=== PATIENT | female | born 1960 | race Caucasian/White ===

== ENCOUNTER 2022-09-22 13:59 | Outpatient (REF) | payer OTHER, SELFPAY | END 2022-09-22 14:00 | LOC: LAB 13:59 | PROVIDERS: PCP Family Medicine; Visit Provider Family Medicine | DX: J18.9 Pneumonia, unspecified organism (principal) | CPT/HCPCS: 87070; 87205 ==

== ENCOUNTER 2022-09-22 16:51 | Inpatient (IN) | payer OTHER, SELFPAY ==
[2022-09-22] VITALS (16 sets, daily range): BP systolic 105–123; BP diastolic 51–68; PULSE 118–133; RESP 20–28; TEMP 36.6; O2SAT 86–97; BMI 17.0
--- NOTE | 2022-09-22 17:46 | ECG_ITS ---
[facility] Test Date: 2022-09-22 Pat Name: PHOEBE STANLEY Department: Room: - Gender: Female [employer]: : 1960 Requested By: ADITHYA KENYON Order Number: [id number] Reading MD: ADITHYA KENYON Measurements Intervals Adams Rate: 131 P: 93 AK: 152 QRS: 86 QRSD: 70 T: 90 QT: 340 QTc: 417 Interpretive Statements 1120 Sinus tachycardia 4664 Twave abnormality, possible inferior ischemia 6220 Possible left atrial enlargement 9150 abnormal ECG No previous ECG available for comparison Electronically Signed On 09-23-2022 6:33:59 EDT by ADITHYA KENYON
--- NOTE | 2022-09-22 17:46 | XR_ITS ---
The [address] [address] Patient Name: PHOEBE STANLEY MRN: [id number] date: 1960 Sex: F Assigned Patient Location: ER Current Patient Location: ER Accession/Order Number: [id number] Exam Date: 09/22/2022 18:13 Report Date: 09/22/2022 18:41 At the request of: TRAV CHEN Procedure: XR chest 1V EXAM: XR chest 1V HISTORY: copd COMPARISON: 09/01/2022. TECHNIQUE: AP view of the chest. FINDINGS: There is no focal airspace consolidation. Peribronchial cuffing is noted. There are prominence of interstitial markings in bilateral lower lobes. The lungs are hyperinflated. There are stable biapical reticular opacities, likely scarring or mild atelectasis. The cardiomediastinal silhouette is not enlarged. There is blunting of right costophrenic sulcus. No evidence of pneumothorax are identified. No acute osseous abnormality. IMPRESSION: No focal consolidation. Lungs appear hyperinflated, suggestive of obstructive lung disease. Bilateral prominent interstitial markings which may represent edema, infiltrates or interstitial lung disease. Peribronchial cuffing, suggestive of viral or reactive airways disease. Blunting of right costophrenic sulcus, which may be related to a small effusion or scarring. Electronically authenticated by: NASREEN BELLO Date: 09/22/2022 18:41
[2022-09-22] MEDS: ALBUTEROL SULFATE 2.5 MG/3 ML VIAL NEB IH (17:54)
--- NOTE | 2022-09-22 18:14 | ED.GENADUL1 ---
Documented by User: Roopa Lee 09/22/22 19:30 HPI - General Adult General Chief complaint: Shortness of Breath/Dyspnea Stated complaint: TROUBLE BREATHING Time Seen by Provider: 09/22/22 17:46 Source: patient Mode of arrival: Wheelchair Limitations: no limitations History of Present Illness HPI narrative: 62-year-old female presents with a chief complaint of shortness of breath. Patient has a history of chronic obstructive pulmonary disease wears 2 L of oxygen home. Patient states she was seen and admitted in August for the same symptoms. On her primary care physician today and told him of her symptoms anyone her to be admitted here to the hospital. Patient states she's had increased work of breathing. She does generally range around eighty-five eighty percent on HER-2 liters of home she is up and active. She states she been dropping below at home. Patient states she no longer smokes. Denies any fever. Denies chest pain, states she completed her dose of steroids yesterday. Related Data Home Medications Medication Instructions Recorded Confirmed albuterol sulfate 90 mcg/actuation 2 puff inhalation Q4H PRN 09/22/22 09/22/22 aerosol inhaler (Ventolin HFA) shortness of breath or wheezing budesonide 0.5 mg/2 mL suspension 1 mg inhalation Q12H 09/22/22 09/22/22 for nebulization budesonide 180 mcg/actuation 2 inh inhalation Q12H 09/22/22 09/22/22 breath activated powder inhaler (Pulmicort Flexhaler) cetirizine 10 mg tablet 10 mg PO DAILY 09/22/22 09/22/22 guaifenesin 600 mg tablet, 600 mg PO Q12H PRN congestion 09/22/22 09/22/22 extended release 12 hr (Mucus Relief ER) ipratropium 0.5 mg-albuterol 3 mg 3 ml inhalation Q6H PRN shortness 09/22/22 09/22/22 (2.5 mg base)/3 mL nebulization of breath soln montelukast 10 mg tablet 10 mg PO .hs 09/22/22 09/22/22 theophylline 400 mg 200 mg PO Q24H 09/22/22 09/22/22 tablet,extended release 24 hr tiotropium 2.5 mcg-olodaterol 2.5 2 puff inhalation Q24H 09/22/22 09/22/22 mcg/actuation mist for inhalation (Stiolto Respimat) Allergies Allergy/AdvReac Type Severity Reaction Status Date / Time levofloxacin [From Levaquin] Allergy Intermediate Verified 09/22/22 17:02 Review of Systems ROS Narrative All Systems are negative except as noted/marked.All systems reviewed and otherwise negative [facility] Medical History (Updated 09/23/22 @ 07:52 by Kaiden Bass MD) Family History (Updated 09/22/22 @ 21:17 by Veronika Almeida) Other Family history of myocardial infarction Social History (Updated 09/22/22 @ 21:18 by Veronika Almeida) Within the past year, how often did you have a drink containing alcohol: never Score interpretation: A score less than 3 is consistent with normal alcohol consumption. Smoking status: Former smoker Non-prescribed substance use: denies use Previous occupational history: disabled Highest level of school completed/degree received: GED or equivalent Are you now , , , , never or living with a partner: In a typical week, how many times do you talk on the telephone with family, friends, or neighbors: 3 or more times per week How often do you get together with friends or relatives: 3 or more times per week How often do you attend uatsdin or orthodox services: 1-3 times per year Do you belong to any clubs or organizations such as uatsdin groups unions, fraternal or athletic groups, or school groups: no Total score: 2 Score interpretation: A score of greater than or equal to 2 indicates the lowest level of social isolation. Little interest or pleasure in doing things: not at all Feeling down, depressed, or hopeless: not at all Feel stressed/tense/nervous/anxious/difficulty sleeping: not at all Do you think of yourself as: straight/heterosexual Gender Identity: female Exam Narrative Exam Narrative: P Nurses note and vital signs reviewed and patient is not hypoxic. General: The patient appears well and in no apparent distress. Patient is resting comfortably on cart. Skin: Warm, dry, no pallor noted. There is no rash noted. Head: Normocephalic, atraumatic Eye: Normal conjunctiva, no drainage, EOMI. PERRL Ears, Nose, Mouth, and Throat: oral mucosa is moist. Nares patent. Mouth without vesicles. Ear canals patent. Tm's without Erythema Cardiovascular: Regular Rate and Rhythm Respiratory: Diminished with accessory muscle usage wheezing throughout bilateral lower lungs . . Patient is in mild distress, n Back: non-tender, no CVA tenderness bilaterally to percussion. Musculoskeletal: The patient has no evidence of calf tenderness, no pitting edema, symmetrical pulses noted bilaterally Neurological: A&O x4, normal speech Psychiatric: Cooperative Constitutional Vital Signs - 24 hr 09/22/22 16:59 09/22/22 17:54 09/22/22 18:16 Temperature 97.8 F Pulse Rate 121 H Pulse Rate [Monitor] 130 H Respiratory Rate 24 20 Blood Pressure Blood Pressure [Left Arm] 123/68 H Pulse Oximetry 95 97 93 L Oxygen Delivery Method Nasal Cannula Nasal Cannula Oxygen Delivery Flow Rate 2 2 09/22/22 18:03 09/22/22 18:04 09/22/22 18:05 Temperature Pulse Rate Pulse Rate [Monitor] Respiratory Rate Blood Pressure 114/51 L Blood Pressure [Left Arm] Pulse Oximetry 91 L 86 L 87 L Oxygen Delivery Method Oxygen Delivery Flow Rate 09/22/22 18:06 09/22/22 19:23 Temperature Pulse Rate 133 H Pulse Rate [Monitor] Respiratory Rate 26 H Blood Pressure 113/63 Blood Pressure [Left Arm] Pulse Oximetry 95 96 Oxygen Delivery Method Nasal Cannula Oxygen Delivery Flow Rate 4 Course Vital Signs Vital signs: Vital Signs Temperature 97.8 F 09/22/22 16:59 Pulse Rate 130 H 09/22/22 16:59 Respiratory Rate 24 09/22/22 16:59 Blood Pressure 123/68 H 09/22/22 16:59 Pulse Oximetry 95 09/22/22 16:59 Oxygen Delivery Method Nasal Cannula 09/22/22 16:59 Oxygen Delivery Flow Rate 2 09/22/22 16:59 Temperature 97.6 F 09/24/22 05:50 Pulse Rate 112 H 09/24/22 10:21 Respiratory Rate 18 09/24/22 05:50 Blood Pressure 103/61 09/24/22 05:50 Pulse Oximetry 95 09/24/22 05:50 Oxygen Delivery Method Nasal Cannula 09/24/22 07:08 Oxygen Delivery Flow Rate 2 09/24/22 07:08 Fraction of Inspired Oxygen 2 09/23/22 20:00 Medical Decision Making MDM Narrative Medical decision making narrative: 62-year-old female with a history of chronic obstructive pulmonary disease presents the emergency room with difficulty breathing. She wears oxygen at home at 2 L. She states over last several days she's had increased shortness of breath. Her baseline oxygen saturation home was between eighty-eight and ninety-two percent. She states when she was doing dishes earlier today was in the low 80s. She called her primary care physician who is just from the emergency room and be admitted. Chest x-ray consistent with chronic obstructive pulmonary disease. CBC BMP within normal limits. Venous blood gas shows a pH of 7.66 and a vCO2 of 29. Patient was medicated here with site Medrol and a breathing treatment. Her breathing has improved. Patient continues to be tachycardic which has been her baseline previously. Patient denies any chest pain. Medical Records Medical records reviewed: Yes I reviewed the patient's medical records Lab Data Lab results reviewed: Yes I reviewed the patient's lab results Labs: Lab Results 09/22/22 09/22/22 09/22/22 Range/Units 18:07 18:13 19:10 WBC 10.3 (4.0-11.0) 10^3/uL RBC 4.21 (4.20-5.40) 10^6/uL Hgb 11.4 L (12.0-16.0) g/dL Hct 36.2 (36.0-48.0) % MCV 86.0 (81.0-99.0) fL MCH 27.1 (26.7-34.0) pg MCHC 31.5 (29.9-35.2) g/dL RDW 15.2 H (11.0-15.0) % Plt Count 194 (150-450) 10^3/uL MPV 9.6 (9.5-13.5) fL Neut % (Auto) 78.4 H (43.0-75.0) % Lymph % (Auto) 11.6 L (20.5-60.0) % Edmunds % (Auto) 7.8 (1.7-12.0) % Eos % (Auto) 1.6 (0.9-7.0) % Baso % (Auto) 0.3 (0.2-2.0) % Neut # (Auto) 8.1 H (1.4-6.5) 10^3/uL Lymph # (Auto) 1.2 (1.2-3.8) 10^3/uL Edmunds # (Auto) 0.8 (0.3-0.8) 10^3/uL Eos # (Auto) 0.2 (0.0-0.7) 10^3/uL Baso # (Auto) 0.0 (0.0-0.1) 10^3/uL Abs Immat Gran (auto) 0.03 (0.00-0.03) 10^3/uL Imm/Tot Granulo (auto) 0.3 (0.0-0.5) % VBG pH 7.665 H (7.330-7.430) VBG pCO2 29.8 L (40.0-52.0) mmHg Sodium 137 (136-145) mmol/L Potassium 4.0 (3.5-5.1) mmol/L Chloride 97 L (98-107) mmol/L Carbon Dioxide 39.5 H (21.0-32.0) mmol/L Anion Gap 4.5 BUN 6.0 L (7.0-18.0) mg/dL Creatinine 0.60 (0.55-1.02) mg/dL Est GFR ( Amer) >60 (>=60) Est GFR (Non-Af Amer) >60 (>=60) BUN/Creatinine Ratio 10.0 Glucose 114 H (74-106) mg/dL Calcium 9.1 (8.5-10.1) mg/dL Total Bilirubin 0.2 (0.2-1.0) mg/dL AST 21 (15-37) U/L ALT 36 (14-59) U/L Alkaline Phosphatase 86 (46-116) U/L Troponin I High Sens 4.5 (4.0-51.3) pg/mL NT-Pro-B Natriuret Pep 91.0 (<=900.0) pg/mL Total Protein 7.1 (6.4-8.2) g/dL Albumin 2.8 L (3.4-5.0) g/dL Globulin 4.3 g/dL Albumin/Globulin Ratio 0.7 ECG Data Interpretation: 09/22/22 sinus tachycardia 331 bpm, MA interval 102 ms, QRS duration 70 ms similar compared to previous EKG taken on 09/01/2022. No STEMI Discharge Plan Discharge Chief Complaint: Shortness of Breath/Dyspnea Clinical Impression: Acute exacerbation of chronic obstructive pulmonary disease Patient Disposition: Admitted As Inpatient Time of Disposition Decision: 19:32 Condition: Good Discharge Date/Time: 09/22/22 20:26 Documented by User: Berenice Kelly MD 09/24/22 10:24 HPI - General Adult General Chief complaint: Shortness of Breath/Dyspnea Stated complaint: TROUBLE BREATHING Time Seen by Provider: 09/22/22 17:46 Related Data Home Medications Medication Instructions Recorded Confirmed albuterol sulfate 90 mcg/actuation 2 puff inhalation Q4H PRN 09/22/22 09/22/22 aerosol inhaler (Ventolin HFA) shortness of breath or wheezing budesonide 0.5 mg/2 mL suspension 1 mg inhalation Q12H 09/22/22 09/22/22 for nebulization budesonide 180 mcg/actuation 2 inh inhalation Q12H 09/22/22 09/22/22 breath activated powder inhaler (Pulmicort Flexhaler) cetirizine 10 mg tablet 10 mg PO DAILY 09/22/22 09/22/22 guaifenesin 600 mg tablet, 600 mg PO Q12H PRN congestion 09/22/22 09/22/22 extended release 12 hr (Mucus Relief ER) ipratropium 0.5 mg-albuterol 3 mg 3 ml inhalation Q6H PRN shortness 09/22/22 09/22/22 (2.5 mg base)/3 mL nebulization of breath soln montelukast 10 mg tablet 10 mg PO .hs 09/22/22 09/22/22 theophylline 400 mg 200 mg PO Q24H 09/22/22 09/22/22 tablet,extended release 24 hr tiotropium 2.5 mcg-olodaterol 2.5 2 puff inhalation Q24H 09/22/22 09/22/22 mcg/actuation mist for inhalation (Stiolto Respimat) Allergies Allergy/AdvReac Type Severity Reaction Status Date / Time levofloxacin [From Levaquin] Allergy Intermediate Verified 09/22/22 17:02 [facility] Medical History (Updated 09/23/22 @ 07:52 by Kaiden Bass MD) Family History (Updated 09/22/22 @ 21:17 by Veronika Almeida) Other Family history of myocardial infarction Social History (Updated 09/22/22 @ 21:18 by Veronika Almeida) Within the past year, how often did you have a drink containing alcohol: never Score interpretation: A score less than 3 is consistent with normal alcohol consumption. Smoking status: Former smoker Non-prescribed substance use: denies use Previous occupational history: disabled Highest level of school completed/degree received: GED or equivalent Are you now , , , , never or living with a partner: In a typical week, how many times do you talk on the telephone with family, friends, or neighbors: 3 or more times per week How often do you get together with friends or relatives: 3 or more times per week How often do you attend uatsdin or orthodox services: 1-3 times per year Do you belong to any clubs or organizations such as uatsdin groups unions, [employer] or athletic groups, or school groups: no Total score: 2 Score interpretation: A score of greater than or equal to 2 indicates the lowest level of social isolation. Little interest or pleasure in doing things: not at all Feeling down, depressed, or hopeless: not at all Feel stressed/tense/nervous/anxious/difficulty sleeping: not at all Do you think of yourself as: straight/heterosexual Gender Identity: female Exam Constitutional Vital Signs - 24 hr 09/22/22 16:59 09/22/22 17:54 09/22/22 18:16 Temperature 97.8 F Pulse Rate 121 H Pulse Rate [Monitor] 130 H Respiratory Rate 24 20 Blood Pressure Blood Pressure [Left Arm] 123/68 H Pulse Oximetry 95 97 93 L Oxygen Delivery Method Nasal Cannula Nasal Cannula Oxygen Delivery Flow Rate 2 2 09/22/22 18:03 09/22/22 18:04 09/22/22 18:05 Temperature Pulse Rate Pulse Rate [Monitor] Respiratory Rate Blood Pressure 114/51 L Blood Pressure [Left Arm] Pulse Oximetry 91 L 86 L 87 L Oxygen Delivery Method Oxygen Delivery Flow Rate 09/22/22 18:06 09/22/22 19:23 Temperature Pulse Rate 133 H Pulse Rate [Monitor] Respiratory Rate 26 H Blood Pressure 113/63 Blood Pressure [Left Arm] Pulse Oximetry 95 96 Oxygen Delivery Method Nasal Cannula Oxygen Delivery Flow Rate 4 Course Vital Signs Vital signs: Vital Signs Temperature 97.8 F 09/22/22 16:59 Pulse Rate 130 H 09/22/22 16:59 Respiratory Rate 24 09/22/22 16:59 Blood Pressure 123/68 H 09/22/22 16:59 Pulse Oximetry 95 09/22/22 16:59 Oxygen Delivery Method Nasal Cannula 09/22/22 16:59 Oxygen Delivery Flow Rate 2 09/22/22 16:59 Temperature 97.6 F 09/24/22 05:50 Pulse Rate 112 H 09/24/22 10:21 Respiratory Rate 18 09/24/22 05:50 Blood Pressure 103/61 09/24/22 05:50 Pulse Oximetry 95 09/24/22 05:50 Oxygen Delivery Method Nasal Cannula 09/24/22 07:08 Oxygen Delivery Flow Rate 2 09/24/22 07:08 Fraction of Inspired Oxygen 2 09/23/22 20:00 Medical Decision Making MDM Narrative Medical decision making narrative: 62-year-old female with a history of chronic obstructive pulmonary disease presents the emergency room with difficulty breathing. She wears oxygen at home at 2 L. She states over last several days she's had increased shortness of breath. Her baseline oxygen saturation home was between eighty-eight and ninety-two percent. She states when she was doing dishes earlier today was in the low 80s. She called her primary care physician who is just from the emergency room and be admitted. Chest x-ray consistent with chronic obstructive pulmonary disease. CBC BMP within normal limits. Venous blood gas shows a pH of 7.66 and a vCO2 of 29. Patient was medicated here with site Medrol and a breathing treatment. Her breathing has improved. Patient continues to be tachycardic which has been her baseline previously. Patient denies any chest pain. Attending physician attestation I have seen and evaluated this patient. I have reviewed the mid-level provider?s documentation medical decision making and treatment plan. I agree with the mid-level provider?s assessment, and plan. Lab Data Labs: Lab Results 06/04/0409/22/22 09/22/22 Range/Units 18:07 18:13 19:10 WBC 10.3 (4.0-11.0) 10^3/uL RBC 4.21 (4.20-5.40) 10^6/uL Hgb 11.4 L (12.0-16.0) g/dL Hct 36.2 (36.0-48.0) % MCV 86.0 (81.0-99.0) fL MCH 27.1 (26.7-34.0) pg MCHC 31.5 (29.9-35.2) g/dL RDW 15.2 H (11.0-15.0) % Plt Count 194 (150-450) 10^3/uL MPV 9.6 (9.5-13.5) fL Neut % (Auto) 78.4 H (43.0-75.0) % Lymph % (Auto) 11.6 L (20.5-60.0) % Edmunds % (Auto) 7.8 (1.7-12.0) % Eos % (Auto) 1.6 (0.9-7.0) % Baso % (Auto) 0.3 (0.2-2.0) % Neut # (Auto) 8.1 H (1.4-6.5) 10^3/uL Lymph # (Auto) 1.2 (1.2-3.8) 10^3/uL Edmunds # (Auto) 0.8 (0.3-0.8) 10^3/uL Eos # (Auto) 0.2 (0.0-0.7) 10^3/uL Baso # (Auto) 0.0 (0.0-0.1) 10^3/uL Abs Immat Gran (auto) 0.03 (0.00-0.03) 10^3/uL Imm/Tot Granulo (auto) 0.3 (0.0-0.5) % VBG pH 7.665 H (7.330-7.430) VBG pCO2 29.8 L (40.0-52.0) mmHg Sodium 137 (136-145) mmol/L Potassium 4.0 (3.5-5.1) mmol/L Chloride 97 L (98-107) mmol/L Carbon Dioxide 39.5 H (21.0-32.0) mmol/L Anion Gap 4.5 BUN 6.0 L (7.0-18.0) mg/dL Creatinine 0.60 (0.55-1.02) mg/dL Est GFR ( Amer) >60 (>=60) Est GFR (Non-Af Amer) >60 (>=60) BUN/Creatinine Ratio 10.0 Glucose 114 H (74-106) mg/dL Calcium 9.1 (8.5-10.1) mg/dL Total Bilirubin 0.2 (0.2-1.0) mg/dL AST 21 (15-37) U/L ALT 36 (14-59) U/L Alkaline Phosphatase 86 (46-116) U/L Troponin I High Sens 4.5 (4.0-51.3) pg/mL NT-Pro-B Natriuret Pep 91.0 (<=900.0) pg/mL Total Protein 7.1 (6.4-8.2) g/dL Albumin 2.8 L (3.4-5.0) g/dL Globulin 4.3 g/dL Albumin/Globulin Ratio 0.7 Discharge Plan Discharge Chief Complaint: Shortness of Breath/Dyspnea Clinical Impression: Acute exacerbation of chronic obstructive pulmonary disease Patient Disposition: Admitted As Inpatient Time of Disposition Decision: 19:32 Condition: Good Discharge Date/Time: 09/22/22 20:26
[2022-09-22 18:22] LABS: Basophils Percent Auto 0.3 % (0.2-2.0); Eosinophils Absolute Auto 0.2 10^3/uL (0.0-0.7); Eosinophils Percent Auto 1.6 % (0.9-7.0); Hematocrit 36.2 % (36.0-48.0); Hemoglobin 11.4 g/dL (12.0-16.0); Immature Granulocytes Abs Auto 0.03 10^3/uL (0.00-0.03); Immature Granulocytes Pct Auto 0.3 % (0.0-0.5); Lymphocytes Absolute Auto 1.2 10^3/uL (1.2-3.8); Lymphocytes Percent Auto 11.6 % (20.5-60.0); Mean Corpuscular HGB Conc 31.5 g/dL (29.9-35.2); Mean Corpuscular Hemoglobin 27.1 pg (26.7-34.0); Mean Platelet Volume 9.6 fL (9.5-13.5); Monocytes Absolute Auto 0.8 10^3/uL (0.3-0.8); Monocytes Percent Auto 7.8 % (1.7-12.0); Neutrophils Absolute Auto 8.1 10^3/uL (1.4-6.5); Neutrophils Percent Auto 78.4 % (43.0-75.0); Platelet Count 194 10^3/uL (150-450); Red Blood Count 4.21 10^6/uL (4.20-5.40); Red Cell Distribution Width 15.2 % (11.0-15.0); White Blood Count 10.3 10^3/uL (4.0-11.0)
[2022-09-22] MEDS: METHYLPREDNISOLONE SOD SUCC PF 125 MG/2 ML VIAL 80 MG IVP (18:29)
[2022-09-22 18:54] LABS: Alanine Aminotransferase 36 U/L (14-59); Albumin Globulin Ratio 0.7; Albumin Level 2.8 g/dL (3.4-5.0); Alkaline Phosphatase 86 U/L (46-116); Anion Gap 4.5; Aspartate Amino Transferase 21 U/L (15-37); Bilirubin Total 0.2 mg/dL (0.2-1.0); Calcium 9.1 mg/dL (8.5-10.1); Carbon Dioxide 39.5 mmol/L (21.0-32.0); Chloride 97 mmol/L (98-107); Estimated GFR (African America >60 (>=60); Estimated GFR (Non-African Ame >60 (>=60); Globulin 4.3 g/dL; Glucose 114 mg/dL (74-106); Sodium 137 mmol/L (136-145); Total Protein 7.1 g/dL (6.4-8.2); Troponin I High Sensitivity 4.5 pg/mL (4.0-51.3)
[2022-09-22 19:15] LABS: pH VBG 7.665 (7.330-7.430)
[2022-09-22 19:16] LABS: PCO2 VBG 29.8 mmHg (40.0-52.0)
--- NOTE | 2022-09-22 22:15 | P.PN_ITS ---
Progress Note: Subjective Subjective Interval history: CC: Shortness of breath HPI: 62 year old female former smoker with history of COPD 02 dependent with frequent medical visits for COPD exacerbation sent from PCP office for evaluation of respiratory distress. patient reports she was recently hospitalized for COPD exacerbation and completed antibiotics and prednisone taper yesterday, she continues to fee lshort of breath that got worse 3 days ago. dyspnea worse with minimal activity. denies any chest pain, fevers, orthopnea, edema, has a productive cough, denies smoking or exposure to chemical inhalation. seen at PCP who referred her to ER. CXR without acute intrathoracic findings, labs near baseline, vitals remarkable for sinus tachycardia for which she states is chronic. denies any recent cardiac evaluation, denies exertional chest pain. solumedrol and duoneb treatemnt given and hospital medicine consulted for admission. Allergies: Levaquin Home medications: reviewed and charted PMHx:COPD PSHx: none recently FHx: father with COPD SHx: no active tobacco or illicity drug use, ROS: negaitve except for HPI Exam Narrative Exam Narrative: Physical Exam: vitals recorded GEN: sitting up in bed, in no distress, AO x3, appears underweight HEENT: NC/AT, EOMI, trachea midline CVS: sinus tachycardia, no edema Lungs: bilateral air entry, no respiratory distress GI: soft, NT, no visible masses Neuro: No focal deficits Psych: normal affect Constitutional Vital Signs - 24 hr 09/22/22 16:59 09/22/22 17:54 09/22/22 18:16 Temperature 97.8 F Pulse Rate 121 H Pulse Rate [Monitor] 130 H Respiratory Rate 24 20 Blood Pressure Blood Pressure [Left Arm] 123/68 H Pulse Oximetry 95 97 93 L Oxygen Delivery Method Nasal Cannula Nasal Cannula Oxygen Delivery Flow Rate 2 2 09/22/22 18:03 09/22/22 18:04 09/22/22 18:05 Temperature Pulse Rate Pulse Rate [Monitor] Respiratory Rate Blood Pressure 114/51 L Blood Pressure [Left Arm] Pulse Oximetry 91 L 86 L 87 L Oxygen Delivery Method Oxygen Delivery Flow Rate 09/22/22 18:06 09/22/22 19:23 09/22/22 18:06 Temperature Pulse Rate 133 H 126 H Pulse Rate [Monitor] Respiratory Rate 26 H 26 H Blood Pressure 113/63 113/63 Blood Pressure [Left Arm] Pulse Oximetry 95 96 92 L Oxygen Delivery Method Nasal Cannula Oxygen Delivery Flow Rate 4 09/22/22 18:06 09/22/22 19:37 09/22/22 20:00 Temperature Pulse Rate 126 H 121 H 124 H Pulse Rate [Monitor] Respiratory Rate 25 H 23 28 H Blood Pressure 113/63 105/64 110/63 Blood Pressure [Left Arm] Pulse Oximetry 94 L 92 L 92 L Oxygen Delivery Method Oxygen Delivery Flow Rate 09/22/22 20:22 09/22/22 20:35 09/22/22 20:26 Temperature 97.9 F Pulse Rate 130 H Pulse Rate [Monitor] Respiratory Rate 20 Blood Pressure Blood Pressure [Left Arm] Pulse Oximetry 96 93 L 96 Oxygen Delivery Method Nasal Cannula Nasal Cannula Nasal Cannula Oxygen Delivery Flow Rate 4 2 2 09/22/22 22:05 Temperature Pulse Rate 118 H Pulse Rate [Monitor] Respiratory Rate Blood Pressure Blood Pressure [Left Arm] Pulse Oximetry Oxygen Delivery Method Oxygen Delivery Flow Rate Progress Note: Objective Labs Labs: Short CBC 09/22/22 Range/Units 18:07 WBC 10.3 (4.0-11.0) 10^3/uL Hgb 11.4 L (12.0-16.0) g/dL Hct 36.2 (36.0-48.0) % Plt Count 194 (150-450) 10^3/uL BMP 09/22/22 18:13 Sodium 137 Potassium 4.0 Chloride 97 L Carbon Dioxide 39.5 H BUN 6.0 L Creatinine 0.60 Glucose 114 H Calcium 9.1 Liver Function 09/22/22 Range/Units 18:13 Total Bilirubin 0.2 (0.2-1.0) mg/dL AST 21 (15-37) U/L ALT 36 (14-59) U/L Alkaline Phosphatase 86 (46-116) U/L Albumin 2.8 L (3.4-5.0) g/dL Progress Note: A&P Assessment and Plan (1) Acute exacerbation of chronic obstructive pulmonary disease: Assessment and Plan: Admit to telemetry bed schedule steroids and duonebs. doxycycline check Viral panel continue home 02, Bipap prn continue to follow up with outpatient pulmonary doctor update Flu and pneumococcal vaccines consider checking alpha-1 antitrypsin (normal LFT) optimize inhalers at discharge referral to outpatient pulmonary rehab CT chest lung Ca screening outpatient for the sinus tachycardia, patient reports its chronic - check TSH, Echo, and theophylline level (2) Chronic obstructive pulmonary disease: Plan DVT ppx- Lovenox, Medications review: home medication form completed goals of care- [employer]: discussed with ER physician, bedside nurse and updated patient of plan of care, all questions answered to their satisfaction. disposition- home when medically stable As the provider of this telehealth evaluation, requested by the patient's evaluating physician, I attest that I introduced myself to the patient, provided my credentials and determined that telemedicine via a real time 2 way interactive audio and video platform is an appropriate and effective means of providing this service. I reviewed the patient;s chart and had a discussion with the member of the patient's treatment team. the patient and I mutually agreed with continuation of this evaluation via telemedicine. the patient consented for the telemedicine evaluation. this virtual encounter was taken place from [place] and lasted for about 30 minutes. the nurse was present during the entire time of the encounter and was able to move the stethoscope in appropriate directions. the patient was evaluated at 09/22/2022 @ 2320 Telemedicine Attestation Telemedicine Attestation I conducted this encounter from [[place]] via secure live, [id number] video conference with the patient, CHARGE TEST-CHARGES located at [facility] [place]. Prior to the interview, the risks and benefits of telemedicine were discussed with the patient and verbal consent was obtained.
--- NOTE | 2022-09-22 22:17 | CA_ITS ---
Patient Name Site Name PHOEBE STANLEY [facility] Account No Medical Record Number Age Sex Date Time [id number] [facility]:[id number] F 09/23/2022 10:59 At the Request Of Kaiden Bass ECHOCARDIOGRAM REPORT PROCEDURE: CA ECHO DOPPLER COMPLETE INDICATIONS: Tachycardia, shortness of breath, COPD, lung cancer COMPARISON: None. DESCRIPTION: COMPLETE ECHOCARDIOGRAM Real-time transthoracic echocardiography with 2D, M-mode, spectral and color flow Doppler performed. QUALITY: LEFT VENTRICLE: Normal chamber size. Normal left ventricular wall thickness. Systolic function appears preserved. LV EF: Normal left ventricular ejection fraction, (55%). DIASTOLIC: ATRIAL SEPTUM: Visually appears intact. LEFT ATRIUM: Normal chamber size. RIGHT ATRIUM: Normal chamber size. RIGHT VENTRICLE: Normal chamber size. Borderline right ventricular systolic function. TRICUSPID VALVE: Normal mobility and thickness. No stenosis with no regurgitation. MITRAL VALVE: Mildly thickened with normal mobility. No evidence of mitral valve stenosis. There is no mitral annular calcification. No mitral regurgitation. AORTIC VALVE: Normal trileaflet appearance. No visible sclerosis. Normal leaflet mobility. No evidence of aortic valve stenosis. No aortic regurgitation. AORTIC ROOT: Normal diameter and appearance. PULMONIC VALVE: Normal thickness and mobility. No stenosis. Trivial regurgitation. PERICARDIUM: No evidence of pericardial effusion. IVC: Collapses with inspirations. IVC is normal in size. PLEURA: CONCLUSION: 1. Left ventricular systolic function appears preserved. LVEF is 55%. 2. Normal right ventricular size with borderline systolic function. 3. No significant valvular dysfunction. 4. Unable to assess right-sided pressures due to lack of measurable tricuspid regurgitation. 5. No pericardial effusion. 6. The patient appears to be in sinus tachycardia during the exam. Adult Echocardiography Procedure Report Left Ventricle LVEDD (3.7 - 5.6 cm): 3.12 cm LVESD (2.2 - 4.0 cm): 1.95 cm LVIVS thickness (0.6 - 1.2 cm): 0.88 cm LVPW thickness (0.5 - 1.0 cm): 0.79 cm e': 0.13 m/s E - e': 4.00 LVOT Max Gradient: 2.90 mm[Hg] LVOT Area (cm2): 0.85 m/s Peak Velocity (LVOT): 0.85 m/s LVOT Diameter 2.17 cm Left Atrium LA Volume Index (2D A2C): 23.80 ml/m2 Left Atrium Systolic Dimension: 2.19 cm Mitral Valve MV E to A Ratio: 0.71 Mitral Valve A-Wave Peak Velocity: 0.75 m/s Mitral Valve E-Wave Peak Velocity: 0.53 m/s Right Ventricle Aorta AO Root Diam: 2.83 cm Aortic Valve AoV Area (Peak Patrick): 2.66 cm2, 2.66 cm2 Peak Velocity(Antegrade Flow): 1.18 m/s Peak Gradient(Antegrade Flow): 5.60 mm[Hg] Tricuspid Valve Pulmonic Valve Peak Velocity: 1.02 m/s Peak Gradient: 4.18 mm[Hg] Right Atrium Right Atrium Systolic Pressure: 11.38 ml, 14.19 ml, 8.57 ml Dictated by: Eliu Stanford M.D. on 09/23/2022 at 18:47 Approved by: Eliu Stanford M.D. on 09/23/2022 at 18:50
[2022-09-22 22:47] LABS: Magnesium 2.2 mg/dL (1.8-2.4)
[2022-09-22 22:52] LABS: Theophylline 4.5 ug/mL (10.0-20.0)
[2022-09-22 23:01] LABS: Thyroid Stimulating Hormone 0.438 uIU/mL (0.358-3.740)
[2022-09-22] MEDS: BUDESONIDE 0.5 MG/2 ML AMPULE NEB 1 MG IH (23:31)
[2022-09-22] MEDS: IPRATROPIUM/ALBUTEROL SULFATE 3 ML AMPUL.NEB IH (23:43)
[2022-09-23] VITALS (24 sets, daily range): BP systolic 112–115; BP diastolic 65–73; PULSE 77–165; RESP 16–22; TEMP 36.5–36.6; O2SAT 93–97
--- NOTE | 2022-09-23 01:08 | W.PM.TELEPN ---
Exam Constitutional Vital Signs - 24 hr 09/22/22 16:59 09/22/22 17:54 09/22/22 18:16 Temperature 97.8 F Pulse Rate 121 H Pulse Rate [Monitor] 130 H Respiratory Rate 24 20 Blood Pressure Blood Pressure [Left Arm] 123/68 H Pulse Oximetry 95 97 93 L Oxygen Delivery Method Nasal Cannula Nasal Cannula Oxygen Delivery Flow Rate 2 2 09/22/22 18:03 09/22/22 18:04 09/22/22 18:05 Temperature Pulse Rate Pulse Rate [Monitor] Respiratory Rate Blood Pressure 114/51 L Blood Pressure [Left Arm] Pulse Oximetry 91 L 86 L 87 L Oxygen Delivery Method Oxygen Delivery Flow Rate 09/22/22 18:06 09/22/22 19:23 09/22/22 18:06 Temperature Pulse Rate 133 H 126 H Pulse Rate [Monitor] Respiratory Rate 26 H 26 H Blood Pressure 113/63 113/63 Blood Pressure [Left Arm] Pulse Oximetry 95 96 92 L Oxygen Delivery Method Nasal Cannula Oxygen Delivery Flow Rate 4 09/22/22 18:06 09/22/22 19:37 09/22/22 20:00 Temperature Pulse Rate 126 H 121 H 124 H Pulse Rate [Monitor] Respiratory Rate 25 H 23 28 H Blood Pressure 113/63 105/64 110/63 Blood Pressure [Left Arm] Pulse Oximetry 94 L 92 L 92 L Oxygen Delivery Method Oxygen Delivery Flow Rate 09/22/22 20:22 09/22/22 20:35 09/22/22 20:26 Temperature 97.9 F Pulse Rate 130 H Pulse Rate [Monitor] Respiratory Rate 20 Blood Pressure Blood Pressure [Left Arm] Pulse Oximetry 96 93 L 96 Oxygen Delivery Method Nasal Cannula Nasal Cannula Nasal Cannula Oxygen Delivery Flow Rate 4 2 2 09/22/22 22:05 09/22/22 23:49 09/22/22 23:49 Temperature Pulse Rate 118 H 118 H Pulse Rate [Monitor] Respiratory Rate 22 Blood Pressure Blood Pressure [Left Arm] Pulse Oximetry 94 L 93 L Oxygen Delivery Method Nasal Cannula Nasal Cannula Oxygen Delivery Flow Rate 2 2 09/23/22 00:03 Temperature Pulse Rate 126 H Pulse Rate [Monitor] Respiratory Rate Blood Pressure Blood Pressure [Left Arm] Pulse Oximetry Oxygen Delivery Method Oxygen Delivery Flow Rate Progress Note: Objective Labs Labs: Short CBC 09/22/22 Range/Units 18:07 WBC 10.3 (4.0-11.0) 10^3/uL Hgb 11.4 L (12.0-16.0) g/dL Hct 36.2 (36.0-48.0) % Plt Count 194 (150-450) 10^3/uL BMP 09/22/22 18:13 Sodium 137 Potassium 4.0 Chloride 97 L Carbon Dioxide 39.5 H BUN 6.0 L Creatinine 0.60 Glucose 114 H Calcium 9.1 Liver Function 09/22/22 Range/Units 18:13 Total Bilirubin 0.2 (0.2-1.0) mg/dL AST 21 (15-37) U/L ALT 36 (14-59) U/L Alkaline Phosphatase 86 (46-116) U/L Albumin 2.8 L (3.4-5.0) g/dL Telemedicine Attestation Telemedicine Attestation I conducted this encounter from [] via secure live, [id number] video conference with the patient, CHARGE TEST-CHARGES located at [facility] with []. Prior to the interview, the risks and benefits of telemedicine were discussed with the patient and verbal consent was obtained.
[2022-09-23] MEDS: IPRATROPIUM/ALBUTEROL SULFATE 3 ML AMPUL.NEB IH (04:30)
--- NOTE | 2022-09-23 07:50 | P.HP_ITS ---
H&P: HPI History of Present Illness Chief complaint: TROUBLE BREATHING, ACUTE EXACERBATION COPD Narrative: Patient well-known to me from the office and frequent hospitalizations, call the office over the last several days with increasing shortness of breath, medications were adjusted with no improvement, recommended admission, per protocol she needed to go through the emergency room. In ER found of acute exacerbation of COPD, patient admitted for work-up and treatment of same [facility] Medical History (Updated 09/23/22 @ 07:52 by Kaiden Bass MD) Family History (Updated 09/22/22 @ 21:17 by Veronika Almeida) Other Family history of myocardial infarction Social History (Updated 09/22/22 @ 21:18 by Veronika Almeida) Within the past year, how often did you have a drink containing alcohol: never Score interpretation: A score less than 3 is consistent with normal alcohol consumption. Smoking status: Former smoker Non-prescribed substance use: denies use Previous occupational history: disabled Highest level of school completed/degree received: GED or equivalent Are you now , , , , never or living with a partner: In a typical week, how many times do you talk on the telephone with family, friends, or neighbors: 3 or more times per week How often do you get together with friends or relatives: 3 or more times per week How often do you attend congregational or shinto services: 1-3 times per year Do you belong to any clubs or organizations such as congregational groups unions, [email or web address] or athletic groups, or school groups: no Total score: 2 Score interpretation: A score of greater than or equal to 2 indicates the lowest level of social isolation. Little interest or pleasure in doing things: not at all Feeling down, depressed, or hopeless: not at all Feel stressed/tense/nervous/anxious/difficulty sleeping: not at all Do you think of yourself as: straight/heterosexual Gender Identity: female Meds Home Medications and Allergies Home Medications Medication Instructions Recorded Confirmed Type albuterol sulfate 90 mcg/actuation 2 puff inhalation Q4H PRN 09/22/22 09/22/22 History aerosol inhaler (Ventolin HFA) shortness of breath or wheezing budesonide 0.5 mg/2 mL suspension 1 mg inhalation Q12H 09/22/22 09/22/22 History for nebulization budesonide 180 mcg/actuation 2 inh inhalation Q12H 09/22/22 09/22/22 History breath activated powder inhaler (Pulmicort Flexhaler) cetirizine 10 mg tablet 10 mg PO DAILY 09/22/22 09/22/22 History guaifenesin 600 mg tablet, 600 mg PO Q12H PRN congestion 09/22/22 09/22/22 History extended release 12 hr (Mucus Relief ER) ipratropium 0.5 mg-albuterol 3 mg 3 ml inhalation Q6H PRN shortness 09/22/22 09/22/22 History (2.5 mg base)/3 mL nebulization of breath soln montelukast 10 mg tablet 10 mg PO .hs 09/22/22 09/22/22 History theophylline 400 mg 200 mg PO Q24H 09/22/22 09/22/22 History tablet,extended release 24 hr tiotropium 2.5 mcg-olodaterol 2.5 2 puff inhalation Q24H 09/22/22 09/22/22 History mcg/actuation mist for inhalation (Stiolto Respimat) Allergies Allergy/AdvReac Type Severity Reaction Status Date / Time levofloxacin [From Levaquin] Allergy Intermediate Verified 09/22/22 17:02 Exam Constitutional Vital Signs - 24 hr 09/22/22 16:59 09/22/22 17:54 09/22/22 18:16 Temperature 97.8 F Pulse Rate 121 H Pulse Rate [Monitor] 130 H Respiratory Rate 24 20 Blood Pressure Blood Pressure [Left Arm] 123/68 H Blood Pressure [Right Arm] Pulse Oximetry 95 97 93 L Oxygen Delivery Method Nasal Cannula Nasal Cannula Oxygen Delivery Flow Rate 2 2 09/22/22 18:03 09/22/22 18:04 09/22/22 18:05 Temperature Pulse Rate Pulse Rate [Monitor] Respiratory Rate Blood Pressure 114/51 L Blood Pressure [Left Arm] Blood Pressure [Right Arm] Pulse Oximetry 91 L 86 L 87 L Oxygen Delivery Method Oxygen Delivery Flow Rate 09/22/22 18:06 09/22/22 19:23 09/22/22 18:06 Temperature Pulse Rate 133 H 126 H Pulse Rate [Monitor] Respiratory Rate 26 H 26 H Blood Pressure 113/63 113/63 Blood Pressure [Left Arm] Blood Pressure [Right Arm] Pulse Oximetry 95 96 92 L Oxygen Delivery Method Nasal Cannula Oxygen Delivery Flow Rate 4 09/22/22 18:06 09/22/22 19:37 09/22/22 20:00 Temperature Pulse Rate 126 H 121 H 124 H Pulse Rate [Monitor] Respiratory Rate 25 H 23 28 H Blood Pressure 113/63 105/64 110/63 Blood Pressure [Left Arm] Blood Pressure [Right Arm] Pulse Oximetry 94 L 92 L 92 L Oxygen Delivery Method Oxygen Delivery Flow Rate 09/22/22 20:22 09/22/22 20:35 09/22/22 20:26 Temperature 97.9 F Pulse Rate 130 H Pulse Rate [Monitor] Respiratory Rate 20 Blood Pressure Blood Pressure [Left Arm] Blood Pressure [Right Arm] Pulse Oximetry 96 93 L 96 Oxygen Delivery Method Nasal Cannula Nasal Cannula Nasal Cannula Oxygen Delivery Flow Rate 4 2 2 09/22/22 22:05 09/22/22 23:49 09/22/22 23:49 Temperature Pulse Rate 118 H 118 H Pulse Rate [Monitor] Respiratory Rate 22 Blood Pressure Blood Pressure [Left Arm] Blood Pressure [Right Arm] Pulse Oximetry 94 L 93 L Oxygen Delivery Method Nasal Cannula Nasal Cannula Oxygen Delivery Flow Rate 2 2 09/23/22 00:03 09/23/22 02:02 09/23/22 04:02 Temperature Pulse Rate 126 H 114 H 98 H Pulse Rate [Monitor] Respiratory Rate Blood Pressure Blood Pressure [Left Arm] Blood Pressure [Right Arm] Pulse Oximetry Oxygen Delivery Method Oxygen Delivery Flow Rate 09/23/22 04:32 09/23/22 04:44 09/23/22 06:06 Temperature Pulse Rate 104 H 112 H 77 Pulse Rate [Monitor] Respiratory Rate 18 20 Blood Pressure Blood Pressure [Left Arm] Blood Pressure [Right Arm] Pulse Oximetry 95 95 Oxygen Delivery Method Nasal Cannula Nasal Cannula Oxygen Delivery Flow Rate 2 2 09/23/22 06:25 Temperature 97.8 F Pulse Rate Pulse Rate [Monitor] Respiratory Rate 16 Blood Pressure Blood Pressure [Left Arm] Blood Pressure [Right Arm] 113/73 Pulse Oximetry Oxygen Delivery Method Nasal Cannula Oxygen Delivery Flow Rate 2 Common normals: apparent distress General appearance: in distress [facility] Common normals: moist oral mucous membranes Chest Common normals: inspection of chest normal Respiratory Common normals: no use of accessory muscles; abnormal respiratory effort Effort & inspection: symmetric chest movement, tachypneic and respiratory distress; not able to speak in complete sentences Auscultation: rhonchi and wheezes Cardio Common normals: no JVD; irregular rate Rate: tachycardic; abnormal rate GI Common normals: Normal to inspection, nondistended, normoactive bowel sounds present Back & Pelvis Common normals: no CVA tenderness and thoracic and lumbar spine normal to inspection Extremity Common normals: normal to inspection Psych Psychiatry clinicians, please identify where your Mental Status Exam is documented: Mental Status Exam documented in the separate MSE Common normals: mental status grossly normal and thought process normal Results Labs Labs: Short CBC 09/22/22 Range/Units 18:07 WBC 10.3 (4.0-11.0) 10^3/uL Hgb 11.4 L (12.0-16.0) g/dL Hct 36.2 (36.0-48.0) % Plt Count 194 (150-450) 10^3/uL BMP 09/22/22 18:13 Sodium 137 Potassium 4.0 Chloride 97 L Carbon Dioxide 39.5 H BUN 6.0 L Creatinine 0.60 Glucose 114 H Calcium 9.1 Liver Function 09/22/22 Range/Units 18:13 Total Bilirubin 0.2 (0.2-1.0) mg/dL AST 21 (15-37) U/L ALT 36 (14-59) U/L Alkaline Phosphatase 86 (46-116) U/L Albumin 2.8 L (3.4-5.0) g/dL ABG ABG results: 09/22/22 19:10 VBG pH 7.665 H VBG pCO2 29.8 L Assessment and Plan Assessment and Plan (1) Acute exacerbation of chronic obstructive pulmonary disease: (2) Chronic obstructive pulmonary disease: (3) Acute bronchitis: (4) Acute and chronic respiratory failure with hypoxia: (5) Iron deficiency anemia: (6) Sinus tachycardia: Plan Sinus tachycardia, respiratory distress, acute hypoxic respiratory failure secondary to acute exacerbation of COPD, end-stage, secondary to acute bronchitis-sputum culture was turned in yesterday, will check on results of that later today and tomorrow. Try to obtain another sample if possible, changed to IV antibiotics, IV steroids, already failed oral agents as an outpatient - 2 - 3 day hospital stay - maintain in-pt status sinus tachycardia - Night hospitalist on arrival for an echo, we will keep that, her theophylline level is actually low, her tachycardia is more likely related to her acute exacerbation of the COPD with respiratory distress Iron deficiency anemia-monitor daily, supplement
[2022-09-23] MEDS: AZITHROMYCIN 500 MG in 0.9 % SODIUM CHLORIDE 250 ML 250 MG IV (08:47)
[2022-09-23] MEDS: OMEPRAZOLE 20 MG CAPSULE.DR PO ×2 (08:48→20:55)
[2022-09-23] MEDS: THEOPHYLLINE 300 MG TAB.ER.12H PO (08:48)
[2022-09-23] MEDS: CETIRIZINE HCL 10 MG TABLET PO (08:48)
[2022-09-23] MEDS: METHYLPREDNISOLONE SOD SUCC PF 125 MG/2 ML VIAL 60 MG IVP ×3 (08:48→20:54)
[2022-09-23] MEDS: L. ACIDOPHILUS/L.BULGARICUS 1 PACKET GRAN.PACK PO (08:48)
[2022-09-23] MEDS: PIPERACILLIN SODIUM/TAZOBACTAM 3.375 GM in 0.9 % SODIUM CHLORIDE 50 ML IV ×2 (10:33→17:47)
--- NOTE | 2022-09-23 10:33 | SWNOTE1 ---
SW met with pt to discuss dc needs. Pt lives at home with her , 1 story home, no HH coming in at this time. Pt wears 2 liters of home oxygen, she is back down to her baseline. Pt has no worries or concerns about discharge, SW to follow as needed.
[2022-09-23] MEDS: BUDESONIDE 0.5 MG/2 ML AMPULE NEB IH ×2 (11:34→23:31)
[2022-09-23] MEDS: LEVALBUTEROL HCL 0.63 MG/3 ML VIAL.NEB IH ×3 (11:35→23:31)
--- NOTE | 2022-09-23 15:07 | CM.NOTE ---
Inpatient Authorization uploaded to [facility] Ref ID# [id number]
[2022-09-23 15:49] LABS: Adenovirus NOT DETECTED (NOT DETECTE); Bordetella parapertussis NOT DETECTED (NOT DETECTE); Coronavirus 229E NOT DETECTED (NOT DETECTE); Coronavirus HKU1 NOT DETECTED (NOT DETECTE); Coronavirus NL63 NOT DETECTED (NOT DETECTE); Coronavirus OC43 NOT DETECTED (NOT DETECTE); Human Metapneumovirus NOT DETECTED (NOT DETECTE); Human Rhinovirus/Enterovirus NOT DETECTED (NOT DETECTE); Influenza A NOT DETECTED (NOT DETECTE); Influenza B NOT DETECTED (NOT DETECTE); Mycoplasma pneumoniae NOT DETECTED (NOT DETECTE); Parainfluenza Virus 1 NOT DETECTED (NOT DETECTE); Parainfluenza Virus 2 NOT DETECTED (NOT DETECTE); Parainfluenza Virus 3 NOT DETECTED (NOT DETECTE); Parainfluenza Virus 4 NOT DETECTED (NOT DETECTE); Respiratory Syncytial Virus NOT DETECTED (NOT DETECTE); SARS-CoV-2 NOT DETECTED (NOT DETECTE)
[2022-09-24] VITALS (25 sets, daily range): BP systolic 103–116; BP diastolic 61–67; PULSE 105–130; RESP 18–22; TEMP 36.4–36.7; O2SAT 93–98; BMI 17.0
[2022-09-24] MEDS: PIPERACILLIN SODIUM/TAZOBACTAM 3.375 GM in 0.9 % SODIUM CHLORIDE 50 ML IV ×3 (02:58→17:18)
[2022-09-24] MEDS: METHYLPREDNISOLONE SOD SUCC PF 125 MG/2 ML VIAL 60 MG IVP ×4 (02:58→20:32)
[2022-09-24] MEDS: LEVALBUTEROL HCL 0.63 MG/3 ML VIAL.NEB IH ×4 (04:17→22:08)
[2022-09-24 05:31] LABS: Basophils Percent Auto 0.1 % (0.2-2.0); Hematocrit 37.8 % (36.0-48.0); Hemoglobin 11.5 g/dL (12.0-16.0); Immature Granulocytes Abs Auto 0.02 10^3/uL (0.00-0.03); Immature Granulocytes Pct Auto 0.2 % (0.0-0.5); Lymphocytes Absolute Auto 0.4 10^3/uL (1.2-3.8); Lymphocytes Percent Auto 4.4 % (20.5-60.0); Mean Corpuscular HGB Conc 30.4 g/dL (29.9-35.2); Mean Corpuscular Hemoglobin 26.7 pg (26.7-34.0); Mean Corpuscular Volume 87.7 fL (81.0-99.0); Monocytes Absolute Auto 0.2 10^3/uL (0.3-0.8); Monocytes Percent Auto 2.3 % (1.7-12.0); Neutrophils Absolute Auto 9.3 10^3/uL (1.4-6.5); Platelet Count 212 10^3/uL (150-450); Red Blood Count 4.31 10^6/uL (4.20-5.40); Red Cell Distribution Width 15.1 % (11.0-15.0)
[2022-09-24 05:55] LABS: Magnesium 2.3 mg/dL (1.8-2.4)
[2022-09-24 06:02] LABS: Theophylline 2.2 ug/mL (10.0-20.0)
[2022-09-24] MEDS: CETIRIZINE HCL 10 MG TABLET PO (07:59)
[2022-09-24] MEDS: OMEPRAZOLE 20 MG CAPSULE.DR PO ×2 (07:59→20:33)
[2022-09-24] MEDS: THEOPHYLLINE 300 MG TAB.ER.12H PO (08:01)
--- NOTE | 2022-09-24 08:02 | P.PN_ITS ---
Progress Note: Subjective Subjective Interval history: Patient with significant dyspnea with any activity. Exam Constitutional Vital Signs - 24 hr 09/23/22 08:13 09/23/22 10:04 09/23/22 11:35 Temperature Pulse Rate 115 H 165 H 120 H Respiratory Rate Blood Pressure [Left Arm] Blood Pressure [Right Arm] Pulse Oximetry 93 L Oxygen Delivery Method Oxygen Delivery Flow Rate Fraction of Inspired Oxygen 09/23/22 11:46 09/23/22 12:05 09/23/22 13:21 Temperature 97.7 F Pulse Rate 134 H 120 H Respiratory Rate 20 Blood Pressure [Left Arm] 112/65 Blood Pressure [Right Arm] Pulse Oximetry 93 L 93 L Oxygen Delivery Method Nasal Cannula Nasal Cannula Oxygen Delivery Flow Rate 2 Fraction of Inspired Oxygen 09/23/22 14:02 09/23/22 11:50 09/23/22 16:00 Temperature Pulse Rate 132 H 120 H 122 H Respiratory Rate Blood Pressure [Left Arm] Blood Pressure [Right Arm] Pulse Oximetry Oxygen Delivery Method Oxygen Delivery Flow Rate Fraction of Inspired Oxygen 09/23/22 16:43 09/23/22 16:44 09/23/22 16:59 Temperature Pulse Rate 121 H 129 H Respiratory Rate Blood Pressure [Left Arm] Blood Pressure [Right Arm] Pulse Oximetry 94 L 94 L 94 L Oxygen Delivery Method Nasal Cannula Oxygen Delivery Flow Rate 2 Fraction of Inspired Oxygen 09/23/22 20:00 09/23/22 20:00 09/23/22 21:00 Temperature 97.7 F Pulse Rate 118 H 109 H Respiratory Rate 18 Blood Pressure [Left Arm] Blood Pressure [Right Arm] 115/70 Pulse Oximetry Oxygen Delivery Method Nasal Cannula Nasal Cannula Oxygen Delivery Flow Rate 2 Fraction of Inspired Oxygen 2 09/23/22 22:00 09/23/22 23:31 09/23/22 23:31 Temperature Pulse Rate 112 H 111 H Respiratory Rate 20 Blood Pressure [Left Arm] Blood Pressure [Right Arm] Pulse Oximetry 95 95 Oxygen Delivery Method Nasal Cannula Oxygen Delivery Flow Rate 2 Fraction of Inspired Oxygen 09/23/22 23:46 09/24/22 00:00 09/24/22 02:00 Temperature Pulse Rate 121 H 130 H 113 H Respiratory Rate 22 Blood Pressure [Left Arm] Blood Pressure [Right Arm] Pulse Oximetry 97 Oxygen Delivery Method Oxygen Delivery Flow Rate Fraction of Inspired Oxygen 09/24/22 03:50 09/24/22 04:17 09/24/22 04:34 Temperature Pulse Rate 106 H 111 H 110 H Respiratory Rate 20 22 Blood Pressure [Left Arm] Blood Pressure [Right Arm] Pulse Oximetry 95 98 Oxygen Delivery Method Nasal Cannula Oxygen Delivery Flow Rate 2 Fraction of Inspired Oxygen 09/24/22 04:18 09/24/22 04:34 09/24/22 05:46 Temperature Pulse Rate 111 H 110 H 118 H Respiratory Rate 20 22 Blood Pressure [Left Arm] Blood Pressure [Right Arm] Pulse Oximetry 95 98 Oxygen Delivery Method Nasal Cannula Oxygen Delivery Flow Rate 2 Fraction of Inspired Oxygen 09/24/22 05:50 09/24/22 07:08 Temperature 97.6 F Pulse Rate 119 H Respiratory Rate 18 Blood Pressure [Left Arm] 103/61 Blood Pressure [Right Arm] Pulse Oximetry 95 Oxygen Delivery Method Nasal Cannula Nasal Cannula Oxygen Delivery Flow Rate 2 2 Fraction of Inspired Oxygen HENMT Common normals: moist oral mucous membranes Chest Common normals: inspection of chest normal Respiratory Common normals: abnormal respiratory effort Effort & inspection: respiratory distress Auscultation: rhonchi, wheezes and diminished lung sounds Cardio Common normals: irregular rate Rate: tachycardic GI Common normals: Normal to inspection, nondistended, normoactive bowel sounds present Progress Note: Objective Labs Labs: Short CBC 09/24/22 Range/Units 04:30 WBC 10.0 (4.0-11.0) 10^3/uL Hgb 11.5 L (12.0-16.0) g/dL Hct 37.8 (36.0-48.0) % Plt Count 212 (150-450) 10^3/uL Progress Note: A&P Assessment and Plan (1) Acute exacerbation of chronic obstructive pulmonary disease: (2) Chronic obstructive pulmonary disease: (3) Acute bronchitis: (4) Acute and chronic respiratory failure with hypoxia: (5) Iron deficiency anemia: (6) Sinus tachycardia: Plan Sinus tachycardia, respiratory distress, acute hypoxic respiratory failure secondary to acute exacerbation of COPD, end-stage, secondary to acute bronchitis-sputum culture was turned in Physical so hopefully will have that result later today. Continue current steroids and antibiotics. Patient is improving. Better air exchange but still with significant wheeze and significant dyspnea with any activity sinus tachycardia - Check on echocardiogram Iron deficiency anemia-monitor daily, supplement
[2022-09-24] MEDS: AZITHROMYCIN 500 MG in 0.9 % SODIUM CHLORIDE 250 ML 250 MG IV (08:03)
--- NOTE | 2022-09-24 08:04 | CT_ITS ---
[address] [address] Patient Name: PHOEBE STANLEY MRN: [id number] date: 1960 Sex: F Assigned Patient Location: [place] Current Patient Location: [place] Accession/Order Number: [id number] Exam Date: 09/24/2022 09:35 Report Date: 09/24/2022 10:19 At the request of: ADITHYA KENYON Procedure: CT chest w con EXAMINATION: CT chest w con HISTORY: acute hypoxia ; history of lung cancer 2018 COMPARISON: CT chest 05/06/2022, 02/15/2022 TECHNIQUE: Multi-planar CT images were obtained without and/or with IV contrast as indicated by examination type. Axial, Coronal, and Sagittal images. Dose reduction techniques were achieved by using automated exposure control and/or adjustment of mA and/or kV according to patient size and/or use of iterative reconstruction technique. FINDINGS: LUNGS: Marked emphysematous changes bilaterally. Stable left perihilar consolidation, bronchiectasis, and geographic shaped area soft tissue density and fibrous extension to the posterior and lateral conner suspected to represent scarring. Small spiculated area within medial aspect of lingula. PLEURA: No mass, effusion, or pneumothorax. VASCULATURE: No abnormality. FREDDY: No mass or adenopathy. MEDIASTINUM: No mass or adenopathy. CARDIAC: No enlargement, pericardial thickening, or significant calcification. AORTA: No aneurysm or dissection. CHEST WALL: No mass or axillary adenopathy. BONES: No bone lesion or fracture. LIMITED ABDOMEN: No suspicious findings Limited images of the upper abdomen. OTHER: Negative. IMPRESSION: 1. Further decrease in size of a geographic shaped soft tissue opacity and marked stranding within left upper lobe, most compatible with scarring or posttreatment neoplasm. 2. No new findings or lymphadenopathy. 3. Marked emphysematous changes. Electronically authenticated by: LINDA TANG Date: 09/24/2022 10:19
[2022-09-24] MEDS: BUDESONIDE 0.5 MG/2 ML AMPULE NEB IH ×2 (10:48→22:09)
[2022-09-24] MEDS: NYSTATIN 500,000 UNIT/5 ML ORAL.SUSP 500000 UNIT PO ×3 (11:25→21:03)
--- NOTE | 2022-09-24 16:28 | CM.NOTE ---
Discussed with pt regarding Pulmonary Rehab. Pt talked with Braulio last admission but has not heard back. Message left for Braulio to reconnect with pt to make sure she can get signed up for outpt rehab.
[2022-09-24] MEDS: MONTELUKAST SODIUM 10 MG TABLET PO (20:33)
[2022-09-25] VITALS (12 sets, daily range): BP systolic 128; BP diastolic 74; PULSE 100–114; RESP 18–20; TEMP 36.5; O2SAT 88–98
[2022-09-25] MEDS: METHYLPREDNISOLONE SOD SUCC PF 125 MG/2 ML VIAL 60 MG IVP ×2 (01:03→08:26)
[2022-09-25] MEDS: PIPERACILLIN SODIUM/TAZOBACTAM 3.375 GM in 0.9 % SODIUM CHLORIDE 50 ML IV ×2 (01:06→10:03)
[2022-09-25] MEDS: LEVALBUTEROL HCL 0.63 MG/3 ML VIAL.NEB IH ×2 (04:34→11:09)
[2022-09-25] MEDS: NYSTATIN 500,000 UNIT/5 ML ORAL.SUSP 500000 UNIT PO ×2 (05:21→11:45)
[2022-09-25 05:41] LABS: Basophils Percent Auto 0.1 % (0.2-2.0); Hematocrit 37.7 % (36.0-48.0); Hemoglobin 11.5 g/dL (12.0-16.0); Lymphocytes Absolute Auto 0.5 10^3/uL (1.2-3.8); Lymphocytes Percent Auto 4.7 % (20.5-60.0); Mean Corpuscular HGB Conc 30.5 g/dL (29.9-35.2); Mean Corpuscular Hemoglobin 26.9 pg (26.7-34.0); Mean Corpuscular Volume 88.1 fL (81.0-99.0); Mean Platelet Volume 9.9 fL (9.5-13.5); Monocytes Absolute Auto 0.3 10^3/uL (0.3-0.8); Monocytes Percent Auto 2.6 % (1.7-12.0); Neutrophils Absolute Auto 9.6 10^3/uL (1.4-6.5); Neutrophils Percent Auto 91.6 % (43.0-75.0); Platelet Count 251 10^3/uL (150-450); Red Blood Count 4.28 10^6/uL (4.20-5.40); White Blood Count 10.5 10^3/uL (4.0-11.0)
[2022-09-25 05:49] LABS: Theophylline 2.8 ug/mL (10.0-20.0)
[2022-09-25 05:57] LABS: Magnesium 2.3 mg/dL (1.8-2.4)
--- NOTE | 2022-09-25 07:31 | P.DS_ITS ---
DS: Providers Provider Date of admission: 09/22/22 20:35 Primary care physician: Kaiden Bass MD DS: Diagnosis Discharge Diagnosis (1) Acute exacerbation of chronic obstructive pulmonary disease: (2) Chronic obstructive pulmonary disease: (3) Acute bronchitis: (4) Acute and chronic respiratory failure with hypoxia: (5) Iron deficiency anemia: (6) Sinus tachycardia: Plan Sinus tachycardia, respiratory distress, acute hypoxic respiratory failure secondary to acute exacerbation of COPD, end-stage, secondary to acute bronchitis due to moraxella cattharalis sinus tachycardia - stable Iron deficiency anemia DS: Summary Hospital Course Hospital Course: Patient was treated as an outpatient for increasing cough and shortness of breath, cefdinir, patient had increasing shortness of breath with decreasing oxygen, she required 4 L of supplemental oxygen while she was admitted, that improved from the hospital stay. Sputum culture done the day prior to admission showed Moraxella catarrhalis. In the hospital she was on Zithromax and Zosyn. She is improving with that regimen. We will send patient home with Augmentin. Sensitivities from the Moraxella are still pending. Overall patient is improved and back to her baseline supplemental oxygen of 2 L. She will follow-up with her rn obgyn. Only other issue is tachycardia, echocardiogram was unremarkable, EF and levels are low so I doubt that is causing her tachycardia, will maintain current medications as admitted plus the Augmentin, prednisone, nystatin, add Biotene, past follow-up with pulmonology and with me within the next week. Status at Discharge Functional status at discharge: independent ambulation Time Spent with Patient Time attestation: Total time spent providing and/or coordinating discharge services: Exam Constitutional Vital Signs - 24 hr 09/24/22 08:08 09/24/22 10:21 09/24/22 10:49 Temperature Pulse Rate 106 H 112 H 110 H Respiratory Rate 20 Blood Pressure [Left Arm] Blood Pressure [Right Arm] Pulse Oximetry 95 Oxygen Delivery Method Oxygen Delivery Flow Rate 09/24/22 10:56 09/24/22 11:14 09/24/22 11:54 Temperature Pulse Rate 110 H 118 H 126 H Respiratory Rate 22 Blood Pressure [Left Arm] Blood Pressure [Right Arm] Pulse Oximetry 95 Oxygen Delivery Method Nasal Cannula Oxygen Delivery Flow Rate 2 09/24/22 13:34 09/24/22 15:39 09/24/22 16:00 Temperature 98 F Pulse Rate 109 H 120 H 124 H Respiratory Rate 20 Blood Pressure [Left Arm] Blood Pressure [Right Arm] 116/67 Pulse Oximetry 93 L 95 Oxygen Delivery Method Nasal Cannula Oxygen Delivery Flow Rate 2 09/24/22 16:18 09/24/22 17:21 09/24/22 19:26 Temperature 98.1 F Pulse Rate 126 H 120 H 110 H Respiratory Rate 22 20 Blood Pressure [Left Arm] 110/62 Blood Pressure [Right Arm] Pulse Oximetry 96 Oxygen Delivery Method Nasal Cannula Oxygen Delivery Flow Rate 09/24/22 20:03 09/24/22 22:01 09/24/22 22:08 Temperature Pulse Rate 118 H 110 H 105 H Respiratory Rate 20 Blood Pressure [Left Arm] Blood Pressure [Right Arm] Pulse Oximetry 96 Oxygen Delivery Method Oxygen Delivery Flow Rate 09/24/22 22:13 09/24/22 22:13 09/24/22 22:15 Temperature Pulse Rate 105 H 116 H Respiratory Rate 20 Blood Pressure [Left Arm] Blood Pressure [Right Arm] Pulse Oximetry 96 96 Oxygen Delivery Method Nasal Cannula Nasal Cannula Oxygen Delivery Flow Rate 2 2 09/25/22 00:00 09/25/22 02:00 09/25/22 04:03 Temperature Pulse Rate 114 H 104 H 104 H Respiratory Rate Blood Pressure [Left Arm] Blood Pressure [Right Arm] Pulse Oximetry Oxygen Delivery Method Oxygen Delivery Flow Rate 09/25/22 04:34 09/25/22 04:38 09/25/22 04:45 Temperature Pulse Rate 111 H 111 H 100 H Respiratory Rate 18 Blood Pressure [Left Arm] Blood Pressure [Right Arm] Pulse Oximetry 98 Oxygen Delivery Method Nasal Cannula Oxygen Delivery Flow Rate 2 09/25/22 04:58 09/25/22 06:00 Temperature 97.7 F Pulse Rate 109 H 105 H Respiratory Rate 20 Blood Pressure [Left Arm] Blood Pressure [Right Arm] 128/74 H Pulse Oximetry 96 Oxygen Delivery Method Nasal Cannula Oxygen Delivery Flow Rate HENMT Common normals: moist oral mucous membranes Chest Common normals: inspection of chest normal Respiratory Common normals: normal respiratory effort Effort & inspection: symmetric chest movement; no respiratory distress Auscultation: clear to auscultation bilaterally and diminished lung sounds Cardio Rate: tachycardic DS: Data Data Completed and Pending Labs on day of discharge: Labs from last 24 hours 09/25/22 04:40 WBC 10.5 RBC 4.28 Hgb 11.5 L Hct 37.7 MCV 88.1 MCH 26.9 MCHC 30.5 RDW 15.0 Plt Count 251 MPV 9.9 Neut % (Auto) 91.6 H Lymph % (Auto) 4.7 L [place] % (Auto) 2.6 Eos % (Auto) 0.0 L Baso % (Auto) 0.1 L Neut # (Auto) 9.6 H Lymph # (Auto) 0.5 L [place] # (Auto) 0.3 Eos # (Auto) 0.0 Baso # (Auto) 0.0 Abs Immat Gran (auto) 0.10 H Imm/Tot Granulo (auto) 1.0 H Magnesium 2.3 Theophylline 2.8 L Preliminary micro results at discharge 09/22/22 18:13 Blood Culture Result 1 - Preliminary Blood NO GROWTH AT 36-48 HOURS. FINAL TO FOLLOW. 09/22/22 17:30 Blood Culture Result 1 - Preliminary Blood NO GROWTH AT 36-48 HOURS. FINAL TO FOLLOW. Discharge Plan Discharge Disposition: Home, Self-Care Condition: Good Discharge Medications: New nystatin 100,000 unit/mL Suspension 500,000 unit PO QID 14 Days Qty: 280 0RF fluticasone propionate 50 mcg/actuation [place],Suspension 2 spray intranasal QD Qty: 16 0RF prednisone 10 mg tablet 50 mg PO DAILY Qty: 47 0RF Rx Instructions: 5/day for 3 days. 4/day for 3 days, 3/day for 3 days, 2/day for 3 days, 1/day for 3 days, 1/2 /day for 4 days amoxicillin-pot clavulanate 875-125 mg tablet 1 tab PO BID Qty: 20 0RF amoxicillin 500 mg capsule 1,000 mg PO BID Qty: 40 0RF Biotene Dry Mouth Oral Rinse Mouthwash 15 ml mucous membrane BID PRN (Reason: dry mouth) Qty: 1000 11RF Rx Instructions: swish for 15-30 secs , then spit out; do not swallow theophylline 300 mg capsule,extended release 24hr 300 mg PO DAILY Qty: 30 11RF Continued albuterol sulfate [Ventolin HFA] 90 mcg/actuation HFA aerosol inhaler 2 puff INHALATION Q4H PRN (Reason: shortness of breath or wheezing) budesonide 0.5 mg/2 mL suspension for nebulization 1 mg inhalation Q12H Pulmicort Flexhaler 180 mcg/actuation aerosol powdr breath activated 2 inh INHALATION Q12H cetirizine 10 mg tablet 10 mg PO DAILY guaifenesin [Mucus Relief ER] 600 mg tablet extended release 12hr 600 mg PO Q12H PRN (Reason: congestion) ipratropium-albuterol 0.5 mg-3 mg(2.5 mg base)/3 mL solution for nebulization 3 ml INHALATION Q6H PRN (Reason: shortness of breath) montelukast 10 mg tablet 10 mg PO .hs Stiolto Respimat 2.5-2.5 mcg/actuation mist 2 puff INHALATION Q24H Discontinued theophylline 400 mg tablet extended release 24 hr 200 mg PO Q24H Forms: Portal Instructions
[2022-09-25] MEDS: 0.9 % SODIUM CHLORIDE 250 ML 100 ML IV (08:26)
[2022-09-25] MEDS: THEOPHYLLINE 300 MG TAB.ER.12H PO (08:27)
[2022-09-25] MEDS: OMEPRAZOLE 20 MG CAPSULE.DR PO (08:27)
[2022-09-25] MEDS: AZITHROMYCIN 500 MG in 0.9 % SODIUM CHLORIDE 250 ML 250 MG IV (08:27)
[2022-09-25] MEDS: L. ACIDOPHILUS/L.BULGARICUS 1 PACKET GRAN.PACK PO (08:27)
[2022-09-25] MEDS: CETIRIZINE HCL 10 MG TABLET PO (08:27)
[2022-09-25] MEDS: BUDESONIDE 0.5 MG/2 ML AMPULE NEB IH (11:08)
[2022-09-25] MEDS: IPRATROPIUM BROMIDE 0.5 MG/2.5 ML VIAL.NEB IH (12:53)
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
== END 2022-09-25 13:15 | disposition home or self-care (01) | DRG 140 ==
LOC: ER 19:56 → MS 22:01
PROVIDERS: Physician Assistant; Admitting Provider Internal Medicine; Emergency Provider Emergency Medicine; PCP Family Medicine; Visit Provider Family Medicine
DX: J44.1 Chronic obstructive pulmonary disease with (acute) exacerbation (principal); J44.0 Chronic obstructive pulmonary disease with (acute) lower respiratory infection; J20.8 Acute bronchitis due to other specified organisms; J96.21 Acute and chronic respiratory failure with hypoxia; D50.9 Iron deficiency anemia, unspecified; R00.0 Tachycardia, unspecified; B96.89 Other specified bacterial agents as the cause of diseases classified elsewhere; Z20.822 Contact with and (suspected) exposure to COVID-19; Z87.891 Personal history of nicotine dependence; Z79.899 Other long term (current) drug therapy; Z88.1 Allergy status to other antibiotic agents; Z99.81 Dependence on supplemental oxygen; Z82.5 Family history of asthma and other chronic lower respiratory diseases; Z82.49 Family history of ischemic heart disease and other diseases of the circulatory system
CPT/HCPCS: 0202U; 36415; 71045; 71260; 80053; 80198; 82800; 83735; 83880; 84443; 84484; 85025; 87040; 87070; 87106; 87150; 87186; 87205; 93005; 93306; 94640; 94667; 94668; 94761; 96365; 96366; 96367; 96368; 96375; 96376; 99285; J0456; J2930; Q3014; Q9967

== ENCOUNTER 2022-10-30 12:01 | Outpatient (OUT) | payer OTHER, SELFPAY ==
--- NOTE | 2022-10-30 12:24 | US_ITS ---
[place] [id number] Patient Name: PHOEBE STANLEY MRN: [id number] date: 1960 Sex: F Assigned Patient Location: [facility] Current Patient Location: [facility] Accession/Order Number: [id number] Exam Date: 10/30/2022 12:32 Report Date: 10/30/2022 17:05 At the request of: ADITHYA KENYON Procedure: US venous doppler UE LT EXAMINATION: US venous doppler UE LT HISTORY: LEFT ARM PAIN M79.602 COMPARISON: No relevant comparison available. TECHNIQUE: Grayscale, color and Doppler ultrasound FINDINGS: Region: Left arm Thrombus: None Flow: Normal Augmentation: Normal Compressibility: Normal Poor visualization of the cephalic vein US/US venous doppler UE LT IMPRESSION: No deep or superficial vein thrombus identified in the left arm *Exam performed in accordance with [facility] practice guidelines- Peripheral venous ultrasound, July 07, 2009. Electronically authenticated by: JULES RAMIREZ Date: 10/30/2022 17:05
--- NOTE | 2022-10-30 13:38 | XR_ITS ---
The [address] [address] Patient Name: PHOEBE STANLEY MRN: [id number] date: 1960 Sex: F Assigned Patient Location: [facility] Current Patient Location: [facility] Accession/Order Number: [id number] Exam Date: 10/30/2022 13:53 Report Date: 10/30/2022 17:25 At the request of: ADITHYA KENYON Procedure: XR forearm LT 2V PROCEDURE: XR forearm LT 2V, XR wrist LT min 3V COMPARISON: None. HISTORY: Left Arm Pain FINDINGS: BONES:No acute fracture or dislocation. Degenerative changes most significant at the first carpometacarpal joint with [id number]-[id number] articulation. SOFT TISSUES:Negative. No visible soft tissue swelling. EFFUSION:None visible. OTHER: Negative. XR/XR forearm LT 2V IMPRESSION: No acute abnormality of the wrist or forearm Electronically authenticated by: JULES RAMIREZ Date: 10/30/2022 17:25
--- NOTE | 2022-10-30 13:38 | XR_ITS ---
The [address] [address] Patient Name: PHOEBE STANLEY MRN: [id number] date: 1960 Sex: F Assigned Patient Location: [facility] Current Patient Location: [facility] Accession/Order Number: [id number] Exam Date: 10/30/2022 13:53 Report Date: 10/30/2022 17:25 At the request of: ADITHYA KENYON Procedure: XR wrist LT min 3V PROCEDURE: XR forearm LT 2V, XR wrist LT min 3V COMPARISON: None. HISTORY: Left Arm Pain FINDINGS: BONES:No acute fracture or dislocation. Degenerative changes most significant at the first carpometacarpal joint with zzsk-em-itfk articulation. SOFT TISSUES:Negative. No visible soft tissue swelling. EFFUSION:None visible. OTHER: Negative. XR/XR wrist LT min 3V IMPRESSION: No acute abnormality of the wrist or forearm Electronically authenticated by: JULES RAMIREZ Date: 10/30/2022 17:25
== END 2022-10-30 12:02 | disposition home or self-care (01) ==
LOC: RAD 12:10
PROVIDERS: PCP Family Medicine; Visit Provider Family Medicine
DX: M79.602 Pain in left arm (principal)
CPT/HCPCS: 73090; 73110; 93971

== ENCOUNTER 2023-02-07 04:22 | Inpatient (IN) | payer OTHER, SELFPAY ==
[2023-02-07] VITALS (27 sets, daily range): BP systolic 109–150; BP diastolic 62–94; PULSE 88–146; RESP 18–36; TEMP 36.5–37.2; O2SAT 83–93; BMI 15.4; BMI 16.7
--- NOTE | 2023-02-07 04:32 | ED_ITS ---
HPI - SOB/Dyspnea General Chief Complaint: Shortness of Breath/Dyspnea Stated Complaint: COPD Time Seen by Provider: 02/07/23 04:32 Source: patient Mode of arrival: Wheelchair History of Present Illness HPI Narrative: history of 02 dependent COPD. States she has been ill for the past week. placed on prednisone and antibiotics by her PCP. No fever but remains short of breath. Pulse ox on 2L NC is 86% which she states is normal for her. Denies chest pain or nausea. MD elicited complaint: shortness of breath Related Data Home Medications Medication Instructions Recorded Confirmed albuterol sulfate 90 mcg/actuation 2 puff inhalation Q4H PRN 09/22/22 10/09/22 aerosol inhaler (Ventolin HFA) shortness of breath or wheezing budesonide 0.5 mg/2 mL suspension 1 mg inhalation Q12H 09/22/22 10/09/22 for nebulization budesonide 180 mcg/actuation 2 inh inhalation Q12H 09/22/22 10/09/22 breath activated powder inhaler (Pulmicort Flexhaler) cetirizine 10 mg tablet 10 mg PO DAILY 09/22/22 10/09/22 ipratropium 0.5 mg-albuterol 3 mg 3 ml inhalation Q6H PRN shortness 09/22/22 10/09/22 (2.5 mg base)/3 mL nebulization of breath soln montelukast 10 mg tablet 10 mg PO .hs 09/22/22 10/09/22 tiotropium 2.5 mcg-olodaterol 2.5 2 puff inhalation Q24H 09/22/22 10/09/22 mcg/actuation mist for inhalation (Stiolto Respimat) Previous Rx's Medication Instructions Recorded fluticasone propionate 50 2 spray intranasal QD #16 grams 09/25/22 mcg/actuation nasal spray,suspension saliva substitute combo no.9 15 ml mucous membrane BID PRN dry 09/25/22 (Biotene Dry Mouth Oral Rinse mouth #1,000 mL mouthwash) theophylline 300 mg 300 mg PO DAILY #30 caps 09/25/22 capsule,extended release 24 hr Allergies Allergy/AdvReac Type Severity Reaction Status Date / Time levofloxacin [From Levaquin] Allergy Intermediate Verified 09/22/22 17:02 Review of Systems ROS Status of ROS 10 or more systems reviewed and unremarkable except as noted in history and below [facility] Medical History (Updated 02/07/23 @ 06:29 by Renard Pavon MD) Acute and chronic respiratory failure with hypoxia ?J96.21 - Acute and chronic respiratory failure with hypoxia (ICD-10) Acute bronchitis ?J20.9 - Acute bronchitis, unspecified (ICD-10) Acute exacerbation of chronic obstructive pulmonary disease ?J44.1 - Chronic obstructive pulmonary disease with (acute) exacerbation (ICD-10) Chronic obstructive pulmonary disease ?J44.9 - Chronic obstructive pulmonary disease, unspecified (ICD-10) Family History (Updated 09/22/22 @ 21:17 by Veronika Almeida) Other Family history of myocardial infarction Social History (Updated 09/22/22 @ 21:18 by Veronika Almeida) Within the past year, how often did you have a drink containing alcohol: never Score interpretation: A score less than 3 is consistent with normal alcohol consumption. Smoking status: Former smoker Non-prescribed substance use: denies use Previous occupational history: disabled Highest level of school completed/degree received: GED or equivalent Are you now , , , , never or living with a partner: In a typical week, how many times do you talk on the telephone with family, friends, or neighbors: 3 or more times per week How often do you get together with friends or relatives: 3 or more times per week How often do you attend religious or confucianism services: 1-3 times per year Do you belong to any clubs or organizations such as religious groups unions, fraternal or athletic groups, or school groups: no Total score: 2 Score interpretation: A score of greater than or equal to 2 indicates the lowest level of social isolation. Little interest or pleasure in doing things: not at all Feeling down, depressed, or hopeless: not at all Feel stressed/tense/nervous/anxious/difficulty sleeping: not at all Do you think of yourself as: straight/heterosexual Gender Identity: female Exam Constitutional Vital Signs, click to edit/add: Last Vital Signs Temp 99.0 F 02/07/23 04:27 Pulse 137 H 02/07/23 06:00 Resp 27 H 02/07/23 06:00 BP 109/62 02/07/23 06:00 Pulse Ox 90 L 02/07/23 06:00 O2 Del Method Nasal Cannula 02/07/23 05:07 O2 Flow Rate 2 02/07/23 05:07 Common normals: oriented x3 General appearance: in distress HENMT Common normals: normocephalic and head/scalp atraumatic Respiratory Other: diminished air movement. Faint end exp wheeze Cardio Common normals: S1 normal heart sound and S2 normal heart sound Rate: tachycardic GI Common normals: Normal to inspection, nondistended, normoactive bowel sounds present and soft to palpation Extremity Common normals: normal to inspection and full ROM Neuro Common normals: oriented x3, CN's II-XII intact bilaterally, moves all extremities and no focal motor deficits Psych Appearance: grossly normal Course Vital Signs Vital signs: Vital Signs Temperature 99.0 F 02/07/23 04:27 Pulse Rate 146 H 02/07/23 04:27 Respiratory Rate 20 02/07/23 04:27 Blood Pressure 150/94 H 02/07/23 04:27 Pulse Oximetry 83 L 02/07/23 04:27 Oxygen Delivery Method Nasal Cannula 02/07/23 04:27 Oxygen Delivery Flow Rate 2 02/07/23 04:27 Temperature 99.0 F 02/07/23 04:27 Pulse Rate 137 H 02/07/23 06:00 Respiratory Rate 27 H 02/07/23 06:00 Blood Pressure 109/62 02/07/23 06:00 Pulse Oximetry 90 L 02/07/23 06:00 Oxygen Delivery Method Nasal Cannula 02/07/23 05:07 Oxygen Delivery Flow Rate 2 02/07/23 05:07 MDM - SOB/Dyspnea MDM Narrative Medical decision making narrative: patient presents short of breath despite aggressive out patient treatment by Dr Bass with prednisone and antibiotics. Her pulse ox was down to 83% on 2LNC. She was treated with solumedrol and duoneb in the department. She is now resting more comfortably. pulse ox is 91% on 2 L NC. her cxray demonstrate new infiltrate RLL. Discussed with Dr Bass who has accepted her for admission and will decide on what antibiotics to give her once he sees her and review what she has been treated with successfully in the past Lab Data Labs: Lab Results 02/07/23 Range/Units 04:35 WBC 12.7 H (4.0-11.0) 10^3/uL RBC 4.47 (4.20-5.40) 10^6/uL Hgb 12.8 (12.0-16.0) g/dL Hct 40.0 (36.0-48.0) % MCV 89.5 (81.0-99.0) fL MCH 28.6 (26.7-34.0) pg MCHC 32.0 (29.9-35.2) g/dL RDW 12.8 (11.0-15.0) % Plt Count 322 (150-450) 10^3/uL MPV 9.5 (9.5-13.5) fL Neut % (Auto) 76.8 H (43.0-75.0) % Lymph % (Auto) 12.9 L (20.5-60.0) % [place] % (Auto) 9.6 (1.7-12.0) % Eos % (Auto) 0.1 L (0.9-7.0) % Baso % (Auto) 0.2 (0.2-2.0) % Neut # (Auto) 9.7 H (1.4-6.5) 10^3/uL Lymph # (Auto) 1.6 (1.2-3.8) 10^3/uL [place] # (Auto) 1.2 H (0.3-0.8) 10^3/uL Eos # (Auto) 0.0 (0.0-0.7) 10^3/uL Baso # (Auto) 0.0 (0.0-0.1) 10^3/uL Abs Immat Gran (auto) 0.05 H (0.00-0.03) 10^3/uL Imm/Tot Granulo (auto) 0.4 (0.0-0.5) % Sodium 136 (136-145) mmol/L Potassium 3.5 (3.5-5.1) mmol/L Chloride 97 L (98-107) mmol/L Carbon Dioxide 38.3 H (21.0-32.0) mmol/L Anion Gap 4.2 BUN 11.0 (7.0-18.0) mg/dL Creatinine 0.67 (0.55-1.02) mg/dL Est GFR ( Amer) >60 (>=60) Est GFR (Non-Af Amer) >60 (>=60) BUN/Creatinine Ratio 16.4 Glucose 112 H (74-106) mg/dL Calcium 9.3 (8.5-10.1) mg/dL Troponin I High Sens 6.5 (4.0-51.3) pg/mL Imaging Data Chest x-ray: Radiologist's impression: Patient Name: PHOEBE STANLEY MRN: [id number] date: 1960 Sex: F Assigned Patient Location: ER Current Patient Location: ER Accession/Order Number: [id number] Exam Date: 02/07/2023 04:45 Report Date: 02/07/2023 05:28 At the request of: RENARD PAVON Procedure: XR chest 1V EXAM: XR chest 1V HISTORY: short of breath COMPARISON: Chest x-ray 09/22/2022 TECHNIQUE: Single frontal view chest x-ray FINDINGS: Newly developing mild right lower lung. Hyperinflated bilateral lungs with flattening of the diaphragms. Small right pleural effusion versus pleural scar. Irregular nodular opacity at the left upper . No pneumothorax or acute bony abnormality. Cardiac size is unremarkable. XR/XR chest 1V IMPRESSION: Newly developing mild right lower lung opacities are suspicious for pneumonitis. Correlate clinically. Extensive bilateral COPD. Irregular nodular opacity at the left upper lobe reflecting an area of nodular scar, similar to prior exam. Electronically authenticated by: OLGA RAPP Date: 02/07/2023 05:28 Discharge Plan Discharge Chief Complaint: Shortness of Breath/Dyspnea Clinical Impression: Acute infective exacerbation of chronic obstructive airway disease, Community acquired pneumonia Prescriptions / Home Meds: No Action albuterol sulfate [Ventolin HFA] 90 mcg/actuation HFA aerosol inhaler 2 puff INHALATION Q4H PRN (Reason: shortness of breath or wheezing) budesonide 0.5 mg/2 mL suspension for nebulization 1 mg inhalation Q12H Pulmicort Flexhaler 180 mcg/actuation aerosol powdr breath activated 2 inh INHALATION Q12H cetirizine 10 mg tablet 10 mg PO DAILY ipratropium-albuterol 0.5 mg-3 mg(2.5 mg base)/3 mL solution for nebulization 3 ml INHALATION Q6H PRN (Reason: shortness of breath) montelukast 10 mg tablet 10 mg PO .hs Stiolto Respimat 2.5-2.5 mcg/actuation mist 2 puff INHALATION Q24H fluticasone propionate 50 mcg/actuation [place],Suspension 2 spray intranasal QD Qty: 16 0RF Biotene Dry Mouth Oral Rinse Mouthwash 15 ml mucous membrane BID PRN (Reason: dry mouth) Qty: 1000 11RF Rx Instructions: swish for 15-30 secs , then spit out; do not swallow theophylline 300 mg capsule,extended release 24hr 300 mg PO DAILY Qty: 30 11RF Referrals: Kaiden Bass MD [Primary Care Provider] - 1 week
--- NOTE | 2023-02-07 04:35 | ECG_ITS ---
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
--- NOTE | 2023-02-07 04:35 | XR_ITS ---
The [address] [address] Patient Name: PHOEBE STANLEY MRN: [id number] date: 1960 Sex: F Assigned Patient Location: ER Current Patient Location: ER Accession/Order Number: [id number] Exam Date: 02/07/2023 04:45 Report Date: 02/07/2023 05:28 At the request of: CAROL SCRUGGS Procedure: XR chest 1V EXAM: XR chest 1V HISTORY: short of breath COMPARISON: Chest x-ray 09/22/2022 TECHNIQUE: Single frontal view chest x-ray FINDINGS: Newly developing mild right lower lung. Hyperinflated bilateral lungs with flattening of the diaphragms. Small right pleural effusion versus pleural scar. Irregular nodular opacity at the left upper . No pneumothorax or acute bony abnormality. Cardiac size is unremarkable. XR/XR chest 1V IMPRESSION: Newly developing mild right lower lung opacities are suspicious for pneumonitis. Correlate clinically. Extensive bilateral COPD. Irregular nodular opacity at the left upper lobe reflecting an area of nodular scar, similar to prior exam. Electronically authenticated by: OLGA RAPP Date: 02/07/2023 05:28
--- NOTE | 2023-02-07 04:42 | PC.NURSE ---
Pt presents to ER for COPD exacerbation Pt wears constant O2 at 2L via nasal canula at home Pt states she has been sick for about a week with a lot of junk in her lungs Pt states she has been on an antibiotic and a steroid as well as taking mucinex Pt refuses us to raise her O2 level though Dr. Pavon advised as she had a bad experience in the past on higher oxygen levels Pt is hooked to ER O2 at 2L, placed on the heart monitor, an IV established, and bloodwork obtained Pt did a DuoNeb treatment at home at 0300, per Dr. Leon orders another is to be administered at 0500 Pt denies further needs or questsions at this time Pt is seated in bed in high fowlers position, Will continue to monitor pt closely
[2023-02-07] MEDS: METHYLPREDNISOLONE SOD SUCC PF 125 MG/2 ML VIAL IVP ×4 (05:04→23:11)
[2023-02-07] MEDS: IPRATROPIUM/ALBUTEROL SULFATE 3 ML AMPUL.NEB IH ×4 (05:07→22:45)
[2023-02-07 05:12] LABS: Basophils Percent Auto 0.2 % (0.2-2.0); Eosinophils Percent Auto 0.1 % (0.9-7.0); Hemoglobin 12.8 g/dL (12.0-16.0); Immature Granulocytes Abs Auto 0.05 10^3/uL (0.00-0.03); Immature Granulocytes Pct Auto 0.4 % (0.0-0.5); Lymphocytes Absolute Auto 1.6 10^3/uL (1.2-3.8); Lymphocytes Percent Auto 12.9 % (20.5-60.0); Mean Corpuscular Hemoglobin 28.6 pg (26.7-34.0); Mean Corpuscular Volume 89.5 fL (81.0-99.0); Mean Platelet Volume 9.5 fL (9.5-13.5); Monocytes Absolute Auto 1.2 10^3/uL (0.3-0.8); Monocytes Percent Auto 9.6 % (1.7-12.0); Neutrophils Absolute Auto 9.7 10^3/uL (1.4-6.5); Neutrophils Percent Auto 76.8 % (43.0-75.0); Platelet Count 322 10^3/uL (150-450); Red Blood Count 4.47 10^6/uL (4.20-5.40); Red Cell Distribution Width 12.8 % (11.0-15.0); White Blood Count 12.7 10^3/uL (4.0-11.0)
[2023-02-07 05:35] LABS: Anion Gap 4.2; BUN Creatinine Ratio 16.4; Calcium 9.3 mg/dL (8.5-10.1); Carbon Dioxide 38.3 mmol/L (21.0-32.0); Chloride 97 mmol/L (98-107); Estimated GFR (African America >60 (>=60); Estimated GFR (Non-African Ame >60 (>=60); Glucose 112 mg/dL (74-106); Potassium 3.5 mmol/L (3.5-5.1); Sodium 136 mmol/L (136-145); Troponin I High Sensitivity 6.5 pg/mL (4.0-51.3)
[2023-02-07 09:27] LABS: Adenovirus NOT DETECTED (NOT DETECTE); Bordetella parapertussis NOT DETECTED (NOT DETECTE); Coronavirus 229E NOT DETECTED (NOT DETECTE); Coronavirus HKU1 NOT DETECTED (NOT DETECTE); Coronavirus NL63 NOT DETECTED (NOT DETECTE); Coronavirus OC43 NOT DETECTED (NOT DETECTE); Human Metapneumovirus NOT DETECTED (NOT DETECTE); Influenza A NOT DETECTED (NOT DETECTE); Influenza B NOT DETECTED (NOT DETECTE); Mycoplasma pneumoniae NOT DETECTED (NOT DETECTE); Parainfluenza Virus 1 NOT DETECTED (NOT DETECTE); Parainfluenza Virus 2 NOT DETECTED (NOT DETECTE); Parainfluenza Virus 3 NOT DETECTED (NOT DETECTE); Parainfluenza Virus 4 NOT DETECTED (NOT DETECTE); Respiratory Syncytial Virus NOT DETECTED (NOT DETECTE); SARS-CoV-2 NOT DETECTED (NOT DETECTE)
[2023-02-07 09:32] LABS: Lactate/Lactic Acid 0.9 mmol/L (0.4-2.0)
[2023-02-07] MEDS: BUDESONIDE 0.5 MG/2 ML AMPULE NEB IH ×2 (10:18→22:45)
[2023-02-07 10:48] LABS: PO2 ABG 65.6 mmHg (80.0-100.0); pH ABG 7.446 (7.350-7.450)
[2023-02-07 10:49] LABS: Allen Test POSITIVE (POSITIVE); Oxygen Saturation ABG 94.2 %
[2023-02-07 10:57] LABS: Human Rhinovirus/Enterovirus DETECTED (NOT DETECTE)
[2023-02-07] MEDS: AZITHROMYCIN 500 MG in 0.9 % SODIUM CHLORIDE 250 ML 250 MG IV (11:18)
[2023-02-07] MEDS: OMEPRAZOLE 40 MG CAPSULE.DR PO ×2 (11:56→20:21)
[2023-02-07] MEDS: L. ACIDOPHILUS/L.BULGARICUS 1 PACKET GRAN.PACK PO ×2 (11:56→20:22)
--- NOTE | 2023-02-07 12:20 | P.HP_ITS ---
H&P: HPI History of Present Illness Chief complaint: SHORTNESS OF BREATH Narrative: Patient well-known to this practitioner secondary to long-term outpatient care. Over the last week we have tried 2 different antibiotics as well as oral prednisone. Patient has not been improving and presented to the emergency room and found to have acute hypoxia. She has baseline supplemental oxygen at 2 L. Sats in the 80s in the 2 L. After breathing treatments in the emergency room that did improve. Patient mated for work-up and treatment of failed outpatient treatment for right lower lobe pneumonia and acute exacerbation of COPD oxygen dependent Review of Systems ROS Status of ROS 10 or more systems reviewed and unremarkable except as noted in history and below Constitutional Denies: fever or chills [facility] Medical History (Updated 02/07/23 @ 06:29 by Renard Pavon MD) Acute and chronic respiratory failure with hypoxia ?J96.21 - Acute and chronic respiratory failure with hypoxia (ICD-10) Acute bronchitis ?J20.9 - Acute bronchitis, unspecified (ICD-10) Acute exacerbation of chronic obstructive pulmonary disease ?J44.1 - Chronic obstructive pulmonary disease with (acute) exacerbation (ICD-10) Chronic obstructive pulmonary disease ?J44.9 - Chronic obstructive pulmonary disease, unspecified (ICD-10) Family History (Updated 09/22/22 @ 21:17 by Veronika Almeida) Other Family history of myocardial infarction Social History (Updated 09/22/22 @ 21:18 by Veronika Almeida) Within the past year, how often did you have a drink containing alcohol: never Score interpretation: A score less than 3 is consistent with normal alcohol consumption. Smoking status: Former smoker Non-prescribed substance use: denies use Previous occupational history: disabled Highest level of school completed/degree received: GED or equivalent Are you now , , , , never or living with a partner: In a typical week, how many times do you talk on the telephone with family, friends, or neighbors: 3 or more times per week How often do you get together with friends or relatives: 3 or more times per week How often do you attend restorationist or mosque services: 1-3 times per year Do you belong to any clubs or organizations such as restorationist groups unions, fraternal or athletic groups, or school groups: no Total score: 2 Score interpretation: A score of greater than or equal to 2 indicates the lowest level of social isolation. Little interest or pleasure in doing things: not at all Feeling down, depressed, or hopeless: not at all Feel stressed/tense/nervous/anxious/difficulty sleeping: not at all Do you think of yourself as: straight/heterosexual Gender Identity: female Meds Home Medications and Allergies Home Medications Medication Instructions Recorded Confirmed Type albuterol sulfate 90 mcg/actuation 2 puff inhalation Q4H PRN 09/22/22 02/07/23 History aerosol inhaler (Ventolin HFA) shortness of breath or wheezing budesonide 0.5 mg/2 mL suspension 0.5 mg inhalation Q12H PRN 09/22/22 02/07/23 History for nebulization shortness of breath or wheezing cetirizine 10 mg tablet 10 mg PO DAILY PRN allergy symptoms 09/22/22 02/07/23 History ipratropium 0.5 mg-albuterol 3 mg 3 ml inhalation Q6H PRN shortness 09/22/22 02/07/23 History (2.5 mg base)/3 mL nebulization of breath soln montelukast 10 mg tablet 10 mg PO .hs 09/22/22 02/07/23 History tiotropium 2.5 mcg-olodaterol 2.5 2 puff inhalation Q24H 09/22/22 02/07/23 History mcg/actuation mist for inhalation (Stiolto Respimat) fluticasone propionate 50 2 spray intranasal QD #16 grams 09/25/22 02/07/23 Rx mcg/actuation nasal spray,suspension saliva substitute combo no.9 15 ml mucous membrane BID PRN dry 09/25/22 02/07/23 Rx (Biotene Dry Mouth Oral Rinse mouth #1,000 mL mouthwash) albuterol sulfate 90 mcg/actuation 2 inh inhalation QID PRN SOB 02/07/23 02/07/23 History aerosol inhaler (ProAir HFA) cefdinir 300 mg capsule 600 mg PO DAILY 02/07/23 02/07/23 History nystatin 100,000 unit/mL oral 5 ml PO QID PRN thrush 02/07/23 02/07/23 History suspension prednisone 10 mg tablet 10 mg PO QDAY 02/07/23 02/07/23 History sodium chloride 3 % for 4 ml inhalation Q8H PRN SOB 02/07/23 02/07/23 History nebulization (NebuSal) theophylline 400 mg 400 mg PO DAILY 02/07/23 02/07/23 History tablet,extended release 24 hr Allergies Allergy/AdvReac Type Severity Reaction Status Date / Time levofloxacin [From Levaquin] Allergy Intermediate Verified 09/22/22 17:02 Exam Constitutional Vital Signs, click to edit/add: Last Vital Signs Temp 97.8 F 02/07/23 08:31 Pulse 114 H 02/07/23 10:19 Resp 20 02/07/23 08:31 BP 134/75 02/07/23 08:31 Pulse Ox 92 L 02/07/23 10:19 O2 Del Method Nasal Cannula 02/07/23 10:19 O2 Flow Rate 2 02/07/23 10:19 HENMT Common normals: moist oral mucous membranes Chest Common normals: inspection of chest normal Respiratory Common normals: abnormal respiratory effort Effort & inspection: respiratory distress Auscultation: rhonchi, wheezes and diminished lung sounds Cardio Common normals: irregular rate Rate: tachycardic GI Common normals: Normal to inspection, nondistended, normoactive bowel sounds present Results Labs Labs: Short CBC 02/07/23 Range/Units 04:35 WBC 12.7 H (4.0-11.0) 10^3/uL Hgb 12.8 (12.0-16.0) g/dL Hct 40.0 (36.0-48.0) % Plt Count 322 (150-450) 10^3/uL BMP 02/07/23 04:35 Sodium 136 Potassium 3.5 Chloride 97 L Carbon Dioxide 38.3 H BUN 11.0 Creatinine 0.67 Glucose 112 H Calcium 9.3 ABG ABG results: 02/07/23 10:38 ABG pH 7.446 ABG pCO2 58.0 H* ABG pO2 65.6 L ABG HCO3 40.00 H ABG O2 Saturation 94.2 ABG Base Excess 15.90 H Assessment and Plan Assessment and Plan (1) Acute infective exacerbation of chronic obstructive airway disease: (2) Community acquired pneumonia: (3) Iron deficiency anemia: (4) Acute and chronic respiratory failure with hypoxia: (5) Acute bronchitis: (6) Sinus tachycardia: Plan Sinus tachycardia, respiratory distress, acute hypoxic respiratory failure secondary to acute exacerbation of COPD oxygen dependant due to RLL pneumonia, with metabolic alkalosis and respiratory acidosis on ABG sputum culture was turned in yesterday, will check on results of that later today and tomorrow. Try to obtain another sample if possible, changed to IV antibiotics, IV steroid s, already failed oral agents as an outpatient - 2 - 3 day hospital stay - maintain in-pt status, check on the alpha levels sinus tachycardia -continue to monitor Iron deficiency anemia-monitor daily, supplement
[2023-02-07] MEDS: PIPERACILLIN SODIUM/TAZOBACTAM 3.375 GM in 0.9 % SODIUM CHLORIDE 50 ML IV ×2 (13:38→20:22)
[2023-02-07] MEDS: BENZONATATE 100 MG CAPSULE 200 MG PO ×2 (13:39→20:22)
[2023-02-07] MEDS: NYSTATIN 500,000 UNIT/5 ML ORAL.SUSP 500000 UNIT PO ×3 (13:40→20:22)
[2023-02-07] MEDS: SODIUM CHLORIDE 0.9% INHALATION 3 ML NEB 6 ML IH ×2 (17:12→22:45)
[2023-02-07] MEDS: MONTELUKAST SODIUM 10 MG TABLET PO (20:27)
[2023-02-08] VITALS (8 sets, daily range): BP systolic 108–121; BP diastolic 69–70; PULSE 86–126; RESP 18–22; TEMP 36.4–36.5; O2SAT 90–93
[2023-02-08] MEDS: PIPERACILLIN SODIUM/TAZOBACTAM 3.375 GM in 0.9 % SODIUM CHLORIDE 50 ML IV ×3 (03:01→21:11)
[2023-02-08] MEDS: METHYLPREDNISOLONE SOD SUCC PF 125 MG/2 ML VIAL IVP ×3 (05:04→18:13)
[2023-02-08] MEDS: BENZONATATE 100 MG CAPSULE 200 MG PO ×3 (05:04→22:30)
[2023-02-08] MEDS: NYSTATIN 500,000 UNIT/5 ML ORAL.SUSP 500000 UNIT PO ×4 (05:05→22:36)
[2023-02-08] MEDS: SODIUM CHLORIDE 0.9% INHALATION 3 ML NEB 6 ML IH ×3 (05:13→22:29)
[2023-02-08] MEDS: IPRATROPIUM/ALBUTEROL SULFATE 3 ML AMPUL.NEB IH ×4 (05:13→22:29)
[2023-02-08 06:01] LABS: Hematocrit 38.8 % (36.0-48.0); Hemoglobin 12.1 g/dL (12.0-16.0); Mean Corpuscular HGB Conc 31.2 g/dL (29.9-35.2); Mean Corpuscular Hemoglobin 28.3 pg (26.7-34.0); Mean Corpuscular Volume 90.7 fL (81.0-99.0); Mean Platelet Volume 9.5 fL (9.5-13.5); Platelet Count 297 10^3/uL (150-450); Red Blood Count 4.28 10^6/uL (4.20-5.40); Red Cell Distribution Width 13.1 % (11.0-15.0); White Blood Count 26.3 10^3/uL (4.0-11.0)
[2023-02-08 06:25] LABS: BUN Creatinine Ratio 21.3; Calcium 9.3 mg/dL (8.5-10.1); Carbon Dioxide 36.7 mmol/L (21.0-32.0); Chloride 99 mmol/L (98-107); Estimated GFR (African America >60 (>=60); Estimated GFR (Non-African Ame >60 (>=60); Glucose 149 mg/dL (74-106); Potassium 3.7 mmol/L (3.5-5.1); Sodium 140 mmol/L (136-145)
[2023-02-08 07:44] LABS: Band Neutrophils Absolute 3.9 10^3/uL (0.0-0.3); Lymphocytes Absolute Manual 0.52 10^3/uL (1.20-3.80); Segmented Neut Absolute Manual 21.82 10^3/uL (1.4-6.5)
[2023-02-08] MEDS: OMEPRAZOLE 40 MG CAPSULE.DR PO ×2 (09:33→21:12)
[2023-02-08] MEDS: THEOPHYLLINE ANHYDROUS 400 MG TAB.ER.24H PO (09:33)
[2023-02-08] MEDS: L. ACIDOPHILUS/L.BULGARICUS 1 PACKET GRAN.PACK PO ×2 (09:33→21:12)
[2023-02-08] MEDS: AZITHROMYCIN 500 MG in 0.9 % SODIUM CHLORIDE 250 ML 250 MG IV (09:33)
[2023-02-08] MEDS: BUDESONIDE 0.5 MG/2 ML AMPULE NEB IH ×2 (10:41→22:29)
[2023-02-08] MEDS: CETIRIZINE HCL 10 MG TABLET PO (11:06)
--- NOTE | 2023-02-08 11:12 | P.PN_ITS ---
Progress Note: Subjective Subjective Interval history: Patient states cough is somewhat improved but still has significant dyspnea with any activity. This is worse than her baseline. Somewhat improved from initial admission but still not to baseline Exam Constitutional Vital Signs, click to edit/add: Last Vital Signs Temp 97.7 F 02/08/23 04:28 Pulse 102 H 02/08/23 05:13 Resp 20 02/08/23 05:13 BP 108/69 02/08/23 04:28 Pulse Ox 92 L 02/08/23 10:49 O2 Del Method Nasal Cannula 02/08/23 10:49 O2 Flow Rate 2 02/08/23 10:49 HENMT Common normals: moist oral mucous membranes Chest Common normals: inspection of chest normal Respiratory Common normals: abnormal respiratory effort Effort & inspection: respiratory distress Auscultation: rhonchi, wheezes and diminished lung sounds Cardio Common normals: irregular rate Rate: tachycardic GI Common normals: Normal to inspection, nondistended, normoactive bowel sounds present Progress Note: Objective Labs Labs: Short CBC 02/08/23 Range/Units 05:38 WBC 26.3 H (4.0-11.0) 10^3/uL Hgb 12.1 (12.0-16.0) g/dL Hct 38.8 (36.0-48.0) % Plt Count 297 (150-450) 10^3/uL BMP 02/08/23 05:38 Sodium 140 Potassium 3.7 Chloride 99 Carbon Dioxide 36.7 H BUN 10.0 Creatinine 0.47 L Glucose 149 H Calcium 9.3 Progress Note: A&P Assessment and Plan (1) Acute infective exacerbation of chronic obstructive airway disease: (2) Community acquired pneumonia: (3) Iron deficiency anemia: (4) Acute and chronic respiratory failure with hypoxia: (5) Acute bronchitis: (6) Sinus tachycardia: Plan Sinus tachycardia, respiratory distress, acute hypoxic respiratory failure secondary to acute exacerbation of COPD oxygen dependant with CO2 retention due to RLL pneumonia, with metabolic alkalosis and respiratory acidosis on ABG sputum culture , has bandemia and inc leukocytosis - IV antibiotics, IV steroids, already failed oral agents as an outpatient - 2 - 3 day hospital stay - maintain in-pt status, with the leukocytosis today and bandemia as well consideration for changing antibiotics. But patient overall is improved. Somewhat better air exchange on lung exam and overall patient does feel slightly better. No fevers. Awaiting sputum culture. sinus tachycardia -continue to monitor-improved Iron deficiency anemia-monitor daily, supplement
[2023-02-08] MEDS: ENSURE HP 237 ML LIQUID PO ×2 (12:13→21:12)
[2023-02-08] MEDS: MONTELUKAST SODIUM 10 MG TABLET PO (22:30)
[2023-02-09] VITALS (9 sets, daily range): BP systolic 121–144; BP diastolic 66–81; PULSE 98–128; RESP 0–24; TEMP 36.4; O2SAT 90–97
[2023-02-09] MEDS: METHYLPREDNISOLONE SOD SUCC PF 125 MG/2 ML VIAL IVP ×2 (01:04→05:22)
[2023-02-09] MEDS: PIPERACILLIN SODIUM/TAZOBACTAM 3.375 GM in 0.9 % SODIUM CHLORIDE 50 ML IV ×3 (04:03→21:30)
[2023-02-09] MEDS: IPRATROPIUM/ALBUTEROL SULFATE 3 ML AMPUL.NEB IH ×4 (04:49→23:18)
[2023-02-09] MEDS: SODIUM CHLORIDE 0.9% INHALATION 3 ML NEB 6 ML IH ×4 (04:49→23:18)
[2023-02-09 04:53] LABS: Anion Gap 5.5; BUN Creatinine Ratio 27.7; Calcium 9.2 mg/dL (8.5-10.1); Carbon Dioxide 41.2 mmol/L (21.0-32.0); Chloride 102 mmol/L (98-107); Estimated GFR (African America >60 (>=60); Estimated GFR (Non-African Ame >60 (>=60); Glucose 135 mg/dL (74-106); Potassium 3.7 mmol/L (3.5-5.1); Sodium 145 mmol/L (136-145)
[2023-02-09 04:59] LABS: Hematocrit 38.5 % (36.0-48.0); Mean Corpuscular HGB Conc 31.2 g/dL (29.9-35.2); Mean Corpuscular Hemoglobin 28.2 pg (26.7-34.0); Mean Corpuscular Volume 90.4 fL (81.0-99.0); Mean Platelet Volume 9.7 fL (9.5-13.5); Platelet Count 312 10^3/uL (150-450); Red Blood Count 4.26 10^6/uL (4.20-5.40); Red Cell Distribution Width 13.2 % (11.0-15.0); White Blood Count 23.1 10^3/uL (4.0-11.0)
[2023-02-09 05:18] LABS: Band Neutrophils Absolute 0.5 10^3/uL (0.0-0.3); Lymphocytes Absolute Manual 0.46 10^3/uL (1.20-3.80); Monocytes Absolute Manual 0.23 10^3/uL (0.30-0.80); Segmented Neut Absolute Manual 21.94 10^3/uL (1.4-6.5)
[2023-02-09] MEDS: NYSTATIN 500,000 UNIT/5 ML ORAL.SUSP 500000 UNIT PO ×4 (05:22→22:56)
[2023-02-09] MEDS: BENZONATATE 100 MG CAPSULE 200 MG PO ×3 (05:23→22:56)
--- NOTE | 2023-02-09 06:00 | XR_ITS ---
The [address] [address] Patient Name: PHOEBE STANLEY MRN: [id number] date: 1960 Sex: F Assigned Patient Location: [place] Current Patient Location: [place] Accession/Order Number: [id number] Exam Date: 02/09/2023 05:35 Report Date: 02/09/2023 06:54 At the request of: ADITHYA KENYON Procedure: XR chest 2V EXAMINATION: XR chest 2V HISTORY: RLL pneumonia , shortness of breath with exertion COMPARISON: XR chest 01/30/2023, 10/03/2018 FINDINGS: LUNGS: Hyperexpanded lungs and mild opacities within right lung base obscuring the diaphragm margin and costophrenic angle. Stable left apical scarring. VASCULATURE: No increased pulmonary vasculature. PLEURA: No pneumothorax, effusion, or pleural thickening. CARDIAC: No cardiomegaly or cardiac silhouette abnormality. MEDIASTINUM: No visible mass or adenopathy. BONES: No fracture or visible bone lesion. OTHER: Negative. XR/XR chest 2V IMPRESSION: 1. Mild-moderate right basilar infiltrates suggestive of pneumonia; stable to minimally increased. 2. Hyperexpanded lungs compatible with COPD. Electronically authenticated by: LINDA TANG Date: 02/09/2023 06:54
--- NOTE | 2023-02-09 07:53 | P.PN_ITS ---
Progress Note: Subjective Subjective Interval history: Patient was significant dyspnea still, does feel like her cough is loosening up and was able to give a sputum sample. Exam Constitutional Vital Signs, click to edit/add: Last Vital Signs Temp 97.6 F 02/09/23 05:32 Pulse 101 H 02/09/23 05:32 Resp 18 02/09/23 05:32 BP 144/78 H 02/09/23 05:32 Pulse Ox 93 L 02/09/23 05:32 O2 Del Method Nasal Cannula 02/09/23 05:32 O2 Flow Rate 2 02/09/23 05:32 HENIL Common normals: moist oral mucous membranes Chest Common normals: inspection of chest normal Respiratory Common normals: abnormal respiratory effort Effort & inspection: respiratory distress Auscultation: rhonchi, wheezes and diminished lung sounds Cardio Common normals: irregular rate Rate: tachycardic GI Common normals: Normal to inspection, nondistended, normoactive bowel sounds present Progress Note: Objective Labs Labs: Short CBC 02/09/23 Range/Units 04:19 WBC 23.1 H (4.0-11.0) 10^3/uL Hgb 12.0 (12.0-16.0) g/dL Hct 38.5 (36.0-48.0) % Plt Count 312 (150-450) 10^3/uL BMP 02/09/23 04:19 Sodium 145 Potassium 3.7 Chloride 102 Carbon Dioxide 41.2 H BUN 13.0 Creatinine 0.47 L Glucose 135 H Calcium 9.2 Progress Note: A&P Assessment and Plan (1) Acute infective exacerbation of chronic obstructive airway disease: (2) Community acquired pneumonia: (3) Iron deficiency anemia: (4) Acute and chronic respiratory failure with hypoxia: (5) Acute bronchitis: (6) Sinus tachycardia: Plan Sinus tachycardia, respiratory distress, acute hypoxic respiratory failure secondary to acute exacerbation of COPD oxygen dependant with CO2 retention due to RLL pneumonia, with metabolic alkalosis and respiratory acidosis on ABG sputum culture , has bandemia and inc leukocytosis - IV antibiotics, IV steroids, already failed oral agents as an outpatient - 2 - 3 day hospital stay - maintain in-pt status, white blood cell count is a little bit better today. Bandemia has resolved. So maintain current antibiotics. Chest x-ray does show slight progression of the right lower lobe pneumonia. With overall improvement she is back down to her baseline of 2 L, continue with IV antibiotics. If improved tomorrow possible discharge tomorrow. Taper steroids today. Tolerating IPV treatments well Hyperglycemia-secondary to steroids, continue to monitor sinus tachycardia -continue to monitor-improved Iron deficiency anemia-monitor daily, supplement
[2023-02-09] MEDS: GUAIFENESIN 600 MG TAB.ER.12H 1200 MG PO ×2 (08:52→21:30)
[2023-02-09] MEDS: L. ACIDOPHILUS/L.BULGARICUS 1 PACKET GRAN.PACK PO ×2 (08:52→21:29)
[2023-02-09] MEDS: METHYLPREDNISOLONE SOD SUCC PF 125 MG/2 ML VIAL 60 MG IVP ×3 (08:52→21:30)
[2023-02-09] MEDS: THEOPHYLLINE ANHYDROUS 400 MG TAB.ER.24H 200 MG PO (08:52)
[2023-02-09] MEDS: OMEPRAZOLE 40 MG CAPSULE.DR PO ×2 (08:52→21:29)
[2023-02-09] MEDS: ENSURE HP 237 ML LIQUID PO ×2 (08:52→21:31)
[2023-02-09] MEDS: AZITHROMYCIN 500 MG in 0.9 % SODIUM CHLORIDE 250 ML 250 MG IV (09:00)
[2023-02-09] MEDS: BUDESONIDE 0.5 MG/2 ML AMPULE NEB IH ×2 (11:03→23:18)
[2023-02-09] MEDS: 0.9 % SODIUM CHLORIDE 250 ML 10 ML IV (11:39)
[2023-02-09 16:17] LABS: Theophylline <2.0 ug/mL (10.0-20.0)
[2023-02-09] MEDS: MONTELUKAST SODIUM 10 MG TABLET PO (22:56)
[2023-02-10] MEDS: METHYLPREDNISOLONE SOD SUCC PF 125 MG/2 ML VIAL 60 MG IVP ×2 (02:01→10:41)
[2023-02-10 04:36] VITALS: PULSE 97; RESP 20; O2SAT 90
[2023-02-10] MEDS: IPRATROPIUM/ALBUTEROL SULFATE 3 ML AMPUL.NEB IH ×2 (04:36→10:52)
[2023-02-10] MEDS: SODIUM CHLORIDE 0.9% INHALATION 3 ML NEB 6 ML IH ×2 (04:36→10:51)
[2023-02-10 04:51] VITALS: PULSE 94; RESP 20; O2SAT 97
[2023-02-10 04:52] LABS: Basophils Percent Auto 0.1 % (0.2-2.0); Hematocrit 37.6 % (36.0-48.0); Hemoglobin 11.6 g/dL (12.0-16.0); Immature Granulocytes Abs Auto 0.11 10^3/uL (0.00-0.03); Immature Granulocytes Pct Auto 0.8 % (0.0-0.5); Lymphocytes Absolute Auto 0.4 10^3/uL (1.2-3.8); Lymphocytes Percent Auto 2.9 % (20.5-60.0); Mean Corpuscular HGB Conc 30.9 g/dL (29.9-35.2); Mean Corpuscular Hemoglobin 28.1 pg (26.7-34.0); Mean Platelet Volume 9.7 fL (9.5-13.5); Monocytes Absolute Auto 0.3 10^3/uL (0.3-0.8); Monocytes Percent Auto 1.8 % (1.7-12.0); Neutrophils Absolute Auto 13.8 10^3/uL (1.4-6.5); Neutrophils Percent Auto 94.4 % (43.0-75.0); Platelet Count 311 10^3/uL (150-450); Red Blood Count 4.13 10^6/uL (4.20-5.40); White Blood Count 14.6 10^3/uL (4.0-11.0)
[2023-02-10 05:12] LABS: Anion Gap 2.4; BUN Creatinine Ratio 34.1; Calcium 9.1 mg/dL (8.5-10.1); Carbon Dioxide 41.5 mmol/L (21.0-32.0); Chloride 101 mmol/L (98-107); Estimated GFR (African America >60 (>=60); Estimated GFR (Non-African Ame >60 (>=60); Glucose 137 mg/dL (74-106); Potassium 3.9 mmol/L (3.5-5.1); Sodium 141 mmol/L (136-145)
[2023-02-10] MEDS: BENZONATATE 100 MG CAPSULE 200 MG PO (05:16)
[2023-02-10] MEDS: PIPERACILLIN SODIUM/TAZOBACTAM 3.375 GM in 0.9 % SODIUM CHLORIDE 50 ML IV ×2 (05:16→11:43)
[2023-02-10] MEDS: NYSTATIN 500,000 UNIT/5 ML ORAL.SUSP 500000 UNIT PO ×2 (05:17→11:43)
[2023-02-10 06:00] VITALS: BP 155/78; PULSE 88; RESP 24; TEMP 36.6; O2SAT 92
--- NOTE | 2023-02-10 07:51 | P.DS_ITS ---
DS: Providers Provider Date of admission: 02/07/23 08:05 Primary care physician: Kaiden Bass MD Consults: 02/07/23 Consult to Dietitian Routine Reason For Exam: BMI Reason for consultation: BMI DS: Diagnosis Discharge Diagnosis (1) Acute infective exacerbation of chronic obstructive airway disease: (2) Community acquired pneumonia: (3) Iron deficiency anemia: (4) Acute and chronic respiratory failure with hypoxia: (5) Acute bronchitis: (6) Sinus tachycardia: Plan Sinus tachycardia, respiratory distress, acute hypoxic respiratory failure secondary to acute exacerbation of COPD oxygen dependant with CO2 retention due to RLL pneumonia, with metabolic alkalosis and respiratory acidosis on ABG sputum culture , has bandemia and inc leukocytosis meeting criteria for sepsis- IV antibiotics, IV steroids, already failed oral agents as an outpatient Hyperglycemia-secondary to steroids sinus tachycardia Iron deficiency anemia DS: Summary Hospital Course Hospital Course: Patient with oxygen dependent COPD presented to the emergency room with increasing cough and shortness of breath. Found to have acute hypoxia resulting in need for 4 L of nasal cannula oxygen. Also leukocytosis, tachycardia, tachypnea, patient is already been treated over the last 10 days with antibiotics and steroids. With the failure of outpatient treatment and the increased hypoxia from her baseline patient is admitted for work-up and treatment of right lower lobe pneumonia. Patient was placed on antibiotics. Wh ite blood cell count did not improve until the day of discharge. She had bandemia initially but that is resolved. Her oxygen is back down to her baseline of 2 L. She does have a history of CO2 retention so not trying to be overly aggressive with her oxygen supplementation. Overall she does feel improved still significant dyspnea with activity. But with white blood cell count improving oxygen back to baseline she be discharged home in improving condition. Medications see list. Follow-up with me in the office next week. Time Spent with Patient Time attestation: Total time spent providing and/or coordinating discharge services: Exam Constitutional Vital Signs, click to edit/add: Last Vital Signs Temp 97.9 F 02/10/23 06:00 Pulse 88 02/10/23 06:00 Resp 24 02/10/23 06:00 BP 155/78 H 02/10/23 06:00 Pulse Ox 92 L 02/10/23 06:00 O2 Del Method Nasal Cannula 02/10/23 04:51 O2 Flow Rate 2 02/10/23 06:00 HENMT Common normals: moist oral mucous membranes Chest Common normals: inspection of chest normal Respiratory Common normals: abnormal respiratory effort Effort & inspection: respiratory distress Auscultation: rhonchi, wheezes and diminished lung sounds Cardio Common normals: irregular rate Rate: tachycardic GI Common normals: Normal to inspection, nondistended, normoactive bowel sounds present DS: Data Data Completed and Pending Labs on day of discharge: Labs from last 24 hours 02/10/23 02/08/23 02/07/23 04:32 05:38 06:55 WBC 14.6 H RBC 4.13 L Hgb 11.6 L Hct 37.6 MCV 91.0 MCH 28.1 MCHC 30.9 RDW 13.0 Plt Count 311 MPV 9.7 Neut % (Auto) 94.4 H Lymph % (Auto) 2.9 L [place] % (Auto) 1.8 Eos % (Auto) 0.0 L Baso % (Auto) 0.1 L Neut # (Auto) 13.8 H Lymph # (Auto) 0.4 L [place] # (Auto) 0.3 Eos # (Auto) 0.0 Baso # (Auto) 0.0 Abs Immat Gran (auto) 0.11 H Imm/Tot Granulo (auto) 0.8 H Sodium 141 Potassium 3.9 Chloride 101 Carbon Dioxide 41.5 H Anion Gap 2.4 BUN 15.0 Creatinine 0.44 L Est GFR ( Amer) >60 Est GFR (Non-Af Amer) >60 BUN/Creatinine Ratio 34.1 Glucose 137 H Calcium 9.1 Theophylline <2.0 L 2.0 L Preliminary micro results at discharge 02/07/23 07:00 Blood Culture Result 1 - Preliminary Blood NO GROWTH AT 36-48 HOURS. FINAL TO FOLLOW. 02/07/23 06:55 - Preliminary Blood NO GROWTH AT 36-48 HOURS. FINAL TO FOLLOW. Discharge Plan Discharge Disposition: Home, Self-Care Discharge Medications: New amoxicillin-pot clavulanate 875-125 mg tablet 1 tab PO Q12H Qty: 20 0RF Continued albuterol sulfate [Ventolin HFA] 90 mcg/actuation HFA aerosol inhaler 2 puff INHALATION Q4H PRN (Reason: shortness of breath or wheezing) budesonide 0.5 mg/2 mL suspension for nebulization 0.5 mg inhalation Q12H PRN (Reason: shortness of breath or wheezing) cetirizine 10 mg tablet 10 mg PO DAILY PRN (Reason: allergy symptoms) ipratropium-albuterol 0.5 mg-3 mg(2.5 mg base)/3 mL solution for nebulization 3 ml INHALATION Q6H PRN (Reason: shortness of breath) montelukast 10 mg tablet 10 mg PO .hs Stiolto Respimat 2.5-2.5 mcg/actuation mist 2 puff INHALATION Q24H fluticasone propionate 50 mcg/actuation [place],Suspension 2 spray intranasal QD Qty: 16 0RF Biotene Dry Mouth Oral Rinse Mouthwash 15 ml mucous membrane BID PRN (Reason: dry mouth) Qty: 1000 11RF Rx Instructions: swish for 15-30 secs , then spit out; do not swallow prednisone 10 mg tablet 10 mg PO QDAY Rx Instructions: TAKE 5 TABS BY MOUTH X3DAYS,4 TABS X3DAYS,3 TABS X3DAYS 2 TABS X3DAYS,1 TAB X3DAYS,1/2 TAB X4DAYS FILLED 02/03/23 theophylline 400 mg tablet extended release 24 hr 400 mg PO DAILY nystatin 100,000 unit/mL suspension 5 ml PO QID PRN (Reason: thrush) albuterol sulfate [ProAir HFA] 90 mcg/actuation HFA aerosol inhaler 2 inh inhalation QID PRN (Reason: SOB) sodium chloride [NebuSal] 3 % solution for nebulization 4 ml inhalation Q8H PRN (Reason: SOB) Discontinued cefdinir 300 mg capsule 600 mg PO DAILY Rx Instructions: FILLED 01/29 FOR 10 DAYS Forms: Portal Instructions
--- NOTE | 2023-02-10 10:24 | CM.NOTE ---
Discussed chronic disease management with pt, pt verbalizes she has started Pulmonary Rehab and plans on continuing upon discharge. No home needs identified. Pt does already have home oxygen.
[2023-02-10] MEDS: THEOPHYLLINE ANHYDROUS 400 MG TAB.ER.24H 200 MG PO (10:41)
[2023-02-10] MEDS: GUAIFENESIN 600 MG TAB.ER.12H 1200 MG PO (10:42)
[2023-02-10] MEDS: L. ACIDOPHILUS/L.BULGARICUS 1 PACKET GRAN.PACK PO (10:42)
[2023-02-10] MEDS: ENSURE HP 237 ML LIQUID PO (10:43)
[2023-02-10] MEDS: OMEPRAZOLE 40 MG CAPSULE.DR PO (10:44)
[2023-02-10] MEDS: AZITHROMYCIN 500 MG in 0.9 % SODIUM CHLORIDE 250 ML 250 MG IV (10:44)
[2023-02-10] MEDS: BUDESONIDE 0.5 MG/2 ML AMPULE NEB IH (10:51)
[2023-02-10 11:16] VITALS: O2SAT 93
[2023-02-10 13:02] VITALS: BMI 16.7
--- NOTE | 2023-02-13 15:16 | CM.DCFOLLOWU ---
1st attempt discharge follow up call made by Latonia Saeed on 02/13/23, no answer at this time
== END 2023-02-10 13:05 | disposition home or self-care (01) | DRG 720 ==
LOC: ER 04:29 → MS 08:15
PROVIDERS: Admitting Provider Family Medicine; Emergency Provider Internal Medicine; PCP Family Medicine; Visit Provider Family Medicine
DX: A41.9 Sepsis, unspecified organism (principal); J18.9 Pneumonia, unspecified organism; J44.0 Chronic obstructive pulmonary disease with (acute) lower respiratory infection; J44.1 Chronic obstructive pulmonary disease with (acute) exacerbation; J96.21 Acute and chronic respiratory failure with hypoxia; J20.9 Acute bronchitis, unspecified; R73.9 Hyperglycemia, unspecified; R00.0 Tachycardia, unspecified; E87.4 Mixed disorder of acid-base balance; T38.0X5A Adverse effect of glucocorticoids and synthetic analogues, initial encounter; D50.9 Iron deficiency anemia, unspecified; Z87.891 Personal history of nicotine dependence; Z79.899 Other long term (current) drug therapy; Z99.81 Dependence on supplemental oxygen; Z88.8 Allergy status to other drugs, medicaments and biological substances; Z82.49 Family history of ischemic heart disease and other diseases of the circulatory system
CPT/HCPCS: 0202U; 36415; 36600; 71045; 71046; 80048; 80198; 82805; 83605; 84484; 85025; 85027; 87040; 87070; 87205; 93005; 94640; 94667; 94668; 94761; 94799; 96365; 96366; 96367; 96368; 96375; 96376; 99285; J0456; J2930

== ENCOUNTER 2023-03-04 19:21 | Emergency (ER) | payer OTHER, SELFPAY ==
[2023-03-04] VITALS (13 sets, daily range): BP systolic 118–150; BP diastolic 65–87; PULSE 104–129; RESP 14–29; TEMP 36.5; O2SAT 80–97; BMI 15.4
--- NOTE | 2023-03-04 20:38 | ECG_ITS ---
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
--- NOTE | 2023-03-04 20:38 | XR_ITS ---
The [address] [address] Patient Name: PHOEBE STANLEY MRN: [id number] date: 1960 Sex: F Assigned Patient Location: ER Current Patient Location: ER Accession/Order Number: [id number] Exam Date: 03/04/2023 20:48 Report Date: 03/04/2023 21:41 At the request of: NELL MARKER Procedure: XR chest 2V EXAM: XR chest 2V HISTORY: SOB COPD. COMPARISON: Multiple priors, most recent chest x-ray 02/09/2023 TECHNIQUE: 2 views chest x-rays frontal and lateral FINDINGS: Well-expanded bilateral lungs and flattening of the bilateral diaphragm reflecting COPD. Mild bilateral lower lung linear scar. Biapical lung scar. An irregular 1 cm nodular opacity of the right peripheral lower lung. No large pleural effusion, pneumothorax, or acute bony abnormality. Cardiac size is unremarkable. XR/XR chest 2V IMPRESSION: Extensive bilateral emphysematous lung changes. A developing irregular 1 cm nodular opacity of the right peripheral lower lung reflecting an area of nodular lung scar or suspicious pulmonary nodule. Recommend nonemergency CT chest or short interval within 2-3 months interval chest x-ray follow-up to ensure resolution or stability. Electronically authenticated by: OLGA RAPP Date: 03/04/2023 21:41
--- NOTE | 2023-03-04 20:41 | ED_ITS ---
HPI - SOB/Dyspnea General Chief Complaint: Shortness of Breath/Dyspnea Stated Complaint: COPD SHORTNESS OF BREATH Time Seen by Provider: 03/04/23 20:24 Source: patient Mode of arrival: Wheelchair History of Present Illness HPI Narrative: This 62-year-old female with a history of chronic obstructive pulmonary disease who quit smoking 10 years ago presents for evaluation of increasing shortness of breath for the past several days. She wears 2 L nasal cannula abdominal oxygen. She states that her pulse ox at rest is usually in the 93-94 percent range but when she exerts herself it drops down into the high 80s. She was recently treated for pneumonia after a three-day hospitalization. She finished her antibiotics over a week ago. She is not coughing. She has no hemoptysis. She has no chest pain. She has no abdominal pain nausea or vomiting. She states she has broken out in a cold sweat several times today. She has a staff climate scientist that she sees in [place]. She states that she used her nebulizer machine around 1 PM today. She states she typically tries not to use her nebulizer machine more than 1-2 times a day recently has been increasing to 3 times a day due to the increasing shortness of breath. She has not lost any weight recently and her weight is stable at 90 pounds. She has not had a fever. Related Data Home Medications Medication Instructions Recorded Confirmed albuterol sulfate 90 mcg/actuation 2 puff inhalation Q4H PRN 09/22/22 03/04/23 aerosol inhaler (Ventolin HFA) shortness of breath or wheezing budesonide 0.5 mg/2 mL suspension 0.5 mg inhalation Q12H PRN 09/22/22 03/04/23 for nebulization shortness of breath or wheezing ipratropium 0.5 mg-albuterol 3 mg 3 ml inhalation Q6H PRN shortness 09/22/22 03/04/23 (2.5 mg base)/3 mL nebulization of breath soln montelukast 10 mg tablet 10 mg PO .hs 09/22/22 03/04/23 tiotropium 2.5 mcg-olodaterol 2.5 2 puff inhalation Q24H 09/22/22 03/04/23 mcg/actuation mist for inhalation (Stiolto Respimat) albuterol sulfate 90 mcg/actuation 2 inh inhalation QID PRN SOB 02/07/23 03/04/23 aerosol inhaler (ProAir HFA) nystatin 100,000 unit/mL oral 5 ml PO QID PRN thrush 02/07/23 03/04/23 suspension sodium chloride 3 % for 4 ml inhalation Q8H PRN SOB 02/07/23 03/04/23 nebulization (NebuSal) theophylline 400 mg 400 mg PO DAILY 02/07/23 03/04/23 tablet,extended release 24 hr Previous Rx's Medication Instructions Recorded fluticasone propionate 50 2 spray intranasal QD #16 grams 09/25/22 mcg/actuation nasal spray,suspension saliva substitute combo no.9 15 ml mucous membrane BID PRN dry 09/25/22 (Biotene Dry Mouth Oral Rinse mouth #1,000 mL mouthwash) Allergies Allergy/AdvReac Type Severity Reaction Status Date / Time levofloxacin [From Levaquin] Allergy Intermediate Verified 03/04/23 19:29 Review of Systems ROS Status of ROS 10 or more systems reviewed and unremarkable except as noted in history and below [facility] Medical History (Updated 03/05/23 @ 00:46 by Silvia Rodrigues MD) Acute and chronic respiratory failure with hypoxia ?J96.21 - Acute and chronic respiratory failure with hypoxia (ICD-10) Acute bronchitis ?J20.9 - Acute bronchitis, unspecified (ICD-10) Acute exacerbation of chronic obstructive pulmonary disease ?J44.1 - Chronic obstructive pulmonary disease with (acute) exacerbation (ICD-10) Acute infective exacerbation of chronic obstructive airway disease ?J44.1 - Chronic obstructive pulmonary disease with (acute) exacerbation (ICD-10) Chronic obstructive pulmonary disease ?J44.9 - Chronic obstructive pulmonary disease, unspecified (ICD-10) Community acquired pneumonia ?J18.9 - Pneumonia, unspecified organism (ICD-10) Iron deficiency anemia ?D50.9 - Iron deficiency anemia, unspecified (ICD-10) Sinus tachycardia ?R00.0 - Tachycardia, unspecified (ICD-10) Family History (Updated 09/22/22 @ 21:17 by Veronika Almeida) Other Family history of myocardial infarction Social History (Updated 09/22/22 @ 21:18 by Veronika Almeida) Within the past year, how often did you have a drink containing alcohol: never Score interpretation: A score less than 3 is consistent with normal alcohol consumption. Smoking status: Former smoker Non-prescribed substance use: denies use Previous occupational history: disabled Highest level of school completed/degree received: GED or equivalent Are you now , , , , never or living with a partner: In a typical week, how many times do you talk on the telephone with family, fri ends, or neighbors: 3 or more times per week How often do you get together with friends or relatives: 3 or more times per week How often do you attend synagogue or synagogue services: 1-3 times per year Do you belong to any clubs or organizations such as synagogue groups unions, fraternal or athletic groups, or school groups: no Total score: 2 Score interpretation: A score of greater than or equal to 2 indicates the lowest level of social isolation. Little interest or pleasure in doing things: not at all Feeling down, depressed, or hopeless: not at all Feel stressed/tense/nervous/anxious/difficulty sleeping: not at all Do you think of yourself as: straight/heterosexual Gender Identity: female Exam Narrative Exam Narrative: Nurses note and vital signs reviewed; Patient is afebrile, she is moderately tachycardic with a pulse of 110, blood pressure is elevated 150/86, she is not hypoxic with pulse ox of 96 percent on 2 L nasal cannula which is her baseline General: Cachectic female, she is speaking in 3-4 word sentences with conversational dyspnea, no lacho respiratory distress Skin: Warm, dry, no pallor noted. There is no rash noted. Head: Normocephalic, atraumatic Eye: Normal conjunctiva, no drainage, EOMI. PERRL Ears, Nose, Mouth, and Throat: oral mucosa is moist. Cardiovascular: Regular Rate and Rhythm S1S2, no murmurs, rubs or gallops, tachycardic at 105-110 bpm Respiratory: Lung sounds are diffusely diminished with faint expiratory wheezing bilaterally, supraclavicular accessory muscle use noted, mild intercostal muscle use noted, no rhonchi or rales appreciated Back: non-tender, no CVA tenderness bilaterally to percussion. GI: Normal bowel sounds, no tenderness to palpation, no masses appreciated. No rebound, guarding, or rigidity noted. Musculoskeletal: The patient has no evidence of calf tenderness, no pitting edema, symmetrical pulses noted bilaterally Neurological: A&O x4, normal speech Psychiatric: Cooperative Constitutional Vital Signs, click to edit/add: Last Vital Signs Temp 97.7 F 03/04/23 19:24 Pulse 118 H 03/05/23 00:30 Resp 18 03/05/23 00:30 BP 118/80 03/05/23 00:30 Pulse Ox 94 L 03/05/23 00:30 O2 Del Method Nasal Cannula 03/04/23 19:24 O2 Flow Rate 1.5 03/04/23 21:08 Course Vital Signs Vital signs: Vital Signs Temperature 97.7 F 03/04/23 19:24 Pulse Rate 110 H 03/04/23 19:24 Respiratory Rate 18 03/04/23 19:24 Blood Pressure 150/86 H 03/04/23 19:24 Pulse Oximetry 96 03/04/23 19:24 Oxygen Delivery Method Nasal Cannula 03/04/23 19:24 Oxygen Delivery Flow Rate 2 03/04/23 19:24 Temperature 97.7 F 03/04/23 19:24 Pulse Rate 118 H 03/05/23 00:30 Respiratory Rate 18 03/05/23 00:30 Blood Pressure 118/80 03/05/23 00:30 Pulse Oximetry 94 L 03/05/23 00:30 Oxygen Delivery Method Nasal Cannula 03/04/23 19:24 Oxygen Delivery Flow Rate 1.5 03/04/23 21:08 MDM - SOB/Dyspnea MDM Narrative Medical decision making narrative: This 62-year-old female with a history of chronic obstructive pulmonary disease who quit smoking approximately 10 years ago and has a staff climate scientist that she sees in [facility] who is also oxygen dependent and typically wears 2 L of oxygen presents for evaluation of increasing shortness of breath for the past several days. She was recently admitted to this facility for pneumonia. She has not had a fever. She does not have a cough. She denies any nasal or head congestion. She has no COVID related concerns. She has been using her nebulizer machine more than normal for her. She states that her pulse ox is usually in the 90s when she is resting but dips into the high 80s when she exerts herself. This is her baseline. An EKG done upon arrival was a sinus tachycardia 10 4 bpm with right atrial enlargement but otherwise normal. An IV was placed and she was medicated with IV fluids, 125 mg of Solu-Medrol and 2 g of IV magnesium. She was given a Duoneb by respiratory therapy. Routine labs were ordered. She has a normal white count and hemoglobin. Her electrolytes are normal. Her troponin was normal. Her BNP was normal. Chest x-ray showed a questionable/developing nodule in the right lower lung. She has a mildly elevated d-dimer at 0.66. This was explained to the patient and I explained to her that we would order a CT of her chest to further evaluate her lungs since she recently had pneumonia and has a questionable nodule as well as mildly elevated d-dimer. She then explained to me that in the past she had lung cancer and received radiation therapy to a nodule in her left lung. CT of the chest which is included in the body of this report shows stable left lobe scarring, no pulmonary embolism and findings consistent with emphysema. The patient was reevaluated and states she is feeling better and requests to be discharged home. We discussed her options for steroids and she decided that she would try a Medrol Dosepak as she has not used that in the past. She has the respiratory medications besides the steroids that she needs at home. She will be discharged home at this time. I encouraged her to continue using her respiratory medications as directed and return to the emergency depar tment as needed. Medical Records Medical records narrative: The [address] [address] [address] Scan Report Signed Patient: PHOEBE STANLEY MR#: [id number] : 1960 Acct:[id number] Age/Sex: 62 / F ADM Date: 03/04/23 Loc: ER Attending Dr: Ordering Physician: Silvia Rodrigues Date of Service: 03/04/23 Procedure(s): CT angio chest Accession Number(s): [id number] cc: Kaiden Bass M.D.~ The [address] [address] Patient Name: PHOEBE STANLEY MRN: [id number] date: 1960 Sex: F Assigned Patient Location: ER Current Patient Location: ER Accession/Order Number: [id number] Exam Date: 03/04/2023 22:40 Report Date: 03/05/2023 00:15 At the request of: SILVIA RODRIGUES Procedure: CT angio chest EXAMINATION: CT angio chest HISTORY: SOB, elevated ddimer COMPARISON: CT chest 09/24/2022 TECHNIQUE: Multi-planar CT images were created with IV contrast. Axial, Coronal, and Sagittal images. Dose reduction techniques were achieved by using automated exposure control and/or adjustment of mA and/or kV according to patient size and/or use of iterative reconstruction technique. 3-D reconstruction was performed on a separate workstation. FINDINGS: VASCULATURE: No pulmonary embolism or abnormal opacity. LUNGS: Marked emphysematous changes. Geographic shaped opacity and stranding within left upper lobe suprahilar region; unchanged. Trace amount of atelectasis or infiltrates within right costophrenic angles. PLEURA: No mass, effusion, or pneumothorax. FREDDY: No mass or adenopathy. MEDIASTINUM: No mass or adenopathy. CARDIAC: No enlargement, pericardial effusion, or pericardial thickening. AORTA: No aneurysm or dissection. CHEST WALL: No mass or axillary adenopathy. BONES: No bone lesion or fracture. LIMITED ABDOMEN: Small right renal cyst. No suspicious findings. Limited images of the upper abdomen. OTHER: Negative. CT/CT angio chest IMPRESSION: 1. No pulmonary embolism. 2. Marked emphysematous changes. Stable left upper lobe scarring. 3. Trace amount of atelectasis or infiltrates within right [place]ophren[place] [address] XRay Report Signed Patient: PHOEBE STANLEY MR#: [id number] : 1960 Acct:[id number] Age/Sex: 62 / F ADM Date: 03/04/23 Loc: ER Attending Dr: Ordering Physician: Silvia Rodrigues Date of Service: 03/04/23 Procedure(s): XR chest 2V Accession Number(s): [id number] cc: Kaiden Bass M.D.; Silvia Rodrigues~ The [place] [address] Patient Name: PHOEBE STANLEY MRN: [id number] date: 1960 Sex: F Assigned Patient Location: ER Current Patient Location: ER Accession/Order Number: [id number] Exam Date: 03/04/2023 20:48 Report Date: 03/04/2023 21:41 At the request of: SILVIA JORDANA Procedure: XR chest 2V EXAM: XR chest 2V HISTORY: SOB COPD. COMPARISON: Multiple priors, most recent chest x-ray 02/09/2023 TECHNIQUE: 2 views chest x-rays frontal and lateral FINDINGS: Well-expanded bilateral lungs and flattening of the bilateral diaphragm reflecting COPD. Mild bilateral lower lung linear scar. Biapical lung scar. An irregular 1 cm nodular opacity of the right peripheral lower lung. No large pleural effusion, pneumothorax, or acute bony abnormality. Cardiac size is unremarkable. XR/XR chest 2V IMPRESSION: Extensive bilateral emphysematous lung changes. A developing irregular 1 cm nodular opacity of the right peripheral lower lung reflecting an area of nodular lung scar or suspicious pulmonary nodule. Recommend nonemergency CT chest or short interval within 2-3 months interval chest x-ray follow-up to ensure resolution or stability. Electronically authenticated by: OLGA RAPP Date: 03/04/2023 21:41 Lab Data Attestation: I reviewed the patient's lab results. Labs: Lab Results 03/04/23 Range/Units 20:16 WBC 6.0 (4.0-11.0) 10^3/uL RBC 4.24 (4.20-5.40) 10^6/uL Hgb 12.0 (12.0-16.0) g/dL Hct 37.7 (36.0-48.0) % MCV 88.9 (81.0-99.0) fL MCH 28.3 (26.7-34.0) pg MCHC 31.8 (29.9-35.2) g/dL RDW 13.2 (11.0-15.0) % Plt Count 222 (150-450) 10^3/uL MPV 10.2 (9.5-13.5) fL Seg Neuts % (Manual) 73.0 Lymphocytes % (Manual) 16.0 L (20.5-60.0) % Atypical Lymphs % (Man) 2.0 % Monocytes % (Manual) 8.0 (1.7-12.0) % Eosinophils % (Manual) 1.0 (0.9-7.0) % Basophils % (Manual) 0.0 L (0.2-2.0) % Neutrophils # (Manual) 4.38 (1.4-6.5) 10^3/uL Lymphocytes # (Manual) 0.96 L (1.20-3.80) 10^3/uL Abs Atypical Lymphs Man 0.1 Monocytes # (Manual) 0.48 (0.30-0.80) 10^3/uL Eosinophils # (Manual) 0.06 (0.00-0.70) 10^3/uL Basophils # (Manual) 0.00 (0.00-0.10) 10^3/uL Hypochromasia 2+ Anisocytosis 2+ D-Dimer 0.66 H* (<=0.59) mg/L FEU Sodium 137 (136-145) mmol/L Potassium 3.9 (3.5-5.1) mmol/L Chloride 98 (98-107) mmol/L Carbon Dioxide 36.3 H (21.0-32.0) mmol/L Anion Gap 6.6 BUN 12.0 (7.0-18.0) mg/dL Creatinine 0.55 (0.55-1.02) mg/dL Est GFR ( Amer) >60 (>=60) Est GFR (Non-Af Amer) >60 (>=60) BUN/Creatinine Ratio 21.8 Glucose 98 (74-106) mg/dL Lactate 0.8 (0.4-2.0) mmol/L Calcium 9.5 (8.5-10.1) mg/dL Total Bilirubin 0.3 (0.2-1.0) mg/dL AST 28 (15-37) U/L ALT 31 (14-59) U/L Alkaline Phosphatase 90 (46-116) U/L Troponin I High Sens 6.3 (4.0-51.3) pg/mL NT-Pro-B Natriuret Pep 72.0 (<=900.0) pg/mL Total Protein 7.5 (6.4-8.2) g/dL Albumin 3.5 (3.4-5.0) g/dL Globulin 4.0 g/dL Albumin/Globulin Ratio 0.9 Discharge Plan Discharge Chief Complaint: Shortness of Breath/Dyspnea Clinical Impression: Asthma exacerbation in COPD Patient Disposition: Home, Self-Care Time of Disposition Decision: 00:43 Condition: Good Prescriptions / Home Meds: No Action albuterol sulfate [Ventolin HFA] 90 mcg/actuation HFA aerosol inhaler 2 puff INHALATION Q4H PRN (Reason: shortness of breath or wheezing) budesonide 0.5 mg/2 mL suspension for nebulization 0.5 mg inhalation Q12H PRN (Reason: shortness of breath or wheezing) ipratropium-albuterol 0.5 mg-3 mg(2.5 mg base)/3 mL solution for nebulization 3 ml INHALATION Q6H PRN (Reason: shortness of breath) montelukast 10 mg tablet 10 mg PO .hs Stiolto Respimat 2.5-2.5 mcg/actuation mist 2 puff INHALATION Q24H fluticasone propionate 50 mcg/actuation [place],Suspension 2 spray intranasal QD Qty: 16 0RF Biotene Dry Mouth Oral Rinse Mouthwash 15 ml mucous membrane BID PRN (Reason: dry mouth) Qty: 1000 11RF Rx Instructions: swish for 15-30 secs , then spit out; do not swallow theophylline 400 mg tablet extended release 24 hr 400 mg PO DAILY nystatin 100,000 unit/mL suspension 5 ml PO QID PRN (Reason: thrush) albuterol sulfate [ProAir HFA] 90 mcg/actuation HFA aerosol inhaler 2 inh inhalation QID PRN (Reason: SOB) sodium chloride [NebuSal] 3 % solution for nebulization 4 ml inhalation Q8H PRN (Reason: SOB) Instructions: COPD (Chronic Obstructive Pulmonary Disease) (ED), Chronic Lung Disease and Infection Prevention (ED) Stand Alone Forms: Portal Instructions Referrals: Kaiden Bass MD [Primary Care Provider] - 1 week
[2023-03-04 20:47] LABS: Hematocrit 37.7 % (36.0-48.0); Mean Corpuscular HGB Conc 31.8 g/dL (29.9-35.2); Mean Corpuscular Hemoglobin 28.3 pg (26.7-34.0); Mean Corpuscular Volume 88.9 fL (81.0-99.0); Mean Platelet Volume 10.2 fL (9.5-13.5); Platelet Count 222 10^3/uL (150-450); Red Blood Count 4.24 10^6/uL (4.20-5.40); Red Cell Distribution Width 13.2 % (11.0-15.0)
[2023-03-04 20:57] LABS: Alanine Aminotransferase 31 U/L (14-59); Albumin Globulin Ratio 0.9; Albumin Level 3.5 g/dL (3.4-5.0); Alkaline Phosphatase 90 U/L (46-116); Anion Gap 6.6; Aspartate Amino Transferase 28 U/L (15-37); BUN Creatinine Ratio 21.8; Bilirubin Total 0.3 mg/dL (0.2-1.0); Calcium 9.5 mg/dL (8.5-10.1); Carbon Dioxide 36.3 mmol/L (21.0-32.0); Chloride 98 mmol/L (98-107); Estimated GFR (African America >60 (>=60); Estimated GFR (Non-African Ame >60 (>=60); Glucose 98 mg/dL (74-106); Potassium 3.9 mmol/L (3.5-5.1); Sodium 137 mmol/L (136-145); Total Protein 7.5 g/dL (6.4-8.2)
[2023-03-04 20:59] LABS: D Dimer 0.66 mg/L FEU (<=0.59)
[2023-03-04 21:00] LABS: Lactate/Lactic Acid 0.8 mmol/L (0.4-2.0)
[2023-03-04] MEDS: 0.9 % SODIUM CHLORIDE 500 ML IV (21:01)
[2023-03-04] MEDS: MAGNESIUM SULFATE IN WATER 2 G/50 ML PREMIX IV (21:01)
[2023-03-04] MEDS: METHYLPREDNISOLONE SOD SUCC PF 125 MG/2 ML VIAL IVP (21:01)
[2023-03-04 21:03] LABS: Atypical Lymphocytes Abs Man 0.1; Eosinophils Absolute Manual 0.06 10^3/uL (0.00-0.70); Lymphocytes Absolute Manual 0.96 10^3/uL (1.20-3.80); Monocytes Absolute Manual 0.48 10^3/uL (0.30-0.80); Segmented Neut Absolute Manual 4.38 10^3/uL (1.4-6.5)
[2023-03-04 21:04] LABS: Anisocytosis 2+; Hypochromasia 2+
[2023-03-04 21:06] LABS: Troponin I High Sensitivity 6.3 pg/mL (4.0-51.3)
[2023-03-04] MEDS: IPRATROPIUM/ALBUTEROL SULFATE 3 ML AMPUL.NEB IH (21:08)
--- NOTE | 2023-03-04 21:50 | CT_ITS ---
[address] [address] Patient Name: PHOEBE STANLEY MRN: [id number] date: 1960 Sex: F Assigned Patient Location: ER Current Patient Location: Accession/Order Number: [id number] Exam Date: 03/04/2023 22:40 Report Date: 03/05/2023 00:15 At the request of: NELL MARKER Procedure: CT angio chest EXAMINATION: CT angio chest HISTORY: SOB, elevated ddimer COMPARISON: CT chest 09/24/2022 TECHNIQUE: Multi-planar CT images were created with IV contrast. Axial, Coronal, and Sagittal images. Dose reduction techniques were achieved by using automated exposure control and/or adjustment of mA and/or kV according to patient size and/or use of iterative reconstruction technique. 3-D reconstruction was performed on a separate workstation. FINDINGS: VASCULATURE: No pulmonary embolism or abnormal opacity. LUNGS: Marked emphysematous changes. Geographic shaped opacity and stranding within left upper lobe suprahilar region; unchanged. Trace amount of atelectasis or infiltrates within right costophrenic angles. PLEURA: No mass, effusion, or pneumothorax. FREDDY: No mass or adenopathy. MEDIASTINUM: No mass or adenopathy. CARDIAC: No enlargement, pericardial effusion, or pericardial thickening. AORTA: No aneurysm or dissection. CHEST WALL: No mass or axillary adenopathy. BONES: No bone lesion or fracture. LIMITED ABDOMEN: Small right renal cyst. No suspicious findings. Limited images of the upper abdomen. OTHER: Negative. CT/CT angio chest IMPRESSION: 1. No pulmonary embolism. 2. Marked emphysematous changes. Stable left upper lobe scarring. 3. Trace amount of atelectasis or infiltrates within right costophrenic angle. Electronically authenticated by: LINDA TANG Date: 03/05/2023 00:15
[2023-03-05] VITALS: BP 114/78; PULSE 117; RESP 19; O2SAT 92
[2023-03-05 00:30] VITALS: BP 118/80; PULSE 118; RESP 18; O2SAT 94
[2023-03-05 01:00] VITALS: RESP 20; O2SAT 95
== END 2023-03-05 01:00 | disposition home or self-care (01) ==
PROVIDERS: Emergency Provider Emergency Medicine; PCP Family Medicine
DX: J44.1 Chronic obstructive pulmonary disease with (acute) exacerbation (principal); Z99.81 Dependence on supplemental oxygen; Z79.899 Other long term (current) drug therapy; Z87.01 Personal history of pneumonia (recurrent); Z87.891 Personal history of nicotine dependence; Z85.118 Personal history of other malignant neoplasm of bronchus and lung
CPT/HCPCS: 36415; 71046; 71275; 80053; 83605; 83880; 84484; 85027; 85378; 93005; 94640; 96365; 96375; 99285; J2930; Q9967

== ENCOUNTER 2023-03-17 13:42 | Outpatient (OUT) | payer OTHER, SELFPAY ==
--- NOTE | 2023-03-17 13:52 | XR_ITS ---
The [address] [address] Patient Name: PHOEBE STANLEY MRN: [id number] date: 1960 Sex: F Assigned Patient Location: [facility] Current Patient Location: [facility] Accession/Order Number: [id number] Exam Date: 03/17/2023 13:55 Report Date: 03/17/2023 15:26 At the request of: ADITHYA KENYON Procedure: XR chest 2V EXAM: XR chest 2V HISTORY: Chronic Obstructive Pulmonary Disorder J44.9 COMPARISON: Chest radiograph dated 03/04/2023, CTA chest dated 03/04/2023 and 08/15/[address] chest dated 02/15/2022. TECHNIQUE: PA and lateral views of the chest performed. FINDINGS: The trachea is midline. The heart size is normal. There is stable mild atheromatous calcification at the aortic arch. The lung covarrubias are emphysematous. The irregular densities within the left upper and right lower chest are stable. There is no new consolidation or infiltrate. There is no pleural effusion or pulmonary vascular congestion. There is no pneumothorax. The bony structures are osteopenic. XR/XR chest 2V IMPRESSION: There is no acute cardiopulmonary process. Emphysema. Stable irregular densities within the left upper and the right lower chest. Please refer to the CTA chest examination dated 03/04/2023 for more detailed evaluation. Electronically authenticated by: YOUSUF CEDILLO Date: 03/17/2023 15:26
== END 2023-03-17 13:43 | disposition home or self-care (01) ==
LOC: RAD 13:44
PROVIDERS: PCP Family Medicine; Visit Provider Family Medicine
DX: J44.9 Chronic obstructive pulmonary disease, unspecified (principal)
CPT/HCPCS: 71046

== ENCOUNTER 2023-03-25 07:07 | Outpatient (RCR) | payer OTHER, SELFPAY ==
--- NOTE | 2022-10-07 14:17 | CR1_ITS ---
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
--- NOTE | 2022-11-05 13:41 | CR1_ITS ---
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
--- NOTE | 2022-12-04 13:52 | CR1_ITS ---
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
--- NOTE | 2022-12-31 15:54 | CR1_ITS ---
The 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
--- NOTE | 2023-01-29 08:48 | CR1_ITS ---
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
--- NOTE | 2023-02-27 10:49 | CR1_ITS ---
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
--- NOTE | 2023-02-27 11:22 | CR1_ITS ---
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
== END 2023-03-29 09:01 | disposition home or self-care (01) ==
LOC: CR 07:07
PROVIDERS: PCP Family Medicine; Visit Provider Family Medicine
DX: J44.9 Chronic obstructive pulmonary disease, unspecified (principal); J96.90 Respiratory failure, unspecified, unspecified whether with hypoxia or hypercapnia
CPT/HCPCS: 94625

== ENCOUNTER 2023-03-31 13:30 | Outpatient (OUT) | payer OTHER, SELFPAY | END 2023-03-31 13:31 | disposition home or self-care (01) | LOC: CARD 04-07 10:41 | PROVIDERS: PCP Family Medicine; Visit Provider Family Medicine | DX: J44.9 Chronic obstructive pulmonary disease, unspecified (principal) | CPT/HCPCS: 94618 ==

== ENCOUNTER 2023-04-03 13:20 | Outpatient (OUT) | payer OTHER, SELFPAY ==
--- OUTSIDE RECORDS SUMMARY | 2023-04-03 13:26 | XMS_ITS | CCD ---
Author Name Unknown Address [address] [place] [address] Organization [facility] Care Team Providers Care Unit Supervisor Name Role Phone Adithya Kenyon Unavailable Unavailable JAYE HOUGH Unavailable Unavailable ADITHYA KENYON Unavailable Unavailable DUGLAS FERNANDEZ Unavailable Unavailable Adithya Kenyon MD Primary Care Provider [phone] Adithya Kenyon MD Primary Care Provider [phone] Adithya Kenyon MD Primary Care Provider [phone] VITOR FARIAS Attending Unavailable ADITHYA KENYON Primary Care Unavailable Jose Conde Unavailable DR JOSE CONDE Admitting Unavailable BLANK, DR GARCIA Attending Unavailable ELTON, DR GARCIA Consulting Unavailable HOY ., DR HAJI Primary Care Unavailable MISC, DR MUJICA Admitting Unavailable MISC, DR MUJICA Attending Unavailable MISC, DR MUJICA Consulting Unavailable HOY ., DR HAJI Primary Care Unavailable HOY ., DR HAJI Admitting Unavailable HOY ., DR HAJI Attending Unavailable HOY ., DR HAJI Consulting Unavailable HOY ., DR HAJI Primary Care Unavailable HOY ., DR HAJI Primary Care Unavailable HOY ., DR HAJI Attending Unavailable HOY ., DR HAJI Admitting Unavailable HOY ., DR HAJI Admitting Unavailable HOY ., DR HAJI Attending Unavailable HOY ., DR HAJI Consulting Unavailable HOY ., DR HAJI Primary Care Unavailable MARKER ., DR CAMEJO Consulting Unavailable OMAR .TAMIA Consulting Unavailable FABIOLA WILD Consulting Unavailable EAMON ANDREWS Consulting Unavailable HOY ., DR HAJI Admitting Unavailable HOY ., DR HAJI Attending Unavailable HOY ., DR HAJI Consulting Unavailable JESSEY ., DR HAJI Primary Care Unavailable HIGHLANDS, DR JULES Naranjo Consulting Unavailable HOY ., DR HAJI Admitting Unavailable HOY ., DR HAJI Attending Unavailable HOY ., DR HAJI Consulting Unavailable CHANTALE ., DR HAJI Primary Care Unavailable CHANTALE ., DR HAJI Admitting Unavailable CHANTALE ., DR HAJI Attending Unavailable JESSEY ., DR HAJI Consulting Unavailable JESSEY ., DR HAJI Primary Care Unavailable BLANK, DR GARCIA Admitting Unavailable BLANK, DR GARCIA Attending Unavailable BLANK, DR GARCIA Consulting Unavailable CHANTALE ., DR HAJI Primary Care Unavailable Adithya Kenyon MD Primary Care Provider [phone] SHEA KENYONLAS Oz Primary Care Unavailable NATY SORENSENALI Attending Unavailable EDU, YASMIN Admitting Unavailable CICENIA, VITOR C Referring Unavailable HOY, ADITHYA M Primary Care Unavailable CICENIA, VITOR C Referring Unavailable HOY, ADITHYA M Primary Care Unavailable LINDY, ABDI Attending Unavailable HOY, ADITHYA M Primary Care Unavailable LINDY, ABDI Referring Unavailable HOY, ADITHYA M Primary Care Unavailable LINDY, ABDI Referring Unavailable LINDY, ABDI Attending Unavailable HOY, ADITHYA M Primary Care Unavailable HOY, ADITHYA M Primary Care Unavailable LINDY, ABDI Referring Unavailable LINDY, ABDI Attending Unavailable JARRETT, VITOR C Referring Unavailable HOY, ADIHTYA M Primary Care Unavailable Allergies Allergy Classification Reported Allergen(s) Allergy Type Date of Onset Reaction(s) Facility (20 sources) levoFLOXacin; Translations: [LEVOFLOXACIN] Drug Allergy 03-02-2018 Unknown [facility] Repository (2 sources) levoFLOXacin Drug Allergy [facility] Repository Medications Current Medications Medication Drug Class(es) Dates Sig (Normalized) Sig (Original) albuterol 0.833 mg/ml / ipratropium bromide 0.167 mg/ml inhalation solution (3 sources) Anticholinergic, beta2-Adrenergic Agonist Ipratropium-Albutero l 0.5-2.5 (3) MG/3ML DIRECTED Inhalation Active nystatin 271916 unt/ml oral suspension (3 sources) Polyene Antifungal Nystatin 1000 00 units/mL 1 mL to each cheek Four times a day Active oxygen as ordered (3 sources) oxygen as ordere d qhs Active predniSONE 10 mg oral tablet (3 sources) prednisone 10 mg as directed Orally as directed Active sodium chloride 9 mg/ml inhalation solution (3 sources) Sodium Chloride 0.9 % as directed Inhalation Three times a day Active Completed/Discontinued Medications Medication Drug Class(es) Dates Sig (Normalized) Sig (Original) albuterol 5 mg/ml inhalation solution (18 sources) beta2-Adrenergic Agonist albuterol (PROVENTIL ) 2.5 mg/0.5 mL nebulizar solution PEDIATRIC ASTHMA Inhale 2.5-5 mg as instructed as directed. 0 Active take 2 puff(s) by in halation every four hours as needed Ventolin HFA 108 (90 Base) MCG/ACT 2 puffs as needed Inhalation every 4 hrs Active Comment on above: Inhale 2.5-5 mg as i nstructed as directed. budesonide 0.5 mg/ml inhalation suspension (18 sources) Corticosteroid Start: 04-27-19 20 take 1 dose by inhalation twice daily budesonide (PULMICORT) 1 mg/2 mL nebulizer solution INHALE 1 VIAL VIA NEBULIZER TWICE A DAY 0 04/27/2019 Active take 1 mL by inhalation twice da sarbjit Pulmicort 0.5 MG/2ML 1 mL Inhalation Twice a day Active Comment on above: INHALE 1 VIAL VIA NE BULIZER TWICE A DAY Budesonide / formoterol (1 source) Corticosteroid, beta2-Adrenergic Agonist End: 07-02-19 22 take 2 puff(s) by inhalation twice daily budesonide-formotero l (SYMBICORT) 160-4.5 mcg/actuation inhaler Inhale 2 Puffs as instructed twice daily. 0 07/01/2021 Discontinued (Discontinued by another Health Care Provider) Comment on above: Inhale 2 Puffs as in structed twice daily. cetirizine hydrochloride 10 mg oral capsule (18 sources) Histamine-1 Receptor Antagonist Cetirizine 10 mg cap Take by mouth. 0 Active take [facility]four [facility] Cetirizine HCl 10 MG 1 tablet Orally Onc e a day Active Comment on above: Take by mouth. docusate sodium 50 mg / sennosides, fdc 8.6 mg oral tablet (15 sources) Start: 05-25-2018 take 2 tablets by mouth every twelve hours as needed senna-docusate (SENOKOT-S) 8.6-50 mg per tablet Take 2 tablets by mouth twice daily as needed. 100 tablet 1 05/25/2018 Active Comment on above: Take 2 tablets by mo [facility] twice daily as needed. ipratropium/albuter ol sulfate (DUONEB INHALATION) (15 sources) ipratropium/albu terol sulfate (DUONEB INHALATION) Inhale as instructed. 0 Active Comment on above: Inhale as instructed . iv contrast (will be provided with radiology test) (20 sources) Start: 11-27-2022 End: 11-28-2022 iv contrast (will be provided with radiology test) CT Chest W -Inject, intravenously, once for 1 dose.No IV access, insert saline lock prior to the beginning of sedation, infusion, injection of imaging exam. Discontinue saline lock post exam. If Pt. has a central line or IVAD, may access for administration according to line specific nursing protocol. Once exam is complete flush line and de-access according to line specific nursing protocol in the CT contrast administration guidelines link. 1 Each 0 11/27/2022 11/28/2022 Start: 07-01-2021 End: 04-28-2022 iv contrast (will be provide d with radiology test) Indications: Non-small cell cancer of left lung (HCC) CT Chest W -Inject, intravenously, once for 1 dose.No IV access, insert saline lock prior to the beginning of sedation, infusion, injection of imaging exam. Discontinue saline lock post exam. If Pt. has a central line or IVAD, may access for administration according to line specific nursing protocol. Once exam is complete flush line and de-access according to line specific nursing protocol in the CT contrast administration guidelines link. 1 Each 0 07/01/2021 04/28/2022 Discontinued (Course of therapy completed) Start: 07-01-2021 iv contrast (w ill be provided with radiology test) Indications: Non-small cell cancer of left lung (HCC) CT Chest W -Inject, intravenously, once for 1 dose.No IV access, insert saline lock prior to the beginning of sedation, infusion, injection of imaging exam. Discontinue saline lock post exam. If Pt. has a central line or IVAD, may access for administration according to line specific nursing protocol. Once exam is complete flush line and de-access according to line specific nursing protocol in the CT contrast administration guidelines link. 1 Each 0 07/01/2021 Active Start: 06-07-2020 End: 04-28-2022 iv contrast (will be provide d with radiology test) CT Chest W -Inject, intravenously, once for 1 dose.No IV access, insert saline lock prior to the beginning of sedation, infusion, injection of imaging exam. Discontinue saline lock post exam. If Pt. has a central line or IVAD, may access for administration according to line specific nursing protocol. Once exam is complete flush line and de-access according to line specific nursing protocol in the CT contrast administration guidelines link. 1 Each 0 06/07/2020 04/28/2022 Discontinued (Course of therapy completed) Start: 06-07-2020 iv contrast (w ill be provided with radiology test) CT Chest W -Inject, intravenously, once for 1 dose.No IV access, insert saline lock prior to the beginning of sedation, infusion, injection of imaging exam. Discontinue saline lock post exam. If Pt. has a central line or IVAD, may access for administration according to line specific nursing protocol. Once exam is complete flush line and de-access according to line specific nursing protocol in the CT contrast administration guidelines link. 1 Each 0 06/07/2020 Active Start: 11-25-2018 End: 04-28-2022 iv contrast (will be provide d with radiology test) CT Chest W -Inject, intravenously, once for 1 dose.No IV access, insert saline lock prior to the beginning of sedation, infusion, injection of imaging exam. Discontinue saline lock post exam. If Pt. has a central line or IVAD, may access for administration according to line specific nursing protocol. Once exam is complete flush line and de-access according to line specific nursing protocol in the CT contrast administration guidelines link. 1 Each 0 11/25/2018 04/28/2022 Discontinued (Course of therapy completed) Start: 11-25-2018 iv contrast (w ill be provided with radiology test) CT Chest W -Inject, intravenously, once for 1 dose.No IV access, insert saline lock prior to the beginning of sedation, infusion, injection of imaging exam. Discontinue saline lock post exam. If Pt. has a central line or IVAD, may access for administration according to line specific nursing protocol. Once exam is complete flush line and de-access according to line specific nursing protocol in the CT contrast administration guidelines link. 1 Each 0 11/25/2018 Active Comment on above: CT Chest W -Inject, intravenously, once for 1 dose.No IV access, insert saline lock prior to the beginning of sedation, infusion, injection of imaging exam. Discontinue saline lock post exam. If Pt. has a central line or IVAD, may access for administration according to line specific nursing protocol. Once exam is complete flush line and de-access according to line specific nursing protocol in the CT contrast administration guidelines link. montelukast 10 mg oral tablet (18 sources) Leukotriene Receptor Antagonist Start: 10-29-19 19 take 1 tablet by mouth once daily at bedtime montelukast (SINGULAIR) 10 mg tablet Take 10 mg by mouth daily at bedtime. 11 10/28/2018 Active Comment on above: Take 10 mg by mouth daily at bedtime. 10 actuat olodaterol 0.0025 mg/actuat / tiotropium 0.0025 mg/actuat inhalation spray (18 sources) Anticholinergic, beta2-Adrenergic Agonist Start: 11-02-19 STIOLTO RESPIMAT 2.5-2.5 mcg/actuation mist TAKE 2 PUFFS BY MOUTH EVERY DAY 12 11/01/2018 Active Stiolto Respimat 2.5-2.5 MCG/ACT 2 puffs Inhalation Once a day Active Comment on above: TAKE 2 PUFFS BY MOUT H EVERY DAY theophylline 400 mg extended release oral capsule (18 sources) Methylxanthine Start: 02-03-20 take 1 capsule by mouth once daily, then take 1 capsule by mouth every twenty-four hours Theophylline SR (MI-24) 400 mg 24 hr capsule Take 400 mg by mouth once daily. 12 02/02/2018 Active Start: 02-02-2018 take 1 capsule by mo uth once daily MI-24 200 mg 24 hr capsule Take 200 mg by mouth once daily. 12 02/02/2018 Active Comment on above: Take 200 mg by mouth once daily. Take 400 mg by mouth once daily. Problems Active Problems Problem Classification Problem Date Documented Date Episodic/Chronic Acute bronchitis (3 sources) Acute bronchitis, unspecified; Translations: [Acute bronchitis due to other specified organisms] Onset: 09-02-2022 Episodic Allergic reactions (1 source) Allergy status to other antibiotic agents status; Translations: [ALLERGY STATUS OTH ANTIBIOTIC AGENT] Onset: 09-09-2022 Episodic Bacterial infection; unspecified site (1 source) Pseudomonas (aeruginosa) (mallei) (pseudomallei) as the cause of diseases classified elsewhere; Translations: [PSEUDOMONAS CAUSE OF DZ CLASS ELSW] Onset: 09-09-2022 Episodic Cancer of bronchus; lung (20 sources) Non-small cell lung cancer; Translations: [Malignant neoplasm of unspecified part of left bronchus or lung] Onset: 04-07-2018 Chronic Cancer of bronchus; lung (6 sources) History of malignant neoplasm of thoracic cavity structure; Translations: [Personal history of other malignant neoplasm of bronchus and lung] Onset: 09-09-2022 Episodic Chronic obstructive pulmonary disease and bronchiectasis (20 sources) Centrilobular emphysema; Translations: [Centriacinar emphysema] Onset: 03-02-2018 03-02-2018 Chronic Diabetes mellitus without complication (1 source) Hyperglycemia, unspecified; Translations: [HYPERGLYCEMIA UNSPECIFIED] Onset: 09-09-2022 Episodic E Codes: Adverse effects of medical drugs (1 source) Adverse effect of glucocorticoids and synthetic analogues, initial encounter; Translations: [ADVRS EFF GLUCOCORT SYN ANALOG INIT] Onset: 09-09-2022 Episodic Fluid and electrolyte disorders (1 source) Hypokalemia; Translations: [HYPOKALEMIA] Onset: 09-09-2022 Episodic Mycoses (2 sources) Pneumonia in aspergillosis; Translations: [Aspergillosis, unspecified] Onset: 09-09-2022 Episodic Other aftercare (1 source) intermission coordinator (current) use of systemic steroids; Translations: [ALF USE OF SYSTEMIC STEROIDS] Onset: 09-09-2022 Episodic Other aftercare (1 source) intermission coordinator (current) use of inhaled steroids; Translations: [ALF USE OF INHALED STEROIDS] Onset: 09-09-2022 Episodic Other aftercare (1 source) Other group home (current) drug therapy; Translations: [OTH ALF CURRENT DRUG THERAPY] Onset: 09-09-2022 Episodic Other lower respiratory disease (1 source) Solitary pulmonary nodule; Translations: [Solitary pulmonary nodule] Onset: 03-02-2018 Episodic Other lower respiratory disease (2 sources) Lung mass; Translations: [Other nonspecific abnormal finding of lung field] Episodic Other lower respiratory disease (1 source) Nodule of lung; Translations: [Solitary pulmonary nodule] Episodic Other lower respiratory disease (1 source) Personal history of pneumonia (recurrent); Translations: [PERSONAL HX OF PNEUMONIA RECURRENT] Onset: 09-09-2022 Episodic Other upper respiratory disease (1 source) Bronchiolar disease; Translations: [Other diseases of bronchus, not elsewhere classified] Episodic Respiratory failure; insufficiency; arrest (adult) (16 sources) Chronic respiratory failure with hypoxia; Translations: [Chronic hypoxemic respiratory failure] Onset: 03-02-2018 03-02-2018 Chronic Respiratory failure; insufficiency; arrest (adult) (1 source) Acute respiratory failure with hypoxia; Translations: [ACUTE RESPIRATORY FAIL W/HYPOXIA] Onset: 09-09-2022 Episodic Screening and history of mental health and substance abuse codes (1 source) Personal history of nicotine dependence; Translations: [PERSONAL HISTORY OF NICOTINE DEPEND] Onset: 09-09-2022 Episodic Septicemia (except in labor) (1 source) Other specified sepsis; Translations: [OTHER SPECIFIED SEPSIS] Onset: 09-09-2022 Episodic Unclassified (2 sources) Chest pain, unspecified / R07.9(ICD-9) Onset: 03-24-2017 Unclassified (1 source) Other forms of dyspnea / R06.09(ICD-9) Onset: 03-24-2017 Unclassified (4 sources) CONTACT W/AND (SUSP) EXPOS COVID-19; Translations: [CONTACT W/AND (SUSP) EXPOS COVID-19] Onset: 04-11-2022 Unclassified (1 source) COUGH, UNSPECIFIED; Translations: [COUGH, UNSPECIFIED] Onset: 04-11-2022 Urinary tract infections (1 source) Urinary tract infection, site not specified; Translations: [UTI SITE NOT SPECIFIED] Onset: 09-09-2022 Episodic Viral infection (1 source) COVID-19; Translations: [COVID-19] Onset: 12-12-2021 Past or Other Problems Problem Classification Problem Date Documented Da te Episodic/Chronic Neoplasms of unspecified nature or uncertain behavior (4 sources) Neoplasm of lung ; Translations: [Neoplasm of unspecified behavior of respiratory system] Onset: 03-07-2022 Episodic Nonspecific chest pain (1 source) Chest pain, unspecified; Translations: [Chest pain, unspecified] Onset: 03-24-2017 Episodic Other lower respiratory disease (15 sources) Solitary nodule of lung; Translations: [Solitary pulmonary nodule] Onset: 03-02-2018 03-02-2018 Episodic Other lower respiratory disease (2 sources) Other nonspecific abnormal finding of lung field; Translations: [Lung mass] Onset: 04-24-2022 Episodic Other screening for suspected conditions (not mental disorders or infectious disease) (9 sources) Gross pathology - abnormality; Translations: [Abnormal histological findings in specimens from other organs, systems and tissues] Onset: 05-23-2022 Episodic Other upper respiratory disease (1 source) Nasal congestion; Translations: [NASAL CONGESTION] Onset: 04-11-2022 Episodic Other upper respiratory disease (1 source) Other diseases of bronchus, not elsewhere classified; Translations: [Bronchiolar disease] Onset: 05-09-2022 Episodic Unclassified (1 source) CONTACT W/AND (SUSP) EXPOS COVID-19; Translations: [CONTACT W/AND (SUSP) EXPOS COVID-19] Onset: 04-08-2022 Results Test Name Value Interpretation Reference Range Facility CNOVon 11-27-2022 CNOV Office Visit (RADTSA ) PHOEBE GUERRERO ([id number]) 1960 F Date Time Provider Department 11/27/22 10:30 AM ABDI ISRAEL During your visit today, we recorded the following information about you: Temperature Pulse Respiration Blood pressure 96 degrees 110/minute 20/minute 132/82 Weight 45.2 kg Abdi Israel MD 12/09/2022 9:33 PM Signed Radiation Oncology - Follow Up Note PATIENT NAME: PHOEBE Guerrero PATIENT DIAGNOSIS/PATIENT IDENTIFICATION: Ms. Guerrero is a 62-year-old woman with severe COPD, who is diagnosed with Stage IA3, [id number], non-small cell lung cancer arising from a nodule in the left upper lobe of the lung adjacent to the aortic arch. Given her severe COPD/emphysema requiring supplemental oxygen and her other medical comorbidities, she was not felt to be a surgical candidate and opted for definitive non-operative management of her early stage lung cancer with stereotactic body radiation therapy (SBRT) which she completed on 05/14/2018 (5000 cGy in 5 fractions). INTERVAL HISTORY/ROS: Ms. Guerrero returns to clinic today for routine follow-up approximately four and a half years after the completion of her radiation treatments and six months since her last visit on 06/02/2022. In the interim, he had multiple hospitalizations for COPD exacerbation with CT imaging on 09/24/2022 from her most recent admission showing improvement in the area of consolidation previously concerning for fungal infection and no evidence of disease progression in the treated left upper lobe lung nodule. Radiation changes were noted with no concerning lymphadenopathy. Today she notes she is recovering from her most recent COPD exacerbation hospitalization from September and feels that her breathing is now close to baseline. She has been following up with pulmonary therapy at [facility] and with her cross tie maker Dr. Drivre and using her nebulizers. She remains on supplemental oxygen at 2 L/min via nasal cannula and is not requiring the use of the rescue inhaler at this time. She denies any hemoptysis or chest pain or difficulty swallowing. She endorses stable energy with fair appetite and some decreased weight and good hydration. She otherwise denies any recent fevers, chills, headaches, difficulty with speech/swallowing, chest pain/palpitations, abdominal pain, nausea, vomiting, change in bowel/urinary habits, difficulty with gait/balance, recent falls, etc. The remainder of the review of systems was performed and was otherwise noncontributory. ALLERGIES ALLERGIES Allergen Reactions Levoquin [Levofloxa* Unknown Tendonitis but can take avalox MEDICATIONS: Current Outpatient Medications: budesonide (PULMICORT) 1 mg/2 mL nebulizer solution STIOLTO RESPIMAT 2.5-2.5 mcg/actuation mist montelukast (SINGULAIR) 10 mg tablet ipratropium/albuterol sulfate (DUONEB INHALATION) senna-docusate (SENOKOT-S) 8.6-50 mg per tablet albuterol (PROVENTIL) 2.5 mg/0.5 mL nebulizar solution PEDIATRIC ASTHMA Cetirizine 10 mg cap MI-24 200 mg 24 hr capsule PHYSICAL EXAM: GENERAL: middle-aged woman sitting in chair in no acute distress. VITALS: BP 132/82 Pulse 110 Temp 96 Resp 20 Wt 99 lb 9.6 oz (45.2kg) SpO2 89% KPS: 70 HEENT: NC/AT, anicteric sclera HEART: S1S2 LUNGS: non-labored breathing ABDOMEN: soft MUSCULOSKELETAL: no peripheral edema, moves all extremities. NEURO: no focal deficit; AANDO X3. RADIOLOGIC DATA: CT Chest (09/24/2022) ASSESSMENT AND PLAN: Ms. Guerrero is a 62-year-old woman with severe COPD, who is diagnosed with Stage IA3, [id number], non-small cell lung cancer arising from a nodule in the left upper lobe of the lung adjacent to the aortic arch. Given her severe COPD/emphysema requiring supplemental oxygen and her other medical comorbidities, she was not felt to be a surgical candidate and opted for definitive non-operative management of her early stage lung cancer with stereotactic body radiation therapy (SBRT) which she completed on 05/14/2018 (5000 cGy in 5 fractions). Ms. Guerrero is doing well clinically from a radiation and lung cancer standpoint approximately 4-1/2 years out from the completion of her SBRT treatments to the left chest. She however has had multiple COPD exacerbations and hospital admissions since her last visit [address] imaging from 09/24/2022 during her last admission shows no concern for disease progression locally or elsewhere in the chest. She will follow with her cross tie maker Dr. Driver to optimize her respiratory function and I will plan to see her back in approximately [address] of the chest. The patient is aware to contact the clinic in the interim should any questions or concerns arise. Thank you for allowing us to participate in the care of this patient. Signed by: Abdi Israel MD I spent a total o (more content not included)... [facility] Telephone (HEMTSA) PHOEBE GUERRERO Liborio ([id number]) 1960 F Date Time Provider Department 11/18/22 CED VICTORIA During your visit today, we recorded the following information about you: Ced Victoria RN 11/18/2022 1:43 PM Signed Pt called for CT 11/19/22. She reports CT completed 09/24/22 at [facility]. CT chest verified and will send images/report. LORENZO: Would you like to cancel CT? Please advise LUCIE Baer Saju, MD 11/18/2022 2:11 PM Signed Yes, please cancel CT tomorrow. In addition to the images, please request any office notes from Dr. Kenyon as well as her cross tie maker. Thanks! Ced Park RN 11/18/2022 2:50 PM Signed Pt notified, CT canceled. Katerina working on records from Dr Kenyon and Dr Driver. Images/report being pushed from [facility]. LUCIE Baer Ariana, LPN 11/18/2022 3:33 PM Signed FYI--Dr. Driver's progress note is available in Care Everywhere. Dr. Kenyon's office note to be faxed over per his office. Julisa Pressley LPN Allergies As of Date: 11/18/2022 Noted Allergy Reaction LEVOQUIN (LEVOFLOXACIN) 03/02/2018 16 - Unknown Comments: Tendonitis but can take avalox Date Reviewed: 06/02/2022 Reviewed by: Silvia Lomax, LUCIE - Fully Assessed Reason for Visit: Appointment [[id number]] Prescriptions as of 11/19/2022 - budesonide (PULMICORT) 1 mg/2 mL nebulizer solution INHALE 1 VIAL VIA NEBULIZER TWICE A DAY - STIOLTO RESPIMAT 2.5-2.5 mcg/actuation mist TAKE 2 PUFFS BY MOUTH EVERY DAY - montelukast (SINGULAIR) 10 mg tablet Take 10 mg by mouth daily at bedtime. - ipratropium/albuterol sulfate (DUONEB INHALATION) Inhale as instructed. - senna-docusate (SENOKOT-S) 8.6-50 mg per tablet Take 2 tablets by mouth twice daily as needed. - albuterol (PROVENTIL) 2.5 mg/0.5 mL nebulizar solution PEDIATRIC ASTHMA Inhale 2.5-5 mg as instructed as directed. - Cetirizine 10 mg cap Take by mouth. - MI-24 200 mg 24 hr capsule Take 200 mg by mouth once daily. Problem List As Of Date 11/18/2022 Noted Resolved Lung nodule, solitary [R91.1] 03/02/2018 Centrilobular emphysema (HCC) [J43.2] 03/02/2018 Chronic respiratory failure with hypoxia (HCC) *03/02/2018 Non-small cell cancer of left lung (HCC) [C34.9*04/07/2018 Encounter Status:Closed by CED VICTORIA on 11/19/22 Normal [facility] CULTURE BLOODon 09-07-2022 Microscopic examination of blood, culture Culture Observations: Aerobic bottle positive; BCID=Staphylococcus Epidermidis Culture Observations: METHICILLIN RESISTANT STAPH EPIDERMIDIS ISOLATED. PLEASE FOLLOW APPROPRIATE ISOLATION PROCEDURES. Culture Observations: NO GROWTH AT 5 DAYS ANAEROBIC BOTTLE. Isolate 1 Staphylococcus Epidermidis Growth of ORGANISM 1 Staphylococcus Epidermidis ANTIBIOTIC M.I.C RX STATUS Beta-Lactamase Pos POS F Cefoxitin Screen Pos POS F Benzylpenicillin >=0.5 R F Oxacillin >=4 R F Ciprofloxacin <=0.5 S F Levofloxacin <=0.12 S F Inducible Clindamycin Resistance Pos POS F Erythromycin >=8 R F Clindamycin <=0.25 R F Quinupristin/Dalfopris tin <=0.25 S F Linezolid 1 S F Vancomycin 1 S F Tetracycline 2 S F Rifampicin <=0.5 S F Trimethoprim/Sulfameth oxazole 20 S F Normal [facility] Comment on above: Performed By: #### B [id number] #### [facility] [address] [place] [address] Dr. Geri Pradhan CBC AUTO DIFFon 09-05-2022 BASO # 0.0 103/ul Normal 0.0-0.1 [facility] Comment on above: Performed By: #### C BC #### [facility] [address] [place] [address] Dr. Geri Pradhan Basophils/100 WBC (Bld) 0.2 % Normal 0.2-2.0 [facility] Comment on above: Performed By: #### C BC #### [facility] [address] [address] [address] Geri Pradhan EO # 0.0 103/ul Normal 0.0-0.7 [facility] Comment on above: Performed By: #### C BC #### [facility] [address] [address] [address] Geri Pradhan Eosinophils/100 WBC (Bld) 0.0 % Critically low 0.9-7.0 [facility] Comment on above: Performed By: #### C BC #### [facility] [address] [place] [address] Dr. Geri Pradhan Erythrocyte distribution width (RBC) [Ratio] 13.8 % Normal 11.0-15.0 [facility] Comment on above: Performed By: #### C BC #### [facility] [address] [place] [address] Dr. Geri Pradhan Hematocrit (Bld) [Volume fraction] 38.8 % Normal 36.0-48.0 [facility] Comment on above: Performed By: #### C BC #### [facility] [address] [place] [address] Dr. Geri Pradhan Hemoglobin (Bld) [Mass/Vol] 11.7 g/dL Critically low 12.0-16.0 [facility] Comment on above: Performed By: #### C BC #### [facility] [address] [place] [address] Dr. Geri Pradhan IG # 0.27 10e3/ul Critically high 0.00-0.03 [facility] Comment on above: Performed By: #### C BC #### [facility] [address] [place] [address] Dr. Geri Pradhan IG % 2.9 % Critically high 0.0-0.5 [facility] Comment on above: Performed By: #### C BC #### [facility] [address] [place] [address] Dr. Geri Pradhan LYMPH # 0.4 103/ul Critically low 1.2-3.8 [facility] Comment on above: Performed By: #### C BC #### [facility] [address] [place] [address] Dr. Geri Pradhan Lymphocytes/100 WBC (Bld) 4.4 % Critically low 20.5-60.0 [facility] Comment on above: Performed By: #### C BC #### [facility] [address] [place] [address] Dr. Geri Pradhan MANUAL DIFF REQ NO Normal [facility] Comment on above: Performed By: #### C BC #### [facility] [address] [address] [address] Geri Pradhan MCH (RBC) [Entitic mass] 26.8 pg Normal 26.7-34.0 [facility] Comment on above: Performed By: #### C BC #### [facility] [address] [place] [address] Dr. Geri Pradhan MCHC (RBC) [Mass/Vol] 30.2 g/dL Normal 29.9-35.2 [facility] Comment on above: Performed By: #### C BC #### [facility] [address] [place] [address] Dr. Geri Pradhan MCV (RBC) [Entitic vol] 88.8 fL Normal 81.0-99.0 [facility] Comment on above: Performed By: #### C BC #### [facility] [address] [place] [address] Dr. Geri Pradhan MONO # 0.3 103/ul Normal 0.3-0.8 [facility] Comment on above: Performed By: #### C BC #### [facility] [address] [place] [address] Dr. Geri Pradhan Monocytes/100 WBC (Bld) 3.6 % Normal 1.7-12.0 [facility] Comment on above: Performed By: #### C BC #### [facility] [address] [place] [address] Dr. Geri Pradhan NEUT # 8.2 103/ul Critically high 1.4-6.5 [facility] Comment on above: Performed By: #### C BC #### [facility] [address] [place] [address] Dr. Geri Pradhan Neutrophils/100 WBC (Bld) 88.9 % Critically high 43.0-75.0 [facility] Comment on above: Performed By: #### C BC #### [facility] [address] [place] [address] Dr. Geri Pradhan Platelet mean volume (Bld) [Entitic vol] 9.1 fL Critically low 9.5-13.5 [facility] Comment on above: Performed By: #### C BC #### [facility] [address] [place] [address] Dr. Geri Pradhan PLT 314 103/ul Normal 150-450 [facility] Comment on above: Performed By: #### C BC #### [facility] [address] [place] [address] Dr. Geri Pradhan RBC 4.37 106/ul Normal 4.20-5.40 [facility] Comment on above: Performed By: #### C BC #### [facility] [address] [place] [address] Dr. Geri Pradhan WBC 9.2 103/ul Normal 4.0-11.0 [facility] Comment on above: Performed By: #### C BC #### [facility] [address] [place] [address] Dr. Geri Pradhan PROF 14(COMP METB)on 023 Albumin [Mass/Vol] 2.7 g/dL Critically low 3.4-5.0 [facility] Comment on above: Performed By: #### Gerry INGRAM CMP #### [facility] [address] [place] [address] Dr. Geri Pradhan Albumin/Globulin [Mass ratio] 0.7 {ratio} Normal [facility] Comment on above: Performed By: #### Gerry INGRAM CMP #### [facility] [address] [place] [address] Dr. Geri Pradhan ALP [Catalytic activity/Vol] 65 U/L Normal 46-116 [facility] Comment on above: Performed By: #### Gerry INGRAM CMP #### [facility] [address] [address] [address] Geri Pradhan ALT [Catalytic activity/Vol] 23 U/L Normal 14-59 [facility] Comment on above: Performed By: #### Gerry INGRAM, CMP #### [facility] [address] [place] [address] Dr. Geri Pradhan Anion gap [Moles/Vol] 2.0 mmol/L Normal [facility] Comment on above: Performed By: #### Gerry INGRAM, CMP #### [facility] [address] [place] [address] Dr. Geri Pradhan AST [Catalytic activity/Vol] 17 U/L Normal 15-37 [facility] Comment on above: Performed By: #### Gerry INGRAM, CMP #### [facility] [address] [place] [address] Dr. Geri Pradhan Bilirubin [Mass/Vol] 0.1 mg/dL Critically low 0.2-1.0 [facility] Comment on above: Performed By: #### Gerry INGRAM, CMP #### [facility] [address] [place] [address] Dr. Geri Pradhan Calcium [Mass/Vol] 9.0 mg/dL Normal 8.5-10.1 [facility] Comment on above: Performed By: #### Gerry INGRAM, CMP #### [facility] [address] [place] [address] Dr. Geri Pradhan Chloride [Moles/Vol] 99 mmol/L Normal 98-107 [facility] Comment on above: Performed By: #### Gerry INGRAM, CMP #### [facility] [address] [place] [address] Dr. Geri Pradhan CO2 [Moles/Vol] 45.3 mmol/L Critically high 21.0-32.0 [facility] Comment on above: Performed By: #### Gerry INGRAM, CMP #### [facility] [address] [place] [address] Dr. Geri Pradhan Creatinine [Mass/Vol] 0.50 mg/dL Critically low 0.55-1.02 [facility] Comment on above: Performed By: #### Gerry INGRAM, CMP #### [facility] [address] [address] [address] Geri Pradhan EGFR-AF JAPANESE >60 Normal >=60 [facility] Comment on above: Performed By: #### Gerry INGRAM, CMP #### [facility] [address] [address] [address] Geri Pradhan EGFR-NON AF JAPANESE >60 Normal >=60 [facility] Comment on above: Performed By: #### Gerry INGRAM, CMP #### [facility] [address] [address] [address] Geri Pradhan Globulin (S) [Mass/Vol] 3.7 g/dL Normal [facility] Comment on above: Performed By: #### Gerry INGRAM, CMP #### [facility] [address] [address] [address] Geri Pradhan Glucose [Mass/Vol] 180 mg/dL Critically high 74-106 [facility] Comment on above: Performed By: #### Gerry INGRAM, CMP #### [facility] [address] [address] [address] Geri Pradhan Potassium [Moles/Vol] 4.3 mmol/L Normal 3.5-5.1 [facility] Comment on above: Performed By: #### Gerry INGRAM, CMP #### [facility] [address] [address] [address] Geri Pradhan Protein [Mass/Vol] 6.4 g/dL Normal 6.4-8.2 [facility] Comment on above: Performed By: #### Gerry INGRAM, CMP #### [facility] [address] [address] [address] Geri Pradhan Sodium [Moles/Vol] 142 mmol/L Normal 136-145 [facility] Comment on above: Performed By: #### Gerry INGRAM, CMP #### [facility] [address] [address] [address] Geri Pradhan Urea nitrogen [Mass/Vol] 13.0 mg/dL Normal 7.0-18.0 [facility] Comment on above: Performed By: #### T JUAN JOSE, CMP #### [facility] [address] [address] [address] Geri Pradhan Urea nitrogen/Creatinine [Mass ratio] 26.0 mg/mg Normal [facility] Comment on above: Performed By: #### Gerry INGRAM CMP #### [facility] [address] [place] [address] Dr. Geri Pradhan THEOPHYLLINEon 09-05-2022 THEOPHYLLINE <2.0 Critically low 10.0-20.0 [facility] Comment on above: Performed By: #### Gerry INGRAM CMP #### [facility] [address] [place] [address] Dr. Geri Pradhan CBC AUTO DIFFon 09-04-2022 BASO # 0.0 103/ul Normal 0.0-0.1 [facility] Comment on above: Performed By: #### R SPLUS #### [facility] [address] [place] [address] Dr. Geri Pradhan Basophils/100 WBC (Bld) 0.1 % Critically low 0.2-2.0 [facility] Comment on above: Performed By: #### R SPLUS #### [facility] [address] [place] [address] Dr. Geri Pradhan EO # 0.0 103/ul Normal 0.0-0.7 [facility] Comment on above: Performed By: #### R SPLUS #### [facility] [address] [place] [address] Dr. Geri Pradhan Eosinophils/100 WBC (Bld) 0.0 % Critically low 0.9-7.0 [facility] Comment on above: Performed By: #### R SPLUS #### [facility] [address] [address] [address] Geri Pradhan Erythrocyte distribution width (RBC) [Ratio] 13.4 % Normal 11.0-15.0 [facility] Comment on above: Performed By: #### R SPLUS #### [facility] [address] [place] [address] Dr. Geri Pradhan Hematocrit (Bld) [Volume fraction] 42.8 % Normal 36.0-48.0 [facility] Comment on above: Performed By: #### R SPLUS #### [facility] [address] [address] [address] Geri Pradhan Hemoglobin (Bld) [Mass/Vol] 12.8 g/dL Normal 12.0-16.0 [facility] Comment on above: Performed By: #### R SPLUS #### [facility] [address] [place] [address] Dr. Geri Pradhan IG # 0.25 10e3/ul Critically high 0.00-0.03 [facility] Comment on above: Performed By: #### R SPLUS #### [facility] [address] [place] [address] Dr. Geri Pradhan IG % 2.0 % Critically high 0.0-0.[address] [facility] Comment on above: Performed By: #### R SPLUS #### [facility] [address] [place] [address] Dr. Geri Pradhan LYMPH # 0.4 103/ul Critically low 1.2-3.8 [facility] Comment on above: Performed By: #### R SPLUS #### [facility] [address] [place] [address] Dr. Geri Pradhan Lymphocytes/100 WBC (Bld) 3.6 % Critically low 20.5-60.0 [facility] Comment on above: Performed By: #### R SPLUS #### [facility] [address] [place] [address] Dr. Geri Pradhan MANUAL DIFF REQ NO Normal [facility] Comment on above: Performed By: #### R SPLUS #### [facility] [address] [place] [address] Dr. Geri Pradhan MCH (RBC) [Entitic mass] 26.8 pg Normal 26.7-34.0 [facility] Comment on above: Performed By: #### R SPLUS #### [facility] [address] [place] [address] Dr. Geri Pradhan MCHC (RBC) [Mass/Vol] 29.9 g/dL Normal 29.9-35.2 [facility] Comment on above: Performed By: #### R SPLUS #### [facility] [address] [address] [address] Geri Pradhan MCV (RBC) [Entitic vol] 89.5 fL Normal 81.0-99.0 [facility] Comment on above: Performed By: #### R SPLUS #### [facility] [address] [place] [address] Dr. Geri Pradhan MONO # 0.2 103/ul Critically low 0.3-0.8 [facility] Comment on above: Performed By: #### R SPLUS #### [facility] [address] [place] [address] Dr. Geri Pradhan Monocytes/100 WBC (Bld) 1.9 % Normal 1.7-12.0 [facility] Comment on above: Performed By: #### R SPLUS #### [facility] [address] [place] [address] Dr. Geri Pradhan NEUT # 11.4 103/ul Critically high 1.4-6.5 [facility] Comment on above: Performed By: #### R SPLUS #### [facility] [address] [place] [address] Dr. Geri Pradhan Neutrophils/100 WBC (Bld) 92.4 % Critically high 43.0-75.0 [facility] Comment on above: Performed By: #### R SPLUS #### [facility] [address] [place] [address] Dr. Geri Pradhan Platelet mean volume (Bld) [Entitic vol] 8.9 fL Critically low 9.5-13.5 [facility] Comment on above: Performed By: #### R SPLUS #### [facility] [address] [place] [address] Dr. Geri Pradhan PLT 350 103/ul Normal 150-450 [facility] Comment on above: Performed By: #### R SPLUS #### [facility] [address] [place] [address] Dr. Geri Pradhan RBC 4.78 106/ul Normal 4.20-5.40 [facility] Comment on above: Performed By: #### R SPLUS #### [facility] [address] [address] [address] Geri Pradhan WBC 12.3 103/ul Critically high 4.0-11.0 [facility] Comment on above: Performed By: #### R SPLUS #### [facility] [address] [address] [address] Geri Pradhan POINT OF CARE GLUCOSEon 08-12 Glucose [Mass/Vol] 142 mg/dL Critically high 74-106 [facility] Comment on above: Performed By: #### P OCGLUC #### [facility] [address] [place] [address] Dr. Geri Pradhan Glucose [Mass/Vol] 198 mg/dL Critically high -106 [facility] Comment on above: Performed By: #### Gerry INGRAM CMP #### [facility] [address] [place] [address] Dr. Geri Pradhan Glucose [Mass/Vol] 147 mg/dL Critically high -106 [facility] Comment on above: Performed By: #### Gerry INGRAM CMP #### [facility] [address] [place] [address] Dr. Geri Pradhan PROF 14(COMP METB)on 023 Albumin [Mass/Vol] 2.9 g/dL Critically low 3.4-5.0 [facility] Comment on above: Performed By: #### Gerry INGRAM, CMP #### [facility] [address] [place] [address] Dr. Geri Pradhan Albumin/Globulin [Mass ratio] 0.7 {ratio} Normal [facility] Comment on above: Performed By: #### Gerry INGARM, CMP #### [facility] [address] [place] [address] Dr. Geri Pradhan ALP [Catalytic activity/Vol] 73 U/L Normal 46-116 [facility] Comment on above: Performed By: #### Gerry INGRAM, CMP #### [facility] [address] [place] [address] Dr. Geri Pradhan ALT [Catalytic activity/Vol] 24 U/L Normal 14-59 [facility] Comment on above: Performed By: #### Gerry INGRAM, CMP #### [facility] [address] [place] [address] Dr. Geri Pradhan Anion gap [Moles/Vol] 3.2 mmol/L Normal [facility] Comment on above: Performed By: #### Gerry INGRAM, CMP #### [facility] [address] [place] [address] Dr. Geri Pradhan AST [Catalytic activity/Vol] 17 U/L Normal 15-37 [facility] Comment on above: Performed By: #### Gerry INGRAM CMP #### [facility] [address] [place] [address] Dr. Geri Pradhan Bilirubin [Mass/Vol] 0.1 mg/dL Critically low 0.2-1.0 [facility] Comment on above: Performed By: #### Gerry INGRAM CMP #### [facility] [address] [place] [address] Dr. Geri Pradhan Calcium [Mass/Vol] 9.4 mg/dL Normal 8.5-10.1 [facility] Comment on above: Performed By: #### Gerry INGRAM CMP #### [facility] [address] [place] [address] Dr. Geri Pradhan Chloride [Moles/Vol] 100 mmol/L Normal 98-107 [facility] Comment on above: Performed By: #### Gerry INGRAM, CMP #### [facility] [address] [place] [address] Dr. Geri Pradhan CO2 [Moles/Vol] 43.2 mmol/L Critically high 21.0-32.0 [facility] Comment on above: Performed By: #### Gerry INGRAM, CMP #### [facility] [address] [place] [address] Dr. Geri Pradhan Creatinine [Mass/Vol] 0.52 mg/dL Critically low 0.55-1.02 [facility] Comment on above: Performed By: #### Gerry INGRAM, CMP #### [facility] [address] [address] [address] Geri Pradhan EGFR-AF JAPANESE >60 Normal >=60 [facility] Comment on above: Performed By: #### Gerry INGRAM, CMP #### [facility] [address] [address] [address] Geri Pradhan EGFR-NON AF JAPANESE >60 Normal >=60 [facility] Comment on above: Performed By: #### Gerry INGRAM, CMP #### [facility] [address] [address] [address] Geri Pradhan Globulin (S) [Mass/Vol] 4.2 g/dL Normal [facility] Comment on above: Performed By: #### Gerry INGRAM CMP #### [facility] [address] [address] [address] Geri Pradhan Glucose [Mass/Vol] 138 mg/dL Critically high 74-106 [facility] Comment on above: Performed By: #### Gerry INGRAM, CMP #### [facility] [address] [address] [address] Geri Pradhan Potassium [Moles/Vol] 4.4 mmol/L Normal 3.5-5.1 [facility] Comment on above: Performed By: #### Gerry INGRAM, CMP #### [facility] [address] [place] [address] Dr. Geri Pradhan Protein [Mass/Vol] 7.1 g/dL Normal 6.4-8.2 [facility] Comment on above: Performed By: #### Gerry INGRAM, CMP #### [facility] [address] [place] [address] Dr. Geri Pradhan Sodium [Moles/Vol] 142 mmol/L Normal 136-145 [facility] Comment on above: Performed By: #### Gerry INGRAM, CMP #### [facility] [address] [address] [address] Geri Pradhan Urea nitrogen [Mass/Vol] 15.0 mg/dL Normal 7.0-18.0 [facility] Comment on above: Performed By: #### Gerry INGRAM, CMP #### [facility] [address] [place] [address] Dr. Geri Pradhan Urea nitrogen/Creatinine [Mass ratio] 28.8 mg/mg Normal [facility] Comment on above: Performed By: #### T JUAN JOSE, CMP #### [facility] [address] [place] [address] Dr. Geri Pradhan RESPIRATORY PANEL PLUSon Adenovirus Not detected Normal NOT DETECTED [facility] Comment on above: Performed By: #### R SPLUS #### [facility] [address] [place] [address] Dr. Geri Pradhan B. Parapertusis Not detected Normal NOT DETECTED [facility] Comment on above: Performed By: #### R SPLUS #### [facility] [address] [place] [address] Dr. Geri Joe. Pertussis Not detected Normal NOT DETECTED [facility] Comment on above: Performed By: #### R SPLUS #### [facility] [address] [place] [address] Dr. Geri Pradhan Chlamydia Pneumoniae Not detected Normal NOT DETECTED [facility] Comment on above: Performed By: #### R SPLUS #### [facility] [address] [place] [address] Dr. Geri Pradhan Coronavirus 229E Not detected Normal NOT DETECTED [facility] Comment on above: Performed By: #### R SPLUS #### [facility] [address] [place] [address] Dr. Geri Pradhan Coronavirus HKU1 Not detected Normal NOT DETECTED [facility] Comment on above: Performed By: #### R SPLUS #### [facility] [address] [place] [address] Dr. Geri Pradhan Coronavirus NL63 Not detected Normal NOT DETECTED [facility] Comment on above: Performed By: #### R SPLUS #### [facility] [address] [place] [address] Dr. Geri Pradhan Coronavirus OC43 Not detected Normal NOT DETECTED [facility] Comment on above: Performed By: #### R SPLUS #### [facility] [address] [place] [address] Dr. Geri Pradhan Influenza A H1 Not detected Normal NOT DETECTED [facility] Comment on above: Performed By: #### R SPLUS #### [facility] [address] [place] [address] Dr. Geri Pradhan Influenza A H1 2009 Not detected Normal NOT DETECTED [facility] Comment on above: Performed By: #### R SPLUS #### [facility] [address] [place] [address] Dr. Geri Pradhan Influenza A H3 Not detected Normal NOT DETECTED [facility] Comment on above: Performed By: #### R SPLUS #### [facility] [address] [place] [address] Dr. Geri Pradhan Influenza B Not detected Normal NOT DETECTED [facility] Comment on above: Performed By: #### R SPLUS #### [facility] [address] [place] [address] Dr. Geri Pradhan Metapneumovirus Not detected Normal NOT DETECTED [facility] Comment on above: Performed By: #### R SPLUS #### [facility] [address] [place] [address] Dr. Geri Pradhan Mycoplas. Pneumoniae Not detected Normal NOT DETECTED [facility] Comment on above: Performed By: #### R SPLUS #### [facility] [address] [place] [address] Dr. Geri Pradhan Parainfluenza 1 Not detected Normal NOT DETECTED [facility] Comment on above: Performed By: #### R SPLUS #### [facility] [address] [place] [address] Dr. Geri Pradhan Parainfluenza 2 Not detected Normal NOT DETECTED [facility] Comment on above: Performed By: #### R SPLUS #### [facility] [address] [place] [address] Dr. Geri Pradhan Parainfluenza 3 Detected Abnormal NOT DETECTED [facility] Comment on above: Performed By: #### R SPLUS #### [facility] [address] [place] [address] Dr. Geri Pradhan Parainfluenza 4 Not detected Normal NOT DETECTED [facility] Comment on above: Performed By: #### R SPLUS #### [facility] [address] [place] [address] Dr. Geri Pradhan Rhino/Enterovirus Not detected Normal NOT DETECTED [facility] Comment on above: Performed By: #### R SPLUS #### [facility] [address] [place] [address] Dr. Geri Pradhan RP2 Header 1 RESPIRATORY PANEL: VIRUSES Normal [facility] Comment on above: Performed By: #### R SPLUS #### [facility] [address] [place] [address] Dr. Geri Pradhan RP2 Header 2 RESPIRATORY PANEL: BACTERIA Normal [facility] Comment on above: Performed By: #### R SPLUS #### [facility] [address] [place] [address] Dr. Geri Pradhan RSV Not detected Normal NOT DETECTED [facility] Comment on above: Performed By: #### R SPLUS #### [facility] [address] [place] [address] Dr. Geri Pradhan SARS-CoV-2 (COVID-19) RNA KRUNAL+probe Ql (Unsp spec) Not detected Normal NOT DETECTED [facility] Comment on above: Performed By: #### R SPLUS #### [facility] [address] [place] [address] Dr. Geri Pradhan THEOPHYLLINEon 09-04-2022 THEOPHYLLINE <2.0 Critically low 10.0-20.0 [facility] Comment on above: Performed By: #### T JUAN JOSE, CMP #### [facility] [address] [place] [address] Dr. Geri Pradhan CBC AUTO DIFFon 09-03-2022 BASO # 0.0 103/ul Normal 0.0-0.1 [facility] Comment on above: Performed By: #### P OCGLUC #### [facility] [address] [place] [address] Dr. Geri Pradhan Basophils/100 WBC (Bld) 0.1 % Critically low 0.2-2.0 [facility] Comment on above: Performed By: #### P OCGLUC #### [facility] [address] [address] [address] Geri Pradhan EO # 0.0 103/ul Normal 0.0-0.7 [facility] Comment on above: Performed By: #### P OCGLUC #### [facility] [address] [address] [address] Geri Pradhan Eosinophils/100 WBC (Bld) 0.0 % Critically low 0.9-7.0 [facility] Comment on above: Performed By: #### P OCGLUC #### [facility] [address] [address] [address] Geri Pradhan Erythrocyte distribution width (RBC) [Ratio] 13.0 % Normal 11.0-15.0 [facility] Comment on above: Performed By: #### P OCGLUC #### [facility] [address] [address] [address] Geri Pradhan Hematocrit (Bld) [Volume fraction] 42.1 % Normal 36.0-48.0 [facility] Comment on above: Performed By: #### P OCGLUC #### [facility] [address] [address] [address] Geri Pradhan Hemoglobin (Bld) [Mass/Vol] 12.3 g/dL Normal 12.0-16.0 [facility] Comment on above: Performed By: #### P OCGLUC #### [facility] [address] [address] [address] Geri Pradhan IG # 0.13 10e3/ul Critically high 0.00-0.03 [facility] Comment on above: Performed By: #### P OCGLUC #### [facility] [address] [address] [address] Geri Pradhan IG % 1.2 % Critically high 0.0-0.[address] [facility] Comment on above: Performed By: #### P OCGLUC #### [facility] [address] [address] [address] Geri Pradhan LYMPH # 0.6 103/ul Critically low 1.2-3.8 [facility] Comment on above: Performed By: #### P OCGLUC #### [facility] [address] [address] [address] Geri Pradhan Lymphocytes/100 WBC (Bld) 6.0 % Critically low 20.5-60.0 [facility] Comment on above: Performed By: #### P OCGLUC #### [facility] [address] [address] [address] Geri Pradhan MANUAL DIFF REQ NO Normal [facility] Comment on above: Performed By: #### P OCGLUC #### [facility] [address] [address] [address] Geri Pradhan MCH (RBC) [Entitic mass] 26.0 pg Critically low 26.7-34.0 [facility] Comment on above: Performed By: #### P OCGLUC #### [facility] [address] [place] [address] Dr. Geri Pradhan MCHC (RBC) [Mass/Vol] 29.2 g/dL Critically low 29.9-35.2 [facility] Comment on above: Performed By: #### P OCGLUC #### [facility] [address] [place] [address] Dr. Geri Pradhan MCV (RBC) [Entitic vol] 89.0 fL Normal 81.0-99.0 [facility] Comment on above: Performed By: #### P OCGLUC #### [facility] [address] [address] [address] Geri Pradhan MONO # 0.2 103/ul Critically low 0.3-0.8 [facility] Comment on above: Performed By: #### P OCGLUC #### [facility] [address] [address] [address] Geri Pradhan Monocytes/100 WBC (Bld) 2.0 % Normal 1.7-12.0 [facility] Comment on above: Performed By: #### P OCGLUC #### [facility] [address] [address] [address] Geri Pradhan NEUT # 9.6 103/ul Critically high 1.4-6.[address] [facility] Comment on above: Performed By: #### P OCGLUC #### [facility] [address] [address] [address] Geri Pradhan Neutrophils/100 WBC (Bld) 90.7 % Critically high 43.0-75.0 [facility] Comment on above: Performed By: #### P OCGLUC #### [facility] [address] [address] [address] Geri Pradhan Platelet mean volume (Bld) [Entitic vol] 9.1 fL Critically low 9.5-13.5 [facility] Comment on above: Performed By: #### P OCGLUC #### [facility] [address] [address] [address] Geri Pradhan PLT 302 103/ul Normal 150-450 [facility] Comment on above: Performed By: #### P OCGLUC #### [facility] [address] [address] [address] Geri Pradhan RBC 4.73 106/ul Normal 4.20-5.40 [facility] Comment on above: Performed By: #### P OCGLUC #### [facility] [address] [address] [address] Geri Pradhan WBC 10.6 103/ul Normal 4.0-11.0 [facility] Comment on above: Performed By: #### P OCGLUC #### [facility] [address] [address] [address] Geri Pradhan POINT OF CARE GLUCOSEon 08-12 Glucose [Mass/Vol] 130 mg/dL Critically high 74-106 [facility] Comment on above: Performed By: #### T JUAN JOSE, CMP #### [facility] [address] [address] [address] Geri Pradhan Glucose [Mass/Vol] 217 mg/dL Critically high 74-106 [facility] Comment on above: Performed By: #### T JUAN JOSE, CMP #### [facility] [address] [address] [address] Geri Pradhan Glucose [Mass/Vol] 327 mg/dL Critically high 74-106 [facility] Comment on above: Performed By: #### C VDTBH #### [facility] [address] [address] [address] Geri Pradhan Glucose [Mass/Vol] 146 mg/dL Critically high 74-106 [facility] Comment on above: Performed By: #### T JUAN JOSE, CMP #### [facility] [address] [address] [address] Geri Pradhan Glucose [Mass/Vol] 174 mg/dL Critically high 74-106 [facility] Comment on above: Performed By: #### T JUAN JOSE, CMP #### [facility] [address] [address] [address] Geri Pradhan PROF 14(COMP METB)on 023 Albumin [Mass/Vol] 2.9 g/dL Critically low 3.4-5.0 [facility] Comment on above: Performed By: #### P OCGLUC #### [facility] [address] [place] [address] Dr. Geri Pradhan Albumin/Globulin [Mass ratio] 0.7 {ratio} Normal [facility] Comment on above: Performed By: #### P OCGLUC #### [facility] [address] [address] [address] Geri Pradhan ALP [Catalytic activity/Vol] 74 U/L Normal 46-116 [facility] Comment on above: Performed By: #### P OCGLUC #### [facility] [address] [address] [address] Geri Pradhan ALT [Catalytic activity/Vol] 21 U/L Normal 14-59 [facility] Comment on above: Performed By: #### P OCGLUC #### [facility] [address] [place] [address] Dr. Geri Pradhan Anion gap [Moles/Vol] 4.4 mmol/L Normal [facility] Comment on above: Performed By: #### P OCGLUC #### [facility] [address] [place] [address] Dr. Geri Pradhan AST [Catalytic activity/Vol] 17 U/L Normal 15-37 [facility] Comment on above: Performed By: #### P OCGLUC #### [facility] [address] [address] [address] Geri Pradhan Bilirubin [Mass/Vol] 0.2 mg/dL Normal 0.2-1.0 [facility] Comment on above: Performed By: #### P OCGLUC #### [facility] [address] [address] [address] Geri Pradhan Calcium [Mass/Vol] 9.4 mg/dL Normal 8.5-10.1 [facility] Comment on above: Performed By: #### P OCGLUC #### [facility] [address] [place] [address] Dr. Geri Pradhan Chloride [Moles/Vol] 99 mmol/L Normal 98-107 [facility] Comment on above: Performed By: #### P OCGLUC #### [facility] [address] [address] [address] Geri Pradhan CO2 [Moles/Vol] 42.8 mmol/L Critically high 21.0-32.0 [facility] Comment on above: Performed By: #### P OCGLUC #### [facility] [address] [place] [address] Dr. Geri Pradhan Creatinine [Mass/Vol] 0.55 mg/dL Normal 0.55-1.02 [facility] Comment on above: Performed By: #### P OCGLUC #### [facility] [address] [place] [address] Dr. Geri Pradhan EGFR-AF JAPANESE >60 Normal >=60 [facility] Comment on above: Performed By: #### P OCGLUC #### [facility] [address] [address] [address] Geri Pradhan EGFR-NON AF JAPANESE >60 Normal >=60 [facility] Comment on above: Performed By: #### P OCGLUC #### [facility] [address] [place] [address] Dr. Geri Pradhan Globulin (S) [Mass/Vol] 4.4 g/dL Normal [facility] Comment on above: Performed By: #### P OCGLUC #### [facility] [address] [address] [address] Geri Pradhan Glucose [Mass/Vol] 136 mg/dL Critically high 74-106 [facility] Comment on above: Performed By: #### P OCGLUC #### [facility] [address] [address] [address] Geri Pradhan Potassium [Moles/Vol] 4.2 mmol/L Normal 3.5-5.1 [facility] Comment on above: Performed By: #### P OCGLUC #### [facility] [address] [address] [address] Geri Pradhan Protein [Mass/Vol] 7.3 g/dL Normal 6.4-8.2 [facility] Comment on above: Performed By: #### P OCGLUC #### [facility] [address] [address] [address] Geri Pradhan Sodium [Moles/Vol] 142 mmol/L Normal 136-145 [facility] Comment on above: Performed By: #### P OCGLUC #### [facility] [address] [address] [address] Geri Pradhan Urea nitrogen [Mass/Vol] 14.0 mg/dL Normal 7.0-18.0 [facility] Comment on above: Performed By: #### P OCGLUC #### [facility] [address] [address] [address] Geri Pradhan Urea nitrogen/Creatinine [Mass ratio] 25.5 mg/mg Normal [facility] Comment on above: Performed By: #### P OCGLUC #### [facility] [address] [address] [address] Geri Pradhan THEOPHYLLINEon 09-03-2022 THEOPHYLLINE <2.0 Critically low 10.0-20.0 [facility] Comment on above: Performed By: #### P OCGLUC #### [facility] [address] [address] [address] Geri Pradhan MAGNESIUMon 09-02-2022 Magnesium [Mass/Vol] 2.3 mg/dL Normal 1.8-2.4 [facility] Comment on above: Performed By: #### Gerry INGRAM, CMP #### [facility] [address] [address] [address] Geri Pradhan POINT OF CARE GLUCOSEon 08-12 Glucose [Mass/Vol] 118 mg/dL Critically high 74-106 [facility] Comment on above: Performed By: #### R SPLUS #### [facility] [address] [place] [address] Dr. Geri Pradhan Glucose [Mass/Vol] 263 mg/dL Critically high 74-106 [facility] Comment on above: Performed By: #### R SPLUS #### [facility] [address] [place] [address] Dr. Geri Pradhan Glucose [Mass/Vol] 160 mg/dL Critically high 74-106 [facility] Comment on above: Performed By: #### P OCGLUC #### [facility] [address] [place] [address] Dr. Geri Pradhan PROF CHEM 8 (BAS METB)on Anion gap [Moles/Vol] 5.3 mmol/L Normal [facility] Comment on above: Performed By: #### Gerry INGRAM, CMP #### [facility] [address] [place] [address] Dr. Geri Pradhan Calcium [Mass/Vol] 9.5 mg/dL Normal 8.5-10.1 [facility] Comment on above: Performed By: #### Gerry INGRAM, CMP #### [facility] [address] [place] [address] Dr. Geri Pradhan Chloride [Moles/Vol] 94 mmol/L Critically low 98-107 [facility] Comment on above: Performed By: #### Gerry INGRAM, CMP #### [facility] [address] [place] [address] Dr. Geri Pradhan CO2 [Moles/Vol] 42.5 mmol/L Critically high 21.0-32.0 [facility] Comment on above: Performed By: #### Gerry INGRAM, CMP #### [facility] [address] [address] [address] Geri Pradhan Creatinine [Mass/Vol] 0.66 mg/dL Normal 0.55-1.02 [facility] Comment on above: Performed By: #### Gerry INGRAM, CMP #### [facility] [address] [address] [address] Geri Pradhan EGFR-AF JAPANESE >60 Normal >=60 [facility] Comment on above: Performed By: #### Gerry INGRAM, CMP #### [facility] [address] [address] [address] Geri Pradhan EGFR-NON AF JAPANESE >60 Normal >=60 [facility] Comment on above: Performed By: #### Gerry INGRAM, CMP #### [facility] [address] [address] [address] Geri Pradhan Glucose [Mass/Vol] 183 mg/dL Critically high 74-106 [facility] Comment on above: Performed By: #### Gerry INGRAM, CMP #### [facility] [address] [address] [address] Geri Pradhan Potassium [Moles/Vol] 3.8 mmol/L Normal 3.5-5.1 [facility] Comment on above: Performed By: #### Gerry INGRAM, CMP #### [facility] [address] [address] [address] Geri Pradhan Sodium [Moles/Vol] 138 mmol/L Normal 136-145 [facility] Comment on above: Performed By: #### Gerry INGRAM, CMP #### [facility] [address] [address] [address] Geri Pradhan Urea nitrogen [Mass/Vol] 10.0 mg/dL Normal 7.0-18.0 [facility] Comment on above: Performed By: #### Gerry INGRAM, CMP #### [facility] [address] [address] [address] Geri Pradhan Urea nitrogen/Creatinine [Mass ratio] 15.2 mg/mg Normal [facility] Comment on above: Performed By: #### Gerry INGRAM, CMP #### [facility] [address] [place] [address] Dr. Geri Pradhan THEOPHYLLINEon 09-02-2022 THEOPHYLLINE <2.0 Critically low 10.0-20.0 [facility] Comment on above: Performed By: #### R DUANEUS #### [facility] [address] [place] [address] Dr. Geri Pradhan BLOOD CULTURE ID PANELon A. baumannii Not detected Normal NOT DETECTED [facility] Comment on above: Performed By: #### Gerry INGRAM, CMP #### [facility] [address] [place] [address] Dr. Geri Pradhan Bacteriodes fragilis Not detected Normal NOT DETECTED [facility] Comment on above: Performed By: #### Gerry INGRAM CMP #### [facility] [address] [place] [address] Dr. Geri Pradhan BCID CONTROLS PASSED Normal [facility] Comment on above: Performed By: #### Gerry INGRAM CMP #### [facility] [address] [place] [address] Dr. Geri GARCÍADBTHD BLOOD CULTURE BOTTLE INFORMATION Normal [facility] Comment on above: Performed By: #### Gerry INGRAM CMP #### [facility] [address] [place] [address] Dr. Geri Pradhan BCIDHD1 ANTIMICROBIAL RESISTANCE GENES Normal [facility] Comment on above: Performed By: #### Gerry INGRAM, CMP #### [facility] [address] [place] [address] Dr. Geri GARCÍADHD2 SEE BELOW Normal [facility] Comment on above: Result Comment: Note : Antimicrobial resitance can occur via multiple mechanisms. A Not Detected result for the [employer] antomicrobial resistance gene assays does not indicate antimicrobial susceptibility. Subculturing is required for species identification and susceptibility testing of isolates. Performed By: #### Gerry INGRAM CMP #### [facility] [address] [place] [address] Dr. Geri Pradhan BCIDHD3 Positive Normal [facility] Comment on above: Performed By: #### Gerry INGRAM CMP #### [facility] [address] [place], [place] [id number] Dr. Geri Pradhan BCIDHD4 Negative Normal [facility] Comment on above: Performed By: #### Gerry INGRAM, CMP #### [facility] [address] [address] [address] Geri Pradhan BCIDHD5 YEAST Normal [facility] Comment on above: Performed By: #### Gerry INGRAM, CMP #### [facility] [address] [address] [address] Geri Pradhan Bottle Set: Set 1 Normal [facility] Comment on above: Performed By: #### T JUAN JOSE, CMP #### [facility] [address] [place] [address] Dr. Geri Pradhan Bottle: Aerobic Normal [facility] Comment on above: Performed By: #### Gerry INGRAM, CMP #### [facility] [address] [place] [address] Dr. Geri Pradhan C. neoformans/gattii Not detected Normal NOT DETECTED [facility] Comment on above: Performed By: #### Gerry INGRAM, CMP #### [facility] [address] [place] [address] Dr. Geri Pradhan Milagros albicans Not detected Normal NOT DETECTED [facility] Comment on above: Performed By: #### Gerry INGRAM, CMP #### [facility] [address] [place] [address] Dr. Geri Pradhan Milagros auris Not detected Normal NOT DETECTED [facility] Comment on above: Performed By: #### Gerry INGRAM, CMP #### [facility] [address] [place] [address] Dr. Geri Pradhan Milagros glabrata Not detected Normal NOT DETECTED [facility] Comment on above: Performed By: #### Gerry INGRAM, CMP #### [facility] [address] [place] [address] Dr. Geri Pradhan Milagros Krusei Not detected Normal NOT DETECTED [facility] Comment on above: Performed By: #### Gerry INGRAM, CMP #### [facility] [address] [address] [address] Geri Pradhan Milagros Parapsilosis Not detected Normal NOT DETECTED [facility] Comment on above: Performed By: #### T JUAN JOSE, CMP #### [facility] [address] [address] [address] Geri Pradhan Milagros Tropicalis Not detected Normal NOT DETECTED [facility] Comment on above: Performed By: #### T JUAN JOSE, CMP #### [facility] [address] [address] [address] Geri Pradhan CTX-M Resistant Gene Not Applicable Normal NOT DETECTE D [facility] Comment on above: Performed By: #### T JUAN JOSE, CMP #### [facility] [address] [address] [address] Geri Pradhan E. Cloacae complex Not detected Normal NOT DETECTED [facility] Comment on above: Performed By: #### T JUAN JOSE, CMP #### [facility] [address] [place] [address] Dr. Geri Pradhan E. faecalis Not detected Normal NOT DETECTED [facility] Comment on above: Performed By: #### T JUAN JOSE, CMP #### [facility] [address] [place] [address] Dr. Geri Pradhan E. faecium Not detected Normal NOT DETECTED [facility] Comment on above: Performed By: #### T JUAN JOSE, CMP #### [facility] [address] [place] [address] Dr. Geri Pradhan Enterobacteriaceae Not detected Normal NOT DETECTED [facility] Comment on above: Performed By: #### T JUAN JOSE, CMP #### [facility] [address] [place] [address] Dr. Geri Pradhan Escherichia coli Not detected Normal NOT DETECTED [facility] Comment on above: Performed By: #### T JUAN JOSE, CMP #### [facility] [address] [place] [address] Dr. Geri Pradhan H. influenzae Not detected Normal NOT DETECTED [facility] Comment on above: Performed By: #### T JUAN JOSE, CMP #### [facility] [address] [place] [address] Dr. Geri Pradhan IMP Resistant Gene Not Applicable Normal NOT DETECTED [facility] Comment on above: Performed By: #### T JUAN JOSE, CMP #### [facility] [address] [address] [address] Geri Pradhan K. oxytoca Not detected Normal NOT DETECTED [facility] Comment on above: Performed By: #### T JUAN JOSE, CMP #### [facility] [address] [address] [address] Geri Pradhan K. pneumoniae Not detected Normal NOT DETECTED [facility] Comment on above: Performed By: #### T JUAN JOSE, CMP #### [facility] [address] [address] [address] Geri Pradhan Klebsiella aerogenes Not detected Normal NOT DETECTED [facility] Comment on above: Performed By: #### T JUAN JOSE, CMP #### [facility] [facility] [address] [place] [address] Dr. Geri Pradhan KPC Resistant Gene Not Applicable Normal NOT DETECTED [facility] Comment on above: Performed By: #### Gerry INGRAM, CMP #### [facility] [address] [place] [address] Dr. Geri Pradhan List. monocytogenes Not detected Normal NOT DETECTED [facility] Comment on above: Performed By: #### Gerry INGRAM, CMP #### [facility] [address] [place] [address] Dr. Geri Pradhan Mcr-1 Resistant Gene Not Applicable Normal NOT DETECTE D [facility] Comment on above: Performed By: #### Gerry INGRAM, CMP #### [facility] [address] [place] [address] Dr. Geri Pradhan mecA/C Detected Abnormal NOT DETECTED [facility] Comment on above: Performed By: #### T JUAN JOSE, CMP #### [facility] [address] [address] [address] Geri Pradhan mecA/C MREJ Not Applicable Normal NOT DETECTED [facility] Comment on above: Performed By: #### T JUAN JOSE, CMP #### [facility] [address] [place] [address] Dr. Geri Pradhan N. meningitidis Not detected Normal NOT DETECTED [facility] Comment on above: Performed By: #### Gerry INGRAM, CMP #### [facility] [address] [address] [address] Geri Pradhan NDM Resistant Gene Not Applicable Normal NOT DETECTED [facility] Comment on above: Performed By: #### T JUAN JOSE, CMP #### [facility] [address] [address] [address] Geri Pradhan Oxa-48-like Not Applicable Normal NOT DETECTED [facility] Comment on above: Performed By: #### T JUAN JOSE, CMP #### [facility] [address] [address] [address] Geri Pradhan Proteus Not detected Normal NOT DETECTED [facility] Comment on above: Performed By: #### Gerry INGRAM, CMP #### [facility] [address] [place] [address] Dr. Geri Pradhan Pseud. aeruginosa Not detected Normal NOT DETECTED [facility] Comment on above: Performed By: #### Gerry INGRAM, CMP #### [facility] [address] [place] [address] Dr. Geri Pradhan S. maltophilia Not detected Normal NOT DETECTED [facility] Comment on above: Performed By: #### Gerry INGRAM, CMP #### [facility] [address] [address] [address] Geri Pradhan Salmonella Not detected Normal NOT DETECTED [facility] Comment on above: Performed By: #### Gerry INGRAM, CMP #### [facility] [address] [place] [address] Dr. Geri Pradhan Seratia marcescens Not detected Normal NOT DETECTED [facility] Comment on above: Performed By: #### Gerry INGRAM, CMP #### [facility] [address] [address] [address] Geri Pradhan Site: Right AC Normal [facility] Comment on above: Performed By: #### Gerry INGRAM, CMP #### [facility] [address] [place] [address] Dr. Geri Pradhan Staph. aureus Not detected Normal NOT DETECTED [facility] Comment on above: Performed By: #### T JUAN JOSE, CMP #### [facility] [address] [place] [address] Dr. Geri Epstein. epidermidis Detected Critically abnormal NOT DETECTED [facility] Comment on above: Performed By: #### T JUAN JOSE, CMP #### [facility] [address] [place] [address] Dr. Geri Pradhan Staph. lugdunensis Not detected Normal NOT DETECTED [facility] Comment on above: Performed By: #### T JUAN JOSE, CMP #### [facility] [address] [place] [address] Dr. Geri Pradhan Staphylococcus Detected Critically abnormal NOT DETECTED [facility] Comment on above: Performed By: #### T JUAN JOSE, CMP #### [facility] [address] [place] [address] Dr. Geri Pradhan Strep. agalactiae Not detected Normal NOT DETECTED [facility] Comment on above: Performed By: #### Gerry INGRAM, CMP #### [facility] [address] [place] [address] Dr. Geri Pradhan Strep. pneumoniae Not detected Normal NOT DETECTED [facility] Comment on above: Performed By: #### Gerry INGRAM, CMP #### [facility] [address] [place] [address] Dr. Geri Pradhan Strep. pyogenes Not detected Normal NOT DETECTED [facility] Comment on above: Performed By: #### Gerry INGRAM, CMP #### [facility] [address] [place] [address] Dr. Geri Pradhan Streptococcus Not detected Normal NOT DETECTED [facility] Comment on above: Performed By: #### Gerry INGRAM, CMP #### [facility] [address] [place] [address] Dr. Geri Pradhan Amrit/B Resist. Gene Not Applicable Normal NOT DETECTED [facility] Comment on above: Performed By: #### T JUAN JOSE, CMP #### [facility] [address] [place] [address] Dr. Geri Pradhan VIM Resistant Gene Not Applicable Normal NOT DETECTED [facility] Comment on above: Performed By: #### T JUAN JOSE, CMP #### [facility] [address] [address] [address] Geri Prad[facility] 02 MODE NASAL CANNULA Normal [facility] Comment on above: Performed By: #### R SPLUS #### [facility] [address] [address] [address] Geri Pradhna ALLENS TEST Positive Normal [facility] Comment on above: Performed By: #### R SPLUS #### [facility] [address] [address] [address] Geri Pradhan Base excess Calc (Bld) [Moles/Vol] 22.8 mmol/L Critically high -2.0-2.0 [facility] Comment on above: Performed By: #### R SPLUS #### [facility] [address] [place] [address] Dr. Geri Pradhan BIPAP PRESSURE Normal [facility] Comment on above: Performed By: #### R SPLUS #### [facility] [address] [address] [address] Geri Pradhan CPAP [facility] Comment on above: Performed By: #### R SPLUS #### [facility] [address] [address] [address] Geri Pradhan FIO2 [facility] Comment on above: Performed By: #### R SPLUS #### [facility] [address] [address] [address] Geri Pradhan HCO3 (Bld) [Moles/Vol] 47.1 mmol/L Critically high 22.0-26 .0 [facility] Comment on above: Performed By: #### R SPLUS #### [facility] [address] [address] [address] Geri Pradhan LPM 2.5 [facility] Comment on above: Performed By: #### R SPLUS #### [facility] [address] [place] [address] Dr. Geri Pradhan MINUTE VOLUME Normal [facility] Comment on above: Performed By: #### R SPLUS #### [facility] [address] [address] [address] Geri Pradhan Oxygen (Bld) [Partial pressure] 95.8 mm[Hg] Normal 80.0-100.0 [facility] Comment on above: Performed By: #### R SPLUS #### [facility] [address] [place] [address] Dr. Geri Pradhan Oxygen saturation in Blood 98.0 % Normal 95.0-100.0 [facility] Comment on above: Performed By: #### R SPLUS #### [facility] [address] [place] [address] Dr. Geri Pradhan PCO2 71.5 mmHg Critically high 35.0-45.[address] [facility] Comment on above: Performed By: #### R SPLUS #### [facility] [address] [place] [address] Dr. Geri Pradhan PEEP [facility] Comment on above: Performed By: #### R SPLUS #### [facility] [address] [place] [address] Dr. Geri Pradhan pH (Bld) 7.428 [pH] Normal 7.350-7.450 [facility] Comment on above: Performed By: #### R SPLUS #### [facility] [address] [place] [address] Dr. Geri Pradhan PIP [facility] Comment on above: Performed By: #### R SPLUS #### [facility] [address] [place] [address] Dr. Geri Pradhan PS [facility] Comment on above: Performed By: #### R SPLUS #### [facility] [address] [place] [address] Dr. Geri Pradhan PUNCTURE SITE RR Normal [facility] Comment on above: Performed By: #### R SPLUS #### [facility] [address] [place] [address] Dr. Geri Pradhan RATE [facility] Comment on above: Performed By: #### R SPLUS #### [facility] [address] [place] [address] Dr. Geri Pradhan VENT MODE Normal [facility] Comment on above: Performed By: #### R SPLUS #### [facility] [address] [place] [address] Dr. Geri Pradhan DC Normal [facility] Comment on above: Performed By: #### R SPLUS #### [facility] [address] [place] [address] Dr. Geri Pradhan BNPon 09-01-2022 Natriuretic peptide B (Bld) [Mass/Vol] 143.0 pg/mL Normal <=900.0 [facility] Comment on above: Performed By: #### R SPLUS #### [facility] [address] [place] [address] Dr. Geri Pradhan CARDIAC BRAYAN ADMITon 023 CK [Catalytic activity/Vol] 21 U/L Critically low 26-192 [facility] Comment on above: Performed By: #### R SPLUS #### [facility] [address] [place] [address] Dr. Geri Pradhan CK.MB [Mass/Vol] 0.78 ng/mL Normal <=3.60 [facility] Comment on above: Performed By: #### R SPLUS #### [facility] [address] [place] [address] Dr. Geri Pradhan HSTROP 6.9 pg/mL Normal 4.0-51.3 [facility] Comment on above: Result Comment: CUT- OFF POINTS HAVE BEEN ESTABLISHED BASED ON THE FOURTH UNIVERSAL DEFINITIONS OF MYOCARDIAL INFARCTION. THE UPPER REFERENCE LIMIT (URL) OF TROPONIN, DEFINED THE 99TH PERCENTILE OF cTnI DISTRIBUTION IN A REFERENCE POPULATION, HAS BEEN CONFIRMED THE DECISION THRESHOLD FOR GA DIAGNOSIS. Performed By: #### R SPLUS #### [facility] [address] [place] [address] Dr. Geri Pradhan VIN 20 ng/mL Normal 9-82 [facility] Comment on above: Performed By: #### R SPLUS #### [facility] [address] [place] [address] Dr. Geri Pradhan CBC AUTO DIFFon 09-01-2022 BASO # 0.0 103/ul Normal 0.0-0.1 [facility] Comment on above: Performed By: #### C BC #### [facility] [address] [address] [address] Geri Pradhan Basophils/100 WBC (Bld) 0.2 % Normal 0.2-2.0 [facility] Comment on above: Performed By: #### C BC #### [facility] [address] [address] [address] Geri Pradhan EO # 0.1 103/ul Normal 0.0-0.7 [facility] Comment on above: Performed By: #### C BC #### [facility] [address] [address] [address] Geri Pradhan Eosinophils/100 WBC (Bld) 1.5 % Normal 0.9-7.0 [facility] Comment on above: Performed By: #### C BC #### [facility] [address] [place] [address] Dr. Geri Pradhan Erythrocyte distribution width (RBC) [Ratio] 12.8 % Normal 11.0-15.0 [facility] Comment on above: Performed By: #### C BC #### [facility] [address] [place] [address] Dr. Geri Pradhan Hematocrit (Bld) [Volume fraction] 41.8 % Normal 36.0-48.0 [facility] Comment on above: Performed By: #### C BC #### [facility] [address] [place] [address] Dr. Geri Pradhan Hemoglobin (Bld) [Mass/Vol] 13.1 g/dL Normal 12.0-16.0 [facility] Comment on above: Performed By: #### C BC #### [facility] [address] [address] [address] Geri Pradhan IG # 0.05 10e3/ul Critically high 0.00-0.03 [facility] Comment on above: Performed By: #### C BC #### [facility] [address] [address] [address] Geri Pradhan IG % 0.5 % Normal 0.0-0.5 [facility] Comment on above: Performed By: #### C BC #### [facility] [address] [address] [address] Geri Pradhan LYMPH # 2.4 103/ul Normal 1.2-3.8 [facility] Comment on above: Performed By: #### C BC #### [facility] [address] [place] [address] Dr. Geri Pradhan Lymphocytes/100 WBC (Bld) 24.9 % Normal 20.5-60.0 [facility] Comment on above: Performed By: #### C BC #### [facility] [address] [place] [address] Dr. Geri Pradhan MANUAL DIFF REQ NO Normal [facility] Comment on above: Performed By: #### C BC #### [facility] [address] [place] [address] Dr. Geri Pradhan MCH (RBC) [Entitic mass] 27.2 pg Normal 26.7-34.0 [facility] Comment on above: Performed By: #### C BC #### [facility] [address] [place] [address] Dr. Geri Pradhan MCHC (RBC) [Mass/Vol] 31.3 g/dL Normal 29.9-35.2 [facility] Comment on above: Performed By: #### C BC #### [facility] [address] [place] [address] Dr. Geri Pradhan MCV (RBC) [Entitic vol] 86.7 fL Normal 81.0-99.0 [facility] Comment on above: Performed By: #### C BC #### [facility] [address] [place] [address] Dr. Geri Pradhan MONO # 0.9 103/ul Critically high 0.3-0.[address] [facility] Comment on above: Performed By: #### C BC #### [facility] [address] [place] [address] Dr. Geri Pradhan Monocytes/100 WBC (Bld) 8.9 % Normal 1.7-12.0 [facility] Comment on above: Performed By: #### C BC #### [facility] [address] [place] [address] Dr. Geri Pradhan NEUT # 6.1 103/ul Normal 1.4-6.5 [facility] Comment on above: Performed By: #### C BC #### [facility] [address] [place] [address] Dr. Geri Pradhan Neutrophils/100 WBC (Bld) 64.0 % Normal 43.0-75.0 [facility] Comment on above: Performed By: #### C BC #### [facility] [address] [place] [address] Dr. Geri Pradhan Platelet mean volume (Bld) [Entitic vol] 9.2 fL Critically low 9.5-13.5 [facility] Comment on above: Performed By: #### C BC #### [facility] [address] [place] [address] Dr. Geri Pradhan PLT 349 103/ul Normal 150-450 [facility] Comment on above: Performed By: #### C BC #### [facility] [address] [place] [address] Dr. Geri Pradhan RBC 4.82 106/ul Normal 4.20-5.40 [facility] Comment on above: Performed By: #### C BC #### [facility] [address] [place] [address] Dr. Geri Pradhan WBC 9.5 103/ul Normal 4.0-11.0 [facility] Comment on above: Performed By: #### C BC #### [facility] [address] [place] [address] Dr. Geri Pradhan CULTURE BLOODon 09-01-2022 Microscopic examination of blood, culture Culture Observations: NO GROWTH AT 5 DAYS. Normal [facility] Comment on above: Performed By: #### P OCGLUC #### [facility] [address] [place] [address] Dr. Geri Pradhan CULTURE URINEon 09-01-2022 CULTURE URINE Culture Observations : EDUARDO TO FOLLOW. Isolate 1 Pseudomonas aeruginosa 10,000 cfu/mL of Normal [facility] Comment on above: Performed By: #### P OCGLUC #### [facility] [address] [address] [address] Geri Pradhan ER URINE PROFILEon 3 Bilirubin Ql (U) Negative Normal NEGATIVE [facility] Comment on above: Performed By: #### P OCGLUC #### [facility] [address] [address] [address] Geri Pradhan Clarity (U) CLEAR Normal CLEAR [facility] Comment on above: Performed By: #### P OCGLUC #### [facility] [address] [address] [address] Geri Pradhan Color (U) LT. YELLOW Normal YELLOW [facility] Comment on above: Performed By: #### P OCGLUC #### [facility] [address] [place] [address] Dr. Geri HUNT A micrscopic examination will be performed if indicated. Normal [facility] Comment on above: Performed By: #### P OCGLUC #### [facility] [address] [address] [address] Geri Pradhan Glucose Ql (U) Negative Normal NEGATIVE [facility] Comment on above: Performed By: #### P OCGLUC #### [facility] [address] [address] [address] Geri Pradhan Hemoglobin Ql (U) TRACE-INTACT Abnormal NEGATIVE [facility] Comment on above: Performed By: #### P OCGLUC #### [facility] [address] [address] [address] Geri Pradhan Ketones Ql (U) Negative Normal NEGATIVE [facility] Comment on above: Performed By: #### P OCGLUC #### [facility] [address] [address] [address] Geri Pradhan LEUKOCYTES MODERATE Abnormal NEGATIVE [facility] Comment on above: Performed By: #### P OCGLUC #### [facility] [address] [address] [address] Geri Pradhan Nitrite Ql (U) Negative Normal NEGATIVE [facility] Comment on above: Performed By: #### P OCGLUC #### [facility] [address] [place] [address] Dr. Geri Pradhan pH (U) 6.5 [pH] Normal 5-9 [facility] Comment on above: Performed By: #### P OCGLUC #### [facility] [address] [place] [address] Dr. Geri Pradhan SPEC GRAVITY 1.010 Normal 1.005-<=1.02 5 [facility] Comment on above: Performed By: #### P OCGLUC #### [facility] [address] [place] [address] Dr. Geri Pradhan UA PROTEIN Negative Normal NEGATIVE/ TRACE [facility] Comment on above: Performed By: #### P OCGLUC #### [facility] [address] [place] [address] Dr. Geri Pradhan UR MICRO IND INDICATED Normal [facility] Comment on above: Performed By: #### P OCGLUC #### [facility] [address] [place] [address] Dr. Geri Pradhan Urobilinogen Qn (U) 0.2 {Lelia'U}/dL Normal 0.2 - 1. 0 [facility] Comment on above: Performed By: #### P OCGLUC #### [facility] [address] [place] [address] Dr. Geri Pradhan LACTATE/LACTIC ACIDon 2022 Lactate [Moles/Vol] 0.7 mmol/L Normal 0.4-2.0 [facility] Comment on above: Performed By: #### T JUAN JOSE, CMP #### [facility] [address] [place] [address] Dr. Geri Pradhan PROF 14(COMP METB)on 023 Albumin [Mass/Vol] 3.3 g/dL Critically low 3.4-5.0 [facility] Comment on above: Performed By: #### P OCGLUC #### [facility] [address] [place] [address] Dr. Geri Pradhan Albumin/Globulin [Mass ratio] 0.7 {ratio} Normal [facility] Comment on above: Performed By: #### P OCGLUC #### [facility] [address] [address] [address] Geri Pradhan ALP [Catalytic activity/Vol] 81 U/L Normal 46-116 [facility] Comment on above: Performed By: #### P OCGLUC #### [facility] [address] [address] [address] Geri Pradhan ALT [Catalytic activity/Vol] 19 U/L Normal 14-59 [facility] Comment on above: Performed By: #### P OCGLUC #### [facility] [address] [address] [address] Geri Pradhan Anion gap [Moles/Vol] 3.1 mmol/L Normal [facility] Comment on above: Performed By: #### P OCGLUC #### [facility] [address] [address] [address] Geri Pradhan AST [Catalytic activity/Vol] 16 U/L Normal 15-37 [facility] Comment on above: Performed By: #### P OCGLUC #### [facility] [address] [place] [address] Dr. Geri Pradhan Bilirubin [Mass/Vol] 0.2 mg/dL Normal 0.2-1.0 [facility] Comment on above: Performed By: #### P OCGLUC #### [facility] [address] [address] [address] Geri Pradhan Calcium [Mass/Vol] 9.8 mg/dL Normal 8.5-10.1 [facility] Comment on above: Performed By: #### P OCGLUC #### [facility] [address] [address] [address] Geri Pradhan Chloride [Moles/Vol] 93 mmol/L Critically low 98-107 [facility] Comment on above: Performed By: #### P OCGLUC #### [facility] [address] [place] [address] Dr. Geri Pradhan CO2 [Moles/Vol] 45.3 mmol/L Critically high 21.0-32.0 [facility] Comment on above: Performed By: #### P OCGLUC #### [facility] [address] [address] [address] Geri Pradhan Creatinine [Mass/Vol] 0.51 mg/dL Critically low 0.55-1.02 [facility] Comment on above: Performed By: #### P OCGLUC #### [facility] [address] [address] [address] Geri Pradhan EGFR-AF JAPANESE >60 Normal >=60 [facility] Comment on above: Performed By: #### P OCGLUC #### [facility] [address] [address] [address] Geri Pradhan EGFR-NON AF JAPANESE >60 Normal >=60 [facility] Comment on above: Performed By: #### P OCGLUC #### [facility] [address] [address] [address] Geri Pradhan Globulin (S) [Mass/Vol] 4.8 g/dL Normal [facility] Comment on above: Performed By: #### P OCGLUC #### [facility] [address] [address] [address] Geri Pradhan Glucose [Mass/Vol] 98 mg/dL Normal 74-106 [facility] Comment on above: Performed By: #### P OCGLUC #### [facility] [address] [address] [address] Geri Pradhan Potassium [Moles/Vol] 3.4 mmol/L Critically low 3.5-5.1 [facility] Comment on above: Performed By: #### P OCGLUC #### [facility] [address] [address] [address] Geri Pradhan Protein [Mass/Vol] 8.1 g/dL Normal 6.4-8.2 [facility] Comment on above: Performed By: #### P OCGLUC #### [facility] [address] [address] [address] Geri Pradhan Sodium [Moles/Vol] 138 mmol/L Normal 136-145 [facility] Comment on above: Performed By: #### P OCGLUC #### [facility] [address] [address] [address] Geri Pradhan Urea nitrogen [Mass/Vol] 11.0 mg/dL Normal 7.0-18.0 [facility] Comment on above: Performed By: #### P OCGLUC #### [facility] [address] [place] [address] Dr. Geri Pradhan Urea nitrogen/Creatinine [Mass ratio] 21.6 mg/mg Normal [facility] Comment on above: Performed By: #### P OCGLUC #### [facility] [address] [place] [address] Dr. Geri Pradhan PROTIMEon 09-01-2022 INR Coag (PPP) [Relative time] 0.96 {INR} Normal [facility] Comment on above: Performed By: #### T JUAN JOSE, CMP #### [facility] [address] [place] [address] Dr. Geri Pradhan INR GUIDELINES SEE BELOW Normal [facility] Comment on above: Result Comment: KAROL RED INR: 2.0 - 3.0 CONDITIONS NOT LISTED BELOW 2.5 - 3.5 FOR PROSTHETIC HEART VALVE REPLACEMENT 2.5 - 3.5 RECURRENT THROMBOSIS Performed By: #### T JUAN JOSE, CMP #### [facility] [address] [place] [address] Dr. Geri Pradhan PT Coag (PPP) [Time] 10.2 s Normal 9.0-11.6 [facility] Comment on above: Performed By: #### Gerry INGRAM, CMP #### [facility] [address] [place] [address] Dr. Geri Pradhan PTTon 09-01-2022 aPTT Coag (Bld) [Time] 25.5 s Normal 22.3-36.2 [facility] Comment on above: Performed By: #### Gerry INGRAM, CMP #### [facility] [address] [place] [address] Dr. Geri Pradhan URINE MICROSCOPIC ONLYon BACTERIA NONE SEEN Normal NONE SEEN [facility] Comment on above: Performed By: #### P OCGLUC #### [facility] [address] [place] [address] Dr. Geri Pradhan Bacteria identified Cx Nom (U) INDICATED Normal [facility] Comment on above: Performed By: #### P OCGLUC #### [facility] [address] [place] [address] Dr. Geri Pradhan CAST NONE SEEN Normal NONE SEEN [facility] Comment on above: Performed By: #### P OCGLUC #### [facility] [address] [place] [address] Dr. Geri Pradhan Crystals LM Nom (Urine sed) NONE SEEN Normal NONE SEEN [facility] Comment on above: Performed By: #### P OCGLUC #### [facility] [address] [place] [address] Dr. Geri Pradhan Epithelial cells LM Ql (Urine sed) FEW Abnormal NONE SEEN /RARE [facility] Comment on above: Performed By: #### P OCGLUC #### [facility] [address] [place] [address] Dr. Geri Pradhan MUCOUS NONE SEEN Normal NONE SEEN [facility] Comment on above: Performed By: #### P OCGLUC #### [facility] [address] [place] [address] Dr. Geri Pradhan RBC 0-2 Normal 0-2 [facility] Comment on above: Performed By: #### P OCGLUC #### [facility] [address] [place] [address] Dr. Geri Pradhan WBC 10-20 Abnormal NONE SEEN [facility] Comment on above: Performed By: #### P OCGLUC #### [facility] [address] [place] [address] Dr. Geri Pradhan XR CHEST 1 Von 09-01-2022 XR CHEST 1 V EXAM: XR CHEST 1 V HISTORY: SHORTNESS OF BREATH COMPARISON: 02/15/2022 TECHNIQUE: Single view of the chest FINDINGS: Hyperinflation of the lungs. Scarring in the left apex, similar to prior CT. No definitive new areas of consolidation, pleural effusion or pneumothorax. IMPRESSION: Advanced emphysema. No acute findings. Electronically authenticated by: EAMON ANDREWS Date: 2022-09-01 20:18 Normal [facility] CNOVon 06-02-2022 CNOV Office Visit (RADTSA ) PHOEBE GUERRERO ([id number]) 1960 F Date Time Provider Department 06/02/22 2:00 PM ABDI [place] During your visit today, we recorded the following information about you: Temperature Pulse Respiration Blood pressure 97.7 degrees 116/minute 18/minute 125/78 Weight 49.4 kg Abdi Israel MD 06/15/2022 8:09 PM Addendum Radiation Oncology - Follow Up Note PATIENT NAME: PHOEBE Guerrero PATIENT DIAGNOSIS/PATIENT IDENTIFICATION: Ms. Guerrero is a 61-year-old woman with severe COPD, who is diagnosed with Stage IA3, [id number], non-small cell lung cancer arising from a nodule in the left upper lobe of the lung adjacent to the aortic arch. Given her severe COPD/emphysema requiring supplemental oxygen and her other medical comorbidities, she was not felt to be a surgical candidate and opted for definitive non-operative management of her early stage lung cancer with stereotactic body radiation therapy (SBRT) which she completed on 05/14/2018 (5000 cGy in 5 fractions). INTERVAL HISTORY/ROS: Ms. Guerrero returns to clinic today for routine follow-up approximately four years after the completion of her radiation treatments and two months since her last visit on 03/14/2022. In the interim, he had follow-up with her imaging findings in the right chest with bronchoscopy and biopsy on 05/09/2022 with pathology negative for malignant cells but showing abundant acute inflammation inflammatory exudate with fungal hyphae consistent with Aspergillus. These results were discussed with her cross tie maker Dr. Cross and the patient was referred to Dr. Conde in infectious disease for further evaluation and treatment of her fungal infection. Patient reports she has met with Dr. Conde and is in the process of additional work-up including a repeat CT of the chest. Today she reports that her breathing is stable with no further episodes of exacerbation and continues on supplemental oxygen via nasal cannula at 2 L [id number]. She notes that her cough is improved and she denies hemoptysis, chest pain, esophagitis. She endorses stable energy appetite and hydration. She otherwise denies any recent fevers, chills, headaches, difficulty with speech/swallowing, chest pain/palpitations, abdominal pain, nausea, vomiting, change in bowel/urinary habits, difficulty with gait/balance, recent falls, etc. The remainder of the review of systems was performed and was otherwise noncontributory. ALLERGIES ALLERGIES Allergen Reactions Levoquin [Levofloxa* Unknown Tendonitis but can take avalox MEDICATIONS: Current Outpatient Medications: budesonide (PULMICORT) 1 mg/2 mL nebulizer solution STIOLTO RESPIMAT 2.5-2.5 mcg/actuation mist montelukast (SINGULAIR) 10 mg tablet ipratropium/albuterol sulfate (DUONEB INHALATION) senna-docusate (SENOKOT-S) 8.6-50 mg per tablet albuterol (PROVENTIL) 2.5 mg/0.5 mL nebulizar solution PEDIATRIC ASTHMA Cetirizine 10 mg cap MI-24 200 mg 24 hr capsule PHYSICAL EXAM: GENERAL: Middle-aged woman sitting in chair in no acute distress. VITALS: BP 125/78 Pulse 116 Temp 97.7 Resp 18 Wt 108 lb 12.8 oz (49.4kg) SpO2 89% KPS: 80 HEENT: NC/AT, anicteric sclera HEART: S1S2 LUNGS: non-labored breathing ABDOMEN: soft MUSCULOSKELETAL: no peripheral edema, moves all extremities. NEURO: no focal deficit; AANDO X3. PATHOLOGIC DATA: 05/09/2022 FINAL DIAGNOSIS A - TRANSBRONCHIAL FINE NEEDLE ASPIRATION, LEFT UPPER LOBE - LEFT UPPER LOBE NODULE: Negative for malignant cells. Abundant acute inflammation and inflammatory exudate with macrophages and rare granulomas. Fungal hyphae present, morphologically consistent with Aspergillus species (see comment). B - BRONCHIAL LEFT UPPER LOBE BRUSH - LEFT UPPER LOBE NODULE TRIPLE NEEDLE BRUSH: Negative for malignant cells. Acute and chronic inflammation and inflammatory exudate with macrophages. Fungal hyphae present, morphologically consistent with Aspergillus species (see comment). FINAL DIAGNOSIS Left lung, upper lobe, nodule, transbronchial biopsy - Fragments of lung parenchyma with extensive scarring fibroelastosis and chronic inflammation. Diagnosis Comment Deeper levels were examined. No definite neoplasm is present. ASSESSMENT AND PLAN: Ms. Guerrero is a 61-year-old woman with severe COPD, who is diagnosed with Stage IA3, [id number], non-small cell lung cancer arising from a nodule in the left upper lobe of the lung adjacent to the aortic arch. Given her severe COPD/emphysema requiring supplemental oxygen and her other medical comorbidities, she was not felt to be a surgical candidate and opted for definitive non-operative management of her early stage lung cancer with stereotactic body radiation therapy (SBRT) which she completed on 05/14/2018 (5000 cGy in 5 fractions). Ms. Guerrero i (more content not included)... Normal [facility] ASPERGILLUS GALACTOMANNAN AN TIGEN DETECTon 05-28-2022 Aspergillus Ag, BAL/Serum 0.07 Index Normal 0.00-0.49 [facility] Comment on above: Result Comment: Perf ormed at: BN Performed By: #### Gerry INGRAM CMP #### [facility] [address] [place] [address] Dr. Geri Pradhan Test Information . Normal [facility] Comment on above: Result Comment: Perf ormed at: TG Performed By: #### Gerry INGRAM CMP #### [facility] [address] [address] [address] Geri Pradhan ASPERGILLUS AB, QUANTITATIVE DIDon 05-27-2022 Aspergillus flavus Negative Normal Neg:<1:1 [facility] Comment on above: Performed By: #### Gerry INGRAM CMP #### [facility] [address] [place] [address] Dr. Geri Pradhan Aspergillus fumigatus Negative Normal Neg:<1:1 [facility] Comment on above: Performed By: #### Gerry INGRAM, CMP #### [facility] [address] [address] [address] Geri Pradhan Aspergillus niger Negative Normal Neg:<1:1 [facility] Comment on above: Performed By: #### Gerry INGRAM, CMP #### [facility] [address] [place] [address] Dr. Geri Pradhan CULTURE SPUTUMon 05-23-2022 CULTURE SPUTUM Culture Observations : NORMAL RESPIRATORY NAVA. Normal [facility] Comment on above: Performed By: #### P OCGLUC #### [facility] [address] [address] [address] Geri Pradhan SPUTUM GRAM STAINon 05-23-19 COMMENTS Normal [facility] Comment on above: Performed By: #### T JUAN JOSE, CMP #### [facility] [address] [address] [address] Geri Pradhan DIPHTHEROIDS Normal [facility] Comment on above: Performed By: #### Gerry INGRAM, CMP #### [facility] [address] [address] [address] Geri Pradhan EPITHELIALS <25 Normal [facility] Comment on above: Performed By: #### Gerry INGRAM, CMP #### [facility] [address] [address] [address] Geri Pradhan FUNGAL ELEMENTS Normal [facility] Comment on above: Performed By: #### Gerry INGRAM CMP #### [facility] [address] [address] [address] Geri SY NEG BACILLI Normal [facility] Comment on above: Performed By: #### Gerry INGRAM CMP #### [facility] [address] [address] [address] Geri SY NEG DIPPLOCOCCI Normal [facility] Comment on above: Performed By: #### Gerry INGRAM, CMP #### [facility] [address] [address] [address] Geri SY POS BACILLI Normal [facility] Comment on above: Performed By: #### Gerry INGRAM, CMP #### [facility] [address] [address] [address] Geri SY POSITIVE COCCI MODERATE Normal [facility] Comment on above: Performed By: #### Gerry INGRAM, CMP #### [facility] [address] [address] [address] Geri Pradhan WBC (Bld) [#/Vol] 10*3/uL Normal [facility] Comment on above: Performed By: #### Gerry INGRAM, CMP #### [facility] [address] [address] [address] Geri Mayer 05-14-2022 CNPN Telephone (RADTSA) CARA GUERRERO ([id number]) 1960 F Date Time Provider Department 05/14/22 A[place]I [place] During your visit today, we recorded the following information about you: Julisa Pressley LPN 05/14/2022 12:01 PM Signed Alex: Will you please refer Cara to Dr. Conde for consult aleks dx: Fungal hyphae present, morphologically consistent with Aspergillus species (see comment. Dr. Israel--please sign pended consult order. I left two messages for Cara to call the office so we can notify her that we are arranging this appt. Thanks STACIE Dolan MD 05/14/2022 12:06 PM Signed Discussed pathology results from bronch/EBUS with the patient yesterday showing fungal/aspergillus infection. Spoke with her cross tie maker, Dr. Cross, today and agreed to refer to Dr. Conde for ID consult and management of pulmonary infection. Please send last years worth of notes and CT images in addition to pathology results. Thanks! Abdi Nash 05/14/2022 1:27 PM Signed Patient has been scheduled with Dr. Conde on 05/22/21. Patient has been called AND made aware of appointment. Emily: Please send specified documents to Dr. Conde. Fax cover sheet in your mailbox. Thanks, Alex Lomax [facility] 05/14/2022 2:00 PM Signed Records faxed to Dr. Conde. Requested images be pushed to [facility]. Abdi Israel MD 05/14/2022 10:40 PM Signed Thanks! 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 - ipratropium/albuterol sulfate (DUONEB INHALATION) Inhale as instructed. - senna-docusate (SENOKOT-S) 8.6-50 mg per tablet Take 2 tablets by mouth twice daily as needed. - albuterol (PROVENTIL) 2.5 mg/0.5 mL nebulizar solution PEDIATRIC ASTHMA Inhale 2.5-5 mg as instructed as directed. - Cetirizine 10 mg cap Take by mouth. - MI-24 200 mg 24 hr capsule Take 200 mg by mouth once daily. Problem List As Of Date 05/14/2022 Noted Resolved Lung nodule, solitary [R91.1] 03/02/2018 Centrilobular emphysema (HCC) [J43.2] 03/02/2018 Chronic respiratory failure with hypoxia (HCC) *03/02/2018 Non-small cell cancer of left lung (HCC) [C34.9*04/07/2018 Encounter Status:Closed by JULISA PRESSLEY on 05/15/22 [facility] ANES POSTPROC EVALon 023 ANES POSTPROC EVAL HNO ID: [id number] Author: Lora Ruby MD Service: ? Author Type: Anesthesiologist Type: Anesthesia Postprocedure Evaluation Filed: 05/09/2022 1:16 PM Note Text: POST ANESTHESIA EVALUATION NOTE : 1960 Procedure Summary Date: 05/09/22 Room / Location: [facility] B02 / [facility] H23 Anesthesia Start: 08 Anesthesia Stop: 1000 Procedure: BRONCHOSCOPY FLEXIBLE ADULT (Bronchus) Diagnosis: Bronchiolar disease (Bronchiolar disease [J98.09]) Surgeons: Yasmin Sorensen MD Responsible Provider: Lora Ruby MD Anesthesia Type: general ASA Status: 3 Anesthesia Type: general Airway Type: ETT Last Vitals Vitals Value Taken Time BP 134/80 05/09/22 1030 Temp 36.8 ?C (98.2 ?F) 05/09/22 1002 Pulse 99 05/09/22 1030 Resp 16 05/09/22 1030 SpO2 97 % 05/09/22 1030 Post Anesthesia Patient Status Patient Evaluation: bedside. Anticipated Disposition: phase 2 then home. Neurological Status: aware and responsive. Pulmonary Status: breathing comfortably on supplemental oxygen Airway Control: returned to baseline unsupported. Cardiovascular Status: stable. Pain Management: satisfactory to patient Postoperative Hydration: acceptable. Intraoperative Events: no significant anesthesia events Post Operative Nausea/Vomiting Status: no significant post operative nausea or vomiting Anesthesia Observations No Documentation SIGNATURE: Lora Ruby MD PATIENT NAME: Cara Guerrero DATE: May 09, 2022 TIME: 1:16 PM CSN: [id number] Normal [facility] ANES PRE-OPon 05-09-2022 ANES PRE-OP HNO ID: [id number] Author: Lora Ruby MD Service: ? Author Type: Anesthesiologist Type: Anesthesia Preprocedure Evaluation Filed: 05/09/2022 7:49 AM Note Text: ANESTHESIOLOGY DAY OF SURGERY NOTE : 1960 Procedure Information Date/Time: 05/09/22729 Procedure: BRONCHOSCOPY FLEXIBLE ADULT (Bronchus) - Tier 2- ION Robot Navigation Bronchoscopy CT scheduled for 05/06 COVID Neg 05/06 @ [facility] [phone] Location: [facility] B-02 / [facility] H23 Surgeons: Yasmin Sorensen MD Estimated body mass index is 18.02 kg/m? as calculated from the following: Height as of this encounter: 162.6 cm (5' 4 ). Weight as of this encounter: 47.6 kg (105 lb). Most recent hematocrit and potassium results: Hematocrit 42.2 04/24/2022 Potassium 4.0 04/24/2022 Relevant Problems PULMONARY (+) Centrilobular emphysema (HCC) I - PHYSICAL EVALUATION AIRWAY Patient intubated: No. Tracheostomy tube not present Mallampati: II. TM distance: >3 FB. Neck ROM: full ROM without neurological symptoms. Mouth opening: adequate. Short neck: no. Thick neck: no Hinson present: no II - ANESTHESIA PLAN ASA Score: 3 Anesthetic Plan: general Airway type: ETT The patient is not a current smoker. NPO Status: adequate Beta Brittany Monitoring Plan Monitoring plan: standard ASA. Post Procedure Analgesic Plan Postoperative analgesic plan: parenteral or oral opioids and multimodal analgesia. Informed Consent Anesthetic risks, benefits, alternatives, personnel and consent discussed: yes. Patient / Responsible Democrat agrees to proceed: yes Patient / Surrogate agrees to blood products: Yes Significant changes in the patient condition since the History and Physical, not otherwise documented in primary service progress note: no. Vitals Value Taken Time BP 150/76 05/09/22 07 Pulse 106 05/09/22 07 Resp 22 05/09/22702 Temp 36 ?C (96.8 ?F) 05/09/22 07 SpO2 98 % 05/09/22 07 Facility-Administered Medications as of 05/09/2022 Medication Dose Route Frequency - NaCl 0.9% iv infusion 5-30 mL/hr INTRAVENOUS CONTINUOUS Outpatient Medications as of 05/09/2022 Medication Sig - budesonide (PULMICORT) 1 mg/2 mL nebulizer solution INHALE 1 VIAL VIA NEBULIZER TWICE A DAY - STIOLTO RESPIMAT 2.5-2.5 mcg/actuation mist TAKE 2 PUFFS BY MOUTH EVERY DAY - montelukast (SINGULAIR) 10 mg tablet Take 10 mg by mouth daily at bedtime. - ipratropium/albuterol sulfate (DUONEB INHALATION) Inhale as instructed. - albuterol (PROVENTIL) 2.5 mg/0.5 mL nebulizar solution PEDIATRIC ASTHMA Inhale 2.5-5 mg as instructed as directed. - Cetirizine 10 mg cap Take by mouth. - MI-24 200 mg 24 hr capsule Take 200 mg by mouth once daily. - senna-docusate (SENOKOT-S) 8.6-50 mg per tablet Take 2 tablets by mouth twice daily as needed. I have interviewed and examined the patient. I have reviewed the medical record and/or the pre-anesthesia evaluation, pertinent labs, and test results. This contains updated information obtained within 48 hours of Surgery/Procedure. SIGNATURE: Lora Ruby MD PATIENT NAME: Cara Guerrero DATE: May 09, 2022 TIME: 7:48 AM CSN: [id number] Normal [facility] BRONCHOSCOPYon 05-09-2022 [facility] CYTOLOGY NON-GYNon 3 ADEQUACY INTERPRETATION Normal [facility] Comment on above: Order Comment: Speci men Type: SPECIMEN OBTAINED BY ASPIRATIONOrdering Facility: [facility] Address: [address] [place] [address] Result Comment: A: # 1-5 Non-diagnostic #6,7 Acute inflammation and macrophages B: #1,2 Non-diagnostic Dr. Arian Layne/Dr. Arian Blancas/Rodney Ly Each letter in the above intra-procedural assessment refers to a unique site. The specific site is indicated in the final diagnosis portion of the report. Each number in this assessment references a discrete evaluation episode. Intra-procedural assessment performed at [facility], [address] [place] [address] Performed By: #### C YTONON ####[facility] [id number] [place] [address] [place] CASE REPORT Normal [facility] Comment on above: Order Comment: Speci men Type: SPECIMEN OBTAINED BY ASPIRATIONOrdering Facility: [facility] Address: [address] [place] [address] Result Comment: [facility] Cytology Report Case: [id number] Authorizing Provider: Yasmin Sorensen MD Collected: 05/09/2022 08:48 AM Ordering Location: Admitting Received: 05/09/2022 10:24 AM Pathologist: Anthony Layne MD Specimens: A) - TRANSBRONCHIAL FINE-NEEDLE ASPIRATION, LEFT UPPER LOBE, LEFT UPPER LOBE NODULE B) - BRONCHIAL LEFT UPPER LOBE BRUSH, LEFT UPPER LOBE NODULE TRIPLE NEEDLE BRUSH Performed By: #### C YTONON ####[facility] LABCLIA [id number] [address] CLINICAL HISTORY Lung Cancer 2019. Normal [facility] Comment on above: Order Comment: Speci men Type: SPECIMEN OBTAINED BY ASPIRATIONOrdering Facility: [facility] Address: [address] [place] [address] Performed By: #### C YTONON ####[facility] LABIA [id number] [address] DIAGNOSIS COMMENT Normal [facility] Comment on above: Order Comment: Speci men Type: SPECIMEN OBTAINED BY ASPIRATIONOrdering Facility: [facility] Address: [address] [place] [address] Result Comment: A an d B. The aspirate and brush smears and ThinPrep slides show inflammatory changes and no fungal elements are identified. However, the cell blocks A1 and B1 show numerous fungal hyphae, morphologically consistent with Aspergillus species. GMS stains performed on cell blocks A1 and B1 are positive for fungal elements, support the diagnosis. Clinical and radiological correlation is suggested. Refer also to the concurrent biopsy specimen [id number]. The findings were conveyed to Dr. Sorensen via an email on 05/13/2022. by Dr. Layne Performed By: #### C YTONON ####[facility] LABIA [id number] [address] FINAL DIAGNOSIS Normal [facility] Comment on above: Order Comment: Speci men Type: SPECIMEN OBTAINED BY ASPIRATIONOrdering Facility: [facility] Address: [address] [place] [address] Result Comment: A - TRANSBRONCHIAL FINE NEEDLE ASPIRATION, LEFT UPPER LOBE - LEFT UPPER LOBE NODULE: Negative for malignant cells. Abundant acute inflammation and inflammatory exudate with macrophages and rare granulomas. Fungal hyphae present, morphologically consistent with Aspergillus species (see comment). B - BRONCHIAL LEFT UPPER LOBE BRUSH - LEFT UPPER LOBE NODULE TRIPLE NEEDLE BRUSH: Negative for malignant cells. Acute and chronic inflammation and inflammatory exudate with macrophages. Fungal hyphae present, morphologically consistent with Aspergillus species (see comment). The following cell blocks were associated with this case: A1 Cell Block, Alcohol Fixed B1 Cell Block, Alcohol Fixed Performed By: #### C YTONON ####[facility] LABCLIA [id number] [address] OF [facility] FINAL PERFORMING LAB Normal [facility] Comment on above: Order Comment: Speci men Type: SPECIMEN OBTAINED BY ASPIRATIONOrdering Facility: [facility] Address: [address] [place] [address] Result Comment: Tech nical component, seed yeast operator screening performed at [facility], [address] [id number] CLIA# [id number] Diagnostic interpretation performed at [facility], [facility] [address] CLIA# [id number] Conveyor Feeder Offbearer: Axel Romano M.D. Performed By: #### C YTONON ####[facility] LABCLIA [id number] [address] GROSS DESCRIPTION Normal [facility] Comment on above: Order Comment: Speci men Type: SPECIMEN OBTAINED BY ASPIRATIONOrdering Facility: [facility] Address: [address] [place] [address] Result Comment: A. T RANSBRONCHIAL FINE-NEEDLE ASPIRATION, LEFT UPPER LOBE 30 cc cloudy red CytoLyt with material. ThinPrep and Cell Block prepared and 14 smears (7 air dried and 7 fixed). Performed By: #### C YTONON ####[facility] LABCLIA [id number] [address] OF [place] ORDER COMMENT Normal [facility] Comment on above: Order Comment: Speci men Type: SPECIMEN OBTAINED BY ASPIRATIONOrdering Facility: [facility] Address: [address] [place] [address] Result Comment: Pre- op diagnosis: Bronchiolar disease [J98.09] Performed By: #### C YTONON ####[facility] LABCLIA [id number] [address] [place] NURSING PROGon 05-09-2022 NURSING PROG HNO ID: [id number] Author: Luz Maria Blanca RN Service: Nursing Author Type: Registered Nurse Type: Nursing Progress Note Filed: 05/09/2022 10:36 AM Note Text: POST OP LEARNING RESPONSE INSTRUCTION PROVIDED TO: Patient and family member METHOD OF INSTRUCTION: Individual instruction Written instruction - handouts Verbal instruction PATIENT / FAMILY RESPONSE: Verbalizes understanding of: POST-PROCEDURE INSTRUCTIONS-Correct actions to take to reduce post procedure complications FOLLOW-UP PLAN: Complete - No need for follow-up SUPPLEMENTAL MATERIAL: None REFERRAL (RECOMMENDATION): None Electronically Signed By: Luz Maria Blanca RN Normal [facility] SURGICAL PATHOLOGYon 023 CASE REPORT Normal [facility] Comment on above: Order Comment: Speci men Type: TISSUE SPECIMENOrdering Facility: [facility] Address: [address] [place] [address] Result Comment: Surg ical Pathology Report Case: [id number] Authorizing Provider: Yasmin Sorensen MD Collected: 05/09/2022 09:34 AM Ordering Location: Admitting Received: 05/09/2022 10:56 AM Pathologist: Tucker Mulligan V, MD Specimen: TRANSBRONCHIAL BIOPSY, LEFT UPPER LOBE, SELENE NODULE Performed By: #### S ####[facility] LABCLIA [id number] [address] [place] CLINICAL HISTORY Normal [facility] Comment on above: Order Comment: Speci men Type: TISSUE SPECIMENOrdering Facility: [facility] Address: [address] [place] [address] Result Comment: Pre- op diagnosis: Bronchiolar disease [J98.09] Performed By: #### S ####[facility] LABCLIA [id number] [address] [place] DIAGNOSIS COMMENT Normal [facility] Comment on above: Order Comment: Speci men Type: TISSUE SPECIMENOrdering Facility: [facility] Address: [address] [place] [address] Result Comment: Deep er levels were examined. No definite neoplasm is present. Performed By: #### S ####[facility] LABCLIA [id number] [address] FINAL DIAGNOSIS Normal [facility] Comment on above: Order Comment: Speci men Type: TISSUE SPECIMENOrdering Facility: [facility] Address: [address] [address] Result Comment: Left lung, upper lobe, nodule, transbronchial biopsy - Fragments of lung parenchyma with extensive scarring fibroelastosis and chronic inflammation. [facility]/ 05/12/2022 Performed By: #### S ####[facility] LABCLIA [id number] [address] OF [facility] FINAL PERFORMING LAB Normal [facility] Comment on above: Order Comment: Speci men Type: TISSUE SPECIMENOrdering Facility: [facility] Address: [address] [address] Result Comment: Diag nostic interpretation performed at [facility], [address] [place] [address] CLIA# [id number] [employer]vey[employer] Feeder Offbearer: Axel Romano M.D. Performed By: #### S ####[facility] LABCLIA [id number] [address] OF [facility] GROSS DESCRIPTION Normal [facility] Comment on above: Order Comment: Speci [facility] Type: TISSUE SPECIMENOrdering Facility: [facility] Address: [address] [address] Result Comment: A. T RANSBRONCHIAL BIOPSY, LEFT UPPER LOBE Received in formalin are multiple pieces of carcamo, soft tissue aggregating to 1.6 x 0.4 x 0.2 cm. Totally submitted in one cassette. GMR May 09, 2022 4:05 PM Gross examination performed at [facility], [address] [place] [address] Performed By: #### S ####[facility] LABCLIA [id number] [facility] [id number] [place] CT CHEST WO IVCONon 05-06-19 CT CHEST WO IVCON * * *Final Report* * * DATE OF EXAM: May 06 2022 8:57AM [facility] 0541 - CT CHEST WO IVCON / PROCEDURE REASON: Lung mass * * * * Physician Interpretation * * * * RESULT: EXAMINATION: CHEST CT WITHOUT CONTRAST CLINICAL HISTORY: Lung mass. Preoperative imaging. History of left upper lobe lung cancer, treated with SBRT. New upper respiratory symptoms in February,, resulting in chest CT with growing left upper lobe mass along radiation bed. This region was subsequently FDG avid on a subsequently performed PET/CT. Plan for endobronchial biopsy. Technique: Spiral CT acquisition of the chest from the thoracic inlet to the upper abdomen without contrast. Super dimension protocol. MQ: [id number]_6 CT Radiation dose: Integrated Dose-length product (DLP) for this visit = 128 mGy*cm CT Dose Reduction Employed: Automated exposure control (AEC) Comparison: CT chest 02/15/2022; 05/29/2021; 05/30/2020. PET-CT 03/07/2022 RESULT: Limitations: None. Lines, tubes, and devices: None. Lung parenchyma and airways: There is diffuse centrilobular emphysema. There is mild subsegmental atelectasis/scarring within the lingula. There is new total atelectasis involving the right middle lobe. There is dependent secretion within the right mainstem bronchus. There is mild diffuse bronchial wall thickening, compatible with chronic bronchitis. Again seen are left perihilar and left upper lobe regions of paramediastinal postradiation fibrosis. In addition, there is an enlarging region of ill-defined airspace opacification within the posterior medial left upper lobe, measuring 4.3 x 2.4 cm on series 4, image 98 (unchanged from 02/15/2022; new since 05/29/2021), contiguous with previously seen post-radiation change. Again seen are linear bands extending to the pleural margin along the periphery of this lesion. A 0.3 cm right upper lobe nodule (series 4, image 222) is unchanged. Pleural space: No pleural effusion. No pleural thickening. Lower neck, lymph nodes, and mediastinum: The imaged thyroid is unremarkable. There is no axillary, mediastinal or hilar lymphadenopathy. An enlarged posterior left supraclavicular lymph node measuring 1.2 x 1.6 cm (series 3, image 2) is unchanged. Heart, pericardium, and thoracic vessels: The thoracic aorta and main pulmonary artery are normal in caliber. The cardiac chambers are normal in size. Coronary artery atherosclerotic calcifications are noted, although the study is not optimized for coronary assessment. No pericardial effusion or thickening. Bones and soft tissues: No destructive bone lesion. Chest wall is unremarkable. Upper abdomen: No abnormality in the imaged upper abdomen. Camera Engineer (topogram) images: No additional findings. IMPRESSION: 1. Since 02/15/2022, unchanged irregular consolidative mass along the posterior lateral margin of the left upper lobe radiation bed, suspicious for neoplasm (new since 05/29/2021). 2. Unchanged enlarged left posterior supraclavicular lymph node. 3. Diffuse emphysema. 4. New total atelectasis of the right middle lobe. Mild dependent secretion within the right mainstem bronchus. Transcribe Date/Time: May 06 2022 10:45A Dictated by: YUMIKO SIMS MD This examination was interpreted and the report reviewed and electronically signed by: YUMIKO SIMS MD on May 06 2022 11:05AM EST Thank you for allowing us to participate in the care of your patient. Should there be any questions regarding this interpretation, please call [phone]. If you are unable to reach us at the number above, please feel free to contact [facility] eRadiology at [phone]. [id number] Normal [facility] Covid-19 PCR (CVDTBH)on 04-14 SARS-CoV-2 (COVID-19) RNA KRUNAL+probe Ql (Unsp spec) Not detected Normal NOT DETECTED [facility] Comment on above: Result Comment: This test is not yet approved or cleared by the [place] FDA. When there are no FDA-approved or cleared tests available, and other criteria are met, FDA can make tests available under an emergency access mechanism called an Emergency Use Authorization (EUA). The EUA for this test is supported by the [place] of Health and Human Service's (HHS's) declaration that circumstances exist to justify the emergency use of in vitro diagnostics for the detection and/or diagnosis of the virus that causes COVID-19. This EUA will remain in effect (meaning this test can be used) for the duration of the COVID-19 declaration justifying emergency of IVDs, unless it is terminated or revoked by FDA (after which the test may no longer be used). When diagnostic testing is negative, the possibility of a false negative should be considered in the context of a patient's recent exposures and the presence of clinical signs and symptoms consistent with SARS-CoV-2. Performed By: #### R SPLUS #### [facility] [address] [place] [address] Dr. Geri Pradhan Basic metabolic 2000 panelon 04-24-2022 Anion gap [Moles/Vol] 5 mmol/L Low 9-18 [facility] Comment on above: Order Comment: Speci men Type: BLOOD SPECIMENOrdering Facility: [facility] Address: [address] [address] Performed By: #### 2 4321-2 ####[facility] [id number] [place] [address] Calcium [Mass/Vol] 9.8 mg/dL Normal 8.5-10.2 [facility] Comment on above: Order Comment: Speci men Type: BLOOD SPECIMENOrdering Facility: [facility] Address: [address] [address] Performed By: #### 2 4321-2 ####[facility] [id number] [place] [address] Chloride [Moles/Vol] 93 mmol/L Low 97-105 [facility] Comment on above: Order Comment: Speci men Type: BLOOD SPECIMENOrdering Facility: [facility] Address: [address] [address] Performed By: #### 2 4321-2 ####[facility] [id number] [place] [address] CO2 [Moles/Vol] 41 mmol/L High 22-30 [facility] Comment on above: Order Comment: Speci men Type: BLOOD SPECIMENOrdering Facility: [facility] Address: [address] [place] [address] Performed By: #### 2 4321-2 ####[facility] [id number] [place] [address] Creatinine [Mass/Vol] 0.48 mg/dL Low 0.58-0.96 [facility] Comment on above: Order Comment: Speci men Type: BLOOD SPECIMENOrdering Facility: [facility] Address: [address] [place] [address] Performed By: #### 2 4321-2 ####[facility] [id number] [place] [address] ESTIMATED GLOMERULAR FILTRATION RATE 109 mL/min/1.73m??? Normal >=60 [facility] Comment on above: Order Comment: Speci men Type: BLOOD SPECIMENOrdering Facility: [facility] Address: [address] [place] [address] Result Comment: Angelique mated Glomerular Filtration Rate (eGFR) is calculated using the 2020 CKD-EPI creatinine equation. This equation utilizes serum creatinine, sex, and age as parameters. The creatinine assay has traceable calibration to isotope dilution-mass spectrometry. Refer to KDIGO guidelines for clinical interpretation. In patients with unstable renal function, e.g. those with acute kidney injury, the eGFR may not accurately reflect actual GFR. Performed By: #### 2 4321-2 ####[facility] [id number] [place] [address] Glucose [Mass/Vol] 94 mg/dL Normal 74-99 [facility] Comment on above: Order Comment: Speci men Type: BLOOD SPECIMENOrdering Facility: [facility] Address: [address] [place] [address] Result Comment: The [place] Diabetes Association (ADA) provides guidance for cutoff values for fasting glucose and random glucose. The ADA defines fasting as no caloric intake for at least 8 hours. Fasting plasma glucose results between 100 to 125 mg/dL indicate increased risk for diabetes (prediabetes). Fasting plasma glucose results greater than or equal to 126 mg/dL meet the criteria for diagnosis of diabetes. In the absence of unequivocal hyperglycemia, results should be confirmed by repeat testing. In a patient with classic symptoms of hyperglycemia or hyperglycemic crisis, random plasma glucose results greater than or equal to 200 mg/dL meet the criteria for diagnosis of diabetes. Reference: Standards of Medical Care in Diabetes 2016, [place] [employer] Association. Diabetes Care. 2016.39(Suppl 1). Performed By: #### 2 4321-2 ####[facility] [id number] [place] [address] Potassium [Moles/Vol] 4.0 mmol/L Normal 3.7-5.1 [facility] Comment on above: Order Comment: Speci men Type: BLOOD SPECIMENOrdering Facility: [facility] Address: [address] [address] Performed By: #### 2 4321-2 ####[facility] [id number] [place] [address] Sodium [Moles/Vol] 139 mmol/L Normal 136-144 [facility] Comment on above: Order Comment: Speci men Type: BLOOD SPECIMENOrdering Facility: [facility] Address: [address] [address] Performed By: #### 2 4321-2 ####[facility] [id number] [place] [address] Urea nitrogen [Mass/Vol] 11 mg/dL Normal 7-21 [facility] Comment on above: Order Comment: Speci men Type: BLOOD SPECIMENOrdering Facility: [facility] Address: [address] [address] Performed By: #### 2 4321-2 ####[facility] [id number] [place] [address] CBC W Auto Differential pane l (Bld)on 04-24-2022 Basophils (Bld) [#/Vol] 0.03 10*3/uL Normal <0.11 [facility] Comment on above: Order Comment: Speci men Type: BLOOD SPECIMENOrdering Facility: [facility] Address: [address] [place] [address] Performed By: #### 5 7021-8 ####[facility] [id number] [place] [address] Basophils/100 WBC (Bld) 0.4 % Normal [facility] Comment on above: Order Comment: Speci men Type: BLOOD SPECIMENOrdering Facility: [facility] Address: [address] [place] [address] Performed By: #### 5 7021-8 ####[facility] [id number] [place] [address] Differential cell count method Nom (Bld) Auto Normal [facility] Comment on above: Order Comment: Speci men Type: BLOOD SPECIMENOrdering Facility: [facility] Address: [address] [address] Performed By: #### 5 7021-8 ####[facility] [id number] [place] [address] Eosinophils (Bld) [#/Vol] 0.10 10*3/uL Normal <0.46 [facility] Comment on above: Order Comment: Speci men Type: BLOOD SPECIMENOrdering Facility: [facility] Address: [address] [address] Performed By: #### 5 7021-8 ####[facility] [id number] [place] [address] Eosinophils/100 WBC (Bld) 1.4 % Normal [facility] Comment on above: Order Comment: Speci men Type: BLOOD SPECIMENOrdering Facility: [facility] Address: [address] [place] [address] Performed By: #### 5 7021-8 ####[facility] [id number] [place] [address] Erythrocyte distribution width (RBC) [Ratio] 13.2 % Normal 11.5-15.0 [facility] Comment on above: Order Comment: Speci men Type: BLOOD SPECIMENOrdering Facility: [facility] Address: [address] [place] [address] Performed By: #### 5 7021-8 ####[facility] [id number] [place] [address] Hematocrit (Bld) [Volume fraction] 42.2 % Normal 36.0-46.0 [facility] Comment on above: Order Comment: Speci men Type: BLOOD SPECIMENOrdering Facility: [facility] Address: [address] [place] [address] Performed By: #### 5 7021-8 ####[facility] [id number] [place] [address] Hemoglobin (Bld) [Mass/Vol] 12.9 g/dL Normal 11.5-15.5 [facility] Comment on above: Order Comment: Speci men Type: BLOOD SPECIMENOrdering Facility: [facility] Address: [address] [place] [address] Performed By: #### 5 7021-8 ####[facility] [id number] [place] [address] Immature granulocytes (Bld) [#/Vol] 10*3/uL Normal <0.10 [facility] Comment on above: Order Comment: Speci men Type: BLOOD SPECIMENOrdering Facility: [facility] Address: [address] [place] [address] Performed By: #### 5 7021-8 ####[facility] [id number] [place] [address] Immature granulocytes/100 WBC (Bld) 0.3 % Normal [facility] Comment on above: Order Comment: Speci men Type: BLOOD SPECIMENOrdering Facility: [facility] Address: [address] [address] Performed By: #### 5 7021-8 ####[facility] [id number] [place] [address] Lymphocytes (Bld) [#/Vol] 2.33 10*3/uL Normal 1.00-4.00 [facility] Comment on above: Order Comment: Speci men Type: BLOOD SPECIMENOrdering Facility: [facility] Address: [address] [address] Performed By: #### 5 7021-8 ####[facility] [id number] [place] [address] Lymphocytes/100 WBC (Bld) 32.3 % Normal [facility] Comment on above: Order Comment: Speci men Type: BLOOD SPECIMENOrdering Facility: [facility] Address: [address] [place] [address] Performed By: #### 5 7021-8 ####[facility] [id number] [place] [address] MCH (RBC) [Entitic mass] 27.2 pg Normal 26.0-34.0 [facility] Comment on above: Order Comment: Speci men Type: BLOOD SPECIMENOrdering Facility: [facility] Address: [address] [place] [address] Performed By: #### 5 7021-8 ####[facility] [id number] [place] [address] MCHC (RBC) [Mass/Vol] 30.6 g/dL Normal 30.5-36.0 [facility] Comment on above: Order Comment: Speci men Type: BLOOD SPECIMENOrdering Facility: [facility] Address: [address] [place] [address] Performed By: #### 5 7021-8 ####[facility] [id number] [place] [address] MCV (RBC) [Entitic vol] 89.0 fL Normal 80.0-100.0 [facility] Comment on above: Order Comment: Speci men Type: BLOOD SPECIMENOrdering Facility: [facility] Address: [address] [place] [address] Performed By: #### 5 7021-8 ####[facility] [id number] [place] [address] Monocytes (Bld) [#/Vol] 0.66 10*3/uL Normal <0.87 [facility] Comment on above: Order Comment: Speci men Type: BLOOD SPECIMENOrdering Facility: [facility] Address: [address] [place] [address] Performed By: #### 5 7021-8 ####[facility] [id number] [place] [address] Monocytes/100 WBC (Bld) 9.2 % Normal [facility] Comment on above: Order Comment: Speci men Type: BLOOD SPECIMENOrdering Facility: [facility] Address: [address] [place] [address] Performed By: #### 5 7021-8 ####[facility] [id number] [place] [address] Neutrophils (Bld) [#/Vol] 4.07 10*3/uL Normal 1.45-7.50 [facility] Comment on above: Order Comment: Speci men Type: BLOOD SPECIMENOrdering Facility: [facility] Address: [address] [place] [address] Performed By: #### 5 7021-8 ####[facility] [id number] [place] [address] Neutrophils/100 WBC (Bld) 56.4 % Normal [facility] Comment on above: Order Comment: Speci men Type: BLOOD SPECIMENOrdering Facility: [facility] Address: [address] [address] Performed By: #### 5 7021-8 ####[facility] [id number] [place] [address] Nucleated RBC (Bld) [#/Vol] 10*3/uL Normal <0.01 [facility] Comment on above: Order Comment: Speci men Type: BLOOD SPECIMENOrdering Facility: [facility] Address: [address] [address] Performed By: #### 5 7021-8 ####[facility] [id number] [place] [address] Nucleated RBC/100 WBC (Bld) [Ratio] 0.0 /100 WBC Normal [facility] Comment on above: Order Comment: Speci men Type: BLOOD SPECIMENOrdering Facility: [facility] Address: [address] [place] [address] Performed By: #### 5 7021-8 ####[facility] LAB[facility] [id number] [place] [address] Platelet mean volume (Bld) [Entitic vol] 8.9 fL Low 9.0-12.7 [facility] Comment on above: Order Comment: Speci men Type: BLOOD SPECIMENOrdering Facility: [facility] Address: [address] [place] [address] Performed By: #### 5 7021-8 ####[facility] [id number] [place] [address] Platelets (Bld) [#/Vol] 401 10*3/uL High 150-400 [facility] Comment on above: Order Comment: Speci men Type: BLOOD SPECIMENOrdering Facility: [facility] Address: [address] [place] [address] Performed By: #### 5 7021-8 ####[facility] [id number] [place] [address] RBC (Bld) [#/Vol] 4.74 10*6/uL Normal 3.90-5.20 [facility] Comment on above: Order Comment: Speci men Type: BLOOD SPECIMENOrdering Facility: [facility] Address: [address] [place] [address] Performed By: #### 5 7021-8 ####[facility] [id number] [place] [address] WBC (Bld) [#/Vol] 7.21 10*3/uL Normal 3.70-11.00 [facility] Comment on above: Order Comment: Speci men Type: BLOOD SPECIMENOrdering Facility: [facility] Address: [address] [place] [address] Performed By: #### 5 7021-8 ####[facility] [id number] [place] [address] CNNURSEon 04-24-2022 [facility] Nurse Visit (HEMASA) CARA GUERRERO ([id number]) 1960 F Date Time Provider Department 04/24/22 11:00 AM AGRY NURSE ANGUS [facility]NAS During your visit today, we recorded the following information about you: Marie Corrales 04/24/2022 11:30 AM Signed EKG performed as ordered. Electronically sent to [facility] main. Placed paper copy in scan folder. Marie Corrales MA Referring Provider: VITOR FARIAS [[id number]] Allergies As of Date: 04/24/2022 Noted Allergy Reaction LEVOQUIN (LEVOFLOXACIN) 03/02/2018 16 - Unknown Comments: Tendonitis but can take avalox Date Reviewed: 03/14/2022 Reviewed by: Julisa Pressley LPN - Fully Assessed Visit Diagnosis:Lung mass [R91.8] Order(s):ECG COMPLETE [ECG01] Order #: [id number] Prescriptions as of 04/24/2022 - iv contrast (will be provided with radiology test) CT Chest W -Inject, intravenously, once for 1 dose.No IV access, insert saline lock prior to the beginning of sedation, infusion, injection of imaging exam. Discontinue saline lock post exam. If Pt. has a central line or IVAD, may access for administration according to line specific nursing protocol. Once exam is complete flush line and de-access according to line specific nursing protocol in the CT contrast administration guidelines link. - iv contrast (will be provided with radiology test) CT Chest W -Inject, intravenously, once for 1 dose.No IV access, insert saline lock prior to the beginning of sedation, infusion, injection of imaging exam. Discontinue saline lock post exam. If Pt. has a central line or IVAD, may access for administration according to line specific nursing protocol. Once exam is complete flush line and de-access according to line specific nursing protocol in the CT contrast administration guidelines link. - budesonide (PULMICORT) 1 mg/2 mL nebulizer solution INHALE 1 VIAL VIA NEBULIZER TWICE A DAY - iv contrast (will be provided with radiology test) CT Chest W -Inject, intravenously, once for 1 dose.No IV access, insert saline lock prior to the beginning of sedation, infusion, injection of imaging exam. Discontinue saline lock post exam. If Pt. has a central line or IVAD, may access for administration according to line specific nursing protocol. Once exam is complete flush line and de-access according to line specific nursing protocol in the CT contrast administration guidelines link. - STIOLTO RESPIMAT 2.5-2.5 mcg/actuation mist TAKE 2 PUFFS BY MOUTH EVERY DAY - montelukast (SINGULAIR) 10 mg tablet Take 10 mg by mouth daily at bedtime. - ipratropium/albuterol sulfate (DUONEB INHALATION) Inhale as instructed. - senna-docusate (SENOKOT-S) 8.6-50 mg per tablet Take 2 tablets by mouth twice daily as needed. - albuterol (PROVENTIL) 2.5 mg/0.5 mL nebulizar solution PEDIATRIC ASTHMA Inhale 2.5-5 mg as instructed as directed. - Cetirizine 10 mg cap Take by mouth. - MI-24 200 mg 24 hr capsule Take 200 mg by mouth once daily. Problem List As Of Date 04/24/2022 Noted Resolved Lung nodule, solitary [R91.1] 03/02/2018 Centrilobular emphysema (HCC) [J43.2] 03/02/2018 Chronic respiratory failure with hypoxia (HCC) *03/02/2018 Non-small cell cancer of left lung (HCC) [C34.9*04/07/2018 Visit Notes: >> Marie Corrales [facility] Apr 24, 2022 11:29 AM Status: Signed EKG performed as ordered. Electronically sent to [facility] main. Placed paper copy in scan folder. Marie Corrales MA Encounter Status:Closed by MARIE CORRALES on 04/24/22 [facility] 04-24-2022 CNPN Telephone (PUBRON) CARA GUERRERO ([id number]) 1960 F Date Time Provider Department 04/24/22 FLORINA ESTRADA PUBRON During your visit today, we recorded the following information about you: Allergies As of Date: 04/24/2022 Noted Allergy Reaction LEVOQUIN (LEVOFLOXACIN) 03/02/2018 16 - Unknown Comments: Tendonitis but can take avalox Date Reviewed: 03/14/2022 Reviewed by: Julisa Pressley LPN - Fully Assessed Reason for Visit: Appointment [186] Cmt: PreOp Bronch Prescriptions as of 04/24/2022 - iv contrast (will be provided with radiology test) CT Chest W -Inject, intravenously, once for 1 dose.No IV access, insert saline lock prior to the beginning of sedation, infusion, injection of imaging exam. Discontinue saline lock post exam. If Pt. has a central line or IVAD, may access for administration according to line specific nursing protocol. Once exam is complete flush line and de-access according to line specific nursing protocol in the CT contrast administration guidelines link. - iv contrast (will be provided with radiology test) CT Chest W -Inject, intravenously, once for 1 dose.No IV access, insert saline lock prior to the beginning of sedation, infusion, injection of imaging exam. Discontinue saline lock post exam. If Pt. has a central line or IVAD, may access for administration according to line specific nursing protocol. Once exam is complete flush line and de-access according to line specific nursing protocol in the CT contrast administration guidelines link. - budesonide (PULMICORT) 1 mg/2 mL nebulizer solution INHALE 1 VIAL VIA NEBULIZER TWICE A DAY - iv contrast (will be provided with radiology test) CT Chest W -Inject, intravenously, once for 1 dose.No IV access, insert saline lock prior to the beginning of sedation, infusion, injection of imaging exam. Discontinue saline lock post exam. If Pt. has a central line or IVAD, may access for administration according to line specific nursing protocol. Once exam is complete flush line and de-access according to line specific nursing protocol in the CT contrast administration guidelines link. - STIOLTO RESPIMAT 2.5-2.5 mcg/actuation mist TAKE 2 PUFFS BY MOUTH EVERY DAY - montelukast (SINGULAIR) 10 mg tablet Take 10 mg by mouth daily at bedtime. - ipratropium/albuterol sulfate (DUONEB INHALATION) Inhale as instructed. - senna-docusate (SENOKOT-S) 8.6-50 mg per tablet Take 2 tablets by mouth twice daily as needed. - albuterol (PROVENTIL) 2.5 mg/0.5 mL nebulizar solution PEDIATRIC ASTHMA Inhale 2.5-5 mg as instructed as directed. - Cetirizine 10 mg cap Take by mouth. - MI-24 200 mg 24 hr capsule Take 200 mg by mouth once daily. Problem List As Of Date 04/24/2022 Noted Resolved Lung nodule, solitary [R91.1] 03/02/2018 Centrilobular emphysema (HCC) [J43.2] 03/02/2018 Chronic respiratory failure with hypoxia (HCC) *03/02/2018 Non-small cell cancer of left lung (HCC) [C34.9*04/07/2018 Encounter Status:Closed by FLORINA ESTRADA on 04/24/22 Normal [facility] [id number] 04-24-2022 ECG01 Ventricular Rate : 1 03 BPM Atrial Rate : 103 BPM P-R Interval : 162 ms QRS Duration : 72 ms Q-T Interval : 340 ms QTC Calculation(Bazett) : 445 ms Calculated P Avon : 85 degrees Calculated R Avon : 82 degrees Calculated T Avon : 85 degrees SINUS TACHYCARDIA RIGHT ATRIAL ENLARGEMENT BORDERLINE ECG Reconfirmed by JOSE JIN MD ([id number]) on 05/04/2022 1:40:49 PM NAME : CARA GUERRERO PID : [id number] : 1960 Gender : Female Race : ORD : Procedure Date : Apr 24 2022 12:35:15 Edit Date : May 04 2022 13:40:50 Diagnosis: SINUS TACHYCARDIA RIGHT ATRIAL ENLARGEMENT BORDERLINE ECG Reconfirmed by JOSE JIN MD ([id number]) on 05/04/2022 1:40:49 PM Test Reason : Location : [facility] [place] [facility] [place] By : JOSE JIN MD Edited By : JOSE JIN MD Referred By : , Acquired by : Ermias HAIRSTON [facility] 04-23-2022 CNPN Telephone (NCCAP) CARA GUERRERO ([id number]) 1960 F Date Time Provider Department 04/23/22 ABDI ISRAEL NCCCHADD During your visit today, we recorded the following information about you: Alex Nash 04/23/2022 9:22 AM Signed Called patient to schedule her for EKG AND labs per e-mail. No answer, LMOV requesting a returned phone call. Alex Nash 04/23/2022 9:59 AM Signed Patient has been scheduled for both AND confirmed appt day AND time. Alex Nash Allergies As of Date: 04/23/2022 Noted Allergy Reaction LEVOQUIN (LEVOFLOXACIN) 03/02/2018 16 - Unknown Comments: Tendonitis but can take avalox Date Reviewed: 03/14/2022 Reviewed by: Julisa Pressley LPN - Fully Assessed Reason for Visit: Appointment [186] Prescriptions as of 04/29/2022 - budesonide (PULMICORT) 1 mg/2 mL nebulizer solution INHALE 1 VIAL VIA NEBULIZER TWICE A DAY - STIOLTO RESPIMAT 2.5-2.5 mcg/actuation mist TAKE 2 PUFFS BY MOUTH EVERY DAY - montelukast (SINGULAIR) 10 mg tablet Take 10 mg by mouth daily at bedtime. - ipratropium/albuterol sulfate (DUONEB INHALATION) Inhale as instructed. - senna-docusate (SENOKOT-S) 8.6-50 mg per tablet Take 2 tablets by mouth twice daily as needed. - albuterol (PROVENTIL) 2.5 mg/0.5 mL nebulizar solution PEDIATRIC ASTHMA Inhale 2.5-5 mg as instructed as directed. - Cetirizine 10 mg cap Take by mouth. - MI-24 200 mg 24 hr capsule Take 200 mg by mouth once daily. Problem List As Of Date 04/23/2022 Noted Resolved Lung nodule, solitary [R91.1] 03/02/2018 Centrilobular emphysema (HCC) [J43.2] 03/02/2018 Chronic respiratory failure with hypoxia (HCC) *03/02/2018 Non-small cell cancer of left lung (HCC) [C34.9*04/07/2018 Encounter Status:Closed by ALEX NASH on 04/29/22 [facility] 04-22-2022 [facility] Telephone (RADTSA) CARA GUERRERO ([id number]) 1960 F Date Time Provider Department 04/22/22 ABDI ISRAEL During your visit today, we recorded the following information about you: Julisa Pressley LPN 04/22/2022 9:39 AM Signed I called to notify Cara that Dr. Farias's office will be calling her to schedule bronchoscopy. She states she recently had the flu and her breathing was terrible at that time. She said her symptoms are improving now that she is over the flu. She denies questions at this time. Julisa Pressley LPN Allergies As of Date: 04/22/2022 Noted Allergy Reaction LEVOQUIN (LEVOFLOXACIN) 03/02/2018 16 - Unknown Comments: Tendonitis but can take avalox Date Reviewed: 03/14/2022 Reviewed by: Julisa Pressley LPN - Fully Assessed Reason for Visit: Patient Update [1234] Appointment [186] Prescriptions as of 04/25/2022 - iv contrast (will be provided with radiology test) CT Chest W -Inject, intravenously, once for 1 dose.No IV access, insert saline lock prior to the beginning of sedation, infusion, injection of imaging exam. Discontinue saline lock post exam. If Pt. has a central line or IVAD, may access for administration according to line specific nursing protocol. Once exam is complete flush line and de-access according to line specific nursing protocol in the CT contrast administration guidelines link. - iv contrast (will be provided with radiology test) CT Chest W -Inject, intravenously, once for 1 dose.No IV access, insert saline lock prior to the beginning of sedation, infusion, injection of imaging exam. Discontinue saline lock post exam. If Pt. has a central line or IVAD, may access for administration according to line specific nursing protocol. Once exam is complete flush line and de-access according to line specific nursing protocol in the CT contrast administration guidelines link. - budesonide (PULMICORT) 1 mg/2 mL nebulizer solution INHALE 1 VIAL VIA NEBULIZER TWICE A DAY - iv contrast (will be provided with radiology test) CT Chest W -Inject, intravenously, once for 1 dose.No IV access, insert saline lock prior to the beginning of sedation, infusion, injection of imaging exam. Discontinue saline lock post exam. If Pt. has a central line or IVAD, may access for administration according to line specific nursing protocol. Once exam is complete flush line and de-access according to line specific nursing protocol in the CT contrast administration guidelines link. - STIOLTO RESPIMAT 2.5-2.5 mcg/actuation mist TAKE 2 PUFFS BY MOUTH EVERY DAY - montelukast (SINGULAIR) 10 mg tablet Take 10 mg by mouth daily at bedtime. - ipratropium/albuterol sulfate (DUONEB INHALATION) Inhale as instructed. - senna-docusate (SENOKOT-S) 8.6-50 mg per tablet Take 2 tablets by mouth twice daily as needed. - albuterol (PROVENTIL) 2.5 mg/0.5 mL nebulizar solution PEDIATRIC ASTHMA Inhale 2.5-5 mg as instructed as directed. - Cetirizine 10 mg cap Take by mouth. - MI-24 200 mg 24 hr capsule Take 200 mg by mouth once daily. Problem List As Of Date 04/22/2022 Noted Resolved Lung nodule, solitary [R91.1] 03/02/2018 Centrilobular emphysema (HCC) [J43.2] 03/02/2018 Chronic respiratory failure with hypoxia (HCC) *03/02/2018 Non-small cell cancer of left lung (HCC) [C34.9*04/07/2018 Encounter Status:Closed by JULISA PRESSLEY on 04/25/22 Normal [facility] Covid-19 PCR (CVDTBH)on 03-14 SARS-CoV-2 (COVID-19) RNA KRUNAL+probe Ql (Unsp spec) Not detected Normal NOT DETECTED [facility] Comment on above: Result Comment: This test is not yet approved or cleared by the [place] FDA. When there are no FDA-approved or cleared tests available, and other criteria are met, FDA can make tests available under an emergency access mechanism called an Emergency Use Authorization (EUA). The EUA for this test is supported by the [place] of Health and Human Service's (HHS's) declaration that circumstances exist to justify the emergency use of in vitro diagnostics for the detection and/or diagnosis of the virus that causes COVID-19. This EUA will remain in effect (meaning this test can be used) for the duration of the COVID-19 declaration justifying emergency of IVDs, unless it is terminated or revoked by FDA (after which the test may no longer be used). When diagnostic testing is negative, the possibility of a false negative should be considered in the context of a patient's recent exposures and the presence of clinical signs and symptoms consistent with SARS-CoV-2. Performed By: #### Gerry INGRAM CMP #### [facility] [address] [place] [address] Dr. Geri Pradhan INFLUENZA A AND B AGon 04-08 [facility] SEE BELOW Normal [facility] Comment on above: Result Comment: Nega tive for Flu A protein angiten. Infection due to Flu A cannot be ruled out. Flu A angiten in the sample may be below the detection limit of the test. Performed By: #### Gerry INGRAM CMP #### [facility] [address] [place] [address] Dr. [facility] Normal [facility] Comment on above: Result Comment: Nega tive for Flu B protein antigen. Infection due to Flu B cannot be ruled out. Flu B antigen in the sample may be below the detection limit of the test. Performed By: #### Gerry INGRAM, CMP #### [facility] [address] [place] [address] Dr. Geri Pradhan INFLUENZA A AG Negative Normal NEGATIVE SEE COMMENT [facility] Comment on above: Performed By: #### Grery INGRAM CMP #### [facility] [address] [place] [address] Dr. Geri Pradhan INFLUENZA B AG Negative Normal NEGATIVE SEE COMMENT [facility] Comment on above: Performed By: ###Lily INGRAM, CMP #### [facility] [address] [place] [address] Dr. Geri Pradhan INTERNAL CONTROLS Within Normal Limits Normal Wi thin Normal Limits [facility] Comment on above: Performed By: #### Gerry INGRAM, CMP #### [facility] [address] [place] [address] Dr. Geri Fink 03-14-2022 CNOV Office Visit (RADTSA ) CARA GUERRERO ([id number]) 1960 F Date Time Provider Department 03/14/22 11:00 AM ABDI ISRAEL During your visit today, we recorded the following information about you: Temperature Pulse Respiration Weight 97.8 degrees 101/minute 16/minute 49.9 kg Abdi Israel MD 03/26/2022 4:59 AM Addendum Radiation Oncology - Follow Up Note PATIENT NAME: Cara Guerrero PATIENT DIAGNOSIS/PATIENT IDENTIFICATION: Ms. Guerrero is a 61-year-old woman with severe COPD, who is diagnosed with Stage IA3, [id number], non-small cell lung cancer arising from a nodule in the left upper lobe of the lung adjacent to the aortic arch. Given her severe COPD/emphysema requiring supplemental oxygen and her other medical comorbidities, she was not felt to be a surgical candidate and opted for definitive non-operative management of her early stage lung cancer with stereotactic body radiation therapy (SBRT) which she completed on 05/14/2018 (5000 cGy in 5 fractions). INTERVAL HISTORY/ROS: Ms. Guerrero returns to clinic today for follow-up almost three years after the completion of her SBRT treatments and ten months since her last visit on 06/06/2021. CT examination of the chest at that time was stable with no substantial changes. In the interim, she had a repeat CT examination of the chest on 02/15/2022 ordered by her primary care physician Dr. Kenyon which was prompted by an episode of hemoptysis approximately 2 weeks prior. She notes this was an isolated episode and has not had repeat hemoptysis. CT imaging showed interval increase in the consolidation/mass in the left upper lobe measuring approximately 5.7 x 6.2 cm with concern for recurrent/progressing disease versus posttreatment changes. She also met with her cross tie maker Dr. Cross after her CT results were available. She notes that prior to this episode of hemoptysis, she has been having intermittent colds and difficulties with breathing since the summer which she attributed to contact with her grandchildren who were sick. She has been on a few different courses of antibiotics with temporary improvement but no hospitalization for COPD exacerbation. She continues on supplemental oxygen. In addition to her dyspnea, she also notes occasional discomfort in her chest but otherwise denies any recent fevers, chills, headaches, difficulty with speech/swallowing, abdominal pain, nausea, vomiting, change in bowel/urinary habits, difficulty with gait/balance, recent falls, etc. The remainder of the review of systems was performed and was otherwise noncontributory. ALLERGIES ALLERGIES Allergen Reactions Levoquin [Levofloxa* Unknown Tendonitis but can take avalox MEDICATIONS: Current Outpatient Medications: budesonide (PULMICORT) 1 mg/2 mL nebulizer solution STIOLTO RESPIMAT 2.5-2.5 mcg/actuation mist montelukast (SINGULAIR) 10 mg tablet ipratropium/albuterol sulfate (DUONEB INHALATION) senna-docusate (SENOKOT-S) 8.6-50 mg per tablet albuterol (PROVENTIL) 2.5 mg/0.5 mL nebulizar solution PEDIATRIC ASTHMA Cetirizine 10 mg cap MI-24 200 mg 24 hr capsule iv contrast (will be provided with radiology test) iv contrast (will be provided with radiology test) iv contrast (will be provided with radiology test) PHYSICAL EXAM: GENERAL: middle-aged woman sitting in chair in no acute distress. VITALS: Pulse 101 Temp 97.8 Resp 16 Wt 110 lb (49.9kg) SpO2 96[O2 at 2L/NC]% KPS: 80 HEENT: NC/AT, anicteric sclera HEART: S1S2 LUNGS: non-labored breathing ABDOMEN: soft MUSCULOSKELETAL: no peripheral edema, moves all extremities. NEURO: no focal deficit; AANDO X3. RADIOLOGIC DATA: PET/CT (03/07/2022) IMPRESSION: Head and Neck: * No evidence of FDG avid neoplastic process Chest: * 2.3 x 1.7 cm left upper lobe hypermetabolic nodular density suspicious for neoplastic process. Tissue sampling as clinically indicated * 1.7 x 1.1 cm left supraclavicular lymph node is suspicious for metastatic disease; readily amenable to percutaneous sampling * Left axillary and subpectoral mildly avid lymph nodes, metastatic disease not excluded. Abdomen and pelvis: * Mild nodularity of the left adrenal gland is slightly FDG avid, favored to be adenomatous, although early metastatic disease cannot be excluded correlation with adrenal protocol MRI MRI may be performed, as clinically indicated * Diffuse proximal gastric uptake likely secondary to gastritis or physiologic. Clinical correlation regarding endoscopic evaluation. Musculoskeletal: * No neoplastic hypermetabolic lesions CT Chest (02/15/2022) 2018/pre-radiation PET compared to current 02/2022 PET. ASSESSMENT AND PLAN: Ms. Guerrero is a 61-year-old woman with severe COPD, who is diagnosed with Stage IA3, [id number], non-small cell lung cancer arising from a nodule in the left uppe (more content not included)... Normal [facility] NM PET/CT SKULL-THIGH INITon 03-07-2022 NM PET/CT SKULL-THIGH INIT * * *Final Report* * * DATE OF EXAM: Mar 07 2022 9:10AM NRN [id number] - NM PET/CT SKULL-THIGH INIT / PROCEDURE REASON: Neoplasm of lung * * * * Physician Interpretation * * * * RESULT: FDG PET/CT SCAN 03/07/2022 7:29 AM: CLINICAL HISTORY: 61 years old Female with Neoplasm of lung INDICATION: Subsequent treatment strategy. TECHNIQUE: 7.2 mCi F-18 FDG IV, followed about 1 hour later by PET imaging from base of the skull to proximal femur. Non contrast CT was performed for attenuation correction and anatomic localization purposes. CT Dose-Length Product (DLP): 122 mGy*cm. CT Dose Reduction Employed: Yes BLOOD GLUCOSE: 84 mg/dL COMPARISON: None. CORRELATION: 02/15/[address] RESULT: Note- The SUV value is for reference purposes. Due to technical factors and uncontrolled variables, caution is advised when using SUV to differentiate malignant from nonmalignant processes, or to assess follow-up/treatment response. Reference max SUV: Mediastinum blood pool activity: max SUV 1.8 HEAD AND NECK: No pathologically enlarged or hypermetabolic cervical lymphadenopathy. Uptake in the oral cavity, tonsils, salivary glands, extraocular muscles is likely physiologic. Substantially limited evaluation of the intracranial structures due to the physiologic russell matter uptake. CHEST: Lungs and tracheobronchial tree: 2.3 x 1.7 cm medial left upper lobe nodular density on 4:87 with max SUV 5.8, spiculated margins noted. More confluent bandlike density in the posterior left upper lobe on 4:83-90 with max SUV 4.4 Inflammatory, underlying neoplasm not excluded; attention follow-up studies. Emphysema. Other small nodular opacities are likely too small to characterize on FDG PET/CT; follow-up chest CT is suggested. Pleura and pericardium: No significantly FDG avid pleural effusion. Mediastinum and Lymph nodes: 1.7 x 1.1 cm left supraclavicular node on 4:57 with max SUV 4.4, corresponding to 3:1 on the referenced chest CT A few left axillary and subpectoral lymph nodes, index lesions: 0.8 x 0.7 cm left axillary on 4:74 with max SUV 3.7, and 1.1 x 0.5 cm left subpectoral on 4:83 with max SUV 4.0 No hypermetabolic hilar, or mediastinal lymphadenopathy. Chest wall: No hypermetabolic lesion ABDOMEN AND PELVIS: Liver: Mildly heterogeneous uptake, no definite hypermetabolic lesion. Biliary: No focal FDG avidity. Spleen: No FDG avidity. No splenomegaly. Pancreas: No abnormal FDG avidity or duct dilation. Adrenals: No FDG avid lesion right adrenal. 1.2 x 0.7 cm left adrenal nodularity with max SUV 2.9 (hepatic parenchymal max SUV 2.6). tract: Within the limitation of the physiologic FDG excretion no hydronephrosis or grossly hypermetabolic lesion. GI tract: Diffuse proximal gastric uptake, max SUV 4.4. Areas of uptake are favored to be physiologic or due to medication effect, which limits evaluation of underlying lesions. Lymph nodes: No abdominal or pelvic hypermetabolic lymphadenopathy. Mesentery/Peritoneum: No focal hypermetabolic lesion. Vasculature: Vascular patency cannot be assessed due to lack of IV contrast. There are atherosclerotic calcifications without aneurysmal dilation. Pelvis: No focal hypermetabolic lesion. Abdominopelvic wall: No hypermetabolic lesion MUSCULOSKELETAL: There are no hypermetabolic osseous lesions. Camera Engineer (topogram) images: No additional findings. IMPRESSION: Head and Neck: * No evidence of FDG avid neoplastic process Chest: * 2.3 x 1.7 cm left upper lobe hypermetabolic nodular density suspicious for neoplastic process. Tissue sampling as clinically indicated * 1.7 x 1.1 cm left supraclavicular lymph node is suspicious for metastatic disease; readily amenable to percutaneous sampling * Left axillary and subpectoral mildly avid lymph nodes, metastatic disease not excluded. Abdomen and pelvis: * Mild nodularity of the left adrenal gland is slightly FDG avid, favored to be adenomatous, although early metastatic disease cannot be excluded correlation with adrenal protocol MRI MRI may be performed, as clinically indicated * Diffuse proximal gastric uptake likely secondary to gastritis or physiologic. Clinical correlation regarding endoscopic evaluation. Musculoskeletal: * No neoplastic hypermetabolic lesions NOTE: This report was created using voice recognition dictation software. If there is a concern for errors, please have the clinician contact the report author for clarification. Transcribe Date/Time: Mar 07 2022 9:14A Dictated by: DELON ALMONTE MD This examination was interpreted and the report reviewed and electronically signed by: DELON ALMONTE MD on Mar 07 2022 9:42AM EST Thank you for allowing us to participate in the care of your patient. Should there be any questions regarding this interpretation, please call [phone]. If you are unable to reach us at the number a (more content not included)... Normal [facility] CNPHiwot 02-20-2022 CNPN Telephone (RADTSA) CARA GUERRERO ([id number]) 1960 F Date Time Provider Department 02/20/22 ABDI ISRAEL During your visit today, we recorded the following information about you: Julisa Pressley LPN 02/20/2022 2:[address] Israel please sign pended PET scan order that you requested for Judy. Hollis: Please schedule PET as indicated below. Thanks Julisa Pressley LPN Spoke with Dr. Cross and reviewed recent scan ... please set up Cara Lang for PET/CT as soon as possible then follow-up to review Allergies As of Date: 02/20/2022 Noted Allergy Reaction LEVOQUIN (LEVOFLOXACIN) 03/02/2018 16 - Unknown Comments: Tendonitis but can take avalox Date Reviewed: 06/06/2021 Reviewed by: Julisa Pressley LPN - Fully Assessed Reason for Visit: Orders [681] Prescriptions as of 02/20/2022 - iv contrast (will be provided with radiology test) CT Chest W -Inject, intravenously, once for 1 dose.No IV access, insert saline lock prior to the beginning of sedation, infusion, injection of imaging exam. Discontinue saline lock post exam. If Pt. has a central line or IVAD, may access for administration according to line specific nursing protocol. Once exam is complete flush line and de-access according to line specific nursing protocol in the CT contrast administration guidelines link. - iv contrast (will be provided with radiology test) CT Chest W -Inject, intravenously, once for 1 dose.No IV access, insert saline lock prior to the beginning of sedation, infusion, injection of imaging exam. Discontinue saline lock post exam. If Pt. has a central line or IVAD, may access for administration according to line specific nursing protocol. Once exam is complete flush line and de-access according to line specific nursing protocol in the CT contrast administration guidelines link. - budesonide (PULMICORT) 1 mg/2 mL nebulizer solution INHALE 1 VIAL VIA NEBULIZER TWICE A DAY - iv contrast (will be provided with radiology test) CT Chest W -Inject, intravenously, once for 1 dose.No IV access, insert saline lock prior to the beginning of sedation, infusion, injection of imaging exam. Discontinue saline lock post exam. If Pt. has a central line or IVAD, may access for administration according to line specific nursing protocol. Once exam is complete flush line and de-access according to line specific nursing protocol in the CT contrast administration guidelines link. - STIOLTO RESPIMAT 2.5-2.5 mcg/actuation mist TAKE 2 PUFFS BY MOUTH EVERY DAY - montelukast (SINGULAIR) 10 mg tablet Take 10 mg by mouth daily at bedtime. - ipratropium/albuterol sulfate (DUONEB INHALATION) Inhale as instructed. - senna-docusate (SENOKOT-S) 8.6-50 mg per tablet Take 2 tablets by mouth twice daily as needed. - albuterol (PROVENTIL) 2.5 mg/0.5 mL nebulizar solution PEDIATRIC ASTHMA Inhale 2.5-5 mg as instructed as directed. - Cetirizine (ZYRTEC) 10 mg cap Take by mouth. - MI-24 200 mg 24 hr capsule Take 200 mg by mouth once daily. Problem List As Of Date 02/20/2022 Noted Resolved Lung nodule, solitary [R91.1] 03/02/2018 Centrilobular emphysema (HCC) [J43.2] 03/02/2018 Chronic respiratory failure with hypoxia (HCC) *03/02/2018 Non-small cell cancer of left lung (HCC) [C34.9*04/07/2018 Encounter Status:Closed by JUL[facility] GU[facility] ([id number]) 1960 F Date Time Provider Department 02/20/22 ABDI ISRAEL During your visit today, we recorded the following information about you: Julisa Pressley LPN 02/20/2022 2:07 PM Signed PET scan order pending your approval. Alex: Please schedule PET scan as indicated below. Julisa Pressley LPN Spoke with Dr. Cross and reviewed recent scan ... please set up Cara Lang for PET/CT as soon as possible then follow-up to review Alex Nash 02/20/2022 2:13 PM Signed I will have to work with Shruthi Martinez To find next available PET. Also, patient insurance will take at least 2 weeks. Alex Nash 02/21/2022 11:41 AM Signed Patient has been scheduled and notified of appointment. Alex Nash Allergies As of Date: 02/20/2022 Noted Allergy Reaction LEVOQUIN (LEVOFLOXACIN) 03/02/2018 16 - Unknown Comments: Tendonitis but can take avalox Date Reviewed: 06/06/2021 Reviewed by: Julisa Pressley LPN - Fully Assessed Reason for Visit: Orders [681] Primary Visit Diagnosis:Neoplasm of lung [D49.1] Order(s):NM PET/CT SKULL-THIGH INITIAL [[id number]] Order #: [id number] FUTURE Prescriptions as of 02/21/2022 - iv contrast (will be provided with radiology test) CT Chest W -Inject, intravenously, once for 1 dose.No IV access, insert saline lock prior to the beginning of sedation, infusion, injection of imaging exam. Discontinue saline lock post exam. If Pt. has a central line or IVAD, may access for administration according to line specific nursing protocol. Once exam is complete flush line and de-access according to line specific nursing protocol in the CT contrast administration guidelines link. - iv contrast (will be provided with radiology test) CT Chest W -Inject, intravenously, once for 1 dose.No IV access, insert saline lock prior to the beginning of sedation, infusion, injection of imaging exam. Discontinue saline lock post exam. If Pt. has a central line or IVAD, may access for administration according to line specific nursing protocol. Once exam is complete flush line and de-access according to line specific nursing protocol in the CT contrast administration guidelines link. - budesonide (PULMICORT) 1 mg/2 mL nebulizer solution INHALE 1 VIAL VIA NEBULIZER TWICE A DAY - iv contrast (will be provided with radiology test) CT Chest W -Inject, intravenously, once for 1 dose.No IV access, insert saline lock prior to the beginning of sedation, infusion, injection of imaging exam. Discontinue saline lock post exam. If Pt. has a central line or IVAD, may access for administration according to line specific nursing protocol. Once exam is complete flush line and de-access according to line specific nursing protocol in the CT contrast administration guidelines link. - STIOLTO RESPIMAT 2.5-2.5 mcg/actuation mist TAKE 2 PUFFS BY MOUTH EVERY DAY - montelukast (SINGULAIR) 10 mg tablet Take 10 mg by mouth daily at bedtime. - ipratropium/albuterol sulfate (DUONEB INHALATION) Inhale as instructed. - senna-docusate (SENOKOT-S) 8.6-50 mg per tablet Take 2 tablets by mouth twice daily as needed. - albuterol (PROVENTIL) 2.5 mg/0.5 mL nebulizar solution PEDIATRIC ASTHMA Inhale 2.5-5 mg as instructed as directed. - Cetirizine (ZYRTEC) 10 mg cap Take by mouth. - MI-24 200 mg 24 hr capsule Take 200 mg by mouth once daily. Problem List As Of Date 02/20/2022 Noted Resolved Lung nodule, solitary [R91.1] 03/02/2018 Centrilobular emphysema (HCC) [J43.2] 03/02/2018 Chronic respiratory failure with hypoxia (HCC) *03/02/2018 Non-small cell cancer of left lung (HCC) [C34.9*04/07/2018 Encounter Status:Closed by JULISA PRESSLEY on 02/21/22 Normal [facility] CT CHEST W CONon 02-17-2022 CT CHEST W CON EXAMINATION: CT CHES T W CON HISTORY: Primary malignant neoplasm of bronchus COMPARISON: 05/29/2021 TECHNIQUE: Multi-planar CT images were created with IV contrast. Axial, Coronal, and Sagittal images. Dose reduction techniques were achieved by using automated exposure control and/or adjustment of mA and/or kV according to patient size and/or use of iterative reconstruction technique. FINDINGS: LUNGS: There is been interval marked increase in a spiculated left upper lobe irregular mass measuring 5.7 x 6.2 cm on axial image 27 with presence of air bronchograms along the inferior regions. This lesion extends from the mediastinum to the lateral and posterior pleura. Some mild bronchiectasis and peribronchial thickening most significant in the right middle lobe. Severe diffuse centrilobular emphysema. Additional areas of minimal scattered patchy opacities PLEURA: No mass, effusion, or pneumothorax. VASCULATURE: Normal postcontrast opacification of central pulmonary arterial tree with no filling defects FREDDY: No mass or adenopathy. MEDIASTINUM: No mass or adenopathy. CARDIAC: No enlargement, pericardial thickening, or significant calcification. AORTA: No aneurysm or dissection. CHEST WALL: No mass or axillary adenopathy. BONES: No bone lesion or fracture. LIMITED ABDOMEN: Diffuse hepatic hypoattenuation suggesting steatosis. Left hepatic lobe hypodensity with peripheral enhancement, a hemangioma is suspected OTHER: Negative. IMPRESSION: Irregular spiculated 5.7 x 6.2 cm left upper lobe mass. I suspect progression of malignancy. The differential diagnosis would include post therapy/posttreatment changes No central pulmonary thromboembolic disease Severe emphysema. Electronically authenticated by: JULES RAMIREZ Date: 2022-02-17 08:02 Normal [facility] CREATININEon 02-15-2022 Creatinine [Mass/Vol] 0.52 mg/dL Critically low 0.55-1.02 [facility] Comment on above: Performed By: #### R SPLUS #### [facility] [address] [place] [address] Dr. Geri Pradhan EGFR-AF JAPANESE >60 Normal >=60 [facility] Comment on above: Performed By: #### R SPLUS #### [facility] [address] [place] [address] Dr. Geri Pradhan EGFR-NON AF JAPANESE >60 Normal >=60 [facility] Comment on above: Performed By: #### R SPLUS #### [facility] [address] [place] [address] Dr. Geri Pradhan CULTURE SPUTUMon 02-11-2022 CULTURE SPUTUM Isolate 1 Milagros albicans Light growth of Normal [facility] Comment on above: Performed By: #### S PUTCX #### [facility] [address] [place] [address] Dr. Geri Pradhan SPUTUM GRAM STAINon 02-12-20 22 COMMENTS Normal [facility] Comment on above: Performed By: #### R SPLUS #### [facility] [address] [place] [address] Dr. Geri Pradhan DIPHTHEROIDS Normal [facility] Comment on above: Performed By: #### R SPLUS #### [facility] [address] [place] [address] Dr. Geri Pradhan EPITHELIALS <25 Normal [facility] Comment on above: Performed By: #### R SPLUS #### [facility] [address] [place] [address] Dr. Geri Pradhan FUNGAL ELEMENTS Normal [facility] Comment on above: Performed By: #### R SPLUS #### [facility] [address] [place] [address] Dr. Geri Pradhan GRAM NEG BACILLI Normal [facility] Comment on above: Performed By: #### R SPLUS #### [facility] [address] [place] [address] Dr. Geri Pradhan GRAM NEG DIPPLOCOCCI Normal [facility] Comment on above: Performed By: #### R SPLUS #### [facility] [address] [place] [address] Dr. Geri Pradhan GRAM POS BACILLI Normal [facility] Comment on above: Performed By: #### R SPLUS #### [facility] [address] [place] [address] Dr. Geri Pradhan GRAM POSITIVE COCCI MODERATE Normal [facility] Comment on above: Performed By: #### R SPLUS #### [facility] [address] [place] [address] Dr. Geri Pradhan WBC (Bld) [#/Vol] 10*3/uL Normal [facility] Comment on above: Performed By: #### R SPLUS #### [facility] [address] [place] [address] Dr. Geri Pradhan Covid-19 PCR (CVDTBH)on 11-13 SARS-CoV-2 (COVID-19) RNA KRUNAL+probe Ql (Unsp spec) Detected Critically abnormal NOT DETECTED [facility] Comment on above: Result Comment: This test is not yet approved or cleared by the [place] FDA. When there are no FDA-approved or cleared tests available, and other criteria are met, FDA can make tests available under an emergency access mechanism called an Emergency Use Authorization (EUA). The EUA for this test is supported by the [place] of Health and Human Service's (HHS's) declaration that circumstances exist to justify the emergency use of in vitro diagnostics for the detection and/or diagnosis of the virus that causes COVID-19. This EUA will remain in effect (meaning this test can be used) for the duration of the COVID-19 declaration justifying emergency of IVDs, unless it is terminated or revoked by FDA (after which the test may no longer be used). Performed By: #### C VDTBH #### [facility] [address] [address] [address] Geri Pardhan General Surgery Office/Clini c Noteon 03-25-2021 General Surgery Office/Clinic Note Chief Complaint in-office excisional biopsy HPI Staff Presents for in-office excisional biopsy right zoroastrianism and right lower extremity. No change since last evaluation. History of Present Illness here for excision of right zoroastrianism and RLE lesions; no change since recent evaluation. Review of Systems ROS - Provider Constitutional: no fever, no sweats, no weight loss. Eyes: no glasses, no blurred vision, no visual loss. ENMT: no dentures, no hoarseness, no swallowing difficulties, no hearing loss, no ear infection(s), no nose bleeds. Cardiovascular: normal blood pressure, no chest pain, regular heartbeat, no heart murmur. Respiratory: yes shortness of breath, yes cough, no asthma, yes wheezing. Gastrointestinal: no nausea, no vomiting, no diarrhea, no constipation, no blood in stool, no change in bowel habits, no abdominal pain, no hepatitis. Genitourinary: no kidney stones, no urine infection, no dysuria. Musculoskeletal: no pain, no weakness. Skin: yes changing moles, no rash, no skin lumps. Neurologic: no seizures, no epilepsy, no headache. Psychiatric: no emotional or psychiatric problem. Heme/Lymph: no bleeding problems, no anemia, no blood clots, no transfusions. Allergy/Immunologic: no swollen lymph nodes/glands, no IV drug abuse. Other: Additional ROS info: Except as noted in the above Review of Systems and in the History of Present Illness, all other systems have been reviewed and are negative or noncontributory. Physical Exam Vitals & Measurements T: 37.0 ?C(Temporal Artery) skin: lesions unchanged from recent evaluation. Procedure patient brought to procedure room, placed in supine position; areas prepped and draped; anesthetized with 1% lidocaine; right zoroastrianism lesion excised in an elliptical fashion down to subcutaneous fat, length 6mm; closed with interrupted 5-0 nylon sutures; RLE lesion excised and closed in an identical manner, length 8 mm; tolerated well, ebl < 3 ml; sterile dressings applied. Assessment/Plan 1. Neoplasm of uncertain behavior of skin of face, (D48.5: Neoplasm of uncertain behavior of skin) excised under local anesthesia, tolerated well; follow up in 7-10 days for suture removal, call sooner if problems/questions. Neoplasm of uncertain behavior of skin of lower leg see # 1 Follow-up No qualifying data available Problem List/Past Medical History Ongoing Anxiety Basal cell carcinoma of face BMI 20.0-20.9, adult Chronic obstructive pulmonary disease Neoplasm of uncertain behavior of skin of face Neoplasm of uncertain behavior of skin of lower leg Nevus Non-small cell lung cancer Seborrheic keratosis Sleep apnea Smoker Historical Carcinoma of lung Procedure/Surgical History Bronchoscopy (03/31/2018), Appendectomy, Biopsy of lung, section. Medications albuterol 0.083% Inh Irma 3 mL, NEB, q6hr Bevespi Aerosphere 9 mcg-4.8 mcg/inh inhalation aerosol, 2 puff(s), Inhalation, BID budesonide 1 mg/2 mL inhalation suspension, 1 mg= 2 mL, NEB, Daily cetirizine 10 mg Tab, Oral, Daily montelukast 10 mg Tab, Oral, Daily Mi-24, 100 mg, Oral, Daily Ventolin HFA 90 mcg/inh Aerosol, Inhalation, q6hr Allergies Keflex (Unknown) Levaquin (Unknown) Social History Alcohol - Denies Alcohol Use, 01/11/2021 Substance Abuse - Denies Substance Abuse, 01/11/2021 Tobacco Former smoker, quit more than 30 days ago Tobacco Use:. Never Smokeless Tobacco Use:. Cigarettes, 2 per day. Started age 16.0 Years. Stopped age 50 Years., 02/01/2021 Family History Acute myocardial infarction: Brother. Cardiac arrest: Mother, Father and Sister. Normal [facility] Comment on above: Result Comment: Elec tronically Signed By: JIM DAVENPORT, Jose Marx\gerson\Date and Time Signed: 03/25/21 17:02 EST Ambulatory Clinical Summaryo n 02-12-2021 Ambulatory Clinical Summary {[id number] Normal [facility] General Surgery Office/Clini c Noteon 02-12-2021 General Surgery Office/Clinic Note Chief Complaint follow up in-office excisional biopsy HPI Staff 11 day post operative follow up post in-office excisional biopsy right zoroastrianism and right lower extremity. Sutures intact. Denies bleeding or drainage from incision site. History of Present Illness 11 days s/p excisional biopsy changing lesions right zoroastrianism and right lower extremity; doing well, no drainage; zoroastrianism lesion basal cell carcinoma, margins not commented on; leg lesion seborrheic keratosis. Review of Systems ROS - Provider Constitutional: no fever, no sweats, no weight loss. Eyes: no glasses, no blurred vision, no visual loss. ENMT: no dentures, no hoarseness, no swallowing difficulties, no hearing loss, no ear infection(s), no nose bleeds. Cardiovascular: normal blood pressure, no chest pain, regular heartbeat, no heart murmur. Respiratory: yes shortness of breath, yes cough, no asthma, yes wheezing. Gastrointestinal: no nausea, no vomiting, no diarrhea, no constipation, no blood in stool, no change in bowel habits, no abdominal pain, no hepatitis. Genitourinary: no kidney stones, no urine infection, no dysuria. Musculoskeletal: no pain, no weakness. Skin: no changing moles, no rash, no skin lumps. Neurologic: no seizures, no epilepsy, no headache. Psychiatric: no emotional or psychiatric problem. Heme/Lymph: no bleeding problems, no anemia, no blood clots, no transfusions. Allergy/Immunologic: no swollen lymph nodes/glands, no IV drug abuse. Other: Additional ROS info: Except as noted in the above Review of Systems and in the History of Present Illness, all other systems have been reviewed and are negative or noncontributory. Physical Exam Vitals & Measurements T: 36.3 ?C (Temporal Artery) skin: incisions healing well, no erythema or drainage, no ecchymoses. Assessment/Plan 1. Basal cell carcinoma of skin of other parts of face (C44.319: Basal cell carcinoma of skin of other parts of face) doing well, sutures removed, monitor for recurrent nodules, lesions or new sites; call with problems/questions. 2. Seborrheic keratosis (L82.1: Other seborrheic keratosis) see # 1 Follow-up No qualifying data available Problem List/Past Medical History Ongoing Anxiety Basal cell carcinoma of face BMI 20.0-20.9, adult Chronic obstructive pulmonary disease Neoplasm of uncertain behavior of skin of face Neoplasm of uncertain behavior of skin of lower leg Nevus Non-small cell lung cancer Seborrheic keratosis Sleep apnea Smoker Historical Carcinoma of lung Procedure/Surgical History Bronchoscopy (03/31/2018), Appendectomy, Biopsy of lung, section. Medications albuterol 0.083% Inh Irma 3 mL, NEB, q6hr Bevespi Aerosphere 9 mcg-4.8 mcg/inh inhalation aerosol, 2 puff(s), Inhalation, BID budesonide 1 mg/2 mL inhalation suspension, 1 mg= 2 mL, NEB, Daily cetirizine 10 mg Tab, Oral, Daily montelukast 10 mg Tab, Oral, Daily Mi-24, 100 mg, Oral, Daily Ventolin HFA 90 mcg/inh Aerosol, Inhalation, q6hr Allergies Keflex (Unknown) Levaquin (Unknown) Social History Alcohol - Denies Alcohol Use, 01/11/2021 Substance Abuse - Denies Substance Abuse, 01/11/2021 Tobacco Former smoker, quit more than 30 days ago Tobacco Use:. Never Smokeless Tobacco Use:. Cigarettes, 2 per day. Started age 16.0 Years. Stopped age 50 Years., 02/01/2021 Family History Acute myocardial infarction: Brother. Cardiac arrest: Mother, Father and Sister. Normal [facility] Comment on above: Result Comment: Elec tronically Signed By: JIM DAVENPORT, Jose Domínguez\Date and Time Signed: 02/12/21 13:16 EDT Pathology Noteon 02-06-2021 Pathology Note [id number] 0CD:127 Normal [facility] Ambulatory Clinical Summaryo n 01-11-2021 Ambulatory Clinical Summary {[id number] Normal [facility] Ambulatory Clinical Summary {[id number]}CD:[id number] Normal [facility] Physician Referralon 021 Physician Referral [id number] 0CD:127 Normal [facility] NYY20ns 03-02-2018 Protein mass conc NAME : ELAINE GUERRERO D : [id number] : 1960 Gender : FemaleRace : CaucasianORD : [id number] Procedure Date : Mar 02 2018 12:58:22Edit Date : Mar 02 2018 14:15:37 Diagnosis:NORMAL SINUS RHYTHMRIGHT ATRIAL ENLARGEMENTMINIMAL VOLTAGE CRITERIA FOR LVH, MAY BE NORMAL VARIANTBORDERLINE ECGNO PREVIOUS ECGS AVAILABLEConfirmed by CORNELIA ROGERS M.D. ([id number]) on 03/02/2018 2:15:27 PM Ventricular Rate : 86 BPMAtrial Rate : 86 BPMP-R Interval : 178 msQRS Duration : 72 msQ-T Interval : 374 msQTC Calculation(Bezet) : 447 msP [place] : 88 degreesR [place] : 78 degreesT [place] : 79 degrees Test Reason : Location : 49 : [facility] Overread By : KEN Maier,JEAN-CLAUDEYEdited By : KEN Maier,JEAN-CLAUDEYReferred By : DUGLAS FERNANDEZAcquired by : CELESTE GILLESPIE [facility] Vital Signs Date Time Vital Sign Value Performing Clinician Facility 11-27-2022 10:34-0400 Body temperature 96.01 [degF] Abdi Israel MD Work Phone: [facility] 11-27-2022 10:34-0400 Body weight 45.18 kg Abdi Israel MD Work Phone: [facility] 11-27-2022 10:34-0400 Diastolic blood pressure 82 mm[Hg] Abdi Israel MD Work Phone: [facility] 11-27-2022 10:34-0400 Heart rate 110 /min Abdi Israel MD Work Phone: [facility] 11-27-2022 10:34-0400 Respiratory rate 20 /min Abdi Israel MD Work Phone: [facility] 11-27-2022 10:34-0400 SaO2% (BldA) [Mass fraction] 89 % Abdi Israel MD Work Phone: [facility] 11-27-2022 10:34-0400 Systolic blood pressure 132 mm[Hg] Abdi Israel MD Work Phone: [facility] 06-26-2022 15:00-0400 Body height 162.56 cm Jose Conde Other [facility] Other 06-26-2022 15:00-0400 Body mass index (BMI) [Ratio] 18.02 kg/m2 Jose Conde Other [facility] Other 06-26-2022 15:00-0400 Body temperature 97.2 [degF] Jose Conde Other [facility] Other 06-26-2022 15:00-0400 Body weight 47.63 kg Jose Conde Other [facility] Other 06-26-2022 15:00-0400 Diastolic blood pressure 80 mm[Hg] Jose Conde Other [facility] Other 06-26-2022 15:00-0400 Systolic blood pressure 128 mm[Hg] Jose Conde Other [facility] Other 06-02-2022 14:09-0500 Body temperature 97.7 [degF] Abdi Israel MD Work Phone: [facility] 06-02-2022 14:09-0500 Body weight 49.35 kg Abdi Israel MD Work Phone: [facility] 06-02-2022 14:09-0500 Diastolic blood pressure 78 mm[Hg] Abdi Israel MD Work Phone: [facility] 06-02-2022 14:09-0500 Heart rate 116 /min Abdi Israel MD Work Phone: [facility] 06-02-2022 14:09-0500 Respiratory rate 18 /min Abdi Israel MD Work Phone: [facility] 06-02-2022 14:09-0500 SaO2% (BldA) [Mass fraction] 89 % Abdi Israel MD Work Phone: [facility] 06-02-2022 14:09-0500 Systolic blood pressure 125 mm[Hg] Abdi Israel MD Work Phone: [facility] 05-22-2022 15:15-0500 Body height 162.56 cm Jose Elton Other [facility] Other 05-22-2022 15:15-0500 Body mass index (BMI) [Ratio] 18.02 kg/m2 Jose Elton Other [facility] Other 05-22-2022 15:15-0500 Body temperature 98.2 [degF] Jose Conde Other [facility] Other 05-22-2022 15:15-0500 Body weight 47.63 kg Jose Conde Other [facility] Other 05-22-2022 15:15-0500 Diastolic blood pressure 78 mm[Hg] Jose Conde Other [facility] Other 05-22-2022 15:15-0500 Systolic blood pressure 130 mm[Hg] Jose Conde Other [facility] Other 05-09-2022 10:30-0500 Diastolic blood pressure 80 mm[Hg] Yasmin Sorensen MD Work Phone: [facility] 05-09-2022 10:30-0500 Heart rate 99 /min Yasmin Sorensen MD Work Phone: [facility] 05-09-2022 10:30-0500 Respiratory rate 16 /min Yasmin Sorensen MD Work Phone: [facility] 05-09-2022 10:30-0500 SaO2% (BldA) [Mass fraction] 97 % Yasmin Sorensen MD Work Phone: [facility] 05-09-2022 10:30-0500 Systolic blood pressure 134 mm[Hg] Yasmin Sorensen MD Work Phone: [facility] 05-09-2022 10:02-0500 Body temperature 98.2 [degF] Yasmin Sorensen MD Work Phone: [facility] 05-09-2022 07:03-0500 Body height 162.6 cm Yasmin Sorensen MD Work Phone: [facility] 05-09-2022 07:03-0500 Body weight 47.63 kg Yasmin Sorensen MD Work Phone: [facility] 03-14-2022 11:22-0500 Body temperature 97.81 [degF] Abdi Israel MD Work Phone: [facility] 03-14-2022 11:22-0500 Body weight 49.9 kg Abdi Israel MD Work Phone: [facility] 03-14-2022 11:22-0500 Heart rate 101 /min Abdi Israel MD Work Phone: [facility] 03-14-2022 11:22-0500 Respiratory rate 16 /min Abdi Israel MD Work Phone: [facility] 03-14-2022 11:22-0500 SaO2% (BldA) [Mass fraction] 96 % Abdi Israel MD Work Phone: [facility] 06-06-2021 10:01-0500 Body temperature 97.7 [degF] Abdi Israel MD Work Phone: [facility] 06-06-2021 10:01-0500 Body weight 51.71 kg Abdi Israel MD Work Phone: [facility] 06-06-2021 10:01-0500 Diastolic blood pressure 67 mm[Hg] Abdi Israel MD Work Phone: [facility] 06-06-2021 10:01-0500 Heart rate 97 /min Abdi Israel MD Work Phone: [facility] 06-06-2021 10:01-0500 Respiratory rate 20 /min Abdi Israel MD Work Phone: [facility] 06-06-2021 10:01-0500 SaO2% (BldA) [Mass fraction] 93 % Abdi Israel MD Work Phone: [facility] 06-06-2021 10:01-0500 Systolic blood pressure 120 mm[Hg] Abdi Israel MD Work Phone: [facility] Encounters Encounter Date Encounter Type Care Provider Facility Start: 11-27-2022 End: 11-28-2022 ambulatory ABDI ISRAEL Facility:[facility] Start: 11-27-2022 End: 11-28-2022 Patient encounter procedure Abdi Israel MD Work Phone: Radiation Oncology Comment on above: Neoplasm of lung (Pr imary Dx) Start: 11-18-2022 Telephone encounter Ced Rojas Hematology/Oncology Comment on above: Appointment Start: 09-02-2022 End: 09-05-2022 Evaluation and management of inpatient DR ADITHYA KENYON . Facility: Start: 06-26-2022 End: 06-26-2022 ambulatory Jose Conde Other [facility] Other Start: 06-26-2022 Office outpatient vi sit 25 minutes Jose Conde [facility] Start: 06-10-2022 End: 06-10-2022 ambulatory Jose Conde Other [facility] Other Start: 06-10-2022 Telephone encounter Jose Conde [facility] Start: 06-02-2022 End: 06-02-2022 ambulatory ADITHYA KENYON Facility:[facility] Start: 06-02-2022 End: 06-02-2022 Patient encounter procedure Abdi Israel MD Work Phone: Radiation Oncology Comment on above: Non-small cell cance r of left lung (HCC) (Primary Dx) Start: 05-23-2022 End: 05-23-[address] JOSE CONDE Facility:[facility] Start: 05-22-2022 End: 05-23-[address] JOSE CONDE [facility] Other Start: 05-22-2022 Office outpatient ne w 45 minutes Jose Conde [facility] Infectious Disease Start: 05-14-2022 Telephone encounter Abdi Israel MD Work Phone: Radiation Oncology Comment on above: Appointment Start: 05-09-2022 ambulatory ADITHYA KENYON Facility: [facility] Start: 05-09-2022 End: 05-09-2022 Subsequent hospital visit by physician Yasmin Sorensen MD Work Phone: Admitting Comment on above: Bronchiolar disease [J98.09] Start: 05-08-2022 Encounter for preprocedural laboratory examination DR DOCTOR DAS [facility] Start: 05-06-2022 End: 05-06-[address] DOCTOR DAS Facility:[facility] Start: 05-06-2022 End: 05-06-2022 Encounter for preprocedural laboratory examination DR DOCTOR DAS Facility:[facility] Start: 05-06-2022 End: 05-06-2022 ambulatory VITOR FARIAS Facility:[facility] Start: 04-28-2022 End: 04-28-2022 ambulatory Vitor Farias MD Work Phone: Pulmonology Comment on above: Non-small cell cance r of left lung (HCC) (Primary Dx); Lung mass; Centrilobular emphysema (HCC) Start: 04-28-2022 End: 04-28-2022 Telemedicine consultation with patient Vitor Farias MD Work Phone: [facility] Start: 04-24-2022 Telephone encounter Florina Estrada [place] Pulmonary Medicine Comment on above: Appointment (PreOp Heath carranza) Start: 04-24-2022 End: 04-24-2022 ambulatory VITOR FARIAS Facility:[facility] Start: 04-23-2022 Orders Only Alicja Reece APRN.COMBINING MACHINE OPERATOR Work Phone: Admitting Comment on above: Preoperative examina tion (Primary Dx) Appointment Start: 04-23-2022 Preprocedural examin ation done Alicja Reece APRN.COMBINING MACHINE OPERATOR Work Phone: Admitting Start: 04-22-2022 ambulatory Vitor cagle MD Work Phone: Pulmonary Medicine Start: 04-22-2022 Telephone encounter Abdi Israel MD Work Phone: Radiation Oncology Comment on above: Patient Update; Appo intment Start: 04-08-2022 End: 04-08-[address] ADITHYA KENYON . Facility: Start: 03-14-2022 End: 03-14-2022 ambulatory ABDI ISRAEL Facility:[facility] Start: 03-14-2022 End: 03-14-2022 Patient encounter procedure Abdi Israel MD Work Phone: Radiation Oncology Comment on above: Non-small cell cance r of left lung (HCC) (Primary Dx) Start: 03-07-2022 End: 03-07-2022 ambulatory ABDI ISRAEL Facility:[facility] Start: 02-20-2022 Telephone encounter Abdi Israel MD Work Phone: Radiation Oncology Comment on above: Orders Start: 02-15-2022 End: 02-16-[address] ADITHYA KENYON . Facility:[facility] Start: 02-11-2022 End: 02-11-[address] ADITHYA KENYON . Facility:[facility] Start: 12-11-2021 End: 12-11-[address] ADITHYA KENYON . Facility:[facility] Start: 10-17-[address] ADITHYA KENYON . Facili ty:[facility] Start: 06-06-2021 End: 06-06-2021 Patient encounter procedure Abdi Israel MD Work Phone: Radiation Oncology Comment on above: Non-small cell cance r of left lung (HCC) (Primary Dx); Neoplasm of lung Start: 03-02-2018 Patient encounter procedure [facility] Start: 03-24-2017 Ambulatory JAYE HOUGH Facil [id number] Start: 03-24-2017 Ambulatory Adithya Kenyon Fac ility:[id number] Procedures Date Procedure Procedure Detail Performing Clinician Start: 05-09-2022 [facility] incl fluor g dnce dx w/cell washg spx Abdi Israel MD Work Phone: Start: 06-06-2021 Adult depression screening assessment Abdi Israel MD Work Phone: Plan of Treatment Date Care Activity Detail Author Start: 04-24-2025 DIABETES SCREEN DIABETES SCREEN [facility] Start: 05-13-2023 End: 07-13-2023 CREATININE BLD CREATININE BLD Lab Routine Neoplasm of lung Expected: 05/13/2023 (Approximate), Expires: 07/13/2023 [facility] Work Phone: Comment on above: Expected: 05/13/2023 (Approximate), Expires: 07/13/2023 Start: 05-13-2023 End: 12-27-2023 CT CHEST W IVCON CT CHEST W IVCON Radiology Routine Neoplasm of lung Expected: 05/13/2023 (Approximate), Expires: 12/27/2023 [facility] Work Phone: Comment on above: Expected: 05/13/2023 (Approximate), Expires: 12/27/2023 Start: 12-12-2022 Influenza vaccination INFLUENZA (#1) [facility] Start: 06-06-2022 Adult depression screening assessment DEPRESSION SCREENING [facility] Start: 06-06-2022 End: 06-06-2022 CREATININE BLD CREATININE BLD Lab Routine Non-small cell cancer of left lung (HCC) Expected: 06/06/2022, Expires: 06/06/2022 [facility] Work Phone: Comment on above: Expected: 06/06/2022 , Expires: 06/06/2022 Start: 06-06-2022 End: 07-06-2022 Ct thorax w/contrast material CT CHEST W IVCON Radiology Routine Non-small cell cancer of left lung (HCC) Neoplasm of lung Expected: 06/06/2022, Expires: 07/06/2022 [facility] Work Phone: Comment on above: Expected: 06/06/2022 , Expires: 07/06/2022 Start: 04-24-2022 End: 06-24-2022 SARS-CoV-2 (COVID-19) RNA [Presence] in Respiratory specimen by KRUNAL with probe detection INTERMEDIATE RAPID COVID Microbiology Routine Preoperative examination Expected: 04/24/2022, Expires: 06/24/2022 [facility] Work Phone: Comment on above: Expected: 04/24/2022 , Expires: 06/24/2022 Start: 04-22-2022 End: 06-22-2022 Basic metabolic 2000 panel - Serum or Plasma BASIC METABOLIC PNL Lab STAT Lung mass Expected: 04/22/2022, Expires: 06/22/2022 [facility] Work Phone: Comment on above: Expected: 04/22/2022 , Expires: 06/22/2022 Start: 04-22-2022 End: 06-22-2022 CBC W Auto Differential panel - Blood CBC + DIFF Lab STAT Lung mass Expected: 04/22/2022, Expires: 06/22/2022 [facility] Work Phone: Comment on above: Expected: 04/22/2022 , Expires: 06/22/2022 Start: 04-13-2022 [facility] Start: 12-12-2021 Influenza vaccination INFLUENZA (#1) [facility] Start: 04-13-2021 DEPRESSION ASSESSMENT [facility] Start: 03-02-2021 DIABETES SCREEN DIABETES SCREEN [facility] Start: 08-26-2011 SHINGRIX VACCINE (1 of 2) SHINGRIX VACCINE (1 of 2) [facility] Start: 2006 COLOGUARD (FIT-DNA) COLOGUARD (FIT-D NA) [facility] Start: 2006 Colonoscopy COLONOSCOPY [facility] Start: 2006 COLORECTAL CANCER SCREENING COLORECTAL CANCER SCREENING [facility] Start: [address] COLONOGRAPHY [facility] Start: 2006 FECAL OCCULT BLOOD FECAL OCCULT BLOO D [facility] Start: 2006 LIPID SCREEN LIPID SCREEN [facility] Start: 2006 SIGMOIDOSCOPY SIGMOIDOSCOPY [facility] Start: 2001 Mammography MAMMOGRAM [facility] Start: 08-26-1991 HPV TESTING HPV TESTING [facility] Start: 08-26-1991 Zoledronic acid therapy ALPHA- 1 ANTITRYPSIN DEFICIENCY SCREENING [facility] Start: 1982 PAP TESTING PAP TESTING [facility] Start: 1980 Urine microalbumin profile DTAP,TDAP,TD (1 - Tdap) [facility] Start: 08-26-1979 ANNUAL PCP TEAM [employer] PREETHI DISEASE VISIT ANNUAL PCP TEAM CHRONIC DISEASE VISIT [facility] Start: 08-26-1979 HEPATITIS C SCREENING HEPATITIS C SC REENING [facility] Start: 08-26-1979 HIV SCREENING HIV SCREENING [facility] Start: 08-26-1979 SPIROMETRY SPIROMETRY [facility] Start: 08-26-1967 PNEUMOCOCCAL (1 - PCV) PNEUMOCOCCAL (1 - PCV) [facility] Start: 1966 COVID-19 VACCINE (1) COVID-19 VACCIN E (1) [facility] Start: 02-25-1962 COVID-19 VACCINE (#1) COVID-19 VACCI NE (#1) [facility] End: 05-22-2023 Ct thorax w/o contrast material CT CHEST WO IVCON Radiology Routine Lung mass 1 Occurrences starting 04/22/2022 until 05/22/2023 [facility] Work Phone: Comment on above: 1 Occurrences starti ng 04/22/2022 until 05/22/2023 CYTOLOGY NON-BUSHING PRESS OPERATOR [facility] Work Phone: Comment on above: Release Upon Orderin g for 1 Occurrences starting 05/09/2022, 1 completed End: 04-22-2023 ECG COMPLETE ECG COMPLETE ECG STAT Lung mass 1 Occurrences starting 04/22/2022 until 04/22/2023 [facility] Work Phone: Comment on above: 1 Occurrences starti ng 04/22/2022 until 04/22/2023 End: 03-22-[address] attenuation skull base mid-thigh NM PET/CT SKULL-THIGH INITIAL Radiology Routine Neoplasm of lung 1 Occurrences starting 02/21/2022 until 03/22/2023 [facility] Work Phone: Comment on above: 1 Occurrences starti ng 02/21/2022 until 03/22/2023 SARS-CoV-2 (COVID-19 ) RNA [Presence] in Respiratory specimen by KRUNAL with probe detection SELF CHECK COVID Microbiology Routine Lung mass Ordered: 04/22/2022 [facility] Work Phone: Comment on above: Ordered: 04/22/2022 SURGICAL PATHOLOGY [facility] Work Phone: Comment on above: Release Upon Orderin g for 1 Occurrences starting 05/09/2022, 1 completed [facility] Immunizations Immunization Date Immunization Notes Care Provider Fa [facility] 03-04-2022 influenza, injectabl e, quadrivalent, preservative free Vitor Farias MD Work Phone: [facility] 03-19-2021 influenza, injectabl e, quadrivalent, preservative free Vitor Farias MD Work Phone: [facility] 02-22-2021 influenza virus vacc ine, unspecified formulation Vitor Farias MD Work Phone: [facility] 03-02-2020 Influenza, injectabl e, Madin [place] Canine Kidney, preservative free, quadrivalent Vitor Farias MD Work Phone: [facility] 02-02-2019 Influenza, injectabl e, Madin [place] Canine Kidney, preservative free, quadrivalent Vitor Farias MD Work Phone: [facility] 03-02-2018 influenza, injectabl e, quadrivalent, contains preservative Abdi Israel MD Work Phone: [facility] Payers Date Payer Category Payer Medicaid [employer] [id number] 2018-Present [phone] [address] [place] [address] Medicaid [id number] 2018 Medicaid [id number] 1961 Unknown [id number] 1961 Unknown [id number] 1961 Unknown [id number] 1961 Unknown [id number] 1961 Unknown [id number] 1961 Unknown [id number] 1961 Unknown [id number] 1961 Unknown [id number] 1961 Unknown [id number] 1959 Self-pay [id number] 1959 Unknown [id number] 1959 Unknown [id number] Social History Date Type Detail Facility Start: 03-02-2018 End: 03-14-2022 Tobacco smoking status NHIS Ex-smoker [facility] End: 04-13-2012 History of tobacco use Current smoker [facility] Start: 03-02-2018 End: 11-27-2022 Cigarettes smoked current (pack per day) - Reported 1.5 [facility] Start: 03-02-2018 End: 03-14-2022 Tobacco use and exposure Smokeless tobacco non-user [facility] Start: 06-06-2021 End: 03-14-2022 Alcohol intake Current drinker of alcohol (finding) [facility] Start: 1960 Sex Assigned At Not on file [facility] Start: 05-07-2021 End: 03-14-2022 Exposure to SARS-CoV-2 (event) Not sure [facility] End: 04-13-2012 History of tobacco use Cigarette Smoker [facility] Work Phone: Start: 03-14-2022 End: 11-27-2022 Sex Assigned At [facility] Adult Depression Screening Assessment 0 [facility] Clinical Notes 05-14-2011 to 11-27-2022 Abdi Israel MD - 11/27/2022 10:30 AM EDTTelephone Encounter - Julisa Pressley LPN - 11/18/2022 3:29 PM EDTTelephone Encounter - Ced Victoria RN - 11/18/2022 2:47 PM EDT Note Date & Type Note Facility 11-27-2022 Note HNO ID: [id number] Author: Abdi Israel MD Service: ? Author Type: Physician Type: Progress Notes Filed: 12/09/2022 9:33 PM Note Text: Radiation Oncology - Follow Up Note PATIENT NAME: PHOEBE Guerrero PATIENT DIAGNOSIS/PATIENT IDENTIFICATION: Ms. Guerrero is a 62-year-old woman with severe COPD, who is diagnosed with Stage IA3, [id number], non-small cell lung cancer arising from a nodule in the left upper lobe of the lung adjacent to the aortic arch. Given her severe COPD/emphysema requiring supplemental oxygen and her other medical comorbidities, she was not felt to be a surgical candidate and opted for definitive non-operative management of her early stage lung cancer with stereotactic body radiation therapy (SBRT) which she completed on 05/14/2018 (5000 cGy in 5 fractions). INTERVAL HISTORY/ROS: Ms. Guerrero returns to clinic today for routine follow-up approximately four and a half years after the completion of her radiation treatments and six months since her last visit on 06/02/2022. In the interim, he had multiple hospitalizations for COPD exacerbation with CT imaging on 09/24/2022 from her most recent admission showing improvement in the area of consolidation previously concerning for fungal infection and no evidence of disease progression in the treated left upper lobe lung nodule. Radiation changes were noted with no concerning lymphadenopathy. Today she notes she is recovering from her most recent COPD exacerbation hospitalization from September and feels that her breathing is now close to baseline. She has been following up with pulmonary therapy at [facility] and with her cross tie maker Dr. Driver and using her nebulizers. She remains on supplemental oxygen at 2 L/min via nasal cannula and is not requiring the use of the rescue inhaler at this time. She denies any hemoptysis or chest pain or difficulty swallowing. She endorses stable energy with fair appetite and some decreased weight and good hydration. She otherwise denies any recent fevers, chills, headaches, difficulty with speech/swallowing, chest pain/palpitations, abdominal pain, nausea, vomiting, change in bowel/urinary habits, difficulty with gait/balance, recent falls, etc. The remainder of the review of systems was performed and was otherwise noncontributory. ALLERGIES ALLERGIES Allergen Reactions Levoquin [Levofloxa* Unknown Tendonitis but can take avalox MEDICATIONS: Current Outpatient Medications: budesonide (PULMICORT) 1 mg/2 mL nebulizer solution STIOLTO RESPIMAT 2.5-2.5 mcg/actuation mist montelukast (SINGULAIR) 10 mg tablet ipratropium/albuterol sulfate (DUONEB INHALATION) senna-docusate (SENOKOT-S) 8.6-50 mg per tablet albuterol (PROVENTIL) 2.5 mg/0.5 mL nebulizar solution PEDIATRIC ASTHMA Cetirizine 10 mg cap MI-24 200 mg 24 hr capsule PHYSICAL EXAM: GENERAL: middle-aged woman sitting in chair in no acute distress. VITALS: BP 132/82 Pulse 110 Temp 96 Resp 20 Wt 99 lb 9.6 oz (45.2kg) SpO2 89% KPS: 70 HEENT: NC/AT, anicteric sclera HEART: S1S2 LUNGS: non-labored breathing ABDOMEN: soft MUSCULOSKELETAL: no peripheral edema, moves all extremities. NEURO: no focal deficit; AANDO X3. RADIOLOGIC DATA: CT Chest (09/24/2022) ASSESSMENT AND PLAN: Ms. Guerrero is a 62-year-old woman with severe COPD, who is diagnosed with Stage IA3, [id number], non-small cell lung cancer arising from a nodule in the left upper lobe of the lung adjacent to the aortic arch. Given her severe COPD/emphysema requiring supplemental oxygen and her other medical comorbidities, she was not felt to be a surgical candidate and opted for definitive non-operative management of her early stage lung cancer with stereotactic body radiation therapy (SBRT) which she completed on 05/14/2018 (5000 cGy in 5 fractions). Ms. Guerrero is doing well clinically from a radiation and lung cancer standpoint approximately 4-1/2 years out from the completion of her SBRT treatments to the left chest. She however has had multiple COPD exacerbations and hospital admissions since her last visit [address] imaging from 09/24/2022 during her last admission shows no concern for disease progression locally or elsewhere in the chest. She will follow with her cross tie maker Dr. Driver to optimize her respiratory function and I will plan to see her back in approximately [address] of the chest. The patient is aware to contact the clinic in the interim should any questions or concerns arise. Thank you for allowing us to participate in the care of this patient. Signed by: Abdi Israel MD I spent a total of 20 minutes on the date of the service which included preparing to see the patient, [id number] patient care, and counseling and educating the patient/family/caregiver. This document has been created with the use of voice recognition technology. It may contain inaccuracies, missp (more content not included)... [facility] 11-27-2022 History of Presen t illness Narrative Images from the original note were not included. Radiation Oncology - Follow Up Note PATIENT NAME: PHOEBE Guerrero PATIENT DIAGNOSIS/PATIENT IDENTIFICATION: Ms. Guerrero is a 62-year-old woman with severe COPD, who is diagnosed with Stage IA3, [id number], non-small cell lung cancer arising from a nodule in the left upper lobe of the lung adjacent to the aortic arch. Given her severe COPD/emphysema requiring supplemental oxygen and her other medical comorbidities, she was not felt to be a surgical candidate and opted for definitive non-operative management of her early stage lung cancer with stereotactic body radiation therapy (SBRT) which she completed on 05/14/2018 (5000 cGy in 5 fractions). INTERVAL HISTORY/ROS: Ms. Guerrero returns to clinic today for routine follow-up approximately four and a half years after the completion of her radiation treatments and six months since her last visit on 06/02/2022. In the interim, he had multiple hospitalizations for COPD exacerbation with CT imaging on 09/24/2022 from her most recent admission showing improvement in the area of consolidation previously concerning for fungal infection and no evidence of disease progression in the treated left upper lobe lung nodule. Radiation changes were noted with no concerning lymphadenopathy. Today she notes she is recovering from her most recent COPD exacerbation hospitalization from September and feels that her breathing is now close to baseline. She has been following up with pulmonary therapy at [facility] and with her cross tie maker Dr. Driver and using her nebulizers. She remains on supplemental oxygen at 2 L/min via nasal cannula and is not requiring the use of the rescue inhaler at this time. She denies any hemoptysis or chest pain or difficulty swallowing. She endorses stable energy with fair appetite and some decreased weight and good hydration. She otherwise denies any recent fevers, chills, headaches, difficulty with speech/swallowing, chest pain/palpitations, abdominal pain, nausea, vomiting, change in bowel/urinary habits, difficulty with gait/balance, recent falls, etc. The remainder of the review of systems was performed and was otherwise noncontributory. ALLERGIES ALLERGIES Allergen Reactions Levoquin [Levofloxa* Unknown Tendonitis but can take avalox MEDICATIONS: Current Outpatient Medications: budesonide (PULMICORT) 1 mg/2 mL nebulizer solution STIOLTO RESPIMAT 2.5-2.5 mcg/actuation mist montelukast (SINGULAIR) 10 mg tablet ipratropium/albuterol sulfate (DUONEB INHALATION) senna-docusate (SENOKOT-S) 8.6-50 mg per tablet albuterol (PROVENTIL) 2.5 mg/0.5 mL nebulizar solution PEDIATRIC ASTHMA Cetirizine 10 mg cap MI-24 200 mg 24 hr capsule PHYSICAL EXAM: GENERAL: middle-aged woman sitting in chair in no acute distress. VITALS: BP 132/82 Pulse 110 Temp 96 Resp 20 Wt 99 lb 9.6 oz (45.2kg) SpO2 89% KPS: 70 HEENT: NC/AT, anicteric sclera HEART: S1S2 LUNGS: non-labored breathing ABDOMEN: soft MUSCULOSKELETAL: no peripheral edema, moves all extremities. NEURO: no focal deficit; A&O X3. RADIOLOGIC DATA: CT Chest (09/24/2022) ASSESSMENT AND PLAN: Ms. Guerrero is a 62-year-old woman with severe COPD, who is diagnosed with Stage IA3, [id number], non-small cell lung cancer arising from a nodule in the left upper lobe of the lung adjacent to the aortic arch. Given her severe COPD/emphysema requiring supplemental oxygen and her other medical comorbidities, she was not felt to be a surgical candidate and opted for definitive non-operative management of her early stage lung cancer with stereotactic body radiation therapy (SBRT) which she completed on 05/14/2018 (5000 cGy in 5 fractions). Ms. Guerrero is doing well clinically from a radiation and lung cancer standpoint approximately 4-1/2 years out from the completion of her SBRT treatments to the left chest. She however has had multiple COPD exacerbations and hospital admissions since her last visit [address] imaging from 09/24/2022 during her last admission shows no concern for disease progression locally or elsewhere in the chest. She will follow with her cross tie maker Dr. Driver to optimize her respiratory function and I will plan to see her back in approximately [address] of the chest. The patient is aware to contact the clinic in the interim should any questions or concerns arise. Thank you for allowing us to participate in the care of this patient. Signed by: Abdi Israel MD I spent a total of 20 minutes on the date of the service which included preparing to see the patient, [id number] patient care, and counseling and educating the patient/family/caregiver. This document has been created with the use of voice recognition technology. It may contain inaccuracies, misspellings, inaccurate syntax or inappropriate word context that are a result of the inadequacies/shortcomings of said technology/software. documented in this encounter [facility] 11-18-2022 Miscellaneous Notes FYI--Dr. Driver's progress note is available in Care Everywhere. Dr. Kenyon's office note to be faxed over per his office. Julisa Pressley LPN Pt notified, CT canceled. Katerina working on records from Dr Kenyon and Dr Driver. Images/report being pushed from [facility]. Ced Victoria RN Yes, please cancel CT tomorrow. In addition to the images, please request any office notes from Dr. Kenyon as well as her cross tie maker. Thanks! Abdi Pt called for CT 11/19/22. She reports CT completed 09/24/22 at [facility]. CT chest verified and will send images/report. LORENZO: Would you like to cancel CT? Please advise Ced Victoria RN documented in this encounter [facility] 06-26-2022 Evaluation note Encounter Date Diagnosis Assessment Notes Jun, Abnormality present on gross pathology (ICD-10 - R89.7) Patient has chronic respiratory problems systemic symptoms of infection as well as change in her cough has not occurred. She also does not cough up significant sputum. Though the morphologic abnormality of fungal like structures was seen on her bron no cultures were sent. I wanted to comparison CT for follow-up but her insurance denied. Therefore we got some serum Aspergillus titers as well as antigens as well as sputum culture. These were all normal. For now observing off antifungal therapy. She is to call if any change in her respiratory status or symptoms occur. She does have follow-up CT scans routinely scheduled by her oncologist. Obviously we will have to wait for the next 1 to be done for comparison purposes. Jun, History of lung cancer (ICD-10 - Z85.118) [facility] Other 02-21-2023 NoteHNO ID: [id number] Author: Abdi Israel MD Service: ? Author Type: Physician Type: Progress Notes Filed: 06/15/2022 8:09 PM Note Text: Radiation Oncology - Follow Up Note PATIENT NAME: PHOEBE Guerrero PATIENT DIAGNOSIS/PATIENT IDENTIFICATION: Ms. Guerrero is a 61-year-old woman with severe COPD, who is diagnosed with Stage IA3, [id number], non-small cell lung cancer arising from a nodule in the left upper lobe of the lung adjacent to the aortic arch. Given her severe COPD/emphysema requiring supplemental oxygen and her other medical comorbidities, she was not felt to be a surgical candidate and opted for definitive non-operative management of her early stage lung cancer with stereotactic body radiation therapy (SBRT) which she completed on 05/14/2018 (5000 cGy in 5 fractions). INTERVAL HISTORY/ROS: Ms. Guerrero returns to clinic today for routine follow-up approximately four years after the completion of her radiation treatments and two months since her last visit on 03/14/2022. In the interim, he had follow-up with her imaging findings in the right chest with bronchoscopy and biopsy on 05/09/2022 with pathology negative for malignant cells but showing abundant acute inflammation inflammatory exudate with fungal hyphae consistent with Aspergillus. These results were discussed with her cross tie maker Dr. Cross and the patient was referred to Dr. Conde in infectious disease for further evaluation and treatment of her fungal infection. Patient reports she has met with Dr. Conde and is in the process of additional work-up including a repeat CT of the chest. Today she reports that her breathing is stable with no further episodes of exacerbation and continues on supplemental oxygen via nasal cannula at 2 L [id number]. She notes that her cough is improved and she denies hemoptysis, chest pain, esophagitis. She endorses stable energy appetite and hydration. She otherwise denies any recent fevers, chills, headaches, difficulty with speech/swallowing, chest pain/palpitations, abdominal pain, nausea, vomiting, change in bowel/urinary habits, difficulty with gait/balance, recent falls, etc. The remainder of the review of systems was performed and was otherwise noncontributory. ALLERGIES ALLERGIES Allergen Reactions Levoquin [Levofloxa* Unknown Tendonitis but can take avalox MEDICATIONS: Current Outpatient Medications: budesonide (PULMICORT) 1 mg/2 mL nebulizer solution STIOLTO RESPIMAT 2.5-2.5 mcg/actuation mist montelukast (SINGULAIR) 10 mg tablet ipratropium/albuterol sulfate (DUONEB INHALATION) senna-docusate (SENOKOT-S) 8.6-50 mg per tablet albuterol (PROVENTIL) 2.5 mg/0.5 mL nebulizar solution PEDIATRIC ASTHMA Cetirizine 10 mg cap MI-24 200 mg 24 hr capsule PHYSICAL EXAM: GENERAL: Middle-aged woman sitting in chair in no acute distress. VITALS: BP 125/78 Pulse 116 Temp 97.7 Resp 18 Wt 108 lb 12.8 oz (49.4kg) SpO2 89% KPS: 80 HEENT: NC/AT, anicteric sclera HEART: S1S2 LUNGS: non-labored breathing ABDOMEN: soft MUSCULOSKELETAL: no peripheral edema, moves all extremities. NEURO: no focal deficit; AANDO X3. PATHOLOGIC DATA: 05/09/2022 FINAL DIAGNOSIS A - TRANSBRONCHIAL FINE NEEDLE ASPIRATION, LEFT UPPER LOBE - LEFT UPPER LOBE NODULE: Negative for malignant cells. Abundant acute inflammation and inflammatory exudate with macrophages and rare granulomas. Fungal hyphae present, morphologically consistent with Aspergillus species (see comment). B - BRONCHIAL LEFT UPPER LOBE BRUSH - LEFT UPPER LOBE NODULE TRIPLE NEEDLE BRUSH: Negative for malignant cells. Acute and chronic inflammation and inflammatory exudate with macrophages. Fungal hyphae present, morphologically consistent with Aspergillus species (see comment). FINAL DIAGNOSIS Left lung, upper lobe, nodule, transbronchial biopsy - Fragments of lung parenchyma with extensive scarring fibroelastosis and chronic inflammation. Diagnosis Comment Deeper levels were examined. No definite neoplasm is present. ASSESSMENT AND PLAN: Ms. Guerrero is a 61-year-old woman with severe COPD, who is diagnosed with Stage IA3, [id number], non-small cell lung cancer arising from a nodule in the left upper lobe of the lung adjacent to the aortic arch. Given her severe COPD/emphysema requiring supplemental oxygen and her other medical comorbidities, she was not felt to be a surgical candidate and opted for definitive non-operative management of her early stage lung cancer with stereotactic body radiation therapy (SBRT) which she completed on 05/14/2018 (5000 cGy in 5 fractions). Ms. Guerrero is doing well clinically approximately 4 years out from completion of her SBRT treatments to the left chest with stable pulmonary function. Her recent radiologic findings on CT and PET were followed up by bronchoscopy/EBUS on 05/09/2022 with pathology being negative for malignancy but show (more content not included)...[facility] 06-02-2022 History of Present illness Narrative* Abdi Israel MD - 06/02/2022 11:53 PM EST Radiation Oncology - Follow Up Note PATIENT NAME: PHOEBE Guerrero PATIENT Signed by: Abdi Israel MD I spent a total of 20 minutes on the date of the service which included preparing to see the patient, [id number] patient care, and counseling and educating the patient/family/caregiver. This document has been created with the use of voice recognition technology. It may contain inaccuracies, misspellings, inaccurate syntax or inappropriate word context that are a result of the inadequacies/shortcomings of said technology/software. [facility]* Encounter Date Diagnosis Assessment Notes Treatment Notes Treatment Clinical Notes May, Abnormality present on gross pathology (ICD-10 - R89.7) While hemoptysis is a concerning finding of Aspergillus I have to say this one-time occurrence makes this type of infection seem less likely. Her CT scan when taken in February is very concerning for potential malignancy though I do realize the path did not show any malignant cells. Without culture or other indices to suggest Aspergillus difficult to say that this fungus though well could be present is causing any clinical disease. She has not had any worsening or progressive respiratory symptoms since this occurrence back in January. Before subjecting her to a potential toxic antifungal medication for months as that would be what is necessary to treat this infection I would like more confirmatory diagnostic prove that this fungus is truly causing her disease. Therefore she is in agreement to submitting some blood work for which we will look for some Aspergillus quantitative antibodies in addition to a galactomannan serum assay. She is also in agreement to having a CT scan to further evaluate and compare with February CT scan. A sputum culture will also be ordered. Once this is all returned we will determine whether or not voriconazole will be implemented. May, History of lung cancer (ICD-10 - Z85.118) [facility] 02-01-2023 Miscellaneous Notes* Telephone Encounter - Abdi Israel MD - 05/14/2022 10:40 PM EST Thanks! Abdi * Telephone Encounter - Kendal Lomax [facility] - 05/14/2022 1:59 PM EST Records faxed to Dr. Conde. Requested images be pushed to [facility]. * Telephone Encounter - Alex Nash - 05/14/2022 1:26 PM EST Patient has been scheduled with Dr. Conde on 05/22/21. Patient has been called & made aware of appointment. Emily: Please send specified documents to Dr. Conde. Fax cover sheet in your mailbox. Thanks, Alex Nash * Telephone Encounter - Abdi Israel MD - 05/14/2022 12:06 PM EST Discussed pathology results from bronch/EBUS with the patient yesterday showing fungal/aspergillus infection. Spoke with her cross tie maker, Dr. Cross, today and agreed to refer to Dr. Conde for ID consult and management of pulmonary infection. Please send last years worth of notes and CT images in addition to pathology results. Thanks! bAdi * Telephone Encounter - Julisa Pressley LPN - 05/14/2022 11:56 AM EST Jca: Will you please refer Cara to Dr. Conde for consult aleks dx: Fungal hyphae present, morphologically consistent with Aspergillus species (see comment. Dr. Israel--please sign pended consult order. I left two messages for Cara to call the office so we can notify her that we are arranging this appt. Thanks Julisa Pressley LPN [facility] NoteHNO ID: [id number] Author: Interface Note Service: ? Author Type: ? Type: Progress Notes Filed: 05/10/2022 4:17 AM Note Text: Epic Scheduled Downtime: 05/10/2022 1:00:00 AM to 05/10/2022 3:56:00 [facility]01-27-2023 History of Present illness Narrative* Interface Note - 05/09/2022 8:00 PM EST Epic Scheduled Downtime: 05/10/2022 1:00:00 AM to 05/10/2022 3:56:00 AM [facility] NoteHNO ID: [id number] Author: Anthony Sheppard APRN.SPORTS COMPLEX ATTENDANT Service: ? Author Type: Nurse Security Tech Type: Anesthesia Procedure Notes Filed: 05/09/2022 8:41 AM Note Text: ANESTHESIOLOGY PROCEDURE NOTE Airway General Information Procedure Start Time/Medication Administration: 05/09/2022 8:23 AM Patient location during procedure: OR Timeout Performed Pre-procedure: timeout performed Consent Obtained: Yes Patient identity confirmed: arm band and patient Staffing SPORTS COMPLEX ATTENDANT: Anthony Sheppard APRN.SPORTS COMPLEX ATTENDANT Performed by: ANEESH Indications and Patient Condition Indications for airway management: anesthesia Preoxygenated: yes anesthesia circuit Patient position: sniffing Method: asleep Cricoid Pressure: No Manual In-Line Stabilization: No Difficult Mask: No Final Airway Details Final airway type: endotracheal airway Final Endotracheal Airway: ETT Cuffed: yes Successful intubation technique: video laryngoscopy Devices used: [employer] Endotracheal tube insertion site: oral Blade: Keisha Blade size: #3 ETT size (mm): 8.5 Measured from: lips Measurement (cm): 21 Placement verified by: capnometry Cormack-Lehane Classification: grade I - full view of glottis Number of attempts at approach: 1 Failed airway: no Unrecognized esophageal intubation: no Airway not difficult SIGNATURE: Anthony Sheppard APRN.SPORTS COMPLEX ATTENDANT PATIENT NAME: Cara Guerrero DATE: May 09, 2022 TIME: 8:39 AM CSN: [id number] Nurse Note* Luz Maria Blanca RN - 05/09/2022 10:36 AM EST POST OP LEARNING RESPONSE INSTRUCTION PROVIDED TO: Patient and family member METHOD OF INSTRUCTION: Individual instruction Written instruction - handouts Verbal instruction PATIENT / FAMILY RESPONSE: Verbalizes understanding of: POST-PROCEDURE INSTRUCTIONS-Correct actionsto take to reduce post procedure complications FOLLOW-UP PLAN: Complete - No need for follow-up SUPPLEMENTAL MATERIAL: None REFERRAL (RECOMMENDATION): None Electronically Signed By: Luz Maria Blanca RN documented [facility] NotePatient Name: Cara Guerrero Procedure Date: 05/09/2022 7:38 AM Date of : 1960 Admit Type: Outpatient Age: 61 Gender: Female Note Status: Finalized Procedure: Bronchoscopy Indications: Left upper lobe mass Providers: Yasmin Sorensen MD (Doctor) Referring MD: Abdi Israel (Referring MD) Requesting Physician: Vitor Farias MD Medicines: Per anesthesia team records Complications: No immediate complications Estimated Blood Loss: Estimated blood loss was minimal. Procedure: Pre-Anesthesia Assessment: - A History and Physical has been performed. Patient meds and allergies have been reviewed. The risks and benefits of the procedure and the sedation options and risks were discussed with the patient. All questions were answered and informed consent was obtained. Patient identification and proposed procedure were verified prior to the procedure by the physician, the nurse, the anesthesiologist and the complaint operator in the pre-procedure area in the procedure room. Mental Status Examination: normal. Airway Examination: normal oropharyngeal airway. Respiratory Examination: clear to auscultation. CV Examination: regular rate and rhythm. ASA Grade Assessment: III - A patient with severe systemic disease. After reviewing the risks and benefits, the patient was deemed in satisfactory condition to undergo the procedure. The anesthesia plan was to use general anesthesia. Immediately prior to administration of medications, the patient was re-assessed for adequacy to receive sedatives. The heart rate, respiratory rate, oxygen saturations, blood pressure, adequacy of pulmonary ventilation, and response to care were monitored throughout the procedure. The physical status of the patient was re-assessed after the procedure. After confirmation of universal protocol, the bronchoscope was introduced. The bronchoscope was introduced through the mouth, via the endotracheal tube and advanced to the tracheobronchial tree. The Bronchoscope was introduced through the mouth, via the endotracheal tube and advanced to the tracheobronchial tree. The PROBE was introduced through the mouth, via the endotracheal tube and advanced to the tracheobronchial tree. The was introduced through the mouth, via the endotracheal tube and advanced to the tracheobronchial tree. The procedure was accomplished without difficulty. The patient tolerated the procedure well. Total fluoroscopy time was 10 minutes, 52 seconds. Findings: The ETT is in good position. The subglottic space is normal. The trachea is of normal caliber. The shaina is sharp. The tracheobronchial tree was examined to at least the first subsegmental level. Bronchial mucosa and anatomy are normal; there are no endobronchial lesions. There were some secretions seen in the trachea extending down the SARAH. There was notable malacia seen in the SARAH. Navigation bronchoscopy utilizing the [employer] Robot was performed. The CT scan was used for planning purposes. A virtual bronchoscopic image was generated using the planning software. The target in the left upper lobe was marked where there was PET avidity. A lesion 2.5 cm in size was found and a pathway was created. After a complete airway exam, the navigation phase was then begun to locate the target lesion(s). Positioning was confirmed using the Olympus radial probe ultrasound catheter. Based on radial ultrasound probe imaging, positioning of the catheter is adjacent to the lesion. Through the working channel, the following biopsies were taken:Transbronchial needle aspiration of a lesion was performed in the left upper lobe using a ArcPoint 21 gauge needle and sent for routine cytology. The procedure was guided by fluoroscopy and ultrasound. Transbronchial needle aspiration technique was selected because the sampling site was not visible endoscopically. The sampling device penetrated the full thickness of the bronchial wall to obtain the needle aspiration of lung tissue. Seven samples were obtained. Fluoroscopy guided transbronchial triple-needle brushings were obtained with a triple needle brush and sent for routine cytology. Two samples were obtained. Transbronchial brushing technique was selected because the sampling site was not visible endoscopically. The sampling device penetrated the full thickness of the bronchial wall to obtain the brushings of lung tissue. Transbronchial biopsies were performed in the lung and sent for histopathology examination. The procedure was guided by fluoroscopy. Transbronchial biopsy technique was selected because the sampling site was not visible endoscopically. The sampling device penetrated the full thickness of the bronchial wall to obtain the biopsy of lung tissue. Twelve biopsy samples were obtained. Rapid On-Site Evaluation (WESTLEY): Preliminary cytology of the lesion in the left upper lobe was suggestive of benign (more content not included)... [facility]01-24-2023 NoteHNO ID: [id number] Author: RT Fox(R) Service: ? Author Type: Technologist Type: Progress Notes Filed: 05/06/2022 8:54 AM Note Text: Radiology Service Progress Note PATIENT NAME: Cara Guerrero DATE OF SERVICE: May 06, 2022 TIME: 8:53 AM PATIENT IDENTITY VERIFICATION COMPLETED USING TWO (2) IDENTIFIERS: Name and Date of confirmed by patient verbally. FALL SCREENING: Has the patient had 2 falls in the last year or 1 fall with injury or currently using an Ambulatory Assistive Device (Walker, Cane, Wheelchair, Crutches, etc.)? No PATIENT GENDER DATA: Female. status: : No status: NO. PATIENT RELEVANT IMPLANT DATA REVIEWED: Not Applicable RADIOLOGY DEPARTMENT: CT; Exam(s) Completed: Chest PERIPHERAL IV DATA: Not applicable SIGNED BY: RT Fox(R) May 06, 2022 8:53 [facility]01-16-2023 NoteHNO ID: [id number] Author: Vitor Farias MD Service: ? Author Type: Physician Type: Progress Notes Filed: 04/28/2022 4:35 PM Note Text: VIRTUAL VISIT PROGRESS NOTE This is a virtual visit using [employer] video visit. It required patient-provider interaction for the medical decision making as documented below. Cara Guerrero is a 61 year old female who was referred by for evaluation of lung mass. Patient diagnosed with SELENE lung cancer in 2019, treated with SBRT. In February, had an URI with hemoptysis, which led to CT chest, which showed prior area of XRT had increased in size (up until then was stable). No longer with hemoptysis. COPD symptoms a bit better lately, based on phlegm. Dyspnea about the same. Patient has had weight loss over the past few months. Appetite good, eating well. COPD managed locally by a cross tie maker. HISTORY REVIEWED (electronic chart updated): PAST MEDICAL HISTORY Diagnosis Date COPD (chronic obstructive pulmonary disease) (HCC) PAST SURGICAL HISTORY Procedure Laterality Date APPENDECTOMY 1972 BRONCHOSCOPY SNGL 1983 COLONOSCOPY 2011 FAMILY HISTORY Problem Relation Age of Onset Asthma No Family History DVT No Family History Cancer No Family History Social History Tobacco Use Smoking status: Former Packs/day: 1.50 Years: 35.00 Pack years: 52.50 Types: Cigarettes Quit date: 2012 Years since quittin.0 Smokeless tobacco: Never Substance Use Topics Alcohol use: Yes Alcohol/week: 7.5 - 10.0 standard drinks Types: 3 - 4 Cans of Beer (12oz) per week Drug use: No Current Outpatient Medications Medication Sig budesonide (PULMICORT) 1 mg/2 mL nebulizer solution INHALE 1 VIAL VIA NEBULIZER TWICE A DAY STIOLTO RESPIMAT 2.5-2.5 mcg/actuation mist TAKE 2 PUFFS BY MOUTH EVERY DAY montelukast (SINGULAIR) 10 mg tablet Take 10 mg by mouth daily at bedtime. ipratropium/albuterol sulfate (DUONEB INHALATION) Inhale as instructed. senna-docusate (SENOKOT-S) 8.6-50 mg per tablet Take 2 tablets by mouth twice daily as needed. albuterol (PROVENTIL) 2.5 mg/0.5 mL nebulizar solution PEDIATRIC ASTHMA Inhale 2.5-5 mg as instructed as directed. Cetirizine 10 mg cap Take by mouth. MI-24 200 mg 24 hr capsule Take 200 mg by mouth once daily. No current facility-administered medications for this visit. ALLERGIES Allergen Reactions Levoquin [Levofloxa* Unknown Tendonitis but can take avalox REVIEW OF SYSTEMS: GENERAL: See HPI HEENT: denies LEGGETT, change in hearing or vision, no other ENT complaints NECK: denies swelling or pain in neck RESPIRATORY: See HPI CARDIOVASCULAR: no chest pain, no palpitations GI: normal appetite, tolerating PO well, BMs normal, and no abdominal pain : urination is normal MUSCULOSKELETAL: denies any painful or swollen joints, no muscle aches SKIN: no rash PSYCH: denies depressed or anxious mood, sleep is normal HEMATOLOGY/LYMPHOLOGY: negative for prolonged bleeding, no swollen lymph nodes ENDOCRINE: denies cold/heat intolerance, denies polyuria or polydipsia, no goiter NEURO: no numbness or paresthesias and no weakness of the extremities All other ROS: negative PHYSICAL EXAMINATION: VIDEO EXAM: (if completed, performed via video enabled technology) GENERAL: alert and appropriate, in no distress, well-hydrated, well nourished, and happy, smiling, interactive SKIN: no rash noted HEAD: normocephalic, no abnormality or lesion noted EYES: no injection and visual acuity is grossly normal EARS: hearing grossly normal NOSE: external nose normal without rhinorrhea OROPHARYNX: moist mucus membranes NECK: full ROM, no cervical LNs noted RESPIRATORY: breathing non-labored CHEST: equal chest rise with normal respiratory effort ABDOMEN: soft and non-tender BACK: back normal in appearance, spine with FROM NEUROLOGIC: no obvious deficit ASSESSMENT/PLAN: (C34.92) Non-small cell cancer of left lung (HCC) (primary encounter diagnosis) (R91.8) Lung mass (J43.2) Centrilobular emphysema (HCC) Lung mass. I reviewed the CT scan, compared to prior. The primary SBRT bed is indeed getting larger in size. There is PET avidity along the apicolateral pole of the region, and I suspect this represents local recurrence. DDx includes a late XRT-induced fibrosis, but the paucity of progression up until now speaks against that. Will attempt a navigational bronchoscopy to try to reach this area, with the target being the PET avid area. It will be difficult to get a biopsy in this region due to radiation induced airway disease and stricture, along with associated tissue fibrosis, but we will do our best. Emphysema. Controlled and stable; managed by local cross tie maker. I spent a total of 60 minutes on the date of the service which included preparing to see the patient, [id number] patient care, completing clinical documentation, obtaining and/or reviewing separately obta (more content not included)...[id number] History of Present illness Narrative* Vitor Farias MD - 04/28/2022 3:03 PM EST VIRTUAL VISIT PROGRESS NOTE This is a virtual visit using [employer] video visit. It required patient-provider interaction for themedical decision making as documented below. Cara Guerrero is a 61 year old female who was referred by for evaluation of lung mass. Patient diagnosed with SELENE lung cancer in 2018, treated with SBRT. In February, had an URI with hemoptysis, which led to CT chest, which showed prior area of XRT had increased in size (up until then was stable). No longer with hemoptysis. COPD symptoms a bit better lately, based on phlegm. Dyspnea about the same. Patient has had weight loss over the past few months. Appetite good, eating well. COPD managed locally by a cross tie maker. HISTORY REVIEWED (electronic chart updated): PAST MEDICAL HISTORY Diagnosis Date COPD (chronic obstructive pulmonary disease) (HCC) PAST SURGICAL HISTORY Procedure Laterality Date APPENDECTOMY 1972 BRONCHOSCOPY SNGL 1983 COLONOSCOPY 2011 FAMILY HISTORY Problem Relation Age of Onset Asthma No Family History DVT No Family History Cancer No Family History Social History Tobacco Use Smoking status: Former Packs/day: 1.50 Years: 35.00 Pack years: 52.50 Types: Cigarettes Quit date: 2012 Years since quittin.0 Smokeless tobacco: Never Substance Use Topics Alcohol use: Yes Alcohol/week: 7.5 - 10.0 standard drinks Types: 3 - 4 Cans of Beer (12oz) per week Drug use: No Current Outpatient Medications Medication Sig budesonide (PULMICORT) 1 mg/2 mL nebulizer solution INHALE 1 VIAL VIA NEBULIZER TWICE A DAY STIOLTO RESPIMAT 2.5-2.5 mcg/actuation mist TAKE 2 PUFFS BY MOUTH EVERY DAY montelukast (SINGULAIR) 10 mg tablet Take 10 mg by mouth daily at bedtime. ipratropium/albuterol sulfate (DUONEB INHALATION) Inhale as instructed. senna-docusate (SENOKOT-S) 8.6-50 mg per tablet Take 2 tablets by mouth twice daily as needed. albuterol (PROVENTIL) 2.5 mg/0.5 mL nebulizar solution PEDIATRIC ASTHMA Inhale 2.5-5 mg as instructed as directed. Cetirizine 10 mg cap Take by mouth. MI-24 200 mg 24 hr capsule Take 200 mg by mouth once daily. No current facility-administered medications for this visit. ALLERGIES Allergen Reactions Levoquin [Levofloxa* Unknown Tendonitis but can take avalox REVIEW OF SYSTEMS: GENERAL: See HPI HEENT: denies LEGGETT, change in hearing or vision, no other ENT complaints NECK: denies swelling or pain in neck RESPIRATORY: See HPI CARDIOVASCULAR: no chest pain, no palpitations GI: normal appetite, tolerating PO well, BMs normal, and no abdominal pain : urination is normal MUSCULOSKELETAL: denies any painful or swollen joints, no muscle aches SKIN: no rash PSYCH: denies depressed or anxious mood, sleep is normal HEMATOLOGY/LYMPHOLOGY: negative for prolonged bleeding, no swollen lymph nodes ENDOCRINE: denies cold/heat intolerance, denies polyuria or polydipsia, no goiter NEURO: no numbness or paresthesias and no weakness of the extremities All other ROS: negative PHYSICAL EXAMINATION: VIDEO EXAM: (if completed, performed via video enabled technology) GENERAL: alert and appropriate, in no distress, well-hydrated, well nourished, and happy, smiling, interactive SKIN: no rash noted HEAD: normocephalic, no abnormality or lesion noted EYES: no injection and visual acuity is grossly normal EARS: hearing grossly normal NOSE: external nose normal without rhinorrhea OROPHARYNX: moist mucus membranes NECK: full ROM, no cervical LNs noted RESPIRATORY: breathing non-labored CHEST: equal chest rise with normal respiratory effort ABDOMEN: soft and non-tender BACK: back normal in appearance, spine with FROM NEUROLOGIC: no obvious deficit ASSESSMENT/PLAN: (C34.92) Non-small cell cancer of left lung (HCC) (primary encounter diagnosis) (R91.8) Lung mass (J43.2) Centrilobular emphysema (HCC) Lung mass. I reviewed the CT scan, compared to prior. The primary SBRT bed is indeed getting largerin size. There is PET avidity along the apicolateral pole of the region, and I suspect this represents local recurrence. DDx includes a late XRT-induced fibrosis, but the paucity of progression up until now speaks against that. Will attempt a navigational bronchoscopy to try to reach this area, with the target being the PET avid area. It will be difficult to get a biopsy in this region due to radiation induced airway disease and stricture, along with associated tissue fibrosis, but we will do our best. Emphysema. Controlled and stable; managed by local cross tie maker. I spent a total of 60 minutes on the date of the service which included preparing to see the patient, [id number] patient care, completing clinical documentation, obtaining and/or reviewing separately obtained history, performing a medically appropriate examination, counseling and educating the pat ient/family/caregiver, ordering medications, tests, or procedures, communicating with other HCPs (not separately reported), independently interpreting results (not separately reported), communicatingresults to the patient/family/caregiver, and care coordination (not separately reported) Vitor Farias MD April 28, 2022 documented [facility] Miscellaneous Notes* Telephone Encounter - Alex Nash - 04/23/2022 9:58 AM EST Patient has been scheduled for both & confirmed appt day & time. Alex Nash * Telephone Encounter - Alex Nash - 04/23/2022 9:10 AM EST Called patient to schedule her for EKG & labs per e-mail. No answer, LMOV requesting a returnedphone call. Alex Nash documented in this [facility]South[facility]01-[facility]-2023 NoteHNO ID: [id number] Author: Vitor Farias MD Service: ? Author Type: Physician Type: Progress Notes Filed: 04/23/2022 3:51 PM Note Text: Bronchoscopy Request: Cleared for scheduling April 23, 2022 Please schedule patient for the following: Outpatient Visit: Bronch Only, visit not needed (last HANDP Date: 04/28/2022) Bronchoscopy Procedures: Navigation Bronchoscopy (Illumisite) Note to plate glass installer: See CC'd Chart routing comment Diagnosis/Reason for Bronchoscopy: Lung nodule sampling only Timing: Specified date or range: After 04/28 Time Allotment/Tier: TIER 2: 2 HOUR Physician Performing Bronchoscopy: Preferably with Dr. Farias, but can be Bronch A, B or C Needs Labs: Yes, CBC and BMP Needs EKG: Yes Needs CT prior: Yes EMN Bronchoscopy Protocol Chest CT I will try to get labs/EKG/COVID swab done at [facility] Does the pt need cardiac clearance?: No Is she on anticoagulants/anti-plt therapy?: No Nursing Considerations: (ie: mcfp, TB, respiratory isolation, clinical trial, Specific protocol etc.) none Additional notes to the wet end operator: Treated SELENE cancer, 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 Please try to access the PET avid area if possible. Consultation request/referral by: Abdi Israel MD ([facility]) Reviewed by: PHANI Farias MD April 22, 2022 3:49 PM Addendum: CBC with diff: WBC 6.81 03/02/2018 RBC 4.94 03/02/2018 Hemoglobin 14.7 03/02/2018 Hematocrit 44.5 03/02/2018 MCV 90.1 03/02/2018 MCH 29.8 03/02/2018 MCHC 33.0 03/02/2018 RDW-CV 12.4 03/02/2018 Platelet Count 234 03/02/2018 MPV 10.3 03/02/2018 Neut% 64.3 03/02/2018 Lymph% 25.3 03/02/2018 Wirt% 9.1 03/02/2018 Eosin% 0.7 03/02/2018 Baso% 0.6 03/02/2018 Abs Neut (ANC) 4.36 03/02/2018 Abs Wirt 0.62 03/02/2018 Abs Eosin 0.05 03/02/2018 Abs Baso 0.04 03/02/2018 Potassium Date Value Ref Range Status 03/02/2018 4.1 3.7 - 5.1 mmol/L Final Sodium Date Value Ref Range Status 03/02/2018 138 136 - 144 mmol/L Final BUN Date Value Ref Range Status 03/02/2018 9 7 - 21 mg/dL Final Creatinine Date Value Ref Range Status 03/02/2018 0.48 (L) 0.58 - 0.96 mg/dL [facility] of Present illness Narrative* Vitor Farias MD - 04/22/2022 3:49 PM EST Bronchoscopy Request: Please schedule patient for the following: Outpatient Visit: Bronch Only, visit not needed (last H&P Date: 04/28/2022) Bronchoscopy Procedures: Navigation Bronchoscopy (Illumisite) Diagnosis/Reason for Bronchoscopy: Lung nodule sampling only Timing: Specified date or range: After 04/28 Time Allotment/Tier: TIER 2: 2 HOUR Physician Performing Bronchoscopy: Preferably with Dr. Farias, but can be Bronch A, B or C Needs Labs: Yes, CBC and BMP Needs EKG: Yes Needs CT prior: Yes EMN Bronchoscopy Protocol Chest CT I will try to get labs/EKG/COVID swab done at [facility] Does the pt need cardiac clearance?: No Is she on anticoagulants/anti-plt therapy?: No Nursing Considerations: (ie: mcfp, TB, respiratory isolation, clinical trial, Specific protocol etc.) none Additional notes to the wet end 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 Please try to access the PET avid area if possible. Consultation request/referral by: Abdi Israel MD ([facility]) Reviewed by: PHANI Farias MD April 22, 2022 3:49 PM Addendum: CBC with diff: WBC 6.81 03/02/2018 RBC 4.94 03/02/2018 Hemoglobin 14.7 03/02/2018 Hematocrit 44.5 03/02/2018 MCV 90.1 03/02/2018 MCH 29.8 03/02/2018 MCHC 33.0 03/02/2018 RDW-CV 12.4 03/02/2018 Platelet Count 234 03/02/2018 MPV 10.3 03/02/2018 Neut% 64.3 03/02/2018 Lymph% 25.3 03/02/2018 Wirt% 9.1 03/02/2018 Eosin% 0.7 03/02/2018 Baso% 0.6 03/02/2018 Abs Neut (ANC) 4.36 03/02/2018 Abs Wirt 0.62 03/02/2018 Abs Eosin 0.05 03/02/2018 Abs Baso 0.04 03/02/2018 Potassium Date Value Ref Range Status 03/02/2018 4.1 3.7 - 5.1 mmol/L Final Sodium Date Value Ref Range Status 03/02/2018 138 136 - 144 mmol/L Final BUN Date Value Ref Range Status 03/02/2018 9 7 - 21 mg/dL Final Creatinine Date Value Ref Range Status 03/02/2018 0.48 (L) 0.58 - 0.96 mg/dL Final documented in this encounterSouth[facility]01-10-2023 Miscellaneous Notes* Telephone Encounter - Julisa Pressley LPN - 04/22/2022 9:37 AM EST I called to notifbeto Castaon that Dr. Farias's office will be calling her to schedule bronchoscopy. Shestates she recently had the flu and her breathing was terrible at that time. She said her symptoms are improving now that she is over the flu. She denies questions at this time. Julisa Pressley LPN documented in this encounterSouth[facility]12-03-2022 NoteHNO ID: [id number] Author: Abdi Israel MD Service: ? Author Type: Physician Type: Progress Notes Filed: 03/26/2022 4:59 AM Note Text: Radiation Oncology - Follow Up Note PATIENT NAME: Cara Guerrero PATIENT DIAGNOSIS/PATIENT IDENTIFICATION: Ms. Guerrero is a 61-year-old woman with severe COPD, who is diagnosed with Stage IA3, [id number], non-small cell lung cancer arising from a nodule in the left upper lobe of the lung adjacent to the aortic arch. Given her severe COPD/emphysema requiring supplemental oxygen and her other medical comorbidities, she was not felt to be a surgical candidate and opted for definitive non-operative management of her early stage lung cancer with stereotactic body radiation therapy (SBRT) which she completed on 05/14/2018 (5000 cGy in 5 fractions). INTERVAL HISTORY/ROS: Ms. Guerrero returns to clinic today for follow-up almost three years after the completion of her SBRT treatments and ten months since her last visit on 06/06/2021. CT examination of the chest at that time was stable with no substantial changes. In the interim, she had a repeat CT examination of the chest on 02/15/2022 ordered by her primary care physician Dr. Kenyon which was prompted by an episode of hemoptysis approximately 2 weeks prior. She notes this was an isolated episode and has not had repeat hemoptysis. CT imaging showed interval increase in the consolidation/mass in the left upper lobe measuring approximately 5.7 x 6.2 cm with concern for recurrent/progressing disease versus posttreatment changes. She also met with her cross tie maker Dr. Cross after her CT results were available. She notes that prior to this episode of hemoptysis, she has been having intermittent colds and difficulties with breathing since the summer which she attributed to contact with her grandchildren who were sick. She has been on a few different courses of antibiotics with temporary improvement but no hospitalization for COPD exacerbation. She continues on supplemental oxygen. In addition to her dyspnea, she also notes occasional discomfort in her chest but otherwise denies any recent fevers, chills, headaches, difficulty with speech/swallowing, abdominal pain, nausea, vomiting, change in bowel/urinary habits, difficulty with gait/balance, recent falls, etc. The remainder of the review of systems was performed and was otherwise noncontributory. ALLERGIES ALLERGIES Allergen Reactions Levoquin [Levofloxa* Unknown Tendonitis but can take avalox MEDICATIONS: Current Outpatient Medications: budesonide (PULMICORT) 1 mg/2 mL nebulizer solution STIOLTO RESPIMAT 2.5-2.5 mcg/actuation mist montelukast (SINGULAIR) 10 mg tablet ipratropium/albuterol sulfate (DUONEB INHALATION) senna-docusate (SENOKOT-S) 8.6-50 mg per tablet albuterol (PROVENTIL) 2.5 mg/0.5 mL nebulizar solution PEDIATRIC ASTHMA Cetirizine 10 mg cap MI-24 200 mg 24 hr capsule iv contrast (will be provided with radiology test) iv contrast (will be provided with radiology test) iv contrast (will be provided with radiology test) PHYSICAL EXAM: GENERAL: middle-aged woman sitting in chair in no acute distress. VITALS: Pulse 101 Temp 97.8 Resp 16 Wt 110 lb (49.9kg) SpO2 96[O2 at 2L/NC]% KPS: 80 HEENT: NC/AT, anicteric sclera HEART: S1S2 LUNGS: non-labored breathing ABDOMEN: soft MUSCULOSKELETAL: no peripheral edema, moves all extremities. NEURO: no focal deficit; AANDO X3. RADIOLOGIC DATA: PET/CT (03/07/2022) IMPRESSION: Head and Neck: * No evidence of FDG avid neoplastic process Chest: * 2.3 x 1.7 cm left upper lobe hypermetabolic nodular density suspicious for neoplastic process. Tissue sampling as clinically indicated * 1.7 x 1.1 cm left supraclavicular lymph node is suspicious for metastatic disease; readily amenable to percutaneous sampling * Left axillary and subpectoral mildly avid lymph nodes, metastatic disease not excluded. Abdomen and pelvis: * Mild nodularity of the left adrenal gland is slightly FDG avid, favored to be adenomatous, although early metastatic disease cannot be excluded correlation with adrenal protocol MRI MRI may be performed, as clinically indicated * Diffuse proximal gastric uptake likely secondary to gastritis or physiologic. Clinical correlation regarding endoscopic evaluation. Musculoskeletal: * No neoplastic hypermetabolic lesions CT Chest (02/15/2022) 2018/pre-radiation PET compared to current 02/2022 PET. ASSESSMENT AND PLAN: Ms. Guerrero is a 61-year-old woman with severe COPD, who is diagnosed with Stage IA3, [id number], non-small cell lung cancer arising from a nodule in the left upper lobe of the lung adjacent to the aortic arch. Given her severe COPD/emphysema requiring supplemental oxygen and her other medical comorbidities, she was not felt to be a surgical candidate and opted for definitive non-operative management of her early stage (more content not included)...[facility]12-[facility] History of Present illness Narrative* Abdi Israel MD - 03/14/2022 11:44 PM EST Radiation Oncology - Follow Up Note PATIENT NAME: Cara Guerrero PATIENT Signed by: Abdi Israel MD I spent a total of 20 minutes on the date of the service which included preparing to see the patient, [id number] patient care, and counseling and educating the patient/family/caregiver. This document has been created with the use of voice recognition technology. It may contain inaccuracies, misspellings, inaccurate syntax or inappropriate word context that are a result of the inadequacies/shortcomings of said technology/software. documented in this encounterSouth[facility] Center11-25-2022 NoteHNO ID: [id number] Author: RT Fox(R) Service: ? Author Type: Technologist Type: Progress Notes Filed: 03/07/2022 7:51 AM Note Text: RADIOLOGY SERVICE PROGRESS NOTE SERVICE DATE: 03/07/2022 SERVICE TIME: 7:51 AM PATIENT IDENTITY VERIFICATION COMPLETED USING TWO (2) STANDARD IDENTIFIERS: Name and Date of confirmed by patient verbally POST EXAM PIV STATUS: Discontinued PROCEDURE TYPE: NM INJECT: PET/CT BODY SCAN. 7.2 mCi F18 FDG. No other medications given.. ADMINISTRATION TIME: 0736 PATIENT DISCHARGED TO: Ambulatory patient, left AL department area. A Diagnostic radioactive procedure has taken place, with no further precautions necessary other than routine body substance precautions. More information regarding radiation safety can be found using this link: [email or web address] SIGNATURE: RT Fox(R) PATIENT NAME: Cara Guerrero DATE: March 07, 2022 TIME: 7:51 AM PAGER/CONTACT #:[facility]11-25-2022 NoteHNO ID: [id number] Author: Stacia Russell RN Service: ? Author Type: Registered Nurse Type: Progress Notes Filed: 03/07/2022 7:39 AM Note Text: Radiology Service Progress Note DATE OF SERVICE: March 07, 2022 TIME: 7:39 AM PATIENT WEIGHT: 107 LBS PATIENT IDENTITY VERIFICATION COMPLETED USING TWO (2) STANDARD IDENTIFIERS: Name and Date of confirmed by patient verbally. FALL SCREENING: Has the patient had 2 falls in the last year or 1 fall with injury or currently using an Ambulatory Assistive Device (Walker, Cane, Wheelchair, Crutches, etc.)? No PATIENT GENDER DATA: Female. status: : No status: NO. ALLERGIES: Reviewed and unchanged EXAM: CT -CONTRAST INDUCED NEPHROPATHY RISK FACTORS: Not applicable CREATININE: Creatinine Date Value Ref Range Status 03/02/2018 0.48 (L) 0.58 - 0.96 mg/dL Final eGFR-All Other Races Date Value Ref Range Status 03/02/2018 >60 . Final Comment: eGFR (Estimated GFR) Units of measure: mL/min/1.73 meters squared eGFR is derived from the reexpressed MDRD Study equation using the following parameters: serum creatinine, age, gender and race. The creatinine assay has been calibrated to be traceable to IDMS. An eGFR <60 mL/min/1.73m2 for >3 months is consistent with chronic kidney disease. Refer to KDOQI guidelines for clinical interpretation. In patients with unstable renal function, e.g. those with acute kidney injury, the eGFR may not accurately reflect actual GFR. eGFR- Date Value Ref Range Status 03/02/2018 >60 Final P.O.C.T. RESULTS: POC done: Yes, See Lab Tab March 07, 2022 TREATMENT: N/A IV SITE: Ambulatory: A peripheral IV was started in the Left antecubital site with a Angio cath: 22 gauge. IV SITE APPEARANCE: Clean,Dry and Intact SIGNATURE: Stacia Russell RN PATIENT NAME: Cara Guerrero DATE: March 07, 2022 TIME: 7:39 [facility]11-11-2022 Miscellaneous Notes* Telephone Encounter - Alex Nash - 02/21/2022 11:41 AM EST Patient has been scheduled and notified of appointment. Alex Nash * Telephone Encounter - Alex Nash - 02/20/2022 2:12 PM EST I will have to work with Shrtuhi Martinez To find next available PET. Also, patient insurance will take at least 2 weeks. Alex Nash * Telephone Encounter - Julisa Pressley LPN - 02/20/2022 2:05 PM EST PET scan order pending your approval. Alex: Please schedule PET scan as indicated below. Julisa Pressley LPN Spoke with Dr. Cross and reviewed recent scan ... please set up Cara Lang for PET/CT as soon as possible then follow-up to review documented in this encounterSouth[facility]11-10-2022 Miscellaneous Notes* Telephone Encounter - Julisa Pressley LPN - 02/20/2022 1:[address] Israel please sign pended PET scan order that you requested for Cara. Alex: Please schedule PET as indicated below. Thanks Julisa Pressley LPN Spoke with Dr. Cross and reviewed recent scan ... please set up Cara Lang for PET/CT as soon as possible then follow-up to review documented in this encounterSouth[facility]02-24-2022 History of Present illness Narrative* Abdi Israel MD - 06/06/2021 4:50 PM EST Radiation Oncology - Follow Up Note PATIENT NAME: Cara Guerrero PATIENT DIAGNOSIS/PATIENT IDENTIFICATION: Ms. Guerrero is a 60-year-old woman with severe COPD, who is diagnosed with Stage IA3, [id number], non-small cell lung cancer arising from a nodule in the left upper lobe of the lung adjacent to the aortic arch. Given her severe COPD/emphysema requiring supplemental oxygen and her other medical comorbidities, she was not felt to be a surgical candidate and opted for definitive non-operative management of her early stage lung cancer with stereotactic body radiation therapy (SBRT) which she completed on 05/14/2018 (5000 cGy in 5 fractions). INTERVAL HISTORY/ROS: Ms. Guerrero returns to clinic today for routine follow-up approximately three years after the completion of her radiation treatments and one year since her last visit on 05/31/2020. In the interim, surveillance CT examination of the chest on 05/29/2021 which was stable without evidence of disease recurrence or metastatic lymphadenopathy. Today she describes recently having theflu and is recovering. Her breathing is roughly the same as last year with occasional flareups of her COPD as she continues on supplemental oxygen via nasal cannula at 2 L/min. She reports a dry cough without hemoptysis or chest pain or difficulty swallowing. She endorses stable energy with good appetite and hydration and stable weight. She otherwise denies any recent fevers, chills, headaches, difficulty with speech/swallowing, chestpain/palpitations, abdominal pain, nausea, vomiting, change in bowel/urinary habits, difficulty with gait/balance, recent falls, etc. The remainder of the review of systems was performed and was otherwise noncontributory. ALLERGIES ALLERGIES Allergen Reactions Levoquin [Levofloxa* Unknown Tendonitis but can take avalox MEDICATIONS: Current Outpatient Medications: budesonide (PULMICORT) 1 mg/2 mL nebulizer solution STIOLTO RESPIMAT 2.5-2.5 mcg/actuation mist montelukast (SINGULAIR) 10 mg tablet ipratropium/albuterol sulfate (DUONEB INHALATION) senna-docusate (SENOKOT-S) 8.6-50 mg per tablet albuterol (PROVENTIL) 2.5 mg/0.5 mL nebulizar solution PEDIATRIC ASTHMA Cetirizine (ZYRTEC) 10 mg cap MI-24 200 mg 24 hr capsule iv contrast (will be provided with radiology test) iv contrast (will be provided with radiology test) iv contrast (will be provided with radiology test) budesonide-formoterol (SYMBICORT) 160-4.5 mcg/actuation inhaler PHYSICAL EXAM: GENERAL: middle-aged woman sitting in chair on supplemental oxygen via nasal cannula in no acute distress. VITALS: BP 120/67 Pulse 97 Temp 97.7 Resp 20 Wt 114 lb (51.7kg) SpO2 93% KPS: 80 HEENT: NC/AT, anicteric sclera HEART: S1S2 LUNGS: non-labored breathing ABDOMEN: soft MUSCULOSKELETAL: no peripheral edema, moves all extremities. NEURO: no focal deficit; A&O X3. RADIOLOGIC DATA: CT Chest (05/29/2021) IMPRESSION: 1. Improved appearance to left upper lobe reticulonodular opacities, as above. Persistent area of prominent atelectasis/scarring at the posteromedial aspect of left upper lobe, stable. 2. Extensive emphysematous changes, subsegmental areas of atelectasis/scarring elsewhere, stable. 3. No substantial intrathoracic adenopathy is identified. ASSESSMENT AND PLAN: Ms. Guerrero is a 60-year-old woman with severe COPD, who is diagnosed with Stage IA3, [id number], non-small cell lung cancer arising from a nodule in the left upper lobe of the lungadjacent to the aortic arch. Given her severe COPD/emphysema requiring supplemental oxygen and her other medical comorbidities, she was not felt to be a surgical candidate and opted for definitive non-operative management of her early stage lung cancer with stereotactic body radiation therapy (SBRT) which she completed on 05/14/2018 (5000 cGy in 5 fractions). Ms. Guerrero is doing well clinically approximately 3 years out from the completion of her radiation treatments to the left chest with stable pulmonary function. Her surveillance imaging with CT examination of the chest earlier this month on 05/29/2021 was stable with no evidence of disease recurrenceor metastatic lymphadenopathy. I will plan to see her back in approximately [address] examination of the chest. The patient is aware to contact the clinic in the interim should any questions or concerns arise. Thank you for allowing us to participate in the care of this patient. Signed by: Abdi Israel MD I spent a total of 20 minutes on the date of the service which included preparing to see the patient, [id number] patient care and counseling and educating the patient/family/caregiver. This document has been created with the use of voice recognition technology. It may contain inaccuracies, misspellings, inaccurate syntax or inappropriate word context that are a result of the inadequacies/shortcomings of said technology/software. documented in this encounterSouthview [facility] Center10-01-2021 NoteChief Complaint consultation for nevus HPI Staff 60 year old female presents on consultation from Dr. Kenyon for right lower leg fresh colored skin lesion. Present for 4 months. Scabbed area from recent trama. Denies itching. Also notes dark pigmentedlesion to right zoroastrianism. Present 4 months. Does not bleed or itch. History of Present Illness 60 yo female with h/o COPD, previous lung cancer, on oxygen; referred for changing skin lesions; right lower extremity lesion enlarging; recently scratched so scabbed over; no bleeding; right zoroastrianism lesion with small scab, no pain or bleeding; no personal h/o skin cancer; h/o tanning bed use in past; no asa or NSAID use. Review of Systems PHQ Score Initial Depression Screen Score: 0 ROS - Provider Constitutional: no fever, no sweats, no weight loss. Eyes: no glasses, no blurred vision, no visual loss. ENMT: no dentures, no hoarseness, no swallowing difficulties, no hearing loss, no ear infection(s),no nose bleeds. Cardiovascular: normal blood pressure, no chest pain, regular heartbeat, no heart murmur. Respiratory: no shortness of breath, no cough, no asthma, no wheezing. Gastrointestinal: no nausea, no vomiting, no diarrhea, no constipation, no blood in stool, no change in bowel habits, no abdominal pain, no hepatitis. Genitourinary: no kidney stones, no urine infection, no dysuria. Musculoskeletal: no pain, no weakness. Skin: no changing moles, no rash, no skin lumps. Neurologic: no seizures, no epilepsy, no headache. Psychiatric: no emotional or psychiatric problem. Heme/Lymph: no bleeding problems, no anemia, no blood clots, no transfusions. Allergy/Immunologic: no swollen lymph nodes/glands, no IV drug abuse. Other: Additional ROS info: Except as noted in the above Review of Systems and in the History of Present Illness, all other systems have been reviewed and are negative or noncontributory. Physical Exam Vitals & Measurements T: 36.5 ?C (Temporal Artery) HR: 72(Peripheral) RR: 16 BP: 116/72 HT: 162.56 cm HT: 162.6 cm WT: 53 kg WT: 53.0 kg BMI: 20.06 HEENT: normal conjunctiva, sclera clear, no scleral icterus, EOM intact, PERRLA, oral mucosa moist without lesions. Neck: trachea midline, no mass, symmetric, no thyromegaly or nodules, no adenopathy Respiratory: lungs CTA, respirations non labored. Cardiovascular: regular rate and rhythm, no murmur, no pedal edema or varicosities. Gastrointestinal: soft, non distended, no tenderness, no masses, no palpable hernias, diastasis recti no, no hepatosplenomegaly; normal bs Lymphatic: no cervical adenopathy, no axillary adenopathy, no inguinal adenopathy. Musculoskeletal: normal gait, digits and nails without infection, nodes, cyanosis, clubbing. Skin: no rashes right zoroastrianism with 4 mm raised, erythematous lesion with central scab; right lower extremity with 7 mm irregular, keratotic lesion with central scab, no pigmentation change, no ulcers,no subcutaneous nodules, induration. Psychiatric/Neuro: oriented to time, place, person, judgement normal, affect appropriate for age, insight intact, no focal deficits. Tests: review of old records completed, Discussed surgical options, risks, and possible complications with patient. Assessment/Plan 1. Neoplasm of uncertain behavior of skin of face, (D48.5: Neoplasm of uncertain behavior of skin)Neoplasm of uncertain behavior of skin of lower leg plan excisional biopsy under local anesthesia in the office; informed consent obtained. Follow-up No qualifying data available Problem List/Past Medical History Ongoing Anxiety BMI 20.0-20.9, adult Chronic obstructive pulmonary disease Neoplasm of uncertain behavior of skin of face Neoplasm of uncertain behavior of skin of lower leg Nevus Non-small cell lung cancer Sleep apnea Smoker Historical Carcinoma of lung Procedure/Surgical History Bronchoscopy (03/31/2018), Appendectomy, Biopsy of lung, section. Medications albuterol 0.083% Inh Irma 3 mL, NEB, q6hr Bevespi Aerosphere 9 mcg-4.8 mcg/inh inhalation aerosol, 2 puff(s), Inhalation, BID budesonide 1 mg/2 mL inhalation suspension, 1 mg= 2 mL, NEB, Daily cetirizine 10 mg Tab, Oral, Daily montelukast 10 mg Tab, Oral, Daily Mi-24, 100 mg, Oral, Daily Ventolin HFA 90 mcg/inh Aerosol, Inhalation, q6hr Allergies Keflex (Unknown) Levaquin (Unknown) Social History Alcohol - Denies Alcohol Use, 01/11/2021 Substance Abuse - Denies Substance Abuse, 01/11/2021 Tobacco Former smoker, quit more than 30 days ago Tobacco Use:. Never Smokeless Tobacco Use:. Cigarettes, 2per day. Started age 16.0 Years. Stopped age 50 Years., 01/11/2021 Family History Acute myocardial infarction: Brother. Cardiac arrest: Mother, Father and Sister.[facility] SystemComment on above:Result Comment: Electronically Signed By: JIM DAVENPORT, Jose Domínguez\Date and Time Signed: 01/11/21 11:20 [id number] History general Narrative - Reported* Type Description Date Medical History COPD Surgical History appendectomy Surgical History csection Hospitalization History PNA at [facility] 05/2011 [facility] Other Evaluation note* Diagnosis Non-small cell cancer of left lung (HCC)- Primary Neoplasm of lung Neoplasm of unspecified nature of respiratory system [facility] Neoplasm of lung- Primary Neoplasm of unspecified nature of respiratory system [facility] Diagnosis Non-small cell cancer of left lung (HCC)- [facility] Lung mass- Primary Swelling, mass, or lump in chest [facility] Diagnosis Preoperative examination- Primary Preoperative examination, unspecified Bronchiolar disease Other diseases of trachea and bronchus [facility] Diagnosis Non-small cell cancer of left lung (HCC)- Primary Lung mass Swelling, mass, or lump in chest Centrilobular emphysema (HCC) Other emphysema Bronchiolar disease Other diseases of trachea and bronchus [facility] Diagnosis Bronchiolar disease Other diseases of trachea and bronchus Lung nodule Solitary pulmonary nodule [facility] Diagnosis Aspergillus pneumonia (HCC)- Primary Aspergillosis Non-small cell cancer of left lung (HCC) [facility] Diagnosis Non-small cell cancer of left lung (HCC)- Primary [facility] Other evalusrkzk note* Diagnosis Neoplasm of lung- Primary Neoplasm of unspecified nature of respiratory system [facility] Diagnostic Procedure Only (Routine) - Additional Clinical Info Needed Specialty Diagnoses / Procedures Referred By Contac t Referred To Contact MOLECULAR & FUNCTIONAL IMAGING Diagnoses Neoplasm of lung Procedures NM PET/CT SKULL-THIGH INITIAL PET IMAGING CT ATTENUATION SKULL BASE MID-THIGH Abdi Israel MD [address] [place] [address] [place] [address] Molecular & Functional Imaging [address] [place] [address] Referral ID Status Reason Start Date Expiration Date Visits Requested Visits Authorized [id number] Additional Clinical Info Needed Auto-Generat ed Referral 03/22/2023 1 1 [facility] Summary Purpose Family History No Family History Records FoundNo Family History Records FoundNo Family History Records FoundNo Family History Records FoundNo Family History Records FoundNo Family History Records FoundNo Family History Records Found Advance Directives No Advanced Directives Records FoundDocuments on File Type Date Recorded Patient Communications Assistant Expl anation Advance Directive(s) Advance Directive(s) 03/19/2018 8:37 AM Reason for Referral Specialty Diagnoses / Procedures Referred By Contac t Referred To Contact CT IMAGING Diagnoses Non-small cell cancer of left lung (HCC) Neoplasm of lung Procedures CT CHEST W IVCON DIAGNOSTIC COMPUTED TOMOGRAPHY THORAX W/CONTRAST Abdi Israel MD [address] [place] [address] [place] [address] Ct Imaging Referral ID Status Reason Start Date Expiration Date Visits Requested Visits Authorized [id number] Pending Review Auto-Generat ed Referral 06/06/2022 07/06/2022 1 1 Specialty Diagnoses / Procedures Referred By Contac t Referred To Contact CT IMAGING Diagnoses Lung mass Procedures CT CHEST WO IVCON DIAGNOSTIC COMPUTED TOMOGRAPHY THORAX W/O CNTRSVitor Tamayo MD [address] [place] [address] Ct Imaging Referral ID Status Reason Start Date Expiration Date Visits Requested Visits Authorized [id number] Pending Review Auto-Generat ed Referral 04/22/2022 05/22/2023 1 1 Specialty Diagnoses / Procedures Referred By Contac t Referred To Contact [facility] Diagnoses Lung mass Procedures ECG COMPLETE ECG ROUTINE ECG W/LEAST 12 LDS W/I&R Vitor Farias MD [address] [place] [address] [facility] [address] [place] [address] Referral ID Status Reason Start Date Expiration Date Visits Requested Visits Authorized [id number] Pending Review Auto-Generat ed Referral 04/22/2022 04/22/2023 1 1 Specialty Diagnoses / Procedures Referred By Contac t Referred To Contact Infectious Diseases Diagnoses Aspergillus pneumonia (HCC) Non-small cell cancer of left lung (HCC) Procedures CONSULT TO INFECTIOUS DISEASES Abdi Israel MD [address] [place] [address] [place] [address] Referral ID Status Reason Start Date Expiration Date Visits Requested Visits Authorized [id number] Ref Not Required PCP Requested Referral 05/14/2022 05/14/2023 1 1 Specialty Diagnoses / Procedures Referred By Contac t Referred To Contact CT IMAGING Diagnoses Neoplasm of lung Procedures CT CHEST W IVCON DIAGNOSTIC COMPUTED TOMOGRAPHY THORAX W/CONTRAST Abdi Israel MD [address] [facility] [facility] [address] Ct Imaging [id number] Referral ID Status Reason Start Date Expiration Date Visits Requested Visits Authorized [id number] Pending Review Auto-Generat ed Referral 05/13/2023 12/27/2023 1 1 Medications Administered Section Inactive Administered Medications - up to 3 most recent administrations Medication Order MAR Action Action Date Dose Rate Site NaCl 0.9% iv infusion 5-30 mL/hr, INTRAVENOUS, CONTINUOUS, Starting on Thu05/09/22 at 0730, Until 05/10/22 at 0304, Preprocedure Additional Source Comments INFORMATION SOURCE (unrecogn ized section and content) DATE CREATED AUTHOR 10/06/2017 [facility] DATE CREATED AUTHOR AUTHOR'S ORGANIZ ATION 10/09/2017 [facility] DATE CREATED AUTHOR AUTHOR'S ORGANIZ ATION 03/22/2018 [facility] DATE CREATED AUTHOR AUTHOR'S ORGANIZ ATION 03/26/2021 Jhonatan España [facility] DATE CREATED AUTHOR AUTHOR'S ORGANIZ ATION 04/29/2022 [facility] DATE CREATED AUTHOR AUTHOR'S ORGANIZ ATION 09/19/2022 [facility] DATE CREATED AUTHOR AUTHOR'S ORGANIZ ATION 12/10/2022 [facility] Source Comments (unrecognize d section and content) In the event this informatio n is protected by the Federal Confidentiality of Alcohol and Drug Abuse Patient Records regulations: The Federal rules restrict any use of the information to criminally investigate or prosecute any alcohol or drug abuse patient.[facility] the event this information is protected by the Federal Confidentiality of Alcohol and Drug Abuse Patient Records regulations: The Federal rules restrict any use of the information to criminally investigate or prosecute any alcohol or drug abuse patient.[facility] the event this information is protected by the Federal Confidentiality of Alcohol and Drug Abuse Patient Records regulations: The Federal rules restrict any use of the information to criminally investigate or prosecute any alcohol or drug abuse patient.[facility] Center[facility] the event this information is protected by the Federal Confidentiality of Alcohol and Drug Abuse Patient Records regulations: The Federal rules restrict any use of the information to criminally investigate or prosecute any alcohol or drug abuse patient.[facility] Center[facility] the event this information is protected by the Federal Confidentiality of Alcohol and Drug Abuse Patient Records regulations: The Federal rules restrict any use of the information to criminally investigate or prosecute any alcohol or drug abuse patient.[facility] Center[facility] the event this information is protected by the Federal Confidentiality of Alcohol and Drug Abuse Patient Records regulations: The Federal rules restrict any use of the information to criminally investigate or prosecute any alcohol or drug abuse patient.[facility] CenterIn the event this information is protected by the Federal Confidentiality of Alcohol and Drug Abuse Patient Records regulations: The Federal rules restrict any use of the information to criminally investigate or prosecute any alcohol or drug abuse patient.[facility] Center[facility] the event this information is protected by the Federal Confidentiality of Alcohol and Drug Abuse Patient Records regulations: The Federal rules restrict any use of the information to criminally investigate or prosecute any alcohol or drug abuse patient.[facility] Center[facility] the event this information is protected by the Federal Confidentiality of Alcohol and Drug Abuse Patient Records regulations: The Federal rules restrict any use of the information to criminally investigate or prosecute any alcohol or drug abuse patient.[facility] Center[facility] the event this information is protected by the Federal Confidentiality of Alcohol and Drug Abuse Patient Records regulations: The Federal rules restrict any use of the information to criminally investigate or prosecute any alcohol or drug abuse patient.[facility] CenterIn the event this information is protected by the Federal Confidentiality of Alcohol and Drug Abuse Patient Records regulations: The Federal rules restrict any use of the information to criminally investigate or prosecute any alcohol or drug abuse patient.[facility] CenterIn the event this information is protected by the Federal Confidentiality of Alcohol and Drug Abuse Patient Records regulations: The Federal rules restrict any use of the information to criminally investigate or prosecute any alcohol or drug abuse patient.[facility] CenterIn the event this information is protected by the Federal Confidentiality of Alcohol and Drug Abuse Patient Records regulations: The Federal rules restrict any use of the information to criminally investigate or prosecute any alcohol or drug abuse patient.[facility] CenterIn the event this information is protected by the Federal Confidentiality of Alcohol and Drug Abuse Patient Records regulations: The Federal rules restrict any use of the information to criminally investigate or prosecute any alcohol or drug abuse patient.[facility] CenterIn the event this information is protected by the Federal Confidentiality of Alcohol and Drug Abuse Patient Records regulations: The Federal rules restrict any use of the information to criminally investigate or prosecute any alcohol or drug abuse patient.[facility] Reason for Visit (unrecogniz ed section and content) Reason Comments Lung Cancer Reason Comments Orders Reason Comments Orders Reason Comments Lung Cancer Reason Comments Appointment PreOp Bronch Reason Comments Patient Update Appointment Reason Comments Lung Cancer Lung Mass Reason Comments Appointment Specialty Diagnoses / Procedures Referred By Contac t Referred To Contact ADMITTING Diagnoses Bronchiolar disease Procedures [facility] INCL FLUOR GDNCE DX W/CELL WASHG SPX BRONCHOSCOPY [facility] H[address] [address] Referral ID Status Reason Start Date Expiration Date Visits Re quested Visits Authorized [id number] 1 1 Reason Comments Appointment Care Teams (unrecognized sec tion and content) Unit Supervisor Relationship Specialty Start Date End Date Adithya Kenyon MD [address] [id number] PCP - General Family Practice 02/25/18 Unit Supervisor Relationship Specialty Start Date End Date Adithya Kenyon MD [address] [place] [address] PCP - General Family Medicine 02/25/18 Unit Supervisor Relationship Specialty Start Date End Date Adithya Kenyon MD [address] [place] [address] PCP - General Family Medicine 02/25/18 Unit Supervisor Relationship Specialty Start Date End Date Adithya Kenyon MD [address] [place] [address] PCP - General Family Medicine 02/25/18 Unit Supervisor Relationship Specialty Start Date End Date Adithya Kenyon MD [address] [place] [address] PCP - General Family Medicine 02/25/18 Unit Supervisor Relationship Specialty Start Date End Date Adithya Kenyon MD [address] [place] [address] PCP - General Family [facility] 02/25/18 Unit Supervisor Relationship Specialty Start Date End Date Adithya Kenyon MD [address] [place] [address] PCP - General [facility] 02/25/18 Unit Supervisor Relationship Specialty Start Date End Date Adithya Kenyon MD [address] [place] [address] PCP - General Family [facility] 02/25/18 Unit Supervisor Relationship Specialty Start Date End Date Adithya Kenyon MD [address] [place] [address] PCP - General [facility] 02/25/18 Unit Supervisor Relationship Specialty Start Date End Date Adithya Kenyon MD PCP - General Family [facility] 02/25/18 Unit Supervisor Relationship Specialty Start Date End Date Adithya Kenyon MD PCP - General [facility] 02/25/18 Continuous Active and Recently Administ ered Medications (unrecognized section and content) Medication Order 05/07/2022 05/08/2022 05/09/2022 NaCl 0.9% iv infusion 5-30 mL/hr, INTRAVENOUS, CONTINUOUS, Starting on Thu05/09/22 at 0730, Until 05/10/22 at 0304, Preprocedure 0730 (Due) FOR RECORDS PERTAINING TO PATIENTS WHO ARE OR HAVE BEEN ENROLLED IN A CHEMICAL DEPENDENCY/SUBSTANCEABUSE PROGRAM, SOME INFORMATION MAY BE OMITTED. This clinical summary was aggregated from multiple sources. Caution should be exercised in using it in the provision of clinical care. This summary normalizes information from multiple sources, and as a consequence, information in this document may materially change the coding, format and clinical context of patient data. In addition, data may be omitted in some cases. CLINICAL DECISIONS SHOULD BE BASED ON THE PRIMARY CLINICAL RECORDS. [facility]. provides no warranty or guarantee of the accuracy or completeness of information in this document.
[2023-04-03 16:13] LABS: Influenza Virus A Antigen Negative; Influenza Virus B Antigen Negative; Internal Control Within Normal Limits; Respiratory Syncytial Virus Not Detected (NOT DETECTE); SARS-CoV-2 Ag NEGATIVE (NEGATIVE)
[2023-04-05 12:27] LABS: SARS-CoV-2 NAA INCONCLUSIVE (NOT DETECTE)
== END 2023-04-03 13:21 | disposition home or self-care (01) ==
LOC: LAB 13:22
PROVIDERS: PCP Family Medicine; Visit Provider Family Medicine
DX: Z20.822 Contact with and (suspected) exposure to COVID-19 (principal); Z11.8 Encounter for screening for other infectious and parasitic diseases
CPT/HCPCS: 87420; 87635; 87798; 87804; 87811

== ENCOUNTER 2023-05-07 07:16 | Inpatient (IN) | payer OTHER, SELFPAY ==
[2023-05-07] VITALS (19 sets, daily range): BP systolic 123–155; BP diastolic 68–79; PULSE 114–144; RESP 20–32; TEMP 36.4–37; O2SAT 86–97; BMI 15.6; BMI 16.2
--- NOTE | 2023-05-07 07:42 | ECG_ITS ---
[facility] Test Date: 2023-05-07 Pat Name: PHOEBE STANLEY Department: Room: [facility] Gender: Female Special Procedure Technologist: : 1960 Requested By: ADITHYA KENYON Order Number: [id number] Reading MD: ADITHYA KENYON Measurements Intervals [place] Rate: 128 P: 93 ME: 168 QRS: 85 QRSD: 78 T: 86 QT: 344 QTc: 420 Interpretive Statements 1120 Sinus tachycardia 4068 Nonspecific Twave abnormality 0102 ARTIFACT PRESENT 9140 abnormal rhythm ECG Compared to ECG 03/04/2023 20:19:02 Atrial abnormality no longer present Electronically Signed On 05-08-2023 6:23:32 EST by ADITHYA KENYON
--- NOTE | 2023-05-07 07:45 | ED.SOB1 ---
HPI - SOB/Dyspnea General Chief Complaint: Shortness of Breath/Dyspnea Stated Complaint: SHORTNESS OF BREATH Time Seen by Provider: 05/07/23 07:22 Source: patient Mode of arrival: Wheelchair History of Present Illness HPI Narrative: patient with COPD, who sees Dr Garcia in [place] (Pulm) and Dr Bass as her PCP, presents with increased shortness of breath despite taking doxycycline and a prednisone taper at home this week. She had spoken with both her hardener helper and her PCP. She was trying to avoid admission but has failed out-patient therapy. She denied any fever or chills. No chest pain. Mild occasional cough with little to no sputum production. No GI or symptoms. Related Data Home Medications Medication Instructions Recorded Confirmed albuterol sulfate 90 mcg/actuation 2 puff inhalation Q4H PRN 09/22/22 03/04/23 aerosol inhaler (Ventolin HFA) shortness of breath or wheezing budesonide 0.5 mg/2 mL suspension 0.5 mg inhalation Q12H PRN 09/22/22 03/04/23 for nebulization shortness of breath or wheezing ipratropium 0.5 mg-albuterol 3 mg 3 ml inhalation Q6H PRN shortness 09/22/22 03/04/23 (2.5 mg base)/3 mL nebulization of breath soln montelukast 10 mg tablet 10 mg PO .hs 09/22/22 03/04/23 tiotropium 2.5 mcg-olodaterol 2.5 2 puff inhalation Q24H 09/22/22 03/04/23 mcg/actuation mist for inhalation (Stiolto Respimat) albuterol sulfate 90 mcg/actuation 2 inh inhalation QID PRN SOB 02/07/23 03/04/23 aerosol inhaler (ProAir HFA) nystatin 100,000 unit/mL oral 5 ml PO QID PRN thrush 02/07/23 03/04/23 suspension sodium chloride 3 % for 4 ml inhalation Q8H PRN SOB 02/07/23 03/04/23 nebulization (NebuSal) theophylline 400 mg 400 mg PO DAILY 02/07/23 03/04/23 tablet,extended release 24 hr Previous Rx's Medication Instructions Recorded fluticasone propionate 50 2 spray intranasal QD #16 grams 09/25/22 mcg/actuation nasal spray,suspension saliva substitute combo no.9 15 ml mucous membrane BID PRN dry 09/25/22 (Biotene Dry Mouth Oral Rinse mouth #1,000 mL mouthwash) Allergies Allergy/AdvReac Type Severity Reaction Status Date / Time levofloxacin [From Levaquin] Allergy Intermediate Verified 03/04/23 19:29 [facility] Medical History (Updated 05/07/23 @ 07:53 by Kamlesh Schmidt) Community acquired pneumonia ?J18.9 - Pneumonia, unspecified organism (ICD-10) Acute infective exacerbation of chronic obstructive airway disease ?J44.1 - Chronic obstructive pulmonary disease with (acute) exacerbation (ICD-10) Acute bronchitis ?J20.9 - Acute bronchitis, unspecified (ICD-10) Acute and chronic respiratory failure with hypoxia ?J96.21 - Acute and chronic respiratory failure with hypoxia (ICD-10) Iron deficiency anemia ?D50.9 - Iron deficiency anemia, unspecified (ICD-10) Sinus tachycardia ?R00.0 - Tachycardia, unspecified (ICD-10) Acute exacerbation of chronic obstructive pulmonary disease ?J44.1 - Chronic obstructive pulmonary disease with (acute) exacerbation (ICD-10) Chronic obstructive pulmonary disease ?J44.9 - Chronic obstructive pulmonary disease, unspecified (ICD-10) Family History (Updated 09/22/22 @ 21:17 by Veronika Almeida) Other Family history of myocardial infarction Social History (Updated 09/22/22 @ 21:18 by Veronika Almeida) Within the past year, how often did you have a drink containing alcohol: never Score interpretation: A score less than 3 is consistent with normal alcohol consumption. Smoking status: Former smoker Non-prescribed substance use: denies use Previous occupational history: disabled Highest level of school completed/degree received: GED or equivalent Are you now , , , , never or living with a partner: In a typical week, how many times do you talk on the telephone with family, friends, or neighbors: 3 or more times per week How often do you get together with friends or relatives: 3 or more times per week How often do you attend baptism or yazidism services: 1-3 times per year Do you belong to any clubs or organizations such as baptism groups unions, fraternal or athletic groups, or school groups: no Total score: 2 Score interpretation: A score of greater than or equal to 2 indicates the lowest level of social isolation. Little interest or pleasure in doing things: not at all Feeling down, depressed, or hopeless: not at all Feel stressed/tense/nervous/anxious/difficulty sleeping: not at all Do you think of yourself as: straight/heterosexual Gender Identity: female Exam Narrative Exam Narrative: Nurses notes and vital signs reviewed and patient is not hypoxic on 2LPM NC. afebrile General: tachypneic with mild distress. Skin: Warm, dry, no pallor noted. Eye: Pupils are equal, round and EOMI. No scleral icterus. Ears, Nose, Mouth, and Throat: TM are clear, no posterior oropharynx erythema or nasal mucosal hypertrophy, uvula is mid-line Oral mucosa is moist Cardiovascular: Tachycardia. Respiratory: Increased work of breathing with accessory muscle use and tachypnea. Lungs with decreased air exchange, expiratory wheezing & rhonchi Musculoskeletal: normal ROM, no calf or popliteal tenderness, no lower extremity edema/swelling GI: Abdomen is soft, non-distended. Normal bowel sounds. No tenderness to palpation. No rebound, guarding, or rigidity noted. Neurological: A&O x4. No cranial nerve dysfunction observed. No truncal ataxia. Moves all extremities. Sensation intact. Psychiatric: Cooperative and interactive. Normal mood and affect. Constitutional Vital Signs, click to edit/add: Last Vital Signs Temp 98.6 F 05/07/23 07:19 Pulse 140 H 05/07/23 07:57 Resp 32 H 05/07/23 07:19 BP 134/78 05/07/23 07:27 Pulse Ox 97 05/07/23 07:59 O2 Del Method Nasal Cannula 05/07/23 07:59 O2 Flow Rate 2 05/07/23 07:59 Course Vital Signs Vital signs: Vital Signs Temperature 98.6 F 05/07/23 07:19 Pulse Rate 138 H 05/07/23 07:19 Respiratory Rate 32 H 05/07/23 07:19 Blood Pressure 151/79 H 05/07/23 07:19 Pulse Oximetry 86 L 05/07/23 07:19 Oxygen Delivery Method Nasal Cannula 05/07/23 07:19 Oxygen Delivery Flow Rate 2 05/07/23 07:19 Temperature 98.6 F 05/07/23 07:19 Pulse Rate 140 H 05/07/23 07:57 Respiratory Rate 32 H 05/07/23 07:19 Blood Pressure 134/78 05/07/23 07:27 Pulse Oximetry 97 05/07/23 07:59 Oxygen Delivery Method Nasal Cannula 05/07/23 07:59 Oxygen Delivery Flow Rate 2 05/07/23 07:59 MDM - SOB/Dyspnea MDM Narrative Medical decision making narrative: Patient was placed on fire range technician and EKG obtained. Blood drawn and sent for evaluation. Solumedrol given IV and Duoneb given per RT. Patient declined offer for vapotherm and refused BiPap/CPAP. portable CXR and respiratory panel obtained. WBC 17k, left shift noted. Troponin and BNP normal/negative. BMP notable for elevated CO2. respiratory panel pending. CXR report detailed below. Case discussed with Dr Bass and he will [facility] with telemetry, obs basis. He saw her in the ED. Medical Records Attestation: I reviewed the patient's medical records. Lab Data Attestation: I reviewed the patient's lab results. Labs: Lab Results 05/07/23 Range/Units 07:37 WBC 17.1 H (4.0-11.0) 10^3/uL RBC 4.62 (4.20-5.40) 10^6/uL Hgb 12.8 (12.0-16.0) g/dL Hct 41.8 (36.0-48.0) % MCV 90.5 (81.0-99.0) fL MCH 27.7 (26.7-34.0) pg MCHC 30.6 (29.9-35.2) g/dL RDW 13.2 (11.0-15.0) % Plt Count 270 (150-450) 10^3/uL MPV 9.7 (9.5-13.5) fL Neut % (Auto) 84.6 H (43.0-75.0) % Lymph % (Auto) 7.5 L (20.5-60.0) % [place] % (Auto) 6.7 (1.7-12.0) % Eos % (Auto) 0.7 L (0.9-7.0) % Baso % (Auto) 0.2 (0.2-2.0) % Neut # (Auto) 14.5 H (1.4-6.5) 10^3/uL Lymph # (Auto) 1.3 (1.2-3.8) 10^3/uL [place] # (Auto) 1.2 H (0.3-0.8) 10^3/uL Eos # (Auto) 0.1 (0.0-0.7) 10^3/uL Baso # (Auto) 0.0 (0.0-0.1) 10^3/uL Abs Immat Gran (auto) 0.05 H (0.00-0.03) 10^3/uL Imm/Tot Granulo (auto) 0.3 (0.0-0.5) % Sodium 139 (136-145) mmol/L Potassium 3.6 (3.5-5.1) mmol/L Chloride 95 L (98-107) mmol/L Carbon Dioxide 37.2 H (21.0-32.0) mmol/L Anion Gap 10.4 BUN 6.0 L (7.0-18.0) mg/dL Creatinine 0.50 L (0.55-1.02) mg/dL Est GFR ( Amer) >60 (>=60) Est GFR (Non-Af Amer) >60 (>=60) BUN/Creatinine Ratio 12.0 Glucose 119 H (74-106) mg/dL Lactate 1.6 (0.4-2.0) mmol/L Calcium 9.7 (8.5-10.1) mg/dL Troponin I High Sens 5.3 (4.0-51.3) pg/mL NT-Pro-B Natriuret Pep 170.0 (<=900.0) pg/mL Imaging Data Chest x-ray: Radiologist's impression: IMPRESSION: 1. Grossly stable, chronic marked COPD. 2. Suspect small bilateral pleural effusions. No convincing acute infiltrates. Electronically authenticated by: LINDA TANG Date: 05/07/2023 08:22 ECG Data Attestation: I personally reviewed and interpreted this ECG as follows: Interpretation: EKG interpretation: Emergency Department physician interpretation. Sinus tachycardia at 128bpm. Normal axis, normal intervals and non specific T wave changes. No ST segment elevation or depression. Discharge Plan Discharge Chief Complaint: Shortness of Breath/Dyspnea Clinical Impression: Tachypnea, Failure of outpatient treatment, Tachycardia, Acute exacerbation of chronic obstructive pulmonary disease (COPD) Patient Disposition: Admitted as Observation Time of Disposition Decision: 07:52
--- OUTSIDE RECORDS SUMMARY | 2023-05-07 07:45 | XMS_ITS | CCD ---
Author Name Unknown Address [address] [place] [address] Organization [facility] Care Team Providers Care Fleet Sales Associate Name Role Phone Adithya Kenyon Unavailable Unavailable JAYE HOUGH Unavailable Unavailable ADITHYA KENYON Unavailable Unavailable DUGLAS FERNANDEZ Unavailable Unavailable Adithya Kenyon MD Primary Care Provider [phone] Adithya Kenyon MD Primary Care Provider [phone] [...] HOY ., DR HAJI Primary Care Unavailable HILLER, DR JULES Naranjo Consulting Unavailable HOY ., DR HAJI Admitting Unavailable HOY ., DR HAJI Attending Unavailable HOY ., DR HAJI Consulting Unavailable HOY ., DR HAJI Primary Care Unavailable HOY ., DR HAJI Admitting Unavailable CHANTALE ., DR HAJI Attending Unavailable HOY ., DR HAJI Consulting Unavailable HOY ., DR HAJI Primary Care Unavailable ELTON, DR GARCIA Admitting Unavailable BLANK, DR GARCIA Attending Unavailable BLANK, DR GARCIA Consulting Unavailable JESSEY ., DR HAJI Primary Care Unavailable Adithya Kenyon MD Primary Care Provider [phone] CHANTALE, ADITHYA M Primary Care Unavailable YASMIN SORENSEN Attending Unavailable NATY SORENSENALI Admitting Unavailable CICENIA, VITOR C Referring Unavailable [...] ABDI Referring Unavailable LINDY, ABDI Attending Unavailable LAMENIA, VITOR C Referring Unavailable HOY, ADITHYA M Primary Care Unavailable ANA DRIVER Attending Unavailable Allergies Allergy Classification Reported Allergen(s) Allergy Type Date of Onset Reaction(s) Facility (20 sources) levoFLOXacin; Translations: [LEVOFLOXACIN] Drug Allergy 03-02-2018 Unknown [facility] Other [place] Rep[facility] (2 sources) levoFLOXacin Drug Allergy [facility] Repository Medications Current Medications Medication Drug Class(es) Dates Sig (Normalized) Sig (Original) albuterol 0.833 mg/ml / ipratropium bromide 0.167 mg/ml inhalation solution (3 sources) Anticholinergic, beta2-Adrenergic Agonist Ipratropium-Albutero l 0.5-2.5 (3) MG/3ML DIRECTED Inhalation Active nystatin 934446 unt/ml oral suspension (3 sources) Polyene Antifungal [...] mouth. 0 Active take 1 tablet by pankaj every twenty-four hours Cetirizine HCl 10 MG 1 tablet Orally Onc e a day Active Comment on above: Take by mouth. docusate sodium 50 mg / sennosides, chcf 8.6 mg oral tablet (15 sources) Start: 05-25-2018 take 2 tablets by mouth every twelve hours as needed senna-docusate (SENOKOT-S) 8.6-50 mg per tablet Take 2 tablets by mouth twice daily as needed. 100 tablet 1 05/25/2018 Active Comment on above: Take 2 tablets by mo [facility] twice daily as needed. 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 Driver and using her nebulizers. She [...] COPD, who is diagnosed with Stage IA3, [id number], non-small cell lung cancer arising from a [...] the chest. She will follow with her furniture salesperson Dr. Driver to optimize her respiratory function [...] total o (more content not included)... Normal [facility] CNPHiwot 11-18-2022 CNPN Telephone (HEMTSA) LIZETHPHOEBE ([id number]) 1960 F Date Time Provider Department 11/18/22 CED VICTORIA During your visit today, we recorded the following information about you: Ced Victoria RN 11/18/2022 1:43 PM Signed Pt called for CT 11/19/22. [address] reports [address] completed 09/24/22 at [facility]. CT chest verified and will send images/report. LORENZO: Would you like to cancel CT? Please advise LUCIE Baer Saju, MD 11/18/2022 2:11 PM Signed Yes, please cancel CT tomorrow. In addition to the images, please request any office notes from Dr. Kenyon as well as her furniture salesperson. Thanks! Ced Park RN 11/18/2022 2:50 PM Signed Pt notified, CT canceled. Katerina working on records from Dr Kenyon and Dr Driver. Images/report being pushed from [facility]. LUCIE Baer Ariana, LPN 11/18/2022 3:33 [...] Status:Closed by CED VICTORIA on 11/19/[address] [facility] CULTURE BLOODon 09-07-2022 Microscopic examination of [...] Trimethoprim/Sulfameth oxazole 20 S F Normal [facility] Comment on above: Performed By: #### B [id number] #### [facility] [address] [address] [address] Geri Pradhan CBC AUTO DIFFon 09-05-2022 BASO # 0.0 103/ul Normal 0.0-0.1 [facility] Comment on above: Performed By: #### C BC #### [facility] [address] [place], [place] [address] Dr. Geri Pradhan Basophils/100 WBC (Bld) 0.2 % Normal 0.2-2.0 [facility] Comment on above: Performed By: #### C BC #### [facility] [address] [address] [address] Geri Pradhan EO # 0.0 103/ul Normal 0.0-0.7 [facility] Comment on above: Performed By: #### C BC #### [facility] [address] [address] [address] Geri Pradhan Eosinophils/100 WBC (Bld) 0.0 % Critically low 0.9-7.0 [facility] Comment on above: Performed By: #### C BC #### [facility] [address] [place] [address] Dr. Geri Pradhan Erythrocyte distribution width (RBC) [Ratio] 13.8 % Normal 11.0-15.0 [facility] Comment on above: Performed By: #### C BC #### [facility] [address] [place] [address] Dr. Geri Pradhan Hematocrit (Bld) [Volume fraction] 38.8 % Normal 36.0-48.0 [facility] Comment on above: Performed By: #### C BC #### [facility] [address] [place] [address] Dr. Geri Pradhan Hemoglobin (Bld) [Mass/Vol] 11.7 g/dL Critically low 12.0-16.0 [facility] Comment on above: Performed By: #### C BC #### [facility] [address] [place] [address] Dr. Geri Pradhan IG # 0.27 10e3/ul Critically high 0.00-0.03 [facility] Comment on above: Performed By: #### C BC #### [facility] [address] [place] [address] Dr. Geri Pradhan IG % 2.9 % Critically high 0.0-0.5 [facility] Comment on above: Performed By: #### C BC #### [facility] [address] [place] [address] Dr. Geri Pradhan LYMPH # 0.4 103/ul Critically low 1.2-3.8 [facility] Comment on above: Performed By: #### C BC #### [facility] [address] [address] [address] Geri Pradhan Lymphocytes/100 WBC (Bld) 4.4 % Critically low 20.5-60.0 [facility] Comment on above: Performed By: #### C BC #### [facility] [address] [place] [address] Dr. Geri Pradhan MANUAL DIFF REQ NO Normal [facility] Comment on above: Performed By: #### C BC #### [facility] [address] [place] [address] Dr. Geri Pradhan MCH (RBC) [Entitic mass] 26.8 pg Normal 26.7-34.0 [facility] Comment on above: Performed By: #### C BC #### [facility] [address] [place] [address] Dr. Geri Pradhan MCHC (RBC) [Mass/Vol] 30.2 g/dL Normal 29.9-35.2 [facility] Comment on above: Performed By: #### C BC #### [facility] [address] [place] [address] Dr. Geri Pradhan MCV (RBC) [Entitic vol] 88.8 fL Normal 81.0-99.0 [facility] Comment on above: Performed By: #### C BC #### [facility] [address] [place] [address] Dr. Geri Pradhan MONO # 0.3 103/ul Normal 0.3-0.8 [facility] Comment on above: Performed By: #### C BC #### [facility] [address] [place] [address] Dr. Geri Pradhan Monocytes/100 WBC (Bld) 3.6 % Normal 1.7-12.0 [facility] Comment on above: Performed By: #### C BC #### [facility] [address] [place] [address] Dr. Geri Pradhan NEUT # 8.2 103/ul Critically high 1.4-6.5 [facility] Comment on above: Performed By: #### C BC #### [facility] [address] [address] [address] Geri Pradhan Neutrophils/100 WBC (Bld) 88.9 % Critically high 43.0-75.0 [facility] Comment on above: Performed By: #### C BC #### [facility] [address] [address] [address] Geri Pradhan Platelet mean volume (Bld) [Entitic vol] 9.1 fL Critically low 9.5-13.5 [facility] Comment on above: Performed By: #### C BC #### [facility] [address] [address] [address] Geri Pradhan PLT 314 103/ul Normal 150-450 [facility] Comment on above: Performed By: #### C BC #### [facility] [address] [place] [address] Dr. Geri Pradhan RBC 4.37 106/ul Normal 4.20-5.40 [facility] Comment on above: Performed By: #### C BC #### [facility] [address] [address] [address] Geri Pradhan WBC 9.2 103/ul Normal 4.0-11.0 [facility] Comment on above: Performed By: #### C BC #### [facility] [address] [place] [address] Dr. Geri Pradhan PROF 14(COMP METB)on 023 Albumin [Mass/Vol] 2.7 g/dL Critically low 3.4-5.0 [facility] Comment on above: Performed By: #### T JUAN JOSE CMP #### [facility] [address] [place] [address] Dr. Geri Pradhan Albumin/Globulin [Mass ratio] 0.7 {ratio} Normal [facility] Comment on above: Performed By: #### Gerry INGRAM CMP #### [facility] [address] [place] [address] Dr. Geri Pradhan ALP [Catalytic activity/Vol] 65 U/L Normal 46-116 [facility] Comment on above: Performed By: #### Gerry INGRAM, CMP #### [facility] [address] [address] [address] Geri Pradhan ALT [Catalytic activity/Vol] 23 U/L Normal 14-59 [facility] Comment on above: Performed By: #### Gerry INGRAM, CMP #### [facility] [address] [address] [address] Geri Pradhan Anion gap [Moles/Vol] 2.0 mmol/L Normal [facility] Comment on above: Performed By: #### Gerry INGRAM, CMP #### [facility] [address] [address] [address] Geri Pradhan AST [Catalytic activity/Vol] 17 U/L Normal 15-37 [facility] Comment on above: Performed By: #### Gerry INGRAM, CMP #### [facility] [address] [place] [address] Dr. Geri Pradhan Bilirubin [Mass/Vol] 0.1 mg/dL Critically low 0.2-1.0 [facility] Comment on above: Performed By: #### Gerry INGRAM, CMP #### [facility] [address] [address] [address] Geri Pradhan Calcium [Mass/Vol] 9.0 mg/dL Normal 8.5-10.1 [facility] Comment on above: Performed By: #### Gerry INGRAM, CMP #### [facility] [address] [place] [address] Dr. Geri Pradhan Chloride [Moles/Vol] 99 mmol/L Normal 98-107 [facility] Comment on above: Performed By: #### Gerry INGRAM, CMP #### [facility] [address] [address] [address] Geri Pradhan CO2 [Moles/Vol] 45.3 mmol/L Critically high 21.0-32.0 [facility] Comment on above: Performed By: #### Gerry INGRAM, CMP #### [facility] [address] [place] [address] Dr. Geri Pradhan Creatinine [Mass/Vol] 0.50 mg/dL Critically low 0.55-1.02 [facility] Comment on above: Performed By: #### Gerry INGRAM, CMP #### [facility] [address] [address] [address] Geri Pradhan EGFR-AF TANZANIAN >60 Normal >=60 [facility] Comment on above: Performed By: #### Gerry INGRAM, CMP #### [facility] [address] [address] [address] Geri Pradhan EGFR-NON AF TANZANIAN >60 Normal >=60 [facility] Comment on above: Performed By: #### Gerry INGRAM, CMP #### [facility] [address] [address] [address] Geri Pradhan Globulin (S) [Mass/Vol] 3.7 g/dL Normal [facility] Comment on above: Performed By: #### Gerry INGRAM, CMP #### [facility] [address] [address] [address] Geri Pradhan Glucose [Mass/Vol] 180 mg/dL Critically high 74-106 [facility] Comment on above: Performed By: #### Gerry INGRAM, CMP #### [facility] [address] [address] [address] Geri Pradhan Potassium [Moles/Vol] 4.3 mmol/L Normal 3.5-5.1 [facility] Comment on above: Performed By: #### Gerry INGRAM, CMP #### [facility] [address] [address] [address] Geri Pradhan Protein [Mass/Vol] 6.4 g/dL Normal 6.4-8.2 [facility] Comment on above: Performed By: #### Gerry IGNRAM, CMP #### [facility] [address] [address] [address] Geri Pradhan Sodium [Moles/Vol] 142 mmol/L Normal 136-145 [facility] Comment on above: Performed By: #### Gerry INGRAM, CMP #### [facility] [address] [address] [address] Geri Pradhan Urea nitrogen [Mass/Vol] 13.0 mg/dL Normal 7.0-18.0 [facility] Comment on above: Performed By: #### T JUAN JOSE, CMP #### [facility] [address] [place] [address] Dr. Geri Pradhan Urea nitrogen/Creatinine [Mass ratio] 26.0 mg/mg Normal [facility] Comment on above: Performed By: #### T JUAN JOSE, CMP #### [facility] [address] [place] [address] Dr. Geri Pradhan THEOPHYLLINEon 09-05-2022 THEOPHYLLINE <2.0 Critically low 10.0-20.0 [facility] Comment on above: Performed By: #### T JUAN JOSE CMP #### [facility] [address] [place] [address] Dr. Geri Pradhan CBC AUTO DIFFon 09-04-2022 BASO # 0.0 103/ul Normal 0.0-0.1 [facility] Comment on above: Performed By: #### R SPLUS #### [facility] [address] [place] [address] Dr. Geri Pradhan Basophils/100 WBC (Bld) 0.1 % Critically low 0.2-2.0 [facility] Comment on above: Performed By: #### R SPLUS #### [facility] [address] [place] [address] Dr. Geri Pradhan EO # 0.0 103/ul Normal 0.0-0.7 [facility] Comment on above: Performed By: #### R SPLUS #### [facility] [address] [place] [address] Dr. Geri Pradhan Eosinophils/100 WBC (Bld) 0.0 % Critically low 0.9-7.0 [facility] Comment on above: Performed By: #### R SPLUS #### [facility] [address] [place] [address] Dr. Geri Pradhan Erythrocyte distribution width (RBC) [Ratio] 13.4 % Normal 11.0-15.0 [facility] Comment on above: Performed By: #### R SPLUS #### [facility] [address] [place] [address] Dr. Geri Pradhan Hematocrit (Bld) [Volume fraction] 42.8 % Normal 36.0-48.0 [facility] Comment on above: Performed By: #### R SPLUS #### [facility] [address] [place] [address] Dr. Geri Pradhan Hemoglobin (Bld) [Mass/Vol] 12.8 g/dL Normal 12.0-16.0 [facility] Comment on above: Performed By: #### R SPLUS #### [facility] [address] [place] [address] Dr. Geri Pradhan IG # 0.25 10e3/ul Critically high 0.00-0.03 [facility] Comment on above: Performed By: #### R SPLUS #### [facility] [address] [place] [address] Dr. Geri Pradhan IG % 2.0 % Critically high 0.0-0.5 [facility] Comment on above: Performed By: #### R SPLUS #### [facility] [address] [place] [address] Dr. Geri Pradhan LYMPH # 0.4 103/ul Critically low 1.2-3.8 [facility] Comment on above: Performed By: #### R SPLUS #### [facility] [address] [place] [address] Dr. Geri Pradhan Lymphocytes/100 WBC (Bld) 3.6 % Critically low 20.5-60.0 [facility] Comment on above: Performed By: #### R SPLUS #### [facility] [address] [place] [address] Dr. Geri Pradhan MANUAL DIFF REQ NO Normal [facility] Comment on above: Performed By: #### R SPLUS #### [facility] [address] [place] [address] Dr. Geri Pradhan MCH (RBC) [Entitic mass] 26.8 pg Normal 26.7-34.0 [facility] Comment on above: Performed By: #### R SPLUS #### [facility] [address] [place] [address] Dr. Geri Pradhan MCHC (RBC) [Mass/Vol] 29.9 g/dL Normal 29.9-35.2 [facility] Comment on above: Performed By: #### R SPLUS #### [facility] [address] [place] [address] Dr. Geri Pradhan MCV (RBC) [Entitic vol] 89.5 fL Normal 81.0-99.0 [facility] Comment on above: Performed By: #### R SPLUS #### [facility] [address] [place] [address] Dr. Geri Pradhan MONO # 0.2 103/ul Critically low 0.3-0.8 [facility] Comment on above: Performed By: #### R SPLUS #### [facility] [address] [place] [address] Dr. Geri Pradhan Monocytes/100 WBC (Bld) 1.9 % Normal 1.7-12.0 [facility] Comment on above: Performed By: #### R SPLUS #### [facility] [address] [place] [address] Dr. Geri Pradhan NEUT # 11.4 103/ul Critically high 1.4-6.5 [facility] Comment on above: Performed By: #### R SPLUS #### [facility] [address] [place] [address] Dr. Geri Pradhan Neutrophils/100 WBC (Bld) 92.4 % Critically high 43.0-75.0 [facility] Comment on above: Performed By: #### R SPLUS #### [facility] [address] [place] [address] Dr. Geri Pradhan Platelet mean volume (Bld) [Entitic vol] 8.9 fL Critically low 9.5-13.5 [facility] Comment on above: Performed By: #### R SPLUS #### [facility] [address] [place] [address] Dr. Geri Pradhan PLT 350 103/ul Normal 150-450 [facility] Comment on above: Performed By: #### R SPLUS #### [facility] [address] [place] [address] Dr. Geri Pradhan RBC 4.78 106/ul Normal 4.20-5.40 [facility] Comment on above: Performed By: #### R SPLUS #### [facility] [address] [place] [address] Dr. Geri Pradhan WBC 12.3 103/ul Critically high 4.0-11.0 [facility] Comment on above: Performed By: #### R SPLUS #### [facility] [address] [address] [address] Geri Pradhan POINT OF CARE GLUCOSEon 08-12 Glucose [Mass/Vol] 142 mg/dL Critically high 74-106 [facility] Comment on above: Performed By: #### P OCGLUC #### [facility] [address] [place] [address] Dr. Geri Pradhan Glucose [Mass/Vol] 198 mg/dL Critically high 74-106 [facility] Comment on above: Performed By: #### Gerry INGRAM CMP #### [facility] [address] [place] [address] Dr. Geri Pradhan Glucose [Mass/Vol] 147 mg/dL Critically high 74-106 [facility] Comment on above: Performed By: #### Gerry INGRAM CMP #### [facility] [address] [place] [address] Dr. Geri Pradhan PROF 14(COMP METB)on 023 Albumin [Mass/Vol] 2.9 g/dL Critically low 3.4-5.0 [facility] Comment on above: Performed By: #### Gerry INGRAM CMP #### [facility] [address] [place] [address] Dr. Geri Pradhan Albumin/Globulin [Mass ratio] 0.7 {ratio} Normal [facility] Comment on above: Performed By: #### Gerry INGRAM, CMP #### [facility] [address] [place] [address] Dr. Geri Pradhan ALP [Catalytic activity/Vol] 73 U/L Normal 46-116 [facility] Comment on above: Performed By: #### Gerry INGRAM, CMP #### [facility] [address] [address] [address] Geri Pradhan ALT [Catalytic activity/Vol] 24 U/L Normal 14-59 [facility] Comment on above: Performed By: #### Gerry INGRAM, CMP #### [facility] [address] [place] [address] Dr. Geri Pradhan Anion gap [Moles/Vol] 3.2 mmol/L Normal [facility] Comment on above: Performed By: #### Gerry INGRAM, CMP #### [facility] [address] [place] [address] Dr. Geri Pradhan AST [Catalytic activity/Vol] 17 U/L Normal 15-37 [facility] Comment on above: Performed By: #### Gerry INGRAM, CMP #### [facility] [address] [place] [address] Dr. Geri Pradhan Bilirubin [Mass/Vol] 0.1 mg/dL Critically low 0.2-1.0 [facility] Comment on above: Performed By: #### Gerry INGRAM, CMP #### [facility] [address] [place] [address] Dr. Geri Pradhan Calcium [Mass/Vol] 9.4 mg/dL Normal 8.5-10.1 [facility] Comment on above: Performed By: #### Gerry INGRAM, CMP #### [facility] [address] [place] [address] Dr. Geri Pradhan Chloride [Moles/Vol] 100 mmol/L Normal 98-107 [facility] Comment on above: Performed By: #### Gerry INGRAM, CMP #### [facility] [address] [place] [address] Dr. Geri Pradhan CO2 [Moles/Vol] 43.2 mmol/L Critically high 21.0-32.0 [facility] Comment on above: Performed By: #### Gerry INGRAM, CMP #### [facility] [address] [place] [address] Dr. Geri Pradhan Creatinine [Mass/Vol] 0.52 mg/dL Critically low 0.55-1.02 [facility] Comment on above: Performed By: #### Gerry INGRAM, CMP #### [facility] [address] [address] [address] Geri Pradhan EGFR-AF TANZANIAN >60 Normal >=60 [facility] Comment on above: Performed By: #### Gerry INGRAM, CMP #### [facility] [address] [address] [address] Geri Pradhan EGFR-NON AF TANZANIAN >60 Normal >=60 [facility] Comment on above: Performed By: #### Gerry INGRAM, CMP #### [facility] [address] [address] [address] Geri Pradhan Globulin (S) [Mass/Vol] 4.2 g/dL Normal [facility] Comment on above: Performed By: #### Gerry INGRAM, CMP #### [facility] [address] [address] [address] Geri Pradhan Glucose [Mass/Vol] 138 mg/dL Critically high 74-106 [facility] Comment on above: Performed By: #### Gerry INGRAM, CMP #### [facility] [address] [address] [address] Geri Pradhan Potassium [Moles/Vol] 4.4 mmol/L Normal 3.5-5.1 [facility] Comment on above: Performed By: #### Gerry INGRAM, CMP #### [facility] [address] [address] [address] Geri Pradhan Protein [Mass/Vol] 7.1 g/dL Normal 6.4-8.2 [facility] Comment on above: Performed By: #### Gerry INGRAM, CMP #### [facility] [address] [address] [address] Geri Pradhan Sodium [Moles/Vol] 142 mmol/L Normal 136-145 [facility] Comment on above: Performed By: #### Gerry INGRAM, CMP #### [facility] [address] [address] [address] Geri Pradhan Urea nitrogen [Mass/Vol] 15.0 mg/dL Normal 7.0-18.0 [facility] Comment on above: Performed By: #### Gerry INGRAM, CMP #### [facility] [address] [place] [address] Dr. Geri Pradhan Urea nitrogen/Creatinine [Mass ratio] 28.8 mg/mg Normal [facility] Comment on above: Performed By: #### T JUAN JOSE, CMP #### [facility] [address] [place] [address] Dr. Geri Pradhan RESPIRATORY PANEL PLUSon Adenovirus Not detected Normal NOT DETECTED The [facility] Comment on above: Performed By: #### R SPLUS #### [facility] [address] [place] [address] Dr. Geri Joe. Parapertusis Not detected Normal NOT DETECTED The [facility] Comment on above: Performed By: #### R SPLUS #### [facility] [address] [place] [address] Dr. Geri Joe. Pertussis Not detected Normal NOT DETECTED The [facility] Comment on above: Performed By: #### R SPLUS #### [facility] [address] [place] [address] Dr. Geri Pradhan Chlamydia Pneumoniae Not detected Normal NOT DETECTED The [facility] Comment on above: Performed By: #### R SPLUS #### [facility] [address] [place] [address] Dr. Geri Pradhan Coronavirus 229E Not detected Normal NOT DETECTED The [facility] Comment on above: Performed By: #### R SPLUS #### [facility] [address] [place] [address] Dr. Geri Pradhan Coronavirus HKU1 Not detected Normal NOT DETECTED The [facility] Comment on above: Performed By: #### R SPLUS #### [facility] [address] [place] [address] Dr. Geri Pradhan Coronavirus NL63 Not detected Normal NOT DETECTED The [facility] Comment on above: Performed By: #### R SPLUS #### [facility] [address] [place] [address] Dr. Geri Pradhan Coronavirus OC43 Not detected Normal NOT DETECTED The [facility] Comment on above: Performed By: #### R SPLUS #### [facility] [address] [address] [address] Geri Pradhan Influenza A H1 Not detected Normal NOT DETECTED The [facility] Comment on above: Performed By: #### R SPLUS #### [facility] [address] [address] [address] Geri Pradhan Influenza A H1 2009 Not detected Normal NOT DETECTED [facility] Comment on above: Performed By: #### R SPLUS #### [facility] [address] [address] [address] Geri Pradhan Influenza A H3 Not detected Normal NOT DETECTED The [facility] Comment on above: Performed By: #### R SPLUS #### [facility] [address] [place] [address] Dr. Geri Pradhan Influenza B Not detected Normal NOT DETECTED The [facility] Comment on above: Performed By: #### R SPLUS #### [facility] [address] [place] [address] Dr. Geri Pradhan Metapneumovirus Not detected Normal NOT DETECTED The [facility] Comment on above: Performed By: #### R SPLUS #### [facility] [address] [place] [address] Dr. Geri Pradhan Mycoplas. Pneumoniae Not detected Normal NOT DETECTED The [facility] Comment on above: Performed By: #### R SPLUS #### [facility] [address] [place] [address] Dr. Geri Pradhan Parainfluenza 1 Not detected Normal NOT DETECTED The [facility] Comment on above: Performed By: #### R SPLUS #### [facility] [address] [place] [address] Dr. Geri Pradhan Parainfluenza 2 Not detected Normal NOT DETECTED [facility] Comment on above: Performed By: #### R SPLUS #### [facility] [address] [place] [address] Dr. Geri Pradhan Parainfluenza 3 Detected Abnormal NOT DETECTED The [facility] Comment on above: Performed By: #### R SPLUS #### [facility] [address] [address] [address] Geri Pradhan Parainfluenza 4 Not detected Normal NOT DETECTED The [facility] Comment on above: Performed By: #### R SPLUS #### [facility] [address] [place] [address] Dr. Geri Pradhan Rhino/Enterovirus Not detected Normal NOT DETECTED [facility] Comment on above: Performed By: #### R SPLUS #### [facility] [address] [place] [address] Dr. Geri Pradhan RP2 Header 1 RESPIRATORY PANEL: VIRUSES Normal [facility] Comment on above: Performed By: #### R SPLUS #### [facility] [address] [place] [address] Dr. Geri Pradhan RP2 Header 2 RESPIRATORY PANEL: BACTERIA Normal [facility] Comment on above: Performed By: #### R SPLUS #### [facility] [address] [place] [address] Dr. Geri Pradhan RSV Not detected Normal NOT DETECTED The [facility] Comment on above: Performed By: #### R SPLUS #### [facility] [address] [place] [address] Dr. Geri Pradhan SARS-CoV-2 (COVID-19) RNA KRUNAL+probe Ql (Unsp spec) Not detected Normal NOT DETECTED [facility] Comment on above: Performed By: #### R SPLUS #### [facility] [address] [place] [address] Dr. Geri Pradhan THEOPHYLLINEon 09-04-2022 THEOPHYLLINE <2.0 Critically low 10.0-20.0 [facility] Comment on above: Performed By: #### T JUAN JOSE, CMP #### [facility] [address] [place] [address] Dr. Geri Pradhan CBC AUTO DIFFon 09-03-2022 BASO # 0.0 103/ul Normal 0.0-0.1 [facility] Comment on above: Performed By: #### P OCGLUC #### [facility] [address] [place] [address] Dr. Geri Pradhan Basophils/100 WBC (Bld) 0.1 % Critically low 0.2-2.0 [facility] Comment on above: Performed By: #### P OCGLUC #### [facility] [address] [place] [address] Dr. Geri Pradhan EO # 0.0 103/ul Normal 0.0-0.7 [facility] Comment on above: Performed By: #### P OCGLUC #### [facility] [address] [place] [address] Dr. Geri Pradhan Eosinophils/100 WBC (Bld) 0.0 % Critically low 0.9-7.0 [facility] Comment on above: Performed By: #### P OCGLUC #### [facility] [address] [place] [address] Dr. Geri Pradhan Erythrocyte distribution width (RBC) [Ratio] 13.0 % Normal 11.0-15.0 [facility] Comment on above: Performed By: #### P OCGLUC #### [facility] [address] [place] [address] Dr. Geri Pradhan Hematocrit (Bld) [Volume fraction] 42.1 % Normal 36.0-48.0 [facility] Comment on above: Performed By: #### P OCGLUC #### [facility] [address] [place] [address] Dr. Geri Pradhan Hemoglobin (Bld) [Mass/Vol] 12.3 g/dL Normal 12.0-16.0 [facility] Comment on above: Performed By: #### P OCGLUC #### [facility] [address] [place] [address] Dr. Geri Pradhan IG # 0.13 10e3/ul Critically high 0.00-0.03 [facility] Comment on above: Performed By: #### P OCGLUC #### [facility] [address] [place] [address] Dr. Geri Pradhan IG % 1.2 % Critically high 0.0-0.5 [facility] Comment on above: Performed By: #### P OCGLUC #### [facility] [address] [place] [address] Dr. Geri Pradhan LYMPH # 0.6 103/ul Critically low 1.2-3.8 [facility] Comment on above: Performed By: #### P OCGLUC #### [facility] [address] [place] [address] Dr. Geri Pradhan Lymphocytes/100 WBC (Bld) 6.0 % Critically low 20.5-60.0 [facility] Comment on above: Performed By: #### P OCGLUC #### [facility] [address] [place] [address] Dr. Geri Pradhan MANUAL DIFF REQ NO Normal [facility] Comment on above: Performed By: #### P OCGLUC #### [facility] [address] [place] [address] Dr. Geri Pradhan MCH (RBC) [Entitic mass] 26.0 pg Critically low 26.7-34.0 [facility] Comment on above: Performed By: #### P OCGLUC #### [facility] [address] [place] [address] Dr. Geri Pradhan MCHC (RBC) [Mass/Vol] 29.2 g/dL Critically low 29.9-35.2 [facility] Comment on above: Performed By: #### P OCGLUC #### [facility] [address] [place] [address] Dr. Geri Pradhan MCV (RBC) [Entitic vol] 89.0 fL Normal 81.0-99.0 [facility] Comment on above: Performed By: #### P OCGLUC #### [facility] [address] [place] [address] Dr. Geri Pradhan MONO # 0.2 103/ul Critically low 0.3-0.8 [facility] Comment on above: Performed By: #### P OCGLUC #### [facility] [address] [place] [address] Dr. Geri Pradhan Monocytes/100 WBC (Bld) 2.0 % Normal 1.7-12.0 [facility] Comment on above: Performed By: #### P OCGLUC #### [facility] [address] [place] [address] Dr. Geri Pradhan NEUT # 9.6 103/ul Critically high 1.4-6.5 [facility] Comment on above: Performed By: #### P OCGLUC #### [facility] [address] [address] [address] Geri Pradhan Neutrophils/100 WBC (Bld) 90.7 % Critically high 43.0-75.0 [facility] Comment on above: Performed By: #### P OCGLUC #### [facility] [address] [address] [address] Geri Pradhan Platelet mean volume (Bld) [Entitic vol] 9.1 fL Critically low 9.5-13.5 [facility] Comment on above: Performed By: #### P OCGLUC #### [facility] [address] [address] [address] Geri Pradhan PLT 302 103/ul Normal 150-450 [facility] Comment on above: Performed By: #### P OCGLUC #### [facility] [address] [address] [address] Geri Pradhan RBC 4.73 106/ul Normal 4.20-5.40 [facility] Comment on above: Performed By: #### P OCGLUC #### [facility] [address] [address] [address] Geri Pradhan WBC 10.6 103/ul Normal 4.0-11.0 [facility] Comment on above: Performed By: #### P OCGLUC #### [facility] [address] [address] [address] Geri Pradhan POINT OF CARE GLUCOSEon 08-12 Glucose [Mass/Vol] 130 mg/dL Critically high 74-106 [facility] Comment on above: Performed By: #### Gerry INGRAM CMP #### [facility] [address] [place] [address] Dr. Geri Pradhan Glucose [Mass/Vol] 217 mg/dL Critically high 74-106 [facility] Comment on above: Performed By: #### T JUAN JOSE CMP #### [facility] [address] [place] [address] Dr. Geri Pradhan Glucose [Mass/Vol] 327 mg/dL Critically high 74-106 [facility] Comment on above: Performed By: #### C VDTBH #### [facility] [address] [address] [address] Geri Pradhan Glucose [Mass/Vol] 146 mg/dL Critically high 74-106 [facility] Comment on above: Performed By: #### T JUAN JOSE, CMP #### [facility] [address] [address] [address] Geri Pradhan Glucose [Mass/Vol] 174 mg/dL Critically high 74-106 [facility] Comment on above: Performed By: #### T JUAN JOSE, CMP #### [facility] [address] [address] [address] Geri Pradhan PROF 14(COMP METB)on 023 Albumin [Mass/Vol] 2.9 g/dL Critically low 3.4-5.0 [facility] Comment on above: Performed By: #### P OCGLUC #### [facility] [address] [place] [address] Dr. Geri Pradhan Albumin/Globulin [Mass ratio] 0.7 {ratio} [facility] Comment on above: Performed By: #### P OCGLUC #### [facility] [address] [place] [address] Dr. Geri Pradhan ALP [Catalytic activity/Vol] 74 U/L Normal 46-116 [facility] Comment on above: Performed By: #### P OCGLUC #### [facility] [address] [place] [address] Dr. Geir Pradhan ALT [Catalytic activity/Vol] 21 U/L Normal 14-59 [facility] Comment on above: Performed By: #### P OCGLUC #### [facility] [address] [address] [address] Geri Pradhan Anion gap [Moles/Vol] 4.4 mmol/L Normal [facility] Comment on above: Performed By: #### P OCGLUC #### [facility] [address] [place] [address] Dr. Geri Pradhan AST [Catalytic activity/Vol] 17 U/L Normal 15-37 [facility] Comment on above: Performed By: #### P OCGLUC #### [facility] [address] [address] [address] Geri Pradhan Bilirubin [Mass/Vol] 0.2 mg/dL Normal 0.2-1.0 [facility] Comment on above: Performed By: #### P OCGLUC #### [facility] [address] [address] [address] Geri Pradhan Calcium [Mass/Vol] 9.4 mg/dL Normal 8.5-10.1 [facility] Comment on above: Performed By: #### P OCGLUC #### [facility] [address] [address] [address] Geri Pradhan Chloride [Moles/Vol] 99 mmol/L Normal 98-107 [facility] Comment on above: Performed By: #### P OCGLUC #### [facility] [address] [address] [address] Geri Pradhan CO2 [Moles/Vol] 42.8 mmol/L Critically high 21.0-32.0 [facility] Comment on above: Performed By: #### P OCGLUC #### [facility] [address] [address] [address] Geri Pradhan Creatinine [Mass/Vol] 0.55 mg/dL Normal 0.55-1.02 [facility] Comment on above: Performed By: #### P OCGLUC #### [facility] [address] [address] [address] Geri Pradhan EGFR-AF TANZANIAN >60 Normal >=60 [facility] Comment on above: Performed By: #### P OCGLUC #### [facility] [address] [place] [address] Dr. Geri Pradhan EGFR-NON AF TANZANIAN >60 Normal >=60 [facility] Comment on above: Performed By: #### P OCGLUC #### [facility] [address] [place] [address] Dr. Geri Pradhan Globulin (S) [Mass/Vol] 4.4 g/dL Normal [facility] Comment on above: Performed By: #### P OCGLUC #### [facility] [address] [address] [address] Geri Pradhan Glucose [Mass/Vol] 136 mg/dL Critically high 74-106 [facility] Comment on above: Performed By: #### P OCGLUC #### [facility] [address] [address] [address] Geri Pradhan Potassium [Moles/Vol] 4.2 mmol/L Normal 3.5-5.1 [facility] Comment on above: Performed By: #### P OCGLUC #### [facility] [address] [address] [address] Geri Pradhan Protein [Mass/Vol] 7.3 g/dL Normal 6.4-8.2 [facility] Comment on above: Performed By: #### P OCGLUC #### [facility] [address] [address] [address] Geri Pradhan Sodium [Moles/Vol] 142 mmol/L Normal 136-145 [facility] Comment on above: Performed By: #### P OCGLUC #### [facility] [address] [address] [address] Geri Pradhan Urea nitrogen [Mass/Vol] 14.0 mg/dL Normal 7.0-18.0 [facility] Comment on above: Performed By: #### P OCGLUC #### [facility] [address] [address] [address] Geri Pradhan Urea nitrogen/Creatinine [Mass ratio] 25.5 mg/mg Normal [facility] Comment on above: Performed By: #### P OCGLUC #### [facility] [address] [address] [address] Geri Pradhan THEOPHYLLINEon 09-03-2022 THEOPHYLLINE <2.0 Critically low 10.0-20.0 [facility] Comment on above: Performed By: #### P OCGLUC #### [facility] [address] [address] [address] Geri Pradhan MAGNESIUMon 09-02-2022 Magnesium [Mass/Vol] 2.3 mg/dL Normal 1.8-2.4 [facility] Comment on above: Performed By: #### Gerry INGRAM, CMP #### [facility] [address] [place] [address] Dr. Geri Pradhan POINT OF CARE GLUCOSEon 08-12 Glucose [Mass/Vol] 118 mg/dL Critically high 74-106 [facility] Comment on above: Performed By: #### R SPLUS #### [facility] [address] [address] [address] Geri Pradhan Glucose [Mass/Vol] 263 mg/dL Critically high 74-106 [facility] Comment on above: Performed By: #### R SPLUS #### [facility] [address] [place] [address] Dr. Geri Pradhan Glucose [Mass/Vol] 160 mg/dL Critically high 74-106 [facility] Comment on above: Performed By: #### P OCGLUC #### [facility] [address] [place] [address] Dr. Geri Pradhan PROF CHEM 8 (BAS METB)on Anion gap [Moles/Vol] 5.3 mmol/L Normal [facility] Comment on above: Performed By: #### Gerry INGRAM, CMP #### [facility] [address] [place] [address] Dr. Geri Pradhan Calcium [Mass/Vol] 9.5 mg/dL Normal 8.5-10.1 [facility] Comment on above: Performed By: #### Gerry INGRAM, CMP #### [facility] [address] [place] [address] Dr. Geri Pradhan Chloride [Moles/Vol] 94 mmol/L Critically low 98-107 [facility] Comment on above: Performed By: #### Gerry INGRAM, CMP #### [facility] [address] [place] [address] Dr. Geri Pradhan CO2 [Moles/Vol] 42.5 mmol/L Critically high 21.0-32.0 [facility] Comment on above: Performed By: #### Gerry INGRAM, CMP #### [facility] [address] [address] [address] Geri Pradhan Creatinine [Mass/Vol] 0.66 mg/dL Normal 0.55-1.02 [facility] Comment on above: Performed By: #### Gerry INGRAM, CMP #### [facility] [address] [address] [address] Geri Pradhan EGFR-AF TANZANIAN >60 Normal >=60 [facility] Comment on above: Performed By: #### Gerry INGRAM, CMP #### [facility] [address] [address] [address] Geri Pradhan EGFR-NON AF TANZANIAN >60 Normal >=60 [facility] Comment on above: Performed By: #### Gerry INGRAM, CMP #### [facility] [address] [address] [address] Geri Pradhan Glucose [Mass/Vol] 183 mg/dL Critically high 74-106 [facility] Comment on above: Performed By: #### Gerry INGRAM, CMP #### [facility] [address] [address] [address] Geri Pradhan Potassium [Moles/Vol] 3.8 mmol/L Normal 3.5-5.1 [facility] Comment on above: Performed By: #### Gerry INGRAM, CMP #### [facility] [address] [address] [address] Geri Pradhan Sodium [Moles/Vol] 138 mmol/L Normal 136-145 [facility] Comment on above: Performed By: #### Gerry INGRAM, CMP #### [facility] [address] [address] [address] Geri Pradhan Urea nitrogen [Mass/Vol] 10.0 mg/dL Normal 7.0-18.0 [facility] Comment on above: Performed By: #### Gerry INGRAM, CMP #### [facility] [address] [address] [address] Geri Pradhan Urea nitrogen/Creatinine [Mass ratio] 15.2 mg/mg Normal [facility] Comment on above: Performed By: #### Gerry INGRAM, CMP #### [facility] [address] [address] [address] Geri Pradhan THEOPHYLLINEon 09-02-2022 THEOPHYLLINE <2.0 Critically low 10.0-20.0 [facility] Comment on above: Performed By: #### R DUANEUS #### [facility] [address] [address] [address] Geri Pradhan BLOOD CULTURE ID PANELon A. baumannii Not detected Normal NOT DETECTED [facility] Comment on above: Performed By: #### Gerry INGRAM CMP #### [facility] [address] [address] [address] Geri Pradhan Bacteriodes fragilis Not detected Normal NOT DETECTED [facility] Comment on above: Performed By: #### Gerry INGRAM CMP #### [facility] [address] [place] [address] Dr. Geri BRINK CONTROLS PASSED Normal [facility] Comment on above: Performed By: #### Gerry INGRAM CMP #### [facility] [address] [address] [address] Geri GARCÍADBTHD BLOOD CULTURE BOTTLE INFORMATION Normal [facility] Comment on above: Performed By: #### Gerry INGRAM CMP #### [facility] [address] [place] [address] Dr. Geri Pradhan BCIDHD1 ANTIMICROBIAL RESISTANCE GENES Normal [facility] Comment on above: Performed By: #### Gerry INGRAM CMP #### [facility] [address] [place] [address] Dr. Geri Pradhan BCIDHD2 SEE BELOW Normal [facility] Comment on above: Result Comment: Note : Antimicrobial resitance can occur via multiple mechanisms. A Not Detected result for the [employer] antomicrobial resistance gene assays does not indicate antimicrobial susceptibility. Subculturing is required for species identification and susceptibility testing of isolates. Performed By: #### Gerry INGRAM CMP #### [facility] [address] [place] [address] Dr. Geri Pradhan BCIDHD3 Positive Normal [facility] Comment on above: Performed By: #### Gerry INGRAM CMP #### [facility] [address] [address] [address] Geri Pradhan BCIDHD4 Negative Normal The [facility] Comment on above: Performed By: #### T JUAN JOSE, CMP #### [facility] [address] [address] [address] Geri Pradhan BCIDHD5 YEAST Normal [facility] Comment on above: Performed By: #### Gerry INGRAM, CMP #### [facility] [address] [address] [address] Geri Pradhan Bottle Set: Set 1 Normal [facility] Comment on above: Performed By: #### Gerry INGRAM, CMP #### [facility] [address] [address] [address] Geri Pradhan Bottle: Aerobic Normal [facility] Comment on above: Performed By: #### Gerry INGRAM, CMP #### [facility] [address] [place] [address] Dr. Geri Pradhan C. neoformans/gattii Not detected Normal NOT DETECTED The [facility] Comment on above: Performed By: #### Gerry INGRAM, CMP #### [facility] [address] [place] [address] Dr. Geri Pradhan Milagros albicans Not detected Normal NOT DETECTED The [facility] Comment on above: Performed By: #### Gerry INGRAM, CMP #### [facility] [address] [place] [address] Dr. Geri Pradhan Milagros auris Not detected Normal NOT DETECTED The [facility] Comment on above: Performed By: #### Gerry INGRAM, CMP #### [facility] [address] [place] [address] Dr. Geri Pradhan Milagros glabrata Not detected Normal NOT DETECTED The [facility] Comment on above: Performed By: #### T JUAN JOSE, CMP #### [facility] [address] [address] [address] Geri Pradhan Milagros Krusei Not detected Normal NOT DETECTED The [facility] Comment on above: Performed By: #### T JUAN JOSE, CMP #### [facility] [address] [place] [address] Dr. Geri Pradhan Milagros Parapsilosis Not detected Normal NOT DETECTED The [facility] Comment on above: Performed By: #### T JUAN JOSE, CMP #### [facility] [address] [place] [address] Dr. Geri Pradhan Milagros Tropicalis Not detected Normal NOT DETECTED [facility] Comment on above: Performed By: #### T JUAN JOSE, CMP #### [facility] [address] [address] [address] Geri Pradhan CTX-M Resistant Gene Not Applicable Normal NOT DETECTE D [facility] Comment on above: Performed By: #### T JUAN JOSE, CMP #### [facility] [address] [address] [address] Geri Pradhan E. Cloacae complex Not detected Normal NOT DETECTED [facility] Comment on above: Performed By: #### T JUAN JOSE, CMP #### [facility] [address] [place] [address] Dr. Geri Pradhan E. faecalis Not detected Normal NOT DETECTED The [facility] Comment on above: Performed By: #### T JUAN JOSE, CMP #### [facility] [address] [place] [address] Dr. Geri Pradhan E. faecium Not detected Normal NOT DETECTED The [facility] Comment on above: Performed By: #### T JUAN JOSE, CMP #### [facility] [address] [place] [address] Dr. Geri Pradhan Enterobacteriaceae Not detected Normal NOT DETECTED [facility] Comment on above: Performed By: #### T JUAN JOSE, CMP #### [facility] [address] [place] [address] Dr. Geri Pradhan Escherichia coli Not detected Normal NOT DETECTED The [facility] Comment on above: Performed By: #### T JUAN JOSE, CMP #### [facility] [address] [place] [address] Dr. Geri Pradhan H. influenzae Not detected Normal NOT DETECTED The [facility] Comment on above: Performed By: #### T JUAN JOSE, CMP #### [facility] [address] [place] [address] Dr. Geri Pradhan IMP Resistant Gene Not Applicable Normal NOT DETECTED The [facility] Comment on above: Performed By: #### T JUAN JOSE, CMP #### [facility] [address] [place] [address] Dr. Geri Pradhan K. oxytoca Not detected Normal NOT DETECTED The [facility] Comment on above: Performed By: #### T JUAN JOSE, CMP #### [facility] [address] [address] [address] Geri Pradhan K. pneumoniae Not detected Normal NOT DETECTED The [facility] Comment on above: Performed By: #### T JUAN JOSE, CMP #### [facility] [address] [place] [address] Dr. Geri Pradhan Klebsiella aerogenes Not detected Normal NOT DETECTED The [facility] Comment on above: Performed By: #### T JUAN JOSE, CMP #### [facility] [address] [place] [address] Dr. Geri Pradhan KPC Resistant Gene Not Applicable Normal NOT DETECTED The [facility] Comment on above: Performed By: #### T JUAN JOSE, CMP #### [facility] [address] [place] [address] Dr. Geri Pradhan List. monocytogenes Not detected Normal NOT DETECTED [facility] Comment on above: Performed By: #### T JUAN JOSE, CMP #### [facility] [address] [place] [address] Dr. Geri Pradhan Mcr-1 Resistant Gene Not Applicable Normal NOT DETECTE D [facility] Comment on above: Performed By: #### T JUAN JOSE, CMP #### [facility] [address] [place] [address] Dr. Geri Pradhan mecA/C Detected Abnormal NOT DETECTED The [facility] Comment on above: Performed By: #### T JUAN JOSE, CMP #### [facility] [address] [place] [address] Dr. Geri Pradhan mecA/C MREJ Not Applicable Normal NOT DETECTED The [facility] Comment on above: Performed By: #### T JUAN JOSE, CMP #### [facility] [address] [place] [address] Dr. Geri Pradhan N. meningitidis Not detected Normal NOT DETECTED The [facility] Comment on above: Performed By: #### T JUAN JOSE, CMP #### [facility] [address] [address] [address] Geri Pradhan NDM Resistant Gene Not Applicable Normal NOT DETECTED The [facility] Comment on above: Performed By: #### T JUAN JOSE, CMP #### [facility] [address] [address] [address] Geri Pradhan Oxa-48-like Not Applicable Normal NOT DETECTED The [facility] Comment on above: Performed By: #### T JUAN JOSE, CMP #### [facility] [address] [address] [address] Geri Pradhan Proteus Not detected Normal NOT DETECTED The [facility] Comment on above: Performed By: #### T JUAN JOSE, CMP #### [facility] [address] [place] [address] Dr. Geri Pradhan Pseud. aeruginosa Not detected Normal NOT DETECTED The [facility] Comment on above: Performed By: #### T JUAN JOSE, CMP #### [facility] [address] [place] [address] Dr. Geri Pradhan S. maltophilia Not detected Normal NOT DETECTED The [facility] Comment on above: Performed By: #### T JUAN JOSE, CMP #### [facility] [address] [place] [address] Dr. Geri Pradhan Salmonella Not detected Normal NOT DETECTED The [facility] Comment on above: Performed By: #### T JUAN JOSE, CMP #### [facility] [address] [place] [address] Dr. Geri Pradhan Seratia marcescens Not detected Normal NOT DETECTED [facility] Comment on above: Performed By: #### T JUAN JOSE, CMP #### [facility] [address] [place] [address] Dr. Geri Pradhan Site: Right AC Normal The [facility] Comment on above: Performed By: #### T JUAN JOSE, CMP #### [facility] [address] [place] [address] Dr. Geri Pradhan Staph. aureus Not detected Normal NOT DETECTED The [facility] Comment on above: Performed By: #### T JUAN JOSE, CMP #### [facility] [address] [place] [address] Dr. Geri Pradhan Staph. epidermidis Detected Critically abnormal NOT DETECTED [facility] Comment on above: Performed By: #### T JUAN JOSE, CMP #### [facility] [address] [place] [address] Dr. Geri Pradhan Staph. lugdunensis Not detected Normal NOT DETECTED [facility] Comment on above: Performed By: #### T JUAN JOSE, CMP #### [facility] [address] [place] [address] Dr. Geri Pradhan Staphylococcus Detected Critically abnormal NOT DETECTED [facility] Comment on above: Performed By: #### T JUAN JOSE, CMP #### [facility] [address] [place] [address] Dr. Geri Pradhan Strep. agalactiae Not detected Normal NOT DETECTED The [facility] Comment on above: Performed By: #### T JUAN JOSE, CMP #### [facility] [address] [place] [address] Dr. Geri Pradhan Strep. pneumoniae Not detected Normal NOT DETECTED [facility] Comment on above: Performed By: #### T JUAN JOSE, CMP #### [facility] [address] [place] [address] Dr. Geri Pradhan Strep. pyogenes Not detected Normal NOT DETECTED The [facility] Comment on above: Performed By: #### T JUAN JOSE, CMP #### [facility] [address] [place] [address] Dr. Geri Pradhan Streptococcus Not detected Normal NOT DETECTED The [facility] Comment on above: Performed By: #### T JUAN JOSE, CMP #### [facility] [address] [place] [address] Dr. Geri Pradhan Amrit/B Resist. Gene Not Applicable Normal NOT DETECTED [facility] Comment on above: Performed By: #### T JUAN JOSE, CMP #### [facility] [address] [place] [address] Dr. Geri Pradhan VIM Resistant Gene Not Applicable Normal NOT DETECTED [facility] Comment on above: Performed By: #### T JUAN JOSE, CMP #### [facility] [address] [place] [address] Dr. Geri Prad[facility] 02 MODE NASAL CANNULA [facility] Comment on above: Performed By: #### R SPLUS #### [facility] [address] [place] [address] Dr. Geri Pradhan ALLENS TEST Positive [facility] Comment on above: Performed By: #### R SPLUS #### [facility] [address] [address] [address] Geri Pradhan Base excess Calc (Bld) [Moles/Vol] 22.8 mmol/L Critically high -2.0-2.0 [facility] Comment on above: Performed By: #### R SPLUS #### [facility] [address] [place] [address] Dr. Geri Pradhan BIPAP PRESSURE [facility] Comment on above: Performed By: #### R SPLUS #### [facility] [address] [place] [address] Dr. Geri Pradhan CPAP [facility] Comment on above: Performed By: #### R SPLUS #### [facility] [address] [address] [address] Geri Pradhan FIO2 [facility] Comment on above: Performed By: #### R SPLUS #### [facility] [address] [place] [address] Dr. Geri Pradhan HCO3 (Bld) [Moles/Vol] 47.1 mmol/L Critically high 22.0-26 .0 [facility] Comment on above: Performed By: #### R SPLUS #### [facility] [address] [place] [address] Dr. Geri Pradhan LPM 2.5 [facility] Comment on above: Performed By: #### R SPLUS #### [facility] [address] [place] [address] Dr. Geri Pradhan MINUTE VOLUME Normal [facility] Comment on above: Performed By: #### R SPLUS #### [facility] [address] [address] [address] Geri Pradhan Oxygen (Bld) [Partial pressure] 95.8 mm[Hg] Normal 80.0-100.0 [facility] Comment on above: Performed By: #### R SPLUS #### [facility] [address] [place] [address] Dr. Geri Pradhan Oxygen saturation in Blood 98.0 % Normal 95.0-100.0 [facility] Comment on above: Performed By: #### R SPLUS #### [facility] [address] [place] [address] Dr. Geri Pradhan PCO2 71.5 mmHg Critically high 35.0-45.0 [facility] Comment on above: Performed By: #### R SPLUS #### [facility] [address] [place] [address] Dr. Geri Pradhan [facility] Comment on above: Performed By: #### R SPLUS #### [facility] [address] [place] [address] Dr. Geri Pradhan pH (Bld) 7.428 [pH] Normal 7.350-7.450 [facility] Comment on above: Performed By: #### R SPLUS #### [facility] [address] [place] [address] Dr. Geri Pradhan PIP [facility] Comment on above: Performed By: #### R SPLUS #### [facility] [address] [place] [address] Dr. Geri Pradhan PS [facility] Comment on above: Performed By: #### R SPLUS #### [facility] [address] [address] [address] Geri Pradhan PUNCTURE SITE RR [facility] Comment on above: Performed By: #### R SPLUS #### [facility] [address] [place] [address] Dr. Geri Pradhan RATE [facility] Comment on above: Performed By: #### R SPLUS #### [facility] [address] [address] [address] Geri Pradhan VENT MODE Normal [facility] Comment on above: Performed By: #### R SPLUS #### [facility] [address] [place] [address] Dr. Geri Pradhan [facility] Comment on above: Performed By: #### R SPLUS #### [facility] [address] [place] [address] Dr. Geri Pradhan BNPon 09-01-2022 Natriuretic peptide B (Bld) [Mass/Vol] 143.0 pg/mL Normal <=900.0 [facility] Comment on above: Performed By: #### R SPLUS #### [facility] [address] [place] [address] Dr. Geri Pradhan CARDIAC BRAYAN ADMITon 023 CK [Catalytic activity/Vol] 21 U/L Critically low 26-192 [facility] Comment on above: Performed By: #### R SPLUS #### [facility] [address] [place] [address] Dr. Geri Pradhan CK.MB [Mass/Vol] 0.78 ng/mL Normal <=3.60 [facility] Comment on above: Performed By: #### R SPLUS #### [facility] [address] [place] [address] Dr. Geri Pradhan HSTROP 6.9 pg/mL Normal 4.0-51.3 [facility] Comment on above: Result Comment: CUT- OFF POINTS HAVE BEEN ESTABLISHED BASED ON THE FOURTH UNIVERSAL DEFINITIONS OF MYOCARDIAL INFARCTION. THE UPPER REFERENCE LIMIT (URL) OF TROPONIN, DEFINED THE 99TH PERCENTILE OF cTnI DISTRIBUTION IN A REFERENCE POPULATION, HAS BEEN CONFIRMED THE DECISION THRESHOLD FOR DE DIAGNOSIS. Performed By: #### R SPLUS #### [facility] [address] [place] [address] Dr. Geri Pradhan VIN 20 ng/mL Normal 9-82 [facility] Comment on above: Performed By: #### R SPLUS #### [facility] [address] [place] [address] Dr. Geri Pradhan CBC AUTO DIFFon 09-01-2022 BASO # 0.0 103/ul Normal 0.0-0.1 [facility] Comment on above: Performed By: #### C BC #### [facility] [address] [place] [address] Dr. Geri Pradhan Basophils/100 WBC (Bld) 0.2 % Normal 0.2-2.0 [facility] Comment on above: Performed By: #### C BC #### [facility] [address] [place] [address] Dr. Geri Pradhan EO # 0.1 103/ul Normal 0.0-0.7 [facility] Comment on above: Performed By: #### C BC #### [facility] [address] [place] [address] Dr. Geri Pradhan Eosinophils/100 WBC (Bld) 1.5 % Normal 0.9-7.0 [facility] Comment on above: Performed By: #### C BC #### [facility] [address] [place] [address] Dr. Geri Pradhan Erythrocyte distribution width (RBC) [Ratio] 12.8 % Normal 11.0-15.0 [facility] Comment on above: Performed By: #### C BC #### [facility] [address] [place] [address] Dr. Geri Pradhan Hematocrit (Bld) [Volume fraction] 41.8 % Normal 36.0-48.0 [facility] Comment on above: Performed By: #### C BC #### [facility] [address] [place] [address] Dr. Geri Pradhan Hemoglobin (Bld) [Mass/Vol] 13.1 g/dL Normal 12.0-16.0 [facility] Comment on above: Performed By: #### C BC #### [facility] [address] [place] [address] Dr. Geri Pradhan IG # 0.05 10e3/ul Critically high 0.00-0.03 [facility] Comment on above: Performed By: #### C BC #### [facility] [address] [place] [address] Dr. Geri Pradhan IG % 0.5 % Normal 0.0-0.5 [facility] Comment on above: Performed By: #### C BC #### [facility] [address] [place] [address] Dr. Geri Pradhan LYMPH # 2.4 103/ul Normal 1.2-3.8 [facility] Comment on above: Performed By: #### C BC #### [facility] [address] [place] [address] Dr. Geri Pradhan Lymphocytes/100 WBC (Bld) 24.9 % Normal 20.5-60.0 [facility] Comment on above: Performed By: #### C BC #### [facility] [address] [place] [address] Dr. Geri Pradhan MANUAL DIFF REQ NO Normal [facility] Comment on above: Performed By: #### C BC #### [facility] [address] [place] [address] Dr. Geri Pradhan MCH (RBC) [Entitic mass] 27.2 pg Normal 26.7-34.0 [facility] Comment on above: Performed By: #### C BC #### [facility] [address] [place] [address] Dr. Geri Pradhan MCHC (RBC) [Mass/Vol] 31.3 g/dL Normal 29.9-35.2 [facility] Comment on above: Performed By: #### C BC #### [facility] [address] [place] [address] Dr. Geri Pradhan MCV (RBC) [Entitic vol] 86.7 fL Normal 81.0-99.0 [facility] Comment on above: Performed By: #### C BC #### [facility] [address] [place] [address] Dr. Geri Pradhan MONO # 0.9 103/ul Critically high 0.3-0.8 [facility] Comment on above: Performed By: #### C BC #### [facility] [address] [place] [address] Dr. Geri Pradhan Monocytes/100 WBC (Bld) 8.9 % Normal 1.7-12.0 [facility] Comment on above: Performed By: #### C BC #### [facility] [address] [address] [address] Geri Pradhan NEUT # 6.1 103/ul Normal 1.4-6.5 [facility] Comment on above: Performed By: #### C BC #### [facility] [address] [place] [address] Dr. Geri Pradhan Neutrophils/100 WBC (Bld) 64.0 % Normal 43.0-75.0 [facility] Comment on above: Performed By: #### C BC #### [facility] [address] [place] [address] Dr. Geri Pradhan Platelet mean volume (Bld) [Entitic vol] 9.2 fL Critically low 9.5-13.5 [facility] Comment on above: Performed By: #### C BC #### [facility] [address] [place] [address] Dr. Geri Pradhan PLT 349 103/ul Normal 150-450 [facility] Comment on above: Performed By: #### C BC #### [facility] [address] [place] [address] Dr. Geri Pradhan RBC 4.82 106/ul Normal 4.20-5.40 [facility] Comment on above: Performed By: #### C BC #### [facility] [address] [place] [address] Dr. Geri Pradhan WBC 9.5 103/ul Normal 4.0-11.0 [facility] Comment on above: Performed By: #### C BC #### [facility] [address] [place] [address] Dr. Geri Pradhan CULTURE BLOODon 09-01-2022 Microscopic examination of blood, culture Culture Observations: NO GROWTH AT 5 DAYS. Normal [facility] Comment on above: Performed By: #### P OCGLUC #### [facility] [address] [place] [address] Dr. Geri Pradhan CULTURE URINEon 09-01-2022 CULTURE URINE Culture Observations : EDUARDO TO FOLLOW. Isolate 1 Pseudomonas aeruginosa 10,000 cfu/mL of Normal [facility] Comment on above: Performed By: #### P OCGLUC #### [facility] [address] [address] [address] Geri MARQUEZ URINE PROFILEon 3 Bilirubin Ql (U) Negative Normal NEGATIVE [facility] Comment on above: Performed By: #### P OCGLUC #### [facility] [address] [place] [address] Dr. Geri Pradhan Clarity (U) CLEAR Normal CLEAR [facility] Comment on above: Performed By: #### P OCGLUC #### [facility] [address] [place] [address] Dr. Geri Pradhan Color (U) LT. YELLOW Normal YELLOW [facility] Comment on above: Performed By: #### P OCGLUC #### [facility] [address] [place] [address] Dr. Geri HUNT A micrscopic examination will be performed if indicated. Normal [facility] Comment on above: Performed By: #### P OCGLUC #### [facility] [address] [place] [address] Dr. Geri Pradhan Glucose Ql (U) Negative Normal NEGATIVE [facility] Comment on above: Performed By: #### P OCGLUC #### [facility] [address] [place] [address] Dr. Geri Pradhan Hemoglobin Ql (U) TRACE-INTACT Abnormal NEGATIVE [facility] Comment on above: Performed By: #### P OCGLUC #### [facility] [address] [place] [address] Dr. Geri Pradhan Ketones Ql (U) Negative Normal NEGATIVE [facility] Comment on above: Performed By: #### P OCGLUC #### [facility] [address] [place] [address] Dr. Geri Pradhan LEUKOCYTES MODERATE Abnormal NEGATIVE [facility] Comment on above: Performed By: #### P OCGLUC #### [facility] [address] [place] [address] Dr. Geri Pradhan Nitrite Ql (U) Negative Normal NEGATIVE [facility] Comment on above: Performed By: #### P OCGLUC #### [facility] [address] [place] [address] Dr. Geri Pradhan pH (U) 6.5 [pH] Normal 5-9 [facility] Comment on above: Performed By: #### P OCGLUC #### [facility] [address] [address] [address] Geri Pradhan SPEC GRAVITY 1.010 Normal 1.005-<=1.02 5 [facility] Comment on above: Performed By: #### P OCGLUC #### [facility] [address] [address] [address] Geri Pradhan UA PROTEIN Negative Normal NEGATIVE/ TRACE [facility] Comment on above: Performed By: #### P OCGLUC #### [facility] [address] [place] [address] Dr. Geri Pradhan UR MICRO IND INDICATED Normal [facility] Comment on above: Performed By: #### P OCGLUC #### [facility] [address] [place] [address] Dr. Geri Pradhan Urobilinogen Qn (U) 0.2 {Lelia'U}/dL Normal 0.2 - 1. 0 [facility] Comment on above: Performed By: #### P OCGLUC #### [facility] [address] [place] [address] Dr. Geri Pradhan LACTATE/LACTIC ACIDon 2022 Lactate [Moles/Vol] 0.7 mmol/L Normal 0.4-2.0 [facility] Comment on above: Performed By: #### T JUAN JOSE, CMP #### [facility] [address] [place] [address] Dr. Geri Pradhan PROF 14(COMP METB)on 023 Albumin [Mass/Vol] 3.3 g/dL Critically low 3.4-5.0 [facility] Comment on above: Performed By: #### P OCGLUC #### [facility] [address] [place] [address] Dr. Geri Pradhan Albumin/Globulin [Mass ratio] 0.7 {ratio} Normal [facility] Comment on above: Performed By: #### P OCGLUC #### [facility] [address] [address] [address] Geri Pradhan ALP [Catalytic activity/Vol] 81 U/L Normal 46-116 [facility] Comment on above: Performed By: #### P OCGLUC #### [facility] [address] [address] [address] Geri Pradhan ALT [Catalytic activity/Vol] 19 U/L Normal 14-59 [facility] Comment on above: Performed By: #### P OCGLUC #### [facility] [address] [address] [address] Geri Pradhan Anion gap [Moles/Vol] 3.1 mmol/L Normal [facility] Comment on above: Performed By: #### P OCGLUC #### [facility] [address] [address] [address] Geri Pradhan AST [Catalytic activity/Vol] 16 U/L Normal 15-37 [facility] Comment on above: Performed By: #### P OCGLUC #### [facility] [address] [address] [address] Geri Pradhan Bilirubin [Mass/Vol] 0.2 mg/dL Normal 0.2-1.0 [facility] Comment on above: Performed By: #### P OCGLUC #### [facility] [address] [address] [address] Geri Pradhan Calcium [Mass/Vol] 9.8 mg/dL Normal 8.5-10.1 [facility] Comment on above: Performed By: #### P OCGLUC #### [facility] [address] [address] [address] Geri Pradhan Chloride [Moles/Vol] 93 mmol/L Critically low 98-107 [facility] Comment on above: Performed By: #### P OCGLUC #### [facility] [address] [address] [address] Geri Pradhan CO2 [Moles/Vol] 45.3 mmol/L Critically high 21.0-32.0 [facility] Comment on above: Performed By: #### P OCGLUC #### [facility] [address] [address] [address] Geri Pradhan Creatinine [Mass/Vol] 0.51 mg/dL Critically low 0.55-1.02 [facility] Comment on above: Performed By: #### P OCGLUC #### [facility] [address] [address] [address] Geri Pradhan EGFR-AF TANZANIAN >60 Normal >=60 [facility] Comment on above: Performed By: #### P OCGLUC #### [facility] [address] [address] [address] Geri Pradhan EGFR-NON AF TANZANIAN >60 Normal >=60 [facility] Comment on above: Performed By: #### P OCGLUC #### [facility] [address] [address] [address] Geri Pradhan Globulin (S) [Mass/Vol] 4.8 g/dL Normal [facility] Comment on above: Performed By: #### P OCGLUC #### [facility] [address] [address] [address] Geri Pradhan Glucose [Mass/Vol] 98 mg/dL Normal 74-106 [facility] Comment on above: Performed By: #### P OCGLUC #### [facility] [address] [address] [address] Geri Pradhan Potassium [Moles/Vol] 3.4 mmol/L Critically low 3.5-5.1 [facility] Comment on above: Performed By: #### P OCGLUC #### [facility] [address] [address] [address] Geri Pradhan Protein [Mass/Vol] 8.1 g/dL Normal 6.4-8.2 [facility] Comment on above: Performed By: #### P OCGLUC #### [facility] [address] [address] [address] Geri Pradhan Sodium [Moles/Vol] 138 mmol/L Normal 136-145 [facility] Comment on above: Performed By: #### P OCGLUC #### [facility] [address] [place] [address] Dr. Geri Pradhan Urea nitrogen [Mass/Vol] 11.0 mg/dL Normal 7.0-18.0 [facility] Comment on above: Performed By: #### P OCGLUC #### [facility] [address] [place] [address] Dr. Geri Pradhan Urea nitrogen/Creatinine [Mass ratio] 21.6 mg/mg Normal [facility] Comment on above: Performed By: #### P OCGLUC #### [facility] [address] [place] [address] Dr. Geri Pradhan PROTIMEon 09-01-2022 INR Coag (PPP) [Relative time] 0.96 {INR} Normal [facility] Comment on above: Performed By: #### T JUAN JOSE CMP #### [facility] [address] [place] [address] Dr. Geri Pradhan INR GUIDELINES SEE BELOW Normal [facility] Comment on above: Result Comment: KAROL RED INR: 2.0 - 3.0 CONDITIONS NOT LISTED BELOW 2.5 - 3.5 FOR PROSTHETIC HEART VALVE REPLACEMENT 2.5 - 3.5 RECURRENT THROMBOSIS Performed By: #### Gerry INGRAM CMP #### [facility] [address] [place] [address] Dr. Geri Pradhan PT Coag (PPP) [Time] 10.2 s Normal 9.0-11.6 [facility] Comment on above: Performed By: #### Gerry INGRAM CMP #### [facility] [address] [place] [address] Dr. Geri Pradhan PTTon 09-01-2022 aPTT Coag (Bld) [Time] 25.5 s Normal 22.3-36.2 [facility] Comment on above: Performed By: #### Gerry INGRAM, CMP #### [facility] [address] [place] [address] Dr. Geri Pradhan URINE MICROSCOPIC ONLYon BACTERIA NONE SEEN Normal NONE SEEN The [facility] Comment on above: Performed By: #### P OCGLUC #### [facility] [address] [place] [address] Dr. Geri Pradhan Bacteria identified Cx Nom (U) INDICATED Normal [facility] Comment on above: Performed By: #### P OCGLUC #### [facility] [address] [place] [address] Dr. Geri Pradhan CAST NONE SEEN Normal NONE SEEN [facility] Comment on above: Performed By: #### P OCGLUC #### [facility] [address] [place] [address] Dr. Geri Pradhan Crystals LM Nom (Urine sed) NONE SEEN Normal NONE SEEN The [facility] Comment on above: Performed By: #### P OCGLUC #### [facility] [address] [place] [address] Dr. Geri Pradhan Epithelial cells LM Ql (Urine sed) FEW Abnormal NONE SEEN /RARE [facility] Comment on above: Performed By: #### P OCGLUC #### [facility] [address] [place] [address] Dr. Geri Pradhan MUCOUS NONE SEEN Normal NONE SEEN The [facility] Comment on above: Performed By: #### P OCGLUC #### [facility] [address] [place] [address] Dr. Geri Pradhan RBC 0-2 Normal 0-2 [facility] Comment on above: Performed By: #### P OCGLUC #### [facility] [address] [place] [address] Dr. Geri Pradhan WBC 10-20 Abnormal NONE SEEN [facility] Comment on above: Performed By: #### P OCGLUC #### [facility] [address] [place] [address] Dr. Geri Pradhan XR CHEST 1 Von [...] EAMON ANDREWS Date: 2022-09-01 20:18 Normal [facility] CNOVon 06-02-2022 CNOV Office Visit (RADTSA ) PHOEBE GUERRERO ([id number]) 1960 F Date Time Provider Department 06/02/22 [...] COPD, who is diagnosed with Stage IA3, [id number], non-small cell lung cancer arising from a [...] Aspergillus. These results were discussed with her furniture salesperson Dr. Cross and the patient was referred [...] oxygen via nasal cannula at 2 L [id number]. She notes that her cough is improved [...] COPD, who is diagnosed with Stage IA3, [id number], non-small cell lung cancer arising from a [...] Guerrero i (more content not included)... Normal [facility] ASPERGILLUS GALACTOMANNAN AN TIGEN DETECTon 05-28-2022 Aspergillus Ag, BAL/Serum 0.07 Index Normal 0.00-0.49 [facility] Comment on above: Result Comment: Perf ormed at: BN Performed By: #### Gerry INGRAM CMP #### [facility] [address] [place] [address] Dr. Geri Pradhan Test Information . Normal [facility] Comment on above: Result Comment: Perf ormed at: TG Performed By: #### Gerry INGRAM CMP #### [facility] [address] [place] [address] Dr. Geri Pradhan ASPERGILLUS AB, QUANTITATIVE DIDon 05-27-2022 Aspergillus flavus Negative Normal Neg:<1:1 [facility] Comment on above: Performed By: #### Gerry INGRAM, CMP #### [facility] [address] [place] [address] Dr. Geri Pradhan Aspergillus fumigatus Negative Normal Neg:<1:1 [facility] Comment on above: Performed By: #### Gerry INGRAM, CMP #### [facility] [address] [place] [address] Dr. Geri Pradhan Aspergillus niger Negative Normal Neg:<1:1 [facility] Comment on above: Performed By: #### Gerry INGRAM, CMP #### [facility] [address] [place] [address] Dr. Geri Pradhan CULTURE SPUTUMon 05-23-2022 CULTURE SPUTUM Culture Observations : NORMAL RESPIRATORY NAVA. Normal [facility] Comment on above: Performed By: #### P OCGLUC #### [facility] [address] [address] [address] Geri Pradhan SPUTUM GRAM STAINon 05-23-19 COMMENTS Normal [facility] Comment on above: Performed By: #### Gerry INGRAM CMP #### [facility] [address] [address] [address] Geri Pradhan DIPHTHEROIDS Normal [facility] Comment on above: Performed By: #### Gerry INGRAM, CMP #### [facility] [address] [address] [address] Geri Pradhan EPITHELIALS <25 Normal [facility] Comment on above: Performed By: #### Gerry INGRAM CMP #### [facility] [address] [address] [address] Geri Pradhan FUNGAL ELEMENTS Normal [facility] Comment on above: Performed By: #### Gerry INGRAM CMP #### [facility] [address] [address] [address] Geri SY NEG BACILLI [facility] Comment on above: Performed By: #### Gerry INGRAM CMP #### [facility] [address] [address] [address] Geri SY NEG DIPPLOCOCCI [facility] Comment on above: Performed By: #### Gerry INGRAM CMP #### [facility] [address] [address] [address] Geri SY POS BACILLI [facility] Comment on above: Performed By: #### Gerry INGRAM, CMP #### [facility] [address] [address] [address] Geri Pradhan GRAM POSITIVE COCCI MODERATE Normal [facility] Comment on above: Performed By: #### Gerry INGRAM, CMP #### [facility] [address] [address] [address] Geri Pradhan WBC (Bld) [#/Vol] 10*3/uL Normal [facility] Comment on above: Performed By: #### Gerry INGRAM CMP #### [facility] [address] [place], [place] [address] Dr. Geri Mayer 05-14-2022 CNPN Telephone (RADTSA) CARA GUERRERO ([id number]) 1960 F Date Time Provider Department 05/14/22 [...] yesterday showing fungal/aspergillus infection. Spoke with her furniture salesperson, Dr. Cross, today and agreed to refer [...] sheet in your mailbox. Thanks, Alex Lomax [facility] 05/14/2022 2:00 PM Signed Records faxed to Dr. Conde. Requested images be pushed to [facility]. Abdi Israel MD 05/14/2022 10:40 PM Signed [...] Order(s):CONSULT TO INFECTIOUS DISEASES [9016] Order #: [id number]: 1 FUTURE Prescriptions as of 05/15/2022 - [...] Encounter Status:Closed by JULISA PRESSLEY on 05/15/22 [facility] ANES POSTPROC EVALon 023 ANES POSTPROC EVAL HNO ID: [id number] Author: Lora Ruby MD Service: ? Author Type: Anesthesiologist Type: Anesthesia Postprocedure Evaluation Filed: 05/09/2022 1:16 PM Note Text: POST ANESTHESIA EVALUATION NOTE : 1960 Procedure Summary Date: 05/09/22 Room / Location: [facility] B02 / [facility] H23 Anesthesia Start: 08 [...] May 09, 2022 TIME: 1:16 PM CSN: [id number] Normal [facility] ANES PRE-OPon 05-09-2022 ANES PRE-OP HNO ID: [id number] Author: Lora Ruby MD Service: ? Author Type: Anesthesiologist Type: Anesthesia Preprocedure Evaluation Filed: 05/09/2022 7:49 AM Note Text: ANESTHESIOLOGY DAY OF SURGERY NOTE : 1960 Procedure Information Date/Time: 05/09/22729 Procedure: BRONCHOSCOPY FLEXIBLE ADULT (Bronchus) - Tier 2- ION Robot Navigation Bronchoscopy CT scheduled for 05/06 COVID Neg 05/06 @ [facility] [phone] Location: [facility] B-02 / [facility] LAB H23 Surgeons: Yasmin Sorensen [...] and consent discussed: yes. Patient / Responsible Republican agrees to proceed: yes Patient / Surrogate agrees to blood products: Yes Significant changes in the patient condition since the History and Physical, not otherwise documented in primary service progress note: no. Vitals Value Taken Time BP 150/76 05/09/22702 Pulse 106 05/09/22702 Resp 22 05/09/22702 Temp 36 ?C (96.8 ?F) 05/09/22702 SpO2 98 % 05/09/22702 Facility-Administered Medications as of 05/09/2022 Medication Dose [...] May 09, 2022 TIME: 7:48 AM CSN: [id number] Normal [facility] BRONCHOSCOPYon 05-09-2022 [facility] CYTOLOGY NON-GYNon 3 ADEQUACY INTERPRETATION Normal [facility] Comment on above: Order Comment: Speci men Type: SPECIMEN OBTAINED BY ASPIRATIONOrdering Facility: [facility] Address: [address] [place] [address] Result Comment: A: # 1-5 Non-diagnostic #6,7 Acute inflammation and macrophages B: #1,2 Non-diagnostic Dr. Arina Layne/Dr. Arian Blancas/Rodney Ly Each letter in the above intra-procedural assessment refers to a unique site. The specific site is indicated in the final diagnosis portion of the report. Each number in this assessment references a discrete evaluation episode. Intra-procedural assessment performed at [facility], [facility] [place] [address] Performed By: #### C YTONON ####[facility] [id number] [place] [address] [place] CASE REPORT Normal [facility] Comment on above: Order Comment: Speci men Type: SPECIMEN OBTAINED BY ASPIRATIONOrdering Facility: [facility] Address: [address] [place] [address] Result Comment: [facility] Cytology Report Case: [id number] Authorizing Provider: Yasmin Sorensen MD Collected: 05/09/2022 08:48 AM Ordering Location: Admitting Received: 05/09/2022 10:24 AM Pathologist: Anthony Layne MD Specimens: A) - TRANSBRONCHIAL FINE-NEEDLE ASPIRATION, LEFT UPPER LOBE, LEFT UPPER LOBE NODULE B) - BRONCHIAL LEFT UPPER LOBE BRUSH, LEFT UPPER LOBE NODULE TRIPLE NEEDLE BRUSH Performed By: #### C YTONON ####[facility] [id number] [address] CLINICAL HISTORY Lung Cancer 2019. Normal [facility] Comment on above: Order Comment: Speci men Type: SPECIMEN OBTAINED BY ASPIRATIONOrdering Facility: [facility] Address: [address] [place] [address] Performed By: #### C YTONON ####[facility] [id number] [address] DIAGNOSIS COMMENT Normal [place] Comment on above: Order Comment: Speci men Type: SPECIMEN OBTAINED BY ASPIRATIONOrdering Facility: [facility] Address: [address] [place] [address] Result Comment: A an d B. The [...] Refer also to the concurrent biopsy specimen [id number]. The findings were conveyed to Dr. Sorensen via an email on 05/13/2022. by Dr. Layne Performed By: #### C YTONON ####[facility] [id number] [address] FINAL DIAGNOSIS Normal [facility] Comment on above: Order Comment: Speci men Type: SPECIMEN OBTAINED BY ASPIRATIONOrdering Facility: [facility] Address: [address] [place] [address] Result Comment: A - TRANSBRONCHIAL FINE NEEDLE [...] Alcohol Fixed Performed By: #### C YTONON ####[facility] [id number] [address] OF [facility] FINAL PERFORMING LAB Normal [facility] Comment on above: Order Comment: Speci men Type: SPECIMEN OBTAINED BY ASPIRATIONOrdering Facility: [facility] Address: [address] [place] [address] Result Comment: Tech nical component, camp nurse screening performed at [facility], [facility] [place] [address] CLIA# [id number] Diagnostic interpretation performed at [facility], [facility] [address] [place] [address] CLIA# [id number] Mortuary Beautician: Axel Romano M.D. Performed By: #### C YTONON ####[facility] [id number] [address] GROSS DESCRIPTION Normal [place] Comment on above: Order Comment: Speci men Type: SPECIMEN OBTAINED BY ASPIRATIONOrdering Facility: [facility] Address: [address] [place] [address] Result Comment: A. T RANSBRONCHIAL FINE-NEEDLE ASPIRATION, LEFT UPPER LOBE 30 cc cloudy red CytoLyt with material. ThinPrep and Cell Block prepared and 14 smears (7 air dried and 7 fixed). Performed By: #### C YTONON ####[facility] [id number] [address] [place] ORDER COMMENT Normal [facility] Comment on above: Order Comment: Speci men Type: SPECIMEN OBTAINED BY ASPIRATIONOrdering Facility: [facility] Address: [address] [place] [address] Result Comment: Pre- op diagnosis: Bronchiolar disease [J98.09] Performed By: #### C YTONON ####[facility] [id number] [address] [place] NURSING PROGon 05-09-2022 NURSING PROG HNO ID: [id number] Author: Luz Maria Blanca RN Service: Nursing [...] Signed By: Luz Maria Blanca RN Normal [facility] SURGICAL PATHOLOGYon 023 CASE REPORT Normal [facility] Comment on above: Order Comment: Speci men Type: TISSUE SPECIMENOrdering Facility: [facility] Address: [address] [place] [address] Result Comment: Surg ical Pathology Report Case: [id number] Authorizing Provider: Yasmin Sorensen MD Collected: 05/09/2022 09:34 AM Ordering Location: Admitting Received: 05/09/2022 10:56 AM Pathologist: Tucker Mulligan V, MD Specimen: TRANSBRONCHIAL BIOPSY, LEFT UPPER LOBE, SELENE NODULE Performed By: #### S ####[facility] [id number] [address] [place] CLINICAL HISTORY Normal [facility] Comment on above: Order Comment: Speci men Type: TISSUE SPECIMENOrdering Facility: [facility] Address: [address] [place] [address] Result Comment: Pre- op diagnosis: Bronchiolar disease [J98.09] Performed By: #### S ####[facility] [id number] [address] [place] DIAGNOSIS COMMENT Normal [place] Comment on above: Order Comment: Speci men Type: TISSUE SPECIMENOrdering Facility: [facility] Address: [address] [address] Result Comment: Deep er levels were examined. No definite neoplasm is present. Performed By: #### S ####[facility] [id number] [address] FINAL DIAGNOSIS Normal 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 [facility]/ 05/12/2022 Performed By: #### S ####[facility] [id number] [address] FINAL PERFORMING LAB Normal [facility] Comment on above: Order Comment: Speci men Type: TISSUE SPECIMENOrdering Facility: [facility] Address: [address] [place] [address] Result Comment: Diag nostic interpretation performed at [place] [address] CLIA# [id number] Mortuary Beautician: Axel Romano M.D. Performed By: #### S ####[facility] [id number] [address] [place] DESCRIPTION Normal [place] Comment on above: Order Comment: Speci men Type: TISSUE SPECIMENOrdering Facility: [facility] Address: [address] [place] [address] Result Comment: A. T RANSBRONCHIAL BIOPSY, LEFT UPPER LOBE Received in formalin are multiple pieces of carcamo, soft tissue aggregating to 1.6 x 0.4 x 0.2 cm. Totally submitted in one cassette. GMR May 09, 2022 4:05 PM Gross examination performed at [address] [place] [address] Performed By: #### S ####[facility] LABCLIA [id number] AffresolSuyapa [facility] [id number] [address] [place] [address] CHEST WO IVCONon 05-06-19 CT CHEST WO IVCON * * *Final Report* * * DATE OF EXAM: May 06 2022 8:57AM [facility] 0541 - CT CHEST WO IVCON / [...] No abnormality in the imaged upper abdomen. Relocation Director (topogram) images: No additional findings. IMPRESSION: 1. [...] any questions regarding this interpretation, please call [phone]. If you are unable to reach us at the number above, please feel free to contact [facility] eRadiology at [phone]. [id number] Normal [facility] Covid-19 PCR (CVDTBH)on 04-14 SARS-CoV-2 (COVID-19) RNA KRUNAL+probe Ql (Unsp spec) Not detected Normal NOT DETECTED [facility] Comment on above: Result Comment: This test is not yet approved or cleared by the [place] FDA. When there are no FDA-approved or cleared tests available, and other criteria are met, FDA can make tests available under an emergency access mechanism called an Emergency Use Authorization (EUA). The EUA for this test is supported by the Nutritional Chemist of Health and Human Service's (HHS's) declaration [...] SARS-CoV-2. Performed By: #### R SPLUS #### [facility] [address] [place] [address] Dr. Geri Pradhan Basic metabolic 2000 panelon 04-24-2022 Anion gap [Moles/Vol] 5 mmol/L Low 9-18 [facility] Comment on above: Order Comment: Speci men Type: BLOOD SPECIMENOrdering Facility: [facility] Address: [address] [address] Performed By: #### 2 4321-2 ####[facility] LABCLIA [id number] [place] [address] Calcium [Mass/Vol] 9.8 mg/dL Normal 8.5-10.2 [facility] Comment on above: Order Comment: Speci men Type: BLOOD SPECIMENOrdering Facility: [facility] Address: [address] [address] Performed By: #### 2 4321-2 ####[facility] LABCLIA [id number] [place] [address] Chloride [Moles/Vol] 93 mmol/L Low 97-105 [facility] Comment on above: Order Comment: Speci men Type: BLOOD SPECIMENOrdering Facility: [facility] Address: [address] [address] Performed By: #### 2 4321-2 ####[facility] LABCLIA [id number] [place] [address] CO2 [Moles/Vol] 41 mmol/L High 22-[address] [facility] Comment on above: Order Comment: Speci men Type: BLOOD SPECIMENOrdering Facility: [facility] Address: [address] [address] Performed By: #### 2 4321-2 ####[facility] LABCLIA [id number] [place] [address] Creatinine [Mass/Vol] 0.48 mg/dL Low 0.58-0.96 [facility] Comment on above: Order Comment: Speci men Type: BLOOD SPECIMENOrdering Facility: [facility] Address: [address] [place] [address] Performed By: #### 2 4321-2 ####[facility] LABCLIA [id number] [place] [address] ESTIMATED GLOMERULAR FILTRATION RATE 109 mL/min/1.73m??? Normal >=[address] [facility] Comment on above: Order Comment: Speci men Type: BLOOD SPECIMENOrdering Facility: [facility] Address: [address] [place] [address] Result Comment: Angelique mated Glomerular Filtration Rate [...] actual GFR. Performed By: #### 2 4321-2 ####[facility] LABCLIA [id number] [place] [address] Glucose [Mass/Vol] 94 mg/dL Normal 74-99 [facility] Comment on above: Order Comment: Speci men Type: BLOOD SPECIMENOrdering Facility: [facility] Address: [address] [place] [address] Result Comment: The [place] Diabetes Association (ADA) provides guidance for cutoff [...] Standards of Medical Care in Diabetes 2016, [place] Diabetes Association. Diabetes Care. 2016.39(Suppl 1). Performed By: #### 2 4321-2 ####[facility] LABCLIA [id number] [place] [address] Potassium [Moles/Vol] 4.0 mmol/L Normal 3.7-5.1 [facility] Comment on above: Order Comment: Speci men Type: BLOOD SPECIMENOrdering Facility: [facility] Address: [address] [address] Performed By: #### 2 4321-2 ####[facility] LABCLIA [id number] [place] [address] Sodium [Moles/Vol] 139 mmol/L Normal 136-144 [facility] Comment on above: Order Comment: Speci men Type: BLOOD SPECIMENOrdering Facility: [facility] Address: [address] [address] Performed By: #### 2 4321-2 ####[facility] LABCLIA [id number] [place] [address] Urea nitrogen [Mass/Vol] 11 mg/dL Normal 7-[address] [facility] Comment on above: Order Comment: Speci men Type: BLOOD SPECIMENOrdering Facility: [facility] Address: [address] [address] Performed By: #### 2 4321-2 ####[facility] LABCLIA [id number] [place] [address] CBC W Auto Differential pane l (Bld)on 04-24-2022 Basophils (Bld) [#/Vol] 0.03 10*3/uL Normal <0.[address] [facility] Comment on above: Order Comment: Speci men Type: BLOOD SPECIMENOrdering Facility: [facility] Address: [address] [place] [address] Performed By: #### 5 7021-8 ####[facility] LABCLIA [id number] [place] [address] Basophils/100 WBC (Bld) 0.4 % Normal [facility] Comment on above: Order Comment: Speci men Type: BLOOD SPECIMENOrdering Facility: [facility] Address: [address] [place] [address] Performed By: #### 5 7021-8 ####[facility] LABCLIA [id number] [place] [address] Differential cell count method Nom (Bld) Auto Normal [facility] Comment on above: Order Comment: Speci men Type: BLOOD SPECIMENOrdering Facility: [facility] Address: [address] [place] [address] Performed By: #### 5 7021-8 ####[facility] LABCLIA [id number] [place] [address] Eosinophils (Bld) [#/Vol] 0.10 10*3/uL Normal <0.[address] [facility] Comment on above: Order Comment: Speci men Type: BLOOD SPECIMENOrdering Facility: [facility] Address: [address] [address] Performed By: #### 5 7021-8 ####[facility] LABCLIA [id number] [place] [address] Eosinophils/100 WBC (Bld) 1.4 % Normal [facility] Comment on above: Order Comment: Speci men Type: BLOOD SPECIMENOrdering Facility: [facility] Address: [address] [place] [address] Performed By: #### 5 7021-8 ####[facility] LABCLIA [id number] [place] [address] Erythrocyte distribution width (RBC) [Ratio] 13.2 % Normal 11.5-15.[address] [facility] Comment on above: Order Comment: Speci men Type: BLOOD SPECIMENOrdering Facility: [facility] Address: [address] [place] [address] Performed By: #### 5 7021-8 ####[facility] LABCLIA [id number] [place] [address] Hematocrit (Bld) [Volume fraction] 42.2 % Normal 36.0-46.[address] [facility] Comment on above: Order Comment: Speci men Type: BLOOD SPECIMENOrdering Facility: [facility] Address: [address] [place] [address] Performed By: #### 5 7021-8 ####[facility] LABCLIA [id number] [place] [address] Hemoglobin (Bld) [Mass/Vol] 12.9 g/dL Normal 11.5-15.[address] [facility] Comment on above: Order Comment: Speci men Type: BLOOD SPECIMENOrdering Facility: [facility] Address: [address] [place] [address] Performed By: #### 5 7021-8 ####[facility] LABCLIA [id number] [place] [address] Immature granulocytes (Bld) [#/Vol] 10*3/uL Normal <0.[address] [facility] Comment on above: Order Comment: Speci men Type: BLOOD SPECIMENOrdering Facility: [facility] Address: [address] [place] [address] Performed By: #### 5 7021-8 ####[facility] LABCLIA [id number] [place] [address] Immature granulocytes/100 WBC (Bld) 0.3 % Normal [facility] Comment on above: Order Comment: Speci men Type: BLOOD SPECIMENOrdering Facility: [facility] Address: [address] [place] [address] Performed By: #### 5 7021-8 ####[facility] LABCLIA [id number] [place] [address] Lymphocytes (Bld) [#/Vol] 2.33 10*3/uL Normal 1.00-4.[address] [facility] Comment on above: Order Comment: Speci men Type: BLOOD SPECIMENOrdering Facility: [facility] Address: [address] [address] Performed By: #### 5 7021-8 ####[facility] LABCLIA [id number] [place] [address] Lymphocytes/100 WBC (Bld) 32.3 % Normal [facility] Comment on above: Order Comment: Speci men Type: BLOOD SPECIMENOrdering Facility: [facility] Address: [address] [address] Performed By: #### 5 7021-8 ####[facility] LABCLIA [id number] [place] [address] MCH (RBC) [Entitic mass] 27.2 pg Normal 26.0-34.[address] [facility] Comment on above: Order Comment: Speci men Type: BLOOD SPECIMENOrdering Facility: [facility] Address: [address] [address] Performed By: #### 5 7021-8 ####[facility] LABIA [id number] [place] [address] MCHC (RBC) [Mass/Vol] 30.6 g/dL Normal 30.5-36.0 [facility] Comment on above: Order Comment: Speci men Type: BLOOD SPECIMENOrdering Facility: [facility] Address: [address] [place] [address] Performed By: #### 5 7021-8 ####[facility] LABCLIA [id number] [place] [address] MCV (RBC) [Entitic vol] 89.0 fL Normal 80.0-100.[address] [facility] Comment on above: Order Comment: Speci men Type: BLOOD SPECIMENOrdering Facility: [facility] Address: [address] [place] [address] Performed By: #### 5 7021-8 ####[facility] LABCLIA [id number] [place] [address] Monocytes (Bld) [#/Vol] 0.66 10*3/uL Normal <0.[address] [facility] Comment on above: Order Comment: Speci men Type: BLOOD SPECIMENOrdering Facility: [facility] Address: [address] [place] [address] Performed By: #### 5 7021-8 ####[facility] LABCLIA [id number] [place] [address] Monocytes/100 WBC (Bld) 9.2 % Normal [facility] Comment on above: Order Comment: Speci men Type: BLOOD SPECIMENOrdering Facility: [facility] Address: [address] [place] [address] Performed By: #### 5 7021-8 ####[facility] LABCLIA [id number] [place] [address] Neutrophils (Bld) [#/Vol] 4.07 10*3/uL Normal 1.45-7.[address] [facility] Comment on above: Order Comment: Speci men Type: BLOOD SPECIMENOrdering Facility: [facility] Address: [address] [place] [address] Performed By: #### 5 7021-8 ####[facility] LABCLIA [id number] [place] [address] Neutrophils/100 WBC (Bld) 56.4 % Normal [facility] Comment on above: Order Comment: Speci men Type: BLOOD SPECIMENOrdering Facility: [facility] Address: [address] [address] Performed By: #### 5 7021-8 ####[facility] LABCLIA [id number] [place] [address] Nucleated RBC (Bld) [#/Vol] 10*3/uL Normal <0.[address] [facility] Comment on above: Order Comment: Speci men Type: BLOOD SPECIMENOrdering Facility: [facility] Address: [address] [address] Performed By: #### 5 7021-8 ####[facility] LABCLIA [id number] [place] [address] Nucleated RBC/100 WBC (Bld) [Ratio] 0.0 /100 WBC Normal [facility] Comment on above: Order Comment: Speci men Type: BLOOD SPECIMENOrdering Facility: [facility] Address: [address] [place] [address] Performed By: #### 5 7021-8 ####[facility] LABCLIA [id number] [place] [address] Platelet mean volume (Bld) [Entitic vol] 8.9 fL Low 9.0-12.[address] [facility] Comment on above: Order Comment: Speci men Type: BLOOD SPECIMENOrdering Facility: [facility] Address: [address] [address] Performed By: #### 5 7021-8 ####[facility] LABCLIA [id number] [place] [address] Platelets (Bld) [#/Vol] 401 10*3/uL High 150-[address] [facility] Comment on above: Order Comment: Speci men Type: BLOOD SPECIMENOrdering Facility: [facility] Address: [address] [place] [address] Performed By: #### 5 7021-8 ####[facility] LABCLIA [id number] [place] [address] RBC (Bld) [#/Vol] 4.74 10*6/uL Normal 3.90-5.20 [facility] Comment on above: Order Comment: Speci men Type: BLOOD SPECIMENOrdering Facility: [facility] Address: [address] [place] [address] Performed By: #### 5 7021-8 ####[facility] LABCLIA [id number] [place] [address] WBC (Bld) [#/Vol] 7.21 10*3/uL Normal 3.70-11.00 [facility] Comment on above: Order Comment: Speci men Type: BLOOD SPECIMENOrdering Facility: [facility] Address: [address] [place] [address] Performed By: #### 5 7021-8 ####[facility] LABIA [id number] [place] [address] [facility] Nurse Visit (HEMASA) CARA GUERRERO ([id number]) 1960 F Date Time Provider Department 04/24/22 11:00 AM GARY NURSE ANGUS ARENAS During your visit today, we recorded the following information about you: Marie Corrales 04/24/2022 11:30 AM Signed EKG performed as ordered. Electronically sent to [facility] main. Placed paper copy in scan folder. Marie Corrales MA Referring Provider: VITOR FARIAS [[id number]] Allergies As of Date: 04/24/2022 Noted Allergy Reaction LEVOQUIN (LEVOFLOXACIN) 03/02/2018 16 - Unknown Comments: Tendonitis but can take avalox Date Reviewed: 03/14/2022 Reviewed by: Julisa Pressley LPN - Fully Assessed Visit Diagnosis:Lung mass [R91.8] Order(s):ECG COMPLETE [ECG01] Order #: [id number] Prescriptions as of 04/24/2022 - iv contrast [...] (HCC) [C34.9*04/07/2018 Visit Notes: >> Marie Corrales [facility] Apr 24, 2022 11:29 AM Status: Signed EKG performed as ordered. Electronically sent to [facility] main. Placed paper copy in scan folder. Marie GARY Corrales Encounter Status:Closed by MARIE CORRALES on 04/24/22 [facility] [place] 04-24-2022 CNPN Telephone (PUBRON) CARA GUERRERO ([id number]) 1960 F Date Time Provider Department 04/24/22 [...] Encounter Status:Closed by FLORINA ESTRADA on 04/24/22 [facility] CNS60kh 04-24-2022 ECG01 Ventricular Rate : 1 03 BPM Atrial Rate : 103 BPM P-R Interval : 162 ms QRS Duration : 72 ms Q-T Interval : 340 ms QTC Calculation(Bazett) : 445 ms Calculated P [place] : 85 degrees Calculated R [place] : 82 degrees Calculated T [place] : 85 degrees SINUS TACHYCARDIA RIGHT ATRIAL ENLARGEMENT BORDERLINE ECG Reconfirmed by JOSE JIN MD ([id number]) on 05/04/2022 1:40:49 PM NAME : CARA GUERRERO PID : [id number] : 1960 Gender : Female Race : ORD : Procedure Date : Apr 24 2022 12:35:15 Edit Date : May 04 2022 13:40:50 Diagnosis: SINUS TACHYCARDIA RIGHT ATRIAL ENLARGEMENT BORDERLINE ECG Reconfirmed by JOSE JIN MD ([id number]) on 05/04/2022 1:40:49 PM Test Reason : Location : [facility] Overread By : JOSE JIN MD Edited By : JOSE JIN MD Referred By : , Acquired by : Ermias HAIRSTON [facility] [place] 04-23-2022 CNPN Telephone (NCCAP) CARA GUERRERO ([id number]) 1960 F Date Time Provider Department 04/23/22 ABDI ISRAEL NCCAP During your visit today, we recorded the [...] Encounter Status:Closed by ALEX NASH on 04/29/22 [facility] [place] 04-22-2022 ECTORN Telephone (RADLayered TechnologiesA) CARA GUERRERO ([id number]) 1960 F Date Time Provider Department 04/22/22 [...] Status:Closed by JULISA PRESSLEY on 04/25/[address] [facility] Covid-19 PCR (CVDTBH)on 03-14 SARS-CoV-2 (COVID-19) RNA KRUNAL+probe Ql (Unsp spec) Not detected Normal NOT DETECTED [facility] Comment on above: Result Comment: This test is not yet approved or cleared by the [place] FDA. When there are no FDA-approved or cleared tests available, and other criteria are met, FDA can make tests available under an emergency access mechanism called an Emergency Use Authorization (EUA). The EUA for this test is supported by the Nutritional Chemist of Health and Human Service's (HHS's) declaration [...] consistent with SARS-CoV-2. Performed By: #### Gerry INGRAM, CMP #### [facility] [address] [place] [address] Dr. Geri Pradhan INFLUENZA A AND B AGon 04-08 [facility] SEE BELOW Normal [facility] Comment on above: Result Comment: Nega tive for Flu A protein angiten. Infection due to Flu A cannot be ruled out. Flu A angiten in the sample may be below the detection limit of the test. Performed By: #### Gerry INGRAM, CMP #### [facility] [address] [place] [address] Dr. Geri Prad[facility] SEE BELOW Normal [facility] Comment on above: Result Comment: Nega tive for Flu B protein antigen. Infection due to Flu B cannot be ruled out. Flu B antigen in the sample may be below the detection limit of the test. Performed By: #### Gerry INGRAM, CMP #### [facility] [address] [place] [address] Dr. Geri Pradhan INFLUENZA A AG Negative Normal NEGATIVE SEE COMMENT [facility] Comment on above: Performed By: #### Gerry INGRAM CMP #### [facility] [address] [place] [address] Dr. Geri Pradhan INFLUENZA B AG Negative Normal NEGATIVE SEE COMMENT [facility] Comment on above: Performed By: #### Gerry INGRAM, CMP #### [facility] [address] [place] [address] Dr. Geri Pradhan INTERNAL CONTROLS Within Normal Limits Normal Wi thin Normal Limits [facility] Comment on above: Performed By: #### Gerry INGRAM, CMP #### [facility] [address] [place] [address] Dr. Geri STEINBERGOVon 03-14-2022 CNOV Office Visit (RADTSA ) CARA GUERRERO ([id number]) 1960 F Date Time Provider Department 03/14/22 [...] COPD, who is diagnosed with Stage IA3, [id number], non-small cell lung cancer arising from a [...] posttreatment changes. 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 Cross after her CT results were [...] COPD, who is diagnosed with Stage IA3, [id number], non-small cell lung cancer arising from a nodule in the left uppe (more content not included)... Normal [facility] NM PET/CT SKULL-THIGH INITon 03-07-2022 NM [...] MUSCULOSKELETAL: There are no hypermetabolic osseous lesions. Relocation Director (topogram) images: No additional findings. IMPRESSION: Head [...] any questions regarding this interpretation, please call [phone]. If you are unable to reach us at the number a (more content not included)... Normal [facility] 02-20-2022 CNPN Telephone (RADTSA) CARA GUERRERO ([id number]) 1960 F Date Time Provider Department 02/20/22 [...] Encounter Status:Closed by JULISA PRESSLEY on 02/20/22 [facility] Telephone (BoufTSA) CARA GUERRERO ([id number]) 1960 F Date Time Provider Department 02/20/22 [...] of lung [D49.1] Order(s):NM PET/CT SKULL-THIGH INITIAL [[id number]] Order #: [id number] FUTURE Prescriptions as of 02/21/2022 - iv [...] Status:Closed by JULISA PRESSLEY on 02/21/[address] [facility] CT CHEST W CONon 02-17-2022 CT [...] JULES RAMIREZ Date: 2022-02-17 08:02 Normal [facility] CREATININEon 02-15-2022 Creatinine [Mass/Vol] 0.52 mg/dL Critically low 0.55-1.02 [facility] Comment on above: Performed By: #### R SPLUS #### [facility] [address] [place] [address] Dr. Geri Pradhan EGFR-AF TANZANIAN >60 Normal >=60 [facility] Comment on above: Performed By: #### R SPLUS #### [facility] [address] [place] [address] Dr. Geri Pradhan EGFR-NON AF TANZANIAN >60 Normal >=60 [facility] Comment on above: Performed By: #### R SPLUS #### [facility] [address] [place] [address] Dr. Geri Pradhan CULTURE SPUTUMon 02-11-2022 CULTURE SPUTUM Isolate 1 Milagros albicans Light growth of Normal [facility] Comment on above: Performed By: #### S PUTCX #### [facility] [address] [place] [address] Dr. Geri Pradhan SPUTUM GRAM STAINon 02-12-20 22 COMMENTS Normal [facility] Comment on above: Performed By: #### R SPLUS #### [facility] [address] [place] [address] Dr. Geri Pradhan DIPHTHEROIDS Normal [facility] Comment on above: Performed By: #### R SPLUS #### [facility] [address] [place] [address] Dr. Geri Pradhan EPITHELIALS <25 Normal [facility] Comment on above: Performed By: #### R SPLUS #### [facility] [address] [place] [address] Dr. Geri Pradhan FUNGAL ELEMENTS Normal [facility] Comment on above: Performed By: #### R SPLUS #### [facility] [address] [address] [address] Geri Pradhan GRAM NEG BACILLI Normal [facility] Comment on above: Performed By: #### R SPLUS #### [facility] [address] [address] [address] Geri Pradhan GRAM NEG DIPPLOCOCCI Normal [facility] Comment on above: Performed By: #### R SPLUS #### [facility] [address] [address] [address] Geri Pradhan GRAM POS BACILLI Normal [facility] Comment on above: Performed By: #### R SPLUS #### [facility] [address] [place] [address] Dr. Geri Pradhan GRAM POSITIVE COCCI MODERATE Normal [facility] Comment on above: Performed By: #### R SPLUS #### [facility] [address] [place] [address] Dr. Geri Pradhan WBC (Bld) [#/Vol] 10*3/uL Normal [facility] Comment on above: Performed By: #### R SPLUS #### [facility] [address] [place] [address] Dr. Geri Pradhan [facility]on 11-13 SARS-CoV-2 (COVID-19) RNA KRUNAL+probe Ql (Unsp spec) Detected Critically abnormal NOT DETECTED [facility] [facility] Comment on above: Result Comment: This test is not yet approved or cleared by the [place] FDA. When there are no FDA-approved or cleared tests available, and other criteria are met, FDA can make tests available under an emergency access mechanism called an Emergency Use Authorization (EUA). The EUA for this test is supported by the Nutritional Chemist of Health and Human Service's (HHS's) declaration [...] longer be used). Performed By: #### [facility] #### [facility] [address] [address] [address] Geri Pradhan General Surgery Office/Clini c Noteon 03-25-2021 General Surgery Office/Clinic Note Chief Complaint in-office excisional biopsy HPI Staff Presents for in-office excisional biopsy right worship and right lower extremity. No change since last evaluation. History of Present Illness here for excision of right worship and RLE lesions; no change since recent [...] and draped; anesthetized with 1% lidocaine; right worship lesion excised in an elliptical fashion down [...] Cardiac arrest: Mother, Father and Sister. Normal [facility] Comment on above: Result Comment: Elec tronically Signed By: JIM DAVENPORT, Jose Domínguez\Date and Time Signed: 03/25/21 17:02 EST Ambulatory Clinical Summaryo n 02-12-2021 Ambulatory Clinical Summary {[id number] Normal [facility] General Surgery Office/Clini c Noteon 02-12-2021 General Surgery Office/Clinic Note Chief Complaint follow up in-office excisional biopsy HPI Staff 11 day post operative follow up post in-office excisional biopsy right worship and right lower extremity. Sutures intact. Denies bleeding or drainage from incision site. History of Present Illness 11 days s/p excisional biopsy changing lesions right worship and right lower extremity; doing well, no drainage; worship lesion basal cell carcinoma, margins not commented [...] Cardiac arrest: Mother, Father and Sister. Normal [facility] Comment on above: Result Comment: Elec tronically Signed By: JIM DAVENPORT, Jose Domínguez\Date and Time Signed: 02/12/21 13:16 EDT Pathology Noteon 02-06-2021 Pathology Note [id number] 0CD:127 Normal [facility] Ambulatory Clinical Summaryo n 01-11-2021 Ambulatory Clinical Summary {[id number]}CD:[id number] Normal [facility] Ambulatory Clinical Summary {[id number]}CD:[id number] Normal [facility] Physician Referralon 021 Physician Referral [id number] 0CD:127 Normal [facility] [id number] 03-02-2018 Protein mass conc NAME : ELAINE GUERRERO D : [id number] : 1960 Gender : FemaleRace : CaucasianORD : [id number] Procedure Date : Mar 02 2018 12:58:22Edit Date : Mar 02 2018 14:15:37 Diagnosis:NORMAL SINUS RHYTHMRIGHT ATRIAL ENLARGEMENTMINIMAL VOLTAGE CRITERIA FOR LVH, MAY BE NORMAL VARIANTBORDERLINE ECGNO PREVIOUS ECGS AVAILABLEConfirmed by CORNELIA ROGERS M.D. ([id number]) on 03/02/2018 2:15:27 PM Ventricular Rate : 86 BPMAtrial Rate : 86 BPMP-R Interval : 178 msQRS Duration : 72 msQ-T Interval : 374 msQTC Calculation(Bezet) : 447 msP [place] : 88 degreesR [place] : 78 degreesT [place] : 79 degrees Test Reason : Location : 49 : [facility] Overread By : KEN Maier,MIHIRJAYEdited By : KEN Maier,JEAN-CLAUDEYReferred By : DUGLAS FERNANDEZAcquired by : [facility] Vital Signs Date Time Vital Sign Value Performing Clinician Facility 11-27-2022 10:34-0400 Body temperature 96.01 [degF] Abdi Israel MD Work Phone: [facility] 11-27-2022 10:34-0400 Body weight 45.18 kg Abdi Israel MD Work Phone: [facility] 11-27-2022 10:34-0400 Diastolic blood pressure 82 mm[Hg] Abdi Israel MD Work Phone: [facility] 11-27-2022 10:34-0400 Heart rate 110 /min Abdi Israel MD Work Phone: [facility] 11-27-2022 10:34-0400 Respiratory rate 20 /min Abdi Israel MD Work Phone: [facility] 11-27-2022 10:34-0400 SaO2% (BldA) [Mass fraction] 89 % Abdi Israel MD Work Phone: [facility] 11-27-2022 10:34-0400 Systolic blood pressure 132 mm[Hg] Abdi Israel MD Work Phone: [facility] 06-26-2022 15:00-0400 Body height 162.56 cm Jose Elton Other [facility] Other 06-26-2022 15:00-0400 Body mass index (BMI) [Ratio] 18.02 kg/m2 Jose Elton Other [facility] Other 06-26-2022 15:00-0400 Body temperature 97.2 [degF] oJse Conde Other [facility] Other 06-26-2022 15:00-0400 Body weight 47.63 kg Jose Conde Other [facility] Other 06-26-2022 15:00-0400 Diastolic blood pressure 80 mm[Hg] Jose Conde Other [facility] Other 06-26-2022 15:00-0400 Systolic blood pressure 128 mm[Hg] Jose Conde Other [facility] Other 06-02-2022 14:09-0500 Body temperature 97.7 [degF] Abdi Israel MD Work Phone: [facility] 06-02-2022 14:09-0500 Body weight 49.35 kg Abdi Israel MD Work Phone: [facility] 06-02-2022 14:09-0500 Diastolic blood pressure 78 mm[Hg] Abdi Israel MD Work Phone: [facility] 06-02-2022 14:09-0500 Heart rate 116 /min Abdi Israel MD Work Phone: [facility] 06-02-2022 14:09-0500 Respiratory rate 18 /min Abdi Israel MD Work Phone: [facility] 06-02-2022 14:09-0500 SaO2% (BldA) [Mass fraction] 89 % Abdi Israel MD Work Phone: [facility] 06-02-2022 14:09-0500 Systolic blood pressure 125 mm[Hg] Abdi Israel MD Work Phone: [facility] 05-22-2022 15:15-0500 Body height 162.56 cm Jose Conde Other [facility] Other 05-22-2022 15:15-0500 Body mass index (BMI) [Ratio] 18.02 kg/m2 Jose Conde Other [facility] Other 05-22-2022 15:15-0500 Body temperature 98.2 [degF] Jose Conde Other [facility] Other 05-22-2022 15:15-0500 Body weight 47.63 kg Jose Conde Other [facility] Other 05-22-2022 15:15-0500 Diastolic blood pressure 78 mm[Hg] Jose Conde Other [facility] Other 05-22-2022 15:15-0500 Systolic blood pressure 130 mm[Hg] Jose Conde Other [facility] Other 05-09-2022 10:30-0500 Diastolic blood pressure 80 mm[Hg] Yasmin Sorensen MD Work Phone: [facility] 05-09-2022 10:30-0500 Heart rate 99 /min Yasmin Sorensen MD Work Phone: [facility] 05-09-2022 10:30-0500 Respiratory rate 16 /min Yasmin Sorensen MD Work Phone: [facility] 05-09-2022 10:30-0500 SaO2% (BldA) [Mass fraction] 97 % Yasmin Sorensen MD Work Phone: [facility] 05-09-2022 10:30-0500 Systolic blood pressure 134 mm[Hg] Yasmin Sorensen MD Work Phone: [facility] 05-09-2022 10:02-0500 Body temperature 98.2 [degF] Yasmin Sorensen MD Work Phone: [facility] 05-09-2022 07:03-0500 Body height 162.6 cm Yasmin Sorensen MD Work Phone: [facility] 05-09-2022 07:03-0500 Body weight 47.63 kg Yasmin Sorensen MD Work Phone: [facility] 03-14-2022 11:22-0500 Body temperature 97.81 [degF] Abdi Israel MD Work Phone: [facility] 03-14-2022 11:22-0500 Body weight 49.9 kg Abdi Israel MD Work Phone: [facility] 03-14-2022 11:22-0500 Heart rate 101 /min Abdi Israel MD Work Phone: [facility] 03-14-2022 11:22-0500 Respiratory rate 16 /min bAdi Israel MD Work Phone: [facility] 03-14-2022 11:22-0500 SaO2% (BldA) [Mass fraction] 96 % Abdi Israel MD Work Phone: [facility] 06-06-2021 10:01-0500 Body temperature 97.7 [degF] Abdi Israel MD Work Phone: [facility] 06-06-2021 10:01-0500 Body weight 51.71 kg Abdi Israel MD Work Phone: [facility] 06-06-2021 10:01-0500 Diastolic blood pressure 67 mm[Hg] Abdi Israel MD Work Phone: [facility] 06-06-2021 10:01-0500 Heart rate 97 /min Abdi Israel MD Work Phone: [facility] 06-06-2021 10:01-0500 Respiratory rate 20 /min Abdi Israel MD Work Phone: [facility] 06-06-2021 10:01-0500 SaO2% (BldA) [Mass fraction] 93 % Abdi Israel MD Work Phone: [facility] 06-06-2021 10:01-0500 Systolic blood pressure 120 mm[Hg] Abdi Israel MD Work Phone: [facility] Encounters Encounter Date Encounter Type Care Provider Facility Start: 04-09-2023 End: 04-09-2023 ambulatory ANA DRIVER Not Available Start: 11-27-2022 End: 11-28-2022 ambulatory ABDI ISRAEL Facility:[facility] Start: 11-27-2022 End: 11-28-2022 Patient encounter procedure Abdi Israel MD Work Phone: Radiation Oncology Comment on above: Neoplasm of lung (Pr imary Dx) Start: 11-18-2022 Telephone encounter Ced Rojas Hematology/Oncology Comment on above: Appointment Start: 09-02-2022 End: 09-05-2022 Evaluation and management of inpatient DR ADITHYA KENYON . Facility: Start: 06-26-2022 End: 06-26-2022 ambulatory Jose Conde Other [facility] Other Start: 06-26-2022 Office outpatient vi sit 25 minutes Jose LORENZANA Infectious Disease Start: 06-10-2022 End: 06-10-2022 ambulatory Jose Conde Other [facility] Other Start: 06-10-2022 Telephone encounter Jose RAMOS G Infectious Disease Start: 06-02-2022 End: 06-02-2022 ambulatory ADITHYA KENYON Facility:[facility] Start: 06-02-2022 End: 06-02-2022 Patient encounter procedure Abdi Israel MD Work Phone: Radiation Oncology Comment on above: Non-small cell cance r of left lung (HCC) (Primary Dx) Start: 05-23-2022 End: 05-23-[address] JOSE CONDE Facility:[facility] Start: 05-22-2022 End: 05-23-[address] JOSE CONDE [facility] Other Start: 05-22-2022 Office outpatient ne w 45 minutes Jose LORENZANA Infectious Disease Start: 05-14-2022 Telephone encounter Abdi Israel MD Work Phone: Radiation Oncology Comment on above: Appointment Start: 05-09-2022 ambulatory ADITHYA M JESSEZachary Facility: [facility] Start: 05-09-2022 End: 05-09-2022 Subsequent hospital visit by physician Yasmin Sorensen MD Work Phone: Admitting Comment on above: Bronchiolar disease [J98.09] Start: 05-08-2022 Encounter for preprocedural laboratory examination DR DOCTOR DAS [facility] Start: 05-06-2022 End: 05-06-[address] DOCTOR DAS Facility:[facility] Start: 05-06-2022 End: 05-06-2022 Encounter for preprocedural laboratory examination DR DOCTOR DAS Facility:[facility] Start: 05-06-2022 End: 05-06-2022 ambulatory VITOR FARIAS Facility:[facility] Start: 04-28-2022 End: 04-28-2022 ambulatory Vitor Farias MD Work Phone: Pulmonology Comment on above: Non-small cell cance r of left lung (HCC) (Primary Dx); Lung mass; Centrilobular emphysema (HCC) Start: 04-28-2022 End: 04-28-2022 Telemedicine consultation with patient Vitor Farias MD Work Phone: [facility] Start: 04-24-2022 Telephone encounter Florina GUAMAN Pulmonary Medicine Comment on above: Appointment (PreOp B ronch) Start: 04-24-2022 End: 04-24-2022 ambulatory VITOR FARIAS Facility:[facility] Start: 04-23-2022 Orders Only Alicja Reece APRN.DRAY TRUCK DRIVER Work Phone: Admitting Comment on above: Preoperative examina tion (Primary Dx) Appointment Start: 04-23-2022 Preprocedural examin ation done Alicja Reece GOLF BALL WINDER.DRAY TRUCK DRIVER Work Phone: Admitting Start: 04-22-2022 ambulatory Vitor cagle MD Work Phone: Pulmonary Medicine Start: 04-22-2022 Telephone encounter Abdi Israel MD Work Phone: Radiation Oncology Comment on above: Patient Update; Appo intment Start: 04-08-2022 End: 04-08-[address] ADITHYA KENYON . Facility: Start: 03-14-2022 End: 03-14-2022 ambulatory ABDI ISRAEL Facility:[facility] Start: 03-14-2022 End: 03-14-2022 Patient encounter procedure Abdi Israel MD Work Phone: Radiation Oncology Comment on above: Non-small cell cance r of left lung (HCC) (Primary Dx) Start: 03-07-2022 End: 03-07-2022 ambulatory ABDI ISRAEL Facility:[facility] Start: 02-20-2022 Telephone encounter Abdi Israel MD Work Phone: Radiation Oncology Comment on above: Orders Start: 02-15-2022 End: 02-16-[address] ADITHYA KENYON . Facility: Start: 02-11-2022 End: 02-11-[address] ADITHYA [...] of lung Start: 03-02-2018 Patient encounter procedure [facility] Start: 03-24-2017 Ambulatory JAYE HOUGH Facil [id number] Start: 03-24-2017 Ambulatory Adithya Kenyon Fac ility:[id number] Procedures Date Procedure Procedure Detail Performing Clinician Start: 05-09-2022 [facility] incl fluor g dnce dx w/cell washg spx Abdi Israel MD Work Phone: Start: 06-06-2021 Adult depression screening assessment Abdi Israel MD Work Phone: Plan of Treatment Date Care Activity Detail Author Start: 04-24-2025 DIABETES SCREEN DIABETES SCREEN [facility] Start: 05-13-2023 End: 07-13-2023 CREATININE BLD CREATININE BLD Lab Routine Neoplasm of lung Expected: 05/13/2023 (Approximate), Expires: 07/13/2023 [facility] Work Phone: Comment on above: Expected: 05/13/2023 (Approximate), Expires: 07/13/2023 Start: 05-13-2023 End: 12-27-2023 CT CHEST W IVCON CT CHEST W IVCON Radiology Routine Neoplasm of lung Expected: 05/13/2023 (Approximate), Expires: 12/27/2023 [facility] Work Phone: Comment on above: Expected: 05/13/2023 (Approximate), Expires: 12/27/2023 Start: 12-12-2022 Influenza vaccination INFLUENZA (#1) [facility] Start: 06-06-2022 Adult depression screening assessment DEPRESSION SCREENING [facility] Start: 06-06-2022 End: 06-06-2022 CREATININE BLD CREATININE BLD Lab Routine Non-small cell cancer of left lung (HCC) Expected: 06/06/2022, Expires: 06/06/2022 [facility] Work Phone: Comment on above: Expected: 06/06/2022 , Expires: 06/06/2022 Start: 06-06-2022 End: 07-06-2022 Ct thorax w/contrast material CT CHEST W IVCON Radiology Routine Non-small cell cancer of left lung (HCC) Neoplasm of lung Expected: 06/06/2022, Expires: 07/06/2022 [facility] Work Phone: Comment on above: Expected: 06/06/2022 , Expires: 07/06/2022 Start: 04-24-2022 End: 06-24-2022 SARS-CoV-2 (COVID-19) RNA [Presence] in Respiratory specimen by KRUNAL with probe detection INTERMEDIATE RAPID COVID Microbiology Routine Preoperative examination Expected: 04/24/2022, Expires: 06/24/2022 [facility] Work Phone: Comment on above: Expected: 04/24/2022 , Expires: 06/24/2022 Start: 04-22-2022 End: 06-22-2022 Basic metabolic 2000 panel - Serum or Plasma BASIC METABOLIC PNL Lab STAT Lung mass Expected: 04/22/2022, Expires: 06/22/2022 [facility] Work Phone: Comment on above: Expected: 04/22/2022 , Expires: 06/22/2022 Start: 04-22-2022 End: 06-22-2022 CBC W Auto Differential panel - Blood CBC + DIFF Lab STAT Lung mass Expected: 04/22/2022, Expires: 06/22/2022 [facility] Work Phone: Comment on above: Expected: 04/22/2022 , Expires: 06/22/2022 Start: 04-13-[address] [facility] Start: 12-12-2021 Influenza vaccination INFLUENZA (#1) [facility] Start: 04-13-2021 DEPRESS[address] [facility] [facility] Start: 03-02-2021 DIABETES SCREEN DIABETES SCREEN [facility] Start: 08-26-2011 SHINGRIX VACCINE (1 of 2) SHINGRIX VACCINE (1 of 2) [facility] Start: 2006 COLOGUARD (FIT-DNA) COLOGUARD (FIT-D NA) [facility] Start: 2006 Colonoscopy COLONOSCOPY [facility] Start: 2006 COLORECTAL CANCER SCREENING COLORECTAL CANCER SCREENING [facility] Start: [address] COLONOGRAPHY [facility] Start: 2006 FECAL OCCULT BLOOD FECAL OCCULT BLOO D [facility] Start: 2006 LIPID SCREEN LIPID SCREEN [facility] Start: 2006 SIGMOIDOSCOPY SIGMOIDOSCOPY [facility] Start: 2001 Mammography MAMMOGRAM [facility] Start: 08-26-1991 HPV TESTING HPV TESTING [facility] Start: 08-26-1991 Zoledronic acid therapy ALPHA- 1 ANTITRYPSIN DEFICIENCY SCREENING [facility] Start: 1982 PAP TESTING PAP TESTING [facility] Start: 1980 Urine microalbumin profile DTAP,TDAP,TD (1 - Tdap) [facility] Start: 08-26-1979 ANNUAL PCP TEAM COILED TUBING SUPERVISOR PREETHI DISEASE VISIT ANNUAL PCP TEAM CHRONIC DISEASE VISIT [facility] Start: 08-26-1979 HEPATITIS C SCREENING HEPATITIS C SC REENING [facility] Start: 08-26-1979 HIV SCREENING HIV SCREENING [facility] Start: 08-26-1979 SPIROMETRY SPIROMETRY [facility] Start: 08-26-1967 PNEUMOCOCCAL (1 - PCV) PNEUMOCOCCAL (1 - PCV) [facility] Start: 1966 COVID-19 VACCINE (1) COVID-19 VACCIN E (1) [facility] Start: 02-25-1962 COVID-19 VACCINE (#1) COVID-19 VACCI NE (#1) [facility] End: 05-22-2023 Ct thorax w/o contrast material CT CHEST WO IVCON Radiology Routine Lung mass 1 Occurrences starting 04/22/2022 until 05/22/2023 [facility] Work Phone: Comment on above: 1 Occurrences starti ng 04/22/2022 until 05/22/2023 CYTOLOGY NON-BUSINESS SERVICES CLERK [facility] Work Phone: Comment on above: Release Upon Orderin g for 1 Occurrences starting 05/09/2022, 1 completed End: 04-22-2023 ECG COMPLETE ECG COMPLETE ECG STAT Lung mass 1 Occurrences starting 04/22/2022 until 04/22/2023 [facility] Work Phone: Comment on above: 1 Occurrences starti ng 04/22/2022 until 04/22/2023 End: 03-22-[address] attenuation skull base mid-thigh NM PET/CT SKULL-THIGH INITIAL Radiology Routine Neoplasm of lung 1 Occurrences starting 02/21/2022 until 03/22/2023 [facility] Work Phone: Comment on above: 1 Occurrences starti ng 02/21/2022 until 03/22/2023 SARS-CoV-2 (COVID-19 ) RNA [Presence] in Respiratory specimen by KRUNAL with probe detection SELF CHECK COVID Microbiology Routine Lung mass Ordered: 04/22/2022 [facility] Work Phone: Comment on above: Ordered: 04/22/2022 SURGICAL PATHOLOGY [facility] Work Phone: Comment on above: Release Upon Orderin g for 1 Occurrences starting 05/09/2022, 1 completed [facility] Immunizations Immunization Date Immunization Notes Care Provider Fa [facility] 03-04-2022 influenza, injectabl e, quadrivalent, preservative free Vitor Farias MD Work Phone: [facility] 03-19-2021 influenza, injectabl e, quadrivalent, preservative free Vitor Farias MD Work Phone: [facility] 02-22-2021 influenza virus vacc ine, unspecified formulation Vitor Farias MD Work Phone: [facility] 03-02-2020 Influenza, injectabl e, Madin Bushra Canine Kidney, preservative free, quadrivalent Vitor Farias MD Work Phone: [facility] 02-02-2019 Influenza, injectabl e, Madin Bushra Canine Kidney, preservative free, quadrivalent Vitor Farias MD Work Phone: [facility] 03-02-2018 influenza, injectabl e, quadrivalent, contains preservative Abdi Israel MD Work Phone: [facility] Payers Date Payer Category Payer Medicaid [employer] [id number] 2018-Present [phone] [address] [place] [address] Medicaid [id number] 2018 Medicaid [id number] 1960 Unknown [id number] 1960 Unknown [id number] 1960 Unknown [id number] 1960 Unknown [id number] 1960 Unknown [id number] 1960 Unknown [id number] 1960 Unknown [id number] 1960 Unknown [id number] 1960 Unknown [id number] 1960 Unknown [id number] 1959 Self-pay [id number] 1959 Unknown [id number] 1959 Unknown [id number] Social History Date Type Detail Facility Start: 03-02-2018 End: 03-14-2022 Tobacco smoking status NHIS Ex-smoker [facility] End: 04-13-2012 History of tobacco use Current smoker [facility] Start: 03-02-2018 End: 11-27-2022 Cigarettes smoked current (pack per day) - Reported 1.5 [facility] Start: 03-02-2018 End: 03-14-2022 Tobacco use and exposure Smokeless tobacco non-user [facility] Start: 06-06-2021 End: 03-14-2022 Alcohol intake Current drinker of alcohol (finding) [facility] Start: 1960 Sex Assigned At Not on file C [facility] Start: 05-07-2021 End: 03-14-2022 Exposure to SARS-CoV-2 (event) Not sure [facility] End: 04-13-2012 History of tobacco use Cigarette Smoker [facility] Work Phone: Start: 03-14-2022 End: 11-27-2022 Sex Assigned At [facility] Adult Depression Screening Assessment 0 [facility] Clinical Notes 05-14-2011 to 11-27-2022 Abdi Israel MD - 11/27/2022 10:30 AM EDTTelephone Encounter - Julisa Pressley LPN - 11/18/2022 3:29 PM EDTTelephone Encounter - Ced Victoria RN - 11/18/2022 2:47 PM EDT Note Date & Type Note Facility 11-27-2022 Note HNO ID: [id number] Author: Abdi Israel MD Service: ? Author Type: Physician Type: Progress Notes Filed: 12/09/2022 9:33 PM Note Text: Radiation Oncology - Follow Up Note PATIENT NAME: PHOEBE Guerrero PATIENT DIAGNOSIS/PATIENT IDENTIFICATION: Ms. Guerrero is a 62-year-old woman with severe COPD, who is diagnosed with Stage IA3, [id number], non-small cell lung cancer arising from a [...] been following up with pulmonary therapy at [facility] and with her furniture salesperson Dr. Driver and using her nebulizers. She [...] COPD, who is diagnosed with Stage IA3, [id number], non-small cell lung cancer arising from a [...] the chest. She will follow with her furniture salesperson Dr. Driver to optimize her respiratory function [...] which included preparing to see the patient, [id number] patient care, and counseling and educating the patient/family/caregiver. This document has been created with the use of voice recognition technology. It may contain inaccuracies, missp (more content not included)... [facility] 11-27-2022 History of Presen t illness Narrative Images from the original note were not included. Radiation Oncology - Follow Up Note PATIENT NAME: PHOEBE Guerrero PATIENT DIAGNOSIS/PATIENT IDENTIFICATION: Ms. Guerrero is a 62-year-old woman with severe COPD, who is diagnosed with Stage IA3, [id number], non-small cell lung cancer arising from a [...] been following up with pulmonary therapy at [facility] and with her furniture salesperson Dr. Driver and using her nebulizers. She [...] COPD, who is diagnosed with Stage IA3, [id number], non-small cell lung cancer arising from a [...] the chest. She will follow with her furniture salesperson Dr. Driver to optimize her respiratory function [...] which included preparing to see the patient, shwk-bf-oikm patient care, and counseling and educating the patient/family/caregiver. This document has been created with the use of voice recognition technology. It may contain inaccuracies, misspellings, inaccurate syntax or inappropriate word context that are a result of the inadequacies/shortcomings of said technology/software. documented in this encounter [facility] 11-18-2022 Miscellaneous Notes FYI--Dr. Driver's progress note is available in Care Everywhere. Dr. Kenyon's office note to be faxed over per his office. Julisa Pressley LPN Pt notified, CT canceled. Katerina working on records from Dr Kenyon and Dr Driver. Images/report being pushed from [facility]. Ced Victoria RN Yes, please cancel CT tomorrow. In addition to the images, please request any office notes from Dr. Kenyon as well as her furniture salesperson. Thanks! Abdi Pt called for CT 11/19/22. She reports CT completed 09/24/22 at [facility]. CT chest verified and will send images/report. LORENZO: Would you like to cancel CT? Please advise Ced Victoria RN documented in this encounter [facility] 06-26-2022 Evaluation note Encounter Date Diagnosis Assessment [...] History of lung cancer (ICD-10 - Z85.118) [facility] Other 02-21-2023 NoteHNO ID: [id number] Author: Abdi Israel MD Service: ? Author Type: Physician Type: Progress Notes Filed: 06/15/2022 8:09 PM Note Text: Radiation Oncology - Follow Up Note PATIENT NAME: PHOEBE Guerrero PATIENT DIAGNOSIS/PATIENT IDENTIFICATION: Ms. Guerrero is a 61-year-old woman with severe COPD, who is diagnosed with Stage IA3, [id number], non-small cell lung cancer arising from a [...] Aspergillus. These results were discussed with her furniture salesperson Dr. Cross and the patient was referred [...] oxygen via nasal cannula at 2 L etxqqb-aiq-eyevu. She notes that her cough is improved [...] COPD, who is diagnosed with Stage IA3, [id number], non-small cell lung cancer arising from a [...] for malignancy but show (more content not included)...[facility] 06-02-2022 History of Present illness Narrative* Abdi Israel MD - 06/02/2022 11:53 PM EST Radiation Oncology - Follow Up Note PATIENT NAME: PHOEBE Guerrero PATIENT Signed by: Abdi Israel MD I spent a total of 20 minutes on the date of the service which included preparing to see the patient, vgmu-co-okml patient care, and counseling and educating the patient/family/caregiver. This document has been created with the use of voice recognition technology. It may contain inaccuracies, misspellings, inaccurate syntax or inappropriate word context that are a result of the inadequacies/shortcomings of said technology/software. documented in [facility] Evaluation note* Encounter Date Diagnosis Assessment Notes [...] History of lung cancer (ICD-10 - Z85.118) [facility] Other 02-01-2023 Miscellaneous Notes* Telephone Encounter - Abdi Israel MD - 05/14/2022 10:40 PM EST Thanks! Abdi * Telephone Encounter - Kendal Lomax [facility] - 05/14/2022 1:59 PM EST Records faxed to Dr. Conde. Requested images be pushed to [facility]. * Telephone Encounter - Alex Nash - [...] yesterday showing fungal/aspergillus infection. Spoke with her furniture salesperson, Dr. Cross, today and agreed to refer to Dr. Conde for ID consult and management of pulmonary infection. Please send last years worth of notes and CT images in addition to pathology results. Thanks! Abdi * Telephone Encounter - Julisa Pressley LPN - 05/14/2022 11:56 AM EST Eleesha: Will you please refer Cara to Dr. Conde for consult aleks dx: Fungal hyphae present, morphologically consistent with Aspergillus species (see comment. Dr. Israel--please sign pended consult order. I left two messages for Cara to call the office so we can notify her that we are arranging this appt. Thanks Julisa Pressley LPN documented in [facility] NoteHNO ID: [id number] Author: Interface Note Service: ? Author Type: ? Type: Progress Notes Filed: 05/10/2022 4:17 AM Note Text: Epic Scheduled Downtime: 05/10/2022 1:00:00 AM to 05/10/2022 3:56:00 [facility]01-27-2023 History of Present illness Narrative* Interface Note - 05/09/2022 8:00 PM EST Epic Scheduled Downtime: 05/10/2022 1:00:00 AM to 05/10/2022 3:56:00 AM documented in this encounter[facility]23 NoteHNO ID: [id number] Author: Anthony Sheppard APRN.PENSION CONSULTANT Service: ? Author Type: Nurse Window Decorator Type: Anesthesia Procedure Notes Filed: 05/09/2022 8:41 AM Note Text: ANESTHESIOLOGY PROCEDURE NOTE Airway General Information Procedure Start Time/Medication Administration: 05/09/2022 8:23 AM Patient location during procedure: OR Timeout Performed Pre-procedure: timeout performed Consent Obtained: Yes Patient identity confirmed: arm band and patient Staffing PENSION CONSULTANT: Anthony Sheppard APRN.PENSION CONSULTANT Performed by: PENSION CONSULTANT Indications and Patient Condition Indications for airway management: anesthesia Preoxygenated: yes anesthesia circuit Patient position: sniffing Method: asleep Cricoid Pressure: No Manual In-Line Stabilization: No Difficult Mask: No Final Airway Details Final airway type: endotracheal airway Final Endotracheal Airway: ETT Cuffed: yes Successful intubation technique: video laryngoscopy Devices used: Soto Endotracheal tube insertion site: oral Blade: Keisha Blade size: #3 ETT size (mm): 8.5 Measured from: lips Measurement (cm): 21 Placement verified by: capnometry Cormack-Lehane Classification: grade I - full view of glottis Number of attempts at approach: 1 Failed airway: no Unrecognized esophageal intubation: no Airway not difficult SIGNATURE: Anthony Sheppard APRN.PENSION CONSULTANT PATIENT NAME: Cara Guerrero DATE: May 09, 2022 TIME: 8:39 AM CSN: [id number] Nurse Note* Luz Maria Blanca RN [...] Luz Maria Blanca RN documented in this encounter[facility]-2023 NotePatient Name: Cara Guerrero Procedure Date: 05/09/2022 [...] physician, the nurse, the anesthesiologist and the varitypist in the pre-procedure area in the procedure [...] in the SARAH. Navigation bronchoscopy utilizing the InstrumentLife Robot was performed. The CT scan was [...] suggestive of benign (more content not included)... [facility]01-24-2023 NoteHNO ID: [id number] Author: RT Fox(R) Service: ? Author Type: [...] BY: RT Fox(R) May 06, 2022 8:53 [facility]01-16-2023 NoteHNO ID: [id number] Author: Vitor Farias MD Service: ? Author Type: Physician Type: Progress Notes Filed: 04/28/2022 4:35 PM Note Text: VIRTUAL VISIT PROGRESS NOTE This is a virtual visit using Playtika video visit. It required patient-provider interaction for [...] eating well. COPD managed locally by a furniture salesperson. HISTORY REVIEWED (electronic chart updated): PAST MEDICAL [...] Emphysema. Controlled and stable; managed by local furniture salesperson. I spent a total of 60 minutes on the date of the service which included preparing to see the patient, lgpq-hw-brzg patient care, completing clinical documentation, obtaining and/or reviewing separately obta (more content not included)...[id number] of Present illness Narrative* Vitor Farias MD - 04/28/2022 3:03 PM EST VIRTUAL VISIT PROGRESS NOTE This is a virtual visit using Playtika video visit. It required patient-provider interaction for [...] eating well. COPD managed locally by a furniture salesperson. HISTORY REVIEWED (electronic chart updated): PAST MEDICAL [...] Emphysema. Controlled and stable; managed by local furniture salesperson. I spent a total of 60 minutes on the date of the service which included preparing to see the patient, ofju-wj-nthy patient care, completing clinical documentation, obtaining and/or reviewing separately obtained history, performing a medically appropriate examination, counseling and educating the pat ient/family/caregiver, ordering medications, tests, or procedures, communicating with other HCPs (not separately reported), independently interpreting results (not separately reported), communicatingresults to the patient/family/caregiver, and care coordination (not separately reported) Vitor Farias MD April 28, 2022 documented in this encounter[facility] Miscellaneous Notes* Telephone Encounter - Alex Nash - 04/23/2022 9:58 AM EST Patient has been scheduled for both & confirmed appt day & time. Alex Nash * Telephone Encounter - Alex Nash - 04/23/2022 9:10 AM EST Called patient to schedule her for EKG & labs per e-mail. No answer, LMOV requesting a returnedphone call. Alex Nash documented in this encounter[facility]-2023 NoteHNO ID: [id number] Author: Vitor Farias MD Service: ? Author Type: Physician Type: Progress Notes Filed: 04/23/2022 3:51 PM Note Text: Bronchoscopy Request: Cleared for scheduling April 23, 2022 Please schedule patient for the following: Outpatient Visit: Bronch Only, visit not needed (last HANDP Date: 04/28/2022) Bronchoscopy Procedures: Navigation Bronchoscopy (Illumisite) Note to occupational safety and health manager: See CC'd Chart routing comment Diagnosis/Reason for [...] try to get labs/EKG/COVID swab done at [facility] Cancer Does the pt need cardiac clearance?: No Is she on anticoagulants/anti-plt therapy?: No Nursing Considerations: (ie: half-way, TB, respiratory isolation, clinical trial, Specific protocol etc.) none Additional notes to the broach operator: Treated SELENE cancer, 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 Please try to access the PET avid area if possible. Consultation request/referral by: Abdi Israel MD ([facility]) Reviewed by: PHANI Farias MD April 22, 2022 3:49 PM Addendum: CBC with diff: WBC 6.81 03/02/2018 RBC 4.94 03/02/2018 Hemoglobin 14.7 03/02/2018 Hematocrit 44.5 03/02/2018 MCV 90.1 03/02/2018 MCH 29.8 03/02/2018 MCHC 33.0 03/02/2018 RDW-CV 12.4 03/02/2018 Platelet Count 234 03/02/2018 MPV 10.3 03/02/2018 Neut% 64.3 03/02/2018 Lymph% 25.3 03/02/2018 [place]% 9.1 03/02/2018 Eosin% 0.7 03/02/2018 Baso% 0.6 03/02/2018 Abs Neut (ANC) 4.36 03/02/2018 Abs [place] 0.62 03/02/2018 Abs Eosin 0.05 03/02/2018 Abs Baso 0.04 03/02/2018 Potassium Date Value Ref Range Status 03/02/2018 4.1 3.7 - 5.1 mmol/L Final Sodium Date Value Ref Range Status 03/02/2018 138 136 - 144 mmol/L Final BUN Date Value Ref Range Status 03/02/2018 9 7 - 21 mg/dL Final Creatinine Date Value Ref Range Status 03/02/2018 0.48 (L) 0.58 - 0.96 mg/dL [facility] History of Present illness Narrative* Vitor [...] try to get labs/EKG/COVID swab done at [facility] Cancer Does the pt need cardiac clearance?: No Is she on anticoagulants/anti-plt therapy?: No Nursing Considerations: (ie: half-way, TB, respiratory isolation, clinical trial, Specific protocol etc.) none Additional notes to the broach 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 Please try to access the PET avid area if possible. Consultation request/referral by: Abdi Israel MD ([facility]) Reviewed by: PHANI Farias MD April 22, 2022 3:49 PM Addendum: CBC with diff: WBC 6.81 03/02/2018 RBC 4.94 03/02/2018 Hemoglobin 14.7 03/02/2018 Hematocrit 44.5 03/02/2018 MCV 90.1 03/02/2018 MCH 29.8 03/02/2018 MCHC 33.0 03/02/2018 RDW-CV 12.4 03/02/2018 Platelet Count 234 03/02/2018 MPV 10.3 03/02/2018 Neut% 64.3 03/02/2018 Lymph% 25.3 03/02/2018 [place]% 9.1 03/02/2018 Eosin% 0.7 03/02/2018 Baso% 0.6 03/02/2018 Abs Neut (ANC) 4.36 03/02/2018 Abs [place] 0.62 03/02/2018 Abs Eosin 0.05 03/02/2018 Abs [...] - 0.96 mg/dL Final documented in this encounterSelect [facility]23 Miscellaneous Notes* Telephone Encounter - Julisa Pressley LPN - 04/22/2022 9:37 AM EST I called to notify Cara that Dr. Farias's office will be calling her to schedule bronchoscopy. Shestates she recently had the flu and her breathing was terrible at that time. She said her symptoms are improving now that she is over the flu. She denies questions at this time. Julisa Pressley LPN documented in this encounterSelect [facility]12-[facility]-2022 NoteHNO ID: [id number] Author: Abdi Israel MD Service: ? Author Type: Physician Type: Progress Notes Filed: 03/26/2022 4:59 AM Note Text: Radiation Oncology - Follow Up Note PATIENT NAME: Cara Guerrero PATIENT DIAGNOSIS/PATIENT IDENTIFICATION: Ms. Guerrero is a 61-year-old woman with severe COPD, who is diagnosed with Stage IA3, [id number], non-small cell lung cancer arising from a [...] posttreatment changes. 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 Cross after her CT results were [...] COPD, who is diagnosed with Stage IA3, [id number], non-small cell lung cancer arising from a nodule in the left upper lobe of the lung adjacent to the aortic arch. Given her severe COPD/emphysema requiring supplemental oxygen and her other medical comorbidities, she was not felt to be a surgical candidate and opted for definitive non-operative management of her early stage (more content not included)...[facility]12-02-2022 History of Present illness Narrative* Abdi Israel MD - 03/14/2022 11:44 PM EST Radiation Oncology - Follow Up Note PATIENT NAME: Cara Guerrero PATIENT Signed by: Abdi Israel MD I spent a total of 20 minutes on the date of the service which included preparing to see the patient, rkba-lp-daif patient care, and counseling and educating the patient/family/caregiver. This document has been created with the use of voice recognition technology. It may contain inaccuracies, misspellings, inaccurate syntax or inappropriate word context that are a result of the inadequacies/shortcomings of said technology/software. documented in this encounter[facility]11-25-2022 NoteHNO ID: [id number] Author: RT Fox(R) Service: ? Author Type: [...] 0736 PATIENT DISCHARGED TO: Ambulatory patient, left ID department area. A Diagnostic radioactive procedure has taken place, with no further precautions necessary other than routine body substance precautions. More information regarding radiation safety can be found using this link: [email or web address] SIGNATURE: RT Fox(R) PATIENT NAME: Cara Guerrero DATE: March 07, 2022 TIME: 7:51 AM PAGER/CONTACT #:[facility]11-25-2022 NoteHNO ID: [id number] Author: Stacia Russell RN Service: ? Author [...] Guerrero DATE: March 07, 2022 TIME: 7:39 [facility]11-11-2022 Miscellaneous Notes* Telephone Encounter - Alex Nash - 02/21/2022 11:41 AM EST Patient has been scheduled and notified of appointment. Alex Nash * Telephone Encounter - Alex Nash - 02/20/2022 2:12 PM EST I will have to work with Shruthi [...] then follow-up to review documented in this encounterSelect [facility]11-10-2022 Miscellaneous Notes* Telephone Encounter - Julisa Pressley [...] then follow-up to review documented in this encounterSelect [facility]02-24-2022 History of Present illness Narrative* Abdi Israel MD - 06/06/2021 4:50 PM EST Radiation Oncology - Follow Up Note PATIENT NAME: Cara Guerrero PATIENT DIAGNOSIS/PATIENT IDENTIFICATION: Ms. Guerrero is a 60-year-old woman with severe COPD, who is diagnosed with Stage IA3, [id number], non-small cell lung cancer arising from a [...] COPD, who is diagnosed with Stage IA3, [id number], non-small cell lung cancer arising from a [...] which included preparing to see the patient, mchq-ud-yixe patient care and counseling and educating the patient/family/caregiver. This document has been created with the use of voice recognition technology. It may contain inaccuracies, misspellings, inaccurate syntax or inappropriate word context that are a result of the inadequacies/shortcomings of said technology/software. documented in this encounterSelect [facility]10-01-2021 NoteChief Complaint consultation for nevus HPI Staff 60 year old female presents on consultation from Dr. Kenyon for right lower leg fresh colored skin lesion. Present for 4 months. Scabbed area from recent trama. Denies itching. Also notes dark pigmentedlesion to right worship. Present 4 months. Does not bleed or itch. History of Present Illness 60 yo female with h/o COPD, previous lung cancer, on oxygen; referred for changing skin lesions; right lower extremity lesion enlarging; recently scratched so scabbed over; no bleeding; right worship lesion with small scab, no pain or [...] nodes, cyanosis, clubbing. Skin: no rashes right worship with 4 mm raised, erythematous lesion with [...] infarction: Brother. Cardiac arrest: Mother, Father and Sister.[facility] HospitalComment [facility]:Result Comment: Electronically Signed By: JIM DAVENPORT, Jose Domínguez\Date and Time Signed: 01/11/21 11:20 [id number] History general Narrative - Reported* Type Description Date Medical History COPD Surgical History appendectomy Surgical History csection Hospitalization History PNA at [facility] 05/2011 [facility] Other Evaluation note* Diagnosis Non-small cell cancer of left lung (HCC)- Primary Neoplasm of lung Neoplasm of unspecified nature of respiratory system [facility] Neoplasm of lung- Primary Neoplasm of unspecified nature of respiratory system [facility] Diagnosis Non-small cell cancer of left lung (HCC)- Primary [facility] Diagnosis Lung mass- Primary Swelling, mass, or lump in chest [facility] Diagnosis Preoperative examination- Primary Preoperative examination, unspecified Bronchiolar disease Other diseases of trachea and bronchus [facility] Diagnosis Non-small cell cancer of left lung (HCC)- Primary Lung mass Swelling, mass, or lump in chest Centrilobular emphysema (HCC) Other emphysema Bronchiolar disease Other diseases of trachea and bronchus [facility] Diagnosis Bronchiolar disease Other diseases of trachea and bronchus Lung nodule Solitary pulmonary nodule [facility] Diagnosis Aspergillus pneumonia (HCC)- Primary Aspergillosis Non-small cell cancer of left lung (HCC) [facility] Diagnosis Non-small cell cancer of left lung (HCC)- Primary documented in this encounter [facility] HospitalEvaluation noteNo [employer] Other Evaluation note* Diagnosis Neoplasm of lung- Primary Neoplasm of unspecified nature of respiratory system [facility] Diagnostic Procedure Only (Routine) - Additional Clinical Info Needed Specialty Diagnoses / Procedures Referred By Contac t Referred To Contact MOLECULAR & FUNCTIONAL IMAGING Diagnoses Neoplasm of lung Procedures NM PET/CT SKULL-THIGH INITIAL PET IMAGING CT ATTENUATION SKULL BASE MID-THIGH Abdi Israel MD [address] [place] [address] [place] [address] Molecular & Functional Imaging [address] [place] [address] Referral ID Status Reason Start Date Expiration Date Visits Requested Visits Authorized [id number] Additional Clinical Info Needed Auto-Generat ed Referral 03/22/2023 1 1 [facility] Summary Purpose Family History No Family History Records FoundNo Family History Records FoundNo Family History Records FoundNo Family History Records FoundNo Family History Records FoundNo Family History Records FoundNo Family History Records FoundNo Family History Records Found Advance Directives No Advanced Directives Records FoundDocuments on File Type Date Recorded Patient Manager Quality Systems Expl anation Advance Directive(s) Advance Directive(s) 03/19/2018 8:37 AM Reason for Referral Specialty Diagnoses / Procedures Referred By Contac t Referred To Contact CT IMAGING Diagnoses Non-small cell cancer of left lung (HCC) Neoplasm of lung Procedures CT CHEST W IVCON DIAGNOSTIC COMPUTED TOMOGRAPHY THORAX W/CONTRAST Abdi Israel MD [address] [place] [address] [place] [address] Ct Imaging Referral ID Status Reason Start Date Expiration Date Visits Requested Visits Authorized [id number] Pending Review Auto-Generat ed Referral 06/06/2022 07/06/2022 1 1 Specialty Diagnoses / Procedures Referred By Contac t Referred To Contact CT IMAGING Diagnoses Lung mass Procedures CT CHEST WO IVCON DIAGNOSTIC COMPUTED TOMOGRAPHY THORAX W/O CNTRST Vitor Farias MD [address] [place] [address] Ct Imaging Referral ID Status Reason Start Date Expiration Date Visits Requested Visits Authorized [id number] Pending Review Auto-Generat ed Referral 04/22/2022 05/22/2023 1 1 Specialty Diagnoses / Procedures Referred By Contac t Referred To Contact [facility] Diagnoses Lung mass Procedures ECG COMPLETE ECG ROUTINE ECG W/LEAST 12 LDS W/I&[place] [address] [place], [place] [id number] [place] [id number] Referral ID Status Reason Start Date Expiration Date Visits Requested Visits Authorized [id number] Pending Review Auto-Generat ed Referral 04/22/2022 04/22/2023 1 1 Specialty Diagnoses / Procedures Referred By Contac t Referred To Contact Infectious Diseases Diagnoses Aspergillus pneumonia (HCC) Non-small cell cancer of left lung (HCC) Procedures CONSULT TO INFECTIOUS DISEASES Abdi Israel MD [address] [place] [address] [place] [address] Referral ID Status Reason Start Date Expiration Date Visits Requested Visits Authorized [id number] Ref Not Required PCP Requested Referral 05/14/2022 05/14/2023 1 1 Specialty Diagnoses / Procedures Referred By Contac t Referred To Contact CT IMAGING Diagnoses Neoplasm of lung Procedures CT CHEST W IVCON DIAGNOSTIC COMPUTED TOMOGRAPHY THORAX W/CONTRAST Abdi Israel MD [address] [place] [address] [place] [address] Ct Imaging [place] [address] Referral ID Status Reason Start Date Expiration Date Visits Requested Visits Authorized [id number] Pending Review Auto-Generat ed Referral 05/13/2023 12/27/2023 1 1 Medications Administered Section Inactive Administered Medications - up to 3 most recent administrations Medication Order MAR Action Action Date Dose Rate Site NaCl 0.9% iv infusion 5-30 mL/hr, INTRAVENOUS, CONTINUOUS, Starting on 05/09/22 at 0730, Until 05/10/22 at 0304, Preprocedure Additional Source Comments INFORMATION SOURCE (unrecogn ized section and content) DATE CREATED AUTHOR 10/06/2017 [facility] DATE CREATED AUTHOR AUTHOR'S ORGANIZ ATION 10/09/2017 [facility] DATE CREATED AUTHOR AUTHOR'S ORGANIZ ATION 03/22/2018 [facility] DATE CREATED AUTHOR AUTHOR'S ORGANIZ ATION 03/26/2021 [employer] [facility] DATE CREATED AUTHOR AUTHOR'S ORGANIZ ATION 04/29/2022 [facility] DATE CREATED AUTHOR AUTHOR'S ORGANIZ ATION 09/19/2022 [facility] DATE CREATED AUTHOR AUTHOR'S ORGANIZ ATION 12/10/[address] [facility] DATE CREATED AUTHOR AUTHOR'S ORGANIZ ATION 04/11/2023 [facility] EPIC Source Comments (unrecognize d section and content) In the event this informatio n is protected by the Federal Confidentiality of Alcohol and Drug Abuse Patient Records regulations: The Federal rules restrict any use of the information to criminally investigate or prosecute any alcohol or drug abuse patient.[facility] the event this information is protected by the Federal Confidentiality of Alcohol and Drug Abuse Patient Records regulations: The Federal rules restrict any use of the information to criminally investigate or prosecute any alcohol or drug abuse patient.[facility] the event this information is protected by the Federal Confidentiality of Alcohol and Drug Abuse Patient Records regulations: The Federal rules restrict any use of the information to criminally investigate or prosecute any alcohol or drug abuse patient.[facility] the event this information is protected by the Federal Confidentiality of Alcohol and Drug Abuse Patient Records regulations: The Federal rules restrict any use of the information to criminally investigate or prosecute any alcohol or drug abuse patient.[facility] the event this information is protected by the Federal Confidentiality of Alcohol and Drug Abuse Patient Records regulations: The Federal rules restrict any use of the information to criminally investigate or prosecute any alcohol or drug abuse patient.[facility] the event this information is protected by the Federal Confidentiality of Alcohol and Drug Abuse Patient Records regulations: The Federal rules restrict any use of the information to criminally investigate or prosecute any alcohol or drug abuse patient.[facility] the event this information is protected by the Federal Confidentiality of Alcohol and Drug Abuse Patient Records regulations: The Federal rules restrict any use of the information to criminally investigate or prosecute any alcohol or drug abuse patient.[facility] the event this information is protected by the Federal Confidentiality of Alcohol and Drug Abuse Patient Records regulations: The Federal rules restrict any use of the information to criminally investigate or prosecute any alcohol or drug abuse patient.[facility] Hospital[facility] the event this information is protected by the Federal Confidentiality of Alcohol and Drug Abuse Patient Records regulations: The Federal rules restrict any use of the information to criminally investigate or prosecute any alcohol or drug abuse patient.[facility] the event this information is protected by the Federal Confidentiality of Alcohol and Drug Abuse Patient Records regulations: The Federal rules restrict any use of the information to criminally investigate or prosecute any alcohol or drug abuse patient.[facility] Hospital[facility] the event this information is protected by the Federal Confidentiality of Alcohol and Drug Abuse Patient Records regulations: The Federal rules restrict any use of the information to criminally investigate or prosecute any alcohol or drug abuse patient.[facility] the event this information is protected by the Federal Confidentiality of Alcohol and Drug Abuse Patient Records regulations: The Federal rules restrict any use of the information to criminally investigate or prosecute any alcohol or drug abuse patient.[facility] HospitalIn the event this information is protected by the Federal Confidentiality of Alcohol and Drug Abuse Patient Records regulations: The Federal rules restrict any use of the information to criminally investigate or prosecute any alcohol or drug abuse patient.[facility] HospitalIn the event this information is protected by the Federal Confidentiality of Alcohol and Drug Abuse Patient Records regulations: The Federal rules restrict any use of the information to criminally investigate or prosecute any alcohol or drug abuse patient.[facility] the event this information is protected by the Federal Confidentiality of Alcohol and Drug Abuse Patient Records regulations: The Federal rules restrict any use of the information to criminally investigate or prosecute any alcohol or drug abuse patient.[facility] Reason for Visit (unrecogniz ed section and content) Reason Comments Lung Cancer Reason Comments Orders Reason Comments Orders Reason Comments Lung Cancer Reason Comments Appointment PreOp Bronch Reason Comments Patient Update Appointment Reason Comments Lung Cancer Lung Mass Reason Comments Appointment Specialty Diagnoses / Procedures Referred By Contac t Referred To Contact ADMITTING Diagnoses Bronchiolar disease Procedures [facility] INCL FLUOR GDNCE DX W/CELL WASHG SPX BRONCHOSCOPY [facility] [address] [place] [address] Referral ID Status Reason Start Date Expiration Date Visits Re quested Visits Authorized [id number] 1 1 Reason Comments Appointment Care Teams (unrecognized sec tion and content) Fleet Sales Associate Relationship Specialty Start Date End Date Adithya Kenyon MD [address] [id number] PCP - General Family Practice 02/25/18 [employer] Associate Relationship Specialty Start Date End Date Adithya Kenyon MD [address] [id number] PCP - General Family Medicine 02/25/18 [employer] Sales Associate Relationship Specialty Start Date End Date Adithya Kenyon MD [address] [place] [address] PCP - General Family Medicine 02/25/18 Fleet Sales Associate Relationship Specialty Start Date End Date Adithya Kenyon MD [address] [id number] PCP - General Family Medicine 02/25/18 [employer] Sales Associate Relationship Specialty Start Date End Date Adithya Kenyon MD [address] [place] [address] PCP - General Family Medicine 02/25/18 Fleet Sales Associate Relationship Specialty Start Date End Date Adithya Kenyon MD [address] [place] [address] PCP - General Family Medicine 02/25/18 [employer] Sales Associate Relationship Specialty Start Date End Date Adithya Kenyon MD [address] [place] [address] PCP - General Family Medicine 02/25/18 Fleet Sales Associate Relationship Specialty Start Date End Date Adithya Kenyon MD [address] [place] [address] PCP - General Family Medicine 02/25/18 Fleet Sales Associate Relationship Specialty Start Date End Date Adithya Kenyon MD [address] [place] [address] PCP - General Family Medicine 02/25/18 Fleet Sales Associate Relationship Specialty Start Date End Date Adithya Kenyon MD PCP - General Family Medicine 02/25/18 [employer] Sales Associate Relationship Specialty Start Date End Date Adithya Kenyon MD PCP - General Family Medicine 02/25/18 Continuous Active and Recently Administ ered Medications (unrecognized section and content) Medication Order 05/07/2022 05/08/2022 05/09/2022 NaCl 0.9% iv infusion 5-30 mL/hr, INTRAVENOUS, CONTINUOUS, Starting on 05/09/22 at 0730, Until 05/10/22 at 0304, Preprocedure [...] BE BASED ON THE PRIMARY CLINICAL RECORDS. [facility]. provides no warranty or guarantee of the accuracy or completeness of information in this document.
[2023-05-07 07:51] LABS: Basophils Percent Auto 0.2 % (0.2-2.0); Eosinophils Absolute Auto 0.1 10^3/uL (0.0-0.7); Eosinophils Percent Auto 0.7 % (0.9-7.0); Hematocrit 41.8 % (36.0-48.0); Hemoglobin 12.8 g/dL (12.0-16.0); Immature Granulocytes Abs Auto 0.05 10^3/uL (0.00-0.03); Immature Granulocytes Pct Auto 0.3 % (0.0-0.5); Lymphocytes Absolute Auto 1.3 10^3/uL (1.2-3.8); Lymphocytes Percent Auto 7.5 % (20.5-60.0); Mean Corpuscular HGB Conc 30.6 g/dL (29.9-35.2); Mean Corpuscular Hemoglobin 27.7 pg (26.7-34.0); Mean Corpuscular Volume 90.5 fL (81.0-99.0); Mean Platelet Volume 9.7 fL (9.5-13.5); Monocytes Absolute Auto 1.2 10^3/uL (0.3-0.8); Monocytes Percent Auto 6.7 % (1.7-12.0); Neutrophils Absolute Auto 14.5 10^3/uL (1.4-6.5); Neutrophils Percent Auto 84.6 % (43.0-75.0); Platelet Count 270 10^3/uL (150-450); Red Blood Count 4.62 10^6/uL (4.20-5.40); Red Cell Distribution Width 13.2 % (11.0-15.0); White Blood Count 17.1 10^3/uL (4.0-11.0)
--- OUTSIDE RECORDS SUMMARY | 2023-05-07 07:53 | XMS_ITS | CCD ---
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 Name Role Phone Adithya Kenyon Unavailable Unavailable JAYE HOUGH Unavailable Unavailable ADITHYA KENYON Unavailable Unavailable DUGLAS FERNANDEZ Unavailable Unavailable Adithya Kenyon MD Primary Care Provider [phone] Adithya Kenyon MD Primary Care Provider [phone] [...] HOY ., DR HAJI Primary Care Unavailable [place], DR JULES [employer] Unavailable HOY ., [...] Unavailable Adithya Kenyon MD Primary Care Provider [phone] CHANTALE, ADITHYA M Primary Care Unavailable [...] levoFLOXacin; Translations: [LEVOFLOXACIN] Drug Allergy 03-02-2018 Unknown [facility] Other [place] Repository (2 sources) levoFLOXacin Drug Allergy [facility] Repository Medications Current Medications Medication Drug Class(es) Dates Sig (Normalized) Sig (Original) albuterol 0.833 mg/ml / ipratropium bromide 0.167 mg/ml inhalation solution (3 sources) Anticholinergic, beta2-Adrenergic Agonist Ipratropium-Albutero l 0.5-2.5 (3) MG/3ML DIRECTED Inhalation Active nystatin 325824 unt/ml oral suspension (3 sources) Polyene Antifungal [...] mouth. docusate sodium 50 mg / sennosides, residential 8.6 mg oral tablet (15 sources) Start: 05-25-2018 take 2 tablets by mouth every twelve hours as needed senna-docusate (SENOKOT-S) 8.6-50 mg per tablet Take 2 tablets by mouth twice daily as needed. 100 tablet 1 05/25/2018 Active Comment on above: Take 2 tablets by mo [facility] twice daily as needed. 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 Driver and using her nebulizers. She [...] COPD, who is diagnosed with Stage IA3, [id number], non-small cell lung cancer arising from a [...] the chest. She will follow with her field service engineer Dr. Driver to optimize her respiratory function [...] total o (more content not included)... Normal [facility] CNPHiwot 11-18-2022 CNPN Telephone (HEMTSA) LIZETHPHOEBE ([id number]) 1960 F Date Time Provider Department 11/18/22 CED VICTORIA During your visit today, we recorded the following information about you: Ced Victoria RN 11/18/2022 1:43 PM Signed Pt called for CT 11/19/22. [address] reports [address] completed 09/24/22 at [facility]. CT chest verified and will send images/report. LORENZO: Would you like to cancel CT? Please advise LUCIE Baer Saju, MD 11/18/2022 2:11 PM Signed Yes, please cancel CT tomorrow. In addition to the images, please request any office notes from Dr. Kenyon as well as her field service engineer. Thanks! Ced Park RN 11/18/2022 2:50 PM Signed Pt notified, CT canceled. Katerina working on records from Dr Kenyon and Dr Driver. Images/report being pushed from [facility]. LUCIE Baer Ariana, LPN 11/18/2022 3:33 PM [...] Status:Closed by CED VICTORIA on 11/19/22 Normal [facility] CULTURE BLOODon 09-07-2022 Microscopic examination of blood, [...] Trimethoprim/Sulfameth oxazole 20 S F Normal [facility] Comment on above: Performed By: #### B [id number] #### [facility] [address] [address] [address] Geri Pradhan CBC AUTO DIFFon 09-05-2022 BASO # 0.0 103/ul Normal 0.0-0.1 [facility] Comment on above: Performed By: #### C BC #### [facility] [address] [place], [place] [address] Dr. Geri Pradhan Basophils/100 WBC (Bld) 0.2 % Normal 0.2-2.0 [facility] Comment on above: Performed By: #### C BC #### [facility] [address] [address] [address] Geri Pradhan EO # 0.0 103/ul Normal 0.0-0.7 [facility] Comment on above: Performed By: #### C BC #### [facility] [address] [address] [address] Geri Pradhan Eosinophils/100 WBC (Bld) 0.0 % Critically low 0.9-7.0 [facility] Comment on above: Performed By: #### C BC #### [facility] [address] [place] [address] Dr. Geri Pradhan Erythrocyte distribution width (RBC) [Ratio] 13.8 % Normal 11.0-15.0 [facility] Comment on above: Performed By: #### C BC #### [facility] [address] [place] [address] Dr. Geri Pradhan Hematocrit (Bld) [Volume fraction] 38.8 % Normal 36.0-48.0 [facility] Comment on above: Performed By: #### C BC #### [facility] [address] [place] [address] Dr. Geri Pradhan Hemoglobin (Bld) [Mass/Vol] 11.7 g/dL Critically low 12.0-16.0 [facility] Comment on above: Performed By: #### C BC #### [facility] [address] [place] [address] Dr. Geri Pradhan IG # 0.27 10e3/ul Critically high 0.00-0.03 [facility] Comment on above: Performed By: #### C BC #### [facility] [address] [place] [address] Dr. Geri Pradhan IG % 2.9 % Critically high 0.0-0.5 [facility] Comment on above: Performed By: #### C BC #### [facility] [address] [place] [address] Dr. Geri Pradhan LYMPH # 0.4 103/ul Critically low 1.2-3.8 [facility] Comment on above: Performed By: #### C BC #### [facility] [address] [address] [address] Geri Pradhan Lymphocytes/100 WBC (Bld) 4.4 % Critically low 20.5-60.0 [facility] Comment on above: Performed By: #### C BC #### [facility] [address] [place] [address] Dr. Geri Pradhan MANUAL DIFF REQ NO Normal [facility] Comment on above: Performed By: #### C BC #### [facility] [address] [place] [address] Dr. Geri Pradhan MCH (RBC) [Entitic mass] 26.8 pg Normal 26.7-34.0 [facility] Comment on above: Performed By: #### C BC #### [facility] [address] [place] [address] Dr. Geri Pradhan MCHC (RBC) [Mass/Vol] 30.2 g/dL Normal 29.9-35.2 [facility] Comment on above: Performed By: #### C BC #### [facility] [address] [place] [address] Dr. Geri Pradhan MCV (RBC) [Entitic vol] 88.8 fL Normal 81.0-99.0 [facility] Comment on above: Performed By: #### C BC #### [facility] [address] [place] [address] Dr. Geri Pradhan MONO # 0.3 103/ul Normal 0.3-0.8 [facility] Comment on above: Performed By: #### C BC #### [facility] [address] [place] [address] Dr. Geri Pradhan Monocytes/100 WBC (Bld) 3.6 % Normal 1.7-12.0 [facility] Comment on above: Performed By: #### C BC #### [facility] [address] [place] [address] Dr. Geri Pradhan NEUT # 8.2 103/ul Critically high 1.4-6.5 [facility] Comment on above: Performed By: #### C BC #### [facility] [address] [address] [address] Geri Pradhan Neutrophils/100 WBC (Bld) 88.9 % Critically high 43.0-75.0 [facility] Comment on above: Performed By: #### C BC #### [facility] [address] [address] [address] Geri Pradhan Platelet mean volume (Bld) [Entitic vol] 9.1 fL Critically low 9.5-13.5 [facility] Comment on above: Performed By: #### C BC #### [facility] [address] [address] [address] Geri Pradhan PLT 314 103/ul Normal 150-450 [facility] Comment on above: Performed By: #### C BC #### [facility] [address] [place] [address] Dr. Geri Pradhan RBC 4.37 106/ul Normal 4.20-5.40 [facility] Comment on above: Performed By: #### C BC #### [facility] [address] [address] [address] Geri Pradhan WBC 9.2 103/ul Normal 4.0-11.0 [facility] Comment on above: Performed By: #### C BC #### [facility] [address] [place] [address] Dr. Geri Pradhan PROF 14(COMP METB)on 023 Albumin [Mass/Vol] 2.7 g/dL Critically low 3.4-5.0 [facility] Comment on above: Performed By: #### T JUAN JOSE CMP #### [facility] [address] [place] [address] Dr. Geri Pradhan Albumin/Globulin [Mass ratio] 0.7 {ratio} Normal [facility] Comment on above: Performed By: #### Gerry INGRAM CMP #### [facility] [address] [place] [address] Dr. Geri Pradhan ALP [Catalytic activity/Vol] 65 U/L Normal 46-116 [facility] Comment on above: Performed By: #### Gerry INGRAM, CMP #### [facility] [address] [address] [address] Geri Pradhan ALT [Catalytic activity/Vol] 23 U/L Normal 14-59 [facility] Comment on above: Performed By: #### Gerry INGRAM, CMP #### [facility] [address] [address] [address] Geri Pradhan Anion gap [Moles/Vol] 2.0 mmol/L Normal [facility] Comment on above: Performed By: #### Gerry INGRAM, CMP #### [facility] [address] [address] [address] Geri Pradhan AST [Catalytic activity/Vol] 17 U/L Normal 15-37 [facility] Comment on above: Performed By: #### Gerry INGRAM, CMP #### [facility] [address] [place] [address] Dr. Geri Pradhan Bilirubin [Mass/Vol] 0.1 mg/dL Critically low 0.2-1.0 [facility] Comment on above: Performed By: #### Gerry INGRAM, CMP #### [facility] [address] [address] [address] Geri Pradhan Calcium [Mass/Vol] 9.0 mg/dL Normal 8.5-10.1 [facility] Comment on above: Performed By: #### Gerry INGRAM, CMP #### [facility] [address] [place] [address] Dr. Geri Pradhan Chloride [Moles/Vol] 99 mmol/L Normal 98-107 [facility] Comment on above: Performed By: #### Gerry INGRAM, CMP #### [facility] [address] [address] [address] Geri Pradhan CO2 [Moles/Vol] 45.3 mmol/L Critically high 21.0-32.0 [facility] Comment on above: Performed By: #### Gerry INGRAM, CMP #### [facility] [address] [place] [address] Dr. Geri Pradhan Creatinine [Mass/Vol] 0.50 mg/dL Critically low 0.55-1.02 [facility] Comment on above: Performed By: #### Gerry INGRAM, CMP #### [facility] [address] [address] [address] Geri Pradhan EGFR-AF WALLISIAN >60 Normal >=60 [facility] Comment on above: Performed By: #### Gerry INGRAM, CMP #### [facility] [address] [address] [address] Geri Pradhan EGFR-NON AF WALLISIAN >60 Normal >=60 [facility] Comment on above: Performed By: #### Gerry INGRAM, CMP #### [facility] [address] [address] [address] Geri Pradhan Globulin (S) [Mass/Vol] 3.7 g/dL Normal [facility] Comment on above: Performed By: #### Gerry INGRAM, CMP #### [facility] [address] [address] [address] Geri Pradhan Glucose [Mass/Vol] 180 mg/dL Critically high 74-106 [facility] Comment on above: Performed By: #### Gerry INGRAM, CMP #### [facility] [address] [address] [address] Geri Pradhan Potassium [Moles/Vol] 4.3 mmol/L Normal 3.5-5.1 [facility] Comment on above: Performed By: #### Gerry INGRAM, CMP #### [facility] [address] [address] [address] Geri Pradhan Protein [Mass/Vol] 6.4 g/dL Normal 6.4-8.2 [facility] Comment on above: Performed By: #### Gerry INGRAM, CMP #### [facility] [address] [address] [address] Geri Pradhan Sodium [Moles/Vol] 142 mmol/L Normal 136-145 [facility] Comment on above: Performed By: #### Gerry INGRAM, CMP #### [facility] [address] [address] [address] Geri Pradhan Urea nitrogen [Mass/Vol] 13.0 mg/dL Normal 7.0-18.0 [facility] Comment on above: Performed By: #### T JUAN JOSE, CMP #### [facility] [address] [place] [address] Dr. Geri Pradhan Urea nitrogen/Creatinine [Mass ratio] 26.0 mg/mg Normal [facility] Comment on above: Performed By: #### T JUAN JOSE, CMP #### [facility] [address] [place] [address] Dr. Geri Pradhan THEOPHYLLINEon 09-05-2022 THEOPHYLLINE <2.0 Critically low 10.0-20.0 [facility] Comment on above: Performed By: #### T JUAN JOSE CMP #### [facility] [address] [place] [address] Dr. Geri Pradhan CBC AUTO DIFFon 09-04-2022 BASO # 0.0 103/ul Normal 0.0-0.1 [facility] Comment on above: Performed By: #### R SPLUS #### [facility] [address] [place] [address] Dr. Geri Pradhan Basophils/100 WBC (Bld) 0.1 % Critically low 0.2-2.0 [facility] Comment on above: Performed By: #### R SPLUS #### [facility] [address] [place] [address] Dr. Geri Pradhan EO # 0.0 103/ul Normal 0.0-0.7 [facility] Comment on above: Performed By: #### R SPLUS #### [facility] [address] [place] [address] Dr. Geri Pradhan Eosinophils/100 WBC (Bld) 0.0 % Critically low 0.9-7.0 [facility] Comment on above: Performed By: #### R SPLUS #### [facility] [address] [place] [address] Dr. Geri Pradhan Erythrocyte distribution width (RBC) [Ratio] 13.4 % Normal 11.0-15.0 [facility] Comment on above: Performed By: #### R SPLUS #### [facility] [address] [place] [address] Dr. Geri Pradhan Hematocrit (Bld) [Volume fraction] 42.8 % Normal 36.0-48.0 [facility] Comment on above: Performed By: #### R SPLUS #### [facility] [address] [place] [address] Dr. Geri Pradhan Hemoglobin (Bld) [Mass/Vol] 12.8 g/dL Normal 12.0-16.0 [facility] Comment on above: Performed By: #### R SPLUS #### [facility] [address] [place] [address] Dr. Geri Pradhan IG # 0.25 10e3/ul Critically high 0.00-0.03 [facility] Comment on above: Performed By: #### R SPLUS #### [facility] [address] [place] [address] Dr. Geri Pradhan IG % 2.0 % Critically high 0.0-0.5 [facility] Comment on above: Performed By: #### R SPLUS #### [facility] [address] [place] [address] Dr. Geri Pradhan LYMPH # 0.4 103/ul Critically low 1.2-3.[address] [facility] Comment on above: Performed By: #### R SPLUS #### [facility] [address] [place] [address] Dr. Geri Pradhan Lymphocytes/100 WBC (Bld) 3.6 % Critically low 20.5-60.0 [facility] Comment on above: Performed By: #### R SPLUS #### [facility] [address] [place] [address] Dr. Geri Pradhan MANUAL DIFF REQ NO Normal [facility] Comment on above: Performed By: #### R SPLUS #### [facility] [address] [place] [address] Dr. Geri Pradhan MCH (RBC) [Entitic mass] 26.8 pg Normal 26.7-34.0 [facility] Comment on above: Performed By: #### R SPLUS #### [facility] [address] [place] [address] Dr. Geri Pradhan MCHC (RBC) [Mass/Vol] 29.9 g/dL Normal 29.9-35.2 [facility] Comment on above: Performed By: #### R SPLUS #### [facility] [address] [place] [address] Dr. Geri Pradhan MCV (RBC) [Entitic vol] 89.5 fL Normal 81.0-99.0 [facility] Comment on above: Performed By: #### R SPLUS #### [facility] [address] [place] [address] Dr. Geri Pradhan MONO # 0.2 103/ul Critically low 0.3-0.[address] [facility] Comment on above: Performed By: #### R SPLUS #### [facility] [address] [place] [address] Dr. Geri Pradhan Monocytes/100 WBC (Bld) 1.9 % Normal 1.7-12.0 [facility] Comment on above: Performed By: #### R SPLUS #### [facility] [address] [place] [address] Dr. Geri Pradhan NEUT # 11.4 103/ul Critically high 1.4-6.5 [facility] Comment on above: Performed By: #### R SPLUS #### [facility] [address] [place] [address] Dr. Geri Pradhan Neutrophils/100 WBC (Bld) 92.4 % Critically high 43.0-75.0 [facility] Comment on above: Performed By: #### R SPLUS #### [facility] [address] [place] [address] Dr. Geri Pradhan Platelet mean volume (Bld) [Entitic vol] 8.9 fL Critically low 9.5-13.5 [facility] Comment on above: Performed By: #### R SPLUS #### [facility] [address] [place] [address] Dr. Geri Pradhan PLT 350 103/ul Normal 150-450 [facility] Comment on above: Performed By: #### R SPLUS #### [facility] [address] [place] [address] Dr. Geri Pradhan RBC 4.78 106/ul Normal 4.20-5.40 [facility] Comment on above: Performed By: #### R SPLUS #### [facility] [address] [place] [address] Dr. Geri Pradhan WBC 12.3 103/ul Critically high 4.0-11.0 [facility] Comment on above: Performed By: #### R SPLUS #### [facility] [address] [address] [address] Geri Pradhan POINT OF CARE GLUCOSEon 08-12 Glucose [Mass/Vol] 142 mg/dL Critically high 74-106 [facility] Comment on above: Performed By: #### P OCGLUC #### [facility] [address] [place] [address] Dr. Geri Pradhan Glucose [Mass/Vol] 198 mg/dL Critically high 74-106 [facility] Comment on above: Performed By: #### Gerry INGRAM CMP #### [facility] [address] [place] [address] Dr. Geri Pradhan Glucose [Mass/Vol] 147 mg/dL Critically high 74-106 [facility] Comment on above: Performed By: #### Gerry INGRAM CMP #### [facility] [address] [place] [address] Dr. Geri Pradhan PROF 14(COMP METB)on 023 Albumin [Mass/Vol] 2.9 g/dL Critically low 3.4-5.0 [facility] Comment on above: Performed By: #### Gerry INGRAM CMP #### [facility] [address] [place] [address] Dr. Geri Pradhan Albumin/Globulin [Mass ratio] 0.7 {ratio} Normal [facility] Comment on above: Performed By: #### Gerry INGRAM, CMP #### [facility] [address] [place] [address] Dr. Geri Pradhan ALP [Catalytic activity/Vol] 73 U/L Normal 46-116 [facility] Comment on above: Performed By: #### Gerry INGRAM, CMP #### [facility] [address] [address] [address] Geri Pradhan ALT [Catalytic activity/Vol] 24 U/L Normal 14-59 [facility] Comment on above: Performed By: #### Gerry INGRAM, CMP #### [facility] [address] [place] [address] Dr. Geri Pradhan Anion gap [Moles/Vol] 3.2 mmol/L Normal [facility] Comment on above: Performed By: #### Gerry INGRAM, CMP #### [facility] [address] [place] [address] Dr. Geri Pradhan AST [Catalytic activity/Vol] 17 U/L Normal 15-37 [facility] Comment on above: Performed By: #### Gerry INGRAM, CMP #### [facility] [address] [place] [address] Dr. Geri Pradhan Bilirubin [Mass/Vol] 0.1 mg/dL Critically low 0.2-1.0 [facility] Comment on above: Performed By: #### Gerry INGRAM, CMP #### [facility] [address] [place] [address] Dr. Geri Pardhan Calcium [Mass/Vol] 9.4 mg/dL Normal 8.5-10.1 [facility] Comment on above: Performed By: #### Gerry INGRAM, CMP #### [facility] [address] [place] [address] Dr. Geri Pradhan Chloride [Moles/Vol] 100 mmol/L Normal 98-107 [facility] Comment on above: Performed By: #### Gerry INGRAM, CMP #### [facility] [address] [place] [address] Dr. Geri Pradhan CO2 [Moles/Vol] 43.2 mmol/L Critically high 21.0-32.0 [facility] Comment on above: Performed By: #### Gerry INGRAM, CMP #### [facility] [address] [place] [address] Dr. Geri Pradhan Creatinine [Mass/Vol] 0.52 mg/dL Critically low 0.55-1.02 [facility] Comment on above: Performed By: #### Gerry INGRAM, CMP #### [facility] [address] [address] [address] Geri Pradhan EGFR-AF WALLISIAN >60 Normal >=60 [facility] Comment on above: Performed By: #### Gerry INGRAM, CMP #### [facility] [address] [address] [address] Geri Pradhan EGFR-NON AF WALLISIAN >60 Normal >=60 The [facility] Comment on above: Performed By: #### Gerry INGRAM, CMP #### [facility] [address] [address] [address] Geri Pradhan Globulin (S) [Mass/Vol] 4.2 g/dL Normal [facility] Comment on above: Performed By: #### Gerry INGRAM, CMP #### [facility] [address] [address] [address] Geri Pradhan Glucose [Mass/Vol] 138 mg/dL Critically high 74-106 [facility] Comment on above: Performed By: #### Gerry INGRAM, CMP #### [facility] [address] [address] [address] Geri Pradhan Potassium [Moles/Vol] 4.4 mmol/L Normal 3.5-5.1 [facility] Comment on above: Performed By: #### Gerry INGRAM, CMP #### [facility] [address] [address] [address] Geri Pradhan Protein [Mass/Vol] 7.1 g/dL Normal 6.4-8.2 [facility] Comment on above: Performed By: #### Gerry INGRAM, CMP #### [facility] [address] [address] [address] Geri Pradhan Sodium [Moles/Vol] 142 mmol/L Normal 136-145 [facility] Comment on above: Performed By: #### Gerry INGRAM, CMP #### [facility] [address] [address] [address] Geri Pradhan Urea nitrogen [Mass/Vol] 15.0 mg/dL Normal 7.0-18.0 [facility] Comment on above: Performed By: #### Gerry INGRAM, CMP #### [facility] [address] [place] [address] Dr. Geri Pradhan Urea nitrogen/Creatinine [Mass ratio] 28.8 mg/mg Normal [facility] Comment on above: Performed By: #### T JUAN JOSE, CMP #### [facility] [address] [place] [address] Dr. Geri Pradhan RESPIRATORY PANEL PLUSon Adenovirus Not detected Normal NOT DETECTED The [facility] Comment on above: Performed By: #### R SPLUS #### [facility] [address] [place] [address] Dr. Geri Joe. Parapertusis Not detected Normal NOT DETECTED [facility] Comment on above: Performed By: #### R SPLUS #### [facility] [address] [place] [address] Dr. Geri Joe. Pertussis Not detected Normal NOT DETECTED [facility] Comment on above: Performed By: #### R SPLUS #### [facility] [address] [place] [address] Dr. Geri Pradhan Chlamydia Pneumoniae Not detected Normal NOT DETECTED The [facility] Comment on above: Performed By: #### R SPLUS #### [facility] [address] [place] [address] Dr. Geri Pradhan Coronavirus 229E Not detected Normal NOT DETECTED The [facility] Comment on above: Performed By: #### R SPLUS #### [facility] [address] [place] [address] Dr. Geri Pradhan Coronavirus HKU1 Not detected Normal NOT DETECTED The [facility] Comment on above: Performed By: #### R SPLUS #### [facility] [address] [place] [address] Dr. Geri Pradhan Coronavirus NL63 Not detected Normal NOT DETECTED The [facility] Comment on above: Performed By: #### R SPLUS #### [facility] [address] [place] [address] Dr. Geri Pradhan Coronavirus OC43 Not detected Normal NOT DETECTED The [facility] Comment on above: Performed By: #### R SPLUS #### [facility] [address] [address] [address] Geri Pradhan Influenza A H1 Not detected Normal NOT DETECTED [facility] Comment on above: Performed By: #### R SPLUS #### [facility] [address] [address] [address] Geri Pradhan Influenza A H1 2009 Not detected Normal NOT DETECTED [facility] Comment on above: Performed By: #### R SPLUS #### [facility] [address] [address] [address] Geri Pradhan Influenza A H3 Not detected Normal NOT DETECTED [facility] Comment on above: Performed By: #### R SPLUS #### [facility] [address] [place] [address] Dr. Geri Pradhan Influenza B Not detected Normal NOT DETECTED The [facility] Comment on above: Performed By: #### R SPLUS #### [facility] [address] [place] [address] Dr. Geri Pradhan Metapneumovirus Not detected Normal NOT DETECTED [facility] Comment on above: Performed By: #### R SPLUS #### [facility] [address] [place] [address] Dr. Geri Pradhan Mycoplas. Pneumoniae Not detected Normal NOT DETECTED The [facility] Comment on above: Performed By: #### R SPLUS #### [facility] [address] [place] [address] Dr. Geri Pradhan Parainfluenza 1 Not detected Normal NOT DETECTED [facility] Comment on above: Performed By: #### R SPLUS #### [facility] [address] [place] [address] Dr. Geri Pradhan Parainfluenza 2 Not detected Normal NOT DETECTED [facility] Comment on above: Performed By: #### R SPLUS #### [facility] [address] [place] [address] Dr. Geri Pradhan Parainfluenza 3 Detected Abnormal NOT DETECTED The [facility] Comment on above: Performed By: #### R SPLUS #### [facility] [address] [address] [address] Geri Pradhan Parainfluenza 4 Not detected Normal NOT DETECTED [facility] Comment on above: Performed By: #### R SPLUS #### [facility] [address] [place] [address] Dr. Geri Pradhan Rhino/Enterovirus Not detected Normal NOT DETECTED [facility] Comment on above: Performed By: #### R SPLUS #### [facility] [address] [place] [address] Dr. Geri Pradhan RP2 Header 1 RESPIRATORY PANEL: VIRUSES Normal [facility] Comment on above: Performed By: #### R SPLUS #### [facility] [address] [place] [address] Dr. Geri Pradhan RP2 Header 2 RESPIRATORY PANEL: BACTERIA Normal [facility] Comment on above: Performed By: #### R SPLUS #### [facility] [address] [place] [address] Dr. Geri Pradhan RSV Not detected Normal NOT DETECTED The [facility] Comment on above: Performed By: #### R SPLUS #### [facility] [address] [place] [address] Dr. Geri Pradhan SARS-CoV-2 (COVID-19) RNA KRUNAL+probe Ql (Unsp spec) Not detected Normal NOT DETECTED [facility] Comment on above: Performed By: #### R SPLUS #### [facility] [address] [place] [address] Dr. Geri Pradhan THEOPHYLLINEon 09-04-2022 THEOPHYLLINE <2.0 Critically low 10.0-20.0 [facility] Comment on above: Performed By: #### T JUAN JOSE, CMP #### [facility] [address] [place] [address] Dr. Geri Pradhan CBC AUTO DIFFon 09-03-2022 BASO # 0.0 103/ul Normal 0.0-0.1 [facility] Comment on above: Performed By: #### P OCGLUC #### [facility] [address] [place] [address] Dr. Geri Pradhan Basophils/100 WBC (Bld) 0.1 % Critically low 0.2-2.0 [facility] Comment on above: Performed By: #### P OCGLUC #### [facility] [address] [place] [address] Dr. Geri Pradhan EO # 0.0 103/ul Normal 0.0-0.7 [facility] Comment on above: Performed By: #### P OCGLUC #### [facility] [address] [place] [address] Dr. Geri Pradhan Eosinophils/100 WBC (Bld) 0.0 % Critically low 0.9-7.0 [facility] Comment on above: Performed By: #### P OCGLUC #### [facility] [address] [place] [address] Dr. Geri Pradhan Erythrocyte distribution width (RBC) [Ratio] 13.0 % Normal 11.0-15.0 [facility] Comment on above: Performed By: #### P OCGLUC #### [facility] [address] [place] [address] Dr. Geri Pradhan Hematocrit (Bld) [Volume fraction] 42.1 % Normal 36.0-48.0 [facility] Comment on above: Performed By: #### P OCGLUC #### [facility] [address] [place] [address] Dr. Geri Pradhan Hemoglobin (Bld) [Mass/Vol] 12.3 g/dL Normal 12.0-16.0 [facility] Comment on above: Performed By: #### P OCGLUC #### [facility] [address] [place] [address] Dr. Geri Pradhan IG # 0.13 10e3/ul Critically high 0.00-0.03 [facility] Comment on above: Performed By: #### P OCGLUC #### [facility] [address] [place] [address] Dr. Geri Pradhan IG % 1.2 % Critically high 0.0-0.5 [facility] Comment on above: Performed By: #### P OCGLUC #### [facility] [address] [place] [address] Dr. Geri Pradhan LYMPH # 0.6 103/ul Critically low 1.2-3.[address] [facility] Comment on above: Performed By: #### P OCGLUC #### [facility] [address] [place] [address] Dr. Geri Pradhan Lymphocytes/100 WBC (Bld) 6.0 % Critically low 20.5-60.0 [facility] Comment on above: Performed By: #### P OCGLUC #### [facility] [address] [place] [address] Dr. Geri Pradhan MANUAL DIFF REQ NO Normal [facility] Comment on above: Performed By: #### P OCGLUC #### [facility] [address] [place] [address] Dr. Geri Pradhan MCH (RBC) [Entitic mass] 26.0 pg Critically low 26.7-34.0 [facility] Comment on above: Performed By: #### P OCGLUC #### [facility] [address] [place] [address] Dr. Geri Pradhan MCHC (RBC) [Mass/Vol] 29.2 g/dL Critically low 29.9-35.2 [facility] Comment on above: Performed By: #### P OCGLUC #### [facility] [address] [place] [address] Dr. Geri Pradhan MCV (RBC) [Entitic vol] 89.0 fL Normal 81.0-99.0 [facility] Comment on above: Performed By: #### P OCGLUC #### [facility] [address] [place] [address] Dr. Geri Pradhan MONO # 0.2 103/ul Critically low 0.3-0.[address] [facility] Comment on above: Performed By: #### P OCGLUC #### [facility] [address] [place] [address] Dr. Geri Pradhan Monocytes/100 WBC (Bld) 2.0 % Normal 1.7-12.0 [facility] Comment on above: Performed By: #### P OCGLUC #### [facility] [address] [place] [address] Dr. Geri Pradhan NEUT # 9.6 103/ul Critically high 1.4-6.5 [facility] Comment on above: Performed By: #### P OCGLUC #### [facility] [address] [address] [address] Geri Pradhan Neutrophils/100 WBC (Bld) 90.7 % Critically high 43.0-75.0 [facility] Comment on above: Performed By: #### P OCGLUC #### [facility] [address] [address] [address] Geri Pradhan Platelet mean volume (Bld) [Entitic vol] 9.1 fL Critically low 9.5-13.5 [facility] Comment on above: Performed By: #### P OCGLUC #### [facility] [address] [address] [address] Geri Pradhan PLT 302 103/ul Normal 150-450 [facility] Comment on above: Performed By: #### P OCGLUC #### [facility] [address] [address] [address] Geri Pradhan RBC 4.73 106/ul Normal 4.20-5.40 [facility] Comment on above: Performed By: #### P OCGLUC #### [facility] [address] [address] [address] Geri Pradhan WBC 10.6 103/ul Normal 4.0-11.0 [facility] Comment on above: Performed By: #### P OCGLUC #### [facility] [address] [address] [address] Geri Pradhan POINT OF CARE GLUCOSEon 08-12 Glucose [Mass/Vol] 130 mg/dL Critically high 74-106 [facility] Comment on above: Performed By: #### Gerry INGRAM CMP #### [facility] [address] [place] [address] Dr. Geri Pradhan Glucose [Mass/Vol] 217 mg/dL Critically high 74-106 [facility] Comment on above: Performed By: #### T JUAN JOSE CMP #### [facility] [address] [place] [address] Dr. Geri Pradhan Glucose [Mass/Vol] 327 mg/dL Critically high 74-106 [facility] Comment on above: Performed By: #### C VDTBH #### [facility] [address] [address] [address] Geri Pradhan Glucose [Mass/Vol] 146 mg/dL Critically high 74-106 [facility] Comment on above: Performed By: #### T JUAN JOSE, CMP #### [facility] [address] [address] [address] Geri Pradhan Glucose [Mass/Vol] 174 mg/dL Critically high 74-106 [facility] Comment on above: Performed By: #### T JUAN JOSE, CMP #### [facility] [address] [address] [address] Geri Pradhan PROF 14(COMP METB)on 023 Albumin [Mass/Vol] 2.9 g/dL Critically low 3.4-5.0 [facility] Comment on above: Performed By: #### P OCGLUC #### [facility] [address] [place] [address] Dr. Geri Pradhan Albumin/Globulin [Mass ratio] 0.7 {ratio} [facility] Comment on above: Performed By: #### P OCGLUC #### [facility] [address] [place] [address] Dr. Geri Pradhan ALP [Catalytic activity/Vol] 74 U/L Normal 46-116 [facility] Comment on above: Performed By: #### P OCGLUC #### [facility] [address] [place] [address] Dr. Geri Pradhan ALT [Catalytic activity/Vol] 21 U/L Normal 14-59 [facility] Comment on above: Performed By: #### P OCGLUC #### [facility] [address] [address] [address] Geri Pradhan Anion gap [Moles/Vol] 4.4 mmol/L Normal [facility] Comment on above: Performed By: #### P OCGLUC #### [facility] [address] [place] [address] Dr. Geri Pradhan AST [Catalytic activity/Vol] 17 U/L Normal 15-37 [facility] Comment on above: Performed By: #### P OCGLUC #### [facility] [address] [address] [address] Geri Pradhan Bilirubin [Mass/Vol] 0.2 mg/dL Normal 0.2-1.0 [facility] Comment on above: Performed By: #### P OCGLUC #### [facility] [address] [address] [address] Geri Pradhan Calcium [Mass/Vol] 9.4 mg/dL Normal 8.5-10.1 [facility] Comment on above: Performed By: #### P OCGLUC #### [facility] [address] [address] [address] Geri Pradhan Chloride [Moles/Vol] 99 mmol/L Normal 98-107 [facility] Comment on above: Performed By: #### P OCGLUC #### [facility] [address] [address] [address] Geri Pradhan CO2 [Moles/Vol] 42.8 mmol/L Critically high 21.0-32.0 [facility] Comment on above: Performed By: #### P OCGLUC #### [facility] [address] [address] [address] Geri Pradhan Creatinine [Mass/Vol] 0.55 mg/dL Normal 0.55-1.02 [facility] Comment on above: Performed By: #### P OCGLUC #### [facility] [address] [address] [address] Geri Pradhan EGFR-AF WALLISIAN >60 Normal >=60 [facility] Comment on above: Performed By: #### P OCGLUC #### [facility] [address] [place] [address] Dr. Geri Pradhan EGFR-NON AF WALLISIAN >60 Normal >=60 [facility] Comment on above: Performed By: #### P OCGLUC #### [facility] [address] [place] [address] Dr. Geri Pradhan Globulin (S) [Mass/Vol] 4.4 g/dL Normal [facility] Comment on above: Performed By: #### P OCGLUC #### [facility] [address] [address] [address] Geri Pradhan Glucose [Mass/Vol] 136 mg/dL Critically high 74-106 [facility] Comment on above: Performed By: #### P OCGLUC #### [facility] [address] [address] [address] Geri Pradhan Potassium [Moles/Vol] 4.2 mmol/L Normal 3.5-5.1 [facility] Comment on above: Performed By: #### P OCGLUC #### [facility] [address] [address] [address] Geri Pradhan Protein [Mass/Vol] 7.3 g/dL Normal 6.4-8.2 [facility] Comment on above: Performed By: #### P OCGLUC #### [facility] [address] [address] [address] Geri Pradhan Sodium [Moles/Vol] 142 mmol/L Normal 136-145 [facility] Comment on above: Performed By: #### P OCGLUC #### [facility] [address] [address] [address] Geri Pradhan Urea nitrogen [Mass/Vol] 14.0 mg/dL Normal 7.0-18.0 [facility] Comment on above: Performed By: #### P OCGLUC #### [facility] [address] [address] [address] Geri Pradhan Urea nitrogen/Creatinine [Mass ratio] 25.5 mg/mg Normal [facility] Comment on above: Performed By: #### P OCGLUC #### [facility] [address] [address] [address] Geri Pradhan THEOPHYLLINEon 09-03-2022 THEOPHYLLINE <2.0 Critically low 10.0-20.0 [facility] Comment on above: Performed By: #### P OCGLUC #### [facility] [address] [address] [address] Geri Pradhan MAGNESIUMon 09-02-2022 Magnesium [Mass/Vol] 2.3 mg/dL Normal 1.8-2.4 [facility] Comment on above: Performed By: #### Gerry INGRAM, CMP #### [facility] [address] [place] [address] Dr. Geri Pradhan POINT OF CARE GLUCOSEon 08-12 Glucose [Mass/Vol] 118 mg/dL Critically high 74-106 [facility] Comment on above: Performed By: #### R SPLUS #### [facility] [address] [address] [address] Geri Pradhan Glucose [Mass/Vol] 263 mg/dL Critically high 74-106 [facility] Comment on above: Performed By: #### R SPLUS #### [facility] [address] [place] [address] Dr. Geri Pradhan Glucose [Mass/Vol] 160 mg/dL Critically high 74-106 [facility] Comment on above: Performed By: #### P OCGLUC #### [facility] [address] [place] [address] Dr. Geri Pradhan PROF CHEM 8 (BAS METB)on Anion gap [Moles/Vol] 5.3 mmol/L Normal [facility] Comment on above: Performed By: #### Gerry INGRAM, CMP #### [facility] [address] [place] [address] Dr. Geri Pradhan Calcium [Mass/Vol] 9.5 mg/dL Normal 8.5-10.1 [facility] Comment on above: Performed By: #### Gerry INGRAM, CMP #### [facility] [address] [place] [address] Dr. Geri Pradhan Chloride [Moles/Vol] 94 mmol/L Critically low 98-107 [facility] Comment on above: Performed By: #### Gerry INGRAM, CMP #### [facility] [address] [place] [address] Dr. Geri Pradhan CO2 [Moles/Vol] 42.5 mmol/L Critically high 21.0-32.0 [facility] Comment on above: Performed By: #### Gerry INGRAM, CMP #### [facility] [address] [address] [address] Geri Pradhan Creatinine [Mass/Vol] 0.66 mg/dL Normal 0.55-1.02 [facility] Comment on above: Performed By: #### Gerry INGRAM, CMP #### [facility] [address] [address] [address] Geri Pradhan EGFR-AF WALLISIAN >60 Normal >=60 [facility] Comment on above: Performed By: #### Gerry INGRAM, CMP #### [facility] [address] [address] [address] Geri Pradhan EGFR-NON AF WALLISIAN >60 Normal >=60 [facility] Comment on above: Performed By: #### Gerry INGRAM, CMP #### [facility] [address] [address] [address] Geri Pradhan Glucose [Mass/Vol] 183 mg/dL Critically high 74-106 [facility] Comment on above: Performed By: #### Gerry INGRAM, CMP #### [facility] [address] [address] [address] Geri Pradhan Potassium [Moles/Vol] 3.8 mmol/L Normal 3.5-5.1 [facility] Comment on above: Performed By: #### Gerry INGRAM, CMP #### [facility] [address] [address] [address] Geri Pradhan Sodium [Moles/Vol] 138 mmol/L Normal 136-145 [facility] Comment on above: Performed By: #### Gerry INGRAM, CMP #### [facility] [address] [address] [address] Geri Pradhan Urea nitrogen [Mass/Vol] 10.0 mg/dL Normal 7.0-18.0 [facility] Comment on above: Performed By: #### Gerry INGRAM, CMP #### [facility] [address] [address] [address] Geri Pradhan Urea nitrogen/Creatinine [Mass ratio] 15.2 mg/mg Normal [facility] Comment on above: Performed By: #### Gerry INGRAM, CMP #### [facility] [address] [address] [address] Geri Pradhan THEOPHYLLINEon 09-02-2022 THEOPHYLLINE <2.0 Critically low 10.0-20.0 [facility] Comment on above: Performed By: #### R DUANEUS #### [facility] [address] [address] [address] Geri Pradhan BLOOD CULTURE ID PANELon A. baumannii Not detected Normal NOT DETECTED [facility] Comment on above: Performed By: #### Gerry INGRAM CMP #### [facility] [address] [address] [address] Geri Pradhan Bacteriodes fragilis Not detected Normal NOT DETECTED [facility] Comment on above: Performed By: #### Gerry INGRAM CMP #### [facility] [address] [place] [address] Dr. Geri BRINK CONTROLS PASSED Normal [facility] Comment on above: Performed By: #### Gerry INGRAM CMP #### [facility] [address] [address] [address] Geri GARCÍADBTHD BLOOD CULTURE BOTTLE INFORMATION Normal The [facility] Comment on above: Performed By: #### Gerry INGRAM CMP #### [facility] [address] [place] [address] Dr. Geri Pradhan BCIDHD1 ANTIMICROBIAL RESISTANCE GENES Normal [facility] Comment on above: Performed By: #### Gerry INGRAM CMP #### [facility] [address] [place] [address] Dr. Geri Pradhan BCIDHD2 SEE BELOW Normal [facility] Comment on above: Result Comment: Note : Antimicrobial resitance can occur via multiple mechanisms. A Not Detected result for the [employer] antomicrobial resistance gene assays does not indicate antimicrobial susceptibility. Subculturing is required for species identification and susceptibility testing of isolates. Performed By: #### Gerry INGRAM CMP #### [facility] [address] [place] [address] Dr. Geri Pradhan BCIDHD3 Positive Normal [facility] Comment on above: Performed By: #### Gerry INGRAM CMP #### [facility] [address] [address] [address] Geri Pradhan BCIDHD4 Negative Normal The [facility] Comment on above: Performed By: #### T JUAN JOSE, CMP #### [facility] [address] [address] [address] Geri Pradhan BCIDHD5 YEAST Normal [facility] Comment on above: Performed By: #### Gerry INGRAM, CMP #### [facility] [address] [address] [address] Geri Pradhan Bottle Set: Set 1 Normal [facility] Comment on above: Performed By: #### Gerry INGRAM, CMP #### [facility] [address] [address] [address] Geri Pradhan Bottle: Aerobic Normal [facility] Comment on above: Performed By: #### Gerry INGRAM, CMP #### [facility] [address] [place] [address] Dr. Geri Pradhan C. neoformans/gattii Not detected Normal NOT DETECTED The [facility] Comment on above: Performed By: #### Gerry INGRAM, CMP #### [facility] [address] [place] [address] Dr. Geri Pradhan Milagros albicans Not detected Normal NOT DETECTED The [facility] Comment on above: Performed By: #### Gerry INGRAM, CMP #### [facility] [address] [place] [address] Dr. Geri Pradhan Milagros auris Not detected Normal NOT DETECTED The [facility] Comment on above: Performed By: #### Gerry INGRAM, CMP #### [facility] [address] [place] [address] Dr. Geri Pradhan Milagros glabrata Not detected Normal NOT DETECTED The [facility] Comment on above: Performed By: #### T JUAN JOSE, CMP #### [facility] [address] [address] [address] Geri Pradhan Milagros Krusei Not detected Normal NOT DETECTED The [facility] Comment on above: Performed By: #### T JUAN JOSE, CMP #### [facility] [address] [place] [address] Dr. Geri Pradhan Milagros Parapsilosis Not detected Normal NOT DETECTED The [facility] Comment on above: Performed By: #### T JUAN JOSE, CMP #### [facility] [address] [place] [address] Dr. Geri Pradhan Milagros Tropicalis Not detected Normal NOT DETECTED [facility] Comment on above: Performed By: #### T JUAN JOSE, CMP #### [facility] [address] [address] [address] Geri Pradhan CTX-M Resistant Gene Not Applicable Normal NOT DETECTE D [facility] Comment on above: Performed By: #### T JUAN JOSE, CMP #### [facility] [address] [address] [address] Geri Pradhan E. Cloacae complex Not detected Normal NOT DETECTED [facility] Comment on above: Performed By: #### T JUAN JOSE, CMP #### [facility] [address] [place] [address] Dr. Geri Pradhan E. faecalis Not detected Normal NOT DETECTED The [facility] Comment on above: Performed By: #### T JUAN JOSE, CMP #### [facility] [address] [place] [address] Dr. Geri Pradhan E. faecium Not detected Normal NOT DETECTED The [facility] Comment on above: Performed By: #### T JUAN JOSE, CMP #### [facility] [address] [place] [address] Dr. Geri Pradhan Enterobacteriaceae Not detected Normal NOT DETECTED [facility] Comment on above: Performed By: #### T JUAN JOSE, CMP #### [facility] [address] [place] [address] Dr. Geri Pradhan Escherichia coli Not detected Normal NOT DETECTED The [facility] Comment on above: Performed By: #### T JUAN JOSE, CMP #### [facility] [address] [place] [address] Dr. Geri Pradhan H. influenzae Not detected Normal NOT DETECTED The [facility] Comment on above: Performed By: #### T JUAN JOSE, CMP #### [facility] [address] [place] [address] Dr. Geri Pradhan IMP Resistant Gene Not Applicable Normal NOT DETECTED The [facility] Comment on above: Performed By: #### T JUAN JOSE, CMP #### [facility] [address] [place] [address] Dr. Geri Pradhan K. oxytoca Not detected Normal NOT DETECTED The [facility] Comment on above: Performed By: #### T JUAN JOSE, CMP #### [facility] [address] [address] [address] Geri Pradhan K. pneumoniae Not detected Normal NOT DETECTED The [facility] Comment on above: Performed By: #### T JUAN JOSE, CMP #### [facility] [address] [place] [address] Dr. Geri Pradhan Klebsiella aerogenes Not detected Normal NOT DETECTED The [facility] Comment on above: Performed By: #### T JUAN JOSE, CMP #### [facility] [address] [place] [address] Dr. Geri Pradhan KPC Resistant Gene Not Applicable Normal NOT DETECTED The [facility] Comment on above: Performed By: #### T JUAN JOSE, CMP #### [facility] [address] [place] [address] Dr. Geri Pradhan List. monocytogenes Not detected Normal NOT DETECTED The [facility] Comment on above: Performed By: #### T JUAN JOSE, CMP #### [facility] [address] [place] [address] Dr. Geri Pradhan Mcr-1 Resistant Gene Not Applicable Normal NOT DETECTE D [facility] Comment on above: Performed By: #### T JUAN JOSE, CMP #### [facility] [address] [place] [address] Dr. Geri Pradhan mecA/C Detected Abnormal NOT DETECTED The [facility] Comment on above: Performed By: #### T JUAN JOSE, CMP #### [facility] [address] [place] [address] Dr. Geri Pradhan mecA/C MREJ Not Applicable Normal NOT DETECTED The [facility] Comment on above: Performed By: #### T JUAN JOSE, CMP #### [facility] [address] [place] [address] Dr. Geri Pradhan N. meningitidis Not detected Normal NOT DETECTED The [facility] Comment on above: Performed By: #### T JUAN JOSE, CMP #### [facility] [address] [address] [address] Geri Pradhan NDM Resistant Gene Not Applicable Normal NOT DETECTED The [facility] Comment on above: Performed By: #### T JUAN JOSE, CMP #### [facility] [address] [address] [address] Geri Pradhan Oxa-48-like Not Applicable Normal NOT DETECTED The [facility] Comment on above: Performed By: #### T JUAN JOSE, CMP #### [facility] [address] [address] [address] Geri Pradhan Proteus Not detected Normal NOT DETECTED The [facility] Comment on above: Performed By: #### T JUAN JOSE, CMP #### [facility] [address] [place] [address] Dr. Geri Pradhan Pseud. aeruginosa Not detected Normal NOT DETECTED The [facility] Comment on above: Performed By: #### T JUAN JOSE, CMP #### [facility] [address] [place] [address] Dr. Geri Pradhan S. maltophilia Not detected Normal NOT DETECTED The [facility] Comment on above: Performed By: #### T JUAN JOSE, CMP #### [facility] [address] [place] [address] Dr. Geri Pradhan Salmonella Not detected Normal NOT DETECTED The [facility] Comment on above: Performed By: #### T JUAN JOSE, CMP #### [facility] [address] [place] [address] Dr. Geri Pradhan Seratia marcescens Not detected Normal NOT DETECTED [facility] Comment on above: Performed By: #### T JUAN JOSE, CMP #### [facility] [address] [place] [address] Dr. Geri Pradhan Site: Right AC Normal The [facility] Comment on above: Performed By: #### T JUAN JOSE, CMP #### [facility] [address] [place] [address] Dr. Geri Pradhan Staph. aureus Not detected Normal NOT DETECTED The [facility] Comment on above: Performed By: #### T JUAN JOSE, CMP #### [facility] [address] [place] [address] Dr. Geri Pradhan Staph. epidermidis Detected Critically abnormal NOT DETECTED [facility] Comment on above: Performed By: #### T JUAN JOSE, CMP #### [facility] [address] [place] [address] Dr. Geri Pradhan Staph. lugdunensis Not detected Normal NOT DETECTED [facility] Comment on above: Performed By: #### T JUAN JOSE, CMP #### [facility] [address] [place] [address] Dr. Geri Pradhan Staphylococcus Detected Critically abnormal NOT DETECTED [facility] Comment on above: Performed By: #### T JUAN JOSE, CMP #### [facility] [address] [place] [address] Dr. Geri Pradhan Strep. agalactiae Not detected Normal NOT DETECTED The [facility] Comment on above: Performed By: #### T JUAN JOSE, CMP #### [facility] [address] [place] [address] Dr. Geri Pradhan Strep. pneumoniae Not detected Normal NOT DETECTED [facility] Comment on above: Performed By: #### T JUAN JOSE, CMP #### [facility] [address] [place] [address] Dr. Geri Pradhan Strep. pyogenes Not detected Normal NOT DETECTED [facility] Comment on above: Performed By: #### T JUAN JOSE, CMP #### [facility] [address] [place] [address] Dr. Geri Pradhan Streptococcus Not detected Normal NOT DETECTED The [facility] Comment on above: Performed By: #### T JUAN JOSE, CMP #### [facility] [address] [place] [address] Dr. Geri Pradhan Amrit/B Resist. Gene Not Applicable Normal NOT DETECTED [facility] Comment on above: Performed By: #### T JUAN JOSE, CMP #### [facility] [address] [place] [address] Dr. Geri Pradhan VIM Resistant Gene Not Applicable Normal NOT DETECTED [facility] Comment on above: Performed By: #### T JUAN JOSE, CMP #### [facility] [address] [place] [address] Dr. Geri Pradhan [facility] 02 MODE NASAL CANNULA [facility] Comment on above: Performed By: #### R SPLUS #### [facility] [address] [place] [address] Dr. Geri Pradhan ALLENS TEST Positive [facility] Comment on above: Performed By: #### R SPLUS #### [facility] [address] [address] [address] Geri Pradhan Base excess Calc (Bld) [Moles/Vol] 22.8 mmol/L Critically high -2.0-2.0 [facility] Comment on above: Performed By: #### R SPLUS #### [facility] [address] [place] [address] Dr. Geri Pradhan BIPAP PRESSURE [facility] Comment on above: Performed By: #### R SPLUS #### [facility] [address] [place] [address] Dr. Geri Pradhan CPAP [facility] Comment on above: Performed By: #### R SPLUS #### [facility] [address] [address] [address] Geri Pradhan FIO2 [facility] Comment on above: Performed By: #### R SPLUS #### [facility] [address] [place] [address] Dr. Geri Pradhan HCO3 (Bld) [Moles/Vol] 47.1 mmol/L Critically high 22.0-26 .0 [facility] Comment on above: Performed By: #### R SPLUS #### [facility] [address] [place] [address] Dr. Geri Pradhan LPM 2.5 [facility] Comment on above: Performed By: #### R SPLUS #### [facility] [address] [place] [address] Dr. Geri Pradhan MINUTE VOLUME Normal [facility] Comment on above: Performed By: #### R SPLUS #### [facility] [address] [address] [address] Geri Pradhan Oxygen (Bld) [Partial pressure] 95.8 mm[Hg] Normal 80.0-100.0 [facility] Comment on above: Performed By: #### R SPLUS #### [facility] [address] [place] [address] Dr. Geri Pradhan Oxygen saturation in Blood 98.0 % Normal 95.0-100.0 [facility] Comment on above: Performed By: #### R SPLUS #### [facility] [address] [place] [address] Dr. Geri Pradhan PCO2 71.5 mmHg Critically high 35.0-45.0 [facility] Comment on above: Performed By: #### R SPLUS #### [facility] [address] [place] [address] Dr. Geri Pradhan [facility] Comment on above: Performed By: #### R SPLUS #### [facility] [address] [place] [address] Dr. Geri Pradhan pH (Bld) 7.428 [pH] Normal 7.350-7.450 [facility] Comment on above: Performed By: #### R SPLUS #### [facility] [address] [place] [address] Dr. Geri Pradhan PIP [facility] Comment on above: Performed By: #### R SPLUS #### [facility] [address] [place] [address] Dr. Geri Pradhan PS [facility] Comment on above: Performed By: #### R SPLUS #### [facility] [address] [address] [address] Geri Pradhan PUNCTURE SITE RR [facility] Comment on above: Performed By: #### R SPLUS #### [facility] [address] [place] [address] Dr. Geri Pradhan RATE [facility] Comment on above: Performed By: #### R SPLUS #### [facility] [address] [address] [address] Geri Pradhan VENT MODE Normal [facility] Comment on above: Performed By: #### R SPLUS #### [facility] [address] [place] [address] Dr. Geri Pradhan [facility] Comment on above: Performed By: #### R SPLUS #### [facility] [address] [place] [address] Dr. Geri Pradhan BNPon 09-01-2022 Natriuretic peptide B (Bld) [Mass/Vol] 143.0 pg/mL Normal <=900.0 [facility] Comment on above: Performed By: #### R SPLUS #### [facility] [address] [place] [address] Dr. Geri Pradhan CARDIAC BRAYAN ADMITon 023 CK [Catalytic activity/Vol] 21 U/L Critically low 26-192 [facility] Comment on above: Performed By: #### R SPLUS #### [facility] [address] [place] [address] Dr. Geri Pradhan CK.MB [Mass/Vol] 0.78 ng/mL Normal <=3.60 [facility] Comment on above: Performed By: #### R SPLUS #### [facility] [address] [place] [address] Dr. Geri Pradhan HSTROP 6.9 pg/mL Normal 4.0-51.3 [facility] Comment on above: Result Comment: CUT- OFF POINTS HAVE BEEN ESTABLISHED BASED ON THE FOURTH UNIVERSAL DEFINITIONS OF MYOCARDIAL INFARCTION. THE UPPER REFERENCE LIMIT (URL) OF TROPONIN, DEFINED THE 99TH PERCENTILE OF cTnI DISTRIBUTION IN A REFERENCE POPULATION, HAS BEEN CONFIRMED THE DECISION THRESHOLD FOR ND DIAGNOSIS. Performed By: #### R SPLUS #### [facility] [address] [place] [address] Dr. Geri Pradhan VIN 20 ng/mL Normal 9-82 [facility] Comment on above: Performed By: #### R SPLUS #### [facility] [address] [place] [address] Dr. Geri Pradhan CBC AUTO DIFFon 09-01-2022 BASO # 0.0 103/ul Normal 0.0-0.1 [facility] Comment on above: Performed By: #### C BC #### [facility] [address] [place] [address] Dr. Geri Pradhan Basophils/100 WBC (Bld) 0.2 % Normal 0.2-2.0 [facility] Comment on above: Performed By: #### C BC #### [facility] [address] [place] [address] Dr. Geri Pradhan EO # 0.1 103/ul Normal 0.0-0.7 [facility] Comment on above: Performed By: #### C BC #### [facility] [address] [place] [address] Dr. Geri Pradhan Eosinophils/100 WBC (Bld) 1.5 % Normal 0.9-7.0 [facility] Comment on above: Performed By: #### C BC #### [facility] [address] [place] [address] Dr. Geri Pradhan Erythrocyte distribution width (RBC) [Ratio] 12.8 % Normal 11.0-15.0 [facility] Comment on above: Performed By: #### C BC #### [facility] [address] [place] [address] Dr. Geri Pradhan Hematocrit (Bld) [Volume fraction] 41.8 % Normal 36.0-48.0 [facility] Comment on above: Performed By: #### C BC #### [facility] [address] [place] [address] Dr. Geri Pradhan Hemoglobin (Bld) [Mass/Vol] 13.1 g/dL Normal 12.0-16.0 [facility] Comment on above: Performed By: #### C BC #### [facility] [address] [place] [address] Dr. Geri Pradhan IG # 0.05 10e3/ul Critically high 0.00-0.03 [facility] Comment on above: Performed By: #### C BC #### [facility] [address] [place] [address] Dr. Geri Pradhan IG % 0.5 % Normal 0.0-0.5 [facility] Comment on above: Performed By: #### C BC #### [facility] [address] [place] [address] Dr. Geri Pradhan LYMPH # 2.4 103/ul Normal 1.2-3.8 [facility] Comment on above: Performed By: #### C BC #### [facility] [address] [place] [address] Dr. Geri Pradhan Lymphocytes/100 WBC (Bld) 24.9 % Normal 20.5-60.0 [facility] Comment on above: Performed By: #### C BC #### [facility] [address] [place] [address] Dr. Geri Pradhan MANUAL DIFF REQ NO Normal [facility] Comment on above: Performed By: #### C BC #### [facility] [address] [place] [address] Dr. Geri Pradhan MCH (RBC) [Entitic mass] 27.2 pg Normal 26.7-34.0 [facility] Comment on above: Performed By: #### C BC #### [facility] [address] [place] [address] Dr. Geri Pradhan MCHC (RBC) [Mass/Vol] 31.3 g/dL Normal 29.9-35.2 [facility] Comment on above: Performed By: #### C BC #### [facility] [address] [place] [address] Dr. Geri Pradhan MCV (RBC) [Entitic vol] 86.7 fL Normal 81.0-99.0 [facility] Comment on above: Performed By: #### C BC #### [facility] [address] [place] [address] Dr. Geri Pradhan MONO # 0.9 103/ul Critically high 0.3-0.8 [facility] Comment on above: Performed By: #### C BC #### [facility] [address] [place] [address] Dr. Geri Pradhan Monocytes/100 WBC (Bld) 8.9 % Normal 1.7-12.0 [facility] Comment on above: Performed By: #### C BC #### [facility] [address] [address] [address] Geri Pradhan NEUT # 6.1 103/ul Normal 1.4-6.5 [facility] Comment on above: Performed By: #### C BC #### [facility] [address] [place] [address] Dr. Geri Pradhan Neutrophils/100 WBC (Bld) 64.0 % Normal 43.0-75.0 [facility] Comment on above: Performed By: #### C BC #### [facility] [address] [place] [address] Dr. Geri Pradhan Platelet mean volume (Bld) [Entitic vol] 9.2 fL Critically low 9.5-13.5 [facility] Comment on above: Performed By: #### C BC #### [facility] [address] [place] [address] Dr. Geri Pradhan PLT 349 103/ul Normal 150-450 [facility] Comment on above: Performed By: #### C BC #### [facility] [address] [place] [address] Dr. Geri Pradhan RBC 4.82 106/ul Normal 4.20-5.40 [facility] Comment on above: Performed By: #### C BC #### [facility] [address] [place] [address] Dr. Geri Pradhan WBC 9.5 103/ul Normal 4.0-11.0 [facility] Comment on above: Performed By: #### C BC #### [facility] [address] [place] [address] Dr. Geri Pradhan CULTURE BLOODon 09-01-2022 Microscopic examination of blood, culture Culture Observations: NO GROWTH AT 5 DAYS. Normal [facility] Comment on above: Performed By: #### P OCGLUC #### [facility] [address] [place] [address] Dr. Geri Pradhan CULTURE URINEon 09-01-2022 CULTURE URINE Culture Observations : EDUARDO TO FOLLOW. Isolate 1 Pseudomonas aeruginosa 10,000 cfu/mL of Normal [facility] Comment on above: Performed By: #### P OCGLUC #### [facility] [address] [address] [address] Geri MARQUEZ URINE PROFILEon 3 Bilirubin Ql (U) Negative Normal NEGATIVE [facility] Comment on above: Performed By: #### P OCGLUC #### [facility] [address] [place] [address] Dr. Geri Pradhan Clarity (U) CLEAR Normal CLEAR [facility] Comment on above: Performed By: #### P OCGLUC #### [facility] [address] [place] [address] Dr. Geri Pradhan Color (U) LT. YELLOW Normal YELLOW [facility] Comment on above: Performed By: #### P OCGLUC #### [facility] [address] [place] [address] Dr. Geri HUNT A micrscopic examination will be performed if indicated. Normal [facility] Comment on above: Performed By: #### P OCGLUC #### [facility] [address] [place] [address] Dr. Geri Pradhan Glucose Ql (U) Negative Normal NEGATIVE [facility] Comment on above: Performed By: #### P OCGLUC #### [facility] [address] [place] [address] Dr. Geri Pradhan Hemoglobin Ql (U) TRACE-INTACT Abnormal NEGATIVE [facility] Comment on above: Performed By: #### P OCGLUC #### [facility] [address] [place] [address] Dr. Geri Pradhan Ketones Ql (U) Negative Normal NEGATIVE [facility] Comment on above: Performed By: #### P OCGLUC #### [facility] [address] [place] [address] Dr. Geri Pradhan LEUKOCYTES MODERATE Abnormal NEGATIVE [facility] Comment on above: Performed By: #### P OCGLUC #### [facility] [address] [place] [address] Dr. Geri Pradhan Nitrite Ql (U) Negative Normal NEGATIVE [facility] Comment on above: Performed By: #### P OCGLUC #### [facility] [address] [place] [address] Dr. Geri Pradhan pH (U) 6.5 [pH] Normal 5-9 [facility] Comment on above: Performed By: #### P OCGLUC #### [facility] [address] [address] [address] Geri Pradhan SPEC GRAVITY 1.010 Normal 1.005-<=1.02 5 [facility] Comment on above: Performed By: #### P OCGLUC #### [facility] [address] [address] [address] Geri Pradhan UA PROTEIN Negative Normal NEGATIVE/ TRACE [facility] Comment on above: Performed By: #### P OCGLUC #### [facility] [address] [place] [address] Dr. Geri Pradhan UR MICRO IND INDICATED Normal [facility] Comment on above: Performed By: #### P OCGLUC #### [facility] [address] [place] [address] Dr. Geri Pradhan Urobilinogen Qn (U) 0.2 {Lelia'U}/dL Normal 0.2 - 1. 0 [facility] Comment on above: Performed By: #### P OCGLUC #### [facility] [address] [place] [address] Dr. Geri Pradhan LACTATE/LACTIC ACIDon 2022 Lactate [Moles/Vol] 0.7 mmol/L Normal 0.4-2.0 [facility] Comment on above: Performed By: #### T JUAN JOSE, CMP #### [facility] [address] [place] [address] Dr. Geri Pradhan PROF 14(COMP METB)on 023 Albumin [Mass/Vol] 3.3 g/dL Critically low 3.4-5.0 [facility] Comment on above: Performed By: #### P OCGLUC #### [facility] [address] [place] [address] Dr. Geri Pradhan Albumin/Globulin [Mass ratio] 0.7 {ratio} Normal [facility] Comment on above: Performed By: #### P OCGLUC #### [facility] [address] [address] [address] Geri Pradhan ALP [Catalytic activity/Vol] 81 U/L Normal 46-116 [facility] Comment on above: Performed By: #### P OCGLUC #### [facility] [address] [address] [address] Geri Pradhan ALT [Catalytic activity/Vol] 19 U/L Normal 14-59 [facility] Comment on above: Performed By: #### P OCGLUC #### [facility] [address] [address] [address] Geri Pradhan Anion gap [Moles/Vol] 3.1 mmol/L Normal [facility] Comment on above: Performed By: #### P OCGLUC #### [facility] [address] [address] [address] Geri Pradhan AST [Catalytic activity/Vol] 16 U/L Normal 15-37 [facility] Comment on above: Performed By: #### P OCGLUC #### [facility] [address] [address] [address] Geri Pradhan Bilirubin [Mass/Vol] 0.2 mg/dL Normal 0.2-1.0 [facility] Comment on above: Performed By: #### P OCGLUC #### [facility] [address] [address] [address] Geri Pradhan Calcium [Mass/Vol] 9.8 mg/dL Normal 8.5-10.1 [facility] Comment on above: Performed By: #### P OCGLUC #### [facility] [address] [address] [address] Geri Pradhan Chloride [Moles/Vol] 93 mmol/L Critically low 98-107 [facility] Comment on above: Performed By: #### P OCGLUC #### [facility] [address] [address] [address] Geri Pradhan CO2 [Moles/Vol] 45.3 mmol/L Critically high 21.0-32.0 [facility] Comment on above: Performed By: #### P OCGLUC #### [facility] [address] [address] [address] eGri Pradhan Creatinine [Mass/Vol] 0.51 mg/dL Critically low 0.55-1.02 [facility] Comment on above: Performed By: #### P OCGLUC #### [facility] [address] [address] [address] Geri Pradhan EGFR-AF WALLISIAN >60 Normal >=60 [facility] Comment on above: Performed By: #### P OCGLUC #### [facility] [address] [address] [address] Geri Pradhan EGFR-NON AF WALLISIAN >60 Normal >=60 [facility] Comment on above: Performed By: #### P OCGLUC #### [facility] [address] [address] [address] Geri Pradhan Globulin (S) [Mass/Vol] 4.8 g/dL Normal [facility] Comment on above: Performed By: #### P OCGLUC #### [facility] [address] [address] [address] Geri Pradhan Glucose [Mass/Vol] 98 mg/dL Normal 74-106 [facility] Comment on above: Performed By: #### P OCGLUC #### [facility] [address] [address] [address] Geri Pradhan Potassium [Moles/Vol] 3.4 mmol/L Critically low 3.5-5.1 [facility] Comment on above: Performed By: #### P OCGLUC #### [facility] [address] [address] [address] Geri Pradhan Protein [Mass/Vol] 8.1 g/dL Normal 6.4-8.2 [facility] Comment on above: Performed By: #### P OCGLUC #### [facility] [address] [address] [address] Geri Pradhan Sodium [Moles/Vol] 138 mmol/L Normal 136-145 [facility] Comment on above: Performed By: #### P OCGLUC #### [facility] [address] [place] [address] Dr. Geri Pradhan Urea nitrogen [Mass/Vol] 11.0 mg/dL Normal 7.0-18.0 [facility] Comment on above: Performed By: #### P OCGLUC #### [facility] [address] [place] [address] Dr. Geri Pradhan Urea nitrogen/Creatinine [Mass ratio] 21.6 mg/mg Normal [facility] Comment on above: Performed By: #### P OCGLUC #### [facility] [address] [place] [address] Dr. Geri Pradhan PROTIMEon 09-01-2022 INR Coag (PPP) [Relative time] 0.96 {INR} Normal [facility] Comment on above: Performed By: #### T JUAN JOSE CMP #### [facility] [address] [place] [address] Dr. Geri Pradhan INR GUIDELINES SEE BELOW Normal [facility] Comment on above: Result Comment: KAROL RED INR: 2.0 - 3.0 CONDITIONS NOT LISTED BELOW 2.5 - 3.5 FOR PROSTHETIC HEART VALVE REPLACEMENT 2.5 - 3.5 RECURRENT THROMBOSIS Performed By: #### Gerry INGRAM CMP #### [facility] [address] [place] [address] Dr. Geri Pradhan PT Coag (PPP) [Time] 10.2 s Normal 9.0-11.6 [facility] Comment on above: Performed By: #### Gerry INGRAM CMP #### [facility] [address] [place] [address] Dr. Geri Pradhan PTTon 09-01-2022 aPTT Coag (Bld) [Time] 25.5 s Normal 22.3-36.2 [facility] Comment on above: Performed By: #### Gerry INGRAM, CMP #### [facility] [address] [place] [address] Dr. Geri Pradhan URINE MICROSCOPIC ONLYon BACTERIA NONE SEEN Normal NONE SEEN The [facility] Comment on above: Performed By: #### P OCGLUC #### [facility] [address] [place] [address] Dr. Geri Pradhan Bacteria identified Cx Nom (U) INDICATED Normal [facility] Comment on above: Performed By: #### P OCGLUC #### [facility] [address] [place] [address] Dr. Geri Pradhan CAST NONE SEEN Normal NONE SEEN [facility] Comment on above: Performed By: #### P OCGLUC #### [facility] [address] [place] [address] Dr. Geri Pradhan Crystals LM Nom (Urine sed) NONE SEEN Normal NONE SEEN The [facility] Comment on above: Performed By: #### P OCGLUC #### [facility] [address] [place] [address] Dr. Geri Pradhan Epithelial cells LM Ql (Urine sed) FEW Abnormal NONE SEEN /RARE [facility] Comment on above: Performed By: #### P OCGLUC #### [facility] [address] [place] [address] Dr. Geri Pradhan MUCOUS NONE SEEN Normal NONE SEEN [facility] Comment on above: Performed By: #### P OCGLUC #### [facility] [address] [place] [address] Dr. Geri Pradhan RBC 0-2 Normal 0-2 [facility] Comment on above: Performed By: #### P OCGLUC #### [facility] [address] [place] [address] Dr. Geri Pradhan WBC 10-20 Abnormal NONE SEEN [facility] Comment on above: Performed By: #### P OCGLUC #### [facility] [address] [place] [address] Dr. Geri Pradhan XR CHEST 1 Von [...] EAMON ANDREWS Date: 2022-09-01 20:18 Normal [facility] CNOVon 06-02-2022 CNOV Office Visit (RADTSA ) PHOEBE GUERRERO ([id number]) 1960 F Date Time Provider Department 06/02/22 [...] COPD, who is diagnosed with Stage IA3, [id number], non-small cell lung cancer arising from a [...] Aspergillus. These results were discussed with her field service engineer Dr. Cross and the patient was referred [...] oxygen via nasal cannula at 2 L [id number]. She notes that her cough is improved [...] COPD, who is diagnosed with Stage IA3, [id number], non-small cell lung cancer arising from a [...] Guerrero i (more content not included)... Normal [facility] ASPERGILLUS GALACTOMANNAN AN TIGEN DETECTon 05-28-2022 Aspergillus Ag, BAL/Serum 0.07 Index Normal 0.00-0.49 [facility] Comment on above: Result Comment: Perf ormed at: BN Performed By: #### Gerry INGRAM CMP #### [facility] [address] [place] [address] Dr. Geri Pradhan Test Information . Normal [facility] Comment on above: Result Comment: Perf ormed at: TG Performed By: #### Gerry INGRAM CMP #### [facility] [address] [place] [address] Dr. Geri Pradhan ASPERGILLUS AB, QUANTITATIVE DIDon 05-27-2022 Aspergillus flavus Negative Normal Neg:<1:1 [facility] Comment on above: Performed By: #### Gerry INGRAM, CMP #### [facility] [address] [place] [address] Dr. Geri Pradhan Aspergillus fumigatus Negative Normal Neg:<1:1 [facility] Comment on above: Performed By: #### Gerry INGRAM, CMP #### [facility] [address] [place] [address] Dr. Geri Pradhan Aspergillus niger Negative Normal Neg:<1:1 [facility] Comment on above: Performed By: #### Gerry INGRAM, CMP #### [facility] [address] [place] [address] Dr. Geri Pradhan CULTURE SPUTUMon 05-23-2022 CULTURE SPUTUM Culture Observations : NORMAL RESPIRATORY NAVA. Normal [facility] Comment on above: Performed By: #### P OCGLUC #### [facility] [address] [address] [address] Geri Pradhan SPUTUM GRAM STAINon 05-23-19 COMMENTS Normal [facility] Comment on above: Performed By: #### Gerry INGRAM CMP #### [facility] [address] [address] [address] Geri Pradhan DIPHTHEROIDS Normal [facility] Comment on above: Performed By: #### Gerry INGRAM, CMP #### [facility] [address] [address] [address] Geri Pradhan EPITHELIALS <25 Normal [facility] Comment on above: Performed By: #### Gerry INGRAM CMP #### [facility] [address] [address] [address] Geri Pradhan FUNGAL ELEMENTS Normal [facility] Comment on above: Performed By: #### Gerry INGRAM CMP #### [facility] [address] [address] [address] Geri SY NEG BACILLI [facility] Comment on above: Performed By: #### Gerry INGRAM CMP #### [facility] [address] [address] [address] Geri SY NEG DIPPLOCOCCI [facility] Comment on above: Performed By: #### Gerry INGRAM CMP #### [facility] [address] [address] [address] Geri SY POS BACILLI [facility] Comment on above: Performed By: #### Gerry INGRAM, CMP #### [facility] [address] [address] [address] Geri Pradhan GRAM POSITIVE COCCI MODERATE Normal [facility] Comment on above: Performed By: #### Gerry INGRAM, CMP #### [facility] [address] [address] [address] Geri Pradhan WBC (Bld) [#/Vol] 10*3/uL Normal [facility] Comment on above: Performed By: #### Gerry INGRAM CMP #### [facility] [address] [place], [place] [address] Dr. Geri Mayer 05-14-2022 CNPN Telephone (RADTSA) CARA GUERRERO ([id number]) 1960 F Date Time Provider Department 05/14/22 [...] yesterday showing fungal/aspergillus infection. Spoke with her field service engineer, Dr. Cross, today and agreed to refer [...] sheet in your mailbox. Thanks, Alex Lomax [facility] 05/14/2022 2:00 PM Signed Records faxed to Dr. Conde. Requested images be pushed to [facility]. Abdi Israel MD 05/14/2022 [...] Order(s):CONSULT TO INFECTIOUS DISEASES [9016] Order #: [id number]: 1 FUTURE Prescriptions as of 05/15/2022 - [...] Encounter Status:Closed by JULISA PRESSLEY on 05/15/22 [facility] ANES POSTPROC EVALon 023 ANES POSTPROC EVAL HNO ID: [id number] Author: Lora Ruby MD Service: ? Author Type: Anesthesiologist Type: Anesthesia Postprocedure Evaluation Filed: 05/09/2022 1:16 PM Note Text: POST ANESTHESIA EVALUATION NOTE : 1960 Procedure Summary Date: 05/09/22 Room / Location: [facility] Anesthesia Start: 08 Anesthesia Stop: [...] May 09, 2022 TIME: 1:16 PM CSN: [id number] Normal [facility] ANES PRE-OPon 05-09-2022 ANES PRE-OP HNO ID: [id number] Author: Lora Ruby MD Service: ? Author Type: Anesthesiologist Type: Anesthesia Preprocedure Evaluation Filed: 05/09/2022 7:49 AM Note Text: ANESTHESIOLOGY DAY OF SURGERY NOTE : 1960 Procedure Information Date/Time: 05/09/22729 Procedure: BRONCHOSCOPY FLEXIBLE ADULT (Bronchus) - Tier 2- ION Robot Navigation Bronchoscopy CT scheduled for 05/06 COVID Neg 05/06 @ [facility] [phone] Location: [facility] Surgeons: Yasmin Sorensen MD Estimated [...] and consent discussed: yes. Patient / Responsible Libertarian agrees to proceed: yes Patient / Surrogate [...] May 09, 2022 TIME: 7:48 AM CSN: [id number] Normal [facility] BRONCHOSCOPYon 05-09-2022 [facility] CYTOLOGY NON-GYNon 3 ADEQUACY INTERPRETATION Normal [facility] Comment on above: Order Comment: Speci men Type: SPECIMEN OBTAINED BY ASPIRATIONOrdering Facility: [facility] Address: [address] [place] [address] Result Comment: A: # 1-5 Non-diagnostic #6,7 Acute inflammation and macrophages B: #1,2 Non-diagnostic Dr. Arian Layne/Dr. Arian Blancas/Rodney Ly Each letter in the above intra-procedural assessment refers to a unique site. The specific site is indicated in the final diagnosis portion of the report. Each number in this assessment references a discrete evaluation episode. Intra-procedural assessment performed at [facility], [facility] [place] [address] Performed By: #### C YTONON ####[facility] [id number] [place] [address] [place] CASE REPORT Normal [facility] Comment on above: Order Comment: Speci men Type: SPECIMEN OBTAINED BY ASPIRATIONOrdering Facility: [facility] Address: [address] [place] [address] Result Comment: [facility] Cytology Report Case: [id number] Authorizing Provider: Yasmin Sorensen MD Collected: 05/09/2022 08:48 AM Ordering Location: Admitting Received: 05/09/2022 10:24 AM Pathologist: Anthony Layne MD Specimens: A) - TRANSBRONCHIAL FINE-NEEDLE ASPIRATION, LEFT UPPER LOBE, LEFT UPPER LOBE NODULE B) - BRONCHIAL LEFT UPPER LOBE BRUSH, LEFT UPPER LOBE NODULE TRIPLE NEEDLE BRUSH Performed By: #### C YTONON ####[facility] [id number] [address] CLINICAL HISTORY Lung Cancer 2019. Normal C [facility] Comment on above: Order Comment: Speci men Type: SPECIMEN OBTAINED BY ASPIRATIONOrdering Facility: [facility] Address: [address] [place] [address] Performed By: #### C YTONON ####[facility] LABIA [id number] [address] DIAGNOSIS COMMENT Normal [facility] Comment on above: Order Comment: Speci men Type: SPECIMEN OBTAINED BY ASPIRATIONOrdering Facility: [facility] Address: [address] [place] [address] Result Comment: A an d B. The [...] Refer also to the concurrent biopsy specimen [id number]. The findings were conveyed to Dr. Sorensen via an email on 05/13/2022. by Dr. Layne Performed By: #### C YTONON ####[facility] [id number] [address] FINAL DIAGNOSIS Normal [facility] Comment on above: Order Comment: Speci men Type: SPECIMEN OBTAINED BY ASPIRATIONOrdering Facility: [facility] Address: [address] [place] [address] Result Comment: A - TRANSBRONCHIAL FINE NEEDLE [...] Alcohol Fixed Performed By: #### C YTONON ####[facility] [id number] [address] OF [facility] FINAL PERFORMING LAB Normal [facility] Comment on above: Order Comment: Speci men Type: SPECIMEN OBTAINED BY ASPIRATIONOrdering Facility: [facility] Address: [address] [place] [address] Result Comment: Tech nical component, coke oven mason screening performed at [facility], [facility] [place] [address] CLIA# [id number] Diagnostic interpretation performed at [facility], [facility] [address] [place] [address] CLIA# [id number] Chimney Sweeper: Axel Romano M.D. Performed By: #### C YTONON ####[facility] [id number] [address] GROSS DESCRIPTION Normal [facility] Comment on above: Order Comment: Speci men Type: SPECIMEN OBTAINED BY ASPIRATIONOrdering Facility: [facility] Address: [address] [place] [address] Result Comment: A. T RANSBRONCHIAL FINE-NEEDLE ASPIRATION, LEFT UPPER LOBE 30 cc cloudy red CytoLyt with material. ThinPrep and Cell Block prepared and 14 smears (7 air dried and 7 fixed). Performed By: #### C YTONON ####[facility] [id number] [address] [place] ORDER COMMENT Normal [facility] Comment on above: Order Comment: Speci men Type: SPECIMEN OBTAINED BY ASPIRATIONOrdering Facility: [facility] Address: [address] [place] [address] Result Comment: Pre- op diagnosis: Bronchiolar disease [J98.09] Performed By: #### C YTONON ####[facility] [id number] [address] [place] NURSING PROGon 05-09-2022 NURSING PROG HNO ID: [id number] Author: Luz Maria Blanca RN Service: Nursing [...] Signed By: Luz Maria Blanca RN Normal [facility] SURGICAL PATHOLOGYon 023 CASE REPORT Normal [facility] Comment on above: Order Comment: Speci men Type: TISSUE SPECIMENOrdering Facility: [facility] Address: [address] [place] [address] Result Comment: Surg ical Pathology Report Case: [id number] Authorizing Provider: Yasmin Sorensen MD Collected: 05/09/2022 09:34 AM Ordering Location: Admitting Received: 05/09/2022 10:56 AM Pathologist: Tucker Mulligan V, MD Specimen: TRANSBRONCHIAL BIOPSY, LEFT UPPER LOBE, SELENE NODULE Performed By: #### S ####[facility] [id number] [address] [place] CLINICAL HISTORY Normal [facility] Comment on above: Order Comment: Speci men Type: TISSUE SPECIMENOrdering Facility: [facility] Address: [address] [place] [address] Result Comment: Pre- op diagnosis: Bronchiolar disease [J98.09] Performed By: #### S ####[facility] [id number] [address] [place] DIAGNOSIS COMMENT Normal [facility] Comment on above: Order Comment: Speci men Type: TISSUE SPECIMENOrdering Facility: [facility] [facility] Address: [address] [address] Result Comment: Deep er levels were examined. No definite neoplasm is present. 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 [facility]/ 05/12/2022 Performed By: #### S ####[facility] LABCLIA [id number] [address] FINAL PERFORMING LAB Normal [facility] Comment on above: Order Comment: Speci men Type: TISSUE SPECIMENOrdering Facility: [facility] Address: [address] [place] [address] Result Comment: Diag nostic interpretation performed at [address] [place] [address] CLIA# [id number] Chimney Sweeper: Axel Romano M.D. Performed By: #### S ####[facility] LABIA [id number] [address] GROSS DESCRIPTION Normal [facility] Comment on above: Order Comment: Speci men Type: TISSUE SPECIMENOrdering Facility: [facility] Address: [address] [place] [address] Result Comment: A. T RANSBRONCHIAL BIOPSY, LEFT UPPER LOBE Received in formalin are multiple pieces of carcamo, soft tissue aggregating to 1.6 x 0.4 x 0.2 cm. Totally submitted in one cassette. GMR May 09, 2022 4:05 PM Gross examination performed at [address] [place] [address] Performed By: #### S ####[facility] LABCLIA [id number] [employer] [facility] [address] [place] [address] [place] [address] CHEST WO IVCONon 05-06-19 CT CHEST WO IVCON * * *Final Report* * * DATE OF EXAM: May 06 2022 8:57AM [facility] 0541 - CT CHEST WO IVCON [...] No abnormality in the imaged upper abdomen. Clerk Telegraph Service (topogram) images: No additional findings. IMPRESSION: 1. [...] any questions regarding this interpretation, please call [phone]. If you are unable to reach us at the number above, please feel free to contact [facility] eRadiology at [phone]. [id number] Normal [facility] Covid-19 PCR (CVDTBH)on 04-14 SARS-CoV-2 (COVID-19) RNA KRUNAL+probe Ql (Unsp spec) Not detected Normal NOT DETECTED [facility] Comment on above: Result Comment: This test is not yet approved or cleared by the [place] FDA. When there are no FDA-approved or cleared tests available, and other criteria are met, FDA can make tests available under an emergency access mechanism called an Emergency Use Authorization (EUA). The EUA for this test is supported by the Mandarin Tutor of Health and Human Service's (HHS's) declaration [...] SARS-CoV-2. Performed By: #### R SPLUS #### [facility] Laboratory [address] [place] [address] Dr. Geri Pradhan Basic metabolic 2000 panelon 04-24-2022 Anion gap [Moles/Vol] 5 mmol/L Low 9-18 [facility] Comment on above: Order Comment: Speci men Type: BLOOD SPECIMENOrdering Facility: [facility] Address: [address] [address] Performed By: #### 2 4321-2 ####[facility] LABCLIA [id number] [place] [address] Calcium [Mass/Vol] 9.8 mg/dL Normal 8.5-10.2 [facility] Comment on above: Order Comment: Speci men Type: BLOOD SPECIMENOrdering Facility: [facility] Address: [address] [address] Performed By: #### 2 4321-2 ####[facility] LABCLIA [id number] [place] [address] Chloride [Moles/Vol] 93 mmol/L Low 97-105 [facility] Comment on above: Order Comment: Speci men Type: BLOOD SPECIMENOrdering Facility: [facility] Address: [address] [address] Performed By: #### 2 4321-2 ####[facility] LABCLIA [id number] [place] [address] CO2 [Moles/Vol] 41 mmol/L High 22-30 [facility] Comment on above: Order Comment: Speci men Type: BLOOD SPECIMENOrdering Facility: [facility] Address: [address] [address] Performed By: #### 2 4321-2 ####[facility] LABCLIA [id number] [place] [address] Creatinine [Mass/Vol] 0.48 mg/dL Low 0.58-0.96 [facility] Comment on above: Order Comment: Speci men Type: BLOOD SPECIMENOrdering Facility: [facility] Address: [address] [place] [address] Performed By: #### 2 4321-2 ####[facility] LABCLIA [id number] [place] [address] ESTIMATED GLOMERULAR FILTRATION RATE 109 mL/min/1.73m??? Normal >=60 [facility] Comment on above: Order Comment: Speci men Type: BLOOD SPECIMENOrdering Facility: [facility] Address: [address] [place] [address] Result Comment: Angelique mated Glomerular Filtration Rate [...] actual GFR. Performed By: #### 2 4321-2 ####[facility] LABCLIA [id number] [place] [address] Glucose [Mass/Vol] 94 mg/dL Normal 74-99 [facility] Comment on above: Order Comment: Speci men Type: BLOOD SPECIMENOrdering Facility: [facility] Address: [address] [place] [address] Result Comment: The [place] Diabetes Association (ADA) provides guidance for cutoff [...] Standards of Medical Care in Diabetes 2016, [place] Diabetes Association. Diabetes Care. 2016.39(Suppl 1). Performed By: #### 2 4321-2 ####[facility] LABCLIA [id number] [place] [address] Potassium [Moles/Vol] 4.0 mmol/L Normal 3.7-5.1 [facility] Comment on above: Order Comment: Speci men Type: BLOOD SPECIMENOrdering Facility: [facility] Address: [address] [address] Performed By: #### 2 4321-2 ####[facility] LABCLIA [id number] [place] [address] Sodium [Moles/Vol] 139 mmol/L Normal 136-144 [facility] Comment on above: Order Comment: Speci men Type: BLOOD SPECIMENOrdering Facility: [facility] Address: [address] [address] Performed By: #### 2 4321-2 ####[facility] LABCLIA [id number] [place] [address] Urea nitrogen [Mass/Vol] 11 mg/dL Normal 7-21 [facility] Comment on above: Order Comment: Speci men Type: BLOOD SPECIMENOrdering Facility: [facility] Address: [address] [address] Performed By: #### 2 4321-2 ####[facility] LABCLIA [id number] [place] [address] CBC W Auto Differential pane l (Bld)on 04-24-2022 Basophils (Bld) [#/Vol] 0.03 10*3/uL Normal <0.11 [facility] Comment on above: Order Comment: Speci men Type: BLOOD SPECIMENOrdering Facility: [facility] Address: [address] [place] [address] Performed By: #### 5 7021-8 ####[facility] LABCLIA [id number] [place] [address] Basophils/100 WBC (Bld) 0.4 % Normal [facility] Comment on above: Order Comment: Speci men Type: BLOOD SPECIMENOrdering Facility: [facility] Address: [address] [place] [address] Performed By: #### 5 7021-8 ####[facility] LABCLIA [id number] [place] [address] Differential cell count method Nom (Bld) Auto Normal [facility] Comment on above: Order Comment: Speci men Type: BLOOD SPECIMENOrdering Facility: [facility] Address: [address] [place] [address] Performed By: #### 5 7021-8 ####[facility] LABCLIA [id number] [place] [address] Eosinophils (Bld) [#/Vol] 0.10 10*3/uL Normal <0.46 [facility] Comment on above: Order Comment: Speci men Type: BLOOD SPECIMENOrdering Facility: [facility] Address: [address] [address] Performed By: #### 5 7021-8 ####[facility] LABCLIA [id number] [place] [address] Eosinophils/100 WBC (Bld) 1.4 % Normal [facility] Comment on above: Order Comment: Speci men Type: BLOOD SPECIMENOrdering Facility: [facility] Address: [address] [place] [address] Performed By: #### 5 7021-8 ####[facility] LABCLIA [id number] [place] [address] Erythrocyte distribution width (RBC) [Ratio] 13.2 % Normal 11.5-15.0 [facility] Comment on above: Order Comment: Speci men Type: BLOOD SPECIMENOrdering Facility: [facility] Address: [address] [place] [address] Performed By: #### 5 7021-8 ####[facility] LABCLIA [id number] [place] [address] Hematocrit (Bld) [Volume fraction] 42.2 % Normal 36.0-46.0 [facility] Comment on above: Order Comment: Speci men Type: BLOOD SPECIMENOrdering Facility: [facility] Address: [address] [place] [address] Performed By: #### 5 7021-8 ####[facility] LABCLIA [id number] [place] [address] Hemoglobin (Bld) [Mass/Vol] 12.9 g/dL Normal 11.5-15.5 [facility] Comment on above: Order Comment: Speci men Type: BLOOD SPECIMENOrdering Facility: [facility] Address: [address] [place] [address] Performed By: #### 5 7021-8 ####[facility] LABCLIA [id number] [place] [address] Immature granulocytes (Bld) [#/Vol] 10*3/uL Normal <0.10 [facility] Comment on above: Order Comment: Speci men Type: BLOOD SPECIMENOrdering Facility: [facility] Address: [address] [place] [address] Performed By: #### 5 7021-8 ####[facility] LABCLIA [id number] [place] [address] Immature granulocytes/100 WBC (Bld) 0.3 % Normal [facility] Comment on above: Order Comment: Speci men Type: BLOOD SPECIMENOrdering Facility: [facility] Address: [address] [place] [address] Performed By: #### 5 7021-8 ####[facility] LABCLIA [id number] [place] [address] Lymphocytes (Bld) [#/Vol] 2.33 10*3/uL Normal 1.00-4.00 [facility] Comment on above: Order Comment: Speci men Type: BLOOD SPECIMENOrdering Facility: [facility] Address: [address] [address] Performed By: #### 5 7021-8 ####[facility] LABCLIA [id number] [place] [address] Lymphocytes/100 WBC (Bld) 32.3 % Normal [facility] Comment on above: Order Comment: Speci men Type: BLOOD SPECIMENOrdering Facility: [facility] Address: [address] [address] Performed By: #### 5 7021-8 ####[facility] LABCLIA [id number] [place] [address] MCH (RBC) [Entitic mass] 27.2 pg Normal 26.0-34.0 [facility] Comment on above: Order Comment: Speci men Type: BLOOD SPECIMENOrdering Facility: [facility] Address: [address] [address] Performed By: #### 5 7021-8 ####[facility] LABIA [id number] [place] [address] MCHC (RBC) [Mass/Vol] 30.6 g/dL Normal 30.5-36.0 [facility] Comment on above: Order Comment: Speci men Type: BLOOD SPECIMENOrdering Facility: [facility] Address: [address] [place] [address] Performed By: #### 5 7021-8 ####[facility] LABCLIA [id number] [place] [address] MCV (RBC) [Entitic vol] 89.0 fL Normal 80.0-100.0 [facility] Comment on above: Order Comment: Speci men Type: BLOOD SPECIMENOrdering Facility: [facility] Address: [address] [place] [address] Performed By: #### 5 7021-8 ####[facility] LABCLIA [id number] [place] [address] Monocytes (Bld) [#/Vol] 0.66 10*3/uL Normal <0.87 [facility] Comment on above: Order Comment: Speci men Type: BLOOD SPECIMENOrdering Facility: [facility] Address: [address] [place] [address] Performed By: #### 5 7021-8 ####[facility] LABCLIA [id number] [place] [address] Monocytes/100 WBC (Bld) 9.2 % Normal [facility] Comment on above: Order Comment: Speci men Type: BLOOD SPECIMENOrdering Facility: [facility] Address: [address] [place] [address] Performed By: #### 5 7021-8 ####[facility] LABCLIA [id number] [place] [address] Neutrophils (Bld) [#/Vol] 4.07 10*3/uL Normal 1.45-7.50 [facility] Comment on above: Order Comment: Speci men Type: BLOOD SPECIMENOrdering Facility: [facility] Address: [address] [place] [address] Performed By: #### 5 7021-8 ####[facility] LABCLIA [id number] [place] [address] Neutrophils/100 WBC (Bld) 56.4 % Normal [facility] Comment on above: Order Comment: Speci men Type: BLOOD SPECIMENOrdering Facility: [facility] Address: [address] [address] Performed By: #### 5 7021-8 ####[facility] LABCLIA [id number] [place] [address] Nucleated RBC (Bld) [#/Vol] 10*3/uL Normal <0.01 [facility] Comment on above: Order Comment: Speci men Type: BLOOD SPECIMENOrdering Facility: [facility] Address: [address] [address] Performed By: #### 5 7021-8 ####[facility] LABCLIA [id number] [place] [address] Nucleated RBC/100 WBC (Bld) [Ratio] 0.0 /100 WBC Normal [facility] Comment on above: Order Comment: Speci men Type: BLOOD SPECIMENOrdering Facility: [facility] Address: [address] [place] [address] Performed By: #### 5 7021-8 ####[facility] LABCLIA [id number] [place] [address] Platelet mean volume (Bld) [Entitic vol] 8.9 fL Low 9.0-12.7 [facility] Comment on above: Order Comment: Speci men Type: BLOOD SPECIMENOrdering Facility: [facility] Address: [address] [address] Performed By: #### 5 7021-8 ####[facility] LABCLIA [id number] [place] [address] Platelets (Bld) [#/Vol] 401 10*3/uL High 150-400 [facility] Comment on above: Order Comment: Speci men Type: BLOOD SPECIMENOrdering Facility: [facility] Address: [address] [place] [address] Performed By: #### 5 7021-8 ####[facility] LABCLIA [id number] [place] [address] RBC (Bld) [#/Vol] 4.74 10*6/uL Normal 3.90-5.20 [facility] Comment on above: Order Comment: Speci men Type: BLOOD SPECIMENOrdering Facility: [facility] Address: [address] [place] [address] Performed By: #### 5 7021-8 ####[facility] LABCLIA [id number] [place] [address] WBC (Bld) [#/Vol] 7.21 10*3/uL Normal 3.70-11.00 [facility] Comment on above: Order Comment: Speci men Type: BLOOD SPECIMENOrdering Facility: [facility] Address: [address] [place] [address] Performed By: #### 5 7021-8 ####[facility] LABIA [id number] [place] [address] [facility] (HEMASA) CARA GUERRERO ([id number]) 1960 F Date Time Provider Department 04/24/22 11:00 AM GARY NURSE ANGUS ARENAS During your visit today, we recorded the following information about you: Marie Corrales 04/24/2022 11:30 AM Signed EKG performed as ordered. Electronically sent to [facility] main. Placed paper copy in scan folder. Marie Corrales MA Referring Provider: VITOR FARIAS [[id number]] Allergies As of Date: 04/24/2022 Noted Allergy Reaction LEVOQUIN (LEVOFLOXACIN) 03/02/2018 16 - Unknown Comments: Tendonitis but can take avalox Date Reviewed: 03/14/2022 Reviewed by: Julisa Pressley LPN - Fully Assessed Visit Diagnosis:Lung mass [R91.8] Order(s):ECG COMPLETE [ECG01] Order #: [id number] Prescriptions as of 04/24/2022 - iv contrast [...] Visit Notes: >> Marie Corrales [facility] Apr 24, 2022 11:29 AM Status: Signed EKG performed as ordered. Electronically sent to [facility] main. Placed paper copy in scan folder. Marie GARY Corrales Encounter Status:Closed by MARIE CORRALES on 04/24/22 [facility] [place] 04-24-2022 CNPN Telephone (PUBRON) CARA GUERRERO ([id number]) 1960 F Date Time Provider Department 04/24/22 [...] Encounter Status:Closed by FLORINA ESTRADA on 04/24/22 [facility] [id number] 04-24-2022 ECG01 Ventricular Rate : 1 03 BPM Atrial Rate : 103 BPM P-R Interval : 162 ms QRS Duration : 72 ms Q-T Interval : 340 ms QTC Calculation(Bazett) : 445 ms Calculated P Anza : 85 degrees Calculated R Anza : 82 degrees Calculated T Anza : 85 degrees SINUS TACHYCARDIA RIGHT ATRIAL ENLARGEMENT BORDERLINE ECG Reconfirmed by JOSE JIN MD ([id number]) on 05/04/2022 1:40:49 PM NAME : CARA GUERRERO PID : [id number] : 1960 Gender : Female Race : ORD : Procedure Date : Apr 24 2022 12:35:15 Edit Date : May 04 2022 13:40:50 Diagnosis: SINUS TACHYCARDIA RIGHT ATRIAL ENLARGEMENT BORDERLINE ECG Reconfirmed by JOSE JIN MD ([id number]) on 05/04/2022 1:40:49 PM Test Reason : Location : [facility] : [facility] Overread By : JOSE JIN MD Edited By : JOSE JIN MD Referred By : , Acquired by : Ermias HAIRSTON [facility] [place] 04-23-2022 CNPN Telephone (NCCAP) CARA GUERRERO ([id number]) 1960 F Date Time Provider Department 04/23/22 [...] Encounter Status:Closed by ALEX NASH on 04/29/22 [facility] 04-22-2022 ECTORN Telephone (RADShanghai AnymobaA) CARA GUERRERO ([id number]) 1960 F Date Time Provider Department 04/22/22 [...] Status:Closed by JULISA PRESSLEY on 04/25/22 Normal [facility] Covid-19 PCR (CVDTBH)on 03-14 SARS-CoV-2 (COVID-19) RNA KRUNAL+probe Ql (Unsp spec) Not detected Normal NOT DETECTED [facility] Comment on above: Result Comment: This test is not yet approved or cleared by the [place] FDA. When there are no FDA-approved or cleared tests available, and other criteria are met, FDA can make tests available under an emergency access mechanism called an Emergency Use Authorization (EUA). The EUA for this test is supported by the Mandarin Tutor of Health and Human Service's (HHS's) declaration [...] Performed By: #### Gerry INGRAM, CMP #### [facility] [address] [place] [address] Dr. Geri Pradhan INFLUENZA A AND B AGon 04-08 [facility] SEE BELOW Normal [facility] Comment on above: Result Comment: Nega tive for Flu A protein angiten. Infection due to Flu A cannot be ruled out. Flu A angiten in the sample may be below the detection limit of the test. Performed By: #### Gerry INGRAM, CMP #### [facility] [address] [place] [address] Dr. Geri Prad[facility] BELOW Normal [facility] Comment on above: Result Comment: Nega tive for Flu B protein antigen. Infection due to Flu B cannot be ruled out. Flu B antigen in the sample may be below the detection limit of the test. Performed By: #### Gerry INGRAM, CMP #### [facility] [address] [place] [address] Dr. Geri Pradhan INFLUENZA A AG Negative Normal NEGATIVE SEE COMMENT [facility] Comment on above: Performed By: #### Gerry INGRAM CMP #### [facility] [address] [place] [address] Dr. Geri Pradhan INFLUENZA B AG Negative Normal NEGATIVE SEE COMMENT [facility] Comment on above: Performed By: #### Gerry INGRAM, CMP #### [facility] [address] [place] [address] Dr. Geri Pradhan INTERNAL CONTROLS Within Normal Limits Normal Wi thin Normal Limits [facility] Comment on above: Performed By: #### Gerry INGRAM, CMP #### [facility] [address] [place] [address] Dr. Geri STEINBERGOVon 03-14-2022 CNOV Office Visit (RADTSA ) CARA GUERRERO ([id number]) 1960 F Date Time Provider Department 03/14/22 [...] COPD, who is diagnosed with Stage IA3, [id number], non-small cell lung cancer arising from a [...] posttreatment changes. She also met with her field service engineer Dr. Cross after her CT results were [...] COPD, who is diagnosed with Stage IA3, [id number], non-small cell lung cancer arising from a nodule in the left uppe (more content not included)... Normal [facility] NM PET/CT SKULL-THIGH INITon 03-07-2022 NM PET/CT [...] MUSCULOSKELETAL: There are no hypermetabolic osseous lesions. [employer] (topogram) images: No additional findings. IMPRESSION: Head [...] Date/Time: Mar 07 2022 9:14A Dictated by: DLEON ALMONTE MD This examination was interpreted and the report reviewed and electronically signed by: DELON ALMONTE MD on Mar 07 2022 9:42AM EST Thank you for allowing us to participate in the care of your patient. Should there be any questions regarding this interpretation, please call [phone]. If you are unable to reach us at the number a (more content not included)... Normal [facility] 02-20-2022 CNPN Telephone (RADTSA) CARA GUERRERO ([id number]) 1960 F Date Time Provider Department 02/20/22 [...] Encounter Status:Closed by JULISA PRESSLEY on 02/20/[address] [facility] Telephone (Comr.seTSA) CARA GUERRERO ([id number]) 1960 F Date Time Provider Department 02/20/22 [...] of lung [D49.1] Order(s):NM PET/CT SKULL-THIGH INITIAL [[id number]] Order #: [id number] FUTURE Prescriptions as of 02/21/2022 - iv [...] Status:Closed by JULISA PRESSLEY on 02/21/22 Normal [facility] CT CHEST W CONon 02-17-2022 CT CHEST [...] JULES RAMIREZ Date: 2022-02-17 08:02 Normal [facility] CREATININEon 02-15-2022 Creatinine [Mass/Vol] 0.52 mg/dL Critically low 0.55-1.02 [facility] Comment on above: Performed By: #### R SPLUS #### [facility] [address] [place] [address] Dr. Geri Pradhan EGFR-AF WALLISIAN >60 Normal >=60 [facility] Comment on above: Performed By: #### R SPLUS #### [facility] [address] [place] [address] Dr. Geri Pradhan EGFR-NON AF WALLISIAN >60 Normal >=60 [facility] Comment on above: Performed By: #### R SPLUS #### [facility] [address] [place] [address] Dr. Geri Pradhan CULTURE SPUTUMon 02-11-2022 CULTURE SPUTUM Isolate 1 Milagros albicans Light growth of Normal [facility] Comment on above: Performed By: #### S PUTCX #### [facility] [address] [place] [address] Dr. Geri Pradhan SPUTUM GRAM STAINon 02-12-20 22 COMMENTS Normal [facility] Comment on above: Performed By: #### R SPLUS #### [facility] [facility] [address] [place] [address] Dr. Geri Pradhan DIPHTHEROIDS Normal [facility] Comment on above: Performed By: #### R SPLUS #### [facility] [address] [place] [address] Dr. Geri Pradhan EPITHELIALS <25 Normal [facility] Comment on above: Performed By: #### R SPLUS #### [facility] [address] [place] [address] Dr. Geri Pradhan FUNGAL ELEMENTS Normal The [facility] Comment on above: Performed By: #### R SPLUS #### [facility] [address] [address] [address] Geri Pradhan GRAM NEG BACILLI Normal The [facility] Comment on above: Performed By: #### R SPLUS #### [facility] [address] [address] [address] Geri Pradhan GRAM NEG DIPPLOCOCCI Normal [facility] Comment on above: Performed By: #### R SPLUS #### [facility] [address] [address] [address] Geri Pradhan GRAM POS BACILLI Normal [facility] Comment on above: Performed By: #### R SPLUS #### [facility] [address] [place] [address] Dr. Geri Pradhan GRAM POSITIVE COCCI MODERATE Normal The [facility] Comment on above: Performed By: #### R SPLUS #### [facility] [address] [place] [address] Dr. Geri Pradhan WBC (Bld) [#/Vol] 10*3/uL Normal [facility] Comment on above: Performed By: #### R SPLUS #### [facility] [address] [place] [address] Dr. Geri Pradhan [facility]13 SARS-CoV-2 (COVID-19) RNA KRUNAL+probe Ql (Unsp spec) Detected Critically abnormal NOT DETECTED [facility] Comment on above: Result Comment: This test is not yet approved or cleared by the [place] FDA. When there are no FDA-approved or cleared tests available, and other criteria are met, FDA can make tests available under an emergency access mechanism called an Emergency Use Authorization (EUA). The EUA for this test is supported by the [place] Tutor of Health and Human Service's (HHS's) declaration [...] longer be used). Performed By: #### [facility] #### [facility] [address] [address] [address] Geri Pradhan General Surgery Office/Clini c Noteon 03-25-2021 General Surgery Office/Clinic Note Chief Complaint in-office excisional biopsy HPI Staff Presents for in-office excisional biopsy right moravian and right lower extremity. No change since last evaluation. History of Present Illness here for excision of right moravian and RLE lesions; no change since recent [...] and draped; anesthetized with 1% lidocaine; right moravian lesion excised in an elliptical fashion down [...] Cardiac arrest: Mother, Father and Sister. Normal [facility] Comment on above: Result Comment: Elec tronically Signed By: JIM DAVENPORT, Jose Domínguez\Date and Time Signed: 03/25/21 17:02 EST Ambulatory Clinical Summaryo n 02-12-2021 Ambulatory Clinical Summary {[id number]}CD:[id number] Normal [facility] General Surgery Office/Clini c Noteon 02-12-2021 General Surgery Office/Clinic Note Chief Complaint follow up in-office excisional biopsy HPI Staff 11 day post operative follow up post in-office excisional biopsy right moravian and right lower extremity. Sutures intact. Denies bleeding or drainage from incision site. History of Present Illness 11 days s/p excisional biopsy changing lesions right moravian and right lower extremity; doing well, no drainage; moravian lesion basal cell carcinoma, margins not commented [...] Cardiac arrest: Mother, Father and Sister. Normal [facility] Comment on above: Result Comment: Elec tronically Signed By: JIM DAVENPORT, Jose Domínguez\Date and Time Signed: 02/12/21 13:16 EDT Pathology Noteon 02-06-2021 Pathology Note [id number] 0CD:127 Normal [facility] Ambulatory Clinical Summaryo n 01-11-2021 Ambulatory Clinical Summary {[id number] Normal [facility] Ambulatory Clinical Summary {[id number]}CD:[id number] Normal [facility] Physician Referralon 021 Physician Referral [id number] 0CD:127 Normal [facility] NTC02do 03-02-2018 Protein mass conc NAME : ELAINE GUERRERO D : [id number] : 1960 Gender : FemaleRace : CaucasianORD : [id number] Procedure Date : Mar 02 2018 12:58:22Edit Date : Mar 02 2018 14:15:37 Diagnosis:NORMAL SINUS RHYTHMRIGHT ATRIAL ENLARGEMENTMINIMAL VOLTAGE CRITERIA FOR LVH, MAY BE NORMAL VARIANTBORDERLINE ECGNO PREVIOUS ECGS AVAILABLEConfirmed by CORNELIA ROGERS M.D. ([id number]) on 03/02/2018 2:15:27 PM Ventricular Rate : 86 BPMAtrial Rate : 86 BPMP-R Interval : 178 msQRS Duration : 72 msQ-T Interval : 374 msQTC Calculation(Bezet) : 447 msP Anza : 88 degreesR Anza : 78 degreesT Anza : 79 degrees Test Reason : Location : 49 : [facility] Overread By : KEN Maier,MIHIRJAYEdited By : KEN Maier,JEAN-CLAUDEYReferred By : DUGLAS FERNANDEZAcquired by : CELESTE GILLESPIE [facility] Vital Signs Date Time Vital Sign Value Performing Clinician Facility 11-27-2022 10:34-0400 Body temperature 96.01 [degF] Abdi Israel MD Work Phone: [facility] 11-27-2022 10:34-0400 Body weight 45.18 kg Abdi Israel MD Work Phone: [facility] 11-27-2022 10:34-0400 Diastolic blood pressure 82 mm[Hg] Abdi Israel MD Work Phone: [facility] 11-27-2022 10:34-0400 Heart rate 110 /min Abdi Israel MD Work Phone: [facility] 11-27-2022 10:34-0400 Respiratory rate 20 /min Abdi Israel MD Work Phone: [facility] 11-27-2022 10:34-0400 SaO2% (BldA) [Mass fraction] 89 % Abdi Israel MD Work Phone: [facility] 11-27-2022 10:34-0400 Systolic blood pressure 132 mm[Hg] Abdi Israel MD Work Phone: [facility] 06-26-2022 15:00-0400 Body height 162.56 cm Jose Elton Other [facility] Other 06-26-2022 15:00-0400 Body mass index (BMI) [Ratio] 18.02 kg/m2 Jose Elton Other [facility] Other 06-26-2022 15:00-0400 Body temperature 97.2 [degF] Jose Conde Other [facility] Other 06-26-2022 15:00-0400 Body weight 47.63 kg Jose Conde Other [facility] Other 06-26-2022 15:00-0400 Diastolic blood pressure 80 mm[Hg] Jose Conde Other [facility] Other 06-26-2022 15:00-0400 Systolic blood pressure 128 mm[Hg] Jose Conde Other [facility] Other 06-02-2022 14:09-0500 Body temperature 97.7 [degF] Abdi Israel MD Work Phone: [facility] 06-02-2022 14:09-0500 Body weight 49.35 kg Abdi Israel MD Work Phone: [facility] 06-02-2022 14:09-0500 Diastolic blood pressure 78 mm[Hg] Abdi Israel MD Work Phone: [facility] 06-02-2022 14:09-0500 Heart rate 116 /min Abdi Israel MD Work Phone: [facility] 06-02-2022 14:09-0500 Respiratory rate 18 /min Abdi Israel MD Work Phone: [facility] 06-02-2022 14:09-0500 SaO2% (BldA) [Mass fraction] 89 % Abdi Israel MD Work Phone: [facility] 06-02-2022 14:09-0500 Systolic blood pressure 125 mm[Hg] Abdi Israel MD Work Phone: [facility] 05-22-2022 15:15-0500 Body height 162.56 cm Jose Conde Other [facility] Other 05-22-2022 15:15-0500 Body mass index (BMI) [Ratio] 18.02 kg/m2 Jose Conde Other [facility] Other 05-22-2022 15:15-0500 Body temperature 98.2 [degF] Jose Conde Other [facility] Other 05-22-2022 15:15-0500 Body weight 47.63 kg Jose Conde Other [facility] Other 05-22-2022 15:15-0500 Diastolic blood pressure 78 mm[Hg] Jose Conde Other [facility] Other 05-22-2022 15:15-0500 Systolic blood pressure 130 mm[Hg] Jose Conde Other [facility] Other 05-09-2022 10:30-0500 Diastolic blood pressure 80 mm[Hg] Yasmin Sorensen MD Work Phone: [facility] 05-09-2022 10:30-0500 Heart rate 99 /min Yasmin Sorensen MD Work Phone: [facility] 05-09-2022 10:30-0500 Respiratory rate 16 /min Yasmin Sorensen MD Work Phone: [facility] 05-09-2022 10:30-0500 SaO2% (BldA) [Mass fraction] 97 % Yasmin Sorensen MD Work Phone: [facility] 05-09-2022 10:30-0500 Systolic blood pressure 134 mm[Hg] Yasmin Sorensen MD Work Phone: [facility] 05-09-2022 10:02-0500 Body temperature 98.2 [degF] Yasmin Sorensen MD Work Phone: [facility] 05-09-2022 07:03-0500 Body height 162.6 cm Yasmin Sorensen MD Work Phone: [facility] 05-09-2022 07:03-0500 Body weight 47.63 kg Yasmin Sorensen MD Work Phone: [facility] 03-14-2022 11:22-0500 Body temperature 97.81 [degF] Abdi Israel MD Work Phone: [facility] 03-14-2022 11:22-0500 Body weight 49.9 kg Abdi Israel MD Work Phone: [facility] 03-14-2022 11:22-0500 Heart rate 101 /min Abdi Israel MD Work Phone: [facility] 03-14-2022 11:22-0500 Respiratory rate 16 /min Abdi Israel MD Work Phone: [facility] 03-14-2022 11:22-0500 SaO2% (BldA) [Mass fraction] 96 % Abdi Israel MD Work Phone: [facility] 06-06-2021 10:01-0500 Body temperature 97.7 [degF] Abdi Israel MD Work Phone: [facility] 06-06-2021 10:01-0500 Body weight 51.71 kg Abdi Israel MD Work Phone: [facility] 06-06-2021 10:01-0500 Diastolic blood pressure 67 mm[Hg] Abdi Israel MD Work Phone: [facility] 06-06-2021 10:01-0500 Heart rate 97 /min Abdi Israel MD Work Phone: [facility] 06-06-2021 10:01-0500 Respiratory rate 20 /min Abdi Israel MD Work Phone: [facility] 06-06-2021 10:01-0500 SaO2% (BldA) [Mass fraction] 93 % Abdi Israel MD Work Phone: [facility] 06-06-2021 10:01-0500 Systolic blood pressure 120 mm[Hg] Abdi Israel MD Work Phone: [facility] Encounters Encounter Date Encounter Type Care Provider Facility Start: 04-09-2023 End: 04-09-2023 ambulatory ANA DRIVER Not Available Start: 11-27-2022 End: 11-28-2022 ambulatory ABDI ISRAEL Facility:[facility] Start: 11-27-2022 End: 11-28-2022 Patient encounter procedure Abdi Israel MD Work Phone: Radiation Oncology Comment on above: Neoplasm of lung (Pr imary Dx) Start: 11-18-2022 Telephone encounter Ced Rojas Hematology/Oncology Comment on above: Appointment Start: 09-02-2022 End: 09-05-2022 Evaluation and management of inpatient DR ADITHYA KENYON . Facility: Start: 06-26-2022 End: 06-26-2022 ambulatory Jose Conde Other [facility] Other Start: 06-26-2022 Office outpatient vi sit 25 minutes Jose LORENZANA Infectious Disease Start: 06-10-2022 End: 06-10-2022 ambulatory Jose Conde Other [facility] Other Start: 06-10-2022 Telephone encounter Jose RAMOS G Infectious Disease Start: 06-02-2022 End: 06-02-2022 ambulatory ADITHYA KENYON Facility:[facility] Start: 06-02-2022 End: 06-02-2022 Patient encounter procedure Abdi Israel MD Work Phone: Radiation Oncology Comment on above: Non-small cell cance r of left lung (HCC) (Primary Dx) Start: 05-23-2022 End: 05-23-[address] JOSE CONDE Facility:[facility] Start: 05-22-2022 End: 05-23-[address] JOSE CONDE [facility] Other Start: 05-22-2022 Office outpatient ne w 45 minutes Jose LORENZANA Infectious Disease Start: 05-14-2022 Telephone encounter Abdi Israel MD Work Phone: Radiation Oncology Comment on above: Appointment Start: 05-09-2022 ambulatory ADITHYA M JESSEZachary Facility: [facility] Start: 05-09-2022 End: 05-09-2022 Subsequent hospital visit by physician Yasmin Sorensen MD Work Phone: Admitting Comment on above: Bronchiolar disease [J98.09] Start: 05-08-2022 Encounter for preprocedural laboratory examination DR DOCTOR DAS [facility] Start: 05-06-2022 End: 05-06-[address] DOCTOR DAS Facility:[facility] Start: 05-06-2022 End: 05-06-2022 Encounter for preprocedural laboratory examination DR DOCTOR DAS Facility:[facility] Start: 05-06-2022 End: 05-06-2022 ambulatory VITOR FARIAS Facility:[facility] Start: 04-28-2022 End: 04-28-2022 ambulatory Vitor Farias MD Work Phone: Pulmonology Comment on above: Non-small cell cance r of left lung (HCC) (Primary Dx); Lung mass; Centrilobular emphysema (HCC) Start: 04-28-2022 End: 04-28-2022 Telemedicine consultation with patient Vitor Farias MD Work Phone: [facility] Start: 04-24-2022 Telephone encounter Florina GUAMAN Pulmonary Medicine Comment on above: Appointment (PreOp B ronch) Start: 04-24-2022 End: 04-24-2022 ambulatory VITOR FARIAS Facility:[facility] Start: 04-23-2022 Orders Only Alicja Reece APRN.[employer] Work Phone: Admitting Comment on above: Preoperative examina tion (Primary Dx) Appointment Start: 04-23-2022 Preprocedural examin ation done Alicja Reece DIRECTOR PAID MEDIA.[employer] Work Phone: Admitting Start: 04-22-2022 ambulatory Vitor cagle MD Work Phone: Pulmonary Medicine Start: 04-22-2022 Telephone encounter Abdi Israel MD Work Phone: Radiation Oncology Comment on above: Patient Update; Appo intment Start: 04-08-2022 End: 04-08-[address] ADITHYA KENYON . Facility: Start: 03-14-2022 End: 03-14-2022 ambulatory ABDI ISRAEL Facility:[facility] Start: 03-14-2022 End: 03-14-2022 Patient encounter procedure Abdi Israel MD Work Phone: Radiation Oncology Comment on above: Non-small cell cance r of left lung (HCC) (Primary Dx) Start: 03-07-2022 End: 03-07-2022 ambulatory ABDI ISRAEL Facility:[facility] Start: 02-20-2022 Telephone encounter Abdi Israel [...] of lung Start: 03-02-2018 Patient encounter procedure [facility] Start: 03-24-2017 Ambulatory JAYE HOUGH Facil [id number] Start: 03-24-2017 Ambulatory Adithya Kenyon Fac ility:[id number] Procedures Date Procedure Procedure Detail Performing Clinician Start: 05-09-2022 [facility] incl fluor g dnce dx w/cell washg spx Abdi Israel MD Work Phone: Start: 06-06-2021 Adult depression screening assessment Abdi Israel MD Work Phone: Plan of Treatment Date Care Activity Detail Author Start: 04-24-2025 DIABETES SCREEN DIABETES SCREEN [facility] Start: 05-13-2023 End: 07-13-2023 CREATININE BLD CREATININE BLD Lab Routine Neoplasm of lung Expected: 05/13/2023 (Approximate), Expires: 07/13/2023 [facility] Work Phone: Comment on above: Expected: 05/13/2023 (Approximate), Expires: 07/13/2023 Start: 05-13-2023 End: 12-27-2023 CT CHEST W IVCON CT CHEST W IVCON Radiology Routine Neoplasm of lung Expected: 05/13/2023 (Approximate), Expires: 12/27/2023 [facility] Work Phone: Comment on above: Expected: 05/13/2023 (Approximate), Expires: 12/27/2023 Start: 12-12-2022 Influenza vaccination INFLUENZA (#1) [facility] Start: 06-06-2022 Adult depression screening assessment DEPRESSION SCREENING [facility] Start: 06-06-2022 End: 06-06-2022 CREATININE BLD CREATININE BLD Lab Routine Non-small cell cancer of left lung (HCC) Expected: 06/06/2022, Expires: 06/06/2022 [facility] Work Phone: Comment on above: Expected: 06/06/2022 , Expires: 06/06/2022 Start: 06-06-2022 End: 07-06-2022 Ct thorax w/contrast material CT CHEST W IVCON Radiology Routine Non-small cell cancer of left lung (HCC) Neoplasm of lung Expected: 06/06/2022, Expires: 07/06/2022 [facility] Work Phone: Comment on above: Expected: 06/06/2022 , Expires: 07/06/2022 Start: 04-24-2022 End: 06-24-2022 SARS-CoV-2 (COVID-19) RNA [Presence] in Respiratory specimen by KRUNAL with probe detection INTERMEDIATE RAPID COVID Microbiology Routine Preoperative examination Expected: 04/24/2022, Expires: 06/24/2022 [facility] Work Phone: Comment on above: Expected: 04/24/2022 , Expires: 06/24/2022 Start: 04-22-2022 End: 06-22-2022 Basic metabolic 2000 panel - Serum or Plasma BASIC METABOLIC PNL Lab STAT Lung mass Expected: 04/22/2022, Expires: 06/22/2022 [facility] Work Phone: Comment on above: Expected: 04/22/2022 , Expires: 06/22/2022 Start: 04-22-2022 End: 06-22-2022 CBC W Auto Differential panel - Blood CBC + DIFF Lab STAT Lung mass Expected: 04/22/2022, Expires: 06/22/2022 [facility] Work Phone: Comment on above: Expected: 04/22/2022 , Expires: 06/22/2022 Start: 04-13-2022 [facility] Start: 12-12-2021 Influenza vaccination INFLUENZA (#1) [facility] Start: 04-13-2021 DEPRESSION [facility]ESSMENT [facility] Start: 03-02-2021 DIABETES SCREEN DIABETES SCREEN [facility] Start: 08-26-2011 SHINGRIX VACCINE (1 of 2) SHINGRIX VACCINE (1 of 2) [facility] Start: 2006 COLOGUARD (FIT-DNA) COLOGUARD (FIT-D NA) [facility] Start: 2006 Colonoscopy COLONOSCOPY [facility] Start: 2006 COLORECTAL CANCER SCREENING COLORECTAL CANCER SCREENING [facility] Start: [address] COLONOGRAPHY [facility] Start: 2006 FECAL OCCULT BLOOD FECAL OCCULT BLOO D [facility] Start: 2006 LIPID SCREEN LIPID SCREEN [facility] Start: 2006 SIGMOIDOSCOPY SIGMOIDOSCOPY [facility] Start: 2001 Mammography MAMMOGRAM [facility] Start: 08-26-1991 HPV TESTING HPV TESTING [facility] Start: 08-26-1991 Zoledronic acid therapy ALPHA- 1 ANTITRYPSIN DEFICIENCY SCREENING [facility] Start: 1982 PAP TESTING PAP TESTING [facility] Start: 1980 Urine microalbumin profile DTAP,TDAP,TD (1 - Tdap) [facility] Start: 08-26-1979 ANNUAL PCP TEAM TRACTOR ENGINE MECHANIC PREETHI DISEASE VISIT ANNUAL PCP TEAM CHRONIC DISEASE VISIT [facility] Start: 08-26-1979 HEPATITIS C SCREENING HEPATITIS C SC REENING [facility] Start: 08-26-1979 HIV SCREENING HIV SCREENING [facility] Start: 08-26-1979 SPIROMETRY SPIROMETRY [facility] Start: 08-26-1967 PNEUMOCOCCAL (1 - PCV) PNEUMOCOCCAL (1 - PCV) [facility] Start: 1966 COVID-19 VACCINE (1) COVID-19 VACCIN E (1) [facility] Start: 02-25-1962 COVID-19 VACCINE (#1) COVID-19 VACCI NE (#1) [facility] End: 05-22-2023 Ct thorax w/o contrast material CT CHEST WO IVCON Radiology Routine Lung mass 1 Occurrences starting 04/22/2022 until 05/22/2023 [facility] Work Phone: Comment on above: 1 Occurrences starti ng 04/22/2022 until 05/22/2023 CYTOLOGY NON-VISITOR INFORMATION ASSISTANT [facility] Work Phone: Comment on above: Release Upon Orderin g for 1 Occurrences starting 05/09/2022, 1 completed End: 04-22-2023 ECG COMPLETE ECG COMPLETE ECG STAT Lung mass 1 Occurrences starting 04/22/2022 until 04/22/2023 [facility] Work Phone: Comment on above: 1 Occurrences starti ng 04/22/2022 until 04/22/2023 End: 03-22-[address] attenuation skull base mid-thigh NM PET/CT SKULL-THIGH INITIAL Radiology Routine Neoplasm of lung 1 Occurrences starting 02/21/2022 until 03/22/2023 [facility] Work Phone: Comment on above: 1 Occurrences starti ng 02/21/2022 until 03/22/2023 SARS-CoV-2 (COVID-19 ) RNA [Presence] in Respiratory specimen by KRUNAL with probe detection SELF CHECK COVID Microbiology Routine Lung mass Ordered: 04/22/2022 [facility] Work Phone: Comment on above: Ordered: 04/22/2022 SURGICAL PATHOLOGY [facility] Work Phone: Comment on above: Release Upon Orderin g for 1 Occurrences starting 05/09/2022, 1 completed [facility] Immunizations Immunization Date Immunization Notes Care Provider [facility] 03-04-2022 influenza, injectabl e, quadrivalent, preservative free Vitor Farias MD Work Phone: [facility] 03-19-2021 influenza, injectabl e, quadrivalent, preservative free Vitor Farias MD Work Phone: [facility] 02-22-2021 influenza virus vacc ine, unspecified formulation Vitor Farias MD Work Phone: [facility] 03-02-2020 Influenza, injectabl e, Madin Bushra Canine Kidney, preservative free, quadrivalent Vitor Farias MD Work Phone: [facility] 02-02-2019 Influenza, injectabl e, Madin Bushra Canine Kidney, preservative free, quadrivalent Vitor Farias MD Work Phone: [facility] 03-02-2018 influenza, injectabl e, quadrivalent, contains preservative Abdi Israel MD Work Phone: [facility] Payers Date Payer Category Payer Medicaid [employer] [id number] 2018-Present [phone] [address] [place] [address] Medicaid [id number] 2018 Medicaid [id number] 1960 Unknown [id number] 1960 Unknown [id number] 1960 Unknown [id number] 1960 Unknown [id number] 1960 Unknown [id number] 1960 Unknown [id number] 1961 Unknown [id number] 1961 Unknown [id number] 1961 Unknown [id number] 1961 Unknown [id number] 1959 Self-pay [id number] 1959 Unknown [id number] 1959 Unknown [id number] Social History Date Type Detail Facility Start: 03-02-2018 End: 03-14-2022 Tobacco smoking status NHIS Ex-smoker [facility] End: 04-13-2012 History of tobacco use Current smoker [facility] Start: 03-02-2018 End: 11-27-2022 Cigarettes smoked current (pack per day) - Reported 1.5 [facility] Start: 03-02-2018 End: 03-14-2022 Tobacco use and exposure Smokeless tobacco non-user [facility] Start: 06-06-2021 End: 03-14-2022 Alcohol intake Current drinker of alcohol (finding) [facility] Start: 1960 Sex Assigned At Not on file C [facility] Start: 05-07-2021 End: 03-14-2022 Exposure to SARS-CoV-2 (event) Not sure [facility] End: 04-13-2012 History of tobacco use Cigarette Smoker [facility] Work Phone: Start: 03-14-2022 End: 11-27-2022 Sex Assigned At [facility] Adult Depression Screening Assessment 0 [facility] Clinical Notes 05-14-2011 to 11-27-2022 Abdi Israel MD - 11/27/2022 10:30 AM EDTTelephone Encounter - Julisa Pressley LPN - 11/18/2022 3:29 PM EDTTelephone Encounter - Ced Victoria RN - 11/18/2022 2:47 PM EDT Note Date & Type Note Facility 11-27-2022 Note HNO ID: [id number] Author: Abdi Israel MD Service: ? Author Type: Physician Type: Progress Notes Filed: 12/09/2022 9:33 PM Note Text: Radiation Oncology - Follow Up Note PATIENT NAME: PHOEBE Guerrero PATIENT DIAGNOSIS/PATIENT IDENTIFICATION: Ms. Guerrero is a 62-year-old woman with severe COPD, who is diagnosed with Stage IA3, [id number], non-small cell lung cancer arising from a [...] been following up with pulmonary therapy at [facility] and with her field service engineer Dr. Driver and using her nebulizers. She [...] COPD, who is diagnosed with Stage IA3, [id number], non-small cell lung cancer arising from a [...] the chest. She will follow with her field service engineer Dr. Driver to optimize her respiratory function [...] which included preparing to see the patient, ffqz-yb-bhar patient care, and counseling and educating the patient/family/caregiver. This document has been created with the use of voice recognition technology. It may contain inaccuracies, missp (more content not included)... [facility] 11-27-2022 History of Presen t illness Narrative Images from the original note were not included. Radiation Oncology - Follow Up Note PATIENT NAME: PHOEBE Guerrero PATIENT DIAGNOSIS/PATIENT IDENTIFICATION: Ms. Guerrero is a 62-year-old woman with severe COPD, who is diagnosed with Stage IA3, [id number], non-small cell lung cancer arising from a [...] been following up with pulmonary therapy at [facility] and with her field service engineer Dr. Driver and using her nebulizers. She [...] COPD, who is diagnosed with Stage IA3, [id number], non-small cell lung cancer arising from a [...] the chest. She will follow with her field service engineer Dr. Driver to optimize her respiratory function [...] which included preparing to see the patient, vjyv-ae-hcls patient care, and counseling and educating the patient/family/caregiver. This document has been created with the use of voice recognition technology. It may contain inaccuracies, misspellings, inaccurate syntax or inappropriate word context that are a result of the inadequacies/shortcomings of said technology/software. documented in this encounter [facility] 11-18-2022 Miscellaneous Notes FYI--Dr. Driver's progress note is available in Care Everywhere. Dr. Kenyon's office note to be faxed over per his office. Julisa Pressley LPN Pt notified, CT canceled. Katerina working on records from Dr Kenyon and Dr Driver. Images/report being pushed from [facility]. Ced Victoria RN Yes, please cancel CT tomorrow. In addition to the images, please request any office notes from Dr. Kenyon as well as her field service engineer. Thanks! Abdi Pt called for CT 11/19/22. She reports CT completed 09/24/22 at [facility]. CT chest verified and will send images/report. LORENZO: Would you like to cancel CT? Please advise Ced Victoria RN documented in this encounter [facility] 06-26-2022 Evaluation note Encounter Date Diagnosis [...] History of lung cancer (ICD-10 - Z85.118) [facility] Other 02-21-2023 NoteHNO ID: [id number] Author: Abdi Israel MD Service: ? Author Type: Physician Type: Progress Notes Filed: 06/15/2022 8:09 PM Note Text: Radiation Oncology - Follow Up Note PATIENT NAME: PHOEBE Guerrero PATIENT DIAGNOSIS/PATIENT IDENTIFICATION: Ms. Guerrero is a 61-year-old woman with severe COPD, who is diagnosed with Stage IA3, [id number], non-small cell lung cancer arising from a [...] Aspergillus. These results were discussed with her field service engineer Dr. Cross and the patient was referred [...] oxygen via nasal cannula at 2 L rdiqpi-cqs-osxga. She notes that her cough is improved [...] COPD, who is diagnosed with Stage IA3, [id number], non-small cell lung cancer arising from a [...] for malignancy but show (more content not included)...[facility] 06-02-2022 History of Present illness Narrative* Abdi Israel MD - 06/02/2022 11:53 PM EST Radiation Oncology - Follow Up Note PATIENT NAME: PHOEBE Guerrero PATIENT Signed by: Abdi Israel MD I spent a total of 20 minutes on the date of the service which included preparing to see the patient, qmlz-ww-godw patient care, and counseling and educating the patient/family/caregiver. This document has been created with the use of voice recognition technology. It may contain inaccuracies, misspellings, inaccurate syntax or inappropriate word context that are a result of the inadequacies/shortcomings of said technology/software. documented in this encounter[facility] Evaluation note* Encounter Date Diagnosis Assessment [...] History of lung cancer (ICD-10 - Z85.118) [facility] Other 02-01-2023 Miscellaneous Notes* Telephone Encounter - Abdi Israel MD - 05/14/2022 10:40 PM EST Thanks! Abdi * Telephone Encounter - Kendal Lomax [facility] - 05/14/2022 1:59 PM EST Records faxed to Dr. Conde. Requested images be pushed to [facility] [place]. * Telephone Encounter - [...] yesterday showing fungal/aspergillus infection. Spoke with her field service engineer, Dr. Cross, today and agreed to refer [...] Thanks Julisa Pressley LPN documented in this encounterTri[facility]-28-[facility]23 NoteHNO ID: [id number] Author: Interface Note Service: ? Author Type: ? Type: Progress Notes Filed: 05/10/2022 4:17 AM Note Text: Epic Scheduled Downtime: 05/10/2022 1:00:00 AM to 05/10/2022 3:56:00 [facility]01-27-2023 History of Present illness Narrative* Interface Note - 05/09/2022 8:00 PM EST Epic Scheduled Downtime: 05/10/2022 1:00:00 AM to 05/10/2022 3:56:00 AM documented in this encounterTri[facility]01-27-2023 NoteHNO ID: [id number] Author: Anthony Sheppard APRN.SHIPPING AND RECEIVING CLERK Service: ? Author Type: Nurse Body Engineer Type: Anesthesia Procedure Notes Filed: 05/09/2022 8:41 AM Note Text: ANESTHESIOLOGY PROCEDURE NOTE Airway General Information Procedure Start Time/Medication Administration: 05/09/2022 8:23 AM Patient location during procedure: OR Timeout Performed Pre-procedure: timeout performed Consent Obtained: Yes Patient identity confirmed: arm band and patient Staffing SHIPPING AND RECEIVING CLERK: Anthony Sheppard APRN.SHIPPING AND RECEIVING CLERK Performed by: SHIPPING AND RECEIVING CLERK Indications and Patient Condition Indications for airway [...] no Airway not difficult SIGNATURE: Anthony Sheppard APRN.SHIPPING AND RECEIVING CLERK PATIENT NAME: Cara Guerrero DATE: May 09, 2022 TIME: 8:39 AM CSN: [id number] Nurse Note* Luz Maria Blanca RN - [...] Luz Maria Blanca RN documented in this encounterTrihealth [facility]01-27-2023 NotePatient Name: Cara Guerrero Procedure Date: [...] physician, the nurse, the anesthesiologist and the tafe registrar in the pre-procedure area in the procedure [...] in the SARAH. Navigation bronchoscopy utilizing the [employer] Robot was performed. The CT scan was [...] suggestive of benign (more content not included)... [facility]01-24-2023 NoteHNO ID: [id number] Author: RT Fox(R) Service: ? Author Type: [...] BY: RT Fox(R) May 06, 2022 8:53 [facility]01-16-2023 NoteHNO ID: [id number] Author: Vitor Farias MD Service: ? Author Type: Physician Type: Progress Notes Filed: 04/28/2022 4:35 PM Note Text: VIRTUAL VISIT PROGRESS NOTE This is a virtual visit using localbacon video visit. It required patient-provider interaction for [...] eating well. COPD managed locally by a field service engineer. HISTORY REVIEWED (electronic chart updated): PAST MEDICAL [...] Emphysema. Controlled and stable; managed by local field service engineer. I spent a total of 60 minutes on the date of the service which included preparing to see the patient, cigl-nu-wfwj patient care, completing clinical documentation, obtaining and/or reviewing separately obta (more content not included)...[id number] of Present illness Narrative* Vitor Farias MD - 04/28/2022 3:03 PM EST VIRTUAL VISIT PROGRESS NOTE This is a virtual visit using localb[employer] video visit. It required patient-provider interaction for [...] eating well. COPD managed locally by a field service engineer. HISTORY REVIEWED (electronic chart updated): PAST MEDICAL [...] Emphysema. Controlled and stable; managed by local field service engineer. I spent a total of 60 minutes on the date of the service which included preparing to see the patient, vbhv-fu-nfcp patient care, completing clinical documentation, obtaining and/or reviewing separately obtained history, performing a medically appropriate examination, counseling and educating the pat ient/family/caregiver, ordering medications, tests, or procedures, communicating with other HCPs (not separately reported), independently interpreting results (not separately reported), communicatingresults to the patient/family/caregiver, and care coordination (not separately reported) Vitor Farias MD April 28, 2022 documented in this encounterTrihealth [facility]01-11-2023 Miscellaneous Notes* Telephone Encounter - Alex Nash - 04/23/2022 9:58 AM EST Patient has been scheduled for both & confirmed appt day & time. Alex Nash * Telephone Encounter - Alex Nash - 04/23/2022 9:10 AM EST Called patient to schedule her for EKG & labs per e-mail. No answer, LMOV requesting a returnedphone call. Alex Nash documented in this encounterTrihealth [facility]01-10-2023 NoteHNO ID: [id number] Author: Vitor Farias MD Service: ? Author Type: Physician Type: Progress Notes Filed: 04/23/2022 3:51 PM Note Text: Bronchoscopy Request: Cleared for scheduling April 23, 2022 Please schedule patient for the following: Outpatient Visit: Bronch Only, visit not needed (last HANDP Date: 04/28/2022) Bronchoscopy Procedures: Navigation Bronchoscopy (Illumisite) Note to flight crew scheduler: See CC'd Chart routing comment Diagnosis/Reason for [...] try to get labs/EKG/COVID swab done at [facility] Does the pt need cardiac clearance?: No Is she on anticoagulants/anti-plt therapy?: No Nursing Considerations: (ie: detention, TB, respiratory isolation, clinical trial, Specific protocol etc.) none Additional notes to the roller leveler operator: Treated SELENE cancer, 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 Please try to access the PET avid area if possible. Consultation request/referral by: Abdi Israel MD ([facility]) Reviewed by: PHANI Farias MD April 22, 2022 3:49 PM Addendum: CBC with diff: WBC 6.81 03/02/2018 RBC 4.94 03/02/2018 Hemoglobin 14.7 03/02/2018 Hematocrit 44.5 03/02/2018 MCV 90.1 03/02/2018 MCH 29.8 03/02/2018 MCHC 33.0 03/02/2018 RDW-CV 12.4 03/02/2018 Platelet Count 234 03/02/2018 MPV 10.3 03/02/2018 Neut% 64.3 03/02/2018 Lymph% 25.3 03/02/2018 [place]% 9.1 03/02/2018 Eosin% 0.7 03/02/2018 Baso% 0.6 03/02/2018 Abs Neut (ANC) 4.36 03/02/2018 Abs [place] 0.62 03/02/2018 Abs Eosin 0.05 03/02/2018 Abs Baso 0.04 03/02/2018 Potassium Date Value Ref Range Status 03/02/2018 4.1 3.7 - 5.1 mmol/L Final Sodium Date Value Ref Range Status 03/02/2018 138 136 - 144 mmol/L Final BUN Date Value Ref Range Status 03/02/2018 9 7 - 21 mg/dL Final Creatinine Date Value Ref Range Status 03/02/2018 0.48 (L) 0.58 - 0.96 mg/dL Final[facility]23 History of Present illness Narrative* Vitor Farias [...] try to get labs/EKG/COVID swab done at [facility] Does the pt need cardiac clearance?: No Is she on anticoagulants/anti-plt therapy?: No Nursing Considerations: (ie: detention, TB, respiratory isolation, clinical trial, Specific protocol etc.) none Additional 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 Please try to access the PET avid area if possible. Consultation request/referral by: Abdi Israel MD ([facility]) Reviewed by: PHANI Farias MD April 22, 2022 3:49 PM Addendum: CBC with diff: WBC 6.81 03/02/2018 RBC 4.94 03/02/2018 Hemoglobin 14.7 03/02/2018 Hematocrit 44.5 03/02/2018 MCV 90.1 03/02/2018 MCH 29.8 03/02/2018 MCHC 33.0 03/02/2018 RDW-CV 12.4 03/02/2018 Platelet Count 234 03/02/2018 MPV 10.3 03/02/2018 Neut% 64.3 03/02/2018 Lymph% 25.3 03/02/2018 [place]% 9.1 03/02/2018 Eosin% 0.7 03/02/2018 Baso% 0.6 03/02/2018 Abs Neut (ANC) 4.36 03/02/2018 Abs [place] 0.62 03/02/2018 Abs Eosin 0.05 03/02/2018 Abs [...] - 0.96 mg/dL Final documented in this encounterTrihealth [facility]01-10-2023 Miscellaneous Notes* Telephone Encounter - Julisa [...] time. Julisa Pressley LPN documented in this encounterTrihealth [facility]12-03-2022 NoteHNO ID: [id number] Author: Abdi Israel MD Service: ? Author Type: Physician Type: Progress Notes Filed: 03/26/2022 4:59 AM Note Text: Radiation Oncology - Follow Up Note PATIENT NAME: Cara Guerrero PATIENT DIAGNOSIS/PATIENT IDENTIFICATION: Ms. Guerrero is a 61-year-old woman with severe COPD, who is diagnosed with Stage IA3, [id number], non-small cell lung cancer arising from a [...] posttreatment changes. She also met with her field service engineer Dr. Cross after her CT results were [...] COPD, who is diagnosed with Stage IA3, [id number], non-small cell lung cancer arising from a nodule in the left upper lobe of the lung adjacent to the aortic arch. Given her severe COPD/emphysema requiring supplemental oxygen and her other medical comorbidities, she was not felt to be a surgical candidate and opted for definitive non-operative management of her early stage (more content not included)...[facility]12-02-2022 History of Present illness Narrative* Abdi Israel MD - 03/14/2022 11:44 PM EST Radiation Oncology - Follow Up Note PATIENT NAME: Cara Guerrero PATIENT Signed by: Abdi Israel MD I spent a total of 20 minutes on the date of the service which included preparing to see the patient, fvau-lk-kgus patient care, and counseling and educating the patient/family/caregiver. This document has been created with the use of voice recognition technology. It may contain inaccuracies, misspellings, inaccurate syntax or inappropriate word context that are a result of the inadequacies/shortcomings of said technology/software. documented in this encounterTrihealth [facility]11-25-2022 NoteHNO ID: [id number] Author: RT Fox(R) Service: ? Author Type: [...] 0736 PATIENT DISCHARGED TO: Ambulatory patient, left [place] department area. A Diagnostic radioactive procedure has taken place, with no further precautions necessary other than routine body substance precautions. More information regarding radiation safety can be found using this link: [email or web address] SIGNATURE: RT Fox(R) PATIENT NAME: Cara Guerrero DATE: March 07, 2022 TIME: 7:51 AM PAGER/CONTACT #:[facility]11-25-2022 NoteHNO ID: [id number] Author: Stacia Russell RN Service: ? Author [...] Guerrero DATE: March 07, 2022 TIME: 7:39 [facility]11-11-2022 Miscellaneous Notes* Telephone Encounter - Alex Nash [...] then follow-up to review documented in this encounterTrihealth [facility]11-10-2022 Miscellaneous Notes* Telephone Encounter - Julisa [...] then follow-up to review documented in this encounterTrihealth [facility]02-24-2022 History of Present illness Narrative* Abdi Israel MD - 06/06/2021 4:50 PM EST Radiation Oncology - Follow Up Note PATIENT NAME: Caar Guerrero PATIENT DIAGNOSIS/PATIENT IDENTIFICATION: Ms. Guerrero is a 60-year-old woman with severe COPD, who is diagnosed with Stage IA3, [id number], non-small cell lung cancer arising from a [...] COPD, who is diagnosed with Stage IA3, [id number], non-small cell lung cancer arising from a [...] which included preparing to see the patient, xitr-eo-pxcm patient care and counseling and educating the patient/family/caregiver. This document has been created with the use of voice recognition technology. It may contain inaccuracies, misspellings, inaccurate syntax or inappropriate word context that are a result of the inadequacies/shortcomings of said technology/software. documented in this encounterTrihealth M[facility]10-01-2021 NoteChief Complaint consultation for nevus HPI Staff 60 year old female presents on consultation from Dr. Kenyon for right lower leg fresh colored skin lesion. Present for 4 months. Scabbed area from recent trama. Denies itching. Also notes dark pigmentedlesion to right moravian. Present 4 months. Does not bleed or itch. History of Present Illness 60 yo female with h/o COPD, previous lung cancer, on oxygen; referred for changing skin lesions; right lower extremity lesion enlarging; recently scratched so scabbed over; no bleeding; right moravian lesion with small scab, no pain or [...] nodes, cyanosis, clubbing. Skin: no rashes right moravian with 4 mm raised, erythematous lesion with [...] infarction: Brother. Cardiac arrest: Mother, Father and Sister.[facility] HospitalComment on above:Result Comment: Electronically Signed By: JIM DAVENPORT, Jose Domínguez\Date and Time Signed: 01/11/21 11:20 [id number] History general Narrative - Reported* Type Description Date Medical History COPD Surgical History appendectomy Surgical History csection Hospitalization History PNA at [email or web address] 05/2011 [facility] Other Evaluation note* Diagnosis Non-small cell cancer of left lung (HCC)- Primary Neoplasm of lung Neoplasm of unspecified nature of respiratory system [facility] Ne[facility] of lung- Primary Neoplasm of unspecified nature of respiratory system [facility] Diagnosis Non-small cell cancer of left lung (HCC)- Primary [facility] Diagnosis Lung mass- Primary Swelling, mass, or lump in chest [facility] Diagnosis Preoperative examination- Primary Preoperative examination, unspecified Bronchiolar disease Other diseases of trachea and bronchus [facility] Diagnosis Non-small cell cancer of left lung (HCC)- Primary Lung mass Swelling, mass, or lump in chest Centrilobular emphysema (HCC) Other emphysema Bronchiolar disease Other diseases of trachea and bronchus [facility] Diagnosis Bronchiolar disease Other diseases of trachea and bronchus Lung nodule Solitary pulmonary nodule [facility] Diagnosis Aspergillus pneumonia (HCC)- Primary Aspergillosis Non-small cell cancer of left lung (HCC) [facility] Diagnosis Non-small cell cancer of left lung (HCC)- Primary documented in this encounter [facility] noteNo [employer] Other Evaluation note* Diagnosis Neoplasm of lung- Primary Neoplasm of unspecified nature of respiratory system documented in this encounter [facility] (narrative)* Diagnostic Procedure Only (Routine) - Additional Clinical Info Needed Specialty Diagnoses / Procedures Referred By Contac t Referred To Contact MOLECULAR & FUNCTIONAL IMAGING Diagnoses Neoplasm of lung Procedures NM PET/CT SKULL-THIGH INITIAL PET IMAGING CT ATTENUATION SKULL BASE MID-THIGH Abdi Israel MD [address] [place] [address] [place] [address] Molecular & Functional Imaging [address] [place] [address] Referral ID Status Reason Start Date Expiration Date Visits Requested Visits Authorized [id number] Additional Clinical Info Needed Auto-Generat ed Referral 03/22/2023 1 1 [facility] Summary Purpose Family History No Family History Records FoundNo Family History Records FoundNo Family History Records FoundNo Family History Records FoundNo Family History Records FoundNo Family History Records FoundNo Family History Records FoundNo Family History Records Found Advance Directives No Advanced Directives Records FoundDocuments on File Type Date Recorded 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 Advance Directive(s) Advance Directive(s) 03/19/2018 8:37 AM Reason for Referral Specialty Diagnoses / Procedures Referred By Contac t Referred To Contact CT IMAGING Diagnoses Non-small cell cancer of left lung (HCC) Neoplasm of lung Procedures CT CHEST W IVCON DIAGNOSTIC COMPUTED TOMOGRAPHY THORAX W/CONTRAST Abdi Israel MD [address] [place] [address] [place] [address] Ct Imaging Referral ID Status Reason Start Date Expiration Date Visits Requested Visits Authorized [id number] Pending Review Auto-Generat ed Referral 06/06/2022 07/06/2022 1 1 Specialty Diagnoses / Procedures Referred By Contac t Referred To Contact CT IMAGING Diagnoses Lung mass Procedures CT CHEST WO IVCON DIAGNOSTIC COMPUTED TOMOGRAPHY THORAX W/O CNTRST Vitor Farias MD [address] [place] [address] Ct Imaging Referral ID Status Reason Start Date Expiration Date Visits Requested Visits Authorized [id number] Pending Review Auto-Generat ed Referral 04/22/2022 05/22/2023 1 1 Specialty Diagnoses / Procedures Referred By Contac t Referred To Contact [facility] Diagnoses Lung mass Procedures ECG COMPLETE ECG ROUTINE ECG W/LEAST 12 LDS W/I&[place] [address] [place], [place] [id number] [place] [id number] Referral ID Status Reason Start Date Expiration Date Visits Requested Visits Authorized [id number] Pending Review Auto-Generat ed Referral 04/22/2022 04/22/2023 1 1 Specialty Diagnoses / Procedures Referred By Contac t Referred To Contact Infectious Diseases Diagnoses Aspergillus pneumonia (HCC) Non-small cell cancer of left lung (HCC) Procedures CONSULT TO INFECTIOUS DISEASES Abdi Israel MD [address] [place] [address] [place] [address] Referral ID Status Reason Start Date Expiration Date Visits Requested Visits Authorized [id number] Ref Not Required PCP Requested Referral 05/14/2022 05/14/2023 1 1 Specialty Diagnoses / Procedures Referred By Contac t Referred To Contact CT IMAGING Diagnoses Neoplasm of lung Procedures CT CHEST W IVCON DIAGNOSTIC COMPUTED TOMOGRAPHY THORAX W/CONTRAST Abdi Israel MD [address] [place] [address] [place] [address] Ct Imaging [place] [address] Referral ID Status Reason Start Date Expiration Date Visits Requested Visits Authorized [id number] Pending Review Auto-Generat ed Referral 05/13/2023 12/27/2023 1 1 Medications Administered Section Inactive Administered Medications - up to 3 most recent administrations Medication Order MAR Action Action Date Dose Rate Site NaCl 0.9% iv infusion 5-30 mL/hr, INTRAVENOUS, CONTINUOUS, Starting on 05/09/22 at 0730, Until 05/10/22 at 0304, Preprocedure Additional Source Comments INFORMATION SOURCE (unrecogn ized section and content) DATE CREATED AUTHOR 10/06/2017 [facility] DATE CREATED AUTHOR AUTHOR'S ORGANIZ ATION 10/09/2017 [facility] DATE CREATED AUTHOR AUTHOR'S ORGANIZ ATION 03/22/2018 [facility] DATE CREATED AUTHOR AUTHOR'S ORGANIZ ATION 03/26/2021 [employer] [facility] DATE CREATED AUTHOR AUTHOR'S ORGANIZ ATION 04/29/2022 [facility] DATE CREATED AUTHOR AUTHOR'S ORGANIZ ATION 09/19/2022 [facility] DATE CREATED AUTHOR AUTHOR'S ORGANIZ ATION 12/10/2022 [facility] DATE CREATED AUTHOR AUTHOR'S ORGANIZ ATION 04/11/2023 [facility] EPIC Source Comments (unrecognize d section and content) In the event this informatio n is protected by the Federal Confidentiality of Alcohol and Drug Abuse Patient Records regulations: The Federal rules restrict any use of the information to criminally investigate or prosecute any alcohol or drug abuse patient.[facility] the event this information is protected by the Federal Confidentiality of Alcohol and Drug Abuse Patient Records regulations: The Federal rules restrict any use of the information to criminally investigate or prosecute any alcohol or drug abuse patient.[facility] Hospital[facility] the event this information is protected by the Federal Confidentiality of Alcohol and Drug Abuse Patient Records regulations: The Federal rules restrict any use of the information to criminally investigate or prosecute any alcohol or drug abuse patient.[facility] the event this information is protected by the Federal Confidentiality of Alcohol and Drug Abuse Patient Records regulations: The Federal rules restrict any use of the information to criminally investigate or prosecute any alcohol or drug abuse patient.[facility] HospitalIn the event this information is protected by the Federal Confidentiality of Alcohol and Drug Abuse Patient Records regulations: The Federal rules restrict any use of the information to criminally investigate or prosecute any alcohol or drug abuse patient.[facility] Hospital[facility] the event this information is protected by the Federal Confidentiality of Alcohol and Drug Abuse Patient Records regulations: The Federal rules restrict any use of the information to criminally investigate or prosecute any alcohol or drug abuse patient.[facility] HospitalIn the event this information is protected by the Federal Confidentiality of Alcohol and Drug Abuse Patient Records regulations: The Federal rules restrict any use of the information to criminally investigate or prosecute any alcohol or drug abuse patient.[facility] Hospital[facility] the event this information is protected by the Federal Confidentiality of Alcohol and Drug Abuse Patient Records regulations: The Federal rules restrict any use of the information to criminally investigate or prosecute any alcohol or drug abuse patient.[facility] HospitalIn the event this information is protected by the Federal Confidentiality of Alcohol and Drug Abuse Patient Records regulations: The Federal rules restrict any use of the information to criminally investigate or prosecute any alcohol or drug abuse patient.[facility] HospitalIn the event this information is protected by the Federal Confidentiality of Alcohol and Drug Abuse Patient Records regulations: The Federal rules restrict any use of the information to criminally investigate or prosecute any alcohol or drug abuse patient.[facility] HospitalIn the event this information is protected by the Federal Confidentiality of Alcohol and Drug Abuse Patient Records regulations: The Federal rules restrict any use of the information to criminally investigate or prosecute any alcohol or drug abuse patient.[facility] the event this information is protected by the Federal Confidentiality of Alcohol and Drug Abuse Patient Records regulations: The Federal rules restrict any use of the information to criminally investigate or prosecute any alcohol or drug abuse patient.[facility] Hospital[facility] the event this information is protected by the Federal Confidentiality of Alcohol and Drug Abuse Patient Records regulations: The Federal rules restrict any use of the information to criminally investigate or prosecute any alcohol or drug abuse patient.[facility] HospitalIn the event this information is protected [...] or prosecute any alcohol or drug abuse patient.[facility] Reason for Visit (unrecogniz ed section and content) Reason Comments Lung Cancer Reason Comments Orders Reason Comments Orders Reason Comments Lung Cancer Reason Comments Appointment PreOp Bronch Reason Comments Patient Update Appointment Reason Comments Lung Cancer Lung Mass Reason Comments Appointment Specialty Diagnoses / Procedures Referred By Contac t Referred To Contact ADMITTING Diagnoses Bronchiolar disease Procedures [facility] INCL FLUOR GDNCE DX W/CELL WASHG SPX BRONCHOSCOPY [facility] [address] [place] [address] Referral ID Status Reason Start Date Expiration Date Visits Re quested Visits Authorized [id number] 1 1 Reason Comments Appointment Care Teams (unrecognized sec tion and content) 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 Relationship Specialty Start Date End Date Adithya Kenyon MD [address] [id number] PCP - General Family Practice 02/25/18 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 Relationship Specialty Start Date End Date Adithya Kenyon MD [address] [id number] PCP - General Family Medicine 02/25/18 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 Relationship Specialty Start Date End Date Adithya Kenyon MD [address] [place] [address] PCP - General Family Medicine 02/25/18 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 Relationship Specialty Start Date End Date Adithya Kenyon MD [address] [id number] PCP - General Family Medicine 02/25/18 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 Relationship Specialty Start Date End Date Adithya Kenyon MD [address] [place] [address] PCP - General Family Medicine 02/25/18 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 Relationship Specialty Start Date End Date Adithya Kenyon MD [address] [place] [address] PCP - General Family Medicine 02/25/18 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 Relationship Specialty Start Date End Date Adithya Kenyon MD [address] [place] [address] PCP - General Family Medicine 02/25/18 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 Relationship Specialty Start Date End Date Adithya Kenyon MD [address] [place] [address] PCP - General Family Medicine 02/25/18 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 Relationship Specialty Start Date End Date Adithya Kenyon MD [address] [place] [address] PCP - General Family Medicine 02/25/18 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 Relationship Specialty Start Date End Date Adithya Kenyon MD PCP - General Family Medicine 02/25/18 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 [facility] HospitalThe [employer] [facility] provides no warranty or guarantee of the accuracy or completeness of information in this document.
--- NOTE | 2023-05-07 08:05 | RESP.RT ---
2L nc at all times
[2023-05-07] MEDS: 0.9 % SODIUM CHLORIDE 1,000 ML 1000 ML IV ×2 (08:08→12:25)
[2023-05-07] MEDS: METHYLPREDNISOLONE SOD SUCC PF 125 MG/2 ML VIAL IVP ×3 (08:08→21:29)
[2023-05-07 08:09] LABS: Adenovirus NOT DETECTED (NOT DETECTE); Bordetella parapertussis NOT DETECTED (NOT DETECTE); Coronavirus 229E NOT DETECTED (NOT DETECTE); Coronavirus HKU1 NOT DETECTED (NOT DETECTE); Coronavirus NL63 NOT DETECTED (NOT DETECTE); Coronavirus OC43 NOT DETECTED (NOT DETECTE); Human Metapneumovirus NOT DETECTED (NOT DETECTE); Influenza A NOT DETECTED (NOT DETECTE); Influenza B NOT DETECTED (NOT DETECTE); Mycoplasma pneumoniae NOT DETECTED (NOT DETECTE); Parainfluenza Virus 1 NOT DETECTED (NOT DETECTE); Parainfluenza Virus 2 NOT DETECTED (NOT DETECTE); Parainfluenza Virus 3 NOT DETECTED (NOT DETECTE); Parainfluenza Virus 4 NOT DETECTED (NOT DETECTE); Respiratory Syncytial Virus NOT DETECTED (NOT DETECTE); SARS-CoV-2 NOT DETECTED (NOT DETECTE)
[2023-05-07 08:13] LABS: Anion Gap 10.4; Calcium 9.7 mg/dL (8.5-10.1); Carbon Dioxide 37.2 mmol/L (21.0-32.0); Chloride 95 mmol/L (98-107); Estimated GFR (African America >60 (>=60); Estimated GFR (Non-African Ame >60 (>=60); Glucose 119 mg/dL (74-106); Potassium 3.6 mmol/L (3.5-5.1); Sodium 139 mmol/L (136-145); Troponin I High Sensitivity 5.3 pg/mL (4.0-51.3)
--- NOTE | 2023-05-07 08:13 | XR_ITS ---
The [address] [address] Patient Name: PHOEBE STANLEY MRN: [id number] date: 1960 Sex: F Assigned Patient Location: [place] Current Patient Location: [place] Accession/Order Number: [id number] Exam Date: 05/07/2023 08:05 Report Date: 05/07/2023 08:22 At the request of: LUZ ANDINO Procedure: XR chest 1V EXAMINATION: XR chest 1V HISTORY: shortness of breath COMPARISON: XR chest 03/17/2023 FINDINGS: LUNGS: Hyperexpanded lungs with chronic lucency within upper lung regions, right greater than left suggestive of COPD. VASCULATURE: No increased pulmonary vasculature. PLEURA: Blunting of costophrenic angles bilaterally; secondary hyperexpansion and flattening of diaphragms versus small amount of pleural fluid. CARDIAC: No cardiomegaly or cardiac silhouette abnormality. MEDIASTINUM: No visible mass or adenopathy. BONES: No fracture or visible bone lesion. OTHER: Negative. XR/XR chest 1V IMPRESSION: 1. Grossly stable, chronic marked COPD. 2. Suspect small bilateral pleural effusions. No convincing acute infiltrates. Electronically authenticated by: LINDA TANG Date: 05/07/2023 08:22
[2023-05-07 08:17] LABS: Lactate/Lactic Acid 1.6 mmol/L (0.4-2.0)
--- NOTE | 2023-05-07 08:25 | P.HP_ITS ---
H&P: HPI History of Present Illness Chief complaint: SHORTNESS OF BREATH Narrative: Patient with severe oxygen dependent COPD has been struggling at home over the last week. Last 3 to 4 days she has been changed antibiotics from doxycycline to cefdinir without any improvement. In fact her breathing has become more labored. In the ER her oxygen saturation was 86% on her normal to the 2 L. Given aggressive aerosols and her oxygen saturation did improve. When I saw her she still having some labored breathing in the emergency room. Will admit to [facility] Review of Systems ROS Status of ROS 10 or more systems reviewed and unremark able except as noted in history and below [facility] Medical History (Updated 05/07/23 @ 07:53 by Kamlesh Schmidt) Community acquired pneumonia ?J18.9 - Pneumonia, unspecified organism (ICD-10) Acute infective exacerbation of chronic obstructive airway disease ?J44.1 - Chronic obstructive pulmonary disease with (acute) exacerbation (ICD-10) Acute bronchitis ?J20.9 - Acute bronchitis, unspecified (ICD-10) Acute and chronic respiratory failure with hypoxia ?J96.21 - Acute and chronic respiratory failure with hypoxia (ICD-10) Iron deficiency anemia ?D50.9 - Iron deficiency anemia, unspecified (ICD-10) Sinus tachycardia ?R00.0 - Tachycardia, unspecified (ICD-10) Acute exacerbation of chronic obstructive pulmonary disease ?J44.1 - Chronic obstructive pulmonary disease with (acute) exacerbation (ICD-10) Chronic obstructive pulmonary disease ?J44.9 - Chronic obstructive pulmonary disease, unspecified (ICD-10) Family History (Updated 09/22/22 @ 21:17 by Veronika Almeida) Other Family history of myocardial infarction Social History (Updated 09/22/22 @ 21:18 by Veronika Almeida) Within the past year, how often did you have a drink containing alcohol: never Score interpretation: A score less than 3 is consistent with normal alcohol consumption. Smoking status: Former smoker Non-prescribed substance use: denies use Previous occupational history: disabled Highest level of school completed/degree received: GED or equivalent Are you now , , , , never or living with a partner: In a typical week, how many times do you talk on the telephone with family, friends, or neighbors: 3 or more times per week How often do you get together with friends or relatives: 3 or more times per week How often do you attend taoism or bahai services: 1-3 times per year Do you belong to any clubs or organizations such as taoism groups unions, fraternal or athletic groups, or school groups: no Total score: 2 Score interpretation: A score of greater than or equal to 2 indicates the lowest level of social isolation. Little interest or pleasure in doing things: not at all Feeling down, depressed, or hopeless: not at all Feel stressed/tense/nervous/anxious/difficulty sleeping: not at all Do you think of yourself as: straight/heterosexual Gender Identity: female Meds Home Medications and Allergies Home Medications Medication Instructions Recorded Confirmed Type budesonide 0.5 mg/2 mL suspension 0.5 mg inhalation Q12H shortness 09/22/22 05/07/23 History for nebulization of breath or wheezing ipratropium 0.5 mg-albuterol 3 mg 3 ml inhalation Q6H PRN shortness 09/22/22 05/07/23 History (2.5 mg base)/3 mL nebulization of breath soln montelukast 10 mg tablet 10 mg PO .hs 09/22/22 05/07/23 History tiotropium 2.5 mcg-olodaterol 2.5 2 puff inhalation Q24H 09/22/22 05/07/23 History mcg/actuation mist for inhalation (Stiolto Respimat) albuterol sulfate 90 mcg/actuation 2 inh inhalation QID PRN SOB 02/07/23 05/07/23 History aerosol inhaler (ProAir HFA) sodium chloride 3 % for 4 ml inhalation Q8H PRN SOB 02/07/23 05/07/23 History nebulization (NebuSal) theophylline 400 mg 400 mg PO DAILY 02/07/23 05/07/23 History tablet,extended release 24 hr fluticasone propionate 50 2 spray intranasal QD PRN allergy 05/07/23 05/07/23 History mcg/actuation nasal symptoms spray,suspension Allergies Allergy/AdvReac Type Severity Reaction Status Date / Time No Known Drug Allergies Allergy Verified 05/07/23 12:14 Exam Constitutional Vital Signs, click to edit/add: Last Vital Signs Temp 98.6 F 05/07/23 07:19 Pulse 140 H 05/07/23 07:57 Resp 32 H 05/07/23 07:19 BP 134/78 05/07/23 07:27 Pulse Ox 97 05/07/23 07:59 O2 Del Method Nasal Cannula 05/07/23 07:59 O2 Flow Rate 2 05/07/23 07:59 Documenting provider has reviewed patient's vital signs: yes Common normals: apparent distress (Mild to moderate respiratory distress with some conversational dyspnea) Chest Common normals: inspection of chest normal Respiratory Common normals: no retractions; abnormal respiratory effort Auscultation: rhonchi, wheezes and diminished lung sounds Cardio Common normals: regular rhythm; irregular rate Rate: tachycardic GI Common normals: Normal to inspection, nondistended, normoactive bowel sounds present Neuro Common normals: oriented x3, CN's II-XII intact bilaterally and moves all extremities Results Labs Labs: Short CBC 05/07/23 Range/Units 07:37 WBC 17.1 H (4.0-11.0) 10^3/uL Hgb 12.8 (12.0-16.0) g/dL Hct 41.8 (36.0-48.0) % Plt Count 270 (150-450) 10^3/uL BMP 05/07/23 07:37 Sodium 139 Potassium 3.6 Chloride 95 L Carbon Dioxide 37.2 H BUN 6.0 L Creatinine 0.50 L Glucose 119 H Calcium 9.7 Assessment and Plan Assessment and Plan (1) Acute exacerbation of chronic obstructive pulmonary disease (COPD): (2) Tachycardia: (3) Failure of outpatient treatment: (4) Asthma exacerbation in COPD: (5) Tachypnea: Plan Sinus tachycardia, respiratory distress, leukocytosis with left shift, acute hypoxia secondary to acute exacerbation of COPD with CO2 retention history-so far chest x-ray is clear maybe little fluid in the bases. No egophony on exam that would represent pneumonia but will treat patient aggressively with IV antibiotics, IV steroids Xopenex secondary to the tachycardia and try IPV treatments. If patient's symptoms progress may need Vapotherm, check ABG, check theophylline level Based on her history of prolonged inpatient requiring treatment. Failed outpatient treatment of the last 5 days with 2 different antibiotics, cefdinir and doxycycline-maintain patient as an inpatient status, likely here at least 3 days.
[2023-05-07 08:51] LABS: Theophylline <2.0 ug/mL (10.0-20.0)
[2023-05-07 08:53] LABS: Magnesium 1.7 mg/dL (1.8-2.4)
[2023-05-07] MEDS: IPRATROPIUM/ALBUTEROL SULFATE 3 ML AMPUL.NEB IH (09:27)
[2023-05-07 09:53] LABS: Base Excess ABG 6.6 mmol/L (-2.0-2.0); HCO3 ABG 32.8 mmol/L (22.0-26.0); Oxygen Saturation ABG 92.7 %; PO2 ABG 66.5 mmHg (80.0-100.0); pH ABG 7.311 (7.350-7.450)
[2023-05-07 09:54] LABS: Allen Test POSITIVE (POSITIVE); Liters per Minute 2; O2 Mode NC; Puncture Site RR
[2023-05-07 09:55] LABS: ABG PCO2 65.1 mmHg (35.0-45.0)
[2023-05-07 10:04] LABS: Human Rhinovirus/Enterovirus DETECTED (NOT DETECTE)
[2023-05-07 10:05] LABS: Lactate/Lactic Acid 1.4 mmol/L (0.4-2.0)
[2023-05-07] MEDS: LEVALBUTEROL HCL 0.63 MG/3 ML VIAL.NEB IH ×3 (11:34→23:40)
[2023-05-07] MEDS: IPRATROPIUM BROMIDE 0.5 MG/2.5 ML VIAL.NEB IH ×3 (11:34→23:40)
[2023-05-07] MEDS: ENSURE HP 237 ML LIQUID PO ×2 (12:24→21:23)
[2023-05-07] MEDS: PIPERACILLIN SODIUM/TAZOBACTAM 3.375 GM in 0.9 % SODIUM CHLORIDE 50 ML IV ×2 (12:24→21:23)
[2023-05-07] MEDS: PROSTAT 15 GM PROTEIN/100 CAL 30 ML LIQUID PACKET PO ×2 (12:24→21:23)
[2023-05-07] MEDS: THEOPHYLLINE 300 MG TAB.ER.12H PO ×2 (12:25→21:23)
[2023-05-07] MEDS: LACTATED RINGER'S SOLUTION 1,000 ML 100 ML IV (15:09)
[2023-05-07] MEDS: FLUTICASONE PROPIONATE 50 MCG NASAL SPRAY 2 SPRAY NS (15:11)
--- NOTE | 2023-05-07 15:30 | SWNOTE1 ---
SW met with pt to discuss dc needs. Pt lives at home with and grandson. Pt has a walker at home and only uses when she is feeling weak. Pt wears home oxygen at 2 liters chronically. Pt gets her home oxygen from [facility]. Pt denies having any discharge needs at this time. SW to follow as needed.
[2023-05-07] MEDS: SODIUM CHLORIDE 0.9% INHALATION 3 ML NEB 6 ML IH ×2 (16:14→23:40)
[2023-05-07] MEDS: NYSTATIN 500,000 UNIT/5 ML ORAL.SUSP 500000 UNIT PO ×2 (16:41→21:23)
[2023-05-07] MEDS: LEVOFLOXACIN IN DEXTROSE 5 % 750 MG/150 ML IV.SOLN 100 MG IV (16:41)
[2023-05-07] MEDS: MONTELUKAST SODIUM 10 MG TABLET PO (21:23)
[2023-05-08] VITALS (12 sets, daily range): BP systolic 119–134; BP diastolic 68–75; PULSE 115–138; RESP 18–22; TEMP 36.4; O2SAT 91–99
[2023-05-08] MEDS: LACTATED RINGER'S SOLUTION 1,000 ML 100 ML IV (01:44)
[2023-05-08] MEDS: METHYLPREDNISOLONE SOD SUCC PF 125 MG/2 ML VIAL IVP ×4 (01:45→21:09)
[2023-05-08] MEDS: LEVALBUTEROL HCL 0.63 MG/3 ML VIAL.NEB IH ×4 (04:47→22:25)
[2023-05-08] MEDS: IPRATROPIUM BROMIDE 0.5 MG/2.5 ML VIAL.NEB IH ×4 (04:47→22:25)
[2023-05-08] MEDS: SODIUM CHLORIDE 0.9% INHALATION 3 ML NEB 6 ML IH ×3 (04:48→22:25)
[2023-05-08 05:20] LABS: Basophils Percent Auto 0.1 % (0.2-2.0); Hemoglobin 11.4 g/dL (12.0-16.0); Immature Granulocytes Abs Auto 0.06 10^3/uL (0.00-0.03); Immature Granulocytes Pct Auto 0.5 % (0.0-0.5); Lymphocytes Absolute Auto 0.4 10^3/uL (1.2-3.8); Lymphocytes Percent Auto 3.2 % (20.5-60.0); Mean Corpuscular HGB Conc 30.8 g/dL (29.9-35.2); Mean Corpuscular Hemoglobin 27.8 pg (26.7-34.0); Mean Corpuscular Volume 90.2 fL (81.0-99.0); Mean Platelet Volume 9.6 fL (9.5-13.5); Monocytes Absolute Auto 0.1 10^3/uL (0.3-0.8); Monocytes Percent Auto 1.1 % (1.7-12.0); Neutrophils Absolute Auto 12.4 10^3/uL (1.4-6.5); Neutrophils Percent Auto 95.1 % (43.0-75.0); Platelet Count 237 10^3/uL (150-450); Red Cell Distribution Width 12.9 % (11.0-15.0)
[2023-05-08] MEDS: NYSTATIN 500,000 UNIT/5 ML ORAL.SUSP 500000 UNIT PO ×4 (05:26→20:53)
[2023-05-08] MEDS: PIPERACILLIN SODIUM/TAZOBACTAM 3.375 GM in 0.9 % SODIUM CHLORIDE 50 ML IV ×3 (05:26→20:53)
[2023-05-08 06:03] LABS: Alanine Aminotransferase 23 U/L (14-59); Albumin Globulin Ratio 0.7; Albumin Level 2.9 g/dL (3.4-5.0); Alkaline Phosphatase 86 U/L (46-116); Anion Gap 5.4; Aspartate Amino Transferase 19 U/L (15-37); BUN Creatinine Ratio 14.6; Bilirubin Total 0.2 mg/dL (0.2-1.0); Calcium 9.8 mg/dL (8.5-10.1); Carbon Dioxide 35.8 mmol/L (21.0-32.0); Chloride 100 mmol/L (98-107); Estimated GFR (African America >60 (>=60); Estimated GFR (Non-African Ame >60 (>=60); Globulin 4.3 g/dL; Glucose 182 mg/dL (74-106); Potassium 3.2 mmol/L (3.5-5.1); Sodium 138 mmol/L (136-145); Total Protein 7.2 g/dL (6.4-8.2)
--- NOTE | 2023-05-08 08:02 | P.PN_ITS ---
Progress Note: Subjective Subjective Interval history: Pain with activity persisting. Cough with some sputum production. Sputum sample obtained previous day. Exam Constitutional Vital Signs, click to edit/add: Last Vital Signs Temp 97.6 F 05/08/23 05:30 Pulse 115 H 05/08/23 07:56 Resp 18 05/08/23 05:30 BP 119/73 05/08/23 05:30 Pulse Ox 92 L 05/08/23 05:30 O2 Del Method Nasal Cannula 05/08/23 05:30 O2 Flow Rate 2 05/08/23 05:30 Documenting provider has reviewed patient's vital signs: yes Common normals: apparent distress (Mild to moderate respiratory distress with some conversational dyspnea) Chest Common normals: inspection of chest normal Respiratory Common normals: no retractions; abnormal respiratory effort Auscultation: rhonchi, wheezes and diminished lung sounds (Somewhat better air exchange) Cardio Common normals: regular rhythm; irregular rate Rate: tachycardic GI Common normals: Normal to inspection, nondistended, normoactive bowel sounds present Neuro Common normals: oriented x3, CN's II-XII intact bilaterally and moves all extremities Progress Note: Objective Labs Labs: Short CBC 05/07/23 05/08/23 Range/Units 07:37 04:36 WBC 17.1 H 13.0 H (4.0-11.0) 10^3/uL Hgb 12.8 11.4 L (12.0-16.0) g/dL Hct 41.8 37.0 (36.0-48.0) % Plt Count 270 237 (150-450) 10^3/uL BMP 05/07/23 05/08/23 07:37 04:36 Sodium 139 138 Potassium 3.6 3.2 L Chloride 95 L 100 Carbon Dioxide 37.2 H 35.8 H BUN 6.0 L 6.0 L Creatinine 0.50 L 0.41 L Glucose 119 H 182 H Calcium 9.7 9.8 Liver Function 05/08/23 Range/Units 04:36 Total Bilirubin 0.2 (0.2-1.0) mg/dL AST 19 (15-37) U/L ALT 23 (14-59) U/L Alkaline Phosphatase 86 (46-116) U/L Albumin 2.9 L (3.4-5.0) g/dL Progress Note: A&P Assessment and Plan (1) Acute exacerbation of chronic obstructive pulmonary disease (COPD): (2) Tachycardia: (3) Failure of outpatient treatment: (4) Asthma exacerbation in COPD: (5) Tachypnea: Plan Sinus tachycardia, respiratory distress, leukocytosis with left shift, acute hypoxia secondary to acute exacerbation of COPD with CO2 retention history-fail ed outpatient treatment with cefdinir.-so far chest x-ray is clear maybe little fluid in the bases. No egophony on exam that would represent pneumonia but will treat patient aggressively with IV antibiotics, IV steroids Xopenex secondary to the tachycardia and try IPV treatments -patient tolerated IPV treatments well. Check on sputum sample tomorrow. If ambulating tomorrow with less dyspnea and less sputum production, possible discharge to home. Based on her history of prolonged inpatient requiring treatment. Failed outpatient treatment of the last 5 days with 2 different antibiotics, cefdinir and doxycycline-maintain patient as an inpatient status, likely here at least 3 days.
[2023-05-08] MEDS: POTASSIUM CHLORIDE 10 MEQ ER TABLET 20 MEQ PO ×2 (08:40→20:52)
[2023-05-08] MEDS: THEOPHYLLINE 300 MG TAB.ER.12H PO ×2 (08:40→20:52)
[2023-05-08] MEDS: PROSTAT 15 GM PROTEIN/100 CAL 30 ML LIQUID PACKET PO ×2 (08:40→20:53)
[2023-05-08] MEDS: ENSURE HP 237 ML LIQUID PO ×2 (08:40→20:52)
--- NOTE | 2023-05-08 11:17 | RESP.RT ---
Heart rate maintained at 140 during tx. NC 2L
--- NOTE | 2023-05-08 15:46 | PT.DAILY ---
Physical Therapy Daily Note PT Daily Note/Assess Start: 05/08/23 15:28 Freq: Status: Active Protocol: Document 05/08/23 15:29 [id number] (Rec: 05/08/23 15:44 [id number]) Physical Therapy Daily Note/Assessment Time In/Time Out Time In 15:13 Time Out 15:25 Subjective Subjective Patient received seated EOB on 2L O2. States she is doing better this afternoon. Hoping to go home tomorrow. States she is walking around the room and to bathroom by herself. Therapeutic Activity Time Therapeutic Activity Minutes (minutes) 12 Therapeutic Activity Units 1 Therapeutic Activity Treatment Therapeutic Activity Comments Patient performed sit to stand SBA +1, Pre walk O2 level 95% . Ambulated holding IV pole with R hand. Patient ambulated ~140 feet x1 w/ SBA +1. No LOB, but SOB after ~8 lap, patient requests to continue for 2 more laps completing 140 feet. Patient seated EOB after walking. O2 level at 89 % after walking, 02 level at 94% after 4 minutes seated therapeutic rest break. Total Physical Therapy Time Total Therapy Minutes 12 Total Physical Therapy Units 1 Summary Daily Note Summary Patient sit to stand SBA +1, patient I in pushing IV pole and navigating turns. Patient with SOB after ambulation. No LOB noted. Patient with increased ambulation distance this date.
[2023-05-08] MEDS: MONTELUKAST SODIUM 10 MG TABLET PO (20:53)
[2023-05-09] MEDS: METHYLPREDNISOLONE SOD SUCC PF 125 MG/2 ML VIAL IVP ×2 (01:28→08:10)
[2023-05-09 04:23] VITALS: PULSE 122; RESP 22; O2SAT 94
[2023-05-09] MEDS: LEVALBUTEROL HCL 0.63 MG/3 ML VIAL.NEB IH ×2 (04:23→10:55)
[2023-05-09] MEDS: IPRATROPIUM BROMIDE 0.5 MG/2.5 ML VIAL.NEB IH ×2 (04:23→10:56)
[2023-05-09] MEDS: SODIUM CHLORIDE 0.9% INHALATION 3 ML NEB 6 ML IH (04:23)
[2023-05-09] MEDS: PIPERACILLIN SODIUM/TAZOBACTAM 3.375 GM in 0.9 % SODIUM CHLORIDE 50 ML IV (04:29)
[2023-05-09] MEDS: NYSTATIN 500,000 UNIT/5 ML ORAL.SUSP 500000 UNIT PO ×2 (05:10→12:08)
[2023-05-09 05:12] VITALS: BP 129/70; PULSE 108; RESP 20; TEMP 36.6; O2SAT 98
[2023-05-09 05:41] LABS: Basophils Percent Auto 0.1 % (0.2-2.0); Hematocrit 41.2 % (36.0-48.0); Hemoglobin 12.9 g/dL (12.0-16.0); Immature Granulocytes Abs Auto 0.06 10^3/uL (0.00-0.03); Immature Granulocytes Pct Auto 0.5 % (0.0-0.5); Lymphocytes Absolute Auto 0.4 10^3/uL (1.2-3.8); Lymphocytes Percent Auto 3.7 % (20.5-60.0); Mean Corpuscular HGB Conc 31.3 g/dL (29.9-35.2); Mean Corpuscular Volume 89.6 fL (81.0-99.0); Mean Platelet Volume 9.4 fL (9.5-13.5); Monocytes Absolute Auto 0.3 10^3/uL (0.3-0.8); Monocytes Percent Auto 2.5 % (1.7-12.0); Neutrophils Absolute Auto 10.7 10^3/uL (1.4-6.5); Neutrophils Percent Auto 93.2 % (43.0-75.0); Platelet Count 284 10^3/uL (150-450); Red Cell Distribution Width 12.8 % (11.0-15.0); White Blood Count 11.4 10^3/uL (4.0-11.0)
[2023-05-09 06:06] LABS: Alanine Aminotransferase 25 U/L (14-59); Albumin Globulin Ratio 0.6; Albumin Level 2.9 g/dL (3.4-5.0); Alkaline Phosphatase 86 U/L (46-116); Anion Gap 2.7; Aspartate Amino Transferase 21 U/L (15-37); BUN Creatinine Ratio 26.1; Bilirubin Total 0.2 mg/dL (0.2-1.0); Carbon Dioxide 40.8 mmol/L (21.0-32.0); Chloride 102 mmol/L (98-107); Estimated GFR (African America >60 (>=60); Estimated GFR (Non-African Ame >60 (>=60); Globulin 4.6 g/dL; Glucose 143 mg/dL (74-106); Potassium 3.5 mmol/L (3.5-5.1); Sodium 142 mmol/L (136-145); Total Protein 7.5 g/dL (6.4-8.2)
--- NOTE | 2023-05-09 07:45 | P.DS_ITS ---
DS: Providers Provider Date of admission: 05/07/23 08:28 Primary care physician: Kaiden Bass MD Consults: 05/07/23 08:32 Physical Therapy Eval and Treat Routine Reason for consultation: Eval and Treat Has provider been notified: No DS: Diagnosis Discharge Diagnosis (1) Acute exacerbation of chronic obstructive pulmonary disease (COPD): (2) Tachycardia: (3) Failure of outpatient treatment: (4) Asthma exacerbation in COPD: (5) Tachypnea: Plan Sinus tachycardia, respiratory distress, leukocytosis with left shift, acute hypoxia secondary to acute exacerbation of COPD with CO2 retention history -with failed outpatient treatment with doxycycline and cefdinir DS: Summary Hospital Course Hospital Course: Patient was treated as an outpatient for acute exacerbation of her COPD with steroids, initially cefdinir, then a trial of doxycycline, over the last 5 days those all failed. She was admitted for IV therapy. Given the Zosyn and Levaquin. Patient slowly improved. Sputum production is much less than admission. Checking on sputum culture later today. Will discharge patient home after morning antibiotics. See me in the office in 2 to 3 days. Medications see list. Time Spent with Patient Time attestation: Total time spent providing and/or coordinating discharge services: Exam Constitutional Vital Signs, click to edit/add: Last Vital Signs Temp 97.9 F 05/09/23 05:12 Pulse 108 H 05/09/23 05:12 Resp 20 05/09/23 05:12 BP 129/70 05/09/23 05:12 Pulse Ox 98 05/09/23 05:12 O2 Del Method Nasal Cannula 05/09/23 05:12 O2 Flow Rate 2 05/09/23 05:12 Documenting provider has reviewed patient's vital signs: yes Common normals: apparent distress (Mild to moderate respiratory distress with some conversational dyspnea) Chest Common normals: inspection of chest normal Respiratory Common normals: no retractions; abnormal respiratory effort Auscultation: rhonchi, wheezes and diminished lung sounds (Somewhat better air exchange) Cardio Common normals: regular rhythm; irregular rate Rate: tachycardic GI Common normals: Normal to inspection, nondistended, normoactive bowel sounds present Neuro Common normals: oriented x3, CN's II-XII intact bilaterally and moves all extremities DS: Data Data Completed and Pending Labs on day of discharge: Labs from last 24 hours 05/09/23 05:15 WBC 11.4 H RBC 4.60 Hgb 12.9 Hct 41.2 MCV 89.6 MCH 28.0 MCHC 31.3 RDW 12.8 Plt Count 284 MPV 9.4 L Neut % (Auto) 93.2 H Lymph % (Auto) 3.7 L Toombs % (Auto) 2.5 Eos % (Auto) 0.0 L Baso % (Auto) 0.1 L Neut # (Auto) 10.7 H Lymph # (Auto) 0.4 L Toombs # (Auto) 0.3 Eos # (Auto) 0.0 Baso # (Auto) 0.0 Abs Immat Gran (auto) 0.06 H Imm/Tot Granulo (auto) 0.5 Sodium 142 Potassium 3.5 Chloride 102 Carbon Dioxide 40.8 H Anion Gap 2.7 BUN 12.0 Creatinine 0.46 L Est GFR ( Amer) >60 Est GFR (Non-Af Amer) >60 BUN/Creatinine Ratio 26.1 Glucose 143 H Calcium 10.0 Total Bilirubin 0.2 AST 21 ALT 25 Alkaline Phosphatase 86 Total Protein 7.5 Albumin 2.9 L Globulin 4.6 Albumin/Globulin Ratio 0.6 Discharge Plan Discharge Disposition: Home, Self-Care Discharge Medications: New prednisone 10 mg tablet 50 mg PO DAILY Qty: 47 0RF Rx Instructions: 5/day for 3 days. 4/day for 3 days, 3/day for 3 days, 2/day for 3 days, 1/day for 3 days, 1/2 /day for 4 days levofloxacin 750 mg tablet 750 mg PO DAILY 14 Days Qty: 14 0RF ferrous sulfate 325 mg (65 mg iron) tablet 325 mg PO BID Qty: 60 11RF Continued budesonide 0.5 mg/2 mL suspension for nebulization 0.5 mg inhalation Q12H ipratropium-albuterol 0.5 mg-3 mg(2.5 mg base)/3 mL solution for nebulization 3 ml INHALATION Q6H PRN (Reason: shortness of breath) montelukast 10 mg tablet 10 mg PO .hs Stiolto Respimat 2.5-2.5 mcg/actuation mist 2 puff INHALATION Q24H theophylline 400 mg tablet extended release 24 hr 400 mg PO DAILY albuterol sulfate [ProAir HFA] 90 mcg/actuation HFA aerosol inhaler 2 inh inhalation QID PRN (Reason: SOB) sodium chloride [NebuSal] 3 % solution for nebulization 4 ml inhalation Q8H PRN (Reason: SOB) fluticasone propionate 50 mcg/actuation Crump,Suspension 2 spray intranasal QD PRN (Reason: allergy symptoms) Forms: Portal Instructions
[2023-05-09] MEDS: POTASSIUM CHLORIDE 10 MEQ ER TABLET 20 MEQ PO (08:22)
[2023-05-09] MEDS: THEOPHYLLINE 300 MG TAB.ER.12H PO (08:22)
[2023-05-09] MEDS: PROSTAT 15 GM PROTEIN/100 CAL 30 ML LIQUID PACKET PO (08:22)
[2023-05-09] MEDS: ENSURE HP 237 ML LIQUID PO (08:22)
[2023-05-09] MEDS: LEVOFLOXACIN IN DEXTROSE 5 % 750 MG/150 ML IV.SOLN 100 MG IV (08:29)
[2023-05-09 10:55] VITALS: RESP 18
--- NOTE | 2023-05-11 15:20 | CM.DCFOLLOWU ---
Person spoke with: Omaira How are you feeling? A little better, still having labored breathing How is your pain? No pain Did you understand your discharge instructions? Yes Do you have any questions about your discharge instructions? No Were you given any prescriptions at discharge? Yes Were you able to get your prescriptions filled? Yes Do you understand how to take your medications as ordered? Yes Do you have any questions about your follow up appointment and do you plan to keep your follow up appointment? I will call this week to schedule Is there anything else that you would like to discuss? No Questions/Comments/Concerns/Other:
== END 2023-05-09 12:24 | disposition home or self-care (01) | DRG 140 ==
LOC: ER 07:43 → MS 07:50
PROVIDERS: Admitting Provider Family Medicine; Emergency Provider Emergency Medicine; PCP Family Medicine; Visit Provider Family Medicine
DX: J44.1 Chronic obstructive pulmonary disease with (acute) exacerbation (principal); R00.0 Tachycardia, unspecified; R06.82 Tachypnea, not elsewhere classified; R09.02 Hypoxemia; Z99.81 Dependence on supplemental oxygen; Z87.891 Personal history of nicotine dependence; Z79.899 Other long term (current) drug therapy; Z88.1 Allergy status to other antibiotic agents
CPT/HCPCS: 0202U; 36415; 36600; 71045; 80048; 80053; 80198; 82805; 83605; 83735; 83880; 84484; 85025; 87040; 87070; 87205; 93005; 94640; 94667; 94668; 94761; 96365; 96366; 96367; 96368; 96375; 96376; 97110; 97161; 97530; 99285; J2543; J2930

== ENCOUNTER 2023-06-06 14:28 | Emergency (ER) | payer OTHER, SELFPAY ==
[2023-06-06] VITALS (20 sets, daily range): BP systolic 103–123; BP diastolic 60–84; PULSE 119–144; RESP 16–28; TEMP 36.8; O2SAT 95–100; BMI 15.8
--- OUTSIDE RECORDS SUMMARY | 2023-06-06 14:45 | XMS_ITS | CCD ---
Author Name Unknown Address [address] [facility] [address] [place] [address] Organization [facility] Care Team Providers Care Remote Broadcast Technician Name Role Phone Adithya Bass Unavailable Unavailable JAYE HOUGH Unavailable Unavailable ADITHYA BASS Unavailable Unavailable DUGLAS FERNANDEZ Unavailable Unavailable Adithya Bass MD Primary Care Provider [phone] Adithya Bass MD Primary Care Provider [phone] Adithya Bass MD Primary Care Provider [phone] VITOR FARIAS Attending Unavailable ADITHYA BASS Primary Care Unavailable Jose Conde Unavailable DR JOSE CONDE Admitting Unavailable ELTON, DR GARCIA Attending Unavailable BLANK, DR GARCIA Consulting Unavailable HOY ., DR [...] WILD Consulting Unavailable EAMON ANDREWS Consulting Unavailable JESSEY ., DR HAJI Admitting Unavailable HOY ., DR HAJI Attending Unavailable HOY ., DR HAJI Consulting Unavailable HOY ., DR HAJI Primary Care Unavailable ORANGE, DR JULES Naranjo Consulting Unavailable HOY ., DR HAJI Admitting Unavailable HOY ., DR HAJI Attending Unavailable HOY ., DR HAJI Consulting Unavailable HOY ., DR HAJI Primary Care Unavailable HOY ., DR HAJI Admitting Unavailable HOY ., DR HAJI Attending Unavailable HOY ., DR HAJI Consulting Unavailable HOY ., DR HAJI Primary Care Unavailable BLANK, DR GARCIA Admitting Unavailable BLANK, DR GARCIA Attending Unavailable BLANK, DR GARCIA Consulting Unavailable CHANTLAE ., DR HAJI Primary Care Unavailable Adithya Bass MD Primary Care Provider [phone] ANA DRIVER Attending Unavailable LINDY, ABDI Attending Unavailable ADITHYA BASS Primary Care Unavailable LINDY, BADI Attending Unavailable LINDY, ABDI Referring Unavailable ADITHYA BASS M Primary Care Unavailable LINDY, ABDI Attending Unavailable LINDY, ABDI Referring Unavailable ADITHYA BASS Primary Care Unavailable Ally Warner Admitting Unavailable Adithya Bass Primary Care Unavailable Cassandra Andersen Attending Unavailable Allergies Allergy Classification Reported Allergen(s) Allergy Type Date of Onset Reaction(s) Facility (20 sources) levoFLOXacin; Translations: [LEVOFLOXACIN] Drug Allergy 03-02-2018 Unknown [facility] Repository (2 sources) levoFLOXacin Drug Allergy [facility] Repository Medications Current Medications Medication Drug Class(es) Dates Sig (Normalized) Sig (Original) albuterol 0.833 mg/ml / ipratropium bromide 0.167 mg/ml inhalation solution (5 sources) Anticholinergic, beta2-Adrenergic Agonist Start: 05-13-2023 take 1 mL by inhalation every six hours Ipratropium-Albut krystina Active 3 ML INHALATION Q6H May 13, 2023 12:00am Ipratropium-Albu terol 0.5-2.5 (3) MG/3ML DIRECTED Inhalation Active budesonide 0.25 mg/ml inhalation suspension (20 sources) Corticosteroid Start: 05-13-2023 take 0.5 mg by inhalation every twelve hours Budesonide Active 0.5 MG INHALATION Q12H May 13, 2023 12:00am Start: 04-27-2019 take 1 dose by inhal ation twice daily budesonide (PULMICORT) 1 mg/2 mL nebulizer solution INHALE 1 VIAL VIA NEBULIZER TWICE A DAY 0 04/27/2019 Active take 1 mL by inhalat ion twice daily Pulmicort 0.5 MG/2ML 1 mL Inhalation Twice a day Active Comment on above: INHALE 1 VIAL VIA NE BULIZER TWICE A DAY 12 hr guaiFENesin 600 mg extended release oral tablet (1 source) Start: 05-17-19 take 1 tablet by mouth twice daily, then take 1 tablet by mouth every twelve hours Guaifenesin (Mucinex) 600 mg Tablet Extended Release 12hr Active 600 MG PO Twice daily May 17, 2023 12:00am levoFLOXacin 500 mg oral tablet (3 sources) Quinolone Antimicrobial Start: 05-17-19 take 500 mg by mouth once daily Levofloxacin Active 500 MG PO Daily 5 5 May 17, 2023 12:00am Start: 05-13-2023 End: 05-17-2023 take 750 mg by mouth every twenty-four hours Levofloxacin Discontinued 750 MG PO Q24H May 13, 2023 12:00am May 17, 2023 8:52am montelukast 10 mg oral tablet (20 sources) Leukotriene Receptor Antagonist Start: 10-28-2018 take 10 mg by mouth at bedtime Montelukast Active 10 MG PO Bedtime May 13, 2023 12:00am Comment on above: Take 10 mg by mouth daily at bedtime. nystatin 016453 unt/ml oral suspension (4 sources) Polyene Antifungal Start: 05-17-2023 take 374291 [IU] by mouth three times daily Nystatin Active 463249 UNIT PO Three times daily May 17, 2023 8:48am Nystatin 019205 units/mL 1 mL to each cheek Four times a day Active Tiotropium-Olodaterol (20 sources) Anticholinergic, beta2-Adrenergic Agonist Start: 05-13-2023 Tiotropium-Olodaterol (Stiolto Respimat) 2.5-2.5 mcg/actuation mist Active 2 PUFF INHALATION Daily May 13, 2023 12:00am Start: 11-01-2018 STIOLTO RESPIM AT 2.5-2.5 mcg/actuation mist TAKE 2 PUFFS BY MOUTH EVERY DAY 12 11/01/2018 Active Stiolto Respimat 2.5-2.5 MCG/ACT 2 puffs Inhalation Once a day Active Comment on above: TAKE 2 PUFFS BY MOUT H EVERY DAY oxygen as ordered (3 sources) oxygen as ordere d qhs Active predniSONE 10 mg oral tablet (6 sources) Start: 05-17-2023 take 1 tablet by mouth three times daily, then take 1 tablet by mouth twice daily, then take 1 tablet by mouth once daily Prednisone Active 10 MG PO As Directed May 17, 2023 8:52am Take 1 tablet 3 times a day for 5 days then 1 tablet twice a day for 5 days then 1 tablet daily Start: 05-13-2023 End: 05-17-2023 take 40 mg by mouth once daily Prednisone Discontinued 40 MG PO Daily May 13, 2023 12:00am May 17, 2023 8:52am prednisone 10 mg as directed Orally as directed Active sodium chloride 9 mg/ml inhalation solution (3 sources) Sodium Chloride 0.9 % as directed Inhalation Three times a day Active theophylline 400 mg extended release oral tablet (20 sources) Methylxanthine Start: 05-13-2023 take 300 mg by mouth every twenty-four hours Theophylline Active 300 MG PO Q24H May 13, 2023 12:00am Start: 02-02-2018 take 1 capsule by [facility] once daily, then take 1 capsule by mouth every twenty-four hours Theophylline SR (MI-24) 400 mg 24 hr capsule Take 400 mg by mouth once daily. 12 02/02/2018 Active Start: 02-02-2018 take 1 capsule by [facility] once daily MI-24 200 mg 24 hr capsule Take 200 mg by mouth once daily. 12 02/02/2018 Active Comment on above: Take 200 mg by mouth once daily. Take 400 mg by mouth once daily. Completed/Discontinued Medications Medication Drug Class(es) Dates Sig (Normalized) Sig (Original) albuterol 5 mg/ml inhalation solution (19 sources) beta2-Adrenergic Agonist albuterol (PROVENTIL ) 2.5 mg/0.5 mL nebulizar solution PEDIATRIC ASTHMA Inhale 2.5-5 mg as instructed as directed. 0 Active take 2 puff(s) by in halation every four hours as needed Ventolin HFA 108 (90 Base) MCG/ACT 2 puffs as needed Inhalation every 4 hrs Active Comment on above: Inhale 2.5-5 mg as i nstructed as directed. Budesonide / formoterol (1 source) Corticosteroid, beta2-Adrenergic Agonist End: 07-02-19 take 2 puff(s) by inhalation twice daily budesonide-formotero l (SYMBICORT) 160-4.5 mcg/actuation inhaler Inhale 2 Puffs as instructed twice daily. 0 07/01/2021 Discontinued (Discontinued by another Health Care Provider) Comment on above: Inhale 2 Puffs as in structed twice daily. cetirizine hydrochloride 10 mg oral capsule (19 sources) Histamine-1 Receptor Antagonist Cetirizine 10 mg cap Take by mouth. 0 Active take [facility] tablet [facility]-four hours Cetirizine HCl 10 MG 1 tablet Orally Onc e a day Active Comment on above: Take by mouth. docusate sodium 50 mg / sennosides, prison 8.6 mg oral tablet (16 sources) Start: 05-25-2018 take 2 tablets by mouth every twelve hours as needed senna-docusate (SENOKOT-S) 8.6-50 mg per tablet Take 2 tablets by mouth twice daily as needed. 100 tablet 1 05/25/2018 Active Comment on above: Take 2 tablets by mo [facility] twice daily as needed. ipratropium/albuter ol sulfate (DUONEB INHALATION) (16 sources) ipratropium/albu terol sulfate (DUONEB INHALATION) Inhale [...] in the CT contrast administration guidelines link. Problems Active Problems Problem Classification Problem Date [...] of bronchus and lung] Onset: 09-09-2022 Episodic Cardiac dysrhythmias (4 sources) Tachycardia; Translations: [Tachycardia, unspecified] 05-13-2023 Episodic Chronic obstructive pulmonary disease and bronchiectasis [...] aspergillosis; Translations: [Aspergillosis, unspecified] Onset: 09-09-2022 Episodic Neoplasms of unspecified nature or uncertain behavior (3 sources) Neoplasm of lung ; Translations: [Neoplasm of unspecified behavior of respiratory system] Episodic Nutritional deficiencies (7 sources) Cachexia; Translations: [Cachexia] Onset: 05-14-2023 05-14-2023 Episodic Other aftercare (1 source) 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) use of systemic steroids; Translations: [INTERMEDIATE USE OF SYSTEMIC STEROIDS] Onset: 09-09-2022 Episodic Other aftercare (1 source) 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) use of inhaled steroids; Translations: [INTERMEDIATE USE OF INHALED STEROIDS] Onset: 09-09-2022 Episodic Other aftercare (1 source) Other intermediate (current) drug therapy; Translations: [OTH TOOTH CUTTER CONTACT WHEEL CURRENT DRUG THERAPY] Onset: 09-09-2022 Episodic Other lower respiratory disease (1 source) Solitary pulmonary nodule; Translations: [Solitary pulmonary nodule] Onset: 03-02-2018 Episodic Other lower respiratory disease (2 sources) Lung mass; Translations: [Other nonspecific abnormal finding of lung field] Episodic Other lower respiratory disease (1 source) Other nonspecific abnormal finding of lung field; Translations: [Lung mass] Onset: 01-16-2023 Episodic Other lower respiratory disease (1 source) Nodule of lung; Translations: [Solitary pulmonary nodule] Episodic Other lower respiratory disease (1 source) Personal history of pneumonia (recurrent); Translations: [PERSONAL HX OF PNEUMONIA RECURRENT] Onset: 09-09-2022 Episodic Other lower respiratory disease (2 sources) Dyspnea on exertion; Translations: [Shortness of breath] 05-13-2023 Episodic Other lower respiratory disease (2 sources) Shortness of breath; Translations: [Shortness of breath] 05-14-2023 Episodic Other upper respiratory disease (1 source) Bronchiolar disease; Translations: [Other diseases of bronchus, not elsewhere classified] Episodic Pneumonia (except that caused by tuberculosis or sexually transmitted disease) (5 sources) Pneumonia; Translations: [Pneumonia, unspecified organism] Onset: 05-14-2023 05-13-2023 Episodic Respiratory failure; insufficiency; arrest (adult) (20 sources) Chronic respiratory failure with hypoxia; Translations: [Chronic hypoxemic respiratory failure] Onset: 03-02-2018 03-02-2018 Chronic Respiratory failure; insufficiency; arrest (adult) (4 sources) Acute respiratory failure with hypoxia; Translations: [Acute respiratory failure] Onset: 09-09-2022 05-14-2023 Episodic Screening and history of mental health [...] Classification Problem Date Documented Da te Episodic/Chronic Nonspecific chest pain (1 source) Chest pain, unspecified; Translations: [Chest pain, unspecified] Onset: 03-24-2017 Episodic Other lower respiratory disease (16 sources) Solitary nodule of lung; Translations: [Solitary pulmonary nodule] Onset: 03-02-2018 03-02-2018 Episodic Other screening for suspected conditions (not mental disorders or infectious disease) (9 sources) Gross pathology - abnormality; Translations: [Abnormal histological findings in specimens from other organs, systems and tissues] Onset: 05-23-2022 Episodic Other upper respiratory disease (1 source) Nasal congestion; Translations: [NASAL CONGESTION] Onset: 04-11-2022 Episodic Unclassified (1 source) CONTACT W/AND (SUSP) EXPOS COVID-19; Translations: [CONTACT W/AND (SUSP) EXPOS COVID-19] Onset: 04-08-2022 Results Test Name Value Interpretation Reference Range Facility [facility] 05-20-2023 [facility] Telephone (RADTSA) CINTHIA STANLEY ([id number]) 1960 F Date Time Provider Department 05/20/23 ABDI IQBAL During your visit today, we recorded the following information about you: Silvia Lomax, LUCIE 05/20/2023 9:55 AM Signed Pt called in and was admitted to [facility] last week. They did CT Chest. She has been waiting on insurance approval for a chest CT and will not need one now. She would like follow up arranged. Reports printed from [facility] and images requested. PSS- please call pt and arrange follow up with Dr Iqbal for next week. Thank you LUCIE Mchugh Tiffany 05/20/2023 9:59 AM Signed Patient is called and scheduled for next week Allergies As of Date: 05/20/2023 Noted Allergy Reaction LEVOQUIN (LEVOFLOXACIN) 03/02/2018 16 - Unknown Comments: Tendonitis but can take avalox Date Reviewed: 11/27/2022 Reviewed by: Silvia Lomax RN - Fully Assessed Reason for Visit: Patient Update [1234] Future Appointment [256] Prescriptions as of 05/20/2023 - budesonide (PULMICORT) 1 mg/2 mL nebulizer [...] 10 mg cap Take by mouth. - Theophylline SR (MI-24) 400 mg 24 hr capsule Take 400 mg by mouth once daily. Problem List As Of Date 05/20/2023 Noted Resolved Lung nodule, solitary [R91.1] 03/02/2018 Centrilobular emphysema (HCC) [J43.2] 03/02/2018 Chronic respiratory failure with hypoxia (HCC) *03/02/2018 Non-small cell cancer of left lung (HCC) [C34.9*04/07/2018 Encounter Status:Closed by SILVIA LOMAX on 05/20/23 Normal [facility] Complete Blood Count Auto Di ffon 05-15-2023 Basophils (Bld) [#/Vol] 0.0 10*3/uL Normal 0.0-0.2 [facility] Comment on above: Result Comment: PERF ORMED BY: [facility] [address] [place] [address] PATHOLOGIST MS SQL SERVER DEVELOPER JASMEET LIN M.D. Performed By: #### C MP, CBC #### [facility] [address] [place] [address] [place] Basophils/100 WBC (Bld) 0.3 % Normal . [facility] Comment on above: Performed By: #### C MP, CBC #### [facility] [address] Eosinophils (Bld) [#/Vol] 0.0 10*3/uL Normal 0.0-0.45 [facility] Comment on above: Performed By: #### C MP, CBC #### [facility] [address] Eosinophils/100 WBC (Bld) 0.0 % Normal . [facility] Comment on above: Performed By: #### C MP, CBC #### [address] Erythrocyte distribution width (RBC) [Ratio] 13.5 % Normal 11.9-15.3 [facility] Comment on above: Performed By: #### C MP, CBC #### [address] Hematocrit (Bld) [Volume fraction] 42.0 % Normal 34.0-46.4 [facility] Comment on above: Performed By: #### C MP, CBC #### [address] Hemoglobin (Bld) [Mass/Vol] 13.9 g/dL Normal 11.8-15.4 [facility] Comment on above: Performed By: #### C MP, CBC #### [address] Lymphocytes (Bld) [#/Vol] 0.6 10*3/uL Low 1.00-4.8 [facility] Comment on above: Performed By: #### C MP, CBC #### [address] Lymphocytes/100 WBC (Bld) 8.4 % Normal . [facility] Comment on above: Performed By: #### C MP, CBC #### [address] MCH (RBC) [Entitic mass] 28.0 pg Normal 24.7-34.3 [facility] Comment on above: Performed By: #### C MP, CBC #### [address] MCV (RBC) [Entitic vol] 84.8 fL Normal 80-100 [facility] Comment on above: Performed By: #### C MP, CBC #### [address] Mean Corpuscular HGB Conc 33.0 g/dL Normal 32.0-35.0 [facility] Comment on above: Performed By: #### C MP, CBC #### [address] Monocytes (Bld) [#/Vol] 0.4 10*3/uL Normal 0.0-0.8 [facility] Comment on above: Performed By: #### C MP, CBC #### [address] Monocytes/100 WBC (Bld) 4.9 % Normal . [facility] Comment on above: Performed By: #### C MP, CBC #### [address] Neutrophils (Bld) [#/Vol] 6.6 10*3/uL Normal 1.8-7.7 [facility] Comment on above: Performed By: #### C MP, CBC #### [address] Neutrophils/100 WBC (Bld) 86.4 % Normal . [facility] Comment on above: Performed By: #### C MP, CBC #### [address] NRBC% 0.0 /100{WBC} Normal 0-0.5 [facility] Comment on above: Performed By: #### C MP, CBC #### [address] Platelet mean volume (Bld) [Entitic vol] 7.3 fL Normal 6.3-10.7 [facility] Comment on above: Performed By: #### C MP, CBC #### [facility] [address] Platelets (Bld) [#/Vol] 378 10*3/uL Normal 150-450 [facility] Comment on above: Performed By: #### C MP, CBC #### [facility] [address] RBC (Bld) [#/Vol] 4.95 10*6/uL Normal 3.60-5.00 [facility] Comment on above: Performed By: #### C MP, CBC #### [facility] [address] WBC (Bld) [#/Vol] 7.6 10*3/uL Normal 3.8-11.6 [facility] Comment on above: Performed By: #### C MP, CBC #### [address] Comprehensive Metabolic Pane [place] 05-15-2023 Albumin [Mass/Vol] 4.0 g/dL Normal 3.5-5.7 [facility] Comment on above: Performed By: #### C MP, CBC ####[address] Albumin/Globulin [Mass ratio] 1.3 {ratio} Normal [facility] Comment on above: Performed By: #### C MP, CBC ####[address] ALP [Catalytic activity/Vol] 68 U/L Normal 34-104 [facility] Comment on above: Performed By: #### C MP, CBC ####[address] ALT [Catalytic activity/Vol] 13 U/L Normal 7-52 [facility] Comment on above: Performed By: #### C MP, CBC ####[address] Anion gap [Moles/Vol] 6.9 mmol/L Normal 6.0-15.0 [facility] Comment on above: Performed By: #### C MP, CBC ####[address] [address] [facility] AST [Catalytic activity/Vol] 16 U/L Normal 13-39 [facility] Comment on above: Performed By: #### C MP, CBC ####[place] [id number] [facility] Bilirubin [Mass/Vol] 0.4 mg/dL Normal 0.3-1.0 [facility] Comment on above: Performed By: #### C MP, CBC ####[place] [address] [place] [id number] [facility] Calcium [Mass/Vol] 9.7 mg/dL Normal 8.6-10.3 [facility] Comment on above: Performed By: #### C MP, CBC ####[place] [id number] [facility] Chloride [Moles/Vol] 90 mmol/L Low 98-107 [facility] Comment on above: Performed By: #### C MP, CBC ####[place] [id number] [facility] CO2 [Moles/Vol] 44.4 mmol/L High 21.0-31.0 [facility] Comment on above: Performed By: #### C MP, CBC ####[address] [address] [facility] Creatinine [Mass/Vol] 0.48 mg/dL Low 0.60-1.20 [facility] Comment on above: Performed By: #### C MP, CBC ####[place] [id number] [place] Creatinine Clr Calc Pharmacy 76.17 Normal [facility] Comment on above: Result Comment: PERF ORMED BY: [facility] [address] [place] [id number] PATHOLOGIST MS SQL SERVER DEVELOPER JASMEET LIN M.D. Performed By: #### C MP, CBC ####[facility] [place] [address] [place] GFR/1.73 sq M.predicted MDRD (S/P/Bld) [Vol rate/Area] mL/min/{1.73_m2} [facility] Comment on above: Performed By: #### C MP, CBC ####[place] [address] [place] [address] [facility] Globulin (S) [Mass/Vol] 3.1 g/dL [facility] Comment on above: Performed By: #### C MP, CBC ####[place] [address] [place] [address] [facility] Glucose [Mass/Vol] 148 mg/dL High 70-100 [facility] Comment on above: Result Comment: [facility] Glucose Reference Range is dependent on time and content of last meal. Glucose of more than 200 mg/dL in a nonstressed, ambulatory subject supports the diagnosis of Diabetes Mellitus. ADA recommended reference range Performed By: #### C MP, CBC ####[address] [address] [facility] Potassium [Moles/Vol] 4.3 mmol/L Normal 3.5-5.1 [facility] Comment on above: Performed By: #### C MP, CBC ####[address] [address] [facility] Protein [Mass/Vol] 7.1 g/dL Normal 6.4-8.9 [facility] Comment on above: Performed By: #### C MP, CBC ####[address] [address] [facility] Sodium [Moles/Vol] 137 mmol/L Normal 136-145 [facility] Comment on above: Performed By: #### C MP, CBC ####[address] [address] [facility] Urea nitrogen [Mass/Vol] 13 mg/dL Normal 7-25 [facility] Comment on above: Performed By: #### C MP, CBC ####[address] [place] [address] [facility] [address] angio chest PE protocolon 05-14-2023 CT angio chest PE protocol [facility] Main [place] [address] [place] [id number] Scan Report Signed Patient: Cinthia Stanley MR#: [id number] : 1960 Acct:[id number] Age/Sex: 62 / F ADM Date: 05/14/23 Loc: Room: [address] [place] [address] Type: ADM IN Attending Dr: Cassandra Andersen MD Copies to: MD Cassandra Wiseman MD Ordering Provider: Stacia Garcia MD Date of Service: 05/13/23 CT/CT angio chest PE protocol: sob, tachy, hx cancer, on nc CTA Chest with PE protocol TECHNIQUE: Axial imaging with 2-D and 3-D reconstruction. 90cc of Isovue-[address] exam was performed using one or more the following dose reduction techniques: Automated exposure control, adjustment of the MA and/or Kv according to patient size, or use of the iterative reconstruction technique. History: Shortness of breath for one week. History of lung cancer. COMPARISON: 05/06/22 Respiratory motion. THYROID: Unremarkable TRACHEA AND BRONCHI: Patent ESOPHAGUS: Unremarkable. HEART: Within normal limits PERICARDIAL EFFUSION: None CORONARY ARTERY CALCIFICATION: None MEDIASTINUM: No adenopathy. No pneumoperitoneum. No mediastinal hematoma. PULMONARY FREDDY: No hilar mass or adenopathy is seen. THORACIC AORTA Unremarkable PULMONARY EMBOLUS: None LUNG NODULE None LUNGS: Emphysema. Hyperinflation. RIGHT middle lobe atelectasis. Chronic LEFT upper lobe scarring extending into the suprahilar region. Airspace consolidation medial portion of the RIGHT lower lobe new from prior examination. Subtle groundglass opacities of both lower lobes. PLEURAL EFFUSION: None PNEUMOTHORAX: No pneumothorax seen. CHEST WALL: No abnormality AXILLA: Unremarkable BONY STRUCTURES Intact UPPER ABDOMEN: Small RIGHT renal cyst. CT/CT angio chest PE protocol IMPRESSION: No acute pulmonary embolus. RIGHT lower lobe pneumonia. Subtle groundglass opacities of both lower lobes which may represent infectious or inflammatory process. COPD. Impression dictated by: Wong Byrd M.D.05/14/2023 8:07 AM Dictation Location: RADIO-PC-01 Transcribed By: PWS 05/14/23806 Dictated By: Wong Byrd DO 05/14/23801 Signed By: 05/14/23806 Normal [facility] B-Type Natriuretic Peptideon 05-13-2023 Natriuretic peptide B (Bld) [Mass/Vol] 25.0 pg/mL Normal 5-100 [facility] Comment on above: Result Comment: PERF ORMED BY: [facility] [address] [place] [address] PATHOLOGIST MS SQL SERVER DEVELOPER JASMEET LIN M.D. Performed By: #### B SLATE CUTTER OPERATOR #### [facility] [address] COVID-19 / Flu A/B / RSV PCR on 05-13-2023 SARS-CoV-2 (COVID-19) RNA KRUNAL+probe Ql (Unsp spec) COVID-19 Cepheid Result Negative for SARS-CoV-2 RNA by RT-PCR Flu A Cepheid Result Negative for Flu A RNA by RT-PCR Flu B Cepheid Result Negative for Flu B RNA by RT-PCR RSV Cepheid Result Negative for RSV RNA by RT-PCR COVID19 Blank Space Reference: Negative COVID19 Blank Space Cepheid Disclaimer The Cepheid Xpert Xpress CoV-2/Flu/RSV Plus has Cepheid Disclaimer not been FDA cleared or approved; this test has Cepheid Disclaimer been authorized by FDA under an EUA for use by Cepheid Disclaimer authorized laboratories; this test has been Cepheid Disclaimer authorized only for the simultaneous qualitative Cepheid Disclaimer detection and differentiation of nucleic acids from Cepheid Disclaimer SARS-CoV-2, influenza A, influenza B, and Cepheid Disclaimer respiratory syncytial virus (RSV), and not for any Cepheid Disclaimer other viruses or pathogens; and this test is only Cepheid Disclaimer authorized for the duration of the declaration that Cepheid Disclaimer circumstances exist justifying the authorization of Cepheid Disclaimer emergency use of in vitro diagnostic tests for Cepheid Disclaimer detection and/or diagnosis of COVID-19 under Cepheid Disclaimer Section 564(b)(1) of the Act, 21 U.S.C. 360bbb- Cepheid Disclaimer 3(b)(1), unless the authorization is terminated or Cepheid Disclaimer revoked sooner. PERFORMED BY: [address] [place] [address] PATHOLOGIST MS SQL SERVER DEVELOPER JASMEET LIN M.D. Normal [facility] Comment on above: Performed By: #### C OVID19 FLU RSV, CEPHEID NEG ####[place] [id number] [facility] Cepheid COVID PCR Negativeon 05-13-2023 SARS-CoV-2 (COVID-19) RNA KRUNAL+probe Ql (Unsp spec) Negative Normal Negative [facility] Comment on above: Result Comment: This is a duplicate Cepheid Xpert Xpress CoV-2/Flu/RSV Plus RNA by RT-PCR result to be used for statistical tracking purpose only. PERFORMED BY: [address] [place] [address] PATHOLOGIST [employer] SQL SERVER DEVELOPER JASMEET LIN M.D. Performed By: #### C OVID19 FLU RSV, CEPHEID NEG ####[place] [id number] [facility] Complete Blood Count Auto Di ffon 05-13-2023 Basophils (Bld) [#/Vol] 0.0 10*3/uL Normal 0.0-0.2 [facility] Comment on above: Result Comment: PERF ORMED BY: [place] [address] PATHOLOGIST [employer] SQL SERVER DEVELOPER JASMEET LIN M.D. Performed By: #### H S TROP, TSH3 wRFLX, CMP, CBC #### [address] Basophils/100 WBC (Bld) 0.4 % Normal . [facility] Comment on above: Performed By: #### H S TROP, TSH3 wRFLX, CMP, CBC #### [address] Eosinophils (Bld) [#/Vol] 0.0 10*3/uL Normal 0.0-0.45 [facility] Comment on above: Performed By: #### H S TROP, TSH3 wRFLX, CMP, CBC #### [address] Eosinophils/100 WBC (Bld) 0.1 % Normal . [facility] Comment on above: Performed By: #### H S TROP, TSH3 wRFLX, CMP, CBC #### [address] Erythrocyte distribution width (RBC) [Ratio] 13.5 % Normal 11.9-15.3 [facility] Comment on above: Performed By: #### H S TROP, TSH3 wRFLX, CMP, CBC #### [address] Hematocrit (Bld) [Volume fraction] 44.7 % Normal 34.0-46.4 [facility] Comment on above: Performed By: #### H S TROP, TSH3 wRFLX, CMP, CBC #### [address] Hemoglobin (Bld) [Mass/Vol] 14.9 g/dL Normal 11.8-15.4 [facility] Comment on above: Performed By: #### H S TROP, TSH3 wRFLX, CMP, CBC #### [address] Lymphocytes (Bld) [#/Vol] 1.4 10*3/uL Normal 1.00-4.8 [facility] Comment on above: Performed By: #### H S TROP, TSH3 wRFLX, CMP, CBC #### [address] Lymphocytes/100 WBC (Bld) 14.2 % Normal . [facility] Comment on above: Performed By: #### H S TROP, TSH3 wRFLX, CMP, CBC #### [address] MCH (RBC) [Entitic mass] 28.4 pg Normal 24.7-34.3 [facility] Comment on above: Performed By: #### H S TROP, TSH3 wRFLX, CMP, CBC #### [address] MCV (RBC) [Entitic vol] 85.1 fL Normal 80-100 [facility] Comment on above: Performed By: #### H S TROP, TSH3 wRFLX, CMP, CBC #### [address] Mean Corpuscular HGB Conc 33.4 g/dL Normal 32.0-35.0 [facility] Comment on above: Performed By: #### H S TROP, TSH3 wRFLX, CMP, CBC #### [address] Monocytes (Bld) [#/Vol] 0.8 10*3/uL Normal 0.0-0.8 [facility] Comment on above: Performed By: #### H S TROP, TSH3 wRFLX, CMP, CBC #### [address] Monocytes/100 WBC (Bld) 17.56 % Normal 0.00-20.00 [facility] Comment on above: Performed By: #### H S TROP, TSH3 wRFLX, CMP, CBC #### [address] Monocytes/100 WBC (Bld) 7.6 % Normal . [facility] Comment on above: Performed By: #### H S TROP, TSH3 wRFLX, CMP, CBC #### [address] [place] [address] [place] Neutrophils (Bld) [#/Vol] 7.9 10*3/uL High 1.8-7.7 [facility] Comment on above: Performed By: #### H S TROP, TSH3 wRFLX, CMP, CBC #### [address] Neutrophils/100 WBC (Bld) 77.7 % Normal . [facility] Comment on above: Performed By: #### H S TROP, TSH3 wRFLX, CMP, CBC #### [address] NRBC% 0.1 /100{WBC} Normal 0-0.5 [facility] Comment on above: Performed By: #### H S TROP, TSH3 wRFLX, CMP, CBC #### [address] Platelet mean volume (Bld) [Entitic vol] 7.4 fL Normal 6.3-10.7 [facility] Comment on above: Performed By: #### H S TROP, TSH3 wRFLX, CMP, CBC #### [address] Platelets (Bld) [#/Vol] 405 10*3/uL Normal 150-450 [facility] Comment on above: Performed By: #### H S TROP, TSH3 wRFLX, CMP, CBC #### [address] RBC (Bld) [#/Vol] 5.25 10*6/uL High 3.60-5.00 [facility] Comment on above: Performed By: #### H S TROP, TSH3 wRFLX, CMP, CBC #### [place] [address] [place] WBC (Bld) [#/Vol] 10.2 10*3/uL Normal 3.8-11.6 [facility] Comment on above: Performed By: #### H S TROP, TSH3 wRFLX, CMP, CBC #### [facility] [address] Comprehensive Metabolic Pane shelby 05-13-2023 Albumin [Mass/Vol] 4.2 g/dL Normal 3.5-5.7 [facility] Comment on above: Performed By: #### H S TROP, TSH3 wRFLX, CMP, CBC #### [facility] [address] [place] [address] Albumin/Globulin [Mass ratio] 1.2 {ratio} Normal [facility] Comment on above: Performed By: #### H S TROP, TSH3 wRFLX, CMP, CBC #### [facility] [address] [place] [address] ALP [Catalytic activity/Vol] 79 U/L Normal 34-104 [facility] Comment on above: Performed By: #### H S TROP, TSH3 wRFLX, CMP, CBC #### [address] ALT [Catalytic activity/Vol] 15 U/L Normal 7-52 [facility] Comment on above: Performed By: #### H S TROP, TSH3 wRFLX, CMP, CBC #### [address] Anion gap [Moles/Vol] 12.3 mmol/L Normal 6.0-15.0 [facility] Comment on above: Performed By: #### H S TROP, TSH3 wRFLX, CMP, CBC #### [facility] [address] [place] [address] AST [Catalytic activity/Vol] 17 U/L Normal 13-39 [facility] Comment on above: Performed By: #### H S TROP, TSH3 wRFLX, CMP, CBC #### [facility] [address] [place] [address] Bilirubin [Mass/Vol] 0.3 mg/dL Normal 0.3-1.0 [facility] Comment on above: Performed By: #### H S TROP, TSH3 wRFLX, CMP, CBC #### [address] Calcium [Mass/Vol] 10.0 mg/dL Normal 8.6-10.3 [facility] Comment on above: Performed By: #### H S TROP, TSH3 wRFLX, CMP, CBC #### [facility] [address] Chloride [Moles/Vol] 89 mmol/L Low 98-107 [facility] Comment on above: Performed By: #### H S TROP, TSH3 wRFLX, CMP, CBC #### [facility] [address] CO2 [Moles/Vol] 41.7 mmol/L High 21.0-31.0 [facility] Comment on above: Performed By: #### H S TROP, TSH3 wRFLX, CMP, CBC #### [address] Creatinine [Mass/Vol] 0.47 mg/dL Low 0.60-1.20 [facility] Comment on above: Performed By: #### H S TROP, TSH3 wRFLX, CMP, CBC #### [facility] [address] [place] [address] [place] Creatinine Clr Calc Pharmacy 80.11 [facility] [place] Comment on above: Result Comment: PERF ORMED BY: [place] [address] PATHOLOGIST [employer] SQL SERVER DEVELOPER JASMEET LIN M.D. Performed By: #### H S TROP, TSH3 wRFLX, CMP, CBC #### [facility] [address] [place] [address] [place] GFR/1.73 sq M.predicted MDRD (S/P/Bld) [Vol rate/Area] mL/min/{1.73_m2} [facility] [place] Comment on above: Performed By: #### H S TROP, TSH3 wRFLX, CMP, CBC #### [facility] [address] [place] [address] [place] Globulin (S) [Mass/Vol] 3.5 g/dL [facility] Comment on above: Performed By: #### H S TROP, TSH3 wRFLX, CMP, CBC #### [facility] [address] [place] [address] [place] Glucose [Mass/Vol] 104 mg/dL High 70-100 [facility] Comment on above: Result Comment: [place] Glucose Reference Range is dependent on time and content of last meal. Glucose of more than 200 mg/dL in a nonstressed, ambulatory subject supports the diagnosis of Diabetes Mellitus. ADA recommended reference range Performed By: #### H S TROP, TSH3 wRFLX, CMP, CBC #### [facility] [address] Potassium [Moles/Vol] 4.0 mmol/L Normal 3.5-5.1 [facility] Comment on above: Performed By: #### H S TROP, TSH3 wRFLX, CMP, CBC #### [address] Protein [Mass/Vol] 7.7 g/dL Normal 6.4-8.9 [facility] Comment on above: Performed By: #### H S TROP, TSH3 wRFLX, CMP, CBC #### [facility] [address] [place] [address] [place] Sodium [Moles/Vol] 139 mmol/L Normal 136-145 [facility] Comment on above: Performed By: #### H S TROP, TSH3 wRFLX, CMP, CBC #### [facility] [address] [place] [address] [place] Urea nitrogen [Mass/Vol] 13 mg/dL Normal 7-25 [facility] Comment on above: Performed By: #### H S TROP, TSH3 wRFLX, CMP, CBC #### [facility] [address] [place] [address] [place] ECG 12 lead ECGon 05-13-2023 ECG 12 lead ECG [facility] [place] [address] [place] [address] Electrocardiograph Report Signed Patient: Cinthia Stanley MR#: [id number] 881 : 1960 Acct:[id number] Age/Sex: 62 / F ADM Date: 05/13/23 Loc: ER Room: Type: PRE ER Attending Dr: Ordering Provider: SULAIMAN COE Date of Service: 05/13/23 ECG/ECG 12 lead ECG: Shortness of Breath/Dyspnea Copies to: Test Reason : Blood Pressure : 134/081 mmHG Vent. Rate : 137 BPM Atrial Rate : 137 BPM P-R Int : 142 ms QRS Dur : 066 ms QT Int : 280 ms P-R-T Axes : 089 089 084 degrees QTc Int : 422 ms Sinus tachycardia with premature atrial complexes Right atrial enlargement Minimal voltage criteria for LVH, may be normal variant artifact Confirmed by Kd Simpson DO ([id number]) on 05/13/2023 7:17:32 PM Referred By: Electronically Signed By:Kd Simpson DO Transcribed By: MUS Signed By Kd Simpson DO 1916 Normal [facility] Thyroid Stim Hormone w/Rflxo n 05-13-2023 Thyroid Stim Hormone w/Rflx 0.89 u[iU]/mL Normal 0.45-5.33 [facility] Comment on above: Result Comment: PERF ORMED BY: [place] [address] PATHOLOGIST MS SQL SERVER DEVELOPER JASMEET LIN M.D. Performed By: #### H S TROP, TSH3 wRFLX, CMP, CBC #### [facility] [address] [place] [address] [place] Troponin I High Sensitivityo n 05-13-2023 Troponin I High Sensitivity 3.4 pg/mL Normal 0.0-15.0 [facility] Comment on above: Result Comment: PERF ORMED BY: [place] [address] PATHOLOGIST MS SQL SERVER DEVELOPER JASMEET LIN M.D. Performed By: #### H S TROP #### [facility] [address] [place] [address] [place] Troponin I High Sensitivity 3.9 pg/mL Normal 0.0-15.0 [facility] Comment on above: Result Comment: PERF ORMED BY: [place] [address] PATHOLOGIST [employer] SQL SERVER DEVELOPER JASMEET LIN M.D. Performed By: #### H S TROP, TSH3 wRFLX, CMP, CBC #### [address] XR chest 2V*on 05-13-2023 XR chest 2V* [facility] [place] [address] [place] [address] XRay Report Signed Patient: Cinthia Stanley MR#: [id number] 881 : 1960 Acct:[id number] Age/Sex: 62 / F ADM Date: 05/13/23 Loc: ER Room: Type: [facility] ER Attending Dr: Copies to: Stacia Garcia MD Ordering Provider: Stacia Garcia MD Date of Service: 05/13/23 XR/XR chest 2V*: Shortness of Breath/Dyspnea Plain film chest 2 view HISTORY: Shortness of breath. COMPARISON: 09/22/2022 FINDINGS: SUPPORT DEVICES: None POSTSURGICAL CHANGES: None HEART: Within normal limits PULMONARY FREDDY: Within normal limits MEDIASTINUM: Unremarkable LUNGS AND PLEURA: No acute lung process, pleural effusion or pneumothorax identified. Marked hyperinflation. Left apical scarring. BONY STRUCTURES: Intact ADDITIONAL FINDINGS None XR/XR chest 2V* IMPRESSION: No acute process. COPD. Impression dictated by: Wong Byrd M.D.05/13/2023 8:53 PM Dictation Location: [place] [address] Transcribed By: MARCELLE 05/13/232052 Dictated By: Wong Byrd DO 05/13/232051 Signed By: 05/13/232052 Normal [facility] CNOVon 11-27-2022 CNOV Office Visit (RADTSA ) CINTHIA STANLEY ([id number]) 1960 F Date Time Provider Department 11/27/22 10:30 AM ABDI IQBAL During your visit today, we recorded the following information about you: Temperature Pulse Respiration Blood pressure 96 degrees 110/minute 20/minute 132/82 Weight 45.2 kg Abdi Iqbal MD 12/09/2022 9:33 PM Signed Radiation Oncology - Follow Up Note PATIENT NAME: CINTHIA Stanley PATIENT DIAGNOSIS/PATIENT IDENTIFICATION: Ms. Stanley is a 62-year-old woman with severe COPD, who is diagnosed with Stage IA3, [id number], non-small cell lung cancer arising from a [...] cGy in 5 fractions). INTERVAL HISTORY/ROS: Ms. 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 Driver and using her nebulizers. She [...] CT Chest (09/24/2022) ASSESSMENT AND PLAN: Ms. Stanley is a 62-year-old woman with severe COPD, who is diagnosed with Stage IA3, [id number], non-small cell lung cancer arising from a [...] 05/14/2018 (5000 cGy in 5 fractions). Ms. Stanley is doing well clinically from a radiation [...] the chest. She will follow with her freight car loader Dr. Driver to optimize her respiratory function and I will plan to see her back in approximately [address] of the chest. The patient is aware to contact the clinic in the interim should any questions or concerns arise. Thank you for allowing us to participate in the care of this patient. Signed by: Abdi Iqbal MD I spent a total o (more content not included)... [facility] (HEMTSA) CINTHIA STANLEY ([id number]) 1960 F Date Time Provider Department 11/18/22 CED VICTORIA During your visit today, we recorded the following information about you: Ced Victoria RN 11/18/2022 1:43 PM Signed Pt called for CT 11/19/22. She reports CT completed 09/24/22 at [facility]. CT chest verified and will send images/report. LORENZO: Would you like to cancel CT? Please advise LUCIE Baer Saju, MD 11/18/2022 2:11 PM Signed Yes, please cancel CT tomorrow. In addition to the images, please request any office notes from Dr. Bass as well as her freight car loader. Thanks! Ced Park RN 11/18/2022 2:50 PM Signed Pt notified, CT canceled. Katerina working on records from Dr Bass and Dr Driver. Images/report being pushed from [facility]. LUCIE Baer Ariana, LPN 11/18/2022 3:33 PM Signed FYI--Dr. Driver's progress note is available in Care Everywhere. Dr. Bass's office note to be faxed over per his office. Anita Pressley LPN Allergies As of Date: 11/18/2022 Noted Allergy Reaction LEVOQUIN (LEVOFLOXACIN) 03/02/2018 16 - Unknown Comments: Tendonitis but can take avalox Date Reviewed: 06/02/2022 Reviewed by: Silvia Lomax RN - Fully Assessed Reason for Visit: [...] Encounter Status:Closed by CED VICTORIA on 11/19/22 [facility] CULTURE BLOODon 09-07-2022 Microscopic examination of blood, [...] F Trimethoprim/Sulfameth oxazole 20 S F Normal [facility] Comment on above: Performed By: #### B [id number] #### [facility] [address] [place] [address] Dr. Geri Pradhan CBC AUTO DIFFon 09-05-2022 BASO # 0.0 103/ul Normal 0.0-0.1 [facility] Comment on above: Performed By: #### C BC #### [facility] [address] [place] [address] Dr. Geri Pradhan Basophils/100 WBC (Bld) 0.2 % Normal 0.2-2.0 [facility] Comment on above: Performed By: #### C BC #### [facility] [address] [place] [address] Dr. Geri Pradhan EO # 0.0 103/ul Normal 0.0-0.7 [facility] Comment on above: Performed By: #### C BC #### [facility] [address] [place] [address] Dr. Geri Pradhan Eosinophils/100 WBC (Bld) 0.0 % Critically low 0.9-7.0 [facility] Comment on above: Performed By: #### C BC #### [facility] [address] [place] [address] Dr. Geri Pradhan Erythrocyte distribution width (RBC) [Ratio] 13.8 % Normal 11.0-15.0 [facility] Comment on above: Performed By: #### C BC #### [facility] [address] [place] [address] Dr. Geri Pradhan Hematocrit (Bld) [Volume fraction] 38.8 % Normal 36.0-48.0 [facility] Comment on above: Performed By: #### C BC #### [facility] [address] [place] [address] Dr. Geri Pradhan Hemoglobin (Bld) [Mass/Vol] 11.7 g/dL Critically low 12.0-16.0 [facility] Comment on above: Performed By: #### C BC #### [facility] [address] [place] [address] Dr. Geir Pradhan IG # 0.27 10e3/ul Critically high 0.00-0.03 [facility] Comment on above: Performed By: #### C BC #### [facility] [address] [place] [address] Dr. Geri Pradhan IG % 2.9 % Critically high 0.0-0.5 [facility] Comment on above: Performed By: #### C BC #### [facility] [address] [place] [address] Dr. Geri Pradhan LYMPH # 0.4 103/ul Critically low 1.2-3.8 [facility] Comment on above: Performed By: #### C BC #### [facility] [address] [place] [address] Dr. Geri Pradhan Lymphocytes/100 WBC (Bld) 4.4 % Critically low 20.5-60.0 [facility] Comment on above: Performed By: #### C BC #### [facility] [address] [place] [address] Dr. Geri Pradhan MANUAL DIFF REQ NO Normal [facility] Comment on above: Performed By: #### C BC #### [facility] [address] [place] [address] Dr. Geri Pradhan MCH (RBC) [Entitic mass] 26.8 pg Normal 26.7-34.0 [facility] Comment on above: Performed By: #### C BC #### [facility] [address] [place] [address] Dr. Geri Pradhan MCHC (RBC) [Mass/Vol] 30.2 g/dL Normal 29.9-35.2 [facility] Comment on above: Performed By: #### C BC #### [facility] [address] [place] [address] Dr. Geri Pradhan MCV (RBC) [Entitic vol] 88.8 fL Normal 81.0-99.0 [facility] Comment on above: Performed By: #### C BC #### [facility] [address] [place] [address] [address] Geri Pradhan MONO # 0.3 103/ul Normal 0.3-0.8 [facility] Comment on above: Performed By: #### C BC #### [facility] [address] [place] [address] [address] Geri Pradhan Monocytes/100 WBC (Bld) 3.6 % Normal 1.7-12.0 [facility] Comment on above: Performed By: #### C BC #### [facility] [address] [place] [address] Dr. Geri Pradhan NEUT # 8.2 103/ul Critically high 1.4-6.5 [facility] Comment on above: Performed By: #### C BC #### [facility] [address] [place] [address] Dr. Geri Pradhan Neutrophils/100 WBC (Bld) 88.9 % Critically high 43.0-75.0 [facility] Comment on above: Performed By: #### C BC #### [facility] [address] [place] [address] Dr. Geri Pradhan Platelet mean volume (Bld) [Entitic vol] 9.1 fL Critically low 9.5-13.5 [facility] Comment on above: Performed By: #### C BC #### [facility] [address] [place] [address] Dr. Geri Pradhan PLT 314 103/ul Normal 150-450 [facility] Comment on above: Performed By: #### C BC #### [facility] [address] [place] [address] Dr. Geri Pradhan RBC 4.37 106/ul Normal 4.20-5.40 [facility] Comment on above: Performed By: #### C BC #### [facility] [address] [place] [address] Dr. Geri Pradhan WBC 9.2 103/ul Normal 4.0-11.0 [facility] Comment on above: Performed By: #### C BC #### [facility] [address] [place] [address] [address] Geri Pradhan PROF 14(COMP METB)on 023 Albumin [Mass/Vol] 2.7 g/dL Critically low 3.4-5.0 Th e [facility] Comment on above: Performed By: #### Gerry INGRAM, CMP #### [facility] [address] [place] [address] [address] Geri Pradhan Albumin/Globulin [Mass ratio] 0.7 {ratio} Normal [facility] Comment on above: Performed By: #### Gerry INGRAM, CMP #### [facility] [address] [place] [address] [address] Geri Pradhan ALP [Catalytic activity/Vol] 65 U/L Normal 46-116 [facility] Comment on above: Performed By: #### Gerry INGRAM, CMP #### [facility] [address] [place] [address] [address] Geri Pradhan ALT [Catalytic activity/Vol] 23 U/L Normal 14-59 [facility] Comment on above: Performed By: #### Gerry INGRAM, CMP #### [facility] [address] [place] [address] [address] Geri Pradhan Anion gap [Moles/Vol] 2.0 mmol/L Normal [facility] Comment on above: Performed By: #### Gerry INGRAM, CMP #### [facility] [address] [place] [address] [address] Geri Pradhan AST [Catalytic activity/Vol] 17 U/L Normal 15-37 [facility] Comment on above: Performed By: #### Gerry INGRAM, CMP #### [facility] [address] [place] [address] [address] Geri Pradhan Bilirubin [Mass/Vol] 0.1 mg/dL Critically low 0.2-1.0 [facility] Comment on above: Performed By: #### Gerry NIGRAM, CMP #### [facility] [address] [place] [address] [address] Geri Pradhan Calcium [Mass/Vol] 9.0 mg/dL Normal 8.5-10.1 [facility] Comment on above: Performed By: #### Gerry INGRAM, CMP #### [facility] [address] [place] [address] [address] Geri Pradhan Chloride [Moles/Vol] 99 mmol/L Normal 98-107 [facility] [facility] Comment on above: Performed By: #### Gerry INGRAM, CMP #### [facility] [address] [address] [address] Geri Pradhan CO2 [Moles/Vol] 45.3 mmol/L Critically high 21.0-32.0 [facility] Comment on above: Performed By: #### Gerry INGRAM, CMP #### [facility] [address] [place] [address] Dr. Geri Pradhan Creatinine [Mass/Vol] 0.50 mg/dL Critically low 0.55-1.02 [facility] Comment on above: Performed By: #### Gerry INGRAM, CMP #### [facility] [address] [address] [address] Geri Pradhan EGFR-AF BAHRAINI >60 Normal >=60 [facility] Comment on above: Performed By: #### Gerry INGRAM, CMP #### [facility] [address] [place] [address] Dr. Geri Pradhan EGFR-NON AF BAHRAINI >60 Normal >=60 [facility] Comment on above: Performed By: #### Gerry INGRAM, CMP #### [facility] [address] [place] [address] Dr. Geri Pradhan Globulin (S) [Mass/Vol] 3.7 g/dL Normal [facility] Comment on above: Performed By: #### Gerry INGRAM, CMP #### [facility] [address] [address] [address] Geri Pradhan Glucose [Mass/Vol] 180 mg/dL Critically high 74-106 [facility] Comment on above: Performed By: #### Gerry INGRAM, CMP #### [facility] [address] [place] [address] Dr. Geri Pradhan Potassium [Moles/Vol] 4.3 mmol/L Normal 3.5-5.1 [facility] Comment on above: Performed By: #### Gerry INGRAM, CMP #### [facility] [address] [place] [address] Dr. Geri Pradhan Protein [Mass/Vol] 6.4 g/dL Normal 6.4-8.2 [facility] Comment on above: Performed By: #### Gerry INGRAM, CMP #### [facility] [address] [place] [address] Dr. Geri Pradhan Sodium [Moles/Vol] 142 mmol/L Normal 136-145 [facility] Comment on above: Performed By: #### Gerry INGRAM CMP #### [facility] [address] [place] [address] Dr. Geri Pradhan Urea nitrogen [Mass/Vol] 13.0 mg/dL Normal 7.0-18.0 [facility] Comment on above: Performed By: #### Gerry INGRAM CMP #### [facility] [address] [place] [address] Dr. Geri Pradhan Urea nitrogen/Creatinine [Mass ratio] 26.0 mg/mg Normal [facility] Comment on above: Performed By: #### Gerry INGRAM CMP #### [facility] [address] [place] [address] Dr. Geri Pradhan THEOPHYLLINEon 09-05-2022 THEOPHYLLINE <2.0 Critically low 10.0-20.0 [facility] Comment on above: Performed By: #### Gerry INGRAM, CMP #### [facility] [address] [place] [address] Dr. Geri Pradhan CBC AUTO DIFFon 09-04-2022 BASO # 0.0 103/ul Normal 0.0-0.1 [facility] Comment on above: Performed By: #### R SPLUS #### [facility] [address] [place] [address] Dr. Geri Pradhan Basophils/100 WBC (Bld) 0.1 % Critically low 0.2-2.0 [facility] Comment on above: Performed By: #### Araseli SPLUS #### [facility] [address] [place], [place] [id number] Dr. Geri Pradhan EO # 0.0 103/ul Normal 0.0-0.7 [facility] Comment on above: Performed By: #### R SPLUS #### [facility] [address] [place] [address] Dr. Geri Pradhan Eosinophils/100 WBC (Bld) 0.0 % Critically low 0.9-7.0 [facility] Comment on above: Performed By: #### R SPLUS #### [facility] [address] [place] [address] Dr. Geri Pradhan Erythrocyte distribution width (RBC) [Ratio] 13.4 % Normal 11.0-15.0 [facility] Comment on above: Performed By: #### R SPLUS #### [facility] [address] [place] [address] Dr. Geri Pradhan Hematocrit (Bld) [Volume fraction] 42.8 % Normal 36.0-48.0 [facility] Comment on above: Performed By: #### R SPLUS #### [facility] [address] [place] [address] Dr. Geri Pradhan Hemoglobin (Bld) [Mass/Vol] 12.8 g/dL Normal 12.0-16.0 [facility] Comment on above: Performed By: #### R SPLUS #### [facility] [address] [place] [address] Dr. Geri Pradhan IG # 0.25 10e3/ul Critically high 0.00-0.03 [facility] Comment on above: Performed By: #### R SPLUS #### [facility] [address] [place] [address] Dr. Geri Pradhan IG % 2.0 % Critically high 0.0-0.5 [facility] Comment on above: Performed By: #### R SPLUS #### [facility] [address] [place] [address] Dr. Geri Pradhan LYMPH # 0.4 103/ul Critically low 1.2-3.8 [facility] Comment on above: Performed By: #### R SPLUS #### [facility] [address] [address] [address] Geri Pradhan Lymphocytes/100 WBC (Bld) 3.6 % Critically low 20.5-60.0 [facility] Comment on above: Performed By: #### R SPLUS #### [facility] [address] [address] [address] Geri Pradhan MANUAL DIFF REQ NO Normal [facility] Comment on above: Performed By: #### R SPLUS #### [facility] [address] [address] [address] Geri Pradhan MCH (RBC) [Entitic mass] 26.8 pg Normal 26.7-34.0 [facility] Comment on above: Performed By: #### R SPLUS #### [facility] [address] [place] [address] Dr. Geri Pradhan MCHC (RBC) [Mass/Vol] 29.9 g/dL Normal 29.9-35.2 [facility] Comment on above: Performed By: #### R SPLUS #### [facility] [address] [place] [address] Dr. Geri Pradhan MCV (RBC) [Entitic vol] 89.5 fL Normal 81.0-99.0 [facility] Comment on above: Performed By: #### R SPLUS #### [facility] [address] [place] [address] Dr. Geri Pradhan MONO # 0.2 103/ul Critically low 0.3-0.8 [facility] Comment on above: Performed By: #### R SPLUS #### [facility] [address] [place] [address] Dr. Geri Pradhan Monocytes/100 WBC (Bld) 1.9 % Normal 1.7-12.0 [facility] Comment on above: Performed By: #### R SPLUS #### [facility] [address] [place] [address] Dr. Geri Pradhan NEUT # 11.4 103/ul Critically high 1.4-6.5 [facility] Comment on above: Performed By: #### R SPLUS #### [facility] [address] [address] [address] Geri Pradhan Neutrophils/100 WBC (Bld) 92.4 % Critically high 43.0-75.0 [facility] Comment on above: Performed By: #### R SPLUS #### [facility] [address] [address] [address] Geri Pradhan Platelet mean volume (Bld) [Entitic vol] 8.9 fL Critically low 9.5-13.5 [facility] Comment on above: Performed By: #### R SPLUS #### [facility] [address] [address] [address] Geri Pradhan PLT 350 103/ul Normal 150-450 [facility] Comment on above: Performed By: #### R SPLUS #### [facility] [address] [address] [address] Geri Pradhan RBC 4.78 106/ul Normal 4.20-5.40 [facility] Comment on above: Performed By: #### R SPLUS #### [facility] [address] [address] [address] Geri Pradhan WBC 12.3 103/ul Critically high 4.0-11.0 [facility] Comment on above: Performed By: #### R SPLUS #### [facility] [address] [address] [address] Geri Pradhan POINT OF CARE GLUCOSEon 08-12 Glucose [Mass/Vol] 142 mg/dL Critically high 74-106 [facility] Comment on above: Performed By: #### P OCGLUC #### [facility] [address] [address] [address] Geri Pradhan Glucose [Mass/Vol] 198 mg/dL Critically high 74-106 [facility] Comment on above: Performed By: #### Gerry INGRAM CMP #### [facility] [address] [address] [address] Geri Pradhan Glucose [Mass/Vol] 147 mg/dL Critically high 74-106 [facility] Comment on above: Performed By: #### Gerry INGRAM CMP #### [facility] [address] [address] [address] Geri Pradhan PROF 14(COMP METB)on 023 Albumin [Mass/Vol] 2.9 g/dL Critically low 3.4-5.0 [facility] Comment on above: Performed By: #### Gerry INGRAM, CMP #### [facility] [address] [address] [address] Geri Pradhan Albumin/Globulin [Mass ratio] 0.7 {ratio} Normal [facility] Comment on above: Performed By: #### Gerry INGRAM, CMP #### [facility] [address] [address] [address] Geir Pradhan ALP [Catalytic activity/Vol] 73 U/L Normal 46-116 [facility] Comment on above: Performed By: #### Gerry INGRAM, CMP #### [facility] [address] [address] [address] Geri Pradhan ALT [Catalytic activity/Vol] 24 U/L Normal 14-59 [facility] Comment on above: Performed By: #### Gerry INGRAM, CMP #### [facility] [address] [address] [address] Geri Pradhan Anion gap [Moles/Vol] 3.2 mmol/L Normal [facility] Comment on above: Performed By: #### Gerry INGRAM, CMP #### [facility] [address] [address] [address] Geri Pradhan AST [Catalytic activity/Vol] 17 U/L Normal 15-37 [facility] Comment on above: Performed By: #### Gerry INGRAM, CMP #### [facility] [address] [address] [address] Geri Pradhan Bilirubin [Mass/Vol] 0.1 mg/dL Critically low 0.2-1.0 [facility] Comment on above: Performed By: #### Gerry INGRAM, CMP #### [facility] [address] [address] [address] Geri Pradhan Calcium [Mass/Vol] 9.4 mg/dL Normal 8.5-10.1 [facility] Comment on above: Performed By: #### Gerry INGRAM, CMP #### [facility] [address] [address] [address] Geri Pradhan Chloride [Moles/Vol] 100 mmol/L Normal 98-107 [facility] Comment on above: Performed By: #### Gerry INGRAM, CMP #### [facility] [address] [address] [address] Geri Pradhan CO2 [Moles/Vol] 43.2 mmol/L Critically high 21.0-32.0 [facility] Comment on above: Performed By: #### Gerry INGRAM, CMP #### [facility] [address] [address] [address] Geri Pradhan Creatinine [Mass/Vol] 0.52 mg/dL Critically low 0.55-1.02 [facility] Comment on above: Performed By: #### Gerry INGRAM, CMP #### [facility] [address] [address] [address] Geri Pradhan EGFR-AF BAHRAINI >60 Normal >=60 [facility] Comment on above: Performed By: #### Gerry INGRAM, CMP #### [facility] [address] [address] [address] Geri Pradhan EGFR-NON AF BAHRAINI >60 Normal >=60 [facility] Comment on above: Performed By: #### Gerry INGRAM, CMP #### [facility] [address] [address] [address] Geri Pradhan Globulin (S) [Mass/Vol] 4.2 g/dL Normal [facility] Comment on above: Performed By: #### Gerry INGRAM, CMP #### [facility] [address] [address] [address] Geri Pradhan Glucose [Mass/Vol] 138 mg/dL Critically high 74-106 [facility] Comment on above: Performed By: #### Gerry INGRAM, CMP #### [facility] [address] [address] [address] Geri Pradhan Potassium [Moles/Vol] 4.4 mmol/L Normal 3.5-5.1 [facility] Comment on above: Performed By: #### T JUAN JOSE, CMP #### [facility] [address] [address] [address] Geri Pradhan Protein [Mass/Vol] 7.1 g/dL Normal 6.4-8.2 [facility] Comment on above: Performed By: #### T JUAN JOSE, CMP #### [facility] [address] [place] [address] Dr. Geri Pradhan Sodium [Moles/Vol] 142 mmol/L Normal 136-145 [facility] Comment on above: Performed By: #### T JUAN JOSE, CMP #### [facility] [address] [place] [address] Dr. Geri Pradhan Urea nitrogen [Mass/Vol] 15.0 mg/dL Normal 7.0-18.0 [facility] Comment on above: Performed By: #### Gerry INGRAM, CMP #### [facility] [address] [place] [address] Dr. Geri Pradhan Urea nitrogen/Creatinine [Mass ratio] 28.8 mg/mg Normal [facility] Comment on above: Performed By: #### Gerry INGRAM, CMP #### [facility] [address] [place] [address] Dr. Geri Pradhan RESPIRATORY PANEL PLUSon Adenovirus Not detected Normal NOT DETECTED [facility] Comment on above: Performed By: #### R SPLUS #### [facility] [address] [place] [address] Dr. Geri Joe. Parapertusis Not detected Normal NOT DETECTED [facility] Comment on above: Performed By: #### R SPLUS #### [facility] [address] [place] [address] Dr. Geri Bourne Pertussis Not detected Normal NOT DETECTED [facility] Comment on above: Performed By: #### R SPLUS #### [facility] [address] [place] [address] Dr. Geri Pradhan Chlamydia Pneumoniae Not detected Normal NOT DETECTED [facility] Comment on above: Performed By: #### R SPLUS #### [facility] [address] [place] [address] Dr. Geri Pradhan Coronavirus 229E Not detected Normal NOT DETECTED [facility] Comment on above: Performed By: #### R SPLUS #### [facility] [address] [place] [address] Dr. Geri Pradhan Coronavirus HKU1 Not detected Normal NOT DETECTED [facility] Comment on above: Performed By: #### R SPLUS #### [facility] [address] [place] [address] Dr. Geri Pradhan Coronavirus NL63 Not detected Normal NOT DETECTED [facility] Comment on above: Performed By: #### R SPLUS #### [facility] [address] [place] [address] Dr. Geri Pradhan Coronavirus OC43 Not detected Normal NOT DETECTED [facility] Comment on above: Performed By: #### R SPLUS #### [facility] [address] [place] [address] Dr. Geri Pradhan Influenza A H1 Not detected Normal NOT DETECTED [facility] Comment on above: Performed By: #### R SPLUS #### [facility] [address] [place] [address] Dr. Geri Pradhan Influenza A H1 2009 Not detected Normal NOT DETECTED [facility] Comment on above: Performed By: #### R SPLUS #### [facility] [address] [place] [address] Dr. Geri Pradhan Influenza A H3 Not detected Normal NOT DETECTED [facility] Comment on above: Performed By: #### R SPLUS #### [facility] [address] [place] [address] Dr. Geri Pradhan Influenza B Not detected Normal NOT DETECTED [facility] Comment on above: Performed By: #### R SPLUS #### [facility] [address] [place] [address] Dr. Geri Pradhan Metapneumovirus Not detected Normal NOT DETECTED [facility] Comment on above: Performed By: #### R SPLUS #### [facility] [address] [place] [address] Dr. Geri Pradhan Mycoplas. Pneumoniae Not detected Normal NOT DETECTED [facility] Comment on above: Performed By: #### R SPLUS #### [facility] [address] [place] [address] Dr. Geri Pradhan Parainfluenza 1 Not detected Normal NOT DETECTED [facility] Comment on above: Performed By: #### R SPLUS #### [facility] [address] [place] [address] Dr. Geri Pradhan Parainfluenza 2 Not detected Normal NOT DETECTED [facility] Comment on above: Performed By: #### R SPLUS #### [facility] [address] [place] [address] Dr. Geri Pradhan Parainfluenza 3 Detected Abnormal NOT DETECTED [facility] Comment on above: Performed By: #### R SPLUS #### [facility] [address] [place] [address] Dr. Geri Pradhan Parainfluenza 4 Not detected Normal NOT DETECTED [facility] Comment on above: Performed By: #### R SPLUS #### [facility] [address] [place] [address] Dr. Geri Pradhan Rhino/Enterovirus Not detected Normal NOT DETECTED [facility] Comment on above: Performed By: #### R SPLUS #### [facility] [address] [place] [address] Dr. Geri Pradhan RP2 Header 1 RESPIRATORY PANEL: VIRUSES Normal [facility] Comment on above: Performed By: #### R SPLUS #### [facility] [address] [place] [address] Dr. Geri Pradhan RP2 Header 2 RESPIRATORY PANEL: BACTERIA Normal [facility] Comment on above: Performed By: #### R SPLUS #### [facility] [address] [place] [address] Dr. Geri Pradhan RSV Not detected Normal NOT DETECTED [facility] Comment on above: Performed By: #### R SPLUS #### [facility] [address] [place] [address] Dr. Geri Pradhan SARS-CoV-2 (COVID-19) RNA KRUNAL+probe Ql (Unsp spec) Not detected Normal NOT DETECTED [facility] Comment on above: Performed By: #### R SPLUS #### [facility] [address] [place] [address] Dr. Geri Pradhan THEOPHYLLINEon 09-04-2022 THEOPHYLLINE <2.0 Critically low 10.0-20.0 [facility] Comment on above: Performed By: #### T JUAN JOSE, CMP #### [facility] [address] [place] [address] Dr. Geri Pradhan CBC AUTO DIFFon 09-03-2022 BASO # 0.0 103/ul Normal 0.0-0.1 [facility] Comment on above: Performed By: #### P OCGLUC #### [facility] [address] [place] [address] Dr. Geri Pradhan Basophils/100 WBC (Bld) 0.1 % Critically low 0.2-2.0 [facility] Comment on above: Performed By: #### P OCGLUC #### [facility] [address] [place] [address] Dr. Geri Pradhan EO # 0.0 103/ul Normal 0.0-0.7 [facility] Comment on above: Performed By: #### P OCGLUC #### [facility] [address] [place] [address] Dr. Geri Pradhan Eosinophils/100 WBC (Bld) 0.0 % Critically low 0.9-7.0 [facility] Comment on above: Performed By: #### P OCGLUC #### [facility] [address] [place] [address] Dr. Geri Pradhan Erythrocyte distribution width (RBC) [Ratio] 13.0 % Normal 11.0-15.0 [facility] Comment on above: Performed By: #### P OCGLUC #### [facility] [address] [place] [address] Dr. Geri Pradhan Hematocrit (Bld) [Volume fraction] 42.1 % Normal 36.0-48.0 [facility] Comment on above: Performed By: #### P OCGLUC #### [facility] [address] [address] [address] Geri Pradhan Hemoglobin (Bld) [Mass/Vol] 12.3 g/dL Normal 12.0-16.0 [facility] Comment on above: Performed By: #### P OCGLUC #### [facility] [address] [address] [address] Geri Pradhan IG # 0.13 10e3/ul Critically high 0.00-0.03 [facility] Comment on above: Performed By: #### P OCGLUC #### [facility] [address] [address] [address] Geri Pradhan IG % 1.2 % Critically high 0.0-0.5 [facility] Comment on above: Performed By: #### P OCGLUC #### [facility] [address] [place] [address] Dr. Geri Pradhan LYMPH # 0.6 103/ul Critically low 1.2-3.8 [facility] Comment on above: Performed By: #### P OCGLUC #### [facility] [address] [address] [address] Geri Pradhan Lymphocytes/100 WBC (Bld) 6.0 % Critically low 20.5-60.0 [facility] Comment on above: Performed By: #### P OCGLUC #### [facility] [address] [place] [address] Dr. Geri Pradhan MANUAL DIFF REQ NO Normal [facility] Comment on above: Performed By: #### P OCGLUC #### [facility] [address] [address] [address] Geri Pradhan MCH (RBC) [Entitic mass] 26.0 pg Critically low 26.7-34.0 [facility] Comment on above: Performed By: #### P OCGLUC #### [facility] [address] [address] [address] Geri Pradhan MCHC (RBC) [Mass/Vol] 29.2 g/dL Critically low 29.9-35.2 [facility] Comment on above: Performed By: #### P OCGLUC #### [facility] [address] [address] [address] Geri Pradhan MCV (RBC) [Entitic vol] 89.0 fL Normal 81.0-99.0 [facility] Comment on above: Performed By: #### P OCGLUC #### [facility] [address] [address] [address] Geri Pradhan MONO # 0.2 103/ul Critically low 0.3-0.8 [facility] Comment on above: Performed By: #### P OCGLUC #### [facility] [address] [address] [address] Geri Pradhan Monocytes/100 WBC (Bld) 2.0 % Normal 1.7-12.0 [facility] Comment on above: Performed By: #### P OCGLUC #### [facility] [address] [place] [address] Dr. Geri Pradhan NEUT # 9.6 103/ul Critically high 1.4-6.5 [facility] Comment on above: Performed By: #### P OCGLUC #### [facility] [address] [place] [address] Dr. Geri Pradhan Neutrophils/100 WBC (Bld) 90.7 % Critically high 43.0-75.0 [facility] Comment on above: Performed By: #### P OCGLUC #### [facility] [address] [place] [address] Dr. Geri Pradhan Platelet mean volume (Bld) [Entitic vol] 9.1 fL Critically low 9.5-13.5 [facility] Comment on above: Performed By: #### P OCGLUC #### [facility] [address] [place] [address] Dr. Geri Pradhan PLT 302 103/ul Normal 150-450 [facility] Comment on above: Performed By: #### P OCGLUC #### [facility] [address] [place] [address] Dr. Geri Pradhan RBC 4.73 106/ul Normal 4.20-5.40 [facility] Comment on above: Performed By: #### P OCGLUC #### [facility] [address] [address] [address] Geri Pradhan WBC 10.6 103/ul Normal 4.0-11.0 [facility] Comment on above: Performed By: #### P OCGLUC #### [facility] [address] [address] [address] Geri Pradhan POINT OF CARE GLUCOSEon 08-12 Glucose [Mass/Vol] 130 mg/dL Critically high [address] [place] [address] Comment on above: Performed By: #### T JUAN JOSE, CMP #### [facility] [address] [address] [address] Geri Pradhan Glucose [Mass/Vol] 217 mg/dL Critically high [address] [place] [address] Comment on above: Performed By: #### T JUAN JOSE, CMP #### [facility] [address] [address] [address] Geri Pradhan Glucose [Mass/Vol] 327 mg/dL Critically high [address] [place] [address] Comment on above: Performed By: #### C VDTBH #### [facility] [address] [address] [address] Geri Pradhan Glucose [Mass/Vol] 146 mg/dL Critically high [address] [place] [address] Comment on above: Performed By: #### T JUAN JOSE, CMP #### [facility] [address] [address] [address] Geri Pradhan Glucose [Mass/Vol] 174 mg/dL Critically high [address] [place] [address] Comment on above: Performed By: #### T JUAN JOSE, CMP #### [facility] [address] [address] [address] Geri Pradhan PROF 14(COMP METB)on 023 Albumin [Mass/Vol] 2.9 g/dL Critically low 3.4-5.0 [facility] Comment on above: Performed By: #### P OCGLUC #### [facility] [address] [address] [address] Geri Pradhan Albumin/Globulin [Mass ratio] 0.7 {ratio} Normal [facility] Comment on above: Performed By: #### P OCGLUC #### [facility] [address] [address] [address] Geri Pradhan ALP [Catalytic activity/Vol] 74 U/L Normal 46-116 [facility] Comment on above: Performed By: #### P OCGLUC #### [facility] [address] [address] [address] Geri Pradhan ALT [Catalytic activity/Vol] 21 U/L Normal 14-59 [facility] Comment on above: Performed By: #### P OCGLUC #### [facility] [address] [address] [address] Geri Pradhan Anion gap [Moles/Vol] 4.4 mmol/L Normal [facility] Comment on above: Performed By: #### P OCGLUC #### [facility] [address] [place] [address] Dr. Geri Pradhan AST [Catalytic activity/Vol] 17 U/L Normal 15-37 [facility] Comment on above: Performed By: #### P OCGLUC #### [facility] [address] [address] [address] Geri Pradhan Bilirubin [Mass/Vol] 0.2 mg/dL Normal 0.2-1.0 [facility] Comment on above: Performed By: #### P OCGLUC #### [facility] [address] [address] [address] Geri Pradhan Calcium [Mass/Vol] 9.4 mg/dL Normal 8.5-10.1 [facility] Comment on above: Performed By: #### P OCGLUC #### [facility] [address] [address] [address] Geri Pradhan Chloride [Moles/Vol] 99 mmol/L Normal 98-107 [facility] Comment on above: Performed By: #### P OCGLUC #### [facility] [address] [address] [address] Geri Pradhan CO2 [Moles/Vol] 42.8 mmol/L Critically high 21.0-32.0 [facility] Comment on above: Performed By: #### P OCGLUC #### [facility] [address] [address] [address] Geri Pradhan Creatinine [Mass/Vol] 0.55 mg/dL Normal 0.55-1.02 [facility] Comment on above: Performed By: #### P OCGLUC #### [facility] [address] [address] [address] Geri Pradhan EGFR-AF BAHRAINI >60 Normal >=60 [facility] Comment on above: Performed By: #### P OCGLUC #### [facility] [address] [address] [address] Geri Pradhan EGFR-NON AF BAHRAINI >60 Normal >=60 [facility] Comment on above: Performed By: #### P OCGLUC #### [facility] [address] [address] [address] Geri Pradhan Globulin (S) [Mass/Vol] 4.4 g/dL Normal [facility] Comment on above: Performed By: #### P OCGLUC #### [facility] [address] [address] [address] Geri Pradhan Glucose [Mass/Vol] 136 mg/dL Critically high 74-106 [facility] Comment on above: Performed By: #### P OCGLUC #### [facility] [address] [address] [address] Geri Pradhan Potassium [Moles/Vol] 4.2 mmol/L Normal 3.5-5.1 [facility] Comment on above: Performed By: #### P OCGLUC #### [facility] [address] [address] [address] Geri Pradhan Protein [Mass/Vol] 7.3 g/dL Normal 6.4-8.2 [facility] Comment on above: Performed By: #### P OCGLUC #### [facility] [address] [address] [address] Geri Pradhan Sodium [Moles/Vol] 142 mmol/L Normal 136-145 [facility] Comment on above: Performed By: #### P OCGLUC #### [facility] [address] [address] [address] Geri Pradhan Urea nitrogen [Mass/Vol] 14.0 mg/dL Normal 7.0-18.0 [facility] Comment on above: Performed By: #### P OCGLUC #### [facility] [address] [address] [address] Geri Pradhan Urea nitrogen/Creatinine [Mass ratio] 25.5 mg/mg Normal [facility] Comment on above: Performed By: #### P OCGLUC #### [facility] [address] [address] [address] Geri Pradhan THEOPHYLLINEon 09-03-2022 THEOPHYLLINE <2.0 Critically low 10.0-20.0 [facility] Comment on above: Performed By: #### P OCGLUC #### [facility] [address] [place] [address] Dr. Geri Pradhan MAGNESIUMon 09-02-2022 Magnesium [Mass/Vol] 2.3 mg/dL Normal 1.8-2.4 [facility] Comment on above: Performed By: #### T JUAN JOSE, CMP #### [facility] [address] [address] [address] Geri Pradhan POINT OF CARE GLUCOSEon 08-12 Glucose [Mass/Vol] 118 mg/dL Critically high [facility] Comment on above: Performed By: #### R SPLUS #### [facility] [address] [address] [address] Geri Pradhan Glucose [Mass/Vol] 263 mg/dL Critically high -106 [facility] Comment on above: Performed By: #### R SPLUS #### [facility] [address] [address] [address] Geri Pradhan Glucose [Mass/Vol] 160 mg/dL Critically high -106 [facility] Comment on above: Performed By: #### P OCGLUC #### [facility] [address] [address] [address] Geri Pradhan PROF CHEM 8 (BAS METB)on Anion gap [Moles/Vol] 5.3 mmol/L Normal [facility] Comment on above: Performed By: #### Gerry INGRAM, CMP #### [facility] [address] [address] [address] Geri Pradhan Calcium [Mass/Vol] 9.5 mg/dL Normal 8.5-10.1 [facility] Comment on above: Performed By: #### Gerry INGRAM, CMP #### [facility] [address] [address] [address] Geri Pradhan Chloride [Moles/Vol] 94 mmol/L Critically low 98-107 [facility] Comment on above: Performed By: #### Gerry INGRAM, CMP #### [facility] [address] [address] [address] Geri Pradhan CO2 [Moles/Vol] 42.5 mmol/L Critically high 21.0-32.0 [facility] Comment on above: Performed By: #### Gerry INGRAM, CMP #### [facility] [address] [address] [address] Geri Pradhan Creatinine [Mass/Vol] 0.66 mg/dL Normal 0.55-1.02 [facility] Comment on above: Performed By: #### Gerry INGRAM, CMP #### [facility] [address] [address] [address] Geri Pradhan EGFR-AF BAHRAINI >60 Normal >=60 [facility] Comment on above: Performed By: #### Gerry INRGAM, CMP #### [facility] [address] [address] [address] Geri Pradhan EGFR-NON AF BAHRAINI >60 Normal >=60 [facility] Comment on above: Performed By: #### Gerry INGRAM, CMP #### [facility] [address] [address] [address] Geri Pradhan Glucose [Mass/Vol] 183 mg/dL Critically high 74-106 [facility] Comment on above: Performed By: #### Gerry INGRAM, CMP #### [facility] [address] [address] [address] Geri Pradhan Potassium [Moles/Vol] 3.8 mmol/L Normal 3.5-5.1 [facility] Comment on above: Performed By: #### Gerry INGRAM, CMP #### [facility] [address] [address] [address] Geri Pradhan Sodium [Moles/Vol] 138 mmol/L Normal 136-145 [facility] Comment on above: Performed By: #### Gerry INGRAM, CMP #### [facility] [address] [address] [address] Geri Pradhan Urea nitrogen [Mass/Vol] 10.0 mg/dL Normal 7.0-18.0 [facility] Comment on above: Performed By: #### Gerry INGRAM, CMP #### [facility] [address] [place] [address] Dr. Geri Pradhan Urea nitrogen/Creatinine [Mass ratio] 15.2 mg/mg Normal [facility] Comment on above: Performed By: #### Gerry INGRAM, CMP #### [facility] [address] [place] [address] Dr. Geri Pradhan THEOPHYLLINEon 09-02-2022 THEOPHYLLINE <2.0 Critically low 10.0-20.0 [facility] Comment on above: Performed By: #### R SPLUS #### [facility] [address] [place] [address] Dr. Geri Pradhan BLOOD CULTURE ID PANELon A. baumannii Not detected Normal NOT DETECTED [facility] Comment on above: Performed By: #### Gerry INGRAM, CMP #### [facility] [address] [place] [address] Dr. Geri Pradhan Bacteriodes fragilis Not detected Normal NOT DETECTED [facility] Comment on above: Performed By: #### Gerry INGRAM, CMP #### [facility] [address] [place] [address] Dr. Geri Pradhan BCID CONTROLS PASSED Normal [facility] Comment on above: Performed By: #### Gerry INGRAM, CMP #### [facility] [address] [place] [address] Dr. Geri Pradhan BCIDBTHD BLOOD CULTURE BOTTLE INFORMATION Normal [facility] Comment on above: Performed By: #### Gerry INGRAM, CMP #### [facility] [address] [address] [address] Geri Pradhan BCIDHD1 ANTIMICROBIAL RESISTANCE GENES Normal [facility] Comment on above: Performed By: #### Gerry INGRAM, CMP #### [facility] [address] [address] [address] Geri Pradhan BCIDHD2 SEE BELOW [facility] Comment on above: Result Comment: Note : Antimicrobial resitance can occur via multiple mechanisms. A Not Detected result for the [employer] antomicrobial resistance gene assays does not indicate antimicrobial susceptibility. Subculturing is required for species identification and susceptibility testing of isolates. Performed By: #### Gerry INGRAM, CMP #### [facility] [address] [address] [address] Geri Pradhan BCIDHD3 Positive [facility] Comment on above: Performed By: #### Gerry INGRAM, CMP #### [facility] [address] [address] [address] Geri Pradhan BCIDHD4 Negative Normal [facility] Comment on above: Performed By: #### Gerry INGRAM, CMP #### [facility] [address] [address] [address] Geri Pradhan BCIDHD5 YEAST Normal [facility] Comment on above: Performed By: #### Gerry INGRAM, CMP #### [facility] [address] [address] [address] Geri Pradhan Bottle Set: Set 1 Normal [facility] Comment on above: Performed By: #### Gerry INGRAM, CMP #### [facility] [address] [address] [address] Geri Pradhan Bottle: Aerobic Normal [facility] Comment on above: Performed By: #### Gerry INGRAM, CMP #### [facility] [address] [address] [address] Geri Pradhan C. neoformans/gattii Not detected Normal NOT DETECTED [facility] Comment on above: Performed By: #### Gerry INGRAM, CMP #### [facility] [address] [address] [address] Geri Pradhan Milagros albicans Not detected Normal NOT DETECTED [facility] Comment on above: Performed By: #### T JUAN JOSE, CMP #### [facility] [address] [address] [address] Geri Pradhan Milagros auris Not detected Normal NOT DETECTED [facility] Comment on above: Performed By: #### T JUAN JOSE, CMP #### [facility] [address] [address] [address] Geri Pradhan Milagros glabrata Not detected Normal NOT DETECTED [facility] Comment on above: Performed By: #### T JUAN JOSE, CMP #### [facility] [address] [address] [address] Geri Pradhan Milagros Krusei Not detected Normal NOT DETECTED [facility] Comment on above: Performed By: #### T JUAN JOSE, CMP #### [facility] [address] [address] [address] Geri Pradhan Milagros Parapsilosis Not detected Normal NOT DETECTED [facility] Comment on above: Performed By: #### T JUAN JOSE, CMP #### [facility] [address] [place] [address] Dr. Geri Pradhan Milagros Tropicalis Not detected Normal NOT DETECTED [facility] Comment on above: Performed By: #### T JUAN JOSE, CMP #### [facility] [address] [place] [address] Dr. Geri Pradhan CTX-M Resistant Gene Not Applicable Normal NOT DETECTE D [facility] Comment on above: Performed By: #### T JUAN JOSE, CMP #### [facility] [address] [address] [address] Geri Pradhan E. Cloacae complex Not detected Normal NOT DETECTED [facility] Comment on above: Performed By: #### T JUAN JOSE, CMP #### [facility] [address] [place] [address] Dr. Geri Pradhan E. faecalis Not detected Normal NOT DETECTED [facility] Comment on above: Performed By: #### T JUAN JOSE, CMP #### [facility] [address] [address] [address] Geri Pradhan E. faecium Not detected Normal NOT DETECTED [facility] Comment on above: Performed By: #### T JUAN JOSE, CMP #### [facility] [address] [place] [address] Dr. Geri Pradhan Enterobacteriaceae Not detected Normal NOT DETECTED [facility] Comment on above: Performed By: #### T JUAN JOSE, CMP #### [facility] [address] [place] [address] Dr. Geri Pradhan Escherichia coli Not detected Normal NOT DETECTED [facility] Comment on above: Performed By: #### T JUAN JOSE, CMP #### [facility] [address] [place] [address] Dr. Geri Pradhan H. influenzae Not detected Normal NOT DETECTED [facility] Comment on above: Performed By: #### T JUAN JOSE, CMP #### [facility] [address] [place] [address] Dr. Geri Pradhan IMP Resistant Gene Not Applicable Normal NOT DETECTED [facility] Comment on above: Performed By: #### Gerry INGRAM, CMP #### [facility] [address] [place] [address] Dr. Geri Pradhan K. oxytoca Not detected Normal NOT DETECTED [facility] Comment on above: Performed By: #### Gerry INGRAM, CMP #### [facility] [address] [place] [address] Dr. Geri Pradhan K. pneumoniae Not detected Normal NOT DETECTED [facility] Comment on above: Performed By: #### Gerry INGRAM, CMP #### [facility] [address] [place] [address] Dr. Geri Pradhan Klebsiella aerogenes Not detected Normal NOT DETECTED [facility] Comment on above: Performed By: #### Gerry INGRAM, CMP #### [facility] [address] [place] [address] Dr. Geri Pradhan KPC Resistant Gene Not Applicable Normal NOT DETECTED [facility] Comment on above: Performed By: #### T JUAN JOSE, CMP #### [facility] [address] [place] [address] Dr. Geri Pradhan List. monocytogenes Not detected Normal NOT DETECTED [facility] Comment on above: Performed By: #### T JUAN JOSE, CMP #### [facility] [address] [place] [address] Dr. Geri Pradhan Mcr-1 Resistant Gene Not Applicable Normal NOT DETECTE D [facility] Comment on above: Performed By: #### T JUAN JOSE, CMP #### [facility] [address] [place] [address] Dr. Geri Pradhan mecA/C Detected Abnormal NOT DETECTED [facility] Comment on above: Performed By: #### T JUAN JOSE, CMP #### [facility] [address] [place] [address] Dr. Geri Pradhan mecA/C MREJ Not Applicable Normal NOT DETECTED [facility] Comment on above: Performed By: #### T JUAN JOSE, CMP #### [facility] [address] [place] [address] Dr. Geri Pradhan N. meningitidis Not detected Normal NOT DETECTED [facility] Comment on above: Performed By: #### Gerry INGRAM, CMP #### [facility] [address] [place] [address] Dr. Geri Pradhan NDM Resistant Gene Not Applicable Normal NOT DETECTED [facility] Comment on above: Performed By: #### Gerry INGRAM, CMP #### [facility] [address] [place] [address] Dr. Geri Pradhan Oxa-48-like Not Applicable Normal NOT DETECTED [facility] Comment on above: Performed By: #### Gerry INGRAM, CMP #### [facility] [address] [place] [address] Dr. Geri Pradhan Proteus Not detected Normal NOT DETECTED [facility] Comment on above: Performed By: #### T JUAN JOSE, CMP #### [facility] [address] [place] [address] Dr. Geri Pradhan Pseud. aeruginosa Not detected Normal NOT DETECTED [facility] Comment on above: Performed By: #### T JUAN JOSE, CMP #### [facility] [address] [place] [address] Dr. Geri Pradhan S. maltophilia Not detected Normal NOT DETECTED [facility] Comment on above: Performed By: #### Gerry INGRAM, CMP #### [facility] [address] [address] [address] Geri Pradhan Salmonella Not detected Normal NOT DETECTED [facility] Comment on above: Performed By: #### T JUAN JOSE, CMP #### [facility] [address] [address] [address] Geri Pradhan Seratia marcescens Not detected Normal NOT DETECTED [facility] Comment on above: Performed By: #### T JUAN JOSE, CMP #### [facility] [address] [address] [address] Geri Pradhan Site: Right AC Normal [facility] Comment on above: Performed By: #### Gerry INGRAM, CMP #### [facility] [address] [place] [address] Dr. Geri Pradhan Staph. aureus Not detected Normal NOT DETECTED [facility] Comment on above: Performed By: #### Gerry IGNRAM, CMP #### [facility] [address] [place] [address] Dr. Geri Pradhan Stapwilliam. epidermidis Detected Critically abnormal NOT DETECTED [facility] Comment on above: Performed By: #### Gerry INGRAM, CMP #### [facility] [address] [place] [address] Dr. Geri Pradhan Stapwilliam. lugdunensis Not detected Normal NOT DETECTED [facility] Comment on above: Performed By: #### Gerry INGRAM, CMP #### [facility] [address] [place] [address] Dr. Geri Pradhan Staphylococcus Detected Critically abnormal NOT DETECTED [facility] Comment on above: Performed By: #### T JUAN JOSE, CMP #### [facility] [address] [address] [address] Geri Pradhan Strep. agalactiae Not detected Normal NOT DETECTED [facility] Comment on above: Performed By: #### T JUAN JOSE, CMP #### [facility] [address] [place] [address] Dr. Geri Pradhan Strep. pneumoniae Not detected Normal NOT DETECTED The [facility] Comment on above: Performed By: #### T JUAN JOSE, CMP #### [facility] [address] [place] [address] Dr. Geri Pradhan Strep. pyogenes Not detected Normal NOT DETECTED [facility] Comment on above: Performed By: #### T JUAN JOSE, CMP #### [facility] [address] [address] [address] Geri Pradhan Streptococcus Not detected Normal NOT DETECTED [facility] Comment on above: Performed By: #### T JUAN JOSE, CMP #### [facility] [address] [place] [address] Dr. Geri Pradhan Amrit/B Resist. Gene Not Applicable Normal NOT DETECTED [facility] Comment on above: Performed By: #### Gerry INGRAM, CMP #### [facility] [address] [place] [address] Dr. Geri Pradhan VIM Resistant Gene Not Applicable Normal NOT DETECTED [facility] Comment on above: Performed By: #### Gerry INGRAM, CMP #### [facility] [address] [place] [address] Dr. Geri Pradhan [facility] 02 MODE NASAL CANNULA [facility] Comment on above: Performed By: #### R SPLUS #### [facility] [address] [place] [address] Dr. Geri Pradhan ALLENDionne TEST Positive [facility] Comment on above: Performed By: #### R SPLUS #### [facility] [address] [place] [address] Dr. Geri Pradhan Base excess Calc (Bld) [Moles/Vol] 22.8 mmol/L Critically high -2.0-2.0 [facility] Comment on above: Performed By: #### R SPLUS #### [facility] [address] [place] [address] Dr. Geri Pradhan BIPAP PRESSURE Normal [facility] Comment on above: Performed By: #### R SPLUS #### [facility] [address] [place] [address] Dr. Geri Pradhan CPAP [facility] Comment on above: Performed By: #### R SPLUS #### [facility] [address] [address] [address] Geri Pradhan FIO2 Normal [facility] Comment on above: Performed By: #### R SPLUS #### [facility] [address] [place] [address] Dr. Geri Pradhan HCO3 (Bld) [Moles/Vol] 47.1 mmol/L Critically high 22.0-26 .0 [facility] Comment on above: Performed By: #### R SPLUS #### [facility] [address] [place] [address] Dr. Geri Pradhan LPM 2.5 Normal [facility] Comment on above: Performed By: #### R SPLUS #### [facility] [address] [place] [address] Dr. Geri Pradhan MINUTE VOLUME Normal [facility] Comment on above: Performed By: #### R SPLUS #### [facility] [address] [place] [address] Dr. Geri Pradhan Oxygen (Bld) [Partial pressure] 95.8 mm[Hg] Normal 80.0-100.0 [facility] Comment on above: Performed By: #### R SPLUS #### [facility] [address] [place] [address] Dr. Geri Pradhan Oxygen saturation in Blood 98.0 % Normal 95.0-100.0 [facility] Comment on above: Performed By: #### R SPLUS #### [facility] [address] [place] [address] Dr. Geri Pradhan PCO2 71.5 mmHg Critically high 35.0-45.0 [facility] Comment on above: Performed By: #### R SPLUS #### [facility] [address] [place] [address] Dr. Geri Pradhan PEEP [facility] Comment on above: Performed By: #### R SPLUS #### [facility] [address] [place] [address] Dr. Geri Pradhan pH (Bld) 7.428 [pH] Normal 7.350-7.450 [facility] Comment on above: Performed By: #### R SPLUS #### [facility] [address] [address] [address] Geri Pradhan [facility] Comment on above: Performed By: #### R SPLUS #### [facility] [address] [address] [address] Geri Pradhan [facility] Comment on above: Performed By: #### R SPLUS #### [facility] [address] [address] [address] Geri Pradhan PUNCTURE SITE RR [facility] Comment on above: Performed By: #### R SPLUS #### [facility] [address] [place] [address] Dr. Geri Pradhan [facility] Comment on above: Performed By: #### R SPLUS #### [facility] [address] [place] [address] Dr. Geri Pradhan VENT [facility] Comment on above: Performed By: #### R SPLUS #### [facility] [address] [address] [address] Geri Pradhan [facility] Comment on above: Performed By: #### R SPLUS #### [facility] [address] [place] [address] Dr. Geri Pradhan BNPon 09-01-2022 Natriuretic peptide B (Bld) [Mass/Vol] 143.0 pg/mL Normal <=900.0 [facility] Comment on above: Performed By: #### R SPLUS #### [facility] [address] [place] [address] Dr. Geri Pradhan CARDIAC BRAYAN ADMITon 023 CK [Catalytic activity/Vol] 21 U/L Critically low 26-192 [facility] Comment on above: Performed By: #### R SPLUS #### [facility] [address] [place] [address] Dr. Geri Pradhan CK.MB [Mass/Vol] 0.78 ng/mL Normal <=3.60 [facility] Comment on above: Performed By: #### R SPLUS #### [facility] [address] [place] [address] Dr. Geri Pradhan HSTROP 6.9 pg/mL Normal 4.0-51.3 [facility] Comment on above: Result Comment: CUT- OFF POINTS HAVE BEEN ESTABLISHED BASED ON THE FOURTH UNIVERSAL DEFINITIONS OF MYOCARDIAL INFARCTION. THE UPPER REFERENCE LIMIT (URL) OF TROPONIN, DEFINED THE 99TH PERCENTILE OF cTnI DISTRIBUTION IN A REFERENCE POPULATION, HAS BEEN CONFIRMED THE DECISION THRESHOLD FOR [place] DIAGNOSIS. Performed By: #### R SPLUS #### [facility] [address] [place] [address] Dr. Geri Pradhan VIN 20 ng/mL Normal 9-82 [facility] Comment on above: Performed By: #### R SPLUS #### [facility] [address] [place] [address] Dr. Geri Pradhan CBC AUTO DIFFon 09-01-2022 BASO # 0.0 103/ul Normal 0.0-0.1 [facility] Comment on above: Performed By: #### C BC #### [facility] [address] [place] [address] Dr. Geri Pradhan Basophils/100 WBC (Bld) 0.2 % Normal 0.2-2.0 [facility] Comment on above: Performed By: #### C BC #### [facility] [address] [place] [address] Dr. Geri Pradhan EO # 0.1 103/ul Normal 0.0-0.7 [facility] Comment on above: Performed By: #### C BC #### [facility] [address] [place] [address] Dr. Geri Pradhan Eosinophils/100 WBC (Bld) 1.5 % Normal 0.9-7.0 [facility] Comment on above: Performed By: #### C BC #### [facility] [address] [place] [address] Dr. Geri Pradhan Erythrocyte distribution width (RBC) [Ratio] 12.8 % Normal 11.0-15.0 [facility] Comment on above: Performed By: #### C BC #### [facility] [address] [place] [address] Dr. Geri Pradhan Hematocrit (Bld) [Volume fraction] 41.8 % Normal 36.0-48.0 [facility] Comment on above: Performed By: #### C BC #### [facility] [address] [place] [address] Dr. Geri Pradhan Hemoglobin (Bld) [Mass/Vol] 13.1 g/dL Normal 12.0-16.0 [facility] Comment on above: Performed By: #### C BC #### [facility] [address] [place] [address] Dr. Geri Pradhan IG # 0.05 10e3/ul Critically high 0.00-0.03 [facility] Comment on above: Performed By: #### C BC #### [facility] [address] [place] [address] Dr. Geri Pradhan IG % 0.5 % Normal 0.0-0.5 [facility] Comment on above: Performed By: #### C BC #### [facility] [address] [place] [address] Dr. Geri Pradhan LYMPH # 2.4 103/ul Normal 1.2-3.8 [facility] Comment on above: Performed By: #### C BC #### [facility] [address] [place] [address] Dr. Geri Pradhan Lymphocytes/100 WBC (Bld) 24.9 % Normal 20.5-60.0 [facility] Comment on above: Performed By: #### C BC #### [facility] [address] [place] [address] Dr. Geri Pradhna MANUAL DIFF REQ NO Normal [facility] Comment on above: Performed By: #### C BC #### [facility] [address] [place] [address] Dr. Geri Pradhan MCH (RBC) [Entitic mass] 27.2 pg Normal 26.7-34.0 [facility] Comment on above: Performed By: #### C BC #### [facility] [address] [place] [address] Dr. Geri Pradhan MCHC (RBC) [Mass/Vol] 31.3 g/dL Normal 29.9-35.2 [facility] Comment on above: Performed By: #### C BC #### [facility] [address] [place] [address] Dr. Geri Pradhan MCV (RBC) [Entitic vol] 86.7 fL Normal 81.0-99.0 [facility] Comment on above: Performed By: #### C BC #### [facility] [address] [address] [address] Geri Pradhan MONO # 0.9 103/ul Critically high 0.3-0.8 [facility] Comment on above: Performed By: #### C BC #### [facility] [address] [place] [address] Dr. Geri Pradhan Monocytes/100 WBC (Bld) 8.9 % Normal 1.7-12.0 [facility] Comment on above: Performed By: #### C BC #### [facility] [address] [place] [address] Dr. Geri Pradhan NEUT # 6.1 103/ul Normal 1.4-6.5 [facility] Comment on above: Performed By: #### C BC #### [facility] [address] [place] [address] Dr. Geri Pradhan Neutrophils/100 WBC (Bld) 64.0 % Normal 43.0-75.0 [facility] Comment on above: Performed By: #### C BC #### [facility] [address] [place] [address] Dr. Geri Pradhan Platelet mean volume (Bld) [Entitic vol] 9.2 fL Critically low 9.5-13.5 [facility] Comment on above: Performed By: #### C BC #### [facility] [address] [place] [address] Dr. Geri Pradhan PLT 349 103/ul Normal 150-450 [facility] Comment on above: Performed By: #### C BC #### [facility] [address] [place] [address] Dr. Geri Pradhan RBC 4.82 106/ul Normal 4.20-5.40 [facility] Comment on above: Performed By: #### C BC #### [facility] [address] [place] [address] Dr. Geri Pradhan WBC 9.5 103/ul Normal 4.0-11.0 [facility] Comment on above: Performed By: #### C BC #### [facility] [address] [place] [address] Dr. Geri Pradhan CULTURE BLOODon 09-01-2022 Microscopic examination of blood, culture Culture Observations: NO GROWTH AT 5 DAYS. Normal [facility] Comment on above: Performed By: #### P OCGLUC #### [facility] [address] [place] [address] Dr. Geri Pradhan CULTURE URINEon 09-01-2022 CULTURE URINE Culture Observations : EDUARDO TO FOLLOW. Isolate 1 Pseudomonas aeruginosa 10,000 cfu/mL of Normal [facility] Comment on above: Performed By: #### P OCGLUC #### [facility] [address] [place] [address] Dr. Geri Pradhan ER URINE PROFILEon 3 Bilirubin Ql (U) Negative Normal NEGATIVE [facility] Comment on above: Performed By: #### P OCGLUC #### [facility] [address] [place] [address] Dr. Geri Pradhan Clarity (U) CLEAR Normal CLEAR [facility] Comment on above: Performed By: #### P OCGLUC #### [facility] [address] [place] [address] Dr. Geri Pradhan Color (U) LT. YELLOW Normal YELLOW [facility] Comment on above: Performed By: #### P OCGLUC #### [facility] [address] [place] [address] Dr. Geri Pradhan ERUAHSuyapa A micrscopic examination will be performed if indicated. Normal [facility] Comment on above: Performed By: #### P OCGLUC #### [facility] [address] [place] [address] Dr. Geri Pradhan Glucose Ql (U) Negative Normal NEGATIVE [facility] Comment on above: Performed By: #### P OCGLUC #### [facility] [address] [address] [address] Geri Pradhan Hemoglobin Ql (U) TRACE-INTACT Abnormal NEGATIVE [facility] Comment on above: Performed By: #### P OCGLUC #### [facility] [address] [address] [address] Geri Pradhan Ketones Ql (U) Negative Normal NEGATIVE [facility] Comment on above: Performed By: #### P OCGLUC #### [facility] [address] [place] [address] Dr. Geri Pradhan LEUKOCYTES MODERATE Abnormal NEGATIVE [facility] Comment on above: Performed By: #### P OCGLUC #### [facility] [address] [place] [address] Dr. Geri Pradhan Nitrite Ql (U) Negative Normal NEGATIVE [facility] Comment on above: Performed By: #### P OCGLUC #### [facility] [address] [place] [address] Dr. Geri Pradhan pH (U) 6.5 [pH] Normal 5-9 [facility] Comment on above: Performed By: #### P OCGLUC #### [facility] [address] [place] [address] Dr. Geri Pradhan SPEC GRAVITY 1.010 Normal 1.005-<=1.02 5 [facility] Comment on above: Performed By: #### P OCGLUC #### [facility] [address] [place] [address] Dr. Geri Pradhan UA PROTEIN Negative Normal NEGATIVE/ TRACE [facility] Comment on above: Performed By: #### P OCGLUC #### [facility] [address] [place] [address] Dr. Geri Pradhan UR MICRO IND INDICATED Normal [facility] Comment on above: Performed By: #### P OCGLUC #### [facility] [address] [place] [address] Dr. Geri Pradhan Urobilinogen Qn (U) 0.2 {Lelia'U}/dL Normal 0.2 - 1. 0 [facility] Comment on above: Performed By: #### P OCGLUC #### [facility] [address] [address] [address] Geri Pradhan LACTATE/LACTIC ACIDon 2022 Lactate [Moles/Vol] 0.7 mmol/L Normal 0.4-2.0 [facility] Comment on above: Performed By: #### T JUAN JOSE, CMP #### [facility] [address] [address] [address] Geri Pradhan PROF 14(COMP METB)on 023 Albumin [Mass/Vol] 3.3 g/dL Critically low 3.4-5.0 [facility] Comment on above: Performed By: #### P OCGLUC #### [facility] [address] [place] [address] Dr. Geri Pradhan Albumin/Globulin [Mass ratio] 0.7 {ratio} Normal [facility] Comment on above: Performed By: #### P OCGLUC #### [facility] [address] [place] [address] Dr. Geri Pradhan ALP [Catalytic activity/Vol] 81 U/L Normal 46-116 [facility] Comment on above: Performed By: #### P OCGLUC #### [facility] [address] [place] [address] Dr. Geri Pradhan ALT [Catalytic activity/Vol] 19 U/L Normal 14-59 [facility] Comment on above: Performed By: #### P OCGLUC #### [facility] [address] [place] [address] Dr. Geri Pradhan Anion gap [Moles/Vol] 3.1 mmol/L Normal [facility] Comment on above: Performed By: #### P OCGLUC #### [facility] [address] [place] [address] Dr. Geri Pradhan AST [Catalytic activity/Vol] 16 U/L Normal 15-37 [facility] Comment on above: Performed By: #### P OCGLUC #### [facility] [address] [place] [address] Dr. Geri Pradhan Bilirubin [Mass/Vol] 0.2 mg/dL Normal 0.2-1.0 [facility] Comment on above: Performed By: #### P OCGLUC #### [facility] [address] [address] [address] Geri Pradhan Calcium [Mass/Vol] 9.8 mg/dL Normal 8.5-10.1 [facility] Comment on above: Performed By: #### P OCGLUC #### [facility] [address] [address] [address] Geri Pradhan Chloride [Moles/Vol] 93 mmol/L Critically low 98-107 [facility] Comment on above: Performed By: #### P OCGLUC #### [facility] [address] [address] [address] Geri Pradhan CO2 [Moles/Vol] 45.3 mmol/L Critically high 21.0-32.0 [facility] Comment on above: Performed By: #### P OCGLUC #### [facility] [address] [address] [address] Geri Pradhan Creatinine [Mass/Vol] 0.51 mg/dL Critically low 0.55-1.02 [facility] Comment on above: Performed By: #### P OCGLUC #### [facility] [address] [place] [address] Dr. Geri Pradhan EGFR-AF BAHRAINI >60 Normal >=60 [facility] Comment on above: Performed By: #### P OCGLUC #### [facility] [address] [address] [address] Geri Pradhan EGFR-NON AF BAHRAINI >60 Normal >=60 [facility] Comment on above: Performed By: #### P OCGLUC #### [facility] [address] [address] [address] Geri Pradhan Globulin (S) [Mass/Vol] 4.8 g/dL Normal [facility] Comment on above: Performed By: #### P OCGLUC #### [facility] [address] [address] [address] Geri Pradhan Glucose [Mass/Vol] 98 mg/dL Normal 74-106 [facility] Comment on above: Performed By: #### P OCGLUC #### [facility] [address] [address] [address] Geri Pradhan Potassium [Moles/Vol] 3.4 mmol/L Critically low 3.5-5.1 [facility] Comment on above: Performed By: #### P OCGLUC #### [facility] [address] [address] [address] Geri Pradhan Protein [Mass/Vol] 8.1 g/dL Normal 6.4-8.2 [facility] Comment on above: Performed By: #### P OCGLUC #### [facility] [address] [address] [address] Geri Pradhan Sodium [Moles/Vol] 138 mmol/L Normal 136-145 [facility] Comment on above: Performed By: #### P OCGLUC #### [facility] [address] [address] [address] Geri Pradhan Urea nitrogen [Mass/Vol] 11.0 mg/dL Normal 7.0-18.0 [facility] Comment on above: Performed By: #### P OCGLUC #### [facility] [address] [address] [address] Geri Pradhan Urea nitrogen/Creatinine [Mass ratio] 21.6 mg/mg Normal [facility] Comment on above: Performed By: #### P OCGLUC #### [facility] [address] [address] [address] Geri Pradhan PROTIMEon 09-01-2022 INR Coag (PPP) [Relative time] 0.96 {INR} Normal [facility] Comment on above: Performed By: #### T JUAN JOSE CMP #### [facility] [address] [address] [address] Geri Pradhan INR GUIDELINES SEE BELOW Normal [facility] Comment on above: Result Comment: KAROL RED INR: 2.0 - 3.0 CONDITIONS NOT LISTED BELOW 2.5 - 3.5 FOR PROSTHETIC HEART VALVE REPLACEMENT 2.5 - 3.5 RECURRENT THROMBOSIS Performed By: #### Gerry INGRAM, CMP #### [facility] [address] [place] [address] Dr. Geri Pradhan PT Coag (PPP) [Time] 10.2 s Normal 9.0-11.6 [facility] Comment on above: Performed By: #### T JUAN JOSE, CMP #### [facility] [address] [place] [address] Dr. Geri Pradhan PTTon 09-01-2022 aPTT Coag (Bld) [Time] 25.5 s Normal 22.3-36.2 [facility] Comment on above: Performed By: #### T JUAN JOSE, CMP #### [facility] [address] [place] [address] Dr. Geri Pradhan URINE MICROSCOPIC ONLYon BACTERIA NONE SEEN Normal NONE SEEN [facility] Comment on above: Performed By: #### P OCGLUC #### [facility] [address] [place] [address] Dr. Geri Pradhan Bacteria identified Cx Nom (U) INDICATED Normal [facility] Comment on above: Performed By: #### P OCGLUC #### [facility] [address] [place] [address] Dr. Geri Pradhan CAST NONE SEEN Normal NONE SEEN [facility] Comment on above: Performed By: #### P OCGLUC #### [facility] [address] [place] [address] Dr. Geri Pradhan Crystals LM Nom (Urine sed) NONE SEEN Normal NONE SEEN [facility] Comment on above: Performed By: #### P OCGLUC #### [facility] [address] [place] [address] Dr. Geri Pradhan Epithelial cells LM Ql (Urine sed) FEW Abnormal NONE SEEN /RARE [facility] Comment on above: Performed By: #### P OCGLUC #### [facility] [address] [place] [address] Dr. Geri Pradhan MUCOUS NONE SEEN Normal NONE SEEN [facility] Comment on above: Performed By: #### P OCGLUC #### [facility] [address] [place] [address] Dr. Geri Pradhan RBC 0-2 Normal 0-2 [facility] Comment on above: Performed By: #### P OCGLUC #### [facility] [address] [address] [address] Geri Pradhan WBC 10-20 Abnormal NONE SEEN [facility] Comment on above: Performed By: #### P OCGLUC #### [facility] [address] [place], [place] [address] Dr. Geri Pradhan XR CHEST 1 Von [...] by: EAMON ANDREWS Date: 2022-09-01 20:18 Normal [facility] CNOVon 06-02-2022 CNOV Office Visit (RADTSA ) CINTHIA STANLEY ([id number]) 1960 F Date Time Provider Department 06/02/22 2:00 PM ABDI IQBAL During your visit today, we recorded the following information about you: Temperature Pulse Respiration Blood pressure 97.7 degrees 116/minute 18/minute 125/78 Weight 49.4 kg Abdi Iqbal MD 06/15/2022 8:09 PM Addendum Radiation Oncology - Follow Up Note PATIENT NAME: CINTHIA Stanley PATIENT DIAGNOSIS/PATIENT IDENTIFICATION: Ms. Stanley is a 61-year-old woman with severe COPD, who is diagnosed with Stage IA3, [id number], non-small cell lung cancer arising from a [...] cGy in 5 fractions). INTERVAL HISTORY/ROS: Ms. Stanley returns to clinic today for routine follow-up [...] Aspergillus. 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 She notes that her cough is improved [...] neoplasm is present. ASSESSMENT AND PLAN: Ms. Stanley is a 61-year-old woman with severe COPD, who is diagnosed with Stage IA3, [id number], non-small cell lung cancer arising from a [...] 05/14/2018 (5000 cGy in 5 fractions). Ms. Stanley i (more content not included)... Normal [facility] ASPERGILLUS GALACTOMANNAN AN TIGEN DETECTon 05-28-2022 Aspergillus Ag, BAL/Serum 0.07 Index Normal 0.00-0.49 [facility] Comment on above: Result Comment: Perf ormed at: BN Performed By: #### T JUAN JOSE CMP #### [facility] [address] [place] [address] Dr. Geri Pradhan Test Information . Normal [facility] Comment on above: Result Comment: Perf ormed at: TG Performed By: #### T JUAN JOSE CMP #### [facility] [address] [address] [address] Geri Pradhan ASPERGILLUS AB, QUANTITATIVE DIDon 05-27-2022 Aspergillus flavus Negative Normal Neg:<1:1 [facility] Comment on above: Performed By: #### Gerry INGRAM, CMP #### [facility] [address] [address] [address] Geri Pradhan Aspergillus fumigatus Negative Normal Neg:<1:1 [facility] Comment on above: Performed By: #### Gerry INGRAM, CMP #### [facility] [address] [address] [address] Geri Pradhan Aspergillus niger Negative Normal Neg:<1:1 [facility] Comment on above: Performed By: #### Gerry INGRAM CMP #### [facility] [address] [address] [address] Geri Pradhan CULTURE SPUTUMon 05-23-2022 CULTURE SPUTUM Culture Observations : NORMAL RESPIRATORY NAVA. Normal [facility] Comment on above: Performed By: #### P OCGLUC #### [facility] [address] [address] [address] Geri Pradhan SPUTUM GRAM STAINon 05-23-19 23 COMMENTS [facility] Comment on above: Performed By: #### Gerry INGRAM CMP #### [facility] [address] [address] [address] Geri Pradhan DIPHTHEROIDS Normal [facility] Comment on above: Performed By: #### Gerry INGRAM CMP #### [facility] [address] [address] [address] Geri Pradhan EPITHELIALS <25 [facility] Comment on above: Performed By: #### Gerry INGRAM CMP #### [facility] [address] [address] [address] Geri Pradhan FUNGAL ELEMENTS Normal [facility] Comment on above: Performed By: #### Gerry INGRAM CMP #### [facility] [address] [address] [address] Geri Pradhan GRAM NEG BACILLI Normal [facility] Comment on above: Performed By: #### Gerry INGRAM CMP #### [facility] [address] [address] [address] Geri Pradhan GRAM NEG DIPPLOCOCCI Normal [facility] Comment on above: Performed By: #### T JUAN JOSE, CMP #### [facility] [address] [address] [address] Geri Pradhan GRAM POS BACILLI Normal [facility] Comment on above: Performed By: #### T JUAN JOSE, CMP #### [facility] [address] [address] [address] Geri Pradhan GRAM POSITIVE COCCI MODERATE Normal [facility] Comment on above: Performed By: #### T JUAN JOSE, CMP #### [facility] [address] [address] [address] Geri Pradhan WBC (Bld) [#/Vol] 10*3/uL Normal [facility] Comment on above: Performed By: #### T JUAN JOSE, CMP #### [facility] [address] [place] [address] Dr. Geri Pradhan BRONCHOSCOPYon 05-09-2022 [facility] Covid-19 PCR (CVDTBH)on 04-14 SARS-CoV-2 (COVID-19) RNA KRUNAL+probe Ql (Unsp spec) Not detected Normal NOT DETECTED [facility] Comment on above: Result Comment: This test is not yet approved or cleared by the [place] FDA. When there are no FDA-approved or cleared tests available, and other criteria are met, FDA can make tests available under an emergency access mechanism called an Emergency Use Authorization (EUA). The EUA for this test is supported by the [employer] of Health and Human Service's (HHS's) declaration [...] SARS-CoV-2. Performed By: #### R SPLUS #### [facility] [address] [address] [address] Geri Pradhan Covid-19 PCR ([facility])on 03-14 SARS-CoV-2 (COVID-19) RNA KRUNAL+probe Ql (Unsp spec) Not detected Normal NOT DETECTED [facility] Comment on above: Result Comment: This test is not yet approved or cleared by the [place] FDA. When there are no FDA-approved or cleared tests available, and other criteria are met, FDA can make tests available under an emergency access mechanism called an Emergency Use Authorization (EUA). The EUA for this test is supported by the [place] of Health and Human Service's (HHS's) declaration [...] symptoms consistent with SARS-CoV-2. Performed By: #### T JUAN JOSE, CMP #### [facility] [address] [place] [address] Dr. Geri Pradhan INFLUENZA A AND B AGon 04-08 [facility] SEE BELOW Normal [facility] Comment on above: Result Comment: Nega tive for Flu A protein angiten. Infection due to Flu A cannot be ruled out. Flu A angiten in the sample may be below the detection limit of the test. Performed By: #### T JUAN JOSE, CMP #### [facility] [address] [place] [address] Dr[facility] Normal [facility] Comment on above: Result Comment: Nega tive for Flu B protein antigen. Infection due to Flu B cannot be ruled out. Flu B antigen in the sample may be below the detection limit of the test. Performed By: #### T JUAN JOSE, CMP #### [facility] [address] [place], [place] [address] Dr. Geri Pradhan INFLUENZA A AG Negative Normal NEGATIVE SEE COMMENT [facility] Comment on above: Performed By: #### T JUAN JOSE, CMP #### [facility] [address] [place], [place] [address] Dr. Geri Pradhan INFLUENZA B AG Negative Normal NEGATIVE SEE COMMENT [facility] Comment on above: Performed By: #### T JUAN JOSE, CMP #### [facility] [id number] Geri Pradhan INTERNAL CONTROLS Within Normal Limits Normal Wi thin Normal Limits [facility] Comment on above: Performed By: #### T JUAN JOSE, CMP #### [facility] [id number] Geri Pradhan [address] CHEST W CONon 02-17-2022 CT CHEST [...] JULES RAMIREZ Date: 2022-02-17 08:02 Normal [facility] CREATININEon 02-15-2022 Creatinine [Mass/Vol] 0.52 mg/dL Critically low 0.55-1.02 [facility] Comment on above: Performed By: #### R SPLUS #### [facility] [address] [place] [address] Dr. Geri Pradhan EGFR-AF BAHRAINI >60 Normal >=60 [facility] Comment on above: Performed By: #### R SPLUS #### [facility] [address] [place] [address] Dr. Geri Pradhan EGFR-NON AF BAHRAINI >60 Normal >=60 [facility] Comment on above: Performed By: #### R SPLUS #### [facility] [address] [place] [address] Dr. Geri Pradhan CULTURE SPUTUMon 02-11-2022 CULTURE SPUTUM Isolate 1 Milagros albicans Light growth of Normal [facility] Comment on above: Performed By: #### S PUTCX #### [facility] [address] [place] [address] Dr. Geri Pradhan SPUTUM GRAM STAINon 02-12-20 22 COMMENTS Normal [facility] Comment on above: Performed By: #### R SPLUS #### [facility] [address] [place] [address] Dr. Geri Pradhan DIPHTHEROIDS Normal [facility] Comment on above: Performed By: #### R SPLUS #### [facility] [address] [place] [address] Dr. Geri Pradhan EPITHELIALS <25 Normal [facility] Comment on above: Performed By: #### R SPLUS #### [facility] [address] [place] [address] Dr. Geri Pradhan FUNGAL ELEMENTS Normal [facility] Comment on above: Performed By: #### R SPLUS #### [facility] [address] [place] [address] Dr. Geri Pradhan GRAM NEG BACILLI Normal [facility] Comment on above: Performed By: #### R SPLUS #### [facility] [address] [place] [address] Dr. Geri Pradhan GRAM NEG DIPPLOCOCCI Normal [facility] Comment on above: Performed By: #### R SPLUS #### [facility] [address] [place] [address] Dr. Geri Pradhan GRAM POS BACILLI Normal [facility] Comment on above: Performed By: #### R SPLUS #### [facility] [address] [place] [address] Dr. Geri Pradhan GRAM POSITIVE COCCI MODERATE Normal [facility] Comment on above: Performed By: #### R SPLUS #### [facility] [address] [place] [address] Dr. Geri Pradhan WBC (Bld) [#/Vol] 10*3/uL Normal [facility] Comment on above: Performed By: #### R SPLUS #### [facility] [address] [place] [address] Dr. Geri Pradhan Covid-19 PCR (CVDTBH)on 11-13 SARS-CoV-2 (COVID-19) RNA KRUNAL+probe Ql (Unsp spec) Detected Critically abnormal NOT DETECTED [facility] Comment on above: Result Comment: This test is not yet approved or cleared by the [place] FDA. When there are no FDA-approved or cleared tests available, and other criteria are met, FDA can make tests available under an emergency access mechanism called an Emergency Use Authorization (EUA). The EUA for this test is supported by the [employer] of Health and Human Service's (HHS's) declaration [...] used). Performed By: #### C VDTBH #### [facility] [address] [address] [address] Geri Pradhan General Surgery Office/Clini c Noteon 03-25-2021 General Surgery Office/Clinic Note Chief Complaint in-office excisional biopsy HPI Staff Presents for in-office excisional biopsy right restorationist and right lower extremity. No change since last evaluation. History of Present Illness here for excision of right restorationist and RLE lesions; no change since recent [...] and draped; anesthetized with 1% lidocaine; right restorationist lesion excised in an elliptical fashion down [...] arrest: Mother, Father and Sister. Normal [facility] Comment on above: Result Comment: Elec tronically Signed By: JIM DAVENPORT, Jose Domínguez\Date and Time Signed: 03/25/21 17:02 EST Ambulatory Clinical Summaryo n 02-12-2021 Ambulatory Clinical Summary {[id number]}CD:[id number] Normal [facility] General Surgery Office/Clini c Noteon 02-12-2021 General Surgery Office/Clinic Note Chief Complaint follow up in-office excisional biopsy HPI Staff 11 day post operative follow up post in-office excisional biopsy right restorationist and right lower extremity. Sutures intact. Denies bleeding or drainage from incision site. History of Present Illness 11 days s/p excisional biopsy changing lesions right restorationist and right lower extremity; doing well, no drainage; restorationist lesion basal cell carcinoma, margins not commented [...] Brother. Cardiac arrest: Mother, Father and Sister. [facility] Comment on above: Result Comment: Elec tronically Signed By: JIM DAVENPORT, Jose Gonzalez.giana\Date and Time Signed: 02/12/21 13:16 EDT Pathology Noteon 02-06-2021 Pathology Note [id number] 0CD:127 Normal [facility] Ambulatory Clinical Summaryo n 01-11-2021 Ambulatory Clinical Summary {[id number]}CD:[id number] [facility] Ambulatory Clinical Summary {[id number]}CD:[id number] [facility] Physician Referralon 021 Physician Referral [id number]:127 [facility] Center [id number] 03-02-2018 Protein mass conc NAME : ELAINE STANLEY D : [id number] : 1960 Gender : FemaleRace : CaucasianORD : [id number] Procedure Date : Mar 02 2018 12:58:22Edit Date : Mar 02 2018 14:15:37 Diagnosis:NORMAL SINUS RHYTHMRIGHT ATRIAL ENLARGEMENTMINIMAL VOLTAGE CRITERIA FOR LVH, MAY BE NORMAL VARIANTBORDERLINE ECGNO PREVIOUS ECGS AVAILABLEConfirmed by CORNELIA ROGERS M.D. ([id number]) on 03/02/2018 2:15:27 PM Ventricular Rate : 86 BPMAtrial Rate : 86 BPMP-R Interval : 178 msQRS Duration : 72 msQ-T Interval : 374 msQTC Calculation(Bezet) : 447 msP [place] : 88 degreesR [place] : 78 degreesT [place] : 79 degrees Test Reason : Location : [facility] Overread By : KEN Maier,VIJAYEdited By : KEN Maier,VIJAYReferred By : DUGLAS FERNANDEZAcquired by : CELESTE GILLESPIE [facility] Vital Signs Date Time Vital Sign Value Performing Clinician Facility 05-17-2023 12:14-0500 Heart rate 120 /min [facility] 05-17-2023 12:14-0500 Respiratory rate 22 /min [facility] 05-17-2023 11:04-0500 Diastolic blood pressure 76 mm[Hg] [facility] 05-17-2023 11:04-0500 Inhaled oxygen flow rate 2 L/min [facility] 05-17-2023 11:04-0500 SaO2% (BldA) [Mass fraction] 97 % [facility] 05-17-2023 11:04-0500 Systolic blood pressure 117 mm[Hg] [facility] 05-17-2023 07:32-0500 Body temperature 97.4 [degF] [facility] 05-17-2023 03:19-0500 Body weight 39.2 kg [facility] 05-14-2023 16:31-0500 Body height 162.56 cm [facility] 05-14-2023 01:40-0500 Diastolic blood pressure 57 mm[Hg] [facility] 05-14-2023 01:40-0500 Heart rate 119 /min [facility] 05-14-2023 01:40-0500 Inhaled oxygen flow rate 2 L/min [facility] 05-14-2023 01:40-0500 Respiratory rate 22 /min [facility] 05-14-2023 01:40-0500 SaO2% (BldA) [Mass fraction] 91 % [facility] 05-14-2023 01:40-0500 Systolic blood pressure 119 mm[Hg] [facility] 05-13-2023 16:49-0500 Body height 162.56 cm [facility] 05-13-2023 16:49-0500 Body temperature 97.9 [degF] [facility] 05-13-2023 16:49-0500 Body weight 40.36 kg [facility] 11-27-2022 10:34-0400 Body temperature 96.01 [degF] Abdi Iqbal MD Work Phone: [facility] 11-27-2022 10:34-0400 Body weight 45.18 kg Abdi Iqbal MD Work Phone: [facility] 11-27-2022 10:34-0400 Diastolic blood pressure 82 mm[Hg] Abdi Iqbal MD Work Phone: [facility] 11-27-2022 10:34-0400 Heart rate 110 /min Abdi Iqbal MD Work Phone: [facility] 11-27-2022 10:34-0400 Respiratory rate 20 /min Abdi Iqbal MD Work Phone: [facility] 11-27-2022 10:34-0400 SaO2% (BldA) [Mass fraction] 89 % Abdi Iqbal MD Work Phone: [facility] 11-27-2022 10:34-0400 Systolic blood pressure 132 mm[Hg] Abdi Iqbal MD Work Phone: [facility] 06-26-2022 15:00-0400 Body height 162.56 cm Jose Conde Other [employer] Other 06-26-2022 15:00-0400 Body mass index (BMI) [Ratio] 18.02 kg/m2 Jose Conde Other [facility] Other 06-26-2022 15:00-0400 Body temperature 97.2 [degF] Jose Elton Other [facility] Other 06-26-2022 15:00-0400 Body weight 47.63 kg Jose Elton Other [facility] Other 06-26-2022 15:00-0400 Diastolic blood pressure 80 mm[Hg] Jose Elton Other [facility] Other 06-26-2022 15:00-0400 Systolic blood pressure 128 mm[Hg] Jose Elton Other [facility] Other 06-02-2022 14:09-0500 Body temperature 97.7 [degF] Abdi Iqbal MD Work Phone: [facility] 06-02-2022 14:09-0500 Body weight 49.35 kg Abdi Iqbal MD Work Phone: [facility] 06-02-2022 14:09-0500 Diastolic blood pressure 78 mm[Hg] Abdi Iqbal MD Work Phone: [facility] 06-02-2022 14:09-0500 Heart rate 116 /min Abdi Iqbal MD Work Phone: [facility] 06-02-2022 14:09-0500 Respiratory rate 18 /min Abdi Iqbal MD Work Phone: [facility] 06-02-2022 14:09-0500 SaO2% (BldA) [Mass fraction] 89 % Abdi Iqbal MD Work Phone: [facility] 06-02-2022 14:09-0500 Systolic blood pressure 125 mm[Hg] Abdi Iqbal MD Work Phone: [facility] 05-22-2022 15:15-0500 Body height 162.56 cm Jose Conde Other [facility] Other 05-22-2022 15:15-0500 Body mass index (BMI) [Ratio] 18.02 kg/m2 oJse Conde Other [facility] Other 05-22-2022 15:15-0500 Body temperature 98.2 [degF] Jose Conde Other [facility] Other 05-22-2022 15:15-0500 Body weight 47.63 kg Jose Conde Other [facility] Other 05-22-2022 15:15-0500 Diastolic blood pressure 78 mm[Hg] Jose Conde Other [facility] Other 05-22-2022 15:15-0500 Systolic blood pressure 130 mm[Hg] [employer] Other [facility] Other 05-09-2022 10:30-0500 Diastolic blood pressure 80 mm[Hg] Yasmin Waggoner MD Work Phone: [facility] 05-09-2022 10:30-0500 Heart rate 99 /min Yasmin Waggoner MD Work Phone: [facility] 05-09-2022 10:30-0500 Respiratory rate 16 /min Yasmin Waggoner MD Work Phone: [facility] 05-09-2022 10:30-0500 SaO2% (BldA) [Mass fraction] 97 % Yasmin Waggoner MD Work Phone: [facility] 05-09-2022 10:30-0500 Systolic blood pressure 134 mm[Hg] Yasmin Waggoner MD Work Phone: [facility] 05-09-2022 10:02-0500 Body temperature 98.2 [degF] Yasmin Waggoner MD Work Phone: [facility] 05-09-2022 07:03-0500 Body height 162.6 cm Yasmin Waggoner MD Work Phone: [facility] 05-09-2022 07:03-0500 Body weight 47.63 kg Yasmin Waggoner MD Work Phone: [facility] 03-14-2022 11:22-0500 Body temperature 97.81 [degF] Abdi Iqbal MD Work Phone: [facility] 03-14-2022 11:22-0500 Body weight 49.9 kg Abdi Iqbal MD Work Phone: [facility] 03-14-2022 11:22-0500 Heart rate 101 /min Abdi Iqbal MD Work Phone: [facility] 03-14-2022 11:22-0500 Respiratory rate 16 /min Abdi Iqbal MD Work Phone: [facility] 03-14-2022 11:22-0500 SaO2% (BldA) [Mass fraction] 96 % Abdi Iqbal MD Work Phone: [facility] 06-06-2021 10:01-0500 Body temperature 97.7 [degF] Abdi Iqbal MD Work Phone: [facility] 06-06-2021 10:01-0500 Body weight 51.71 kg Abdi Iqbal MD Work Phone: [facility] 06-06-2021 10:01-0500 Diastolic blood pressure 67 mm[Hg] Abdi Iqbal MD Work Phone: [facility] 06-06-2021 10:01-0500 Heart rate 97 /min Abdi Iqbal MD Work Phone: [facility] 06-06-2021 10:01-0500 Respiratory rate 20 /min Abdi Iqbal MD Work Phone: [facility] 06-06-2021 10:01-0500 SaO2% (BldA) [Mass fraction] 93 % Abdi Iqbal MD Work Phone: [facility] 06-06-2021 10:01-0500 Systolic blood pressure 120 mm[Hg] Abdi Iqbal MD Work Phone: [facility] Encounters Encounter Date Encounter Type Care Provider Facility Start: 05-25-2023 End: 05-25-2023 ambulatory ABDI IQBAL Facility:[facility] Start: 05-20-2023 Telephone encounter Abdi Iqbal MD Work Phone: Radiation Oncology Comment on above: Patient Update; Futu re Appointment Start: 05-14-2023 End: 05-17-2023 Evaluation and management of inpatient Ally Warner Facility:[facility] Start: 05-14-2023 Non-patient / Non-visit [facility] Work Phone: Start: 04-09-2023 End: 04-09-2023 ambulatory ANA DRIVER Not Available Start: 11-27-2022 End: 11-28-2022 ambulatory ABDI IQBAL Facility:[facility] Start: 11-27-2022 End: 11-28-2022 Patient encounter procedure Abdi Iqbal MD Work Phone: Radiation Oncology Comment on above: Neoplasm of lung (Pr imary Dx) Start: 11-18-2022 Telephone encounter Ced Rojas Hematology/Oncology Comment on above: Appointment Start: 09-02-2022 End: 09-05-2022 Evaluation and management of inpatient DR ADITHYA BASS . Facility: Start: 06-26-2022 End: 06-26-2022 ambulatory Jose Conde Other [facility] Other Start: 06-26-2022 Office outpatient vi sit 25 minutes Jose Conde [facility] Start: 06-10-2022 End: 06-10-2022 ambulatory Jose Conde Other [facility] Other Start: 06-10-2022 Telephone encounter Jose Conde [facility] Start: 06-02-2022 End: 06-02-2022 ambulatory ABDI IQBAL Facility:[facility] Start: 06-02-2022 End: 06-02-2022 Patient encounter procedure Abid Iqbal MD Work Phone: Radiation Oncology Comment on above: Non-small cell cance r of left lung (HCC) (Primary Dx) Start: 05-23-2022 End: 05-23-[address] JOSE CONDE Facility:[facility] Start: 05-22-2022 End: 05-23-[address] JOSE CONDE [facility] Other Start: 05-22-2022 Office outpatient ne w 45 minutes Jose LORENZANA Infectious Disease Start: 05-14-2022 Telephone encounter Abdi Iqbal MD Work Phone: Radiation Oncology Comment on above: Appointment Start: 05-09-2022 End: 05-09-2022 Subsequent hospital visit by physician Yasmin Waggoner MD Work Phone: Admitting Comment on above: Bronchiolar disease [J98.09] Start: 05-08-2022 Encounter for preprocedural laboratory examination DR DOCTOR DAS [facility] Start: 05-06-2022 End: 05-06-[address] DOCTOR DAS Facility:[facility]1 Start: 05-06-2022 End: 05-06-2022 Encounter for preprocedural laboratory examination DR DOCTOR DAS Facility:[facility] Start: 04-28-2022 End: 04-28-2022 ambulatory Vitor Farias MD Work Phone: Pulmonology Comment on above: Non-small cell cance r of left lung (HCC) (Primary Dx); Lung mass; Centrilobular emphysema (HCC) Start: 04-28-2022 End: 04-28-2022 Telemedicine consultation with patient Vitor Farias MD Work Phone: [facility] Start: 04-24-2022 Telephone encounter [address]ina Hassan CT Pulmonary Medicine Comment on above: Appointment (PreOp Heath carranza) Start: 04-23-2022 Orders Only Alicja Reece APRN.STERILE INSTRUMENT TECHNICIAN Work Phone: Admitting Comment on above: Preoperative examina tion (Primary Dx) Appointment Start: 04-23-2022 Preprocedural examin ation done Alicja Reece DYE TUB TENDER.STERILE INSTRUMENT TECHNICIAN Work Phone: Admitting Start: 04-22-2022 ambulatory Vitor cagle MD Work Phone: Pulmonary Medicine Start: 04-22-2022 Telephone encounter Abdi Iqbal MD Work Phone: Radiation Oncology Comment on above: Patient Update; Appo intment Start: 04-08-2022 End: 04-08-[address] ADITHYA BASS . Facility:[facility] Start: 03-14-2022 End: 03-14-2022 Patient encounter procedure Abdi Iqbal MD Work Phone: Radiation Oncology Comment on above: Non-small cell cance r of left lung (HCC) (Primary Dx) Start: 02-20-2022 Telephone encounter Abdi Iqbal MD Work Phone: Radiation Oncology Comment on above: Orders Start: 02-15-2022 End: 02-16-[address] ADITHYA BASS . Facility:[facility] Start: 02-11-2022 End: 02-11-[address] ADITHYA BASS . Facility:[facility] Start: 12-11-2021 End: 12-11-[address] ADITHYA BASS . Facility:[facility] Start: 10-17-[address] ADITHYA BASS . Facili ty:[facility]1 Start: 06-06-2021 End: 06-06-2021 Patient encounter procedure Abdi Iqbal MD Work Phone: Radiation Oncology Comment on above: Non-small cell cance r of left lung (HCC) (Primary Dx); Neoplasm of lung Start: 03-02-2018 Patient encounter procedure [facility] Start: 03-24-2017 Ambulatory JAYE HOUGH Facil [id number] Start: 03-24-2017 Ambulatory Adithya Bass Fac ility:[id number] Procedures Date Procedure Procedure Detail Performing Clinician Start: 05-09-2022 [facility] incl fluor g dnce dx w/cell washg spx Abdi Iqbal MD Work Phone: Start: 06-06-2021 Adult depression screening assessment Abdi Iqbal MD Work Phone: Plan of Treatment Date Care Activity Detail Author Start: 04-24-2025 DIABETES SCREEN DIABETES SCREEN [facility] Start: 04-24-2025 Diabetes Screening Diabetes Screenin g [facility] Start: 05-17-2023 [facility] Start: 05-14-2023 Administration of prophylactic treatment [facility] Start: 05-14-2023 End: 05-14-2023 [facility] Start: 05-14-2023 Hospital admission [facility] Start: 05-14-2023 Microbial culture of sputum [facility] Start: 05-13-2023 CT Chest [facility] Start: 05-13-2023 End: 07-13-2023 CREATININE BLD CREATININE BLD Lab Routine Neoplasm of lung Expected: 05/13/2023 (Approximate), Expires: 07/13/2023 [facility] Work Phone: Comment on above: Expected: 05/13/2023 (Approximate), Expires: 07/13/2023 Start: 05-13-2023 End: 12-27-2023 CT CHEST W IVCON CT CHEST W IVCON Radiology Routine Neoplasm of lung Expected: 05/13/2023 (Approximate), Expires: 12/27/2023 [facility] Work Phone: Comment on above: Expected: 05/13/2023 (Approximate), Expires: 12/27/2023 Start: 04-13-2023 Depression Assessment Depression Ass essment [facility] Start: 12-12-2022 Influenza vaccination C [facility] Start: 06-06-2022 Adult depression screening assessment DEPRESSION SCREENING [facility] Start: 06-06-2022 End: 06-06-2022 CREATININE BLD CREATININE BLD Lab Routine Non-small cell cancer of left lung (HCC) Expected: 06/06/2022, Expires: 06/06/2022 [facility] Work Phone: Comment on above: Expected: 06/06/2022 , Expires: 06/06/2022 Start: 06-06-2022 End: 07-06-2022 Ct thorax w/contrast material CT CHEST W IVCON Radiology Routine Non-small cell cancer of left lung (HCC) Neoplasm of lung Expected: 06/06/2022, Expires: 07/06/2022 [facility] Work Phone: Comment on above: Expected: 06/06/2022 , Expires: 07/06/2022 Start: 04-24-2022 End: 06-24-2022 SARS-CoV-2 (COVID-19) RNA [Presence] in Respiratory specimen by KRUNAL with probe detection INTERMEDIATE RAPID COVID Microbiology Routine Preoperative examination Expected: 04/24/2022, Expires: 06/24/2022 [facility] Work Phone: Comment on above: Expected: 04/24/2022 , Expires: 06/24/2022 Start: 04-22-2022 End: 06-22-2022 Basic metabolic 2000 panel - Serum or Plasma BASIC METABOLIC PNL Lab STAT Lung mass Expected: 04/22/2022, Expires: 06/22/2022 [facility] Work Phone: Comment on above: Expected: 04/22/2022 , Expires: 06/22/2022 Start: 04-22-2022 End: 06-22-2022 CBC W Auto Differential panel - Blood CBC + DIFF Lab STAT Lung mass Expected: 04/22/2022, Expires: 06/22/2022 [facility] Work Phone: Comment on above: Expected: 04/22/2022 , Expires: 06/22/2022 Start: 04-13-2022 DEPRESSION ASSESSMENT DEPRESSION ASS ESSMENT [facility] Start: 12-12-2021 Influenza vaccination INFLUENZA (#1) [facility] Start: 2021 RSV Vaccine (1 - 1-d ose 60+ series) RSV Vaccine (1 - 1-dose 60+ series) [facility] Start: 04-13-2021 DEPRESSION ASSESSMENT DEPRESSION ASS ESSMENT [facility] Start: 03-02-2021 DIABETES SCREEN DIABETES SCREEN [facility] Start: 08-26-2011 SHINGRIX VACCINE (1 of 2) SHINGRIX VACCINE (1 of 2) [facility] Start: 2006 COLOGUARD (FIT-DNA) COLOGUARD (FIT-D NA) [facility] Start: 2006 Colonoscopy COLONOSCOPY [facility] Start: 2006 COLORECTAL CANCER SCREENING COLORECTAL CANCER SCREENING [facility] Start: [address] COLONOGRAPHY [facility] Start: 2006 FECAL OCCULT BLOOD FECAL OCCULT BLOO D [facility] Start: 2006 Lipid panel Lipid Screening [facility] Start: 2006 LIPID SCREEN LIPID SCREEN [facility] Start: 2006 Screening for malign ant neoplasm of colon [facility] Start: 2006 SIGMOIDOSCOPY SIGMOIDOSCOPY [facility] Start: 2001 Mammography MAMMOGRAM [facility] Start: 2001 Screening for malign ant neoplasm of breast Mammogram Screening [facility] Start: 08-26-1991 HPV TESTING HPV TESTING [facility] Start: 08-26-1991 Screening for malign ant neoplasm of cervix HPV Testing [facility] Start: 08-26-1991 Zoledronic acid therapy ALPHA- 1 ANTITRYPSIN DEFICIENCY SCREENING [facility] Start: 1982 PAP TESTING PAP TESTING [facility] Start: 1982 Screening for malign ant neoplasm of cervix Pap Testing [facility] Start: 1980 Urine microalbumin profile [facility] Start: 08-26-1979 ANNUAL PCP TEAM NAVY FIGHTER PILOT PREETHI DISEASE VISIT ANNUAL PCP TEAM CHRONIC DISEASE VISIT [facility] Start: 08-26-1979 HEPATITIS C SCREENING HEPATITIS C [facility] Start: 08-26-1979 Hepatitis C screening Hepatitis C [facility] Start: 08-26-1979 HIV SCREENING HIV SCREENING [facility] Start: 08-26-1979 HIV screening HIV Screening [facility] Start: 08-26-1979 SPIROMETRY SPIROMETRY [facility] Start: 08-26-1967 PNEUMOCOCCAL (1 - PCV) PNEUMOCOCCAL (1 - PCV) [facility] Start: 08-26-1967 Pneumococcal vaccination Pneum ococcal Vaccine (1 of 2 - PCV) [facility] Start: 1966 COVID-19 VACCINE (1) COVID-19 VACCIN E (1) [facility] Start: 02-25-1962 COVID-19 VACCINE (#1) COVID-19 VACCI NE (#1) [facility] End: 05-22-2023 Ct thorax w/o contrast material CT CHEST WO IVCON Radiology Routine Lung mass 1 Occurrences starting 04/22/2022 until 05/22/2023 [facility] Work Phone: Comment on above: 1 Occurrences starti ng 04/22/2022 until 05/22/2023 CYTOLOGY NON-FITTING ROOM ATTENDANT [facility] Work Phone: Comment on above: Release Upon Orderin g for 1 Occurrences starting 05/09/2022, 1 completed End: 04-22-2023 ECG COMPLETE ECG COMPLETE ECG STAT Lung mass 1 Occurrences starting 04/22/2022 until 04/22/2023 [facility] Work Phone: Comment on above: 1 Occurrences starti ng 04/22/2022 until 04/22/2023 Patient Education Chronic Obstru ctive Pulmonary Disease (COPD) (DC) Levofloxacin (Systemic) Pneumonia, Adult (DC) [facility] Work Phone: Patient referral [facility] Work Phone: End: 03-22-[address] attenuation skull base mid-thigh NM PET/CT SKULL-THIGH INITIAL Radiology Routine Neoplasm of lung 1 Occurrences starting 02/21/2022 until 03/22/2023 [facility] Work Phone: Comment on above: 1 Occurrences starti ng 02/21/2022 until 03/22/2023 SARS-CoV-2 (COVID-19 ) RNA [Presence] in Respiratory specimen by KRUNAL with probe detection SELF CHECK COVID Microbiology Routine Lung mass Ordered: 04/22/2022 [facility] Work Phone: Comment on above: Ordered: 04/22/2022 SURGICAL PATHOLOGY [facility] Work Phone: Comment on above: Release Upon Kurt nicole for 1 Occurrences starting 05/09/2022, 1 completed [facility] Immunizations Immunization Date Immunization Notes Care Provider Fa cili 03-04-2022 influenza, injectabl e, quadrivalent, preservative free Vitor Farias MD Work Phone: [facility] 03-04-2022 influenza virus vacc ine, unspecified formulation Abdi Iqbal MD Work Phone: [facility] 03-19-2021 influenza, injectabl e, quadrivalent, preservative free Vitor Farias MD Work Phone: [facility] 02-22-2021 influenza virus vacc ine, unspecified formulation Vitor Farias MD Work Phone: [facility] 03-02-2020 Influenza, injectabl e, Madin [place] Canine Kidney, preservative free, quadrivalent Vitor Farias MD Work Phone: [facility] 02-02-2019 Influenza, injectabl e, Madin [place] Canine Kidney, preservative free, quadrivalent Vitor Farias MD Work Phone: [facility] 03-02-2018 influenza, injectabl e, quadrivalent, contains preservative Abdi Iqbal MD Work Phone: [facility] Payers Date Payer Category Payer Self-pay [id number] 2018 Medicaid [employer] [id number] 2018-Present [phone] [address] [place] [address] Medicaid [id number] 2018 Medicaid [id number] 1961 Unknown [id number] 1961 Unknown [id number] 1961 Unknown [id number] 1961 Unknown [id number] 1961 Unknown [id number] 1961 Unknown [id number] 1961 Unknown [id number] 1961 Unknown [id number] 1961 Unknown [id number] 1961 Unknown [id number] 1959 Self-pay [id number] 1959 Unknown [id number] 1959 Unknown [id number] Unknown [id number] Social History Date Type Detail Facility Start: 03-02-2018 End: 03-14-2022 Tobacco smoking status NHIS Ex-smoker [facility] End: 04-13-2012 History of tobacco use Current smoker [facility] Start: 03-02-2018 End: 11-27-2022 Cigarettes smoked current (pack per day) - Reported 1.5 [facility] Start: 03-02-2018 End: 03-14-2022 Tobacco use and exposure Smokeless tobacco non-user [facility] Start: 06-06-2021 End: 03-14-2022 Alcohol intake Current drinker of alcohol (finding) [facility] Start: 1960 Sex Assigned At Not on file [facility] Start: 05-07-2021 End: 03-14-2022 Exposure to SARS-CoV-2 (event) Not sure [facility] End: 04-13-2012 History of tobacco use Cigarette Smoker [facility] Work Phone: Start: 03-14-2022 End: 11-27-2022 Sex Assigned At [facility] Adult Depression Screening Assessment 0 [facility] Start: 1960 Sex Assigned At Female F [facility] Clinical Notes 05-14-2011 to 05-20-2023 Telephone Encounter - Elidia Rinaldi - 05/20/2023 9:59 AM ESTTelephone Encounter - Silvia Lomax RN - 05/20/2023 9:51 AM Abdi Mayorga MD - 11/27/2022 10:30 AM EDT Note Date & Type Note Facility 05-20-2023 Miscellaneous Notes Patient is called and scheduled for next week Pt called in and was admitted to [facility] last week. They did CT Chest. She has been waiting on insurance approval for a chest CT and will not need one now. She would like follow up arranged. Reports printed from [facility] and images requested. PSS- please call pt and arrange follow up with Dr Iqbal for next week. Thank you Silvia Lomax RN documented in this encounter [facility] 11-27-2022 Note HNO ID: [id number] Author: Abdi Iqbal MD Service: ? Author Type: Physician Type: Progress Notes Filed: 12/09/2022 9:33 PM Note Text: Radiation Oncology - Follow Up Note PATIENT NAME: CINTHIA Stanley PATIENT DIAGNOSIS/PATIENT IDENTIFICATION: Ms. Stanley is a 62-year-old woman with severe COPD, who is diagnosed with Stage IA3, [id number], non-small cell lung cancer arising from a [...] cGy in 5 fractions). INTERVAL HISTORY/ROS: Ms. 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 Driver and using her nebulizers. She [...] CT Chest (09/24/2022) ASSESSMENT AND PLAN: Ms. Stanley is a 62-year-old woman with severe COPD, who is diagnosed with Stage IA3, [id number], non-small cell lung cancer arising from a [...] 05/14/2018 (5000 cGy in 5 fractions). Ms. Stanley is doing well clinically from a radiation [...] the chest. She will follow with her freight car loader Dr. Driver to optimize her respiratory function and I will plan to see her back in approximately [address] of the chest. The patient is aware to contact the clinic in the interim should any questions or concerns arise. Thank you for allowing us to participate in the care of this patient. Signed by: Abdi Iqbal MD I spent a total of 20 minutes on the date of the service which included preparing to see the patient, [id number] patient care, and counseling and educating the patient/family/caregiver. This document has been created with the use of voice recognition technology. It may contain inaccuracies, missp (more content not included)... [facility] 11-27-2022 History of Presen t illness Narrative Images from the original note were not included. Radiation Oncology - Follow Up Note PATIENT NAME: CINTHIA Stanley PATIENT DIAGNOSIS/PATIENT IDENTIFICATION: Ms. Stanley is a 62-year-old woman with severe COPD, who is diagnosed with Stage IA3, [id number], non-small cell lung cancer arising from a [...] cGy in 5 fractions). INTERVAL HISTORY/ROS: Ms. 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 Driver and using her nebulizers. She [...] CT Chest (09/24/2022) ASSESSMENT AND PLAN: Ms. Stanley is a 62-year-old woman with severe COPD, who is diagnosed with Stage IA3, [id number], non-small cell lung cancer arising from a [...] 05/14/2018 (5000 cGy in 5 fractions). Ms. Stanley is doing well clinically from a radiation [...] the chest. She will follow with her freight car loader Dr. Driver to optimize her respiratory function and I will plan to see her back in approximately [address] of the chest. The patient is aware to contact the clinic in the interim should any questions or concerns arise. Thank you for allowing us to participate in the care of this patient. Signed by: Abdi Iqbal MD I spent a total of 20 minutes on the date of the service which included preparing to see the patient, [id number] patient care, and counseling and educating the patient/family/caregiver. This document has been created with the use of voice recognition technology. It may contain inaccuracies, misspellings, inaccurate syntax or inappropriate word context that are a result of the inadequacies/shortcomings of said technology/software. documented in this encounter [facility] 11-18-2022 Miscellaneous Notes FYI--Dr. Driver's progress note is available in Care Everywhere. Dr. Bass's office note to be faxed over per his office. Anita Pressley LPN Pt notified, CT canceled. Katerina working on records from Dr Bass and Dr Driver. Images/report being pushed from [facility]. Ced Victoria RN Yes, please cancel CT tomorrow. In addition to the images, please request any office notes from Dr. Bass as well as her freight car loader. Thanks! Abdi Pt called for CT 11/19/22. She reports CT completed 09/24/22 at [facility]. CT chest verified and will send images/report. LORENZO: Would you like to cancel CT? Please advise Ced Victoria RN documented in this encounter [facility] 06-26-2022 Evaluation note Encounter Date Diagnosis Assessment Notes Jun, Abnormality present on gross pathology (ICD-10 - R89.7) Patient has chronic respiratory problems systemic symptoms of infection as well as change in her cough has not occurred. She also does not cough up significant sputum. Though the morphologic abnormality of fungal like structures was seen on her bronc no cultures were sent. I wanted to [...] History of lung cancer (ICD-10 - Z85.118) [facility] Other 02-21-2023 NoteHNO ID: [id number] Author: Abdi Iqbal MD Service: ? Author Type: Physician Type: Progress Notes Filed: 06/15/2022 8:09 PM Note Text: Radiation Oncology - Follow Up Note PATIENT NAME: CINTHIA Stanley PATIENT DIAGNOSIS/PATIENT IDENTIFICATION: Ms. Stanley is a 61-year-old woman with severe COPD, who is diagnosed with Stage IA3, [id number], non-small cell lung cancer arising from a [...] cGy in 5 fractions). INTERVAL HISTORY/ROS: Ms. Stanley returns to clinic today for routine follow-up [...] Aspergillus. These results were discussed with her freight car loader Dr. Cross and the patient was referred [...] oxygen via nasal cannula at 2 L [id number]. She notes that her cough is improved [...] neoplasm is present. ASSESSMENT AND PLAN: Ms. Stanley is a 61-year-old woman with severe COPD, who is diagnosed with Stage IA3, [id number], non-small cell lung cancer arising from a [...] 05/14/2018 (5000 cGy in 5 fractions). Ms. Stanley is doing well clinically approximately 4 years out from completion of her SBRT treatments to the left chest with stable pulmonary function. Her recent radiologic findings on CT and PET were followed up by bronchoscopy/EBUS on 05/09/2022 with pathology being negative for malignancy but show (more content not included)...[facility] 06-02-2022 History of Present illness Narrative* Abdi Iqbal MD - 06/02/2022 11:53 PM EST Radiation Oncology - Follow Up Note PATIENT NAME: CINTHIA Stanley PATIENT Signed by: Abdi Iqbal MD I spent a total of 20 minutes on the date of the service which included preparing to see the patient, [id number] patient care, and counseling and educating the patient/family/caregiver. This document has been created with the use of voice recognition technology. It may contain inaccuracies, misspellings, inaccurate syntax or inappropriate word context that are a result of the inadequacies/shortcomings of said technology/software. [facility]* Encounter Date Diagnosis Assessment [...] History of lung cancer (ICD-10 - Z85.118) [facility] Other 02-01-2023 Miscellaneous Notes* Telephone Encounter - Abdi Iqbal MD - 05/14/2022 10:40 PM EST Thanks! Abdi * Telephone Encounter - Kendal Lomax [facility] - 05/14/2022 1:59 PM EST Records faxed to Dr. Conde. Requested images be pushed to [facility]. * Telephone Encounter - Telma Pak - 05/14/2022 1:26 PM EST Patient has been scheduled with Dr. Conde on 05/22/21. Patient has been called & made aware of appointment. Emily: Please send specified documents to Dr. Conde. Fax cover sheet in your mailbox. Thanks, Telma Pak * Telephone Encounter - Abdi Iqbal MD - 05/14/2022 12:06 PM EST Discussed pathology results from bronch/EBUS with the patient yesterday showing fungal/aspergillus infection. Spoke with her freight car loader, Dr. Cross, today and agreed to refer to Dr. Conde for ID consult and management of pulmonary infection. Please send last years worth of notes and CT images in addition to pathology results. Thanks! Abdi * Telephone Encounter - Anita Pressley LPN - 05/14/2022 11:56 AM EST Telma: Will you please refer Omaira to Dr. Conde for consult aleks dx: Fungal hyphae present, morphologically consistent with Aspergillus species (see comment. Dr. Iqbal--please sign pended consult order. I left two messages for Omaira to call the office so we can notify her that we are arranging this appt. Thanks Anita Pressley LPN [facility] History of Present illness Narrative* Interface Note - 05/09/2022 8:00 PM EST Epic Scheduled Downtime: 05/10/2022 1:00:00 AM to 05/10/2022 3:56:00 AM [facility] Nurse Note* Luz Maria Blanca RN [...] Luz Maria Blanca RN [facility]23 NoteHNO ID: [id number] Author: Vitor Farias MD Service: ? Author Type: Physician Type: Progress Notes Filed: 04/28/2022 4:35 PM Note Text: VIRTUAL VISIT PROGRESS NOTE This is a virtual visit using [employer] video visit. It required patient-provider interaction for the medical decision making as documented below. Omaira Stanley is a 61 year old female who [...] eating well. COPD managed locally by a freight car loader. HISTORY REVIEWED (electronic chart updated): PAST MEDICAL [...] Emphysema. Controlled and stable; managed by local freight car loader. I spent a total of 60 minutes on the date of the service which included preparing to see the patient, [id number]-[id number] patient care, completing clinical documentation, obtaining and/or reviewing separately obta (more content not included)...[id number] of Present illness Narrative* Vitor Farias MD - 04/28/2022 3:03 PM EST VIRTUAL VISIT PROGRESS NOTE This is a virtual visit using [employer] video visit. It required patient-provider interaction for themedical decision making as documented below. Omaira Stanley is a 61 year old female who [...] eating well. COPD managed locally by a freight car loader. HISTORY REVIEWED (electronic chart updated): PAST MEDICAL [...] Emphysema. Controlled and stable; managed by local freight car loader. I spent a total of 60 minutes on the date of the service which included preparing to see the patient, uhgt-dq-lclu patient care, completing clinical documentation, obtaining and/or reviewing separately obtained history, performing a medically appropriate examination, counseling and educating the pat ient/family/caregiver, ordering medications, tests, or procedures, communicating with other HCPs (not separately reported), independently interpreting results (not separately reported), communicatingresults to the patient/family/caregiver, and care coordination (not separately reported) Vitor Farias MD April 28, 2022 documented in this encounter[facility]23 Miscellaneous Notes* Telephone Encounter - Telma Pak - 04/23/2022 9:58 AM EST Patient has been scheduled for both & confirmed appt day & time. Telma Pak * Telephone Encounter - Telma Pak - 04/23/2022 9:10 AM EST Called patient to schedule her for EKG & labs per e-mail. No answer, LMOV requesting a returnedphone call. Telma Pak documented in this encounterBu[facility]01-10-2023 History of Present illness Narrative* Vitor [...] to get labs/EKG/COVID swab done at [facility] Cancer Does the pt need cardiac clearance?: No Is she on anticoagulants/anti-plt therapy?: No Nursing Considerations: (ie: care home, TB, respiratory isolation, clinical trial, Specific protocol etc.) none Additional notes to the casting wheel operator helper: Treated SELENE cancer, now with enlarging mass that is PET avid thatdoesn't seem part of the prior radiation field. Please try to access the PET avid area if possible. Consultation request/referral by: Abdi Iqbal MD ([facility]) Reviewed by: PHANI Farias MD April 22, 2022 3:49 PM Addendum: CBC with diff: WBC 6.81 03/02/2018 RBC 4.94 03/02/2018 Hemoglobin 14.7 03/02/2018 Hematocrit 44.5 03/02/2018 MCV 90.1 03/02/2018 MCH 29.8 03/02/2018 MCHC 33.0 03/02/2018 RDW-CV 12.4 03/02/2018 Platelet Count 234 03/02/2018 MPV 10.3 03/02/2018 Neut% 64.3 03/02/2018 Lymph% 25.3 03/02/2018 [place]% 9.1 03/02/2018 Eosin% 0.7 03/02/2018 Baso% 0.6 03/02/2018 Abs Neut (ANC) 4.36 03/02/2018 Abs [place] 0.62 03/02/2018 Abs Eosin 0.05 03/02/2018 Abs [...] - 0.96 mg/dL Final documented in this encounterBucyrus [facility]01-10-2023 Miscellaneous Notes* Telephone Encounter - Anita Pressley LPN - 04/22/2022 9:37 AM EST I called to notify Omaira that Dr. Farias's office will be calling her to schedule bronchoscopy. Shestates she recently had the flu and her breathing was terrible at that time. She said her symptoms are improving now that she is over the flu. She denies questions at this time. Anita Pressley LPN documented in this encounterBucyrus [facility] Hospital12-02-2022 History of Present illness Narrative* Abdi Iqbal MD - 03/14/2022 11:44 PM EST Radiation Oncology - Follow Up Note PATIENT NAME: Omaira Stanley PATIENT Signed by: Abdi Iqbal MD I spent a total of 20 minutes on the date of the service which included preparing to see the patient, [id number] patient care, and counseling and educating the patient/family/caregiver. This document has been created with the use of voice recognition technology. It may contain inaccuracies, misspellings, inaccurate syntax or inappropriate word context that are a result of the inadequacies/shortcomings of said technology/software. documented in this encounterBucyrus [facility] Hospital11-11-2022 Miscellaneous Notes* Telephone Encounter - Telma Pak - 02/21/2022 11:41 AM EST Patient has been scheduled and notified of appointment. Telma Pak * Telephone Encounter - Telma Pak - 02/20/2022 2:12 PM EST I will have to work with Shruthi Martinez To find next available PET. Also, patient insurance will take at least 2 weeks. Telma Pak * Telephone Encounter - Anita Pressley LPN - 02/20/2022 2:05 PM EST PET scan order pending your approval. Telma: Please schedule PET scan as indicated below. Anita Pressley LPN Spoke with Dr. Cross and reviewed recent scan ... please set up Omaira Lang for PET/CT as soon as possible then follow-up to review documented in this encounterBucyrus [facility] Hospital11-10-2022 Miscellaneous Notes* Telephone Encounter - Anita Pressley LPN - 02/20/2022 1:[address] Iqbal please sign pended PET scan order that you requested for Judy. Hollis: Please schedule PET as indicated below. Thanks Anita Pressley LPN Spoke with Dr. Cross and reviewed recent scan ... please set up Omaira Lang for PET/CT as soon as possible then follow-up to review documented in this encounterBucyrus [facility] Hospital02-24-2022 History of Present illness Narrative* Abdi Iqbal MD - 06/06/2021 4:50 PM EST Radiation Oncology - Follow Up Note PATIENT NAME: Omaira Stanley PATIENT DIAGNOSIS/PATIENT IDENTIFICATION: Ms. Stanley is a 60-year-old woman with severe COPD, who is diagnosed with Stage IA3, [id number], non-small cell lung cancer arising from a [...] cGy in 5 fractions). INTERVAL HISTORY/ROS: Ms. Stanley returns to clinic today for routine follow-up [...] adenopathy is identified. ASSESSMENT AND PLAN: Ms. Stanley is a 60-year-old woman with severe COPD, who is diagnosed with Stage IA3, [id number], non-small cell lung cancer arising from a [...] 05/14/2018 (5000 cGy in 5 fractions). Ms. Stanley is doing well clinically approximately 3 years [...] care of this patient. Signed by: Abdi Iqbal MD I spent a total of 20 minutes on the date of the service which included preparing to see the patient, [id number] patient care and counseling and educating the patient/family/caregiver. This document has been created with the use of voice recognition technology. It may contain inaccuracies, misspellings, inaccurate syntax or inappropriate word context that are a result of the inadequacies/shortcomings of said technology/software. documented in this encounterBucyrus Community Hospital10-01-2021 NoteChief Complaint consultation for nevus HPI Staff 60 year old female presents on consultation from Dr. Bass for right lower leg fresh colored skin lesion. Present for 4 months. Scabbed area from recent trama. Denies itching. Also notes dark pigmentedlesion to right restorationist. Present 4 months. Does not bleed or itch. History of Present Illness 60 yo female with h/o COPD, previous lung cancer, on oxygen; referred for changing skin lesions; right lower extremity lesion enlarging; recently scratched so scabbed over; no bleeding; right restorationist lesion with small scab, no pain or [...] nodes, cyanosis, clubbing. Skin: no rashes right restorationist with 4 mm raised, erythematous lesion with [...] Brother. Cardiac arrest: Mother, Father and Sister.[facility] HospitalComment on above:Result Comment: Electronically Signed By: JIM DAVENPORT, Jose Gonzalez.br\Date and Time Signed: 01/11/21 11:20 [id number] History general Narrative - Reported* Type Description Date Medical History COPD Surgical History appendectomy Surgical History csection Hospitalization History PNA at [facility] 05/2011 [facility] Other Evaluation note* Diagnosis Non-small cell cancer of left lung (HCC)- Primary Neoplasm of lung Neoplasm of unspecified nature of respiratory system [facility]* Diagnosis Neoplasm of lung- Primary Neoplasm of unspecified nature of respiratory system documented [facility]* Diagnosis Non-small cell cancer of left lung (HCC)- Primary documented in this encounter [facility]* Diagnosis Lung mass- Primary Swelling, mass, or lump in chest documented in this encounter [facility]* Diagnosis Preoperative examination- Primary Preoperative examination, unspecified Bronchiolar disease Other diseases of trachea and bronchus documented in this encounter [facility]* Diagnosis Non-small cell cancer of left lung (HCC)- Primary Lung mass Swelling, mass, or lump in chest Centrilobular emphysema (HCC) Other emphysema Bronchiolar disease Other diseases of trachea and bronchus documented in this encounter [facility]* Diagnosis Bronchiolar disease Other diseases of trachea and bronchus Lung nodule Solitary pulmonary nodule documented in this encounter [facility]* Diagnosis Aspergillus pneumonia (HCC)- Primary Aspergillosis Non-small cell cancer of left lung (HCC) documented in this encounter [facility]* Diagnosis Non-small cell cancer of left lung (HCC)- Primary documented in this encounter [facility] noteNo [employer] Other evaluation note* Diagnosis Neoplasm of lung- Primary Neoplasm of unspecified nature of respiratory system documented in this encounter [facility]* Diagnosis Onset Date Resolution Status Chronic respiratory failure with hypoxia acute COPD exacerbation acute Exertional shortness of breath acute Pneumonia acute Pulmonary cachexia due to COPD acute Tachycardia acute [facility] Work Phone: evaluation note* Diagnosis Onset Date Resolution Status Acute hypoxic respiratory failure acute Cachexia acute Chronic respiratory failure with hypoxia acute COPD exacerbation acute Exertional shortness of breath acute Pneumonia acute Pulmonary cachexia due to COPD acute Tachycardia acute [facility] Work Phone: Hospital Discharge instructions Additional Instructions I may not have addressed or treated all of your medical illnesses or the abnormal blood work or imaging studies during this hospitalization. Please ask your primary care provider to obtain [facility] records entirely to follow up on all of the abnormal physical, laboratory, and imaging findings that I have not addressed. Please return back to the emergency room or seek medical attention if your symptoms worsen or return. You asked me to give you the name of the lung specialist who is affiliated with [facility]. Please follow-up with Dr. Rasmussen regarding COPD, lung nodule and pulmonary care. Until you get your first appointment with Dr. Rasmussen, continue to follow-up with Dr. Driver guarding your lung nodule and COPD You would need to have follow-up on lung nodule that is seen before Discharging you from [facility] does not mean that your medical care ends here and now. You may still need additional monitoring, work up, investigation, and treatment plan to be handled from this point on by out patient providers including your primary care provider and specialists. I would recommend that you start taking protein oral supplementation such as Ensure or boost to give you energy and boost your nutritional status For any medication question, please contact your retail pharmacist or your primary care provider. Thank you. Continue home oxygen per chronic orders.[facility] Work Phone: Reason for referral (narrative)* Diagnostic Procedure Only (Routine) - Additional Clinical Info Needed Specialty Diagnoses / Procedures Referred By Dwayne t Referred To Contact MOLECULAR & FUNCTIONAL IMAGING Diagnoses Neoplasm of lung Procedures NM PET/CT SKULL-THIGH INITIAL PET IMAGING CT ATTENUATION SKULL BASE MID-THIGH Abdi Iqbal MD [address] [place] [address] [place] [address] Molecular & Functional Imaging [address] [place] [address] Referral ID Status Reason Start Date Expiration Date Visits Requested Visits Authorized [id number] Additional Clinical Info Needed Auto-Generat ed Referral 2 03/22/2023 1 1 [facility] Summary Purpose Family History No Family History Records FoundNo Family History Records FoundNo Family History Records FoundNo Family History Records FoundNo Family History Records FoundNo Family History Records FoundNo Family History Records FoundNo Family History Records FoundNo Family History Records Found Advance Directives No Advanced Directives Records FoundDocuments on File Type Date Recorded Patient [employer] Expl anation Advance Directive(s) Advance Directive(s) 03/19/2018 8:37 AM Advance Directive Response Recorded Date/ Time Advance Directives No February 11:15am Reason for Referral Specialty Diagnoses / Procedures Referred By Dwayne rosa Referred To Contact CT IMAGING Diagnoses Non-small cell cancer of left lung (HCC) Neoplasm of lung Procedures CT CHEST W IVCON DIAGNOSTIC COMPUTED TOMOGRAPHY THORAX W/CONTRAST Abdi Iqbal MD [address] [place] [address] [place] [address] Ct Imaging Referral ID Status Reason Start Date Expiration Date Visits Requested Visits Authorized [id number] Pending Review Auto-Generat ed Referral 06/06/2022 07/06/2022 1 1 Specialty Diagnoses / Procedures Referred By Dwayne rosa Referred To Contact CT IMAGING Diagnoses Lung mass Procedures CT CHEST WO IVCON DIAGNOSTIC COMPUTED TOMOGRAPHY THORAX W/O CNTRST Vitor Farias MD [address] [place] [address] Ct Imaging Referral ID Status Reason Start Date Expiration Date Visits Requested Visits Authorized [id number] Pending Review Auto-Generat ed Referral 04/22/2022 05/22/2023 1 1 Specialty Diagnoses / Procedures Referred By Contac t Referred To Contact [facility] Diagnoses Lung mass Procedures ECG COMPLETE ECG ROUTINE ECG W/LEAST 12 LDS W/I&R Vitor Farias MD [address] [place] [address] [address] Referral ID Status Reason Start Date Expiration Date Visits Requested Visits Authorized [id number] Pending Review Auto-Generat ed Referral 04/22/2022 04/22/2023 1 1 Specialty Diagnoses / Procedures Referred By Contac t Referred To Contact Infectious Diseases Diagnoses Aspergillus pneumonia (HCC) Non-small cell cancer of left lung (HCC) Procedures CONSULT TO INFECTIOUS DISEASES Abdi Iqbal MD [address] [place] [address] [place] [address] Referral ID Status Reason Start Date Expiration Date Visits Requested Visits Authorized [id number] Ref Not Required PCP Requested Referral 05/14/2022 05/14/2023 1 1 Specialty Diagnoses / Procedures Referred By Contac t Referred To Contact CT IMAGING Diagnoses Neoplasm of lung Procedures CT CHEST W IVCON DIAGNOSTIC COMPUTED TOMOGRAPHY THORAX W/CONTRAST Abdi Iqbal MD [address] [place] [address] [place] [address] Ct Imaging [facility] Referral ID Status Reason Start Date Expiration Date Visits Requested Visits Authorized [id number] Pending Review Auto-Generat ed Referral 05/13/2023 12/27/2023 1 1 Medications Administered Section Inactive Administered Medications - up to 3 most recent administrations Medication Order MAR Action Action Date Dose Rate Site NaCl 0.9% iv infusion 5-30 mL/hr, INTRAVENOUS, CONTINUOUS, Starting on 05/09/22 at 0730, Until 05/10/22 at 0304, Preprocedure Chief Complaint and Reason for Visit Chief Complaint trouble breathing Reason for Visit Chronic respiratory failure with hypoxia COPD exacerbation Exertional shortness of breath Pneumonia Pulmonary cachexia due to COPD Tachycardia Chief Complaint trouble breathing Reason for Visit Acute hypoxic respir atory failure Cachexia Chronic respiratory failure with hypoxia COPD exacerbation Exertional shortness of breath Pneumonia Pulmonary cachexia due to COPD Tachycardia Additional Source Comments INFORMATION SOURCE (unrecogn ized section and content) DATE CREATED AUTHOR 10/06/2017 [facility] DATE CREATED AUTHOR AUTHOR'S ORGANIZ ATION 10/09/2017 [facility] DATE CREATED AUTHOR AUTHOR'S ORGANIZ ATION 03/22/2018 [facility] DATE CREATED AUTHOR AUTHOR'S ORGANIZ ATION 03/26/2021 Israel Kinney [facility] DATE CREATED AUTHOR AUTHOR'S ORGANIZ ATION 04/29/2022 [facility] DATE CREATED AUTHOR AUTHOR'S ORGANIZ ATION 09/19/2022 [facility] DATE CREATED AUTHOR AUTHOR'S ORGANIZ ATION 04/11/2023 [facility] DATE CREATED AUTHOR AUTHOR'S ORGANIZ ATION 05/26/2023 [facility] DATE CREATED AUTHOR AUTHOR'S ORGANIZ ATION 05/31/2023 [facility] Source Comments (unrecognize d section and content) In the event this informatio n is protected by the Federal Confidentiality of Alcohol and Drug Abuse Patient Records regulations: The Federal rules restrict any use of the information to criminally investigate or prosecute any alcohol or drug abuse patient.[facility] HospitalIn the event this information is protected by the Federal Confidentiality of Alcohol and Drug Abuse Patient Records regulations: The Federal rules restrict any use of the information to criminally investigate or prosecute any alcohol or drug abuse patient.[facility] HospitalIn the event this information is protected by the Federal Confidentiality of Alcohol and Drug Abuse Patient Records regulations: The Federal rules restrict any use of the information to criminally investigate or prosecute any alcohol or drug abuse patient.[facility] HospitalIn the event this information is protected by the Federal Confidentiality of Alcohol and Drug Abuse Patient Records regulations: The Federal rules restrict any use of the information to criminally investigate or prosecute any alcohol or drug abuse patient.[facility] HospitalIn the event this information is protected by the Federal Confidentiality of Alcohol and Drug Abuse Patient Records regulations: The Federal rules restrict any use of the information to criminally investigate or prosecute any alcohol or drug abuse patient.[facility] HospitalIn the event this information is protected by the Federal Confidentiality of Alcohol and Drug Abuse Patient Records regulations: The Federal rules restrict any use of the information to criminally investigate or prosecute any alcohol or drug abuse patient.[facility] HospitalIn the event this information is protected by the Federal Confidentiality of Alcohol and Drug Abuse Patient Records regulations: The Federal rules restrict any use of the information to criminally investigate or prosecute any alcohol or drug abuse patient.[facility] HospitalIn the event this information is protected by the Federal Confidentiality of Alcohol and Drug Abuse Patient Records regulations: The Federal rules restrict any use of the information to criminally investigate or prosecute any alcohol or drug abuse patient.[facility] HospitalIn the event this information is protected by the Federal Confidentiality of Alcohol and Drug Abuse Patient Records regulations: The Federal rules restrict any use of the information to criminally investigate or prosecute any alcohol or drug abuse patient.[facility] HospitalIn the event this information is protected by the Federal Confidentiality of Alcohol and Drug Abuse Patient Records regulations: The Federal rules restrict any use of the information to criminally investigate or prosecute any alcohol or drug abuse patient.[facility] HospitalIn the event this information is protected by the Federal Confidentiality of Alcohol and Drug Abuse Patient Records regulations: The Federal rules restrict any use of the information to criminally investigate or prosecute any alcohol or drug abuse patient.[facility] HospitalIn the event this information is protected by the Federal Confidentiality of Alcohol and Drug Abuse Patient Records regulations: The Federal rules restrict any use of the information to criminally investigate or prosecute any alcohol or drug abuse patient.[facility] HospitalIn the event this information is protected by the Federal Confidentiality of Alcohol and Drug Abuse Patient Records regulations: The Federal rules restrict any use of the information to criminally investigate or prosecute any alcohol or drug abuse patient.[facility] HospitalIn the event this information is protected by the Federal Confidentiality of Alcohol and Drug Abuse Patient Records regulations: The Federal rules restrict any use of the information to criminally investigate or prosecute any alcohol or drug abuse patient.[facility] HospitalIn the event this information is protected by the Federal Confidentiality of Alcohol and Drug Abuse Patient Records regulations: The Federal rules restrict any use of the information to criminally investigate or prosecute any alcohol or drug abuse patient.[facility] HospitalIn the event this information is protected by the Federal Confidentiality of Alcohol and Drug Abuse Patient Records regulations: The Federal rules restrict any use of the information to criminally investigate or prosecute any alcohol or drug abuse patient.[facility] Reason for Visit (unrecogniz ed section and content) Reason Comments Lung Cancer Reason Comments Orders Reason Comments Orders Reason Comments Lung Cancer Reason Comments Appointment PreOp Bronch Reason Comments Patient Update Appointment Reason Comments Lung Cancer Lung Mass Reason Comments Appointment Specialty Diagnoses / Procedures Referred By Contac t Referred To Contact ADMITTING Diagnoses Bronchiolar disease Procedures [facility] INCL FLUOR GDNCE DX W/CELL WASHG SPX BRONCHOSCOPY [facility] [address] Referral ID Status Reason Start Date Expiration Date Visits Re quested Visits Authorized [id number] 1 1 Reason Comments Appointment Reason Comments Patient Update Future Appointment Care Teams (unrecognized sec tion and content) Remote Broadcast Technician Relationship Specialty Start Date End Date Adithya Bass MD [address] [place] [address] PCP - General Family Practice 02/25/18 Remote Broadcast Technician Relationship Specialty Start Date End Date Adithya Bass MD [address] [place] [address] PCP - General Family Medicine 02/25/18 Remote Broadcast Technician Relationship Specialty Start Date End Date Adithya Bass MD [address] [place] [address] PCP - General Family Medicine 02/25/18 Remote Broadcast Technician Relationship Specialty Start Date End Date Adithya Bass MD [address] [place] [address] PCP - General Family Medicine 02/25/18 Remote Broadcast Technician Relationship Specialty Start Date End Date Adithya Bass MD [address] [place] [id number] PCP - General Family Medicine 02/25/18 Remote Broadcast Technician Relationship Specialty Start Date End Date Adithya Bass MD [address] [place] [address] PCP - General Family Medicine 02/25/18 Remote Broadcast Technician Relationship Specialty Start Date End Date Adithya Bass MD [address] [place] [address] PCP - General Family Medicine 02/25/18 Remote Broadcast Technician Relationship Specialty Start Date End Date Adithya Bass MD [address] [place] [address] PCP - General Family Medicine 02/25/18 Remote Broadcast Technician Relationship Specialty Start Date End Date Adithya Bass MD [address] [place] [address] PCP - General Family Medicine 02/25/18 Remote Broadcast Technician Relationship Specialty Start Date End Date Adithya Bass MD PCP - General Family Medicine 02/25/18 Remote Broadcast Technician Relationship Specialty Start Date End Date Adithya Bass MD PCP - General Family Medicine 02/25/18 Team Status: Active Member Role Status Dates Adithya Bass MD Primary Care Provider Active Team Status: Active Member Role Status Dates Adithya Bass MD Primary Care Provider Active Start: May 14, 2023 Stacia Garcia MD Emergency Provider Active Start: May 14, 2023 Ally Warner MD Admit Provider, Atte nding Provider, Other Provider Active Start: May 14, 2023 Team Status: Active Member Role Status Dates Adithya Bass MD Primary Care Provider Active Start: May 14, 2023 Stacia Garcia MD Emergency Provider Active Start: May 14, 2023 Ally Warner MD Admit Provider, Atte nding Provider, Other Provider Active Start: May 14, 2023 Cassandra Andersen MD Attending Provider Active Sta rt: May 14, 2023 End: May 17, 2023 Continuous Active and Recently Administ ered Medications (unrecognized section and content) Medication Order 05/07/2022 05/08/2022 05/09/2022 NaCl 0.9% iv infusion 5-30 mL/hr, INTRAVENOUS, CONTINUOUS, Starting on Thu05/09/22 at 0730, Until 05/10/22 at 0304, Preprocedure 0730 (Due) Goals (unrecognized section and content) Goals may be documented in a n alternate section FOR RECORDS PERTAINING TO PATIENTS WHO ARE [...] BE BASED ON THE PRIMARY CLINICAL RECORDS. [facility]. provides no warranty or guarantee of the accuracy or completeness of information in this document.
--- NOTE | 2023-06-06 15:07 | CT_ITS ---
The [address] [address] Patient Name: PHOEBE STANLEY MRN: [id number] date: 1960 Sex: F Assigned Patient Location: ER Current Patient Location: ER Accession/Order Number: [id number] Exam Date: 06/06/2023 16:15 Report Date: 06/06/2023 17:27 At the request of: CED FITCH Procedure: CT abdomen pelvis w con EXAM: CT abdomen pelvis w con HISTORY: Abdominal pain . Nausea, vomiting, diarrhea. COMPARISON: Chest CT scans including the upper abdomen 03/04/[address] images obtained as part of a PET/CT 03/07/2022. TECHNIQUE: CT abdomen with contrast. Axial scans with reformatted coronal and sagittal images. Contrast: 91 mL Omnipaque 350 FINDINGS: Lower chest: Minor scarring right lung base anteriorly. No consolidation or edema or other acute process. No pleural effusion. ABDOMEN: Normal enhancement liver without focal mass. Fluid-filled gallbladder with dependent high density material consistent with small stones. No wall thickening or edema or surrounding inflammation. Normal-appearing adrenal glands, pancreas, spleen. No ascites, free fluid or free air. No mesenteric or periaortic mass or adenopathy. Normal symmetric renal enhancement without solid mass or hydronephrosis. Simple cyst right kidney 1.7 cm unchanged. No ureteral calculus. Normal size aorta with enhancement. Normal venous enhancement. Stomach, duodenum and proximal small bowel loops upper abdomen left leg are unremarkable. Mildly distended mid-distal small bowel loops with increased fluid throughout the abdomen and pelvis. The distal ileum is normal caliber. There appears to be wall thickening involving the cecum and ascending colon may reflect colitis. I do not however see pericolonic inflammation colon does not appear distended. There is fluid in the rectum without distention. Diverticula disease involving the pelvic colon without adjacent inflammation. Pelvis: No mass or adenopathy or free fluid. Unremarkable uterus. Venous varicosities seen in the adnexa. Moderate fluid in the bladder. MUSCULOSKELETAL: No pathologic fracture or suspicious focal bone lesion. CT/CT abdomen pelvis w con IMPRESSION: 1. Abnormal bowel gas pattern with mildly distended mid and distal abdominal bowel small loops with increased fluid. The distal ileum does not appear to be involved and the more proximal small bowel loops in the left flank are unremarkable. Could reflect enteritis or mild ileus. Decreased caliber of the cecum and ascending colon, equivocal edema of the wall. May reflect colitis. I do not see free fluid or free air. Findings not typical of obstruction. 2. High density material dependent gallbladder likely small stones without findings suggesting cholecystitis. 3. No findings suspicious for metastatic disease. Electronically authenticated by: JAYE JOEL Date: 06/06/2023 17:27
--- NOTE | 2023-06-06 15:07 | ECG_ITS ---
[facility] Test Date: 2023-06-06 Pat Name: PHOEBE STANLEY Department: Room: - Gender: Female [employer]: : 1960 Requested By: ADITHYA KENYON Order Number: [id number] Reading MD: MATTIE LOPEZ Measurements Intervals [place] Rate: 139 P: -[id number] CA: -[id number] QRS: 89 QRSD: 66 T: 96 QT: 380 QTc: 461 Interpretive Statements Sinus tachycardia 9150 abnormal ECG Electronically Signed On 06-07-2023 7:36:20 EST by MATTIE LOPEZ
--- NOTE | 2023-06-06 15:13 | ED_ITS ---
HPI - General Adult General Chief complaint: Nausea/Vomiting/Diarrhea Stated complaint: Nausea/Vomiting/Diarrhea Time Seen by Provider: 06/06/23 15:07 Source: patient Mode of arrival: ambulance Limitations: no limitations History of Present Illness HPI narrative: Patient is a 62-year-old female with a history of COPD who wears oxygen by nasal cannula chronically. She presents to the ER for the evaluation of abdominal pain, vomiting and diarrhea that began this morning. She reports diffuse abdominal pain. She states her grandson was sick with similar symptoms several days ago. She has not had any blood in her stool. She states she has significantly more diarrhea than she does vomiting. She has had a previous appendectomy and , she denies any other abdominal surgeries. No history of bowel surgeries or colitis/diverticulitis. No urinary symptoms reported. She denies any fevers or upper respiratory symptoms. Related Data Home Medications Medication Instructions Recorded Confirmed budesonide 0.5 mg/2 mL suspension 0.5 mg inhalation Q12H shortness 09/22/22 05/07/23 for nebulization of breath or wheezing ipratropium 0.5 mg-albuterol 3 mg 3 ml inhalation Q6H PRN shortness 09/22/22 05/07/23 (2.5 mg base)/3 mL nebulization of breath soln montelukast 10 mg tablet 10 mg PO .hs 09/22/22 05/07/23 tiotropium 2.5 mcg-olodaterol 2.5 2 puff inhalation Q24H 09/22/22 05/07/23 mcg/actuation mist for inhalation (Stiolto Respimat) albuterol sulfate 90 mcg/actuation 2 inh inhalation QID PRN SOB 02/07/23 05/07/23 aerosol inhaler (ProAir HFA) sodium chloride 3 % for 4 ml inhalation Q8H PRN SOB 02/07/23 05/07/23 nebulization (NebuSal) theophylline 400 mg 400 mg PO DAILY 02/07/23 05/07/23 tablet,extended release 24 hr fluticasone propionate 50 2 spray intranasal QD PRN allergy 05/07/23 05/07/23 mcg/actuation nasal symptoms spray,suspension Previous Rx's Medication Instructions Recorded ferrous sulfate 325 mg (65 mg 325 mg PO BID #60 tabs 05/09/23 iron) tablet levofloxacin 750 mg tablet 750 mg PO DAILY 14 days #14 tabs 05/09/23 prednisone 10 mg tablet 50 mg (5 x 10 mg) PO DAILY #47 tabs 05/09/23 hyoscyamine sulfate 0.125 mg 0.125 mg PO Q6H PRN abdominal pain 06/06/23 tablet (Levsin) #12 tabs ondansetron 4 mg disintegrating 4 mg PO Q6H PRN nausea and 06/06/23 tablet vomiting #12 tabs Allergies Allergy/AdvReac Type Severity Reaction Status Date / Time No Known Drug Allergies Allergy Verified 06/06/23 14:31 Review of Systems ROS Constitutional Denies: fever or chills Ears, nose, mouth, and throat Denies: throat pain or nasal congestion Cardiovascular Denies: chest pain Respiratory Denies: shortness of breath or cough Gastrointestinal Reports: abdominal pain, nausea, vomiting and diarrhea Genitourinary Denies: painful urination Musculoskeletal Denies: back pain or neck pain Integumentary/Breast Denies: rash Neurological Denies: headache PFSH PFSH Medical History (Updated 06/06/23 @ 17:43 by MILY Valdez) Acute exacerbation of chronic obstructive pulmonary disease (COPD) ?J44.1 - Chronic obstructive pulmonary disease with (acute) exacerbation (ICD-10) Tachycardia ?R00.0 - Tachycardia, unspecified (ICD-10) Failure of outpatient treatment ?Z78.9 - Other specified health status (ICD-10) Tachypnea ?R06.82 - Tachypnea, not elsewhere classified (ICD-10) Asthma exacerbation in COPD ?J44.1 - Chronic obstructive pulmonary disease with (acute) exacerbation (ICD-10) ?J45.901 - Unspecified asthma with (acute) exacerbation (ICD-10) Community acquired pneumonia ?J18.9 - Pneumonia, unspecified organism (ICD-10) Acute infective exacerbation of chronic obstructive airway disease ?J44.1 - Chronic obstructive pulmonary disease with (acute) exacerbation (ICD-10) Acute bronchitis ?J20.9 - Acute bronchitis, unspecified (ICD-10) Acute and chronic respiratory failure with hypoxia ?J96.21 - Acute and chronic respiratory failure with hypoxia (ICD-10) Iron deficiency anemia ?D50.9 - Iron deficiency anemia, unspecified (ICD-10) Sinus tachycardia ?R00.0 - Tachycardia, unspecified (ICD-10) Acute exacerbation of chronic obstructive pulmonary disease ?J44.1 - Chronic obstructive pulmonary disease with (acute) exacerbation (ICD-10) Chronic obstructive pulmonary disease ?J44.9 - Chronic obstructive pulmonary disease, unspecified (ICD-10) Family History (Updated 09/22/22 @ 21:17 by Veronika Almeida) Other Family history of myocardial infarction Social History Within the past year, how often did you have a drink containing alcohol: never Score interpretation: A score less than 3 is consistent with normal alcohol consumption. Smoking status: Former smoker Non-prescribed substance use: denies use Previous occupational history: disabled Highest level of school completed/degree received: GED or equivalent Are you now , , , , never or living with a partner: In a typical week, how many times do you talk on the telephone with family, friends, or neighbors: 3 or more times per week How often do you get together with friends or relatives: 3 or more times per week How often do you attend advent or yarsanism services: 1-3 times per year Do you belong to any clubs or organizations such as advent groups unions, fraAnswerology or athletic groups, or school groups: no Total score: 2 Score interpretation: A score of greater than or equal to 2 indicates the lowest level of social isolation. Little interest or pleasure in doing things: not at all Feeling down, depressed, or hopeless: not at all Feel stressed/tense/nervous/anxious/difficulty sleeping: not at all Do you think of yourself as: straight/heterosexual Gender Identity: female Exam Narrative Exam Narrative: Gen.: Awake, alert, in no distress Head: Normocephalic, atraumatic ENT: Moist mucous membranes Respiratory: No respiratory distress, Oxygen by nasal cannula Cardio: Regular rate and rhythm Gastrointestinal: Abdomen is soft, nondistended and Diffusely mildly tender to palpation with no point tenderness or guarding, no rebound. Extremities: Moves extremities equally Psych: Normal mood and affect Neuro: No focal neuro deficit Skin: Warm, dry, intact Constitutional Vital Signs, click to edit/add: Last Vital Signs Temp 98.2 F 06/06/23 14:31 Pulse 121 H 06/06/23 17:20 Resp 18 06/06/23 17:20 BP 103/60 06/06/23 17:00 Pulse Ox 97 06/06/23 17:20 O2 Del Method Nasal Cannula 06/06/23 14:39 O2 Flow Rate 2 06/06/23 14:39 Course Vital Signs Vital signs: Vital Signs Temperature 98.2 F 06/06/23 14:31 Pulse Rate 141 H 06/06/23 14:31 Respiratory Rate 18 06/06/23 14:31 Blood Pressure 123/72 06/06/23 14:31 Pulse Oximetry 98 06/06/23 14:31 Oxygen Delivery Method Nasal Cannula 06/06/23 14:31 Oxygen Delivery Flow Rate 2 06/06/23 14:31 Temperature 98.2 F 06/06/23 14:31 Pulse Rate 121 H 06/06/23 17:20 Respiratory Rate 18 06/06/23 17:20 Blood Pressure 103/60 06/06/23 17:00 Pulse Oximetry 97 06/06/23 17:20 Oxygen Delivery Method Nasal Cannula 06/06/23 14:39 Oxygen Delivery Flow Rate 2 06/06/23 14:39 Medical Decision Making MDM Narrative Medical decision making narrative: Patient was medicated with 2 L of IV fluids. She had no episodes of emesis or diarrhea in the emergency department. She was given IV Toradol, sublingual Levsin and Zofran. Abdomen is soft and benign in the ER. Lab studies with normal white blood cell count, normal creatinine and lactic acid. CT of the abdomen and pelvis with evidence of gastroenteritis. We will not treat for colitis as symptoms began today and white blood cell count is normal with no fever. Patient was persistently mildly tachycardic in the ER although heart rate did improve with IV fluids. Patient states her heart rate at home at rest is typically 120. Previous documentation for visits for COPD shows the patient's heart rate as high as 140. She is discharged home with a prescription for Levsin and Zofran. Follow-up with PCP and return to the ER if symptoms change or worsen. Medical Records Medical records reviewed: Yes I reviewed the patient's medical records Lab Data Lab results reviewed: Yes I reviewed the patient's lab results Labs: Lab Results 06/06/23 Range/Units 15:17 WBC 8.0 (4.0-11.0) 10^3/uL RBC 4.72 (4.20-5.40) 10^6/uL Hgb 13.4 (12.0-16.0) g/dL Hct 42.5 (36.0-48.0) % MCV 90.0 (81.0-99.0) fL MCH 28.4 (26.7-34.0) pg MCHC 31.5 (29.9-35.2) g/dL RDW 13.7 (11.0-15.0) % Plt Count 208 (150-450) 10^3/uL MPV 9.3 L (9.5-13.5) fL Seg Neuts % (Manual) 84.0 Band Neutrophils % 6.0 H (0-5) % Lymphocytes % (Manual) 7.0 L (20.5-60.0) % Monocytes % (Manual) 2.0 (1.7-12.0) % Eosinophils % (Manual) 1.0 (0.9-7.0) % Basophils % (Manual) 0.0 L (0.2-2.0) % Neutrophils # (Manual) 6.72 H (1.4-6.5) 10^3/uL Band Neutrophils # 0.5 H (0.0-0.3) 10^3/uL Lymphocytes # (Manual) 0.56 L (1.20-3.80) 10^3/uL Monocytes # (Manual) 0.16 L (0.30-0.80) 10^3/uL Eosinophils # (Manual) 0.08 (0.00-0.70) 10^3/uL Basophils # (Manual) 0.00 (0.00-0.10) 10^3/uL Sodium 138 (136-145) mmol/L Potassium 4.4 (3.5-5.1) mmol/L Chloride 98 (98-107) mmol/L Carbon Dioxide 33.2 H (21.0-32.0) mmol/L Anion Gap 11.2 BUN 15.0 (7.0-18.0) mg/dL Creatinine 0.50 L (0.55-1.02) mg/dL Est GFR ( Amer) >60 (>=60) Est GFR (Non-Af Amer) >60 (>=60) BUN/Creatinine Ratio 30.0 Glucose 108 H (74-106) mg/dL Lactate 1.1 (0.4-2.0) mmol/L Calcium 9.1 (8.5-10.1) mg/dL Total Bilirubin 0.4 (0.2-1.0) mg/dL AST 37 (15-37) U/L ALT 53 (14-59) U/L Alkaline Phosphatase 89 (46-116) U/L Total Protein 7.1 (6.4-8.2) g/dL Albumin 3.0 L (3.4-5.0) g/dL Globulin 4.1 g/dL Albumin/Globulin Ratio 0.7 Lipase 21.0 (16.0-77.0) U/L Imaging Data CT scan - abdomen: Attestation: I have reviewed the pertinent imaging results. Radiologist's impression: ITS Impressions Abdomen/Pelvis CT 06/06/23 15:07 IMPRESSION: 1. Abnormal bowel gas pattern with mildly distended mid and distal abdominal bowel small loops with increased fluid. The distal ileum does not appear to be involved and the more proximal small bowel loops in the left flank are unremarkable. Could reflect enteritis or mild ileus. Decreased caliber of the cecum and ascending colon, equivocal edema of the wall. May reflect colitis. I do not see free fluid or free air. Findings not typical of obstruction. 2. High density material dependent gallbladder likely small stones without findings suggesting cholecystitis. 3. No findings suspicious for metastatic disease. Electronically authenticated by: JAYE JOEL Date: 06/06/2023 17:27 ECG Data Attestation: I personally reviewed and interpreted this ECG as follows: (Sinus tachycardia at a rate of 139, no acute ST elevation or ectopy. EKG reviewed by attending physician) Discharge Plan Discharge Chief Complaint: Nausea/Vomiting/Diarrhea Clinical Impression: Vomiting and diarrhea, Abdominal pain Patient Disposition: Home, Self-Care Time of Disposition Decision: 17:43 Condition: Good Prescriptions / Home Meds: New hyoscyamine sulfate [Levsin] 0.125 mg tablet 0.125 mg PO Q6H PRN (Reason: abdominal pain) Qty: 12 0RF ondansetron 4 mg tablet,disintegrating 4 mg PO Q6H PRN (Reason: nausea and vomiting) Qty: 12 0RF No Action budesonide 0.5 mg/2 mL suspension for nebulization 0.5 mg inhalation Q12H ipratropium-albuterol 0.5 mg-3 mg(2.5 mg base)/3 mL solution for nebulization 3 ml INHALATION Q6H PRN (Reason: shortness of breath) montelukast 10 mg tablet 10 mg PO .hs Stiolto Respimat 2.5-2.5 mcg/actuation mist 2 puff INHALATION Q24H theophylline 400 mg tablet extended release 24 hr 400 mg PO DAILY albuterol sulfate [ProAir HFA] 90 mcg/actuation HFA aerosol inhaler 2 inh inhalation QID PRN (Reason: SOB) sodium chloride [NebuSal] 3 % solution for nebulization 4 ml inhalation Q8H PRN (Reason: SOB) fluticasone propionate 50 mcg/actuation [place],Suspension 2 spray intranasal QD PRN (Reason: allergy symptoms) prednisone 10 mg tablet 50 mg PO DAILY Qty: 47 0RF Rx Instructions: 5/day for 3 days. 4/day for 3 days, 3/day for 3 days, 2/day for 3 days, 1/day for 3 days, 1/2 /day for 4 days levofloxacin 750 mg tablet 750 mg PO DAILY 14 Days Qty: 14 0RF ferrous sulfate 325 mg (65 mg iron) tablet 325 mg PO BID Qty: 60 11RF Instructions: Gastroenteritis (ED) Stand Alone Forms: Portal Instructions Referrals: Kaiden Bass MD [Primary Care Provider] - 1 week
[2023-06-06 15:24] LABS: Hematocrit 42.5 % (36.0-48.0); Hemoglobin 13.4 g/dL (12.0-16.0); Mean Corpuscular HGB Conc 31.5 g/dL (29.9-35.2); Mean Corpuscular Hemoglobin 28.4 pg (26.7-34.0); Mean Platelet Volume 9.3 fL (9.5-13.5); Platelet Count 208 10^3/uL (150-450); Red Blood Count 4.72 10^6/uL (4.20-5.40); Red Cell Distribution Width 13.7 % (11.0-15.0)
[2023-06-06] MEDS: 0.9 % SODIUM CHLORIDE 1,000 ML 999 ML IV (15:24)
[2023-06-06] MEDS: ONDANSETRON PF 4 MG/2 ML VIAL IV (15:24)
[2023-06-06] MEDS: KETOROLAC TROMETHAMINE 30 MG/ML VIAL 15 MG IVP (15:24)
[2023-06-06] MEDS: HYOSCYAMINE SULFATE 0.125 MG TAB.SUBL SL (15:24)
[2023-06-06] MEDS: IPRATROPIUM/ALBUTEROL SULFATE 3 ML AMPUL.NEB IH (15:37)
[2023-06-06 15:45] LABS: Alanine Aminotransferase 53 U/L (14-59); Albumin Globulin Ratio 0.7; Alkaline Phosphatase 89 U/L (46-116); Anion Gap 11.2; Aspartate Amino Transferase 37 U/L (15-37); Bilirubin Total 0.4 mg/dL (0.2-1.0); Calcium 9.1 mg/dL (8.5-10.1); Carbon Dioxide 33.2 mmol/L (21.0-32.0); Chloride 98 mmol/L (98-107); Estimated GFR (African America >60 (>=60); Estimated GFR (Non-African Ame >60 (>=60); Globulin 4.1 g/dL; Glucose 108 mg/dL (74-106); Potassium 4.4 mmol/L (3.5-5.1); Sodium 138 mmol/L (136-145); Total Protein 7.1 g/dL (6.4-8.2)
[2023-06-06 15:48] LABS: Lactate/Lactic Acid 1.1 mmol/L (0.4-2.0)
[2023-06-06 16:09] LABS: Band Neutrophils Absolute 0.5 10^3/uL (0.0-0.3); Eosinophils Absolute Manual 0.08 10^3/uL (0.00-0.70); Lymphocytes Absolute Manual 0.56 10^3/uL (1.20-3.80); Monocytes Absolute Manual 0.16 10^3/uL (0.30-0.80); Segmented Neut Absolute Manual 6.72 10^3/uL (1.4-6.5)
[2023-06-06] MEDS: 0.9 % SODIUM CHLORIDE 1,000 ML 1000 ML IV (16:36)
== END 2023-06-06 18:12 | disposition home or self-care (01) ==
PROVIDERS: Physician Assistant; Emergency Provider Emergency Medicine Emergency Medical Services; PCP Family Medicine
DX: R10.9 Unspecified abdominal pain (principal); R11.10 Vomiting, unspecified; R19.7 Diarrhea, unspecified; J44.9 Chronic obstructive pulmonary disease, unspecified; Z99.81 Dependence on supplemental oxygen; Z79.51 Long term (current) use of inhaled steroids; Z87.01 Personal history of pneumonia (recurrent); Z87.891 Personal history of nicotine dependence
CPT/HCPCS: 36415; 74177; 80053; 83605; 83690; 85007; 85027; 87507; 93005; 94640; 96361; 96374; 96375; 99285; J1885; J2405; Q9967

== ENCOUNTER 2023-06-11 15:46 | Outpatient (REF) | payer OTHER, SELFPAY ==
--- NOTE | 2023-06-11 16:00 | XR_ITS ---
The [address] [address] Patient Name: PHOEBE STANLEY MRN: [id number] date: 1960 Sex: F Assigned Patient Location: LAB Current Patient Location: Accession/Order Number: [id number] Exam Date: 06/11/2023 16:00 Report Date: 06/12/2023 07:28 At the request of: ADITHYA KENYON Procedure: XR ribs LT min 3V w CXR1V EXAMINATION: XR ribs LT min 3V w CXR1V HISTORY: acute bronchitis J20.9 COMPARISON: 05/13/2023 FINDINGS: LUNGS: Severe emphysema. New focal infiltrate in the left upper lobe and left midlung PLEURA: No pneumothorax, effusion, or pleural thickening. MEDIASTINUM: No visible mass or adenopathy. Aortic atherosclerosis CARDIAC: No cardiomegaly or cardiac silhouette abnormality. RIBS: No acute rib fracture OTHER: Call results initiated through operations. XR/XR ribs LT min 3V w CXR1V IMPRESSION: Multifocal pneumonia involving the upper and midlung zones Electronically authenticated by: JULES RAMIREZ Date: 06/12/2023 07:28
--- OUTSIDE RECORDS SUMMARY | 2023-06-11 16:48 | XMS_ITS | CCD ---
Author Name Unknown Address [address] [facility] [address] [place] [address] Organization [facility] Care Team Providers Care Fur Cutting Machine Operator Name Role Phone Adithya Bass Unavailable Unavailable JAYE HOUGH Unavailable Unavailable ADITHYA BASS Unavailable Unavailable DUGLAS FERNANDEZ Unavailable Unavailable Adithya Bass MD Primary Care Provider [phone] Adithya Bass MD Primary Care Provider [phone] Adithya Bass MD Primary Care Provider [phone] VITOR FARIAS Attending Unavailable ADITHYA BASS Primary [...] EAMON ANDREWS Consulting Unavailable JESSEY ., DR AHJI Admitting Unavailable HOY ., DR HAJI Attending Unavailable HOY ., DR HAJI Consulting Unavailable HOY ., DR HAJI Primary Care Unavailable [place], DR JULES Naranjo Consulting Unavailable HOY ., [...] Unavailable Adithya Bass MD Primary Care Provider [phone] ANA DRIVER Attending Unavailable LINDY, ABDI Attending Unavailable ADITHYA BASS Primary Care Unavailable LINDY, ABDI Attending Unavailable [...] levoFLOXacin; Translations: [LEVOFLOXACIN] Drug Allergy 03-02-2018 Unknown [facility] Repository (2 sources) levoFLOXacin Drug Allergy [facility] Repository Medications Current Medications Medication Drug [...] mg by mouth daily at bedtime. nystatin 888214 unt/ml oral suspension (4 sources) Polyene Antifungal Start: 05-17-2023 take 649803 [IU] by mouth three times daily Nystatin Active 322585 UNIT PO Three times daily May 17, 2023 8:48am Nystatin 806072 units/mL 1 mL to each cheek Four [...] 12:00am Start: 02-02-2018 take 1 capsule by [facility] once daily, then take 1 capsule by mouth every twenty-four hours Theophylline SR (MI-24) 400 mg 24 hr capsule Take 400 mg by mouth once daily. 12 02/02/2018 Active Start: 02-02-2018 take 1 capsule by [facility] once daily MI-24 200 mg 24 hr [...] mouth. 0 Active take [facility]-four hours Cetirizine HCl 10 MG 1 tablet Orally Onc e a day Active Comment on above: Take by mouth. docusate sodium 50 mg / sennosides, care home 8.6 mg oral tablet (16 sources) Start: 05-25-2018 take 2 tablets by mouth every twelve hours as needed senna-docusate (SENOKOT-S) 8.6-50 mg per tablet Take 2 tablets by mouth twice daily as needed. 100 tablet 1 05/25/2018 Active Comment on above: Take 2 tablets by mo [facility] twice daily as needed. 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 Telephone (RADTSA) CINTHIA STANLEY ([id number]) 1960 F Date Time Provider Department 05/20/23 ABDI IQBAL During your visit today, we recorded the following information about you: Silvia Lomax, LUCIE 05/20/2023 9:55 AM Signed Pt called in and was admitted to [facility] last week. They did CT Chest. She has been waiting on insurance approval for a chest CT and will not need one now. She would like follow up arranged. Reports printed from [facility] and images requested. PSS- please call pt and arrange follow up with Dr Iqbal for next week. Thank you ULCIE Mchugh Tiffany 05/20/2023 9:59 AM Signed Patient [...] Status:Closed by SILVIA LOMAX on 05/20/[address] [facility] Complete Blood Count Auto Di ffon 05-15-2023 Basophils (Bld) [#/Vol] 0.0 10*3/uL Normal 0.0-0.2 [facility] Comment on above: Result Comment: PERF ORMED BY: [facility] [address] [place] [address] PATHOLOGIST FAMILY INDEPENDENCE CASE MANAGER JASMEET LIN M.D. Performed By: #### C MP, CBC #### [facility] [address] [place] [address] [place] Basophils/100 WBC (Bld) 0.3 % Normal . [facility] Comment on above: Performed By: #### C MP, CBC #### [facility] [address] Eosinophils (Bld) [#/Vol] 0.0 10*3/uL Normal 0.0-0.45 [facility] Comment on above: Performed By: #### C MP, CBC #### [facility] [address] Eosinophils/100 WBC (Bld) 0.0 % Normal . [facility] Comment on above: Performed By: #### C MP, CBC #### [address] Erythrocyte distribution width (RBC) [Ratio] 13.5 % Normal 11.9-15.3 [facility] Comment on above: Performed By: #### C MP, CBC #### [address] Hematocrit (Bld) [Volume fraction] 42.0 % Normal 34.0-46.4 [facility] Comment on above: Performed By: #### C MP, CBC #### [address] Hemoglobin (Bld) [Mass/Vol] 13.9 g/dL Normal 11.8-15.4 [facility] Comment on above: Performed By: #### C MP, CBC #### [address] Lymphocytes (Bld) [#/Vol] 0.6 10*3/uL Low 1.00-4.8 [facility] Comment on above: Performed By: #### C MP, CBC #### [address] Lymphocytes/100 WBC (Bld) 8.4 % Normal . [facility] Comment on above: Performed By: #### C MP, CBC #### [address] MCH (RBC) [Entitic mass] 28.0 pg Normal 24.7-34.3 [facility] Comment on above: Performed By: #### C MP, CBC #### [address] MCV (RBC) [Entitic vol] 84.8 fL Normal 80-100 [facility] Comment on above: Performed By: #### C MP, CBC #### [address] Mean Corpuscular HGB Conc 33.0 g/dL Normal 32.0-35.0 [facility] Comment on above: Performed By: #### C MP, CBC #### [address] Monocytes (Bld) [#/Vol] 0.4 10*3/uL Normal 0.0-0.8 [facility] Comment on above: Performed By: #### C MP, CBC #### [address] Monocytes/100 WBC (Bld) 4.9 % Normal . [facility] Comment on above: Performed By: #### C MP, CBC #### [address] Neutrophils (Bld) [#/Vol] 6.6 10*3/uL Normal 1.8-7.7 [facility] Comment on above: Performed By: #### C MP, CBC #### [address] Neutrophils/100 WBC (Bld) 86.4 % Normal . [facility] Comment on above: Performed By: #### C MP, CBC #### [address] NRBC% 0.0 /100{WBC} Normal 0-0.5 [facility] Comment on above: Performed By: #### C MP, CBC #### [address] Platelet mean volume (Bld) [Entitic vol] 7.3 fL Normal 6.3-10.7 [facility] Comment on above: Performed By: #### C MP, CBC #### [facility] [address] Platelets (Bld) [#/Vol] 378 10*3/uL Normal 150-450 [facility] Comment on above: Performed By: #### C MP, CBC #### [facility] [address] RBC (Bld) [#/Vol] 4.95 10*6/uL Normal 3.60-5.00 [facility] Comment on above: Performed By: #### C MP, CBC #### [facility] [address] WBC (Bld) [#/Vol] 7.6 10*3/uL Normal 3.8-11.6 [facility] Comment on above: Performed By: #### C MP, CBC #### [address] Comprehensive Metabolic Pane [place] 05-15-2023 Albumin [Mass/Vol] 4.0 g/dL Normal 3.5-5.7 [facility] Comment on above: Performed By: #### C MP, CBC ####[address] Albumin/Globulin [Mass ratio] 1.3 {ratio} Normal [facility] Comment on above: Performed By: #### C MP, CBC ####[address] ALP [Catalytic activity/Vol] 68 U/L Normal 34-104 [facility] Comment on above: Performed By: #### C MP, CBC ####[address] ALT [Catalytic activity/Vol] 13 U/L Normal 7-52 [facility] Comment on above: Performed By: #### C MP, CBC ####[address] Anion gap [Moles/Vol] 6.9 mmol/L Normal 6.0-15.0 [facility] Comment on above: Performed By: #### C MP, CBC ####[address] [address] [place] AST [Catalytic activity/Vol] 16 U/L Normal 13-39 [facility] Comment on above: Performed By: #### C MP, CBC ####[place] [id number] [place] Bilirubin [Mass/Vol] 0.4 mg/dL Normal 0.3-1.0 [facility] Comment on above: Performed By: #### C MP, CBC ####[place] [address] [place] [id number] [place] Calcium [Mass/Vol] 9.7 mg/dL Normal 8.6-10.3 [facility] Comment on above: Performed By: #### C MP, CBC ####[place] [id number] [place] Chloride [Moles/Vol] 90 mmol/L Low 98-107 [facility] Comment on above: Performed By: #### C MP, CBC ####[place] [id number] [place] CO2 [Moles/Vol] 44.4 mmol/L High 21.0-31.0 [facility] Comment on above: Performed By: #### C MP, CBC ####[address] [address] [place] Creatinine [Mass/Vol] 0.48 mg/dL Low 0.60-1.20 [facility] Comment on above: Performed By: #### C MP, CBC ####[place] [id number] [place] Creatinine Clr Calc Pharmacy 76.17 Normal [facility] Comment on above: Result Comment: PERF ORMED BY: [facility] [address] [place] [id number] PATHOLOGIST FAMILY INDEPENDENCE CASE MANAGER JASMEET LIN M.D. Performed By: #### C MP, CBC ####[facility] [place] [address] [place] GFR/1.73 sq M.predicted MDRD (S/P/Bld) [Vol rate/Area] mL/min/{1.73_m2} [facility] Comment on above: Performed By: #### C MP, CBC ####[place] [address] [place] [address] [place] Globulin (S) [Mass/Vol] 3.1 g/dL [facility] Comment on above: Performed By: #### C MP, CBC ####[place] [address] [place] [address] [place] Glucose [Mass/Vol] 148 mg/dL High 70-100 [facility] Comment on above: Result Comment: [facility] Glucose Reference Range is dependent on time and content of last meal. Glucose of more than 200 mg/dL in a nonstressed, ambulatory subject supports the diagnosis of Diabetes Mellitus. ADA recommended reference range Performed By: #### C MP, CBC ####[address] [address] [place] Potassium [Moles/Vol] 4.3 mmol/L Normal 3.5-5.1 [facility] Comment on above: Performed By: #### C MP, CBC ####[address] [address] [place] Protein [Mass/Vol] 7.1 g/dL Normal 6.4-8.9 [facility] Comment on above: Performed By: #### C MP, CBC ####[address] [address] [place] Sodium [Moles/Vol] 137 mmol/L Normal 136-145 [facility] Comment on above: Performed By: #### C MP, CBC ####[address] [address] [place] Urea nitrogen [Mass/Vol] 13 mg/dL Normal 7-25 [facility] Comment on above: Performed By: #### C MP, CBC ####[address] [place] [address] angio chest PE protocolon 05-14-2023 CT angio chest PE protocol [facility] [address] [place] [address] [place] [id number] Scan Report Signed Patient: Cinthia Stanley MR#: [id number] 881 : 1960 Acct:[id number] Age/Sex: 62 / F ADM Date: 05/14/23 Loc: Room: [address] [place] [address] Type: ADM IN Attending Dr: Cassandra Andersen [...] Byrd DO 05/14/23801 Signed By: 05/14/23806 Normal [facility] B-Type Natriuretic Peptideon 05-13-2023 Natriuretic peptide B (Bld) [Mass/Vol] 25.0 pg/mL Normal 5-100 [facility] Comment on above: Result Comment: PERF ORMED BY: [facility] [address] [place] [address] PATHOLOGIST FAMILY INDEPENDENCE CASE MANAGER JASMEET LIN M.D. Performed By: #### B DRY CLEANING ATTENDANT #### [facility] [address] COVID-19 / Flu A/B / RSV [...] or Cepheid Disclaimer revoked sooner. PERFORMED BY: [address] [place] [address] PATHOLOGIST FAMILY INDEPENDENCE CASE MANAGER JASMEET LIN M.D. Normal [facility] Comment on above: Performed By: #### C OVID19 FLU RSV, CEPHEID NEG ####[place] [id number] [place] Cepheid COVID PCR Negativeon 05-13-2023 SARS-CoV-2 (COVID-19) RNA KRUNAL+probe Ql (Unsp spec) Negative Normal Negative [facility] Comment on above: Result Comment: This is a duplicate Cepheid Xpert Xpress CoV-2/Flu/RSV Plus RNA by RT-PCR result to be used for statistical tracking purpose only. PERFORMED BY: [address] [place] [address] PATHOLOGIST FAMILY INDEPENDENCE CASE MANAGER JASMEET LIN M.D. Performed By: #### C OVID19 FLU RSV, CEPHEID NEG ####[place] [id number] [place] Complete Blood Count Auto Di ffon 05-13-2023 Basophils (Bld) [#/Vol] 0.0 10*3/uL Normal 0.0-0.2 [facility] Comment on above: Result Comment: PERF ORMED BY: [place] [address] PATHOLOGIST FAMILY INDEPENDENCE CASE MANAGER JASMEET LIN M.D. Performed By: #### H S TROP, TSH3 wRFLX, CMP, CBC #### [address] Basophils/100 WBC (Bld) 0.4 % Normal . [facility] Comment on above: Performed By: #### H S TROP, TSH3 wRFLX, CMP, CBC #### [address] Eosinophils (Bld) [#/Vol] 0.0 10*3/uL Normal 0.0-0.45 [facility] Comment on above: Performed By: #### H S TROP, TSH3 wRFLX, CMP, CBC #### [address] Eosinophils/100 WBC (Bld) 0.1 % Normal . [facility] Comment on above: Performed By: #### H S TROP, TSH3 wRFLX, CMP, CBC #### [address] Erythrocyte distribution width (RBC) [Ratio] 13.5 % Normal 11.9-15.3 [facility] Comment on above: Performed By: #### H S TROP, TSH3 wRFLX, CMP, CBC #### [address] Hematocrit (Bld) [Volume fraction] 44.7 % Normal 34.0-46.4 [facility] Comment on above: Performed By: #### H S TROP, TSH3 wRFLX, CMP, CBC #### [address] Hemoglobin (Bld) [Mass/Vol] 14.9 g/dL Normal 11.8-15.4 [facility] Comment on above: Performed By: #### H S TROP, TSH3 wRFLX, CMP, CBC #### [address] Lymphocytes (Bld) [#/Vol] 1.4 10*3/uL Normal 1.00-4.8 [facility] Comment on above: Performed By: #### H S TROP, TSH3 wRFLX, CMP, CBC #### [address] Lymphocytes/100 WBC (Bld) 14.2 % Normal . [facility] Comment on above: Performed By: #### H S TROP, TSH3 wRFLX, CMP, CBC #### [address] MCH (RBC) [Entitic mass] 28.4 pg Normal 24.7-34.3 [facility] Comment on above: Performed By: #### H S TROP, TSH3 wRFLX, CMP, CBC #### [address] MCV (RBC) [Entitic vol] 85.1 fL Normal 80-100 [facility] Comment on above: Performed By: #### H S TROP, TSH3 wRFLX, CMP, CBC #### [address] Mean Corpuscular HGB Conc 33.4 g/dL Normal 32.0-35.0 [facility] Comment on above: Performed By: #### H S TROP, TSH3 wRFLX, CMP, CBC #### [address] Monocytes (Bld) [#/Vol] 0.8 10*3/uL Normal 0.0-0.8 [facility] Comment on above: Performed By: #### H S TROP, TSH3 wRFLX, CMP, CBC #### [address] Monocytes/100 WBC (Bld) 17.56 % Normal 0.00-20.00 [facility] Comment on above: Performed By: #### H S TROP, TSH3 wRFLX, CMP, CBC #### [address] Monocytes/100 WBC (Bld) 7.6 % Normal . [facility] Comment on above: Performed By: #### H S TROP, TSH3 wRFLX, CMP, CBC #### [address] [place] [address] [place] Neutrophils (Bld) [#/Vol] 7.9 10*3/uL High 1.8-7.7 [facility] Comment on above: Performed By: #### H S TROP, TSH3 wRFLX, CMP, CBC #### [address] Neutrophils/100 WBC (Bld) 77.7 % Normal . [facility] Comment on above: Performed By: #### H S TROP, TSH3 wRFLX, CMP, CBC #### [address] NRBC% 0.1 /100{WBC} Normal 0-0.5 [facility] Comment on above: Performed By: #### H S TROP, TSH3 wRFLX, CMP, CBC #### [address] Platelet mean volume (Bld) [Entitic vol] 7.4 fL Normal 6.3-10.7 [facility] Comment on above: Performed By: #### H S TROP, TSH3 wRFLX, CMP, CBC #### [address] Platelets (Bld) [#/Vol] 405 10*3/uL Normal 150-450 [facility] Comment on above: Performed By: #### H S TROP, TSH3 wRFLX, CMP, CBC #### [address] RBC (Bld) [#/Vol] 5.25 10*6/uL High 3.60-5.00 [facility] Comment on above: Performed By: #### H S TROP, TSH3 wRFLX, CMP, CBC #### [place] [address] [place] WBC (Bld) [#/Vol] 10.2 10*3/uL Normal 3.8-11.6 [facility] Comment on above: Performed By: #### H S TROP, TSH3 wRFLX, CMP, CBC #### [facility] [address] Comprehensive Metabolic Pane [place] 05-13-2023 Albumin [Mass/Vol] 4.2 g/dL Normal 3.5-5.7 [facility] Comment on above: Performed By: #### H S TROP, TSH3 wRFLX, CMP, CBC #### [facility] [address] [place] [address] Albumin/Globulin [Mass ratio] 1.2 {ratio} Normal [facility] Comment on above: Performed By: #### H S TROP, TSH3 wRFLX, CMP, CBC #### [facility] [address] [place] [address] ALP [Catalytic activity/Vol] 79 U/L Normal 34-104 [facility] Comment on above: Performed By: #### H S TROP, TSH3 wRFLX, CMP, CBC #### [address] ALT [Catalytic activity/Vol] 15 U/L Normal 7-52 [facility] Comment on above: Performed By: #### H S TROP, TSH3 wRFLX, CMP, CBC #### [address] Anion gap [Moles/Vol] 12.3 mmol/L Normal 6.0-15.0 [facility] Comment on above: Performed By: #### H S TROP, TSH3 wRFLX, CMP, CBC #### [facility] [address] [place] [address] AST [Catalytic activity/Vol] 17 U/L Normal 13-39 [facility] Comment on above: Performed By: #### H S TROP, TSH3 wRFLX, CMP, CBC #### [facility] [address] [place] [address] Bilirubin [Mass/Vol] 0.3 mg/dL Normal 0.3-1.0 [facility] Comment on above: Performed By: #### H S TROP, TSH3 wRFLX, CMP, CBC #### [address] Calcium [Mass/Vol] 10.0 mg/dL Normal 8.6-10.3 [facility] Comment on above: Performed By: #### H S TROP, TSH3 wRFLX, CMP, CBC #### [facility] [address] Chloride [Moles/Vol] 89 mmol/L Low 98-107 [facility] Comment on above: Performed By: #### H S TROP, TSH3 wRFLX, CMP, CBC #### [facility] [address] CO2 [Moles/Vol] 41.7 mmol/L High 21.0-31.0 [facility] Comment on above: Performed By: #### H S TROP, TSH3 wRFLX, CMP, CBC #### [address] Creatinine [Mass/Vol] 0.47 mg/dL Low 0.60-1.20 [facility] Comment on above: Performed By: #### H S TROP, TSH3 wRFLX, CMP, CBC #### [facility] [address] [place] [address] [place] Creatinine Clr Calc Pharmacy 80.11 [facility] Comment on above: Result Comment: PERF ORMED BY: [place] [address] PATHOLOGIST FAMILY INDEPENDENCE CASE MANAGER JASMEET LIN M.D. Performed By: #### H S TROP, TSH3 wRFLX, CMP, CBC #### [facility] [address] [place] [address] [place] GFR/1.73 sq M.predicted MDRD (S/P/Bld) [Vol rate/Area] mL/min/{1.73_m2} [facility] Comment on above: Performed By: #### H S TROP, TSH3 wRFLX, CMP, CBC #### [facility] [address] [place] [address] [place] Globulin (S) [Mass/Vol] 3.5 g/dL [facility] Comment on above: Performed By: #### H S TROP, TSH3 wRFLX, CMP, CBC #### [facility] [address] [place] [address] [place] Glucose [Mass/Vol] 104 mg/dL High 70-100 [facility] Comment on above: Result Comment: [place] Glucose Reference Range is dependent on time and content of last meal. Glucose of more than 200 mg/dL in a nonstressed, ambulatory subject supports the diagnosis of Diabetes Mellitus. ADA recommended reference range Performed By: #### H S TROP, TSH3 wRFLX, CMP, CBC #### [facility] [address] Potassium [Moles/Vol] 4.0 mmol/L Normal 3.5-5.1 [facility] Comment on above: Performed By: #### H S TROP, TSH3 wRFLX, CMP, CBC #### [address] Protein [Mass/Vol] 7.7 g/dL Normal 6.4-8.9 [facility] Comment on above: Performed By: #### H S TROP, TSH3 wRFLX, CMP, CBC #### [facility] [address] [place] [address] [place] Sodium [Moles/Vol] 139 mmol/L Normal 136-145 [facility] Comment on above: Performed By: #### H S TROP, TSH3 wRFLX, CMP, CBC #### [facility] [address] [place] [address] [place] Urea nitrogen [Mass/Vol] 13 mg/dL Normal 7-25 [facility] Comment on above: Performed By: #### H S TROP, TSH3 wRFLX, CMP, CBC #### [facility] [address] [place] [address] [place] ECG 12 lead ECGon 05-13-2023 ECG 12 lead ECG [facility] [address] [place] [address] [place] [address] Electrocardiograph Report Signed Patient: Cinthia Stanley MR#: [id number] 881 : 1960 Acct:[id number] Age/Sex: 62 / F ADM Date: 05/13/23 [...] variant artifact Confirmed by Kd Simpson DO ([id number]) on 05/13/2023 7:17:32 PM Referred By: Electronically Signed By:Kd Simpson DO Transcribed By: MUS Signed By Kd Simpson DO 1916 Normal [facility] Thyroid Stim Hormone w/Rflxo n 05-13-2023 Thyroid Stim Hormone w/Rflx 0.89 u[iU]/mL Normal 0.45-5.33 [facility] Comment on above: Result Comment: PERF ORMED BY: [place] [address] PATHOLOGIST FAMILY INDEPENDENCE CASE MANAGER JASMEET LIN M.D. Performed By: #### H S TROP, TSH3 wRFLX, CMP, CBC #### [facility] [address] [place] [address] [place] Troponin I High Sensitivityo n 05-13-2023 Troponin I High Sensitivity 3.4 pg/mL Normal 0.0-15.0 [facility] Comment on above: Result Comment: PERF ORMED BY: [place] [address] PATHOLOGIST FAMILY INDEPENDENCE CASE MANAGER JASMEET LIN M.D. Performed By: #### H S TROP #### [facility] [address] [place] [address] [place] Troponin I High Sensitivity 3.9 pg/mL Normal 0.0-15.0 [facility] Comment on above: Result Comment: PERF ORMED BY: [place] [address] PATHOLOGIST FAMILY INDEPENDENCE CASE MANAGER JASMEET LIN M.D. Performed By: #### H S TROP, TSH3 wRFLX, CMP, CBC #### [address] XR chest 2V*on 05-13-2023 XR chest 2V* [facility] [place] [address] [place] [address] XRay Report Signed Patient: Cinthia Stanley MR#: [id number] 881 : 1960 Acct:[id number] Age/Sex: 62 / F ADM Date: 05/13/23 Loc: ER Room: Type: [facility] ER Attending Dr: Copies to: Stacia Garcia [...] Wong Byrd M.D.05/13/2023 8:53 PM Dictation Location: [place] [address] Transcribed By: MARCELLE 05/13/232052 Dictated By: Wong Byrd DO 05/13/232051 Signed By: 05/13/232052 Normal [facility] CNOVon 11-27-2022 CNOV Office Visit (RADTSA ) CINTHIA STANLEY ([id number]) 1960 F Date Time Provider Department 11/27/22 [...] COPD, who is diagnosed with Stage IA3, [id number], non-small cell lung cancer arising from a [...] been following up with pulmonary therapy at [facility] and with her line maintenance supervisor Dr. Driver and using her nebulizers. She [...] COPD, who is diagnosed with Stage IA3, [id number], non-small cell lung cancer arising from a [...] the chest. She will follow with her line maintenance supervisor Dr. Driver to optimize her respiratory function [...] total o (more content not included)... [facility] (HEMTSA) CINTHIA STANLEY ([id number]) 1960 F Date Time Provider Department 11/18/22 CED VICTORIA During your visit today, we recorded the following information about you: Ced Victoria RN 11/18/2022 1:43 PM Signed Pt called for CT 11/19/22. She reports CT completed 09/24/22 at [facility]. CT chest verified and will send images/report. LORENZO: Would you like to cancel CT? Please advise LUCIE Baer Saju, MD 11/18/2022 2:11 PM Signed Yes, please cancel CT tomorrow. In addition to the images, please request any office notes from Dr. Bass as well as her line maintenance supervisor. Thanks! Ced Park RN 11/18/2022 2:50 PM Signed Pt notified, CT canceled. Katerina working on records from Dr Bass and Dr Driver. Images/report being pushed from [facility]. LUCIE Baer Ariana, LPN 11/18/2022 3:33 PM [...] Encounter Status:Closed by CED VICTORIA on 11/19/22 [facility] CULTURE BLOODon 09-07-2022 Microscopic examination of [...] F Trimethoprim/Sulfameth oxazole 20 S F Normal [facility] Comment on above: Performed By: #### B [id number] #### [facility] [address] [place] [address] Dr. Geri Pradhan CBC AUTO DIFFon 09-05-2022 BASO # 0.0 103/ul Normal 0.0-0.1 [facility] Comment on above: Performed By: #### C BC #### [facility] [address] [place] [address] Dr. Geri Pradhan Basophils/100 WBC (Bld) 0.2 % Normal 0.2-2.0 [facility] Comment on above: Performed By: #### C BC #### [facility] [address] [place] [address] Dr. Geri Pradhan EO # 0.0 103/ul Normal 0.0-0.7 [facility] Comment on above: Performed By: #### C BC #### [facility] [address] [place] [address] Dr. Geri Pradhan Eosinophils/100 WBC (Bld) 0.0 % Critically low 0.9-7.0 [facility] Comment on above: Performed By: #### C BC #### [facility] [address] [place] [address] Dr. Geri Pradhan Erythrocyte distribution width (RBC) [Ratio] 13.8 % Normal 11.0-15.0 [facility] Comment on above: Performed By: #### C BC #### [facility] [address] [place] [address] Dr. Geri Pradhan Hematocrit (Bld) [Volume fraction] 38.8 % Normal 36.0-48.0 [facility] Comment on above: Performed By: #### C BC #### [facility] [address] [place] [address] Dr. Geri Pradhan Hemoglobin (Bld) [Mass/Vol] 11.7 g/dL Critically low 12.0-16.0 [facility] Comment on above: Performed By: #### C BC #### [facility] [address] [place] [address] Dr. Geri Pradhan IG # 0.27 10e3/ul Critically high 0.00-0.03 [facility] Comment on above: Performed By: #### C BC #### [facility] [address] [place] [address] Dr. Geri Pradhan IG % 2.9 % Critically high 0.0-0.5 [facility] Comment on above: Performed By: #### C BC #### [facility] [address] [place] [address] Dr. Geri Pradhan LYMPH # 0.4 103/ul Critically low 1.2-3.8 [facility] Comment on above: Performed By: #### C BC #### [facility] [address] [place] [address] Dr. Geri Pradhan Lymphocytes/100 WBC (Bld) 4.4 % Critically low 20.5-60.0 [facility] Comment on above: Performed By: #### C BC #### [facility] [address] [place] [address] Dr. Geri Pradhan MANUAL DIFF REQ NO Normal [facility] Comment on above: Performed By: #### C BC #### [facility] [address] [place] [address] Dr. Geri Pradhan MCH (RBC) [Entitic mass] 26.8 pg Normal 26.7-34.0 [facility] Comment on above: Performed By: #### C BC #### [facility] [address] [place] [address] Dr. Geri Pradhan MCHC (RBC) [Mass/Vol] 30.2 g/dL Normal 29.9-35.2 [facility] Comment on above: Performed By: #### C BC #### [facility] [address] [place] [address] Dr. Geri Pradhan MCV (RBC) [Entitic vol] 88.8 fL Normal 81.0-99.0 [facility] Comment on above: Performed By: #### C BC #### [facility] [address] [address] [address] Geri Pradhan MONO # 0.3 103/ul Normal 0.3-0.8 [facility] Comment on above: Performed By: #### C BC #### [facility] [address] [address] [address] Geri Pradhan Monocytes/100 WBC (Bld) 3.6 % Normal 1.7-12.0 [facility] Comment on above: Performed By: #### C BC #### [facility] [address] [place] [address] Dr. Geri Pradhan NEUT # 8.2 103/ul Critically high 1.4-6.5 [facility] Comment on above: Performed By: #### C BC #### [facility] [address] [place] [address] Dr. Geri Pradhan Neutrophils/100 WBC (Bld) 88.9 % Critically high 43.0-75.0 [facility] Comment on above: Performed By: #### C BC #### [facility] [address] [place] [address] Dr. Geri Pradhan Platelet mean volume (Bld) [Entitic vol] 9.1 fL Critically low 9.5-13.5 [facility] Comment on above: Performed By: #### C BC #### [facility] [address] [place] [address] Dr. Geri Pradhan PLT 314 103/ul Normal 150-450 [facility] Comment on above: Performed By: #### C BC #### [facility] [address] [place] [address] Dr. Geri Pradhan RBC 4.37 106/ul Normal 4.20-5.40 [facility] Comment on above: Performed By: #### C BC #### [facility] [address] [place] [address] Dr. Geri Pradhan WBC 9.2 103/ul Normal 4.0-11.0 [facility] Comment on above: Performed By: #### C BC #### [facility] [address] [address] [address] Geri Pradhan PROF 14(COMP METB)on 023 Albumin [Mass/Vol] 2.7 g/dL Critically low 3.4-5.0 [facility] Comment on above: Performed By: #### Gerry INGRAM, CMP #### [facility] [address] [address] [address] Geri Pradhan Albumin/Globulin [Mass ratio] 0.7 {ratio} Normal [facility] Comment on above: Performed By: #### Gerry INGRAM, CMP #### [facility] [address] [address] [address] Geri Pradhan ALP [Catalytic activity/Vol] 65 U/L Normal 46-116 [facility] Comment on above: Performed By: #### Gerry INGRAM, CMP #### [facility] [address] [address] [address] Geri Pradhan ALT [Catalytic activity/Vol] 23 U/L Normal 14-59 [facility] Comment on above: Performed By: #### Gerry INGRAM, CMP #### [facility] [address] [address] [address] Geri Pradhan Anion gap [Moles/Vol] 2.0 mmol/L Normal [facility] Comment on above: Performed By: #### Gerry INGRAM, CMP #### [facility] [address] [address] [address] Geri Pradhan AST [Catalytic activity/Vol] 17 U/L Normal 15-37 [facility] Comment on above: Performed By: #### Gerry INGRAM, CMP #### [facility] [address] [address] [address] Geri Pradhan Bilirubin [Mass/Vol] 0.1 mg/dL Critically low 0.2-1.0 [facility] Comment on above: Performed By: #### Gerry INGRAM, CMP #### [facility] [address] [address] [address] Geri Pradhan Calcium [Mass/Vol] 9.0 mg/dL Normal 8.5-10.1 [facility] Comment on above: Performed By: #### Gerry INGRAM, CMP #### [facility] [address] [address] [address] Geri Pradhan Chloride [Moles/Vol] 99 mmol/L Normal 98-107 [facility] Comment on above: Performed By: #### Gerry INGRAM, CMP #### [facility] [address] [address] [address] Geri Pradhan CO2 [Moles/Vol] 45.3 mmol/L Critically high 21.0-32.0 [facility] Comment on above: Performed By: #### Gerry INGRAM, CMP #### [facility] [address] [place] [address] Dr. Geri Pradhan Creatinine [Mass/Vol] 0.50 mg/dL Critically low 0.55-1.02 [facility] Comment on above: Performed By: #### Gerry INGRAM, CMP #### [facility] [address] [address] [address] Geri Pradhan EGFR-AF ESTONIAN >60 Normal >=60 [facility] Comment on above: Performed By: #### Gerry INGRAM, CMP #### [facility] [address] [place] [address] Dr. Geri Pradhan EGFR-NON AF ESTONIAN >60 Normal >=60 [facility] Comment on above: Performed By: #### Gerry INGRAM, CMP #### [facility] [address] [place] [address] Dr. Geri Pradhan Globulin (S) [Mass/Vol] 3.7 g/dL Normal [facility] Comment on above: Performed By: #### Gerry INGRAM, CMP #### [facility] [address] [address] [address] Geri Pradhan Glucose [Mass/Vol] 180 mg/dL Critically high 74-[address] [facility] Comment on above: Performed By: #### Gerry INGRAM, CMP #### [facility] [address] [place] [address] Dr. Geri Pradhan Potassium [Moles/Vol] 4.3 mmol/L Normal 3.5-5.1 [facility] Comment on above: Performed By: #### Gerry INGRAM, CMP #### [facility] [address] [place] [address] Dr. Geri Pradhan Protein [Mass/Vol] 6.4 g/dL Normal 6.4-8.2 [facility] Comment on above: Performed By: #### Gerry INGRAM, CMP #### [facility] [address] [place] [address] Dr. Geri Pradhan Sodium [Moles/Vol] 142 mmol/L Normal 136-145 [facility] Comment on above: Performed By: #### Gerry INGRAM CMP #### [facility] [address] [place] [address] Dr. Geri Pradhan Urea nitrogen [Mass/Vol] 13.0 mg/dL Normal 7.0-18.0 [facility] Comment on above: Performed By: #### Gerry INGRAM CMP #### [facility] [address] [place] [address] Dr. Geri Pradhan Urea nitrogen/Creatinine [Mass ratio] 26.0 mg/mg Normal [facility] Comment on above: Performed By: #### Gerry INGRAM CMP #### [facility] [address] [place] [address] Dr. Geri Pradhan THEOPHYLLINEon 09-05-2022 THEOPHYLLINE <2.0 Critically low 10.0-20.0 [facility] Comment on above: Performed By: #### Gerry INGRAM, CMP #### [facility] [address] [place] [address] Dr. Geri Pradhan CBC AUTO DIFFon 09-04-2022 BASO # 0.0 103/ul Normal 0.0-0.1 [facility] Comment on above: Performed By: #### R SPLUS #### [facility] [address] [place] [address] Dr. Geri Pradhan Basophils/100 WBC (Bld) 0.1 % Critically low 0.2-2.0 [facility] Comment on above: Performed By: #### Araseli SPLUS #### [facility] [address] [place], [place] [address] Dr. Geri Pradhan EO # 0.0 103/ul Normal 0.0-0.7 [facility] Comment on above: Performed By: #### R SPLUS #### [facility] [address] [place] [address] Dr. Geri Pradhan Eosinophils/100 WBC (Bld) 0.0 % Critically low 0.9-7.0 [facility] Comment on above: Performed By: #### R SPLUS #### [facility] [address] [place] [address] Dr. Geri Pradhan Erythrocyte distribution width (RBC) [Ratio] 13.4 % Normal 11.0-15.0 [facility] Comment on above: Performed By: #### R SPLUS #### [facility] [address] [place] [address] Dr. Geri Pradhan Hematocrit (Bld) [Volume fraction] 42.8 % Normal 36.0-48.0 [facility] Comment on above: Performed By: #### R SPLUS #### [facility] [address] [place] [address] Dr. Geri Pradhan Hemoglobin (Bld) [Mass/Vol] 12.8 g/dL Normal 12.0-16.0 [facility] Comment on above: Performed By: #### R SPLUS #### [facility] [address] [place] [address] Dr. Geri Pradhan IG # 0.25 10e3/ul Critically high 0.00-0.03 [facility] Comment on above: Performed By: #### R SPLUS #### [facility] [address] [place] [address] Dr. Geri Pradhan IG % 2.0 % Critically high 0.0-0.5 [facility] Comment on above: Performed By: #### R SPLUS #### [facility] [address] [place] [address] Dr. Geri Pradhan LYMPH # 0.4 103/ul Critically low 1.2-3.8 [facility] Comment on above: Performed By: #### R SPLUS #### [facility] [address] [address] [address] Geri Pradhan Lymphocytes/100 WBC (Bld) 3.6 % Critically low 20.5-60.0 [facility] Comment on above: Performed By: #### R SPLUS #### [facility] [address] [address] [address] Geri Pradhan MANUAL DIFF REQ NO Normal [facility] Comment on above: Performed By: #### R SPLUS #### [facility] [address] [address] [address] Geri Pradhan MCH (RBC) [Entitic mass] 26.8 pg Normal 26.7-34.0 [facility] Comment on above: Performed By: #### R SPLUS #### [facility] [address] [place] [address] Dr. Geri Pradhan MCHC (RBC) [Mass/Vol] 29.9 g/dL Normal 29.9-35.2 [facility] Comment on above: Performed By: #### R SPLUS #### [facility] [address] [place] [address] Dr. Geri Pradhan MCV (RBC) [Entitic vol] 89.5 fL Normal 81.0-99.0 [facility] Comment on above: Performed By: #### R SPLUS #### [facility] [address] [place] [address] Dr. Geri Pradhan MONO # 0.2 103/ul Critically low 0.3-0.8 [facility] Comment on above: Performed By: #### R SPLUS #### [facility] [address] [place] [address] Dr. Geri Pradhan Monocytes/100 WBC (Bld) 1.9 % Normal 1.7-12.0 [facility] Comment on above: Performed By: #### R SPLUS #### [facility] [address] [place] [address] Dr. Geri Pradhan NEUT # 11.4 103/ul Critically high 1.4-6.5 [facility] Comment on above: Performed By: #### R SPLUS #### [facility] [address] [address] [address] Geri Pradhan Neutrophils/100 WBC (Bld) 92.4 % Critically high 43.0-75.0 [facility] Comment on above: Performed By: #### R SPLUS #### [facility] [address] [address] [address] Geri Pradhan Platelet mean volume (Bld) [Entitic vol] 8.9 fL Critically low 9.5-13.5 [facility] Comment on above: Performed By: #### R SPLUS #### [facility] [address] [address] [address] Geri Pradhan PLT 350 103/ul Normal 150-450 [facility] Comment on above: Performed By: #### R SPLUS #### [facility] [address] [address] [address] Geri Pradhan RBC 4.78 106/ul Normal 4.20-5.40 [facility] Comment on above: Performed By: #### R SPLUS #### [facility] [address] [address] [address] Geri Pradhan WBC 12.3 103/ul Critically high 4.0-11.0 [facility] Comment on above: Performed By: #### R SPLUS #### [facility] [address] [address] [address] Geri Pradhan POINT OF CARE GLUCOSEon 08-12 Glucose [Mass/Vol] 142 mg/dL Critically high 74-[address] [facility] Comment on above: Performed By: #### P OCGLUC #### [facility] [address] [address] [address] Geri Pradhan Glucose [Mass/Vol] 198 mg/dL Critically high 74-[address] [facility] Comment on above: Performed By: #### Gerry INGRAM CMP #### [facility] [address] [address] [address] Geri Pradhan Glucose [Mass/Vol] 147 mg/dL Critically high 74-[address] [facility] Comment on above: Performed By: #### Gerry INGRAM CMP #### [facility] [address] [address] [address] Geri Pradhan PROF 14(COMP METB)on 023 Albumin [Mass/Vol] 2.9 g/dL Critically low 3.4-5.0 [facility] Comment on above: Performed By: #### Gerry INGRAM, CMP #### [facility] [address] [address] [address] Grei Pradhan Albumin/Globulin [Mass ratio] 0.7 {ratio} Normal [facility] Comment on above: Performed By: #### Gerry INGRAM, CMP #### [facility] [address] [address] [address] Geri Pradhan ALP [Catalytic activity/Vol] 73 U/L Normal 46-116 [facility] Comment on above: Performed By: #### Gerry INGRAM, CMP #### [facility] [address] [address] [address] Geri Pradhan ALT [Catalytic activity/Vol] 24 U/L Normal 14-59 [facility] Comment on above: Performed By: #### Gerry INGRAM, CMP #### [facility] [address] [address] [address] Geri Pradhan Anion gap [Moles/Vol] 3.2 mmol/L Normal [facility] Comment on above: Performed By: #### Gerry INGRAM, CMP #### [facility] [address] [address] [address] Geri Pradhan AST [Catalytic activity/Vol] 17 U/L Normal 15-37 [facility] Comment on above: Performed By: #### Gerry INGRAM, CMP #### [facility] [address] [address] [address] Geri Pradhan Bilirubin [Mass/Vol] 0.1 mg/dL Critically low 0.2-1.0 [facility] Comment on above: Performed By: #### Gerry INGRAM, CMP #### [facility] [address] [address] [address] Geri Pradhan Calcium [Mass/Vol] 9.4 mg/dL Normal 8.5-10.1 [facility] Comment on above: Performed By: #### Gerry INGRAM, CMP #### [facility] [address] [address] [address] Geri Pradhan Chloride [Moles/Vol] 100 mmol/L Normal 98-107 [facility] Comment on above: Performed By: #### Gerry INGRAM, CMP #### [facility] [address] [address] [address] Geri Pradhan CO2 [Moles/Vol] 43.2 mmol/L Critically high 21.0-32.0 [facility] Comment on above: Performed By: #### Gerry INGRAM, CMP #### [facility] [address] [address] [address] Geri Pradhan Creatinine [Mass/Vol] 0.52 mg/dL Critically low 0.55-1.02 [facility] Comment on above: Performed By: #### Gerry INGRAM, CMP #### [facility] [address] [address] [address] Geri Pradhan EGFR-AF ESTONIAN >60 Normal >=60 [facility] Comment on above: Performed By: #### Gerry INGRAM, CMP #### [facility] [address] [address] [address] Geri Pradhan EGFR-NON AF ESTONIAN >60 Normal >=60 [facility] Comment on above: Performed By: #### Gerry INGRAM, CMP #### [facility] [address] [address] [address] Geri Pradhan Globulin (S) [Mass/Vol] 4.2 g/dL Normal [facility] Comment on above: Performed By: #### Gerry INGRAM, CMP #### [facility] [address] [address] [address] Geri Pradhan Glucose [Mass/Vol] 138 mg/dL Critically high 74-[address] [facility] Comment on above: Performed By: #### Gerry INGRAM, CMP #### [facility] [address] [address] [address] Geri Pradhan Potassium [Moles/Vol] 4.4 mmol/L Normal 3.5-5.1 [facility] Comment on above: Performed By: #### T JUAN JOSE, CMP #### [facility] [address] [address] [address] Geri Pradhan Protein [Mass/Vol] 7.1 g/dL Normal 6.4-8.2 [facility] Comment on above: Performed By: #### T JUAN JOSE, CMP #### [facility] [address] [place] [address] Dr. Geri Pradhan Sodium [Moles/Vol] 142 mmol/L Normal 136-145 [facility] Comment on above: Performed By: #### T JUAN JOSE, CMP #### [facility] [address] [place] [address] Dr. Geri Pradhan Urea nitrogen [Mass/Vol] 15.0 mg/dL Normal 7.0-18.0 [facility] Comment on above: Performed By: #### Gerry INGRAM, CMP #### [facility] [address] [place] [address] Dr. Geri Pradhan Urea nitrogen/Creatinine [Mass ratio] 28.8 mg/mg Normal [facility] Comment on above: Performed By: #### Gerry INGRAM, CMP #### [facility] [address] [place] [address] Dr. Geri Pradhan RESPIRATORY PANEL PLUSon Adenovirus Not detected Normal NOT DETECTED [facility] Comment on above: Performed By: #### R SPLUS #### [facility] [address] [place] [address] Dr. Geri Joe. Parapertusis Not detected Normal NOT DETECTED [facility] Comment on above: Performed By: #### R SPLUS #### [facility] [address] [place] [address] Dr. Geri Bourne Pertussis Not detected Normal NOT DETECTED [facility] Comment on above: Performed By: #### R SPLUS #### [facility] [address] [place] [address] Dr. Geri Pradhan Chlamydia Pneumoniae Not detected Normal NOT DETECTED [facility] Comment on above: Performed By: #### R SPLUS #### [facility] [address] [place] [address] Dr. Geri Pradhan Coronavirus 229E Not detected Normal NOT DETECTED [facility] Comment on above: Performed By: #### R SPLUS #### [facility] [address] [place] [address] Dr. Geri Pradhan Coronavirus HKU1 Not detected Normal NOT DETECTED [facility] Comment on above: Performed By: #### R SPLUS #### [facility] [address] [place] [address] Dr. Geri Pradhan Coronavirus NL63 Not detected Normal NOT DETECTED [facility] Comment on above: Performed By: #### R SPLUS #### [facility] [address] [place] [address] Dr. Geri Pradhan Coronavirus OC43 Not detected Normal NOT DETECTED [facility] Comment on above: Performed By: #### R SPLUS #### [facility] [address] [place] [address] Dr. Geri Pradhan Influenza A H1 Not detected Normal NOT DETECTED [facility] Comment on above: Performed By: #### R SPLUS #### [facility] [address] [place] [address] Dr. Geri Pradhan Influenza A H1 2009 Not detected Normal NOT DETECTED [facility] Comment on above: Performed By: #### R SPLUS #### [facility] [address] [place] [address] Dr. Geri Pradhan Influenza A H3 Not detected Normal NOT DETECTED [facility] Comment on above: Performed By: #### R SPLUS #### [facility] [address] [place] [address] Dr. Geri Pradhan Influenza B Not detected Normal NOT DETECTED [facility] Comment on above: Performed By: #### R SPLUS #### [facility] [address] [place] [address] Dr. Geri Pradhan Metapneumovirus Not detected Normal NOT DETECTED [facility] Comment on above: Performed By: #### R SPLUS #### [facility] [address] [place] [address] Dr. Geri Pradhan Mycoplas. Pneumoniae Not detected Normal NOT DETECTED [facility] Comment on above: Performed By: #### R SPLUS #### [facility] [address] [place] [address] Dr. Geri Pradhan Parainfluenza 1 Not detected Normal NOT DETECTED [facility] Comment on above: Performed By: #### R SPLUS #### [facility] [address] [place] [address] Dr. Geri Pradhan Parainfluenza 2 Not detected Normal NOT DETECTED [facility] Comment on above: Performed By: #### R SPLUS #### [facility] [address] [place] [address] Dr. Geri Pradhan Parainfluenza 3 Detected Abnormal NOT DETECTED The [facility] Comment on above: Performed By: #### R SPLUS #### [facility] [address] [place] [address] Dr. Geri Pradhan Parainfluenza 4 Not detected Normal NOT DETECTED [facility] Comment on above: Performed By: #### R SPLUS #### [facility] [address] [place] [address] Dr. Geri Pradhan Rhino/Enterovirus Not detected Normal NOT DETECTED [facility] Comment on above: Performed By: #### R SPLUS #### [facility] [address] [place] [address] Dr. Geri Pradhan RP2 Header 1 RESPIRATORY PANEL: VIRUSES Normal [facility] Comment on above: Performed By: #### R SPLUS #### [facility] [address] [place] [address] Dr. Geri Pradhan RP2 Header 2 RESPIRATORY PANEL: BACTERIA Normal [facility] Comment on above: Performed By: #### R SPLUS #### [facility] [address] [place] [address] Dr. Geri Pradhan RSV Not detected Normal NOT DETECTED [facility] Comment on above: Performed By: #### R SPLUS #### [facility] [address] [place] [address] Dr. Geri Pradhan SARS-CoV-2 (COVID-19) RNA KRUNAL+probe Ql (Unsp spec) Not detected Normal NOT DETECTED [facility] Comment on above: Performed By: #### R SPLUS #### [facility] [address] [place] [address] Dr. Geri Pradhan THEOPHYLLINEon 09-04-2022 THEOPHYLLINE <2.0 Critically low 10.0-20.0 [facility] Comment on above: Performed By: #### T JUAN JOSE, CMP #### [facility] [address] [place] [address] Dr. Geri Pradhan CBC AUTO DIFFon 09-03-2022 BASO # 0.0 103/ul Normal 0.0-0.1 [facility] Comment on above: Performed By: #### P OCGLUC #### [facility] [address] [place] [address] Dr. Geri Pradhan Basophils/100 WBC (Bld) 0.1 % Critically low 0.2-2.0 [facility] Comment on above: Performed By: #### P OCGLUC #### [facility] [address] [place] [address] Dr. Geri Pradhan EO # 0.0 103/ul Normal 0.0-0.7 [facility] Comment on above: Performed By: #### P OCGLUC #### [facility] [address] [place] [address] Dr. Geri Pradhan Eosinophils/100 WBC (Bld) 0.0 % Critically low 0.9-7.0 [facility] Comment on above: Performed By: #### P OCGLUC #### [facility] [address] [place] [address] Dr. Geri Pradhan Erythrocyte distribution width (RBC) [Ratio] 13.0 % Normal 11.0-15.0 [facility] Comment on above: Performed By: #### P OCGLUC #### [facility] [address] [place] [address] Dr. Geri Pradhan Hematocrit (Bld) [Volume fraction] 42.1 % Normal 36.0-48.0 [facility] Comment on above: Performed By: #### P OCGLUC #### [facility] [address] [address] [address] Geri Pradhan Hemoglobin (Bld) [Mass/Vol] 12.3 g/dL Normal 12.0-16.0 [facility] Comment on above: Performed By: #### P OCGLUC #### [facility] [address] [address] [address] Geri Pradhan IG # 0.13 10e3/ul Critically high 0.00-0.03 [facility] Comment on above: Performed By: #### P OCGLUC #### [facility] [address] [address] [address] Geri Pradhan IG % 1.2 % Critically high 0.0-0.5 [facility] Comment on above: Performed By: #### P OCGLUC #### [facility] [address] [place] [address] Dr. Geri Pradhan LYMPH # 0.6 103/ul Critically low 1.2-3.8 [facility] Comment on above: Performed By: #### P OCGLUC #### [facility] [address] [address] [address] Geri Pradhan Lymphocytes/100 WBC (Bld) 6.0 % Critically low 20.5-60.0 [facility] Comment on above: Performed By: #### P OCGLUC #### [facility] [address] [place] [address] Dr. Geri Pradhan MANUAL DIFF REQ NO Normal [facility] Comment on above: Performed By: #### P OCGLUC #### [facility] [address] [address] [address] Geri Pradhan MCH (RBC) [Entitic mass] 26.0 pg Critically low 26.7-34.0 [facility] Comment on above: Performed By: #### P OCGLUC #### [facility] [address] [address] [address] Geri Pradhan MCHC (RBC) [Mass/Vol] 29.2 g/dL Critically low 29.9-35.2 [facility] Comment on above: Performed By: #### P OCGLUC #### [facility] [address] [address] [address] Geri Pradhan MCV (RBC) [Entitic vol] 89.0 fL Normal 81.0-99.0 [facility] Comment on above: Performed By: #### P OCGLUC #### [facility] [address] [address] [address] Geri Pradhan MONO # 0.2 103/ul Critically low 0.3-0.8 [facility] Comment on above: Performed By: #### P OCGLUC #### [facility] [address] [address] [address] Geri Pradhan Monocytes/100 WBC (Bld) 2.0 % Normal 1.7-12.0 [facility] Comment on above: Performed By: #### P OCGLUC #### [facility] [address] [place] [address] Dr. Geri Pradhan NEUT # 9.6 103/ul Critically high 1.4-6.5 [facility] Comment on above: Performed By: #### P OCGLUC #### [facility] [address] [place] [address] Dr. Geri Pradhan Neutrophils/100 WBC (Bld) 90.7 % Critically high 43.0-75.0 [facility] Comment on above: Performed By: #### P OCGLUC #### [facility] [address] [place] [address] Dr. Geri Pradhan Platelet mean volume (Bld) [Entitic vol] 9.1 fL Critically low 9.5-13.5 [facility] Comment on above: Performed By: #### P OCGLUC #### [facility] [address] [place] [address] Dr. Geri Pradhan PLT 302 103/ul Normal 150-450 [facility] Comment on above: Performed By: #### P OCGLUC #### [facility] [address] [place] [address] Dr. Geri Pradhan RBC 4.73 106/ul Normal 4.20-5.40 [facility] Comment on above: Performed By: #### P OCGLUC #### [facility] [address] [address] [address] Geri Pradhan WBC 10.6 103/ul Normal 4.0-11.0 [facility] Comment on above: Performed By: #### P OCGLUC #### [facility] [address] [address] [address] Geri Pradhan POINT OF CARE GLUCOSEon 08-12 Glucose [Mass/Vol] 130 mg/dL Critically high [address] [place] [address] Comment on above: Performed By: #### T JUAN JOSE, CMP #### [facility] [address] [address] [address] Geri Pradhan Glucose [Mass/Vol] 217 mg/dL Critically high [address] [place] [address] Comment on above: Performed By: #### T JUAN JOSE, CMP #### [facility] [address] [address] [address] Geri Pradhan Glucose [Mass/Vol] 327 mg/dL Critically high [address] [place] [address] Comment on above: Performed By: #### C VDTBH #### [facility] [address] [address] [address] Geri Pradhan Glucose [Mass/Vol] 146 mg/dL Critically high [address] [place] [address] Comment on above: Performed By: #### T JUAN JOSE, CMP #### [facility] [address] [address] [address] Geri Pradhan Glucose [Mass/Vol] 174 mg/dL Critically high [address] [place] [address] Comment on above: Performed By: #### T JUAN JOSE, CMP #### [facility] [address] [address] [address] Geri Pradhan PROF 14(COMP METB)on 023 Albumin [Mass/Vol] 2.9 g/dL Critically low 3.4-5.0 [facility] Comment on above: Performed By: #### P OCGLUC #### [facility] [address] [address] [address] Geri Pradhan Albumin/Globulin [Mass ratio] 0.7 {ratio} Normal [facility] Comment on above: Performed By: #### P OCGLUC #### [facility] [address] [address] [address] Geri Pradhan ALP [Catalytic activity/Vol] 74 U/L Normal 46-116 [facility] Comment on above: Performed By: #### P OCGLUC #### [facility] [address] [address] [address] Geri Pradhan ALT [Catalytic activity/Vol] 21 U/L Normal 14-59 [facility] Comment on above: Performed By: #### P OCGLUC #### [facility] [address] [address] [address] Geri Pradhan Anion gap [Moles/Vol] 4.4 mmol/L Normal [facility] Comment on above: Performed By: #### P OCGLUC #### [facility] [address] [place] [address] Dr. Geri Pradhan AST [Catalytic activity/Vol] 17 U/L Normal 15-37 [facility] Comment on above: Performed By: #### P OCGLUC #### [facility] [address] [address] [address] Geri Pradhan Bilirubin [Mass/Vol] 0.2 mg/dL Normal 0.2-1.0 [facility] Comment on above: Performed By: #### P OCGLUC #### [facility] [address] [address] [address] Geri Pradhan Calcium [Mass/Vol] 9.4 mg/dL Normal 8.5-10.1 [facility] Comment on above: Performed By: #### P OCGLUC #### [facility] [address] [address] [address] Geri Pradhan Chloride [Moles/Vol] 99 mmol/L Normal 98-107 [facility] Comment on above: Performed By: #### P OCGLUC #### [facility] [address] [address] [address] Geri Pradhan CO2 [Moles/Vol] 42.8 mmol/L Critically high 21.0-32.0 [facility] Comment on above: Performed By: #### P OCGLUC #### [facility] [address] [address] [address] Geri Pradhan Creatinine [Mass/Vol] 0.55 mg/dL Normal 0.55-1.02 [facility] Comment on above: Performed By: #### P OCGLUC #### [facility] [address] [address] [address] Geri Pradhan EGFR-AF ESTONIAN >60 Normal >=60 [facility] Comment on above: Performed By: #### P OCGLUC #### [facility] [address] [address] [address] Geri Pradhan EGFR-NON AF ESTONIAN >60 Normal >=60 [facility] Comment on above: Performed By: #### P OCGLUC #### [facility] [address] [address] [address] Geri Pradhan Globulin (S) [Mass/Vol] 4.4 g/dL Normal [facility] Comment on above: Performed By: #### P OCGLUC #### [facility] [address] [address] [address] Geri Pradhan Glucose [Mass/Vol] 136 mg/dL Critically high 74-[address] [facility] Comment on above: Performed By: #### P OCGLUC #### [facility] [address] [address] [address] Geri Pradhan Potassium [Moles/Vol] 4.2 mmol/L Normal 3.5-5.1 [facility] Comment on above: Performed By: #### P OCGLUC #### [facility] [address] [address] [address] Geri Pradhan Protein [Mass/Vol] 7.3 g/dL Normal 6.4-8.2 [facility] Comment on above: Performed By: #### P OCGLUC #### [facility] [address] [address] [address] Geri Pradhan Sodium [Moles/Vol] 142 mmol/L Normal 136-145 [facility] Comment on above: Performed By: #### P OCGLUC #### [facility] [address] [address] [address] Geri Pradhan Urea nitrogen [Mass/Vol] 14.0 mg/dL Normal 7.0-18.0 [facility] Comment on above: Performed By: #### P OCGLUC #### [facility] [address] [address] [address] Geri Pradhan Urea nitrogen/Creatinine [Mass ratio] 25.5 mg/mg Normal [facility] Comment on above: Performed By: #### P OCGLUC #### [facility] [address] [address] [address] Geri Pradhan THEOPHYLLINEon 09-03-2022 THEOPHYLLINE <2.0 Critically low 10.0-20.0 [facility] Comment on above: Performed By: #### P OCGLUC #### [facility] [address] [place] [address] Dr. Geri Pradhan MAGNESIUMon 09-02-2022 Magnesium [Mass/Vol] 2.3 mg/dL Normal 1.8-2.4 [facility] Comment on above: Performed By: #### T JUAN JOSE, CMP #### [facility] [address] [address] [address] Geri Pradhan POINT OF CARE GLUCOSEon 08-12 Glucose [Mass/Vol] 118 mg/dL Critically high [facility] [facility] Comment on above: Performed By: #### R SPLUS #### [facility] [address] [address] [address] Geri Pradhan Glucose [Mass/Vol] 263 mg/dL Critically high -[address] [facility] Comment on above: Performed By: #### R SPLUS #### [facility] [address] [address] [address] Geri Pradhan Glucose [Mass/Vol] 160 mg/dL Critically high -[address] [facility] Comment on above: Performed By: #### P OCGLUC #### [facility] [address] [address] [address] Geri Pradhan PROF CHEM 8 (BAS METB)on Anion gap [Moles/Vol] 5.3 mmol/L Normal [facility] Comment on above: Performed By: #### Gerry INGRAM, CMP #### [facility] [address] [address] [address] Geri Pradhan Calcium [Mass/Vol] 9.5 mg/dL Normal 8.5-10.1 [facility] Comment on above: Performed By: #### Gerry INGRAM, CMP #### [facility] [address] [address] [address] Geri Pradhan Chloride [Moles/Vol] 94 mmol/L Critically low 98-107 [facility] Comment on above: Performed By: #### Gerry INGRAM, CMP #### [facility] [address] [address] [address] Geri Pradhan CO2 [Moles/Vol] 42.5 mmol/L Critically high 21.0-32.0 [facility] Comment on above: Performed By: #### Gerry INGRAM, CMP #### [facility] [address] [address] [address] Geri Pradhan Creatinine [Mass/Vol] 0.66 mg/dL Normal 0.55-1.02 [facility] Comment on above: Performed By: #### Gerry INGRAM, CMP #### [facility] [address] [address] [address] Geri Pradhan EGFR-AF ESTONIAN >60 Normal >=60 [facility] Comment on above: Performed By: #### Gerry INGRAM, CMP #### [facility] [address] [address] [address] Geri Pradhan EGFR-NON AF ESTONIAN >60 Normal >=60 [facility] Comment on above: Performed By: #### Gerry INGRAM, CMP #### [facility] [address] [address] [address] Geri Pradhan Glucose [Mass/Vol] 183 mg/dL Critically high 74-[address] [facility] Comment on above: Performed By: #### Gerry INGRAM, CMP #### [facility] [address] [address] [address] Geri Pradhan Potassium [Moles/Vol] 3.8 mmol/L Normal 3.5-5.1 [facility] Comment on above: Performed By: #### Gerry INGRAM, CMP #### [facility] [address] [address] [address] Geri Pradhan Sodium [Moles/Vol] 138 mmol/L Normal 136-145 [facility] Comment on above: Performed By: #### Gerry INGRAM, CMP #### [facility] [address] [address] [address] Geri Pradhan Urea nitrogen [Mass/Vol] 10.0 mg/dL Normal 7.0-18.0 [facility] Comment on above: Performed By: #### Gerry INGRAM, CMP #### [facility] [address] [place] [address] Dr. Geri Pradhan Urea nitrogen/Creatinine [Mass ratio] 15.2 mg/mg Normal [facility] Comment on above: Performed By: #### Gerry INGRAM, CMP #### [facility] [address] [place] [address] Dr. Geri Pradhan THEOPHYLLINEon 09-02-2022 THEOPHYLLINE <2.0 Critically low 10.0-20.0 [facility] Comment on above: Performed By: #### R SPLUS #### [facility] [address] [place] [address] Dr. Geri Pradhan BLOOD CULTURE ID PANELon A. baumannii Not detected Normal NOT DETECTED [facility] Comment on above: Performed By: #### Gerry INGRAM, CMP #### [facility] [address] [place] [address] Dr. Geri Pradhan Bacteriodes fragilis Not detected Normal NOT DETECTED [facility] Comment on above: Performed By: #### Gerry INGRAM, CMP #### [facility] [address] [place] [address] Dr. Geri Pradhan BCID CONTROLS PASSED Normal The [facility] Comment on above: Performed By: #### Gerry INGRAM, CMP #### [facility] [address] [place] [address] Dr. Geri Pradhan BCIDBTHD BLOOD CULTURE BOTTLE INFORMATION Normal [facility] Comment on above: Performed By: #### Gerry INGRAM, CMP #### [facility] [address] [address] [address] Geri Pradhan BCIDHD1 ANTIMICROBIAL RESISTANCE GENES Normal [facility] Comment on above: Performed By: #### Gerry INGRAM, CMP #### [facility] [address] [address] [address] Geri Pradhan BCIDHD2 SEE BELOW [facility] Comment on above: Result Comment: Note : Antimicrobial resitance can occur via multiple mechanisms. A Not Detected result for the [employer] antomicrobial resistance gene assays does not indicate antimicrobial susceptibility. Subculturing is required for species identification and susceptibility testing of isolates. Performed By: #### Gerry INGRAM, CMP #### [facility] [address] [address] [address] Geri Pradhan BCIDHD3 Positive [facility] Comment on above: Performed By: #### Gerry INGRAM, CMP #### [facility] [address] [address] [address] Geri Pradhan BCIDHD4 Negative Normal [facility] Comment on above: Performed By: #### Gerry INGRAM, CMP #### [facility] [address] [address] [address] Geri Pradhan BCIDHD5 YEAST Normal [facility] Comment on above: Performed By: #### Gerry INGRAM, CMP #### [facility] [address] [address] [address] Geri Pradhan Bottle Set: Set 1 Normal [facility] Comment on above: Performed By: #### Gerry INGRAM, CMP #### [facility] [address] [address] [address] Geri Pradhan Bottle: Aerobic Normal [facility] Comment on above: Performed By: #### Gerry INGRAM, CMP #### [facility] [address] [address] [address] Geri Pradhan C. neoformans/gattii Not detected Normal NOT DETECTED [facility] Comment on above: Performed By: #### Gerry INGRAM, CMP #### [facility] [address] [address] [address] Geri Pradhan Milagros albicans Not detected Normal NOT DETECTED [facility] Comment on above: Performed By: #### T JUAN JOSE, CMP #### [facility] [address] [address] [address] Geri Pradhan Milagros auris Not detected Normal NOT DETECTED The [facility] Comment on above: Performed By: #### T JUAN JOSE, CMP #### [facility] [address] [address] [address] Geri Pradhan Milagros glabrata Not detected Normal NOT DETECTED [facility] Comment on above: Performed By: #### T JUAN JOSE, CMP #### [facility] [address] [address] [address] Geri Pradhan Milagros Krusei Not detected Normal NOT DETECTED [facility] Comment on above: Performed By: #### T JUAN JOSE, CMP #### [facility] [address] [address] [address] Geri Pradhan Milagros Parapsilosis Not detected Normal NOT DETECTED [facility] Comment on above: Performed By: #### T JUAN JOSE, CMP #### [facility] [address] [place] [address] Dr. Geri Pradhan Milagros Tropicalis Not detected Normal NOT DETECTED [facility] Comment on above: Performed By: #### T JUAN JOSE, CMP #### [facility] [address] [place] [address] Dr. Geri Pradhan CTX-M Resistant Gene Not Applicable Normal NOT DETECTE D [facility] Comment on above: Performed By: #### T JUAN JOSE, CMP #### [facility] [address] [address] [address] Geri Pradhan E. Cloacae complex Not detected Normal NOT DETECTED [facility] Comment on above: Performed By: #### T JUAN JOSE, CMP #### [facility] [address] [place] [address] Dr. Geri Pradhan E. faecalis Not detected Normal NOT DETECTED [facility] Comment on above: Performed By: #### T JUAN JOSE, CMP #### [facility] [address] [address] [address] Geri Pradhan E. faecium Not detected Normal NOT DETECTED [facility] Comment on above: Performed By: #### T JUAN JOSE, CMP #### [facility] [address] [place] [address] Dr. Geri Pradhan Enterobacteriaceae Not detected Normal NOT DETECTED [facility] Comment on above: Performed By: #### T JUAN JOSE, CMP #### [facility] [address] [place] [address] Dr. Geri Pradhan Escherichia coli Not detected Normal NOT DETECTED [facility] Comment on above: Performed By: #### T JUAN JOSE, CMP #### [facility] [address] [place] [address] Dr. Geri Pradhan H. influenzae Not detected Normal NOT DETECTED The [facility] Comment on above: Performed By: #### T JUAN JOSE, CMP #### [facility] [address] [place] [address] Dr. Geri Pradhan IMP Resistant Gene Not Applicable Normal NOT DETECTED [facility] Comment on above: Performed By: #### Gerry INGRAM, CMP #### [facility] [address] [place] [address] Dr. Geri Pradhan K. oxytoca Not detected Normal NOT DETECTED [facility] Comment on above: Performed By: #### Gerry INGRAM, CMP #### [facility] [address] [place] [address] Dr. Geri Pradhan K. pneumoniae Not detected Normal NOT DETECTED The [facility] Comment on above: Performed By: #### Gerry INGRAM, CMP #### [facility] [address] [place] [address] Dr. Geri Pradhan Klebsiella aerogenes Not detected Normal NOT DETECTED [facility] Comment on above: Performed By: #### Gerry INGRAM, CMP #### [facility] [address] [place] [address] Dr. Geri Pradhan KPC Resistant Gene Not Applicable Normal NOT DETECTED [facility] Comment on above: Performed By: #### T JUAN JOSE, CMP #### [facility] [address] [place] [address] Dr. Geri Pradhan List. monocytogenes Not detected Normal NOT DETECTED [facility] Comment on above: Performed By: #### T JUAN JOSE, CMP #### [facility] [address] [place] [address] Dr. Geri Pradhan Mcr-1 Resistant Gene Not Applicable Normal NOT DETECTE D [facility] Comment on above: Performed By: #### T JUAN JOSE, CMP #### [facility] [address] [place] [address] Dr. Geri Pradhan mecA/C Detected Abnormal NOT DETECTED [facility] Comment on above: Performed By: #### T JUAN JOSE, CMP #### [facility] [address] [place] [address] Dr. Geri Pradhan mecA/C MREJ Not Applicable Normal NOT DETECTED The [facility] Comment on above: Performed By: #### T JUAN JOSE, CMP #### [facility] [address] [place] [address] Dr. Geri Pradhan N. meningitidis Not detected Normal NOT DETECTED [facility] Comment on above: Performed By: #### Gerry INGRAM, CMP #### [facility] [address] [place] [address] Dr. Geri Pradhan NDM Resistant Gene Not Applicable Normal NOT DETECTED [facility] Comment on above: Performed By: #### Gerry INGRAM, CMP #### [facility] [address] [place] [address] Dr. Geri Pradhan Oxa-48-like Not Applicable Normal NOT DETECTED The [facility] Comment on above: Performed By: #### Gerry INGRAM, CMP #### [facility] [address] [place] [address] Dr. Geri Pradhan Proteus Not detected Normal NOT DETECTED [facility] Comment on above: Performed By: #### T JUAN JOSE, CMP #### [facility] [address] [place] [address] Dr. Geri Pradhan Pseud. aeruginosa Not detected Normal NOT DETECTED [facility] Comment on above: Performed By: #### T JUAN JOSE, CMP #### [facility] [address] [place] [address] Dr. Geri Pradhan S. maltophilia Not detected Normal NOT DETECTED [facility] Comment on above: Performed By: #### Gerry INGRAM, CMP #### [facility] [address] [address] [address] Geri Pradhan Salmonella Not detected Normal NOT DETECTED [facility] Comment on above: Performed By: #### T JUAN JOSE, CMP #### [facility] [address] [address] [address] Geri Pradhan Seratia marcescens Not detected Normal NOT DETECTED [facility] Comment on above: Performed By: #### T JUAN JOSE, CMP #### [facility] [address] [address] [address] Geri Pradhan Site: Right AC Normal [facility] Comment on above: Performed By: #### Gerry INGRAM, CMP #### [facility] [address] [place] [address] Dr. Geri Pradhan Staph. aureus Not detected Normal NOT DETECTED The [facility] Comment on above: Performed By: #### Gerry INGRAM, CMP #### [facility] [address] [place] [address] Dr. Geri Pradhan Stapwilliam. epidermidis Detected Critically abnormal NOT DETECTED [facility] Comment on above: Performed By: #### Gerry INGRAM, CMP #### [facility] [address] [place] [address] Dr. Geri Pradhan Stapwilliam. lugdunensis Not detected Normal NOT DETECTED [facility] Comment on above: Performed By: #### Gerry INGRAM, CMP #### [facility] [address] [place] [address] Dr. Geri Pradhan Staphylococcus Detected Critically abnormal NOT DETECTED [facility] Comment on above: Performed By: #### T JUAN JOSE, CMP #### [facility] [address] [address] [address] Geri Pradhan Strep. agalactiae Not detected Normal NOT DETECTED [facility] Comment on above: Performed By: #### T JUAN JOSE, CMP #### [facility] [address] [place] [address] Dr. Geri Pradhan Strep. pneumoniae Not detected Normal NOT DETECTED [facility] Comment on above: Performed By: #### T JUAN JOSE, CMP #### [facility] [address] [place] [address] Dr. Geri Pradhan Strep. pyogenes Not detected Normal NOT DETECTED [facility] Comment on above: Performed By: #### T JUAN JOSE, CMP #### [facility] [address] [address] [address] Geri Pradhan Streptococcus Not detected Normal NOT DETECTED The [facility] Comment on above: Performed By: #### T JUAN JOSE, CMP #### [facility] [address] [place] [address] Dr. Geri Pradhan Amrit/B Resist. Gene Not Applicable Normal NOT DETECTED [facility] Comment on above: Performed By: #### Gerry INGRAM, CMP #### [facility] [address] [place] [address] Dr. Geri Pradhan VIM Resistant Gene Not Applicable Normal NOT DETECTED [facility] Comment on above: Performed By: #### Gerry INGRAM, CMP #### [facility] [address] [place] [address] Dr. Geri Prad[facility] 02 MODE NASAL CANNULA [facility] Comment on above: Performed By: #### R SPLUS #### [facility] [address] [place] [address] Dr. Geri Pradhan ALLENDionne TEST Positive [facility] Comment on above: Performed By: #### R SPLUS #### [facility] [address] [place] [address] Dr. Geri Pradhan Base excess Calc (Bld) [Moles/Vol] 22.8 mmol/L Critically high -2.0-2.0 [facility] Comment on above: Performed By: #### R SPLUS #### [facility] [address] [place] [address] Dr. Geri Pradhan BIPAP PRESSURE Normal [facility] Comment on above: Performed By: #### R SPLUS #### [facility] [address] [place] [address] Dr. Geri Pradhan CPAP [facility] Comment on above: Performed By: #### R SPLUS #### [facility] [address] [address] [address] Geri Pradhan FIO2 Normal [facility] Comment on above: Performed By: #### R SPLUS #### [facility] [address] [place] [address] Dr. Geri Pradhan HCO3 (Bld) [Moles/Vol] 47.1 mmol/L Critically high 22.0-26 .0 [facility] Comment on above: Performed By: #### R SPLUS #### [facility] [address] [place] [address] Dr. Geri Pradhan LPM 2.5 Normal [facility] Comment on above: Performed By: #### R SPLUS #### [facility] [address] [place] [address] Dr. Geri Pradhan MINUTE VOLUME Normal [facility] Comment on above: Performed By: #### R SPLUS #### [facility] [address] [place] [address] Dr. Geri Pradhan Oxygen (Bld) [Partial pressure] 95.8 mm[Hg] Normal 80.0-100.0 [facility] Comment on above: Performed By: #### R SPLUS #### [facility] [address] [place] [address] Dr. Geri Pradhan Oxygen saturation in Blood 98.0 % Normal 95.0-100.0 [facility] Comment on above: Performed By: #### R SPLUS #### [facility] [address] [place] [address] Dr. Geri Pradhan PCO2 71.5 mmHg Critically high 35.0-45.0 [facility] Comment on above: Performed By: #### R SPLUS #### [facility] [address] [place] [address] Dr. Geri Pradhan PEEP [facility] Comment on above: Performed By: #### R SPLUS #### [facility] [address] [place] [address] Dr. Geri Pradhan pH (Bld) 7.428 [pH] Normal 7.350-7.450 [facility] Comment on above: Performed By: #### R SPLUS #### [facility] [address] [address] [address] Geri Pradhan [facility] Comment on above: Performed By: #### R SPLUS #### [facility] [address] [address] [address] Geri Pradhan [facility] Comment on above: Performed By: #### R SPLUS #### [facility] [address] [address] [address] Geri Pradhan PUNCTURE SITE RR [facility] Comment on above: Performed By: #### R SPLUS #### [facility] [address] [place] [address] Dr. Geri Pradhan [facility] Comment on above: Performed By: #### R SPLUS #### [facility] [address] [place] [address] Dr. Geri Pradhan VENT [facility] Comment on above: Performed By: #### R SPLUS #### [facility] [address] [address] [address] Geri Pradhan [facility] Comment on above: Performed By: #### R SPLUS #### [facility] [address] [place] [address] Dr. Geri Pradhan BNPon 09-01-2022 Natriuretic peptide B (Bld) [Mass/Vol] 143.0 pg/mL Normal <=900.0 [facility] Comment on above: Performed By: #### R SPLUS #### [facility] [address] [place] [address] Dr. Geri Pradhan CARDIAC BRAYAN ADMITon 023 CK [Catalytic activity/Vol] 21 U/L Critically low 26-192 [facility] Comment on above: Performed By: #### R SPLUS #### [facility] [address] [place] [address] Dr. Geri Pradhan CK.MB [Mass/Vol] 0.78 ng/mL Normal <=3.60 [facility] Comment on above: Performed By: #### R SPLUS #### [facility] [address] [place] [address] Dr. Geri Pradhan HSTROP 6.9 pg/mL Normal 4.0-51.3 [facility] Comment on above: Result Comment: CUT- OFF POINTS HAVE BEEN ESTABLISHED BASED ON THE FOURTH UNIVERSAL DEFINITIONS OF MYOCARDIAL INFARCTION. THE UPPER REFERENCE LIMIT (URL) OF TROPONIN, DEFINED THE 99TH PERCENTILE OF cTnI DISTRIBUTION IN A REFERENCE POPULATION, HAS BEEN CONFIRMED THE DECISION THRESHOLD FOR VA DIAGNOSIS. Performed By: #### R SPLUS #### [facility] [address] [place] [address] Dr. Geri Pradhan VIN 20 ng/mL Normal 9-82 [facility] Comment on above: Performed By: #### R SPLUS #### [facility] [address] [place] [address] Dr. Geri Pradhan CBC AUTO DIFFon 09-01-2022 BASO # 0.0 103/ul Normal 0.0-0.1 [facility] Comment on above: Performed By: #### C BC #### [facility] [address] [place] [address] Dr. Grei Pradhan Basophils/100 WBC (Bld) 0.2 % Normal 0.2-2.0 [facility] Comment on above: Performed By: #### C BC #### [facility] [address] [place] [address] Dr. Geri Pradhan EO # 0.1 103/ul Normal 0.0-0.7 [facility] Comment on above: Performed By: #### C BC #### [facility] [address] [place] [address] Dr. Geri Pradhan Eosinophils/100 WBC (Bld) 1.5 % Normal 0.9-7.0 [facility] Comment on above: Performed By: #### C BC #### [facility] [address] [place] [address] Dr. Geri Pradhan Erythrocyte distribution width (RBC) [Ratio] 12.8 % Normal 11.0-15.0 [facility] Comment on above: Performed By: #### C BC #### [facility] [address] [place] [address] Dr. Geri Pradhan Hematocrit (Bld) [Volume fraction] 41.8 % Normal 36.0-48.0 [facility] Comment on above: Performed By: #### C BC #### [facility] [address] [place] [address] Dr. Geri Pradhan Hemoglobin (Bld) [Mass/Vol] 13.1 g/dL Normal 12.0-16.0 [facility] Comment on above: Performed By: #### C BC #### [facility] [address] [place] [address] Dr. Geri Pradhan IG # 0.05 10e3/ul Critically high 0.00-0.03 [facility] Comment on above: Performed By: #### C BC #### [facility] [address] [place] [address] Dr. Geri Pradhan IG % 0.5 % Normal 0.0-0.5 [facility] Comment on above: Performed By: #### C BC #### [facility] [address] [place] [address] Dr. Geri Pradhan LYMPH # 2.4 103/ul Normal 1.2-3.8 [facility] Comment on above: Performed By: #### C BC #### [facility] [address] [place] [address] Dr. Geri Pradhan Lymphocytes/100 WBC (Bld) 24.9 % Normal 20.5-60.0 [facility] Comment on above: Performed By: #### C BC #### [facility] [address] [place] [address] Dr. Geri Pradhan MANUAL DIFF REQ NO Normal [facility] Comment on above: Performed By: #### C BC #### [facility] [address] [place] [address] Dr. Geri Pradhan MCH (RBC) [Entitic mass] 27.2 pg Normal 26.7-34.0 [facility] Comment on above: Performed By: #### C BC #### [facility] [address] [place] [address] Dr. Geri Pradhan MCHC (RBC) [Mass/Vol] 31.3 g/dL Normal 29.9-35.2 [facility] Comment on above: Performed By: #### C BC #### [facility] [address] [place] [address] Dr. Geri Pradhan MCV (RBC) [Entitic vol] 86.7 fL Normal 81.0-99.0 [facility] Comment on above: Performed By: #### C BC #### [facility] [address] [address] [address] Geri Pradhan MONO # 0.9 103/ul Critically high 0.3-0.8 [facility] Comment on above: Performed By: #### C BC #### [facility] [address] [place] [address] Dr. Geri Pradhan Monocytes/100 WBC (Bld) 8.9 % Normal 1.7-12.0 [facility] Comment on above: Performed By: #### C BC #### [facility] [address] [place] [address] Dr. Geri Pradhan NEUT # 6.1 103/ul Normal 1.4-6.5 [facility] Comment on above: Performed By: #### C BC #### [facility] [address] [place] [address] Dr. Geri Pradhan Neutrophils/100 WBC (Bld) 64.0 % Normal 43.0-75.0 [facility] Comment on above: Performed By: #### C BC #### [facility] [address] [place] [address] Dr. Geri Pradhan Platelet mean volume (Bld) [Entitic vol] 9.2 fL Critically low 9.5-13.5 [facility] Comment on above: Performed By: #### C BC #### [facility] [address] [place] [address] Dr. Geri Pradhan PLT 349 103/ul Normal 150-450 [facility] Comment on above: Performed By: #### C BC #### [facility] [address] [place] [address] Dr. Geri Pradhan RBC 4.82 106/ul Normal 4.20-5.40 [facility] Comment on above: Performed By: #### C BC #### [facility] [address] [place] [address] Dr. Geri Pradhan WBC 9.5 103/ul Normal 4.0-11.0 [facility] Comment on above: Performed By: #### C BC #### [facility] [address] [place] [address] Dr. Geri Pradhan CULTURE BLOODon 09-01-2022 Microscopic examination of blood, culture Culture Observations: NO GROWTH AT 5 DAYS. Normal [facility] Comment on above: Performed By: #### P OCGLUC #### [facility] [address] [place] [address] Dr. Geri Pradhan CULTURE URINEon 09-01-2022 CULTURE URINE Culture Observations : EDUARDO TO FOLLOW. Isolate 1 Pseudomonas aeruginosa 10,000 cfu/mL of Normal [facility] Comment on above: Performed By: #### P OCGLUC #### [facility] [address] [place] [address] Dr. Geri Pradhan ER URINE PROFILEon 3 Bilirubin Ql (U) Negative Normal NEGATIVE [facility] Comment on above: Performed By: #### P OCGLUC #### [facility] [address] [place] [address] Dr. Geri Pradhan Clarity (U) CLEAR Normal CLEAR [facility] Comment on above: Performed By: #### P OCGLUC #### [facility] [address] [place] [address] Dr. Geri Pradhan Color (U) LT. YELLOW Normal YELLOW [facility] Comment on above: Performed By: #### P OCGLUC #### [facility] [address] [place] [address] Dr. Geri Pradhan ERUAHSuyapa A micrscopic examination will be performed if indicated. Normal [facility] Comment on above: Performed By: #### P OCGLUC #### [facility] [address] [place] [address] Dr. Geri Pradhan Glucose Ql (U) Negative Normal NEGATIVE [facility] Comment on above: Performed By: #### P OCGLUC #### [facility] [address] [address] [address] Geri Pradhan Hemoglobin Ql (U) TRACE-INTACT Abnormal NEGATIVE [facility] Comment on above: Performed By: #### P OCGLUC #### [facility] [address] [address] [address] Geri Pradhan Ketones Ql (U) Negative Normal NEGATIVE [facility] Comment on above: Performed By: #### P OCGLUC #### [facility] [address] [place] [address] Dr. Geri Pradhan LEUKOCYTES MODERATE Abnormal NEGATIVE [facility] Comment on above: Performed By: #### P OCGLUC #### [facility] [address] [place] [address] Dr. Geri Pradhan Nitrite Ql (U) Negative Normal NEGATIVE [facility] Comment on above: Performed By: #### P OCGLUC #### [facility] [address] [place] [address] Dr. Geri Pradhan pH (U) 6.5 [pH] Normal 5-9 [facility] Comment on above: Performed By: #### P OCGLUC #### [facility] [address] [place] [address] Dr. Geri Pradhan SPEC GRAVITY 1.010 Normal 1.005-<=1.02 5 [facility] Comment on above: Performed By: #### P OCGLUC #### [facility] [address] [place] [address] Dr. Geri Pradhan UA PROTEIN Negative Normal NEGATIVE/ TRACE [facility] Comment on above: Performed By: #### P OCGLUC #### [facility] [address] [place] [address] Dr. Geri Pradhan UR MICRO IND INDICATED Normal [facility] Comment on above: Performed By: #### P OCGLUC #### [facility] [address] [place] [address] Dr. Geri Pradhan Urobilinogen Qn (U) 0.2 {Lelia'U}/dL Normal 0.2 - 1. 0 [facility] Comment on above: Performed By: #### P OCGLUC #### [facility] [address] [address] [address] Geri Pradhan LACTATE/LACTIC ACIDon 2022 Lactate [Moles/Vol] 0.7 mmol/L Normal 0.4-2.0 [facility] Comment on above: Performed By: #### T JUAN JOSE, CMP #### [facility] [address] [address] [address] Geri Pradhan PROF 14(COMP METB)on 023 Albumin [Mass/Vol] 3.3 g/dL Critically low 3.4-5.0 [facility] Comment on above: Performed By: #### P OCGLUC #### [facility] [address] [place] [address] Dr. Geri Pradhan Albumin/Globulin [Mass ratio] 0.7 {ratio} Normal [facility] Comment on above: Performed By: #### P OCGLUC #### [facility] [address] [place] [address] Dr. Geri Pradhan ALP [Catalytic activity/Vol] 81 U/L Normal 46-116 [facility] Comment on above: Performed By: #### P OCGLUC #### [facility] [address] [place] [address] Dr. Geri Pradhan ALT [Catalytic activity/Vol] 19 U/L Normal 14-59 [facility] Comment on above: Performed By: #### P OCGLUC #### [facility] [address] [place] [address] Dr. Geri Pradhan Anion gap [Moles/Vol] 3.1 mmol/L Normal [facility] Comment on above: Performed By: #### P OCGLUC #### [facility] [address] [place] [address] Dr. Geri Pradhan AST [Catalytic activity/Vol] 16 U/L Normal 15-37 [facility] Comment on above: Performed By: #### P OCGLUC #### [facility] [address] [place] [address] Dr. Geri Pradhan Bilirubin [Mass/Vol] 0.2 mg/dL Normal 0.2-1.0 [facility] Comment on above: Performed By: #### P OCGLUC #### [facility] [address] [address] [address] Geri Pradhan Calcium [Mass/Vol] 9.8 mg/dL Normal 8.5-10.1 [facility] Comment on above: Performed By: #### P OCGLUC #### [facility] [address] [address] [address] Geri Pradhan Chloride [Moles/Vol] 93 mmol/L Critically low 98-107 [facility] Comment on above: Performed By: #### P OCGLUC #### [facility] [address] [address] [address] Geri Pradhan CO2 [Moles/Vol] 45.3 mmol/L Critically high 21.0-32.0 [facility] Comment on above: Performed By: #### P OCGLUC #### [facility] [address] [address] [address] Geri Pradhan Creatinine [Mass/Vol] 0.51 mg/dL Critically low 0.55-1.02 [facility] Comment on above: Performed By: #### P OCGLUC #### [facility] [address] [place] [address] Dr. Geri Pradhan EGFR-AF ESTONIAN >60 Normal >=60 [facility] Comment on above: Performed By: #### P OCGLUC #### [facility] [address] [address] [address] Geri Pradhan EGFR-NON AF ESTONIAN >60 Normal >=60 [facility] Comment on above: Performed By: #### P OCGLUC #### [facility] [address] [address] [address] Geri Pradhan Globulin (S) [Mass/Vol] 4.8 g/dL Normal [facility] Comment on above: Performed By: #### P OCGLUC #### [facility] [address] [address] [address] Geri Pradhan Glucose [Mass/Vol] 98 mg/dL Normal 74-106 [facility] Comment on above: Performed By: #### P OCGLUC #### [facility] [address] [address] [address] Geri Pradhan Potassium [Moles/Vol] 3.4 mmol/L Critically low 3.5-5.1 [facility] Comment on above: Performed By: #### P OCGLUC #### [facility] [address] [address] [address] Geri Pradhan Protein [Mass/Vol] 8.1 g/dL Normal 6.4-8.2 [facility] Comment on above: Performed By: #### P OCGLUC #### [facility] [address] [address] [address] Geri Pradhan Sodium [Moles/Vol] 138 mmol/L Normal 136-145 [facility] Comment on above: Performed By: #### P OCGLUC #### [facility] [address] [address] [address] Geri Pradhan Urea nitrogen [Mass/Vol] 11.0 mg/dL Normal 7.0-18.0 [facility] Comment on above: Performed By: #### P OCGLUC #### [facility] [address] [address] [address] Geri Pradhan Urea nitrogen/Creatinine [Mass ratio] 21.6 mg/mg Normal [facility] Comment on above: Performed By: #### P OCGLUC #### [facility] [address] [address] [address] Geri Pradhan PROTIMEon 09-01-2022 INR Coag (PPP) [Relative time] 0.96 {INR} Normal [facility] Comment on above: Performed By: #### T JUAN JOSE CMP #### [facility] [address] [address] [address] Geri Pradhan INR GUIDELINES SEE BELOW Normal [facility] Comment on above: Result Comment: KAROL RED INR: 2.0 - 3.0 CONDITIONS NOT LISTED BELOW 2.5 - 3.5 FOR PROSTHETIC HEART VALVE REPLACEMENT 2.5 - 3.5 RECURRENT THROMBOSIS Performed By: #### Gerry INGRAM, CMP #### [facility] [address] [place] [address] Dr. Geri Pradhan PT Coag (PPP) [Time] 10.2 s Normal 9.0-11.6 [facility] Comment on above: Performed By: #### T JUAN JOSE, CMP #### [facility] [address] [place] [address] Dr. Geri Pradhan PTTon 09-01-2022 aPTT Coag (Bld) [Time] 25.5 s Normal 22.3-36.2 [facility] Comment on above: Performed By: #### T JUAN JOSE, CMP #### [facility] [address] [place] [address] Dr. Geri Pradhan URINE MICROSCOPIC ONLYon BACTERIA NONE SEEN Normal NONE SEEN [facility] Comment on above: Performed By: #### P OCGLUC #### [facility] [address] [place] [address] Dr. Geri Pradhan Bacteria identified Cx Nom (U) INDICATED Normal [facility] Comment on above: Performed By: #### P OCGLUC #### [facility] [address] [place] [address] Dr. Geri Pradhan CAST NONE SEEN Normal NONE SEEN [facility] Comment on above: Performed By: #### P OCGLUC #### [facility] [address] [place] [address] Dr. Geri Pradhan Crystals LM Nom (Urine sed) NONE SEEN Normal NONE SEEN [facility] Comment on above: Performed By: #### P OCGLUC #### [facility] [address] [place] [address] Dr. Geri Pradhan Epithelial cells LM Ql (Urine sed) FEW Abnormal NONE SEEN /RARE [facility] Comment on above: Performed By: #### P OCGLUC #### [facility] [address] [place] [address] Dr. Geri Pradhan MUCOUS NONE SEEN Normal NONE SEEN [facility] Comment on above: Performed By: #### P OCGLUC #### [facility] [address] [place] [address] Dr. Geri Pradhan RBC 0-2 Normal 0-2 [facility] Comment on above: Performed By: #### P OCGLUC #### [facility] [address] [address] [address] Geri Pradhan WBC 10-20 Abnormal NONE SEEN [facility] Comment on above: Performed By: #### P OCGLUC #### [facility] [address] [place], [place] [address] Dr. Geri Pradhan XR CHEST 1 Von [...] by: EAMON ANDREWS Date: 2022-09-01 20:18 Normal [facility] CNOVon 06-02-2022 CNOV Office Visit (RADTSA ) CINTHIA STANLEY ([id number]) 1960 F Date Time Provider Department 06/02/22 [...] COPD, who is diagnosed with Stage IA3, [id number], non-small cell lung cancer arising from a [...] Aspergillus. 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 Cross and the patient was referred [...] oxygen via nasal cannula at 2 L [id number]. She notes that her cough is improved [...] COPD, who is diagnosed with Stage IA3, [id number], non-small cell lung cancer arising from a [...] Stanley i (more content not included)... Normal [facility] ASPERGILLUS GALACTOMANNAN AN TIGEN DETECTon 05-28-2022 Aspergillus Ag, BAL/Serum 0.07 Index Normal 0.00-0.49 [facility] Comment on above: Result Comment: Perf ormed at: BN Performed By: #### T JUAN JOSE CMP #### [facility] [address] [place] [address] Dr. Geri Pradhan Test Information . Normal [facility] Comment on above: Result Comment: Perf ormed at: TG Performed By: #### T JUAN JOSE CMP #### [facility] [address] [address] [address] Geri Pradhan ASPERGILLUS AB, QUANTITATIVE DIDon 05-27-2022 Aspergillus flavus Negative Normal Neg:<1:1 [facility] Comment on above: Performed By: #### Gerry INGRAM, CMP #### [facility] [address] [address] [address] Geri Pradhan Aspergillus fumigatus Negative Normal Neg:<1:1 [facility] Comment on above: Performed By: #### Gerry INGRAM, CMP #### [facility] [address] [address] [address] Geri Pradhan Aspergillus niger Negative Normal Neg:<1:1 [facility] Comment on above: Performed By: #### Gerry INGRAM CMP #### [facility] [address] [address] [address] Geri Pradhan CULTURE SPUTUMon 05-23-2022 CULTURE SPUTUM Culture Observations : NORMAL RESPIRATORY NAVA. Normal [facility] Comment on above: Performed By: #### P OCGLUC #### [facility] [address] [address] [address] Geri Pradhan SPUTUM GRAM STAINon 05-23-19 23 COMMENTS [facility] Comment on above: Performed By: #### Gerry INGRAM CMP #### [facility] [address] [address] [address] Geri Pradhan DIPHTHEROIDS Normal [facility] Comment on above: Performed By: #### Gerry INGRAM CMP #### [facility] [address] [address] [address] Geri Pradhan EPITHELIALS <25 [facility] Comment on above: Performed By: #### Gerry INGRAM CMP #### [facility] [address] [address] [address] Geri Pradhan FUNGAL ELEMENTS Normal [facility] Comment on above: Performed By: #### Gerry INGRAM CMP #### [facility] [address] [address] [address] Geri Pradhan GRAM NEG BACILLI Normal [facility] Comment on above: Performed By: #### Gerry INGRAM CMP #### [facility] [address] [address] [address] Geri Pradhan GRAM NEG DIPPLOCOCCI Normal [facility] Comment on above: Performed By: #### T JUAN JOSE, CMP #### [facility] [address] [address] [address] Geri Pradhan GRAM POS BACILLI Normal [facility] Comment on above: Performed By: #### T JUAN JOSE, CMP #### [facility] [address] [address] [address] Geri Pradhan GRAM POSITIVE COCCI MODERATE Normal [facility] Comment on above: Performed By: #### T JUAN JOSE, CMP #### [facility] [address] [address] [address] Geri Pradhan WBC (Bld) [#/Vol] 10*3/uL Normal The [facility] Comment on above: Performed By: #### T JUAN JOSE, CMP #### [facility] [address] [place] [address] Dr. Geri Pradhan BRONCHOSCOPYon 05-09-2022 [facility] Covid-19 PCR (CVDTBH)on 04-14 SARS-CoV-2 (COVID-19) RNA KRUNAL+probe Ql (Unsp spec) Not detected Normal NOT DETECTED [facility] Comment on above: Result Comment: This test is not yet approved or cleared by the [place] FDA. When there are no FDA-approved or cleared tests available, and other criteria are met, FDA can make tests available under an emergency access mechanism called an Emergency Use Authorization (EUA). The EUA for this test is supported by the Tourist Escort of Health and Human Service's (HHS's) declaration [...] SARS-CoV-2. Performed By: #### R SPLUS #### [facility] [address] [address] [address] Geri Pradhan Covid-19 PCR ([facility])on 03-14 SARS-CoV-2 (COVID-19) RNA KRUNAL+probe Ql (Unsp spec) Not detected Normal NOT DETECTED [facility] Comment on above: Result Comment: This test is not yet approved or cleared by the [place] FDA. When there are no FDA-approved or cleared tests available, and other criteria are met, FDA can make tests available under an emergency access mechanism called an Emergency Use Authorization (EUA). The EUA for this test is supported by the [place] of Health and Human Service's (HHS's) declaration [...] By: #### T JUAN JOSE, CMP #### [facility] [address] [place] [address] Dr. Geri Pradhan INFLUENZA A AND B AGon 04-08 [facility] SEE BELOW Normal [facility] Comment on above: Result Comment: Nega tive for Flu A protein angiten. Infection due to Flu A cannot be ruled out. Flu A angiten in the sample may be below the detection limit of the test. Performed By: #### T JUAN JOSE, CMP #### [facility] [address] [place] [address] Dr. Geri Pradhan [facility] SEE BELOW Normal [facility] Comment on above: Result Comment: Nega tive for Flu B protein antigen. Infection due to Flu B cannot be ruled out. Flu B antigen in the sample may be below the detection limit of the test. Performed By: #### T JUAN JOSE, CMP #### [facility] [address] [place], [place] [address] Dr. Geri Pradhan INFLUENZA A AG Negative Normal NEGATIVE SEE COMMENT [facility] Comment on above: Performed By: #### T JUAN JOSE, CMP #### [facility] [address] [place], [place] [address] Dr. Geri Pradhan INFLUENZA B AG Negative Normal NEGATIVE SEE COMMENT [facility] Comment on above: Performed By: #### T JUAN JOSE, CMP #### [facility] [id number] Geri Pradhan INTERNAL CONTROLS Within Normal Limits Normal Wi thin Normal Limits [facility] Comment on above: Performed By: #### T JUAN JOSE, CMP #### [facility] [id number] Geri Pradhan [address] CHEST W CONon [...] JULES RAMIREZ Date: 2022-02-17 08:02 Normal [facility] CREATININEon 02-15-2022 Creatinine [Mass/Vol] 0.52 mg/dL Critically low 0.55-1.02 [facility] Comment on above: Performed By: #### R SPLUS #### [facility] [address] [place] [address] Dr. Geri Pradhan EGFR-AF ESTONIAN >60 Normal >=60 [facility] Comment on above: Performed By: #### R SPLUS #### [facility] [address] [place] [address] Dr. Geri Pradhan EGFR-NON AF ESTONIAN >60 Normal >=60 [facility] Comment on above: Performed By: #### R SPLUS #### [facility] [address] [place] [address] Dr. Geri Pradhan CULTURE SPUTUMon 02-11-2022 CULTURE SPUTUM Isolate 1 Milagros albicans Light growth of Normal [facility] Comment on above: Performed By: #### S PUTCX #### [facility] [address] [place] [address] Dr. Geri Pradhan SPUTUM GRAM STAINon 02-12-20 22 COMMENTS Normal [facility] Comment on above: Performed By: #### R SPLUS #### [facility] [address] [place] [address] Dr. Geri Pradhan DIPHTHEROIDS Normal [facility] Comment on above: Performed By: #### R SPLUS #### [facility] [address] [place] [address] Dr. Geri Pradhan EPITHELIALS <25 Normal [facility] Comment on above: Performed By: #### R SPLUS #### [facility] [address] [place] [address] Dr. Geri Pradhan FUNGAL ELEMENTS Normal The [facility] Comment on above: Performed By: #### R SPLUS #### [facility] [address] [place] [address] Dr. Geri Pradhan GRAM NEG BACILLI Normal [facility] Comment on above: Performed By: #### R SPLUS #### [facility] [address] [place] [address] Dr. Geri Pradhan GRAM NEG DIPPLOCOCCI Normal [facility] Comment on above: Performed By: #### R SPLUS #### [facility] [address] [place] [address] Dr. Geri Pradhan GRAM POS BACILLI Normal [facility] Comment on above: Performed By: #### R SPLUS #### [facility] [address] [place] [address] Dr. Geri Pradhan GRAM POSITIVE COCCI MODERATE Normal [facility] Comment on above: Performed By: #### R SPLUS #### [facility] [address] [place] [address] Dr. Geri Pradhan WBC (Bld) [#/Vol] 10*3/uL Normal [facility] Comment on above: Performed By: #### R SPLUS #### [facility] [address] [place] [address] Dr. Geri Pradhan Covid-19 PCR (CVDTBH)on 11-13 SARS-CoV-2 (COVID-19) RNA KRUNAL+probe Ql (Unsp spec) Detected Critically abnormal NOT DETECTED [facility] Comment on above: Result Comment: This test is not yet approved or cleared by the [place] FDA. When there are no FDA-approved or cleared tests available, and other criteria are met, FDA can make tests available under an emergency access mechanism called an Emergency Use Authorization (EUA). The EUA for this test is supported by the Tourist Escort of Health and Human Service's (HHS's) declaration [...] used). Performed By: #### C VDTBH #### [facility] [address] [address] [address] Geri Pradhan General Surgery Office/Clini c Noteon 03-25-2021 General Surgery Office/Clinic Note Chief Complaint in-office excisional biopsy HPI Staff Presents for in-office excisional biopsy right christian and right lower extremity. No change since last evaluation. History of Present Illness here for excision of right christian and RLE lesions; no change since recent [...] and draped; anesthetized with 1% lidocaine; right christian lesion excised in an elliptical fashion down [...] Cardiac arrest: Mother, Father and Sister. Normal [facility] Comment on above: Result Comment: Elec tronically Signed By: JIM DAVENPORT, Jose Domínguez\Date and Time Signed: 03/25/21 17:02 EST Ambulatory Clinical Summaryo n 02-12-2021 Ambulatory Clinical Summary {[id number]}CD:[id number] Normal [facility] General Surgery Office/Clini c Noteon 02-12-2021 General Surgery Office/Clinic Note Chief Complaint follow up in-office excisional biopsy HPI Staff 11 day post operative follow up post in-office excisional biopsy right christian and right lower extremity. Sutures intact. Denies bleeding or drainage from incision site. History of Present Illness 11 days s/p excisional biopsy changing lesions right christian and right lower extremity; doing well, no drainage; christian lesion basal cell carcinoma, margins not commented [...] Brother. Cardiac arrest: Mother, Father and Sister. [facility] Comment on above: Result Comment: Elec tronically Signed By: JIM DAVENPORT, Jose Gonzalez.giana\Date and Time Signed: 02/12/21 13:16 EDT Pathology Noteon 02-06-2021 Pathology Note [id number] 0CD:127 Normal [facility] Ambulatory Clinical Summaryo n 01-11-2021 Ambulatory Clinical Summary {[id number]}CD:[id number] [facility] Ambulatory Clinical Summary {[id number]}CD:[id number] [facility] Physician Referralon 021 Physician Referral [id number] 0CD:127 [facility] [id number] 03-02-2018 Protein mass conc NAME : ELAINE STANLEY D : [id number] : 1960 Gender : FemaleRace : CaucasianORD : [id number] Procedure Date : Mar 02 2018 12:58:22Edit Date : Mar 02 2018 14:15:37 Diagnosis:NORMAL SINUS RHYTHMRIGHT ATRIAL ENLARGEMENTMINIMAL VOLTAGE CRITERIA FOR LVH, MAY BE NORMAL VARIANTBORDERLINE ECGNO PREVIOUS ECGS AVAILABLEConfirmed by CORNELIA ROGERS M.D. ([id number]) on 03/02/2018 2:15:27 PM Ventricular Rate : 86 BPMAtrial Rate : 86 BPMP-R Interval : 178 msQRS Duration : 72 msQ-T Interval : 374 msQTC Calculation(Bezet) : 447 msP [place] : 88 degreesR [place] : 78 degreesT [place] : 79 degrees Test Reason : Location : [facility] Overread By : KEN Maier,VIJAYEdited By : KEN Maier,VIJAYReferred By : DUGLAS FERNANDEZAcquired by : CELESTE GILLESPIE [employer] Vital Signs Date Time Vital Sign Value Performing Clinician Facility 05-17-2023 12:14-0500 Heart rate 120 /min [facility] 05-17-2023 12:14-0500 Respiratory rate 22 /min [facility] 05-17-2023 11:04-0500 Diastolic blood pressure 76 mm[Hg] [facility] 05-17-2023 11:04-0500 Inhaled oxygen flow rate 2 L/min [facility] 05-17-2023 11:04-0500 SaO2% (BldA) [Mass fraction] 97 % [facility] 05-17-2023 11:04-0500 Systolic blood pressure 117 mm[Hg] [facility] 05-17-2023 07:32-0500 Body temperature 97.4 [degF] [facility] 05-17-2023 03:19-0500 Body weight 39.2 kg [facility] 05-14-2023 16:31-0500 Body height 162.56 cm [facility] 05-14-2023 01:40-0500 Diastolic blood pressure 57 mm[Hg] [facility] 05-14-2023 01:40-0500 Heart rate 119 /min [facility] 05-14-2023 01:40-0500 Inhaled oxygen flow rate 2 L/min [facility] 05-14-2023 01:40-0500 Respiratory rate 22 /min [facility] 05-14-2023 01:40-0500 SaO2% (BldA) [Mass fraction] 91 % [facility] 05-14-2023 01:40-0500 Systolic blood pressure 119 mm[Hg] [facility] 05-13-2023 16:49-0500 Body height 162.56 cm [facility] 05-13-2023 16:49-0500 Body temperature 97.9 [degF] [facility] 05-13-2023 16:49-0500 Body weight 40.36 kg [facility] 11-27-2022 10:34-0400 Body temperature 96.01 [degF] Abdi Iqbal MD Work Phone: [facility] 11-27-2022 10:34-0400 Body weight 45.18 kg Abdi Iqbal MD Work Phone: [facility] 11-27-2022 10:34-0400 Diastolic blood pressure 82 mm[Hg] Abdi Iqbal MD Work Phone: [facility] 11-27-2022 10:34-0400 Heart rate 110 /min Abdi Iqbal MD Work Phone: [facility] 11-27-2022 10:34-0400 Respiratory rate 20 /min Abdi Iqbal MD Work Phone: [facility] 11-27-2022 10:34-0400 SaO2% (BldA) [Mass fraction] 89 % Abdi Iqbal MD Work Phone: [facility] 11-27-2022 10:34-0400 Systolic blood pressure 132 mm[Hg] Abdi Iqbal MD Work Phone: [facility] 06-26-2022 15:00-0400 Body height 162.56 cm Jose Conde Other [employer] Other 06-26-2022 15:00-0400 Body mass index (BMI) [Ratio] 18.02 kg/m2 Jose Conde Other [employer] Other 06-26-2022 15:00-0400 Body temperature 97.2 [degF] Jose Elton Other [employer] Other 06-26-2022 15:00-0400 Body weight 47.63 kg Jose Elton Other [employer] Other 06-26-2022 15:00-0400 Diastolic blood pressure 80 mm[Hg] Jose Elton Other [employer] Other 06-26-2022 15:00-0400 Systolic blood pressure 128 mm[Hg] Jose Elton Other [employer] Other 06-02-2022 14:09-0500 Body temperature 97.7 [degF] Abdi Iqbal MD Work Phone: [facility] 06-02-2022 14:09-0500 Body weight 49.35 kg Abdi Iqbal MD Work Phone: [facility] 06-02-2022 14:09-0500 Diastolic blood pressure 78 mm[Hg] Abdi Iqbal MD Work Phone: [facility] 06-02-2022 14:09-0500 Heart rate 116 /min Abdi Iqbal MD Work Phone: [facility] 06-02-2022 14:09-0500 Respiratory rate 18 /min Abdi Iqbal MD Work Phone: [facility] 06-02-2022 14:09-0500 SaO2% (BldA) [Mass fraction] 89 % Abdi Iqbal MD Work Phone: [facility] 06-02-2022 14:09-0500 Systolic blood pressure 125 mm[Hg] Abdi Iqbal MD Work Phone: [facility] 05-22-2022 15:15-0500 Body height 162.56 cm Jose Conde Other [employer] Other 05-22-2022 15:15-0500 Body mass index (BMI) [Ratio] 18.02 kg/m2 Jose Conde Other [employer] Other 05-22-2022 15:15-0500 Body temperature 98.2 [degF] Jose Conde Other [employer] Other 05-22-2022 15:15-0500 Body weight 47.63 kg Jose Conde Other [employer] Other 05-22-2022 15:15-0500 Diastolic blood pressure 78 mm[Hg] Jose Conde Other [employer] Other 05-22-2022 15:15-0500 Systolic blood pressure 130 mm[Hg] Jose Hart [employer] Other [employer] Other 05-09-2022 10:30-0500 Diastolic blood pressure 80 mm[Hg] Yasmin Waggoner MD Work Phone: [facility] 05-09-2022 10:30-0500 Heart rate 99 /min Yasmin Waggoner MD Work Phone: [facility] 05-09-2022 10:30-0500 Respiratory rate 16 /min Yasmin Waggoner MD Work Phone: [facility] 05-09-2022 10:30-0500 SaO2% (BldA) [Mass fraction] 97 % Yasmin Waggoner MD Work Phone: [facility] 05-09-2022 10:30-0500 Systolic blood pressure 134 mm[Hg] Yasmin Waggoner MD Work Phone: [facility] 05-09-2022 10:02-0500 Body temperature 98.2 [degF] Yasmin Waggoner MD Work Phone: [facility] 05-09-2022 07:03-0500 Body height 162.6 cm Yasmin Waggoner MD Work Phone: [facility] 05-09-2022 07:03-0500 Body weight 47.63 kg Yasmin Waggoner MD Work Phone: [facility] 03-14-2022 11:22-0500 Body temperature 97.81 [degF] Abdi Iqbal MD Work Phone: [facility] 03-14-2022 11:22-0500 Body weight 49.9 kg Abdi Iqbal MD Work Phone: [facility] 03-14-2022 11:22-0500 Heart rate 101 /min Abdi Iqbal MD Work Phone: [facility] 03-14-2022 11:22-0500 Respiratory rate 16 /min Abdi Iqbal MD Work Phone: [facility] 03-14-2022 11:22-0500 SaO2% (BldA) [Mass fraction] 96 % Abdi Iqbal MD Work Phone: [facility] 06-06-2021 10:01-0500 Body temperature 97.7 [degF] Abdi Iqbal MD Work Phone: [facility] 06-06-2021 10:01-0500 Body weight 51.71 kg Abdi Iqbal MD Work Phone: [facility] 06-06-2021 10:01-0500 Diastolic blood pressure 67 mm[Hg] Abdi Iqbal MD Work Phone: [facility] 06-06-2021 10:01-0500 Heart rate 97 /min Abdi Iqbal MD Work Phone: [facility] 06-06-2021 10:01-0500 Respiratory rate 20 /min Abdi Iqbal MD Work Phone: [facility] 06-06-2021 10:01-0500 SaO2% (BldA) [Mass fraction] 93 % Abdi Iqbal MD Work Phone: [facility] 06-06-2021 10:01-0500 Systolic blood pressure 120 mm[Hg] Abdi Iqbal MD Work Phone: [facility] Encounters Encounter Date Encounter Type Care Provider Facility Start: 05-25-2023 End: 05-25-2023 ambulatory ABDI IQBAL Facility:[facility] Start: 05-20-2023 Telephone encounter Abdi Iqbal MD Work Phone: Radiation Oncology Comment on above: Patient Update; Futu re Appointment Start: 05-14-2023 End: 05-17-2023 Evaluation and management of inpatient Ally Warner Facility:[facility] Start: 05-14-2023 Non-patient / Non-visit [facility] Med OutPt Work Phone: Start: 04-09-2023 End: 04-09-2023 ambulatory ANA DRIVER Not Available Start: 11-27-2022 End: 11-28-2022 ambulatory ABDI IQBAL Facility:[facility] Start: 11-27-2022 End: 11-28-2022 Patient encounter procedure Abdi Iqbal MD Work Phone: Radiation Oncology Comment on above: Neoplasm of lung (Pr imary Dx) Start: 11-18-2022 Telephone encounter Ced Rojas Hematology/Oncology Comment on above: Appointment Start: 09-02-2022 End: 09-05-2022 Evaluation and management of inpatient DR ADITHYA BASS . Facility: Start: 06-26-2022 End: 06-26-2022 ambulatory Jose Conde Other [employer] Other Start: 06-26-2022 Office outpatient vi sit 25 minutes Jose Conde [facility] Start: 06-10-2022 End: 06-10-2022 ambulatory Jose Conde Other [employer] Other Start: 06-10-2022 Telephone encounter Jose Conde [facility] Start: 06-02-2022 End: 06-02-2022 ambulatory ABDI IQBAL Facility:[facility] Start: 06-02-2022 End: 06-02-2022 Patient encounter procedure Abdi Iqbal MD Work Phone: Radiation Oncology Comment on above: Non-small cell cance r of left lung (HCC) (Primary Dx) Start: 05-23-2022 End: 05-23-[address] JOSE CONDE Facility:[facility] Start: 05-22-2022 End: 05-23-[address] JOSE CONDE [employer] Other Start: 05-22-2022 Office outpatient ne w 45 minutes Jose LORENZANA Infectious Disease Start: 05-14-2022 Telephone encounter Abdi Iqbal MD Work Phone: Radiation Oncology Comment on above: Appointment Start: 05-09-2022 End: 05-09-2022 Subsequent hospital visit by physician Yasmin Waggoner MD Work Phone: Admitting Comment on above: Bronchiolar disease [J98.09] Start: 05-08-2022 Encounter for preprocedural laboratory examination DR DOCTOR DAS [facility] Start: 05-06-2022 End: 05-06-[address] DOCTOR [...] with patient Vitor Farias MD Work Phone: [facility] Start: 04-24-2022 Telephone encounter [address]ina Hassan CT Pulmonary Medicine Comment on above: Appointment (PreOp Heath carranza) Start: 04-23-2022 Orders Only Alicja Reece APRN.ASSISTANT LABORATORY DIRECTOR Work Phone: Admitting Comment on above: Preoperative examina tion (Primary Dx) Appointment Start: 04-23-2022 Preprocedural examin ation done Alicja Reece WAFER FABRICATOR.ASSISTANT LABORATORY DIRECTOR Work Phone: Admitting Start: 04-22-2022 ambulatory Vitor [...] of lung Start: 03-02-2018 Patient encounter procedure [facility] Start: 03-24-2017 Ambulatory JAYE HOUGH Facil [id number] Start: 03-24-2017 Ambulatory Adithya Bass Fac ility:[id number] Procedures Date Procedure Procedure Detail Performing Clinician Start: 05-09-2022 [facility] incl fluor g dnce dx w/cell washg spx Abdi Iqbal MD Work Phone: Start: 06-06-2021 Adult depression screening assessment Abdi Iqbal MD Work Phone: Plan of Treatment Date Care Activity Detail Author Start: 04-24-2025 DIABETES SCREEN DIABETES SCREEN [facility] Start: 04-24-2025 Diabetes Screening Diabetes Screenin g [facility] Start: 05-17-2023 [facility] Start: 05-14-2023 Administration of prophylactic treatment [facility] Start: 05-14-2023 End: 05-14-2023 [facility] Start: 05-14-2023 Hospital admission [facility] Start: 05-14-2023 Microbial culture of sputum [facility] Start: 05-13-2023 CT Chest [facility] Start: 05-13-2023 End: 07-13-2023 CREATININE BLD CREATININE BLD Lab Routine Neoplasm of lung Expected: 05/13/2023 (Approximate), Expires: 07/13/2023 [facility] Work Phone: Comment on above: Expected: 05/13/2023 (Approximate), Expires: 07/13/2023 Start: 05-13-2023 End: 12-27-2023 CT CHEST W IVCON CT CHEST W IVCON Radiology Routine Neoplasm of lung Expected: 05/13/2023 (Approximate), Expires: 12/27/2023 [facility] Work Phone: Comment on above: Expected: 05/13/2023 (Approximate), Expires: 12/27/2023 Start: 04-13-2023 Depression Assessment Depression Ass essment [facility] Start: 12-12-2022 Influenza vaccination C [facility] Start: 06-06-2022 Adult depression screening assessment DEPRESSION SCREENING [facility] Start: 06-06-2022 End: 06-06-2022 CREATININE BLD CREATININE BLD Lab Routine Non-small cell cancer of left lung (HCC) Expected: 06/06/2022, Expires: 06/06/2022 [facility] Work Phone: Comment on above: Expected: 06/06/2022 , Expires: 06/06/2022 Start: 06-06-2022 End: 07-06-2022 Ct thorax w/contrast material CT CHEST W IVCON Radiology Routine Non-small cell cancer of left lung (HCC) Neoplasm of lung Expected: 06/06/2022, Expires: 07/06/2022 [facility] Work Phone: Comment on above: Expected: 06/06/2022 , Expires: 07/06/2022 Start: 04-24-2022 End: 06-24-2022 SARS-CoV-2 (COVID-19) RNA [Presence] in Respiratory specimen by KRUNAL with probe detection INTERMEDIATE RAPID COVID Microbiology Routine Preoperative examination Expected: 04/24/2022, Expires: 06/24/2022 [facility] Work Phone: Comment on above: Expected: 04/24/2022 , Expires: 06/24/2022 Start: 04-22-2022 End: 06-22-2022 Basic metabolic 2000 panel - Serum or Plasma BASIC METABOLIC PNL Lab STAT Lung mass Expected: 04/22/2022, Expires: 06/22/2022 [facility] Work Phone: Comment on above: Expected: 04/22/2022 , Expires: 06/22/2022 Start: 04-22-2022 End: 06-22-2022 CBC W Auto Differential panel - Blood CBC + DIFF Lab STAT Lung mass Expected: 04/22/2022, Expires: 06/22/2022 [facility] Work Phone: Comment on above: Expected: 04/22/2022 , Expires: 06/22/2022 Start: 04-13-2022 DEPRESSION ASSESSMENT DEPRESSION ASS ESSMENT [facility] Start: 12-12-2021 Influenza vaccination INFLUENZA (#1) [facility] Start: 2021 RSV Vaccine (1 - 1-d ose 60+ series) RSV Vaccine (1 - 1-dose 60+ series) [facility] Start: 04-13-2021 DEPRESSION ASSESSMENT DEPRESSION ASS ESSMENT [facility] Start: 03-02-2021 DIABETES SCREEN DIABETES SCREEN [facility] Start: 08-26-2011 SHINGRIX VACCINE (1 of 2) SHINGRIX VACCINE (1 of 2) [facility] Start: 2006 COLOGUARD (FIT-DNA) COLOGUARD (FIT-D NA) [facility] Start: 2006 Colonoscopy COLONOSCOPY [facility] Start: 2006 COLORECTAL CANCER SCREENING COLORECTAL CANCER SCREENING [facility] Start: [address] COLONOGRAPHY [facility] Start: 2006 FECAL OCCULT BLOOD FECAL OCCULT BLOO D [facility] Start: 2006 Lipid panel Lipid Screening [facility] Start: 2006 LIPID SCREEN LIPID SCREEN [facility] Start: 2006 Screening for malign ant neoplasm of colon [facility] Start: 2006 SIGMOIDOSCOPY SIGMOIDOSCOPY [facility] Start: 2001 Mammography MAMMOGRAM [facility] Start: 2001 Screening for malign ant neoplasm of breast Mammogram Screening [facility] Start: 08-26-1991 HPV TESTING HPV TESTING [facility] Start: 08-26-1991 Screening for malign ant neoplasm of cervix HPV Testing [facility] Start: 08-26-1991 Zoledronic acid therapy ALPHA- 1 ANTITRYPSIN DEFICIENCY SCREENING [facility] Start: 1982 PAP TESTING PAP TESTING [facility] Start: 1982 Screening for malign ant neoplasm of cervix Pap Testing [facility] Start: 1980 Urine microalbumin profile [facility] Start: 08-26-1979 ANNUAL PCP TEAM EXCELLENCE MANAGER PREETHI DISEASE VISIT ANNUAL PCP TEAM CHRONIC DISEASE VISIT [facility] Start: 08-26-1979 HEPATITIS C SCREENING HEPATITIS C [facility] Start: 08-26-1979 Hepatitis C screening Hepatitis C [facility] Start: 08-26-1979 HIV SCREENING HIV SCREENING [facility] Start: 08-26-1979 HIV screening HIV Screening [facility] Start: 08-26-1979 SPIROMETRY SPIROMETRY [facility] Start: 08-26-1967 PNEUMOCOCCAL (1 - PCV) PNEUMOCOCCAL (1 - PCV) [facility] Start: 08-26-1967 Pneumococcal vaccination Pneum ococcal Vaccine (1 of 2 - PCV) [facility] Start: 1966 COVID-19 VACCINE (1) COVID-19 VACCIN E (1) [facility] Start: 02-25-1962 COVID-19 VACCINE (#1) COVID-19 VACCI NE (#1) [facility] End: 05-22-2023 Ct thorax w/o contrast material CT CHEST WO IVCON Radiology Routine Lung mass 1 Occurrences starting 04/22/2022 until 05/22/2023 [facility] Work Phone: Comment on above: 1 Occurrences starti ng 04/22/2022 until 05/22/2023 CYTOLOGY NON-MANAGER LEARNING [facility] Work Phone: Comment on above: Release Upon Orderin g for 1 Occurrences starting 05/09/2022, 1 completed End: 04-22-2023 ECG COMPLETE ECG COMPLETE ECG STAT Lung mass 1 Occurrences starting 04/22/2022 until 04/22/2023 [facility] Work Phone: Comment on above: 1 Occurrences starti ng 04/22/2022 until 04/22/2023 Patient Education Chronic Obstru ctive Pulmonary Disease (COPD) (DC) Levofloxacin (Systemic) Pneumonia, Adult (DC) [facility] Work Phone: Patient referral [facility] Work Phone: End: 03-22-[address] attenuation skull base mid-thigh NM PET/CT SKULL-THIGH INITIAL Radiology Routine Neoplasm of lung 1 Occurrences starting 02/21/2022 until 03/22/2023 [facility] Work Phone: Comment on above: 1 Occurrences starti ng 02/21/2022 until 03/22/2023 SARS-CoV-2 (COVID-19 ) RNA [Presence] in Respiratory specimen by KRUNAL with probe detection SELF CHECK COVID Microbiology Routine Lung mass Ordered: 04/22/2022 [facility] Work Phone: Comment on above: Ordered: 04/22/2022 SURGICAL PATHOLOGY [facility] Work Phone: Comment on above: Release Upon Kurt nicole for 1 Occurrences starting 05/09/2022, 1 completed [facility] Immunizations Immunization Date Immunization Notes Care Provider Fa cili 03-04-2022 influenza, injectabl e, quadrivalent, preservative free Vitor Farias MD Work Phone: [facility] 03-04-2022 influenza virus vacc ine, unspecified formulation Abdi Iqbal MD Work Phone: [facility] 03-19-2021 influenza, injectabl e, quadrivalent, preservative free Vitor Farias MD Work Phone: [facility] 02-22-2021 influenza virus vacc ine, unspecified formulation Vitor Farias MD Work Phone: [facility] 03-02-2020 Influenza, injectabl e, Madin Smiley Canine Kidney, preservative free, quadrivalent Vitor Farias MD Work Phone: [facility] 02-02-2019 Influenza, injectabl e, Madin Bushra Canine Kidney, preservative free, quadrivalent Vitor Farias MD Work Phone: [facility] 03-02-2018 influenza, injectabl e, quadrivalent, contains preservative Abdi Iqbal MD Work Phone: [facility] Payers Date Payer Category Payer Self-pay [id number] 2018 Medicaid [employer] [id number] 2018-Present [phone] [address] [place] [address] Medicaid [id number] 2018 Medicaid [id number] 1961 Unknown [id number] 1961 Unknown [id number] 1961 Unknown [id number] 1961 Unknown [id number] 1961 Unknown [id number] 1961 Unknown [id number] 1961 Unknown [id number] 1961 Unknown [id number] 1961 Unknown [id number] 1961 Unknown [id number] 1959 Self-pay [id number] 1959 Unknown [id number] 1959 Unknown [id number] Unknown [id number] Social History Date Type Detail Facility Start: 03-02-2018 End: 03-14-2022 Tobacco smoking status NHIS Ex-smoker [facility] End: 04-13-2012 History of tobacco use Current smoker [facility] Start: 03-02-2018 End: 11-27-2022 Cigarettes smoked current (pack per day) - Reported 1.5 [facility] Start: 03-02-2018 End: 03-14-2022 Tobacco use and exposure Smokeless tobacco non-user [facility] Start: 06-06-2021 End: 03-14-2022 Alcohol intake Current drinker of alcohol (finding) [facility] Start: 1960 Sex Assigned At Not on file [facility] Start: 05-07-2021 End: 03-14-2022 Exposure to SARS-CoV-2 (event) Not sure [facility] End: 04-13-2012 History of tobacco use Cigarette Smoker [facility] Work Phone: Start: 03-14-2022 End: 11-27-2022 Sex Assigned At [facility] Adult Depression Screening Assessment 0 [facility] Start: 1960 Sex Assigned At Female F [facility] Clinical Notes 05-14-2011 to 05-20-2023 Telephone Encounter - Elidia Rinaldi - 05/20/2023 9:59 AM ESTTelephone Encounter - Silvia Lomax RN - 05/20/2023 9:51 AM Abdi Mayorga MD - 11/27/2022 10:30 AM EDT Note Date & Type Note Facility 05-20-2023 Miscellaneous Notes Patient is called and scheduled for next week Pt called in and was admitted to [facility] last week. They did CT Chest. She has been waiting on insurance approval for a chest CT and will not need one now. She would like follow up arranged. Reports printed from [facility] and images requested. PSS- please call pt and arrange follow up with Dr Iqbal for next week. Thank you Silvia Lomax RN documented in this encounter [facility] 11-27-2022 Note HNO ID: [id number] Author: Abdi Iqbal MD Service: ? Author Type: Physician Type: Progress Notes Filed: 12/09/2022 9:33 PM Note Text: Radiation Oncology - Follow Up Note PATIENT NAME: CINTHIA Stanley PATIENT DIAGNOSIS/PATIENT IDENTIFICATION: Ms. Stanley is a 62-year-old woman with severe COPD, who is diagnosed with Stage IA3, [id number], non-small cell lung cancer arising from a [...] been following up with pulmonary therapy at [facility] and with her line maintenance supervisor Dr. Driver and using her nebulizers. She [...] COPD, who is diagnosed with Stage IA3, [id number], non-small cell lung cancer arising from a [...] the chest. She will follow with her line maintenance supervisor Dr. Driver to optimize her respiratory function [...] which included preparing to see the patient, ozqk-li-bphb patient care, and counseling and educating the patient/family/caregiver. This document has been created with the use of voice recognition technology. It may contain inaccuracies, missp (more content not included)... [facility] 11-27-2022 History of Presen t illness Narrative Images from the original note were not included. Radiation Oncology - Follow Up Note PATIENT NAME: CINTHIA Stanley PATIENT DIAGNOSIS/PATIENT IDENTIFICATION: Ms. Stanley is a 62-year-old woman with severe COPD, who is diagnosed with Stage IA3, [id number], non-small cell lung cancer arising from a [...] been following up with pulmonary therapy at [facility] and with her line maintenance supervisor Dr. Driver and using her nebulizers. She [...] COPD, who is diagnosed with Stage IA3, [id number], non-small cell lung cancer arising from a [...] the chest. She will follow with her line maintenance supervisor Dr. Driver to optimize her respiratory function [...] which included preparing to see the patient, zxet-vu-cjso patient care, and counseling and educating the patient/family/caregiver. This document has been created with the use of voice recognition technology. It may contain inaccuracies, misspellings, inaccurate syntax or inappropriate word context that are a result of the inadequacies/shortcomings of said technology/software. documented in this encounter [facility] 11-18-2022 Miscellaneous Notes FYI--Dr. Driver's progress note is available in Care Everywhere. Dr. Bass's office note to be faxed over per his office. Anita Pressley LPN Pt notified, CT canceled. Katerina working on records from Dr Bass and Dr Driver. Images/report being pushed from [facility]. Ced Victoria RN Yes, please cancel CT tomorrow. In addition to the images, please request any office notes from Dr. Bass as well as her line maintenance supervisor. Thanks! Abdi Pt called for CT 11/19/22. She reports CT completed 09/24/22 at [facility]. CT chest verified and will send images/report. LORENZO: Would you like to cancel CT? Please advise Ced Victoria RN documented in this encounter [facility] 06-26-2022 Evaluation note Encounter Date Diagnosis Assessment [...] History of lung cancer (ICD-10 - Z85.118) [facility] Other 02-21-2023 NoteHNO ID: [id number] Author: Abdi Iqbal MD Service: ? Author Type: Physician Type: Progress Notes Filed: 06/15/2022 8:09 PM Note Text: Radiation Oncology - Follow Up Note PATIENT NAME: CINTHIA Stanley PATIENT DIAGNOSIS/PATIENT IDENTIFICATION: Ms. Stanley is a 61-year-old woman with severe COPD, who is diagnosed with Stage IA3, [id number], non-small cell lung cancer arising from a [...] Aspergillus. 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 Cross and the patient was referred [...] oxygen via nasal cannula at 2 L [id number]. She notes that her cough is improved [...] COPD, who is diagnosed with Stage IA3, [id number], non-small cell lung cancer arising from a [...] show (more content not included)...[facility] 06-02-2022 History of Present illness Narrative* Abdi Iqbal MD - 06/02/2022 11:53 PM EST Radiation Oncology - Follow Up Note PATIENT NAME: CINTHIA Stanley PATIENT Signed by: Abdi Iqbal MD I spent a total of 20 minutes on the date of the service which included preparing to see the patient, wsfo-yk-lqsh patient care, and counseling and educating the patient/family/caregiver. This document has been created with the use of voice recognition technology. It may contain inaccuracies, misspellings, inaccurate syntax or inappropriate word context that are a result of the inadequacies/shortcomings of said technology/software. documented in [facility] Evaluation note* Encounter Date Diagnosis Assessment Notes [...] History of lung cancer (ICD-10 - Z85.118) [facility] Other 02-01-2023 Miscellaneous Notes* Telephone Encounter - Abdi Iqbal MD - 05/14/2022 10:40 PM EST Thanks! Abdi * Telephone Encounter - Kendal Lomax [facility] - 05/14/2022 1:59 PM EST Records faxed to Dr. Conde. Requested images be pushed to [facility]. * Telephone Encounter - Telma Pak - [...] yesterday showing fungal/aspergillus infection. Spoke with her line maintenance supervisor, Dr. Cross, today and agreed to refer [...] Thanks Anita Pressley LPN documented in [facility] encounterK[facility] History of Present illness Narrative* Interface Note - 05/09/2022 8:00 PM EST Epic Scheduled Downtime: 05/10/2022 1:00:00 AM to 05/10/2022 3:56:00 AM documented in this encounterK[facility]01-27-2023 Nurse Note* Luz Maria Blanca RN - [...] Luz Maria Blanca RN documented in this encounterK[facility]01-16-2023 NoteHNO ID: [id number] Author: Vitor Farias MD Service: ? Author Type: Physician Type: Progress Notes Filed: 04/28/2022 4:35 PM Note Text: VIRTUAL VISIT PROGRESS NOTE This is a virtual visit using Whistlest[employer] video visit. It required patient-provider interaction for [...] eating well. COPD managed locally by a line maintenance supervisor. HISTORY REVIEWED (electronic chart updated): PAST MEDICAL [...] Emphysema. Controlled and stable; managed by local line maintenance supervisor. I spent a total of 60 minutes on the date of the service which included preparing to see the patient, lfsb-rd-nsha patient care, completing clinical documentation, obtaining and/or reviewing separately obta (more content not included)...[facility] [id number] History of Present illness Narrative* Vitor Farias MD - 04/28/2022 3:03 PM EST VIRTUAL VISIT PROGRESS NOTE This is a virtual visit using Whistlestop video visit. It required patient-provider interaction for [...] eating well. COPD managed locally by a line maintenance supervisor. HISTORY REVIEWED (electronic chart updated): PAST MEDICAL [...] Emphysema. Controlled and stable; managed by local line maintenance supervisor. I spent a total of 60 minutes on the date of the service which included preparing to see the patient, hrfh-fd-diru patient care, completing clinical documentation, obtaining and/or reviewing separately obtained history, performing a medically appropriate examination, counseling and educating the pat ient/family/caregiver, ordering medications, tests, or procedures, communicating with other HCPs (not separately reported), independently interpreting results (not separately reported), communicatingresults to the patient/family/caregiver, and care coordination (not separately reported) Vitor Farias MD April 28, 2022 documented in this encounterK[facility]01-11-2023 Miscellaneous Notes* Telephone Encounter - Telma Pak - 04/23/2022 9:58 AM EST Patient has been scheduled for both & confirmed appt day & time. Telma Pak * Telephone Encounter - Telma Pak - 04/23/2022 9:10 AM EST Called patient to schedule her for EKG & labs per e-mail. No answer, LMOV requesting a returnedphone call. Telma Pak documented in this encounterK[facility]01-10-2023 History of Present illness Narrative* Vitor Farias [...] try to get labs/EKG/COVID swab done at [facility] Cancer Does the pt need cardiac clearance?: No Is she on anticoagulants/anti-plt therapy?: No Nursing Considerations: (ie: snf, TB, respiratory isolation, clinical trial, Specific protocol etc.) none Additional notes to the alfalfa dehydrator 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 Please try to access the PET avid area if possible. Consultation request/referral by: Abdi Iqbal MD ([facility]) Reviewed by: PHANI Farias MD April 22, 2022 3:49 PM Addendum: CBC with diff: WBC 6.81 03/02/2018 RBC 4.94 03/02/2018 Hemoglobin 14.7 03/02/2018 Hematocrit 44.5 03/02/2018 MCV 90.1 03/02/2018 MCH 29.8 03/02/2018 MCHC 33.0 03/02/2018 RDW-CV 12.4 03/02/2018 Platelet Count 234 03/02/2018 MPV 10.3 03/02/2018 Neut% 64.3 03/02/2018 Lymph% 25.3 03/02/2018 Hardee% 9.1 03/02/2018 Eosin% 0.7 03/02/2018 Baso% 0.6 03/02/2018 Abs Neut (ANC) 4.36 03/02/2018 Abs Hardee 0.62 03/02/2018 Abs Eosin 0.05 03/02/2018 Abs [...] - 0.96 mg/dL Final documented in this encounterK[facility]01-10-2023 Miscellaneous Notes* Telephone Encounter - Anita Pressley [...] time. Anita Pressley LPN documented in this encounterK[facility]12-02-2022 History of Present illness Narrative* Abdi Iqbal MD - 03/14/2022 11:44 PM EST Radiation Oncology - Follow Up Note PATIENT NAME: Omaira Stanley PATIENT Signed by: Abdi Iqbal MD I spent a total of 20 minutes on the date of the service which included preparing to see the patient, hvnz-tj-lary patient care, and counseling and educating the patient/family/caregiver. This document has been created with the use of voice recognition technology. It may contain inaccuracies, misspellings, inaccurate syntax or inappropriate word context that are a result of the inadequacies/shortcomings of said technology/software. documented in this encounterK[facility]11-11-2022 Miscellaneous Notes* Telephone Encounter - Telma Pak [...] then follow-up to review documented in this encounterK[facility]11-10-2022 Miscellaneous Notes* Telephone Encounter - Anita Pressley [...] then follow-up to review documented in this encounterKet[facility]02-24-2022 History of Present illness Narrative* Abdi Iqbal MD - 06/06/2021 4:50 PM EST Radiation Oncology - Follow Up Note PATIENT NAME: Omaira Stanley PATIENT DIAGNOSIS/PATIENT IDENTIFICATION: Ms. Stanley is a 60-year-old woman with severe COPD, who is diagnosed with Stage IA3, [id number], non-small cell lung cancer arising from a [...] COPD, who is diagnosed with Stage IA3, [id number], non-small cell lung cancer arising from a [...] which included preparing to see the patient, oiem-ju-ruji patient care and counseling and educating the patient/family/caregiver. This document has been created with the use of voice recognition technology. It may contain inaccuracies, misspellings, inaccurate syntax or inappropriate word context that are a result of the inadequacies/shortcomings of said technology/software. documented in this encounterKet[facility]10-01-2021 NoteChief Complaint consultation for nevus HPI Staff 60 year old female presents on consultation from Dr. Bass for right lower leg fresh colored skin lesion. Present for 4 months. Scabbed area from recent trama. Denies itching. Also notes dark pigmentedlesion to right christian. Present 4 months. Does not bleed or itch. History of Present Illness 60 yo female with h/o COPD, previous lung cancer, on oxygen; referred for changing skin lesions; right lower extremity lesion enlarging; recently scratched so scabbed over; no bleeding; right christian lesion with small scab, no pain or [...] nodes, cyanosis, clubbing. Skin: no rashes right christian with 4 mm raised, erythematous lesion with [...] infarction: Brother. Cardiac arrest: Mother, Father and Sister.[facility] HospitalComment on above:Result Comment: Electronically Signed By: JIM DAVENPORT, Jose Gonzalez.br\Date and Time Signed: 01/11/21 11:20 [id number] History general Narrative - Reported* Type Description Date Medical History COPD Surgical History appendectomy Surgical History csection Hospitalization History PNA at [facility] 05/2011 [facility] Other Evaluation note* Diagnosis Non-small cell cancer of left lung (HCC)- Primary Neoplasm of lung Neoplasm of unspecified nature of respiratory system [facility] Diagnosis Neoplasm of lung- Primary Neoplasm of unspecified nature of respiratory system [facility]* Diagnosis Non-small cell cancer of left lung (HCC)- Primary [facility]* Diagnosis Lung mass- Primary Swelling, mass, or lump in chest [facility] Diagnosis Preoperative examination- Primary Preoperative examination, unspecified Bronchiolar disease Other diseases of trachea and bronchus [facility]* Diagnosis Non-small cell cancer of left lung (HCC)- Primary Lung mass Swelling, mass, or lump in chest Centrilobular emphysema (HCC) Other emphysema Bronchiolar disease Other diseases of trachea and bronchus [facility] Diagnosis Bronchiolar disease Other diseases of trachea and bronchus Lung nodule Solitary pulmonary nodule [facility] Diagnosis Aspergillus pneumonia (HCC)- Primary Aspergillosis Non-small cell cancer of left lung (HCC) [facility]* Diagnosis Non-small cell cancer of left lung (HCC)- Primary [facility] noteNo [employer] Other evaluation note* Diagnosis Neoplasm of lung- Primary Neoplasm of unspecified nature of respiratory system [facility]* Diagnosis Onset Date Resolution Status Chronic respiratory failure with hypoxia acute COPD exacerbation acute Exertional shortness of breath acute Pneumonia acute Pulmonary cachexia due to COPD acute Tachycardia acute [facility] Work Phone: evaluation note* Diagnosis Onset Date Resolution Status Acute hypoxic respiratory failure acute Cachexia acute Chronic respiratory failure with hypoxia acute COPD exacerbation acute Exertional shortness of breath acute Pneumonia acute Pulmonary cachexia due to COPD acute Tachycardia acute [facility] Work Phone: Hospital Discharge instructions Additional Instructions I may not have addressed or treated all of your medical illnesses or the abnormal blood work or imaging studies during this hospitalization. Please ask your primary care provider to obtain [facility] records entirely to follow up on all of the abnormal physical, laboratory, and imaging findings that I have not addressed. Please return back to the emergency room or seek medical attention if your symptoms worsen or return. You asked me to give you the name of the lung specialist who is affiliated with [facility]. Please follow-up with Dr. Rasmussen regarding COPD, lung nodule and pulmonary care. Until you get your first appointment with Dr. Rasmussen, continue to follow-up with Dr. Driver guarding your lung nodule and COPD You would need to have follow-up on lung nodule that is seen before Discharging you from [facility] does not mean that your medical care [...] Thank you. Continue home oxygen per chronic orders.[facility] Work Phone: Reason for referral (narrative)* Diagnostic Procedure Only (Routine) - Additional Clinical Info Needed Specialty Diagnoses / Procedures Referred By Dwayne t Referred To Contact MOLECULAR & FUNCTIONAL IMAGING Diagnoses Neoplasm of lung Procedures NM PET/CT SKULL-THIGH INITIAL PET IMAGING CT ATTENUATION SKULL BASE MID-THIGH Abdi Iqbal MD [address] [place] [address] [place] [address] Molecular & Functional Imaging [address] [place] [address] Referral ID Status Reason Start Date Expiration Date Visits Requested Visits Authorized [id number] Additional Clinical Info Needed Auto-Generat ed Referral 2 03/22/2023 1 1 [facility] Summary Purpose Family History No Family History Records FoundNo Family History Records FoundNo Family History Records FoundNo Family History Records FoundNo Family History Records FoundNo Family History Records FoundNo Family History Records FoundNo Family History Records FoundNo Family History Records Found Advance Directives No Advanced Directives Records FoundDocuments on File Type Date Recorded Patient Supplier Relationship Director Expl anation Advance Directive(s) Advance Directive(s) 03/19/2018 8:37 AM Advance Directive Response Recorded Date/ Time Advance Directives No February 11:15am Reason for Referral Specialty Diagnoses / Procedures Referred By Dwayne rosa Referred To Contact CT IMAGING Diagnoses Non-small cell cancer of left lung (HCC) Neoplasm of lung Procedures CT CHEST W IVCON DIAGNOSTIC COMPUTED TOMOGRAPHY THORAX W/CONTRAST Abdi Iqbal MD [address] [place] [address] [place] [address] Ct Imaging Referral ID Status Reason Start Date Expiration Date Visits Requested Visits Authorized [id number] Pending Review Auto-Generat ed Referral 06/06/2022 07/06/2022 1 1 Specialty Diagnoses / Procedures Referred By Dwayne rosa Referred To Contact CT IMAGING Diagnoses Lung mass Procedures CT CHEST WO IVCON DIAGNOSTIC COMPUTED TOMOGRAPHY THORAX W/O CNTRST Vitor Farias MD [address] [place] [address] Ct Imaging Referral ID Status Reason Start Date Expiration Date Visits Requested Visits Authorized [id number] Pending Review Auto-Generat ed Referral 04/22/2022 05/22/2023 1 1 Specialty Diagnoses / Procedures Referred By Contac t Referred To Contact [facility] Diagnoses Lung mass Procedures ECG COMPLETE ECG ROUTINE ECG W/LEAST 12 LDS W/I&R Vitor Farias MD [address] [place] [address] [address] Referral ID Status Reason Start Date Expiration Date Visits Requested Visits Authorized [id number] Pending Review Auto-Generat ed Referral 04/22/2022 04/22/2023 1 1 Specialty Diagnoses / Procedures Referred By Contac t Referred To Contact Infectious Diseases Diagnoses Aspergillus pneumonia (HCC) Non-small cell cancer of left lung (HCC) Procedures CONSULT TO INFECTIOUS DISEASES Abdi Iqbal MD [address] [place] [address] [place] [address] Referral ID Status Reason Start Date Expiration Date Visits Requested Visits Authorized [id number] Ref Not Required PCP Requested Referral 05/14/2022 05/14/2023 1 1 Specialty Diagnoses / Procedures Referred By Contac t Referred To Contact CT IMAGING Diagnoses Neoplasm of lung Procedures CT CHEST W IVCON DIAGNOSTIC COMPUTED TOMOGRAPHY THORAX W/CONTRAST Abdi Iqbal MD [address] [place] [address] [place] [address] Ct Imaging [facility] Referral ID Status Reason Start Date Expiration Date Visits Requested Visits Authorized [id number] Pending Review Auto-Generat ed Referral 05/13/2023 12/27/2023 [...] section and content) DATE CREATED AUTHOR 10/06/2017 [facility] DATE CREATED AUTHOR AUTHOR'S ORGANIZ ATION 10/09/2017 [facility] DATE CREATED AUTHOR AUTHOR'S ORGANIZ ATION 03/22/2018 [facility] DATE CREATED AUTHOR AUTHOR'S ORGANIZ ATION 03/26/2021 [facility] DATE CREATED AUTHOR AUTHOR'S ORGANIZ ATION 04/29/2022 [facility] DATE CREATED AUTHOR AUTHOR'S ORGANIZ ATION 09/19/2022 [facility] DATE CREATED AUTHOR AUTHOR'S ORGANIZ ATION 04/11/2023 [facility] DATE CREATED AUTHOR AUTHOR'S ORGANIZ ATION 05/26/[address] [facility] DATE CREATED AUTHOR AUTHOR'S ORGANIZ ATION 05/31/2023 [facility] Source Comments (unrecognize d section and content) In the event this informatio n is protected by the Federal Confidentiality of Alcohol and Drug Abuse Patient Records regulations: The Federal rules restrict any use of the information to criminally investigate or prosecute any alcohol or drug abuse patient.[facility] event this information is protected by the Federal Confidentiality of Alcohol and Drug Abuse Patient Records regulations: The Federal rules restrict any use of the information to criminally investigate or prosecute any alcohol or drug abuse patient.[facility] event this information is protected by the Federal Confidentiality of Alcohol and Drug Abuse Patient Records regulations: The Federal rules restrict any use of the information to criminally investigate or prosecute any alcohol or drug abuse patient.[facility] event this information is protected by the Federal Confidentiality of Alcohol and Drug Abuse Patient Records regulations: The Federal rules restrict any use of the information to criminally investigate or prosecute any alcohol or drug abuse patient.[facility] event this information is protected by the Federal Confidentiality of Alcohol and Drug Abuse Patient Records regulations: The Federal rules restrict any use of the information to criminally investigate or prosecute any alcohol or drug abuse patient.[facility] event this information is protected by the Federal Confidentiality of Alcohol and Drug Abuse Patient Records regulations: The Federal rules restrict any use of the information to criminally investigate or prosecute any alcohol or drug abuse patient.[facility] event this information is protected by the Federal Confidentiality of Alcohol and Drug Abuse Patient Records regulations: The Federal rules restrict any use of the information to criminally investigate or prosecute any alcohol or drug abuse patient.[facility] event this information is protected by the Federal Confidentiality of Alcohol and Drug Abuse Patient Records regulations: The Federal rules restrict any use of the information to criminally investigate or prosecute any alcohol or drug abuse patient.[facility] the event this information is protected by the Federal Confidentiality of Alcohol and Drug Abuse Patient Records regulations: The Federal rules restrict any use of the information to criminally investigate or prosecute any alcohol or drug abuse patient.[facility] the event this information is protected by the Federal Confidentiality of Alcohol and Drug Abuse Patient Records regulations: The Federal rules restrict any use of the information to criminally investigate or prosecute any alcohol or drug abuse patient.[facility] the event this information is protected by the Federal Confidentiality of Alcohol and Drug Abuse Patient Records regulations: The Federal rules restrict any use of the information to criminally investigate or prosecute any alcohol or drug abuse patient.[facility] the event this information is protected by the Federal Confidentiality of Alcohol and Drug Abuse Patient Records regulations: The Federal rules restrict any use of the information to criminally investigate or prosecute any alcohol or drug abuse patient.[facility] event this information is protected by the Federal Confidentiality of Alcohol and Drug Abuse Patient Records regulations: The Federal rules restrict any use of the information to criminally investigate or prosecute any alcohol or drug abuse patient.[facility] the event this information is protected by the Federal Confidentiality of Alcohol and Drug Abuse Patient Records regulations: The Federal rules restrict any use of the information to criminally investigate or prosecute any alcohol or drug abuse patient.[facility] event this information is protected by the Federal Confidentiality of Alcohol and Drug Abuse Patient Records regulations: The Federal rules restrict any use of the information to criminally investigate or prosecute any alcohol or drug abuse patient.[facility] event this information is protected by the Federal Confidentiality of Alcohol and Drug Abuse Patient Records regulations: The Federal rules restrict any use of the information to criminally investigate or prosecute any alcohol or drug abuse patient.[facility] Reason for Visit (unrecogniz ed section and content) Reason Comments Lung Cancer Reason Comments Orders Reason Comments Orders Reason Comments Lung Cancer Reason Comments Appointment PreOp Bronch Reason Comments Patient Update Appointment Reason Comments Lung Cancer Lung Mass Reason Comments Appointment Specialty Diagnoses / Procedures Referred By Contac t Referred To Contact ADMITTING Diagnoses Bronchiolar disease Procedures [facility] INCL FLUOR GDNCE DX W/CELL WASHG SPX BRONCHOSCOPY [facility] H[address] [address] Referral ID Status Reason Start Date Expiration Date Visits Re quested Visits Authorized [id number] 1 1 Reason Comments Appointment Reason Comments Patient Update Future Appointment Care Teams (unrecognized sec tion and content) [employer] Relationship Specialty Start Date End Date Adithya Bass MD [address] [place] [address] PCP - General Family Practice 02/25/18 [employer] Relationship Specialty Start Date End Date Adithya Bass MD [address] [place] [address] PCP - General Family Medicine 02/25/18 [employer] Relationship Specialty Start Date End Date Adithya Bass MD [address] [place] [address] PCP - General Family Medicine 02/25/18 [employer] Operator Relationship Specialty Start Date End Date Adithya Bass MD [address] [place] [address] PCP - General Family Medicine 02/25/18 [employer] Operator Relationship Specialty Start Date End Date Adithya Bass MD [address] [place] [id number] PCP - General Family Medicine 02/25/18 [employer] Operator Relationship Specialty Start Date End Date Adithya Bass MD [address] [place] [address] PCP - General Family Medicine 02/25/18 [employer] Operator Relationship Specialty Start Date End Date Adithya Bass MD [address] [place] [address] PCP - General Family Medicine 02/25/18 [employer] Operator Relationship Specialty Start Date End Date Adithya Bass MD [address] [place] [address] PCP - General Family Medicine 02/25/18 [employer] Operator Relationship Specialty Start Date End Date Adithya Bass MD [address] [place] [address] PCP - General Family Medicine 02/25/18 [employer] Operator Relationship Specialty Start Date End Date Adithya Bass MD PCP - General Family Medicine 02/25/18 [employer] Operator Relationship Specialty Start Date End [...] BE BASED ON THE PRIMARY CLINICAL RECORDS. [facility]. provides no warranty or guarantee of the accuracy or completeness of information in this document.
[2023-06-11 17:37] LABS: Influenza Virus A Antigen Negative; Influenza Virus B Antigen Negative; Internal Control Within Normal Limits; Respiratory Syncytial Virus Not Detected (NOT DETECTE); SARS-CoV-2 Ag NEGATIVE (NEGATIVE)
[2023-06-12 15:29] LABS: SARS-CoV-2 NAA NOT DETECTED (NOT DETECTE)
== END 2023-06-11 15:47 | disposition home or self-care (01) ==
LOC: LAB 15:46
PROVIDERS: PCP Family Medicine; Visit Provider Family Medicine
DX: J20.9 Acute bronchitis, unspecified (principal); J18.9 Pneumonia, unspecified organism
CPT/HCPCS: 71101; 87420; 87635; 87804; 87811

== ENCOUNTER 2023-07-22 11:34 | Outpatient (OUT) | payer OTHER, SELFPAY ==
--- NOTE | 2023-07-22 11:43 | XR_ITS ---
The [address] [address] Patient Name: PHOEBE STANLEY MRN: [id number] date: 1960 Sex: F Assigned Patient Location: LAB Current Patient Location: LAB Accession/Order Number: [id number] Exam Date: 07/22/2023 11:37 Report Date: 07/22/2023 15:45 At the request of: ADITHYA KENYON Procedure: XR chest 2V EXAMINATION: XR chest 2V HISTORY: Chest Pain R07.9, Acute Bronchitis COMPARISON: 03/17/2023 TECHNIQUE: PA and lateral FINDINGS: LUNGS: Stable hyperinflation. New focal densities identified in the left upper lobe with parenchymal retraction extending to the superior lateral pleural surface. Stable bilateral emphysema VASCULATURE: No increased pulmonary vasculature. PLEURA: Pleural thickening/mass left upper lateral lung zone CARDIAC: No cardiomegaly or cardiac silhouette abnormality. MEDIASTINUM: No visible mass or adenopathy. BONES: No fracture or visible bone lesion. OTHER: Negative. XR/XR chest 2V IMPRESSION: New opacity/density in the left upper lung zone. CT scan of the chest is recommended for further evaluation Electronically authenticated by: JULES RAMIREZ Date: 07/22/2023 15:45
[2023-07-22 14:33] LABS: Influenza Virus A Antigen Negative; Influenza Virus B Antigen Negative; Internal Control Within Normal Limits; SARS-CoV-2 Ag NEGATIVE (NEGATIVE)
[2023-07-22 15:51] LABS: SARS-CoV-2 NAA INCONCLUSIVE (NOT DETECTE)
== END 2023-07-22 11:35 | disposition home or self-care (01) ==
LOC: LAB 11:34
PROVIDERS: PCP Family Medicine; Visit Provider Family Medicine
DX: J20.9 Acute bronchitis, unspecified (principal); R07.9 Chest pain, unspecified; R91.8 Other nonspecific abnormal finding of lung field
CPT/HCPCS: 71046; 87635; 87804; 87811

== ENCOUNTER 2023-08-13 07:45 | Outpatient (OUT) | payer OTHER, SELFPAY ==
--- OUTSIDE RECORDS SUMMARY | 2023-08-13 07:49 | XMS_ITS | CCD ---
Author Organization [facility] Care Team Providers Care Varnishing Machine Operator Name Role Phone Adithya Bass Unavailable Unavailable JAYE HOUGH Unavailable Unavailable ADITHYA BASS Unavailable Unavailable ABDJUANA MAMOUN Unavailable Unavailable Adithya Bass MD Primary Care Provider [phone] Adithya Bass MD Primary Care Provider [phone] Adithya Bass MD Primary Care Provider [phone] VITOR FARIAS Attending Unavailable ADITHYA BASS Primary Care Unavailable Jose Conde Unavailable ELTON, DR GARCIA Admitting Unavailable BLANK, [...] MARKER ., DR CAMEJO Consulting Unavailable OMAR ., TAMIA Consulting Unavailable FABIOLA WIDL Consulting Unavailable EAMON ANDREWS Consulting Unavailable HOY ., DR HAJI Admitting Unavailable HOY ., DR HAJI Attending Unavailable HOY ., DR HAJI Consulting Unavailable HOY ., DR HAJI Primary Care Unavailable [place], DR JULES Naranjo Consulting Unavailable HOY ., DR HAJI Admitting Unavailable HOY ., DR HAJI Attending Unavailable HOY ., DR HAJI Consulting Unavailable HOY ., DR HAJI Primary Care Unavailable HOY ., DR HAJI Admitting Unavailable HOY ., DR HAJI Attending Unavailable CHANTALE ., DR HAJI Consulting Unavailable CHANTALE Beck, DR HAJI Primary Care Unavailable ELTON, DR GARCIA Admitting Unavailable ELTON, DR GARCIA Attending Unavailable ELTON, DR GARCIA Consulting Unavailable CHANTALE ., DR HAJI Primary Care Unavailable Adithya Bass MD Primary Care Provider [phone] SA LINDYJU Attending Unavailable ADITHYA BASS Primary Care Unavailable LINDY, ABDI Attending Unavailable LINDY, ABDI Referring Unavailable ADITHYA BASS Primary Care Unavailable LINDY, ABDI Attending Unavailable LINDY, ABDI Referring Unavailable ADITHYA BASS Primary Care Unavailable Ally Warner Admitting Unavailable Adithya Bass Primary Care Unavailable Cassandra Andersen Attending Unavailable ANA DRIVER Attending Unavailable ANA DRIVER Attending Unavailable Allergies Allergy Classification Reported Allergen(s) Allergy Type Date of Onset Reaction(s) Facility (20 sources) levoFLOXacin; Translations: [LEVOFLOXACIN] Drug Allergy 03-02-2018 Unknown [facility] Other [place] Repository (2 sources) levoFLOXacin Drug Allergy [facility] Repository Medications Current Medications Medication Drug [...] mg by mouth daily at bedtime. nystatin 667747 unt/ml oral suspension (4 sources) Polyene Antifungal Start: 05-17-2023 take 756700 [IU] by mouth three times daily Nystatin Active 674136 UNIT PO Three times daily May 17, 2023 8:48am Nystatin 561135 units/mL 1 mL to each cheek Four [...] 12:00am Start: 02-02-2018 take 1 capsule by mo uth once daily, then take 1 capsule by [...] / sennosides, chcf 8.6 mg oral tablet (16 sources) Start: 05-25-2018 take 2 tablets by mouth every twelve hours as needed senna-docusate (SENOKOT-S) 8.6-50 mg per tablet Take 2 tablets by mouth twice daily as needed. 100 tablet 1 05/25/2018 Active Comment on above: Take 2 tablets by mo [facility] twice daily as needed. ipratropium/albuter ol sulfate [...] 05-14-2023 05-14-2023 Episodic Other aftercare (1 source) terminal computer operator (current) use of systemic steroids; Translations: [SENIOR LIVING USE OF SYSTEMIC STEROIDS] Onset: 09-09-2022 Episodic Other aftercare (1 source) terminal computer operator (current) use of inhaled steroids; Translations: [SENIOR LIVING USE OF INHALED STEROIDS] Onset: 09-09-2022 Episodic Other aftercare (1 source) Other intermediate card tender (current) drug therapy; Translations: [OTH SENIOR LIVING CURRENT DRUG THERAPY] Onset: 09-09-2022 Episodic Other lower respiratory disease (1 source) Solitary pulmonary nodule; Translations: [Solitary pulmonary nodule] Onset: 03-02-2018 Episodic Other lower respiratory disease (2 sources) Lung mass; Translations: [Other nonspecific abnormal finding of lung field] Episodic Other lower respiratory disease (1 source) Other nonspecific abnormal finding of lung field; Translations: [Lung mass] Onset: 04-28-2022 Episodic Other lower respiratory disease (1 source) [...] Test Name Value Interpretation Reference Range Facility [facility]INTH[facility] ([id number]) 1960 F Date Time Provider Department 05/20/23 ABDI IQBAL During your visit today, we recorded the following information about you: Silvia Lomax RN 05/20/2023 9:55 AM Signed Pt called in and was admitted to [facility] last week. They did CT Chest. She has been waiting on insurance approval for a chest CT and will not need one now. She would like follow up arranged. Reports printed from [facility] and images requested. PSS- please call pt and arrange follow up with Dr Iqbal for next week. Thank you LUCIE Mchugh Tiffany 05/20/2023 9:59 AM Signed Patient is called and scheduled for next week Allergies As of Date: 05/20/2023 Noted Allergy Reaction LEVOQUIN (LEVOFLOXACIN) 03/02/2018 16 - Unknown Comments: Tendonitis but can take avalox Date Reviewed: 11/27/2022 Reviewed by: Silvia Lomax, RN - Fully Assessed Reason for Visit: [...] Status:Closed by SILVIA LOMAX on 05/20/23 Normal [facility] Complete Blood Count Auto Di ffon 05-15-2023 Basophils (Bld) [#/Vol] 0.0 10*3/uL Normal 0.0-0.2 [facility] Comment on above: Result Comment: PERF ORMED BY: [facility] [address] [place] [address] PATHOLOGIST EQUIPMENT INSPECTOR JASMEET LIN M.D. Performed By: #### C MP, CBC #### [address] Basophils/100 WBC (Bld) 0.3 % Normal . [facility] Comment on above: Performed By: #### C MP, CBC #### [facility] [address] Eosinophils (Bld) [#/Vol] 0.0 10*3/uL Normal 0.0-0.45 [facility] Comment on above: Performed By: #### C MP, CBC #### [facility] [address] [place] [address] [place] Eosinophils/100 WBC (Bld) 0.0 % Normal . [facility] Comment on above: Performed By: #### C MP, CBC #### [facility] [address] Erythrocyte distribution width (RBC) [Ratio] 13.5 % Normal 11.9-15.3 [facility] Comment on above: Performed By: #### C MP, CBC #### [address] Hematocrit (Bld) [Volume fraction] 42.0 % Normal 34.0-46.4 [facility] Comment on above: Performed By: #### C MP, CBC #### [address] Hemoglobin (Bld) [Mass/Vol] 13.9 g/dL Normal 11.8-15.4 [facility] Comment on above: Performed By: #### C MP, CBC #### [place] [address] [place] Lymphocytes (Bld) [#/Vol] 0.6 10*3/uL Low 1.00-4.8 [facility] Comment on above: Performed By: #### C MP, CBC #### [facility] [address] [place] [address] [place] Lymphocytes/100 WBC (Bld) 8.4 % Normal . [facility] Comment on above: Performed By: #### C MP, CBC #### [facility] [address] MCH (RBC) [Entitic mass] 28.0 pg Normal 24.7-34.3 [facility] Comment on above: Performed By: #### C MP, CBC #### [facility] [address] MCV (RBC) [Entitic vol] 84.8 fL Normal 80-100 [facility] Comment on above: Performed By: #### C MP, CBC #### [facility] [address] Mean Corpuscular HGB Conc 33.0 g/dL Normal 32.0-35.0 [facility] Comment on above: Performed By: #### C MP, CBC #### [facility] [address] Monocytes (Bld) [#/Vol] 0.4 10*3/uL Normal 0.0-0.8 [facility] Comment on above: Performed By: #### C MP, CBC #### [facility] [address] [place] [address] [place] Monocytes/100 WBC (Bld) 4.9 % Normal . [facility] Comment on above: Performed By: #### C MP, CBC #### [facility] [address] [place] [address] [place] Neutrophils (Bld) [#/Vol] 6.6 10*3/uL Normal 1.8-7.7 [facility] Comment on above: Performed By: #### C MP, CBC #### [facility] [address] Neutrophils/100 WBC (Bld) 86.4 % Normal . [facility] Comment on above: Performed By: #### C MP, CBC #### [facility] [address] [place] [address] [place] NRBC% 0.0 /100{WBC} Normal 0-0.5 [facility] Comment on above: Performed By: #### C MP, CBC #### [facility] [address] Platelet mean volume (Bld) [Entitic vol] 7.3 fL Normal 6.3-10.7 [facility] Comment on above: Performed By: #### C MP, CBC #### [facility] [address] [place] [id number] [facility] Platelets (Bld) [#/Vol] 378 10*3/uL Normal 150-450 [facility] Comment on above: Performed By: #### C MP, CBC #### [facility] [address] RBC (Bld) [#/Vol] 4.95 10*6/uL Normal 3.60-5.00 [facility] Comment on above: Performed By: #### C MP, CBC #### [facility] [address] WBC (Bld) [#/Vol] 7.6 10*3/uL Normal 3.8-11.6 [facility] Comment on above: Performed By: #### C MP, CBC #### [facility] [address] Comprehensive Metabolic Pane [place]by 05-15-2023 Albumin [Mass/Vol] 4.0 g/dL Normal 3.5-5.7 [facility] Comment on above: Performed By: #### C MP, CBC ####[address] Albumin/Globulin [Mass ratio] 1.3 {ratio} Normal [facility] Comment on above: Performed By: #### C MP, CBC ####[facility] [place], [place] [id number] [facility] ALP [Catalytic activity/Vol] 68 U/L Normal 34-104 [facility] Comment on above: Performed By: #### C MP, CBC ####[place] [id number] [facility] ALT [Catalytic activity/Vol] 13 U/L Normal 7-52 [facility] Comment on above: Performed By: #### C MP, CBC ####[address] Anion gap [Moles/Vol] 6.9 mmol/L Normal 6.0-15.0 [facility] Comment on above: Performed By: #### C MP, CBC ####[facility] [place] [address] [facility] AST [Catalytic activity/Vol] 16 U/L Normal 13-39 [facility] Comment on above: Performed By: #### C MP, CBC ####[facility] [address] [place] [address] [facility] Bilirubin [Mass/Vol] 0.4 mg/dL Normal 0.3-1.0 [facility] Comment on above: Performed By: #### C MP, CBC ####[place] [address] [place] [address] [facility] Calcium [Mass/Vol] 9.7 mg/dL Normal 8.6-10.3 [facility] Comment on above: Performed By: #### C MP, CBC ####[place] [address] [place] [address] [place] Chloride [Moles/Vol] 90 mmol/L Low 98-107 [facility] Comment on above: Performed By: #### C MP, CBC ####[place] [address] [place] [address] [place] CO2 [Moles/Vol] 44.4 mmol/L High 21.0-31.0 [facility] Comment on above: Performed By: #### C MP, CBC ####[place] [address] [place] [address] [facility] Creatinine [Mass/Vol] 0.48 mg/dL Low 0.60-1.20 [facility] Comment on above: Performed By: #### C MP, CBC ####[facility] [place] [address] [place] Creatinine Clr Calc Pharmacy 76.17 Normal [facility] Comment on above: Result Comment: PERF ORMED BY: [facility] [address] [place] [address] PATHOLOGIST EQUIPMENT INSPECTOR JASMEET LIN M.D. Performed By: #### C MP, CBC ####[place] [address] [place] [address] [place] GFR/1.73 sq M.predicted MDRD (S/P/Bld) [Vol rate/Area] mL/min/{1.73_m2} [facility] Comment on above: Performed By: #### C MP, CBC ####[address] [address] [facility] Globulin (S) [Mass/Vol] 3.1 g/dL [facility] Comment on above: Performed By: #### C MP, CBC ####[address] [address] [facility] Glucose [Mass/Vol] 148 mg/dL High 70-100 [facility] Comment on above: Result Comment: [facility][note 2] Glucose Reference Range is dependent on time and content of last meal. Glucose of more than 200 mg/dL in a nonstressed, ambulatory subject supports the diagnosis of Diabetes Mellitus. ADA recommended reference range Performed By: #### C MP, CBC ####[place] [id number] [facility] Potassium [Moles/Vol] 4.3 mmol/L Normal 3.5-5.1 [facility] Comment on above: Performed By: #### C MP, CBC ####[place] [id number] [facility] Protein [Mass/Vol] 7.1 g/dL Normal 6.4-8.9 [facility] Comment on above: Performed By: #### C MP, CBC ####[place] [id number] [place] Sodium [Moles/Vol] 137 mmol/L Normal 136-145 [facility] Comment on above: Performed By: #### C MP, CBC ####[place] [id number] [facility] Urea nitrogen [Mass/Vol] 13 mg/dL Normal 7-25 [facility] Comment on above: Performed By: #### C MP, CBC ####[address] [address] [facility] CT angio chest PE protocolon 05-14-2023 CT angio chest PE protocol [facility] [place] [address] [place] [address] CT Scan Report Signed Patient: Cinthia Stanley MR#: [id number] : 1960 Acct:[id number] Age/Sex: 62 / F ADM Date: 05/14/23 Loc: Room: [address] [place] [address] Type: ADM IN Attending Dr: Cassandra Andersen [...] Wong Byrd M.D.05/14/2023 8:07 AM Dictation Location: [place] [address] Transcribed By: [facility] 05/14/23 0807 Dictated By: Wong Byrd DO 05/14/23 0802 Signed By: 05/14/23 0807 Normal [facility] B-Type Natriuretic Peptideon 05-13-2023 Natriuretic peptide B (Bld) [Mass/Vol] 25.0 pg/mL Normal 5-100 [facility] Comment on above: Result Comment: PERF ORMED BY: [facility] [address] [place] [address] PATHOLOGIST EQUIPMENT INSPECTOR JASMEET LIN M.D. Performed By: #### B SWATCH FOLDER #### [address] COVID-19 / Flu A/B / RSV [...] or Cepheid Disclaimer revoked sooner. PERFORMED BY: [place] [address] PATHOLOGIST EQUIPMENT INSPECTOR JASMEET LIN M.D. Normal [facility] Comment on above: Performed By: #### C OVID19 FLU RSV, CEPHEID NEG ####[facility] [address] [place] [address] Cepheid COVID PCR Negativeon 05-13-2023 SARS-CoV-2 (COVID-19) RNA KRUNAL+probe Ql (Unsp spec) Negative Normal Negative [facility] Comment on above: Result Comment: This is a duplicate Cepheid Xpert Xpress CoV-2/Flu/RSV Plus RNA by RT-PCR result to be used for statistical tracking purpose only. PERFORMED BY: [place] [phone] PATHOLOGIST EQUIPMENT INSPECTOR JASMEET LIN M.D. Performed By: #### C OVID19 FLU RSV, CEPHEID NEG ####[address] Complete Blood Count Auto Di ffon 05-13-2023 Basophils (Bld) [#/Vol] 0.0 10*3/uL Normal 0.0-0.2 [facility] Comment on above: Result Comment: PERF ORMED BY: [place] [phone] PATHOLOGIST EQUIPMENT INSPECTOR JASMEET LIN M.D. Performed By: #### H S TROP, TSH3 wRFLX, CMP, CBC #### [facility] [address] [place] [address] [place] Basophils/100 WBC (Bld) 0.4 % Normal . [facility] Comment on above: Performed By: #### H S TROP, TSH3 wRFLX, CMP, CBC #### [address] Eosinophils (Bld) [#/Vol] 0.0 10*3/uL Normal 0.0-0.45 [facility] Comment on above: Performed By: #### H S TROP, TSH3 wRFLX, CMP, CBC #### [address] Eosinophils/100 WBC (Bld) 0.1 % Normal . [facility] Comment on above: Performed By: #### H S TROP, TSH3 wRFLX, CMP, CBC #### [address] Erythrocyte distribution width (RBC) [Ratio] 13.5 % Normal 11.9-15.3 [facility] Comment on above: Performed By: #### H S TROP, TSH3 wRFLX, CMP, CBC #### [address] Hematocrit (Bld) [Volume fraction] 44.7 % Normal 34.0-46.4 [facility] Comment on above: Performed By: #### H S TROP, TSH3 wRFLX, CMP, CBC #### [place] [address] [place] Hemoglobin (Bld) [Mass/Vol] 14.9 g/dL Normal 11.8-15.4 [facility] Comment on above: Performed By: #### H S TROP, TSH3 wRFLX, CMP, CBC #### [place] [address] [place] Lymphocytes (Bld) [#/Vol] 1.4 10*3/uL Normal 1.00-4.8 [facility] Comment on above: Performed By: #### H S TROP, TSH3 wRFLX, CMP, CBC #### [place] [address] [place] Lymphocytes/100 WBC (Bld) 14.2 % Normal . [facility] Comment on above: Performed By: #### H S TROP, TSH3 wRFLX, CMP, CBC #### [address] MCH (RBC) [Entitic mass] 28.4 pg Normal 24.7-34.3 [facility] Comment on above: Performed By: #### H S TROP, TSH3 wRFLX, CMP, CBC #### [address] MCV (RBC) [Entitic vol] 85.1 fL Normal 80-100 [facility] Comment on above: Performed By: #### H S TROP, TSH3 wRFLX, CMP, CBC #### [address] Mean Corpuscular HGB Conc 33.4 g/dL Normal 32.0-35.0 [facility] Comment on above: Performed By: #### H S TROP, TSH3 wRFLX, CMP, CBC #### [address] Monocytes (Bld) [#/Vol] 0.8 10*3/uL Normal 0.0-0.8 [facility] Comment on above: Performed By: #### H S TROP, TSH3 wRFLX, CMP, CBC #### [address] Monocytes/100 WBC (Bld) 17.56 % Normal 0.00-20.00 [facility] Comment on above: Performed By: #### H S TROP, TSH3 wRFLX, CMP, CBC #### [place] [address] [place] Monocytes/100 WBC (Bld) 7.6 % Normal . [facility] Comment on above: Performed By: #### H S TROP, TSH3 wRFLX, CMP, CBC #### [address] Neutrophils (Bld) [#/Vol] 7.9 10*3/uL High 1.8-7.7 [facility] Comment on above: Performed By: #### H S TROP, TSH3 wRFLX, CMP, CBC #### [facility] [address] [place] [address] Neutrophils/100 WBC (Bld) 77.7 % Normal . [facility] Comment on above: Performed By: #### H S TROP, TSH3 wRFLX, CMP, CBC #### [facility] [address] [place] [address] NRBC% 0.1 /100{WBC} Normal 0-0.5 [facility] Comment on above: Performed By: #### H S TROP, TSH3 wRFLX, CMP, CBC #### [address] Platelet mean volume (Bld) [Entitic vol] 7.4 fL Normal 6.3-10.7 [facility] Comment on above: Performed By: #### H S TROP, TSH3 wRFLX, CMP, CBC #### [facility] [address] [place] [address] Platelets (Bld) [#/Vol] 405 10*3/uL Normal 150-450 [facility] Comment on above: Performed By: #### H S TROP, TSH3 wRFLX, CMP, CBC #### [address] RBC (Bld) [#/Vol] 5.25 10*6/uL High 3.60-5.00 [facility] Comment on above: Performed By: #### H S TROP, TSH3 wRFLX, CMP, CBC #### [address] WBC (Bld) [#/Vol] 10.2 10*3/uL Normal 3.8-11.6 [facility] Comment on above: Performed By: #### H S TROP, TSH3 wRFLX, CMP, CBC #### [address] Comprehensive Metabolic Pane [place] 05-13-2023 Albumin [Mass/Vol] 4.2 g/dL Normal 3.5-5.7 [facility] Comment on above: Performed By: #### H S TROP, TSH3 wRFLX, CMP, CBC #### [address] Albumin/Globulin [Mass ratio] 1.2 {ratio} Normal [facility] Comment on above: Performed By: #### H S TROP, TSH3 wRFLX, CMP, CBC #### [address] ALP [Catalytic activity/Vol] 79 U/L Normal 34-104 [facility] Comment on above: Performed By: #### H S TROP, TSH3 wRFLX, CMP, CBC #### [address] ALT [Catalytic activity/Vol] 15 U/L Normal 7-52 [facility] Comment on above: Performed By: #### H S TROP, TSH3 wRFLX, CMP, CBC #### [address] Anion gap [Moles/Vol] 12.3 mmol/L Normal 6.0-15.0 [facility] Comment on above: Performed By: #### H S TROP, TSH3 wRFLX, CMP, CBC #### [address] AST [Catalytic activity/Vol] 17 U/L Normal 13-39 [facility] Comment on above: Performed By: #### H S TROP, TSH3 wRFLX, CMP, CBC #### [place] [address] [place] Bilirubin [Mass/Vol] 0.3 mg/dL Normal 0.3-1.0 [facility] Comment on above: Performed By: #### H S TROP, TSH3 wRFLX, CMP, CBC #### [address] Calcium [Mass/Vol] 10.0 mg/dL Normal 8.6-10.3 [facility] Comment on above: Performed By: #### H S TROP, TSH3 wRFLX, CMP, CBC #### [address] Chloride [Moles/Vol] 89 mmol/L Low 98-107 [facility] Comment on above: Performed By: #### H S TROP, TSH3 wRFLX, CMP, CBC #### [address] CO2 [Moles/Vol] 41.7 mmol/L High 21.0-31.0 [facility] Comment on above: Performed By: #### H S TROP, TSH3 wRFLX, CMP, CBC #### [address] Creatinine [Mass/Vol] 0.47 mg/dL Low 0.60-1.20 [facility] Comment on above: Performed By: #### H S TROP, TSH3 wRFLX, CMP, CBC #### [address] Creatinine Clr Calc Pharmacy 80.11 [facility] Comment on above: Result Comment: PERF ORMED BY: [place] [address] PATHOLOGIST EQUIPMENT INSPECTOR JASMEET LIN M.D. Performed By: #### H S TROP, TSH3 wRFLX, CMP, CBC #### [address] GFR/1.73 sq M.predicted MDRD (S/P/Bld) [Vol rate/Area] mL/min/{1.73_m2} [facility] Comment on above: Performed By: #### H S TROP, TSH3 wRFLX, CMP, CBC #### [address] Globulin (S) [Mass/Vol] 3.5 g/dL [facility] Comment on above: Performed By: #### H S TROP, TSH3 wRFLX, CMP, CBC #### [address] [place] [address] [place] Glucose [Mass/Vol] 104 mg/dL High 70-100 [facility] Comment on above: Result Comment: [facility][note 2] Glucose Reference Range is dependent on time and content of last meal. Glucose of more than 200 mg/dL in a nonstressed, ambulatory subject supports the diagnosis of Diabetes Mellitus. ADA recommended reference range Performed By: #### H S TROP, TSH3 wRFLX, CMP, CBC #### [address] Potassium [Moles/Vol] 4.0 mmol/L Normal 3.5-5.1 [facility] Comment on above: Performed By: #### H S TROP, TSH3 wRFLX, CMP, CBC #### [address] Protein [Mass/Vol] 7.7 g/dL Normal 6.4-8.9 [facility] Comment on above: Performed By: #### H S TROP, TSH3 wRFLX, CMP, CBC #### [address] Sodium [Moles/Vol] 139 mmol/L Normal 136-145 [facility] Comment on above: Performed By: #### H S TROP, TSH3 wRFLX, CMP, CBC #### [address] Urea nitrogen [Mass/Vol] 13 mg/dL Normal 7-25 [facility] Comment on above: Performed By: #### H S TROP, TSH3 wRFLX, CMP, CBC #### [place] [address] [place] ECG 12 lead ECGon 05-13-2023 ECG 12 lead ECG [facility] [place] [address] [place] [address] Electrocardiograph Report Signed Patient: Cinthia Stanley MR#: [id number] : 1960 Acct:[id number] Age/Sex: 62 / F ADM Date: 05/13/23 Loc: ER Room: Type: PRE ER Attending Dr: Ordering Provider: TEMP, PROVIDER Date of Service: 05/13/23 ECG/ECG 12 lead [...] variant artifact Confirmed by Kd Simpson DO ([id number]) on 05/13/2023 7:17:32 PM Referred By: Electronically Signed By:Kd Simpson DO Transcribed By: MUS Signed By Kd Simpson DO 1916 Normal [facility] Thyroid Stim Hormone w/Rflxo n 05-13-2023 Thyroid Stim Hormone w/Rflx 0.89 u[iU]/mL Normal 0.45-5.33 [facility] Comment on above: Result Comment: PERF ORMED BY: [place] [address] PATHOLOGIST EQUIPMENT INSPECTOR JASMEET LIN M.D. Performed By: #### H S TROP, TSH3 wRFLX, CMP, CBC #### [facility] [address] [place], [place] [address] [place] Troponin I High Sensitivityo n 05-13-2023 Troponin I High Sensitivity 3.4 pg/mL Normal 0.0-15.0 [facility] Comment on above: Result Comment: PERF ORMED BY: [place] [address] PATHOLOGIST EQUIPMENT INSPECTOR JASMEET LIN M.D. Performed By: #### H S TROP #### [facility] [facility] [address] [place] [address] [facility] Troponin I High Sensitivity 3.9 pg/mL Normal 0.0-15.0 [facility] Comment on above: Result Comment: PERF ORMED BY: [address] [id number] PATHOLOGIST EQUIPMENT INSPECTOR JASMEET LIN M.D. Performed By: #### H S TROP, TSH3 wRFLX, CMP, CBC #### [facility] [address] XR chest 2V*on 05-13-2023 XR chest 2V* [facility] [place] [address] [place] [address] XRay Report Signed Patient: Cinthia Stanley MR#: [id number] : 1960 Acct:[id number] Age/Sex: 62 / F ADM Date: 05/13/23 Loc: ER Room: Type: [facility] ER Attending Dr: Copies to: Stacia [...] Wong Byrd M.D.05/13/2023 8:53 PM Dictation Location: [place] [address] Transcribed By: [facility] 05/13/232052 Dictated By: Wong Byrd DO 05/13/232051 Signed By: 05/13/232052 [facility] CNOVon 11-27-2022 CNOV Office Visit (RADTSA ) CINTHIA STANLEY ([id number]) 1960 F Date Time Provider Department 11/27/22 [...] COPD, who is diagnosed with Stage IA3, [id number], non-small cell lung cancer arising from a [...] been following up with pulmonary therapy at [facility] and with her bone crusher Dr. Driver and using her nebulizers. She [...] COPD, who is diagnosed with Stage IA3, [id number], non-small cell lung cancer arising from a [...] the chest. She will follow with her bone crusher Dr. Driver to optimize her respiratory function [...] total o (more content not included)... Normal [facility] 11-18-2022 CNPN Telephone (HEMTSA) CINTHIA STANLEY ([id number]) 1960 F Date Time Provider Department 11/18/22 CED VICTORIA During your visit today, we recorded the following information about you: Ced Victoria RN 11/18/2022 1:43 PM Signed Pt called for CT 11/19/[address]. [address] completed 09/24/22 at [facility]. CT chest verified and will send images/report. LORENZO: Would you like to cancel CT? Please advise LUCIE Baer Saju, MD 11/18/2022 2:11 PM Signed Yes, please cancel CT tomorrow. In addition to the images, please request any office notes from Dr. Bass as well as her bone crusher. Thanks! Ced Park RN 11/18/2022 2:50 PM Signed Pt notified, CT canceled. Katerina working on records from Dr Bass and Dr Driver. Images/report being pushed from [facility]. LUCIE Baer Ariana, LPN 11/18/2022 3:33 PM [...] Encounter Status:Closed by CED VICTORIA on 11/19/22 [facility] CULTURE BLOODon 09-07-2022 Microscopic examination [...] F Trimethoprim/Sulfameth oxazole 20 S F Normal [facility] Comment on above: Performed By: #### B [id number] #### [facility] [address] [place] [address] Dr. Geri Pradhan CBC AUTO DIFFon 09-05-2022 BASO # 0.0 103/ul Normal 0.0-0.1 [facility] Comment on above: Performed By: #### C BC #### [facility] [address] [place] [address] Dr. Geri Pradhan Basophils/100 WBC (Bld) 0.2 % Normal 0.2-2.0 [facility] Comment on above: Performed By: #### C BC #### [facility] [address] [place] [address] Dr. Geri Pradhan EO # 0.0 103/ul Normal 0.0-0.7 [facility] Comment on above: Performed By: #### C BC #### [facility] [address] [place] [address] Dr. Geri Pradhan Eosinophils/100 WBC (Bld) 0.0 % Critically low 0.9-7.0 [facility] Comment on above: Performed By: #### C BC #### [facility] [address] [place] [address] Dr. Geri Pradhan Erythrocyte distribution width (RBC) [Ratio] 13.8 % Normal 11.0-15.0 [facility] Comment on above: Performed By: #### C BC #### [facility] [address] [place] [address] Dr. Geri Pradhan Hematocrit (Bld) [Volume fraction] 38.8 % Normal 36.0-48.0 [facility] Comment on above: Performed By: #### C BC #### [facility] [address] [place] [address] Dr. Geri Pradhan Hemoglobin (Bld) [Mass/Vol] 11.7 g/dL Critically low 12.0-16.0 [facility] Comment on above: Performed By: #### C BC #### [facility] [address] [address] [address] Geri Pradhan IG # 0.27 10e3/ul Critically high 0.00-0.03 [facility] Comment on above: Performed By: #### C BC #### [facility] [address] [place] [address] [address] Geri Pradhan IG % 2.9 % Critically high 0.0-0.5 [facility] Comment on above: Performed By: #### C BC #### [facility] [address] [place] [address] Dr. Geri Pradhan LYMPH # 0.4 103/ul Critically low 1.2-3.8 [facility] Comment on above: Performed By: #### C BC #### [facility] [address] [place] [address] Dr. Geri Pradhan Lymphocytes/100 WBC (Bld) 4.4 % Critically low 20.5-60.0 [facility] Comment on above: Performed By: #### C BC #### [facility] [address] [place] [address] Dr. Grei Pradhan MANUAL DIFF REQ NO Normal [facility] Comment on above: Performed By: #### C BC #### [facility] [address] [place] [address] Dr. Geri Pradhan MCH (RBC) [Entitic mass] 26.8 pg Normal 26.7-34.0 [facility] Comment on above: Performed By: #### C BC #### [facility] [address] [place] [address] Dr. Geri Pradhan MCHC (RBC) [Mass/Vol] 30.2 g/dL Normal 29.9-35.2 [facility] Comment on above: Performed By: #### C BC #### [facility] [address] [place] [address] Dr. Geri Pradhan MCV (RBC) [Entitic vol] 88.8 fL Normal 81.0-99.0 [facility] Comment on above: Performed By: #### C BC #### [facility] [address] [place] [address] [address] Geri Pradhan MONO # 0.3 103/ul Normal 0.3-0.8 [facility] Comment on above: Performed By: #### C BC #### [facility] [address] [place] [address] Dr. Geri Pradhan Monocytes/100 WBC (Bld) 3.6 % Normal 1.7-12.0 [facility] Comment on above: Performed By: #### C BC #### [facility] [address] [place] [address] Dr. Geri Pradhan NEUT # 8.2 103/ul Critically high 1.4-6.5 [facility] Comment on above: Performed By: #### C BC #### [facility] [address] [place] [address] Dr. Geri Pradhan Neutrophils/100 WBC (Bld) 88.9 % Critically high 43.0-75.0 [facility] Comment on above: Performed By: #### C BC #### [facility] [address] [place] [address] Dr. Geri Pradhan Platelet mean volume (Bld) [Entitic vol] 9.1 fL Critically low 9.5-13.5 [facility] Comment on above: Performed By: #### C BC #### [facility] [address] [place] [address] Dr. Geri Pradhan PLT 314 103/ul Normal 150-450 [facility] Comment on above: Performed By: #### C BC #### [facility] [address] [place] [address] Dr. Geri Pradhan RBC 4.37 106/ul Normal 4.20-5.40 [facility] Comment on above: Performed By: #### C BC #### [facility] [address] [place] [address] Dr. Geri Pradhan WBC 9.2 103/ul Normal 4.0-11.0 [facility] Comment on above: Performed By: #### C BC #### [facility] [address] [place] [address] Dr. Geri Pradhan PROF 14(COMP METB)on 023 Albumin [Mass/Vol] 2.7 g/dL Critically low 3.4-5.0 Th [facility] Comment on above: Performed By: #### Gerry INGRAM, CMP #### [facility] [address] [place] [address] [address] Geri Pradhan Albumin/Globulin [Mass ratio] 0.7 {ratio} Normal [facility] Comment on above: Performed By: #### Gerry INGRAM, CMP #### [facility] [address] [address] [address] Geri Pradhan ALP [Catalytic activity/Vol] 65 U/L Normal 46-116 [facility] Comment on above: Performed By: #### Gerry INGRAM, CMP #### [facility] [address] [address] [address] Geri Pradhan ALT [Catalytic activity/Vol] 23 U/L Normal 14-59 [facility] Comment on above: Performed By: #### Gerry INGRAM, CMP #### [facility] [address] [address] [address] Geri Pradhan Anion gap [Moles/Vol] 2.0 mmol/L Normal [facility] Comment on above: Performed By: #### Gerry INGRAM, CMP #### [facility] [address] [place] [address] [address] Geri Pradhan AST [Catalytic activity/Vol] 17 U/L Normal 15-37 [facility] Comment on above: Performed By: #### Gerry INGRAM, CMP #### [facility] [address] [place] [address] [address] Geri Pradhan Bilirubin [Mass/Vol] 0.1 mg/dL Critically low 0.2-1.0 [facility] Comment on above: Performed By: #### Gerry INGRAM, CMP #### [facility] [address] [place] [address] [address] Geri Pradhan Calcium [Mass/Vol] 9.0 mg/dL Normal 8.5-10.1 [facility] Comment on above: Performed By: #### Gerry INGRAM, CMP #### [facility] [address] [place] [address] [address] Geri Pradhan Chloride [Moles/Vol] 99 mmol/L Normal 98-107 [facility] Comment on above: Performed By: #### Gerry INGRAM, CMP #### [facility] [address] [place] [address] [address] Geri Pradhan CO2 [Moles/Vol] 45.3 mmol/L Critically high 21.0-32.0 [facility] Comment on above: Performed By: #### Gerry INGRAM, CMP #### [facility] [address] [address] [address] Geri Pradhan Creatinine [Mass/Vol] 0.50 mg/dL Critically low 0.55-1.02 [facility] Comment on above: Performed By: #### Gerry INGRAM, CMP #### [facility] [address] [place] [address] Dr. Geri Pradhan EGFR-AF NIGERIAN >60 Normal >=60 [facility] Comment on above: Performed By: #### Gerry INGRAM, CMP #### [facility] [address] [place] [address] [address] Geri Pradhan EGFR-NON AF NIGERIAN >60 Normal >=60 [facility] Comment on above: Performed By: #### Gerry INGRAM, CMP #### [facility] [address] [place] [address] [address] Geri Pradhan Globulin (S) [Mass/Vol] 3.7 g/dL Normal [facility] Comment on above: Performed By: #### Gerry INGRAM, CMP #### [facility] [address] [place] [address] Dr. Geri Pradhan Glucose [Mass/Vol] 180 mg/dL Critically high 74-106 [facility] Comment on above: Performed By: #### Gerry INGRAM, CMP #### [facility] [address] [place] [address] Dr. Geri Pradhan Potassium [Moles/Vol] 4.3 mmol/L Normal 3.5-5.1 [facility] Comment on above: Performed By: #### Gerry INGRAM, CMP #### [facility] [address] [address] [address] Geri Pradhan Protein [Mass/Vol] 6.4 g/dL Normal 6.4-8.2 [facility] Comment on above: Performed By: #### Gerry INGRAM, CMP #### [facility] [address] [address] [address] Geri Pradhan Sodium [Moles/Vol] 142 mmol/L Normal 136-145 [facility] Comment on above: Performed By: #### Gerry INGRAM, CMP #### [facility] [address] [place] [address] Dr. Geri Pradhan Urea nitrogen [Mass/Vol] 13.0 mg/dL Normal 7.0-18.0 [facility] Comment on above: Performed By: #### Gerry INGRAM, CMP #### [facility] [address] [place] [address] Dr. Geri Pradhan Urea nitrogen/Creatinine [Mass ratio] 26.0 mg/mg Normal [facility] Comment on above: Performed By: #### Gerry INGRAM, CMP #### [facility] [address] [place] [address] Dr. Geri Pradhan THEOPHYLLINEon 09-05-2022 THEOPHYLLINE <2.0 Critically low 10.0-20.0 [facility] Comment on above: Performed By: #### Gerry INGRAM, CMP #### [facility] [address] [place] [address] Dr. Geri Pradhan CBC AUTO DIFFon 09-04-2022 BASO # 0.0 103/ul Normal 0.0-0.1 [facility] Comment on above: Performed By: #### R SPLUS #### [facility] [address] [place] [address] Dr. Geri Pradhan Basophils/100 WBC (Bld) 0.1 % Critically low 0.2-2.0 [facility] Comment on above: Performed By: #### R SPLUS #### [facility] [address] [place] [address] Dr. Geri Pradhan EO # 0.0 103/ul Normal 0.0-0.7 [facility] Comment on above: Performed By: #### R SPLUS #### [facility] [address] [place] [address] Dr. Geri Pradhan Eosinophils/100 WBC (Bld) 0.0 % Critically low 0.9-7.0 [facility] Comment on above: Performed By: #### R SPLUS #### [facility] [address] [place] [address] Dr. Geri Pradhan Erythrocyte distribution width (RBC) [Ratio] 13.4 % Normal 11.0-15.0 [facility] Comment on above: Performed By: #### R SPLUS #### [facility] [address] [place] [address] Dr. Geri Pradhan Hematocrit (Bld) [Volume fraction] 42.8 % Normal 36.0-48.0 [facility] Comment on above: Performed By: #### R SPLUS #### [facility] [address] [place] [address] Dr. Geri Pradhan Hemoglobin (Bld) [Mass/Vol] 12.8 g/dL Normal 12.0-16.0 [facility] Comment on above: Performed By: #### R SPLUS #### [facility] [address] [place] [address] Dr. Geri Pradhan IG # 0.25 10e3/ul Critically high 0.00-0.03 [facility] Comment on above: Performed By: #### R SPLUS #### [facility] [address] [place] [address] Dr. Geri Pradhan IG % 2.0 % Critically high 0.0-0.5 [facility] Comment on above: Performed By: #### R SPLUS #### [facility] [address] [place] [address] Dr. Geri Pradhan LYMPH # 0.4 103/ul Critically low 1.2-3.8 [facility] Comment on above: Performed By: #### R SPLUS #### [facility] [address] [place] [address] Dr. Geri Pradhan Lymphocytes/100 WBC (Bld) 3.6 % Critically low 20.5-60.0 [facility] Comment on above: Performed By: #### R SPLUS #### [facility] [address] [place] [address] Dr. Geri Pradhan MANUAL DIFF REQ NO Normal [facility] Comment on above: Performed By: #### R SPLUS #### [facility] [address] [place] [address] Dr. Geri Pradhan MCH (RBC) [Entitic mass] 26.8 pg Normal 26.7-34.0 [facility] Comment on above: Performed By: #### R SPLUS #### [facility] [address] [place] [address] Dr. Geri Pradhan MCHC (RBC) [Mass/Vol] 29.9 g/dL Normal 29.9-35.2 [facility] Comment on above: Performed By: #### R SPLUS #### [facility] [address] [place] [address] Dr. Geri Pradhan MCV (RBC) [Entitic vol] 89.5 fL Normal 81.0-99.0 [facility] Comment on above: Performed By: #### R SPLUS #### [facility] [address] [place] [address] Dr. Geri Pradhan MONO # 0.2 103/ul Critically low 0.3-0.8 [facility] Comment on above: Performed By: #### R SPLUS #### [facility] [address] [place] [address] Dr. Geri Pradhan Monocytes/100 WBC (Bld) 1.9 % Normal 1.7-12.0 [facility] Comment on above: Performed By: #### R SPLUS #### [facility] [address] [place] [address] Dr. Geri Pradhan NEUT # 11.4 103/ul Critically high 1.4-6.5 [facility] Comment on above: Performed By: #### R SPLUS #### [facility] [address] [place] [address] Dr. Geri Pradhan Neutrophils/100 WBC (Bld) 92.4 % Critically high 43.0-75.0 [facility] Comment on above: Performed By: #### R SPLUS #### [facility] [address] [address] [address] Geri Pradhan Platelet mean volume (Bld) [Entitic vol] 8.9 fL Critically low 9.5-13.5 [facility] Comment on above: Performed By: #### R SPLUS #### [facility] [address] [address] [address] Geri Pradhan PLT 350 103/ul Normal 150-450 [facility] Comment on above: Performed By: #### R SPLUS #### [facility] [address] [address] [address] Geri Pradhan RBC 4.78 106/ul Normal 4.20-5.40 [facility] Comment on above: Performed By: #### R SPLUS #### [facility] [address] [place] [address] Dr. Geri Pradhan WBC 12.3 103/ul Critically high 4.0-11.0 [facility] Comment on above: Performed By: #### R SPLUS #### [facility] [address] [place] [address] Dr. Geri Pradhan POINT OF CARE GLUCOSEon 08-12 Glucose [Mass/Vol] 142 mg/dL Critically high 74-106 [facility] Comment on above: Performed By: #### P OCGLUC #### [facility] [address] [place] [address] Dr. Geri Pradhan Glucose [Mass/Vol] 198 mg/dL Critically high 74-106 [facility] Comment on above: Performed By: #### Gerry INGRAM CMP #### [facility] [address] [place] [address] Dr. Geri Pradhan Glucose [Mass/Vol] 147 mg/dL Critically high 74-106 [facility] Comment on above: Performed By: #### T JUAN JOSE, CMP #### [facility] [address] [place] [address] Dr. Geri Pradhan PROF 14(COMP METB)on 023 Albumin [Mass/Vol] 2.9 g/dL Critically low 3.4-5.0 Th [facility] Comment on above: Performed By: #### Gerry INGRAM, CMP #### [facility] [address] [address] [address] Geri Pradhan Albumin/Globulin [Mass ratio] 0.7 {ratio} Normal [facility] Comment on above: Performed By: #### Gerry INGRAM, CMP #### [facility] [address] [address] [address] Geri Pradhan ALP [Catalytic activity/Vol] 73 U/L Normal 46-116 [facility] Comment on above: Performed By: #### Gerry INGRAM, CMP #### [facility] [address] [address] [address] Geri Pradhan ALT [Catalytic activity/Vol] 24 U/L Normal 14-59 [facility] Comment on above: Performed By: #### Gerry INGRAM, CMP #### [facility] [address] [place] [address] Dr. Geri Pradhan Anion gap [Moles/Vol] 3.2 mmol/L Normal [facility] Comment on above: Performed By: #### Gerry INGRAM, CMP #### [facility] [address] [address] [address] Geri Pradhan AST [Catalytic activity/Vol] 17 U/L Normal 15-37 [facility] Comment on above: Performed By: #### Gerry INGRAM, CMP #### [facility] [address] [address] [address] Geri Pradhan Bilirubin [Mass/Vol] 0.1 mg/dL Critically low 0.2-1.0 [facility] Comment on above: Performed By: #### Gerry INGRAM, CMP #### [facility] [address] [address] [address] Geri Pradhan Calcium [Mass/Vol] 9.4 mg/dL Normal 8.5-10.1 [facility] Comment on above: Performed By: #### Gerry INGRAM, CMP #### [facility] [address] [address] [address] Geri Pradhan Chloride [Moles/Vol] 100 mmol/L Normal 98-107 [facility] Comment on above: Performed By: #### Gerry INGRAM, CMP #### [facility] [address] [address] [address] Geri Pradhan CO2 [Moles/Vol] 43.2 mmol/L Critically high 21.0-32.0 [facility] Comment on above: Performed By: #### Gerry INGRAM, CMP #### [facility] [address] [place] [address] Dr. Geri Pradhan Creatinine [Mass/Vol] 0.52 mg/dL Critically low 0.55-1.02 [facility] Comment on above: Performed By: #### Gerry INGRAM, CMP #### [facility] [address] [place] [address] Dr. Geri Pradhan EGFR-AF NIGERIAN >60 Normal >=60 [facility] Comment on above: Performed By: #### Gerry INGRAM, CMP #### [facility] [address] [place] [address] Dr. Geri Pradhan EGFR-NON AF NIGERIAN >60 Normal >=60 [facility] Comment on above: Performed By: #### Gerry INGRAM, CMP #### [facility] [address] [place] [address] Dr. Geri Pradhan Globulin (S) [Mass/Vol] 4.2 g/dL Normal [facility] Comment on above: Performed By: #### Gerry INGRAM, CMP #### [facility] [address] [place] [address] Dr. Geri Pradhan Glucose [Mass/Vol] 138 mg/dL Critically high 74-106 [facility] Comment on above: Performed By: #### Gerry INGRAM, CMP #### [facility] [address] [place] [address] Dr. Geri Pradhan Potassium [Moles/Vol] 4.4 mmol/L Normal 3.5-5.1 [facility] Comment on above: Performed By: #### Gerry INGRAM, CMP #### [facility] [address] [address] [address] Geri Pradhan Protein [Mass/Vol] 7.1 g/dL Normal 6.4-8.2 [facility] Comment on above: Performed By: #### T JUAN JOSE, CMP #### [facility] [address] [place] [address] Dr. Geri Pradhan Sodium [Moles/Vol] 142 mmol/L Normal 136-145 [facility] Comment on above: Performed By: #### T JUAN JOSE, CMP #### [facility] [address] [place] [address] Dr. Geri Pradhan Urea nitrogen [Mass/Vol] 15.0 mg/dL Normal 7.0-18.0 [facility] Comment on above: Performed By: #### Gerry INGRAM, CMP #### [facility] [address] [place] [address] Dr. Geri Pradhan Urea nitrogen/Creatinine [Mass ratio] 28.8 mg/mg Normal [facility] Comment on above: Performed By: #### Gerry INGRAM, CMP #### [facility] [address] [place] [address] Dr. Geri Pradhan RESPIRATORY PANEL PLUSon Adenovirus Not detected Normal NOT DETECTED [facility] Comment on above: Performed By: #### R SPLUS #### [facility] [address] [place] [address] Dr. Geri Joe. Parapertusis Not detected Normal NOT DETECTED [facility] Comment on above: Performed By: #### R SPLUS #### [facility] [address] [place] [address] Dr. Geri Pradhan B. Pertussis Not detected Normal NOT DETECTED [facility] Comment on above: Performed By: #### R SPLUS #### [facility] [address] [place] [address] Dr. Geri Pradhan Chlamydia Pneumoniae Not detected Normal NOT DETECTED [facility] Comment on above: Performed By: #### R SPLUS #### [facility] [address] [place] [address] Dr. Geri Pradhan Coronavirus 229E Not detected Normal NOT DETECTED [facility] Comment on above: Performed By: #### R SPLUS #### [facility] [address] [address] [address] Geri Pradhan Coronavirus HKU1 Not detected Normal NOT DETECTED [facility] Comment on above: Performed By: #### R SPLUS #### [facility] [address] [place] [address] Dr. Geri Pradhan Coronavirus NL63 Not detected Normal NOT DETECTED [facility] Comment on above: Performed By: #### R SPLUS #### [facility] [address] [place] [address] Dr. Geri Pradhan Coronavirus OC43 Not detected Normal NOT DETECTED [facility] Comment on above: Performed By: #### R SPLUS #### [facility] [address] [place] [address] Dr. Geri Pradhan Influenza A H1 Not detected Normal NOT DETECTED [facility] Comment on above: Performed By: #### R SPLUS #### [facility] [address] [place] [address] Dr. Geri Pradhan Influenza A H1 2009 Not detected Normal NOT DETECTED [facility] Comment on above: Performed By: #### R SPLUS #### [facility] [address] [place] [address] Dr. Geri Pradhan Influenza A H3 Not detected Normal NOT DETECTED [facility] Comment on above: Performed By: #### R SPLUS #### [facility] [address] [place] [address] Dr. Geri Pradhan Influenza B Not detected Normal NOT DETECTED [facility] Comment on above: Performed By: #### R SPLUS #### [facility] [address] [place] [address] Dr. Geri Pradhan Metapneumovirus Not detected Normal NOT DETECTED [facility] Comment on above: Performed By: #### R SPLUS #### [facility] [address] [place] [address] Dr. Geri Pradhan Mycoplas. Pneumoniae Not detected Normal NOT DETECTED [facility] Comment on above: Performed By: #### R SPLUS #### [facility] [address] [place] [address] Dr. Geri Pradhan Parainfluenza 1 Not detected Normal NOT DETECTED [facility] Comment on above: Performed By: #### R SPLUS #### [facility] [address] [place] [address] Dr. Geri Pradhan Parainfluenza 2 Not detected Normal NOT DETECTED [facility] Comment on above: Performed By: #### R SPLUS #### [facility] [address] [place] [address] Dr. Geri Pradhan Parainfluenza 3 Detected Abnormal NOT DETECTED The [facility] Comment on above: Performed By: #### R SPLUS #### [facility] [address] [place] [address] Dr. Geri Pradhan Parainfluenza 4 Not detected Normal NOT DETECTED [facility] Comment on above: Performed By: #### R SPLUS #### [facility] [address] [place] [address] Dr. Geri Pradhan Rhino/Enterovirus Not detected Normal NOT DETECTED [facility] Comment on above: Performed By: #### R SPLUS #### [facility] [address] [place] [address] Dr. Geri Pradhan RP2 Header 1 RESPIRATORY PANEL: VIRUSES Normal [facility] Comment on above: Performed By: #### R SPLUS #### [facility] [address] [place] [address] Dr. Geri NUNEZ Header 2 RESPIRATORY PANEL: BACTERIA Normal [facility] Comment on above: Performed By: #### R SPLUS #### [facility] [address] [place] [address] Dr. Geri Pradhan RSV Not detected Normal NOT DETECTED The [facility] Comment on above: Performed By: #### R SPLUS #### [facility] [address] [place] [address] Dr. Geri Pradhan SARS-CoV-2 (COVID-19) RNA KRUNAL+probe Ql (Unsp spec) Not detected Normal NOT DETECTED [facility] Comment on above: Performed By: #### R SPLUS #### [facility] [address] [address] [address] Geri Pradhan THEOPHYLLINEon 09-04-2022 THEOPHYLLINE <2.0 Critically low 10.0-20.0 [facility] Comment on above: Performed By: #### T JUAN JOSE, CMP #### [facility] [address] [place] [address] Dr. Geri Pradhan CBC AUTO DIFFon 09-03-2022 BASO # 0.0 103/ul Normal 0.0-0.1 [facility] Comment on above: Performed By: #### P OCGLUC #### [facility] [address] [place] [address] Dr. Geri Pradhan Basophils/100 WBC (Bld) 0.1 % Critically low 0.2-2.0 [facility] Comment on above: Performed By: #### P OCGLUC #### [facility] [address] [place] [address] Dr. Geri Pradhan EO # 0.0 103/ul Normal 0.0-0.7 [facility] Comment on above: Performed By: #### P OCGLUC #### [facility] [address] [place] [address] Dr. Geri Pradhan Eosinophils/100 WBC (Bld) 0.0 % Critically low 0.9-7.0 [facility] Comment on above: Performed By: #### P OCGLUC #### [facility] [address] [place] [address] Dr. Geri Pradhan Erythrocyte distribution width (RBC) [Ratio] 13.0 % Normal 11.0-15.0 [facility] Comment on above: Performed By: #### P OCGLUC #### [facility] [address] [place] [address] Dr. Geri Pradhan Hematocrit (Bld) [Volume fraction] 42.1 % Normal 36.0-48.0 [facility] Comment on above: Performed By: #### P OCGLUC #### [facility] [address] [place] [address] Dr. Geri Pradhan Hemoglobin (Bld) [Mass/Vol] 12.3 g/dL Normal 12.0-16.0 [facility] Comment on above: Performed By: #### P OCGLUC #### [facility] [address] [address] [address] Geri Pradhan IG # 0.13 10e3/ul Critically high 0.00-0.03 [facility] Comment on above: Performed By: #### P OCGLUC #### [facility] [address] [address] [address] Geri Pradhan IG % 1.2 % Critically high 0.0-0.5 [facility] Comment on above: Performed By: #### P OCGLUC #### [facility] [address] [address] [address] Geri Pradhan LYMPH # 0.6 103/ul Critically low 1.2-3.8 [facility] Comment on above: Performed By: #### P OCGLUC #### [facility] [address] [place] [address] Dr. Geri Pradhan Lymphocytes/100 WBC (Bld) 6.0 % Critically low 20.5-60.0 [facility] Comment on above: Performed By: #### P OCGLUC #### [facility] [address] [place] [address] Dr. Geri Pradhan MANUAL DIFF REQ NO Normal [facility] Comment on above: Performed By: #### P OCGLUC #### [facility] [address] [address] [address] Geri Pradhan MCH (RBC) [Entitic mass] 26.0 pg Critically low 26.7-34.0 [facility] Comment on above: Performed By: #### P OCGLUC #### [facility] [address] [address] [address] Geri Pradhan MCHC (RBC) [Mass/Vol] 29.2 g/dL Critically low 29.9-35.2 [facility] Comment on above: Performed By: #### P OCGLUC #### [facility] [address] [address] [address] Geri Pradhan MCV (RBC) [Entitic vol] 89.0 fL Normal 81.0-99.0 [facility] Comment on above: Performed By: #### P OCGLUC #### [facility] [address] [place] [address] Dr. Geri Pradhan MONO # 0.2 103/ul Critically low 0.3-0.8 [facility] Comment on above: Performed By: #### P OCGLUC #### [facility] [address] [place] [address] Dr. Geri Pradhan Monocytes/100 WBC (Bld) 2.0 % Normal 1.7-12.0 [facility] Comment on above: Performed By: #### P OCGLUC #### [facility] [address] [place] [address] Dr. Geri Pradhan NEUT # 9.6 103/ul Critically high 1.4-6.5 [facility] Comment on above: Performed By: #### P OCGLUC #### [facility] [address] [place] [address] Dr. Geri Pradhan Neutrophils/100 WBC (Bld) 90.7 % Critically high 43.0-75.0 [facility] Comment on above: Performed By: #### P OCGLUC #### [facility] [address] [place] [address] Dr. Geri Pradhan Platelet mean volume (Bld) [Entitic vol] 9.1 fL Critically low 9.5-13.5 [facility] Comment on above: Performed By: #### P OCGLUC #### [facility] [address] [place] [address] Dr. Geri Pradhan PLT 302 103/ul Normal 150-450 [facility] Comment on above: Performed By: #### P OCGLUC #### [facility] [address] [place] [address] Dr. Geri Pradhan RBC 4.73 106/ul Normal 4.20-5.40 [facility] Comment on above: Performed By: #### P OCGLUC #### [facility] [address] [place] [address] Dr. Geri Pradhan WBC 10.6 103/ul Normal 4.0-11.0 [facility] Comment on above: Performed By: #### P OCGLUC #### [facility] [address] [address] [address] Geri Pradhan POINT OF CARE GLUCOSEon 08-12 Glucose [Mass/Vol] 130 mg/dL Critically high -106 [facility] Comment on above: Performed By: #### Gerry INGRAM, CMP #### [facility] [address] [address] [address] Geri Pradhan Glucose [Mass/Vol] 217 mg/dL Critically high 74-106 [facility] Comment on above: Performed By: #### Gerry INGRAM, CMP #### [facility] [address] [address] [address] Geri Pradhan Glucose [Mass/Vol] 327 mg/dL Critically high -106 [facility] Comment on above: Performed By: #### C VDTBH #### [facility] [address] [address] [address] Geri Pradhan Glucose [Mass/Vol] 146 mg/dL Critically high -106 [facility] Comment on above: Performed By: #### Gerry INGRAM, CMP #### [facility] [address] [address] [address] Geri Pradhan Glucose [Mass/Vol] 174 mg/dL Critically high [facility]106 [facility] Comment on above: Performed By: #### Gerry INGRAM, CMP #### [facility] [address] [address] [address] Geri Pradhan PROF 14(COMP METB)on 023 Albumin [Mass/Vol] 2.9 g/dL Critically low 3.4-5.0 [facility] Comment on above: Performed By: #### P OCGLUC #### [facility] [address] [place] [address] Dr. Geri Pradhan Albumin/Globulin [Mass ratio] 0.7 {ratio} Normal [facility] Comment on above: Performed By: #### P OCGLUC #### [facility] [address] [address] [address] Geri Pradhan ALP [Catalytic activity/Vol] 74 U/L Normal 46-116 [facility] Comment on above: Performed By: #### P OCGLUC #### [facility] [address] [address] [address] Geri Pradhan ALT [Catalytic activity/Vol] 21 U/L Normal 14-59 [facility] Comment on above: Performed By: #### P OCGLUC #### [facility] [address] [address] [address] Geri Pradhan Anion gap [Moles/Vol] 4.4 mmol/L Normal [facility] Comment on above: Performed By: #### P OCGLUC #### [facility] [address] [address] [address] Geri Pradhan AST [Catalytic activity/Vol] 17 U/L Normal 15-37 [facility] Comment on above: Performed By: #### P OCGLUC #### [facility] [address] [address] [address] Geri Pradhan Bilirubin [Mass/Vol] 0.2 mg/dL Normal 0.2-1.0 [facility] Comment on above: Performed By: #### P OCGLUC #### [facility] [address] [address] [address] Geri Pradhan Calcium [Mass/Vol] 9.4 mg/dL Normal 8.5-10.1 [facility] Comment on above: Performed By: #### P OCGLUC #### [facility] [address] [address] [address] Geri Pradhan Chloride [Moles/Vol] 99 mmol/L Normal 98-107 [facility] Comment on above: Performed By: #### P OCGLUC #### [facility] [address] [address] [address] Geri Pradhan CO2 [Moles/Vol] 42.8 mmol/L Critically high 21.0-32.0 [facility] Comment on above: Performed By: #### P OCGLUC #### [facility] [address] [address] [address] Geri Pradhan Creatinine [Mass/Vol] 0.55 mg/dL Normal 0.55-1.02 [facility] Comment on above: Performed By: #### P OCGLUC #### [facility] [address] [address] [address] Geri Pradhan EGFR-AF NIGERIAN >60 Normal >=60 [facility] Comment on above: Performed By: #### P OCGLUC #### [facility] [address] [address] [address] Geri Pradhan EGFR-NON AF NIGERIAN >60 Normal >=60 [facility] Comment on above: Performed By: #### P OCGLUC #### [facility] [address] [address] [address] Geri Pradhan Globulin (S) [Mass/Vol] 4.4 g/dL Normal [facility] Comment on above: Performed By: #### P OCGLUC #### [facility] [address] [address] [address] Geri Pradhan Glucose [Mass/Vol] 136 mg/dL Critically high 74-106 [facility] Comment on above: Performed By: #### P OCGLUC #### [facility] [address] [address] [address] Geri Pradhan Potassium [Moles/Vol] 4.2 mmol/L Normal 3.5-5.1 [facility] Comment on above: Performed By: #### P OCGLUC #### [facility] [address] [address] [address] Geri Pradhan Protein [Mass/Vol] 7.3 g/dL Normal 6.4-8.2 [facility] Comment on above: Performed By: #### P OCGLUC #### [facility] [address] [address] [address] Geri Pradhan Sodium [Moles/Vol] 142 mmol/L Normal 136-145 [facility] Comment on above: Performed By: #### P OCGLUC #### [facility] [address] [address] [address] Geri Pradhan Urea nitrogen [Mass/Vol] 14.0 mg/dL Normal 7.0-18.0 [facility] Comment on above: Performed By: #### P OCGLUC #### [facility] [address] [address] [address] Geri Pradhan Urea nitrogen/Creatinine [Mass ratio] 25.5 mg/mg Normal [facility] Comment on above: Performed By: #### P OCGLUC #### [facility] [address] [place] [address] Dr. Geri Pradhan THEOPHYLLINEon 09-03-2022 THEOPHYLLINE <2.0 Critically low 10.0-20.0 [facility] Comment on above: Performed By: #### P OCGLUC #### [facility] [address] [address] [address] Geri Pradhan MAGNESIUMon 09-02-2022 Magnesium [Mass/Vol] 2.3 mg/dL Normal 1.8-2.4 [facility] Comment on above: Performed By: #### T JUAN JOSE CMP #### [facility] [address] [place] [address] Dr. Geri Pradhan POINT OF CARE GLUCOSEon 08-12 Glucose [Mass/Vol] 118 mg/dL Critically high 74-106 [facility] Comment on above: Performed By: #### R SPLUS #### [facility] [address] [place] [address] Dr. Geri Pradhan Glucose [Mass/Vol] 263 mg/dL Critically high 74-106 [facility] Comment on above: Performed By: #### R SPLUS #### [facility] [address] [place] [address] Dr. Geri Pradhan Glucose [Mass/Vol] 160 mg/dL Critically high -106 [facility] Comment on above: Performed By: #### P OCGLUC #### [facility] [address] [place] [address] Dr. Geri Pradhan PROF CHEM 8 (BAS METB)on Anion gap [Moles/Vol] 5.3 mmol/L Normal [facility] Comment on above: Performed By: #### T JUAN JOSE, CMP #### [facility] [address] [place], [place] [id number] Dr. Geri Pradhan Calcium [Mass/Vol] 9.5 mg/dL Normal 8.5-10.1 [facility] Comment on above: Performed By: #### Gerry INGRAM, CMP #### [facility] [address] [place] [address] Dr. Geri Pradhan Chloride [Moles/Vol] 94 mmol/L Critically low 98-107 [facility] Comment on above: Performed By: #### Gerry INGRAM, CMP #### [facility] [address] [place] [address] Dr. Geri Pradhan CO2 [Moles/Vol] 42.5 mmol/L Critically high 21.0-32.0 [facility] Comment on above: Performed By: #### Gerry INGRAM, CMP #### [facility] [address] [place] [address] Dr. Geri Pradhan Creatinine [Mass/Vol] 0.66 mg/dL Normal 0.55-1.02 [facility] Comment on above: Performed By: #### Gerry INGRAM, CMP #### [facility] [address] [place] [address] Dr. Geri Pradhan EGFR-AF NIGERIAN >60 Normal >=60 [facility] Comment on above: Performed By: #### Gerry INGRAM, CMP #### [facility] [address] [place] [address] Dr. Geri Pradhan EGFR-NON AF NIGERIAN >60 Normal >=60 [facility] Comment on above: Performed By: #### Gerry INGRAM, CMP #### [facility] [address] [place] [address] Dr. Geri Pradhan Glucose [Mass/Vol] 183 mg/dL Critically high 74-106 [facility] Comment on above: Performed By: #### Gerry INGRAM, CMP #### [facility] [address] [address] [address] Geri Pradhan Potassium [Moles/Vol] 3.8 mmol/L Normal 3.5-5.1 [facility] Comment on above: Performed By: #### Gerry INGRAM, CMP #### [facility] [address] [address] [address] Geri Pradhan Sodium [Moles/Vol] 138 mmol/L Normal 136-145 [facility] Comment on above: Performed By: #### Gerry INGRAM, CMP #### [facility] [address] [place] [address] Dr. Geri Pradhan Urea nitrogen [Mass/Vol] 10.0 mg/dL Normal 7.0-18.0 [facility] Comment on above: Performed By: #### Gerry INGRAM, CMP #### [facility] [address] [place] [address] Dr. Geri Pradhan Urea nitrogen/Creatinine [Mass ratio] 15.2 mg/mg Normal [facility] Comment on above: Performed By: #### Gerry INGRAM, CMP #### [facility] [address] [place] [address] Dr. Geri Pradhan THEOPHYLLINEon 09-02-2022 THEOPHYLLINE <2.0 Critically low 10.0-20.0 [facility] Comment on above: Performed By: #### R SPLUS #### [facility] [address] [place] [address] Dr. Geri Pradhan BLOOD CULTURE ID PANELon A. baumannii Not detected Normal NOT DETECTED [facility] Comment on above: Performed By: #### Gerry INGRAM CMP #### [facility] [address] [place] [address] Dr. Geri Pradhan Bacteriodes fragilis Not detected Normal NOT DETECTED [facility] Comment on above: Performed By: #### Gerry INGRAM, CMP #### [facility] [address] [place] [address] Dr. Geri Pradhan BCID CONTROLS PASSED Normal [facility] Comment on above: Performed By: #### Gerry INGRAM, CMP #### [facility] [address] [place] [address] Dr. Geri Pradhan BCIDBTHD BLOOD CULTURE BOTTLE INFORMATION Normal [facility] Comment on above: Performed By: #### Gerry INGRAM CMP #### [facility] [address] [place] [address] Dr. Geri Pradhan BCIDHD1 ANTIMICROBIAL RESISTANCE GENES Normal [facility] Comment on above: Performed By: #### Gerry INGRAM, CMP #### [facility] [address] [address] [address] Geri Pradhan BCIDHD2 SEE BELOW Normal [facility] Comment on above: Result Comment: Note : Antimicrobial resitance can occur via multiple mechanisms. A Not Detected result for the [employer] antomicrobial resistance gene assays does not indicate antimicrobial susceptibility. Subculturing is required for species identification and susceptibility testing of isolates. Performed By: #### Gerry INGRAM, CMP #### [facility] [address] [address] [address] Geri Pradhan BCIDHD3 Positive [facility] Comment on above: Performed By: #### Gerry INGRAM, CMP #### [facility] [address] [place] [address] Dr. Geri Pradhan BCIDHD4 Negative Normal [facility] Comment on above: Performed By: #### Gerry INGRAM, CMP #### [facility] [address] [address] [address] Geri Pradhan BCIDHD5 YEAST Normal [facility] Comment on above: Performed By: #### Gerry INGRAM, CMP #### [facility] [address] [place] [address] Dr. Geri Pradhan Bottle Set: Set 1 Normal [facility] Comment on above: Performed By: #### Gerry INGRAM, CMP #### [facility] [address] [place] [address] Dr. Geri Pradhan Bottle: Aerobic Normal [facility] Comment on above: Performed By: #### Gerry INGRAM, CMP #### [facility] [address] [place] [address] Dr. Geri Pradhan C. neoformans/gattii Not detected Normal NOT DETECTED [facility] Comment on above: Performed By: #### Gerry INGRAM, CMP #### [facility] [address] [place] [address] Dr. Geri Pradhan Milagros albicans Not detected Normal NOT DETECTED [facility] Comment on above: Performed By: #### Gerry INGRAM, CMP #### [facility] [address] [address] [address] Geri Pradhan Milagros auris Not detected Normal NOT DETECTED [facility] Comment on above: Performed By: #### T JUAN JOSE, CMP #### [facility] [address] [address] [address] Geri Pradhan Milagros glabrata Not detected Normal NOT DETECTED [facility] Comment on above: Performed By: #### T JUAN JOSE, CMP #### [facility] [address] [address] [address] Geri Pradhan Milagros Krusei Not detected Normal NOT DETECTED [facility] Comment on above: Performed By: #### T JUAN JOSE, CMP #### [facility] [address] [address] [address] Geri Pradhan Milagros Parapsilosis Not detected Normal NOT DETECTED [facility] Comment on above: Performed By: #### Gerry INGRAM, CMP #### [facility] [address] [address] [address] Geri Pradhan Milagros Tropicalis Not detected Normal NOT DETECTED [facility] Comment on above: Performed By: #### T JUAN JOSE, CMP #### [facility] [address] [address] [address] Geri Pradhan CTX-M Resistant Gene Not Applicable Normal NOT DETECTE D [facility] Comment on above: Performed By: #### T JUAN JOSE, CMP #### [facility] [address] [address] [address] Geir Pradhan E. Cloacae complex Not detected Normal NOT DETECTED [facility] Comment on above: Performed By: #### T JUAN JOSE, CMP #### [facility] [address] [address] [address] Geri Pradhan E. faecalis Not detected Normal NOT DETECTED [facility] Comment on above: Performed By: #### T JUAN JOSE, CMP #### [facility] [address] [address] [address] Geri Pradhan E. faecium Not detected Normal NOT DETECTED [facility] Comment on above: Performed By: #### T JUAN JOSE, CMP #### [facility] [address] [place] [address] Dr. Geri Pradhan Enterobacteriaceae Not detected Normal NOT DETECTED [facility] Comment on above: Performed By: #### T JUAN JOSE, CMP #### [facility] [address] [place] [address] Dr. Geri Pradhan Escherichia coli Not detected Normal NOT DETECTED [facility] Comment on above: Performed By: #### Gerry INGRAM, CMP #### [facility] [address] [place] [address] Dr. Geri Pradhan H. influenzae Not detected Normal NOT DETECTED [facility] Comment on above: Performed By: #### Gerry INGRAM, CMP #### [facility] [address] [place] [address] Dr. Geri Pradhan IMP Resistant Gene Not Applicable Normal NOT DETECTED [facility] Comment on above: Performed By: #### Gerry INGRAM, CMP #### [facility] [address] [place] [address] Dr. Geri Pradhan K. oxytoca Not detected Normal NOT DETECTED [facility] Comment on above: Performed By: #### Gerry INGRAM, CMP #### [facility] [address] [place] [address] Dr. Geri Pradhan K. pneumoniae Not detected Normal NOT DETECTED [facility] Comment on above: Performed By: #### Gerry INGRAM, CMP #### [facility] [address] [place] [address] Dr. Geri Pradhan Klebsiella aerogenes Not detected Normal NOT DETECTED [facility] Comment on above: Performed By: #### Gerry INGRAM, CMP #### [facility] [address] [place] [address] Dr. Geri Pradhan KPC Resistant Gene Not Applicable Normal NOT DETECTED [facility] Comment on above: Performed By: #### Gerry INGRAM, CMP #### [facility] [address] [place] [address] Dr. Geri Pradhan List. monocytogenes Not detected Normal NOT DETECTED [facility] Comment on above: Performed By: #### Gerry INGRAM, CMP #### [facility] [address] [place] [address] Dr. Geri Pradhan Mcr-1 Resistant Gene Not Applicable Normal NOT DETECTE D [facility] Comment on above: Performed By: #### T JUAN JOSE, CMP #### [facility] [address] [place] [address] Dr. Geri Pradhan mecA/C Detected Abnormal NOT DETECTED [facility] Comment on above: Performed By: #### T JUAN JOSE, CMP #### [facility] [address] [place] [address] Dr. Geri Pradhan mecA/C MREJ Not Applicable Normal NOT DETECTED [facility] Comment on above: Performed By: #### T JUAN JOSE, CMP #### [facility] [address] [place] [address] Dr. Geri Pradhan N. meningitidis Not detected Normal NOT DETECTED [facility] Comment on above: Performed By: #### T JUAN JOSE, CMP #### [facility] [address] [place] [address] Dr. Geri Pradhan NDM Resistant Gene Not Applicable Normal NOT DETECTED [facility] Comment on above: Performed By: #### T JUAN JOSE, CMP #### [facility] [address] [place] [address] Dr. Geri Pradhan Oxa-48-like Not Applicable Normal NOT DETECTED [facility] Comment on above: Performed By: #### T JUAN JOSE, CMP #### [facility] [address] [place] [address] Dr. Geri Pradhan Proteus Not detected Normal NOT DETECTED [facility] Comment on above: Performed By: #### T JUAN JOSE, CMP #### [facility] [address] [place] [address] Dr. Geri Pradhan Pseud. aeruginosa Not detected Normal NOT DETECTED [facility] Comment on above: Performed By: #### T JUAN JOSE, CMP #### [facility] [address] [place] [address] Dr. Geri Pradhan S. maltophilia Not detected Normal NOT DETECTED [facility] Comment on above: Performed By: #### T JUAN JOSE, CMP #### [facility] [address] [place] [address] Dr. Geri Pradhan Salmonella Not detected Normal NOT DETECTED [facility] Comment on above: Performed By: #### T JUAN JOSE, CMP #### [facility] [address] [address] [address] Geri Pradhan Seratia marcescens Not detected Normal NOT DETECTED [facility] Comment on above: Performed By: #### T JUAN JOSE, CMP #### [facility] [address] [place] [address] Dr. Geri Pradhan Site: Right AC Normal [facility] Comment on above: Performed By: #### T JUAN JOSE, CMP #### [facility] [address] [address] [address] Geri Pradhan Staph. aureus Not detected Normal NOT DETECTED [facility] Comment on above: Performed By: #### T JUAN JOSE, CMP #### [facility] [address] [place] [address] Dr. Geri Pradhan Staph. epidermidis Detected Critically abnormal NOT DETECTED [facility] Comment on above: Performed By: #### T JUAN JOSE, CMP #### [facility] [address] [place] [address] Dr. Geri Pradhan Staph. lugdunensis Not detected Normal NOT DETECTED [facility] Comment on above: Performed By: #### T JUAN JOSE, CMP #### [facility] [address] [place] [address] Dr. Geri Pradhan Staphylococcus Detected Critically abnormal NOT DETECTED [facility] Comment on above: Performed By: #### T JUAN JOSE, CMP #### [facility] [address] [place] [address] Dr. Geri Pradhan Strep. agalactiae Not detected Normal NOT DETECTED [facility] Comment on above: Performed By: #### T JUAN JOSE, CMP #### [facility] [address] [place] [address] Dr. Geri Pradhan Strep. pneumoniae Not detected Normal NOT DETECTED [facility] Comment on above: Performed By: #### T JUAN JOSE, CMP #### [facility] [address] [place] [address] Dr. Geri Pradhan Strep. pyogenes Not detected Normal NOT DETECTED [facility] Comment on above: Performed By: #### T JUAN JOSE, CMP #### [facility] [address] [place] [address] Dr. Geri Pradhan Streptococcus Not detected Normal NOT DETECTED [facility] Comment on above: Performed By: #### T JUAN JOSE, CMP #### [facility] [address] [address] [address] Geri Pradhan Amrit/B Resist. Gene Not Applicable Normal NOT DETECTED [facility] Comment on above: Performed By: #### T JUAN JOSE, CMP #### [facility] [address] [address] [address] Geri Pradhan VIM Resistant Gene Not Applicable Normal NOT DETECTED [facility] Comment on above: Performed By: #### T JUAN JOSE, CMP #### [facility] [address] [place] [address] Dr. Geri Pradhan BLOOD GASES [facility] 09-01-2022 02 MODE NASAL CANNULA Normal [facility] Comment on above: Performed By: #### R SPLUS #### [facility] [address] [place] [address] Dr. Geri Pradhan ALLENS TEST Positive [facility] Comment on above: Performed By: #### R SPLUS #### [facility] [address] [place] [address] Dr. Geri Pradhan Base excess Calc (Bld) [Moles/Vol] 22.8 mmol/L Critically high -2.0-2.0 [facility] Comment on above: Performed By: #### R SPLUS #### [facility] [address] [place] [address] Dr. Geri Pradhan BIPAP PRESSURE Normal [facility] Comment on above: Performed By: #### R SPLUS #### [facility] [address] [place] [address] Dr. Geri Pradhan CPAP [facility] Comment on above: Performed By: #### R SPLUS #### [facility] [address] [place] [address] Dr. Geri Pradhan FIO2 Normal [facility] Comment on above: Performed By: #### R SPLUS #### [facility] [address] [address] [address] Geri Pradhan HCO3 (Bld) [Moles/Vol] 47.1 mmol/L Critically high 22.0-26 .0 [facility] Comment on above: Performed By: #### R SPLUS #### [facility] [address] [address] [address] Geri Pradhan LPM 2.5 Normal [facility] Comment on above: Performed By: #### R SPLUS #### [facility] [address] [address] [address] Geri Pradhan MINUTE VOLUME Normal [facility] Comment on above: Performed By: #### R SPLUS #### [facility] [address] [place] [address] Dr. Geri Pradhan Oxygen (Bld) [Partial pressure] 95.8 mm[Hg] Normal 80.0-100.0 [facility] Comment on above: Performed By: #### R SPLUS #### [facility] [address] [place] [address] Dr. Geri Pradhan Oxygen saturation in Blood 98.0 % Normal 95.0-100.0 [facility] Comment on above: Performed By: #### R SPLUS #### [facility] [address] [place] [address] Dr. Geri Pradhan PCO2 71.5 mmHg Critically high 35.0-45.0 [facility] Comment on above: Performed By: #### R SPLUS #### [facility] [address] [place] [address] Dr. Geri Pradhan PEEP [facility] Comment on above: Performed By: #### R SPLUS #### [facility] [address] [place] [address] Dr. Geri Pradhan pH (Bld) 7.428 [pH] Normal 7.350-7.450 [facility] Comment on above: Performed By: #### R SPLUS #### [facility] [address] [place] [address] Dr. Geri Pradhan [facility] Comment on above: Performed By: #### R SPLUS #### [facility] [address] [place] [address] Dr. Geri Pradhan [facility] Comment on above: Performed By: #### R SPLUS #### [facility] [address] [place] [address] Dr. Geri Pradhan PUNCTURE SITE [facility] Comment on above: Performed By: #### R SPLUS #### [facility] [address] [place] [address] Dr. Geri Pradhan [facility] Comment on above: Performed By: #### R SPLUS #### [facility] [address] [place] [address] Dr. Geri Pradhan VENT MODE [facility] Comment on above: Performed By: #### R SPLUS #### [facility] [address] [place] [address] Dr. Geri Pradhan [facility] Comment on above: Performed By: #### R SPLUS #### [facility] [address] [place] [address] Dr. Geri Pradhan BNPon 09-01-2022 Natriuretic peptide B (Bld) [Mass/Vol] 143.0 pg/mL Normal <=900.0 [facility] Comment on above: Performed By: #### R SPLUS #### [facility] [address] [place] [address] Dr. Geri Pradhan CARDIAC BRAYAN ADMITon 023 CK [Catalytic activity/Vol] 21 U/L Critically low 26-192 [facility] Comment on above: Performed By: #### R SPLUS #### [facility] [address] [place] [address] Dr. Geri Pradhan CK.MB [Mass/Vol] 0.78 ng/mL Normal <=3.60 [facility] Comment on above: Performed By: #### R SPLUS #### [facility] [address] [place] [address] Dr. Geri Pradhan HSTROP 6.9 pg/mL Normal 4.0-51.3 [facility] Comment on above: Result Comment: CUT- OFF POINTS HAVE BEEN ESTABLISHED BASED ON THE FOURTH UNIVERSAL DEFINITIONS OF MYOCARDIAL INFARCTION. THE UPPER REFERENCE LIMIT (URL) OF TROPONIN, DEFINED THE 99TH PERCENTILE OF cTnI DISTRIBUTION IN A REFERENCE POPULATION, HAS BEEN CONFIRMED THE DECISION THRESHOLD FOR GA DIAGNOSIS. Performed By: #### R SPLUS #### [facility] [address] [place] [address] Dr. Geri Pradhan VIN 20 ng/mL Normal 9-82 [facility] Comment on above: Performed By: #### R SPLUS #### [facility] [address] [place] [address] Dr. Geri Pradhan CBC AUTO DIFFon 09-01-2022 BASO # 0.0 103/ul Normal 0.0-0.1 [facility] Comment on above: Performed By: #### C BC #### [facility] [address] [place] [address] Dr. Geri Pradhan Basophils/100 WBC (Bld) 0.2 % Normal 0.2-2.0 [facility] Comment on above: Performed By: #### C BC #### [facility] [address] [place] [address] Dr. Geri Pradhan EO # 0.1 103/ul Normal 0.0-0.7 [facility] Comment on above: Performed By: #### C BC #### [facility] [address] [place] [address] Dr. Geri Pradhan Eosinophils/100 WBC (Bld) 1.5 % Normal 0.9-7.0 [facility] Comment on above: Performed By: #### C BC #### [facility] [address] [place] [address] Dr. Geri Pradhan Erythrocyte distribution width (RBC) [Ratio] 12.8 % Normal 11.0-15.0 [facility] Comment on above: Performed By: #### C BC #### [facility] [address] [place] [address] Dr. Geri Pradhan Hematocrit (Bld) [Volume fraction] 41.8 % Normal 36.0-48.0 [facility] Comment on above: Performed By: #### C BC #### [facility] [address] [place] [address] Dr. Geri Pradhan Hemoglobin (Bld) [Mass/Vol] 13.1 g/dL Normal 12.0-16.0 [facility] Comment on above: Performed By: #### C BC #### [facility] [address] [place] [address] Dr. Geri Pradhan IG # 0.05 10e3/ul Critically high 0.00-0.03 [facility] Comment on above: Performed By: #### C BC #### [facility] [address] [place] [address] Dr. Geri Pradhan IG % 0.5 % Normal 0.0-0.5 [facility] Comment on above: Performed By: #### C BC #### [facility] [address] [place] [address] Dr. Geri Pradhan LYMPH # 2.4 103/ul Normal 1.2-3.8 [facility] Comment on above: Performed By: #### C BC #### [facility] [address] [place] [address] Dr. Geri Pradhan Lymphocytes/100 WBC (Bld) 24.9 % Normal 20.5-60.0 [facility] Comment on above: Performed By: #### C BC #### [facility] [address] [place] [address] Dr. Geri Pradhan MANUAL DIFF REQ NO Normal [facility] Comment on above: Performed By: #### C BC #### [facility] [address] [place] [address] Dr. Geri Pradhan MCH (RBC) [Entitic mass] 27.2 pg Normal 26.7-34.0 [facility] Comment on above: Performed By: #### C BC #### [facility] [address] [place] [address] Dr. Geri Pradhan MCHC (RBC) [Mass/Vol] 31.3 g/dL Normal 29.9-35.2 [facility] Comment on above: Performed By: #### C BC #### [facility] [address] [address] [address] Geri Pradhan MCV (RBC) [Entitic vol] 86.7 fL Normal 81.0-99.0 [facility] Comment on above: Performed By: #### C BC #### [facility] [address] [address] [address] Geri Pradhan MONO # 0.9 103/ul Critically high 0.3-0.8 [facility] Comment on above: Performed By: #### C BC #### [facility] [address] [address] [address] Geri Pradhan Monocytes/100 WBC (Bld) 8.9 % Normal 1.7-12.0 [facility] Comment on above: Performed By: #### C BC #### [facility] [address] [address] [address] Geri Pradhan NEUT # 6.1 103/ul Normal 1.4-6.5 [facility] Comment on above: Performed By: #### C BC #### [facility] [address] [address] [address] Grei Pradhan Neutrophils/100 WBC (Bld) 64.0 % Normal 43.0-75.0 [facility] Comment on above: Performed By: #### C BC #### [facility] [address] [address] [address] Geri Pradhan Platelet mean volume (Bld) [Entitic vol] 9.2 fL Critically low 9.5-13.5 [facility] Comment on above: Performed By: #### C BC #### [facility] [address] [address] [address] Geri Pradhan PLT 349 103/ul Normal 150-450 [facility] Comment on above: Performed By: #### C BC #### [facility] [address] [address] [address] Geri Pradhan RBC 4.82 106/ul Normal 4.20-5.40 [facility] Comment on above: Performed By: #### C BC #### [facility] [address] [place] [address] Dr. Geri Pradhan WBC 9.5 103/ul Normal 4.0-11.0 [facility] Comment on above: Performed By: #### C BC #### [facility] [address] [place] [address] Dr. Geri Pradhan CULTURE BLOODon 09-01-2022 Microscopic examination of blood, culture Culture Observations: NO GROWTH AT 5 DAYS. Normal [facility] Comment on above: Performed By: #### P OCGLUC #### [facility] [address] [place] [address] Dr. Geri Pradhan CULTURE URINEon 09-01-2022 CULTURE URINE Culture Observations : EDUARDO TO FOLLOW. Isolate 1 Pseudomonas aeruginosa 10,000 cfu/mL of Normal [facility] Comment on above: Performed By: #### P OCGLUC #### [facility] [address] [place] [address] Dr. Geri Pradhan ER URINE PROFILEon 3 Bilirubin Ql (U) Negative Normal NEGATIVE [facility] Comment on above: Performed By: #### P OCGLUC #### [facility] [address] [place] [address] Dr. Geri Pradhan Clarity (U) CLEAR Normal CLEAR [facility] Comment on above: Performed By: #### P OCGLUC #### [facility] [address] [place] [address] Dr. Geri Pradhan Color (U) LT. YELLOW Normal YELLOW [facility] Comment on above: Performed By: #### P OCGLUC #### [facility] [address] [place] [address] Dr. Geri Pradhan ERUAHD A micrscopic examination will be performed if indicated. Normal [facility] Comment on above: Performed By: #### P OCGLUC #### [facility] [address] [place] [address] Dr. Geri Pradhan Glucose Ql (U) Negative Normal NEGATIVE [facility] Comment on above: Performed By: #### P OCGLUC #### [facility] [address] [place] [address] Dr. Geri Pradhan Hemoglobin Ql (U) TRACE-INTACT Abnormal NEGATIVE [facility] Comment on above: Performed By: #### P OCGLUC #### [facility] [address] [place] [address] Dr. Geri Pradhan Ketones Ql (U) Negative Normal NEGATIVE [facility] Comment on above: Performed By: #### P OCGLUC #### [facility] [address] [place] [address] Dr. Geri Pradhan LEUKOCYTES MODERATE Abnormal NEGATIVE [facility] Comment on above: Performed By: #### P OCGLUC #### [facility] [address] [place] [address] Dr. Geri Pradhan Nitrite Ql (U) Negative Normal NEGATIVE [facility] Comment on above: Performed By: #### P OCGLUC #### [facility] [address] [place] [address] Dr. Geri Pradhan pH (U) 6.5 [pH] Normal 5-9 [facility] Comment on above: Performed By: #### P OCGLUC #### [facility] [address] [place] [address] Dr. Geri Pradhan SPEC GRAVITY 1.010 Normal 1.005-<=1.02 5 [facility] Comment on above: Performed By: #### P OCGLUC #### [facility] [address] [place] [address] Dr. Geri Pradhan UA PROTEIN Negative Normal NEGATIVE/ TRACE [facility] Comment on above: Performed By: #### P OCGLUC #### [facility] [address] [place] [address] Dr. Geri Pradhan UR MICRO IND INDICATED Normal [facility] Comment on above: Performed By: #### P OCGLUC #### [facility] [address] [place] [address] Dr. Geri Pradhan Urobilinogen Qn (U) 0.2 {Lelia'U}/dL Normal 0.2 - 1. 0 [facility] Comment on above: Performed By: #### P OCGLUC #### [facility] [address] [place] [address] Dr. Geri Pradhan LACTATE/LACTIC ACIDon 2022 Lactate [Moles/Vol] 0.7 mmol/L Normal 0.4-2.0 [facility] Comment on above: Performed By: #### T JUAN JOSE, CMP #### [facility] [address] [address] [address] Geri Pradhan PROF 14(COMP METB)on 023 Albumin [Mass/Vol] 3.3 g/dL Critically low 3.4-5.0 [facility] Comment on above: Performed By: #### P OCGLUC #### [facility] [address] [address] [address] Geri Pradhan Albumin/Globulin [Mass ratio] 0.7 {ratio} Normal [facility] Comment on above: Performed By: #### P OCGLUC #### [facility] [address] [address] [address] Geri Pradhan ALP [Catalytic activity/Vol] 81 U/L Normal 46-116 [facility] Comment on above: Performed By: #### P OCGLUC #### [facility] [address] [address] [address] Geri Pradhan ALT [Catalytic activity/Vol] 19 U/L Normal 14-59 [facility] Comment on above: Performed By: #### P OCGLUC #### [facility] [address] [address] [address] Geri Pradhan Anion gap [Moles/Vol] 3.1 mmol/L Normal [facility] Comment on above: Performed By: #### P OCGLUC #### [facility] [address] [address] [address] Geri Pradhan AST [Catalytic activity/Vol] 16 U/L Normal 15-37 [facility] Comment on above: Performed By: #### P OCGLUC #### [facility] [address] [address] [address] Geri Pradhan Bilirubin [Mass/Vol] 0.2 mg/dL Normal 0.2-1.0 [facility] Comment on above: Performed By: #### P OCGLUC #### [facility] [address] [address] [address] Geri Pradhan Calcium [Mass/Vol] 9.8 mg/dL Normal 8.5-10.1 [facility] Comment on above: Performed By: #### P OCGLUC #### [facility] [address] [address] [address] Geri Pradhan Chloride [Moles/Vol] 93 mmol/L Critically low 98-107 [facility] Comment on above: Performed By: #### P OCGLUC #### [facility] [address] [address] [address] Geri Pradhan CO2 [Moles/Vol] 45.3 mmol/L Critically high 21.0-32.0 [facility] Comment on above: Performed By: #### P OCGLUC #### [facility] [address] [address] [address] Geri Pradhan Creatinine [Mass/Vol] 0.51 mg/dL Critically low 0.55-1.02 [facility] Comment on above: Performed By: #### P OCGLUC #### [facility] [address] [address] [address] Geri Pradhan EGFR-AF NIGERIAN >60 Normal >=60 [facility] Comment on above: Performed By: #### P OCGLUC #### [facility] [address] [address] [address] Geri Pradhan EGFR-NON AF NIGERIAN >60 Normal >=60 [facility] Comment on above: Performed By: #### P OCGLUC #### [facility] [address] [address] [address] Geri Pradhan Globulin (S) [Mass/Vol] 4.8 g/dL Normal [facility] Comment on above: Performed By: #### P OCGLUC #### [facility] [address] [address] [address] Geri Pradhan Glucose [Mass/Vol] 98 mg/dL Normal 74-106 [facility] Comment on above: Performed By: #### P OCGLUC #### [facility] [address] [address] [address] Geri Pradhan Potassium [Moles/Vol] 3.4 mmol/L Critically low 3.5-5.1 [facility] Comment on above: Performed By: #### P OCGLUC #### [facility] [address] [address] [address] Geri Pradhan Protein [Mass/Vol] 8.1 g/dL Normal 6.4-8.2 [facility] Comment on above: Performed By: #### P OCGLUC #### [facility] [address] [address] [address] Geri Pradhan Sodium [Moles/Vol] 138 mmol/L Normal 136-145 [facility] Comment on above: Performed By: #### P OCGLUC #### [facility] [address] [place] [address] Dr. Geri Pradhan Urea nitrogen [Mass/Vol] 11.0 mg/dL Normal 7.0-18.0 [facility] Comment on above: Performed By: #### P OCGLUC #### [facility] [address] [place] [address] Dr. Geri Pradhan Urea nitrogen/Creatinine [Mass ratio] 21.6 mg/mg Normal [facility] Comment on above: Performed By: #### P OCGLUC #### [facility] [address] [place] [address] Dr. Geri Pradhan PROTIMEon 09-01-2022 INR Coag (PPP) [Relative time] 0.96 {INR} Normal [facility] Comment on above: Performed By: #### T JUAN JOSE CMP #### [facility] [address] [place] [address] Dr. Geri Pradhan INR GUIDELINES SEE BELOW Normal [facility] Comment on above: Result Comment: KAROL RED INR: 2.0 - 3.0 CONDITIONS NOT LISTED BELOW 2.5 - 3.5 FOR PROSTHETIC HEART VALVE REPLACEMENT 2.5 - 3.5 RECURRENT THROMBOSIS Performed By: #### T JUAN JOSE CMP #### [facility] [address] [place] [address] Dr. Geri Pradhan PT Coag (PPP) [Time] 10.2 s Normal 9.0-11.6 [facility] Comment on above: Performed By: #### T JUAN JOSE, CMP #### [facility] [address] [place] [address] Dr. Geri Pradhan PTTon 09-01-2022 aPTT Coag (Bld) [Time] 25.5 s Normal 22.3-36.2 [facility] Comment on above: Performed By: #### Gerry INGRAM, CMP #### [facility] [address] [place] [address] Dr. Geri Pradhan URINE MICROSCOPIC ONLYon BACTERIA NONE SEEN Normal NONE SEEN [facility] Comment on above: Performed By: #### P OCGLUC #### [facility] [address] [place] [address] Dr. Geri Pradhan Bacteria identified Cx Nom (U) INDICATED Normal [facility] Comment on above: Performed By: #### P OCGLUC #### [facility] [address] [place] [address] Dr. Geri Pradhan CAST NONE SEEN Normal NONE SEEN [facility] Comment on above: Performed By: #### P OCGLUC #### [facility] [address] [place] [address] Dr. Geri Pradhan Crystals LM Nom (Urine sed) NONE SEEN Normal NONE SEEN [facility] Comment on above: Performed By: #### P OCGLUC #### [facility] [address] [place] [address] Dr. Geri Pradhan Epithelial cells LM Ql (Urine sed) FEW Abnormal NONE SEEN /RARE [facility] Comment on above: Performed By: #### P OCGLUC #### [facility] [address] [place] [address] Dr. Geri Pradhan MUCOUS NONE SEEN Normal NONE SEEN [facility] Comment on above: Performed By: #### P OCGLUC #### [facility] [address] [place] [address] Dr. Geri Pradhan RBC 0-2 Normal 0-2 [facility] Comment on above: Performed By: #### P OCGLUC #### [facility] [address] [place] [address] Dr. Geri Pradhan WBC 10-20 Abnormal NONE SEEN [facility] Comment on above: Performed By: #### P OCGLUC #### [facility] [address] [address] [address] Geri Pradhan XR CHEST 1 Von [...] by: EAMON ANDREWS Date: 2022-09-01 20:18 Normal [facility] CNOVon 06-02-2022 CNOV Office Visit (RADTSA ) CINTHIA STANLEY ([id number]) 1960 F Date Time Provider Department 06/02/22 [...] COPD, who is diagnosed with Stage IA3, [id number], non-small cell lung cancer arising from a [...] Aspergillus. These results were discussed with her bone crusher Dr. Cross and the patient was referred [...] oxygen via nasal cannula at 2 L [id number]. She notes that her cough is improved [...] COPD, who is diagnosed with Stage IA3, [id number], non-small cell lung cancer arising from a [...] Stanley i (more content not included)... Normal [facility] ASPERGILLUS GALACTOMANNAN AN TIGEN DETECTon 05-28-2022 Aspergillus Ag, BAL/Serum 0.07 Index Normal 0.00-0.49 [facility] Comment on above: Result Comment: Perf ormed at: BN Performed By: #### T JUAN JOSE CMP #### [facility] [address] [address] [address] Geri Pradhan Test Information . Normal [facility] Comment on above: Result Comment: Perf ormed at: TG Performed By: #### T JUAN JOSE, CMP #### [facility] [address] [address] [address] Geri Pradhan ASPERGILLUS AB, QUANTITATIVE DIDon 05-27-2022 Aspergillus flavus Negative Normal Neg:<1:1 [facility] Comment on above: Performed By: #### T JUAN JOSE, CMP #### [facility] [address] [address] [address] Geri Pradhan Aspergillus fumigatus Negative Normal Neg:<1:1 [facility] Comment on above: Performed By: #### T JUAN JOSE, CMP #### [facility] [address] [address] [address] Geri Pradhan Aspergillus niger Negative Normal Neg:<1:1 [facility] Comment on above: Performed By: #### T JUAN JOSE, CMP #### [facility] [address] [address] [address] Geri Pradhan CULTURE SPUTUMon 05-23-2022 CULTURE SPUTUM Culture Observations : NORMAL RESPIRATORY NAVA. Normal [facility] Comment on above: Performed By: #### P OCGLUC #### [facility] [address] [address] [address] Geri Pradhan SPUTUM GRAM STAINon 05-23-19 23 COMMENTS Normal [facility] Comment on above: Performed By: #### Gerry INGRAM, CMP #### [facility] [address] [address] [address] Geri Pradhan DIPHTHEROIDS [facility] Comment on above: Performed By: #### Gerry INGRAM, CMP #### [facility] [address] [address] [address] Geri Pradhan EPITHELIALS <25 Normal [facility] Comment on above: Performed By: #### Gerry INGRAM, CMP #### [facility] [address] [address] [address] Geri Pradhan FUNGAL ELEMENTS Normal [facility] Comment on above: Performed By: #### Gerry INGRAM, CMP #### [facility] [address] [address] [address] Geri YS NEG BACILLI Normal [facility] Comment on above: Performed By: #### T JUAN JOSE, CMP #### [facility] [address] [address] [address] Geri SY NEG DIPPLOCOCCI Normal [facility] Comment on above: Performed By: #### T JUAN JOSE, CMP #### [facility] [address] [address] [address] Geir Pradhan GRAM POS BACILLI Normal [facility] Comment on above: Performed By: #### T JUAN JOSE, CMP #### [facility] [address] [address] [address] Geri Pradhan GRAM POSITIVE COCCI MODERATE Normal [facility] Comment on above: Performed By: #### T JUAN JOSE, CMP #### [facility] [address] [address] [address] Geri Pradhan WBC (Bld) [#/Vol] 10*3/uL Normal [facility] Comment on above: Performed By: #### T JUAN JOSE, CMP #### [facility] [address] [place] [address] Dr. Geri Pradhan BRONCHOSCOPYon 05-09-2022 [facility] Covid-19 PCR (CVDTBH)on 04-14 SARS-CoV-2 (COVID-19) RNA KRUNAL+probe Ql (Unsp spec) Not detected Normal NOT DETECTED [facility] Comment on above: Result Comment: This test is not yet approved or cleared by the [place] FDA. When there are no FDA-approved or cleared tests available, and other criteria are met, FDA can make tests available under an emergency access mechanism called an Emergency Use Authorization (EUA). The EUA for this test is supported by the [place] of Health and Human Service's (HHS's) declaration [...] SARS-CoV-2. Performed By: #### R SPLUS #### [facility] [address] [place] [address] Dr. Geri Pradhan Covid-19 PCR ([facility]on 03-14 SARS-CoV-2 (COVID-19) RNA KRUNAL+probe Ql (Unsp spec) Not detected Normal NOT DETECTED [facility] Comment on above: Result Comment: This test is not yet approved or cleared by the [place] FDA. When there are no FDA-approved or cleared tests available, and other criteria are met, FDA can make tests available under an emergency access mechanism called an Emergency Use Authorization (EUA). The EUA for this test is supported by the [place] of Health and Human Service's (HHS's) declaration [...] By: #### T JUAN JOSE, CMP #### [facility] [address] [address] [address] Geri Pradhan INFLUENZA A [facility] Normal [facility] Comment on above: Result Comment: Nega tive for Flu A protein angiten. Infection due to Flu A cannot be ruled out. Flu A angiten in the sample may be below the detection limit of the test. Performed By: #### T JUAN JOSE, CMP #### [facility] [address], [place] [address] Dr. Geri Pradhan INFLUBNEG SEE BELOW Normal [facility] Comment on above: Result Comment: Nega tive for Flu B protein antigen. Infection due to Flu B cannot be ruled out. Flu B antigen in the sample may be below the detection limit of the test. Performed By: #### T JUAN JOSE, CMP #### [facility] [address] [address] [address] Geri Pradhan INFLUENZA A AG Negative Normal NEGATIVE SEE COMMENT [facility] Comment on above: Performed By: #### T JUAN JOSE, CMP #### [facility] [address], [place] [address] Dr. Geri Pradhan INFLUENZA B AG Negative Normal NEGATIVE SEE COMMENT [facility] Comment on above: Performed By: #### T JUAN JOSE, CMP #### [facility] [address], [place] [address] Dr. Geri Pradhan INTERNAL CONTROLS Within Normal Limits Normal Wi thin Normal Limits [facility] Comment on above: Performed By: #### T JUAN JOSE, CMP #### [facility] [address], [place] [address] CHEST W CONon [...] JULES RAMIREZ Date: 2022-02-17 08:02 Normal [facility] CREATININEon 02-15-2022 Creatinine [Mass/Vol] 0.52 mg/dL Critically low 0.55-1.02 [facility] Comment on above: Performed By: #### R SPLUS #### [facility] [address] [place] [address] Dr. Geri Pradhan EGFR-AF NIGERIAN >60 Normal >=60 [facility] Comment on above: Performed By: #### R SPLUS #### [facility] [address] [address] [address] Geri Pradhan EGFR-NON AF NIGERIAN >60 Normal >=60 [facility] Comment on above: Performed By: #### R SPLUS #### [facility] [address] [place] [address] Dr. Geri Pradhan CULTURE SPUTUMon 02-11-2022 CULTURE SPUTUM Isolate 1 Milagros albicans Light growth of Normal [facility] Comment on above: Performed By: #### S PUTCX #### [facility] [address] [place] [address] Dr. Geri Pradhan SPUTUM GRAM STAINon 02-12-20 22 COMMENTS Normal [facility] Comment on above: Performed By: #### R SPLUS #### [facility] [address] [place] [address] Dr. Geri Pradhan DIPHTHEROIDS Normal [facility] Comment on above: Performed By: #### R SPLUS #### [facility] [address] [place] [address] Dr. Geri Pradhan EPITHELIALS <25 Normal [facility] Comment on above: Performed By: #### R SPLUS #### [facility] [address] [address] [address] Geri Pradhan FUNGAL ELEMENTS Normal [facility] Comment on above: Performed By: #### R SPLUS #### [facility] [address] [place] [address] Dr. Geri Pradhan GRAM NEG BACILLI Normal [facility] Comment on above: Performed By: #### R SPLUS #### [facility] [address] [address] [address] Geri Pradhan GRAM NEG DIPPLOCOCCI Normal [facility] Comment on above: Performed By: #### R SPLUS #### [facility] [address] [place] [address] Dr. Geri Pradhan GRAM POS BACILLI Normal [facility] Comment on above: Performed By: #### R SPLUS #### [facility] [address] [place] [address] Dr. Geri Pradhan GRAM POSITIVE COCCI MODERATE Normal [facility] Comment on above: Performed By: #### R SPLUS #### [facility] [address] [place] [address] Dr. Geri Pradhan WBC (Bld) [#/Vol] 10*3/uL Normal [facility] Comment on above: Performed By: #### R SPLUS #### [facility] [address] [place] [address] Dr. Geri Pradhan Covid-19 PCR (CVDTBH)on 11-13 SARS-CoV-2 (COVID-19) RNA KRUNAL+probe Ql (Unsp spec) Detected Critically abnormal NOT DETECTED [facility] Comment on above: Result Comment: This test is not yet approved or cleared by the [place] FDA. When there are no FDA-approved or cleared tests available, and other criteria are met, FDA can make tests available under an emergency access mechanism called an Emergency Use Authorization (EUA). The EUA for this test is supported by the [place] of Health and Human Service's (HHS's) declaration [...] used). Performed By: #### C VDTBH #### [facility] [address] [place] [address] Dr. Geri Pradhan General Surgery Office/Clini c Noteon 03-25-2021 General Surgery Office/Clinic Note Chief Complaint in-office excisional biopsy HPI Staff Presents for in-office excisional biopsy right muslim and right lower extremity. No change since last evaluation. History of Present Illness here for excision of right muslim and RLE lesions; no change since recent [...] and draped; anesthetized with 1% lidocaine; right muslim lesion excised in an elliptical fashion down [...] Cardiac arrest: Mother, Father and Sister. Normal [facility] Comment on above: Result Comment: Elec tronically Signed By: JIM DAVENPORT, Jose Domínguez\Date and Time Signed: 03/25/21 17:02 EST Ambulatory Clinical Summaryo n 02-12-2021 Ambulatory Clinical Summary {[id number]}CD:[id number] Normal [facility] General Surgery Office/Clini c Noteon 02-12-2021 General Surgery Office/Clinic Note Chief Complaint follow up in-office excisional biopsy HPI Staff 11 day post operative follow up post in-office excisional biopsy right muslim and right lower extremity. Sutures intact. Denies bleeding or drainage from incision site. History of Present Illness 11 days s/p excisional biopsy changing lesions right muslim and right lower extremity; doing well, no drainage; muslim lesion basal cell carcinoma, margins not commented [...] Cardiac arrest: Mother, Father and Sister. Normal [facility] Comment on above: Result Comment: Elec tronically Signed By: JIM DAVENPORT, Jose Marx\.giana\Date and Time Signed: 02/12/21 13:16 EDT Pathology Noteon 02-06-2021 Pathology Note [id number] 0CD:[address] [facility] Ambulatory Clinical Summaryo n 01-11-2021 Ambulatory Clinical Summary {[id number] Normal [facility] Ambulatory Clinical Summary {[id number]}CD:[id number] Normal [facility] Physician Referralon 021 Physician Referral [id number] 0CD:[address] [facility] [id number] 03-02-2018 Protein mass conc NAME : LIZETHELAINE D : [id number] : 1960 Gender : FemaleRace : CaucasianORD : [id number] Procedure Date : Mar 02 2018 12:58:22Edit Date : Mar 02 2018 14:15:37 Diagnosis:NORMAL SINUS RHYTHMRIGHT ATRIAL ENLARGEMENTMINIMAL VOLTAGE CRITERIA FOR LVH, MAY BE NORMAL VARIANTBORDERLINE ECGNO PREVIOUS ECGS AVAILABLEConfirmed by CORNELIA ROGERS M.D. ([id number]) on 03/02/2018 2:15:27 PM Ventricular Rate : 86 BPMAtrial Rate : 86 BPMP-R Interval : 178 msQRS Duration : 72 msQ-T Interval : 374 msQTC Calculation(Bezet) : 447 msP [place] : 88 degreesR [place] : 78 degreesT [place] : 79 degrees Test Reason : Location : 49 : [facility] Overread By : KEN Maier,MIHIRJAYEdited By : KEN Maier,JEAN-CLAUDEYReferred By : DUGLAS FERNANDEZAcquired by : CELESTE GILLESPIE [facility] Vital Signs Date Time Vital Sign Value Performing Clinician Facility 05-17-2023 12:14-0500 Heart rate 120 /min [facility] 05-17-2023 12:14-0500 Respiratory rate 22 /min [facility] 05-17-2023 11:04-0500 Diastolic blood pressure 76 mm[Hg] [facility] 05-17-2023 11:04-0500 Inhaled oxygen flow rate 2 L/min [facility] 05-17-2023 11:04-0500 SaO2% (BldA) [Mass fraction] 97 % [facility] 05-17-2023 11:04-0500 Systolic blood pressure 117 mm[Hg] [facility] 05-17-2023 07:32-0500 Body temperature 97.4 [degF] [facility] 05-17-2023 03:19-0500 Body weight 39.2 kg [facility] 05-14-2023 16:31-0500 Body height 162.56 cm [facility] 05-14-2023 01:40-0500 Diastolic blood pressure 57 mm[Hg] [facility] 05-14-2023 01:40-0500 Heart rate 119 /min [facility] 05-14-2023 01:40-0500 Inhaled oxygen flow rate 2 L/min [facility] 05-14-2023 01:40-0500 Respiratory rate 22 /min [facility] 05-14-2023 01:40-0500 SaO2% (BldA) [Mass fraction] 91 % [facility] 05-14-2023 01:40-0500 Systolic blood pressure 119 mm[Hg] [facility] 05-13-2023 16:49-0500 Body height 162.56 cm [facility] 05-13-2023 16:49-0500 Body temperature 97.9 [degF] [facility] 05-13-2023 16:49-0500 Body weight 40.36 kg [facility] 11-27-2022 10:34-0400 Body temperature 96.01 [degF] Abdi Iqbal MD Work Phone: [facility] 11-27-2022 10:34-0400 Body weight 45.18 kg Abdi Iqbal MD Work Phone: [facility] 11-27-2022 10:34-0400 Diastolic blood pressure 82 mm[Hg] Abdi Iqbal MD Work Phone: [facility] 11-27-2022 10:34-0400 Heart rate 110 /min Abdi Iqbal MD Work Phone: [facility] 11-27-2022 10:34-0400 Respiratory rate 20 /min Abdi Iqbal MD Work Phone: [facility] 11-27-2022 10:34-0400 SaO2% (BldA) [Mass fraction] 89 % Abdi Iqbal MD Work Phone: [facility] 11-27-2022 10:34-0400 Systolic blood pressure 132 mm[Hg] Abdi Iqbal MD Work Phone: [facility] 06-26-2022 15:00-0400 Body height 162.56 cm Jose Conde Other [employer] Other 06-26-2022 15:00-0400 Body mass index (BMI) [Ratio] 18.02 kg/m2 Jose Conde Other [employer] Other 06-26-2022 15:00-0400 Body temperature 97.2 [degF] Jose Elton Other [employer] Other 06-26-2022 15:00-0400 Body weight 47.63 kg Jose Conde Other [employer] Other 06-26-2022 15:00-0400 Diastolic blood pressure 80 mm[Hg] Jose Conde Other [employer] Other 06-26-2022 15:00-0400 Systolic blood pressure 128 mm[Hg] Jose Elton Other [employer] Other 06-02-2022 14:09-0500 Body temperature 97.7 [degF] Abdi Iqbal MD Work Phone: [facility] 06-02-2022 14:09-0500 Body weight 49.35 kg Abdi Iqbal MD Work Phone: [facility] 06-02-2022 14:09-0500 Diastolic blood pressure 78 mm[Hg] Abdi Iqbal MD Work Phone: [facility] 06-02-2022 14:09-0500 Heart rate 116 /min Abdi Iqbal MD Work Phone: [facility] 06-02-2022 14:09-0500 Respiratory rate 18 /min Abdi Iqbal MD Work Phone: [facility] 06-02-2022 14:09-0500 SaO2% (BldA) [Mass fraction] 89 % Abdi Iqbal MD Work Phone: [facility] 06-02-2022 14:09-0500 Systolic blood pressure 125 mm[Hg] Abdi Iqbal MD Work Phone: [facility] 05-22-2022 15:15-0500 Body height 162.56 cm Jose Conde Other [employer] Other 05-22-2022 15:15-0500 Body mass index (BMI) [Ratio] 18.02 kg/m2 Jose Conde Other [employer] Other 05-22-2022 15:15-0500 Body temperature 98.2 [degF] Jose Conde Other [employer] Other 05-22-2022 15:15-0500 Body weight 47.63 kg Jose Conde Other [employer] Other 05-22-2022 15:15-0500 Diastolic blood pressure 78 mm[Hg] Jose Conde Other [employer] Other 05-22-2022 15:15-0500 Systolic blood pressure 130 mm[Hg] Jose Conde Other [employer] Other 05-09-2022 10:30-0500 Diastolic blood pressure 80 mm[Hg] Yasmin Waggoner MD Work Phone: [facility] 05-09-2022 10:30-0500 Heart rate 99 /min Yasmin Waggoner MD Work Phone: [facility] 05-09-2022 10:30-0500 Respiratory rate 16 /min Yasmin Waggoner MD Work Phone: [facility] 05-09-2022 10:30-0500 SaO2% (BldA) [Mass fraction] 97 % Yasmin Waggoner MD Work Phone: [facility] 05-09-2022 10:30-0500 Systolic blood pressure 134 mm[Hg] Yasmin Waggoner MD Work Phone: [facility] 05-09-2022 10:02-0500 Body temperature 98.2 [degF] Yasmin Waggoner MD Work Phone: [facility] 05-09-2022 07:03-0500 Body height 162.6 cm Yasmin Waggoner MD Work Phone: [facility] 05-09-2022 07:03-0500 Body weight 47.63 kg Yasmin Waggoner MD Work Phone: [facility] 03-14-2022 11:22-0500 Body temperature 97.81 [degF] Abdi Iqbal MD Work Phone: [facility] 03-14-2022 11:22-0500 Body weight 49.9 kg Abdi Iqbal MD Work Phone: [facility] 03-14-2022 11:22-0500 Heart rate 101 /min Abdi Iqbal MD Work Phone: [facility] 03-14-2022 11:22-0500 Respiratory rate 16 /min Abdi Iqbal MD Work Phone: [facility] 03-14-2022 11:22-0500 SaO2% (BldA) [Mass fraction] 96 % Abdi Iqbal MD Work Phone: [facility] 06-06-2021 10:01-0500 Body temperature 97.7 [degF] Abdi Iqbal MD Work Phone: [facility] 06-06-2021 10:01-0500 Body weight 51.71 kg Abdi Iqbal MD Work Phone: [facility] 06-06-2021 10:01-0500 Diastolic blood pressure 67 mm[Hg] Abdi Iqbal MD Work Phone: [facility] 06-06-2021 10:01-0500 Heart rate 97 /min Abdi Iqbal MD Work Phone: [facility] 06-06-2021 10:01-0500 Respiratory rate 20 /min Abdi Iqbal MD Work Phone: [facility] 06-06-2021 10:01-0500 SaO2% (BldA) [Mass fraction] 93 % Abdi Iqbal MD Work Phone: [facility] 06-06-2021 10:01-0500 Systolic blood pressure 120 mm[Hg] Abdi Iqbal MD Work Phone: [facility] Encounters Encounter Date Encounter Type Care Provider Facility Start: 07-14-2023 End: 07-14-2023 ambulatory ANA DRIVER Not Available Start: 05-25-2023 End: 05-25-2023 ambulatory ABDI IQBAL Facility:[facility] Start: 05-20-2023 Telephone encounter Abdi Iqbal MD Work Phone: Radiation Oncology Comment on above: Patient Update; Futu re Appointment Start: 05-14-2023 End: 05-17-2023 Evaluation and management of inpatient Ally Warner Facility:[facility] Start: 05-14-2023 Non-patient / Non-visit [facility] Work Phone: Start: 04-09-2023 End: 04-09-2023 ambulatory ANA DRIVER Not Available Start: 11-27-2022 End: 11-28-2022 ambulatory ABDI IQBAL Facility:[facility] Start: 11-27-2022 End: 11-28-2022 Patient encounter procedure Abdi Iqbal MD Work Phone: Radiation Oncology Comment on above: Neoplasm of lung (Pr imary Dx) Start: 11-18-2022 Telephone encounter Ced Rojas Hematology/Oncology Comment on above: Appointment Start: 09-02-2022 End: 09-05-2022 Evaluation and management of inpatient DR ADITHYA BASS . Facility: Start: 06-26-2022 End: 06-26-2022 ambulatory Jose Conde Other [employer] Other Start: 06-26-2022 Office outpatient vi sit 25 minutes Jose LORENZANA Infectious Disease Start: 06-10-2022 End: 06-10-2022 ambulatory Jose Conde Other [employer] Other Start: 06-10-2022 Telephone encounter Jose Conde FP G Infectious Disease Start: 06-02-2022 End: 06-02-2022 ambulatory ABDI IQBAL Facility:[facility] Start: 06-02-2022 End: 06-02-2022 Patient encounter procedure Abdi Iqbal MD Work Phone: Radiation Oncology Comment on above: Non-small cell cance r of left lung (HCC) (Primary Dx) Start: 05-23-2022 End: 05-23-[address] JOSE CONDE Facility:[facility] Start: 05-22-2022 End: 05-23-[address] JOSE CONDE [employer] Other Start: 05-22-2022 Office outpatient ne w 45 minutes Jose LORENZANA Infectious Disease Start: 05-14-2022 Telephone encounter Abdi Iqbal MD Work Phone: Radiation Oncology Comment on above: Appointment Start: 05-09-2022 End: 05-09-2022 Subsequent hospital visit by physician Yasmin Waggoner MD Work Phone: Admitting Comment on above: Bronchiolar disease [J98.09] Start: 05-08-2022 Encounter for preprocedural laboratory examination DR DOCTOR DAS [facility] Start: 05-06-2022 End: 05-06-[address] [...] with patient Vitor Farias MD Work Phone: [facility] Start: 04-24-2022 Telephone encounter Florina Hassan CT Pulmonary Medicine Comment on above: Appointment (PreOp B ronneil) Start: 04-23-2022 Orders Only Alicja Reece [employer] Work Phone: Admitting Comment on above: Preoperative examina tion (Primary Dx) Appointment Start: 04-23-2022 Preprocedural examin ation done Alicja Reece [employer] Work Phone: Admitting Start: 04-22-2022 ambulatory Vitor [...] of lung Start: 03-02-2018 Patient encounter procedure formerly [facility] Start: 03-24-2017 Ambulatory JAYE HOUGH Facil [id number] Start: 03-24-2017 Ambulatory Adithya Bass Fac ility:[id number] Procedures Date Procedure Procedure Detail Performing Clinician Start: 05-09-2022 [facility] incl fluor g dnce dx w/cell washg spx Abdi Iqbal MD Work Phone: Start: 06-06-2021 Adult depression screening assessment Abdi Iqbal MD Work Phone: Plan of Treatment Date Care Activity Detail Author Start: 04-24-2025 DIABETES SCREEN DIABETES SCREEN [facility] Start: 04-24-2025 Diabetes Screening Diabetes Screenin g [facility] Start: 05-17-2023 [facility] Start: 05-14-2023 Administration of prophylactic treatment [facility] Start: 05-14-2023 End: 05-14-2023 [facility] Start: 05-14-2023 Hospital admission [facility] Start: 05-14-2023 Microbial culture of sputum [facility] Start: 05-13-2023 CT Chest [facility] Start: 05-13-2023 End: 07-13-2023 CREATININE BLD CREATININE BLD Lab Routine Neoplasm of lung Expected: 05/13/2023 (Approximate), Expires: 07/13/2023 [facility] Work Phone: Comment on above: Expected: 05/13/2023 (Approximate), Expires: 07/13/2023 Start: 05-13-2023 End: 12-27-2023 CT CHEST W IVCON CT CHEST W IVCON Radiology Routine Neoplasm of lung Expected: 05/13/2023 (Approximate), Expires: 12/27/2023 [facility] Work Phone: Comment on above: Expected: 05/13/2023 (Approximate), Expires: 12/27/2023 Start: 04-13-2023 Depression Assessment Depression Ass essment [facility] Start: 12-12-2022 Influenza vaccination [facility] Start: 06-06-2022 Adult depression screening assessment DEPRESSION SCREENING [facility] Start: 06-06-2022 End: 06-06-2022 CREATININE BLD CREATININE BLD Lab Routine Non-small cell cancer of left lung (HCC) Expected: 06/06/2022, Expires: 06/06/2022 [facility] Work Phone: Comment on above: Expected: 06/06/2022 , Expires: 06/06/2022 Start: 06-06-2022 End: 07-06-2022 Ct thorax w/contrast material CT CHEST W IVCON Radiology Routine Non-small cell cancer of left lung (HCC) Neoplasm of lung Expected: 06/06/2022, Expires: 07/06/2022 [facility] Work Phone: Comment on above: Expected: 06/06/2022 , Expires: 07/06/2022 Start: 04-24-2022 End: 06-24-2022 SARS-CoV-2 (COVID-19) RNA [Presence] in Respiratory specimen by KRUNAL with probe detection INTERMEDIATE RAPID COVID Microbiology Routine Preoperative examination Expected: 04/24/2022, Expires: 06/24/2022 [facility] Work Phone: Comment on above: Expected: 04/24/2022 , Expires: 06/24/2022 Start: 04-22-2022 End: 06-22-2022 Basic metabolic 2000 panel - Serum or Plasma BASIC METABOLIC PNL Lab STAT Lung mass Expected: 04/22/2022, Expires: 06/22/2022 [facility] Work Phone: Comment on above: Expected: 04/22/2022 , Expires: 06/22/2022 Start: 04-22-2022 End: 06-22-2022 CBC W Auto Differential panel - Blood CBC + DIFF Lab STAT Lung mass Expected: 04/22/2022, Expires: 06/22/2022 [facility] Work Phone: Comment on above: Expected: 04/22/2022 , Expires: 06/22/2022 Start: 04-13-2022 DEPRESSION ASSESSMENT DEPRESSION ASS ESSMENT [facility] Start: 12-12-2021 Influenza vaccination INFLUENZA (#1) [facility] Start: 2021 RSV Vaccine (1 - 1-d ose 60+ series) RSV Vaccine (1 - 1-dose 60+ series) [facility] Start: 04-13-2021 DEPRESSION ASSESSMENT DEPRESSION ASS ESSMENT [facility] Start: 03-02-2021 DIABETES SCREEN DIABETES SCREEN [facility] Start: 08-26-2011 SHINGRIX VACCINE (1 of 2) SHINGRIX VACCINE (1 of 2) [facility] Start: 2006 COLOGUARD (FIT-DNA) COLOGUARD (FIT-D NA) [facility] Start: 2006 Colonoscopy COLONOSCOPY [facility] Start: 2006 COLORECTAL CANCER SCREENING COLORECTAL CANCER SCREENING [facility] Start: [address] COLONOGRAPHY [facility] Start: 2006 FECAL OCCULT BLOOD FECAL OCCULT BLOO D [facility] Start: 2006 Lipid panel Lipid Screening [facility] Start: 2006 LIPID SCREEN LIPID SCREEN [facility] Start: 2006 Screening for malign ant neoplasm of colon [facility] Start: 2006 SIGMOIDOSCOPY SIGMOIDOSCOPY [facility] Start: 2001 Mammography MAMMOGRAM [facility] Start: 2001 Screening for malign ant neoplasm of breast Mammogram Screening [facility] Start: 08-26-1991 HPV TESTING HPV TESTING [facility] Start: 08-26-1991 Screening for malign ant neoplasm of cervix HPV Testing [facility] Start: 08-26-1991 Zoledronic acid therapy ALPHA- 1 ANTITRYPSIN DEFICIENCY SCREENING [facility] Start: 1982 PAP TESTING PAP TESTING [facility] Start: 1982 Screening for malign ant neoplasm of cervix Pap Testing [facility] Start: 1980 Urine microalbumin profile [facility] Start: 08-26-1979 ANNUAL PCP TEAM HAT CHECKER PREETHI DISEASE VISIT ANNUAL PCP TEAM CHRONIC DISEASE VISIT [facility] Start: 08-26-1979 HEPATITIS C SCREENING HEPATITIS C [facility] Start: 08-26-1979 Hepatitis C screening Hepatitis C [facility] Start: 08-26-1979 HIV SCREENING HIV SCREENING [facility] Start: 08-26-1979 HIV screening HIV Screening [facility] Start: 08-26-1979 SPIROMETRY SPIROMETRY [facility] Start: 08-26-1967 PNEUMOCOCCAL (1 - PCV) PNEUMOCOCCAL (1 - PCV) [facility] Start: 08-26-1967 Pneumococcal vaccination Pneum ococcal Vaccine (1 of 2 - PCV) [facility] Start: 1966 COVID-19 VACCINE (1) COVID-19 VACCIN E (1) [facility] Start: 02-25-1962 COVID-19 VACCINE (#1) COVID-19 VACCI NE (#1) [facility] End: 05-22-2023 Ct thorax w/o contrast material CT CHEST WO IVCON Radiology Routine Lung mass 1 Occurrences starting 04/22/2022 until 05/22/2023 [facility] Work Phone: Comment on above: 1 Occurrences starti ng 04/22/2022 until 05/22/2023 CYTOLOGY NON-BIOINFORMATICS TECHNICIAN [facility] Work Phone: Comment on above: Release Upon Orderin g for 1 Occurrences starting 05/09/2022, 1 completed End: 04-22-2023 ECG COMPLETE ECG COMPLETE ECG STAT Lung mass 1 Occurrences starting 04/22/2022 until 04/22/2023 [facility] Work Phone: Comment on above: 1 Occurrences starti ng 04/22/2022 until 04/22/2023 Patient Education Chronic Obstru ctive Pulmonary Disease (COPD) (DC) Levofloxacin (Systemic) Pneumonia, Adult (DC) [facility] Work Phone: Patient referral [facility] Work Phone: End: 03-22-[address] attenuation skull base mid-thigh NM PET/CT SKULL-THIGH INITIAL Radiology Routine Neoplasm of lung 1 Occurrences starting 02/21/2022 until 03/22/2023 [facility] Work Phone: Comment on above: 1 Occurrences starti ng 02/21/2022 until 03/22/2023 SARS-CoV-2 (COVID-19 ) RNA [Presence] in Respiratory specimen by KRUNAL with probe detection SELF CHECK COVID Microbiology Routine Lung mass Ordered: 04/22/2022 [facility] Work Phone: Comment on above: Ordered: 04/22/2022 SURGICAL PATHOLOGY [facility] Work Phone: Comment on above: Release Upon Kurt nicole for 1 Occurrences starting 05/09/2022, 1 completed [facility] Immunizations Immunization Date Immunization Notes Care Provider Fa cili 03-04-2022 influenza, injectabl e, quadrivalent, preservative free Vitor Farias MD Work Phone: [facility] 03-04-2022 influenza virus vacc ine, unspecified formulation Abdi Iqbal MD Work Phone: [facility] 03-19-2021 influenza, injectabl e, quadrivalent, preservative free Vitor Farias MD Work Phone: [facility] 02-22-2021 influenza virus vacc ine, unspecified formulation Vitor Farias MD Work Phone: [facility] 03-02-2020 Influenza, injectabl e, Madin Oelrichs Canine Kidney, preservative free, quadrivalent Vitor Farias MD Work Phone: [facility] 02-02-2019 Influenza, injectabl e, Madin Oelrichs Canine Kidney, preservative free, quadrivalent Vitor Farias MD Work Phone: [facility] 03-02-2018 influenza, injectabl e, quadrivalent, contains preservative Abdi Iqbal MD Work Phone: [facility] Payers Date Payer Category Payer Self-pay [id number] 2018 Medicaid [employer] [id number] 2018-Present [phone] [address] [place] [address] Medicaid [id number] 2018 Medicaid [id number] 1961 Unknown [id number] 1961 Unknown [id number] 1961 Unknown [id number] 1961 Unknown [id number] 1961 Unknown [id number] 1961 Unknown [id number] 1961 Unknown [id number] [id number] 1961 Unknown [id number] 1961 Unknown [id number] 1961 Unknown [id number] 1961 Unknown [id number] 1959 Self-pay [id number] 1959 Unknown [id number] 1959 Unknown [id number] Unknown [id number] Social History Date Type Detail Facility Start: 03-02-2018 End: 03-14-2022 Tobacco smoking status NHIS Ex-smoker [facility] End: 04-13-2012 History of tobacco use Current smoker [facility] Start: 03-02-2018 End: 11-27-2022 Cigarettes smoked current (pack per day) - Reported 1.5 [facility] Start: 03-02-2018 End: 03-14-2022 Tobacco use and exposure Smokeless tobacco non-user [facility] Start: 06-06-2021 End: 03-14-2022 Alcohol intake Current drinker of alcohol (finding) [facility] Start: 1960 Sex Assigned At Not on file C [facility] Start: 05-07-2021 End: 03-14-2022 Exposure to SARS-CoV-2 (event) Not sure [facility] End: 04-13-2012 History of tobacco use Cigarette Smoker [facility] Work Phone: Start: 03-14-2022 End: 11-27-2022 Sex Assigned At [facility] Adult Depression Screening Assessment 0 [facility] Start: 1960 Sex Assigned At Female F [facility] Clinical Notes 05-14-2011 to 05-20-2023 Telephone Encounter - Elidia Rinaldi - 05/20/2023 9:59 AM ESTTelephone Encounter - Silvia Lomax RN - 05/20/2023 9:51 AM Abdi Mayorga MD - 11/27/2022 10:30 AM EDT Note Date & Type Note Facility 05-20-2023 Miscellaneous Notes Patient is called and scheduled for next week Pt called in and was admitted to [facility] last week. They did CT Chest. She has been waiting on insurance approval for a chest CT and will not need one now. She would like follow up arranged. Reports printed from [facility] and images requested. PSS- please call pt and arrange follow up with Dr Iqbal for next week. Thank you Silvia Lomax RN documented in this encounter [facility] 11-27-2022 Note HNO ID: [id number] Author: Abdi Iqbal MD Service: ? Author Type: Physician Type: Progress Notes Filed: 12/09/2022 9:33 PM Note Text: Radiation Oncology - Follow Up Note PATIENT NAME: CINTHIA Stanley PATIENT DIAGNOSIS/PATIENT IDENTIFICATION: Ms. Stanley is a 62-year-old woman with severe COPD, who is diagnosed with Stage IA3, [id number], non-small cell lung cancer arising from a [...] been following up with pulmonary therapy at [facility] and with her bone crusher Dr. Driver and using her nebulizers. She [...] COPD, who is diagnosed with Stage IA3, [id number], non-small cell lung cancer arising from a [...] the chest. She will follow with her bone crusher Dr. Driver to optimize her respiratory function [...] which included preparing to see the patient, xeys-cp-[id number] patient care, and counseling and educating the patient/family/caregiver. This document has been created with the use of voice recognition technology. It may contain inaccuracies, missp (more content not included)... [facility] 11-27-2022 History of Presen t illness Narrative Images from the original note were not included. Radiation Oncology - Follow Up Note PATIENT NAME: CINTHIA Stanley PATIENT DIAGNOSIS/PATIENT IDENTIFICATION: Ms. Stanley is a 62-year-old woman with severe COPD, who is diagnosed with Stage IA3, [id number], non-small cell lung cancer arising from a [...] been following up with pulmonary therapy at [facility] and with her bone crusher Dr. Driver and using her nebulizers. She [...] COPD, who is diagnosed with Stage IA3, [id number], non-small cell lung cancer arising from a [...] the chest. She will follow with her bone crusher Dr. Driver to optimize her respiratory function [...] which included preparing to see the patient, mgxw-[id number] patient care, and counseling and educating the patient/family/caregiver. This document has been created with the use of voice recognition technology. It may contain inaccuracies, misspellings, inaccurate syntax or inappropriate word context that are a result of the inadequacies/shortcomings of said technology/software. documented in this encounter [facility] 11-18-2022 Miscellaneous Notes FYI--Dr. Driver's progress note is available in Care Everywhere. Dr. Bass's office note to be faxed over per his office. Anita Pressley LPN Pt notified, CT canceled. Katerina working on records from Dr Bass and Dr Driver. Images/report being pushed from [facility]. Ced Victoria RN Yes, please cancel CT tomorrow. In addition to the images, please request any office notes from Dr. Bass as well as her bone crusher. Thanks! Abdi Pt called for CT 11/19/22. She reports CT completed 09/24/22 at [facility]. CT chest verified and will send images/report. LORENZO: Would you like to cancel CT? Please advise Ced Victoria RN documented in this encounter [facility] 06-26-2022 Evaluation note Encounter Date Diagnosis [...] History of lung cancer (ICD-10 - Z85.118) [employer] Other 02-21-2023 NoteHNO ID: [id number] Author: Abdi Iqbal MD Service: ? Author Type: Physician Type: Progress Notes Filed: 06/15/2022 8:09 PM Note Text: Radiation Oncology - Follow Up Note PATIENT NAME: CINTHIA Stanley PATIENT DIAGNOSIS/PATIENT IDENTIFICATION: Ms. Stanley is a 61-year-old woman with severe COPD, who is diagnosed with Stage IA3, [id number], non-small cell lung cancer arising from a [...] Aspergillus. These results were discussed with her bone crusher Dr. Cross and the patient was referred [...] oxygen via nasal cannula at 2 L [id number]-tqtlj. She notes that her cough is improved [...] COPD, who is diagnosed with Stage IA3, [id number], non-small cell lung cancer arising from a [...] for malignancy but show (more content not included)...[facility] 06-02-2022 History of Present illness Narrative* Abdi Iqbal MD - 06/02/2022 11:53 PM EST Radiation Oncology - Follow Up Note PATIENT NAME: CINTHIA Stanley PATIENT Signed by: Abdi Iqbal MD I spent a total of 20 minutes on the date of the service which included preparing to see the patient, johm-fw-bvni patient care, and counseling and educating the patient/family/caregiver. This document has been created with the use of voice recognition technology. It may contain inaccuracies, misspellings, inaccurate syntax or inappropriate word context that are a result of the inadequacies/shortcomings of said technology/software. documented in this encounterProtestant Hospital02-09-[facility]23 Evaluation note* Encounter Date Diagnosis Assessment [...] History of lung cancer (ICD-10 - Z85.118) [employer] Other 02-01-2023 Miscellaneous Notes* Telephone Encounter - Abdi Iqbal MD - 05/14/2022 10:40 PM EST Thanks! Abdi * Telephone Encounter - Kendal Lomax [facility] - 05/14/2022 1:59 PM EST Records faxed to Dr. Conde. Requested images be pushed to [facility]. * Telephone Encounter - Telma Pak - [...] yesterday showing fungal/aspergillus infection. Spoke with her bone crusher, Dr. Cross, today and agreed to refer to Dr. Conde for ID consult and management of pulmonary infection. Please send last years worth of notes and CT images in addition to pathology results. Thanks! Abdi * Telephone Encounter - Anita Pressley LPN - 05/14/2022 11:56 AM EST Telma: Will you please refer Cara to Dr. Conde for consult aleks dx: Fungal hyphae present, morphologically consistent with Aspergillus species (see comment. Dr. Iqbal--please sign pended consult order. I left two messages for Cara to call the office so we can notify her that we are arranging this appt. Thanks Anita Pressley LPN documented in this encounterProtest[facility] Hospital01-27-2023 History of Present illness Narrative* Interface Note - 05/09/2022 8:00 PM EST Epic Scheduled Downtime: 05/10/2022 1:00:00 AM to 05/10/2022 3:56:00 AM documented in this encounterProtestant Hospital01-27-2023 Nurse Note* Luz Maria Blanca RN [...] Luz Maria Blanca RN documented in this encounterProtestant Hospital01-16-2023 NoteHNO ID: [id number] Author: Vitor Farias MD Service: ? Author Type: Physician Type: Progress Notes Filed: 04/28/2022 4:35 PM Note Text: VIRTUAL VISIT PROGRESS NOTE This is a virtual visit using [employer] video visit. It required patient-provider interaction for the medical decision making as documented below. Cara Stanley is a 61 year old female [...] eating well. COPD managed locally by a bone crusher. HISTORY REVIEWED (electronic chart updated): PAST MEDICAL [...] Emphysema. Controlled and stable; managed by local bone crusher. I spent a total of 60 minutes on the date of the service which included preparing to see the patient, cvoz-ql-blgz patient care, completing clinical documentation, obtaining and/or reviewing separately obta (more content not included)...[id number] History of Present illness Narrative* Vitor Farias MD - 04/28/2022 3:03 PM EST VIRTUAL VISIT PROGRESS NOTE This is a virtual visit using [employer] video visit. It required patient-provider interaction for themedical decision making as documented below. Cara Stanley is a 61 year old female [...] eating well. COPD managed locally by a bone crusher. HISTORY REVIEWED (electronic chart updated): PAST MEDICAL [...] Emphysema. Controlled and stable; managed by local bone crusher. I spent a total of 60 minutes on the date of the service which included preparing to see the patient, srgl-gn-vuqo patient care, completing clinical documentation, obtaining and/or reviewing separately obtained history, performing a medically appropriate examination, counseling and educating the pat ient/family/caregiver, ordering medications, tests, or procedures, communicating with other HCPs (not separately reported), independently interpreting results (not separately reported), communicatingresults to the patient/family/caregiver, and care coordination (not separately reported) Vitor Farias MD April 28, 2022 documented in this encounterProtestant Hospital01-11-2023 Miscellaneous Notes* Telephone Encounter - Telma Pak - 04/23/2022 9:58 AM EST Patient has been scheduled for both & confirmed appt day & time. Telma Pak * Telephone Encounter - Telma Pak - 04/23/2022 9:10 AM EST Called patient to schedule her for EKG & labs per e-mail. No answer, LMOV requesting a returnedphone call. 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 Please try to access the PET avid area if possible. Consultation request/referral by: Abdi Iqbal MD ([facility]) Reviewed by: PHANI Farias MD April 22, 2022 3:49 PM Addendum: CBC with diff: WBC 6.81 03/02/2018 RBC 4.94 03/02/2018 Hemoglobin 14.7 03/02/2018 Hematocrit 44.5 03/02/2018 MCV 90.1 03/02/2018 MCH 29.8 03/02/2018 MCHC 33.0 03/02/2018 RDW-CV 12.4 03/02/2018 Platelet Count 234 03/02/2018 MPV 10.3 03/02/2018 Neut% 64.3 03/02/2018 Lymph% 25.3 03/02/2018 Peñuelas% 9.1 03/02/2018 Eosin% 0.7 03/02/2018 Baso% 0.6 03/02/2018 Abs Neut (ANC) 4.36 03/02/2018 Abs Peñuelas 0.62 03/02/2018 Abs Eosin 0.05 03/02/2018 Abs [...] - 0.96 mg/dL Final documented in this encounterProtestant Hospital01-10-2023 Miscellaneous Notes* Telephone Encounter - Anita [...] time. Anita Pressley LPN documented in this encounterProtestant Hospital12-02-2022 History of Present illness Narrative* Abdi Iqbal MD - 03/14/2022 11:44 PM EST Radiation Oncology - Follow Up Note PATIENT NAME: Cara Stanley PATIENT Signed by: Abdi Iqbal MD I spent a total of 20 minutes on the date of the service which included preparing to see the patient, kyle-un-cliy patient care, and counseling and educating the patient/family/caregiver. This document has been created with the use of voice recognition technology. It may contain inaccuracies, misspellings, inaccurate syntax or inappropriate word context that are a result of the inadequacies/shortcomings of said technology/software. documented in this encounterProtestant Hospital11-11-2022 Miscellaneous Notes* Telephone Encounter - Telma [...] then follow-up to review documented in this encounterProtestant Hospital11-10-2022 Miscellaneous Notes* Telephone Encounter - Anita [...] then follow-up to review documented in this encounterProtestant Hospital02-24-2022 History of Present illness Narrative* Abdi Iqbal MD - 06/06/2021 4:50 PM EST Radiation Oncology - Follow Up Note PATIENT NAME: Cara Stanley PATIENT DIAGNOSIS/PATIENT IDENTIFICATION: Ms. Stanley is a 60-year-old woman with severe COPD, who is diagnosed with Stage IA3, [id number], non-small cell lung cancer arising from a [...] COPD, who is diagnosed with Stage IA3, [id number], non-small cell lung cancer arising from a [...] which included preparing to see the patient, pfsb-va-pkqt patient care and counseling and educating the patient/family/caregiver. This document has been created with the use of voice recognition technology. It may contain inaccuracies, misspellings, inaccurate syntax or inappropriate word context that are a result of the inadequacies/shortcomings of said technology/software. documented in this encounterProtestant Hospital10-01-2021 NoteChief Complaint consultation for nevus HPI Staff 60 year old female presents on consultation from Dr. Bass for right lower leg fresh colored skin lesion. Present for 4 months. Scabbed area from recent trama. Denies itching. Also notes dark pigmentedlesion to right muslim. Present 4 months. Does not bleed or itch. History of Present Illness 60 yo female with h/o COPD, previous lung cancer, on oxygen; referred for changing skin lesions; right lower extremity lesion enlarging; recently scratched so scabbed over; no bleeding; right muslim lesion with small scab, no pain or [...] nodes, cyanosis, clubbing. Skin: no rashes right muslim with 4 mm raised, erythematous lesion with [...] infarction: Brother. Cardiac arrest: Mother, Father and Sister.[facility] HospitalComment on above:Result Comment: Electronically Signed By: JIM DAVENPORT, Jose Domínguez\Date and Time Signed: 01/11/21 11:20 [id number] History general Narrative - Reported* Type Description Date Medical History COPD Surgical History appendectomy Surgical History csection Hospitalization History PNA at [place] 05/2011 [employer] Other Evaluation note* Diagnosis Non-small cell cancer of left lung (HCC)- Primary Neoplasm of lung Neoplasm of unspecified nature of respiratory system [facility]* Diagnosis Neoplasm of lung- Primary Neoplasm of unspecified nature of respiratory system [facility]* Diagnosis Non-small cell cancer of left lung (HCC)- Primary [facility]* Diagnosis Lung mass- Primary Swelling, mass, or lump in chest [facility]* Diagnosis Preoperative examination- Primary Preoperative examination, unspecified Bronchiolar disease Other diseases of trachea and bronchus [facility]* Diagnosis Non-small cell cancer of left lung (HCC)- Primary Lung mass Swelling, mass, or lump in chest Centrilobular emphysema (HCC) Other emphysema Bronchiolar disease Other diseases of trachea and bronchus [facility] Diagnosis Bronchiolar disease Other diseases of trachea and bronchus Lung nodule Solitary pulmonary nodule documented in this encounter [facility] note* Diagnosis Aspergillus pneumonia (HCC)- Primary Aspergillosis Non-small cell cancer of left lung (HCC) [facility]* Diagnosis Non-small cell cancer of left lung (HCC)- Primary documented in this encounter [facility] noteNo [employer] Other Evaluation note* Diagnosis Neoplasm of lung- Primary Neoplasm of unspecified nature of respiratory system documented in this encounter [facility] note* Diagnosis Onset Date Resolution Status Chronic respiratory failure with hypoxia acute COPD exacerbation acute Exertional shortness of breath acute Pneumonia acute Pulmonary cachexia due to COPD acute Tachycardia acute [facility] Work Phone: Evaluation note* Diagnosis Onset Date Resolution Status Acute hypoxic respiratory failure acute Cachexia acute Chronic respiratory failure with hypoxia acute COPD exacerbation acute Exertional shortness of breath acute Pneumonia acute Pulmonary cachexia due to COPD acute Tachycardia acute [facility] Work Phone: Hospital Discharge instructions Additional Instructions I may not have addressed or treated all of your medical illnesses or the abnormal blood work or imaging studies during this hospitalization. Please ask your primary care provider to obtain [facility] records entirely to follow up on all of the abnormal physical, laboratory, and imaging findings that I have not addressed. Please return back to the emergency room or seek medical attention if your symptoms worsen or return. You asked me to give you the name of the lung specialist who is affiliated with [facility]. Please follow-up with Dr. Rasmussen regarding COPD, lung nodule and pulmonary care. Until you get your first appointment with Dr. Rasmussen, continue to follow-up with Dr. Driver guarding your lung nodule and COPD You would need to have follow-up on lung nodule that is seen before Discharging you from [facility] does not mean that your medical care [...] Thank you. Continue home oxygen per chronic orders.[facility] Work Phone: Reason for referral (narrative)* Diagnostic Procedure Only (Routine) - Additional Clinical Info Needed Specialty Diagnoses / Procedures Referred By Dwayne t Referred To Contact MOLECULAR & FUNCTIONAL IMAGING Diagnoses Neoplasm of lung Procedures NM PET/CT SKULL-THIGH INITIAL PET IMAGING CT ATTENUATION SKULL BASE MID-THIGH Abdi Iqbal MD [address] [place] [address] [place] [address] Molecular & Functional Imaging [address] [place] [address] Referral ID Status Reason Start Date Expiration Date Visits Requested Visits Authorized [id number] Additional Clinical Info Needed Auto-Generat ed Referral 03/22/2023 1 1 [facility] Summary Purpose Family History No Family History Records FoundNo Family History Records FoundNo Family History Records FoundNo Family History Records FoundNo Family History Records FoundNo Family History Records FoundNo Family History Records FoundNo Family History Records FoundNo Family History Records Found Advance Directives No Advanced Directives Records FoundDocuments on File Type Date Recorded Patient Safety Assistant Expl anation Advance Directive(s) Advance Directive(s) 03/19/2018 8:37 AM Advance Directive Response Recorded Date/ Time Advance Directives No February 11:15am Reason for Referral Specialty Diagnoses / Procedures [facility] To Contact CT IMAGING Diagnoses Non-small cell cancer of left lung (HCC) Neoplasm of lung Procedures CT CHEST W IVCON DIAGNOSTIC COMPUTED TOMOGRAPHY THORAX W/CONTRAST Abdi Iqbal MD [address] [place] [address] [place] [address] Ct Imaging Referral ID Status Reason Start Date Expiration Date Visits Requested Visits Authorized [id number] Pending Review Auto-Generat ed Referral 06/06/2022 07/06/2022 1 1 Specialty Diagnoses / Procedures Referred By Contac t Referred To Contact CT IMAGING Diagnoses Lung mass Procedures CT CHEST WO IVCON DIAGNOSTIC COMPUTED TOMOGRAPHY THORAX W/O CNTRST Vitor Farias MD [address] [place] [address] Ct Imaging Referral ID Status Reason Start Date Expiration Date Visits Requested Visits Authorized [id number] Pending Review Auto-Generat ed Referral 04/22/2022 05/22/2023 1 1 Specialty Diagnoses / Procedures Referred By Contac t Referred To Contact [facility] Diagnoses Lung mass Procedures ECG COMPLETE ECG ROUTINE ECG W/LEAST 12 LDS W/I&[place] [address] [place], [place] [id number] [facility] [address] [address] Referral ID Status Reason Start Date Expiration Date Visits Requested Visits Authorized [id number] Pending Review Auto-Generat ed Referral 04/22/2022 04/22/2023 1 1 Specialty Diagnoses / Procedures Referred By Contac t Referred To Contact Infectious Diseases Diagnoses Aspergillus pneumonia (HCC) Non-small cell cancer of left lung (HCC) Procedures CONSULT TO INFECTIOUS DISEASES Abdi Iqbal MD [address] [place] [address] [place] [address] Referral ID Status Reason Start Date Expiration Date Visits Requested Visits Authorized [id number] Ref Not Required PCP Requested Referral 05/14/2022 05/14/2023 1 1 Specialty Diagnoses / Procedures Referred By Contac t Referred To Contact CT IMAGING Diagnoses Neoplasm of lung Procedures CT CHEST W IVCON DIAGNOSTIC COMPUTED TOMOGRAPHY THORAX W/CONTRAST Abdi Iqbal MD [address] [place] [address] [place] [address] Ct Imaging [facility] Referral ID Status Reason Start Date Expiration Date Visits Requested Visits Authorized [id number] Pending Review Auto-Generat ed Referral 05/13/2023 12/27/2023 [...] section and content) DATE CREATED AUTHOR 10/06/2017 [facility] DATE CREATED AUTHOR AUTHOR'S ORGANIZ ATION 10/09/[address] [facility] DATE CREATED AUTHOR AUTHOR'S ORGANIZ ATION 03/22/2018 [facility] DATE CREATED AUTHOR AUTHOR'S ORGANIZ ATION 03/26/2021 [facility] DATE CREATED AUTHOR AUTHOR'S ORGANIZ ATION 04/29/2022 [facility] DATE CREATED AUTHOR AUTHOR'S ORGANIZ ATION 09/19/2022 [facility] DATE CREATED AUTHOR AUTHOR'S ORGANIZ ATION 05/26/2023 [facility] DATE CREATED AUTHOR AUTHOR'S ORGANIZ ATION 05/31/2023 [facility] DATE CREATED AUTHOR AUTHOR'S ORGANIZ ATION 07/15/2023 [facility] EPIC Source Comments (unrecognize d section and content) In the event this informatio n is protected by the Federal Confidentiality of Alcohol and Drug Abuse Patient Records regulations: The Federal rules restrict any use of the information to criminally investigate or prosecute any alcohol or drug abuse patient.[facility] the event this information is protected by the Federal Confidentiality of Alcohol and Drug Abuse Patient Records regulations: The Federal rules restrict any use of the information to criminally investigate or prosecute any alcohol or drug abuse patient.[facility] the event this information is protected by the Federal Confidentiality of Alcohol and Drug Abuse Patient Records regulations: The Federal rules restrict any use of the information to criminally investigate or prosecute any alcohol or drug abuse patient.[facility] the event this information is protected by the Federal Confidentiality of Alcohol and Drug Abuse Patient Records regulations: The Federal rules restrict any use of the information to criminally investigate or prosecute any alcohol or drug abuse patient.[facility] the event this information is protected by the Federal Confidentiality of Alcohol and Drug Abuse Patient Records regulations: The Federal rules restrict any use of the information to criminally investigate or prosecute any alcohol or drug abuse patient.[facility] the event this information is protected by the Federal Confidentiality of Alcohol and Drug Abuse Patient Records regulations: The Federal rules restrict any use of the information to criminally investigate or prosecute any alcohol or drug abuse patient.[facility] the event this information is protected by the Federal Confidentiality of Alcohol and Drug Abuse Patient Records regulations: The Federal rules restrict any use of the information to criminally investigate or prosecute any alcohol or drug abuse patient.[facility] Hospital[facility] the event this information is protected by the Federal Confidentiality of Alcohol and Drug Abuse Patient Records regulations: The Federal rules restrict any use of the information to criminally investigate or prosecute any alcohol or drug abuse patient.[facility] Hospital[facility] the event this information is protected by the Federal Confidentiality of Alcohol and Drug Abuse Patient Records regulations: The Federal rules restrict any use of the information to criminally investigate or prosecute any alcohol or drug abuse patient.[facility] the event this information is protected by the Federal Confidentiality of Alcohol and Drug Abuse Patient Records regulations: The Federal rules restrict any use of the information to criminally investigate or prosecute any alcohol or drug abuse patient.[facility] Hospital[facility] the event this information is protected by the Federal Confidentiality of Alcohol and Drug Abuse Patient Records regulations: The Federal rules restrict any use of the information to criminally investigate or prosecute any alcohol or drug abuse patient.[facility] Hospital[facility] the event this information is protected by the Federal Confidentiality of Alcohol and Drug Abuse Patient Records regulations: The Federal rules restrict any use of the information to criminally investigate or prosecute any alcohol or drug abuse patient.[facility] Hospital[facility] the event this information is protected by the Federal Confidentiality of Alcohol and Drug Abuse Patient Records regulations: The Federal rules restrict any use of the information to criminally investigate or prosecute any alcohol or drug abuse patient.[facility] Hospital[facility] the event this information is protected by the Federal Confidentiality of Alcohol and Drug Abuse Patient Records regulations: The Federal rules restrict any use of the information to criminally investigate or prosecute any alcohol or drug abuse patient.[facility] Hospital[facility] the event this information is protected by the Federal Confidentiality of Alcohol and Drug Abuse Patient Records regulations: The Federal rules restrict any use of the information to criminally investigate or prosecute any alcohol or drug abuse patient.[facility] Hospital[facility] the event this information is protected by the Federal Confidentiality of Alcohol and Drug Abuse Patient Records regulations: The Federal rules restrict any use of the information to criminally investigate or prosecute any alcohol or drug abuse patient.[facility] Reason for Visit (unrecogniz ed section and content) Reason Comments Lung Cancer Reason Comments Orders Reason Comments Orders Reason Comments Lung Cancer Reason Comments Appointment PreOp Bronch Reason Comments Patient Update Appointment Reason Comments Lung Cancer Lung Mass Reason Comments Appointment Specialty Diagnoses / Procedures Referred By Contac t Referred To Contact ADMITTING Diagnoses Bronchiolar disease Procedures [facility] INCL FLUOR GDNCE DX W/CELL WASHG SPX BRONCHOSCOPY [facility] H[address] [address] Referral ID Status Reason Start Date Expiration Date Visits Re quested Visits Authorized [id number] 1 1 Reason Comments Appointment Reason Comments Patient Update Future Appointment Care Teams (unrecognized sec tion and content) Varnishing Machine Operator Relationship Specialty Start Date End Date Adithya Bass MD [address] [facility] [place] [address] PCP - General Family Practice 02/25/18 Varnishing Machine Operator Relationship Specialty Start Date End Date Adithya Bass MD [address] [facility] [place] [address] PCP - General Family Medicine 02/25/18 Varnishing Machine Operator Relationship Specialty Start Date End Date Adithya Bass MD [address] [facility] [place] [address] PCP - General Family Medicine 02/25/18 Varnishing Machine Operator Relationship Specialty Start Date End Date Adithya Bass MD [address] [facility] [place] [address] PCP - General Family Medicine 02/25/18 Varnishing Machine Operator Relationship Specialty Start Date End Date Adithya Bass MD [address] [facility] [place] [address] PCP - General Family Medicine 02/25/18 Varnishing Machine Operator Relationship Specialty Start Date End Date Adithya Bass MD [address] [facility] [place] [address] PCP - General Family Medicine 02/25/18 Varnishing Machine Operator Relationship Specialty Start Date End Date Adithya Bass MD [address] [facility] [place] [address] PCP - General Family Medicine 02/25/18 Varnishing Machine Operator Relationship Specialty Start Date End Date Adithya Bass MD [address] [facility] [place] [address] PCP - General Family Medicine 02/25/18 Varnishing Machine Operator Relationship Specialty Start Date End Date Adithya Bass MD [address] [facility] [place] [address] PCP - General Family Medicine 02/25/18 Varnishing Machine Operator Relationship Specialty Start Date End Date Adithya Bass MD PCP - [facility] 02/25/18 Varnishing Machine Operator Relationship Specialty Start Date End Date Adithya Bass MD PCP - [facility] 02/25/18 Team Status: Active Member Role [...] BE BASED ON THE PRIMARY CLINICAL RECORDS. [facility] [employer] [facility]. provides no warranty or guarantee of the accuracy or completeness of information in this document.
[2023-08-13 08:03] LABS: Estimated GFR (African America >60 (>=60); Estimated GFR (Non-African Ame >60 (>=60)
--- NOTE | 2023-08-13 08:29 | CT_ITS ---
[address] [address] Patient Name: PHOEBE STANLEY MRN: [id number] date: 1960 Sex: F Assigned Patient Location: LAB Current Patient Location: LAB Accession/Order Number: [id number] Exam Date: 08/13/2023 08:15 Report Date: 08/13/2023 15:29 At the request of: ADITHYA KENYON Procedure: CT chest wo/w con EXAMINATION: CT chest wo/w con HISTORY: Solitary Pulmonary Nodule R91.1 COMPARISON: 07/22/2023, 05/13/2023 TECHNIQUE: Axial, Coronal, and Sagittal images were created without and with IV contrast. Dose reduction techniques were achieved by using automated exposure control and/or adjustment of mA and/or kV according to patient size and/or use of iterative reconstruction technique. FINDINGS: LUNGS: There is been significant interval change in soft tissue attenuation along the superior left hilum with central pleomorphic calcifications extending into the left lung parenchyma with minimal retraction and pleural thickening. The soft tissue component of the hilum contains some calcifications and measures 5.6 x 4.2 cm axial image #22 with the soft tissue components somewhat ill-defined and wedged shaped. Severe centrilobular emphysema is again observed. PLEURA: No mass, effusion, or pneumothorax. VASCULATURE: No abnormality. FREDDY: No mass or adenopathy. MEDIASTINUM: No mass or adenopathy. CARDIAC: No enlargement or pericardial effusion. Mild coronary atherosclerosis AORTA: No aortic aneurysm. Mild calcific atherosclerosis CHEST WALL: No mass or axillary adenopathy. BONES: No bone lesion or fracture. LIMITED ABDOMEN: Partially visualized 1.5 cm right renal hypodensity possibly a cyst OTHER: Negative. CT/CT chest wo/w con IMPRESSION: Significant interval change in configuration of left upper lobe soft tissue mass with pleomorphic calcifications extending into the left upper lobe parenchyma and pleura. Malignancy should be excluded. Consider tissue sampling for histopathologic diagnosis and/or PET/CT to evaluate metabolic status Electronically authenticated by: JULES RAMIREZ Date: 08/13/2023 15:29
== END 2023-08-13 07:46 | disposition home or self-care (01) ==
LOC: LAB 07:45
PROVIDERS: PCP Family Medicine; Visit Provider Family Medicine
DX: R91.1 Solitary pulmonary nodule (principal); R91.8 Other nonspecific abnormal finding of lung field
CPT/HCPCS: 36415; 71270; 82565; Q9967

== ENCOUNTER 2023-09-17 09:03 | Outpatient (OUT) | payer OTHER, SELFPAY ==
--- NOTE | 2023-09-17 09:00 | RT_ITS ---
The [facility] Test Date: 2023-09-17 Pat Name: PHOEBE STANLEY Department: Room: - Gender: Female Software Licensing Analyst: Marilyn Maynard RRT : 1960 Requested By: ADITHYA KENYON Order Number: [id number] Shiv MD: Anival Cross Interpretive Statements Pulmonary function testing was completed according to ATS criteria. Findings were considered accurate and reproducible, with exception of DLCO which did not meet ATS standards. Both pre- and post-bronchodilator values utilized for spirometry. Spirometry (based on pre-bronchodilator values): -FEV1/FVC: Reduced @ 33% -FEV1: Very severely reduced @ 17% -FVC: Severely reduced @ 42% -DSJ65-64%: Reduced @ 7% -There is a positive bronchodilator response in FVC. Lung volumes by plethysmography: -RV: Increased @ 236% -TLC: Increased @ 125% Diffusion capacity: -DLCO: Very severe reduction @ 21% when corrected for Hb 12.2g/dL Impressions: -Very severe obstructive pattern on spirometry. An elevated RV and TLC suggest air trapping and hyperinflation respectively. There is a very severely reduced diffusion capacity. Overall study is compatible with very severe emphysema/COPD. Clinical correlation required. Electronically Signed On 09-22-2023 16:03:41 EDT by Anival Cross
[2023-09-17 09:15] LABS: Hemoglobin 12.2 g/dL (12.0-16.0)
[2023-09-17] MEDS: ALBUTEROL SULFATE 2.5 MG/3 ML VIAL NEB IH (10:14)
== END 2023-09-17 09:04 | disposition home or self-care (01) ==
LOC: CARD 09:04
PROVIDERS: PCP Family Medicine; Visit Provider Family Medicine
DX: J44.9 Chronic obstructive pulmonary disease, unspecified (principal); C34.12 Malignant neoplasm of upper lobe, left bronchus or lung
CPT/HCPCS: 36415; 85018; 94060; 94726; 94729

== ENCOUNTER 2023-12-13 04:25 | Inpatient (IN) | payer OTHER, SELFPAY ==
[2023-12-13] VITALS (37 sets, daily range): BP systolic 113–153; BP diastolic 64–84; PULSE 98–132; TEMP 36.3–36.7; O2SAT 91–97; BMI 16.3
--- OUTSIDE RECORDS SUMMARY | 2023-12-13 04:37 | XMS_ITS | CCD ---
Author Organization [facility] CliniSymo Care Team Providers Care Drug Safety Assistant Name Role Phone Adithya Kenyon Unavailable Unavailable JAYE HOUGH Unavailable Unavailable ADITHYA KENYON Unavailable Unavailable ABDDUGLAS ARIAS Unavailable Unavailable Adithya Kenyon MD Primary Care Provider [phone] Adithya Kenyon MD Primary Care Provider [phone] Adithya Kenyon MD Primary Care Provider [phone] JOSE CONDE Admitting [...] Consulting Unavailable OMAR ., TAMIA Consulting Unavailable DARAMOLAPHUONGFABIOLA Consulting Unavailable ITKIN, EAMON Consulting Unavailable HOY ., DR HAJI Admitting Unavailable HOY ., DR HAJI Attending Unavailable HOY ., DR HAJI Consulting Unavailable HOY ., DR HAJI Primary Care Unavailable WARD, DR JULES [place] Consulting Unavailable HOY ., [...] Unavailable Adithya Kenyon MD Primary Care Provider [phone] Ally Warner Admitting Unavailable Hoy, Adithya M Primary Care Unavailable Cassandra Andersen Attending Unavailable ANA DRIVER Attending Unavailable ANA DRIVER Attending Unavailable CARLA MONTAGUE Attending Unavailable Adithya Kenyon MD Primary Care Provider [phone] TEO CRAFT Referring Unavailable HOY, ADITHYA M Primary Care Unavailable PRENDESABION Referring Unavailable HOY, ADITHYA M Primary Care Unavailable HOY, ADITHYA M Primary Care Unavailable BRIE KAUR Referring Unavailable LINDY, ABDI Referring Unavailable HOY, ADITHYA M Primary Care Unavailable HOY, ADITHYA M Primary Care Unavailable STOCK, KHUSHBOO E Admitting Unavailable STOCK, KHUSHBOO E Attending Unavailable HOY, ADITHAY M Primary Care Unavailable LINDY, ABDI Attending Unavailable LINDY, ABDI Referring Unavailable HOY, ADITHYA M Primary Care Unavailable TEO CRAFT L Attending Unavailable HOY, ADITHYA M Primary Care Unavailable HOY, ADITHYA M Primary Care Unavailable VENANCIO, TEO L Admitting Unavailable TEO CRAFT L Attending Unavailable Allergies Allergy Classification Reported Allergen(s) Allergy Type Date of Onset Reaction(s) Facility (20 sources) levoFLOXacin; Translations: [LEVOFLOXACIN] Drug Allergy 03-02-2018 Unknown [facility] Other [place] [facility] (2 sources) levoFLOXacin Drug Allergy [facility] Repository Medications Current Medications Medication Drug Class(es) Dates Sig (Normalized) Sig (Original) [id number] 200 actuat albuterol 0.09 mg/actuat metered dose inhaler (20 sources) beta2-Adrenergic Agonist Start: 09-29-2023 Albuterol Sulfate Active 2 INH INHALATION Every 6 hours September 29, 2023 12:00am albuterol (PROVE NTIL) 2.5 mg/0.5 mL nebulizar solution PEDIATRIC ASTHMA Inhale 2.5-5 mg as instructed as directed. Active take 2 puff(s) by in halation every four hours as needed Ventolin HFA 108 (90 Base) MCG/ACT 2 puf fs as needed Inhalation every 4 hrs Active Comment on above: Inhale 2.5-5 mg as i nstructed as directed. albuterol 0.833 mg/ml / ipratropium bromide 0.167 mg/ml inhalation solution (7 sources) Anticholinergic, beta2-Adrenergic Agonist Start: 4 take 1 mL by inhalation every six hours Ipratropium-Albute rol Active 3 ML INHALATION Q6H May 13, 2023 1:00am Ipratropium-Albu terol 0.5-2.5 (3) MG/3ML DIRECTED Inhalation Active Bilevel Positive Airway Pres sure (Bipap) (3 sources) Start: 12-03-2023 Bilevel Positi ve Airway Pressure (Bipap) Active 0 .Route December 03, 2023 9:28am As directed [facility] not using at this time Start: 09-29-2023 End: 12-03-2023 Bilevel Positive Airway Pres sure (Bipap) Discontinued 0 .ROUTE September 29, 2023 12:00am December 03, 2023 9:28am As directed [facility] JOSEFINA Start: 09-29-2023 Bilevel Positi ve Airway Pressure (Bipap) Active 0 .ROUTE September 29, 2023 12:00am As directed [facility] budesonide 0.25 mg/ml inhalation suspension (20 sources) Corticosteroid Start: 05-13-2023 End: 11-11-2023 take 0.5 mg by inhalation every twelve hours Budesonide Active 0.5 MG INHALATION Q12H 120 30 November 11, 2023 11:19am DX J44.9 COPD Start: 04-27-2019 take 1 dose by inhal ation twice daily budesonide (PULMICORT) 1 mg/2 mL nebulizer solution INHALE 1 VIAL VIA NEBULIZER TWICE A DAY 04/27/2019 Active take 1 mL by inhalat ion twice daily Pulmicort 0.5 MG/2ML 1 mL Inhalation Twice a day Active Comment on above: INHALE 1 VIAL VIA NE BULIZER TWICE A DAY cetirizine hydrochloride 10 mg oral tablet (20 sources) Histamine-1 Receptor Antagonist Start: 4 take 10 mg by mouth once daily Cetirizine Active 10 MG PO Daily September 29, 2023 12:00am Cetirizine 10 mg cap Take by mouth. Active take 1 tablet by pankaj th every twenty-four hours Cetirizine HCl 10 MG 1 tablet Orally Onc e a day Active Comment on above: Take by mouth. 12 hr guaiFENesin 600 mg extended release oral tablet (3 sources) Start: 05-17-2023 take 1 tablet by mouth twice daily, then take 1 tablet by mouth every twelve hours Guaifenesin (Mucinex) 600 mg Tablet Extended Release 12hr Active 600 MG PO Twice daily May 17, 2023 1:00am ipratropium/albuterol sulfate (DUONEB INHALATION) (20 sources) ipratropium/albu terol sulfate (DUONEB INHALATION) Inhale as instructed. Active ipratropium/albu terol sulfate (DUONEB INHALATION) Inhale as instructed. 0 Active Comment on above: Inhale as instructed . montelukast 10 mg oral tablet (20 sources) Leukotriene Receptor Antagonist Start: take 1 tablet by mouth once daily at bedtime montelukast (SINGULAIR) 10 mg tablet Take 10 mg by mouth daily at bedtime. 11 10/28/2018 Active Comment on above: Take 10 mg by mouth daily at bedtime. nystatin [id number] unt/ml oral suspension (6 sources) Polyene Antifungal Start: take 467442 [IU] by mouth three times daily Nystatin Active 307658 UNIT PO Three times daily May 17, 2023 9:48am Nystatin 284940 units/mL 1 mL to each cheek Four times a day Active oxyCODONE hydrochloride 5 mg oral tablet (1 source) Opioid Agonist Start: 11-18-2023 End: 11-21-2023 take 1 tablet by mouth every six hours as needed for pain oxyCODONE IR (ROXICODONE) 5 mg immediate release tablet Indications: Lymphadenopathy Take 1 tablet by mouth every 6 hours as needed for pain for up to 3 days. 8 tablet 0 11/18/2023 11/21/2023 Active Oxygen (4 sources) Start: 09-29-2023 Oxygen Active 0 .Route September 29, 2023 1:31pm As directed [facility] Start: 09-29-2023 End: 09-29-2023 Oxygen Discontinued 0 .Route September 29, 2023 12:00am September 29, 2023 1:32pm As directed oxygen as ordered (3 sources) oxygen as ordere d [facility] Active predniSONE 5 mg oral tablet (16 sources) Start: 12-03-2023 take 5 mg by mouth once daily Prednisone Active 5 MG PO Daily December 03, 2023 12:00am Start: 11-16-2023 End: 12-03-2023 take 4 tablets by mouth once daily, then take 2 tablets by mouth once daily, then take 1 tablet by mouth once daily, then take 0.5 tablet by mouth once daily Prednisone Discontinued 10 MG PO Daily November 16, 2023 12:00am December 03, 2023 9:27am Take 4 tabs daily x 3 days, then 2 tabs daily x 3 days, then 1 tab daily x 3 days, then 1/2 tab daily until seen by Dr. Rasmussen. Start: 10-21-2023 predniSONE 10 mg tablet pack 5 tabs per day for 3 days, 4 tabs per day for 3 ays, 3 tabs perday for 3 days, 2 tabs per day for 3 days, 1 tab a day for 3 days, 1/2 tab a day for 4 days Orally Once a day for 19 days 10/21/2023 Active Start: 05-17-2023 End: 09-29-2023 take 1 tablet by mouth three times daily, then take 1 tablet by mouth twice daily, then take 1 tablet by mouth once daily Prednisone Discontinued 10 MG PO As Directed May 17, 2023 9:52am September 29, 2023 1:21pm Take 1 tablet 3 times a day for 5 days then 1 tablet twice a day for 5 days then 1 tablet daily Start: 05-13-2023 End: 05-17-2023 take 40 mg by mouth once daily Prednisone Discontinued 40 MG PO Daily May 13, 2023 1:00am May 17, 2023 9:52am prednisone 10 mg as directed Orally as directed Active sodium chloride 9 mg/ml inhalation solution (3 sources) Sodium Chloride 0.9 % as directed Inhalation Three times a day Active theophylline 200 mg extended release oral capsule (20 sources) Methylxanthine Start: 09-29-2023 take 1 capsule by mouth once daily, then take 1 capsule by mouth every twenty-four hours Theophylline (Mi-24) 200 mg capsule,extended release 24hr Active 200 MG PO Daily September 29, 2023 12:00am Start: 05-13-2023 End: 09-29-2023 take 300 mg by mouth every twenty-four hours Theophylline Discontinued 300 MG PO Q24H May 13, 2023 1:00am September 29, 2023 1:21pm Start: 02-02-2018 take 1 capsule by mo uth once daily, then take 2 capsules by mouth every twenty-four hours Theophylline SR (MI-24) 400 mg 24 hr capsule Take 200 mg [...] Drug Class(es) Dates Sig (Normalized) Sig (Original) Budesonide / formoterol (1 source) Corticosteroid, beta2-Adrenergic Agonist End: 07-01-2021 take 2 puff(s) by inhalation twice daily budesonide-formotero l (SYMBICORT) 160-4.5 mcg/actuation inhaler Inhale 2 Puffs as instructed twice daily. 0 07/01/2021 Discontinued (Discontinued by another Health Care Provider) Comment on above: Inhale 2 Puffs as in structed twice daily. docusate sodium 50 mg / sennosides, senior care 8.6 mg oral tablet (20 sources) Start: 05-25-2018 End: 11-17-2023 take 2 tablets by mouth every twelve hours as needed senna-docusate (SENOKOT-S) 8.6-50 mg per tablet Take 2 tablets by mouth twice daily as needed. 100 tablet 1 05/25/2018 11/17/2023 Discontinued Comment on above: Take 2 tablets by mo uth twice daily as needed. iv contrast (will be provided with radiology test) (20 sources) Start: 11-27-2023 End: 11-28-2023 iv contrast (will be provided with radiology [...] CT contrast administration guidelines link. 1 Each 11/27/2023 11/28/2023 Start: 06-08-2023 iv contrast (w ill be provided with radiology test) Indications: Neoplasm of lung CT Chest W -Inject, intravenously, once for [...] CT contrast administration guidelines link. 1 Each 06/08/2023 Active Start: 06-08-2023 iv contrast (w ill be provided with radiology test) Indications: Neoplasm of lung CT Chest W -Inject, intravenously, once for [...] contrast administration guidelines link. 1 Each 0 06/08/2023 Active Start: 11-27-2022 End: 11-28-2022 iv contrast (will be provide d with [...] in the CT contrast administration guidelines link. levoFLOXacin 500 mg oral tablet (7 sources) Quinolone Antimicrobial Start: 05-17-19 End: 09-29-19 take 500 mg by mouth once daily Levofloxacin Discontinued 500 MG PO Daily 5 5 May 17, 2023 1:00am September 29, 2023 1:20pm Start: 05-13-2023 End: 05-17-2023 take 750 mg by mouth every twenty-four hours Levofloxacin Discontinued 750 MG PO Q24H May 13, 2023 1:00am May 17, 2023 9:52am Tiotropium-Olodaterol (20 sources) Anticholinergic, beta2-Adrenergic Agonist Start: 09-29-2023 End: 09-29-2023 Tiotropium-Olodaterol (Stiolto Respimat) 2.5-2.5 mcg/actuation mist Discontinued 2 INH INHALATION Daily September 29, 2023 1:21pm September 29, 2023 2:26pm Start: 09-29-2023 Tiotropium-Olo daterol (Stiolto Respimat) 2.5-2.5 mcg/actuation mist Active 2 INH INHALATION Daily September 29, 2023 1:21pm Start: 05-13-2023 End: 09-29-2023 Tiotropium-Olodaterol (Stiol to Respimat) 2.5-2.5 mcg/actuation mist Discontinued 2 PUFF INHALATION Daily May 13, 2023 1:00am September 29, 2023 1:24pm Start: 05-13-2023 Tiotropium-Olo daterol (Stiolto Respimat) 2.5-2.5 mcg/actuation mist Active 2 PUFF INHALATION Daily May 13, 2023 12:00am Start: 11-01-2018 End: 11-17-2023 STIOLTO RESPIMAT 2.5-2.5 mcg /actuation mist TAKE 2 PUFFS BY MOUTH EVERY DAY 11/01/2018 11/17/2023 Discontinued Stiolto Respimat 2.5-2.5 MCG/ACT 2 puffs Inhalation Once a day Active Comment on above: TAKE 2 PUFFS BY MOUT H EVERY DAY Problems Active Problems Problem Classification Problem Date [...] and lung] Onset: 09-09-2022 Episodic Cardiac dysrhythmias (6 sources) Tachycardia; Translations: [Tachycardia, unspecified] 05-13-2023 Episodic [...] source) Hypokalemia; Translations: [HYPOKALEMIA] Onset: 09-09-2022 Episodic Lymphadenitis (3 sources) Generalized enlarged lymph nodes; Translations: [Lymphadenopathy] Onset: 11-17-2023 10-27-2023 Episodic Mycoses (2 sources) Pneumonia in aspergillosis; Translations: [Aspergillosis, unspecified] Onset: 09-09-2022 Episodic Neoplasms of unspecified nature or uncertain behavior (4 sources) Neoplasm of lung ; Translations: [Neoplasm of unspecified behavior of respiratory system] Episodic Nutritional deficiencies (11 sources) Cachexia; Translations: [Cachexia] Onset: 05-14-2023 05-14-2023 Episodic Other aftercare (1 source) intermediate designer (current) use of systemic steroids; Translations: [RABIES INSPECTOR USE OF SYSTEMIC STEROIDS] Onset: 09-09-2022 Episodic Other aftercare (1 source) intermediate designer (current) use of inhaled steroids; Translations: [RABIES INSPECTOR USE OF INHALED STEROIDS] Onset: 09-09-2022 Episodic Other aftercare (1 source) Other rat exterminator (current) drug therapy; Translations: [OTH CARE HOME CURRENT DRUG THERAPY] Onset: 09-09-2022 Episodic Other [...] caused by tuberculosis or sexually transmitted disease) (7 sources) Pneumonia; Translations: [Pneumonia, unspecified organism] Onset: 05-14-2023 05-13-2023 Episodic Residual codes; unclassified (1 source) Obstructive sleep apnea syndrome; Translations: [Obstructive sleep apnea (adult) (pediatric)] 12-03-2023 Chronic Residual codes; unclassified (1 source) Obstructive sleep apnea (adult) (pediatric); Translations: [Obstructive sleep apnea (adult)(pediatric)] 12-03-2023 Chronic Residual codes; unclassified (1 source) Past history of procedure; Translations: [Other specified postprocedural states] 12-03-2023 Episodic Respiratory failure; insufficiency; arrest (adult) (20 sources) Chronic respiratory failure with hypoxia; Translations: [Chronic hypoxemic respiratory failure] Onset: 03-02-2018 03-02-2018 Chronic Respiratory failure; insufficiency; arrest (adult) (6 sources) Acute respiratory failure with hypoxia; Translations: [Acute respiratory failure] Onset: 09-09-2022 05-14-2023 Episodic Screening and history of mental health and substance abuse codes (7 sources) Personal history of nicotine dependence; Translations: [Ex-smoker] Onset: 09-09-2022 11-17-2023 Episodic Secondary malignancies (5 sources) Secondary malignant neoplasm of lymph nodes of neck; Translations: [Secondary and unspecified malignant neoplasm of lymph nodes of head, face and neck] Onset: 12-07-2023 09-21-2023 Chronic Secondary malignancies (2 sources) Secondary and unspecified malignant neoplasm of lymph nodes of head, face and neck; Translations: [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 Author Type: Anesthesiologist Type: Anesthesia Postprocedure Evaluation Filed: 11/19/2023 07:55 Note Text: POST ANESTHESIA EVALUATION NOTE : 1960 Procedure Summary Date: 11/18/23 Room / Location: [address] Anesthesia Start: 1535 Anesthesia Stop: 174 Procedure: BIOPSY OR EXCISION LYMPH NODE(S) OPEN, DEEP CERVICAL (Left: Neck) Diagnosis: Non-small cell cancer of left lung (HCC) Lymphadenopathy (Non-small cell cancer of left lung (HCC) [C34.92]) (Lymphadenopathy [R59.1]) Surgeons: Teo Craft MD Responsible Provider: Doron Florentino MD Anesthesia Type: general ASA Status: 3 Anesthesia Type: general Airway Type: ETT Last Vitals Vitals Value Taken Time BP 123/64 11/18/23 1900 Temp 36.1 ?C (97 ?F) 11/18/23 1830 Pulse 88 11/18/23 1900 Resp 16 11/18/23 1900 SpO2 100 % 11/18/23 1900 Post Anesthesia Patient Status Patient Evaluation: bedside. Anticipated Disposition: phase 2 then home. Neurological Status: aware and responsive. Pulmonary Status: breathing comfortably on room air Airway Control: returned to baseline unsupported. Cardiovascular Status: stable. Pain Management: clinically adequate Postoperative Hydration: acceptable. Intraoperative Events: no significant anesthesia events Post Operative Nausea/Vomiting Status: no significant post operative nausea or vomiting Recommendation: continue current plan of care. Anesthesia Observations No Documentation SIGNATURE: Doron Florentino MD PATIENT NAME: CINTHIA Guerrero DATE: November 19, 2023 TIME: 7:55 AM [facility]: [phone] [facility] 11-19-2023 [facility] Telephone (HNQ) LIZETHCINTHIA ONTIVEROS ([id number]) 1960 F Date Time Provider Department 11/19/23 TEO CRAFT During your visit today, we recorded the following information about you: Ananya Acuna 11/19/2023 1:51 PM Signed Person Calling:Omaira Reason for Call: requesting a work excuse for her daughter Kendal Ruiz fir 11/17 AND 11/18. Pt Phone #: [phone] Pharmacy Name and # : Pt last seen: Visit date not found Ananya HEARD Allergies As of Date: 11/19/2023 (No Known Allergies) Date Reviewed: 11/18/2023 Reviewed by: Khushboo Patel, RN - Fully Assessed Reason for Visit: Patient Update [1234] Prescriptions as of 11/19/2023 - oxyCODONE IR (ROXICODONE) 5 mg immediate release tablet Take 1 tablet by mouth every 6 hours as needed for pain for up to 3 days. - predniSONE 10 mg tablet pack 5 tabs per day for 3 days, 4 tabs per day for 3 ays, 3 tabs perday for 3 days, 2 tabs per day for 3 days, 1 tab a day for 3 days, 1/2 tab a day for 4 days Orally Once a day for 19 days - iv contrast (will be provided with [...] VIAL VIA NEBULIZER TWICE A DAY - montelukast (SINGULAIR) 10 mg tablet Take 10 mg by mouth daily at bedtime. - ipratropium/albuterol sulfate (DUONEB INHALATION) Inhale as instructed. - albuterol (PROVENTIL) 2.5 mg/0.5 mL nebulizar solution PEDIATRIC ASTHMA Inhale 2.5-5 mg as instructed as directed. - Cetirizine 10 mg cap Take by mouth. - Theophylline SR (MI-24) 400 mg 24 hr capsule Take 200 mg by mouth once daily. Problem List As Of Date 11/19/2023 Noted Resolved Lung nodule, solitary [R91.1] 03/02/2018 Centrilobular emphysema (HCC) [J43.2] 03/02/2018 Chronic respiratory failure with hypoxia (HCC) *03/02/2018 Non-small cell cancer of left lung (HCC) [C34.9*04/07/2018 COPD, severe (HCC) [J44.9] 11/17/2023 Supplemental oxygen dependent [Z99.81] 11/17/2023 Former smoker [Z87.891] 11/17/2023 Letter Text Encounter Status:Closed by ANANYA ACUNA on 11/19/23 Normal [facility] ANES PRE-OPon 11-18-2023 ANES PRE-OP HNO ID: [id number] Author: DORON FLORENTINO MD Service: ? Author Type: Anesthesiologist Type: Anesthesia Preprocedure Evaluation Filed: 11/18/2023 15:44 Note Text: ANESTHESIOLOGY DAY OF SURGERY NOTE : 1960 Procedure Information Anesthesia Start Date/Time: 11/18/23 1535 Procedure: BIOPSY OR EXCISION LYMPH NODE(S) OPEN, DEEP CERVICAL (Left: Neck) Location: MAIN OR18 [facility] Surgeons: Teo Craft MD Estimated body mass index is 16.01 kg/m? as calculated from the following: Height as of this encounter: 162.6 cm (5' 4 ). Weight as of this encounter: 42.3 kg (93 lb 4.1 oz). Most recent hematocrit and potassium results: Hematocrit 40.3 11/17/2023 Potassium 3.9 11/17/2023 Relevant Problems No relevant active problems I - PHYSICAL EVALUATION AIRWAY Patient intubated: No. Tracheostomy tube not present Mallampati: II. TM distance: >3 FB. Neck ROM: full ROM without neurological symptoms. Mouth opening: adequate. Short neck: no. Thick neck: no DENTAL Dental findings: teeth intact. II - ANESTHESIA PLAN ASA Score: 3 Anesthetic Plan: general Airway type: ETT NPO Status: adequate Beta Brittany Monitoring Plan Monitoring plan: standard ASA. Post Procedure Analgesic Plan Postoperative analgesic plan: parenteral or oral opioids. Informed Consent Anesthetic risks, benefits, alternatives, personnel and consent discussed: yes. Patient / Responsible Green Party agrees to proceed: yes Patient / Surrogate agrees to blood products: Yes Potential Anesthesia issues that may suggest increased risk of complications or contraindication to planned procedure: none. Vitals Value Taken Time BP 158/80 11/18/23 1527 Pulse 113 11/18/23 1527 Resp 22 11/18/23 1527 Temp 36.6 ?C (97.9 ?F) 11/18/23 1527 SpO2 100 % 11/18/23 1527 Facility-Administered Medications as of 11/18/2023 Medication Dose Route Frequency - lidocaine (PF) 10 mg/mL (1 %) 1-2 mg injection (XYLOCAINE) 0.1-0.2 mL INTRADERMAL PRN Or - lidocaine 1% 0.25 mL subcutaneous j-tip syringe (XYLOCAINE) 0.25 mL SUBCUTANEOUS PRN - lactated ringers iv infusion 5-30 mL/hr INTRAVENOUS CONTINUOUS - NaCl 0.9% iv flush bag 20 mL INTRAVENOUS PRN - ceFAZolin iv piggyback 2 g in D5W (iso-osmotic) 100 mL (ANCEF) 2 g INTRAVENOUS Pre-Op Once Outpatient Medications as of 11/18/2023 Medication Sig - predniSONE 10 mg tablet pack 5 tabs per day for 3 days, 4 tabs per day for 3 ays, 3 tabs perday for 3 days, 2 tabs per day for 3 days, 1 tab a day for 3 days, 1/2 tab a day for 4 days Orally Once a day for 19 days - budesonide (PULMICORT) 1 mg/2 mL nebulizer solution INHALE 1 VIAL VIA NEBULIZER TWICE A DAY - montelukast (SINGULAIR) 10 mg tablet Take 10 mg by mouth daily at bedtime. - ipratropium/albuterol sulfate (DUONEB INHALATION) Inhale as instructed. - Cetirizine 10 mg cap Take by mouth. - Theophylline SR (MI-24) 400 mg 24 hr capsule Take 200 mg by mouth once daily. - iv contrast (will be provided with [...] the CT contrast administration guidelines link. - albuterol (PROVENTIL) 2.5 mg/0.5 mL nebulizar solution PEDIATRIC ASTHMA Inhale 2.5-5 mg as instructed as directed. I have interviewed and examined the patient. I have reviewed the medical record and/or the pre-anesthesia evaluation, pertinent labs, and test results. This contains updated information obtained within 48 hours of Surgery/Procedure. SIGNATURE: Doron Florentino MD PATIENT NAME: CINTHIA Guerrero DATE: November 18, 2023 TIME: 3:43 PM CSN: [id number] Normal [facility] ECG COMPLETEon 11-18-2023 Atrial Rate 115 BPM [facility] Calculated P [place] 94 degrees [facility] Calculated R [place] 84 degrees [facility] Calculated T [place] 88 degrees [facility] P-R Interval 158 ms [facility] QRS Duration 74 ms [facility] QT Interval 312 ms [facility] QTC Calculation ([place]azett) 431 ms [facility] Ventricular Rate 115 BPM [facility] SINUS TACHYCARDIA RIGHT ATRIAL ENLARGEMENT MINIMAL VOLTAGE CRITERIA FOR LVH, MAY BE NORMAL VARIANT BORDERLINE ECG NO PREVIOUS ECGS AVAILABLE Confirmed by MD BLAND GREGORY () on 11/18/2023 7:35:32 AM [facility] NAME : CINTHIA GUERRERO PID : [id number] : 1960 Gender : Female Race : ORD : [id number] Procedure Date : Nov 17 2023 14:38:04 Edit Date : Nov 18 2023 07:35:34 Diagnosis: SINUS TACHYCARDIA RIGHT ATRIAL ENLARGEMENT MINIMAL VOLTAGE CRITERIA FOR LVH, MAY BE NORMAL VARIANT BORDERLINE ECG NO PREVIOUS ECGS AVAILABLE Confirmed by MD BLAND GREGORY () on 11/18/2023 7:35:32 AM Test Reason : [facility] Location : 10 : PAT/ Overread By : MD BLAND GREGORY Edited By : MD BLAND GREGORY Referred By : TEO CRAFT Acquired by : PERLA JUNIOR CPD [facility] OPERATIVE NOon 11-18-2023 OPERATIVE NO HNO ID: [id number] Author: TEO CRAFT MD Service: Otolaryngology Author Type: Physician Type: Operative Report Filed: 11/23/2023 12:14 Note Text: [facility] [place] [phone] [facility] C O N F I D E N T I A L I N F O R M A T I O N STANDARD [facility] [place], [facility] BY [facility] DOCUMENT OPERATIVE REPORT Otolaryngology Head and Neck Surgery Name: CINTHIA Guerrero [facility] #: [id number] Date: 11/18/2023 Date of : 1960 Pre Operative Diagnoses: Non-small cell cancer of left lung (HCC) [C34.92] Lymphadenopathy [R59.1] Post Operative Diagnoses: Same as pre-op Procedures: Left neck excisional biopsy of supra clavicular lesions - deep cervical lymph node biopsy Surgeon(s) and Role: * Teo Craft MD - Primary * Wes Voss MD - Resident - Assisting No Additional Staff Anesthesia: General Incision/Procedure Start Time: 4:12 PM Incision Close/Procedure End Time: 5:19 PM Findings: Left posterior supraclavicular lymph node and anterior supraclavicular external jugular nodes were excised and sent for pathology. The spinal accessory nerve was not encountered. COMPLICATIONS: None Procedure Indications: CINTHIA Guerrero is an 63 year old female who presented to the clinic with history of NSCLC and PET avid lymph nodes in the left neck of unclear significance. This above procedure was described to the patient including risks, benefits, alternatives, and personnel and informed consent was obtained. Description: The patient was brought to the operating room and placed in the supine position. After verification of informed consent and huddle were performed, general endotracheal anesthesia was induced. A surgical timeout was performed to confirm correct patient, correct site, and fire risk. Ultrasound was used to identify two lymph nodes in the left neck which corresponded with PET imaging and were palpable on exam. Two separate horizontal incisions over these lymph nodes were marked and injected with 1% lidocaine with 1:100,000 epinephrine. The patient was prepped and draped in the standard sterile fashion. Starting with the posterior left lymph node, an approximately 3 cm incision was made with fifteen blade. Dissection was performed using fine tonsil forceps and bipolar cautery until the previously identified lymph node was found, taking care not to injure any nerves during dissection. The lymph node was then freed from the surrounding tissue and sent for permanent specimen. An identical procedure was then performed along the anterior incision and dissection proceeded on the back of the sternocleidomastoid muscle. The external jugular vein was identified and preserved and a node just anterior to it just deep and posterior to the clavicle was dissected out from the surrounding fat and and sent for permanent specimen. The wound beds were irrigated and hemostasis confirmed using bipolar cautery. A 3 layer closure was then performed, the deep/platysmal layer was reapproximated using 3-0 Vicryl, 4-0 Monocryl was used for deep dermal closure, and a running 5-0 fastgut suture was used for skin closure of both incisions. The patient was turned back over to Anesthesia for emergence. The patient tolerated the procedure without difficulty and was transported to the PACU for recovery. Specimens: ID Type Source Tests Collected by Time Destination A : Left posterior supraclavicular lymph node Tissue Lymph Node, Biopsy SURGICAL PATHOLOGY Teo Craft MD 11/18/2023 4:25 PM B : Left supraclavicular external jugular node Tissue Lymph Node, Biopsy SURGICAL PATHOLOGY Teo Craft MD 11/18/2023 4:38 PM Estimated Blood Loss: 5 mLs Implants: * No implants in log * Drains: None Counts: Correct Attestation: Teo Craft MD was scrubbed for the entire procedure and performed it with assistance for CINTHIA Voss MD for the service of Teo Craft MD Brandon Prendes, MD Normal [facility] SURGICAL PATHOLOGYon 024 CASE REPORT Normal [facility] Comment on above: Order Comment: Speci men Type: TISSUE SPECIMENOrdering Facility: [facility] Address: [address] [place] [address] Result Comment: Surg [facility] Pathology Report Case: [id number] Authorizing Provider: Teo Craft MD Collected: 11/18/2023 04:25 PM Ordering Location: Admitting Received: 11/18/2023 05:12 PM Pathologist: Stephane Elmore MD, PhD Specimens: A) - Lymph Node, Biopsy, Left posterior supraclavicular lymph node B) - Lymph Node, Biopsy, Left supraclavicular external jugular node Performed By: #### S ####[facility] LABCLIA [id number] [address] LABORATORYCLIA [id number] [address] CLINICAL HISTORY Normal [facility] Comment on above: Order Comment: Speci men Type: TISSUE SPECIMENOrdering Facility: [facility] Address: [address] [place] [address] Result Comment: Pre- op diagnosis: Non-small cell cancer of left lung (HCC) [C34.92] Lymphadenopathy [R59.1] Performed By: #### S ####[facility] LABCLIA [id number] [address] LABORATORYCLIA [id number] [address] DIAGNOSIS COMMENT Normal [facility] Comment on above: Order Comment: Speci deepthi Type: TISSUE SPECIMENOrdering Facility: [facility] Address: [address] [place] [address] Result Comment: The morphologic findings described below show benign lymph nodes with follicular hyperplasia. Granulomatous diseases not identified. GMS stains are negative for microorganisms. There is no evidence of a lymphoproliferative disorder, metastatic carcinoma or other malignancy. Laboratory Developed Test (LDT) Disclaimer: Performance characteristics of immunohistochemical, immunofluorescent and chromogenic in-situ hybridization tests have been determined by the performing laboratory within [facility]???s Adarsh Yang Pathology and Laboratory Medicine Department ([facility], [facility], [facility], [facility], [facility], [facility], or [facility]) in a manner consistent with CLIA requirements. One or more of these tests have not been cleared or approved by the FDA. [facility] is regulated under CLIA as qualified to perform high-complexity testing. These tests are used for clinical purposes. They should not be regarded as investigational or for research. Positive and negative controls stain appropriately. Performed By: #### S ####[facility] LABCLIA [id number] [address] LABORATORYCLIA [id number] [address] FINAL DIAGNOSIS Normal [facility] Comment on above: Order Comment: Speci men Type: TISSUE SPECIMENOrdering Facility: [facility] Address: [address] [place] [address] Result Comment: Lymp h nodes, left posterior supraclavicular and left supraclavicular external jugular, excisional biopsies (A-B): - Benign lymph nodes with follicular hyperplasia. - GMS stains negative for microorganisms. - No evidence of malignancy. - See comment. [facility] 11/27/2023 Performed By: #### S ####[facility] LABCLIA [id number] [address] LABORATORYCLIA [id number] [address] FINAL PERFORMING LAB Normal [facility] Comment on above: Order Comment: Speci men Type: TISSUE SPECIMENOrdering Facility: [facility] Address: [address] [place] [address] Result Comment: Diag nostic interpretation performed at [facility], [address] [place] [address] CLIA# [id number] Event Marketing Specialist: Axel Romano M.D. Performed By: #### S ####[facility] LABCLIA [id number] [address] [id number] [address] GROSS DESCRIPTION Normal [facility] Comment on above: Order Comment: Speci men Type: TISSUE SPECIMENOrdering Facility: [facility] Address: [address] [place] [address] Result Comment: A. L ymph Node, Biopsy Received in formalin, labeled left posterior supraclavicular lymph node is a carcamo-garcia, ovoid portion of tissue, consistent with possible lymph node, measuring 1.5 x 1.5 x 0.7 cm. The specimen is sectioned and entirely submitted in cassettes A1-A2. B. Lymph Node, Biopsy Received in formalin, labeled left supraclavicular external jugular node is an unoriented portion of lobulated adipose tissue, measuring 2.3 x 2.0 x 1.0 cm. Palpation and dissection reveals 7 possible lymph nodes, ranging from 0.4 cm to 1.3 cm in greatest dimension. The possible lymph nodes are entirely submitted, as follows: B1: 4 intact possible lymph nodes B2: 3 intact possible lymph nodes AKA November 19, 2023 12:08 PM Gross examination performed at [facility], [address] [place] [address] Performed By: #### S ####[facility] [id number] [address] [id number] [address] MICROSCOPIC DESCRIPTION The histologic sections of part A and B each show lymph nodes with preserved architecture and patent sinuses. There are frequent germinal centers which appear polarized with tingible body macrophages. GMS stains performed on blocks A1 and A2 are negative for microorganisms. Immunohistochemical stains were performed on block A2 to further characterize the lymphoid elements. CD3 and CD20 stains show an intact immunoarchitecture. The germinal centers are positive for BCL6 and negative for BCL2. A cyclin D1 stain shows no lymphoid staining. Normal [facility] Comment on above: Order Comment: Speci men Type: TISSUE SPECIMENOrdering Facility: [facility] Address: [address] [place] [address] Performed By: #### S ####[facility] LABCLIA [id number] [facility]ERS[facility] AL[address] [place] [facility] LABORATORYCLIA [id number] [address] [place] Basic metabolic 2000 panelon 11-17-2023 Anion gap [Moles/Vol] 8 mmol/L 8 - 15 mmol/L [facility] Calcium [Mass/Vol] 9.7 mg/dL 8.5 - 10. 2 mg/dL [facility] Chloride [Moles/Vol] 95 mmol/L Low 98 - 10 7 mmol/L [facility] CO2 [Moles/Vol] 36 mmol/L High 22 - 30 mmol/L [facility] Creatinine [Mass/Vol] 0.37 mg/dL Low 0.58 - 0.96 mg/dL [facility] GFR/1.73 sq M.predicted among non-blacks MDRD (S/P/Bld) [Vol rate/Area] 114 mL/min/{1.73_m2} - PINF [facility] Comment on above: Estimated Glomerular Filtration Rate (eGFR) is calculated using the 2020 CKD-EPI creatinine equation. This equation utilizes serum creatinine, sex, and age as parameters. The creatinine assay has traceable calibration to isotope dilution-mass spectrometry. Refer to KDIGO guidelines for clinical interpretation. In patients with unstable renal function, e.g. those with acute kidney injury, the eGFR may not accurately reflect actual GFR. Glucose [Mass/Vol] 200 mg/dL High 74 - 99 mg/dL [facility] Comment on above: The [place] Diabete s Association (ADA) provides guidance for cutoff values [...] Standards of Medical Care in Diabetes 2016, [employer]. Diabetes Care. 2016.39(Suppl 1). Interpretation and review of laboratory results Abnormal [facility] Potassium [Moles/Vol] 3.9 mmol/L 3.7 - 5.1 mmol/L [facility] Sodium [Moles/Vol] 139 mmol/L 136 - 144 mmol/L [facility] Urea nitrogen [Mass/Vol] 8 mg/dL 7 - 21 mg/dL [facility] Anion gap [Moles/Vol] 8 mmol/L Normal 8-15 [facility] Comment on above: Order Comment: Renuka lacey Type: BLOOD SPECIMEN [facility]: [facility] Address: [address] [place] [address] Performed By: #### 2 4321-2 #### [facility] CLIA [id number] [address] [place] [address] [place] Calcium [Mass/Vol] 9.7 mg/dL Normal 8.5-10.2 [facility] Comment on above: Order Comment: Renuka lacey Type: BLOOD SPECIMEN [facility] Facility: [facility] Address: [address] [place] [address] Performed By: #### 2 4321-2 #### [facility] CLIA [id number] [address] [place] [address] [place] Chloride [Moles/Vol] 95 mmol/L Low 98-107 [facility] Comment on above: Order Comment: Renuka lacey Type: BLOOD SPECIMEN [facility]: [facility] Address: [address] [place] [address] Performed By: #### 2 4321-2 #### [facility] CLIA [id number] [address] [place] [address] [place] CO2 [Moles/Vol] 36 mmol/L High 22-30 [facility] Comment on above: Order Comment: Shamikai men Type: BLOOD SPECIMEN [facility]: [facility] Address: [address] [place] [address] Performed By: #### 2 4321-2 #### [facility] CLIA [id number] [address] [place] [address] [place] Creatinine [Mass/Vol] 0.37 mg/dL Low 0.58-0.96 [facility] Comment on above: Order Comment: Renuka lacey Type: BLOOD SPECIMEN [facility]: [facility] Address: [address] [place] [address] Performed By: #### 2 4321-2 #### [facility] CLIA [id number] [address] [place] [address] [place] Creatinine and Glomerular filtration rate.predicted panel (S/P/Bld) 114 mL/min/1.73m??? Normal >=60 [facility] Comment on above: Order Comment: Renuka lacey Type: BLOOD SPECIMEN [facility]ing [facility]: [facility] Address: [address] [place] [address] Result Comment: Angelique mated Glomerular Filtration Rate [...] actual GFR. Performed By: #### 2 4321-2 #### [facility] CLIA [id number] [address] [place] [address] [place] Glucose [Mass/Vol] 200 mg/dL High 74-99 [facility] Comment on above: Order Comment: Renuka lacey Type: BLOOD SPECIMEN [facility]: [facility] Address: [address] [place] [address] Result Comment: The [place] Diabetes Association (ADA) provides guidance for cutoff [...] Standards of Medical Care in Diabetes 2016, [place] [employer]. Diabetes Care. 2016.39(Suppl 1). Performed By: #### 2 4321-2 #### [facility] CLIA [id number] [address] STATES [facility] Potassium [Moles/Vol] 3.9 mmol/L Normal 3.7-5.1 [facility] Comment on above: Order Comment: Speci men Type: BLOOD SPECIMEN [facility]ing [facility]: [facility] Address: [address] [place] [address] Performed By: #### 2 4321-2 #### [facility] CLIA [id number] [address] STATES OF [facility] Sodium [Moles/Vol] 139 mmol/L Normal 136-144 [facility] Comment on above: Order Comment: Speci men Type: BLOOD SPECIMEN [facility]ing [facility]: [facility] Address: [address] [place] [address] Performed By: #### 2 4321-2 #### [facility] CLIA [id number] [address] [place] [facility] Urea nitrogen [Mass/Vol] 8 mg/dL Normal 7-21 [facility] Comment on above: Order Comment: Speci men Type: BLOOD SPECIMEN [facility]ing [facility]: [facility] Address: [address] [place] [address] Performed By: #### 2 4321-2 #### [facility] CLIA [id number] [address] [place] CBC W Auto Differential pane l (Bld)on 11-17-2023 Basophils (Bld) [#/Vol] NINF [facility] Basophils/100 WBC (Bld) 0.2 % [facility] Differential cell count method Nom (Bld) Auto [facility] Eosinophils (Bld) [#/Vol] [facility] Eosinophils/100 WBC (Bld) 0.4 % [facility] Erythrocyte distribution width (RBC) [Ratio] 12.8 % 11.5 - 15.0 % [facility] Hematocrit (Bld) [Volume fraction] 40.3 % 36.0 - 46.0 % [facility] Hemoglobin (Bld) [Mass/Vol] 12.4 g/dL 11.5 - 15.5 g/dL [facility] Immature granulocytes (Bld) [#/Vol] NINF [facility] Immature granulocytes/100 WBC (Bld) 0.2 % [facility] Interpretation and review of laboratory results Abnormal [facility] Lymphocytes (Bld) [#/Vol] 0.31 10*3/uL Low [facility] Lymphocytes/100 WBC (Bld) 6.0 % [facility] MCH (RBC) [Entitic mass] 26.4 pg 26.0 - 34.0 pg [facility] MCHC (RBC) [Mass/Vol] 30.8 g/dL 30.5 - 36.0 g/dL [facility] MCV (RBC) [Entitic vol] 85.9 fL 80.0 - 100.0 fL [facility] Monocytes (Bld) [#/Vol] 0.06 10*3/uL [facility] Monocytes/100 WBC (Bld) 1.2 % [facility] Neutrophils (Bld) [#/Vol] 4.76 10*3/uL [facility] Neutrophils/100 WBC (Bld) 92.0 % [facility] Nucleated RBC (Bld) [#/Vol] [facility] Nucleated RBC/100 WBC (Bld) [Ratio] 0.0 % /100 WBC [facility] Platelet mean volume (Bld) [Entitic vol] 9.0 fL 9.0 - 12.7 fL [facility] Platelets (Bld) [#/Vol] 286 10*3/uL [facility] RBC (Bld) [#/Vol] 4.69 10*6/uL 3.90 - 5.2 0 m/uL [facility] WBC (Bld) [#/Vol] 5.17 10*3/uL [facility] Basophils (Bld) [#/Vol] 10*3/uL Normal <0.11 [facility] Comment on above: Order Comment: Speci men Type: BLOOD SPECIMEN [facility]ing [facility]: [facility] Address: [address] [place] [address] Performed By: #### 5 7021-8 #### [facility] CLIA [id number] [address] [place] [id number] [place] [address] [place] Basophils/100 WBC (Bld) 0.2 % Normal [facility] Comment on above: Order Comment: Speci men Type: BLOOD SPECIMEN [facility]ing [facility]: [facility] Address: [address] [place] [address] Performed By: #### 5 7021-8 #### [facility] CLIA [id number] [address] [place] Differential cell count method Nom (Bld) Auto Normal [facility] Comment on above: Order Comment: Speci men Type: BLOOD SPECIMEN [facility]: [facility] Address: [address] [place] [address] Performed By: #### 5 7021-8 #### [facility] CLIA [id number] [address] [place] [address] [place] Eosinophils (Bld) [#/Vol] 10*3/uL Normal <0.46 [facility] Comment on above: Order Comment: Speci men Type: BLOOD SPECIMEN [facility]ing [facility]: [facility] Address: [address] [place] [address] Performed By: #### 5 7021-8 #### [facility] CLIA [id number] [address] [place] [address] [place] Eosinophils/100 WBC (Bld) 0.4 % Normal [facility] Comment on above: Order Comment: Speci men Type: BLOOD SPECIMEN [facility]: [facility] Address: [address] [place] [address] Performed By: #### 5 7021-8 #### [facility] CLIA [id number] [address] [place] Erythrocyte distribution width (RBC) [Ratio] 12.8 % Normal 11.5-15.0 [facility] Comment on above: Order Comment: Speci men Type: BLOOD SPECIMEN [facility]ing [facility]: [facility] Address: [address] [place] [address] Performed By: #### 5 7021-8 #### [facility] CLIA [id number] [address] [place] Hematocrit (Bld) [Volume fraction] 40.3 % Normal 36.0-46.0 [facility] Comment on above: Order Comment: Speci men Type: BLOOD SPECIMEN [facility]ing [facility]: [facility] Address: [address] [place] [address] Performed By: #### 5 7021-8 #### [facility] CLIA [id number] [address] [place] [address] [place] Hemoglobin (Bld) [Mass/Vol] 12.4 g/dL Normal 11.5-15.5 [facility] Comment on above: Order Comment: Speci men Type: BLOOD SPECIMEN [facility]ing Facility: [facility] Address: [address] [place] [address] Performed By: #### 5 7021-8 #### [facility] CLIA [id number] [address] [place] [address] [place] Immature granulocytes (Bld) [#/Vol] 10*3/uL Normal <0.10 [facility] Comment on above: Order Comment: Speci men Type: BLOOD SPECIMEN [facility]ing [facility]: [facility] Address: [address] [place] [address] Performed By: #### 5 7021-8 #### [facility] CLIA [id number] [address] [place] [address] [place] Immature granulocytes/100 WBC (Bld) 0.2 % Normal [facility] Comment on above: Order Comment: Speci men Type: BLOOD SPECIMEN [facility]ing [facility]: [facility] Address: [address] [place] [address] Performed By: #### 5 7021-8 #### [facility] CLIA [id number] [address] [place] [address] [place] Lymphocytes (Bld) [#/Vol] 0.31 10*3/uL Low 1.00-4.00 [facility] Comment on above: Order Comment: Speci men Type: BLOOD SPECIMEN [facility]ing [facility]: [facility] Address: [address] [place] [address] Performed By: #### 5 7021-8 #### [facility] CLIA [id number] [address] [place] [address] [facility] [place] Lymphocytes/100 WBC (Bld) 6.0 % Normal [facility] Comment on above: Order Comment: Speci men Type: BLOOD SPECIMEN [facility]ing [facility]: [facility] Address: [address] [place] [address] Performed By: #### 5 7021-8 #### [facility] CLIA [id number] [address] MCH (RBC) [Entitic mass] 26.4 pg Normal 26.0-34.0 [facility] Comment on above: Order Comment: Speci men Type: BLOOD SPECIMEN [facility]ing [facility]: [facility] Address: [address] [place] [address] Performed By: #### 5 7021-8 #### [facility] CLIA [id number] [address] OF [facility] MCHC (RBC) [Mass/Vol] 30.8 g/dL Normal 30.5-36.0 [facility] Comment on above: Order Comment: Speci men Type: BLOOD SPECIMEN [facility]ing Facility: [facility] Address: [address] [place] [address] Performed By: #### 5 7021-8 #### [facility] CLIA [id number] [address] MCV (RBC) [Entitic vol] 85.9 fL Normal 80.0-100.0 [facility] Comment on above: Order Comment: Speci men Type: BLOOD SPECIMEN [facility]ing [facility]: [facility] Address: [address] [place] [address] Performed By: #### 5 7021-8 #### [facility] CLIA [id number] [address] Monocytes (Bld) [#/Vol] 0.06 10*3/uL Normal <0.87 [facility] Comment on above: Order Comment: Speci men Type: BLOOD SPECIMEN [facility]ing Facility: [facility] Address: [address] [place] [address] Performed By: #### 5 7021-8 #### [facility] CLIA [id number] [address] Monocytes/100 WBC (Bld) 1.2 % Normal [facility] Comment on above: Order Comment: Speci men Type: BLOOD SPECIMEN [facility]ing [facility]: [facility] Address: [address] [place] [address] Performed By: #### 5 7021-8 #### [facility] CLIA [id number] [address] [place] Neutrophils (Bld) [#/Vol] 4.76 10*3/uL Normal 1.45-7.50 [facility] Comment on above: Order Comment: Speci men Type: BLOOD SPECIMEN [facility]ing [facility]: [facility] Address: [address] [place] [address] Performed By: #### 5 7021-8 #### [facility] CLIA [id number] [address] STATES [facility] Neutrophils/100 WBC (Bld) 92.0 % Normal [facility] Comment on above: Order Comment: Speci men Type: BLOOD SPECIMEN Ordering Facility: [facility] Address: [address] [place] [address] Performed By: #### 5 7021-8 #### [facility] CLIA [id number] [address] Nucleated RBC (Bld) [#/Vol] 10*3/uL Normal <0.01 [facility] Comment on above: Order Comment: Speci men Type: BLOOD SPECIMEN Ordering Facility: [facility] Address: [address] [place] [address] Performed By: #### 5 7021-8 #### [facility] CLIA [id number] [address] Nucleated RBC/100 WBC (Bld) [Ratio] 0.0 /100 WBC Normal [facility] Comment on above: Order Comment: Speci men Type: BLOOD SPECIMEN Ordering Facility: [facility] Address: [address] [place] [address] Performed By: #### 5 7021-8 #### [facility] CLIA [id number] [address] Platelet mean volume (Bld) [Entitic vol] 9.0 fL Normal 9.0-12.7 [facility] Comment on above: Order Comment: Speci men Type: BLOOD SPECIMEN Ordering Facility: [facility] Address: [address] [id number] Performed By: #### 5 7021-8 #### [facility] CLIA [id number] [address] [place] Platelets (Bld) [#/Vol] 286 10*3/uL Normal 150-400 [facility] Comment on above: Order Comment: Speci men Type: BLOOD SPECIMEN Ordering Facility: [facility] Address: [address] [place] [address] Performed By: #### 5 7021-8 #### [facility] CLIA [id number] [address] [place] RBC (Bld) [#/Vol] 4.69 10*6/uL Normal 3.90-5.20 [facility] Comment on above: Order Comment: Speci men Type: BLOOD SPECIMEN Ordering Facility: [facility] Address: [address] [place] [address] Performed By: #### 5 7021-8 #### [facility] CLIA [id number] [address] [place] WBC (Bld) [#/Vol] 5.17 10*3/uL Normal 3.70-11.00 [facility] Comment on above: Order Comment: Speci men Type: BLOOD SPECIMEN Ordering Facility: [facility] Address: [address] [place] [address] Performed By: #### 5 7021-8 #### [facility] CLIA [id number] [address] [place] ECG COMPLETEon 11-17-2023 ECG COMPLETE Ventricular Rate : 1 15 BPM Atrial Rate : 115 BPM P-R Interval : 158 ms QRS Duration : 74 ms Q-T Interval : 312 ms QTC Calculation(Bazett) : 431 ms Calculated P [place] : 94 degrees Calculated R [place] : 84 degrees Calculated T [place] : 88 degrees SINUS TACHYCARDIA RIGHT ATRIAL ENLARGEMENT MINIMAL VOLTAGE CRITERIA FOR LVH, MAY BE NORMAL VARIANT BORDERLINE ECG NO PREVIOUS ECGS AVAILABLE Confirmed by MD BLAND GREGORY () on 11/18/2023 7:35:32 AM NAME : CINTHIA GUERRERO PID : [id number] : 1960 Gender : Female Race : ORD : [id number] Procedure Date : Nov 17 2023 14:38:04 Edit Date : Nov 18 2023 07:35:34 Diagnosis: SINUS TACHYCARDIA RIGHT ATRIAL ENLARGEMENT MINIMAL VOLTAGE CRITERIA FOR LVH, MAY BE NORMAL VARIANT BORDERLINE ECG NO PREVIOUS ECGS AVAILABLE Confirmed by MD BLAND GREGORY () on 11/18/2023 7:35:32 AM Test Reason : [facility] Location : : [facility] Overread By : MD BLAND GREGORY Edited By : MD BLAND GREGORY Referred By : TEO CRAFT Acquired by : SANDI [facility] HISTORY PHYSICALon HISTORY PHYSICAL HNO ID: [id number] Author: BRIE KAUR PA-C Service: ? Author Type: Physician Hosiery Looper Type: H&P Filed: 11/17/2023 15:34 Note Text: [facility] HISTORY AND PHYSICAL EXAMINATION SERVICE DATE: 11/17/2023 SERVICE TIME: 3:00 PM PRIMARY CARE PHYSICIAN: Adithya Kenyon MD Assessment Patient has the following medical conditions which may affect geovanna-operative course: Non-small cell cancer of left lung (HCC) Assessment: 2019, treated with SBRT. COPD, severe (HCC) Assessment: Compliant on Singulair, theophylline, Pulmicort BID and DuoNeb 4x per day. On continuous supplemental oxygen, 2L via NC. Follows with outside pulm at [facility], Dr. Valery DAVIS in October per pt. Diminished breath sounds bilaterally throughout, no wheezing. SpO2 95% on 2L O2. 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 Pt reports she called transit department clerk's office because she felt like her breathing was bad , pt unable to elaborate as to what she meant by her breathing being bad . Pt stated that she feels like the hot, humid weather is making her breathing problems progress . Denies increased SOB or cough. Former smoker Assessment: Quit 2012, 52.5 pack year hx. Supplemental oxygen dependent Assessment: On continuous supplemental O2, 2L via NC. [place] Activity Status Index: METS: Take care of self; that is eating, dressing, bathing, using the toilet (2.75 METs) DASI Score: 2.75 (Chronic APPLE 2/2 severe COPD and chronic resp failure requiring supplemental O2) Patient confirms chest pain or undue shortness of breath with the above physical activity. Clinical Frailty Scale: 5. Mildly frail STOP-Bang Score: Patient over 50 years old Denies snoring loudly Denies feeling tired, fatigued, or sleepy during the daytime Has not been observed to stop breathing or choking/gasping during sleep Denies having high blood pressure BMI less than or equal to 35 kg/m2 Does not have a large neck Non-male patient STOP-Bang Score: 1 [id number] Score: Age: <65 Sex: female CHF history: No Hypertension history: No Stroke/TIA/thromboembo lism history: No Vascular disease history: No Diabetes history: No [id number] Score: 1 ANESTHESIA FINDINGS: Intubation History: No history of difficult intubation. No abnormal airway history Significant Anesthesia Considerations: none Airway History: No history of difficult airway No abnormal airway history I - PHYSICAL EVALUATION AIRWAY Patient intubated: No. Tracheostomy tube not present Mallampati: III. TM distance: >3 FB. Neck ROM: full ROM without neurological symptoms. Mouth opening: adequate. Short neck: no. Thick neck: no Lip Bite Test: I Microretrognathia/Micr onagthia/Recessed Chin: No DENTAL Dental findings: teeth intact. II - ANESTHESIA PLAN Anesthetic Plan: other Anesthetic plan additional comments: *PACC/TCI - anesthesia choice. Beta Brittany Monitoring Plan Post Procedure Analgesic Plan Prepared for Surgery: optimally prepared for surgery, pending [see comment]. DOS REVIEW OF LABS and ECG. Patient was seen for PACC the day before scheduled procedure. CONSULTS: Patient does not require consults for optimization at this time Planned Anesthetic: other anesthesia choice The Following Tests/Procedures Have Been Initiated: Orders placed by surgeon/surgical service in [facility]. Orders Placed This Encounter Complete Blood Count and Differential Standing Status: Future Number of Occurrences: 1 Standing Expiration Date: 02/16/2024 BMP Standing Status: Future Number of Occurrences: 1 Standing Expiration Date: 02/16/2024 REASON FOR VISIT: CINTHIA Guerrero is a 63 year old female who is scheduled for Procedure(s): BIOPSY OR EXCISION LYMPH NODE(S) OPEN, DEEP CERVICAL (Left) at the request of Dr. Teo Craft for consultation. My final recommendation will be communicated back to the requesting physician by way of shared medical record or letter. Subjective The patient has the following: ACTIVE PROBLEM LIST Lung Nodule, Solitary Centrilobular Emphysema (Hcc) Chronic Respiratory Failure With Hypoxia (Hcc) Non-Small Cell Cancer of Left Lung (Hcc) Copd, Severe (Hcc) Supplemental Oxygen Dependent Former Smoker COVID-19 Immunization Status Overdue - Covid-19 Vaccine ( season) Never done No completion, postpone, frequency change, or communication history exists for this topic. CHIEF COMPLAINT: lymphadenopathy HPI: CINTHIA Guerrero is a 63 year old female presenting for pre-anesthesia consultation. Pt has history of lung cancer. She was found to have few hypermetabolic left lower cervical/supraclavicul ar lymph nodes suspicious for metastases on recent PET. Above procedure recommended to manage symptoms. Procedure scheduled on 11/18/23 (per pt, surgery currently 12/16/23 i (more content not included)... [facility] 11-16-2023 [facility] Telephone (RADTSA) CINTHIA GUERRERO ([id number]) 1960 F Date Time Provider Department 11/16/23 [facility] [place] During your visit today, we recorded the following information about you: Silvia Jha, LUCIE 11/16/2023 9:51 AM Signed Pt called in requesting to speak to Dr Israel. She is scheduled for surgery Thursday for her lymph nodes. She said she has been having more issues with her breathing and can not remember what her scan had shown in her lungs that she had back in August. Dr Israel- please call pt to review this with her again. She would appreciate a call ALEKS. Thank you Abdi Israel MD 11/16/2023 5:41 PM Signed Spoke with Ms. Guerrero ... Will plan for a CT chest after she is recovered from her procedure and path is final. Thanks! Anita Strickland LPN 11/27/2023 2:57 PM Signed Rodney: Please schedule Omaira for a PET scan then follow up with Dr. Israel. Dr. Israel: Please sign pended PET order as we discussed today. LUCIE Dolan Saju, MD 11/27/2023 4:20 PM Signed Signed and added a CT chest as well. Thanks! Rodney Bedolla 11/30/2023 8:10 AM Signed Patient is called and scheduled for all appointments Rodney Rinaldi 11/30/2023 8:22 AM Signed Yes she has caresource unfornatuly. Allergies As of Date: 11/16/2023 (No Known Allergies) Date Reviewed: 10/27/2023 Reviewed by: Rodney Barry MA - Fully Assessed Reason for Visit: Results [95] Primary Visit Diagnosis:Malignant neoplasm of unspecified part of unspecified bronchus or lung (HCC) [C34.90] Order(s):NM PET/CT SKULL-THIGH SUBSEQUENT [[id number]] Order #: [id number] FUTURE CT CHEST W IVCON [[id number]] Order #: [id number] FUTURE [] iv contrast (will be provided with radiology test)CT Chest W -Inject, intravenously, once for 1 [...] protocol in the CT contrast administration guidelines link.Disp: 1 EachRfl: 0 Prescriptions as of 12/09/2023 - predniSONE 10 mg tablet pack 5 tabs per day for 3 days, 4 tabs per day for 3 ays, 3 tabs perday for 3 days, 2 tabs per day for 3 days, 1 tab a day for 3 days, 1/2 tab a day for 4 days Orally Once a day for 19 days - iv contrast (will be provided with [...] VIAL VIA NEBULIZER TWICE A DAY - montelukast (SINGULAIR) 10 mg tablet Take 10 mg by mouth daily at bedtime. - ipratropium/albuterol sulfate (DUONEB INHALATION) Inhale as instructed. - albuterol (PROVENTIL) 2.5 mg/0.5 mL nebulizar solution PEDIATRIC ASTHMA Inhale 2.5-5 mg as instructed as directed. - Cetirizine 10 mg cap Take by mouth. - Theophylline SR (MI-24) 400 mg 24 hr capsule Take 200 mg by mouth once daily. Problem List As Of Date 11/16/2023 Noted Resolved Lung nodule, solitary [R91.1] 03/02/2018 Centrilobular emphysema (HCC) [J43.2] 03/02/2018 Chronic respiratory failure with hypoxia (HCC) *03/02/2018 Non-small cell cancer of left lung (HCC) [C34.9*04/07/2018 Prescriptions ordered this encounter Disp Refills Start End IV CONTRAST (RADIOLOGY PROCEDURE) 1 Ea* 0 11/27/2023 11/28/2023 Class: In Office Sig: CT Chest W -Inject, intravenously, once for [...] in the CT contrast administration guidelines link. Encounter Status:Closed by SILVIA JHA on 12/09/23 [facility] CNАлександр 10-27-2023 CNOV Office Visit (OTOLMN ) CINTHIA GUERRERO ([id number]) 1960 F Date Time Provider Department 10/27/23 11:00 AM TEO CRAFT OTOLMN During your visit today, we recorded the following information about you: Rodney Barry MA 10/27/2023 11:27 AM Signed Tobacco Use: 1.5 packs/day, for 35 years. Quit 04/13/2012. Types: Cigarettes Was smoking cessation packet given? N/A - Patient is a non-smoker or quit >1 year ago. Was a referral initiated?N/A Patient is a non-smoker Teo Craft MD 12/07/2023 12:32 AM Signed [facility] Consult This consult was requested by Abdi Israel MD for an opinion regarding left neck lymphadenopathy. . My final recommendations will be communicated to the requesting provider by way of shared EMR or letter via the [place] mail. HPI: CINTHIA Guerrero is an 63 year old female who presented to the clinic with history of NSCLC and PET avid lymph nodes in the left neck of unclear significance. She can feel one of the nodes in left neck. Otherwise no head and neck symptoms. She had needle biopsy of the lymph node left level 5 which showed - FINAL DIAGNOSIS Lymph node, left level 5, biopsy: - Fragments of lymphoid tissue; negative for neoplasm (see comment). PAST MEDICAL HISTORY No date: COPD (chronic obstructive pulmonary disease) (HCC) No date: Former smoker No date: Lung cancer (HCC) No date: Supplemental oxygen dependent PAST SURGICAL HISTORY 1972: APPENDECTOMY No date: BRONCHOSCOPY Comment: 2022 1984: SNGL 2011: COLONOSCOPY Current Outpatient Medications Medication Sig Dispense Refill predniSONE 10 mg tablet pack 5 tabs per day for 3 days, 4 tabs per day for 3 ays, 3 tabs perday for 3 days, 2 tabs per day for 3 days, 1 tab a day for 3 days, 1/2 tab a day for 4 days Orally Once a day for 19 days budesonide (PULMICORT) 1 mg/2 mL nebulizer solution INHALE 1 VIAL VIA NEBULIZER TWICE A DAY montelukast (SINGULAIR) 10 mg tablet Take 10 mg by mouth daily at bedtime. 11 ipratropium/albuterol sulfate (DUONEB INHALATION) Inhale as instructed. albuterol (PROVENTIL) 2.5 mg/0.5 mL nebulizar solution PEDIATRIC ASTHMA Inhale 2.5-5 mg as instructed as directed. Cetirizine 10 mg cap Take by mouth. Theophylline SR (MI-24) 400 mg 24 hr capsule Take 200 mg by mouth once daily. 12 iv contrast (will be provided with radiology [...] contrast administration guidelines link. 1 Each 0 No current facility-administered medications for this visit. ALLERGIES No Known Allergies FAMILY HISTORY Problem Relation Age of Onset Asthma No Family History DVT No Family History Cancer No Family History Anesthesia Problems No Family History Social History Tobacco Use Smoking status: Former Current packs/day: 0.00 Average packs/day: 1.5 packs/day for 35.0 years (52.5 ttl pk-yrs) Types: Cigarettes Start date: 1977 Quit date: 2012 Years since quittin.6 Smokeless tobacco: Never Substance Use Topics Alcohol use: Yes Alcohol/week: 3.0 - 4.0 standard drinks of alcohol Types: 3 - 4 Cans of Beer (12oz) per week Drug use: No REVIEW OF RADIOLOGICAL FILMS AND RECORDS: PET scan from September 01, 2023 was personally reviewed there very low left sided posterior neck FDG avid nodes. They are quite small maybe a centimeter at most but do have high avidity. PHYSICAL EXAM: Vitals - There were no vitals taken for this visit. Constitutional - General Appearance: well developed, well nourished, without obvious deformities Communication: speaks with a normal voice without hoarseness Head AND Face - Overall: no obvious scars, lesions or masses Parotid and submandibular glands: no masses or tenderness Facial strength: normal and equal bilaterally Ear, Nose, Mouth AND Throat - Ears: both left and right external auditory canals and TM's are normal, no external deformities Nasal exam: mucosa is pink, septum is midline, visible turbinates are normal on anterior rhinoscopy Oral Cavity and oropharynx: mucosa, hard and soft palates, tongue, tonsil area, posterior pharyngeal wall, lips and gums are without lesions Neck: There is 1 small maybe 1 cm but palpable node in left level 5 I cannot palpate the second one. There are no other masses in the neck. Thyroid: no asymmetry, thyromegaly, or thyroid nodules on palpation Cranial Nerves: II: Pupillary reflexes normal III, IV, : EOM normal V: 1,2,3: normal sensation VII: Normal strength in all divisions IX, X: (more content not included)... Normal [facility] US NECK (POC) HNI USE ONLYon 10-27-2023 [facility] Radiology Study observation (narrative) [facility] CNPNon 09-21-2023 CNPN Telephone (NCCAP) CINTHIA GUERRERO ([id number]) 1960 F Date Time Provider Department 09/21/23 [facility] [place] During your visit today, we recorded the following information about you: Rodney Rinaldi 09/21/2023 7:17 AM Signed Abdi Israel MD Stock, Khushboo Linda MD, MD Cc: Anita Pressley LPN; Silvia Jha, LUCIE; Rodney Rinaldi De Dr. Mcintyre - I appreciate the update and the context for the pathology results. Rashid/Ang/Tiff - please refer Ms. Guerrero to Dr. Craft for consideration of excisional biopsy. Thanks! Abdi Dailey please place orders, thank you! Silvia Jha, LUCIE 09/21/2023 9:05 AM Signed Order pended- please review before signing. Silvia Jha, Silvia Rosales, LUCIE 09/23/2023 8:[address] Israel- please sign pended ENT order so Rodney can contact Dr Craft for consult. LUCIE Mchugh Angela, RN 09/24/2023 3:33 PM Signed Tiff- Dr Israel signed ENT order for Dr Craft. Please schedule and let him know when this consult can be done. Thank you! LUCIE Mchugh Tiffany 09/25/2023 7:21 AM Signed Email sent to cancer answer line for scheduling thanks Rodney Rinaldi 09/29/2023 8:10 AM Signed Patient is scheduled and they have been calling her with appointment. Allergies As of Date: 09/21/2023 (No Known Allergies) Date Reviewed: 09/16/2023 Reviewed by: Rashid Howell RN - Fully Assessed Reason for Visit: Appointment Confirmation [350] Primary Visit Diagnosis:Non-small cell cancer of left lung (HCC) [C34.92] Other Visit Diagnosis: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) [C77.0] Order(s):BIOPSY/REMOVA L, LYMPH NODE(S) [[id number]] Order #: [id number] CONSULT TO ENT [9008] Order #: [id number]: 1 FUTURE Prescriptions as of 09/30/2023 - iv contrast (will be provided with [...] once daily. Problem List As Of Date 09/21/2023 Noted Resolved Lung nodule, solitary [R91.1] 03/02/2018 Centrilobular emphysema (HCC) [J43.2] 03/02/2018 Chronic respiratory failure with hypoxia (HCC) *03/02/2018 Non-small cell cancer of left lung (HCC) [C34.9*04/07/2018 Encounter Status:Closed by RODNEY RINALDI on 09/30/23 [facility] BRIEF OP NOTon 09-16-2023 BRIEF OP NOT HNO ID: [id number] Author: KHUSHBOO MCINTYRE MD Service: Radiology Author Type: Physician Type: Brief Op Note Filed: 09/16/2023 11:09 Note Text: Summary: Left cervical lymph node biopsy BRIEF OPERATIVE / PROCEDURE NOTE LOG ID: [id number] SURGERY/PROCEDURE DATE: 09/16/2023 INCISION/PROCEDURE START TIME: 10:42 AM INCISION CLOSE/PROCEDURE END TIME: 11:02 AM SURGEON(S)/PROCEDURALI ST(S) AND DIRECTOR OF RESPIRATORY THERAPY(S): Surgeon(s) and Role: * Khushboo Mcintyre MD, MD - Primary No Additional Staff SURGERY/PROCEDURE(S): Ultrasound guided biopsy of left cervical lymph node ANESTHESIA: Local, Lidocaine FINDINGS: Palpable mildly enlarge left level 5b node with loss of hilum. Small hematoma around the node after sampling. ESTIMATED BLOOD LOSS: <5mL SPECIMENS: Core 18g x 6 in formalin for surgical pathology COMPLICATIONS: None CLOSURE TECHNIQUE: Primary PRE-OP/PRE-PROCEDURE DIAGNOSIS: cervical adenopathy in setting of prior lung ca POST-OP/POST-PROCEDURE DIAGNOSIS: Same as Preop SIGNATURE: Khushboo Mcintyre MD PATIENT NAME: CINTHIA Guerrero DATE: September 16, 2023 TIME: 11:06 AM [facility] NURSING PROGon 09-16-2023 NURSING PROG HNO ID: [id number] Author: YAKELIN REILLY RN Service: ? Author Type: Registered Nurse Type: Nursing Progress Note Filed: 09/17/2023 08:20 Note Text: Completed post procedure phone call. Omaira is feeling well and has returned to her baseline diet and activity. Omaira denies questions or concerns related to her biopsy appointment on 09/16/23 and had no surgical site concerns. Normal [facility] PT EDon 09-16-2023 PT ED HNO ID: [id number] Author: RASHID HOWELL RN Service: ? Author Type: Registered Nurse Type: Patient Education Filed: 09/16/2023 10:25 Note Text: AMBULATORY PATIENT EDUCATION TOPIC: Survival Skills: HEALTH PROMOTION: Complication prevention READINESS TO LEARN COGNITIVE ABILITY: Alert and oriented MOTIVATION TO LEARN: Interested FAMILY SUPPORT: High - Very involved in pt care INSTRUCTION PROVIDED TO: Patient PATIENT LEARNS BEST BY: Verbal Instruction FACTORS AFFECTING LEARNING: None PHYSICAL LIMITATIONS AFFECTING LEARNING: None LEARNING RESPONSE DIAGNOSIS: Multiple left cervical lymph nodes METHOD OF INSTRUCTION: Verbal instruction PATIENT / FAMILY RESPONSE: Verbalizes understanding of: PRE-PROCEDURE INSTRUCTIONS-Correct action to take to follow pre-procedure instructions FOLLOW-UP PLAN: Complete - No need for follow-up SUPPLEMENTAL MATERIAL: None REFERRAL (RECOMMENDATION): None Electronically Signed By: Rashid Howell RN In Department: HOSP MAIN [id number] Normal [facility] SURGICAL PATHOLOGYon 024 CASE REPORT Normal [facility] Comment on above: Order Comment: Speci men Type: TISSUE SPECIMENOrdering Facility: [facility] Address: [address] [place] [address] Result Comment: Surg ical Pathology Report Case: [id number] Authorizing Provider: Khushboo Mcintyre MD, MD Collected: 09/16/2023 10:48 AM Ordering Location: [place] [address] Received: 09/16/2023 04:42 PM Pathologist: Tucker Mulligan V, MD Specimen: Lymph Node, Biopsy, left level 5 Performed By: #### S ####[facility]IA [id number] [address] [place] CLINICAL HISTORY history of lung ca Normal [facility] Comment on above: Order Comment: Speci men Type: TISSUE SPECIMENOrdering Facility: [facility] Address: [address] [place] [address] Performed By: #### S ####[facility] LABCLIA [id number] [address] OF [facility] DIAGNOSIS COMMENT Normal [facility] Comment on above: Order Comment: Speci men Type: TISSUE SPECIMENOrdering Facility: [facility] Address: [address] [place] [address] Result Comment: Immu nohistochemical stains were performed to evaluate the lymphoid tissue, composed of a mix population of B (CD20 positive) and T (CD3 positive) lymphocytes and exclude the presence of carcinoma (cytokeratin CAM5.2 and cytokeratin AE1/AE3 negative). No granulomas or neoplasm are present. Laboratory Developed Test (LDT) Disclaimer: Performance characteristics of immunohistochemical, immunofluorescent and chromogenic in-situ hybridization tests have been determined by the performing laboratory within [facility]???s Adarsh Don [facility] Pathology and Laboratory Medicine Department ([facility], [facility], [facility], [facility], [facility], [facility], or [facility]) in a manner consistent with CLIA requirements. One or more of these tests have not been cleared or approved by the FDA. [facility] is regulated under CLIA as qualified to perform high-complexity testing. These tests are used for clinical purposes. They should not be regarded as investigational or for research. Positive and negative controls stain appropriately. Performed By: #### S ####[facility] LABCLIA [id number] [address] [place] FINAL DIAGNOSIS Normal [facility] Comment on above: Order Comment: Speci men Type: TISSUE SPECIMENOrdering Facility: [facility] Address: [address] [place] [address] Result Comment: Lymp h node, left level 5, biopsy: - Fragments of lymphoid tissue; negative for neoplasm (see comment). NE/ 09/17/2023 Performed By: #### S ####[facility] LABCLIA [id number] [address] OF [facility] FINAL PERFORMING LAB Normal [facility] Comment on above: Order Comment: Speci men Type: TISSUE SPECIMENOrdering Facility: [facility] Address: [address] [place] [address] Result Comment: Diag nostic interpretation performed at [facility], [address] [place] [address] CLIA# [id number] Event Marketing Specialist: Axel Romano M.D. Performed By: #### S ####[facility] LABIA [id number] [address] [place] GROSS DESCRIPTION Normal [facility] Comment on above: Order Comment: Speci men Type: TISSUE SPECIMENOrdering Facility: [facility] Address: [address] [place] [address] Result Comment: A. L ymph Node, Biopsy Received in formalin are multiple segments of cylindrical tissue 1.3 x 0.2 x 0.1 cm, carcamo and of a soft and friable consistency. Totally submitted in one cassette. Gross examination performed at [address] September 16, 2023 7:23 PM Performed By: #### S ####[facility] LABCLIA [id number] [address] [id number] [address] [place] US BIOPSY CERVICAL LYMPH NOD Archie 09-16-2023 US BIOPSY CERVICAL LYMPH NODE * * *Final Report* * * DATE OF EXAM: Sep 16 2023 2:45PM [facility] [place] - [place] BIOPSY CERVICAL LYMPH NODE / PROCEDURE REASON: C34.90-Malignant neoplasm of unspecified part of unspecified bronchus or lung (H * * * * Physician Interpretation * * * * PROCEDURE PERFORMED: ULTRASOUND GUIDED LYMPH NODE BIOPSY ON 09/16/2023 PRE-PROCEDURE DIAGNOSIS: History of lung cancer presenting with left level 5 adenopathy POST-PROCEDURE DIAGNOSIS: Same as preoperative INDICATION FOR PROCEDURE: The patient is a 63 years old Female who presents with FDG avid left low cervical lymphadenopathy, palpable, in the setting of prior lung cancer. STAFF RADIOLOGIST: Dr. Lopez Mcintyre DIRECTOR OF RESPIRATORY THERAPY(S): None CONSENT: Informed consent was obtained for this procedure. Details of informed consent can be found in [facility] under the consent tab. TIME OUT: A time out was performed immediately prior to procedure start with the nursing, anesthesia and interventional team, correctly identifying the patient name, date of , procedure, anatomy (including marking of site and side), patient position, procedure consent form, relevant diagnostic and radiology test results, antibiotic administration, safety precautions, and procedure-specific equipment needs. RESULT: PROCEDURE: After performing the time out, the left level 5 lymph node was localized with ultrasound, images were obtained and archived. The left neck was prepped and draped in the usual sterile fashion. Under direct ultrasound guidance, 6 passes were made into the lesion using an 18 gauge cutting needle. The procedure was performed by the: attending radiologist, without an lpn medical assistant. The attending radiologist performed the following procedural activities: Entire procedure ANESTHESIA/SEDATION: Local anesthesia was achieved utilizing 9 cc 2% percent lidocaine. Vital signs were monitored by the nurse. START TIME/TIMEOUT TIME: 1042 END TIME: 1102 INTRA-SERVICE (SEDATION) TIME: Not applicable PATIENT MONITORING: I personally supervised and directed an independent trained observer who assisted in monitoring the patient?s level of consciousness and physiological status throughout the procedure. COMPLICATIONS: None SIGN-OUT DISCUSSION: Completed ESTIMATED BLOOD LOSS: None SPECIMENS: 6 core biopsy specimen(s) was/were placed in formalin for surgical pathology BIOPSY DEVICE: 18 gauge Quick-Core biopsy needle. IMPRESSION: ULTRASOUND GUIDED BIOPSY DESCRIBED v 05/25/18 Windows Migration Technician: PSCB Transcribe Date/Time: Sep 16 2023 4:33P Dictated by : KHUSHBOO MCINTYRE MD This examination was interpreted and the report reviewed and electronically signed by: KHUSHBOO MCINTYRE MD on Sep 20 2023 4:11PM EST [id number] Normal [facility] CBC panel Auto (Bld)on 09-13 Erythrocyte distribution width (RBC) [Ratio] 13.2 % Normal 11.5-15.0 [facility] Comment on above: Order Comment: Speci men Type: BLOOD SPECIMENOrdering Facility: [facility] Address: [address] [place] [address] Performed By: #### 5 8410-2 ####[facility] LABCLIA [id number] [place] [address] Hematocrit (Bld) [Volume fraction] 38.5 % Normal 36.0-46.0 [facility] Comment on above: Order Comment: Speci men Type: BLOOD SPECIMENOrdering Facility: [facility] Address: [address] [place] [address] Performed By: #### 5 8410-2 ####[facility] LABCLIA [id number] [place] [address] Hemoglobin (Bld) [Mass/Vol] 11.8 g/dL Normal 11.5-15.5 [facility] Comment on above: Order Comment: Speci men Type: BLOOD SPECIMENOrdering Facility: [facility] Address: [address] [place] [address] Performed By: #### 5 8410-2 ####[facility] LABCLIA [id number] [place] [address] MCH (RBC) [Entitic mass] 27.2 pg Normal 26.0-34.0 [facility] Comment on above: Order Comment: Speci men Type: BLOOD SPECIMENOrdering Facility: [facility] Address: [address] [place] [address] Performed By: #### 5 8410-2 ####[facility] LABCLIA [id number] [place] [address] MCHC (RBC) [Mass/Vol] 30.6 g/dL Normal 30.5-36.0 [facility] Comment on above: Order Comment: Speci men Type: BLOOD SPECIMENOrdering Facility: [facility] Address: [address] [place] [address] Performed By: #### 5 8410-2 ####[facility] LABCLIA [id number] [place] [address] MCV (RBC) [Entitic vol] 88.7 fL Normal 80.0-100.0 [facility] Comment on above: Order Comment: Speci men Type: BLOOD SPECIMENOrdering Facility: [facility] Address: [address] [place] [address] Performed By: #### 5 8410-2 ####[facility] LABIA [id number] [place] [address] Nucleated RBC (Bld) [#/Vol] 10*3/uL Normal <0.01 [facility] Comment on above: Order Comment: Speci men Type: BLOOD SPECIMENOrdering Facility: [facility] Address: [address] [place] [address] Performed By: #### 5 8410-2 ####[facility] LABIA [id number] [place] [address] Platelet mean volume (Bld) [Entitic vol] 8.9 fL Low 9.0-12.7 [facility] Comment on above: Order Comment: Speci men Type: BLOOD SPECIMENOrdering Facility: [facility] Address: [address] [place] [address] Performed By: #### 5 8410-2 ####[facility] LABIA [id number] [place] [address] Platelets (Bld) [#/Vol] 288 10*3/uL Normal 150-400 [facility] Comment on above: Order Comment: Speci men Type: BLOOD SPECIMENOrdering Facility: [facility] Address: [address] [place], [place] [address] Performed By: #### 5 8410-2 ####[facility] LABIA [id number] [place] [address] RBC (Bld) [#/Vol] 4.34 10*6/uL Normal 3.90-5.20 [facility] Comment on above: Order Comment: Speci men Type: BLOOD SPECIMENOrdering Facility: [facility] Address: [address] [place], [place] [address] Performed By: #### 5 8410-2 ####[facility] LABIA [id number] [place] [address] WBC (Bld) [#/Vol] 7.28 10*3/uL Normal 3.70-11.00 [facility] Comment on above: Order Comment: Speci men Type: BLOOD SPECIMENOrdering Facility: [facility] Address: [address] [place] [address] Performed By: #### 5 8410-2 ####[facility] LABIA [id number] [place] [address] NURSING PROGon 09-14-2023 NURSING PROG HNO ID: [id number] Author: YAKELIN ONOFRE LPN Service: ? Author Type: LICENSED NURSE Type: Nursing Progress Note Filed: 09/14/2023 10:55 Note Text: Pre- e instructions: Address: [address] [place] [address] Contacted patient and confirmed appt. for biopsy scheduled on 09/16/23, at [facility]. Diet: Procedure to be done with local anesthetic, you may eat, drink and take medications as prescribed the day of this procedure. Medications: IF ok with your Prescribing Provider: RADIOLOGY RECOMMENDS THESE MEDICATION RESTRICTIONS : None Labs: Lab work needs to be drawn by 09/15/23 at any [facility] Lab. Arrival: Please bring your Photo ID and Insurance Card. A general consent may need to be signed. Arrival at 8:30am to desk QB-1 ([facility]) and check in for your procedure. Store Promoter/Transportation: Store Promoter not necessary Written instructions provided to patient via [employer] If you have any questions please call [phone] [facility] (IRRFV) LIZETHCINTHIA Capone ([id number]) 1960 F Date Time Provider Department 09/08/23 ABDI ISRAEL IRRFV During your visit today, we recorded the following information about you: Chloe Nicole 09/08/2023 10:45 AM Signed RADIOLOGY CALL CENTER INTAKE DATE: 09/08/2023 TIME: 10:44am REQUESTING STAFF: Abdi Israel MD PHONE/PAGER: [phone] SPECIFICS OF THE REQUEST:Cervical lymph node bx SPECIAL REQUESTS: TISSUE SAMPLE, LABWORK: N/A IS THIS REQUEST PART OF A RESEARCH PROTOCOL: No MEDICAL DIAGNOSIS: Malignant neoplasm of unspecified part of unspecified bronchus or lung (HCC) [C34.90] TYPE AND DATE OF THE EXAM THAT IS THE BASIS OF THE REQUEST: PET 09/01/2023 IMAGING: [facility] [place] Note to all persons requesting biopsies: All biopsy requests will be scheduled as quickly as possible, based on the clinical urgency, availability of appointment times, the need to hold anti-thrombolytic therapy (aspirin, blood thinners) and the patient?s schedule, including the need for an available class a regional drivers. If a percutaneous biopsy or drainage is not felt to be safe or an alternative method for establishing a diagnosis is possible, this will be discussed directly with the requesting physician. Yakelin Onofre LPN 09/08/2023 11:36 AM Signed BX. COORDINATOR INFORMATION LAB RESULTS: No results found for: INR No results found for: APTT Platelet Count (k/uL) Date Value 04/24/2022 401 03/02/2018 234 Current Outpatient Medications Medication Sig iv contrast (will be provided with radiology [...] in the CT contrast administration guidelines link. budesonide (PULMICORT) 1 mg/2 mL nebulizer solution [...] Cetirizine 10 mg cap Take by mouth. Theophylline SR (MI-24) 400 mg 24 hr capsule Take 400 mg by mouth once daily. No current facility-administered medications for this visit. ALLERGIES No Known Allergies FILMS SENT TO WORKSTATION: GUIDELINES FOR HOLDING ANTI-PLATELET AND ANTI- COAGULATION THERAPY: none on file NURSE SIGNATURE: Yakelin Onofre LPN DATE: September 08, 2023 TIME: 11:34 AM Osito Galicia MD 09/09/2023 9:34 AM Signed RADIOLOGIST REQUEST / APPROVAL FORM STAFF RADIOLOGIST: Dr. Niko Gatica PROCEDURE TO BE DONE UNDER: US PROCEDURE REQUESTED: FNA Requested PROCEDURE: Approved TIME SLOT NEEDED: 1 Hour NOTES: None SPECIAL LABS/ PROCESSING: None Pre-procedure labs: CBC: ordered INR: not needed COVID: not needed SIR Bleeding risk category for this procedure: intermediate-high risk. Reference from [facility]: https://[facility].policyAs Seen on TV .com/dotNet/documents/ ?wnfxn=42126 STAFF SIGNATURE: Osito Galicia MD DATE: September 09, 2023 TIME: 9:31 AM Neha Leyva 09/14/2023 10:17 AM Signed Spoke to pt and scheduled biopsy for 09/16/23. Allergies As of Date: 09/08/2023 (No Known Allergies) Date Reviewed: 05/25/2023 Reviewed by: Anita Pressley LPN - Fully Assessed Reason for Visit: Cervical lymph node bx [Other] Prescriptions as of 09/14/2023 - iv contrast (will be provided with [...] mg/0.5 mL nebulizar solution PEDIATRIC ASTHMA Inhale (more content not included)... [facility] CNPN Telephone (NCCAP) CINTHIA GUERRERO ([id number]) 1960 F Date Time Provider Department 09/08/23 ABDI [place]RA[place] During your visit today, we recorded the following information about you: Rodney Rinaldi 09/08/2023 7:24 AM Signed Abdi Israel MD Graves, Ariana, LPN Cc: iSlvia Jha, RN; Rodney Rinaldi Please set Ms. Guerrero up for an US guided biopsy of one of the lymph nodes in the neck seen on PET CT at either [facility] or [place]. Thanks! Abdi Nicolas MD 09/08/2023 9:51 AM Signed Yes please - Abdi Nicolas MD 09/08/2023 10:37 AM Signed Signed - thanks! Rodney Bedolla 09/14/2023 9:55 AM Signed Hey Girl, just checking on this one thanks Rodney Rinaldi 09/14/2023 10:31 AM Signed Patient is scheduled 09/15 for biopsy Abdi Israel MD 09/14/2023 10:56 AM Signed Thanks! Abdi Allergies As of Date: 09/08/2023 (No Known Allergies) Date Reviewed: 05/25/2023 Reviewed by: Anita Pressley LPN - Fully Assessed Reason for Visit: Biopsy Request [1576] Prescriptions as of 09/14/2023 - iv contrast (will be provided with [...] once daily. Problem List As Of Date 09/08/2023 Noted Resolved Lung nodule, solitary [R91.1] 03/02/2018 Centrilobular emphysema (HCC) [J43.2] 03/02/2018 Chronic respiratory failure with hypoxia (HCC) *03/02/2018 Non-small cell cancer of left lung (HCC) [C34.9*04/07/2018 Encounter Status:Closed by RODNEY RINALDI on 09/14/23 [facility] CONSULT PROGon 09-01-2023 CONSULT PROG HNO ID: [id number] Author: STACIA IRVING RN Service: ? Author Type: Registered Nurse Type: Consult Progress Note Filed: 09/01/2023 12:59 Note Text: Radiology Service Progress Note DATE OF SERVICE: September 01, 2023 TIME: 12:54 PM PATIENT WEIGHT: 4kg PATIENT IDENTITY VERIFICATION COMPLETED USING TWO (2) STANDARD IDENTIFIERS: Name and Date of confirmed by patient verbally. FALL SCREENING: Has the patient had 2 falls in the last year or 1 fall with injury or currently using an Ambulatory Assistive Device (Walker, Cane, Wheelchair, Crutches, etc.)? No PATIENT GENDER DATA: Female. status: : No status: NO. ALLERGIES: Reviewed and unchanged CONTRAST ALLERGY: No EXAM: CT -CONTRAST INDUCED NEPHROPATHY RISK FACTORS: Not applicable CREATININE: Creatinine Date Value Ref Range Status 04/24/2022 0.48 (L) 0.58 - 0.96 mg/dL Final 03/02/2018 0.48 (L) 0.58 - 0.96 mg/dL Final Estimated Glomerular Filtration Rate Date Value Ref Range Status 04/24/2022 109 >=60 mL/min/1.73m? Final Comment: Estimated Glomerular Filtration Rate (eGFR) is calculated using [...] RESULTS: POC done: Yes, See Lab Tab September 01, 2023 TREATMENT: N/A and No Hydration needed. IV SITE: Ambulatory: A peripheral IV was started in the Left forearm with a Angio cath: 24 gauge. IV SITE APPEARANCE: Clean,Dry and Intact SIGNATURE: Stacia Irving RN PATIENT NAME: CINTHIA Guerrero DATE: September 01, 2023 TIME: 12:54 PM Normal [facility] PET/CT SKULL-THIGH SUBQon 09-01-2023 NM PET/CT SKULL-THIGH SUBQ * * *Final Report* * * DATE OF EXAM: Sep 01 2023 2:00PM NRN 0063 - NM PET/CT SKULL-THIGH SUBQ / PROCEDURE REASON: Malignant neoplasm of unspecified part of unspecified bronchus or lung (HCC) * * * * Physician Interpretation * * * * RESULT: EXAMINATION: BODY FDG PET-CT CLINICAL HISTORY: 63 years old Female with Malignant neoplasm of unspecified part of unspecified bronchus or lung (HCC) . INDICATION: Subsequent treatment strategy. TECHNIQUE: Radiopharmaceutical was administered IV followed about 60 minutes later by PET imaging from skull base to proximal thigh. Free breathing, low dose CT of the same body region was acquired without IV contrast for attenuation correction and anatomic localization. * CT Dose-Length Product (DLP): 122 mGy*cm * CT Dose Reduction Employed: Yes * Blood glucose (mg/dL): 95 * Radiopharmaceutical Dose: 6.6 mCi * Radiopharmaceutical: G00-Vjjspgpfuipzjyjjkp (FDG) COMPARISON: PET/CT 03/07/2022 CORRELATION: CT 08/13/23 RESULT: REFERENCES: SUV reference values: * Blood pool (descending aorta) activity: SUVmax 1.8 * Background liver activity: SUVmax 2.2; SUVmean 1.6 Shake Sawyer (topogram) images: No additional findings Notes and limitations: * Standardized uptake values indicate the highest activity concentration (SUVmax) at a given location but can be variable and are not absolute. * Physiologic/non-neopla stic uptake is common in the brain, extraocular muscles, oral cavity, tonsils, salivary glands, vocal cords, myocardium, liver, GI tract, urinary tract, and bone marrow among others. Certain regions and organ systems can have more intense uptake, which could confound or obscure some pathology. * Unenhanced imaging is limited for the evaluation of some pathology and the acquired CT was not designed to produce or replace diagnostic CT scan quality. * PET-CT is often not sensitive for pulmonary nodules less than 8 mm. HEAD AND NECK: Imaged Head: No abnormal uptake. Neck and Lymph Nodes: Few hypermetabolic left lower cervical/supraclavicul ar lymph nodes measuring up to 1.2 cm (max SUV 4.7). Thyroid: No abnormal uptake. CHEST: Lungs and Airways: Left apical left suprahilar region consolidation/opacity with low activity (Max SUV 3.3) likely posttreatment change. Additionally there is a more focal nodular opacity measuring about 3 x 2.5 cm hypermetabolic activity (max SUV 6.7) raising suspicious for neoplasm. Emphysematous changes in the lungs. Pleura and Pericardium: No abnormal uptake. Cardiovascular: No abnormal uptake. Mediastinum and Lymph Nodes: No abnormal uptake. ABDOMEN AND PELVIS: Hepatobiliary: No abnormal uptake. Spleen: No abnormal uptake. Pancreas: No abnormal uptake. Adrenals: No abnormal uptake. Urinary Tract: No abnormal uptake. GI Tract: Hypermetabolic focus in the region of the sigmoid colon (max SUV 9.2). Peritoneum: No abnormal uptake. Vasculature: No abnormal uptake. Retroperitoneum and Lymph Nodes: No abnormal uptake. Pelvis: No abnormal uptake. MUSCULOSKELETAL: Osseous: No abnormal uptake. Soft Tissues: No abnormal uptake. IMPRESSION: HEAD/NECK: * Few hypermetabolic left lower cervical/supraclavicul ar lymph nodes suspicious for metastases. CHEST: * Left apical left suprahilar region consolidation/opacity with low level mild activity likely posttreatment change. Additional a more focal hypermetabolic nodular opacity raising suspicious for neoplasm. ABDOMEN/PELVIS: * Hypermetabolic focus in the region of the sigmoid colon ,Endoscopic correlation suggested. MUSCULOSKELETAL: * No FDG avid neoplastic process. Transcribe Date/Time: Sep 05 2023 11:59A Dictated by: ALDEN BOUDREAUX MD This examination was interpreted and the report reviewed and electronically signed by: ALDEN BOUDREAUX MD on Sep 05 2023 12:31PM EST Thank you for allowing us to participate in the care of your patient. Should there be any questions regarding this interpretation, please call [phone]. If you are unable to reach us at the number above, please feel free to contact [facility] eRadiology at [phone]. [id number] Normal [facility] CNPNon 08-14-2023 CNPN Telephone (RADTSA) LIZETHCINTHIA ONTIVEROS ([id number]) 1960 F Date Time Provider Department 08/14/23 ABDI ISRAEL During your visit today, we recorded the following information about you: Silvia Jha RN 08/14/2023 9:34 AM Signed Pt called in to let us know she had a CT at [facility] ordered per Dr Kenyon yesterday. He called her today to let her know that there was something concerning and he wanted her to contact our office. CT report printed from [facility] and images requested. Dr Israel- please advise when you have had a chance to review. Thank you LUCIE Mchugh Saju, MD 08/17/2023 9:57 AM Signed Definite changes in the left chest from previous available scan in April. Ordered PET to further characterize findings and please request CT Chest images from 07/2023. Thanks! Silvia Britt RN 08/17/2023 1:01 PM Signed Scan from July was CXR. Per LORENZO, no need to get images. PSS- I spoke to pt and she is expecting your call to arrange PET here. Thank you LUCIE Mchugh Tiffany 08/17/2023 1:18 PM Signed Called patient and left message with date and time of Time, due to her insurance It has to be put out 2 weeks I told her to please call me back if she has any questions thank you. Rodney Rinaldi 08/18/2023 9:15 AM Signed Seen patient checked her mychart yesterday for appointments. Allergies As of Date: 08/14/2023 (No Known Allergies) Date Reviewed: 05/25/2023 Reviewed by: Anita Pressley LPN - Fully Assessed Reason for Visit: Patient Update [1234] Primary Visit Diagnosis:Malignant neoplasm of unspecified part of unspecified bronchus or lung (HCC) [C34.90] Order(s):NM PET/CT SKULL-THIGH SUBSEQUENT [[id number]] Order #: [id number] FUTURE Prescriptions as of 08/18/2023 - iv contrast (will be provided with [...] once daily. Problem List As Of Date 08/14/2023 Noted Resolved Lung nodule, solitary [R91.1] 03/02/2018 Centrilobular emphysema (HCC) [J43.2] 03/02/2018 Chronic respiratory failure with hypoxia (HCC) *03/02/2018 Non-small cell cancer of left lung (HCC) [C34.9*04/07/2018 Encounter Status:Closed by SILIVA JHA on 08/18/23 [facility] CNOVon 05-25-2023 CNOV Office Visit (RADTSA ) CINTHIA GUERRERO ([id number]) 1960 F Date Time Provider Department 05/25/23 11:00 AM ABDI ISRAEL During your visit today, we recorded the following information about you: Temperature Pulse Respiration Weight 97.4 degrees 110/minute 18/minute 42 kg Abdi Israel MD 06/09/2023 1:43 AM Addendum Radiation Oncology - Follow Up Note PATIENT NAME: CINTHIA Guerrero PATIENT DIAGNOSIS/PATIENT IDENTIFICATION: Ms. Guerrero is a 62-year-old woman with severe COPD, who is diagnosed with Stage IA3, [id number], non-small cell lung cancer arising from a [...] to clinic today for routine follow-up approximately five years after the completion of her radiation treatments and six months since her last visit on 11/27/2022. In the interim, she had repeat CT of the chest earlier this month on 05/14/2023 which showed stable response in the treated left upper lobe lung lesion and no new definite findings concerning for recurrent or new disease. Today she reports multiple COPD exacerbations since her last visit including earlier this month and was discharged on antibiotics which she completed as well as a steroid taper on which she has 5 days remaining. She remains on supplemental oxygen at 2 L/min bkpyqj-coc-qjznw and continues on Pulmicort and albuterol rescue inhaler. He denies cough or hemoptysis or chest pain or difficulty swallowing today. She does note fatigue with stable appetite and hydration. 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 She otherwise denies any recent fevers, chills, headaches, difficulty with speech/swallowing, chest pain/palpitations, abdominal pain, nausea, vomiting, change in bowel/urinary habits, difficulty with gait/balance, recent falls, etc. The remainder of the review of systems was performed and was otherwise noncontributory. ALLERGIES ALLERGIES No Known Allergies MEDICATIONS: Current Outpatient Medications: budesonide (PULMICORT) 1 mg/2 mL nebulizer solution STIOLTO RESPIMAT 2.5-2.5 mcg/actuation mist montelukast (SINGULAIR) 10 mg tablet ipratropium/albuterol sulfate (DUONEB INHALATION) senna-docusate (SENOKOT-S) 8.6-50 mg per tablet albuterol (PROVENTIL) 2.5 mg/0.5 mL nebulizar solution PEDIATRIC ASTHMA Cetirizine 10 mg cap Theophylline SR (MI-24) 400 mg 24 hr capsule iv contrast (will be provided with radiology test) PHYSICAL EXAM: GENERAL: Middle-age woman sitting in chair in no acute distress. VITALS: Pulse 110 Temp 97.4 Resp 18 Wt 92 lb 9.5 oz (42.0kg) SpO2 96[O2 at 2L/NC]% KPS: 70 HEENT: NC/AT, anicteric sclera HEART: S1S2 LUNGS: non-labored breathing ABDOMEN: soft MUSCULOSKELETAL: no peripheral edema, moves all extremities. NEURO: no focal deficit; AANDO X3. RADIOLOGIC DATA: CT Chest (05/14/2023) ASSESSMENT AND PLAN: Ms. Guerrero is a 62-year-old woman with severe COPD, who is diagnosed with Stage IA3, [id number], non-small cell lung cancer arising from a [...] cGy in 5 fractions). Ms. Guerrero is stable from a radiation standpoint approximately 5 years out from the completion of her SBRT treatments to the left upper lobe of the chest although she continues to suffer from COPD exacerbations requiring hospitalization and steroids/antibiotics. 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 She had repeat CT imaging of the chest from earlier this month on 05/14/2023 again showing stability in the treated left upper lobe lung nodule with no other definite evidence of recurrent or new disease in the chest. I will plan to see her back in approximately a year with repeat CT of the chest. The patient is aware to contact the clinic in the interim should any questions or concerns arise. Thank you for allowing us to participate in the care of this patient. Signed by: Abdi Israel MD I spent a total of 20 minutes on the date of the service which included preparing to see the patient, [id number] patient care, and counseling and educating the patient/family/careg (more content not included)... Normal [facility] CNPNon 05-20-2023 CNPN Telephone (RADTSA) CINTHIA GUERRERO ([id number]) 1960 F Date Time Provider Department 05/20/23 ABDI ISRAEL During your visit today, we recorded the following information about you: Silvia Jha, LUCIE 05/20/2023 9:55 AM Signed Pt called in and was admitted to [facility] last week. They did CT Chest. She has been waiting on insurance approval for a chest CT and will not need one now. She would like follow up arranged. Reports printed from [facility] and images requested. PSS- please call pt and arrange follow up with Dr Israel for next week. Thank you LUCIE Mchugh Tiffany 05/20/2023 9:59 AM Signed Patient is called and scheduled for next week Allergies As of Date: 05/20/2023 Noted Allergy Reaction LEVOQUIN (LEVOFLOXACIN) 03/02/2018 16 - Unknown Comments: Tendonitis but can take avalox Date Reviewed: 11/27/2022 Reviewed by: Silvia Jha RN - Fully Assessed Reason for Visit: [...] lung (HCC) [C34.9*04/07/2018 Encounter Status:Closed by SILVIA JHA on 05/20/23 Normal [facility] Complete Blood Count Auto Di ffon 05-15-2023 Basophils (Bld) [#/Vol] 0.0 10*3/uL Normal 0.0-0.2 [facility] Comment on above: Result Comment: PERF ORMED BY: [facility] [address] [address] PATHOLOGIST HEAD OF ICT JASMEET LIN M.D. Performed By: #### C MP, CBC #### [facility] [address] [place] [address] [place] Basophils/100 WBC (Bld) 0.3 % Normal . [facility] Comment on above: Performed By: #### C MP, CBC #### [facility] [address] [place] [address] [place] Eosinophils (Bld) [#/Vol] 0.0 10*3/uL Normal 0.0-0.45 [facility] Comment on above: Performed By: #### C MP, CBC #### [facility] [address] [place] [address] [place] Eosinophils/100 WBC (Bld) 0.0 % Normal . [facility] Comment on above: Performed By: #### C MP, CBC #### [address] Erythrocyte distribution width (RBC) [Ratio] 13.5 % Normal 11.9-15.3 [facility] Comment on above: Performed By: #### C MP, CBC #### [place] [address] [place] Hematocrit (Bld) [Volume fraction] 42.0 % Normal 34.0-46.4 [facility] Comment on above: Performed By: #### C MP, CBC #### [place] [address] [place] Hemoglobin (Bld) [Mass/Vol] 13.9 g/dL Normal 11.8-15.4 [facility] Comment on above: Performed By: #### C MP, CBC #### [place] [address] [place] Lymphocytes (Bld) [#/Vol] 0.6 10*3/uL Low 1.00-4.8 [facility] Comment on above: Performed By: #### C MP, CBC #### [place] [address] [place] Lymphocytes/100 WBC (Bld) 8.4 % Normal . [facility] Comment on above: Performed By: #### C MP, CBC #### [facility] [address] MCH (RBC) [Entitic mass] 28.0 pg Normal 24.7-34.3 [facility] Comment on above: Performed By: #### C MP, CBC #### [address] MCV (RBC) [Entitic vol] 84.8 fL Normal 80-100 [facility] Comment on above: Performed By: #### C MP, CBC #### [address] Mean Corpuscular HGB Conc 33.0 g/dL Normal 32.0-35.0 [facility] Comment on above: Performed By: #### C MP, CBC #### [address] Monocytes (Bld) [#/Vol] 0.4 10*3/uL Normal 0.0-0.8 [facility] Comment on above: Performed By: #### C MP, CBC #### [address] Monocytes/100 WBC (Bld) 4.9 % Normal . [facility] Comment on above: Performed By: #### C MP, CBC #### [address] Neutrophils (Bld) [#/Vol] 6.6 10*3/uL Normal 1.8-7.7 [facility] Comment on above: Performed By: #### C MP, CBC #### [address] Neutrophils/100 WBC (Bld) 86.4 % Normal . [facility] Comment on above: Performed By: #### C MP, CBC #### [address] NRBC% 0.0 /100{WBC} Normal 0-0.5 [facility] Comment on above: Performed By: #### C MP, CBC #### [address] [place] [address] [place] Platelet mean volume (Bld) [Entitic vol] 7.3 fL Normal 6.3-10.7 [facility] Comment on above: Performed By: #### C MP, CBC #### [facility] [address] Platelets (Bld) [#/Vol] 378 10*3/uL Normal 150-450 [facility] Comment on above: Performed By: #### C MP, CBC #### [facility] [address] RBC (Bld) [#/Vol] 4.95 10*6/uL Normal 3.60-5.00 [facility] Comment on above: Performed By: #### C MP, CBC #### [address] WBC (Bld) [#/Vol] 7.6 10*3/uL Normal 3.8-11.6 [facility] Comment on above: Performed By: #### C MP, CBC #### [address] Comprehensive Metabolic Pane shelby 05-15-2023 Albumin [Mass/Vol] 4.0 g/dL Normal 3.5-5.7 [facility] Comment on above: Performed By: #### C MP, CBC ####[facility] [place], [place] [id number] [facility] Albumin/Globulin [Mass ratio] 1.3 {ratio} Normal [facility] Comment on above: Performed By: #### C MP, CBC ####[facility] [place] [address] [facility] ALP [Catalytic activity/Vol] 68 U/L Normal 34-104 [facility] Comment on above: Performed By: #### C MP, CBC ####[facility] [place] [id number] [facility] ALT [Catalytic activity/Vol] 13 U/L Normal 7-52 [facility] Comment on above: Performed By: #### C MP, CBC ####[facility] [address] [place] [address] [facility] Anion gap [Moles/Vol] 6.9 mmol/L Normal 6.0-15.0 [facility] Comment on above: Performed By: #### C MP, CBC ####[facility] [place] [address] [facility] AST [Catalytic activity/Vol] 16 U/L Normal 13-39 [facility] Comment on above: Performed By: #### C MP, CBC ####[place] [address] [place] [address] [facility] Bilirubin [Mass/Vol] 0.4 mg/dL Normal 0.3-1.0 [facility] Comment on above: Performed By: #### C MP, CBC ####[place] [address] [place] [address] [facility] Calcium [Mass/Vol] 9.7 mg/dL Normal 8.6-10.3 [facility] Comment on above: Performed By: #### C MP, CBC ####[place] [address] [place] [address] [facility] Chloride [Moles/Vol] 90 mmol/L Low 98-107 [facility] Comment on above: Performed By: #### C MP, CBC ####[place] [address] [place] [address] [facility] CO2 [Moles/Vol] 44.4 mmol/L High 21.0-31.0 [facility] Comment on above: Performed By: #### C MP, CBC ####[place] [address] [place] [address] [facility] Creatinine [Mass/Vol] 0.48 mg/dL Low 0.60-1.20 [facility] Comment on above: Performed By: #### C MP, CBC ####[place] [address] [place] [address] [facility] Creatinine Clr Calc Pharmacy 76.17 Normal [facility] Comment on above: Result Comment: PERF ORMED BY: [facility] [address] [place] [id number] PATHOLOGIST HEAD OF ICT JASMEET LIN M.D. Performed By: #### C MP, CBC ####[place] [address] [place] [address] [place] GFR/1.73 sq M.predicted MDRD (S/P/Bld) [Vol rate/Area] mL/min/{1.73_m2} [facility] Comment on above: Performed By: #### C MP, CBC ####[address] [address] [facility] Globulin (S) [Mass/Vol] 3.1 g/dL [facility] Comment on above: Performed By: #### C MP, CBC ####[place] [address] [place] [address] [facility] Glucose [Mass/Vol] 148 mg/dL High 70-100 [facility] Comment on above: Result Comment: [facility] Glucose Reference Range is dependent on time and content of last meal. Glucose of more than 200 mg/dL in a nonstressed, ambulatory subject supports the diagnosis of Diabetes Mellitus. ADA recommended reference range Performed By: #### C MP, CBC ####[address] [address] [facility] Potassium [Moles/Vol] 4.3 mmol/L Normal 3.5-5.1 [facility] Comment on above: Performed By: #### C MP, CBC ####[address] [address] [facility] Protein [Mass/Vol] 7.1 g/dL Normal 6.4-8.9 [facility] Comment on above: Performed By: #### C MP, CBC ####[address] [address] [facility] Sodium [Moles/Vol] 137 mmol/L Normal 136-145 [facility] Comment on above: Performed By: #### C MP, CBC ####[address] [address] [facility] Urea nitrogen [Mass/Vol] 13 mg/dL Normal 7-25 [facility] Comment on above: Performed By: #### C MP, CBC ####[facility] [address] [place] [id number] [facility] CT angio chest PE protocolon 05-14-2023 CT angio chest PE protocol [facility] [place] [address] [place] [id number] Scan Report Signed Patient: Cinthia Guerrero MR#: [id number] : 1960 Acct:[id number] Age/Sex: 62 / F ADM Date: 05/14/23 Loc: Room: [address] [place] [address] Type: ADM IN Attending Dr: Cassandra Andersen [...] Wong Byrd M.D.05/14/2023 8:07 AM Dictation Location: [place] [address] Transcribed By: [facility] 05/14/23806 Dictated By: Wong Byrd DO 05/14/23801 Signed By: 05/14/23806 Normal [facility] B-Type Natriuretic Peptideon 05-13-2023 Natriuretic peptide B (Bld) [Mass/Vol] 25.0 pg/mL Normal 5-100 [facility] Comment on above: Result Comment: PERF ORMED BY: [facility] [address] [place] [address] PATHOLOGIST HEAD OF ICT JASMEET LIN M.D. Performed By: #### B GRATED CHEESE MAKER #### [address] COVID-19 / Flu A/B / RSV PCR on 05-13-2023 SARS-CoV-2 (COVID-19) RNA RKUNAL+probe Ql (Unsp spec) COVID-19 Cepheid Result Negative [...] or Cepheid Disclaimer revoked sooner. PERFORMED BY: [address] [place] [id number] PATHOLOGIST HEAD OF ICT JASMEET LIN M.D. Normal [facility] Comment on above: Performed By: #### C OVID19 FLU RSV, CEPHEID NEG ####[address] [address] [facility] Cepheid COVID PCR Negativeon 05-13-2023 SARS-CoV-2 (COVID-19) RNA KRUNAL+probe Ql (Unsp spec) Negative Normal Negative [facility] Comment on above: Result Comment: This is a duplicate Cepheid Xpert Xpress CoV-2/Flu/RSV Plus RNA by RT-PCR result to be used for statistical tracking purpose only. PERFORMED BY: [address] [place] [id number] PATHOLOGIST HEAD OF ICT JASMEET LIN M.D. Performed By: #### C OVID19 FLU RSV, CEPHEID NEG ####[address] [address] [facility] Complete Blood Count Auto Di ffon 05-13-2023 Basophils (Bld) [#/Vol] 0.0 10*3/uL Normal 0.0-0.2 [facility] Comment on above: Result Comment: PERF ORMED BY: [address] [place] [id number] PATHOLOGIST HEAD OF ICT JASMEET LIN M.D. Performed By: #### H S TROP, TSH3 wRFLX, CMP, CBC #### [address] Basophils/100 WBC (Bld) 0.4 % Normal . [facility] Comment on above: Performed By: #### H S TROP, TSH3 wRFLX, CMP, CBC #### [address] Eosinophils (Bld) [#/Vol] 0.0 10*3/uL Normal 0.0-0.45 [facility] Comment on above: Performed By: #### H S TROP, TSH3 wRFLX, CMP, CBC #### [address] Eosinophils/100 WBC (Bld) 0.1 % Normal . [facility] Comment on above: Performed By: #### H S TROP, TSH3 wRFLX, CMP, CBC #### [address] Erythrocyte distribution width (RBC) [Ratio] 13.5 % Normal 11.9-15.3 [facility] Comment on above: Performed By: #### H S TROP, TSH3 wRFLX, CMP, CBC #### [address] Hematocrit (Bld) [Volume fraction] 44.7 % Normal 34.0-46.4 [facility] Comment on above: Performed By: #### H S TROP, TSH3 wRFLX, CMP, CBC #### [address] Hemoglobin (Bld) [Mass/Vol] 14.9 g/dL Normal 11.8-15.4 [facility] Comment on above: Performed By: #### H S TROP, TSH3 wRFLX, CMP, CBC #### [address] Lymphocytes (Bld) [#/Vol] 1.4 10*3/uL Normal 1.00-4.8 [facility] Comment on above: Performed By: #### H S TROP, TSH3 wRFLX, CMP, CBC #### [address] Lymphocytes/100 WBC (Bld) 14.2 % Normal . [facility] Comment on above: Performed By: #### H S TROP, TSH3 wRFLX, CMP, CBC #### [address] MCH (RBC) [Entitic mass] 28.4 pg Normal 24.7-34.3 [facility] Comment on above: Performed By: #### H S TROP, TSH3 wRFLX, CMP, CBC #### [address] MCV (RBC) [Entitic vol] 85.1 fL Normal 80-100 [facility] Comment on above: Performed By: #### H S TROP, TSH3 wRFLX, CMP, CBC #### [address] Mean Corpuscular HGB Conc 33.4 g/dL Normal 32.0-35.0 [facility] Comment on above: Performed By: #### H S TROP, TSH3 wRFLX, CMP, CBC #### [address] Monocytes (Bld) [#/Vol] 0.8 10*3/uL Normal 0.0-0.8 [facility] Comment on above: Performed By: #### H S TROP, TSH3 wRFLX, CMP, CBC #### [place] [address] [place] Monocytes/100 WBC (Bld) 17.56 % Normal 0.00-20.00 [facility] Comment on above: Performed By: #### H S TROP, TSH3 wRFLX, CMP, CBC #### [address] Monocytes/100 WBC (Bld) 7.6 % Normal . [facility] Comment on above: Performed By: #### H S TROP, TSH3 wRFLX, CMP, CBC #### [facility] [address] [place] [address] Neutrophils (Bld) [#/Vol] 7.9 10*3/uL High 1.8-7.7 [facility] Comment on above: Performed By: #### H S TROP, TSH3 wRFLX, CMP, CBC #### [address] Neutrophils/100 WBC (Bld) 77.7 % Normal . [facility] Comment on above: Performed By: #### H S TROP, TSH3 wRFLX, CMP, CBC #### [address] NRBC% 0.1 /100{WBC} Normal 0-0.5 [facility] Comment on above: Performed By: #### H S TROP, TSH3 wRFLX, CMP, CBC #### [address] Platelet mean volume (Bld) [Entitic vol] 7.4 fL Normal 6.3-10.7 [facility] Comment on above: Performed By: #### H S TROP, TSH3 wRFLX, CMP, CBC #### [address] Platelets (Bld) [#/Vol] 405 10*3/uL Normal 150-450 [facility] Comment on above: Performed By: #### H S TROP, TSH3 wRFLX, CMP, CBC #### [address] RBC (Bld) [#/Vol] 5.25 10*6/uL High 3.60-5.00 [facility] Comment on above: Performed By: #### H S TROP, TSH3 wRFLX, CMP, CBC #### [address] WBC (Bld) [#/Vol] 10.2 10*3/uL Normal 3.8-11.6 [facility] Comment on above: Performed By: #### H S TROP, TSH3 wRFLX, CMP, CBC #### [facility] [address] Comprehensive Metabolic Pane [place] 05-13-2023 Albumin [Mass/Vol] 4.2 g/dL Normal 3.5-5.7 [facility] Comment on above: Performed By: #### H S TROP, TSH3 wRFLX, CMP, CBC #### [facility] [address] Albumin/Globulin [Mass ratio] 1.2 {ratio} Normal [facility] Comment on above: Performed By: #### H S TROP, TSH3 wRFLX, CMP, CBC #### [address] ALP [Catalytic activity/Vol] 79 U/L Normal 34-104 [facility] Comment on above: Performed By: #### H S TROP, TSH3 wRFLX, CMP, CBC #### [address] ALT [Catalytic activity/Vol] 15 U/L Normal 7-52 [facility] Comment on above: Performed By: #### H S TROP, TSH3 wRFLX, CMP, CBC #### [address] Anion gap [Moles/Vol] 12.3 mmol/L Normal 6.0-15.0 [facility] Comment on above: Performed By: #### H S TROP, TSH3 wRFLX, CMP, CBC #### [address] AST [Catalytic activity/Vol] 17 U/L Normal 13-39 [facility] Comment on above: Performed By: #### H S TROP, TSH3 wRFLX, CMP, CBC #### [address] Bilirubin [Mass/Vol] 0.3 mg/dL Normal 0.3-1.0 [facility] Comment on above: Performed By: #### H S TROP, TSH3 wRFLX, CMP, CBC #### [facility] [address] Calcium [Mass/Vol] 10.0 mg/dL Normal 8.6-10.3 [facility] Comment on above: Performed By: #### H S TROP, TSH3 wRFLX, CMP, CBC #### [facility] [address] Chloride [Moles/Vol] 89 mmol/L Low 98-107 [facility] Comment on above: Performed By: #### H S TROP, TSH3 wRFLX, CMP, CBC #### [facility] [address] [place] [address] CO2 [Moles/Vol] 41.7 mmol/L High 21.0-31.0 [facility] Comment on above: Performed By: #### H S TROP, TSH3 wRFLX, CMP, CBC #### [facility] [address] [place] [address] Creatinine [Mass/Vol] 0.47 mg/dL Low 0.60-1.20 [facility] Comment on above: Performed By: #### H S TROP, TSH3 wRFLX, CMP, CBC #### [facility] [address] [place] [address] [place] Creatinine Clr Calc Pharmacy 80.11 [facility] Comment on above: Result Comment: PERF ORMED BY: [place] [address] PATHOLOGIST HEAD OF ICT JASMEET LIN M.D. Performed By: #### H S TROP, TSH3 wRFLX, CMP, CBC #### [facility] [address] [place] [address] [place] GFR/1.73 sq M.predicted MDRD (S/P/Bld) [Vol rate/Area] mL/min/{1.73_m2} [facility] Comment on above: Performed By: #### H S TROP, TSH3 wRFLX, CMP, CBC #### [facility] [address] [place] [address] [place] Globulin (S) [Mass/Vol] 3.5 g/dL Normal [facility] Comment on above: Performed By: #### H S TROP, TSH3 wRFLX, CMP, CBC #### [address] Glucose [Mass/Vol] 104 mg/dL High 70-100 [facility] Comment on above: Result Comment: [place] Glucose Reference Range is dependent on time and content of last meal. Glucose of more than 200 mg/dL in a nonstressed, ambulatory subject supports the diagnosis of Diabetes Mellitus. ADA recommended reference range Performed By: #### H S TROP, TSH3 wRFLX, CMP, CBC #### [address] Potassium [Moles/Vol] 4.0 mmol/L Normal 3.5-5.1 [facility] Comment on above: Performed By: #### H S TROP, TSH3 wRFLX, CMP, CBC #### [address] Protein [Mass/Vol] 7.7 g/dL Normal 6.4-8.9 [facility] Comment on above: Performed By: #### H S TROP, TSH3 wRFLX, CMP, CBC #### [address] Sodium [Moles/Vol] 139 mmol/L Normal 136-145 [facility] Comment on above: Performed By: #### H S TROP, TSH3 wRFLX, CMP, CBC #### [address] Urea nitrogen [Mass/Vol] 13 mg/dL Normal 7-25 [facility] Comment on above: Performed By: #### H S TROP, TSH3 wRFLX, CMP, CBC #### [address] ECG 12 lead ECGon 05-13-2023 ECG 12 lead ECG [facility] [place] [address] [place] [address] Electrocardiograph Report Signed Patient: Cinthia Guerrero MR#: [id number] 881 : 1960 Acct:[id number] Age/Sex: 62 / F ADM Date: 05/13/23 [...] be normal variant artifact Confirmed by Kd Carver DO ([id number]) on 05/13/2023 7:17:32 PM Referred By: Electronically Signed By:Kd Carver DO Transcribed By: MUS Signed By Kd Carver DO [id number] Normal [facility] Thyroid Stim Hormone w/Rflxo n 05-13-2023 Thyroid Stim Hormone w/Rflx 0.89 u[iU]/mL Normal 0.45-5.33 [facility] Comment on above: Result Comment: PERF ORMED BY: [place] [address] PATHOLOGIST HEAD OF ICT JASMEET LIN M.D. Performed By: #### H S TROP, TSH3 wRFLX, CMP, CBC #### [facility] [address] [place], [place] [id number] [facility] Troponin I High Sensitivityo n 05-13-2023 Troponin I High Sensitivity 3.4 pg/mL Normal 0.0-15.0 [facility] Comment on above: Result Comment: PERF ORMED BY: [place] [address] PATHOLOGIST HEAD OF ICT JASMEET LIN M.D. Performed By: #### H S TROP #### [facility] [address] [place] [address] [facility] Troponin I High Sensitivity 3.9 pg/mL Normal 0.0-15.0 [facility] Comment on above: Result Comment: PERF ORMED BY: [place] [address] PATHOLOGIST HEAD OF ICT JASMEET LIN M.D. Performed By: #### H S TROP, TSH3 wRFLX, CMP, CBC #### [address] XR chest 2V*on 05-13-2023 XR chest 2V* [facility] [place] [address] [place] [address] XRay Report Signed Patient: Cinthia Guerrero MR#: [id number] 881 : 1960 Acct:[id number] Age/Sex: 62 / F ADM Date: 05/13/23 Loc: ER Room: Type: [facility] ER Attending Dr: Copies to: Stacia [...] Wong Byrd M.D.05/13/2023 8:53 PM Dictation Location: [place] [address] Transcribed By: [facility] 05/13/232052 Dictated By: Wong Byrd DO 05/13/232051 Signed By: 05/13/232052 Normal [facility] CULTURE BLOODon 09-07-2022 Microscopic examination of blood, [...] Trimethoprim/Sulfameth oxazole 20 S F Normal [facility] Comment on above: Performed By: #### B LDCX1 #### [facility] [address] [place] [address] Dr. Geri Pradhan CBC AUTO DIFFon 09-05-2022 BASO # 0.0 103/ul Normal 0.0-0.1 [facility] Comment on above: Performed By: #### C BC #### [facility] [address] [place] [address] Dr. Geri Pradhan Basophils/100 WBC (Bld) 0.2 % Normal 0.2-2.0 [facility] Comment on above: Performed By: #### C BC #### [facility] [address] [place] [address] Dr. Geri Pradhan EO # 0.0 103/ul Normal 0.0-0.7 [facility] Comment on above: Performed By: #### C BC #### [facility] [address] [place] [address] Dr. Geri Pradhan Eosinophils/100 WBC (Bld) 0.0 % Critically low 0.9-7.0 [facility] Comment on above: Performed By: #### C BC #### [facility] [address] [place] [address] Dr. Geri Pradhan Erythrocyte distribution width (RBC) [Ratio] 13.8 % Normal 11.0-15.0 [facility] Comment on above: Performed By: #### C BC #### [facility] [address] [place] [address] Dr. Geri Pradhan Hematocrit (Bld) [Volume fraction] 38.8 % Normal 36.0-48.0 [facility] Comment on above: Performed By: #### C BC #### [facility] [address] [place] [address] [address] Geri Pradhan Hemoglobin (Bld) [Mass/Vol] 11.7 g/dL Critically low 12.0-16.0 [facility] Comment on above: Performed By: #### C BC #### [facility] [address] [place] [address] [address] Geri Pradhan IG # 0.27 10e3/ul Critically high 0.00-0.03 [facility] Comment on above: Performed By: #### C BC #### [facility] [address] [place] [address] Dr. Geri Pradhan IG % 2.9 % Critically high 0.0-0.5 [facility] Comment on above: Performed By: #### C BC #### [facility] [address] [place] [address] Dr. Geri Pradhan LYMPH # 0.4 103/ul Critically low 1.2-3.8 [facility] Comment on above: Performed By: #### C BC #### [facility] [address] [place] [address] Dr. Geri Pradhan Lymphocytes/100 WBC (Bld) 4.4 % Critically low 20.5-60.0 [facility] [facility] Comment on above: Performed By: #### C BC #### [facility] [address] [place] [address] Dr. Geri Pradhan MANUAL DIFF REQ NO Normal [facility] Comment on above: Performed By: #### C BC #### [facility] [address] [place] [address] Dr. Geri Pradhan MCH (RBC) [Entitic mass] 26.8 pg Normal 26.7-34.0 [facility] Comment on above: Performed By: #### C BC #### [facility] [address] [place] [address] Dr. Geri Pradhan MCHC (RBC) [Mass/Vol] 30.2 g/dL Normal 29.9-35.2 [facility] Comment on above: Performed By: #### C BC #### [facility] [address] [address] [address] Geri Pradhan MCV (RBC) [Entitic vol] 88.8 fL Normal 81.0-99.0 [facility] Comment on above: Performed By: #### C BC #### [facility] [address] [address] [address] Geri Pradhan MONO # 0.3 103/ul Normal 0.3-0.8 [facility] Comment on above: Performed By: #### C BC #### [facility] [address] [address] [address] Geri Pradhan Monocytes/100 WBC (Bld) 3.6 % Normal 1.7-12.0 [facility] Comment on above: Performed By: #### C BC #### [facility] [address] [address] [address] Geri Pradhan NEUT # 8.2 103/ul Critically high 1.4-6.5 [facility] Comment on above: Performed By: #### C BC #### [facility] [address] [address] [address] Geri Pradhan Neutrophils/100 WBC (Bld) 88.9 % Critically high 43.0-75.0 [facility] Comment on above: Performed By: #### C BC #### [facility] [address] [address] [address] Geri Pradhan Platelet mean volume (Bld) [Entitic vol] 9.1 fL Critically low 9.5-13.5 [facility] Comment on above: Performed By: #### C BC #### [facility] [address] [address] [address] Geri Pradhan PLT 314 103/ul Normal 150-450 [facility] Comment on above: Performed By: #### C BC #### [facility] [address] [address] [address] Geri Pradhan RBC 4.37 106/ul Normal 4.20-5.40 [facility] Comment on above: Performed By: #### C BC #### [facility] [address] [address] [address] Geri Pradhan WBC 9.2 103/ul Normal 4.0-11.0 [facility] Comment on above: Performed By: #### C BC #### [facility] [address] [address] [address] Geri Pradhan PROF 14(COMP METB)on 023 Albumin [Mass/Vol] 2.7 g/dL Critically low 3.4-5.0 [facility] Comment on above: Performed By: #### Gerry INGRAM, CMP #### [facility] [address] [address] [address] Geri Pradhan Albumin/Globulin [Mass ratio] 0.7 {ratio} Normal [facility] Comment on above: Performed By: #### Gerry INGRAM, CMP #### [facility] [address] [place] [address] Dr. Geri Pradhan ALP [Catalytic activity/Vol] 65 U/L Normal 46-116 [facility] Comment on above: Performed By: #### Gerry INGRAM, CMP #### [facility] [address] [address] [address] Geri Pradhan ALT [Catalytic activity/Vol] 23 U/L Normal 14-59 [facility] Comment on above: Performed By: #### Gerry INGRAM, CMP #### [facility] [address] [address] [address] Geri Pradhan Anion gap [Moles/Vol] 2.0 mmol/L Normal [facility] Comment on above: Performed By: #### Gerry INGRAM, CMP #### [facility] [address] [address] [address] Geri Pradhan AST [Catalytic activity/Vol] 17 U/L Normal 15-37 [facility] Comment on above: Performed By: #### Gerry INGRAM, CMP #### [facility] [address] [place] [address] Dr. Geri Pradhan Bilirubin [Mass/Vol] 0.1 mg/dL Critically low 0.2-1.0 [facility] Comment on above: Performed By: #### Gerry INGRAM, CMP #### [facility] [address] [address] [address] Geri Pradhan Calcium [Mass/Vol] 9.0 mg/dL Normal 8.5-10.1 [facility] Comment on above: Performed By: #### Gerry INGRAM, CMP #### [facility] [address] [address] [address] Geri Pradhan Chloride [Moles/Vol] 99 mmol/L Normal 98-107 [facility] Comment on above: Performed By: #### Gerry INGRAM, CMP #### [facility] [address] [address] [address] Geri Pradhan CO2 [Moles/Vol] 45.3 mmol/L Critically high 21.0-32.0 [facility] Comment on above: Performed By: #### Gerry INGRAM, CMP #### [facility] [address] [place] [address] Dr. Geri Pradhan Creatinine [Mass/Vol] 0.50 mg/dL Critically low 0.55-1.02 [facility] Comment on above: Performed By: #### Gerry INGRAM, CMP #### [facility] [address] [place] [address] Dr. Geri Pradhan EGFR-AF ITALIAN >60 Normal >=60 [facility] Comment on above: Performed By: #### Gerry INGRAM, CMP #### [facility] [address] [address] [address] Geri Pradhan EGFR-NON AF ITALIAN >60 Normal >=60 [facility] Comment on above: Performed By: #### Gerry INGRAM, CMP #### [facility] [address] [address] [address] Geri Pradhan Globulin (S) [Mass/Vol] 3.7 g/dL Normal [facility] Comment on above: Performed By: #### Gerry INGRAM, CMP #### [facility] [address] [address] [address] Geri Pradhan Glucose [Mass/Vol] 180 mg/dL Critically high 74-106 [facility] Comment on above: Performed By: #### Gerry INGRAM, CMP #### [facility] [address] [place] [address] Dr. Geri Pradhan Potassium [Moles/Vol] 4.3 mmol/L Normal 3.5-5.1 [facility] Comment on above: Performed By: #### Gerry INGRAM, CMP #### [facility] [address] [place] [address] Dr. Geri Pradhan Protein [Mass/Vol] 6.4 g/dL Normal 6.4-8.2 [facility] Comment on above: Performed By: #### Gerry INGRAM, CMP #### [facility] [address] [place] [address] Dr. Geri Pradhan Sodium [Moles/Vol] 142 mmol/L Normal 136-145 [facility] Comment on above: Performed By: #### Gerry INGRAM, CMP #### [facility] [address] [place] [address] Dr. Geri Pradhan Urea nitrogen [Mass/Vol] 13.0 mg/dL Normal 7.0-18.0 [facility] Comment on above: Performed By: #### Gerry INGRAM, CMP #### [facility] [address] [place] [address] Dr. Geri Pradhan Urea nitrogen/Creatinine [Mass ratio] 26.0 mg/mg Normal [facility] Comment on above: Performed By: #### Gerry INGRAM, CMP #### [facility] [address] [place] [address] Dr. Geri Pradhan THEOPHYLLINEon 09-05-2022 THEOPHYLLINE <2.0 Critically low 10.0-20.0 [facility] Comment on above: Performed By: #### Gerry INGRAM, CMP #### [facility] [address] [place] [address] Dr. Geri Pradhan CBC AUTO DIFFon 09-04-2022 BASO # 0.0 103/ul Normal 0.0-0.1 [facility] Comment on above: Performed By: #### R SPLUS #### [facility] [address] [place] [address] Dr. Geri Pradhan Basophils/100 WBC (Bld) 0.1 % Critically low 0.2-2.0 [facility] Comment on above: Performed By: #### R SPLUS #### [facility] [address] [address] [address] Geri Pradhan EO # 0.0 103/ul Normal 0.0-0.7 [facility] Comment on above: Performed By: #### R SPLUS #### [facility] [address] [address] [address] Geri Pradhan Eosinophils/100 WBC (Bld) 0.0 % Critically low 0.9-7.0 [facility] Comment on above: Performed By: #### R SPLUS #### [facility] [address] [place] [address] Dr. Geri Pradhan Erythrocyte distribution width (RBC) [Ratio] 13.4 % Normal 11.0-15.0 [facility] Comment on above: Performed By: #### R SPLUS #### [facility] [address] [place] [address] Dr. Geri Pradhan Hematocrit (Bld) [Volume fraction] 42.8 % Normal 36.0-48.0 [facility] Comment on above: Performed By: #### R SPLUS #### [facility] [address] [place] [address] Dr. Geri Pradhan Hemoglobin (Bld) [Mass/Vol] 12.8 g/dL Normal 12.0-16.0 [facility] Comment on above: Performed By: #### R SPLUS #### [facility] [address] [place] [address] Dr. Geri Pradhan IG # 0.25 10e3/ul Critically high 0.00-0.03 [facility] Comment on above: Performed By: #### R SPLUS #### [facility] [address] [place] [address] Dr. Geri Pradhan IG % 2.0 % Critically high 0.0-0.5 [facility] Comment on above: Performed By: #### R SPLUS #### [facility] [address] [address] [address] Geri Pradhan LYMPH # 0.4 103/ul Critically low 1.2-3.8 [facility] Comment on above: Performed By: #### R SPLUS #### [facility] [address] [address] [address] Geri Prahdan Lymphocytes/100 WBC (Bld) 3.6 % Critically low 20.5-60.0 [facility] Comment on above: Performed By: #### R SPLUS #### [facility] [address] [address] [address] Geri Pradhan MANUAL DIFF REQ NO Normal [facility] Comment on above: Performed By: #### R SPLUS #### [facility] [address] [address] [address] Geri Pradhan MCH (RBC) [Entitic mass] 26.8 pg Normal 26.7-34.0 [facility] Comment on above: Performed By: #### R SPLUS #### [facility] [address] [place] [address] Dr. Geri Pradhan MCHC (RBC) [Mass/Vol] 29.9 g/dL Normal 29.9-35.2 [facility] Comment on above: Performed By: #### R SPLUS #### [facility] [address] [place] [address] Dr. Geri Pradhan MCV (RBC) [Entitic vol] 89.5 fL Normal 81.0-99.0 [facility] Comment on above: Performed By: #### R SPLUS #### [facility] [address] [place] [address] Dr. Geri Pradhan MONO # 0.2 103/ul Critically low 0.3-0.8 [facility] Comment on above: Performed By: #### R SPLUS #### [facility] [address] [place] [address] Dr. Geri Pradhan Monocytes/100 WBC (Bld) 1.9 % Normal 1.7-12.0 [facility] Comment on above: Performed By: #### R SPLUS #### [facility] [address] [address] [address] Geri Pradhan NEUT # 11.4 103/ul Critically high 1.4-6.5 [facility] Comment on above: Performed By: #### R SPLUS #### [facility] [address] [address] [address] Geri Pradhan Neutrophils/100 WBC (Bld) 92.4 % Critically high 43.0-75.0 [facility] Comment on above: Performed By: #### R SPLUS #### [facility] [address] [address] [address] Geri Pradhan Platelet mean volume (Bld) [Entitic vol] 8.9 fL Critically low 9.5-13.5 [facility] Comment on above: Performed By: #### R SPLUS #### [facility] [address] [address] [address] Geri Pradhan PLT 350 103/ul Normal 150-450 [facility] Comment on above: Performed By: #### R SPLUS #### [facility] [address] [address] [address] Geri Pradhan RBC 4.78 106/ul Normal 4.20-5.40 [facility] Comment on above: Performed By: #### R SPLUS #### [facility] [address] [address] [address] Geri Pradhan WBC 12.3 103/ul Critically high 4.0-11.0 [facility] Comment on above: Performed By: #### R SPLUS #### [facility] [address] [address] [address] Geri Pradhan POINT OF CARE GLUCOSEon 05-2 Glucose [Mass/Vol] 142 mg/dL Critically high 74-106 [facility] Comment on above: Performed By: #### P OCGLUC #### [facility] [address] [address] [address] Geri Pradhan Glucose [Mass/Vol] 198 mg/dL Critically high 74-106 [facility] Comment on above: Performed By: #### T JUAN JOSE, CMP #### [facility] [address] [address] [address] Geri Pradhan Glucose [Mass/Vol] 147 mg/dL Critically high 74-106 [facility] Comment on above: Performed By: #### Gerry INGRAM, CMP #### [facility] [address] [address] [address] Geri Pradhan PROF 14(COMP METB)on 023 Albumin [Mass/Vol] 2.9 g/dL Critically low 3.4-5.0 [facility] Comment on above: Performed By: #### Gerry INGRAM, CMP #### [facility] [address] [address] [address] Geri Pradhan Albumin/Globulin [Mass ratio] 0.7 {ratio} Normal [facility] Comment on above: Performed By: #### Gerry INGRAM, CMP #### [facility] [address] [place] [address] Dr. Geri Pradhan ALP [Catalytic activity/Vol] 73 U/L Normal 46-116 [facility] Comment on above: Performed By: #### Gerry INGRAM, CMP #### [facility] [address] [address] [address] Geri Pradhan ALT [Catalytic activity/Vol] 24 U/L Normal 14-59 [facility] Comment on above: Performed By: #### Gerry INGRAM, CMP #### [facility] [address] [address] [address] Geri Pradhan Anion gap [Moles/Vol] 3.2 mmol/L Normal [facility] Comment on above: Performed By: #### Gerry INGRAM, CMP #### [facility] [address] [address] [address] Geri Pradhan AST [Catalytic activity/Vol] 17 U/L Normal 15-37 [facility] Comment on above: Performed By: #### Gerry INGRAM, CMP #### [facility] [address] [address] [address] Geri Pradhan Bilirubin [Mass/Vol] 0.1 mg/dL Critically low 0.2-1.0 [facility] Comment on above: Performed By: #### Gerry INGRAM, CMP #### [facility] [address] [address] [address] Geri Pradhan Calcium [Mass/Vol] 9.4 mg/dL Normal 8.5-10.1 [facility] Comment on above: Performed By: #### Gerry INGRAM, CMP #### [facility] [address] [place] [address] Dr. Geri Pradhan Chloride [Moles/Vol] 100 mmol/L Normal 98-107 [facility] Comment on above: Performed By: #### Gerry INGRAM, CMP #### [facility] [address] [address] [address] Geri Pradhan CO2 [Moles/Vol] 43.2 mmol/L Critically high 21.0-32.0 [facility] Comment on above: Performed By: #### Gerry INGRAM, CMP #### [facility] [address] [place] [address] Dr. Geri Pradhan Creatinine [Mass/Vol] 0.52 mg/dL Critically low 0.55-1.02 [facility] Comment on above: Performed By: #### Gerry INGRAM, CMP #### [facility] [address] [place] [address] Dr. Geri Pradhan EGFR-AF ITALIAN >60 Normal >=60 [facility] Comment on above: Performed By: #### Gerry INGRAM, CMP #### [facility] [address] [place] [address] Dr. Geri Pradhan EGFR-NON AF ITALIAN >60 Normal >=60 [facility] Comment on above: Performed By: #### Gerry INGRAM, CMP #### [facility] [address] [place] [address] Dr. Geri Pradhan Globulin (S) [Mass/Vol] 4.2 g/dL Normal [facility] Comment on above: Performed By: #### Gerry INGRAM, CMP #### [facility] [address] [place] [address] Dr. Geri Pradhan Glucose [Mass/Vol] 138 mg/dL Critically high 74-106 [facility] Comment on above: Performed By: #### Gerry ESCALANTEO, CMP #### [facility] [address] [place] [address] Dr. Geri Pradhan Potassium [Moles/Vol] 4.4 mmol/L Normal 3.5-5.1 [facility] Comment on above: Performed By: #### Gerry INGRAM, CMP #### [facility] [address] [place] [address] Dr. Geri Pradhan Protein [Mass/Vol] 7.1 g/dL Normal 6.4-8.2 [facility] Comment on above: Performed By: #### T JUAN JOSE, CMP #### [facility] [address] [place] [address] Dr. Geri Pradhan Sodium [Moles/Vol] 142 mmol/L Normal 136-145 [facility] Comment on above: Performed By: #### Gerry INGRAM, CMP #### [facility] [address] [place] [address] Dr. Geri Pradhan Urea nitrogen [Mass/Vol] 15.0 mg/dL Normal 7.0-18.0 [facility] Comment on above: Performed By: #### Gerry INGRAM, CMP #### [facility] [address] [place] [address] Dr. Geri Pradhan Urea nitrogen/Creatinine [Mass ratio] 28.8 mg/mg Normal [facility] Comment on above: Performed By: #### Gerry INGRAM, CMP #### [facility] [address] [place] [address] Dr. Geri Pradhan RESPIRATORY PANEL PLUSon Adenovirus Not detected Normal NOT DETECTED [facility] Comment on above: Performed By: #### R SPLUS #### [facility] [address] [place] [address] Dr. Geri Pradhan B. Parapertusis Not detected Normal NOT DETECTED [facility] Comment on above: Performed By: #### R SPLUS #### [facility] [address] [place] [address] Dr. Geri Pradhan B. Pertussis Not detected Normal NOT DETECTED [facility] Comment on above: Performed By: #### R SPLUS #### [facility] [address] [place] [address] Dr. Geri Pradhan Chlamydia Pneumoniae Not detected Normal NOT DETECTED [facility] Comment on above: Performed By: #### R SPLUS #### [facility] [address] [place] [address] Dr. Geri Pradhan Coronavirus 229E Not detected Normal NOT DETECTED [facility] Comment on above: Performed By: #### R SPLUS #### [facility] [address] [place] [address] Dr. Geri Pradhan Coronavirus HKU1 Not detected Normal NOT DETECTED [facility] Comment on above: Performed By: #### R SPLUS #### [facility] [address] [place] [address] Dr. Geri Pradhan Coronavirus NL63 Not detected Normal NOT DETECTED [facility] Comment on above: Performed By: #### R SPLUS #### [facility] [address] [place] [address] Dr. Geri Pradhan Coronavirus OC43 Not detected Normal NOT DETECTED [facility] Comment on above: Performed By: #### R SPLUS #### [facility] [address] [place] [address] Dr. Geri Pradhan Influenza A H1 Not detected Normal NOT DETECTED [facility] Comment on above: Performed By: #### R SPLUS #### [facility] [address] [place] [address] Dr. Geri Pradhan Influenza A H1 2009 Not detected Normal NOT DETECTED T [facility] Comment on above: Performed By: #### R SPLUS #### [facility] [address] [place] [address] Dr. Geri Pradhan Influenza A H3 Not detected Normal NOT DETECTED [facility] Comment on above: Performed By: #### R SPLUS #### [facility] [address] [place] [address] Dr. Geri Pradhan Influenza B Not detected Normal NOT DETECTED [facility] Comment on above: Performed By: #### R SPLUS #### [facility] [address] [place] [address] Dr. Geri Pradhan Metapneumovirus Not detected Normal NOT DETECTED [facility] Comment on above: Performed By: #### R SPLUS #### [facility] [address] [place] [address] Dr. Geri Pradhan Mycoplas. Pneumoniae Not detected Normal NOT DETECTED [facility] Comment on above: Performed By: #### R SPLUS #### [facility] [address] [place] [address] Dr. Geri Pradhan Parainfluenza 1 Not detected Normal NOT DETECTED [facility] Comment on above: Performed By: #### R SPLUS #### [facility] [address] [place] [address] Dr. Geri Pradhan Parainfluenza 2 Not detected Normal NOT DETECTED [facility] Comment on above: Performed By: #### R SPLUS #### [facility] [address] [place] [address] Dr. Geri Pradhan Parainfluenza 3 Detected Abnormal NOT DETECTED [facility] Comment on above: Performed By: #### R SPLUS #### [facility] [address] [place] [address] Dr. Geri Pradhan Parainfluenza 4 Not detected Normal NOT DETECTED [facility] Comment on above: Performed By: #### R SPLUS #### [facility] [address] [place] [address] Dr. Geri Pradhan Rhino/Enterovirus Not detected Normal NOT DETECTED [facility] Comment on above: Performed By: #### R SPLUS #### [facility] [address] [place] [address] Dr. Geri Pradhan RP2 Header 1 RESPIRATORY PANEL: VIRUSES Normal [facility] Comment on above: Performed By: #### R SPLUS #### [facility] [address] [place] [address] Dr. Geri Pradhan RP2 Header 2 RESPIRATORY PANEL: BACTERIA Normal [facility] Comment on above: Performed By: #### R SPLUS #### [facility] [address] [place] [address] Dr. Geri Pradhan RSV Not detected Normal NOT DETECTED [facility] Comment on above: Performed By: #### R SPLUS #### [facility] [address] [place] [address] Dr. Geri Pradhan SARS-CoV-2 (COVID-19) RNA KRUNAL+probe Ql (Unsp spec) Not detected Normal NOT DETECTED [facility] Comment on above: Performed By: #### R SPLUS #### [facility] [address] [place] [address] Dr. Geri Pradhan THEOPHYLLINEon 09-04-2022 THEOPHYLLINE <2.0 Critically low 10.0-20.0 [facility] Comment on above: Performed By: #### T JUAN JOSE, CMP #### [facility] [address] [place] [address] Dr. Geri Pradhan CBC AUTO DIFFon 09-03-2022 BASO # 0.0 103/ul Normal 0.0-0.1 [facility] Comment on above: Performed By: #### P OCGLUC #### [facility] [address] [place] [address] Dr. Geri Pradhan Basophils/100 WBC (Bld) 0.1 % Critically low 0.2-2.0 [facility] Comment on above: Performed By: #### P OCGLUC #### [facility] [address] [place] [address] Dr. Geri Pradhan EO # 0.0 103/ul Normal 0.0-0.7 [facility] Comment on above: Performed By: #### P OCGLUC #### [facility] [address] [place] [address] Dr. Geri Pradhan Eosinophils/100 WBC (Bld) 0.0 % Critically low 0.9-7.0 [facility] Comment on above: Performed By: #### P OCGLUC #### [facility] [address] [place] [address] Dr. Geri Pradhan Erythrocyte distribution width (RBC) [Ratio] 13.0 % Normal 11.0-15.0 [facility] Comment on above: Performed By: #### P OCGLUC #### [facility] [address] [place] [address] Dr. Geri Pradhan Hematocrit (Bld) [Volume fraction] 42.1 % Normal 36.0-48.0 [facility] Comment on above: Performed By: #### P OCGLUC #### [facility] [address] [address] [address] Geri Pradhan Hemoglobin (Bld) [Mass/Vol] 12.3 g/dL Normal 12.0-16.0 [facility] Comment on above: Performed By: #### P OCGLUC #### [facility] [address] [address] [address] Geri Pradhan IG # 0.13 10e3/ul Critically high 0.00-0.03 [facility] Comment on above: Performed By: #### P OCGLUC #### [facility] [address] [place] [address] Dr. Geri Pradhan IG % 1.2 % Critically high 0.0-0.5 [facility] Comment on above: Performed By: #### P OCGLUC #### [facility] [address] [place] [address] Dr. Geri Pradhan LYMPH # 0.6 103/ul Critically low 1.2-3.8 [facility] Comment on above: Performed By: #### P OCGLUC #### [facility] [address] [place] [address] Dr. Geri Pradhan Lymphocytes/100 WBC (Bld) 6.0 % Critically low 20.5-60.0 [facility] Comment on above: Performed By: #### P OCGLUC #### [facility] [address] [place] [address] Dr. Geri Pradhan MANUAL DIFF REQ NO Normal [facility] Comment on above: Performed By: #### P OCGLUC #### [facility] [address] [address] [address] Geri Pradhan MCH (RBC) [Entitic mass] 26.0 pg Critically low 26.7-34.0 [facility] Comment on above: Performed By: #### P OCGLUC #### [facility] [address] [place] [address] Dr. Geri Pradhan MCHC (RBC) [Mass/Vol] 29.2 g/dL Critically low 29.9-35.2 [facility] Comment on above: Performed By: #### P OCGLUC #### [facility] [address] [address] [address] Geri Pradhan MCV (RBC) [Entitic vol] 89.0 fL Normal 81.0-99.0 [facility] Comment on above: Performed By: #### P OCGLUC #### [facility] [address] [address] [address] Geri Pradhan MONO # 0.2 103/ul Critically low 0.3-0.8 [facility] Comment on above: Performed By: #### P OCGLUC #### [facility] [address] [address] [address] Geri Pradhan Monocytes/100 WBC (Bld) 2.0 % Normal 1.7-12.0 [facility] Comment on above: Performed By: #### P OCGLUC #### [facility] [address] [address] [address] Geri Pradhan NEUT # 9.6 103/ul Critically high 1.4-6.5 [facility] Comment on above: Performed By: #### P OCGLUC #### [facility] [address] [address] [address] Geri Pradhan Neutrophils/100 WBC (Bld) 90.7 % Critically high 43.0-75.0 [facility] Comment on above: Performed By: #### P OCGLUC #### [facility] [address] [address] [address] Geri Pradhan Platelet mean volume (Bld) [Entitic vol] 9.1 fL Critically low 9.5-13.5 [facility] Comment on above: Performed By: #### P OCGLUC #### [facility] [address] [address] [address] Geri Pradhan PLT 302 103/ul Normal 150-450 [facility] Comment on above: Performed By: #### P OCGLUC #### [facility] [address] [address] [address] Geri Pradhan RBC 4.73 106/ul Normal 4.20-5.40 [facility] Comment on above: Performed By: #### P OCGLUC #### [facility] [address] [address] [address] Geri Pradhan WBC 10.6 103/ul Normal 4.0-11.0 [facility] Comment on above: Performed By: #### P OCGLUC #### [facility] [address] [address] [address] Geri Pradhan POINT OF CARE GLUCOSEon 08-12 Glucose [Mass/Vol] 130 mg/dL Critically high 74-106 [facility] Comment on above: Performed By: #### Gerry INGRAM, CMP #### [facility] [address] [address] [address] Geri Pradhan Glucose [Mass/Vol] 217 mg/dL Critically high 74-106 [facility] Comment on above: Performed By: #### Gerry INGRAM, CMP #### [facility] [address] [address] [address] Geri Pradhan Glucose [Mass/Vol] 327 mg/dL Critically high [facility]106 [facility] Comment on above: Performed By: #### C VDTBH #### [facility] [address] [place] [address] Dr. Geri Pradhan Glucose [Mass/Vol] 146 mg/dL Critically high -106 [facility] Comment on above: Performed By: #### Gerry INGRAM, CMP #### [facility] [address] [place] [address] Dr. Geri Pradhan Glucose [Mass/Vol] 174 mg/dL Critically high -106 [facility] Comment on above: Performed By: #### Gerry INGRAM, CMP #### [facility] [address] [place] [address] Dr. Geri Pradhan PROF 14(COMP METB)on 023 Albumin [Mass/Vol] 2.9 g/dL Critically low 3.4-5.0 [facility] Comment on above: Performed By: #### P OCGLUC #### [facility] [address] [address] [address] Geri Pradhan Albumin/Globulin [Mass ratio] 0.7 {ratio} Normal [facility] Comment on above: Performed By: #### P OCGLUC #### [facility] [address] [address] [address] Geri Pradhan ALP [Catalytic activity/Vol] 74 U/L Normal 46-116 [facility] Comment on above: Performed By: #### P OCGLUC #### [facility] [address] [address] [address] Geri Pradhan ALT [Catalytic activity/Vol] 21 U/L Normal 14-59 [facility] Comment on above: Performed By: #### P OCGLUC #### [facility] [address] [address] [address] Geri Pradhan Anion gap [Moles/Vol] 4.4 mmol/L Normal [facility] Comment on above: Performed By: #### P OCGLUC #### [facility] [address] [address] [address] Geri Pradhan AST [Catalytic activity/Vol] 17 U/L Normal 15-37 [facility] Comment on above: Performed By: #### P OCGLUC #### [facility] [address] [address] [address] Geri Pradhan Bilirubin [Mass/Vol] 0.2 mg/dL Normal 0.2-1.0 [facility] Comment on above: Performed By: #### P OCGLUC #### [facility] [address] [address] [address] Geri Pradhan Calcium [Mass/Vol] 9.4 mg/dL Normal 8.5-10.1 [facility] Comment on above: Performed By: #### P OCGLUC #### [facility] [address] [address] [address] Geri Pradhan Chloride [Moles/Vol] 99 mmol/L Normal 98-107 [facility] Comment on above: Performed By: #### P OCGLUC #### [facility] [address] [address] [address] Geri Pradhan CO2 [Moles/Vol] 42.8 mmol/L Critically high 21.0-32.0 [facility] Comment on above: Performed By: #### P OCGLUC #### [facility] [address] [address] [address] Geri Pradhan Creatinine [Mass/Vol] 0.55 mg/dL Normal 0.55-1.02 [facility] Comment on above: Performed By: #### P OCGLUC #### [facility] [address] [address] [address] Geri Pradhan EGFR-AF ITALIAN >60 Normal >=60 [facility] Comment on above: Performed By: #### P OCGLUC #### [facility] [address] [place] [address] Dr. Geri Pradhan EGFR-NON AF ITALIAN >60 Normal >=60 [facility] Comment on above: Performed By: #### P OCGLUC #### [facility] [address] [address] [address] Geri Pradhan Globulin (S) [Mass/Vol] 4.4 g/dL Normal [facility] Comment on above: Performed By: #### P OCGLUC #### [facility] [address] [address] [address] Geri Pradhan Glucose [Mass/Vol] 136 mg/dL Critically high 74-106 [facility] Comment on above: Performed By: #### P OCGLUC #### [facility] [address] [address] [address] Geri Pradhan Potassium [Moles/Vol] 4.2 mmol/L Normal 3.5-5.1 [facility] Comment on above: Performed By: #### P OCGLUC #### [facility] [address] [address] [address] Geri Pradhan Protein [Mass/Vol] 7.3 g/dL Normal 6.4-8.2 [facility] Comment on above: Performed By: #### P OCGLUC #### [facility] [address] [address] [address] Geri Pradhan Sodium [Moles/Vol] 142 mmol/L Normal 136-145 [facility] Comment on above: Performed By: #### P OCGLUC #### [facility] [address] [address] [address] Geri Pradhan Urea nitrogen [Mass/Vol] 14.0 mg/dL Normal 7.0-18.0 [facility] Comment on above: Performed By: #### P OCGLUC #### [facility] [address] [address] [address] Geri Pradhan Urea nitrogen/Creatinine [Mass ratio] 25.5 mg/mg Normal [facility] Comment on above: Performed By: #### P OCGLUC #### [facility] [address] [address] [address] Geri Pradhan THEOPHYLLINEon 09-03-2022 THEOPHYLLINE <2.0 Critically low 10.0-20.0 [facility] Comment on above: Performed By: #### P OCGLUC #### [facility] [address] [place] [address] Dr. Geri Pradhan MAGNESIUMon 09-02-2022 Magnesium [Mass/Vol] 2.3 mg/dL Normal 1.8-2.4 [facility] Comment on above: Performed By: #### T JUAN JOSE, CMP #### [facility] [address] [address] [address] Geri Pradhan POINT OF CARE GLUCOSEon 08-12 Glucose [Mass/Vol] 118 mg/dL Critically high -106 [facility] Comment on above: Performed By: #### R SPLUS #### [facility] [address] [place] [address] Dr. Geri Pradhan Glucose [Mass/Vol] 263 mg/dL Critically high -106 [facility] Comment on above: Performed By: #### R SPLUS #### [facility] [address] [place] [address] Dr. Geri Pradhan Glucose [Mass/Vol] 160 mg/dL Critically high -106 [facility] Comment on above: Performed By: #### P OCGLUC #### [facility] [address] [address] [address] Geri Pradhan PROF CHEM 8 (BAS METB)on Anion gap [Moles/Vol] 5.3 mmol/L Normal [facility] Comment on above: Performed By: #### Gerry INGRAM, CMP #### [facility] [address] [place] [address] Dr. Geri Pradhan Calcium [Mass/Vol] 9.5 mg/dL Normal 8.5-10.1 [facility] Comment on above: Performed By: #### Gerry INGRAM, CMP #### [facility] [address] [address] [address] Geri Pradhan Chloride [Moles/Vol] 94 mmol/L Critically low 98-107 [facility] Comment on above: Performed By: #### Gerry INGRAM, CMP #### [facility] [address] [place] [address] Dr. Geri Pradhan CO2 [Moles/Vol] 42.5 mmol/L Critically high 21.0-32.0 [facility] Comment on above: Performed By: #### Gerry INGRAM, CMP #### [facility] [address] [place] [address] Dr. Geri Pradhan Creatinine [Mass/Vol] 0.66 mg/dL Normal 0.55-1.02 [facility] Comment on above: Performed By: #### Gerry INGRAM, CMP #### [facility] [address] [place] [address] Dr. Geri Pradhan EGFR-AF ITALIAN >60 Normal >=60 [facility] Comment on above: Performed By: #### Gerry INGRAM, CMP #### [facility] [address] [place] [address] Dr. Geri Pradhan EGFR-NON AF ITALIAN >60 Normal >=60 [facility] Comment on above: Performed By: #### Gerry INGRAM, CMP #### [facility] [address] [place] [address] Dr. Geri Pradhan Glucose [Mass/Vol] 183 mg/dL Critically high 74-106 [facility] Comment on above: Performed By: #### Gerry INGRAM, CMP #### [facility] [address] [address] [address] Geri Pradhan Potassium [Moles/Vol] 3.8 mmol/L Normal 3.5-5.1 [facility] Comment on above: Performed By: #### Gerry INGRAM, CMP #### [facility] [address] [address] [address] Geri Pradhan Sodium [Moles/Vol] 138 mmol/L Normal 136-145 [facility] Comment on above: Performed By: #### Gerry INGRAM, CMP #### [facility] [address] [address] [address] Geri Pradhan Urea nitrogen [Mass/Vol] 10.0 mg/dL Normal 7.0-18.0 [facility] Comment on above: Performed By: #### Gerry INGRAM, CMP #### [facility] [address] [place] [address] Dr. Geri Pradhan Urea nitrogen/Creatinine [Mass ratio] 15.2 mg/mg Normal [facility] Comment on above: Performed By: #### Gerry INGRAM, CMP #### [facility] [address] [place] [address] Dr. [facility] THEOPHYLLINE <2.0 Critically low 10.0-20.0 [facility] Comment on above: Performed By: #### R SPLUS #### [facility] [address] [place] [address] Dr. Geri Pradhan BLOOD CULTURE ID PANELon A. baumannii Not detected Normal NOT DETECTED [facility] Comment on above: Performed By: #### Gerry INGRAM, CMP #### [facility] [address] [place] [address] Dr. Geri Pradhan Bacteriodes fragilis Not detected Normal NOT DETECTED [facility] Comment on above: Performed By: #### Gerry INGRAM, CMP #### [facility] [address] [place] [address] Dr. Geri Pradhan BCID CONTROLS PASSED Normal [facility] Comment on above: Performed By: #### Gerry INGRAM, CMP #### [facility] [address] [address] [address] Geri GARCÍADBTHD BLOOD CULTURE BOTTLE INFORMATION [facility] Comment on above: Performed By: #### Gerry INGRAM, CMP #### [facility] [address] [address] [address] Geri Pradhan BCIDHD1 ANTIMICROBIAL RESISTANCE GENES [facility] Comment on above: Performed By: #### Gerry INGRAM, CMP #### [facility] [address] [address] [address] Geri Pradhan BCIDHD2 SEE BELOW [facility] Comment on above: Result Comment: Note : Antimicrobial resitance can occur via multiple mechanisms. A Not Detected result for the [employer] antomicrobial resistance gene assays does not indicate antimicrobial susceptibility. Subculturing is required for species identification and susceptibility testing of isolates. Performed By: #### Gerry INGRAM, CMP #### [facility] [address] [place] [address] Dr. Geri Pradhan BCIDHD3 Positive [facility] Comment on above: Performed By: #### Gerry INGRAM, CMP #### [facility] [address] [address] [address] Geri Pradhan BCIDHD4 Negative [facility] Comment on above: Performed By: #### Gerry INGRAM, CMP #### [facility] [address] [place] [address] Dr. Geri Pradhan BCIDHD5 YEAST [facility] Comment on above: Performed By: #### Gerry INGRAM, CMP #### [facility] [address] [place] [address] Dr. Geri Pradhan Bottle Set: Set 1 [facility] Comment on above: Performed By: #### Gerry INGRAM, CMP #### [facility] [address] [place] [address] Dr. Geri Pradhan Bottle: Aerobic Normal [facility] Comment on above: Performed By: #### Gerry INGRAM, CMP #### [facility] [address] [place] [address] Dr. Geri Pradhan C. neoformans/gattii Not detected Normal NOT DETECTED [facility] Comment on above: Performed By: #### T JUAN JOSE, CMP #### [facility] [address] [place] [address] Dr. Geri Pradhan Milagros albicans Not detected Normal NOT DETECTED [facility] Comment on above: Performed By: #### T JUAN JOSE, CMP #### [facility] [address] [address] [address] Geri Pradhan Milagros auris Not detected Normal NOT DETECTED [facility] Comment on above: Performed By: #### T JUAN JOSE, CMP #### [facility] [address] [place] [address] Dr. Geri Pradhan Milagros glabrata Not detected Normal NOT DETECTED [facility] Comment on above: Performed By: #### T JUAN JOSE, CMP #### [facility] [address] [place] [address] Dr. Geri Pradhan Milagros Krusei Not detected Normal NOT DETECTED [facility] Comment on above: Performed By: #### T JUAN JOSE, CMP #### [facility] [address] [place] [address] Dr. Geri Pradhan Milagros Parapsilosis Not detected Normal NOT DETECTED [facility] Comment on above: Performed By: #### T JUAN JOSE, CMP #### [facility] [address] [place] [address] Dr. Geri Pradhan Milagros Tropicalis Not detected Normal NOT DETECTED [facility] Comment on above: Performed By: #### T JUAN JOSE, CMP #### [facility] [address] [place] [address] Dr. Geri Pradhan CTX-M Resistant Gene Not Applicable Normal NOT DETECTE D [facility] Comment on above: Performed By: #### T JUAN JOSE, CMP #### [facility] [address] [place] [address] Dr. Geri Pradhan E. Cloacae complex Not detected Normal NOT DETECTED [facility] Comment on above: Performed By: #### T JUAN JOSE, CMP #### [facility] [address] [place] [address] Dr. Geri Pradhan E. faecalis Not detected Normal NOT DETECTED [facility] Comment on above: Performed By: #### T JUAN JOSE, CMP #### [facility] [address] [place] [address] Dr. Geri Pradhan E. faecium Not detected Normal NOT DETECTED [facility] Comment on above: Performed By: #### T JUAN JOSE, CMP #### [facility] [address] [address] [address] Geri Pradhan Enterobacteriaceae Not detected Normal NOT DETECTED [facility] Comment on above: Performed By: #### T JUAN JOSE, CMP #### [facility] [address] [place] [address] Dr. Geri Pradhan Escherichia coli Not detected Normal NOT DETECTED [facility] Comment on above: Performed By: #### T JUAN JOSE, CMP #### [facility] [address] [place] [address] Dr. Geri Pradhan H. influenzae Not detected Normal NOT DETECTED [facility] Comment on above: Performed By: #### T JUAN JOSE, CMP #### [facility] [address] [place] [address] Dr. Geri Pradhan IMP Resistant Gene Not Applicable Normal NOT DETECTED [facility] Comment on above: Performed By: #### T JUAN JOSE, CMP #### [facility] [address] [place] [address] Dr. Geri Pradhan K. oxytoca Not detected Normal NOT DETECTED [facility] Comment on above: Performed By: #### T JUAN JOSE, CMP #### [facility] [address] [place] [address] Dr. Geri Pradhan K. pneumoniae Not detected Normal NOT DETECTED [facility] Comment on above: Performed By: #### T JUAN JOSE, CMP #### [facility] [address] [place] [address] Dr. Geri Pradhan Klebsiella aerogenes Not detected Normal NOT DETECTED [facility] Comment on above: Performed By: #### T JUAN JOSE, CMP #### [facility] [address] [place] [address] Dr. Geri Pradhan KPC Resistant Gene Not Applicable Normal NOT DETECTED [facility] Comment on above: Performed By: #### T JUAN JOSE, CMP #### [facility] [address] [address] [address] Geri Pradhan List. monocytogenes Not detected Normal NOT DETECTED [facility] Comment on above: Performed By: #### T JUAN JOSE, CMP #### [facility] [address] [place] [address] Dr. Geri Pradhan Mcr-1 Resistant Gene Not Applicable Normal NOT DETECTE D [facility] Comment on above: Performed By: #### T JUAN JOSE, CMP #### [facility] [address] [address] [address] Geri Pradhan mecA/C Detected Abnormal NOT DETECTED [facility] Comment on above: Performed By: #### T JUAN JOSE, CMP #### [facility] [address] [place] [address] Dr. Geri Pradhan mecA/C MREJ Not Applicable Normal NOT DETECTED [facility] Comment on above: Performed By: #### Gerry INGRAM, CMP #### [facility] [address] [place] [address] Dr. Geri Pradhan N. meningitidis Not detected Normal NOT DETECTED [facility] Comment on above: Performed By: #### Gerry INGRAM, CMP #### [facility] [address] [place] [address] Dr. Geri Pradhan NDM Resistant Gene Not Applicable Normal NOT DETECTED [facility] Comment on above: Performed By: #### Gerry INGRAM, CMP #### [facility] [address] [place] [address] Dr. Geri Pradhan Oxa-48-like Not Applicable Normal NOT DETECTED [facility] Comment on above: Performed By: #### T JUAN JOSE, CMP #### [facility] [address] [place] [address] Dr. Geri Pradhan Proteus Not detected Normal NOT DETECTED [facility] Comment on above: Performed By: #### T JUAN JOSE, CMP #### [facility] [address] [place] [address] Dr. Geri Pradhan Pseud. aeruginosa Not detected Normal NOT DETECTED [facility] Comment on above: Performed By: #### T JUAN JOSE, CMP #### [facility] [address] [address] [address] Geri Pradhan S. maltophilia Not detected Normal NOT DETECTED [facility] Comment on above: Performed By: #### T JUAN JOSE, CMP #### [facility] [address] [address] [address] Geri Pradhan Salmonella Not detected Normal NOT DETECTED [facility] Comment on above: Performed By: #### T JUAN JOSE, CMP #### [facility] [address] [address] [address] Geri Pradhan Seratia marcescens Not detected Normal NOT DETECTED [facility] Comment on above: Performed By: #### T JUAN JOSE, CMP #### [facility] [address] [place] [address] Dr. Geri Pradhan Site: Right AC Normal [facility] Comment on above: Performed By: #### T JUAN JOSE, CMP #### [facility] [address] [address] [address] Geri Pradhan Stapwilliam. aureus Not detected Normal NOT DETECTED [facility] Comment on above: Performed By: #### T JUAN JOSE, CMP #### [facility] [address] [address] [address] Geri Pradhan Stapwilliam. epidermidis Detected Critically abnormal NOT DETECTED [facility] Comment on above: Performed By: #### T JUAN JOSE, CMP #### [facility] [address] [address] [address] Geri Pradhan Staph. lugdunensis Not detected Normal NOT DETECTED [facility] Comment on above: Performed By: #### T JUAN JOSE, CMP #### [facility] [address] [address] [address] Geri Pradhan Staphylococcus Detected Critically abnormal NOT DETECTED [facility] Comment on above: Performed By: #### T JUAN JOSE, CMP #### [facility] [address] [place] [address] Dr. Geri Pradhan Strep. agalactiae Not detected Normal NOT DETECTED [facility] Comment on above: Performed By: #### T JUAN JOSE, CMP #### [facility] [address] [place] [address] Dr. Geri Pradhan Strep. pneumoniae Not detected Normal NOT DETECTED [facility] Comment on above: Performed By: #### T JUAN JOSE, CMP #### [facility] [address] [address] [address] Geri Pradhan Strep. pyogenes Not detected Normal NOT DETECTED [facility] Comment on above: Performed By: #### T JUAN JOSE, CMP #### [facility] [address] [place] [address] Dr. Geri Pradhan Streptococcus Not detected Normal NOT DETECTED [facility] Comment on above: Performed By: #### T JUAN JOSE, CMP #### [facility] [address] [place] [address] Dr. Geri Pradhan Amrit/B Resist. Gene Not Applicable Normal NOT DETECTED [facility] Comment on above: Performed By: #### Gerry INGRAM, CMP #### [facility] [address] [place] [address] Dr. Geri Pradhan VIM Resistant Gene Not Applicable Normal NOT DETECTED [facility] Comment on above: Performed By: #### Gerry INGRAM, CMP #### [facility] [address] [place] [address] Dr. Geri Pradhan BLOOD GASES [facility] 09-01-2022 02 MODE NASAL CANNULA Normal [facility] Comment on above: Performed By: #### R SPLUS #### [facility] [address] [place] [address] Dr. Geri Pradhan ALLENDionne TEST Positive Normal [facility] Comment on above: Performed By: #### R SPLUS #### [facility] [address] [place] [address] Dr. Geri Pradhan Base excess Calc (Bld) [Moles/Vol] 22.8 mmol/L Critically high -2.0-2.0 [facility] Comment on above: Performed By: #### R SPLUS #### [facility] [address] [place] [address] Dr. Geri Pradhan BIPAP PRESSURE Normal [facility] Comment on above: Performed By: #### R SPLUS #### [facility] [address] [address] [address] Geri Pradhan CPAP [facility] Comment on above: Performed By: #### R SPLUS #### [facility] [address] [address] [address] Geri Pradhan FIO2 [facility] Comment on above: Performed By: #### R SPLUS #### [facility] [address] [address] [address] Geri Pradhan HCO3 (Bld) [Moles/Vol] 47.1 mmol/L Critically high 22.0-26 .0 [facility] Comment on above: Performed By: #### R SPLUS #### [facility] [address] [place] [address] Dr. Geri Pradhan LPM 2.5 [facility] Comment on above: Performed By: #### R SPLUS #### [facility] [address] [address] [address] Geri Pradhan MINUTE VOLUME Normal [facility] Comment on above: Performed By: #### R SPLUS #### [facility] [address] [place] [address] Dr. Geri Pradhan Oxygen (Bld) [Partial pressure] 95.8 mm[Hg] Normal 80.0-100.0 [facility] Comment on above: Performed By: #### R SPLUS #### [facility] [address] [place] [address] Dr. Geri Pradhan Oxygen saturation in Blood 98.0 % Normal 95.0-100.0 [facility] Comment on above: Performed By: #### R SPLUS #### [facility] [address] [address] [address] Geri Pradhan PCO2 71.5 mmHg Critically high 35.0-45.0 [facility] Comment on above: Performed By: #### R SPLUS #### [facility] [address] [address] [address] Geri Pradhan PEEP [facility] Comment on above: Performed By: #### R SPLUS #### [facility] [address] [place] [address] Dr. Geri Pradhan pH (Bld) 7.428 [pH] Normal 7.350-7.450 [facility] Comment on above: Performed By: #### R SPLUS #### [facility] [address] [place] [address] Dr. Geri Pradhan PIP [facility] Comment on above: Performed By: #### R SPLUS #### [facility] [address] [place] [address] Dr. Geri Pradhan PS [facility] Comment on above: Performed By: #### R SPLUS #### [facility] [address] [place] [address] Dr. Geri Pradhan PUNCTURE SITE RR [facility] Comment on above: Performed By: #### R SPLUS #### [facility] [address] [place] [address] Dr. Geri Pradhan [facility] Comment on above: Performed By: #### R SPLUS #### [facility] [address] [place] [address] Dr. Geri Pradhan VENT MODE [facility] Comment on above: Performed By: #### R SPLUS #### [facility] [address] [place] [address] Dr. Geri Pradhan [facility] Comment on above: Performed By: #### R SPLUS #### [facility] [address] [place] [address] Dr. Geri Pradhan BNPon 09-01-2022 Natriuretic peptide B (Bld) [Mass/Vol] 143.0 pg/mL Normal <=900.0 [facility] Comment on above: Performed By: #### R SPLUS #### [facility] [address] [place] [address] Dr. Geri Pradhan CARDIAC BRAYAN ADMITon 023 CK [Catalytic activity/Vol] 21 U/L Critically low 26-192 [facility] Comment on above: Performed By: #### R SPLUS #### [facility] [address] [place] [address] Dr. Geri Pradhan CK.MB [Mass/Vol] 0.78 ng/mL Normal <=3.60 [facility] Comment on above: Performed By: #### R SPLUS #### [facility] [address] [place] [address] Dr. Geri Pradhan HSTROP 6.9 pg/mL Normal 4.0-51.3 [facility] Comment on above: Result Comment: CUT- OFF POINTS HAVE BEEN ESTABLISHED BASED ON THE FOURTH UNIVERSAL DEFINITIONS OF MYOCARDIAL INFARCTION. THE UPPER REFERENCE LIMIT (URL) OF TROPONIN, DEFINED THE 99TH PERCENTILE OF cTnI DISTRIBUTION IN A REFERENCE POPULATION, HAS BEEN CONFIRMED THE DECISION THRESHOLD FOR TN DIAGNOSIS. Performed By: #### R SPLUS #### [facility] [address] [place] [address] Dr. Geri Pradhan VIN 20 ng/mL Normal 9-82 [facility] Comment on above: Performed By: #### R SPLUS #### [facility] [address] [place] [address] Dr. Geri Pradhan CBC AUTO DIFFon 09-01-2022 BASO # 0.0 103/ul Normal 0.0-0.1 [facility] Comment on above: Performed By: #### C BC #### [facility] [address] [place] [address] Dr. Geri Pradhan Basophils/100 WBC (Bld) 0.2 % Normal 0.2-2.0 [facility] Comment on above: Performed By: #### C BC #### [facility] [address] [place] [address] Dr. Geri Pradhan EO # 0.1 103/ul Normal 0.0-0.7 [facility] Comment on above: Performed By: #### C BC #### [facility] [address] [place] [address] Dr. Geri Pradhan Eosinophils/100 WBC (Bld) 1.5 % Normal 0.9-7.0 [facility] Comment on above: Performed By: #### C BC #### [facility] [address] [place] [address] Dr. Geri Pradhan Erythrocyte distribution width (RBC) [Ratio] 12.8 % Normal 11.0-15.0 [facility] Comment on above: Performed By: #### C BC #### [facility] [address] [place] [address] Dr. Geri Pradhan Hematocrit (Bld) [Volume fraction] 41.8 % Normal 36.0-48.0 [facility] Comment on above: Performed By: #### C BC #### [facility] [address] [place] [address] Dr. Geri Pradhan Hemoglobin (Bld) [Mass/Vol] 13.1 g/dL Normal 12.0-16.0 [facility] Comment on above: Performed By: #### C BC #### [facility] [address] [place] [address] Dr. Geri Pradhan IG # 0.05 10e3/ul Critically high 0.00-0.03 [facility] Comment on above: Performed By: #### C BC #### [facility] [address] [place] [address] Dr. Geri Pradhan IG % 0.5 % Normal 0.0-0.5 [facility] Comment on above: Performed By: #### C BC #### [facility] [address] [place] [address] Dr. Geri Pradhan LYMPH # 2.4 103/ul Normal 1.2-3.8 [facility] Comment on above: Performed By: #### C BC #### [facility] [address] [place] [address] Dr. Geri Pradhan Lymphocytes/100 WBC (Bld) 24.9 % Normal 20.5-60.0 [facility] Comment on above: Performed By: #### C BC #### [facility] [address] [place] [address] Dr. Geri Pradhan MANUAL DIFF REQ NO Normal [facility] Comment on above: Performed By: #### C BC #### [facility] [address] [place] [address] Dr. Geri Pradhan MCH (RBC) [Entitic mass] 27.2 pg Normal 26.7-34.0 [facility] Comment on above: Performed By: #### C BC #### [facility] [address] [place] [address] Dr. Geri Pradhan MCHC (RBC) [Mass/Vol] 31.3 g/dL Normal 29.9-35.2 [facility] Comment on above: Performed By: #### C BC #### [facility] [address] [place] [address] Dr. Geri Pradhan MCV (RBC) [Entitic vol] 86.7 fL Normal 81.0-99.0 [facility] Comment on above: Performed By: #### C BC #### [facility] [address] [place] [address] Dr. Geri Pradhan MONO # 0.9 103/ul Critically high 0.3-0.8 [facility] Comment on above: Performed By: #### C BC #### [facility] [address] [place] [address] Dr. Geri Pradhan Monocytes/100 WBC (Bld) 8.9 % Normal 1.7-12.0 [facility] Comment on above: Performed By: #### C BC #### [facility] [address] [place] [address] Dr. Geri Pradhan NEUT # 6.1 103/ul Normal 1.4-6.5 [facility] Comment on above: Performed By: #### C BC #### [facility] [address] [place] [address] Dr. Geri Pradhan Neutrophils/100 WBC (Bld) 64.0 % Normal 43.0-75.0 [facility] Comment on above: Performed By: #### C BC #### [facility] [address] [place] [address] Dr. Geri Pradhan Platelet mean volume (Bld) [Entitic vol] 9.2 fL Critically low 9.5-13.5 [facility] Comment on above: Performed By: #### C BC #### [facility] [address] [place] [address] Dr. Geri Pradhan PLT 349 103/ul Normal 150-450 [facility] Comment on above: Performed By: #### C BC #### [facility] [address] [place] [address] Dr. Geri Pradhan RBC 4.82 106/ul Normal 4.20-5.40 [facility] Comment on above: Performed By: #### C BC #### [facility] [address] [place] [address] Dr. Geri Pradhan WBC 9.5 103/ul Normal 4.0-11.0 [facility] Comment on above: Performed By: #### C BC #### [facility] [address] [place] [address] Dr. Geri Pradhan CULTURE BLOODon 09-01-2022 Microscopic examination of blood, culture Culture Observations: NO GROWTH AT 5 DAYS. Normal [facility] Comment on above: Performed By: #### P OCGLUC #### [facility] [address] [place] [address] Dr. Geri Pradhan CULTURE URINEon 09-01-2022 CULTURE URINE Culture Observations : EDUARDO TO FOLLOW. Isolate 1 Pseudomonas aeruginosa 10,000 cfu/mL of Normal [facility] Comment on above: Performed By: #### P OCGLUC #### [facility] [address] [place] [address] Dr. Geri Pradhan ER URINE PROFILEon 3 Bilirubin Ql (U) Negative Normal NEGATIVE [facility] Comment on above: Performed By: #### P OCGLUC #### [facility] [address] [place] [address] Dr. Geri Pradhan Clarity (U) CLEAR Normal CLEAR [facility] Comment on above: Performed By: #### P OCGLUC #### [facility] [address] [place] [address] Dr. Geri Pradhan Color (U) LT. YELLOW Normal YELLOW [facility] Comment on above: Performed By: #### P OCGLUC #### [facility] [address] [place] [address] Dr. Geri Pradhan ERUAHD A micrscopic examination will be performed if indicated. Normal [facility] Comment on above: Performed By: #### P OCGLUC #### [facility] [address] [address] [address] Geri Pradhan Glucose Ql (U) Negative Normal NEGATIVE [facility] Comment on above: Performed By: #### P OCGLUC #### [facility] [address] [address] [address] Geri Pradhan Hemoglobin Ql (U) TRACE-INTACT Abnormal NEGATIVE [facility] Comment on above: Performed By: #### P OCGLUC #### [facility] [address] [address] [address] Geri Pradhan Ketones Ql (U) Negative Normal NEGATIVE [facility] Comment on above: Performed By: #### P OCGLUC #### [facility] [address] [place] [address] Dr. Geri Pradhan LEUKOCYTES MODERATE Abnormal NEGATIVE [facility] Comment on above: Performed By: #### P OCGLUC #### [facility] [address] [address] [address] Geri Pradhan Nitrite Ql (U) Negative Normal NEGATIVE [facility] Comment on above: Performed By: #### P OCGLUC #### [facility] [address] [place] [address] Dr. Geri Pradhan pH (U) 6.5 [pH] Normal 5-9 [facility] Comment on above: Performed By: #### P OCGLUC #### [facility] [address] [place] [address] Dr. Geri Pradhan SPEC GRAVITY 1.010 Normal 1.005-<=1.02 5 [facility] Comment on above: Performed By: #### P OCGLUC #### [facility] [address] [address] [address] Geri Pradhan UA PROTEIN Negative Normal NEGATIVE/ TRACE [facility] Comment on above: Performed By: #### P OCGLUC #### [facility] [address] [place] [address] Dr. Geri Pradhan UR MICRO IND INDICATED Normal [facility] Comment on above: Performed By: #### P OCGLUC #### [facility] [address] [address] [address] Geri Pradhan Urobilinogen Qn (U) 0.2 {Lelia'U}/dL Normal 0.2 - 1. 0 [facility] Comment on above: Performed By: #### P OCGLUC #### [facility] [address] [address] [address] Geri Pradhan LACTATE/LACTIC ACIDon 2022 Lactate [Moles/Vol] 0.7 mmol/L Normal 0.4-2.[address] [facility] Comment on above: Performed By: #### T JUAN JOSE, CMP #### [facility] [address] [address] [address] Geri Pradhan PROF 14(COMP METB)on 023 Albumin [Mass/Vol] 3.3 g/dL Critically low 3.4-5.0 [facility] Comment on above: Performed By: #### P OCGLUC #### [facility] [address] [place] [address] Dr. Geri Pradhan Albumin/Globulin [Mass ratio] 0.7 {ratio} Normal [facility] Comment on above: Performed By: #### P OCGLUC #### [facility] [address] [place] [address] Dr. Geri Pradhan ALP [Catalytic activity/Vol] 81 U/L Normal 46-116 [facility] Comment on above: Performed By: #### P OCGLUC #### [facility] [address] [place] [address] Dr. Geri Pradhan ALT [Catalytic activity/Vol] 19 U/L Normal 14-59 [facility] Comment on above: Performed By: #### P OCGLUC #### [facility] [address] [place] [address] Dr. Geri Pradhan Anion gap [Moles/Vol] 3.1 mmol/L Normal [facility] Comment on above: Performed By: #### P OCGLUC #### [facility] [address] [place] [address] Dr. Geri Pradhan AST [Catalytic activity/Vol] 16 U/L Normal 15-37 [facility] Comment on above: Performed By: #### P OCGLUC #### [facility] [address] [address] [address] Geri Pradhan Bilirubin [Mass/Vol] 0.2 mg/dL Normal 0.2-1.0 [facility] Comment on above: Performed By: #### P OCGLUC #### [facility] [address] [address] [address] Geri Pradhan Calcium [Mass/Vol] 9.8 mg/dL Normal 8.5-10.1 [facility] Comment on above: Performed By: #### P OCGLUC #### [facility] [address] [address] [address] Geri Pradhan Chloride [Moles/Vol] 93 mmol/L Critically low 98-107 [facility] Comment on above: Performed By: #### P OCGLUC #### [facility] [address] [address] [address] Geri Pradhan CO2 [Moles/Vol] 45.3 mmol/L Critically high 21.0-32.0 [facility] Comment on above: Performed By: #### P OCGLUC #### [facility] [address] [place] [address] Dr. Geri Pradhan Creatinine [Mass/Vol] 0.51 mg/dL Critically low 0.55-1.02 [facility] Comment on above: Performed By: #### P OCGLUC #### [facility] [address] [address] [address] Geri Pradhan EGFR-AF ITALIAN >60 Normal >=60 [facility] Comment on above: Performed By: #### P OCGLUC #### [facility] [address] [address] [address] Geri Pradhan EGFR-NON AF ITALIAN >60 Normal >=60 [facility] Comment on above: Performed By: #### P OCGLUC #### [facility] [address] [place] [address] Dr. Geri Pradhan Globulin (S) [Mass/Vol] 4.8 g/dL Normal [facility] Comment on above: Performed By: #### P OCGLUC #### [facility] [address] [address] [address] Geri Pradhan Glucose [Mass/Vol] 98 mg/dL Normal 74-106 [facility] Comment on above: Performed By: #### P OCGLUC #### [facility] [address] [address] [address] Geri Pradhan Potassium [Moles/Vol] 3.4 mmol/L Critically low 3.5-5.1 [facility] Comment on above: Performed By: #### P OCGLUC #### [facility] [address] [address] [address] Geri Pradhan Protein [Mass/Vol] 8.1 g/dL Normal 6.4-8.2 [facility] Comment on above: Performed By: #### P OCGLUC #### [facility] [address] [address] [address] Geri Pradhan Sodium [Moles/Vol] 138 mmol/L Normal 136-145 [facility] Comment on above: Performed By: #### P OCGLUC #### [facility] [address] [address] [address] Geri Pradhan Urea nitrogen [Mass/Vol] 11.0 mg/dL Normal 7.0-18.0 [facility] Comment on above: Performed By: #### P OCGLUC #### [facility] [address] [address] [address] Geri Pradhan Urea nitrogen/Creatinine [Mass ratio] 21.6 mg/mg Normal [facility] Comment on above: Performed By: #### P OCGLUC #### [facility] [address] [address] [address] Geri Pradhan PROTIMEon 09-01-2022 INR Coag (PPP) [Relative time] 0.96 {INR} Normal [facility] Comment on above: Performed By: #### T JUAN JOSE, CMP #### [facility] [address] [address] [address] Geri Pradhan INR GUIDELINES SEE BELOW Normal [facility] Comment on above: Result Comment: KAROL RED INR: 2.0 - 3.0 CONDITIONS NOT LISTED BELOW 2.5 - 3.5 FOR PROSTHETIC HEART VALVE REPLACEMENT 2.5 - 3.5 RECURRENT THROMBOSIS Performed By: #### T JUAN JOSE, CMP #### [facility] [address] [place] [address] Dr. Geri Pradhan PT Coag (PPP) [Time] 10.2 s Normal 9.0-11.6 [facility] Comment on above: Performed By: #### Gerry INGRAM, CMP #### [facility] [address] [place] [address] Dr. Geri Pradhan PTTon 09-01-2022 aPTT Coag (Bld) [Time] 25.5 s Normal 22.3-36.2 [facility] Comment on above: Performed By: #### Gerry INGRAM CMP #### [facility] [address] [place] [address] Dr. Geri Pradhan URINE MICROSCOPIC ONLYon BACTERIA NONE SEEN Normal NONE SEEN [facility] Comment on above: Performed By: #### P OCGLUC #### [facility] [address] [place] [address] Dr. Geri Pradhan Bacteria identified Cx Nom (U) INDICATED Normal [facility] Comment on above: Performed By: #### P OCGLUC #### [facility] [address] [place] [address] Dr. Geri Pradhan CAST NONE SEEN Normal NONE SEEN [facility] Comment on above: Performed By: #### P OCGLUC #### [facility] [address] [place] [address] Dr. Geri Pradhan Crystals LM Nom (Urine sed) NONE SEEN Normal NONE SEEN [facility] Comment on above: Performed By: #### P OCGLUC #### [facility] [address] [place] [address] Dr. Geri Pradhan Epithelial cells LM Ql (Urine sed) FEW Abnormal NONE SEEN /RARE [facility] Comment on above: Performed By: #### P OCGLUC #### [facility] [address] [place] [address] Dr. Geri Pradhan MUCOUS NONE SEEN Normal NONE SEEN [facility] Comment on above: Performed By: #### P OCGLUC #### [facility] [address] [place] [address] Dr. Geri Pradhan RBC 0-2 Normal 0-2 [facility] Comment on above: Performed By: #### P OCGLUC #### [facility] [address] [place] [address] Dr. Geri Pradhan WBC 10-20 Abnormal NONE SEEN [facility] Comment on above: Performed By: #### P OCGLUC #### [facility] [address] [place] [address] Dr. Geri Pradhan XR CHEST 1 Von [...] by: EAMON ANDREWS Date: 2022-09-01 20:18 Normal [facility] ASPERGILLUS GALACTOMANNAN AN TIGEN DETECTon 05-28-2022 Aspergillus Ag, BAL/Serum 0.07 Index Normal 0.00-0.49 [facility] Comment on above: Result Comment: Perf ormed at: BN Performed By: #### Gerry INGRAM CMP #### [facility] [address] [place] [address] Dr. Geri Pradhan Test Information . Normal [facility] Comment on above: Result Comment: Perf ormed at: TG Performed By: #### T JUAN JOSE CMP #### [facility] [address] [place] [address] Dr. Geri Pradhan ASPERGILLUS AB, QUANTITATIVE DIDon 05-27-2022 Aspergillus flavus Negative Normal Neg:<1:1 [facility] Comment on above: Performed By: #### Gerry INGRAM CMP #### [facility] [address] [place] [address] Dr. Geri Pradhan Aspergillus fumigatus Negative Normal Neg:<1:1 [facility] Comment on above: Performed By: #### T JUAN JOSE, CMP #### [facility] [address] [address] [address] Geri Pradhan Aspergillus niger Negative Normal Neg:<1:1 [facility] Comment on above: Performed By: #### Gerry INGRAM, CMP #### [facility] [address] [address] [address] Geri Pradhan CULTURE SPUTUMon 05-23-2022 CULTURE SPUTUM Culture Observations : NORMAL RESPIRATORY NAVA. Normal [facility] Comment on above: Performed By: #### P OCGLUC #### [facility] [address] [address] [address] Geri Pradhan SPUTUM GRAM STAINon 05-23-19 COMMENTS Normal [facility] Comment on above: Performed By: #### Gerry INGRAM, CMP #### [facility] [address] [address] [address] Geri Pradhan DIPHTHEROIDS [facility] Comment on above: Performed By: #### Gerry INGRAM, CMP #### [facility] [address] [address] [address] Geri Pradhan EPITHELIALS <25 Normal [facility] Comment on above: Performed By: #### Gerry INGRAM CMP #### [facility] [address] [address] [address] Geri Pradhan FUNGAL ELEMENTS Normal [facility] Comment on above: Performed By: #### Gerry INGRAM CMP #### [facility] [address] [address] [address] Geri SY NEG BACILLI Normal [facility] Comment on above: Performed By: #### Gerry INGRAM, CMP #### [facility] [address] [address] [address] Geri SY NEG DIPPLOCOCCI Normal [facility] Comment on above: Performed By: #### Gerry INGRAM, CMP #### [facility] [address] [address] [address] Geri SY POS BACILLI Normal [facility] Comment on above: Performed By: #### Gerry INGRAM CMP #### [facility] [address] [address] [address] Geri Pradhan GRAM POSITIVE COCCI MODERATE Normal [facility] Comment on above: Performed By: #### Gerry INGRAM CMP #### [facility] [address] [address] [address] Geri Pradhan WBC (Bld) [#/Vol] 10*3/uL Normal [facility] Comment on above: Performed By: #### Gerry INGRAM CMP #### [facility] [address] [address] [address] Geri Pradhan BRONCHOSCOPYon 05-09-2022 [facility] Covid-19 PCR (CVDTBH)on 04-14 SARS-CoV-2 (COVID-19) RNA KRUNAL+probe Ql (Unsp spec) Not detected Normal NOT DETECTED [facility] Comment on above: Result Comment: This test is not yet approved or cleared by the [place] FDA. When there are no FDA-approved or cleared tests available, and other criteria are met, FDA can make tests available under an emergency access mechanism called an Emergency Use Authorization (EUA). The EUA for this test is supported by the [employer] of Health and Human Service's (HHS's) declaration [...] SARS-CoV-2. Performed By: #### R SPLUS #### [facility] [address] [address] [address] Geri Pradhan Covid-19 PCR (CVDTBH)on 03-14 SARS-CoV-2 (COVID-19) RNA KRUNAL+probe Ql (Unsp spec) Not detected Normal NOT DETECTED [facility] Comment on above: Result Comment: This test is not yet approved or cleared by the [place] FDA. When there are no FDA-approved or cleared tests available, and other criteria are met, FDA can make tests available under an emergency access mechanism called an Emergency Use Authorization (EUA). The EUA for this test is supported by the Machine Technician of Health and Human Service's (HHS's) declaration [...] Performed By: #### Gerry INGRAM, CMP #### [facility] [address] [place] [address] Dr. Geri Pradhan INFLUENZA A AND B [facility] 04-08 [facility] SEE BELOW Normal [facility] Comment on above: Result Comment: Nega tive for Flu A protein angiten. Infection due to Flu A cannot be ruled out. Flu A angiten in the sample may be below the detection limit of the test. Performed By: #### Gerry INGRAM, CMP #### [facility] [address] [place] [address] Dr. Ger[facility] SEE BELOW Normal [facility] Comment on above: Result Comment: Nega tive for Flu B protein antigen. Infection due to Flu B cannot be ruled out. Flu B antigen in the sample may be below the detection limit of the test. Performed By: #### T JUAN JOSE, CMP #### [facility] [address] [place] [address] Dr. Geri Pradhan INFLUENZA A AG Negative Normal NEGATIVE SEE COMMENT [facility] Comment on above: Performed By: #### Gerry INGRAM, CMP #### [facility] [address] [place] [address] Dr. Geri Pradhan INFLUENZA B AG Negative Normal NEGATIVE SEE COMMENT [facility] Comment on above: Performed By: #### T JUAN JOSE, CMP #### [facility] [address], [place] [address] Dr. Geri Pradhan INTERNAL CONTROLS Within Normal Limits Normal Wi thin Normal Limits [facility] Comment on above: Performed By: #### Gerry INGRAM CMP #### [facility] [address] [place], [place] [address] CHEST W CONon [...] JULES RAMIREZ Date: 2022-02-17 08:02 Normal [facility] CREATININEon 02-15-2022 Creatinine [Mass/Vol] 0.52 mg/dL Critically low 0.55-1.02 [facility] Comment on above: Performed By: #### R SPLUS #### [facility] [address] [address] [address] Geri Pradhan EGFR-AF ITALIAN >60 Normal >=60 [facility] Comment on above: Performed By: #### R SPLUS #### [facility] [address] [address] [address] Geri Pradhan EGFR-NON AF ITALIAN >60 Normal >=60 [facility] Comment on above: Performed By: #### R SPLUS #### [facility] [address] [address] [address] Geri Pradhan CULTURE SPUTUMon 02-11-2022 CULTURE SPUTUM Isolate 1 Milagros albicans Light growth of Normal [facility] Comment on above: Performed By: #### S PUTCX #### [facility] [address] [place] [address] Dr. Geri Pradhan SPUTUM GRAM STAINon 02-12-20 COMMENTS Normal [facility] Comment on above: Performed By: #### R SPLUS #### [facility] [address] [address] [address] Geri Pradhan DIPHTHEROIDS Normal [facility] Comment on above: Performed By: #### R SPLUS #### [facility] [address] [address] [address] Geri Pradhan EPITHELIALS <25 Normal [facility] Comment on above: Performed By: #### R SPLUS #### [facility] [address] [address] [address] Geri Pradhan FUNGAL ELEMENTS Normal [facility] Comment on above: Performed By: #### R SPLUS #### [facility] [address] [address] [address] Geri Pradhan GRAM NEG BACILLI Normal [facility] Comment on above: Performed By: #### R SPLUS #### [facility] [address] [place] [address] Dr. Geri SY NEG DIPPLOCOCCI Normal [facility] Comment on above: Performed By: #### R SPLUS #### [facility] [address] [place] [address] Dr. Geri Pradhan GRAM POS BACILLI Normal [facility] Comment on above: Performed By: #### R SPLUS #### [facility] [address] [place], [place] [address] Dr. Geri Pradhan GRAM POSITIVE COCCI MODERATE Normal [facility] Comment on above: Performed By: #### R SPLUS #### [facility] [address] [place], [place] [address] Dr. Geri Pradhan WBC (Bld) [#/Vol] 10*3/uL Normal [facility] Comment on above: Performed By: #### R SPLUS #### [facility] [address] [place], [place] [address] Dr. Geri Pradhan Covid-19 PCR (CVDTBH)on 11-13 SARS-CoV-2 (COVID-19) RNA KRUNAL+probe Ql (Unsp spec) Detected Critically abnormal NOT DETECTED [facility] Comment on above: Result Comment: This test is not yet approved or cleared by the [place] FDA. When there are no FDA-approved or cleared tests available, and other criteria are met, FDA can make tests available under an emergency access mechanism called an Emergency Use Authorization (EUA). The EUA for this test is supported by the Machine Technician of Health and Human Service's (HHS's) declaration [...] used). Performed By: #### C VDTBH #### [facility] [address] [place], [place] [address] Dr. Geri Pradhan General Surgery Office/Clini c [...] Mother, Father and Sister. Normal [facility] Comment on above: Result Comment: Elec tronically Signed By: JIM DAVENPORT, Jose Gonzalez.giana\Date and Time Signed: 03/25/21 17:02 EST Ambulatory Clinical Summaryo n 02-12-2021 Ambulatory Clinical Summary {[id number]}CD:[id number] Normal [facility] General Surgery Office/Clini c Noteon 02-12-2021 [...] Brother. Cardiac arrest: Mother, Father and Sister. [facility] Comment on above: Result Comment: Elec tronically Signed By: JIM DAVENPORT, Jose Domínguez\Date and Time Signed: 02/12/21 13:16 EDT Pathology Noteon 02-06-2021 Pathology Note [id number] 0CD:127 Normal [facility] Ambulatory Clinical Summaryo n 01-11-2021 Ambulatory Clinical Summary {[id number]}CD:[id number] [facility] Ambulatory Clinical Summary {[id number]}CD:[id number] Normal [facility] Physician Referralon 021 Physician Referral [id number] 0CD:127 Normal [facility] [id number] 03-02-2018 Protein mass conc NAME : ELAINE GUERRERO D : [id number] : 1960 Gender : FemaleRace : CaucasianORD : [id number] Procedure Date : Mar 02 2018 12:58:22Edit Date : Mar 02 2018 14:15:37 Diagnosis:NORMAL SINUS RHYTHMRIGHT ATRIAL ENLARGEMENTMINIMAL VOLTAGE CRITERIA FOR LVH, MAY BE NORMAL VARIANTBORDERLINE ECGNO PREVIOUS ECGS AVAILABLEConfirmed by CORNELIA ROGERS M.D. ([id number]) on 03/02/2018 2:15:27 PM Ventricular Rate : 86 BPMAtrial Rate : 86 BPMP-R Interval : 178 msQRS Duration : 72 msQ-T Interval : 374 msQTC Calculation(Bezet) : 447 msP [place] : 88 degreesR [place] : 78 degreesT [place] : 79 degrees Test Reason : Location : 49 : [place] Overread By : KEN Maier,MIHIRJAYEdited By : KEN Maier,JEAN-CLAUDEYReferred By : DUGLAS FERNANDEZAcquired by : CELESTE GILLESPIE [facility] Vital Signs Date Time Vital Sign Value Performing Clinician Facility 12-03-2023 09:31-0400 Body height 162.56 cm [facility] 12-03-2023 09:31-0400 Body mass index (BMI) [Ratio] 16 kg/m2 [facility] 12-03-2023 09:31-0400 Body temperature 97.8 [degF] [facility] 12-03-2023 09:31-0400 Body weight 42.18 kg [facility] 12-03-2023 09:31-0400 Diastolic blood pressure 72 mm[Hg] [facility] 12-03-2023 09:31-0400 Heart rate 100 /min [facility] 12-03-2023 09:31-0400 Inhaled oxygen flow rate 2 L/min [facility] 12-03-2023 09:31-0400 Respiratory rate 20 /min [facility] 12-03-2023 09:31-0400 SaO2% (BldA) [Mass fraction] 94 % [facility] 12-03-2023 09:31-0400 Systolic blood pressure 115 mm[Hg] [facility] 11-17-2023 14:50-0400 Body height 162.6 cm [facility] 1 Work Phone: [facility] 11-17-2023 14:50-0400 Body mass index (BMI) [Ratio] 16.01 kg/m2 Pac 1 Work Phone: [facility] 11-17-2023 14:50-0400 Body temperature 97.2 [degF] [facility] 1 Work Phone: [facility] 11-17-2023 14:50-0400 Body weight 42.3 kg [facility] 1 Work Phone: [facility] 11-17-2023 14:50-0400 Diastolic blood pressure 64 mm[Hg] [facility] 1 Work Phone: [facility] 11-17-2023 14:50-0400 Heart rate 118 /min [facility] 1 Work Phone: [facility] 11-17-2023 14:50-0400 Respiratory rate 16 /min [facility] 1 Work Phone: [facility] 11-17-2023 14:50-0400 SaO2% (BldA) [Mass fraction] 95 % [facility] 1 Work Phone: [facility] Comment on above: 2l 11-17-2023 14:50-0400 Systolic blood pressure 121 mm[Hg] [facility] 1 Work Phone: [facility] 09-29-2023 13:29-0400 Body height 162.56 cm [facility] 09-29-2023 13:29-0400 Body mass index (BMI) [Ratio] 16.1 kg/m2 [facility] 09-29-2023 13:29-0400 Body temperature 96.2 [degF] [facility] 09-29-2023 13:29-0400 Body weight 42.63 kg [facility] 09-29-2023 13:29-0400 Diastolic blood pressure 74 mm[Hg] [facility] 09-29-2023 13:29-0400 Heart rate 92 /min [facility] 09-29-2023 13:29-0400 Respiratory rate 20 /min [facility] 09-29-2023 13:29-0400 SaO2% (BldA) [Mass fraction] 91 % [facility] 09-29-2023 13:29-0400 Systolic blood pressure 134 mm[Hg] [facility] 09-16-2023 11:30-0400 Diastolic blood pressure 69 mm[Hg] Khushboo Mcintyre MD, MD Work Phone: [facility] 09-16-2023 11:30-0400 Heart rate 102 /min Khushboo Mcintyre MD, MD Work Phone: [facility] 09-16-2023 11:30-0400 Respiratory rate 16 /min Khushboo Mcintyre MD, MD Work Phone: [facility] 09-16-2023 11:30-0400 SaO2% (BldA) [Mass fraction] 97 % Khushboo Mcintyre MD, MD Work Phone: [facility] 09-16-2023 11:30-0400 Systolic blood pressure 146 mm[Hg] Khushboo Mcintyre MD, MD Work Phone: [facility] 09-16-2023 09:02-0400 Body temperature 97.5 [degF] Khushboo Mcintyre MD, MD Work Phone: [facility] 05-17-2023 12:14-0500 Heart rate 120 /min [facility] 05-17-2023 12:14-0500 Respiratory rate 22 /min [facility] 05-17-2023 11:04-0500 Diastolic blood pressure 76 mm[Hg] [facility] 05-17-2023 11:04-0500 Inhaled oxygen flow rate 2 L/min [facility] 05-17-2023 11:04-0500 SaO2% (BldA) [Mass fraction] 97 % [facility] 05-17-2023 11:04-0500 Systolic blood pressure 117 mm[Hg] [facility] 05-17-2023 07:32-0500 Body temperature 97.4 [degF] [facility] 05-17-2023 03:19-0500 Body weight 39.2 kg [facility] 05-14-2023 16:31-0500 Body height 162.56 cm [facility] 05-14-2023 01:40-0500 Diastolic blood pressure 57 mm[Hg] [facility] 05-14-2023 01:40-0500 Heart rate 119 /min [facility] 05-14-2023 01:40-0500 Inhaled oxygen flow rate 2 L/min [facility] 05-14-2023 01:40-0500 Respiratory rate 22 /min [facility] 05-14-2023 01:40-0500 SaO2% (BldA) [Mass fraction] 91 % [facility] 05-14-2023 01:40-0500 Systolic blood pressure 119 mm[Hg] [facility] 05-13-2023 16:49-0500 Body height 162.56 cm [facility] 05-13-2023 16:49-0500 Body temperature 97.9 [degF] [facility] 05-13-2023 16:49-0500 Body weight 40.36 kg [facility] 11-27-2022 10:34-0400 Body temperature 96.01 [degF] Abdi Israel MD Work Phone: [facility] 11-27-2022 10:34-0400 Body weight 45.18 kg Abdi Israel MD Work Phone: [facility] 11-27-2022 10:34-0400 Diastolic blood pressure 82 mm[Hg] Abdi Israel MD Work Phone: [facility] 11-27-2022 10:34-0400 Heart rate 110 /min Abdi Israel MD Work Phone: [facility] 11-27-2022 10:34-0400 Respiratory rate 20 /min Abdi Israel MD Work Phone: [facility] 11-27-2022 10:34-0400 SaO2% (BldA) [Mass fraction] 89 % Abdi Israel MD Work Phone: [facility] 11-27-2022 10:34-0400 Systolic blood pressure 132 mm[Hg] Abdi Israel MD Work Phone: [facility] 06-26-2022 15:00-0400 Body height 162.56 cm Jose Conde Other [facility] Other 06-26-2022 15:00-0400 Body mass index (BMI) [Ratio] 18.02 kg/m2 Jose Conde Other [facility] Other 06-26-2022 15:00-0400 Body temperature 97.2 [degF] Jose Conde Other [facility] Other 06-26-2022 15:00-0400 Body weight 47.63 kg Jose Conde Other [facility] Other 06-26-2022 15:00-0400 Diastolic blood pressure 80 mm[Hg] Jose Conde Other [facility] Other 06-26-2022 15:00-0400 Systolic blood pressure 128 mm[Hg] Jose Conde Other [facility] Other 06-02-2022 14:09-0500 Body temperature 97.7 [degF] Abdi Israel MD Work Phone: [facility] 06-02-2022 14:09-0500 Body weight 49.35 kg Abdi Israel MD Work Phone: [facility] 06-02-2022 14:09-0500 Diastolic blood pressure 78 mm[Hg] Abdi Israel MD Work Phone: [facility] 06-02-2022 14:09-0500 Heart rate 116 /min Abdi Israel MD Work Phone: [facility] 06-02-2022 14:09-0500 Respiratory rate 18 /min Abdi Israel MD Work Phone: [facility] 06-02-2022 14:09-0500 SaO2% (BldA) [Mass fraction] 89 % Abdi Israel MD Work Phone: [facility] 06-02-2022 14:09-0500 Systolic blood pressure 125 mm[Hg] Abdi Israel MD Work Phone: [facility] 05-22-2022 15:15-0500 Body height 162.56 cm Jose Elton Other [facility] Other 05-22-2022 15:15-0500 Body mass index (BMI) [Ratio] 18.02 kg/m2 Jose Elton Other [facility] Other 05-22-2022 15:15-0500 Body temperature 98.2 [degF] Jose Conde Other [facility] Other 05-22-2022 15:15-0500 Body weight 47.63 kg Jose Conde Other [facility] Other 05-22-2022 15:15-0500 Diastolic blood pressure 78 mm[Hg] Jose Conde Other [facility] Other 05-22-2022 15:15-0500 Systolic blood pressure 130 mm[Hg] Jose Conde Other [facility] Other 05-09-2022 10:30-0500 Diastolic blood pressure 80 mm[Hg] Yasmin Waggoner MD Work Phone: [facility] 05-09-2022 10:30-0500 Heart rate 99 /min Yasmin Waggoner MD Work Phone: [facility] 05-09-2022 10:30-0500 Respiratory rate 16 /min Yasmin Waggoner MD Work Phone: [facility] 05-09-2022 10:30-0500 SaO2% (BldA) [Mass fraction] 97 % Yasmin Waggoner MD Work Phone: [facility] 05-09-2022 10:30-0500 Systolic blood pressure 134 mm[Hg] Yasmin Waggoner MD Work Phone: [facility] 05-09-2022 10:02-0500 Body temperature 98.2 [degF] Yasmin Waggoner MD Work Phone: [facility] 05-09-2022 07:03-0500 Body height 162.6 cm Yasmin Waggoner MD Work Phone: [facility] 05-09-2022 07:03-0500 Body weight 47.63 kg Yasmin Waggoner MD Work Phone: [facility] 03-14-2022 11:22-0500 Body temperature 97.81 [degF] Abdi Israel MD Work Phone: [facility] 03-14-2022 11:22-0500 Body weight 49.9 kg Abdi Israel MD Work Phone: [facility] 03-14-2022 11:22-0500 Heart rate 101 /min Abdi Israel MD Work Phone: [facility] 03-14-2022 11:22-0500 Respiratory rate 16 /min Abdi Israel MD Work Phone: [facility] 03-14-2022 11:22-0500 SaO2% (BldA) [Mass fraction] 96 % Abdi Israel MD Work Phone: [facility] 06-06-2021 10:01-0500 Body temperature 97.7 [degF] Abdi Israel MD Work Phone: [facility] 06-06-2021 10:01-0500 Body weight 51.71 kg Abdi Israel MD Work Phone: [facility] 06-06-2021 10:01-0500 Diastolic blood pressure 67 mm[Hg] Abdi Israel MD Work Phone: [facility] 06-06-2021 10:01-0500 Heart rate 97 /min Abdi Israel MD Work Phone: [facility] 06-06-2021 10:01-0500 Respiratory rate 20 /min Abdi Israel MD Work Phone: [facility] 06-06-2021 10:01-0500 SaO2% (BldA) [Mass fraction] 93 % Abdi Israel MD Work Phone: [facility] 06-06-2021 10:01-0500 Systolic blood pressure 120 mm[Hg] Abdi Israel MD Work Phone: [facility] Encounters Encounter Date Encounter Type Care Provider Facility Start: 12-03-2023 End: 12-03-2023 ambulatory [facility] Work Phone: Start: 12-03-2023 End: 12-03-2023 Patient encounter procedure [facility] Work Phone: Start: 11-19-2023 Telephone encounter Teo Craft MD Work Phone: [facility] Comment on above: Patient Update Start: 11-18-2023 End: 11-18-2023 ambulatory [facility] Facility:[facility] Start: 11-17-2023 End: 11-17-2023 ambulatory [facility] Facility:[facility] Start: 11-17-2023 Encounter for other preprocedural examination [facility] Start: 11-17-2023 End: 11-17-2023 Admission to establishment [address] [place] [phone] Work Phone: Pre Anesthesia Start: 11-17-2023 End: 11-17-2023 Anesthesia consultation [address] [place] [address] Work Phone: Pre Anesthesia Comment on above: Preoperative examina tion (Primary Dx); 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); Non-small cell cancer of left lung (HCC); Chronic respiratory failure with hypoxia (HCC); COPD, severe (HCC); Supplemental oxygen dependent; Former smoker Start: 11-17-2023 End: 11-17-2023 Preprocedural examination done [place] [address] Work Phone: [facility] Work Phone: Start: 11-16-2023 End: 12-09-2023 Telephone encounter Abdi Israel MD Work Phone: Radiation Oncology Comment on above: Results Start: 10-27-2023 End: 10-27-2023 ambulatory ABDI ISRAEL Facility:[facility] Start: 10-27-2023 End: 10-27-2023 Patient encounter procedure Teo Craft MD Work Phone: Otolaryngology Comment on above: Lymphadenopathy (Marysol rowan Dx); Non-small cell cancer of left lung (HCC); 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) Start: 09-29-2023 End: 09-29-2023 ambulatory [facility] Work Phone: Start: 09-29-2023 End: 09-29-2023 Patient encounter procedure [facility] Work Phone: Start: 09-21-2023 Telephone encounter Abdi Israel MD Work Phone: Cancer [facility] Comment on above: Appointment Confirma tion Start: 09-16-2023 ambulatory [facility] Facility: [facility] Start: 09-16-2023 End: 09-16-2023 Subsequent hospital visit by physician Khushboo Mcintyre MD Work Phone: [id number] Comment on above: Malignant neoplasm o f unspecified part of unspecified bronchus or lung (HCC) [C34.90] Start: 09-14-2023 End: 09-14-2023 ambulatory [facility] Facility:[facility] Start: 09-09-2023 Orders Only Osito Galicia MD Work Phone: [facility] Comment on above: Neoplasm (Primary Dx ) Start: 09-08-2023 Telephone encounter Abdi Israel MD Work Phone: [facility] Comment on above: Cervical lymph node bx Biopsy Request Start: 09-01-2023 End: 09-01-2023 ambulatory ABDI ISRAEL Facility:[facility] Start: 08-17-2023 End: 08-17-2023 ambulatory CARLA MONTAGUE Not Available Start: 08-14-2023 Telephone encounter Abdi Israel MD Work Phone: Radiation Oncology Comment on above: Patient Update Start: 07-14-2023 End: 07-14-2023 ambulatory ANA DRIVER Not Available Start: 05-25-2023 End: 05-25-2023 ambulatory ADITHYA KENYON Facility:[facility] Start: 05-20-2023 Telephone encounter Abdi Israel MD Work Phone: Radiation Oncology Comment on above: Patient Update; Futu re Appointment Start: 05-14-2023 End: 05-17-2023 Evaluation and management of inpatient Ally Warner Facility:[facility] Start: 05-14-2023 Non-patient / Non-visit [facility] Work Phone: Start: 04-09-2023 End: 04-09-2023 ambulatory [facility] DR[facility] Not Available Start: 11-27-2022 End: 11-28-2022 Patient encounter procedure Abdi Israel MD Work Phone: Radiation Oncology Comment on above: Neoplasm of lung (Pr imary Dx) Start: 11-18-2022 Telephone encounter Rosa Rojas Hematology/Oncology Comment on above: Appointment Start: 09-02-2022 End: 09-05-2022 Evaluation and management of inpatient DR ADITHYA KENYON . Facility: Start: 06-26-2022 End: 06-26-2022 ambulatory Jose Conde Other [facility] Other Start: 06-26-2022 Office outpatient vi sit 25 minutes Jose Conde [facility] Start: 06-10-2022 End: 06-10-2022 ambulatory Jose Conde Other [facility] Other Start: 06-10-2022 Telephone encounter Jose Conde [facility] Start: 06-02-2022 End: 06-02-2022 Patient encounter procedure Abdi Israel MD Work Phone: Radiation Oncology Comment on above: Non-small cell cance r of left lung (HCC) (Primary Dx) Start: 05-23-2022 End: 05-23-[address] JOSE CONDE Facility:[facility] Start: 05-22-2022 End: 05-23-[address] JOSE CONDE [facility] Other Start: 05-22-2022 Office outpatient ne w 45 minutes Jose Conde [facility] Infectious Disease Start: 05-14-2022 Telephone encounter Abdi Israel MD Work Phone: Radiation Oncology Comment on above: Appointment Start: 05-09-2022 End: 05-09-2022 Subsequent hospital visit by physician Yasmin Waggoner MD Work Phone: Admitting Comment on above: Bronchiolar disease [J98.09] Start: 05-08-2022 Encounter for preprocedural laboratory examination DR DOCTOR DAS [facility] Start: 05-06-2022 End: 05-06-[address] DOCTOR DAS Facility:[facility]1 Start: 05-06-2022 End: 05-06-2022 Encounter for preprocedural laboratory examination DR DOCTOR DAS Facility:[facility]1 Start: 04-28-2022 End: 04-28-2022 ambulatory Vitor Kaur MD Work Phone: Pulmonology Comment on above: Non-small cell cance r of left lung (HCC) (Primary Dx); Lung mass; Centrilobular emphysema (HCC) Start: 04-28-2022 End: 04-28-2022 Telemedicine consultation with patient Vitor Kaur MD Work Phone: [facility] Start: 04-24-2022 Telephone encounter Florina Hassan CT Pulmonary Medicine Comment on above: Appointment (PreOp Heath carranza) Start: 04-23-2022 Orders Only Alicja Reece APRN.[employer]ER Work Phone: Admitting Comment on above: Preoperative examina tion (Primary Dx) Appointment Start: 04-23-2022 Preprocedural examin ation done Alicja Reece APRN.[employer]ER W[employer]ER Work Phone: Admitting Start: 04-22-2022 ambulatory Vitor cagle MD Work Phone: Pulmonary Medicine Start: 04-22-2022 Telephone encounter Abdi Israel MD Work Phone: Radiation Oncology Comment on above: Patient Update; Appo intment Start: 04-08-2022 End: 04-08-[address] ADITHYA KENYON . Facility:[facility]1 Start: 03-14-2022 End: 03-14-2022 Patient encounter procedure Abdi Israel MD Work Phone: Radiation Oncology Comment on above: Non-small cell cance r of left lung (HCC) (Primary Dx) Start: 02-20-2022 Telephone encounter Abdi Israel MD [...] of lung Start: 03-02-2018 Patient encounter procedure [facility] Start: 03-24-2017 Ambulatory JAYE HOUGH Facil [id number] Start: 03-24-2017 Ambulatory Adithya Kenyon Facility:[id number] Procedures Date Procedure Procedure Detail Performing Clinician Start: 10-27-2023 US NECK (POC) HNI US E ONLY Teo Craft MD Work Phone: Start: 05-09-2022 Brnchsc incl fluor g dnce dx w/cell washg spx Abdi Israel MD Work Phone: Start: 02-24-2022 Adult depression screening assessment Abdi Israel MD Work Phone: Plan of Treatment Date Care Activity Detail Author Start: 11-16-2026 Diabetes Screening Diabetes Screening [facility] Start: 04-24-2025 DIABETES SCREEN DIABETES SCREEN [facility] Start: 04-24-2025 Diabetes Screening Diabetes Screening [facility] Start: 05-23-2024 End: 05-23-2024 Patient encounter procedure 05/23/2024 11:00 AM EST Office Visit Radiation Oncology [address] [facility] [place] [address] Abdi Israel MD [address] [facility] [place] [address] Followup Radiation Oncology Comment on above: Followup Start: 05-18-2024 End: 05-18-2024 Patient encounter procedure 05/18/2024 10:15 AM EST Appointment Radiology Pet CT [address] [place] [address] CT [address] Radiology Pet CT Comment on above: CT CHEST Start: 12-21-2023 End: 12-21-2023 ambulatory 12/21/2023 1:25 PM EDT [facility] Otolaryngology [address] [address] Teo Craft MD [address] [place] [address] post op Otolaryngology Comment on above: post op Start: 12-18-2023 End: 12-18-2023 Patient encounter procedure 12/18/2023 3:00 PM EDT Office Visit Radiation Oncology [address] [facility] [place] [address] Abdi Israel MD [address] [place] [address] followup Radiation Oncology Comment on above: followup Start: 12-15-2023 End: 12-15-2023 Patient encounter procedure 12/15/2023 2:15 PM EDT Appointment Radiology Pet CT [address] [facility] [place] [address] CT chest [address]iology Pet CT Comment on above: CT chest Start: 12-15-2023 End: 12-15-2023 Patient encounter procedure 12/15/2023 12:45 PM EDT Appointment Radiology Pet CT [address] [place] [address] [place] [address] Comment on above: PET Start: 12-13-2023 Influenza vaccination Influenza Vaccine (#1) [facility] Start: 11-18-2023 End: 11-18-2023 Admission to same day surgery center 11/18/2023 4:10 PM EDT - 11/18/2023 6:42 PM EDT Surgery Admitting [address] [place] [address] Teo Craft MD [address] [place] [address] BIOPSY OR EXCISION LYMPH NODE(S) OPEN, DEEP CERVICAL Admitting Comment on above: BIOPSY OR EXCISION LYMPH NODE(S) OPEN, D EEP CERVICAL Start: 11-18-2023 End: 11-18-2023 Bx/exc lymph node open deep cervical node BIOPSY OR EXCISION LYMPH NODE(S) OPEN, DEEP CERVICAL Non-small cell cancer of left lung (HCC) Lymphadenopathy 11/18/2023 4:10 PM EDT [facility] Start: 11-18-2023 Subsequent hospital visit by physician 11/18/2023 4:10 PM EDT Hospital Encounter Admitting [address] [place] [address] Teo Craft MD [address] [place] [address] Non-small cell cancer of left lung (HCC) [C34.92] Admitting Comment on above: Non-small cell cancer of left lung (HCC) [C34.92] Start: 10-27-2023 End: 10-27-2023 Patient encounter procedure 10/27/2023 11:00 AM EDT Office Visit Otolaryngology [address] [address] Teo Craft MD [address] [place] [address] excisional biopsy cervical lymph node; needle biopsy was negative Otolaryngology Comment on above: excisional biopsy cervical lymph node; n eedle biopsy was negative Start: 09-16-2023 End: 09-16-2023 Admission to same day surgery center 09/16/2023 10:00 AM EDT - 09/16/2023 11:00 AM EDT Surgery Angio [address] [place] [address] [place], [address] [facility] [address] [address] BIOPSY OR EXCISION LYMPH NODES(S) NEEDLE SUPERFICIAL Angio Comment on above: BIOPSY OR EXCISION LYMPH NODES(S) NEEDLE SUPERFICIAL Start: 09-16-2023 End: 09-16-2023 Bx/exc lymph node needle superficial BIOPSY OR EXCISION LYMPH NODES(S) NEEDLE SUPERFICIAL Malignant neoplasm of unspecified part of unspecified bronchus or lung (HCC) 09/16/2023 10:00 AM EDT [facility] Start: 09-16-2023 Subsequent hospital visit by physician 09/16/2023 10:00 AM EDT Hospital Encounter Angio [address] [place] [address] [place] [address] [facility] [address] [address] Malignant neoplasm of unspecified part of unspecified bronchus or lung (HCC) [C34.90] Angio Comment on above: Malignant neoplasm of unspecified part o f unspecified bronchus or lung (HCC) [C34.90] Start: 09-09-2023 End: 12-09-2023 CBC panel - Blood by Automated count COMPLETE BLOOD COUNT Lab Routine Neoplasm Expected: 09/09/2023, Expires: 12/09/2023 [facility] Work Phone: Comment on above: Expected: 09/09/2023, Expires: Start: 09-01-2023 End: 09-01-2023 Patient encounter procedure 09/01/2023 12:45 PM EDT Appointment Radiology Pet CT [address] [place] [address] [place] [address] Comment on above: PET Start: 05-17-2023 [facility] Start: 05-14-2023 Administration of prophylactic treatment [facility] Start: 05-14-2023 End: 05-14-2023 [facility] Start: 05-14-2023 Hospital admission [facility] Start: 05-14-2023 Microbial culture of sputum [facility] Start: 05-13-2023 CT Chest [facility] Start: 05-13-2023 End: 07-13-2023 CREATININE BLD CREATININE BLD Lab Routine Neoplasm of lung Expected: 05/13/2023 (Approximate), Expires: 07/13/2023 [facility] Work Phone: Comment on above: Expected: 05/13/2023 (Approximate), Expi res: 07/13/2023 Start: 05-13-2023 End: 12-27-2023 CT CHEST W IVCON CT CHEST W IVCON Radiology Routine Neoplasm of lung Expected: 05/13/2023 (Approximate), Expires: 12/27/2023 [facility] Work Phone: Comment on above: Expected: 05/13/2023 (Approximate), Expi res: 12/27/2023 Start: 04-13-2023 Behavioral Health Screening Behavioral Health Screening [facility] Start: 04-13-2023 Depression Assessment Depression Assessment [facility] Start: 12-12-2022 Covid-19 Vaccine ( season) Covid-19 Vaccine () [facility] Start: 12-12-2022 Influenza vaccination [facility] Start: 06-06-2022 Adult depression screening assessment DEPRESSION SCREENING [facility] Start: 06-06-2022 End: 06-06-2022 CREATININE BLD CREATININE BLD Lab Routine Non-small cell cancer of left lung (HCC) Expected: 06/06/2022, Expires: 06/06/2022 [facility] Work Phone: Comment on above: Expected: 06/06/2022, Expires: Start: 06-06-2022 End: 07-06-2022 Ct thorax w/contrast material CT CHEST W IVCON Radiology Routine Non-small cell cancer of left lung (HCC) Neoplasm of lung Expected: 06/06/2022, Expires: 07/06/2022 [facility] Work Phone: Comment on above: Expected: 06/06/2022, Expires: 3 Start: 04-24-2022 End: 06-24-2022 SARS-CoV-2 (COVID-19) RNA [Presence] in Respiratory specimen by KRUNAL with probe detection INTERMEDIATE RAPID COVID Microbiology Routine Preoperative examination Expected: 04/24/2022, Expires: 06/24/2022 [facility] Work Phone: Comment on above: Expected: 04/24/2022, Expires: 3 Start: 04-22-2022 End: 06-22-2022 Basic metabolic 2000 panel - Serum or Plasma BASIC METABOLIC PNL Lab STAT Lung mass Expected: 04/22/2022, Expires: 06/22/2022 [facility] Work Phone: Comment on above: Expected: 04/22/2022, Expires: 3 Start: 04-22-2022 End: 06-22-2022 CBC W Auto Differential panel - Blood CBC + DIFF Lab STAT Lung mass Expected: 04/22/2022, Expires: 06/22/2022 [facility] Work Phone: Comment on above: Expected: 04/22/2022, Expires: 3 Start: 04-13-2022 DEPRESSION ASSESSMENT DEPRESSION ASSESSMENT [facility] Start: 12-12-2021 Influenza vaccination INFLUENZA (#1) [facility] Start: 2021 RSV Vaccine (1 - 1-dose 60+ series) RSV Vaccine (1 - 1-dose 60+ series) [facility] Start: 04-13-2021 DEPRESSION ASSESSMENT DEPRESSION ASSESSMENT [facility] Start: 03-02-2021 DIABETES SCREEN DIABETES SCREEN [facility] Start: 08-26-2011 SHINGRIX VACCINE (1 of 2) SHINGRIX VACCINE (1 of 2) [facility] Start: 2006 COLOGUARD (FIT-DNA) COLOGUARD (FIT-DNA) [facility] Start: 2006 Colonoscopy COLONOSCOPY [facility] Start: 2006 COLORECTAL CANCER SCREENING COLORECTAL CANCER SCREENING [facility] Start: [address] COLONOGRAPHY [facility] Start: 2006 FECAL OCCULT BLOOD FECAL OCCULT BLOOD [facility] Start: 2006 Lipid panel Lipid Screening [facility] Start: 2006 LIPID SCREEN LIPID SCREEN [facility] Start: 2006 Screening for malignant neoplasm of colon [facility] Start: 2006 SIGMOIDOSCOPY SIGMOIDOSCOPY [facility] Start: 2001 Mammography MAMMOGRAM [facility] Start: 2001 Screening for malignant neoplasm of breast Mammogram Screening [facility] Start: 08-26-1991 HPV TESTING HPV TESTING [facility] Start: 08-26-1991 Screening for malignant neoplasm of cervix HPV Testing [facility] Start: 08-26-1991 Zoledronic acid therapy ALPHA-1 ANTITRYPSIN DEFICIENCY SCREENING [facility] Start: 1982 PAP TESTING PAP TESTING [facility] Start: 1982 Screening for malignant neoplasm of cervix [facility] Start: 1980 Urine microalbumin profile [facility] Start: 08-26-1979 ANNUAL PCP TEAM CHRONIC DISEASE VISIT ANNUAL PCP TEAM CHRONIC DISEASE VISIT [facility] Start: 08-26-1979 Anxiety Screening Anxiety Screening [facility] Start: 08-26-1979 Depression Screening Depression Screening [facility] Start: 08-26-1979 HEPATITIS C SCREENING HEPATITIS C SCREENING [facility] Start: 08-26-1979 Hepatitis C screening Hepatitis C Screening [facility] Start: 08-26-1979 HIV SCREENING HIV SCREENING [facility] Start: 08-26-1979 HIV screening HIV Screening [facility] Start: 08-26-1979 SPIROMETRY SPIROMETRY [facility] Start: 08-26-1967 PNEUMOCOCCAL (1 - PCV) PNEUMOCOCCAL (1 - PCV) [facility] Start: 08-26-1967 Pneumococcal vaccination Pneumococcal Vaccine (1 of 2 - PCV) [facility] Start: 1966 COVID-19 VACCINE (1) COVID-19 VACCINE (1) [facility] Start: 02-25-1962 COVID-19 VACCINE (#1) COVID-19 VACCINE (#1) [facility] Bx/exc lymph node op en superficial BIOPSY/REMOVAL, LYMPH NODE(S) Procedures ALEKS Non-small cell cancer of left lung (HCC) 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) Ordered: 09/21/2023 [facility] Work Phone: Comment on above: Ordered: 09/21/2023 End: 12-26-2024 CT Chest W contrast IV CT CHEST W IVCON Radiology Routine Malignant neoplasm of unspecified part of unspecified bronchus or lung (HCC) 1 Occurrences starting 11/27/2023 until 12/26/2024 [facility] Comment on above: 1 Occurrences starting 11/27/2023 until 12/26/2024 End: 05-22-2023 Ct thorax w/o contrast material CT CHEST WO IVCON Radiology Routine Lung mass 1 Occurrences starting 04/22/2022 until 05/22/2023 [facility] Work Phone: Comment on above: 1 Occurrences starting 04/22/2022 until 05/22/2023 CYTOLOGY NON-HEAD SAMPLER [facility] Work Phone: Comment on above: Release Upon Ordering for 1 Occurrences starting 05/09/2022, 1 completed End: 04-22-2023 ECG COMPLETE ECG COMPLETE ECG STAT Lung mass 1 Occurrences starting 04/22/2022 until 04/22/2023 [facility] Work Phone: Comment on above: 1 Occurrences starting 04/22/2022 until 04/22/2023 Patient Education Chronic Obstru ctive Pulmonary Disease (COPD) (DC) Levofloxacin (Systemic) Pneumonia, Adult (DC) [facility] Work Phone: Patient referral [facility] Work Phone: End: 03-22-[address] attenuation skull base mid-thigh NM PET/CT SKULL-THIGH INITIAL Radiology Routine Neoplasm of lung 1 Occurrences starting 02/21/2022 until 03/22/2023 [facility] Work Phone: Comment on above: 1 Occurrences starting 02/21/2022 until 03/22/2023 End: 09-15-2024 PET+CT Guidance for localization of tumor of Skull base to mid-thigh-- W 18F-FDG IV NM PET/CT SKULL-THIGH SUBSEQUENT Radiology Routine Malignant neoplasm of unspecified part of unspecified bronchus or lung (HCC) 1 Occurrences starting 08/17/2023 until 09/15/2024 [facility] Work Phone: Comment on above: 1 Occurrences starting 08/17/2023 until 09/15/2024 End: 12-26-2024 PET+CT Guidance for localization of tumor of Skull base to mid-thigh-- W 18F-FDG IV NM PET/CT SKULL-THIGH SUBSEQUENT Radiology Routine Malignant neoplasm of unspecified part of unspecified bronchus or lung (HCC) 1 Occurrences starting 11/27/2023 until 12/26/2024 [facility] Work Phone: Comment on above: 1 Occurrences starting 11/27/2023 until 12/26/2024 SARS-CoV-2 (COVID-19 ) RNA [Presence] in Respiratory specimen by KRUNAL with probe detection SELF CHECK COVID Microbiology Routine Lung mass Ordered: 04/22/2022 [facility] Work Phone: Comment on above: Ordered: 04/22/2022 SURGICAL PATHOLOGY [facility] Work Phone: Comment on above: Release Upon Ordering for 1 Occurrences starting 05/09/2022, 1 completed End: 09-16-2023 SURGICAL PATHOLOGY [facility] Work Phone: Comment on above: ONCE for 1 Occurrences starting 09/16/19 24 until 09/16/2023, 1 completed [facility] Immunizations Immunization Date Immunization Notes Care Provider Roma ricks 02-27-2023 influenza virus vacc ine, unspecified formulation Pac 1 Work Phone: [facility] 03-04-2022 influenza, injectabl e, quadrivalent, preservative free Vitor Kaur MD Work Phone: [facility] 03-04-2022 influenza virus vacc ine, unspecified formulation Abdi Israel MD Work Phone: [facility] 03-19-2021 influenza, injectabl e, quadrivalent, preservative free Vitor Kaur MD Work Phone: [facility] 02-22-2021 influenza virus vacc ine, unspecified formulation Vitor Kaur MD Work Phone: [facility] 03-02-2020 Influenza, injectabl e, Madin [place] Canine Kidney, preservative free, quadrivalent Vitor Kaur MD Work Phone: [facility] 02-02-2019 Influenza, injectabl e, Madin Bushra Canine Kidney, preservative free, quadrivalent Vitor Kaur MD Work Phone: [facility] 03-02-2018 influenza, injectabl e, quadrivalent, contains preservative Abdi Israel MD Work Phone: [facility] Payers Date Payer Category Payer Self-pay [id number] 2018 Medicaid [facility] [employer] [id number] 2018-Present [phone] [address] [place] [address] Medicaid [id number] 2018 Medicaid [id number] 1961 Unknown [id number] 1961 Unknown [id number] 1961 Unknown [id number] 1961 Unknown [id number] 1961 Unknown [id number] 1961 Unknown [id number] 1961 Unknown [id number] [id number] 1961 Unknown [id number] [id number] 1961 Unknown [id number] [id number] 1961 Unknown [id number] [id number] 1961 Unknown [id number] 1961 Unknown [id number] [id number] 1959 Self-pay [id number] 1959 Unknown [id number] 1959 Unknown [id number] Unknown [id number] Social History Date Type Detail Facility Start: 03-02-2018 End: 03-14-2022 Tobacco smoking status NHIS Ex-smoker [facility] Start: 04-13-1977 End: 04-13-2012 History of tobacco use Current smoker [facility] Start: 03-02-2018 End: 11-27-2022 Cigarettes smoked current (pack per day) - Reported 1.5 [facility] Start: 03-02-2018 End: 03-14-2022 Tobacco use and exposure Smokeless tobacco non-user [facility] Start: 06-06-2021 End: 10-27-2023 Alcohol intake Current drinker of alcohol (finding) [facility] Start: 1960 Sex Assigned At Not on file C [facility] Start: 05-07-2021 End: 03-14-2022 Exposure to SARS-CoV-2 (event) Not sure [facility] Start: 04-13-1977 End: 04-13-2012 History of tobacco use Cigarette Smoker [facility] Work Phone: Start: 03-14-2022 End: 11-27-2022 Sex Assigned At [facility] Adult Depression Screening Assessment 0 [facility] Start: 1960 Sex Assigned At Female F [facility] Clinical Notes 05-14-2011 to 12-07-2023 Teo Craft MD - 12/07/2023 12:20 AM EDTTelephone Encounter - Zamudio Sec, Rodney - 11/30/2023 8:22 AM EDTTelephone Encounter - Robb Lowe, [facility] - 11/30/2023 8:22 AM EDT Note Date & Type Note Facility 12-07-2023 Note HNO ID: [id number] Author: TEO CRAFT MD Service: ? Author Type: Physician Type: Progress Notes Filed: 12/07/2023 00:32 Note Text: [facility] Consult This consult was requested by Abdi Israel MD for an opinion regarding left neck lymphadenopathy. . My final recommendations will be communicated to the requesting provider by way of shared EMR or letter via the [place] mail. HPI: CINTHIA Guerrero is an 63 year old female who presented to the clinic with history of NSCLC and PET avid lymph nodes in the left neck of unclear significance. She can feel one of the nodes in left neck. Otherwise no head and neck symptoms. She had needle biopsy of the lymph node left level 5 which showed - FINAL DIAGNOSIS Lymph node, left level 5, biopsy: - Fragments of lymphoid tissue; negative for neoplasm (see comment). PAST MEDICAL HISTORY No date: COPD (chronic obstructive pulmonary disease) (HCC) No date: Former smoker No date: Lung cancer (HCC) No date: Supplemental oxygen dependent PAST SURGICAL HISTORY 1972: APPENDECTOMY No date: BRONCHOSCOPY Comment: 2022 1984: SNGL 2011: COLONOSCOPY Current Outpatient Medications Medication Sig Dispense Refill predniSONE 10 mg tablet pack 5 tabs per day for 3 days, 4 tabs per day for 3 ays, 3 tabs perday for 3 days, 2 tabs per day for 3 days, 1 tab a day for 3 days, 1/2 tab a day for 4 days Orally Once a day for 19 days budesonide (PULMICORT) 1 mg/2 mL nebulizer solution INHALE 1 VIAL VIA NEBULIZER TWICE A DAY montelukast (SINGULAIR) 10 mg tablet Take 10 mg by mouth daily at bedtime. 11 ipratropium/albuterol sulfate (DUONEB INHALATION) Inhale as instructed. albuterol (PROVENTIL) 2.5 mg/0.5 mL nebulizar solution PEDIATRIC ASTHMA Inhale 2.5-5 mg as instructed as directed. Cetirizine 10 mg cap Take by mouth. Theophylline SR (MI-24) 400 mg 24 hr capsule Take 200 mg by mouth once daily. 12 iv contrast (will be provided with radiology [...] contrast administration guidelines link. 1 Each 0 No current facility-administered medications for this visit. ALLERGIES No Known Allergies FAMILY HISTORY Problem Relation Age of Onset Asthma No Family History DVT No Family History Cancer No Family History Anesthesia Problems No Family History Social History Tobacco Use Smoking status: Former Current packs/day: 0.00 Average packs/day: 1.5 packs/day for 35.0 years (52.5 ttl pk-yrs) Types: Cigarettes Start date: 1977 Quit date: 2013 Years since quittin.6 Smokeless tobacco: Never Substance Use Topics Alcohol use: Yes Alcohol/week: 3.0 - 4.0 standard drinks of alcohol Types: 3 - 4 Cans of Beer (12oz) per week Drug use: No REVIEW OF RADIOLOGICAL FILMS AND RECORDS: PET scan from September 01, 2023 was personally reviewed there very low left sided posterior neck FDG avid nodes. They are quite small maybe a centimeter at most but do have high avidity. PHYSICAL EXAM: Vitals - There were no vitals taken for this visit. Constitutional - General Appearance: well developed, well nourished, without obvious deformities Communication: speaks with a normal voice without hoarseness Head AND Face - Overall: no obvious scars, lesions or masses Parotid and submandibular glands: no masses or tenderness Facial strength: normal and equal bilaterally Ear, Nose, Mouth AND Throat - Ears: both left and right external auditory canals and TM's are normal, no external deformities Nasal exam: mucosa is pink, septum is midline, visible turbinates are normal on anterior rhinoscopy Oral Cavity and oropharynx: mucosa, hard and soft palates, tongue, tonsil area, posterior pharyngeal wall, lips and gums are without lesions Neck: There is 1 small maybe 1 cm but palpable node in left level 5 I cannot palpate the second one. There are no other masses in the neck. Thyroid: no asymmetry, thyromegaly, or thyroid nodules on palpation Cranial Nerves: II: Pupillary reflexes normal III, IV, : EOM normal V: 1,2,3: normal sensation VII: Normal strength in all divisions IX, X: Normal voice, palatal elevation and sensation XI: Shoulder strength normal XII: Tongue mobility normal Neck Ultrasound: 12/07/2023 Ultrasound Machine: ServiceMax Transducer: Linear 11 MHz Regions examined: cervical lymph nodes Sagittal and transverse views were obtained. Color and power Doppler were applied when indicated. Left neck: For surgical planning I evaluated the left cervical lymph nodes with the ultrasound. Identified 2 separate lymph nodes we (more content not included)... [facility] 12-07-2023 History of Presen t illness Narrative [facility] Consult This consult was requested by Abdi Israel MD for an opinion regarding left neck lymphadenopathy. . My final recommendations will be communicated to the requesting provider by way of shared EMR or letter via the [place] mail. HPI: CINTHIA Guerrero is an 63 year old female who presented to the clinic with history of NSCLC and PET avid lymph nodes in the left neck of unclear significance. She can feel one of the nodes in left neck. Otherwise no head and neck symptoms. She had needle biopsy of the lymph node left level 5 which showed - FINAL DIAGNOSIS Lymph node, left level 5, biopsy: - Fragments of lymphoid tissue; negative for neoplasm (see comment). PAST MEDICAL HISTORY No date: COPD (chronic obstructive pulmonary disease) (HCC) No date: Former smoker No date: Lung cancer (HCC) No date: Supplemental oxygen dependent PAST SURGICAL HISTORY 1972: APPENDECTOMY No date: BRONCHOSCOPY Comment: 2022 1984: SNGL 2011: COLONOSCOPY Current Outpatient Medications Medication Sig Dispense Refill predniSONE 10 mg tablet pack 5 tabs per day for 3 days, 4 tabs per day for 3 ays, 3 tabs perday for 3 days, 2 tabs per day for 3 days, 1 tab a day for 3 days, 1/2 tab a day for 4 days Orally Once a day for 19 days budesonide (PULMICORT) 1 mg/2 mL nebulizer solution INHALE 1 VIAL VIA NEBULIZER TWICE A DAY montelukast (SINGULAIR) 10 mg tablet Take 10 mg by mouth daily at bedtime. 11 ipratropium/albuterol sulfate (DUONEB INHALATION) Inhale as instructed. albuterol (PROVENTIL) 2.5 mg/0.5 mL nebulizar solution PEDIATRIC ASTHMA Inhale 2.5-5 mg as instructed as directed. Cetirizine 10 mg cap Take by mouth. Theophylline SR (MI-24) 400 mg 24 hr capsule Take 200 mg by mouth once daily. 12 iv contrast (will be provided with radiology [...] contrast administration guidelines link. 1 Each 0 No current facility-administered medications for this visit. ALLERGIES No Known Allergies FAMILY HISTORY Problem Relation Age of Onset Asthma No Family History DVT No Family History Cancer No Family History Anesthesia Problems No Family History Social History Tobacco Use Smoking status: Former Current packs/day: 0.00 Average packs/day: 1.5 packs/day for 35.0 years (52.5 ttl pk-yrs) Types: Cigarettes Start date: 1977 Quit date: 2012 Years since quittin.6 Smokeless tobacco: Never Substance Use Topics Alcohol use: Yes Alcohol/week: 3.0 - 4.0 standard drinks of alcohol Types: 3 - 4 Cans of Beer (12oz) per week Drug use: No REVIEW OF RADIOLOGICAL FILMS AND RECORDS: \PET scan from September 01, 2023 was personally reviewed there very low left sided posterior neck FDG avid nodes. They are quite small maybe a centimeter at most but do have high avidity. PHYSICAL EXAM: Vitals - There were no vitals taken for this visit. Constitutional - General Appearance: well developed, well nourished, without obvious deformities Communication: speaks with a normal voice without hoarseness Head & Face - Overall: no obvious scars, lesions or masses Parotid and submandibular glands: no masses or tenderness Facial strength: normal and equal bilaterally Ear, Nose, Mouth & Throat - Ears: both left and right external auditory canals and TM's are normal, no external deformities Nasal exam: mucosa is pink, septum is midline, visible turbinates are normal on anterior rhinoscopy Oral Cavity and oropharynx: mucosa, hard and soft palates, tongue, tonsil area, posterior pharyngeal wall, lips and gums are without lesions Neck: There is 1 small maybe 1 cm but palpable node in left level 5 I cannot palpate the second one. There are no other masses in the neck. Thyroid: no asymmetry, thyromegaly, or thyroid nodules on palpation Cranial Nerves: II: Pupillary reflexes normal III, IV, : EOM normal V: 1,2,3: normal sensation VII: Normal strength in all divisions IX, X: Normal voice, palatal elevation and sensation XI: Shoulder strength normal XII: Tongue mobility normal Neck Ultrasound: 12/07/2023 Ultrasound Machine: ServiceMax Transducer: Linear 11 MHz Regions examined: cervical lymph nodes Sagittal and transverse views were obtained. Color and power Doppler were applied when indicated. Left neck: For surgical planning I evaluated the left cervical lymph nodes with the ultrasound. Identified 2 separate lymph nodes were normal measured 0.79 x 0.51 x 1.15 centimeters it was very mobile and would roll when I placed the ultrasound over it. The second was even more ovoid in shape it was 1.69 cm x 0.34 cm by 1.25. while these nodes are low within the neck they do seem to be surgically accessible. Procedure performed by Oz Villegas ASSESSMENT: 63 y/o F with left neck nodes that are FDG avid but small, she has a history of treated non-small cell lung cancer and her oncology team would like to know if these nodes represent metastatic cancer. I discussed that we can schedule excisional biopsy of these left-sided nodes. They are in the region of the spinal accessory nerve and also sensation nerves for the neck. We discussed this as well as the other risks. All risks, benefits, and alternatives to the above mentioned procedure were discussed with the patient and informed consent was obtained. PLAN: Consented today Surgical request and pre-op orders placed Medical Decision Making: Problems: High: Illness/injury w/ threat to life/body function Data: Unique test result(s) reviewed: 1 Unique test(s) ordered: 3+ Risk: Moderate: Moderate risk from testing/treatment Medical Decision Making Level: 4 - Moderate Teo Craft MD documented in this encounter [facility] 11-30-2023 Telephone encounter Note Yes she has caresource unfornatuly. [facility] 11-30-2023 Miscellaneous Notes Yes she has caresource unfornatuly. Patient is called and scheduled for all appointments Signed and added a CT chest as well. Thanks! Abdi Rodney: Please schedule Omaira for a PET scan then follow up with Dr. Israel. Dr. Israel: Please sign pended PET order as we discussed today. Anita Pressley RN Spoke with Ms. Guerrero ... Will plan for a CT chest after she is recovered from her procedure and path is final. Thanks! Abdi Pt called in requesting to speak to Dr Israel. She is scheduled for surgery Thursday for her lymph nodes. She said she has been having more issues with her breathing and can not remember what her scan had shown in her lungs that she had back in August. Dr Israel- please call pt to review this with her again. She would appreciate a call ALEKS. Thank you documented in this encounter [facility] 11-30-2023 Telephone encounter Note Patient is called and scheduled for all appointments [facility] 11-27-2023 Telephone encounter Note Signed and added a CT chest as well. Thanks! Abdi [facility] 11-27-2023 Telephone encounter Note Rodney: Please schedule Omaira for a PET scan then follow up with Dr. Israel. Dr. Israel: Please sign pended PET order as we discussed today. Anita Pressley RN [facility] 11-19-2023 Telephone encounter Note Person Calling:Omaira Reason for Call: requesting a work excuse for her daughter Kendal Ruiz fir 11/17 & 11/18. Pt Phone #: [phone] Pharmacy Name and # : Pt last seen: Visit date not found Ananya HEARD [facility] 11-19-2023 Miscellaneous Notes Person Calling:Omaira Reason for Call: requesting a work excuse for her daughter Kendal Ruiz fir 11/17 & 11/18. Pt Phone #: [phone] Pharmacy Name and # : Pt last seen: Visit date not found Ananya HEARD documented in this encounter [facility] 11-18-2023 Note HNO ID: [id number] Author: DORON FLORENTINO MD Service: ? Author Type: Anesthesiologist Type: Anesthesia Procedure Notes Filed: 11/18/2023 16:00 Note Text: ANESTHESIOLOGY PROCEDURE NOTE Airway General Information Procedure Start Time/Medication Administration: 11/18/2023 3:51 PM Procedure End Time: 11/18/2023 3:52 PM Patient location during procedure: OR Timeout Performed Pre-procedure: timeout performed Consent Obtained: Yes Patient identity confirmed: arm band and patient Staffing Anesthesiologist: Doron Florentino MD Performed by: anesthesiologist Indications and Patient Condition Indications for airway management: anesthesia Preoxygenated: yes anesthesia circuit Method: asleep Difficult Mask: No Final Airway Details Final airway type: endotracheal airway Final Endotracheal Airway: ETT Cuffed: yes Successful intubation technique: video laryngoscopy Devices used: [employer] Endotracheal tube insertion site: oral Blade size: #3 ETT size (mm): 7.0 Measured from: lips Measurement (cm): 21 Placement verified by: capnometry Cormack-Lehane Classification: grade I - full view of glottis Number of attempts at approach: 1 Airway trauma: Upper right tooth is loose. Airway not difficult Comments ETT insertsion by medical student Marilu Morrison. For the intubation procedure, I was physically present for the entire procedure.. Doron Florentino MD SIGNATURE: Doron Florentino MD PATIENT NAME: CINTHIA Guerrero DATE: November 18, 2023 TIME: 3:55 PM CSN: [id number] [facility] 11-17-2023 Instructions Brie Kaur PA-C - 11/17/2023 3:21 PM EDT PATIENT PREOPERATIVE INSTRUCTIONS Teo Craft MD has scheduled you for your procedure at this surgery center: [facility] Scheduling Office: [phone] --[id number] [place], [place] [address]. Please read below carefully for your personalized instructions. Arrival Time for Surgery: - To obtain your arrival time for surgery, call your physician's office the day before your surgery. - If your surgery is scheduled for Thursday, call the Thursday before. Your surgeon s rivet tapping machine operator will tell you what time to call the office. - If you have not reached the departmental rivet tapping machine operator by 5 P.M., call [phone] after 5 P.M. the day before your surgery. Dietary Restrictions: - No solid food after midnight. - You may have 12 ounces of clear liquids (water, clear juices such as apple juice or gatorade, carbonated beverages, clear tea, black coffee, jello) until 2 hours before scheduled arrival at facility. Medications: Unless instructed differently below, stay on all of your medications until your surgery. If you start any new medications after today's visit, please contact your surgeon. Pre-Surgery Med Instructions Medication Instructions predniSONE 10 mg tablet pack Take the day of surgery with a small sip of water budesonide (PULMICORT) 1 mg/2 mL nebulizer solution Use nebulizer day of surgery. montelukast (SINGULAIR) 10 mg tablet Take the day of surgery with a small sip of water ipratropium/albuterol sulfate (DUONEB INHALATION) Use nebulizer day of surgery. albuterol (PROVENTIL) 2.5 mg/0.5 mL nebulizar solution PEDIATRIC ASTHMA Continue - take as you normally do. Cetirizine 10 mg cap Do not take the day of surgery Theophylline SR (MI-24) 200 mg 24 hr capsule Do not take the day of surgery Blood Thinning Medications: - Stop NSAIDS (Ibuprofen, Advil, Aleve, Motrin, Celebrex, Mobic, etc.) 7 days before surgery, as directed by your surgeon. - Stop Aspirin 7 days before surgery, as directed by your surgeon. - Stop Vitamin E, ALL multi-vitamins, herbals and dietary supplements 7 days before surgery. - You may take Tylenol (Acetaminophen) or any of your pain medications that do not contain aspirin or NSAIDS as needed. Important Reminders: - If you are prescribed inhalers for breathing, continue using them. - Candy, mints, and tobacco products are NOT permitted the morning of surgery. - Hearing aids, dentures and glasses may be worn the morning of surgery. - NO jewelry, body piercings, makeup, hairpins or contacts are to be worn the day of surgery. If you develop symptoms such as a fever, cold, or flu, or have other changes to your health within TWO DAYS of scheduled surgery or the morning of surgery, please contact the surgery center above. Personal Belongings: -Please have photo ID and insurance cards. -If you do not have a copy of advance directives on file with us, please bring a copy with you on the day of surgery. - Leave ALL valuables and money at home or with family members. For Outpatient Procedures: - YOU MUST HAVE A RESPONSIBLE MILKING SYSTEM INSTALLER TAKE YOU HOME. A PROJECT EXECUTIVE OR CARPENTER SHIP CANNOT BE MADE A RESPONSIBLE MILKING SYSTEM INSTALLER. - We recommend that a responsible person stays with you overnight to take care of you. - You cannot stay in a hotel alone after outpatient surgery. You will not be permitted to have your surgery, if you do not have someone to take care of you. Please be aware that emergency situations arise, which may delay or change your surgical time. If this happens, we will notify you as soon as possible and regret any inconvenience. If you already have an Advance Directive, please fax a copy to [phone] or email to for it to be added to your chart. If you do not have an Advance Directive, you can find the appropriate form and more information at [email or web address]. We recommend that you complete the Advance Directive form found on the website and bring it with you the day of your surgery. It can be witnessed and scanned into your chart that day. documented in this encounter [facility] 11-17-2023 History and physical note Images from the original note were not included. [facility] HISTORY AND PHYSICAL EXAMINATION SERVICE DATE: 11/17/2023 SERVICE TIME: 3:00 PM PRIMARY CARE PHYSICIAN: Adithya Kenyon MD Assessment Patient has the following medical conditions which may affect geovanna-operative course: Non-small cell cancer of left lung (HCC) Assessment: 2019, treated with SBRT. COPD, severe (HCC) Assessment: Compliant on Singulair, theophylline, Pulmicort BID and DuoNeb 4x per day. On continuous supplemental oxygen, 2L via NC. Follows with outside pulm at [facility], Dr. Valery DAVIS in October per pt. Diminished breath sounds bilaterally throughout, no wheezing. SpO2 95% on 2L O2. 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 Pt reports she called transit department clerk's office because she felt like her breathing was bad , pt unable to elaborate as to what she meant by her breathing being bad . Pt stated that she feels like the hot, humid weather is making her breathing problems progress . Denies increased SOB or cough. Former smoker Assessment: Quit 2013, 52.5 pack year hx. Supplemental oxygen dependent Assessment: On continuous supplemental O2, 2L via NC. Cabrera Activity Status Index: METS: Take care of self; that is eating, dressing, bathing, using the toilet (2.75 METs) DASI Score: 2.75 (Chronic APPLE 2/2 severe COPD and chronic resp failure requiring supplemental O2) Patient confirms chest pain or undue shortness of breath with the above physical activity. Clinical Frailty Scale: 5. Mildly frail STOP-Bang Score: Patient over 50 years old Denies snoring loudly Denies feeling tired, fatigued, or sleepy during the daytime Has not been observed to stop breathing or choking/gasping during sleep Denies having high blood pressure BMI less than or equal to 35 kg/m^2 Does not have a large neck Non-male patient STOP-Bang Score: 1 [id number] Score: Age: <65 Sex: female CHF history: No Hypertension history: No Stroke/TIA/thromboembolism history: No Vascular disease history: No Diabetes history: No [id number] Score: 1 ANESTHESIA FINDINGS: Intubation History: No history of difficult intubation. No abnormal airway history Significant Anesthesia Considerations: none Airway History: No history of difficult airway No abnormal airway history I - PHYSICAL EVALUATION AIRWAY Patient intubated: No. Tracheostomy tube not present Mallampati: III. TM distance: >3 FB. Neck ROM: full ROM without neurological symptoms. Mouth opening: adequate. Short neck: no. Thick neck: no Lip Bite Test: I Microretrognathia/Micronagthia/R ecessed Chin: No DENTAL Dental findings: teeth intact. II - ANESTHESIA PLAN Anesthetic Plan: other Anesthetic plan additional comments: *PACC/TCI - anesthesia choice. Beta Brittany Monitoring Plan Post Procedure Analgesic Plan Prepared for Surgery: optimally prepared for surgery, pending [see comment]. DOS REVIEW OF LABS and ECG. Patient was seen for PACC the day before scheduled procedure. CONSULTS: Patient does not require consults for optimization at this time Planned Anesthetic: other anesthesia choice The Following Tests/Procedures Have Been Initiated: Orders placed by surgeon/surgical service in [facility]. Orders Placed This Encounter Complete Blood Count and Differential Standing Status: Future Number of Occurrences: 1 Standing Expiration Date: 02/16/2024 BMP Standing Status: Future Number of Occurrences: 1 Standing Expiration Date: 02/16/2024 REASON FOR VISIT: CINTHIA Guerrero is a 63 year old female who is scheduled for Procedure(s): BIOPSY OR EXCISION LYMPH NODE(S) OPEN, DEEP CERVICAL (Left) at the request of Dr. Teo Craft for consultation. My final recommendation will be communicated back to the requesting physician by way of shared medical record or letter. Subjective The patient has the following: ACTIVE PROBLEM LIST Lung Nodule, Solitary Centrilobular Emphysema (Hcc) Chronic Respiratory Failure With Hypoxia (Hcc) Non-Small Cell Cancer of Left Lung (Hcc) Copd, Severe (Hcc) Supplemental Oxygen Dependent Former Smoker COVID-19 Immunization Status Overdue - Covid-19 Vaccine ( season) Never done No completion, postpone, frequency change, or communication history exists for this topic. CHIEF COMPLAINT: lymphadenopathy HPI: CINTHIA Guerrero is a 63 year old female presenting for pre-anesthesia consultation. Pt has history of lung cancer. She was found to have few hypermetabolic left lower cervical/supraclavicular lymph nodes suspicious for metastases on recent PET. Above procedure recommended to manage symptoms. Procedure scheduled on 11/18/23 (per pt, surgery currently 12/16/23 in [facility]) at . REVIEW OF SYSTEMS: General: No weight loss, malaise or fevers. Neurological: Positive for: seizures (1980s - during 2/2 hypoglycemia). Negative for: multiple sclerosis, Parkinson's disease, TIA and strokes. Respiratory: +SELENE lung cancer - 2019, treated with SBRT Positive for: COPD (on Singulair, theophylline, Pulmicort BID, Duoneb 4x per day, follows with outside pulm Dr. Valery DAVIS in October per pt), dyspnea, home oxygen and tobacco use (quit 2012). Patient's COPD severity: severe. Patient is on 2 liter(s) of home O2. Negative for: current cough, pneumonia within 6 weeks, URI < 2 weeks and obstructive sleep apnea. Cardiovascular: No history of HTN requiring medication, no history of angina, CHF, TN, cardiac surgery or stents. Denies rest pain, gangrene or revascularization/amputation for PVD. No history of cardiovascular symptoms or problems. GI: No history of GI symptoms or problems. No history of esophageal varices, recent ascites, or ETOH greater than 2 drinks per day. : No history of dysuria, frequency or incontinence, stones or chronic kidney disease. No difficulty urinating, nocturia > 1 time per night or hematuria. Endocrine: Positive for: steroid for chronic problem (currently on prednisone taper per outside pulm, currently on prednsione 40 mg). Negative for: diabetes mellitus, hyperthyroidism and hypothyroidism. Hematology: No history of bleeding or clotting disorder. Patient is not taking anti-coagulation or platelet medications. No history of hematological symptoms or problems. Oncology: See HPI. +H/o lung CA Psych: Positive for: anxiety. Musculoskeletal: Negative for joint pain or swelling, back pain or muscle pain. Skin: Negative for lesions, rash and itching. PAST MEDICAL HISTORY No date: COPD (chronic obstructive pulmonary disease) (HCC) No date: Former smoker No date: Lung cancer (HCC) No date: Supplemental oxygen dependent PAST SURGICAL HISTORY 1972: APPENDECTOMY No date: BRONCHOSCOPY Comment: 2022 1984: SNGL 2011: COLONOSCOPY FAMILY HISTORY Problem Relation Age of Onset Asthma No Family History DVT No Family History Cancer No Family History Anesthesia Problems No Family History Social History Tobacco Use Smoking status: Former Packs/day: 1.50 Years: 35.00 Additional pack years: 0.00 Total pack years: 52.50 Types: Cigarettes Quit date: 2012 Years since quittin.6 Smokeless tobacco: Never Substance Use Topics Alcohol use: Yes Alcohol/week: 3.0 - 4.0 standard drinks of alcohol Types: 3 - 4 Cans of Beer (12oz) per week Drug use: No Prior to Admission medications as of 11/17/23 1504 Medication Sig Last Dose Taking predniSONE 10 mg tablet pack 5 tabs per day for 3 days, 4 tabs per day for 3 ays, 3 tabs perday for 3 days, 2 tabs per day for 3 days, 1 tab a day for 3 days, 1/2 tab a day for 4 days Orally Once a day for 19 days Taking Yes iv contrast (will be provided with radiology [...] in the CT contrast administration guidelines link. Taking Yes budesonide (PULMICORT) 1 mg/2 mL nebulizer solution INHALE 1 VIAL VIA NEBULIZER TWICE A DAY Taking Yes montelukast (SINGULAIR) 10 mg tablet Take 10 mg by mouth daily at bedtime. Taking Yes ipratropium/albuterol sulfate (DUONEB INHALATION) Inhale as instructed. Taking Yes albuterol (PROVENTIL) 2.5 mg/0.5 mL nebulizar solution PEDIATRIC ASTHMA Inhale 2.5-5 mg as instructed as directed. Taking Yes Cetirizine 10 mg cap Take by mouth. Taking Yes Theophylline SR (MI-24) 400 mg 24 hr capsule Take 200 mg by mouth once daily. Taking Differently Yes No medication comments found. ALLERGIES No Known Allergies Objective PHYSICAL EXAM: General: alert and oriented. Pertinent negatives noted - not distressed. Chronically ill-appearing. Skin: normal color, no rash or lesions. HEENT: EOM intact and pupils equal round. Pertinent negatives noted - no carotid bruit. Cardiovascular: Pulse characterized as tachy.Pertinent negatives noted - no murmur. No radial pulse abnormalities. Respiratory: Pertinent negatives noted - no wheezing. Diminished breath sounds bilaterally throughout. Wearing supplemental oxygen, 2L via NC. Abdomen: Pertinent negatives noted - not distended. Extremities: no deformity, no edema or tenderness, no joint swelling or clubbing. Neurological: normal cognition and motor skills. Gait not observed, in wheelchair.. PAIN ASSESSMENT: VITALS: BP 121/64 Pulse 118 Temp (Src) 97.2 (Temporal) Resp 16 Ht 5' 4 (1.63m) Wt 93 lb 4.1 oz (42.3kg) SpO2 95[2l]% BMI 16.00 kg/(m^2). Diagnostic tests reviewed for today's visit: Lab Value Units Date High Low HB 11.8 g/dL 09/14/2023 15.5 11.5 HCT 38.5 % 09/14/2023 46.0 36.0 WBC 7.28 k/uL 09/14/2023 11.00 3.70 PLT 288 k/uL 09/14/2023 400 150 NA No results within date range. K No results within date range. GLUC No results within date range. BUN No results within date range. CREAT No results within date range. PTSEC No results within date range. INR No results within date range. APTT No results within date range. ALT No results within date range. AST No results within date range. TBILI No results within date range. TSH No results within date range. Lab Value Units Date High Low HCGQT No results within date range. UHCG No results within date range. HCG, BODY* No results within date range. Lab Value Units Date High Low ABORHD No results within date range. ABSCREEN No results within date range. No results found for: HBA1C No results found for this or any previous visit (from the past 8760 hour(s)). No results found for this or any previous visit (from the past 18253 hour(s)). Instructions Given to Patient: Instructions located in the after visit summary. Patient given verbal and written preop instructions and voices comprehension and compliance. SIGNATURE: Brie Kaur PA-C PATIENT NAME: CINTHIA Guerrero DATE: 11/17/2023 TIME: 3:00 PM PAGER/CONTACT #: [facility] 11-17-2023 History and physical note Images from the original note were not included. [facility] HISTORY AND PHYSICAL EXAMINATION SERVICE DATE: 11/17/2023 SERVICE TIME: 3:00 PM PRIMARY CARE PHYSICIAN: Adithya Kenyon MD Assessment Patient has the following medical conditions which may affect geovanna-operative course: Non-small cell cancer of left lung (HCC) Assessment: 2019, treated with SBRT. COPD, severe (HCC) Assessment: Compliant on Singulair, theophylline, Pulmicort BID and DuoNeb 4x per day. On continuous supplemental oxygen, 2L via NC. Follows with outside pulm at [facility], Dr. Valery DAVIS in October per pt. Diminished breath sounds bilaterally throughout, no wheezing. SpO2 95% on 2L O2. 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 Pt reports she called transit department clerk's office because she felt like her breathing was bad , pt unable to elaborate as to what she meant by her breathing being bad . Pt stated that she feels like the hot, humid weather is making her breathing problems progress . Denies increased SOB or cough. Former smoker Assessment: Quit 2012, 52.5 pack year hx. Supplemental oxygen dependent Assessment: On continuous supplemental O2, 2L via NC. Cabrera Activity Status Index: METS: Take care of self; that is eating, dressing, bathing, using the toilet (2.75 METs) DASI Score: 2.75 (Chronic APPLE 2/2 severe COPD and chronic resp failure requiring supplemental O2) Patient confirms chest pain or undue shortness of breath with the above physical activity. Clinical Frailty Scale: 5. Mildly frail STOP-Bang Score: Patient over 50 years old Denies snoring loudly Denies feeling tired, fatigued, or sleepy during the daytime Has not been observed to stop breathing or choking/gasping during sleep Denies having high blood pressure BMI less than or equal to 35 kg/m^2 Does not have a large neck Non-male patient STOP-Bang Score: 1 [id number] Score: Age: <65 Sex: female CHF history: No Hypertension history: No Stroke/TIA/thromboembolism history: No Vascular disease history: No Diabetes history: No [id number] Score: 1 ANESTHESIA FINDINGS: Intubation History: No history of difficult intubation. No abnormal airway history Significant Anesthesia Considerations: none Airway History: No history of difficult airway No abnormal airway history I - PHYSICAL EVALUATION AIRWAY Patient intubated: No. Tracheostomy tube not present Mallampati: III. TM distance: >3 FB. Neck ROM: full ROM without neurological symptoms. Mouth opening: adequate. Short neck: no. Thick neck: no Lip Bite Test: I Microretrognathia/Micronagthia/R ecessed Chin: No DENTAL Dental findings: teeth intact. II - ANESTHESIA PLAN Anesthetic Plan: other Anesthetic plan additional comments: *PACC/TCI - anesthesia choice. Beta Brittany Monitoring Plan Post Procedure Analgesic Plan Prepared for Surgery: optimally prepared for surgery, pending [see comment]. DOS REVIEW OF LABS and ECG. Patient was seen for PACC the day before scheduled procedure. CONSULTS: Patient does not require consults for optimization at this time Planned Anesthetic: other anesthesia choice The Following Tests/Procedures Have Been Initiated: Orders placed by surgeon/surgical service in [facility]. Orders Placed This Encounter Complete Blood Count and Differential Standing Status: Future Number of Occurrences: 1 Standing Expiration Date: 02/16/2024 BMP Standing Status: Future Number of Occurrences: 1 Standing Expiration Date: 02/16/2024 REASON FOR VISIT: CINTHIA Guerrero is a 63 year old female who is scheduled for Procedure(s): BIOPSY OR EXCISION LYMPH NODE(S) OPEN, DEEP CERVICAL (Left) at the request of Dr. Teo Craft for consultation. My final recommendation will be communicated back to the requesting physician by way of shared medical record or letter. Subjective The patient has the following: ACTIVE PROBLEM LIST Lung Nodule, Solitary Centrilobular Emphysema (Hcc) Chronic Respiratory Failure With Hypoxia (Hcc) Non-Small Cell Cancer of Left Lung (Hcc) Copd, Severe (Hcc) Supplemental Oxygen Dependent Former Smoker COVID-19 Immunization Status Overdue - Covid-19 Vaccine ( season) Never done No completion, postpone, frequency change, or communication history exists for this topic. CHIEF COMPLAINT: lymphadenopathy HPI: CINTHIA Guerrero is a 63 year old female presenting for pre-anesthesia consultation. Pt has history of lung cancer. She was found to have few hypermetabolic left lower cervical/supraclavicular lymph nodes suspicious for metastases on recent PET. Above procedure recommended to manage symptoms. Procedure scheduled on 11/18/23 (per pt, surgery currently 12/16/23 in [facility]) at . REVIEW OF SYSTEMS: General: No weight loss, malaise or fevers. Neurological: Positive for: seizures (1980s - during 2/2 hypoglycemia). Negative for: multiple sclerosis, Parkinson's disease, TIA and strokes. Respiratory: +SELENE lung cancer - 2019, treated with SBRT Positive for: COPD (on Singulair, theophylline, Pulmicort BID, Duoneb 4x per day, follows with outside pulm Dr. Valery DAVIS in October per pt), dyspnea, home oxygen and tobacco use (quit 2012). Patient's COPD severity: severe. Patient is on 2 liter(s) of home O2. Negative for: current cough, pneumonia within 6 weeks, URI < 2 weeks and obstructive sleep apnea. Cardiovascular: No history of HTN requiring medication, no history of angina, CHF, TN, cardiac surgery or stents. Denies rest pain, gangrene or revascularization/amputation for PVD. No history of cardiovascular symptoms or problems. GI: No history of GI symptoms or problems. No history of esophageal varices, recent ascites, or ETOH greater than 2 drinks per day. : No history of dysuria, frequency or incontinence, stones or chronic kidney disease. No difficulty urinating, nocturia > 1 time per night or hematuria. Endocrine: Positive for: steroid for chronic problem (currently on prednisone taper per outside pulm, currently on prednsione 40 mg). Negative for: diabetes mellitus, hyperthyroidism and hypothyroidism. Hematology: No history of bleeding or clotting disorder. Patient is not taking anti-coagulation or platelet medications. No history of hematological symptoms or problems. Oncology: See HPI. +H/o lung CA Psych: Positive for: anxiety. Musculoskeletal: Negative for joint pain or swelling, back pain or muscle pain. Skin: Negative for lesions, rash and itching. PAST MEDICAL HISTORY No date: COPD (chronic obstructive pulmonary disease) (HCC) No date: Former smoker No date: Lung cancer (HCC) No date: Supplemental oxygen dependent PAST SURGICAL HISTORY 1972: APPENDECTOMY No date: BRONCHOSCOPY Comment: 2022 1984: SNGL 2011: COLONOSCOPY FAMILY HISTORY Problem Relation Age of Onset Asthma No Family History DVT No Family History Cancer No Family History Anesthesia Problems No Family History Social History Tobacco Use Smoking status: Former Packs/day: 1.50 Years: 35.00 Additional pack years: 0.00 Total pack years: 52.50 Types: Cigarettes Quit date: 2012 Years since quittin.6 Smokeless tobacco: Never Substance Use Topics Alcohol use: Yes Alcohol/week: 3.0 - 4.0 standard drinks of alcohol Types: 3 - 4 Cans of Beer (12oz) per week Drug use: No Prior to Admission medications as of 11/17/23 1504 Medication Sig Last Dose Taking predniSONE 10 mg tablet pack 5 tabs per day for 3 days, 4 tabs per day for 3 ays, 3 tabs perday for 3 days, 2 tabs per day for 3 days, 1 tab a day for 3 days, 1/2 tab a day for 4 days Orally Once a day for 19 days Taking Yes iv contrast (will be provided with radiology [...] in the CT contrast administration guidelines link. Taking Yes budesonide (PULMICORT) 1 mg/2 mL nebulizer solution INHALE 1 VIAL VIA NEBULIZER TWICE A DAY Taking Yes montelukast (SINGULAIR) 10 mg tablet Take 10 mg by mouth daily at bedtime. Taking Yes ipratropium/albuterol sulfate (DUONEB INHALATION) Inhale as instructed. Taking Yes albuterol (PROVENTIL) 2.5 mg/0.5 mL nebulizar solution PEDIATRIC ASTHMA Inhale 2.5-5 mg as instructed as directed. Taking Yes Cetirizine 10 mg cap Take by mouth. Taking Yes Theophylline SR (MI-24) 400 mg 24 hr capsule Take 200 mg by mouth once daily. Taking Differently Yes No medication comments found. ALLERGIES No Known Allergies Objective PHYSICAL EXAM: General: alert and oriented. Pertinent negatives noted - not distressed. Chronically ill-appearing. Skin: normal color, no rash or lesions. HEENT: EOM intact and pupils equal round. Pertinent negatives noted - no carotid bruit. Cardiovascular: Pulse characterized as tachy.Pertinent negatives noted - no murmur. No radial pulse abnormalities. Respiratory: Pertinent negatives noted - no wheezing. Diminished breath sounds bilaterally throughout. Wearing supplemental oxygen, 2L via NC. Abdomen: Pertinent negatives noted - not distended. Extremities: no deformity, no edema or tenderness, no joint swelling or clubbing. Neurological: normal cognition and motor skills. Gait not observed, in wheelchair.. PAIN ASSESSMENT: VITALS: BP 121/64 Pulse 118 Temp (Src) 97.2 (Temporal) Resp 16 Ht 5' 4 (1.63m) Wt 93 lb 4.1 oz (42.3kg) SpO2 95[2l]% BMI 16.00 kg/(m^2). Diagnostic tests reviewed for today's visit: Lab Value Units Date High Low HB 11.8 g/dL 09/14/2023 15.5 11.5 HCT 38.5 % 09/14/2023 46.0 36.0 WBC 7.28 k/uL 09/14/2023 11.00 3.70 PLT 288 k/uL 09/14/2023 400 150 NA No results within date range. K No results within date range. GLUC No results within date range. BUN No results within date range. CREAT No results within date range. PTSEC No results within date range. INR No results within date range. APTT No results within date range. ALT No results within date range. AST No results within date range. TBILI No results within date range. TSH No results within date range. Lab Value Units Date High Low HCGQT No results within date range. UHCG No results within date range. HCG, BODY* No results within date range. Lab Value Units Date High Low ABORHD No results within date range. ABSCREEN No results within date range. No results found for: HBA1C No results found for this or any previous visit (from the past 8760 hour(s)). No results found for this or any previous visit (from the past 54553 hour(s)). Instructions Given to Patient: Instructions located in the after visit summary. Patient given verbal and written preop instructions and voices comprehension and compliance. SIGNATURE: Brie Kaur PA-C PATIENT NAME: CINTHIA Guerrero DATE: 11/17/2023 TIME: 3:00 PM PAGER/CONTACT #: documented in this encounter [facility] 11-16-2023 Telephone encounter Note Spoke with Ms. Guerrero ... Will plan for a CT chest after she is recovered from her procedure and path is final. Thanks! Abdi [facility] 11-16-2023 Telephone encounter Note Pt called in requesting to speak to Dr Israel. She is scheduled for surgery Thursday for her lymph nodes. She said she has been having more issues with her breathing and can not remember what her scan had shown in her lungs that she had back in August. Dr Israel- please call pt to review this with her again. She would appreciate a call ALEKS. Thank you [facility] 10-27-2023 Nurse Note Tobacco Use: 1.5 packs/day, for 35 years. Quit 04/13/2012. Types: Cigarettes Was smoking cessation packet given? N/A - Patient is a non-smoker or quit >1 year ago. Was a referral initiated?N/A Patient is a non-smoker [facility] 10-27-2023 Nurse Note Tobacco Use: 1.5 packs/day, for 35 years. Quit 04/13/2012. Types: Cigarettes Was smoking cessation packet given? N/A - Patient is a non-smoker or quit >1 year ago. Was a referral initiated?N/A Patient is a non-smoker documented in this encounter [facility] 09-29-2023 Telephone encounter Note Patient is scheduled and they have been calling her with appointment. [facility] 09-29-2023 Miscellaneous Notes Patient is scheduled and they have been calling her with appointment. Email sent to cancer answer line for scheduling thanks Tiff- Dr Israel signed ENT order for Dr Craft. Please schedule and let him know when this consult can be done. Thank you! Silvia Jha RN Dr Israel- please sign pended ENT order so Rodney can contact Dr Craft for consult. Silvia Jha RN Order pended- please review before signing. Silvia Jha RN Images from the original note were not included. Abdi Israel MD Stock, Khushboo Linda MD, Cc: Anita Pressley LPN; Silvia Jha, LUCIE; Rodney Rinaldi Hi Dr. Mcintyre - I appreciate the update and the context for the pathology results. Rashid/Ang/Tiff - please refer Ms. Guerrero to Dr. Craft for consideration of excisional biopsy. Thanks! Abdi Dailey please place orders, thank you! documented in this encounter [facility] 09-25-2023 Telephone encounter Note Email sent to cancer answer line for scheduling thanks [facility] 09-24-2023 Telephone encounter Note Tiff- Dr Israel signed ENT order for Dr Craft. Please schedule and let him know when this consult can be done. Thank you! Silvia Jha RN [facility] 09-23-[address] Israel- please sign pended ENT order so Rodney can contact Dr Craft for consult. Silvia Jha, RN [facility] 09-21-2023 Telephone encounter Note Order pended- please review before signing. Silvia Jha RN [facility] 09-21-2023 Telephone encounter Note Images from the original note were not included. Abdi Israel MD Stock, Sarah E, MD, MD Cc: Anita Pressley LPN; Silvia Jha, RN; Rodney Rinaldi Dr. - I appreciate the update and the context for the pathology results. Rashid/Ang/Tiff - please refer Ms. Guerrero to Dr. Craft for consideration of excisional biopsy. Thanks! Abdi Dailey please place orders, thank you! [facility] 09-16-2023 Surgery Surgical operation note Summary: Left cervical lymph node biopsy BRIEF OPERATIVE / PROCEDURE NOTE LOG ID: [id number] SURGERY/PROCEDURE DATE: 09/16/2023 INCISION/PROCEDURE START TIME: 10:42 AM INCISION CLOSE/PROCEDURE END TIME: 11:02 AM SURGEON(S)/PROCEDURALIST(S) AND DIRECTOR OF RESPIRATORY THERAPY(S): Surgeon(s) and Role: * Khushboo Mcintyre MD, MD - Primary No Additional Staff SURGERY/PROCEDURE(S): Ultrasound guided biopsy of left cervical lymph node ANESTHESIA: Local, Lidocaine FINDINGS: Palpable mildly enlarge left level 5b node with loss of hilum. Small hematoma around the node after sampling. ESTIMATED BLOOD LOSS: <5mL SPECIMENS: Core 18g x 6 in formalin for surgical pathology COMPLICATIONS: None CLOSURE TECHNIQUE: Primary PRE-OP/PRE-PROCEDURE DIAGNOSIS: cervical adenopathy in setting of prior lung ca POST-OP/POST-PROCEDURE DIAGNOSIS: Same as Preop SIGNATURE: Khushboo Mcintyre MD PATIENT NAME: CINTHIA Guerrero DATE: September 16, 2023 TIME: 11:06 AM [facility] Work Phone: 09-16-2023 Surgical operatio n note Summary: Left cervical lymph node biopsy BRIEF OPERATIVE / PROCEDURE NOTE LOG ID: [id number] SURGERY/PROCEDURE DATE: 09/16/2023 INCISION/PROCEDURE START TIME: 10:42 AM INCISION CLOSE/PROCEDURE END TIME: 11:02 AM SURGEON(S)/PROCEDURALIST(S) AND DIRECTOR OF RESPIRATORY THERAPY(S): Surgeon(s) and Role: * Khushboo Mcintyre MD, MD - Primary No Additional Staff SURGERY/PROCEDURE(S): Ultrasound guided biopsy of left cervical lymph node ANESTHESIA: Local, Lidocaine FINDINGS: Palpable mildly enlarge left level 5b node with loss of hilum. Small hematoma around the node after sampling. ESTIMATED BLOOD LOSS: <5mL SPECIMENS: Core 18g x 6 in formalin for surgical pathology COMPLICATIONS: None CLOSURE TECHNIQUE: Primary PRE-OP/PRE-PROCEDURE DIAGNOSIS: cervical adenopathy in setting of prior lung ca POST-OP/POST-PROCEDURE DIAGNOSIS: Same as Preop SIGNATURE: Khushboo Mcintyre MD PATIENT NAME: CINTHIA Guerrero DATE: September 16, 2023 TIME: 11:06 AM documented in this encounter [facility] 09-16-2023 Instructions Formatting of th is note might be different from the original. AMBULATORY PATIENT EDUCATION TOPIC: Survival Skills: HEALTH PROMOTION: Complication prevention READINESS TO LEARN COGNITIVE ABILITY: Alert and oriented MOTIVATION TO LEARN: Interested FAMILY SUPPORT: High - Very involved in pt care INSTRUCTION PROVIDED TO: Patient PATIENT LEARNS BEST BY: Verbal Instruction FACTORS AFFECTING LEARNING: None PHYSICAL LIMITATIONS AFFECTING LEARNING: None LEARNING RESPONSE DIAGNOSIS: Multiple left cervical lymph nodes METHOD OF INSTRUCTION: Verbal instruction PATIENT / FAMILY RESPONSE: Verbalizes understanding of: PRE-PROCEDURE INSTRUCTIONS-Correct action to take to follow pre-procedure instructions FOLLOW-UP PLAN: Complete - No need for follow-up SUPPLEMENTAL MATERIAL: None REFERRAL (RECOMMENDATION): None Electronically Signed By: Rashid Howell RN In Department: HOSP MAIN [id number] [facility] 09-16-2023 Miscellaneous Notes AMBULATORY PATIENT EDUCATION TOPIC: Survival Skills: HEALTH PROMOTION: Complication prevention READINESS TO LEARN COGNITIVE ABILITY: Alert and oriented MOTIVATION TO LEARN: Interested FAMILY SUPPORT: High - Very involved in pt care INSTRUCTION PROVIDED TO: Patient PATIENT LEARNS BEST BY: Verbal Instruction FACTORS AFFECTING LEARNING: None PHYSICAL LIMITATIONS AFFECTING LEARNING: None LEARNING RESPONSE DIAGNOSIS: Multiple left cervical lymph nodes METHOD OF INSTRUCTION: Verbal instruction PATIENT / FAMILY RESPONSE: Verbalizes understanding of: PRE-PROCEDURE INSTRUCTIONS-Correct action to take to follow pre-procedure instructions FOLLOW-UP PLAN: Complete - No need for follow-up SUPPLEMENTAL MATERIAL: None REFERRAL (RECOMMENDATION): None Electronically Signed By: Rashid Howell RN In Department: HOSP MAIN [id number] documented in this encounter [facility] 09-14-2023 Telephone encounter Note Thanks! Abdi [facility] 09-14-2023 Miscellaneous Notes Thanks! Abdi Patient is scheduled 09/15 for biopsy Hey Girl, just checking on this one thanks Signed - thanks! Abdi Yes please - Abdi Images from the original note were not included. Abdi Israel MD Graves, Ariana, LPN Cc: Silvia Jha, RN; Rodney Rinaldi Please set Ms. Guerrero up for an US guided biopsy of one of the lymph nodes in the neck seen on PET CT at either [facility] or [place]. Thanks! Abdi documented in this encounter [facility] 09-14-2023 Telephone encounter Note Patient is scheduled 09/15 for biopsy [facility] 09-14-2023 Nurse Note Pre- e instructions: Address: [address] Contacted patient and confirmed appt. for biopsy scheduled on 09/16/23, at [facility]. Diet: Procedure to be done with local anesthetic, you may eat, drink and take medications as prescribed the day of this procedure. Medications: IF ok with your Prescribing Provider: RADIOLOGY RECOMMENDS THESE MEDICATION RESTRICTIONS : None Labs: Lab work needs to be drawn by 09/15/23 at any [facility] Lab. Arrival: Please bring your Photo ID and Insurance Card. A general consent may need to be signed. Arrival at 8:30am to desk QB-1 ([facility]) and check in for your procedure. Store Promoter/Transportation: Store Promoter not necessary Written instructions provided to patient via [employer] If you have any questions please call [phone] [facility] 09-14-2023 Nurse Note Pre- e instructions: Address: [address] Contacted patient and confirmed appt. for biopsy scheduled on 09/16/23, at [facility]. Diet: Procedure to be done with local anesthetic, you may eat, drink and take medications as prescribed the day of this procedure. Medications: IF ok with your Prescribing Provider: RADIOLOGY RECOMMENDS THESE MEDICATION RESTRICTIONS : None Labs: Lab work needs to be drawn by 09/15/23 at any [facility] Lab. Arrival: Please bring your Photo ID and Insurance Card. A general consent may need to be signed. Arrival at 8:30am to desk QB-1 ([facility]) and check in for your procedure. Store Promoter/Transportation: Store Promoter not necessary Written instructions provided to patient via [employer] If you have any questions please call [phone] documented in this encounter [facility] 09-14-2023 Telephone encounter Note Spoke to pt and scheduled biopsy for 09/16/23. [facility] 09-14-2023 Miscellaneous Notes Spoke to pt and scheduled biopsy for 09/16/23. RADIOLOGIST REQUEST / APPROVAL FORM STAFF RADIOLOGIST: Dr. Niko Gatica PROCEDURE TO BE DONE UNDER: US PROCEDURE REQUESTED: FNA Requested PROCEDURE: Approved TIME SLOT NEEDED: 1 Hour NOTES: None SPECIAL LABS/ PROCESSING: None Pre-procedure labs: CBC: ordered INR: not needed COVID: not needed SIR Bleeding risk category for this procedure: intermediate-high risk. Reference from [facility]: https://[facility].policytech.[email or web address] [email or web address] STAFF SIGNATURE: Osito Galicia MD DATE: September 09, 2023 TIME: 9:31 AM BX. COORDINATOR INFORMATION LAB RESULTS: No results found for: INR No results found for: APTT Platelet Count (k/uL) Date Value 04/24/2022 401 03/02/2018 234 Current Outpatient Medications Medication Sig iv contrast (will be provided with radiology [...] in the CT contrast administration guidelines link. budesonide (PULMICORT) 1 mg/2 mL nebulizer solution [...] Cetirizine 10 mg cap Take by mouth. Theophylline SR (MI-24) 400 mg 24 hr capsule Take 400 mg by mouth once daily. No current facility-administered medications for this visit. ALLERGIES No Known Allergies FILMS SENT TO WORKSTATION: GUIDELINES FOR HOLDING ANTI-PLATELET AND ANTI- COAGULATION THERAPY: none on file NURSE SIGNATURE: Yakelin Onofre LPN DATE: September 08, 2023 TIME: 11:34 AM Summary: Cervical lymph node bx RADIOLOGY CALL CENTER INTAKE DATE: 09/08/2023 TIME: 10:44am REQUESTING STAFF: Abdi Israel MD PHONE/PAGER: [phone] SPECIFICS OF THE REQUEST:Cervical lymph node bx SPECIAL REQUESTS: TISSUE SAMPLE, LABWORK: N/A IS THIS REQUEST PART OF A RESEARCH PROTOCOL: No MEDICAL DIAGNOSIS: Malignant neoplasm of unspecified part of unspecified bronchus or lung (HCC) [C34.90] TYPE AND DATE OF THE EXAM THAT IS THE BASIS OF THE REQUEST: PET 09/01/2023 IMAGING: [facility] [place] Note to all persons requesting biopsies: All biopsy requests will be scheduled as quickly as possible, based on the clinical urgency, availability of appointment times, the need to hold anti-thrombolytic therapy (aspirin, blood thinners) and the patient s schedule, including the need for an available class a regional drivers. If a percutaneous biopsy or drainage is not felt to be safe or an alternative method for establishing a diagnosis is possible, this will be discussed directly with the requesting physician. documented in this encounter [facility] 09-14-2023 Telephone encounter Note Hebeto Girl, just checking on this one thanks [facility] 09-09-2023 Telephone encounter Note RADIOLOGIST REQUEST / APPROVAL FORM STAFF RADIOLOGIST: Dr. Niko Gatica PROCEDURE TO BE DONE UNDER: US PROCEDURE REQUESTED: FNA Requested PROCEDURE: Approved TIME SLOT NEEDED: 1 Hour NOTES: None SPECIAL LABS/ PROCESSING: None Pre-procedure labs: CBC: ordered INR: not needed COVID: not needed SIR Bleeding risk category for this procedure: intermediate-high risk. Reference from [facility]: [email or web address].[email or web address] STAFF SIGNATURE: Osito Galicia MD DATE: September 09, 2023 TIME: 9:31 AM T [facility] Work Phone: 09-08-2023 Telephone encounter Note BX. COORDINATOR INFORMATION LAB RESULTS: No results found for: INR No results found for: APTT Platelet Count (k/uL) Date Value 04/24/2022 401 03/02/2018 234 Current Outpatient Medications Medication Sig iv contrast (will be provided with radiology [...] in the CT contrast administration guidelines link. budesonide (PULMICORT) 1 mg/2 mL nebulizer solution [...] Cetirizine 10 mg cap Take by mouth. Theophylline SR (MI-24) 400 mg 24 hr capsule Take 400 mg by mouth once daily. No current facility-administered medications for this visit. ALLERGIES No Known Allergies FILMS SENT TO WORKSTATION: GUIDELINES FOR HOLDING ANTI-PLATELET AND ANTI- COAGULATION THERAPY: none on file NURSE SIGNATURE: Yakelin Onofre LPN DATE: September 08, 2023 TIME: 11:34 AM T [facility] 09-08-2023 Telephone encounter Note Summary: Cervical lymph node bx RADIOLOGY CALL CENTER INTAKE DATE: 09/08/2023 TIME: 10:44am REQUESTING STAFF: Abdi Israel MD PHONE/PAGER: [phone] SPECIFICS OF THE REQUEST:Cervical lymph node bx SPECIAL REQUESTS: TISSUE SAMPLE, LABWORK: N/A IS THIS REQUEST PART OF A RESEARCH PROTOCOL: No MEDICAL DIAGNOSIS: Malignant neoplasm of unspecified part of unspecified bronchus or lung (HCC) [C34.90] TYPE AND DATE OF THE EXAM THAT IS THE BASIS OF THE REQUEST: PET 09/01/2023 IMAGING: [facility] [place], [facility] Note to all persons requesting biopsies: All biopsy requests will be scheduled as quickly as possible, based on the clinical urgency, availability of appointment times, the need to hold anti-thrombolytic therapy (aspirin, blood thinners) and the patient s schedule, including the need for an available class a regional drivers. If a percutaneous biopsy or drainage is not felt to be safe or an alternative method for establishing a diagnosis is possible, this will be discussed directly with the requesting physician. [facility] 09-08-2023 Telephone encounter Note Signed - thanks! Abdi [facility] 09-08-2023 Telephone encounter Note Yes please - Abdi [facility] 09-08-2023 Telephone encounter Note Images from the original note were not included. Abdi Israel MD Graves, Ariana, LPN Cc: Silvia Jha RN; Rodney Rinaldi Please set Ms. Guerrero up for an US guided biopsy of one of the lymph nodes in the neck seen on PET CT at either [facility] or [place]. Thanks! Abdi [facility] 09-01-2023 Note HNO ID: [id number] Author: SAHARA BRICENO RT(R) Service: ? Author Type: Technologist Type: Progress Notes Filed: 09/01/2023 13:24 Note Text: RADIOLOGY SERVICE PROGRESS NOTE SERVICE DATE: 09/01/2023 SERVICE TIME: 1:23 PM PATIENT IDENTITY VERIFICATION COMPLETED USING TWO (2) STANDARD IDENTIFIERS: Name and Date of confirmed by patient verbally POST EXAM PIV STATUS: Discontinued PROCEDURE TYPE: NM INJECT: PET/CT BODY SCAN. 6.6 mCi F18 FDG. No other medications given.. ADMINISTRATION TIME: 1248 PATIENT DISCHARGED TO: Ambulatory patient, left IN department area. A Diagnostic radioactive procedure has taken place, with no further precautions necessary other than routine body substance precautions. More information regarding radiation safety can be found using this link: [email or web address] SIGNATURE: Sahara Briceno RT(R) PATIENT NAME: CINTHIA Guerrero DATE: September 01, 2023 TIME: 1:23 PM PAGER/CONTACT #: [facility] 08-18-2023 Telephone encounter Note Seen patient checked her mychart yesterday for appointments. [facility] 08-18-2023 Miscellaneous Notes Seen patient checked her mychart yesterday for appointments. Called patient and left message with date and time of Time, due to her insurance It has to be put out 2 weeks I told her to please call me back if she has any questions thank you. Scan from July was CXR. Per LORENZO, no need to get images. PSS- I spoke to pt and she is expecting your call to arrange PET here. Thank you Silvia Jha RN Definite changes in the left chest from previous available scan in April. Ordered PET to further characterize findings and please request CT Chest images from 07/2023. Thanks! Abdi Pt called in to let us know she had a CT at [facility] ordered per Dr Kenyon yesterday. He called her today to let her know that there was something concerning and he wanted her to contact our office. CT report printed from [facility] and images requested. Dr Israel- please advise when you have had a chance to review. Thank you Silvia Jha RN documented in this encounter [facility] 08-17-2023 Telephone encounter Note Called patient and left message with date and time of Time, due to her insurance It has to be put out 2 weeks I told her to please call me back if she has any questions thank you. [facility] 08-17-2023 Telephone encounter Note Scan from July was CXR. Per LORENZO, no need to get images. PSS- I spoke to pt and she is expecting your call to arrange PET here. Thank you Silvia Jha RN [facility] 08-17-2023 Telephone encounter Note Definite changes in the left chest from previous available scan in April. Ordered PET to further characterize findings and please request CT Chest images from 07/2023. Thanks! Abdi [facility] 08-14-2023 Telephone encounter Note Pt called in to let us know she had a CT at [facility] ordered per Dr Kenyon yesterday. He called her today to let her know that there was something concerning and he wanted her to contact our office. CT report printed from [facility] and images requested. Dr Israel- please advise when you have had a chance to review. Thank you Silvia Jha RN [facility] 05-25-2023 Note HNO ID: [id number] Author: ABDI ISRAEL MD Service: ? Author Type: Physician Type: Progress Notes Filed: 06/09/2023 01:43 Note Text: Radiation Oncology - Follow Up Note PATIENT NAME: CINTHIA Guerrero PATIENT DIAGNOSIS/PATIENT IDENTIFICATION: Ms. Guerrero is a 62-year-old woman with severe COPD, who is diagnosed with Stage IA3, [id number], non-small cell lung cancer arising from a [...] to clinic today for routine follow-up approximately five years after the completion of her radiation treatments and six months since her last visit on 11/27/2022. In the interim, she had repeat CT of the chest earlier this month on 05/14/2023 which showed stable response in the treated left upper lobe lung lesion and no new definite findings concerning for recurrent or new disease. Today she reports multiple COPD exacerbations since her last visit including earlier this month and was discharged on antibiotics which she completed as well as a steroid taper on which she has 5 days remaining. She remains on supplemental oxygen at 2 L/min rgtloj-bdo-lsltd and continues on Pulmicort and albuterol rescue inhaler. He denies cough or hemoptysis or chest pain or difficulty swallowing today. She does note fatigue with stable appetite and hydration. 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 She otherwise denies any recent fevers, chills, headaches, difficulty with speech/swallowing, chest pain/palpitations, abdominal pain, nausea, vomiting, change in bowel/urinary habits, difficulty with gait/balance, recent falls, etc. The remainder of the review of systems was performed and was otherwise noncontributory. ALLERGIES ALLERGIES No Known Allergies MEDICATIONS: Current Outpatient Medications: budesonide (PULMICORT) 1 mg/2 mL nebulizer solution STIOLTO RESPIMAT 2.5-2.5 mcg/actuation mist montelukast (SINGULAIR) 10 mg tablet ipratropium/albuterol sulfate (DUONEB INHALATION) senna-docusate (SENOKOT-S) 8.6-50 mg per tablet albuterol (PROVENTIL) 2.5 mg/0.5 mL nebulizar solution PEDIATRIC ASTHMA Cetirizine 10 mg cap Theophylline SR (MI-24) 400 mg 24 hr capsule iv contrast (will be provided with radiology test) PHYSICAL EXAM: GENERAL: Middle-age woman sitting in chair in no acute distress. VITALS: Pulse 110 Temp 97.4 Resp 18 Wt 92 lb 9.5 oz (42.0kg) SpO2 96[O2 at 2L/NC]% KPS: 70 HEENT: NC/AT, anicteric sclera HEART: S1S2 LUNGS: non-labored breathing ABDOMEN: soft MUSCULOSKELETAL: no peripheral edema, moves all extremities. NEURO: no focal deficit; AANDO X3. RADIOLOGIC DATA: CT Chest (05/14/2023) ASSESSMENT AND PLAN: Ms. Guerrero is a 62-year-old woman with severe COPD, who is diagnosed with Stage IA3, [id number], non-small cell lung cancer arising from a [...] 05/14/2018 (5000 cGy in 5 fractions). Ms. uGerrero is stable from a radiation standpoint approximately 5 years out from the completion of her SBRT treatments to the left upper lobe of the chest although she continues to suffer from COPD exacerbations requiring hospitalization and steroids/antibiotics. 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 She had repeat CT imaging of the chest from earlier this month on 05/14/2023 again showing stability in the treated left upper lobe lung nodule with no other definite evidence of recurrent or new disease in the chest. I will plan to see her back in approximately a year with repeat CT of the chest. The patient is aware to contact the clinic in the interim should any questions or concerns arise. Thank you for allowing us to participate in the care of this patient. Signed by: Abdi Israel MD I spent a total of 20 minutes on the date of the service which included preparing to see the patient, xndp-gt-idna patient care, and counseling and educating the patient/family/caregiver. This document has been created with the use of voice recognition technology. It may contain inaccuracies, misspellings, inaccurate syntax or inappropriate word context that are a result of the inadequacies/shortcomings of said technology/software. [facility] 05-20-2023 Miscellaneous Notes Patient is called and scheduled for next week Pt called in and was admitted to [facility] last week. They did CT Chest. She has been waiting on insurance approval for a chest CT and will not need one now. She would like follow up arranged. Reports printed from [facility] and images requested. PSS- please call pt and arrange follow up with Dr Israel for next week. Thank you Silvia Jha RN documented in this encounter [facility] 11-27-2022 History of Presen t illness Narrative Images from the original note were not included. Radiation Oncology - Follow Up Note PATIENT NAME: CINTHIA Guerrero PATIENT DIAGNOSIS/PATIENT IDENTIFICATION: Ms. Guerrero is a 62-year-old woman with severe COPD, who is diagnosed with Stage IA3, [id number], non-small cell lung cancer arising from a [...] been following up with pulmonary therapy at [facility] and with her transit department clerk Dr. Driver and using her nebulizers. She [...] COPD, who is diagnosed with Stage IA3, [id number], non-small cell lung cancer arising from a [...] the chest. She will follow with her transit department clerk Dr. Driver to optimize her respiratory function [...] which included preparing to see the patient, vpvz-um-cctz patient care, and counseling and educating the patient/family/caregiver. This document has been created with the use of voice recognition technology. It may contain inaccuracies, misspellings, inaccurate syntax or inappropriate word context that are a result of the inadequacies/shortcomings of said technology/software. documented in this encounter [facility] 11-18-2022 Miscellaneous Notes FYI--Dr. Driver's progress note is available in Care Everywhere. Dr. Kenyon's office note to be faxed over per his office. Anita Pressley LPN Pt notified, CT canceled. Rashid working on records from Dr Kenyon and Dr Driver. Images/report being pushed from [facility]. Rosa Victoria, RN Yes, please cancel CT tomorrow. In addition to the images, please request any office notes from Dr. Kenyon as well as her transit department clerk. Thanks! Abdi Pt called for CT 11/19/22. She reports CT completed 09/24/22 at [facility]. CT chest verified and will send images/report. LORENZO: Would you like to cancel CT? Please advise Rosa Victoria RN documented in this encounter [facility] 06-26-2022 Evaluation note Encounter Date Diagnosis Assessment [...] History of lung cancer (ICD-10 - Z85.118) [facility] Other 02-20-2023 History of Present illness Narrative* Abdi Israel MD - 06/02/2022 11:53 PM EST Radiation Oncology - Follow Up Note PATIENT NAME: CINTHIA Guerrero PATIENT Signed by: Abdi Israel MD I spent a total of 20 minutes on the date of the service which included preparing to see the patient, ilny-nc-tqrv patient care, and counseling and educating the patient/family/caregiver. This document has been created with the use of voice recognition technology. It may contain inaccuracies, misspellings, inaccurate syntax or inappropriate word context that are a result of the inadequacies/shortcomings of said technology/software. documented in this encounterChildren[facility] Evaluation note* Encounter Date Diagnosis Assessment Notes [...] History of lung cancer (ICD-10 - Z85.118) [facility] Other 02-01-2023 Miscellaneous Notes* Telephone Encounter - Abdi Israel MD - 05/14/2022 10:40 PM EST Thanks! Abdi * Telephone Encounter - Kendal Sears - 05/14/2022 1:59 PM EST Records faxed to Dr. Conde. Requested images be pushed to [facility]. * Telephone Encounter - Telma Pak - 05/14/2022 1:26 PM EST Patient has been scheduled with Dr. Conde on 05/22/21. Patient has been called & made aware of appointment. Emily: Please send specified documents to Dr. Conde. Fax cover sheet in your mailbox. Thanks, Telma Pak * Telephone Encounter - Abdi Israel MD - 05/14/2022 12:06 PM EST Discussed pathology results from bronch/EBUS with the patient yesterday showing fungal/aspergillus infection. Spoke with her transit department clerk, Dr. Cross, today and agreed to refer [...] Thanks Anita Pressley LPN documented in this encounterChildren[facility] History of Present illness Narrative* Interface Note - 05/09/2022 8:00 PM EST Epic Scheduled Downtime: 05/10/2022 1:00:00 AM to 05/10/2022 3:56:00 AM documented in this encounterChildren[facility] Nurse Note* Luz Maria Blanca RN - [...] Luz Maria Blanca RN documented in this encounterChildren'[facility]01-16-[facility]23 History of Present illness Narrative* Vitor Kaur MD - 04/28/2022 3:03 PM EST VIRTUAL VISIT PROGRESS NOTE This is a virtual visit using [employer] video visit. It required patient-provider interaction for themedical decision making as documented below. Omaira Guerrero is a 61 year old female [...] eating well. COPD managed locally by a transit department clerk. HISTORY REVIEWED (electronic chart updated): PAST MEDICAL [...] Emphysema. Controlled and stable; managed by local transit department clerk. I spent a total of 60 minutes on the date of the service which included preparing to see the patient, whnc-uj-lggq patient care, completing clinical documentation, obtaining and/or reviewing separately obtained history, performing a medically appropriate examination, counseling and educating the pat ient/family/caregiver, ordering medications, tests, or procedures, communicating with other HCPs (not separately reported), independently interpreting results (not separately reported), communicatingresults to the patient/family/caregiver, and care coordination (not separately reported) Vitor Kaur MD April 28, 2022 documented in this encounterChildren'[facility]01-11-2023 Miscellaneous Notes* Telephone Encounter - Telma Pak - 04/23/2022 9:58 AM EST Patient has been scheduled for both & confirmed appt day & time. Telma Pak * Telephone Encounter - Telma Pak - 04/23/2022 9:10 AM EST Called patient to schedule her for EKG & labs per e-mail. No answer, LMOV requesting a returnedphone call. Telma Pak documented in this encounterChildren'S [facility]01-10-2023 History of Present illness Narrative* Vitor Kaur MD - 04/22/2022 3:49 PM EST Bronchoscopy Request: Please schedule patient for the following: Outpatient Visit: Bronch Only, visit not needed (last H&P Date: 04/28/2022) Bronchoscopy Procedures: Navigation Bronchoscopy (Illumisite) Diagnosis/Reason for Bronchoscopy: Lung nodule sampling only Timing: Specified date or range: After 04/28 Time Allotment/Tier: TIER 2: 2 HOUR Physician Performing Bronchoscopy: Preferably with Dr. Kaur, but can be Bronch A, B or C Needs Labs: Yes, CBC and BMP Needs EKG: Yes Needs CT prior: Yes EMN Bronchoscopy Protocol Chest CT I will try to get labs/EKG/COVID swab done at [facility] Does the pt need cardiac clearance?: No Is she on anticoagulants/anti-plt therapy?: No Nursing Considerations: (ie: residential, TB, respiratory isolation, clinical trial, Specific protocol etc.) none Additional notes to the transit coach 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 Please try to access the PET avid area if possible. Consultation request/referral by: Abdi Israel MD ([facility]) Reviewed by: PHANI Kaur MD April 22, 2022 3:49 PM Addendum: [...] - 0.96 mg/dL Final documented in this encounterChildren'S [facility]01-10-2023 Miscellaneous Notes* Telephone Encounter - Anita Pressley LPN - 04/22/2022 9:37 AM EST I called to notify Omaira that Dr. Kaur's office will be calling her to schedule bronchoscopy. Shestates she recently had the flu and her breathing was terrible at that time. She said her symptoms are improving now that she is over the flu. She denies questions at this time. Anita Pressley LPN documented in this encounterChildren'S [facility]12-02-2022 History of Present illness Narrative* Abdi Israel MD - 03/14/2022 11:44 PM EST Radiation Oncology - Follow Up Note PATIENT NAME: Omaira Guerrero PATIENT Signed by: Abdi Israel MD I spent a total of 20 minutes on the date of the service which included preparing to see the patient, tktm-lp-cwsx patient care, and counseling and educating the patient/family/caregiver. This document has been created with the use of voice recognition technology. It may contain inaccuracies, misspellings, inaccurate syntax or inappropriate word context that are a result of the inadequacies/shortcomings of said technology/software. documented in this encounterChildren'S Hospital [facility]11-11-2022 Miscellaneous Notes* Telephone Encounter - Telma Pak [...] then follow-up to review documented in this encounterChildren'S [facility]11-10-2022 Miscellaneous Notes* Telephone Encounter - Anita Pressley [...] then follow-up to review documented in this encounterChildren'S [facility]02-24-2022 History of Present illness Narrative* Abdi Israel MD - 06/06/2021 4:50 PM EST Radiation Oncology - Follow Up Note PATIENT NAME: Omaira Guerrero PATIENT DIAGNOSIS/PATIENT IDENTIFICATION: Ms. Guerrero is a 60-year-old woman with severe COPD, who is diagnosed with Stage IA3, [id number], non-small cell lung cancer arising from a [...] COPD, who is diagnosed with Stage IA3, [id number], non-small cell lung cancer arising from a [...] which included preparing to see the patient, kngq-xt-palx patient care and counseling and educating the patient/family/caregiver. This document has been created with the use of voice recognition technology. It may contain inaccuracies, misspellings, inaccurate syntax or inappropriate word context that are a result of the inadequacies/shortcomings of said technology/software. documented in this encounterChildren'S Hospital Of [facility]10-01-2021 NoteChief Complaint consultation for nevus HPI Staff [...] Cardiac arrest: Mother, Father and Sister.[facility] HospitalComment on above:Result Comment: Electronically Signed By: JIM DAVENPORT, Jose Domínguez\Date and Time Signed: 01/11/21 11:20 [id number] History general Narrative - Reported* Type Description Date Medical History COPD Surgical History appendectomy Surgical History csection Hospitalization History PNA at [facility] 05/2011 [facility] Other Evaluation note* Diagnosis Non-small cell cancer of left lung (HCC)- Primary Neoplasm of lung Neoplasm of unspecified nature of respiratory system [facility] Diagnosis Neoplasm of lung- Primary Neoplasm of unspecified nature of respiratory system documented [facility] encounter [facility]* Diagnosis Non-small cell cancer of left lung (HCC)- Primary documented in this encounter [facility]* Diagnosis Lung mass- Primary Swelling, mass, or lump in chest documented in this encounter [facility]* Diagnosis Preoperative examination- Primary Preoperative examination, unspecified Bronchiolar disease Other diseases of trachea and bronchus documented in this encounter [facility]* Diagnosis Non-small cell cancer of left lung (HCC)- Primary Lung mass Swelling, mass, or lump in chest Centrilobular emphysema (HCC) Other emphysema Bronchiolar disease Other diseases of trachea and bronchus documented in this encounter [facility]* Diagnosis Bronchiolar disease Other diseases of trachea and bronchus Lung nodule Solitary pulmonary nodule [facility]* Diagnosis Aspergillus pneumonia (HCC)- Primary Aspergillosis Non-small cell cancer of left lung (HCC) documented in this encounter [facility] note* Diagnosis Non-small cell cancer of left lung (HCC)- Primary documented in this encounter [facility] noteNo [facility] Other evaluation note* Diagnosis Neoplasm of lung- Primary Neoplasm of unspecified nature of respiratory system documented in this encounter [facility] note* Diagnosis Onset Date Resolution Status Chronic respiratory failure with hypoxia acute COPD exacerbation acute Exertional shortness of breath acute Pneumonia acute Pulmonary cachexia due to COPD acute Tachycardia acute [facility] Work Phone: evaluation note* Diagnosis Onset Date Resolution Status Acute hypoxic respiratory failure acute Cachexia acute Chronic respiratory failure with hypoxia acute COPD exacerbation acute Exertional shortness of breath acute Pneumonia acute Pulmonary cachexia due to COPD acute Tachycardia acute [facility] Work Phone: evaluycgit note* Diagnosis Malignant neoplasm of unspecified part of unspecified bronchus or lung (HCC)- Primary [facility]* Diagnosis Neoplasm- Primary Neoplasm of unspecified nature, site unspecified documented in this encounter [facility] note* Diagnosis Onset Date Resolution Status Chronic respiratory failure with hypoxia acute COPD (chronic obstructive pulmonary disease) acute [facility] Work Phone: evaluation note* Diagnosis Non-small cell cancer of left lung (HCC)- Primary 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) Secondary and unspecified malignant neoplasm of lymph nodes of head, face, and neck documented in this encounter [facility]* Diagnosis Preoperative examination- Primary Preoperative examination, unspecified 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) Secondary and unspecified malignant neoplasm of lymph nodes of head, face, and neck Non-small cell cancer of left lung (HCC) Chronic respiratory failure with hypoxia (HCC) Chronic respiratory failure COPD, severe (HCC) Chronic airway obstruction, not elsewhere classified Supplemental oxygen dependent Dependence on supplemental oxygen Former smoker Personal history of tobacco use, presenting hazards to health Non-small cell cancer of left lung (HCC) Lymphadenopathy Enlargement of lymph nodes * Assessment & Plan Note - Brie Kaur PA-C - 11/17/2023 3:30 PM EDTAssociated Problem(s): Supplemental oxygen dependent Assessment: On continuous supplemental O2, 2L via NC. * Assessment & Plan Note - Brie Kaur PA-C - 11/17/2023 3:29 PM EDTAssociated Problem(s): Former smoker Assessment: Quit 2012, 52.5 pack year hx. * Assessment & Plan Note - Brie Kaur PA-C - 11/17/2023 3:29 PM EDTAssociated Problem(s): COPD, severe (HCC) Assessment: Compliant on Singulair, theophylline, Pulmicort BID and DuoNeb 4x per day. On continuous supplemental oxygen, 2L via [place]. Follows with outside pulm at [facility], Dr. Valery DAVIS in October per pt. Diminished breath sounds bilaterally throughout, no wheezing. SpO2 95% on 2L O2. 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 Ptreports she called transit department clerk's office because she felt like her breathing was bad , pt unable to elaborate as to what she meant by her breathing being bad . Pt stated that she feels like the hot, humid weather is making her breathing problems progress . Denies increased SOB or cough. * Assessment & Plan Note - Brie Kaur PA-C - 11/17/2023 3:24 PM EDTAssociated Problem(s): Non-small cell cancer of left lung (HCC) Assessment: 2019, treated with SBRT. 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) Secondary and unspecified malignant neoplasm of lymph nodes of head, face, and neck Preoperative examination- Primary Preoperative examination, unspecified 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) Secondary and unspecified malignant neoplasm of lymph nodes of head, face, and neck Non-small cell cancer of left lung (HCC) Chronic respiratory failure with hypoxia (HCC) Chronic respiratory failure COPD, severe (HCC) Chronic airway obstruction, not elsewhere classified Supplemental oxygen dependent Dependence on supplemental oxygen Former smoker Personal history of tobacco use, presenting hazards to health [facility]* Diagnosis Malignant neoplasm of unspecified part of unspecified bronchus or lung (HCC)- Primary Preoperative examination- Primary Preoperative examination, unspecified 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) Secondary and unspecified malignant neoplasm of lymph nodes of head, face, and neck Non-small cell cancer of left lung (HCC) Chronic respiratory failure with hypoxia (HCC) Chronic respiratory failure COPD, severe (HCC) Chronic airway obstruction, not elsewhere classified Supplemental oxygen dependent Dependence on supplemental oxygen Former smoker Personal history of tobacco use, presenting hazards to health documented in this encounter [facility] Discharge instructions Additional Instructions I may not have addressed or treated all of your medical illnesses or the abnormal blood work or imaging studies during this hospitalization. Please ask your primary care provider to obtain [facility] records entirely to follow up on all of the abnormal physical, laboratory, and imaging findings that I have not addressed. Please return back to the emergency room or seek medical attention if your symptoms worsen or return. You asked me to give you the name of the lung specialist who is affiliated with [facility]. Please follow-up with Dr. Rasmussen regarding COPD, lung nodule and pulmonary care. Until you get your first appointment with Dr. Rasmussen, continue to follow-up with Dr. Driver guarding your lung nodule and COPD You would need to have follow-up on lung nodule that is seen before Discharging you from [facility] does not mean that your medical care [...] Thank you. Continue home oxygen per chronic orders.[facility] Work Phone: [facility] for referral (narrative)* Diagnostic Procedure Only (Routine) - Additional Clinical Info Needed Specialty Diagnoses / Procedures Referred By Contac t Referred To Contact MOLECULAR & FUNCTIONAL IMAGING Diagnoses Neoplasm of lung Procedures NM PET/CT SKULL-THIGH INITIAL PET IMAGING CT ATTENUATION SKULL BASE MID-THIGH Abdi Israel MD [address] [place] [address] [place] [address] Molecular & Functional Imaging [address] [place] [address] Referral ID Status Reason Start Date Expiration Date Visits Requested Visits Authorized [id number] Additional Clinical Info Needed Auto-Generat ed Referral 2 03/22/2023 1 1 [facility] for referral (narrative)* Diagnostic Procedure Only (Routine) - Additional Clinical Info Needed Specialty Diagnoses / Procedures Referred By Contac t Referred To Contact MOLECULAR & FUNCTIONAL IMAGING Diagnoses Malignant neoplasm of unspecified part of unspecified bronchus or lung (HCC) Procedures NM PET/CT SKULL-THIGH SUBSEQUENT PET IMAGING CT ATTENUATION SKULL BASE MID-THIGH Abdi Israel MD [address] [place] [address] [place] [address] [facility] & Functional Imaging [address] [place] [address] Referral ID Status Reason Start Date Expiration Date Visits Requested Visits Authorized [id number] Additional Clinical Info Needed Auto-Generat ed Referral 08/17/2023 09/15/2024 1 1 [facility] for referral (narrative)* Outpatient Procedure (Routine) - Closed Specialty Diagnoses / Procedures Referred By Contac t Referred To Contact [facility] Diagnoses Non-small cell cancer of left lung (HCC) Lymphadenopathy Procedures ECG COMPLETE ECG ROUTINE ECG W/LEAST 12 LDS W/I&R Teo Craft MD [id number] [place] [address] Referral ID Status Reason Start Date Expiration Date V isits Requested Visits Authorized [id number] Closed Auto-Generate d Referral 11/05/2023 10/26/2024 1 1 * Consult, Test, Treat (Routine) - Authorized Specialty Diagnoses / Procedures [facility]erred To Contact Diagnoses Non-small cell cancer of left lung (HCC) 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) Lymphadenopathy Procedures REFER TO [facility] PREOPERATIVE OPTIMIZATION OFFICE/OUTPATIENT [facility] 60 MINUTES Teo Craft MD [address] [place] [address] Referral ID Status Reason Start Date Expiration Date Visits Requested Visits Authorized [id number] Authorized PCP Requested Referral 11/05/2023 10/26/2024 1 1 [facility] Summary Purpose Family History No Family History Records Found Relationship Condition Age at Onset Recorded Date/T alvarez brother Coronary artery disease Unknown Heart disease Unknown father Coronary artery disease Unknown sister Coronary artery disease Unknown Advance Directives No Advanced Directives Records FoundDocuments on File Type Date Recorded Patient Rn Medical Inpatient Services Expl anation Advance Directive(s) Advance Directive(s) 03/19/2018 8:37 AM Advance Directive Response Recorded Date/ Time Advance Directives No February 11:15am Advance Directive Response Recorded Date/ Time Advance Directives No February 12:15pm Advance Directive Response Recorded Date/ Time Advance Directives No September 28 2:19pm Reason for Referral Specialty Diagnoses / Procedures [facility] IM[facility]ING Diagnoses Non-small cell cancer of left lung (HCC) Neoplasm of lung Procedures CT CHEST W IVCON DIAGNOSTIC COMPUTED TOMOGRAPHY THORAX W/CONTRAST Abdi Israel MD [address] [place] [address] Ct Imaging Referral ID Status Reason Start Date Expiration Date Visits Requested Visits Authorized [id number] Pending Review Auto-Generat ed Referral 06/06/2022 07/06/2022 1 1 Specialty Diagnoses / Procedures Referred By Contac t Referred To Contact CT IMAGING Diagnoses Lung mass Procedures CT CHEST WO IVCON DIAGNOSTIC COMPUTED TOMOGRAPHY THORAX W/O CNTRST Vitor Kaur MD [address] [place] [address] Ct Imaging Referral ID Status Reason Start Date Expiration Date Visits Requested Visits Authorized [id number] Pending Review Auto-Generat ed Referral 04/22/2022 05/22/2023 1 1 Specialty Diagnoses / Procedures Referred By Contac t Referred To Contact [facility] Diagnoses Lung mass Procedures ECG COMPLETE ECG ROUTINE ECG W/LEAST 12 LDS W/I&R Vitor Kaur MD [address] [place] [address] [facility] [place] [address] [place] [address] Referral ID Status Reason Start Date Expiration Date Visits Requested Visits Authorized [id number] Pending Review Auto-Generat ed Referral 04/22/2022 04/22/2023 1 1 Specialty Diagnoses / Procedures Referred By Contac t Referred To Contact Infectious Diseases Diagnoses Aspergillus pneumonia (HCC) Non-small cell cancer of left lung (HCC) Procedures CONSULT TO INFECTIOUS DISEASES Abdi Israel MD [address] [place] [address] [place] [address] Referral ID Status Reason Start Date Expiration Date Visits Requested Visits Authorized [id number] Ref Not Required PCP Requested Referral 05/14/2022 05/14/2023 1 1 Specialty Diagnoses / Procedures Referred By Contac t Referred To Contact CT IMAGING Diagnoses Neoplasm of lung Procedures CT CHEST W IVCON DIAGNOSTIC COMPUTED TOMOGRAPHY THORAX W/CONTRAST Abdi Israel MD [address] [place] [address] Ct Imaging [facility] Referral ID Status Reason Start Date Expiration Date Visits Requested Visits Authorized [id number] Pending Review Auto-Generat ed Referral 05/13/2023 12/27/2023 1 1 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) Procedures CONSULT TO ENT OFFICE/OUTPATIENT [facility] 60 MINUTES Abdi Israel MD [facility] [address] [id number] Referral ID Status Reason Start Date Expiration Date Visits Requested Visits Authorized [id number] Authorized PCP Requested Referral 09/24/2023 09/22/2024 1 1 Specialty Diagnoses / Procedures Referred By Contac t Referred To Contact CT IMAGING Diagnoses Malignant neoplasm of unspecified part of unspecified bronchus or lung (HCC) Procedures CT CHEST W IVCON DIAGNOSTIC COMPUTED TOMOGRAPHY THORAX W/CONTRAST Abdi Israel MD [facility] [id number] Ct Imaging [place] [address] Referral ID Status Reason Start Date Expiration Date Visits Requested Visits Authorized [id number] Authorized Auto-Generat ed Referral 12/02/2023 01/31/2024 1 1 Specialty Diagnoses / Procedures Referred By Contac t Referred To Contact MOLECULAR & FUNCTIONAL IMAGING Diagnoses Malignant neoplasm of unspecified part of unspecified bronchus or lung (HCC) Procedures NM PET/CT SKULL-THIGH SUBSEQUENT PET IMAGING CT ATTENUATION SKULL BASE MID-THIGH Abdi Israel MD [address] [place] [address] [place] [address] Molecular & Functional Imaging [address] [place] [address] Referral ID Status Reason Start Date Expiration Date V isits Requested Visits Authorized [id number] Denied Auto-Generate d Referral 12/02/2023 01/31/2024 1 0 Medications Administered Section Inactive Administered Medications - [...] cachexia due to COPD Tachycardia Chief Complaint Ref: Dr. Sonia FERNANDEZ Reason for Visit Chronic respiratory failure with hypoxia COPD (chronic obstructive pulmonary disease) Chief Complaint Ref: Dr. Scott COPD Reason for Visit Chronic respiratory failure with hypoxia COPD (chronic obstructive pulmonary disease) Chronic respiratory failure with hypoxia COPD (chronic obstructive pulmonary disease) Sleep apnea, obstructive Additional Source Comments INFORMATION SOURCE (unrecogn ized section and content) DATE CREATED AUTHOR 10/06/2017 [facility] DATE CREATED AUTHOR AUTHOR'S ORGANIZ ATION 10/09/2017 [facility] DATE CREATED AUTHOR AUTHOR'S ORGANIZ ATION 03/22/2018 [facility] DATE CREATED AUTHOR AUTHOR'S ORGANIZ ATION 03/26/2021 [facility] DATE CREATED AUTHOR AUTHOR'S ORGANIZ ATION 09/19/2022 [facility] DATE CREATED AUTHOR AUTHOR'S ORGANIZ ATION 05/31/2023 [facility] DATE CREATED AUTHOR AUTHOR'S ORGANIZ ATION 08/18/2023 [facility] DATE CREATED AUTHOR AUTHOR'S ORGANIZ ATION 09/14/2023 [facility] DATE CREATED AUTHOR AUTHOR'S ORGANIZ ATION 11/19/2023 [facility] DATE CREATED AUTHOR AUTHOR'S ORGANIZ ATION 12/11/2023 [facility] Source Comments (unrecognize d section and content) In the event this informatio n is protected by the Federal Confidentiality of Alcohol and Drug Abuse Patient Records regulations: The Federal rules restrict any use of the information to criminally investigate or prosecute any alcohol or drug abuse patient.[facility] the event this information is protected by the Federal Confidentiality of Alcohol and Drug Abuse Patient Records regulations: The Federal rules restrict any use of the information to criminally investigate or prosecute any alcohol or drug abuse patient.[facility] the event this information is protected by the Federal Confidentiality of Alcohol and Drug Abuse Patient Records regulations: The Federal rules restrict any use of the information to criminally investigate or prosecute any alcohol or drug abuse patient.[facility] the event this information is protected by the Federal Confidentiality of Alcohol and Drug Abuse Patient Records regulations: The Federal rules restrict any use of the information to criminally investigate or prosecute any alcohol or drug abuse patient.[facility] the event this information is protected by the Federal Confidentiality of Alcohol and Drug Abuse Patient Records regulations: The Federal rules restrict any use of the information to criminally investigate or prosecute any alcohol or drug abuse patient.[facility] the event this information is protected by the Federal Confidentiality of Alcohol and Drug Abuse Patient Records regulations: The Federal rules restrict any use of the information to criminally investigate or prosecute any alcohol or drug abuse patient.[facility] the event this information is protected by the Federal Confidentiality of Alcohol and Drug Abuse Patient Records regulations: The Federal rules restrict any use of the information to criminally investigate or prosecute any alcohol or drug abuse patient.[facility] the event this information is protected by the Federal Confidentiality of Alcohol and Drug Abuse Patient Records regulations: The Federal rules restrict any use of the information to criminally investigate or prosecute any alcohol or drug abuse patient.[facility] the event this information is protected by the Federal Confidentiality of Alcohol and Drug Abuse Patient Records regulations: The Federal rules restrict any use of the information to criminally investigate or prosecute any alcohol or drug abuse patient.[facility] the event this information is protected by the Federal Confidentiality of Alcohol and Drug Abuse Patient Records regulations: The Federal rules restrict any use of the information to criminally investigate or prosecute any alcohol or drug abuse patient.[facility] the event this information is protected by the Federal Confidentiality of Alcohol and Drug Abuse Patient Records regulations: The Federal rules restrict any use of the information to criminally investigate or prosecute any alcohol or drug abuse patient.[facility] the event this information is protected by the Federal Confidentiality of Alcohol and Drug Abuse Patient Records regulations: The Federal rules restrict any use of the information to criminally investigate or prosecute any alcohol or drug abuse patient.[facility] the event this information is protected by the Federal Confidentiality of Alcohol and Drug Abuse Patient Records regulations: The Federal rules restrict any use of the information to criminally investigate or prosecute any alcohol or drug abuse patient.[facility] the event this information is protected by the Federal Confidentiality of Alcohol and Drug Abuse Patient Records regulations: The Federal rules restrict any use of the information to criminally investigate or prosecute any alcohol or drug abuse patient.[facility] the event this information is protected by the Federal Confidentiality of Alcohol and Drug Abuse Patient Records regulations: The Federal rules restrict any use of the information to criminally investigate or prosecute any alcohol or drug abuse patient.[facility] Columbus[facility] the event this information is protected by the Federal Confidentiality of Alcohol and Drug Abuse Patient Records regulations: The Federal rules restrict any use of the information to criminally investigate or prosecute any alcohol or drug abuse patient.[facility] the event this information is protected by the Federal Confidentiality of Alcohol and Drug Abuse Patient Records regulations: The Federal rules restrict any use of the information to criminally investigate or prosecute any alcohol or drug abuse patient.[facility] Columbus[facility] the event this information is protected by the Federal Confidentiality of Alcohol and Drug Abuse Patient Records regulations: The Federal rules restrict any use of the information to criminally investigate or prosecute any alcohol or drug abuse patient.[facility] Columbus[facility] the event this information is protected by the Federal Confidentiality of Alcohol and Drug Abuse Patient Records regulations: The Federal rules restrict any use of the information to criminally investigate or prosecute any alcohol or drug abuse patient.[facility] ColumbusIn the event this information is protected by the Federal Confidentiality of Alcohol and Drug Abuse Patient Records regulations: The Federal rules restrict any use of the information to criminally investigate or prosecute any alcohol or drug abuse patient.[facility] ColumbusIn the event this information is protected by the Federal Confidentiality of Alcohol and Drug Abuse Patient Records regulations: The Federal rules restrict any use of the information to criminally investigate or prosecute any alcohol or drug abuse patient.[facility] ColumbusIn the event this information is protected by the Federal Confidentiality of Alcohol and Drug Abuse Patient Records regulations: The Federal rules restrict any use of the information to criminally investigate or prosecute any alcohol or drug abuse patient.[facility] Columbus[facility] the event this information is protected by the Federal Confidentiality of Alcohol and Drug Abuse Patient Records regulations: The Federal rules restrict any use of the information to criminally investigate or prosecute any alcohol or drug abuse patient.[facility] ColumbusIn the event this information is protected by the Federal Confidentiality of Alcohol and Drug Abuse Patient Records regulations: The Federal rules restrict any use of the information to criminally investigate or prosecute any alcohol or drug abuse patient.[facility] ColumbusIn the event this information is protected by the Federal Confidentiality of Alcohol and Drug Abuse Patient Records regulations: The Federal rules restrict any use of the information to criminally investigate or prosecute any alcohol or drug abuse patient.[facility] ColumbusIn the event this information is protected by the Federal Confidentiality of Alcohol and Drug Abuse Patient Records regulations: The Federal rules restrict any use of the information to criminally investigate or prosecute any alcohol or drug abuse patient.[facility] Reason for Visit (unrecogniz ed section and content) Reason Comments Lung Cancer Reason Comments Orders Reason Comments Orders Reason Comments Lung Cancer Reason Comments Appointment PreOp Bronch Reason Comments Patient Update Appointment Reason Comments Lung Cancer Lung Mass Reason Comments Appointment Specialty Diagnoses / Procedures Referred By Dwayne t Referred To Contact ADMITTING Diagnoses Bronchiolar disease Procedures [facility] INCL FLUOR GDNCE DX W/CELL WASHG SPX BRONCHOSCOPY [facility] H[address] [address] Referral ID Status Reason Start Date Expiration Date Visits Re quested Visits Authorized [id number] 1 1 Reason Comments Appointment Reason Comments Patient Update Future Appointment Reason Comments Patient Update Reason Comments Cervical lymph node bx Reason Comments Biopsy Request Specialty Diagnoses / Procedures Referred By Contac t Referred To Contact ADMITTING Diagnoses Malignant neoplasm of unspecified part of unspecified bronchus or lung (HCC) Procedures BX/EXC LYMPH NODE NEEDLE SUPERFICIAL BIOPSY OR EXCISION LYMPH NODES(S) NEEDLE SUPERFICIAL [facility] [address] [place] [address] Referral ID Status Reason Start Date Expiration Date Visits Re quested Visits Authorized [id number] 1 1 Reason Comments Appointment Confirmation Reason Comments Anesthesia Consult Reason Comments Patient Update Reason Comments New Patient Would like to discus s lymph node removal. 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) Procedures CONSULT TO ENT OFFICE/OUTPATIENT NEW HIGH MDM 60 MINUTES Abdi Israel MD [address] [place] [address] [place] [address] Referral ID Status Reason Start Date Expiration Date V isits Requested Visits Authorized [id number] Closed PCP Requested Referral 09/24/2023 09/22/2024 1 1 Reason Comments Results Care Teams (unrecognized sec tion and content) Team Status: Active Member Role Status Dates Adithya Kenyon MD Primary Care Provider Active Team Status: Inactive Member Role Status Dates Adithya Kenyon MD Primary Care Provide r, Referring Provider Active Start: September 29, 2023 End: September 29, 2023 Denver Rasmussen MD Attending Provider Active Start: September 29, 2023 End: September 29, 2023 Drug Safety Assistant Relationship Specialty Start Date End Date Adithya Kenyon MD [address] [id number] PCP - General Family Practice 02/25/18 Drug Safety Assistant Relationship Specialty Start Date End Date Adithya Kenyon MD [address] [id number] PCP - General Family Medicine 02/25/18 Drug Safety Assistant Relationship Specialty Start Date End Date Adithya Kenyon MD [address] [id number] PCP - General Family Medicine 02/25/18 Drug Safety Assistant Relationship Specialty Start Date End Date Adithya Kenyon MD [address] [id number] PCP - General Family Medicine 02/25/18 Drug Safety Assistant Relationship Specialty Start Date End Date Adithya Kenyon MD [address] [place] [place] [address] PCP - General Family Medicine 02/25/18 Drug Safety Assistant Relationship Specialty Start Date End Date Adithya Kenyon MD [address] [place] [address] PCP - General Family Medicine 02/25/18 Drug Safety Assistant Relationship Specialty Start Date End Date Adithya Kenyon MD [address] [place] [place] [address] PCP - General Family Medicine 02/25/18 Drug Safety Assistant Relationship Specialty Start Date End Date Adithya Kenyon MD [address] [place] [address] PCP - General Family Medicine 02/25/18 Drug Safety Assistant Relationship Specialty Start Date End Date Adithya Kenyon MD [address] [place] [place] [address] PCP - General Family Medicine 02/25/18 Drug Safety Assistant Relationship Specialty Start Date End Date Adithya Kenyon MD PCP - General Family Medicine 02/25/18 Drug Safety Assistant Relationship Specialty Start Date End Date Adithya Kenyon MD PCP - General Family Medicine 02/25/18 Team Status: Active Member Role Status Dates Adithya Kenyon MD Primary Care Provider Active Start: May 14, 2023 Stacia Garcia MD Emergency Provider Active Start: May 14, 2023 Ally Warner MD Admit Provider, Atte nding Provider, Other Provider Active Start: May 14, 2023 Team Status: Active Member Role Status Dates Adithya Kenyon MD Primary Care Provider Active Start: May 14, 2023 Stacia Garcia MD Emergency Provider Active Start: May 14, 2023 Ally Warner MD Admit Provider, Atte nding Provider, Other Provider Active Start: May 14, 2023 Cassandra Andersen MD Attending Provider Active Sta rt: May 14, 2023 End: May 17, 2023 Drug Safety Assistant Relationship Specialty Start Date End Date Adithya Kenyon MD PCP - General Family Medicine 02/25/18 Drug Safety Assistant Relationship Specialty Start Date End Date Adithya Kenyon MD PCP - General Family Medicine 02/25/18 Drug Safety Assistant Relationship Specialty Start Date End Date Adithya Kenyon MD PCP - General Family Medicine 02/25/18 Drug Safety Assistant Relationship Specialty Start Date End Date Adithya Kenyon MD PCP - General Family Medicine 02/25/18 Drug Safety Assistant Relationship Specialty Start Date End Date Adithya Kenyon MD PCP - General Family Medicine 02/25/18 Drug Safety Assistant Relationship Specialty Start Date End Date Adithya Kenyon MD PCP - General Family Medicine 02/25/18 Drug Safety Assistant Relationship Specialty Start Date End Date Adithya Kenyon MD PCP - General Family Medicine 02/25/18 Team Status: Inactive Member Role Status Dates Adithya Kenyon MD Primary Care Provider Active Start: December 03, 2023 End: December 03, 2023 Denver Rasmussen MD Attending Provider Active Start: December 03, 2023 End: December 03, 2023 Drug Safety Assistant Relationship Specialty Start Date End Date Adithya Kenyon MD PCP - General Family Medicine 02/25/18 Drug Safety Assistant Relationship Specialty Start Date End Date Adithya Kenyon MD PCP - General Family Medicine 02/25/18 Continuous Active and Recently Administ ered Medications (unrecognized section and content) Medication Order 05/07/2022 05/08/2022 05/09/2022 NaCl 0.9% iv infusion 5-30 mL/hr, INTRAVENOUS, CONTINUOUS, Starting on Thu05/09/22 at 0730, Until 05/10/22 at 0304, Preprocedure 0730 (Due) PRN Medication Order 09/14/2023 09/15/2023 09/16/2023 lidocaine (PF) 20 mg/mL (2 %) injection (XYLOCAINE) (CANCELED) SUBCUTANEOUS, X (OR/PROCEDURE) PRN, Starting on Thu09/16/23 at 1042, Until Thu09/16/23 at 1122, Intraprocedure 1042 (Given - Provid er: Khushboo Mcintyre MD, ) Goals (unrecognized section and content) Goals may [...] BE BASED ON THE PRIMARY CLINICAL RECORDS. [employer] provides no warranty or guarantee of the accuracy or completeness of information in this document.
--- NOTE | 2023-12-13 04:45 | ED.SOB1 ---
HPI - SOB/Dyspnea General Chief Complaint: Shortness of Breath/Dyspnea Stated Complaint: sob Time Seen by Provider: 12/13/23 04:36 Source: patient Mode of arrival: walk-in Limitations: no limitations History of Present Illness HPI Narrative: history of 02 dependent COPD. presents complaining of increasing shortness of breath. No chest pain or nausea. No associated abdominal pain or fever Related Data Home Medications ?Medication ?Instructions ?Recorded ?Confirmed budesonide 0.5 mg/2 mL suspension 0.5 mg inhalation Q12H shortness 09/22/22 05/07/23 for nebulization of breath or wheezing ipratropium 0.5 mg-albuterol 3 mg 3 ml inhalation Q6H PRN shortness 09/22/22 05/07/23 (2.5 mg base)/3 mL nebulization of breath soln montelukast 10 mg tablet 10 mg PO .hs 09/22/22 05/07/23 tiotropium 2.5 mcg-olodaterol 2.5 2 puff inhalation Q24H 09/22/22 05/07/23 mcg/actuation mist for inhalation (Stiolto Respimat) albuterol sulfate 90 mcg/actuation 2 inh inhalation QID PRN SOB 02/07/23 05/07/23 aerosol inhaler (ProAir HFA) sodium chloride 3 % for 4 ml inhalation Q8H PRN SOB 02/07/23 05/07/23 nebulization (NebuSal) theophylline 400 mg 400 mg PO DAILY 02/07/23 05/07/23 tablet,extended release 24 hr fluticasone propionate 50 2 spray intranasal QD PRN allergy 05/07/23 05/07/23 mcg/actuation nasal symptoms spray,suspension Previous Rx's ?Medication ?Instructions ?Recorded ferrous sulfate 325 mg (65 mg 325 mg PO BID #60 tabs 05/09/23 iron) tablet levofloxacin 750 mg tablet 750 mg PO DAILY 14 days #14 tabs 05/09/23 prednisone 10 mg tablet 50 mg (5 x 10 mg) PO DAILY #47 tabs 05/09/23 hyoscyamine sulfate 0.125 mg 0.125 mg PO Q6H PRN abdominal pain 06/06/23 tablet (Levsin) #12 tabs ondansetron 4 mg disintegrating 4 mg PO Q6H PRN nausea and 06/06/23 tablet vomiting #12 tabs Allergies Allergy/AdvReac Type Severity Reaction Status Date / Time No Known Drug Allergies Allergy Verified 12/13/23 04:47 Review of Systems ROS Status of ROS 10 or more systems reviewed and unremarkable except as noted in history and below [facility] Medical History (Updated 12/13/23 @ 05:42 by Renard Pavon MD) Acute exacerbation of chronic obstructive pulmonary disease (COPD) ?J44.1 - Chronic obstructive pulmonary disease with (acute) exacerbation (ICD-10) Tachycardia ?R00.0 - Tachycardia, unspecified (ICD-10) Failure of outpatient treatment ?Z78.9 - Other specified health status (ICD-10) Tachypnea ?R06.82 - Tachypnea, not elsewhere classified (ICD-10) Asthma exacerbation in COPD ?J44.1 - Chronic obstructive pulmonary disease with (acute) exacerbation (ICD-10) ?J45.901 - Unspecified asthma with (acute) exacerbation (ICD-10) Community acquired pneumonia ?J18.9 - Pneumonia, unspecified organism (ICD-10) Acute infective exacerbation of chronic obstructive airway disease ?J44.1 - Chronic obstructive pulmonary disease with (acute) exacerbation (ICD-10) Acute bronchitis ?J20.9 - Acute bronchitis, unspecified (ICD-10) Acute and chronic respiratory failure with hypoxia ?J96.21 - Acute and chronic respiratory failure with hypoxia (ICD-10) Iron deficiency anemia ?D50.9 - Iron deficiency anemia, unspecified (ICD-10) Sinus tachycardia ?R00.0 - Tachycardia, unspecified (ICD-10) Acute exacerbation of chronic obstructive pulmonary disease ?J44.1 - Chronic obstructive pulmonary disease with (acute) exacerbation (ICD-10) Chronic obstructive pulmonary disease ?J44.9 - Chronic obstructive pulmonary disease, unspecified (ICD-10) Family History (Updated 09/22/22 @ 21:17 by Veronika Almeida) Other Family history of myocardial infarction Social History Within the past year, how often did you have a drink containing alcohol: never Score interpretation: A score less than 3 is consistent with normal alcohol consumption. Smoking status: Former smoker Non-prescribed substance use: denies use Previous occupational history: disabled Highest level of school completed/degree received: GED or equivalent Are you now , , , , never or living with a partner: In a typical week, how many times do you talk on the telephone with family, friends, or neighbors: 3 or more times per week How often do you get together with friends or relatives: 3 or more times per week How often do you attend christianity or jew services: 1-3 times per year Do you belong to any clubs or organizations such as christianity groups unions, fraternal or athletic groups, or school groups: no Total score: 2 Score interpretation: A score of greater than or equal to 2 indicates the lowest level of social isolation. Little interest or pleasure in doing things: not at all Feeling down, depressed, or hopeless: not at all Feel stressed/tense/nervous/anxious/difficulty sleeping: not at all Do you think of yourself as: straight/heterosexual Gender Identity: female Exam Constitutional Vital Signs, click to edit/add: Last Vital Signs Temp 98 F 12/13/23 04:37 Pulse 115 H 12/13/23 06:27 Resp 22 H 12/13/23 06:27 BP 120/69 12/13/23 06:27 Pulse Ox 94 L 12/13/23 06:27 O2 Del Method Nasal Cannula 12/13/23 05:06 O2 Flow Rate 2 12/13/23 06:27 Common normals: no apparent distress, average body habitus, oriented x3, no limitations and alert HENMT Common normals: normocephalic and head/scalp atraumatic Eye Common normals: EOMs intact bilaterally and conjunctivae normal Respiratory Other: dry fibrotic crackles-diffuse Cardio Common normals: regular rate, regular rhythm, S1 normal heart sound and S2 normal heart sound GI Common normals: Normal to inspection, nondistended, normoactive bowel sounds present, soft to palpation and non-tender Extremity Common normals: normal to inspection and full ROM Neuro Common normals: oriented x3, CN's II-XII intact bilaterally, moves all extremities and no focal motor deficits Psych Appearance: grossly normal Course Vital Signs Vital signs: Vital Signs Temperature 98 F 12/13/23 04:37 Pulse Rate 109 H 12/13/23 04:37 Respiratory Rate 20 12/13/23 04:37 Blood Pressure 129/76 12/13/23 04:37 Pulse Oximetry 96 12/13/23 04:37 Oxygen Delivery Method Nasal Cannula 12/13/23 04:37 Oxygen Delivery Flow Rate 2 12/13/23 04:37 Temperature 98 F 12/13/23 04:37 Pulse Rate 115 H 12/13/23 06:27 Respiratory Rate 22 H 12/13/23 06:27 Blood Pressure 120/69 12/13/23 06:27 Pulse Oximetry 94 L 12/13/23 06:27 Oxygen Delivery Method Nasal Cannula 12/13/23 05:06 Oxygen Delivery Flow Rate 2 12/13/23 06:27 MDM - SOB/Dyspnea MDM Narrative Medical decision making narrative: 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 presents with increasing shortness of breath and productive cough. Symptoms have improved some with solumedrol and duoneb. cxray report pending. cxray report without acute findings. Patient informed of the plan for obs admission and she is in agreement. Discussed with the hospitalist and patient accepted Lab Data Labs: Lab Results 12/13/23 12/13/23 Range/Units 04:48 05:01 WBC 10.2 (4.0-11.0) 10^3/uL RBC 4.68 (4.20-5.40) 10^6/uL Hgb 12.5 (12.0-16.0) g/dL Hct 40.6 (36.0-48.0) % MCV 86.8 (81.0-99.0) fL MCH 26.7 (26.7-34.0) pg MCHC 30.8 (29.9-35.2) g/dL RDW 13.2 (11.0-15.0) % Plt Count 242 (150-450) 10^3/uL MPV 9.2 L (9.5-13.5) fL Neut % (Auto) 81.1 H (43.0-75.0) % Lymph % (Auto) 8.8 L (20.5-60.0) % [place] % (Auto) 8.3 (1.7-12.0) % Eos % (Auto) 1.3 (0.9-7.0) % Baso % (Auto) 0.2 (0.2-2.0) % Neut # (Auto) 8.3 H (1.4-6.5) 10^3/uL Lymph # (Auto) 0.9 L (1.2-3.8) 10^3/uL [place] # (Auto) 0.9 H (0.3-0.8) 10^3/uL Eos # (Auto) 0.1 (0.0-0.7) 10^3/uL Baso # (Auto) 0.0 (0.0-0.1) 10^3/uL Abs Immat Gran (auto) 0.03 (0.00-0.03) 10^3/uL Imm/Tot Granulo (auto) 0.3 (0.0-0.5) % Sodium 139 (136-145) mmol/L Potassium 4.3 (3.5-5.1) mmol/L Chloride 98 (98-107) mmol/L Carbon Dioxide 39.4 H (21.0-32.0) mmol/L Anion Gap 5.9 BUN 9.0 (7.0-18.0) mg/dL Creatinine 0.40 L (0.55-1.02) mg/dL Est GFR ( Amer) >60 (>=60) Est GFR (Non-Af Amer) >60 (>=60) BUN/Creatinine Ratio 22.5 Glucose 93 (74-106) mg/dL Calcium 9.2 (8.5-10.1) mg/dL Troponin I High Sens 5.0 (4.0-51.3) pg/mL Discharge Plan Discharge Chief Complaint: Shortness of Breath/Dyspnea Clinical Impression: COPD exacerbation Patient Disposition: Admitted as Observation
--- NOTE | 2023-12-13 04:47 | XR_ITS ---
The [address] [address] Patient Name: PHOEBE STANLEY MRN: [id number] date: 1960 Sex: F Assigned Patient Location: ER Current Patient Location: ER Accession/Order Number: [id number] Exam Date: 12/13/2023 05:00 Report Date: 12/13/2023 05:45 At the request of: CAROL SCRUGGS Procedure: XR chest 1V EXAM: XR chest 1V HISTORY: short of breath COMPARISON: Chest radiographs dated 07/22/2023. Correlation is made with CT chest examination dated 08/13/2023. TECHNIQUE: One view of the chest was obtained. FINDINGS: The cardiac silhouette is stable in size. Aortic atherosclerotic disease is seen. There are advanced emphysematous changes in the lungs. There is pleural parenchymal scarring in the upper left lung. There is no significant pneumothorax or left pleural effusion. There is a stable suspected pleural parenchymal scarring at the right costophrenic angle. Surgical clips overlie the left supraclavicular region. XR/XR chest 1V IMPRESSION: 1. Advanced emphysematous changes with pleural-parenchymal scarring in the upper left lung. Electronically authenticated by: Garrick CEJA Date: 12/13/2023 05:45
[2023-12-13 04:53] LABS: Basophils Percent Auto 0.2 % (0.2-2.0); Eosinophils Absolute Auto 0.1 10^3/uL (0.0-0.7); Eosinophils Percent Auto 1.3 % (0.9-7.0); Hematocrit 40.6 % (36.0-48.0); Hemoglobin 12.5 g/dL (12.0-16.0); Immature Granulocytes Abs Auto 0.03 10^3/uL (0.00-0.03); Immature Granulocytes Pct Auto 0.3 % (0.0-0.5); Lymphocytes Absolute Auto 0.9 10^3/uL (1.2-3.8); Lymphocytes Percent Auto 8.8 % (20.5-60.0); Mean Corpuscular HGB Conc 30.8 g/dL (29.9-35.2); Mean Corpuscular Hemoglobin 26.7 pg (26.7-34.0); Mean Corpuscular Volume 86.8 fL (81.0-99.0); Mean Platelet Volume 9.2 fL (9.5-13.5); Monocytes Absolute Auto 0.9 10^3/uL (0.3-0.8); Monocytes Percent Auto 8.3 % (1.7-12.0); Neutrophils Absolute Auto 8.3 10^3/uL (1.4-6.5); Neutrophils Percent Auto 81.1 % (43.0-75.0); Platelet Count 242 10^3/uL (150-450); Red Blood Count 4.68 10^6/uL (4.20-5.40); Red Cell Distribution Width 13.2 % (11.0-15.0); White Blood Count 10.2 10^3/uL (4.0-11.0)
[2023-12-13] MEDS: IPRATROPIUM/ALBUTEROL SULFATE 3 ML AMPUL.NEB IH ×5 (05:10→22:52)
[2023-12-13] MEDS: 0.9 % SODIUM CHLORIDE 1,000 ML 999 ML IV (05:16)
[2023-12-13] MEDS: METHYLPREDNISOLONE SOD SUCC PF 125 MG/2 ML VIAL IVP ×4 (05:16→23:32)
[2023-12-13 05:29] LABS: Anion Gap 5.9; BUN Creatinine Ratio 22.5; Calcium 9.2 mg/dL (8.5-10.1); Carbon Dioxide 39.4 mmol/L (21.0-32.0); Chloride 98 mmol/L (98-107); Estimated GFR (African America >60 (>=60); Estimated GFR (Non-African Ame >60 (>=60); Glucose 93 mg/dL (74-106); Potassium 4.3 mmol/L (3.5-5.1); Sodium 139 mmol/L (136-145)
--- NOTE | 2023-12-13 05:53 | ECG_ITS ---
The 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
--- OUTSIDE RECORDS SUMMARY | 2023-12-13 08:10 | XMS_ITS | CCD ---
Author Organization [facility] [employer]ini[employer] Care Team Providers Care Route Driver Coin Machines Name Role Phone Adithya Kenyon Unavailable Unavailable JAYE HOUGH Unavailable Unavailable ADITHYA KENYON Unavailable Unavailable ABDDUGLAS ARIAS Unavailable Unavailable Adithya Kenyon MD Primary Care Provider [phone] Adithya Kenyon MD Primary Care Provider [phone] Adithya Kenyon MD Primary Care Provider [phone] JOSE CONDE Admitting [...] HOY ., DR HAJI Primary Care Unavailable [place], DR JULES Naranjo Consulting Unavailable HOY ., [...] Unavailable Adithya Kenyon MD Primary Care Provider [phone] Ally Warner Admitting Unavailable Hoy, Adithya M Primary Care Unavailable Cassandra Andersen Attending Unavailable ANA DRIVER Attending Unavailable ANA DRIVER Attending Unavailable CARLA MONTAGUE Attending Unavailable Adithya Kenyon MD Primary Care Provider [phone] TEO CRAFT Referring Unavailable HOY, ADITHYA M Primary Care Unavailable PRENDESABION Referring Unavailable HOY, ADITHYA M Primary Care Unavailable HOY, ADITHYA M Primary Care Unavailable BRIE KAUR Referring Unavailable LINDY, ABDI Referring Unavailable HOY, ADITHYA M Primary Care Unavailable HOY, ADITHYA M Primary Care Unavailable STOCK, KHUSHBOO E Admitting Unavailable STOCK, KHUSHBOO E Attending Unavailable HOY, ADITHYA M Primary Care [...] levoFLOXacin; Translations: [LEVOFLOXACIN] Drug Allergy 03-02-2018 Unknown [facility] Other [place] Repository (2 sources) levoFLOXacin Drug Allergy [facility] Repository Medications Current Medications Medication Drug Class(es) Dates Sig (Normalized) Sig (Original) [id number] 200 actuat albuterol 0.09 mg/actuat metered dose [...] mg by mouth daily at bedtime. nystatin 137136 unt/ml oral suspension (6 sources) Polyene Antifungal Start: take 627519 [IU] by mouth three times daily Nystatin Active 596381 UNIT PO Three times daily May 17, 2023 9:48am Nystatin 193233 units/mL 1 mL to each cheek Four [...] ordered (3 sources) oxygen as ordere 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 Author Type: Anesthesiologist Type: Anesthesia Postprocedure Evaluation Filed: 11/19/2023 07:55 Note Text: POST ANESTHESIA EVALUATION NOTE : 1960 Procedure Summary Date: 11/18/23 Room / Location: [address] Anesthesia Start: 1535 Anesthesia Stop: 174 [...] DATE: November 19, 2023 TIME: 7:55 AM [facility]: [id number] [facility] 11-19-2023 [facility] Telephone (HNQ) LIZETHCINTHIA ONTIVEROS ([id number]) 1960 F Date Time Provider Department 11/19/23 TEO CRAFT During your visit today, we recorded the following information about you: Ananya Acuna 11/19/2023 1:51 PM Signed Person Calling:Omaira Reason for Call: requesting a work excuse for her daughter Kendal Ruiz fir 11/17 AND 11/18. Pt Phone #: [phone] Pharmacy Name and # : Pt last [...] Status:Closed by ANANYA ACUNA on 11/19/23 Normal [facility] ANES PRE-OPon 11-18-2023 ANES PRE-OP HNO ID: [id number] Author: DORON FLORENTINO MD Service: ? Author [...] November 18, 2023 TIME: 3:43 PM CSN: [id number] Normal [facility] ECG COMPLETEon 11-18-2023 Atrial Rate 115 BPM [facility] Calculated P Thompson 94 degrees [facility] Calculated R Thompson 84 degrees [facility] Calculated T Thompson 88 degrees [facility] P-R Interval 158 ms [facility] QRS Duration 74 ms [facility] QT Interval 312 ms [facility] QTC Calculation (Bazett) 431 ms [facility] Ventricular Rate 115 BPM [facility] SINUS TACHYCARDIA RIGHT ATRIAL ENLARGEMENT MINIMAL VOLTAGE CRITERIA FOR LVH, MAY BE NORMAL VARIANT BORDERLINE ECG NO PREVIOUS ECGS AVAILABLE Confirmed by MD BLAND GREGORY () on 11/18/2023 7:35:32 AM [facility] NAME : CINTHIA GUERRERO PID : [id number] : 1960 Gender : Female Race : ORD : [id number] Procedure Date : Nov 17 2023 14:38:04 Edit Date : Nov 18 2023 07:35:34 Diagnosis: SINUS TACHYCARDIA RIGHT ATRIAL ENLARGEMENT MINIMAL VOLTAGE CRITERIA FOR LVH, MAY BE NORMAL VARIANT BORDERLINE ECG NO PREVIOUS ECGS AVAILABLE Confirmed by MD BLAND GREGORY () on 11/18/2023 7:35:32 AM Test Reason : [facility] Location : 10 : PAT/ Overread By : MD BLAND GREGORY Edited By : MD BLAND GREGORY Referred By : TEO CRAFT Acquired by : PERLA JUNIOR CPD [facility] OPERATIVE NOon 11-18-2023 OPERATIVE NO HNO ID: [id number] Author: TEO CRAFT MD Service: Otolaryngology Author Type: Physician Type: Operative Report Filed: 11/23/2023 12:14 Note Text: [facility] [place] [id number] or (002) [facility] C O N F I D E N T I A L I N F O R M A T I O N STANDARD [facility] DOCUMENT OPERATIVE REPORT Otolaryngology Head and Neck Surgery Name: CINTHIA Guerrero [facility] #: [id number] Date: 11/18/2023 Date of : 1960 Pre [...] Teo Craft MD Brandon Prendes, MD Normal [facility] SURGICAL PATHOLOGYon 024 CASE REPORT Normal [facility] Comment on above: Order Comment: Speci men Type: TISSUE SPECIMENOrdering Facility: [facility] Address: [address] [place] [address] Result Comment: Surg [facility] Pathology Report Case: [id number] Authorizing Provider: Teo Craft MD Collected: 11/18/2023 04:25 PM Ordering Location: Admitting Received: 11/18/2023 05:12 PM Pathologist: Stephane Elmore MD, PhD Specimens: A) - Lymph Node, Biopsy, Left posterior supraclavicular lymph node B) - Lymph Node, Biopsy, Left supraclavicular external jugular node Performed By: #### S ####[facility] LABCLIA [id number] [address] LABORATORYCLIA [id number] [address] CLINICAL HISTORY Normal [facility] Comment on above: Order Comment: Speci men Type: TISSUE SPECIMENOrdering Facility: [facility] Address: [address] [place] [address] Result Comment: Pre- op diagnosis: Non-small cell cancer of left lung (HCC) [C34.92] Lymphadenopathy [R59.1] Performed By: #### S ####[facility] LABCLIA [id number] [address] LABORATORYCLIA [id number] [address] DIAGNOSIS COMMENT Normal [facility] Comment on above: Order Comment: Speci deepthi Type: TISSUE SPECIMENOrdering Facility: [facility] Address: [address] [place] [address] Result Comment: The morphologic findings described below show benign lymph nodes with follicular hyperplasia. Granulomatous diseases not identified. GMS stains are negative for microorganisms. There is no evidence of a lymphoproliferative disorder, metastatic carcinoma or other malignancy. Laboratory Developed Test (LDT) Disclaimer: Performance characteristics of immunohistochemical, immunofluorescent and chromogenic in-situ hybridization tests have been determined by the performing laboratory within [facility]???s Adarsh Yang Pathology and Laboratory Medicine Department ([facility], [facility], [facility], [facility], [facility], or [facility]) in a manner consistent with CLIA requirements. One or more of these tests have not been cleared or approved by the FDA. [facility] is regulated under CLIA as qualified to perform high-complexity testing. These tests are used for clinical purposes. They should not be regarded as investigational or for research. Positive and negative controls stain appropriately. Performed By: #### S ####[facility] LABCLIA [id number] [address] LABORATORYCLIA [id number] [address] FINAL DIAGNOSIS Normal [facility] Comment on above: Order Comment: Speci men Type: TISSUE SPECIMENOrdering Facility: [facility] Address: [address] [place] [address] Result Comment: Lymp h nodes, left posterior supraclavicular and left supraclavicular external jugular, excisional biopsies (A-B): - Benign lymph nodes with follicular hyperplasia. - GMS stains negative for microorganisms. - No evidence of malignancy. - See comment. [facility] 11/27/2023 Performed By: #### S ####[facility] LABCLIA [id number] [address] LABORATORYCLIA [id number] [address] FINAL PERFORMING LAB Normal [facility] Comment on above: Order Comment: Speci men Type: TISSUE SPECIMENOrdering Facility: [facility] Address: [address] [place] [address] Result Comment: Diag nostic interpretation performed at [facility], [address] [place] [address] CLIA# [id number] Hall Cleaner: Axel Romano M.D. Performed By: #### S ####[facility] LABCLIA [id number] [address] [id number] [address] GROSS DESCRIPTION Normal [facility] Comment on above: Order Comment: Speci men Type: TISSUE SPECIMENOrdering Facility: [facility] Address: [address] [place] [address] Result Comment: A. L ymph Node, Biopsy [...] 2023 12:08 PM Gross examination performed at [facility], [address] [place] [address] Performed By: #### S ####[facility] [id number] [address] [id number] [address] MICROSCOPIC DESCRIPTION The histologic sections of [...] D1 stain shows no lymphoid staining. Normal [facility] Comment on above: Order Comment: Speci men Type: TISSUE SPECIMENOrdering Facility: [facility] Address: [address] [place] [address] Performed By: #### S ####[facility] LABCLIA [id number] [facility] CENTERSuy[facility] ALICEA[address] STATES [facility] LABORATORYCLIA [id number] [address] [place] Basic metabolic 2000 panelon 11-17-2023 Anion gap [Moles/Vol] 8 mmol/L 8 - 15 mmol/L [facility] Calcium [Mass/Vol] 9.7 mg/dL 8.5 - 10. 2 mg/dL [facility] Chloride [Moles/Vol] 95 mmol/L Low 98 - 10 7 mmol/L [facility] CO2 [Moles/Vol] 36 mmol/L High 22 - 30 mmol/L [facility] Creatinine [Mass/Vol] 0.37 mg/dL Low 0.58 - 0.96 mg/dL [facility] GFR/1.73 sq M.predicted among non-blacks MDRD (S/P/Bld) [Vol rate/Area] 114 mL/min/{1.73_m2} - PINF [facility] Comment on above: Estimated Glomerular Filtration Rate [...] 200 mg/dL High 74 - 99 mg/dL [facility] Comment on above: The [place] Diabete s Association (ADA) provides guidance for [...] Standards of Medical Care in Diabetes 2016, [place] Diabetes Association. Diabetes Care. 2016.39(Suppl 1). Interpretation and review of laboratory results Abnormal [facility] Potassium [Moles/Vol] 3.9 mmol/L 3.7 - 5.1 mmol/L [facility] Sodium [Moles/Vol] 139 mmol/L 136 - 144 mmol/L [facility] Urea nitrogen [Mass/Vol] 8 mg/dL 7 - 21 mg/dL [facility] Anion gap [Moles/Vol] 8 mmol/L Normal 8-15 [facility] Comment on above: Order Comment: Renuka lacey Type: BLOOD SPECIMEN [facility] Address: [address] [place] [address] Performed By: #### 2 4321-2 #### [facility] CLIA [id number] [address] [place] [address] [place] Calcium [Mass/Vol] 9.7 mg/dL Normal 8.5-10.2 [facility] Comment on above: Order Comment: Renuka lacey Type: BLOOD SPECIMEN [facility] Address: [address] [place] [address] Performed By: #### 2 4321-2 #### [facility] CLIA [id number] [address] [place] [address] [place] Chloride [Moles/Vol] 95 mmol/L Low 98-107 [facility] Comment on above: Order Comment: Renuka lacey Type: BLOOD SPECIMEN [facility] Address: [address] [place] [address] Performed By: #### 2 4321-2 #### [facility] CLIA [id number] [address] [place] [address] [place] CO2 [Moles/Vol] 36 mmol/L High 22-30 [facility] Comment on above: Order Comment: Shamikai men Type: BLOOD SPECIMEN [facility] Address: [address] [place] [address] Performed By: #### 2 4321-2 #### [facility] CLIA [id number] [address] [place] [address] [place] Creatinine [Mass/Vol] 0.37 mg/dL Low 0.58-0.96 [facility] Comment on above: Order Comment: Renuka lacey Type: BLOOD SPECIMEN [facility] Address: [address] [place] [address] Performed By: #### 2 4321-2 #### [facility] CLIA [id number] [address] [place] [address] [place] Creatinine and Glomerular filtration rate.predicted panel (S/P/Bld) 114 mL/min/1.73m??? Normal >=60 [facility] Comment on above: Order Comment: Renuka lacey Type: BLOOD SPECIMEN [facility] Address: [address] [place] [address] Result Comment: Angelique mated Glomerular Filtration Rate [...] GFR. Performed By: #### 2 4321-2 #### [facility] CLIA [id number] [address] [place] [address] [place] Glucose [Mass/Vol] 200 mg/dL High 74-99 [facility] Comment on above: Order Comment: Renuka lacey Type: BLOOD SPECIMEN [facility] Address: [address] [place] [address] Result Comment: The [place] Diabetes Association (ADA) provides guidance for cutoff [...] Standards of Medical Care in Diabetes 2016, [place] Diabetes Association. Diabetes Care. 2016.39(Suppl 1). Performed By: #### 2 4321-2 #### [facility] CLIA [id number] [address] STATES [facility] Potassium [Moles/Vol] 3.9 mmol/L Normal 3.7-5.1 [facility] Comment on above: Order Comment: Speci men Type: BLOOD SPECIMEN [facility] Address: [address] [place] [address] Performed By: #### 2 4321-2 #### [facility] CLIA [id number] [address] STATES OF [facility] Sodium [Moles/Vol] 139 mmol/L Normal 136-144 [facility] Comment on above: Order Comment: Speci men Type: BLOOD SPECIMEN [facility] Address: [address] [place] [address] Performed By: #### 2 4321-2 #### [facility] CLIA [id number] [address] STATES [facility] Urea nitrogen [Mass/Vol] 8 mg/dL Normal 7-21 [facility] Comment on above: Order Comment: Speci men Type: BLOOD SPECIMEN [facility] Address: [address] [place] [address] Performed By: #### 2 4321-2 #### [facility] CLIA [id number] [address] [place] CBC W Auto Differential pane l (Bld)on 11-17-2023 Basophils (Bld) [#/Vol] NINF [facility] Basophils/100 WBC (Bld) 0.2 % [facility] Differential cell count method Nom (Bld) Auto [facility] Eosinophils (Bld) [#/Vol] [facility] Eosinophils/100 WBC (Bld) 0.4 % [facility] Erythrocyte distribution width (RBC) [Ratio] 12.8 % 11.5 - 15.0 % [facility] Hematocrit (Bld) [Volume fraction] 40.3 % 36.0 - 46.0 % [facility] Hemoglobin (Bld) [Mass/Vol] 12.4 g/dL 11.5 - 15.5 g/dL [facility] Immature granulocytes (Bld) [#/Vol] NINF [facility] Immature granulocytes/100 WBC (Bld) 0.2 % [facility] Interpretation and review of laboratory results Abnormal [facility] Lymphocytes (Bld) [#/Vol] 0.31 10*3/uL Low [facility] Lymphocytes/100 WBC (Bld) 6.0 % [facility] MCH (RBC) [Entitic mass] 26.4 pg 26.0 - 34.0 pg [facility] MCHC (RBC) [Mass/Vol] 30.8 g/dL 30.5 - 36.0 g/dL [facility] MCV (RBC) [Entitic vol] 85.9 fL 80.0 - 100.0 fL [facility] Monocytes (Bld) [#/Vol] 0.06 10*3/uL [facility] Monocytes/100 WBC (Bld) 1.2 % [facility] Neutrophils (Bld) [#/Vol] 4.76 10*3/uL [facility] Neutrophils/100 WBC (Bld) 92.0 % [facility] Nucleated RBC (Bld) [#/Vol] [facility] Nucleated RBC/100 WBC (Bld) [Ratio] 0.0 % /100 WBC [facility] Platelet mean volume (Bld) [Entitic vol] 9.0 fL 9.0 - 12.7 fL [facility] Platelets (Bld) [#/Vol] 286 10*3/uL [facility] RBC (Bld) [#/Vol] 4.69 10*6/uL 3.90 - 5.2 0 m/uL [facility] WBC (Bld) [#/Vol] 5.17 10*3/uL [facility] Basophils (Bld) [#/Vol] 10*3/uL Normal <0.11 [facility] Comment on above: Order Comment: Speci men Type: BLOOD SPECIMEN [facility] Address: [address] [place] [address] Performed By: #### 5 7021-8 #### [facility] CLIA [id number] [address] [place] [id number] [place] [address] [place] Basophils/100 WBC (Bld) 0.2 % Normal [facility] Comment on above: Order Comment: Speci men Type: BLOOD SPECIMEN [facility] Address: [address] [place] [address] Performed By: #### 5 7021-8 #### [facility] CLIA [id number] [address] [place] Differential cell count method Nom (Bld) Auto Normal [facility] Comment on above: Order Comment: Speci men Type: BLOOD SPECIMEN [facility] Address: [address] [place] [address] Performed By: #### 5 7021-8 #### [facility] CLIA [id number] [address] [place] [address] [place] Eosinophils (Bld) [#/Vol] 10*3/uL Normal <0.46 [facility] Comment on above: Order Comment: Speci men Type: BLOOD SPECIMEN [facility] Address: [address] [place] [address] Performed By: #### 5 7021-8 #### [facility] CLIA [id number] [address] [place] [address] [place] Eosinophils/100 WBC (Bld) 0.4 % Normal [facility] Comment on above: Order Comment: Speci men Type: BLOOD SPECIMEN [facility] Address: [address] [place] [address] Performed By: #### 5 7021-8 #### [facility] CLIA [id number] [address] [place] Erythrocyte distribution width (RBC) [Ratio] 12.8 % Normal 11.5-15.0 [facility] Comment on above: Order Comment: Speci men Type: BLOOD SPECIMEN [facility] Address: [address] [place] [address] Performed By: #### 5 7021-8 #### [facility] CLIA [id number] [address] [place] Hematocrit (Bld) [Volume fraction] 40.3 % Normal 36.0-46.0 [facility] Comment on above: Order Comment: Speci men Type: BLOOD SPECIMEN [facility] Address: [address] [place] [address] Performed By: #### 5 7021-8 #### [facility] CLIA [id number] [address] [place] [address] [place] Hemoglobin (Bld) [Mass/Vol] 12.4 g/dL Normal 11.5-15.5 [facility] Comment on above: Order Comment: Speci men Type: BLOOD SPECIMEN [facility] Address: [address] [place] [address] Performed By: #### 5 7021-8 #### [facility] CLIA [id number] [address] [place] [address] [place] Immature granulocytes (Bld) [#/Vol] 10*3/uL Normal <0.10 [facility] Comment on above: Order Comment: Speci men Type: BLOOD SPECIMEN [facility] Address: [address] [place] [address] Performed By: #### 5 7021-8 #### [facility] CLIA [id number] [address] [place] [address] [place] Immature granulocytes/100 WBC (Bld) 0.2 % Normal [facility] Comment on above: Order Comment: Speci men Type: BLOOD SPECIMEN [facility] Address: [address] [place] [address] Performed By: #### 5 7021-8 #### [facility] CLIA [id number] [address] [place] [address] [place] Lymphocytes (Bld) [#/Vol] 0.31 10*3/uL Low 1.00-4.00 [facility] Comment on above: Order Comment: Speci men Type: BLOOD SPECIMEN [facility] Address: [address] [place] [address] Performed By: #### 5 7021-8 #### [facility] CLIA [id number] [address] [place] [address] [place] [facility] [place] Lymphocytes/100 WBC (Bld) 6.0 % Normal [facility] Comment on above: Order Comment: Speci men Type: BLOOD SPECIMEN [facility] Address: [address] [place] [address] Performed By: #### 5 7021-8 #### [facility] CLIA [id number] [address] MCH (RBC) [Entitic mass] 26.4 pg Normal 26.0-34.0 [facility] Comment on above: Order Comment: Speci men Type: BLOOD SPECIMEN [facility] Address: [address] [place] [address] Performed By: #### 5 7021-8 #### [facility] CLIA [id number] [address] OF [facility] MCHC (RBC) [Mass/Vol] 30.8 g/dL Normal 30.5-36.0 [facility] Comment on above: Order Comment: Speci men Type: BLOOD SPECIMEN [facility] Address: [address] [place] [address] Performed By: #### 5 7021-8 #### [facility] CLIA [id number] [address] MCV (RBC) [Entitic vol] 85.9 fL Normal 80.0-100.0 [facility] Comment on above: Order Comment: Speci men Type: BLOOD SPECIMEN [facility] Address: [address] [place] [address] Performed By: #### 5 7021-8 #### [facility] CLIA [id number] [address] Monocytes (Bld) [#/Vol] 0.06 10*3/uL Normal <0.87 [facility] Comment on above: Order Comment: Speci men Type: BLOOD SPECIMEN [facility] Address: [address] [place] [address] Performed By: #### 5 7021-8 #### [facility] CLIA [id number] [address] Monocytes/100 WBC (Bld) 1.2 % Normal [facility] Comment on above: Order Comment: Speci men Type: BLOOD SPECIMEN [facility] Address: [address] [place] [address] Performed By: #### 5 7021-8 #### [facility] CLIA [id number] [address] [place] Neutrophils (Bld) [#/Vol] 4.76 10*3/uL Normal 1.45-7.50 [facility] Comment on above: Order Comment: Speci men Type: BLOOD SPECIMEN [facility] Address: [address] [place] [address] Performed By: #### 5 7021-8 #### [facility] CLIA [id number] [address] STATES [facility] Neutrophils/100 WBC (Bld) 92.0 % Normal [facility] Comment on above: Order Comment: Speci men Type: BLOOD SPECIMEN [facility] Address: [address] [place] [address] Performed By: #### 5 7021-8 #### [facility] CLIA [id number] [address] Nucleated RBC (Bld) [#/Vol] 10*3/uL Normal <0.01 [facility] Comment on above: Order Comment: Speci men Type: BLOOD SPECIMEN Ordering Facility: [facility] Address: [address] [place] [address] Performed By: #### 5 7021-8 #### [facility] CLIA [id number] [address] Nucleated RBC/100 WBC (Bld) [Ratio] 0.0 /100 WBC Normal [facility] Comment on above: Order Comment: Speci men Type: BLOOD SPECIMEN Ordering Facility: [facility] Address: [address] [place] [address] Performed By: #### 5 7021-8 #### [facility] CLIA [id number] [address] Platelet mean volume (Bld) [Entitic vol] 9.0 fL Normal 9.0-12.7 [facility] Comment on above: Order Comment: Speci men Type: BLOOD SPECIMEN Ordering Facility: [facility] Address: [address] [id number] Performed By: #### 5 7021-8 #### [facility] CLIA [id number] [address] [place] Platelets (Bld) [#/Vol] 286 10*3/uL Normal 150-400 [facility] Comment on above: Order Comment: Speci men Type: BLOOD SPECIMEN Ordering Facility: [facility] Address: [address] [place] [address] Performed By: #### 5 7021-8 #### [facility] CLIA [id number] [address] [place] RBC (Bld) [#/Vol] 4.69 10*6/uL Normal 3.90-5.20 [facility] Comment on above: Order Comment: Speci men Type: BLOOD SPECIMEN Ordering Facility: [facility] Address: [address] [place] [address] Performed By: #### 5 7021-8 #### [facility] CLIA [id number] [address] [place] WBC (Bld) [#/Vol] 5.17 10*3/uL Normal 3.70-11.00 [facility] Comment on above: Order Comment: Speci men Type: BLOOD SPECIMEN Ordering Facility: [facility] Address: [address] [place] [address] Performed By: #### 5 7021-8 #### [facility] CLIA [id number] [address] [place] ECG COMPLETEon 11-17-2023 ECG COMPLETE Ventricular Rate : 1 15 BPM Atrial Rate : 115 BPM P-R Interval : 158 ms QRS Duration : 74 ms Q-T Interval : 312 ms QTC Calculation(Bazett) : 431 ms Calculated P Thompson : 94 degrees Calculated R Thompson : 84 degrees Calculated T Thompson : 88 degrees SINUS TACHYCARDIA RIGHT ATRIAL ENLARGEMENT MINIMAL VOLTAGE CRITERIA FOR LVH, MAY BE NORMAL VARIANT BORDERLINE ECG NO PREVIOUS ECGS AVAILABLE Confirmed by MD BLAND GREGORY () on 11/18/2023 7:35:32 AM NAME : CINTHIA GUERRERO PID : [id number] : 1960 Gender : Female Race : ORD : [id number] Procedure Date : Nov 17 2023 14:38:04 Edit Date : Nov 18 2023 07:35:34 Diagnosis: SINUS TACHYCARDIA RIGHT ATRIAL ENLARGEMENT MINIMAL VOLTAGE CRITERIA FOR LVH, MAY BE NORMAL VARIANT BORDERLINE ECG NO PREVIOUS ECGS AVAILABLE Confirmed by MD BLAND GREGORY () on 11/18/2023 7:35:32 AM Test Reason : [facility] Location : : [facility] Overread By : MD BLAND GREGORY Edited By : MD BLAND GREGORY Referred By : TEO CRAFT Acquired by : SANDI [facility] HISTORY PHYSICALon HISTORY PHYSICAL HNO ID: [id number] Author: BRIE KAUR PA-C Service: ? Author Type: Physician Scheduling Assistant Type: H&P Filed: 11/17/2023 15:34 Note Text: [...] via [place]. Follows with outside pulm at [facility], Dr. Valery DAVIS in October per pt. Diminished breath sounds bilaterally throughout, no wheezing. SpO2 95% on 2L O2. Pt reports that she started prednisone taper from her research hydrologist today, currently taking prednisone 40 mg. Pt reports she called research hydrologist's office because she felt like her breathing [...] large neck Non-male patient STOP-Bang Score: 1 [id number] Score: Age: <65 Sex: female CHF history: No Hypertension history: No Stroke/TIA/thromboembo lism history: No Vascular disease history: No Diabetes history: No [id number] Score: 1 ANESTHESIA FINDINGS: Intubation History: No [...] Initiated: Orders placed by surgeon/surgical service in [facility]. Orders Placed This Encounter Complete Blood Count [...] currently 12/16/23 i (more content not included)... [facility] 11-16-2023 [facility] Telephone (RADTSA) CINTHIA GUERRERO ([id number]) 1960 F Date Time Provider Department 11/16/23 [...] lung (HCC) [C34.90] Order(s):NM PET/CT SKULL-THIGH SUBSEQUENT [[id number]] Order #: [id number] FUTURE CT CHEST W IVCON [[id number]] Order #: [id number] FUTURE [] iv contrast (will be provided [...] Encounter Status:Closed by SILVIA JHA on 12/09/23 [facility] CNАлександр 10-27-2023 CNOV Office Visit (OTOLMN ) CINTHIA GUERRERO ([id number]) 1960 F Date Time Provider Department 10/27/23 [...] a referral initiated?N/A Patient is a non-smoker Toe Craft MD 12/07/2023 12:32 AM Signed Nash [...] IX, X: (more content not included)... Normal [facility] US NECK (POC) HNI USE ONLYon 10-27-2023 [facility] Radiology Study observation (narrative) [facility] CNPNon 09-21-2023 CNPN Telephone (NCCAP) CINTHIA GUERRERO ([id number]) 1960 F Date Time Provider Department 09/21/23 ABDI [place] During your visit today, we recorded the following information about you: Rodney Rinaldi 09/21/2023 7:17 AM Signed Abdi Israel MD Stock, Khushboo Linda MD, MD Cc: Anita Pressley LPN; Silvia Jha, LUCIE; Rodney Rinaldi Ny Dr. Mcintyre - I appreciate the update [...] Fully Assessed Reason for Visit: Appointment Confirmation [3504] Primary Visit Diagnosis:Non-small cell cancer of left lung (HCC) [C34.92] Other Visit Diagnosis: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) [C77.0] Order(s):BIOPSY/REMOVA L, LYMPH NODE(S) [60904XTP] Order #: [id number] CONSULT TO ENT [9008] Order #: [id number]: 1 FUTURE Prescriptions as of 09/30/2023 - [...] Encounter Status:Closed by RODNEY RINALDI on 09/30/23 [facility] BRIEF OP NOTon 09-16-2023 BRIEF OP NOT HNO ID: [id number] Author: KHUSHBOO MCINTYRE MD Service: Radiology Author Type: Physician Type: Brief Op Note Filed: 09/16/2023 11:09 Note Text: Summary: Left cervical lymph node biopsy BRIEF OPERATIVE / PROCEDURE NOTE LOG ID: [id number] SURGERY/PROCEDURE DATE: 09/16/2023 INCISION/PROCEDURE START TIME: 10:42 AM INCISION CLOSE/PROCEDURE END TIME: 11:02 AM SURGEON(S)/PROCEDURALI ST(S) AND RN INVASIVE(S): Surgeon(s) and Role: * Khushboo Mcintyre MD, [...] DATE: September 16, 2023 TIME: 11:06 AM [facility] NURSING PROGon 09-16-2023 NURSING PROG HNO ID: [id number] Author: YAKELIN REILLY RN Service: ? Author Type: Registered Nurse Type: Nursing Progress Note Filed: 09/17/2023 08:20 Note Text: Completed post procedure phone call. Omaira is feeling well and has returned to her baseline diet and activity. Omaira denies questions or concerns related to her biopsy appointment on 09/16/23 and had no surgical site concerns. Normal [facility] PT EDon 09-16-2023 PT ED HNO ID: [id number] Author: RASHID HOWELL RN Service: ? Author [...] RN In Department: HOSP MAIN FB36 Normal [facility] SURGICAL PATHOLOGYon 024 CASE REPORT Normal [facility] Comment on above: Order Comment: Speci men Type: TISSUE SPECIMENOrdering Facility: [facility] Address: [address] [place] [address] Result Comment: Surg ical Pathology Report Case: [id number] Authorizing Provider: Khushboo Mcintyre MD, MD Collected: 09/16/2023 10:48 AM Ordering Location: [place] [address] Received: 09/16/2023 04:42 PM Pathologist: Tucker Mulligan V, MD Specimen: Lymph Node, Biopsy, left level 5 Performed By: #### S ####[facility] LABCLIA [id number] [address] [place] CLINICAL HISTORY history of lung ca Normal [facility] Comment on above: Order Comment: Speci men Type: TISSUE SPECIMENOrdering Facility: [facility] Address: [address] [place] [address] Performed By: #### S ####[facility] LABCLIA [id number] [address] OF [facility] DIAGNOSIS COMMENT Normal [facility] Comment on above: Order Comment: Speci men Type: TISSUE SPECIMENOrdering Facility: [facility] Address: [address] [place] [address] Result Comment: Immu nohistochemical stains were performed [...] been determined by the performing laboratory within [facility]???s [facility] Pathology and Laboratory Medicine Department ([facility], [facility], [facility], [facility], [facility], or [facility]) in a manner consistent with CLIA requirements. One or more of these tests have not been cleared or approved by the FDA. [facility] is regulated under CLIA as qualified to perform high-complexity testing. These tests are used for clinical purposes. They should not be regarded as investigational or for research. Positive and negative controls stain appropriately. Performed By: #### S ####[facility]CLIA [id number] [address] [place] FINAL DIAGNOSIS Normal [facility] Comment on above: Order Comment: Speci men Type: TISSUE SPECIMENOrdering Facility: [facility] Address: [address] [place] [address] Result Comment: Lymp h node, left level 5, biopsy: - Fragments of lymphoid tissue; negative for neoplasm (see comment). [place]/ 09/17/2023 Performed By: #### S ####[facility] LABCLIA [id number] [address] OF [facility] FINAL PERFORMING LAB Normal [facility] Comment on above: Order Comment: Speci men Type: TISSUE SPECIMENOrdering Facility: [facility] Address: [address] [place] [address] Result Comment: Diag nostic interpretation performed at [facility], [address] [place] [address] CLIA# [id number] Hall Cleaner: Axel Romano M.D. Performed By: #### S ####[facility] LABIA [id number] [address] [place] GROSS DESCRIPTION Normal [facility] Comment on above: Order Comment: Speci men Type: TISSUE SPECIMENOrdering Facility: [facility] Address: [address] [place] [address] Result Comment: A. L ymph Node, Biopsy Received in formalin are multiple segments of cylindrical tissue 1.3 x 0.2 x 0.1 cm, carcamo and of a soft and friable consistency. Totally submitted in one cassette. Gross examination performed at [address] September 16, 2023 7:23 PM Performed By: #### S ####[facility] LABCLIA [id number] [id number], [place] [address] [place] US BIOPSY CERVICAL LYMPH NOD Archie 09-16-2023 US BIOPSY CERVICAL LYMPH NODE * * *Final Report* * * DATE OF EXAM: Sep 16 2023 2:45PM [facility] 20[facility] - US BIOPSY CERVICAL LYMPH NODE [...] lung cancer. STAFF RADIOLOGIST: Dr. Lopez Mcintyre RN INVASIVE(S): None CONSENT: Informed consent was obtained for this procedure. Details of informed consent can be found in [facility] under the consent tab. TIME OUT: A [...] performed by the: attending radiologist, without an distribution center assistant. The attending radiologist performed the following [...] IMPRESSION: ULTRASOUND GUIDED BIOPSY DESCRIBED v 05/25/18 [employer] Sticker: PSCB Transcribe Date/Time: Sep 16 2023 4:33P Dictated by : KHUSHBOO MCINTYRE MD This examination was interpreted and the report reviewed and electronically signed by: KHUSHBOO MCINTYRE MD on Sep 20 2023 4:11PM EST [id number] Normal [facility] CBC panel Auto (Bld)on 09-13 Erythrocyte distribution width (RBC) [Ratio] 13.2 % Normal 11.5-15.0 [facility] Comment on above: Order Comment: Speci men Type: BLOOD SPECIMENOrdering Facility: [facility] Address: [address] [place] [address] Performed By: #### 5 8410-2 ####[facility] [id number] [place] [address] Hematocrit (Bld) [Volume fraction] 38.5 % Normal 36.0-46.0 [facility] Comment on above: Order Comment: Speci men Type: BLOOD SPECIMENOrdering Facility: [facility] Address: [address] [place] [address] Performed By: #### 5 8410-2 ####[facility] [id number] [place] [address] Hemoglobin (Bld) [Mass/Vol] 11.8 g/dL Normal 11.5-15.5 [facility] Comment on above: Order Comment: Speci men Type: BLOOD SPECIMENOrdering Facility: [facility] Address: [address] [place] [address] Performed By: #### 5 8410-2 ####[facility] [id number] [place] [address] MCH (RBC) [Entitic mass] 27.2 pg Normal 26.0-34.0 [facility] Comment on above: Order Comment: Speci men Type: BLOOD SPECIMENOrdering Facility: [facility] Address: [address] [place] [address] Performed By: #### 5 8410-2 ####[facility] [id number] [place] [address] MCHC (RBC) [Mass/Vol] 30.6 g/dL Normal 30.5-36.0 [facility] Comment on above: Order Comment: Speci men Type: BLOOD SPECIMENOrdering Facility: [facility] Address: [address] [place] [address] Performed By: #### 5 8410-2 ####[facility] [id number] [place] [address] MCV (RBC) [Entitic vol] 88.7 fL Normal 80.0-100.0 [facility] Comment on above: Order Comment: Speci men Type: BLOOD SPECIMENOrdering Facility: [facility] Address: [address] [place] [address] Performed By: #### 5 8410-2 ####[facility] [id number] [place] [address] Nucleated RBC (Bld) [#/Vol] 10*3/uL Normal <0.01 [facility] Comment on above: Order Comment: Speci men Type: BLOOD SPECIMENOrdering Facility: [facility] Address: [address] [place] [address] Performed By: #### 5 8410-2 ####[facility] [id number] [place] [address] Platelet mean volume (Bld) [Entitic vol] 8.9 fL Low 9.0-12.7 [facility] Comment on above: Order Comment: Speci men Type: BLOOD SPECIMENOrdering Facility: [facility] Address: [address] [place] [address] Performed By: #### 5 8410-2 ####[facility] [id number] [place] [address] Platelets (Bld) [#/Vol] 288 10*3/uL Normal 150-400 [facility] Comment on above: Order Comment: Speci men Type: BLOOD SPECIMENOrdering Facility: [facility] Address: [address] [place], [place] [address] Performed By: #### 5 8410-2 ####[facility] [id number] [place] [address] RBC (Bld) [#/Vol] 4.34 10*6/uL Normal 3.90-5.20 [facility] Comment on above: Order Comment: Speci men Type: BLOOD SPECIMENOrdering Facility: [facility] Address: [address] [place], [place] [address] Performed By: #### 5 8410-2 ####[facility] [id number] [place] [address] WBC (Bld) [#/Vol] 7.28 10*3/uL Normal 3.70-11.00 [facility] Comment on above: Order Comment: Speci men Type: BLOOD SPECIMENOrdering Facility: [facility] Address: [address] [place] [address] Performed By: #### 5 8410-2 ####[facility] [id number] [place] [address] NURSING PROGon 09-14-2023 NURSING PROG HNO ID: [id number] Author: YAKELIN ONOFRE LPN Service: ? Author Type: LICENSED NURSE Type: Nursing Progress Note Filed: 09/14/2023 10:55 Note Text: Pre- e instructions: Address: [address] [place] [address] Contacted patient and confirmed appt. for biopsy scheduled on 09/16/23, at [facility]. Diet: Procedure to be done with local anesthetic, you may eat, drink and take medications as prescribed the day of this procedure. Medications: IF ok with your Prescribing Provider: RADIOLOGY RECOMMENDS THESE MEDICATION RESTRICTIONS : None Labs: Lab work needs to be drawn by 09/15/23 at any [facility]. Arrival: Please bring your Photo ID and Insurance Card. A general consent may need to be signed. Arrival at 8:30am to desk QB-1 ([facility]) and check in for your procedure. Supervisor Wet End/Transportation: Supervisor Wet End not necessary Written instructions provided to patient via Kijubi If you have any questions please call [phone] [facility]IRRFV[facility] LIZETHCINTHIA Capone ([id number]) 1960 F Date Time Provider Department 09/08/23 ABDI ISRAEL IRRFV During your visit today, we recorded the following information about you: Chloe Nicole 09/08/2023 10:45 AM Signed RADIOLOGY CALL CENTER INTAKE DATE: 09/08/2023 TIME: 10:44am REQUESTING STAFF: Abdi Israel MD PHONE/PAGER: [phone] SPECIFICS OF THE REQUEST:Cervical lymph node bx SPECIAL REQUESTS: TISSUE SAMPLE, LABWORK: N/A IS THIS REQUEST PART OF A RESEARCH PROTOCOL: No MEDICAL DIAGNOSIS: Malignant neoplasm of unspecified part of unspecified bronchus or lung (HCC) [C34.90] TYPE AND DATE OF THE EXAM THAT IS THE BASIS OF THE REQUEST: PET 09/01/2023 IMAGING: [facility] Note to all persons requesting biopsies: All biopsy requests will be scheduled as quickly as possible, based on the clinical urgency, availability of appointment times, the need to hold anti-thrombolytic therapy (aspirin, blood thinners) and the patient?s schedule, including the need for an available route driver coin machines. If a percutaneous biopsy or drainage is [...] this procedure: intermediate-high risk. Reference from [facility] Privacy Compliance Manager: [email or web address]://[facility].[email or web address] [email or web address] .com/dotNet/documents/ ?[email or web address] STAFF SIGNATURE: Osito Galicia MD DATE: September [...] PEDIATRIC ASTHMA Inhale (more content not included)... [facility] CNPN Telephone (NCCAP) CINTHIA GUERRERO ([id number]) 1960 F Date Time Provider Department 09/08/23 ABDI ISRAEL During your visit today, we recorded the following information about you: oRdney Rinaldi 09/08/2023 7:24 AM Signed Abdi Israel MD Graves, Ariana, LPN Cc: Silvia Jha, RN; Rodney Rinaldi Please set Ms. Guerrero up for an US guided biopsy of one of the lymph nodes in the neck seen on PET CT at either [facility] or [facility]. Thanks! Abdi Nicolas MD 09/08/2023 9:51 AM [...] Encounter Status:Closed by RODNEY RINALDI on 09/14/23 [facility] CONSULT PROGon 09-01-2023 CONSULT PROG HNO ID: [id number] Author: STACIA IRVING RN Service: ? Author [...] September 01, 2023 TIME: 12:54 PM Normal [facility] PET/CT SKULL-THIGH SUBQon 09-01-2023 NM PET/CT SKULL-THIGH [...] * Radiopharmaceutical Dose: 6.6 mCi * Radiopharmaceutical: V23-Znrfbrifaqelsrardu (FDG) COMPARISON: PET/CT 03/07/2022 CORRELATION: CT 08/13/23 RESULT: REFERENCES: SUV reference values: * Blood pool (descending aorta) activity: SUVmax 1.8 * Background liver activity: SUVmax 2.2; SUVmean 1.6 Fitness Center Attendant (topogram) images: No additional findings Notes and [...] any questions regarding this interpretation, please call [phone]. If you are unable to reach us at the number above, please feel free to contact [facility] eRadiology at [phone]. [id number] Normal [facility] CNPNon 08-14-2023 CNPN Telephone (RADTSA) LIZETHCINTHIA ONTIVEROS ([id number]) 1960 F Date Time Provider Department 08/14/23 ABDI [place]RA[place] During your visit today, we recorded the following information about you: Silvia Jha RN 08/14/2023 9:34 AM Signed Pt called in to let us know she had a CT at [facility] ordered per Dr Kenyon yesterday. He called her today to let her know that there was something concerning and he wanted her to contact our office. CT report printed from [facility] and images requested. Dr Israel- please advise [...] lung (HCC) [C34.90] Order(s):NM PET/CT SKULL-THIGH SUBSEQUENT [[id number]] Order #: [id number] FUTURE Prescriptions as of 08/18/2023 - iv [...] [C34.9*04/07/2018 Encounter Status:Closed by SILVIA JHA on 08/18/23 [facility] CNOVon 05-25-2023 CNOV Office Visit (RADTSA ) CINTHIA GUERRERO ([id number]) 1960 F Date Time Provider Department 05/25/23 [...] COPD, who is diagnosed with Stage IA3, [id number], non-small cell lung cancer arising from a [...] remains on supplemental oxygen at 2 L/min vvpswq-jwl-kalaf and continues on Pulmicort and albuterol rescue inhaler. He denies cough or hemoptysis or chest pain or difficulty swallowing today. She does note fatigue with stable appetite and hydration. 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 She otherwise denies any recent fevers, chills, [...] COPD, who is diagnosed with Stage IA3, [id number], non-small cell lung cancer arising from a [...] in the process of transitioning care between research hydrologist. She had repeat CT imaging of the [...] which included preparing to see the patient, vgnx-pq-bipm patient care, and counseling and educating the patient/family/careg (more content not included)... Normal [facility] CNPNon 05-20-2023 CNPN Telephone (RADTSA) CINTHIA GUERRERO ([id number]) 1960 F Date Time Provider Department 05/20/23 ABDI ISRA[place] During your visit today, we recorded the following information about you: Silvia Jha, LUCIE 05/20/2023 9:55 AM Signed Pt called in and was admitted to [facility] last week. They did CT Chest. She has been waiting on insurance approval for a chest CT and will not need one now. She would like follow up arranged. Reports printed from [facility] and images requested. PSS- please call pt [...] Status:Closed by SILVIA JHA on 05/20/23 Normal [facility] Complete Blood Count Auto Di ffon 05-15-2023 Basophils (Bld) [#/Vol] 0.0 10*3/uL Normal 0.0-0.2 [facility] Comment on above: Result Comment: PERF ORMED BY: [facility] [address] [address] PATHOLOGIST MACHINE REPAIRER JASMEET LIN M.D. Performed By: #### C MP, CBC #### [facility] [address] [place] [address] [place] Basophils/100 WBC (Bld) 0.3 % Normal . [facility] Comment on above: Performed By: #### C MP, CBC #### [facility] [address] [place] [address] [place] Eosinophils (Bld) [#/Vol] 0.0 10*3/uL Normal 0.0-0.45 [facility] Comment on above: Performed By: #### C MP, CBC #### [facility] [address] [place] [address] [place] Eosinophils/100 WBC (Bld) 0.0 % Normal . [facility] Comment on above: Performed By: #### C MP, CBC #### [address] Erythrocyte distribution width (RBC) [Ratio] 13.5 % Normal 11.9-15.3 [facility] Comment on above: Performed By: #### C MP, CBC #### [place] [address] [place] Hematocrit (Bld) [Volume fraction] 42.0 % Normal 34.0-46.4 [facility] Comment on above: Performed By: #### C MP, CBC #### [place] [address] [place] Hemoglobin (Bld) [Mass/Vol] 13.9 g/dL Normal 11.8-15.4 [facility] Comment on above: Performed By: #### C MP, CBC #### [place] [address] [place] Lymphocytes (Bld) [#/Vol] 0.6 10*3/uL Low 1.00-4.8 [facility] Comment on above: Performed By: #### C MP, CBC #### [place] [address] [place] Lymphocytes/100 WBC (Bld) 8.4 % Normal . [facility] Comment on above: Performed By: #### C MP, CBC #### [facility] [address] MCH (RBC) [Entitic mass] 28.0 pg Normal 24.7-34.3 [facility] Comment on above: Performed By: #### C MP, CBC #### [address] MCV (RBC) [Entitic vol] 84.8 fL Normal 80-100 [facility] Comment on above: Performed By: #### C MP, CBC #### [address] Mean Corpuscular HGB Conc 33.0 g/dL Normal 32.0-35.0 [facility] Comment on above: Performed By: #### C MP, CBC #### [address] Monocytes (Bld) [#/Vol] 0.4 10*3/uL Normal 0.0-0.8 [facility] Comment on above: Performed By: #### C MP, CBC #### [address] Monocytes/100 WBC (Bld) 4.9 % Normal . [facility] Comment on above: Performed By: #### C MP, CBC #### [address] Neutrophils (Bld) [#/Vol] 6.6 10*3/uL Normal 1.8-7.7 [facility] Comment on above: Performed By: #### C MP, CBC #### [address] Neutrophils/100 WBC (Bld) 86.4 % Normal . [facility] Comment on above: Performed By: #### C MP, CBC #### [address] NRBC% 0.0 /100{WBC} Normal 0-0.5 [facility] Comment on above: Performed By: #### C MP, CBC #### [address] [place] [address] [place] Platelet mean volume (Bld) [Entitic vol] 7.3 fL Normal 6.3-10.7 [facility] Comment on above: Performed By: #### C MP, CBC #### [facility] [address] Platelets (Bld) [#/Vol] 378 10*3/uL Normal 150-450 [facility] Comment on above: Performed By: #### C MP, CBC #### [facility] [address] RBC (Bld) [#/Vol] 4.95 10*6/uL Normal 3.60-5.00 [facility] Comment on above: Performed By: #### C MP, CBC #### [address] WBC (Bld) [#/Vol] 7.6 10*3/uL Normal 3.8-11.6 [facility] Comment on above: Performed By: #### C MP, CBC #### [address] Comprehensive Metabolic Pane shelby 05-15-2023 Albumin [Mass/Vol] 4.0 g/dL Normal 3.5-5.7 [facility] Comment on above: Performed By: #### C MP, CBC ####[facility] [place], [place] [address] [facility] Albumin/Globulin [Mass ratio] 1.3 {ratio} Normal [facility] Comment on above: Performed By: #### C MP, CBC ####[facility] [place] [address] [facility] ALP [Catalytic activity/Vol] 68 U/L Normal 34-104 [facility] Comment on above: Performed By: #### C MP, CBC ####[facility] [place] [id number] [facility] ALT [Catalytic activity/Vol] 13 U/L Normal 7-52 [facility] Comment on above: Performed By: #### C MP, CBC ####[facility] [address] [place] [address] [facility] Anion gap [Moles/Vol] 6.9 mmol/L Normal 6.0-15.0 [facility] Comment on above: Performed By: #### C MP, CBC ####[facility] [place] [address] [facility] AST [Catalytic activity/Vol] 16 U/L Normal 13-39 [facility] Comment on above: Performed By: #### C MP, CBC ####[address] [place] [address] [facility] Bilirubin [Mass/Vol] 0.4 mg/dL Normal 0.3-1.0 [facility] Comment on above: Performed By: #### C MP, CBC ####[address] [place] [address] [facility] Calcium [Mass/Vol] 9.7 mg/dL Normal 8.6-10.3 [facility] Comment on above: Performed By: #### C MP, CBC ####[address] [place] [address] [facility] Chloride [Moles/Vol] 90 mmol/L Low 98-107 [facility] Comment on above: Performed By: #### C MP, CBC ####[address] [place] [address] [facility] CO2 [Moles/Vol] 44.4 mmol/L High 21.0-31.0 [facility] Comment on above: Performed By: #### C MP, CBC ####[address] [place] [address] [facility] Creatinine [Mass/Vol] 0.48 mg/dL Low 0.60-1.20 [facility] Comment on above: Performed By: #### C MP, CBC ####[address] [place] [address] [facility] Creatinine Clr Calc Pharmacy 76.17 Normal [facility] Comment on above: Result Comment: PERF ORMED BY: [facility] [address] [place] [id number] PATHOLOGIST MACHINE REPAIRER JASMEET LIN M.D. Performed By: #### C MP, CBC ####[address] [place] [address] [place] GFR/1.73 sq M.predicted MDRD (S/P/Bld) [Vol rate/Area] mL/min/{1.73_m2} [facility] Comment on above: Performed By: #### C MP, CBC ####[address] [facility] Globulin (S) [Mass/Vol] 3.1 g/dL [facility] Comment on above: Performed By: #### C MP, CBC ####[address] [place] [address] [facility] Glucose [Mass/Vol] 148 mg/dL High 70-100 [facility] Comment on above: Result Comment: [facility] Glucose Reference Range is dependent on time and content of last meal. Glucose of more than 200 mg/dL in a nonstressed, ambulatory subject supports the diagnosis of Diabetes Mellitus. ADA recommended reference range Performed By: #### C MP, CBC ####[address] [facility] Potassium [Moles/Vol] 4.3 mmol/L Normal 3.5-5.1 [facility] Comment on above: Performed By: #### C MP, CBC ####[address] [facility] Protein [Mass/Vol] 7.1 g/dL Normal 6.4-8.9 [facility] Comment on above: Performed By: #### C MP, CBC ####[address] [facility] Sodium [Moles/Vol] 137 mmol/L Normal 136-145 [facility] Comment on above: Performed By: #### C MP, CBC ####[address] [facility] Urea nitrogen [Mass/Vol] 13 mg/dL Normal 7-25 [facility] Comment on above: Performed By: #### C MP, CBC ####[facility] [address] [place] [id number] [facility] CT angio chest PE protocolon 05-14-2023 CT angio chest PE protocol [facility] [place] [address] [place] [id number] Scan Report Signed Patient: Cinthia Guerrero MR#: [id number] 881 : 1960 Acct:[id number] Age/Sex: 62 / F ADM Date: 05/14/23 Loc: Room: [address] [place] [address] Type: ADM IN Attending Dr: Cassandra Andersen [...] Wong Byrd M.D.05/14/2023 8:07 AM Dictation Location: [place] [address] Transcribed By: [facility] 05/14/23806 Dictated By: Wong Byrd DO 05/14/23801 Signed By: 05/14/23806 Normal [facility] B-Type Natriuretic Peptideon 05-13-2023 Natriuretic peptide B (Bld) [Mass/Vol] 25.0 pg/mL Normal 5-100 [facility] Comment on above: Result Comment: PERF ORMED BY: [facility] [address] [place] [address] PATHOLOGIST MACHINE REPAIRER JASMEET LIN M.D. Performed By: #### B METAL BONDING WORKER #### [address] COVID-19 / Flu A/B / RSV [...] or Cepheid Disclaimer revoked sooner. PERFORMED BY: [address] [place] [id number] PATHOLOGIST MACHINE REPAIRER JASMEET LIN M.D. Normal [facility] Comment on above: Performed By: #### C OVID19 FLU RSV, CEPHEID NEG ####[address] [facility] Cepheid COVID PCR Negativeon 05-13-2023 SARS-CoV-2 (COVID-19) RNA KRUNAL+probe Ql (Unsp spec) Negative Normal Negative [facility] Comment on above: Result Comment: This is a duplicate Cepheid Xpert Xpress CoV-2/Flu/RSV Plus RNA by RT-PCR result to be used for statistical tracking purpose only. PERFORMED BY: [address] [place] [id number] PATHOLOGIST MACHINE REPAIRER JASMEET LIN M.D. Performed By: #### C OVID19 FLU RSV, CEPHEID NEG ####[address] [facility] Complete Blood Count Auto Di ffon 05-13-2023 Basophils (Bld) [#/Vol] 0.0 10*3/uL Normal 0.0-0.2 [facility] Comment on above: Result Comment: PERF ORMED BY: [address] [place] [id number] PATHOLOGIST MACHINE REPAIRER JASMEET LIN M.D. Performed By: #### H S TROP, TSH3 wRFLX, CMP, CBC #### [address] Basophils/100 WBC (Bld) 0.4 % Normal . [facility] Comment on above: Performed By: #### H S TROP, TSH3 wRFLX, CMP, CBC #### [address] Eosinophils (Bld) [#/Vol] 0.0 10*3/uL Normal 0.0-0.45 [facility] Comment on above: Performed By: #### H S TROP, TSH3 wRFLX, CMP, CBC #### [address] Eosinophils/100 WBC (Bld) 0.1 % Normal . [facility] Comment on above: Performed By: #### H S TROP, TSH3 wRFLX, CMP, CBC #### [address] Erythrocyte distribution width (RBC) [Ratio] 13.5 % Normal 11.9-15.3 [facility] Comment on above: Performed By: #### H S TROP, TSH3 wRFLX, CMP, CBC #### [address] Hematocrit (Bld) [Volume fraction] 44.7 % Normal 34.0-46.4 [facility] Comment on above: Performed By: #### H S TROP, TSH3 wRFLX, CMP, CBC #### [address] Hemoglobin (Bld) [Mass/Vol] 14.9 g/dL Normal 11.8-15.4 [facility] Comment on above: Performed By: #### H S TROP, TSH3 wRFLX, CMP, CBC #### [address] Lymphocytes (Bld) [#/Vol] 1.4 10*3/uL Normal 1.00-4.8 [facility] Comment on above: Performed By: #### H S TROP, TSH3 wRFLX, CMP, CBC #### [address] Lymphocytes/100 WBC (Bld) 14.2 % Normal . [facility] Comment on above: Performed By: #### H S TROP, TSH3 wRFLX, CMP, CBC #### [address] MCH (RBC) [Entitic mass] 28.4 pg Normal 24.7-34.3 [facility] Comment on above: Performed By: #### H S TROP, TSH3 wRFLX, CMP, CBC #### [address] MCV (RBC) [Entitic vol] 85.1 fL Normal 80-100 [facility] Comment on above: Performed By: #### H S TROP, TSH3 wRFLX, CMP, CBC #### [address] Mean Corpuscular HGB Conc 33.4 g/dL Normal 32.0-35.0 [facility] Comment on above: Performed By: #### H S TROP, TSH3 wRFLX, CMP, CBC #### [address] Monocytes (Bld) [#/Vol] 0.8 10*3/uL Normal 0.0-0.8 [facility] Comment on above: Performed By: #### H S TROP, TSH3 wRFLX, CMP, CBC #### [place] [address] [place] Monocytes/100 WBC (Bld) 17.56 % Normal 0.00-20.00 [facility] Comment on above: Performed By: #### H S TROP, TSH3 wRFLX, CMP, CBC #### [address] Monocytes/100 WBC (Bld) 7.6 % Normal . [facility] Comment on above: Performed By: #### H S TROP, TSH3 wRFLX, CMP, CBC #### [facility] [address] [place] [address] Neutrophils (Bld) [#/Vol] 7.9 10*3/uL High 1.8-7.7 [facility] Comment on above: Performed By: #### H S TROP, TSH3 wRFLX, CMP, CBC #### [address] Neutrophils/100 WBC (Bld) 77.7 % Normal . [facility] Comment on above: Performed By: #### H S TROP, TSH3 wRFLX, CMP, CBC #### [address] NRBC% 0.1 /100{WBC} Normal 0-0.5 [facility] Comment on above: Performed By: #### H S TROP, TSH3 wRFLX, CMP, CBC #### [address] Platelet mean volume (Bld) [Entitic vol] 7.4 fL Normal 6.3-10.7 [facility] Comment on above: Performed By: #### H S TROP, TSH3 wRFLX, CMP, CBC #### [address] Platelets (Bld) [#/Vol] 405 10*3/uL Normal 150-450 [facility] Comment on above: Performed By: #### H S TROP, TSH3 wRFLX, CMP, CBC #### [address] RBC (Bld) [#/Vol] 5.25 10*6/uL High 3.60-5.00 [facility] Comment on above: Performed By: #### H S TROP, TSH3 wRFLX, CMP, CBC #### [address] WBC (Bld) [#/Vol] 10.2 10*3/uL Normal 3.8-11.6 [facility] Comment on above: Performed By: #### H S TROP, TSH3 wRFLX, CMP, CBC #### [facility] [address] Comprehensive Metabolic Pane [place] 05-13-2023 Albumin [Mass/Vol] 4.2 g/dL Normal 3.5-5.7 [facility] Comment on above: Performed By: #### H S TROP, TSH3 wRFLX, CMP, CBC #### [facility] [address] Albumin/Globulin [Mass ratio] 1.2 {ratio} Normal [facility] Comment on above: Performed By: #### H S TROP, TSH3 wRFLX, CMP, CBC #### [address] ALP [Catalytic activity/Vol] 79 U/L Normal 34-104 [facility] Comment on above: Performed By: #### H S TROP, TSH3 wRFLX, CMP, CBC #### [address] ALT [Catalytic activity/Vol] 15 U/L Normal 7-52 [facility] Comment on above: Performed By: #### H S TROP, TSH3 wRFLX, CMP, CBC #### [address] Anion gap [Moles/Vol] 12.3 mmol/L Normal 6.0-15.0 [facility] Comment on above: Performed By: #### H S TROP, TSH3 wRFLX, CMP, CBC #### [address] AST [Catalytic activity/Vol] 17 U/L Normal 13-39 [facility] Comment on above: Performed By: #### H S TROP, TSH3 wRFLX, CMP, CBC #### [address] Bilirubin [Mass/Vol] 0.3 mg/dL Normal 0.3-1.0 [facility] Comment on above: Performed By: #### H S TROP, TSH3 wRFLX, CMP, CBC #### [facility] [address] Calcium [Mass/Vol] 10.0 mg/dL Normal 8.6-10.3 [facility] Comment on above: Performed By: #### H S TROP, TSH3 wRFLX, CMP, CBC #### [facility] [address] Chloride [Moles/Vol] 89 mmol/L Low 98-107 [facility] Comment on above: Performed By: #### H S TROP, TSH3 wRFLX, CMP, CBC #### [facility] [address] [place] [address] CO2 [Moles/Vol] 41.7 mmol/L High 21.0-31.0 [facility] Comment on above: Performed By: #### H S TROP, TSH3 wRFLX, CMP, CBC #### [facility] [address] [place] [address] Creatinine [Mass/Vol] 0.47 mg/dL Low 0.60-1.20 [facility] Comment on above: Performed By: #### H S TROP, TSH3 wRFLX, CMP, CBC #### [facility] [address] [place] [address] [place] Creatinine Clr Calc Pharmacy 80.11 [facility] Comment on above: Result Comment: PERF ORMED BY: [place] [address] PATHOLOGIST MACHINE REPAIRER JASMEET LIN M.D. Performed By: #### H S TROP, TSH3 wRFLX, CMP, CBC #### [facility] [address] [place] [address] [place] GFR/1.73 sq M.predicted MDRD (S/P/Bld) [Vol rate/Area] mL/min/{1.73_m2} [facility] Comment on above: Performed By: #### H S TROP, TSH3 wRFLX, CMP, CBC #### [facility] [address] [place] [address] [place] Globulin (S) [Mass/Vol] 3.5 g/dL Normal [facility] Comment on above: Performed By: #### H S TROP, TSH3 wRFLX, CMP, CBC #### [address] Glucose [Mass/Vol] 104 mg/dL High 70-100 [facility] Comment on above: Result Comment: [place] Glucose Reference Range is dependent on time and content of last meal. Glucose of more than 200 mg/dL in a nonstressed, ambulatory subject supports the diagnosis of Diabetes Mellitus. ADA recommended reference range Performed By: #### H S TROP, TSH3 wRFLX, CMP, CBC #### [address] Potassium [Moles/Vol] 4.0 mmol/L Normal 3.5-5.1 [facility] Comment on above: Performed By: #### H S TROP, TSH3 wRFLX, CMP, CBC #### [address] Protein [Mass/Vol] 7.7 g/dL Normal 6.4-8.9 [facility] Comment on above: Performed By: #### H S TROP, TSH3 wRFLX, CMP, CBC #### [address] Sodium [Moles/Vol] 139 mmol/L Normal 136-145 [facility] Comment on above: Performed By: #### H S TROP, TSH3 wRFLX, CMP, CBC #### [address] Urea nitrogen [Mass/Vol] 13 mg/dL Normal 7-25 [facility] Comment on above: Performed By: #### H S TROP, TSH3 wRFLX, CMP, CBC #### [address] ECG 12 lead ECGon 05-13-2023 ECG 12 lead ECG [facility] [place] [address] [place] [address] Electrocardiograph Report Signed Patient: Cinthia Guerrero MR#: [id number] 881 : 1960 Acct:[id number] Age/Sex: 62 / F ADM Date: 05/13/23 [...] variant artifact Confirmed by Kd Carver DO ([id number]) on 05/13/2023 7:17:32 PM Referred By: Electronically Signed By:Kd Carver DO Transcribed By: MUS Signed By Kd Carver DO 1916 Normal [facility] Thyroid Stim Hormone w/Rflxo n 05-13-2023 Thyroid Stim Hormone w/Rflx 0.89 u[iU]/mL Normal 0.45-5.33 [facility] Comment on above: Result Comment: PERF ORMED BY: [place] [address] PATHOLOGIST MACHINE REPAIRER JASMEET LIN M.D. Performed By: #### H S TROP, TSH3 wRFLX, CMP, CBC #### [facility] [address] [place], [place] [id number] [facility] Troponin I High Sensitivityo n 05-13-2023 Troponin I High Sensitivity 3.4 pg/mL Normal 0.0-15.0 [facility] Comment on above: Result Comment: PERF ORMED BY: [place] [address] PATHOLOGIST MACHINE REPAIRER JASMEET LIN M.D. Performed By: #### H S TROP #### [facility] [address] [place] [address] [facility] Troponin I High Sensitivity 3.9 pg/mL Normal 0.0-15.0 [facility] Comment on above: Result Comment: PERF ORMED BY: [place] [address] PATHOLOGIST MACHINE REPAIRER JASMEET LIN M.D. Performed By: #### H S TROP, TSH3 wRFLX, CMP, CBC #### [address] XR chest 2V*on 05-13-2023 XR chest 2V* [facility] [place] [address] [place] [address] XRay Report Signed Patient: Cinthia Guerrero MR#: [id number] 881 : 1960 Acct:[id number] Age/Sex: 62 / F ADM Date: 05/13/23 Loc: ER Room: Type: [facility] ER Attending Dr: Copies to: [...] Wong Byrd M.D.05/13/2023 8:53 PM Dictation Location: [place] [address] Transcribed By: [facility] 05/13/232052 Dictated By: Wong Byrd DO 05/13/232051 Signed By: 05/13/232052 Normal [facility] CULTURE BLOODon 09-07-2022 Microscopic examination of [...] Trimethoprim/Sulfameth oxazole 20 S F Normal [facility] Comment on above: Performed By: #### B LDCX1 #### [facility] [address] [place] [address] Dr. Geri Pradhan CBC AUTO DIFFon 09-05-2022 BASO # 0.0 103/ul Normal 0.0-0.1 [facility] Comment on above: Performed By: #### C BC #### [facility] [address] [place] [address] Dr. Geri Pradhan Basophils/100 WBC (Bld) 0.2 % Normal 0.2-2.0 [facility] Comment on above: Performed By: #### C BC #### [facility] [address] [place] [address] Dr. Geri Pradhan EO # 0.0 103/ul Normal 0.0-0.7 [facility] Comment on above: Performed By: #### C BC #### [facility] [address] [place] [address] Dr. Geri Pradhan Eosinophils/100 WBC (Bld) 0.0 % Critically low 0.9-7.0 [facility] Comment on above: Performed By: #### C BC #### [facility] [address] [place] [address] Dr. Geri Pradhan Erythrocyte distribution width (RBC) [Ratio] 13.8 % Normal 11.0-15.0 [facility] Comment on above: Performed By: #### C BC #### [facility] [address] [place] [address] Dr. Geri Pradhan Hematocrit (Bld) [Volume fraction] 38.8 % Normal 36.0-48.0 [facility] Comment on above: Performed By: #### C BC #### [facility] [address] [place] [address] [address] Geri Pradhan Hemoglobin (Bld) [Mass/Vol] 11.7 g/dL Critically low 12.0-16.0 [facility] Comment on above: Performed By: #### C BC #### [facility] [address] [place] [address] [address] Geri Pradhan IG # 0.27 10e3/ul Critically high 0.00-0.03 [facility] Comment on above: Performed By: #### C BC #### [facility] [address] [place] [address] Dr. Geri Pradhan IG % 2.9 % Critically high 0.0-0.5 [facility] Comment on above: Performed By: #### C BC #### [facility] [address] [place] [address] Dr. Geri Pradhan LYMPH # 0.4 103/ul Critically low 1.2-3.8 [facility] Comment on above: Performed By: #### C BC #### [facility] [address] [place] [address] Dr. Geri Pradhan Lymphocytes/100 WBC (Bld) 4.4 % Critically low 20.5-60.0 [facility] Comment on above: Performed By: #### C BC #### [facility] [address] [place] [address] Dr. Geri Pradhan MANUAL DIFF REQ NO Normal [facility] Comment on above: Performed By: #### C BC #### [facility] [address] [place] [address] Dr. Geri Pradhan MCH (RBC) [Entitic mass] 26.8 pg Normal 26.7-34.0 [facility] Comment on above: Performed By: #### C BC #### [facility] [address] [place] [address] Dr. Geri Pradhan MCHC (RBC) [Mass/Vol] 30.2 g/dL Normal 29.9-35.2 [facility] Comment on above: Performed By: #### C BC #### [facility] [address] [place] [address] [address] Geri Pradhan MCV (RBC) [Entitic vol] 88.8 fL Normal 81.0-99.0 [facility] Comment on above: Performed By: #### C BC #### [facility] [address] [place] [address] [address] Geri Pradhan MONO # 0.3 103/ul Normal 0.3-0.8 [facility] Comment on above: Performed By: #### C BC #### [facility] [address] [place] [address] [address] Geri Pradhan Monocytes/100 WBC (Bld) 3.6 % Normal 1.7-12.0 [facility] Comment on above: Performed By: #### C BC #### [facility] [address] [place] [address] [address] Geri Pradhan NEUT # 8.2 103/ul Critically high 1.4-6.5 [facility] Comment on above: Performed By: #### C BC #### [facility] [address] [place] [address] [address] Geri Pradhan Neutrophils/100 WBC (Bld) 88.9 % Critically high 43.0-75.0 [facility] Comment on above: Performed By: #### C BC #### [facility] [address] [place] [address] [address] Geri Pradhan Platelet mean volume (Bld) [Entitic vol] 9.1 fL Critically low 9.5-13.5 [facility] Comment on above: Performed By: #### C BC #### [facility] [address] [place] [address] [address] Geri Pradhan PLT 314 103/ul Normal 150-450 [facility] Comment on above: Performed By: #### C BC #### [facility] [address] [place] [address] [address] Geri Pradhan RBC 4.37 106/ul Normal 4.20-5.40 [facility] Comment on above: Performed By: #### C BC #### [facility] [address] [place] [address] [address] Geri Pradhan WBC 9.2 103/ul Normal 4.0-11.0 [facility] Comment on above: Performed By: #### C BC #### [facility] [address] [place] [address] [address] Geri Pradhan PROF 14(COMP METB)on 023 Albumin [Mass/Vol] 2.7 g/dL Critically low 3.4-5.0 [facility] Comment on above: Performed By: #### Gerry INGRAM, CMP #### [facility] [address] [place] [address] [address] Geri Pradhan Albumin/Globulin [Mass ratio] 0.7 {ratio} Normal [facility] Comment on above: Performed By: #### Gerry INGRAM, CMP #### [facility] [address] [place] [address] Dr. Geri Pradhan ALP [Catalytic activity/Vol] 65 U/L Normal 46-116 [facility] Comment on above: Performed By: #### Gerry INGRAM, CMP #### [facility] [address] [place] [address] [address] Geri Pradhan ALT [Catalytic activity/Vol] 23 U/L Normal 14-59 [facility] Comment on above: Performed By: #### Gerry INGRAM, CMP #### [facility] [address] [place] [address] [address] Geri Pradhan Anion gap [Moles/Vol] 2.0 mmol/L Normal [facility] Comment on above: Performed By: #### Gerry INGRAM, CMP #### [facility] [address] [place] [address] [address] Geri Pradhan AST [Catalytic activity/Vol] 17 U/L Normal 15-37 [facility] Comment on above: Performed By: #### Gerry INGRAM, CMP #### [facility] [address] [place] [address] Dr. Geri Pradhan Bilirubin [Mass/Vol] 0.1 mg/dL Critically low 0.2-1.0 [facility] Comment on above: Performed By: #### Gerry INGRAM, CMP #### [facility] [address] [place] [address] Dr. Geri Pradhan Calcium [Mass/Vol] 9.0 mg/dL Normal 8.5-10.1 [facility] Comment on above: Performed By: #### Gerry INGRAM, CMP #### [facility] [address] [address] [address] Geri Pradhan Chloride [Moles/Vol] 99 mmol/L Normal 98-107 [facility] Comment on above: Performed By: #### Gerry INGRAM, CMP #### [facility] [address] [address] [address] Geri Pradhan CO2 [Moles/Vol] 45.3 mmol/L Critically high 21.0-32.0 [facility] Comment on above: Performed By: #### Gerry INGRAM, CMP #### [facility] [address] [place] [address] Dr. Geri Pradhan Creatinine [Mass/Vol] 0.50 mg/dL Critically low 0.55-1.02 [facility] Comment on above: Performed By: #### Gerry INGRAM, CMP #### [facility] [address] [place] [address] Dr. Geri Pradhan EGFR-AF MOLDOVAN >60 Normal >=60 [facility] Comment on above: Performed By: #### Gerry INGRAM, CMP #### [facility] [address] [address] [address] Geri Pradhan EGFR-NON AF MOLDOVAN >60 Normal >=60 [facility] Comment on above: Performed By: #### Gerry INGRAM, CMP #### [facility] [address] [address] [address] Geri Pradhan Globulin (S) [Mass/Vol] 3.7 g/dL Normal [facility] Comment on above: Performed By: #### Gerry INGRAM, CMP #### [facility] [address] [address] [address] Geri Pradhan Glucose [Mass/Vol] 180 mg/dL Critically high 74-106 [facility] Comment on above: Performed By: #### Gerry INGRAM, CMP #### [facility] [address] [place] [address] Dr. Geri Pradhan Potassium [Moles/Vol] 4.3 mmol/L Normal 3.5-5.1 [facility] Comment on above: Performed By: #### Gerry INGRAM, CMP #### [facility] [address] [place] [address] Dr. Geri Pradhan Protein [Mass/Vol] 6.4 g/dL Normal 6.4-8.2 [facility] Comment on above: Performed By: #### Gerry INGRAM, CMP #### [facility] [address] [place] [address] Dr. Geri Pradhan Sodium [Moles/Vol] 142 mmol/L Normal 136-145 [facility] Comment on above: Performed By: #### Gerry INGRAM, CMP #### [facility] [address] [place] [address] Dr. Geri Pradhan Urea nitrogen [Mass/Vol] 13.0 mg/dL Normal 7.0-18.0 [facility] Comment on above: Performed By: #### Gerry INGRAM, CMP #### [facility] [address] [place] [address] Dr. Geri Pradhan Urea nitrogen/Creatinine [Mass ratio] 26.0 mg/mg Normal [facility] Comment on above: Performed By: #### Gerry INGRAM, CMP #### [facility] [address] [place] [address] Dr. Geri Pradhan THEOPHYLLINEon 09-05-2022 THEOPHYLLINE <2.0 Critically low 10.0-20.0 [facility] Comment on above: Performed By: #### Gerry INGRAM, CMP #### [facility] [address] [place] [address] Dr. Geri Pradhan CBC AUTO DIFFon 09-04-2022 BASO # 0.0 103/ul Normal 0.0-0.1 [facility] Comment on above: Performed By: #### R SPLUS #### [facility] [address] [place] [address] Dr. Geri Pradhan Basophils/100 WBC (Bld) 0.1 % Critically low 0.2-2.0 [facility] Comment on above: Performed By: #### R SPLUS #### [facility] [address] [address] [address] Geri Pradhan EO # 0.0 103/ul Normal 0.0-0.7 [facility] Comment on above: Performed By: #### R SPLUS #### [facility] [address] [address] [address] Geri Pradhan Eosinophils/100 WBC (Bld) 0.0 % Critically low 0.9-7.0 [facility] Comment on above: Performed By: #### R SPLUS #### [facility] [address] [place] [address] Dr. Geri Pradhan Erythrocyte distribution width (RBC) [Ratio] 13.4 % Normal 11.0-15.0 [facility] Comment on above: Performed By: #### R SPLUS #### [facility] [address] [place] [address] Dr. Geri Pradhan Hematocrit (Bld) [Volume fraction] 42.8 % Normal 36.0-48.0 [facility] Comment on above: Performed By: #### R SPLUS #### [facility] [address] [place] [address] Dr. Geri Pradhan Hemoglobin (Bld) [Mass/Vol] 12.8 g/dL Normal 12.0-16.0 [facility] Comment on above: Performed By: #### R SPLUS #### [facility] [address] [place] [address] Dr. Geri Pradhan IG # 0.25 10e3/ul Critically high 0.00-0.03 [facility] Comment on above: Performed By: #### R SPLUS #### [facility] [address] [place] [address] Dr. Geri Pradhan IG % 2.0 % Critically high 0.0-0.5 [facility] Comment on above: Performed By: #### R SPLUS #### [facility] [address] [address] [address] Geri Pradhan LYMPH # 0.4 103/ul Critically low 1.2-3.8 [facility] [place] Comment on above: Performed By: #### R SPLUS #### [facility] [address] [address] [address] Geri Pradhan Lymphocytes/100 WBC (Bld) 3.6 % Critically low 20.5-60.0 [facility] Comment on above: Performed By: #### R SPLUS #### [facility] [address] [address] [address] Geri Pradhan MANUAL DIFF REQ NO Normal [facility] Comment on above: Performed By: #### R SPLUS #### [facility] [address] [address] [address] Geri Pradhan MCH (RBC) [Entitic mass] 26.8 pg Normal 26.7-34.0 [facility] Comment on above: Performed By: #### R SPLUS #### [facility] [address] [place] [address] Dr. Geri Pradhan MCHC (RBC) [Mass/Vol] 29.9 g/dL Normal 29.9-35.2 [facility] Comment on above: Performed By: #### R SPLUS #### [facility] [address] [place] [address] Dr. Geri Pradhan MCV (RBC) [Entitic vol] 89.5 fL Normal 81.0-99.0 [facility] Comment on above: Performed By: #### R SPLUS #### [facility] [address] [place] [address] Dr. Geri Pradhan MONO # 0.2 103/ul Critically low 0.3-0.8 [facility] [place] Comment on above: Performed By: #### R SPLUS #### [facility] [address] [place] [address] Dr. Geri Pradhan Monocytes/100 WBC (Bld) 1.9 % Normal 1.7-12.0 [facility] Comment on above: Performed By: #### R SPLUS #### [facility] [address] [address] [address] Geri Pradhan NEUT # 11.4 103/ul Critically high 1.4-6.5 [facility] Comment on above: Performed By: #### R SPLUS #### [facility] [address] [address] [address] Geri Pradhan Neutrophils/100 WBC (Bld) 92.4 % Critically high 43.0-75.0 [facility] Comment on above: Performed By: #### R SPLUS #### [facility] [address] [address] [address] Geri Pradhan Platelet mean volume (Bld) [Entitic vol] 8.9 fL Critically low 9.5-13.5 [facility] Comment on above: Performed By: #### R SPLUS #### [facility] [address] [address] [address] Geri Pradhan PLT 350 103/ul Normal 150-450 [facility] Comment on above: Performed By: #### R SPLUS #### [facility] [address] [address] [address] Geri Pradhan RBC 4.78 106/ul Normal 4.20-5.40 [facility] Comment on above: Performed By: #### R SPLUS #### [facility] [address] [address] [address] Geri Pradhan WBC 12.3 103/ul Critically high 4.0-11.0 [facility] Comment on above: Performed By: #### R SPLUS #### [facility] [address] [address] [address] Geri Pradhan POINT OF CARE GLUCOSEon 05-2 Glucose [Mass/Vol] 142 mg/dL Critically high 74-106 [facility] Comment on above: Performed By: #### P OCGLUC #### [facility] [address] [address] [address] Geri Pradhan Glucose [Mass/Vol] 198 mg/dL Critically high 74-106 [facility] Comment on above: Performed By: #### T JUAN JOSE, CMP #### [facility] [address] [address] [address] Geri Pradhan Glucose [Mass/Vol] 147 mg/dL Critically high 74-106 [facility] Comment on above: Performed By: #### Gerry INGRAM, CMP #### [facility] [address] [address] [address] Geri Pradhan PROF 14(COMP METB)on 023 Albumin [Mass/Vol] 2.9 g/dL Critically low 3.4-5.0 [facility] Comment on above: Performed By: #### Gerry INGRAM, CMP #### [facility] [address] [address] [address] Geri Pradhan Albumin/Globulin [Mass ratio] 0.7 {ratio} Normal [facility] Comment on above: Performed By: #### Gerry INGRAM, CMP #### [facility] [address] [place] [address] Dr. Geri Pradhan ALP [Catalytic activity/Vol] 73 U/L Normal 46-116 [facility] Comment on above: Performed By: #### Gerry INGRAM, CMP #### [facility] [address] [address] [address] Geri Pradhan ALT [Catalytic activity/Vol] 24 U/L Normal 14-59 [facility] Comment on above: Performed By: #### Gerry INGRAM, CMP #### [facility] [address] [address] [address] Geri Pradhan Anion gap [Moles/Vol] 3.2 mmol/L Normal [facility] Comment on above: Performed By: #### Gerry INGRAM, CMP #### [facility] [address] [address] [address] Geri Pradhan AST [Catalytic activity/Vol] 17 U/L Normal 15-37 [facility] Comment on above: Performed By: #### Gerry INGRAM, CMP #### [facility] [address] [address] [address] Geri Pradhan Bilirubin [Mass/Vol] 0.1 mg/dL Critically low 0.2-1.0 [facility] Comment on above: Performed By: #### Gerry INGRAM, CMP #### [facility] [address] [address] [address] Geri Pradhan Calcium [Mass/Vol] 9.4 mg/dL Normal 8.5-10.1 [facility] Comment on above: Performed By: #### Gerry INGRAM, CMP #### [facility] [address] [place] [address] Dr. Geri Pradhan Chloride [Moles/Vol] 100 mmol/L Normal 98-107 [facility] Comment on above: Performed By: #### Gerry INGRAM, CMP #### [facility] [address] [address] [address] Geri Pradhan CO2 [Moles/Vol] 43.2 mmol/L Critically high 21.0-32.0 [facility] Comment on above: Performed By: #### Gerry INGRAM, CMP #### [facility] [address] [place] [address] Dr. Geri Pradhan Creatinine [Mass/Vol] 0.52 mg/dL Critically low 0.55-1.02 [facility] Comment on above: Performed By: #### Gerry INGRAM, CMP #### [facility] [address] [place] [address] Dr. Geri Pradhan EGFR-AF MOLDOVAN >60 Normal >=60 [facility] Comment on above: Performed By: #### Gerry INGRAM, CMP #### [facility] [address] [place] [address] Dr. Geri Pradhan EGFR-NON AF MOLDOVAN >60 Normal >=60 [facility] Comment on above: Performed By: #### Gerry INGRAM, CMP #### [facility] [address] [place] [address] Dr. Geri Pradhan Globulin (S) [Mass/Vol] 4.2 g/dL Normal [facility] Comment on above: Performed By: #### Gerry INGRAM, CMP #### [facility] [address] [place] [address] Dr. eGri Pradhan Glucose [Mass/Vol] 138 mg/dL Critically high 74-106 [facility] Comment on above: Performed By: #### Gerry ESCALANETO, CMP #### [facility] [address] [place] [address] Dr. Geri Pradhan Potassium [Moles/Vol] 4.4 mmol/L Normal 3.5-5.1 [facility] Comment on above: Performed By: #### Gerry INGRAM, CMP #### [facility] [address] [place] [address] Dr. Geri Pradhan Protein [Mass/Vol] 7.1 g/dL Normal 6.4-8.2 [facility] Comment on above: Performed By: #### T JUAN JOSE, CMP #### [facility] [address] [place] [address] Dr. Geri Pradhan Sodium [Moles/Vol] 142 mmol/L Normal 136-145 [facility] Comment on above: Performed By: #### Gerry INGRAM, CMP #### [facility] [address] [place] [address] Dr. Geri Pradhan Urea nitrogen [Mass/Vol] 15.0 mg/dL Normal 7.0-18.0 [facility] Comment on above: Performed By: #### Gerry INGRAM, CMP #### [facility] [address] [place] [address] Dr. Geri Pradhan Urea nitrogen/Creatinine [Mass ratio] 28.8 mg/mg Normal [facility] Comment on above: Performed By: #### Gerry INGRAM, CMP #### [facility] [address] [place] [address] Dr. Geri Pradhan RESPIRATORY PANEL PLUSon Adenovirus Not detected Normal NOT DETECTED [facility] Comment on above: Performed By: #### R SPLUS #### [facility] [address] [place] [address] Dr. Geri Pradhan B. Parapertusis Not detected Normal NOT DETECTED [facility] Comment on above: Performed By: #### R SPLUS #### [facility] [address] [place] [address] Dr. Geri Pradhan B. Pertussis Not detected Normal NOT DETECTED [facility] Comment on above: Performed By: #### R SPLUS #### [facility] [address] [place] [address] Dr. Geri Pradhan Chlamydia Pneumoniae Not detected Normal NOT DETECTED [facility] Comment on above: Performed By: #### R SPLUS #### [facility] [address] [place] [address] Dr. Geri Pradhan Coronavirus 229E Not detected Normal NOT DETECTED [facility] Comment on above: Performed By: #### R SPLUS #### [facility] [address] [place] [address] Dr. Geri Pradhan Coronavirus HKU1 Not detected Normal NOT DETECTED [facility] Comment on above: Performed By: #### R SPLUS #### [facility] [address] [place] [address] Dr. Geri Pradhan Coronavirus NL63 Not detected Normal NOT DETECTED [facility] Comment on above: Performed By: #### R SPLUS #### [facility] [address] [place] [address] Dr. Geri Pradhan Coronavirus OC43 Not detected Normal NOT DETECTED [facility] Comment on above: Performed By: #### R SPLUS #### [facility] [address] [place] [address] Dr. Geri Pradhan Influenza A H1 Not detected Normal NOT DETECTED [facility] Comment on above: Performed By: #### R SPLUS #### [facility] [address] [place] [address] Dr. Geri Pradhan Influenza A H1 2009 Not detected Normal NOT DETECTED [facility] Comment on above: Performed By: #### R SPLUS #### [facility] [address] [place] [address] Dr. Geri Pradhan Influenza A H3 Not detected Normal NOT DETECTED [facility] Comment on above: Performed By: #### R SPLUS #### [facility] [address] [place] [address] Dr. Geri Pradhan Influenza B Not detected Normal NOT DETECTED [facility] Comment on above: Performed By: #### R SPLUS #### [facility] [address] [place] [address] Dr. Geri Pradhan Metapneumovirus Not detected Normal NOT DETECTED [facility] Comment on above: Performed By: #### R SPLUS #### [facility] [address] [place] [address] Dr. Geri Pradhan Mycoplas. Pneumoniae Not detected Normal NOT DETECTED [facility] Comment on above: Performed By: #### R SPLUS #### [facility] [address] [place] [address] Dr. Geri Pradhan Parainfluenza 1 Not detected Normal NOT DETECTED [facility] Comment on above: Performed By: #### R SPLUS #### [facility] [address] [place] [address] Dr. Geri Pradhan Parainfluenza 2 Not detected Normal NOT DETECTED [facility] Comment on above: Performed By: #### R SPLUS #### [facility] [address] [place] [address] Dr. Geri Pradhan Parainfluenza 3 Detected Abnormal NOT DETECTED [facility] Comment on above: Performed By: #### R SPLUS #### [facility] [address] [place] [address] Dr. Geri Pradhan Parainfluenza 4 Not detected Normal NOT DETECTED [facility] Comment on above: Performed By: #### R SPLUS #### [facility] [address] [place] [address] Dr. Geri Pradhan Rhino/Enterovirus Not detected Normal NOT DETECTED [facility] Comment on above: Performed By: #### R SPLUS #### [facility] [address] [place] [address] Dr. Geri Pradhan RP2 Header 1 RESPIRATORY PANEL: VIRUSES Normal [facility] Comment on above: Performed By: #### R SPLUS #### [facility] [address] [place] [address] Dr. Geri Pradhan RP2 Header 2 RESPIRATORY PANEL: BACTERIA Normal [facility] Comment on above: Performed By: #### R SPLUS #### [facility] [address] [place] [address] Dr. Geri Pradhan RSV Not detected Normal NOT DETECTED [facility] Comment on above: Performed By: #### R SPLUS #### [facility] [address] [place] [address] Dr. Geri Pradhan SARS-CoV-2 (COVID-19) RNA KRUNAL+probe Ql (Unsp spec) Not detected Normal NOT DETECTED [facility] Comment on above: Performed By: #### R SPLUS #### [facility] [address] [place] [address] Dr. Geri Pradhan THEOPHYLLINEon 09-04-2022 THEOPHYLLINE <2.0 Critically low 10.0-20.0 [facility] Comment on above: Performed By: #### T JUAN JOSE, CMP #### [facility] [address] [place] [address] Dr. Geri Pradhan CBC AUTO DIFFon 09-03-2022 BASO # 0.0 103/ul Normal 0.0-0.1 [facility] Comment on above: Performed By: #### P OCGLUC #### [facility] [address] [place] [address] Dr. Geri Pradhan Basophils/100 WBC (Bld) 0.1 % Critically low 0.2-2.0 [facility] Comment on above: Performed By: #### P OCGLUC #### [facility] [address] [place] [address] Dr. Geri Pradhan EO # 0.0 103/ul Normal 0.0-0.7 [facility] Comment on above: Performed By: #### P OCGLUC #### [facility] [address] [place] [address] Dr. Geri Pradhan Eosinophils/100 WBC (Bld) 0.0 % Critically low 0.9-7.0 [facility] Comment on above: Performed By: #### P OCGLUC #### [facility] [address] [place] [address] Dr. Geri Pradhan Erythrocyte distribution width (RBC) [Ratio] 13.0 % Normal 11.0-15.0 [facility] Comment on above: Performed By: #### P OCGLUC #### [facility] [address] [place] [address] Dr. Geri Pradhan Hematocrit (Bld) [Volume fraction] 42.1 % Normal 36.0-48.0 [facility] Comment on above: Performed By: #### P OCGLUC #### [facility] [address] [address] [address] Geri Pradhan Hemoglobin (Bld) [Mass/Vol] 12.3 g/dL Normal 12.0-16.0 [facility] Comment on above: Performed By: #### P OCGLUC #### [facility] [address] [address] [address] Geri Pradhan IG # 0.13 10e3/ul Critically high 0.00-0.03 [facility] Comment on above: Performed By: #### P OCGLUC #### [facility] [address] [place] [address] Dr. Geri Pradhan IG % 1.2 % Critically high 0.0-0.5 [facility] Comment on above: Performed By: #### P OCGLUC #### [facility] [address] [place] [address] Dr. Geri Pradhan LYMPH # 0.6 103/ul Critically low 1.2-3.8 [facility] Comment on above: Performed By: #### P OCGLUC #### [facility] [address] [place] [address] Dr. Geri Pradhan Lymphocytes/100 WBC (Bld) 6.0 % Critically low 20.5-60.0 [facility] Comment on above: Performed By: #### P OCGLUC #### [facility] [address] [place] [address] Dr. Geri Pradhan MANUAL DIFF REQ NO Normal [facility] Comment on above: Performed By: #### P OCGLUC #### [facility] [address] [address] [address] Geri Pradhan MCH (RBC) [Entitic mass] 26.0 pg Critically low 26.7-34.0 [facility] Comment on above: Performed By: #### P OCGLUC #### [facility] [address] [place] [address] Dr. Geri Pradhan MCHC (RBC) [Mass/Vol] 29.2 g/dL Critically low 29.9-35.2 [facility] Comment on above: Performed By: #### P OCGLUC #### [facility] [address] [address] [address] Geri Pradhan MCV (RBC) [Entitic vol] 89.0 fL Normal 81.0-99.0 [facility] Comment on above: Performed By: #### P OCGLUC #### [facility] [address] [address] [address] Geri Pradhan MONO # 0.2 103/ul Critically low 0.3-0.8 [facility] Comment on above: Performed By: #### P OCGLUC #### [facility] [address] [address] [address] Geri Pradhan Monocytes/100 WBC (Bld) 2.0 % Normal 1.7-12.0 [facility] Comment on above: Performed By: #### P OCGLUC #### [facility] [address] [address] [address] Geri Pradhan NEUT # 9.6 103/ul Critically high 1.4-6.5 [facility] Comment on above: Performed By: #### P OCGLUC #### [facility] [address] [address] [address] Geri Pradhan Neutrophils/100 WBC (Bld) 90.7 % Critically high 43.0-75.0 [facility] Comment on above: Performed By: #### P OCGLUC #### [facility] [address] [address] [address] Geri Pradhan Platelet mean volume (Bld) [Entitic vol] 9.1 fL Critically low 9.5-13.5 [facility] Comment on above: Performed By: #### P OCGLUC #### [facility] [address] [address] [address] Geri Pradhan PLT 302 103/ul Normal 150-450 [facility] Comment on above: Performed By: #### P OCGLUC #### [facility] [address] [address] [address] Geri Pradhan RBC 4.73 106/ul Normal 4.20-5.40 [facility] Comment on above: Performed By: #### P OCGLUC #### [facility] [address] [address] [address] Geri Pradhan WBC 10.6 103/ul Normal 4.0-11.0 [facility] Comment on above: Performed By: #### P OCGLUC #### [facility] [address] [address] [address] Geri Pradhan POINT OF CARE GLUCOSEon 08-12 Glucose [Mass/Vol] 130 mg/dL Critically high 74-106 [facility] Comment on above: Performed By: #### Gerry INGRAM, CMP #### [facility] [address] [address] [address] Geri Pradhan Glucose [Mass/Vol] 217 mg/dL Critically high 74-106 [facility] Comment on above: Performed By: #### Gerry INGRAM, CMP #### [facility] [address] [address] [address] Geri Pradhan Glucose [Mass/Vol] 327 mg/dL Critically high [facility] Comment on above: Performed By: #### C VDTBH #### [facility] [address] [place] [address] Dr. Geri Pradhan Glucose [Mass/Vol] 146 mg/dL Critically high -106 [facility] Comment on above: Performed By: #### Gerry INGRAM, CMP #### [facility] [address] [place] [address] Dr. Geri Pradhan Glucose [Mass/Vol] 174 mg/dL Critically high -106 [facility] Comment on above: Performed By: #### Gerry INGRAM, CMP #### [facility] [address] [place] [address] Dr. Geri Pradhan PROF 14(COMP METB)on 023 Albumin [Mass/Vol] 2.9 g/dL Critically low 3.4-5.0 [facility] Comment on above: Performed By: #### P OCGLUC #### [facility] [address] [address] [address] Geri Pradhan Albumin/Globulin [Mass ratio] 0.7 {ratio} Normal [facility] Comment on above: Performed By: #### P OCGLUC #### [facility] [address] [address] [address] Geri Pradhan ALP [Catalytic activity/Vol] 74 U/L Normal 46-116 [facility] Comment on above: Performed By: #### P OCGLUC #### [facility] [address] [address] [address] Geri Pradhan ALT [Catalytic activity/Vol] 21 U/L Normal 14-59 [facility] Comment on above: Performed By: #### P OCGLUC #### [facility] [address] [address] [address] Geri Pradhan Anion gap [Moles/Vol] 4.4 mmol/L Normal [facility] Comment on above: Performed By: #### P OCGLUC #### [facility] [address] [address] [address] Geri Pradhan AST [Catalytic activity/Vol] 17 U/L Normal 15-37 [facility] Comment on above: Performed By: #### P OCGLUC #### [facility] [address] [address] [address] Geri Pradhan Bilirubin [Mass/Vol] 0.2 mg/dL Normal 0.2-1.0 [facility] Comment on above: Performed By: #### P OCGLUC #### [facility] [address] [address] [address] Geri Pradhan Calcium [Mass/Vol] 9.4 mg/dL Normal 8.5-10.1 [facility] Comment on above: Performed By: #### P OCGLUC #### [facility] [address] [address] [address] Geri Pradhan Chloride [Moles/Vol] 99 mmol/L Normal 98-107 [facility] Comment on above: Performed By: #### P OCGLUC #### [facility] [address] [address] [address] Geri Pradhan CO2 [Moles/Vol] 42.8 mmol/L Critically high 21.0-32.0 [facility] Comment on above: Performed By: #### P OCGLUC #### [facility] [address] [address] [address] Geri Pradhan Creatinine [Mass/Vol] 0.55 mg/dL Normal 0.55-1.02 [facility] Comment on above: Performed By: #### P OCGLUC #### [facility] [address] [address] [address] Geri Pradhan EGFR-AF MOLDOVAN >60 Normal >=60 [facility] Comment on above: Performed By: #### P OCGLUC #### [facility] [address] [place] [address] Dr. Geri Pradhan EGFR-NON AF MOLDOVAN >60 Normal >=60 [facility] Comment on above: Performed By: #### P OCGLUC #### [facility] [address] [address] [address] Geri Pradhan Globulin (S) [Mass/Vol] 4.4 g/dL Normal [facility] Comment on above: Performed By: #### P OCGLUC #### [facility] [address] [address] [address] Geir Pradhan Glucose [Mass/Vol] 136 mg/dL Critically high 74-106 [facility] Comment on above: Performed By: #### P OCGLUC #### [facility] [address] [address] [address] Geri Pradhan Potassium [Moles/Vol] 4.2 mmol/L Normal 3.5-5.1 [facility] Comment on above: Performed By: #### P OCGLUC #### [facility] [address] [address] [address] Geri Pradhan Protein [Mass/Vol] 7.3 g/dL Normal 6.4-8.2 [facility] Comment on above: Performed By: #### P OCGLUC #### [facility] [address] [address] [address] Geri Pradhan Sodium [Moles/Vol] 142 mmol/L Normal 136-145 [facility] Comment on above: Performed By: #### P OCGLUC #### [facility] [address] [address] [address] Geri Pradhan Urea nitrogen [Mass/Vol] 14.0 mg/dL Normal 7.0-18.0 [facility] Comment on above: Performed By: #### P OCGLUC #### [facility] [address] [address] [address] Geri Pradhan Urea nitrogen/Creatinine [Mass ratio] 25.5 mg/mg Normal [facility] Comment on above: Performed By: #### P OCGLUC #### [facility] [address] [address] [address] Geri Pradhan THEOPHYLLINEon 09-03-2022 THEOPHYLLINE <2.0 Critically low 10.0-20.0 [facility] Comment on above: Performed By: #### P OCGLUC #### [facility] [address] [place] [address] Dr. Geri Pradhan MAGNESIUMon 09-02-2022 Magnesium [Mass/Vol] 2.3 mg/dL Normal 1.8-2.4 [facility] Comment on above: Performed By: #### T JUAN JOSE, CMP #### [facility] [address] [address] [address] Geri Pradhan POINT OF CARE GLUCOSEon 08-12 Glucose [Mass/Vol] 118 mg/dL Critically high -106 [facility] Comment on above: Performed By: #### R SPLUS #### [facility] [address] [place] [address] Dr. Geri Pradhan Glucose [Mass/Vol] 263 mg/dL Critically high -106 [facility] Comment on above: Performed By: #### R SPLUS #### [facility] [address] [place] [address] Dr. Geri Pradhan Glucose [Mass/Vol] 160 mg/dL Critically high -106 [facility] Comment on above: Performed By: #### P OCGLUC #### [facility] [address] [address] [address] Geri Pradhan PROF CHEM 8 (BAS METB)on Anion gap [Moles/Vol] 5.3 mmol/L Normal [facility] Comment on above: Performed By: #### Gerry INGRAM, CMP #### [facility] [address] [place] [address] Dr. Geri Pradhan Calcium [Mass/Vol] 9.5 mg/dL Normal 8.5-10.1 [facility] Comment on above: Performed By: #### Gerry INGRAM, CMP #### [facility] [address] [address] [address] Geri Pradhan Chloride [Moles/Vol] 94 mmol/L Critically low 98-107 [facility] Comment on above: Performed By: #### Gerry INGRAM, CMP #### [facility] [address] [place] [address] Dr. Geri Pradhan CO2 [Moles/Vol] 42.5 mmol/L Critically high 21.0-32.0 [facility] Comment on above: Performed By: #### Gerry INGRAM, CMP #### [facility] [address] [place] [address] Dr. Geri Pradhan Creatinine [Mass/Vol] 0.66 mg/dL Normal 0.55-1.02 [facility] Comment on above: Performed By: #### Gerry INGRAM, CMP #### [facility] [address] [place] [address] Dr. Geri Pradhan EGFR-AF MOLDOVAN >60 Normal >=60 [facility] Comment on above: Performed By: #### Gerry INGRAM, CMP #### [facility] [address] [place] [address] Dr. Geri Pradhan EGFR-NON AF MOLDOVAN >60 Normal >=60 [facility] Comment on above: Performed By: #### Gerry INGRAM, CMP #### [facility] [address] [place] [address] Dr. Geri Pradhan Glucose [Mass/Vol] 183 mg/dL Critically high 74-106 [facility] Comment on above: Performed By: #### Gerry INGRAM, CMP #### [facility] [address] [address] [address] Geri Pradhan Potassium [Moles/Vol] 3.8 mmol/L Normal 3.5-5.1 [facility] Comment on above: Performed By: #### Gerry INGRAM, CMP #### [facility] [address] [address] [address] Geri Pradhan Sodium [Moles/Vol] 138 mmol/L Normal 136-145 [facility] Comment on above: Performed By: #### Gerry INGRAM, CMP #### [facility] [address] [address] [address] Geri Pradhan Urea nitrogen [Mass/Vol] 10.0 mg/dL Normal 7.0-18.0 [facility] Comment on above: Performed By: #### Gerry INGRAM, CMP #### [facility] [address] [place] [address] Dr. Geri Pradhan Urea nitrogen/Creatinine [Mass ratio] 15.2 mg/mg Normal [facility] Comment on above: Performed By: #### Gerry INGRAM, CMP #### [facility] [address] [place] [address] Dr. Geri Pradhan [facility] THEOPHYLLINE <2.0 Critically low 10.0-20.0 [facility] Comment on above: Performed By: #### R SPLUS #### [facility] [address] [place] [address] Dr. Geri Pradhan BLOOD CULTURE ID PANELon A. baumannii Not detected Normal NOT DETECTED [facility] Comment on above: Performed By: #### Gerry INGRAM, CMP #### [facility] [address] [place] [address] Dr. Geri Pradhan Bacteriodes fragilis Not detected Normal NOT DETECTED [facility] Comment on above: Performed By: #### Gerry INGRAM, CMP #### [facility] [address] [place] [address] Dr. Geri Pradhan BCID CONTROLS PASSED Normal [facility] Comment on above: Performed By: #### Gerry INGRAM, CMP #### [facility] [address] [address] [address] Geri GARCÍADBTHD BLOOD CULTURE BOTTLE INFORMATION [facility] Comment on above: Performed By: #### Gerry INGRAM, CMP #### [facility] [address] [address] [address] Geri Pradhan BCIDHD1 ANTIMICROBIAL RESISTANCE GENES [facility] Comment on above: Performed By: #### Gerry INGRAM, CMP #### [facility] [address] [address] [address] Geri Pradhan BCIDHD2 SEE BELOW [facility] Comment on above: Result Comment: Note : Antimicrobial resitance can occur via multiple mechanisms. A Not Detected result for the [employer] antomicrobial resistance gene assays does not indicate antimicrobial susceptibility. Subculturing is required for species identification and susceptibility testing of isolates. Performed By: #### Gerry INGRAM, CMP #### [facility] [address] [place] [address] Dr. Geri Pradhan BCIDHD3 Positive [facility] Comment on above: Performed By: #### Gerry INGRAM, CMP #### [facility] [address] [address] [address] Geri Pradhan BCIDHD4 Negative [facility] Comment on above: Performed By: #### Gerry INGRAM, CMP #### [facility] [address] [place] [address] Dr. Geri Pradhan BCIDHD5 YEAST [facility] Comment on above: Performed By: #### Gerry INGRAM, CMP #### [facility] [address] [place] [address] Dr. Geri Pradhan Bottle Set: Set 1 [facility] Comment on above: Performed By: #### Gerry INGRAM, CMP #### [facility] [address] [place] [address] Dr. Geri Pradhan Bottle: Aerobic Normal [facility] Comment on above: Performed By: #### Gerry INGRAM, CMP #### [facility] [address] [place] [address] Dr. Geri Pradhan C. neoformans/gattii Not detected Normal NOT DETECTED [facility] Comment on above: Performed By: #### T JUAN JOSE, CMP #### [facility] [address] [place] [address] Dr. Geri Pradhan Milagros albicans Not detected Normal NOT DETECTED [facility] Comment on above: Performed By: #### T JUAN JOSE, CMP #### [facility] [address] [address] [address] Geri Pradhan Milagros auris Not detected Normal NOT DETECTED [facility] Comment on above: Performed By: #### T JUAN JOSE, CMP #### [facility] [address] [place] [address] Dr. Geri Pradhan Milagros glabrata Not detected Normal NOT DETECTED [facility] Comment on above: Performed By: #### T JUAN JOSE, CMP #### [facility] [address] [place] [address] Dr. Geri Pradhan Milagros Krusei Not detected Normal NOT DETECTED [facility] Comment on above: Performed By: #### T JUAN JOSE, CMP #### [facility] [address] [place] [address] Dr. Geri Pradhan Milagros Parapsilosis Not detected Normal NOT DETECTED [facility] Comment on above: Performed By: #### T JUAN JOSE, CMP #### [facility] [address] [place] [address] Dr. Geri Pradhan Milagros Tropicalis Not detected Normal NOT DETECTED [facility] Comment on above: Performed By: #### T JUAN JOSE, CMP #### [facility] [address] [place] [address] Dr. Geri Pradhan CTX-M Resistant Gene Not Applicable Normal NOT DETECTE D [facility] Comment on above: Performed By: #### T JUAN JOSE, CMP #### [facility] [address] [place] [address] Dr. Geri Pradhan E. Cloacae complex Not detected Normal NOT DETECTED [facility] Comment on above: Performed By: #### T JUAN JOSE, CMP #### [facility] [address] [place] [address] Dr. Geri Pradhan E. faecalis Not detected Normal NOT DETECTED [facility] Comment on above: Performed By: #### T JUAN JOSE, CMP #### [facility] [address] [place] [address] Dr. Geri Pradhan E. faecium Not detected Normal NOT DETECTED [facility] Comment on above: Performed By: #### T JUAN JOSE, CMP #### [facility] [address] [address] [address] Geri Pradhan Enterobacteriaceae Not detected Normal NOT DETECTED [facility] Comment on above: Performed By: #### T JUAN JOSE, CMP #### [facility] [address] [place] [address] Dr. Geri Pradhan Escherichia coli Not detected Normal NOT DETECTED [facility] Comment on above: Performed By: #### T JUAN JOSE, CMP #### [facility] [address] [place] [address] Dr. Geri Pradhan H. influenzae Not detected Normal NOT DETECTED [facility] Comment on above: Performed By: #### T JUAN JOSE, CMP #### [facility] [address] [place] [address] Dr. Geri Pradhan IMP Resistant Gene Not Applicable Normal NOT DETECTED [facility] Comment on above: Performed By: #### T JUAN JOSE, CMP #### [facility] [address] [place] [address] Dr. Geri Pradhan K. oxytoca Not detected Normal NOT DETECTED [facility] Comment on above: Performed By: #### T JUAN JOSE, CMP #### [facility] [address] [place] [address] Dr. Geri Pradhan K. pneumoniae Not detected Normal NOT DETECTED [facility] Comment on above: Performed By: #### T JUAN JOSE, CMP #### [facility] [address] [place] [address] Dr. Geri Pradhan Klebsiella aerogenes Not detected Normal NOT DETECTED [facility] Comment on above: Performed By: #### T JUAN JOSE, CMP #### [facility] [address] [place] [address] Dr. Geri Pradhan KPC Resistant Gene Not Applicable Normal NOT DETECTED [facility] Comment on above: Performed By: #### T JUAN JOSE, CMP #### [facility] [address] [address] [address] Geri Pradhan List. monocytogenes Not detected Normal NOT DETECTED [facility] Comment on above: Performed By: #### T JUAN JOSE, CMP #### [facility] [address] [place] [address] Dr. Geri Pradhan Mcr-1 Resistant Gene Not Applicable Normal NOT DETECTE D [facility] Comment on above: Performed By: #### T JUAN JOSE, CMP #### [facility] [address] [address] [address] Geri Pradhan mecA/C Detected Abnormal NOT DETECTED [facility] Comment on above: Performed By: #### T JUAN JOSE, CMP #### [facility] [address] [place] [address] Dr. Geri Pradhan mecA/C MREJ Not Applicable Normal NOT DETECTED [facility] Comment on above: Performed By: #### Gerry INGRAM, CMP #### [facility] [address] [place] [address] Dr. Geri Pradhan N. meningitidis Not detected Normal NOT DETECTED [facility] Comment on above: Performed By: #### Gerry INGRAM, CMP #### [facility] [address] [place] [address] Dr. Geri Pradhan NDM Resistant Gene Not Applicable Normal NOT DETECTED [facility] Comment on above: Performed By: #### Gerry INGRAM, CMP #### [facility] [address] [place] [address] Dr. Geri Pradhan Oxa-48-like Not Applicable Normal NOT DETECTED [facility] Comment on above: Performed By: #### T JUAN JOSE, CMP #### [facility] [address] [place] [address] Dr. Geri Pradhan Proteus Not detected Normal NOT DETECTED [facility] Comment on above: Performed By: #### T JUAN JOSE, CMP #### [facility] [address] [place] [address] Dr. Geri Pradhan Pseud. aeruginosa Not detected Normal NOT DETECTED [facility] Comment on above: Performed By: #### T JUAN JOSE, CMP #### [facility] [address] [address] [address] Geri Pradhan S. maltophilia Not detected Normal NOT DETECTED [facility] Comment on above: Performed By: #### T JUAN JOSE, CMP #### [facility] [address] [address] [address] Geri Pradhan Salmonella Not detected Normal NOT DETECTED [facility] [place] Comment on above: Performed By: #### T JUAN JOSE, CMP #### [facility] [address] [address] [address] Geri Pradhan Seratia marcescens Not detected Normal NOT DETECTED [facility] Comment on above: Performed By: #### T JUAN JOSE, CMP #### [facility] [address] [place] [address] Dr. Geri Pradhan Site: Right AC Normal [facility] Comment on above: Performed By: #### T JUAN JOSE, CMP #### [facility] [address] [address] [address] Geri Pradhan Stapwilliam. aureus Not detected Normal NOT DETECTED [facility] Comment on above: Performed By: #### T JUAN JOSE, CMP #### [facility] [address] [address] [address] Geri Pradhan Stapwilliam. epidermidis Detected Critically abnormal NOT DETECTED [facility] Comment on above: Performed By: #### T JUAN JOSE, CMP #### [facility] [address] [address] [address] Geri Pradhan Staph. lugdunensis Not detected Normal NOT DETECTED [facility] Comment on above: Performed By: #### T JUAN JOSE, CMP #### [facility] [address] [address] [address] Geri Pradhan Staphylococcus Detected Critically abnormal NOT DETECTED [facility] Comment on above: Performed By: #### T JUAN JOSE, CMP #### [facility] [address] [place] [address] Dr. Geri Pradhan Strep. agalactiae Not detected Normal NOT DETECTED [facility] Comment on above: Performed By: #### T JUAN JOSE, CMP #### [facility] [address] [place] [address] Dr. Geri Pradhan Strep. pneumoniae Not detected Normal NOT DETECTED [facility] Comment on above: Performed By: #### T JUAN JOSE, CMP #### [facility] [address] [address] [address] Geri Pradhan Strep. pyogenes Not detected Normal NOT DETECTED [facility] Comment on above: Performed By: #### T JUAN JOSE, CMP #### [facility] [address] [place] [address] Dr. Geir Pradhan Streptococcus Not detected Normal NOT DETECTED [facility] Comment on above: Performed By: #### T JUAN JOSE, CMP #### [facility] [address] [place] [address] Dr. Geri Pradhan Amrit/B Resist. Gene Not Applicable Normal NOT DETECTED [facility] Comment on above: Performed By: #### Gerry INGRAM, CMP #### [facility] [address] [place] [address] Dr. Geri Pradhan VIM Resistant Gene Not Applicable Normal NOT DETECTED [facility] Comment on above: Performed By: #### Gerry INGRAM, CMP #### [facility] [address] [place] [address] Dr. Geri Pradhan BLOOD GASES [facility] 09-01-2022 02 MODE NASAL CANNULA Normal [facility] Comment on above: Performed By: #### R SPLUS #### [facility] [address] [place] [address] Dr. Geri Pradhan ALLENDionne TEST Positive Normal [facility] Comment on above: Performed By: #### R SPLUS #### [facility] [address] [place] [address] Dr. Geri Pradhan Base excess Calc (Bld) [Moles/Vol] 22.8 mmol/L Critically high -2.0-2.0 [facility] Comment on above: Performed By: #### R SPLUS #### [facility] [address] [place] [address] Dr. Geri Pradhan BIPAP PRESSURE Normal [facility] Comment on above: Performed By: #### R SPLUS #### [facility] [address] [address] [address] Geri Pradhan CPAP [facility] Comment on above: Performed By: #### R SPLUS #### [facility] [address] [address] [address] Geri Pradhan FIO2 [facility] Comment on above: Performed By: #### R SPLUS #### [facility] [address] [address] [address] Geri Pradhan HCO3 (Bld) [Moles/Vol] 47.1 mmol/L Critically high 22.0-26 .0 [facility] Comment on above: Performed By: #### R SPLUS #### [facility] [address] [place] [address] Dr. Geri Pradhan LPM 2.5 [facility] Comment on above: Performed By: #### R SPLUS #### [facility] [address] [address] [address] Geri Pradhan MINUTE VOLUME Normal [facility] Comment on above: Performed By: #### R SPLUS #### [facility] [address] [place] [address] Dr. Geri Pradhan Oxygen (Bld) [Partial pressure] 95.8 mm[Hg] Normal 80.0-100.0 [facility] Comment on above: Performed By: #### R SPLUS #### [facility] [address] [place] [address] Dr. Geri Pradhan Oxygen saturation in Blood 98.0 % Normal 95.0-100.0 [facility] Comment on above: Performed By: #### R SPLUS #### [facility] [address] [address] [address] Geri Pradhan PCO2 71.5 mmHg Critically high 35.0-45.0 [facility] Comment on above: Performed By: #### R SPLUS #### [facility] [address] [address] [address] Geri Pradhan PEEP [facility] Comment on above: Performed By: #### R SPLUS #### [facility] [address] [place] [address] Dr. Geri Pradhan pH (Bld) 7.428 [pH] Normal 7.350-7.450 [facility] Comment on above: Performed By: #### R SPLUS #### [facility] [address] [place] [address] Dr. Geri Pradhan PIP [facility] Comment on above: Performed By: #### R SPLUS #### [facility] [address] [place] [address] Dr. Geri Pradhan PS [facility] Comment on above: Performed By: #### R SPLUS #### [facility] [address] [place] [address] Dr. Geri Pradhan PUNCTURE SITE RR [facility] Comment on above: Performed By: #### R SPLUS #### [facility] [address] [place] [address] Dr. Geri Pradhan [facility] Comment on above: Performed By: #### R SPLUS #### [facility] [address] [place] [address] Dr. Geri Pradhan VENT MODE [facility] Comment on above: Performed By: #### R SPLUS #### [facility] [address] [place] [address] Dr. Geri Pradhan [facility] Comment on above: Performed By: #### R SPLUS #### [facility] [address] [place] [address] Dr. Geri Pradhan BNPon 09-01-2022 Natriuretic peptide B (Bld) [Mass/Vol] 143.0 pg/mL Normal <=900.0 [facility] Comment on above: Performed By: #### R SPLUS #### [facility] [address] [place] [address] Dr. Geri Pradhan CARDIAC BRAYAN ADMITon 023 CK [Catalytic activity/Vol] 21 U/L Critically low 26-192 [facility] Comment on above: Performed By: #### R SPLUS #### [facility] [address] [place] [address] Dr. Geri Pradhan CK.MB [Mass/Vol] 0.78 ng/mL Normal <=3.60 [facility] Comment on above: Performed By: #### R SPLUS #### [facility] [address] [place] [address] Dr. Geri Pradhan HSTROP 6.9 pg/mL Normal 4.0-51.3 [facility] Comment on above: Result Comment: CUT- OFF POINTS HAVE BEEN ESTABLISHED BASED ON THE FOURTH UNIVERSAL DEFINITIONS OF MYOCARDIAL INFARCTION. THE UPPER REFERENCE LIMIT (URL) OF TROPONIN, DEFINED THE 99TH PERCENTILE OF cTnI DISTRIBUTION IN A REFERENCE POPULATION, HAS BEEN CONFIRMED THE DECISION THRESHOLD FOR CT DIAGNOSIS. Performed By: #### R SPLUS #### [facility] [address] [place] [address] Dr. Geri Pradhan VIN 20 ng/mL Normal 9-82 [facility] Comment on above: Performed By: #### R SPLUS #### [facility] [address] [place] [address] Dr. Geri Pradhan CBC AUTO DIFFon 09-01-2022 BASO # 0.0 103/ul Normal 0.0-0.1 [facility] Comment on above: Performed By: #### C BC #### [facility] [address] [place] [address] Dr. Geri Pradhan Basophils/100 WBC (Bld) 0.2 % Normal 0.2-2.0 [facility] Comment on above: Performed By: #### C BC #### [facility] [address] [place] [address] Dr. Geri Pradhan EO # 0.1 103/ul Normal 0.0-0.7 [facility] Comment on above: Performed By: #### C BC #### [facility] [address] [place] [address] Dr. Geri Pradhan Eosinophils/100 WBC (Bld) 1.5 % Normal 0.9-7.0 [facility] Comment on above: Performed By: #### C BC #### [facility] [address] [place] [address] Dr. Geri Pradhan Erythrocyte distribution width (RBC) [Ratio] 12.8 % Normal 11.0-15.0 [facility] Comment on above: Performed By: #### C BC #### [facility] [address] [place] [address] Dr. Geri Pradhan Hematocrit (Bld) [Volume fraction] 41.8 % Normal 36.0-48.0 [facility] Comment on above: Performed By: #### C BC #### [facility] [address] [place] [address] Dr. Geri Pradhan Hemoglobin (Bld) [Mass/Vol] 13.1 g/dL Normal 12.0-16.0 [facility] Comment on above: Performed By: #### C BC #### [facility] [address] [place] [address] Dr. Geri Pradhan IG # 0.05 10e3/ul Critically high 0.00-0.03 [facility] Comment on above: Performed By: #### C BC #### [facility] [address] [place] [address] Dr. Geri Pradhan IG % 0.5 % Normal 0.0-0.5 [facility] Comment on above: Performed By: #### C BC #### [facility] [address] [place] [address] Dr. Geri Pradhan LYMPH # 2.4 103/ul Normal 1.2-3.8 [facility] Comment on above: Performed By: #### C BC #### [facility] [address] [place] [address] Dr. Geri Pradhan Lymphocytes/100 WBC (Bld) 24.9 % Normal 20.5-60.0 [facility] Comment on above: Performed By: #### C BC #### [facility] [address] [place] [address] Dr. Geri Pradhan MANUAL DIFF REQ NO Normal [facility] Comment on above: Performed By: #### C BC #### [facility] [address] [place] [address] Dr. Geri Pradhan MCH (RBC) [Entitic mass] 27.2 pg Normal 26.7-34.0 [facility] Comment on above: Performed By: #### C BC #### [facility] [address] [place] [address] Dr. Geri Pradhan MCHC (RBC) [Mass/Vol] 31.3 g/dL Normal 29.9-35.2 [facility] Comment on above: Performed By: #### C BC #### [facility] [address] [place] [address] Dr. Geri rPadhan MCV (RBC) [Entitic vol] 86.7 fL Normal 81.0-99.0 [facility] Comment on above: Performed By: #### C BC #### [facility] [address] [place] [address] Dr. Geri Pradhan MONO # 0.9 103/ul Critically high 0.3-0.8 [facility] Comment on above: Performed By: #### C BC #### [facility] [address] [place] [address] Dr. Geri Pradhan Monocytes/100 WBC (Bld) 8.9 % Normal 1.7-12.0 [facility] Comment on above: Performed By: #### C BC #### [facility] [address] [place] [address] Dr. Geri Pradhan NEUT # 6.1 103/ul Normal 1.4-6.5 [facility] Comment on above: Performed By: #### C BC #### [facility] [address] [place] [address] Dr. Geri Pradhan Neutrophils/100 WBC (Bld) 64.0 % Normal 43.0-75.0 [facility] Comment on above: Performed By: #### C BC #### [facility] [address] [place] [address] Dr. Geri Pradhan Platelet mean volume (Bld) [Entitic vol] 9.2 fL Critically low 9.5-13.5 [facility] Comment on above: Performed By: #### C BC #### [facility] [address] [place] [address] Dr. Geri Pradhan PLT 349 103/ul Normal 150-450 [facility] Comment on above: Performed By: #### C BC #### [facility] [address] [place] [address] Dr. Geri Pradhan RBC 4.82 106/ul Normal 4.20-5.40 [facility] Comment on above: Performed By: #### C BC #### [facility] [address] [place] [address] Dr. Geri Pradhan WBC 9.5 103/ul Normal 4.0-11.0 [facility] Comment on above: Performed By: #### C BC #### [facility] [address] [place] [address] Dr. Geri Pradhan CULTURE BLOODon 09-01-2022 Microscopic examination of blood, culture Culture Observations: NO GROWTH AT 5 DAYS. Normal [facility] Comment on above: Performed By: #### P OCGLUC #### [facility] [address] [place] [address] Dr. Geri Pradhan CULTURE URINEon 09-01-2022 CULTURE URINE Culture Observations : EDUARDO TO FOLLOW. Isolate 1 Pseudomonas aeruginosa 10,000 cfu/mL of Normal [facility] Comment on above: Performed By: #### P OCGLUC #### [facility] [address] [place] [address] Dr. Geri Pradhan ER URINE PROFILEon 3 Bilirubin Ql (U) Negative Normal NEGATIVE [facility] Comment on above: Performed By: #### P OCGLUC #### [facility] [address] [place] [address] Dr. Geri Pradhan Clarity (U) CLEAR Normal CLEAR [facility] Comment on above: Performed By: #### P OCGLUC #### [facility] [address] [place] [address] Dr. Geri Pradhan Color (U) LT. YELLOW Normal YELLOW [facility] Comment on above: Performed By: #### P OCGLUC #### [facility] [address] [place] [address] Dr. Geri Pradhan ERUAHD A micrscopic examination will be performed if indicated. Normal [facility] Comment on above: Performed By: #### P OCGLUC #### [facility] [address] [address] [address] Geri Pradhan Glucose Ql (U) Negative Normal NEGATIVE [facility] Comment on above: Performed By: #### P OCGLUC #### [facility] [address] [address] [address] Geri Pradhan Hemoglobin Ql (U) TRACE-INTACT Abnormal NEGATIVE [facility] Comment on above: Performed By: #### P OCGLUC #### [facility] [address] [address] [address] Geri Pradhan Ketones Ql (U) Negative Normal NEGATIVE [facility] Comment on above: Performed By: #### P OCGLUC #### [facility] [address] [place] [address] Dr. Geri Pradhan LEUKOCYTES MODERATE Abnormal NEGATIVE [facility] Comment on above: Performed By: #### P OCGLUC #### [facility] [address] [address] [address] Geri Pradhan Nitrite Ql (U) Negative Normal NEGATIVE [facility] Comment on above: Performed By: #### P OCGLUC #### [facility] [address] [place] [address] Dr. Geri Prdahan pH (U) 6.5 [pH] Normal 5-9 [facility] Comment on above: Performed By: #### P OCGLUC #### [facility] [address] [place] [address] Dr. Geri Pradhan SPEC GRAVITY 1.010 Normal 1.005-<=1.02 5 [facility] Comment on above: Performed By: #### P OCGLUC #### [facility] [address] [address] [address] Geri Pradhan UA PROTEIN Negative Normal NEGATIVE/ TRACE [facility] Comment on above: Performed By: #### P OCGLUC #### [facility] [address] [place] [address] Dr. Geri Pradhan UR MICRO IND INDICATED Normal [facility] Comment on above: Performed By: #### P OCGLUC #### [facility] [address] [address] [address] Geri Pradhan Urobilinogen Qn (U) 0.2 {Lelia'U}/dL Normal 0.2 - 1. 0 [facility] Comment on above: Performed By: #### P OCGLUC #### [facility] [address] [address] [address] Geri Pradhan LACTATE/LACTIC ACIDon 2022 Lactate [Moles/Vol] 0.7 mmol/L Normal 0.4-2.0 [facility] Comment on above: Performed By: #### T JUAN JOSE, CMP #### [facility] [address] [address] [address] Geri Pradhan PROF 14(COMP METB)on 023 Albumin [Mass/Vol] 3.3 g/dL Critically low 3.4-5.0 [facility] Comment on above: Performed By: #### P OCGLUC #### [facility] [address] [place] [address] Dr. Geri Pradhan Albumin/Globulin [Mass ratio] 0.7 {ratio} Normal [facility] Comment on above: Performed By: #### P OCGLUC #### [facility] [address] [place] [address] Dr. Geri Pradhan ALP [Catalytic activity/Vol] 81 U/L Normal 46-116 [facility] Comment on above: Performed By: #### P OCGLUC #### [facility] [address] [place] [address] Dr. Geri Pradhan ALT [Catalytic activity/Vol] 19 U/L Normal 14-59 [facility] Comment on above: Performed By: #### P OCGLUC #### [facility] [address] [place] [address] Dr. Geri Pradhan Anion gap [Moles/Vol] 3.1 mmol/L Normal [facility] Comment on above: Performed By: #### P OCGLUC #### [facility] [address] [place] [address] Dr. Geri Pradhan AST [Catalytic activity/Vol] 16 U/L Normal 15-37 [facility] Comment on above: Performed By: #### P OCGLUC #### [facility] [address] [address] [address] Geri Pradhan Bilirubin [Mass/Vol] 0.2 mg/dL Normal 0.2-1.0 [facility] Comment on above: Performed By: #### P OCGLUC #### [facility] [address] [address] [address] Geri Pradhan Calcium [Mass/Vol] 9.8 mg/dL Normal 8.5-10.1 [facility] Comment on above: Performed By: #### P OCGLUC #### [facility] [address] [address] [address] Geri Pradhan Chloride [Moles/Vol] 93 mmol/L Critically low 98-107 [facility] Comment on above: Performed By: #### P OCGLUC #### [facility] [address] [address] [address] Geri Pradhan CO2 [Moles/Vol] 45.3 mmol/L Critically high 21.0-32.0 [facility] Comment on above: Performed By: #### P OCGLUC #### [facility] [address] [place] [address] Dr. Geri Pradhan Creatinine [Mass/Vol] 0.51 mg/dL Critically low 0.55-1.02 [facility] Comment on above: Performed By: #### P OCGLUC #### [facility] [address] [address] [address] Geri Pradhan EGFR-AF MOLDOVAN >60 Normal >=60 [facility] Comment on above: Performed By: #### P OCGLUC #### [facility] [address] [address] [address] Geri Pradhan EGFR-NON AF MOLDOVAN >60 Normal >=60 [facility] Comment on above: Performed By: #### P OCGLUC #### [facility] [address] [place] [address] Dr. Geri Pradhan Globulin (S) [Mass/Vol] 4.8 g/dL Normal [facility] Comment on above: Performed By: #### P OCGLUC #### [facility] [address] [address] [address] Geri Pradhan Glucose [Mass/Vol] 98 mg/dL Normal 74-106 [facility] Comment on above: Performed By: #### P OCGLUC #### [facility] [address] [address] [address] Geri Pradhan Potassium [Moles/Vol] 3.4 mmol/L Critically low 3.5-5.1 [facility] Comment on above: Performed By: #### P OCGLUC #### [facility] [address] [address] [address] Geri Pradhan Protein [Mass/Vol] 8.1 g/dL Normal 6.4-8.2 [facility] Comment on above: Performed By: #### P OCGLUC #### [facility] [address] [address] [address] Geri Pradhan Sodium [Moles/Vol] 138 mmol/L Normal 136-145 [facility] Comment on above: Performed By: #### P OCGLUC #### [facility] [address] [address] [address] Geri Pradhan Urea nitrogen [Mass/Vol] 11.0 mg/dL Normal 7.0-18.0 [facility] Comment on above: Performed By: #### P OCGLUC #### [facility] [address] [address] [address] Geri Pradhan Urea nitrogen/Creatinine [Mass ratio] 21.6 mg/mg Normal [facility] Comment on above: Performed By: #### P OCGLUC #### [facility] [address] [address] [address] Geri Pradhan PROTIMEon 09-01-2022 INR Coag (PPP) [Relative time] 0.96 {INR} Normal [facility] Comment on above: Performed By: #### T JUAN JOSE, CMP #### [facility] [address] [address] [address] Geri Pradhan INR GUIDELINES SEE BELOW Normal [facility] [place] Comment on above: Result Comment: KAROL RED INR: 2.0 - 3.0 CONDITIONS NOT LISTED BELOW 2.5 - 3.5 FOR PROSTHETIC HEART VALVE REPLACEMENT 2.5 - 3.5 RECURRENT THROMBOSIS Performed By: #### T JUAN JOSE, CMP #### [facility] [address] [place] [address] Dr. Geri Pradhan PT Coag (PPP) [Time] 10.2 s Normal 9.0-11.6 [facility] Comment on above: Performed By: #### Gerry INGRAM, CMP #### [facility] [address] [place] [address] Dr. Geri Pradhan PTTon 09-01-2022 aPTT Coag (Bld) [Time] 25.5 s Normal 22.3-36.2 [facility] Comment on above: Performed By: #### Gerry INGRAM CMP #### [facility] [address] [place] [address] Dr. Geri Pradhan URINE MICROSCOPIC ONLYon BACTERIA NONE SEEN Normal NONE SEEN [facility] Comment on above: Performed By: #### P OCGLUC #### [facility] [address] [place] [address] Dr. Geri Pradhan Bacteria identified Cx Nom (U) INDICATED Normal [facility] Comment on above: Performed By: #### P OCGLUC #### [facility] [address] [place] [address] Dr. Geri Pradhan CAST NONE SEEN Normal NONE SEEN [facility] Comment on above: Performed By: #### P OCGLUC #### [facility] [address] [place] [address] Dr. Geri Pradhan Crystals LM Nom (Urine sed) NONE SEEN Normal NONE SEEN [facility] Comment on above: Performed By: #### P OCGLUC #### [facility] [address] [place] [address] Dr. Geri Pradhan Epithelial cells LM Ql (Urine sed) FEW Abnormal NONE SEEN /RARE [facility] Comment on above: Performed By: #### P OCGLUC #### [facility] [address] [place] [address] Dr. Geri Pradhan MUCOUS NONE SEEN Normal NONE SEEN [facility] Comment on above: Performed By: #### P OCGLUC #### [facility] [address] [place] [address] Dr. Geri Pradhan RBC 0-2 Normal 0-2 [facility] Comment on above: Performed By: #### P OCGLUC #### [facility] [address] [place] [address] Dr. Geri Pradhan WBC 10-20 Abnormal NONE SEEN [facility] Comment on above: Performed By: #### P OCGLUC #### [facility] [address] [place] [address] Dr. Geri Pradhan XR CHEST 1 Von [...] by: EAMON ANDREWS Date: 2022-09-01 20:18 Normal [facility] ASPERGILLUS GALACTOMANNAN AN TIGEN DETECTon 05-28-2022 Aspergillus Ag, BAL/Serum 0.07 Index Normal 0.00-0.49 [facility] Comment on above: Result Comment: Perf ormed at: BN Performed By: #### Gerry INGRAM CMP #### [facility] [address] [place] [address] Dr. Geri Pradhan Test Information . Normal [facility] Comment on above: Result Comment: Perf ormed at: TG Performed By: #### T JUAN JOSE CMP #### [facility] [address] [place] [address] Dr. Geri Pradhan ASPERGILLUS AB, QUANTITATIVE DIDon 05-27-2022 Aspergillus flavus Negative Normal Neg:<1:1 [facility] Comment on above: Performed By: #### Gerry INGRAM CMP #### [facility] [address] [place] [address] Dr. Geri Pradhan Aspergillus fumigatus Negative Normal Neg:<1:1 [facility] Comment on above: Performed By: #### T JUAN JOSE, CMP #### [facility] [address] [address] [address] eGri Pradhan Aspergillus niger Negative Normal Neg:<1:1 [facility] Comment on above: Performed By: #### Gerry INGRAM, CMP #### [facility] [address] [address] [address] Geri Pradhan CULTURE SPUTUMon 05-23-2022 CULTURE SPUTUM Culture Observations : NORMAL RESPIRATORY NAVA. Normal [facility] Comment on above: Performed By: #### P OCGLUC #### [facility] [address] [address] [address] Geri Pradhan SPUTUM GRAM STAINon 05-23-19 COMMENTS Normal [facility] Comment on above: Performed By: #### Gerry INGRAM, CMP #### [facility] [address] [address] [address] Geri Pradhan DIPHTHEROIDS [facility] Comment on above: Performed By: #### Gerry INGRAM, CMP #### [facility] [address] [address] [address] Geri Pradhan EPITHELIALS <25 Normal [facility] Comment on above: Performed By: #### Gerry INGRAM CMP #### [facility] [address] [address] [address] Geri Pradhan FUNGAL ELEMENTS Normal [facility] Comment on above: Performed By: #### Gerry INGRAM CMP #### [facility] [address] [address] [address] Geri SY NEG BACILLI Normal [facility] Comment on above: Performed By: #### Gerry INGRAM, CMP #### [facility] [address] [address] [address] Geri SY NEG DIPPLOCOCCI Normal [facility] Comment on above: Performed By: #### Gerry INGRAM, CMP #### [facility] [address] [address] [address] Geri SY POS BACILLI Normal [facility] Comment on above: Performed By: #### Gerry INGRAM CMP #### [facility] [address] [address] [address] Geri Pradhan GRAM POSITIVE COCCI MODERATE Normal [facility] Comment on above: Performed By: #### Gerry INGRAM CMP #### [facility] [address] [address] [address] Geri Pradhan WBC (Bld) [#/Vol] 10*3/uL Normal [facility] Comment on above: Performed By: #### Gerry INGRAM CMP #### [facility] [address] [address] [address] Geri Pradhan BRONCHOSCOPYon 05-09-2022 [facility] Covid-19 PCR (CVDTBH)on 04-14 SARS-CoV-2 (COVID-19) RNA KRUNAL+probe Ql (Unsp spec) Not detected Normal NOT DETECTED [facility] Comment on above: Result Comment: This test is not yet approved or cleared by the [place] FDA. When there are no FDA-approved or cleared tests available, and other criteria are met, FDA can make tests available under an emergency access mechanism called an Emergency Use Authorization (EUA). The EUA for this test is supported by the [place] of Health and Human Service's (HHS's) declaration [...] SARS-CoV-2. Performed By: #### R SPLUS #### [facility] [address] [address] [address] Geri Pradhan Covid-19 PCR (CVDTBH)on 03-14 SARS-CoV-2 (COVID-19) RNA KRUNAL+probe Ql (Unsp spec) Not detected Normal NOT DETECTED [facility] Comment on above: Result Comment: This test is not yet approved or cleared by the [place] FDA. When there are no FDA-approved or cleared tests available, and other criteria are met, FDA can make tests available under an emergency access mechanism called an Emergency Use Authorization (EUA). The EUA for this test is supported by the [employer]iance Special[employer] of Health and Human Service's (HHS's) declaration [...] Performed By: #### Gerry INGRAM, CMP #### [facility] [address] [place] [address] Dr. Geri Pradhan INFLUENZA A AND B [facility] 04-08 [facility] SEE BELOW Normal [facility] Comment on above: Result Comment: Nega tive for Flu A protein angiten. Infection due to Flu A cannot be ruled out. Flu A angiten in the sample may be below the detection limit of the test. Performed By: #### Gerry INGRAM, CMP #### [facility] [address] [place] [address] Dr. [facility] Normal [facility] Comment on above: Result Comment: Nega tive for Flu B protein antigen. Infection due to Flu B cannot be ruled out. Flu B antigen in the sample may be below the detection limit of the test. Performed By: #### T JUAN JOSE, CMP #### [facility] [address] [place] [address] Dr. Geri Pradhan INFLUENZA A AG Negative Normal NEGATIVE SEE COMMENT [facility] Comment on above: Performed By: #### Gerry INGRAM, CMP #### [facility] [address] [place] [address] Dr. Geri Pradhan INFLUENZA B AG Negative Normal NEGATIVE SEE COMMENT [facility] Comment on above: Performed By: #### T JUAN JOSE, CMP #### [facility] [address] [place], [place] [address] Dr. Geri Pradhan INTERNAL CONTROLS Within Normal Limits Normal Wi thin Normal Limits [facility] Comment on above: Performed By: #### Gerry INGRAM CMP #### [facility] [address] [place], [place] [address] CHEST W CONon [...] JULES RAMIREZ Date: 2022-02-17 08:02 Normal [facility] CREATININEon 02-15-2022 Creatinine [Mass/Vol] 0.52 mg/dL Critically low 0.55-1.02 [facility] Comment on above: Performed By: #### R SPLUS #### [facility] [address] [address] [address] Geri Pradhan EGFR-AF MOLDOVAN >60 Normal >=60 [facility] Comment on above: Performed By: #### R SPLUS #### [facility] [address] [address] [address] Geri Pradhan EGFR-NON AF MOLDOVAN >60 Normal >=60 [facility] Comment on above: Performed By: #### R SPLUS #### [facility] [address] [address] [address] Geri rPadhan CULTURE SPUTUMon 02-11-2022 CULTURE SPUTUM Isolate 1 Milagros albicans Light growth of Normal [facility] Comment on above: Performed By: #### S PUTCX #### [facility] [address] [place] [address] Dr. Geri Pradhan SPUTUM GRAM STAINon 02-12-20 COMMENTS Normal [facility] Comment on above: Performed By: #### R SPLUS #### [facility] [address] [address] [address] Geri Pradhan DIPHTHEROIDS Normal [facility] Comment on above: Performed By: #### R SPLUS #### [facility] [address] [address] [address] Geri Pradhan EPITHELIALS <25 Normal [facility] Comment on above: Performed By: #### R SPLUS #### [facility] [address] [address] [address] Geri Pradhan FUNGAL ELEMENTS Normal [facility] Comment on above: Performed By: #### R SPLUS #### [facility] [address] [address] [address] Geri Pradhan GRAM NEG BACILLI Normal [facility] Comment on above: Performed By: #### R SPLUS #### [facility] [address] [place] [address] Dr. Geri SY NEG DIPPLOCOCCI Normal [facility] Comment on above: Performed By: #### R SPLUS #### [facility] [address] [place] [address] Dr. Geri Pradhan GRAM POS BACILLI Normal [facility] Comment on above: Performed By: #### R SPLUS #### [facility] [address], [place] [address] Dr. Geri Pradhan GRAM POSITIVE COCCI MODERATE Normal [facility] Comment on above: Performed By: #### R SPLUS #### [facility] [address] [place], [place] [address] Dr. Geri Pradhan WBC (Bld) [#/Vol] 10*3/uL Normal [facility] Comment on above: Performed By: #### R SPLUS #### [facility] [address] [place], [place] [address] Dr. Geri Pradhan Covid-19 PCR (CVDTBH)on 11-13 SARS-CoV-2 (COVID-19) RNA KRUNAL+probe Ql (Unsp spec) Detected Critically abnormal NOT DETECTED [facility] Comment on above: Result Comment: This test is not yet approved or cleared by the [place] FDA. When there are no FDA-approved or cleared tests available, and other criteria are met, FDA can make tests available under an emergency access mechanism called an Emergency Use Authorization (EUA). The EUA for this test is supported by the Oil Program Compliance Specialist of Health and Human Service's (HHS's) declaration [...] used). Performed By: #### C VDTBH #### [facility] [address] [place], [place] [address] Dr. Geri Pradhan General Surgery Office/Clini c Noteon 03-25-2021 General Surgery Office/Clinic Note Chief Complaint in-office excisional biopsy HPI Staff Presents for in-office excisional biopsy right confucianist and right lower extremity. No change since last evaluation. History of Present Illness here for excision of right confucianist and RLE lesions; no change since recent [...] and draped; anesthetized with 1% lidocaine; right confucianist lesion excised in an elliptical fashion down [...] Cardiac arrest: Mother, Father and Sister. Normal [facility] Comment on above: Result Comment: Elec tronically Signed By: JIM DAVENPORT, Jose Gonzalez.giana\Date and Time Signed: 03/25/21 17:02 EST Ambulatory Clinical Summaryo n 02-12-2021 Ambulatory Clinical Summary {[id number]}CD:[id number] Normal [facility] General Surgery Office/Clini c Noteon 02-12-2021 General Surgery Office/Clinic Note Chief Complaint follow up in-office excisional biopsy HPI Staff 11 day post operative follow up post in-office excisional biopsy right confucianist and right lower extremity. Sutures intact. Denies bleeding or drainage from incision site. History of Present Illness 11 days s/p excisional biopsy changing lesions right confucianist and right lower extremity; doing well, no drainage; confucianist lesion basal cell carcinoma, margins not commented [...] Brother. Cardiac arrest: Mother, Father and Sister. [facility] Comment on above: Result Comment: Elec tronically Signed By: JIM DAVENPORT, Jose Domínguez\Date and Time Signed: 02/12/21 13:16 EDT Pathology Noteon 02-06-2021 Pathology Note [id number] 0CD:127 Normal [facility] Ambulatory Clinical Summaryo n 01-11-2021 Ambulatory Clinical Summary {[id number] [facility] Ambulatory Clinical Summary {[id number]}CD:[id number] Normal [facility] Physician Referralon 021 Physician Referral [id number] 0CD:127 Normal [facility] [id number] 03-02-2018 Protein mass conc NAME : ELAINE GUERRERO D : [id number] : 1960 Gender : FemaleRace : CaucasianORD : [id number] Procedure Date : Mar 02 2018 12:58:22Edit Date : Mar 02 2018 14:15:37 Diagnosis:NORMAL SINUS RHYTHMRIGHT ATRIAL ENLARGEMENTMINIMAL VOLTAGE CRITERIA FOR LVH, MAY BE NORMAL VARIANTBORDERLINE ECGNO PREVIOUS ECGS AVAILABLEConfirmed by CORNELIA ROGERS M.D. ([id number]) on 03/02/2018 2:15:27 PM Ventricular Rate : 86 BPMAtrial Rate : 86 BPMP-R Interval : 178 msQRS Duration : 72 msQ-T Interval : 374 msQTC Calculation(Bezet) : 447 msP Thompson : 88 degreesR Thompson : 78 degreesT Thompson : 79 degrees Test Reason : Location : 49 : [place] Overread By : KEN Maier,MIHIRJAYEdited By : KEN Maier,JEAN-CLAUDEYReferred By : DUGLAS FERNANDEZAcquired by : CELESTE GILLESPIE [facility] Vital Signs Date Time Vital Sign Value Performing Clinician Facility 12-03-2023 09:31-0400 Body height 162.56 cm [facility] 12-03-2023 09:31-0400 Body mass index (BMI) [Ratio] 16 kg/m2 [facility] 12-03-2023 09:31-0400 Body temperature 97.8 [degF] [facility] 12-03-2023 09:31-0400 Body weight 42.18 kg [facility] 12-03-2023 09:31-0400 Diastolic blood pressure 72 mm[Hg] [facility] 12-03-2023 09:31-0400 Heart rate 100 /min [facility] 12-03-2023 09:31-0400 Inhaled oxygen flow rate 2 L/min [facility] 12-03-2023 09:31-0400 Respiratory rate 20 /min [facility] 12-03-2023 09:31-0400 SaO2% (BldA) [Mass fraction] 94 % [facility] 12-03-2023 09:31-0400 Systolic blood pressure 115 mm[Hg] [facility] 11-17-2023 14:50-0400 Body height 162.6 cm [facility] 1 Work Phone: [facility] 11-17-2023 14:50-0400 Body mass index (BMI) [Ratio] 16.01 kg/m2 [facility] 1 Work Phone: [facility] 11-17-2023 14:50-0400 Body temperature 97.2 [degF] [facility] Work Phone: [facility] 11-17-2023 14:50-0400 Body weight 42.3 kg [facility] 1 Work Phone: [facility] 11-17-2023 14:50-0400 Diastolic blood pressure 64 mm[Hg] [facility] 1 Work Phone: [facility] 11-17-2023 14:50-0400 Heart rate 118 /min [facility] 1 Work Phone: [facility] 11-17-2023 14:50-0400 Respiratory rate 16 /min [facility] 1 Work Phone: [facility] 11-17-2023 14:50-0400 SaO2% (BldA) [Mass fraction] 95 % [facility] 1 Work Phone: [facility] Comment on above: 2l 11-17-2023 14:50-0400 Systolic blood pressure 121 mm[Hg] [facility] 1 Work Phone: [facility] 09-29-2023 13:29-0400 Body height 162.56 cm [facility] 09-29-2023 13:29-0400 Body mass index (BMI) [Ratio] 16.1 kg/m2 [facility] 09-29-2023 13:29-0400 Body temperature 96.2 [degF] [facility] 09-29-2023 13:29-0400 Body weight 42.63 kg [facility] 09-29-2023 13:29-0400 Diastolic blood pressure 74 mm[Hg] [facility] 09-29-2023 13:29-0400 Heart rate 92 /min [facility] 09-29-2023 13:29-0400 Respiratory rate 20 /min [facility] 09-29-2023 13:29-0400 SaO2% (BldA) [Mass fraction] 91 % [facility] 09-29-2023 13:29-0400 Systolic blood pressure 134 mm[Hg] [facility] 09-16-2023 11:30-0400 Diastolic blood pressure 69 mm[Hg] Khushboo Mcintyre MD, MD Work Phone: [facility] 09-16-2023 11:30-0400 Heart rate 102 /min Khushboo Mcintyre MD, MD Work Phone: [facility] 09-16-2023 11:30-0400 Respiratory rate 16 /min Khushboo Mcintyre MD, MD Work Phone: [facility] 09-16-2023 11:30-0400 SaO2% (BldA) [Mass fraction] 97 % Khushboo Mcintyre MD, MD Work Phone: [facility] 09-16-2023 11:30-0400 Systolic blood pressure 146 mm[Hg] Khushboo Mcintyre MD, MD Work Phone: [facility] 09-16-2023 09:02-0400 Body temperature 97.5 [degF] Khushboo Mcintyre MD, MD Work Phone: [facility] 05-17-2023 12:14-0500 Heart rate 120 /min [facility] 05-17-2023 12:14-0500 Respiratory rate 22 /min [facility] 05-17-2023 11:04-0500 Diastolic blood pressure 76 mm[Hg] [facility] 05-17-2023 11:04-0500 Inhaled oxygen flow rate 2 L/min [facility] 05-17-2023 11:04-0500 SaO2% (BldA) [Mass fraction] 97 % [facility] 05-17-2023 11:04-0500 Systolic blood pressure 117 mm[Hg] [facility] 05-17-2023 07:32-0500 Body temperature 97.4 [degF] [facility] 05-17-2023 03:19-0500 Body weight 39.2 kg [facility] 05-14-2023 16:31-0500 Body height 162.56 cm [facility] 05-14-2023 01:40-0500 Diastolic blood pressure 57 mm[Hg] [facility] 05-14-2023 01:40-0500 Heart rate 119 /min [facility] 05-14-2023 01:40-0500 Inhaled oxygen flow rate 2 L/min [facility] 05-14-2023 01:40-0500 Respiratory rate 22 /min [facility] 05-14-2023 01:40-0500 SaO2% (BldA) [Mass fraction] 91 % [facility] 05-14-2023 01:40-0500 Systolic blood pressure 119 mm[Hg] [facility] 05-13-2023 16:49-0500 Body height 162.56 cm [facility] 05-13-2023 16:49-0500 Body temperature 97.9 [degF] [facility] 05-13-2023 16:49-0500 Body weight 40.36 kg [facility] 11-27-2022 10:34-0400 Body temperature 96.01 [degF] Abdi Israel MD Work Phone: [facility] 11-27-2022 10:34-0400 Body weight 45.18 kg Abdi Israel MD Work Phone: [facility] 11-27-2022 10:34-0400 Diastolic blood pressure 82 mm[Hg] Abdi Israel MD Work Phone: [facility] 11-27-2022 10:34-0400 Heart rate 110 /min Abdi Israel MD Work Phone: [facility] 11-27-2022 10:34-0400 Respiratory rate 20 /min Abdi Israel MD Work Phone: [facility] 11-27-2022 10:34-0400 SaO2% (BldA) [Mass fraction] 89 % Abdi Israel MD Work Phone: [facility] 11-27-2022 10:34-0400 Systolic blood pressure 132 mm[Hg] Abdi Israel MD Work Phone: [facility] 06-26-2022 15:00-0400 Body height 162.56 cm Jose Conde Other [employer] Other 06-26-2022 15:00-0400 Body mass index (BMI) [Ratio] 18.02 kg/m2 Jose Conde Other [employer] Other 06-26-2022 15:00-0400 Body temperature 97.2 [degF] Jose Conde Other [employer] Other 06-26-2022 15:00-0400 Body weight 47.63 kg Jose Conde Other [employer] Other 06-26-2022 15:00-0400 Diastolic blood pressure 80 mm[Hg] Jose Conde Other [employer] Other 06-26-2022 15:00-0400 Systolic blood pressure 128 mm[Hg] Jose Conde Other [employer] Other 06-02-2022 14:09-0500 Body temperature 97.7 [degF] Abdi Israel MD Work Phone: [facility] 06-02-2022 14:09-0500 Body weight 49.35 kg Abdi Israel MD Work Phone: [facility] 06-02-2022 14:09-0500 Diastolic blood pressure 78 mm[Hg] Abdi Israel MD Work Phone: [facility] 06-02-2022 14:09-0500 Heart rate 116 /min Abdi Israel MD Work Phone: [facility] 06-02-2022 14:09-0500 Respiratory rate 18 /min Abdi Israel MD Work Phone: [facility] 06-02-2022 14:09-0500 SaO2% (BldA) [Mass fraction] 89 % Abdi Israel MD Work Phone: [facility] 06-02-2022 14:09-0500 Systolic blood pressure 125 mm[Hg] Abdi Israel MD Work Phone: [facility] 05-22-2022 15:15-0500 Body height 162.56 cm Jose Elton Other [employer] Other 05-22-2022 15:15-0500 Body mass index (BMI) [Ratio] 18.02 kg/m2 Jose Elton Other [employer] Other 05-22-2022 15:15-0500 Body temperature 98.2 [degF] Jose Conde Other [employer] Other 05-22-2022 15:15-0500 Body weight 47.63 kg Jose Conde Other [employer] Other 05-22-2022 15:15-0500 Diastolic blood pressure 78 mm[Hg] Jose Conde Other [employer] Other 05-22-2022 15:15-0500 Systolic blood pressure 130 mm[Hg] Jose Conde Other [employer] Other 05-09-2022 10:30-0500 Diastolic blood pressure 80 mm[Hg] Yasmin Waggoner MD Work Phone: [facility] 05-09-2022 10:30-0500 Heart rate 99 /min Yasmin Waggoner MD Work Phone: [facility] 05-09-2022 10:30-0500 Respiratory rate 16 /min Yasmin Waggoner MD Work Phone: [facility] 05-09-2022 10:30-0500 SaO2% (BldA) [Mass fraction] 97 % Yasmin Waggoner MD Work Phone: [facility] 05-09-2022 10:30-0500 Systolic blood pressure 134 mm[Hg] Yasmin Waggoner MD Work Phone: [facility] 05-09-2022 10:02-0500 Body temperature 98.2 [degF] Yasmin Waggoner MD Work Phone: [facility] 05-09-2022 07:03-0500 Body height 162.6 cm Yasmin Waggoner MD Work Phone: [facility] 05-09-2022 07:03-0500 Body weight 47.63 kg Yasmin Waggoner MD Work Phone: [facility] 03-14-2022 11:22-0500 Body temperature 97.81 [degF] Abdi Israel MD Work Phone: [facility] 03-14-2022 11:22-0500 Body weight 49.9 kg Abdi Israel MD Work Phone: [facility] 03-14-2022 11:22-0500 Heart rate 101 /min Abdi Israel MD Work Phone: [facility] 03-14-2022 11:22-0500 Respiratory rate 16 /min Abdi Israel MD Work Phone: [facility] 03-14-2022 11:22-0500 SaO2% (BldA) [Mass fraction] 96 % Abdi Israel MD Work Phone: [facility] 06-06-2021 10:01-0500 Body temperature 97.7 [degF] Abdi Israel MD Work Phone: [facility] 06-06-2021 10:01-0500 Body weight 51.71 kg Abdi Israel MD Work Phone: [facility] 06-06-2021 10:01-0500 Diastolic blood pressure 67 mm[Hg] Abdi Israel MD Work Phone: [facility] 06-06-2021 10:01-0500 Heart rate 97 /min Abdi Israel MD Work Phone: [facility] 06-06-2021 10:01-0500 Respiratory rate 20 /min Abdi Israel MD Work Phone: [facility] 06-06-2021 10:01-0500 SaO2% (BldA) [Mass fraction] 93 % Abdi Israel MD Work Phone: [facility] 06-06-2021 10:01-0500 Systolic blood pressure 120 mm[Hg] Abdi Israel MD Work Phone: [facility] Encounters Encounter Date Encounter Type Care Provider Facility Start: 12-03-2023 End: 12-03-2023 ambulatory [facility] Work Phone: Start: 12-03-2023 End: 12-03-2023 Patient encounter procedure [facility] Work Phone: Start: 11-19-2023 Telephone encounter Teo Craft MD Work Phone: [facility] [place] Comment on above: Patient Update Start: 11-18-2023 End: 11-18-2023 ambulatory [facility] Facility:[facility] Start: 11-17-2023 End: 11-17-2023 ambulatory [facility] Facility:[facility] Start: 11-17-2023 Encounter for other preprocedural examination [facility] Start: 11-17-2023 End: 11-17-2023 Admission to establishment [place] [id number] Work Phone: Pre Anesthesia Start: 11-17-2023 End: 11-17-2023 Anesthesia consultation [place] [id number] Work Phone: Pre Anesthesia Comment on above: Preoperative examina tion (Primary Dx); 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); Non-small cell cancer of left lung (HCC); Chronic respiratory failure with hypoxia (HCC); COPD, severe (HCC); Supplemental oxygen dependent; Former smoker Start: 11-17-2023 End: 11-17-2023 Preprocedural examination done [place] [id number] Work Phone: [facility] Work Phone: Start: 11-16-2023 End: 12-09-2023 Telephone encounter Abdi Israel MD Work Phone: Radiation Oncology Comment on above: Results Start: 10-27-2023 End: 10-27-2023 ambulatory ABDI ISRAEL Facility:[facility] Start: 10-27-2023 End: 10-27-2023 Patient encounter procedure Teo Craft MD Work Phone: Otolaryngology Comment on above: Lymphadenopathy (Marysol rowan Dx); Non-small cell cancer of left lung (HCC); 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) Start: 09-29-2023 End: 09-29-2023 ambulatory [facility] Work Phone: Start: 09-29-2023 End: 09-29-2023 Patient encounter procedure [facility] Work Phone: Start: 09-21-2023 Telephone encounter Abdi Israel MD Work Phone: Cancer Appts Comment on above: Appointment Confirma tion Start: 09-16-2023 ambulatory [facility] Facility: [facility] Start: 09-16-2023 End: 09-16-2023 Subsequent hospital visit by physician Khushboo Mcintyre MD Work Phone: [phone] Comment on above: Malignant neoplasm o f unspecified part of unspecified bronchus or lung (HCC) [C34.90] Start: 09-14-2023 End: 09-14-2023 ambulatory [facility] Facility:[facility] Start: 09-09-2023 Orders Only Osito Galicia MD Work Phone: [facility] Comment on above: Neoplasm (Primary Dx ) Start: 09-08-2023 Telephone encounter Abdi Israel MD Work Phone: [facility] Comment on above: Cervical lymph node bx Biopsy Request Start: 09-01-2023 End: 09-01-2023 ambulatory ABDI ISRAEL Facility:[facility] Start: 08-17-2023 End: 08-17-2023 ambulatory CARLA MONTAGUE Not Available Start: 08-14-2023 Telephone encounter Abdi Israel MD Work Phone: Radiation Oncology Comment on above: Patient Update Start: 07-14-2023 End: 07-14-2023 ambulatory ANA DRIVER Not Available Start: 05-25-2023 End: 05-25-2023 ambulatory ADITHYA KENYON Facility:[facility] Start: 05-20-2023 Telephone encounter Abdi Israel MD Work Phone: Radiation Oncology Comment on above: Patient Update; Futu re Appointment Start: 05-14-2023 End: 05-17-2023 Evaluation and management of inpatient Ally Warner Facility:[facility] Start: 05-14-2023 Non-patient / Non-visit [facility] Med OutPt Work Phone: Start: 04-09-2023 [...] 06-26-2022 End: 06-26-2022 ambulatory Jose Conde Other [employer] Other Start: 06-26-2022 Office outpatient vi sit 25 minutes Jose Conde [facility] Start: 06-10-2022 End: 06-10-2022 ambulatory Jose Conde Other [employer] Other Start: 06-10-2022 Telephone encounter Jose Conde [facility] Start: 06-02-2022 End: 06-02-2022 Patient encounter procedure Abdi Israel MD Work Phone: Radiation Oncology Comment on above: Non-small cell cance r of left lung (HCC) (Primary Dx) Start: 05-23-2022 End: 05-23-[address] JOSE CONDE Facility:[facility] Start: 05-22-2022 End: 05-23-[address] JOSE CONDE [facility] [employer] Other Start: 05-22-2022 Office outpatient ne w 45 minutes Jose Conde [facility] Infectious Disease Start: 05-14-2022 Telephone encounter Abdi Israel MD Work Phone: Radiation Oncology Comment on above: Appointment Start: 05-09-2022 End: 05-09-2022 Subsequent hospital visit by physician Yasmin Waggoner MD Work Phone: Admitting Comment on above: Bronchiolar disease [J98.09] Start: 05-08-2022 Encounter for preprocedural laboratory examination DR DOCTOR DAS [facility] Start: 05-06-2022 End: 05-06-[address] [...] with patient Vitor Kaur MD Work Phone: [facility] Start: 04-24-2022 Telephone encounter [address]ina Hassan CT Pulmonary Medicine Comment on above: Appointment (PreOp Heath carranza) Start: 04-23-2022 Orders Only Alicja Reece APRN.AIR BOX TESTER Work Phone: Admitting Comment on above: Preoperative examina tion (Primary Dx) Appointment Start: 04-23-2022 Preprocedural examin ation done Alicja Reece APRN.AIR BOX TESTER Work Phone: Admitting Start: 04-22-2022 ambulatory Vitor [...] of lung Start: 03-02-2018 Patient encounter procedure [facility] Start: 03-24-2017 Ambulatory JAYE HOUGH Facil [id number] [...] Author Start: 11-16-2026 Diabetes Screening Diabetes Screening [facility] Start: 04-24-2025 DIABETES SCREEN DIABETES SCREEN [facility] Start: 04-24-2025 Diabetes Screening Diabetes Screening [facility] Start: 05-23-2024 End: 05-23-2024 Patient encounter procedure 05/23/2024 11:00 AM EST Office Visit Radiation Oncology [address] [place] [address] Abdi Israel MD [address] [place] [address] Followup Radiation Oncology Comment on above: Followup Start: 05-18-2024 End: 05-18-2024 Patient encounter procedure 05/18/2024 10:15 AM EST Appointment Radiology [facility] [address] [place] [address] CT CHE[address] [facility]iology Pet CT Comment on above: CT CHEST Start: 12-21-2023 End: 12-21-2023 ambulatory 12/21/2023 1:[address] [facility] Otolaryngology [address] [address] Teo Craft MD [address] [place] [address] post op Otolaryngology Comment on above: post op Start: 12-18-2023 End: 12-18-2023 Patient encounter procedure 12/18/2023 3:00 PM EDT Office Visit Radiation Oncology [address] [place] [address] Abdi Israel MD [address] [place] [address] followup Radiation Oncology Comment on above: followup Start: 12-15-2023 End: 12-15-2023 Patient encounter procedure 12/15/2023 2:15 PM EDT Appointment Radiology Pet CT [address] [place] [address] CT [address] [facility] [address] Comment on above: CT chest Start: 12-15-2023 End: 12-15-2023 Patient encounter procedure 12/15/2023 12:45 PM EDT Appointment Radiology Pet CT [address] [place] [address] [place] [address] Comment on above: PET Start: 12-13-2023 Influenza vaccination Influenza Vaccine (#1) [facility] Start: 11-18-2023 End: 11-18-2023 Admission to same day surgery center 11/18/2023 4:10 PM EDT - 11/18/2023 6:42 PM EDT Surgery Admitting [address] [place] [address] Teo Craft MD [address] [place] [address] BIOPSY OR EXCISION LYMPH NODE(S) OPEN, DEEP CERVICAL Admitting Comment on above: BIOPSY OR EXCISION LYMPH NODE(S) OPEN, D EEP CERVICAL Start: 11-18-2023 End: 11-18-2023 Bx/exc lymph node open deep cervical node BIOPSY OR EXCISION LYMPH NODE(S) OPEN, DEEP CERVICAL Non-small cell cancer of left lung (HCC) Lymphadenopathy 11/18/2023 4:10 PM EDT [facility] Start: 11-18-2023 Subsequent hospital visit by physician 11/18/2023 4:10 PM EDT Hospital Encounter Admitting [address] [place] [address] Teo Craft MD [address] [place] [address] Non-small cell cancer of left lung (HCC) [C34.92] Admitting Comment on above: Non-small cell cancer of left lung (HCC) [C34.92] Start: 10-27-2023 End: 10-27-2023 Patient encounter procedure 10/27/2023 11:00 AM EDT Office Visit Otolaryngology [address] [address] Teo Craft MD [address] [place] [address] excisional biopsy cervical lymph node; needle biopsy was negative Otolaryngology Comment on above: excisional biopsy cervical lymph node; n eedle biopsy was negative Start: 09-16-2023 End: 09-16-2023 Admission to same day surgery center 09/16/2023 10:00 AM EDT - 09/16/2023 11:00 AM EDT Surgery Angio [address] [place] [address] [place], [address] [facility] [address] [address] BIOPSY OR EXCISION LYMPH NODES(S) NEEDLE SUPERFICIAL [...] EDT Hospital Encounter Angio [address] [place] [address] [place] [address] [facility] [address] [address] Malignant neoplasm of unspecified part of unspecified bronchus or lung (HCC) [C34.90] Angio Comment on above: Malignant neoplasm of unspecified part o f unspecified bronchus or lung (HCC) [C34.90] Start: 09-09-2023 End: 12-09-2023 CBC panel - Blood by Automated count COMPLETE BLOOD COUNT Lab Routine Neoplasm Expected: 09/09/2023, Expires: 12/09/2023 [facility] Work Phone: Comment on above: Expected: 09/09/2023, Expires: Start: 09-01-2023 End: 09-01-2023 Patient encounter procedure 09/01/2023 12:45 PM EDT Appointment Radiology Pet CT [address] [place] [address] [place] [address] Comment on above: PET Start: 05-17-2023 [facility] Start: 05-14-2023 Administration of prophylactic treatment [facility] Start: 05-14-2023 End: 05-14-2023 [facility] Start: 05-14-2023 Hospital admission [facility] Start: 05-14-2023 Microbial culture of sputum [facility] Start: 05-13-2023 CT Chest [facility] Start: 05-13-2023 End: 07-13-2023 CREATININE BLD CREATININE BLD Lab Routine Neoplasm of lung Expected: 05/13/2023 (Approximate), Expires: 07/13/2023 [facility] Work Phone: Comment on above: Expected: 05/13/2023 (Approximate), Expi res: 07/13/2023 Start: 05-13-2023 End: 12-27-2023 CT CHEST W IVCON CT CHEST W IVCON Radiology Routine Neoplasm of lung Expected: 05/13/2023 (Approximate), Expires: 12/27/2023 [facility] Work Phone: Comment on above: Expected: 05/13/2023 (Approximate), Expi res: 12/27/2023 Start: 04-13-2023 Behavioral Health Screening Behavioral Health Screening [facility] Start: 04-13-2023 Depression Assessment Depression Assessment [facility] Start: 12-12-2022 Covid-19 Vaccine ( season) Covid-19 Vaccine () [facility] Start: 12-12-2022 Influenza vaccination [facility] Start: 06-06-2022 Adult depression screening assessment DEPRESSION SCREENING [facility] Start: 06-06-2022 End: 06-06-2022 CREATININE BLD CREATININE BLD Lab Routine Non-small cell cancer of left lung (HCC) Expected: 06/06/2022, Expires: 06/06/2022 [facility] Work Phone: Comment on above: Expected: 06/06/2022, Expires: Start: 06-06-2022 End: 07-06-2022 Ct thorax w/contrast material CT CHEST W IVCON Radiology Routine Non-small cell cancer of left lung (HCC) Neoplasm of lung Expected: 06/06/2022, Expires: 07/06/2022 [facility] Work Phone: Comment on above: Expected: 06/06/2022, Expires: 3 Start: 04-24-2022 End: 06-24-2022 SARS-CoV-2 (COVID-19) RNA [Presence] in Respiratory specimen by KRUNAL with probe detection INTERMEDIATE RAPID COVID Microbiology Routine Preoperative examination Expected: 04/24/2022, Expires: 06/24/2022 [facility] Work Phone: Comment on above: Expected: 04/24/2022, Expires: 3 Start: 04-22-2022 End: 06-22-2022 Basic metabolic 2000 panel - Serum or Plasma BASIC METABOLIC PNL Lab STAT Lung mass Expected: 04/22/2022, Expires: 06/22/2022 [facility] Work Phone: Comment on above: Expected: 04/22/2022, Expires: 3 Start: 04-22-2022 End: 06-22-2022 CBC W Auto Differential panel - Blood CBC + DIFF Lab STAT Lung mass Expected: 04/22/2022, Expires: 06/22/2022 [facility] Work Phone: Comment on above: Expected: 04/22/2022, Expires: 3 Start: 04-13-2022 DEPRESSION ASSESSMENT DEPRESSION ASSESSMENT [facility] Start: 12-12-2021 Influenza vaccination INFLUENZA (#1) [facility] Start: 2021 RSV Vaccine (1 - 1-dose 60+ series) RSV Vaccine (1 - 1-dose 60+ series) [facility] Start: 04-13-2021 DEPRESSION ASSESSMENT DEPRESSION ASSESSMENT [facility] Start: 03-02-2021 DIABETES SCREEN DIABETES SCREEN [facility] Start: 08-26-2011 SHINGRIX VACCINE (1 of 2) SHINGRIX VACCINE (1 of 2) [facility] Start: 2006 COLOGUARD (FIT-DNA) COLOGUARD (FIT-DNA) [facility] Start: 2006 Colonoscopy COLONOSCOPY [facility] Start: 2006 COLORECTAL CANCER SCREENING COLORECTAL CANCER SCREENING [facility] Start: [address] COLONOGRAPHY [facility] Start: 2006 FECAL OCCULT BLOOD FECAL OCCULT BLOOD [facility] Start: 2006 Lipid panel Lipid Screening [facility] Start: 2006 LIPID SCREEN LIPID SCREEN [facility] Start: 2006 Screening for malignant neoplasm of colon [facility] Start: 2006 SIGMOIDOSCOPY SIGMOIDOSCOPY [facility] Start: 2001 Mammography MAMMOGRAM [facility] Start: 2001 Screening for malignant neoplasm of breast Mammogram Screening [facility] Start: 08-26-1991 HPV TESTING HPV TESTING [facility] Start: 08-26-1991 Screening for malignant neoplasm of cervix HPV Testing [facility] Start: 08-26-1991 Zoledronic acid therapy ALPHA-1 ANTITRYPSIN DEFICIENCY SCREENING [facility] Start: 1982 PAP TESTING PAP TESTING [facility] Start: 1982 Screening for malignant neoplasm of cervix [facility] Start: 1980 Urine microalbumin profile [facility] Start: 08-26-1979 ANNUAL PCP TEAM CHRONIC DISEASE VISIT ANNUAL PCP TEAM CHRONIC DISEASE VISIT [facility] Start: 08-26-1979 Anxiety Screening Anxiety Screening [facility] Start: 08-26-1979 Depression Screening Depression Screening [facility] Start: 08-26-1979 HEPATITIS C SCREENING HEPATITIS C SCREENING [facility] Start: 08-26-1979 Hepatitis C screening Hepatitis C Screening [facility] Start: 08-26-1979 HIV SCREENING HIV SCREENING [facility] Start: 08-26-1979 HIV screening HIV Screening [facility] Start: 08-26-1979 SPIROMETRY SPIROMETRY [facility] Start: 08-26-1967 PNEUMOCOCCAL (1 - PCV) PNEUMOCOCCAL (1 - PCV) [facility] Start: 08-26-1967 Pneumococcal vaccination Pneumococcal Vaccine (1 of 2 - PCV) [facility] Start: 1966 COVID-19 VACCINE (1) COVID-19 VACCINE (1) [facility] Start: 02-25-1962 COVID-19 VACCINE (#1) COVID-19 VACCINE (#1) [facility] Bx/exc lymph node op en superficial BIOPSY/REMOVAL, LYMPH NODE(S) Procedures ALEKS Non-small cell cancer of left lung (HCC) 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) Ordered: 09/21/2023 [facility] Work Phone: Comment on above: Ordered: 09/21/2023 End: 12-26-2024 CT Chest W contrast IV CT CHEST W IVCON Radiology Routine Malignant neoplasm of unspecified part of unspecified bronchus or lung (HCC) 1 Occurrences starting 11/27/2023 until 12/26/2024 [facility] Comment on above: 1 Occurrences starting 11/27/2023 until 12/26/2024 End: 05-22-2023 Ct thorax w/o contrast material CT CHEST WO IVCON Radiology Routine Lung mass 1 Occurrences starting 04/22/2022 until 05/22/2023 [facility] Work Phone: Comment on above: 1 Occurrences starting 04/22/2022 until 05/22/2023 CYTOLOGY NON-TANK PROCESSOR [facility] Work Phone: Comment on above: Release Upon Ordering for 1 Occurrences starting 05/09/2022, 1 completed End: 04-22-2023 ECG COMPLETE ECG COMPLETE ECG STAT Lung mass 1 Occurrences starting 04/22/2022 until 04/22/2023 [facility] Work Phone: Comment on above: 1 Occurrences starting 04/22/2022 until 04/22/2023 Patient Education Chronic Obstru ctive Pulmonary Disease (COPD) (DC) Levofloxacin (Systemic) Pneumonia, Adult (DC) [facility] Work Phone: Patient referral [facility] Work Phone: End: 03-22-[address] attenuation skull base mid-thigh NM PET/CT SKULL-THIGH INITIAL Radiology Routine Neoplasm of lung 1 Occurrences starting 02/21/2022 until 03/22/2023 [facility] Work Phone: Comment on above: 1 Occurrences starting 02/21/2022 until 03/22/2023 End: 09-15-2024 PET+CT Guidance for localization of tumor of Skull base to mid-thigh-- W 18F-FDG IV NM PET/CT SKULL-THIGH SUBSEQUENT Radiology Routine Malignant neoplasm of unspecified part of unspecified bronchus or lung (HCC) 1 Occurrences starting 08/17/2023 until 09/15/2024 [facility] Work Phone: Comment on above: 1 Occurrences starting 08/17/2023 until 09/15/2024 End: 12-26-2024 PET+CT Guidance for localization of tumor of Skull base to mid-thigh-- W 18F-FDG IV NM PET/CT SKULL-THIGH SUBSEQUENT Radiology Routine Malignant neoplasm of unspecified part of unspecified bronchus or lung (HCC) 1 Occurrences starting 11/27/2023 until 12/26/2024 [facility] Work Phone: Comment on above: 1 Occurrences starting 11/27/2023 until 12/26/2024 SARS-CoV-2 (COVID-19 ) RNA [Presence] in Respiratory specimen by KRUNAL with probe detection SELF CHECK COVID Microbiology Routine Lung mass Ordered: 04/22/2022 [facility] Work Phone: Comment on above: Ordered: 04/22/2022 SURGICAL PATHOLOGY [facility] Work Phone: Comment on above: Release Upon Ordering for 1 Occurrences starting 05/09/2022, 1 completed End: 09-16-2023 SURGICAL PATHOLOGY [facility] Work Phone: Comment on above: ONCE for 1 Occurrences starting 09/16/19 24 until 09/16/2023, 1 completed [facility] Immunizations Immunization Date Immunization Notes Care Provider Roma ricks 02-27-2023 influenza virus vacc ine, unspecified formulation Pac 1 Work Phone: [facility] 03-04-2022 influenza, injectabl e, quadrivalent, preservative free Vitor Kaur MD Work Phone: [facility] 03-04-2022 influenza virus vacc ine, unspecified formulation Abdi Israel MD Work Phone: [facility] 03-19-2021 influenza, injectabl e, quadrivalent, preservative free Vitor Kaur MD Work Phone: [facility] 02-22-2021 influenza virus vacc ine, unspecified formulation Vitor Kaur MD Work Phone: [facility] 03-02-2020 Influenza, injectabl e, Madin Sparks Canine Kidney, preservative free, quadrivalent Vitor Kaur MD Work Phone: [facility] 02-02-2019 Influenza, injectabl e, Madin Bushra Canine Kidney, preservative free, quadrivalent Vitor Kaur MD Work Phone: [facility] 03-02-2018 influenza, injectabl e, quadrivalent, contains preservative Abdi Israel MD Work Phone: [facility] Payers Date Payer Category Payer Self-pay [id number] 2018 Medicaid [facility] [employer] [id number] 2018-Present [phone] [address] [place] [address] Medicaid [id number] 2018 Medicaid [id number] 1961 Unknown [id number] 1961 Unknown [id number] 1961 Unknown [id number] [id number] 1961 Unknown [id number] [id number] 1961 Unknown [id number] [id number] 1961 Unknown [id number] [id number] 1961 Unknown [id number] [id number] 1961 Unknown [id number] [id number] 1961 Unknown [id number] [id number] 1961 Unknown [id number] [id number] 1961 Unknown [id number] [id number] 1961 Unknown [id number] [id number] 1959 Self-pay [id number] 1959 Unknown [id number] 1959 Unknown [id number] [id number] Unknown [id number] Social History Date Type Detail Facility Start: 03-02-2018 End: 03-14-2022 Tobacco smoking status NHIS Ex-smoker [facility] Start: 04-13-1977 End: 04-13-2012 History of tobacco use Current smoker [facility] Start: 03-02-2018 End: 11-27-2022 Cigarettes smoked current (pack per day) - Reported 1.5 [facility] Start: 03-02-2018 End: 03-14-2022 Tobacco use and exposure Smokeless tobacco non-user [facility] Start: 06-06-2021 End: 10-27-2023 Alcohol intake Current drinker of alcohol (finding) [facility] Start: 1960 Sex Assigned At Not on file [facility] Start: 05-07-2021 End: 03-14-2022 Exposure to SARS-CoV-2 (event) Not sure [facility] Start: 04-13-1977 End: 04-13-2012 History of tobacco use Cigarette Smoker [facility] Work Phone: Start: 03-14-2022 End: 11-27-2022 Sex Assigned At [facility] Adult Depression Screening Assessment 0 [facility] Start: 1960 Sex Assigned At Female F [facility] Clinical Notes 05-14-2011 to 12-07-2023 Teo Craft MD - 12/07/2023 12:20 AM EDTTelephone Encounter - Zamudio Sec, Rodney - 11/30/2023 8:22 AM EDTTelephone Encounter - Robb Lowe, [facility] - 11/30/2023 8:22 AM EDT Note Date & Type Note Facility 12-07-2023 Note HNO ID: [id number] Author: TEO CRAFT MD Service: ? Author Type: Physician Type: Progress Notes Filed: 12/07/2023 00:32 Note Text: [place] [facility] Consult This consult was requested by [...] mobility normal Neck Ultrasound: 12/07/2023 Ultrasound Machine: [employer] Transducer: Linear 11 MHz Regions examined: cervical lymph nodes Sagittal and transverse views were obtained. Color and power Doppler were applied when indicated. Left neck: For surgical planning I evaluated the left cervical lymph nodes with the ultrasound. Identified 2 separate lymph nodes we (more content not included)... [facility] 12-07-2023 History of Presen t illness [...] mobility normal Neck Ultrasound: 12/07/2023 Ultrasound Machine: [employer] Transducer: Linear 11 MHz Regions examined: cervical [...] Teo Craft MD documented in this encounter [facility] 11-30-2023 Telephone encounter Note Yes she has caresource unfornatuly. [facility] 11-30-2023 Miscellaneous Notes Yes she has caresource [...] ALEKS. Thank you documented in this encounter [facility] 11-30-2023 Telephone encounter Note Patient is called and scheduled for all appointments [facility] 11-27-2023 Telephone encounter Note Signed and added a CT chest as well. Thanks! Abdi [facility] 11-27-2023 Telephone encounter Note Rodney: Please schedule Omaira for a PET scan then follow up with Dr. Israel. Dr. Israel: Please sign pended PET order as we discussed today. Anita Pressley RN [facility] 11-19-2023 Telephone encounter Note Person Calling:Omaira Reason for Call: requesting a work excuse for her daughter Kendal Ruiz fir 11/17 & 11/18. Pt Phone #: [phone] Pharmacy Name and # : Pt last seen: Visit date not found Ananya HEARD [facility] 11-19-2023 Miscellaneous Notes Person Calling:Omaira Reason for Call: requesting a work excuse for her daughter Kendal Ruiz fir 11/17 & 11/18. Pt Phone #: [phone] Pharmacy Name and # : Pt last seen: Visit date not found Ananya HEARD documented in this encounter [facility] 11-18-2023 Note HNO ID: [id number] Author: DORON FLORENTINO MD Service: ? Author [...] Successful intubation technique: video laryngoscopy Devices used: [employer] Endotracheal tube insertion site: oral Blade size: [...] November 18, 2023 TIME: 3:55 PM CSN: [id number] [facility] 11-17-2023 Instructions Brie Kaur PA-C - 11/17/2023 3:21 PM EDT PATIENT PREOPERATIVE INSTRUCTIONS Teo Craft MD has scheduled you for your procedure at this surgery center: [facility] [place] [facility] Scheduling Office: [phone] --[phone] [place], [place] [address]. Please read below carefully for your personalized instructions. Arrival Time for Surgery: - To obtain your arrival time for surgery, call your physician's office the day before your surgery. - If your surgery is scheduled for Thursday, call the Thursday before. Your surgeon s try out person will tell you what time to call the office. - If you have not reached the departmental try out person by 5 P.M., call [phone] after 5 P.M. the day before your [...] Procedures: - YOU MUST HAVE A RESPONSIBLE SIZE MIXER TAKE YOU HOME. A PRINT SHOP ASSISTANT OR DIRECTOR OF CLOUD SERVICES CANNOT BE MADE A RESPONSIBLE SIZE MIXER. - We recommend that a responsible person [...] Advance Directive, please fax a copy to [phone] or email to for it to be [...] chart that day. documented in this encounter [facility] 11-17-2023 History and physical note Images from [...] via [place]. Follows with outside pulm at [facility], Dr. Valery DAVIS in October per pt. Diminished breath sounds bilaterally throughout, no wheezing. SpO2 95% on 2L O2. Pt reports that she started prednisone taper from her research hydrologist today, currently taking prednisone 40 mg. Pt reports she called research hydrologist's office because she felt like her breathing [...] large neck Non-male patient STOP-Bang Score: 1 [id number] Score: Age: <65 Sex: female CHF history: No Hypertension history: No Stroke/TIA/thromboembolism history: No Vascular disease history: No Diabetes history: No [id number] Score: 1 ANESTHESIA FINDINGS: Intubation History: No [...] Initiated: Orders placed by surgeon/surgical service in [facility]. Orders Placed This Encounter Complete Blood Count [...] 11/18/23 (per pt, surgery currently 12/16/23 in [facility]) at . REVIEW OF SYSTEMS: General: No [...] requiring medication, no history of angina, CHF, CT, cardiac surgery or stents. Denies rest pain, [...] or any previous visit (from the past 32683 hour(s)). Instructions Given to Patient: Instructions located in the after visit summary. Patient given verbal and written preop instructions and voices comprehension and compliance. SIGNATURE: Brie Kaur PA-C PATIENT NAME: CINTHIA Guerrero DATE: 11/17/2023 TIME: 3:00 PM PAGER/CONTACT #: [facility] 11-17-2023 History and physical note Images from [...] via NC. Follows with outside pulm at [facility], Dr. Valery DAVIS in October per pt. Diminished breath sounds bilaterally throughout, no wheezing. SpO2 95% on 2L O2. Pt reports that she started prednisone taper from her research hydrologist today, currently taking prednisone 40 mg. Pt reports she called research hydrologist's office because she felt like her breathing [...] large neck Non-male patient STOP-Bang Score: 1 [id number] Score: Age: <65 Sex: female CHF history: No Hypertension history: No Stroke/TIA/thromboembolism history: No Vascular disease history: No Diabetes history: No [id number] Score: 1 ANESTHESIA FINDINGS: Intubation History: No [...] Initiated: Orders placed by surgeon/surgical service in [facility]. Orders Placed This Encounter Complete Blood Count [...] 11/18/23 (per pt, surgery currently 12/16/23 in [facility]) at . REVIEW OF SYSTEMS: General: No [...] requiring medication, no history of angina, CHF, CT, cardiac surgery or stents. Denies rest pain, [...] or any previous visit (from the past 25573 hour(s)). Instructions Given to Patient: Instructions located in the after visit summary. Patient given verbal and written preop instructions and voices comprehension and compliance. SIGNATURE: Brie Kaur PA-C PATIENT NAME: CINTHIA Guerrero DATE: 11/17/2023 TIME: 3:00 PM PAGER/CONTACT #: documented in this encounter [facility] 11-16-2023 Telephone encounter Note Spoke with Ms. Guerrero ... Will plan for a CT chest after she is recovered from her procedure and path is final. Thanks! Abdi [facility] 11-16-2023 Telephone encounter Note Pt called in [...] would appreciate a call ALEKS. Thank you [facility] 10-27-2023 Nurse Note Tobacco Use: 1.5 packs/day, for 35 years. Quit 04/13/2012. Types: Cigarettes Was smoking cessation packet given? N/A - Patient is a non-smoker or quit >1 year ago. Was a referral initiated?N/A Patient is a non-smoker [facility] 10-27-2023 Nurse Note Tobacco Use: 1.5 packs/day, for 35 years. Quit 04/13/2012. Types: Cigarettes Was smoking cessation packet given? N/A - Patient is a non-smoker or quit >1 year ago. Was a referral initiated?N/A Patient is a non-smoker documented in this encounter [facility] 09-29-2023 Telephone encounter Note Patient is scheduled and they have been calling her with appointment. [facility] 09-29-2023 Miscellaneous Notes Patient is scheduled and [...] orders, thank you! documented in this encounter [facility] 09-25-2023 Telephone encounter Note Email sent to cancer answer line for scheduling thanks [facility] 09-24-2023 Telephone encounter Note Tiff- Dr Israel signed ENT order for Dr Craft. Please schedule and let him know when this consult can be done. Thank you! Silvia Jha RN [facility] 09-23-[address] Israel- please sign pended ENT order so Rodney can contact Dr Craft for consult. Silvia Jha, RN [facility] 09-21-2023 Telephone encounter Note Order pended- please review before signing. Silvia Jha RN [facility] 09-21-2023 Telephone encounter Note Images from the [...] Abdi Dailey please place orders, thank you! [facility] 09-16-2023 Surgery Surgical operation note Summary: Left cervical lymph node biopsy BRIEF OPERATIVE / PROCEDURE NOTE LOG ID: [id number] SURGERY/PROCEDURE DATE: 09/16/2023 INCISION/PROCEDURE START TIME: 10:42 AM INCISION CLOSE/PROCEDURE END TIME: 11:02 AM SURGEON(S)/PROCEDURALIST(S) AND RN INVASIVE(S): Surgeon(s) and Role: * Khushboo Mcintyre MD, [...] DATE: September 16, 2023 TIME: 11:06 AM [facility] Work Phone: 09-16-2023 Surgical operatio n note Summary: Left cervical lymph node biopsy BRIEF OPERATIVE / PROCEDURE NOTE LOG ID: [id number] SURGERY/PROCEDURE DATE: 09/16/2023 INCISION/PROCEDURE START TIME: 10:42 AM INCISION CLOSE/PROCEDURE END TIME: 11:02 AM SURGEON(S)/PROCEDURALIST(S) AND RN INVASIVE(S): Surgeon(s) and Role: * Khushboo Mcintyre MD, [...] TIME: 11:06 AM documented in this encounter [facility] 09-16-2023 Instructions Formatting of th is note [...] Howell RN In Department: HOSP MAIN [id number] [facility] 09-16-2023 Miscellaneous Notes AMBULATORY PATIENT EDUCATION TOPIC: [...] HOSP MAIN [id number] documented in this encounter [facility] 09-14-2023 Telephone encounter Note Thanks! Abdi [facility] 09-14-2023 Miscellaneous Notes Thanks! Abdi Patient is [...] neck seen on PET CT at either [facility] or [facility]. Thanks! Abdi documented in this encounter [facility] 09-14-2023 Telephone encounter Note Patient is scheduled 09/15 for biopsy [facility] 09-14-2023 Nurse Note Pre- e instructions: Address: [address] Contacted patient and confirmed appt. for biopsy scheduled on 09/16/23, at [facility]. Diet: Procedure to be done with local anesthetic, you may eat, drink and take medications as prescribed the day of this procedure. Medications: IF ok with your Prescribing Provider: RADIOLOGY RECOMMENDS THESE MEDICATION RESTRICTIONS : None Labs: Lab work needs to be drawn by 09/15/23 at any [facility] Lab. Arrival: Please bring your Photo ID and Insurance Card. A general consent may need to be signed. Arrival at 8:30am to desk QB-1 ([facility]) and check in for your procedure. Supervisor Wet End/Transportation: Supervisor Wet End not necessary Written instructions provided to patient via [employer] If you have any questions please call [phone] [facility] 09-14-2023 Nurse Note Pre- e instructions: Address[address] Contacted patient and confirmed appt. for biopsy scheduled on 09/16/23, at [facility]. Diet: Procedure to be done with local anesthetic, you may eat, drink and take medications as prescribed the day of this procedure. Medications: IF ok with your Prescribing Provider: RADIOLOGY RECOMMENDS THESE MEDICATION RESTRICTIONS : None Labs: Lab work needs to be drawn by 09/15/23 at any [facility] Lab. Arrival: Please bring your Photo ID and Insurance Card. A general consent may need to be signed. Arrival at 8:30am to desk QB-1 ([facility]) and check in for your procedure. Supervisor Wet End/Transportation: Supervisor Wet End not necessary Written instructions provided to patient via [employer] If you have any questions please call [phone] documented in this encounter [facility] 09-14-2023 Telephone encounter Note Spoke to pt and scheduled biopsy for 09/16/23. [facility] 09-14-2023 Miscellaneous Notes Spoke to pt and [...] this procedure: intermediate-high risk. Reference from [facility] Privacy Compliance Manager: [email or web address] STAFF SIGNATURE: Osito Galicia MD DATE: September [...] 10:44am REQUESTING STAFF: Abdi Israel MD PHONE/PAGER: [phone] SPECIFICS OF THE REQUEST:Cervical lymph node bx SPECIAL REQUESTS: TISSUE SAMPLE, LABWORK: N/A IS THIS REQUEST PART OF A RESEARCH PROTOCOL: No MEDICAL DIAGNOSIS: Malignant neoplasm of unspecified part of unspecified bronchus or lung (HCC) [C34.90] TYPE AND DATE OF THE EXAM THAT IS THE BASIS OF THE REQUEST: PET 09/01/2023 IMAGING: [facility] Note to all persons requesting biopsies: All biopsy requests will be scheduled as quickly as possible, based on the clinical urgency, availability of appointment times, the need to hold anti-thrombolytic therapy (aspirin, blood thinners) and the patient s schedule, including the need for an available route driver coin machines. If a percutaneous biopsy or drainage is not felt to be safe or an alternative method for establishing a diagnosis is possible, this will be discussed directly with the requesting physician. documented in this encounter [facility] 09-14-2023 Telephone encounter Note Hebeto Girl, just checking on this one thanks [facility] 09-09-2023 Telephone encounter Note RADIOLOGIST REQUEST / APPROVAL FORM STAFF RADIOLOGIST: Dr. Niko Gatica PROCEDURE TO BE DONE UNDER: US PROCEDURE REQUESTED: FNA Requested PROCEDURE: Approved TIME SLOT NEEDED: 1 Hour NOTES: None SPECIAL LABS/ PROCESSING: None Pre-procedure labs: CBC: ordered INR: not needed COVID: not needed SIR Bleeding risk category for this procedure: intermediate-high risk. Reference from [facility] Privacy Compliance Manager: [email or web address] STAFF SIGNATURE: Osito Galicia MD DATE: September 09, 2023 TIME: 9:31 AM T [facility] Work Phone: 09-08-2023 Telephone encounter Note BX. [...] September 08, 2023 TIME: 11:34 AM T [facility] 09-08-2023 Telephone encounter Note Summary: Cervical lymph node bx RADIOLOGY CALL CENTER INTAKE DATE: 09/08/2023 TIME: 10:44am REQUESTING STAFF: Abdi Israel MD PHONE/PAGER: [phone] SPECIFICS OF THE REQUEST:Cervical lymph node bx SPECIAL REQUESTS: TISSUE SAMPLE, LABWORK: N/A IS THIS REQUEST PART OF A RESEARCH PROTOCOL: No MEDICAL DIAGNOSIS: Malignant neoplasm of unspecified part of unspecified bronchus or lung (HCC) [C34.90] TYPE AND DATE OF THE EXAM THAT IS THE BASIS OF THE REQUEST: PET 09/01/2023 IMAGING: [facility] Note to all persons requesting biopsies: All biopsy requests will be scheduled as quickly as possible, based on the clinical urgency, availability of appointment times, the need to hold anti-thrombolytic therapy (aspirin, blood thinners) and the patient s schedule, including the need for an available route driver coin machines. If a percutaneous biopsy or drainage is not felt to be safe or an alternative method for establishing a diagnosis is possible, this will be discussed directly with the requesting physician. [facility] 09-08-2023 Telephone encounter Note Signed - thanks! Abdi [facility] 09-08-2023 Telephone encounter Note Yes please - Abdi [facility] 09-08-2023 Telephone encounter Note Images from the original note were not included. Abdi Israel MD Graves, Ariana, LPN Cc: Silvia Jha RN; Rodney Rinaldi Please set Ms. Guerrero up for an US guided biopsy of one of the lymph nodes in the neck seen on PET CT at either [facility] or [place]. Thanks! Abdi [facility] 09-01-2023 Note HNO ID: [id number] Author: SAHARA BRICENO RT(R) Service: ? Author [...] [id number] PATIENT DISCHARGED TO: Ambulatory patient, left [place] department area. A Diagnostic radioactive procedure has taken place, with no further precautions necessary other than routine body substance precautions. More information regarding radiation safety can be found using this link: [email or web address]%20Medicin [email or web address] SIGNATURE: Sahara Briceno RT(R) PATIENT NAME: CINTHIA Guerrero DATE: September 01, 2023 TIME: 1:23 PM PAGER/CONTACT #: [facility] 08-18-2023 Telephone encounter Note Seen patient checked her mychart yesterday for appointments. [facility] 08-18-2023 Miscellaneous Notes Seen patient checked her [...] us know she had a CT at [facility] ordered per Dr Kenyon yesterday. He called her today to let her know that there was something concerning and he wanted her to contact our office. CT report printed from [facility] and images requested. Dr Israel- please advise when you have had a chance to review. Thank you Silvia Jha RN documented in this encounter [facility] 08-17-2023 Telephone encounter Note Called patient and left message with date and time of Time, due to her insurance It has to be put out 2 weeks I told her to please call me back if she has any questions thank you. [facility] 08-17-2023 Telephone encounter Note Scan from July was CXR. Per LORENZO, no need to get images. PSS- I spoke to pt and she is expecting your call to arrange PET here. Thank you Silvia Jha RN [facility] 08-17-2023 Telephone encounter Note Definite changes in the left chest from previous available scan in April. Ordered PET to further characterize findings and please request CT Chest images from 07/2023. Thanks! Abdi [facility] 08-14-2023 Telephone encounter Note Pt called in to let us know she had a CT at [facility] ordered per Dr Kenyon yesterday. He called her today to let her know that there was something concerning and he wanted her to contact our office. CT report printed from [facility] and images requested. Dr Israel- please advise when you have had a chance to review. Thank you Silvia Jha RN [facility] 05-25-2023 Note HNO ID: [id number] Author: ABDI ISRAEL MD Service: ? Author Type: Physician Type: Progress Notes Filed: 06/09/2023 01:43 Note Text: Radiation Oncology - Follow Up Note PATIENT NAME: CINTHIA Guerrero PATIENT DIAGNOSIS/PATIENT IDENTIFICATION: Ms. Guerrero is a 62-year-old woman with severe COPD, who is diagnosed with Stage IA3, [id number], non-small cell lung cancer arising from a [...] remains on supplemental oxygen at 2 L/min pqmhbc-eqy-agwws and continues on Pulmicort and albuterol rescue inhaler. He denies cough or hemoptysis or chest pain or difficulty swallowing today. She does note fatigue with stable appetite and hydration. 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 She otherwise denies any recent fevers, chills, [...] COPD, who is diagnosed with Stage IA3, [id number], non-small cell lung cancer arising from a [...] in the process of transitioning care between research hydrologist. She had repeat CT imaging of the [...] which included preparing to see the patient, ksqy-mc-zljt patient care, and counseling and educating the patient/family/caregiver. This document has been created with the use of voice recognition technology. It may contain inaccuracies, misspellings, inaccurate syntax or inappropriate word context that are a result of the inadequacies/shortcomings of said technology/software. [facility] 05-20-2023 Miscellaneous Notes Patient is called and scheduled for next week Pt called in and was admitted to [facility] last week. They did CT Chest. She has been waiting on insurance approval for a chest CT and will not need one now. She would like follow up arranged. Reports printed from [facility] and images requested. PSS- please call pt and arrange follow up with Dr Israel for next week. Thank you Silvia Jha RN documented in this encounter [facility] 11-27-2022 History of Presen t illness Narrative Images from the original note were not included. Radiation Oncology - Follow Up Note PATIENT NAME: CINTHIA Guerrero PATIENT DIAGNOSIS/PATIENT IDENTIFICATION: Ms. Guerrero is a 62-year-old woman with severe COPD, who is diagnosed with Stage IA3, [id number], non-small cell lung cancer arising from a [...] been following up with pulmonary therapy at [facility] and with her research hydrologist Dr. Driver and using her nebulizers. She [...] COPD, who is diagnosed with Stage IA3, [id number], non-small cell lung cancer arising from a [...] the chest. She will follow with her research hydrologist Dr. Driver to optimize her respiratory function and I will plan to see her back in approximately [address] of the chest. The patient is aware to contact the clinic in the interim should any questions or concerns arise. Thank you for allowing us to participate in the care of this patient. Signed by: Abdi Isreal MD I spent a total of 20 minutes on the date of the service which included preparing to see the patient, hxkq-un-zzft patient care, and counseling and educating the patient/family/caregiver. This document has been created with the use of voice recognition technology. It may contain inaccuracies, misspellings, inaccurate syntax or inappropriate word context that are a result of the inadequacies/shortcomings of said technology/software. documented in this encounter [facility] 11-18-2022 Miscellaneous Notes FYI--Dr. Driver's progress note is available in Care Everywhere. Dr. Kenyon's office note to be faxed over per his office. Anita Pressley LPN Pt notified, CT canceled. Rashid working on records from Dr Kenyon and Dr Driver. Images/report being pushed from [facility]. Rosa Victoria, RN Yes, please cancel CT tomorrow. In addition to the images, please request any office notes from Dr. Kenyon as well as her research hydrologist. Thanks! Abdi Pt called for CT 11/19/22. She reports CT completed 09/24/22 at [facility]. CT chest verified and will send images/report. LORENZO: Would you like to cancel CT? Please advise Rosa Victoria RN documented in this encounter [facility] 06-26-2022 Evaluation note Encounter Date Diagnosis Assessment [...] History of lung cancer (ICD-10 - Z85.118) [facility] Other 02-20-2023 History of Present illness Narrative* Abdi Israel MD - 06/02/2022 11:53 PM EST Radiation Oncology - Follow Up Note PATIENT NAME: CINTHIA Guerrero PATIENT Signed by: Abdi Israel MD I spent a total of 20 minutes on the date of the service which included preparing to see the patient, qght-gv-zfel patient care, and counseling and educating the patient/family/caregiver. This document has been created with the use of voice recognition technology. It may contain inaccuracies, misspellings, inaccurate syntax or inappropriate word context that are a result of the inadequacies/shortcomings of said technology/software. [facility] Evaluation note* Encounter Date Diagnosis Assessment Notes [...] History of lung cancer (ICD-10 - Z85.118) [facility] Other 02-01-2023 Miscellaneous Notes* Telephone Encounter - Abdi Israel MD - 05/14/2022 10:40 PM EST Thanks! Abdi * Telephone Encounter - Kendal Sears - 05/14/2022 1:59 PM EST Records faxed to Dr. Conde. Requested images be pushed to [facility]. * Telephone Encounter - Telma Pak - [...] yesterday showing fungal/aspergillus infection. Spoke with her research hydrologist, Dr. Cross, today and agreed to refer [...] Thanks Anita Pressley LPN [facility] History of Present illness Narrative* Interface Note - 05/09/2022 8:00 PM EST Epic Scheduled Downtime: 05/10/2022 1:00:00 AM to 05/10/2022 3:56:00 AM documented in this [facility] Nurse Note* Luz Maria Blanca RN - [...] Luz Maria Blanca RN documented in [facility] History of Present illness Narrative* Vitor Kaur MD - 04/28/2022 3:03 PM EST VIRTUAL VISIT PROGRESS NOTE This is a virtual visit using Kijubi video visit. It required patient-provider interaction for [...] eating well. COPD managed locally by a research hydrologist. HISTORY REVIEWED (electronic chart updated): PAST MEDICAL [...] Emphysema. Controlled and stable; managed by local research hydrologist. I spent a total of 60 minutes on the date of the service which included preparing to see the patient, vebt-ve-bfqq patient care, completing clinical documentation, obtaining and/or reviewing separately obtained history, performing a medically appropriate examination, counseling and educating the pat ient/family/caregiver, ordering medications, tests, or procedures, communicating with other HCPs (not separately reported), independently interpreting results (not separately reported), communicatingresults to the patient/family/caregiver, and care coordination (not separately reported) Vitor Kaur MD April 28, 2022 documented in this [facility] Miscellaneous Notes* Telephone Encounter - Telma Pak - 04/23/2022 9:58 AM EST Patient has been scheduled for both & confirmed appt day & time. Telma Pak * Telephone Encounter - Telma Pak - 04/23/2022 9:10 AM EST Called patient to schedule her for EKG & labs per e-mail. No answer, LMOV requesting a returnedphone call. 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 Please try to access the PET avid area if possible. Consultation request/referral by: Abdi Israel MD ([facility]) Reviewed by: PHANI Kaur MD April 22, 2022 3:49 PM Addendum: CBC with diff: WBC 6.81 03/02/2018 RBC 4.94 03/02/2018 Hemoglobin 14.7 03/02/2018 Hematocrit 44.5 03/02/2018 MCV 90.1 03/02/2018 MCH 29.8 03/02/2018 MCHC 33.0 03/02/2018 RDW-CV 12.4 03/02/2018 Platelet Count 234 03/02/2018 MPV 10.3 03/02/2018 Neut% 64.3 03/02/2018 Lymph% 25.3 03/02/2018 Hale% 9.1 03/02/2018 Eosin% 0.7 03/02/2018 Baso% 0.6 03/02/2018 Abs Neut (ANC) 4.36 03/02/2018 Abs Hale 0.62 03/02/2018 Abs Eosin 0.05 03/02/2018 Abs [...] - 0.96 mg/dL Final documented in this encounterKind[facility]-2023 Miscellaneous Notes* Telephone Encounter - Anita Pressley [...] time. Anita Pressley LPN documented in this [facility] History of Present illness Narrative* Abdi Israel MD - 03/14/2022 11:44 PM EST Radiation Oncology - Follow Up Note PATIENT NAME: Omaira Guerrero PATIENT Signed by: Abdi Israel MD I spent a total of 20 minutes on the date of the service which included preparing to see the patient, ykbe-bt-lvdo patient care, and counseling and educating the patient/family/caregiver. This document has been created with the use of voice recognition technology. It may contain inaccuracies, misspellings, inaccurate syntax or inappropriate word context that are a result of the inadequacies/shortcomings of said technology/software. documented in this encounter[facility] Miscellaneous Notes* Telephone Encounter - Telma Pak [...] then follow-up to review documented in this encounter[facility]22 Miscellaneous Notes* Telephone Encounter - Anita Pressley [...] then follow-up to review documented in this encounter[facility]22 History of Present illness Narrative* Abdi Israel MD - 06/06/2021 4:50 PM EST Radiation Oncology - Follow Up Note PATIENT NAME: Omaira Guerrero PATIENT DIAGNOSIS/PATIENT IDENTIFICATION: Ms. Guerrero is a 60-year-old woman with severe COPD, who is diagnosed with Stage IA3, [id number], non-small cell lung cancer arising from a [...] COPD, who is diagnosed with Stage IA3, [id number], non-small cell lung cancer arising from a [...] which included preparing to see the patient, kqyx-ns-liqc patient care and counseling and educating the patient/family/caregiver. This document has been created with the use of voice recognition technology. It may contain inaccuracies, misspellings, inaccurate syntax or inappropriate word context that are a result of the inadequacies/shortcomings of said technology/software. documented in this encounterKind[facility]10-01-2021 NoteChief Complaint consultation for nevus HPI Staff 60 year old female presents on consultation from Dr. Kenyon for right lower leg fresh colored skin lesion. Present for 4 months. Scabbed area from recent trama. Denies itching. Also notes dark pigmentedlesion to right confucianist. Present 4 months. Does not bleed or itch. History of Present Illness 60 yo female with h/o COPD, previous lung cancer, on oxygen; referred for changing skin lesions; right lower extremity lesion enlarging; recently scratched so scabbed over; no bleeding; right confucianist lesion with small scab, no pain or [...] nodes, cyanosis, clubbing. Skin: no rashes right confucianist with 4 mm raised, erythematous lesion with [...] infarction: Brother. Cardiac arrest: Mother, Father and Sister.[facility] HospitalComment on above:Result Comment: Electronically Signed By: JIM DAVENPORT, Jose Domínguez\Date and Time Signed: 01/11/21 11:20 [id number] History general Narrative - Reported* Type Description Date Medical History COPD Surgical History appendectomy Surgical History csection Hospitalization History PNA at [place] 05/2011 [facility] Other Evaluation note* Diagnosis Non-small cell cancer of left lung (HCC)- Primary Neoplasm of lung Neoplasm of unspecified nature of respiratory system [facility]* Diagnosis Neoplasm of lung- Primary Neoplasm of unspecified nature of respiratory system [facility]* Diagnosis Non-small cell cancer of left lung (HCC)- Primary [facility]* Diagnosis Lung mass- Primary Swelling, mass, or lump in chest [facility]* Diagnosis Preoperative examination- Primary Preoperative examination, unspecified Bronchiolar disease Other diseases of trachea and bronchus [facility]* Diagnosis Non-small cell cancer of left lung (HCC)- Primary Lung mass Swelling, mass, or lump in chest Centrilobular emphysema (HCC) Other emphysema Bronchiolar disease Other diseases of trachea and bronchus [facility]* Diagnosis Bronchiolar disease Other diseases of trachea and bronchus Lung nodule Solitary pulmonary nodule [facility]* Diagnosis Aspergillus pneumonia (HCC)- Primary Aspergillosis Non-small cell cancer of left lung (HCC) documented in this encounter [facility] note* Diagnosis Non-small cell cancer of left lung (HCC)- Primary documented in this encounter [facility] noteNo [facility] Other evaluation note* Diagnosis Neoplasm of lung- Primary Neoplasm of unspecified nature of respiratory system documented in this encounter [facility] note* Diagnosis Onset Date Resolution Status Chronic respiratory failure with hypoxia acute COPD exacerbation acute Exertional shortness of breath acute Pneumonia acute Pulmonary cachexia due to COPD acute Tachycardia acute [facility] Work Phone: evaluation note* Diagnosis Onset Date Resolution Status Acute hypoxic respiratory failure acute Cachexia acute Chronic respiratory failure with hypoxia acute COPD exacerbation acute Exertional shortness of breath acute Pneumonia acute Pulmonary cachexia due to COPD acute Tachycardia acute [facility] Work Phone: evaluialcc note* Diagnosis Malignant neoplasm of unspecified part of unspecified bronchus or lung (HCC)- Primary [facility]* Diagnosis Neoplasm- Primary Neoplasm of unspecified nature, site unspecified documented in this encounter [facility] note* Diagnosis Onset Date Resolution Status Chronic respiratory failure with hypoxia acute COPD (chronic obstructive pulmonary disease) acute [facility] Work Phone: evaluation note* Diagnosis Non-small cell cancer of left lung (HCC)- Primary 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 Follows with outside pulm at [facility], Dr. Valery DAVIS in October per pt. Diminished breath sounds bilaterally throughout, no wheezing. SpO2 95% on 2L O2. Pt reports that she started prednisone taper from her research hydrologist today, currently taking prednisone 40 mg. Ptreports she called research hydrologist's office because she felt like her breathing [...] treated with SBRT. [facility]* Diagnosis Onset Date Resolution Status Chronic respiratory failure with hypoxia acute COPD (chronic obstructive pulmonary disease) acute Chronic respiratory failure with hypoxia acute COPD (chronic obstructive pulmonary disease) acute Sleep apnea, obstructive acu te [facility] Work Phone: Evaluation note* Diagnosis Lymphadenopathy- Primary [...] hazards to health documented [facility] this encounter [facility]* Diagnosis Malignant neoplasm of unspecified part [...] hazards to health documented in this encounter [facility] Discharge instructions Additional Instructions I may not have addressed or treated all of your medical illnesses or the abnormal blood work or imaging studies during this hospitalization. Please ask your primary care provider to obtain [facility] records entirely to follow up on all of the abnormal physical, laboratory, and imaging findings that I have not addressed. Please return back to the emergency room or seek medical attention if your symptoms worsen or return. You asked me to give you the name of the lung specialist who is affiliated with [facility]. Please follow-up with Dr. Rasmussen regarding COPD, lung nodule and pulmonary care. Until you get your first appointment with Dr. Rasmussen, continue to follow-up with Dr. Driver guarding your lung nodule and COPD You would need to have follow-up on lung nodule that is seen before Discharging you from [facility] does not mean that your [...] Thank you. Continue home oxygen per chronic orders.[facility] Work Phone: [facility] for referral (narrative)* Diagnostic Procedure Only (Routine) - Additional Clinical Info Needed Specialty Diagnoses / Procedures Referred By Contac t Referred To Contact MOLECULAR & FUNCTIONAL IMAGING Diagnoses Neoplasm of lung Procedures NM PET/CT SKULL-THIGH INITIAL PET IMAGING CT ATTENUATION SKULL BASE MID-THIGH Abdi Israel MD [address] [place] [address] [place] [address] Molecular & Functional Imaging [address] [place] [address] Referral ID Status Reason Start Date Expiration Date Visits Requested Visits Authorized [id number] Additional Clinical Info Needed Auto-Generat ed Referral 2 03/22/2023 1 1 [facility] for referral (narrative)* Diagnostic Procedure Only (Routine) - Additional Clinical Info Needed Specialty Diagnoses / Procedures Referred By Contac t Referred To Contact MOLECULAR & FUNCTIONAL IMAGING Diagnoses Malignant neoplasm of unspecified part of unspecified bronchus or lung (HCC) Procedures NM PET/CT SKULL-THIGH SUBSEQUENT PET IMAGING CT ATTENUATION SKULL BASE MID-THIGH Abdi Israel MD [address] [place] [address] [place] [address] [facility] [address] [place] [address] Referral ID Status Reason Start Date Expiration Date Visits Requested Visits Authorized [id number] Additional Clinical Info Needed Auto-Generat ed Referral 08/17/2023 09/15/2024 1 1 [facility] for referral (narrative)* Outpatient Procedure (Routine) - Closed Specialty Diagnoses / Procedures Referred By Contac t Referred To Contact [facility] [place] Diagnoses Non-small cell cancer of left lung (HCC) Lymphadenopathy Procedures ECG COMPLETE ECG ROUTINE ECG W/LEAST 12 LDS W/I&R Teo Craft MD [id number] [place] [address] Referral ID Status Reason Start Date Expiration Date V isits Requested Visits Authorized [id number] Closed Auto-Generate d Referral 11/05/2023 10/26/2024 1 1 * Consult, Test, Treat (Routine) - Authorized Specialty Diagnoses / Procedures [facility]erred By [facility] Referred To Contact Diagnoses Non-small cell cancer of left lung (HCC) 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) Lymphadenopathy Procedures REFER TO [facility] PREOPERATIVE OPTIMIZATION OFFICE/OUTPATIENT [facility] 60 MINUTES Teo Craft MD [address] [place] [address] Referral ID Status Reason Start Date Expiration Date Visits Requested Visits Authorized [id number] Authorized PCP Requested Referral 11/05/2023 10/26/2024 1 1 [facility] Summary Purpose Family History No Family History Records Found Relationship Condition Age at Onset Recorded Date/T alvarez brother Coronary artery disease Unknown Heart disease Unknown father Coronary artery disease Unknown sister Coronary artery disease Unknown Advance Directives No Advanced Directives Records FoundDocuments on File Type Date 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 Advance Directive(s) Advance Directive(s) 03/19/2018 8:37 AM Advance Directive Response Recorded Date/ Time Advance Directives No February 11:15am Advance Directive Response Recorded Date/ Time Advance Directives No February 12:15pm Advance Directive Response Recorded Date/ Time Advance Directives No September 28 2:19pm Reason for Referral Specialty Diagnoses / Procedures [facility] IMAGING Diagnoses Non-small cell cancer of left lung (HCC) Neoplasm of lung Procedures CT CHEST W IVCON DIAGNOSTIC COMPUTED TOMOGRAPHY THORAX W/CONTRAST Abdi Israel MD [address] [place] [address] Ct Imaging Referral ID Status Reason Start Date Expiration Date Visits Requested Visits Authorized [id number] Pending Review Auto-Generat ed Referral 06/06/2022 07/06/2022 1 1 Specialty Diagnoses / Procedures Referred By Contac t Referred To Contact CT IMAGING Diagnoses Lung mass Procedures CT CHEST WO IVCON DIAGNOSTIC COMPUTED TOMOGRAPHY THORAX W/O CNTRST Vitor Kaur MD [address] [place] [address] Ct Imaging Referral ID Status Reason Start Date Expiration Date Visits Requested Visits Authorized [id number] Pending Review Auto-Generat ed Referral 04/22/2022 05/22/2023 1 1 Specialty Diagnoses / Procedures Referred By Contac t Referred [facility] Diagnoses Lung mass Procedures ECG COMPLETE ECG ROUTINE ECG W/LEAST 12 LDS W/I&R Vitor Kaur MD [address] [place] [address] [facility] [place] [address] [place] [address] Referral ID Status Reason Start Date Expiration Date Visits Requested Visits Authorized [id number] Pending Review Auto-Generat ed Referral 04/22/2022 04/22/2023 1 1 Specialty Diagnoses / Procedures Referred By Contac t Referred To Contact Infectious Diseases Diagnoses Aspergillus pneumonia (HCC) Non-small cell cancer of left lung (HCC) Procedures CONSULT TO INFECTIOUS DISEASES Abdi Israel MD [address] [place] [address] [place] [address] Referral ID Status Reason Start Date Expiration Date Visits Requested Visits Authorized [id number] Ref Not Required PCP Requested Referral 05/14/2022 05/14/2023 1 1 Specialty Diagnoses / Procedures Referred By Contac t Referred To Contact CT IMAGING Diagnoses Neoplasm of lung Procedures CT CHEST W IVCON DIAGNOSTIC COMPUTED TOMOGRAPHY THORAX W/CONTRAST Abdi Israel MD [address] [place] [address] Ct Imaging [facility] Referral ID Status Reason Start Date Expiration Date Visits Requested Visits Authorized [id number] Pending Review Auto-Generat ed Referral 05/13/2023 12/27/2023 1 1 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) Procedures CONSULT TO ENT OFFICE/OUTPATIENT [facility] 60 MINUTES Abdi Israel MD [facility] [place] [id number] Referral ID Status Reason Start Date Expiration Date Visits Requested Visits Authorized [id number] Authorized PCP Requested Referral 09/24/2023 09/22/2024 1 1 Specialty Diagnoses / Procedures Referred By Contac t Referred To Contact CT IMAGING Diagnoses Malignant neoplasm of unspecified part of unspecified bronchus or lung (HCC) Procedures CT CHEST W IVCON DIAGNOSTIC COMPUTED TOMOGRAPHY THORAX W/CONTRAST Abdi Israel MD [facility] [address] [place] [id number] Ct Imaging [place] [address] Referral ID Status Reason Start Date Expiration Date Visits Requested Visits Authorized [id number] Authorized Auto-Generat ed Referral 12/02/2023 01/31/2024 1 1 Specialty Diagnoses / Procedures Referred By Contac t Referred To Contact MOLECULAR & FUNCTIONAL IMAGING Diagnoses Malignant neoplasm of unspecified part of unspecified bronchus or lung (HCC) Procedures NM PET/CT SKULL-THIGH SUBSEQUENT PET IMAGING CT ATTENUATION SKULL BASE MID-THIGH Abdi Israel MD [address] [place] [address] [place] [address] Molecular & Functional Imaging [address] [place] [address] Referral ID Status Reason Start Date Expiration Date V isits Requested Visits Authorized [id number] Denied Auto-Generate d Referral 12/02/2023 01/31/2024 1 [...] section and content) DATE CREATED AUTHOR 10/06/2017 [facility] DATE CREATED AUTHOR AUTHOR'S ORGANIZ ATION 10/09/2017 [facility] DATE CREATED AUTHOR AUTHOR'S ORGANIZ ATION 03/22/2018 [facility] DATE CREATED AUTHOR AUTHOR'S ORGANIZ ATION 03/26/2021 [facility] DATE CREATED AUTHOR AUTHOR'S ORGANIZ ATION 09/19/2022 [facility] DATE CREATED AUTHOR AUTHOR'S ORGANIZ ATION 05/31/2023 [facility] DATE CREATED AUTHOR AUTHOR'S ORGANIZ ATION 08/18/2023 [facility] DATE CREATED AUTHOR AUTHOR'S ORGANIZ ATION 09/14/2023 [facility] DATE CREATED AUTHOR AUTHOR'S ORGANIZ ATION 11/19/2023 [facility] DATE CREATED AUTHOR AUTHOR'S ORGANIZ ATION 12/11/2023 [facility] Source Comments (unrecognize d section and content) In the event this informatio n is protected by the Federal Confidentiality of Alcohol and Drug Abuse Patient Records regulations: The Federal rules restrict any use of the information to criminally investigate or prosecute any alcohol or drug abuse patient.[facility] the event this information is protected by the Federal Confidentiality of Alcohol and Drug Abuse Patient Records regulations: The Federal rules restrict any use of the information to criminally investigate or prosecute any alcohol or drug abuse patient.[facility] the event this information is protected by the Federal Confidentiality of Alcohol and Drug Abuse Patient Records regulations: The Federal rules restrict any use of the information to criminally investigate or prosecute any alcohol or drug abuse patient.[facility] the event this information is protected by the Federal Confidentiality of Alcohol and Drug Abuse Patient Records regulations: The Federal rules restrict any use of the information to criminally investigate or prosecute any alcohol or drug abuse patient.[facility] the event this information is protected by the Federal Confidentiality of Alcohol and Drug Abuse Patient Records regulations: The Federal rules restrict any use of the information to criminally investigate or prosecute any alcohol or drug abuse patient.[facility] the event this information is protected by the Federal Confidentiality of Alcohol and Drug Abuse Patient Records regulations: The Federal rules restrict any use of the information to criminally investigate or prosecute any alcohol or drug abuse patient.[facility] the event this information is protected by the Federal Confidentiality of Alcohol and Drug Abuse Patient Records regulations: The Federal rules restrict any use of the information to criminally investigate or prosecute any alcohol or drug abuse patient.[facility] the event this information is protected by the Federal Confidentiality of Alcohol and Drug Abuse Patient Records regulations: The Federal rules restrict any use of the information to criminally investigate or prosecute any alcohol or drug abuse patient.[facility] the event this information is protected by the Federal Confidentiality of Alcohol and Drug Abuse Patient Records regulations: The Federal rules restrict any use of the information to criminally investigate or prosecute any alcohol or drug abuse patient.[facility] the event this information is protected by the Federal Confidentiality of Alcohol and Drug Abuse Patient Records regulations: The Federal rules restrict any use of the information to criminally investigate or prosecute any alcohol or drug abuse patient.[facility] the event this information is protected by the Federal Confidentiality of Alcohol and Drug Abuse Patient Records regulations: The Federal rules restrict any use of the information to criminally investigate or prosecute any alcohol or drug abuse patient.[facility] the event this information is protected by the Federal Confidentiality of Alcohol and Drug Abuse Patient Records regulations: The Federal rules restrict any use of the information to criminally investigate or prosecute any alcohol or drug abuse patient.[facility] the event this information is protected by the Federal Confidentiality of Alcohol and Drug Abuse Patient Records regulations: The Federal rules restrict any use of the information to criminally investigate or prosecute any alcohol or drug abuse patient.[facility] the event this information is protected by the Federal Confidentiality of Alcohol and Drug Abuse Patient Records regulations: The Federal rules restrict any use of the information to criminally investigate or prosecute any alcohol or drug abuse patient.[facility] the event this information is protected by the Federal Confidentiality of Alcohol and Drug Abuse Patient Records regulations: The Federal rules restrict any use of the information to criminally investigate or prosecute any alcohol or drug abuse patient.[facility] the event this information is protected by the Federal Confidentiality of Alcohol and Drug Abuse Patient Records regulations: The Federal rules restrict any use of the information to criminally investigate or prosecute any alcohol or drug abuse patient.[facility] the event this information is protected by the Federal Confidentiality of Alcohol and Drug Abuse Patient Records regulations: The Federal rules restrict any use of the information to criminally investigate or prosecute any alcohol or drug abuse patient.[facility] the event this information is protected by the Federal Confidentiality of Alcohol and Drug Abuse Patient Records regulations: The Federal rules restrict any use of the information to criminally investigate or prosecute any alcohol or drug abuse patient.[facility]ima[facility] the event this information is protected by the Federal Confidentiality of Alcohol and Drug Abuse Patient Records regulations: The Federal rules restrict any use of the information to criminally investigate or prosecute any alcohol or drug abuse patient.[facility] the event this information is protected by the Federal Confidentiality of Alcohol and Drug Abuse Patient Records regulations: The Federal rules restrict any use of the information to criminally investigate or prosecute any alcohol or drug abuse patient.[facility] the event this information is protected by the Federal Confidentiality of Alcohol and Drug Abuse Patient Records regulations: The Federal rules restrict any use of the information to criminally investigate or prosecute any alcohol or drug abuse patient.[facility]ima[facility] the event this information is protected by the Federal Confidentiality of Alcohol and Drug Abuse Patient Records regulations: The Federal rules restrict any use of the information to criminally investigate or prosecute any alcohol or drug abuse patient.[facility] the event this information is protected by the Federal Confidentiality of Alcohol and Drug Abuse Patient Records regulations: The Federal rules restrict any use of the information to criminally investigate or prosecute any alcohol or drug abuse patient.[facility] the event this information is protected by the Federal Confidentiality of Alcohol and Drug Abuse Patient Records regulations: The Federal rules restrict any use of the information to criminally investigate or prosecute any alcohol or drug abuse patient.[facility] the event this information is protected by the Federal Confidentiality of Alcohol and Drug Abuse Patient Records regulations: The Federal rules restrict any use of the information to criminally investigate or prosecute any alcohol or drug abuse patient.[facility] the event this information is protected by the Federal Confidentiality of Alcohol and Drug Abuse Patient Records regulations: The Federal rules restrict any use of the information to criminally investigate or prosecute any alcohol or drug abuse patient.[facility] Reason for Visit (unrecogniz ed section and content) Reason Comments Lung Cancer Reason Comments Orders Reason Comments Orders Reason Comments Lung Cancer Reason Comments Appointment PreOp Bronch Reason Comments Patient Update Appointment Reason Comments Lung Cancer Lung Mass Reason Comments Appointment Specialty Diagnoses / Procedures Referred By Dwayne t Referred To Contact ADMITTING Diagnoses Bronchiolar disease Procedures [facility] INCL FLUOR GDNCE DX W/CELL WASHG SPX BRONCHOSCOPY [facility] [address] Referral ID Status Reason Start Date Expiration Date Visits Re quested Visits Authorized [id number] 1 1 Reason Comments Appointment Reason Comments [...] [facility] [address] [place] [address] Referral ID Status Reason Start Date Expiration Date Visits Re quested Visits Authorized [id number] 1 1 Reason Comments Appointment Confirmation Reason [...] HIGH MDM 60 MINUTES Abdi Israel MD [address] [place] [address] [place] [address] Referral ID Status Reason Start Date Expiration Date V isits Requested Visits Authorized [id number] Closed PCP Requested Referral 09/24/2023 09/22/2024 1 [...] September 29, 2023 End: September 29, 2023 Route [employer] Relationship Specialty Start Date End Date Adithya Kenyon MD [address] [place] [id number] PCP - General Family Practice 02/25/18 [employer] Relationship Specialty Start Date End Date Adithya Kenyon MD [address] [place] [id number] PCP - General Family Medicine 02/25/18 [employer] Relationship Specialty Start Date End Date Adithya Kenyon MD [address] [place] [id number] PCP - General Family Medicine 02/25/18 [employer] Relationship Specialty Start Date End Date Adithya Kenyon MD [address] [place] [id number] PCP - General Family Medicine 02/25/18 [employer] Relationship Specialty Start Date End Date Adithya Kenyon MD [address] [facility] [place] [address] PCP - General Family Medicine 02/25/18 [employer] Relationship Specialty Start Date End Date Adithya Kenyon MD [address] [place] [address] PCP - General Family Medicine 02/25/18 [employer] Relationship Specialty Start Date End Date Adithya Kenyon MD [address] [facility] [place] [address] PCP - General Family Medicine 02/25/18 [employer] Relationship Specialty Start Date End Date Adithya Kenyon MD [address] [place] [address] PCP - General Family Medicine 02/25/18 [employer] Relationship Specialty Start Date End Date Adithya Kenyon MD [address] [facility] [place] [address] PCP - General Family Medicine 02/25/18 [employer] Relationship Specialty Start Date End Date Adithya Kenyon MD PCP - General Family Medicine 02/25/18 [employer] Relationship Specialty Start Date End Date Adithya [...] May 14, 2023 End: May 17, 2023 [employer] Relationship Specialty Start Date End Date Adithya Kenyon MD PCP - General Family Medicine 02/25/18 [employer] Relationship Specialty Start Date End Date Adithya Kenyon MD PCP - General Family Medicine 02/25/18 [employer] Relationship Specialty Start Date End Date Adithya Kenyon MD PCP - General Family Medicine 02/25/18 [employer] Relationship Specialty Start Date End Date Adithya Kenyon MD PCP - General Family Medicine 02/25/18 [employer] Relationship Specialty Start Date End Date Adithya Kenyon MD PCP - General Family Medicine 02/25/18 [employer] Relationship Specialty Start Date End Date Adithya Kenyon MD PCP - General Family Medicine 02/25/18 [employer] Relationship Specialty Start Date End Date Adithya Kenyon MD PCP - General Family Medicine 02/25/18 Team Status: Inactive Member Role Status Dates Adithya Kenyon MD Primary Care Provider Active Start: December 03, 2023 End: December 03, 2023 Denver Rasmussen MD Attending Provider Active Start: December 03, 2023 End: December 03, 2023 [employer] Relationship Specialty Start Date End Date Adithya Kenyon MD PCP - General Family Medicine 02/25/18 [employer] Relationship Specialty Start Date End Date Adithya [...] BE BASED ON THE PRIMARY CLINICAL RECORDS. [email or web address] provides no warranty or guarantee of the accuracy or completeness of information in this document.
[2023-12-13 08:25] LABS: Lactate/Lactic Acid 0.7 mmol/L (0.4-2.0)
--- NOTE | 2023-12-13 09:38 | P.HP_ITS ---
HPI H&P: HPI History of Present Illness Chief complaint: SOB, COPD, EXACERBATION Narrative: Patient is well-known to me from caring for her through the office. Over the last weeks been attempting to keep her out of the hospital, adjusted her steroids, antibiotics, increased her frequency of her aerosol treatments to every 4 hours, all of this has been ineffective and she has had especially in the last 24 hours increasing her shortness of breath and cough with increasing sputum production that is colored in nature When I saw patient up in the medical surgical floor, patient was sitting up in bed, moderate respiratory distress with cough throughout the evaluation, loose sounding cough Opioid HPI Opioid Management Most Recent Pain and Opioid Data: Last Pain Assessment 12/13/23 11:00 Last ORT Total Score 0 12/13/23 08:19 Last ORT Risk Category Low Risk 12/13/23 08:19 Review of Systems ROS Status of ROS 10 or more systems reviewed and unremark able except as noted in history and below [facility] Medical History (Updated 12/13/23 @ 05:42 by Renard Pavon MD) Acute exacerbation of chronic obstructive pulmonary disease (COPD) ?J44.1 - Chronic obstructive pulmonary disease with (acute) exacerbation (ICD-10) Tachycardia ?R00.0 - Tachycardia, unspecified (ICD-10) Failure of outpatient treatment ?Z78.9 - Other specified health status (ICD-10) Tachypnea ?R06.82 - Tachypnea, not elsewhere classified (ICD-10) Asthma exacerbation in COPD ?J44.1 - Chronic obstructive pulmonary disease with (acute) exacerbation (ICD-10) ?J45.901 - Unspecified asthma with (acute) exacerbation (ICD-10) Community acquired pneumonia ?J18.9 - Pneumonia, unspecified organism (ICD-10) Acute infective exacerbation of chronic obstructive airway disease ?J44.1 - Chronic obstructive pulmonary disease with (acute) exacerbation (ICD-10) Acute bronchitis ?J20.9 - Acute bronchitis, unspecified (ICD-10) Acute and chronic respiratory failure with hypoxia ?J96.21 - Acute and chronic respiratory failure with hypoxia (ICD-10) Iron deficiency anemia ?D50.9 - Iron deficiency anemia, unspecified (ICD-10) Sinus tachycardia ?R00.0 - Tachycardia, unspecified (ICD-10) Acute exacerbation of chronic obstructive pulmonary disease ?J44.1 - Chronic obstructive pulmonary disease with (acute) exacerbation (ICD-10) Chronic obstructive pulmonary disease ?J44.9 - Chronic obstructive pulmonary disease, unspecified (ICD-10) Surgical History (Updated 12/13/23 @ 08:54 by Neha Ball) Hx of appendectomy ?Z90.49 - Acquired absence of other specified parts of digestive tract (ICD- 10) Family History (Updated 09/22/22 @ 21:17 by Veronika Almeida) Other Family history of myocardial infarction Social History Within the past year, how often did you have a drink containing alcohol: never Score interpretation: A score less than 3 is consistent with normal alcohol consumption. Smoking status: Former smoker Non-prescribed substance use: denies use Previous occupational history: disabled Highest level of school completed/degree received: GED or equivalent Are you now , , , , never or living with a partner: In a typical week, how many times do you talk on the telephone with family, friends, or neighbors: 3 or more times per week How often do you get together with friends or relatives: 3 or more times per week How often do you attend orthodox or scientologist services: 1-3 times per year Do you belong to any clubs or organizations such as orthodox groups unions, [employer] or athletic groups, or school groups: no Total score: 2 Score interpretation: A score of greater than or equal to 2 indicates the lowest level of social isolation. Little interest or pleasure in doing things: not at all Feeling down, depressed, or hopeless: not at all Feel stressed/tense/nervous/anxious/difficulty sleeping: not at all Do you think of yourself as: straight/heterosexual Gender Identity: female Meds Home Medications and Allergies Home Medications ?Medication ?Instructions ?Recorded ?Confirmed ?Type budesonide 0.5 mg/2 mL suspension 0.5 mg inhalation Q12H shortness 09/22/22 12/13/23 History for nebulization of breath or wheezing ipratropium 0.5 mg-albuterol 3 mg 3 ml inhalation Q6H 09/22/22 12/13/23 History (2.5 mg base)/3 mL nebulization soln montelukast 10 mg tablet 10 mg PO .hs 09/22/22 12/13/23 History tiotropium 2.5 mcg-olodaterol 2.5 2 puff inhalation Q24H 09/22/22 12/13/23 Hi story mcg/actuation mist for inhalation (Stiolto Respimat) albuterol sulfate 90 mcg/actuation 2 inh inhalation QID PRN SOB 02/07/23 12/13/23 History aerosol inhaler (ProAir HFA) theophylline 400 mg 400 mg PO DAILY 02/07/23 12/13/23 History tablet,extended release 24 hr ferrous sulfate 325 mg (65 mg 325 mg PO BID #60 tabs 05/09/23 12/13/23 Rx iron) tablet cetirizine 10 mg tablet 10 mg PO DAILY 12/13/23 12/13/23 History prednisone 5 mg tablet 5 mg PO DAILY 12/13/23 12/13/23 History Allergies Allergy/AdvReac Type Severity Reaction Status Date / Time No Known Drug Allergies Allergy Verified 12/13/23 04:47 Exam Constitutional Vital Signs, click to edit/add: Last Vital Signs Temp 97.5 F L 12/13/23 08:19 Pulse 115 H 12/13/23 08:19 Resp 20 12/13/23 08:19 BP 153/70 H 12/13/23 08:19 Pulse Ox 92 L 12/13/23 08:19 O2 Del Method Room Air 12/13/23 08:19 O2 Flow Rate 2 12/13/23 08:19 Documenting provider has reviewed patient's vital signs: yes Common normals: apparent distress (moderate respiratory distress with some conversational dyspnea) Chest Common normals: inspection of chest normal Respiratory Common normals: no retractions; abnormal respiratory effort Auscultation: rhonchi (Diffuse rhonchi), wheezes, diminished lung sounds and egophony (Left upper lobe) Cardio Common normals: regular rhythm; irregular rate Rate: tachycardic GI Common normals: Normal to inspection, nondistended, normoactive bowel sounds present Neuro Common normals: oriented x3, CN's II-XII intact bilaterally and moves all extremities Results Labs Labs: Short CBC 12/13/23 Range/Units 04:48 WBC 10.2 (4.0-11.0) 10^3/uL Hgb 12.5 (12.0-16.0) g/dL Hct 40.6 (36.0-48.0) % Plt Count 242 (150-450) 10^3/uL BMP 12/13/23 05:01 Sodium 139 Potassium 4.3 Chloride 98 Carbon Dioxide 39.4 H BUN 9.0 Creatinine 0.40 L Glucose 93 Calcium 9.2 Assessment and Plan Assessment and Plan (1) COPD exacerbation: (2) Acute exacerbation of chronic obstructive pulmonary disease (COPD): (3) Tachycardia: (4) Failure of outpatient treatment: Plan Admission findings: Sinus tachycardia, respiratory distress secondary to left upper lobe pneumonia with failed outpatient treatment of acute exacerbation of COPD Acute exacerbation of COPD secondary to left upper lobe pneumonia-IV antibiotics, aerosol treatments, higher dose steroid, try to obtain sputum culture. Sinus tachycardia-likely related to her acute exacerbation of her COPD will monitor closely. Admission status: Patient with failed outpatient treatment over the last week for acute exacerbation of COPD with oral antibiotics, higher dose of her baseline steroid and increasing her aerosol treatments every 4 hours. Despite this her respiratory distress is increased and she has had increasing sputum production. Medically necessary treatment will span 2 midnights. Inpatient status
[2023-12-13] MEDS: CETIRIZINE HCL 10 MG TABLET PO (10:17)
[2023-12-13] MEDS: FERROUS SULFATE 325 MG TABLET PO ×2 (10:17→21:12)
[2023-12-13] MEDS: THEOPHYLLINE ANHYDROUS 400 MG TAB.ER.24H PO (10:17)
[2023-12-13] MEDS: 0.9 % SODIUM CHLORIDE 250 ML 10 ML IV (10:18)
[2023-12-13] MEDS: LEVOFLOXACIN IN DEXTROSE 5 % 750 MG/150 ML PREMIX 100 MG IV (10:18)
[2023-12-13 10:19] LABS: Influenza Virus A Antigen Negative; Influenza Virus B Antigen Negative; Internal Control Within Normal Limits; SARS-CoV-2 Ag NEGATIVE (NEGATIVE)
[2023-12-13] MEDS: BUDESONIDE 0.5 MG/2 ML AMPULE NEB IH ×2 (10:24→22:52)
[2023-12-13] MEDS: MONTELUKAST SODIUM 10 MG TABLET PO (21:12)
[2023-12-14] VITALS (24 sets, daily range): BP systolic 102–134; BP diastolic 59–77; PULSE 106–136; TEMP 36.2–36.6; O2SAT 91–96
[2023-12-14] MEDS: IPRATROPIUM/ALBUTEROL SULFATE 3 ML AMPUL.NEB IH ×6 (03:56→23:24)
[2023-12-14] MEDS: METHYLPREDNISOLONE SOD SUCC PF 125 MG/2 ML VIAL IVP ×4 (05:18→21:20)
[2023-12-14 06:29] LABS: Hematocrit 39.2 % (36.0-48.0); Hemoglobin 12.2 g/dL (12.0-16.0); Mean Corpuscular HGB Conc 31.1 g/dL (29.9-35.2); Mean Corpuscular Hemoglobin 27.1 pg (26.7-34.0); Mean Corpuscular Volume 87.1 fL (81.0-99.0); Mean Platelet Volume 9.5 fL (9.5-13.5); Platelet Count 229 10^3/uL (150-450); Red Cell Distribution Width 13.4 % (11.0-15.0); White Blood Count 13.9 10^3/uL (4.0-11.0)
[2023-12-14 06:42] LABS: Anion Gap 7.1; BUN Creatinine Ratio 13.2; Calcium 9.6 mg/dL (8.5-10.1); Carbon Dioxide 37.6 mmol/L (21.0-32.0); Chloride 102 mmol/L (98-107); Estimated GFR (African America >60 (>=60); Estimated GFR (Non-African Ame >60 (>=60); Glucose 134 mg/dL (74-106); Potassium 3.7 mmol/L (3.5-5.1); Sodium 143 mmol/L (136-145)
[2023-12-14 06:59] LABS: Lymphocytes Absolute Manual 0.27 10^3/uL (1.20-3.80); Segmented Neut Absolute Manual 13.62 10^3/uL (1.4-6.5)
[2023-12-14] MEDS: THEOPHYLLINE ANHYDROUS 400 MG TAB.ER.24H PO (08:11)
[2023-12-14] MEDS: FERROUS SULFATE 325 MG TABLET PO ×2 (08:11→21:20)
[2023-12-14] MEDS: CETIRIZINE HCL 10 MG TABLET PO (08:11)
--- OUTSIDE RECORDS SUMMARY | 2023-12-14 09:04 | XMS_ITS | CCD ---
Author Organization [facility] CliniSymn Care Team Providers Care Licensed Prosthetist/Orthotist Name Role Phone Adithya Kenyon Unavailable Unavailable JAYE HOUGH Unavailable Unavailable ADITHYA KENYON Unavailable Unavailable ABDDUGLAS ARIAS Unavailable Unavailable Adithya Kenyon MD Primary Care Provider [phone] Adithya Kenyon MD Primary Care Provider [phone] Adithya Kenyon MD Primary Care Provider [phone] JOSE CONDE Admitting [...] HOY ., DR HAJI Primary Care Unavailable LAPOINT, DR JULES [employer] Unavailable HOY ., [...] Unavailable Adithya Kenyon MD Primary Care Provider [phone] Ally Warner Admitting Unavailable Hoy, Adithya M Primary Care Unavailable Cassandra Andersen Attending Unavailable ANA DRIVER Attending Unavailable ANA DRIVER Attending Unavailable CARLA MONTAGUE Attending Unavailable Adithya Kenyon MD Primary Care Provider [phone] TEO CRAFT Referring Unavailable HOY, ADITHYA M [...] levoFLOXacin; Translations: [LEVOFLOXACIN] Drug Allergy 03-02-2018 Unknown [facility] Other [place] Repository (2 sources) levoFLOXacin Drug Allergy [facility] Repository Medications Current Medications Medication Drug Class(es) Dates Sig (Normalized) Sig (Original) [id number] 200 actuat albuterol 0.09 mg/actuat metered dose [...] mg by mouth daily at bedtime. nystatin 989824 unt/ml oral suspension (6 sources) Polyene Antifungal Start: take 750012 [IU] by mouth three times daily Nystatin Active 333062 UNIT PO Three times daily May 17, 2023 9:48am Nystatin 998630 units/mL 1 mL to each cheek Four [...] ordered (3 sources) oxygen as ordere d [facility] Active predniSONE 5 mg oral tablet [...] daily. 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 Author Type: Anesthesiologist Type: Anesthesia Postprocedure Evaluation Filed: 11/19/2023 07:55 Note Text: POST ANESTHESIA EVALUATION NOTE : 1960 Procedure Summary Date: 11/18/23 Room / Location: [address] Anesthesia Start: 1535 Anesthesia Stop: 174 [...] DATE: November 19, 2023 TIME: 7:55 AM [facility]: [id number] [facility] 11-19-2023 [facility] Telephone (HNQ) LIZETHCINTHIA ONTIVEROS ([id number]) 1960 F Date Time Provider Department 11/19/23 TEO CRAFT During your visit today, we recorded the following information about you: Ananya Acuna 11/19/2023 1:51 PM Signed Person Calling:Omaira Reason for Call: requesting a work excuse for her daughter Kendal Ruiz fir 11/17 AND 11/18. Pt Phone #: [phone] Pharmacy Name and # : Pt last [...] Status:Closed by ANANYA ACUNA on 11/19/23 Normal [facility] ANES PRE-OPon 11-18-2023 ANES PRE-OP HNO ID: [id number] Author: DORON FLORENTINO MD Service: ? Author [...] and consent discussed: yes. Patient / Responsible Alliance Party agrees to proceed: yes Patient / [...] November 18, 2023 TIME: 3:43 PM CSN: [id number] Normal [facility] ECG COMPLETEon 11-18-2023 Atrial Rate 115 BPM [facility] Calculated P [place] 94 degrees [facility] Calculated R [place] 84 degrees [facility] Calculated T [place] 88 degrees [facility] P-R Interval 158 ms [facility] QRS Duration 74 ms [facility] QT Interval 312 ms [facility] QTC Calculation (Bazett) 431 ms [facility] Ventricular Rate 115 BPM [facility] SINUS TACHYCARDIA RIGHT ATRIAL ENLARGEMENT MINIMAL VOLTAGE CRITERIA FOR LVH, MAY BE NORMAL VARIANT BORDERLINE ECG NO PREVIOUS ECGS AVAILABLE Confirmed by MD BLAND GREGORY () on 11/18/2023 7:35:[address] [facility] NAME : CINTHIA GUERRERO PID : [id number] : 1960 Gender : Female Race : ORD : [id number] Procedure Date : Nov 17 2023 14:38:04 Edit Date : Nov 18 2023 07:35:34 Diagnosis: SINUS TACHYCARDIA RIGHT ATRIAL ENLARGEMENT MINIMAL VOLTAGE CRITERIA FOR LVH, MAY BE NORMAL VARIANT BORDERLINE ECG NO PREVIOUS ECGS AVAILABLE Confirmed by MD BLAND GREGORY () on 11/18/2023 7:35:32 AM Test Reason : [facility] Location : 10 : PAT/ Overread By : MD BLAND GREGORY Edited By : MD BLAND GREGORY Referred By : TEO CRAFT Acquired by : PERLA JUNIOR CPD [facility] OPERATIVE NOon 11-18-2023 OPERATIVE NO HNO ID: [id number] Author: TEO CRAFT MD Service: Otolaryngology Author Type: Physician Type: Operative Report Filed: 11/23/2023 12:14 Note Text: [facility] [place] [id number] or [phone]) [facility] C O N F I D E N T I A L I N F O R M A T I O N [facility] DOCUMENT OPERATIVE REPORT Otolaryngology Head and Neck Surgery Name: CINTHIA Guerrero [facility] #: [id number] Date: 11/18/2023 Date of : 1960 Pre [...] Teo Craft MD Brandon Prendes, MD Normal [facility] SURGICAL PATHOLOGYon 024 CASE REPORT Normal [facility] Comment on above: Order Comment: Speci men Type: TISSUE SPECIMENOrdering Facility: [facility] Address: [address] [place] [address] Result Comment: [facility] Pathology Report Case: [id number] Authorizing Provider: Teo Craft MD Collected: 11/18/2023 04:25 PM Ordering Location: Admitting Received: 11/18/2023 05:12 PM Pathologist: Stephane Elmore MD, PhD Specimens: A) - Lymph Node, Biopsy, Left posterior supraclavicular lymph node B) - Lymph Node, Biopsy, Left supraclavicular external jugular node Performed By: #### S ####[facility] LABCLIA [id number] [address] LABORATORYCLIA [id number] [address] CLINICAL HISTORY Normal [facility] Comment on above: Order Comment: Speci men Type: TISSUE SPECIMENOrdering Facility: [facility] Address: [address] [place] [address] Result Comment: Pre- op diagnosis: Non-small cell cancer of left lung (HCC) [C34.92] Lymphadenopathy [R59.1] Performed By: #### S ####[facility] LABCLIA [id number] [address] LABORATORYCLIA [id number] [address] DIAGNOSIS COMMENT Normal [facility] Comment on above: Order Comment: Speci deepthi Type: TISSUE SPECIMENOrdering Facility: [facility] Address: [address] [place] [address] Result Comment: The morphologic findings described below show benign lymph nodes with follicular hyperplasia. Granulomatous diseases not identified. GMS stains are negative for microorganisms. There is no evidence of a lymphoproliferative disorder, metastatic carcinoma or other malignancy. Laboratory Developed Test (LDT) Disclaimer: Performance characteristics of immunohistochemical, immunofluorescent and chromogenic in-situ hybridization tests have been determined by the performing laboratory within [facility]???s Adarsh Yang Pathology and Laboratory Medicine Department ([facility], [facility], [facility], [facility], [facility], [facility], or [facility]) in a manner consistent with CLIA requirements. One or more of these tests have not been cleared or approved by the FDA. [facility] is regulated under CLIA as qualified to perform high-complexity testing. These tests are used for clinical purposes. They should not be regarded as investigational or for research. Positive and negative controls stain appropriately. Performed By: #### S ####[facility] LABCLIA [id number] [address] LABORATORYCLIA [id number] [address] FINAL DIAGNOSIS Normal [facility] Comment on above: Order Comment: Speci men Type: TISSUE SPECIMENOrdering Facility: [facility] Address: [address] [place] [address] Result Comment: Lymp h nodes, left posterior supraclavicular and left supraclavicular external jugular, excisional biopsies (A-B): - Benign lymph nodes with follicular hyperplasia. - GMS stains negative for microorganisms. - No evidence of malignancy. - See comment. [facility] 11/27/2023 Performed By: #### S ####[facility] LABCLIA [id number] [address] LABORATORYCLIA [id number] [address] FINAL PERFORMING LAB Normal [facility] Comment on above: Order Comment: Speci men Type: TISSUE SPECIMENOrdering Facility: [facility] Address: [address] [place] [address] Result Comment: Diag nostic interpretation performed at [facility], [address] [place] [address] CLIA# [id number] Histology Assistant: Axel Romano M.D. Performed By: #### S ####[facility] LABCLIA [id number] [address] [id number] [address] GROSS DESCRIPTION Normal [facility] Comment on above: Order Comment: Speci men Type: TISSUE SPECIMENOrdering Facility: [facility] Address: [address] [place] [address] Result Comment: A. L ymph Node, Biopsy [...] 2023 12:08 PM Gross examination performed at [facility], [address] [place] [address] Performed By: #### S ####[facility] [id number] [address] [id number] [address] MICROSCOPIC DESCRIPTION The histologic sections of [...] D1 stain shows no lymphoid staining. Normal [facility] Comment on above: Order Comment: Speci men Type: TISSUE SPECIMENOrdering Facility: [facility] Address: [address] [place] [address] Performed By: #### S ####[facility] LABCLIA [id number] [facility] HOMESuyapa ALICEA[address] STATES [facility] LABORATORYCLIA [id number] [address] [place] Basic metabolic 2000 panelon 11-17-2023 Anion gap [Moles/Vol] 8 mmol/L 8 - 15 mmol/L [facility] Calcium [Mass/Vol] 9.7 mg/dL 8.5 - 10. 2 mg/dL [facility] Chloride [Moles/Vol] 95 mmol/L Low 98 - 10 7 mmol/L [facility] CO2 [Moles/Vol] 36 mmol/L High 22 - 30 mmol/L [facility] Creatinine [Mass/Vol] 0.37 mg/dL Low 0.58 - 0.96 mg/dL [facility] GFR/1.73 sq M.predicted among non-blacks MDRD (S/P/Bld) [Vol rate/Area] 114 mL/min/{1.73_m2} - PINF [facility] Comment on above: Estimated Glomerular Filtration Rate [...] 200 mg/dL High 74 - 99 mg/dL [facility] Comment on above: The [place] Diabete s Association (ADA) provides guidance for [...] Standards of Medical Care in Diabetes 2016, [place] Diabetes Association. Diabetes Care. 2016.39(Suppl 1). Interpretation and review of laboratory results Abnormal [facility] Potassium [Moles/Vol] 3.9 mmol/L 3.7 - 5.1 mmol/L [facility] Sodium [Moles/Vol] 139 mmol/L 136 - 144 mmol/L [facility] Urea nitrogen [Mass/Vol] 8 mg/dL 7 - 21 mg/dL [facility] Anion gap [Moles/Vol] 8 mmol/L Normal 8-15 [facility] Comment on above: Order Comment: Renuka lacey Type: BLOOD SPECIMEN [facility] Address: [address] [place] [address] Performed By: #### 2 4321-2 #### [facility] CLIA [id number] [address] [place] [address] [place] Calcium [Mass/Vol] 9.7 mg/dL Normal 8.5-10.2 [facility] Comment on above: Order Comment: Renuka lacey Type: BLOOD SPECIMEN [facility] Address: [address] [place] [address] Performed By: #### 2 4321-2 #### [facility] CLIA [id number] [address] [place] [address] [place] Chloride [Moles/Vol] 95 mmol/L Low 98-107 [facility] Comment on above: Order Comment: Renuka lacey Type: BLOOD SPECIMEN [facility] Address: [address] [place] [address] Performed By: #### 2 4321-2 #### [facility] CLIA [id number] [address] [place] [address] [place] CO2 [Moles/Vol] 36 mmol/L High 22-30 [facility] Comment on above: Order Comment: Shamikai men Type: BLOOD SPECIMEN [facility] Address: [address] [place] [address] Performed By: #### 2 4321-2 #### [facility] CLIA [id number] [address] [place] [address] [place] Creatinine [Mass/Vol] 0.37 mg/dL Low 0.58-0.96 [facility] Comment on above: Order Comment: Renuka lacey Type: BLOOD SPECIMEN [facility] Address: [address] [place] [address] Performed By: #### 2 4321-2 #### [facility] CLIA [id number] [address] [place] [address] [place] Creatinine and Glomerular filtration rate.predicted panel (S/P/Bld) 114 mL/min/1.73m??? Normal >=60 [facility] Comment on above: Order Comment: Renuka lacey Type: BLOOD SPECIMEN [facility] Address: [address] [place] [address] Result Comment: Angelique mated Glomerular Filtration Rate [...] GFR. Performed By: #### 2 4321-2 #### [facility] CLIA [id number] [address] [place] [address] [place] Glucose [Mass/Vol] 200 mg/dL High 74-99 [facility] Comment on above: Order Comment: Renuka lacey Type: BLOOD SPECIMEN [facility] Address: [address] [place] [address] Result Comment: The [place] Diabetes Association (ADA) provides guidance for cutoff [...] Standards of Medical Care in Diabetes 2016, [place] Diabetes Association. Diabetes Care. 2016.39(Suppl 1). Performed By: #### 2 4321-2 #### [facility] CLIA [id number] [address] STATES [facility] Potassium [Moles/Vol] 3.9 mmol/L Normal 3.7-5.1 [facility] Comment on above: Order Comment: Speci men Type: BLOOD SPECIMEN [facility] Address: [address] [place] [address] Performed By: #### 2 4321-2 #### [facility] CLIA [id number] [address] STATES OF [facility] Sodium [Moles/Vol] 139 mmol/L Normal 136-144 [facility] Comment on above: Order Comment: Speci men Type: BLOOD SPECIMEN [facility] Address: [address] [place] [address] Performed By: #### 2 4321-2 #### [facility] CLIA [id number] [address] STATES [facility] Urea nitrogen [Mass/Vol] 8 mg/dL Normal 7-21 [facility] Comment on above: Order Comment: Speci men Type: BLOOD SPECIMEN [facility] Address: [address] [place] [address] Performed By: #### 2 4321-2 #### [facility] CLIA [id number] [address] [place] CBC W Auto Differential pane l (Bld)on 11-17-2023 Basophils (Bld) [#/Vol] NINF [facility] Basophils/100 WBC (Bld) 0.2 % [facility] Differential cell count method Nom (Bld) Auto [facility] Eosinophils (Bld) [#/Vol] [facility] Eosinophils/100 WBC (Bld) 0.4 % [facility] Erythrocyte distribution width (RBC) [Ratio] 12.8 % 11.5 - 15.0 % [facility] Hematocrit (Bld) [Volume fraction] 40.3 % 36.0 - 46.0 % [facility] Hemoglobin (Bld) [Mass/Vol] 12.4 g/dL 11.5 - 15.5 g/dL [facility] Immature granulocytes (Bld) [#/Vol] NINF [facility] Immature granulocytes/100 WBC (Bld) 0.2 % [facility] Interpretation and review of laboratory results Abnormal [facility] Lymphocytes (Bld) [#/Vol] 0.31 10*3/uL Low [facility] Lymphocytes/100 WBC (Bld) 6.0 % [facility] MCH (RBC) [Entitic mass] 26.4 pg 26.0 - 34.0 pg [facility] MCHC (RBC) [Mass/Vol] 30.8 g/dL 30.5 - 36.0 g/dL [facility] MCV (RBC) [Entitic vol] 85.9 fL 80.0 - 100.0 fL [facility] Monocytes (Bld) [#/Vol] 0.06 10*3/uL [facility] Monocytes/100 WBC (Bld) 1.2 % [facility] Neutrophils (Bld) [#/Vol] 4.76 10*3/uL [facility] Neutrophils/100 WBC (Bld) 92.0 % [facility] Nucleated RBC (Bld) [#/Vol] [facility] Nucleated RBC/100 WBC (Bld) [Ratio] 0.0 % /100 WBC [facility] Platelet mean volume (Bld) [Entitic vol] 9.0 fL 9.0 - 12.7 fL [facility] Platelets (Bld) [#/Vol] 286 10*3/uL [facility] RBC (Bld) [#/Vol] 4.69 10*6/uL 3.90 - 5.2 0 m/uL [facility] WBC (Bld) [#/Vol] 5.17 10*3/uL [facility] Basophils (Bld) [#/Vol] 10*3/uL Normal <0.11 [facility] Comment on above: Order Comment: Speci men Type: BLOOD SPECIMEN [facility] Address: [address] [place] [address] Performed By: #### 5 7021-8 #### [facility] CLIA [id number] [address] [place] [id number] [place] [address] [place] Basophils/100 WBC (Bld) 0.2 % Normal [facility] Comment on above: Order Comment: Speci men Type: BLOOD SPECIMEN [facility] Address: [address] [place] [address] Performed By: #### 5 7021-8 #### [facility] CLIA [id number] [address] [place] Differential cell count method Nom (Bld) Auto Normal [facility] Comment on above: Order Comment: Speci men Type: BLOOD SPECIMEN [facility] Address: [address] [place] [address] Performed By: #### 5 7021-8 #### [facility] CLIA [id number] [address] [place] [address] [place] Eosinophils (Bld) [#/Vol] 10*3/uL Normal <0.46 [facility] Comment on above: Order Comment: Speci men Type: BLOOD SPECIMEN [facility] Address: [address] [place] [address] Performed By: #### 5 7021-8 #### [facility] CLIA [id number] [address] [place] [address] [place] Eosinophils/100 WBC (Bld) 0.4 % Normal [facility] Comment on above: Order Comment: Speci men Type: BLOOD SPECIMEN [facility] Address: [address] [place] [address] Performed By: #### 5 7021-8 #### [facility] CLIA [id number] [address] [place] Erythrocyte distribution width (RBC) [Ratio] 12.8 % Normal 11.5-15.0 [facility] Comment on above: Order Comment: Speci men Type: BLOOD SPECIMEN [facility] Address: [address] [place] [address] Performed By: #### 5 7021-8 #### [facility] CLIA [id number] [address] [place] Hematocrit (Bld) [Volume fraction] 40.3 % Normal 36.0-46.0 [facility] Comment on above: Order Comment: Speci men Type: BLOOD SPECIMEN [facility] Address: [address] [place] [address] Performed By: #### 5 7021-8 #### [facility] CLIA [id number] [address] [place] [address] [place] Hemoglobin (Bld) [Mass/Vol] 12.4 g/dL Normal 11.5-15.5 [facility] Comment on above: Order Comment: Speci men Type: BLOOD SPECIMEN [facility] Address: [address] [place] [address] Performed By: #### 5 7021-8 #### [facility] CLIA [id number] [address] [place] [address] [place] Immature granulocytes (Bld) [#/Vol] 10*3/uL Normal <0.10 [facility] Comment on above: Order Comment: Speci men Type: BLOOD SPECIMEN [facility] Address: [address] [place] [address] Performed By: #### 5 7021-8 #### [facility] CLIA [id number] [address] [place] [address] [place] Immature granulocytes/100 WBC (Bld) 0.2 % Normal [facility] Comment on above: Order Comment: Speci men Type: BLOOD SPECIMEN [facility] Address: [address] [place] [address] Performed By: #### 5 7021-8 #### [facility] CLIA [id number] [address] [place] [address] [place] Lymphocytes (Bld) [#/Vol] 0.31 10*3/uL Low 1.00-4.00 [facility] Comment on above: Order Comment: Speci men Type: BLOOD SPECIMEN [facility] Address: [address] [place] [address] Performed By: #### 5 7021-8 #### [facility] CLIA [id number] [address] [place] [address] [facility] [place] Lymphocytes/100 WBC (Bld) 6.0 % Normal [facility] Comment on above: Order Comment: Speci men Type: BLOOD SPECIMEN [facility] Address: [address] [place] [address] Performed By: #### 5 7021-8 #### [facility] CLIA [id number] [address] MCH (RBC) [Entitic mass] 26.4 pg Normal 26.0-34.0 [facility] Comment on above: Order Comment: Speci men Type: BLOOD SPECIMEN [facility] Address: [address] [place] [address] Performed By: #### 5 7021-8 #### [facility] CLIA [id number] [address] OF [facility] MCHC (RBC) [Mass/Vol] 30.8 g/dL Normal 30.5-36.0 [facility] Comment on above: Order Comment: Speci men Type: BLOOD SPECIMEN [facility] Address: [address] [place] [address] Performed By: #### 5 7021-8 #### [facility] CLIA [id number] [address] MCV (RBC) [Entitic vol] 85.9 fL Normal 80.0-100.0 [facility] Comment on above: Order Comment: Speci men Type: BLOOD SPECIMEN [facility] Address: [address] [place] [address] Performed By: #### 5 7021-8 #### [facility] CLIA [id number] [address] Monocytes (Bld) [#/Vol] 0.06 10*3/uL Normal <0.87 [facility] Comment on above: Order Comment: Speci men Type: BLOOD SPECIMEN [facility] Address: [address] [place] [address] Performed By: #### 5 7021-8 #### [facility] CLIA [id number] [address] Monocytes/100 WBC (Bld) 1.2 % Normal [facility] Comment on above: Order Comment: Speci men Type: BLOOD SPECIMEN [facility] Address: [address] [place] [address] Performed By: #### 5 7021-8 #### [facility] CLIA [id number] [address] [place] Neutrophils (Bld) [#/Vol] 4.76 10*3/uL Normal 1.45-7.50 [facility] Comment on above: Order Comment: Speci men Type: BLOOD SPECIMEN [facility] Address: [address] [place] [address] Performed By: #### 5 7021-8 #### [facility] CLIA [id number] [address] STATES [facility] Neutrophils/100 WBC (Bld) 92.0 % Normal [facility] Comment on above: Order Comment: Speci men Type: BLOOD SPECIMEN [facility] Address: [address] [place] [address] Performed By: #### 5 7021-8 #### [facility] CLIA [id number] [address] Nucleated RBC (Bld) [#/Vol] 10*3/uL Normal <0.01 [facility] Comment on above: Order Comment: Speci men Type: BLOOD SPECIMEN [facility] Address: [address] [place] [address] Performed By: #### 5 7021-8 #### [facility] CLIA [id number] [address] Nucleated RBC/100 WBC (Bld) [Ratio] 0.0 /100 WBC Normal [facility] Comment on above: Order Comment: Speci men Type: BLOOD SPECIMEN [facility] Address: [address] [place] [address] Performed By: #### 5 7021-8 #### [facility] CLIA [id number] [address] Platelet mean volume (Bld) [Entitic vol] 9.0 fL Normal 9.0-12.7 [facility] Comment on above: Order Comment: Speci men Type: BLOOD SPECIMEN Ordering Facility: [facility] Address: [address] [id number] Performed By: #### 5 7021-8 #### [facility] CLIA [id number] [address] [place] Platelets (Bld) [#/Vol] 286 10*3/uL Normal 150-400 [facility] Comment on above: Order Comment: Speci men Type: BLOOD SPECIMEN Ordering Facility: [facility] Address: [address] [place] [address] Performed By: #### 5 7021-8 #### [facility] CLIA [id number] [address] [place] RBC (Bld) [#/Vol] 4.69 10*6/uL Normal 3.90-5.20 [facility] Comment on above: Order Comment: Speci men Type: BLOOD SPECIMEN Ordering Facility: [facility] Address: [address] [place] [address] Performed By: #### 5 7021-8 #### [facility] CLIA [id number] [address] [place] WBC (Bld) [#/Vol] 5.17 10*3/uL Normal 3.70-11.00 [facility] Comment on above: Order Comment: Speci men Type: BLOOD SPECIMEN Ordering Facility: [facility] Address: [address] [place] [address] Performed By: #### 5 7021-8 #### [facility] CLIA [id number] [address] [place] ECG COMPLETEon 11-17-2023 ECG COMPLETE Ventricular Rate : 1 15 BPM Atrial Rate : 115 BPM P-R Interval : 158 ms QRS Duration : 74 ms Q-T Interval : 312 ms QTC Calculation(Bazett) : 431 ms Calculated P [place] : 94 degrees Calculated R [place] : 84 degrees Calculated T [place] : 88 degrees SINUS TACHYCARDIA RIGHT ATRIAL ENLARGEMENT MINIMAL VOLTAGE CRITERIA FOR LVH, MAY BE NORMAL VARIANT BORDERLINE ECG NO PREVIOUS ECGS AVAILABLE Confirmed by MD BLAND GREGORY () on 11/18/2023 7:35:32 AM NAME : CINTHIA GUERRERO PID : [id number] : 1960 Gender : Female Race : ORD : [id number] Procedure Date : Nov 17 2023 14:38:04 Edit Date : Nov 18 2023 07:35:34 Diagnosis: SINUS TACHYCARDIA RIGHT ATRIAL ENLARGEMENT MINIMAL VOLTAGE CRITERIA FOR LVH, MAY BE NORMAL VARIANT BORDERLINE ECG NO PREVIOUS ECGS AVAILABLE Confirmed by MD BLAND GREGORY () on 11/18/2023 7:35:32 AM Test Reason : [facility] Location : : [facility] Overread By : MD BLAND GREGORY Edited By : MD BLAND GREGORY Referred By : TEO CRAFT Acquired by : SANDI [facility] HISTORY PHYSICALon HISTORY PHYSICAL HNO ID: [id number] Author: BRIE KAUR PA-C Service: ? Author Type: Physician Dust Collector Treater Type: H&P Filed: 11/17/2023 15:34 Note Text: [...] via [place]. Follows with outside pulm at [facility], Dr. Valery DAVIS in October per pt. Diminished breath sounds bilaterally throughout, no wheezing. SpO2 95% on 2L O2. 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 Pt reports she called traveling freight agent's office because she felt like her breathing [...] large neck Non-male patient STOP-Bang Score: 1 [id number] Score: Age: <65 Sex: female CHF history: No Hypertension history: No Stroke/TIA/thromboembo lism history: No Vascular disease history: No Diabetes history: No [id number] Score: 1 ANESTHESIA FINDINGS: Intubation History: No [...] Initiated: Orders placed by surgeon/surgical service in [facility]. Orders Placed This Encounter Complete [...] currently 12/16/23 i (more content not included)... [facility] 11-16-2023 [facility] Telephone (RADTSA) CINTHIA GUERRERO ([id number]) 1960 F Date Time Provider Department 11/16/23 [...] lung (HCC) [C34.90] Order(s):NM PET/CT SKULL-THIGH SUBSEQUENT [1645583] Order #: [id number] FUTURE CT CHEST W IVCON [[id number]] Order #: [id number] FUTURE [] iv contrast (will be provided [...] Encounter Status:Closed by SILVIA JHA on 12/09/23 [facility] CNАлександр 10-27-2023 CNOV Office Visit (OTOLMN ) CINTHIA GUERRERO ([id number]) 1960 F Date Time Provider Department 10/27/23 [...] IX, X: (more content not included)... Normal [facility] US NECK (POC) HNI USE ONLYon 10-27-2023 [facility] Rad[facility] Study observation (narrative) [facility] CNPNon 09-21-2023 CNPN Telephone (NCCAP) CINTHIA GUERRERO ([id number]) 1960 F Date Time Provider Department 09/21/23 ABDI [place] During your visit today, we recorded the following information about you: Rodney Rinaldi 09/21/2023 7:17 AM Signed Abdi Israel MD Stock, Khushboo Linda MD, MD Cc: Anita Pressley LPN; Silvia Jha, LUCIE; Rodney Rinaldi [place] Dr. Mcintyre - I appreciate the update [...] Fully Assessed Reason for Visit: Appointment Confirmation [3501] Primary Visit Diagnosis:Non-small cell cancer of left lung (HCC) [C34.92] Other Visit Diagnosis: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) [C77.0] Order(s):BIOPSY/REMOVA L, LYMPH NODE(S) [62289GHE] Order #: [id number] CONSULT TO ENT [9008] Order #: [id number]: 1 FUTURE Prescriptions as of 09/30/2023 - [...] Encounter Status:Closed by RODNEY RINALDI on 09/30/23 [facility] BRIEF OP NOTon 09-16-2023 BRIEF OP NOT HNO ID: [id number] Author: KHUSHBOO MCINTYRE MD Service: Radiology Author Type: Physician Type: Brief Op Note Filed: 09/16/2023 11:09 Note Text: Summary: Left cervical lymph node biopsy BRIEF OPERATIVE / PROCEDURE NOTE LOG ID: [id number] SURGERY/PROCEDURE DATE: 09/16/2023 INCISION/PROCEDURE START TIME: 10:42 AM INCISION CLOSE/PROCEDURE END TIME: 11:02 AM SURGEON(S)/PROCEDURALI ST(S) AND DEPUTY MANAGER(S): Surgeon(s) and Role: * Khushboo Mcintyre MD, [...] DATE: September 16, 2023 TIME: 11:06 AM [facility] NURSING PROGon 09-16-2023 NURSING PROG HNO ID: [id number] Author: YAKELIN REILLY RN Service: ? Author Type: Registered Nurse Type: Nursing Progress Note Filed: 09/17/2023 08:20 Note Text: Completed post procedure phone call. Omaira is feeling well and has returned to her baseline diet and activity. Omaira denies questions or concerns related to her biopsy appointment on 09/16/23 and had no surgical site concerns. Normal [facility] PT EDon 09-16-2023 PT ED HNO ID: [id number] Author: RASHID HOWELL RN Service: ? Author [...] RN In Department: HOSP MAIN FB36 Normal [facility] SURGICAL PATHOLOGYon 024 CASE REPORT Normal [facility] Comment on above: Order Comment: Speci men Type: TISSUE SPECIMENOrdering Facility: [facility] Address: [address] [place] [address] Result Comment: Surg ical Pathology Report Case: [id number] Authorizing Provider: Khushboo Mcintyre MD, MD Collected: 09/16/2023 10:48 AM Ordering Location: [place] [address] Received: 09/16/2023 04:42 PM Pathologist: Tucker Mulligan V, MD Specimen: Lymph Node, Biopsy, left level 5 Performed By: #### S ####[facility] LABCLIA [id number] [address] [place] CLINICAL HISTORY history of lung ca Normal [facility] Comment on above: Order Comment: Speci men Type: TISSUE SPECIMENOrdering Facility: [facility] Address: [address] [place] [address] Performed By: #### S ####[facility] LABCLIA [id number] [address] OF [facility] DIAGNOSIS COMMENT Normal [facility] Comment on above: Order Comment: Speci men Type: TISSUE SPECIMENOrdering Facility: [facility] Address: [address] [place] [address] Result Comment: Immu nohistochemical stains were performed [...] been determined by the performing laboratory within [facility]???s [facility] Pathology and Laboratory Medicine Department ([facility], [facility], [facility], [facility], [facility], [facility], or [facility]) in a manner consistent with CLIA requirements. One or more of these tests have not been cleared or approved by the FDA. [facility] is regulated under CLIA as qualified to perform high-complexity testing. These tests are used for clinical purposes. They should not be regarded as investigational or for research. Positive and negative controls stain appropriately. Performed By: #### S ####[facility] LABCLIA [id number] [address] [place] FINAL DIAGNOSIS Normal [facility] Comment on above: Order Comment: Speci men Type: TISSUE SPECIMENOrdering Facility: [facility] Address: [address] [place] [address] Result Comment: Lymp h node, left level 5, biopsy: - Fragments of lymphoid tissue; negative for neoplasm (see comment). OK/ 09/17/2023 Performed By: #### S ####[facility] LABCLIA [id number] [address] OF [facility] FINAL PERFORMING LAB Normal [facility] Comment on above: Order Comment: Speci men Type: TISSUE SPECIMENOrdering Facility: [facility] Address: [address] [place] [address] Result Comment: Diag nostic interpretation performed at [facility], [address] [place] [address] CLIA# [id number] Histology Assistant: Axel Romano M.D. Performed By: #### S ####[facility] LABIA [id number] [address] [place] GROSS DESCRIPTION Normal [facility] Comment on above: Order Comment: Speci men Type: TISSUE SPECIMENOrdering Facility: [facility] Address: [address] [place] [address] Result Comment: A. L ymph Node, Biopsy Received in formalin are multiple segments of cylindrical tissue 1.3 x 0.2 x 0.1 cm, carcamo and of a soft and friable consistency. Totally submitted in one cassette. Gross examination performed at [address] September 16, 2023 7:23 PM Performed By: #### S ####[facility] LABCLIA [id number] [id number] [address] [place] US BIOPSY CERVICAL LYMPH NOD Archie 09-16-2023 US BIOPSY CERVICAL LYMPH NODE * * *Final Report* * * DATE OF EXAM: Sep 16 2023 2:45PM [facility] - [place] BIOPSY CERVICAL LYMPH NODE [...] lung cancer. STAFF RADIOLOGIST: Dr. Lopez Mcintyre DEPUTY MANAGER(S): None CONSENT: Informed consent was obtained for this procedure. Details of informed consent can be found in [facility] under the consent tab. TIME [...] performed by the: attending radiologist, without an histology assistant. The attending radiologist performed the following [...] IMPRESSION: ULTRASOUND GUIDED BIOPSY DESCRIBED v 05/25/18 Refrigerated Cargo Clerk: PSCB Transcribe Date/Time: Sep 16 2023 4:33P Dictated by : KHUSHBOO MCINTYRE MD This examination was interpreted and the report reviewed and electronically signed by: KHUSHBOO MCINTYRE MD on Sep 20 2023 4:11PM EST [id number] Normal [facility] CBC panel Auto (Bld)on 09-13 Erythrocyte distribution width (RBC) [Ratio] 13.2 % Normal 11.5-15.0 [facility] Comment on above: Order Comment: Speci men Type: BLOOD SPECIMENOrdering Facility: [facility] Address: [address] [place] [address] Performed By: #### 5 8410-2 ####[facility] LABCLIA [id number] [place] [address] Hematocrit (Bld) [Volume fraction] 38.5 % Normal 36.0-46.0 [facility] Comment on above: Order Comment: Speci men Type: BLOOD SPECIMENOrdering Facility: [facility] Address: [address] [place] [address] Performed By: #### 5 8410-2 ####[facility] LABCLIA [id number] [place] [address] Hemoglobin (Bld) [Mass/Vol] 11.8 g/dL Normal 11.5-15.5 [facility] Comment on above: Order Comment: Speci men Type: BLOOD SPECIMENOrdering Facility: [facility] Address: [address] [place] [address] Performed By: #### 5 8410-2 ####[facility] LABCLIA [id number] [place] [address] MCH (RBC) [Entitic mass] 27.2 pg Normal 26.0-34.0 [facility] Comment on above: Order Comment: Speci men Type: BLOOD SPECIMENOrdering Facility: [facility] Address: [address] [place] [address] Performed By: #### 5 8410-2 ####[facility] LABCLIA [id number] [place] [address] MCHC (RBC) [Mass/Vol] 30.6 g/dL Normal 30.5-36.0 [facility] Comment on above: Order Comment: Speci men Type: BLOOD SPECIMENOrdering Facility: [facility] Address: [address] [place] [address] Performed By: #### 5 8410-2 ####[facility] LABCLIA [id number] [place] [address] MCV (RBC) [Entitic vol] 88.7 fL Normal 80.0-100.0 [facility] Comment on above: Order Comment: Speci men Type: BLOOD SPECIMENOrdering Facility: [facility] Address: [address] [place] [address] Performed By: #### 5 8410-2 ####[facility] LABIA [id number] [place] [address] Nucleated RBC (Bld) [#/Vol] 10*3/uL Normal <0.01 [facility] Comment on above: Order Comment: Speci men Type: BLOOD SPECIMENOrdering Facility: [facility] Address: [address] [place] [address] Performed By: #### 5 8410-2 ####[facility] LABIA [id number] [place] [address] Platelet mean volume (Bld) [Entitic vol] 8.9 fL Low 9.0-12.7 [facility] Comment on above: Order Comment: Speci men Type: BLOOD SPECIMENOrdering Facility: [facility] Address: [address] [place] [address] Performed By: #### 5 8410-2 ####[facility] LABIA [id number] [place] [address] Platelets (Bld) [#/Vol] 288 10*3/uL Normal 150-400 [facility] Comment on above: Order Comment: Speci men Type: BLOOD SPECIMENOrdering Facility: [facility] Address: [address] [place], [place] [address] Performed By: #### 5 8410-2 ####[facility] LABIA [id number] [place] [address] RBC (Bld) [#/Vol] 4.34 10*6/uL Normal 3.90-5.20 [facility] Comment on above: Order Comment: Speci men Type: BLOOD SPECIMENOrdering Facility: [facility] Address: [address] [place], [place] [address] Performed By: #### 5 8410-2 ####[facility] LABIA [id number] [place] [address] WBC (Bld) [#/Vol] 7.28 10*3/uL Normal 3.70-11.00 [facility] Comment on above: Order Comment: Speci men Type: BLOOD SPECIMENOrdering Facility: [facility] Address: [address] [place] [address] Performed By: #### 5 8410-2 ####[facility] LABIA [id number] [place] [address] NURSING PROGon 09-14-2023 NURSING PROG HNO ID: [id number] Author: YAKELIN ONOFRE LPN Service: ? Author Type: LICENSED NURSE Type: Nursing Progress Note Filed: 09/14/2023 10:55 Note Text: Pre- e instructions: Address: [address] [place] [address] Contacted patient and confirmed appt. for biopsy scheduled on 09/16/23, at [facility]. Diet: Procedure to be done with local anesthetic, you may eat, drink and take medications as prescribed the day of this procedure. Medications: IF ok with your Prescribing Provider: RADIOLOGY RECOMMENDS THESE MEDICATION RESTRICTIONS : None Labs: Lab work needs to be drawn by 09/15/23 at any [facility]. Arrival: Please bring your Photo ID and Insurance Card. A general consent may need to be signed. Arrival at 8:30am to desk QB-1 ([facility]) and check in for your procedure. Scout Sniper/Transportation: Scout Sniper not necessary Written instructions provided to patient via Daojia If you have any questions please call [phone] [facility] Telephone (IRRFV) LIZETHCINTHIA Capone ([id number]) 1960 F Date Time Provider Department 09/08/23 ABDI ISRAEL IRRFV During your visit today, we recorded the following information about you: Chloe Nicole 09/08/2023 10:45 AM Signed RADIOLOGY CALL CENTER INTAKE DATE: 09/08/2023 TIME: 10:44am REQUESTING STAFF: Abdi Israel MD PHONE/PAGER: [phone] SPECIFICS OF THE REQUEST:Cervical lymph node bx SPECIAL REQUESTS: TISSUE SAMPLE, LABWORK: N/A IS THIS REQUEST PART OF A RESEARCH PROTOCOL: No MEDICAL DIAGNOSIS: Malignant neoplasm of unspecified part of unspecified bronchus or lung (HCC) [C34.90] TYPE AND DATE OF THE EXAM THAT IS THE BASIS OF THE REQUEST: PET 09/01/2023 IMAGING: [facility] Note to all persons requesting biopsies: All biopsy requests will be scheduled as quickly as possible, based on the clinical urgency, availability of appointment times, the need to hold anti-thrombolytic therapy (aspirin, blood thinners) and the patient?s schedule, including the need for an available yard truck driver. If a percutaneous biopsy or drainage is [...] this procedure: intermediate-high risk. Reference from [facility]: https://ccf.policyLightera .com/dotNet/documents/ ?dfzhb=70185 STAFF SIGNATURE: Osito Galicia MD DATE: September [...] PEDIATRIC ASTHMA Inhale (more content not included)... [facility] CNPN Telephone (NCCAP) CINTHIA GUERRERO ([id number]) 1960 F Date Time Provider Department 09/08/23 ABDI ISRAEL During your visit today, we recorded the following information about you: Rodney Rinaldi 09/08/2023 7:24 AM Signed Abdi Israel MD Graves, Ariana, LPN Cc: Silvia Jha, RN; Rodney Rinaldi Please set Ms. Guerrero up for an US guided biopsy of one of the lymph nodes in the neck seen on PET CT at either [facility] or [facility]. Thanks! Abdi Nicolas MD 09/08/2023 9:51 AM [...] Encounter Status:Closed by RODNEY RINALDI on 09/14/23 [facility] CONSULT PROGon 09-01-2023 CONSULT PROG HNO ID: [id number] Author: STACIA IRVING RN Service: ? Author [...] September 01, 2023 TIME: 12:54 PM Normal [facility] PET/CT SKULL-THIGH SUBQon 09-01-2023 NM PET/CT [...] * Radiopharmaceutical Dose: 6.6 mCi * Radiopharmaceutical: G60-Pkgxykocwidxggivbs (FDG) COMPARISON: PET/CT 03/07/2022 CORRELATION: CT 08/13/23 RESULT: REFERENCES: SUV reference values: * Blood pool (descending aorta) activity: SUVmax 1.8 * Background liver activity: SUVmax 2.2; SUVmean 1.6 Tile Inspector (topogram) images: No additional findings Notes and [...] any questions regarding this interpretation, please call [phone]. If you are unable to reach us at the number above, please feel free to contact [facility] eRadiology at [phone]. [id number] Normal [facility] CNPNon 08-14-2023 CNPN Telephone (RADTSA) LIZETHCINTHIA ONTIVEROS ([id number]) 1960 F Date Time Provider Department 08/14/23 BADI ISRA[place] During your visit today, we recorded the following information about you: Silvia Jha RN 08/14/2023 9:34 AM Signed Pt called in to let us know she had a CT at [facility] ordered per Dr Kenyon yesterday. He called her today to let her know that there was something concerning and he wanted her to contact our office. CT report printed from [facility] and images requested. Dr Israel- please [...] Known Allergies) Date Reviewed: 05/25/2023 Reviewed by: Ainta Pressley LPN - Fully Assessed Reason for Visit: Patient Update [1234] Primary Visit Diagnosis:Malignant neoplasm of unspecified part of unspecified bronchus or lung (HCC) [C34.90] Order(s):NM PET/CT SKULL-THIGH SUBSEQUENT [[id number]] Order #: [id number] FUTURE Prescriptions as of 08/18/2023 - iv [...] Encounter Status:Closed by SILVIA JHA on 08/18/23 [facility] CNOVon 05-25-2023 CNOV Office Visit (RADTSA ) CINTHIA GUERRERO ([id number]) 1960 F Date Time Provider Department 05/25/23 [...] COPD, who is diagnosed with Stage IA3, yC2tK2O0, non-small cell lung cancer arising from a [...] remains on supplemental oxygen at 2 L/min xuemsc-vwf-naciz and continues on Pulmicort and albuterol rescue inhaler. He denies cough or hemoptysis or chest pain or difficulty swallowing today. She does note fatigue with stable appetite and hydration. 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 She had repeat CT imaging of the [...] which included preparing to see the patient, bpzk-ht-waxv patient care, and counseling and educating the patient/family/careg (more content not included)... Normal [facility] CNPNon 05-20-2023 CNPN Telephone (RADTSA) CINTHIA GUERRERO ([id number]) 1960 F Date Time Provider Department 05/20/23 ABDI ISRA[place] During your visit today, we recorded the following information about you: Silvia Jha, LUCIE 05/20/2023 9:55 AM Signed Pt called in and was admitted to [facility] last week. They did CT Chest. She has been waiting on insurance approval for a chest CT and will not need one now. She would like follow up arranged. Reports printed from [facility] and images requested. PSS- please call pt [...] Status:Closed by SILVIA JHA on 05/20/23 Normal [facility] Complete Blood Count Auto Di ffon 05-15-2023 Basophils (Bld) [#/Vol] 0.0 10*3/uL Normal 0.0-0.2 [facility] Comment on above: Result Comment: PERF ORMED BY: [facility] [address] [place] [address] PATHOLOGIST [employer] ARCHITECT JASMEET LIN M.D. Performed By: #### C MP, CBC #### [facility] [address] [place] [address] [place] Basophils/100 WBC (Bld) 0.3 % Normal . [facility] Comment on above: Performed By: #### C MP, CBC #### [facility] [address] [place] [address] [place] Eosinophils (Bld) [#/Vol] 0.0 10*3/uL Normal 0.0-0.45 [facility] Comment on above: Performed By: #### C MP, CBC #### [facility] [address] [place] [address] [place] Eosinophils/100 WBC (Bld) 0.0 % Normal . [facility] Comment on above: Performed By: #### C MP, CBC #### [address] Erythrocyte distribution width (RBC) [Ratio] 13.5 % Normal 11.9-15.3 [facility] Comment on above: Performed By: #### C MP, CBC #### [place] [address] [place] Hematocrit (Bld) [Volume fraction] 42.0 % Normal 34.0-46.4 [facility] Comment on above: Performed By: #### C MP, CBC #### [place] [address] [place] Hemoglobin (Bld) [Mass/Vol] 13.9 g/dL Normal 11.8-15.4 [facility] Comment on above: Performed By: #### C MP, CBC #### [place] [address] [place] Lymphocytes (Bld) [#/Vol] 0.6 10*3/uL Low 1.00-4.8 [facility] Comment on above: Performed By: #### C MP, CBC #### [place] [address] [place] Lymphocytes/100 WBC (Bld) 8.4 % Normal . [facility] Comment on above: Performed By: #### C MP, CBC #### [facility] [address] MCH (RBC) [Entitic mass] 28.0 pg Normal 24.7-34.3 [facility] Comment on above: Performed By: #### C MP, CBC #### [address] MCV (RBC) [Entitic vol] 84.8 fL Normal 80-100 [facility] Comment on above: Performed By: #### C MP, CBC #### [address] Mean Corpuscular HGB Conc 33.0 g/dL Normal 32.0-35.0 [facility] Comment on above: Performed By: #### C MP, CBC #### [address] Monocytes (Bld) [#/Vol] 0.4 10*3/uL Normal 0.0-0.8 [facility] Comment on above: Performed By: #### C MP, CBC #### [address] Monocytes/100 WBC (Bld) 4.9 % Normal . [facility] Comment on above: Performed By: #### C MP, CBC #### [address] Neutrophils (Bld) [#/Vol] 6.6 10*3/uL Normal 1.8-7.7 [facility] Comment on above: Performed By: #### C MP, CBC #### [address] Neutrophils/100 WBC (Bld) 86.4 % Normal . [facility] Comment on above: Performed By: #### C MP, CBC #### [address] NRBC% 0.0 /100{WBC} Normal 0-0.5 [facility] Comment on above: Performed By: #### C MP, CBC #### [address] [place] [address] [place] Platelet mean volume (Bld) [Entitic vol] 7.3 fL Normal 6.3-10.7 [facility] Comment on above: Performed By: #### C MP, CBC #### [facility] [address] Platelets (Bld) [#/Vol] 378 10*3/uL Normal 150-450 [facility] Comment on above: Performed By: #### C MP, CBC #### [facility] [address] RBC (Bld) [#/Vol] 4.95 10*6/uL Normal 3.60-5.00 [facility] Comment on above: Performed By: #### C MP, CBC #### [address] WBC (Bld) [#/Vol] 7.6 10*3/uL Normal 3.8-11.6 [facility] Comment on above: Performed By: #### C MP, CBC #### [address] Comprehensive Metabolic Pane shelby 05-15-2023 Albumin [Mass/Vol] 4.0 g/dL Normal 3.5-5.7 [facility] Comment on above: Performed By: #### C MP, CBC ####[facility] [place], [place] [id number] [facility] Albumin/Globulin [Mass ratio] 1.3 {ratio} Normal [facility] Comment on above: Performed By: #### C MP, CBC ####[facility] [place] [address] [facility] ALP [Catalytic activity/Vol] 68 U/L Normal 34-104 [facility] Comment on above: Performed By: #### C MP, CBC ####[facility] [place] [id number] [facility] ALT [Catalytic activity/Vol] 13 U/L Normal 7-52 [facility] Comment on above: Performed By: #### C MP, CBC ####[facility] [address] [place] [address] [facility] Anion gap [Moles/Vol] 6.9 mmol/L Normal 6.0-15.0 [facility] Comment on above: Performed By: #### C MP, CBC ####[facility] [place] [address] [facility] AST [Catalytic activity/Vol] 16 U/L Normal 13-39 [facility] Comment on above: Performed By: #### C MP, CBC ####[place] [address] [place] [address] [facility] Bilirubin [Mass/Vol] 0.4 mg/dL Normal 0.3-1.0 [facility] Comment on above: Performed By: #### C MP, CBC ####[address] [place] [address] [facility] Calcium [Mass/Vol] 9.7 mg/dL Normal 8.6-10.3 [facility] Comment on above: Performed By: #### C MP, CBC ####[address] [address] [place] [address] [facility] Chloride [Moles/Vol] 90 mmol/L Low 98-107 [facility] Comment on above: Performed By: #### C MP, CBC ####[address] [place] [address] [facility] CO2 [Moles/Vol] 44.4 mmol/L High 21.0-31.0 [facility] Comment on above: Performed By: #### C MP, CBC ####[address] [address] [place] [address] [facility] Creatinine [Mass/Vol] 0.48 mg/dL Low 0.60-1.20 [facility] Comment on above: Performed By: #### C MP, CBC ####[address] [place] [address] [facility] Creatinine Clr Calc Pharmacy 76.17 Normal [facility] Comment on above: Result Comment: PERF ORMED BY: [facility] [address] [place] [id number] PATHOLOGIST [employer] ARCHITECT JASMEET LIN M.D. Performed By: #### C MP, CBC ####[address] [place] [address] [place] GFR/1.73 sq M.predicted MDRD (S/P/Bld) [Vol rate/Area] mL/min/{1.73_m2} [facility] Comment on above: Performed By: #### C MP, CBC ####[address] [address] [facility] Globulin (S) [Mass/Vol] 3.1 g/dL [facility] Comment on above: Performed By: #### C MP, CBC ####[address] [place] [address] [facility] Glucose [Mass/Vol] 148 mg/dL High 70-100 [facility] Comment on above: Result Comment: [facility] [place] Glucose Reference Range is dependent on time and content of last meal. Glucose of more than 200 mg/dL in a nonstressed, ambulatory subject supports the diagnosis of Diabetes Mellitus. ADA recommended reference range Performed By: #### C MP, CBC ####[address] [address] [facility] Potassium [Moles/Vol] 4.3 mmol/L Normal 3.5-5.1 [facility] Comment on above: Performed By: #### C MP, CBC ####[address] [address] [facility] Protein [Mass/Vol] 7.1 g/dL Normal 6.4-8.9 [facility] Comment on above: Performed By: #### C MP, CBC ####[address] [address] [facility] Sodium [Moles/Vol] 137 mmol/L Normal 136-145 [facility] Comment on above: Performed By: #### C MP, CBC ####[address] [address] [facility] Urea nitrogen [Mass/Vol] 13 mg/dL Normal 7-25 [facility] Comment on above: Performed By: #### C MP, CBC ####[facility] [address] [place] [id number] [facility] CT angio chest PE protocolon 05-14-2023 CT angio chest PE protocol [facility] [place] [address] [place] [id number] Scan Report Signed Patient: Cinthia Guerrero MR#: [id number] 881 : 1960 Acct:[id number] Age/Sex: 62 / F ADM Date: 05/14/23 Loc: Room: [address] [place] [address] Type: ADM IN Attending Dr: Cassandra Andersen [...] Wong Byrd M.D.05/14/2023 8:07 AM Dictation Location: [place] [address] Transcribed By: [facility] 05/14/23806 Dictated By: Wong Byrd DO 05/14/23801 Signed By: 05/14/23806 Normal [facility] B-Type Natriuretic Peptideon 05-13-2023 Natriuretic peptide B (Bld) [Mass/Vol] 25.0 pg/mL Normal 5-100 [facility] Comment on above: Result Comment: PERF ORMED BY: [facility] [address] [place] [address] PATHOLOGIST [employer] ARCHITECT JASMEET LIN M.D. Performed By: #### B GRAIN MIXER #### [address] COVID-19 / Flu A/B / RSV [...] Cepheid Disclaimer revoked sooner. PERFORMED BY: [address] [place] [phone] PATHOLOGIST [employer] ARCHITECT JASMEET LIN M.D. Normal [facility] Comment on above: Performed By: #### C OVID19 FLU RSV, CEPHEID NEG ####[address] [address] [facility] Cepheid COVID PCR Negativeon 05-13-2023 SARS-CoV-2 (COVID-19) RNA KRUNAL+probe Ql (Unsp spec) Negative Normal Negative [facility] Comment on above: Result Comment: This is a duplicate Cepheid Xpert Xpress CoV-2/Flu/RSV Plus RNA by RT-PCR result to be used for statistical tracking purpose only. PERFORMED BY: [address] [place] [id number] PATHOLOGIST [employer] ARCHITECT JASMEET LIN M.D. Performed By: #### C OVID19 FLU RSV, CEPHEID NEG ####[address] [address] [facility] Complete Blood Count Auto Di ffon 05-13-2023 Basophils (Bld) [#/Vol] 0.0 10*3/uL Normal 0.0-0.2 [facility] Comment on above: Result Comment: PERF ORMED BY: [address] [place] [id number] PATHOLOGIST [employer] ARCHITECT JASMEET LIN M.D. Performed By: #### H S TROP, TSH3 wRFLX, CMP, CBC #### [address] Basophils/100 WBC (Bld) 0.4 % Normal . [facility] Comment on above: Performed By: #### H S TROP, TSH3 wRFLX, CMP, CBC #### [address] Eosinophils (Bld) [#/Vol] 0.0 10*3/uL Normal 0.0-0.45 [facility] Comment on above: Performed By: #### H S TROP, TSH3 wRFLX, CMP, CBC #### [address] Eosinophils/100 WBC (Bld) 0.1 % Normal . [facility] Comment on above: Performed By: #### H S TROP, TSH3 wRFLX, CMP, CBC #### [address] Erythrocyte distribution width (RBC) [Ratio] 13.5 % Normal 11.9-15.3 [facility] Comment on above: Performed By: #### H S TROP, TSH3 wRFLX, CMP, CBC #### [address] Hematocrit (Bld) [Volume fraction] 44.7 % Normal 34.0-46.4 [facility] Comment on above: Performed By: #### H S TROP, TSH3 wRFLX, CMP, CBC #### [address] Hemoglobin (Bld) [Mass/Vol] 14.9 g/dL Normal 11.8-15.4 [facility] Comment on above: Performed By: #### H S TROP, TSH3 wRFLX, CMP, CBC #### [address] Lymphocytes (Bld) [#/Vol] 1.4 10*3/uL Normal 1.00-4.8 [facility] Comment on above: Performed By: #### H S TROP, TSH3 wRFLX, CMP, CBC #### [address] Lymphocytes/100 WBC (Bld) 14.2 % Normal . [facility] Comment on above: Performed By: #### H S TROP, TSH3 wRFLX, CMP, CBC #### [address] MCH (RBC) [Entitic mass] 28.4 pg Normal 24.7-34.3 [facility] Comment on above: Performed By: #### H S TROP, TSH3 wRFLX, CMP, CBC #### [address] MCV (RBC) [Entitic vol] 85.1 fL Normal 80-100 [facility] Comment on above: Performed By: #### H S TROP, TSH3 wRFLX, CMP, CBC #### [address] Mean Corpuscular HGB Conc 33.4 g/dL Normal 32.0-35.0 [facility] Comment on above: Performed By: #### H S TROP, TSH3 wRFLX, CMP, CBC #### [address] Monocytes (Bld) [#/Vol] 0.8 10*3/uL Normal 0.0-0.8 [facility] Comment on above: Performed By: #### H S TROP, TSH3 wRFLX, CMP, CBC #### [place] [address] [place] Monocytes/100 WBC (Bld) 17.56 % Normal 0.00-20.00 [facility] Comment on above: Performed By: #### H S TROP, TSH3 wRFLX, CMP, CBC #### [address] Monocytes/100 WBC (Bld) 7.6 % Normal . [facility] Comment on above: Performed By: #### H S TROP, TSH3 wRFLX, CMP, CBC #### [facility] [address] [place] [address] Neutrophils (Bld) [#/Vol] 7.9 10*3/uL High 1.8-7.7 [facility] Comment on above: Performed By: #### H S TROP, TSH3 wRFLX, CMP, CBC #### [address] Neutrophils/100 WBC (Bld) 77.7 % Normal . [facility] Comment on above: Performed By: #### H S TROP, TSH3 wRFLX, CMP, CBC #### [address] NRBC% 0.1 /100{WBC} Normal 0-0.5 [facility] Comment on above: Performed By: #### H S TROP, TSH3 wRFLX, CMP, CBC #### [address] Platelet mean volume (Bld) [Entitic vol] 7.4 fL Normal 6.3-10.7 [facility] Comment on above: Performed By: #### H S TROP, TSH3 wRFLX, CMP, CBC #### [address] Platelets (Bld) [#/Vol] 405 10*3/uL Normal 150-450 [facility] Comment on above: Performed By: #### H S TROP, TSH3 wRFLX, CMP, CBC #### [address] RBC (Bld) [#/Vol] 5.25 10*6/uL High 3.60-5.00 [facility] Comment on above: Performed By: #### H S TROP, TSH3 wRFLX, CMP, CBC #### [address] WBC (Bld) [#/Vol] 10.2 10*3/uL Normal 3.8-11.6 [facility] Comment on above: Performed By: #### H S TROP, TSH3 wRFLX, CMP, CBC #### [facility] [address] Comprehensive Metabolic Pane [place] 05-13-2023 Albumin [Mass/Vol] 4.2 g/dL Normal 3.5-5.7 [facility] Comment on above: Performed By: #### H S TROP, TSH3 wRFLX, CMP, CBC #### [facility] [address] Albumin/Globulin [Mass ratio] 1.2 {ratio} Normal [facility] Comment on above: Performed By: #### H S TROP, TSH3 wRFLX, CMP, CBC #### [address] ALP [Catalytic activity/Vol] 79 U/L Normal 34-104 [facility] Comment on above: Performed By: #### H S TROP, TSH3 wRFLX, CMP, CBC #### [address] ALT [Catalytic activity/Vol] 15 U/L Normal 7-52 [facility] Comment on above: Performed By: #### H S TROP, TSH3 wRFLX, CMP, CBC #### [address] Anion gap [Moles/Vol] 12.3 mmol/L Normal 6.0-15.0 [facility] Comment on above: Performed By: #### H S TROP, TSH3 wRFLX, CMP, CBC #### [address] AST [Catalytic activity/Vol] 17 U/L Normal 13-39 [facility] Comment on above: Performed By: #### H S TROP, TSH3 wRFLX, CMP, CBC #### [address] Bilirubin [Mass/Vol] 0.3 mg/dL Normal 0.3-1.0 [facility] Comment on above: Performed By: #### H S TROP, TSH3 wRFLX, CMP, CBC #### [facility] [address] Calcium [Mass/Vol] 10.0 mg/dL Normal 8.6-10.3 [facility] Comment on above: Performed By: #### H S TROP, TSH3 wRFLX, CMP, CBC #### [facility] [address] Chloride [Moles/Vol] 89 mmol/L Low 98-107 [facility] Comment on above: Performed By: #### H S TROP, TSH3 wRFLX, CMP, CBC #### [facility] [address] [place] [address] CO2 [Moles/Vol] 41.7 mmol/L High 21.0-31.0 [facility] Comment on above: Performed By: #### H S TROP, TSH3 wRFLX, CMP, CBC #### [facility] [address] [place] [address] Creatinine [Mass/Vol] 0.47 mg/dL Low 0.60-1.20 [facility] Comment on above: Performed By: #### H S TROP, TSH3 wRFLX, CMP, CBC #### [facility] [address] [place] [address] [place] Creatinine Clr Calc Pharmacy 80.11 [facility] Comment on above: Result Comment: PERF ORMED BY: [place] [address] PATHOLOGIST [employer] ARCHITECT JASMEET LIN M.D. Performed By: #### H S TROP, TSH3 wRFLX, CMP, CBC #### [facility] [address] [place] [address] [place] GFR/1.73 sq M.predicted MDRD (S/P/Bld) [Vol rate/Area] mL/min/{1.73_m2} [facility] Comment on above: Performed By: #### H S TROP, TSH3 wRFLX, CMP, CBC #### [facility] [address] [place] [address] [place] Globulin (S) [Mass/Vol] 3.5 g/dL Normal [facility] Comment on above: Performed By: #### H S TROP, TSH3 wRFLX, CMP, CBC #### [address] Glucose [Mass/Vol] 104 mg/dL High 70-100 [facility] Comment on above: Result Comment: [place] Glucose Reference Range is dependent on time and content of last meal. Glucose of more than 200 mg/dL in a nonstressed, ambulatory subject supports the diagnosis of Diabetes Mellitus. ADA recommended reference range Performed By: #### H S TROP, TSH3 wRFLX, CMP, CBC #### [address] Potassium [Moles/Vol] 4.0 mmol/L Normal 3.5-5.1 [facility] Comment on above: Performed By: #### H S TROP, TSH3 wRFLX, CMP, CBC #### [address] Protein [Mass/Vol] 7.7 g/dL Normal 6.4-8.9 [facility] Comment on above: Performed By: #### H S TROP, TSH3 wRFLX, CMP, CBC #### [address] Sodium [Moles/Vol] 139 mmol/L Normal 136-145 [facility] Comment on above: Performed By: #### H S TROP, TSH3 wRFLX, CMP, CBC #### [address] Urea nitrogen [Mass/Vol] 13 mg/dL Normal 7-25 [facility] Comment on above: Performed By: #### H S TROP, TSH3 wRFLX, CMP, CBC #### [address] ECG 12 lead ECGon 05-13-2023 ECG 12 lead ECG [facility] [place] [address] [place] [address] Electrocardiograph Report Signed Patient: Cinthia Guerrero MR#: [id number] 881 : 1960 Acct:[id number] Age/Sex: 62 / F ADM Date: 05/13/23 [...] variant artifact Confirmed by Kd Carver DO ([id number]) on 05/13/2023 7:17:32 PM Referred By: Electronically Signed By:Kd Carver DO Transcribed By: MUS Signed By Kd Carvre DO [id number] Normal [facility] Thyroid Stim Hormone w/Rflxo n 05-13-2023 Thyroid Stim Hormone w/Rflx 0.89 u[iU]/mL Normal 0.45-5.33 [facility] Comment on above: Result Comment: PERF ORMED BY: [place] [address] PATHOLOGIST [employer] ARCHITECT JASMEET LIN M.D. Performed By: #### H S TROP, TSH3 wRFLX, CMP, CBC #### [facility] [address] [place], [place] [id number] [facility] Troponin I High Sensitivityo n 05-13-2023 Troponin I High Sensitivity 3.4 pg/mL Normal 0.0-15.0 [facility] Comment on above: Result Comment: PERF ORMED BY: [place] [address] PATHOLOGIST [employer] ARCHITECT JASMEET LIN M.D. Performed By: #### H S TROP #### [facility] [address] [place] [address] [facility] Troponin I High Sensitivity 3.9 pg/mL Normal 0.0-15.0 [facility] Comment on above: Result Comment: PERF ORMED BY: [place] [address] PATHOLOGIST [employer] ARCHITECT JASMEET LIN M.D. Performed By: #### H S TROP, TSH3 wRFLX, CMP, CBC #### [address] XR chest 2V*on 05-13-2023 XR chest 2V* [facility] [place] [address] [place] [address] XRay Report Signed Patient: Cinthia Guerrero MR#: [id number] 881 : 1960 Acct:[id number] Age/Sex: 62 / F ADM Date: 05/13/23 Loc: ER Room: Type: [facility] ER Attending Dr: Copies to: Stacia [...] Wong Byrd M.D.05/13/2023 8:53 PM Dictation Location: [place] [address] Transcribed By: [facility] 05/13/232052 Dictated By: Wong Byrd DO 05/13/232051 Signed By: 05/13/232052 Normal [facility] CULTURE BLOODon 09-07-2022 Microscopic examination of blood, [...] Trimethoprim/Sulfameth oxazole 20 S F Normal [facility] Comment on above: Performed By: #### B LDCX1 #### [facility] [address] [place] [address] Dr. Geri Pradhan CBC AUTO DIFFon 09-05-2022 BASO # 0.0 103/ul Normal 0.0-0.1 [facility] Comment on above: Performed By: #### C BC #### [facility] [address] [place] [address] Dr. Geri Pradhan Basophils/100 WBC (Bld) 0.2 % Normal 0.2-2.0 [facility] Comment on above: Performed By: #### C BC #### [facility] [address] [place] [address] Dr. Geri Pradhan EO # 0.0 103/ul Normal 0.0-0.7 [facility] Comment on above: Performed By: #### C BC #### [facility] [address] [place] [address] Dr. Geri Pradhan Eosinophils/100 WBC (Bld) 0.0 % Critically low 0.9-7.0 [facility] Comment on above: Performed By: #### C BC #### [facility] [address] [place] [address] Dr. Geri Pradhan Erythrocyte distribution width (RBC) [Ratio] 13.8 % Normal 11.0-15.0 [facility] Comment on above: Performed By: #### C BC #### [facility] [address] [place] [address] Dr. Geri Pradhan Hematocrit (Bld) [Volume fraction] 38.8 % Normal 36.0-48.0 [facility] Comment on above: Performed By: #### C BC #### [facility] [address] [place] [address] [address] Geri Pradhan Hemoglobin (Bld) [Mass/Vol] 11.7 g/dL Critically low 12.0-16.0 [facility] Comment on above: Performed By: #### C BC #### [facility] [address] [place] [address] [address] Geri Pradhan IG # 0.27 10e3/ul Critically high 0.00-0.03 [facility] Comment on above: Performed By: #### C BC #### [facility] [address] [place] [address] Dr. Geri Pradhan IG % 2.9 % Critically high 0.0-0.5 [facility] Comment on above: Performed By: #### C BC #### [facility] [address] [place] [address] Dr. Geri Pradhan LYMPH # 0.4 103/ul Critically low 1.2-3.8 [facility] Comment on above: Performed By: #### C BC #### [facility] [address] [place] [address] Dr. Geri Pradhan Lymphocytes/100 WBC (Bld) 4.4 % Critically low 20.5-60.0 [facility] Comment on above: Performed By: #### C BC #### [facility] [address] [place] [address] Dr. Geri Pradhan MANUAL DIFF REQ NO Normal [facility] Comment on above: Performed By: #### C BC #### [facility] [address] [place] [address] Dr. Geri Pradhan MCH (RBC) [Entitic mass] 26.8 pg Normal 26.7-34.0 [facility] Comment on above: Performed By: #### C BC #### [facility] [address] [place] [address] Dr. Geri Pradhan MCHC (RBC) [Mass/Vol] 30.2 g/dL Normal 29.9-35.2 [facility] Comment on above: Performed By: #### C BC #### [facility] [address] [place] [address] [address] Geri Pradhan MCV (RBC) [Entitic vol] 88.8 fL Normal 81.0-99.0 [facility] Comment on above: Performed By: #### C BC #### [facility] [address] [place] [address] [address] Geri Pradhan MONO # 0.3 103/ul Normal 0.3-0.8 [facility] Comment on above: Performed By: #### C BC #### [facility] [address] [place] [address] [address] Geri Pradhan Monocytes/100 WBC (Bld) 3.6 % Normal 1.7-12.0 [facility] Comment on above: Performed By: #### C BC #### [facility] [address] [place] [address] [address] Geri Pradhan NEUT # 8.2 103/ul Critically high 1.4-6.5 [facility] Comment on above: Performed By: #### C BC #### [facility] [address] [place] [address] [address] Geri Pradhan Neutrophils/100 WBC (Bld) 88.9 % Critically high 43.0-75.0 [facility] Comment on above: Performed By: #### C BC #### [facility] [address] [place] [address] [address] Geri Pradhan Platelet mean volume (Bld) [Entitic vol] 9.1 fL Critically low 9.5-13.5 [facility] Comment on above: Performed By: #### C BC #### [facility] [address] [place] [address] [address] Geri Pradhan PLT 314 103/ul Normal 150-450 [facility] Comment on above: Performed By: #### C BC #### [facility] [address] [place] [address] [address] Geri Pradhan RBC 4.37 106/ul Normal 4.20-5.40 [facility] Comment on above: Performed By: #### C BC #### [facility] [address] [place] [address] [address] Geri Pradhan WBC 9.2 103/ul Normal 4.0-11.0 [facility] Comment on above: Performed By: #### C BC #### [facility] [address] [place] [address] [address] Geri Pradhan PROF 14(COMP METB)on 023 Albumin [Mass/Vol] 2.7 g/dL Critically low 3.4-5.0 [facility] Comment on above: Performed By: #### Gerry INGRAM, CMP #### [facility] [address] [place] [address] [address] Geri Pradhan Albumin/Globulin [Mass ratio] 0.7 {ratio} Normal [facility] Comment on above: Performed By: #### Gerry INGRAM, CMP #### [facility] [address] [place] [address] Dr. Geri Pradhan ALP [Catalytic activity/Vol] 65 U/L Normal 46-116 [facility] Comment on above: Performed By: #### Gerry INGRAM, CMP #### [facility] [address] [place] [address] [address] Geri Pradhan ALT [Catalytic activity/Vol] 23 U/L Normal 14-59 [facility] Comment on above: Performed By: #### Gerry NIGRAM, CMP #### [facility] [address] [place] [address] [address] Geri Pradhan Anion gap [Moles/Vol] 2.0 mmol/L Normal [facility] Comment on above: Performed By: #### Gerry INGRAM, CMP #### [facility] [address] [place] [address] [address] Geri Pradhan AST [Catalytic activity/Vol] 17 U/L Normal 15-37 [facility] Comment on above: Performed By: #### Gerry INGRAM, CMP #### [facility] [address] [place] [address] Dr. Geri Pradhan Bilirubin [Mass/Vol] 0.1 mg/dL Critically low 0.2-1.0 [facility] Comment on above: Performed By: #### Gerry INGRAM, CMP #### [facility] [address] [place] [address] [address] Geri Pradhan Calcium [Mass/Vol] 9.0 mg/dL Normal 8.5-10.1 [facility] Comment on above: Performed By: #### Gerry INGRAM, CMP #### [facility] [address] [place] [address] [address] Geri Pradhan Chloride [Moles/Vol] 99 mmol/L Normal 98-107 [facility] Comment on above: Performed By: #### Gerry INGRAM, CMP #### [facility] [address] [place] [address] [address] Geri Pradhan CO2 [Moles/Vol] 45.3 mmol/L Critically high 21.0-32.0 [facility] Comment on above: Performed By: #### Gerry INGRAM, CMP #### [facility] [address] [place] [address] Dr. Geri Pradhan Creatinine [Mass/Vol] 0.50 mg/dL Critically low 0.55-1.02 [facility] Comment on above: Performed By: #### Gerry INGRAM, CMP #### [facility] [address] [place] [address] Dr. Geri Pradhan EGFR-AF [place] >60 Normal >=60 [facility] Comment on above: Performed By: #### Gerry INGRAM, CMP #### [facility] [address] [address] [address] Geri Pradhan EGFR-NON AF VIETNAMESE >60 Normal >=60 [facility] Comment on above: Performed By: #### Gerry INGRAM, CMP #### [facility] [address] [address] [address] Geri Pradhan Globulin (S) [Mass/Vol] 3.7 g/dL Normal [facility] Comment on above: Performed By: #### Gerry INGRAM, CMP #### [facility] [address] [address] [address] Geri Pradhan Glucose [Mass/Vol] 180 mg/dL Critically high 74-106 [facility] Comment on above: Performed By: #### Gerry INGRAM, CMP #### [facility] [address] [place] [address] Dr. Geri Pradhan Potassium [Moles/Vol] 4.3 mmol/L Normal 3.5-5.1 [facility] Comment on above: Performed By: #### Gerry INGRAM, CMP #### [facility] [address] [place] [address] Dr. Geri Pradhan Protein [Mass/Vol] 6.4 g/dL Normal 6.4-8.2 [facility] Comment on above: Performed By: #### Gerry INGRAM, CMP #### [facility] [address] [place] [address] Dr. Geri Pradhan Sodium [Moles/Vol] 142 mmol/L Normal 136-145 [facility] Comment on above: Performed By: #### Gerry INGRAM, CMP #### [facility] [address] [place] [address] Dr. Geri Pradhan Urea nitrogen [Mass/Vol] 13.0 mg/dL Normal 7.0-18.0 [facility] Comment on above: Performed By: #### Gerry INGRAM, CMP #### [facility] [address] [place] [address] Dr. Geri Pradhan Urea nitrogen/Creatinine [Mass ratio] 26.0 mg/mg Normal [facility] Comment on above: Performed By: #### Gerry INGRAM, CMP #### [facility] [address] [place] [address] Dr. Geri Pradhan THEOPHYLLINEon 09-05-2022 THEOPHYLLINE <2.0 Critically low 10.0-20.0 [facility] Comment on above: Performed By: #### Gerry INGRAM, CMP #### [facility] [address] [place] [address] Dr. Geri Pradhan CBC AUTO DIFFon 09-04-2022 BASO # 0.0 103/ul Normal 0.0-0.1 [facility] Comment on above: Performed By: #### R SPLUS #### [facility] [address] [place] [address] Dr. Geri Pradhan Basophils/100 WBC (Bld) 0.1 % Critically low 0.2-2.0 [facility] Comment on above: Performed By: #### R SPLUS #### [facility] [address] [address] [address] Geri Pradhan EO # 0.0 103/ul Normal 0.0-0.7 [facility] Comment on above: Performed By: #### R SPLUS #### [facility] [address] [address] [address] Geri Pradhan Eosinophils/100 WBC (Bld) 0.0 % Critically low 0.9-7.0 [facility] Comment on above: Performed By: #### R SPLUS #### [facility] [address] [place] [address] Dr. Geri Pradhan Erythrocyte distribution width (RBC) [Ratio] 13.4 % Normal 11.0-15.0 [facility] Comment on above: Performed By: #### R SPLUS #### [facility] [address] [place] [address] Dr. Geri Pradhan Hematocrit (Bld) [Volume fraction] 42.8 % Normal 36.0-48.0 [facility] Comment on above: Performed By: #### R SPLUS #### [facility] [address] [place] [address] Dr. Geri Pradhan Hemoglobin (Bld) [Mass/Vol] 12.8 g/dL Normal 12.0-16.0 [facility] Comment on above: Performed By: #### R SPLUS #### [facility] [address] [place] [address] Dr. Geri Pradhan IG # 0.25 10e3/ul Critically high 0.00-0.03 [facility] Comment on above: Performed By: #### R SPLUS #### [facility] [address] [place] [address] Dr. Geri Pradhan IG % 2.0 % Critically high 0.0-0.5 [facility] Comment on above: Performed By: #### R SPLUS #### [facility] [address] [address] [address] Geri Pradhan LYMPH # 0.4 103/ul Critically low 1.2-3.[address] [facility] Comment on above: Performed By: #### R SPLUS #### [facility] [address] [address] [address] Geri Pradhan Lymphocytes/100 WBC (Bld) 3.6 % Critically low 20.5-60.0 [facility] Comment on above: Performed By: #### R SPLUS #### [facility] [address] [address] [address] Geri Pradhan MANUAL DIFF REQ NO Normal [facility] Comment on above: Performed By: #### R SPLUS #### [facility] [address] [address] [address] Geri Pradhan MCH (RBC) [Entitic mass] 26.8 pg Normal 26.7-34.0 [facility] Comment on above: Performed By: #### R SPLUS #### [facility] [address] [place] [address] Dr. Geri Prahdan MCHC (RBC) [Mass/Vol] 29.9 g/dL Normal 29.9-35.2 [facility] Comment on above: Performed By: #### R SPLUS #### [facility] [address] [place] [address] Dr. Geri Pradhan MCV (RBC) [Entitic vol] 89.5 fL Normal 81.0-99.0 [facility] Comment on above: Performed By: #### R SPLUS #### [facility] [address] [place] [address] Dr. Geri Pradhan MONO # 0.2 103/ul Critically low 0.3-0.[address] [facility] Comment on above: Performed By: #### R SPLUS #### [facility] [address] [place] [address] Dr. Geri Pradhan Monocytes/100 WBC (Bld) 1.9 % Normal 1.7-12.0 [facility] Comment on above: Performed By: #### R SPLUS #### [facility] [address] [address] [address] Geri Pradhan NEUT # 11.4 103/ul Critically high 1.4-6.5 [facility] Comment on above: Performed By: #### R SPLUS #### [facility] [address] [address] [address] Geri Pradhan Neutrophils/100 WBC (Bld) 92.4 % Critically high 43.0-75.0 [facility] Comment on above: Performed By: #### R SPLUS #### [facility] [address] [address] [address] Geri Pradhan Platelet mean volume (Bld) [Entitic vol] 8.9 fL Critically low 9.5-13.5 [facility] Comment on above: Performed By: #### R SPLUS #### [facility] [address] [address] [address] Geri Pradhan PLT 350 103/ul Normal 150-450 [facility] Comment on above: Performed By: #### R SPLUS #### [facility] [address] [address] [address] Geri Pradhan RBC 4.78 106/ul Normal 4.20-5.40 [facility] Comment on above: Performed By: #### R SPLUS #### [facility] [address] [address] [address] Geri Pradhan WBC 12.3 103/ul Critically high 4.0-11.0 [facility] Comment on above: Performed By: #### R SPLUS #### [facility] [address] [address] [address] Geri Pradhan POINT OF CARE GLUCOSEon 05-2 Glucose [Mass/Vol] 142 mg/dL Critically high 74-106 [facility] Comment on above: Performed By: #### P OCGLUC #### [facility] [address] [address] [address] Geri Pradhan Glucose [Mass/Vol] 198 mg/dL Critically high 74-106 [facility] Comment on above: Performed By: #### T JUAN JOSE, CMP #### [facility] [address] [address] [address] Geri Pradhan Glucose [Mass/Vol] 147 mg/dL Critically high 74-106 [facility] Comment on above: Performed By: #### Gerry INGRAM, CMP #### [facility] [address] [address] [address] Geri Pradhan PROF 14(COMP METB)on 023 Albumin [Mass/Vol] 2.9 g/dL Critically low 3.4-5.0 [facility] Comment on above: Performed By: #### Gerry INGRAM, CMP #### [facility] [address] [address] [address] Geri Pradhan Albumin/Globulin [Mass ratio] 0.7 {ratio} Normal [facility] Comment on above: Performed By: #### Gerry INGRAM, CMP #### [facility] [address] [place] [address] Dr. Geri Pradhan ALP [Catalytic activity/Vol] 73 U/L Normal 46-116 [facility] Comment on above: Performed By: #### Gerry INGRAM, CMP #### [facility] [address] [address] [address] Geri Pradhan ALT [Catalytic activity/Vol] 24 U/L Normal 14-59 [facility] Comment on above: Performed By: #### Gerry INGRAM, CMP #### [facility] [address] [address] [address] Geri Pradhan Anion gap [Moles/Vol] 3.2 mmol/L Normal [facility] Comment on above: Performed By: #### Gerry INGRAM, CMP #### [facility] [address] [address] [address] Geri Pradhan AST [Catalytic activity/Vol] 17 U/L Normal 15-37 [facility] Comment on above: Performed By: #### Gerry INGRAM, CMP #### [facility] [address] [address] [address] Geri Pradhan Bilirubin [Mass/Vol] 0.1 mg/dL Critically low 0.2-1.0 [facility] Comment on above: Performed By: #### Gerry INGRAM, CMP #### [facility] [address] [address] [address] Geri Pradhan Calcium [Mass/Vol] 9.4 mg/dL Normal 8.5-10.1 [facility] Comment on above: Performed By: #### Gerry INGRAM, CMP #### [facility] [address] [place] [address] Dr. Geri Pradhan Chloride [Moles/Vol] 100 mmol/L Normal 98-107 [facility] Comment on above: Performed By: #### Gerry INGRAM, CMP #### [facility] [address] [address] [address] Geri Pradhan CO2 [Moles/Vol] 43.2 mmol/L Critically high 21.0-32.0 [facility] Comment on above: Performed By: #### Gerry INGRAM, CMP #### [facility] [address] [place] [address] Dr. Geri Pradhan Creatinine [Mass/Vol] 0.52 mg/dL Critically low 0.55-1.02 [facility] Comment on above: Performed By: #### Gerry INGRAM, CMP #### [facility] [address] [place] [address] Dr. Geri Pradhan EGFR-AF VIETNAMESE >60 Normal >=60 [facility] Comment on above: Performed By: #### Gerry INGRAM, CMP #### [facility] [address] [place] [address] Dr. Geri Pradhan EGFR-NON AF VIET[place]ESE >60 Normal >=60 [facility] Comment on above: Performed By: #### Gerry INGRAM, CMP #### [facility] [address] [place] [address] Dr. Geri Pradhan Globulin (S) [Mass/Vol] 4.2 g/dL Normal [facility] Comment on above: Performed By: #### Gerry INGRAM, CMP #### [facility] [address] [place] [address] Dr. Geri Pradhan Glucose [Mass/Vol] 138 mg/dL Critically high 74-106 [facility] Comment on above: Performed By: #### Gerry ESCALANTEO, CMP #### [facility] [address] [place] [address] Dr. Geri Pradhan Potassium [Moles/Vol] 4.4 mmol/L Normal 3.5-5.1 [facility] Comment on above: Performed By: #### Gerry INGRAM, CMP #### [facility] [address] [place] [address] Dr. Geri Pradhan Protein [Mass/Vol] 7.1 g/dL Normal 6.4-8.2 [facility] Comment on above: Performed By: #### T JUAN JOSE, CMP #### [facility] [address] [place] [address] Dr. Geri Pradhan Sodium [Moles/Vol] 142 mmol/L Normal 136-145 [facility] Comment on above: Performed By: #### Gerry INGRAM, CMP #### [facility] [address] [place] [address] Dr. Geri Pradhan Urea nitrogen [Mass/Vol] 15.0 mg/dL Normal 7.0-18.0 [facility] Comment on above: Performed By: #### Gerry INGRAM, CMP #### [facility] [address] [place] [address] Dr. Geri Pradhan Urea nitrogen/Creatinine [Mass ratio] 28.8 mg/mg Normal [facility] Comment on above: Performed By: #### Gerry INGRAM, CMP #### [facility] [address] [place] [address] Dr. Geri Pradhan RESPIRATORY PANEL PLUSon Adenovirus Not detected Normal NOT DETECTED [facility] Comment on above: Performed By: #### R SPLUS #### [facility] [address] [place] [address] Dr. Geri Pradhan B. Parapertusis Not detected Normal NOT DETECTED [facility] Comment on above: Performed By: #### R SPLUS #### [facility] [address] [place] [address] Dr. Geri Pradhan B. Pertussis Not detected Normal NOT DETECTED [facility] Comment on above: Performed By: #### R SPLUS #### [facility] [address] [place] [address] Dr. Geri Pradhan Chlamydia Pneumoniae Not detected Normal NOT DETECTED [facility] Comment on above: Performed By: #### R SPLUS #### [facility] [address] [place] [address] Dr. Geri Pradhan Coronavirus 229E Not detected Normal NOT DETECTED [facility] Comment on above: Performed By: #### R SPLUS #### [facility] [address] [place] [address] Dr. Geri Pradhan Coronavirus HKU1 Not detected Normal NOT DETECTED [facility] Comment on above: Performed By: #### R SPLUS #### [facility] [address] [place] [address] Dr. Geri Pradhan Coronavirus NL63 Not detected Normal NOT DETECTED [facility] Comment on above: Performed By: #### R SPLUS #### [facility] [address] [place] [address] Dr. Geri Pradhan Coronavirus OC43 Not detected Normal NOT DETECTED [facility] Comment on above: Performed By: #### R SPLUS #### [facility] [address] [place] [address] Dr. Geri Pradhan Influenza A H1 Not detected Normal NOT DETECTED [facility] Comment on above: Performed By: #### R SPLUS #### [facility] [address] [place] [address] Dr. Geri Pradhan Influenza A H1 2009 Not detected Normal NOT DETECTED [facility] Comment on above: Performed By: #### R SPLUS #### [facility] [address] [place] [address] Dr. Geri Pradhan Influenza A H3 Not detected Normal NOT DETECTED [facility] Comment on above: Performed By: #### R SPLUS #### [facility] [address] [place] [address] Dr. Geri Pradhan Influenza B Not detected Normal NOT DETECTED [facility] Comment on above: Performed By: #### R SPLUS #### [facility] [address] [place] [address] Dr. Geri Pradhan Metapneumovirus Not detected Normal NOT DETECTED [facility] Comment on above: Performed By: #### R SPLUS #### [facility] [address] [place] [address] Dr. Geri Pradhan Mycoplas. Pneumoniae Not detected Normal NOT DETECTED [facility] Comment on above: Performed By: #### R SPLUS #### [facility] [address] [place] [address] Dr. Geri Pradhan Parainfluenza 1 Not detected Normal NOT DETECTED [facility] Comment on above: Performed By: #### R SPLUS #### [facility] [address] [place] [address] Dr. Geri Pradhan Parainfluenza 2 Not detected Normal NOT DETECTED [facility] Comment on above: Performed By: #### R SPLUS #### [facility] [address] [place] [address] Dr. Geri Pradhan Parainfluenza 3 Detected Abnormal NOT DETECTED [facility] Comment on above: Performed By: #### R SPLUS #### [facility] [address] [place] [address] Dr. Geri Pradhan Parainfluenza 4 Not detected Normal NOT DETECTED [facility] Comment on above: Performed By: #### R SPLUS #### [facility] [address] [place] [address] Dr. Geri Pradhan Rhino/Enterovirus Not detected Normal NOT DETECTED [facility] Comment on above: Performed By: #### R SPLUS #### [facility] [address] [place] [address] Dr. Geri Pradhan RP2 Header 1 RESPIRATORY PANEL: VIRUSES Normal [facility] Comment on above: Performed By: #### R SPLUS #### [facility] [address] [place] [address] Dr. Geri Pradhan RP2 Header 2 RESPIRATORY PANEL: BACTERIA Normal [facility] Comment on above: Performed By: #### R SPLUS #### [facility] [address] [place] [address] Dr. Geri Pradhan RSV Not detected Normal NOT DETECTED [facility] Comment on above: Performed By: #### R SPLUS #### [facility] [address] [place] [address] Dr. Geri Pradhan SARS-CoV-2 (COVID-19) RNA KRUNAL+probe Ql (Unsp spec) Not detected Normal NOT DETECTED [facility] Comment on above: Performed By: #### R SPLUS #### [facility] [address] [place] [address] Dr. Geri Pradhan THEOPHYLLINEon 09-04-2022 THEOPHYLLINE <2.0 Critically low 10.0-20.0 [facility] Comment on above: Performed By: #### T JUAN JOSE, CMP #### [facility] [address] [place] [address] Dr. Geri Pradhan CBC AUTO DIFFon 09-03-2022 BASO # 0.0 103/ul Normal 0.0-0.1 [facility] Comment on above: Performed By: #### P OCGLUC #### [facility] [address] [place] [address] Dr. Geri Pradhan Basophils/100 WBC (Bld) 0.1 % Critically low 0.2-2.0 [facility] Comment on above: Performed By: #### P OCGLUC #### [facility] [address] [place] [address] Dr. Geri Pradhan EO # 0.0 103/ul Normal 0.0-0.7 [facility] Comment on above: Performed By: #### P OCGLUC #### [facility] [address] [place] [address] Dr. Geri Pradhan Eosinophils/100 WBC (Bld) 0.0 % Critically low 0.9-7.0 [facility] Comment on above: Performed By: #### P OCGLUC #### [facility] [address] [place] [address] Dr. Geri Pradhan Erythrocyte distribution width (RBC) [Ratio] 13.0 % Normal 11.0-15.0 [facility] Comment on above: Performed By: #### P OCGLUC #### [facility] [address] [place] [address] Dr. Geri Pradhan Hematocrit (Bld) [Volume fraction] 42.1 % Normal 36.0-48.0 [facility] Comment on above: Performed By: #### P OCGLUC #### [facility] [address] [address] [address] Geri Pradhan Hemoglobin (Bld) [Mass/Vol] 12.3 g/dL Normal 12.0-16.0 [facility] Comment on above: Performed By: #### P OCGLUC #### [facility] [address] [address] [address] Geri Pradhan IG # 0.13 10e3/ul Critically high 0.00-0.03 [facility] Comment on above: Performed By: #### P OCGLUC #### [facility] [address] [place] [address] Dr. Geri Pradhan IG % 1.2 % Critically high 0.0-0.5 [facility] Comment on above: Performed By: #### P OCGLUC #### [facility] [address] [place] [address] Dr. Geri Pradhan LYMPH # 0.6 103/ul Critically low 1.2-3.8 [facility] Comment on above: Performed By: #### P OCGLUC #### [facility] [address] [place] [address] Dr. Geri Pradhan Lymphocytes/100 WBC (Bld) 6.0 % Critically low 20.5-60.0 [facility] Comment on above: Performed By: #### P OCGLUC #### [facility] [address] [place] [address] Dr. Geri Pradhan MANUAL DIFF REQ NO Normal [facility] Comment on above: Performed By: #### P OCGLUC #### [facility] [address] [address] [address] Geri Pradhan MCH (RBC) [Entitic mass] 26.0 pg Critically low 26.7-34.0 [facility] Comment on above: Performed By: #### P OCGLUC #### [facility] [address] [place] [address] Dr. Geri Pradhan MCHC (RBC) [Mass/Vol] 29.2 g/dL Critically low 29.9-35.2 [facility] Comment on above: Performed By: #### P OCGLUC #### [facility] [address] [address] [address] Geri Pradhan MCV (RBC) [Entitic vol] 89.0 fL Normal 81.0-99.0 [facility] Comment on above: Performed By: #### P OCGLUC #### [facility] [address] [address] [address] Geri Pradhan MONO # 0.2 103/ul Critically low 0.3-0.8 [facility] Comment on above: Performed By: #### P OCGLUC #### [facility] [address] [address] [address] Geri Pradhan Monocytes/100 WBC (Bld) 2.0 % Normal 1.7-12.0 [facility] Comment on above: Performed By: #### P OCGLUC #### [facility] [address] [address] [address] Geri Pradhan NEUT # 9.6 103/ul Critically high 1.4-6.5 [facility] Comment on above: Performed By: #### P OCGLUC #### [facility] [address] [address] [address] Geri Pradhan Neutrophils/100 WBC (Bld) 90.7 % Critically high 43.0-75.0 [facility] Comment on above: Performed By: #### P OCGLUC #### [facility] [address] [address] [address] Geri Pradhan Platelet mean volume (Bld) [Entitic vol] 9.1 fL Critically low 9.5-13.5 [facility] Comment on above: Performed By: #### P OCGLUC #### [facility] [address] [address] [address] Geri Pradhan PLT 302 103/ul Normal 150-450 [facility] Comment on above: Performed By: #### P OCGLUC #### [facility] [address] [address] [address] Geri Pradhan RBC 4.73 106/ul Normal 4.20-5.40 [facility] Comment on above: Performed By: #### P OCGLUC #### [facility] [address] [address] [address] Geri Pradhan WBC 10.6 103/ul Normal 4.0-11.0 [facility] Comment on above: Performed By: #### P OCGLUC #### [facility] [address] [address] [address] Geri Pradhan POINT OF CARE GLUCOSEon 08-12 Glucose [Mass/Vol] 130 mg/dL Critically high 74-106 [facility] Comment on above: Performed By: #### Gerry INGRAM, CMP #### [facility] [address] [address] [address] Geri Pradhan Glucose [Mass/Vol] 217 mg/dL Critically high 74-106 [facility] Comment on above: Performed By: #### Gerry INGRAM, CMP #### [facility] [address] [address] [address] Geri Pradhan Glucose [Mass/Vol] 327 mg/dL Critically high [facility]106 [facility] Comment on above: Performed By: #### C VDTBH #### [facility] [address] [place] [address] Dr. Geri Pradhan Glucose [Mass/Vol] 146 mg/dL Critically high -106 [facility] Comment on above: Performed By: #### Gerry INGRAM, CMP #### [facility] [address] [place] [address] Dr. Geri Pradhan Glucose [Mass/Vol] 174 mg/dL Critically high -106 [facility] Comment on above: Performed By: #### Gerry INGRAM, CMP #### [facility] [address] [place] [address] Dr. Geri Pradhan PROF 14(COMP METB)on 023 Albumin [Mass/Vol] 2.9 g/dL Critically low 3.4-5.0 [facility] Comment on above: Performed By: #### P OCGLUC #### [facility] [address] [address] [address] Geri Pradhan Albumin/Globulin [Mass ratio] 0.7 {ratio} Normal [facility] Comment on above: Performed By: #### P OCGLUC #### [facility] [address] [address] [address] Geri Pradhan ALP [Catalytic activity/Vol] 74 U/L Normal 46-116 [facility] Comment on above: Performed By: #### P OCGLUC #### [facility] [address] [address] [address] Geri Pradhan ALT [Catalytic activity/Vol] 21 U/L Normal 14-59 [facility] Comment on above: Performed By: #### P OCGLUC #### [facility] [address] [address] [address] Geri Pradhan Anion gap [Moles/Vol] 4.4 mmol/L Normal [facility] Comment on above: Performed By: #### P OCGLUC #### [facility] [address] [address] [address] Geri Pradhan AST [Catalytic activity/Vol] 17 U/L Normal 15-37 [facility] Comment on above: Performed By: #### P OCGLUC #### [facility] [address] [address] [address] Geri Pradhan Bilirubin [Mass/Vol] 0.2 mg/dL Normal 0.2-1.0 [facility] Comment on above: Performed By: #### P OCGLUC #### [facility] [address] [address] [address] Geri Pradhan Calcium [Mass/Vol] 9.4 mg/dL Normal 8.5-10.1 [facility] Comment on above: Performed By: #### P OCGLUC #### [facility] [address] [address] [address] Geri Pradhan Chloride [Moles/Vol] 99 mmol/L Normal 98-107 [facility] Comment on above: Performed By: #### P OCGLUC #### [facility] [address] [address] [address] Geri Pradhan CO2 [Moles/Vol] 42.8 mmol/L Critically high 21.0-32.0 [facility] Comment on above: Performed By: #### P OCGLUC #### [facility] [address] [address] [address] Geri Pradhan Creatinine [Mass/Vol] 0.55 mg/dL Normal 0.55-1.02 [facility] Comment on above: Performed By: #### P OCGLUC #### [facility] [address] [address] [address] Geri Pradhan EGFR-AF VIETNAMESE >60 Normal >=60 [facility] Comment on above: Performed By: #### P OCGLUC #### [facility] [address] [place] [address] Dr. Geri Pradhan EGFR-NON AF VIETNAMESE >60 Normal >=60 [facility] Comment on above: Performed By: #### P OCGLUC #### [facility] [address] [address] [address] Geri Pradhan Globulin (S) [Mass/Vol] 4.4 g/dL Normal [facility] Comment on above: Performed By: #### P OCGLUC #### [facility] [address] [address] [address] Geri Pradhan Glucose [Mass/Vol] 136 mg/dL Critically high 74-106 [facility] Comment on above: Performed By: #### P OCGLUC #### [facility] [address] [address] [address] Geri Pradhan Potassium [Moles/Vol] 4.2 mmol/L Normal 3.5-5.1 [facility] Comment on above: Performed By: #### P OCGLUC #### [facility] [address] [address] [address] Geri Pradhan Protein [Mass/Vol] 7.3 g/dL Normal 6.4-8.2 [facility] Comment on above: Performed By: #### P OCGLUC #### [facility] [address] [address] [address] Geri Pradhan Sodium [Moles/Vol] 142 mmol/L Normal 136-145 [facility] Comment on above: Performed By: #### P OCGLUC #### [facility] [address] [address] [address] Geri Pradhan Urea nitrogen [Mass/Vol] 14.0 mg/dL Normal 7.0-18.0 [facility] Comment on above: Performed By: #### P OCGLUC #### [facility] [address] [address] [address] Geri Pradhan Urea nitrogen/Creatinine [Mass ratio] 25.5 mg/mg Normal [facility] Comment on above: Performed By: #### P OCGLUC #### [facility] [address] [address] [address] Geri Pradhan THEOPHYLLINEon 09-03-2022 THEOPHYLLINE <2.0 Critically low 10.0-20.0 [facility] Comment on above: Performed By: #### P OCGLUC #### [facility] [address] [place] [address] Dr. Geri Pradhan MAGNESIUMon 09-02-2022 Magnesium [Mass/Vol] 2.3 mg/dL Normal 1.8-2.4 [facility] Comment on above: Performed By: #### T JUAN JOSE, CMP #### [facility] [address] [address] [address] Geri Pradhan POINT OF CARE GLUCOSEon 08-12 Glucose [Mass/Vol] 118 mg/dL Critically high -106 [facility] Comment on above: Performed By: #### R SPLUS #### [facility] [address] [place] [address] Dr. Geri Pradhan Glucose [Mass/Vol] 263 mg/dL Critically high -106 [facility] Comment on above: Performed By: #### R SPLUS #### [facility] [address] [place] [address] Dr. Geri Pradhan Glucose [Mass/Vol] 160 mg/dL Critically high -106 [facility] Comment on above: Performed By: #### P OCGLUC #### [facility] [address] [address] [address] Geri Pradhan PROF CHEM 8 (BAS METB)on Anion gap [Moles/Vol] 5.3 mmol/L Normal [facility] Comment on above: Performed By: #### Gerry INGRAM, CMP #### [facility] [address] [place] [address] Dr. Geri Pradhan Calcium [Mass/Vol] 9.5 mg/dL Normal 8.5-10.1 [facility] Comment on above: Performed By: #### Gerry INGRAM, CMP #### [facility] [address] [address] [address] Geri Pradhan Chloride [Moles/Vol] 94 mmol/L Critically low 98-107 [facility] Comment on above: Performed By: #### Gerry INGRAM, CMP #### [facility] [address] [place] [address] Dr. Geri Pradhan CO2 [Moles/Vol] 42.5 mmol/L Critically high 21.0-32.0 [facility] Comment on above: Performed By: #### Gerry INGRAM, CMP #### [facility] [address] [place] [address] Dr. Geri Pradhan Creatinine [Mass/Vol] 0.66 mg/dL Normal 0.55-1.02 [facility] Comment on above: Performed By: #### Gerry INGRAM, CMP #### [facility] [address] [place] [address] Dr. Geri Pradhan EGFR-AF VIET[place]ESE >60 Normal >=60 [facility] Comment on above: Performed By: #### Gerry INGRAM, CMP #### [facility] [address] [place] [address] Dr. Geri Pradhan EGFR-NON AF VIET[place]ESE >60 Normal >=60 [facility] Comment on above: Performed By: #### Gerry INGRAM, CMP #### [facility] [address] [place] [address] Dr. Geri Pradhan Glucose [Mass/Vol] 183 mg/dL Critically high 74-106 [facility] Comment on above: Performed By: #### Gerry INGRAM, CMP #### [facility] [address] [address] [address] Geri Pradhan Potassium [Moles/Vol] 3.8 mmol/L Normal 3.5-5.1 [facility] Comment on above: Performed By: #### Gerry INGRAM, CMP #### [facility] [address] [address] [address] Geri Pradhan Sodium [Moles/Vol] 138 mmol/L Normal 136-145 [facility] Comment on above: Performed By: #### Gerry INGRAM, CMP #### [facility] [address] [address] [address] Geri Pradhan Urea nitrogen [Mass/Vol] 10.0 mg/dL Normal 7.0-18.0 [facility] Comment on above: Performed By: #### Gerry INGRAM, CMP #### [facility] [address] [place] [address] Dr. Geri Pradhan Urea nitrogen/Creatinine [Mass ratio] 15.2 mg/mg Normal [facility] Comment on above: Performed By: #### Gerry INGRAM, CMP #### [facility] [address] [place] [address] Dr. [facility] THEOPHYLLINE <2.0 Critically low 10.0-20.0 [facility] Comment on above: Performed By: #### R SPLUS #### [facility] [address] [place] [address] Dr. Geri Pradhan BLOOD CULTURE ID PANELon A. baumannii Not detected Normal NOT DETECTED [facility] Comment on above: Performed By: #### Gerry INGRAM, CMP #### [facility] [address] [place] [address] Dr. Geri Pradhan Bacteriodes fragilis Not detected Normal NOT DETECTED [facility] Comment on above: Performed By: #### Gerry INGRAM, CMP #### [facility] [address] [place] [address] Dr. Geri Pradhan BCID CONTROLS PASSED Normal [facility] Comment on above: Performed By: #### Gerry INGRAM, CMP #### [facility] [address] [address] [address] Geri GARCÍADBTHD BLOOD CULTURE BOTTLE INFORMATION [facility] Comment on above: Performed By: #### Gerry INGRAM, CMP #### [facility] [address] [address] [address] Geri Pradhan BCIDHD1 ANTIMICROBIAL RESISTANCE GENES [facility] Comment on above: Performed By: #### Gerry INGRAM, CMP #### [facility] [address] [address] [address] Geri Pradhan BCIDHD2 SEE BELOW [facility] Comment on above: Result Comment: Note : Antimicrobial resitance can occur via multiple mechanisms. A Not Detected result for the [employer] antomicrobial resistance gene assays does not indicate antimicrobial susceptibility. Subculturing is required for species identification and susceptibility testing of isolates. Performed By: #### Gerry INGRAM, CMP #### [facility] [address] [place] [address] Dr. Geri Pradhan BCIDHD3 Positive [facility] Comment on above: Performed By: #### Gerry INGRAM, CMP #### [facility] [address] [address] [address] Geri Pradhan BCIDHD4 Negative [facility] Comment on above: Performed By: #### Gerry INGRAM, CMP #### [facility] [address] [place] [address] Dr. Geri Pradhan BCIDHD5 YEAST [facility] Comment on above: Performed By: #### Gerry INGRAM, CMP #### [facility] [address] [place] [address] Dr. Geri Pradhan Bottle Set: Set 1 [facility] Comment on above: Performed By: #### Gerry INGRAM, CMP #### [facility] [address] [place] [address] Dr. Geri Pradhan Bottle: Aerobic Normal [facility] Comment on above: Performed By: #### Gerry INGRAM, CMP #### [facility] [address] [place] [address] Dr. Geri Pradhan C. neoformans/gattii Not detected Normal NOT DETECTED [facility] Comment on above: Performed By: #### T JUAN JOSE, CMP #### [facility] [address] [place] [address] Dr. Geri Pradhan Milagros albicans Not detected Normal NOT DETECTED [facility] Comment on above: Performed By: #### T JUAN JOSE, CMP #### [facility] [address] [address] [address] Geri Pradhan Milagros auris Not detected Normal NOT DETECTED The [facility] Comment on above: Performed By: #### T JUAN JOSE, CMP #### [facility] [address] [place] [address] Dr. Geri Pradhan Milagros glabrata Not detected Normal NOT DETECTED [facility] Comment on above: Performed By: #### T JUAN JOSE, CMP #### [facility] [address] [place] [address] Dr. Geri Pradhan Milagros Krusei Not detected Normal NOT DETECTED [facility] Comment on above: Performed By: #### T JUAN JOSE, CMP #### [facility] [address] [place] [address] Dr. Geri Pradhan Milagros Parapsilosis Not detected Normal NOT DETECTED [facility] Comment on above: Performed By: #### T JUAN JOSE, CMP #### [facility] [address] [place] [address] Dr. Geri Pradhan Milagros Tropicalis Not detected Normal NOT DETECTED [facility] Comment on above: Performed By: #### T JUAN JOSE, CMP #### [facility] [address] [place] [address] Dr. Geri Pradhan CTX-M Resistant Gene Not Applicable Normal NOT DETECTE D [facility] Comment on above: Performed By: #### T JUAN JOSE, CMP #### [facility] [address] [place] [address] Dr. Geri Pradhan E. Cloacae complex Not detected Normal NOT DETECTED [facility] Comment on above: Performed By: #### T JUAN JOSE, CMP #### [facility] [address] [place] [address] Dr. Geri Pradhan E. faecalis Not detected Normal NOT DETECTED The [facility] Comment on above: Performed By: #### T JUAN JOSE, CMP #### [facility] [address] [place] [address] Dr. Geri Pardhan E. faecium Not detected Normal NOT DETECTED The [facility] Comment on above: Performed By: #### T JUAN JOSE, CMP #### [facility] [address] [address] [address] Geri Pradhan Enterobacteriaceae Not detected Normal NOT DETECTED [facility] Comment on above: Performed By: #### T JUAN JOSE, CMP #### [facility] [address] [place] [address] Dr. Geri Pradhan Escherichia coli Not detected Normal NOT DETECTED [facility] Comment on above: Performed By: #### T JUAN JOSE, CMP #### [facility] [address] [place] [address] Dr. Geri Pradhan H. influenzae Not detected Normal NOT DETECTED [facility] Comment on above: Performed By: #### T JUAN JOSE, CMP #### [facility] [address] [place] [address] Dr. Geri Pradhan IMP Resistant Gene Not Applicable Normal NOT DETECTED [facility] Comment on above: Performed By: #### T JUAN JOSE, CMP #### [facility] [address] [place] [address] Dr. Geri Pradhan K. oxytoca Not detected Normal NOT DETECTED [facility] Comment on above: Performed By: #### T JUAN JOSE, CMP #### [facility] [address] [place] [address] Dr. Geri Pradhan K. pneumoniae Not detected Normal NOT DETECTED [facility] Comment on above: Performed By: #### T JUAN JOSE, CMP #### [facility] [address] [place] [address] Dr. Geri Pradhan Klebsiella aerogenes Not detected Normal NOT DETECTED [facility] Comment on above: Performed By: #### T JUAN JOSE, CMP #### [facility] [address] [place] [address] Dr. Geri Pradhan KPC Resistant Gene Not Applicable Normal NOT DETECTED [facility] Comment on above: Performed By: #### T JUAN JOSE, CMP #### [facility] [address] [address] [address] Geri Pradhan List. monocytogenes Not detected Normal NOT DETECTED [facility] Comment on above: Performed By: #### T JUAN JOSE, CMP #### [facility] [address] [place] [address] Dr. Geri Pradhan Mcr-1 Resistant Gene Not Applicable Normal NOT DETECTE D [facility] Comment on above: Performed By: #### T JUAN JOSE, CMP #### [facility] [address] [address] [address] Geri Pradhan mecA/C Detected Abnormal NOT DETECTED [facility] Comment on above: Performed By: #### T JUAN JOSE, CMP #### [facility] [address] [place] [address] Dr. Geri Pradhan mecA/C MREJ Not Applicable Normal NOT DETECTED [facility] Comment on above: Performed By: #### Gerry INGRAM, CMP #### [facility] [address] [place] [address] Dr. Geri Pradhan N. meningitidis Not detected Normal NOT DETECTED [facility] Comment on above: Performed By: #### Gerry INGRAM, CMP #### [facility] [address] [place] [address] Dr. Geri Pradhan NDM Resistant Gene Not Applicable Normal NOT DETECTED [facility] Comment on above: Performed By: #### Gerry INGRAM, CMP #### [facility] [address] [place] [address] Dr. Geri Pradhan Oxa-48-like Not Applicable Normal NOT DETECTED [facility] Comment on above: Performed By: #### T JUAN JOSE, CMP #### [facility] [address] [place] [address] Dr. Geri Pradhan Proteus Not detected Normal NOT DETECTED [facility] Comment on above: Performed By: #### T JUAN JOSE, CMP #### [facility] [address] [place] [address] Dr. Geri Pradhan Pseud. aeruginosa Not detected Normal NOT DETECTED [facility] Comment on above: Performed By: #### T JUAN JOSE, CMP #### [facility] [address] [address] [address] Geri Pradhan S. maltophilia Not detected Normal NOT DETECTED [facility] Comment on above: Performed By: #### T JUAN JOSE, CMP #### [facility] [address] [address] [address] Geri Pradhan Salmonella Not detected Normal NOT DETECTED [facility] Comment on above: Performed By: #### T JUAN JOSE, CMP #### [facility] [address] [address] [address] Geri Pradhan Seratia marcescens Not detected Normal NOT DETECTED [facility] Comment on above: Performed By: #### T JUAN JOSE, CMP #### [facility] [address] [place] [address] Dr. Geri Pradhan Site: Right AC Normal [facility] Comment on above: Performed By: #### T JUAN JOSE, CMP #### [facility] [address] [address] [address] Geri Pradhan Stapwilliam. aureus Not detected Normal NOT DETECTED [facility] Comment on above: Performed By: #### T JUAN JOSE, CMP #### [facility] [address] [address] [address] Geri Pradhan Stapwilliam. epidermidis Detected Critically abnormal NOT DETECTED [facility] Comment on above: Performed By: #### T JUAN JOSE, CMP #### [facility] [address] [address] [address] Geri Pradhan Staph. lugdunensis Not detected Normal NOT DETECTED [facility] Comment on above: Performed By: #### T JUAN JOSE, CMP #### [facility] [address] [address] [address] Geri Pradhan Staphylococcus Detected Critically abnormal NOT DETECTED [facility] Comment on above: Performed By: #### T JUAN JOSE, CMP #### [facility] [address] [place] [address] Dr. Geri Pradhan Strep. agalactiae Not detected Normal NOT DETECTED [facility] Comment on above: Performed By: #### T JUAN JOSE, CMP #### [facility] [address] [place] [address] Dr. Geri Pradhan Strep. pneumoniae Not detected Normal NOT DETECTED [facility] Comment on above: Performed By: #### T JUAN JOSE, CMP #### [facility] [address] [address] [address] Geri Pradhan Strep. pyogenes Not detected Normal NOT DETECTED [facility] Comment on above: Performed By: #### T JUAN JOSE, CMP #### [facility] [address] [place] [address] Dr. Geri Pradhan Streptococcus Not detected Normal NOT DETECTED [facility] Comment on above: Performed By: #### T JUAN JSOE, CMP #### [facility] [address] [place] [address] Dr. Geri Pradhan Amrit/B Resist. Gene Not Applicable Normal NOT DETECTED [facility] Comment on above: Performed By: #### Gerry INGRAM, CMP #### [facility] [address] [place] [address] Dr. Geri Pradhan VIM Resistant Gene Not Applicable Normal NOT DETECTED [facility] Comment on above: Performed By: #### Gerry INGRAM, CMP #### [facility] [address] [place] [address] Dr. Geri Pradhan BLOOD GASES [facility] 09-01-2022 02 MODE NASAL CANNULA Normal [facility] Comment on above: Performed By: #### R SPLUS #### [facility] [address] [place] [address] Dr. Geri Pradhan ALLENDionne TEST Positive Normal [facility] Comment on above: Performed By: #### R SPLUS #### [facility] [address] [place] [address] Dr. Geri Pradhan Base excess Calc (Bld) [Moles/Vol] 22.8 mmol/L Critically high -2.0-2.0 [facility] Comment on above: Performed By: #### R SPLUS #### [facility] [address] [place] [address] Dr. Geri Pradhan BIPAP PRESSURE Normal [facility] Comment on above: Performed By: #### R SPLUS #### [facility] [address] [address] [address] Geri Pradhan CPAP [facility] Comment on above: Performed By: #### R SPLUS #### [facility] [address] [address] [address] Geri Pradhan FIO2 [facility] Comment on above: Performed By: #### R SPLUS #### [facility] [address] [address] [address] Geri Pradhan HCO3 (Bld) [Moles/Vol] 47.1 mmol/L Critically high 22.0-26 .0 [facility] Comment on above: Performed By: #### R SPLUS #### [facility] [address] [place] [address] Dr. Geri Pradhan LPM 2.5 [facility] Comment on above: Performed By: #### R SPLUS #### [facility] [address] [address] [address] Geri Pradhan MINUTE VOLUME Normal [facility] Comment on above: Performed By: #### R SPLUS #### [facility] [address] [place] [address] Dr. Geri Pradhan Oxygen (Bld) [Partial pressure] 95.8 mm[Hg] Normal 80.0-100.0 [facility] Comment on above: Performed By: #### R SPLUS #### [facility] [address] [place] [address] Dr. Geri Pradhan Oxygen saturation in Blood 98.0 % Normal 95.0-100.0 [facility] Comment on above: Performed By: #### R SPLUS #### [facility] [address] [address] [address] Geri Pradhan PCO2 71.5 mmHg Critically high 35.0-45.0 [facility] Comment on above: Performed By: #### R SPLUS #### [facility] [address] [address] [address] Geri Pradhan PEEP [facility] Comment on above: Performed By: #### R SPLUS #### [facility] [address] [place] [address] Dr. Geri Pradhan pH (Bld) 7.428 [pH] Normal 7.350-7.450 [facility] Comment on above: Performed By: #### R SPLUS #### [facility] [address] [place] [address] Dr. Geri Pradhan PIP [facility] Comment on above: Performed By: #### R SPLUS #### [facility] [address] [place] [address] Dr. Geri Pradhan PS [facility] Comment on above: Performed By: #### R SPLUS #### [facility] [address] [place] [address] Dr. Geri Pradhan PUNCTURE SITE RR [facility] Comment on above: Performed By: #### R SPLUS #### [facility] [address] [place] [address] Dr. Geri Pardhan [facility] Comment on above: Performed By: #### R SPLUS #### [facility] [address] [place] [address] Dr. Geri Pradhan VENT MODE [facility] Comment on above: Performed By: #### R SPLUS #### [facility] [address] [place] [address] Dr. Geri Pradhan [facility] Comment on above: Performed By: #### R SPLUS #### [facility] [address] [place] [address] Dr. Geri Pradhan BNPon 09-01-2022 Natriuretic peptide B (Bld) [Mass/Vol] 143.0 pg/mL Normal <=900.0 [facility] Comment on above: Performed By: #### R SPLUS #### [facility] [address] [place] [address] Dr. Geri Pradhan CARDIAC BRAYAN ADMITon 023 CK [Catalytic activity/Vol] 21 U/L Critically low 26-192 [facility] Comment on above: Performed By: #### R SPLUS #### [facility] [address] [place] [address] Dr. Geri Pradhan CK.MB [Mass/Vol] 0.78 ng/mL Normal <=3.60 [facility] Comment on above: Performed By: #### R SPLUS #### [facility] [address] [place] [address] Dr. Geri Pradhan HSTROP 6.9 pg/mL Normal 4.0-51.3 [facility] Comment on above: Result Comment: CUT- OFF POINTS HAVE BEEN ESTABLISHED BASED ON THE FOURTH UNIVERSAL DEFINITIONS OF MYOCARDIAL INFARCTION. THE UPPER REFERENCE LIMIT (URL) OF TROPONIN, DEFINED THE 99TH PERCENTILE OF cTnI DISTRIBUTION IN A REFERENCE POPULATION, HAS BEEN CONFIRMED THE DECISION THRESHOLD FOR IA DIAGNOSIS. Performed By: #### R SPLUS #### [facility] [address] [place] [address] Dr. Geri Pradhan VIN 20 ng/mL Normal 9-82 [facility] Comment on above: Performed By: #### R SPLUS #### [facility] [address] [place] [address] Dr. Geri Pradhan CBC AUTO DIFFon 09-01-2022 BASO # 0.0 103/ul Normal 0.0-0.1 [facility] Comment on above: Performed By: #### C BC #### [facility] [address] [place] [address] Dr. Geri Pradhan Basophils/100 WBC (Bld) 0.2 % Normal 0.2-2.0 [facility] Comment on above: Performed By: #### C BC #### [facility] [address] [place] [address] Dr. Geri Pradhan EO # 0.1 103/ul Normal 0.0-0.7 [facility] Comment on above: Performed By: #### C BC #### [facility] [address] [place] [address] Dr. Geri Pradhan Eosinophils/100 WBC (Bld) 1.5 % Normal 0.9-7.0 [facility] Comment on above: Performed By: #### C BC #### [facility] [address] [place] [address] Dr. Geri Pradhan Erythrocyte distribution width (RBC) [Ratio] 12.8 % Normal 11.0-15.0 [facility] Comment on above: Performed By: #### C BC #### [facility] [address] [place] [address] Dr. Geri Pradhan Hematocrit (Bld) [Volume fraction] 41.8 % Normal 36.0-48.0 [facility] Comment on above: Performed By: #### C BC #### [facility] [address] [place] [address] Dr. Geri Pradhan Hemoglobin (Bld) [Mass/Vol] 13.1 g/dL Normal 12.0-16.0 [facility] Comment on above: Performed By: #### C BC #### [facility] [address] [place] [address] Dr. Geri Pradhan IG # 0.05 10e3/ul Critically high 0.00-0.03 [facility] Comment on above: Performed By: #### C BC #### [facility] [address] [place] [address] Dr. Geri Pradhan IG % 0.5 % Normal 0.0-0.5 [facility] Comment on above: Performed By: #### C BC #### [facility] [address] [place] [address] Dr. Geri Pradhan LYMPH # 2.4 103/ul Normal 1.2-3.8 [facility] Comment on above: Performed By: #### C BC #### [facility] [address] [place] [address] Dr. Geri Pradhan Lymphocytes/100 WBC (Bld) 24.9 % Normal 20.5-60.0 [facility] Comment on above: Performed By: #### C BC #### [facility] [address] [place] [address] Dr. Geri Pradhan MANUAL DIFF REQ NO Normal [facility] Comment on above: Performed By: #### C BC #### [facility] [address] [place] [address] Dr. Geri Pradhan MCH (RBC) [Entitic mass] 27.2 pg Normal 26.7-34.0 [facility] Comment on above: Performed By: #### C BC #### [facility] [address] [place] [address] Dr. Geri Pradhan MCHC (RBC) [Mass/Vol] 31.3 g/dL Normal 29.9-35.2 [facility] Comment on above: Performed By: #### C BC #### [facility] [address] [place] [address] Dr. Geri Pradhan MCV (RBC) [Entitic vol] 86.7 fL Normal 81.0-99.0 [facility] Comment on above: Performed By: #### C BC #### [facility] [address] [place] [address] Dr. Geri Pradhan MONO # 0.9 103/ul Critically high 0.3-0.8 [facility] Comment on above: Performed By: #### C BC #### [facility] [address] [place] [address] Dr. Geri Pradhan Monocytes/100 WBC (Bld) 8.9 % Normal 1.7-12.0 [facility] Comment on above: Performed By: #### C BC #### [facility] [address] [place] [address] Dr. Geri Pradhan NEUT # 6.1 103/ul Normal 1.4-6.5 [facility] Comment on above: Performed By: #### C BC #### [facility] [address] [place] [address] Dr. Geri Pradhan Neutrophils/100 WBC (Bld) 64.0 % Normal 43.0-75.0 [facility] Comment on above: Performed By: #### C BC #### [facility] [address] [place] [address] Dr. Geri Pradhan Platelet mean volume (Bld) [Entitic vol] 9.2 fL Critically low 9.5-13.5 [facility] Comment on above: Performed By: #### C BC #### [facility] [address] [place] [address] Dr. Geri Pradhan PLT 349 103/ul Normal 150-450 [facility] Comment on above: Performed By: #### C BC #### [facility] [address] [place] [address] Dr. Geri Pradhan RBC 4.82 106/ul Normal 4.20-5.40 [facility] Comment on above: Performed By: #### C BC #### [facility] [address] [place] [address] Dr. Geri Pradhan WBC 9.5 103/ul Normal 4.0-11.0 [facility] Comment on above: Performed By: #### C BC #### [facility] [address] [place] [address] Dr. Geri Pradhan CULTURE BLOODon 09-01-2022 Microscopic examination of blood, culture Culture Observations: NO GROWTH AT 5 DAYS. Normal [facility] Comment on above: Performed By: #### P OCGLUC #### [facility] [address] [place] [address] Dr. Geri Pradhan CULTURE URINEon 09-01-2022 CULTURE URINE Culture Observations : EDUARDO TO FOLLOW. Isolate 1 Pseudomonas aeruginosa 10,000 cfu/mL of Normal [facility] Comment on above: Performed By: #### P OCGLUC #### [facility] [address] [place] [address] Dr. Geri Pradhan ER URINE PROFILEon 3 Bilirubin Ql (U) Negative Normal NEGATIVE [facility] Comment on above: Performed By: #### P OCGLUC #### [facility] [address] [place] [address] Dr. Geri Pradhan Clarity (U) CLEAR Normal CLEAR [facility] Comment on above: Performed By: #### P OCGLUC #### [facility] [address] [place] [address] Dr. Geri Pradhan Color (U) LT. YELLOW Normal YELLOW [facility] Comment on above: Performed By: #### P OCGLUC #### [facility] [address] [place] [address] Dr. Geri Pradhan ERUAHD A micrscopic examination will be performed if indicated. Normal [facility] Comment on above: Performed By: #### P OCGLUC #### [facility] [address] [address] [address] Geri Pradhan Glucose Ql (U) Negative Normal NEGATIVE [facility] Comment on above: Performed By: #### P OCGLUC #### [facility] [address] [address] [address] Geri Pradhan Hemoglobin Ql (U) TRACE-INTACT Abnormal NEGATIVE [facility] Comment on above: Performed By: #### P OCGLUC #### [facility] [address] [address] [address] Geri Pradhan Ketones Ql (U) Negative Normal NEGATIVE [facility] Comment on above: Performed By: #### P OCGLUC #### [facility] [address] [place] [address] Dr. Geri Pradhan LEUKOCYTES MODERATE Abnormal NEGATIVE [facility] Comment on above: Performed By: #### P OCGLUC #### [facility] [address] [address] [address] Geri Pradhan Nitrite Ql (U) Negative Normal NEGATIVE [facility] Comment on above: Performed By: #### P OCGLUC #### [facility] [address] [place] [address] Dr. Geri Pradhan pH (U) 6.5 [pH] Normal 5-9 [facility] Comment on above: Performed By: #### P OCGLUC #### [facility] [address] [place] [address] Dr. Geri Pradhan SPEC GRAVITY 1.010 Normal 1.005-<=1.02 5 [facility] Comment on above: Performed By: #### P OCGLUC #### [facility] [address] [address] [address] Geri Pradhan UA PROTEIN Negative Normal NEGATIVE/ TRACE [facility] Comment on above: Performed By: #### P OCGLUC #### [facility] [address] [place] [address] Dr. Geri Pradhan UR MICRO IND INDICATED Normal [facility] Comment on above: Performed By: #### P OCGLUC #### [facility] [address] [address] [address] Geri Pradhan Urobilinogen Qn (U) 0.2 {Lelia'U}/dL Normal 0.2 - 1. 0 [facility] Comment on above: Performed By: #### P OCGLUC #### [facility] [address] [address] [address] Geri Pradhan LACTATE/LACTIC ACIDon 2022 Lactate [Moles/Vol] 0.7 mmol/L Normal 0.4-2.[address] [facility] Comment on above: Performed By: #### T JUAN JOSE, CMP #### [facility] [address] [address] [address] Geri Pradhan PROF 14(COMP METB)on 023 Albumin [Mass/Vol] 3.3 g/dL Critically low 3.4-5.0 [facility] Comment on above: Performed By: #### P OCGLUC #### [facility] [address] [place] [address] Dr. Geri Pradhan Albumin/Globulin [Mass ratio] 0.7 {ratio} Normal [facility] Comment on above: Performed By: #### P OCGLUC #### [facility] [address] [place] [address] Dr. Geri Pradhan ALP [Catalytic activity/Vol] 81 U/L Normal 46-116 [facility] Comment on above: Performed By: #### P OCGLUC #### [facility] [address] [place] [address] Dr. Geri Pradhan ALT [Catalytic activity/Vol] 19 U/L Normal 14-59 [facility] Comment on above: Performed By: #### P OCGLUC #### [facility] [address] [place] [address] Dr. Geri Pradhan Anion gap [Moles/Vol] 3.1 mmol/L Normal [facility] Comment on above: Performed By: #### P OCGLUC #### [facility] [address] [place] [address] Dr. Geri Pradhan AST [Catalytic activity/Vol] 16 U/L Normal 15-37 [facility] Comment on above: Performed By: #### P OCGLUC #### [facility] [address] [address] [address] Geri Pradhan Bilirubin [Mass/Vol] 0.2 mg/dL Normal 0.2-1.0 [facility] Comment on above: Performed By: #### P OCGLUC #### [facility] [address] [address] [address] Geri Pradhan Calcium [Mass/Vol] 9.8 mg/dL Normal 8.5-10.1 [facility] Comment on above: Performed By: #### P OCGLUC #### [facility] [address] [address] [address] Geri Pradhan Chloride [Moles/Vol] 93 mmol/L Critically low 98-107 [facility] Comment on above: Performed By: #### P OCGLUC #### [facility] [address] [address] [address] Geri Pradhan CO2 [Moles/Vol] 45.3 mmol/L Critically high 21.0-32.0 [facility] Comment on above: Performed By: #### P OCGLUC #### [facility] [address] [place] [address] Dr. Geri Pradhan Creatinine [Mass/Vol] 0.51 mg/dL Critically low 0.55-1.02 [facility] Comment on above: Performed By: #### P OCGLUC #### [facility] [address] [address] [address] Geri Pradhan EGFR-AF VIETNAMESE >60 Normal >=60 [facility] Comment on above: Performed By: #### P OCGLUC #### [facility] [address] [address] [address] Geri Pradhan EGFR-NON AF VIETNAMESE >60 Normal >=60 [facility] Comment on above: Performed By: #### P OCGLUC #### [facility] [address] [place] [address] Dr. Geri Pradhan Globulin (S) [Mass/Vol] 4.8 g/dL Normal [facility] Comment on above: Performed By: #### P OCGLUC #### [facility] [address] [address] [address] Geri Pradhan Glucose [Mass/Vol] 98 mg/dL Normal 74-106 [facility] Comment on above: Performed By: #### P OCGLUC #### [facility] [address] [address] [address] Geri Pradhan Potassium [Moles/Vol] 3.4 mmol/L Critically low 3.5-5.1 [facility] Comment on above: Performed By: #### P OCGLUC #### [facility] [address] [address] [address] Geri Pradhan Protein [Mass/Vol] 8.1 g/dL Normal 6.4-8.2 [facility] Comment on above: Performed By: #### P OCGLUC #### [facility] [address] [address] [address] Geri Pradhan Sodium [Moles/Vol] 138 mmol/L Normal 136-145 [facility] Comment on above: Performed By: #### P OCGLUC #### [facility] [address] [address] [address] Geri Pradhan Urea nitrogen [Mass/Vol] 11.0 mg/dL Normal 7.0-18.0 [facility] Comment on above: Performed By: #### P OCGLUC #### [facility] [address] [address] [address] Geri Pradhan Urea nitrogen/Creatinine [Mass ratio] 21.6 mg/mg Normal [facility] Comment on above: Performed By: #### P OCGLUC #### [facility] [address] [address] [address] Geri Pradhan PROTIMEon 09-01-2022 INR Coag (PPP) [Relative time] 0.96 {INR} Normal [facility] Comment on above: Performed By: #### T JUAN JOSE, CMP #### [facility] [address] [address] [address] Geri Pradhan INR GUIDELINES SEE BELOW Normal [facility] Comment on above: Result Comment: KAROL RED INR: 2.0 - 3.0 CONDITIONS NOT LISTED BELOW 2.5 - 3.5 FOR PROSTHETIC HEART VALVE REPLACEMENT 2.5 - 3.5 RECURRENT THROMBOSIS Performed By: #### T JUAN JOSE, CMP #### [facility] [address] [place] [address] Dr. Geri Pradhan PT Coag (PPP) [Time] 10.2 s Normal 9.0-11.6 [facility] Comment on above: Performed By: #### Gerry INGRAM, CMP #### [facility] [address] [place] [address] Dr. Geri Pradhan PTTon 09-01-2022 aPTT Coag (Bld) [Time] 25.5 s Normal 22.3-36.2 [facility] Comment on above: Performed By: #### Gerry INGRAM CMP #### [facility] [address] [place] [address] Dr. Geri Pradhan URINE MICROSCOPIC ONLYon BACTERIA NONE SEEN Normal NONE SEEN [facility] Comment on above: Performed By: #### P OCGLUC #### [facility] [address] [place] [address] Dr. Geri Pradhan Bacteria identified Cx Nom (U) INDICATED Normal [facility] Comment on above: Performed By: #### P OCGLUC #### [facility] [address] [place] [address] Dr. Geri Pradhan CAST NONE SEEN Normal NONE SEEN [facility] Comment on above: Performed By: #### P OCGLUC #### [facility] [address] [place] [address] Dr. Geri Pradhan Crystals LM Nom (Urine sed) NONE SEEN Normal NONE SEEN [facility] Comment on above: Performed By: #### P OCGLUC #### [facility] [address] [place] [address] Dr. Geri Pradhan Epithelial cells LM Ql (Urine sed) FEW Abnormal NONE SEEN /RARE [facility] Comment on above: Performed By: #### P OCGLUC #### [facility] [address] [place] [address] Dr. Geri Pradhan MUCOUS NONE SEEN Normal NONE SEEN [facility] Comment on above: Performed By: #### P OCGLUC #### [facility] [address] [place] [address] Dr. Geri Pradhan RBC 0-2 Normal 0-2 [facility] Comment on above: Performed By: #### P OCGLUC #### [facility] [address] [place] [address] Dr. Geri Pradhan WBC 10-20 Abnormal NONE SEEN [facility] Comment on above: Performed By: #### P OCGLUC #### [facility] [address] [place] [address] Dr. Geri Pradhan XR CHEST 1 Von [...] by: EAMON ANDREWS Date: 2022-09-01 20:18 Normal [facility] ASPERGILLUS GALACTOMANNAN AN TIGEN DETECTon 05-28-2022 Aspergillus Ag, BAL/Serum 0.07 Index Normal 0.00-0.49 [facility] Comment on above: Result Comment: Perf ormed at: BN Performed By: #### Gerry INGRAM CMP #### [facility] [address] [place] [address] Dr. Geri Pradhan Test Information . Normal [facility] Comment on above: Result Comment: Perf ormed at: TG Performed By: #### T JUAN JOSE CMP #### [facility] [address] [place] [address] Dr. Geri Pradhan ASPERGILLUS AB, QUANTITATIVE DIDon 05-27-2022 Aspergillus flavus Negative Normal Neg:<1:1 [facility] Comment on above: Performed By: #### Gerry INGRAM CMP #### [facility] [address] [place] [address] Dr. Geri Pradhan Aspergillus fumigatus Negative Normal Neg:<1:1 [facility] Comment on above: Performed By: #### T JUAN JOSE, CMP #### [facility] [address] [address] [address] Geri Pradhan Aspergillus niger Negative Normal Neg:<1:1 [facility] [place] Comment on above: Performed By: #### Gerry INGRAM, CMP #### [facility] [address] [address] [address] Geri Pradhan CULTURE SPUTUMon 05-23-2022 CULTURE SPUTUM Culture Observations : NORMAL RESPIRATORY NAVA. Normal [facility] Comment on above: Performed By: #### P OCGLUC #### [facility] [address] [address] [address] Geri Pradhan SPUTUM GRAM STAINon 05-23-19 COMMENTS Normal [facility] [place] [facility] Comment on above: Performed By: #### Gerry INGRAM, CMP #### [facility] [address] [address] [address] Geri Pradhan DIPHTHEROIDS [facility] Comment on above: Performed By: #### Gerry INGRAM, CMP #### [facility] [address] [address] [address] Geri Pradhan EPITHELIALS <25 Normal [facility] [place] [facility] Comment on above: Performed By: #### Gerry INGRAM CMP #### [facility] [address] [address] [address] Geri Pradhan FUNGAL ELEMENTS Normal [facility] Comment on above: Performed By: #### Gerry INGRAM CMP #### [facility] [address] [address] [address] Geri SY NEG BACILLI Normal [facility] Comment on above: Performed By: #### Gerry INGRAM, CMP #### [facility] [address] [address] [address] Geri SY NEG DIPPLOCOCCI Normal [facility] [place] [facility] Comment on above: Performed By: #### Gerry INGRAM, CMP #### [facility] [address] [address] [address] Geri SY POS BACILLI Normal [facility] Comment on above: Performed By: #### Gerry INGRAM CMP #### [facility] [address] [address] [address] Geri Pradhan GRAM POSITIVE COCCI MODERATE Normal [facility] Comment on above: Performed By: #### Gerry INGRAM CMP #### [facility] [address] [address] [address] Geri Pradhan WBC (Bld) [#/Vol] 10*3/uL Normal The [facility] [place] Comment on above: Performed By: #### Gerry INGRAM CMP #### [facility] [address] [address] [address] Geri Pradhan BRONCHOSCOPYon 05-09-2022 [facility] Covid-19 PCR (CVDTBH)on 04-14 SARS-CoV-2 (COVID-19) RNA KRUNAL+probe Ql (Unsp spec) Not detected Normal NOT DETECTED [facility] Comment on above: Result Comment: This test is not yet approved or cleared by the [place] FDA. When there are no FDA-approved or cleared tests available, and other criteria are met, FDA can make tests available under an emergency access mechanism called an Emergency Use Authorization (EUA). The EUA for this test is supported by the [place] of Health and Human Service's (HHS's) declaration [...] SARS-CoV-2. Performed By: #### R SPLUS #### [facility] [address] [address] [address] Geri Pradhan Covid-19 PCR (CVDTBH)on 03-14 SARS-CoV-2 (COVID-19) RNA KRUNAL+probe Ql (Unsp spec) Not detected Normal NOT DETECTED [facility] Comment on above: Result Comment: This test is not yet approved or cleared by the [place] FDA. When there are no FDA-approved or cleared tests available, and other criteria are met, FDA can make tests available under an emergency access mechanism called an Emergency Use Authorization (EUA). The EUA for this test is supported by the [employer] of Health and Human Service's (HHS's) declaration [...] Performed By: #### Gerry INGRAM, CMP #### [facility] [address] [place] [address] Dr. Geri Pradhan INFLUENZA A AND B [facility] 04-08 [facility] SEE BELOW Normal [facility] [place] [facility] Comment on above: Result Comment: Nega tive for Flu A protein angiten. Infection due to Flu A cannot be ruled out. Flu A angiten in the sample may be below the detection limit of the test. Performed By: #### Gerry INGRAM, CMP #### [facility] [address] [place] [address] Dr. [facility] Normal [facility] [place] [facility] Comment on above: Result Comment: Nega tive for Flu B protein antigen. Infection due to Flu B cannot be ruled out. Flu B antigen in the sample may be below the detection limit of the test. Performed By: #### T JUAN JOSE, CMP #### [facility] [address] [place] [address] Dr. Geri Pradhan INFLUENZA A AG Negative Normal NEGATIVE SEE COMMENT [facility] Comment on above: Performed By: #### Gerry INGRAM, CMP #### [facility] [address] [place] [address] Dr. Geri Pradhan INFLUENZA B AG Negative Normal NEGATIVE SEE COMMENT [facility] Comment on above: Performed By: #### T JUAN JOSE, CMP #### [facility] [address] [place], [place] [address] Dr. Geri Pradhan INTERNAL CONTROLS Within Normal Limits Normal Wi thin Normal Limits [facility] Comment on above: Performed By: #### Gerry INGRAM CMP #### [facility] [address] [place], [place] [address] CHEST W CONon [...] JULES RAMIREZ Date: 2022-02-17 08:02 Normal [facility] CREATININEon 02-15-2022 Creatinine [Mass/Vol] 0.52 mg/dL Critically low 0.55-1.02 [facility] Comment on above: Performed By: #### R SPLUS #### [facility] [address] [address] [address] Geri Pradhan EGFR-AF VIETNAMESE >60 Normal >=60 The [facility] Comment on above: Performed By: #### R SPLUS #### [facility] [address] [address] [address] Geri Pradhan EGFR-NON AF VIETNAMESE >60 Normal >=60 [facility] Comment on above: Performed By: #### R SPLUS #### [facility] [address] [address] [address] Geri Pradhan CULTURE SPUTUMon 02-11-2022 CULTURE SPUTUM Isolate 1 Milagros albicans Light growth of Normal [facility] Comment on above: Performed By: #### S PUTCX #### [facility] [address] [place] [address] Dr. Geri Pradhan SPUTUM GRAM STAINon 02-12-20 COMMENTS Normal [facility] Comment on above: Performed By: #### R SPLUS #### [facility] [address] [address] [address] Geri Pradhan DIPHTHEROIDS Normal [facility] Comment on above: Performed By: #### R SPLUS #### [facility] [address] [address] [address] Geri Pradhan EPITHELIALS <25 Normal [facility] Comment on above: Performed By: #### R SPLUS #### [facility] [address] [address] [address] Geri Pradhan FUNGAL ELEMENTS Normal The [facility] Comment on above: Performed By: #### R SPLUS #### [facility] [address] [address] [address] Geri Pradhan GRAM NEG BACILLI Normal [facility] Comment on above: Performed By: #### R SPLUS #### [facility] [address] [place] [address] Dr. Geri SY NEG DIPPLOCOCCI Normal [facility] Comment on above: Performed By: #### R SPLUS #### [facility] [address] [place] [address] Dr. Geri Pradhan GRAM POS BACILLI Normal [facility] Comment on above: Performed By: #### R SPLUS #### [facility] [address] [place], [place] [address] Dr. Geri Pradhan GRAM POSITIVE COCCI MODERATE Normal [facility] Comment on above: Performed By: #### R SPLUS #### [facility] [address] [place], [place] [address] Dr. Geri Pradhan WBC (Bld) [#/Vol] 10*3/uL Normal [facility] Comment on above: Performed By: #### R SPLUS #### [facility] [address] [place], [place] [address] Dr. Geri Pradhan Covid-19 PCR (CVDTBH)on 11-13 SARS-CoV-2 (COVID-19) RNA KRUNAL+probe Ql (Unsp spec) Detected Critically abnormal NOT DETECTED [facility] Comment on above: Result Comment: This test is not yet approved or cleared by the [place] FDA. When there are no FDA-approved or cleared tests available, and other criteria are met, FDA can make tests available under an emergency access mechanism called an Emergency Use Authorization (EUA). The EUA for this test is supported by the [employer] of Health and Human Service's (HHS's) declaration [...] used). Performed By: #### C VDTBH #### [facility] [address] [place], [place] [address] Dr. Geri Pradhan General Surgery Office/Clini c Noteon 03-25-2021 General Surgery Office/Clinic Note Chief Complaint in-office excisional biopsy HPI Staff Presents for in-office excisional biopsy right shinto and right lower extremity. No change since last evaluation. History of Present Illness here for excision of right shinto and RLE lesions; no change since recent [...] and draped; anesthetized with 1% lidocaine; right shinto lesion excised in an elliptical fashion down [...] Cardiac arrest: Mother, Father and Sister. Normal [facility] Comment on above: Result Comment: Elec tronically Signed By: JIM DAVENPORT, Jose Gonzalez.giana\Date and Time Signed: 03/25/21 17:02 EST Ambulatory Clinical Summaryo n 02-12-2021 Ambulatory Clinical Summary {[id number]}CD:[id number] Normal [facility] General Surgery Office/Clini c Noteon 02-12-2021 General Surgery Office/Clinic Note Chief Complaint follow up in-office excisional biopsy HPI Staff 11 day post operative follow up post in-office excisional biopsy right shinto and right lower extremity. Sutures intact. Denies bleeding or drainage from incision site. History of Present Illness 11 days s/p excisional biopsy changing lesions right shinto and right lower extremity; doing well, no drainage; shinto lesion basal cell carcinoma, margins not commented [...] Brother. Cardiac arrest: Mother, Father and Sister. [facility] Comment on above: Result Comment: Elec tronically Signed By: JIM DAVENPORT, Jose Domínguez\Date and Time Signed: 02/12/21 13:16 EDT Pathology Noteon 02-06-2021 Pathology Note [id number] 0CD:127 Normal [facility] Ambulatory Clinical Summaryo n 01-11-2021 Ambulatory Clinical Summary {[id number]}CD:[id number] [facility] Ambulatory Clinical Summary {[id number]}CD:[id number] Normal [facility] Physician Referralon 021 Physician Referral [id number] 0CD:127 Normal [facility] [id number] 03-02-2018 Protein mass conc NAME : ELAINE GUERRERO D : [id number] : 1960 Gender : FemaleRace : CaucasianORD : [id number] Procedure Date : Mar 02 2018 12:58:22Edit Date : Mar 02 2018 14:15:37 Diagnosis:NORMAL SINUS RHYTHMRIGHT ATRIAL ENLARGEMENTMINIMAL VOLTAGE CRITERIA FOR LVH, MAY BE NORMAL VARIANTBORDERLINE ECGNO PREVIOUS ECGS AVAILABLEConfirmed by CORNELIA ROGERS M.D. ([id number]) on 03/02/2018 2:15:27 PM Ventricular Rate : 86 BPMAtrial Rate : 86 BPMP-R Interval : 178 msQRS Duration : 72 msQ-T Interval : 374 msQTC Calculation(Bezet) : 447 msP [place] : 88 degreesR [place] : 78 degreesT [place] : 79 degrees Test Reason : Location : 49 : [place] Overread By : KEN Maier,MIHIRJAYEdited By : KEN Maier,JEAN-CLAUDEYReferred By : DUGLAS FERNANDEZAcquired by : CELESTE GILLESPIE [facility] Vital Signs Date Time Vital Sign Value Performing Clinician Facility 12-03-2023 09:31-0400 Body height 162.56 cm [facility] 12-03-2023 09:31-0400 Body mass index (BMI) [Ratio] 16 kg/m2 [facility] 12-03-2023 09:31-0400 Body temperature 97.8 [degF] [facility] 12-03-2023 09:31-0400 Body weight 42.18 kg [facility] 12-03-2023 09:31-0400 Diastolic blood pressure 72 mm[Hg] [facility] 12-03-2023 09:31-0400 Heart rate 100 /min [facility] 12-03-2023 09:31-0400 Inhaled oxygen flow rate 2 L/min [facility] 12-03-2023 09:31-0400 Respiratory rate 20 /min [facility] 12-03-2023 09:31-0400 SaO2% (BldA) [Mass fraction] 94 % [facility] 12-03-2023 09:31-0400 Systolic blood pressure 115 mm[Hg] [facility] 11-17-2023 14:50-0400 Body height 162.6 cm [facility] 1 Work Phone: [facility] 11-17-2023 14:50-0400 Body mass index (BMI) [Ratio] 16.01 kg/m2 [facility] 1 Work Phone: [facility] 11-17-2023 14:50-0400 Body temperature 97.2 [degF] [facility] Work Phone: [facility] 11-17-2023 14:50-0400 Body weight 42.3 kg [facility] Work Phone: [facility] 11-17-2023 14:50-0400 Diastolic blood pressure 64 mm[Hg] [facility] Work Phone: [facility] 11-17-2023 14:50-0400 Heart rate 118 /min [facility] Work Phone: [facility] 11-17-2023 14:50-0400 Respiratory rate 16 /min [facility] Work Phone: [facility] 11-17-2023 14:50-0400 SaO2% (BldA) [Mass fraction] 95 % [facility] Work Phone: [facility] Comment on above: 2l 11-17-2023 14:50-0400 Systolic blood pressure 121 mm[Hg] [facility] Work Phone: [facility] 09-29-2023 13:29-0400 Body height 162.56 cm [facility] 09-29-2023 13:29-0400 Body mass index (BMI) [Ratio] 16.1 kg/m2 [facility] 09-29-2023 13:29-0400 Body temperature 96.2 [degF] [facility] 09-29-2023 13:29-0400 Body weight 42.63 kg [facility] 09-29-2023 13:29-0400 Diastolic blood pressure 74 mm[Hg] [facility] 09-29-2023 13:29-0400 Heart rate 92 /min [facility] 09-29-2023 13:29-0400 Respiratory rate 20 /min [facility] 09-29-2023 13:29-0400 SaO2% (BldA) [Mass fraction] 91 % [facility] 09-29-2023 13:29-0400 Systolic blood pressure 134 mm[Hg] [facility] 09-16-2023 11:30-0400 Diastolic blood pressure 69 mm[Hg] Khushboo Mcintyre MD, MD Work Phone: [facility] 09-16-2023 11:30-0400 Heart rate 102 /min Khushboo Mcintyre MD, MD Work Phone: [facility] 09-16-2023 11:30-0400 Respiratory rate 16 /min Khushboo Mcintyre MD, MD Work Phone: [facility] 09-16-2023 11:30-0400 SaO2% (BldA) [Mass fraction] 97 % Khushboo Mcintyre MD, MD Work Phone: [facility] 09-16-2023 11:30-0400 Systolic blood pressure 146 mm[Hg] Khushboo Mcintyre MD, MD Work Phone: [facility] 09-16-2023 09:02-0400 Body temperature 97.5 [degF] Khushboo Mcintyre MD, MD Work Phone: [facility] 05-17-2023 12:14-0500 Heart rate 120 /min [facility] 05-17-2023 12:14-0500 Respiratory rate 22 /min [facility] 05-17-2023 11:04-0500 Diastolic blood pressure 76 mm[Hg] [facility] 05-17-2023 11:04-0500 Inhaled oxygen flow rate 2 L/min [facility] 05-17-2023 11:04-0500 SaO2% (BldA) [Mass fraction] 97 % [facility] 05-17-2023 11:04-0500 Systolic blood pressure 117 mm[Hg] [facility] 05-17-2023 07:32-0500 Body temperature 97.4 [degF] [facility] 05-17-2023 03:19-0500 Body weight 39.2 kg [facility] 05-14-2023 16:31-0500 Body height 162.56 cm [facility] 05-14-2023 01:40-0500 Diastolic blood pressure 57 mm[Hg] [facility] 05-14-2023 01:40-0500 Heart rate 119 /min [facility] 05-14-2023 01:40-0500 Inhaled oxygen flow rate 2 L/min [facility] 05-14-2023 01:40-0500 Respiratory rate 22 /min [facility] 05-14-2023 01:40-0500 SaO2% (BldA) [Mass fraction] 91 % [facility] 05-14-2023 01:40-0500 Systolic blood pressure 119 mm[Hg] [facility] 05-13-2023 16:49-0500 Body height 162.56 cm [facility] 05-13-2023 16:49-0500 Body temperature 97.9 [degF] [facility] 05-13-2023 16:49-0500 Body weight 40.36 kg [facility] 11-27-2022 10:34-0400 Body temperature 96.01 [degF] Abdi Israel MD Work Phone: [facility] 11-27-2022 10:34-0400 Body weight 45.18 kg Abdi Israel MD Work Phone: [facility] 11-27-2022 10:34-0400 Diastolic blood pressure 82 mm[Hg] Abdi Israel MD Work Phone: [facility] 11-27-2022 10:34-0400 Heart rate 110 /min Abdi Israel MD Work Phone: [facility] 11-27-2022 10:34-0400 Respiratory rate 20 /min Abdi Israel MD Work Phone: [facility] 11-27-2022 10:34-0400 SaO2% (BldA) [Mass fraction] 89 % Abdi Israel MD Work Phone: [facility] 11-27-2022 10:34-0400 Systolic blood pressure 132 mm[Hg] Abdi Israel MD Work Phone: [facility] 06-26-2022 15:00-0400 Body height 162.56 cm Jose Conde Other [employer] Other 06-26-2022 15:00-0400 Body mass index (BMI) [Ratio] 18.02 kg/m2 Jose Conde Other [employer] Other 06-26-2022 15:00-0400 Body temperature 97.2 [degF] oJse Conde Other [employer] Other 06-26-2022 15:00-0400 Body weight 47.63 kg Jose Conde Other [employer] Other 06-26-2022 15:00-0400 Diastolic blood pressure 80 mm[Hg] Jose Conde Other [employer] Other 06-26-2022 15:00-0400 Systolic blood pressure 128 mm[Hg] Jose Conde Other [employer] Other 06-02-2022 14:09-0500 Body temperature 97.7 [degF] Abdi Israel MD Work Phone: [facility] 06-02-2022 14:09-0500 Body weight 49.35 kg Abdi Israel MD Work Phone: [facility] 06-02-2022 14:09-0500 Diastolic blood pressure 78 mm[Hg] Abdi Israel MD Work Phone: [facility] 06-02-2022 14:09-0500 Heart rate 116 /min Abdi Israel MD Work Phone: [facility] 06-02-2022 14:09-0500 Respiratory rate 18 /min Abdi Israel MD Work Phone: [facility] 06-02-2022 14:09-0500 SaO2% (BldA) [Mass fraction] 89 % Abdi Israel MD Work Phone: [facility] 06-02-2022 14:09-0500 Systolic blood pressure 125 mm[Hg] Abdi Israel MD Work Phone: [facility] 05-22-2022 15:15-0500 Body height 162.56 cm Jose Elton Other [employer] Other 05-22-2022 15:15-0500 Body mass index (BMI) [Ratio] 18.02 kg/m2 Jose Elton Other [employer] Other 05-22-2022 15:15-0500 Body temperature 98.2 [degF] Jose Conde Other [employer] Other 05-22-2022 15:15-0500 Body weight 47.63 kg Jose Conde Other [employer] Other 05-22-2022 15:15-0500 Diastolic blood pressure 78 mm[Hg] Jose Conde Other [employer] Other 05-22-2022 15:15-0500 Systolic blood pressure 130 mm[Hg] Jose Conde Other [employer] Other 05-09-2022 10:30-0500 Diastolic blood pressure 80 mm[Hg] Yasmin Waggoner MD Work Phone: [facility] 05-09-2022 10:30-0500 Heart rate 99 /min Yasmin Waggoner MD Work Phone: [facility] 05-09-2022 10:30-0500 Respiratory rate 16 /min Yasmin Waggoner MD Work Phone: [facility] 05-09-2022 10:30-0500 SaO2% (BldA) [Mass fraction] 97 % Yasmin Waggoner MD Work Phone: [facility] 05-09-2022 10:30-0500 Systolic blood pressure 134 mm[Hg] Yasmin Waggoner MD Work Phone: [facility] 05-09-2022 10:02-0500 Body temperature 98.2 [degF] Yasmin Waggoner MD Work Phone: [facility] 05-09-2022 07:03-0500 Body height 162.6 cm Yasmin Waggoner MD Work Phone: [facility] 05-09-2022 07:03-0500 Body weight 47.63 kg Yasmin Waggoner MD Work Phone: [facility] 03-14-2022 11:22-0500 Body temperature 97.81 [degF] Abdi Israel MD Work Phone: [facility] 03-14-2022 11:22-0500 Body weight 49.9 kg Abdi Israel MD Work Phone: [facility] 03-14-2022 11:22-0500 Heart rate 101 /min Abdi Israel MD Work Phone: [facility] 03-14-2022 11:22-0500 Respiratory rate 16 /min Abdi Israel MD Work Phone: [facility] 03-14-2022 11:22-0500 SaO2% (BldA) [Mass fraction] 96 % Abdi Israel MD Work Phone: [facility] 06-06-2021 10:01-0500 Body temperature 97.7 [degF] Abdi Israel MD Work Phone: [facility] 06-06-2021 10:01-0500 Body weight 51.71 kg Abdi Israel MD Work Phone: [facility] 06-06-2021 10:01-0500 Diastolic blood pressure 67 mm[Hg] Abdi Israel MD Work Phone: [facility] 06-06-2021 10:01-0500 Heart rate 97 /min Abdi Israel MD Work Phone: [facility] 06-06-2021 10:01-0500 Respiratory rate 20 /min Abdi Israel MD Work Phone: [facility] 06-06-2021 10:01-0500 SaO2% (BldA) [Mass fraction] 93 % Abdi Israel MD Work Phone: [facility] 06-06-2021 10:01-0500 Systolic blood pressure 120 mm[Hg] Abdi Israel MD Work Phone: [facility] Encounters Encounter Date Encounter Type Care Provider Facility Start: 12-03-2023 End: 12-03-2023 ambulatory [facility] Work Phone: Start: 12-03-2023 End: 12-03-2023 Patient encounter procedure On License Of [facility] Work Phone: Start: 11-19-2023 Telephone encounter Teo Craft MD Work Phone: [facility] Comment on above: Patient Update Start: 11-18-2023 End: 11-18-2023 ambulatory [facility] Facility:[facility] Start: 11-17-2023 End: 11-17-2023 ambulatory [facility] Facility:[facility] Start: 11-17-2023 Encounter for other preprocedural examination [facility] Start: 11-17-2023 End: 11-17-2023 Admission to [address] [place] [id number] Work Phone: Pre Anesthesia Start: 11-17-2023 End: 11-17-2023 Anesthesia consultation [place] [id number] Work Phone: Pre Anesthesia Comment on above: Preoperative examina tion (Primary Dx); 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); Non-small cell cancer of left lung (HCC); Chronic respiratory failure with hypoxia (HCC); COPD, severe (HCC); Supplemental oxygen dependent; Former smoker Start: 11-17-2023 End: 11-17-2023 Preprocedural examination done [place] [id number] Work Phone: [facility] Work Phone: Start: 11-16-2023 End: 12-09-2023 Telephone encounter Abdi Israel MD Work Phone: Radiation Oncology Comment on above: Results Start: 10-27-2023 End: 10-27-2023 ambulatory ABDI ISRAEL Facility:[facility] Start: 10-27-2023 End: 10-27-2023 Patient encounter procedure Teo Craft MD Work Phone: Otolaryngology Comment on above: Lymphadenopathy (Marysol rowan Dx); Non-small cell cancer of left lung (HCC); 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) Start: 09-29-2023 End: 09-29-2023 ambulatory [facility] Work Phone: Start: 09-29-2023 End: 09-29-2023 Patient encounter procedure On License Of [facility] Work Phone: Start: 09-21-2023 Telephone encounter Abdi Israel MD Work Phone: Cancer [facility] Comment on above: Appointment Confirma tion Start: 09-16-2023 ambulatory [facility] Facility: [facility] Start: 09-16-2023 End: 09-16-2023 Subsequent hospital visit by physician Khushboo Mcintyre MD Work Phone: [phone] Comment on above: Malignant neoplasm o f unspecified part of unspecified bronchus or lung (HCC) [C34.90] Start: 09-14-2023 End: 09-14-2023 ambulatory [facility] Facility:[facility] Start: 09-09-2023 Orders Only Osito Galicia MD Work Phone: [facility] Comment on above: Neoplasm (Primary Dx ) Start: 09-08-2023 Telephone encounter Abdi Israel MD Work Phone: [facility] Comment on above: Cervical lymph node bx Biopsy Request Start: 09-01-2023 End: 09-01-2023 ambulatory ABDI ISRAEL Facility:[facility] Start: 08-17-2023 End: 08-17-2023 ambulatory CARLA MONTAGUE Not Available Start: 08-14-2023 Telephone encounter Abdi Israel MD Work Phone: Radiation Oncology Comment on above: Patient Update Start: 07-14-2023 End: 07-14-2023 ambulatory [facility] Not Available Start: 05-25-2023 End: 05-25-2023 ambulatory ADITHYA KENYON Facility:[facility] Start: 05-20-2023 Telephone encounter Abdi Israel MD Work Phone: Radiation Oncology Comment on above: Patient Update; Futu re Appointment Start: 05-14-2023 End: 05-17-2023 Evaluation and management of inpatient Ally Warner Facility:[facility] Start: 05-14-2023 Non-patient / Non-visit [facility] Work Phone: Start: 04-09-2023 End: [...] 06-26-2022 End: 06-26-2022 ambulatory Jose Conde Other [employer] Other Start: 06-26-2022 Office outpatient vi sit 25 minutes Jose Conde [facility] Start: 06-10-2022 End: 06-10-2022 ambulatory Jose Conde Other [employer] Other Start: 06-10-2022 Telephone encounter Jose Conde [facility] Infect[facility] Start: 06-02-2022 End: 06-02-2022 Patient encounter procedure Abdi Israel MD Work Phone: Radiation Oncology Comment on above: Non-small cell cance r of left lung (HCC) (Primary Dx) Start: 05-23-2022 End: 05-23-[address] JOSE CONDE Facility:[facility] Start: 05-22-2022 End: 05-23-[address] JOSE CONDE [facility] [employer] Other Start: 05-22-2022 Office outpatient ne w 45 minutes Jose Conde [facility] Infectious Disease Start: 05-14-2022 Telephone encounter Abdi Israel MD Work Phone: Radiation Oncology Comment on above: Appointment Start: 05-09-2022 End: 05-09-2022 Subsequent hospital visit by physician Yasmin Waggoner MD Work Phone: Admitting Comment on above: Bronchiolar disease [J98.09] Start: 05-08-2022 Encounter for preprocedural laboratory examination DR DOCTOR DAS [facility] Start: 05-06-2022 End: 05-06-2022 ambulatory [...] with patient Vitor Kaur MD Work Phone: [facility] Start: 04-24-2022 Telephone encounter Florina Hassan CT Pulmonary Medicine Comment on above: Appointment (PreOp Heath craranza) Start: 04-23-2022 Orders Only Alicja Reece APRN.OPTOMETRIC COORDINATOR Work Phone: Admitting Comment on above: Preoperative examina tion (Primary Dx) Appointment Start: 04-23-2022 Preprocedural examin ation done Alicja Reece APRN.OPTOMETRIC COORDINATOR Work Phone: Admitting Start: 04-22-2022 ambulatory Vitor [...] of lung Start: 03-02-2018 Patient encounter procedure [facility] Start: 03-24-2017 Ambulatory JAYE HOUGH Facil [id number] [...] Author Start: 11-16-2026 Diabetes Screening Diabetes Screening [facility] Start: 04-24-2025 DIABETES SCREEN DIABETES SCREEN [facility] Start: 04-24-2025 Diabetes Screening Diabetes Screening [facility] Start: 05-23-2024 End: 05-23-2024 Patient encounter procedure 05/23/2024 11:00 AM EST Office Visit Radiation Oncology [address] [place] [address] Abdi Israel MD [address] [place] [address] Followup Radiation Oncology Comment on above: Followup Start: 05-18-2024 End: 05-18-2024 Patient encounter procedure 05/18/2024 10:15 AM EST Appointment Radiology Pet CT [address] [place] [address] CT [address] Radiology Pet CT Comment on above: CT CHEST Start: 12-21-2023 End: 12-21-2023 ambulatory 12/21/2023 1:25 PM EDT [facility] Otolaryngology [address] [address] Teo Craft MD [address] [place] [address] post op Otolaryngology Comment on above: post op Start: 12-18-2023 End: 12-18-2023 Patient encounter procedure 12/18/2023 3:00 PM EDT Office Visit Radiation Oncology [address] [place] [address] Abdi Israel MD [address] [place] [address] followup Radiation Oncology Comment on above: followup Start: 12-15-2023 End: 12-15-2023 Patient encounter procedure 12/15/2023 2:15 PM EDT Appointment Radiology Pet CT [address] [facility] [place] [address] CT [address] Pet CT Comment on above: CT chest Start: 12-15-2023 End: 12-15-2023 Patient encounter procedure 12/15/2023 12:45 PM EDT Appointment Radiology Pet CT [address] [place] [address] [place] [address] Comment on above: PET Start: 12-13-2023 Influenza vaccination Influenza Vaccine (#1) [facility] Start: 11-18-2023 End: 11-18-2023 Admission to same day surgery center 11/18/2023 4:10 PM EDT - 11/18/2023 6:42 PM EDT Surgery Admitting [address] [place] [address] Teo Craft MD [address] [place] [address] BIOPSY OR EXCISION LYMPH NODE(S) OPEN, DEEP CERVICAL Admitting Comment on above: BIOPSY OR EXCISION LYMPH NODE(S) OPEN, D EEP CERVICAL Start: 11-18-2023 End: 11-18-2023 Bx/exc lymph node open deep cervical node BIOPSY OR EXCISION LYMPH NODE(S) OPEN, DEEP CERVICAL Non-small cell cancer of left lung (HCC) Lymphadenopathy 11/18/2023 4:10 PM EDT [facility] Start: 11-18-2023 Subsequent hospital visit by physician 11/18/2023 4:10 PM EDT Hospital Encounter Admitting [address] [place] [address] Teo Craft MD [address] [place] [address] Non-small cell cancer of left lung (HCC) [C34.92] Admitting Comment on above: Non-small cell cancer of left lung (HCC) [C34.92] Start: 10-27-2023 End: 10-27-2023 Patient encounter procedure 10/27/2023 11:00 AM EDT Office Visit Otolaryngology [address] [address] Teo Craft MD [address] [place] [address] excisional biopsy cervical lymph node; needle biopsy was negative Otolaryngology Comment on above: excisional biopsy cervical lymph node; n eedle biopsy was negative Start: 09-16-2023 End: 09-16-2023 Admission to same day surgery center 09/16/2023 10:00 AM EDT - 09/16/2023 11:00 AM EDT Surgery Angio [address] [place] [address] [place], [address] [facility] [address] [address] BIOPSY OR EXCISION LYMPH NODES(S) NEEDLE SUPERFICIAL [...] EDT Hospital Encounter Angio [address] [place] [address] [place] [address] [facility] [address] [address] Malignant neoplasm of unspecified part of unspecified bronchus or lung (HCC) [C34.90] Angio Comment on above: Malignant neoplasm of unspecified part o f unspecified bronchus or lung (HCC) [C34.90] Start: 09-09-2023 End: 12-09-2023 CBC panel - Blood by Automated count COMPLETE BLOOD COUNT Lab Routine Neoplasm Expected: 09/09/2023, Expires: 12/09/2023 [facility] Work Phone: Comment on above: Expected: 09/09/2023, Expires: Start: 09-01-2023 End: 09-01-2023 Patient encounter procedure 09/01/2023 12:45 PM EDT Appointment Radiology Pet CT [address] [place] [address] [place] [address] Comment on above: PET Start: 05-17-2023 [facility] Start: 05-14-2023 Administration of prophylactic treatment [facility] Start: 05-14-2023 End: 05-14-2023 [facility] Start: 05-14-2023 Hospital admission [facility] Start: 05-14-2023 Microbial culture of sputum [facility] Start: 05-13-2023 CT Chest [facility] Start: 05-13-2023 End: 07-13-2023 CREATININE BLD CREATININE BLD Lab Routine Neoplasm of lung Expected: 05/13/2023 (Approximate), Expires: 07/13/2023 [facility] Work Phone: Comment on above: Expected: 05/13/2023 (Approximate), Expi res: 07/13/2023 Start: 05-13-2023 End: 12-27-2023 CT CHEST W IVCON CT CHEST W IVCON Radiology Routine Neoplasm of lung Expected: 05/13/2023 (Approximate), Expires: 12/27/2023 [facility] Work Phone: Comment on above: Expected: 05/13/2023 (Approximate), Expi res: 12/27/2023 Start: 04-13-2023 Behavioral Health Screening Behavioral Health Screening [facility] Start: 04-13-2023 Depression Assessment Depression Assessment [facility] Start: 12-12-2022 Covid-19 Vaccine ( season) Covid-19 Vaccine () [facility] Start: 12-12-2022 Influenza vaccination [facility] Start: 06-06-2022 Adult depression screening assessment DEPRESSION SCREENING [facility] Start: 06-06-2022 End: 06-06-2022 CREATININE BLD CREATININE BLD Lab Routine Non-small cell cancer of left lung (HCC) Expected: 06/06/2022, Expires: 06/06/2022 [facility] Work Phone: Comment on above: Expected: 06/06/2022, Expires: Start: 06-06-2022 End: 07-06-2022 Ct thorax w/contrast material CT CHEST W IVCON Radiology Routine Non-small cell cancer of left lung (HCC) Neoplasm of lung Expected: 06/06/2022, Expires: 07/06/2022 [facility] Work Phone: Comment on above: Expected: 06/06/2022, Expires: 3 Start: 04-24-2022 End: 06-24-2022 SARS-CoV-2 (COVID-19) RNA [Presence] in Respiratory specimen by KRUNAL with probe detection INTERMEDIATE RAPID COVID Microbiology Routine Preoperative examination Expected: 04/24/2022, Expires: 06/24/2022 [facility] Work Phone: Comment on above: Expected: 04/24/2022, Expires: 3 Start: 04-22-2022 End: 06-22-2022 Basic metabolic 2000 panel - Serum or Plasma BASIC METABOLIC PNL Lab STAT Lung mass Expected: 04/22/2022, Expires: 06/22/2022 [facility] Work Phone: Comment on above: Expected: 04/22/2022, Expires: 3 Start: 04-22-2022 End: 06-22-2022 CBC W Auto Differential panel - Blood CBC + DIFF Lab STAT Lung mass Expected: 04/22/2022, Expires: 06/22/2022 [facility] Work Phone: Comment on above: Expected: 04/22/2022, Expires: 3 Start: 04-13-2022 DEPRESSION ASSESSMENT DEPRESSION ASSESSMENT [facility] Start: 12-12-2021 Influenza vaccination INFLUENZA (#1) [facility] Start: 2021 RSV Vaccine (1 - 1-dose 60+ series) RSV Vaccine (1 - 1-dose 60+ series) [facility] Start: 04-13-2021 DEPRESSION ASSESSMENT DEPRESSION ASSESSMENT [facility] Start: 03-02-2021 DIABETES SCREEN DIABETES SCREEN [facility] Start: 08-26-2011 SHINGRIX VACCINE (1 of 2) SHINGRIX VACCINE (1 of 2) [facility] Start: 2006 COLOGUARD (FIT-DNA) COLOGUARD (FIT-DNA) [facility] Start: 2006 Colonoscopy COLONOSCOPY [facility] Start: 2006 COLORECTAL CANCER SCREENING COLORECTAL CANCER SCREENING [facility] Start: [address] COLONOGRAPHY [facility] Start: 2006 FECAL OCCULT BLOOD FECAL OCCULT BLOOD [facility] Start: 2006 Lipid panel Lipid Screening [facility] Start: 2006 LIPID SCREEN LIPID SCREEN [facility] Start: 2006 Screening for malignant neoplasm of colon [facility] Start: 2006 SIGMOIDOSCOPY SIGMOIDOSCOPY [facility] Start: 2001 Mammography MAMMOGRAM [facility] Start: 2001 Screening for malignant neoplasm of breast Mammogram Screening [facility] Start: 08-26-1991 HPV TESTING HPV TESTING [facility] Start: 08-26-1991 Screening for malignant neoplasm of cervix HPV Testing [facility] Start: 08-26-1991 Zoledronic acid therapy ALPHA-1 ANTITRYPSIN DEFICIENCY SCREENING [facility] Start: 1982 PAP TESTING PAP TESTING [facility] Start: 1982 Screening for malignant neoplasm of cervix [facility] Start: 1980 Urine microalbumin profile [facility] Start: 08-26-1979 ANNUAL PCP TEAM CHRONIC DISEASE VISIT ANNUAL PCP TEAM CHRONIC DISEASE VISIT [facility] Start: 08-26-1979 Anxiety Screening Anxiety Screening [facility] Start: 08-26-1979 Depression Screening Depression Screening [facility] Start: 08-26-1979 HEPATITIS C SCREENING HEPATITIS C SCREENING [facility] Start: 08-26-1979 Hepatitis C screening Hepatitis C Screening [facility] Start: 08-26-1979 HIV SCREENING HIV SCREENING [facility] Start: 08-26-1979 HIV screening HIV Screening [facility] Start: 08-26-1979 SPIROMETRY SPIROMETRY [facility] Start: 08-26-1967 PNEUMOCOCCAL (1 - PCV) PNEUMOCOCCAL (1 - PCV) [facility] Start: 08-26-1967 Pneumococcal vaccination Pneumococcal Vaccine (1 of 2 - PCV) [facility] Start: 1966 COVID-19 VACCINE (1) COVID-19 VACCINE (1) [facility] Start: 02-25-1962 COVID-19 VACCINE (#1) COVID-19 VACCINE (#1) [facility] Bx/exc lymph node op en superficial BIOPSY/REMOVAL, LYMPH NODE(S) Procedures ALEKS Non-small cell cancer of left lung (HCC) 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) Ordered: 09/21/2023 [facility] Work Phone: Comment on above: Ordered: 09/21/2023 End: 12-26-2024 CT Chest W contrast IV CT CHEST W IVCON Radiology Routine Malignant neoplasm of unspecified part of unspecified bronchus or lung (HCC) 1 Occurrences starting 11/27/2023 until 12/26/2024 [facility] Comment on above: 1 Occurrences starting 11/27/2023 until 12/26/2024 End: 05-22-2023 Ct thorax w/o contrast material CT CHEST WO IVCON Radiology Routine Lung mass 1 Occurrences starting 04/22/2022 until 05/22/2023 [facility] Work Phone: Comment on above: 1 Occurrences starting 04/22/2022 until 05/22/2023 CYTOLOGY NON-HAND SIGN WRITER [facility] Work Phone: Comment on above: Release Upon Ordering for 1 Occurrences starting 05/09/2022, 1 completed End: 04-22-2023 ECG COMPLETE ECG COMPLETE ECG STAT Lung mass 1 Occurrences starting 04/22/2022 until 04/22/2023 [facility] Work Phone: Comment on above: 1 Occurrences starting 04/22/2022 until 04/22/2023 Patient Education Chronic Obstru ctive Pulmonary Disease (COPD) (DC) Levofloxacin (Systemic) Pneumonia, Adult (DC) [facility] Work Phone: Patient referral [facility] Work Phone: End: 03-22-[address] attenuation skull base mid-thigh NM PET/CT SKULL-THIGH INITIAL Radiology Routine Neoplasm of lung 1 Occurrences starting 02/21/2022 until 03/22/2023 [facility] Work Phone: Comment on above: 1 Occurrences starting 02/21/2022 until 03/22/2023 End: 09-15-2024 PET+CT Guidance for localization of tumor of Skull base to mid-thigh-- W 18F-FDG IV NM PET/CT SKULL-THIGH SUBSEQUENT Radiology Routine Malignant neoplasm of unspecified part of unspecified bronchus or lung (HCC) 1 Occurrences starting 08/17/2023 until 09/15/2024 [facility] Work Phone: Comment on above: 1 Occurrences starting 08/17/2023 until 09/15/2024 End: 12-26-2024 PET+CT Guidance for localization of tumor of Skull base to mid-thigh-- W 18F-FDG IV NM PET/CT SKULL-THIGH SUBSEQUENT Radiology Routine Malignant neoplasm of unspecified part of unspecified bronchus or lung (HCC) 1 Occurrences starting 11/27/2023 until 12/26/2024 [facility] Work Phone: Comment on above: 1 Occurrences starting 11/27/2023 until 12/26/2024 SARS-CoV-2 (COVID-19 ) RNA [Presence] in Respiratory specimen by KRUNAL with probe detection SELF CHECK COVID Microbiology Routine Lung mass Ordered: 04/22/2022 [facility] Work Phone: Comment on above: Ordered: 04/22/2022 SURGICAL PATHOLOGY [facility] Work Phone: Comment on above: Release Upon Ordering for 1 Occurrences starting 05/09/2022, 1 completed End: 09-16-2023 SURGICAL PATHOLOGY [facility] Work Phone: Comment on above: ONCE for 1 Occurrences starting 09/16/19 24 until 09/16/2023, 1 completed [facility] Immunizations Immunization Date Immunization Notes Care Provider Roma ricks 02-27-2023 influenza virus vacc ine, unspecified formulation Pac 1 Work Phone: [facility] 03-04-2022 influenza, injectabl e, quadrivalent, preservative free Vitor Kaur MD Work Phone: [facility] 03-04-2022 influenza virus vacc ine, unspecified formulation Abdi Israel MD Work Phone: [facility] 03-19-2021 influenza, injectabl e, quadrivalent, preservative free Vitor Kaur MD Work Phone: [facility] 02-22-2021 influenza virus vacc ine, unspecified formulation Vitor Kaur MD Work Phone: [facility] 03-02-2020 Influenza, injectabl e, Madin [place] Canine Kidney, preservative free, quadrivalent Vitor Kaur MD Work Phone: [facility] 02-02-2019 Influenza, injectabl e, Madin [place] Canine Kidney, preservative free, quadrivalent Vitor Kaur MD Work Phone: [facility] 03-02-2018 influenza, injectabl e, quadrivalent, contains preservative Abdi Israel MD Work Phone: [facility] Payers Date Payer Category Payer Self-pay [id number] 2018 Medicaid [facility] [employer] [id number] 2018-Present [phone] [address] [place] [address] Medicaid [id number] 2018 Medicaid [id number] 1961 Unknown [id number] 1961 Unknown [id number] 1961 Unknown [id number] 1961 Unknown [id number] [id number] 1961 Unknown [id number] 1961 Unknown [id number] [id number] 1961 Unknown [id number] [id number] 1961 Unknown [id number] [id number] 1961 Unknown [id number] [id number] 1961 Unknown [id number] [id number] 1961 Unknown [id number] [id number] 1961 Unknown [id number] [id number] 1959 Self-pay [id number] 1959 Unknown [id number] 1959 Unknown [id number] Unknown [id number] Social History Date Type Detail Facility Start: 03-02-2018 End: 03-14-2022 Tobacco smoking status NHIS Ex-smoker [facility] Start: 04-13-1977 End: 04-13-2012 History of tobacco use Current smoker [facility] Start: 03-02-2018 End: 11-27-2022 Cigarettes smoked current (pack per day) - Reported 1.5 [facility] Start: 03-02-2018 End: 03-14-2022 Tobacco use and exposure Smokeless tobacco non-user [facility] Start: 06-06-2021 End: 10-27-2023 Alcohol intake Current drinker of alcohol (finding) [facility] Start: 1960 Sex Assigned At Not on file C [facility] Start: 05-07-2021 End: 03-14-2022 Exposure to SARS-CoV-2 (event) Not sure [facility] Start: 04-13-1977 End: 04-13-2012 History of tobacco use Cigarette Smoker [facility] Work Phone: Start: 03-14-2022 End: 11-27-2022 Sex Assigned At [facility] Adult Depression Screening Assessment 0 [facility] Start: 1960 Sex Assigned At Female F [facility] Clinical Notes 05-14-2011 to 12-07-2023 Teo Craft MD - 12/07/2023 12:20 AM EDTTelephone Encounter - Zamudio Sec, Rodney - 11/30/2023 8:22 AM EDTTelephone Encounter - Robb Lwoe, [facility] - 11/30/2023 8:22 AM EDT Note Date & Type Note Facility 12-07-2023 Note HNO ID: [id number] Author: TEO CRAFT MD Service: ? Author Type: Physician Type: Progress Notes Filed: 12/07/2023 00:32 Note Text: [facility] Consult This consult was requested by [...] mobility normal Neck Ultrasound: 12/07/2023 Ultrasound Machine: ClearFlow Transducer: Linear 11 MHz Regions examined: cervical lymph nodes Sagittal and transverse views were obtained. Color and power Doppler were applied when indicated. Left neck: For surgical planning I evaluated the left cervical lymph nodes with the ultrasound. Identified 2 separate lymph nodes we (more content not included)... [facility] 12-07-2023 History of Presen t illness Narrative [...] mobility normal Neck Ultrasound: 12/07/2023 Ultrasound Machine: ClearFlow Transducer: Linear 11 MHz Regions examined: cervical [...] Teo Craft MD documented in this encounter [facility] 11-30-2023 Telephone encounter Note Yes she has caresource unfornatuly. [facility] 11-30-2023 Miscellaneous Notes Yes she has caresource [...] ALEKS. Thank you documented in this encounter [facility] 11-30-2023 Telephone encounter Note Patient is called and scheduled for all appointments [facility] 11-27-2023 Telephone encounter Note Signed and added a CT chest as well. Thanks! Abdi [facility] 11-27-2023 Telephone encounter Note Rodney: Please schedule [facility] for a PET scan then follow up with Dr. Israel. Dr. Israel: Please sign pended PET order as we discussed today. Anita Pressley RN [facility] 11-19-2023 Telephone encounter Note Person Calling:[facility] Reason for Call: requesting a work excuse for her daughter Kendal Ruiz fir 11/17 & 11/18. Pt Phone #: [phone] Pharmacy Name and # : Pt last seen: Visit date not found Ananya HEARD [facility] 11-19-2023 Miscellaneous Notes Person Calling:[facility] Reason for Call: requesting a work excuse for her daughter Kendal Ruiz fir 11/17 & 11/18. Pt Phone #: [phone] Pharmacy Name and # : Pt last seen: Visit date not found Ananya HEARD documented in this encounter [facility] 11-18-2023 Note HNO ID: [id number] Author: DORON FLORENTINO MD Service: ? Author [...] Successful intubation technique: video laryngoscopy Devices used: [employer] Endotracheal tube insertion site: oral Blade size: [...] November 18, 2023 TIME: 3:55 PM CSN: [id number] [facility] 11-17-2023 Instructions Brie Kaur PA-C - 11/17/2023 3:21 PM EDT PATIENT PREOPERATIVE INSTRUCTIONS Teo Craft MD has scheduled you for your procedure at this surgery center: [facility] Scheduling Office: [phone] [address] [place], [place] [address]. Please read below carefully for your personalized instructions. Arrival Time for Surgery: - To obtain your arrival time for surgery, call your physician's office the day before your surgery. - If your surgery is scheduled for Thursday, call the Thursday before. Your surgeon s erosion control coordinator will tell you what time to call the office. - If you have not reached the departmental erosion control coordinator by 5 P.M., call [phone] after 5 P.M. the day before your [...] Procedures: - YOU MUST HAVE A RESPONSIBLE HEADLINER INSTALLER TAKE YOU HOME. A AT RISK SPECIALIST OR PHOTOGRAMMETRY AIRPLANE PILOT CANNOT BE MADE A RESPONSIBLE HEADLINER INSTALLER. - We recommend that a responsible [...] Advance Directive, please fax a copy to [phone] or email to for it to be [...] chart that day. documented in this encounter [facility] 11-17-2023 History and physical note Images from [...] via [place]. Follows with outside pulm at [facility], Dr. Valery DAVIS in October per pt. Diminished breath sounds bilaterally throughout, no wheezing. SpO2 95% on 2L O2. 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 Pt reports she called traveling freight agent's office because she felt like her breathing [...] large neck Non-male patient STOP-Bang Score: 1 [id number] Score: Age: <65 Sex: female CHF history: No Hypertension history: No Stroke/TIA/thromboembolism history: No Vascular disease history: No Diabetes history: No [id number] Score: 1 ANESTHESIA FINDINGS: Intubation History: No [...] Initiated: Orders placed by surgeon/surgical service in [facility]. Orders Placed This Encounter Complete [...] 11/18/23 (per pt, surgery currently 12/16/23 in [facility]) at . REVIEW OF SYSTEMS: [...] requiring medication, no history of angina, CHF, IA, cardiac surgery or stents. Denies rest pain, [...] or any previous visit (from the past 17028 hour(s)). Instructions Given to Patient: Instructions located in the after visit summary. Patient given verbal and written preop instructions and voices comprehension and compliance. SIGNATURE: Brie Kaur PA-C PATIENT NAME: CINTHIA Guerrero DATE: 11/17/2023 TIME: 3:00 PM PAGER/CONTACT #: [facility] 11-17-2023 History and physical note Images from [...] via [place]. Follows with outside pulm at [facility], Dr. Valery DAVIS in October per pt. Diminished breath sounds bilaterally throughout, no wheezing. SpO2 95% on 2L O2. 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 Pt reports she called traveling freight agent's office because she felt like her breathing [...] large neck Non-male patient STOP-Bang Score: 1 [id number] Score: Age: <65 Sex: female CHF history: No Hypertension history: No Stroke/TIA/thromboembolism history: No Vascular disease history: No Diabetes history: No [id number] Score: 1 ANESTHESIA FINDINGS: Intubation History: No [...] Initiated: Orders placed by surgeon/surgical service in [facility]. Orders Placed This Encounter Complete [...] 11/18/23 (per pt, surgery currently 12/16/23 in [facility]) at . REVIEW OF SYSTEMS: [...] requiring medication, no history of angina, CHF, IA, cardiac surgery or stents. Denies rest pain, [...] or any previous visit (from the past 01056 hour(s)). Instructions Given to Patient: Instructions located in the after visit summary. Patient given verbal and written preop instructions and voices comprehension and compliance. SIGNATURE: Brie Kaur PA-C PATIENT NAME: CINTHIA Guerrero DATE: 11/17/2023 TIME: 3:00 PM PAGER/CONTACT #: documented in this encounter [facility] 11-16-2023 Telephone encounter Note Spoke with Ms. Guerrero ... Will plan for a CT chest after she is recovered from her procedure and path is final. Thanks! Abdi [facility] 11-16-2023 Telephone encounter Note Pt called in [...] would appreciate a call ALEKS. Thank you [facility] 10-27-2023 Nurse Note Tobacco Use: 1.5 packs/day, for 35 years. Quit 04/13/2012. Types: Cigarettes Was smoking cessation packet given? N/A - Patient is a non-smoker or quit >1 year ago. Was a referral initiated?N/A Patient is a non-smoker [facility] 10-27-2023 Nurse Note Tobacco Use: 1.5 packs/day, for 35 years. Quit 04/13/2012. Types: Cigarettes Was smoking cessation packet given? N/A - Patient is a non-smoker or quit >1 year ago. Was a referral initiated?N/A Patient is a non-smoker documented in this encounter [facility] 09-29-2023 Telephone encounter Note Patient is scheduled and they have been calling her with appointment. [facility] 09-29-2023 Miscellaneous Notes Patient is scheduled and [...] MD, Cc: Anita Pressley LPN; Silvia Jha, LUICE; Rodney Rinaldi Hi Dr. Mcintyre - I appreciate the update and the context for the pathology results. Rashid/Ang/Tiff - please refer Ms. Guerrero to Dr. Craft for consideration of excisional biopsy. Thanks! Abdi Dailey please place orders, thank you! documented in this encounter [facility] 09-25-2023 Telephone encounter Note Email sent to cancer answer line for scheduling thanks [facility] 09-24-2023 Telephone encounter Note Tiff- Dr Israel signed ENT order for Dr Craft. Please schedule and let him know when this consult can be done. Thank you! Silvia Jha RN [facility] 09-23-[address] Israel- please sign pended ENT order so Rodney can contact Dr Craft for consult. Silvia Jha, RN [facility] 09-21-2023 Telephone encounter Note Order pended- please review before signing. Silvia Jha RN [facility] 09-21-2023 Telephone encounter Note Images from the [...] Abdi Dailey please place orders, thank you! [facility] 09-16-2023 Surgery Surgical operation note Summary: Left cervical lymph node biopsy BRIEF OPERATIVE / PROCEDURE NOTE LOG ID: [id number] SURGERY/PROCEDURE DATE: 09/16/2023 INCISION/PROCEDURE START TIME: 10:42 AM INCISION CLOSE/PROCEDURE END TIME: 11:02 AM SURGEON(S)/PROCEDURALIST(S) AND DEPUTY MANAGER(S): Surgeon(s) and Role: * Khushboo Mcintyre MD, [...] DATE: September 16, 2023 TIME: 11:06 AM [facility] Work Phone: 09-16-2023 Surgical operatio n note Summary: Left cervical lymph node biopsy BRIEF OPERATIVE / PROCEDURE NOTE LOG ID: [id number] SURGERY/PROCEDURE DATE: 09/16/2023 INCISION/PROCEDURE START TIME: 10:42 AM INCISION CLOSE/PROCEDURE END TIME: 11:02 AM SURGEON(S)/PROCEDURALIST(S) AND DEPUTY MANAGER(S): Surgeon(s) and Role: * Khushboo Mcintyre MD, [...] TIME: 11:06 AM documented in this encounter [facility] 09-16-2023 Instructions Formatting of th is note [...] Howell RN In Department: HOSP MAIN [id number] [facility] 09-16-2023 Miscellaneous Notes AMBULATORY PATIENT EDUCATION TOPIC: [...] HOSP MAIN [id number] documented in this encounter [facility] 09-14-2023 Telephone encounter Note Thanks! Abdi [facility] 09-14-2023 Miscellaneous Notes Thanks! Abdi Patient is [...] neck seen on PET CT at either [facility] or [facility]. Thanks! Abdi documented in this encounter [facility] 09-14-2023 Telephone encounter Note Patient is scheduled 09/15 for biopsy [facility] 09-14-2023 Nurse Note Pre- e instructions: Address: [address] Contacted patient and confirmed appt. for biopsy scheduled on 09/16/23, at [facility]. Diet: Procedure to be done with local anesthetic, you may eat, drink and take medications as prescribed the day of this procedure. Medications: IF ok with your Prescribing Provider: RADIOLOGY RECOMMENDS THESE MEDICATION RESTRICTIONS : None Labs: Lab work needs to be drawn by 09/15/23 at any [facility]. Arrival: Please bring your Photo ID and Insurance Card. A general consent may need to be signed. Arrival at 8:30am to desk QB-1 ([facility]) and check in for your procedure. Scout Sniper/Transportation: Scout Sniper not necessary Written instructions provided to patient via [employer] If you have any questions please call [phone] [facility] 09-14-2023 Nurse Note Pre- e instructions: Address: [address] Contacted patient and confirmed appt. for biopsy scheduled on 09/16/23, at [facility]. Diet: Procedure to be done with local anesthetic, you may eat, drink and take medications as prescribed the day of this procedure. Medications: IF ok with your Prescribing Provider: RADIOLOGY RECOMMENDS THESE MEDICATION RESTRICTIONS : None Labs: Lab work needs to be drawn by 09/15/23 at any [facility]. Arrival: Please bring your Photo ID and Insurance Card. A general consent may need to be signed. Arrival at 8:30am to desk QB-1 ([facility]) and check in for your procedure. Scout Sniper/Transportation: Scout Sniper not necessary Written instructions provided to patient via [employer] If you have any questions please call [phone] documented in this encounter [facility] 09-14-2023 Telephone encounter Note Spoke to pt and scheduled biopsy for 09/16/23. [facility] 09-14-2023 Miscellaneous Notes Spoke to pt and [...] this procedure: intermediate-high risk. Reference from [facility]: [email or web address] STAFF SIGNATURE: Osito Galicia MD DATE: September [...] 10:44am REQUESTING STAFF: Abdi Israel MD PHONE/PAGER: [phone] SPECIFICS OF THE REQUEST:Cervical lymph node bx SPECIAL REQUESTS: TISSUE SAMPLE, LABWORK: N/A IS THIS REQUEST PART OF A RESEARCH PROTOCOL: No MEDICAL DIAGNOSIS: Malignant neoplasm of unspecified part of unspecified bronchus or lung (HCC) [C34.90] TYPE AND DATE OF THE EXAM THAT IS THE BASIS OF THE REQUEST: PET 09/01/2023 IMAGING: [facility] Note to all persons requesting biopsies: All biopsy requests will be scheduled as quickly as possible, based on the clinical urgency, availability of appointment times, the need to hold anti-thrombolytic therapy (aspirin, blood thinners) and the patient s schedule, including the need for an available yard truck driver. If a percutaneous biopsy or drainage is not felt to be safe or an alternative method for establishing a diagnosis is possible, this will be discussed directly with the requesting physician. documented in this encounter [facility] 09-14-2023 Telephone encounter Note Hebeto Girl, just checking on this one thanks [facility] 09-09-2023 Telephone encounter Note RADIOLOGIST REQUEST / APPROVAL FORM STAFF RADIOLOGIST: Dr. Niko Gatica PROCEDURE TO BE DONE UNDER: US PROCEDURE REQUESTED: FNA Requested PROCEDURE: Approved TIME SLOT NEEDED: 1 Hour NOTES: None SPECIAL LABS/ PROCESSING: None Pre-procedure labs: CBC: ordered INR: not needed COVID: not needed SIR Bleeding risk category for this procedure: intermediate-high risk. Reference from [facility]: [email or web address] STAFF SIGNATURE: Osito Galicia MD DATE: September 09, 2023 TIME: 9:31 AM T [facility] Work Phone: 09-08-2023 Telephone encounter Note BX. [...] September 08, 2023 TIME: 11:34 AM T [facility] 09-08-2023 Telephone encounter Note Summary: Cervical lymph node bx RADIOLOGY CALL CENTER INTAKE DATE: 09/08/2023 TIME: 10:44am REQUESTING STAFF: Abdi Israel MD PHONE/PAGER: [phone] SPECIFICS OF THE REQUEST:Cervical lymph node bx SPECIAL REQUESTS: TISSUE SAMPLE, LABWORK: N/A IS THIS REQUEST PART OF A RESEARCH PROTOCOL: No MEDICAL DIAGNOSIS: Malignant neoplasm of unspecified part of unspecified bronchus or lung (HCC) [C34.90] TYPE AND DATE OF THE EXAM THAT IS THE BASIS OF THE REQUEST: PET 09/01/2023 IMAGING: [facility] Note to all persons requesting biopsies: All biopsy requests will be scheduled as quickly as possible, based on the clinical urgency, availability of appointment times, the need to hold anti-thrombolytic therapy (aspirin, blood thinners) and the patient s schedule, including the need for an available yard truck driver. If a percutaneous biopsy or drainage is not felt to be safe or an alternative method for establishing a diagnosis is possible, this will be discussed directly with the requesting physician. [facility] 09-08-2023 Telephone encounter Note Signed - thanks! Abdi [facility] 09-08-2023 Telephone encounter Note Yes please - Abdi [facility] 09-08-2023 Telephone encounter Note Images from the original note were not included. Abdi Israel MD Graves, Ariana, LPN Cc: Silvia Jha RN; Rodney Rinaldi Please set Ms. Guerrero up for an US guided biopsy of one of the lymph nodes in the neck seen on PET CT at either [facility] or [facility]. Thanks! Abdi [facility] 09-01-2023 Note HNO ID: [id number] Author: SAHARA BRICENO RT(R) Service: ? Author [...] [id number] PATIENT DISCHARGED TO: Ambulatory patient, left [place] department area. A Diagnostic radioactive procedure has taken place, with no further precautions necessary other than routine body substance precautions. More information regarding radiation safety can be found using this link: [email or web address] [email or web address]%20Nuclear%20Medicin [email or web address] SIGNATURE: Sahara Briceno RT(R) PATIENT NAME: CINTHIA Guerrero DATE: September 01, 2023 TIME: 1:23 PM PAGER/CONTACT #: [facility] 08-18-2023 Telephone encounter Note Seen patient checked her mychart yesterday for appointments. [facility] 08-18-2023 Miscellaneous Notes Seen patient checked her [...] us know she had a CT at [facility] ordered per Dr Kenyon yesterday. He called her today to let her know that there was something concerning and he wanted her to contact our office. CT report printed from [facility] and images requested. Dr Israel- please advise when you have had a chance to review. Thank you Silvia Jha RN documented in this encounter [facility] 08-17-2023 Telephone encounter Note Called patient and left message with date and time of Time, due to her insurance It has to be put out 2 weeks I told her to please call me back if she has any questions thank you. [facility] 08-17-2023 Telephone encounter Note Scan from July was CXR. Per LORENZO, no need to get images. PSS- I spoke to pt and she is expecting your call to arrange PET here. Thank you Silvia Jha RN [facility] 08-17-2023 Telephone encounter Note Definite changes in the left chest from previous available scan in April. Ordered PET to further characterize findings and please request CT Chest images from 07/2023. Thanks! Abdi [facility] 08-14-2023 Telephone encounter Note Pt called in to let us know she had a CT at [facility] ordered per Dr Kenyon yesterday. He called her today to let her know that there was something concerning and he wanted her to contact our office. CT report printed from [facility] and images requested. Dr Israel- please advise when you have had a chance to review. Thank you Silvia Jha RN [facility] 05-25-2023 Note HNO ID: [id number] Author: ABDI ISRAEL MD Service: ? Author Type: Physician Type: Progress Notes Filed: 06/09/2023 01:43 Note Text: Radiation Oncology - Follow Up Note PATIENT NAME: CINTHIA Guerrero PATIENT DIAGNOSIS/PATIENT IDENTIFICATION: Ms. Guerrero is a 62-year-old woman with severe COPD, who is diagnosed with Stage IA3, [id number], non-small cell lung cancer arising from a [...] remains on supplemental oxygen at 2 L/min lnaahe-wxp-hlslo and continues on Pulmicort and albuterol rescue inhaler. He denies cough or hemoptysis or chest pain or difficulty swallowing today. She does note fatigue with stable appetite and hydration. 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 She otherwise denies any recent fevers, chills, [...] COPD, who is diagnosed with Stage IA3, [id number], non-small cell lung cancer arising from a [...] in the process of transitioning care between traveling freight agent. She had repeat CT imaging of the [...] which included preparing to see the patient, ynio-mh-rxdq patient care, and counseling and educating the patient/family/caregiver. This document has been created with the use of voice recognition technology. It may contain inaccuracies, misspellings, inaccurate syntax or inappropriate word context that are a result of the inadequacies/shortcomings of said technology/software. [facility] 05-20-2023 Miscellaneous Notes Patient is called and scheduled for next week Pt called in and was admitted to [facility] last week. They did CT Chest. She has been waiting on insurance approval for a chest CT and will not need one now. She would like follow up arranged. Reports printed from [facility] and images requested. PSS- please call pt and arrange follow up with Dr Israel for next week. Thank you Silvia Jha RN documented in this encounter [facility] 11-27-2022 History of Presen t illness Narrative Images from the original note were not included. Radiation Oncology - Follow Up Note PATIENT NAME: CINTHIA Guerrero PATIENT DIAGNOSIS/PATIENT IDENTIFICATION: Ms. Guerrero is a 62-year-old woman with severe COPD, who is diagnosed with Stage IA3, [id number], non-small cell lung cancer arising from a [...] been following up with pulmonary therapy at [facility] and with her traveling freight agent Dr. Driver and using her nebulizers. She [...] COPD, who is diagnosed with Stage IA3, [id number], non-small cell lung cancer arising from a [...] the chest. She will follow with her traveling freight agent Dr. Driver to optimize her respiratory function [...] which included preparing to see the patient, aaeg-zw-exjz patient care, and counseling and educating the patient/family/caregiver. This document has been created with the use of voice recognition technology. It may contain inaccuracies, misspellings, inaccurate syntax or inappropriate word context that are a result of the inadequacies/shortcomings of said technology/software. documented in this encounter [facility] 11-18-2022 Miscellaneous Notes FYI--Dr. Driver's progress note is available in Care Everywhere. Dr. Kenyon's office note to be faxed over per his office. Anita Pressley LPN Pt notified, CT canceled. Rashid working on records from Dr Kenyon and Dr Driver. Images/report being pushed from [facility]. Rosa Victoria, RN Yes, please cancel CT tomorrow. In addition to the images, please request any office notes from Dr. Kenyon as well as her traveling freight agent. Thanks! Adbi Pt called for CT 11/19/22. She reports CT completed 09/24/22 at [facility]. CT chest verified and will send images/report. LROENZO: Would you like to cancel CT? Please advise Rosa Victoria RN documented in this encounter [facility] 06-26-2022 Evaluation note Encounter Date Diagnosis [...] History of lung cancer (ICD-10 - Z85.118) [employer] Other 02-20-2023 History of Present illness Narrative* Abdi Israel MD - 06/02/2022 11:53 PM EST Radiation Oncology - Follow Up Note PATIENT NAME: CINTHIA Guerrero PATIENT Signed by: Abdi Israel MD I spent a total of 20 minutes on the date of the service which included preparing to see the patient, qasc-py-zwbb patient care, and counseling and educating the patient/family/caregiver. This document has been created with the use of voice recognition technology. It may contain inaccuracies, misspellings, inaccurate syntax or inappropriate word context that are a result of the inadequacies/shortcomings of said technology/software. documented in [facility] Evaluation note* Encounter Date Diagnosis Assessment [...] History of lung cancer (ICD-10 - Z85.118) [employer] Other 02-01-2023 Miscellaneous Notes* Telephone Encounter - Abdi Israel MD - 05/14/2022 10:40 PM EST Thanks! Abdi * Telephone Encounter - Kendal Sears - 05/14/2022 1:59 PM EST Records faxed to Dr. Conde. Requested images be pushed to [facility]. * Telephone Encounter - Telma Pak - [...] yesterday showing fungal/aspergillus infection. Spoke with her traveling freight agent, Dr. Cross, today and agreed to refer [...] Thanks Anita Pressley LPN [facility] History of Present illness Narrative* Interface Note - 05/09/2022 8:00 PM EST Epic Scheduled Downtime: 05/10/2022 1:00:00 AM to 05/10/2022 3:56:00 AM documented in this encounterWhite Hospital01-27-[facility]23 Nurse Note* Luz Maria Blanca RN [...] Luz Maria Blanca RN documented in this encounterWhite [facility]-16-[facility] History of Present illness Narrative* Vitor Kaur MD - 04/28/2022 3:03 PM EST VIRTUAL VISIT PROGRESS NOTE This is a virtual visit using Daojia video visit. It required patient-provider interaction for [...] eating well. COPD managed locally by a traveling freight agent. HISTORY REVIEWED (electronic chart updated): PAST MEDICAL [...] Emphysema. Controlled and stable; managed by local traveling freight agent. I spent a total of 60 minutes on the date of the service which included preparing to see the patient, zljk-bn-bxtn patient care, completing clinical documentation, obtaining and/or reviewing separately obtained history, performing a medically appropriate examination, counseling and educating the pat ient/family/caregiver, ordering medications, tests, or procedures, communicating with other HCPs (not separately reported), independently interpreting results (not separately reported), communicatingresults to the patient/family/caregiver, and care coordination (not separately reported) Vitor Kaur MD April 28, 2022 documented in this encounterWhite Hospital01-11-2023 Miscellaneous Notes* Telephone Encounter - Telma Pak - 04/23/2022 9:58 AM EST Patient has been scheduled for both & confirmed appt day & time. Telma Pak * Telephone Encounter - Telma Pak - 04/23/2022 9:10 AM EST Called patient to schedule her for EKG & labs per e-mail. No answer, LMOV requesting a returnedphone call. Telma Pak documented in this encounterWhite Hospital01-10-2023 History of Present illness Narrative* Vitor Kaur [...] try to get labs/EKG/COVID swab done at [facility] Cancer Does the pt need cardiac clearance?: No Is she on anticoagulants/anti-plt therapy?: No Nursing Considerations: (ie: skilled nursing, TB, respiratory isolation, clinical trial, Specific protocol etc.) none Additional notes to the pump house 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 Please try to access the PET avid area if possible. Consultation request/referral by: Abdi Israel MD ([facility]) Reviewed by: PHANI Kaur MD April 22, 2022 3:49 PM Addendum: CBC with diff: WBC 6.81 03/02/2018 RBC 4.94 03/02/2018 Hemoglobin 14.7 03/02/2018 Hematocrit 44.5 03/02/2018 MCV 90.1 03/02/2018 MCH 29.8 03/02/2018 MCHC 33.0 03/02/2018 RDW-CV 12.4 03/02/2018 Platelet Count 234 03/02/2018 MPV 10.3 03/02/2018 Neut% 64.3 03/02/2018 Lymph% 25.3 03/02/2018 Pecos% 9.1 03/02/2018 Eosin% 0.7 03/02/2018 Baso% 0.6 03/02/2018 Abs Neut (ANC) 4.36 03/02/2018 Abs Pecos 0.62 03/02/2018 Abs Eosin 0.05 03/02/2018 Abs [...] - 0.96 mg/dL Final documented in this encounterWhite Hospital01-10-2023 Miscellaneous Notes* Telephone Encounter - Anita [...] time. Anita Pressley LPN documented in this encounterWhite Hospital12-02-2022 History of Present illness Narrative* Abdi Israel MD - 03/14/2022 11:44 PM EST Radiation Oncology - Follow Up Note PATIENT NAME: Omaira Guerrero PATIENT Signed by: Abdi Israel MD I spent a total of 20 minutes on the date of the service which included preparing to see the patient, ibbj-br-ghqx patient care, and counseling and educating the patient/family/caregiver. This document has been created with the use of voice recognition technology. It may contain inaccuracies, misspellings, inaccurate syntax or inappropriate word context that are a result of the inadequacies/shortcomings of said technology/software. documented in this encounterWhite Hospital11-11-2022 Miscellaneous Notes* Telephone Encounter - Telma Pka - 02/21/2022 11:41 AM EST Patient has [...] then follow-up to review documented in this encounterWhite Hospital11-10-2022 Miscellaneous Notes* Telephone Encounter - Anita Pressley LPN - 02/20/2022 1:[address] Israel please sign pended PET scan order that you requested for Judy. Hollis: Please schedule PET as indicated below. Thanks Anita Pressley LPN Spoke with Dr. Cross and reviewed recent scan ... please set up Omaiar Lang for PET/CT as soon as possible then follow-up to review documented in this encounterWhite Hospital02-24-2022 History of Present illness Narrative* Abdi Israel MD - 06/06/2021 4:50 PM EST Radiation Oncology - Follow Up Note PATIENT NAME: Omaira Guerrero PATIENT DIAGNOSIS/PATIENT IDENTIFICATION: Ms. Guerrero is a 60-year-old woman with severe COPD, who is diagnosed with Stage IA3, [id number], non-small cell lung cancer arising from a [...] COPD, who is diagnosed with Stage IA3, [id number], non-small cell lung cancer arising from a [...] which included preparing to see the patient, ocaq-jo-xucs patient care and counseling and educating the patient/family/caregiver. This document has been created with the use of voice recognition technology. It may contain inaccuracies, misspellings, inaccurate syntax or inappropriate word context that are a result of the inadequacies/shortcomings of said technology/software. documented in this encounterWhite Hospital10-01-2021 NoteChief Complaint consultation for nevus HPI Staff 60 year old female presents on consultation from Dr. Kenyon for right lower leg fresh colored skin lesion. Present for 4 months. Scabbed area from recent trama. Denies itching. Also notes dark pigmentedlesion to right shinto. Present 4 months. Does not bleed or itch. History of Present Illness 60 yo female with h/o COPD, previous lung cancer, on oxygen; referred for changing skin lesions; right lower extremity lesion enlarging; recently scratched so scabbed over; no bleeding; right shinto lesion with small scab, no pain or [...] nodes, cyanosis, clubbing. Skin: no rashes right shinto with 4 mm raised, erythematous lesion with [...] infarction: Brother. Cardiac arrest: Mother, Father and Sister.[facility]edoComment on above:Result Comment: Electronically Signed By: JIM DAVENPORT, Jose Domínguez\Date and Time Signed: 01/11/21 11:20 [id number] History general Narrative - Reported* Type Description Date Medical History COPD Surgical History appendectomy Surgical History csection Hospitalization History PNA at [facility] 05/2011 [employer] Other Evaluation note* Diagnosis Non-small cell cancer of left lung (HCC)- Primary Neoplasm of lung Neoplasm of unspecified nature of respiratory system [facility] Diagnosis Neoplasm of lung- Primary Neoplasm of unspecified nature of respiratory system [facility] this [facility]* Diagnosis Non-small cell cancer of left lung (HCC)- Primary [facility]* Diagnosis Lung mass- Primary Swelling, mass, or lump in chest [facility]* Diagnosis Preoperative examination- Primary Preoperative examination, unspecified Bronchiolar disease Other diseases of trachea and bronchus [facility]* Diagnosis Non-small cell cancer of left lung (HCC)- Primary Lung mass Swelling, mass, or lump in chest Centrilobular emphysema (HCC) Other emphysema Bronchiolar disease Other diseases of trachea and bronchus [facility] Bronchiolar disease Other diseases of trachea and bronchus Lung nodule Solitary pulmonary nodule documented in this encounter [facility]* Diagnosis Aspergillus pneumonia (HCC)- Primary Aspergillosis Non-small cell cancer of left lung (HCC) documented in this encounter [facility] note* Diagnosis Non-small cell cancer of left lung (HCC)- Primary documented in this encounter [facility] noteNo [facility] Other evaluation note* Diagnosis Neoplasm of lung- Primary Neoplasm of unspecified nature of respiratory system documented in this encounter [facility] note* Diagnosis Onset Date Resolution Status Chronic respiratory failure with hypoxia acute COPD exacerbation acute Exertional shortness of breath acute Pneumonia acute Pulmonary cachexia due to COPD acute Tachycardia acute [facility] Work Phone: evaluation note* Diagnosis Onset Date Resolution Status Acute hypoxic respiratory failure acute Cachexia acute Chronic respiratory failure with hypoxia acute COPD exacerbation acute Exertional shortness of breath acute Pneumonia acute Pulmonary cachexia due to COPD acute Tachycardia acute [facility] Work Phone: evaluwodfs note* Diagnosis Malignant neoplasm of unspecified part of unspecified bronchus or lung (HCC)- Primary [facility] Diagnosis Neoplasm- Primary Neoplasm of unspecified nature, site unspecified documented in this encounter [facility] note* Diagnosis Onset Date Resolution Status Chronic respiratory failure with hypoxia acute COPD (chronic obstructive pulmonary disease) acute [facility] Work Phone: evaluation note* Diagnosis Non-small cell cancer of left lung (HCC)- Primary 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 Follows with outside pulm at [facility], Dr. Valery DAVIS in October per pt. Diminished breath sounds bilaterally throughout, no wheezing. SpO2 95% on 2L O2. 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 Ptreports she called traveling freight agent's office because she felt like her breathing [...] treated with SBRT. [facility] Diagnosis Onset Date Resolution Status Chronic respiratory failure with hypoxia acute COPD (chronic obstructive pulmonary disease) acute Chronic respiratory failure with hypoxia acute COPD (chronic obstructive pulmonary disease) acute Sleep apnea, obstructive acu te [facility] Work Phone: Evaluation note* Diagnosis Lymphadenopathy- [...] hazards to health documented [facility] this encounter [facility]* Diagnosis Malignant neoplasm of unspecified part [...] hazards to health documented in this encounter [facility] Discharge instructions Additional Instructions I may not have addressed or treated all of your medical illnesses or the abnormal blood work or imaging studies during this hospitalization. Please ask your primary care provider to obtain [facility] records entirely to follow up on all of the abnormal physical, laboratory, and imaging findings that I have not addressed. Please return back to the emergency room or seek medical attention if your symptoms worsen or return. You asked me to give you the name of the lung specialist who is affiliated with [facility]. Please follow-up with Dr. Rasmussen regarding COPD, lung nodule and pulmonary care. Until you get your first appointment with Dr. Rasmussen, continue to follow-up with Dr. Driver guarding your lung nodule and COPD You would need to have follow-up on lung nodule that is seen before Discharging you from [facility] does not mean that your [...] Thank you. Continue home oxygen per chronic orders.[facility] Work Phone: [facility] for referral (narrative)* Diagnostic Procedure Only (Routine) - Additional Clinical Info Needed Specialty Diagnoses / Procedures Referred By Contac t Referred To Contact MOLECULAR & FUNCTIONAL IMAGING Diagnoses Neoplasm of lung Procedures NM PET/CT SKULL-THIGH INITIAL PET IMAGING CT ATTENUATION SKULL BASE MID-THIGH Abdi Israel MD [address] [place] [address] [place] [address] Molecular & Functional Imaging [address] [place] [address] Referral ID Status Reason Start Date Expiration Date Visits Requested Visits Authorized [id number] Additional Clinical Info Needed Auto-Generat ed Referral 2 03/22/2023 1 1 [facility] for referral (narrative)* Diagnostic Procedure Only (Routine) - Additional Clinical Info Needed Specialty Diagnoses / Procedures Referred By Contac t Referred To Contact MOLECULAR & FUNCTIONAL IMAGING Diagnoses Malignant neoplasm of unspecified part of unspecified bronchus or lung (HCC) Procedures NM PET/CT SKULL-THIGH SUBSEQUENT PET IMAGING CT ATTENUATION SKULL BASE MID-THIGH Abdi Isreal MD [address] [place] [address] [place] [address] [facility] & Functional Imaging [address] [place] [address] Referral ID Status Reason Start Date Expiration Date Visits Requested Visits Authorized [id number] Additional Clinical Info Needed Auto-Generat ed Referral 08/17/2023 09/15/2024 1 1 [facility] for referral (narrative)* Outpatient Procedure (Routine) - Closed Specialty Diagnoses / Procedures Referred By Contac t Referred To Contact 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) Lymphadenopathy Procedures REFER TO [facility] PREOPERATIVE OPTIMIZATION OFFICE/OUTPATIENT [facility] 60 MINUTES Teo Craft MD [address] [place] [address] Referral ID Status Reason Start Date Expiration Date Visits Requested Visits Authorized [id number] Authorized PCP Requested Referral 11/05/2023 10/26/2024 1 1 [facility] Summary Purpose Family History No Family History Records Found Relationship Condition Age at Onset Recorded Date/T alvarez brother Coronary artery disease Unknown Heart disease Unknown father Coronary artery disease Unknown sister Coronary artery disease Unknown Advance Directives No Advanced Directives Records FoundDocuments on File Type Date Recorded 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 Advance Directive(s) Advance Directive(s) 03/19/2018 8:37 AM Advance Directive Response Recorded Date/ Time Advance Directives No February 11:15am Advance Directive Response Recorded Date/ Time Advance Directives No February 12:15pm Advance Directive Response Recorded Date/ Time Advance Directives No September 28 2:19pm Reason for Referral Specialty Diagnoses / Procedures [facility] To Contact CT IM[facility]ING Diagnoses Non-small cell cancer of left lung (HCC) Neoplasm of lung Procedures CT CHEST W IVCON DIAGNOSTIC COMPUTED TOMOGRAPHY THORAX W/CONTRAST Abdi Israel MD [address] [facility] [address] Ct Imaging Referral ID Status Reason Start Date Expiration Date Visits Requested Visits Authorized [id number] Pending Review Auto-Generat ed Referral 06/06/2022 07/06/2022 1 1 Specialty Diagnoses / Procedures Referred By Contac t Referred To Contact CT IMAGING Diagnoses Lung mass Procedures CT CHEST WO IVCON DIAGNOSTIC COMPUTED TOMOGRAPHY THORAX W/O CNTRST Vitor Kaur MD [address] [place] [address] Ct Imaging Referral ID Status Reason Start Date Expiration Date Visits Requested Visits Authorized [id number] Pending Review Auto-Generat ed Referral 04/22/2022 05/22/2023 1 1 Specialty Diagnoses / Procedures Referred By Contac t Referred To Contact [facility] Diagnoses Lung mass Procedures ECG COMPLETE ECG ROUTINE ECG W/LEAST 12 LDS W/I&R Vitor Kaur MD [address] [place] [address] [facility] [address] [place] [address] Referral ID Status Reason Start Date Expiration Date Visits Requested Visits Authorized [id number] Pending Review Auto-Generat ed Referral 04/22/2022 04/22/2023 1 1 Specialty Diagnoses / Procedures Referred By Contac t Referred To Contact Infectious Diseases Diagnoses Aspergillus pneumonia (HCC) Non-small cell cancer of left lung (HCC) Procedures CONSULT TO INFECTIOUS DISEASES Abdi Israel MD [address] [place] [address] [place] [address] Referral ID Status Reason Start Date Expiration Date Visits Requested Visits Authorized [id number] Ref Not Required PCP Requested Referral 05/14/2022 05/14/2023 1 1 Specialty Diagnoses / Procedures Referred By Contac t Referred To Contact CT IMAGING Diagnoses Neoplasm of lung Procedures CT CHEST W IVCON DIAGNOSTIC COMPUTED TOMOGRAPHY THORAX W/CONTRAST Abdi Israel MD [address] [place] [address] Ct Imaging [facility] Referral ID Status Reason Start Date Expiration Date Visits Requested Visits Authorized [id number] Pending Review Auto-Generat ed Referral 05/13/2023 12/27/2023 1 1 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) Procedures CONSULT TO ENT OFFICE/OUTPATIENT [facility] 60 MINUTES Abdi Israel MD [facility] [address] [place] [id number] Referral ID Status Reason Start Date Expiration Date Visits Requested Visits Authorized [id number] Authorized PCP Requested Referral 09/24/2023 09/22/2024 1 1 Specialty Diagnoses / Procedures Referred By Contac t Referred To Contact CT IMAGING Diagnoses Malignant neoplasm of unspecified part of unspecified bronchus or lung (HCC) Procedures CT CHEST W IVCON DIAGNOSTIC COMPUTED TOMOGRAPHY THORAX W/CONTRAST Abdi Israel MD [facility] [address] [id number] Ct Imaging [place] [address] Referral ID Status Reason Start Date Expiration Date Visits Requested Visits Authorized [id number] Authorized Auto-Generat ed Referral 12/02/2023 01/31/2024 1 1 Specialty Diagnoses / Procedures Referred By Contac t Referred To Contact MOLECULAR & FUNCTIONAL IMAGING Diagnoses Malignant neoplasm of unspecified part of unspecified bronchus or lung (HCC) Procedures NM PET/CT SKULL-THIGH SUBSEQUENT PET IMAGING CT ATTENUATION SKULL BASE MID-THIGH Abdi Israel MD [address] [place] [address] [place] [address] Molecular & Functional Imaging [address] [place] [address] Referral ID Status Reason Start Date Expiration Date V isits Requested Visits Authorized [id number] Denied Auto-Generate d Referral 12/02/2023 01/31/2024 1 [...] section and content) DATE CREATED AUTHOR 10/06/2017 [facility] DATE CREATED AUTHOR AUTHOR'S ORGANIZ ATION 10/09/2017 [facility] DATE CREATED AUTHOR AUTHOR'S ORGANIZ ATION 03/22/2018 [facility] DATE CREATED AUTHOR AUTHOR'S ORGANIZ ATION 03/26/2021 [facility] DATE CREATED AUTHOR AUTHOR'S ORGANIZ ATION 09/19/[address] [facility] DATE CREATED AUTHOR AUTHOR'S ORGANIZ ATION 05/31/2023 [facility] DATE CREATED AUTHOR AUTHOR'S ORGANIZ ATION 08/18/2023 [facility] DATE CREATED AUTHOR AUTHOR'S ORGANIZ ATION 09/14/2023 [facility] DATE CREATED AUTHOR AUTHOR'S ORGANIZ ATION 11/19/2023 [facility] DATE CREATED AUTHOR AUTHOR'S ORGANIZ ATION 12/11/2023 [facility] Source Comments (unrecognize d section and content) In the event this informatio n is protected by the Federal Confidentiality of Alcohol and Drug Abuse Patient Records regulations: The Federal rules restrict any use of the information to criminally investigate or prosecute any alcohol or drug abuse patient.[facility] the event this information is protected by the Federal Confidentiality of Alcohol and Drug Abuse Patient Records regulations: The Federal rules restrict any use of the information to criminally investigate or prosecute any alcohol or drug abuse patient.[facility] the event this information is protected by the Federal Confidentiality of Alcohol and Drug Abuse Patient Records regulations: The Federal rules restrict any use of the information to criminally investigate or prosecute any alcohol or drug abuse patient.[facility] Hospital[facility] the event this information is protected by the Federal Confidentiality of Alcohol and Drug Abuse Patient Records regulations: The Federal rules restrict any use of the information to criminally investigate or prosecute any alcohol or drug abuse patient.[facility] the event this information is protected by the Federal Confidentiality of Alcohol and Drug Abuse Patient Records regulations: The Federal rules restrict any use of the information to criminally investigate or prosecute any alcohol or drug abuse patient.[facility] the event this information is protected by the Federal Confidentiality of Alcohol and Drug Abuse Patient Records regulations: The Federal rules restrict any use of the information to criminally investigate or prosecute any alcohol or drug abuse patient.[facility] HospitalIn the event this information is protected by the Federal Confidentiality of Alcohol and Drug Abuse Patient Records regulations: The Federal rules restrict any use of the information to criminally investigate or prosecute any alcohol or drug abuse patient.[facility] Hospital[facility] the event this information is protected by the Federal Confidentiality of Alcohol and Drug Abuse Patient Records regulations: The Federal rules restrict any use of the information to criminally investigate or prosecute any alcohol or drug abuse patient.[facility] Hospital[facility] the event this information is protected by the Federal Confidentiality of Alcohol and Drug Abuse Patient Records regulations: The Federal rules restrict any use of the information to criminally investigate or prosecute any alcohol or drug abuse patient.[facility] Hospital[facility] the event this information is protected by the Federal Confidentiality of Alcohol and Drug Abuse Patient Records regulations: The Federal rules restrict any use of the information to criminally investigate or prosecute any alcohol or drug abuse patient.[facility] Hospital[facility] the event this information is protected by the Federal Confidentiality of Alcohol and Drug Abuse Patient Records regulations: The Federal rules restrict any use of the information to criminally investigate or prosecute any alcohol or drug abuse patient.[facility] Hospital[facility] the event this information is protected by the Federal Confidentiality of Alcohol and Drug Abuse Patient Records regulations: The Federal rules restrict any use of the information to criminally investigate or prosecute any alcohol or drug abuse patient.[facility] Hospital[facility] the event this information is protected by the Federal Confidentiality of Alcohol and Drug Abuse Patient Records regulations: The Federal rules restrict any use of the information to criminally investigate or prosecute any alcohol or drug abuse patient.[facility] HospitalIn the event this information is protected by the Federal Confidentiality of Alcohol and Drug Abuse Patient Records regulations: The Federal rules restrict any use of the information to criminally investigate or prosecute any alcohol or drug abuse patient.[facility] Hospital[facility] the event this information is protected by the Federal Confidentiality of Alcohol and Drug Abuse Patient Records regulations: The Federal rules restrict any use of the information to criminally investigate or prosecute any alcohol or drug abuse patient.[facility] HospitalIn the event this information is protected by the Federal Confidentiality of Alcohol and Drug Abuse Patient Records regulations: The Federal rules restrict any use of the information to criminally investigate or prosecute any alcohol or drug abuse patient.[facility] HospitalIn the event this information is protected by the Federal Confidentiality of Alcohol and Drug Abuse Patient Records regulations: The Federal rules restrict any use of the information to criminally investigate or prosecute any alcohol or drug abuse patient.[facility] HospitalIn the event this information is protected by the Federal Confidentiality of Alcohol and Drug Abuse Patient Records regulations: The Federal rules restrict any use of the information to criminally investigate or prosecute any alcohol or drug abuse patient.[facility] HospitalIn the event this information is protected by the Federal Confidentiality of Alcohol and Drug Abuse Patient Records regulations: The Federal rules restrict any use of the information to criminally investigate or prosecute any alcohol or drug abuse patient.[facility] HospitalIn the event this information is protected by the Federal Confidentiality of Alcohol and Drug Abuse Patient Records regulations: The Federal rules restrict any use of the information to criminally investigate or prosecute any alcohol or drug abuse patient.[facility] HospitalIn the event this information is protected by the Federal Confidentiality of Alcohol and Drug Abuse Patient Records regulations: The Federal rules restrict any use of the information to criminally investigate or prosecute any alcohol or drug abuse patient.[facility] HospitalIn the event this information is protected by the Federal Confidentiality of Alcohol and Drug Abuse Patient Records regulations: The Federal rules restrict any use of the information to criminally investigate or prosecute any alcohol or drug abuse patient.[facility] HospitalIn the event this information is protected by the Federal Confidentiality of Alcohol and Drug Abuse Patient Records regulations: The Federal rules restrict any use of the information to criminally investigate or prosecute any alcohol or drug abuse patient.[facility] HospitalIn the event this information is protected by the Federal Confidentiality of Alcohol and Drug Abuse Patient Records regulations: The Federal rules restrict any use of the information to criminally investigate or prosecute any alcohol or drug abuse patient.[facility] HospitalIn the event this information is protected by the Federal Confidentiality of Alcohol and Drug Abuse Patient Records regulations: The Federal rules restrict any use of the information to criminally investigate or prosecute any alcohol or drug abuse patient.[facility] HospitalIn the event this information is protected by the Federal Confidentiality of Alcohol and Drug Abuse Patient Records regulations: The Federal rules restrict any use of the information to criminally investigate or prosecute any alcohol or drug abuse patient.[facility] Reason for Visit (unrecogniz ed section and content) Reason Comments Lung Cancer Reason Comments Orders Reason Comments Orders Reason Comments Lung Cancer Reason Comments Appointment PreOp Bronch Reason Comments Patient Update Appointment Reason Comments Lung Cancer Lung Mass Reason Comments Appointment Specialty Diagnoses / Procedures Referred By Dwayne t Referred To Contact ADMITTING Diagnoses Bronchiolar disease Procedures [facility] INCL FLUOR GDNCE DX W/CELL WASHG SPX BRONCHOSCOPY [facility] [address] Referral ID Status Reason Start Date Expiration Date Visits Re quested Visits Authorized [id number] 1 1 Reason Comments Appointment Reason Comments [...] [facility] [address] [place] [address] Referral ID Status Reason Start Date Expiration Date Visits Re quested Visits Authorized [id number] 1 1 Reason Comments Appointment Confirmation Reason Comments Anesthesia Consult Reason Comments Patient Update Reason Comments New Patient Would like to discus s lymph node removal. 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) Procedures CONSULT TO ENT OFFICE/OUTPATIENT NEW HIGH MDM 60 MINUTES Abdi Israel MD [address] [place] [address] [place] [address] Referral ID Status Reason Start Date Expiration Date V isits Requested Visits Authorized [id number] Closed PCP Requested Referral 09/24/2023 09/22/2024 1 [...] September 29, 2023 End: September 29, 2023 Licensed Prosthetist/Orthotist Relationship Specialty Start Date End Date Adithya Kenyon MD [address] [id number] PCP - General Family Practice 02/25/18 Licensed Prosthetist/Orthotist Relationship Specialty Start Date End Date Adithya Kenyon MD [address] [id number] PCP - General Family Medicine 02/25/18 Licensed Prosthetist/Orthotist Relationship Specialty Start Date End Date Adithya Kenyon MD [address] [id number] PCP - General Family Medicine 02/25/18 Licensed Prosthetist/Orthotist Relationship Specialty Start Date End Date Adithya Kenyon MD [address] [id number] PCP - General Family Medicine 02/25/18 Licensed Prosthetist/Orthotist Relationship Specialty Start Date End Date Adithya Kenyon MD [address] [place] [place] [address] PCP - General Family Medicine 02/25/18 Licensed Prosthetist/Orthotist Relationship Specialty Start Date End Date Adithya Kenyon MD [address] [place] [address] PCP - General Family Medicine 02/25/18 Licensed Prosthetist/Orthotist Relationship Specialty Start Date End Date Adithya Kenyon MD [address] [place] [place] [address] PCP - General Family Medicine 02/25/18 Licensed Prosthetist/Orthotist Relationship Specialty Start Date End Date Adithya Kenyon MD [address] [place] [address] PCP - General Family Medicine 02/25/18 Licensed Prosthetist/Orthotist Relationship Specialty Start Date End Date Adithya Kenyon MD [address] [place] [place] [address] PCP - General Family Medicine 02/25/18 Licensed Prosthetist/Orthotist Relationship Specialty Start Date End Date Adithya Kenyon MD PCP - General Family Medicine 02/25/18 Licensed Prosthetist/Orthotist Relationship Specialty Start Date End Date Adithya [...] May 14, 2023 End: May 17, 2023 Licensed Prosthetist/Orthotist Relationship Specialty Start Date End Date Adithya Kenyon MD PCP - General Family Medicine 02/25/18 Licensed Prosthetist/Orthotist Relationship Specialty Start Date End Date Adithya Kenyon MD PCP - General Family Medicine 02/25/18 Licensed Prosthetist/Orthotist Relationship Specialty Start Date End Date Adithya Kenyon MD PCP - General Family Medicine 02/25/18 Licensed Prosthetist/Orthotist Relationship Specialty Start Date End Date Adithya Kenyon MD PCP - General Family Medicine 02/25/18 Licensed Prosthetist/Orthotist Relationship Specialty Start Date End Date Adithya Kenyon MD PCP - General Family Medicine 02/25/18 Licensed Prosthetist/Orthotist Relationship Specialty Start Date End Date Adithya Kenyon MD PCP - General Family Medicine 02/25/18 Licensed Prosthetist/Orthotist Relationship Specialty Start Date End Date Adithya Kenyon MD PCP - General Family Medicine 02/25/18 Team Status: Inactive Member Role Status Dates Adithya Kenyon MD Primary Care Provider Active Start: December 03, 2023 End: December 03, 2023 Denver Rasmussen MD Attending Provider Active Start: December 03, 2023 End: December 03, 2023 Licensed Prosthetist/Orthotist Relationship Specialty Start Date End Date Adithya Kenyon MD PCP - General Family Medicine 02/25/18 Licensed Prosthetist/Orthotist Relationship Specialty Start Date End Date Adithya [...] BE BASED ON THE PRIMARY CLINICAL RECORDS. [employer] provides no warranty or guarantee of the accuracy or completeness of information in this document.
--- NOTE | 2023-12-14 10:27 | P.PN_ITS ---
Progress Note: Subjective Subjective Interval history: Breathing only slightly better today. Cough persisting. Productive of sputum. Exam Constitutional Vital Signs, click to edit/add: Last Vital Signs Temp 97.6 F 12/14/23 08:05 Pulse 131 H 12/14/23 09:53 Resp 22 H 12/14/23 08:05 BP 116/71 12/14/23 08:05 Pulse Ox 91 L 12/14/23 08:05 O2 Del Method Nasal Cannula 12/14/23 08:05 O2 Flow Rate 2 12/14/23 08:05 Documenting provider has reviewed patient's vital signs: yes Common normals: apparent distress (moderate resp distress- some conversational dyspnea -maybe slightly better ) Chest Common normals: inspection of chest normal Respiratory Common normals: no retractions; abnormal respiratory effort Auscultation: rhonchi (Diffuse rhonchi-louder today with slightly better air exchange), wheezes, diminished lung sounds and egophony (Left upper lobe) Cardio Common normals: regular rhythm; irregular rate Rate: tachycardic GI Common normals: Normal to inspection, nondistended, normoactive bowel sounds present Neuro Common normals: oriented x3, CN's II-XII intact bilaterally and moves all extremities Progress Note: Objective Labs Labs: Short CBC 12/14/23 Range/Units 06:10 WBC 13.9 H (4.0-11.0) 10^3/uL Hgb 12.2 (12.0-16.0) g/dL Hct 39.2 (36.0-48.0) % Plt Count 229 (150-450) 10^3/uL BMP 12/14/23 06:10 Sodium 143 Potassium 3.7 Chloride 102 Carbon Dioxide 37.6 H BUN 5.0 L Creatinine 0.38 L Glucose 134 H Calcium 9.6 Progress Note: A&P Assessment and Plan (1) COPD exacerbation: (2) Tachycardia: (3) Failure of outpatient treatment: Plan Admission findings: Sinus tachycardia, respiratory distress secondary to left upper lobe pneumonia with failed outpatient treatment of acute exacerbation of COPD Acute exacerbation of COPD secondary to left upper lobe pneumonia-awaiting culture results, continue with current treatment plan, patient is slightly better but not significant, cough persisting throughout the evaluation dyspnea persisting with ambulation Sinus tachycardia-likely related to her acute exacerbation of her COPD will monitor closely. Admission status: Patient with failed outpatient treatment over the last week for acute exacerbation of COPD with oral antibiotics, higher dose of her baseline steroid and increasing her aerosol treatments every 4 hours. Despite this her respiratory distress is increased and she has had increasing sputum production. Medically necessary treatment will span 2 midnights. Inpatient status ?
[2023-12-14] MEDS: BUDESONIDE 0.5 MG/2 ML AMPULE NEB IH ×2 (11:12→23:24)
[2023-12-14] MEDS: ENSURE HP 237 ML LIQUID PO ×2 (11:31→21:20)
[2023-12-14] MEDS: MONTELUKAST SODIUM 10 MG TABLET PO (21:20)
[2023-12-15] VITALS (14 sets, daily range): BP systolic 122–145; BP diastolic 67–76; PULSE 113–139; TEMP 36.3–36.6; O2SAT 90–95
[2023-12-15] MEDS: IPRATROPIUM/ALBUTEROL SULFATE 3 ML AMPUL.NEB IH ×6 (03:47→23:34)
[2023-12-15] MEDS: METHYLPREDNISOLONE SOD SUCC PF 125 MG/2 ML VIAL IVP (04:06)
[2023-12-15 05:48] LABS: Basophils Percent Auto 0.1 % (0.2-2.0); Eosinophils Percent Auto 0.1 % (0.9-7.0); Hemoglobin 12.4 g/dL (12.0-16.0); Immature Granulocytes Abs Auto 0.07 10^3/uL (0.00-0.03); Immature Granulocytes Pct Auto 0.5 % (0.0-0.5); Lymphocytes Absolute Auto 0.3 10^3/uL (1.2-3.8); Lymphocytes Percent Auto 2.1 % (20.5-60.0); Mean Corpuscular Volume 87.1 fL (81.0-99.0); Mean Platelet Volume 9.7 fL (9.5-13.5); Monocytes Absolute Auto 0.3 10^3/uL (0.3-0.8); Monocytes Percent Auto 2.4 % (1.7-12.0); Neutrophils Absolute Auto 13.6 10^3/uL (1.4-6.5); Neutrophils Percent Auto 94.8 % (43.0-75.0); Platelet Count 245 10^3/uL (150-450); Red Blood Count 4.59 10^6/uL (4.20-5.40); Red Cell Distribution Width 13.7 % (11.0-15.0); White Blood Count 14.3 10^3/uL (4.0-11.0)
[2023-12-15 06:05] LABS: Anion Gap 8.2; BUN Creatinine Ratio 26.3; Calcium 9.8 mg/dL (8.5-10.1); Carbon Dioxide 37.4 mmol/L (21.0-32.0); Chloride 101 mmol/L (98-107); Estimated GFR (African America >60 (>=60); Estimated GFR (Non-African Ame >60 (>=60); Glucose 133 mg/dL (74-106); Potassium 3.6 mmol/L (3.5-5.1); Sodium 143 mmol/L (136-145)
--- NOTE | 2023-12-15 07:45 | CM.NOTE ---
Rounds made with Dr. Bass, pt continues with increased dyspnea. No discharge today. Dr. Bass discussed with pt about possible changing antibiotics and awaiting final sputum culture.
--- NOTE | 2023-12-15 07:49 | P.PN_ITS ---
Progress Note: Subjective Subjective Interval history: Call persisting, patient denies any significant improvement from previous day Exam Constitutional Vital Signs, click to edit/add: Last Vital Signs Temp 97.8 F 12/15/23 07:48 Pulse 120 H 12/15/23 07:48 Resp 20 12/15/23 07:48 BP 125/72 12/15/23 07:48 Pulse Ox 93 L 12/15/23 07:48 O2 Del Method Nasal Cannula 12/15/23 07:48 O2 Flow Rate 2 12/15/23 07:48 Documenting provider has reviewed patient's vital signs: yes Common normals: apparent distress (moderate resp distress- some conversational dyspnea -maybe slightly better ) HENMT Mouth: oral and palatal mucosa not normal (Mild thrush) Chest Common normals: inspection of chest normal Respiratory Common normals: no retractions; abnormal respiratory effort (Not significantly improved, coughing throughout the evaluation) Auscultation: rhonchi (Diffuse rhonchi-persisting, unimproved), wheezes (Persisting, unimproved), diminished lung sounds and egophony (Left upper lobe) Cardio Common normals: regular rhythm; irregular rate Rate: tachycardic GI Common normals: Normal to inspection, nondistended, normoactive bowel sounds present Neuro Common normals: oriented x3, CN's II-XII intact bilaterally and moves all extremities Progress Note: Objective Labs Labs: Short CBC 12/15/23 Range/Units 05:03 WBC 14.3 H (4.0-11.0) 10^3/uL Hgb 12.4 (12.0-16.0) g/dL Hct 40.0 (36.0-48.0) % Plt Count 245 (150-450) 10^3/uL BMP 12/15/23 05:03 Sodium 143 Potassium 3.6 Chloride 101 Carbon Dioxide 37.4 H BUN 10.0 Creatinine 0.38 L Glucose 133 H Calcium 9.8 Progress Note: A&P Assessment and Plan (1) COPD exacerbation: (2) Tachycardia: (3) Failure of outpatient treatment: Plan Admission findings: Sinus tachycardia, respiratory distress secondary to left upper lobe pneumonia with failed outpatient treatment of acute exacerbation of COPD Acute exacerbation of oxygen dependent COPD with chronic respiratory failure secondary to severe COPD secondary to left upper lobe pneumonia with acute hypoxia-O2 sat 90% on 2 L.-Changed antibiotics today secondary to lack of improvement. Sputum culture pending. Sinus tachycardia-likely related to her acute exacerbation of her COPD will monitor closely.-Stable, will DC telemetry Thrush-start patient on Magic mouthwash Admission status: Patient with failed outpatient treatment over the last week for acute exacerbation of COPD with oral antibiotics, higher dose of her baseline steroid and increasing her aerosol treatments every 4 hours. Despite this her respiratory distress is increased and she has had increasing sputum pro duction. Medically necessary treatment will span 2 midnights. Inpatient status ?
[2023-12-15] MEDS: PIPERACILLIN SODIUM/TAZOBACTAM 3.375 GM in 0.9 % SODIUM CHLORIDE 50 ML IV ×2 (09:27→16:03)
[2023-12-15] MEDS: ENSURE HP 237 ML LIQUID PO ×2 (09:28→21:00)
[2023-12-15] MEDS: FERROUS SULFATE 325 MG TABLET PO ×2 (09:28→21:00)
[2023-12-15] MEDS: CETIRIZINE HCL 10 MG TABLET PO (09:28)
[2023-12-15] MEDS: THEOPHYLLINE ANHYDROUS 400 MG TAB.ER.24H PO (09:28)
[2023-12-15] MEDS: METHYLPREDNISOLONE SOD SUCC PF 125 MG/2 ML VIAL 60 MG IVP ×3 (09:35→21:01)
[2023-12-15] MEDS: BUDESONIDE 0.5 MG/2 ML AMPULE NEB IH ×2 (11:22→23:34)
[2023-12-15] MEDS: NYSTATIN 500,000 UNIT/5 ML ORAL.SUSP 500000 UNIT PO ×3 (15:45→21:00)
[2023-12-15] MEDS: MONTELUKAST SODIUM 10 MG TABLET PO (21:00)
[2023-12-16] VITALS (13 sets, daily range): BP systolic 105–160; BP diastolic 58–92; PULSE 105–135; TEMP 36.4–36.6; O2SAT 90–94
[2023-12-16] MEDS: PIPERACILLIN SODIUM/TAZOBACTAM 3.375 GM in 0.9 % SODIUM CHLORIDE 50 ML IV ×3 (01:40→17:22)
[2023-12-16] MEDS: METHYLPREDNISOLONE SOD SUCC PF 125 MG/2 ML VIAL 60 MG IVP ×4 (03:47→21:10)
[2023-12-16] MEDS: IPRATROPIUM/ALBUTEROL SULFATE 3 ML AMPUL.NEB IH ×6 (03:57→23:12)
[2023-12-16 05:39] LABS: Basophils Percent Auto 0.1 % (0.2-2.0); Eosinophils Absolute Auto 0.1 10^3/uL (0.0-0.7); Eosinophils Percent Auto 0.6 % (0.9-7.0); Hemoglobin 12.5 g/dL (12.0-16.0); Immature Granulocytes Abs Auto 0.04 10^3/uL (0.00-0.03); Immature Granulocytes Pct Auto 0.4 % (0.0-0.5); Lymphocytes Absolute Auto 0.3 10^3/uL (1.2-3.8); Mean Corpuscular HGB Conc 30.5 g/dL (29.9-35.2); Mean Corpuscular Hemoglobin 26.8 pg (26.7-34.0); Mean Corpuscular Volume 87.8 fL (81.0-99.0); Mean Platelet Volume 9.9 fL (9.5-13.5); Monocytes Absolute Auto 0.4 10^3/uL (0.3-0.8); Monocytes Percent Auto 3.5 % (1.7-12.0); Neutrophils Percent Auto 92.4 % (43.0-75.0); Platelet Count 282 10^3/uL (150-450); Red Blood Count 4.67 10^6/uL (4.20-5.40); Red Cell Distribution Width 13.8 % (11.0-15.0); White Blood Count 10.8 10^3/uL (4.0-11.0)
[2023-12-16 05:51] LABS: Anion Gap 6.1; BUN Creatinine Ratio 34.9; Calcium 9.9 mg/dL (8.5-10.1); Carbon Dioxide 40.8 mmol/L (21.0-32.0); Chloride 100 mmol/L (98-107); Estimated GFR (African America >60 (>=60); Estimated GFR (Non-African Ame >60 (>=60); Glucose 119 mg/dL (74-106); Potassium 3.9 mmol/L (3.5-5.1); Sodium 143 mmol/L (136-145)
[2023-12-16] MEDS: NYSTATIN 500,000 UNIT/5 ML ORAL.SUSP 500000 UNIT PO ×4 (05:59→21:10)
--- NOTE | 2023-12-16 08:13 | CM.NOTE ---
Rounds made with Dr. Bass. Awaiting sputum culture results. No discharge today.
--- NOTE | 2023-12-16 08:16 | P.PN_ITS ---
Progress Note: Subjective Subjective Interval history: She is somewhat better today. Still coughing throughout the evaluation, Exam Constitutional Vital Signs, click to edit/add: Last Vital Signs Temp 97.6 F 12/16/23 03:53 Pulse 124 H 12/16/23 07:36 Resp 18 12/16/23 07:32 BP 160/92 H 12/16/23 07:32 Pulse Ox 94 L 12/16/23 07:32 O2 Del Method Nasal Cannula 12/16/23 07:32 O2 Flow Rate 2 12/16/23 07:32 Documenting provider has reviewed patient's vital signs: yes Common normals: apparent distress (moderate resp distress- some conversational dyspnea -maybe slightly better ) HENMT Mouth: oral and palatal mucosa not normal (Mild thrush) Chest Common normals: inspection of chest normal Respiratory Common normals: no retractions; abnormal respiratory effort (Does seem slightly better with her breathing today.) Auscultation: rhonchi (Does sound slightly better than previous day. Less rhonchi), wheezes (Improved today but just had breathing treatment), diminished lung sounds and egophony (Left upper lobe persisting) Cardio Common normals: regular rhythm; irregular rate Rate: tachycardic GI Common normals: Normal to inspection, nondistended, normoactive bowel sounds present Neuro Common normals: oriented x3, CN's II-XII intact bilaterally and moves all extremities Progress Note: Objective Labs Labs: Short CBC 12/16/23 Range/Units 05:08 WBC 10.8 (4.0-11.0) 10^3/uL Hgb 12.5 (12.0-16.0) g/dL Hct 41.0 (36.0-48.0) % Plt Count 282 (150-450) 10^3/uL BMP 12/16/23 05:08 Sodium 143 Potassium 3.9 Chloride 100 Carbon Dioxide 40.8 H BUN 15.0 Creatinine 0.43 L Glucose 119 H Calcium 9.9 Progress Note: A&P Assessment and Plan (1) COPD exacerbation: (2) Tachycardia: (3) Failure of outpatient treatment: Plan Admission findings: Sinus tachycardia, respiratory distress secondary to left upper lobe pneumonia with failed outpatient treatment of acute exacerbation of COPD Acute exacerbation of oxygen dependent COPD with chronic respiratory failure secondary to severe COPD secondary to left upper lobe pneumonia with acute hypoxia-O2 sat 90% on 2 L.-Antibiotics were changed yesterday. Leukocytosis is improved today. Still awaiting final culture results. With change in antibiotics yesterday, improved today, she needs further IV antibiotics by IV therapy, if improved tomorrow possible discharge home tomorrow based on sputum culture results Sinus tachycardia-likely related to her acute exacerbation of her COPD will monitor closely.-Stable, will DC telemetry Thrush-start patient on Magic mouthwash Admission status: Patient with failed outpatient treatment over the last week for acute exacerbation of COPD with oral antibiotics, higher dose of her baseline steroid and increasing her aerosol treatments every 4 hours. Despite this her respiratory distress is increased and she has had increasing sputum production. Medically necessary treatment will span 2 midnights. Inpatient status-likely just 1 more day of hospitalization for IV therapy since she failed outpatient treatment and initial IV therapy with this admission
[2023-12-16] MEDS: FERROUS SULFATE 325 MG TABLET PO ×2 (08:38→21:10)
[2023-12-16] MEDS: THEOPHYLLINE ANHYDROUS 400 MG TAB.ER.24H 200 MG PO (08:38)
[2023-12-16] MEDS: CETIRIZINE HCL 10 MG TABLET PO (08:38)
[2023-12-16] MEDS: ENSURE HP 237 ML LIQUID PO ×2 (08:38→21:10)
[2023-12-16] MEDS: BUDESONIDE 0.5 MG/2 ML AMPULE NEB IH ×2 (10:59→23:12)
--- NOTE | 2023-12-16 15:50 | RESP.RT ---
Pt was up and walking. heart rate monitored during the tx and did not increase
[2023-12-16] MEDS: 0.9 % SODIUM CHLORIDE 250 ML 10 ML IV (17:22)
[2023-12-16] MEDS: MONTELUKAST SODIUM 10 MG TABLET PO (21:10)
[2023-12-17] VITALS: BP 123/76; PULSE 126; TEMP 36.4; O2SAT 92
[2023-12-17] MEDS: PIPERACILLIN SODIUM/TAZOBACTAM 3.375 GM in 0.9 % SODIUM CHLORIDE 50 ML IV ×2 (01:37→09:00)
[2023-12-17 04:00] VITALS: BP 149/81; PULSE 112; TEMP 36.6; O2SAT 96
[2023-12-17 04:01] VITALS: PULSE 116; O2SAT 92
[2023-12-17] MEDS: IPRATROPIUM/ALBUTEROL SULFATE 3 ML AMPUL.NEB IH ×3 (04:01→11:18)
[2023-12-17] MEDS: METHYLPREDNISOLONE SOD SUCC PF 125 MG/2 ML VIAL 60 MG IVP ×2 (04:42→09:00)
[2023-12-17] MEDS: NYSTATIN 500,000 UNIT/5 ML ORAL.SUSP 500000 UNIT PO (05:43)
[2023-12-17 06:04] LABS: Eosinophils Percent Auto 0.4 % (0.9-7.0); Hemoglobin 12.7 g/dL (12.0-16.0); Immature Granulocytes Abs Auto 0.06 10^3/uL (0.00-0.03); Immature Granulocytes Pct Auto 0.8 % (0.0-0.5); Lymphocytes Absolute Auto 0.4 10^3/uL (1.2-3.8); Lymphocytes Percent Auto 5.2 % (20.5-60.0); Mean Corpuscular HGB Conc 30.2 g/dL (29.9-35.2); Mean Corpuscular Hemoglobin 26.7 pg (26.7-34.0); Mean Corpuscular Volume 88.2 fL (81.0-99.0); Mean Platelet Volume 9.5 fL (9.5-13.5); Monocytes Absolute Auto 0.4 10^3/uL (0.3-0.8); Monocytes Percent Auto 5.5 % (1.7-12.0); Neutrophils Absolute Auto 6.7 10^3/uL (1.4-6.5); Neutrophils Percent Auto 88.1 % (43.0-75.0); Platelet Count 263 10^3/uL (150-450); Red Blood Count 4.76 10^6/uL (4.20-5.40); Red Cell Distribution Width 13.3 % (11.0-15.0); White Blood Count 7.6 10^3/uL (4.0-11.0)
[2023-12-17 06:19] LABS: Anion Gap 2.9; BUN Creatinine Ratio 35.1; Calcium 9.4 mg/dL (8.5-10.1); Chloride 96 mmol/L (98-107); Estimated GFR (African America >60 (>=60); Estimated GFR (Non-African Ame >60 (>=60); Glucose 125 mg/dL (74-106); Potassium 3.9 mmol/L (3.5-5.1); Sodium 139 mmol/L (136-145)
[2023-12-17 07:08] VITALS: PULSE 111; O2SAT 94
--- NOTE | 2023-12-17 07:54 | CM.NOTE ---
Rounds made with Dr. Bass, pt will discharge to home today. Pt denies any discharge needs.
[2023-12-17 08:00] VITALS: BP 159/88; PULSE 104; TEMP 36.6; O2SAT 92
[2023-12-17] MEDS: ENSURE HP 237 ML LIQUID PO (09:00)
[2023-12-17] MEDS: THEOPHYLLINE ANHYDROUS 400 MG TAB.ER.24H 200 MG PO (09:00)
[2023-12-17] MEDS: CETIRIZINE HCL 10 MG TABLET PO (09:01)
[2023-12-17] MEDS: FERROUS SULFATE 325 MG TABLET PO (09:01)
--- NOTE | 2023-12-17 09:55 | CM.NOTE ---
[facility] Tail Board Man reached out for continuation of care for patient. Thao will be pt's new Tail Board Man from [facility] and information put on discharge paper with her contact information. Discussed this with pt, pt verbalizes understanding.
--- NOTE | 2023-12-17 10:33 | P.DS_ITS ---
DS: Providers Provider Date of admission: 12/13/23 08:04 Primary care physician: Kaiden Bass MD Consults: 12/13/23 07:57 Consult to Pharmacy Routine Consulting Provider: Reason for consultation: Please [place] me when Med Rec is Updated Has provider been notified: No Occupational Therapy Eval and Treat Routine Reason for consultation: Only if needed for Rehab Has provider been notified: No Physical Therapy Eval and Treat Routine Reason for consultation: Eval and Treat Has provider been notified: No DS: Diagnosis Discharge Diagnosis (1) COPD exacerbation: (2) Tachycardia: (3) Failure of outpatient treatment: Plan Admission findings: Sinus tachycardia, respiratory distress secondary to left upper lobe pneumonia with failed outpatient treatment of acute exacerbation of COPD Acute exacerbation of oxygen dependent COPD with chronic respiratory failure secondary to severe COPD secondary to left upper lobe pneumonia with acute hypoxia-O2 sat 90% on 2 L.-Antibiotics were changed yesterday. Improved being at the time of discharge Sinus tachycardia-discharge Thrush-stable at the time of discharge Admission status: Patient with failed outpatient treatment over the last week for acute exacerbation of COPD with oral antibiotics, higher dose of her baseline steroid and increasing her aerosol treatments every 4 hours. Despite this her respiratory distress is increased and she has had increasing sputum production. Medically necessary treatment will span 2 midnights. Inpatient status-likely just 1 more day of hospitalization for IV therapy since she failed outpatient treatment and initial IV therapy with this admission ? DS: Summary Hospital Course Hospital Course: Patient seen me in the office several times over the last 2 weeks trying to improve her acute exacerbation of COPD. Including oral antibiotics and IV's and IM and oral steroids. Feeling that and with increasing cough and shortness of breath she presented to the emergency room. Initially she had significant leukocytosis this is after 2 days of IV antibiotics. His antibiotics were adjusted and her leukocytosis did resolve. Sputum culture did not grow any significant growth however patient did improve with antibiotics so she will be discharged to home in improving condition. Medications see list. See me in the office within the next 1 to 3 days. Time Spent with Patient Time attestation: Total time spent providing and/or coordinating discharge services: Exam Constitutional Vital Signs, click to edit/add: Last Vital Signs Temp 97.9 F 12/17/23 08:00 Pulse 104 H 12/17/23 08:00 Resp 22 H 12/17/23 08:00 BP 159/88 H 12/17/23 08:00 Pulse Ox 92 L 12/17/23 08:00 O2 Del Method Nasal Cannula 12/17/23 08:00 O2 Flow Rate 2 12/17/23 08:00 Documenting provider has reviewed patient's vital signs: yes Common normals: apparent distress (moderate resp distress- some conversational dyspnea -maybe slightly better ) HENMT Mouth: oral and palatal mucosa not normal (Mild thrush) Chest Common normals: inspection of chest normal Respiratory Common normals: no retractions; abnormal respiratory effort (Does seem slightly better with her breathing today.) Auscultation: rhonchi (Does sound slightly better than previous day. Less rhonchi), wheezes (Improved today but just had breathing treatment), diminished lung sounds and egophony (Left upper lobe persisting) Cardio Common normals: regular rhythm; irregular rate Rate: tachycardic GI Common normals: Normal to inspection, nondistended, normoactive bowel sounds present Neuro Common normals: oriented x3, CN's II-XII intact bilaterally and moves all extremities DS: Data Data Completed and Pending Labs on day of discharge: Labs from last 24 hours 12/17/23 05:42 WBC 7.6 RBC 4.76 Hgb 12.7 Hct 42.0 MCV 88.2 MCH 26.7 MCHC 30.2 RDW 13.3 Plt Count 263 MPV 9.5 Neut % (Auto) 88.1 H Lymph % (Auto) 5.2 L [place] % (Auto) 5.5 Eos % (Auto) 0.4 L Baso % (Auto) 0.0 L Neut # (Auto) 6.7 H Lymph # (Auto) 0.4 L [place] # (Auto) 0.4 Eos # (Auto) 0.0 Baso # (Auto) 0.0 Abs Immat Gran (auto) 0.06 H Imm/Tot Granulo (auto) 0.8 H Sodium 139 Potassium 3.9 Chloride 96 L Carbon Dioxide 44.0 H Anion Gap 2.9 BUN 13.0 Creatinine 0.37 L Est GFR ( Amer) >60 Est GFR (Non-Af Amer) >60 BUN/Creatinine Ratio 35.1 Glucose 125 H Calcium 9.4 Discharge Plan Discharge Disposition: Home, Self-Care Discharge Medications: New amoxicillin-pot clavulanate 875-125 mg tablet 1 tab PO Q12H Qty: 20 0RF prednisone 10 mg tablet 50 mg PO DAILY Qty: 47 0RF Rx Instructions: 5/day for 3 days. 4/day for 3 days, 3/day for 3 days, 2/day for 3 days, 1/day for 3 days, 1/2 /day for 4 days Continued budesonide 0.5 mg/2 mL suspension for nebulization 0.5 mg inhalation Q12H ipratropium-albuterol 0.5 mg-3 mg(2.5 mg base)/3 mL solution for nebulization 3 ml INHALATION Q6H montelukast 10 mg tablet 10 mg PO .hs Stiolto Respimat 2.5-2.5 mcg/actuation mist 2 puff INHALATION Q24H theophylline 400 mg tablet extended release 24 hr 400 mg PO DAILY albuterol sulfate [ProAir HFA] 90 mcg/actuation HFA aerosol inhaler 2 inh inhalation QID PRN (Reason: SOB) ferrous sulfate 325 mg (65 mg iron) tablet 325 mg PO BID Qty: 60 11RF cetirizine 10 mg tablet 10 mg PO DAILY prednisone 5 mg tablet 5 mg PO DAILY Activity: resume usual activities as tolerated Diet: advance to your usual diet Print Language: Arabic Patient Instructions: Prednisone (By mouth), Amoxicillin/Clavulanate Potassium (By mouth), COPD (Chronic Obstructive Pulmonary Disease) (DC) Plaster Maker/Paste Mixing Supervisor Instructions: Maria Teresa Plaster Maker [facility] [place] [phone] Forms: Portal Instructions Follow Up Appointments: [email or web address] @ 8:45am with Dr. Bass [phone]
--- NOTE | 2023-12-17 10:46 | CM.NOTE ---
Discussed with pt about chronic disease management, pt is still going to outpatient pulmonary rehab and states she plans on continuing. Pt also has f/u appt's scheduled for primary care doctor and hog cooler.
[2023-12-17] MEDS: BUDESONIDE 0.5 MG/2 ML AMPULE NEB IH (11:18)
[2023-12-17 11:20] VITALS: O2SAT 95
--- NOTE | 2023-12-18 14:02 | CM.DCFOLLOWU ---
Person spoke with: patient How are you feeling? still hard to breath, but wears home oxygen and is monitoring her pulse ox How is your pain? just difficulty breathing, advised to come back to ED if worsens Did you understand your discharge instructions? yes Do you have any questions about your discharge instructions? no Were you given any prescriptions at discharge? yes Were you able to get your prescriptions filled?yes Do you understand how to take your medications as ordered?yes Do you have any questions about your follow up appointment and do you plan to keep your follow up appointment? no questions, follow up reviewed Is there anything else that you would like to discuss? no Questions/Comments/Concerns/Other: none
== END 2023-12-17 12:23 | disposition home or self-care (01) | DRG 139 ==
LOC: ER 06:53 → MS 08:12
PROVIDERS: Admitting Provider Family Medicine; Emergency Provider Internal Medicine; PCP Family Medicine; Visit Provider Family Medicine
DX: J18.9 Pneumonia, unspecified organism (principal); J44.0 Chronic obstructive pulmonary disease with (acute) lower respiratory infection; J44.1 Chronic obstructive pulmonary disease with (acute) exacerbation; R00.0 Tachycardia, unspecified; B37.0 Candidal stomatitis; J96.11 Chronic respiratory failure with hypoxia; Z90.49 Acquired absence of other specified parts of digestive tract; Z79.899 Other long term (current) drug therapy; Z20.822 Contact with and (suspected) exposure to COVID-19; Z99.81 Dependence on supplemental oxygen; Z87.891 Personal history of nicotine dependence
CPT/HCPCS: 36415; 71045; 80048; 83605; 84484; 85007; 85025; 85027; 87070; 87804; 87811; 93005; 94640; 94667; 94668; 94761; 96365; 96366; 96367; 96375; 96376; 99285; J2543; J2919

== ENCOUNTER 2023-12-28 20:31 | Outpatient (OUT) | payer OTHER, SELFPAY ==
--- OUTSIDE RECORDS SUMMARY | 2023-12-28 20:38 | XMS_ITS | CCD ---
[facility] Prov[facility] Care Fisher Spear Name Role Phone Adithya Kenyon Unavailable Unavailable JAYE HOUGH Unavailable Unavailable ADITHYA KENYON Unavailable Unavailable ABDOH, MAMOUN Unavailable Unavailable Adithya Kenyon MD Primary Care Provider [phone] Adithya Kenyon MD Primary Care Provider [phone] Adithya Kenyon MD Primary Care Provider [phone] DR JOSE CONDE Admitting [...] Unavailable OMAR ., TAMIA Consulting Unavailable FABIOLA WILD Consulting Unavailable EAMON ANDREWS Consulting Unavailable HOY ., DR HAJI Admitting Unavailable HOY ., DR HAJI Attending Unavailable HOY ., DR HAJI Consulting Unavailable HOY ., DR HAJI Primary Care Unavailable HOUSTON, DR JULES Naranjo Consulting Unavailable HOY ., [...] HOY ., DR HAJI Primary Care Unavailable Adithya Kenyon MD Primary Care Provider [phone] ANA DRIVER Attending Unavailable ANA DRIVER Attending Unavailable CARLA MONTAGUE Attending Unavailable Adithya Kenyon MD Primary Care Provider [phone] TEO CRAFT Referring Unavailable HOY, ADITHYA M Primary Care Unavailable PRENROSANNA, TEO Referring Unavailable HOY, ADITHYA M Primary Care Unavailable HOY, ADITHYA M Primary Care Unavailable VINCENT BRIE Referring Unavailable LINDY, ABDI Referring Unavailable HOY, ADITHYA M Primary Care Unavailable HOY, ADITHYA M Primary Care Unavailable STOCK, KHUSHBOO E Admitting Unavailable STOCK, KHUSHBOO E Attending Unavailable HOY, ADITHYA M Primary Care Unavailable LINDY, ABDI Attending Unavailable LINDY, ABDI Referring Unavailable HOY, ADITHYA M Primary Care Unavailable ABI CRAFTON L Attending Unavailable HOY, ADITHYA M Primary Care Unavailable HOY, ADITHYA M Primary Care Unavailable VENANCIO, TEO L Admitting Unavailable ABI CRAFTON L Attending Unavailable MD Adithya Kenyon Primary Care Provider [phone] [facility], DO Rip Clinton Emergency Provider MD Mg Vaughn Admit Provider [phone] MD Mg Vaughn Attending Provider MD Adithya Kenyon Primary Care Provider [phone] [facility], DO Rip Clinton Emergency Provider MD Mg Vaughn Admit Provider [phone] MD Cassandra Andersen Attending Provider MD Denver Rasmussen Other Provider Ally Warner Admitting Unavailable Cassandra Andersen Attending Unavailable Adithya Kenyon Primary Care Unavailable Denver Rasmussen Consulting Unavaila ble Cassandra Andersen Attending Unavailable Adithya Kenyon Primary Care Unavailable Mg Vaughn Admitting Unava ilable Allergies Allergy Classification Reported Allergen(s) Allergy Type Date of Onset Reaction(s) Facility (20 sources) levoFLOXacin; Translations: [LEVOFLOXACIN] Drug Allergy 03-02-[address] [facility] Other [place] [facility] (2 sources) levoFLOXacin Drug Allergy [facility] Rep[facility] Medications Current Medications Medication Drug Class(es) Dates Sig (Normalized) Sig (Original) [id number] 200 actuat albuterol 0.09 mg/actuat metered dose [...] / ipratropium bromide 0.167 mg/ml inhalation solution (9 sources) Anticholinergic, beta2-Adrenergic Agonist Start: take 1 mL by inhalation every six hours Ipratropium-Albute rol Active 3 ML INHALATION Q6H May 13, 2023 1:00am Ipratropium-Albu terol 0.5-2.5 (3) MG/3ML DIRECTED Inhalation Active ALPRAZolam 0.25 mg oral tablet (1 source) Benzodiazepine Start: 12-24-2023 take 0.25 mg by mouth three times daily Alprazolam Active 0.25 MG PO Three times daily 14 5 December 24, 2023 12:00am Bilevel Positive Airway Pressure (Bipap) (7 sources) Start: 12-03-2023 Bilevel Positi ve Airway Pressure (Bipap) Active 0 .Route December 03, 2023 9:28am As directed [facility] not using at this time Start: 09-29-2023 End: 12-03-2023 Bilevel Positive Airway Pres sure (Bipap) Discontinued 0 .ROUTE September 29, 2023 12:00am December 03, 2023 9:28am As directed [facility] Start: 09-29-2023 Bilevel Positi ve Airway Pressure (Bipap) Active 0 .ROUTE September 29, 2023 12:00am As directed [facility] budesonide 0.25 mg/ml inhalation suspension (20 sources) Corticosteroid Start: 05-13-2023 End: 11-11-2023 take 0.5 mg by inhalation every twelve hours Budesonide Active 0.5 MG INHALATION Q12H 120 November 11, 2023 11:19am DX J44.9 COPD [...] tablet (20 sources) Histamine-1 Receptor Antagonist Start: take 10 mg by mouth once daily Cetirizine Active 10 MG PO Daily September 29, 2023 12:00am Cetirizine 10 mg cap Take by mouth. Active take 1 tablet by pankaj th every twenty-four hours Cetirizine HCl 10 MG 1 tablet Orally Onc e a day Active Comment on above: Take by mouth. ferrous sulfate 325 mg oral tablet (1 source) Start: 12-21-2023 take 325 mg by mouth twice daily Ferrous Sulfate Active 325 MG PO Twice daily December 21, 2023 12:00am 12 hr guaiFENesin 600 mg extended release oral tablet (5 sources) Start: 05-17-2023 take 1 tablet by [...] mg by mouth daily at bedtime. nystatin [id number] unt/ml oral suspension (8 sources) Polyene Antifungal Start: take 496153 [IU] by mouth three times daily Nystatin Active 879357 UNIT PO Three times daily May 17, 2023 9:48am Nystatin 388499 units/mL 1 mL to each cheek Four [...] 8 tablet 0 11/18/2023 11/21/2023 Active Oxygen (8 sources) Start: 09-29-2023 Oxygen Active 0 .Route September 29, 2023 1:31pm As directed [facility] Start: 09-29-2023 End: 09-29-2023 Oxygen Discontinued 0 .Route September 29, 2023 12:00am September 29, 2023 1:32pm As directed oxygen as ordered (3 sources) oxygen as ordere d [facility] Active predniSONE 10 mg oral tablet (20 sources) Start: 12-24-2023 take 1 tablet by mouth three times daily Prednisone Active 10 MG PO As Directed December 24, 2023 12:00am Take 1 tablet 3 times a day for 4 days then 1 tablet twice a day for 4 days then 1 tablet daily for 4 days then resume your daily prednisone 5 mg daily. Start: 12-03-2023 take 5 mg by mouth [...] 1:21pm Start: 02-02-2018 take 1 capsule by [facility] once daily, then take 2 capsules by mouth every twenty-four hours Theophylline SR (MI-24) 400 mg 24 hr capsule Take 200 mg by mouth once daily. 12 02/02/2018 Active Start: 02-02-2018 take 1 capsule by mo ut once daily, then take 1 capsule by [...] Drug Class(es) Dates Sig (Normalized) Sig (Original) amoxicillin 875 mg / clavulanate 125 mg oral tablet (2 sources) Penicillin-class Antibacterial Start: 12-20-2023 End: 12-24-2023 take 1 tablet by mouth twice daily Amoxicillin-Pot Clavulanate Discontinued 1 TAB PO Twice daily December 20, 2023 12:00am December 24, 2023 8:43am Budesonide / formoterol (1 source) Corticosteroid, beta2-Adrenergic Agonist End: 07-01-2021 take 2 puff(s) by inhalation twice daily budesonide-formotero l (SYMBICORT) 160-4.5 mcg/actuation inhaler Inhale 2 Puffs as instructed twice daily. 0 07/01/2021 Discontinued (Discontinued by another Health Care Provider) Comment on above: Inhale 2 Puffs as in structed twice daily. docusate sodium 50 mg / sennosides, mcc 8.6 mg oral tablet (20 sources) Start: 05-25-2018 End: 11-17-2023 take 2 tablets by mouth every twelve hours as needed senna-docusate (SENOKOT-S) 8.6-50 mg per tablet Take 2 tablets by mouth twice daily as needed. 100 tablet 1 05/25/2018 11/17/2023 Discontinued Comment on above: Take 2 tablets by mo [facility] twice daily as needed. iv contrast (will [...] guidelines link. levoFLOXacin 500 mg oral tablet (11 sources) Quinolone Antimicrobial Start: 05-17-19 End: 09-29-19 [...] STATUS OTH ANTIBIOTIC AGENT] Onset: 09-09-2022 Episodic Anxiety disorders (2 sources) Anxiety; Translations: [Anxiety disorder, unspecified] Onset: 12-21-2023 12-24-2023 Chronic Bacterial infection; unspecified site (1 source) Pseudomonas [...] and lung] Onset: 09-09-2022 Episodic Cardiac dysrhythmias (8 sources) Tachycardia; Translations: [Tachycardia, unspecified] 05-13-2023 Episodic [...] behavior of respiratory system] Episodic Nutritional deficiencies (1 source) Deficiency of macronutrients; Translations: [Unspecified severe protein-calorie malnutrition] 12-24-2023 Chronic Other aftercare (1 source) retirement (current) use of systemic steroids; Translations: [SALESPERSON NECKTIES USE OF SYSTEMIC STEROIDS] Onset: 09-09-2022 Episodic Other aftercare (1 source) intermission coordinator (current) use of inhaled steroids; Translations: [SALESPERSON NECKTIES USE OF INHALED STEROIDS] Onset: 09-09-2022 Episodic Other aftercare (1 source) Other senior living (current) drug therapy; Translations: [OTH MCC CURRENT DRUG THERAPY] Onset: 09-09-2022 Episodic Other [...] caused by tuberculosis or sexually transmitted disease) (11 sources) Pneumonia; Translations: [Pneumonia, unspecified organism] Onset: 05-14-2023 05-13-2023 Episodic Residual codes; unclassified (3 sources) Obstructive sleep apnea syndrome; Translations: [Obstructive sleep apnea (adult) (pediatric)] 12-03-2023 Chronic Residual codes; unclassified (6 sources) Obstructive sleep apnea (adult) (pediatric); Translations: [Obstructive sleep apnea (adult)(pediatric)] Onset: 12-21-2023 12-03-2023 Chronic Residual codes; unclassified (3 sources) Past history of procedure; Translations: [Other specified postprocedural states] 12-03-2023 Episodic Respiratory failure; insufficiency; arrest (adult) (20 sources) Chronic respiratory failure with hypoxia; Translations: [Chronic hypoxemic respiratory failure] Onset: 03-02-2018 03-02-2018 Chronic Screening and history of mental health and substance abuse codes (8 sources) Personal history of nicotine dependence; Translations: [Ex-smoker] Onset: 09-09-2022 11-17-2023 Episodic Secondary malignancies (6 sources) Secondary malignant neoplasm of lymph nodes [...] Translations: [Chest pain, unspecified] Onset: 03-24-2017 Episodic Nutritional deficiencies (18 sources) Cachexia; Translations: [Cachexia] Onset: 05-14-2023 05-14-2023 Episodic Other lower respiratory disease (20 sources) [...] congestion; Translations: [NASAL CONGESTION] Onset: 04-11-2022 Episodic Respiratory failure; insufficiency; arrest (adult) (9 sources) Acute respiratory failure with hypoxia; Translations: [Acute respiratory failure] Onset: 09-09-2022 05-14-2023 Episodic Unclassified (1 source) CONTACT W/AND (SUSP) EXPOS COVID-19; Translations: [CONTACT W/AND (SUSP) EXPOS COVID-19] Onset: 04-08-2022 Results Test Name Value Interpretation Reference Range Facility Basic Metabolic Panelon 12-12 Creatinine Clr Calc Pharmacy 90.01 Normal [facility] Comment on above: Result Comment: PERF ORMED BY: [place] [address] PATHOLOGIST SCALE MECHANIC JASMEET LIN M.D. Performed By: #### C MP, CBC, HS TROP, TSH3 wRFLX #### [place] [address] [place] GFR/1.73 sq M.predicted MDRD (S/P/Bld) [Vol rate/Area] mL/min/{1.73_m2} Normal [facility] Comment on above: Performed By: #### C MP, CBC, HS TROP, TSH3 wRFLX #### [place] [address] [place] Calcium [Mass/volume] in Ser um or PlasmaOrdered By: Cassandra Andersen on 12-23-2023 Calcium [Mass/Vol] 9.4 mg/dL Normal 8.6-10.3 [facility] Comment on above: Performed By: #### C MP, CBC, HS TROP, TSH3 wRFLX #### [facility] [address] [place] [address] [place] Carbon dioxide, total [Moles /volume] in Serum or PlasmaOrdered By: Cassandra Andersen on 12-23-2023 CO2 [Moles/Vol] 44.4 mmol/L High 21.0-31.0 [facility] Comment on above: Performed By: #### C MP, CBC, HS TROP, TSH3 wRFLX #### [facility] [address] [place] [address] [place] Chloride [Moles/volume] in S karmen or PlasmaOrdered By: Cassandra Andersen on 12-23-2023 Chloride [Moles/Vol] 92 mmol/L Low 98-107 [facility] Comment on above: Performed By: #### C MP, CBC, HS TROP, TSH3 wRFLX #### [facility] [address] [place] [address] [place] Creatinine [Mass/volume] in Serum or PlasmaOrdered By: Cassandra Andersen on 12-23-2023 Creatinine [Mass/Vol] 0.40 mg/dL Low 0.60-1.20 [facility] Comment on above: Performed By: #### C MP, CBC, HS TROP, TSH3 wRFLX #### [facility] [address] Glucose [Mass/volume] in Ser um or PlasmaOrdered By: Cassandra Andersen on 12-23-2023 Glucose [Mass/Vol] 80 mg/dL Normal 70-100 [facility] Comment on above: ADA recommended refe rence rangeRandom Glucose Reference Range is dependent on time and content of last meal. Glucose of more than 200 mg/dL in a nonstressed, ambulatory subject supports the diagnosis of Diabetes Mellitus. Result Comment: [place] om Glucose Reference Range is dependent on time and content of last meal. Glucose of more than 200 mg/dL in a nonstressed, ambulatory subject supports the diagnosis of Diabetes Mellitus. ADA recommended reference range Performed By: #### C MP, CBC, HS TROP, TSH3 wRFLX #### [facility] [address] [place] [address] No Panel InformationOrdered By: Cassandra Andersen on 12-23-2023 Estimated GFR (CKD-EPI) > 60.0 mL/Min [facility] Creatinine Clearance (Chem 90.01 [facility] Potassium [Moles/volume] in Serum or PlasmaOrdered By: Cassandra Andersen on 12-23-2023 Potassium [Moles/Vol] 4.5 mmol/L Normal 3.5-5.1 [facility] Comment on above: Performed By: #### C MP, CBC, HS TROP, TSH3 wRFLX #### [facility] [address] [place] [address] Serum or plasma anion gap de terminationOrdered By: Cassnadra Andersen on 12-23-2023 Anion gap [Moles/Vol] 8.1 mmol/L Normal 6.0-15.0 [facility] Comment on above: Performed By: #### C MP, CBC, HS TROP, TSH3 wRFLX #### [facility] [address] [place] [address] [place] Sodium [Moles/volume] in Ser um or PlasmaOrdered By: Cassandra Andersen on 12-23-2023 Sodium [Moles/Vol] 140 mmol/L Normal 136-145 [facility] Comment on above: Performed By: #### C MP, CBC, HS TROP, TSH3 wRFLX #### [facility] [address] [place] [address] [place] Urea nitrogen [Mass/volume] in Serum or PlasmaOrdered By: Cassandra Andersen on 12-23-2023 Urea nitrogen [Mass/Vol] 12 mg/dL Normal 7-25 [facility] Comment on above: Performed By: #### C MP, CBC, HS TROP, TSH3 wRFLX #### [address] Aerobic Cultureon 12-22-2023 Aerobic Culture ORGANISM: Milagros albicans (O:CANALB) Quantity of Growth Light Growth Gram Stain Result 2+ White Blood Cells 2+ Epithelial Cells 3+ Gram Positive Coccobacilli 2+ Gram Positive Cocci in Pairs PERFORMED BY: [place] [address] PATHOLOGIST SCALE MECHANIC JASMEET LIN M.D. Normal [facility] Comment on above: Performed By: #### C MP, CBC, HS TROP, TSH3 wRFLX #### [place] [id number] [facility] Gram Stainon 12-22-2023 Microscopic observation Gram stain Nom (Unsp spec) Gram Stain Result 2+ White Blood Cells 2+ Epithelial Cells 3+ Gram Positive Coccobacilli 2+ Gram Positive Cocci in Pairs PERFORMED BY: [place] [address] PATHOLOGIST SCALE MECHANIC JASMEET LIN M.D. Normal [facility] Comment on above: Performed By: #### C MP, CBC, HS TROP, TSH3 wRFLX #### [place] [id number] [facility] Gram stain for investigation of transfusion reactionOrdered By: Denver Rasmussen on 12-22-2023 Microscopic observation Gram stain Nom (Unsp spec) Yeast Like Organism Abnormal [facility] Alanine aminotransferase [En zymatic activity/volume] in Serum or PlasmaOrdered By: Mg Vaughn on 12-21-2023 ALT [Catalytic activity/Vol] 25 U/L Normal 7-52 [facility] Comment on above: Performed By: #### C BC, CMP #### [facility] [address] [place] [address] [place] Albumin [Mass/volume] in Ser um or Plasma by Bromocresol green (BCG) dye binding methoOrdered By: Mg Vaughn on 12-21-2023 Albumin BCG dye [Mass/Vol] 3.9 g/dL 3.5-5.7 [facility] Alkaline phosphatase [Enzyma tic activity/volume] in Serum or PlasmaOrdered By: Mg Vaughn on 12-21-2023 ALP [Catalytic activity/Vol] 73 U/L Normal 34-104 [facility] Comment on above: Performed By: #### C ELIF, CMP #### [facility] [address] [place] [address] [place] Aspartate aminotransferase [ Enzymatic activity/volume] in Serum or PlasmaOrdered By: Mg Vaughn on 12-21-2023 AST [Catalytic activity/Vol] 21 U/L Normal 13-39 [facility] Comment on above: Performed By: #### C ELIF, CMP #### [facility] [address] Automated basophil %Ordered By: Mg Vaughn on 12-21-2023 Basophils/100 WBC (Bld) 0.5 % Normal . [facility] Comment on above: Performed By: #### C BC, CMP #### [facility] [address] Automated basophil countOrde red By: Mg Vaughn on 12-21-2023 Basophils (Bld) [#/Vol] 0.0 10*3/uL Normal 0.0-0.2 [facility] Comment on above: Result Comment: PERF ORMED BY: [place] [address] PATHOLOGIST SCALE MECHANIC JASMEET LIN M.D. Performed By: #### C BC, CMP #### [address] Automated blood monocyte cou ntOrdered By: Mg Vaughn on 12-21-2023 Monocytes (Bld) [#/Vol] 0.8 10*3/uL Normal 0.0-0.8 [facility] Comment on above: Performed By: #### C BC, CMP #### [address] Automated eosinophil %Ordere d By: Mg Vaughn on 12-21-2023 Eosinophils/100 WBC (Bld) 2.0 % Normal . [facility] Comment on above: Performed By: #### C BC, CMP #### [address] Automated eosinophil countOr dered By: Mg Vaughn on 12-21-2023 Eosinophils (Bld) [#/Vol] 0.1 10*3/uL Normal 0.0-0.45 [facility] Comment on above: Performed By: #### C BC, CMP #### [address] Automated monocyte %Ordered By: Mg Vaughn on 12-21-2023 Monocytes/100 WBC (Bld) 10.7 % Normal . [facility] Comment on above: Performed By: #### C BC, CMP #### [address] Automated neutrophil %Ordere d By: Mg Vaughn on 12-21-2023 Neutrophils/100 WBC (Bld) 58.3 % Normal . [facility] Comment on above: Performed By: #### C BC, CMP #### [address] Bilirubin.total [Mass/volume ] in Serum or PlasmaOrdered By: Mg Vaughn on 12-21-2023 Bilirubin [Mass/Vol] 0.4 mg/dL Normal 0.3-1.0 [facility] Comment on above: Performed By: #### C BC, CMP #### [address] BioFire Not Detectedon 12-20 BioFire Not Detected Not detected Normal Not Detecte [facility] Comment on above: Result Comment: This is a duplicate RP2.1 COVID (PCR) result to be used for statistical tracking purpose only. PERFORMED BY: [place] [address] PATHOLOGIST SCALE MECHANIC JASMEET LIN M.D. Performed By: #### R TERRI PANEL UPP., BIOFIRECOVNOTDE #### [address] COVID-19 Detected/Not Detect edOrdered By: Mg Vaughn on 12-21-2023 SARS-CoV-2 (COVID-19) RNA KRUNAL+non-probe Ql (Nph) Not detected Not Detecte [facility] Comment on above: This is a duplicate RP2.1 COVID (PCR) result to be used for statistical tracking purpose only. Complete Blood Count Auto Di ffon 12-21-2023 Mean Corpuscular HGB Conc 32.3 g/dL Normal 32.0-35.0 [facility] Comment on above: Performed By: #### C BC, CMP #### [address] NRBC% 0.1 /100{WBC} Normal 0-0.5 [facility] Comment on above: Performed By: #### C BC, CMP #### [address] Comprehensive Metabolic Pane shelby 12-21-2023 Albumin [Mass/Vol] 3.9 g/dL Normal 3.5-5.7 [facility] Comment on above: Performed By: #### C BC, CMP #### [address] Anion gap [Moles/Vol] Not performed Normal 6.0-15.0 [facility] Comment on above: Performed By: #### C BC, CMP #### [address] Calcium [Mass/Vol] 9.6 mg/dL Normal 8.6-10.3 [facility] Comment on above: Performed By: #### C BC, CMP #### [address] Chloride [Moles/Vol] 87 mmol/L Low 98-107 [facility] Comment on above: Performed By: #### C BC, CMP #### [address] CO2 [Moles/Vol] mmol/L High 21.0-31.0 [facility] Comment on above: Performed By: #### C BC, CMP #### [address] Creatinine [Mass/Vol] 0.42 mg/dL Low 0.60-1.20 [facility] Comment on above: Performed By: #### C BC, CMP #### [address] Creatinine Clr Calc Pharmacy 85.29 Normal [facility] Comment on above: Result Comment: PERF ORMED BY: [place] [address] PATHOLOGIST SCALE MECHANIC JASMEET LIN M.D. Performed By: #### C BC, CMP #### [address] GFR/1.73 sq M.predicted MDRD (S/P/Bld) [Vol rate/Area] mL/min/{1.73_m2} Normal [facility] Comment on above: Performed By: #### C BC, CMP #### [address] Glucose [Mass/Vol] 81 mg/dL Normal 70-100 [facility] Comment on above: Result Comment: [place] Glucose Reference Range is dependent on time and content of last meal. Glucose of more than 200 mg/dL in a nonstressed, ambulatory subject supports the diagnosis of Diabetes Mellitus. ADA recommended reference range Performed By: #### C BC, CMP #### [address] Potassium [Moles/Vol] 3.9 mmol/L Normal 3.5-5.1 [facility] Comment on above: Performed By: #### C BC, CMP #### [address] Sodium [Moles/Vol] 139 mmol/L Normal 136-145 [facility] Comment on above: Performed By: #### C BC, CMP #### [address] Urea nitrogen [Mass/Vol] 14 mg/dL Normal 7-25 [facility] Comment on above: Performed By: #### C BC, CMP #### [address] Erythrocyte distribution wid th [Ratio] by Automated countOrdered By: Mg Vaughn on 12-21-2023 Erythrocyte distribution width (RBC) [Ratio] 14.3 % Normal 11.9-15.3 [facility] Comment on above: Performed By: #### C BC, CMP #### [address] Erythrocytes [#/volume] in B lood by Automated countOrdered By: Mg Vaughn on 12-21-2023 RBC (Bld) [#/Vol] 5.25 10*6/uL High 3.60-5.00 [facility] Comment on above: Performed By: #### C BC, CMP #### [address] Hematocrit [Volume Fraction] of Blood by Automated countOrdered By: Mg Vaughn on 12-21-2023 Hematocrit (Bld) [Volume fraction] 43.9 % Normal 34.0-46.4 [facility] Comment on above: Performed By: #### C BC, CMP #### [address] Hemoglobin [Mass/volume] in BloodOrdered By: Mg Vaughn on 12-21-2023 Hemoglobin (Bld) [Mass/Vol] 14.2 g/dL Normal 11.8-15.4 [facility] Comment on above: Performed By: #### C BC, CMP #### [address] Leukocytes [#/volume] correc sommer for nucleated erythrocytes in Blood by Automated counOrdered By: Mg Vaughn on 12-21-2023 WBC corrected for nucl RBC Auto (Bld) [#/Vol] 7.0 10*3/uL 3.8-11.6 [facility] Leukocytes [#/volume] in Blo od by Automated countOrdered By: Mg Vaughn on 12-21-2023 WBC (Bld) [#/Vol] 7.0 10*3/uL Normal 3.8-11.6 [facility] Comment on above: Performed By: #### C BC, CMP #### [address] Lymphocytes [#/volume] in Bl ood by Automated countOrdered By: Mg Vaughn on 12-21-2023 Lymphocytes (Bld) [#/Vol] 2.0 10*3/uL Normal 1.00-4.8 [facility] Comment on above: Performed By: #### C BC, CMP #### [address] Lymphocytes/100 leukocytes i n Blood by Automated countOrdered By: Mg Vaughn on 12-21-2023 Lymphocytes/100 WBC (Bld) 28.5 % Normal . [facility] Comment on above: Performed By: #### C BC, CMP #### [place] [address] [place] MCH [Entitic mass] by Automa sommer countOrdered By: Mg Vaughn on 12-21-2023 MCH (RBC) [Entitic mass] 27.1 pg Normal 24.7-34.3 [facility] Comment on above: Performed By: #### C BC, CMP #### [address] MCHC Auto (RBC) [Mass/Vol]Or dered By: Mg Vaughn on 12-21-2023 MCHC (RBC) [Mass/Vol] 32.3 g/dL 32.0-35.0 [facility] MCV [Entitic volume] by Auto mated countOrdered By: Mg Vaughn on 12-21-2023 MCV (RBC) [Entitic vol] 83.8 fL Normal 80-100 [facility] Comment on above: Performed By: #### C BC, CMP #### [facility] [address] [place] [address] [place] MRSA Cultureon 12-21-2023 MRSA Culture MRSA Culture Results No MRSA Isolated 2 Days Rare growth of normal respiratory nava. PERFORMED BY: [place] [address] PATHOLOGIST SCALE MECHANIC JASMEET LIN M.D. Normal [facility] Comment on above: Performed By: #### C MP, CBC, HS TROP, TSH3 wRFLX #### [facility] [address] [place] [address] [place] Neutrophils [#/volume] in Bl ood by Automated countOrdered By: Mg Vaughn on 12-21-2023 Neutrophils (Bld) [#/Vol] 4.1 10*3/uL Normal 1.8-7.7 [facility] Comment on above: Performed By: #### C BC, CMP #### [address] Nucleated erythrocytes [Pres ence] in Blood by Automated countOrdered By: Mg Vaughn on 12-21-2023 Nucleated RBC Auto Ql (Bld) 0.1 /100{WBC} 0-0.5 [facility] Platelet mean volume [Entiti c volume] in Blood by Automated countOrdered By: Mg Vaughn on 12-21-2023 Platelet mean volume (Bld) [Entitic vol] 7.2 fL Normal 6.3-10.7 [facility] Comment on above: Performed By: #### C BC, CMP #### [place] [address] [place] Platelets [#/volume] in Bloo d by Automated countOrdered By: Mg Vaughn on 12-21-2023 Platelets (Bld) [#/Vol] 334 10*3/uL Normal 150-450 [facility] Comment on above: Performed By: #### C ELIF, CMP #### [facility] [address] [place] [address] Protein [Mass/volume] in Ser um or PlasmaOrdered By: Mg Vaughn on 12-21-2023 Protein [Mass/Vol] 7.1 g/dL Normal 6.4-8.9 [facility] Comment on above: Performed By: #### C ELIF, CMP #### [facility] [address] [place] [address] Respiratory (Upper) Panel, P CRon 12-21-2023 Respiratory (Upper) Panel, PCR Adenovirus Not detected Bordetella parapertussis Not detected Chlamydia pneumoniae Not detected Coronavirus 229E Not detected Coronavirus HKU1 Not detected Coronavirus NL63 Not detected Coronavirus OC43 Not detected Influenza A Not detected Influenza B Not detected Human Metapneumovirus Not detected Mycoplasma pneumoniae Not detected Parainfluenza Virus 1 Not detected Parainfluenza Virus 2 Not detected Parainfluenza Virus 3 Not detected Parainfluenza Virus 4 Not detected Bordetella pertussis-ptxP Not detected Human Rhino/Enterovirus Detected Resp. Syncytial Virus Not detected COVID-19 Detected/Not Detected Not detected Blank Space FLUA TEST INCLUDES Influenza A tests for the following clinically FLUA TEST INCLUDES significant subtypes: FLUA TEST INCLUDES - Influenza A FLUA TEST INCLUDES - Influenza A H1 FLUA TEST INCLUDES - Influenza A H1 2008 FLUA TEST INCLUDES - Influenza A H3 Blank Space PERFORMED BY: [place] [address] PATHOLOGIST SCALE MECHANIC JASMEET LIN M.D. Normal [facility] Comment on above: Performed By: #### R TERRI PANEL UPP., BIOFIRECOVNOTDE #### [address] Respiratory pathogens DNA an d RNA panel - Nasopharynx by KRUNAL with non-probe detectionOrdered By: Mg Vaughn on 12-21-2023 Respiratory pathogens DNA and RNA panel KRUNAL+non-probe (Nph) [facility] Serum globulin measurement b y calculation (mass/volume)Ordered By: Mg Vaughn on 12-21-2023 Globulin (S) [Mass/Vol] 3.2 g/dL Normal [facility] Comment on above: Performed By: #### C BC, CMP #### [address] Serum or plasma albumin/glob ulin mass ratioOrdered By: Mg Vaughn on 12-21-2023 Albumin/Globulin [Mass ratio] 1.2 {ratio} Normal [facility] Comment on above: Performed By: #### C BC, CMP #### [facility] [address] [place] [address] Wound methicillin resistant Staphylococcus aureus (MRSA) cultureOrdered By: Denver Rasmussen on 12-21-2023 MRSA isol Org specific cx Ql (Unsp spec) [facility] XR chest 1V portableon 12-20 XR chest 1V portable [facility] [place] [address] [place] [address] XRay Report Signed Patient: Cinthia Guerrero MR#: [id number] : 1960 Acct:[id number] Age/Sex: 63 / F ADM Date: 12/20/23 Loc: Room: [address] [place] [address] Type: ADM INOo Attending Dr: Cassandra Andersen MD Copies to: DO Cassandra Wong MD Ordering Provider: Rip Celestin DO Date of Service: 12/20/23 XR/XR chest 1V portable: Shortness of Breath/Dyspnea PORTABLE AP ERECT CHEST 2100 hours CLINICAL HISTORY: Exacerbation of COPD COMPARISON: 05/13/[address] 08/13/2023 The heart is within normal limits. There is no vascular congestion. The lungs lungs are hyperinflated. Residual pleural-parenchymal change is visualized at the left apex that may be scarring. No developing consolidation is seen. There is no effusion or pneumothorax. The bony structures are osteopenic. XR/XR chest 1V portable IMPRESSION: OBSTRUCTIVE LUNG DISEASE WITH CONTINUED PLEURAL PARENCHYMAL CHANGE AT THE LEFT APEX. NO OTHER ACUTE FINDINGS Impression dictated by: Jeanette Carlin M.D.12/21/2023 7:51 AM Dictation Location: [place] [address] Transcribed By: [facility] 12/21/23 075 Dictated By: Jeanette Carlin MD 12/21/23 0748 Signed By: 12/21/23 0751 Normal [facility] Alanine aminotransferase [En zymatic activity/volume] in Serum or PlasmaOrdered By: Rip Celestin on 12-20-2023 ALT [Catalytic activity/Vol] 28 U/L Normal 7-52 [facility] Comment on above: Performed By: #### C MP, CBC, HS TROP, TSH3 wRFLX #### [facility] [address] [place] [address] [place] Albumin [Mass/volume] in Ser um or Plasma by Bromocresol green (BCG) dye binding methoOrdered By: Rip Celestin on 12-20-2023 Albumin BCG dye [Mass/Vol] 4.2 g/dL 3.5-5.7 [facility] Alkaline phosphatase [Enzyma tic activity/volume] in Serum or PlasmaOrdered By: Rip Celestin on 12-20-2023 ALP [Catalytic activity/Vol] 77 U/L Normal 34-104 [facility] Comment on above: Performed By: #### C MP, CBC, HS TROP, TSH3 wRFLX #### [facility] [address] [place] [id number] [place] Aspartate aminotransferase [ Enzymatic activity/volume] in Serum or PlasmaOrdered By: Rip Celestin on 12-20-2023 AST [Catalytic activity/Vol] 20 U/L Normal 13-39 [facility] Comment on above: Performed By: #### C MP, CBC, HS TROP, TSH3 wRFLX #### [address] Automated basophil %Ordered By: Rip Celestin on 12-20-2023 Basophils/100 WBC (Bld) 0.3 % Normal . [facility] Comment on above: Performed By: #### C MP, CBC, HS TROP, TSH3 wRFLX #### [address] Automated basophil countOrde red By: Rip Celestin on 12-20-2023 Basophils (Bld) [#/Vol] 0.0 10*3/uL Normal 0.0-0.2 [facility] Comment on above: Result Comment: PERF ORMED BY: [place] [address] PATHOLOGIST SCALE MECHANIC JASMEET LIN M.D. Performed By: #### C MP, CBC, HS TROP, TSH3 wRFLX #### [address] Automated blood monocyte cou ntOrdered By: Rip Celestin on 12-20-2023 Monocytes (Bld) [#/Vol] 0.5 10*3/uL Normal 0.0-0.8 [facility] Comment on above: Performed By: #### C MP, CBC, HS TROP, TSH3 wRFLX #### [address] Automated eosinophil %Ordere d By: Rip Celestin on 12-20-2023 Eosinophils/100 WBC (Bld) 0.1 % Normal . [facility] Comment on above: Performed By: #### C MP, CBC, HS TROP, TSH3 wRFLX #### [address] Automated eosinophil countOr dered By: Rip Celestin on 12-20-2023 Eosinophils (Bld) [#/Vol] 0.0 10*3/uL Normal 0.0-0.45 [facility] Comment on above: Performed By: #### C MP, CBC, HS TROP, TSH3 wRFLX #### [facility] [address] [place] [address] Automated monocyte %Ordered By: Rip Celestin on 12-20-2023 Monocytes/100 WBC (Bld) 5.9 % Normal . [facility] Comment on above: Performed By: #### C MP, CBC, HS TROP, TSH3 wRFLX #### [facility] [address] [place] [address] Automated neutrophil %Ordere d By: Rip Celestin on 12-20-2023 Neutrophils/100 WBC (Bld) 83.9 % Normal . [facility] Comment on above: Performed By: #### C MP, CBC, HS TROP, TSH3 wRFLX #### [address] BNP ser/plasOrdered By: [place] Celestin on 12-20-2023 Natriuretic peptide B (Bld) [Mass/Vol] 44.0 pg/mL Normal 5-100 [facility] Comment on above: Result Comment: PERF ORMED BY: [place] [address] PATHOLOGIST SCALE MECHANIC JASMEET LIN M.D. Performed By: #### C MP, CBC, HS TROP, TSH3 wRFLX #### [address] Bilirubin.total [Mass/volume ] in Serum or PlasmaOrdered By: Rip Celestin on 12-20-2023 Bilirubin [Mass/Vol] 0.3 mg/dL Normal 0.3-1.0 [facility] Comment on above: Performed By: #### C MP, CBC, HS TROP, TSH3 wRFLX #### [facility] [address] [place] [address] Calcium [Mass/volume] in Ser um or PlasmaOrdered By: Rip Celestin on 12-20-2023 Calcium [Mass/Vol] 9.8 mg/dL Normal 8.6-10.3 [facility] Comment on above: Performed By: #### C MP, CBC, HS TROP, TSH3 wRFLX #### [facility] [address] Carbon dioxide, total [Moles /volume] in Serum or PlasmaOrdered By: Rip Celestin on 12-20-2023 CO2 [Moles/Vol] mmol/L High 21.0-31.0 [facility] Comment on above: Critical valueresult calledat 2101 on 12/20/23 Result Comment: Crit ical value result called at 2101 on 12/20/23 Performed By: #### C MP, CBC, HS TROP, TSH3 wRFLX #### [address] Chloride [Moles/volume] in S karmen or PlasmaOrdered By: Rip Celestin on 12-20-2023 Chloride [Moles/Vol] 86 mmol/L Low 98-107 [facility] Comment on above: Performed By: #### C MP, CBC, HS TROP, TSH3 wRFLX #### [address] Complete Blood Count Auto Di ffon 12-20-2023 Mean Corpuscular HGB Conc 32.6 g/dL Normal 32.0-35.0 [facility] Comment on above: Performed By: #### C MP, CBC, HS TROP, TSH3 wRFLX #### [address] Monocytes/100 WBC (Bld) 16.32 % Normal 0.00-20.00 [facility] Comment on above: Performed By: #### C MP, CBC, HS TROP, TSH3 wRFLX #### [address] NRBC% 0.1 /100{WBC} Normal 0-0.5 [facility] Comment on above: Performed By: #### C MP, CBC, HS TROP, TSH3 wRFLX #### [address] Comprehensive Metabolic Pane shelby 12-20-2023 Albumin [Mass/Vol] 4.2 g/dL Normal 3.5-5.7 [facility] Comment on above: Performed By: #### C MP, CBC, HS TROP, TSH3 wRFLX #### [address] Anion gap [Moles/Vol] Not performed Normal 6.0-15.0 [facility] Comment on above: Performed By: #### C MP, CBC, HS TROP, TSH3 wRFLX #### [address] Creatinine Clr Calc Pharmacy 94.74 Normal [facility] Comment on above: Result Comment: PERF ORMED BY: [place] [address] PATHOLOGIST SCALE MECHANIC JASMEET LIN M.D. Performed By: #### C MP, CBC, HS TROP, TSH3 wRFLX #### [address] GFR/1.73 sq M.predicted MDRD (S/P/Bld) [Vol rate/Area] mL/min/{1.73_m2} Normal [facility] Comment on above: Performed By: #### C MP, CBC, HS TROP, TSH3 wRFLX #### [address] Creatine kinase [Enzymatic a ctivity/volume] in Serum or PlasmaOrdered By: Rip Celestin on 12-20-2023 CK [Catalytic activity/Vol] 24 U/L Low 30-223 [facility] Comment on above: Performed By: #### C MP, CBC, HS TROP, TSH3 wRFLX #### [address] Creatinine [Mass/volume] in Serum or PlasmaOrdered By: Rip Celestin on 12-20-2023 Creatinine [Mass/Vol] 0.41 mg/dL Low 0.60-1.20 [facility] Comment on above: Performed By: #### C MP, CBC, HS TROP, TSH3 wRFLX #### [address] ECG 12 lead ECGon 12-20-2023 ECG 12 lead ECG [facility] [place] [address] [place] [id number] Electrocardiograph Report Signed Patient: Cinthia Guerrero MR#: [id number] : 1960 Acct:[id number] Age/Sex: 63 / F ADM Date: 12/20/23 Loc: Room: [address] [place] [address] Type: ADM INOo Attending Dr: Mg Vaughn MD Ordering Provider: Rip Celestin DO Date of Service: 12/20/2312/05/1946 ECG/ECG 12 lead ECG: Shortness of Breath/Dyspnea Copies to: Test Reason : Blood Pressure : 143/79 mmHG Vent. Rate : 121 BPM Atrial Rate : 121 BPM P-R Int : 176 ms QRS Dur : 70 ms QT Int : 286 ms P-R-T Axes : 93 88 88 degrees QTcB Int : 406 ms Sinus tachycardia Minimal voltage criteria for LVH, may be normal variant Cannot rule out Anterior infarct (cited on or before 13-May-2023) Abnormal ECG When compared with ECG of 13-May-2023 16:50, premature atrial complexes are no longer present Confirmed by RIP CELESTIN DO ([id number]) on 12/20/2023 11:22:16 PM Referred By: Electronically Signed By: RIP CELESTIN DO Transcribed By: MUS Signed By Rip Celestin DO 2 Normal [facility] Erythrocyte distribution wid th [Ratio] by Automated countOrdered By: Rip Celestin on 12-20-2023 Erythrocyte distribution width (RBC) [Ratio] 14.1 % Normal 11.9-15.3 [facility] Comment on above: Performed By: #### C MP, CBC, HS TROP, TSH3 wRFLX #### [place] [id number] [facility] Erythrocytes [#/volume] in B lood by Automated countOrdered By: Rip Celestin on 12-20-2023 RBC (Bld) [#/Vol] 5.37 10*6/uL High 3.60-5.00 [facility] Comment on above: Performed By: #### C MP, CBC, HS TROP, TSH3 wRFLX #### [facility] [address] [place] [address] [place] Glucose [Mass/volume] in Ser um or PlasmaOrdered By: Rip Celestin on 12-20-2023 Glucose [Mass/Vol] 103 mg/dL High 70-100 [facility] Comment on above: ADA recommended refe rence rangeRandom Glucose Reference Range is dependent on time and content of last meal. Glucose of more than 200 mg/dL in a nonstressed, ambulatory subject supports the diagnosis of Diabetes Mellitus. Result Comment: [place] om Glucose Reference Range is dependent on time and content of last meal. Glucose of more than 200 mg/dL in a nonstressed, ambulatory subject supports the diagnosis of Diabetes Mellitus. ADA recommended reference range Performed By: #### C MP, CBC, HS TROP, TSH3 wRFLX #### [facility] [address] [place] [address] Hematocrit [Volume Fraction] of Blood by Automated countOrdered By: Rip Celestin on 12-20-2023 Hematocrit (Bld) [Volume fraction] 44.5 % Normal 34.0-46.4 [facility] Comment on above: Performed By: #### C MP, CBC, HS TROP, TSH3 wRFLX #### [facility] [address] [place] [address] Hemoglobin [Mass/volume] in BloodOrdered By: Rip Celestin on 12-20-2023 Hemoglobin (Bld) [Mass/Vol] 14.5 g/dL Normal 11.8-15.4 [facility] Comment on above: Performed By: #### C MP, CBC, HS TROP, TSH3 wRFLX #### [facility] [address] [place] [id number] [place] Leukocytes [#/volume] correc sommer for nucleated erythrocytes in Blood by Automated counOrdered By: Rip Celestin on 12-20-2023 WBC corrected for nucl RBC Auto (Bld) [#/Vol] 8.4 10*3/uL 3.8-11.6 [facility] Leukocytes [#/volume] in Blo od by Automated countOrdered By: Rip Celestin on 12-20-2023 WBC (Bld) [#/Vol] 8.4 10*3/uL Normal 3.8-11.6 [facility] Comment on above: Performed By: #### C MP, CBC, HS TROP, TSH3 wRFLX #### [address] Lymphocytes [#/volume] in Bl ood by Automated countOrdered By: Rip Celestin on 12-20-2023 Lymphocytes (Bld) [#/Vol] 0.8 10*3/uL Low 1.00-4.8 [facility] Comment on above: Performed By: #### C MP, CBC, HS TROP, TSH3 wRFLX #### [address] Lymphocytes/100 leukocytes i n Blood by Automated countOrdered By: Rip Celestin on 12-20-2023 Lymphocytes/100 WBC (Bld) 9.8 % Normal . [facility] Comment on above: Performed By: #### C MP, CBC, HS TROP, TSH3 wRFLX #### [address] MCH [Entitic mass] by Automa sommer countOrdered By: Rip Celestin on 12-20-2023 MCH (RBC) [Entitic mass] 27.0 pg Normal 24.7-34.3 [facility] Comment on above: Performed By: #### C MP, CBC, HS TROP, TSH3 wRFLX #### [address] MCHC Auto (RBC) [Mass/Vol]Or dered By: Rip Celestin on 12-20-2023 MCHC (RBC) [Mass/Vol] 32.6 g/dL 32.0-35.0 [facility] MCV [Entitic volume] by Auto mated countOrdered By: Rip Celestin on 12-20-2023 MCV (RBC) [Entitic vol] 82.9 fL Normal 80-100 [facility] Comment on above: Performed By: #### C MP, CBC, HS TROP, TSH3 wRFLX #### [facility] [address] [place] [id number] [facility] Monocyte distribution width [Entitic volume] in Blood by AutomatedOrdered By: Rip Celestin on 12-20-2023 Monocyte distribution width Auto (Bld) [Entitic vol] 16.32 % 0.00-20.00 [facility] Neutrophils [#/volume] in Bl ood by Automated countOrdered By: Rip Celestin on 12-20-2023 Neutrophils (Bld) [#/Vol] 7.0 10*3/uL Normal 1.8-7.7 [facility] Comment on above: Performed By: #### C MP, CBC, HS TROP, TSH3 wRFLX #### [facility] [address] [place] [address] No Panel InformationOrdered By: Rip Celestin on 12-20-2023 Blood Gas Critical Value See comment [facility] Comment on above: Critical Value greenwood d on: 12/20/2023 at 20:23 Blood Gas Sample Site Venous Fir [facility] FiO2 28 % [facility] Oxygen Delivery Device Nasal cannula [facility] Venous Blood Base Excess 16.9 mmol/L High -3.0-3.0 [facility] Venous Blood Oxygen Content 8.2 mmol/L 6.6-9.7 [facility] Venous Blood Oxygen Saturation 83.6 % High 73.0-76.0 [facility] Venous Blood Partial Pressure CO2 84.8 mm[Hg] High 38.0-50.0 [facility] Venous Blood Partial Pressure O2 46.5 mm[Hg] High 35.0-45.0 [facility] Venous Blood pH 7.37 7.32-7.43 [facility] Estimated GFR (CKD-EPI) > 60.0 mL/Min [facility] Creatinine Clearance (Chem 94.74 [facility] Nucleated erythrocytes [Pres ence] in Blood by Automated countOrdered By: Rip Celestin on 12-20-2023 Nucleated RBC Auto Ql (Bld) 0.1 /100{WBC} 0-0.5 [facility] Platelet mean volume [Entiti c volume] in Blood by Automated countOrdered By: Rip Celestin on 12-20-2023 Platelet mean volume (Bld) [Entitic vol] 7.0 fL Normal 6.3-10.7 [facility] Comment on above: Performed By: #### C MP, CBC, HS TROP, TSH3 wRFLX #### [address] Platelets [#/volume] in Bloo d by Automated countOrdered By: Rip Celestin on 12-20-2023 Platelets (Bld) [#/Vol] 346 10*3/uL Normal 150-450 [facility] Comment on above: Performed By: #### C MP, CBC, HS TROP, TSH3 wRFLX #### [address] Potassium [Moles/volume] in Serum or PlasmaOrdered By: Rip Celestin on 12-20-2023 Potassium [Moles/Vol] 4.4 mmol/L Normal 3.5-5.1 [facility] Comment on above: Performed By: #### C MP, CBC, HS TROP, TSH3 wRFLX #### [address] Protein [Mass/volume] in Ser um or PlasmaOrdered By: Rip Celestin on 12-20-2023 Protein [Mass/Vol] 7.6 g/dL Normal 6.4-8.9 [facility] Comment on above: Performed By: #### C MP, CBC, HS TROP, TSH3 wRFLX #### [address] Serum globulin measurement b y calculation (mass/volume)Ordered By: Rip Celestin on 12-20-2023 Globulin (S) [Mass/Vol] 3.4 g/dL Normal [facility] Comment on above: Performed By: #### C MP, CBC, HS TROP, TSH3 wRFLX #### [address] Serum or plasma albumin/glob ulin mass ratioOrdered By: Rip Celestin on 12-20-2023 Albumin/Globulin [Mass ratio] 1.2 {ratio} Normal [facility] Comment on above: Performed By: #### C MP, CBC, HS TROP, TSH3 wRFLX #### [facility] [address] [place] [address] Serum or plasma anion gap de terminationOrdered By: Rip Celestin on 12-20-2023 Anion gap [Moles/Vol] TNP [facility] Comment on above: Test not performed Sodium [Moles/volume] in Ser um or PlasmaOrdered By: Rip Celestin on 12-20-2023 Sodium [Moles/Vol] 136 mmol/L Normal 136-145 [facility] Comment on above: Performed By: #### C MP, CBC, HS TROP, TSH3 wRFLX #### [address] Theophyllineon 12-20-2023 Theophylline 3.6 ug/mL Low 10.0-20.0 [facility] Comment on above: Order Comment: Date of last dose?: 20231220 Time of last dose?: 899 Result Comment: Last dose: 12/20/23-899 PERFORMED BY: [place] [address] PATHOLOGIST SCALE MECHANIC JASMEET LIN M.D. Performed By: #### C MP, CBC, HS TROP, TSH3 wRFLX #### [address] Theophylline [Mass/volume] i n Serum or PlasmaOrdered By: Rip Celestin on 12-20-2023 Theophylline [Mass/Vol] 3.6 ug/mL Low 10.0-20.0 [facility] Comment on above: Last dose: 12/20/23- 899 Troponin I High Sensitivityo n 12-20-2023 Troponin I High Sensitivity 4.3 pg/mL Normal 0.0-15.0 [facility] Comment on above: Result Comment: PERF ORMED BY: [place] [address] PATHOLOGIST SCALE MECHANIC JASMEET LIN M.D. Performed By: #### C MP, CBC, HS TROP, TSH3 wRFLX #### [address] Troponin I.cardiac [Mass/vol ume] in Serum or Plasma by Detection limit <= 0.01 ng/Ordered By: Rip Celestin on 12-20-2023 Troponin I.cardiac DL <= 0.01 ng/mL [Mass/Vol] 4.3 pg/mL 0.0-15.0 [facility] Urea nitrogen [Mass/volume] in Serum or PlasmaOrdered By: Rip Celestin on 12-20-2023 Urea nitrogen [Mass/Vol] 11 mg/dL Normal 7-25 [facility] Comment on above: Performed By: #### C MP, CBC, HS TROP, TSH3 wRFLX #### [address] Venous Blood GasOrdered By: Rip Celestin on 12-20-2023 CO2 [Moles/Vol] 50.2 mmol/L High 24.0-29.0 [facility] Comment on above: Performed By: #### C MP, CBC, HS TROP, TSH3 wRFLX #### [address] HCO3 (Bld) [Moles/Vol] 47.6 mmol/L High 23.0-29.0 [facility] Comment on above: Performed By: #### C MP, CBC, HS TROP, TSH3 wRFLX #### [address] Venous Blood Gason Oxygen Device Nasal Cannula Normal [facility] Comment on above: Performed By: #### C MP, CBC, HS TROP, TSH3 wRFLX #### [address] Respiratory Critical Normal [facility] Comment on above: Result Comment: Crit ical Value called on: 12/20/2023 at 20:23 PERFORMED BY: [place] [address] PATHOLOGIST SCALE MECHANIC JASMEET LIN M.D. Performed By: #### C MP, CBC, HS TROP, TSH3 wRFLX #### [address] VBG Base Excess 16.9 mmol/L High -3.0-3.0 [facility] Comment on above: Performed By: #### C MP, CBC, HS TROP, TSH3 wRFLX #### [address] VBG Draw Site Venous Normal [facility] Comment on above: Performed By: #### C MP, CBC, HS TROP, TSH3 wRFLX #### [address] VBG Frac Inspired O2 28 % Normal [facility] Comment on above: Performed By: #### C MP, CBC, HS TROP, TSH3 wRFLX #### [address] VBG O2 Content 8.2 mmol/L Normal 6.6-9.7 [facility] Comment on above: Performed By: #### C MP, CBC, HS TROP, TSH3 wRFLX #### [address] VBG Oxygen Saturation 83.6 % High 73.0-76.0 [facility] Comment on above: Performed By: #### C MP, CBC, HS TROP, TSH3 wRFLX #### [address] VBG PCO2 84.8 mm[Hg] Off scale high 38.0-50.0 [facility] Comment on above: Performed By: #### C MP, CBC, HS TROP, TSH3 wRFLX #### [address] VBG PH Venous PH 7.37 Normal 7.32-7.43 [facility] Comment on above: Performed By: #### C MP, CBC, HS TROP, TSH3 wRFLX #### [address] VBG PO2 46.5 mm[Hg] High 35.0-45.0 [facility] Comment on above: Performed By: #### C MP, CBC, HS TROP, TSH3 wRFLX #### [facility] [address] [place] [id number] [facility] ANES POSTPROC EVALon 024 ANES POSTPROC EVAL HNO ID: [id number] Author: DORON FLORENTINO MD Service: ? Author Type: Anesthesiologist Type: Anesthesia Postprocedure Evaluation Filed: 11/19/2023 07:55 Note Text: POST ANESTHESIA EVALUATION NOTE : 1960 Procedure Summary Date: 11/18/23 Room / Location: [address] [facility] Anesthesia Start: 153 Anesthesia Stop: 174 Procedure: BIOPSY OR EXCISION [...] DATE: November 19, 2023 TIME: 7:55 AM CSN: [id number] Normal [employer] [facility] 11-19-2023 CNPN Telephone (HNQ) CINTHIA GUERRERO ([id number]) 1960 F Date Time Provider Department 11/19/23 TEO CRAFT HNQ During your visit today, we recorded the following information about you: Ananya Acuna 11/19/2023 1:51 PM Signed Person Calling:Omaira Reason for Call: requesting a work excuse for her daughter Kendal Ruiz fir 11/17 AND 11/18. Pt Phone #: [phone] Pharmacy Name and # : Pt last [...] Encounter Status:Closed by ANANYA ACUNA on 11/19/23 [facility] ANES PRE-OPon 11-18-2023 ANES PRE-OP HNO ID: [id number] Author: DORON FLORENTINO MD Service: ? Author [...] November 18, 2023 TIME: 3:43 PM CSN: [id number] Normal [facility] ECG COMPLETEon 11-18-2023 Atrial Rate [address] [facility] Calculated [address] 94 degrees [facility] Calculated [address] 84 degrees [facility] Calculated T [address] 88 degrees [facility] P-R Interval [address] [facility] QRS Duration [address] [facility] QT Interval [address] [facility] QTC Calculation (Bazett) [address] [facility] Ventricular Rate 115 BPM [facility] SINUS TACHYCARDIA RIGHT ATRIAL ENLARGEMENT MINIMAL VOLTAGE CRITERIA FOR LVH, MAY BE NORMAL VARIANT BORDERLINE ECG NO PREVIOUS ECGS AVAILABLE Confirmed by MD BLAND GREGORY () on 11/18/2023 7:35:32 AM [facility] NAME : CINTHIA GUERRERO PID : [id number] : 1960 Gender : Female Race : ORD : [id number] Procedure Date : Nov 17 2023 14:38:04 Edit Date : Nov 18 2023 07:35:34 Diagnosis: SINUS TACHYCARDIA RIGHT ATRIAL ENLARGEMENT MINIMAL VOLTAGE CRITERIA FOR LVH, MAY BE NORMAL VARIANT BORDERLINE ECG NO PREVIOUS ECGS AVAILABLE Confirmed by MD BLAND GREGORY () on 11/18/2023 7:35:32 AM Test Reason : HCS Location : 10 : [facility]/ Overread By : MD BLAND GREGORY Edited By : MD BLAND GREGORY Referred By : TEO CRAFT Acquired by : PERLA JUNIOR [facility] OPERATIVE NOon 11-18-2023 OPERATIVE NO HNO ID: [id number] Author: TEO CRAFT MD Service: Otolaryngology Author Type: Physician Type: Operative Report Filed: 11/23/2023 12:14 Note Text: [facility] [place] [phone] or ([phone]) CC-CARE C O N F I D E N T I A L I N F O R M A T I O N [facility] DOCUMENT OPERATIVE REPORT Otolaryngology Head and Neck Surgery Name: CINTHIA Guerrero [facility] #: [id number] Date: 11/18/2023 Date of : 1960 Pre [...] Teo Craft MD Brandon Prendes, MD Normal [facility] SURGICAL PATHOLOGYon 024 CASE REPORT Normal [facility] Comment on above: Order Comment: Speci men Type: TISSUE SPECIMENOrdering Facility: [facility] Address: [address] [place] [address] Result Comment: Surg ica Pathology Report Case: [id number] Authorizing Provider: Teo Craft MD Collected: 11/18/2023 04:25 PM Ordering Location: Admitting Received: 11/18/2023 05:12 PM Pathologist: tSephane Elmore MD, PhD Specimens: A) - Lymph Node, Biopsy, Left posterior supraclavicular lymph node B) - Lymph Node, Biopsy, Left supraclavicular external jugular node Performed By: #### S ####[facility] LABCLIA [id number] [id number] [address] STATES OF [facility] CLINICAL HISTORY Normal [facility] Comment on above: Order Comment: Speci men Type: TISSUE SPECIMENOrdering Facility: [facility] Address: [address] [place] [address] Result Comment: Pre- op diagnosis: Non-small cell cancer of left lung (HCC) [C34.92] Lymphadenopathy [R59.1] Performed By: #### S ####[facility] LABCLIA [id number] [address] LABORATORYIA [id number] [address] DIAGNOSIS COMMENT Normal [facility] Comment on above: Order Comment: Speci men Type: TISSUE SPECIMENOrdering Facility: [facility] Address: [address] [place] [address] Result Comment: The morphologic findings described below show benign lymph nodes with follicular hyperplasia. Granulomatous diseases not identified. GMS stains are negative for microorganisms. There is no evidence of a lymphoproliferative disorder, metastatic carcinoma or other malignancy. Laboratory Developed Test (LDT) Disclaimer: Performance characteristics of immunohistochemical, immunofluorescent and chromogenic in-situ hybridization tests have been determined by the performing laboratory within [facility]???s Adarsh Cui Pathology and Laboratory Medicine Department ([facility], [facility], [facility], [facility], [facility], [facility], or [facility]) in a manner consistent with CLIA requirements. One or more of these tests have not been cleared or approved by the FDA. RT[facility] is regulated under CLIA as qualified to perform high-complexity testing. These tests are used for clinical purposes. They should not be regarded as investigational or for research. Positive and negative controls stain appropriately. Performed By: #### S ####[facility] LABCLIA [id number] [id number] [address] FINAL DIAGNOSIS Normal [facility] Comment on above: Order Comment: Speci men Type: TISSUE SPECIMENOrdering Facility: [facility] Address: [address] [place] [address] Result Comment: Lymp h nodes, left posterior supraclavicular and left supraclavicular external jugular, excisional biopsies (A-B): - Benign lymph nodes with follicular hyperplasia. - GMS stains negative for microorganisms. - No evidence of malignancy. - See comment. [facility] 11/27/2023 Performed By: #### S ####[facility] LABCLIA [id number] [id number] [address] [place] FINAL PERFORMING LAB Normal [facility] Comment on above: Order Comment: Speci men Type: TISSUE SPECIMENOrdering Facility: [facility] Address: [address] [place] [address] Result Comment: Diag nostic interpretation performed at [facility], [address] [place] [address] CLIA# [id number] Global Account Executive: Axel Romano M.D. Performed By: #### S ####[facility] LABCLIA [id number] [address] LABORATORYCLIA [id number] [address] GROSS DESCRIPTION Normal [facility] Comment on above: Order Comment: Speci men Type: TISSUE SPECIMENOrdering Facility: [facility] Address: [address] [place] [address] Result Comment: A. L ymph Node, Biopsy [...] 2023 12:08 PM Gross examination performed at [facility], [address] [place] [address] Performed By: #### S ####[facility] LABCLIA [id number] [address] LABORATORYCLIA [id number] [place] [address] [place] MICROSCOPIC DESCRIPTION The histologic sections of part [...] D1 stain shows no lymphoid staining. Normal [facility] Comment on above: Order Comment: Speci men Type: TISSUE SPECIMENOrdering Facility: [facility] Address: [address] [place] [address] Performed By: #### S ####[facility] LABCLIA [id number] [address] STATES OF [facility] LABORATORYCLIA [id number] [address] [place] Basic metabolic 2000 panelon 11-17-2023 Anion gap [Moles/Vol] 8 mmol/L 8 - 15 mmol/L [facility] Calcium [Mass/Vol] 9.7 mg/dL 8.5 - 10. 2 mg/dL [facility] Chloride [Moles/Vol] 95 mmol/L Low 98 - 10 7 mmol/L [facility] CO2 [Moles/Vol] 36 mmol/L High 22 - 30 mmol/L [facility] Creatinine [Mass/Vol] 0.37 mg/dL Low 0.58 - 0.96 mg/dL [facility] GFR/1.73 sq M.predicted among non-blacks MDRD (S/P/Bld) [Vol rate/Area] 114 mL/min/{1.73_m2} - PINF [facility] Comment on above: Estimated Glomerular Filtration Rate [...] 200 mg/dL High 74 - 99 mg/dL [facility] Comment on above: The [place] Diabete s Association (ADA) provides guidance for [...] Standards of Medical Care in Diabetes 2016, [place] Diabetes Association. Diabetes Care. 2016.39(Suppl 1). Interpretation and review of laboratory results Abnormal [facility] Potassium [Moles/Vol] 3.9 mmol/L 3.7 - 5.1 mmol/L [facility] Sodium [Moles/Vol] 139 mmol/L 136 - 144 mmol/L [facility] Urea nitrogen [Mass/Vol] 8 mg/dL 7 - 21 mg/dL [facility] Anion gap [Moles/Vol] 8 mmol/L Normal 8-15 [facility] Comment on above: Order Comment: Renuka lacey Type: BLOOD SPECIMEN [facility] Address: [address] [place] [address] Performed By: #### 2 4321-2 #### [facility] CLIA [id number] [address] [place] [address] [place] Calcium [Mass/Vol] 9.7 mg/dL Normal 8.5-10.2 [facility] Comment on above: Order Comment: Renuka lacey Type: BLOOD SPECIMEN [facility]: [facility] Address: [address] [place] [address] Performed By: #### 2 4321-2 #### [facility] CLIA [id number] [address] [place] [address] [place] Chloride [Moles/Vol] 95 mmol/L Low 98-107 [facility] Comment on above: Order Comment: Renuka lacey Type: BLOOD SPECIMEN [facility] Address: [address] [place] [address] Performed By: #### 2 4321-2 #### [facility] CLIA [id number] [address] OF [place] CO2 [Moles/Vol] 36 mmol/L High 22-30 [facility] Comment on above: Order Comment: Renuka lacey Type: BLOOD SPECIMEN [facility] Address: [address] [place] [address] Performed By: #### 2 4321-2 #### [facility] CLIA [id number] [address] [place] Creatinine [Mass/Vol] 0.37 mg/dL Low 0.58-0.96 [facility] Comment on above: Order Comment: Renuka lacey Type: BLOOD SPECIMEN [facility] Address: [address] [place] [address] Performed By: #### 2 4321-2 #### [facility] CLIA [id number] [address] Creatinine and Glomerular filtration rate.predicted panel (S/P/Bld) 114 mL/min/1.73m??? Normal >=60 [facility] Comment on above: Order Comment: Renuka lacey Type: BLOOD SPECIMEN [facility] Address: [address] [place] [address] Result Comment: Angelique mated Glomerular Filtration Rate [...] GFR. Performed By: #### 2 4321-2 #### [facility] CLIA [id number] [address] [place] Glucose [Mass/Vol] 200 mg/dL High 74-99 [facility] Comment on above: Order Comment: Renuka lacey Type: BLOOD SPECIMEN [facility] Address: [address] [place] [address] Result Comment: The [place] Diabetes Association (ADA) provides guidance for cutoff [...] Standards of Medical Care in Diabetes 2016, [place] Diabetes Association. Diabetes Care. 2016.39(Suppl 1). Performed By: #### 2 4321-2 #### [facility] CLIA [id number] [address] [place] [address] [place] Potassium [Moles/Vol] 3.9 mmol/L Normal 3.7-5.1 [facility] Comment on above: Order Comment: Renuka lacey Type: BLOOD SPECIMEN [facility] Address: [address] [place] [address] Performed By: #### 2 4321-2 #### [facility] CLIA [id number] [address] STATES [facility] Sodium [Moles/Vol] 139 mmol/L Normal 136-144 [facility] Comment on above: Order Comment: Renuka lacey Type: BLOOD SPECIMEN [facility] Address: [address] [place] [address] Performed By: #### 2 4321-2 #### [facility] CLIA [id number] [address] STATES [facility] Urea nitrogen [Mass/Vol] 8 mg/dL Normal 7-21 [facility] Comment on above: Order Comment: Renuka lacey Type: BLOOD SPECIMEN [facility] Address: [address] [place] [address] Performed By: #### 2 4321-2 #### [facility] CLIA [id number] [address] [place] [address] [place] CBC W Auto Differential pane l (Bld)on 11-17-2023 Basophils (Bld) [#/Vol] NINF [facility] Basophils/100 WBC (Bld) 0.2 % [facility] Differential cell count method Nom (Bld) Auto [facility] Eosinophils (Bld) [#/Vol] [facility] Eosinophils/100 WBC (Bld) 0.4 % [facility] Erythrocyte distribution width (RBC) [Ratio] 12.8 % 11.5 - 15.0 % [facility] Hematocrit (Bld) [Volume fraction] 40.3 % 36.0 - 46.0 % [facility] Hemoglobin (Bld) [Mass/Vol] 12.4 g/dL 11.5 - 15.5 g/dL [facility] Immature granulocytes (Bld) [#/Vol] [facility] Immature granulocytes/100 WBC (Bld) 0.2 % [facility] Interpretation and review of laboratory results Abnormal [facility] Lymphocytes (Bld) [#/Vol] 0.31 10*3/uL Low [facility] Lymphocytes/100 WBC (Bld) 6.0 % [facility] MCH (RBC) [Entitic mass] 26.4 pg 26.0 - 34.[address] [facility] MCHC (RBC) [Mass/Vol] 30.8 g/dL 30.5 - 36.0 g/dL [facility] MCV (RBC) [Entitic vol] 85.9 fL 80.0 - 100.[address] [facility] Monocytes (Bld) [#/Vol] 0.06 10*3/uL [facility] Monocytes/100 WBC (Bld) 1.2 % [facility] Neutrophils (Bld) [#/Vol] 4.76 10*3/uL [facility] Neutrophils/100 WBC (Bld) 92.0 % [facility] Nucleated RBC (Bld) [#/Vol] [facility] Nucleated RBC/100 WBC (Bld) [Ratio] 0.0 % /[address] [facility] Platelet mean volume (Bld) [Entitic vol] 9.0 fL 9.0 - 12.[address] [facility] Platelets (Bld) [#/Vol] 286 10*3/uL [facility] RBC (Bld) [#/Vol] 4.69 10*6/uL 3.90 - 5.2 0 m/uL [facility] WBC (Bld) [#/Vol] 5.17 10*3/uL [facility] Basophils (Bld) [#/Vol] 10*3/uL Normal <0.11 [facility] Comment on above: Order Comment: Speci men Type: BLOOD SPECIMEN [facility] Address: [address] [place] [address] Performed By: #### 5 7021-8 #### [facility] CLIA [id number] [address] [place] Basophils/100 WBC (Bld) 0.2 % Normal [facility] Comment on above: Order Comment: Speci men Type: BLOOD SPECIMEN [facility] Address: [address] [place] [address] Performed By: #### 5 7021-8 #### [facility] CLIA [id number] [address] Differential cell count method Nom (Bld) Auto [facility] Comment on above: Order Comment: Speci men Type: BLOOD SPECIMEN [facility] Address: [address] [place] [address] Performed By: #### 5 7021-8 #### [facility] CLIA [id number] [address] [place] [address] [place] Eosinophils (Bld) [#/Vol] 10*3/uL Normal <0.46 [facility] Comment on above: Order Comment: Speci men Type: BLOOD SPECIMEN [facility] Address: [address] [place] [address] Performed By: #### 5 7021-8 #### [facility] CLIA [id number] [address] Eosinophils/100 WBC (Bld) 0.4 % Normal [facility] Comment on above: Order Comment: Speci men Type: BLOOD SPECIMEN [facility] Address: [address] [place] [address] Performed By: #### 5 7021-8 #### [facility] CLIA [id number] [address] [place] Erythrocyte distribution width (RBC) [Ratio] 12.8 % Normal 11.5-15.0 [facility] Comment on above: Order Comment: Speci men Type: BLOOD SPECIMEN [facility] Address: [address] [place] [address] Performed By: #### 5 7021-8 #### [facility] CLIA [id number] [address] Hematocrit (Bld) [Volume fraction] 40.3 % Normal 36.0-46.0 [facility] Comment on above: Order Comment: Speci men Type: BLOOD SPECIMEN [facility] Address: [address] [place] [address] Performed By: #### 5 7021-8 #### [facility] CLIA [id number] [address] OF [place] Hemoglobin (Bld) [Mass/Vol] 12.4 g/dL Normal 11.5-15.5 [facility] Comment on above: Order Comment: Speci men Type: BLOOD SPECIMEN [facility] Address: [address] [place] [address] Performed By: #### 5 7021-8 #### [facility] CLIA [id number] [address] [place] Immature granulocytes (Bld) [#/Vol] 10*3/uL Normal <0.10 [facility] Comment on above: Order Comment: Speci men Type: BLOOD SPECIMEN [facility] Address: [address] [place] [address] Performed By: #### 5 7021-8 #### [facility] CLIA [id number] [address] Immature granulocytes/100 WBC (Bld) 0.2 % Normal [facility] Comment on above: Order Comment: Speci men Type: BLOOD SPECIMEN [facility] Address: [address] [place] [address] Performed By: #### 5 7021-8 #### [facility] CLIA [id number] [address] OF [place] Lymphocytes (Bld) [#/Vol] 0.31 10*3/uL Low 1.00-4.00 [facility] Comment on above: Order Comment: Speci men Type: BLOOD SPECIMEN [facility]: [facility] Address: [address] [place] [address] Performed By: #### 5 7021-8 #### [facility] CLIA [id number] [address] Lymphocytes/100 WBC (Bld) 6.0 % Normal [facility] Comment on above: Order Comment: Speci men Type: BLOOD SPECIMEN [facility] Address: [address] [place] [address] Performed By: #### 5 7021-8 #### [facility] CLIA [id number] [address] MCH (RBC) [Entitic mass] 26.4 pg Normal 26.0-34.0 [facility] Comment on above: Order Comment: Speci men Type: BLOOD SPECIMEN [facility] Address: [address] [place] [address] Performed By: #### 5 7021-8 #### [facility] CLIA [id number] [address] MCHC (RBC) [Mass/Vol] 30.8 g/dL Normal 30.5-36.0 [facility] Comment on above: Order Comment: Speci men Type: BLOOD SPECIMEN [facility] Address: [address] [place] [address] Performed By: #### 5 7021-8 #### [facility] CLIA [id number] [address] MCV (RBC) [Entitic vol] 85.9 fL Normal 80.0-100.0 [facility] Comment on above: Order Comment: Speci men Type: BLOOD SPECIMEN [facility] Address: [address] [place] [address] Performed By: #### 5 7021-8 #### [facility] CLIA [id number] [address] Monocytes (Bld) [#/Vol] 0.06 10*3/uL Normal <0.87 [facility] Comment on above: Order Comment: Speci men Type: BLOOD SPECIMEN [facility] Address: [address] [place] [address] Performed By: #### 5 7021-8 #### [facility] CLIA [id number] [address] [place] Monocytes/100 WBC (Bld) 1.2 % Normal [facility] Comment on above: Order Comment: Speci men Type: BLOOD SPECIMEN [facility] Address: [address] [place] [address] Performed By: #### 5 7021-8 #### [facility] CLIA [id number] [address] [place] [address] [place] Neutrophils (Bld) [#/Vol] 4.76 10*3/uL Normal 1.45-7.50 [facility] Comment on above: Order Comment: Speci men Type: BLOOD SPECIMEN [facility]: [facility] Address: [address] [place] [address] Performed By: #### 5 7021-8 #### [facility] CLIA [id number] [address] [place] [address] [place] Neutrophils/100 WBC (Bld) 92.0 % Normal [facility] Comment on above: Order Comment: Speci men Type: BLOOD SPECIMEN [facility] Address: [address] [place] [address] Performed By: #### 5 7021-8 #### [facility] CLIA [id number] [address] [place] [address] [place] Nucleated RBC (Bld) [#/Vol] 10*3/uL Normal <0.01 [facility] Comment on above: Order Comment: Speci men Type: BLOOD SPECIMEN [facility]: [facility] Address: [address] [place] [address] Performed By: #### 5 7021-8 #### [facility] CLIA [id number] [address] [place] [address] [place] Nucleated RBC/100 WBC (Bld) [Ratio] 0.0 /100 WBC Normal [facility] Comment on above: Order Comment: Speci men Type: BLOOD SPECIMEN [facility]ing Facility: [facility] Address: [address] [place] [address] Performed By: #### 5 7021-8 #### [facility] CLIA [id number] [address] Platelet mean volume (Bld) [Entitic vol] 9.0 fL Normal 9.0-12.7 [facility] Comment on above: Order Comment: Speci men Type: BLOOD SPECIMEN [facility]: [facility] Address: [address] [place] [address] Performed By: #### 5 7021-8 #### [facility] CLIA [id number] [address] [place] Platelets (Bld) [#/Vol] 286 10*3/uL Normal 150-400 [facility] Comment on above: Order Comment: Speci men Type: BLOOD SPECIMEN [facility] Address: [address] [place] [address] Performed By: #### 5 7021-8 #### [facility] CLIA [id number] [address] [place] RBC (Bld) [#/Vol] 4.69 10*6/uL Normal 3.90-5.20 [facility] Comment on above: Order Comment: Speci men Type: BLOOD SPECIMEN [facility] Facility: [facility] Address: [address] [place] [address] Performed By: #### 5 7021-8 #### [facility] CLIA [id number] [address] WBC (Bld) [#/Vol] 5.17 10*3/uL Normal 3.70-11.00 [facility] Comment on above: Order Comment: Speci men Type: BLOOD SPECIMEN [facility]: [facility] Address: [address] [place] [address] Performed By: #### 5 7021-8 #### [facility] CLIA [id number] [address] ECG COMPLETEon 11-17-2023 ECG COMPLETE Ventricular Rate : 1 15 BPM Atrial Rate : 115 BPM P-R Interval : 158 ms QRS Duration : 74 ms Q-T Interval : 312 ms QTC Calculation(Bazett) : 431 ms Calculated [address] : 94 degrees Calculated R [address] : 84 degrees Calculated T [address] : 88 degrees SINUS TACHYCARDIA RIGHT ATRIAL ENLARGEMENT MINIMAL VOLTAGE CRITERIA FOR LVH, MAY BE NORMAL VARIANT BORDERLINE ECG NO PREVIOUS ECGS AVAILABLE Confirmed by MD BLAND GREGORY () on 11/18/2023 7:35:32 AM NAME : CINTHIA GUERRERO PID : [id number] : 1960 Gender : Female Race : ORD : [id number] Procedure Date : Nov 17 2023 14:38:04 Edit Date : Nov 18 2023 07:35:34 Diagnosis: SINUS TACHYCARDIA RIGHT ATRIAL ENLARGEMENT MINIMAL VOLTAGE CRITERIA FOR LVH, MAY BE NORMAL VARIANT BORDERLINE ECG NO PREVIOUS ECGS AVAILABLE Confirmed by MD BLAND GREGORY () on 11/18/2023 7:35:32 AM Test Reason : [facility] Location : [address] [place] [address] Overread By : MD BLAND GREGORY Edited By : MD BLAND GREGORY Referred By : TEO CRAFT Acquired by : [facility] HISTORY PHYSICALon HISTORY PHYSICAL HNO ID: [id number] Author: BRIE KAUR PA-C Service: ? Author Type: Physician Diving Fisher Type: H&P Filed: 11/17/2023 15:34 Note Text: [...] via NC. Follows with outside pulm at [facility], Dr. Valery DAVIS in October per pt. Diminished breath sounds bilaterally throughout, no wheezing. SpO2 95% on 2L O2. 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 Pt reports she called wildlife control operator's office because she felt like her breathing [...] large neck Non-male patient STOP-Bang Score: 1 [id number] Score: Age: <65 Sex: female CHF history: No Hypertension history: No Stroke/TIA/thromboembo lism history: No Vascular disease history: No Diabetes history: No [id number] Score: 1 ANESTHESIA FINDINGS: Intubation History: No [...] Initiated: Orders placed by surgeon/surgical service in [facility]. Orders Placed This Encounter Complete Blood [...] currently 12/16/23 i (more content not included)... [facility] 11-16-2023 [facility] Telephone (RADTSA) CINTHIA GUERRERO ([id number]) 1960 F Date Time Provider Department 11/16/23 ABDI ISRAEL During your visit today, we recorded the following information about you: Silvia Jha, RN 11/16/2023 9:51 AM Signed Pt called in [...] lung (HCC) [C34.90] Order(s):NM PET/CT SKULL-THIGH SUBSEQUENT [[id number]] Order #: [id number] FUTURE CT CHEST W IVCON [[id number]] Order #: [id number] FUTURE [] iv contrast (will be provided [...] Encounter Status:Closed by SILVIA JHA on 12/09/23 Normal [facility] CNOVon 10-27-2023 CNOV Office Visit (OTOLMN ) CINTHIA GUERRERO ([id number]) 1960 F Date Time Provider Department 10/27/23 [...] date: Supplemental oxygen dependent PAST SURGICAL HISTORY 1973: APPENDECTOMY No date: BRONCHOSCOPY Comment: 2022 1984: SNGL 2012: COLONOSCOPY Current Outpatient Medications Medication Sig Dispense [...] IX, X: (more content not included)... Normal [facility] US NECK (POC) HNI USE ONLYon 10-27-2023 [facility] Radiology Study observation (narrative) Jose Cruz santiago [facility] CINTHIA GUERRERO ([id number]) 1960 F Date Time Provider Department 09/21/23 ABDI ISRAEL During your visit today, we recorded the following information about you: Rodney Rinaldi 09/21/2023 7:17 AM Signed Abdi Israel MD Stock, Sarah E, MD, MD Cc: Anita Pressley LPN; Silvia Jha RN; Rodney Rinaldi Nd Dr. Mcintyre - I appreciate the update and the context for the pathology results. Rashid/Rebel/Lalof - please refer Ms. Guerrero to Dr. Craft for consideration of excisional biopsy. Thanks! Abdi Dailey please place orders, thank you! Silvia Jha RN 09/21/2023 9:05 AM Signed Order pended- please review before signing. LUCIE Mchugh Angela, RN 09/23/2023 8:[address] Israel- please sign pended ENT order so Rodney can contact Dr Craft for consult. LUCIE Mchugh Angela, RN 09/24/2023 3:33 PM Signed [place]- Dr Israel signed ENT order for Dr [...] Fully Assessed Reason for Visit: Appointment Confirmation [3509] Primary Visit Diagnosis:Non-small cell cancer of left lung (HCC) [C34.92] Other Visit Diagnosis: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) [C77.0] Order(s):BIOPSY/REMOVA L, LYMPH NODE(S) [[id number]] Order #: [id number] CONSULT TO ENT [[id number]] Order #: [id number]: 1 FUTURE Prescriptions as of 09/30/2023 - [...] Encounter Status:Closed by RODNEY RINALDI on 09/30/23 [facility] BRIEF OP NOTon 09-16-2023 BRIEF OP NOT HNO ID: [id number] Author: KHUSHBOO MCINTYRE MD Service: Radiology Author Type: Physician Type: Brief Op Note Filed: 09/16/2023 11:09 Note Text: Summary: Left cervical lymph node biopsy BRIEF OPERATIVE / PROCEDURE NOTE LOG ID: [id number] SURGERY/PROCEDURE DATE: 09/16/2023 INCISION/PROCEDURE START TIME: 10:42 AM INCISION CLOSE/PROCEDURE END TIME: 11:02 AM SURGEON(S)/PROCEDURALI ST(S) AND CRIBBER(S): Surgeon(s) and Role: * Khushboo Mcintyre MD, [...] DATE: September 16, 2023 TIME: 11:06 AM Normal [facility] NURSING PROGon 09-16-2023 NURSING PROG HNO ID: [id number] Author: YAKELIN REILLY RN Service: ? Author Type: Registered Nurse Type: Nursing Progress Note Filed: 09/17/2023 08:20 Note Text: Completed post procedure phone call. Omaira is feeling well and has returned to her baseline diet and activity. Omaira denies questions or concerns related to her biopsy appointment on 09/16/23 and had no surgical site concerns. Normal [facility] PT EDon 09-16-2023 PT ED HNO ID: [id number] Author: RASHID HOWELL RN Service: ? Author [...] Signed By: Rashid Howell RN In Department: [place] [address] Normal [facility] SURGICAL PATHOLOGYon 024 CASE REPORT Normal [facility] Comment on above: Order Comment: Speci deepthi Type: TISSUE SPECIMENOrdering Facility: [facility] Address: [address] [place] [address] Result Comment: Surg ical Pathology Report Case: [id number] Authorizing Provider: Khushboo Mcintyre MD, Collected: 09/16/2023 10:48 AM Ordering Location: [place] [address] Received: 09/16/2023 04:42 PM Pathologist: Tucker Mulligan V, MD Specimen: Lymph Node, Biopsy, left level 5 Performed By: #### S ####[facility] LABCLIA [id number] [place] [address] [place] CLINICAL HISTORY history of lung ca Normal [facility] Comment on above: Order Comment: Specministerio lacey Type: TISSUE SPECIMENOrdering Facility: [facility] Address: [address] [place] [address] Performed By: #### S ####[facility] LABCLIA [id number] [place] [address] [place] DIAGNOSIS COMMENT Normal [facility] Comment on above: Order Comment: Renuka lacey Type: TISSUE SPECIMENOrdering Facility: [facility] Address: [address] [place] [address] Result Comment: Immu nohistochemical stains were performed [...] been determined by the performing laboratory within [facility]???s Adarsh Yang Pathology and Laboratory Medicine Department ([facility], [facility], [facility], [facility], [facility], [facility], or [facility]) in a manner consistent with CLIA requirements. One or more of these tests have not been cleared or approved by the FDA. [facility] is regulated under CLIA as qualified to perform high-complexity testing. These tests are used for clinical purposes. They should not be regarded as investigational or for research. Positive and negative controls stain appropriately. Performed By: #### S ####[facility] LABCLIA [id number] [place] [address] [place] FINAL DIAGNOSIS Normal [facility] Comment on above: Order Comment: Speci men Type: TISSUE SPECIMENOrdering Facility: [facility] Address: [address] [place] [address] Result Comment: Lymp h node, left level 5, biopsy: - Fragments of lymphoid tissue; negative for neoplasm (see comment). [place]/ 09/17/2023 Performed By: #### S ####[facility] LABCLIA [id number] [address] STATES OF [facility] FINAL PERFORMING LAB Normal [facility] Comment on above: Order Comment: Speci men Type: TISSUE SPECIMENOrdering Facility: [facility] Address: [address] [place] [address] Result Comment: Diag nostic interpretation performed at [facility], [address] [place] [address] CLIA# [id number] Global Account Executive: Axel Romano M.D. Performed By: #### S ####[facility] LABCLIA [id number] [address] [place] GROSS DESCRIPTION Normal [facility] Comment on above: Order Comment: Speci men Type: TISSUE SPECIMENOrdering Facility: [facility] Address: [address] [place] [address] Result Comment: A. L ymph Node, Biopsy Received in formalin are multiple segments of cylindrical tissue 1.3 x 0.2 x 0.1 cm, carcamo and of a soft and friable consistency. Totally submitted in one cassette. Gross examination performed at [facility], [address] [place] [id number] [place] September 16, 2023 7:23 PM Performed By: #### S ####[facility] LABCLIA [id number] [address] [place] [id number] [facility] US BIOPSY CERVICAL LYMPH NOD Archie 09-16-2023 US BIOPSY CERVICAL LYMPH NODE * * *Final Report* * * DATE OF EXAM: Sep 16 2023 2:45PM [facility] [place] - [place] BIOPSY CERVICAL LYMPH NODE [...] lung cancer. STAFF RADIOLOGIST: Dr. Lopez Mcintyre CRIBBER(S): None CONSENT: Informed consent was obtained for this procedure. Details of informed consent can be found in [facility] under the consent tab. TIME OUT: [...] performed by the: attending radiologist, without an print shop assistant. The attending radiologist performed the following [...] IMPRESSION: ULTRASOUND GUIDED BIOPSY DESCRIBED v 05/25/18 Plasterer Apprentice: EVELYN Transcribe Date/Time: Sep 16 2023 4:33P Dictated by : KHUHSBOO MCINTYRE MD This examination was interpreted and the report reviewed and electronically signed by: KHUSHBOO MCINTYRE MD on Sep 20 2023 4:11PM EST [id number] Normal [facility] CBC panel Auto (Bld)on 09-13 Erythrocyte distribution width (RBC) [Ratio] 13.2 % Normal 11.5-15.0 [facility] Comment on above: Order Comment: Speci men Type: BLOOD SPECIMENOrdering Facility: [facility] Address: [address] [place] [address] Performed By: #### 5 8410-2 ####[facility] LABCLIA [id number] [place] [address] Hematocrit (Bld) [Volume fraction] 38.5 % Normal 36.0-46.0 [facility] Comment on above: Order Comment: Speci men Type: BLOOD SPECIMENOrdering Facility: [facility] Address: [address] [place] [address] Performed By: #### 5 8410-2 ####[facility] LABCLIA [id number] [place] [address] Hemoglobin (Bld) [Mass/Vol] 11.8 g/dL Normal 11.5-15.5 [facility] Comment on above: Order Comment: Speci men Type: BLOOD SPECIMENOrdering Facility: [facility] Address: [address] [place] [address] Performed By: #### 5 8410-2 ####[facility] LABCLIA [id number] [place] [address] MCH (RBC) [Entitic mass] 27.2 pg Normal 26.0-34.0 [facility] Comment on above: Order Comment: Speci men Type: BLOOD SPECIMENOrdering Facility: [facility] Address: [address] [place] [address] Performed By: #### 5 8410-2 ####[facility] LABCLIA [id number] [place] [address] MCHC (RBC) [Mass/Vol] 30.6 g/dL Normal 30.5-36.0 [facility] Comment on above: Order Comment: Speci men Type: BLOOD SPECIMENOrdering Facility: [facility] Address: [address] [place] [address] Performed By: #### 5 8410-2 ####[facility] LABCLIA [id number] [place] [address] MCV (RBC) [Entitic vol] 88.7 fL Normal 80.0-100.0 [facility] Comment on above: Order Comment: Speci men Type: BLOOD SPECIMENOrdering Facility: [facility] Address: [address] [place] [address] Performed By: #### 5 8410-2 ####[facility] LABCLIA [id number] [place] [address] Nucleated RBC (Bld) [#/Vol] 10*3/uL Normal <0.01 [facility] Comment on above: Order Comment: Speci men Type: BLOOD SPECIMENOrdering Facility: [facility] Address: [address] [place] [address] Performed By: #### 5 8410-2 ####[facility] LABCLIA [id number] [place] [address] Platelet mean volume (Bld) [Entitic vol] 8.9 fL Low 9.0-12.7 [facility] Comment on above: Order Comment: Speci men Type: BLOOD SPECIMENOrdering Facility: [facility] Address: [address] [place] [address] Performed By: #### 5 8410-2 ####[facility] LABIA [id number] [place] [address] Platelets (Bld) [#/Vol] 288 10*3/uL Normal 150-400 [facility] Comment on above: Order Comment: Speci men Type: BLOOD SPECIMENOrdering Facility: [facility] Address: [address] [place] [address] Performed By: #### 5 8410-2 ####[facility] [id number] [place] [address] RBC (Bld) [#/Vol] 4.34 10*6/uL Normal 3.90-5.20 [facility] Comment on above: Order Comment: Speci men Type: BLOOD SPECIMENOrdering Facility: [facility] Address: [address] [place] [address] Performed By: #### 5 8410-2 ####[facility] [id number] [place] [address] WBC (Bld) [#/Vol] 7.28 10*3/uL Normal 3.70-11.00 [facility] Comment on above: Order Comment: Speci men Type: BLOOD SPECIMENOrdering Facility: [facility] Address: [address] [place] [address] Performed By: #### 5 8410-2 ####[facility] [id number] [place] [address] NURSING PROGon 09-14-2023 NURSING PROG HNO ID: [id number] Author: YAKELIN ONOFRE LPN Service: ? Author Type: LICENSED NURSE Type: Nursing Progress Note Filed: 09/14/2023 10:55 Note Text: Pre- e instructions: Address: [address] [place] [address] Contacted patient and confirmed appt. for biopsy scheduled on 09/16/23, at [facility]. Diet: Procedure to be done with local anesthetic, you may eat, drink and take medications as prescribed the day of this procedure. Medications: IF ok with your Prescribing Provider: RADIOLOGY RECOMMENDS THESE MEDICATION RESTRICTIONS : None Labs: Lab work needs to be drawn by 09/15/[address] [facility] Lab. Arrival: Please bring your Photo ID and Insurance Card. A general consent may need to be signed. Arrival at 8:30am to desk QB-1 ([facility]) and check in for your procedure. Reject Opener And Filler/Transportation: Reject Opener And Filler not necessary Written instructions provided to patient via transOMIC If you have any questions please call [phone] Normal [facility] CNPNon 09-08-2023 CNPN Telephone (IRRFV) CINTHIA GUERRERO ([id number]) 1960 F Date Time Provider Department 09/08/23 ABDI ISRAEL IRRFV During your visit today, we recorded the following information about you: Chloe Nicole 09/08/2023 10:45 AM Signed RADIOLOGY CALL CENTER INTAKE DATE: 09/08/2023 TIME: 10:44am REQUESTING STAFF: Abdi Israel MD PHONE/PAGER: [phone] SPECIFICS OF THE REQUEST:Cervical lymph node bx SPECIAL REQUESTS: TISSUE SAMPLE, LABWORK: N/A IS THIS REQUEST PART OF A RESEARCH PROTOCOL: No MEDICAL DIAGNOSIS: Malignant neoplasm of unspecified part of unspecified bronchus or lung (HCC) [C34.90] TYPE AND DATE OF THE EXAM THAT IS THE BASIS OF THE REQUEST: PET 09/01/2023 IMAGING: [facility] Note to all persons requesting biopsies: All biopsy requests will be scheduled as quickly as possible, based on the clinical urgency, availability of appointment times, the need to hold anti-thrombolytic therapy (aspirin, blood thinners) and the patient?s schedule, including the need for an available driver helper. If a percutaneous biopsy or drainage is [...] for this procedure: intermediate-high risk. Reference from [facility] Gutter Mouth Cutter: [email or web address] STAFF SIGNATURE: Osito Galicia MD DATE: September 09, 2023 TIME: 9:31 AM LeyvaNeha 09/14/2023 10:17 AM Signed Spoke to pt [...] PEDIATRIC ASTHMA Inhale (more content not included)... [facility] Telephone (NCCAP) CINTHIA GUERRERO ([id number]) 1960 F Date Time Provider Department 09/08/23 ABDI ISRAEL During your visit today, we recorded the following information about you: Rodney Rinaldi 09/08/2023 7:24 AM Signed Abdi Israel MD Graves, Ariana, LPN Cc: Silvia Jha, RN; Rodney Rinaldi Please set Ms. Guerrero up for an US guided biopsy of one of the lymph nodes in the neck seen on PET CT at either [facility] or [facility]. Thanks! Abdi Nicolas MD 09/08/2023 9:51 AM Signed Yes please - Abdi Nicolas MD 09/08/2023 10:37 AM Signed Signed - thanks! Rodney Bedolla 09/14/2023 9:55 AM Signed Pina Girl, just checking on this one thanks [...] Encounter Status:Closed by RODNEY RINALDI on 09/14/23 Normal [facility] PET+CT Guidance for localiza tion of tumor of Skull base to mid-thigh-- W 18F-FDG Angelita 09-05-2023 IMPRESSION: HEAD/NECK: * Few hypermetabolic left lower [...] any questions regarding this interpretation, please call [phone]. If you are unable to reach us at the number above, please feel free to contact [facility] at [phone]. DIVISION OF RADIOLOGY * * *Final Report* * * DATE [...] * Radiopharmaceutical Dose: 6.6 mCi * Radiopharmaceutical: J34-Yxdtclqucbbllcbigt (FDG) COMPARISON: PET/CT 03/07/2022 CORRELATION: CT 08/13/23 RESULT: REFERENCES: SUV reference values: * Blood pool (descending aorta) activity: SUVmax 1.8 * Background liver activity: SUVmax 2.2; SUVmean 1.6 Rn Prior Authorization (topogram) images: No additional findings Notes and [...] NECK: Imaged Head: No abnormal uptake. Neck & Lymph Nodes: Few hypermetabolic left lower cervical/supraclavicul ar lymph nodes measuring up to 1.2 cm (max SUV 4.7). Thyroid: No abnormal uptake. CHEST: Lungs & Airways: Left apical left suprahilar region consolidation/opacity with low activity (Max SUV 3.3) likely posttreatment change. Additionally there is a more focal nodular opacity measuring about 3 x 2.5 cm hypermetabolic activity (max SUV 6.7) raising suspicious for neoplasm. Emphysematous changes in the lungs. Pleura & Pericardium: No abnormal uptake. Cardiovascular: No abnormal uptake. Mediastinum & Lymph Nodes: No abnormal uptake. ABDOMEN AND PELVIS: Hepatobiliary: No abnormal uptake. Spleen: No abnormal uptake. Pancreas: No abnormal uptake. Adrenals: No abnormal uptake. Urinary Tract: No abnormal uptake. GI Tract: Hypermetabolic focus in the region of the sigmoid colon (max SUV 9.2). Peritoneum: No abnormal uptake. Vasculature: No abnormal uptake. Retroperitoneum & Lymph Nodes: No abnormal uptake. Pelvis: No abnormal uptake. MUSCULOSKELETAL: Osseous: No abnormal uptake. Soft Tissues: No abnormal uptake. DIVISION OF RADIOLOGY Provider, [facility] - 09/05/2023 * * *Final Report* * * DATE [...] * Radiopharmaceutical Dose: 6.6 mCi * Radiopharmaceutical: P64-Drnmtdqthryaevlqcj (FDG) COMPARISON: PET/CT 03/07/2022 CORRELATION: CT 08/13/23 RESULT: REFERENCES: SUV reference values: * Blood pool (descending aorta) activity: SUVmax 1.8 * Background liver activity: SUVmax 2.2; SUVmean 1.6 Rn Prior Authorization (topogram) images: No additional findings Notes and [...] NECK: Imaged Head: No abnormal uptake. Neck & Lymph Nodes: Few hypermetabolic left lower cervical/supraclavicul ar lymph nodes measuring up to 1.2 cm (max SUV 4.7). Thyroid: No abnormal uptake. CHEST: Lungs & Airways: Left apical left suprahilar region consolidation/opacity with low activity (Max SUV 3.3) likely posttreatment change. Additionally there is a more focal nodular opacity measuring about 3 x 2.5 cm hypermetabolic activity (max SUV 6.7) raising suspicious for neoplasm. Emphysematous changes in the lungs. Pleura & Pericardium: No abnormal uptake. Cardiovascular: No abnormal uptake. Mediastinum & Lymph Nodes: No abnormal uptake. ABDOMEN AND PELVIS: Hepatobiliary: No abnormal uptake. Spleen: No abnormal uptake. Pancreas: No abnormal uptake. Adrenals: No abnormal uptake. Urinary Tract: No abnormal uptake. GI Tract: Hypermetabolic focus in the region of the sigmoid colon (max SUV 9.2). Peritoneum: No abnormal uptake. Vasculature: No abnormal uptake. Retroperitoneum & Lymph Nodes: No abnormal uptake. Pelvis: No abnormal uptake. MUSCULOSKELETAL: Osseous: No abnormal uptake. Soft Tissues: No abnormal uptake. IMPRESSION IMPRESSION: HEAD/NECK: * Few hypermetabolic left lower [...] any questions regarding this interpretation, please call [phone]. If you are unable to reach us at the number above, please feel free to contact [facility] eRadiology at [phone]. 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 CONSULT PROGon 09-01-2023 CONSULT PROG HNO ID: [id number] Author: STACIA IRVING RN Service: ? Author [...] Filtration Rate (eGFR) is calculated using the 2021 CKD-EPI creatinine equation. This equation utilizes serum [...] September 01, 2023 TIME: 12:54 PM Normal [facility] GLUCOSE, BLOOD (POC)on 08-31 Glucose [Mass/Vol] 95 mg/dL 74 - 99 mg/dL [facility] Comment on above: Location:[facility], [address] [place] [address] , [place], [place], [facility] The Accu-Chek Inform II glucose meter has not been approved for testing on patients receiving intensive medical intervention or therapy and results from this point of care glucose test should not be used for patient management decisions in these cases. Inaccurate results may also occur from other interfering factors, such as N-acetylcysteine (blood concentrations of greater than 5mg/dL), galactose, extremes of hematocrit (<10 or >65), or high doses of ascorbic acid (vitamin C) greater than 3mg/dL. Consider alternate testing mechanisms (e.g. core lab, blood gas instrument) in the above situations. [facility] NM PET/CT SKULL-THIGH SUBQon 09-01-2023 NM PET/CT SKULL-THIGH [...] * Radiopharmaceutical Dose: 6.6 mCi * Radiopharmaceutical: F43-Xlaeeezyqyxfxomqgw (FDG) COMPARISON: PET/CT 03/07/2022 CORRELATION: CT 08/13/23 RESULT: REFERENCES: SUV reference values: * Blood pool (descending aorta) activity: SUVmax 1.8 * Background liver activity: SUVmax 2.2; SUVmean 1.6 Rn Prior Authorization (topogram) images: No additional findings Notes and [...] any questions regarding this interpretation, please call [phone]. If you are unable to reach us at the number above, please feel free to contact [facility] eRadiology at [phone]. 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 He called her today to let her know that there was something concerning and he wanted her to contact our office. CT report printed from [facility] and images requested. Dr Israel- please [...] Signed Scan from July was CXR. Per LROENZO, no need to get images. PSS- I [...] lung (HCC) [C34.90] Order(s):NM PET/CT SKULL-THIGH SUBSEQUENT [[id number]] Order #: [id number] FUTURE Prescriptions as of 08/18/2023 - iv [...] Encounter Status:Closed by SILVIA JHA on 08/18/23 [facility] CNOVon 05-25-2023 CNOV Office Visit (RADTSA ) CINTHIA GUERRERO ([id number]) 1960 F Date Time Provider Department 05/25/23 [...] COPD, who is diagnosed with Stage IA3, [id number], non-small cell lung cancer arising from a [...] remains on supplemental oxygen at 2 L/min [id number] and continues on Pulmicort and albuterol rescue inhaler. He denies cough or hemoptysis or chest pain or difficulty swallowing today. She does note fatigue with stable appetite and hydration. 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 She had repeat CT imaging of the [...] which included preparing to see the patient, [id number] patient care, and counseling and educating the patient/family/careg (more content not included)... [facility]N Tele[facility] (RADTSA) CINTHIA GUERRERO ([id number]) 1960 F Date Time Provider Department 05/20/23 ABDI ISRAEL During your visit today, we recorded the following information about you: Silvia Jha, LUCIE 05/20/2023 9:55 AM Signed Pt called in and was admitted to [facility] last week. They did CT Chest. She has been waiting on insurance approval for a chest CT and will not need one now. She would like follow up arranged. Reports printed from [facility] and images requested. PSS- please call pt and arrange follow up with Dr Israel for next week. Thank you LUCIE Mchugh Tiffany 05/20/2023 9:59 AM Signed Patient is called and scheduled for next week Allergies As of Date: 05/20/2023 Noted Allergy Reaction LEVOQUIN (LEVOFLOXACIN) 03/02/2018 16 - Unknown Comments: Tendonitis but can take avalox Date Reviewed: 11/27/2022 Reviewed by: Silvia Jha, LUCIE - Fully Assessed Reason for Visit: Patient [...] Status:Closed by SILVIA JHA on 05/20/23 Normal [facility] Complete Blood Count Auto Di ffon 05-15-2023 Basophils (Bld) [#/Vol] 0.0 10*3/uL Normal 0.0-0.2 [facility] Comment on above: Result Comment: PERF ORMED BY: [place] [address] PATHOLOGIST SCALE MECHANIC JASMEET LIN M.D. Performed By: #### C MP, CBC, HS TROP, TSH3 wRFLX #### [address] Basophils/100 WBC (Bld) 0.3 % Normal . Gerry worthington [facility] Comment on above: Performed By: #### C MP, CBC, HS TROP, TSH3 wRFLX #### [facility] [address] [place] [address] [place] Eosinophils (Bld) [#/Vol] 0.0 10*3/uL Normal 0.0-0.45 [facility] Comment on above: Performed By: #### C MP, CBC, HS TROP, TSH3 wRFLX #### [facility] [address] [place] [address] [place] Eosinophils/100 WBC (Bld) 0.0 % Normal . [facility] Comment on above: Performed By: #### C MP, CBC, HS TROP, TSH3 wRFLX #### [address] Erythrocyte distribution width (RBC) [Ratio] 13.5 % Normal 11.9-15.3 [facility] Comment on above: Performed By: #### C MP, CBC, HS TROP, TSH3 wRFLX #### [address] Hematocrit (Bld) [Volume fraction] 42.0 % Normal 34.0-46.4 [facility] Comment on above: Performed By: #### C MP, CBC, HS TROP, TSH3 wRFLX #### [address] Hemoglobin (Bld) [Mass/Vol] 13.9 g/dL Normal 11.8-15.4 [facility] Comment on above: Performed By: #### C MP, CBC, HS TROP, TSH3 wRFLX #### [address] Lymphocytes (Bld) [#/Vol] 0.6 10*3/uL Low 1.00-4.8 [facility] Comment on above: Performed By: #### C MP, CBC, HS TROP, TSH3 wRFLX #### [address] Lymphocytes/100 WBC (Bld) 8.4 % Normal . [facility] Comment on above: Performed By: #### C MP, CBC, HS TROP, TSH3 wRFLX #### [address] MCH (RBC) [Entitic mass] 28.0 pg Normal 24.7-34.3 [facility] Comment on above: Performed By: #### C MP, CBC, HS TROP, TSH3 wRFLX #### [address] MCV (RBC) [Entitic vol] 84.8 fL Normal 80-100 T [facility] Comment on above: Performed By: #### C MP, CBC, HS TROP, TSH3 wRFLX #### [address] Mean Corpuscular HGB Conc 33.0 g/dL Normal 32.0-35.0 [facility] Comment on above: Performed By: #### C MP, CBC, HS TROP, TSH3 wRFLX #### [place] [address] [place] Monocytes (Bld) [#/Vol] 0.4 10*3/uL Normal 0.0-0.8 [facility] Comment on above: Performed By: #### C MP, CBC, HS TROP, TSH3 wRFLX #### [address] Monocytes/100 WBC (Bld) 4.9 % Normal . T [facility] Comment on above: Performed By: #### C MP, CBC, HS TROP, TSH3 wRFLX #### [address] Neutrophils (Bld) [#/Vol] 6.6 10*3/uL Normal 1.8-7.7 [facility] Comment on above: Performed By: #### C MP, CBC, HS TROP, TSH3 wRFLX #### [address] Neutrophils/100 WBC (Bld) 86.4 % Normal . [facility] Comment on above: Performed By: #### C MP, CBC, HS TROP, TSH3 wRFLX #### [place] [address] [place] NRBC% 0.0 /100{WBC} Normal 0-0.5 [facility] Comment on above: Performed By: #### C MP, CBC, HS TROP, TSH3 wRFLX #### [address] Platelet mean volume (Bld) [Entitic vol] 7.3 fL Normal 6.3-10.7 [facility] Comment on above: Performed By: #### C MP, CBC, HS TROP, TSH3 wRFLX #### [address] Platelets (Bld) [#/Vol] 378 10*3/uL Normal 150-450 [facility] Comment on above: Performed By: #### C MP, CBC, HS TROP, TSH3 wRFLX #### [address] RBC (Bld) [#/Vol] 4.95 10*6/uL Normal 3.60-5.00 [facility] Comment on above: Performed By: #### C MP, CBC, HS TROP, TSH3 wRFLX #### [address] WBC (Bld) [#/Vol] 7.6 10*3/uL Normal 3.8-11.6 [facility] Comment on above: Performed By: #### C MP, CBC, HS TROP, TSH3 wRFLX #### [address] Comprehensive Metabolic Pane shelby 05-15-2023 Albumin [Mass/Vol] 4.0 g/dL Normal 3.5-5.7 [facility] Comment on above: Performed By: #### C MP, CBC, HS TROP, TSH3 wRFLX #### [address] Albumin/Globulin [Mass ratio] 1.3 {ratio} Normal [facility] Comment on above: Performed By: #### C MP, CBC, HS TROP, TSH3 wRFLX #### [address] ALP [Catalytic activity/Vol] 68 U/L Normal 34-104 [facility] Comment on above: Performed By: #### C MP, CBC, HS TROP, TSH3 wRFLX #### [address] ALT [Catalytic activity/Vol] 13 U/L Normal 7-52 [facility] Comment on above: Performed By: #### C MP, CBC, HS TROP, TSH3 wRFLX #### [address] Anion gap [Moles/Vol] 6.9 mmol/L Normal 6.0-15.0 [facility] Comment on above: Performed By: #### C MP, CBC, HS TROP, TSH3 wRFLX #### [address] AST [Catalytic activity/Vol] 16 U/L Normal 13-39 [facility] Comment on above: Performed By: #### C MP, CBC, HS TROP, TSH3 wRFLX #### [address] Bilirubin [Mass/Vol] 0.4 mg/dL Normal 0.3-1.0 [facility] Comment on above: Performed By: #### C MP, CBC, HS TROP, TSH3 wRFLX #### [address] Calcium [Mass/Vol] 9.7 mg/dL Normal 8.6-10.3 [facility] Comment on above: Performed By: #### C MP, CBC, HS TROP, TSH3 wRFLX #### [address] Chloride [Moles/Vol] 90 mmol/L Low 98-107 [facility] Comment on above: Performed By: #### C MP, CBC, HS TROP, TSH3 wRFLX #### [address] CO2 [Moles/Vol] 44.4 mmol/L High 21.0-31.0 [facility] Comment on above: Performed By: #### C MP, CBC, HS TROP, TSH3 wRFLX #### [address] Creatinine [Mass/Vol] 0.48 mg/dL Low 0.60-1.20 [facility] Comment on above: Performed By: #### C MP, CBC, HS TROP, TSH3 wRFLX #### [place] [address] Creatinine Clr Calc Pharmacy 76.17 Normal [facility] Comment on above: Result Comment: PERF ORMED BY: [place] [address] PATHOLOGIST SCALE MECHANIC JASMEET LIN M.D. Performed By: #### C MP, CBC, HS TROP, TSH3 wRFLX #### [address] GFR/1.73 sq M.predicted MDRD (S/P/Bld) [Vol rate/Area] mL/min/{1.73_m2} Normal [facility] Comment on above: Performed By: #### C MP, CBC, HS TROP, TSH3 wRFLX #### [address] Globulin (S) [Mass/Vol] 3.1 g/dL Normal T [facility] Comment on above: Performed By: #### C MP, CBC, HS TROP, TSH3 wRFLX #### [address] Glucose [Mass/Vol] 148 mg/dL High 70-100 [facility] Comment on above: Result Comment: [facility] Glucose Reference Range is dependent on time and content of last meal. Glucose of more than 200 mg/dL in a nonstressed, ambulatory subject supports the diagnosis of Diabetes Mellitus. ADA recommended reference range Performed By: #### C MP, CBC, HS TROP, TSH3 wRFLX #### [address] Potassium [Moles/Vol] 4.3 mmol/L Normal 3.5-5.1 [facility] Comment on above: Performed By: #### C MP, CBC, HS TROP, TSH3 wRFLX #### [address] Protein [Mass/Vol] 7.1 g/dL Normal 6.4-8.9 [facility] Comment on above: Performed By: #### C MP, CBC, HS TROP, TSH3 wRFLX #### [facility] [address] Sodium [Moles/Vol] 137 mmol/L Normal 136-145 [facility] Comment on above: Performed By: #### C MP, CBC, HS TROP, TSH3 wRFLX #### [facility] [address] Urea nitrogen [Mass/Vol] 13 mg/dL Normal 7-25 [facility] Comment on above: Performed By: #### C MP, CBC, HS TROP, TSH3 wRFLX #### [facility] [address] angio chest PE protocolon 05-14-2023 CT angio chest PE protocol [facility] [place] [address] [place] [address] CT Scan Report Signed Patient: Cinthia Guerrero MR#: [id number] : 1960 Acct:[id number] Age/Sex: 62 / F ADM Date: 05/14/23 Loc: Room: [address] [place] [address] Type: ADM IN Attending Dr: Cassandra Andersen [...] Wong Byrd M.D.05/14/2023 8:07 AM Dictation Location: [place] [address] Transcribed By: [facility] 05/14/23806 Dictated By: Wong Byrd DO 05/14/23801 Signed By: 05/14/23806 Normal [facility] B-Type Natriuretic Peptideon 05-13-2023 Natriuretic peptide B (Bld) [Mass/Vol] 25.0 pg/mL Normal 5-100 [facility] Comment on above: Result Comment: PERF ORMED BY: [place] [address] PATHOLOGIST SCALE MECHANIC JASMEET LIN M.D. Performed By: #### B MANAGED SERVICES CONSULTANT #### [address] COVID-19 / Flu A/B / RSV [...] or Cepheid Disclaimer revoked sooner. PERFORMED BY: [place] [address] PATHOLOGIST SCALE MECHANIC JASMEET LIN M.D. Normal [facility] Comment on above: Performed By: #### C MP, CBC, HS TROP, TSH3 wRFLX #### [address] Cepheid COVID PCR Negativeon 05-13-2023 SARS-CoV-2 (COVID-19) RNA KRUNAL+probe Ql (Unsp spec) Negative Normal Negative [facility] Comment on above: Result Comment: This is a duplicate Cepheid Xpert Xpress CoV-2/Flu/RSV Plus RNA by RT-PCR result to be used for statistical tracking purpose only. PERFORMED BY: [place] [address] PATHOLOGIST SCALE MECHANIC JASMEET LIN M.D. Performed By: #### C MP, CBC, HS TROP, TSH3 wRFLX #### [address] Complete Blood Count Auto Di ffon 05-13-2023 Basophils (Bld) [#/Vol] 0.0 10*3/uL Normal 0.0-0.2 [facility] Comment on above: Result Comment: PERF ORMED BY: [place] [address] PATHOLOGIST SCALE MECHANIC JASMEET LIN M.D. Performed By: #### C MP, CBC, HS TROP, TSH3 wRFLX #### [address] Basophils/100 WBC (Bld) 0.4 % Normal . T elin [facility] Comment on above: Performed By: #### C MP, CBC, HS TROP, TSH3 wRFLX #### [address] Eosinophils (Bld) [#/Vol] 0.0 10*3/uL Normal 0.0-0.45 [facility] Comment on above: Performed By: #### C MP, CBC, HS TROP, TSH3 wRFLX #### [address] Eosinophils/100 WBC (Bld) 0.1 % Normal . [facility] Comment on above: Performed By: #### C MP, CBC, HS TROP, TSH3 wRFLX #### [address] Erythrocyte distribution width (RBC) [Ratio] 13.5 % Normal 11.9-15.3 [facility] Comment on above: Performed By: #### C MP, CBC, HS TROP, TSH3 wRFLX #### [address] Hematocrit (Bld) [Volume fraction] 44.7 % Normal 34.0-46.4 [facility] Comment on above: Performed By: #### C MP, CBC, HS TROP, TSH3 wRFLX #### [address] Hemoglobin (Bld) [Mass/Vol] 14.9 g/dL Normal 11.8-15.4 [facility] Comment on above: Performed By: #### C MP, CBC, HS TROP, TSH3 wRFLX #### [address] Lymphocytes (Bld) [#/Vol] 1.4 10*3/uL Normal 1.00-4.8 [facility] Comment on above: Performed By: #### C MP, CBC, HS TROP, TSH3 wRFLX #### [address] Lymphocytes/100 WBC (Bld) 14.2 % Normal . [facility] Comment on above: Performed By: #### C MP, CBC, HS TROP, TSH3 wRFLX #### [address] MCH (RBC) [Entitic mass] 28.4 pg Normal 24.7-34.3 [facility] Comment on above: Performed By: #### C MP, CBC, HS TROP, TSH3 wRFLX #### [address] MCV (RBC) [Entitic vol] 85.1 fL Normal 80-100 T [facility] Comment on above: Performed By: #### C MP, CBC, HS TROP, TSH3 wRFLX #### [address] Mean Corpuscular HGB Conc 33.4 g/dL Normal 32.0-35.0 [facility] Comment on above: Performed By: #### C MP, CBC, HS TROP, TSH3 wRFLX #### [address] Monocytes (Bld) [#/Vol] 0.8 10*3/uL Normal 0.0-0.8 [facility] Comment on above: Performed By: #### C MP, CBC, HS TROP, TSH3 wRFLX #### [place] [address] [place] Monocytes/100 WBC (Bld) 17.56 % Normal 0.00-20.00 [facility] Comment on above: Performed By: #### C MP, CBC, HS TROP, TSH3 wRFLX #### [address] Monocytes/100 WBC (Bld) 7.6 % Normal . [facility] Comment on above: Performed By: #### C MP, CBC, HS TROP, TSH3 wRFLX #### [address] Neutrophils (Bld) [#/Vol] 7.9 10*3/uL High 1.8-7.7 [facility] Comment on above: Performed By: #### C MP, CBC, HS TROP, TSH3 wRFLX #### [address] Neutrophils/100 WBC (Bld) 77.7 % Normal . [facility] Comment on above: Performed By: #### C MP, CBC, HS TROP, TSH3 wRFLX #### [address] NRBC% 0.1 /100{WBC} Normal 0-0.5 [facility] Comment on above: Performed By: #### C MP, CBC, HS TROP, TSH3 wRFLX #### [place] [address] [place] Platelet mean volume (Bld) [Entitic vol] 7.4 fL Normal 6.3-10.7 [facility] Comment on above: Performed By: #### C MP, CBC, HS TROP, TSH3 wRFLX #### [place] [address] [place] Platelets (Bld) [#/Vol] 405 10*3/uL Normal 150-450 [facility] Comment on above: Performed By: #### C MP, CBC, HS TROP, TSH3 wRFLX #### [place] [address] [place] RBC (Bld) [#/Vol] 5.25 10*6/uL High 3.60-5.00 [facility] Comment on above: Performed By: #### C MP, CBC, HS TROP, TSH3 wRFLX #### [address] WBC (Bld) [#/Vol] 10.2 10*3/uL Normal 3.8-11.6 [facility] Comment on above: Performed By: #### C MP, CBC, HS TROP, TSH3 wRFLX #### [address] Comprehensive Metabolic Pane shelby 05-13-2023 Albumin [Mass/Vol] 4.2 g/dL Normal 3.5-5.7 [facility] Comment on above: Performed By: #### C MP, CBC, HS TROP, TSH3 wRFLX #### [address] Albumin/Globulin [Mass ratio] 1.2 {ratio} Normal [facility] Comment on above: Performed By: #### C MP, CBC, HS TROP, TSH3 wRFLX #### [address] ALP [Catalytic activity/Vol] 79 U/L Normal 34-104 [facility] Comment on above: Performed By: #### C MP, CBC, HS TROP, TSH3 wRFLX #### [address] ALT [Catalytic activity/Vol] 15 U/L Normal 7-52 [facility] Comment on above: Performed By: #### C MP, CBC, HS TROP, TSH3 wRFLX #### [address] Anion gap [Moles/Vol] 12.3 mmol/L Normal 6.0-15.0 [facility] Comment on above: Performed By: #### C MP, CBC, HS TROP, TSH3 wRFLX #### [place] [address] [place] AST [Catalytic activity/Vol] 17 U/L Normal 13-39 [facility] Comment on above: Performed By: #### C MP, CBC, HS TROP, TSH3 wRFLX #### [address] Bilirubin [Mass/Vol] 0.3 mg/dL Normal 0.3-1.0 [facility] Comment on above: Performed By: #### C MP, CBC, HS TROP, TSH3 wRFLX #### [address] Calcium [Mass/Vol] 10.0 mg/dL Normal 8.6-10.3 [facility] Comment on above: Performed By: #### C MP, CBC, HS TROP, TSH3 wRFLX #### [address] Chloride [Moles/Vol] 89 mmol/L Low 98-107 [facility] Comment on above: Performed By: #### C MP, CBC, HS TROP, TSH3 wRFLX #### [address] CO2 [Moles/Vol] 41.7 mmol/L High 21.0-31.0 [facility] Comment on above: Performed By: #### C MP, CBC, HS TROP, TSH3 wRFLX #### [address] Creatinine [Mass/Vol] 0.47 mg/dL Low 0.60-1.20 [facility] Comment on above: Performed By: #### C MP, CBC, HS TROP, TSH3 wRFLX #### [address] Creatinine Clr Calc Pharmacy 80.11 Normal [facility] Comment on above: Result Comment: PERF ORMED BY: [place] [address] PATHOLOGIST SCALE MECHANIC JASMEET LIN M.D. Performed By: #### C MP, CBC, HS TROP, TSH3 wRFLX #### [facility] [address] [place] [address] [place] GFR/1.73 sq M.predicted MDRD (S/P/Bld) [Vol rate/Area] mL/min/{1.73_m2} Normal [facility] Comment on above: Performed By: #### C MP, CBC, HS TROP, TSH3 wRFLX #### [facility] [address] [place] [address] [place] Globulin (S) [Mass/Vol] 3.5 g/dL Normal T [facility] Comment on above: Performed By: #### C MP, CBC, HS TROP, TSH3 wRFLX #### [facility] [address] [place] [address] [place] Glucose [Mass/Vol] 104 mg/dL High 70-100 [facility] Comment on above: Result Comment: [place] Glucose Reference Range is dependent on time and content of last meal. Glucose of more than 200 mg/dL in a nonstressed, ambulatory subject supports the diagnosis of Diabetes Mellitus. ADA recommended reference range Performed By: #### C MP, CBC, HS TROP, TSH3 wRFLX #### [facility] [address] [place] [address] [place] Potassium [Moles/Vol] 4.0 mmol/L Normal 3.5-5.1 [facility] Comment on above: Performed By: #### C MP, CBC, HS TROP, TSH3 wRFLX #### [facility] [address] [place] [address] [place] Protein [Mass/Vol] 7.7 g/dL Normal 6.4-8.9 [facility] Comment on above: Performed By: #### C MP, CBC, HS TROP, TSH3 wRFLX #### [facility] [address] [place] [address] [place] Sodium [Moles/Vol] 139 mmol/L Normal 136-145 [facility] Comment on above: Performed By: #### C MP, CBC, HS TROP, TSH3 wRFLX #### [facility] [address] [place] [address] [place] Urea nitrogen [Mass/Vol] 13 mg/dL Normal 7-25 [facility] Comment on above: Performed By: #### C MP, CBC, HS TROP, TSH3 wRFLX #### [facility] [address] [place] [address] [place] ECG 12 lead ECGon 05-13-2023 ECG 12 lead ECG [facility] Main [place] [address] [place] [id number] Electrocardiograph Report Signed Patient: Cinthia Guerrero MR#: [id number] 881 : 1960 Acct:[id number] Age/Sex: 62 / F ADM Date: 05/13/23 [...] variant artifact Confirmed by Kd Carver DO ([id number]) on 05/13/2023 7:17:32 PM Referred By: Electronically Signed By:Kd Carver DO Transcribed By: MUS Signed By Kd Carver DO 1916 Normal [facility] Thyroid Stim Hormone w/Rflxo n 05-13-2023 Thyroid Stim Hormone w/Rflx 0.89 u[iU]/mL Normal 0.45-5.33 [facility] Comment on above: Result Comment: PERF ORMED BY: [place] [address] PATHOLOGIST SCALE MECHANIC JASMEET LIN M.D. Performed By: #### C MP, CBC, HS TROP, TSH3 wRFLX #### [address] [address] [place] Troponin I High Sensitivityo n 05-13-2023 Troponin I High Sensitivity 3.4 pg/mL Normal 0.0-15.0 [facility] Comment on above: Result Comment: PERF ORMED BY: [place] [address] PATHOLOGIST SCALE MECHANIC JASMEET LIN M.D. Performed By: #### H S TROP #### [facility] [address] [place] [address] Troponin I High Sensitivity 3.9 pg/mL Normal 0.0-15.0 [facility] Comment on above: Result Comment: PERF ORMED BY: [place] [address] PATHOLOGIST SCALE MECHANIC JASMEET LIN M.D. Performed By: #### C MP, CBC, HS TROP, TSH3 wRFLX #### [address] XR chest 2V*on 05-13-2023 XR chest 2V* [facility] [place] [address] [place] [address] XRay Report Signed Patient: Cinthia Guerrero MR#: [id number] 881 : 1960 Acct:[id number] Age/Sex: 62 / F ADM Date: 05/13/23 Loc: ER Room: Type: [facility] Attending Dr: Copies to: Stacia Garcia MD [...] Wong Byrd M.D.05/13/2023 8:53 PM Dictation Location: [place] [address] Transcribed By: MARCELLE 05/13/232052 Dictated By: CarsonWong S DO 05/13/232051 Signed By: 05/13/232052 Normal [facility] CULTURE BLOODon 09-07-2022 Microscopic examination of blood, [...] F Trimethoprim/Sulfameth oxazole 20 S F Normal [facility] Comment on above: Performed By: #### B LDCX1 #### [facility] [address] [place] [address] Dr. Geri Pradhan CBC AUTO DIFFon 09-05-2022 BASO # 0.0 103/ul Normal 0.0-0.1 [facility] Comment on above: Performed By: #### C BC #### [facility] [address] [place] [address] Dr. Geri Pradhan Basophils/100 WBC (Bld) 0.2 % Normal 0.2-2.0 [facility] Comment on above: Performed By: #### C BC #### [facility] [address] [place] [address] Dr. Geri Pradhan EO # 0.0 103/ul Normal 0.0-0.7 [facility] Comment on above: Performed By: #### C BC #### [facility] [address] [place] [address] Dr. Geri Pradhan Eosinophils/100 WBC (Bld) 0.0 % Critically low 0.9-7.0 [facility] Comment on above: Performed By: #### C BC #### [facility] [address] [place] [address] Dr. Geri Pradhan Erythrocyte distribution width (RBC) [Ratio] 13.8 % Normal 11.0-15.0 [facility] Comment on above: Performed By: #### C BC #### [facility] [address] [place] [address] Dr. Geri Pradhan Hematocrit (Bld) [Volume fraction] 38.8 % Normal 36.0-48.0 [facility] Comment on above: Performed By: #### C BC #### [facility] [address] [place] [address] Dr. Geri Pradhan Hemoglobin (Bld) [Mass/Vol] 11.7 g/dL Critically low 12.0-16.0 [facility] Comment on above: Performed By: #### C BC #### [facility] [address] [place] [address] Dr. Geri Pradhan IG # 0.27 10e3/ul Critically high 0.00-0.03 [facility] Comment on above: Performed By: #### C BC #### [facility] [address] [place] [address] Dr. Geri Pradhan IG % 2.9 % Critically high 0.0-0.5 [facility] Comment on above: Performed By: #### C BC #### [facility] [address] [place] [address] Dr. Geri Pradhan LYMPH # 0.4 103/ul Critically low 1.2-3.8 [facility] Comment on above: Performed By: #### C BC #### [facility] [address] [place] [address] Dr. Geri Pradhan Lymphocytes/100 WBC (Bld) 4.4 % Critically low 20.5-60.0 [facility] Comment on above: Performed By: #### C BC #### [facility] [address] [place] [address] Dr. Geri Pradhan MANUAL DIFF REQ NO Normal [facility] Comment on above: Performed By: #### C BC #### [facility] [address] [address] [address] Geri Pradhan MCH (RBC) [Entitic mass] 26.8 pg Normal 26.7-34.0 [facility] Comment on above: Performed By: #### C BC #### [facility] [address] [place] [address] Dr. Geri Pradhan MCHC (RBC) [Mass/Vol] 30.2 g/dL Normal 29.9-35.2 [facility] Comment on above: Performed By: #### C BC #### [facility] [address] [place] [address] Dr. Geri Pradhan MCV (RBC) [Entitic vol] 88.8 fL Normal 81.0-99.0 [facility] Comment on above: Performed By: #### C BC #### [facility] [address] [place] [address] Dr. Geri Pradhan MONO # 0.3 103/ul Normal 0.3-0.8 [facility] Comment on above: Performed By: #### C BC #### [facility] [address] [place] [address] Dr. Geri Pradhan Monocytes/100 WBC (Bld) 3.6 % Normal 1.7-12.0 [facility] Comment on above: Performed By: #### C BC #### [facility] [address] [place] [address] Dr. Geri Pradhan NEUT # 8.2 103/ul Critically high 1.4-6.5 [facility] Comment on above: Performed By: #### C BC #### [facility] [address] [place] [address] Dr. Geri Pradhan Neutrophils/100 WBC (Bld) 88.9 % Critically high 43.0-75.0 [facility] Comment on above: Performed By: #### C BC #### [facility] [address] [place] [address] Dr. Geri Pradhan Platelet mean volume (Bld) [Entitic vol] 9.1 fL Critically low 9.5-13.5 [facility] Comment on above: Performed By: #### C BC #### [facility] [address] [address] [address] Geri Pradhan PLT 314 103/ul Normal 150-450 [facility] Comment on above: Performed By: #### C BC #### [facility] [address] [place] [address] Dr. Geri Pradhan RBC 4.37 106/ul Normal 4.20-5.40 [facility] Comment on above: Performed By: #### C BC #### [facility] [address] [place] [address] Dr. Geri Pradhan WBC 9.2 103/ul Normal 4.0-11.0 [facility] Comment on above: Performed By: #### C BC #### [facility] [address] [place] [address] Dr. Geri Pradhan PROF 14(COMP METB)on 023 Albumin [Mass/Vol] 2.7 g/dL Critically low 3.4-5.0 [facility] Comment on above: Performed By: #### Gerry INGRAM, CMP #### [facility] [address] [place] [address] Dr. Geri Pradhan Albumin/Globulin [Mass ratio] 0.7 {ratio} [facility] Comment on above: Performed By: #### Gerry INGRAM, CMP #### [facility] [address] [place] [address] Dr. Geri Pradhan ALP [Catalytic activity/Vol] 65 U/L Normal 46-116 [facility] Comment on above: Performed By: #### Gerry INGRAM, CMP #### [facility] [address] [place] [address] Dr. Geri Pradhan ALT [Catalytic activity/Vol] 23 U/L Normal 14-59 [facility] Comment on above: Performed By: #### Gerry INGRAM, CMP #### [facility] [address] [place] [address] Dr. Geri Pradhan Anion gap [Moles/Vol] 2.0 mmol/L Normal [facility] Comment on above: Performed By: #### Gerry INGRAM, CMP #### [facility] [address] [address] [address] Geri Pradhan AST [Catalytic activity/Vol] 17 U/L Normal 15-37 [facility] Comment on above: Performed By: #### Gerry INGRAM, CMP #### [facility] [address] [address] [address] Geri Pradhan Bilirubin [Mass/Vol] 0.1 mg/dL Critically low 0.2-1.0 [facility] Comment on above: Performed By: #### Gerry INGRAM, CMP #### [facility] [address] [address] [address] Geri Pradhan Calcium [Mass/Vol] 9.0 mg/dL Normal 8.5-10.1 [facility] Comment on above: Performed By: #### Gerry INGRAM, CMP #### [facility] [address] [place] [address] Dr. Geri Pradhan Chloride [Moles/Vol] 99 mmol/L Normal 98-107 [facility] Comment on above: Performed By: #### Gerry INGRAM, CMP #### [facility] [address] [address] [address] Geri Pradhan CO2 [Moles/Vol] 45.3 mmol/L Critically high 21.0-32.0 [facility] Comment on above: Performed By: #### Gerry INGRAM, CMP #### [facility] [address] [place] [address] Dr. Geri Pradhan Creatinine [Mass/Vol] 0.50 mg/dL Critically low 0.55-1.02 [facility] Comment on above: Performed By: #### Gerry INGRAM, CMP #### [facility] [address] [place] [address] Dr. Geri Pradhan EGFR-AF SERBIAN >60 Normal >=60 [facility] Comment on above: Performed By: #### Gerry INGRAM, CMP #### [facility] [address] [address] [address] Geri Pradhan EGFR-NON AF SERBIAN >60 Normal >=60 [facility] Comment on above: Performed By: #### Gerry INGRAM, CMP #### [facility] [address] [address] [address] Geri Pradhan Globulin (S) [Mass/Vol] 3.7 g/dL Normal [facility] Comment on above: Performed By: #### Gerry INGRAM, CMP #### [facility] [address] [address] [address] Geri Pradhan Glucose [Mass/Vol] 180 mg/dL Critically high 74-106 [facility] Comment on above: Performed By: #### Gerry INGRAM, CMP #### [facility] [address] [address] [address] Geri Pradhan Potassium [Moles/Vol] 4.3 mmol/L Normal 3.5-5.1 [facility] Comment on above: Performed By: #### Gerry INGRAM, CMP #### [facility] [address] [place] [address] Dr. Geri Pradhan Protein [Mass/Vol] 6.4 g/dL Normal 6.4-8.2 [facility] Comment on above: Performed By: #### Gerry INGRAM, CMP #### [facility] [address] [place] [address] Dr. Geri Pradhan Sodium [Moles/Vol] 142 mmol/L Normal 136-145 [facility] Comment on above: Performed By: #### Gerry INGRAM, CMP #### [facility] [address] [place] [address] Dr. Geri Pradhan Urea nitrogen [Mass/Vol] 13.0 mg/dL Normal 7.0-18.0 [facility] Comment on above: Performed By: #### Gerry INGRAM, CMP #### [facility] [address] [place] [address] Dr. Geri Pradhan Urea nitrogen/Creatinine [Mass ratio] 26.0 mg/mg Normal [facility] Comment on above: Performed By: #### Gerry INGRAM, CMP #### [facility] [address] [place] [address] Dr. Geri Pradhan THEOPHYLLINEon 09-05-2022 THEOPHYLLINE <2.0 Critically low 10.0-20.0 [facility] Comment on above: Performed By: #### T JUAN JOSE, CMP #### [facility] [address] [place] [address] Dr. Geri Pradhan CBC AUTO DIFFon 09-04-2022 BASO # 0.0 103/ul Normal 0.0-0.1 [facility] Comment on above: Performed By: #### R SPLUS #### [facility] [address] [place] [address] Dr. Geri Pradhan Basophils/100 WBC (Bld) 0.1 % Critically low 0.2-2.0 [facility] Comment on above: Performed By: #### R SPLUS #### [facility] [address] [place] [address] Dr. Geri Pradhan EO # 0.0 103/ul Normal 0.0-0.7 [facility] Comment on above: Performed By: #### R SPLUS #### [facility] [address] [place] [address] Dr. Geri Pradhan Eosinophils/100 WBC (Bld) 0.0 % Critically low 0.9-7.0 [facility] Comment on above: Performed By: #### R SPLUS #### [facility] [address] [place] [address] Dr. Geri Pradhan Erythrocyte distribution width (RBC) [Ratio] 13.4 % Normal 11.0-15.0 [facility] Comment on above: Performed By: #### R SPLUS #### [facility] [address] [place] [address] Dr. Geri Pradhan Hematocrit (Bld) [Volume fraction] 42.8 % Normal 36.0-48.0 [facility] Comment on above: Performed By: #### R SPLUS #### [facility] [address] [place] [address] Dr. Geri Pradhan Hemoglobin (Bld) [Mass/Vol] 12.8 g/dL Normal 12.0-16.0 [facility] Comment on above: Performed By: #### R SPLUS #### [facility] [address] [place] [address] Dr. Geri Pradhan IG # 0.25 10e3/ul Critically high 0.00-0.03 [facility] Comment on above: Performed By: #### R SPLUS #### [facility] [address] [place] [address] Dr. Geri Pradhan IG % 2.0 % Critically high 0.0-0.5 [facility] Comment on above: Performed By: #### R SPLUS #### [facility] [address] [place] [address] Dr. Geri Pradhan LYMPH # 0.4 103/ul Critically low 1.2-3.8 [facility] Comment on above: Performed By: #### R SPLUS #### [facility] [address] [place] [address] Dr. Geri Pradhan Lymphocytes/100 WBC (Bld) 3.6 % Critically low 20.5-60.0 [facility] Comment on above: Performed By: #### R SPLUS #### [facility] [address] [place] [address] Dr. Geri Pradhan MANUAL DIFF REQ NO Normal [facility] Comment on above: Performed By: #### R SPLUS #### [facility] [address] [place] [address] Dr. Geri Pradhan MCH (RBC) [Entitic mass] 26.8 pg Normal 26.7-34.0 [facility] Comment on above: Performed By: #### R SPLUS #### [facility] [address] [place] [address] Dr. Geri Pradhan MCHC (RBC) [Mass/Vol] 29.9 g/dL Normal 29.9-35.2 [facility] Comment on above: Performed By: #### R SPLUS #### [facility] [address] [place] [address] Dr. Geri Pradhan MCV (RBC) [Entitic vol] 89.5 fL Normal 81.0-99.0 [facility] Comment on above: Performed By: #### R SPLUS #### [facility] [address] [place] [address] Dr. Geri Pradhan MONO # 0.2 103/ul Critically low 0.3-0.8 [facility] Comment on above: Performed By: #### R SPLUS #### [facility] [address] [place] [address] Dr. Geri Pradhan Monocytes/100 WBC (Bld) 1.9 % Normal 1.7-12.0 [facility] Comment on above: Performed By: #### R SPLUS #### [facility] [address] [place] [address] Dr. Geri Pradhan NEUT # 11.4 103/ul Critically high 1.4-6.5 [facility] Comment on above: Performed By: #### R SPLUS #### [facility] [address] [place] [address] Dr. Geri Pradhan Neutrophils/100 WBC (Bld) 92.4 % Critically high 43.0-75.0 [facility] Comment on above: Performed By: #### R SPLUS #### [facility] [address] [place] [address] Dr. Geri Pradhan Platelet mean volume (Bld) [Entitic vol] 8.9 fL Critically low 9.5-13.5 [facility] Comment on above: Performed By: #### R SPLUS #### [facility] [address] [place] [address] Dr. Geri Pradhan PLT 350 103/ul Normal 150-450 [facility] Comment on above: Performed By: #### R SPLUS #### [facility] [address] [place] [address] Dr. Geri Pradhan RBC 4.78 106/ul Normal 4.20-5.40 [facility] Comment on above: Performed By: #### R SPLUS #### [facility] [address] [place] [address] Dr. Geri Pradhan WBC 12.3 103/ul Critically high 4.0-11.0 [facility] Comment on above: Performed By: #### R SPLUS #### [facility] [address] [place] [address] Dr. Geri Pradhan POINT OF CARE GLUCOSEon 08-12 Glucose [Mass/Vol] 142 mg/dL Critically high 74-106 [facility] Comment on above: Performed By: #### P OCGLUC #### [facility] [address] [place] [address] Dr. Geri Pradhan Glucose [Mass/Vol] 198 mg/dL Critically high 74-106 [facility] Comment on above: Performed By: #### Gerry INGRAM, CMP #### [facility] [address] [address] [address] Geri Pradhan Glucose [Mass/Vol] 147 mg/dL Critically high 74-106 [facility] Comment on above: Performed By: #### Gerry INGRAM, CMP #### [facility] [address] [place] [address] Dr. Geri Pradhan PROF 14(COMP METB)on 023 Albumin [Mass/Vol] 2.9 g/dL Critically low 3.4-5.0 [facility] Comment on above: Performed By: #### Gerry INGRAM, CMP #### [facility] [address] [place] [address] Dr. Geri Pradhan Albumin/Globulin [Mass ratio] 0.7 {ratio} Normal [facility] Comment on above: Performed By: #### Gerry INGRAM, CMP #### [facility] [address] [place] [address] Dr. Geri Pradhan ALP [Catalytic activity/Vol] 73 U/L Normal 46-116 [facility] Comment on above: Performed By: #### Gerry INGRAM, CMP #### [facility] [address] [place] [address] Dr. Geri Pradhan ALT [Catalytic activity/Vol] 24 U/L Normal 14-59 [facility] Comment on above: Performed By: #### Gerry INGRAM, CMP #### [facility] [address] [place] [address] Dr. Geri Pradhan Anion gap [Moles/Vol] 3.2 mmol/L Normal [facility] Comment on above: Performed By: #### Gerry INGRAM, CMP #### [facility] [address] [place] [address] Dr. Geri Pradhan AST [Catalytic activity/Vol] 17 U/L Normal 15-37 [facility] Comment on above: Performed By: #### Gerry INGRAM, CMP #### [facility] [address] [address] [address] Geri Pradhan Bilirubin [Mass/Vol] 0.1 mg/dL Critically low 0.2-1.0 [facility] Comment on above: Performed By: #### Gerry INGRAM, CMP #### [facility] [address] [place] [address] Dr. Geri Pradhan Calcium [Mass/Vol] 9.4 mg/dL Normal 8.5-10.1 [facility] Comment on above: Performed By: #### Gerry INGRAM, CMP #### [facility] [address] [place] [address] Dr. Geri Pradhan Chloride [Moles/Vol] 100 mmol/L Normal 98-107 [facility] Comment on above: Performed By: #### Gerry INGRAM, CMP #### [facility] [address] [place] [address] Dr. Geri Pradhan CO2 [Moles/Vol] 43.2 mmol/L Critically high 21.0-32.0 [facility] Comment on above: Performed By: #### Gerry INGRAM, CMP #### [facility] [address] [place] [address] Dr. Geri Pradhan Creatinine [Mass/Vol] 0.52 mg/dL Critically low 0.55-1.02 [facility] Comment on above: Performed By: #### Gerry INGRAM, CMP #### [facility] [address] [place] [address] Dr. Geri Pradhan EGFR-AF SERBIAN >60 Normal >=60 [facility] Comment on above: Performed By: #### Gerry INGRAM, CMP #### [facility] [address] [place] [address] Dr. Geri Pradhan EGFR-NON AF SERBIAN >60 Normal >=60 [facility] Comment on above: Performed By: #### Gerry INGRAM, CMP #### [facility] [address] [place], [place] [id number] Dr. Geri Pradhan Globulin (S) [Mass/Vol] 4.2 g/dL Normal [facility] Comment on above: Performed By: #### Gerry INGRAM, CMP #### [facility] [address] [place] [address] Dr. Geri Pradhan Glucose [Mass/Vol] 138 mg/dL Critically high 74-106 [facility] Comment on above: Performed By: #### Gerry INGRAM, CMP #### [facility] [address] [place] [address] Dr. Geri Pradhan Potassium [Moles/Vol] 4.4 mmol/L Normal 3.5-5.1 [facility] Comment on above: Performed By: #### Gerry INGRAM, CMP #### [facility] [address] [place] [address] Dr. Geri Pradhan Protein [Mass/Vol] 7.1 g/dL Normal 6.4-8.2 [facility] Comment on above: Performed By: #### Gerry INGRAM, CMP #### [facility] [address] [place] [address] Dr. Geri Pradhan Sodium [Moles/Vol] 142 mmol/L Normal 136-145 [facility] Comment on above: Performed By: #### Gerry INGRAM, CMP #### [facility] [address] [place] [address] Dr. Geri Pradhan Urea nitrogen [Mass/Vol] 15.0 mg/dL Normal 7.0-18.0 [facility] Comment on above: Performed By: #### Gerry INGRAM, CMP #### [facility] [address] [place] [address] Dr. Geri Pradhan Urea nitrogen/Creatinine [Mass ratio] 28.8 mg/mg Normal [facility] Comment on above: Performed By: #### Gerry INGRAM, CMP #### [facility] [address] [place] [address] Dr. Geri Pradhan RESPIRATORY PANEL PLUSon Adenovirus Not detected Normal NOT DETECTED [facility] Comment on above: Performed By: #### R SPLUS #### [facility] [address] [place] [address] Dr. Geri Bourne Parapertusis Not detected Normal NOT DETECTED [facility] Comment on above: Performed By: #### R SPLUS #### [facility] [address] [place] [address] Dr. Geri Bourne Pertussis Not detected Normal NOT DETECTED [facility] Comment on above: Performed By: #### R SPLUS #### [facility] [address] [place] [address] Dr. Geri Pradhan Chlamydia Pneumoniae Not detected Normal NOT DETECTED [facility] Comment on above: Performed By: #### R SPLUS #### [facility] [address] [place] [address] Dr. Geri Pradhan Coronavirus 229E Not detected Normal NOT DETECTED [facility] Comment on above: Performed By: #### R SPLUS #### [facility] [address] [place] [address] Dr. Geri Pradhan Coronavirus HKU1 Not detected Normal NOT DETECTED [facility] Comment on above: Performed By: #### R SPLUS #### [facility] [address] [place] [address] Dr. Geri Pradhan Coronavirus NL63 Not detected Normal NOT DETECTED [facility] Comment on above: Performed By: #### R SPLUS #### [facility] [address] [place] [address] Dr. Geri Pradhan Coronavirus OC43 Not detected Normal NOT DETECTED [facility] Comment on above: Performed By: #### R SPLUS #### [facility] [address] [place] [address] Dr. Geri Pradhan Influenza A H1 Not detected Normal NOT DETECTED [facility] Comment on above: Performed By: #### R SPLUS #### [facility] [address] [place] [address] Dr. Geri Pradhan Influenza A H1 2009 Not detected Normal NOT DETECTED [facility] Comment on above: Performed By: #### R SPLUS #### [facility] [address] [place] [address] Dr. Geri Pradhan Influenza A H3 Not detected Normal NOT DETECTED [facility] Comment on above: Performed By: #### R SPLUS #### [facility] [address] [place] [address] Dr. Geri Pradhan Influenza B Not detected Normal NOT DETECTED [facility] Comment on above: Performed By: #### R SPLUS #### [facility] [address] [place] [address] Dr. Geri Pradhan Metapneumovirus Not detected Normal NOT DETECTED [facility] Comment on above: Performed By: #### R SPLUS #### [facility] [address] [place] [address] Dr. Geri Pradhan Mycoplas. Pneumoniae Not detected Normal NOT DETECTED [facility] Comment on above: Performed By: #### R SPLUS #### [facility] [address] [place] [address] Dr. Geri Pradhan Parainfluenza 1 Not detected Normal NOT DETECTED [facility] Comment on above: Performed By: #### R SPLUS #### [facility] [address] [place] [address] Dr. Geri Pradhan Parainfluenza 2 Not detected Normal NOT DETECTED [facility] Comment on above: Performed By: #### R SPLUS #### [facility] [address] [place] [address] Dr. Geri Pradhan Parainfluenza 3 Detected Abnormal NOT DETECTED [facility] Comment on above: Performed By: #### R SPLUS #### [facility] [address] [place] [address] Dr. Geri Pradhan Parainfluenza 4 Not detected Normal NOT DETECTED [facility] Comment on above: Performed By: #### R SPLUS #### [facility] [address] [place] [address] Dr. Geri Pradhan Rhino/Enterovirus Not detected Normal NOT DETECTED [facility] Comment on above: Performed By: #### R SPLUS #### [facility] [address] [place] [address] Dr. Geri Pradhan RP2 Header 1 RESPIRATORY PANEL: VIRUSES Normal [facility] Comment on above: Performed By: #### R SPLUS #### [facility] [address] [place] [address] Dr. Geri Pradhan RP2 Header 2 RESPIRATORY PANEL: BACTERIA Normal [facility] Comment on above: Performed By: #### R SPLUS #### [facility] [address] [place] [address] Dr. Geri Pradhan RSV Not detected Normal NOT DETECTED [facility] Comment on above: Performed By: #### R SPLUS #### [facility] [address] [place] [address] Dr. Geri Pradhan SARS-CoV-2 (COVID-19) RNA KRUNAL+probe Ql (Unsp spec) Not detected Normal NOT DETECTED [facility] Comment on above: Performed By: #### R SPLUS #### [facility] [address] [place] [address] Dr. Geri Pradhan THEOPHYLLINEon 09-04-2022 THEOPHYLLINE <2.0 Critically low 10.0-20.0 [facility] Comment on above: Performed By: #### T JUAN JOSE, CMP #### [facility] [address] [place] [address] Dr. Geri Pradhan CBC AUTO DIFFon 09-03-2022 BASO # 0.0 103/ul Normal 0.0-0.1 [facility] Comment on above: Performed By: #### P OCGLUC #### [facility] [address] [place] [address] Dr. Geri Pradhan Basophils/100 WBC (Bld) 0.1 % Critically low 0.2-2.0 [facility] Comment on above: Performed By: #### P OCGLUC #### [facility] [address] [place] [address] Dr. Geri Pradhan EO # 0.0 103/ul Normal 0.0-0.7 [facility] Comment on above: Performed By: #### P OCGLUC #### [facility] [address] [place] [address] Dr. Geri Pradhan Eosinophils/100 WBC (Bld) 0.0 % Critically low 0.9-7.0 [facility] Comment on above: Performed By: #### P OCGLUC #### [facility] [address] [address] [address] Geri Pradhan Erythrocyte distribution width (RBC) [Ratio] 13.0 % Normal 11.0-15.0 [facility] Comment on above: Performed By: #### P OCGLUC #### [facility] [address] [place] [address] Dr. Geri Pradhan Hematocrit (Bld) [Volume fraction] 42.1 % Normal 36.0-48.0 [facility] Comment on above: Performed By: #### P OCGLUC #### [facility] [address] [place] [address] Dr. Geri Pradhan Hemoglobin (Bld) [Mass/Vol] 12.3 g/dL Normal 12.0-16.0 [facility] Comment on above: Performed By: #### P OCGLUC #### [facility] [address] [place] [address] Dr. Geri Pradhan IG # 0.13 10e3/ul Critically high 0.00-0.03 [facility] Comment on above: Performed By: #### P OCGLUC #### [facility] [address] [place] [address] Dr. Geri Pradhan IG % 1.2 % Critically high 0.0-0.5 [facility] Comment on above: Performed By: #### P OCGLUC #### [facility] [address] [place] [address] Dr. Geri Pradhan LYMPH # 0.6 103/ul Critically low 1.2-3.8 [facility] Comment on above: Performed By: #### P OCGLUC #### [facility] [address] [place] [address] Dr. Geri Pradhan Lymphocytes/100 WBC (Bld) 6.0 % Critically low 20.5-60.0 [facility] Comment on above: Performed By: #### P OCGLUC #### [facility] [address] [place] [address] Dr. Geri Pradhan MANUAL DIFF REQ NO Normal [facility] Comment on above: Performed By: #### P OCGLUC #### [facility] [address] [address] [address] Geri Pradhan MCH (RBC) [Entitic mass] 26.0 pg Critically low 26.7-34.0 [facility] Comment on above: Performed By: #### P OCGLUC #### [facility] [address] [place] [address] Dr. Geri Pradhan MCHC (RBC) [Mass/Vol] 29.2 g/dL Critically low 29.9-35.2 [facility] Comment on above: Performed By: #### P OCGLUC #### [facility] [address] [place] [address] Dr. Geri Pradahn MCV (RBC) [Entitic vol] 89.0 fL Normal 81.0-99.0 [facility] Comment on above: Performed By: #### P OCGLUC #### [facility] [address] [place] [address] Dr. Geri Pradhan MONO # 0.2 103/ul Critically low 0.3-0.8 [facility] Comment on above: Performed By: #### P OCGLUC #### [facility] [address] [place] [address] Dr. Geri Pradhan Monocytes/100 WBC (Bld) 2.0 % Normal 1.7-12.0 [facility] Comment on above: Performed By: #### P OCGLUC #### [facility] [address] [place] [address] Dr. Geri Pradhan NEUT # 9.6 103/ul Critically high 1.4-6.5 [facility] Comment on above: Performed By: #### P OCGLUC #### [facility] [address] [place] [address] Dr. Geri Pradhan Neutrophils/100 WBC (Bld) 90.7 % Critically high 43.0-75.0 [facility] Comment on above: Performed By: #### P OCGLUC #### [facility] [address] [place] [address] Dr. Geri Pradhan Platelet mean volume (Bld) [Entitic vol] 9.1 fL Critically low 9.5-13.5 [facility] Comment on above: Performed By: #### P OCGLUC #### [facility] [address] [address] [address] Geri Pradhan PLT 302 103/ul Normal 150-450 [facility] Comment on above: Performed By: #### P OCGLUC #### [facility] [address] [address] [address] Geri Pradhan RBC 4.73 106/ul Normal 4.20-5.40 [facility] Comment on above: Performed By: #### P OCGLUC #### [facility] [address] [address] [address] Geri Pradhan WBC 10.6 103/ul Normal 4.0-11.0 [facility] Comment on above: Performed By: #### P OCGLUC #### [facility] [address] [address] [address] Geri Pradhan POINT OF CARE GLUCOSEon 08-12 Glucose [Mass/Vol] 130 mg/dL Critically high 74-106 [facility] Comment on above: Performed By: #### Gerry INGRAM CMP #### [facility] [address] [address] [address] Geri Pradhan Glucose [Mass/Vol] 217 mg/dL Critically high 74-106 [facility] Comment on above: Performed By: #### Gerry INGRAM CMP #### [facility] [address] [address] [address] Geri Pradhan Glucose [Mass/Vol] 327 mg/dL Critically high 74-106 [facility] Comment on above: Performed By: #### C VDTBH #### [facility] [address] [address] [address] Geri Pradhan Glucose [Mass/Vol] 146 mg/dL Critically high -106 [facility] Comment on above: Performed By: #### Gerry INGRAM, CMP #### [facility] [address] [address] [address] Geri Pradhan Glucose [Mass/Vol] 174 mg/dL Critically high 74-106 [facility] Comment on above: Performed By: #### T JUAN JOSE, CMP #### [facility] [address] [address] [address] Geri Pradhan PROF 14(COMP METB)on 023 Albumin [Mass/Vol] 2.9 g/dL Critically low 3.4-5.0 [facility] Comment on above: Performed By: #### P OCGLUC #### [facility] [address] [address] [address] Geri Pradhan Albumin/Globulin [Mass ratio] 0.7 {ratio} Normal [facility] Comment on above: Performed By: #### P OCGLUC #### [facility] [address] [address] [address] Geri Pradhan ALP [Catalytic activity/Vol] 74 U/L Normal 46-116 [facility] Comment on above: Performed By: #### P OCGLUC #### [facility] [address] [address] [address] Geri Pradhan ALT [Catalytic activity/Vol] 21 U/L Normal 14-59 [facility] Comment on above: Performed By: #### P OCGLUC #### [facility] [address] [address] [address] Geri Pradhan Anion gap [Moles/Vol] 4.4 mmol/L Normal [facility] Comment on above: Performed By: #### P OCGLUC #### [facility] [address] [address] [address] Geri Pradhan AST [Catalytic activity/Vol] 17 U/L Normal 15-37 [facility] Comment on above: Performed By: #### P OCGLUC #### [facility] [address] [address] [address] Geri Pradhan Bilirubin [Mass/Vol] 0.2 mg/dL Normal 0.2-1.0 [facility] Comment on above: Performed By: #### P OCGLUC #### [facility] [address] [address] [address] Geri Pradhan Calcium [Mass/Vol] 9.4 mg/dL Normal 8.5-10.1 [facility] Comment on above: Performed By: #### P OCGLUC #### [facility] [address] [address] [address] Geri Pradhan Chloride [Moles/Vol] 99 mmol/L Normal 98-107 [facility] Comment on above: Performed By: #### P OCGLUC #### [facility] [address] [address] [address] Geri Pradhan CO2 [Moles/Vol] 42.8 mmol/L Critically high 21.0-32.0 [facility] Comment on above: Performed By: #### P OCGLUC #### [facility] [address] [address] [address] Geri Pradhan Creatinine [Mass/Vol] 0.55 mg/dL Normal 0.55-1.02 [facility] Comment on above: Performed By: #### P OCGLUC #### [facility] [address] [address] [address] Geri Pradhan EGFR-AF SERBIAN >60 Normal >=60 [facility] Comment on above: Performed By: #### P OCGLUC #### [facility] [address] [address] [address] Geri Pradhan EGFR-NON AF SERBIAN >60 Normal >=60 [facility] Comment on above: Performed By: #### P OCGLUC #### [facility] [address] [address] [address] Geri Pradhan Globulin (S) [Mass/Vol] 4.4 g/dL Normal [facility] Comment on above: Performed By: #### P OCGLUC #### [facility] [address] [address] [address] Geri Pradhan Glucose [Mass/Vol] 136 mg/dL Critically high 74-106 [facility] Comment on above: Performed By: #### P OCGLUC #### [facility] [address] [address] [address] Geri Pradhan Potassium [Moles/Vol] 4.2 mmol/L Normal 3.5-5.1 [facility] Comment on above: Performed By: #### P OCGLUC #### [facility] [address] [address] [address] Geri Pradhan Protein [Mass/Vol] 7.3 g/dL Normal 6.4-8.2 [facility] Comment on above: Performed By: #### P OCGLUC #### [facility] [address] [address] [address] Geri Pradhan Sodium [Moles/Vol] 142 mmol/L Normal 136-145 [facility] Comment on above: Performed By: #### P OCGLUC #### [facility] [address] [address] [address] Geri Pradhan Urea nitrogen [Mass/Vol] 14.0 mg/dL Normal 7.0-18.0 [facility] Comment on above: Performed By: #### P OCGLUC #### [facility] [address] [address] [address] Geri Pradhan Urea nitrogen/Creatinine [Mass ratio] 25.5 mg/mg Normal [facility] Comment on above: Performed By: #### P OCGLUC #### [facility] [address] [address] [address] Geri Pradhan THEOPHYLLINEon 09-03-2022 THEOPHYLLINE <2.0 Critically low 10.0-20.0 [facility] Comment on above: Performed By: #### P OCGLUC #### [facility] [address] [address] [address] Geri Pradhan MAGNESIUMon 09-02-2022 Magnesium [Mass/Vol] 2.3 mg/dL Normal 1.8-2.4 [facility] Comment on above: Performed By: #### T JUAN JOSE, CMP #### [facility] [address] [address] [address] Geri Pradhan POINT OF CARE GLUCOSEon 08-12 Glucose [Mass/Vol] 118 mg/dL Critically high 74-106 [facility] Comment on above: Performed By: #### R SPLUS #### [facility] [address] [address] [address] Geri Pradhan Glucose [Mass/Vol] 263 mg/dL Critically high 74-106 [facility] Comment on above: Performed By: #### R SPLUS #### [facility] [address] [address] [address] Geri Pradhan Glucose [Mass/Vol] 160 mg/dL Critically high 74-106 [facility] Comment on above: Performed By: #### P OCGLUC #### [facility] [address] [place] [address] Dr. Geri Pradhan PROF CHEM 8 (BAS METB)on Anion gap [Moles/Vol] 5.3 mmol/L Normal [facility] Comment on above: Performed By: #### Gerry INGRAM CMP #### [facility] [address] [place] [address] Dr. Geri Pradhan Calcium [Mass/Vol] 9.5 mg/dL Normal 8.5-10.1 [facility] Comment on above: Performed By: #### Gerry INGRAM CMP #### [facility] [address] [place] [address] Dr. Geri Pradhan Chloride [Moles/Vol] 94 mmol/L Critically low 98-107 [facility] Comment on above: Performed By: #### Gerry INGRAM CMP #### [facility] [address] [place] [address] Dr. Geri Pradhan CO2 [Moles/Vol] 42.5 mmol/L Critically high 21.0-32.0 [facility] Comment on above: Performed By: #### Gerry INGRAM, CMP #### [facility] [address] [place] [address] Dr. Geri Pradhan Creatinine [Mass/Vol] 0.66 mg/dL Normal 0.55-1.02 [facility] Comment on above: Performed By: #### Gerry INGRAM, CMP #### [facility] [address] [place] [address] Dr. Geri Pradhan EGFR-AF SERBIAN >60 Normal >=60 [facility] Comment on above: Performed By: #### Gerry INGRAM, CMP #### [facility] [address] [place] [address] Dr. Geri Pradhan EGFR-NON AF SERBIAN >60 Normal >=60 [facility] Comment on above: Performed By: #### Gerry INGRAM CMP #### [facility] [address] [address] [address] Geri Pradhan Glucose [Mass/Vol] 183 mg/dL Critically high 74-106 [facility] Comment on above: Performed By: #### Gerry INGRAM CMP #### [facility] [address] [place] [address] Dr. Geri Pradhan Potassium [Moles/Vol] 3.8 mmol/L Normal 3.5-5.1 [facility] Comment on above: Performed By: #### Gerry INGRAM CMP #### [facility] [address] [place] [address] Dr. Geri Pradhan Sodium [Moles/Vol] 138 mmol/L Normal 136-145 [facility] Comment on above: Performed By: #### Gerry INGRAM CMP #### [facility] [address] [place] [address] Dr. Geri Pradhan Urea nitrogen [Mass/Vol] 10.0 mg/dL Normal 7.0-18.0 [facility] Comment on above: Performed By: #### Gerry INGRAM CMP #### [facility] [address] [place] [address] Dr. Geri Pradhan Urea nitrogen/Creatinine [Mass ratio] 15.2 mg/mg Normal [facility] Comment on above: Performed By: #### Gerry INGRAM CMP #### [facility] [address] [place] [address] Dr. Geri Pradhan THEOPHYLLINEon 09-02-2022 THEOPHYLLINE <2.0 Critically low 10.0-20.0 [facility] Comment on above: Performed By: #### R DUANEUS #### [facility] [address] [place] [address] Dr. Geri Pradhan BLOOD CULTURE ID PANELon A. baumannii Not detected Normal NOT DETECTED [facility] Comment on above: Performed By: #### Gerry INGRAM CMP #### [facility] [address] [place] [address] Dr. Geri Pradhan Bacteriodes fragilis Not detected Normal NOT DETECTED [facility] Comment on above: Performed By: #### Gerry INGRAM, CMP #### [facility] [address] [place] [address] Dr. Geri BRINK CONTROLS PASSED [facility] Comment on above: Performed By: #### Gerry INGRAM, CMP #### [facility] [address] [place] [address] Dr. Geri GARCÍADBTHD BLOOD CULTURE BOTTLE INFORMATION [facility] Comment on above: Performed By: #### Gerry INGRAM, CMP #### [facility] [address] [place] [address] Dr. Geri GARCÍADHD1 ANTIMICROBIAL RESISTANCE GENES [facility] Comment on above: Performed By: #### Gerry INGRAM, CMP #### [facility] [address] [place] [address] Dr. Geri GARCÍADHD2 SEE BELOW [facility] Comment on above: Result Comment: Note : Antimicrobial resitance can occur via multiple mechanisms. A Not Detected result for the [employer] antomicrobial resistance gene assays does not indicate antimicrobial susceptibility. Subculturing is required for species identification and susceptibility testing of isolates. Performed By: #### Gerry INGRAM CMP #### [facility] [address] [place] [address] Dr. Geri Pradhan BCIDHD3 Positive [facility] Comment on above: Performed By: #### Gerry INGRAM, CMP #### [facility] [address] [place] [address] Dr. Geri Pradhan BCIDHD4 Negative [facility] Comment on above: Performed By: #### Gerry INGRAM, CMP #### [facility] [address] [place] [address] Dr. Geri Pradhan BCIDHD5 YEAST [facility] Comment on above: Performed By: #### Gerry INGRAM, CMP #### [facility] [address] [place] [address] Dr. Geri Pradhan Bottle Set: Set [address] [facility] Comment on above: Performed By: #### Gerry INGRAM, CMP #### [facility] [address] [address] [address] Geri Pradhan Bottle: Aerobic Normal [facility] Comment on above: Performed By: #### T JUAN JOSE, CMP #### [facility] [address] [place] [address] Dr. Geri Pradhan C. neoformans/gattii Not detected Normal NOT DETECTED [facility] Comment on above: Performed By: #### Gerry INGRAM, CMP #### [facility] [address] [place] [address] Dr. Geri Pradhan Milagros albicans Not detected Normal NOT DETECTED [facility] Comment on above: Performed By: #### Gerry INGRAM, CMP #### [facility] [address] [place] [address] Dr. Geri Pradhan Milagros auris Not detected Normal NOT DETECTED [facility] Comment on above: Performed By: #### Gerry INGRAM CMP #### [facility] [address] [place] [address] Dr. Geri Pradhan Milagros glabrata Not detected Normal NOT DETECTED [facility] Comment on above: Performed By: #### Gerry INGRAM, CMP #### [facility] [address] [place] [address] Dr. Geri Pradhan Milagros Krusei Not detected Normal NOT DETECTED [facility] Comment on above: Performed By: #### Gerry INGRAM, CMP #### [facility] [address] [place] [address] Dr. Geri Pradhan Milagros Parapsilosis Not detected Normal NOT DETECTED [facility] Comment on above: Performed By: #### Gerry INGRAM, CMP #### [facility] [address] [place] [address] Dr. Geri Pradhan Milagros Tropicalis Not detected Normal NOT DETECTED [facility] Comment on above: Performed By: #### Gerry INGRAM, CMP #### [facility] [address] [place] [address] Dr. Geri Pradhan CTX-M Resistant Gene Not Applicable Normal NOT DETECTE D [facility] Comment on above: Performed By: #### Gerry INGRAM, CMP #### [facility] [address] [place] [address] Dr. Geri Pradhan E. Cloacae complex Not detected Normal NOT DETECTED [facility] Comment on above: Performed By: #### Gerry INGRAM, CMP #### [facility] [address] [place] [address] Dr. Geri Pradhan E. faecalis Not detected Normal NOT DETECTED [facility] Comment on above: Performed By: #### Gerry INGRAM, CMP #### [facility] [address] [place] [address] Dr. Geri Pradhan E. faecium Not detected Normal NOT DETECTED [facility] Comment on above: Performed By: #### Gerry INGRAM, CMP #### [facility] [address] [place] [address] Dr. Geri Pradhan Enterobacteriaceae Not detected Normal NOT DETECTED [facility] Comment on above: Performed By: #### Gerry INGRAM, CMP #### [facility] [address] [place] [address] Dr. Geri Pradhan Escherichia coli Not detected Normal NOT DETECTED [facility] Comment on above: Performed By: #### Gerry INGRAM, CMP #### [facility] [address] [place] [address] Dr. Geri Pradhan H. influenzae Not detected Normal NOT DETECTED [facility] Comment on above: Performed By: #### Gerry INGRAM, CMP #### [facility] [address] [place] [address] Dr. Geri Pradhan IMP Resistant Gene Not Applicable Normal NOT DETECTED [facility] Comment on above: Performed By: #### Gerry INGRAM, CMP #### [facility] [address] [place] [address] Dr. Geri Pradhan K. oxytoca Not detected Normal NOT DETECTED [facility] Comment on above: Performed By: #### Gerry INGRAM, CMP #### [facility] [address] [place] [address] Dr. Geri Pradhan K. pneumoniae Not detected Normal NOT DETECTED [facility] Comment on above: Performed By: #### Gerry INGRAM, CMP #### [facility] [address] [place] [address] Dr. Geri Pradhan Klebsiella aerogenes Not detected Normal NOT DETECTED [facility] Comment on above: Performed By: #### T JUAN JOSE, CMP #### [facility] [address] [place] [address] Dr. Geri Pradhan KPC Resistant Gene Not Applicable Normal NOT DETECTED [facility] Comment on above: Performed By: #### T JUAN JOSE, CMP #### [facility] [address] [place] [address] Dr. Geri Pradhan List. monocytogenes Not detected Normal NOT DETECTED [facility] Comment on above: Performed By: #### T JUAN JOSE, CMP #### [facility] [address] [place] [address] Dr. Geri Pradhan Mcr-1 Resistant Gene Not Applicable Normal NOT DETECTE D [facility] Comment on above: Performed By: #### Gerry INGRAM, CMP #### [facility] [address] [place] [address] Dr. Geri Pradhan mecA/C Detected Abnormal NOT DETECTED [facility] Comment on above: Performed By: #### Gerry INGRAM, CMP #### [facility] [address] [place] [address] Dr. Geri Pradhan mecA/C MREJ Not Applicable Normal NOT DETECTED [facility] Comment on above: Performed By: #### Gerry INGRAM, CMP #### [facility] [address] [place] [address] Dr. Geri Pradhan N. meningitidis Not detected Normal NOT DETECTED [facility] Comment on above: Performed By: #### T JUAN JOSE, CMP #### [facility] [address] [place] [address] Dr. Geri Pradhan NDM Resistant Gene Not Applicable Normal NOT DETECTED [facility] Comment on above: Performed By: #### T JUAN JOSE, CMP #### [facility] [address] [place] [address] Dr. Geri Pradhan Oxa-48-like Not Applicable Normal NOT DETECTED [facility] Comment on above: Performed By: #### T JUAN JOSE, CMP #### [facility] [address] [place] [address] Dr. Geri Pradhan Proteus Not detected Normal NOT DETECTED [facility] Comment on above: Performed By: #### T JUAN JOSE, CMP #### [facility] [address] [place] [address] Dr. Geri Pradhan Pseud. aeruginosa Not detected Normal NOT DETECTED [facility] Comment on above: Performed By: #### T JUAN JOSE, CMP #### [facility] [address] [place] [address] Dr. Geri Pradhan S. maltophilia Not detected Normal NOT DETECTED [facility] Comment on above: Performed By: #### T JUAN JOSE, CMP #### [facility] [address] [place] [address] Dr. Geri Pradhan Salmonella Not detected Normal NOT DETECTED [facility] Comment on above: Performed By: #### T JUAN JOSE, CMP #### [facility] [address] [place] [address] Dr. Geri Pradhan Seratia marcescens Not detected Normal NOT DETECTED [facility] Comment on above: Performed By: #### T JUAN JOSE, CMP #### [facility] [address] [place] [address] Dr. Geri Pradhan Site: Right AC Normal [facility] Comment on above: Performed By: #### T JUAN JOSE, CMP #### [facility] [address] [place] [address] Dr. Geri Pradhan Staph. aureus Not detected Normal NOT DETECTED [facility] Comment on above: Performed By: #### T JUAN JOSE, CMP #### [facility] [address] [place] [address] Dr. Geri Pradhan Staph. epidermidis Detected Critically abnormal NOT DETECTED [facility] Comment on above: Performed By: #### T JUAN JOSE, CMP #### [facility] [address] [place] [address] Dr. Geri Pradhan Stapwilliam. lugdunensis Not detected Normal NOT DETECTED [facility] Comment on above: Performed By: #### T JUAN JOSE, CMP #### [facility] [address] [place] [address] Dr. Geri Pradhan Staphylococcus Detected Critically abnormal NOT DETECTED [facility] Comment on above: Performed By: #### Gerry INGRAM, CMP #### [facility] [address] [place] [address] Dr. Geri Pradhan Strep. agalactiae Not detected Normal NOT DETECTED [facility] Comment on above: Performed By: #### Gerry INGRAM, CMP #### [facility] [address] [place] [address] Dr. Geri Pradhan Strep. pneumoniae Not detected Normal NOT DETECTED [facility] Comment on above: Performed By: #### T JUAN JOSE, CMP #### [facility] [address] [place] [address] Dr. Geri Pradhan Strep. pyogenes Not detected Normal NOT DETECTED [facility] Comment on above: Performed By: #### Gerry INGRAM, CMP #### [facility] [address] [place] [address] Dr. Geri Pradhan Streptococcus Not detected Normal NOT DETECTED [facility] Comment on above: Performed By: #### Gerry INGRAM, CMP #### [facility] [address] [place] [address] Dr. Geri Pradhan Amrit/B Resist. Gene Not Applicable Normal NOT DETECTED [facility] Comment on above: Performed By: #### Gerry INGRAM, CMP #### [facility] [address] [place] [address] Dr. Geri Pradhan VIM Resistant Gene Not Applicable Normal NOT DETECTED [facility] Comment on above: Performed By: #### Gerry INGRAM, CMP #### [facility] [address] [place] [address] Dr. Geri Pradhan BLOOD GASES BTYon 09-01-2022 02 MODE NASAL CANNULA Normal [facility] Comment on above: Performed By: #### R SPLUS #### [facility] [address] [place] [address] Dr. Geri KISER TEST Positive Normal [facility] Comment on above: Performed By: #### R SPLUS #### [facility] [address] [place] [address] Dr. Geri Pradhan Base excess Calc (Bld) [Moles/Vol] 22.8 mmol/L Critically high -2.0-2.0 [facility] Comment on above: Performed By: #### R SPLUS #### [facility] [address] [place] [address] Dr. Geri Pradhan BIPAP PRESSURE Normal [facility] Comment on above: Performed By: #### R SPLUS #### [facility] [address] [place] [address] Dr. Geri Pradhan CPAP Normal [facility] Comment on above: Performed By: #### R SPLUS #### [facility] [address] [place] [address] Dr. Geri Pradhan FIO2 [facility] Comment on above: Performed By: #### R SPLUS #### [facility] [address] [place] [address] Dr. Geri Pradhan HCO3 (Bld) [Moles/Vol] 47.1 mmol/L Critically high 22.0-26 .0 [facility] Comment on above: Performed By: #### R SPLUS #### [facility] [address] [place] [address] Dr. Geri Pradhan LPM 2.5 Normal [facility] Comment on above: Performed By: #### R SPLUS #### [facility] [address] [place] [address] Dr. Geri Pradhan MINUTE VOLUME Normal [facility] Comment on above: Performed By: #### R SPLUS #### [facility] [address] [place] [address] Dr. Geri Pradhan Oxygen (Bld) [Partial pressure] 95.8 mm[Hg] Normal 80.0-100.0 [facility] Comment on above: Performed By: #### R SPLUS #### [facility] [address] [place] [address] Dr. Geri Pradhan Oxygen saturation in Blood 98.0 % Normal 95.0-100.0 [facility] Comment on above: Performed By: #### R SPLUS #### [facility] [address] [place] [address] Dr. Geri Pradhan PCO2 71.5 mmHg Critically high 35.0-45.0 [facility] Comment on above: Performed By: #### R SPLUS #### [facility] [address] [place] [address] Dr. Geri Pradhan [facility] Comment on above: Performed By: #### R SPLUS #### [facility] [address] [place] [address] Dr. Geri Pradhan pH (Bld) 7.428 [pH] Normal 7.350-7.450 [facility] Comment on above: Performed By: #### R SPLUS #### [facility] [address] [place] [address] Dr. Geri Pradhan [facility] Comment on above: Performed By: #### R SPLUS #### [facility] [address] [place] [address] Dr. Geri Pradhan [facility] Comment on above: Performed By: #### R SPLUS #### [facility] [address] [place] [address] Dr. Geri Pradhan PUNCTURE SITE RR [facility] Comment on above: Performed By: #### R SPLUS #### [facility] [address] [place] [address] Dr. Geri Pradhan [facility] Comment on above: Performed By: #### R SPLUS #### [facility] [address] [place] [address] Dr. Geri Pradhan VENT MODE [facility] Comment on above: Performed By: #### R SPLUS #### [facility] [address] [place] [address] Dr. Geri Pradhan [facility] Comment on above: Performed By: #### R SPLUS #### [facility] [address] [place] [address] Dr. Geri Pradhan BNPon 09-01-2022 Natriuretic peptide B (Bld) [Mass/Vol] 143.0 pg/mL Normal <=900.0 [facility] Comment on above: Performed By: #### R SPLUS #### [facility] [address] [place] [address] Dr. Geri Pradhan CARDIAC BRAYAN ADMITon 023 CK [Catalytic activity/Vol] 21 U/L Critically low 26-192 [facility] Comment on above: Performed By: #### R SPLUS #### [facility] [address] [place] [address] Dr. Geri Pradhan CK.MB [Mass/Vol] 0.78 ng/mL Normal <=3.60 [facility] Comment on above: Performed By: #### R SPLUS #### [facility] [address] [place] [address] Dr. Geri Pradhan HSTROP 6.9 pg/mL Normal 4.0-51.3 [facility] Comment on above: Result Comment: CUT- OFF POINTS HAVE BEEN ESTABLISHED BASED ON THE FOURTH UNIVERSAL DEFINITIONS OF MYOCARDIAL INFARCTION. THE UPPER REFERENCE LIMIT (URL) OF TROPONIN, DEFINED THE 99TH PERCENTILE OF cTnI DISTRIBUTION IN A REFERENCE POPULATION, HAS BEEN CONFIRMED THE DECISION THRESHOLD FOR ND DIAGNOSIS. Performed By: #### R SPLUS #### [facility] [address] [place] [address] Dr. Geri Pradhan VIN 20 ng/mL Normal 9-82 [facility] Comment on above: Performed By: #### R SPLUS #### [facility] [address] [place] [address] Dr. Geri Pradhan CBC AUTO DIFFon 09-01-2022 BASO # 0.0 103/ul Normal 0.0-0.1 [facility] Comment on above: Performed By: #### C BC #### [facility] [address] [place] [address] Dr. Geri Pradhan Basophils/100 WBC (Bld) 0.2 % Normal 0.2-2.0 [facility] Comment on above: Performed By: #### C BC #### [facility] [address] [place] [address] Dr. Geri Pradhan EO # 0.1 103/ul Normal 0.0-0.7 [facility] Comment on above: Performed By: #### C BC #### [facility] [address] [place] [address] Dr. Geri Pradhan Eosinophils/100 WBC (Bld) 1.5 % Normal 0.9-7.0 [facility] Comment on above: Performed By: #### C BC #### [facility] [address] [place] [address] Dr. Geri Pradhan Erythrocyte distribution width (RBC) [Ratio] 12.8 % Normal 11.0-15.0 [facility] Comment on above: Performed By: #### C BC #### [facility] [address] [place] [address] Dr. Geri Pradhan Hematocrit (Bld) [Volume fraction] 41.8 % Normal 36.0-48.0 [facility] Comment on above: Performed By: #### C BC #### [facility] [address] [place] [address] Dr. Geri Pradhan Hemoglobin (Bld) [Mass/Vol] 13.1 g/dL Normal 12.0-16.0 [facility] Comment on above: Performed By: #### C BC #### [facility] [address] [place] [address] Dr. Grei Pradhan IG # 0.05 10e3/ul Critically high 0.00-0.03 [facility] Comment on above: Performed By: #### C BC #### [facility] [address] [place] [address] Dr. Geri Pradhan IG % 0.5 % Normal 0.0-0.5 [facility] Comment on above: Performed By: #### C BC #### [facility] [address] [place] [address] Dr. Geri Pradhan LYMPH # 2.4 103/ul Normal 1.2-3.8 [facility] Comment on above: Performed By: #### C BC #### [facility] [address] [place] [address] Dr. Geri Pradhan Lymphocytes/100 WBC (Bld) 24.9 % Normal 20.5-60.0 [facility] Comment on above: Performed By: #### C BC #### [facility] [address] [place] [address] Dr. Geri Pradhan MANUAL DIFF REQ NO Normal [facility] Comment on above: Performed By: #### C BC #### [facility] [address] [place] [address] Dr. Geri Pradhan MCH (RBC) [Entitic mass] 27.2 pg Normal 26.7-34.0 [facility] Comment on above: Performed By: #### C BC #### [facility] [address] [place] [address] Dr. Geri Pradhan MCHC (RBC) [Mass/Vol] 31.3 g/dL Normal 29.9-35.2 [facility] Comment on above: Performed By: #### C BC #### [facility] [address] [place] [address] Dr. Geri Pradhan MCV (RBC) [Entitic vol] 86.7 fL Normal 81.0-99.0 [facility] Comment on above: Performed By: #### C BC #### [facility] [address] [place] [address] Dr. Geri Pradhan MONO # 0.9 103/ul Critically high 0.3-0.8 [facility] Comment on above: Performed By: #### C BC #### [facility] [address] [place] [address] Dr. Geri Pradhan Monocytes/100 WBC (Bld) 8.9 % Normal 1.7-12.0 [facility] Comment on above: Performed By: #### C BC #### [facility] [address] [place] [address] Dr. Geri Pradhan NEUT # 6.1 103/ul Normal 1.4-6.5 [facility] Comment on above: Performed By: #### C BC #### [facility] [address] [place] [address] Dr. Geri Pradhan Neutrophils/100 WBC (Bld) 64.0 % Normal 43.0-75.0 [facility] Comment on above: Performed By: #### C BC #### [facility] [address] [place] [address] Dr. Geri Pradhan Platelet mean volume (Bld) [Entitic vol] 9.2 fL Critically low 9.5-13.5 [facility] Comment on above: Performed By: #### C BC #### [facility] [address] [place] [address] Dr. Geri Pradhan PLT 349 103/ul Normal 150-450 [facility] Comment on above: Performed By: #### C BC #### [facility] [address] [place] [address] Dr. Geri Pradhan RBC 4.82 106/ul Normal 4.20-5.40 [facility] Comment on above: Performed By: #### C BC #### [facility] [address] [place] [address] Dr. Geri Pradhan WBC 9.5 103/ul Normal 4.0-11.0 [facility] Comment on above: Performed By: #### C BC #### [facility] [address] [place] [address] Dr. Geri Pradhan CULTURE BLOODon 09-01-2022 Microscopic examination of blood, culture Culture Observations: NO GROWTH AT 5 DAYS. Normal [facility] Comment on above: Performed By: #### P OCGLUC #### [facility] [address] [place] [address] Dr. Geri Pradhan CULTURE URINEon 09-01-2022 CULTURE URINE Culture Observations : EDUARDO TO FOLLOW. Isolate 1 Pseudomonas aeruginosa 10,000 cfu/mL of Normal [facility] Comment on above: Performed By: #### P OCGLUC #### [facility] [address] [place] [address] Dr. Geri Pradhan ER URINE PROFILEon 3 Bilirubin Ql (U) Negative Normal NEGATIVE [facility] Comment on above: Performed By: #### P OCGLUC #### [facility] [address] [place] [address] Dr. Geri Pradhan Clarity (U) CLEAR Normal CLEAR [facility] Comment on above: Performed By: #### P OCGLUC #### [facility] [address] [place] [address] Dr. Geri Pradhan Color (U) LT. YELLOW Normal YELLOW [facility] Comment on above: Performed By: #### P OCGLUC #### [facility] [address] [address] [address] Geri HUNT A micrscopic examination will be performed if indicated. Normal [facility] Comment on above: Performed By: #### P OCGLUC #### [facility] [address] [place] [address] Dr. Geri Pradhan Glucose Ql (U) Negative Normal NEGATIVE [facility] Comment on above: Performed By: #### P OCGLUC #### [facility] [address] [address] [address] Geri Prahdan Hemoglobin Ql (U) TRACE-INTACT Abnormal NEGATIVE [facility] Comment on above: Performed By: #### P OCGLUC #### [facility] [address] [place] [address] Dr. Geri Pradhan Ketones Ql (U) Negative Normal NEGATIVE [facility] Comment on above: Performed By: #### P OCGLUC #### [facility] [address] [place] [address] Dr. Geri Pradhan LEUKOCYTES MODERATE Abnormal NEGATIVE [facility] Comment on above: Performed By: #### P OCGLUC #### [facility] [address] [place] [address] Dr. Geri Pradhan Nitrite Ql (U) Negative Normal NEGATIVE [facility] Comment on above: Performed By: #### P OCGLUC #### [facility] [address] [place] [address] Dr. Geri Pradhan pH (U) 6.5 [pH] Normal 5-9 [facility] Comment on above: Performed By: #### P OCGLUC #### [facility] [address] [place] [address] Dr. Geri Pradhan SPEC GRAVITY 1.010 Normal 1.005-<=1.02 5 [facility] Comment on above: Performed By: #### P OCGLUC #### [facility] [address] [place] [address] Dr. Geri Pradhan UA PROTEIN Negative Normal NEGATIVE/ TRACE [facility] Comment on above: Performed By: #### P OCGLUC #### [facility] [address] [place] [address] Dr. Geri Pradhan UR MICRO IND INDICATED Normal [facility] Comment on above: Performed By: #### P OCGLUC #### [facility] [address] [place] [address] Dr. Geri Pradhan Urobilinogen Qn (U) 0.2 {Lelia'U}/dL Normal 0.2 - 1. 0 [facility] Comment on above: Performed By: #### P OCGLUC #### [facility] [address] [place] [address] Dr. Geri Pradhan LACTATE/LACTIC ACIDon 2022 Lactate [Moles/Vol] 0.7 mmol/L Normal 0.4-2.0 [facility] Comment on above: Performed By: #### T JUAN JOSE, CMP #### [facility] [address] [place] [address] Dr. Geri Pradhan PROF 14(COMP METB)on 023 Albumin [Mass/Vol] 3.3 g/dL Critically low 3.4-5.0 [facility] Comment on above: Performed By: #### P OCGLUC #### [facility] [address] [place] [address] Dr. Geri Pradhan Albumin/Globulin [Mass ratio] 0.7 {ratio} Normal [facility] Comment on above: Performed By: #### P OCGLUC #### [facility] [address] [place] [address] Dr. Geri Pradhan ALP [Catalytic activity/Vol] 81 U/L Normal 46-116 [facility] Comment on above: Performed By: #### P OCGLUC #### [facility] [address] [place] [address] Dr. Geri Pradhan ALT [Catalytic activity/Vol] 19 U/L Normal 14-59 [facility] Comment on above: Performed By: #### P OCGLUC #### [facility] [address] [place] [address] Dr. Geri Pradhan Anion gap [Moles/Vol] 3.1 mmol/L Normal [facility] Comment on above: Performed By: #### P OCGLUC #### [facility] [address] [address] [address] Geri Pradhan AST [Catalytic activity/Vol] 16 U/L Normal 15-37 [facility] Comment on above: Performed By: #### P OCGLUC #### [facility] [address] [address] [address] Geri Pradhan Bilirubin [Mass/Vol] 0.2 mg/dL Normal 0.2-1.0 [facility] Comment on above: Performed By: #### P OCGLUC #### [facility] [address] [address] [address] Geri Pradhan Calcium [Mass/Vol] 9.8 mg/dL Normal 8.5-10.1 [facility] Comment on above: Performed By: #### P OCGLUC #### [facility] [address] [place] [address] Dr. Geri Pradhan Chloride [Moles/Vol] 93 mmol/L Critically low 98-107 [facility] Comment on above: Performed By: #### P OCGLUC #### [facility] [address] [place] [address] Dr. Geri Pradhan CO2 [Moles/Vol] 45.3 mmol/L Critically high 21.0-32.0 [facility] Comment on above: Performed By: #### P OCGLUC #### [facility] [address] [place] [address] Dr. Geri Pradhan Creatinine [Mass/Vol] 0.51 mg/dL Critically low 0.55-1.02 [facility] Comment on above: Performed By: #### P OCGLUC #### [facility] [address] [place] [address] Dr. Geri Pradhan EGFR-AF SERBIAN >60 Normal >=60 [facility] Comment on above: Performed By: #### P OCGLUC #### [facility] [address] [place] [address] Dr. Geri Pradhan EGFR-NON AF SERBIAN >60 Normal >=60 [facility] Comment on above: Performed By: #### P OCGLUC #### [facility] [address] [address] [address] Geri Pradhan Globulin (S) [Mass/Vol] 4.8 g/dL Normal [facility] Comment on above: Performed By: #### P OCGLUC #### [facility] [address] [address] [address] Geri Pradhan Glucose [Mass/Vol] 98 mg/dL Normal 74-106 [facility] Comment on above: Performed By: #### P OCGLUC #### [facility] [address] [address] [address] Geri Pradhan Potassium [Moles/Vol] 3.4 mmol/L Critically low 3.5-5.1 [facility] Comment on above: Performed By: #### P OCGLUC #### [facility] [address] [address] [address] Geri Pradhan Protein [Mass/Vol] 8.1 g/dL Normal 6.4-8.2 [facility] Comment on above: Performed By: #### P OCGLUC #### [facility] [address] [address] [address] Geri Pradhan Sodium [Moles/Vol] 138 mmol/L Normal 136-145 [facility] Comment on above: Performed By: #### P OCGLUC #### [facility] [address] [address] [address] Geri Pradhan Urea nitrogen [Mass/Vol] 11.0 mg/dL Normal 7.0-18.0 [facility] Comment on above: Performed By: #### P OCGLUC #### [facility] [address] [address] [address] Geri Pradhan Urea nitrogen/Creatinine [Mass ratio] 21.6 mg/mg Normal [facility] Comment on above: Performed By: #### P OCGLUC #### [facility] [address] [address] [address] Geri Pradhan PROTIMEon 09-01-2022 INR Coag (PPP) [Relative time] 0.96 {INR} Normal [facility] Comment on above: Performed By: #### Gerry INGRAM, CMP #### [facility] [address] [place] [address] Dr. Geri Pradhan INR GUIDELINES SEE BELOW Normal [facility] Comment on above: Result Comment: KAROL RED INR: 2.0 - 3.0 CONDITIONS NOT LISTED BELOW 2.5 - 3.5 FOR PROSTHETIC HEART VALVE REPLACEMENT 2.5 - 3.5 RECURRENT THROMBOSIS Performed By: #### Gerry INGRAM, CMP #### [facility] [address] [place] [address] Dr. Geri Pradhan PT Coag (PPP) [Time] 10.2 s Normal 9.0-11.6 [facility] Comment on above: Performed By: #### Gerry INGRAM, CMP #### [facility] [address] [place] [address] Dr. Geri Pradhan PTTon 09-01-2022 aPTT Coag (Bld) [Time] 25.5 s Normal 22.3-36.2 [facility] Comment on above: Performed By: #### Gerry INGRAM, CMP #### [facility] [address] [place] [address] Dr. Geri Pradhan URINE MICROSCOPIC ONLYon BACTERIA NONE SEEN Normal NONE SEEN [facility] Comment on above: Performed By: #### P OCGLUC #### [facility] [address] [place] [address] Dr. Geri Pradhan Bacteria identified Cx Nom (U) INDICATED Normal [facility] Comment on above: Performed By: #### P OCGLUC #### [facility] [address] [place] [address] Dr. Geri Pradhan CAST NONE SEEN Normal NONE SEEN [facility] Comment on above: Performed By: #### P OCGLUC #### [facility] [address] [place] [address] Dr. Geri Pradhan Crystals LM Nom (Urine sed) NONE SEEN Normal NONE SEEN [facility] Comment on above: Performed By: #### P OCGLUC #### [facility] [address] [place] [address] Dr. Geri Pradhan Epithelial cells LM Ql (Urine sed) FEW Abnormal NONE SEEN /RARE [facility] Comment on above: Performed By: #### P OCGLUC #### [facility] [address] [place] [address] Dr. Geri Pradhan MUCOUS NONE SEEN Normal NONE SEEN [facility] Comment on above: Performed By: #### P OCGLUC #### [facility] [address] [place] [address] Dr. Geri Pradhan RBC 0-2 Normal 0-2 [facility] Comment on above: Performed By: #### P OCGLUC #### [facility] [address] [place] [address] Dr. Geri Pradhan WBC 10-20 Abnormal NONE SEEN [facility] Comment on above: Performed By: #### P OCGLUC #### [facility] [address] [place] [address] Dr. Geri Pradhan XR CHEST 1 Von [...] EAMON ANDREWS Date: 2022-09-01 20:18 Normal [facility] ASPERGILLUS GALACTOMANNAN AN TIGEN DETECTon 05-28-2022 Aspergillus Ag, BAL/Serum 0.07 Index Normal 0.00-0.49 [facility] Comment on above: Result Comment: Perf ormed at: BN Performed By: #### T JUAN JOSE CMP #### [facility] [address] [place] [address] Dr. Geri Pradhan Test Information . Normal [facility] Comment on above: Result Comment: Perf ormed at: TG Performed By: #### T JUAN JOSE, CMP #### [facility] [address] [place] [address] Dr. Geri Pradhan ASPERGILLUS AB, QUANTITATIVE DIDon 05-27-2022 Aspergillus flavus Negative Normal Neg:<1:1 [facility] Comment on above: Performed By: #### T JUAN JOSE, CMP #### [facility] [address] [address] [address] Geri Pradhan Aspergillus fumigatus Negative Normal Neg:<1:1 [facility] Comment on above: Performed By: #### Gerry INGRAM, CMP #### [facility] [address] [address] [address] Geri Pradhan Aspergillus niger Negative Normal Neg:<1:1 [facility] Comment on above: Performed By: #### Gerry INGRAM, CMP #### [facility] [address] [address] [address] Geri Pradhan CULTURE SPUTUMon 05-23-2022 CULTURE SPUTUM Culture Observations : NORMAL RESPIRATORY NAVA. Normal [facility] Comment on above: Performed By: #### P OCGLUC #### [facility] [address] [place] [address] Dr. Geri Pradhan SPUTUM GRAM STAINon 05-23-19 COMMENTS Normal [facility] Comment on above: Performed By: #### Gerry INGRAM, CMP #### [facility] [address] [place] [address] Dr. Geri Pradhan DIPHTHEROIDS [facility] Comment on above: Performed By: #### Gerry INGRAM CMP #### [facility] [address] [place] [address] Dr. Geri Pradhan EPITHELIALS <25 Normal [facility] Comment on above: Performed By: #### Gerry INGRAM CMP #### [facility] [address] [place] [address] Dr. Geri Pradhan FUNGAL ELEMENTS [facility] Comment on above: Performed By: #### Gerry INGRAM CMP #### [facility] [address] [address] [address] Geri Pradhan GRAM NEG BACILLI [facility] Comment on above: Performed By: #### Gerry INGRAM, CMP #### [facility] [address] [place] [address] Dr. Geri Pradhan GRAM NEG DIPPLOCOCCI Normal [facility] Comment on above: Performed By: #### Gerry INGRAM, CMP #### [facility] [address] [address] [address] Geri Pradhan GRAM POS BACILLI Normal [facility] Comment on above: Performed By: #### Gerry INGRAM, CMP #### [facility] [address] [place] [address] Dr. Geri Pradhan GRAM POSITIVE COCCI MODERATE Normal [facility] Comment on above: Performed By: #### Gerry INGRAM, CMP #### [facility] [address] [place] [address] Dr. Geri Pradhan WBC (Bld) [#/Vol] 10*3/uL Normal [facility] Comment on above: Performed By: #### Gerry INGRAM, CMP #### [facility] [address] [place] [address] Dr. Geri Pradhan BRONCHOSCOPYon 05-09-2022 [facility] Covid-19 PCR (CVDTBH)on 04-14 SARS-CoV-2 (COVID-19) RNA KRUNAL+probe Ql (Unsp spec) Not detected Normal NOT DETECTED [facility] Comment on above: Result Comment: This test is not yet approved or cleared by the [place] FDA. When there are no FDA-approved or cleared tests available, and other criteria are met, FDA can make tests available under an emergency access mechanism called an Emergency Use Authorization (EUA). The EUA for this test is supported by the [place] of Health and Human Service's (HHS's) declaration [...] SARS-CoV-2. Performed By: #### R SPLUS #### [facility] [address] [place] [address] Dr. Geri Pradhan Covid-19 PCR (CVDTBH)on 03-14 SARS-CoV-2 (COVID-19) RNA KRUNAL+probe Ql (Unsp spec) Not detected Normal NOT DETECTED [facility] Comment on above: Result Comment: This test is not yet approved or cleared by the [place] FDA. When there are no FDA-approved or cleared tests available, and other criteria are met, FDA can make tests available under an emergency access mechanism called an Emergency Use Authorization (EUA). The EUA for this test is supported by the [place] of Health and Human Service's (HHS's) declaration [...] Performed By: #### Gerry INGRAM, CMP #### [facility] [address] [place] [address] Dr. Geri Pradhan INFLUENZA A AND B AGon 04-08 INFLUANE SEE BELOW Normal [facility] Comment on above: Result Comment: Nega tive for Flu A protein angiten. Infection due to Flu A cannot be ruled out. Flu A angiten in the sample may be below the detection limit of the test. Performed By: #### T JUAN JOSE, CMP #### [facility] [address] [place] [address] Dr. Geri Prahdan INFLUBNEG SEE BELOW Normal [facility] Comment on above: Result Comment: Nega tive for Flu B protein antigen. Infection due to Flu B cannot be ruled out. Flu B antigen in the sample may be below the detection limit of the test. Performed By: #### T JUAN JOSE, CMP #### [facility] [address] [place] [address] Dr. Geri Pradhan INFLUENZA A AG Negative Normal NEGATIVE SEE COMMENT [facility] Comment on above: Performed By: #### Gerry INGRAM, CMP #### [facility] [address] [place], [place] [address] Dr. Geri Pradhan INFLUENZA B AG Negative Normal NEGATIVE SEE COMMENT [facility] Comment on above: Performed By: #### T JUAN JOSE, CMP #### [facility] [address] [place], [place] [address] Dr. Geri Pradhan INTERNAL CONTROLS Within Normal Limits Normal Wi thin Normal Limits [facility] Comment on above: Performed By: #### T JUAN JOSE, CMP #### [facility] [address] [place], [place] [address] CHEST W CONon [...] by: JULES RAMIREZ Date: 2022-02-17 08:02 Normal [facility] CREATININEon 02-15-2022 Creatinine [Mass/Vol] 0.52 mg/dL Critically low 0.55-1.02 [facility] Comment on above: Performed By: #### R SPLUS #### [facility] [address] [place] [address] Dr. Geri Pradhan EGFR-AF SERBIAN >60 Normal >=60 [facility] Comment on above: Performed By: #### R SPLUS #### [facility] [address] [place] [address] Dr. Geri Pradhan EGFR-NON AF SERBIAN >60 Normal >=60 [facility] Comment on above: Performed By: #### R SPLUS #### [facility] [address] [place] [address] Dr. Geri Pradhan CULTURE SPUTUMon 02-11-2022 CULTURE SPUTUM Isolate 1 Milagros albicans Light growth of Normal [facility] Comment on above: Performed By: #### S PUTCX #### [facility] [address] [place] [address] Dr. Geri Pradhan SPUTUM GRAM STAINon 02-12-20 22 COMMENTS Normal [facility] Comment on above: Performed By: #### R SPLUS #### [facility] [address] [place] [address] Dr. Geri Pradhan DIPHTHEROIDS Normal [facility] Comment on above: Performed By: #### R SPLUS #### [facility] [address] [place] [address] Dr. Geri Pradhan EPITHELIALS <25 Normal [facility] Comment on above: Performed By: #### R SPLUS #### [facility] [address] [place] [address] Dr. Geri Pradhan FUNGAL ELEMENTS Normal [facility] Comment on above: Performed By: #### R SPLUS #### [facility] [address] [place] [address] Dr. Geri Pradhan GRAM NEG BACILLI Normal [facility] Comment on above: Performed By: #### R SPLUS #### [facility] [address] [place] [address] Dr. Geri Pradhan GRAM NEG DIPPLOCOCCI Normal [facility] Comment on above: Performed By: #### R SPLUS #### [facility] [address] [place] [address] Dr. Geri Pradhan GRAM POS BACILLI Normal [facility] Comment on above: Performed By: #### R SPLUS #### [facility] [address] [place] [address] Dr. Geri Pradhan GRAM POSITIVE COCCI MODERATE Normal [facility] Comment on above: Performed By: #### R SPLUS #### [facility] [address] [address] [address] Geri Pradhan WBC (Bld) [#/Vol] 10*3/uL Normal [facility] Comment on above: Performed By: #### R SPLUS #### [facility] [address] [place] [address] Dr. Geri Pradhan Covid-19 PCR (CVDTBH)on 11-13 SARS-CoV-2 (COVID-19) RNA KRUNAL+probe Ql (Unsp spec) Detected Critically abnormal NOT DETECTED [facility] Comment on above: Result Comment: This test is not yet approved or cleared by the [place] FDA. When there are no FDA-approved or cleared tests available, and other criteria are met, FDA can make tests available under an emergency access mechanism called an Emergency Use Authorization (EUA). The EUA for this test is supported by the [place] of Health and Human Service's (HHS's) declaration [...] used). Performed By: #### C VDTBH #### [facility] [address] [place] [address] Dr. Geri Pradhan General Surgery Office/Clini c Noteon 03-25-2021 General Surgery Office/Clinic Note Chief Complaint in-office excisional biopsy HPI Staff Presents for in-office excisional biopsy right taoism and right lower extremity. No change since last evaluation. History of Present Illness here for excision of right taoism and RLE lesions; no change since recent [...] and draped; anesthetized with 1% lidocaine; right taoism lesion excised in an elliptical fashion down [...] arrest: Mother, Father and Sister. Normal [facility] Comment on above: Result Comment: Elec tronically Signed By: JIM DAVENPORT, Jose Gonzalez.giana\Date and Time Signed: 03/25/21 17:02 EST Ambulatory Clinical Summaryo n 02-12-2021 Ambulatory Clinical Summary {[id number]}CD:[id number] Normal [facility] General Surgery Office/Clini c Noteon 02-12-2021 General Surgery Office/Clinic Note Chief Complaint follow up in-office excisional biopsy HPI Staff 11 day post operative follow up post in-office excisional biopsy right taoism and right lower extremity. Sutures intact. Denies bleeding or drainage from incision site. History of Present Illness 11 days s/p excisional biopsy changing lesions right taoism and right lower extremity; doing well, no drainage; taoism lesion basal cell carcinoma, margins not commented [...] Brother. Cardiac arrest: Mother, Father and Sister. [facility] Comment on above: Result Comment: Elec tronically Signed By: JIM DAVENPORT, Jose Domínguez\Date and Time Signed: 02/12/21 13:16 EDT Pathology Noteon 02-06-2021 Pathology Note [id number] 0CD:127 Normal [facility] Ambulatory Clinical Summaryo n 01-11-2021 Ambulatory Clinical Summary {[id number]}CD:[id number] Normal [facility] Ambulatory Clinical Summary {[id number]}CD:[id number] Normal [facility] Physician Referralon 021 Physician Referral [id number] 0CD:127 Normal [facility] [id number] 03-02-2018 Protein mass conc NAME : ELAINE GUERRERO D : [id number] : 1960 Gender : FemaleRace : CaucasianORD : [id number] Procedure Date : Mar 02 2018 12:58:22Edit Date : Mar 02 2018 14:15:37 Diagnosis:NORMAL SINUS RHYTHMRIGHT ATRIAL ENLARGEMENTMINIMAL VOLTAGE CRITERIA FOR LVH, MAY BE NORMAL VARIANTBORDERLINE ECGNO PREVIOUS ECGS AVAILABLEConfirmed by CORNELIA ROGERS M.D. ([id number]) on 03/02/2018 2:15:27 PM Ventricular Rate : 86 BPMAtrial Rate : 86 BPMP-R Interval : 178 msQRS Duration : 72 msQ-T Interval : 374 msQTC Calculation(Bezet) : [address] : [address] : [address] : 79 degrees Test Reason : Location : 49 : [place] Overread By : KEN Maier,JEAN-CLAUDEYEdited By : KEN Maier,JEAN-CLAUDEYReferred By : DUGLAS FERNANDEZAcquired by : CELESTE GILLESPIE [facility] Vital Signs Date Time Vital Sign Value Performing Clinician Facility 12-24-2023 12:00-0400 Diastolic blood pressure 80 mm[Hg] MD Adithya Kenyon Work Phone: [facility] 12-24-2023 12:00-0400 Heart rate 106 /min MD Adithya Kenyon Work Phone: [facility] 12-24-2023 12:00-0400 Inhaled oxygen flow rate 2 L/min MD Adithya Kenyon Work Phone: [facility] 12-24-2023 12:00-0400 Respiratory rate 18 /min MD Adithya Kenyon Work Phone: [facility] 12-24-2023 12:00-0400 SaO2% (BldA) [Mass fraction] 96 % MD Adithya Kenyon Work Phone: [facility] 12-24-2023 12:00-0400 Systolic blood pressure 135 mm[Hg] MD Adithya Kenyon Work Phone: [facility] 12-24-2023 06:00-0400 Body weight 39.5 kg MD Adithya Kenyon Work Phone: [facility] 12-24-2023 04:00-0400 Body temperature 97.9 [degF] MD Adithya Kenyon Work Phone: [facility] 12-21-2023 13:57-0400 Body height 162.56 cm MD Adithya Kenyon Work Phone: [facility] 12-20-2023 22:30-0400 Diastolic blood pressure 78 mm[Hg] MD Adithya Kenyon Work Phone: [facility] 12-20-2023 22:30-0400 Heart rate 107 /min MD Adithya Kenyon Work Phone: [facility] 12-20-2023 22:30-0400 Inhaled oxygen flow rate 2 L/min MD Adithya Kenyon Work Phone: [facility] 12-20-2023 22:30-0400 Respiratory rate 18 /min MD Adithya Kenyon Work Phone: [facility] 12-20-2023 22:30-0400 SaO2% (BldA) [Mass fraction] 94 % MD Adithya Kenyon Work Phone: [facility] 12-20-2023 22:30-0400 Systolic blood pressure 126 mm[Hg] MD Adithya Kenyon Work Phone: [facility] 12-20-2023 21:00-0400 Inhaled oxygen concentration 28 % MD Adithya Kenyon Work Phone: [facility] 12-20-2023 20:01-0400 Body height 162.56 cm MD Adithya Kenyon Work Phone: [facility] 12-20-2023 20:01-0400 Body weight 42.18 kg MD Adithya Kenyon Work Phone: [facility] 12-20-2023 19:49-0400 Body temperature 97.3 [degF] MD Adithya Kenyon Work Phone: [facility] 12-03-2023 09:31-0400 Body height 162.56 cm [facility] 12-03-2023 09:31-0400 Body mass index (BMI) [Ratio] 16 kg/m2 [facility] 12-03-2023 09:31-0400 Body temperature 97.8 [degF] [facility] 12-03-2023 09:31-0400 Body weight 42.18 kg [facility] 12-03-2023 09:31-0400 Diastolic blood pressure 72 mm[Hg] [facility] 12-03-2023 09:31-0400 Heart rate 100 /min [facility] 12-03-2023 09:31-0400 Inhaled oxygen flow rate 2 L/min [facility] 12-03-2023 09:31-0400 Respiratory rate 20 /min [facility] 12-03-2023 09:31-0400 SaO2% (BldA) [Mass fraction] 94 % [facility] 12-03-2023 09:31-0400 Systolic blood pressure 115 mm[Hg] [facility] 11-17-2023 14:50-0400 Body height 162.6 cm Pacc 1 Work Phone: [facility] 11-17-2023 14:50-0400 Body mass index (BMI) [Ratio] 16.01 kg/m2 Pacc 1 Work Phone: [facility] 11-17-2023 14:50-0400 Body temperature 97.2 [degF] Pacc 1 Work Phone: [facility] 11-17-2023 14:50-0400 Body weight 42.3 kg Pacc 1 Work Phone: [facility] 11-17-2023 14:50-0400 Diastolic blood pressure 64 mm[Hg] Pacc 1 Work Phone: [facility] 11-17-2023 14:50-0400 Heart rate 118 /min Pacc 1 Work Phone: [facility] 11-17-2023 14:50-0400 Respiratory rate 16 /min Pacc 1 Work Phone: [facility] 11-17-2023 14:50-0400 SaO2% (BldA) [Mass fraction] 95 % Pac 1 Work Phone: [facility] Comment on above: 2l 11-17-2023 14:50-0400 Systolic blood pressure 121 mm[Hg] Pac 1 Work Phone: [facility] 09-29-2023 13:29-0400 Body height 162.56 cm [facility] 09-29-2023 13:29-0400 Body mass index (BMI) [Ratio] 16.1 kg/m2 [facility] 09-29-2023 13:29-0400 Body temperature 96.2 [degF] [facility] 09-29-2023 13:29-0400 Body weight 42.63 kg [facility] 09-29-2023 13:29-0400 Diastolic blood pressure 74 mm[Hg] [facility] 09-29-2023 13:29-0400 Heart rate 92 /min [facility] 09-29-2023 13:29-0400 Respiratory rate 20 /min [facility] 09-29-2023 13:29-0400 SaO2% (BldA) [Mass fraction] 91 % [facility] 09-29-2023 13:29-0400 Systolic blood pressure 134 mm[Hg] [facility] 09-16-2023 11:30-0400 Diastolic blood pressure 69 mm[Hg] Khushboo Mcintyre MD, MD Work Phone: [facility] 09-16-2023 11:30-0400 Heart rate 102 /min Khushboo Mcintyre MD, MD Work Phone: [facility] 09-16-2023 11:30-0400 Respiratory rate 16 /min Khushboo Mcintyre MD, MD Work Phone: [facility] 09-16-2023 11:30-0400 SaO2% (BldA) [Mass fraction] 97 % Khushboo Mcintyre MD, MD Work Phone: [facility] 09-16-2023 11:30-0400 Systolic blood pressure 146 mm[Hg] Khushboo Mcintyre MD, MD Work Phone: [facility] 09-16-2023 09:02-0400 Body temperature 97.5 [degF] Khushboo Mcintyre MD, MD Work Phone: [facility] 05-17-2023 12:14-0500 Heart rate 120 /min [facility] 05-17-2023 12:14-0500 Respiratory rate 22 /min [facility] 05-17-2023 11:04-0500 Diastolic blood pressure 76 mm[Hg] [facility] 05-17-2023 11:04-0500 Inhaled oxygen flow rate 2 L/min [facility] 05-17-2023 11:04-0500 SaO2% (BldA) [Mass fraction] 97 % [facility] 05-17-2023 11:04-0500 Systolic blood pressure 117 mm[Hg] [facility] 05-17-2023 07:32-0500 Body temperature 97.4 [degF] [facility] 05-17-2023 03:19-0500 Body weight 39.2 kg [facility] 05-14-2023 16:31-0500 Body height 162.56 cm [facility] 05-14-2023 01:40-0500 Diastolic blood pressure 57 mm[Hg] [facility] 05-14-2023 01:40-0500 Heart rate 119 /min [facility] 05-14-2023 01:40-0500 Inhaled oxygen flow rate 2 L/min [facility] 05-14-2023 01:40-0500 Respiratory rate 22 /min [facility] 05-14-2023 01:40-0500 SaO2% (BldA) [Mass fraction] 91 % [facility] 05-14-2023 01:40-0500 Systolic blood pressure 119 mm[Hg] [facility] 05-13-2023 16:49-0500 Body height 162.56 cm [facility] 05-13-2023 16:49-0500 Body temperature 97.9 [degF] [facility] 05-13-2023 16:49-0500 Body weight 40.36 kg [facility] 11-27-2022 10:34-0400 Body temperature 96.01 [degF] Abdi Israel MD Work Phone: [facility] 11-27-2022 10:34-0400 Body weight 45.18 kg Abdi Israel MD Work Phone: [facility] 11-27-2022 10:34-0400 Diastolic blood pressure 82 mm[Hg] Abdi Israel MD Work Phone: [facility] 11-27-2022 10:34-0400 Heart rate 110 /min Abdi Israel MD Work Phone: [facility] 11-27-2022 10:34-0400 Respiratory rate 20 /min Abdi Israel MD Work Phone: [facility] 11-27-2022 10:34-0400 SaO2% (BldA) [Mass fraction] 89 % Abdi Israel MD Work Phone: [facility] 11-27-2022 10:34-0400 Systolic blood pressure 132 mm[Hg] Abdi Irsael MD Work Phone: [facility] 06-26-2022 15:00-0400 Body height 162.56 cm Jose Conde Other [employer] Other 06-26-2022 15:00-0400 Body mass index (BMI) [Ratio] 18.02 kg/m2 Jose Conde Other [employer] Other 06-26-2022 15:00-0400 Body temperature 97.2 [degF] Jose Conde Other [facility] Other 06-26-2022 15:00-0400 Body weight 47.63 kg Jose Conde Other [employer] Other 06-26-2022 15:00-0400 Diastolic blood pressure 80 mm[Hg] Jose Conde Other [facility] Other 06-26-2022 15:00-0400 Systolic blood pressure 128 mm[Hg] Jose Conde Other [employer] Other 06-02-2022 14:09-0500 Body temperature 97.7 [degF] Abdi Israel MD Work Phone: [facility] 06-02-2022 14:09-0500 Body weight 49.35 kg Abdi Israel MD Work Phone: [facility] 06-02-2022 14:09-0500 Diastolic blood pressure 78 mm[Hg] Abdi Israel MD Work Phone: [facility] 06-02-2022 14:09-0500 Heart rate 116 /min Abdi Israel MD Work Phone: [facility] 06-02-2022 14:09-0500 Respiratory rate 18 /min Abdi Israel MD Work Phone: [facility] 06-02-2022 14:09-0500 SaO2% (BldA) [Mass fraction] 89 % Abdi Israel MD Work Phone: [facility] 06-02-2022 14:09-0500 Systolic blood pressure 125 mm[Hg] Abdi Israel MD Work Phone: [facility] 05-22-2022 15:15-0500 Body height 162.56 cm Jose Conde Other [employer] Other 05-22-2022 15:15-0500 Body mass index (BMI) [Ratio] 18.02 kg/m2 Jose Conde Other [facility] Other 05-22-2022 15:15-0500 Body temperature 98.2 [degF] Jose Conde Other [facility] Other 05-22-2022 15:15-0500 Body weight 47.63 kg Jose Nan Other [facility] Other 05-22-2022 15:15-0500 Diastolic blood pressure 78 mm[Hg] Jose Conde Other [facility] Other 05-22-2022 15:15-0500 Systolic blood pressure 130 mm[Hg] Jose Conde Other [employer] Other 05-09-2022 10:30-0500 Diastolic blood pressure 80 mm[Hg] Yasmin Waggoner MD Work Phone: [facility] 05-09-2022 10:30-0500 Heart rate 99 /min Yasmin Waggoner MD Work Phone: [facility] 05-09-2022 10:30-0500 Respiratory rate 16 /min Yasmin Waggoner MD Work Phone: [facility] 05-09-2022 10:30-0500 SaO2% (BldA) [Mass fraction] 97 % Yasmin Waggoner MD Work Phone: [facility] 05-09-2022 10:30-0500 Systolic blood pressure 134 mm[Hg] Yasmin Waggoner MD Work Phone: [facility] 05-09-2022 10:02-0500 Body temperature 98.2 [degF] Yasmin Waggoner MD Work Phone: [facility] 05-09-2022 07:03-0500 Body height 162.6 cm Yasmin Waggoner MD Work Phone: [facility] 05-09-2022 07:03-0500 Body weight 47.63 kg Yasmin Waggoner MD Work Phone: [facility] 03-14-2022 11:22-0500 Body temperature 97.81 [degF] Abdi Israel MD Work Phone: [facility] 03-14-2022 11:22-0500 Body weight 49.9 kg Abdi Israel MD Work Phone: [facility] 03-14-2022 11:22-0500 Heart rate 101 /min Abdi Israel MD Work Phone: [facility] 03-14-2022 11:22-0500 Respiratory rate 16 /min Abdi Israel MD Work Phone: [facility] 03-14-2022 11:22-0500 SaO2% (BldA) [Mass fraction] 96 % Abdi Israel MD Work Phone: [facility] 06-06-2021 10:01-0500 Body temperature 97.7 [degF] Abdi Israel MD Work Phone: [facility] 06-06-2021 10:01-0500 Body weight 51.71 kg Abdi Israel MD Work Phone: [facility] 06-06-2021 10:01-0500 Diastolic blood pressure 67 mm[Hg] Abdi Israel MD Work Phone: [facility] 06-06-2021 10:01-0500 Heart rate 97 /min Abdi Israel MD Work Phone: [facility] 06-06-2021 10:01-0500 Respiratory rate 20 /min Abdi Israel MD Work Phone: [facility] 06-06-2021 10:01-0500 SaO2% (BldA) [Mass fraction] 93 % Abdi Israel MD Work Phone: [facility] 06-06-2021 10:01-0500 Systolic blood pressure 120 mm[Hg] Abdi Israel MD Work Phone: [facility] Encounters Encounter Date Encounter Type Care Provider Facility Start: 12-24-2023 End: 12-28-2023 Telephone encounter Abdi Israel MD Work Phone: [facility] Comment on above: Appointment Confirma tion Start: 12-21-2023 Non-patient / Non-visit MD Eloina Kenyon Work Phone: [facility] Work Phone: Start: 12-21-2023 End: 12-24-2023 Evaluation and management of inpatient MD Adithya Kenyon Work Phone: [facility] Work Phone: Start: 12-20-2023 Evaluation and manag ement of inpatient MD Adithya Kenyon Work Phone: [facility] Work Phone: Start: 12-20-2023 observation encounter MD Idalia Kenyon Work Phone: [facility] Work Phone: Start: 12-03-2023 End: 12-03-2023 ambulatory [facility] Work Phone: Start: 12-03-2023 End: 12-03-2023 Patient encounter procedure [facility] Work Phone: Start: 11-19-2023 Telephone encounter Teo Craft MD Work Phone: [facility] [place] Comment on above: Patient Update Start: 11-18-2023 End: 11-18-2023 ambulatory ADITHYA M Zachary Facility:[facility] Start: 11-17-2023 End: 11-17-2023 ambulatory [facility] Facility:[facility] Start: 11-17-2023 [facility]counter for other [facility]ced[facility] examination [facility] Start: 11-17-2023 End: 11-17-2023 Admission to [place] [id number] Work Phone: Pre Anesthesia Start: 11-17-2023 End: 11-17-2023 Anesthesia consultation [place] [id number] Work Phone: Pre Anesthesia Comment on above: Preoperative examina tion (Primary Dx); 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); Non-small cell cancer of left lung (HCC); Chronic respiratory failure with hypoxia (HCC); COPD, severe (HCC); Supplemental oxygen dependent; Former smoker Start: 11-17-2023 End: 11-17-2023 Preprocedural examination done [place] [id number] Work Phone: [facility] Work Phone: Start: 11-16-2023 End: 12-09-2023 Telephone encounter Abdi Israel MD Work Phone: Radiation Oncology Comment on above: Results Start: 10-27-2023 End: 10-27-2023 ambulatory ABDI ISRAEL Facility:[facility] Start: 10-27-2023 End: 10-27-2023 Patient encounter procedure Teo Craft MD Work Phone: Otolaryngology Comment on above: Lymphadenopathy (Marysol rowan Dx); Non-small cell cancer of left lung (HCC); 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) Start: 09-29-2023 End: 09-29-2023 ambulatory [facility] Work Phone: Start: 09-29-2023 End: 09-29-2023 Patient encounter procedure [facility] Pul[facility] Work Phone: Start: 09-21-2023 Telephone encounter Abdi Israel MD Work Phone: Cancer Appts Comment on above: Appointment Confirma tion Start: 09-16-2023 ambulatory [facility] Facility: [facility] Start: 09-16-2023 End: 09-16-2023 Subsequent hospital visit by physician Khushboo Mcintyre MD Work Phone: HOSP MAIN [phone] Comment on above: Malignant neoplasm o f unspecified part of unspecified bronchus or lung (HCC) [C34.90] Start: 09-14-2023 End: 09-14-2023 ambulatory [facility] Facility:[facility] Start: 09-09-2023 Orders Only Osito Galicia MD Work Phone: RADIO HOSP Comment on above: Neoplasm (Primary Dx ) Start: 09-08-2023 Telephone encounter Abdi Israel MD Work Phone: [facility] INTERVENTIONAL RADIOLOGY Comment on above: Cervical lymph node bx Biopsy Request Start: 09-01-2023 End: 09-01-2023 ambulatory ABDI ISRAEL Facility:[facility] Start: 09-01-2023 End: 09-01-2023 Subsequent hospital visit by physician Arrival Time Radiology Work Phone: Radiology Pet CT Comment on above: Malignant neoplasm o f unspecified part of unspecified bronchus or lung (HCC) [C34.90] Start: 08-17-2023 End: 08-17-2023 ambulatory CARLA MONTAGUE Not Available Start: 08-14-2023 Telephone encounter Abdi Israel MD Work Phone: Radiation Oncology Comment on above: Patient Update Start: 07-14-2023 End: 07-14-2023 ambulatory ANA DRIVER Not Available Start: 05-25-2023 End: 05-25-2023 ambulatory ADITHYA KENYON Facility:[facility] Start: 05-20-2023 Telephone encounter Abdi Israel MD Work Phone: Radiation Oncology Comment on above: Patient Update; Futu re Appointment Start: 05-14-2023 End: 05-17-2023 Evaluation and management of inpatient Ally Warner Facility:[facility] Start: 05-14-2023 Non-patient / Non-visit [facility] Work Phone: Start: 04-09-2023 [...] 06-26-2022 End: 06-26-2022 ambulatory Jose Conde Other [employer] Other Start: 06-26-2022 Office outpatient vi sit 25 minutes Jose LORENZANA Infectious Disease Start: 06-10-2022 End: 06-10-2022 ambulatory Jose Conde Other [employer] Other Start: 06-10-2022 Telephone encounter Jose Conde [facility] Infectious Disease Start: 06-02-2022 End: 06-02-2022 Patient encounter procedure Abdi Israel MD Work Phone: Radiation Oncology Comment on above: Non-small cell cance r of left lung (HCC) (Primary Dx) Start: 05-23-2022 End: 05-23-[address] JOSE CONDE Facility:[facility] Start: 05-22-2022 End: 05-23-[address] JOSE CONDE [employer] [place] [employer] Other Start: 05-22-2022 Office outpatient ne w 45 minutes Jose LORENZANA Infectious Disease Start: 05-14-2022 Telephone encounter Abdi Israel MD Work Phone: Radiation Oncology Comment on above: Appointment Start: 05-09-2022 End: 05-09-2022 Subsequent hospital visit by physician Yasmin Waggoner MD Work Phone: Admitting Comment on above: Bronchiolar disease [J98.09] Start: 05-08-2022 Encounter for preprocedural laboratory examination DR DOCTOR DAS [facility] Start: 05-06-2022 End: 05-06-[address] [...] with patient Vitor Kaur MD Work Phone: [facility] Start: 04-24-2022 Telephone encounter [address]ina Hassan CT Pulmonary Medicine Comment on above: Appointment (PreOp B ronneil) Start: 04-23-2022 Orders Only Alicja Reece APRN.HOOP COILER Work Phone: Admitting Comment on above: Preoperative examina tion (Primary Dx) Appointment Start: 04-23-2022 Preprocedural examin ation done Alicja Reece APRN.HOOP COILER Work Phone: Admitting Start: 04-22-2022 ambulatory Vitor [...] of lung Start: 03-02-2018 Patient encounter procedure [facility] Start: 03-24-2017 Ambulatory JAYE HOUGH Facil [id number]:[id number] Start: 03-24-2017 Ambulatory Adithya Kenyon Fac ility:[id number] Procedures Date Procedure Procedure Detail Performing Clinician Start: 12-22-2023 Investigation of transfusion reaction MD Adithya Kenyon Work Phone: Start: 12-21-2023 Methicillin resistan t Staphylococcus aureus culture MD Adithya Kenyon Work Phone: Start: 12-21-2023 Respiratory Panel (PCR) MD Adithya Kenyon Work Phone: Start: 12-20-2023 Plain chest X-ray MD Trujillo Work Phone: Start: 10-27-2023 US NECK (POC) HNI USE ONLY Teo Craft MD Work Phone: Start: 09-01-[address] atten uation skull base mid-thigh Abdi Israel MD Work Phone: Start: 09-01-2023 Gluc bld gluc mntr d ev cleared fda spec home use [facility] Provider Start: 05-09-2022 [facility] incl fluor g dnce dx w/cell washg spx Abdi Israel MD Work Phone: Start: 06-06-2021 Adult depression scr eening assessment Abdi Israel MD Work Phone: Plan of Treatment Date Care Activity Detail Author Start: 11-16-2026 Diabetes Screening Diabetes Screening [facility] Start: 04-24-2025 DIABETES SCREEN DIABETES SCREEN [facility] Start: 04-24-2025 Diabetes Screening Diabetes Screening [facility] Start: 05-23-2024 End: 05-23-2024 Patient encounter procedure 05/23/2024 11:00 AM EST Office Visit Radiation Oncology [address] [place] [address] Abdi Israel MD [address] [place] [address] Followup Radiation Oncology Comment on above: Followup Start: 05-18-2024 End: 05-18-2024 Patient encounter procedure 05/18/2024 10:15 AM EST Appointment Radiology Pet CT [address] [place] [address] CT [address] Pet CT Comment on above: CT CHEST Start: 01-29-2024 End: 01-29-2024 Patient encounter procedure 01/29/2024 2:00 PM EDT Office Visit Radiation Oncology [address] [place] [address] Abdi Israel MD [address] [place] [address] F/U after CT Scan Radiation Oncology Comment on above: F/U after CT Scan Start: 01-18-2024 End: 01-18-2024 Patient encounter procedure 01/18/2024 10:45 AM EDT Appointment Radiology Pet CT [address] [place] [address] CT Chest w/IV Radiology Pet CT Comment on above: CT Chest w/IV Start: 12-24-2023 [facility] Start: 12-22-2023 Microbial culture of sputum [facility] Start: 12-22-2023 [facility] Start: 12-21-2023 Administration of prophylactic treatment [facility] Start: 12-21-2023 End: 12-21-2023 ambulatory 12/21/2023 1:25 PM EDT [facility] Otolaryngology [address] [address] Teo Craft MD [address] [facility] [place] [address] post op Otolaryngology Comment on above: post op Start: 12-21-2023 Administration of prophylactic treatment [facility] Start: 12-21-2023 [facility] Start: 12-20-2023 Consultation [facility] Start: 12-20-2023 Hospital admission [facility] Start: 12-20-2023 Respiratory pathogens DNA and RNA panel - Nasopharynx by KRUNAL with non-probe detection [facility] Start: 12-20-2023 [facility] Start: 12-20-2023 Plain chest X-ray XR chest 1V portable [facility] Start: 12-20-2023 XR Chest Single view [facility] Start: 12-18-2023 End: 12-18-2023 Patient encounter procedure 12/18/2023 3:00 PM EDT Office Visit Radiation Oncology [address] [place] [address] Abdi Israel MD [address] [place] [address] followup Radiation Oncology Comment on above: followup Start: 12-15-2023 End: 12-15-2023 Patient encounter procedure 12/15/2023 2:15 PM EDT Appointment Radiology Pet CT [address] [place] [address] CT [address] CT Comment on above: CT chest Start: 12-15-2023 End: 12-15-2023 Patient encounter procedure 12/15/2023 12:45 PM EDT Appointment Radiology Pet CT [address] [place] [address] Comment on above: PET Start: 12-13-2023 Covid-19 Vaccine ( season) Covid-19 Vaccine ( season) [facility] Start: 12-13-2023 Influenza vaccination Influenza Vaccine (#1) [facility] Start: 11-18-2023 End: 11-18-2023 Admission to same day surgery center 11/18/2023 4:10 PM EDT - 11/18/2023 6:42 PM EDT Surgery Admitting [address] [place] [address] Teo Craft MD [address] [place] [address] BIOPSY OR EXCISION LYMPH NODE(S) OPEN, DEEP CERVICAL Admitting Comment on above: BIOPSY OR EXCISION LYMPH NODE(S) OPEN, D EEP CERVICAL Start: 11-18-2023 End: 11-18-2023 Bx/exc lymph node open deep cervical node BIOPSY OR EXCISION LYMPH NODE(S) OPEN, DEEP CERVICAL Non-small cell cancer of left lung (HCC) Lymphadenopathy 11/18/2023 4:10 PM EDT [facility] Start: 11-18-2023 Subsequent hospital visit by physician 11/18/2023 4:10 PM EDT Hospital Encounter Admitting [address] [place] [address] Teo Craft MD [address] [place] [address] Non-small cell cancer of left lung (HCC) [C34.92] Admitting Comment on above: Non-small cell cancer of left lung (HCC) [C34.92] Start: 10-27-2023 End: 10-27-2023 Patient encounter procedure 10/27/2023 11:00 AM EDT Office Visit Otolaryngology [address] [address] Teo Craft MD [address] [place] [address] excisional biopsy cervical lymph node; needle biopsy was negative Otolaryngology Comment on above: excisional biopsy cervical lymph node; n eedle biopsy was negative Start: 09-16-2023 End: 09-16-2023 Admission to same day surgery center 09/16/2023 10:00 AM EDT - 09/16/2023 11:00 AM EDT Surgery Angio [address] [place] [address] [place], [address] [facility] [address] [place] [address] BIOPSY OR EXCISION LYMPH NODES(S) NEEDLE SUPERFICIAL Angio Comment on above: BIOPSY OR EXCISION LYMPH NODES(S) NEEDLE SUPERFICIAL Start: 09-16-2023 End: 09-16-2023 Bx/exc lymph node needle superficial BIOPSY OR EXCISION LYMPH NODES(S) NEEDLE SUPERFICIAL Malignant neoplasm of unspecified part of unspecified bronchus or lung (HCC) 09/16/2023 10:00 AM EDT ANGIO HB6 Start: 09-16-2023 Subsequent hospital visit by physician 09/16/2023 10:00 AM EDT Hospital Encounter Angio [address] [place] [address] [place], [address] [facility] [address] [place] [address] Malignant neoplasm of unspecified part of unspecified bronchus or lung (HCC) [C34.90] Angio Comment on above: Malignant neoplasm of unspecified part o f unspecified bronchus or lung (HCC) [C34.90] Start: 09-09-2023 End: 12-09-2023 CBC panel - Blood by Automated count COMPLETE BLOOD COUNT Lab Routine Neoplasm Expected: 09/09/2023, Expires: 12/09/2023 [facility] Work Phone: Comment on above: Expected: 09/09/2023, Expires: Start: 09-01-2023 End: 09-01-2023 Patient encounter procedure 09/01/2023 12:45 PM EDT Appointment Radiology Pet CT [address] [place] [address] [place] [address] Comment on above: PET Start: 05-17-2023 [facility] Start: 05-14-2023 Administration of prophylactic treatment [facility] Start: 05-14-2023 End: 05-14-2023 [facility] Start: 05-14-2023 Hospital admission [facility] Start: 05-14-2023 Microbial culture of sputum [facility] Start: 05-13-2023 CT Chest [facility] Start: 05-13-2023 End: 07-13-2023 CREATININE BLD CREATININE BLD Lab Routine Neoplasm of lung Expected: 05/13/2023 (Approximate), Expires: 07/13/2023 [facility] Work Phone: Comment on above: Expected: 05/13/2023 (Approximate), Expi res: 07/13/2023 Start: 05-13-2023 End: 12-27-2023 CT CHEST W IVCON CT CHEST W IVCON Radiology Routine Neoplasm of lung Expected: 05/13/2023 (Approximate), Expires: 12/27/2023 [facility] Work Phone: Comment on above: Expected: 05/13/2023 (Approximate), Expi res: 12/27/2023 Start: 04-13-2023 Behavioral Health Screening Behavioral Health Screening [facility] Start: 04-13-2023 Depression Assessment Depression Assessment [facility] Start: 12-12-2022 Covid-19 Vaccine ( season) Covid-[address] () [facility] Start: 12-12-[address] [facility] Start: 06-06-2022 Adult depression screening assessment DEPRESSION SCREENING [facility] Start: 06-06-2022 End: 06-06-2022 CREATININE BLD CREATININE BLD Lab Routine Non-small cell cancer of left lung (HCC) Expected: 06/06/2022, Expires: 06/06/2022 [facility] Work Phone: Comment on above: Expected: 06/06/2022, Expires: 3 Start: 06-06-2022 End: 07-06-2022 Ct thorax w/contrast material CT CHEST W IVCON Radiology Routine Non-small cell cancer of left lung (HCC) Neoplasm of lung Expected: 06/06/2022, Expires: 07/06/2022 [facility] Work Phone: Comment on above: Expected: 06/06/2022, Expires: 3 Start: 04-24-2022 End: 06-24-2022 SARS-CoV-2 (COVID-19) RNA [Presence] in Respiratory specimen by KRUNAL with probe detection INTERMEDIATE RAPID COVID Microbiology Routine Preoperative examination Expected: 04/24/2022, Expires: 06/24/2022 [facility] Work Phone: Comment on above: Expected: 04/24/2022, Expires: 3 Start: 04-22-2022 End: 06-22-2022 Basic metabolic 2000 panel - Serum or Plasma BASIC METABOLIC PNL Lab STAT Lung mass Expected: 04/22/2022, Expires: 06/22/2022 [facility] Work Phone: Comment on above: Expected: 04/22/2022, Expires: 3 Start: 04-22-2022 End: 06-22-2022 CBC W Auto Differential panel - Blood CBC + DIFF Lab STAT Lung mass Expected: 04/22/2022, Expires: 06/22/2022 [facility] Work Phone: Comment on above: Expected: 04/22/2022, Expires: 3 Start: 04-13-20[address]ESS[address] [facility] Start: 12-12-2021 Influenza vaccination INFLUENZA (#1) [facility] Start: 2021 RSV Vaccine (1 - 1-dose 60+ series) RSV Vaccine (1 - 1-dose 60+ series) [facility] Start: 04-13-2021 DEPRESSION ASSESSMENT DEPRESSION ASSESSMENT [facility] Start: 03-02-2021 DIABETES SCREEN DIABETES SCREEN [facility] Start: 08-26-2011 SHINGRIX VACCINE (1 of 2) SHINGRIX VACCINE (1 of 2) [facility] Start: 2006 COLOGUARD (FIT-DNA) COLOGUARD (FIT-DNA) [facility] Start: [address] [facility] Start: 2006 COLORECTAL CANCER SCREENING COLORECTAL CANCER SCREENING [facility] Start: [address] [facility] Start: 2006 FECAL OCCULT BLOOD FECAL OCCULT BLOOD [facility] Start: 2006 Lipid panel Lipid Screening [facility] Start: 2006 [address] SCRE[address] [facility] Start: 2006 Screening for malignant neoplasm of colon [facility] Start: [address] [facility] Start: [address] [facility] Start: 2001 Screening for malignant neoplasm of breast Mammogram Screening [facility] Start: 08-26-1991 HPV TEST[address] TEST[address] [facility] Start: 08-26-1991 Screening for malignant neoplasm of cervix HPV Testing [facility] Start: 08-26-1991 Zoledronic acid therapy ALPHA-1 ANTITRYPSIN DEFICIENCY SCREENING [facility] Start: 1982 PAP TESTING PAP TESTING [facility] Start: 1982 Screening for malignant neoplasm of cervix [facility] Start: [address] [facility] Start: 08-26-1979 ANNUAL PCP TEAM CHRONIC DISEASE VISIT ANNUAL PCP TEAM CHRONIC DISEASE VISIT [facility] Start: 08-26-1979 Anxiety Screening Anxiety Screening [facility] Start: 08-26-1979 Depression Scre[address] Depression Screening [facility] Start: 08-26-1979 HEPATITIS C SCREENING HEPATITIS C SCREENING [facility] Start: 08-26-1979 Hepatitis C screening Hepatitis C Screening [facility] Start: 08-26-1979 HIV [address] HIV S[address] [facility] Start: 08-26-[address] HIV screening HIV Screening [facility] Start: 08-26-[address] [facility] Start: 08-26-1967 PNEUMOCOCCAL (1 - PCV) PNEUMOCOCCAL (1 - PCV) [facility] ic Start: 08-26-1967 Pneumococcal vaccination Pneumococcal Vaccine (1 of 2 - PCV) [facility] Start: 1966 COVID-19 VACCINE (1) COVID-19 VACCINE (1) [facility] Start: 02-25-1962 COVID-19 VACCINE (#1) COVID-19 VACCINE (#1) [facility] Albumin/Globulin ratio [facility] Anion gap measurement [facility] Basophils [#/volume] in Blood by Automated count [facility] Basophils/100 leukocytes in Blood by Automated count [facility] Bx/exc lymph node op en superficial BIOPSY/REMOVAL, LYMPH NODE(S) Procedures ALEKS Non-small cell cancer of left lung (HCC) 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) Ordered: 09/21/2023 [facility] Work Phone: Comment on above: Ordered: 09/21/2023 End: 12-26-2024 CT Chest W contrast IV CT CHEST W IVCON Radiology Routine Malignant neoplasm of unspecified part of unspecified bronchus or lung (HCC) 1 Occurrences starting 11/27/2023 until 12/26/2024 [facility] Comment on above: 1 Occurrences starting 11/27/2023 until 12/26/2024 End: 05-22-2023 Ct thorax w/o contrast material CT CHEST WO IVCON Radiology Routine Lung mass 1 Occurrences starting 04/22/2022 until 05/22/2023 [facility] Work Phone: Comment on above: 1 Occurrences starting 04/22/2022 until 05/22/2023 CYTOLOGY NON-CAR ESCORT [facility] Work Phone: Comment on above: Release Upon Ordering for 1 Occurrences starting 05/09/2022, 1 completed End: 04-22-2023 ECG COMPLETE ECG COMPLETE ECG STAT Lung mass 1 Occurrences starting 04/22/2022 until 04/22/2023 [facility] Work Phone: Comment on above: 1 Occurrences starting 04/22/2022 until 04/22/2023 Eosinophils/100 leukocytes in Blood by Automated count [facility] Erythrocyte distribution width [Ratio] by Automated count [facility] Erythrocytes [#/volu me] in Blood [facility] Globulin [Mass/volum e] in Serum [facility] Hematocrit [Volume Fraction] of Blood [facility] Hemoglobin [Mass/volume] in Blood [facility] Leukocytes [#/volume ] corrected for nucleated erythrocytes in Blood by Automated coun [facility] Leukocytes [#/volume ] in Blood [facility] Lymphocytes [#/volum e] in Blood by Automated count [facility] Lymphocytes/100 leukocytes in Blood by Automated count [facility] MCH [Entitic mass] b y Automated count [facility] MCHC [Mass/volume] b y Automated count [facility] MCV [Entitic volume] by Automated count [facility] Monocytes [#/volume] in Blood by Automated count [facility] Monocytes/100 leukocytes in Blood by Automated count [facility] Neutrophils [#/volum e] in Blood by Automated count [facility] Neutrophils/100 leukocytes in Blood by Automated count [facility] Nucleated erythrocyt es [Presence] in Blood by Automated count [facility] Patient Education [facility] Work Phone: Patient referral [facility] Work Phone: End: 03-22-[address] attenuation skull base mid-thigh NM PET/CT SKULL-THIGH INITIAL Radiology Routine Neoplasm of lung 1 Occurrences starting 02/21/2022 until 03/22/2023 [facility] Work Phone: Comment on above: 1 Occurrences starting 02/21/2022 until 03/22/2023 End: 09-15-2024 PET+CT Guidance for localization of tumor of Skull base to mid-thigh-- W 18F-FDG IV NM PET/CT SKULL-THIGH SUBSEQUENT Radiology Routine Malignant neoplasm of unspecified part of unspecified bronchus or lung (HCC) 1 Occurrences starting 08/17/2023 until 09/15/2024 [facility] Work Phone: Comment on above: 1 Occurrences starting 08/17/2023 until 09/15/2024 End: 12-26-2024 PET+CT Guidance for localization of tumor of Skull base to mid-thigh-- W 18F-FDG IV NM PET/CT SKULL-THIGH SUBSEQUENT Radiology Routine Malignant neoplasm of unspecified part of unspecified bronchus or lung (HCC) 1 Occurrences starting 11/27/2023 until 12/26/2024 [facility] Work Phone: Comment on above: 1 Occurrences starting 11/27/2023 until 12/26/2024 Platelet mean volume [Entitic volume] in Blood by Automated count [facility] Platelets [#/volume] in Blood [facility] SARS-CoV-2 (COVID-19 ) RNA [Presence] in Respiratory specimen by KRUNAL with probe detection SELF CHECK COVID Microbiology Routine Lung mass Ordered: 04/22/2022 [facility] Work Phone: Comment on above: Ordered: 04/22/2022 SURGICAL PATHOLOGY [facility] Work Phone: Comment on above: Release Upon Ordering for 1 Occurrences starting 05/09/2022, 1 completed End: 09-16-2023 SURGICAL PATHOLOGY [facility] Work Phone: Comment on above: ONCE for 1 Occurrences starting 09/16/19 24 until 09/16/2023, 1 completed [facility] Immunizations Immunization Date Immunization Notes Care Provider Fa cili 02-27-2023 influenza virus vacc ine, unspecified formulation Pac 1 Work Phone: [facility] 03-04-2022 influenza, injectabl e, quadrivalent, preservative free Vitor Kaur MD Work Phone: [facility] 03-04-2022 influenza virus vacc ine, unspecified formulation Abdi Israel MD Work Phone: [facility] 03-19-2021 influenza, injectabl e, quadrivalent, preservative free Vitor Kaur MD Work Phone: [facility] 02-22-2021 influenza virus vacc ine, unspecified formulation Vitor Kaur MD Work Phone: [facility] 03-02-2020 Influenza, injectabl e, Madin Redford Canine Kidney, preservative free, quadrivalent Vitor Kaur MD Work Phone: [facility] 02-02-2019 Influenza, injectabl e, Madin Redford Canine Kidney, preservative free, quadrivalent Vitor Kaur MD Work Phone: [facility] 03-02-2018 influenza, injectabl e, quadrivalent, contains preservative Abdi Israel MD Work Phone: [facility] Payers Date Payer Category Payer Self-pay [id number] 2018 Medicaid [facility] MEDICAID [id number] 2018-Present [phone] [address] [place] [address] Medicaid [id number] 2018 Medicaid [id number] 1961 Unknown [id number] 1961 Unknown [id number] [id number] 1961 Unknown [id number] [id number] 1961 Unknown [id number] [id number] 1961 Unknown [id number] [id number] 1961 Unknown [id number] [id number] 1961 Unknown [id number] 2.16.840.1.082285.3.579.2.593 1961 Unknown [id number] 2.16.840.1.946677.3.579.2.593 1961 Unknown [id number] 2.16.840.1.397934.3.579.2.593 1961 Unknown [id number] 2.16.840.1.929813.3.579.2.1259 1961 Unknown [id number] 2.16.840.1.855557.3.579.2.1259 1961 Unknown [id number] 2.16.840.1.944223.3.579.2.1259 1959 Self-pay [id number] 1959 Unknown [id number] 1959 Unknown [id number] [id number] Unknown [id number] [id number]1 Unknown [id number] Social History Date Type Detail Facility Start: 03-02-2018 End: 03-14-2022 Tobacco smoking status NHIS Ex-smoker [facility] Start: 04-13-1977 End: 04-13-2012 History of tobacco use Current smoker [facility] Start: 03-02-2018 End: 11-27-2022 Cigarettes smoked current (pack per day) - Reported 1.5 [facility] Start: 03-02-2018 End: 03-14-2022 Tobacco use and exposure Smokeless tobacco non-user [facility] Start: 06-06-2021 End: 11-17-2023 Alcohol intake Current drinker of alcohol (finding) [facility] Start: 1960 Sex Assigned At Not on file [facility] Start: 05-07-2021 End: 03-14-2022 Exposure to SARS-CoV-2 (event) Not sure [facility] Start: 04-13-1977 End: 04-13-2012 History of tobacco use Cigarette Smoker [facility] Work Phone: Start: 03-14-2022 End: 11-27-[address] [facility] Adult Depression Screening Assessment 0 [facility] Start: 1960 Sex Assigned At Female F [facility] Goals Date Patient Goal Desired Activity /State Functional Status Date Assessment Result Facility 12-24-2023 Functional status Patient at Baseline [facility] Work Phone: Mental Status Date Assessment Result Facility 12-24-2023 Cognitive function Cognitive Sta tus Patient at Baseline [facility] Work Phone: Clinical Notes 05-14-2011 to 12-28-2023 Telephone Encounter - Adelia Raygoza [facility] - 12/28/2023 10:54 AM EDTTelephone Encounter - Adelia Raygoza [facility] - 12/28/2023 10:54 AM EDT Note Date & Type Note Facility 12-28-2023 Telephone encounter Note Form atting of this note might be different from the original. I talked to the Patient and have her scheduled for her CT Scan on Thursday01/18/24 at 1045 am, and her Follow up appointment with Dr. Israel on Thursday01/29/24 at [address] [facility] 12-28-2023 Miscellaneous Notes Formattin g of this note might be different from the original. I talked to the Patient and have her scheduled for her CT Scan on Thursday01/18/24 at 1045 am, and her Follow up appointment with Dr. Israel on Thursday01/29/24 at 2 pm. HARJINDER Mcgowan Cinthia Guerrero --Omaira was dc'd from [facility]-She hasn't called in to reschedule her appt's. Tiff will you please call Omaira to reschedule PET, CT and follow up with LORENZO? Thanks I would not schedule CT chest until at least a week after she completes her antibiotics .....she should complete steroids by 01/06 so any time after 01/13 should be ok. Thanks! Girls, Patients PET was denied lindy is aware, so please just schedule CT and followup when rashid said, thanks Called left her a message to call back to schedule. documented in this encounter [facility] 12-24-2023 Discharge summary Note Date/Time December 24, 2023 8:38am [facility] [address] [place] [address] Discharge Summary Signed with Addjanee Patient: Cinthia Guerrero MR#: [id number] : 1960 Acct:[id number] Age/Sex: 63 / F Adm Date: 4 Loc: Room: [address] [place] [address]: Cassandra Andersen MD Copies to: MD Cassandra Melvin MD~ ADDENDUM1 Additional Discharge Diagnosis: Severe protein-energy (calorie) malnutrition, present on admission Addendum Documented By: Cassandra Andersen MD 12/24/23 1214 Addendum Signed By: <Electronically signed by Cassandra Andersen MD> 12/24/23 1214 Providers Date of Discharge: 12/24/23 Discharging Provider: Cassandra Andersen Primary Care Provider: Adithya Kenyon Consults: 12/20/23 22:58 Consult to Pulmonology Routine Comment: Consulting Provider: Denver Rasmussen Reason For Exam: COPD exacerbation Has Provider Been Notified: Yes Date of Notification: 12/21/23 Time of Notification: 07:50 Extended Comment: Dr Bruces patient 12/21/23 09:09 Consult to Dietitian Routine Comment: Reason for Consult: PO Supplement Eval&Order Discharge Diagnosis (1) Chronic hypercapnic respiratory failure: (2) COPD (chronic obstructive pulmonary disease): (3) Pulmonary cachexia due to COPD: (4) Sleep apnea, obstructive: (5) Cachexia: (6) Acute hypoxic respiratory failure: (7) Chronic respiratory failure with hypoxia: (8) Viral pneumonia: Final Diagnosis Final Discharge Diagnosis: As listed above and others that are not listed Summary Hospital Course Hospital course: Mrs Guerrero is a 63-year-old female with known diagnosis of chronic hypoxic and hypercapnic respiratory failure and COPD. Patient came in with worsening shortness of breath and diagnosed having viral pneumonia with rhino as well as COPD exacerbation, acute on chronic hypoxic and hypercapnic respiratory failure. Patient was having severe respiratory distress, using accessory muscles, not able to speak in full sentences, dyspneic at rest requiring inpatient stay untilyesterday evening when patient started to make a turn. This morning she is feeling much better. Significant resolution of wheezing. Significant improvement of air entry. Patient is back to baseline state and ready to be discharged home. 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 Patient was recommended to drink Ensure 2-3 times aday. Patient is to follow-up with PCP and pulmonary postdischarge. Patient is at risk having lung cancer therefore I recommend patient to continue to have yearly low-dose radiation CAT scan of the chest to be arranged by PCP orpulmonology to screen for lung cancer. Patient has multiple complex medical issues as listed above and others that are not listed. Patient is doing much better. She is ready physically and psychologically to be discharged home. At this time, I do not have any clear orstrong clinical justification to extend inpatient hospitalization. Patient however will require close and frequent monitoring as well as additional work-up, investigation and therapeutic intervention that could take place from this point on post discharge. That is to prevent relapse, decompensation, rehospitalization and other medical implications. I instructed patient to ask her primary care doctor to obtain [facility] record entirely to address abnormalities seen on labs and imagingthat I have and have not addressed during this hospitalization, follow-up on pending blood work, imaging and pathology is if available and to follow-up on needed medical care in the outpatient setting. Time Spent with Patient Time spent providing/coordinating discharge services (# min): 40 Discharge Plan Discharge Plan Patient Disposition: Home Additional Instructions: I may not have addressed or treated all of your medical illnesses or the abnormal blood work or imaging studies during this hospitalization. Please ask your primary care provider to obtain [facility] records entirely to follow up on all of the abnormal physical, laboratory, and imaging findings that I have not addressed. Please return back to the emergency room or seek medical attention if your symptoms worsen or return. I would recommend that you continue to get low-dose radiation CAT scan of the chest every year to be arranged by primary care doctor or lung specialist to screen for lung cancer Discharging you from [facility] does not mean that your medical care ends here and now. You may still need additional monitoring, work up, investigation, and treatment plan to be handled from this point on by out patient providers including your primary care provider and specialists. For any medication question, please contact your retail pharmacist or your primary care provider. Thank you. Instructions: Know your Meds Prescriptions: New alprazolam 0.25 mg Tablet 0.25 mg PO TID PRN (Reason: Anxiety) 5 Days Qty: 14 0RF prednisone 10 mg tablet 10 mg PO DIRECTED Qty: 24 0RF Rx Instructions: Take 1 tablet 3 times a day for 4 days then 1 tablet twice a day for 4 days then 1 tablet daily for 4 days then resume your daily prednisone 5 mg daily. Continued budesonide 0.5 mg/2 mL suspension for nebulization 0.5 mg inhalation Q12H 30 Days Qty: 120 11RF Rx Instructions: DX J44.9 COPD ferrous sulfate 325 mg (65 mg iron) tablet 325 mg PO BID ipratropium-albuterol 0.5 mg-3 mg(2.5 mg base)/3 mL solution for nebulization 3 ml inhalation Q6H montelukast 10 mg tablet 10 mg PO HS nystatin 100,000 unit/mL Suspension 500,000 unit PO TID PRN (Reason: White yeast in your mouth) Qty: 200 0RF guaifenesin [Mucinex] 600 mg Tablet Extended Release 12hr 600 mg PO BID PRN (Reason: cough) Qty: 20 0RF Mi-24 200 mg capsule,extended release 24hr 200 mg PO DAILY albuterol sulfate 90 mcg/actuation HFA aerosol inhaler 2 inh inhalation Q6HR PRN (Reason: shortness of breath or wheezing) cetirizine 10 mg tablet 10 mg PO DAILY (DME) Oxygen Unit See Rx Instructions .Route Rx Instructions: As directed JOSEFINA STEWART (DME) Bilevel Positive Airway Pressure (BiPAP) Unit See Rx Instructions .Route Rx Instructions: As directed STEWART DME not using at this time prednisone 5 mg tablet 5 mg PO DAILY Discontinued amoxicillin-pot clavulanate 875-125 mg tablet 1 tab PO BID Follow Up: Denver Rasmussen MD [Active Staff] - 02/23/24 2:30 pm Exam Physical Exam Vital Signs: Temp Pulse Resp BP Pulse Ox O2 Del Method O2 Flow Rate 97.9 F 111 H 22 141/82 H 98 Nasal Cannula 2 12/24/23 04:00 12/24/23 06:10 12/24/23 06:10 12/24/23 04:00 12/24/23 04:00 12/24/23 04:00 12/24/23 04:00 FiO2 28 12/20/23 21:00 Narrative: Significant improvement of her respiratory status over the last 24 hours. Patient is much Colmer. She is not using accessory muscles. She is less tachypneic. She is able to speak in full sentences. Chest exam revealed significant improvement of air entry and resolution of bilateral wheezing Diagnostic Studies Completed and Pending Studies Pending studies at discharge: 12/21/23 23:35 MRSA Culture Routine 12/22/23 21:29 Sputum Culture Routine Preliminary micro results at discharge 12/21/23 23:35 MRSA Culture - Preliminary Nose No MRSA Isolated 1 Day 12/22/23 21:29 Aerobic Culture - Pending Sputum - Expectorated Documented By: Cassandra Andersen MD 12/24/23 0833 Signed By: <Electronically signed by Cassandra Andersen MD> 12/24/23 0843 [facility] Work Phone: [phone]) 222-863209-12-2024 Telephone encounter Note* Telephone Encounter - Rodney Rinaldi - 12/24/2023 1:58 PM EDT Cinthia Guerrero --Omaira was dc'd from [facility]-She hasn't called in to reschedule her appt's. Tiff will you please call Omaira to reschedule PET, CT and follow up with LORENZO? Thanks I would not schedule CT chest until at least a week after she completes her antibiotics .....she should complete steroids by 01/06 so any time after 01/13 should be ok. Thanks! Girls, Patients PET was denied lindy is aware, so please just schedule CT and followup when rashid said, thanks Called left her a message to call back to schedule. [facility]09-11-2024 Progress note Author Denver Rasmussen [facility] December 23, 2023 6:59pm Note Date/Time December 23, 2023 8:19am [facility] [address] [place] [address] Pulmonology Progress Note Signed Patient: Cinthia Guerrero MR#: [id number] : 1960 Acct:[id number] Age/Sex: 63 / F Adm Date: 4 Loc: Room: [address] [place] [address] Type: ADM IN Attending Dr: Cassandra Andersen MD Copies to: ~ Date of Service: 12/23/2023 Subjective Subjective Narrative: Patient was able to expectorate some mucus after initiation of hypertonic saline. Culture results are pending with MRSA culture negative x 1 day. Patient continues to have dyspnea with exertion. Exam Physical Exam Vital Signs: Temp Pulse Resp BP Pulse Ox O2 Del Method O2 Flow Rate 97.8 F 106 H 22 134/83 94 L Nasal Cannula 2 12/23/23 04:00 12/23/23 05:39 12/23/23 05:39 12/23/23 04:00 12/23/23 04:00 12/23/23 04:00 12/23/23 04:00 FiO2 28 12/20/23 21:00 Const General: cooperative Nutritional Appearance: cachectic Orientation: alert and awake HEENT Head: normal to inspection Ears: hearing grossly normal bilaterally and external ears normal Nose: external nose normal Face and sinus: normal facial exam Eyes Eyelids: eyelids normal Neck Neck: normal visual inspection Chest Chest palpation & inspection: normal inspection of the chest Resp Effort & Inspection: retractions Auscultation: clear to auscultation bilaterally, diminished lung sounds, no rales, no rhonchi and no wheezes Cardio Rate: tachycardic Rhythm: regular rhythm Heart Sounds: S1 normal, S2 normal and no murmurs GI Inspection: normal to inspection Palpation: soft and nontender General: deferred Skin General: no rashes or lesions noted (Warm and dry) Extrem General: no pedal edema Objective Intake and Output I&O - Last 24 Hours: Intake & Output 12/22/23 12/23/23 12/23/23 23:59 07:59 15:59 Intake Total 1675 / 1675 Balance 1675 / 1675 Weight 86 lb 3.212 oz Labs 12/21/23 06:26 12/23/23 06:16 Microbiology Micro: Microbiology 3 12/22/23 21:29 Gram Stain - Final Sputum - Expectorated Assessment/Plan Assessment/Plan (1) Chronic hypercapnic respiratory failure: (2) COPD (chronic obstructive pulmonary disease): (3) Pulmonary cachexia due to COPD: (4) Sleep apnea, obstructive: Plan Hospital day #2 for patient with very severe emphysema with marked pulmonary cachexia and decreased level of function. Patient continues dyspneic on exertion and we will follow-up on culture results. Continue aggressive pulmonary clearance measures. Patient continues on Solu-Medrol 40 mg IV 1212 hrs., theophylline, and bronchodilators. Documented By: Denver Rasmussen MD 4 0819 Signed By: <Electronically signed by MD Denver Rasmussen> 12/23/23 9754 [facility] Work Phone: 1(881) 366-607709-11-2024 Progress note Author Cassandra Andersen [facility] December 23, 2023 11:01am Note Date/Time December 23, 2023 11:02am [facility] [address] [place] [address] Hospitalist Progress Note Signed Patient: Cinthia Guerrero MR#: [id number] : 1960 Acct:[id number] Age/Sex: 63 / F Adm Date: 4 Loc: Room: [address] [place] [address] Type: ADM IN Attending Dr: Cassandra Andersen MD Copies to: ~ Date of Service: 12/23/2023 Subjective Subjective Narrative: Patient started to improve this morning up until she went to the bathroom which is about 6 feet away and she became short of breath. It took her 45 minutes to settle down. Exam Physical Exam Vital Signs: Temp Pulse Resp BP Pulse Ox O2 Del Method O2 Flow Rate 97.5 F L 115 H 16 133/74 95 Nasal Cannula 2 12/23/23 08:00 12/23/23 10:51 12/23/23 10:51 12/23/23 10:51 12/23/23 10:51 12/23/23 10:51 12/23/23 10:51 FiO2 28 12/20/23 21:00 Narrative: Patient is sitting in bed leaning forward. Mildly tachypneic at rest. Unable to speak in full sentences. Using accessory muscles. Very cachectic and frail. Bitemporal muscle wasting. Upper and lower extremities muscle wasting and atrophy. Chest exam revealed diminished breath sound. Improvement of the bilateral expiratory wheezing, bilateral rhonchi. Heart is regular, tachycardia. Abdomen soft, scaphoid in appearance. Lower extremities no edema Objective Lab Results 12/21/23 06:26 12/23/23 06:16 Microbiology Results Microbiology 12/21/23 23:35 Nose MRSA Culture - Preliminary No MRSA Isolated 1 Day 12/22/23 21:29 Sputum - Expectorated Gram Stain - Final Meds Allergies and Active Meds Allergies No Known Allergies Allergy (Verified 12/20/23 19:46) Active Meds: Active Medications Generic Name Dose Route Start Last Admin Trade Name Freq PRN Reason Stop Dose Admin Albuterol/Ipratropium 3 ml 12/21/23 00:33 12/21/23 21:41 Ipratropium/Albuterol 0.5-3 Mg 3 Ml Ampul.Neb INHALATION 12/20/24 00:44 3 ml Q3H PRN Administration shortness of breath Albuterol/Ipratropium 3 ml 12/23/23 09:00 12/23/23 05:17 Ipratropium/Albuterol 0.5-3 Mg 3 Ml Ampul.Neb INHALATION 12/22/24 08:59 3 ml TID JYOTI Administration Alprazolam 0.25 mg 12/22/23 08:01 12/23/23 08:43 Alprazolam 0.25 Mg Tablet PO 06/19/24 08:00 0.25 mg Q6H PRN Administration Anxiety Amoxicillin/Clavulanate Potassium 1 tab 12/20/23 23:15 12/23/23 08:35 Amoxicillin/Clav 875-125 Mg Tablet PO 1 tab BID JYOTI Administration Budesonide 0.5 mg 12/21/23 09:00 12/23/23 05:16 Budesonide 0.5 Mg/2 Ml Ampul.Neb INHALATION 12/20/24 08:59 0.5 mg BID JYOTI Administration Enoxaparin Sodium 40 mg 12/21/23 10:00 12/23/23 09:22 Enoxaparin 40 Mg/0.4 Ml Syringe SUBCUT 12/20/24 09:59 Not Given DAILY@10 JYOTI Ferrous Sulfate 324 mg 12/21/23 09:45 12/23/23 08:35 Ferrous Sulfate 324 Mg Tablet. PO 12/20/24 09:44 324 mg BID JYOTI Administration Magnesium Sulfate 2 gm in 50 mls @ 25 mls/hr 12/20/23 22:58 Magnesium Sulf 2gm-*Swfi* IV 12/19/24 22:57 DAILY PRN Magnesium Level < 1.5 Sodium Chloride 1,000 mls @ 70 mls/hr 12/22/23 08:15 12/23/23 01:18 0.9% Sodium Chloride 1,000 Ml IV 12/23/23 15:16 70 mls/hr .[id number] JYOTI Administration Melatonin 5 mg 12/20/23 22:58 12/22/23 22:30 Melatonin 5 Mg Tablet PO 12/19/24 22:57 5 mg QHS PRN Administration Insomnia Methylprednisolone Sodium Succinate 40 mg 12/22/23 19:00 12/23/23 06:07 Methylprednisolone Sod Succ/Pf 40 Mg/Ml (1ml) Vial IV-PUSH 12/21/24 18:59 40 mg Q12H JYOTI Administration Montelukast Sodium 10 mg 12/21/23 22:00 12/22/23 21:22 Montelukast 10 Mg Tablet PO 12/20/24 21:59 10 mg HS JYOTI Administration Nystatin 500,000 unit 12/20/23 23:02 Nystatin Susp 500,000 Unit/5 Ml Udc PO 12/19/24 23:01 TID PRN White yeast in your mouth Potassium Chloride 20 meq 12/20/23 22:58 Potassium Chloride Er 20 Meq Tab.Er.Prt PO 12/19/24 22:57 DAILY PRN Hypokalemia Sodium Chloride 0 ml 12/20/23 19:45 12/21/23 22:32 Sodium Chloride 0.9 % 10 Ml Syringe IV-PUSH 12/19/24 19:44 10 ml PRN PRN Administration Flush Theophylline 200 mg 12/21/23 09:00 12/23/23 08:34 Theophylline Anhydrous 100 Mg Cap.Er.24h PO 12/20/24 08:59 200 mg DAILY JYOTI Administration A&P - Hospitalist Assessment/Plan (1) Chronic respiratory failure with hypoxia: (2) COPD (chronic obstructive pulmonary disease): (3) Pulmonary cachexia due to COPD: (4) Sleep apnea, obstructive: (5) Chronic hypercapnic respiratory failure: (6) Acute hypoxic respiratory failure: (7) Cachexia: (8) COPD exacerbation: Plan Acute on chronic hypoxic and hypercapnic respiratory failure Acute COPD exacerbation Acute rhinovirus infection Patient continues to be symptomatic. Patient continues to use accessory muscles Patient continues to be tachypneic at rest. Patient walk to the bathroom which is about 6 feet away and that took her breathaway. It took her about 45 minutes to settle down. Wheezing slightly improved compared to yesterday. Patient continues to require inpatient care for the next 24-48 Changed to inpatient Continue oxygen supplementation to Continue intravenous Solu-Medrol Continue albuterol and Atrovent Lovenox for DVT prophylaxis Defer further needed diagnostic and therapeutic intervention to pulmonary team. Oral protein supplementation As needed cough medicine. Increased risk of lung cancer I encouraged patient to have yearly low-dose radiation CAT scan of the chest to be arranged by PCP or wildlife control operator to screen for lung cancer. She had 1 in April 2023 which did not show any nodules. DVT prophylax Lovenox Anxiety Xanax as needed Sinus tachycardia which is likely caused by her COPD and also the use of beta agonist. Reduce the use of beta agonist to 3 times daily and as needed Other medical issues not listed above To be addressed in the outpatient setting Documented By: Cassandra Andersen MD 12/23/23 1100 Signed By: <Electronically signed by Cassandra Andersen MD> 12/23/23 1101 [facility] Work Phone: 1(796) 912-227609-10-2024 Progress note Author Denver Rasmussen [facility] December 22, 2023 7:37pm Note Date/Time December 22, 2023 8:11am [facility] [address] [place] [address] Pulmonology Progress Note Signed Patient: Cinthia Guerrero MR#: [id number] : 1960 Acct:[id number] Age/Sex: 63 / F Adm Date: 4 Loc: Room: [address] [place] [address] Type: ADM IN Attending Dr: Cassandra Andersen MD Copies to: ~ Date of Service: 12/22/2023 Subjective Subjective Narrative: Patient reports continued dyspnea with any exertion with some retained airway secretions which she cannot expectorate. Exam Physical Exam Vital Signs: Temp Pulse Resp BP Pulse Ox O2 Del Method O2 Flow Rate 97.5 F L 111 H 18 122/78 96 Nasal Cannula 2 12/22/23 04:00 12/22/23 06:17 12/22/23 06:17 12/22/23 04:00 12/22/23 04:00 12/22/23 04:00 12/22/23 04:00 FiO2 28 12/20/23 21:00 Const General: cooperative Nutritional Appearance: cachectic Orientation: alert and awake HEENT Head: normal to inspection Ears: hearing grossly normal bilaterally and external ears normal Nose: external nose normal Face and sinus: normal facial exam Eyes Eyelids: eyelids normal Neck Neck: normal visual inspection Chest Chest palpation & inspection: normal inspection of the chest Resp Effort & Inspection: retractions Auscultation: clear to auscultation bilaterally, diminished lung sounds, no rales, no rhonchi and no wheezes Cardio Rate: tachycardic Rhythm: regular rhythm Heart Sounds: S1 normal, S2 normal and no murmurs GI Inspection: normal to inspection Palpation: soft and nontender General: deferred Skin General: no rashes or lesions noted (Warm and dry) Extrem General: no pedal edema Objective Intake and Output I&O - Last 24 Hours: Intake & Output 12/21/23 12/22/23 12/22/23 23:59 07:59 15:59 Intake Total 650 / 900 Balance 650 / 900 Weight 85 lb 8.63 oz Labs 12/21/23 06:26 12/21/23 06:26 Microbiology Micro: Microbiology 3 12/21/23 05:50 Respiratory Panel (PCR) - Final Nasopharyngeal Assessment/Plan Assessment/Plan (1) Chronic hypercapnic respiratory failure: (2) COPD (chronic obstructive pulmonary disease): (3) Pulmonary cachexia due to COPD: (4) Sleep apnea, obstructive: Plan Hospital day #1 for patient with very severe emphysema with marked pulmonary cachexia and decreased level of function. Patient remains on oral Augmentin as well as IV Solu-Medrol every 12 hours in addition to nebulized bronchodilators. MRSA culture is pending. Will add hypertonic saline and will stop guaifenesin/dextromethorphan combination and start patient on guaifenesin alone to help facilitate clearance of secretions. We will try to obtain a sputum culture if able. We may need to consider broadening antibiotics if patient makes no significant progress. Documented By: Denver Rasmussen MD 4 0811 Signed By: <Electronically signed by MD Denver Rasmussen> 12/22/23 193 [facility] Work Phone: [phone]) 919-895309-10-2024 Progress note Author Cassandra Andersen [facility] December 22, 2023 8:05am Note Date/Time December 22, 2023 8:05am [facility] [address] [place] [address] Hospitalist Progress Note Signed Patient: Cinthia Guerrero MR#: [id number] : 1960 Acct:[id number] Age/Sex: 63 / F Adm Date: 4 Loc: Room: [address] [place] [address] Type: ADM IN Attending Dr: Cassandra Andersen MD Copies to: ~ Date of Service: 12/22/2023 Subjective Subjective Narrative: Patient continues to have respiratory distress and tachypnea. Persistent wheezing and cough. No fever or chills. No abdominal pain, nausea or vomiting Exam Physical Exam Vital Signs: Temp Pulse Resp BP Pulse Ox O2 Del Method O2 Flow Rate 97.5 F L 111 H 18 122/78 96 Nasal Cannula 2 12/22/23 04:00 12/22/23 06:17 12/22/23 06:17 12/22/23 04:00 12/22/23 04:00 12/22/23 04:00 12/22/23 04:00 FiO2 28 12/20/23 21:00 Narrative: Patient is sitting in bed leaning forward. Mildly tachypneic at rest. Unable to speak in full sentences. Using accessory muscles. Very cachectic and frail. Bitemporal muscle wasting. Upper and lower extremities muscle wasting and atrophy. Chest exam revealed diminished breath sound. Expiratory wheezing, bilateral rhonchi. Heart is regular, tachycardia. Abdomen soft, scaphoid in appearance. Lower extremities no edema Objective Lab Results 12/21/23 06:26 12/21/23 06:26 Microbiology Results Microbiology 12/21/23 05:50 Nasopharyngeal Respiratory Panel (PCR) - Final Meds Allergies and Active Meds Allergies No Known Allergies Allergy (Verified 12/20/23 19:46) Active Meds: Active Medications Generic Name Dose Route Start Last Admin Trade Name Freq PRN Reason Stop Dose Admin Albuterol/Ipratropium 3 ml 12/21/23 08:00 12/22/23 06:06 Ipratropium/Albuterol 0.5-3 Mg 3 Ml Ampul.Neb INHALATION 12/20/24 07:59 3 ml QID.RESP JYOTI Administration Albuterol/Ipratropium 3 ml 12/21/23 00:33 12/21/23 21:41 Ipratropium/Albuterol 0.5-3 Mg 3 Ml Ampul.Neb INHALATION 12/20/24 00:44 3 ml Q3H PRN Administration shortness of breath Amoxicillin/Clavulanate Potassium 1 tab 12/20/23 23:15 12/21/23 22:32 Amoxicillin/Clav 875-125 Mg Tablet PO 1 tab BID JYOTI Administration Budesonide 0.5 mg 12/21/23 09:00 12/22/23 06:06 Budesonide 0.5 Mg/2 Ml Ampul.Neb INHALATION 12/20/24 08:59 0.5 mg BID JYOTI Administration Enoxaparin Sodium 40 mg 12/21/23 10:00 12/21/23 11:38 Enoxaparin 40 Mg/0.4 Ml Syringe SUBCUT 12/20/24 09:59 40 mg DAILY@10 YJOTI Administration Ferrous Sulfate 324 mg 12/21/23 09:45 12/21/23 22:32 Ferrous Sulfate 324 Mg Tablet.Dr MAGANA 12/20/24 09:44 324 mg BID JYOTI Administration Guaifenesin/Dextromethorphan 1 tab 12/21/23 09:00 12/21/23 22:32 Guaif/Dextromethorphan 600-30mg Tab.Er.12h PO 12/20/24 08:59 1 tab Q12HR JYOTI Administration Magnesium Sulfate 2 gm in 50 mls @ 25 mls/hr 12/20/23 22:58 Magnesium Sulf 2gm-*Swfi* IV 12/19/24 22:57 DAILY PRN Magnesium Level < 1.5 Melatonin 5 mg 12/20/23 22:58 12/21/23 00:10 Melatonin 5 Mg Tablet PO 12/19/24 22:57 5 mg QHS PRN Administration Insomnia Methylprednisolone Sodium Succinate 40 mg 12/21/23 06:00 12/22/23 06:51 Methylprednisolone Sod Succ/Pf 40 Mg/Ml (1ml) Vial IV-PUSH 12/20/24 05:59 40 mg Q8HR JYOTI Administration Montelukast Sodium 10 mg 12/21/23 22:00 12/21/23 22:32 Montelukast 10 Mg Tablet PO 12/20/24 21:59 10 mg HS JYOTI Administration Nystatin 500,000 unit 12/20/23 23:02 Nystatin Susp 500,000 Unit/5 Ml Udc PO 12/19/24 23:01 TID PRN White yeast in your mouth Potassium Chloride 20 meq 12/20/23 22:58 Potassium Chloride Er 20 Meq Tab.Er.Prt PO 12/19/24 22:57 DAILY PRN Hypokalemia Sodium Chloride 0 ml 12/20/23 19:45 12/21/23 22:32 Sodium Chloride 0.9 % 10 Ml Syringe IV-PUSH 12/19/24 19:44 10 ml PRN PRN Administration Flush Theophylline 200 mg 12/21/23 09:00 12/21/23 09:01 Theophylline Anhydrous 100 Mg Cap.Er.24h PO 12/20/24 08:59 200 mg DAILY JYOTI Administration A&P - Hospitalist Assessment/Plan (1) Chronic respiratory failure with hypoxia: (2) COPD (chronic obstructive pulmonary disease): (3) Pulmonary cachexia due to COPD: (4) Sleep apnea, obstructive: (5) Chronic hypercapnic respiratory failure: (6) Acute hypoxic respiratory failure: (7) Cachexia: (8) COPD exacerbation: Plan Acute on chronic hypoxic and hypercapnic respiratory failure Acute COPD exacerbation Acute rhinovirus infection Patient continues to be symptomatic. Patient continues to use accessory muscles Patient continues to be tachypneic at rest. Patient continues to require inpatient care for the next 48 to 72 hours Changed to inpatient Continue oxygen supplementation to Continue intravenous Solu-Medrol Continue albuterol and Atrovent Lovenox for DVT prophylaxis Defer further needed diagnostic and therapeutic intervention to pulmonary team. Oral protein supplementation As needed cough medicine. Increased risk of lung cancer I encouraged patient to have yearly low-dose radiation CAT scan of the chest to be arranged by PCP or wildlife control operator to screen for lung cancer. She had 1 in April 2023 which did not show any nodules. DVT prophylax Lovenox Anxiety Xanax as needed Other medical issues not listed above To be addressed in the outpatient setting Documented By: Cassandra Andersen MD 12/22/23801 Signed By: <Electronically signed by Cassandra Andersen MD> 12/22/23804 [facility] Work Phone: 1(796) 531-821009-09-2024 Consult note Author Denver Rasmussen [facility] December 21, 2023 6:35pm Note Date/Time December 21, 2023 6:17pm [facility] [address] [place] [address] Pulmonology Consult Note Signed Patient: Cinthia Guerrero MR#: [id number] : 1960 Acct:[id number] Age/Sex: 63 / F Adm Date: 4 Loc: Room: [address] [place] [address] Type: ADM IN Attending Dr: Cassandra Andersen MD Copies to: MD Adithya Burr MD Rafik Massouh, MD~ HPI Date/Time of Consultation: Date of Service: 12/21/2023 Time of Service: 18:09 Consulting Provider: Denver Rasmussen Requesting Provider: Cassandra Andersen History of Present Illness History of present illness: Ms. Guerrero is a 63 year old female seen at the request of the hospitalist service for COPD exacerbation. Patient is known to our service after recent referral having been seen most recently at the end of November 2023. Patient had been seen in our practice in 2017 and follow-up with Dr. Driver and more recently had converted to Dr. Cross at the [facility]. Patient normally follows with Dr. Kenyon and had pulmonary function test done most recently on September 17, 2023 with evidence of very severe obstruction with an FEV1 to forced vital capacity ratio which was 33% with an FEV1 which was only 17% predicted with evidence of a bronchodilator response. Total lung capacity was 125% predicted with a residual volume which is 236% predicted which indicates severe air trapping and hyperinflation. The single breath diffusion capacity was decreasedat 21% of predicted and thus the patient has very severe obstructive ventilatorydefect most consistent with severe emphysema. Patient had been treated with Asmanex, DuoNeb, and theophylline and at last visit patient was referred for pulmonary rehabilitation with eventual consideration of chronic steroids to improve quality of life/level of function with understanding of known complications of chronic steroids versus chronic macrolide antibiotics should the patient have recurring purulent sputum and exacerbations. Patient developedsymptoms on December 13, 2023 with yucky colored sputum and increased dyspnea. Patient was seen at the [facility] and admitted for presumably acute exacerbation of COPD and was reportedly discharged on December 17, 2023 with decrease in sputum production and clearing of color. Patient has continued withmarked dyspnea and has noted some increase in sputum and possibly recurrence of purulent sputum which has now resolved after being initiated on antibiotics and bronchodilators in addition to steroids here. She denies significant fever, shaking shivering chills, or sweats. She notes that cough is less productive but continues to complain of marked decreased exercise tolerance with marked dyspnea on exertion such that patient cannot go to the bathroom and brush her teeth. She denies chest pain nor palpitations. She denies lower extremity edema. Review of Systems Review of Systems All other systems reviewed & are negative unless noted below or in HPI [facility] Medical History (Updated 12/21/23 @ 09:21 by Cassandra Andersen MD) Tachycardia Lung cancer Lung nodule Emphysema/COPD COPD (chronic obstructive pulmonary disease) Surgical History Hx of lymph node biopsy left shoulder CC on 11/18/23 Hx of section History of appendectomy Family History Brother Coronary artery disease Legacy FamHx Relation: Brother(s) Heart disease Legacy FamHx Relation: Brother(s) Father Coronary artery disease Heart disease Sister Coronary artery disease Heart disease Social History Smoking Status: Former smoker Tobacco Type: cigarettes Substance Use Type: None Meds Medications and Allergies Allergies No Known Allergies Allergy (Verified 12/20/23 19:46) Home Medications ipratropium 0.5 mg-albuterol 3 mg (2.5 mg base)/3 mL nebulization soln 3 ml inhalation Q6H 05/13/23 [History Confirmed 12/20/23] montelukast 10 mg tablet 10 mg PO HS 05/13/23 [History Confirmed 12/20/23] guaifenesin 600 mg tablet, extended release 12 hr (Mucinex) 600 mg PO BID PRN cough #20 tabs 05/17/23 [Rx Confirmed 12/20/23] nystatin 100,000 unit/mL oral suspension 500,000 unit (5 mL) PO TID PRN White yeast in your mouth #200 mL 05/17/23 [Rx Confirmed 12/20/23] Oxygen 09/29/23 [History Confirmed 12/20/23] albuterol sulfate 90 mcg/actuation aerosol inhaler 2 inh inhalation Q6HR PRN shortness of breath or wheezing 09/29/23 [History Confirmed 12/20/23] cetirizine 10 mg tablet 10 mg PO DAILY 09/29/23 [History Confirmed 12/20/23] theophylline 200 mg capsule,extended release 24 hr (Mi-24) 200 mg PO DAILY 09/29/23 [History Confirmed 12/20/23] budesonide 0.5 mg/2 mL suspension for nebulization 0.5 mg (2 mL) inhalation Q12H30 days #120 mL 11/11/23 [Rx Confirmed 12/20/23] Bilevel Positive Airway Pressure (BiPAP) 12/03/23 [History Confirmed 12/20/23] prednisone 5 mg tablet 5 mg PO DAILY 12/03/23 [History Confirmed 12/20/23] amoxicillin 875 mg-potassium clavulanate 125 mg tablet 1 tab PO BID 12/20/23 [History Confirmed 12/20/23] ferrous sulfate 325 mg (65 mg iron) tablet 325 mg PO BID 12/21/23 [History Confirmed 12/21/23] Exam Physical Exam Vital Signs: Temp Pulse Resp BP Pulse Ox O2 Del Method O2 Flow Rate 97.4 F L 120 H 22 134/80 94 L Nasal Cannula 2 12/21/23 15:36 12/21/23 15:36 12/21/23 15:36 12/21/23 15:36 12/21/23 15:36 12/21/23 16:00 12/21/23 16:00 FiO2 28 12/20/23 21:00 Const General: cooperative Nutritional Appearance: cachectic Orientation: alert and awake HEENT Head: normal to inspection Ears: hearing grossly normal bilaterally and external ears normal Nose: external nose normal Face and sinus: normal facial exam Eyes Eyelids: eyelids normal Neck Neck: normal visual inspection Chest Chest palpation & inspection: normal inspection of the chest Resp Effort & Inspection: retractions Auscultation: clear to auscultation bilaterally, diminished lung sounds, no rales, no rhonchi and no wheezes Cardio Rate: tachycardic Rhythm: regular rhythm Heart Sounds: S1 normal, S2 normal and no murmurs GI Inspection: normal to inspection Palpation: soft and nontender General: deferred Skin General: no rashes or lesions noted (Warm and dry) Extrem General: no pedal edema Results - Pulmonology Intake and Output I&O - Last 24 Hours: Intake & Output 12/21/23 12/21/23 12/21/23 07:59 15:59 23:59 Intake Total 250 / 250 Balance 250 / 250 Weight 85 lb 12.157 oz Labs 12/21/23 06:26 12/21/23 06:26 Microbiology Micro: 12/21/23 05:50 Respiratory Panel (PCR) - Final Nasopharyngeal Imaging and Cardiology Chest x-ray: Status: image reviewed by me Additional comments: Date of Service: 12/20/23 XR/XR chest 1V portable: Shortness of Breath/Dyspnea PORTABLE AP ERECT CHEST 2100 hours CLINICAL HISTORY: Exacerbation of COPD COMPARISON: 05/13/[address] 08/13/2023 The heart is within normal limits. There is no vascular congestion. The lungs lungs are hyperinflated. Residual pleural-parenchymal change is visualized at the left apex that may be scarring. No developing consolidation is seen. There is no effusion or pneumothorax. The bony structures are osteopenic. XR/XR chest 1V portable IMPRESSION: OBSTRUCTIVE LUNG DISEASE WITH CONTINUED PLEURAL PARENCHYMAL CHANGE AT THE LEFT APEX. NO OTHER ACUTE FINDINGS Additional Results Results Comments: VB.37/84.8/46.5 Assessment/Plan (1) Chronic hypercapnic respiratory failure: (2) COPD (chronic obstructive pulmonary disease): (3) Pulmonary cachexia due to COPD: (4) Sleep apnea, obstructive: Plan Hospital day #0 for patient with very severe emphysema with marked pulmonary cachexia and decreased level of function. Patient gives a recent history of acute exacerbation of COPD and is on steroids, antibiotics, and bronchodilators. In the short-term, we are simply trying to decrease inflammation and improve her level of function with note of marked tachycardia. Patient is already on optimal therapy and in the short-term may need to consider chronic low-dose steroids/chronic macrolide antibiotics. In the longer term, patient may need feliz referred to tertiary care center for possible endobronchial valve placement or even consideration of lung volume reduction surgery/lung transplant the patient no longer smoking and on optimal therapy. Ultimately, referral to tertiary care center would be done as an outpatient. I will place order for sputum for gram stain and culture and will also order MRSA culture. Documented By: Denver Rasmussen MD [id number] Signed By: <Electronically signed by MD Denver Rasmussen> 12/21/23 1835 [facility] Work Phone: [phone]) 896-594909-09-2024 Progress note Author Cassandra Andersen [facility] December 21, 2023 9:22am Note Date/Time December 21, 2023 9:22am [facility] [address] [place] [address] Hospitalist Progress Note Signed Patient: Cinthia Guerrero MR#: [id number] : 1960 Acct:[id number] Age/Sex: 63 / F Adm Date: 4 Loc: 3T Room: [address] [place] [address] Type: ADM INOo Attending Dr: Cassandra Andersen MD Copies to: ~ Date of Service: 12/21/2023 Subjective Subjective Narrative: This is 61-year-old female with chronic respiratory failure secondary to COPD, on supplemental oxygen at home, pulmonary cachexia, [facility]. At that time COVID test was done which was negative. She was there for 3 days and was discharged this on prednisone and Augmentin. She presented to our emergency department with worsening shortness of breath and according to the patient she is coughing up thick greenish phlegm. In the emergency department she was noted to be tachycardic with a heart rate as high as 120s she was also tachypneic. All other vitals were unremarkable. She was saturating 94% on 2 L of supplemental oxygen. She received DuoNebs and magnesium. A VBG was done and showed hypercapnic respiratory failure with a pCO2 of 84 so she was placed on BiPAP. Chest x-ray did not show any infiltrate. She is currently on 2 L of supplemental oxygen and does not appear to be in any respiratory distress. She denies any fever, chills, nausea or vomiting. 12/20: Patient continues to be symptomatic. Dyspneic at rest. Unable to speak in sentences. No fever or chills. No abdominal pain. Moist cough. No production. Exam Physical Exam Vital Signs: Temp Pulse Resp BP Pulse Ox O2 Del Method O2 Flow Rate 97.4 F L 115 H 18 147/84 H 95 Nasal Cannula 2 12/21/23 07:48 12/21/23 09:12 12/21/23 09:12 12/21/23 07:48 12/21/23 09:12 12/21/23 09:12 12/21/23 09:12 FiO2 28 12/20/23 21:00 Narrative: Patient is sitting in bed leaning forward. Mildly tachypneic at rest. Unable to speak in full sentences. Using accessory muscles. Very cachectic and frail. Bitemporal muscle wasting. Upper and lower extremities muscle Massouh and atrophy. Chest exam revealed diminished breath sound. Expiratory wheezing. Heart is regular, tachycardia. Abdomen soft, scaphoid in appearance. Lower extremities no edema Objective Lab Results 12/21/23 06:26 12/21/23 06:26 Microbiology Results Microbiology 12/21/23 05:50 Nasopharyngeal Respiratory Panel (PCR) - Final Meds Allergies and Active Meds Allergies No Known Allergies Allergy (Verified 12/20/23 19:46) Active Meds: Active Medications Generic Name Dose Route Start Last Admin Trade Name Freq PRN Reason Stop Dose Admin Albuterol/Ipratropium 3 ml 12/21/23 08:00 12/21/23 09:12 Ipratropium/Albuterol 0.5-3 Mg 3 Ml Ampul.Neb INHALATION 12/20/24 07:59 3 ml QID.RESP JYOTI Administration Albuterol/Ipratropium 3 ml 12/21/23 00:33 12/21/23 00:38 Ipratropium/Albuterol 0.5-3 Mg 3 Ml Ampul.Neb INHALATION 12/20/24 00:44 3 ml Q3H PRN Administration shortness of breath Amoxicillin/Clavulanate Potassium 1 tab 12/20/23 23:15 12/21/23 08:34 Amoxicillin/Clav 875-125 Mg Tablet PO 1 tab BID JYOTI Administration Budesonide 0.5 mg 12/21/23 09:00 12/21/23 06:01 Budesonide 0.5 Mg/2 Ml Ampul.Neb INHALATION 12/20/24 08:59 0.5 mg BID JYOTI Administration Enoxaparin Sodium 40 mg 12/21/23 10:00 Enoxaparin 40 Mg/0.4 Ml Syringe SUBCUT 12/20/24 09:59 DAILY@10 JYOTI Guaifenesin/Dextromethorphan 1 tab 12/21/23 09:00 12/21/23 08:34 Guaif/Dextromethorphan 600-30mg Tab.Er.12h PO 12/20/24 08:59 1 tab Q12HR JYOTI Administration Magnesium Sulfate 2 gm in 50 mls @ 25 mls/hr 12/20/23 22:58 Magnesium Sulf 2gm-*Swfi* IV 12/19/24 22:57 DAILY PRN Magnesium Level < 1.5 Melatonin 5 mg 12/20/23 22:58 12/21/23 00:10 Melatonin 5 Mg Tablet PO 12/19/24 22:57 5 mg QHS PRN Administration Insomnia Methylprednisolone Sodium Succinate 40 mg 12/21/23 06:00 12/21/23 05:48 Methylprednisolone Sod Succ/Pf 40 Mg/Ml (1ml) Vial IV-PUSH 12/20/24 05:59 40 mg Q8HR JYOTI Administration Montelukast Sodium 10 mg 12/21/23 22:00 Montelukast 10 Mg Tablet PO 12/20/24 21:59 HS JYOTI Nystatin 500,000 unit 12/20/23 23:02 Nystatin Susp 500,000 Unit/5 Ml Udc PO 12/19/24 23:01 TID PRN White yeast in your mouth Potassium Chloride 20 meq 12/20/23 22:58 Potassium Chloride Er 20 Meq Tab.Er.Prt PO 12/19/24 22:57 DAILY PRN Hypokalemia Sodium Chloride 0 ml 12/20/23 19:45 Sodium Chloride 0.9 % 10 Ml Syringe IV-PUSH 12/19/24 19:44 PRN PRN Flush Theophylline 200 mg 12/21/23 09:00 12/21/23 09:01 Theophylline Anhydrous 100 Mg Cap.Er.24h PO 12/20/24 08:59 200 mg DAILY JYOTI Administration A&P - Hospitalist Assessment/Plan (1) Chronic respiratory failure with hypoxia: (2) COPD (chronic obstructive pulmonary disease): (3) Pulmonary cachexia due to COPD: (4) Sleep apnea, obstructive: (5) Chronic hypercapnic respiratory failure: (6) Acute hypoxic respiratory failure: (7) Cachexia: (8) COPD exacerbation: Plan Patient continues to be symptomatic. Patient is using accessory muscles Patient is tachypneic at rest. Patient continues to require inpatient care for the next 48 to 72 hours Changed to inpatient Continue oxygen supplementation to Continue intravenous Solu-Medrol Continue albuterol and Atrovent Lovenox for DVT prophylaxis Oral protein supplementation As needed cough medicine. Increased risk of lung cancer I encouraged patient to have yearly low-dose radiation CAT scan of the chest to be arranged by PCP or wildlife control operator to screen for lung cancer. She had 1 in April 2023 which did not show any nodules. Documented By: Cassandra Andersen MD 12/21/23918 Signed By: <Electronically signed by Cassandra Andersen MD> 12/21/23921 [facility] Work Phone: [phone]) [phone] History and physical note Author Mg Vaughn [facility] December 20, 2023 10:58pm Note Date/Time December 20, 2023 10:58pm [facility] [address] [place] [address] Hospitalist H&P Signed Patient: Cinthia Guerrero MR#: [id number] : 1960 Acct:[id number] Age/Sex: 63 / F Adm Date: 4 Loc: 3T Room: [address] [place] [address] Type: ADM INOo Attending Dr: Mg Vaughn MD Copies to: MD Adithya Koroma MD~ HPI DATE OF EXAMINATION: 12/20/23 CHIEF COMPLAINT: COPD exacerbation HISTORY OF PRESENT ILLNESS: This is 61-year-old female with chronic respiratory failure secondary to COPD, on supplemental oxygen at home, pulmonary cachexia, [facility]. At that time COVID test was done which was negative. She was there for 3 days and was discharged this on prednisone and Augmentin. She presented to our emergency department with worsening shortness of breath and according to the patient she is coughing up thick greenish phlegm. In the emergency department she was noted to be tachycardic with a heart rate as high as 120s she was also tachypneic. All other vitals were unremarkable. She was saturating 94% on 2 L of supplemental oxygen. She received DuoNebs and magnesium. A VBG was done and showed hypercapnic respiratory failure with a pCO2 of 84 so she was placed on BiPAP. Chest x-ray did not show any infiltrate. She is currently on 2 L of supplemental oxygen and does not appear to be in any respiratory distress. She denies any fever, chills, nausea or vomiting. Review of Systems Review of Systems All other systems reviewed & are negative unless noted below or in HPI [facility] Medical History (Updated 12/20/23 @ 21:57 by Rip Celestin DO) Tachycardia Lung cancer Lung nodule Emphysema/COPD COPD (chronic obstructive pulmonary disease) Surgical History Hx of lymph node biopsy left shoulder CC on 11/18/23 Hx of section History of appendectomy Family History Brother Coronary artery disease Legacy FamHx Relation: Brother(s) Heart disease Legacy FamHx Relation: Brother(s) Father Coronary artery disease Heart disease Sister Coronary artery disease Heart disease Social History Smoking Status: Former smoker Tobacco Type: cigarettes Substance Use Type: None Meds Medications and Allergies Allergies No Known Allergies Allergy (Verified 12/20/23 19:46) Home Medications ipratropium 0.5 mg-albuterol 3 mg (2.5 mg base)/3 mL nebulization soln 3 ml inhalation Q6H 05/13/23 [History Confirmed 12/20/23] montelukast 10 mg tablet 10 mg PO HS 05/13/23 [History Confirmed 12/20/23] guaifenesin 600 mg tablet, extended release 12 hr (Mucinex) 600 mg PO BID PRN cough #20 tabs 05/17/23 [Rx Confirmed 12/20/23] nystatin 100,000 unit/mL oral suspension 500,000 unit (5 mL) PO TID PRN White yeast in your mouth #200 mL 05/17/23 [Rx Confirmed 12/20/23] Oxygen 09/29/23 [History Confirmed 12/20/23] albuterol sulfate 90 mcg/actuation aerosol inhaler 2 inh inhalation Q6HR PRN shortness of breath or wheezing 09/29/23 [History Confirmed 12/20/23] cetirizine 10 mg tablet 10 mg PO DAILY 09/29/23 [History Confirmed 12/20/23] theophylline 200 mg capsule,extended release 24 hr (Mi-24) 200 mg PO DAILY 09/29/23 [History Confirmed 12/20/23] budesonide 0.5 mg/2 mL suspension for nebulization 0.5 mg (2 mL) inhalation Q12H30 days #120 mL 11/11/23 [Rx Confirmed 12/20/23] Bilevel Positive Airway Pressure (BiPAP) 12/03/23 [History Confirmed 12/20/23] prednisone 5 mg tablet 5 mg PO DAILY 12/03/23 [History Confirmed 12/20/23] amoxicillin 875 mg-potassium clavulanate 125 mg tablet 1 tab PO BID 12/20/23 [History Confirmed 12/20/23] Exam Physical Exam Vital Signs: Temp Pulse Resp BP Pulse Ox O2 Del Method O2 Flow Rate 97.3 F L 107 H 18 126/78 94 L Nasal Cannula 2 12/20/23 19:49 12/20/23 22:30 12/20/23 22:30 12/20/23 22:30 12/20/23 22:30 12/20/23 22:30 12/20/23 22:30 FiO2 28 12/20/23 21:00 Narrative: General: Sitting up in the bed in no acute distress. HEENT: Normocephalic/atraumatic. Pupils are equal and reactive to light and accommodation. Cardiovascular: Tachycardic. Regular rate and rhythm. Respiratory: Mild expiratory wheezing. No rales or rhonchi appreciated. GI: Soft, no organomegaly appreciated. Extremity: No edema. Neuro: Awake, alert, and oriented x 3. Results - Hospitalist H&P Lab Results Labs: Laboratory Last Values Corrected WBC 8.4 X10E3/uL (3.8-11.6) 12/20/23 20:08 Uncorrected WBC Count 8.4 x10E3/uL (3.8-11.6) 12/20/23 20:08 RBC 5.37 X10E6/uL (3.60-5.00) H 12/20/23 20:08 Hgb 14.5 g/dL (11.8-15.4) 12/20/23 20:08 Hct 44.5 % (34.0-46.4) 12/20/23 20:08 MCV 82.9 fl (80-100) 12/20/23 20:08 MCH 27.0 pg (24.7-34.3) 12/20/23 20:08 MCHC 32.6 g/dL (32.0-35.0) 12/20/23 20:08 RDW 14.1 % (11.9-15.3) 12/20/23 20:08 Plt Count 346 x10E3/uL (150-450) 12/20/23 20:08 MPV 7.0 fl (6.3-10.7) 12/20/23 20:08 Neut % (Auto) 83.9 % (.) 12/20/23 20:08 Lymph % (Auto) 9.8 % (.) 12/20/23 20:08 Washburn % (Auto) 5.9 % (.) 12/20/23 20:08 Eos % (Auto) 0.1 % (.) 12/20/23 20:08 Baso % (Auto) 0.3 % (.) 12/20/23 20:08 Nucleat RBC Rel Count 0.1 /100 WBC (0-0.5) 12/20/23 20:08 Neut # (Auto) 7.0 x10E3/uL (1.8-7.7) 12/20/23 20:08 Lymph # (Auto) 0.8 x10E3/uL (1.00-4.8) L 12/20/23 20:08 [place] # (Auto) 0.5 x10E3/uL (0.0-0.8) 12/20/23 20:08 Eos # (Auto) 0.0 x10E3/uL (0.0-0.45) 12/20/23 20:08 Baso # (Auto) 0.0 x10E3/uL (0.0-0.2) 12/20/23 20:08 Monocyte Dist Width 16.32 % (0.00-20.00) 12/20/23 20:08 Sample Site Venous 12/20/23 20:21 VBG pH 7.37 (7.32-7.43) 12/20/23 20:21 VBG pCO2 84.8 mmHg (38.0-50.0) H* 12/20/23 20:21 VBG pO2 46.5 mmHg (35.0-45.0) H 12/20/23 20:21 VBG HCO3 47.6 mmol/L (23.0-29.0) H 12/20/23 20:21 VBG Total CO2 50.2 mmol/L (24.0-29.0) H 12/20/23 20:21 VBG O2 Saturation 83.6 % (73.0-76.0) H 12/20/23 20:21 VBG O2 Content 8.2 mmol/L (6.6-9.7) 12/20/23 20:21 VBG Base Excess 16.9 mmol/L (-3.0-3.0) H 12/20/23 20:21 O2 Delivery Device Nasal cannula 12/20/23 20:21 FiO2 28 % 12/20/23 20:21 Critical Value 12/20/23 20:21 PHA Creatinine Clear 94.74 12/20/23 20:08 Sodium 136 mmol/L (136-145) 12/20/23 20:08 Potassium 4.4 mmol/L (3.5-5.1) 12/20/23 20:08 Chloride 86 mmol/L (98-107) L 12/20/23 20:08 Carbon Dioxide > 45.0 mmol/L (21.0-31.0) H 12/20/23 20:08 Anion Gap TNP 12/20/23 20:08 BUN 11 mg/dL (7-25) 12/20/23 20:08 Creatinine 0.41 mg/dL (0.60-1.20) L 12/20/23 20:08 Est GFR (CKD-EPI) > 60.0 mL/Min 12/20/23 20:08 Glucose 103 mg/dL (70-100) H 12/20/23 20:08 Calcium 9.8 mg/dL (8.6-10.3) 12/20/23 20:08 Total Bilirubin 0.3 mg/dl (0.3-1.0) 12/20/23 20:08 AST 20 U/L (13-39) 12/20/23 20:08 ALT 28 U/L (7-52) 12/20/23 20:08 Alkaline Phosphatase 77 U/L (34-104) 12/20/23 20:08 Total Creatine Kinase 24 U/L (30-223) L 12/20/23 20:08 Troponin I High Sens 4.3 pg/mL (0.0-15.0) 12/20/23 20:08 B-Natriuretic Peptide 44.0 pg/mL (5-100) 12/20/23 20:08 Total Protein 7.6 gm/dL (6.4-8.9) 12/20/23 20:08 Albumin 4.2 gm/dL (3.5-5.7) 12/20/23 20:08 Globulin 3.4 gm/dL 12/20/23 20:08 Albumin/Globulin Ratio 1.2 12/20/23 20:08 Theophylline 3.6 ug/mL (10.0-20.0) L 12/20/23 20:08 ABG Interpretation ABG results: 12/20/23 20:21 VBG pH 7.37 VBG pCO2 84.8 H* VBG pO2 46.5 H VBG HCO3 47.6 H VBG Total CO2 50.2 H VBG O2 Saturation 83.6 H VBG Base Excess 16.9 H Assessment & Plan Assessment/Plan (1) Chronic respiratory failure with hypoxia: (2) COPD (chronic obstructive pulmonary disease): (3) Pulmonary cachexia due to COPD: (4) Sleep apnea, obstructive: Plan -Admit for observation. -Start Solu-Medrol 40 mg every 8 hours. Continue Augmentin. -Will consult pulmonology. Dr. Gannon is her wildlife control operator. -Budesonide via nebulization every 12 hours, and DuoNebs [id number]. -O2 supplementation to maintain O2 sats greater than 90%. She can use BiPAP intermittently or when asleep -Repeat ABG in the morning -GI/DVT prophylaxis -She is full code IP vs OBS Justification Based on differential dx, clinical care plan, and risk of adverse events, if untreated, in my clinical judgement this patient requires an acute care setting as: OBSERVATION because of an expectation of an under 2 midnight stay. Estimated length of stay (# of days): 2 Documented By: Mg Vaughn MD 12/04 Signed By: <Electronically signed by Mg Vaughn MD> 12/20/232257 [facility] Work Phone: [phone] NoteHNO ID: [id number] Author: TEO CRAFT MD Service: ? Author Type: Physician Type: Progress Notes Filed: 12/07/2023 00:32 Note Text: Wayne HNS Consult This consult was requested by [...] No date: BRONCHOSCOPY Comment: 2022 1984: SNGL 2012: COLONOSCOPY Current Outpatient Medications Medication Sig Dispense [...] mobility normal Neck Ultrasound: 12/07/2023 Ultrasound Machine: Keen IO Transducer: Linear 11 MHz Regions examined: cervical lymph nodes Sagittal and transverse views were obtained. Color and power Doppler were applied when indicated. Left neck: For surgical planning I evaluated the left cervical lymph nodes with the ultrasound. Identified 2 separate lymph nodes we (more content not included)...[facility]08-26-2024 History of Present illness Narrative* Teo Craft MD - 12/07/2023 12:20 AM EDT Wayne HNS Consult This consult was requested by Abdi Israel MD for an opinion regarding left neck lymphadenopathy. .My final recommendations will be communicated to the requesting provider by way of shared EMR or letter via the US mail. HPI: CINTHIA Guerrero is an 63 year old female who presented to the clinic with history of NSCLC andPET avid lymph nodes in the left neck [...] date: Supplemental oxygen dependent PAST SURGICAL HISTORY 1973: APPENDECTOMY No date: BRONCHOSCOPY Comment: 2022 1984: SNGL 2011: COLONOSCOPY Current Outpatient Medications Medication Sig Dispense Refill predniSONE 10 mg tablet pack 5 tabs per day for 3 days, 4 tabs per day for 3 ays, 3 tabs perday for3 days, 2 tabs per day for 3 [...] Once exam is complete flush line and de-accessaccording to line specific nursing protocol in the [...] mobility normal Neck Ultrasound: 12/07/2023 Ultrasound Machine: Keen IO Transducer: Linear 11 MHz Regions examined: cervical [...] the neck they do seem to be surgicallyaccessible. Procedure performed by Oz Villegas ASSESSMENT: 63 [...] Moderate Teo Craft MD documented in this encounterSt. [facility] Telephone encounter Note * Telephone Encounter - Rodney Rinaldi - 11/30/2023 8:22 AM EDT Yes she has caresource unfornatuly. [facility]08[facility] Miscellaneous Notes* Telephone Encounter - Rodney Rinaldi - 11/30/2023 8:22 AM EDT Yes she has caresource unfornatuly. * Telephone Encounter - Rodney Rinaldi - 11/30/2023 8:10 AM EDT Patient is called and scheduled for all appointments * Telephone Encounter - Abdi Israel MD - 11/27/2023 4:20 PM EDT Signed and added a CT chest as well. Thanks! Abdi * Telephone Encounter - Anita Pressley LPN - 11/27/2023 2:55 PM EDT Rodnye: Please schedule Omaira for a PET scan then follow up with Dr. Israel. Dr. Israel: Please sign pended PET order as we discussed today. Anita Pressley RN * Telephone Encounter - Abdi Israel MD - 11/16/2023 5:41 PM EDT Spoke with Ms. Guerrero ... Will plan for a CT chest after she is recovered from her procedure and path is final. Thanks! Abdi * Telephone Encounter - Silvia Jha RN - 11/16/2023 9:50 AM EDT Pt called in requesting to speak to [...] her again. She would appreciate a call [facility]. Thank you documented in this encounterSt. [facility]08-[facility] Telephone encounter Note * Telephone Encounter - Rodney Rinaldi - 11/30/2023 8:10 AM EDT Patient is called and scheduled for all appointments [facility]08-16-2024 Telephone encounter Note* Telephone Encounter - Abdi Israel MD - 11/27/2023 4:20 PM EDT Signed and added a CT chest as well. Thanks! Abdi [facility]08-16-[facility]24 Telephone encounter Note* Telephone Encounter - Anita Pressley LPN - 11/27/2023 2:55 PM EDT Rodney: Please schedule Omaira for a PET scan then follow up with Dr. Israel. Dr. Israel: Please sign pended PET order as we discussed today. Anita Pressley RN [facility]08-08-2024 Telephone encounter Note* Telephone Encounter - Ananya Acuna - 11/19/2023 1:49 PM EDT Person Calling:Omaira Reason for Call: requesting a work excuse for her daughter Kendal Ruiz [facility] 11/17 & 11/18. Pt Phone #: [phone] Pharmacy Name and # : Pt last seen: Visit date not found Ananya Emily HEARD [facility]08-08-2024 Miscellaneous Notes* Telephone Encounter - Ananya Acuna - 11/19/2023 1:49 PM EDT Person Calling:Omaira Reason for Call: requesting a work excuse for her daughter Kendal Ruiz [facility] 11/17 & 11/18. Pt Phone #: [phone] Pharmacy Name and # : Pt last seen: Visit date not found Ananya Emily HEARD documented in this encounterSt. Mary'[facility]08-07-2024 NoteHNO ID: [id number] Author: DORON FLORENTINO MD Service: ? Author [...] used: Soto Endotracheal tube insertion site: oral Blade size: [...] November 18, 2023 TIME: 3:55 PM CSN: [id number]08-06-20[facility] Instructions* Patient Instructions* Brie Kaur PA-C - 11/17/2023 3:21 PM EDT PATIENT PREOPERATIVE INSTRUCTIONS Teo Craft MD has scheduled you for your procedure at this surgery center: [facility] Scheduling Office: [phone] --[address] [place] [address]. Please read below carefully for your personalized instructions. Arrival Time for Surgery: - To obtain your arrival time for surgery, call your physician's office the day before your surgery. - If your surgery is scheduled for Thursday, call the Thursday before. Your surgeon s chief librarian music department will tell you what time to call the office. - If you have not reached the departmental chief librarian music department by 5 P.M., call [phone] after 5 P.M. the day before your [...] Procedures: - YOU MUST HAVE A RESPONSIBLE ANALYTICAL TECH TAKE YOU HOME. A ROTARY SLICING MACHINE OPERATOR OR SUPERVISOR FUR FLOOR WORKER CANNOT BE MADE A RESPONSIBLE ANALYTICAL TECH. - We recommend that a responsible person stays with you overnight to take care of you. - You cannot stay in a hotel alone after outpatient surgery. You will not be permitted to have yoursurgery, if you do not have someone to take care of you. Please be aware that emergency situations arise, which may delay or change your surgical time. If this happens, we will notify you as soon as possible and regret any inconvenience. If you already have an Advance Directive, please fax a copy to [phone] or email to for it to be added to your chart. If you do not have an Advance Directive, you can find the appropriate form and more information at [email or web address]. We recommend that youcomplete the Advance Directive form found on the website and bring it with you the day of your surgery. It can be witnessed and scanned into your chart that day. documented in this encounterSt. Mary'[facility]08-06-2024 History and physical note * Brie Kaur PA-C - 11/17/2023 2:40 PM EDT Images from the original note were not [...] via NC. Follows with outside pulm at [facility], Dr. Valery DAVIS in October per pt. Diminished breath sounds bilaterally throughout, no wheezing. SpO2 95% on 2L O2. 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 Ptreports she called wildlife control operator's office because she felt like her breathing [...] large neck Non-male patient STOP-Bang Score: 1 [id number] Score: Age: <65 Sex: female CHF history: No Hypertension history: No Stroke/TIA/thromboembolism history: No Vascular disease history: No Diabetes history: No [id number] Score: 1 ANESTHESIA FINDINGS: Intubation History: No [...] Thick neck: no Lip Bite Test: I Microretrognathia/Micronagthia/Recessed Chin: No DENTAL Dental findings: teeth intact. II - ANESTHESIA PLAN Anesthetic Plan: other Anesthetic plan additional comments: *PACC/TCI - anesthesia choice. Beta Brittany Monitoring Plan Post Procedure Analgesic Plan Prepared for Surgery: optimally prepared for surgery, pending [see comment]. DOS REVIEW OF LABS andECG. Patient was seen for PACC the day before scheduled procedure. CONSULTS: Patient does not require consults for optimization at this time Planned Anesthetic: other anesthesia choice The Following Tests/Procedures Have Been Initiated: Orders placed by surgeon/surgical service in [facility]. Orders Placed This Encounter Complete Blood [...] (Left) at the request of Dr. Teo Craftfor consultation. My final recommendation will be communicated [...] PET. Above procedure recommended to manage symptoms. Pr ocedure scheduled on 11/18/23 (per pt, surgery currently 12/16/23 in [facility]) at . REVIEW OF SYSTEMS: General: [...] requiring medication, no history of angina, CHF, ND, cardiac surgery or stents. Denies rest pain, [...] date: Supplemental oxygen dependent PAST SURGICAL HISTORY 1973: APPENDECTOMY No date: BRONCHOSCOPY Comment: 2022 1984: [...] day for 3 ays, 3 tabs perday for3 days, 2 tabs per day for 3 [...] Once exam is complete flush line and de-accessaccording to line specific nursing protocol in the [...] negatives noted - no murmur. No radial pulseabnormalities. Respiratory: Pertinent negatives noted - no wheezing. [...] or any previous visit (from the past 60857 hour(s)). Instructions Given to Patient: Instructions located in the after visit summary. Patient given verbal and written preop instructions and voices comprehension and compliance. SIGNATURE: Brie Kaur PA-C PATIENT NAME: CINTHIA Guerrero DATE: 11/17/2023 TIME: 3:00 PM PAGER/CONTACT #: [facility] History and physical note* Brie Kaur PA-C - 11/17/2023 2:40 PM EDT Images from the original note were not [...] via NC. [facility] October per pt. Diminished breath sounds bilaterally throughout, no wheezing. SpO2 95% on 2L O2. 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 Ptreports she called wildlife control operator's office because she felt like her breathing [...] large neck Non-male patient STOP-Bang Score: 1 [id number] Score: Age: <65 Sex: female CHF history: No Hypertension history: No Stroke/TIA/thromboembolism history: No Vascular disease history: No Diabetes history: No [id number] Score: 1 ANESTHESIA FINDINGS: Intubation History: No [...] Thick neck: no Lip Bite Test: I Microretrognathia/Micronagthia/Recessed Chin: No DENTAL Dental findings: teeth intact. II - ANESTHESIA PLAN Anesthetic Plan: other Anesthetic plan additional comments: *PACC/TCI - anesthesia choice. Beta Brittany Monitoring Plan Post Procedure Analgesic Plan Prepared for Surgery: optimally prepared for surgery, pending [see comment]. DOS REVIEW OF LABS andECG. Patient was seen for PACC the day before scheduled procedure. CONSULTS: Patient does not require consults for optimization at this time Planned Anesthetic: other anesthesia choice The Following Tests/Procedures Have Been Initiated: Orders placed by surgeon/surgical service in [facility]. Orders Placed This Encounter Complete Blood [...] (Left) at the request of Dr. Teo Craftfor consultation. My final recommendation will be communicated [...] PET. Above procedure recommended to manage symptoms. Pr ocedure scheduled on 11/18/23 (per pt, surgery currently 12/16/23 in [facility]) at . REVIEW OF SYSTEMS: General: No weight loss, malaise or fevers. Neurological: Positive for: seizures (1980s - during 2/2 hypoglycemia). Negative for: multiple sclerosis, Parkinson's disease, TIA and strokes. Respiratory: +SELENE lung cancer - 2018, treated with SBRT Positive for: COPD (on [...] requiring medication, no history of angina, CHF, ND, cardiac surgery or stents. Denies rest pain, [...] day for 3 ays, 3 tabs perday for3 days, 2 tabs per day for 3 [...] Once exam is complete flush line and de-accessaccording to line specific nursing protocol in the [...] negatives noted - no murmur. No radial pulseabnormalities. Respiratory: Pertinent negatives noted - no wheezing. [...] or any previous visit (from the past 21373 hour(s)). Instructions Given to Patient: Instructions located in the after visit summary. Patient given verbal and written preop instructions and voices comprehension and compliance. SIGNATURE: Brie Kaur PA-C PATIENT NAME: CINTHIA Guerrero DATE: 11/17/2023 TIME: 3:00 PM PAGER/CONTACT #: documented in this encounterSt. Mary'[facility]08-05-2024 Telephone encounter Note * Telephone Encounter - Abdi Israel MD - 11/16/2023 5:41 PM EDT Spoke with Ms. Guerrero ... Will plan for a CT chest after she is recovered from her procedure and path is final. Thanks! Abdi [facility]08-05-2024 Telephone encounter Note* Telephone Encounter - Silvia Jha RN - 11/16/2023 9:50 AM EDT Pt called in requesting to speak to [...] would appreciate a call ALEKS. Thank you [facility]07-16-[facility] Nurse Note* Rodney Barry MA - 10/27/2023 11:27 AM EDT Tobacco Use: 1.5 packs/day, for 35 years. Quit 04/13/2012. Types: Cigarettes Was smoking cessation packet given? N/A - Patient is a non-smoker or quit >1 year ago. Was a referral initiated?N/A Patient is a non-smoker [facility]07-16-[facility]24 Nurse Note* Rodney Barry MA - 10/27/2023 11:27 AM EDT Tobacco Use: 1.5 packs/day, for 35 years. Quit 04/13/2012. Types: Cigarettes Was smoking cessation packet given? N/A - Patient is a non-smoker or quit >1 year ago. Was a referral initiated?N/A Patient is a non-smoker documented in this encounterSt. Mary'S Medical Center06-18-2024 Telephone encounter Note * Telephone Encounter - Rodney Rinaldi - 09/29/2023 8:10 AM EDT Patient is scheduled and they have been calling her with appointment. [facility] Miscellaneous Notes* Telephone Encounter - Rodney Rinaldi - 09/29/2023 8:10 AM EDT Patient is scheduled and they have been calling her with appointment. * Telephone Encounter - Rodney Rinaldi - 09/25/2023 7:21 AM EDT Email sent to cancer answer line for scheduling thanks * Telephone Encounter - Silvia Jha RN - 09/24/2023 3:32 PM EDT Tiff- Dr Israel signed ENT order for Dr Craft. Please schedule and let him know when this consult can be done. Thank you! Silvia Jha RN * Telephone Encounter - Silvia Jha RN - 09/23/2023 8:[address] Israel- please sign pended ENT order so Rodney can contact Dr Craft for consult. Silvia Jha RN * Telephone Encounter - Silvia Jha RN - 09/21/2023 9:05 AM EDT Order pended- please review before signing. Silvia Jha RN * Telephone Encounter - Rodney Rinaldi - 09/21/2023 7:16 AM EDT Images from the original note were not included. Abdi Israel MD Stock, Khushboo Linda MD, MD Cc: Anita Pressley LPN; Silvia Jha, LUCIE; Rodney Rinaldi Nd Dr. Mcintyre - I appreciate the update and the context for the pathology results. Rashid/Ang/Tiff - please refer Ms. Guerrero to Dr. Craft for consideration of excisional biopsy. Thanks! Abdi Dailey please place orders, thank you! documented in this encounterSt. Mary'[facility] Center06-14-2024 Telephone encounter Note * Telephone Encounter - Rodney Rinaldi - 09/25/2023 7:21 AM EDT Email sent to cancer answer line for scheduling thanks [facility]06-13-2024 Telephone encounter Note* Telephone Encounter - Silvia Jha RN - 09/24/2023 3:32 PM EDT Tiff- Dr Israel signed ENT order for Dr Craft. Please schedule and let him know when this consult can be done. Thank you! Silvia Jha RN [facility]06-12-2024 Telephone encounter Note* Telephone Encounter - Silvia Jha RN - 09/23/2023 8:[address] Israel- please sign pended ENT order so Rodney can contact Dr Craft for consult. Silvia Jha RN [facility]06-[facility] Telephone encounter Note* Telephone Encounter - Silvia Jha RN - 09/21/2023 9:05 AM EDT Order pended- please review before signing. Silvia Jha RN [facility]06-10-2024 Telephone encounter Note* Telephone Encounter - Rodney Rinaldi - 09/21/2023 7:16 AM EDT Images from the original note were not included. Abdi Israel MD Stock, Sarah E, MD, Cc: Anita Pressley LPN; Silvia Jha, LUCIE; Rodney Rinaldi Dr. - I appreciate the update and the context for the pathology results. Rashid/Ang/Tiff - please refer Ms. Guerrero to Dr. Craft for consideration of excisional biopsy. Thanks! Abdi Dailey please place orders, thank you! [facility]06-[facility] Surgery Surgical operation note* Brief Op Note - Khushboo Mcintyre MD, MD - 09/16/2023 11:06 AM EDTSummary: Left cervical lymph node biopsy BRIEF OPERATIVE / PROCEDURE NOTE LOG ID: [id number] SURGERY/PROCEDURE DATE: 09/16/2023 INCISION/PROCEDURE START TIME: 10:42 AM INCISION CLOSE/PROCEDURE END TIME: 11:02 AM SURGEON(S)/PROCEDURALIST(S) AND CRIBBER(S): Surgeon(s) and Role: * Khushboo Mcintyre MD, [...] DATE: September 16, 2023 TIME: 11:[address] [facility] Work Phone: 1(731) 699-660806-05-2024 Surgical operation note* Brief Op Note - Khushboo Mcintyre MD, MD - 09/16/2023 11:06 AM EDTSummary: Left cervical lymph node biopsy BRIEF OPERATIVE / PROCEDURE NOTE LOG ID: [id number] SURGERY/PROCEDURE DATE: 09/16/2023 INCISION/PROCEDURE START TIME: 10:42 AM INCISION CLOSE/PROCEDURE END TIME: 11:02 AM SURGEON(S)/PROCEDURALIST(S) AND CRIBBER(S): Surgeon(s) and Role: * Khushboo Mcintrye MD, MD - Primary No Additional Staff [...] 2023 TIME: 11:06 AM documented in this encounterSt. Mary'S Medical Center06-05-2024 Instructions* Patient Education - Rashid Howell RN - 09/16/2023 10:24 AM EDT AMBULATORY PATIENT EDUCATION TOPIC: Survival Skills: HEALTH [...] Signed By: Rashid Howell RN In Department: [facility] MAIN FB36 [facility]06-05-2024 Miscellaneous Notes* Patient Education - Rashid Howell RN - 09/16/2023 10:24 AM EDT AMBULATORY PATIENT EDUCATION TOPIC: Survival Skills: HEALTH [...] Department: HOSP MAIN FB36 documented in this encounterSt. Mary'S Medical Center06-03-2024 Telephone encounter Note * Telephone Encounter - Abdi Israel MD - 09/14/2023 10:56 AM EDT Thanks! Abdi [facility]06-[facility] Miscellaneous Notes* Telephone Encounter - Abdi Israel MD - 09/14/2023 10:56 AM EDT Thanks! Abdi * Telephone Encounter - Rodney Rinaldi - 09/14/2023 10:31 AM EDT Patient is scheduled 09/15 for biopsy * Telephone Encounter - Rodney Rinaldi - 09/14/2023 9:55 AM EDT Hey Girl, just checking on this one thanks * Telephone Encounter - Abdi Israel MD - 09/08/2023 10:37 AM EDT Signed - thanks! Abdi * Telephone Encounter - Abdi Israel MD - 09/08/2023 9:51 AM EDT Yes please - Abdi * Telephone Encounter - Rodney Rinaldi - 09/08/2023 7:23 AM EDT Images from the original note were not included. Abdi Israel MD Graves, Ariana, LPN Cc: Silvia Jha, LUCIE; Rodney Rinaldi Please set Ms. Guerrero up for an US guided biopsy of one of the lymph nodes in the neck seen on PET [facility] at either [facility] or [place]. Thanks! Abdi documented in this encounterSt. Mary'S Medical Center06-03-2024 Telephone encounter Note * Telephone Encounter - Rodney Rinaldi - 09/14/2023 10:31 AM EDT Patient is scheduled 09/[address] [facility]06-[facility] Nurse Note* Yakelin Onofre LPN - 09/14/2023 10:29 AM EDT Pre- e instructions: Address: [address] Contacted patient and confirmed appt. for biopsy scheduled on 09/16/23, at [facility]. Diet: Procedure to be done with local anesthetic, you may eat, drink and take medications as prescribed the day of this procedure. Medications: IF ok with your Prescribing Provider: RADIOLOGY RECOMMENDS THESE MEDICATION RESTRICTIONS : None Labs: Lab work needs to be drawn by 09/15/[address] [facility] Lab. Arrival: Please bring your Photo ID and Insurance Card. A general consent may need to be signed. Arrival at 8:30am to desk QB-1 ([facility]) and check in for your procedure. Reject Opener And Filler/Transportation: Reject Opener And Filler not necessary Written instructions provided to patient via transOMIC If you have any questions please call [phone] [facility]06-03-2024 Nurse Note* Yakelin Onofre LPN - 09/14/2023 10:29 AM EDT Pre- e instructions: Address: [address] Contacted patient and confirmed appt. for biopsy scheduled on 09/16/23, at [facility]. Diet: Procedure to be done with local anesthetic, you may eat, drink and take medications as prescribed the day of this procedure. Medications: IF ok with your Prescribing Provider: RADIOLOGY RECOMMENDS THESE MEDICATION RESTRICTIONS : None Labs: Lab work needs to be drawn by 09/15/[address] [facility] Lab. Arrival: Please bring your Photo ID and Insurance Card. A general consent may need to be signed. Arrival at 8:30am to desk QB-1 ([facility]) and check in for your procedure. Reject Opener And Filler/Transportation: Reject Opener And Filler not necessary Written instructions provided to patient via transOMIC If you have any questions please call [phone] documented in this encounterSt. Mary'S Medical Center06-03-2024 Telephone encounter Note * Telephone Encounter - Neha Leyva - 09/14/2023 10:17 AM EDT Spoke to pt and scheduled biopsy for 09/16/23. [facility]06-03-[facility] Miscellaneous Notes* Telephone Encounter - Neha Leyva - 09/14/2023 10:17 AM EDT Spoke to pt and scheduled biopsy for 09/16/23. * Telephone Encounter - Osito Galicia MD - 09/09/2023 9:31 AM EDT RADIOLOGIST REQUEST / APPROVAL FORM STAFF RADIOLOGIST: Dr. Niko Gatica PROCEDURE TO BE DONE UNDER: US PROCEDURE REQUESTED: FNA Requested PROCEDURE: Approved TIME SLOT NEEDED: 1 Hour NOTES: None SPECIAL LABS/ PROCESSING: None Pre-procedure labs: CBC: ordered INR: not needed COVID: not needed SIR Bleeding risk category for this procedure: intermediate-high risk. Reference from [facility] G[employer] Mouth Cutter: https://Factabase.[email or web address]/dotNet/documents/?[email or web address]=[email or web address] STAFF SIGNATURE: Osito Galicia MD DATE: September 09, 2023 TIME: 9:31 AM * Telephone Encounter - Yakelin Onofre LPN - 09/08/2023 11:34 AM EDT BX. COORDINATOR INFORMATION LAB RESULTS: No results [...] Once exam is complete flush line and de-accessaccording to line specific nursing protocol in the [...] DATE: September 08, 2023 TIME: 11:34 AM * Telephone Encounter - Chloe Nicole - 09/08/2023 10:43 AM EDTSummary: Cervical lymph node bx RADIOLOGY CALL CENTER INTAKE DATE: 09/08/2023 TIME: 10:44am REQUESTING STAFF: Abdi Israel MD PHONE/PAGER: [phone] SPECIFICS OF THE REQUEST:Cervical lymph node bx SPECIAL REQUESTS: TISSUE SAMPLE, LABWORK: N/A IS THIS REQUEST PART OF A RESEARCH PROTOCOL: No MEDICAL DIAGNOSIS: Malignant neoplasm of unspecified part of unspecified bronchus or lung (HCC) [C34.90] TYPE AND DATE OF THE EXAM THAT IS THE BASIS OF THE REQUEST: PET 09/01/2023 IMAGING: [facility] Note to all persons requesting biopsies: All biopsy requests will be scheduled as quickly as possible, based on the clinical urgency, availability of appointment times, the need to hold anti-thrombolytic therapy (aspirin, blood thinners) and the patient s schedule, including the need for an available driver helper. If a percutaneous biopsy or drainage is not felt to be safe or an alternative method for establishing a diagnosis is possible, this will be discussed directly with the requesting physician. documented in this encounterSt. Mary'[facility]06-03-2024 Telephone encounter Note * Telephone Encounter - Rodney Rinaldi - 09/14/2023 9:55 AM EDT Hey Girl, just checking on this one thanks [facility]-29[facility] Telephone encounter Note* Telephone Encounter - Osito Galicia MD - 09/09/2023 9:31 AM EDT RADIOLOGIST REQUEST / APPROVAL FORM STAFF RADIOLOGIST: Dr. Niko Gatica PROCEDURE TO BE DONE UNDER: US PROCEDURE REQUESTED: FNA Requested PROCEDURE: Approved TIME SLOT NEEDED: 1 Hour NOTES: None SPECIAL LABS/ PROCESSING: None Pre-procedure labs: CBC: ordered INR: not needed COVID: not needed SIR Bleeding risk category for this procedure: intermediate-high risk. Reference from [facility] [employer]: [email or web address]/?[email or web address] STAFF SIGNATURE: Osito Galicia MD DATE: September 09, 2023 TIME: 9:[address] [facility] Work Phone: [phone] Telephone encounter Note* Telephone Encounter - Yakelin Onofre LPN - 09/08/2023 11:34 AM EDT BX. COORDINATOR INFORMATION LAB RESULTS: No results [...] Once exam is complete flush line and de-accessaccording to line specific nursing protocol in the [...] DATE: September 08, 2023 TIME: 11:[address] [facility]-28-[facility] Telephone encounter Note* Telephone Encounter - Chloe Nicole - 09/08/2023 10:43 AM EDTSummary: Cervical lymph node bx RADIOLOGY CALL CENTER INTAKE DATE: 09/08/2023 TIME: 10:44am REQUESTING STAFF: Abdi Israel MD PHONE/PAGER: [phone] SPECIFICS OF THE REQUEST:Cervical lymph node bx SPECIAL REQUESTS: TISSUE SAMPLE, LABWORK: N/A IS THIS REQUEST PART OF A RESEARCH PROTOCOL: No MEDICAL DIAGNOSIS: Malignant neoplasm of unspecified part of unspecified bronchus or lung (HCC) [C34.90] TYPE AND DATE OF THE EXAM THAT IS THE BASIS OF THE REQUEST: PET 09/01/2023 IMAGING: [facility] Note to all persons requesting biopsies: All biopsy requests will be scheduled as quickly as possible, based on the clinical urgency, availability of appointment times, the need to hold anti-thrombolytic therapy (aspirin, blood thinners) and the patient s schedule, including the need for an available driver helper. If a percutaneous biopsy or drainage is not felt to be safe or an alternative method for establishing a diagnosis is possible, this will be discussed directly with the requesting physician. T [facility]05-28-2024 Telephone encounter Note* Telephone Encounter - Abdi Israel MD - 09/08/2023 10:37 AM EDT Signed - thanks! Abdi [facility]05-28-2024 Telephone encounter Note* Telephone Encounter - Abdi Israel MD - 09/08/2023 9:51 AM EDT Yes please - Abdi [facility]-28-[facility] Telephone encounter Note* Telephone Encounter - Rodney Rinaldi - 09/08/2023 7:23 AM EDT Images from the original note were not included. Abdi Israel MD Graves, Ariana, LPN Cc: Silvia Jha RN; Rodney Rinaldi Please set Ms. Guerrero up for an US guided biopsy of one of the lymph nodes in the neck seen on PET CT at either [facility] or [facility]. Thanks! Abdi [facility]05-[facility] Consult note* Stacia Irving RN - 09/01/2023 12:45 PM EDT Radiology Service Progress Note DATE OF SERVICE: [...] Value Ref Range Status 04/24/2022 109 >=60 mL/min/1.73m Final Comment: Estimated Glomerular Filtration Rate (eGFR) is calculated using the 2020 CKD-EPI creatinine equation. This equation utilizes serum creatinine, sex, and age as parameters. The creatinine assay has traceable calibration to isotope dilution- mass spectrometry. Refer to KDIGO guidelines for clinical interpretation. In patients with unstable renal function, e.g. those with acute kidney injury, the eGFRmay not accurately reflect actual GFR. eGFR- Date [...] DATE: September 01, 2023 TIME: 12:54 PM documented in this encounterSt. Mary'S Medical Center05-21-2024 History of Present illness Narrative* Sahara Briceno, RT(R) - 09/01/2023 12:45 PM EDT RADIOLOGY SERVICE PROGRESS NOTE SERVICE DATE: 09/01/2023 [...] information regarding radiation safety can be found usingthis link: [email or web address] 20Diagnostic%20Nuclear%20Medicine%20Procedures.pdf SIGNATURE: RT Fox(Araseli) PATIENT NAME: CINTHIA Guerrero DATE: September 01, 2023 TIME: 1:23 PM PAGER/CONTACT #: documented in this encounterSt. Mary'S Medical Center05-21-2024 NoteHNO ID: [id number] Author: SAHARA BRICENO RT(R) Service: ? Author [...] safety can be found using this link: [email or web address] 20Diagnostic%20Nuclear%20Medicine%20Procedures.pdf SIGNATURE: RT Fox(Araseli) PATIENT NAME: CINTHIA Guerrero DATE: September 01, 2023 TIME: 1:23 PM PAGER/CONTACT #:[facility]05-21-2024 Progress note * Stacia Irving RN - 09/01/2023 12:45 PM EDT Radiology Service Progress Note DATE OF SERVICE: [...] Value Ref Range Status 04/24/2022 109 >=60 mL/min/1.73m Final Comment: Estimated Glomerular Filtration Rate (eGFR) is calculated using the 2020 CKD-EPI creatinine equation. This equation utilizes serum creatinine, sex, and age as parameters. The creatinine assay has traceable calibration to isotope dilution- mass spectrometry. Refer to KDIGO guidelines for clinical interpretation. In patients with unstable renal function, e.g. those with acute kidney injury, the eGFRmay not accurately reflect actual GFR. eGFR- Date [...] DATE: September 01, 2023 TIME: 12:[address] [facility]-15-[facility]24 Progress note Author Denver Rasmussen [facility] December 24, 2023 2:47pm Note Date/Time December 24, 2023 2:43pm [facility] [address] [place] [address] Pulmonology Progress Note Signed Patient: Cinthia Guerrero MR#: [id number] : 1960 Acct:[id number] Age/Sex: 63 / F Adm Date: 4 Loc: Room: [address] [place] [address] Type: ADM IN Attending Dr: Cassandra Andersen MD Copies to: ~ Date of Service: 12/24/2023 Subjective Subjective Narrative: Patient reports that she feels much better after addition of hypertonic saline. She would like to continue hypertonic saline after discharge. Exam Physical Exam Vital Signs: Temp Pulse Resp BP Pulse Ox O2 Del Method O2 Flow Rate 97.9 F 106 H 18 135/80 96 Nasal Cannula 2 12/24/23 04:00 12/24/23 12:00 12/24/23 12:00 12/24/23 12:00 12/24/23 12:00 12/24/23 12:00 12/24/23 12:00 FiO2 28 12/20/23 21:00 Const General: cooperative Nutritional Appearance: cachectic Orientation: alert and awake HEENT Head: normal to inspection Ears: hearing grossly normal bilaterally and external ears normal Nose: external nose normal Face and sinus: normal facial exam Eyes Eyelids: eyelids normal Neck Neck: normal visual inspection Chest Chest palpation & inspection: normal inspection of the chest Resp Effort & Inspection: retractions Auscultation: clear to auscultation bilaterally, diminished lung sounds, no rales, no rhonchi and no wheezes Cardio Rate: tachycardic Rhythm: regular rhythm Heart Sounds: S1 normal, S2 normal and no murmurs GI Inspection: normal to inspection Palpation: soft and nontender General: deferred Skin General: no rashes or lesions noted (Warm and dry) Extrem General: no pedal edema Objective Intake and Output I&O - Last 24 Hours: Intake & Output 12/23/23 12/24/23 12/24/23 23:59 07:59 15:59 Intake Total 550 / 550 450 / 450 Balance 550 / 550 450 / 450 Weight 87 lb 1.321 oz Labs 12/21/23 06:26 12/23/23 06:16 Microbiology Micro: Microbiology 3 12/22/23 21:29 Aerobic Culture - Preliminary Sputum - Expectorated Yeast Like Organism Gram Stain - Final 12/21/23 23:35 MRSA Culture - Final Nose Assessment/Plan Assessment/Plan (1) Chronic hypercapnic respiratory failure: (2) COPD (chronic obstructive pulmonary disease): (3) Pulmonary cachexia due to COPD: (4) Sleep apnea, obstructive: Plan Hospital day #3 for patient with very severe emphysema with marked pulmonary cachexia and decreased level of function. Patient has responded well to hypertonic saline with MRSA culture negative and sputum showing only a yeast which is more likely due to antibiotics and steroids. She is to be discharged today which is reasonable. She has follow up appointment scheduled with me on 02/23/2024. Documented By: Denver Rasmussen MD 4 1438 Signed By: <Electronically signed by MD Denver Rasmussen> 12/24/23 1447 [facility] Work Phone: [phone]) 571-953505-07-2024 Telephone encounter Note* Telephone Encounter - Rodney Rinaldi - 08/18/2023 9:14 AM EDT Seen patient checked her mychart yesterday for appointments. [facility] Miscellaneous Notes* Telephone Encounter - Rodney Rinaldi - 08/18/2023 9:14 AM EDT Seen patient checked her mychart yesterday for appointments. * Telephone Encounter - Rodney Rinaldi - 08/17/2023 1:18 PM EDT Called patient and left message with date and time of Time, due to her insurance It has to be put out 2 weeks I told her to please call me back if she has any questions thank you. * Telephone Encounter - Silvia Jha, LUCIE - 08/17/2023 1:00 PM EDT Scan from July was CXR. Per LORENZO, no need to get images. PSS- I spoke to pt and she is expecting your call to arrange PET here. Thank you Silvia Jha, RN * Telephone Encounter - Abdi Israel MD - 08/17/2023 9:57 AM EDT Definite changes in the left chest from previous available scan in April. Ordered PET to further characterize findings and please request CT Chest images from 07/2023. Thanks! Abdi * Telephone Encounter - Silvia Jha RN - 08/14/2023 9:33 AM EDT Pt called in to let us know she had a CT at [facility] ordered per Dr Kenyon yesterday. He called her today to let her know that there was something concerning and he wanted her to contact our office. CT report printed from [facility] and images requested. Dr Israel- please advise when you have had a chance to review. Thank you Silvia Jha RN documented in this encounterSt. Mary'[facility] Center05-06-2024 Telephone encounter Note * Telephone Encounter - Rodney Rinaldi - 08/17/2023 1:18 PM EDT Called patient and left message with date and time of Time, due to her insurance It has to be put out 2 weeks I told her to please call me back if she has any questions thank you. [facility]-06-[facility] Telephone encounter Note* Telephone Encounter - Silvia Jha RN - 08/17/2023 1:00 PM EDT Scan from July was CXR. Per LORENZO, no need to get images. PSS- I spoke to pt and she is expecting your call to arrange PET here. Thank you Silvia Jha RN [facility]05-06-2024 Telephone encounter Note* Telephone Encounter - Abdi Israel MD - 08/17/2023 9:57 AM EDT Definite changes in the left chest from previous available scan in April. Ordered PET to further characterize findings and please request CT Chest images from 07/2023. Thanks! Abdi [facility]05-[facility]-2024 Telephone encounter Note* Telephone Encounter - Silvia Jha RN - 08/14/2023 9:33 AM EDT Pt called in to let us know she had a CT at [facility] ordered per Dr Kenyon yesterday. He called her today to let her know that there was something concerning and he wanted her to contact our office. CT report printed from [facility] and images requested. Dr Israel- please advise when you have had a chance to review. Thank you Silvia Jha RN [facility]02-12-2024 NoteHNO ID: [id number] Author: ABDI IRSAEL MD Service: ? Author Type: Physician Type: Progress Notes Filed: 06/09/2023 01:43 Note Text: Radiation Oncology - Follow Up Note PATIENT NAME: CINTHIA Guerrero PATIENT DIAGNOSIS/PATIENT IDENTIFICATION: Ms. Guerrero is a 62-year-old woman with severe COPD, who is diagnosed with Stage IA3, [id number], non-small cell lung cancer arising from a [...] remains on supplemental oxygen at 2 L/min qpfgtk-pni-meaqy and continues on Pulmicort and albuterol rescue inhaler. He denies cough or hemoptysis or chest pain or difficulty swallowing today. She does note fatigue with stable appetite and hydration. 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 She otherwise denies any recent fevers, chills, [...] COPD, who is diagnosed with Stage IA3, [id number], non-small cell lung cancer arising from a [...] in the process of transitioning care between wildlife control operator. She had repeat CT imaging of the [...] which included preparing to see the patient, fcun-cu-hsut patient care, and counseling and educating the patient/family/caregiver. This document has been created with the use of voice recognition technology. It may contain inaccuracies, misspellings, inaccurate syntax or inappropriate word context that are a result of the inadequacies/shortcomings of said technology/software.[facility]02-07-2024 Miscellaneous Notes* Telephone Encounter - Rodney Rinaldi - 05/20/2023 9:59 AM EST Patient is called and scheduled for next week * Telephone Encounter - Silvia Jha RN - 05/20/2023 9:51 AM EST Pt called in and was admitted to [facility] last week. They did CT Chest. She has been waiting on insurance approval for a chest CT and will not need one now. She would like follow up arranged. Reports printed from [facility] and images requested. PSS- please call pt and arrange follow up with Dr Israel for next week. Thank you Silvia Jha RN documented in this encounterSt. Mary'S Medical Center08-17-2023 History of Present illness Narrative* Abdi Israel MD - 11/27/2022 10:30 AM EDT Images from the original note were not included. Radiation Oncology - Follow Up Note PATIENT NAME: CINTHIA Guerrero PATIENT DIAGNOSIS/PATIENT IDENTIFICATION: Ms. Guerrero is a 62-year-old woman with severe COPD, who is diagnosed with Stage IA3, [id number], non-small cell lung cancer arising from a [...] treatments and six months since her last visiton 06/02/2022. In the interim, he had multiple [...] been following up with pulmonary therapy at [facility] and with her wildlife control operator Dr. Driver and using her nebulizers. She remainson supplemental oxygen at 2 L/min via nasal [...] COPD, who is diagnosed with Stage IA3, [id number], non-small cell lung cancer arising from a [...] a radiation and lung cancer standpoint approximately 4-1/2years out from the completion of her SBRT treatments to the left chest. She however has had multiple COPD exacerbations and hospital admissions since her last visit [address] imaging from 09/24/2022 during her last admission shows no [facility] for [facility] She will follow with her wildlife control operator Dr. Driver to optimize her respiratory function and Iwill plan to see her back in approximately [...] which included preparing to see the patient, qqgi-dk-fqbd patient care, and counseling and educating the patient/family/caregiver. This document has been created with the use of voice recognition technology. It may contain inaccuracies, misspellings, inaccurate syntax or inappropriate word context that are a result of the inadequacies/shortcomings of said technology/software. documented in this encounterSt. Mary'S Medical Center08-08-2023 Miscellaneous Notes* Telephone Encounter - Anita Pressley LPN - 11/18/2022 3:29 PM EDT FYI--Dr. Driver's progress note is available in Care Everywhere. Dr. Kenyon's office note to be faxed over per his office. Anita Pressley LPN * Telephone Encounter - Rosa Victoria RN - 11/18/2022 2:47 PM EDT Pt notified, CT canceled. Rashid working on records from Dr Kenyon and Dr Driver. Images/report being pushed from [facility]. Rosa Victoria RN * Telephone Encounter - Abdi Israel MD - 11/18/2022 2:11 PM EDT Yes, please cancel CT tomorrow. In addition to the images, please request any office notes from Dr. Kenyon as well as her wildlife control operator. Thanks! Abdi * Telephone Encounter - Rosa Victoria RN - 11/18/2022 1:39 PM EDT Pt called for CT 11/19/[address]. [address] completed 09/24/22 at [facility]. CT chest verified and will send images/report. LORENZO: Would you like to cancel CT? Please advise Rosa Victoria RN documented in this encounterSt. Mary'S Medical Center03-16-2023 Evaluation note* Encounter Date Diagnosis Assessment Notes Treatment Notes Treatment Clinical Notes Jun, Abnormality present on gross pathology (ICD-10 - R89.7) Patient has chronic respiratory problems systemic symptoms of infection as well as change in her cough has not occurred. She also does not cough up significant sputum. Though the morphologic abnormality of fungal like structures was seen on [facility] no cultures were sent. I wanted to [...] History of lung cancer (ICD-10 - Z85.118) [facility] Other 02-20-2023 History of Present illness Narrative* Abdi Israel MD - 06/02/2022 11:53 PM EST Radiation Oncology - Follow Up Note PATIENT NAME: CINTHIA Guerrero PATIENT Signed by: Abdi Israel MD I spent a total of 20 minutes on the date of the service which included preparing to see the patient, lvwl-of-msaq patient care, and counseling and educating the patient/family/caregiver. This document has been created with the use of voice recognition technology. It may contain inaccuracies, misspellings, inaccurate syntax or inappropriate word context that are a result of the inadequacies/shortcomings of said technology/software. documented in this encounterCleveland [id number] Evaluation note* Encounter Date Diagnosis Assessment Notes [...] History of lung cancer (ICD-10 - Z85.118) [facility] Other 02-01-2023 Miscellaneous Notes* Telephone Encounter - Abdi Israel MD - 05/14/2022 10:40 PM EST Thanks! Abdi * Telephone Encounter - Kendal Jha [facility] - 05/14/2022 1:59 PM EST Records faxed to Dr. Conde. Requested images be pushed to [facility]. * Telephone Encounter - Telma [...] yesterday showing fungal/aspergillus infection. Spoke with her wildlife control operator, Dr. Cross, today and agreed to refer [...] Thanks Anita Pressley LPN documented in this encounterSt. Mary'S Medical Center01-27-2023 History of Present illness Narrative* Interface Note - 05/09/2022 8:00 PM EST Epic Scheduled Downtime: 05/10/2022 1:00:00 AM to 05/10/2022 3:56:00 AM documented in this encounterSt. Mary'S Medical Center01-27-2023 Nurse Note* Luz Maria Blanca RN - [...] Luz Maria Blanca RN documented in this encounterSt. Mary'S Medical Center01-16-2023 History of Present illness Narrative* Vitor Kaur MD - 04/28/2022 3:03 PM EST VIRTUAL VISIT PROGRESS NOTE This is a virtual visit using transOMIC video visit. It required patient-provider interaction for [...] eating well. COPD managed locally by a wildlife control operator. HISTORY REVIEWED (electronic chart updated): PAST MEDICAL [...] Emphysema. Controlled and stable; managed by local wildlife control operator. I spent a total of 60 minutes on the date of the service which included preparing to see the patient, cnbj-xv-palz patient care, completing clinical documentation, obtaining and/or reviewing separately obtained history, performing a medically appropriate examination, counseling and educating the pat ient/family/caregiver, ordering medications, tests, or procedures, communicating with other HCPs (not separately reported), independently interpreting results (not separately reported), communicatingresults to the patient/family/caregiver, and care coordination (not separately reported) Vitor Kaur MD April 28, 2022 documented in this encounterSt. Mary'S Medical Center01-11-2023 Miscellaneous Notes* Telephone Encounter - Telma Pak - 04/23/2022 9:58 AM EST Patient has been scheduled for both & confirmed appt day & time. Telma Pak * Telephone Encounter - Telma Pak - 04/23/2022 9:10 AM EST Called patient to schedule her for EKG & labs per e-mail. No answer, LMOV requesting a returnedphone call. Telma Pak documented in this encounterSt. Mary'S Medical Center01-10-2023 History of Present illness Narrative* Vitor Kaur [...] try to get labs/EKG/COVID swab done at [facility] Does the pt need cardiac clearance?: No Is she on anticoagulants/anti-plt therapy?: No Nursing Considerations: (ie: correction, TB, respiratory isolation, clinical trial, Specific protocol etc.) none Additional notes to the icer machine 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 Please try to access the PET avid area if possible. Consultation request/referral by: Abdi Israel MD ([facility]) Reviewed by: PHANI Kaur MD April 22, 2022 3:49 PM Addendum: CBC with diff: WBC 6.81 03/02/2018 RBC 4.94 03/02/2018 Hemoglobin 14.7 03/02/2018 Hematocrit 44.5 03/02/2018 MCV 90.1 03/02/2018 MCH 29.8 03/02/2018 MCHC 33.0 03/02/2018 RDW-CV 12.4 03/02/2018 Platelet Count 234 03/02/2018 MPV 10.3 03/02/2018 Neut% 64.3 03/02/2018 Lymph% 25.3 03/02/2018 Washburn% 9.1 03/02/2018 Eosin% 0.7 03/02/2018 Baso% 0.6 03/02/2018 Abs Neut (ANC) 4.36 03/02/2018 Abs [place]burn 0.62 03/02/2018 Abs Eosin 0.05 03/02/2018 Abs [...] - 0.96 mg/dL Final documented in this encounterSt. Mary'S Medical Center01-10-2023 Miscellaneous Notes* Telephone Encounter - Anita Pressley [...] time. Anita Pressley LPN documented in this encounterSt. Mary'S Medical Center12-02-2022 History of Present illness Narrative* Abdi Israel MD - 03/14/2022 11:44 PM EST Radiation Oncology - Follow Up Note PATIENT NAME: Omaira Guerrero PATIENT Signed by: Abdi Israel MD I spent a total of 20 minutes on the date of the service which included preparing to see the patient, nxsd-jy-cluj patient care, and counseling and educating the patient/family/caregiver. This document has been created with the use of voice recognition technology. It may contain inaccuracies, misspellings, inaccurate syntax or inappropriate word context that are a result of the inadequacies/shortcomings of said technology/software. documented in this encounterSt. Mary'S Medical Center11-11-2022 Miscellaneous Notes* Telephone Encounter - Telma Pak [...] then follow-up to review documented in this encounterSt. Mary'S Medical Center11-10-2022 Miscellaneous Notes* Telephone Encounter - Anita Pressley [...] then follow-up to review documented in this encounterSt. Mary'S Medical Center02-24-2022 History of Present illness Narrative* Abdi Israel MD - 06/06/2021 4:50 PM EST Radiation Oncology - Follow Up Note PATIENT NAME: Omaira Guerrero PATIENT DIAGNOSIS/PATIENT IDENTIFICATION: Ms. Guerrero is a 60-year-old woman with severe COPD, who is diagnosed with Stage IA3, [id number], non-small cell lung cancer arising from a [...] COPD, who is diagnosed with Stage IA3, [id number], non-small cell lung cancer arising from a [...] which included preparing to see the patient, lajn-tb-qzsu patient care and counseling and educating the patient/family/caregiver. This document has been created with the use of voice recognition technology. It may contain inaccuracies, misspellings, inaccurate syntax or inappropriate word context that are a result of the inadequacies/shortcomings of said technology/software. documented in this encounterSt[facility]21 NoteChief Complaint consultation for nevus HPI Staff 60 year old female presents on consultation from Dr. Kenyon for right lower leg fresh colored skin lesion. Present for 4 months. Scabbed area from recent trama. Denies itching. Also notes dark pigmentedlesion to right taoism. Present 4 months. Does not bleed or itch. History of Present Illness 60 yo female with h/o COPD, previous lung cancer, on oxygen; referred for changing skin lesions; right lower extremity lesion enlarging; recently scratched so scabbed over; no bleeding; right taoism lesion with small scab, no pain or [...] nodes, cyanosis, clubbing. Skin: no rashes right taoism with 4 mm raised, erythematous lesion with [...] of lung, section. Medications albuterol 0.083% Inh Imra 3 mL, NEB, q6hr Bevespi Aerosphere 9 [...] Brother. Cardiac arrest: Mother, Father and Sister.[facility] HospitalComment on above:Result Comment: Electronically Signed By: JIM DAVENPOTR, Jose Domínguez\Date and Time Signed: 01/11/21 11:20 [id number] History general Narrative - Reported* Type Description Date Medical History COPD Surgical History appendectomy Surgical History csection Hospitalization History PNA at [place] 05/2011 [employer] Other Evaluation note* Diagnosis Non-small cell cancer of left lung (HCC)- Primary Neoplasm of lung Neoplasm of unspecified nature of respiratory system [facility] Neoplasm of lung- Primary Neoplasm of unspecified nature of respiratory system [facility] Diagnosis Non-small cell cancer of left lung (HCC)- Primary [facility] Lung mass- Primary Swelling, mass, or lump in chest [facility] Diagnosis Preoperative examination- Primary Preoperative examination, unspecified Bronchiolar disease Other diseases of trachea and bronchus [facility]* Diagnosis Non-small cell cancer of left lung (HCC)- Primary Lung mass Swelling, mass, or lump in chest Centrilobular emphysema (HCC) Other emphysema Bronchiolar disease Other diseases of trachea and bronchus [facility] Diagnosis Bronchiolar disease Other diseases of trachea and bronchus Lung nodule Solitary pulmonary nodule [facility]* Diagnosis Aspergillus pneumonia (HCC)- Primary Aspergillosis Non-small cell cancer of left lung (HCC) [facility]* Diagnosis Non-small cell cancer of left lung (HCC)- Primary [facility] noteNo [facility] [employer] Other evaluation note* Diagnosis Neoplasm of lung- Primary Neoplasm of unspecified nature of respiratory system documented in this encounter [facility] note* Diagnosis Onset Date Resolution Status Chronic respiratory failure with hypoxia acute COPD exacerbation acute Exertional shortness of breath acute Pneumonia acute Pulmonary cachexia due to COPD acute Tachycardia acute [facility] Work Phone: evaluation note* Diagnosis Onset Date Resolution Status Acute hypoxic respiratory failure acute Cachexia acute Chronic respiratory failure with hypoxia acute COPD exacerbation acute Exertional shortness of breath acute Pneumonia acute Pulmonary cachexia due to COPD acute Tachycardia acute [facility] Work Phone: evaluation note* Diagnosis Malignant neoplasm of unspecified part of unspecified bronchus or lung (HCC)- Primary 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* Diagnosis Preoperative examination- [...] via [place]. Follows with outside pulm at [facility], Dr. Valery DAVIS in October per pt. Diminished breath sounds bilaterally throughout, no wheezing. SpO2 95% on 2L O2. 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 Ptreports she called wildlife control operator's office because she felt like her breathing [...] treated with SBRT. [facility] Diagnosis Onset Date Resolution Status Chronic respiratory failure with hypoxia acute COPD (chronic obstructive pulmonary disease) acute Chronic respiratory failure with hypoxia acute COPD (chronic obstructive pulmonary disease) acute Sleep apnea, obstructive acu te [facility] Work Phone: Evaluation note* Diagnosis Lymphadenopathy- Primary [...] hazards to health [facility]* Diagnosis Malignant neoplasm of unspecified part [...] hazards to health [facility]* Diagnosis Onset Date Resolution Status Chronic respiratory failure with hypoxia acute COPD (chronic obstructive pulmonary disease) acute Chronic respiratory failure with hypoxia acute COPD (chronic obstructive pulmonary disease) acute Sleep apnea, obstructive acu te Chronic respiratory failure with hypoxia acute COPD (chronic obstructive pulmonary disease) acute Pulmonary cachexia due to COPD acute Sleep apnea, obstructive acu te [facility] Work Phone: Evaluation note* Diagnosis Malignant neoplasm of unspecified part of unspecified bronchus or lung (HCC) Preoperative examination- Primary Preoperative examination, unspecified Metastasis [...] hazards to health [facility]* Diagnosis Onset Date Resolution Status Chronic respiratory failure with hypoxia acute COPD (chronic obstructive pulmonary disease) acute Chronic respiratory failure with hypoxia acute COPD (chronic obstructive pulmonary disease) acute Sleep apnea, obstructive acu te Acute hypoxic respiratory failure acute Cachexia acute Chronic hypercapnic respiratory failure acute Chronic respiratory failure with hypoxia acute COPD (chronic obstructive pulmonary disease) acute COPD exacerbation acute Pulmonary cachexia due to COPD acute Sleep apnea, obstructive acu te [facility] Work Phone: History and physical note Author Mg Vaughn [facility] December 20, 2023 10:58pm Note Date/Time December 20, 2023 10:58pm [facility] [address] [place] [address] Hospitalist H&P Signed Patient: Cinthia Guerrero MR#: [id number] : 1960 Acct:[id number] Age/Sex: 63 / F Adm Date: 4 Loc: Room: [address] [place] [address] Type: ADM INOo Attending Dr: Mg Vaughn MD Copies to: MD Adithya Koroma MD~ HPI DATE OF EXAMINATION: 12/20/23 CHIEF COMPLAINT: COPD exacerbation HISTORY OF PRESENT ILLNESS: This is 61-year-old female with chronic respiratory failure secondary to COPD, on supplemental oxygen at home, pulmonary cachexia, [place] [facility] [facility]. At that time COVID test was done which was negative. She was there for 3 days and was discharged this on prednisone and Augmentin. She presented to our emergency department with worsening shortness of breath and according to the patient she is coughing up thick greenish phlegm. In the emergency department she was noted to be tachycardic with a heart rate as high as 120s she was also tachypneic. All other vitals were unremarkable. She was saturating 94% on 2 L of supplemental oxygen. She received DuoNebs and magnesium. A VBG was done and showed hypercapnic respiratory failure with a pCO2 of 84 so she was placed on BiPAP. Chest x-ray did not show any infiltrate. She is currently on 2 L of supplemental oxygen and does not appear to be in any respiratory distress. She denies any fever, chills, nausea or vomiting. Review of Systems Review of Systems All other systems reviewed & are negative unless noted below or in HPI [facility] Medical History (Updated 12/20/23 @ 21:57 by Rip Celestin DO) Tachycardia Lung cancer Lung nodule Emphysema/COPD COPD (chronic obstructive pulmonary disease) Surgical History Hx of lymph node biopsy left shoulder CC on 11/18/23 Hx of section History of appendectomy Family History Brother Coronary artery disease Legacy FamHx Relation: Brother(s) Heart disease Legacy FamHx Relation: Brother(s) Father Coronary artery disease Heart disease Sister Coronary artery disease Heart disease Social History Smoking Status: Former smoker Tobacco Type: cigarettes Substance Use Type: None Meds Medications and Allergies Allergies No Known Allergies Allergy (Verified 12/20/23 19:46) Home Medications ipratropium 0.5 mg-albuterol 3 mg (2.5 mg base)/3 mL nebulization soln 3 ml inhalation Q6H 05/13/23 [History Confirmed 12/20/23] montelukast 10 mg tablet 10 mg PO HS 05/13/23 [History Confirmed 12/20/23] guaifenesin 600 mg tablet, extended release 12 hr (Mucinex) 600 mg PO BID PRN cough #20 tabs 05/17/23 [Rx Confirmed 12/20/23] nystatin 100,000 unit/mL oral suspension 500,000 unit (5 mL) PO TID PRN White yeast in your mouth #200 mL 05/17/23 [Rx Confirmed 12/20/23] Oxygen 09/29/23 [History Confirmed 12/20/23] albuterol sulfate 90 mcg/actuation aerosol inhaler 2 inh inhalation Q6HR PRN shortness of breath or wheezing 09/29/23 [History Confirmed 12/20/23] cetirizine 10 mg tablet 10 mg PO DAILY 09/29/23 [History Confirmed 12/20/23] theophylline 200 mg capsule,extended release 24 hr (Mi-24) 200 mg PO DAILY 09/29/23 [History Confirmed 12/20/23] budesonide 0.5 mg/2 mL suspension for nebulization 0.5 mg (2 mL) inhalation Q12H30 days #120 mL 11/11/23 [Rx Confirmed 12/20/23] Bilevel Positive Airway Pressure (BiPAP) 12/03/23 [History Confirmed 12/20/23] prednisone 5 mg tablet 5 mg PO DAILY 12/03/23 [History Confirmed 12/20/23] amoxicillin 875 mg-potassium clavulanate 125 mg tablet 1 tab PO BID 12/20/23 [History Confirmed 12/20/23] Exam Physical Exam Vital Signs: Temp Pulse Resp BP Pulse Ox O2 Del Method O2 Flow Rate 97.3 F L 107 H 18 126/78 94 L Nasal Cannula 2 12/20/23 19:49 12/20/23 22:30 12/20/23 22:30 12/20/23 22:30 12/20/23 22:30 12/20/23 22:30 12/20/23 22:30 FiO2 28 12/20/23 21:00 Narrative: General: Sitting up in the bed in no acute distress. HEENT: Normocephalic/atraumatic. Pupils are equal and reactive to light and accommodation. Cardiovascular: Tachycardic. Regular rate and rhythm. Respiratory: Mild expiratory wheezing. No rales or rhonchi appreciated. GI: Soft, no organomegaly appreciated. Extremity: No edema. Neuro: Awake, alert, and oriented x 3. Results - Hospitalist H&P Lab Results Labs: Laboratory Last Values Corrected WBC 8.4 X10E3/uL (3.8-11.6) 12/20/23 20:08 Uncorrected WBC Count 8.4 x10E3/uL (3.8-11.6) 12/20/23 20:08 RBC 5.37 X10E6/uL (3.60-5.00) H 12/20/23 20:08 Hgb 14.5 g/dL (11.8-15.4) 12/20/23 20:08 Hct 44.5 % (34.0-46.4) 12/20/23 20:08 MCV 82.9 fl (80-100) 12/20/23 20:08 MCH 27.0 pg (24.7-34.3) 12/20/23 20:08 MCHC 32.6 g/dL (32.0-35.0) 12/20/23 20:08 RDW 14.1 % (11.9-15.3) 12/20/23 20:08 Plt Count 346 x10E3/uL (150-450) 12/20/23 20:08 MPV 7.0 fl (6.3-10.7) 12/20/23 20:08 Neut % (Auto) 83.9 % (.) 12/20/23 20:08 Lymph % (Auto) 9.8 % (.) 12/20/23 20:08 Washburn % (Auto) 5.9 % (.) 12/20/23 20:08 Eos % (Auto) 0.1 % (.) 12/20/23 20:08 Baso % (Auto) 0.3 % (.) 12/20/23 20:08 Nucleat RBC Rel Count 0.1 /100 WBC (0-0.5) 12/20/23 20:08 Neut # (Auto) 7.0 x10E3/uL (1.8-7.7) 12/20/23 20:08 Lymph # (Auto) 0.8 x10E3/uL (1.00-4.8) L 12/20/23 20:08 [place]burn # (Auto) 0.5 x10E3/uL (0.0-0.8) 12/20/23 20:08 Eos # (Auto) 0.0 x10E3/uL (0.0-0.45) 12/20/23 20:08 Baso # (Auto) 0.0 x10E3/uL (0.0-0.2) 12/20/23 20:08 Monocyte Dist Width 16.32 % (0.00-20.00) 12/20/23 20:08 Sample Site Venous 12/20/23 20:21 VBG pH 7.37 (7.32-7.43) 12/20/23 20:21 VBG pCO2 84.8 mmHg (38.0-50.0) H* 12/20/23 20:21 VBG pO2 46.5 mmHg (35.0-45.0) H 12/20/23 20:21 VBG HCO3 47.6 mmol/L (23.0-29.0) H 12/20/23 20:21 VBG Total CO2 50.2 mmol/L (24.0-29.0) H 12/20/23 20:21 VBG O2 Saturation 83.6 % (73.0-76.0) H 12/20/23 20:21 VBG O2 Content 8.2 mmol/L (6.6-9.7) 12/20/23 20:21 VBG Base Excess 16.9 mmol/L (-3.0-3.0) H 12/20/23 20:21 O2 Delivery Device Nasal cannula 12/20/23 20:21 FiO2 28 % 12/20/23 20:21 Critical Value 12/20/23 20:21 PHA Creatinine Clear 94.74 12/20/23 20:08 Sodium 136 mmol/L (136-145) 12/20/23 20:08 Potassium 4.4 mmol/L (3.5-5.1) 12/20/23 20:08 Chloride 86 mmol/L (98-107) L 12/20/23 20:08 Carbon Dioxide > 45.0 mmol/L (21.0-31.0) H 12/20/23 20:08 Anion Gap TNP 12/20/23 20:08 BUN 11 mg/dL (7-25) 12/20/23 20:08 Creatinine 0.41 mg/dL (0.60-1.20) L 12/20/23 20:08 Est GFR (CKD-EPI) > 60.0 mL/Min 12/20/23 20:08 Glucose 103 mg/dL (70-100) H 12/20/23 20:08 Calcium 9.8 mg/dL (8.6-10.3) 12/20/23 20:08 Total Bilirubin 0.3 mg/dl (0.3-1.0) 12/20/23 20:08 AST 20 U/L (13-39) 12/20/23 20:08 ALT 28 U/L (7-52) 12/20/23 20:08 Alkaline Phosphatase 77 U/L (34-104) 12/20/23 20:08 Total Creatine Kinase 24 U/L (30-223) L 12/20/23 20:08 Troponin I High Sens 4.3 pg/mL (0.0-15.0) 12/20/23 20:08 B-Natriuretic Peptide 44.0 pg/mL (5-100) 12/20/23 20:08 Total Protein 7.6 gm/dL (6.4-8.9) 12/20/23 20:08 Albumin 4.2 gm/dL (3.5-5.7) 12/20/23 20:08 Globulin 3.4 gm/dL 12/20/23 20:08 Albumin/Globulin Ratio 1.2 12/20/23 20:08 Theophylline 3.6 ug/mL (10.0-20.0) L 12/20/23 20:08 ABG Interpretation ABG results: 12/20/23 20:21 VBG pH 7.37 VBG pCO2 84.8 H* VBG pO2 46.5 H VBG HCO3 47.6 H VBG Total CO2 50.2 H VBG O2 Saturation 83.6 H VBG Base Excess 16.9 H Assessment & Plan Assessment/Plan (1) Chronic respiratory failure with hypoxia: (2) COPD (chronic obstructive pulmonary disease): (3) Pulmonary cachexia due to COPD: (4) Sleep apnea, obstructive: Plan -Admit for observation. -Start Solu-Medrol 40 mg every 8 hours. Continue Augmentin. -Will consult pulmonology. Dr. Gannon is her wildlife control operator. -Budesonide via nebulization every 12 hours, and DuoNebs [id number]. -O2 supplementation to maintain O2 sats greater than 90%. She can use BiPAP intermittently or when asleep -Repeat ABG in the morning -GI/DVT prophylaxis -She is full code IP vs OBS Justification Based on differential dx, clinical care plan, and risk of adverse events, if untreated, in my clinical judgement this patient requires an acute care setting as: OBSERVATION because of an expectation of an under 2 midnight stay. Estimated length of stay (# of days): 2 Documented By: Mg Vaughn MD 12/042 Signed By: <Electronically signed by Mg Vaughn MD> 12/20/23 [address] [facility] Work Phone: Hospital Discharge instructions Additional Instructions I may not have addressed or treated all of your medical illnesses or the abnormal blood work or imaging studies during this hospitalization. Please ask your primary care provider to obtain [facility] records entirely to follow up on all of the abnormal physical, laboratory, and imaging findings that I have not addressed. Please return back to the emergency room or seek medical attention if your symptoms worsen or return. You asked me to give you the name of the lung specialist who is affiliated with [facility]. Please follow-up with Dr. Rasmussen regarding COPD, lung nodule and pulmonary care. Until you get your first appointment with Dr. Rasmussen, continue to follow-up with Dr. Driver guarding your lung nodule and COPD You would need to have follow-up on lung nodule that is seen before Discharging you from [facility] does not mean that your medical [...] Thank you. Continue home oxygen per chronic orders.[facility] Work Phone: [facility] for referral (narrative)* Diagnostic Procedure Only (Routine) - Additional Clinical Info Needed Specialty Diagnoses / Procedures Referred By Contac t Referred To Contact MOLECULAR & FUNCTIONAL IMAGING Diagnoses Neoplasm of lung Procedures NM PET/CT SKULL-THIGH INITIAL PET IMAGING CT ATTENUATION SKULL BASE MID-THIGH Abdi Israel MD [address] [place] [address] [place] [address] Molecular & Functional Imaging [address] [place] [address] Referral ID Status Reason Start Date Expiration Date Visits Requested Visits Authorized [id number] Additional Clinical Info Needed Auto-Generat ed Referral 2 03/22/[address] [facility] for referral (narrative)* Diagnostic Procedure Only (Routine) - Additional Clinical Info Needed Specialty Diagnoses / Procedures Referred By Contac t Referred To Contact MOLECULAR & FUNCTIONAL IMAGING Diagnoses Malignant neoplasm of unspecified part of unspecified bronchus or lung (HCC) Procedures NM PET/CT SKULL-THIGH SUBSEQUENT PET IMAGING CT ATTENUATION SKULL BASE MID-THIGH Abdi Israel MD [address] [place] [address] [place] [address] Molecular & Functional Imaging [address] [place] [address] Referral ID Status Reason Start Date Expiration Date Visits Requested Visits Authorized [id number] Additional Clinical Info Needed Auto-Generat ed Referral 08/17/2023 09/15/2024 1 1 [facility] for referral (narrative)* Outpatient Procedure (Routine) - Closed Specialty Diagnoses / Procedures [facility] To Contact [facility] Diagnoses Non-small cell cancer of left lung (HCC) Lymphadenopathy Procedures ECG COMPLETE ECG ROUTINE ECG W/LEAST 12 LDS W/I&R Teo Craft MD [address] [place] [address] [facility][Note 3] [facility] [place] [address] [place] [address] Referral ID Status Reason Start Date Expiration Date V isits Requested Visits Authorized [id number] Closed Auto-Generate d Referral 11/05/2023 10/26/2024 1 1 * Consult, Test, Treat (Routine) - Authorized Specialty Diagnoses / Procedures Referred By [facility] Referred To Contact Diagnoses Non-small cell cancer of left lung (HCC) 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) Lymphadenopathy Procedures REFER TO [facility] PREOPERATIVE OPTIMIZATION OFFICE/OUTPATIENT [facility] MDM 60 MINUTES Teo Craft MD [address] [place] [address] Referral ID Status Reason Start Date Expiration Date Visits Requested Visits Authorized [id number] Authorized PCP Requested Referral 11/05/2023 10/26/2024 1 1 [facility] for referral (narrative)* Diagnostic Procedure Only (Routine) - Closed Specialty Diagnoses / Procedures Referred By [facility] Referred To Contact MOLECULAR & FUNCTIONAL IMAGING Diagnoses Malignant neoplasm of unspecified part of unspecified bronchus or lung (HCC) Procedures NM PET/CT SKULL-THIGH SUBSEQUENT PET IMAGING CT ATTENUATION SKULL BASE MID-THIGH Abdi Israel MD [address] [place] [address] [place] [address] Molecular & Functional Imaging [address] [id number] Referral ID Status Reason Start Date Expiration Date V isits Requested Visits Authorized [id number] Closed Auto-Generate d Referral 08/21/2023 10/20/[address] 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 Advance Directive(s) Advance Directive(s) 03/19/2018 [...] COMPUTED TOMOGRAPHY THORAX W/CONTRAST Abdi Israel MD [address] [place] [address] [place] [address] Ct Imaging Referral ID Status Reason Start Date Expiration Date Visits Requested Visits Authorized [id number] Pending Review Auto-Generat ed Referral 06/06/2022 07/06/2022 1 1 Specialty Diagnoses / Procedures Referred By Contac t Referred To Contact CT IMAGING Diagnoses Lung mass Procedures CT CHEST WO IVCON DIAGNOSTIC COMPUTED TOMOGRAPHY THORAX W/O CNTRST Vitor Kaur MD [address] [place] [address] Ct Imaging Referral ID Status Reason Start Date Expiration Date Visits Requested Visits Authorized [id number] Pending Review Auto-Generat ed Referral 04/22/2022 05/22/2023 1 1 Specialty Diagnoses / Procedures Referred By Contac t Referred To Contact [facility] Diagnoses Lung mass Procedures ECG COMPLETE ECG ROUTINE ECG W/LEAST 12 LDS W/I&R Vitor Kaur MD [address] [place] [address] [facility] [place] [address] [place] [place] [address] Referral ID Status Reason Start Date Expiration Date Visits Requested Visits Authorized [id number] Pending Review Auto-Generat ed Referral 04/22/2022 04/22/2023 1 1 Specialty Diagnoses / Procedures Referred By Contac t Referred To Contact Infectious Diseases Diagnoses Aspergillus pneumonia (HCC) Non-small cell cancer of left lung (HCC) Procedures CONSULT TO INFECTIOUS DISEASES Abdi Israel MD [facility] [place] [address] Referral ID Status Reason Start Date Expiration Date Visits Requested Visits Authorized [id number] Ref Not Required PCP Requested Referral 05/14/2022 05/14/2023 1 1 Specialty Diagnoses / Procedures Referred By Contac t Referred To Contact CT IMAGING Diagnoses Neoplasm of lung Procedures CT CHEST W IVCON DIAGNOSTIC COMPUTED TOMOGRAPHY THORAX W/CONTRAST Abdi Israel MD [address] [facility] [place] [address] [place] [address] Referral ID Status Reason Start Date Expiration Date Visits Requested Visits Authorized [id number] Pending Review Auto-Generat ed Referral 05/13/2023 12/27/2023 1 1 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) Procedures CONSULT TO ENT OFFICE/OUTPATIENT [facility] 60 MINUTES Abdi Israel MD [facility] [place] [address] Referral ID Status Reason Start Date Expiration Date Visits Requested Visits Authorized [id number] Authorized PCP Requested Referral 09/24/2023 09/22/2024 1 1 Specialty Diagnoses / Procedures Referred By Contac t Referred To Contact CT IMAGING Diagnoses Malignant neoplasm of unspecified part of unspecified bronchus or lung (HCC) Procedures CT CHEST W IVCON DIAGNOSTIC COMPUTED TOMOGRAPHY THORAX W/CONTRAST Abdi Israel MD [address] [place] [address] Ct Imaging [facility] Referral ID Status Reason Start Date Expiration Date Visits Requested Visits Authorized [id number] Authorized Auto-Generat ed Referral 12/02/2023 01/31/2024 1 1 Specialty Diagnoses / Procedures Referred By Dwayne t Referred To Contact MOLECULAR & FUNCTIONAL IMAGING Diagnoses Malignant neoplasm of unspecified part of unspecified bronchus or lung (HCC) Procedures NM PET/CT SKULL-THIGH SUBSEQUENT PET IMAGING CT ATTENUATION SKULL BASE MID-THIGH Abdi Israel MD [address] [place] [address] [place] [address] Molecular & Functional Imaging [address] [place] [address] Referral ID Status Reason Start Date Expiration Date V isits Requested Visits Authorized [id number] Denied Auto-Generate d Referral 12/02/2023 01/31/2024 1 [...] obstructive pulmonary disease) Chief Complaint Ref: Dr. Sonia FERNANDEZ Reason for Visit Chronic respiratory failure with hypoxia COPD (chronic obstructive pulmonary disease) Chronic respiratory failure with hypoxia COPD (chronic obstructive pulmonary disease) Sleep apnea, obstructive Chief Complaint Ref: Dr. Sonia FERNANDEZ sob-hx copd Reason for Visit Chronic respiratory failure with hypoxia COPD (chronic obstructive pulmonary disease) Chronic respiratory failure with hypoxia COPD (chronic obstructive pulmonary disease) Sleep apnea, obstructive Chronic respiratory failure with hypoxia COPD (chronic obstructive pulmonary disease) Pulmonary cachexia due to COPD Sleep apnea, obstructive Chief Complaint Ref: Dr. Sonia FERNANDEZ sob-hx copd sob-hx copd Reason for Visit Chronic respiratory failure with hypoxia COPD (chronic obstructive pulmonary disease) Chronic respiratory failure with hypoxia COPD (chronic obstructive pulmonary disease) Sleep apnea, obstructive Acute hypoxic respiratory failure Cachexia Chronic hypercapnic respiratory failure Chronic respiratory failure with hypoxia COPD (chronic obstructive pulmonary disease) COPD exacerbation Pulmonary cachexia due to COPD Sleep apnea, obstructive Additional Source Comments INFORMATION SOURCE (unrecogn ized section and content) DATE CREATED AUTHOR 10/06/2017 [facility] DATE CREATED AUTHOR AUTHOR'S ORGANIZ ATION 10/09/2017 [facility] DATE CREATED AUTHOR AUTHOR'S ORGANIZ ATION 03/22/2018 [facility] DATE CREATED AUTHOR AUTHOR'S ORGANIZ ATION 03/26/2021 [facility] DATE CREATED AUTHOR AUTHOR'S ORGANIZ ATION 09/19/2022 [facility]ital DATE CREATED AUTHOR AUTHOR'S ORGANIZ ATION 08/18/2023 [facility] DATE CREATED AUTHOR AUTHOR'S ORGANIZ ATION 09/14/2023 [facility] DATE CREATED AUTHOR AUTHOR'S ORGANIZ ATION 11/19/2023 [facility] DATE CREATED AUTHOR AUTHOR'S ORGANIZ ATION 12/11/2023 [facility] DATE CREATED AUTHOR AUTHOR'S ORGANIZ ATION 12/27/2023 [facility] Source Comments (unrecognize d section and content) In the event this informatio n is protected by the Federal Confidentiality of Alcohol and Drug Abuse Patient Records regulations: The Federal rules restrict any use of the information to criminally investigate or prosecute any alcohol or drug abuse patient.[facility] the event this information is protected by the Federal Confidentiality of Alcohol and Drug Abuse Patient Records regulations: The Federal rules restrict any use of the information to criminally investigate or prosecute any alcohol or drug abuse patient.[facility] Center[facility] the event this information is protected by the Federal Confidentiality of Alcohol and Drug Abuse Patient Records regulations: The Federal rules restrict any use of the information to criminally investigate or prosecute any alcohol or drug abuse patient.[facility] Center[facility] the event this information is protected by the Federal Confidentiality of Alcohol and Drug Abuse Patient Records regulations: The Federal rules restrict any use of the information to criminally investigate or prosecute any alcohol or drug abuse patient.[facility] CenterIn the event this information is protected by the Federal Confidentiality of Alcohol and Drug Abuse Patient Records regulations: The Federal rules restrict any use of the information to criminally investigate or prosecute any alcohol or drug abuse patient.[facility] CenterIn the event this information is protected by the Federal Confidentiality of Alcohol and Drug Abuse Patient Records regulations: The Federal rules restrict any use of the information to criminally investigate or prosecute any alcohol or drug abuse patient.[facility] CenterIn the event this information is protected by the Federal Confidentiality of Alcohol and Drug Abuse Patient Records regulations: The Federal rules restrict any use of the information to criminally investigate or prosecute any alcohol or drug abuse patient.[facility] CenterIn the event this information is protected by the Federal Confidentiality of Alcohol and Drug Abuse Patient Records regulations: The Federal rules restrict any use of the information to criminally investigate or prosecute any alcohol or drug abuse patient.[facility] Center[facility] the event this information is protected by the Federal Confidentiality of Alcohol and Drug Abuse Patient Records regulations: The Federal rules restrict any use of the information to criminally investigate or prosecute any alcohol or drug abuse patient.[facility] CenterIn the event this information is protected by the Federal Confidentiality of Alcohol and Drug Abuse Patient Records regulations: The Federal rules restrict any use of the information to criminally investigate or prosecute any alcohol or drug abuse patient.[facility] CenterIn the event this information is protected by the Federal Confidentiality of Alcohol and Drug Abuse Patient Records regulations: The Federal rules restrict any use of the information to criminally investigate or prosecute any alcohol or drug abuse patient.[facility] CenterIn the event this information is protected by the Federal Confidentiality of Alcohol and Drug Abuse Patient Records regulations: The Federal rules restrict any use of the information to criminally investigate or prosecute any alcohol or drug abuse patient.[facility] CenterIn the event this information is protected by the Federal Confidentiality of Alcohol and Drug Abuse Patient Records regulations: The Federal rules restrict any use of the information to criminally investigate or prosecute any alcohol or drug abuse patient.[facility] CenterIn the event this information is protected by the Federal Confidentiality of Alcohol and Drug Abuse Patient Records regulations: The Federal rules restrict any use of the information to criminally investigate or prosecute any alcohol or drug abuse patient.[facility] CenterIn the event this information is protected by the Federal Confidentiality of Alcohol and Drug Abuse Patient Records regulations: The Federal rules restrict any use of the information to criminally investigate or prosecute any alcohol or drug abuse patient.[facility] CenterIn the event this information is protected by the Federal Confidentiality of Alcohol and Drug Abuse Patient Records regulations: The Federal rules restrict any use of the information to criminally investigate or prosecute any alcohol or drug abuse patient.[facility] CenterIn the event this information is protected by the Federal Confidentiality of Alcohol and Drug Abuse Patient Records regulations: The Federal rules restrict any use of the information to criminally investigate or prosecute any alcohol or drug abuse patient.[facility] CenterIn the event this information is protected by the Federal Confidentiality of Alcohol and Drug Abuse Patient Records regulations: The Federal rules restrict any use of the information to criminally investigate or prosecute any alcohol or drug abuse patient.[facility] CenterIn the event this information is protected by the Federal Confidentiality of Alcohol and Drug Abuse Patient Records regulations: The Federal rules restrict any use of the information to criminally investigate or prosecute any alcohol or drug abuse patient.[facility] CenterIn the event this information is protected by the Federal Confidentiality of Alcohol and Drug Abuse Patient Records regulations: The Federal rules restrict any use of the information to criminally investigate or prosecute any alcohol or drug abuse patient.[facility] CenterIn the event this information is protected by the Federal Confidentiality of Alcohol and Drug Abuse Patient Records regulations: The Federal rules restrict any use of the information to criminally investigate or prosecute any alcohol or drug abuse patient.[facility] CenterIn the event this information is protected by the Federal Confidentiality of Alcohol and Drug Abuse Patient Records regulations: The Federal rules restrict any use of the information to criminally investigate or prosecute any alcohol or drug abuse patient.[facility] CenterIn the event this information is protected by the Federal Confidentiality of Alcohol and Drug Abuse Patient Records regulations: The Federal rules restrict any use of the information to criminally investigate or prosecute any alcohol or drug abuse patient.[facility] CenterIn the event this information is protected by the Federal Confidentiality of Alcohol and Drug Abuse Patient Records regulations: The Federal rules restrict any use of the information to criminally investigate or prosecute any alcohol or drug abuse patient.[facility] CenterIn the event this information is protected by the Federal Confidentiality of Alcohol and Drug Abuse Patient Records regulations: The Federal rules restrict any use of the information to criminally investigate or prosecute any alcohol or drug abuse patient.[facility] CenterIn the event this information is protected by the Federal Confidentiality of Alcohol and Drug Abuse Patient Records regulations: The Federal rules restrict any use of the information to criminally investigate or prosecute any alcohol or drug abuse patient.[facility] CenterIn the event this information is protected by the Federal Confidentiality of Alcohol and Drug Abuse Patient Records regulations: The Federal rules restrict any use of the information to criminally investigate or prosecute any alcohol or drug abuse patient.[facility] CenterIn the event this information is protected by the Federal Confidentiality of Alcohol and Drug Abuse Patient Records regulations: The Federal rules restrict any use of the information to criminally investigate or prosecute any alcohol or drug abuse patient.[facility] Reason for Visit (unrecogniz ed section and content) Reason Comments Lung Cancer Reason Comments Orders Reason Comments Orders Reason Comments Lung Cancer Reason Comments Appointment PreOp Bronch Reason Comments Patient Update Appointment Reason Comments Lung Cancer Lung Mass Reason Comments Appointment Specialty Diagnoses / Procedures Referred By Contac t Referred To Contact ADMITTING Diagnoses Bronchiolar disease Procedures [facility] INCL FLUOR GDNCE DX W/CELL WASHG SPX BRONCHOSCOPY [facility] H[address] [address] Referral ID Status Reason Start Date Expiration Date Visits Re quested Visits Authorized [id number] 1 1 Reason Comments Appointment Reason Comments Patient Update Future Appointment Reason Comments Patient Update Reason Comments Cervical lymph node bx Reason Comments Biopsy Request Specialty Diagnoses / Procedures Referred By [facility] t Referred To Contact ADMITTING Diagnoses Malignant neoplasm of unspecified part of unspecified bronchus or lung (HCC) Procedures BX/EXC LYMPH NODE NEEDLE SUPERFICIAL BIOPSY OR EXCISION LYMPH NODES(S) NEEDLE SUPERFICIAL [facility] [address] [place] [address] Referral ID Status Reason Start Date Expiration Date Visits Re quested Visits Authorized [id number] 1 1 Reason Comments Appointment Confirmation Reason Comments Anesthesia Consult Reason Comments Patient Update Reason Comments New Patient Would like to discus s lymph node removal. Specialty Diagnoses / Procedures Referred By [facility] Referred To Contact Ent - Otolaryngology Diagnoses Non-small cell cancer of left lung (HCC) 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) Procedures CONSULT TO ENT OFFICE/OUTPATIENT NEW HIGH MDM 60 MINUTES Abdi Israel MD [address] [place] [address] [place] [address] Referral ID Status Reason Start Date Expiration Date V isits Requested Visits Authorized [id number] Closed PCP Requested Referral 09/24/2023 09/22/2024 1 1 Reason Comments Results Reason Comments Radiology NM Specialty Diagnoses / Procedures Referred By [facility] Referred To Contact MOLECULAR & FUNCTIONAL IMAGING Diagnoses Malignant neoplasm of unspecified part of unspecified bronchus or lung (HCC) Procedures NM PET/CT SKULL-THIGH SUBSEQUENT PET IMAGING CT ATTENUATION SKULL BASE MID-THIGH Abdi Israel MD [address] [place] [address] [place] [address] Molecular & Functional Imaging [address] [place] [address] Referral ID Status Reason Start Date Expiration Date V isits Requested Visits Authorized [id number] Closed Auto-Generate d Referral 08/21/2023 10/20/2023 1 1 Reason Comments Appointment Confirmation Care Teams (unrecognized sec tion and content) Team Status: Active Member Role Status Dates Adithya Kenyon MD Primary Care Provider Active Team Status: Inactive Member Role Status Dates Adithya Kenyon MD Primary Care Provide r, Referring Provider Active Start: September 29, 2023 End: September 29, 2023 Denver Rasmussen MD Attending Provider Active Start: September 29, 2023 End: September 29, 2023 Fisher Spear Relationship Specialty Start Date End Date Adithya Kenyon MD [address] [place] [address] PCP - General Family Practice 02/25/18 Fisher Spear Relationship Specialty Start Date End Date Adithya Kenyon MD [address] [place] [address] PCP - General Family Medicine 02/25/18 Fisher Spear Relationship Specialty Start Date End Date Adithya Kenyon MD [address] [place] [address] PCP - General Family Medicine 02/25/18 Fisher Spear Relationship Specialty Start Date End Date Adithya Kenyon MD [address] [place] [place] [address] PCP - General Family Medicine 02/25/18 Fisher Spear Relationship Specialty Start Date End Date Adithya Kenyon MD [address] [place] [place] [address] PCP - General Family Medicine 02/25/18 Fisher Spear Relationship Specialty Start Date End Date Adithya Kenyon MD [address] [place] [facility] [place] [address] PCP - General Family Medicine 02/25/18 Fisher Spear Relationship Specialty Start Date End Date Adithya Kenyon MD [address] [place] [facility] [place] [address] PCP - General Family Medicine 02/25/18 Fisher Spear Relationship Specialty Start Date End Date Adithya Kenyon MD [address] [place] [facility] [place] [address] PCP - General Family Medicine 02/25/18 Fisher Spear Relationship Specialty Start Date End Date Adithya Kenyon MD [address] [place] [address] PCP - General Family Medicine 02/25/18 Fisher Spear Relationship Specialty Start Date End Date Adithya Kenyon MD PCP - General Family Medicine 02/25/18 Fisher Spear Relationship Specialty Start Date End Date Adithya [...] May 14, 2023 End: May 17, 2023 Fisher Spear Relationship Specialty Start Date End Date Adithya Kenyon MD PCP - General Family Medicine 02/25/18 Fisher Spear Relationship Specialty Start Date End Date Adithya Kenyon MD PCP - General Family Medicine 02/25/18 Fisher Spear Relationship Specialty Start Date End Date Adithya Kenyon MD PCP - General Family Medicine 02/25/18 Fisher Spear Relationship Specialty Start Date End Date Adithya Kenyon MD PCP - General Family Medicine 02/25/18 Fisher Spear Relationship Specialty Start Date End Date Adithya Kenyon MD PCP - General Family Medicine 02/25/18 Fisher Spear Relationship Specialty Start Date End Date Adithya Kenyon MD PCP - General Family Medicine 02/25/18 Fisher Spear Relationship Specialty Start Date End Date Adithya Kenyon MD PCP - General Family [facility] 02/25/18 Team Status: Inactive Member Role Status Dates Adithya Kenyon MD Primary Care Provider Active Start: December 03, 2023 End: December 03, 2023 Denver Rasmussen MD Attending Provider Active Start: December 03, 2023 End: December 03, 2023 Fisher Spear Relationship Specialty Start Date End Date Adithya Kenyon MD PCP - General Family Medicine 02/25/18 Fisher Spear Relationship Specialty Start Date End Date Adithya Kenyon MD PCP - General Family Medicine 02/25/18 Team Status: Active Member Role Status Dates Adithya Kenyon MD Primary Care Provider Active Start: December 20, 2023 Rip Celestin DO Emergency Provider Active St art: December 20, 2023 Mg Vaughn MD Admit Provider, Attending Provider Active Start: December 20, 2023 Fisher Spear Relationship Specialty Start Date End Date Adithya Kenyon MD PCP - [facility] Medicine 02/25/18 Team Status: Inactive Member Role Status Dates Adithya Kenyon MD Primary Care Provider Active Start: December 21, 2023 End: December 24, 2023 Rip Celestin DO Emergency Provider Active St art: December 21, 2023 End: December 24, 2023 Mg Vaughn MD Admit Provider Active Start: December End: December 24, 2023 Cassandra Andersen MD Attending Provider Active Sta rt: December 21, 2023 End: December 24, 2023 Denver Rasmussen MD Other Provider Active Start: December 21, 2023 End: December 24, 2023 Team Status: Active Member Role Status Dates Adithya Kenyon MD Primary Care Provider Active Start: December 21, 2023 Rpi Celestin DO Emergency Provider Active St art: December 21, 2023 Mg Vaughn MD Admit Provider Active Start: December Cassandra Andersen MD Other Provider Active Start: December 21, 2023 Denver Rasmussen MD Attending Pr ovider, Other Provider Active Start: December 21, 2023 Fisher Spear Relationship Specialty Start Date End Date Adithya [...] (Given - Provid er: Khushboo Mcintyre MD, MD) Goals (unrecognized section and content) Goals may [...] BE BASED ON THE PRIMARY CLINICAL RECORDS. [facility] [employer] [facility]. provides no warranty or guarantee of the accuracy or completeness of information in this document.
== END 2023-12-28 20:32 | disposition home or self-care (01) ==
LOC: SLEEP 20:34
PROVIDERS: PCP Family Medicine; Visit Provider Internal Medicine Critical Care Medicine
DX: G47.33 Obstructive sleep apnea (adult) (pediatric) (principal)
CPT/HCPCS: 95811

== ENCOUNTER 2024-03-24 07:17 | Outpatient (RCR) | payer OTHER, SELFPAY ==
--- NOTE | 2023-10-06 14:11 | CR1_ITS ---
The [facility] Test Date: 2023-10-06 Pat Name: PHOEBE STANLEY Department: Room: - Gender: Female Keeper Head: : 1960 Requested By: ADITHYA KENYON Order Number: [id number] Reading MD: MATTIE LOPEZ Interpretive Statements Session Date: Electronically Signed On 10-06-2023 23:03:29 EDT by MATTIE LOPEZ
--- NOTE | 2023-10-13 15:46 | CR1_ITS ---
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
--- NOTE | 2023-11-10 11:00 | CR1_ITS ---
The [facility] Test Date: 2023-11-10 Pat Name: PHOEBE STANLEY Department: Room: - Gender: Female Library Manager: : 1960 Requested By: MATTIE LOPEZ Order Number: [id number] Shiv MD: MATTIE LOPEZ Interpretive Statements Session Date: Electronically Signed On 11-10-2023 23:11:08 EDT by MATTIE LOPEZ
--- NOTE | 2023-12-10 07:39 | CR1_ITS ---
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
--- NOTE | 2024-01-08 07:47 | CR1_ITS ---
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
--- NOTE | 2024-02-08 14:09 | CR1_ITS ---
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
--- NOTE | 2024-03-08 11:25 | CR1_ITS ---
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
--- NOTE | 2024-04-05 08:52 | CR1_ITS ---
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
== END 2024-04-12 12:05 | disposition home or self-care (01) ==
LOC: CR 07:17
PROVIDERS: PCP Family Medicine
DX: J44.9 Chronic obstructive pulmonary disease, unspecified (principal); J96.11 Chronic respiratory failure with hypoxia
CPT/HCPCS: 93798; 94625

== ENCOUNTER 2024-04-04 01:36 | Inpatient (IN) | payer OTHER, SELFPAY ==
[2024-04-04] VITALS (35 sets, daily range): BP systolic 93–144; BP diastolic 51–97; PULSE 102–157; TEMP 36.3–36.9; O2SAT 85–98; BMI 16.0; BMI 16.2
--- NOTE | 2024-04-04 01:43 | ECG_ITS ---
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
--- NOTE | 2024-04-04 01:43 | XR_ITS ---
The [address] [address] Patient Name: PHOEBE STANLEY MRN: [id number] date: 1960 Sex: F Assigned Patient Location: ER Current Patient Location: ER Accession/Order Number: [id number] Exam Date: 04/04/2024 02:25 Report Date: 04/04/2024 03:04 At the request of: CHEMO TRINH Procedure: XR chest 1V EXAM: XR chest 1V HISTORY: SOB COMPARISON: Chest radiograph dated 12/13/2023. TECHNIQUE: One view of the chest was obtained. FINDINGS: The cardiac silhouette is normal in size. Aortic atherosclerotic disease is seen. There are patchy opacities in the mid to lower right lung. There is no significant pneumothorax or left pleural effusion. There is a possible trace right pleural effusion. There are emphysematous changes in the lungs. No acute osseous abnormality is seen. There is stable left apical pleural-parenchymal thickening and suspected scarring with overlying surgical skin gladis. XR/XR chest 1V IMPRESSION: 1. Right basilar pneumonia with a possible trace right pleural effusion. 2. Emphysematous changes in the lungs with suspected postsurgical changes in the left lung apex. Electronically authenticated by: Garrick CEJA Date: 04/04/2024 03:04
--- NOTE | 2024-04-04 01:48 | ED_ITS ---
HPI HPI - General Adult General Chief complaint: Shortness of Breath/Dyspnea Stated complaint: SOB Time Seen by Provider: 04/04/24 01:37 Source: patient Mode of arrival: Wheelchair Limitations: no limitations History of Present Illness HPI narrative: 63-year-old female presents to the emergency department for shortness of breath. She has been feeling this way since about 8 PM, about 6 hours ago. She used her nebulizer at home but it did not help much. No fever or productive cough. She has COPD and is on home oxygen. No known ill contacts. Related Data Home Medications ?Medication ?Instructions ?Recorded ?Confirmed budesonide 0.5 mg/2 mL suspension 0.5 mg inhalation Q12H shortness 09/22/22 12/13/23 for nebulization of breath or wheezing ipratropium 0.5 mg-albuterol 3 mg 3 ml inhalation Q6H 09/22/22 12/13/23 (2.5 mg base)/3 mL nebulization soln montelukast 10 mg tablet 10 mg PO .hs 09/22/22 12/13/23 tiotropium 2.5 mcg-olodaterol 2.5 2 puff inhalation Q24H 09/22/22 12/13/23 mcg/actuation mist for inhalation (Stiolto Respimat) albuterol sulfate 90 mcg/actuation 2 inh inhalation QID PRN SOB 02/07/23 12/13/23 aerosol inhaler (ProAir HFA) theophylline 400 mg 400 mg PO DAILY 02/07/23 12/13/23 tablet,extended release 24 hr cetirizine 10 mg tablet 10 mg PO DAILY 12/13/23 12/13/23 prednisone 5 mg tablet 5 mg PO DAILY 12/13/23 12/13/23 Previous Rx's ?Medication ?Instructions ?Recorded ferrous sulfate 325 mg (65 mg 325 mg PO BID #60 tabs 05/09/23 iron) tablet amoxicillin 875 mg-potassium 1 tab PO Q12H #20 tabs 12/17/23 clavulanate 125 mg tablet prednisone 10 mg tablet 50 mg (5 x 10 mg) PO DAILY #47 tabs 12/17/23 Allergies Allergy/AdvReac Type Severity Reaction Status Date / Time No Known Drug Allergies Allergy Verified 04/04/24 01:41 Opioid HPI Opioid Management Most Recent Opioid Data: Last ORT Total Score 0 12/13/23 08:19 12/13/23 Last ORT Risk Category Low Risk 12/13/23 08:19 12/13/23 Review of Systems ROS Narrative A ten point review of systems is negative except as noted above. [facility] Medical History (Updated 04/04/24 @ 03:17 by Brayan Cahvez MD) COPD exacerbation ?J44.1 - Chronic obstructive pulmonary disease with (acute) exacerbation (ICD-10) Acute exacerbation of chronic obstructive pulmonary disease (COPD) ?J44.1 - Chronic obstructive pulmonary disease with (acute) exacerbation (ICD-10) Tachycardia ?R00.0 - Tachycardia, unspecified (ICD-10) Failure of outpatient treatment ?Z78.9 - Other specified health status (ICD-10) Tachypnea ?R06.82 - Tachypnea, not elsewhere classified (ICD-10) Asthma exacerbation in COPD ?J44.1 - Chronic obstructive pulmonary disease with (acute) exacerbation (ICD-10) ?J45.901 - Unspecified asthma with (acute) exacerbation (ICD-10) Community acquired pneumonia ?J18.9 - Pneumonia, unspecified organism (ICD-10) Acute infective exacerbation of chronic obstructive airway disease ?J44.1 - Chronic obstructive pulmonary disease with (acute) exacerbation (ICD-10) Acute bronchitis ?J20.9 - Acute bronchitis, unspecified (ICD-10) Acute and chronic respiratory failure with hypoxia ?J96.21 - Acute and chronic respiratory failure with hypoxia (ICD-10) Iron deficiency anemia ?D50.9 - Iron deficiency anemia, unspecified (ICD-10) Sinus tachycardia ?R00.0 - Tachycardia, unspecified (ICD-10) Acute exacerbation of chronic obstructive pulmonary disease ?J44.1 - Chronic obstructive pulmonary disease with (acute) exacerbation (ICD-10) Chronic obstructive pulmonary disease ?J44.9 - Chronic obstructive pulmonary disease, unspecified (ICD-10) Surgical History (Updated 12/13/23 @ 08:54 by Neha Ball) Hx of appendectomy ?Z90.49 - Acquired absence of other specified parts of digestive tract (ICD- 10) Family History (Updated 09/22/22 @ 21:17 by Veronika Almeida) Other Family history of myocardial infarction Social History Within the past year, how often did you have a drink containing alcohol: never Score interpretation: A score less than 3 is consistent with normal alcohol consumption. Smoking status: Former smoker Non-prescribed substance use: denies use Previous occupational history: disabled Highest level of school completed/degree received: GED or equivalent Are you now , , , , never or living with a partner: In a typical week, how many times do you talk on the telephone with family, friends, or neighbors: 3 or more times per week How often do you get together with friends or relatives: 3 or more times per week How often do you attend spiritism or rastafarian services: 1-3 times per year Do you belong to any clubs or organizations such as spiritism groups unions, fraternal or athletic groups, or school groups: no Total score: 2 Score interpretation: A score of greater than or equal to 2 indicates the lowest level of social isolation. Little interest or pleasure in doing things: not at all Feeling down, depressed, or hopeless: not at all Feel stressed/tense/nervous/anxious/difficulty sleeping: not at all Do you think of yourself as: straight/heterosexual Gender Identity: female Exam Narrative Exam Narrative: Nurses note and vital signs reviewed and patient is not hypoxic. General: The patient appears dyspneic but is not in acute respiratory distress. She is able to speak in short sentences. Skin: Warm, dry, no pallor noted. There is no rash noted. Head: Normocephalic, atraumatic Eye: Normal conjunctiva, no drainage Ears, Nose, Mouth, and Throat: oral mucosa is moist. Nares patent. Cardiovascular: Regular Rate and Rhythm, tachycardic Respiratory: Breath sounds are diminished bilaterally but are equal Back: non-tender GI: Normal bowel sounds, no tenderness to palpation, no masses appreciated. No rebound, guarding, or rigidity noted. Musculoskeletal: The patient has no evidence of calf tenderness, no pitting edema, symmetrical pulses noted bilaterally Neurological: A&O, normal speech Psychiatric: Cooperative Constitutional Vital Signs, click to edit/add: Last Vital Signs Temp 98.4 F 04/04/24 01:37 Pulse 144 H 04/04/24 02:04 Resp 22 H 04/04/24 02:04 BP 133/97 H 04/04/24 01:37 Pulse Ox 98 04/04/24 02:04 O2 Del Method Nasal Cannula 04/04/24 02:04 O2 Flow Rate 2 04/04/24 02:04 Course Vital Signs Vital signs: Vital Signs Temperature 98.4 F 04/04/24 01:37 Pulse Rate 155 H 04/04/24 01:37 Respiratory Rate 20 04/04/24 01:37 Blood Pressure 133/97 H 04/04/24 01:37 Pulse Oximetry 96 04/04/24 01:37 Oxygen Delivery Method Nasal Cannula 04/04/24 01:37 Oxygen Delivery Flow Rate 2 04/04/24 01:37 Temperature 98.4 F 04/04/24 01:37 Pulse Rate 144 H 04/04/24 02:04 Respiratory Rate 22 H 04/04/24 02:04 Blood Pressure 133/97 H 04/04/24 01:37 Pulse Oximetry 98 04/04/24 02:04 Oxygen Delivery Method Nasal Cannula 04/04/24 02:04 Oxygen Delivery Flow Rate 2 04/04/24 02:04 Medical Decision Making MDM Narrative Medical decision making narrative: The patient presented with shortness of breath and tachycardia. Pneumonia is identified on her x-ray and blood cultures were obtained and she was given IV antibiotics. She will be admitted. She was also given IV Solu-Medrol and aerosol treatment. Treatment diagnosis and disposition were discussed with the patient. Differential Diagnosis Differential Diagnosis: Pneumonia, COPD exacerbation, COVID, influenza Lab Data Lab results reviewed: Yes I reviewed the patient's lab results Labs: Lab Results 04/04/24 04/04/24 Range/Units 02:00 02:10 WBC 13.5 H (4.0-11.0) 10^3/uL RBC 4.72 (4.20-5.40) 10^6/uL Hgb 13.4 (12.0-16.0) g/dL Hct 41.7 (36.0-48.0) % MCV 88.3 (81.0-99.0) fL MCH 28.4 (26.7-34.0) pg MCHC 32.1 (29.9-35.2) g/dL RDW 12.7 (11.0-15.0) % Plt Count 193 (150-450) 10^3/uL MPV 9.6 (9.5-13.5) fL Seg Neuts % (Manual) 86.0 H (43.0-75.0) Lymphocytes % (Manual) 3.0 L (20.5-60.0) % Atypical Lymphs % (Man) 4.0 % Monocytes % (Manual) 3.0 (1.7-12.0) % Eosinophils % (Manual) 3.0 (0.9-7.0) % Basophils % (Manual) 1.0 (0.2-2.0) % Neutrophils # (Manual) 11.61 H (1.4-6.5) 10^3/uL Lymphocytes # (Manual) 0.40 L (1.20-3.80) 10^3/uL Abs Atypical Lymphs Man 0.54 Monocytes # (Manual) 0.40 (0.30-0.80) 10^3/uL Eosinophils # (Manual) 0.40 (0.00-0.70) 10^3/uL Basophils # (Manual) 0.13 H (0.00-0.10) 10^3/uL Hypochromasia 3+ Sodium 137 (136-145) mmol/L Potassium 3.9 (3.5-5.1) mmol/L Chloride 96 L (98-107) mmol/L Carbon Dioxide 33.9 H (21.0-32.0) mmol/L Anion Gap 11.0 BUN 11.0 (7.0-18.0) mg/dL Creatinine 0.64 (0.55-1.02) mg/dL Est GFR ( Amer) >60 (>=60 mL/min/1.73m^2) Est GFR (Non-Af Amer) >60 (>=60 mL/min/1.73m^2) BUN/Creatinine Ratio 17.2 Glucose 110 H (74-106) mg/dL Calcium 9.5 (8.5-10.1) mg/dL Troponin I High Sens 7.2 (4.0-51.3) pg/mL Influenza Type A Ag Negative Influenza Type B Ag Negative SARS-CoV-2 Ag (CV2AG) Negative (NEGATIVE) Imaging Data Chest x-ray: Radiologist's impression: ITS Impressions Chest X-Ray 04/04/24 01:43 IMPRESSION: 1. Right basilar pneumonia with a possible trace right pleural effusion. 2. Emphysematous changes in the lungs with suspected postsurgical changes in the left lung apex. Electronically authenticated by: Garrick CEJA Date: 04/04/2024 03:04 ECG Data Attestation: I personally reviewed and interpreted this ECG as follows: (EKG on my interpretation shows sinus tachycardia with a rate of 148) Critical Care Time Critical Care Time Critical Care Time: Yes Total Critical Care Time: 40 Attestation: Due to the high probability of sudden and clinically significant deterioration in the patient's condition he/she required the highest level of my preparedness to intervene urgently I provided critical care time including documentation time, medication orders and management, reevaluation, vital sign assessment, ordering and reviewing of lab tests, ordering and reviewing of x-ray studies, and admission orders. Aggregate critical care time is 40 minutes including only time during which I was engaged in work directly related to his/her care and did not include time spent treating other patients simultaneously. Discharge Plan Discharge Chief Complaint: Shortness of Breath/Dyspnea Clinical Impression: Pneumonia, Sinus tachycardia Patient Disposition: Admitted As Inpatient Time of Disposition Decision: 03:17 Condition: Fair
--- OUTSIDE RECORDS SUMMARY | 2024-04-04 01:56 | XMS_ITS | CCD ---
Author Organization [facility]iniSyn[facility] Care Team Providers Care Dried Fruit Washer Name Role Phone Adithya Kenyon Unavailable Unavailable JAYE HOUGH Unavailable Unavailable ADITHYA KENYON Unavailable Unavailable ABDOH, MAMOUN Unavailable Unavailable Adithya Kenyon MD Primary Care Provider [phone] Adithya Kenyon MD Primary Care Provider [phone] Adithya Kenyon MD Primary Care Provider [phone] JOSE CONDE Admitting [...] HOY ., DR HAJI Primary Care Unavailable [place], DR JULES Naranjo Consulting Unavailable HOY ., DR AHJI Admitting Unavailable HOY ., [...] ADITHYA M Primary Care Unavailable TEO CRAFT Referring Unavailable HOADITHYA Sharma Primary Care Unavailable ADITHYA KENYON M Primary Care Unavailable BRIE KAUR Referring Unavailable MD Adithya Kenyon Primary Care Provider [phone] DO Rip Celestin Emergency Provider MD Mg Vaughn Admit Provider MD Mg Vaughn Attending Provider MD Adithya Kenyon Primary Care Provider [phone] DO Rip Celestin Emergency Provider MD Mg Vaughn Admit Provider MD Cassandra Andersen Attending Provider MD Denver Rasmussen Other Provider TEO CRAFT Attending Unavailable LINDY, ABDI Referring Unavailable HOY, [...] ADITHYA M Primary Care Unavailable TEO CRAFT Admitting Unavailable TEO CRAFT Attending Unavailable HOY, ADITHYA M Primary Care Unavailable Adithya Kenyon MD Primary Care Provider [phone] Rip Celestin DO Emergency Provider [phone] Mg Vaughn MD Admit Provider Cassandra Andersen MD Attending Provider [phone] Denver Rasmussen MD Other Provider [phone] Denver Rasmussen MD Attending Provider Adithya Kenyon MD Primary Care Provider [phone] ANA DRIVER Attending Unavailable ANA DRIVER Attending Unavailable CARLA MONTAGUE Attending Unavailable ANA DRIVER Attending Unavailable CARLA MONTAGUE Attending Unavailable Adithya Kenyon Primary Care Unavailable Denver Rasmussen Attending UnavailDenver Elizabeth Admitting Unavaila Adithya Nuñez Primary Care Unavailable Cassandra Andersen Attending Unavailable Ally Warner Admitting Unavailable Adithya Kenyon Primary Care Unavailable Cassandra Andersen Attending Unavailable Denver Rasmussen Consulting UnavailMg Muller Admitting Unava ilable Allergies Allergy Classification Reported Allergen(s) Allergy Type Date of Onset Reaction(s) Facility (20 sources) levoFLOXacin; Translations: [LEVOFLOXACIN] Drug Allergy 03-02-2018 Unknown [facility] Other [place] Repository (2 sources) levoFLOXacin Drug Allergy [facility] Rep[facility] Medications Current Medications Medication Drug Class(es) Dates Sig (Normalized) Sig (Original) [id number] 200 actuat albuterol 0.09 mg/actuat metered dose inhaler (20 sources) beta2-Adrenergic Agonist Start: 09-29-2023 Albuterol Sulfate 90 mcg/actuation HFA aerosol inhaler Active 2 INH INHALATION Every 6 hours as needed for shortness of breath or wheezing September 28, 2023 11:00pm Start: 09-11-2023 albuterol (2.5 MG/3ML) 0.083% nebulizer solution Indications: Chronic obstructive pulmonary disease, unspecified COPD type (CMS/HCC) Take 3 mL (2.5 mg) by nebulization every 6 (six) hours if needed for wheezing 225 mL 5 09/11/2023 Active Start: 09-11-2023 take 2 puff(s) by in halation every six hours albuterol HFA (Ventolin HFA) 90 mcg/act inhaler Indications: Chronic obstructive pulmonary disease, unspecified COPD type (CMS/HCC) Inhale 2 puffs every 6 (six) hours 18 g 5 09/11/2023 Active albuterol (PROVE NTIL) 2.5 mg/0.5 mL nebulizar [...] / ipratropium bromide 0.167 mg/ml inhalation solution (16 sources) Anticholinergic, beta2-Adrenergic Agonist Start: take 1 dose by inhalation four times daily ipratropium-albuter ol (Duo-Neb) 0.5-2.5 mg/3 mL nebulizer solution Indications: Chronic obstructive pulmonary disease, unspecified COPD type (CMS/HCC) INHALE 1 VIAL VIA NEBULIZER 4 TIMES DAILY 180 mL 5 09/11/2023 Active Start: 05-13-2023 End: 01-04-2024 take 1 mL by inhalation every six hours Ipratropium-Albuterol 0.5 mg-3 mg(2.5 mg base)/3 mL solution for nebulization Active 3 ML INHALATION Q6H 360 January 04, 2024 9:05am Ipratropium-Albu terol 0.5-2.5 (3) MG/3ML DIRECTED Inhalation Active ALPRAZolam 0.25 mg oral tablet (3 sources) Benzodiazepine Start: 12-24-2023 take 1 tablet by mouth three times daily as needed for anxiety Alprazolam 0.25 mg Tablet Active 0.25 MG PO Three times daily as needed for Anxiety 14 December 23, 2023 11:00pm Bilevel Positive Airway Pressure (Bipap) (7 sources) Start: 12-03-2023 Bilevel Positi ve Airway Pressure (Bipap) Active 0 .Route December 03, 2023 9:28am As directed [facility] not using at this time Start: 09-29-2023 End: 12-03-2023 Bilevel Positive Airway Pres sure (Bipap) Discontinued 0 .ROUTE September 29, 2023 12:00am December 03, 2023 9:28am As directed [facility] Start: 09-29-2023 Bilevel Positi ve Airway Pressure (Bipap) Active 0 .ROUTE September 29, 2023 12:00am As directed [facility] Bilevel Positive Airway Pres sure (Bipap) unit (8 sources) Start: 02-23-2024 Bilevel Positi ve Airway Pressure (Bipap) unit Active 0 .Route February 23, 2024 2:42pm As directed with O2 at 2 liters DME [facility] Start: 02-23-2024 End: 02-23-2024 Bilevel Positive Airway Pres sure (Bipap) unit Discontinued 0 .Route February 23, 2024 12:00am February 23, 2024 2:42pm As directed Start: 12-03-2023 End: 02-23-2024 Bilevel Positive Airway Pres sure (Bipap) unit Discontinued 0 .Route December 03, 2023 8:28am February 23, 2024 2:42pm As directed [facility] not using at this time Start: 09-29-2023 End: 12-03-2023 Bilevel Positive Airway Pres sure (Bipap) unit Discontinued 0 .ROUTE September 28, 2023 11:00pm December 03, 2023 8:28am As directed [facility] budesonide 0.25 mg/ml inhalation suspension (20 sources) Corticosteroid Start: 10-06-2023 budesonide (Pu lmicort) 0.5 MG/2ML nebulizer solution Indications: Chronic obstructive pulmonary disease, unspecified COPD type (CMS/HCC) Take 2 mL (0.5 mg) by nebulization in the morning and 2 mL (0.5 mg) before bedtime. 120 mL 5 10/06/2023 Active Start: 05-13-2023 End: 11-11-2023 take 0.5 mg by inhalation every twelve hours Budesonide 0.5 mg/2 mL suspension for nebulization Active 0.5 MG INHALATION Q12H 120 November 11, 2023 10:19am DX J44.9 COPD Start: 04-27-2019 take 1 [...] (20 sources) Histamine-1 Receptor Antagonist Start: take 1 tablet by mouth in the morning cetirizine (ZyrTEC) 10 MG tablet Take 10 mg by mouth in the morning. 09/19/2022 Active Cetirizine 10 mg cap Take by mouth. Active take 1 tablet by pankaj th every twenty-four hours Cetirizine HCl 10 MG 1 tablet Orally Onc e a day Active Comment on above: Take by mouth. 12 hr dextromethorphan hydrobromide 30 mg / guaiFENesin 600 mg extended release oral tablet (5 sources) Uncompetitive T-nnakep-K-aspartate Receptor Antagonist, Sigma-1 Agonist Start: 06-16-19 take 1 tablet by mouth once Dextromethorphan -guaiFENesin ([facility] Mucus DM Extended Release) 30-600 MG tablet sustained-releas e 12 hour Take 1 tablet by mouth every 12 (twelve) hours if needed 06/16/2023 Active Start: 06-16-2023 take 1 tablet by pankaj th every twelve hours as needed dextromethorphan-guaiFENesin (MUCINEX DM ) 30-600 mg per tablet 1 tablet as needed Orally every 12 hrs 06/16/2023 Active doxycycline monohydrate 100 mg oral capsule (2 sources) Tetracycline-class Drug Start: 01-25-2024 doxycycline monohydrate (MONODOX) 100 mg capsule 1 capsule. 01/25/2024 Active ferrous sulfate 325 mg oral tablet (8 sources) Start: 05-09-2023 take 1 tablet by mouth in the morning ferrous sulfate 325 (65 Fe) MG tablet Take 1 tablet by mouth in the morning and 1 tablet before bedtime. 05/09/2023 Active fluticasone propionate 0.05 mg/actuat metered dose nasal spray (3 sources) Corticosteroid Start: 01-15-2023 take 2 spray(s) nasal route in the morning fluticasone (Flonase) 50 MCG/ACT nasal spray Administer 2 sprays into each nostril in the morning. 01/15/2023 Active 12 hr guaiFENesin 600 mg extended release oral tablet (10 sources) Start: 05-17-2023 take 1 tablet by mouth twice daily as needed for cough, then take 1 tablet by mouth every twelve hours as needed for cough Guaifenesin (Mucinex) 600 mg Tablet Extended Release 12hr Active 600 MG PO Twice daily as needed for cough May 17, 2023 12:00am Start: 08-15-2022 take 1 tablet by pankaj th every twelve hours in the morning Mucus Relief 600 MG 12 hr tablet Take 1,200 mg by mouth in the morning and 1,200 mg before bedtime. 08/15/2022 Active ipratropium/albuterol sulfat e (DUONEB INHALATION) (20 sources) ipratropium/albu terol sulfate (DUONEB INHALATION) Inhale as instructed. Active ipratropium/albu terol sulfate (DUONEB INHALATION) Inhale as instructed. 0 Active Comment on above: Inhale as instructed . iv contrast (will be provided with radiology test) (20 sources) Start: 02-16-2024 End: 02-17-2024 iv contrast (will be provided with radiology [...] CT contrast administration guidelines link. 1 Each 02/16/2024 02/17/2024 Active Start: 11-27-2023 End: 11-28-2023 iv contrast (will be provide d with [...] guidelines link. montelukast 10 mg oral tablet (20 sources) Leukotriene Receptor Antagonist Start: 10-29-19 19 take 1 tablet by mouth at bedtime montelukast (Singulair) 10 MG tablet Indications: Chronic obstructive pulmonary disease, unspecified COPD type (CMS/HCC) Take 1 tablet (10 mg) by mouth at bedtime 30 tablet 5 09/11/2023 Active Comment on above: Take 10 mg by mouth daily at bedtime. nystatin [id number] unt/ml oral suspension (10 sources) Polyene Antifungal Start: 05-17-19 take 580758 [IU] by mouth three times daily as needed Nystatin 100,000 unit/mL Suspension Active 651800 UNIT PO Three times daily as needed for White yeast in your mouth May 17, 2023 8:48am Nystatin 902133 units/mL 1 mL to each cheek Four [...] sources) oxygen as ordere d qhs Active Oxygen unit (4 sources) Start: 09-29-2023 Oxygen unit Ac tive 0 .Route September 29, 2023 12:31pm As directed [facility] Start: 09-29-2023 End: 09-29-2023 Oxygen unit Discontinued 0 . Route September 28, 2023 11:00pm September 29, 2023 12:32pm As directed Respiratory Therapy Supplies (CareTouch CPAP & BIPAP Hose) misc (3 sources) Start: 10-02-2022 Respiratory Therapy Supplies (CareTouch CPAP & BIPAP Hose) misc Mask and Tubing 10/02/2022 Active roflumilast 0.5 mg oral tablet (3 sources) Phosphodiesterase 4 Inhibitor Start: 09-11-2023 take 1 tablet by mouth once daily Roflumilast (Daliresp) 500 MCG tablet Indications: Chronic obstructive pulmonary disease, unspecified COPD type (CMS/HCC) Take 500 mcg by mouth Daily 30 tablet 5 09/11/2023 Active sodium chloride 30 mg/ml inhalation solution (12 sources) Start: 02-09-2024 End: 02-18-2024 Sodium Chloride 3 % solution for nebulization Discontinued ML INHALATION February 08, 2024 11:00pm February 18, 2024 10:11am Start: 01-06-2022 End: 02-22-2024 sodium chloride 3 % nebulize r solution Take by nebulization if needed. 01/06/2022 Active Sodium Chloride 0.9 % as directed Inhalation Three times a day Active Completed/Discontinued Medications Medication Drug Class(es) Dates Sig (Normalized) Sig (Original) amoxicillin 875 mg / clavulanate 125 mg oral tablet (4 sources) Penicillin-class Antibacterial Start: 12-20-2023 End: 12-24-2023 take 1 tablet by mouth twice daily Amoxicillin-Pot Clavulanate 875-125 mg tablet Discontinued 1 TAB PO Twice daily December 19, 2023 11:00pm December 24, 2023 7:43am Budesonide / formoterol (1 source) Corticosteroid, beta2-Adrenergic Agonist End: 07-01-2021 take 2 puff(s) by inhalation twice daily budesonide-formote rol (SYMBICORT) 160-4.5 mcg/actuation inhaler Inhale 2 Puffs [...] on above: Take 2 tablets by mo [facility] twice daily as needed. levoFLOXacin 500 mg oral tablet (15 sources) Quinolone Antimicrobial Start: 05-17-2023 End: 09-29-2023 take 1 tablet by mouth once daily Levofloxacin 500 mg tablet Discontinued 500 MG PO Daily 5 5 May 17, 2023 12:00am September 29, 2023 12:20pm Start: 05-13-2023 End: 05-17-2023 take 1 tablet by mouth every twenty-four hours Levofloxacin 750 mg tablet Discontinued 750 MG PO Q24H May 13, 2023 12:00am May 17, 2023 8:52am Tiotropium-Olodaterol (20 sources) Anticholinergic, beta2-Adrenergic Agonist Start: 09-29-2023 End: 09-29-2023 Tiotropium-Olodaterol (Stiolto Respimat) 2.5-2.5 mcg/actuation mist Discontinued 2 INH INHALATION Daily September 29, 2023 12:21pm September 29, 2023 1:26pm Start: 09-29-2023 End: 09-29-2023 Tiotropium-Olodaterol (Stiol to Respimat) 2.5-2.5 mcg/actuation mist Discontinued 2 INH INHALATION Daily September 29, 2023 1:21pm September 29, 2023 2:26pm Start: 09-29-2023 Tiotropium-Olo daterol (Stiolto Respimat) 2.5-2.5 mcg/actuation mist Active 2 INH INHALATION Daily September 29, 2023 1:21pm Start: 09-11-2023 End: 03-01-2024 tiotropium-olodaterol (Stiol to Respimat) 2.5-2.5 MCG/ACT aerosol solution inhaler Indications: Chronic obstructive pulmonary disease, unspecified COPD type ([facility]) Inhale 2 Inhalation 1 (one) time each day at the same time 4 g 5 09/11/2023 03/01/2024 Discontinued (Therapy completed) Start: 05-13-2023 End: 09-29-2023 Tiotropium-Olodaterol (Stiol to Respimat) 2.5-2.5 mcg/actuation mist Discontinued 2 PUFF INHALATION Daily May 13, 2023 12:00am September 29, 2023 12:24pm Start: 05-13-2023 End: 09-29-2023 Tiotropium-Olodaterol (Stiol to Respimat) 2.5-2.5 mcg/actuation mist Discontinued 2 PUFF INHALATION Daily May 13, 2023 1:00am September 29, 2023 1:24pm Start: 05-13-2023 Tiotropium-Olo daterol (Stiolto Respimat) 2.5-2.5 mcg/actuation mist Active 2 PUFF INHALATION Daily May 13, 2023 12:00am Start: 11-01-2018 End: 11-17-2023 STIOLTO RESPIMAT 2.5-2.5 mcg /actuation mist TAKE 2 PUFFS BY MOUTH EVERY DAY 12 11/01/2018 11/17/2023 Discontinued Stiolto Respimat 2.5-2.5 MCG/ACT 2 puffs Inhalation Once a day Active Comment on above: TAKE 2 PUFFS BY MOUT H EVERY DAY predniSONE 10 mg oral tablet (20 sources) Start: 12-24-2023 End: 02-23-2024 take 1 tablet by mouth three times daily Prednisone 10 mg tablet Discontinued 10 MG PO As Directed December 23, 2023 11:00pm February 23, 2024 2:35pm Take 1 tablet 3 times a day for 4 days then 1 tablet twice a day for 4 days then 1 tablet daily for 4 days then resume your daily prednisone 5 mg daily. Start: 12-03-2023 End: 02-23-2024 take 1 tablet by mouth once daily Prednisone 5 mg tablet Discontinued 5 MG PO Daily December 02, 2023 11:00pm February 23, 2024 2:35pm Start: 11-16-2023 End: 12-03-2023 take 4 tablets by mouth once daily, then take 2 tablets by mouth once daily, then take 1 tablet by mouth once daily, then take 0.5 tablet by mouth once daily Prednisone 10 mg tablet Discontinued 10 MG PO Daily November 15, 2023 11:00pm December 03, 2023 8:27am Take 4 tabs daily x 3 days, [...] day for 19 days 10/21/2023 Active Start: 09-18-2023 End: 03-01-2024 take 1 tablet by mouth once daily predniSONE (Deltasone) 10 MG tablet TAKE 1 TABLET BY MOUTH EVERY DAY FOR 30 DAYS 09/18/2023 03/01/2024 Discontinued (Therapy completed) Start: 05-17-2023 End: 09-29-2023 take 1 tablet by mouth three times daily, then take 1 tablet by mouth twice daily, then take 1 tablet by mouth once daily Prednisone 10 mg tablet Discontinued 10 MG PO As Directed May 17, 2023 8:52am September 29, 2023 12:21pm Take 1 tablet 3 times a day for 5 days then 1 tablet twice a day for 5 days then 1 tablet daily Start: 05-13-2023 End: 05-17-2023 take 4 tablets by mouth once daily Prednisone 10 mg tablet Discontinued 40 MG PO Daily May 13, 2023 12:00am May 17, 2023 8:52am Start: 05-13-2023 End: 05-17-2023 take 40 mg by mouth once daily Prednisone Discontinued 40 MG PO Daily May 13, 2023 1:00am May 17, 2023 9:52am prednisone 10 mg as directed Orally as directed Active theophylline 400 mg extended release oral tablet (20 sources) Methylxanthine Start: 02-09-2024 End: 02-23-2024 take 1 tablet by mouth once daily Theophylline 400 mg tablet extended release 24 hr Discontinued 400 MG PO Daily February 08, 2024 11:00pm February 23, 2024 2:34pm Start: 09-11-2023 take 1 capsule by mo uth once daily theophylline ER (Mi-24) 200 MG 24 hr capsule Indications: Chronic obstructive pulmonary disease, unspecified COPD type (CMS/HCC) Take 1 capsule (200 mg) by mouth 1 (one) time each day at the same time 30 capsule 5 09/11/2023 Active Start: 05-13-2023 End: 09-29-2023 Theophylline 400 mg tablet e xtended release 24 hr Discontinued 300 MG PO Q24H May 13, 2023 12:00am September 29, 2023 12:21pm Start: 05-13-2023 End: 09-29-2023 take 300 mg [...] ANTIBIOTIC AGENT] Onset: 09-09-2022 Episodic Anxiety disorders (4 sources) Anxiety; Translations: [Anxiety disorder, unspecified] Onset: [...] and lung] Onset: 09-09-2022 Episodic Cardiac dysrhythmias (10 sources) Tachycardia; Translations: [Tachycardia, unspecified] 05-13-2023 Episodic [...] Neoplasms of unspecified nature or uncertain behavior (6 sources) Neoplasm of lung ; Translations: [Neoplasm of unspecified behavior of respiratory system] Episodic Nutritional deficiencies (3 sources) Deficiency of macronutrients; Translations: [Unspecified severe protein-calorie malnutrition] 12-24-2023 Chronic Other aftercare (1 source) oil heaterman (current) use of systemic steroids; Translations: [COMPANION USE OF SYSTEMIC STEROIDS] Onset: 09-09-2022 Episodic Other aftercare (1 source) oil heaterman (current) use of inhaled steroids; Translations: [NURSING HOME USE OF INHALED STEROIDS] Onset: 09-09-2022 Episodic Other aftercare (1 source) Other longterm (current) drug therapy; Translations: [OTH NURSING HOME CURRENT DRUG THERAPY] Onset: 09-09-2022 Episodic Other ear and sense organ disorders (2 sources) Impacted cerumen in right ear; Translations: [Impacted cerumen, right ear] 03-01-2024 Episodic Other injuries and conditions due to external causes (5 sources) Foreign body in left ear; Translations: [Foreign body in left ear, initial encounter] Onset: 08-17-2023 08-17-2023 Episodic Other lower respiratory disease (1 source) Solitary pulmonary nodule; Translations: [Solitary pulmonary nodule] Onset: 03-02-2018 Episodic Other lower respiratory disease (3 sources) Lung mass; Translations: [Other nonspecific abnormal [...] Translations: [Shortness of breath] 05-14-2023 Episodic Other lower respiratory disease (2 sources) Cavitation of lung; Translations: [Other disorders of lung] 02-22-2024 Episodic Other lower respiratory disease (3 sources) Other disorders of lung; Translations: [Other diseases of lung, not elsewhere classified] Onset: 02-26-2024 02-23-2024 Episodic Other upper respiratory disease (1 source) Bronchiolar disease; Translations: [Other diseases of bronchus, not elsewhere classified] Episodic Pneumonia (except that caused by tuberculosis or sexually transmitted disease) (15 sources) Pneumonia; Translations: [Pneumonia, unspecified organism] Onset: 05-14-2023 05-13-2023 Episodic Residual codes; unclassified (5 sources) Obstructive sleep apnea syndrome; Translations: [Obstructive sleep apnea (adult) (pediatric)] 12-03-2023 Chronic Residual codes; unclassified (10 sources) Obstructive sleep apnea (adult) (pediatric); Translations: [Obstructive sleep apnea (adult)(pediatric)] Onset: 12-21-2023 12-03-2023 Chronic Residual codes; unclassified (5 sources) Past history of procedure; Translations: [Other specified postprocedural states] 12-03-2023 Episodic Comment on above: left shoulder CC on 11/18/23 Respiratory failure; insufficiency; arrest (adult) (20 sources) Chronic respiratory failure with hypoxia; Translations: [Chronic hypoxemic respiratory failure] Onset: 03-02-2018 Resolved: 11-30-2023 03-02-2018 Chronic Comment on above: BiPAP with O2 2/m bl eed into Secondary malignancies (9 sources) Secondary malignant neoplasm of lymph nodes [...] Classification Problem Date Documented Da te Episodic/Chronic Lymphadenitis (3 sources) Generalized enlarged lymph nodes; Translations: [Lymphadenopathy] Onset: 11-17-2023 10-27-2023 Episodic Nonspecific chest pain (1 source) Chest pain, unspecified; Translations: [Chest pain, unspecified] Onset: 03-24-2017 Episodic Nutritional deficiencies (20 sources) Cachexia; Translations: [Cachexia] Onset: 05-14-2023 05-14-2023 Episodic Other ear and sense organ disorders (3 sources) 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; 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] Onset: 08-17-2023 08-17-2023 Episodic Other lower respiratory disease (20 sources) Solitary nodule of lung; Translations: [Solitary pulmonary nodule] Onset: 03-02-2018 03-02-2018 Episodic Other lower respiratory disease (3 sources) Imaging of lung abnormal ; Translations: [Other nonspecific abnormal finding of lung field] Onset: 10-13-2022 10-13-2022 Episodic Other lower respiratory disease (3 sources) Lung field abnormal; Translations: [Other nonspecific abnormal finding of lung field] Onset: 10-21-2022 10-21-2022 Episodic Other screening for suspected conditions (not mental disorders or infectious disease) (9 sources) Gross pathology - abnormality; Translations: [Abnormal histological findings in specimens from other organs, systems and tissues] Onset: 05-23-2022 Episodic Other upper respiratory disease (1 source) Nasal congestion; Translations: [NASAL CONGESTION] Onset: 04-11-2022 Episodic Respiratory failure; insufficiency; arrest (adult) (13 sources) Acute respiratory failure with hypoxia; Translations: [Acute respiratory failure] Onset: 09-09-2022 05-14-2023 Episodic Screening and history of mental health and substance abuse codes (11 sources) Personal history of nicotine dependence; Translations: [Ex-smoker] Onset: 09-09-2022 11-17-2023 Episodic Unclassified (1 source) CONTACT W/AND (SUSP) EXPOS COVID-19; Translations: [CONTACT W/AND (SUSP) EXPOS COVID-19] Onset: 04-08-2022 Results Test Name Value Interpretation Reference Range Facility X-ray reportOrdered By: Reji Byrd on 02-26-2024 Study report [facility] [address] [address] XRay Report Signed Patient: Cinthia Guerrero MR#: [id number] : 1960 Acct:[id number] Age/Sex: 63 / F ADM Date: 4 Loc: XD Room: Type: [facility] CLI Attending Dr: Denver Rasmussen MD Copies to: Denver Rasmussen MD~ Ordering Provider: Denver Rasmussen MD Date of Service: 02/26/24 XR/XR chest 2V*: J98.4 - Other disorders of lung Plain film chest 2 view HISTORY: Follow-up cavitary lung disease COMPARISON: 12/20/23 FINDINGS: SUPPORT DEVICES: None POSTSURGICAL CHANGES: None HEART: Within normal limits PULMONARY FREDDY: Within normal limits MEDIASTINUM: Unremarkable LUNGS AND PLEURA: No acute lung process, pleural effusion or pneumothorax identified. Continued hyperinflation of lungs. Similar cavitary changes in theLEFT lung apex. BONY STRUCTURES: Intact ADDITIONAL FINDINGS None XR/XR chest 2V* IMPRESSION: Stable findings Impression dictated by: Wong Byrd M.D.02/26/2024 6:00 PM Dictation Location: [place] [address] Transcribed By: [facility] 02/26/24 1800 Dictated By: Wong Byrd DO 02/26/24 1755 Signed By: 02/26/24 1800 [facility] XR chest 2V*on 02-26-2024 XR chest 2V* [facility] [address] [address] XRay Report Signed Patient: Cinthia Guerrero MR#: [id number] : 1960 Acct:[id number] Age/Sex: 63 / F ADM Date: 02/26/24 Loc: XD Room: Type: [facility] CLI Attending Dr: Denver Rasmussen MD Copies to: Denver Rasmussen MD Ordering Provider: Denver Rasmussen MD Date of Service: 02/26/24 XR/XR chest 2V*: J98.4 - Other disorders of lung Plain film chest 2 view HISTORY: Follow-up cavitary lung disease COMPARISON: 12/20/23 FINDINGS: SUPPORT DEVICES: None POSTSURGICAL CHANGES: None HEART: Within normal limits PULMONARY FREDDY: Within normal limits MEDIASTINUM: Unremarkable LUNGS AND PLEURA: No acute lung process, pleural effusion or pneumothorax identified. Continued hyperinflation of lungs. Similar cavitary changes in the LEFT lung apex. BONY STRUCTURES: Intact ADDITIONAL FINDINGS None XR/XR chest 2V* IMPRESSION: Stable findings Impression dictated by: Wong Byrd M.D.02/26/2024 6:00 PM Dictation Location: [place] [address] Transcribed By: [facility] [facility] 02/26/24 1800 Dictated By: Wong Byrd DO 02/26/24 1755 Signed By: 02/26/24 1800 Normal [facility] [place] 02-17-2024 CNPN Telephone (RADTSA) CINTHIA GUERRERO ([id number]) 1960 F Date Time Provider Department 02/17/24 ABDI ISRAEL During your visit today, we recorded the following information about you: Julisa Pressley LPN 02/17/2024 8:58 AM Signed Emily: Please send reports and images to Dr. Rasmussen as requested below per Dr. Israel. Thanks LUCIE Dolan Saju, MD sent to Julisa Pressley LPN; Silvia Jha RN Please send recent imaging from the past two years (images and report) as well as my notes to Dr. Block as well as the procedure note and pathology results from her bronch/biopsy from 04/2022 (including any cultures/stains). Thanks! Kendal Anguiano 02/17/2024 10:18 AM Signed Records faxed to Dr. Rasmussen. Requested images be pushed to [facility]. Allergies As of Date: 02/17/2024 (No Known Allergies) Date Reviewed: 01/29/2024 Reviewed by: Diane Gillette MA - Fully Assessed Prescriptions as of 02/17/2024 - iv contrast (will be provided with [...] the CT contrast administration guidelines link. - ferrous sulfate 325 mg (65 mg iron) tablet Twice daily - doxycycline monohydrate (MONODOX) 100 mg capsule 1 capsule. - dextromethorphan-guaiF ENesin (MUCINEX DM) 30-600 mg per tablet 1 tablet as needed Orally every 12 hrs - predniSONE 10 mg tablet pack 5 [...] once daily. 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 Guerrero is a 63-year-old woman with severe COPD, who is diagnosed with Stage IA3, [id number], non-small cell lung cancer arising from a [...] 05/14/2018 (5000 cGy in 5 fractions). INTERVAL HISTORY: Ms. Guerrero returns to clinic today for routine follow-up approximately five and a half years after the completion of her radiation treatments and eight months since her last visit on 05/25/2023. In the interim, she had PET/CT on 09/01/2023 showing hypermetabolic activity in the left lower supraclavicular lymph nodes concerning for metastatic disease. She underwent excisional biopsy by Dr. Craft on 11/18/2023 with pathology returning with no evidence of malignancy. She also reports multiple interval hospitalizations for COPD exacerbation requiring steroids and antibiotics the last 1 over a month ago. He did notice worsening of a cough about a week and a half ago which improved with antibiotics. She continues on supplemental oxygen via nasal cannula [id number] at 2 L/min and continues on Pulmicort and DuoNeb under the care of Dr. Rasmussen. She does note some rib pain which she feels is related to her cough but otherwise no chest pain or hemoptysis or difficulty swallowing or skin irritation in the treatment area. She does note fatigue which is stable with waxing and waning appetite with stable hydration and weight. She had repeat CT of the chest earlier this month on 01/18/2024 with progression of left suprahilar consolidative opacity to be related to posttreatment change with no definite mass concerning/bulky lymphadenopathy. Was interval development of a cavitary lesion in the left upper lobe of the lung. She otherwise denies any recent fevers, chills, headaches, difficulty with speech/swallowing, palpitations, abdominal pain, nausea, vomiting, change in bowel/urinary habits, difficulty with gait/balance, recent falls, etc. The remainder of the review of systems was performed and was otherwise noncontributory. ALLERGIES ALLERGIES No Known Allergies MEDICATIONS: Current Outpatient Medications: ferrous sulfate 325 mg (65 mg iron) tablet doxycycline monohydrate (MONODOX) 100 mg capsule dextromethorphan-guaiF ENesin (MUCINEX DM) 30-600 mg per tablet budesonide (PULMICORT) 1 mg/2 mL nebulizer solution montelukast (SINGULAIR) 10 mg tablet ipratropium/albuterol sulfate (DUONEB INHALATION) albuterol (PROVENTIL) 2.5 mg/0.5 mL nebulizar solution PEDIATRIC ASTHMA Cetirizine 10 mg cap predniSONE 10 mg tablet pack iv contrast (will be provided with radiology test) Theophylline SR (MI-24) 400 mg 24 hr capsule PHYSICAL EXAM: GENERAL: thin middle-aged woman sitting in chair in no acute distress on supplemental oxygen via nasal cannula. VITALS: BP 125/78 Pulse 112 Temp 97.7 Resp 16 SpO2 93[2 liters]% KPS: 70 HEENT: NC/AT, anicteric sclera HEART: S1S2 LUNGS: non-labored breathing ABDOMEN: soft MUSCULOSKELETAL: no peripheral edema, moves all extremities. NEURO: no focal deficit; AANDO X3. PATHOLOGIC DATA: 11/18/2023 FINAL DIAGNOSIS Lymph nodes, left posterior supraclavicular and left supraclavicular external jugular, excisional biopsies (A-B): - Benign lymph nodes with follicular hyperplasia. - GMS stains negative for microorganisms. - No evidence of malignancy. - See comment. Diagnosis Comment The morphologic findings described below show benign lymph nodes with follicular hyperplasia. Granulomatous diseases not identified. GMS stains are negative for microorganisms. There is no evidence of a lymphoproliferative disorder, metastatic carcinoma or other malignancy. RADIOLOGIC DATA: PET/CT (09/01/2023) IMPRESSION: HEAD/NECK: * Few hypermetabolic left lower cervical/supraclavicul ar lymph nodes suspicious for metastases. CHEST: * Left apical left suprahilar region consolidation/opacity with low level mild activity likely posttreatment change. Additional a more focal hypermetabolic nodular opacity raising suspicious for neoplasm. ABDOMEN/PELVIS: * Hypermet (more content not included)... Normal [facility] CT CHEST W IVCONon 4 CT CHEST W IVCON * * *Final Report* * * DATE OF EXAM: Jan 18 2024 11:33AM [facility] 0539 - CT CHEST W IVCON / PROCEDURE REASON: Malignant neoplasm of unspecified part of unspecified bronchus or lung (HCC) * * * * Physician Interpretation * * * * RESULT: EXAMINATION: CHEST CT WITH CONTRAST CLINICAL HISTORY: History of lung cancer. Technique: Spiral CT acquisition of the chest from the thoracic inlet to the upper abdomen following IV contrast. MQ: CTCW_6 Contrast: 50 mL Omnipaque [address] Radiation dose: Integrated Dose-length product (DLP) for this visit = 116 mGy*cm CT Dose Reduction Employed: Automated exposure control (AEC) Comparison: CT performed 05/06/2022. PET/CT performed 09/01/2023 RESULT: Limitations: None. Lines, tubes, and devices: None. Lung parenchyma and airways: There is severe centrilobular/panlobul ar emphysema. There is stable collapse of the right middle lobe. Dense left suprahilar consolidative opacity is noted, increased in size from prior study, now measuring up to 4.5 x 3.6 cm, previously 4.3 x 2.4 cm. Previously described nodular opacity seen on prior PET/CT is not discretely visualized on the current study. There is a new fluid-filled cavitary lesion in the left apex (3:22) measuring 2.2 x 1.5 cm. There is retraction of the adjacent lung parenchyma resulting in bullae formation in the left apex. Pleural space: No pleural effusion. No pleural thickening. Lower neck, lymph nodes, and mediastinum: The imaged thyroid gland is normal. No lymphadenopathy in the supraclavicular, axillary, mediastinal, or hilar regions. Heart, pericardium, and thoracic vessels: The thoracic aorta and main pulmonary artery are normal in caliber. The cardiac chambers are normal in size. Coronary artery atherosclerotic calcification is noted. No pericardial effusion or thickening. Bones and soft tissues: No destructive bone lesion. Chest wall is unremarkable. Upper abdomen: A cyst is noted in the upper pole of the right kidney. The upper abdomen is otherwise unremarkable. Localizer images: No additional findings. IMPRESSION: 1. Left suprahilar consolidative opacity, progressed from prior study. Findings likely relate to progression of posttreatment change. No focal mass is seen. 2. New fluid-filled cavitary lesion in the left upper lobe which may represent necrosis. 3. No evidence of bulky intrathoracic lymphadenopathy. Transcribe Date/Time: Jan 18 2024 6:26P Dictated by: VAZQUEZ CAMACHO MD This examination was interpreted and the report reviewed and electronically signed by: VAZQUEZ CAMACHO MD on Jan 18 2024 6:43PM EST Thank you for allowing us to participate in the care of your patient. Should there be any questions regarding this interpretation, please call [phone]. If you are unable to reach us at the number above, please feel free to contact [facility] eRadiology at [phone]. [id number] Normal [facility] CT Chest W contrast [place] IMPRESSION: 1. Left suprahilar consolidative opacity, progressed from prior study. Findings likely relate to progression of posttreatment change. No focal mass is seen. 2. New fluid-filled cavitary lesion in the left upper lobe which may represent necrosis. 3. No evidence of bulky intrathoracic lymphadenopathy. Transcribe Date/Time: Jan 18 2024 6:26P Dictated by: VAZQUEZ CAMACHO MD This examination was interpreted and the report reviewed and electronically signed by: VAZQUEZ CAMACHO MD on Jan 18 2024 6:43PM EST Thank you for allowing us to participate in the care of your patient. Should there be any questions regarding this interpretation, please call [phone]. If you are unable to reach us at the number above, please feel free to contact [facility] eRadiology at [phone]. DIVISION OF RADIOLOGY * * *Final Report* * * DATE OF EXAM: Jan 18 2024 11:33AM [facility] 0539 - CT CHEST W IVCON / PROCEDURE REASON: Malignant neoplasm of unspecified part of unspecified bronchus or lung (HCC) * * * * Physician Interpretation * * * * RESULT: EXAMINATION: CHEST CT WITH CONTRAST CLINICAL HISTORY: History of lung cancer. Technique: Spiral CT acquisition of the chest from the thoracic inlet to the upper abdomen following IV contrast. MQ: CTCW_6 Contrast: 50 mL Omnipaque [address] Radiation dose: Integrated Dose-length product (DLP) for this visit = 116 mGy*cm CT Dose Reduction Employed: Automated exposure control (AEC) Comparison: CT performed 05/06/2022. PET/CT performed 09/01/2023 RESULT: Limitations: None. Lines, tubes, and devices: None. Lung parenchyma and airways: There is severe centrilobular/panlobul ar emphysema. There is stable collapse of the right middle lobe. Dense left suprahilar consolidative opacity is noted, increased in size from prior study, now measuring up to 4.5 x 3.6 cm, previously 4.3 x 2.4 cm. Previously described nodular opacity seen on prior PET/CT is not discretely visualized on the current study. There is a new fluid-filled cavitary lesion in the left apex (3:22) measuring 2.2 x 1.5 cm. There is retraction of the adjacent lung parenchyma resulting in bullae formation in the left apex. Pleural space: No pleural effusion. No pleural thickening. Lower neck, lymph nodes, and mediastinum: The imaged thyroid gland is normal. No lymphadenopathy in the supraclavicular, axillary, mediastinal, or hilar regions. Heart, pericardium, and thoracic vessels: The thoracic aorta and main pulmonary artery are normal in caliber. The cardiac chambers are normal in size. Coronary artery atherosclerotic calcification is noted. No pericardial effusion or thickening. Bones and soft tissues: No destructive bone lesion. Chest wall is unremarkable. Upper abdomen: A cyst is noted in the upper pole of the right kidney. The upper abdomen is otherwise unremarkable. Localizer images: No additional findings. DIVISION OF RADIOLOGY Provider, [facility] - 01/18/2024 * * *Final Report* * * DATE OF EXAM: Jan 18 2024 11:33AM [facility] 0539 - CT CHEST W IVCON / PROCEDURE REASON: Malignant neoplasm of unspecified part of unspecified bronchus or lung (HCC) * * * * Physician Interpretation * * * * RESULT: EXAMINATION: CHEST CT WITH CONTRAST CLINICAL HISTORY: History of lung cancer. Technique: Spiral CT acquisition of the chest from the thoracic inlet to the upper abdomen following IV contrast. MQ: CTCW_6 Contrast: 50 mL Omnipaque [address] Radiation dose: Integrated Dose-length product (DLP) for this visit = 116 mGy*cm CT Dose Reduction Employed: Automated exposure control (AEC) Comparison: CT performed 05/06/2022. PET/CT performed 09/01/2023 RESULT: Limitations: None. Lines, tubes, and devices: None. Lung parenchyma and airways: There is severe centrilobular/panlobul ar emphysema. There is stable collapse of the right middle lobe. Dense left suprahilar consolidative opacity is noted, increased in size from prior study, now measuring up to 4.5 x 3.6 cm, previously 4.3 x 2.4 cm. Previously described nodular opacity seen on prior PET/CT is not discretely visualized on the current study. There is a new fluid-filled cavitary lesion in the left apex (3:22) measuring 2.2 x 1.5 cm. There is retraction of the adjacent lung parenchyma resulting in bullae formation in the left apex. Pleural space: No pleural effusion. No pleural thickening. Lower neck, lymph nodes, and mediastinum: The imaged thyroid gland is normal. No lymphadenopathy in the supraclavicular, axillary, mediastinal, or hilar regions. Heart, pericardium, and thoracic vessels: The thoracic aorta and main pulmonary artery are normal in caliber. The cardiac chambers are normal in size. Coronary artery atherosclerotic calcification is noted. No pericardial effusion or thickening. Bones and soft tissues: No destructive bone lesion. Chest wall is unremarkable. Upper abdomen: A cyst is noted in the upper pole of the right kidney. The upper abdomen is otherwise unremarkable. Localizer images: No additional findings. IMPRESSION IMPRESSION: 1. Left suprahilar consolidative opacity, progressed from prior study. Findings likely relate to progression of posttreatment change. No focal mass is seen. 2. New fluid-filled cavitary lesion in the left upper lobe which may represent necrosis. 3. No evidence of bulky intrathoracic lymphadenopathy. Transcribe Date/Time: Jan 18 2024 6:26P Dictated by: VAZQUEZ CAMACHO MD This examination was interpreted and the report reviewed and electronically signed by: VAZQUEZ CAMACHO MD on Jan 18 2024 6:43PM EST Thank you for allowing us to participate in the care of your patient. Should there be any questions regarding this interpretation, please call [phone]. If you are unable to reach us at the number above, please feel free to contact [facility] eRadiology at [phone]. [facility] Radiology Study observation (narrative) Jose Cruz santiago [facility] CT Chest W contrast IVOrdere d By: Cccliff Provider on 01-18-2024 [facility] [place] [facility] ([id number]) 1960 F Date Time Provider Department 12/24/23 ABDI ISRAEL During your visit today, we recorded the following information about you: Rodney Rinaldi 12/24/2023 1:59 PM Signed Cinthia Guerrero --Omaira was dc'd from [facility]-She hasn't called in to reschedule her appt's. [...] a message to call back to schedule. Adelia Raygoza [facility]UC 12/28/2023 10:55 AM Signed I talked to the Patient and have her scheduled for her CT Scan on Thursday01/18/24 at 1045 am, and her Follow up appointment with Dr. Israel on Thursday01/29/24 at 2 pm. HARJINDER Mcgowan Allergies As of Date: 12/24/2023 (No Known Allergies) Date Reviewed: 11/18/2023 Reviewed by: Khushboo Patel, RN - Fully Assessed Reason for Visit: Appointment Confirmation [[id number]] Prescriptions as of 12/28/2023 - predniSONE 10 mg tablet pack 5 [...] once daily. 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 Performed By: #### C MP, CBC, HS TROP, TSH3 wRFLX #### [address] GFR/1.73 sq M.predicted MDRD (S/P/Bld) [Vol rate/Area] mL/min/{1.73_m2} Normal [facility] Comment on above: Performed By: #### C MP, CBC, HS TROP, TSH3 wRFLX #### [facility] [address] [id number] [place] Calcium [Mass/volume] in Ser um or PlasmaOrdered By: Cassandra Andersen on 12-23-2023 Calcium [Mass/Vol] 9.4 mg/dL Normal 8.6-10.3 [facility] Comment on above: Performed By: #### C MP, CBC, HS TROP, TSH3 wRFLX #### [facility] [address] [id number] [place] Calcium [Mass/Vol] Calcium [Mass/volume ] in Serum or Plasma 8.6-10.3 [facility] Carbon dioxide, total [Moles /volume] in Serum or PlasmaOrdered By: Cassandra Andersen on 12-23-2023 CO2 [Moles/Vol] 44.4 mmol/L High 21.0-31.0 [facility] Comment on above: Performed By: #### C MP, CBC, HS TROP, TSH3 wRFLX #### [facility] [address] [place] [address] [place] CO2 [Moles/Vol] Carbon dioxide, tota l [Moles/volume] in Serum or Plasma High 21.0-31.0 [facility] Chloride [Moles/volume] in S karmen or PlasmaOrdered By: Cassandra Andersen on 12-23-2023 Chloride [Moles/Vol] 92 mmol/L Low 98-[address] [facility] Comment on above: Performed By: #### C MP, CBC, HS TROP, TSH3 wRFLX #### [facility] [address] [id number] [place] Chloride [Moles/Vol] Chloride [Moles/volume] in Serum or Plasma Low 98-107 [facility] Creatinine [Mass/volume] in Serum or PlasmaOrdered By: Cassandra Andersen on 12-23-2023 Creatinine [Mass/Vol] 0.40 mg/dL Low 0.60-1.20 [facility] Comment on above: Performed By: #### C MP, CBC, HS TROP, TSH3 wRFLX #### [facility] [address] [id number] [place] Creatinine [Mass/Vol] Creatinine [Mass/volume] in Serum or Plasma Low 0.60-1.20 [facility] Glucose [Mass/volume] in Ser um or PlasmaOrdered By: Cassandra Andersen on 12-23-2023 Glucose [Mass/Vol] 80 mg/dL Normal 70-100 [facility] Comment on above: ADA recommended refe rence rangeRandom Glucose Reference Range is dependent on time and content of last meal. Glucose of more than 200 mg/dL in a nonstressed, ambulatory subject supports the diagnosis of Diabetes Mellitus. Result Comment: [place] Glucose Reference Range is dependent on time and content of last meal. Glucose of more than 200 mg/dL in a nonstressed, ambulatory subject supports the diagnosis of Diabetes Mellitus. ADA recommended reference range Performed By: #### C MP, CBC, HS TROP, TSH3 wRFLX #### [facility] [address] [id number] [place] Glucose [Mass/Vol] Glucose [Mass/volume ] in Serum or Plasma 70-100 [facility] Comment on above: ADA recommended refe rence rangeRandom Glucose Reference Range is dependent on time and content of last meal. Glucose of more than 200 mg/dL in a nonstressed, ambulatory subject supports the diagnosis of Diabetes Mellitus. No Panel InformationOrdered By: Cassandra Andersen on 12-23-2023 Estimated GFR (CKD-EPI) > 60.0 mL/Min [facility] Creatinine Clearance (Chem 90.01 [facility] Potassium [Moles/volume] in Serum or PlasmaOrdered By: Cassandra Andersen on 12-23-2023 Potassium [Moles/Vol] 4.5 mmol/L Normal 3.5-5.1 [facility] Comment on above: Performed By: #### C MP, CBC, HS TROP, TSH3 wRFLX #### [facility] [address] [id number] [place] Potassium [Moles/Vol] Potassium [Moles/volume] in Serum or Plasma 3.5-5.1 [facility] Serum or plasma anion gap de terminationOrdered By: Cassandra Andersen on 12-23-2023 Anion gap [Moles/Vol] 8.1 mmol/L Normal 6.0-15.0 [facility] Comment on above: Performed By: #### C MP, CBC, HS TROP, TSH3 wRFLX #### [place] [address] [place] Anion gap [Moles/Vol] Serum or plasma an ion gap determination 6.0-15.0 [facility] Sodium [Moles/volume] in Ser um or PlasmaOrdered By: Cassandra Andersen on 12-23-2023 Sodium [Moles/Vol] 140 mmol/L Normal 136-145 [facility] Comment on above: Performed By: #### C MP, CBC, HS TROP, TSH3 wRFLX #### [address] Sodium [Moles/Vol] Sodium [Moles/volume ] in Serum or Plasma 136-145 [facility] Urea nitrogen [Mass/volume] in Serum or PlasmaOrdered By: Cassandra Andersen on 12-23-2023 Urea nitrogen [Mass/Vol] 12 mg/dL Normal 11-04 [facility] Comment on above: Performed By: #### C MP, CBC, HS TROP, TSH3 wRFLX #### [address] Urea nitrogen [Mass/Vol] Urea nitrogen [Mass/volume] in Serum or Plasma - [facility] Aerobic Cultureon 12-22-2023 Aerobic Culture ORGANISM: Milagros albicans (O:CANALB) Quantity of Growth Light Growth Gram Stain Result 2+ White Blood Cells 2+ Epithelial Cells 3+ Gram Positive Coccobacilli 2+ Gram Positive Cocci in Pairs PERFORMED BY: [place] [address] PATHOLOGIST [employer] BALANCING TECHNICIAN JASMEET LIN M.D. Normal [facility] Comment on above: Performed By: #### C MP, CBC, HS TROP, TSH3 wRFLX #### [address] [place] [address] [place] Bacteria identified Aer cx N om (Unsp spec)Ordered By: Denver Rasmussen on 12-22-2023 Aerobic Culture Abnormal [facility] Gram Stainon 12-22-2023 Microscopic observation Gram stain Nom (Unsp spec) Gram Stain Result 2+ White Blood Cells 2+ Epithelial Cells 3+ Gram Positive Coccobacilli 2+ Gram Positive Cocci in Pairs PERFORMED BY: [place] [address] PATHOLOGIST [employer] AND [employer]DR[employer] BALANCING TECHNICIAN JASMEET LIN M.D. Normal [facility] Comment on above: Performed By: #### C MP, CBC, HS TROP, TSH3 wRFLX #### [facility] [address] [place] [address] Gram stain for investigation of transfusion reactionOrdered By: Denver Rasmussen on 12-22-2023 Microscopic observation Gram stain Nom (Unsp spec) Yeast Like Organism Abnormal [facility] Gram stain microscopyOrdered By: Denver Rasmussen on 12-22-2023 Microscopic observation Gram stain Nom (Unsp spec) Gram stain microscopy [facility] Wound methicillin resistant Staphylococcus aureus (MRSA) cultureOrdered By: Denver Rasmussen on 12-22-2023 MRSA isol Org specific cx Ql (Unsp spec) Wound methicillin resistant Staphylococcus aureus (MRSA) culture [facility] Alanine aminotransferase [En zymatic activity/volume] in Serum or PlasmaOrdered By: Mg Vaughn on 12-21-2023 ALT [Catalytic activity/Vol] 25 U/L Normal [facility] Comment on above: Performed By: #### C BC, CMP #### [facility] [address] [place] [address] ALT [Catalytic activity/Vol] Alanine aminotransferase [Enzymatic activity/volume] in Serum or Plasma [facility] Albumin [Mass/volume] in Ser um or Plasma by Bromocresol green (BCG) dye binding methoOrdered By: Mg Vaughn on 12-21-2023 Albumin BCG dye [Mass/Vol] 3.9 g/dL 3.5-5.7 [facility] Albumin BCG dye [Mass/Vol] Albumin [Mass/volume] in Serum or Plasma by Bromocresol green (BCG) dye binding metho 3.5-5.7 [facility] Alkaline phosphatase [Enzyma tic activity/volume] in Serum or PlasmaOrdered By: Mg Vaughn on 12-21-2023 ALP [Catalytic activity/Vol] 73 U/L Normal 34-104 [facility] Comment on above: Performed By: #### C BC, CMP #### [address] ALP [Catalytic activity/Vol] Alkaline phosphatase [Enzymatic activity/volume] in Serum or Plasma 34-104 [facility] Aspartate aminotransferase [ Enzymatic activity/volume] in Serum or PlasmaOrdered By: Mg Vaughn on 12-21-2023 AST [Catalytic activity/Vol] 21 U/L Normal 39 [facility] Comment on above: Performed By: #### C BC, CMP #### [address] AST [Catalytic activity/Vol] Aspartate aminotransferase [Enzymatic activity/volume] in Serum or Plasma 13 [facility] Automated basophil %Ordered By: Mg Vaughn on 12-21-2023 Basophils/100 WBC (Bld) 0.5 % Normal . [facility] Comment on above: Performed By: #### C BC, CMP #### [address] Automated basophil countOrde red By: Mg Vaughn on 12-21-2023 Basophils (Bld) [#/Vol] 0.0 10*3/uL Normal 0.0-0.2 [facility] Comment on above: Result Comment: PERF ORMED BY: [place] [address] PATHOLOGIST [employer] BALANCING TECHNICIAN JASMEET LIN M.D. Performed By: #### C BC, CMP #### [address] Automated blood monocyte cou ntOrdered By: Mg Vaughn on 12-21-2023 Monocytes (Bld) [#/Vol] 0.8 10*3/uL Normal 0.0-0.8 [facility] Comment on above: Performed By: #### C BC, CMP #### [facility] [address] [place] [address] Automated eosinophil %Ordere d By: Mg Vaughn on 12-21-2023 Eosinophils/100 WBC (Bld) 2.0 % Normal . [facility] Comment on above: Performed By: #### C BC, CMP #### [facility] [address] [place] [address] Automated eosinophil countOr dered By: Mg Vaughn on 12-21-2023 Eosinophils (Bld) [#/Vol] 0.1 10*3/uL Normal 0.0-0.45 [facility] Comment on above: Performed By: #### C BC, CMP #### [address] Automated monocyte %Ordered By: Mg Vaughn on 12-21-2023 Monocytes/100 WBC (Bld) 10.7 % Normal . [facility] Comment on above: Performed By: #### C BC, CMP #### [address] Automated neutrophil %Ordere d By: Mg Vaughn on 12-21-2023 Neutrophils/100 WBC (Bld) 58.3 % Normal . [facility] Comment on above: Performed By: #### C BC, CMP #### [facility] [address] [place] [address] Basophils Auto (Bld) [#/Vol] Ordered By: Mg Vaughn on 12-21-2023 Basophils (Bld) [#/Vol] Automated basoph il count 0.0-0.2 [facility] Basophils/100 WBC Auto (Bld) Ordered By: Mg Vaughn on 12-21-2023 Basophils/100 WBC (Bld) Automated basophil % . [facility] Bilirubin.total [Mass/volume ] in Serum or PlasmaOrdered By: Mg Vaughn on 12-21-2023 Bilirubin [Mass/Vol] 0.4 mg/dL Normal 0.3-1.[address] [facility] Comment on above: Performed By: #### C BC, CMP #### [address] Bilirubin [Mass/Vol] Bilirubin.total [Mass/volume] in Serum or Plasma 0.3-1.0 [facility] BioFire Not Detectedon 12-20 BioFire Not Detected Not detected Normal Not Detecte [facility] Comment on above: Result Comment: This is a duplicate RP2.1 COVID (PCR) result to be used for statistical tracking purpose only. PERFORMED BY: [place] [address] PATHOLOGIST [employer] BALANCING TECHNICIAN JASMEET LIN M.D. Performed By: #### R TERRI PANEL UPP., BIOFIRECOVNOTDE #### [address] COVID-19 Detected/Not Detect edOrdered By: Mg Vaughn on 12-21-2023 SARS-CoV-2 (COVID-19) RNA KRUNAL+non-probe Ql (Nph) Not detected Not Detecte [facility] Comment on above: This is a duplicate RP2.1 COVID (PCR) result to be used for statistical tracking purpose only. Complete Blood Count Auto Di ffon 12-21-2023 Mean Corpuscular HGB Conc 32.3 g/dL Normal 32.0-35.0 [facility] Comment on above: Performed By: #### C BC, CMP #### [address] NRBC% 0.1 /100{WBC} Normal 0-0.5 [facility] Comment on above: Performed By: #### C BC, CMP #### [address] Comprehensive Metabolic Pane shelby 12-21-2023 Albumin [Mass/Vol] 3.9 g/dL Normal 3.5-5.7 [facility] Comment on above: Performed By: #### C BC, CMP #### [address] Anion gap [Moles/Vol] Not performed Normal 6.0-15.0 [facility] Comment on above: Performed By: #### C BC, CMP #### [place] [address] [place] Calcium [Mass/Vol] 9.6 mg/dL Normal 8.6-10.3 [facility] Comment on above: Performed By: #### C BC, CMP #### [facility] [address] [place] [address] [place] Chloride [Moles/Vol] 87 mmol/L Low 98-107 [facility] Comment on above: Performed By: #### C BC, CMP #### [facility] [address] [place] [address] [place] CO2 [Moles/Vol] mmol/L High 21.0-31.0 [facility] Comment on above: Performed By: #### C BC, CMP #### [place] [address] [place] Creatinine [Mass/Vol] 0.42 mg/dL Low 0.60-1.20 [facility] Comment on above: Performed By: #### C BC, CMP #### [place] [address] [place] Creatinine Clr Calc Pharmacy 85.29 Normal [facility] Comment on above: Result Comment: PERF ORMED BY: [place] [address] PATHOLOGIST [employer] BALANCING TECHNICIAN JASMEET LIN M.D. Performed By: #### C BC, CMP #### [place] [address] [place] GFR/1.73 sq M.predicted MDRD (S/P/Bld) [Vol rate/Area] mL/min/{1.73_m2} Normal [facility] Comment on above: Performed By: #### C BC, CMP #### [address] Glucose [Mass/Vol] 81 mg/dL Normal 70-100 [facility] Comment on above: Result Comment: [place] Glucose Reference Range is dependent on time and content of last meal. Glucose of more than 200 mg/dL in a nonstressed, ambulatory subject supports the diagnosis of Diabetes Mellitus. ADA recommended reference range Performed By: #### C BC, CMP #### [facility] [address] Potassium [Moles/Vol] 3.9 mmol/L Normal 3.5-5.1 [facility] Comment on above: Performed By: #### C BC, CMP #### [facility] [address] Sodium [Moles/Vol] 139 mmol/L Normal 136-145 [facility] Comment on above: Performed By: #### C BC, CMP #### [facility] [address] Urea nitrogen [Mass/Vol] 14 mg/dL Normal 7-25 [facility] Comment on above: Performed By: #### C BC, CMP #### [address] Eosinophils Auto (Bld) [#/Vo l]Ordered By: Mg Vaughn on 12-21-2023 Eosinophils (Bld) [#/Vol] Automated eosinophil count 0.0-0.45 [facility] Eosinophils/100 WBC Auto (Bl d)Ordered By: Mg Vaughn on 12-21-2023 Eosinophils/100 WBC (Bld) Automated eosinophil % . [facility] Erythrocyte distribution wid th Auto (RBC) [Ratio]Ordered By: Mg Vaughn on 12-21-2023 Erythrocyte distribution width (RBC) [Ratio] Erythrocyte distribution width [Ratio] by Automated count 11.9-15.3 [facility] Erythrocyte distribution wid th [Ratio] by Automated countOrdered By: Mg Vaughn on 12-21-2023 Erythrocyte distribution width (RBC) [Ratio] 14.3 % Normal 11.9-15.3 [facility] Comment on above: Performed By: #### C BC, CMP #### [address] Erythrocytes [#/volume] in B lood by Automated countOrdered By: Mg Vaughn on 12-21-2023 RBC (Bld) [#/Vol] 5.25 10*6/uL High 3.60-5.00 [facility] Comment on above: Performed By: #### C ELIF, CMP #### [address] Globulin Calc (S) [Mass/Vol] Ordered By: Mg Vaughn on 12-21-2023 Globulin (S) [Mass/Vol] Serum globulin measurement by calculation (mass/volume) [facility] Hematocrit Auto (Bld) [Volum e fraction]Ordered By: Mg Vaughn on 12-21-2023 Hematocrit (Bld) [Volume fraction] Hematocrit [Volume Fraction] of Blood by Automated count 34.0-46.4 [facility] Hematocrit [Volume Fraction] of Blood by Automated countOrdered By: Mg Vaughn on 12-21-2023 Hematocrit (Bld) [Volume fraction] 43.9 % Normal 34.0-46.4 [facility] Comment on above: Performed By: #### C ELIF, CMP #### [address] Hemoglobin [Mass/volume] in BloodOrdered By: Mg Vaughn on 12-21-2023 Hemoglobin (Bld) [Mass/Vol] 14.2 g/dL Normal 11.8-15.4 [facility] Comment on above: Performed By: #### C ELIF, CMP #### [address] Hemoglobin (Bld) [Mass/Vol] Hemoglobin [Mass/volume] in Blood 11.8-15.4 [facility] Leukocytes [#/volume] correc sommer for nucleated erythrocytes in Blood by Automated counOrdered By: Mg Vaughn on 12-21-2023 WBC corrected for nucl RBC Auto (Bld) [#/Vol] 7.0 10*3/uL 3.8-11.6 [facility] WBC corrected for nucl RBC Auto (Bld) [#/Vol] Leukocytes [#/volume] corrected for nucleated erythrocytes in Blood by Automated coun 3.8-11.6 [facility] Leukocytes [#/volume] in Blo od by Automated countOrdered By: Mg Vaughn on 12-21-2023 WBC (Bld) [#/Vol] 7.0 10*3/uL Normal 3.8-11.6 [facility] Comment on above: Performed By: #### C BC, CMP #### [address] Lymphocytes Auto (Bld) [#/Vo l]Ordered By: Mg Vaughn on 12-21-2023 Lymphocytes (Bld) [#/Vol] Lymphocytes [#/volume] in Blood by Automated count 1.00-4.8 [facility] Lymphocytes [#/volume] in Bl ood by Automated countOrdered By: Mg Vaughn on 12-21-2023 Lymphocytes (Bld) [#/Vol] 2.0 10*3/uL Normal 1.00-4.8 [facility] Comment on above: Performed By: #### C BC, CMP #### [address] Lymphocytes/100 WBC Auto (Bl d)Ordered By: Mg Vaughn on 12-21-2023 Lymphocytes/100 WBC (Bld) Lymphocytes/100 leukocytes in Blood by Automated count . [facility] Lymphocytes/100 leukocytes i n Blood by Automated countOrdered By: Mg Vaughn on 12-21-2023 Lymphocytes/100 WBC (Bld) 28.5 % Normal . [facility] Comment on above: Performed By: #### C BC, CMP #### [address] MCH Auto (RBC) [Entitic mass ]Ordered By: Mg Vaughn on 12-21-2023 MCH (RBC) [Entitic mass] MCH [Entitic mass] by Automated count 24.7-34.3 [facility] MCH [Entitic mass] by Automa sommer countOrdered By: Mg Vaughn on 12-21-2023 MCH (RBC) [Entitic mass] 27.1 pg Normal 24.7-34.3 [facility] Comment on above: Performed By: #### C BC, CMP #### [address] MCHC Auto (RBC) [Mass/Vol]Or dered By: Mg Vaughn on 12-21-2023 MCHC (RBC) [Mass/Vol] 32.3 g/dL 32.0-35.0 [facility] MCHC (RBC) [Mass/Vol] MCHC [Mass/volume] by Automated count 32.0-35.0 [facility] MCV Auto (RBC) [Entitic vol] Ordered By: Mg Vaughn on 12-21-2023 MCV (RBC) [Entitic vol] MCV [Entitic vol ume] by Automated count 80-100 [facility] MCV [Entitic volume] by Auto mated countOrdered By: Mg Vaughn on 12-21-2023 MCV (RBC) [Entitic vol] 83.8 fL Normal 80-100 [facility] Comment on above: Performed By: #### C BC, CMP #### [facility] [address] MRSA Cultureon 12-21-2023 MRSA Culture MRSA Culture Results No MRSA Isolated 2 Days Rare growth of normal respiratory nava. PERFORMED BY: [address] [place] [address] PATHOLOGIST [employer] BALANCING TECHNICIAN JASMEET LIN M.D. Normal [facility] Comment on above: Performed By: #### C MP, CBC, HS TROP, TSH3 wRFLX #### [facility] [address] [place] [address] Monocytes Auto (Bld) [#/Vol] Ordered By: Mg Vaughn on 12-21-2023 Monocytes (Bld) [#/Vol] Automated blood monocyte count 0.0-0.8 [facility] Monocytes/100 WBC Auto (Bld) Ordered By: Mg Vaughn on 12-21-2023 Monocytes/100 WBC (Bld) Automated monocyte % . [facility] Neutrophils Auto (Bld) [#/Vo l]Ordered By: Mg Vaughn on 12-21-2023 Neutrophils (Bld) [#/Vol] Neutrophils [#/volume] in Blood by Automated count 1.8-7.7 [facility] Neutrophils [#/volume] in Bl ood by Automated countOrdered By: Mg Vaughn on 12-21-2023 Neutrophils (Bld) [#/Vol] 4.1 10*3/uL Normal 1.8-7.7 [facility] Comment on above: Performed By: #### C BC, CMP #### [facility] [address] [place] [address] Neutrophils/100 WBC Auto (Bl d)Ordered By: Mg Vaughn on 12-21-2023 Neutrophils/100 WBC (Bld) Automated neutrophil % . [facility] Nucleated erythrocytes [Pres ence] in Blood by Automated countOrdered By: Mg Vaughn on 12-21-2023 Nucleated RBC Auto Ql (Bld) 0.1 /100{WBC} 0-0.5 [facility] Nucleated RBC Auto Ql (Bld) Nucleated erythrocytes [Presence] in Blood by Automated count 0-0.5 [facility] Platelet mean volume Auto (B ld) [Entitic vol]Ordered By: Mg Vaughn on 12-21-2023 Platelet mean volume (Bld) [Entitic vol] Platelet mean volume [Entitic volume] in Blood by Automated count 6.3-10.7 [facility] Platelet mean volume [Entiti c volume] in Blood by Automated countOrdered By: Mg Vaughn on 12-21-2023 Platelet mean volume (Bld) [Entitic vol] 7.2 fL Normal 6.3-10.7 [facility] Comment on above: Performed By: #### C BC, CMP #### [facility] [address] [place] [address] Platelets Auto (Bld) [#/Vol] Ordered By: Mg Vaughn on 12-21-2023 Platelets (Bld) [#/Vol] Platelets [#/vol ume] in Blood by Automated count 150-450 [facility] Platelets [#/volume] in Bloo d by Automated countOrdered By: Mg Vaughn on 12-21-2023 Platelets (Bld) [#/Vol] 334 10*3/uL Normal 150-450 [facility] Comment on above: Performed By: #### C BC, CMP #### [address] [place] [address] [place] Protein [Mass/volume] in Ser um or PlasmaOrdered By: Mg Vaughn on 12-21-2023 Protein [Mass/Vol] 7.1 g/dL Normal 6.4-8.9 [facility] Comment on above: Performed By: #### C BC, CMP #### [facility] [address] [place] [address] [place] Protein [Mass/Vol] Protein [Mass/volume ] in Serum or Plasma 6.4-8.9 [facility] RBC Auto (Bld) [#/Vol]Ordere d By: Mg Vaughn on 12-21-2023 RBC (Bld) [#/Vol] Erythrocytes [#/volume] in Blood by Automated count High 3.60-5.00 [facility] Respiratory (Upper) Panel, P CRon 12-21-2023 Respiratory [...] FLUA TEST INCLUDES - Influenza A H1 2009 FLUA TEST INCLUDES - Influenza A H3 Blank Space PERFORMED BY: [place] [address] PATHOLOGIST [employer] BALANCING TECHNICIAN JASMEET LIN M.D. Normal [facility] Comment on above: Performed By: #### R TERRI PANEL UPP., BIOFIRECOVNOTDE #### [address] Respiratory pathogens DNA an d RNA panel - Nasopharynx by KRUNAL with non-probe detectionOrdered By: Mg Vaughn on 12-21-2023 Respiratory pathogens DNA and RNA panel KRUNAL+non-probe (Nph) Respiratory pathogens DNA and RNA panel - Nasopharynx by KRUNAL with non-probe detection [facility] Respiratory pathogens DNA and RNA panel KRUNAL+non-probe (Nph) [facility] Serum globulin measurement b y calculation (mass/volume)Ordered By: Mg Vaughn on 12-21-2023 Globulin (S) [Mass/Vol] 3.2 g/dL Normal [facility] Comment on above: Performed By: #### C BC, CMP #### [address] Serum or plasma albumin/glob ulin mass ratioOrdered By: Mg Vaughn on 12-21-2023 Albumin/Globulin [Mass ratio] 1.2 {ratio} Normal [facility] Comment on above: Performed By: #### C BC, CMP #### [place] [address] [place] Albumin/Globulin [Mass ratio] Serum or plasma albumin/globulin mass ratio [facility] WBC Auto (Bld) [#/Vol]Ordere d By: Mg Vaughn on 12-21-2023 WBC (Bld) [#/Vol] Leukocytes [#/volume ] in Blood by Automated count 3.8-11.6 [facility] Wound methicillin resistant Staphylococcus aureus (MRSA) cultureOrdered By: Denver Rasmussen on 12-21-2023 MRSA isol Org specific cx Ql (Unsp spec) [facility] XR chest 1V portableon 12-20 XR chest 1V portable [facility] Main [place] [address] [place] [address] XRay Report Signed Patient: Cinthia Guerrero MR#: [id number] : 1960 Acct:[id number] Age/Sex: 63 / F ADM Date: 12/20/23 Loc: Room: [address] [place] [address] Type: ADM INOo Attending Dr: Cassandra Andersen [...] Jeanette Carlin M.D.12/21/2023 7:51 AM Dictation Location: [place] [address] Transcribed By: [facility] 12/21/23 0751 Dictated By: Jeanette Carlin MD 12/21/23 0748 Signed By: 12/21/23 0751 Normal [facility] Alanine aminotransferase [En zymatic activity/volume] in Serum or PlasmaOrdered By: Rip Celestin on 12-20-2023 ALT [Catalytic activity/Vol] 28 U/L Normal 7-52 [facility] Comment on above: Performed By: #### C MP, CBC, HS TROP, TSH3 wRFLX #### [facility] [address] Albumin [Mass/volume] in Ser um or Plasma by Bromocresol green (BCG) dye binding methoOrdered By: Rip Celestin on 12-20-2023 Albumin BCG dye [Mass/Vol] 4.2 g/dL 3.5-5.7 [facility] Alkaline phosphatase [Enzyma tic activity/volume] in Serum or PlasmaOrdered By: Rip Celestin on 12-20-2023 ALP [Catalytic activity/Vol] 77 U/L Normal 34-104 [facility] Comment on above: Performed By: #### C MP, CBC, HS TROP, TSH3 wRFLX #### [address] Aspartate aminotransferase [ Enzymatic activity/volume] in Serum or PlasmaOrdered By: Rip Celestin on 12-20-2023 AST [Catalytic activity/Vol] 20 U/L Normal 13-39 [facility] Comment on above: Performed By: #### C MP, CBC, HS TROP, TSH3 wRFLX #### [address] Automated basophil %Ordered By: Rip Celestin on 12-20-2023 Basophils/100 WBC (Bld) 0.3 % Normal . [facility] Comment on above: Performed By: #### C MP, CBC, HS TROP, TSH3 wRFLX #### [address] Automated basophil countOrde red By: Rip Celestin on 12-20-2023 Basophils (Bld) [#/Vol] 0.0 10*3/uL Normal 0.0-0.2 [facility] Comment on above: Result Comment: PERF ORMED BY: [place] [address] PATHOLOGIST [employer] BALANCING TECHNICIAN JASMEET LIN M.D. Performed By: #### C MP, CBC, HS TROP, TSH3 wRFLX #### [address] Automated blood monocyte cou ntOrdered By: Rip Celestin on 12-20-2023 Monocytes (Bld) [#/Vol] 0.5 10*3/uL Normal 0.0-0.8 [facility] Comment on above: Performed By: #### C MP, CBC, HS TROP, TSH3 wRFLX #### [address] Automated eosinophil %Ordere d By: Rip Celestin on 12-20-2023 Eosinophils/100 WBC (Bld) 0.1 % Normal . [facility] Comment on above: Performed By: #### C MP, CBC, HS TROP, TSH3 wRFLX #### [facility] [address] [place] [address] Automated eosinophil countOr dered By: Rip Celestin on 12-20-2023 Eosinophils (Bld) [#/Vol] 0.0 10*3/uL Normal 0.0-0.45 [facility] Comment on above: Performed By: #### C MP, CBC, HS TROP, TSH3 wRFLX #### [address] Automated monocyte %Ordered By: Rip Celestin on 12-20-2023 Monocytes/100 WBC (Bld) 5.9 % Normal . [facility] Comment on above: Performed By: #### C MP, CBC, HS TROP, TSH3 wRFLX #### [address] Automated neutrophil %Ordere d By: Rip Celestin on 12-20-2023 Neutrophils/100 WBC (Bld) 83.9 % Normal . [facility] Comment on above: Performed By: #### C MP, CBC, HS TROP, TSH3 wRFLX #### [address] BNP ser/plasOrdered By: [place] Celestin on 12-20-2023 Natriuretic peptide B (Bld) [Mass/Vol] 44.0 pg/mL Normal 5-100 [facility] Comment on above: Result Comment: PERF ORMED BY: [place] [address] PATHOLOGIST [employer] AND [employer] BALANCING TECHNICIAN JASMEET LIN M.D. Performed By: #### C MP, CBC, HS TROP, TSH3 wRFLX #### [address] Bilirubin.total [Mass/volume ] in Serum or PlasmaOrdered By: Rip Celestin on 12-20-2023 Bilirubin [Mass/Vol] 0.3 mg/dL Normal 0.3-1.[address] [facility] Comment on above: Performed By: #### C MP, CBC, HS TROP, TSH3 wRFLX #### [facility] [address] Calcium [Mass/volume] in Ser um or PlasmaOrdered By: Rip Skydana on 12-20-2023 Calcium [Mass/Vol] 9.8 mg/dL Normal 8.6-10.3 [facility] Comment on above: Performed By: #### C MP, CBC, HS TROP, TSH3 wRFLX #### [address] Carbon dioxide, total [Moles /volume] in Serum or PlasmaOrdered By: Rip Ant on 12-20-2023 CO2 [Moles/Vol] mmol/L High 21.0-31.0 [facility] Comment on above: Critical valueresult calledat 2101 on 12/20/23 Result Comment: Crit ical value result called at 2101 on 12/20/23 Performed By: #### C MP, CBC, HS TROP, TSH3 wRFLX #### [address] Chloride [Moles/volume] in S karmen or PlasmaOrdered By: Rip Ant on 12-20-2023 Chloride [Moles/Vol] 86 mmol/L Low 98-[address] [facility] Comment on above: Performed By: #### C MP, CBC, HS TROP, TSH3 wRFLX #### [address] Complete Blood Count Auto Di ffon 12-20-2023 Mean Corpuscular HGB Conc 32.6 g/dL Normal 32.0-35.0 [facility] Comment on above: Performed By: #### C MP, CBC, HS TROP, TSH3 wRFLX #### [place] [address] [place] Monocytes/100 WBC (Bld) 16.32 % Normal 0.00-20.00 [facility] Comment on above: Performed By: #### C MP, CBC, HS TROP, TSH3 wRFLX #### [address] NRBC% 0.1 /100{WBC} Normal 0-0.5 [facility] Comment on above: Performed By: #### C MP, CBC, HS TROP, TSH3 wRFLX #### [address] Comprehensive Metabolic Pane shelby 12-20-2023 Albumin [Mass/Vol] 4.2 g/dL Normal 3.5-5.7 [facility] Comment on above: Performed By: #### C MP, CBC, HS TROP, TSH3 wRFLX #### [address] Anion gap [Moles/Vol] Not performed Normal 6.0-15.0 [facility] Comment on above: Performed By: #### C MP, CBC, HS TROP, TSH3 wRFLX #### [address] Creatinine Clr Calc Pharmacy 94.74 Normal [facility] Comment on above: Result Comment: PERF ORMED BY: [place] [address] PATHOLOGIST [employer] BALANCING TECHNICIAN JASMEET LIN M.D. Performed By: #### C MP, CBC, HS TROP, TSH3 wRFLX #### [address] GFR/1.73 sq M.predicted MDRD (S/P/Bld) [Vol rate/Area] mL/min/{1.73_m2} Normal [facility] Comment on above: Performed By: #### C MP, CBC, HS TROP, TSH3 wRFLX #### [address] Creatine kinase [Enzymatic a ctivity/volume] in Serum or PlasmaOrdered By: Rip Celestin on 12-20-2023 CK [Catalytic activity/Vol] 24 U/L Low 30-223 [facility] Comment on above: Performed By: #### C MP, CBC, HS TROP, TSH3 wRFLX #### [facility] [address] [place] [id number] [place] CK [Catalytic activity/Vol] Creatine kinase [Enzymatic activity/volume] in Serum or Plasma Low 30-223 [facility] Creatinine [Mass/volume] in Serum or PlasmaOrdered By: Rip Celestin on 12-20-2023 Creatinine [Mass/Vol] 0.41 mg/dL Low 0.60-1.20 [facility] Comment on above: Performed By: #### C MP, CBC, HS TROP, TSH3 wRFLX #### [facility] [address] ECG 12 lead ECGon 12-20-2023 ECG 12 lead ECG [facility] Main [place] [address] [place] [address] Electrocardiograph Report Signed Patient: Cinthia Guerrero MR#: [id number] : 1960 Acct:[id number] Age/Sex: 63 / F ADM Date: 12/20/23 Loc: Room: [address] [place] [address] Type: ADM INOo Attending Dr: Mg Vaughn [...] By: MUS Signed By Rip Celestin DO 09/08/ 24 2322 Normal [facility] Erythrocyte distribution wid th [Ratio] by Automated countOrdered By: Rip Celestin on 12-20-2023 Erythrocyte distribution width (RBC) [Ratio] 14.1 % Normal 11.9-15.3 [facility] Comment on above: Performed By: #### C MP, CBC, HS TROP, TSH3 wRFLX #### [facility] 1111 [place] [address] [place] Erythrocytes [#/volume] in B lood by Automated countOrdered By: Rip Celestin on 12-20-2023 RBC (Bld) [#/Vol] 5.37 10*6/uL High 3.60-5.00 [facility] Comment on above: Performed By: #### C MP, CBC, HS TROP, TSH3 wRFLX #### [facility] 1111 [place] [address] [place] Glucose [Mass/volume] in Ser um or PlasmaOrdered By: Rip Celestin on 12-20-2023 Glucose [Mass/Vol] 103 mg/dL High 70-100 [facility] Comment on above: ADA recommended refe rence rangeRandom Glucose Reference Range is dependent on time and content of last meal. Glucose of more than 200 mg/dL in a nonstressed, ambulatory subject supports the diagnosis of Diabetes Mellitus. Result Comment: [place] om Glucose Reference Range is dependent on time and content of last meal. Glucose of more than 200 mg/dL in a nonstressed, ambulatory subject supports the diagnosis of Diabetes Mellitus. ADA recommended reference range Performed By: #### C MP, CBC, HS TROP, TSH3 wRFLX #### [facility] [address] [place] [id number] [place] Hematocrit [Volume Fraction] of Blood by Automated countOrdered By: Rip Celestin on 12-20-2023 Hematocrit (Bld) [Volume fraction] 44.5 % Normal 34.0-46.4 [facility] Comment on above: Performed By: #### C MP, CBC, HS TROP, TSH3 wRFLX #### [facility] [address] [place] [id number] [place] Hemoglobin [Mass/volume] in BloodOrdered By: Rip Celestin on 12-20-2023 Hemoglobin (Bld) [Mass/Vol] 14.5 g/dL Normal 11.8-15.4 [facility] Comment on above: Performed By: #### C MP, CBC, HS TROP, TSH3 wRFLX #### [address] Leukocytes [#/volume] correc sommer for nucleated erythrocytes in Blood by Automated counOrdered By: Rip Celestin on 12-20-2023 WBC corrected for nucl RBC Auto (Bld) [#/Vol] 8.4 10*3/uL 3.8-11.6 [facility] Leukocytes [#/volume] in Blo od by Automated countOrdered By: Rip Celestin on 12-20-2023 WBC (Bld) [#/Vol] 8.4 10*3/uL Normal 3.8-11.6 [facility] Comment on above: Performed By: #### C MP, CBC, HS TROP, TSH3 wRFLX #### [place] [address] [place] Lymphocytes [#/volume] in Bl ood by Automated countOrdered By: Rip Celestin on 12-20-2023 Lymphocytes (Bld) [#/Vol] 0.8 10*3/uL Low 1.00-4.8 [facility] Comment on above: Performed By: #### C MP, CBC, HS TROP, TSH3 wRFLX #### [place] [address] [place] Lymphocytes/100 leukocytes i n Blood by Automated countOrdered By: Rip Celestin on 12-20-2023 Lymphocytes/100 WBC (Bld) 9.8 % Normal . [facility] Comment on above: Performed By: #### C MP, CBC, HS TROP, TSH3 wRFLX #### [place] [address] [place] MCH [Entitic mass] by Automa sommer countOrdered By: Rip Celestin on 12-20-2023 MCH (RBC) [Entitic mass] 27.0 pg Normal 24.7-34.3 [facility] Comment on above: Performed By: #### C MP, CBC, HS TROP, TSH3 wRFLX #### [facility] [address] [place] [address] MCHC Auto (RBC) [Mass/Vol]Or dered By: Rip Celestin on 12-20-2023 MCHC (RBC) [Mass/Vol] 32.6 g/dL 32.0-35.0 [facility] MCV [Entitic volume] by Auto mated countOrdered By: Rip Celestin on 12-20-2023 MCV (RBC) [Entitic vol] 82.9 fL Normal 80-100 [facility] Comment on above: Performed By: #### C MP, CBC, HS TROP, TSH3 wRFLX #### [facility] [address] [place] [address] Monocyte distribution width [Entitic volume] in Blood by AutomatedOrdered By: Rip Celestin on 12-20-2023 Monocyte distribution width Auto (Bld) [Entitic vol] 16.32 % 0.00-20.00 [facility] Monocyte distribution width Auto (Bld) [Entitic vol] Monocyte distribution width [Entitic volume] in Blood by Automated 0.00-20.00 [facility] Natriuretic peptide B [Mass/ Vol]Ordered By: Rip Celestin on 12-20-2023 Natriuretic peptide B (Bld) [Mass/Vol] BNP ser/plas 5-100 [facility] Neutrophils [#/volume] in Bl ood by Automated countOrdered By: Rip Celestin on 12-20-2023 Neutrophils (Bld) [#/Vol] 7.0 10*3/uL Normal 1.8-7.7 [facility] Comment on above: Performed By: #### C MP, CBC, HS TROP, TSH3 wRFLX #### [facility] [address] [place] [address] No Panel InformationOrdered By: Rip Celestin on 12-20-2023 Blood Gas Critical Value See comment [facility] Comment on above: Critical Value greenwood d on: 12/20/2023 at 20:23 Blood Gas Sample Site Venous [facility] FiO2 28 % [facility] Oxygen Delivery Device Nasal cannula [facility] Venous Blood Base Excess 16.9 mmol/L High -3.0-3.0 [facility] Venous Blood Oxygen Content 8.2 mmol/L 6.6-9.7 [facility] Venous Blood Oxygen Saturation 83.6 % High 73.0-76.0 [facility] Venous Blood Partial Pressure CO2 84.8 mm[Hg] Critically high 38.0-50.0 [facility] Venous Blood Partial Pressure O2 46.5 mm[Hg] High 35.0-45.0 [facility] Venous Blood pH 7.37 7.32-7.43 [facility] Estimated GFR (CKD-EPI) > 60.0 mL/Min [facility] Creatinine Clearance (Chem 94.74 [facility] Nucleated erythrocytes [Pres ence] in Blood by Automated countOrdered By: Rip Celestin on 12-20-2023 Nucleated RBC Auto Ql (Bld) 0.1 /100{WBC} 0-0.5 [facility] Platelet mean volume [Entiti c volume] in Blood by Automated countOrdered By: Rip Celestin on 12-20-2023 Platelet mean volume (Bld) [Entitic vol] 7.0 fL Normal 6.3-10.7 [facility] Comment on above: Performed By: #### C MP, CBC, HS TROP, TSH3 wRFLX #### [facility] [address] Platelets [#/volume] in Bloo d by Automated countOrdered By: Rip Celestin on 12-20-2023 Platelets (Bld) [#/Vol] 346 10*3/uL Normal 150-450 [facility] Comment on above: Performed By: #### C MP, CBC, HS TROP, TSH3 wRFLX #### [facility] [address] [place] [address] [place] Potassium [Moles/volume] in Serum or PlasmaOrdered By: Rip Celestin on 12-20-2023 Potassium [Moles/Vol] 4.4 mmol/L Normal 3.5-5.1 [facility] Comment on above: Performed By: #### C MP, CBC, HS TROP, TSH3 wRFLX #### [facility] [address] [place] [address] Protein [Mass/volume] in Ser um or PlasmaOrdered By: Rip Celestin on 12-20-2023 Protein [Mass/Vol] 7.6 g/dL Normal 6.4-8.9 [facility] Comment on above: Performed By: #### C MP, CBC, HS TROP, TSH3 wRFLX #### [address] Serum globulin measurement b y calculation (mass/volume)Ordered By: Rip Celestin on 12-20-2023 Globulin (S) [Mass/Vol] 3.4 g/dL Normal F [facility] Comment on above: Performed By: #### C MP, CBC, HS TROP, TSH3 wRFLX #### [facility] [address] [place] [address] Serum or plasma albumin/glob ulin mass ratioOrdered By: Rip Celestin on 12-20-2023 Albumin/Globulin [Mass ratio] 1.2 {ratio} Normal [facility] Comment on above: Performed By: #### C MP, CBC, HS TROP, TSH3 wRFLX #### [address] Serum or plasma anion gap de terminationOrdered By: Rip Celestin on 12-20-2023 Anion gap [Moles/Vol] TNP [facility] Comment on above: Test not performed Sodium [Moles/volume] in Ser um or PlasmaOrdered By: Rip Celestin on 12-20-2023 Sodium [Moles/Vol] 136 mmol/L Normal 136-145 [facility] Comment on above: Performed By: #### C MP, CBC, HS TROP, TSH3 wRFLX #### [address] Theophyllineon 12-20-2023 Theophylline 3.6 ug/mL Low 10.0-20.0 [facility] Comment on above: Order Comment: Date of last dose?: 20231220 Time of last dose?: 899 Result Comment: Last dose: 12/20/23 PERFORMED BY: [address] [address] PATHOLOGIST [employer] BALANCING TECHNICIAN JASMEET LIN M.D. Performed By: #### C MP, CBC, HS TROP, TSH3 wRFLX #### [place] [id number] [facility] Theophylline [Mass/volume] i n Serum or PlasmaOrdered By: Rip Celestin on 12-20-2023 Theophylline [Mass/Vol] 3.6 ug/mL Low 10.0-20.0 [facility] Comment on above: Last dose: 12/20/23899 Theophylline [Mass/Vol] Theophylline [Mass/volume] in Serum or Plasma Low 10.0-20.0 [facility] Comment on above: Last dose: 12/20/23899 Troponin I High Sensitivityo n 12-20-2023 Troponin I High Sensitivity 4.3 pg/mL Normal 0.0-15.0 [facility] Comment on above: Result Comment: PERF ORMED BY: [address] [address] PATHOLOGIST [employer] BALANCING TECHNICIAN JASMEET LIN M.D. Performed By: #### C MP, CBC, HS TROP, TSH3 wRFLX #### [address] [address] [facility] Troponin I.cardiac [Mass/vol ume] in Serum or Plasma by Detection limit <= 0.01 ng/Ordered By: Rip Celestin on 12-20-2023 Troponin I.cardiac DL <= 0.01 ng/mL [Mass/Vol] 4.3 pg/mL 0.0-15.0 [facility] Troponin I.cardiac DL <= 0.01 ng/mL [Mass/Vol] Troponin I.cardiac [Mass/volume] in Serum or Plasma by Detection limit <= 0.01 ng/ 0.0-15.0 [facility] Urea nitrogen [Mass/volume] in Serum or PlasmaOrdered By: Rip Celestin on 12-20-2023 Urea nitrogen [Mass/Vol] 11 mg/dL Normal 7-25 [facility] Comment on above: Performed By: #### C MP, CBC, HS TROP, TSH3 wRFLX #### [address] Venous Blood GasOrdered By: Rip Celestin on 12-20-2023 CO2 [Moles/Vol] 50.2 mmol/L High 24.0-29.0 [facility] Comment on above: Performed By: #### C MP, CBC, HS TROP, TSH3 wRFLX #### [address] HCO3 (Bld) [Moles/Vol] 47.6 mmol/L High 23.0-29.0 [facility] Comment on above: Performed By: #### C MP, CBC, HS TROP, TSH3 wRFLX #### [address] Venous Blood Gason Oxygen Device Nasal Cannula Normal [facility] Comment on above: Performed By: #### C MP, CBC, HS TROP, TSH3 wRFLX #### [address] Respiratory Critical Normal [facility] Comment on above: Result Comment: Crit ical Value called on: 12/20/2023 at 20:23 PERFORMED BY: [place] [address] PATHOLOGIST [employer] BALANCING TECHNICIAN JASMEET LIN M.D. Performed By: #### C MP, CBC, HS TROP, TSH3 wRFLX #### [address] VBG Base Excess 16.9 mmol/L High -3.0-3.0 [facility] Comment on above: Performed By: #### C MP, CBC, HS TROP, TSH3 wRFLX #### [address] VBG Draw Site Venous Normal [facility] Comment on above: Performed By: #### C MP, CBC, HS TROP, TSH3 wRFLX #### [address] VBG Frac Inspired O2 28 % Normal [facility] Comment on above: Performed By: #### C MP, CBC, HS TROP, TSH3 wRFLX #### [address] VBG O2 Content 8.2 mmol/L Normal 6.6-9.7 [facility] Comment on above: Performed By: #### C MP, CBC, HS TROP, TSH3 wRFLX #### [address] VBG Oxygen Saturation 83.6 % High 73.0-76.0 [facility] Comment on above: Performed By: #### C MP, CBC, HS TROP, TSH3 wRFLX #### [address] VBG PCO2 84.8 mm[Hg] Off scale high 38.0-50.0 [facility] Comment on above: Performed By: #### C MP, CBC, HS TROP, TSH3 wRFLX #### [address] VBG PH Venous PH 7.37 Normal 7.32-7.43 [facility] Comment on above: Performed By: #### C MP, CBC, HS TROP, TSH3 wRFLX #### [address] VBG PO2 46.5 mm[Hg] High 35.0-45.0 [facility] Comment on above: Performed By: #### C MP, CBC, HS TROP, TSH3 wRFLX #### [address] ANES POSTPROC EVALon 024 ANES POSTPROC EVAL HNO ID: [id number] Author: DORON FLORENTINO MD Service: ? Author Type: Anesthesiologist Type: Anesthesia Postprocedure Evaluation Filed: 11/19/2023 07:55 Note Text: POST ANESTHESIA EVALUATION NOTE : 1960 Procedure Summary Date: 11/18/23 Room / Location: [address] Anesthesia Start: 1535 Anesthesia Stop: 1749 Procedure: BIOPSY OR EXCISION LYMPH NODE(S) OPEN, [...] Resp 16 11/18/23 1900 SpO2 100 % 11/18/231899 Post Anesthesia Patient Status Patient Evaluation: bedside. [...] November 19, 2023 TIME: 7:55 AM CSN: [id number] Normal [facility] 11-19-2023 [facility] Telephone (HNQ) CINTHIA GUERRERO ([id number]) 1960 F Date Time Provider Department 11/19/23 TEO CRAFT HNQ During your visit today, we recorded the following information about you: Ananya Acuna 11/19/2023 1:51 PM Signed Person Calling:Omaira Reason for Call: requesting a work excuse for her daughter Kendal Ruiz fir 11/17 AND 11/18. Pt Phone #: [phone] Pharmacy Name and # : Pt last seen: Visit date not found Ananya Diaz ADM Allergies As of Date: 11/19/2023 (No Known [...] Encounter Status:Closed by ANANYA ACUNA on 11/19/23 [facility] ANES PRE-OPon 11-18-2023 ANES PRE-OP HNO ID: [id number] Author: DORON FLORENTINO MD Service: ? Author [...] and consent discussed: yes. Patient / Responsible Constitution Party agrees to proceed: yes Patient / [...] November 18, 2023 TIME: 3:43 PM CSN: [id number] Normal [facility] ECG COMPLETEon 11-18-2023 Atrial Rate 115 BPM [facility] Calculated P [place] 94 degrees [facility] Calculated R [place] 84 degrees [facility] Calculated T [place] 88 degrees [facility] P-R Interval 158 ms [facility] QRS Duration 74 ms [facility] QT Interval 312 ms [facility] QTC Calculation (Bazett) 431 ms [facility] Ventricular Rate 115 BPM [facility] SINUS TACHYCARDIA RIGHT ATRIAL ENLARGEMENT MINIMAL VOLTAGE CRITERIA FOR LVH, MAY BE NORMAL VARIANT BORDERLINE ECG NO PREVIOUS ECGS AVAILABLE Confirmed by MD BLAND GREGORY () on 11/18/2023 7:35:32 AM [facility] NAME : CINTHIA GUERRERO PID : [id number] : 1960 Gender : Female Race : ORD : [id number] Procedure Date : Nov 17 2023 14:38:04 Edit Date : Nov 18 2023 07:35:34 Diagnosis: SINUS TACHYCARDIA RIGHT ATRIAL ENLARGEMENT MINIMAL VOLTAGE CRITERIA FOR LVH, MAY BE NORMAL VARIANT BORDERLINE ECG NO PREVIOUS ECGS AVAILABLE Confirmed by MD BLAND GREGORY () on 11/18/2023 7:35:32 AM Test Reason : [facility] Location : 10 : [facility] Overread By : MD BLAND GREGORY Edited By : MD BLAND GREGORY Referred By : TEO CRAFT Acquired by : PERLA JUNIOR CPD [facility] OPERATIVE NOon 11-18-2023 OPERATIVE NO HNO ID: [id number] Author: TEO CRAFT MD Service: Otolaryngology Author Type: Physician Type: Operative Report Filed: 11/23/2023 12:14 Note Text: The [address] [id number] or (244) [facility]-C[facility] C O N F I D E N T I A L I N F O R M A T I O N STANDARD [facility] DOCUMENT OPERATIVE REPORT Otolaryngology Head and Neck Surgery Name: CINTHIA Guerrero [facility] #: [id number] Date: 11/18/2023 Date of : 1960 Pre [...] Teo Craft MD Brandon Prendes, MD Normal [facility] SURGICAL PATHOLOGYon 024 CASE REPORT Normal [facility] Comment on above: Order Comment: Speci men Type: TISSUE SPECIMENOrdering Facility: [facility] Address: [address] [place] [address] Result Comment: Surg ica Pathology Report Case: [id number] Authorizing Provider: Teo Craft MD Collected: 11/18/2023 04:25 PM Ordering Location: Admitting Received: 11/18/2023 05:12 PM Pathologist: Stephane Elmore MD, PhD Specimens: A) - Lymph Node, Biopsy, Left posterior supraclavicular lymph node B) - Lymph Node, Biopsy, Left supraclavicular external jugular node Performed By: #### S ####[facility] [id number] [address] LABORATORYCLIA [id number] [address] CLINICAL HISTORY Normal [facility] Comment on above: Order Comment: Speci men Type: TISSUE SPECIMENOrdering Facility: [facility] Address: [address] [place] [address] Result Comment: Pre- op diagnosis: Non-small cell cancer of left lung (HCC) [C34.92] Lymphadenopathy [R59.1] Performed By: #### S ####[facility] [id number] [address] LABORATORYCLIA [id number] [address] DIAGNOSIS COMMENT Normal [facility] Comment on above: Order Comment: Speci deepthi Type: TISSUE SPECIMENOrdering Facility: [facility] Address: [address] [place] [address] Result Comment: The morphologic findings described below show benign lymph nodes with follicular hyperplasia. Granulomatous diseases not identified. GMS stains are negative for microorganisms. There is no evidence of a lymphoproliferative disorder, metastatic carcinoma or other malignancy. Laboratory Developed Test (LDT) Disclaimer: Performance characteristics of immunohistochemical, immunofluorescent and chromogenic in-situ hybridization tests have been determined by the performing laboratory within [facility]???s Adarsh Yang Pathology and Laboratory Medicine Department ([facility], [facility][1], [facility], [facility], [facility], [facility], [facility]) in a manner consistent with CLIA requirements. One or more of these tests have not been cleared or approved by the FDA. [facility] is regulated under CLIA as qualified to perform high-complexity testing. These tests are used for clinical purposes. They should not be regarded as investigational or for research. Positive and negative controls stain appropriately. Performed By: #### S ####[facility] [id number] [address] LABORATORYIA [id number] [address] FINAL DIAGNOSIS Normal [facility] Comment on above: Order Comment: Speci men Type: TISSUE SPECIMENOrdering Facility: [facility] Address: [address] [place] [address] Result Comment: Lymp h nodes, left posterior supraclavicular and left supraclavicular external jugular, excisional biopsies (A-B): - Benign lymph nodes with follicular hyperplasia. - GMS stains negative for microorganisms. - No evidence of malignancy. - See comment. [facility] 11/27/2023 Performed By: #### S ####[facility] [id number] [address] LABORATORYIA [id number] [address] FINAL PERFORMING LAB Normal [facility] Comment on above: Order Comment: Speci men Type: TISSUE SPECIMENOrdering Facility: [facility] Address: [address] [place] [address] Result Comment: Diag nostic interpretation performed at [facility], [address] [place] [address] CLIA# [id number] Customer Operations Manager: Axel Romano M.D. Performed By: #### S ####[facility] [id number] [address] [id number] [address] GROSS DESCRIPTION Normal [facility] Comment on above: Order Comment: Speci men Type: TISSUE SPECIMENOrdering Facility: [facility] Address: [address] [place] [address] Result Comment: A. L ymph Node, Biopsy Received in formalin, labeled left posterior supraclavicular lymph node is a carcamo-russell, ovoid portion of tissue, consistent with possible [...] 2023 12:08 PM Gross examination performed at [facility], [address] [place] [address] Performed By: #### S ####[facility] [id number] [address] [id number] [address] MICROSCOPIC DESCRIPTION The histologic sections of [...] D1 stain shows no lymphoid staining. Normal [facility] Comment on above: Order Comment: Speci men Type: TISSUE SPECIMENOrdering Facility: [facility] Address: [address] [place] [address] Performed By: #### S ####[facility] LABCLIA [id number] [place] [id number] [facility] LABORATORYCLIA [id number] [place] [id number] [place] Basic metabolic 2000 panelon 11-17-2023 Anion gap [Moles/Vol] 8 mmol/L 8 - 15 mmol/L [facility] Calcium [Mass/Vol] 9.7 mg/dL 8.5 - 10. 2 mg/dL [facility] Chloride [Moles/Vol] 95 mmol/L Low 98 - 10 7 mmol/L [facility] CO2 [Moles/Vol] 36 mmol/L High 22 - 30 mmol/L [facility] Creatinine [Mass/Vol] 0.37 mg/dL Low 0.58 - 0.96 mg/dL [facility] GFR/1.73 sq M.predicted among non-blacks MDRD (S/P/Bld) [Vol rate/Area] 114 mL/min/{1.73_m2} - PINF [facility] Comment on above: Estimated Glomerular Filtration [...] 200 mg/dL High 74 - 99 mg/dL [facility] Comment on above: The [place] Diabete s Association (ADA) provides guidance for [...] Standards of Medical Care in Diabetes 2016, [place] Diabetes Association. Diabetes Care. 2016.39(Suppl 1). Interpretation and review of laboratory results Abnormal [facility] Potassium [Moles/Vol] 3.9 mmol/L 3.7 - 5.1 mmol/L [facility] Sodium [Moles/Vol] 139 mmol/L 136 - 144 mmol/L [facility] Urea nitrogen [Mass/Vol] 8 mg/dL 7 - 21 mg/dL [facility] Anion gap [Moles/Vol] 8 mmol/L Normal 8-15 [facility] Comment on above: Order Comment: Speci men Type: BLOOD SPECIMEN [facility] Address: [address] [place] [address] Performed By: #### 2 4321-2 #### [facility] CLIA [id number] [address] [place] [address] [place] Calcium [Mass/Vol] 9.7 mg/dL Normal 8.5-10.2 [facility] Comment on above: Order Comment: Speci men Type: BLOOD SPECIMEN [facility] Facility[facility] Address: [address] [place] [address] Performed By: #### 2 4321-2 #### [facility] CLIA [id number] [address] [place] [address] [place] Chloride [Moles/Vol] 95 mmol/L Low 98-107 [facility] Comment on above: Order Comment: Speci men Type: BLOOD SPECIMEN [facility] Address: [address] [place] [address] Performed By: #### 2 4321-2 #### [facility] CLIA [id number] [address] [place] [address] [place] CO2 [Moles/Vol] 36 mmol/L High 22-30 [facility] Comment on above: Order Comment: Speci men Type: BLOOD SPECIMEN [facility] Address: [address] [place] [address] Performed By: #### 2 4321-2 #### [facility] CLIA [id number] [address] [place] [address] [place] [place] Creatinine [Mass/Vol] 0.37 mg/dL Low 0.58-0.96 [facility] Comment on above: Order Comment: Speci men Type: BLOOD SPECIMEN Ordering Facility: [facility] Address: [address] [place] [address] Performed By: #### 2 4321-2 #### [facility] CLIA [id number] [address] Creatinine and Glomerular filtration rate.predicted panel (S/P/Bld) 114 mL/min/1.73m??? Normal >=60 [facility] Comment on above: Order Comment: Renuka lacey Type: BLOOD SPECIMEN Ordering Facility: [facility] Address: [address] [place] [address] Result Comment: Angelique mated Glomerular Filtration Rate [...] GFR. Performed By: #### 2 4321-2 #### [facility] CLIA [id number] [address] [place] Glucose [Mass/Vol] 200 mg/dL High 74-99 [facility] Comment on above: Order Comment: Renuka lacey Type: BLOOD SPECIMEN Ordering Facility: [facility] Address: [address] [place] [address] Result Comment: The [place] Diabetes Association (ADA) provides guidance for cutoff [...] Standards of Medical Care in Diabetes 2016, [place] Diabetes Association. Diabetes Care. 2016.39(Suppl 1). Performed By: #### 2 4321-2 #### [facility] CLIA [id number] [address] [place] [address] [place] Potassium [Moles/Vol] 3.9 mmol/L Normal 3.7-5.1 [facility] Comment on above: Order Comment: Speci men Type: BLOOD SPECIMEN Ordering Facility: [facility] Address: [address] [place] [address] Performed By: #### 2 4321-2 #### [facility] CLIA [id number] [address] [place] Sodium [Moles/Vol] 139 mmol/L Normal 136-144 [facility] Comment on above: Order Comment: Speci men Type: BLOOD SPECIMEN Ordering Facility: [facility] Address: [address] [place] [address] Performed By: #### 2 4321-2 #### [facility] CLIA [id number] [address] STATES [facility] Urea nitrogen [Mass/Vol] 8 mg/dL Normal 7-21 [facility] Comment on above: Order Comment: Speci men Type: BLOOD SPECIMEN Ordering Facility: [facility] Address: [address] [place] [address] Performed By: #### 2 4321-2 #### [facility] CLIA [id number] [address] [place] CBC W Auto Differential pane l (Bld)on 11-17-2023 Basophils (Bld) [#/Vol] [facility] C [facility] Basophils/100 WBC (Bld) 0.2 % [facility] Differential cell count method Nom (Bld) Auto [facility] Eosinophils (Bld) [#/Vol] NINF [facility] Eosinophils/100 WBC (Bld) 0.4 % [facility] Erythrocyte distribution width (RBC) [Ratio] 12.8 % 11.5 - 15.0 % [facility] Hematocrit (Bld) [Volume fraction] 40.3 % 36.0 - 46.0 % [facility] Hemoglobin (Bld) [Mass/Vol] 12.4 g/dL 11.5 - 15.5 g/dL [facility] Immature granulocytes (Bld) [#/Vol] NINF [facility] Immature granulocytes/100 WBC (Bld) 0.2 % [facility] Interpretation and review of laboratory results Abnormal [facility] Lymphocytes (Bld) [#/Vol] 0.31 10*3/uL Low [facility] Lymphocytes/100 WBC (Bld) 6.0 % [facility] MCH (RBC) [Entitic mass] 26.4 pg 26.0 - 34.0 pg [facility] MCHC (RBC) [Mass/Vol] 30.8 g/dL 30.5 - 36.0 g/dL [facility] MCV (RBC) [Entitic vol] 85.9 fL 80.0 - 100.0 fL [facility] Monocytes (Bld) [#/Vol] 0.06 10*3/uL [facility] Monocytes/100 WBC (Bld) 1.2 % [facility] Neutrophils (Bld) [#/Vol] 4.76 10*3/uL [facility] Neutrophils/100 WBC (Bld) 92.0 % [facility] Nucleated RBC (Bld) [#/Vol] NINF [facility] Nucleated RBC/100 WBC (Bld) [Ratio] 0.0 % /100 WBC [facility] Platelet mean volume (Bld) [Entitic vol] 9.0 fL 9.0 - 12.7 fL [facility] Platelets (Bld) [#/Vol] 286 10*3/uL [facility] RBC (Bld) [#/Vol] 4.69 10*6/uL 3.90 - 5.2 0 m/uL [facility] WBC (Bld) [#/Vol] 5.17 10*3/uL [facility] Basophils (Bld) [#/Vol] 10*3/uL Normal <0.11 [facility] Comment on above: Order Comment: Speci men Type: BLOOD SPECIMEN Ordering Facility: [facility] Address: [address] [place] [address] Performed By: #### 5 7021-8 #### [facility] CLIA [id number] [address] [place] [address] Basophils/100 WBC (Bld) 0.2 % Normal [facility] Comment on above: Order Comment: Speci men Type: BLOOD SPECIMEN Ordering Facility: [facility] Address: [address] [place] [address] Performed By: #### 5 7021-8 #### [facility] CLIA [id number] [address] [place] Differential cell count method Nom (Bld) Auto Normal [facility] Comment on above: Order Comment: Speci men Type: BLOOD SPECIMEN Ordering Facility: [facility] Address: [address] [place] [address] Performed By: #### 5 7021-8 #### [facility] CLIA [id number] [address] [place] [address] [place] Eosinophils (Bld) [#/Vol] 10*3/uL Normal <0.46 [facility] Comment on above: Order Comment: Speci men Type: BLOOD SPECIMEN Ordering Facility: [facility] Address: [address] [place] [address] Performed By: #### 5 7021-8 #### [facility] CLIA [id number] [address] [place] Eosinophils/100 WBC (Bld) 0.4 % Normal [facility] Comment on above: Order Comment: Speci men Type: BLOOD SPECIMEN Ordering Facility: [facility] Address: [address] [place] [address] Performed By: #### 5 7021-8 #### [facility] CLIA [id number] [address] [place] Erythrocyte distribution width (RBC) [Ratio] 12.8 % Normal 11.5-15.0 [facility] Comment on above: Order Comment: Speci men Type: BLOOD SPECIMEN Ordering Facility: [facility] Address: [address] [place] [address] Performed By: #### 5 7021-8 #### [facility] CLIA [id number] [address] [place] Hematocrit (Bld) [Volume fraction] 40.3 % Normal 36.0-46.0 [facility] Comment on above: Order Comment: Speci men Type: BLOOD SPECIMEN Ordering Facility: [facility] Address: [address] [place] [address] Performed By: #### 5 7021-8 #### [facility] CLIA [id number] [address] [place] Hemoglobin (Bld) [Mass/Vol] 12.4 g/dL Normal 11.5-15.5 [facility] Comment on above: Order Comment: Speci men Type: BLOOD SPECIMEN Ordering Facility: [facility] Address: [address] [place] [address] Performed By: #### 5 7021-8 #### [facility] CLIA [id number] [address] [place] [address] [place] Immature granulocytes (Bld) [#/Vol] 10*3/uL Normal <0.10 [facility] Comment on above: Order Comment: Speci men Type: BLOOD SPECIMEN Ordering Facility: [facility] Address: [address] [place] [address] Performed By: #### 5 7021-8 #### [facility] CLIA [id number] [address] Immature granulocytes/100 WBC (Bld) 0.2 % Normal [facility] Comment on above: Order Comment: Speci men Type: BLOOD SPECIMEN Ordering Facility: [facility] Address: [address] [place] [address] Performed By: #### 5 7021-8 #### [facility] CLIA [id number] [address] [place] Lymphocytes (Bld) [#/Vol] 0.31 10*3/uL Low 1.00-4.00 [facility] Comment on above: Order Comment: Speci men Type: BLOOD SPECIMEN Ordering Facility: [facility] Address: [address] [place] [address] Performed By: #### 5 7021-8 #### [facility] CLIA [id number] [address] Lymphocytes/100 WBC (Bld) 6.0 % Normal [facility] Comment on above: Order Comment: Speci men Type: BLOOD SPECIMEN Ordering Facility: [facility] Address: [address] [place] [address] Performed By: #### 5 7021-8 #### [facility] CLIA [id number] [address] MCH (RBC) [Entitic mass] 26.4 pg Normal 26.0-34.0 [facility] Comment on above: Order Comment: Speci men Type: BLOOD SPECIMEN Ordering Facility: [facility] Address: [address] [place] [address] Performed By: #### 5 7021-8 #### [facility] CLIA [id number] [address] MCHC (RBC) [Mass/Vol] 30.8 g/dL Normal 30.5-36.0 [facility] Comment on above: Order Comment: Speci men Type: BLOOD SPECIMEN Ordering Facility: [facility] Address: [address] [place] [address] Performed By: #### 5 7021-8 #### [facility] CLIA [id number] [address] MCV (RBC) [Entitic vol] 85.9 fL Normal 80.0-100.0 [facility] Comment on above: Order Comment: Speci men Type: BLOOD SPECIMEN Ordering Facility: [facility] Address: [address] [place] [address] Performed By: #### 5 7021-8 #### [facility] CLIA [id number] [address] Monocytes (Bld) [#/Vol] 0.06 10*3/uL Normal <0.87 [facility] Comment on above: Order Comment: Speci men Type: BLOOD SPECIMEN Ordering Facility: [facility] Address: [address] [place] [address] Performed By: #### 5 7021-8 #### [facility] CLIA [id number] [address] Monocytes/100 WBC (Bld) 1.2 % Normal [facility] Comment on above: Order Comment: Speci men Type: BLOOD SPECIMEN Ordering Facility: [facility] Address: [address] [place] [address] Performed By: #### 5 7021-8 #### [facility] CLIA [id number] [address] [place] [address] [place] Neutrophils (Bld) [#/Vol] 4.76 10*3/uL Normal 1.45-7.50 [facility] Comment on above: Order Comment: Speci men Type: BLOOD SPECIMEN Ordering Facility: [facility] Address: [address] [place] [address] Performed By: #### 5 7021-8 #### [facility] CLIA [id number] [address] [place] [address] [place] Neutrophils/100 WBC (Bld) 92.0 % Normal [facility] Comment on above: Order Comment: Speci men Type: BLOOD SPECIMEN Ordering Facility: [facility] Address: [address] [place] [address] Performed By: #### 5 7021-8 #### [facility] CLIA [id number] [address] [place] Nucleated RBC (Bld) [#/Vol] 10*3/uL Normal <0.01 [facility] Comment on above: Order Comment: Speci men Type: BLOOD SPECIMEN Ordering Facility: [facility] Address: [address] [place] [address] Performed By: #### 5 7021-8 #### [facility] CLIA [id number] [address] [facility] Nucleated RBC/100 WBC (Bld) [Ratio] 0.0 /100 WBC Normal [facility] Comment on above: Order Comment: Speci men Type: BLOOD SPECIMEN Ordering Facility: [facility] Address: [address] [place] [address] Performed By: #### 5 7021-8 #### [facility] CLIA [id number] [address] [place] Platelet mean volume (Bld) [Entitic vol] 9.0 fL Normal 9.0-12.7 [facility] Comment on above: Order Comment: Speci men Type: BLOOD SPECIMEN Ordering Facility: [facility] Address: [address] [place] [address] Performed By: #### 5 7021-8 #### [facility] CLIA [id number] [address] [place] Platelets (Bld) [#/Vol] 286 10*3/uL Normal 150-400 [facility] Comment on above: Order Comment: Speci men Type: BLOOD SPECIMEN Ordering Facility: [facility] Address: [address] [place] [address] Performed By: #### 5 7021-8 #### [facility] CLIA [id number] [address] RBC (Bld) [#/Vol] 4.69 10*6/uL Normal 3.90-5.[address] [facility] Comment on above: Order Comment: Speci men Type: BLOOD SPECIMEN Ordering Facility: [facility] Address: [address] [place] [address] Performed By: #### 5 7021-8 #### [facility] CLIA [id number] [address] [facility] WBC (Bld) [#/Vol] 5.17 10*3/uL Normal 3.70-11.[address] [facility] Comment on above: Order Comment: Speci men Type: BLOOD SPECIMEN Ordering Facility: [facility] Address: [address] [place] [address] Performed By: #### 5 7021-8 #### [facility] CLIA [id number] [address] ECG COMPLETEon 11-17-2023 ECG COMPLETE Ventricular Rate : 1 15 BPM Atrial Rate : 115 BPM P-R Interval : 158 ms QRS Duration : 74 ms Q-T Interval : 312 ms QTC Calculation(Bazett) : 431 ms Calculated P Paxton : 94 degrees Calculated R Paxton : 84 degrees Calculated T Paxton : 88 degrees SINUS TACHYCARDIA RIGHT ATRIAL ENLARGEMENT MINIMAL VOLTAGE CRITERIA FOR LVH, MAY BE NORMAL VARIANT BORDERLINE ECG NO PREVIOUS ECGS AVAILABLE Confirmed by MD BLAND GREGORY () on 11/18/2023 7:35:32 AM NAME : CINTHIA GUERRERO PID : [id number] : 1960 Gender : Female Race : ORD : [id number] Procedure Date : Nov 17 2023 14:38:04 Edit Date : Nov 18 2023 07:35:34 Diagnosis: SINUS TACHYCARDIA RIGHT ATRIAL ENLARGEMENT MINIMAL VOLTAGE CRITERIA FOR LVH, MAY BE NORMAL VARIANT BORDERLINE ECG NO PREVIOUS ECGS AVAILABLE Confirmed by MD BLAND GREGORY () on 11/18/2023 7:35:32 AM Test Reason : [facility]CS Location : [address] [place] [address] Overread By : MD BLAND GREGORY Edited By : MD BLAND GREGORY Referred By : TEO CRAFT Acquired by : SANDI [facility] HISTORY PHYSICALon HISTORY PHYSICAL HNO ID: [id number] Author: BRIE KAUR PA-C Service: ? Author Type: Physician Vehicle Trimmer Type: H&P Filed: 11/17/2023 15:34 Note Text: [...] via [place]. Follows with outside pulm at [facility], Dr. Valery DAVIS in October per pt. Diminished breath sounds bilaterally throughout, no wheezing. SpO2 95% on 2L O2. Pt reports that she started prednisone taper from her nurse outreach case manager today, currently taking prednisone 40 mg. Pt reports she called nurse outreach case manager's office because she felt like her breathing [...] large neck Non-male patient STOP-Bang Score: 1 [id number] Score: Age: <65 Sex: female CHF history: No Hypertension history: No Stroke/TIA/thromboembo lism history: No Vascular disease history: No Diabetes history: No [id number]-DLEj Score: 1 ANESTHESIA FINDINGS: Intubation History: No [...] Initiated: Orders placed by surgeon/surgical service in [facility]. Orders Placed This Encounter Complete Blood [...] currently 12/16/23 i (more content not included)... [facility] 11-16-2023 [facility] Telephone (RADTSA) CINTHIA GUERRERO ([id number]) 1960 F Date Time Provider Department 11/16/23 ABDI [place]RA[place] During your visit today, we recorded the following information about you: Silvia Jha RN 11/16/2023 9:51 AM Signed Pt called [...] her again. She would appreciate a call [facility]. Thank you Abdi Israel MD 11/16/2023 5:41 PM Signed Spoke with Ms. Guerrero ... Will plan for a CT chest after she is recovered from her procedure and path is final. Thanks! Julisa Strickland LPN 11/27/2023 2:57 PM Signed Rodney: [...] lung (HCC) [C34.90] Order(s):NM PET/CT SKULL-THIGH SUBSEQUENT [2070503] Order #: [id number] FUTURE CT CHEST W IVCON [[id number]] Order #: [id number] FUTURE [] iv contrast (will be provided [...] Encounter Status:Closed by SILVIA JHA on 12/09/23 [facility] CNАлександр 10-27-2023 CNOV Office Visit (OTOLMN ) CINTHIA GUERRERO ([id number]) 1960 F Date Time Provider Department 10/27/23 11:00 AM TEO CRAFT OTOLMN During your visit today, we recorded the following information about you: Asha RodneyGARY 10/27/2023 11:27 AM Signed Tobacco Use: 1.5 packs/day, for 35 years. Quit 04/13/2012. Types: Cigarettes Was smoking cessation packet given? N/A - Patient is a non-smoker or quit >1 year ago. Was a referral initiated?N/A Patient is a non-smoker Teo Craft MD 12/07/2023 12:32 AM Signed [facility] This consult was requested by [...] IX, X: (more content not included)... Normal [facility] US NECK (POC) HNI USE ONLYon 10-27-2023 [facility] Radiology Study observation (narrative) [facility] CNP[facility] Telephone (NCCAP) CINHTIA GUERRERO ([id number]) 1960 F Date Time Provider Department 09/21/23 ABDI [place] During your visit today, we recorded the following information about you: Rodney Rinaldi 09/21/2023 7:17 AM Signed Abdi Israel MD Stock, Khushboo Linda MD, Cc: Julisa Pressley, STACIE; Silvia Jha, LUCIE; Rodney Rinaldi Co Dr. Mcintyre - I appreciate the update [...] consult can be done. Thank you! LUCIE Mchuhg Tiffany 09/25/2023 7:21 AM Signed Email sent [...] node (HCC) [C77.0] Order(s):BIOPSY/REMOVA L, LYMPH NODE(S) [59262RAK] Order #: [id number] CONSULT TO ENT [9008] Order #: [id number]: 1 FUTURE Prescriptions as of 09/30/2023 - [...] Encounter Status:Closed by RODNEY RINALDI on 09/30/23 [facility] BRIEF OP NOTon 09-16-2023 BRIEF OP NOT HNO ID: [id number] Author: KHUSHBOO MCINTYRE MD Service: Radiology Author Type: Physician Type: Brief Op Note Filed: 09/16/2023 11:09 Note Text: Summary: Left cervical lymph node biopsy BRIEF OPERATIVE / PROCEDURE NOTE LOG ID: [id number] SURGERY/PROCEDURE DATE: 09/16/2023 INCISION/PROCEDURE START TIME: 10:42 AM INCISION CLOSE/PROCEDURE END TIME: 11:02 AM SURGEON(S)/PROCEDURALI ST(S) AND TRUCK LEASING MANAGER(S): Surgeon(s) and Role: * Khushboo Mcintyre [...] DATE: September 16, 2023 TIME: 11:06 AM [facility] NURSING PROGon 09-16-2023 NURSING PROG HNO ID: [id number] Author: YAKELIN REILLY RN Service: ? Author Type: Registered Nurse Type: Nursing Progress Note Filed: 09/17/2023 08:20 Note Text: Completed post procedure phone call. Omaira is feeling well and has returned to her baseline diet and activity. Omaira denies questions or concerns related to her biopsy appointment on 09/16/23 and had no surgical site concerns. Normal [facility] PT EDon 09-16-2023 PT ED HNO ID: [id number] Author: RASHID HOWELL RN Service: ? Author [...] RN In Department: HOSP MAIN FB36 Normal [facility] SURGICAL PATHOLOGYon CASE REPORT Normal [facility] Comment on above: Order Comment: Speci men Type: TISSUE SPECIMENOrdering Facility: [facility] Address: [address] [place] [address] Result Comment: Surg ical Pathology Report Case: [id number] Authorizing Provider: Khushboo Mcintyre MD, MD Collected: 09/16/2023 10:48 AM Ordering Location: [place] [address] Received: 09/16/2023 04:42 PM Pathologist: Tucker Mulligan V, MD Specimen: Lymph Node, Biopsy, left level 5 Performed By: #### S ####[facility] [id number] [address] [place] CLINICAL HISTORY history of lung ca Normal [facility] Comment on above: Order Comment: Speci men Type: TISSUE SPECIMENOrdering Facility: [facility] Address: [address] [place] [address] Performed By: #### S ####[facility] [id number] [address] [place] DIAGNOSIS COMMENT Normal [facility] Comment on above: Order Comment: Speci men Type: TISSUE SPECIMENOrdering Facility: [facility] Address: [address] [place] [address] Result Comment: Immu nohistochemical stains were performed [...] been determined by the performing laboratory within [facility]???s [facility] Pathology and Laboratory Medicine Department ([facility], [facility][1], [facility], [facility], [facility], [facility], or [facility]) in a manner consistent with CLIA requirements. One or more of these tests have not been cleared or approved by the FDA. [facility] is regulated under CLIA as qualified to perform high-complexity testing. These tests are used for clinical purposes. They should not be regarded as investigational or for research. Positive and negative controls stain appropriately. Performed By: #### S ####[facility] [id number] [address] OF [facility] FINAL DIAGNOSIS Normal [facility] Comment on above: Order Comment: Speci men Type: TISSUE SPECIMENOrdering Facility: [facility] Address: [address] [place] [address] Result Comment: Lymp h node, left level 5, biopsy: - Fragments of lymphoid tissue; negative for neoplasm (see comment). [place]/ 09/17/2023 Performed By: #### S ####[facility] [id number] [address] OF [facility] FINAL PERFORMING LAB Normal [facility] Comment on above: Order Comment: Speci men Type: TISSUE SPECIMENOrdering Facility: [facility] Address: [address] [place] [address] Result Comment: Diag nostic interpretation performed at [facility], [address] [place] [address] CLIA# [id number] Customer Operations Manager: Axel Romano M.D. Performed By: #### S ####[facility] [id number] [address] STATES OF [facility] GROSS DESCRIPTION Normal [facility] Comment on above: Order Comment: Speci men Type: TISSUE SPECIMENOrdering Facility: [facility] Address: [address] [place] [address] Result Comment: A. L ymph Node, Biopsy Received in formalin are multiple segments of cylindrical tissue 1.3 x 0.2 x 0.1 cm, carcamo and of a soft and friable consistency. Totally submitted in one cassette. Gross examination performed at [facility], [address] [place] [address] September 16, 2023 7:23 PM Performed By: #### S ####[facility] [id number] [place] [address] [place] US BIOPSY CERVICAL LYMPH NOD Archie 09-16-2023 US BIOPSY CERVICAL LYMPH NODE * * *Final Report* * * DATE OF EXAM: Sep 16 2023 2:45PM [facility] - US BIOPSY CERVICAL LYMPH NODE [...] lung cancer. STAFF RADIOLOGIST: Dr. Lopez Mcintyre TRUCK LEASING MANAGER(S): None CONSENT: Informed consent was obtained for this procedure. Details of informed consent can be found in [facility] under the consent tab. TIME OUT: [...] performed by the: attending radiologist, without an logging assistant. The attending radiologist performed the following [...] IMPRESSION: ULTRASOUND GUIDED BIOPSY DESCRIBED v 05/25/18 Production Cook: EVELYN Transcribe Date/Time: Sep 16 2023 4:33P Dictated by : KHUSHBOO MCINTYRE MD This examination was interpreted and the report reviewed and electronically signed by: KHUSHBOO MCINTYRE MD on Sep 20 2023 4:11PM EST [id number] Normal [facility] CBC panel Auto (Bld)on 09-13 Erythrocyte distribution width (RBC) [Ratio] 13.2 % Normal 11.5-15.0 [facility] Comment on above: Order Comment: Speci men Type: BLOOD SPECIMENOrdering Facility: [facility] Address: [address] [place] [address] Performed By: #### 5 8410-2 ####[facility]IA [id number] [place] [address] Hematocrit (Bld) [Volume fraction] 38.5 % Normal 36.0-46.0 [facility] Comment on above: Order Comment: Speci men Type: BLOOD SPECIMENOrdering Facility: [facility] Address: [address] [place] [address] Performed By: #### 5 8410-2 ####[facility]IA [id number] [place] [address] Hemoglobin (Bld) [Mass/Vol] 11.8 g/dL Normal 11.5-15.5 [facility] Comment on above: Order Comment: Speci men Type: BLOOD SPECIMENOrdering Facility: [facility] Address: [address] [place] [address] Performed By: #### 5 8410-2 ####[facility]IA [id number] [place] [address] MCH (RBC) [Entitic mass] 27.2 pg Normal 26.0-34.0 [facility] Comment on above: Order Comment: Speci men Type: BLOOD SPECIMENOrdering Facility: [facility] Address: [address] [place] [address] Performed By: #### 5 8410-2 ####[facility] LABCLIA [id number] [place] [address] MCHC (RBC) [Mass/Vol] 30.6 g/dL Normal 30.5-36.0 [facility] Comment on above: Order Comment: Speci men Type: BLOOD SPECIMENOrdering Facility: [facility] Address: [address] [place] [address] Performed By: #### 5 8410-2 ####[facility] LABCLIA [id number] [place] [address] MCV (RBC) [Entitic vol] 88.7 fL Normal 80.0-100.0 [facility] Comment on above: Order Comment: Speci men Type: BLOOD SPECIMENOrdering Facility: [facility] Address: [address] [place] [address] Performed By: #### 5 8410-2 ####[facility] LABIA [id number] [place] [address] Nucleated RBC (Bld) [#/Vol] 10*3/uL Normal <0.01 [facility] Comment on above: Order Comment: Speci men Type: BLOOD SPECIMENOrdering Facility: [facility] Address: [address] [place] [address] Performed By: #### 5 8410-2 ####[facility] LABIA [id number] [place] [address] Platelet mean volume (Bld) [Entitic vol] 8.9 fL Low 9.0-12.7 [facility] Comment on above: Order Comment: Speci men Type: BLOOD SPECIMENOrdering Facility: [facility] Address: [address] [place] [address] Performed By: #### 5 8410-2 ####[facility] LABIA [id number] [place] [address] Platelets (Bld) [#/Vol] 288 10*3/uL Normal 150-400 [facility] Comment on above: Order Comment: Speci men Type: BLOOD SPECIMENOrdering Facility: [facility] Address: [address] [place] [address] Performed By: #### 5 8410-2 ####[facility] LABCLIA [id number] [place] [address] RBC (Bld) [#/Vol] 4.34 10*6/uL Normal 3.90-5.20 [facility] Comment on above: Order Comment: Speci men Type: BLOOD SPECIMENOrdering Facility: [facility] Address: [address] [place] [address] Performed By: #### 5 8410-2 ####[facility] LABCLIA [id number] [place] [address] WBC (Bld) [#/Vol] 7.28 10*3/uL Normal 3.70-11.00 [facility] Comment on above: Order Comment: Speci men Type: BLOOD SPECIMENOrdering Facility: [facility] Address: [address] [place] [address] Performed By: #### 5 8410-2 ####[facility] LABCLIA [id number] [place] [address] NURSING PROGon 09-14-2023 NURSING PROG HNO ID: [id number] Author: YAKELIN ONOFRE LPN Service: ? Author Type: LICENSED NURSE Type: Nursing Progress Note Filed: 09/14/2023 10:55 Note Text: Pre- e instructions: Address: [facility] Toshia Zavaleta Contacted patient and confirmed appt. for biopsy scheduled on 09/16/23, at [facility]. Diet: Procedure to be done with local anesthetic, you may eat, drink and take medications as prescribed the day of this procedure. Medications: IF ok with your Prescribing Provider: RADIOLOGY RECOMMENDS THESE MEDICATION RESTRICTIONS : None Labs: Lab work needs to be drawn by 09/15/23 at any [facility]. Arrival: Please bring your Photo ID and Insurance Card. A general consent may need to be signed. Arrival at 8:30am to desk QB-1 ([facility]) and check in for your procedure. Automation Qa Tester/Transportation: Automation Qa Tester not necessary Written instructions provided to patient via [employer] If you have any questions please call [phone] Normal [facility] CNPNon 09-08-2023 CNPN Telephone (IRRFV) CINTHIA GUERRERO ([id number]) 1960 F Date Time Provider Department 09/08/23 ABDI ISRAEL IRRFV During your visit today, we recorded the following information about you: Chloe Nicole 09/08/2023 10:45 AM Signed RADIOLOGY CALL CENTER INTAKE DATE: 09/08/2023 TIME: 10:44am REQUESTING STAFF: Abdi Israel MD PHONE/PAGER: [phone] SPECIFICS OF THE REQUEST:Cervical lymph node bx SPECIAL REQUESTS: TISSUE SAMPLE, LABWORK: N/A IS THIS REQUEST PART OF A RESEARCH PROTOCOL: No MEDICAL DIAGNOSIS: Malignant neoplasm of unspecified part of unspecified bronchus or lung (HCC) [C34.90] TYPE AND DATE OF THE EXAM THAT IS THE BASIS OF THE REQUEST: PET 09/01/2023 IMAGING: [facility] Note to all persons requesting biopsies: All biopsy requests will be scheduled as quickly as possible, based on the clinical urgency, availability of appointment times, the need to hold anti-thrombolytic therapy (aspirin, blood thinners) and the patient?s schedule, including the need for an available new autos delivery driver. If a percutaneous biopsy or drainage [...] this procedure: intermediate-high risk. Reference from [facility] [employer]: [email or web address] [email or web address]/documents/ ?[email or web address] STAFF SIGNATURE: Osito Galicia MD DATE: September 09, 2023 TIME: 9:31 AM Neha Leyva 09/14/2023 10:17 AM Signed Spoke to pt and scheduled biopsy for 09/16/23. Allergies As of Date: 09/08/2023 (No Known Allergies) Date Reviewed: 05/25/2023 Reviewed by: Julisa Pressley LPN - Fully [...] PEDIATRIC ASTHMA Inhale (more content not included)... [facility] CNPN Telephone (NCCAP) CINTHIA GUERRERO ([id number]) 1960 F Date Time Provider Department 09/08/23 ABDI ISRAEL During your visit today, we recorded the following information about you: Rodney Rinaldi 09/08/2023 7:24 AM Signed Abdi Israel MD Graves, Ariana, LPN Cc: Silvia Jha RN; Rodney Rinaldi Please set Ms. Cesar up for an US guided biopsy of one of the lymph nodes in the neck seen on PET CT at either [facility] or [place]. Thanks! Abdi Nicolas MD 09/08/2023 9:51 AM [...] Known Allergies) Date Reviewed: 05/25/2023 Reviewed by: Julisa Pressley LPN - Fully [...] Status:Closed by RODNEY RINALDI on 09/14/23 Normal [facility] PET+CT Guidance for localiza tion of [...] any questions regarding this interpretation, please call [phone]. If you are unable to reach us at the number above, please feel free to contact [facility] eRadiology at [phone]. DIVISION OF RADIOLOGY * * *Final Report* [...] * Radiopharmaceutical Dose: 6.6 mCi * Radiopharmaceutical: K73-Gbbddmhfxaakggbgqu (FDG) COMPARISON: PET/CT 03/07/2022 CORRELATION: CT 08/13/23 RESULT: REFERENCES: SUV reference values: * Blood pool (descending aorta) activity: SUVmax 1.8 * Background liver activity: SUVmax 2.2; SUVmean 1.6 Form Setter Helper (topogram) images: No additional findings Notes and [...] No abnormal uptake. DIVISION OF RADIOLOGY Provider, [facility] - 09/05/2023 * * *Final Report* * [...] * Radiopharmaceutical Dose: 6.6 mCi * Radiopharmaceutical: L15-Vbhidpqvuiykpqdmfo (FDG) COMPARISON: PET/CT 03/07/2022 CORRELATION: CT 08/13/23 RESULT: REFERENCES: SUV reference values: * Blood pool (descending aorta) activity: SUVmax 1.8 * Background liver activity: SUVmax 2.2; SUVmean 1.6 Form Setter Helper (topogram) images: No additional findings Notes and [...] any questions regarding this interpretation, please call [phone]. If you are unable to reach us at the number above, please feel free to contact [facility] eRadiology at [phone]. [facility] PET+CT Guidance for localiza tion of tumor of Skull base to mid-thigh-- W 18F-FDG IVOrdered By: [facility] Provider on 09-05-2023 [facility] CONSULT PROGon 09-01-2023 CONSULT PROG HNO ID: [id number] Author: STACIA IRVING RN Service: ? Author [...] SITE APPEARANCE: Clean,Dry and Intact SIGNATURE: Stacia Irvign RN PATIENT NAME: CINTHIA Guerrero DATE: September 01, 2023 TIME: 12:54 PM Normal [facility] GLUCOSE, BLOOD (POC)on 08-31 Glucose [Mass/Vol] 95 mg/dL 74 - 99 mg/dL [facility] Comment on above: Location:[facility], [address] [place] [address] , [place], [place], [facility] The Accu-Chek Inform II glucose meter [...] blood gas instrument) in the above situations. [facility] NM PET/CT SKULL-THIGH SUBQon 09-01-2023 MD PET/CT SKULL-THIGH SUBQ * * *Final Report* * * DATE OF EXAM: Sep 01 2023 2:00PM NRN 0063 - MD PET/CT SKULL-THIGH SUBQ / PROCEDURE REASON: Malignant [...] * Radiopharmaceutical Dose: 6.6 mCi * Radiopharmaceutical: Q72-Ebttseeyovqrwcuppi (FDG) COMPARISON: PET/CT 03/07/2022 CORRELATION: CT 08/13/23 RESULT: REFERENCES: SUV reference values: * Blood pool (descending aorta) activity: SUVmax 1.8 * Background liver activity: SUVmax 2.2; SUVmean 1.6 Form Setter Helper (topogram) images: No additional findings Notes and [...] any questions regarding this interpretation, please call [phone]. If you are unable to reach us at the number above, please feel free to contact [facility] eRadiology at [phone]. [id number] Normal [facility] PET+CT Guidance for localiza tion of tumor of Skull base to mid-thigh-- W 18F-FDG Angelita 09-01-2023 Radiology Study observation [facility]narrative) [facility] CNPNon 08-14-2023 CNPN Telephone (RADTSA) CINTHIA GUERRERO ([id number]) 1960 F Date Time Provider Department 08/14/23 ABDI ISRAEL During your visit today, we recorded the following information about you: Silvia Jha RN 08/14/2023 9:34 AM Signed Pt called in to let us know she had a CT at [facility] ordered per Dr Kenyon yesterday. He called her today to let her know that there was something concerning and he wanted her to contact our office. CT report printed from [facility] and images requested. Dr Israel- please advise [...] arrange PET here. Thank you LUCIE Mchugh Rodney 08/17/2023 1:18 PM Signed Called patient and left message with date and time of Time, due to her insurance It has to be put out 2 weeks I told her to please call me back if she has any questions thank you. Robb Lowe Rodney 08/18/2023 9:15 AM Signed Seen patient checked her mychart yesterday for appointments. Allergies As of Date: 08/14/2023 (No Known Allergies) Date Reviewed: 05/25/2023 Reviewed by: Julisa Pressley LPN - Fully Assessed Reason for Visit: Patient Update [1234] Primary Visit Diagnosis:Malignant neoplasm of unspecified part of unspecified bronchus or lung (HCC) [C34.90] Order(s):NM PET/CT SKULL-THIGH SUBSEQUENT [[id number]] Order #: [id number] FUTURE Prescriptions as of 08/18/2023 - iv [...] Encounter Status:Closed by SILVIA JHA on 08/18/23 [facility] CNOVon 05-25-2023 CNOV Office Visit (RADTSA ) CINTHIA GUERRERO ([id number]) 1960 F Date Time Provider Department 05/25/23 [...] COPD, who is diagnosed with Stage IA3, [id number], non-small cell lung cancer arising from a [...] remains on supplemental oxygen at 2 L/min wofywc-xaq-gtomt and continues on Pulmicort and albuterol rescue inhaler. He denies cough or hemoptysis or chest pain or difficulty swallowing today. She does note fatigue with stable appetite and hydration. She notes that she is in process of transitioning nurse outreach case manager. She otherwise denies any recent fevers, chills, [...] COPD, who is diagnosed with Stage IA3, [id number], non-small cell lung cancer arising from a [...] in the process of transitioning care between nurse outreach case manager. She had repeat CT imaging of the [...] which included preparing to see the patient, huur-wh-wead patient care, and counseling and educating the patient/family/careg (more content not included)... Normal [facility] CNPHiwot 05-20-2023 CNPN Telephone (WelloA) CINTHIA GUERRERO ([id number]) 1960 F Date Time Provider Department 05/20/23 ABDI ISRAEL During your visit today, we recorded the following information about you: Silvia Jha RN 05/20/2023 9:55 AM Signed Pt called in and was admitted to [facility] last week. They did CT Chest. She has been waiting on insurance approval for a chest CT and will not need one now. She would like follow up arranged. Reports printed from [facility] and images requested. PSS- please call pt and arrange follow up with Dr Israel for next week. Thank you Silvia Jha RN Rodney Rinaldi 05/20/2023 9:59 AM Signed Patient is called [...] Status:Closed by SILVIA JHA on 05/20/23 Normal [facility] Complete Blood Count Auto Di ffon 05-15-2023 Basophils (Bld) [#/Vol] 0.0 10*3/uL Normal 0.0-0.2 [facility] Comment on above: Result Comment: PERF ORMED BY: [place] [address] PATHOLOGIST AIR AND HYDRONIC BALANCING TECHNICIAN JASMEET LIN M.D. Performed By: #### C MP, CBC, HS TROP, TSH3 wRFLX #### [address] Basophils/100 WBC (Bld) 0.3 % Normal . T elin [facility] Comment on above: Performed By: #### C MP, CBC, HS TROP, TSH3 wRFLX #### [address] Eosinophils (Bld) [#/Vol] 0.0 10*3/uL Normal 0.0-0.45 [facility] Comment on above: Performed By: #### C MP, CBC, HS TROP, TSH3 wRFLX #### [address] Eosinophils/100 WBC (Bld) 0.0 % Normal . [facility] Comment on above: Performed By: #### C MP, CBC, HS TROP, TSH3 wRFLX #### [address] Erythrocyte distribution width (RBC) [Ratio] 13.5 % Normal 11.9-15.3 [facility] Comment on above: Performed By: #### C MP, CBC, HS TROP, TSH3 wRFLX #### [address] Hematocrit (Bld) [Volume fraction] 42.0 % Normal 34.0-46.4 [facility] Comment on above: Performed By: #### C MP, CBC, HS TROP, TSH3 wRFLX #### [address] Hemoglobin (Bld) [Mass/Vol] 13.9 g/dL Normal 11.8-15.4 [facility] Comment on above: Performed By: #### C MP, CBC, HS TROP, TSH3 wRFLX #### [address] Lymphocytes (Bld) [#/Vol] 0.6 10*3/uL Low 1.00-4.8 [facility] Comment on above: Performed By: #### C MP, CBC, HS TROP, TSH3 wRFLX #### [address] Lymphocytes/100 WBC (Bld) 8.4 % Normal . [facility] Comment on above: Performed By: #### C MP, CBC, HS TROP, TSH3 wRFLX #### [address] MCH (RBC) [Entitic mass] 28.0 pg Normal 24.7-34.3 [facility] Comment on above: Performed By: #### C MP, CBC, HS TROP, TSH3 wRFLX #### [address] MCV (RBC) [Entitic vol] 84.8 fL Normal 80-100 T he [facility] Comment on above: Performed By: #### C MP, CBC, HS TROP, TSH3 wRFLX #### [address] Mean Corpuscular HGB Conc 33.0 g/dL Normal 32.0-35.0 [facility] Comment on above: Performed By: #### C MP, CBC, HS TROP, TSH3 wRFLX #### [address] Monocytes (Bld) [#/Vol] 0.4 10*3/uL Normal 0.0-0.8 [facility] Comment on above: Performed By: #### C MP, CBC, HS TROP, TSH3 wRFLX #### [address] Monocytes/100 WBC (Bld) 4.9 % Normal . T he [facility] Comment on above: Performed By: #### C MP, CBC, HS TROP, TSH3 wRFLX #### [address] Neutrophils (Bld) [#/Vol] 6.6 10*3/uL Normal 1.8-7.7 [facility] Comment on above: Performed By: #### C MP, CBC, HS TROP, TSH3 wRFLX #### [address] Neutrophils/100 WBC (Bld) 86.4 % Normal . [facility] Comment on above: Performed By: #### C MP, CBC, HS TROP, TSH3 wRFLX #### [address] NRBC% 0.0 /100{WBC} Normal 0-0.5 [facility] Comment on above: Performed By: #### C MP, CBC, HS TROP, TSH3 wRFLX #### [address] Platelet mean volume (Bld) [Entitic vol] 7.3 fL Normal 6.3-10.7 [facility] Comment on above: Performed By: #### C MP, CBC, HS TROP, TSH3 wRFLX #### [place] [address] [place] Platelets (Bld) [#/Vol] 378 10*3/uL Normal 150-450 [facility] Comment on above: Performed By: #### C MP, CBC, HS TROP, TSH3 wRFLX #### [address] RBC (Bld) [#/Vol] 4.95 10*6/uL Normal 3.60-5.00 [facility] Comment on above: Performed By: #### C MP, CBC, HS TROP, TSH3 wRFLX #### [address] WBC (Bld) [#/Vol] 7.6 10*3/uL Normal 3.8-11.6 [facility] Comment on above: Performed By: #### C MP, CBC, HS TROP, TSH3 wRFLX #### [address] Comprehensive Metabolic Pane shelby 05-15-2023 Albumin [Mass/Vol] 4.0 g/dL Normal 3.5-5.7 [facility] Comment on above: Performed By: #### C MP, CBC, HS TROP, TSH3 wRFLX #### [address] Albumin/Globulin [Mass ratio] 1.3 {ratio} Normal [facility] Comment on above: Performed By: #### C MP, CBC, HS TROP, TSH3 wRFLX #### [address] ALP [Catalytic activity/Vol] 68 U/L Normal 34-104 [facility] Comment on above: Performed By: #### C MP, CBC, HS TROP, TSH3 wRFLX #### [address] ALT [Catalytic activity/Vol] 13 U/L Normal 7-52 [facility] Comment on above: Performed By: #### C MP, CBC, HS TROP, TSH3 wRFLX #### [address] Anion gap [Moles/Vol] 6.9 mmol/L Normal 6.0-15.0 [facility] Comment on above: Performed By: #### C MP, CBC, HS TROP, TSH3 wRFLX #### [address] AST [Catalytic activity/Vol] 16 U/L Normal 13-39 [facility] Comment on above: Performed By: #### C MP, CBC, HS TROP, TSH3 wRFLX #### [address] Bilirubin [Mass/Vol] 0.4 mg/dL Normal 0.3-1.0 [facility] Comment on above: Performed By: #### C MP, CBC, HS TROP, TSH3 wRFLX #### [address] Calcium [Mass/Vol] 9.7 mg/dL Normal 8.6-10.3 [facility] Comment on above: Performed By: #### C MP, CBC, HS TROP, TSH3 wRFLX #### [address] Chloride [Moles/Vol] 90 mmol/L Low 98-107 [facility] Comment on above: Performed By: #### C MP, CBC, HS TROP, TSH3 wRFLX #### [address] CO2 [Moles/Vol] 44.4 mmol/L High 21.0-31.0 [facility] Comment on above: Performed By: #### C MP, CBC, HS TROP, TSH3 wRFLX #### [address] Creatinine [Mass/Vol] 0.48 mg/dL Low 0.60-1.20 [facility] Comment on above: Performed By: #### C MP, CBC, HS TROP, TSH3 wRFLX #### [place] [address] [place] Creatinine Clr Calc Pharmacy 76.17 Normal [facility] Comment on above: Result Comment: PERF ORMED BY: [place] [address] PATHOLOGIST AIR AND HYDRONIC BALANCING TECHNICIAN JASMEET LIN M.D. Performed By: #### C MP, CBC, HS TROP, TSH3 wRFLX #### [place] [address] [place] GFR/1.73 sq M.predicted MDRD (S/P/Bld) [Vol rate/Area] mL/min/{1.73_m2} Normal [facility] Comment on above: Performed By: #### C MP, CBC, HS TROP, TSH3 wRFLX #### [address] Globulin (S) [Mass/Vol] 3.1 g/dL Normal T he [facility] Comment on above: Performed By: #### C MP, CBC, HS TROP, TSH3 wRFLX #### [address] Glucose [Mass/Vol] 148 mg/dL High 70-100 [facility] Comment on above: Result Comment: [facility] Glucose Reference Range is dependent on time and content of last meal. Glucose of more than 200 mg/dL in a nonstressed, ambulatory subject supports the diagnosis of Diabetes Mellitus. ADA recommended reference range Performed By: #### C MP, CBC, HS TROP, TSH3 wRFLX #### [address] Potassium [Moles/Vol] 4.3 mmol/L Normal 3.5-5.1 [facility] Comment on above: Performed By: #### C MP, CBC, HS TROP, TSH3 wRFLX #### [address] Protein [Mass/Vol] 7.1 g/dL Normal 6.4-8.9 [facility] Comment on above: Performed By: #### C MP, CBC, HS TROP, TSH3 wRFLX #### [address] Sodium [Moles/Vol] 137 mmol/L Normal 136-145 [facility] Comment on above: Performed By: #### C MP, CBC, HS TROP, TSH3 wRFLX #### [address] Urea nitrogen [Mass/Vol] 13 mg/dL Normal 7-25 [facility] Comment on above: Performed By: #### C MP, CBC, HS TROP, TSH3 wRFLX #### [address] angio chest PE protocolon 05-14-2023 CT angio chest PE protocol [facility] Main [place] [address] [place] [id number] Scan Report Signed Patient: Cinthia Guerrero MR#: [id number] : 1960 Acct:[id number] Age/Sex: 62 / F ADM Date: 05/14/23 Loc: Room: [address] [place] [address] Type: ADM IN Attending Dr: Cassandra Andersen [...] Wong Byrd M.D.05/14/2023 8:07 AM Dictation Location: [place] [address] Transcribed By: [facility] 05/14/23806 Dictated By: Wong Byrd DO 05/14/23 08 Signed By: 05/14/23806 Normal [facility] B-Type Natriuretic Peptideon 05-13-2023 Natriuretic peptide B (Bld) [Mass/Vol] 25.0 pg/mL Normal 5-100 [facility] Comment on above: Result Comment: PERF ORMED BY: [facility] [address] [place] [address] PATHOLOGIST AIR AND HYDRONIC BALANCING TECHNICIAN JASMEET LIN M.D. Performed By: #### B SKELP PROCESSOR #### [facility] [address] COVID-19 / Flu A/B / RSV [...] or Cepheid Disclaimer revoked sooner. PERFORMED BY: [place] [address] PATHOLOGIST AIR AND HYDRONIC BALANCING TECHNICIAN JASMEET LIN M.D. Normal [facility] Comment on above: Performed By: #### C MP, CBC, HS TROP, TSH3 wRFLX #### [address] Cepheid COVID PCR Negativeon 05-13-2023 SARS-CoV-2 (COVID-19) RNA KRUNAL+probe Ql (Unsp spec) Negative Normal Negative [facility] Comment on above: Result Comment: This is a duplicate Cepheid Xpert Xpress CoV-2/Flu/RSV Plus RNA by RT-PCR result to be used for statistical tracking purpose only. PERFORMED BY: [place] [address] PATHOLOGIST AIR AND HYDRONIC BALANCING TECHNICIAN JASMEET LIN M.D. Performed By: #### C MP, CBC, HS TROP, TSH3 wRFLX #### [address] Complete Blood Count Auto Di ffon 05-13-2023 Basophils (Bld) [#/Vol] 0.0 10*3/uL Normal 0.0-0.2 [facility] Comment on above: Result Comment: PERF ORMED BY: [place] [address] PATHOLOGIST AIR AND HYDRONIC BALANCING TECHNICIAN JASMEET LIN M.D. Performed By: #### C MP, CBC, HS TROP, TSH3 wRFLX #### [address] Basophils/100 WBC (Bld) 0.4 % Normal . T elin [facility] Comment on above: Performed By: #### C MP, CBC, HS TROP, TSH3 wRFLX #### [address] Eosinophils (Bld) [#/Vol] 0.0 10*3/uL Normal 0.0-0.45 [facility] Comment on above: Performed By: #### C MP, CBC, HS TROP, TSH3 wRFLX #### [address] Eosinophils/100 WBC (Bld) 0.1 % Normal . [facility] Comment on above: Performed By: #### C MP, CBC, HS TROP, TSH3 wRFLX #### [address] Erythrocyte distribution width (RBC) [Ratio] 13.5 % Normal 11.9-15.3 [facility] Comment on above: Performed By: #### C MP, CBC, HS TROP, TSH3 wRFLX #### [address] Hematocrit (Bld) [Volume fraction] 44.7 % Normal 34.0-46.4 [facility] Comment on above: Performed By: #### C MP, CBC, HS TROP, TSH3 wRFLX #### [address] Hemoglobin (Bld) [Mass/Vol] 14.9 g/dL Normal 11.8-15.4 [facility] Comment on above: Performed By: #### C MP, CBC, HS TROP, TSH3 wRFLX #### [address] Lymphocytes (Bld) [#/Vol] 1.4 10*3/uL Normal 1.00-4.8 [facility] Comment on above: Performed By: #### C MP, CBC, HS TROP, TSH3 wRFLX #### [address] Lymphocytes/100 WBC (Bld) 14.2 % Normal . [facility] Comment on above: Performed By: #### C MP, CBC, HS TROP, TSH3 wRFLX #### [address] MCH (RBC) [Entitic mass] 28.4 pg Normal 24.7-34.3 [facility] Comment on above: Performed By: #### C MP, CBC, HS TROP, TSH3 wRFLX #### [address] MCV (RBC) [Entitic vol] 85.1 fL Normal 80-100 [facility] Comment on above: Performed By: #### C MP, CBC, HS TROP, TSH3 wRFLX #### [address] Mean Corpuscular HGB Conc 33.4 g/dL Normal 32.0-35.0 [facility] Comment on above: Performed By: #### C MP, CBC, HS TROP, TSH3 wRFLX #### [address] Monocytes (Bld) [#/Vol] 0.8 10*3/uL Normal 0.0-0.8 [facility] Comment on above: Performed By: #### C MP, CBC, HS TROP, TSH3 wRFLX #### [address] Monocytes/100 WBC (Bld) 17.56 % Normal 0.00-20.00 [facility] Comment on above: Performed By: #### C MP, CBC, HS TROP, TSH3 wRFLX #### [address] Monocytes/100 WBC (Bld) 7.6 % Normal . [facility] Comment on above: Performed By: #### C MP, CBC, HS TROP, TSH3 wRFLX #### [address] Neutrophils (Bld) [#/Vol] 7.9 10*3/uL High 1.8-7.7 [facility] Comment on above: Performed By: #### C MP, CBC, HS TROP, TSH3 wRFLX #### [address] Neutrophils/100 WBC (Bld) 77.7 % Normal . [facility] Comment on above: Performed By: #### C MP, CBC, HS TROP, TSH3 wRFLX #### [address] NRBC% 0.1 /100{WBC} Normal 0-0.5 [facility] Comment on above: Performed By: #### C MP, CBC, HS TROP, TSH3 wRFLX #### [address] Platelet mean volume (Bld) [Entitic vol] 7.4 fL Normal 6.3-10.7 [facility] Comment on above: Performed By: #### C MP, CBC, HS TROP, TSH3 wRFLX #### [place] [address] [place] Platelets (Bld) [#/Vol] 405 10*3/uL Normal 150-450 [facility] Comment on above: Performed By: #### C MP, CBC, HS TROP, TSH3 wRFLX #### [place] [address] [place] RBC (Bld) [#/Vol] 5.25 10*6/uL High 3.60-5.00 [facility] Comment on above: Performed By: #### C MP, CBC, HS TROP, TSH3 wRFLX #### [place] [address] [place] WBC (Bld) [#/Vol] 10.2 10*3/uL Normal 3.8-11.6 [facility] Comment on above: Performed By: #### C MP, CBC, HS TROP, TSH3 wRFLX #### [address] Comprehensive Metabolic Pane [place] 05-13-2023 Albumin [Mass/Vol] 4.2 g/dL Normal 3.5-5.7 [facility] Comment on above: Performed By: #### C MP, CBC, HS TROP, TSH3 wRFLX #### [address] Albumin/Globulin [Mass ratio] 1.2 {ratio} Normal [facility] Comment on above: Performed By: #### C MP, CBC, HS TROP, TSH3 wRFLX #### [address] ALP [Catalytic activity/Vol] 79 U/L Normal 34-104 [facility] Comment on above: Performed By: #### C MP, CBC, HS TROP, TSH3 wRFLX #### [address] ALT [Catalytic activity/Vol] 15 U/L Normal 7-52 [facility] Comment on above: Performed By: #### C MP, CBC, HS TROP, TSH3 wRFLX #### [address] Anion gap [Moles/Vol] 12.3 mmol/L Normal 6.0-15.0 e [facility] Comment on above: Performed By: #### C MP, CBC, HS TROP, TSH3 wRFLX #### [address] AST [Catalytic activity/Vol] 17 U/L Normal 13-39 [facility] Comment on above: Performed By: #### C MP, CBC, HS TROP, TSH3 wRFLX #### [place] [address] [place] Bilirubin [Mass/Vol] 0.3 mg/dL Normal 0.3-1.0 [facility] Comment on above: Performed By: #### C MP, CBC, HS TROP, TSH3 wRFLX #### [place] [address] [place] Calcium [Mass/Vol] 10.0 mg/dL Normal 8.6-10.3 [facility] Comment on above: Performed By: #### C MP, CBC, HS TROP, TSH3 wRFLX #### [address] Chloride [Moles/Vol] 89 mmol/L Low 98-107 [facility] Comment on above: Performed By: #### C MP, CBC, HS TROP, TSH3 wRFLX #### [address] CO2 [Moles/Vol] 41.7 mmol/L High 21.0-31.0 [facility] Comment on above: Performed By: #### C MP, CBC, HS TROP, TSH3 wRFLX #### [address] Creatinine [Mass/Vol] 0.47 mg/dL Low 0.60-1.20 [facility] Comment on above: Performed By: #### C MP, CBC, HS TROP, TSH3 wRFLX #### [address] Creatinine Clr Calc Pharmacy 80.11 Normal [facility] Comment on above: Result Comment: PERF ORMED BY: [place] [address] PATHOLOGIST [employer] BALANCING TECHNICIAN JASMEET LIN M.D. Performed By: #### C MP, CBC, HS TROP, TSH3 wRFLX #### [address] GFR/1.73 sq M.predicted MDRD (S/P/Bld) [Vol rate/Area] mL/min/{1.73_m2} Normal [facility] Comment on above: Performed By: #### C MP, CBC, HS TROP, TSH3 wRFLX #### [address] Globulin (S) [Mass/Vol] 3.5 g/dL Normal T he [facility] Comment on above: Performed By: #### C MP, CBC, HS TROP, TSH3 wRFLX #### [facility] [address] [place] [address] [place] Glucose [Mass/Vol] 104 mg/dL High 70-100 [facility] Comment on above: Result Comment: [place] Glucose Reference Range is dependent on time and content of last meal. Glucose of more than 200 mg/dL in a nonstressed, ambulatory subject supports the diagnosis of Diabetes Mellitus. ADA recommended reference range Performed By: #### C MP, CBC, HS TROP, TSH3 wRFLX #### [facility] [address] [place] [address] [place] Potassium [Moles/Vol] 4.0 mmol/L Normal 3.5-5.1 [facility] Comment on above: Performed By: #### C MP, CBC, HS TROP, TSH3 wRFLX #### [place] [id number] [place] Protein [Mass/Vol] 7.7 g/dL Normal 6.4-8.9 [facility] Comment on above: Performed By: #### C MP, CBC, HS TROP, TSH3 wRFLX #### [place] [address] [place] Sodium [Moles/Vol] 139 mmol/L Normal 136-145 [facility] Comment on above: Performed By: #### C MP, CBC, HS TROP, TSH3 wRFLX #### [place] [address] [place] Urea nitrogen [Mass/Vol] 13 mg/dL Normal 7-25 [facility] Comment on above: Performed By: #### C MP, CBC, HS TROP, TSH3 wRFLX #### [place] [address] [place] ECG 12 lead ECGon 05-13-2023 ECG 12 lead ECG [facility] [place] [address] [place] [address] Electrocardiograph Report Signed Patient: Cinthia Guerrero MR#: [id number] : 1960 Acct:[id number] Age/Sex: 62 / F ADM Date: 05/13/23 Loc: ER Room: Type: PRE ER Attending Dr: Ordering Provider: SARAVANAN PROVIDER Date of Service: 05/13/23 ECG/ECG 12 [...] variant artifact Confirmed by Kd Carver DO ([id number]) on 05/13/2023 7:17:32 PM Referred By: Electronically Signed By:Kd Carver DO Transcribed By: MUS Signed By Kd Carver DO 1916 Normal [facility] Thyroid Stim Hormone w/Rflxo n 05-13-2023 Thyroid Stim Hormone w/Rflx 0.89 u[iU]/mL Normal 0.45-5.33 [facility] Comment on above: Result Comment: PERF ORMED BY: [place] [address] PATHOLOGIST [employer] BALANCING TECHNICIAN JASMEET LIN M.D. Performed By: #### C MP, CBC, HS TROP, TSH3 wRFLX #### [facility] [address] [place] [address] [place] Troponin I High Sensitivityo n 05-13-2023 Troponin I High Sensitivity 3.4 pg/mL Normal 0.0-15.0 [facility] Comment on above: Result Comment: PERF ORMED BY: [place] [address] PATHOLOGIST [employer] BALANCING TECHNICIAN JASMEET LIN M.D. Performed By: #### H S TROP #### [facility] [address] [place] [address] Troponin I High Sensitivity 3.9 pg/mL Normal 0.0-15.0 [facility] Comment on above: Result Comment: PERF ORMED BY: [place] [address] PATHOLOGIST [employer] BALANCING TECHNICIAN JASMEET LIN M.D. Performed By: #### C MP, CBC, HS TROP, TSH3 wRFLX #### [facility] [address] XR chest 2V*on 05-13-2023 XR chest 2V* [facility] [place] [address] [place] [address] XRay Report Signed Patient: Cinthia Guerrero MR#: [id number] : 1960 Acct:[id number] Age/Sex: 62 / F ADM Date: 05/13/23 Loc: ER Room: Type: [facility] ER Attending Dr: Copies to: Stacia [...] Wong Byrd M.D.05/13/2023 8:53 PM Dictation Location: [place] [address] Transcribed By: [facility] 05/13/232052 Dictated By: Wong Byrd DO 05/13/232051 Signed By: 05/13/232052 Normal [facility] CULTURE BLOODon 09-07-2022 Microscopic examination [...] F Trimethoprim/Sulfameth oxazole [address] [facility] Comment on above: Performed By: #### B LDCX1 #### [facility] [address] [place] [address] Dr. Geri Pradhan CBC AUTO DIFFon 09-05-2022 BASO # 0.0 103/ul Normal 0.0-0.1 [facility] Comment on above: Performed By: #### C BC #### [facility] [address] [place] [address] Dr. Geri Pradhan Basophils/100 WBC (Bld) 0.2 % Normal 0.2-2.0 [facility] Comment on above: Performed By: #### C BC #### [facility] [address] [place] [address] Dr. Geri Pradhan EO # 0.0 103/ul Normal 0.0-0.7 [facility] Comment on above: Performed By: #### C BC #### [facility] [address] [place] [address] Dr. Geri Pradhan Eosinophils/100 WBC (Bld) 0.0 % Critically low 0.9-7.0 [facility] Comment on above: Performed By: #### C BC #### [facility] [address] [place] [address] Dr. Geri Pradhan Erythrocyte distribution width (RBC) [Ratio] 13.8 % Normal 11.0-15.0 [facility] Comment on above: Performed By: #### C BC #### [facility] [address] [place] [address] Dr. Geri Pradhan Hematocrit (Bld) [Volume fraction] 38.8 % Normal 36.0-48.0 [facility] Comment on above: Performed By: #### C BC #### [facility] [address] [place] [address] Dr. Geri Pradhan Hemoglobin (Bld) [Mass/Vol] 11.7 g/dL Critically low 12.0-16.0 [facility] Comment on above: Performed By: #### C BC #### [facility] [address] [place] [address] Dr. Geri Pradhan IG # 0.27 10e3/ul Critically high 0.00-0.03 [facility] Comment on above: Performed By: #### C BC #### [facility] [address] [place] [address] Dr. Geri Pradhan IG % 2.9 % Critically high 0.0-0.5 [facility] Comment on above: Performed By: #### C BC #### [facility] [address] [place] [address] Dr. Geri Pradhan LYMPH # 0.4 103/ul Critically low 1.2-3.8 [facility] Comment on above: Performed By: #### C BC #### [facility] [address] [place] [address] Dr. Geri Pradhan Lymphocytes/100 WBC (Bld) 4.4 % Critically low 20.5-60.0 [facility] Comment on above: Performed By: #### C BC #### [facility] [address] [place] [address] Dr. Geri Pradhan MANUAL DIFF REQ NO Normal [facility] Comment on above: Performed By: #### C BC #### [facility] [address] [place] [address] Dr. Geri Pradhan MCH (RBC) [Entitic mass] 26.8 pg Normal 26.7-34.0 [facility] Comment on above: Performed By: #### C BC #### [facility] [address] [place] [address] Dr. Geri Pradhan MCHC (RBC) [Mass/Vol] 30.2 g/dL Normal 29.9-35.2 [facility] Comment on above: Performed By: #### C BC #### [facility] [address] [place] [address] Dr. Geri Pradhan MCV (RBC) [Entitic vol] 88.8 fL Normal 81.0-99.0 [facility] Comment on above: Performed By: #### C BC #### [facility] [address] [place] [address] Dr. Geri Pradhan MONO # 0.3 103/ul Normal 0.3-0.8 [facility] Comment on above: Performed By: #### C BC #### [facility] [address] [place] [address] Dr. Geri Pradhan Monocytes/100 WBC (Bld) 3.6 % Normal 1.7-12.0 [facility] Comment on above: Performed By: #### C BC #### [facility] [address] [place] [address] Dr. Geri Pradhan NEUT # 8.2 103/ul Critically high 1.4-6.5 [facility] Comment on above: Performed By: #### C BC #### [facility] [address] [place] [address] Dr. Geri Pradhan Neutrophils/100 WBC (Bld) 88.9 % Critically high 43.0-75.0 [facility] Comment on above: Performed By: #### C BC #### [facility] [address] [place] [address] Dr. Geri Pradhan Platelet mean volume (Bld) [Entitic vol] 9.1 fL Critically low 9.5-13.5 [facility] Comment on above: Performed By: #### C BC #### [facility] [address] [place] [address] Dr. Geri Pradhan PLT 314 103/ul Normal 150-450 [facility] Comment on above: Performed By: #### C BC #### [facility] [address] [place] [address] Dr. Geri Pradhan RBC 4.37 106/ul Normal 4.20-5.40 [facility] Comment on above: Performed By: #### C BC #### [facility] [address] [place] [address] Dr. Geri Pradhan WBC 9.2 103/ul Normal 4.0-11.0 [facility] Comment on above: Performed By: #### C BC #### [facility] [address] [place] [address] Dr. Geri Pradhan PROF 14(COMP METB)on 023 Albumin [Mass/Vol] 2.7 g/dL Critically low 3.4-5.0 Th e [facility] Comment on above: Performed By: #### Gerry INGRAM, CMP #### [facility] [address] [place] [address] Dr. Geri Pradhan Albumin/Globulin [Mass ratio] 0.7 {ratio} Normal [facility] Comment on above: Performed By: #### Gerry INGRAM, CMP #### [facility] [address] [place] [address] Dr. Geri Pradhan ALP [Catalytic activity/Vol] 65 U/L Normal 46-116 [facility] Comment on above: Performed By: #### Gerry INGRAM, CMP #### [facility] [address] [place] [address] Dr. Geri Pradhan ALT [Catalytic activity/Vol] 23 U/L Normal 14-59 [facility] Comment on above: Performed By: #### Gerry INGRAM, CMP #### [facility] [address] [place] [address] Dr. Geri Pradhan Anion gap [Moles/Vol] 2.0 mmol/L Normal [facility] Comment on above: Performed By: #### Gerry INGRAM, CMP #### [facility] [address] [place] [address] Dr. Geri Pradhan AST [Catalytic activity/Vol] 17 U/L Normal 15-37 [facility] Comment on above: Performed By: #### Gerry INGRAM, CMP #### [facility] [address] [place] [address] Dr. Geri Pradhan Bilirubin [Mass/Vol] 0.1 mg/dL Critically low 0.2-1.0 [facility] Comment on above: Performed By: #### Gerry INGRAM, CMP #### [facility] [address] [place] [address] Dr. Geri Pradhan Calcium [Mass/Vol] 9.0 mg/dL Normal 8.5-10.1 [facility] Comment on above: Performed By: #### Gerry INGRAM, CMP #### [facility] [address] [place] [address] Dr. Geri Pradhan Chloride [Moles/Vol] 99 mmol/L Normal 98-107 [facility] Comment on above: Performed By: #### Gerry INGRAM, CMP #### [facility] [address] [place] [address] Dr. Geri Pradhan CO2 [Moles/Vol] 45.3 mmol/L Critically high 21.0-32.0 [facility] Comment on above: Performed By: #### Gerry INGRAM, CMP #### [facility] [address] [place] [address] Dr. Geri Pradhan Creatinine [Mass/Vol] 0.50 mg/dL Critically low 0.55-1.02 [facility] Comment on above: Performed By: #### Gerry INGRAM, CMP #### [facility] [address] [place] [address] Dr. Geri Pradhan EGFR-AF [place] >60 Normal >=60 [facility] Comment on above: Performed By: #### Gerry INGRAM, CMP #### [facility] [address] [place] [address] Dr. Geri Pradhan EGFR-NON AF [place] >60 Normal >=60 [facility] Comment on above: Performed By: #### Gerry INGRAM, CMP #### [facility] [address] [place] [address] Dr. Geri Pradhan Globulin (S) [Mass/Vol] 3.7 g/dL Normal [facility] Comment on above: Performed By: #### Gerry INGRAM, CMP #### [facility] [address] [place] [address] Dr. Geri Pradhan Glucose [Mass/Vol] 180 mg/dL Critically high 74-106 [facility] Comment on above: Performed By: #### Gerry INGRAM, CMP #### [facility] [address] [place] [address] Dr. Geri Pradhan Potassium [Moles/Vol] 4.3 mmol/L Normal 3.5-5.1 [facility] Comment on above: Performed By: #### Gerry INGRAM, CMP #### [facility] [address] [place] [address] Dr. Geri Pradhan Protein [Mass/Vol] 6.4 g/dL Normal 6.4-8.2 [facility] Comment on above: Performed By: #### Gerry INGRAM, CMP #### [facility] [address] [place] [address] Dr. Geri Pradhan Sodium [Moles/Vol] 142 mmol/L Normal 136-145 [facility] Comment on above: Performed By: #### Gerry INGRAM, CMP #### [facility] [address] [place] [address] Dr. Geri Pradhan Urea nitrogen [Mass/Vol] 13.0 mg/dL Normal 7.0-18.0 [facility] Comment on above: Performed By: #### Gerry INGRAM, CMP #### [facility] [address] [place] [address] Dr. Geri Pradhan Urea nitrogen/Creatinine [Mass ratio] 26.0 mg/mg Normal [facility] Comment on above: Performed By: #### Gerry INGRAM, CMP #### [facility] [address] [place] [address] Dr. Geri Pradhan THEOPHYLLINEon 09-05-2022 THEOPHYLLINE <2.0 Critically low 10.0-20.0 [facility] Comment on above: Performed By: #### Gerry INGRAM, CMP #### [facility] [address] [place] [address] Dr. Geri Pradhan CBC AUTO DIFFon 09-04-2022 BASO # 0.0 103/ul Normal 0.0-0.1 [facility] Comment on above: Performed By: #### R SPLUS #### [facility] [address] [place] [address] Dr. Geri Pradhan Basophils/100 WBC (Bld) 0.1 % Critically low 0.2-2.0 [facility] Comment on above: Performed By: #### R SPLUS #### [facility] [address] [place] [address] Dr. Geri Pradhan EO # 0.0 103/ul Normal 0.0-0.7 [facility] Comment on above: Performed By: #### R SPLUS #### [facility] [address] [place] [address] Dr. Geri Pradhan Eosinophils/100 WBC (Bld) 0.0 % Critically low 0.9-7.0 [facility] Comment on above: Performed By: #### R SPLUS #### [facility] [address] [place] [address] Dr. Geri Pradhan Erythrocyte distribution width (RBC) [Ratio] 13.4 % Normal 11.0-15.0 [facility] Comment on above: Performed By: #### R SPLUS #### [facility] [address] [place] [address] Dr. Geri Pradhan Hematocrit (Bld) [Volume fraction] 42.8 % Normal 36.0-48.0 [facility] Comment on above: Performed By: #### R SPLUS #### [facility] [address] [place] [address] Dr. Geri Pradhan Hemoglobin (Bld) [Mass/Vol] 12.8 g/dL Normal 12.0-16.0 [facility] Comment on above: Performed By: #### R SPLUS #### [facility] [address] [place] [address] Dr. Geri Pradhan IG # 0.25 10e3/ul Critically high 0.00-0.03 [facility] Comment on above: Performed By: #### R SPLUS #### [facility] [address] [place] [address] Dr. Geri Pradhan IG % 2.0 % Critically high 0.0-0.5 [facility] Comment on above: Performed By: #### R SPLUS #### [facility] [address] [place] [address] Dr. Geri Pradhan LYMPH # 0.4 103/ul Critically low 1.2-3.8 [facility] Comment on above: Performed By: #### R SPLUS #### [facility] [address] [place] [address] [address] Geri Pradhan Lymphocytes/100 WBC (Bld) 3.6 % Critically low 20.5-60.0 [facility] Comment on above: Performed By: #### R SPLUS #### [facility] [address] [place] [address] [address] Geri Pradhan MANUAL DIFF REQ NO Normal [facility] Comment on above: Performed By: #### R SPLUS #### [facility] [address] [place] [address] [address] Geri Pradhan MCH (RBC) [Entitic mass] 26.8 pg Normal 26.7-34.0 [facility] Comment on above: Performed By: #### R SPLUS #### [facility] [address] [place] [address] Dr. Geri Pradhan MCHC (RBC) [Mass/Vol] 29.9 g/dL Normal 29.9-35.2 [facility] Comment on above: Performed By: #### R SPLUS #### [facility] [address] [place] [address] Dr. Geri Pradhan MCV (RBC) [Entitic vol] 89.5 fL Normal 81.0-99.0 [facility] Comment on above: Performed By: #### R SPLUS #### [facility] [address] [place] [address] Dr. Geri Pradhan MONO # 0.2 103/ul Critically low 0.3-0.8 [facility] Comment on above: Performed By: #### R SPLUS #### [facility] [address] [place] [address] Dr. Geri Pradhan Monocytes/100 WBC (Bld) 1.9 % Normal 1.7-12.0 [facility] Comment on above: Performed By: #### R SPLUS #### [facility] [address] [place] [address] Dr. Geri Pradhan NEUT # 11.4 103/ul Critically high 1.4-6.5 [facility] Comment on above: Performed By: #### R SPLUS #### [facility] [address] [address] [address] Geri Pradhan Neutrophils/100 WBC (Bld) 92.4 % Critically high 43.0-75.0 [facility] Comment on above: Performed By: #### R SPLUS #### [facility] [address] [address] [address] Geri Pradhan Platelet mean volume (Bld) [Entitic vol] 8.9 fL Critically low 9.5-13.5 [facility] Comment on above: Performed By: #### R SPLUS #### [facility] [address] [address] [address] Geri Pradhan PLT 350 103/ul Normal 150-450 [facility] Comment on above: Performed By: #### R SPLUS #### [facility] [address] [address] [address] Geri Pradhan RBC 4.78 106/ul Normal 4.20-5.40 [facility] Comment on above: Performed By: #### R SPLUS #### [facility] [address] [address] [address] Geri Pradhan WBC 12.3 103/ul Critically high 4.0-11.0 [facility] Comment on above: Performed By: #### R SPLUS #### [facility] [address] [address] [address] Geri Pradhan POINT OF CARE GLUCOSEon 08-12 Glucose [Mass/Vol] 142 mg/dL Critically high 74-106 [facility] Comment on above: Performed By: #### P OCGLUC #### [facility] [address] [address] [address] Geri Pradhan Glucose [Mass/Vol] 198 mg/dL Critically high 74-106 [facility] Comment on above: Performed By: #### T JUAN JOSE, CMP #### [facility] [address] [address] [address] Geri Pradhan Glucose [Mass/Vol] 147 mg/dL Critically high -106 [facility] Comment on above: Performed By: #### Gerry INGRAM, CMP #### [facility] [address] [address] [address] Geri Pradhan PROF 14(COMP METB)on 023 Albumin [Mass/Vol] 2.9 g/dL Critically low 3.4-5.0 [facility] Comment on above: Performed By: #### Gerry INGRAM, CMP #### [facility] [address] [place] [address] Dr. Geri Pradhan Albumin/Globulin [Mass ratio] 0.7 {ratio} Normal [facility] Comment on above: Performed By: #### Gerry INGRAM, CMP #### [facility] [address] [place] [address] Dr. Geri Pradhan ALP [Catalytic activity/Vol] 73 U/L Normal 46-116 [facility] Comment on above: Performed By: #### Gerry INGRAM, CMP #### [facility] [address] [place] [address] Dr. Geri Pradhan ALT [Catalytic activity/Vol] 24 U/L Normal 14-59 [facility] Comment on above: Performed By: #### Gerry INGRAM, CMP #### [facility] [address] [place] [address] Dr. Geri Pradhan Anion gap [Moles/Vol] 3.2 mmol/L Normal [facility] Comment on above: Performed By: #### Gerry INGRAM, CMP #### [facility] [address] [place] [address] Dr. Geri Pradhan AST [Catalytic activity/Vol] 17 U/L Normal 15-37 [facility] Comment on above: Performed By: #### Gerry INGRAM, CMP #### [facility] [address] [place] [address] Dr. Geri Pradhan Bilirubin [Mass/Vol] 0.1 mg/dL Critically low 0.2-1.0 [facility] Comment on above: Performed By: #### Gerry INGRAM, CMP #### [facility] [address] [place] [address] Dr. Geri Pradhan Calcium [Mass/Vol] 9.4 mg/dL Normal 8.5-10.1 [facility] Comment on above: Performed By: #### Gerry INGRAM, CMP #### [facility] [address] [place] [address] Dr. Geri Pradhan Chloride [Moles/Vol] 100 mmol/L Normal 98-107 [facility] Comment on above: Performed By: #### Gerry INGRAM, CMP #### [facility] [address] [place] [address] Dr. Geri Pradhan CO2 [Moles/Vol] 43.2 mmol/L Critically high 21.0-32.0 [facility] Comment on above: Performed By: #### Gerry INGRAM, CMP #### [facility] [address] [place] [address] Dr. Geri Pradhan Creatinine [Mass/Vol] 0.52 mg/dL Critically low 0.55-1.02 [facility] Comment on above: Performed By: #### Gerry INGRAM, CMP #### [facility] [address] [place] [address] Dr. Geri Pradhan EGFR-AF [place] >60 Normal >=60 [facility] Comment on above: Performed By: #### Gerry INGRAM, CMP #### [facility] [address] [place] [address] Dr. Geri Pradhan EGFR-NON AF [place] >60 Normal >=60 [facility] Comment on above: Performed By: #### Gerry INGRAM, CMP #### [facility] [address] [place] [address] Dr. Geri Pradhan Globulin (S) [Mass/Vol] 4.2 g/dL Normal [facility] Comment on above: Performed By: #### Gerry INGRAM, CMP #### [facility] [address] [place] [address] Dr. Geri Pradhan Glucose [Mass/Vol] 138 mg/dL Critically high 74-106 [facility] Comment on above: Performed By: #### Gerry INGRAM, CMP #### [facility] [address] [place] [address] Dr. Geri Pradhan Potassium [Moles/Vol] 4.4 mmol/L Normal 3.5-5.1 [facility] Comment on above: Performed By: #### Gerry INGRAM CMP #### [facility] [address] [place] [address] Dr. Geri Pradhan Protein [Mass/Vol] 7.1 g/dL Normal 6.4-8.2 [facility] Comment on above: Performed By: #### Gerry INGRAM CMP #### [facility] [address] [place] [address] Dr. Geri Pradhan Sodium [Moles/Vol] 142 mmol/L Normal 136-145 [facility] Comment on above: Performed By: #### Gerry INGRAM CMP #### [facility] [address] [place] [address] Dr. Geri Pradhan Urea nitrogen [Mass/Vol] 15.0 mg/dL Normal 7.0-18.0 [facility] Comment on above: Performed By: #### Gerry INGRAM CMP #### [facility] [address] [place] [address] Dr. Geri Pradhan Urea nitrogen/Creatinine [Mass ratio] 28.8 mg/mg Normal [facility] Comment on above: Performed By: #### Gerry INGRAM CMP #### [facility] [address] [place] [address] Dr. Geri Pradhan RESPIRATORY PANEL PLUSon Adenovirus Not detected Normal NOT DETECTED [facility] Comment on above: Performed By: #### R SPLUS #### [facility] [address] [place] [address] Dr. Geri Joe. Parapertusis Not detected Normal NOT DETECTED [facility] Comment on above: Performed By: #### R SPLUS #### [facility] [address] [place] [address] Dr. Geri Joe. Pertussis Not detected Normal NOT DETECTED [facility] Comment on above: Performed By: #### R SPLUS #### [facility] [address] [place] [address] Dr. Geri Pradhan Chlamydia Pneumoniae Not detected Normal NOT DETECTED [facility] Comment on above: Performed By: #### R SPLUS #### [facility] [address] [place] [address] Dr. Geri Pradhan Coronavirus 229E Not detected Normal NOT DETECTED [facility] Comment on above: Performed By: #### R SPLUS #### [facility] [address] [place] [address] Dr. Geri Pradhan Coronavirus HKU1 Not detected Normal NOT DETECTED [facility] Comment on above: Performed By: #### R SPLUS #### [facility] [address] [place] [address] Dr. Geri Pradhan Coronavirus NL63 Not detected Normal NOT DETECTED [facility] Comment on above: Performed By: #### R SPLUS #### [facility] [address] [place] [address] Dr. Geri Pradhan Coronavirus OC43 Not detected Normal NOT DETECTED [facility] Comment on above: Performed By: #### R SPLUS #### [facility] [address] [place] [address] Dr. Geri Pradhan Influenza A H1 Not detected Normal NOT DETECTED [facility] Comment on above: Performed By: #### R SPLUS #### [facility] [address] [place] [address] Dr. Geri Pradhan Influenza A H1 2009 Not detected Normal NOT DETECTED [facility] Comment on above: Performed By: #### R SPLUS #### [facility] [address] [place] [address] Dr. Geri Pradhan Influenza A H3 Not detected Normal NOT DETECTED [facility] Comment on above: Performed By: #### R SPLUS #### [facility] [address] [place] [address] Dr. Geri Pradhan Influenza B Not detected Normal NOT DETECTED [facility] Comment on above: Performed By: #### R SPLUS #### [facility] [address] [place] [address] Dr. Geri Pradhan Metapneumovirus Not detected Normal NOT DETECTED [facility] Comment on above: Performed By: #### R SPLUS #### [facility] [address] [place] [address] Dr. Geri Pradhan Mycoplas. Pneumoniae Not detected Normal NOT DETECTED [facility] Comment on above: Performed By: #### R SPLUS #### [facility] [address] [place] [address] Dr. Geri Pradhan Parainfluenza 1 Not detected Normal NOT DETECTED [facility] Comment on above: Performed By: #### R SPLUS #### [facility] [address] [place] [address] Dr. Geri Pradhan Parainfluenza 2 Not detected Normal NOT DETECTED [facility] Comment on above: Performed By: #### R SPLUS #### [facility] [address] [place] [address] Dr. Geri Pradhan Parainfluenza 3 Detected Abnormal NOT DETECTED [facility] Comment on above: Performed By: #### R SPLUS #### [facility] [address] [place] [address] Dr. Geri Pradhan Parainfluenza 4 Not detected Normal NOT DETECTED [facility] Comment on above: Performed By: #### R SPLUS #### [facility] [address] [place] [address] Dr. Geri Pradhan Rhino/Enterovirus Not detected Normal NOT DETECTED [facility] Comment on above: Performed By: #### R SPLUS #### [facility] [address] [place] [address] Dr. Geri Pradhan RP2 Header 1 RESPIRATORY PANEL: VIRUSES Normal [facility] Comment on above: Performed By: #### R SPLUS #### [facility] [address] [place] [address] Dr. Geri Pradhan RP2 Header 2 RESPIRATORY PANEL: BACTERIA Normal [facility] Comment on above: Performed By: #### R SPLUS #### [facility] [address] [place] [address] Dr. Geri Pradhan RSV Not detected Normal NOT DETECTED [facility] Comment on above: Performed By: #### R SPLUS #### [facility] [address] [place] [address] Dr. Geri Pradhan SARS-CoV-2 (COVID-19) RNA KRUNAL+probe Ql (Unsp spec) Not detected Normal NOT DETECTED [facility] Comment on above: Performed By: #### R SPLUS #### [facility] [address] [place] [address] Dr. Geri Pradhan THEOPHYLLINEon 09-04-2022 THEOPHYLLINE <2.0 Critically low 10.0-20.0 [facility] Comment on above: Performed By: #### T JUAN JOSE, CMP #### [facility] [address] [place] [address] Dr. Geri Pradhan CBC AUTO DIFFon 09-03-2022 BASO # 0.0 103/ul Normal 0.0-0.1 [facility] Comment on above: Performed By: #### P OCGLUC #### [facility] [address] [place] [address] Dr. Geri Pradhan Basophils/100 WBC (Bld) 0.1 % Critically low 0.2-2.0 [facility] Comment on above: Performed By: #### P OCGLUC #### [facility] [address] [place] [address] Dr. Geri Pradhan EO # 0.0 103/ul Normal 0.0-0.7 [facility] Comment on above: Performed By: #### P OCGLUC #### [facility] [address] [place] [address] Dr. Geri Pradhan Eosinophils/100 WBC (Bld) 0.0 % Critically low 0.9-7.0 [facility] Comment on above: Performed By: #### P OCGLUC #### [facility] [address] [place] [address] Dr. Geri Pradhan Erythrocyte distribution width (RBC) [Ratio] 13.0 % Normal 11.0-15.0 [facility] Comment on above: Performed By: #### P OCGLUC #### [facility] [address] [place] [address] Dr. Geri Pradhan Hematocrit (Bld) [Volume fraction] 42.1 % Normal 36.0-48.0 [facility] Comment on above: Performed By: #### P OCGLUC #### [facility] [address] [address] [address] Geri Pradhan Hemoglobin (Bld) [Mass/Vol] 12.3 g/dL Normal 12.0-16.0 [facility] Comment on above: Performed By: #### P OCGLUC #### [facility] [address] [address] [address] Geri Pradhan IG # 0.13 10e3/ul Critically high 0.00-0.03 [facility] Comment on above: Performed By: #### P OCGLUC #### [facility] [address] [address] [address] Geri Pradhan IG % 1.2 % Critically high 0.0-0.5 [facility] Comment on above: Performed By: #### P OCGLUC #### [facility] [address] [place] [address] Dr. Geri Pradhan LYMPH # 0.6 103/ul Critically low 1.2-3.8 [facility] Comment on above: Performed By: #### P OCGLUC #### [facility] [address] [place] [address] Dr. Geri Pradhan Lymphocytes/100 WBC (Bld) 6.0 % Critically low 20.5-60.0 [facility] Comment on above: Performed By: #### P OCGLUC #### [facility] [address] [place] [address] Dr. Geri Pradhan MANUAL DIFF REQ NO Normal [facility] Comment on above: Performed By: #### P OCGLUC #### [facility] [address] [place] [address] Dr. Geri Pradhan MCH (RBC) [Entitic mass] 26.0 pg Critically low 26.7-34.0 [facility] Comment on above: Performed By: #### P OCGLUC #### [facility] [address] [place] [address] Dr. Geri Pradhan MCHC (RBC) [Mass/Vol] 29.2 g/dL Critically low 29.9-35.2 [facility] Comment on above: Performed By: #### P OCGLUC #### [facility] [address] [address] [address] Geri Pradhan MCV (RBC) [Entitic vol] 89.0 fL Normal 81.0-99.0 [facility] Comment on above: Performed By: #### P OCGLUC #### [facility] [address] [address] [address] Geri Pradhan MONO # 0.2 103/ul Critically low 0.3-0.8 [facility] Comment on above: Performed By: #### P OCGLUC #### [facility] [address] [address] [address] Geri Pradhan Monocytes/100 WBC (Bld) 2.0 % Normal 1.7-12.0 [facility] Comment on above: Performed By: #### P OCGLUC #### [facility] [address] [place] [address] Dr. Geri Pradhan NEUT # 9.6 103/ul Critically high 1.4-6.5 [facility] Comment on above: Performed By: #### P OCGLUC #### [facility] [address] [place] [address] Dr. Geri Pradhan Neutrophils/100 WBC (Bld) 90.7 % Critically high 43.0-75.0 [facility] Comment on above: Performed By: #### P OCGLUC #### [facility] [address] [place] [address] Dr. Geri Pradhan Platelet mean volume (Bld) [Entitic vol] 9.1 fL Critically low 9.5-13.5 [facility] Comment on above: Performed By: #### P OCGLUC #### [facility] [address] [place] [address] Dr. Geri Pradhan PLT 302 103/ul Normal 150-450 [facility] Comment on above: Performed By: #### P OCGLUC #### [facility] [address] [place] [address] Dr. Geri Pradhan RBC 4.73 106/ul Normal 4.20-5.40 [facility] Comment on above: Performed By: #### P OCGLUC #### [facility] [address] [address] [address] Geri Pradhan WBC 10.6 103/ul Normal 4.0-11.0 [facility] Comment on above: Performed By: #### P OCGLUC #### [facility] [address] [address] [address] Geri Pradhan POINT OF CARE GLUCOSEon 08-12 Glucose [Mass/Vol] 130 mg/dL Critically high [facility]106 [facility] Comment on above: Performed By: #### T JUAN JOSE, CMP #### [facility] [address] [address] [address] Geri Pradhan Glucose [Mass/Vol] 217 mg/dL Critically high [address] [place] [address] Comment on above: Performed By: #### T JUAN JOSE, CMP #### [facility] [address] [address] [address] Geri Pradhan Glucose [Mass/Vol] 327 mg/dL Critically high [address] [place] [address] Comment on above: Performed By: #### C VDTBH #### [facility] [address] [address] [address] Geri Pradhan Glucose [Mass/Vol] 146 mg/dL Critically high [address] [place] [address] Comment on above: Performed By: #### T JUAN JOSE, CMP #### [facility] [address] [address] [address] Geri Pradhan Glucose [Mass/Vol] 174 mg/dL Critically high [facility]106 [facility] Comment on above: Performed By: #### T JUAN JOSE, CMP #### [facility] [address] [address] [address] Geri Pradhan PROF 14(COMP METB)on 023 Albumin [Mass/Vol] 2.9 g/dL Critically low 3.4-5.0 [facility] Comment on above: Performed By: #### P OCGLUC #### [facility] [address] [address] [address] Geri Pradhan Albumin/Globulin [Mass ratio] 0.7 {ratio} Normal [facility] Comment on above: Performed By: #### P OCGLUC #### [facility] [address] [address] [address] Geri Pradhan ALP [Catalytic activity/Vol] 74 U/L Normal 46-116 [facility] Comment on above: Performed By: #### P OCGLUC #### [facility] [address] [address] [address] Geri Pradhan ALT [Catalytic activity/Vol] 21 U/L Normal 14-59 [facility] Comment on above: Performed By: #### P OCGLUC #### [facility] [address] [address] [address] Geri Pradhan Anion gap [Moles/Vol] 4.4 mmol/L Normal [facility] Comment on above: Performed By: #### P OCGLUC #### [facility] [address] [place] [address] Dr. Geri Pradhan AST [Catalytic activity/Vol] 17 U/L Normal 15-37 [facility] Comment on above: Performed By: #### P OCGLUC #### [facility] [address] [address] [address] Geri Pradhan Bilirubin [Mass/Vol] 0.2 mg/dL Normal 0.2-1.0 [facility] Comment on above: Performed By: #### P OCGLUC #### [facility] [address] [address] [address] Geri Pradhan Calcium [Mass/Vol] 9.4 mg/dL Normal 8.5-10.1 [facility] Comment on above: Performed By: #### P OCGLUC #### [facility] [address] [address] [address] Geri Pradhan Chloride [Moles/Vol] 99 mmol/L Normal 98-107 [facility] Comment on above: Performed By: #### P OCGLUC #### [facility] [address] [address] [address] Geri Pradhan CO2 [Moles/Vol] 42.8 mmol/L Critically high 21.0-32.0 [facility] Comment on above: Performed By: #### P OCGLUC #### [facility] [address] [address] [address] Geri Pradhan Creatinine [Mass/Vol] 0.55 mg/dL Normal 0.55-1.02 [facility] Comment on above: Performed By: #### P OCGLUC #### [facility] [address] [address] [address] Geri Pradhan EGFR-AF [place] >60 Normal >=60 [facility] Comment on above: Performed By: #### P OCGLUC #### [facility] [address] [address] [address] Geri Pradhan EGFR-NON AF [place] >60 Normal >=60 [facility] Comment on above: Performed By: #### P OCGLUC #### [facility] [address] [address] [address] Geri Pradhan Globulin (S) [Mass/Vol] 4.4 g/dL Normal [facility] Comment on above: Performed By: #### P OCGLUC #### [facility] [address] [address] [address] Geri Pradhan Glucose [Mass/Vol] 136 mg/dL Critically high 74-106 [facility] Comment on above: Performed By: #### P OCGLUC #### [facility] [address] [place] [address] Dr. Geri Pradhan Potassium [Moles/Vol] 4.2 mmol/L Normal 3.5-5.1 [facility] Comment on above: Performed By: #### P OCGLUC #### [facility] [address] [address] [address] Geri Pradhan Protein [Mass/Vol] 7.3 g/dL Normal 6.4-8.2 [facility] Comment on above: Performed By: #### P OCGLUC #### [facility] [address] [place] [address] Dr. Geri Pradhan Sodium [Moles/Vol] 142 mmol/L Normal 136-145 [facility] Comment on above: Performed By: #### P OCGLUC #### [facility] [address] [address] [address] Geri Pradhan Urea nitrogen [Mass/Vol] 14.0 mg/dL Normal 7.0-18.0 [facility] Comment on above: Performed By: #### P OCGLUC #### [facility] [address] [place] [address] Dr. Geri Pradhan Urea nitrogen/Creatinine [Mass ratio] 25.5 mg/mg Normal [facility] Comment on above: Performed By: #### P OCGLUC #### [facility] [address] [address] [address] Geri Pradhan THEOPHYLLINEon 09-03-2022 THEOPHYLLINE <2.0 Critically low 10.0-20.0 [facility] Comment on above: Performed By: #### P OCGLUC #### [facility] [address] [place] [address] Dr. Geri Pradhan MAGNESIUMon 09-02-2022 Magnesium [Mass/Vol] 2.3 mg/dL Normal 1.8-2.4 [facility] Comment on above: Performed By: #### T JUAN JOSE, CMP #### [facility] [address] [address] [address] Geri Pradhan POINT OF CARE GLUCOSEon 08-12 Glucose [Mass/Vol] 118 mg/dL Critically high [facility]106 [facility] Comment on above: Performed By: #### R SPLUS #### [facility] [address] [place] [address] Dr. Geri Pradhan Glucose [Mass/Vol] 263 mg/dL Critically high -106 [facility] Comment on above: Performed By: #### R SPLUS #### [facility] [address] [place] [address] Dr. Geri Pradhan Glucose [Mass/Vol] 160 mg/dL Critically high -106 [facility] Comment on above: Performed By: #### P OCGLUC #### [facility] [address] [place] [address] Dr. Geri Pradhan PROF CHEM 8 (BAS METB)on Anion gap [Moles/Vol] 5.3 mmol/L Normal [facility] Comment on above: Performed By: #### Gerry INGRAM, CMP #### [facility] [address] [address] [address] Geri Pradhan Calcium [Mass/Vol] 9.5 mg/dL Normal 8.5-10.1 [facility] Comment on above: Performed By: #### Gerry INGRAM, CMP #### [facility] [address] [address] [address] Geri Pradhan Chloride [Moles/Vol] 94 mmol/L Critically low 98-107 [facility] Comment on above: Performed By: #### Gerry INGRAM, CMP #### [facility] [address] [address] [address] Geri Pradhan CO2 [Moles/Vol] 42.5 mmol/L Critically high 21.0-32.0 [facility] Comment on above: Performed By: #### Gerry INGRAM, CMP #### [facility] [address] [place] [address] Dr. Geri Pradhan Creatinine [Mass/Vol] 0.66 mg/dL Normal 0.55-1.02 [facility] Comment on above: Performed By: #### Gerry INGRAM, CMP #### [facility] [address] [place] [address] Dr. Geri Pradhan EGFR-AF [place]ER >60 Normal >=60 [facility] Comment on above: Performed By: #### Gerry INGRAM, CMP #### [facility] [address] [place] [address] Dr. Geri Pradhan EGFR-NON AF [place] >60 Normal >=60 [facility] Comment on above: Performed By: #### Gerry INGRAM, CMP #### [facility] [address] [address] [address] Geri Pradhan Glucose [Mass/Vol] 183 mg/dL Critically high 74-106 [facility] Comment on above: Performed By: #### Gerry INGRAM, CMP #### [facility] [address] [place] [address] Dr. Geri Pradhan Potassium [Moles/Vol] 3.8 mmol/L Normal 3.5-5.1 [facility] Comment on above: Performed By: #### Gerry INGRAM, CMP #### [facility] [address] [place] [address] Dr. Geri Pradhan Sodium [Moles/Vol] 138 mmol/L Normal 136-145 [facility] Comment on above: Performed By: #### Gerry INGRAM, CMP #### [facility] [address] [place] [address] Dr. Geri Pradhan Urea nitrogen [Mass/Vol] 10.0 mg/dL Normal 7.0-18.0 [facility] Comment on above: Performed By: #### Gerry INGRAM, CMP #### [facility] [address] [place] [address] Dr. Geri Pradhan Urea nitrogen/Creatinine [Mass ratio] 15.2 mg/mg Normal [facility] Comment on above: Performed By: #### Gerry INGRAM, CMP #### [facility] [address] [place] [address] Dr. Geri Pradhan THEOPHYLLINEon 09-02-2022 THEOPHYLLINE <2.0 Critically low 10.0-20.0 [facility] Comment on above: Performed By: #### R SPLUS #### [facility] [address] [place] [address] Dr. Geri Pradhan BLOOD CULTURE ID PANELon A. baumannii Not detected Normal NOT DETECTED [facility] Comment on above: Performed By: #### Gerry INGRAM, CMP #### [facility] [address] [place] [address] Dr. Geri Pradhan Bacteriodes fragilis Not detected Normal NOT DETECTED [facility] Comment on above: Performed By: #### Gerry INGRAM, CMP #### [facility] [address] [place] [address] Dr. Geri Pradhan BCID CONTROLS PASSED Normal [facility] Comment on above: Performed By: #### Gerry INGRAM, CMP #### [facility] [address] [place] [address] Dr. Geri Pradhan BCIDBTHD BLOOD CULTURE BOTTLE INFORMATION Normal [facility] Comment on above: Performed By: #### Gerry INGRAM, CMP #### [facility] [address] [address] [address] Geri Pradhan BCIDHD1 ANTIMICROBIAL RESISTANCE GENES Normal [facility] Comment on above: Performed By: #### Gerry INGRAM, CMP #### [facility] [address] [address] [address] Geri Pradhan BCIDHD2 SEE BELOW [facility] Comment on above: Result Comment: Note : Antimicrobial resitance can occur via multiple mechanisms. A Not Detected result for the [employer] antomicrobial resistance gene assays does not indicate antimicrobial susceptibility. Subculturing is required for species identification and susceptibility testing of isolates. Performed By: #### Gerry INGRAM, CMP #### [facility] [address] [address] [address] Geri Pradhan BCIDHD3 Positive [facility] Comment on above: Performed By: #### Gerry INGRAM, CMP #### [facility] [address] [address] [address] Geri Pradhan BCIDHD4 Negative Normal [facility] Comment on above: Performed By: #### Gerry INGRAM, CMP #### [facility] [address] [address] [address] Geri Pradhan BCIDHD5 YEAST Normal [facility] Comment on above: Performed By: #### Gerry INGRAM, CMP #### [facility] [address] [address] [address] Geri Pradhan Bottle Set: Set [address] [facility] Comment on above: Performed By: #### Gerry INGRAM, CMP #### [facility] [address] [address] [address] Geri Pradhan Bottle: Aerobic Normal [facility] Comment on above: Performed By: #### Gerry INGRAM, CMP #### [facility] [address] [address] [address] Geri Pradhan C. neoformans/gattii Not detected Normal NOT DETECTED [facility] Comment on above: Performed By: #### Gerry INGRAM, CMP #### [facility] [address] [address] [address] Geri Pradhan Milagros albicans Not detected Normal NOT DETECTED [facility] Comment on above: Performed By: #### T JUAN JOSE, CMP #### [facility] [address] [address] [address] Geri Pradhan Milagros auris Not detected Normal NOT DETECTED [facility] Comment on above: Performed By: #### T JUAN JOSE, CMP #### [facility] [address] [place] [address] Dr. Geri Pradhan Milagros glabrata Not detected Normal NOT DETECTED [facility] Comment on above: Performed By: #### T JUAN JOSE, CMP #### [facility] [address] [place] [address] Dr. Geri Pradhan Milagros Krusei Not detected Normal NOT DETECTED [facility] Comment on above: Performed By: #### T JUAN JOSE, CMP #### [facility] [address] [place] [address] Dr. Geri Pradhan Milagros Parapsilosis Not detected Normal NOT DETECTED [facility] Comment on above: Performed By: #### Gerry INGRAM, CMP #### [facility] [address] [place] [address] Dr. Geri Pradhan Milagros Tropicalis Not detected Normal NOT DETECTED [facility] Comment on above: Performed By: #### T JUAN JOSE, CMP #### [facility] [address] [place] [address] Dr. Geri Pradhan CTX-M Resistant Gene Not Applicable Normal NOT DETECTE D [facility] Comment on above: Performed By: #### T JUAN JOSE, CMP #### [facility] [address] [place] [address] Dr. Geri Pradhan E. Cloacae complex Not detected Normal NOT DETECTED [facility] Comment on above: Performed By: #### T JUAN JOSE, CMP #### [facility] [address] [place] [address] Dr. Geri Pradhan E. faecalis Not detected Normal NOT DETECTED [facility] Comment on above: Performed By: #### T JUAN JOSE, CMP #### [facility] [address] [place] [address] Dr. Geri Pradhan E. faecium Not detected Normal NOT DETECTED [facility] Comment on above: Performed By: #### Gerry INGRAM, CMP #### [facility] [address] [place] [address] Dr. Geri Pradhan Enterobacteriaceae Not detected Normal NOT DETECTED [facility] Comment on above: Performed By: #### Gerry INGRAM, CMP #### [facility] [address] [place] [address] Dr. Geri Pradhan Escherichia coli Not detected Normal NOT DETECTED [facility] Comment on above: Performed By: #### Gerry INGRAM, CMP #### [facility] [address] [place] [address] Dr. Geri Pradhan H. influenzae Not detected Normal NOT DETECTED [facility] Comment on above: Performed By: #### Gerry INGRAM, CMP #### [facility] [address] [place] [address] Dr. Geri Pradhan IMP Resistant Gene Not Applicable Normal NOT DETECTED [facility] Comment on above: Performed By: #### Gerry INGRAM, CMP #### [facility] [address] [place] [address] Dr. Geri Pradhan K. oxytoca Not detected Normal NOT DETECTED [facility] Comment on above: Performed By: #### Gerry INGRAM, CMP #### [facility] [address] [place] [address] Dr. Geri Pradhan K. pneumoniae Not detected Normal NOT DETECTED [facility] Comment on above: Performed By: #### Gerry INGRAM, CMP #### [facility] [address] [place] [address] Dr. Geri Pradhan Klebsiella aerogenes Not detected Normal NOT DETECTED [facility] Comment on above: Performed By: #### Gerry INGRAM, CMP #### [facility] [address] [place] [address] Dr. Geri Pradhan KPC Resistant Gene Not Applicable Normal NOT DETECTED [facility] Comment on above: Performed By: #### Gerry INGRAM, CMP #### [facility] [address] [place] [address] Dr. Geri Pradhan List. monocytogenes Not detected Normal NOT DETECTED [facility] Comment on above: Performed By: #### Gerry INGRAM, CMP #### [facility] [address] [place] [address] Dr. Geri Pradhan Mcr-1 Resistant Gene Not Applicable Normal NOT DETECTE D [facility] Comment on above: Performed By: #### T JUAN JOSE, CMP #### [facility] [address] [place] [address] Dr. Geri Pradhan mecA/C Detected Abnormal NOT DETECTED [facility] Comment on above: Performed By: #### T JUAN JOSE, CMP #### [facility] [address] [place] [address] Dr. Geri Pradhan mecA/C MREJ Not Applicable Normal NOT DETECTED [facility] Comment on above: Performed By: #### Gerry INGRAM, CMP #### [facility] [address] [place] [address] Dr. Geri Pradhan N. meningitidis Not detected Normal NOT DETECTED [facility] Comment on above: Performed By: #### Gerry INGRAM, CMP #### [facility] [address] [place] [address] Dr. Geri Pradhan NDM Resistant Gene Not Applicable Normal NOT DETECTED [facility] Comment on above: Performed By: #### Gerry INGRAM, CMP #### [facility] [address] [place] [address] Dr. Geri Pradhan Oxa-48-like Not Applicable Normal NOT DETECTED [facility] Comment on above: Performed By: #### Gerry INGRAM, CMP #### [facility] [address] [place] [address] Dr. Geri Pradhan Proteus Not detected Normal NOT DETECTED [facility] Comment on above: Performed By: #### Gerry INGRAM, CMP #### [facility] [address] [place] [address] Dr. Geri Pradhan Pseud. aeruginosa Not detected Normal NOT DETECTED [facility] Comment on above: Performed By: #### Gerry INGRAM, CMP #### [facility] [address] [place] [address] Dr. Geri Pradhan S. maltophilia Not detected Normal NOT DETECTED [facility] Comment on above: Performed By: #### Gerry INGRAM, CMP #### [facility] [address] [address] [address] Geri Pradhan Salmonella Not detected Normal NOT DETECTED [facility] Comment on above: Performed By: #### T JUAN JOSE, CMP #### [facility] [address] [address] [address] Geri Pradhan Seratia marcescens Not detected Normal NOT DETECTED [facility] Comment on above: Performed By: #### T JUAN JOSE, CMP #### [facility] [address] [address] [address] Geri Pradhan Site: Right AC Normal [facility] Comment on above: Performed By: #### T JUNA JOSE, CMP #### [facility] [address] [address] [address] Geri Pradhan Stapwilliam. aureus Not detected Normal NOT DETECTED [facility] Comment on above: Performed By: #### Gerry INGRAM, CMP #### [facility] [address] [place] [address] Dr. Geri Pradhan Stapwilliam. epidermidis Detected Critically abnormal NOT DETECTED [facility] Comment on above: Performed By: #### Gerry INGRAM, CMP #### [facility] [address] [place] [address] Dr. Geri Pradhan Stapwilliam. lugdunensis Not detected Normal NOT DETECTED [facility] Comment on above: Performed By: #### Gerry INGRAM, CMP #### [facility] [address] [place] [address] Dr. Geri Pradhan Staphylococcus Detected Critically abnormal NOT DETECTED [facility] Comment on above: Performed By: #### T JUAN JOSE, CMP #### [facility] [address] [place] [address] Dr. Geri Pradhan Strep. agalactiae Not detected Normal NOT DETECTED [facility] Comment on above: Performed By: #### T JUAN JOSE, CMP #### [facility] [address] [address] [address] Geri Pradhan Strep. pneumoniae Not detected Normal NOT DETECTED [facility] Comment on above: Performed By: #### T JUAN JOSE, CMP #### [facility] [address] [place] [address] Dr. Geri Pradhan Strep. pyogenes Not detected Normal NOT DETECTED [facility] Comment on above: Performed By: #### Gerry INGRAM, CMP #### [facility] [address] [place] [address] Dr. Geri Pradhan Streptococcus Not detected Normal NOT DETECTED [facility] Comment on above: Performed By: #### Gerry INGRAM, CMP #### [facility] [address] [place] [address] Dr. Geri Pradhan Amrit/B Resist. Gene Not Applicable Normal NOT DETECTED [facility] Comment on above: Performed By: #### Gerry INGRAM, CMP #### [facility] [address] [place] [address] Dr. Geri Pradhan VIM Resistant Gene Not Applicable Normal NOT DETECTED [facility] Comment on above: Performed By: #### Gerry INGRAM CMP #### [facility] [address] [place] [address] Dr. Geri Pradhan [facility] 02 MODE NASAL CANNULA Normal [facility] Comment on above: Performed By: #### R SPLUS #### [facility] [address] [place] [address] Dr. Geri Pradhan ALLENS TEST Positive Normal [facility] Comment on above: Performed By: #### R SPLUS #### [facility] [address] [place] [address] Dr. Geri Pradhan Base excess Calc (Bld) [Moles/Vol] 22.8 mmol/L Critically high -2.0-2.0 [facility] Comment on above: Performed By: #### R SPLUS #### [facility] [address] [place] [address] Dr. Geri Pradhan BIPAP PRESSURE Normal [facility] Comment on above: Performed By: #### R SPLUS #### [facility] [address] [place] [address] Dr. Geri Pradhan CPAP Normal [facility] Comment on above: Performed By: #### R SPLUS #### [facility] [address] [place] [address] Dr. Geri Pradhan FIO2 [facility] Comment on above: Performed By: #### R SPLUS #### [facility] [address] [place] [address] Dr. Geri Pradhan HCO3 (Bld) [Moles/Vol] 47.1 mmol/L Critically high 22.0-[address] [facility] Comment on above: Performed By: #### R SPLUS #### [facility] [address] [place] [address] Dr. Geri Pradhan LPM 2.[address] [facility] Comment on above: Performed By: #### R SPLUS #### [facility] [address] [place] [address] Dr. Geri Pradhan MINUTE VOLUME Normal [facility] Comment on above: Performed By: #### R SPLUS #### [facility] [address] [place] [address] Dr. Geri Pradhan Oxygen (Bld) [Partial pressure] 95.8 mm[Hg] Normal 80.0-100.0 [facility] Comment on above: Performed By: #### R SPLUS #### [facility] [address] [place] [address] Dr. Geri Pradhan Oxygen saturation in Blood 98.0 % Normal 95.0-100.0 [facility] Comment on above: Performed By: #### R SPLUS #### [facility] [address] [place] [address] Dr. Geri Pradhan PCO2 71.5 mmHg Critically high 35.0-45.0 [facility] Comment on above: Performed By: #### R SPLUS #### [facility] [address] [place] [address] Dr. Geri Pradhan PEEP [facility] Comment on above: Performed By: #### R SPLUS #### [facility] [address] [place] [address] Dr. Geri Pradhan pH (Bld) 7.428 [pH] Normal 7.350-7.450 [facility] Comment on above: Performed By: #### R SPLUS #### [facility] [address] [place] [address] Dr. Geri Pradhan [facility] Comment on above: Performed By: #### R SPLUS #### [facility] [address] [place] [address] Dr. Geri Pradhan [facility] Comment on above: Performed By: #### R SPLUS #### [facility] [address] [place] [address] Dr. Geri Pradhan PUNCTURE SITE RR [facility] Comment on above: Performed By: #### R SPLUS #### [facility] [address] [place] [address] Dr. Geri Pradhan [facility] Comment on above: Performed By: #### R SPLUS #### [facility] [address] [place] [address] Dr. Geri Pradhan [facility] Comment on above: Performed By: #### R SPLUS #### [facility] [address] [place] [address] Dr. Geri Pradhan [facility] Comment on above: Performed By: #### R SPLUS #### [facility] [address] [place] [address] Dr. Geri Pradhan BNPon 09-01-2022 Natriuretic peptide B (Bld) [Mass/Vol] 143.0 pg/mL Normal <=900.0 [facility] Comment on above: Performed By: #### R SPLUS #### [facility] [address] [place] [address] Dr. Geri Pradhan CARDIAC BRAYAN ADMITon 023 CK [Catalytic activity/Vol] 21 U/L Critically low 26-192 [facility] Comment on above: Performed By: #### R SPLUS #### [facility] [address] [place] [address] Dr. Geri Pradhan CK.MB [Mass/Vol] 0.78 ng/mL Normal <=3.60 [facility] Comment on above: Performed By: #### R SPLUS #### [facility] [address] [place] [address] Dr. Geri Pradhan HSTROP 6.9 pg/mL Normal 4.0-51.3 [facility] Comment on above: Result Comment: CUT- OFF POINTS HAVE BEEN ESTABLISHED BASED ON THE FOURTH UNIVERSAL DEFINITIONS OF MYOCARDIAL INFARCTION. THE UPPER REFERENCE LIMIT (URL) OF TROPONIN, DEFINED THE 99TH PERCENTILE OF cTnI DISTRIBUTION IN A REFERENCE POPULATION, HAS BEEN CONFIRMED THE DECISION THRESHOLD FOR [place] DIAGNOSIS. Performed By: #### R SPLUS #### [facility] [address] [place] [address] Dr. Geri Pradhan VIN 20 ng/mL Normal 9-82 [facility] Comment on above: Performed By: #### R SPLUS #### [facility] [address] [place] [address] Dr. Geri Pradhan CBC AUTO DIFFon 09-01-2022 BASO # 0.0 103/ul Normal 0.0-0.1 [facility] Comment on above: Performed By: #### C BC #### [facility] [address] [place] [address] Dr. Geri Pradhan Basophils/100 WBC (Bld) 0.2 % Normal 0.2-2.0 [facility] Comment on above: Performed By: #### C BC #### [facility] [address] [place] [address] Dr. Geri Pradhan EO # 0.1 103/ul Normal 0.0-0.7 [facility] Comment on above: Performed By: #### C BC #### [facility] [address] [place] [address] Dr. Geri Pradhan Eosinophils/100 WBC (Bld) 1.5 % Normal 0.9-7.0 [facility] Comment on above: Performed By: #### C BC #### [facility] [address] [place] [address] Dr. Geri Pradhan Erythrocyte distribution width (RBC) [Ratio] 12.8 % Normal 11.0-15.0 [facility] Comment on above: Performed By: #### C BC #### [facility] [address] [place] [address] Dr. Geri Pradhan Hematocrit (Bld) [Volume fraction] 41.8 % Normal 36.0-48.0 [facility] Comment on above: Performed By: #### C BC #### [facility] [address] [place] [address] Dr. Geri Pradhan Hemoglobin (Bld) [Mass/Vol] 13.1 g/dL Normal 12.0-16.0 [facility] Comment on above: Performed By: #### C BC #### [facility] [address] [place] [address] Dr. Geri Pradhan IG # 0.05 10e3/ul Critically high 0.00-0.03 [facility] Comment on above: Performed By: #### C BC #### [facility] [address] [place] [address] Dr. Geri Pradhan IG % 0.5 % Normal 0.0-0.5 [facility] Comment on above: Performed By: #### C BC #### [facility] [address] [place] [address] Dr. Geri Pradhan LYMPH # 2.4 103/ul Normal 1.2-3.8 [facility] Comment on above: Performed By: #### C BC #### [facility] [address] [place] [address] Dr. Geri Pradhan Lymphocytes/100 WBC (Bld) 24.9 % Normal 20.5-60.0 [facility] Comment on above: Performed By: #### C BC #### [facility] [address] [place] [address] Dr. Geri Pradhan MANUAL DIFF REQ NO Normal [facility] Comment on above: Performed By: #### C BC #### [facility] [address] [place] [address] Dr. Geri Pradhan MCH (RBC) [Entitic mass] 27.2 pg Normal 26.7-34.0 [facility] Comment on above: Performed By: #### C BC #### [facility] [address] [place] [address] Dr. Geri Pradhan MCHC (RBC) [Mass/Vol] 31.3 g/dL Normal 29.9-35.2 [facility] Comment on above: Performed By: #### C BC #### [facility] [address] [place] [address] Dr. Geri Pradhan MCV (RBC) [Entitic vol] 86.7 fL Normal 81.0-99.0 [facility] Comment on above: Performed By: #### C BC #### [facility] [address] [place] [address] Dr. Geri Pradhan MONO # 0.9 103/ul Critically high 0.3-0.8 [facility] Comment on above: Performed By: #### C BC #### [facility] [address] [place] [address] Dr. Geri Pradhan Monocytes/100 WBC (Bld) 8.9 % Normal 1.7-12.0 [facility] Comment on above: Performed By: #### C BC #### [facility] [address] [place] [address] Dr. Geri Pradhan NEUT # 6.1 103/ul Normal 1.4-6.5 [facility] Comment on above: Performed By: #### C BC #### [facility] [address] [place] [address] Dr. Geri Pradhan Neutrophils/100 WBC (Bld) 64.0 % Normal 43.0-75.0 [facility] Comment on above: Performed By: #### C BC #### [facility] [address] [place] [address] Dr. Geri Pradhan Platelet mean volume (Bld) [Entitic vol] 9.2 fL Critically low 9.5-13.5 [facility] Comment on above: Performed By: #### C BC #### [facility] [address] [place] [address] Dr. Geri Pradhan PLT 349 103/ul Normal 150-450 [facility] Comment on above: Performed By: #### C BC #### [facility] [address] [place] [address] Dr. Geri Pradhan RBC 4.82 106/ul Normal 4.20-5.40 [facility] Comment on above: Performed By: #### C BC #### [facility] [address] [place] [address] Dr. Geri Pradhan WBC 9.5 103/ul Normal 4.0-11.0 [facility] Comment on above: Performed By: #### C BC #### [facility] [address] [place] [address] Dr. Geri Pradhan CULTURE BLOODon 09-01-2022 Microscopic examination of blood, culture Culture Observations: NO GROWTH AT [address] [facility] Comment on above: Performed By: #### P OCGLUC #### [facility] [address] [place] [address] Dr. Geri Pradhan CULTURE URINEon 09-01-2022 CULTURE URINE Culture Observations : EDUARDO TO FOLLOW. Isolate 1 Pseudomonas aeruginosa 10,000 cfu/mL of Normal [facility] Comment on above: Performed By: #### P OCGLUC #### [facility] [address] [place] [address] Dr. Geri Pradhan ER URINE PROFILEon 3 Bilirubin Ql (U) Negative Normal NEGATIVE [facility] Comment on above: Performed By: #### P OCGLUC #### [facility] [address] [place] [address] Dr. Geri Pradhan Clarity (U) CLEAR Normal CLEAR [facility] Comment on above: Performed By: #### P OCGLUC #### [facility] [address] [place] [address] Dr. Geri Pradhan Color (U) LT. YELLOW Normal YELLOW [facility] Comment on above: Performed By: #### P OCGLUC #### [facility] [address] [place] [address] Dr. Geri Pradhan ERUAHD A micrscopic examination will be performed if indicated. Normal [facility] Comment on above: Performed By: #### P OCGLUC #### [facility] [address] [place] [address] Dr. Geri Pradhan Glucose Ql (U) Negative Normal NEGATIVE [facility] Comment on above: Performed By: #### P OCGLUC #### [facility] [address] [address] [address] Geri Pradhan Hemoglobin Ql (U) TRACE-INTACT Abnormal NEGATIVE [facility] Comment on above: Performed By: #### P OCGLUC #### [facility] [address] [place] [address] Dr. Geri Pradhan Ketones Ql (U) Negative Normal NEGATIVE [facility] Comment on above: Performed By: #### P OCGLUC #### [facility] [address] [address] [address] Geri Pradhan LEUKOCYTES MODERATE Abnormal NEGATIVE [facility] Comment on above: Performed By: #### P OCGLUC #### [facility] [address] [place] [address] Dr. Geri Pradhan Nitrite Ql (U) Negative Normal NEGATIVE [facility] Comment on above: Performed By: #### P OCGLUC #### [facility] [address] [place] [address] Dr. Geri Pradhan pH (U) 6.5 [pH] Normal 5-9 [facility] Comment on above: Performed By: #### P OCGLUC #### [facility] [address] [place] [address] Dr. Geri Pradhan SPEC GRAVITY 1.010 Normal 1.005-<=1.[address] [facility] Comment on above: Performed By: #### P OCGLUC #### [facility] [address] [place] [address] Dr. Geri Pradhan UA PROTEIN Negative Normal NEGATIVE/ TRACE [facility] Comment on above: Performed By: #### P OCGLUC #### [facility] [address] [place] [address] Dr. Geri Pradhan UR MICRO IND INDICATED Normal [facility] Comment on above: Performed By: #### P OCGLUC #### [facility] [address] [place] [address] Dr. Geri Pradhan Urobilinogen Qn (U) 0.2 {Lelia'U}/dL Normal 0.2 - 1. 0 [facility] Comment on above: Performed By: #### P OCGLUC #### [facility] [address] [address] [address] Geri Pradhan LACTATE/LACTIC ACIDon 2022 Lactate [Moles/Vol] 0.7 mmol/L Normal 0.4-2.0 [facility] Comment on above: Performed By: #### T JUAN JOSE, CMP #### [facility] [address] [address] [address] Geri Pradhan PROF 14(COMP METB)on 023 Albumin [Mass/Vol] 3.3 g/dL Critically low 3.4-5.0 Th e [facility] Comment on above: Performed By: #### P OCGLUC #### [facility] [address] [place] [address] Dr. Geri Pradhan Albumin/Globulin [Mass ratio] 0.7 {ratio} Normal [facility] Comment on above: Performed By: #### P OCGLUC #### [facility] [address] [place] [address] Dr. Geri Pradhan ALP [Catalytic activity/Vol] 81 U/L Normal 46-116 [facility] Comment on above: Performed By: #### P OCGLUC #### [facility] [address] [place] [address] Dr. Geri Pradhan ALT [Catalytic activity/Vol] 19 U/L Normal 14-59 [facility] Comment on above: Performed By: #### P OCGLUC #### [facility] [address] [address] [address] Geri Pradhan Anion gap [Moles/Vol] 3.1 mmol/L Normal [facility] Comment on above: Performed By: #### P OCGLUC #### [facility] [address] [place] [address] Dr. Geri Pradhan AST [Catalytic activity/Vol] 16 U/L Normal 15-37 [facility] Comment on above: Performed By: #### P OCGLUC #### [facility] [address] [place] [address] Dr. Geri Pradhan Bilirubin [Mass/Vol] 0.2 mg/dL Normal 0.2-1.0 [facility] Comment on above: Performed By: #### P OCGLUC #### [facility] [address] [address] [address] Geri Pradhan Calcium [Mass/Vol] 9.8 mg/dL Normal 8.5-10.1 [facility] Comment on above: Performed By: #### P OCGLUC #### [facility] [address] [address] [address] Geri Pradhan Chloride [Moles/Vol] 93 mmol/L Critically low 98-107 [facility] Comment on above: Performed By: #### P OCGLUC #### [facility] [address] [address] [address] Geri Pradhan CO2 [Moles/Vol] 45.3 mmol/L Critically high 21.0-32.0 [facility] Comment on above: Performed By: #### P OCGLUC #### [facility] [address] [address] [address] Geri Pradhan Creatinine [Mass/Vol] 0.51 mg/dL Critically low 0.55-1.02 [facility] Comment on above: Performed By: #### P OCGLUC #### [facility] [address] [address] [address] Geri Pradhan EGFR-AF [place] >60 Normal >=60 [facility] Comment on above: Performed By: #### P OCGLUC #### [facility] [address] [address] [address] Geri Pradhan EGFR-NON AF [place] >60 Normal >=60 [facility] Comment on above: Performed By: #### P OCGLUC #### [facility] [address] [address] [address] Geri Pradhan Globulin (S) [Mass/Vol] 4.8 g/dL Normal [facility] Comment on above: Performed By: #### P OCGLUC #### [facility] [address] [address] [address] Geri Pradhan Glucose [Mass/Vol] 98 mg/dL Normal 74-106 [facility] Comment on above: Performed By: #### P OCGLUC #### [facility] [address] [address] [address] Geri Pradhan Potassium [Moles/Vol] 3.4 mmol/L Critically low 3.5-5.1 [facility] Comment on above: Performed By: #### P OCGLUC #### [facility] [address] [address] [address] Geri Pradhan Protein [Mass/Vol] 8.1 g/dL Normal 6.4-8.2 [facility] Comment on above: Performed By: #### P OCGLUC #### [facility] [address] [address] [address] Geri Pradhan Sodium [Moles/Vol] 138 mmol/L Normal 136-145 [facility] Comment on above: Performed By: #### P OCGLUC #### [facility] [address] [place] [address] Dr. Geri Pradhan Urea nitrogen [Mass/Vol] 11.0 mg/dL Normal 7.0-18.0 [facility] Comment on above: Performed By: #### P OCGLUC #### [facility] [address] [place] [address] Dr. Geri Pradhan Urea nitrogen/Creatinine [Mass ratio] 21.6 mg/mg Normal [facility] Comment on above: Performed By: #### P OCGLUC #### [facility] [address] [place] [address] Dr. Geri Pradhan PROTIMEon 09-01-2022 INR Coag (PPP) [Relative time] 0.96 {INR} Normal [facility] Comment on above: Performed By: #### T JUAN JOSE CMP #### [facility] [address] [place] [address] Dr. Geri Pradhan INR GUIDELINES SEE BELOW Normal [facility] Comment on above: Result Comment: KAROL RED INR: 2.0 - 3.0 CONDITIONS NOT LISTED BELOW 2.5 - 3.5 FOR PROSTHETIC HEART VALVE REPLACEMENT 2.5 - 3.5 RECURRENT THROMBOSIS Performed By: #### T JUAN JOSE CMP #### [facility] [address] [place] [address] Dr. Geri Pradhan PT Coag (PPP) [Time] 10.2 s Normal 9.0-11.6 [facility] Comment on above: Performed By: #### T JUAN JOSE, CMP #### [facility] [address] [place] [address] Dr. Geri Pradhan PTTon 09-01-2022 aPTT Coag (Bld) [Time] 25.5 s Normal 22.3-36.2 Th e [facility] Comment on above: Performed By: #### Gerry INGRAM, CMP #### [facility] [address] [place] [address] Dr. Geri Pradhan URINE MICROSCOPIC ONLYon BACTERIA NONE SEEN Normal NONE SEEN [facility] Comment on above: Performed By: #### P OCGLUC #### [facility] [address] [place] [address] Dr. Geri Pradhan Bacteria identified Cx Nom (U) INDICATED Normal [facility] Comment on above: Performed By: #### P OCGLUC #### [facility] [address] [place] [address] Dr. Geri Pradhan CAST NONE SEEN Normal NONE SEEN [facility] Comment on above: Performed By: #### P OCGLUC #### [facility] [address] [place] [address] Dr. Geri Pradhan Crystals LM Nom (Urine sed) NONE SEEN Normal NONE SEEN [facility] Comment on above: Performed By: #### P OCGLUC #### [facility] [address] [place] [address] Dr. Geri Pradhan Epithelial cells LM Ql (Urine sed) FEW Abnormal NONE SEEN /RARE [facility] Comment on above: Performed By: #### P OCGLUC #### [facility] [address] [place] [address] Dr. Geri Pradhan MUCOUS NONE SEEN Normal NONE SEEN [facility] Comment on above: Performed By: #### P OCGLUC #### [facility] [address] [place] [address] Dr. Geri Pradhan RBC 0-2 Normal 0-2 [facility] Comment on above: Performed By: #### P OCGLUC #### [facility] [address] [place] [address] Dr. Geri Pradhan WBC 10-20 Abnormal NONE SEEN [facility] Comment on above: Performed By: #### P OCGLUC #### [facility] [address] [place] [address] Dr. Geri Pradhan XR CHEST 1 Von [...] EAMON ANDREWS Date: 2022-09-01 20:18 Normal [facility] ASPERGILLUS GALACTOMANNAN AN TIGEN DETECTon 05-28-2022 Aspergillus Ag, BAL/Serum 0.07 Index Normal 0.00-0.49 [facility] Comment on above: Result Comment: Perf ormed at: BN Performed By: #### Gerry INGRAM CMP #### [facility] [address] [place] [address] Dr. Geri Pradhan Test Information . Normal [facility] Comment on above: Result Comment: Perf ormed at: TG Performed By: #### Gerry INGRAM CMP #### [facility] [address] [place] [address] Dr. Geri Pradhan ASPERGILLUS AB, QUANTITATIVE DIDon 05-27-2022 Aspergillus flavus Negative Normal Neg:<1:1 [facility] Comment on above: Performed By: #### Gerry INGRAM CMP #### [facility] [address] [place] [address] Dr. Geri Pradhan Aspergillus fumigatus Negative Normal Neg:<1:1 [facility] Comment on above: Performed By: #### Gerry INGRAM CMP #### [facility] [address] [place] [address] Dr. Geri Pradhan Aspergillus niger Negative Normal Neg:<1:1 [facility] Comment on above: Performed By: #### Gerry INGRAM CMP #### [facility] [address] [place] [address] Dr. Geri Pradhan CULTURE SPUTUMon 05-23-2022 CULTURE SPUTUM Culture Observations : NORMAL RESPIRATORY NAVA. Normal [facility] Comment on above: Performed By: #### P OCGLUC #### [facility] [address] [address] [address] Geri Pradhan SPUTUM GRAM STAINon 05-23-[address] [facility] Comment on above: Performed By: #### T JUAN JOSE, CMP #### [facility] [address] [place] [address] Dr. Geri Pradhan DIPHTHEROIDS [facility] Comment on above: Performed By: #### T JUAN JOSE, CMP #### [facility] [address] [place] [address] Dr. Geri Pradhan EPITHELIALS <25 [facility] Comment on above: Performed By: #### Gerry INGRAM, CMP #### [facility] [address] [place] [address] Dr. Geri Pradhan FUNGAL ELEMENTS [facility] Comment on above: Performed By: #### T JUAN JOSE, CMP #### [facility] [address] [address] [address] Geri Pradhan GRAM NEG BACILLI [facility] Comment on above: Performed By: #### T JUAN JOSE, CMP #### [facility] [address] [place] [address] Dr. Geri Pradhan GRAM NEG DIPPLOCOCCI [facility] Comment on above: Performed By: #### Gerry INGRAM, CMP #### [facility] [address] [address] [address] Geri Pradhan GRAM POS BACILLI [facility] Comment on above: Performed By: #### T JUAN JOSE, CMP #### [facility] [address] [address] [address] Geri Pradhan GRAM POSITIVE COCCI MODERATE Normal [facility] Comment on above: Performed By: #### T JUAN JOSE, CMP #### [facility] [address] [place] [address] Dr. Geri Pradhan WBC (Bld) [#/Vol] 10*3/uL [facility] Comment on above: Performed By: #### T JUAN JOSE, [facility] #### [facility] [address] [address] [address] Geri Pradhan BRONCHOSCOPYon 05-09-[address] [facility] [address] Chest WO contraston 05-06 IMPRESSION: 1. Since 02/15/2022, unchanged irregular consolidative [...] any questions regarding this interpretation, please call [phone]. If you are unable to reach us at the number above, please feel free to contact [facility] at [phone]. DIVISION OF RADIOLOGY * * *Final Report* * * DATE OF EXAM: May 06 2022 8:57AM [facility] 0541 - CT CHEST WO IVCON / [...] No abnormality in the imaged upper abdomen. Form Setter Helper (topogram) images: No additional findings. DIVISION OF RADIOLOGY Provider, [facility] - 05/06/2022 * * *Final Report* * * DATE OF EXAM: May 06 2022 8:57AM [facility] 0541 - CT CHEST WO IVCON / [...] No abnormality in the imaged upper abdomen. Form Setter Helper (topogram) images: No additional findings. IMPRESSION IMPRESSION: 1. Since 02/15/2022, unchanged irregular consolidative [...] any questions regarding this interpretation, please call [phone]. If you are unable to reach us at the number above, please feel free to contact [facility] at [phone]. [facility] Radiology Study observation (narrative) [facility] CT Chest WO contrastOrdered By: [facility] Provider on 05-06-2022 [facility] Covid-19 PCR ([facility])on 04-14 SARS-CoV-2 (COVID-19) RNA KRUNAL+probe Ql (Unsp spec) Not detected Normal NOT DETECTED [facility] Comment on above: Result Comment: This test is not yet approved or cleared by the [place] FDA. When there are no FDA-approved or cleared tests available, and other criteria are met, FDA can make tests available under an emergency access mechanism called an Emergency Use Authorization (EUA). The EUA for this test is supported by the [employer] of Health and Human Service's (HHS's) declaration [...] SARS-CoV-2. Performed By: #### R SPLUS #### [facility] [address] [address] [address] Geri Pradhan Covid-19 PCR ([facility])on 03-14 SARS-CoV-2 (COVID-19) RNA KRUNAL+probe Ql (Unsp spec) Not detected Normal NOT DETECTED [facility] Comment on above: Result Comment: This test is not yet approved or cleared by the [place] FDA. When there are no FDA-approved or cleared tests available, and other criteria are met, FDA can make tests available under an emergency access mechanism called an Emergency Use Authorization (EUA). The EUA for this test is supported by the [place] of Health and Human Service's (HHS's) declaration [...] By: #### T JUAN JOSE, CMP #### [facility] [address] [place] [address] Dr. Geri Pradhan INFLUENZA A AND B AGon 04-08 [facility] SEE BELOW Normal [facility] Comment on above: Result Comment: Nega tive for Flu A protein angiten. Infection due to Flu A cannot be ruled out. Flu A angiten in the sample may be below the detection limit of the test. Performed By: #### T JUAN JOSE, CMP #### [facility] [address] [place] [address] Dr. Geri Pradhan [facility] SEE BELOW Normal [facility] Comment on above: Result Comment: Nega tive for Flu B protein antigen. Infection due to Flu B cannot be ruled out. Flu B antigen in the sample may be below the detection limit of the test. Performed By: #### T JUAN JOSE, CMP #### [facility] [address], [place] [address] Dr. Geri Pradhan INFLUENZA A AG Negative Normal NEGATIVE SEE COMMENT The [facility] Comment on above: Performed By: #### T JUAN JOSE, CMP #### [facility] [address], [place] [address] Dr. Geri Pradhan INFLUENZA B AG Negative Normal NEGATIVE SEE COMMENT The [facility] Comment on above: Performed By: #### T JUAN JOSE, CMP #### [facility] [address], [place] [address] Dr. Geri Pradhan INTERNAL CONTROLS Within Normal Limits Normal Wi thin Normal Limits The [facility] Comment on above: Performed By: #### T JUAN JOSE, CMP #### [facility] [address], [place] [address] Dr. Geri Pradhan GLUCOSE, BLOOD (POC)on 03-07 Glucose [Mass/Vol] 84 mg/dL 74 - 99 mg/dL [facility] Comment on above: Location:[facility], [address] [place] [address] , [place], [place], [facility] The Accu-Chek Inform II glucose meter [...] blood gas instrument) in the above situations. [facility] PET+CT Guidance for localiza tion of tumor of Skull base to mid-thigh-- W 18F-FDG [place] 03-07-2022 IMPRESSION: Head and Neck: * No evidence [...] any questions regarding this interpretation, please call [phone]. If you are unable to reach us at the number above, please feel free to contact [facility] at [phone]. DIVISION OF RADIOLOGY * * *Final Report* [...] MUSCULOSKELETAL: There are no hypermetabolic osseous lesions. Form Setter Helper (topogram) images: No additional findings. DIVISION OF RADIOLOGY Provider, [facility] - 03/07/2022 * * *Final Report* * * DATE [...] MUSCULOSKELETAL: There are no hypermetabolic osseous lesions. Form Setter Helper (topogram) images: No additional findings. IMPRESSION IMPRESSION: Head and Neck: * No evidence [...] EST Thank you for allowing us to partici (more content not included)... [facility] Radiology Study observation (narrative) [facility] PET+CT Guidance for localiza tion of tumor of Skull base to mid-thigh-- W 18F-FDG IVOrdered By: Ccf Provider on 03-07-[address] [facility] [address] CHEST W CONon 02-17-2022 CT [...] by: JULES RAMIREZ Date: 2022-02-17 08:[address] [facility] CREATININEon 02-15-2022 Creatinine [Mass/Vol] 0.52 mg/dL Critically low 0.55-1.02 [facility] Comment on above: Performed By: #### R SPLUS #### [facility] [address] [place] [address] Dr. Geri Pradhan EGFR-AF SOL[place] ISLANDER >60 Normal >=60 [facility] Comment on above: Performed By: #### R SPLUS #### [facility] [address] [place] [address] Dr. Geri Pradhan EGFR-NON AF [place] ISLANDER >60 Normal >=60 [facility] Comment on above: Performed By: #### R SPLUS #### [facility] [address] [place] [address] Dr. Geri Pradhan CULTURE SPUTUMon 02-11-2022 CULTURE SPUTUM Isolate 1 Milagros albicans Light growth of Normal [facility] Comment on above: Performed By: #### S PUTCX #### [facility] [address] [place] [address] Dr. Geri Pradhan SPUTUM GRAM STAINon 02-12-[address] [facility] Comment on above: Performed By: #### R SPLUS #### [facility] [address] [place] [address] Dr. Geri Pradhan DIPHTHEROIDS [facility] Comment on above: Performed By: #### R SPLUS #### [facility] [address] [place] [address] Dr. Geri Pradhan EPITHELIALS <[address] [facility] Comment on above: Performed By: #### R SPLUS #### [facility] [address] [place] [address] Dr. Geri Pradhan FUNGAL ELEMENTS [place] The [facility] Comment on above: Performed By: #### R SPLUS #### [facility] [address] [place] [address] Dr. Geri Pradhan GRAM NEG BACILLI Normal [facility] Comment on above: Performed By: #### R SPLUS #### [facility] [address] [place] [address] Dr. Geri Pradhan GRAM NEG DIPPLOCOCCI Normal [facility] Comment on above: Performed By: #### R SPLUS #### [facility] [address] [place] [address] [address] Geri Pradhan GRAM POS BACILLI Normal The [facility] Comment on above: Performed By: #### R SPLUS #### [facility] [address] [place] [address] Dr. Geri Pradhan GRAM POSITIVE COCCI MODERATE Normal [facility] Comment on above: Performed By: #### R SPLUS #### [facility] [address] [place] [address] Dr. Geri Pradhan WBC (Bld) [#/Vol] 10*3/uL Normal [facility] Comment on above: Performed By: #### R SPLUS #### [facility] [address] [place] [address] Dr. Geri Pradhan Covid-19 PCR (CVDTBH)on 11-13 SARS-CoV-2 (COVID-19) RNA KRUNAL+probe Ql (Unsp spec) Detected Critically abnormal NOT DETECTED The [facility] Comment on above: Result Comment: This test is not yet approved or cleared by the [place] FDA. When there are no FDA-approved or cleared tests available, and other criteria are met, FDA can make tests available under an emergency access mechanism called an Emergency Use Authorization (EUA). The EUA for this test is supported by the [employer] of Health and Human Service's (HHS's) declaration [...] used). Performed By: #### C VDTBH #### [facility] [address] [place] [address] Chest W contrast [place] IMPRESSION: 1. Improved appearance to left upper lobe reticulonodular opacities, as above. Persistent area of prominent atelectasis/scarring at the posteromedial aspect of left upper lobe, stable. 2. Extensive emphysematous changes, subsegmental areas of atelectasis/scarring elsewhere, stable. 3. No substantial intrathoracic adenopathy is identified. Transcribe Date/Time: May 30 2021 8:59A Dictated by: DELON PENN MD This examination was interpreted and the report reviewed and electronically signed by: DELON PENN MD on May 30 2021 9:08AM EST Thank you for allowing us to participate in the care of your patient. Should there be any questions regarding this interpretation, please call [phone]. If you are unable to reach us at the number above, please feel free to contact [facility] at [phone]. DIVISION OF RADIOLOGY * * *Final Report* * * DATE OF EXAM: May 29 2021 11:14AM [facility] 0539 - CT CHEST W IVCON / PROCEDURE REASON: Neoplasm of lung * * * * Physician Interpretation * * * * RESULT: EXAMINATION: CHEST CT WITH CONTRAST Indication: Lung carcinoma Technique: Spiral CT acquisition of the chest from the thoracic inlet to the upper abdomen following IV contrast. M: CTCW_4 Contrast: 50 mL Omnipaque [address] Dose-Length Product: 147 mGy*cm CT Dose Reduction Employed: Automated exposure control (AEC) Comparison: CT chest 05/30/2020 RESULT: Limitations: None. Lines, tubes, and devices: None. Lung parenchyma , airways, and pleural space: Extensive centrilobular emphysematous changes are appreciated. Minimal biapical pleural scarring, stable. The trachea and major airways are patent. Subsegmental atelectasis/scarring right middle lobe, left lingula, and lateral aspect right lower lobe are again noted. The previously identified reticulonodular infiltrate within the left upper lobe has resolved. No substantial pleural effusion. Area of atelectasis/scarring at the posteromedial aspect of the left upper lobe, stable. 3 mm subpleural right upper lobe nodule, image 117, series 3, stable. Lower neck, lymph nodes, and mediastinum: The visualized thyroid gland is stable. No substantial supraclavicular or axillary lymphadenopathy. Scattered subcentimeter mediastinal lymph nodes are again identified, stable. No substantial mediastinal or hilar adenopathy is appreciated. Heart, pericardium, and thoracic vessels: The thoracic aorta is normal in caliber. A small amount of coronary artery calcification is again noted. No substantial pericardial effusion. Biliary Tract: No bile duct dilation. No osseous destructive process. Small fat-containing midline epigastric hernia, incompletely imaged, felt to be stable. Upper Abdomen: Limited images through the upper abdomen appears stable. Form Setter Helper (topogram) images: No additional findings. DIVISION OF RADIOLOGY Provider, [facility] - 05/30/2021 * * *Final Report* * * DATE OF EXAM: May 29 2021 11:14AM [facility] 0539 - CT CHEST W IVCON / PROCEDURE REASON: Neoplasm of lung * * * * Physician Interpretation * * * * RESULT: EXAMINATION: CHEST CT WITH CONTRAST Indication: Lung carcinoma Technique: Spiral CT acquisition of the chest from the thoracic inlet to the upper abdomen following IV contrast. M: CTCW_4 Contrast: 50 mL Omnipaque [address] Dose-Length Product: 147 mGy*cm CT Dose Reduction Employed: Automated exposure control (AEC) Comparison: CT chest 05/30/2020 RESULT: Limitations: None. Lines, tubes, and devices: None. Lung parenchyma , airways, and pleural space: Extensive centrilobular emphysematous changes are appreciated. Minimal biapical pleural scarring, stable. The trachea and major airways are patent. Subsegmental atelectasis/scarring right middle lobe, left lingula, and lateral aspect right lower lobe are again noted. The previously identified reticulonodular infiltrate within the left upper lobe has resolved. No substantial pleural effusion. Area of atelectasis/scarring at the posteromedial aspect of the left upper lobe, stable. 3 mm subpleural right upper lobe nodule, image 117, series 3, stable. Lower neck, lymph nodes, and mediastinum: The visualized thyroid gland is stable. No substantial supraclavicular or axillary lymphadenopathy. Scattered subcentimeter mediastinal lymph nodes are again identified, stable. No substantial mediastinal or hilar adenopathy is appreciated. Heart, pericardium, and thoracic vessels: The thoracic aorta is normal in caliber. A small amount of coronary artery calcification is again noted. No substantial pericardial effusion. Biliary Tract: No bile duct dilation. No osseous destructive process. Small fat-containing midline epigastric hernia, incompletely imaged, felt to be stable. Upper Abdomen: Limited images through the upper abdomen appears stable. Form Setter Helper (topogram) images: No additional findings. IMPRESSION IMPRESSION: 1. Improved appearance to left upper lobe reticulonodular opacities, as above. Persistent area of prominent atelectasis/scarring at the posteromedial aspect of left upper lobe, stable. 2. Extensive emphysematous changes, subsegmental areas of atelectasis/scarring elsewhere, stable. 3. No substantial intrathoracic adenopathy is identified. Transcribe Date/Time: May 30 2021 8:59A Dictated by: DELON PENN MD This examination was interpreted and the report reviewed and electronically signed by: DELON PENN MD on May 30 2021 9:08AM EST Thank you for allowing us to participate in the care of your patient. Should there be any questions regarding this interpretation, please call [phone]. If you are unable to reach us at the number above, please feel free to contact [facility] at [phone]. [facility] CT Chest W contrast IVOrdere d By: Ccf Provider on 05-30-[address] [facility] [address] Chest W contrast [place] Radiology Study observation (narrative) Jose Cruz santiago [facility] General Surgery Office/Clini c Noteon 03-25-2021 General Surgery Office/Clinic Note Chief Complaint in-office excisional biopsy HPI Staff Presents for in-office excisional biopsy right protestant and right lower extremity. No change since last evaluation. History of Present Illness here for excision of right protestant and RLE lesions; no change since recent [...] and draped; anesthetized with 1% lidocaine; right protestant lesion excised in an elliptical fashion down [...] Cardiac arrest: Mother, Father and Sister. Normal [facility] Comment on above: Result Comment: Elec tronically Signed By: JIM DAVENPORT, Jose Domínguez\Date and Time Signed: 03/25/21 17:02 EST Ambulatory Clinical Summaryo n 02-12-2021 Ambulatory Clinical Summary {[id number]}CD:[id number] Normal [facility] General Surgery Office/Clini c Noteon 02-12-2021 General Surgery Office/Clinic Note Chief Complaint follow up in-office excisional biopsy HPI Staff 11 day post operative follow up post in-office excisional biopsy right protestant and right lower extremity. Sutures intact. Denies bleeding or drainage from incision site. History of Present Illness 11 days s/p excisional biopsy changing lesions right protestant and right lower extremity; doing well, no drainage; protestant lesion basal cell carcinoma, margins not commented [...] Cardiac arrest: Mother, Father and Sister. Normal [facility] Comment on above: Result Comment: Elec tronically Signed By: JIM DAVENPORT, Jose Domínguez\Date and Time Signed: 02/12/21 13:16 EDT Pathology Noteon 02-06-2021 Pathology Note [id number] 0CD:127 Normal [facility] Ambulatory Clinical Summaryo n 01-11-2021 Ambulatory Clinical Summary {[id number]}CD:[id number] Normal [facility] Ambulatory Clinical Summary {[id number]}CD:[id number] Normal [facility] Physician Referralon 021 Physician Referral [id number] 0CD:127 Normal [facility] MUA48yn 03-02-2018 Protein mass conc NAME : ELAINE GUERRERO D : [id number] : 1960 Gender : FemaleRace : CaucasianORD : [id number] Procedure Date : Mar 02 2018 12:58:22Edit Date : Mar 02 2018 14:15:37 Diagnosis:NORMAL SINUS RHYTHMRIGHT ATRIAL ENLARGEMENTMINIMAL VOLTAGE CRITERIA FOR LVH, MAY BE NORMAL VARIANTBORDERLINE ECGNO PREVIOUS ECGS AVAILABLEConfirmed by CORNELIA ROGERS M.D. ([id number]) on 03/02/2018 2:15:27 PM Ventricular Rate : 86 BPMAtrial Rate : 86 BPMP-R Interval : 178 msQRS Duration : 72 msQ-T Interval : 374 msQTC Calculation(Bezet) : 447 msP Paxton : 88 degreesR Paxton : 78 degreesT Paxton : 79 degrees Test Reason : Location : 49 : [place] Overread By : KEN M.D.,VIJAYEdited By : KEN Maier,VIJAYReferred By : DUGLAS FERNANDEZAcquired by : CELESTE GILLESPIE [facility] Vital Signs Date Time Vital Sign Value Performing Clinician Facility 03-01-2024 11:10-0500 Body height 162.6 cm Carla Montague MD Work Phone: [facility] 03-01-2024 11:10-0500 Body mass index (BMI) [Ratio] 16.31 kg/m2 Carla Montague MD Work Phone: [facility] 03-01-2024 11:10-0500 Body weight 43.09 kg Carla Montague MD Work Phone: [facility] 03-01-2024 11:10-0500 Diastolic blood pressure 73 mm[Hg] Carla Montague MD Work Phone: [facility] 03-01-2024 11:10-0500 Systolic blood pressure 115 mm[Hg] Carla Montague MD Work Phone: [facility] 02-23-2024 14:30-0500 Body height 162.56 cm Adithya Kenyon MD Work Phone: [facility] 02-23-2024 14:30-0500 Body mass index (BMI) [Ratio] 15.7 kg/m2 Adithya Kenyon MD Work Phone: [facility] 02-23-2024 14:30-0500 Body weight 41.73 kg Adithya Kenyon MD Work Phone: [facility] 02-23-2024 14:30-0500 Diastolic blood pressure 64 mm[Hg] Adithya Kenyon MD Work Phone: [facility] 02-23-2024 14:30-0500 Heart rate 104 /min Adithya Kenyon MD Work Phone: [facility] 02-23-2024 14:30-0500 Inhaled oxygen flow rate 2 L/min Adithya Kenyon MD Work Phone: [facility] 02-23-2024 14:30-0500 Respiratory rate 20 /min Adithya Kenyon MD Work Phone: [facility] 02-23-2024 14:30-0500 SaO2% (BldA) [Mass fraction] 96 % Adithya Kenyon MD Work Phone: [facility] 02-23-2024 14:30-0500 Systolic blood pressure 116 mm[Hg] Adithya Kenyon MD Work Phone: [facility] 01-29-2024 13:46-0400 Body temperature 97.7 [degF] Abdi Israel MD Work Phone: [facility] 01-29-2024 13:46-0400 Diastolic blood pressure 78 mm[Hg] Abdi Israel MD Work Phone: [facility] 01-29-2024 13:46-0400 Heart rate 112 /min Abdi Israel MD Work Phone: [facility] 01-29-2024 13:46-0400 Respiratory rate 16 /min Abdi Israel MD Work Phone: [facility] 01-29-2024 13:46-0400 SaO2% (BldA) [Mass fraction] 93 % Abdi Israel MD Work Phone: [facility] Comment on above: 2 liters 01-29-2024 13:46-0400 Systolic blood pressure 125 mm[Hg] Abdi Israel MD Work Phone: [facility] 12-24-2023 12:00-0400 Diastolic blood pressure 80 mm[Hg] MD Adithya Kenyon Work Phone: [facility] 12-24-2023 12:00-0400 Heart rate 106 /min MD Adithya Kenyon Work Phone: [facility] 12-24-2023 12:00-0400 Inhaled oxygen flow rate 2 L/min MD Adithya Kenyon Work Phone: [facility] 12-24-2023 12:00-0400 Respiratory rate 18 /min MD Adithya Kenyon Work Phone: [facility] 12-24-2023 12:00-0400 SaO2% (BldA) [Mass fraction] 96 % MD Adithya Kenyon Work Phone: [facility] 12-24-2023 12:00-0400 Systolic blood pressure 135 mm[Hg] MD Adithya Kenyon Work Phone: [facility] 12-24-2023 06:00-0400 Body weight 39.5 kg MD Adithya Kenyon Work Phone: [facility] 12-24-2023 04:00-0400 Body temperature 97.9 [degF] MD Adithya Kenyon Work Phone: [facility] 12-21-2023 13:57-0400 Body height 162.56 cm MD Adithya Kenyon Work Phone: [facility] 12-20-2023 22:30-0400 Diastolic blood pressure 78 mm[Hg] MD Adithya Kenyon Work Phone: [facility] 12-20-2023 22:30-0400 Heart rate 107 /min MD Adithya Kenyon Work Phone: [facility] 12-20-2023 22:30-0400 Inhaled oxygen flow rate 2 L/min MD Adithya Kenyon Work Phone: [facility] 12-20-2023 22:30-0400 Respiratory rate 18 /min MD Adithya Kenyon Work Phone: [facility] 12-20-2023 22:30-0400 SaO2% (BldA) [Mass fraction] 94 % MD Adithya Kenyon Work Phone: [facility] 12-20-2023 22:30-0400 Systolic blood pressure 126 mm[Hg] MD Adithya Kenyon Work Phone: [facility] 12-20-2023 21:00-0400 Inhaled oxygen concentration 28 % MD Adithya Kenyon Work Phone: [facility] 12-20-2023 20:01-0400 Body height 162.56 cm MD Adithya Kenyon Work Phone: [facility] 12-20-2023 20:01-0400 Body weight 42.18 kg MD Adithya Kenyon Work Phone: [facility] 12-20-2023 19:49-0400 Body temperature 97.3 [degF] MD Adithya Kenyon Work Phone: [facility] 12-03-2023 09:31-0400 Body height 162.56 cm [facility] 12-03-2023 09:31-0400 Body mass index (BMI) [Ratio] 16 kg/m2 [facility] 12-03-2023 09:31-0400 Body temperature 97.8 [degF] [facility] 12-03-2023 09:31-0400 Body weight 42.18 kg [facility] 12-03-2023 09:31-0400 Diastolic blood pressure 72 mm[Hg] [facility] 12-03-2023 09:31-0400 Heart rate 100 /min [facility] 12-03-2023 09:31-0400 Inhaled oxygen flow rate 2 L/min [facility] 12-03-2023 09:31-0400 Respiratory rate 20 /min [facility] 12-03-2023 09:31-0400 SaO2% (BldA) [Mass fraction] 94 % [facility] 12-03-2023 09:31-0400 Systolic blood pressure 115 mm[Hg] [facility] 11-17-2023 14:50-0400 Body height 162.6 cm Pacc 1 Work Phone: [facility] 11-17-2023 14:50-0400 Body mass index (BMI) [Ratio] 16.01 kg/m2 Pacc 1 Work Phone: [facility] 11-17-2023 14:50-0400 Body temperature 97.2 [degF] Pacc 1 Work Phone: [facility] 11-17-2023 14:50-0400 Body weight 42.3 kg Pacc 1 Work Phone: [facility] 11-17-2023 14:50-0400 Diastolic blood pressure 64 mm[Hg] Pacc 1 Work Phone: [facility] 11-17-2023 14:50-0400 Heart rate 118 /min Pacc 1 Work Phone: [facility] 11-17-2023 14:50-0400 Respiratory rate 16 /min Pacc 1 Work Phone: [facility] 11-17-2023 14:50-0400 SaO2% (BldA) [Mass fraction] 95 % Pacc 1 Work Phone: [facility] Comment on above: 2l 11-17-2023 14:50-0400 Systolic blood pressure 121 mm[Hg] Pacc 1 Work Phone: [facility] 09-29-2023 13:29-0400 Body height 162.56 cm [facility] 09-29-2023 13:29-0400 Body mass index (BMI) [Ratio] 16.1 kg/m2 [facility] 09-29-2023 13:29-0400 Body temperature 96.2 [degF] [facility] 09-29-2023 13:29-0400 Body weight 42.63 kg [facility] 09-29-2023 13:29-0400 Diastolic blood pressure 74 mm[Hg] [facility] 09-29-2023 13:29-0400 Heart rate 92 /min [facility] 09-29-2023 13:29-0400 Respiratory rate 20 /min [facility] 09-29-2023 13:29-0400 SaO2% (BldA) [Mass fraction] 91 % [facility] 09-29-2023 13:29-0400 Systolic blood pressure 134 mm[Hg] [facility] 09-16-2023 11:30-0400 Diastolic blood pressure 69 mm[Hg] Khushboo Mcintyre MD, Work Phone: [facility] 09-16-2023 11:30-0400 Heart rate 102 /min Khushboo Mcintyre MD, MD Work Phone: [facility] 09-16-2023 11:30-0400 Respiratory rate 16 /min Khushboo Mcintyre MD, MD Work Phone: [facility] 09-16-2023 11:30-0400 SaO2% (BldA) [Mass fraction] 97 % Khushboo Mcintyre MD, MD Work Phone: [facility] 09-16-2023 11:30-0400 Systolic blood pressure 146 mm[Hg] Khushboo Mcintyre MD, MD Work Phone: [facility] 09-16-2023 09:02-0400 Body temperature 97.5 [degF] Khushboo Mcintyre MD, MD Work Phone: [facility] 05-17-2023 12:14-0500 Heart rate 120 /min [facility] 05-17-2023 12:14-0500 Respiratory rate 22 /min [facility] 05-17-2023 11:04-0500 Diastolic blood pressure 76 mm[Hg] [facility] 05-17-2023 11:04-0500 Inhaled oxygen flow rate 2 L/min [facility] 05-17-2023 11:04-0500 SaO2% (BldA) [Mass fraction] 97 % [facility] 05-17-2023 11:04-0500 Systolic blood pressure 117 mm[Hg] [facility] 05-17-2023 07:32-0500 Body temperature 97.4 [degF] [facility] 05-17-2023 03:19-0500 Body weight 39.2 kg [facility] 05-14-2023 16:31-0500 Body height 162.56 cm [facility] 05-14-2023 01:40-0500 Diastolic blood pressure 57 mm[Hg] [facility] 05-14-2023 01:40-0500 Heart rate 119 /min [facility] 05-14-2023 01:40-0500 Inhaled oxygen flow rate 2 L/min [facility] 05-14-2023 01:40-0500 Respiratory rate 22 /min [facility] 05-14-2023 01:40-0500 SaO2% (BldA) [Mass fraction] 91 % [facility] 05-14-2023 01:40-0500 Systolic blood pressure 119 mm[Hg] [facility] 05-13-2023 16:49-0500 Body height 162.56 cm [facility] 05-13-2023 16:49-0500 Body temperature 97.9 [degF] [facility] 05-13-2023 16:49-0500 Body weight 40.36 kg [facility] 11-27-2022 10:34-0400 Body temperature 96.01 [degF] Abdi Israel MD Work Phone: [facility] 11-27-2022 10:34-0400 Body weight 45.18 kg Abid Israel MD Work Phone: [facility] 11-27-2022 10:34-0400 Diastolic blood pressure 82 mm[Hg] Abdi Israel MD Work Phone: [facility] 11-27-2022 10:34-0400 Heart rate 110 /min Abdi Israel MD Work Phone: [facility] 11-27-2022 10:34-0400 Respiratory rate 20 /min Abdi Israel MD Work Phone: [facility] 11-27-2022 10:34-0400 SaO2% (BldA) [Mass fraction] 89 % Abdi Israel MD Work Phone: [facility] 11-27-2022 10:34-0400 Systolic blood pressure 132 mm[Hg] Abdi Israel MD Work Phone: [facility] 06-26-2022 15:00-0400 Body height 162.56 cm Jose Conde Other [employer] Other 06-26-2022 15:00-0400 Body mass index (BMI) [Ratio] 18.02 kg/m2 Jose Conde Other [employer] Other 06-26-2022 15:00-0400 Body temperature 97.2 [degF] Jose Elton Other [employer] Other 06-26-2022 15:00-0400 Body weight 47.63 kg Jose Elton Other [employer] Other 06-26-2022 15:00-0400 Diastolic blood pressure 80 mm[Hg] Jose Conde Other [employer] Other 06-26-2022 15:00-0400 Systolic blood pressure 128 mm[Hg] Jose Elton Other [employer] Other 06-02-2022 14:09-0500 Body temperature 97.7 [degF] Abdi Israel MD Work Phone: [facility] 06-02-2022 14:09-0500 Body weight 49.35 kg Abdi Israel MD Work Phone: [facility] 06-02-2022 14:09-0500 Diastolic blood pressure 78 mm[Hg] Abdi Israel MD Work Phone: [facility] 06-02-2022 14:09-0500 Heart rate 116 /min Abdi Israel MD Work Phone: [facility] 06-02-2022 14:09-0500 Respiratory rate 18 /min Abdi Israel MD Work Phone: [facility] 06-02-2022 14:09-0500 SaO2% (BldA) [Mass fraction] 89 % Abdi Israel MD Work Phone: [facility] 06-02-2022 14:09-0500 Systolic blood pressure 125 mm[Hg] Abdi Israel MD Work Phone: [facility] 05-22-2022 15:15-0500 Body height 162.56 cm Jose Conde Other [employer] Other 05-22-2022 15:15-0500 Body mass index (BMI) [Ratio] 18.02 kg/m2 Jose Conde Other [employer] Other 05-22-2022 15:15-0500 Body temperature 98.2 [degF] Jose Conde Other [employer] Other 05-22-2022 15:15-0500 Body weight 47.63 kg Jose Conde Other [employer] Other 05-22-2022 15:15-0500 Diastolic blood pressure 78 mm[Hg] Jose Elton Other [employer] Other 05-22-2022 15:15-0500 Systolic blood pressure 130 mm[Hg] Jose Elton Other [employer] Other 05-09-2022 10:30-0500 Diastolic blood pressure 80 mm[Hg] Yasmin Waggoner MD Work Phone: [facility] 05-09-2022 10:30-0500 Heart rate 99 /min Yasmin Waggoner MD Work Phone: [facility] 05-09-2022 10:30-0500 Respiratory rate 16 /min Yasmin Waggoner MD Work Phone: [facility] 05-09-2022 10:30-0500 SaO2% (BldA) [Mass fraction] 97 % Yasmin Waggoner MD Work Phone: [facility] 05-09-2022 10:30-0500 Systolic blood pressure 134 mm[Hg] Yasmin Waggoner MD Work Phone: [facility] 05-09-2022 10:02-0500 Body temperature 98.2 [degF] Yasmin Waggoner MD Work Phone: [facility] 05-09-2022 07:03-0500 Body height 162.6 cm Yasmin Waggoner MD Work Phone: [facility] 05-09-2022 07:03-0500 Body weight 47.63 kg Yasmin Waggoner MD Work Phone: [facility] 03-14-2022 11:22-0500 Body temperature 97.81 [degF] Abdi Israel MD Work Phone: [facility] 03-14-2022 11:22-0500 Body weight 49.9 kg Abdi Israel MD Work Phone: [facility] 03-14-2022 11:22-0500 Heart rate 101 /min Abdi Israel MD Work Phone: [facility] 03-14-2022 11:22-0500 Respiratory rate 16 /min Abdi Isreal MD Work Phone: [facility] 03-14-2022 11:22-0500 SaO2% (BldA) [Mass fraction] 96 % Abdi Israel MD Work Phone: [facility] 06-06-2021 10:01-0500 Body temperature 97.7 [degF] Abdi Israel MD Work Phone: [facility] 06-06-2021 10:01-0500 Body weight 51.71 kg Abdi Israel MD Work Phone: [facility] 06-06-2021 10:01-0500 Diastolic blood pressure 67 mm[Hg] Abdi Israel MD Work Phone: [facility] 06-06-2021 10:01-0500 Heart rate 97 /min Abdi Israel MD Work Phone: [facility] 06-06-2021 10:01-0500 Respiratory rate 20 /min Abdi Israel MD Work Phone: [facility] 06-06-2021 10:01-0500 SaO2% (BldA) [Mass fraction] 93 % Abdi Israel MD Work Phone: [facility] 06-06-2021 10:01-0500 Systolic blood pressure 120 mm[Hg] Abdi Israel MD Work Phone: [facility] Encounters Encounter Date Encounter Type Care Provider Facility Start: 03-01-2024 End: 03-01-2024 John Montague MD Work Phone: [facility] Start: 03-01-2024 End: 03-01-2024 John Montague MD Work Phone: [facility] Start: 03-01-2024 End: 03-01-2024 Patient encounter procedure Carla Montague MD Work Phone: [facility] Comment on above: Right ear impacted c erumen (Primary Dx); Foreign body of left ear, initial encounter Start: 03-01-2024 End: 03-01-2024 ambulatory CARLA MONTAGUE Not Available Start: 02-26-2024 End: 02-26-2024 Patient encounter procedure Adithya Kenyon MD Work Phone: [facility] Work Phone: Start: 02-26-2024 End: 02-26-2024 ambulatory Adithya Kenyon MD Work Phone: [facility] Work Phone: Start: 02-23-2024 End: 02-23-2024 ambulatory Adithya Kenyon MD Work Phone: [facility] Work Phone: Start: 02-23-2024 End: 02-23-2024 Patient encounter procedure Adithya Kenyon MD Work Phone: [facility] Work Phone: Start: 02-17-2024 End: 02-17-2024 Telephone encounter Abdi Israel MD Work Phone: Radiation Oncology Start: 01-29-2024 End: 01-29-2024 ambulatory ABDI ISRAEL Facility:[facility] Start: 01-29-2024 End: 01-29-2024 Patient encounter procedure Abdi Israel MD Work Phone: Radiation Oncology Comment on above: Non-small cell cance r of left lung (HCC) (Primary Dx) Start: 01-18-2024 End: 01-18-2024 ambulatory ABDI ISRAEL Facility:[facility] Start: 01-18-2024 End: 01-18-2024 Subsequent hospital visit by physician Arrival Time Radiology Work Phone: Radiology Pet [facility] Comment on above: Malignant neoplasm o f unspecified part of unspecified bronchus or lung (HCC) [C34.90] Start: 12-24-2023 End: 12-28-2023 Telephone encounter Abdi Israel MD Work Phone: [facility] Comment on above: Appointment Confirma tion Start: 12-21-2023 Non-patient / Non-visit MD Eloina Kenyon Work Phone: [facility] Work Phone: Start: 12-21-2023 End: 12-24-2023 Evaluation and management of inpatient MD Adithya Kenyon Work Phone: [facility] Work Phone: Start: 12-20-2023 Evaluation and manag ement of inpatient MD Adithya Kenyon Work Phone: [facility] Work Phone: Start: 12-20-2023 observation encounter MD Idalia Kenyon Work Phone: [facility] Work Phone: Start: 12-03-2023 End: 12-03-2023 ambulatory [facility] Work Phone: Start: 12-03-2023 End: 12-03-2023 Patient encounter procedure [facility] Work Phone: Start: 11-19-2023 Telephone encounter Teo Craft MD Work Phone: [facility] [place] Comment on above: Patient Update Start: 11-18-2023 End: 11-18-2023 ambulatory TEO CRAFT Facility:[facility] Start: 11-17-2023 End: 11-17-2023 ambulatory ADITHYA [place] Zachary Facility:[facility] Start: 11-17-2023 Encounter for other preprocedural examination [facility] Start: 11-17-2023 End: 11-17-2023 Admission to establishment [place] [id number] Work Phone: Pre Anesthesia Start: 11-17-2023 End: 11-17-2023 Anesthesia consultation [place] [id number] Work Phone: Pre Anesthesia Comment on above: Preoperative examina tion (Primary Dx); 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); Non-small cell cancer of left lung (HCC); Chronic respiratory failure with hypoxia (HCC); COPD, severe (HCC); Supplemental oxygen dependent; Former smoker Start: 11-17-2023 End: 11-17-2023 Preprocedural examination done [place] [id number] Work Phone: [facility] Work Phone: Start: 11-16-2023 End: 12-09-2023 Telephone encounter Abdi Israel MD Work Phone: Radiation Oncology Comment on above: Results Start: 10-27-2023 End: 10-27-2023 ambulatory TEO CRAFT Facility:[facility] Start: 10-27-2023 End: 10-27-2023 Patient encounter procedure Teo Craft MD Work Phone: Otolaryngology Comment on above: Lymphadenopathy (Marysol rowan Dx); Non-small cell cancer of left lung (HCC); 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) Start: 09-29-2023 End: 09-29-2023 ambulatory [facility] Work Phone: Start: 09-29-2023 End: 09-29-2023 Patient encounter procedure [facility] Work Phone: Start: 09-21-2023 Telephone encounter Abdi Israel MD Work Phone: Cancer [facility] Comment on above: Appointment Confirma tion Start: 09-16-2023 ambulatory KHUSHBOO MCINTYRE Facility: [facility] Start: 09-16-2023 End: 09-16-2023 Subsequent hospital visit by physician Khushboo Mcintyre MD Work Phone: [id number] Comment on above: Malignant neoplasm o f unspecified part of unspecified bronchus or lung (HCC) [C34.90] Start: 09-14-2023 End: 09-14-2023 ambulatory ADITHYA KENYON Facility:[facility] Start: 09-10-2023 End: 09-10-2023 ambulatory ANA DRIVER Not Available Start: 09-09-2023 Orders Only Osito Galicia MD Work Phone: [facility] Comment on above: Neoplasm (Primary Dx ) Start: 09-08-2023 Telephone encounter Abdi Israel MD Work Phone: [facility] Comment on above: Cervical lymph node bx Biopsy Request Start: 09-01-2023 End: 09-01-2023 ambulatory ABDI ISRAEL Facility:[facility] Start: 09-01-2023 End: 09-01-2023 Subsequent hospital visit by physician Arrival Time Radiology Work Phone: Radiology [facility] Comment on above: Malignant neoplasm o f unspecified part of unspecified bronchus or lung (HCC) [C34.90] Start: 08-17-2023 End: 08-17-2023 ambulatory CARLA H TIMMIS Not Available Start: 08-14-2023 Telephone encounter Abdi Israel MD Work Phone: Radiation Oncology Comment on above: Patient Update Start: 07-14-2023 End: 07-14-2023 ambulatory ANA DRIVER Not Available Start: 05-25-2023 End: 05-25-2023 ambulatory ABDI ISRAEL Facility:[facility] Start: 05-20-2023 Telephone encounter Abdi Israel MD Work Phone: Radiation Oncology Comment on above: Patient Update; Futu re Appointment Start: 05-14-2023 End: 05-17-2023 Evaluation and management of inpatient Adithya Kenyon Facility:[facility] Start: 05-14-2023 Non-patient / Non-visit [facility] Work Phone: Start: 04-09-2023 End: 04-09-2023 ambulatory ANA Garrick LION Not Available Start: 11-27-2022 End: 11-28-2022 Patient encounter procedure Abdi Israel MD Work Phone: Radiation Oncology Comment on above: Neoplasm of lung (Pr imary Dx) Start: 11-18-2022 Telephone encounter Rosa Rojas Hematology/Oncology Comment on above: Appointment Start: 09-02-2022 End: 09-05-2022 Evaluation and management of inpatient DR ADITHYA KENYON . Facility:[facility] Start: 06-26-2022 End: 06-26-2022 ambulatory Jose Conde Other [employer] Other Start: 06-26-2022 Office outpatient vi sit 25 minutes Jose Conde [facility] Start: 06-10-2022 End: 06-10-2022 ambulatory Jose Conde Other [employer] Other Start: 06-10-2022 Telephone encounter Jose Conde [facility] Start: 06-02-2022 End: 06-02-2022 Patient encounter procedure Abdi Israel MD Work Phone: Radiation Oncology Comment on above: Non-small cell cance r of left lung (HCC) (Primary Dx) Start: 05-23-2022 End: 05-23-[address] JOSE CONDE Facility:[facility] Start: 05-22-2022 End: 05-23-[address] JOSE CONDE [employer] Other Start: 05-22-2022 Office outpatient ne w 45 minutes Jose Blank [facility] Start: 05-14-2022 Telephone encounter Abdi Israel MD Work Phone: Radiation Oncology Comment on above: Appointment Start: 05-09-2022 End: 05-09-2022 Subsequent hospital visit by physician Yasmin Waggoner MD Work Phone: Admitting Comment on above: Bronchiolar disease [J98.09] Start: 05-08-2022 Encounter for preprocedural laboratory examination DR DOCTOR DAS [facility] Start: 05-06-2022 End: 05-06-[address] DOCTOR DAS Facility:[facility] Start: 05-06-2022 End: 05-06-2022 Encounter for preprocedural laboratory examination DR DOCTOR DAS Facility:[facility] Start: 05-06-2022 End: 05-06-2022 Subsequent hospital visit by physician Arrival Time Radiology Work Phone: Radiology Pet CT Comment on above: Lung mass [R91.8] Start: 04-28-2022 End: 04-28-2022 ambulatory Vitor Kaur MD Work Phone: Pulmonology Comment on above: Non-small cell cance r of left lung (HCC) (Primary Dx); Lung mass; Centrilobular emphysema (HCC) Start: 04-28-2022 End: 04-28-2022 Telemedicine consultation with patient Vitor Kaur MD Work Phone: [facility] Start: 04-24-2022 Telephone encounter Florina Hassan CT Pulmonary Medicine Comment on above: Appointment (PreOp B ronneil) Start: 04-23-2022 Orders Only Alicja Reece APRN.MERCHANDISE TEAM MANAGER Work Phone: Admitting Comment on above: Preoperative examina tion (Primary Dx) Appointment Start: 04-23-2022 Preprocedural examin ation done Alicja Reece APRN.MERCHANDISE TEAM MANAGER Work Phone: Admitting Start: 04-22-2022 ambulatory Vitor [...] (HCC) (Primary Dx) Start: 03-07-2022 End: 03-07-2022 Subsequent hospital visit by physician Arrival Time Radiology Work Phone: Radiology Pet CT Comment on above: Neoplasm of lung [D4 9.1] Start: 02-20-2022 Telephone encounter Abdi Israel MD [...] (HCC) (Primary Dx); Neoplasm of lung Start: 05-29-2021 End: 05-29-2021 Subsequent hospital visit by physician Arrival Time Radiology Work Phone: Radiology [facility] CT Comment on above: Neoplasm of lung [D4 9.1] Start: 03-02-2018 Patient encounter procedure [facility] Start: 03-24-2017 Ambulatory JAYE HOUGH Facil [id number] Start: 03-24-2017 Ambulatory Adithya Kenyon Fac ility:[id number] Procedures Date Procedure Procedure Detail Performing Clinician Start: 02-26-2024 Plain chest X-ray Idalia Kenyon MD Work Phone: Start: 01-18-2024 Ct thorax w/contrast material Abdi Israel MD Work Phone: Start: 12-22-2023 Aerobic microbial culture Adithya Kenyon MD Work Phone: Start: 12-22-2023 Gram stain microscopy D nicolasa Kenyon MD Work Phone: Start: 12-22-2023 Investigation of transfusion reaction MD Adithya Kenyon Work Phone: Start: 12-21-2023 Methicillin resistan t Staphylococcus aureus culture MD Adithya Kenyon Work Phone: Start: 12-21-2023 Respiratory Panel (PCR) MD Adithya Kenyon Work Phone: Start: 12-21-2023 Respiratory Panel (PCR) Adithya Kenyon MD Work Phone: Start: 12-20-2023 Plain chest X-ray MD Trujillo Work Phone: Start: 10-27-2023 US NECK (POC) HNI USE ONLY Teo Craft MD Work Phone: Start: 09-01-[address] atten uation skull base mid-thigh Abdi Israel MD Work Phone: Start: 09-01-2023 Gluc bld gluc mntr d ev cleared fda spec home use [facility] Provider Start: 05-09-2022 Brnchsc incl fluor g dnce dx w/cell washg spx Abdi Israel MD Work Phone: Start: 05-06-2022 Ct thorax w/o contra st material Vitor Kaur MD Work Phone: Start: 03-07-[address] atten uation skull base mid-thigh Abdi Israel MD Work Phone: Start: 03-07-2022 Gluc bld gluc mntr d ev cleared fda spec home use [facility] Provider Start: 06-06-2021 Adult depression scr eening assessment Abdi Israel MD Work Phone: Start: 05-29-2021 Ct thorax w/contrast material Abdi Israel MD Work Phone: Plan of Treatment Date Care Activity Detail Author Start: 11-16-2026 Diabetes Screening Diabetes Screening [facility] Start: 04-24-2025 DIABETES SCREEN DIABETES SCREEN [facility] Start: 04-24-2025 Diabetes Screening Diabetes Screening [facility] Start: 08-30-2024 End: 08-30-2024 Patient encounter procedure 08/30/2024 11:10 AM EDT Office Visit [facility] [address] [place] [address] Carla Montague MD [address] [facility] [address] [place] [address] [facility] Start: 05-23-2024 End: 05-23-2024 Patient encounter procedure 05/23/2024 11:00 AM EST Office Visit Radiation Oncology [address] [place] [address] Abdi Israel MD [address] [place] [address] Followup Radiation Oncology Comment on above: Followup Start: 05-18-2024 End: 05-18-2024 Patient encounter procedure 05/18/2024 10:15 AM EST Appointment Radiology Pet CT [address] [facility] [place] [address] CT CHE[address] [facility] [facility] Comment on above: CT CHEST Start: 03-01-2024 End: 03-01-2024 Patient encounter procedure 03/01/2024 11:10 AM EST Office Visit [facility] [address] [place] [address] Carla Montague MD [address] [facility] [address] [place] [address] Arrived [facility] Comment on above: Arrived Start: 01-29-2024 End: 01-29-2024 Patient encounter procedure 01/29/2024 2:00 PM EDT Office Visit Radiation Oncology [address] [facility] [place] [address] Abdi Israel MD [address] [place] [address] F/U after CT Scan Radiation Oncology Comment on above: F/U after CT Scan Start: 01-18-2024 End: 01-18-2024 Patient encounter procedure 01/18/2024 10:45 AM EDT Appointment Radiology [facility] [address] [place] [address] CT Chest w/IV [facility]iology Pet CT Comment on above: CT Chest w/IV Start: 12-24-2023 [facility] Start: 12-22-2023 Microbial culture of sputum [facility] Start: 12-22-2023 [facility] Start: 12-21-2023 Administration of prophylactic treatment [facility] Start: 12-21-2023 End: 12-21-2023 ambulatory 12/21/2023 1:25 PM EDT [facility] Otolaryngology [address] [address] Teo Craft MD [address] [place] [address] post op Otolaryngology Comment on above: post op Start: 12-21-2023 Administration of prophylactic treatment [facility] Start: 12-21-2023 [facility] Start: 12-20-2023 Consultation [facility] Start: 12-20-2023 Hospital admission [facility] Start: 12-20-2023 Respiratory pathogens DNA and RNA panel - Nasopharynx by KRUNAL with non-probe detection [facility] Start: 12-20-2023 [facility] Start: 12-20-2023 Plain chest X-ray XR chest 1V portable [facility] Start: 12-20-2023 XR Chest Single view [facility] Start: 12-18-2023 End: 12-18-2023 Patient encounter procedure 12/18/2023 3:00 PM EDT Office Visit Radiation Oncology [address] [place] [address] Abdi Israel MD [address] [address] followup Radiation Oncology Comment on above: followup Start: 12-15-2023 End: 12-15-2023 Patient encounter procedure 12/15/2023 2:15 PM EDT Appointment Radiology [facility] [address] [place] [address] CT [address] [facility] [address] Comment on above: CT chest Start: 12-15-2023 End: 12-15-2023 Patient encounter procedure 12/15/2023 12:45 PM EDT Appointment Radiology [facility] [address] [place] [address] Comment on above: PET Start: 12-13-2023 Covid-19 Vaccine ( season) Covid-19 Vaccine ( season) [facility] Start: 12-13-2023 Covid-19 Vaccine ( season) Covid-19 Vaccine ( season) [facility] Start: 12-13-2023 Influenza vaccination Influenza Vaccine (#1) [facility] Start: 11-18-2023 End: 11-18-2023 Admission to same day surgery center 11/18/2023 4:10 PM EDT - 11/18/2023 6:42 PM EDT Surgery Admitting [address] [place] [address] Teo Craft MD [address] [place] [address] BIOPSY OR EXCISION LYMPH NODE(S) OPEN, DEEP CERVICAL Admitting Comment on above: BIOPSY OR EXCISION LYMPH NODE(S) OPEN, D EEP CERVICAL Start: 11-18-2023 End: 11-18-2023 Bx/exc lymph node open deep cervical node BIOPSY OR EXCISION LYMPH NODE(S) OPEN, DEEP CERVICAL Non-small cell cancer of left lung (HCC) Lymphadenopathy 11/18/2023 4:10 PM EDT [facility] Start: 11-18-2023 Subsequent hospital visit by physician 11/18/2023 4:10 PM EDT Hospital Encounter Admitting [address] [place] [address] Teo Craft MD [address] [place] [address] Non-small cell cancer of left lung (HCC) [C34.92] Admitting Comment on above: Non-small cell cancer of left lung (HCC) [C34.92] Start: 10-27-2023 End: 10-27-2023 Patient encounter procedure 10/27/2023 11:00 AM EDT Office Visit Otolaryngology [address] [address] Teo Craft MD [address] [place] [address] excisional biopsy cervical lymph node; needle biopsy was negative Otolaryngology Comment on above: excisional biopsy cervical lymph node; n eedle biopsy was negative Start: 09-16-2023 End: 09-16-2023 Admission to same day surgery center 09/16/2023 10:00 AM EDT - 09/16/2023 11:00 AM EDT Surgery Angio [address] [place] [address] [place], [address] [facility] [address] [address] BIOPSY OR EXCISION LYMPH NODES(S) NEEDLE SUPERFICIAL [...] 10:00 AM EDT Hospital Encounter Angio [address] [place] [address] [place], [address] [facility] [address] [place] [address] Malignant neoplasm of unspecified part of unspecified bronchus or lung (HCC) [C34.90] Angio Comment on above: Malignant neoplasm of unspecified part o f unspecified bronchus or lung (HCC) [C34.90] Start: 09-09-2023 End: 12-09-2023 CBC panel - Blood by Automated count COMPLETE BLOOD COUNT Lab Routine Neoplasm Expected: 09/09/2023, Expires: 12/09/2023 [facility] Work Phone: Comment on above: Expected: 09/09/2023, Expires: Start: 09-01-2023 End: 09-01-2023 Patient encounter procedure 09/01/2023 12:45 PM EDT Appointment Radiology Pet CT [address] [place] [address] [place] [address] Comment on above: PET Start: 05-17-2023 [facility] Start: 05-14-2023 Administration of prophylactic treatment [facility] Start: 05-14-2023 End: 05-14-2023 [facility] Start: 05-14-2023 Hospital admission [facility] Start: 05-14-2023 Microbial culture of sputum [facility] Start: 05-13-2023 CT Chest [facility] Start: 05-13-2023 End: 07-13-2023 CREATININE BLD CREATININE BLD Lab Routine Neoplasm of lung Expected: 05/13/2023 (Approximate), Expires: 07/13/2023 [facility] Work Phone: Comment on above: Expected: 05/13/2023 (Approximate), Expi res: 07/13/2023 Start: 05-13-2023 End: 12-27-2023 CT CHEST W IVCON CT CHEST W IVCON Radiology Routine Neoplasm of lung Expected: 05/13/2023 (Approximate), Expires: 12/27/2023 [facility] Work Phone: Comment on above: Expected: 05/13/2023 (Approximate), Expi res: 12/27/2023 Start: 04-13-2023 Behavioral Health Screening Behavioral Health Screening [facility] Start: 04-13-2023 Depression Assessment Depression Assessment [facility] Start: 12-12-2022 Covid-19 Vaccine () Covid-19 Vaccine () [facility] Start: 12-12-2022 Influenza vaccination [facility] Start: 06-06-2022 Adult depression screening assessment DEPRESSION SCREENING [facility] Start: 06-06-2022 End: 06-06-2022 CREATININE BLD CREATININE BLD Lab Routine Non-small cell cancer of left lung (HCC) Expected: 06/06/2022, Expires: 06/06/2022 [facility] Work Phone: Comment on above: Expected: 06/06/2022, Expires: 3 Start: 06-06-2022 End: 07-06-2022 Ct thorax w/contrast material CT CHEST W IVCON Radiology Routine Non-small cell cancer of left lung (HCC) Neoplasm of lung Expected: 06/06/2022, Expires: 07/06/2022 [facility] Work Phone: Comment on above: Expected: 06/06/2022, Expires: 3 Start: 04-24-2022 End: 06-24-2022 SARS-CoV-2 (COVID-19) RNA [Presence] in Respiratory specimen by KRUNAL with probe detection INTERMEDIATE RAPID COVID Microbiology Routine Preoperative examination Expected: 04/24/2022, Expires: 06/24/2022 [facility] Work Phone: Comment on above: Expected: 04/24/2022, Expires: 3 Start: 04-22-2022 End: 06-22-2022 Basic metabolic 2000 panel - Serum or Plasma BASIC METABOLIC PNL Lab STAT Lung mass Expected: 04/22/2022, Expires: 06/22/2022 [facility] Work Phone: Comment on above: Expected: 04/22/2022, Expires: 3 Start: 04-22-2022 End: 06-22-2022 CBC W Auto Differential panel - Blood CBC + DIFF Lab STAT Lung mass Expected: 04/22/2022, Expires: 06/22/2022 [facility] Work Phone: Comment on above: Expected: 04/22/2022, Expires: 3 Start: 04-13-2022 DEPRESSION ASSESSMENT DEPRESSION ASSESSMENT [facility] Start: 12-12-2021 Influenza vaccination INFLUENZA (#1) [facility] Start: 2021 RSV Vaccine (1 - 1-dose 60+ series) RSV Vaccine (1 - 1-dose 60+ series) [facility] Start: 2021 RSV Vaccine (1 - Risk 60-74 years 1-dose series) RSV Vaccine (1 - Risk 60-74 years 1-dose series) [facility] Start: 04-13-2021 DEPRESSION ASSESSMENT DEPRESSION ASSESSMENT [facility] Start: 03-02-2021 DIABETES SCREEN DIABETES SCREEN [facility] Start: 08-26-2011 SHINGRIX VACCINE (1 of 2) SHINGRIX VACCINE (1 of 2) [facility] Start: 2006 COLOGUARD (FIT-DNA) COLOGUARD (FIT-DNA) [facility] Start: 2006 Colonoscopy COLONOSCOPY [facility] Start: 2006 COLORECTAL CANCER SCREENING COLORECTAL CANCER SCREENING [facility] Start: [address] COLONOGRAPHY [facility] Start: 2006 FECAL OCCULT BLOOD FECAL OCCULT BLOOD [facility] Start: 2006 Lipid panel Lipid Screening [facility] Start: 2006 LIPID SCREEN LIPID SCREEN [facility] Start: 2006 Screening for malignant neoplasm of colon [facility] Start: 2006 SIGMOIDOSCOPY SIGMOIDOSCOPY [facility] Start: 2001 Mammography MAMMOGRAM [facility] Start: 2001 Screening for malignant neoplasm of breast Mammogram Screening [facility] Start: 08-26-1991 HPV TESTING HPV TESTING [facility] Start: 08-26-1991 Screening for malignant neoplasm of cervix HPV Testing [facility] Start: 08-26-1991 Zoledronic acid therapy ALPHA-1 ANTITRYPSIN DEFICIENCY SCREENING [facility] Start: 1982 PAP TESTING PAP TESTING [facility] Start: 1982 Screening for malignant neoplasm of cervix [facility] Start: 1980 Urine microalbumin profile [facility] Start: 08-26-1979 ANNUAL PCP TEAM CHRONIC DISEASE VISIT ANNUAL PCP TEAM CHRONIC DISEASE VISIT [facility] Start: 08-26-1979 Anxiety Screening Anxiety Screening [facility] Start: 08-26-1979 Depression Screening Depression Screening [facility] Start: 08-26-1979 HEPATITIS C SCREENING HEPATITIS C SCREENING [facility] Start: 08-26-1979 Hepatitis C screening Hepatitis C Screening [facility] Start: 08-26-1979 HIV SCREENING HIV SCREENING [facility] Start: 08-26-1979 HIV screening HIV Screening [facility] Start: 08-26-1979 SPIROMETRY SPIROMETRY [facility] Start: 08-26-1967 PNEUMOCOCCAL (1 - PCV) PNEUMOCOCCAL (1 - PCV) [facility] ic Start: 08-26-1967 Pneumococcal vaccination Pneumococcal Vaccine (1 of 2 - PCV) [facility] Start: 1966 COVID-19 VACCINE (1) COVID-19 VACCINE (1) [facility] Start: 02-25-1962 COVID-19 VACCINE (#1) COVID-19 VACCINE (#1) [facility] Albumin/Globulin ratio [facility] Anion gap measurement [facility] Basophils [#/volume] in Blood by Automated count [facility] Basophils/100 leukocytes in Blood by Automated count [facility] Bx/exc lymph node op en superficial BIOPSY/REMOVAL, LYMPH NODE(S) Procedures ALEKS Non-small cell cancer of left lung (HCC) 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) Ordered: 09/21/2023 [facility] Work Phone: Comment on above: Ordered: 09/21/2023 End: 12-26-2024 CT Chest W contrast IV CT CHEST W IVCON Radiology Routine Malignant neoplasm of unspecified part of unspecified bronchus or lung (HCC) 1 Occurrences starting 11/27/2023 until 12/26/2024 [facility] Comment on above: 1 Occurrences starting 11/27/2023 until 12/26/2024 End: 05-22-2023 Ct thorax w/o contrast material CT CHEST WO IVCON Radiology Routine Lung mass 1 Occurrences starting 04/22/2022 until 05/22/2023 [facility] Work Phone: Comment on above: 1 Occurrences starting 04/22/2022 until 05/22/2023 CYTOLOGY NON-PROGRAM PROJECT ANALYST [facility] Work Phone: Comment on above: Release Upon Ordering for 1 Occurrences starting 05/09/2022, 1 completed End: 04-22-2023 ECG COMPLETE ECG COMPLETE ECG STAT Lung mass 1 Occurrences starting 04/22/2022 until 04/22/2023 [facility] Work Phone: Comment on above: 1 Occurrences starting 04/22/2022 until 04/22/2023 Eosinophils/100 leukocytes in Blood by Automated count [facility] Erythrocyte distribution width [Ratio] by Automated count [facility] Erythrocytes [#/volu me] in Blood [facility] Globulin [Mass/volum e] in Serum [facility] Hematocrit [Volume Fraction] of Blood [facility] Hemoglobin [Mass/volume] in Blood [facility] Leukocytes [#/volume ] corrected for nucleated erythrocytes in Blood by Automated coun [facility] Leukocytes [#/volume ] in Blood [facility] Lymphocytes [#/volum e] in Blood by Automated count [facility] Lymphocytes/100 leukocytes in Blood by Automated count [facility] MCH [Entitic mass] b y Automated count [facility] MCHC [Mass/volume] b y Automated count [facility] MCV [Entitic volume] by Automated count [facility] Monocytes [#/volume] in Blood by Automated count [facility] Monocytes/100 leukocytes in Blood by Automated count [facility] Neutrophils [#/volum e] in Blood by Automated count [facility] Neutrophils/100 leukocytes in Blood by Automated count [facility] Nucleated erythrocyt es [Presence] in Blood by Automated count [facility] Patient Education [facility] Work Phone: Patient referral [facility] Work Phone: End: 03-22-[address] attenuation skull base mid-thigh NM PET/CT SKULL-THIGH INITIAL Radiology Routine Neoplasm of lung 1 Occurrences starting 02/21/2022 until 03/22/2023 [facility] Work Phone: Comment on above: 1 Occurrences starting 02/21/2022 until 03/22/2023 End: 09-15-2024 PET+CT Guidance for localization of tumor of Skull base to mid-thigh-- W 18F-[id number] IV NM PET/CT SKULL-THIGH SUBSEQUENT Radiology Routine Malignant neoplasm of unspecified part of unspecified bronchus or lung (HCC) 1 Occurrences starting 08/17/2023 until 09/15/2024 [facility] Work Phone: Comment on above: 1 Occurrences starting 08/17/2023 until 09/15/2024 End: 12-26-2024 PET+CT Guidance for localization of tumor of Skull base to mid-thigh-- W 18F-FDG IV NM PET/CT SKULL-THIGH SUBSEQUENT Radiology Routine Malignant neoplasm of unspecified part of unspecified bronchus or lung (HCC) 1 Occurrences starting 11/27/2023 until 12/26/2024 [facility] Work Phone: Comment on above: 1 Occurrences starting 11/27/2023 until 12/26/2024 Platelet mean volume [Entitic volume] in Blood by Automated count [facility] Platelets [#/volume] in Blood [facility] SARS-CoV-2 (COVID-19 ) RNA [Presence] in Respiratory specimen by KRUNAL with probe detection SELF CHECK COVID Microbiology Routine Lung mass Ordered: 04/22/2022 [facility] Work Phone: Comment on above: Ordered: 04/22/2022 SURGICAL PATHOLOGY [facility] Work Phone: Comment on above: Release Upon Ordering for 1 Occurrences starting 05/09/2022, 1 completed End: 09-16-2023 SURGICAL PATHOLOGY [facility] Work Phone: Comment on above: ONCE for 1 Occurrences starting 09/16/19 24 until 09/16/2023, 1 completed XR Chest 2 Views [facility] [place] [facility] Immunizations Immunization Date Immunization Notes Care Provider Fa [facility] 02-27-2023 Influenza, injectabl e, [place] Canine Kidney, preservative free, quadrivalent Carla Montague MD Work Phone: [facility] 02-27-2023 influenza virus vacc ine, unspecified formulation [facility] 1 Work Phone: [facility] 03-17-2022 influenza, injectabl e, quadrivalent, contains preservative Carla Montague MD Work Phone: [facility] 03-04-2022 influenza, injectabl e, quadrivalent, preservative free Vitor Kaur MD Work Phone: [facility] 03-04-2022 influenza virus vacc ine, unspecified formulation Abdi Israel MD Work Phone: [facility] 02-08-2022 influenza, seasonal, injectable Carla Montague MD Work Phone: [facility] 03-19-2021 influenza, injectabl e, quadrivalent, preservative free Vitor Kaur MD Work Phone: [facility] 02-22-2021 influenza virus vacc ine, unspecified formulation Vitor Kaur MD Work Phone: [facility] 03-02-2020 Influenza, injectabl e, Madin [place] Canine Kidney, preservative free, quadrivalent Vitor Kaur MD Work Phone: [facility] 02-10-2019 influenza, high dose seasonal, preservative-free Carla Montague MD Work Phone: [facility] 02-02-2019 Influenza, injectabl e, Madin [place] Canine Kidney, preservative free, quadrivalent Vitor Kaur MD Work Phone: [facility] 03-02-2018 influenza, injectabl e, quadrivalent, contains preservative Abdi Israel MD Work Phone: [facility] Payers Date Payer Category Payer Self-pay [id number] 2018 Medicaid [employer] [id number] 2018-Present [phone] [address] [place] [address] Medicaid [id number] 2018 Medicaid [id number] 2017 Private Health Insurance [facility] MEDICAID [id number] 1961 Unknown [id number] [id number]. 59 1961 Unknown [id number] 2.16.840.1.350242.3.579.2. 593 1961 Unknown [id number] 2.16.840.1.675673.3.579.2. 593 1961 Unknown [id number] 2.16.840.1.135903.3.579.2. 593 1961 Unknown [id number] 2.16.840.1.177539.3.579.2. 593 1961 Unknown [id number] 2.16.840.1.291460.3.579.2. 593 1961 Unknown [id number] 2.16.840.1.654050.3.579.2. 59 1961 Unknown [id number] 2.16.840.1.047487.3.579.2. 593 1961 Unknown [id number] 2.16.840.1.310598.3.579.2. 59 1961 Unknown [id number] 2.16.840.1.288833.3.579.2. 1259 1961 Unknown [id number] 2.16.840.1.136957.3.579.2. 1258 1961 Unknown [id number] 2.16.840.1.406680.3.579.2. 9 1961 Unknown [id number] 2.16.840.1.045871.3.579.2. 9 1961 Unknown [id number] 2.16.840.1.195209.3.579.2. 1259 1959 Self-pay [id number] 1959 Unknown [id number] 1959 Unknown [id number] [id number] Unknown [id number] 2.16.840.1.562869.3.579.2. 531 Unknown [id number] 2.16.840.1.369986.3.579.2. 531 Unknown [id number] [id number]. 531 Social History Date Type Detail Facility Start: 03-02-2018 End: 10-07-2022 Tobacco smoking status NHIS Ex-smoker [facility] Start: 04-13-1977 End: 04-13-2012 History of tobacco use Current smoker [facility] Start: 03-02-2018 End: 03-01-2024 Cigarettes smoked current (pack per day) - Reported 1.5 [facility] Start: 03-02-2018 End: 10-07-2022 Tobacco use and exposure Smokeless tobacco non-user [facility] Start: 06-06-2021 End: 11-17-2023 Alcohol intake Current drinker of alcohol (finding) [facility] Start: 1960 Sex Assigned At Not on file [facility] Start: 04-29-2021 End: 03-14-2022 Exposure to SARS-CoV-2 (event) Not sure [facility] Start: 04-13-1977 End: 04-13-2012 History of tobacco use Cigarette Smoker [facility] Work Phone: Start: 03-14-2022 End: 03-01-2024 Sex Assigned At [facility] Adult Depression Screening Assessment 0 [facility] Start: 1960 Sex Assigned At Female F [facility] Start: 02-23-2024 End: 02-27-2024 Sex Female (finding) [facility] Start: 11-30-2023 End: 03-01-2024 Alcoholic beverage intake Lifetime non-drinker (finding) [facility] Start: 12-02-2022 Alcohol Comment caffeine intak e: more than 4 cups per day [facility] Healthcare Goals Date Patient Goal Desired Activity /State Functional Status Date Assessment Result Facility 12-24-2023 Functional status Patient at Baseline [facility] Work Phone: Mental Status Date Assessment Result Facility 12-24-2023 Cognitive function Cognitive Sta tus Patient at Baseline [facility] Work Phone: Clinical Notes 05-14-2011 to 03-01-2024 Carla Montague MD - 03/01/2024 11:10 AM ESTTelephone Encounter - Kendal Pacheco - 02/17/2024 10:17 AM ESTTelephone Encounter - Kendal Pacheco - 02/17/2024 10:17 AM EST Note Date & Type Note Facility 03-01-2024 History of Present illness Narrative Images from the original note were not included. Subjective Patient ID: Omaira Guerrero is a 63 y.o. female who presents for Ear Problem (6 month ear check ) F/U left keratosis Family History Problem Relation Name Age of Onset Heart disease Mother Heart disease Father Mental illness Father Alzheimer's disease Father COPD Father Emphysema Father Heart disease Sibling Coronary artery disease Other Active Ambulatory Problems Diagnosis Date Noted Chronic obstructive pulmonary disease (CMS/HCC) 10/13/[address] scan of lung 10/13/2022 Centrilobular emphysema (CMS/HCC) 03/02/2018 Chronic respiratory failure with hypoxia (CMS/HCC) 03/02/2018 Lung cancer (CMS/HCC) 10/21/2022 Lung field abnormal 10/21/2022 Lung nodule, solitary 03/02/2018 Non-small cell cancer of left lung ([facility]) 04/07/2018 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 Foreign body of left ear 08/17/2023 Resolved Ambulatory Problems Diagnosis Date Noted Supplemental oxygen dependent 11/17/2023 Past Medical History: Diagnosis Date COPD (chronic obstructive pulmonary disease) ([facility]) COVID-19 10/2020 Past Surgical History: Procedure Laterality Date APPENDECTOMY SECTION, CLASSIC 1984 LYMPHADENECTOMY Left x 2 US GUIDED BIOPSY LYMPH NODE SUPERFICIAL 09/16/2023 US GUIDED BIOPSY LYMPH NODE SUPERFICIAL 09/16/2023 No Known Allergies Current Outpatient Medications on File Prior to Visit Medication Sig Dispense Refill albuterol (2.5 MG/3ML) 0.083% nebulizer solution Take 3 mL (2.5 mg) by nebulization every 6 (six) hours if needed for wheezing 225 mL 5 albuterol HFA (Ventolin HFA) 90 mcg/act inhaler Inhale 2 puffs every 6 (six) hours 18 g 5 budesonide (Pulmicort) 0.5 MG/2ML nebulizer solution Take 2 mL (0.5 mg) by nebulization in the morning and 2 mL (0.5 mg) before bedtime. 120 mL 5 cetirizine (ZyrTEC) 10 MG tablet Take 10 mg by mouth in the morning. Dextromethorphan-guaiFENesin ([employer] Mucus DM Extended Release) 30-600 MG tablet sustained-release 12 hour Take 1 tablet by mouth every 12 (twelve) hours if needed ferrous sulfate 325 (65 Fe) MG tablet Take 1 tablet by mouth in the morning and 1 tablet before bedtime. fluticasone (Flonase) 50 MCG/ACT nasal spray Administer 2 sprays into each nostril in the morning. ipratropium-albuterol (Duo-Neb) 0.5-2.5 mg/3 mL nebulizer solution INHALE 1 VIAL VIA NEBULIZER 4 TIMES DAILY 180 mL 5 montelukast (Singulair) 10 MG tablet Take 1 tablet (10 mg) by mouth at bedtime 30 tablet 5 Mucus Relief 600 MG 12 hr tablet Take 1,200 mg by mouth in the morning and 1,200 mg before bedtime. Respiratory Therapy Supplies (CareTouch CPAP & BIPAP Hose) misc Mask and Tubing Roflumilast (Daliresp) 500 MCG tablet Take 500 mcg by mouth Daily 30 tablet 5 sodium chloride 3 % nebulizer solution Take by nebulization if needed. theophylline ER (Mi-24) 200 MG 24 hr capsule Take 1 capsule (200 mg) by mouth 1 (one) time each day at the same time 30 capsule 5 [DISCONTINUED] predniSONE (Deltasone) 10 MG tablet TAKE 1 TABLET BY MOUTH EVERY DAY FOR 30 DAYS [DISCONTINUED] tiotropium-olodaterol (Stiolto Respimat) 2.5-2.5 MCG/ACT aerosol solution inhaler Inhale 2 Inhalation 1 (one) time each day at the same time 4 g 5 No current facility-administered medications on file prior to visit. Objective Last Recorded Vitals Vitals: 03/01/24 1110 BP: 115/73 ENT Physical Exam Ear Ear comments: RT cerumen impaction. LT keratotic debris Patient ID: Omaira Guerrero is a 63 y.o. female. Procedures Cerumen was removed from the right ear using binocular microscopy under micro with suction, curette and/or foreceps Foreign body removed from the left ear canal under micro with a forecep Assessment/Plan Diagnoses and all orders for this visit: Right ear impacted cerumen Foreign body of left ear, initial encounter Kulwinder ears debrided documented in this encounter [facility] 02-17-2024 Telephone encounter Note Records faxed to Dr. Rasmussen. Requested images be pushed to [facility]. [facility] 02-17-2024 Miscellaneous Notes Records faxed to Dr. Rasmussen. Requested images be pushed to [facility]. Emily: Please send reports and images to Dr. Rasmussen as requested below per Dr. Israel. Thanks LUCIE Dolan Saju, MD sent to Julisa Pressley LPN; Silvia Jha, RN Please send recent imaging from the past two years (images and report) as well as my notes to Dr. Block as well as the procedure note and pathology results from her bronch/biopsy from 04/2022 (including any cultures/stains). Thanks! Abdi documented in this encounter [facility] 02-17-2024 Telephone encounter Note Emily: Please send reports and images to Dr. Rasmussen as requested below per Dr. Israel. Thanks LUCIE Dolan Saju, MD sent to Julisa Pressley LPN; Silvia Jha, RN Please send recent imaging from the past two years (images and report) as well as my notes to Dr. Block as well as the procedure note and pathology results from her bronch/biopsy from 04/2022 (including any cultures/stains). Thanks! Abdi [facility] 01-29-2024 Note HNO ID: [id number] Author: ABDI ISRAEL MD Service: ? Author Type: Physician Type: Progress Notes Filed: 02/16/2024 08:32 Note Text: Radiation Oncology - Follow Up Note PATIENT NAME: CINTHIA Guerrero PATIENT DIAGNOSIS/PATIENT IDENTIFICATION: Ms. Guerrero is a 63-year-old woman with severe COPD, who is diagnosed with Stage IA3, [id number], non-small cell lung cancer arising from a [...] 05/14/2018 (5000 cGy in 5 fractions). INTERVAL HISTORY: Ms. Guerrero returns to clinic today for routine follow-up approximately five and a half years after the completion of her radiation treatments and eight months since her last visit on 05/25/2023. In the interim, she had PET/CT on 09/01/2023 showing hypermetabolic activity in the left lower supraclavicular lymph nodes concerning for metastatic disease. She underwent excisional biopsy by Dr. Craft on 11/18/2023 with pathology returning with no evidence of malignancy. She also reports multiple interval hospitalizations for COPD exacerbation requiring steroids and antibiotics the last 1 over a month ago. He did notice worsening of a cough about a week and a half ago which improved with antibiotics. She continues on supplemental oxygen via nasal cannula [id number] at 2 L/min and continues on Pulmicort and DuoNeb under the care of Dr. Rasmussen. She does note some rib pain which she feels is related to her cough but otherwise no chest pain or hemoptysis or difficulty swallowing or skin irritation in the treatment area. She does note fatigue which is stable with waxing and waning appetite with stable hydration and weight. She had repeat CT of the chest earlier this month on 01/18/2024 with progression of left suprahilar consolidative opacity to be related to posttreatment change with no definite mass concerning/bulky lymphadenopathy. Was interval development of a cavitary lesion in the left upper lobe of the lung. She otherwise denies any recent fevers, chills, headaches, difficulty with speech/swallowing, palpitations, abdominal pain, nausea, vomiting, change in bowel/urinary habits, difficulty with gait/balance, recent falls, etc. The remainder of the review of systems was performed and was otherwise noncontributory. ALLERGIES ALLERGIES No Known Allergies MEDICATIONS: Current Outpatient Medications: ferrous sulfate 325 mg (65 mg iron) tablet doxycycline monohydrate (MONODOX) 100 mg capsule dextromethorphan-guaiFENesin (MUCINEX DM) 30-600 mg per tablet budesonide (PULMICORT) 1 mg/2 mL nebulizer solution montelukast (SINGULAIR) 10 mg tablet ipratropium/albuterol sulfate (DUONEB INHALATION) albuterol (PROVENTIL) 2.5 mg/0.5 mL nebulizar solution PEDIATRIC ASTHMA Cetirizine 10 mg cap predniSONE 10 mg tablet pack iv contrast (will be provided with radiology test) Theophylline SR (MI-24) 400 mg 24 hr capsule PHYSICAL EXAM: GENERAL: thin middle-aged woman sitting in chair in no acute distress on supplemental oxygen via nasal cannula. VITALS: BP 125/78 Pulse 112 Temp 97.7 Resp 16 SpO2 93[2 liters]% KPS: 70 HEENT: NC/AT, anicteric sclera HEART: S1S2 LUNGS: non-labored breathing ABDOMEN: soft MUSCULOSKELETAL: no peripheral edema, moves all extremities. NEURO: no focal deficit; AANDO X3. PATHOLOGIC DATA: 11/18/2023 FINAL DIAGNOSIS Lymph nodes, left posterior supraclavicular and left supraclavicular external jugular, excisional biopsies (A-B): - Benign lymph nodes with follicular hyperplasia. - GMS stains negative for microorganisms. - No evidence of malignancy. - See comment. Diagnosis Comment The morphologic findings described below show benign lymph nodes with follicular hyperplasia. Granulomatous diseases not identified. GMS stains are negative for microorganisms. There is no evidence of a lymphoproliferative disorder, metastatic carcinoma or other malignancy. RADIOLOGIC DATA: PET/CT (09/01/2023) IMPRESSION: HEAD/NECK: * Few hypermetabolic left lower cervical/supraclavicular lymph nodes suspicious for metastases. CHEST: * Left apical left suprahilar region consolidation/opacity with low level mild activity likely posttreatment change. Additional a more focal hypermetabolic nodular opacity raising suspicious for neoplasm. ABDOMEN/PELVIS: * Hypermetabolic focus in the region of the sigmoid colon ,Endoscopic correlation suggested. MUSCULOSKELETAL: * No FDG avid neoplastic process. CT Chest (01/18/2024) IMPRESSION: 1. Left suprahilar consolidative opacity, progressed from prior study. Findings likely relate to pro (more content not included)... [facility] 01-29-2024 History of Present illness Narrative Radiation Oncology - Follow Up Note PATIENT NAME: CINTHIA Guerrero PATIENT Signed by: Abdi Israel MD I spent a total of 20 minutes on the date of the service which included preparing to see the patient, tefz-ca-picg patient care, and counseling and educating the patient/family/caregiver. This document has been created with the use of voice recognition technology. It may contain inaccuracies, misspellings, inaccurate syntax or inappropriate word context that are a result of the inadequacies/shortcomings of said technology/software. documented in this encounter [facility] 01-18-2024 History of Present illness Narrative Radiology Service Progress Note DATE OF SERVICE: January 18, 2024 TIME: 10:50 AM PATIENT WEIGHT: 92LBS PATIENT IDENTITY VERIFICATION COMPLETED USING TWO (2) [...] EXAM: CT -CONTRAST INDUCED NEPHROPATHY RISK FACTORS: Patient age > 60 years CREATININE: Creatinine Date Value Ref Range Status 11/17/2023 0.37 (L) 0.58 - 0.96 mg/dL Final 04/24/2022 0.48 (L) 0.58 - 0.96 mg/dL Final 03/02/2018 0.48 (L) 0.58 - 0.96 mg/dL Final Estimated Glomerular Filtration Rate Date Value Ref Range Status 11/17/2023 114 >=60 mL/min/1.73m Final Comment: Estimated Glomerular Filtration [...] RESULTS: POC done: Yes, See Lab Tab January 18, 2024 TREATMENT: N/A IV SITE: Ambulatory: A peripheral IV was started in the Right forearm with a Angio cath: 20 gauge. IV SITE APPEARANCE: Clean,Dry and Intact SIGNATURE: Nadia Fernandez RN PATIENT NAME: CINTHIA Guerrero DATE: January 18, 2024 TIME: 10:50 AM Radiology Service Progress Note PATIENT NAME: CINTHIA Guerrero DATE OF SERVICE: January 18, 2024 TIME: 11:28 AM PATIENT IDENTITY VERIFICATION COMPLETED USING TWO (2) IDENTIFIERS: Name and Date of confirmed by patient verbally. FALL SCREENING: Has the patient had 2 falls in the last year or 1 fall with injury or currently using an Ambulatory Assistive Device (Walker, Cane, Wheelchair, Crutches, etc.)? No PATIENT GENDER DATA: Female. status: : No status: NO. PATIENT RELEVANT IMPLANT DATA REVIEWED: Not Applicable PATIENT PRESENTS WITH AN IMPLANTABLE OR ATTACHED BLUEPRINT CUTTER: No RADIOLOGY DEPARTMENT: CT; Exam(s) Completed: Chest PERIPHERAL IV DATA: Site assessment: Clean,Dry and Intact, Site disposition Discontinued SIGNED BY: RT Fox(Araseli) January 18, 2024 11:28 AM documented in this encounter [facility] 01-18-2024 Note HNO ID: [id number] Author: NADIA FERNANDEZ RN Service: ? Author Type: Registered Nurse Type: Progress Notes Filed: 01/18/2024 10:50 Note Text: Radiology Service Progress Note DATE OF SERVICE: January 18, 2024 TIME: 10:50 AM PATIENT WEIGHT: 92LBS PATIENT IDENTITY VERIFICATION COMPLETED USING TWO (2) [...] EXAM: CT -CONTRAST INDUCED NEPHROPATHY RISK FACTORS: Patient age > 60 years CREATININE: Creatinine Date Value Ref Range Status 11/17/2023 0.37 (L) 0.58 - 0.96 mg/dL Final 04/24/2022 0.48 (L) 0.58 - 0.96 mg/dL Final 03/02/2018 0.48 (L) 0.58 - 0.96 mg/dL Final Estimated Glomerular Filtration Rate Date Value Ref Range Status 11/17/2023 114 >=60 mL/min/1.73m? Final Comment: Estimated Glomerular Filtration [...] RESULTS: POC done: Yes, See Lab Tab January 18, 2024 TREATMENT: N/A IV SITE: Ambulatory: A peripheral IV was started in the Right forearm with a Angio cath: 20 gauge. IV SITE APPEARANCE: Clean,Dry and Intact SIGNATURE: Nadia Fernandez RN PATIENT NAME: CINTHIA Guerrero DATE: January 18, 2024 TIME: 10:50 AM [facility] 01-18-2024 Note HNO ID: [id number] Author: SAHARA BRICENO RT(R) Service: ? Author Type: Technologist Type: Progress Notes Filed: 01/18/2024 11:28 Note Text: Radiology Service Progress Note PATIENT NAME: CINTHIA Guerrero DATE OF SERVICE: January 18, 2024 TIME: 11:28 AM PATIENT IDENTITY VERIFICATION COMPLETED USING TWO (2) IDENTIFIERS: Name and Date of confirmed by patient verbally. FALL SCREENING: Has the patient had 2 falls in the last year or 1 fall with injury or currently using an Ambulatory Assistive Device (Walker, Cane, Wheelchair, Crutches, etc.)? No PATIENT GENDER DATA: Female. status: : No status: NO. PATIENT RELEVANT IMPLANT DATA REVIEWED: Not Applicable PATIENT PRESENTS WITH AN IMPLANTABLE OR ATTACHED BLUEPRINT CUTTER: No RADIOLOGY DEPARTMENT: CT; Exam(s) Completed: Chest PERIPHERAL IV DATA: Site assessment: Clean,Dry and Intact, Site disposition Discontinued SIGNED BY: RT Fox(R) January 18, 2024 11:28 AM [facility] 12-28-2023 Telephone encounter Note I talked to the Patient and have her scheduled for her CT Scan on Thursday01/18/24 at 1045 am, and her Follow up appointment with Dr. Israel on Thursday01/29/24 at 2 pm. HARJINDER Mcgowan [facility] 12-28-2023 Miscellaneous Notes I talked to the Patient and have her scheduled for her CT Scan on Thursday01/18/24 at 1045 am, and her Follow up appointment with Dr. Israel on Thursday01/29/24 at 2 pm. HARJINDER Mcgowan Cinthia Guerrero --Omaira was [place] [facility]-She hasn't called in to reschedule her appt's. [...] back to schedule. documented in this encounter [facility] 12-24-2023 Discharge summary Note Date/Time December 24, 2023 8:38am [facility] [address] [place] [address] Discharge Summary Signed with Dacia Patient: Cinthia Guerrero MR#: [id number] : 1960 Acct:[id number] Age/Sex: 63 / F Adm Date: 4 Loc: Room: [address] [place] [address]: Cassandra Andersen MD Copies to: [...] Time of Notification: 07:50 Extended Comment: Dr Gannon's patient 12/21/23 09:09 Consult to Dietitian Routine [...] ask her primary care doctor to obtain [facility] record entirely to address abnormalities seen on [...] ask your primary care provider to obtain [facility] records entirely to follow up on all [...] screen for lung cancer Discharging you from [facility] does not mean that your medical care [...] signed by Cassandra Andersen MD> 12/24/23 0843 [facility] Work Phone: 1(682) 784-924309-12-2024 Telephone encounter Note* Telephone Encounter - Robb Lowe Rodney - 12/24/2023 1:58 PM EDT Cinthia Guerrero --Omaira was [place]'d [place] [facility]-She hasn't called in to reschedule her appt's. [...] a message to call back to schedule. [facility]09-11-2024 Progress note Author Denver Rasmussen [facility] December 23, 2023 6:59pm Note Date/Time December 23, 2023 8:19am [facility] [address] [place] [address] Pulmonology Progress Note Signed Patient: Cinthia Guerrero MR#: [id number] : 1960 Acct:[id number] Age/Sex: 63 / F Adm Date: 4 Loc: Room: [address] [place] [address] Type: ADM IN Attending Dr: Cassandra Andersen [...] bronchodilators. Documented By: Denver Rasmussen MD 4 [id number] Signed By: <Electronically signed by MD Denver Rasmussen> 12/23/23 7749 [facility] Work Phone: 1(391) 953-820409-11-2024 Progress note Author Cassandra Andersen [facility] December 23, 2023 11:01am Note Date/Time December 23, 2023 11:02am [facility] [address] [place] [address] Hospitalist Progress Note Signed Patient: Cinthia Guerrero MR#: [id number] : 1960 Acct:[id number] Age/Sex: 63 / F Adm Date: 4 Loc: Room: [address] [place] [address] Type: ADM IN Attending Dr: Cassandra Andersen [...] 1,000 Ml IV 12/23/23 15:16 70 mls/hr .[id number] JYOTI Administration Melatonin 5 mg 12/20/23 22:58 [...] chest to be arranged by PCP or nurse outreach case manager to screen for lung cancer. She had [...] signed by Cassandra Andersen MD> 12/23/23 1101 [facility] Work Phone: 1(294) 492-888809-10-2024 Progress note Author Denver Rasmussen [facility] December 22, 2023 7:37pm Note Date/Time December 22, 2023 8:11am [facility] [address] [place] [address] Pulmonology Progress Note Signed Patient: Cinthia Guerrero MR#: [id number] : 1960 Acct:[id number] Age/Sex: 63 / F Adm Date: 4 Loc: Room: [address] [place] [address] Type: ADM IN Attending Dr: Cassandra Andersen [...] By: <Electronically signed by MD Denver Rasmussen> 12/22/231936 [facility] Work Phone: 1(748) 573-605209-10-2024 Progress note Author Cassandra Andersen [facility] December 22, 2023 8:05am Note Date/Time December 22, 2023 8:05am [facility] [address] [place] [address] Hospitalist Progress Note Signed Patient: Cinthia Guerrero MR#: [id number] : 1960 Acct:[id number] Age/Sex: 63 / F Adm Date: 4 Loc: Room: [address] [place] [address] Type: ADM IN Attending Dr: Cassandra Andersen [...] Syringe SUBCUT 12/20/24 09:59 40 mg DAILY@10 JYOTI Administration Ferrous Sulfate 324 mg 12/21/23 09:45 12/21/23 22:32 Ferrous Sulfate 324 Mg Tablet. PO 12/20/24 [...] chest to be arranged by PCP or nurse outreach case manager to screen for lung cancer. She had 1 in April 2023 which did not show any nodules. DVT prophylax Lovenox Anxiety Xanax as needed Other medical issues not listed above To be addressed in the outpatient setting Documented By: Cassandra Andersen MD 12/22/23801 Signed By: <Electronically signed by Cassandra Andersen MD> 12/22/23804 [facility] Work Phone: 1(934) 555-570509-09-2024 Consult note Author Denver Rasmussen [facility] December 21, 2023 6:35pm Note Date/Time December 21, 2023 6:17pm [facility] [address] [place] [address] Pulmonology Consult Note Signed Patient: Cinthia Guerrero MR#: [id number] : 1960 Acct:[id number] Age/Sex: 63 / F Adm Date: 4 Loc: Room: [address] [place] [address] Type: ADM IN Attending Dr: Cassandra Andersen [...] had converted to Dr. Cross at the [facility]. Patient normally follows with Dr. Kenyon and [...] increased dyspnea. Patient was seen at the [facility] and admitted for presumably acute exacerbation of [...] negative unless noted below or in HPI [facility] Medical History (Updated 12/21/23 @ 09:21 [...] culture. Documented By: Denver Rasmussen MD 4 [id number] Signed By: <Electronically signed by MD Denver Rasmussen> 12/21/23 3010 [facility] Work Phone: 1(423) 532-245709-09-2024 Progress note Author Cassandra Andersen [facility] December 21, 2023 9:22am Note Date/Time December 21, 2023 9:22am [facility] [address] [place] [address] Hospitalist Progress Note Signed Patient: Cinthia Guerrero MR#: [id number] : 1960 Acct:[id number] Age/Sex: 63 / F Adm Date: 4 Loc: 3T Room: [address] [place] [address] Type: ADM INOo Attending Dr: Cassandra Andersen MD Copies to: ~ Date of Service: 12/21/2023 Subjective Subjective Narrative: This is 61-year-old female with chronic respiratory failure secondary to COPD, on supplemental oxygen at home, pulmonary cachexia, [facility]. At that time COVID [...] chest to be arranged by PCP or nurse outreach case manager to screen for lung cancer. She had 1 in April 2023 which did not show any nodules. Documented By: Cassandra Andersen MD 12/21/23918 Signed By: <Electronically signed by Cassandra Andersen MD> 12/21/23921 [facility] Work Phone: 1(477) 300-121109-09-2024 History and physical note Author Mg Vaughn [facility] December 20, 2023 10:58pm Note Date/Time December 20, 2023 10:58pm [facility] [address] [place] [address] Hospitalist H&P Signed Patient: Cinthia Guerrero MR#: [id number] : 1960 Acct:[id number] Age/Sex: 63 / F Adm Date: 4 Loc: Room: [address] [place] [address] Type: ADM INOo Attending Dr: Mg Vaughn MD Copies to: MD Adithya Koroma MD~ HPI DATE OF EXAMINATION: 12/20/23 CHIEF COMPLAINT: COPD exacerbation HISTORY OF PRESENT ILLNESS: This is 61-year-old female with chronic respiratory failure secondary to COPD, on supplemental oxygen at home, pulmonary cachexia, [facility]. At that time COVID [...] negative unless noted below or in HPI [facility] Medical History (Updated 12/20/23 @ 21:57 [...] % (Auto) 9.8 % (.) 12/20/23 20:08 Rogers % (Auto) 5.9 % (.) 12/20/23 20:08 Eos % (Auto) 0.1 % (.) 12/20/23 20:08 Baso % (Auto) 0.3 % (.) 12/20/23 20:08 Nucleat RBC Rel Count 0.1 /100 WBC (0-0.5) 12/20/23 20:08 Neut # (Auto) 7.0 x10E3/uL (1.8-7.7) 12/20/23 20:08 Lymph # (Auto) 0.8 x10E3/uL (1.00-4.8) L 12/20/23 20:08 Rogers # (Auto) 0.5 x10E3/uL (0.0-0.8) 12/20/23 20:08 [...] -Will consult pulmonology. Dr. Gannon is her nurse outreach case manager. -Budesonide via nebulization every 12 hours, and DuoNebs lhezue-nnm-lphju. -O2 supplementation to maintain O2 sats greater [...] <Electronically signed by Mg Vaughn MD> 12/20/232257 [facility] Work Phone: 1(981) [phone] NoteHNO ID: [id number] Author: TEO CRAFT MD Service: ? Author Type: Physician Type: Progress Notes Filed: 12/07/2023 00:32 Note Text: [facility] Consult This consult was requested [...] mobility normal Neck Ultrasound: 12/07/2023 Ultrasound Machine: VocalIQ Transducer: Linear 11 MHz Regions examined: cervical lymph nodes Sagittal and transverse views were obtained. Color and power Doppler were applied when indicated. Left neck: For surgical planning I evaluated the left cervical lymph nodes with the ultrasound. Identified 2 separate lymph nodes we (more content not included)...[facility]08-26-2024 History of Present illness Narrative* Prendes, Teo L, MD - 12/07/2023 12:20 AM EDT [facility] Consult This consult was requested by [...] mobility normal Neck Ultrasound: 12/07/2023 Ultrasound Machine: VocalIQ Transducer: Linear 11 MHz Regions examined: cervical [...] Moderate Teo Craft MD [facility] Evaluation note* Diagnosis Onset Date Resolution Status Admit Date Chronic respiratory failure with hypoxia acute December 02 9:21am COPD (chronic obstructive pulmonary disease) acute December 03, 2023 9:21am Sleep apnea, obstructive acute December 03, 2023 9:21am Acute hypoxic respiratory failure acute December 20, 024 9:37am Cachexia acute December 21, 2023 9:37am Chronic hypercapnic respiratory failure acute December 9:37am Chronic respiratory failure with hypoxia acute Eri 9th, 2 024 9:37am COPD (chronic obstructive pulmonary disease) acute December 9:37am COPD exacerbation acute Septemb 2023 9:37am Pulmonary cachexia due to COPD acute December 21, 2023 9:37am Sleep apnea, obstructive acute December 21, 2023 9:37am Cavitary lung disease acute Feb 2:29pm COPD (chronic obstructive pulmonary disease) acute February 2:29pm [facility] Work Phone: 1(653) 368-783008-19-2024 Telephone encounter Note* Telephone Encounter - Rodney Rinaldi - 11/30/2023 8:22 AM EDT Yes she has caresource unfornatuly. [facility]08-19-2024 Miscellaneous Notes* Telephone Encounter - Rodney Rinaldi - 11/30/2023 8:22 AM EDT Yes she has caresource unfornatuly. * Telephone Encounter - Rodney Rinaldi - 11/30/2023 8:10 AM EDT Patient is called and scheduled for all appointments * Telephone Encounter - Abdi Israel MD - 11/27/2023 4:20 PM EDT Signed and added a CT chest as well. Thanks! Abdi * Telephone Encounter - Julisa Pressley LPN - 11/27/2023 2:55 PM EDT Rodney: Please schedule Omaira for a PET scan then follow up with Dr. Israel. Dr. Israel: Please sign pended PET order as we discussed today. Julisa Pressley, RN * Telephone Encounter - Abdi Israel [...] call ALEKS. Thank you [facility] Telephone encounter Note * Telephone Encounter - Rodney Rinaldi - 11/30/2023 8:10 AM EDT Patient is called and scheduled for all appointments [facility]08-16-2024 Telephone encounter Note* Telephone Encounter - Abdi Israel MD - 11/27/2023 4:20 PM EDT Signed and added a CT chest as well. Thanks! Abdi [facility]08-16-2024 Telephone encounter Note* Telephone Encounter - Julisa Pressley LPN - 11/27/2023 2:55 PM EDT Rodney: Please schedule Omaira for a PET scan then follow up with Dr. Israel. Dr. Israel: Please sign pended PET order as we discussed today. Julisa Pressley RN [facility]08-08-2024 Telephone encounter Note* Telephone Encounter - Ananya Acuna - 11/19/2023 1:49 PM EDT Person Calling:Omaira Reason for Call: requesting a work excuse for her daughter Kendal spicer 11/17 & 11/18. Pt Phone #: [phone] Pharmacy Name and # : Pt last seen: Visit date not found Ananya HEARD [facility]08-08-2024 Miscellaneous Notes* Telephone Encounter - Ananya Acuna - 11/19/2023 1:49 PM EDT Person Calling:Omaira Reason for Call: requesting a work excuse for her daughter Kendal Ruiz [facility] 11/17 & 11/18. Pt Phone #: [phone] Pharmacy Name and # : Pt last seen: Visit date not found Ananya HEARD documented in this encounterZ[facility]24 NoteHNO ID: [id number] Author: DORON FLORENTINO MD Service: ? Author [...] Successful intubation technique: video laryngoscopy Devices used: [employer] Endotracheal tube insertion site: oral Blade size: [...] November 18, 2023 TIME: 3:55 PM CSN: [id number] Instructions* Patient Instructions* Brie Kaur PA-C - 11/17/2023 3:21 PM EDT PATIENT PREOPERATIVE INSTRUCTIONS Teo Craft MD has scheduled you for your procedure at this surgery center: [facility] [place] Scheduling Office: [phone] --[address] [place] [address]. Please read below carefully for your personalized instructions. Arrival Time for Surgery: - To obtain your arrival time for surgery, call your physician's office the day before your surgery. - If your surgery is scheduled for Thursday, call the Thursday before. Your surgeon s hot wound spring production supervisor will tell you what time to call the office. - If you have not reached the departmental hot wound spring production supervisor by 5 P.M., call [phone] after 5 P.M. the day before your [...] Procedures: - YOU MUST HAVE A RESPONSIBLE INVESTOR RELATIONS SPECIALIST TAKE YOU HOME. A [employer]BEST[employer] MICROSCOPIST OR FISHER CRAB CANNOT BE MADE A RESPONSIBLE INVESTOR RELATIONS SPECIALIST. - We recommend that a responsible person [...] Advance Directive, please fax a copy to [phone] or email to for it to be [...] your chart that day. [facility] History and physical note * Brie Kaur [...] via NC. Follows with outside pulm at [facility], Dr. Valery DAVIS in October per pt. Diminished breath sounds bilaterally throughout, no wheezing. SpO2 95% on 2L O2. Pt reports that she started prednisone taper from her nurse outreach case manager today, currently taking prednisone 40 mg. Ptreports she called nurse outreach case manager's office because she felt like her breathing [...] large neck Non-male patient STOP-Bang Score: 1 [id number] Score: Age: <65 Sex: female CHF history: No Hypertension history: No Stroke/TIA/thromboembolism history: No Vascular disease history: No Diabetes history: No [id number] Score: 1 ANESTHESIA FINDINGS: Intubation History: No [...] Initiated: Orders placed by surgeon/surgical service in [facility]. Orders Placed This Encounter Complete Blood Count and Differential Standing Status: Future Number of Occurrences: 1 Standing Expiration Date: 02/16/2024 BMP Standing Status: Future Number of Occurrences: 1 Standing Expiration Date: 02/16/2024 REASON FOR VISIT: CINTHIA Guerrero is a 63 year old female who is scheduled for Procedure(s): BIOPSY OR EXCISION LYMPH NODE(S) OPEN, DEEP CERVICAL (Left) at the request of DrEbony Oropeza consultation. My final recommendation will be communicated [...] 11/18/23 (per pt, surgery currently 12/16/23 in [facility]) at . REVIEW OF SYSTEMS: General: [...] requiring medication, no history of angina, CHF, NC, cardiac surgery or stents. Denies rest pain, [...] or any previous visit (from the past 11185 hour(s)). Instructions Given to Patient: Instructions located in the after visit summary. Patient given verbal and written preop instructions and voices comprehension and compliance. SIGNATURE: Brie Kaur PA-C PATIENT NAME: CINTHIA Guerrero DATE: 11/17/2023 TIME: 3:00 PM PAGER/CONTACT #: [facility] History and physical note* Brie Kaur PA-C [...] via NC. Follows with outside pulm at [facility], Dr. Valery DAVIS in October per pt. Diminished breath sounds bilaterally throughout, no wheezing. SpO2 95% on 2L O2. Pt reports that she started prednisone taper from her nurse outreach case manager today, currently taking prednisone 40 mg. Ptreports she called nurse outreach case manager's office because she felt like her breathing [...] large neck Non-male patient STOP-Bang Score: 1 [id number] Score: Age: <65 Sex: female CHF history: No Hypertension history: No Stroke/TIA/thromboembolism history: No Vascular disease history: No Diabetes history: No [id number] Score: 1 ANESTHESIA FINDINGS: Intubation History: No [...] Initiated: Orders placed by surgeon/surgical service in [facility]. Orders Placed This Encounter Complete Blood [...] 11/18/23 (per pt, surgery currently 12/16/23 in [facility]) at . REVIEW OF SYSTEMS: General: [...] requiring medication, no history of angina, CHF, NC, cardiac surgery or stents. Denies rest pain, [...] BRONCHOSCOPY Comment: 2022 1984: SNGL 2012: COLONOSCOPY FAMILY HISTORY Problem Relation Age of [...] or any previous visit (from the past 52739 hour(s)). Instructions Given to Patient: Instructions located in the after visit summary. Patient given verbal and written preop instructions and voices comprehension and compliance. SIGNATURE: Brie Kaur PA-C PATIENT NAME: CINTHIA Guerrero DATE: 11/17/2023 TIME: 3:00 PM PAGER/CONTACT #: documented in this encounterZ[facility]08-[facility]24 Telephone encounter Note * Telephone Encounter - Abdi Israel MD - 11/16/2023 5:41 PM EDT Spoke with Ms. Guerrero ... Will plan for a CT chest after she is recovered from her procedure and path is final. Thanks! Abdi [facility]08-05-2024 Telephone encounter Note* Telephone Encounter - Silvia [...] would appreciate a call ALEKS. Thank you [facility]07-16-2024 Nurse Note* Rodney Barry MA - 10/27/2023 11:27 AM EDT Tobacco Use: 1.5 packs/day, for 35 years. Quit 04/13/2012. Types: Cigarettes Was smoking cessation packet given? N/A - Patient is a non-smoker or quit >1 year ago. Was a referral initiated?N/A Patient is a non-smoker [facility]07-16-[facility] Nurse Note* Rodney Barry MA - 10/27/2023 11:27 AM EDT Tobacco Use: 1.5 packs/day, for 35 years. Quit 04/13/2012. Types: Cigarettes Was smoking cessation packet given? N/A - Patient is a non-smoker or quit >1 year ago. Was a referral initiated?N/A Patient is a non-smoker documented in this encounterZ[facility]06-[facility]24 Telephone encounter Note * Telephone Encounter - Rodney Rinaldi - 09/29/2023 8:10 AM EDT Patient is scheduled and they have been calling her with appointment. [facility]-18-[facility] Miscellaneous Notes* Telephone Encounter - Rodney Rinaldi [...] were not included. Abdi Israel MD Stock, Khusbhoo Linda MD, MD Cc: Julisa Pressley LPN; Silvia Jha RN; Rodney Rinaldi Co Dr. Mcintyre - I appreciate the update and the context for the pathology results. Rashid/Ang/Tiff - please refer Ms. Guerrero to Dr. Craft for consideration of excisional biopsy. Thanks! Abdi Dailey please place orders, thank you! documented in this encounter[facility]06-14-[facility] Telephone encounter Note * Telephone Encounter - Rodney Rinaldi - 09/25/2023 7:21 AM EDT Email sent to cancer answer line for scheduling thanks [facility]06-13-20[facility] Telephone encounter Note* Telephone Encounter - Silvia Jha RN - 09/24/2023 3:32 PM EDT Tiff- Dr Israel signed ENT order for Dr Craft. Please schedule and let him know when this consult can be done. Thank you! Silvia Jha RN [facility]06-12-20[facility] Telephone encounter Note* Telephone Encounter - Silvia Jha RN - 09/23/2023 8:[address] Israel- please sign pended ENT order so Rodney can contact Dr Craft for consult. Silvia Jha RN [facility]06-10-2024 Telephone encounter Note* Telephone Encounter - Silvia Jha RN - 09/21/2023 9:05 AM EDT Order pended- please review before signing. Silvia Jha RN [facility]06-10-2024 Telephone encounter Note* Telephone Encounter - Rodney Rinaldi - 09/21/2023 7:16 AM EDT Images from the original note were not included. Abdi Israel MD Stock, Khushboo Linda MD, MD Cc: Julisa Pressley LPN; Silvia Jha, LUCIE; Rodney Rinaldi Dr. - I appreciate the update and the context for the pathology results. Rashid/Ang/Tiff - please refer Ms. Guerrero to Dr. Craft for consideration of excisional biopsy. Thanks! Abdi Dailey please place orders, thank you! [facility]06-05-2024 Surgery Surgical operation note* Brief Op Note - Khushboo Mcintyre MD, MD - 09/16/2023 11:06 AM EDTSummary: Left cervical lymph node biopsy BRIEF OPERATIVE / PROCEDURE NOTE LOG ID: [id number] SURGERY/PROCEDURE DATE: 09/16/2023 INCISION/PROCEDURE START TIME: 10:42 AM INCISION CLOSE/PROCEDURE END TIME: 11:02 AM SURGEON(S)/PROCEDURALIST(S) AND TRUCK LEASING MANAGER(S): Surgeon(s) and Role: * Khushboo Mcintyre [...] DATE: September 16, 2023 TIME: 11:06 AM [facility] Work Phone: 1(223) 662-393106-05-2024 Surgical operation note* Brief Op Note - Khushboo Mcintyre MD, MD - 09/16/2023 11:06 AM EDTSummary: Left cervical lymph node biopsy BRIEF OPERATIVE / PROCEDURE NOTE LOG ID: [id number] SURGERY/PROCEDURE DATE: 09/16/2023 INCISION/PROCEDURE START TIME: 10:42 AM INCISION CLOSE/PROCEDURE END TIME: 11:02 AM SURGEON(S)/PROCEDURALIST(S) AND TRUCK LEASING MANAGER(S): Surgeon(s) and Role: * Khushboo Mcintyre [...] 2023 TIME: 11:06 AM documented in this encounterZanesville City Hospital06-05-2024 Instructions* Patient Education - Rashid Howell RN [...] Signed By: Rashid Howell RN In Department: [facility] [id number] [facility]06-05-2024 Miscellaneous Notes* Patient Education - Rashid Howell [...] Department: HOSP MAIN FB36 documented in this encounterZanesville City Hospital06-03-2024 Telephone encounter Note * Telephone Encounter - Abdi Israel MD - 09/14/2023 10:56 AM EDT Thanks! Abdi [facility]06-03-2024 Miscellaneous Notes* Telephone Encounter - Abdi Israel [...] neck seen on PET CT at either [facility] or [place]. Thanks! Abdi documented in this encounterZanesville City Hospital06-03-2024 Telephone encounter Note * Telephone Encounter - Rodney Rinaldi - 09/14/2023 10:31 AM EDT Patient is scheduled 09/15 for biopsy [facility]06-03-[facility] Nurse Note* Yakelin Onofre LPN - 09/14/2023 10:29 AM EDT Pre- e instructions: Address: [address] Contacted patient and confirmed appt. for biopsy scheduled on 09/16/23, at [facility]. Diet: Procedure to be done with local anesthetic, you may eat, drink and take medications as prescribed the day of this procedure. Medications: IF ok with your Prescribing Provider: RADIOLOGY RECOMMENDS THESE MEDICATION RESTRICTIONS : None Labs: Lab work needs to be drawn by 09/15/23 at [facility]. Arrival: Please bring your Photo ID and Insurance Card. A general consent may need to be signed. Arrival at 8:30am to desk QB-1 ([facility]) and check in for your procedure. Automation Qa Tester/Transportation: Automation Qa Tester not necessary Written instructions provided to patient via [employer] If you have any questions please call [phone] [facility]06-03-[facility] Nurse Note* Yakelin Onofre LPN - 09/14/2023 10:29 AM EDT Pre- e instructions: Address: [address] Contacted patient and confirmed appt. for biopsy scheduled on 09/16/23, at [facility]. Diet: Procedure to be done with local anesthetic, you may eat, drink and take medications as prescribed the day of this procedure. Medications: IF ok with your Prescribing Provider: RADIOLOGY RECOMMENDS THESE MEDICATION RESTRICTIONS : None Labs: Lab work needs to be drawn by 09/15/23 at any [facility]. Arrival: Please bring your Photo ID and Insurance Card. A general consent may need to be signed. [facility]30[facility] and check in for your procedure. Automation Qa Tester/Transportation: Automation Qa Tester not necessary Written instructions provided to patient via [employer] If you have any questions please call [phone] documented in this encounterZanesville City Hospital06-03-2024 Telephone encounter Note * Telephone Encounter - Neha Leyva - 09/14/2023 10:17 AM EDT Spoke to pt and scheduled biopsy for 09/16/23. [facility]06-03-2024 Miscellaneous Notes* Telephone Encounter - Neha Leyva [...] this procedure: intermediate-high risk. Reference from [facility] Cut Off Machine Operator: https://[facility]f.policytech.com/dotNet/documents/?jehci=94382 STAFF SIGNATURE: Osito Galicia MD DATE: September [...] 10:44am REQUESTING STAFF: Abdi Israel MD PHONE/PAGER: [phone] SPECIFICS OF THE REQUEST:Cervical lymph node bx SPECIAL REQUESTS: TISSUE SAMPLE, LABWORK: N/A IS THIS REQUEST PART OF A RESEARCH PROTOCOL: No MEDICAL DIAGNOSIS: Malignant neoplasm of unspecified part of unspecified bronchus or lung (HCC) [C34.90] TYPE AND DATE OF THE EXAM THAT IS THE BASIS OF THE REQUEST: PET 09/01/2023 IMAGING: [facility] Note to all persons requesting biopsies: All biopsy requests will be scheduled as quickly as possible, based on the clinical urgency, availability of appointment times, the need to hold anti-thrombolytic therapy (aspirin, blood thinners) and the patient s schedule, including the need for an available new autos delivery driver. If a percutaneous biopsy or drainage is not felt to be safe or an alternative method for establishing a diagnosis is possible, this will be discussed directly with the requesting physician. documented in this encounterZanesville City Hospital06-03-2024 Telephone encounter Note * Telephone Encounter - Rodney Rinaldi - 09/14/2023 9:55 AM EDT Hey Girl, just checking on this one thanks [facility]05-29-2024 Telephone encounter Note* Telephone Encounter - Osito [...] for this procedure: intermediate-high risk. Reference from [facility] Cut Off Machine Operator: https://ccf.policy[employer].com/dotNet/documents/?mzgni=49251 STAFF SIGNATURE: Osito Galicia MD DATE: September 09, 2023 TIME: 9:31 AM [facility] Work Phone: 1(274) 179-416705-28-2024 Telephone encounter Note* Telephone Encounter - Yakelin OnofreSTACIE - 09/08/2023 11:34 AM EDT BX. COORDINATOR [...] DATE: September 08, 2023 TIME: 11:34 AM [facility]05-28-20[facility] Telephone encounter Note* Telephone Encounter - Chloe Nicole - 09/08/2023 10:43 AM EDTSummary: Cervical lymph node bx RADIOLOGY CALL CENTER INTAKE DATE: 09/08/2023 TIME: 10:44am REQUESTING STAFF: Abdi Israel MD PHONE/PAGER: [phone] SPECIFICS OF THE REQUEST:Cervical lymph node bx SPECIAL REQUESTS: TISSUE SAMPLE, LABWORK: N/A IS THIS REQUEST PART OF A RESEARCH PROTOCOL: No MEDICAL DIAGNOSIS: Malignant neoplasm of unspecified part of unspecified bronchus or lung (HCC) [C34.90] TYPE AND DATE OF THE EXAM THAT IS THE BASIS OF THE REQUEST: PET 09/01/2023 IMAGING: [facility] Note to all persons requesting biopsies: All biopsy requests will be scheduled as quickly as possible, based on the clinical urgency, availability of appointment times, the need to hold anti-thrombolytic therapy (aspirin, blood thinners) and the patient s schedule, including the need for an available new autos delivery driver. If a percutaneous biopsy or drainage is not felt to be safe or an alternative method for establishing a diagnosis is possible, this will be discussed directly with the requesting physician. [facility]05-28-[facility] Telephone encounter Note* Telephone Encounter - Abdi Israel MD - 09/08/2023 10:37 AM EDT Signed - thanks! Abdi [facility]05-28-2024 Telephone encounter Note* Telephone Encounter - Abdi Israel MD - 09/08/2023 9:51 AM EDT Yes please - Abdi [facility]05-28-2024 Telephone encounter Note* Telephone Encounter - Rodney Rinaldi - 09/08/2023 7:23 AM EDT Images from the original note were not included. Abdi Israel MD Graves, Ariana, LPN Cc: Silvia Jha RN; Rodney Rinaldi Please set Ms. Guerrero up for an US guided biopsy of one of the lymph nodes in the neck seen on PET CT at either [facility] or [place]. Thanks! Abdi [facility]05-21-2024 Consult note* Stacia Irving RN - 09/01/2023 [...] 2023 TIME: 12:54 PM documented in this encounterZanesville City Hospital05-21-2024 History of Present illness Narrative* Sahara Briceno RT(R) - 09/01/2023 12:45 PM EDT RADIOLOGY SERVICE PROGRESS NOTE SERVICE DATE: 09/01/2023 SERVICE TIME: 1:23 PM PATIENT IDENTITY VERIFICATION COMPLETED USING TWO (2) STANDARD IDENTIFIERS: Name and Date of confirmed by patient verbally POST EXAM PIV STATUS: Discontinued PROCEDURE TYPE: NM INJECT: PET/CT BODY SCAN. 6.6 mCi F18 FDG. No other medications given.. ADMINISTRATION TIME: 1248 PATIENT DISCHARGED TO: Ambulatory patient, left MD department area. A Diagnostic radioactive procedure has taken place, with no further precautions necessary other than routine body substance precautions. More information regarding radiation safety can be found usingthis link: [email or web address] 20Diagnostic%20Nuclear%20Medicine%20Procedures.pdf SIGNATURE: RT Fox(Araseli) PATIENT NAME: CINTHIA Guerrero DATE: September 01, 2023 TIME: 1:23 PM PAGER/CONTACT #: documented in this encounterZanesville City Hospital05-21-2024 NoteHNO ID: [id number] Author: YOVANNO, SAHARA, RT(R) Service: ? Author Type: Technologist Type: [...] 1248 PATIENT DISCHARGED TO: Ambulatory patient, left MD department area. A Diagnostic radioactive procedure has taken place, with no further precautions necessary other than routine body substance precautions. More information regarding radiation safety can be found using this link: [email or web address] 20Diagnostic%20Nuclear%20Medicine%20Procedures.pdf SIGNATURE: RT Fox(R) PATIENT NAME: CINTHIA Guerrero DATE: September 01, 2023 TIME: 1:23 PM PAGER/CONTACT #:[facility]05-21-2024 Progress note * Stacia Irving RN [...] DATE: September 01, 2023 TIME: 12:54 PM [facility]05-15-2024 Progress note Author Denver Rasmussen [facility] December 24, 2023 2:47pm Note Date/Time December 24, 2023 2:43pm [facility] [address] [place] [address] Pulmonology Progress Note Signed Patient: Cinthia Guerrero MR#: [id number] : 1960 Acct:[id number] Age/Sex: 63 / F Adm Date: 4 Loc: Room: [address] [place] [address] Type: ADM IN Attending Dr: Cassandra Andersen [...] 12:00 12/24/23 12:00 12/24/23 12:00 12/24/23 12:00 09/12/24 12:00 FiO2 28 12/20/23 21:00 Const General: [...] 02/23/2024. Documented By: Denver Rasmussen MD 4 [id number] Signed By: <Electronically signed by MD Denver Rasmussen> 12/24/23 [address] [facility] Work Phone: 1(838) 917-141105-07-2024 Telephone encounter Note* Telephone Encounter - Rodney Rinaldi - 08/18/2023 9:14 AM EDT Seen patient checked her mychart yesterday for appointments. [facility]05-07-[facility]24 Miscellaneous Notes* Telephone Encounter - Rodney Rinaldi [...] thank you. * Telephone Encounter - Silvia Jha RN [...] us know she had a CT at [facility] ordered per Dr Kenyon yesterday. He called her today to let her know that there was something concerning and he wanted her to contact our office. CT report printed from [facility] and images requested. Dr Israel- please advise when you have had a chance to review. Thank you Silvia Jha RN documented in this encounterZanesville City Hospital05-06-2024 Telephone encounter Note * Telephone Encounter - Rodney Rinaldi - 08/17/2023 1:18 PM EDT Called patient and left message with date and time of Time, due to her insurance It has to be put out 2 weeks I told her to please call me back if she has any questions thank you. [facility]05-06-2024 Telephone encounter Note* Telephone Encounter - Silvia Jha RN - 08/17/2023 1:00 PM EDT Scan from July was CXR. Per LORENZO, no need to get images. PSS- I spoke to pt and she is expecting your call to arrange PET here. Thank you Silvia Jha RN [facility]05-06-2024 Telephone encounter Note* Telephone Encounter - Abdi Israel MD - 08/17/2023 9:57 AM EDT Definite changes in the left chest from previous available scan in April. Ordered PET to further characterize findings and please request CT Chest images from 07/2023. Thanks! Abdi [facility]05-03-2024 Telephone encounter Note* Telephone Encounter - Silvia Jha RN - 08/14/2023 9:33 AM EDT Pt called in to let us know she had a CT at [facility] ordered per Dr Kenyon yesterday. He called her today to let her know that there was something concerning and he wanted her to contact our office. CT report printed from [facility] and images requested. Dr Israel- please advise when you have had a chance to review. Thank you Silvia Jha RN [facility]02-12-2024 NoteHNO ID: [id number] Author: ABDI ISRAEL MD Service: ? Author Type: Physician Type: Progress Notes Filed: 06/09/2023 01:43 Note Text: Radiation Oncology - Follow Up Note PATIENT NAME: CINTHIA Guerrero PATIENT DIAGNOSIS/PATIENT IDENTIFICATION: Ms. Guerrero is a 62-year-old woman with severe COPD, who is diagnosed with Stage IA3, [id number], non-small cell lung cancer arising from a [...] remains on supplemental oxygen at 2 L/min htbatb-yxy-bmqhg and continues on Pulmicort and albuterol rescue inhaler. He denies cough or hemoptysis or chest pain or difficulty swallowing today. She does note fatigue with stable appetite and hydration. She notes that she is in process of transitioning nurse outreach case manager. She otherwise denies any recent fevers, chills, [...] COPD, who is diagnosed with Stage IA3, [id number], non-small cell lung cancer arising from a [...] in the process of transitioning care between nurse outreach case manager. She had repeat CT imaging of the [...] which included preparing to see the patient, hpgy-fs-qckh patient care, and counseling and educating the patient/family/caregiver. This document has been created with the use of voice recognition technology. It may contain inaccuracies, misspellings, inaccurate syntax or inappropriate word context that are a result of the inadequacies/shortcomings of said technology/software.[facility]02-07-2024 Miscellaneous Notes* Telephone Encounter - Rodney Rinaldi - 05/20/2023 9:59 AM EST Patient is called and scheduled for next week * Telephone Encounter - Silvia Jha RN - 05/20/2023 9:51 AM EST Pt called in and was admitted to [facility] last week. They did CT Chest. She has been waiting on insurance approval for a chest CT and will not need one now. She would like follow up arranged. Reports printed from [facility] and images requested. PSS- please call pt and arrange follow up with Dr Israel for next week. Thank you Silvia Jha RN documented in this encounterZanesville City Hospital08-17-2023 History of Present illness Narrative* Abdi Israel MD - 11/27/2022 10:30 AM EDT Images from the original note were not included. Radiation Oncology - Follow Up Note PATIENT NAME: CITNHIA Guerrero PATIENT DIAGNOSIS/PATIENT IDENTIFICATION: Ms. Guerrero is a 62-year-old woman with severe COPD, who is diagnosed with Stage IA3, [id number], non-small cell lung cancer arising from a [...] been following up with pulmonary therapy at [facility] and with her nurse outreach case manager Dr. Driver and using her nebulizers. She [...] COPD, who is diagnosed with Stage IA3, [id number], non-small cell lung cancer arising from a [...] for disease progression locally or elsewhere in [facility]. She will follow with her nurse outreach case manager Dr. Driver to optimize her respiratory function [...] which included preparing to see the patient, jlkx-ds-ydxy patient care, and counseling and educating the patient/family/caregiver. This document has been created with the use of voice recognition technology. It may contain inaccuracies, misspellings, inaccurate syntax or inappropriate word context that are a result of the inadequacies/shortcomings of said technology/software. documented in this encounterZanesville City Hospital08-08-2023 Miscellaneous Notes* Telephone Encounter - Julisa Pressley LPN - 11/18/2022 3:29 PM EDT FYI--Dr. Driver's progress note is available in Care Everywhere. Dr. Kenyon's office note to be faxed over per his office. Julisa Pressley LPN * Telephone Encounter - Rosa Victoria RN - 11/18/2022 2:47 PM EDT Pt notified, CT canceled. Rashid working on records from Dr Kenyon and Dr Driver. Images/report being pushed from [facility]. Rosa Victoria RN * Telephone Encounter - Abdi Israel MD - 11/18/2022 2:11 PM EDT Yes, please cancel CT tomorrow. In addition to the images, please request any office notes from Dr. Kenyon as well as her nurse outreach case manager. Thanks! Abdi * Telephone Encounter - Rosa Victoria RN - 11/18/2022 1:39 PM EDT Pt called for CT 11/19/22. She reports CT completed 09/24/22 at [facility]. CT chest verified and will send images/report. LORENZO: Would you like to cancel CT? Please advise Rosa Victoria RN documented in this [facility]03-16-2023 Evaluation note* Encounter Date Diagnosis Assessment Notes [...] History of lung cancer (ICD-10 - Z85.118) [employer] Other 02-20-2023 History of Present illness Narrative* Abdi Israel MD - 06/02/2022 11:53 PM EST Radiation Oncology - Follow Up Note PATIENT NAME: CINTHIA Guerrero PATIENT Signed by: Abdi Israel MD I spent a total of 20 minutes on the date of the service which included preparing to see the patient, qgdf-cm-fzch patient care, and counseling and educating the patient/family/caregiver. This document has been created with the use of voice recognition technology. It may contain inaccuracies, misspellings, inaccurate syntax or inappropriate word context that are a result of the inadequacies/shortcomings of said technology/software. documented in this encounterZanesville City Hospital02-09-2023 Evaluation note* Encounter Date Diagnosis Assessment [...] History of lung cancer (ICD-10 - Z85.118) [employer] Other 02-01-2023 Miscellaneous Notes* Telephone Encounter - Abdi Israel MD - 05/14/2022 10:40 PM EST Thanks! Abdi * Telephone Encounter - Kendal Jha [facility] - 05/14/2022 1:59 PM EST Records faxed to Dr. Conde. Requested images be pushed to [facility]. * Telephone Encounter - Telma Pak - [...] yesterday showing fungal/aspergillus infection. Spoke with her nurse outreach case manager, Dr. Cross, today and agreed to refer to Dr. Conde for ID consult and management of pulmonary infection. Please send last years worth of notes and CT images in addition to pathology results. Thanks! Abdi * Telephone Encounter - Julisa Pressley LPN - 05/14/2022 11:56 AM EST Eleesha: Will you please refer Omaira to Dr. Conde for consult aleks dx: Fungal hyphae present, morphologically consistent with Aspergillus species (see comment. Dr. Israel--please sign pended consult order. I left two messages for Omaira to call the office so we can notify her that we are arranging this appt. Thanks Julisa Pressley LPN documented in this encounterZanesville City Hospital01-27-2023 History of Present illness Narrative* Interface Note - 05/09/2022 8:00 PM EST Epic Scheduled Downtime: 05/10/2022 1:00:00 AM to 05/10/2022 3:56:00 AM documented in this encounterZanesville City Hospital01-27-2023 Nurse Note* Luz Maria Blanca RN [...] Luz Maria Blanca RN documented in this encounterZanesville City Hospital01-24-2023 History of Present illness Narrative* Sahara Briceno, RT(R) - 05/06/2022 8:45 AM EST Radiology Service Progress Note PATIENT NAME: Omaira Guerrero DATE OF SERVICE: May 06, 2022 TIME: 8:53 AM PATIENT IDENTITY VERIFICATION COMPLETED USING TWO (2) IDENTIFIERS: Name and Date of confirmedby patient verbally. FALL SCREENING: Has the patient [...] BY: RT Fox(R) May 06, 2022 8:53 AM documented in this encounterZanesville City Hospital01-16-2023 History of Present illness Narrative* Vitor Kaur MD - 04/28/2022 3:03 PM EST VIRTUAL VISIT PROGRESS NOTE This is a virtual visit using [employer] video visit. It required patient-provider interaction for [...] eating well. COPD managed locally by a nurse outreach case manager. HISTORY REVIEWED (electronic chart updated): PAST MEDICAL [...] Emphysema. Controlled and stable; managed by local nurse outreach case manager. I spent a total of 60 minutes on the date of the service which included preparing to see the patient, hksz-pg-dsim patient care, completing clinical documentation, obtaining and/or reviewing separately obtained history, performing a medically appropriate examination, counseling and educating the pat ient/family/caregiver, ordering medications, tests, or procedures, communicating with other HCPs (not separately reported), independently interpreting results (not separately reported), communicatingresults to the patient/family/caregiver, and care coordination (not separately reported) Vitor Kaur MD April 28, 2022 documented in this encounterZanesville City Hospital01-11-2023 Miscellaneous Notes* Telephone Encounter - Telma Pak - 04/23/2022 9:58 AM EST Patient has been scheduled for both & confirmed appt day & time. Telma Pak * Telephone Encounter - Telma Pak - 04/23/2022 9:10 AM EST Called patient to schedule her for EKG & labs per e-mail. No answer, LMOV requesting a returnedphone call. Telma Pak documented in this encounterZanesville City Hospital01-10-2023 History of Present illness Narrative* Vitor Kaur MD - 04/22/2022 3:49 PM EST Bronchoscopy Request: Please schedule patient for the following: Outpatient Visit: Bronch Only, visit not needed (last H&P Date: 04/28/2022) Bronchoscopy Procedures: Navigation Bronchoscopy ([facility]) Diagnosis/Reason for Bronchoscopy: Lung nodule sampling only Timing: Specified date or range: After 04/28 Time Allotment/Tier: TIER 2: 2 HOUR Physician Performing Bronchoscopy: Preferably with Dr. Kaur, but can be Bronch A, B or C Needs Labs: Yes, CBC and BMP Needs EKG: Yes Needs CT prior: Yes EMN Bronchoscopy Protocol Chest CT I will try to get labs/EKG/COVID swab done at [facility] Does the pt need cardiac clearance?: No Is she on anticoagulants/anti-plt therapy?: No Nursing Considerations: (ie: group home, TB, respiratory isolation, clinical trial, Specific protocol etc.) none Additional notes to the wrapper 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 Please try to access the PET avid area if possible. Consultation request/referral by: Abdi Israel MD ([facility]) Reviewed by: PHANI Kaur MD April 22, 2022 3:49 PM Addendum: CBC with diff: WBC 6.81 03/02/2018 RBC 4.94 03/02/2018 Hemoglobin 14.7 03/02/2018 Hematocrit 44.5 03/02/2018 MCV 90.1 03/02/2018 MCH 29.8 03/02/2018 MCHC 33.0 03/02/2018 RDW-CV 12.4 03/02/2018 Platelet Count 234 03/02/2018 MPV 10.3 03/02/2018 Neut% 64.3 03/02/2018 Lymph% 25.3 03/02/2018 Rogers% 9.1 03/02/2018 Eosin% 0.7 03/02/2018 Baso% 0.6 03/02/2018 Abs Neut (ANC) 4.36 03/02/2018 Abs Rogers 0.62 03/02/2018 Abs Eosin 0.05 03/02/2018 Abs [...] - 0.96 mg/dL Final documented [facility] Miscellaneous Notes* Telephone Encounter - Julisa [...] time. Julisa Pressley LPN documented in this encounterZ[facility]12-02-[facility]22 History of Present illness Narrative* Abdi Israel MD - 03/14/2022 11:44 PM EST Radiation Oncology - Follow Up Note PATIENT NAME: Omaira Guerrero PATIENT Signed by: Abdi Israel MD I spent a total of 20 minutes on the date of the service which included preparing to see the patient, [id number] patient care, and counseling and educating the patient/family/caregiver. This document has been created with the use of voice recognition technology. It may contain inaccuracies, misspellings, inaccurate syntax or inappropriate word context that are a result of the inadequacies/shortcomings of said technology/software. documented in this encounterZanesville City [facility]11-25-2022 History of Present illness Narrative* Stacia Russell RN - 03/07/2022 7:30 AM EST Radiology Service Progress Note DATE OF SERVICE: [...] Left antecubital site with a Angio cath: 22gauge. IV SITE APPEARANCE: Clean,Dry and Intact SIGNATURE: Stacia Russell RN PATIENT NAME: Omaira Guerrero DATE: March 07, 2022 TIME: 7:39 AM * Sahara Briceno RT(R) - 03/07/2022 7:30 AM EST RADIOLOGY SERVICE PROGRESS NOTE SERVICE DATE: 03/07/2022 SERVICE TIME: 7:51 AM PATIENT IDENTITY VERIFICATION COMPLETED USING TWO (2) STANDARD IDENTIFIERS: Name and Date of confirmed by patient verbally POST EXAM PIV STATUS: Discontinued PROCEDURE TYPE: NM INJECT: PET/CT BODY SCAN. 7.2 mCi F18 FDG. No other medications given.. ADMINISTRATION TIME: 735 PATIENT DISCHARGED TO: Ambulatory patient, left MD department area. A Diagnostic radioactive procedure has taken place, with no further precautions necessary other than routine body substance precautions. More information regarding radiation safety can be found usingthis link: [email or web address] SIGNATURE: RT Fox(R) PATIENT NAME: Omaira Guerrero DATE: March 07, 2022 TIME: 7:51 AM PAGER/CONTACT #: documented in this encounterZanesville City Hospital11-11-2022 Miscellaneous Notes* Telephone Encounter - Telma Pak - 02/21/2022 11:41 AM EST Patient has been scheduled and notified of appointment. Telma Pak * Telephone Encounter - Telma Pak - 02/20/2022 2:12 PM EST I will have to work with Shruthi Martinez To find next available PET. Also, patient insurance will take at least 2 weeks. Telma Pak * Telephone Encounter - Julisa Pressley LPN - 02/20/2022 2:05 PM EST PET scan order pending your approval. Telma: Please schedule PET scan as indicated below. Julisa Pressley LPN Spoke with Dr. Cross and reviewed recent scan ... please set up Omaira Lang for PET/CT as soon as possible then follow-up to review documented in this encounterZ[facility]ville [facility]11-10-2022 Miscellaneous Notes* Telephone Encounter - Julisa Pressley LPN - 02/20/2022 1:[address] Israel please sign pended PET scan order that you requested for Omaira. Telma: Please schedule PET as indicated below. Thanks Julisa Pressley LPN Spoke with Dr. Cross and reviewed recent scan ... please set up Omaira Lang for PET/CT as soon as possible then follow-up to review documented in this encounterZanesville [facility] Hospital02-24-2022 History of Present illness Narrative* Abdi Israel MD - 06/06/2021 4:50 PM EST Radiation Oncology - Follow Up Note PATIENT NAME: Omaira Guerrero PATIENT DIAGNOSIS/PATIENT IDENTIFICATION: Ms. Guerrero is a 60-year-old woman with severe COPD, who is diagnosed with Stage IA3, [id number], non-small cell lung cancer arising from a [...] COPD, who is diagnosed with Stage IA3, [id number], non-small cell lung cancer arising from a [...] which included preparing to see the patient, [id number]-hs-[id number] patient care and counseling and educating the patient/family/caregiver. This document has been created with the use of voice recognition technology. It may contain inaccuracies, misspellings, inaccurate syntax or inappropriate word context that are a result of the inadequacies/shortcomings of said technology/software. documented in this encounterZanesville City Hospital02-16-2022 History of Present illness Narrative* Stacia Russell RN - 05/29/2021 10:45 AM EST Radiology Service Progress Note DATE OF SERVICE: May 29, 2021 TIME: 10:47 AM PATIENT WEIGHT: 114LBS PATIENT IDENTITY VERIFICATION COMPLETED USING TWO (2) [...] Range Status 03/02/2018 >60 Final P.O.C.T. RESULTS: N/A May 29, 2021 TREATMENT: N/A IV SITE: Ambulatory: A peripheral IV was started in the Left forearm with a Angio cath: 20 gauge. IV SITE APPEARANCE: Clean,Dry and Intact SIGNATURE: Stacia Russell RN PATIENT NAME: Omaira Guerrero DATE: May 29, 2021 TIME: 10:47 AM * Sahara Briceno, RT(R) - 05/29/2021 10:45 AM EST Radiology Service Progress Note PATIENT NAME: Omaira Guerrero DATE OF SERVICE: May 29, 2021 TIME: 11:02 AM PATIENT IDENTITY VERIFICATION COMPLETED USING TWO (2) IDENTIFIERS: Name and Date of confirmedby patient verbally. FALL SCREENING: Has the patient had 2 falls in the last year or 1 fall with injury or currently using an Ambulatory Assistive Device (Walker, Cane, Wheelchair, Crutches, etc.)? No PATIENT GENDER DATA: Female. status: : No status: NO. PATIENT RELEVANT IMPLANT DATA REVIEWED: Not Applicable RADIOLOGY DEPARTMENT: CT; Exam(s) Completed: Chest PERIPHERAL IV DATA: Site assessment: Clean,Dry and Intact, Site disposition Discontinued SIGNED BY: RT Fox(R) May 29, 2021 11:02 AM documented in this encounterZanesville City Hospital10-01-2021 NoteChief Complaint consultation for nevus HPI Staff 60 year old female presents on consultation from Dr. Kenyon for right lower leg fresh colored skin lesion. Present for 4 months. Scabbed area from recent trama. Denies itching. Also notes dark pigmentedlesion to right protestant. Present 4 months. Does not bleed or itch. History of Present Illness 60 yo female with h/o COPD, previous lung cancer, on oxygen; referred for changing skin lesions; right lower extremity lesion enlarging; recently scratched so scabbed over; no bleeding; right protestant lesion with small scab, no pain or [...] nodes, cyanosis, clubbing. Skin: no rashes right protestant with 4 mm raised, erythematous lesion with [...] infarction: Brother. Cardiac arrest: Mother, Father and Sister.[facility] HospitalComment on above:Result Comment: Electronically Signed By: JIM DAVENPORT, Jose Domínguez\Date and Time Signed: 01/11/21 11:20 [id number] History general Narrative - Reported* Type Description Date Medical History COPD Surgical History appendectomy Surgical History csection Hospitalization History PNA at [facility] 05/2011 [employer] Other Evaluation note* Diagnosis Non-small cell cancer of left lung (HCC)- Primary Neoplasm of lung Neoplasm of unspecified nature of respiratory system [facility] Diagnosis Neoplasm of lung- Primary Neoplasm of unspecified nature of respiratory system [facility]* Diagnosis Non-small cell cancer of left lung (HCC)- Primary [facility]* Diagnosis Lung mass- Primary Swelling, mass, or lump in chest documented [facility]* Diagnosis Preoperative examination- Primary Preoperative examination, unspecified Bronchiolar disease Other diseases of trachea and bronchus documented in this encounter [facility] note* Diagnosis Non-small cell cancer of left lung (HCC)- Primary Lung mass Swelling, mass, or lump in chest Centrilobular emphysema (HCC) Other emphysema Bronchiolar disease Other diseases of trachea and bronchus [facility]* Diagnosis Bronchiolar disease Other diseases of trachea and bronchus Lung nodule Solitary pulmonary nodule documented in this encounter [facility] note* Diagnosis Aspergillus pneumonia (HCC)- Primary Aspergillosis Non-small cell cancer of left lung (HCC) documented in this encounter [facility] note* Diagnosis Non-small cell cancer of left lung (HCC)- Primary documented in this encounter [facility] noteNo [employer] Other evaluation note* Diagnosis Neoplasm of lung- Primary Neoplasm of unspecified nature of respiratory system documented in this encounter [facility] note* Diagnosis Onset Date Resolution Status Chronic respiratory failure with hypoxia acute COPD exacerbation acute Exertional shortness of breath acute Pneumonia acute Pulmonary cachexia due to COPD acute Tachycardia acute [facility] Work Phone: evaluation note* Diagnosis Onset Date Resolution Status Acute hypoxic respiratory failure acute Cachexia acute Chronic respiratory failure with hypoxia acute COPD exacerbation acute Exertional shortness of breath acute Pneumonia acute Pulmonary cachexia due to COPD acute Tachycardia acute [facility] Work Phone: evalulbrel note* Diagnosis Malignant neoplasm of unspecified part of unspecified bronchus or lung (HCC)- Primary [facility]* Diagnosis Neoplasm- Primary Neoplasm of unspecified nature, site unspecified documented in this encounter [facility] note* Diagnosis Onset Date Resolution Status Chronic respiratory failure with hypoxia acute COPD (chronic obstructive pulmonary disease) acute [facility] Work Phone: evalupdxdm note* Diagnosis Non-small cell cancer of left lung (HCC)- Primary 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 Follows with outside pulm at [facility], Dr. Valery DAVIS in October per pt. Diminished breath sounds bilaterally throughout, no wheezing. SpO2 95% on 2L O2. Pt reports that she started prednisone taper from her nurse outreach case manager today, currently taking prednisone 40 mg. Ptreports she called nurse outreach case manager's office because she felt like her breathing [...] treated with SBRT. documented [facility]* Diagnosis Onset Date Resolution Status Chronic [...] hazards to health [facility]* Diagnosis Malignant neoplasm of unspecified part [...] hazards to health [facility]* Diagnosis Onset Date Resolution Status Chronic respiratory failure with hypoxia acute COPD (chronic obstructive pulmonary disease) acute Chronic respiratory failure with hypoxia acute COPD (chronic obstructive pulmonary disease) acute Sleep apnea, obstructive acu te Chronic respiratory failure with hypoxia acute COPD (chronic obstructive pulmonary disease) acute Pulmonary cachexia due to COPD acute Sleep apnea, obstructive acu te [facility] Work Phone: Evaluation note* Diagnosis Malignant [...] hazards to health [facility]* Diagnosis Onset Date Resolution Status Chronic [...] COPD acute Sleep apnea, obstructive acu te [facility] Work Phone: Evaluation note* Diagnosis Lung mass Swelling, mass, or lump in chest Preoperative examination- Primary Preoperative examination, unspecified Metastasis [...] hazards to health [facility]* Diagnosis Neoplasm of lung Neoplasm of unspecified nature of respiratory system Preoperative examination- Primary Preoperative examination, unspecified Metastasis [...] hazards to health [facility]* Diagnosis Neoplasm of lung Neoplasm of unspecified nature of respiratory system Preoperative examination- Primary Preoperative examination, unspecified Metastasis [...] hazards to health [facility]* Diagnosis Preoperative examination- Primary Preoperative examination, [...] of tobacco use, presenting hazards to health Malignant neoplasm of unspecified part of unspecified bronchus or lung (HCC) documented in this encounter [facility] note* Diagnosis Preoperative examination- Primary Preoperative examination, [...] health Non-small cell cancer of left lung (HCC)- Primary documented in this encounter [facility] note* Diagnosis Right ear impacted cerumen- Primary Impacted cerumen Foreign body of left ear, initial encounter documented in [facility] encounter [facility] Author Mg Vaughn [facility] December 20, 2023 10:58pm Note Date/Time December 20, 2023 10:58pm [facility] [address] [place] [address] Hospitalist H&P Signed Patient: Cinthia Guerrero MR#: [id number] : 1960 Acct:[id number] Age/Sex: 63 / F Adm Date: 4 Loc: Room: [address] [place] [address] Type: ADM INOo Attending Dr: Mg Vaughn MD Copies to: MD Adithya Koroma MD~ HPI DATE OF EXAMINATION: 12/20/23 CHIEF COMPLAINT: COPD exacerbation HISTORY OF PRESENT ILLNESS: This is 61-year-old female with chronic respiratory failure secondary to COPD, on supplemental oxygen at home, pulmonary cachexia, [facility]. At that time COVID [...] negative unless noted below or in HPI [facility] Medical History (Updated 12/20/23 @ 21:57 [...] % (Auto) 9.8 % (.) 12/20/23 20:08 Rogers % (Auto) 5.9 % (.) 12/20/23 20:08 Eos % (Auto) 0.1 % (.) 12/20/23 20:08 Baso % (Auto) 0.3 % (.) 12/20/23 20:08 Nucleat RBC Rel Count 0.1 /100 WBC (0-0.5) 12/20/23 20:08 Neut # (Auto) 7.0 x10E3/uL (1.8-7.7) 12/20/23 20:08 Lymph # (Auto) 0.8 x10E3/uL (1.00-4.8) L 12/20/23 20:08 Rogers # (Auto) 0.5 x10E3/uL (0.0-0.8) 12/20/23 20:08 [...] -Will consult pulmonology. Dr. Gannon is her nurse outreach case manager. -Budesonide via nebulization every 12 hours, and DuoNebs [id number]. -O2 supplementation to maintain O2 sats greater [...] <Electronically signed by Mg Vaughn MD> 12/20/232257 [facility] Work Phone: Hospital Discharge instructions Additional Instructions I may not have addressed or treated all of your medical illnesses or the abnormal blood work or imaging studies during this hospitalization. Please ask your primary care provider to obtain [facility] records entirely to follow up on all of the abnormal physical, laboratory, and imaging findings that I have not addressed. Please return back to the emergency room or seek medical attention if your symptoms worsen or return. You asked me to give you the name of the lung specialist who is affiliated with [facility]. Please follow-up with Dr. Rasmussen regarding COPD, lung nodule and pulmonary care. Until you get your first appointment with Dr. Rasmussen, continue to follow-up with Dr. Driver guarding your lung nodule and COPD You would need to have follow-up on lung nodule that is seen before Discharging you from [facility] does not mean that your medical care [...] Thank you. Continue home oxygen per chronic orders.[facility] Work Phone: Reason for referral (narrative)* Diagnostic Procedure Only (Routine) - Additional Clinical Info Needed Specialty Diagnoses / Procedures Referred By Contac t Referred To Contact MOLECULAR & FUNCTIONAL IMAGING Diagnoses Neoplasm of lung Procedures NM PET/CT SKULL-THIGH INITIAL PET IMAGING CT ATTENUATION SKULL BASE MID-THIGH Abdi Israel MD [address] [place] [address] [place] [address] Molecular & Functional Imaging [address] [place] [id number] Referral ID Status Reason Start Date Expiration Date Visits Requested Visits Authorized [id number] Additional Clinical Info Needed Auto-Generat ed Referral 03/22/2023 1 1 [facility] for referral (narrative)* Diagnostic Procedure Only (Routine) - Additional Clinical Info Needed Specialty Diagnoses / Procedures [facility] Referred To Contact MOLECULAR & FUNCTIONAL IMAGING Diagnoses Malignant neoplasm of unspecified part of unspecified bronchus or lung (HCC) Procedures NM PET/CT SKULL-THIGH SUBSEQUENT PET IMAGING CT ATTENUATION SKULL BASE MID-THIGH Abdi Israel MD [address] [place] [address] [place] [address] Molecular & Functional Imaging [address] [place] [address] Referral ID Status Reason Start Date Expiration Date Visits Requested Visits Authorized [id number] Additional Clinical Info Needed Auto-Generat ed Referral 08/17/2023 09/15/2024 1 1 [facility] for referral (narrative)* Outpatient Procedure (Routine) - Closed Specialty Diagnoses / Procedures [facility] Referred To Contact [facility] Diagnoses Non-small cell cancer of left lung (HCC) Lymphadenopathy Procedures ECG COMPLETE ECG ROUTINE ECG W/LEAST 12 LDS W/I&R Teo Craft MD [address] [place] [address] [place] [address] Referral ID Status Reason Start Date Expiration Date V isits Requested Visits Authorized [id number] Closed Auto-Generate d Referral 11/05/2023 10/26/2024 1 1 * Consult, Test, Treat (Routine) - Authorized Specialty Diagnoses / Procedures [facility] Referred To Contact Diagnoses Non-small cell cancer of left lung (HCC) 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) Lymphadenopathy Procedures REFER TO [facility] PREOPERATIVE OPTIMIZATION OFFICE/OUTPATIENT [facility] 60 MINUTES Teo Craft MD [address] [place] [address] Referral ID Status Reason Start Date Expiration Date Visits Requested Visits Authorized [id number] Authorized PCP Requested Referral 11/05/2023 10/26/2024 1 1 [facility] for referral (narrative)* Diagnostic Procedure Only (Routine) - Closed Specialty Diagnoses / Procedures [facility] Referred To Contact MOLECULAR & FUNCTIONAL IMAGING Diagnoses Malignant neoplasm of unspecified part of unspecified bronchus or lung (HCC) Procedures NM PET/CT SKULL-THIGH SUBSEQUENT PET IMAGING CT ATTENUATION SKULL BASE MID-THIGH Abdi Israel MD [address] [place] [address] [place] [address] Molecular & Functional Imaging [address] [place] [address] Referral ID Status Reason Start Date Expiration Date V isits Requested Visits Authorized [id number] Closed Auto-Generate d Referral 08/21/2023 10/20/2023 1 1 [facility] for referral (narrative)* Diagnostic Procedure Only (Routine) - Closed Specialty Diagnoses / Procedures Referred By [facility] Referred To Contact MOLECULAR & FUNCTIONAL IMAGING Diagnoses Neoplasm of lung Procedures NM PET/CT SKULL-THIGH INITIAL PET IMAGING CT ATTENUATION SKULL BASE MID-THIGH Abdi Israel MD [address] [place] [address] [place] [address] Molecular & Functional Imaging [address] [place] [address] Referral ID Status Reason Start Date Expiration Date V isits Requested Visits Authorized [id number] Closed Auto-Generate d Referral 02/22/2022 04/23/2022 1 1 [facility] for referral (narrative)* Diagnostic Procedure Only (Routine) - Closed Specialty Diagnoses / Procedures [facility] Referred To Contact CT IMAGING Diagnoses Neoplasm of lung Procedures CT CHEST W IVCON CAT SCAN OF CHEST CONTRAST Abdi Israel MD [address] [facility] [place] [address] [place] [address] Referral ID Status Reason Start Date Expiration Date V isits Requested Visits Authorized [id number] Closed Auto-Generate d Referral 05/16/2021 07/15/2021 1 1 [facility] Summary Purpose Family History No Family History Records Found Relationship Condition Age at Onset Recorded Date/T alvarez brother Coronary artery disease Unknown Heart disease Unknown father Coronary artery disease Unknown sister Coronary artery disease Unknown Advance Directives No Advanced Directives Records FoundDocuments on File Type Date 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 Advance Directive(s) Advance Directive(s) 03/19/2018 8:37 AM Advance Directive Response Recorded Date/ Time Advance Directives No February 11:15am Advance Directive Response Recorded Date/ Time Advance Directives No February 12:15pm Advance Directive Response Recorded Date/ Time Advance Directives No September 28 2:19pm Advance Directive Response Recorded Date/ Time Advance Directives No September 28 1:19pm Reason for Referral Specialty Diagnoses / Procedures Referred By Contac t Referred To Contact CT IMAGING Diagnoses Non-small cell cancer of left lung (HCC) Neoplasm of lung Procedures CT CHEST W IVCON DIAGNOSTIC COMPUTED TOMOGRAPHY THORAX W/CONTRAST Abdi Israel MD [address] [place] [address] Ct Imaging Referral ID Status Reason Start Date Expiration Date Visits Requested Visits Authorized [id number] Pending Review Auto-Generat ed Referral 06/06/2022 07/06/2022 1 1 Specialty Diagnoses / Procedures Referred By Contac t Referred To Contact CT IMAGING Diagnoses Lung mass Procedures CT CHEST WO IVCON DIAGNOSTIC COMPUTED TOMOGRAPHY THORAX W/O CNTRSVitor Tamayo MD [address] [place] [address] Ct Imaging Referral ID Status Reason Start Date Expiration Date Visits Requested Visits Authorized [id number] Pending Review Auto-Generat ed Referral 04/22/2022 05/22/2023 1 1 Specialty Diagnoses / Procedures Referred By Contac t Referred To Contact [facility] Diagnoses Lung mass Procedures ECG COMPLETE ECG ROUTINE ECG W/LEAST 12 LDS W/I&R Vitor Kaur MD [address] [place] [address] [facility] [address] [place] [address] Referral ID Status Reason Start Date Expiration Date Visits Requested Visits Authorized [id number] Pending Review Auto-Generat ed Referral 04/22/2022 04/22/2023 1 1 Specialty Diagnoses / Procedures Referred By Contac t Referred To Contact Infectious Diseases Diagnoses Aspergillus pneumonia (HCC) Non-small cell cancer of left lung (HCC) Procedures CONSULT TO INFECTIOUS DISEASES Abdi Israel MD [address] [place] [address] [place] [address] Referral ID Status Reason Start Date Expiration Date Visits Requested Visits Authorized [id number] Ref Not Required PCP Requested Referral 05/14/2022 05/14/2023 1 1 Specialty Diagnoses / Procedures Referred By Contac t Referred To Contact CT IMAGING Diagnoses Neoplasm of lung Procedures CT CHEST W IVCON DIAGNOSTIC COMPUTED TOMOGRAPHY THORAX W/CONTRAST Abdi Israel MD [address] [place] [address] [place] [address] Ct Imaging [facility]95 Referral ID Status Reason Start Date Expiration Date Visits Requested Visits Authorized [id number] Pending Review Auto-Generat ed Referral 05/13/2023 12/27/2023 1 1 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) Procedures CONSULT TO ENT OFFICE/OUTPATIENT [facility] MDM 60 MINUTES Abdi Israel MD [address] [place] [address] [place] [address] Referral ID Status Reason Start Date Expiration Date Visits Requested Visits Authorized [id number] Authorized PCP Requested Referral 09/24/2023 09/22/2024 1 1 Specialty Diagnoses / Procedures Referred By Contac t Referred To Contact CT IMAGING Diagnoses Malignant neoplasm of unspecified part of unspecified bronchus or lung (HCC) Procedures CT CHEST W IVCON DIAGNOSTIC COMPUTED TOMOGRAPHY THORAX W/CONTRAST Abdi Israel MD [address] [place] [address] Ct Imaging [place] [address] Referral ID Status Reason Start Date Expiration Date Visits Requested Visits Authorized [id number] Authorized Auto-Generat ed Referral 12/02/2023 01/31/2024 1 1 Specialty Diagnoses / Procedures Referred By Contac t Referred To Contact MOLECULAR & FUNCTIONAL IMAGING Diagnoses Malignant neoplasm of unspecified part of unspecified bronchus or lung (HCC) Procedures NM PET/CT SKULL-THIGH SUBSEQUENT PET IMAGING CT ATTENUATION SKULL BASE MID-THIGH Abdi Israel MD [address] [place] [address] Molecular & Functional Imaging [address] [place] [address] Referral ID Status Reason Start Date Expiration Date V isits Requested Visits Authorized [id number] Denied Auto-Generate d Referral 12/02/2023 01/31/2024 1 0 Specialty Diagnoses / Procedures Referred By Contac t Referred To Contact CT IMAGING Diagnoses Lung mass Procedures CT CHEST WO IVCON DIAGNOSTIC COMPUTED TOMOGRAPHY THORAX W/O CNTRST Vitor Kaur MD [address] [place] [address] Ct Imaging [place] [address] Referral ID Status Reason Start Date Expiration Date V isits Requested Visits Authorized [id number] Closed Auto-Generate d Referral 04/22/2022 06/23/2022 1 1 Referral ID Status Reason Start Date Expiration Date V isits Requested Visits Authorized [id number] Closed Auto-Generate d Referral 12/02/2023 01/31/2024 1 1 Medications Administered Section Inactive Administered [...] to COPD Sleep apnea, obstructive Chief Complaint Admit Date sob-hx copd December 21, 2023 9:37am sob-hx copd December 21, 2023 6:09pm CEA: 3 mo f/u COPD February 23, 2024 2:29pm Reason for Visit Admit Date Chronic respiratory failure with hypoxia December 03, 2023 9:21am COPD (chronic obstructive pulmonary dise ase) December 03, 2023 9:21am Sleep apnea, obstructive December 02 9:21am Acute hypoxic respiratory failure Septem 2023 9:37am Cachexia December 21, 2023 9:37am Chronic hypercapnic respiratory failure December 21, 2023 9:37am Chronic respiratory failure with hypoxia December 21, 2023 9:37am COPD (chronic obstructive pulmonary dise ase) December 21, 2023 9:37am COPD exacerbation December 21, 2023 9:37am Pulmonary cachexia due to COPD December 21, 2023 9:37am Sleep apnea, obstructive December 21, 2023 9:37am Cavitary lung disease February 22 2:29pm COPD (chronic obstructive pulmonary dise ase) February 23, 2024 2:29pm Chief Complaint Admit Date sob-hx copd December 21, 2023 9:37am sob-hx copd December 21, 2023 6:09pm CEA: 3 mo f/u COPD February 23, 2024 2:29pm [email or web address] February 26, 2024 11:33am Additional Source Comments INFORMATION SOURCE (unrecogn ized section and content) DATE CREATED AUTHOR 10/06/2017 [facility] DATE CREATED AUTHOR AUTHOR'S ORGANIZ ATION 10/09/2017 [facility] DATE CREATED AUTHOR AUTHOR'S ORGANIZ ATION 03/22/2018 [facility] DATE CREATED AUTHOR AUTHOR'S ORGANIZ ATION 03/26/2021 [facility] DATE CREATED AUTHOR AUTHOR'S ORGANIZ ATION 09/19/2022 [facility] DATE CREATED AUTHOR AUTHOR'S ORGANIZ ATION 09/14/2023 [facility] DATE CREATED AUTHOR AUTHOR'S ORGANIZ ATION 11/19/2023 [facility] DATE CREATED AUTHOR AUTHOR'S ORGANIZ ATION 02/19/2024 [facility] DATE CREATED AUTHOR AUTHOR'S ORGANIZ ATION 03/03/2024 [facility] DATE CREATED AUTHOR AUTHOR'S ORGANIZ ATION 03/12/2024 [facility] Source Comments (unrecognize d section and content) In the event this informatio n is protected by the Federal Confidentiality of Alcohol and Drug Abuse Patient Records regulations: The Federal rules restrict any use of the information to criminally investigate or prosecute any alcohol or drug abuse patient.[facility] the event this information is protected by the Federal Confidentiality of Alcohol and Drug Abuse Patient Records regulations: The Federal rules restrict any use of the information to criminally investigate or prosecute any alcohol or drug abuse patient.[facility] the event this information is protected by the Federal Confidentiality of Alcohol and Drug Abuse Patient Records regulations: The Federal rules restrict any use of the information to criminally investigate or prosecute any alcohol or drug abuse patient.[facility] the event this information is protected by the Federal Confidentiality of Alcohol and Drug Abuse Patient Records regulations: The Federal rules restrict any use of the information to criminally investigate or prosecute any alcohol or drug abuse patient.[facility] the event this information is protected by the Federal Confidentiality of Alcohol and Drug Abuse Patient Records regulations: The Federal rules restrict any use of the information to criminally investigate or prosecute any alcohol or drug abuse patient.[facility] the event this information is protected by the Federal Confidentiality of Alcohol and Drug Abuse Patient Records regulations: The Federal rules restrict any use of the information to criminally investigate or prosecute any alcohol or drug abuse patient.[facility] the event this information is protected by the Federal Confidentiality of Alcohol and Drug Abuse Patient Records regulations: The Federal rules restrict any use of the information to criminally investigate or prosecute any alcohol or drug abuse patient.[facility] the event this information is protected by the Federal Confidentiality of Alcohol and Drug Abuse Patient Records regulations: The Federal rules restrict any use of the information to criminally investigate or prosecute any alcohol or drug abuse patient.[facility] the event this information is protected by the Federal Confidentiality of Alcohol and Drug Abuse Patient Records regulations: The Federal rules restrict any use of the information to criminally investigate or prosecute any alcohol or drug abuse patient.[facility] the event this information is protected by the Federal Confidentiality of Alcohol and Drug Abuse Patient Records regulations: The Federal rules restrict any use of the information to criminally investigate or prosecute any alcohol or drug abuse patient.[facility] the event this information is protected by the Federal Confidentiality of Alcohol and Drug Abuse Patient Records regulations: The Federal rules restrict any use of the information to criminally investigate or prosecute any alcohol or drug abuse patient.[facility] the event this information is protected by the Federal Confidentiality of Alcohol and Drug Abuse Patient Records regulations: The Federal rules restrict any use of the information to criminally investigate or prosecute any alcohol or drug abuse patient.[facility] the event this information is protected by the Federal Confidentiality of Alcohol and Drug Abuse Patient Records regulations: The Federal rules restrict any use of the information to criminally investigate or prosecute any alcohol or drug abuse patient.[facility] the event this information is protected by the Federal Confidentiality of Alcohol and Drug Abuse Patient Records regulations: The Federal rules restrict any use of the information to criminally investigate or prosecute any alcohol or drug abuse patient.[facility] the event this information is protected by the Federal Confidentiality of Alcohol and Drug Abuse Patient Records regulations: The Federal rules restrict any use of the information to criminally investigate or prosecute any alcohol or drug abuse patient.[facility] the event this information is protected by the Federal Confidentiality of Alcohol and Drug Abuse Patient Records regulations: The Federal rules restrict any use of the information to criminally investigate or prosecute any alcohol or drug abuse patient.[facility] the event this information is protected by the Federal Confidentiality of Alcohol and Drug Abuse Patient Records regulations: The Federal rules restrict any use of the information to criminally investigate or prosecute any alcohol or drug abuse patient.[facility] the event this information is protected by the Federal Confidentiality of Alcohol and Drug Abuse Patient Records regulations: The Federal rules restrict any use of the information to criminally investigate or prosecute any alcohol or drug abuse patient.[facility] the event this information is protected by the Federal Confidentiality of Alcohol and Drug Abuse Patient Records regulations: The Federal rules restrict any use of the information to criminally investigate or prosecute any alcohol or drug abuse patient.[facility]In the event this information is protected by the Federal Confidentiality of Alcohol and Drug Abuse Patient Records regulations: The Federal rules restrict any use of the information to criminally investigate or prosecute any alcohol or drug abuse patient.[facility] the event this information is protected by the Federal Confidentiality of Alcohol and Drug Abuse Patient Records regulations: The Federal rules restrict any use of the information to criminally investigate or prosecute any alcohol or drug abuse patient.[facility] the event this information is protected by the Federal Confidentiality of Alcohol and Drug Abuse Patient Records regulations: The Federal rules restrict any use of the information to criminally investigate or prosecute any alcohol or drug abuse patient.[facility] the event this information is protected by the Federal Confidentiality of Alcohol and Drug Abuse Patient Records regulations: The Federal rules restrict any use of the information to criminally investigate or prosecute any alcohol or drug abuse patient.[facility] the event this information is protected by the Federal Confidentiality of Alcohol and Drug Abuse Patient Records regulations: The Federal rules restrict any use of the information to criminally investigate or prosecute any alcohol or drug abuse patient.[facility] the event this information is protected by the Federal Confidentiality of Alcohol and Drug Abuse Patient Records regulations: The Federal rules restrict any use of the information to criminally investigate or prosecute any alcohol or drug abuse patient.[facility]In the event this information is protected by the Federal Confidentiality of Alcohol and Drug Abuse Patient Records regulations: The Federal rules restrict any use of the information to criminally investigate or prosecute any alcohol or drug abuse patient.[facility] the event this information is protected by the Federal Confidentiality of Alcohol and Drug Abuse Patient Records regulations: The Federal rules restrict any use of the information to criminally investigate or prosecute any alcohol or drug abuse patient.[facility] the event this information is protected by the Federal Confidentiality of Alcohol and Drug Abuse Patient Records regulations: The Federal rules restrict any use of the information to criminally investigate or prosecute any alcohol or drug abuse patient.[facility]In the event this information is protected by the Federal Confidentiality of Alcohol and Drug Abuse Patient Records regulations: The Federal rules restrict any use of the information to criminally investigate or prosecute any alcohol or drug abuse patient.[facility]In the event this information is protected by the Federal Confidentiality of Alcohol and Drug Abuse Patient Records regulations: The Federal rules restrict any use of the information to criminally investigate or prosecute any alcohol or drug abuse patient.[facility]In the event this information is protected by the Federal Confidentiality of Alcohol and Drug Abuse Patient Records regulations: The Federal rules restrict any use of the information to criminally investigate or prosecute any alcohol or drug abuse patient.[facility]In the event this information is protected by the Federal Confidentiality of Alcohol and Drug Abuse Patient Records regulations: The Federal rules restrict any use of the information to criminally investigate or prosecute any alcohol or drug abuse patient.[facility]In the event this information is protected by the Federal Confidentiality of Alcohol and Drug Abuse Patient Records regulations: The Federal rules restrict any use of the information to criminally investigate or prosecute any alcohol or drug abuse patient.[facility]In the event this information is protected by the Federal Confidentiality of Alcohol and Drug Abuse Patient Records regulations: The Federal rules restrict any use of the information to criminally investigate or prosecute any alcohol or drug abuse patient.[facility] Reason for Visit (unrecogniz ed section and content) Reason Comments Lung Cancer Reason Comments Orders Reason Comments Orders Reason Comments Lung Cancer Reason Comments Appointment PreOp Bronch Reason Comments Patient Update Appointment Reason Comments Lung Cancer Lung Mass Reason Comments Appointment Specialty Diagnoses / Procedures Referred By Dwayne rosa Referred To Contact ADMITTING Diagnoses Bronchiolar disease Procedures [facility] FLUOR GDNCE DX W/CELL WASHG SPX BRONCHOSCOPY [facility] H[address] [address] Referral ID Status Reason Start Date Expiration Date Visits Re quested Visits Authorized [id number] 1 1 Reason Comments Appointment Reason Comments Patient Update Future Appointment Reason Comments Patient Update Reason Comments Cervical lymph node bx Reason Comments Biopsy Request Specialty Diagnoses / Procedures Referred By Contsalazar t Referred To Contact ADMITTING Diagnoses Malignant neoplasm of unspecified part of unspecified bronchus or lung (HCC) Procedures BX/EXC LYMPH NODE NEEDLE SUPERFICIAL BIOPSY OR EXCISION LYMPH NODES(S) NEEDLE SUPERFICIAL [facility] [address] [place] [address] Referral ID Status Reason Start Date Expiration Date Visits Re quested Visits Authorized [id number] 1 1 Reason Comments Appointment Confirmation Reason Comments Anesthesia Consult Reason Comments Patient Update Reason Comments New Patient Would like to discus s lymph node removal. 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) Procedures CONSULT TO ENT OFFICE/OUTPATIENT [facility] HIGH MDM 60 MINUTES Abdi Israel MD [address] [place] [address] [place] [address] Referral ID Status Reason Start Date Expiration Date V isits Requested Visits Authorized [id number] Closed PCP Requested Referral 09/24/2023 09/22/2024 1 1 Reason Comments Results Reason Comments Radiology NM Specialty Diagnoses / Procedures Referred By Contac t Referred To Contact MOLECULAR & FUNCTIONAL IMAGING Diagnoses Malignant neoplasm of unspecified part of unspecified bronchus or lung (HCC) Procedures NM PET/CT SKULL-THIGH SUBSEQUENT PET IMAGING CT ATTENUATION SKULL BASE MID-THIGH Abdi Israel MD [address] [place] [address] [place] [address] Molecular & Functional Imaging [address] [place] [address] Referral ID Status Reason Start Date Expiration Date V isits Requested Visits Authorized [id number] Closed Auto-Generate d Referral 08/21/2023 10/20/2023 1 1 Reason Comments Appointment Confirmation Reason Comments Radiology CT Specialty Diagnoses / Procedures Referred By Contac t Referred To Contact CT IMAGING Diagnoses Lung mass Procedures CT CHEST WO IVCON DIAGNOSTIC COMPUTED TOMOGRAPHY THORAX W/O Vitor Molina MD [address] [place] [id number] Imaging [place] [address] Referral ID Status Reason Start Date Expiration Date V isits Requested Visits Authorized [id number] Closed Auto-Generate d Referral 04/22/2022 06/23/2022 1 1 Specialty Diagnoses / Procedures Referred By Contac t Referred To Contact MOLECULAR & FUNCTIONAL IMAGING Diagnoses Neoplasm of lung Procedures NM PET/CT SKULL-THIGH INITIAL PET IMAGING CT ATTENUATION SKULL BASE MID-THIGH Abdi Israel MD [address] [place] [address] [place] [address] Molecular & Functional Imaging [address] [place] [address] Referral ID Status Reason Start Date Expiration Date V isits Requested Visits Authorized [id number] Closed Auto-Generate d Referral 02/22/2022 04/23/2022 1 1 Specialty Diagnoses / Procedures Referred By Contac t Referred To Contact CT IMAGING Diagnoses Neoplasm of lung Procedures CT CHEST W IVCON CAT SCAN OF CHEST CONTRAST Abdi Israel MD [address] [place] [address] [place] [address] Referral ID Status Reason Start Date Expiration Date V isits Requested Visits Authorized [id number] Closed Auto-Generate d Referral 05/16/2021 07/15/2021 1 1 Specialty Diagnoses / Procedures Referred By Contac t Referred To Contact CT IMAGING Diagnoses Malignant neoplasm of unspecified part of unspecified bronchus or lung (HCC) Procedures CT CHEST W IVCON DIAGNOSTIC COMPUTED TOMOGRAPHY THORAX W/CONTRAST Abdi Israel MD [address] [place] [address] [place] [address] Referral ID Status Reason Start Date Expiration Date V isits Requested Visits Authorized [id number] Closed Auto-Generate d Referral 12/02/2023 01/31/2024 1 1 Reason Comments Ear Problem 6 month ear check Care Teams (unrecognized sec tion and content) Team Status: Active Member Role Status Dates Adithya Kenyon MD Primary Care Provider Active Team Status: Inactive Member Role Status Dates Adithya Kenyon MD Primary Care Provide r, Referring Provider Active Start: September 29, 2023 End: September 29, 2023 Denver Rasmussen MD Attending Provider Active Start: September 29, 2023 End: September 29, 2023 Dried Fruit Washer Relationship Specialty Start Date End Date Adithya Kenyon MD [address] [place] [address] PCP - General Family Practice 02/25/18 Dried Fruit Washer Relationship Specialty Start Date End Date Adithya Kenyon MD [address] [place] [address] PCP - General Family Medicine 02/25/18 Dried Fruit Washer Relationship Specialty Start Date End Date Adithya Kenyon MD [address] [place] [facility] [place] [address] PCP - General Family Medicine 02/25/18 Dried Fruit Washer Relationship Specialty Start Date End Date Adithya Kenyon MD [address] [place] [facility] [place] [address] PCP - General Family Medicine 02/25/18 Dried Fruit Washer Relationship Specialty Start Date End Date Adithya Kenyon MD [address] [place] [facility] [place] [address] PCP - General Family Medicine 02/25/18 Dried Fruit Washer Relationship Specialty Start Date End Date Adithya Kenyon MD [address] [place] [facility] [place] [address] PCP - General Family Medicine 02/25/18 Dried Fruit Washer Relationship Specialty Start Date End Date Adithya Kenyon MD [address] [place] [facility] [place] [address] PCP - General Family Medicine 02/25/18 Dried Fruit Washer Relationship Specialty Start Date End Date Adithya Kenyon MD [address] [place] [facility] [place] [address] PCP - General Family Medicine 02/25/18 Dried Fruit Washer Relationship Specialty Start Date End Date Adithya Kenyon MD [address] [place] [facility] [place] [place] [address] PCP - General Family Medicine 02/25/18 Dried Fruit Washer Relationship Specialty Start Date End Date Adithya Kenyon MD PCP - General Family Medicine 02/25/18 Dried Fruit Washer Relationship Specialty Start Date End Date Adithya [...] May 14, 2023 End: May 17, 2023 Dried Fruit Washer Relationship Specialty Start Date End Date Adithya Kenyon MD PCP - General Family Medicine 02/25/18 Dried Fruit Washer Relationship Specialty Start Date End Date Adithya Kenyon MD PCP - General Family Medicine 02/25/18 Dried Fruit Washer Relationship Specialty Start Date End Date Adithya Kenyon MD PCP - General Family Medicine 02/25/18 Dried Fruit Washer Relationship Specialty Start Date End Date Adithya Kenyon MD PCP - General Family Medicine 02/25/18 Dried Fruit Washer Relationship Specialty Start Date End Date Adithya Kenyon MD PCP - General Family Medicine 02/25/18 Dried Fruit Washer Relationship Specialty Start Date End Date Adithya Kenyon MD PCP - General Family Medicine 02/25/18 Dried Fruit Washer Relationship Specialty Start Date End Date Adithya Kenyon MD PCP - [facility] 02/25/18 Team Status: Inactive Member Role Status Dates Adithya Kenyon MD Primary Care Provider Active Start: December 03, 2023 End: December 03, 2023 Denver Rasmussen MD Attending Provider Active Start: December 03, 2023 End: December 03, 2023 Dried Fruit Washer Relationship Specialty Start Date End Date Adithya Kenyon MD PCP - [facility] 02/25/18 Dried Fruit Washer Relationship Specialty Start Date End Date Adithya Kenyon MD PCP - [facility] 02/25/18 Team Status: Active Member Role Status Dates Adithya Kenyon MD Primary Care Provider Active Start: December 20, 2023 Rip Celestin DO Emergency Provider Active St art: December 20, 2023 Mg Vaughn MD Admit Provider, Attending Provider Active Start: December 20, 2023 Dried Fruit Washer Relationship Specialty Start Date End Date Adithya Kenyon MD PCP - [facility] 02/25/18 Team Status: Inactive Member Role Status [...] Care Provider Active Start: December 21, 2023 Rip Celestin DO Emergency Provider Active St art: December 21, 2023 Mg Vaughn MD Admit Provider Active Start: December Cassandra Andersen MD Other Provider Active Start: December 21, 2023 Denver Rasmussen MD Attending Nv peri, Other Provider Active Start: December 21, 2023 Dried Fruit Washer Relationship Specialty Start Date End Date Adithya Kenyon MD PCP - General Family Medicine 02/25/18 Dried Fruit Washer Relationship Specialty Start Date End Date Adithya Kenyon MD PCP - General Family Medicine 02/25/18 Dried Fruit Washer Relationship Specialty Start Date End Date Adithya Kenyon MD PCP - General Family Medicine 02/25/18 Dried Fruit Washer Relationship Specialty Start Date End Date Adithya Kenyon MD PCP - General Family Medicine 02/25/18 Dried Fruit Washer Relationship Specialty Start Date End Date Adithya Kenyon MD PCP - General Family Medicine 02/25/18 Dried Fruit Washer Relationship Specialty Start Date End Date Adithya Kenyon MD PCP - General Family Medicine 02/25/18 Team Status: Inactive Member Role Status Dates Adithya Kenyon MD Primary Care Provider Active Start: February 23, 2024 End: February 23, 2024 Denver Rasmussen MD Attending Provider Active Start: February 23, 2024 End: February 23, 2024 Team Status: Inactive Member Role Status Dates Adithya Kenyon MD Primary Care Provider Active Start: February 26, 2024 End: February 26, 2024 Denver Rasmussen MD Attending Provider Active Start: February 26, 2024 End: February 26, 2024 Dried Fruit [employer]her Relationship Specialty Start Date End Date Adithya Kenyon MD [address] [place] [id number] PCP - General Family Medicine 10/07/22 Dried Fruit Washer Relationship Specialty Start Date End Date Adithya Kenyon MD [address] [place] [id number] [phone] PCP - General Family Medicine 10/07/22 Continuous Active and Recently Administ ered Medications [...] BE BASED ON THE PRIMARY CLINICAL RECORDS. [email or web address] provides no warranty or guarantee of the accuracy or completeness of information in this document.
[2024-04-04] MEDS: LEVALBUTEROL HCL 1.25 MG/3 ML VIAL NEB IH (02:03)
[2024-04-04 02:11] LABS: Hematocrit 41.7 % (36.0-48.0); Hemoglobin 13.4 g/dL (12.0-16.0); Mean Corpuscular HGB Conc 32.1 g/dL (29.9-35.2); Mean Corpuscular Hemoglobin 28.4 pg (26.7-34.0); Mean Corpuscular Volume 88.3 fL (81.0-99.0); Mean Platelet Volume 9.6 fL (9.5-13.5); Platelet Count 193 10^3/uL (150-450); Red Blood Count 4.72 10^6/uL (4.20-5.40); Red Cell Distribution Width 12.7 % (11.0-15.0); White Blood Count 13.5 10^3/uL (4.0-11.0)
[2024-04-04 02:29] LABS: BUN Creatinine Ratio 17.2; Calcium 9.5 mg/dL (8.5-10.1); Carbon Dioxide 33.9 mmol/L (21.0-32.0); Chloride 96 mmol/L (98-107); Estimated GFR (African America >60 (>=60 mL/min/1.73m^2); Estimated GFR (Non-African Ame >60 (>=60 mL/min/1.73m^2); Glucose 110 mg/dL (74-106); Potassium 3.9 mmol/L (3.5-5.1); Sodium 137 mmol/L (136-145); Troponin I High Sensitivity 7.2 pg/mL (4.0-51.3)
[2024-04-04 02:30] LABS: Atypical Lymphocytes Abs Man 0.54; Basophils Abs Manual 0.13 10^3/uL (0.00-0.10); Segmented Neut Absolute Manual 11.61 10^3/uL (1.4-6.5)
[2024-04-04 02:30] LABS: Influenza Virus A Antigen Negative; Influenza Virus B Antigen Negative; Internal Control Within Normal Limits; SARS-CoV-2 Ag NEGATIVE (NEGATIVE)
[2024-04-04 02:31] LABS: Hypochromasia 3+
[2024-04-04] MEDS: METHYLPREDNISOLONE SOD SUCC PF 125 MG/2 ML VIAL IVP ×2 (02:32→09:33)
[2024-04-04] MEDS: CEFTRIAXONE 1,000 MG in 0.9 % SODIUM CHLORIDE 50 ML 100 MG IV (02:58)
[2024-04-04] MEDS: MORPHINE SULFATE 4 MG/ML VIAL IV (03:46)
[2024-04-04] MEDS: AZITHROMYCIN 500 MG in 0.9 % SODIUM CHLORIDE 250 ML 250 MG IV (03:48)
--- OUTSIDE RECORDS SUMMARY | 2024-04-04 04:11 | XMS_ITS | CCD ---
Author Organization [facility] CliniSyme Care Team Providers Care X Ray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 Name Role Phone Adithya Kenyon Unavailable Unavailable JAYE HOUGH Unavailable Unavailable ADITHYA KENYON Unavailable Unavailable ABDOH, MAMOUN Unavailable Unavailable Adithya Kenyon MD Primary Care Provider [phone] Adithya Kenyon MD Primary Care Provider [phone] Adithya Kenyon MD Primary Care Provider [phone] JOSE CONDE Admitting [...] HOY ., DR HAJI Primary Care Unavailable [place], DR JULES Naran[employer] Consulting Unavailable HOY ., [...] Unavailable ADITHYA KENYON M Primary Care Unavailable BREI KAUR Referring Unavailable MD Adithya Kenyon Primary Care Provider [phone] DO Rip Celestin Emergency Provider MD Mg Vaughn Admit Provider MD Mg Vaughn Attending Provider MD Adithya Kenyon Primary Care Provider [phone] Rip Celestin Emergency Provider [phone] MD Mg Vaughn Admit Provider [phone] MD Cassandra Andersen Attending Provider MD Denver [...] [phone] Rip Celestin DO Emergency Provider [phone] Mg Vaughn MD Admit Provider Cassandra Andersen MD Attending Provider [phone] Denver Rasmussen MD Other Provider Denver Rasmussen MD Attending Provider [phone] Adithya Kenyon MD Primary Care Provider [phone] levoFLOXacin; Translations: [LEVOFLOXACIN] Drug Allergy 03-02-2018 Unknown [facility] Other [place] Repository (2 sources) levoFLOXacin Drug Allergy [facility] Repository Medications Current Medications Medication Drug Class(es) Dates Sig (Normalized) Sig (Original) [id number] 200 actuat albuterol 0.09 mg/actuat metered dose [...] 8:28am February 23, 2024 2:42pm As directed [facility] not using at this time Start: 09-29-2023 End: 12-03-2023 Bilevel Positive Airway Pres sure (Bipap) unit Discontinued 0 .ROUTE September 28, 2023 11:00pm December 03, 2023 8:28am As directed [facility] budesonide 0.25 mg/ml inhalation suspension (20 sources) [...] extended release oral tablet (5 sources) Uncompetitive H-ljgpyw-P-aspartate Receptor Antagonist, Sigma-1 Agonist Start: 06-16-19 take [...] mg by mouth daily at bedtime. nystatin [id number] unt/ml oral suspension (10 sources) Polyene Antifungal Start: 05-17-19 take [id number] [IU] by mouth three times daily as needed Nystatin 100,000 unit/mL Suspension Active [id number] UNIT PO Three times daily as needed for White yeast in your mouth May 17, 2023 8:48am Nystatin 726700 units/mL 1 mL to each cheek Four [...] daily. docusate sodium 50 mg / sennosides, prison 8.6 mg oral tablet (20 sources) Start: 05-25-2018 End: 11-17-2023 take 2 tablets by mouth every twelve hours as needed senna-docusate (SENOKOT-S) 8.6-50 mg per tablet Take 2 tablets by mouth twice daily as needed. 100 tablet 1 05/25/2018 11/17/2023 Discontinued Comment on above: Take 2 tablets by mo [facility] twice daily as needed. 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; Translations: [LONG-TERM USE OF INHALED STEROIDS] Onset: 09-09-2022 Episodic Other aftercare (1 source) Other shelter (current) drug therapy; Translations: [OTH LONG-TERM CURRENT DRUG THERAPY] Onset: 09-09-2022 Episodic Other [...] By: Reji Byrd on 02-26-2024 Study report [facility] [address] [address] XRay Report Signed Patient: Cinthia Guerrero MR#: [id number] : 1960 Acct:[id number] Age/Sex: 63 / F ADM Date: 4 Loc: XD Room: Type: [facility] CLI Attending Dr: Denver Rasmussen MD [...] Wong Byrd M.D.02/26/2024 6:00 PM Dictation Location: [place] [address] Transcribed By: [facility] 02/26/24 1800 Dictated By: Wong Byrd DO 02/26/24 1755 Signed By: 02/26/24 1800 [facility] XR chest 2V*on 02-26-2024 XR chest 2V* [facility] [address] [address] XRay Report Signed Patient: Cinthia Guerrero MR#: [id number] : 1960 Acct:[id number] Age/Sex: 63 / F ADM Date: 02/26/24 Loc: XD Room: Type: [facility] CLI Attending Dr: Denver Rasmussen MD [...] Wong Byrd M.D.02/26/2024 6:00 PM Dictation Location: [place] [address] Transcribed By: [facility] 02/26/24 1800 Dictated By: Wong Byrd DO 02/26/24 1755 Signed By: 02/26/24 1800 Normal [facility] [place] 02-17-2024 CNPN Telephone (RADTSA) CINTHIA GUERRERO ([id number]) 1960 F Date Time Provider Department 02/17/24 [...] Dr. Rasmussen. Requested images be pushed to [facility]. Allergies As of Date: 02/17/2024 (No Known [...] Encounter Status:Closed by JULISA PRESSLEY on 02/17/24 [facility] CNOVon 01-29-2024 CNOV Office Visit (RADTSA ) CINTHIA GUERRERO ([id number]) 1960 F Date Time Provider Department 01/29/24 [...] COPD, who is diagnosed with Stage IA3, [id number], non-small cell lung cancer arising from a [...] continues on supplemental oxygen via nasal cannula [id number]-eex-wknnp at 2 L/min and continues on Pulmicort [...] * Hypermet (more content not included)... Normal [facility] CT CHEST W IVCONon 4 CT CHEST W IVCON * * *Final Report* * * DATE OF EXAM: Jan 18 2024 11:33AM [facility] 0539 - CT CHEST W IVCON / [...] any questions regarding this interpretation, please call [phone]. If you are unable to reach us at the number above, please feel free to contact [facility] eRadiology at [phone]. [id number] Normal [facility] CT Chest W contrast Angelita IMPRESSION: [...] any questions regarding this interpretation, please call [phone]. If you are unable to reach us at the number above, please feel free to contact [facility] eRadiology at [phone]. DIVISION OF RADIOLOGY * * *Final Report* * * DATE OF EXAM: Jan 18 2024 11:33AM [facility] 0539 - CT CHEST W IVCON / [...] No additional findings. DIVISION OF RADIOLOGY Provider, [facility] - 01/18/2024 * * *Final Report* * * DATE OF EXAM: Jan 18 2024 11:33AM [facility] 0539 - CT CHEST W IVCON / [...] any questions regarding this interpretation, please call [phone]. If you are unable to reach us at the number above, please feel free to contact [facility] eRadiology at [phone]. [facility] Radiology Study observation (narrative) Jose Cruz santiago [facility] CT Chest W contrast IVOrdere d By: Cccliff Provider on 01-18-2024 [facility] [place] [facility] CINTHIA GUERRERO ([id number]) 1960 F Date Time Provider Department 12/24/23 ABDI ISRAEL During your visit today, we recorded the following information about you: Rodney Rinaldi 12/24/2023 1:59 PM Signed Cinthia Guerrero --Omaira was dc'd from [facility]-She hasn't called in to reschedule her appt's. [...] Fully Assessed Reason for Visit: Appointment Confirmation [[id number]] Prescriptions as of 12/28/2023 - predniSONE 10 [...] Status:Closed by RODNEY RINALDI on 12/28/23 Normal [facility] Basic Metabolic Panelon 12-12 Creatinine Clr Calc Pharmacy 90.01 Normal [facility] Comment on above: Result Comment: PERF ORMED BY: [place] [address] PATHOLOGIST PLASTICS SCIENTIST JASMEET LIN M.D. Performed By: #### C MP, CBC, HS TROP, TSH3 wRFLX #### [address] GFR/1.73 sq M.predicted MDRD (S/P/Bld) [Vol rate/Area] mL/min/{1.73_m2} Normal [facility] Comment on above: Performed By: #### C MP, CBC, HS TROP, TSH3 wRFLX #### [facility] [address] [place] [id number] [place] Calcium [Mass/volume] in Ser um or PlasmaOrdered By: Cassandra Andersen on 12-23-2023 Calcium [Mass/Vol] 9.4 mg/dL Normal 8.6-10.3 [facility] Comment on above: Performed By: #### C MP, CBC, HS TROP, TSH3 wRFLX #### [facility] [address] [place] [id number] [place] Calcium [Mass/Vol] Calcium [Mass/volume ] in Serum or Plasma 8.6-10.3 [facility] Carbon dioxide, total [Moles /volume] in Serum or PlasmaOrdered By: Cassandra Andersen on 12-23-2023 CO2 [Moles/Vol] 44.4 mmol/L High 21.0-31.[address] [facility] Comment on above: Performed By: #### C MP, CBC, HS TROP, TSH3 wRFLX #### [facility] [address] [place] [address] [place] CO2 [Moles/Vol] Carbon dioxide, tota l [Moles/volume] in Serum or Plasma High 21.0-31.0 [facility] Chloride [Moles/volume] in S karmen or PlasmaOrdered By: Cassandra Andersen on 12-23-2023 Chloride [Moles/Vol] 92 mmol/L Low 98-107 [facility] Comment on above: Performed By: #### C MP, CBC, HS TROP, TSH3 wRFLX #### [facility] [address] [place] [phone] [place] Chloride [Moles/Vol] Chloride [Moles/volume] in Serum or Plasma Low 98-107 [facility] Creatinine [Mass/volume] in Serum or PlasmaOrdered By: Cassandra Andersen on 12-23-2023 Creatinine [Mass/Vol] 0.40 mg/dL Low 0.60-1.20 [facility] Comment on above: Performed By: #### C MP, CBC, HS TROP, TSH3 wRFLX #### [facility] [address] [place] [phone] [place] Creatinine [Mass/Vol] Creatinine [Mass/volume] in Serum or Plasma Low 0.60-1.20 [facility] Glucose [Mass/volume] in Ser um or PlasmaOrdered By: Cassandra Andersen on 12-23-2023 Glucose [Mass/Vol] 80 mg/dL Normal 70-100 [facility] Comment on above: ADA recommended refe rence rangeRandom Glucose Reference Range is dependent on time and content of last meal. Glucose of more than 200 mg/dL in a nonstressed, ambulatory subject supports the diagnosis of Diabetes Mellitus. Result Comment: [place] Glucose Reference Range is dependent on time and content of last meal. Glucose of more than 200 mg/dL in a nonstressed, ambulatory subject supports the diagnosis of Diabetes Mellitus. ADA recommended reference range Performed By: #### C MP, CBC, HS TROP, TSH3 wRFLX #### [facility] [address] [place] [id number] [place] Glucose [Mass/Vol] Glucose [Mass/volume ] in Serum or Plasma 70-100 [facility] Comment on above: ADA recommended refe rence rangeRandom Glucose Reference Range is dependent on time and content of last meal. Glucose of more than 200 mg/dL in a nonstressed, ambulatory subject supports the diagnosis of Diabetes Mellitus. No Panel InformationOrdered By: Cassandra Andersen on 12-23-2023 Estimated GFR (CKD-EPI) > 60.0 mL/Min [facility] Creatinine Clearance (Chem 90.01 [facility] Potassium [Moles/volume] in Serum or PlasmaOrdered By: Cassandra Andersen on 12-23-2023 Potassium [Moles/Vol] 4.5 mmol/L Normal 3.5-5.1 [facility] Comment on above: Performed By: #### C MP, CBC, HS TROP, TSH3 wRFLX #### [facility] [address] [place] [id number] [place] Potassium [Moles/Vol] Potassium [Moles/volume] in Serum or Plasma 3.5-5.1 [facility] Serum or plasma anion gap de terminationOrdered By: Cassandra Andersen on 12-23-2023 Anion gap [Moles/Vol] 8.1 mmol/L Normal 6.0-15.0 [facility] Comment on above: Performed By: #### C MP, CBC, HS TROP, TSH3 wRFLX #### [place] [address] [place] Anion gap [Moles/Vol] Serum or plasma an ion gap determination 6.0-15.0 [facility] Sodium [Moles/volume] in Ser um or PlasmaOrdered By: Cassandra Andersen on 12-23-2023 Sodium [Moles/Vol] 140 mmol/L Normal 136-145 [facility] Comment on above: Performed By: #### C MP, CBC, HS TROP, TSH3 wRFLX #### [address] Sodium [Moles/Vol] Sodium [Moles/volume ] in Serum or Plasma 136-145 [facility] Urea nitrogen [Mass/volume] in Serum or PlasmaOrdered By: Cassandra Andersen on 12-23-2023 Urea nitrogen [Mass/Vol] 12 mg/dL Normal 11-04 [facility] Comment on above: Performed By: #### C MP, CBC, HS TROP, TSH3 wRFLX #### [address] Urea nitrogen [Mass/Vol] Urea nitrogen [Mass/volume] in Serum or Plasma - [facility] Aerobic Cultureon 12-22-2023 Aerobic Culture ORGANISM: Milagros albicans (O:CANALB) Quantity of Growth Light Growth Gram Stain Result 2+ White Blood Cells 2+ Epithelial Cells 3+ Gram Positive Coccobacilli 2+ Gram Positive Cocci in Pairs PERFORMED BY: [place] [address] PATHOLOGIST PLASTICS SCIENTIST JASMEET LIN M.D. Normal [facility] Comment on above: Performed By: #### C MP, CBC, HS TROP, TSH3 wRFLX #### [address] [place] [address] [place] Bacteria identified Aer cx N om (Unsp spec)Ordered By: Denver Rasmussen on 12-22-2023 Aerobic Culture Abnormal [facility] Gram Stainon 12-22-2023 Microscopic observation Gram stain Nom (Unsp spec) Gram Stain Result 2+ White Blood Cells 2+ Epithelial Cells 3+ Gram Positive Coccobacilli 2+ Gram Positive Cocci in Pairs PERFORMED BY: [place] [address] PATHOLOGIST PLASTICS SCIENTIST JASMEET LIN M.D. Normal [facility] Comment on above: Performed By: #### C MP, CBC, HS TROP, TSH3 wRFLX #### [facility] [address] [place] [address] Gram stain for investigation of transfusion reactionOrdered By: Denver Rasmussen on 12-22-2023 Microscopic observation Gram stain Nom (Unsp spec) Yeast Like Organism Abnormal [facility] Gram stain microscopyOrdered By: Denver Rasmussen on 12-22-2023 Microscopic observation Gram stain Nom (Unsp spec) Gram stain microscopy [facility] Wound methicillin resistant Staphylococcus aureus (MRSA) cultureOrdered By: Denver Rasmussen on 12-22-2023 MRSA isol Org specific cx Ql (Unsp spec) Wound methicillin resistant Staphylococcus aureus (MRSA) culture [facility] Alanine aminotransferase [En zymatic activity/volume] in Serum or PlasmaOrdered By: Mg Vaughn on 12-21-2023 ALT [Catalytic activity/Vol] 25 U/L Normal [facility] Comment on above: Performed By: #### C BC, CMP #### [facility] [address] [place] [address] ALT [Catalytic activity/Vol] Alanine aminotransferase [Enzymatic activity/volume] in Serum or Plasma [facility] Albumin [Mass/volume] in Ser um or Plasma by Bromocresol green (BCG) dye binding methoOrdered By: Mg Vaughn on 12-21-2023 Albumin BCG dye [Mass/Vol] 3.9 g/dL 3.5-5.7 [facility] Albumin BCG dye [Mass/Vol] Albumin [Mass/volume] in Serum or Plasma by Bromocresol green (BCG) dye binding metho 3.5-5.7 [facility] Alkaline phosphatase [Enzyma tic activity/volume] in Serum or PlasmaOrdered By: Mg Vaughn on 12-21-2023 ALP [Catalytic activity/Vol] 73 U/L Normal 34-104 [facility] Comment on above: Performed By: #### C BC, CMP #### [address] ALP [Catalytic activity/Vol] Alkaline phosphatase [Enzymatic activity/volume] in Serum or Plasma 34-104 [facility] Aspartate aminotransferase [ Enzymatic activity/volume] in Serum or PlasmaOrdered By: Mg Vaughn on 12-21-2023 AST [Catalytic activity/Vol] 21 U/L Normal 39 [facility] Comment on above: Performed By: #### C BC, CMP #### [address] AST [Catalytic activity/Vol] Aspartate aminotransferase [Enzymatic activity/volume] in Serum or Plasma 13 [facility] Automated basophil %Ordered By: Mg Vaughn on 12-21-2023 Basophils/100 WBC (Bld) 0.5 % Normal . [facility] Comment on above: Performed By: #### C BC, CMP #### [address] Automated basophil countOrde red By: Mg Vaughn on 12-21-2023 Basophils (Bld) [#/Vol] 0.0 10*3/uL Normal 0.0-0.2 [facility] Comment on above: Result Comment: PERF ORMED BY: [place] [address] PATHOLOGIST PLASTICS SCIENTIST JASMEET LIN M.D. Performed By: #### C BC, CMP #### [address] Automated blood monocyte cou ntOrdered By: Mg Vaughn on 12-21-2023 Monocytes (Bld) [#/Vol] 0.8 10*3/uL Normal 0.0-0.8 [facility] Comment on above: Performed By: #### C BC, CMP #### [facility] [address] [place] [address] Automated eosinophil %Ordere d By: Mg Vaughn on 12-21-2023 Eosinophils/100 WBC (Bld) 2.0 % Normal . [facility] Comment on above: Performed By: #### C BC, CMP #### [facility] [address] [place] [address] Automated eosinophil countOr dered By: Mg Vaughn on 12-21-2023 Eosinophils (Bld) [#/Vol] 0.1 10*3/uL Normal 0.0-0.45 [facility] Comment on above: Performed By: #### C BC, CMP #### [address] Automated monocyte %Ordered By: Mg Vaughn on 12-21-2023 Monocytes/100 WBC (Bld) 10.7 % Normal . [facility] Comment on above: Performed By: #### C BC, CMP #### [address] Automated neutrophil %Ordere d By: Mg Vaughn on 12-21-2023 Neutrophils/100 WBC (Bld) 58.3 % Normal . [facility] Comment on above: Performed By: #### C BC, CMP #### [facility] [address] [place] [address] Basophils Auto (Bld) [#/Vol] Ordered By: Mg Vaughn on 12-21-2023 Basophils (Bld) [#/Vol] Automated basoph il count 0.0-0.2 [facility] Basophils/100 WBC Auto (Bld) Ordered By: Mg Vaughn on 12-21-2023 Basophils/100 WBC (Bld) Automated basophil % . [facility] Bilirubin.total [Mass/volume ] in Serum or PlasmaOrdered By: Mg Vaughn on 12-21-2023 Bilirubin [Mass/Vol] 0.4 mg/dL Normal 0.3-1.0 [facility] Comment on above: Performed By: #### C BC, CMP #### [address] Bilirubin [Mass/Vol] Bilirubin.total [Mass/volume] in Serum or Plasma 0.3-1.0 [facility] BioFire Not Detectedon 12-20 BioFire Not Detected Not detected Normal Not Detecte [facility] Comment on above: Result Comment: This is a duplicate RP2.1 COVID (PCR) result to be used for statistical tracking purpose only. PERFORMED BY: [place] [address] PATHOLOGIST PLASTICS SCIENTIST JASMEET LIN M.D. Performed By: #### R TERRI PANEL UPP., BIOFIRECOVNOTDE #### [address] COVID-19 Detected/Not Detect edOrdered By: Mg Vaughn on 12-21-2023 SARS-CoV-2 (COVID-19) RNA KRUNAL+non-probe Ql (Nph) Not detected Not Detecte [facility] Comment on above: This is a duplicate RP2.1 COVID (PCR) result to be used for statistical tracking purpose only. Complete Blood Count Auto Di ffon 12-21-2023 Mean Corpuscular HGB Conc 32.3 g/dL Normal 32.0-35.0 [facility] Comment on above: Performed By: #### C BC, CMP #### [address] NRBC% 0.1 /100{WBC} Normal 0-0.5 [facility] Comment on above: Performed By: #### C BC, CMP #### [address] Comprehensive Metabolic Pane shelby 12-21-2023 Albumin [Mass/Vol] 3.9 g/dL Normal 3.5-5.7 [facility] Comment on above: Performed By: #### C BC, CMP #### [address] Anion gap [Moles/Vol] Not performed Normal 6.0-15.0 [facility] Comment on above: Performed By: #### C BC, CMP #### [place] [address] [place] Calcium [Mass/Vol] 9.6 mg/dL Normal 8.6-10.3 [facility] Comment on above: Performed By: #### C BC, CMP #### [facility] [address] [place] [address] [place] Chloride [Moles/Vol] 87 mmol/L Low 98-107 [facility] Comment on above: Performed By: #### C BC, CMP #### [facility] [address] [place] [address] [place] CO2 [Moles/Vol] mmol/L High 21.0-31.0 [facility] Comment on above: Performed By: #### C BC, CMP #### [place] [address] [place] Creatinine [Mass/Vol] 0.42 mg/dL Low 0.60-1.20 [facility] Comment on above: Performed By: #### C BC, CMP #### [place] [address] [place] Creatinine Clr Calc Pharmacy 85.29 Normal [facility] Comment on above: Result Comment: PERF ORMED BY: [place] [address] PATHOLOGIST PLASTICS SCIENTIST JASMEET LIN M.D. Performed By: #### C BC, CMP #### [place] [address] [place] GFR/1.73 sq M.predicted MDRD (S/P/Bld) [Vol rate/Area] mL/min/{1.73_m2} Normal [facility] Comment on above: Performed By: #### C BC, CMP #### [address] Glucose [Mass/Vol] 81 mg/dL Normal 70-100 [facility] Comment on above: Result Comment: [place] Glucose Reference Range is dependent on time and content of last meal. Glucose of more than 200 mg/dL in a nonstressed, ambulatory subject supports the diagnosis of Diabetes Mellitus. ADA recommended reference range Performed By: #### C BC, CMP #### [facility] [address] Potassium [Moles/Vol] 3.9 mmol/L Normal 3.5-5.1 [facility] Comment on above: Performed By: #### C BC, CMP #### [facility] [address] Sodium [Moles/Vol] 139 mmol/L Normal 136-145 [facility] Comment on above: Performed By: #### C BC, CMP #### [facility] [address] Urea nitrogen [Mass/Vol] 14 mg/dL Normal 7-25 [facility] Comment on above: Performed By: #### C BC, CMP #### [address] Eosinophils Auto (Bld) [#/Vo l]Ordered By: Mg Vaughn on 12-21-2023 Eosinophils (Bld) [#/Vol] Automated eosinophil count 0.0-0.45 [facility] Eosinophils/100 WBC Auto (Bl d)Ordered By: Mg Vaughn on 12-21-2023 Eosinophils/100 WBC (Bld) Automated eosinophil % . [facility] Erythrocyte distribution wid th Auto (RBC) [Ratio]Ordered By: Mg Vaughn on 12-21-2023 Erythrocyte distribution width (RBC) [Ratio] Erythrocyte distribution width [Ratio] by Automated count 11.9-15.3 [facility] Erythrocyte distribution wid th [Ratio] by Automated countOrdered By: Mg Vaughn on 12-21-2023 Erythrocyte distribution width (RBC) [Ratio] 14.3 % Normal 11.9-15.3 [facility] Comment on above: Performed By: #### C BC, CMP #### [address] Erythrocytes [#/volume] in B lood by Automated countOrdered By: Mg Vaughn on 12-21-2023 RBC (Bld) [#/Vol] 5.25 10*6/uL High 3.60-5.00 [facility] Comment on above: Performed By: #### C ELIF, CMP #### [address] Globulin Calc (S) [Mass/Vol] Ordered By: Mg Vaughn on 12-21-2023 Globulin (S) [Mass/Vol] Serum globulin measurement by calculation (mass/volume) [facility] Hematocrit Auto (Bld) [Volum e fraction]Ordered By: Mg Vaughn on 12-21-2023 Hematocrit (Bld) [Volume fraction] Hematocrit [Volume Fraction] of Blood by Automated count 34.0-46.4 [facility] Hematocrit [Volume Fraction] of Blood by Automated countOrdered By: Mg Vaughn on 12-21-2023 Hematocrit (Bld) [Volume fraction] 43.9 % Normal 34.0-46.4 [facility] Comment on above: Performed By: #### C ELIF, CMP #### [address] Hemoglobin [Mass/volume] in BloodOrdered By: Mg Vaughn on 12-21-2023 Hemoglobin (Bld) [Mass/Vol] 14.2 g/dL Normal 11.8-15.4 [facility] Comment on above: Performed By: #### C ELIF, CMP #### [address] Hemoglobin (Bld) [Mass/Vol] Hemoglobin [Mass/volume] in Blood 11.8-15.4 [facility] Leukocytes [#/volume] correc sommer for nucleated erythrocytes in Blood by Automated counOrdered By: Mg Vaughn on 12-21-2023 WBC corrected for nucl RBC Auto (Bld) [#/Vol] 7.0 10*3/uL 3.8-11.6 [facility] WBC corrected for nucl RBC Auto (Bld) [#/Vol] Leukocytes [#/volume] corrected for nucleated erythrocytes in Blood by Automated coun 3.8-11.6 [facility] Leukocytes [#/volume] in Blo od by Automated countOrdered By: Mg Vaughn on 12-21-2023 WBC (Bld) [#/Vol] 7.0 10*3/uL Normal 3.8-11.6 [facility] Comment on above: Performed By: #### C BC, CMP #### [address] Lymphocytes Auto (Bld) [#/Vo l]Ordered By: Mg Vaughn on 12-21-2023 Lymphocytes (Bld) [#/Vol] Lymphocytes [#/volume] in Blood by Automated count 1.00-4.8 [facility] Lymphocytes [#/volume] in Bl ood by Automated countOrdered By: Mg Vaughn on 12-21-2023 Lymphocytes (Bld) [#/Vol] 2.0 10*3/uL Normal 1.00-4.8 [facility] Comment on above: Performed By: #### C BC, CMP #### [address] Lymphocytes/100 WBC Auto (Bl d)Ordered By: Mg Vaughn on 12-21-2023 Lymphocytes/100 WBC (Bld) Lymphocytes/100 leukocytes in Blood by Automated count . [facility] Lymphocytes/100 leukocytes i n Blood by Automated countOrdered By: Mg Vaughn on 12-21-2023 Lymphocytes/100 WBC (Bld) 28.5 % Normal . [facility] Comment on above: Performed By: #### C BC, CMP #### [address] MCH Auto (RBC) [Entitic mass ]Ordered By: Mg Vaughn on 12-21-2023 MCH (RBC) [Entitic mass] MCH [Entitic mass] by Automated count 24.7-34.3 [facility] MCH [Entitic mass] by Automa sommer countOrdered By: Mg Vaughn on 12-21-2023 MCH (RBC) [Entitic mass] 27.1 pg Normal 24.7-34.3 [facility] Comment on above: Performed By: #### C BC, CMP #### [address] MCHC Auto (RBC) [Mass/Vol]Or dered By: Mg Vaughn on 12-21-2023 MCHC (RBC) [Mass/Vol] 32.3 g/dL 32.0-35.0 [facility] MCHC (RBC) [Mass/Vol] MCHC [Mass/volume] by Automated count 32.0-35.0 [facility] MCV Auto (RBC) [Entitic vol] Ordered By: Mg Vaughn on 12-21-2023 MCV (RBC) [Entitic vol] MCV [Entitic vol ume] by Automated count 80-100 [facility] MCV [Entitic volume] by Auto mated countOrdered By: Mg Vaughn on 12-21-2023 MCV (RBC) [Entitic vol] 83.8 fL Normal 80-100 [facility] Comment on above: Performed By: #### C BC, CMP #### [facility] [address] MRSA Cultureon 12-21-2023 MRSA Culture MRSA Culture Results No MRSA Isolated 2 Days Rare growth of normal respiratory nava. PERFORMED BY: [address] [place] [address] PATHOLOGIST PLASTICS SCIENTIST JASMEET LIN M.D. Normal [facility] Comment on above: Performed By: #### C MP, CBC, HS TROP, TSH3 wRFLX #### [facility] [address] [place] [address] Monocytes Auto (Bld) [#/Vol] Ordered By: Mg Vaughn on 12-21-2023 Monocytes (Bld) [#/Vol] Automated blood monocyte count 0.0-0.8 [facility] Monocytes/100 WBC Auto (Bld) Ordered By: Mg Vaughn on 12-21-2023 Monocytes/100 WBC (Bld) Automated monocyte % . [facility] Neutrophils Auto (Bld) [#/Vo l]Ordered By: Mg Vaughn on 12-21-2023 Neutrophils (Bld) [#/Vol] Neutrophils [#/volume] in Blood by Automated count 1.8-7.7 [facility] Neutrophils [#/volume] in Bl ood by Automated countOrdered By: Mg Vaughn on 12-21-2023 Neutrophils (Bld) [#/Vol] 4.1 10*3/uL Normal 1.8-7.7 [facility] Comment on above: Performed By: #### C BC, CMP #### [facility] [address] [place] [address] Neutrophils/100 WBC Auto (Bl d)Ordered By: Mg Vaughn on 12-21-2023 Neutrophils/100 WBC (Bld) Automated neutrophil % . [facility] Nucleated erythrocytes [Pres ence] in Blood by Automated countOrdered By: Mg Vaughn on 12-21-2023 Nucleated RBC Auto Ql (Bld) 0.1 /100{WBC} 0-0.5 [facility] Nucleated RBC Auto Ql (Bld) Nucleated erythrocytes [Presence] in Blood by Automated count 0-0.5 [facility] Platelet mean volume Auto (B ld) [Entitic vol]Ordered By: Mg Vaughn on 12-21-2023 Platelet mean volume (Bld) [Entitic vol] Platelet mean volume [Entitic volume] in Blood by Automated count 6.3-10.7 [facility] Platelet mean volume [Entiti c volume] in Blood by Automated countOrdered By: Mg Vaughn on 12-21-2023 Platelet mean volume (Bld) [Entitic vol] 7.2 fL Normal 6.3-10.7 [facility] Comment on above: Performed By: #### C BC, CMP #### [facility] [address] [place] [address] Platelets Auto (Bld) [#/Vol] Ordered By: Mg Vaughn on 12-21-2023 Platelets (Bld) [#/Vol] Platelets [#/vol ume] in Blood by Automated count 150-450 [facility] Platelets [#/volume] in Bloo d by Automated countOrdered By: Mg Vaughn on 12-21-2023 Platelets (Bld) [#/Vol] 334 10*3/uL Normal 150-450 [facility] Comment on above: Performed By: #### C BC, CMP #### [address] [place] [address] [place] Protein [Mass/volume] in Ser um or PlasmaOrdered By: Mg Vaughn on 12-21-2023 Protein [Mass/Vol] 7.1 g/dL Normal 6.4-8.9 [facility] Comment on above: Performed By: #### C BC, CMP #### [facility] [address] [place] [address] [place] Protein [Mass/Vol] Protein [Mass/volume ] in Serum or Plasma 6.4-8.9 [facility] RBC Auto (Bld) [#/Vol]Ordere d By: Mg Vaughn on 12-21-2023 RBC (Bld) [#/Vol] Erythrocytes [#/volume] in Blood by Automated count High 3.60-5.00 [facility] Respiratory (Upper) Panel, P CRon 12-21-2023 [...] Influenza A H3 Blank Space PERFORMED BY: [place] [address] PATHOLOGIST PLASTICS SCIENTIST JASMEET LIN M.D. Normal [facility] Comment on above: Performed By: #### R TERRI PANEL UPP., BIOFIRECOVNOTDE #### [address] Respiratory pathogens DNA an d RNA panel - Nasopharynx by KRUNAL with non-probe detectionOrdered By: Mg Vaughn on 12-21-2023 Respiratory pathogens DNA and RNA panel KRUNAL+non-probe (Nph) Respiratory pathogens DNA and RNA panel - Nasopharynx by KRUNAL with non-probe detection [facility] Respiratory pathogens DNA and RNA panel KRUNAL+non-probe (Nph) [facility] Serum globulin measurement b y calculation (mass/volume)Ordered By: Mg Vaughn on 12-21-2023 Globulin (S) [Mass/Vol] 3.2 g/dL Normal [facility] Comment on above: Performed By: #### C BC, CMP #### [address] Serum or plasma albumin/glob ulin mass ratioOrdered By: Mg Vaughn on 12-21-2023 Albumin/Globulin [Mass ratio] 1.2 {ratio} Normal [facility] Comment on above: Performed By: #### C BC, CMP #### [place] [address] [place] Albumin/Globulin [Mass ratio] Serum or plasma albumin/globulin mass ratio [facility] WBC Auto (Bld) [#/Vol]Ordere d By: Mg Vaughn on 12-21-2023 WBC (Bld) [#/Vol] Leukocytes [#/volume ] in Blood by Automated count 3.8-11.6 [facility] Wound methicillin resistant Staphylococcus aureus (MRSA) cultureOrdered By: Denver Rasmussen on 12-21-2023 MRSA isol Org specific cx Ql (Unsp spec) [facility] XR chest 1V portableon 12-20 XR chest 1V portable [facility] [address] [place] [address] [place] [address] XRay Report Signed Patient: Cinthia Guerrero MR#: [id number] : 1960 Acct:[id number] Age/Sex: 63 / F ADM Date: 12/20/23 Loc: Room: [address] [place] [address] Type: ADM INOo Attending Dr: Cassandra Andersen [...] Jeanette Carlin M.D.12/21/2023 7:51 AM Dictation Location: [place] [address] Transcribed By: [facility] 12/21/23 0751 Dictated By: Jeanette Carlin MD 12/21/23 0748 Signed By: 12/21/23 0751 Normal [facility] Alanine aminotransferase [En zymatic activity/volume] in Serum or PlasmaOrdered By: Rip Celestin on 12-20-2023 ALT [Catalytic activity/Vol] 28 U/L Normal 7-52 [facility] Comment on above: Performed By: #### C MP, CBC, HS TROP, TSH3 wRFLX #### [facility] [address] Albumin [Mass/volume] in Ser um or Plasma by Bromocresol green (BCG) dye binding methoOrdered By: Rip Celestin on 12-20-2023 Albumin BCG dye [Mass/Vol] 4.2 g/dL 3.5-5.7 [facility] Alkaline phosphatase [Enzyma tic activity/volume] in Serum or PlasmaOrdered By: Rip Celestin on 12-20-2023 ALP [Catalytic activity/Vol] 77 U/L Normal 34-104 [facility] Comment on above: Performed By: #### C MP, CBC, HS TROP, TSH3 wRFLX #### [address] Aspartate aminotransferase [ Enzymatic activity/volume] in Serum or PlasmaOrdered By: Rip Celestin on 12-20-2023 AST [Catalytic activity/Vol] 20 U/L Normal 13-39 [facility] Comment on above: Performed By: #### C MP, CBC, HS TROP, TSH3 wRFLX #### [address] Automated basophil %Ordered By: Rip Celestin on 12-20-2023 Basophils/100 WBC (Bld) 0.3 % Normal . [facility] Comment on above: Performed By: #### C MP, CBC, HS TROP, TSH3 wRFLX #### [address] Automated basophil countOrde red By: Rip Celestin on 12-20-2023 Basophils (Bld) [#/Vol] 0.0 10*3/uL Normal 0.0-0.2 [facility] Comment on above: Result Comment: PERF ORMED BY: [place] [address] PATHOLOGIST PLASTICS SCIENTIST JASMEET LIN M.D. Performed By: #### C MP, CBC, HS TROP, TSH3 wRFLX #### [address] Automated blood monocyte cou ntOrdered By: Rip Celestin on 12-20-2023 Monocytes (Bld) [#/Vol] 0.5 10*3/uL Normal 0.0-0.8 [facility] Comment on above: Performed By: #### C MP, CBC, HS TROP, TSH3 wRFLX #### [address] Automated eosinophil %Ordere d By: Rip Celestin on 12-20-2023 Eosinophils/100 WBC (Bld) 0.1 % Normal . [facility] Comment on above: Performed By: #### C MP, CBC, HS TROP, TSH3 wRFLX #### [facility] [address] [place] [address] Automated eosinophil countOr dered By: Rip Celestin on 12-20-2023 Eosinophils (Bld) [#/Vol] 0.0 10*3/uL Normal 0.0-0.45 [facility] Comment on above: Performed By: #### C MP, CBC, HS TROP, TSH3 wRFLX #### [address] Automated monocyte %Ordered By: Rip Celestin on 12-20-2023 Monocytes/100 WBC (Bld) 5.9 % Normal . [facility] Comment on above: Performed By: #### C MP, CBC, HS TROP, TSH3 wRFLX #### [address] Automated neutrophil %Ordere d By: Rip Celestin on 12-20-2023 Neutrophils/100 WBC (Bld) 83.9 % Normal . [facility] Comment on above: Performed By: #### C MP, CBC, HS TROP, TSH3 wRFLX #### [address] BNP ser/plasOrdered By: [place] Celestin on 12-20-2023 Natriuretic peptide B (Bld) [Mass/Vol] 44.0 pg/mL Normal 5-100 [facility] Comment on above: Result Comment: PERF ORMED BY: [place] [address] PATHOLOGIST PLASTICS SCIENTIST JASMEET LIN M.D. Performed By: #### C MP, CBC, HS TROP, TSH3 wRFLX #### [address] Bilirubin.total [Mass/volume ] in Serum or PlasmaOrdered By: Rip Celestin on 12-20-2023 Bilirubin [Mass/Vol] 0.3 mg/dL Normal 0.3-1.0 [facility] Comment on above: Performed By: #### C MP, CBC, HS TROP, TSH3 wRFLX #### [facility] [address] Calcium [Mass/volume] in Ser um or PlasmaOrdered By: Rip Skydana on 12-20-2023 Calcium [Mass/Vol] 9.8 mg/dL Normal 8.6-10.3 [facility] Comment on above: Performed By: #### C MP, CBC, HS TROP, TSH3 wRFLX #### [address] Carbon dioxide, total [Moles /volume] in Serum or PlasmaOrdered By: Rip Ant on 12-20-2023 CO2 [Moles/Vol] mmol/L High 21.0-31.0 [facility] Comment on above: Critical valueresult calledat 2101 on 12/20/23 Result Comment: Crit ical value result called at 2101 on 12/20/23 Performed By: #### C MP, CBC, HS TROP, TSH3 wRFLX #### [address] Chloride [Moles/volume] in S karmen or PlasmaOrdered By: Rip Ant on 12-20-2023 Chloride [Moles/Vol] 86 mmol/L Low 98-107 [facility] Comment on above: Performed By: #### C MP, CBC, HS TROP, TSH3 wRFLX #### [address] Complete Blood Count Auto Di ffon 12-20-2023 Mean Corpuscular HGB Conc 32.6 g/dL Normal 32.0-35.0 [facility] Comment on above: Performed By: #### C MP, CBC, HS TROP, TSH3 wRFLX #### [place] [address] [place] Monocytes/100 WBC (Bld) 16.32 % Normal 0.00-20.00 [facility] Comment on above: Performed By: #### C MP, CBC, HS TROP, TSH3 wRFLX #### [address] NRBC% 0.1 /100{WBC} Normal 0-0.5 [facility] Comment on above: Performed By: #### C MP, CBC, HS TROP, TSH3 wRFLX #### [address] Comprehensive Metabolic Pane shelby 12-20-2023 Albumin [Mass/Vol] 4.2 g/dL Normal 3.5-5.7 [facility] Comment on above: Performed By: #### C MP, CBC, HS TROP, TSH3 wRFLX #### [address] Anion gap [Moles/Vol] Not performed Normal 6.0-15.0 [facility] Comment on above: Performed By: #### C MP, CBC, HS TROP, TSH3 wRFLX #### [address] Creatinine Clr Calc Pharmacy 94.74 Normal [facility] Comment on above: Result Comment: PERF ORMED BY: [place] [address] PATHOLOGIST PLASTICS SCIENTIST JASMEET LIN M.D. Performed By: #### C MP, CBC, HS TROP, TSH3 wRFLX #### [address] GFR/1.73 sq M.predicted MDRD (S/P/Bld) [Vol rate/Area] mL/min/{1.73_m2} Normal [facility] Comment on above: Performed By: #### C MP, CBC, HS TROP, TSH3 wRFLX #### [address] Creatine kinase [Enzymatic a ctivity/volume] in Serum or PlasmaOrdered By: Rip Celestin on 12-20-2023 CK [Catalytic activity/Vol] 24 U/L Low 30-223 [facility] Comment on above: Performed By: #### C MP, CBC, HS TROP, TSH3 wRFLX #### [facility] [address] [place] [id number] [place] CK [Catalytic activity/Vol] Creatine kinase [Enzymatic activity/volume] in Serum or Plasma Low 30-223 [facility] Creatinine [Mass/volume] in Serum or PlasmaOrdered By: Rip Celestin on 12-20-2023 Creatinine [Mass/Vol] 0.41 mg/dL Low 0.60-1.20 [facility] Comment on above: Performed By: #### C MP, CBC, HS TROP, TSH3 wRFLX #### [facility] [address] ECG 12 lead ECGon 12-20-2023 ECG 12 lead ECG [facility] [place] [address] [place] [address] Electrocardiograph Report Signed Patient: Cinthia Guerrero MR#: [id number] : 1960 Acct:[id number] Age/Sex: 63 / F ADM Date: 12/20/23 Loc: Room: [address] [place] [address] Type: ADM INOo Attending Dr: Mg Vaughn [...] Celestin DO 09/08/ 24 2322 Normal [facility] Erythrocyte distribution wid th [Ratio] by Automated countOrdered By: Rip Celestin on 12-20-2023 Erythrocyte distribution width (RBC) [Ratio] 14.1 % Normal 11.9-15.3 [facility] Comment on above: Performed By: #### C MP, CBC, HS TROP, TSH3 wRFLX #### [facility] [address] [place] [address] [place] Erythrocytes [#/volume] in B lood by Automated countOrdered By: Rip Celestin on 12-20-2023 RBC (Bld) [#/Vol] 5.37 10*6/uL High 3.60-5.00 [facility] Comment on above: Performed By: #### C MP, CBC, HS TROP, TSH3 wRFLX #### [facility] [address] [place] [address] [place] Glucose [Mass/volume] in Ser um or PlasmaOrdered By: Rip Celestin on 12-20-2023 Glucose [Mass/Vol] 103 mg/dL High 70-100 [facility] Comment on above: ADA recommended refe rence rangeRandom Glucose Reference Range is dependent on time and content of last meal. Glucose of more than 200 mg/dL in a nonstressed, ambulatory subject supports the diagnosis of Diabetes Mellitus. Result Comment: [place] Glucose Reference Range is dependent on time and content of last meal. Glucose of more than 200 mg/dL in a nonstressed, ambulatory subject supports the diagnosis of Diabetes Mellitus. ADA recommended reference range Performed By: #### C MP, CBC, HS TROP, TSH3 wRFLX #### [facility] [address] [place] [id number] [place] Hematocrit [Volume Fraction] of Blood by Automated countOrdered By: Rip Celestin on 12-20-2023 Hematocrit (Bld) [Volume fraction] 44.5 % Normal 34.0-46.4 [facility] Comment on above: Performed By: #### C MP, CBC, HS TROP, TSH3 wRFLX #### [facility] [address] [place] [id number] [place] Hemoglobin [Mass/volume] in BloodOrdered By: Rip Celestin on 12-20-2023 Hemoglobin (Bld) [Mass/Vol] 14.5 g/dL Normal 11.8-15.4 [facility] Comment on above: Performed By: #### C MP, CBC, HS TROP, TSH3 wRFLX #### [address] Leukocytes [#/volume] correc sommer for nucleated erythrocytes in Blood by Automated counOrdered By: Rip Celestin on 12-20-2023 WBC corrected for nucl RBC Auto (Bld) [#/Vol] 8.4 10*3/uL 3.8-11.6 [facility] Leukocytes [#/volume] in Blo od by Automated countOrdered By: Rip Celestin on 12-20-2023 WBC (Bld) [#/Vol] 8.4 10*3/uL Normal 3.8-11.6 [facility] Comment on above: Performed By: #### C MP, CBC, HS TROP, TSH3 wRFLX #### [place] [address] [place] Lymphocytes [#/volume] in Bl ood by Automated countOrdered By: Rip Celestin on 12-20-2023 Lymphocytes (Bld) [#/Vol] 0.8 10*3/uL Low 1.00-4.8 [facility] Comment on above: Performed By: #### C MP, CBC, HS TROP, TSH3 wRFLX #### [place] [address] [place] Lymphocytes/100 leukocytes i n Blood by Automated countOrdered By: Rip Celestin on 12-20-2023 Lymphocytes/100 WBC (Bld) 9.8 % Normal . [facility] Comment on above: Performed By: #### C MP, CBC, HS TROP, TSH3 wRFLX #### [place] [address] [place] MCH [Entitic mass] by Automa sommer countOrdered By: Rip Celestin on 12-20-2023 MCH (RBC) [Entitic mass] 27.0 pg Normal 24.7-34.3 [facility] Comment on above: Performed By: #### C MP, CBC, HS TROP, TSH3 wRFLX #### [facility] [address] [place] [address] MCHC Auto (RBC) [Mass/Vol]Or dered By: Rip Celestin on 12-20-2023 MCHC (RBC) [Mass/Vol] 32.6 g/dL 32.0-35.0 [facility] MCV [Entitic volume] by Auto mated countOrdered By: Rip Celestin on 12-20-2023 MCV (RBC) [Entitic vol] 82.9 fL Normal 80-100 [facility] Comment on above: Performed By: #### C MP, CBC, HS TROP, TSH3 wRFLX #### [facility] [address] [place] [address] Monocyte distribution width [Entitic volume] in Blood by AutomatedOrdered By: Rip Celestin on 12-20-2023 Monocyte distribution width Auto (Bld) [Entitic vol] 16.32 % 0.00-20.00 [facility] Monocyte distribution width Auto (Bld) [Entitic vol] Monocyte distribution width [Entitic volume] in Blood by Automated 0.00-20.00 [facility] Natriuretic peptide B [Mass/ Vol]Ordered By: Rip Celestin on 12-20-2023 Natriuretic peptide B (Bld) [Mass/Vol] BNP ser/plas 5-100 [facility] Neutrophils [#/volume] in Bl ood by Automated countOrdered By: Rip Celestin on 12-20-2023 Neutrophils (Bld) [#/Vol] 7.0 10*3/uL Normal 1.8-7.7 [facility] Comment on above: Performed By: #### C MP, CBC, HS TROP, TSH3 wRFLX #### [facility] [address] [place] [address] No Panel InformationOrdered By: Rip Celestin on 12-20-2023 Blood Gas Critical Value See comment [facility] Comment on above: Critical Value greenwood d on: 12/20/2023 at 20:23 Blood Gas Sample Site Venous [facility] FiO2 28 % [facility] Oxygen Delivery Device Nasal cannula [facility] Venous Blood Base Excess 16.9 mmol/L High -3.0-3.0 [facility] Venous Blood Oxygen Content 8.2 mmol/L 6.6-9.7 [facility] Venous Blood Oxygen Saturation 83.6 % High 73.0-76.0 [facility] Venous Blood Partial Pressure CO2 84.8 mm[Hg] Critically high 38.0-50.0 [facility] Venous Blood Partial Pressure O2 46.5 mm[Hg] High 35.0-45.0 [facility] Venous Blood pH 7.37 7.32-7.43 [facility] Estimated GFR (CKD-EPI) > 60.0 mL/Min [facility] Creatinine Clearance (Chem 94.74 [facility] Nucleated erythrocytes [Pres ence] in Blood by Automated countOrdered By: Rip Celestin on 12-20-2023 Nucleated RBC Auto Ql (Bld) 0.1 /100{WBC} 0-0.5 [facility] Platelet mean volume [Entiti c volume] in Blood by Automated countOrdered By: Rip Celestin on 12-20-2023 Platelet mean volume (Bld) [Entitic vol] 7.0 fL Normal 6.3-10.7 [facility] Comment on above: Performed By: #### C MP, CBC, HS TROP, TSH3 wRFLX #### [facility] [address] Platelets [#/volume] in Bloo d by Automated countOrdered By: Rip Celestin on 12-20-2023 Platelets (Bld) [#/Vol] 346 10*3/uL Normal 150-450 [facility] Comment on above: Performed By: #### C MP, CBC, HS TROP, TSH3 wRFLX #### [facility] [address] [place] [address] [place] Potassium [Moles/volume] in Serum or PlasmaOrdered By: Rip Celestin on 12-20-2023 Potassium [Moles/Vol] 4.4 mmol/L Normal 3.5-5.1 [facility] Comment on above: Performed By: #### C MP, CBC, HS TROP, TSH3 wRFLX #### [facility] [address] [place] [address] Protein [Mass/volume] in Ser um or PlasmaOrdered By: Rip Celestin on 12-20-2023 Protein [Mass/Vol] 7.6 g/dL Normal 6.4-8.9 [facility] Comment on above: Performed By: #### C MP, CBC, HS TROP, TSH3 wRFLX #### [address] Serum globulin measurement b y calculation (mass/volume)Ordered By: Rip Celestin on 12-20-2023 Globulin (S) [Mass/Vol] 3.4 g/dL Normal [facility] Comment on above: Performed By: #### C MP, CBC, HS TROP, TSH3 wRFLX #### [facility] [address] [place] [address] Serum or plasma albumin/glob ulin mass ratioOrdered By: Rip Celestin on 12-20-2023 Albumin/Globulin [Mass ratio] 1.2 {ratio} Normal [facility] Comment on above: Performed By: #### C MP, CBC, HS TROP, TSH3 wRFLX #### [address] Serum or plasma anion gap de terminationOrdered By: Rip Celestin on 12-20-2023 Anion gap [Moles/Vol] TNP [facility] Comment on above: Test not performed Sodium [Moles/volume] in Ser um or PlasmaOrdered By: Rip Celestin on 12-20-2023 Sodium [Moles/Vol] 136 mmol/L Normal 136-145 [facility] Comment on above: Performed By: #### C MP, CBC, HS TROP, TSH3 wRFLX #### [address] Theophyllineon 12-20-2023 Theophylline 3.6 ug/mL Low 10.0-20.0 [facility] Comment on above: Order Comment: Date of last dose?: 20231220 Time of last dose?: 899 Result Comment: Last dose: 12/20/23 PERFORMED BY: [address] [address] PATHOLOGIST PLASTICS SCIENTIST JASMEET LIN M.D. Performed By: #### C MP, CBC, HS TROP, TSH3 wRFLX #### [place] [id number] [facility] Theophylline [Mass/volume] i n Serum or PlasmaOrdered By: Rip Celestin on 12-20-2023 Theophylline [Mass/Vol] 3.6 ug/mL Low 10.0-20.0 [facility] Comment on above: Last dose: 12/20/23899 Theophylline [Mass/Vol] Theophylline [Mass/volume] in Serum or Plasma Low 10.0-20.0 [facility] Comment on above: Last dose: 12/20/23899 Troponin I High Sensitivityo n 12-20-2023 Troponin I High Sensitivity 4.3 pg/mL Normal 0.0-15.0 [facility] Comment on above: Result Comment: PERF ORMED BY: [address] [address] PATHOLOGIST PLASTICS SCIENTIST JASMEET LIN M.D. Performed By: #### C MP, CBC, HS TROP, TSH3 wRFLX #### [address] [address] [facility] Troponin I.cardiac [Mass/vol ume] in Serum or Plasma by Detection limit <= 0.01 ng/Ordered By: Rip Celestin on 12-20-2023 Troponin I.cardiac DL <= 0.01 ng/mL [Mass/Vol] 4.3 pg/mL 0.0-15.0 [facility] Troponin I.cardiac DL <= 0.01 ng/mL [Mass/Vol] Troponin I.cardiac [Mass/volume] in Serum or Plasma by Detection limit <= 0.01 ng/ 0.0-15.0 [facility] Urea nitrogen [Mass/volume] in Serum or PlasmaOrdered By: Rip Celestin on 12-20-2023 Urea nitrogen [Mass/Vol] 11 mg/dL Normal 7-25 [facility] Comment on above: Performed By: #### C MP, CBC, HS TROP, TSH3 wRFLX #### [address] Venous Blood GasOrdered By: Rip Celestin on 12-20-2023 CO2 [Moles/Vol] 50.2 mmol/L High 24.0-29.[address] [facility] Comment on above: Performed By: #### C MP, CBC, HS TROP, TSH3 wRFLX #### [address] HCO3 (Bld) [Moles/Vol] 47.6 mmol/L High 23.0-29.0 [facility] Comment on above: Performed By: #### C MP, CBC, HS TROP, TSH3 wRFLX #### [address] Venous Blood Gason Oxygen Device Nasal Cannula Normal [facility] Comment on above: Performed By: #### C MP, CBC, HS TROP, TSH3 wRFLX #### [address] Respiratory Critical Normal [facility] Comment on above: Result Comment: Crit ical Value called on: 12/20/2023 at 20:23 PERFORMED BY: [place] [address] PATHOLOGIST PLASTICS SCIENTIST JASMEET LIN M.D. Performed By: #### C MP, CBC, HS TROP, TSH3 wRFLX #### [address] VBG Base Excess 16.9 mmol/L High -3.0-3.0 [facility] Comment on above: Performed By: #### C MP, CBC, HS TROP, TSH3 wRFLX #### [address] VBG Draw Site Venous Normal [facility] Comment on above: Performed By: #### C MP, CBC, HS TROP, TSH3 wRFLX #### [address] VBG Frac Inspired O2 28 % Normal [facility] Comment on above: Performed By: #### C MP, CBC, HS TROP, TSH3 wRFLX #### [address] VBG O2 Content 8.2 mmol/L Normal 6.6-9.7 [facility] Comment on above: Performed By: #### C MP, CBC, HS TROP, TSH3 wRFLX #### [address] VBG Oxygen Saturation 83.6 % High 73.0-76.0 [facility] Comment on above: Performed By: #### C MP, CBC, HS TROP, TSH3 wRFLX #### [address] VBG PCO2 84.8 mm[Hg] Off scale high 38.0-50.0 [facility] Comment on above: Performed By: #### C MP, CBC, HS TROP, TSH3 wRFLX #### [address] VBG PH Venous PH 7.37 Normal 7.32-7.43 [facility] Comment on above: Performed By: #### C MP, CBC, HS TROP, TSH3 wRFLX #### [address] VBG PO2 46.5 mm[Hg] High 35.0-45.0 [facility] Comment on above: Performed By: #### C MP, CBC, HS TROP, TSH3 wRFLX #### [address] ANES POSTPROC EVALon 024 ANES POSTPROC EVAL HNO ID: [id number] Author: DORON FLORENTINO MD Service: ? Author Type: Anesthesiologist Type: Anesthesia Postprocedure Evaluation Filed: 11/19/2023 07:55 Note Text: POST ANESTHESIA EVALUATION NOTE : 1960 Procedure Summary Date: 11/18/23 Room / Location: [address] Anesthesia Start: 1535 Anesthesia Stop: 1749 [...] November 19, 2023 TIME: 7:55 AM CSN: [id number] Normal [facility] 11-19-2023 [facility] Telephone (HNQ) CINTHIA GUERRERO ([id number]) 1960 F Date Time Provider Department 11/19/23 TEO CRAFT HNQ During your visit today, we recorded the following information about you: Ananya Acuna 11/19/2023 1:51 PM Signed Person Calling:Omaira Reason for Call: requesting a work excuse for her daughter Kendal Ruiz fir 11/17 AND 11/18. Pt Phone #: [phone] Pharmacy Name and # : Pt last [...] Encounter Status:Closed by ANANYA ACUNA on 11/19/23 [facility] ANES PRE-OPon 11-18-2023 ANES PRE-OP HNO ID: [id number] Author: DORON FLORENTINO MD Service: ? Author [...] November 18, 2023 TIME: 3:43 PM CSN: [id number] Normal [facility] ECG COMPLETEon 11-18-2023 Atrial Rate 115 BPM [facility] Calculated P Tina 94 degrees [facility] Calculated R Tina 84 degrees [facility] Calculated T Tina 88 degrees [facility] P-R Interval 158 ms [facility] QRS Duration 74 ms [facility] QT Interval 312 ms [facility] QTC Calculation (Bazett) 431 ms [facility] Ventricular Rate 115 BPM [facility] SINUS TACHYCARDIA RIGHT ATRIAL ENLARGEMENT MINIMAL VOLTAGE CRITERIA FOR LVH, MAY BE NORMAL VARIANT BORDERLINE ECG NO PREVIOUS ECGS AVAILABLE Confirmed by MD BLAND GREGORY () on 11/18/2023 7:35:32 AM [facility] NAME : CINTHIA GUERRERO PID : [id number] : 1960 Gender : Female Race : ORD : [id number] Procedure Date : Nov 17 2023 14:38:04 Edit Date : Nov 18 2023 07:35:34 Diagnosis: SINUS TACHYCARDIA RIGHT ATRIAL ENLARGEMENT MINIMAL VOLTAGE CRITERIA FOR LVH, MAY BE NORMAL VARIANT BORDERLINE ECG NO PREVIOUS ECGS AVAILABLE Confirmed by MD BLAND GREGORY () on 11/18/2023 7:35:32 AM Test Reason : [facility] Location : 10 : [facility] Overread By : MD BLAND GREGORY Edited By : MD BLAND GREGORY Referred By : TEO CRAFT Acquired by : PERLA JUNIOR CPD [facility] OPERATIVE NOon 11-18-2023 OPERATIVE NO HNO ID: [id number] Author: TEO CRAFT MD Service: Otolaryngology Author Type: Physician Type: Operative Report Filed: 11/23/2023 12:14 Note Text: The [address] [id number] or ([phone]) [facility] C O N F I D E N T I A L I N F O R M A T I O N STANDARD [facility] DOCUMENT OPERATIVE REPORT Otolaryngology Head and Neck Surgery Name: CINTHIA Guerrero [facility] #: [id number] Date: 11/18/2023 Date of : 1960 Pre [...] Teo Craft MD Brandon Prendes, MD Normal [facility] SURGICAL PATHOLOGYon 024 CASE REPORT Normal [facility] Comment on above: Order Comment: Speci men Type: TISSUE SPECIMENOrdering Facility: [facility] Address: [address] [place] [address] Result Comment: Surg ica Pathology Report Case: [id number] Authorizing Provider: Teo Craft MD Collected: 11/18/2023 04:25 PM Ordering Location: Admitting Received: 11/18/2023 05:12 PM Pathologist: Stephane Elmore MD, PhD Specimens: A) - Lymph Node, Biopsy, Left posterior supraclavicular lymph node B) - Lymph Node, Biopsy, Left supraclavicular external jugular node Performed By: #### S ####[facility] [id number] [address] LABORATORYCLIA [id number] [address] CLINICAL HISTORY Normal [facility] Comment on above: Order Comment: Speci men Type: TISSUE SPECIMENOrdering Facility: [facility] Address: [address] [place] [address] Result Comment: Pre- op diagnosis: Non-small cell cancer of left lung (HCC) [C34.92] Lymphadenopathy [R59.1] Performed By: #### S ####[facility] [id number] [address] LABORATORYCLIA [id number] [address] DIAGNOSIS COMMENT Normal [facility] Comment on above: Order Comment: Speci deepthi Type: TISSUE SPECIMENOrdering Facility: [facility] Address: [address] [place] [address] Result Comment: The morphologic findings described below show benign lymph nodes with follicular hyperplasia. Granulomatous diseases not identified. GMS stains are negative for microorganisms. There is no evidence of a lymphoproliferative disorder, metastatic carcinoma or other malignancy. Laboratory Developed Test (LDT) Disclaimer: Performance characteristics of immunohistochemical, immunofluorescent and chromogenic in-situ hybridization tests have been determined by the performing laboratory within [facility]???s Adarsh Yang Pathology and Laboratory Medicine Department ([facility], [facility], [facility], [facility], [facility], [facility], [facility]) in a manner consistent with CLIA requirements. One or more of these tests have not been cleared or approved by the FDA. [facility] is regulated under CLIA as qualified to perform high-complexity testing. These tests are used for clinical purposes. They should not be regarded as investigational or for research. Positive and negative controls stain appropriately. Performed By: #### S ####[facility] LABCLIA [id number] [address] LABORATORYIA [id number] [address] FINAL DIAGNOSIS Normal [facility] Comment on above: Order Comment: Speci men Type: TISSUE SPECIMENOrdering Facility: [facility] Address: [address] [place] [address] Result Comment: Lymp h nodes, left posterior supraclavicular and left supraclavicular external jugular, excisional biopsies (A-B): - Benign lymph nodes with follicular hyperplasia. - GMS stains negative for microorganisms. - No evidence of malignancy. - See comment. [facility] Performed By: #### S ####[facility]CLIA [id number] [address] LABORATORYIA [id number] [address] FINAL PERFORMING LAB Normal [facility] Comment on above: Order Comment: Speci men Type: TISSUE SPECIMENOrdering Facility: [facility] Address: [address] [place] [address] Result Comment: Diag nostic interpretation performed at [facility], [address] [place] [address] CLIA# [id number] Sales And Service Advisor: Axel Romano M.D. Performed By: #### S ####[facility] LABCLIA [id number] [id number] [address] GROSS DESCRIPTION Normal [facility] Comment on above: Order Comment: Speci men Type: TISSUE SPECIMENOrdering Facility: [facility] Address: [address] [place] [address] Result Comment: A. L ymph Node, Biopsy [...] 2023 12:08 PM Gross examination performed at [facility], [address] [place] [address] Performed By: #### S ####[facility] LABCLIA [id number] [address] [id number] [address] MICROSCOPIC DESCRIPTION The histologic sections of [...] D1 stain shows no lymphoid staining. Normal [facility] Comment on above: Order Comment: Speci men Type: TISSUE SPECIMENOrdering Facility: [facility] Address: [address] [place] [address] Performed By: #### S ####[facility] LABCLIA [id number] [place] [id number] [facility] LABORATORYCLIA [id number] [place] [id number] [place] Basic metabolic 2000 panelon 11-17-2023 Anion gap [Moles/Vol] 8 mmol/L 8 - 15 mmol/L [facility] Calcium [Mass/Vol] 9.7 mg/dL 8.5 - 10. 2 mg/dL [facility] Chloride [Moles/Vol] 95 mmol/L Low 98 - 10 7 mmol/L [facility] CO2 [Moles/Vol] 36 mmol/L High 22 - 30 mmol/L [facility] Creatinine [Mass/Vol] 0.37 mg/dL Low 0.58 - 0.96 mg/dL [facility] GFR/1.73 sq M.predicted among non-blacks MDRD (S/P/Bld) [Vol rate/Area] 114 mL/min/{1.73_m2} - PINF [facility] Comment on above: Estimated Glomerular Filtration [...] 200 mg/dL High 74 - 99 mg/dL [facility] Comment on above: The Chinese Diabete s Association (ADA) provides guidance for [...] Standards of Medical Care in Diabetes 2016, Chinese Diabetes Association. Diabetes Care. 2016.39(Suppl 1). Interpretation and review of laboratory results Abnormal [facility] Potassium [Moles/Vol] 3.9 mmol/L 3.7 - 5.1 mmol/L [facility] Sodium [Moles/Vol] 139 mmol/L 136 - 144 mmol/L [facility] Urea nitrogen [Mass/Vol] 8 mg/dL 7 - 21 mg/dL [facility] Anion gap [Moles/Vol] 8 mmol/L Normal 8-15 [facility] Comment on above: Order Comment: Speci men Type: BLOOD SPECIMEN [facility] Address: [address] [place] [address] Performed By: #### 2 4321-2 #### [facility] CLIA [id number] [address] [place] [address] [place] Calcium [Mass/Vol] 9.7 mg/dL Normal 8.5-10.2 [facility] Comment on above: Order Comment: Speci men Type: BLOOD SPECIMEN [facility] Address: [address] [place] [address] Performed By: #### 2 4321-2 #### [facility] CLIA [id number] [address] [place] [address] [place] Chloride [Moles/Vol] 95 mmol/L Low 98-107 [facility] Comment on above: Order Comment: Speci men Type: BLOOD SPECIMEN [facility] Address: [address] [place] [address] Performed By: #### 2 4321-2 #### [facility] CLIA [id number] [address] [place] [address] [place] CO2 [Moles/Vol] 36 mmol/L High 22-30 [facility] Comment on above: Order Comment: Speci men Type: BLOOD SPECIMEN [facility] Address: [address] [place] [address] Performed By: #### 2 4321-2 #### [facility] CLIA [id number] [address] [place] [address] [place] Creatinine [Mass/Vol] 0.37 mg/dL Low 0.58-0.96 [facility] Comment on above: Order Comment: Speci men Type: BLOOD SPECIMEN [facility] Address: [address] [place] [address] Performed By: #### 2 4321-2 #### [facility] CLIA [id number] [address] Creatinine and Glomerular filtration rate.predicted panel (S/P/Bld) 114 mL/min/1.73m??? Normal >=60 [facility] Comment on above: Order Comment: Renuka lacey Type: BLOOD SPECIMEN [facility] Address: [address] [place] [address] Result Comment: Angelique mated Glomerular Filtration Rate [...] GFR. Performed By: #### 2 4321-2 #### [facility] CLIA [id number] [address] [place] Glucose [Mass/Vol] 200 mg/dL High 74-99 [facility] Comment on above: Order Comment: Renuka lacey Type: BLOOD SPECIMEN [facility] Address: [address] [place] [address] Result Comment: The Chinese Diabetes Association (ADA) provides guidance for cutoff [...] Standards of Medical Care in Diabetes 2016, Chinese Diabetes Association. Diabetes Care. 2016.39(Suppl 1). Performed By: #### 2 4321-2 #### [facility] CLIA [id number] [address] [place] [address] [place] Potassium [Moles/Vol] 3.9 mmol/L Normal 3.7-5.1 [facility] Comment on above: Order Comment: Speci men Type: BLOOD SPECIMEN [facility] Address: [address] [place] [address] Performed By: #### 2 4321-2 #### [facility] CLIA [id number] [address] [place] Sodium [Moles/Vol] 139 mmol/L Normal 136-144 [facility] Comment on above: Order Comment: Speci men Type: BLOOD SPECIMEN [facility] Address: [address] [place] [address] Performed By: #### 2 4321-2 #### [facility] CLIA [id number] [address] [place] [facility] Urea nitrogen [Mass/Vol] 8 mg/dL Normal 7-21 [facility] Comment on above: Order Comment: Speci men Type: BLOOD SPECIMEN [facility] Address: [address] [place] [address] Performed By: #### 2 4321-2 #### [facility] CLIA [id number] [address] [place] CBC W Auto Differential pane l (Bld)on 11-17-2023 Basophils (Bld) [#/Vol] [facility] C [facility] Basophils/100 WBC (Bld) 0.2 % C [facility] Differential cell count method Nom (Bld) Auto [facility] Eosinophils (Bld) [#/Vol] NINF [facility] Eosinophils/100 WBC (Bld) 0.4 % [facility] Erythrocyte distribution width (RBC) [Ratio] 12.8 % 11.5 - 15.0 % [facility] Hematocrit (Bld) [Volume fraction] 40.3 % 36.0 - 46.0 % [facility] Hemoglobin (Bld) [Mass/Vol] 12.4 g/dL 11.5 - 15.5 g/dL [facility] Immature granulocytes (Bld) [#/Vol] NINF [facility] Immature granulocytes/100 WBC (Bld) 0.2 % [facility] Interpretation and review of laboratory results Abnormal [facility] Lymphocytes (Bld) [#/Vol] 0.31 10*3/uL Low [facility] Lymphocytes/100 WBC (Bld) 6.0 % [facility] MCH (RBC) [Entitic mass] 26.4 pg 26.0 - 34.0 pg [facility] MCHC (RBC) [Mass/Vol] 30.8 g/dL 30.5 - 36.0 g/dL [facility] MCV (RBC) [Entitic vol] 85.9 fL 80.0 - 100.0 fL [facility] Monocytes (Bld) [#/Vol] 0.06 10*3/uL [facility] Monocytes/100 WBC (Bld) 1.2 % [facility] Neutrophils (Bld) [#/Vol] 4.76 10*3/uL [facility] Neutrophils/100 WBC (Bld) 92.0 % [facility] Nucleated RBC (Bld) [#/Vol] NINF [facility] Nucleated RBC/100 WBC (Bld) [Ratio] 0.0 % /100 WBC [facility] Platelet mean volume (Bld) [Entitic vol] 9.0 fL 9.0 - 12.7 fL [facility] Platelets (Bld) [#/Vol] 286 10*3/uL [facility] RBC (Bld) [#/Vol] 4.69 10*6/uL 3.90 - 5.2 0 m/uL [facility] WBC (Bld) [#/Vol] 5.17 10*3/uL [facility] Basophils (Bld) [#/Vol] 10*3/uL Normal <0.11 [facility] Comment on above: Order Comment: Speci men Type: BLOOD SPECIMEN [facility] Address: [address] [place] [address] Performed By: #### 5 7021-8 #### [facility] CLIA [id number] [address] [place] [address] Basophils/100 WBC (Bld) 0.2 % Normal [facility] Comment on above: Order Comment: Speci men Type: BLOOD SPECIMEN [facility] Address: [address] [place] [address] Performed By: #### 5 7021-8 #### [facility] CLIA [id number] [address] [place] Differential cell count method Nom (Bld) Auto Normal [facility] Comment on above: Order Comment: Speci men Type: BLOOD SPECIMEN [facility] Address: [address] [place] [address] Performed By: #### 5 7021-8 #### [facility] CLIA [id number] [address] [place] [address] [place] Eosinophils (Bld) [#/Vol] 10*3/uL Normal <0.46 [facility] Comment on above: Order Comment: Speci men Type: BLOOD SPECIMEN [facility] Address: [address] [place] [address] Performed By: #### 5 7021-8 #### [facility] CLIA [id number] [address] [place] Eosinophils/100 WBC (Bld) 0.4 % Normal [facility] Comment on above: Order Comment: Speci men Type: BLOOD SPECIMEN [facility] Address: [address] [place] [address] Performed By: #### 5 7021-8 #### [facility] CLIA [id number] [address] [place] Erythrocyte distribution width (RBC) [Ratio] 12.8 % Normal 11.5-15.0 [facility] Comment on above: Order Comment: Speci men Type: BLOOD SPECIMEN [facility] Address: [address] [place] [address] Performed By: #### 5 7021-8 #### [facility] CLIA [id number] [address] [place] Hematocrit (Bld) [Volume fraction] 40.3 % Normal 36.0-46.0 [facility] Comment on above: Order Comment: Speci men Type: BLOOD SPECIMEN [facility] Address: [address] [place] [address] Performed By: #### 5 7021-8 #### [facility] CLIA [id number] [address] [place] Hemoglobin (Bld) [Mass/Vol] 12.4 g/dL Normal 11.5-15.5 [facility] Comment on above: Order Comment: Speci men Type: BLOOD SPECIMEN [facility] Address: [address] [place] [address] Performed By: #### 5 7021-8 #### [facility] CLIA [id number] [address] [place] [address] [place] Immature granulocytes (Bld) [#/Vol] 10*3/uL Normal <0.10 [facility] Comment on above: Order Comment: Speci men Type: BLOOD SPECIMEN [facility] Address: [address] [place] [address] Performed By: #### 5 7021-8 #### [facility] CLIA [id number] [address] Immature granulocytes/100 WBC (Bld) 0.2 % Normal [facility] Comment on above: Order Comment: Speci men Type: BLOOD SPECIMEN [facility] Address: [address] [place] [address] Performed By: #### 5 7021-8 #### [facility] CLIA [id number] [address] [place] Lymphocytes (Bld) [#/Vol] 0.31 10*3/uL Low 1.00-4.00 [facility] Comment on above: Order Comment: Speci men Type: BLOOD SPECIMEN [facility] Address: [address] [place] [address] Performed By: #### 5 7021-8 #### [facility] CLIA [id number] [address] Lymphocytes/100 WBC (Bld) 6.0 % Normal [facility] Comment on above: Order Comment: Speci men Type: BLOOD SPECIMEN [facility] Address: [address] [place] [address] Performed By: #### 5 7021-8 #### [facility] CLIA [id number] [address] MCH (RBC) [Entitic mass] 26.4 pg Normal 26.0-34.0 [facility] Comment on above: Order Comment: Speci men Type: BLOOD SPECIMEN [facility] Address: [address] [place] [address] Performed By: #### 5 7021-8 #### [facility] CLIA [id number] [address] MCHC (RBC) [Mass/Vol] 30.8 g/dL Normal 30.5-36.0 [facility] Comment on above: Order Comment: Speci men Type: BLOOD SPECIMEN [facility] Address: [address] [place] [address] Performed By: #### 5 7021-8 #### [facility] CLIA [id number] [address] MCV (RBC) [Entitic vol] 85.9 fL Normal 80.0-100.0 [facility] Comment on above: Order Comment: Speci men Type: BLOOD SPECIMEN [facility] Address: [address] [place] [address] Performed By: #### 5 7021-8 #### [facility] CLIA [id number] [address] Monocytes (Bld) [#/Vol] 0.06 10*3/uL Normal <0.87 [facility] Comment on above: Order Comment: Speci men Type: BLOOD SPECIMEN [facility] Address: [address] [place] [address] Performed By: #### 5 7021-8 #### [facility] CLIA [id number] [address] Monocytes/100 WBC (Bld) 1.2 % Normal [facility] Comment on above: Order Comment: Speci men Type: BLOOD SPECIMEN [facility] Address: [address] [place] [address] Performed By: #### 5 7021-8 #### [facility] CLIA [id number] [address] [place] [address] [place] Neutrophils (Bld) [#/Vol] 4.76 10*3/uL Normal 1.45-7.50 [facility] Comment on above: Order Comment: Speci men Type: BLOOD SPECIMEN [facility] Address: [address] [place] [address] Performed By: #### 5 7021-8 #### [facility] CLIA [id number] [address] [place] [address] [place] Neutrophils/100 WBC (Bld) 92.0 % Normal [facility] Comment on above: Order Comment: Speci men Type: BLOOD SPECIMEN [facility] Address: [address] [place] [address] Performed By: #### 5 7021-8 #### [facility] CLIA [id number] [address] [place] Nucleated RBC (Bld) [#/Vol] 10*3/uL Normal <0.01 [facility] Comment on above: Order Comment: Speci men Type: BLOOD SPECIMEN Ordering Facility: [facility] Address: [address] [place] [address] Performed By: #### 5 7021-8 #### [facility] CLIA [id number] [address] OF [facility] Nucleated RBC/100 WBC (Bld) [Ratio] 0.0 /100 WBC Normal [facility] Comment on above: Order Comment: Speci men Type: BLOOD SPECIMEN Ordering Facility: [facility] Address: [address] [place] [address] Performed By: #### 5 7021-8 #### [facility] CLIA [id number] [address] OF [place] Platelet mean volume (Bld) [Entitic vol] 9.0 fL Normal 9.0-12.7 [facility] Comment on above: Order Comment: Speci men Type: BLOOD SPECIMEN Ordering Facility: [facility] Address: [address] [place] [address] Performed By: #### 5 7021-8 #### [facility] CLIA [id number] [address] OF [place] Platelets (Bld) [#/Vol] 286 10*3/uL Normal 150-400 [facility] Comment on above: Order Comment: Speci men Type: BLOOD SPECIMEN Ordering Facility: [facility] Address: [address] [place] [address] Performed By: #### 5 7021-8 #### [facility] CLIA [id number] [address] RBC (Bld) [#/Vol] 4.69 10*6/uL Normal 3.90-5.20 [facility] Comment on above: Order Comment: Speci men Type: BLOOD SPECIMEN Ordering Facility: [facility] Address: [address] [place] [address] Performed By: #### 5 7021-8 #### [facility] CLIA [id number] [address] OF [facility] WBC (Bld) [#/Vol] 5.17 10*3/uL Normal 3.70-11.00 [facility] Comment on above: Order Comment: Speci men Type: BLOOD SPECIMEN Ordering Facility: [facility] Address: [address] [place] [address] Performed By: #### 5 7021-8 #### [facility] CLIA [id number] [address] ECG COMPLETEon 11-17-2023 ECG COMPLETE Ventricular Rate : 1 15 BPM Atrial Rate : 115 BPM P-R Interval : 158 ms QRS Duration : 74 ms Q-T Interval : 312 ms QTC Calculation(Bazett) : 431 ms Calculated P Tina : 94 degrees Calculated R Tina : 84 degrees Calculated T Tina : 88 degrees SINUS TACHYCARDIA RIGHT ATRIAL ENLARGEMENT MINIMAL VOLTAGE CRITERIA FOR LVH, MAY BE NORMAL VARIANT BORDERLINE ECG NO PREVIOUS ECGS AVAILABLE Confirmed by MD BLAND GREGORY () on 11/18/2023 7:35:32 AM NAME : CINTHIA GUERRERO PID : [id number] : 1960 Gender : Female Race : ORD : [id number] Procedure Date : Nov 17 2023 14:38:04 Edit Date : Nov 18 2023 07:35:34 Diagnosis: SINUS TACHYCARDIA RIGHT ATRIAL ENLARGEMENT MINIMAL VOLTAGE CRITERIA FOR LVH, MAY BE NORMAL VARIANT BORDERLINE ECG NO PREVIOUS ECGS AVAILABLE Confirmed by MD BLAND GREGORY () on 11/18/2023 7:35:32 AM Test Reason : HCS Location : [address] [place] [address] Overread By : MD BLAND GREGORY Edited By : MD BLAND GREGORY Referred By : TEO CRAFT Acquired by : SANDI [facility] HISTORY PHYSICALon HISTORY PHYSICAL HNO ID: [id number] Author: BRIE KAUR PA-C Service: ? Author Type: Physician Chemistry Physics Teacher Type: H&P Filed: 11/17/2023 15:34 Note Text: [...] NC. Follows with outside pulm at [facility], Dr. Valery DAVIS in October per pt. Diminished breath sounds bilaterally throughout, no wheezing. SpO2 95% on 2L O2. 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 Pt reports she called building materials sales attendant's office because she felt like her breathing [...] large neck Non-male patient STOP-Bang Score: 1 [id number] Score: Age: <65 Sex: female CHF history: No Hypertension history: No Stroke/TIA/thromboembo lism history: No Vascular disease history: No Diabetes history: No [id number] Score: 1 ANESTHESIA FINDINGS: Intubation History: No [...] Initiated: Orders placed by surgeon/surgical service in Psychiatric. Orders Placed This Encounter Complete Blood Count [...] currently 12/16/23 i (more content not included)... [facility] 11-16-2023 [facility] Telephone (RADTSA) CINTHIA GUERRERO ([id number]) 1960 F Date Time Provider Department 11/16/23 [...] her again. She would appreciate a call [facility]. Thank you Abdi Israel MD 11/16/2023 5:41 [...] lung (HCC) [C34.90] Order(s):NM PET/CT SKULL-THIGH SUBSEQUENT [[id number]] Order #: [id number] FUTURE CT CHEST W IVCON [[id number]] Order #: [id number] FUTURE [] iv contrast (will be provided [...] Encounter Status:Closed by SILVIA JHA on 12/09/23 [facility] CNАлександр 10-27-2023 CNOV Office Visit (OTOLMN ) CINTHIA GUERRERO ([id number]) 1960 F Date Time Provider Department 10/27/23 [...] Teo Craft MD 12/07/2023 12:32 AM Signed [place] [facility] This consult was requested by [...] IX, X: (more content not included)... Normal [facility] US NECK (POC) HNI USE ONLYon 10-27-2023 [facility] Radiology Study observation (narrative) [facility] CNPN Telephone (NCCAP) CINTHIA GUERRERO ([id number]) 1960 F Date Time Provider Department 09/21/23 ABDI ISRAEL During your visit today, we recorded the following information about you: Rodney Rinaldi 09/21/2023 7:17 AM Signed Abdi Israel MD Stock, Khushboo Linda MD, Cc: Julisa Pressley, STACIE; Silvia Jha, LUCIE; Rodney Rinaldi Nm Dr. Mcintyre - I appreciate the update [...] node (HCC) [C77.0] Order(s):BIOPSY/REMOVA L, LYMPH NODE(S) [[id number]] Order #: [id number] CONSULT TO ENT [9008] Order #: [id number]: 1 FUTURE Prescriptions as of 09/30/2023 - [...] Encounter Status:Closed by RODNEY RINALDI on 09/30/23 [facility] BRIEF OP NOTon 09-16-2023 BRIEF OP NOT HNO ID: [id number] Author: KHUSHBOO MCINTYRE MD Service: Radiology Author Type: Physician Type: Brief Op Note Filed: 09/16/2023 11:09 Note Text: Summary: Left cervical lymph node biopsy BRIEF OPERATIVE / PROCEDURE NOTE LOG ID: [id number] SURGERY/PROCEDURE DATE: 09/16/2023 INCISION/PROCEDURE START TIME: 10:42 AM INCISION CLOSE/PROCEDURE END TIME: 11:02 AM SURGEON(S)/PROCEDURALI ST(S) AND ATTENDANT CAMPGROUND(S): Surgeon(s) and Role: * Khushboo Mcintyre MD, [...] DATE: September 16, 2023 TIME: 11:06 AM [facility] NURSING PROGon 09-16-2023 NURSING PROG HNO ID: [id number] Author: YAKELIN REILLY RN Service: ? Author Type: Registered Nurse Type: Nursing Progress Note Filed: 09/17/2023 08:20 Note Text: Completed post procedure phone call. Omaira is feeling well and has returned to her baseline diet and activity. Omaira denies questions or concerns related to her biopsy appointment on 09/16/23 and had no surgical site concerns. Normal [facility] PT EDon 09-16-2023 PT ED HNO ID: [id number] Author: RASHID HOWELL RN Service: ? Author [...] RN In Department: HOSP MAIN FB36 Normal [facility] SURGICAL PATHOLOGYon CASE REPORT Normal [facility] Comment on above: Order Comment: Speci men Type: TISSUE SPECIMENOrdering Facility: [facility] Address: [address] [place] [address] Result Comment: Surg ical Pathology Report Case: [id number] Authorizing Provider: Khushboo Mcintyre MD, MD Collected: 09/16/2023 10:48 AM Ordering Location: [place] [address] Received: 09/16/2023 04:42 PM Pathologist: Tucker Mulligan V, MD Specimen: Lymph Node, Biopsy, left level 5 Performed By: #### S ####[facility] [id number] [address] [place] CLINICAL HISTORY history of lung ca Normal [facility] Comment on above: Order Comment: Speci men Type: TISSUE SPECIMENOrdering Facility: [facility] Address: [address] [place] [address] Performed By: #### S ####[facility] [id number] [address] [place] DIAGNOSIS COMMENT Normal [facility] Comment on above: Order Comment: Speci men Type: TISSUE SPECIMENOrdering Facility: [facility] Address: [address] [place] [address] Result Comment: Immu nohistochemical stains were performed [...] been determined by the performing laboratory within [facility]???s [facility] Pathology and Laboratory Medicine Department ([facility], [facility], [facility], [facility], [facility], [facility], or [facility]) in a manner consistent with CLIA requirements. One or more of these tests have not been cleared or approved by the FDA. [facility] is regulated under CLIA as qualified to perform high-complexity testing. These tests are used for clinical purposes. They should not be regarded as investigational or for research. Positive and negative controls stain appropriately. Performed By: #### S ####[facility] [id number] [address] OF [facility] FINAL DIAGNOSIS Normal [facility] Comment on above: Order Comment: Speci men Type: TISSUE SPECIMENOrdering Facility: [facility] Address: [address] [place] [address] Result Comment: Lymp h node, left level 5, biopsy: - Fragments of lymphoid tissue; negative for neoplasm (see comment). NE/ 09/17/2023 Performed By: #### S ####[facility]IA [id number] [address] OF [facility] FINAL PERFORMING LAB Normal [facility] Comment on above: Order Comment: Speci men Type: TISSUE SPECIMENOrdering Facility: [facility] Address: [address] [place] [address] Result Comment: Diag nostic interpretation performed at [facility], [address] [place] [address] CLIA# [id number] Sales And Service Advisor: Axel Romano M.D. Performed By: #### S ####[facility]IA [id number] [address] STATES OF [facility] GROSS DESCRIPTION Normal [facility] Comment on above: Order Comment: Speci men Type: TISSUE SPECIMENOrdering Facility: [facility] Address: [address] [place] [address] Result Comment: A. L ymph Node, Biopsy Received in formalin are multiple segments of cylindrical tissue 1.3 x 0.2 x 0.1 cm, carcamo and of a soft and friable consistency. Totally submitted in one cassette. Gross examination performed at [facility], [address] [place] [address] September 16, 2023 7:23 PM Performed By: #### S ####[facility] LABCLIA [id number] [place] [address] [place] US BIOPSY CERVICAL LYMPH NOD Archie 09-16-2023 US BIOPSY CERVICAL LYMPH NODE * * *Final Report* * * DATE OF EXAM: Sep 16 2023 2:45PM [facility] 2051 - US BIOPSY CERVICAL LYMPH NODE [...] lung cancer. STAFF RADIOLOGIST: Dr. Lopez Mcintyre ATTENDANT CAMPGROUND(S): None CONSENT: Informed consent was obtained for this procedure. Details of informed consent can be found in Psychiatric under the consent tab. TIME OUT: A [...] performed by the: attending radiologist, without an doctor assistant. The attending radiologist performed the following [...] IMPRESSION: ULTRASOUND GUIDED BIOPSY DESCRIBED v 05/25/18 Hose Tester: EVELYN Transcribe Date/Time: Sep 16 2023 4:33P Dictated by : KHUSHBOO MCINTYRE MD This examination was interpreted and the report reviewed and electronically signed by: KHUSHBOO MCINTYRE MD on Sep 20 2023 4:11PM EST [id number] Normal [facility] CBC panel Auto (Bld)on 09-13 Erythrocyte distribution width (RBC) [Ratio] 13.2 % Normal 11.5-15.0 [facility] Comment on above: Order Comment: Speci men Type: BLOOD SPECIMENOrdering Facility: [facility] Address: [address] [place] [address] Performed By: #### 5 8410-2 ####[facility] LABCLIA [id number] [place] [address] Hematocrit (Bld) [Volume fraction] 38.5 % Normal 36.0-46.0 [facility] Comment on above: Order Comment: Speci men Type: BLOOD SPECIMENOrdering Facility: [facility] Address: [address] [place] [address] Performed By: #### 5 8410-2 ####[facility]CLIA [id number] [place] [address] Hemoglobin (Bld) [Mass/Vol] 11.8 g/dL Normal 11.5-15.5 [facility] Comment on above: Order Comment: Speci men Type: BLOOD SPECIMENOrdering Facility: [facility] Address: [address] [place] [address] Performed By: #### 5 8410-2 ####[facility] LABCLIA [id number] [place] [address] MCH (RBC) [Entitic mass] 27.2 pg Normal 26.0-34.0 [facility] Comment on above: Order Comment: Speci men Type: BLOOD SPECIMENOrdering Facility: [facility] Address: [address] [place] [address] Performed By: #### 5 8410-2 ####[facility]CLIA [id number] [place] [address] MCHC (RBC) [Mass/Vol] 30.6 g/dL Normal 30.5-36.0 [facility] Comment on above: Order Comment: Speci men Type: BLOOD SPECIMENOrdering Facility: [facility] Address: [address] [place] [address] Performed By: #### 5 8410-2 ####[facility]CLIA [id number] [place] [address] MCV (RBC) [Entitic vol] 88.7 fL Normal 80.0-100.0 [facility] Comment on above: Order Comment: Speci men Type: BLOOD SPECIMENOrdering Facility: [facility] Address: [address] [place] [address] Performed By: #### 5 8410-2 ####[facility] LABIA [id number] [place] [address] Nucleated RBC (Bld) [#/Vol] 10*3/uL Normal <0.01 [facility] Comment on above: Order Comment: Speci men Type: BLOOD SPECIMENOrdering Facility: [facility] Address: [address] [place] [address] Performed By: #### 5 8410-2 ####[facility] LABIA [id number] [place] [address] Platelet mean volume (Bld) [Entitic vol] 8.9 fL Low 9.0-12.7 [facility] Comment on above: Order Comment: Speci men Type: BLOOD SPECIMENOrdering Facility: [facility] Address: [address] [place] [address] Performed By: #### 5 8410-2 ####[facility] LABIA [id number] [place] [address] Platelets (Bld) [#/Vol] 288 10*3/uL Normal 150-400 [facility] Comment on above: Order Comment: Speci men Type: BLOOD SPECIMENOrdering Facility: [facility] Address: [address] [place] [address] Performed By: #### 5 8410-2 ####[facility] LABCLIA [id number] [place] [address] RBC (Bld) [#/Vol] 4.34 10*6/uL Normal 3.90-5.20 [facility] Comment on above: Order Comment: Speci men Type: BLOOD SPECIMENOrdering Facility: [facility] Address: [address] [place] [address] Performed By: #### 5 8410-2 ####[facility] LABCLIA [id number] [place] [address] WBC (Bld) [#/Vol] 7.28 10*3/uL Normal 3.70-11.00 [facility] Comment on above: Order Comment: Speci men Type: BLOOD SPECIMENOrdering Facility: [facility] Address: [address] [place] [address] Performed By: #### 5 8410-2 ####[facility] LABCLIA [id number] [place] [address] NURSING PROGon 09-14-2023 NURSING PROG HNO ID: [id number] Author: YAKELIN ONOFRE LPN Service: ? Author Type: LICENSED NURSE Type: Nursing Progress Note Filed: 09/14/2023 10:55 Note Text: Pre- e instructions: Address: [facility] Toshia Zavaleta Contacted patient and confirmed appt. for biopsy scheduled on 09/16/23, at [facility]. Diet: Procedure to be done with local anesthetic, you may eat, drink and take medications as prescribed the day of this procedure. Medications: IF ok with your Prescribing Provider: RADIOLOGY RECOMMENDS THESE MEDICATION RESTRICTIONS : None Labs: Lab work needs to be drawn by 09/15/23 at any [facility]. Arrival: Please bring your Photo ID and Insurance Card. A general consent may need to be signed. Arrival at 8:30am to desk QB-1 ([facility]) and check in for your procedure. Gang Pusher/Transportation: Gang Pusher not necessary Written instructions provided to patient via Submitnet If you have any questions please call [phone] Normal [facility] CNPNon 09-08-2023 CNPN Telephone (IRRFV) CINTHIA GUERRERO ([id number]) 1960 F Date Time Provider Department 09/08/23 ABDI ISRAEL IRRFV During your visit today, we recorded the following information about you: Chloe Nicole 09/08/2023 10:45 AM Signed RADIOLOGY CALL CENTER INTAKE DATE: 09/08/2023 TIME: 10:44am REQUESTING STAFF: Abdi Israel MD PHONE/PAGER: [phone] SPECIFICS OF THE REQUEST:Cervical lymph node bx SPECIAL REQUESTS: TISSUE SAMPLE, LABWORK: N/A IS THIS REQUEST PART OF A RESEARCH PROTOCOL: No MEDICAL DIAGNOSIS: Malignant neoplasm of unspecified part of unspecified bronchus or lung (HCC) [C34.90] TYPE AND DATE OF THE EXAM THAT IS THE BASIS OF THE REQUEST: PET 09/01/2023 IMAGING: [facility] Note to all persons requesting biopsies: All biopsy requests will be scheduled as quickly as possible, based on the clinical urgency, availability of appointment times, the need to hold anti-thrombolytic therapy (aspirin, blood thinners) and the patient?s schedule, including the need for an available milk delivery driver. If a percutaneous biopsy or [...] this procedure: intermediate-high risk. Reference from [facility] Experience Design Director: [email or web address] STAFF SIGNATURE: Osito Galicia MD DATE: September [...] PEDIATRIC ASTHMA Inhale (more content not included)... [facility] CNPN Telephone (NCCAP) CINTHIA GUERRERO ([id number]) 1960 F Date Time Provider Department 09/08/23 ABDI ISRALE During your visit today, we recorded the following information about you: Rodney Rinaldi 09/08/2023 7:24 AM Signed Abdi Israel MD Graves, Ariana, LPN Cc: Silvia Jha RN; Rodney Rinaldi Please set Ms. Cesar up for an US guided biopsy of one of the lymph nodes in the neck seen on PET CT at either [facility] or [facility]. Thanks! Abdi Nicolas MD 09/08/2023 9:51 AM [...] Status:Closed by RODNEY RINALDI on 09/14/23 [facility] PET+CT Guidance for localiza tion of [...] any questions regarding this interpretation, please call [phone]. If you are unable to reach us at the number above, please feel free to contact [facility] eRadiology at [phone]. DIVISION OF RADIOLOGY * * *Final Report* [...] * Radiopharmaceutical Dose: 6.6 mCi * Radiopharmaceutical: P06-Lseceqcuavurphpsgd (FDG) COMPARISON: PET/CT 03/07/2022 CORRELATION: CT 08/13/23 RESULT: REFERENCES: SUV reference values: * Blood pool (descending aorta) activity: SUVmax 1.8 * Background liver activity: SUVmax 2.2; SUVmean 1.6 Digital Marketing Officer (topogram) images: No additional findings Notes and [...] No abnormal uptake. DIVISION OF RADIOLOGY Provider, [facility]/05/[facility] * * *Final Report* [...] * Radiopharmaceutical Dose: 6.6 mCi * Radiopharmaceutical: D94-Hbvjnnhtjodzqmvbjj (FDG) COMPARISON: PET/CT 03/07/2022 CORRELATION: CT 08/13/23 RESULT: REFERENCES: SUV reference values: * Blood pool (descending aorta) activity: SUVmax 1.8 * Background liver activity: SUVmax 2.2; SUVmean 1.6 Digital Marketing Officer (topogram) images: No additional findings Notes and [...] any questions regarding this interpretation, please call [phone]. If you are unable to reach us at the number above, please feel free to contact [facility] eRadiology at [phone]. [facility] PET+CT Guidance for localiza tion of tumor of Skull base to mid-thigh-- W 18F-FDG IVOrdered By: [facility] Provider on 09-05-2023 [facility] CONSULT PROGon 09-01-2023 CONSULT PROG HNO ID: [id number] Author: STACIA IRVING RN Service: ? Author [...] September 01, 2023 TIME: 12:54 PM [facility] GLUCOSE, BLOOD (POC)on 08-31 Glucose [Mass/Vol] 95 mg/dL 74 - 99 mg/dL [facility] Comment on above: Location:[facility], [address] [place] [address] , [place], [place], [facility] The Accu-Chek Inform II glucose meter [...] blood gas instrument) in the above situations. [facility] NM PET/CT SKULL-THIGH SUBQon 09-01-2023 RI PET/CT SKULL-THIGH SUBQ * * *Final Report* * * DATE OF EXAM: Sep 01 2023 2:00PM NRN 0063 - RI PET/CT SKULL-THIGH SUBQ / PROCEDURE REASON: Malignant [...] * Radiopharmaceutical Dose: 6.6 mCi * Radiopharmaceutical: F80-Gfshotkavflayjhujv (FDG) COMPARISON: PET/CT 03/07/2022 CORRELATION: CT 08/13/23 RESULT: REFERENCES: SUV reference values: * Blood pool (descending aorta) activity: SUVmax 1.8 * Background liver activity: SUVmax 2.2; SUVmean 1.6 Digital Marketing Officer (topogram) images: No additional findings Notes and [...] any questions regarding this interpretation, please call [phone]. If you are unable to reach us at the number above, please feel free to contact [facility] eRadiology at [phone]. [id number] [facility] PET+CT Guidance for localiza tion of tumor of Skull base to mid-thigh-- W 18F-FDG Angelita 09-01-2023 Radiology Study [facility]narrative[facility] CNPNon 08-14-2023 CNPN Telephone (RADTSA) CINTHIA GUERRERO ([id number]) 1960 F Date Time Provider Department 08/14/23 ABDI ISRAEL During your visit today, we recorded the following information about you: Silvia Jha RN 08/14/2023 9:34 AM Signed Pt called in to let us know she had a CT at [facility] ordered per Dr Kenyon yesterday. He called her today to let her know that there was something concerning and he wanted her to contact our office. CT report printed from [facility] and images requested. Dr Israel- please [...] lung (HCC) [C34.90] Order(s):NM PET/CT SKULL-THIGH SUBSEQUENT [[id number]] Order #: [id number] FUTURE Prescriptions as of 08/18/2023 - iv [...] Encounter Status:Closed by SILVIA JHA on 08/18/23 [facility] CNOVon 05-25-2023 CNOV Office Visit (RADTSA ) CINTHIA GUERRERO ([id number]) 1960 F Date Time Provider Department 05/25/23 [...] COPD, who is diagnosed with Stage IA3, tE6aL6P5, non-small cell lung cancer arising from a [...] remains on supplemental oxygen at 2 L/min vzosgx-ifh-hqzcm and continues on Pulmicort and albuterol rescue inhaler. He denies cough or hemoptysis or chest pain or difficulty swallowing today. She does note fatigue with stable appetite and hydration. 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 She had repeat CT imaging of the [...] which included preparing to see the patient, xckj-ey-mrfj patient care, and counseling and educating the patient/family/careg (more content not included)... [facility] CNPHiwot 05-20-2023 CNPN Telephone (W[employer]et[employer]A) CINTHIA GUERRERO ([id number]) 1960 F Date Time Provider Department 05/20/23 ABDI ISRAEL During your visit today, we recorded the following information about you: Silvia Jha RN 05/20/2023 9:55 AM Signed Pt called in and was admitted to [facility] last week. They did CT Chest. She has been waiting on insurance approval for a chest CT and will not need one now. She would like follow up arranged. Reports printed from [facility] and images requested. PSS- please call pt [...] left lung (HCC) [C34.9*04/07/2018 Encounter Status:Closed by ISLVIA JHA on 05/20/23 Normal [facility] Complete Blood Count Auto Di ffon 05-15-2023 Basophils (Bld) [#/Vol] 0.0 10*3/uL Normal 0.0-0.2 [facility] Comment on above: Result Comment: PERF ORMED BY: [place] [address] PATHOLOGIST PLASTICS SCIENTIST JASMEET LIN M.D. Performed By: #### C MP, CBC, HS TROP, TSH3 wRFLX #### [address] Basophils/100 WBC (Bld) 0.3 % Normal . T elin [facility] Comment on above: Performed By: #### C MP, CBC, HS TROP, TSH3 wRFLX #### [address] Eosinophils (Bld) [#/Vol] 0.0 10*3/uL Normal 0.0-0.45 [facility] Comment on above: Performed By: #### C MP, CBC, HS TROP, TSH3 wRFLX #### [address] Eosinophils/100 WBC (Bld) 0.0 % Normal . [facility] Comment on above: Performed By: #### C MP, CBC, HS TROP, TSH3 wRFLX #### [address] Erythrocyte distribution width (RBC) [Ratio] 13.5 % Normal 11.9-15.3 [facility] Comment on above: Performed By: #### C MP, CBC, HS TROP, TSH3 wRFLX #### [address] Hematocrit (Bld) [Volume fraction] 42.0 % Normal 34.0-46.4 [facility] Comment on above: Performed By: #### C MP, CBC, HS TROP, TSH3 wRFLX #### [address] Hemoglobin (Bld) [Mass/Vol] 13.9 g/dL Normal 11.8-15.4 [facility] Comment on above: Performed By: #### C MP, CBC, HS TROP, TSH3 wRFLX #### [address] Lymphocytes (Bld) [#/Vol] 0.6 10*3/uL Low 1.00-4.8 [facility] Comment on above: Performed By: #### C MP, CBC, HS TROP, TSH3 wRFLX #### [address] Lymphocytes/100 WBC (Bld) 8.4 % Normal . [facility] Comment on above: Performed By: #### C MP, CBC, HS TROP, TSH3 wRFLX #### [address] MCH (RBC) [Entitic mass] 28.0 pg Normal 24.7-34.3 [facility] Comment on above: Performed By: #### C MP, CBC, HS TROP, TSH3 wRFLX #### [address] MCV (RBC) [Entitic vol] 84.8 fL Normal 80-100 T [facility] Comment on above: Performed By: #### C MP, CBC, HS TROP, TSH3 wRFLX #### [address] Mean Corpuscular HGB Conc 33.0 g/dL Normal 32.0-35.0 [facility] Comment on above: Performed By: #### C MP, CBC, HS TROP, TSH3 wRFLX #### [address] Monocytes (Bld) [#/Vol] 0.4 10*3/uL Normal 0.0-0.8 [facility] Comment on above: Performed By: #### C MP, CBC, HS TROP, TSH3 wRFLX #### [address] Monocytes/100 WBC (Bld) 4.9 % Normal . T [facility] Comment on above: Performed By: #### C MP, CBC, HS TROP, TSH3 wRFLX #### [address] Neutrophils (Bld) [#/Vol] 6.6 10*3/uL Normal 1.8-7.7 [facility] Comment on above: Performed By: #### C MP, CBC, HS TROP, TSH3 wRFLX #### [address] Neutrophils/100 WBC (Bld) 86.4 % Normal . [facility] Comment on above: Performed By: #### C MP, CBC, HS TROP, TSH3 wRFLX #### [address] NRBC% 0.0 /100{WBC} Normal 0-0.5 [facility] Comment on above: Performed By: #### C MP, CBC, HS TROP, TSH3 wRFLX #### [address] Platelet mean volume (Bld) [Entitic vol] 7.3 fL Normal 6.3-10.7 [facility] Comment on above: Performed By: #### C MP, CBC, HS TROP, TSH3 wRFLX #### [place] [address] [place] Platelets (Bld) [#/Vol] 378 10*3/uL Normal 150-450 [facility] Comment on above: Performed By: #### C MP, CBC, HS TROP, TSH3 wRFLX #### [address] RBC (Bld) [#/Vol] 4.95 10*6/uL Normal 3.60-5.00 [facility] Comment on above: Performed By: #### C MP, CBC, HS TROP, TSH3 wRFLX #### [address] WBC (Bld) [#/Vol] 7.6 10*3/uL Normal 3.8-11.6 [facility] Comment on above: Performed By: #### C MP, CBC, HS TROP, TSH3 wRFLX #### [address] Comprehensive Metabolic Pane shelby 05-15-2023 Albumin [Mass/Vol] 4.0 g/dL Normal 3.5-5.7 [facility] Comment on above: Performed By: #### C MP, CBC, HS TROP, TSH3 wRFLX #### [address] Albumin/Globulin [Mass ratio] 1.3 {ratio} Normal [facility] Comment on above: Performed By: #### C MP, CBC, HS TROP, TSH3 wRFLX #### [address] ALP [Catalytic activity/Vol] 68 U/L Normal 34-104 [facility] Comment on above: Performed By: #### C MP, CBC, HS TROP, TSH3 wRFLX #### [address] ALT [Catalytic activity/Vol] 13 U/L Normal 7-52 [facility] Comment on above: Performed By: #### C MP, CBC, HS TROP, TSH3 wRFLX #### [address] Anion gap [Moles/Vol] 6.9 mmol/L Normal 6.0-15.0 [facility] Comment on above: Performed By: #### C MP, CBC, HS TROP, TSH3 wRFLX #### [address] AST [Catalytic activity/Vol] 16 U/L Normal 13-39 [facility] Comment on above: Performed By: #### C MP, CBC, HS TROP, TSH3 wRFLX #### [address] Bilirubin [Mass/Vol] 0.4 mg/dL Normal 0.3-1.0 [facility] Comment on above: Performed By: #### C MP, CBC, HS TROP, TSH3 wRFLX #### [address] Calcium [Mass/Vol] 9.7 mg/dL Normal 8.6-10.3 [facility] Comment on above: Performed By: #### C MP, CBC, HS TROP, TSH3 wRFLX #### [address] Chloride [Moles/Vol] 90 mmol/L Low 98-107 [facility] Comment on above: Performed By: #### C MP, CBC, HS TROP, TSH3 wRFLX #### [address] CO2 [Moles/Vol] 44.4 mmol/L High 21.0-31.0 [facility] Comment on above: Performed By: #### C MP, CBC, HS TROP, TSH3 wRFLX #### [address] Creatinine [Mass/Vol] 0.48 mg/dL Low 0.60-1.20 [facility] Comment on above: Performed By: #### C MP, CBC, HS TROP, TSH3 wRFLX #### [place] [address] [place] Creatinine Clr Calc Pharmacy 76.17 Normal [facility] Comment on above: Result Comment: PERF ORMED BY: [place] [address] PATHOLOGIST PLASTICS SCIENTIST JASMEET LIN M.D. Performed By: #### C MP, CBC, HS TROP, TSH3 wRFLX #### [place] [address] [place] GFR/1.73 sq M.predicted MDRD (S/P/Bld) [Vol rate/Area] mL/min/{1.73_m2} Normal [facility] Comment on above: Performed By: #### C MP, CBC, HS TROP, TSH3 wRFLX #### [address] Globulin (S) [Mass/Vol] 3.1 g/dL Normal T he [facility] Comment on above: Performed By: #### C MP, CBC, HS TROP, TSH3 wRFLX #### [address] Glucose [Mass/Vol] 148 mg/dL High 70-100 [facility] Comment on above: Result Comment: [facility] Glucose Reference Range is dependent on time and content of last meal. Glucose of more than 200 mg/dL in a nonstressed, ambulatory subject supports the diagnosis of Diabetes Mellitus. ADA recommended reference range Performed By: #### C MP, CBC, HS TROP, TSH3 wRFLX #### [address] Potassium [Moles/Vol] 4.3 mmol/L Normal 3.5-5.1 [facility] Comment on above: Performed By: #### C MP, CBC, HS TROP, TSH3 wRFLX #### [address] Protein [Mass/Vol] 7.1 g/dL Normal 6.4-8.9 [facility] Comment on above: Performed By: #### C MP, CBC, HS TROP, TSH3 wRFLX #### [address] Sodium [Moles/Vol] 137 mmol/L Normal 136-145 [facility] Comment on above: Performed By: #### C MP, CBC, HS TROP, TSH3 wRFLX #### [address] Urea nitrogen [Mass/Vol] 13 mg/dL Normal 7-25 [facility] Comment on above: Performed By: #### C MP, CBC, HS TROP, TSH3 wRFLX #### [address] angio chest PE protocolon 05-14-2023 CT angio chest PE protocol [facility] [place] [address] [place] [id number] Scan Report Signed Patient: Cinthia Guerrero MR#: [id number] 881 : 1960 Acct:[id number] Age/Sex: 62 / F ADM Date: 05/14/23 Loc: Room: [address] [place] [address] Type: ADM IN Attending Dr: Cassandra Andersen [...] M.D.05/14/2023 8:07 AM Dictation Location: [place] [address] Transcribed By: [facility] 05/14/23806 Dictated By: Wong Byrd DO 05/14/23 08 Signed By: 05/14/23806 Normal [facility] B-Type Natriuretic Peptideon 05-13-2023 Natriuretic peptide B (Bld) [Mass/Vol] 25.0 pg/mL Normal 5-100 [facility] Comment on above: Result Comment: PERF ORMED BY: [facility] [address] [place] [address] PATHOLOGIST PLASTICS SCIENTIST JASMEET LIN M.D. Performed By: #### B BELLMAN CAPTAIN #### [facility] [address] COVID-19 / Flu A/B / RSV [...] or Cepheid Disclaimer revoked sooner. PERFORMED BY: [place] [address] PATHOLOGIST PLASTICS SCIENTIST JASMEET LIN M.D. Normal [facility] Comment on above: Performed By: #### C MP, CBC, HS TROP, TSH3 wRFLX #### [address] Cepheid COVID PCR Negativeon 05-13-2023 SARS-CoV-2 (COVID-19) RNA KRUNAL+probe Ql (Unsp spec) Negative Normal Negative [facility] Comment on above: Result Comment: This is a duplicate Cepheid Xpert Xpress CoV-2/Flu/RSV Plus RNA by RT-PCR result to be used for statistical tracking purpose only. PERFORMED BY: [place] [address] PATHOLOGIST PLASTICS SCIENTIST JASMEET LIN M.D. Performed By: #### C MP, CBC, HS TROP, TSH3 wRFLX #### [address] Complete Blood Count Auto Di ffon 05-13-2023 Basophils (Bld) [#/Vol] 0.0 10*3/uL Normal 0.0-0.2 [facility] Comment on above: Result Comment: PERF ORMED BY: [place] [address] PATHOLOGIST PLASTICS SCIENTIST JASMEET LIN M.D. Performed By: #### C MP, CBC, HS TROP, TSH3 wRFLX #### [address] Basophils/100 WBC (Bld) 0.4 % Normal . T elin [facility] Comment on above: Performed By: #### C MP, CBC, HS TROP, TSH3 wRFLX #### [address] Eosinophils (Bld) [#/Vol] 0.0 10*3/uL Normal 0.0-0.45 [facility] Comment on above: Performed By: #### C MP, CBC, HS TROP, TSH3 wRFLX #### [address] Eosinophils/100 WBC (Bld) 0.1 % Normal . [facility] Comment on above: Performed By: #### C MP, CBC, HS TROP, TSH3 wRFLX #### [address] Erythrocyte distribution width (RBC) [Ratio] 13.5 % Normal 11.9-15.3 [facility] Comment on above: Performed By: #### C MP, CBC, HS TROP, TSH3 wRFLX #### [address] Hematocrit (Bld) [Volume fraction] 44.7 % Normal 34.0-46.4 [facility] Comment on above: Performed By: #### C MP, CBC, HS TROP, TSH3 wRFLX #### [address] Hemoglobin (Bld) [Mass/Vol] 14.9 g/dL Normal 11.8-15.4 [facility] Comment on above: Performed By: #### C MP, CBC, HS TROP, TSH3 wRFLX #### [address] Lymphocytes (Bld) [#/Vol] 1.4 10*3/uL Normal 1.00-4.8 [facility] Comment on above: Performed By: #### C MP, CBC, HS TROP, TSH3 wRFLX #### [address] Lymphocytes/100 WBC (Bld) 14.2 % Normal . [facility] Comment on above: Performed By: #### C MP, CBC, HS TROP, TSH3 wRFLX #### [address] MCH (RBC) [Entitic mass] 28.4 pg Normal 24.7-34.3 [facility] Comment on above: Performed By: #### C MP, CBC, HS TROP, TSH3 wRFLX #### [address] MCV (RBC) [Entitic vol] 85.1 fL Normal 80-100 [facility] Comment on above: Performed By: #### C MP, CBC, HS TROP, TSH3 wRFLX #### [address] Mean Corpuscular HGB Conc 33.4 g/dL Normal 32.0-35.0 [facility] Comment on above: Performed By: #### C MP, CBC, HS TROP, TSH3 wRFLX #### [address] Monocytes (Bld) [#/Vol] 0.8 10*3/uL Normal 0.0-0.8 [facility] Comment on above: Performed By: #### C MP, CBC, HS TROP, TSH3 wRFLX #### [address] Monocytes/100 WBC (Bld) 17.56 % Normal 0.00-20.00 [facility] Comment on above: Performed By: #### C MP, CBC, HS TROP, TSH3 wRFLX #### [address] Monocytes/100 WBC (Bld) 7.6 % Normal . [facility] Comment on above: Performed By: #### C MP, CBC, HS TROP, TSH3 wRFLX #### [address] Neutrophils (Bld) [#/Vol] 7.9 10*3/uL High 1.8-7.7 [facility] Comment on above: Performed By: #### C MP, CBC, HS TROP, TSH3 wRFLX #### [address] Neutrophils/100 WBC (Bld) 77.7 % Normal . [facility] Comment on above: Performed By: #### C MP, CBC, HS TROP, TSH3 wRFLX #### [address] NRBC% 0.1 /100{WBC} Normal 0-0.5 [facility] Comment on above: Performed By: #### C MP, CBC, HS TROP, TSH3 wRFLX #### [address] Platelet mean volume (Bld) [Entitic vol] 7.4 fL Normal 6.3-10.7 [facility] Comment on above: Performed By: #### C MP, CBC, HS TROP, TSH3 wRFLX #### [place] [address] [place] Platelets (Bld) [#/Vol] 405 10*3/uL Normal 150-450 [facility] Comment on above: Performed By: #### C MP, CBC, HS TROP, TSH3 wRFLX #### [place] [address] [place] RBC (Bld) [#/Vol] 5.25 10*6/uL High 3.60-5.00 [facility] Comment on above: Performed By: #### C MP, CBC, HS TROP, TSH3 wRFLX #### [place] [address] [place] WBC (Bld) [#/Vol] 10.2 10*3/uL Normal 3.8-11.6 [facility] Comment on above: Performed By: #### C MP, CBC, HS TROP, TSH3 wRFLX #### [address] Comprehensive Metabolic Pane [place] 05-13-2023 Albumin [Mass/Vol] 4.2 g/dL Normal 3.5-5.7 [facility] Comment on above: Performed By: #### C MP, CBC, HS TROP, TSH3 wRFLX #### [address] Albumin/Globulin [Mass ratio] 1.2 {ratio} Normal [facility] Comment on above: Performed By: #### C MP, CBC, HS TROP, TSH3 wRFLX #### [address] ALP [Catalytic activity/Vol] 79 U/L Normal 34-104 [facility] Comment on above: Performed By: #### C MP, CBC, HS TROP, TSH3 wRFLX #### [address] ALT [Catalytic activity/Vol] 15 U/L Normal 7-52 [facility] Comment on above: Performed By: #### C MP, CBC, HS TROP, TSH3 wRFLX #### [address] Anion gap [Moles/Vol] 12.3 mmol/L Normal 6.0-15.0 [facility] Comment on above: Performed By: #### C MP, CBC, HS TROP, TSH3 wRFLX #### [address] AST [Catalytic activity/Vol] 17 U/L Normal 13-39 [facility] Comment on above: Performed By: #### C MP, CBC, HS TROP, TSH3 wRFLX #### [place] [address] [place] Bilirubin [Mass/Vol] 0.3 mg/dL Normal 0.3-1.0 [facility] Comment on above: Performed By: #### C MP, CBC, HS TROP, TSH3 wRFLX #### [place] [address] [place] Calcium [Mass/Vol] 10.0 mg/dL Normal 8.6-10.3 [facility] Comment on above: Performed By: #### C MP, CBC, HS TROP, TSH3 wRFLX #### [address] Chloride [Moles/Vol] 89 mmol/L Low 98-107 [facility] Comment on above: Performed By: #### C MP, CBC, HS TROP, TSH3 wRFLX #### [address] CO2 [Moles/Vol] 41.7 mmol/L High 21.0-31.0 [facility] Comment on above: Performed By: #### C MP, CBC, HS TROP, TSH3 wRFLX #### [address] Creatinine [Mass/Vol] 0.47 mg/dL Low 0.60-1.20 [facility] Comment on above: Performed By: #### C MP, CBC, HS TROP, TSH3 wRFLX #### [address] Creatinine Clr Calc Pharmacy 80.11 Normal [facility] Comment on above: Result Comment: PERF ORMED BY: [place] [address] PATHOLOGIST PLASTICS SCIENTIST JASMEET LIN M.D. Performed By: #### C MP, CBC, HS TROP, TSH3 wRFLX #### [address] GFR/1.73 sq M.predicted MDRD (S/P/Bld) [Vol rate/Area] mL/min/{1.73_m2} Normal [facility] Comment on above: Performed By: #### C MP, CBC, HS TROP, TSH3 wRFLX #### [address] Globulin (S) [Mass/Vol] 3.5 g/dL Normal T he [facility] Comment on above: Performed By: #### C MP, CBC, HS TROP, TSH3 wRFLX #### [facility] [address] [place] [address] [place] Glucose [Mass/Vol] 104 mg/dL High 70-100 [facility] Comment on above: Result Comment: [place] Glucose Reference Range is dependent on time and content of last meal. Glucose of more than 200 mg/dL in a nonstressed, ambulatory subject supports the diagnosis of Diabetes Mellitus. ADA recommended reference range Performed By: #### C MP, CBC, HS TROP, TSH3 wRFLX #### [facility] [address] [place] [address] [place] Potassium [Moles/Vol] 4.0 mmol/L Normal 3.5-5.1 [facility] Comment on above: Performed By: #### C MP, CBC, HS TROP, TSH3 wRFLX #### [place] [id number] [place] Protein [Mass/Vol] 7.7 g/dL Normal 6.4-8.9 [facility] Comment on above: Performed By: #### C MP, CBC, HS TROP, TSH3 wRFLX #### [place] [address] [place] Sodium [Moles/Vol] 139 mmol/L Normal 136-145 [facility] Comment on above: Performed By: #### C MP, CBC, HS TROP, TSH3 wRFLX #### [place] [address] [place] Urea nitrogen [Mass/Vol] 13 mg/dL Normal 7-25 [facility] Comment on above: Performed By: #### C MP, CBC, HS TROP, TSH3 wRFLX #### [place] [address] [place] ECG 12 lead ECGon 05-13-2023 ECG 12 lead ECG [facility] [place] [address] [place] [address] Electrocardiograph Report Signed Patient: Cinthia Guerrero MR#: [id number] 881 : 1960 Acct:[id number] Age/Sex: 62 / F ADM Date: 05/13/23 [...] variant artifact Confirmed by Kd Carver DO ([id number]) on 05/13/2023 7:17:32 PM Referred By: Electronically Signed By:Kd Carver DO Transcribed By: MUS Signed By Kd Carver DO [id number] Normal [facility] Thyroid Stim Hormone w/Rflxo n 05-13-2023 Thyroid Stim Hormone w/Rflx 0.89 u[iU]/mL Normal 0.45-5.33 [facility] Comment on above: Result Comment: PERF ORMED BY: [place] [address] PATHOLOGIST PLASTICS SCIENTIST JASMEET LIN M.D. Performed By: #### C MP, CBC, HS TROP, TSH3 wRFLX #### [facility] [address] [place] [address] [place] Troponin I High Sensitivityo n 05-13-2023 Troponin I High Sensitivity 3.4 pg/mL Normal 0.0-15.0 [facility] Comment on above: Result Comment: PERF ORMED BY: [place] [address] PATHOLOGIST PLASTICS SCIENTIST JASMEET LIN M.D. Performed By: #### H S TROP #### [facility] [address] [place] [address] Troponin I High Sensitivity 3.9 pg/mL Normal 0.0-15.0 [facility] Comment on above: Result Comment: PERF ORMED BY: [place] [address] PATHOLOGIST PLASTICS SCIENTIST JASMEET LIN M.D. Performed By: #### C MP, CBC, HS TROP, TSH3 wRFLX #### [facility] [address] XR chest 2V*on 05-13-2023 XR chest 2V* [facility] [address] [place] [address] [place] [address] XRay Report Signed Patient: Cinthia Guerrero MR#: [id number] 881 : 1960 Acct:[id number] Age/Sex: 62 / F ADM Date: 05/13/23 Loc: ER Room: Type: [facility] ER Attending Dr: Copies to: Stacia [...] Wong Byrd M.D.05/13/2023 8:53 PM Dictation Location: [place] [address] Transcribed By: [facility] 05/13/232052 Dictated By: Wong Byrd DO 05/13/232051 Signed By: 05/13/232052 Normal [facility] CULTURE BLOODon 09-07-2022 Microscopic examination [...] F Trimethoprim/Sulfameth oxazole 20 S F Normal [facility] Comment on above: Performed By: #### B LDCX1 #### [facility] [address] [place] [address] Dr. Geri Pradhan CBC AUTO DIFFon 09-05-2022 BASO # 0.0 103/ul Normal 0.0-0.1 [facility] Comment on above: Performed By: #### C BC #### [facility] [address] [place] [address] Dr. Geri Pradhan Basophils/100 WBC (Bld) 0.2 % Normal 0.2-2.0 [facility] Comment on above: Performed By: #### C BC #### [facility] [address] [place] [address] Dr. Geri Pradhan EO # 0.0 103/ul Normal 0.0-0.7 [facility] Comment on above: Performed By: #### C BC #### [facility] [address] [place] [address] Dr. Geri Pradhan Eosinophils/100 WBC (Bld) 0.0 % Critically low 0.9-7.0 [facility] Comment on above: Performed By: #### C BC #### [facility] [address] [place] [address] Dr. Geri Pradhan Erythrocyte distribution width (RBC) [Ratio] 13.8 % Normal 11.0-15.0 [facility] Comment on above: Performed By: #### C BC #### [facility] [address] [place] [address] Dr. Geri Pradhan Hematocrit (Bld) [Volume fraction] 38.8 % Normal 36.0-48.0 [facility] Comment on above: Performed By: #### C BC #### [facility] [address] [place] [address] Dr. Geri Pradhan Hemoglobin (Bld) [Mass/Vol] 11.7 g/dL Critically low 12.0-16.0 [facility] Comment on above: Performed By: #### C BC #### [facility] [address] [place] [address] Dr. Geri Pradhan IG # 0.27 10e3/ul Critically high 0.00-0.03 [facility] Comment on above: Performed By: #### C BC #### [facility] [address] [place] [address] Dr. Geri Pradhan IG % 2.9 % Critically high 0.0-0.5 [facility] Comment on above: Performed By: #### C BC #### [facility] [address] [place] [address] Dr. Geri Pradhan LYMPH # 0.4 103/ul Critically low 1.2-3.8 [facility] Comment on above: Performed By: #### C BC #### [facility] [address] [place] [address] Dr. Geri Pradhan Lymphocytes/100 WBC (Bld) 4.4 % Critically low 20.5-60.0 [facility] Comment on above: Performed By: #### C BC #### [facility] [address] [place] [address] Dr. Geri Pradhan MANUAL DIFF REQ NO Normal [facility] Comment on above: Performed By: #### C BC #### [facility] [address] [place] [address] Dr. Geri Pradhan MCH (RBC) [Entitic mass] 26.8 pg Normal 26.7-34.0 [facility] Comment on above: Performed By: #### C BC #### [facility] [address] [place] [address] Dr. Geri Pradhan MCHC (RBC) [Mass/Vol] 30.2 g/dL Normal 29.9-35.2 [facility] Comment on above: Performed By: #### C BC #### [facility] [address] [place] [address] Dr. Geri Pradhan MCV (RBC) [Entitic vol] 88.8 fL Normal 81.0-99.0 [facility] Comment on above: Performed By: #### C BC #### [facility] [address] [place] [address] Dr. Geri Pradhan MONO # 0.3 103/ul Normal 0.3-0.8 [facility] Comment on above: Performed By: #### C BC #### [facility] [address] [place] [address] Dr. Geri Pradhan Monocytes/100 WBC (Bld) 3.6 % Normal 1.7-12.0 [facility] Comment on above: Performed By: #### C BC #### [facility] [address] [place] [address] Dr. Geri Pradhan NEUT # 8.2 103/ul Critically high 1.4-6.5 [facility] Comment on above: Performed By: #### C BC #### [facility] [address] [place] [address] Dr. Geri Pradhan Neutrophils/100 WBC (Bld) 88.9 % Critically high 43.0-75.0 [facility] Comment on above: Performed By: #### C BC #### [facility] [address] [place] [address] Dr. Geri Pradhan Platelet mean volume (Bld) [Entitic vol] 9.1 fL Critically low 9.5-13.5 [facility] Comment on above: Performed By: #### C BC #### [facility] [address] [place] [address] Dr. Geri Pradhan PLT 314 103/ul Normal 150-450 [facility] Comment on above: Performed By: #### C BC #### [facility] [address] [place] [address] Dr. Geri Pradhan RBC 4.37 106/ul Normal 4.20-5.40 [facility] Comment on above: Performed By: #### C BC #### [facility] [address] [place] [address] Dr. Geri Pradhan WBC 9.2 103/ul Normal 4.0-11.0 [facility] Comment on above: Performed By: #### C BC #### [facility] [address] [place] [address] Dr. Geri Pradhan PROF 14(COMP METB)on 023 Albumin [Mass/Vol] 2.7 g/dL Critically low 3.4-5.0 [facility] Comment on above: Performed By: #### Gerry INGRAM, CMP #### [facility] [address] [place] [address] Dr. Geri Pradhan Albumin/Globulin [Mass ratio] 0.7 {ratio} Normal [facility] Comment on above: Performed By: #### Gerry INGRAM, CMP #### [facility] [address] [place] [address] Dr. Geri Pradhan ALP [Catalytic activity/Vol] 65 U/L Normal 46-116 [facility] Comment on above: Performed By: #### Gerry INGRAM, CMP #### [facility] [address] [place] [address] Dr. Geri Pradhan ALT [Catalytic activity/Vol] 23 U/L Normal 14-59 [facility] Comment on above: Performed By: #### Gerry INGRAM, CMP #### [facility] [address] [place] [address] Dr. Geri Pradhan Anion gap [Moles/Vol] 2.0 mmol/L Normal [facility] Comment on above: Performed By: #### Gerry INGRAM, CMP #### [facility] [address] [place] [address] Dr. Geri Pradhan AST [Catalytic activity/Vol] 17 U/L Normal 15-37 [facility] Comment on above: Performed By: #### Gerry INGRAM, CMP #### [facility] [address] [place] [address] Dr. Geri Pradhan Bilirubin [Mass/Vol] 0.1 mg/dL Critically low 0.2-1.0 [facility] Comment on above: Performed By: #### Gerry INGRAM, CMP #### [facility] [address] [place] [address] Dr. Geri Pradhan Calcium [Mass/Vol] 9.0 mg/dL Normal 8.5-10.1 [facility] Comment on above: Performed By: #### Gerry INGRAM, CMP #### [facility] [address] [place] [address] Dr. Geri Pradhan Chloride [Moles/Vol] 99 mmol/L Normal 98-107 [facility] Comment on above: Performed By: #### Gerry INGRAM, CMP #### [facility] [address] [place] [address] Dr. Geri Pradhan CO2 [Moles/Vol] 45.3 mmol/L Critically high 21.0-32.0 [facility] Comment on above: Performed By: #### Gerry INGRAM, CMP #### [facility] [address] [place] [address] Dr. Geri Pradhan Creatinine [Mass/Vol] 0.50 mg/dL Critically low 0.55-1.02 [facility] Comment on above: Performed By: #### Gerry INGRAM, CMP #### [facility] [address] [place] [address] Dr. Geri Pradhan EGFR-AF [place] >60 Normal >=60 [facility] Comment on above: Performed By: #### Gerry INGRAM, CMP #### [facility] [address] [place] [address] Dr. Geri Pradhan EGFR-NON AF [place] >60 Normal >=60 [facility] Comment on above: Performed By: #### Gerry INGRAM, CMP #### [facility] [address] [place] [address] Dr. Geri Pradhan Globulin (S) [Mass/Vol] 3.7 g/dL Normal [facility] Comment on above: Performed By: #### Gerry INGRAM, CMP #### [facility] [address] [place] [address] Dr. Geri Pradhan Glucose [Mass/Vol] 180 mg/dL Critically high 74-106 [facility] Comment on above: Performed By: #### Gerry INGRAM, CMP #### [facility] [address] [place] [address] Dr. Geri Pradhan Potassium [Moles/Vol] 4.3 mmol/L Normal 3.5-5.1 [facility] Comment on above: Performed By: #### Gerry INGRAM, CMP #### [facility] [address] [place] [address] Dr. Geri Pradhan Protein [Mass/Vol] 6.4 g/dL Normal 6.4-8.2 [facility] Comment on above: Performed By: #### Gerry INGRAM, CMP #### [facility] [address] [place] [address] Dr. Geri Pradhan Sodium [Moles/Vol] 142 mmol/L Normal 136-145 [facility] Comment on above: Performed By: #### Gerry INGRAM, CMP #### [facility] [address] [place] [address] Dr. Geri Pradhan Urea nitrogen [Mass/Vol] 13.0 mg/dL Normal 7.0-18.0 [facility] Comment on above: Performed By: #### Gerry INGRAM, CMP #### [facility] [address] [place] [address] Dr. Geri Pradhan Urea nitrogen/Creatinine [Mass ratio] 26.0 mg/mg Normal [facility] Comment on above: Performed By: #### Gerry INGRAM, CMP #### [facility] [address] [place] [address] Dr. Geri Pradhan THEOPHYLLINEon 09-05-2022 THEOPHYLLINE <2.0 Critically low 10.0-20.0 [facility] Comment on above: Performed By: #### Gerry INGRAM, CMP #### [facility] [address] [place] [address] Dr. Geri Pradhan CBC AUTO DIFFon 09-04-2022 BASO # 0.0 103/ul Normal 0.0-0.1 [facility] Comment on above: Performed By: #### R SPLUS #### [facility] [address] [place] [address] Dr. Geri Pradhan Basophils/100 WBC (Bld) 0.1 % Critically low 0.2-2.0 [facility] Comment on above: Performed By: #### R SPLUS #### [facility] [address] [place] [address] Dr. Geri Pradhan EO # 0.0 103/ul Normal 0.0-0.7 [facility] Comment on above: Performed By: #### R SPLUS #### [facility] [address] [place] [address] Dr. Geri Pradhan Eosinophils/100 WBC (Bld) 0.0 % Critically low 0.9-7.0 [facility] Comment on above: Performed By: #### R SPLUS #### [facility] [address] [place] [address] Dr. Geri Pradhan Erythrocyte distribution width (RBC) [Ratio] 13.4 % Normal 11.0-15.0 [facility] Comment on above: Performed By: #### R SPLUS #### [facility] [address] [place] [address] Dr. Geri Pradhan Hematocrit (Bld) [Volume fraction] 42.8 % Normal 36.0-48.0 [facility] Comment on above: Performed By: #### R SPLUS #### [facility] [address] [place] [address] Dr. Geri Pradhan Hemoglobin (Bld) [Mass/Vol] 12.8 g/dL Normal 12.0-16.0 [facility] Comment on above: Performed By: #### R SPLUS #### [facility] [address] [place] [address] Dr. Geri Pradhan IG # 0.25 10e3/ul Critically high 0.00-0.03 [facility] Comment on above: Performed By: #### R SPLUS #### [facility] [address] [place] [address] Dr. Geri Pradhan IG % 2.0 % Critically high 0.0-0.5 [facility] Comment on above: Performed By: #### R SPLUS #### [facility] [address] [place] [address] Dr. Geri Pradhan LYMPH # 0.4 103/ul Critically low 1.2-3.8 [facility] Comment on above: Performed By: #### R SPLUS #### [facility] [address] [address] [address] Geri Pradhan Lymphocytes/100 WBC (Bld) 3.6 % Critically low 20.5-60.0 [facility] Comment on above: Performed By: #### R SPLUS #### [facility] [address] [address] [address] Geri Pradhan MANUAL DIFF REQ NO Normal [facility] Comment on above: Performed By: #### R SPLUS #### [facility] [address] [address] [address] Geri Pradhan MCH (RBC) [Entitic mass] 26.8 pg Normal 26.7-34.0 [facility] Comment on above: Performed By: #### R SPLUS #### [facility] [address] [place] [address] Dr. Geri Pradhan MCHC (RBC) [Mass/Vol] 29.9 g/dL Normal 29.9-35.2 [facility] Comment on above: Performed By: #### R SPLUS #### [facility] [address] [place] [address] Dr. Geri Pradhan MCV (RBC) [Entitic vol] 89.5 fL Normal 81.0-99.0 [facility] Comment on above: Performed By: #### R SPLUS #### [facility] [address] [place] [address] Dr. Geri Pradhan MONO # 0.2 103/ul Critically low 0.3-0.8 [facility] Comment on above: Performed By: #### R SPLUS #### [facility] [address] [place] [address] Dr. Geri Pradhan Monocytes/100 WBC (Bld) 1.9 % Normal 1.7-12.0 [facility] Comment on above: Performed By: #### R SPLUS #### [facility] [address] [place] [address] Dr. Geri Pradhan NEUT # 11.4 103/ul Critically high 1.4-6.5 [facility] Comment on above: Performed By: #### R SPLUS #### [facility] [address] [address] [address] Geri Pradhan Neutrophils/100 WBC (Bld) 92.4 % Critically high 43.0-75.0 [facility] Comment on above: Performed By: #### R SPLUS #### [facility] [address] [address] [address] Geri Pradhan Platelet mean volume (Bld) [Entitic vol] 8.9 fL Critically low 9.5-13.5 [facility] Comment on above: Performed By: #### R SPLUS #### [facility] [address] [address] [address] Geri Pradhan PLT 350 103/ul Normal 150-450 [facility] Comment on above: Performed By: #### R SPLUS #### [facility] [address] [address] [address] Geri Pradhan RBC 4.78 106/ul Normal 4.20-5.40 [facility] Comment on above: Performed By: #### R SPLUS #### [facility] [address] [address] [address] Geri Pradhan WBC 12.3 103/ul Critically high 4.0-11.0 [facility] Comment on above: Performed By: #### R SPLUS #### [facility] [address] [address] [address] Geri Pradhan POINT OF CARE GLUCOSEon 08-12 Glucose [Mass/Vol] 142 mg/dL Critically high 74-106 [facility] Comment on above: Performed By: #### P OCGLUC #### [facility] [address] [address] [address] Geri Pradhan Glucose [Mass/Vol] 198 mg/dL Critically high 74-106 [facility] Comment on above: Performed By: #### T JUAN JOSE, CMP #### [facility] [address] [address] [address] Geri Pradhan Glucose [Mass/Vol] 147 mg/dL Critically high -106 [facility] Comment on above: Performed By: #### Gerry INGRAM, CMP #### [facility] [address] [address] [address] Geri Pradhan PROF 14(COMP METB)on 023 Albumin [Mass/Vol] 2.9 g/dL Critically low 3.4-5.0 [facility] Comment on above: Performed By: #### Gerry INGRAM, CMP #### [facility] [address] [place] [address] Dr. Geri Pradhan Albumin/Globulin [Mass ratio] 0.7 {ratio} Normal [facility] Comment on above: Performed By: #### Gerry INGRAM, CMP #### [facility] [address] [place] [address] Dr. Geri Pradhan ALP [Catalytic activity/Vol] 73 U/L Normal 46-116 [facility] Comment on above: Performed By: #### Gerry INGRAM, CMP #### [facility] [address] [place] [address] Dr. Geri Pradhan ALT [Catalytic activity/Vol] 24 U/L Normal 14-59 [facility] Comment on above: Performed By: #### Gerry INGRAM, CMP #### [facility] [address] [place] [address] Dr. Geri Pradhan Anion gap [Moles/Vol] 3.2 mmol/L Normal [facility] Comment on above: Performed By: #### Gerry INGRAM, CMP #### [facility] [address] [place] [address] Dr. Geri Pradhan AST [Catalytic activity/Vol] 17 U/L Normal 15-37 [facility] Comment on above: Performed By: #### Gerry INGRAM, CMP #### [facility] [address] [place] [address] Dr. Geri Pradhan Bilirubin [Mass/Vol] 0.1 mg/dL Critically low 0.2-1.0 [facility] Comment on above: Performed By: #### Gerry INGRAM, CMP #### [facility] [address] [place] [address] Dr. Geri Pradhan Calcium [Mass/Vol] 9.4 mg/dL Normal 8.5-10.1 [facility] Comment on above: Performed By: #### Gerry INGRAM, CMP #### [facility] [address] [place] [address] Dr. Geri Pradhan Chloride [Moles/Vol] 100 mmol/L Normal 98-107 [facility] Comment on above: Performed By: #### Gerry INGRAM, CMP #### [facility] [address] [place] [address] Dr. Geri Pradhan CO2 [Moles/Vol] 43.2 mmol/L Critically high 21.0-32.0 [facility] Comment on above: Performed By: #### Gerry INGRAM, CMP #### [facility] [address] [place] [address] Dr. Geri Pradhan Creatinine [Mass/Vol] 0.52 mg/dL Critically low 0.55-1.02 [facility] Comment on above: Performed By: #### Gerry INGRAM, CMP #### [facility] [address] [place] [address] Dr. Geri Pradhan EGFR-AF [place] >60 Normal >=60 [facility] Comment on above: Performed By: #### Gerry INGRAM, CMP #### [facility] [address] [place] [address] Dr. Geri Pradhan EGFR-NON AF [place] >60 Normal >=60 [facility] Comment on above: Performed By: #### Gerry INGRAM, CMP #### [facility] [address] [place] [address] Dr. Geri Pradhan Globulin (S) [Mass/Vol] 4.2 g/dL Normal [facility] Comment on above: Performed By: #### Gerry INGRAM, CMP #### [facility] [address] [place] [address] Dr. Geri Pradhan Glucose [Mass/Vol] 138 mg/dL Critically high 74-106 [facility] Comment on above: Performed By: #### Gerry INGRAM, CMP #### [facility] [address] [place] [address] Dr. Geri Pradhan Potassium [Moles/Vol] 4.4 mmol/L Normal 3.5-5.1 [facility] Comment on above: Performed By: #### Gerry INGRAM CMP #### [facility] [address] [place] [address] Dr. Geri Pradhan Protein [Mass/Vol] 7.1 g/dL Normal 6.4-8.2 [facility] Comment on above: Performed By: #### Gerry INGRAM CMP #### [facility] [address] [place] [address] Dr. Geri Pradhan Sodium [Moles/Vol] 142 mmol/L Normal 136-145 [facility] Comment on above: Performed By: #### Gerry INGRAM CMP #### [facility] [address] [place] [address] Dr. Geri Pradhan Urea nitrogen [Mass/Vol] 15.0 mg/dL Normal 7.0-18.0 [facility] Comment on above: Performed By: #### Gerry INGRAM CMP #### [facility] [address] [place] [address] Dr. Geri Pradhan Urea nitrogen/Creatinine [Mass ratio] 28.8 mg/mg Normal [facility] Comment on above: Performed By: #### Gerry INGRAM CMP #### [facility] [address] [place] [address] Dr. Geri Pradhan RESPIRATORY PANEL PLUSon Adenovirus Not detected Normal NOT DETECTED [facility] Comment on above: Performed By: #### R SPLUS #### [facility] [address] [place] [address] Dr. Geri Joe. Parapertusis Not detected Normal NOT DETECTED [facility] Comment on above: Performed By: #### R SPLUS #### [facility] [address] [place] [address] Dr. Geri Joe. Pertussis Not detected Normal NOT DETECTED [facility] Comment on above: Performed By: #### R SPLUS #### [facility] [address] [place] [address] Dr. Geri Pradhan Chlamydia Pneumoniae Not detected Normal NOT DETECTED [facility] Comment on above: Performed By: #### R SPLUS #### [facility] [address] [place] [address] Dr. Geri Pradhan Coronavirus 229E Not detected Normal NOT DETECTED [facility] Comment on above: Performed By: #### R SPLUS #### [facility] [address] [place] [address] Dr. Geri Pradhan Coronavirus HKU1 Not detected Normal NOT DETECTED [facility] Comment on above: Performed By: #### R SPLUS #### [facility] [address] [place] [address] Dr. Geri Pradhan Coronavirus NL63 Not detected Normal NOT DETECTED [facility] Comment on above: Performed By: #### R SPLUS #### [facility] [address] [place] [address] Dr. Geri Pradhan Coronavirus OC43 Not detected Normal NOT DETECTED [facility] Comment on above: Performed By: #### R SPLUS #### [facility] [address] [place] [address] Dr. Geri Pradhan Influenza A H1 Not detected Normal NOT DETECTED [facility] Comment on above: Performed By: #### R SPLUS #### [facility] [address] [place] [address] Dr. Geri Pradhan Influenza A H1 2009 Not detected Normal NOT DETECTED [facility] Comment on above: Performed By: #### R SPLUS #### [facility] [address] [place] [address] Dr. Geri Pradhan Influenza A H3 Not detected Normal NOT DETECTED [facility] Comment on above: Performed By: #### R SPLUS #### [facility] [address] [place] [address] Dr. Geri Pradhan Influenza B Not detected Normal NOT DETECTED [facility] Comment on above: Performed By: #### R SPLUS #### [facility] [address] [place] [address] Dr. Geri Pradhan Metapneumovirus Not detected Normal NOT DETECTED [facility] Comment on above: Performed By: #### R SPLUS #### [facility] [address] [place] [address] Dr. Geri Pradhan Mycoplas. Pneumoniae Not detected Normal NOT DETECTED [facility] Comment on above: Performed By: #### R SPLUS #### [facility] [address] [place] [address] Dr. Geri Pradhan Parainfluenza 1 Not detected Normal NOT DETECTED [facility] Comment on above: Performed By: #### R SPLUS #### [facility] [address] [place] [address] Dr. Geri Pradhan Parainfluenza 2 Not detected Normal NOT DETECTED [facility] Comment on above: Performed By: #### R SPLUS #### [facility] [address] [place] [address] Dr. Geri Pradhan Parainfluenza 3 Detected Abnormal NOT DETECTED [facility] Comment on above: Performed By: #### R SPLUS #### [facility] [address] [place] [address] Dr. Geri Pradhan Parainfluenza 4 Not detected Normal NOT DETECTED [facility] Comment on above: Performed By: #### R SPLUS #### [facility] [address] [place] [address] Dr. Geri Pradhan Rhino/Enterovirus Not detected Normal NOT DETECTED [facility] Comment on above: Performed By: #### R SPLUS #### [facility] [address] [place] [address] Dr. Geri Pradhan RP2 Header 1 RESPIRATORY PANEL: VIRUSES Normal [facility] Comment on above: Performed By: #### R SPLUS #### [facility] [address] [place] [address] Dr. Geri Pradhan RP2 Header 2 RESPIRATORY PANEL: BACTERIA Normal [facility] Comment on above: Performed By: #### R SPLUS #### [facility] [address] [place] [address] Dr. Geri Pradhan RSV Not detected Normal NOT DETECTED [facility] Comment on above: Performed By: #### R SPLUS #### [facility] [address] [place] [address] Dr. Geri Pradhan SARS-CoV-2 (COVID-19) RNA KRUNAL+probe Ql (Unsp spec) Not detected Normal NOT DETECTED [facility] Comment on above: Performed By: #### R SPLUS #### [facility] [address] [place] [address] Dr. Geri Pradhan THEOPHYLLINEon 09-04-2022 THEOPHYLLINE <2.0 Critically low 10.0-20.0 [facility] Comment on above: Performed By: #### T JUAN JOSE, CMP #### [facility] [address] [place] [address] Dr. Geri Pradhan CBC AUTO DIFFon 09-03-2022 BASO # 0.0 103/ul Normal 0.0-0.1 [facility] Comment on above: Performed By: #### P OCGLUC #### [facility] [address] [place] [address] Dr. Geri Pradhan Basophils/100 WBC (Bld) 0.1 % Critically low 0.2-2.0 [facility] Comment on above: Performed By: #### P OCGLUC #### [facility] [address] [place] [address] Dr. Geri Pradhan EO # 0.0 103/ul Normal 0.0-0.7 [facility] Comment on above: Performed By: #### P OCGLUC #### [facility] [address] [place] [address] Dr. Geri Pradhan Eosinophils/100 WBC (Bld) 0.0 % Critically low 0.9-7.0 [facility] Comment on above: Performed By: #### P OCGLUC #### [facility] [address] [place] [address] Dr. Geri Pradhan Erythrocyte distribution width (RBC) [Ratio] 13.0 % Normal 11.0-15.0 [facility] Comment on above: Performed By: #### P OCGLUC #### [facility] [address] [place] [address] Dr. Geri Pradhan Hematocrit (Bld) [Volume fraction] 42.1 % Normal 36.0-48.0 [facility] Comment on above: Performed By: #### P OCGLUC #### [facility] [address] [address] [address] Geri Pradhan Hemoglobin (Bld) [Mass/Vol] 12.3 g/dL Normal 12.0-16.0 [facility] Comment on above: Performed By: #### P OCGLUC #### [facility] [address] [address] [address] Geri Pradhan IG # 0.13 10e3/ul Critically high 0.00-0.03 [facility] Comment on above: Performed By: #### P OCGLUC #### [facility] [address] [address] [address] Geri Pradhan IG % 1.2 % Critically high 0.0-0.5 [facility] Comment on above: Performed By: #### P OCGLUC #### [facility] [address] [place] [address] Dr. Geri Pradhan LYMPH # 0.6 103/ul Critically low 1.2-3.8 [facility] Comment on above: Performed By: #### P OCGLUC #### [facility] [address] [place] [address] Dr. Geri Pradhan Lymphocytes/100 WBC (Bld) 6.0 % Critically low 20.5-60.0 [facility] Comment on above: Performed By: #### P OCGLUC #### [facility] [address] [place] [address] Dr. Geri Pradhan MANUAL DIFF REQ NO Normal [facility] Comment on above: Performed By: #### P OCGLUC #### [facility] [address] [place] [address] Dr. Geri Pradhan MCH (RBC) [Entitic mass] 26.0 pg Critically low 26.7-34.0 [facility] Comment on above: Performed By: #### P OCGLUC #### [facility] [address] [place] [address] Dr. Geri Pradhan MCHC (RBC) [Mass/Vol] 29.2 g/dL Critically low 29.9-35.2 [facility] Comment on above: Performed By: #### P OCGLUC #### [facility] [address] [address] [address] Geri Pradhan MCV (RBC) [Entitic vol] 89.0 fL Normal 81.0-99.0 [facility] Comment on above: Performed By: #### P OCGLUC #### [facility] [address] [address] [address] Geri Pradhan MONO # 0.2 103/ul Critically low 0.3-0.8 [facility] Comment on above: Performed By: #### P OCGLUC #### [facility] [address] [address] [address] Geri Pradhan Monocytes/100 WBC (Bld) 2.0 % Normal 1.7-12.0 [facility] Comment on above: Performed By: #### P OCGLUC #### [facility] [address] [place] [address] Dr. Geri Pradhan NEUT # 9.6 103/ul Critically high 1.4-6.5 [facility] Comment on above: Performed By: #### P OCGLUC #### [facility] [address] [place] [address] Dr. Geri Pradhan Neutrophils/100 WBC (Bld) 90.7 % Critically high 43.0-75.0 [facility] Comment on above: Performed By: #### P OCGLUC #### [facility] [address] [place] [address] Dr. Geri Pradhan Platelet mean volume (Bld) [Entitic vol] 9.1 fL Critically low 9.5-13.5 [facility] Comment on above: Performed By: #### P OCGLUC #### [facility] [address] [place] [address] Dr. Geri Pradhan PLT 302 103/ul Normal 150-450 [facility] Comment on above: Performed By: #### P OCGLUC #### [facility] [address] [place] [address] Dr. Geri Pradhan RBC 4.73 106/ul Normal 4.20-5.40 [facility] Comment on above: Performed By: #### P OCGLUC #### [facility] [address] [address] [address] Geri Pradhan WBC 10.6 103/ul Normal 4.0-11.0 [facility] Comment on above: Performed By: #### P OCGLUC #### [facility] [address] [address] [address] Geri Pradhan POINT OF CARE GLUCOSEon 08-12 Glucose [Mass/Vol] 130 mg/dL Critically high [facility]106 [facility] Comment on above: Performed By: #### T JUAN JOSE, CMP #### [facility] [address] [address] [address] Geri Pradhan Glucose [Mass/Vol] 217 mg/dL Critically high [address] [place] [address] Comment on above: Performed By: #### T JUAN JOSE, CMP #### [facility] [address] [address] [address] Geri Pradhan Glucose [Mass/Vol] 327 mg/dL Critically high [address] [place] [address] Comment on above: Performed By: #### C VDTBH #### [facility] [address] [address] [address] Geri Pradhan Glucose [Mass/Vol] 146 mg/dL Critically high [address] [place] [address] Comment on above: Performed By: #### T JUAN JOSE, CMP #### [facility] [address] [address] [address] Geri Pradhan Glucose [Mass/Vol] 174 mg/dL Critically high [facility]106 [facility] Comment on above: Performed By: #### T JUAN JOSE, CMP #### [facility] [address] [address] [address] Geri Pradhan PROF 14(COMP METB)on 023 Albumin [Mass/Vol] 2.9 g/dL Critically low 3.4-5.0 [facility] Comment on above: Performed By: #### P OCGLUC #### [facility] [address] [address] [address] Geri Pradhan Albumin/Globulin [Mass ratio] 0.7 {ratio} Normal [facility] Comment on above: Performed By: #### P OCGLUC #### [facility] [address] [address] [address] Geri Pradhan ALP [Catalytic activity/Vol] 74 U/L Normal 46-116 [facility] Comment on above: Performed By: #### P OCGLUC #### [facility] [address] [address] [address] Geri Pradhan ALT [Catalytic activity/Vol] 21 U/L Normal 14-59 [facility] Comment on above: Performed By: #### P OCGLUC #### [facility] [address] [address] [address] Geri Pradhan Anion gap [Moles/Vol] 4.4 mmol/L Normal [facility] Comment on above: Performed By: #### P OCGLUC #### [facility] [address] [place] [address] Dr. Geri Pradhan AST [Catalytic activity/Vol] 17 U/L Normal 15-37 [facility] Comment on above: Performed By: #### P OCGLUC #### [facility] [address] [address] [address] Geri Pradhan Bilirubin [Mass/Vol] 0.2 mg/dL Normal 0.2-1.0 [facility] Comment on above: Performed By: #### P OCGLUC #### [facility] [address] [address] [address] Geri Pradhan Calcium [Mass/Vol] 9.4 mg/dL Normal 8.5-10.1 [facility] Comment on above: Performed By: #### P OCGLUC #### [facility] [address] [address] [address] Geri Pradhan Chloride [Moles/Vol] 99 mmol/L Normal 98-107 [facility] Comment on above: Performed By: #### P OCGLUC #### [facility] [address] [address] [address] Geri Pradhan CO2 [Moles/Vol] 42.8 mmol/L Critically high 21.0-32.0 [facility] Comment on above: Performed By: #### P OCGLUC #### [facility] [address] [address] [address] Geri Pradhan Creatinine [Mass/Vol] 0.55 mg/dL Normal 0.55-1.02 [facility] Comment on above: Performed By: #### P OCGLUC #### [facility] [address] [address] [address] Geri Pradhan EGFR-AF [place] >60 Normal >=60 [facility] Comment on above: Performed By: #### P OCGLUC #### [facility] [address] [address] [address] Geri Pradhan EGFR-NON AF [place] >60 Normal >=60 [facility] Comment on above: Performed By: #### P OCGLUC #### [facility] [address] [address] [address] Geri Pradhan Globulin (S) [Mass/Vol] 4.4 g/dL Normal [facility] Comment on above: Performed By: #### P OCGLUC #### [facility] [address] [address] [address] Geri Pradhan Glucose [Mass/Vol] 136 mg/dL Critically high 74-106 [facility] Comment on above: Performed By: #### P OCGLUC #### [facility] [address] [place] [address] Dr. Geri Pradhan Potassium [Moles/Vol] 4.2 mmol/L Normal 3.5-5.1 [facility] Comment on above: Performed By: #### P OCGLUC #### [facility] [address] [address] [address] Geri Pradhan Protein [Mass/Vol] 7.3 g/dL Normal 6.4-8.2 [facility] Comment on above: Performed By: #### P OCGLUC #### [facility] [address] [place] [address] Dr. Geri Pradhan Sodium [Moles/Vol] 142 mmol/L Normal 136-145 [facility] Comment on above: Performed By: #### P OCGLUC #### [facility] [address] [address] [address] Geri Pradhan Urea nitrogen [Mass/Vol] 14.0 mg/dL Normal 7.0-18.0 [facility] Comment on above: Performed By: #### P OCGLUC #### [facility] [address] [place] [address] Dr. Geri Pradhan Urea nitrogen/Creatinine [Mass ratio] 25.5 mg/mg Normal [facility] Comment on above: Performed By: #### P OCGLUC #### [facility] [address] [address] [address] Geri Pradhan THEOPHYLLINEon 09-03-2022 THEOPHYLLINE <2.0 Critically low 10.0-20.0 [facility] Comment on above: Performed By: #### P OCGLUC #### [facility] [address] [place] [address] Dr. Geri Pradhan MAGNESIUMon 09-02-2022 Magnesium [Mass/Vol] 2.3 mg/dL Normal 1.8-2.4 [facility] Comment on above: Performed By: #### T JUAN JOSE, CMP #### [facility] [address] [address] [address] Geri Pradhan POINT OF CARE GLUCOSEon 08-12 Glucose [Mass/Vol] 118 mg/dL Critically high [facility]106 [facility] Comment on above: Performed By: #### R SPLUS #### [facility] [address] [place] [address] Dr. Geri Pradhan Glucose [Mass/Vol] 263 mg/dL Critically high -106 [facility] Comment on above: Performed By: #### R SPLUS #### [facility] [address] [place] [address] Dr. Geri Pradhan Glucose [Mass/Vol] 160 mg/dL Critically high -106 [facility] Comment on above: Performed By: #### P OCGLUC #### [facility] [address] [place] [address] Dr. Geri Pradhan PROF CHEM 8 (BAS METB)on Anion gap [Moles/Vol] 5.3 mmol/L Normal [facility] Comment on above: Performed By: #### Gerry INGRAM, CMP #### [facility] [address] [address] [address] Geri Pradhan Calcium [Mass/Vol] 9.5 mg/dL Normal 8.5-10.1 [facility] Comment on above: Performed By: #### Gerry INGRAM, CMP #### [facility] [address] [address] [address] Geri Pradhan Chloride [Moles/Vol] 94 mmol/L Critically low 98-107 [facility] Comment on above: Performed By: #### Gerry INGRAM, CMP #### [facility] [address] [address] [address] Geri Pradhan CO2 [Moles/Vol] 42.5 mmol/L Critically high 21.0-32.0 [facility] Comment on above: Performed By: #### Gerry INGRAM, CMP #### [facility] [address] [place] [address] Dr. Geri Pradhan Creatinine [Mass/Vol] 0.66 mg/dL Normal 0.55-1.02 [facility] Comment on above: Performed By: #### Gerry INGRAM, CMP #### [facility] [address] [place] [address] Dr. Geri Pradhan EGFR-AF [place] >60 Normal >=60 [facility] Comment on above: Performed By: #### Gerry INGRAM, CMP #### [facility] [address] [place] [address] Dr. Geri Pradhan EGFR-NON AF [place] >60 Normal >=60 [facility] Comment on above: Performed By: #### Gerry INGRAM, CMP #### [facility] [address] [address] [address] Geri Pradhan Glucose [Mass/Vol] 183 mg/dL Critically high 74-106 [facility] Comment on above: Performed By: #### Gerry INGRAM, CMP #### [facility] [address] [place] [address] Dr. Geri Pradhan Potassium [Moles/Vol] 3.8 mmol/L Normal 3.5-5.1 [facility] Comment on above: Performed By: #### Gerry INGRAM, CMP #### [facility] [address] [place] [address] Dr. Geri Pradhan Sodium [Moles/Vol] 138 mmol/L Normal 136-145 [facility] Comment on above: Performed By: #### Gerry INGRAM, CMP #### [facility] [address] [place] [address] Dr. Geri Pradhan Urea nitrogen [Mass/Vol] 10.0 mg/dL Normal 7.0-18.0 [facility] Comment on above: Performed By: #### Gerry INGRAM, CMP #### [facility] [address] [place] [address] Dr. Geri Pradhan Urea nitrogen/Creatinine [Mass ratio] 15.2 mg/mg Normal [facility] Comment on above: Performed By: #### Gerry INGRAM, CMP #### [facility] [address] [place] [address] Dr. Geri Pradhan THEOPHYLLINEon 09-02-2022 THEOPHYLLINE <2.0 Critically low 10.0-20.0 [facility] Comment on above: Performed By: #### R SPLUS #### [facility] [address] [place] [address] Dr. Geri Pradhan BLOOD CULTURE ID PANELon A. baumannii Not detected Normal NOT DETECTED [facility] Comment on above: Performed By: #### Gerry INGRAM, CMP #### [facility] [address] [place] [address] Dr. Geri Pradhan Bacteriodes fragilis Not detected Normal NOT DETECTED [facility] Comment on above: Performed By: #### Gerry INGRAM, CMP #### [facility] [address] [place] [address] Dr. Geri Pradhan BCID CONTROLS PASSED Normal [facility] Comment on above: Performed By: #### Gerry INGRAM, CMP #### [facility] [address] [place] [address] Dr. Geri Pradhan BCIDBTHD BLOOD CULTURE BOTTLE INFORMATION Normal [facility] Comment on above: Performed By: #### Gerry INGRAM, CMP #### [facility] [address] [address] [address] Geri Pradhan BCIDHD1 ANTIMICROBIAL RESISTANCE GENES Normal [facility] Comment on above: Performed By: #### Gerry INGRAM, CMP #### [facility] [address] [address] [address] Geri Pradhan BCIDHD2 SEE BELOW [facility] Comment on above: Result Comment: Note : Antimicrobial resitance can occur via multiple mechanisms. A Not Detected result for the [employer] antomicrobial resistance gene assays does not indicate antimicrobial susceptibility. Subculturing is required for species identification and susceptibility testing of isolates. Performed By: #### Gerry INGRAM, CMP #### [facility] [address] [address] [address] Geri Pradhan BCIDHD3 Positive [facility] Comment on above: Performed By: #### Gerry INGRAM, CMP #### [facility] [address] [address] [address] Geri Pradhan BCIDHD4 Negative Normal [facility] Comment on above: Performed By: #### Gerry INGRAM, CMP #### [facility] [address] [address] [address] Geri Pradhan BCIDHD5 YEAST Normal [facility] Comment on above: Performed By: #### Gerry INGRAM, CMP #### [facility] [address] [address] [address] Geri Pradhan Bottle Set: Set 1 Normal [facility] Comment on above: Performed By: #### Gerry INGRAM, CMP #### [facility] [address] [address] [address] Geri Pradhan Bottle: Aerobic Normal [facility] Comment on above: Performed By: #### Gerry INGRAM, CMP #### [facility] [address] [address] [address] Geri Pradhan C. neoformans/gattii Not detected Normal NOT DETECTED [facility] Comment on above: Performed By: #### Gerry INGRAM, CMP #### [facility] [address] [address] [address] Geri Pradhan Milagros albicans Not detected Normal NOT DETECTED [facility] Comment on above: Performed By: #### T JUAN JOSE, CMP #### [facility] [address] [address] [address] Geri Pradhan Milagros auris Not detected Normal NOT DETECTED [facility] Comment on above: Performed By: #### T JUAN JOSE, CMP #### [facility] [address] [place] [address] Dr. Geri Pradhan Milagros glabrata Not detected Normal NOT DETECTED [facility] Comment on above: Performed By: #### T JUAN JOSE, CMP #### [facility] [address] [place] [address] Dr. Geri Pradhan Milagros Krusei Not detected Normal NOT DETECTED [facility] Comment on above: Performed By: #### T JUAN JOSE, CMP #### [facility] [address] [place] [address] Dr. Geri Pradhan Milagros Parapsilosis Not detected Normal NOT DETECTED [facility] Comment on above: Performed By: #### Gerry INGRAM, CMP #### [facility] [address] [place] [address] Dr. Geri Pradhan Milagros Tropicalis Not detected Normal NOT DETECTED [facility] Comment on above: Performed By: #### T JUAN JOSE, CMP #### [facility] [address] [place] [address] Dr. Geri Pradhan CTX-M Resistant Gene Not Applicable Normal NOT DETECTE D [facility] Comment on above: Performed By: #### T JUAN JOSE, CMP #### [facility] [address] [place] [address] Dr. Geri Pradhan E. Cloacae complex Not detected Normal NOT DETECTED [facility] Comment on above: Performed By: #### T JUAN JOSE, CMP #### [facility] [address] [place] [address] Dr. Geri Pradhan E. faecalis Not detected Normal NOT DETECTED [facility] Comment on above: Performed By: #### T JUAN JOSE, CMP #### [facility] [address] [place] [address] Dr. Geri Pradhan E. faecium Not detected Normal NOT DETECTED [facility] Comment on above: Performed By: #### Gerry INGRAM, CMP #### [facility] [address] [place] [address] Dr. Geri Pradhan Enterobacteriaceae Not detected Normal NOT DETECTED [facility] Comment on above: Performed By: #### Gerry INGRAM, CMP #### [facility] [address] [place] [address] Dr. Geri Pradhan Escherichia coli Not detected Normal NOT DETECTED [facility] Comment on above: Performed By: #### Gerry INGRAM, CMP #### [facility] [address] [place] [address] Dr. Geri Pradhan H. influenzae Not detected Normal NOT DETECTED [facility] Comment on above: Performed By: #### Gerry INGRAM, CMP #### [facility] [address] [place] [address] Dr. Geri Pradhan IMP Resistant Gene Not Applicable Normal NOT DETECTED [facility] Comment on above: Performed By: #### Gerry INGRAM, CMP #### [facility] [address] [place] [address] Dr. Geri Pradhan K. oxytoca Not detected Normal NOT DETECTED [facility] Comment on above: Performed By: #### Gerry INGRAM, CMP #### [facility] [address] [place] [address] Dr. Geri Pradhan K. pneumoniae Not detected Normal NOT DETECTED [facility] Comment on above: Performed By: #### Gerry INGRAM, CMP #### [facility] [address] [place] [address] Dr. Geri Pradhan Klebsiella aerogenes Not detected Normal NOT DETECTED [facility] Comment on above: Performed By: #### Gerry INGRAM, CMP #### [facility] [address] [place] [address] Dr. Geri Pradhan KPC Resistant Gene Not Applicable Normal NOT DETECTED [facility] Comment on above: Performed By: #### Gerry INGRAM, CMP #### [facility] [address] [place] [address] Dr. Geri Pradhan List. monocytogenes Not detected Normal NOT DETECTED [facility] Comment on above: Performed By: #### Gerry INGRAM, CMP #### [facility] [address] [place] [address] Dr. Geri Pradhan Mcr-1 Resistant Gene Not Applicable Normal NOT DETECTE D [facility] Comment on above: Performed By: #### T JUAN JOSE, CMP #### [facility] [address] [place] [address] Dr. Geri Pradhan mecA/C Detected Abnormal NOT DETECTED [facility] Comment on above: Performed By: #### T JUAN JOSE, CMP #### [facility] [address] [place] [address] Dr. Geri Pradhan mecA/C MREJ Not Applicable Normal NOT DETECTED [facility] Comment on above: Performed By: #### Gerry INGRAM, CMP #### [facility] [address] [place] [address] Dr. Geri Pradhan N. meningitidis Not detected Normal NOT DETECTED [facility] Comment on above: Performed By: #### Gerry INGRAM, CMP #### [facility] [address] [place] [address] Dr. Geri Pradhan NDM Resistant Gene Not Applicable Normal NOT DETECTED [facility] Comment on above: Performed By: #### Gerry INGRAM, CMP #### [facility] [address] [place] [address] Dr. Geri Pradhan Oxa-48-like Not Applicable Normal NOT DETECTED [facility] Comment on above: Performed By: #### Gerry INGRAM, CMP #### [facility] [address] [place] [address] Dr. Geri Pradhan Proteus Not detected Normal NOT DETECTED [facility] Comment on above: Performed By: #### Gerry INGRAM, CMP #### [facility] [address] [place] [address] Dr. Geri Pradhan Pseud. aeruginosa Not detected Normal NOT DETECTED [facility] Comment on above: Performed By: #### Gerry INGRAM, CMP #### [facility] [address] [place] [address] Dr. Geri Pradhan S. maltophilia Not detected Normal NOT DETECTED [facility] Comment on above: Performed By: #### Gerry INGRAM, CMP #### [facility] [address] [address] [address] Geri Pradhan Salmonella Not detected Normal NOT DETECTED [facility] Comment on above: Performed By: #### T JUAN JOSE, CMP #### [facility] [address] [address] [address] Geri Pradhan Seratia marcescens Not detected Normal NOT DETECTED [facility] Comment on above: Performed By: #### T JUAN JOSE, CMP #### [facility] [address] [address] [address] Geri Pradhan Site: Right AC Normal [facility] Comment on above: Performed By: #### T JUAN JOSE, CMP #### [facility] [address] [address] [address] Geri Pradhan Stapwilliam. aureus Not detected Normal NOT DETECTED [facility] Comment on above: Performed By: #### Gerry INGRAM, CMP #### [facility] [address] [place] [address] Dr. Geri Pradhan Stapwilliam. epidermidis Detected Critically abnormal NOT DETECTED [facility] Comment on above: Performed By: #### Gerry INGRAM, CMP #### [facility] [address] [place] [address] Dr. Geri Pradhan Stapwilliam. lugdunensis Not detected Normal NOT DETECTED [facility] Comment on above: Performed By: #### Gerry INGRAM, CMP #### [facility] [address] [place] [address] Dr. Geri Pradhan Staphylococcus Detected Critically abnormal NOT DETECTED [facility] Comment on above: Performed By: #### T JUAN JOSE, CMP #### [facility] Laboratory [address] [place] [address] Dr. Geri Pradhan Strep. agalactiae Not detected Normal NOT DETECTED [facility] Comment on above: Performed By: #### T JUAN JOSE, CMP #### [facility] [address] [address] [address] Geri Pradhan Strep. pneumoniae Not detected Normal NOT DETECTED [facility] Comment on above: Performed By: #### T JUAN JOSE, CMP #### [facility] [address] [place] [address] Dr. Geri Pradhan Strep. pyogenes Not detected Normal NOT DETECTED [facility] Comment on above: Performed By: #### Gerry INGRAM, CMP #### [facility] [address] [place] [address] Dr. Geri Pradhan Streptococcus Not detected Normal NOT DETECTED [facility] Comment on above: Performed By: #### Gerry INGRAM, CMP #### [facility] [address] [place] [address] Dr. Geri Pradhan Amrit/B Resist. Gene Not Applicable Normal NOT DETECTED [facility] Comment on above: Performed By: #### Gerry INGRAM, CMP #### [facility] [address] [place] [address] Dr. Geri Pradhan VIM Resistant Gene Not Applicable Normal NOT DETECTED [facility] Comment on above: Performed By: #### Gerry INGRAM CMP #### [facility] [address] [place] [address] Dr. Geri Pradhan [facility] 02 MODE NASAL CANNULA Normal [facility] Comment on above: Performed By: #### R SPLUS #### [facility] [address] [place] [address] Dr. Geri Pradhan ALLENS TEST Positive Normal [facility] Comment on above: Performed By: #### R SPLUS #### [facility] [address] [place] [address] Dr. Geri Pradhan Base excess Calc (Bld) [Moles/Vol] 22.8 mmol/L Critically high -2.0-2.0 [facility] Comment on above: Performed By: #### R SPLUS #### [facility] [address] [place] [address] Dr. Geir Pradhan BIPAP PRESSURE Normal [facility] Comment on above: Performed By: #### R SPLUS #### [facility] [address] [place] [address] Dr. Geri Pradhan CPAP Normal [facility] Comment on above: Performed By: #### R SPLUS #### [facility] [address] [place] [address] Dr. Geri Pradhan FIO2 [facility] Comment on above: Performed By: #### R SPLUS #### [facility] [address] [place] [address] Dr. Geri Pradhan HCO3 (Bld) [Moles/Vol] 47.1 mmol/L Critically high 22.0-26 .0 [facility] Comment on above: Performed By: #### R SPLUS #### [facility] [address] [place] [address] Dr. Geri Pradhan LPM 2.5 Normal [facility] Comment on above: Performed By: #### R SPLUS #### [facility] [address] [place] [address] Dr. Geri Pradhan MINUTE VOLUME Normal [facility] Comment on above: Performed By: #### R SPLUS #### [facility] [address] [place] [address] Dr. Geri Pradhan Oxygen (Bld) [Partial pressure] 95.8 mm[Hg] Normal 80.0-100.0 [facility] Comment on above: Performed By: #### R SPLUS #### [facility] [address] [place] [address] Dr. Geri Pradhan Oxygen saturation in Blood 98.0 % Normal 95.0-100.0 [facility] Comment on above: Performed By: #### R SPLUS #### [facility] [address] [place] [address] Dr. Geri Pradhan PCO2 71.5 mmHg Critically high 35.0-45.0 [facility] Comment on above: Performed By: #### R SPLUS #### [facility] [address] [place] [address] Dr. Geri Pradhan PEEP [facility] Comment on above: Performed By: #### R SPLUS #### [facility] [address] [place] [address] Dr. Geri Pradhan pH (Bld) 7.428 [pH] Normal 7.350-7.450 [facility] Comment on above: Performed By: #### R SPLUS #### [facility] [address] [place] [address] Dr. Geri Pradhan [facility] Comment on above: Performed By: #### R SPLUS #### [facility] [address] [place] [address] Dr. Geri Pradhan [facility] Comment on above: Performed By: #### R SPLUS #### [facility] [address] [place] [address] Dr. Geri Pradhan PUNCTURE SITE RR [facility] Comment on above: Performed By: #### R SPLUS #### [facility] [address] [place] [address] Dr. Geri Pradhan [facility] Comment on above: Performed By: #### R SPLUS #### [facility] [address] [place] [address] [facility] Comment on above: Performed By: #### R SPLUS #### [facility] [address] [place] [address] Dr. Geri Pradhan [facility] Comment on above: Performed By: #### R SPLUS #### [facility] [address] [place] [address] Dr. Geri Pradhan BNPon 09-01-2022 Natriuretic peptide B (Bld) [Mass/Vol] 143.0 pg/mL Normal <=900.0 [facility] Comment on above: Performed By: #### R SPLUS #### [facility] [address] [place] [address] Dr. Geri Pradhan CARDIAC BRAYAN ADMITon 023 CK [Catalytic activity/Vol] 21 U/L Critically low 26-192 [facility] Comment on above: Performed By: #### R SPLUS #### [facility] [address] [place] [address] Dr. Geri Pradhan CK.MB [Mass/Vol] 0.78 ng/mL Normal <=3.60 [facility] Comment on above: Performed By: #### R SPLUS #### [facility] [address] [place] [address] Dr. Geri Pradhan HSTROP 6.9 pg/mL Normal 4.0-51.3 [facility] Comment on above: Result Comment: CUT- OFF POINTS HAVE BEEN ESTABLISHED BASED ON THE FOURTH UNIVERSAL DEFINITIONS OF MYOCARDIAL INFARCTION. THE UPPER REFERENCE LIMIT (URL) OF TROPONIN, DEFINED THE 99TH PERCENTILE OF cTnI DISTRIBUTION IN A REFERENCE POPULATION, HAS BEEN CONFIRMED THE DECISION THRESHOLD FOR NV DIAGNOSIS. Performed By: #### R SPLUS #### [facility] [address] [place] [address] Dr. Geri Pradhan VIN 20 ng/mL Normal 9-82 [facility] Comment on above: Performed By: #### R SPLUS #### [facility] [address] [place] [address] Dr. Geri Pradhan CBC AUTO DIFFon 09-01-2022 BASO # 0.0 103/ul Normal 0.0-0.1 [facility] Comment on above: Performed By: #### C BC #### [facility] [address] [place] [address] Dr. Geri Pradhan Basophils/100 WBC (Bld) 0.2 % Normal 0.2-2.0 [facility] Comment on above: Performed By: #### C BC #### [facility] [address] [place] [address] Dr. Geri Pradhan EO # 0.1 103/ul Normal 0.0-0.7 [facility] Comment on above: Performed By: #### C BC #### [facility] [address] [place] [address] Dr. Geri Pradhan Eosinophils/100 WBC (Bld) 1.5 % Normal 0.9-7.0 [facility] Comment on above: Performed By: #### C BC #### [facility] [address] [place] [address] Dr. Geri Pradhan Erythrocyte distribution width (RBC) [Ratio] 12.8 % Normal 11.0-15.0 [facility] Comment on above: Performed By: #### C BC #### [facility] [address] [place] [address] Dr. Geri Pradhan Hematocrit (Bld) [Volume fraction] 41.8 % Normal 36.0-48.0 [facility] Comment on above: Performed By: #### C BC #### [facility] [address] [place] [address] Dr. Geri Pradhan Hemoglobin (Bld) [Mass/Vol] 13.1 g/dL Normal 12.0-16.0 [facility] Comment on above: Performed By: #### C BC #### [facility] [address] [place] [address] Dr. Geri Pradhan IG # 0.05 10e3/ul Critically high 0.00-0.03 [facility] Comment on above: Performed By: #### C BC #### [facility] [address] [place] [address] Dr. Geri Pradhan IG % 0.5 % Normal 0.0-0.5 [facility] Comment on above: Performed By: #### C BC #### [facility] [address] [place] [address] Dr. Geri Pradhan LYMPH # 2.4 103/ul Normal 1.2-3.8 [facility] Comment on above: Performed By: #### C BC #### [facility] [address] [place] [address] Dr. Geri Pradhan Lymphocytes/100 WBC (Bld) 24.9 % Normal 20.5-60.0 [facility] Comment on above: Performed By: #### C BC #### [facility] [address] [place] [address] Dr. Geri Pradhan MANUAL DIFF REQ NO Normal [facility] Comment on above: Performed By: #### C BC #### [facility] [address] [place] [address] Dr. Geri Pradhan MCH (RBC) [Entitic mass] 27.2 pg Normal 26.7-34.0 [facility] Comment on above: Performed By: #### C BC #### [facility] [address] [place] [address] Dr. Geri Pradhan MCHC (RBC) [Mass/Vol] 31.3 g/dL Normal 29.9-35.2 [facility] Comment on above: Performed By: #### C BC #### [facility] [address] [place] [address] Dr. Geri Pradhan MCV (RBC) [Entitic vol] 86.7 fL Normal 81.0-99.0 [facility] Comment on above: Performed By: #### C BC #### [facility] [address] [place] [address] Dr. Geri Pradhan MONO # 0.9 103/ul Critically high 0.3-0.8 [facility] Comment on above: Performed By: #### C BC #### [facility] [address] [place] [address] Dr. Geri Pradhan Monocytes/100 WBC (Bld) 8.9 % Normal 1.7-12.0 [facility] Comment on above: Performed By: #### C BC #### [facility] [address] [place] [address] Dr. Geri Pradhan NEUT # 6.1 103/ul Normal 1.4-6.5 [facility] Comment on above: Performed By: #### C BC #### [facility] [address] [place] [address] Dr. Geri Pradhan Neutrophils/100 WBC (Bld) 64.0 % Normal 43.0-75.0 [facility] Comment on above: Performed By: #### C BC #### [facility] [address] [place] [address] Dr. Geri Pradhan Platelet mean volume (Bld) [Entitic vol] 9.2 fL Critically low 9.5-13.5 [facility] Comment on above: Performed By: #### C BC #### [facility] [address] [place] [address] Dr. Geri Pradhan PLT 349 103/ul Normal 150-450 [facility] Comment on above: Performed By: #### C BC #### [facility] [address] [place] [address] Dr. Geri Pradhan RBC 4.82 106/ul Normal 4.20-5.40 [facility] Comment on above: Performed By: #### C BC #### [facility] [address] [place] [address] Dr. Geri Pradhan WBC 9.5 103/ul Normal 4.0-11.0 [facility] Comment on above: Performed By: #### C BC #### [facility] [address] [place] [address] Dr. Geri Pradhan CULTURE BLOODon 09-01-2022 Microscopic examination of blood, culture Culture Observations: NO GROWTH AT 5 DAYS. Normal [facility] Comment on above: Performed By: #### P OCGLUC #### [facility] [address] [place] [address] Dr. Geri Pradhan CULTURE URINEon 09-01-2022 CULTURE URINE Culture Observations : EDUARDO TO FOLLOW. Isolate 1 Pseudomonas aeruginosa 10,000 cfu/mL of Normal [facility] Comment on above: Performed By: #### P OCGLUC #### [facility] [address] [place] [address] Dr. Geri Pradhan ER URINE PROFILEon 3 Bilirubin Ql (U) Negative Normal NEGATIVE [facility] Comment on above: Performed By: #### P OCGLUC #### [facility] [address] [place] [address] Dr. Geri Pradhan Clarity (U) CLEAR Normal CLEAR [facility] Comment on above: Performed By: #### P OCGLUC #### [facility] [address] [place] [address] Dr. Geri Pradhan Color (U) LT. YELLOW Normal YELLOW [facility] Comment on above: Performed By: #### P OCGLUC #### [facility] [address] [place] [address] Dr. Geri Pradhan ERUAHD A micrscopic examination will be performed if indicated. Normal [facility] Comment on above: Performed By: #### P OCGLUC #### [facility] [address] [place] [address] Dr. Geri Pradhan Glucose Ql (U) Negative Normal NEGATIVE [facility] Comment on above: Performed By: #### P OCGLUC #### [facility] [address] [address] [address] Geri Pradhan Hemoglobin Ql (U) TRACE-INTACT Abnormal NEGATIVE [facility] Comment on above: Performed By: #### P OCGLUC #### [facility] [address] [place] [address] Dr. Geri Pradhan Ketones Ql (U) Negative Normal NEGATIVE [facility] Comment on above: Performed By: #### P OCGLUC #### [facility] [address] [address] [address] Geri Pradhan LEUKOCYTES MODERATE Abnormal NEGATIVE [facility] Comment on above: Performed By: #### P OCGLUC #### [facility] [address] [place] [address] Dr. Geri Pradhan Nitrite Ql (U) Negative Normal NEGATIVE [facility] Comment on above: Performed By: #### P OCGLUC #### [facility] [address] [place] [address] Dr. Geri Pradhan pH (U) 6.5 [pH] Normal 5-9 [facility] Comment on above: Performed By: #### P OCGLUC #### [facility] [address] [place] [address] Dr. Geri Pradhan SPEC GRAVITY 1.010 Normal 1.005-<=1.02 5 [facility] Comment on above: Performed By: #### P OCGLUC #### [facility] [address] [place] [address] Dr. Geri Pradhan UA PROTEIN Negative Normal NEGATIVE/ TRACE [facility] Comment on above: Performed By: #### P OCGLUC #### [facility] [address] [place] [address] Dr. Geri Pradhan UR MICRO IND INDICATED Normal [facility] Comment on above: Performed By: #### P OCGLUC #### [facility] [address] [place] [address] Dr. Geri Pradhan Urobilinogen Qn (U) 0.2 {Lelia'U}/dL Normal 0.2 - 1. 0 [facility] Comment on above: Performed By: #### P OCGLUC #### [facility] [address] [address] [address] Geri Pradhan LACTATE/LACTIC ACIDon 2022 Lactate [Moles/Vol] 0.7 mmol/L Normal 0.4-2.0 [facility] Comment on above: Performed By: #### T JUAN JOSE, CMP #### [facility] [address] [address] [address] Geri Pradhan PROF 14(COMP METB)on 023 Albumin [Mass/Vol] 3.3 g/dL Critically low 3.4-5.0 [facility] Comment on above: Performed By: #### P OCGLUC #### [facility] [address] [place] [address] Dr. Geri Pradhan Albumin/Globulin [Mass ratio] 0.7 {ratio} Normal [facility] Comment on above: Performed By: #### P OCGLUC #### [facility] [address] [place] [address] Dr. Geri Pradhan ALP [Catalytic activity/Vol] 81 U/L Normal 46-116 [facility] Comment on above: Performed By: #### P OCGLUC #### [facility] [address] [place] [address] Dr. Geri Pradhan ALT [Catalytic activity/Vol] 19 U/L Normal 14-59 [facility] Comment on above: Performed By: #### P OCGLUC #### [facility] [address] [address] [address] Geri Pradhan Anion gap [Moles/Vol] 3.1 mmol/L Normal [facility] Comment on above: Performed By: #### P OCGLUC #### [facility] [address] [place] [address] Dr. Geri Pradhan AST [Catalytic activity/Vol] 16 U/L Normal 15-37 [facility] Comment on above: Performed By: #### P OCGLUC #### [facility] [address] [place] [address] Dr. Geri Pradhan Bilirubin [Mass/Vol] 0.2 mg/dL Normal 0.2-1.0 [facility] Comment on above: Performed By: #### P OCGLUC #### [facility] [address] [address] [address] Geri Pradhan Calcium [Mass/Vol] 9.8 mg/dL Normal 8.5-10.1 [facility] Comment on above: Performed By: #### P OCGLUC #### [facility] [address] [address] [address] Geri Pradhan Chloride [Moles/Vol] 93 mmol/L Critically low 98-107 [facility] Comment on above: Performed By: #### P OCGLUC #### [facility] [address] [address] [address] Geri Pradhan CO2 [Moles/Vol] 45.3 mmol/L Critically high 21.0-32.0 [facility] Comment on above: Performed By: #### P OCGLUC #### [facility] [address] [address] [address] Geri Pradhan Creatinine [Mass/Vol] 0.51 mg/dL Critically low 0.55-1.02 [facility] Comment on above: Performed By: #### P OCGLUC #### [facility] [address] [address] [address] Geri Pradhan EGFR-AF [place] >60 Normal >=60 [facility] Comment on above: Performed By: #### P OCGLUC #### [facility] [address] [address] [address] Geri Pradhan EGFR-NON AF [place] >60 Normal >=60 [facility] Comment on above: Performed By: #### P OCGLUC #### [facility] [address] [address] [address] Geri Pradhan Globulin (S) [Mass/Vol] 4.8 g/dL Normal [facility] Comment on above: Performed By: #### P OCGLUC #### [facility] [address] [address] [address] Geri Pradhan Glucose [Mass/Vol] 98 mg/dL Normal 74-106 [facility] Comment on above: Performed By: #### P OCGLUC #### [facility] [address] [address] [address] Geri Pradhan Potassium [Moles/Vol] 3.4 mmol/L Critically low 3.5-5.1 [facility] Comment on above: Performed By: #### P OCGLUC #### [facility] [address] [address] [address] Geri Pradhan Protein [Mass/Vol] 8.1 g/dL Normal 6.4-8.2 [facility] Comment on above: Performed By: #### P OCGLUC #### [facility] [address] [address] [address] Geri Pradhan Sodium [Moles/Vol] 138 mmol/L Normal 136-145 [facility] Comment on above: Performed By: #### P OCGLUC #### [facility] [address] [place] [address] Dr. Geri Pradhan Urea nitrogen [Mass/Vol] 11.0 mg/dL Normal 7.0-18.0 [facility] Comment on above: Performed By: #### P OCGLUC #### [facility] [address] [place] [address] Dr. Geri Pradhan Urea nitrogen/Creatinine [Mass ratio] 21.6 mg/mg Normal [facility] Comment on above: Performed By: #### P OCGLUC #### [facility] [address] [place] [address] Dr. Geri Pradhan PROTIMEon 09-01-2022 INR Coag (PPP) [Relative time] 0.96 {INR} Normal [facility] Comment on above: Performed By: #### T JUAN JOSE CMP #### [facility] [address] [place] [address] Dr. Geri Pradhan INR GUIDELINES SEE BELOW Normal [facility] Comment on above: Result Comment: KAROL RED INR: 2.0 - 3.0 CONDITIONS NOT LISTED BELOW 2.5 - 3.5 FOR PROSTHETIC HEART VALVE REPLACEMENT 2.5 - 3.5 RECURRENT THROMBOSIS Performed By: #### T JUAN JOSE CMP #### [facility] [address] [place] [address] Dr. Geri Pradhan PT Coag (PPP) [Time] 10.2 s Normal 9.0-11.6 [facility] Comment on above: Performed By: #### T JUAN JOSE, CMP #### [facility] [address] [place] [address] Dr. Geri Pradhan PTTon 09-01-2022 aPTT Coag (Bld) [Time] 25.5 s Normal 22.3-36.2 [facility] Comment on above: Performed By: #### Gerry INGRAM, CMP #### [facility] [address] [place] [address] Dr. Geri Pradhan URINE MICROSCOPIC ONLYon BACTERIA NONE SEEN Normal NONE SEEN [facility] Comment on above: Performed By: #### P OCGLUC #### [facility] [address] [place] [address] Dr. Geri Pradhan Bacteria identified Cx Nom (U) INDICATED Normal [facility] Comment on above: Performed By: #### P OCGLUC #### [facility] [address] [place] [address] Dr. Geri Pradhan CAST NONE SEEN Normal NONE SEEN [facility] Comment on above: Performed By: #### P OCGLUC #### [facility] [address] [place] [address] Dr. Geri Pradhan Crystals LM Nom (Urine sed) NONE SEEN Normal NONE SEEN [facility] Comment on above: Performed By: #### P OCGLUC #### [facility] [address] [place] [address] Dr. Geri Pradhan Epithelial cells LM Ql (Urine sed) FEW Abnormal NONE SEEN /RARE [facility] Comment on above: Performed By: #### P OCGLUC #### [facility] [address] [place] [address] Dr. Geri Pradhan MUCOUS NONE SEEN Normal NONE SEEN [facility] Comment on above: Performed By: #### P OCGLUC #### [facility] [address] [place] [address] Dr. Geri Pradhan RBC 0-2 Normal 0-2 [facility] Comment on above: Performed By: #### P OCGLUC #### [facility] [address] [place] [address] Dr. Geri Pradhan WBC 10-20 Abnormal NONE SEEN [facility] Comment on above: Performed By: #### P OCGLUC #### [facility] [address] [place] [address] Dr. Geri Pradhan XR CHEST 1 Von [...] EAMON ANDREWS Date: 2022-09-01 20:18 Normal [facility] ASPERGILLUS GALACTOMANNAN AN TIGEN DETECTon 05-28-2022 Aspergillus Ag, BAL/Serum 0.07 Index Normal 0.00-0.49 [facility] Comment on above: Result Comment: Perf ormed at: BN Performed By: #### Gerry INGRAM CMP #### [facility] [address] [place] [address] Dr. Geri Pradhan Test Information . Normal [facility] Comment on above: Result Comment: Perf ormed at: TG Performed By: #### Gerry INGRAM CMP #### [facility] [address] [place] [address] Dr. Geri Pradhan ASPERGILLUS AB, QUANTITATIVE DIDon 05-27-2022 Aspergillus flavus Negative Normal Neg:<1:1 [facility] Comment on above: Performed By: #### Gerry INGRAM CMP #### [facility] [address] [place] [address] Dr. Geri Pradhan Aspergillus fumigatus Negative Normal Neg:<1:1 [facility] Comment on above: Performed By: #### Gerry INGRAM CMP #### [facility] [address] [place] [address] Dr. Geri Pradhan Aspergillus niger Negative Normal Neg:<1:1 [facility] Comment on above: Performed By: #### Gerry INGRAM CMP #### [facility] [address] [place] [address] Dr. Geri Pradhan CULTURE SPUTUMon 05-23-2022 CULTURE SPUTUM Culture Observations : NORMAL RESPIRATORY NAVA. Normal [facility] Comment on above: Performed By: #### P OCGLUC #### [facility] [address] [address] [address] Geri Pradhan SPUTUM GRAM STAINon 05-23-19 23 COMMENTS Normal [facility] Comment on above: Performed By: #### T JUAN JOSE, CMP #### [facility] [address] [place] [address] Dr. Geri Pradhan DIPHTHEROIDS [facility] Comment on above: Performed By: #### T JUAN JOSE, CMP #### [facility] [address] [place] [address] Dr. Geri Pradhan EPITHELIALS <25 [facility] Comment on above: Performed By: #### Gerry INGRAM, CMP #### [facility] [address] [place] [address] Dr. Geri Pradhan FUNGAL ELEMENTS [facility] Comment on above: Performed By: #### T JUAN JOSE, CMP #### [facility] [address] [address] [address] Geri Pradhan GRAM NEG BACILLI [facility] Comment on above: Performed By: #### T JUAN JOSE, CMP #### [facility] [address] [place] [address] Dr. Geri Pradhan GRAM NEG DIPPLOCOCCI [facility] Comment on above: Performed By: #### Gerry INGRAM, CMP #### [facility] [address] [address] [address] Geri Pradhan GRAM POS BACILLI [facility] Comment on above: Performed By: #### T JUAN JOSE, CMP #### [facility] [address] [address] [address] Geri Pradhan GRAM POSITIVE COCCI MODERATE Normal [facility] Comment on above: Performed By: #### T JUAN JOSE, CMP #### [facility] [address] [place] [address] Dr. Geri Pradhan WBC (Bld) [#/Vol] 10*3/uL [facility] Comment on above: Performed By: #### T JUAN JOSE, [facility] #### [facility] [address] [address] [address] Geri Pradhan BRONCHOSCOPYon 05-09-[address] [facility] [address] Chest WO contraston 05-06 IMPRESSION: [...] any questions regarding this interpretation, please call [phone]. If you are unable to reach us at the number above, please feel free to contact [facility] eRadiology at [phone]. DIVISION OF RADIOLOGY * * *Final Report* * * DATE OF EXAM: May 06 2022 8:57AM [facility] 0541 - CT CHEST WO [...] No abnormality in the imaged upper abdomen. Digital Marketing Officer (topogram) images: No additional findings. DIVISION OF RADIOLOGY Provider, [facility] - 05/06/2022 * * *Final Report* * * DATE OF EXAM: May 06 2022 8:57AM [facility] 0541 - CT CHEST WO [...] No abnormality in the imaged upper abdomen. Digital Marketing Officer (topogram) images: No additional findings. IMPRESSION IMPRESSION: [...] any questions regarding this interpretation, please call [phone]. If you are unable to reach us at the number above, please feel free to contact [facility] eRadiology at [phone]. [facility] Radiology Study observation (narrative) [facility] CT Chest WO contrastOrdered By: Ccf Provider on 05-06-2022 [facility] Covid-19 PCR (CVDTBH)on 04-14 SARS-CoV-2 (COVID-19) RNA KRUNAL+probe Ql (Unsp spec) Not detected Normal NOT DETECTED [facility] Comment on above: Result Comment: This test is not yet approved or cleared by the [place] FDA. When there are no FDA-approved or cleared tests available, and other criteria are met, FDA can make tests available under an emergency access mechanism called an Emergency Use Authorization (EUA). The EUA for this test is supported by the Drug Safety Associate of Health and Human Service's (HHS's) declaration [...] SARS-CoV-2. Performed By: #### R SPLUS #### [facility] [address] [address] [address] Geri Pradhan Covid-19 PCR ([facility])on 03-14 SARS-CoV-2 (COVID-19) RNA KRUNAL+probe Ql (Unsp spec) Not detected Normal NOT DETECTED [facility] Comment on above: Result Comment: This test is not yet approved or cleared by the [place] FDA. When there are no FDA-approved or cleared tests available, and other criteria are met, FDA can make tests available under an emergency access mechanism called an Emergency Use Authorization (EUA). The EUA for this test is supported by the [place] of Health and Human Service's (HHS's) declaration [...] By: #### T JUAN JOSE, CMP #### [facility] [address] [place] [address] Dr. Geri Pradhan INFLUENZA A AND B AGon 04-08 [facility] SEE BELOW Normal [facility] Comment on above: Result Comment: Nega tive for Flu A protein angiten. Infection due to Flu A cannot be ruled out. Flu A angiten in the sample may be below the detection limit of the test. Performed By: #### T JUAN JOSE, CMP #### [facility] [address] [place] [address] Dr. Geri Prad[facility] Normal [facility] Comment on above: Result Comment: Nega tive for Flu B protein antigen. Infection due to Flu B cannot be ruled out. Flu B antigen in the sample may be below the detection limit of the test. Performed By: #### T JUAN JOSE, CMP #### [facility] [address] [place], [place] [address] Dr. Geri Pradhan INFLUENZA A AG Negative Normal NEGATIVE SEE COMMENT [facility] Comment on above: Performed By: #### T JUAN JOSE, CMP #### [facility] [address] [place], [place] [address] Dr. Geri Pradhan INFLUENZA B AG Negative Normal NEGATIVE SEE COMMENT [facility] Comment on above: Performed By: #### T JUAN JOSE, CMP #### [facility] [address] [place], [place] [address] Dr. Geri Pradhan INTERNAL CONTROLS Within Normal Limits Normal Wi thin Normal Limits [facility] Comment on above: Performed By: #### T JUAN JOSE, CMP #### [facility] [address] [place], [place] [address] Dr. Geri Pradhan GLUCOSE, BLOOD (POC)on 03-07 Glucose [Mass/Vol] 84 mg/dL 74 - 99 mg/dL [facility] Comment on above: Location:[facility], [address] [place] [address] , [place], [place], [facility] The Accu-Chek Inform II glucose meter [...] blood gas instrument) in the above situations. [facility] PET+CT Guidance for localiza tion of [...] any questions regarding this interpretation, please call [phone]. If you are unable to reach us at the number above, please feel [facility] [phone]. DIVISION OF RADIOLOGY * * *Final Report* [...] MUSCULOSKELETAL: There are no hypermetabolic osseous lesions. Digital Marketing Officer (topogram) images: No additional findings. DIVISION OF RADIOLOGY Provider, [facility] - 03/07/2022 * * *Final Report* [...] MUSCULOSKELETAL: There are no hypermetabolic osseous lesions. Digital Marketing Officer (topogram) images: No additional findings. IMPRESSION IMPRESSION: [...] us to partici (more content not included)... [facility] Radiology Study observation (narrative) [facility] PET+CT Guidance for localiza tion of tumor of Skull base to mid-thigh-- W [id number] IVOrdered By: Ccf Provider on 03-07-[address] [facility] [address] CHEST W CONon 02-17-2022 CT [...] by: JULES RAMIREZ Date: 2022-02-17 08:02 Normal [facility] CREATININEon 02-15-2022 Creatinine [Mass/Vol] 0.52 mg/dL Critically low 0.55-1.02 [facility] Comment on above: Performed By: #### R SPLUS #### [facility] [address] [place] [address] Dr. Geri Pradhan EGFR-AF [place]ER >60 Normal >=60 [facility] Comment on above: Performed By: #### R SPLUS #### [facility] [address] [place] [address] Dr. Geri Pradhan EGFR-NON AF [place] >60 Normal >=60 [facility] Comment on above: Performed By: #### R SPLUS #### [facility] [address] [place] [address] Dr. Geri Pradhan CULTURE SPUTUMon 02-11-2022 CULTURE SPUTUM Isolate 1 Milagros albicans Light growth of Normal [facility] Comment on above: Performed By: #### S PUTCX #### [facility] [address] [place] [address] Dr. Geri Pradhan SPUTUM GRAM STAINon 02-12-20 22 COMMENTS Normal [facility] Comment on above: Performed By: #### R SPLUS #### [facility] [address] [place] [address] Dr. Geri Pradhan DIPHTHEROIDS [facility] Comment on above: Performed By: #### R SPLUS #### [facility] [address] [place] [address] Dr. Geri Pradhan EPITHELIALS <25 Normal [facility] Comment on above: Performed By: #### R SPLUS #### [facility] [address] [place] [address] Dr. Geri Pradhan FUNGAL ELEMENTS [place] [facility] Comment on above: Performed By: #### R SPLUS #### [facility] [address] [place] [address] Dr. Geri Pradhan GRAM NEG BACILLI Normal [facility] Comment on above: Performed By: #### R SPLUS #### [facility] [address] [place] [address] Dr. Geri Pradhan GRAM NEG DIPPLOCOCCI Normal [facility] Comment on above: Performed By: #### R SPLUS #### [facility] [address] [address] [address] Geri Pradhan GRAM POS BACILLI Normal [facility] Comment on above: Performed By: #### R SPLUS #### [facility] [address] [place] [address] Dr. Geri Pradhan GRAM POSITIVE COCCI MODERATE Normal [facility] Comment on above: Performed By: #### R SPLUS #### [facility] [address] [place] [address] Dr. Geri Pradhan WBC (Bld) [#/Vol] 10*3/uL Normal [facility] Comment on above: Performed By: #### R SPLUS #### [facility] [address] [place] [address] Dr. Geri Pradhan Covid-19 PCR (CVDTBH)on 11-13 SARS-CoV-2 (COVID-19) RNA KRUNAL+probe Ql (Unsp spec) Detected Critically abnormal NOT DETECTED [facility] Comment on above: Result Comment: This test is not yet approved or cleared by the [place] FDA. When there are no FDA-approved or cleared tests available, and other criteria are met, FDA can make tests available under an emergency access mechanism called an Emergency Use Authorization (EUA). The EUA for this test is supported by the Drug Safety Associate of Health and Human Service's (HHS's) declaration [...] used). Performed By: #### C VDTBH #### [facility] [address] [place] [address] Chest W contrast [...] any questions regarding this interpretation, please call [phone]. If you are unable to reach us at the number above, please feel free to contact [facility] at [phone]. DIVISION OF RADIOLOGY * * *Final Report* * * DATE OF EXAM: May 29 2021 11:14AM [facility] 0539 - CT CHEST W IVCON / [...] images through the upper abdomen appears stable. Digital Marketing Officer (topogram) images: No additional findings. DIVISION OF RADIOLOGY Provider, [facility] - 05/30/2021 * * *Final Report* * * DATE OF EXAM: May 29 2021 11:14AM [facility] 0539 - CT CHEST W IVCON / [...] images through the upper abdomen appears stable. Digital Marketing Officer (topogram) images: No additional findings. IMPRESSION IMPRESSION: [...] any questions regarding this interpretation, please call [phone]. If you are unable to reach us at the number above, please feel free to contact [facility] eRadiology at [phone]. [facility] CT Chest W contrast IVOrdere d By: Ccf Provider on 05-30-[address] [facility] [address] Chest W contrast [facility] Study observation (narrative) Jose Cruz santiago [facility] General Surgery Office/Clini c Noteon 03-25-2021 General Surgery Office/Clinic Note Chief Complaint in-office excisional biopsy HPI Staff Presents for in-office excisional biopsy right alevism and right lower extremity. No change since last evaluation. History of Present Illness here for excision of right alevism and RLE lesions; no change since recent [...] and draped; anesthetized with 1% lidocaine; right alevism lesion excised in an elliptical fashion down [...] Cardiac arrest: Mother, Father and Sister. Normal [facility] Comment on above: Result Comment: Elec tronically Signed By: JIM DAVENPORT, Jose Domínguez\Date and Time Signed: 03/25/21 17:02 EST Ambulatory Clinical Summaryo n 02-12-2021 Ambulatory Clinical Summary {[id number]}CD:[id number] Normal [facility] General Surgery Office/Clini c Noteon 02-12-2021 General Surgery Office/Clinic Note Chief Complaint follow up in-office excisional biopsy HPI Staff 11 day post operative follow up post in-office excisional biopsy right alevism and right lower extremity. Sutures intact. Denies bleeding or drainage from incision site. History of Present Illness 11 days s/p excisional biopsy changing lesions right alevism and right lower extremity; doing well, no drainage; alevism lesion basal cell carcinoma, margins not commented [...] Cardiac arrest: Mother, Father and Sister. Normal [facility] Comment on above: Result Comment: Elec tronically Signed By: JIM DAVENPORT, Jose Domínguez\Date and Time Signed: 02/12/21 13:16 EDT Pathology Noteon 02-06-2021 Pathology Note [id number] 0CD:127 Normal [facility] Ambulatory Clinical Summaryo n 01-11-2021 Ambulatory Clinical Summary {[id number]}CD:[id number] Normal [facility] Ambulatory Clinical Summary {[id number]}CD:[id number] Normal [facility] Physician Referralon 021 Physician Referral [id number] 0CD:127 Normal [facility] MEA77da 03-02-2018 Protein mass conc NAME : ELAINE GUERRERO D : [id number] : 1960 Gender : FemaleRace : CaucasianORD : [id number] Procedure Date : Mar 02 2018 12:58:22Edit Date : Mar 02 2018 14:15:37 Diagnosis:NORMAL SINUS RHYTHMRIGHT ATRIAL ENLARGEMENTMINIMAL VOLTAGE CRITERIA FOR LVH, MAY BE NORMAL VARIANTBORDERLINE ECGNO PREVIOUS ECGS AVAILABLEConfirmed by CORNELIA ROGERS M.D. ([id number]) on 03/02/2018 2:15:27 PM Ventricular Rate : 86 BPMAtrial Rate : 86 BPMP-R Interval : 178 msQRS Duration : 72 msQ-T Interval : 374 msQTC Calculation(Bezet) : 447 msP Tina : 88 degreesR Tina : 78 degreesT Tina : 79 degrees Test Reason : Location : 49 : [place] Overread By : KEN M.D.,VIJAYEdited By : KEN Maier,VIJAYReferred By : DUGLAS FERNANDEZAcquired by : CELESTE GILLESPIE [facility] Vital Signs Date Time Vital Sign Value Performing Clinician Facility 03-01-2024 11:10-0500 Body height 162.6 cm Carla Montague MD Work Phone: [facility] 03-01-2024 11:10-0500 Body mass index (BMI) [Ratio] 16.31 kg/m2 Carla Montague MD Work Phone: [facility] 03-01-2024 11:10-0500 Body weight 43.09 kg Carla Montague MD Work Phone: [facility] 03-01-2024 11:10-0500 Diastolic blood pressure 73 mm[Hg] Carla Montague MD Work Phone: [facility] 03-01-2024 11:10-0500 Systolic blood pressure 115 mm[Hg] Carla Montague MD Work Phone: [facility] 02-23-2024 14:30-0500 Body height 162.56 cm Adithya Kenyon MD Work Phone: [facility] 02-23-2024 14:30-0500 Body mass index (BMI) [Ratio] 15.7 kg/m2 Adithya Kenyon MD Work Phone: [facility] 02-23-2024 14:30-0500 Body weight 41.73 kg Adithya Kenyon MD Work Phone: [facility] 02-23-2024 14:30-0500 Diastolic blood pressure 64 mm[Hg] Adithya Kenyon MD Work Phone: [facility] 02-23-2024 14:30-0500 Heart rate 104 /min Adithya Kenyon MD Work Phone: [facility] 02-23-2024 14:30-0500 Inhaled oxygen flow rate 2 L/min Adithya Kenyon MD Work Phone: [facility] 02-23-2024 14:30-0500 Respiratory rate 20 /min Adithya Kenyon MD Work Phone: [facility] 02-23-2024 14:30-0500 SaO2% (BldA) [Mass fraction] 96 % Adithya Kenyon MD Work Phone: [facility] 02-23-2024 14:30-0500 Systolic blood pressure 116 mm[Hg] Adithya Kenyon MD Work Phone: [facility] 01-29-2024 13:46-0400 Body temperature 97.7 [degF] Abdi Israel MD Work Phone: [facility] 01-29-2024 13:46-0400 Diastolic blood pressure 78 mm[Hg] Abdi Israel MD Work Phone: [facility] 01-29-2024 13:46-0400 Heart rate 112 /min Abdi Israel MD Work Phone: [facility] 01-29-2024 13:46-0400 Respiratory rate 16 /min Abdi Israel MD Work Phone: [facility] 01-29-2024 13:46-0400 SaO2% (BldA) [Mass fraction] 93 % Abdi Israel MD Work Phone: [facility] Comment on above: 2 liters 01-29-2024 13:46-0400 Systolic blood pressure 125 mm[Hg] Abdi Israel MD Work Phone: [facility] 12-24-2023 12:00-0400 Diastolic blood pressure 80 mm[Hg] MD Adithya Kenyon Work Phone: [facility] 12-24-2023 12:00-0400 Heart rate 106 /min MD Adithya Kenyon Work Phone: [facility] 12-24-2023 12:00-0400 Inhaled oxygen flow rate 2 L/min MD Adithya Kenyon Work Phone: [facility] 12-24-2023 12:00-0400 Respiratory rate 18 /min MD Adithya Kenyon Work Phone: [facility] 12-24-2023 12:00-0400 SaO2% (BldA) [Mass fraction] 96 % MD Adithya Kenyon Work Phone: [facility] 12-24-2023 12:00-0400 Systolic blood pressure 135 mm[Hg] MD Adithya Kenyon Work Phone: [facility] 12-24-2023 06:00-0400 Body weight 39.5 kg MD Adithya Kenyon Work Phone: [facility] 12-24-2023 04:00-0400 Body temperature 97.9 [degF] MD Adithya Kenyon Work Phone: [facility] 12-21-2023 13:57-0400 Body height 162.56 cm MD Adithya Kenyon Work Phone: [facility] 12-20-2023 22:30-0400 Diastolic blood pressure 78 mm[Hg] MD Adithya Kenyon Work Phone: [facility] 12-20-2023 22:30-0400 Heart rate 107 /min MD Adithya Kenyon Work Phone: [facility] 12-20-2023 22:30-0400 Inhaled oxygen flow rate 2 L/min MD Adithya Kenyon Work Phone: [facility] 12-20-2023 22:30-0400 Respiratory rate 18 /min MD Adithya Kenyon Work Phone: [facility] 12-20-2023 22:30-0400 SaO2% (BldA) [Mass fraction] 94 % MD Adithya Kenyon Work Phone: [facility] 12-20-2023 22:30-0400 Systolic blood pressure 126 mm[Hg] MD Adithya Kenyon Work Phone: [facility] 12-20-2023 21:00-0400 Inhaled oxygen concentration 28 % MD Adithya Kenyon Work Phone: [facility] 12-20-2023 20:01-0400 Body height 162.56 cm MD Adithya Kenyon Work Phone: [facility] 12-20-2023 20:01-0400 Body weight 42.18 kg MD Adithya Kenyon Work Phone: [facility] 12-20-2023 19:49-0400 Body temperature 97.3 [degF] MD Adithya Kenyon Work Phone: [facility] 12-03-2023 09:31-0400 Body height 162.[address] [facility] 12-03-2023 09:31-0400 Body mass index (BMI) [Ratio] 16 kg/m2 [facility] 12-03-2023 09:31-0400 Body temperature 97.8 [degF] [facility] 12-03-2023 09:31-0400 Body weight 42.[address] [facility] 12-03-2023 09:31-0400 Diastolic blood pressure 72 mm[Hg] [facility] 12-03-2023 09:31-0400 Heart rate 100 /min [facility] 12-03-2023 09:31-0400 Inhaled oxygen flow rate 2 L/min [facility] 12-03-2023 09:31-0400 Respiratory rate 20 /min [facility] 12-03-2023 09:31-0400 SaO2% (BldA) [Mass fraction] 94 % [facility] 12-03-2023 09:31-0400 Systolic blood pressure 115 mm[Hg] [facility] 11-17-2023 14:50-0400 Body height 162.6 cm Pacc 1 Work Phone: [facility] 11-17-2023 14:50-0400 Body mass index (BMI) [Ratio] 16.01 kg/m2 Pacc 1 Work Phone: [facility] 11-17-2023 14:50-0400 Body temperature 97.2 [degF] Pacc 1 Work Phone: [facility] 11-17-2023 14:50-0400 Body weight 42.3 kg Pacc 1 Work Phone: [facility] 11-17-2023 14:50-0400 Diastolic blood pressure 64 mm[Hg] Pacc 1 Work Phone: [facility] 11-17-2023 14:50-0400 Heart rate 118 /min Pacc 1 Work Phone: [facility] 11-17-2023 14:50-0400 Respiratory rate 16 /min Pacc 1 Work Phone: [facility] 11-17-2023 14:50-0400 SaO2% (BldA) [Mass fraction] 95 % Pacc 1 Work Phone: [facility] Comment on above: 2l 11-17-2023 14:50-0400 Systolic blood pressure 121 mm[Hg] Pacc 1 Work Phone: [facility] 09-29-2023 13:29-0400 Body height 162.[address] [facility] 09-29-2023 13:29-0400 Body mass index (BMI) [Ratio] 16.1 kg/m2 [facility] 09-29-2023 13:29-0400 Body temperature 96.2 [degF] [facility] 09-29-2023 13:29-0400 Body weight 42.[address] [facility] 09-29-2023 13:29-0400 Diastolic blood pressure 74 mm[Hg] [facility] 09-29-2023 13:29-0400 Heart rate 92 /min [facility] 09-29-2023 13:29-0400 Respiratory rate 20 /min [facility] 09-29-2023 13:29-0400 SaO2% (BldA) [Mass fraction] 91 % [facility] 09-29-2023 13:29-0400 Systolic blood pressure 134 mm[Hg] [facility] 09-16-2023 11:30-0400 Diastolic blood pressure 69 mm[Hg] Khushboo Mcintyre MD, Work Phone: [facility] 09-16-2023 11:30-0400 Heart rate 102 /min Khushboo Mcintyre MD, MD Work Phone: [facility] 09-16-2023 11:30-0400 Respiratory rate 16 /min Khushboo Mcintyre MD, MD Work Phone: [facility] 09-16-2023 11:30-0400 SaO2% (BldA) [Mass fraction] 97 % Khushboo Mcintyre MD, MD Work Phone: [facility] 09-16-2023 11:30-0400 Systolic blood pressure 146 mm[Hg] Khushboo Mcintyre MD, MD Work Phone: [facility] 09-16-2023 09:02-0400 Body temperature 97.5 [degF] Khushboo Mcintyre MD, MD Work Phone: [facility] 05-17-2023 12:14-0500 Heart rate 120 /min [facility] 05-17-2023 12:14-0500 Respiratory rate 22 /min [facility] 05-17-2023 11:04-0500 Diastolic blood pressure 76 mm[Hg] [facility] 05-17-2023 11:04-0500 Inhaled oxygen flow rate 2 L/min [facility] 05-17-2023 11:04-0500 SaO2% (BldA) [Mass fraction] 97 % [facility] 05-17-2023 11:04-0500 Systolic blood pressure 117 mm[Hg] [facility] 05-17-2023 07:32-0500 Body temperature 97.4 [degF] [facility] 05-17-2023 03:19-0500 Body weight 39.[address] [facility] 05-14-2023 16:31-0500 Body height 162.[address] [facility] 05-14-2023 01:40-0500 Diastolic blood pressure 57 mm[Hg] [facility] 05-14-2023 01:40-0500 Heart rate 119 /min [facility] 05-14-2023 01:40-0500 Inhaled oxygen flow rate 2 L/min [facility] 05-14-2023 01:40-0500 Respiratory rate 22 /min [facility] 05-14-2023 01:40-0500 SaO2% (BldA) [Mass fraction] 91 % [facility] 05-14-2023 01:40-0500 Systolic blood pressure 119 mm[Hg] [facility] 05-13-2023 16:49-0500 Body height 162.[address] [facility] 05-13-2023 16:49-0500 Body temperature 97.9 [degF] [facility] 05-13-2023 16:49-0500 Body weight 40.[address] [facility] 11-27-2022 10:34-0400 Body temperature 96.01 [degF] Abdi Israel MD Work Phone: [facility] 11-27-2022 10:34-0400 Body weight 45.18 kg Abdi Israel MD Work Phone: [facility] 11-27-2022 10:34-0400 Diastolic blood pressure 82 mm[Hg] Abdi Israel MD Work Phone: [facility] 11-27-2022 10:34-0400 Heart rate 110 /min Abdi Israel MD Work Phone: [facility] 11-27-2022 10:34-0400 Respiratory rate 20 /min Abdi Israel MD Work Phone: [facility] 11-27-2022 10:34-0400 SaO2% (BldA) [Mass fraction] 89 % Abdi Israel MD Work Phone: [facility] 11-27-2022 10:34-0400 Systolic blood pressure 132 mm[Hg] Abdi Israel MD Work Phone: [facility] 06-26-2022 15:00-0400 Body height 162.56 cm Jose Conde Other [employer] Other 06-26-2022 15:00-0400 Body mass index (BMI) [Ratio] 18.02 kg/m2 Jose Conde Other [employer] Other 06-26-2022 15:00-0400 Body temperature 97.2 [degF] Jose Elton Other [employer] Other 06-26-2022 15:00-0400 Body weight 47.63 kg Jose Elton Other [employer] Other 06-26-2022 15:00-0400 Diastolic blood pressure 80 mm[Hg] Jose Conde Other [employer] Other 06-26-2022 15:00-0400 Systolic blood pressure 128 mm[Hg] Jose Elton Other [employer] Other 06-02-2022 14:09-0500 Body temperature 97.7 [degF] Abdi Israel MD Work Phone: [facility] 06-02-2022 14:09-0500 Body weight 49.35 kg Abdi Israel MD Work Phone: [facility] 06-02-2022 14:09-0500 Diastolic blood pressure 78 mm[Hg] Abdi Israel MD Work Phone: [facility] 06-02-2022 14:09-0500 Heart rate 116 /min Abdi Israel MD Work Phone: [facility] 06-02-2022 14:09-0500 Respiratory rate 18 /min Abdi Israel MD Work Phone: [facility] 06-02-2022 14:09-0500 SaO2% (BldA) [Mass fraction] 89 % Abdi Israel MD Work Phone: [facility] 06-02-2022 14:09-0500 Systolic blood pressure 125 mm[Hg] Abdi Israel MD Work Phone: [facility] 05-22-2022 15:15-0500 Body height 162.56 cm Jose Conde Other [employer] Other 05-22-2022 15:15-0500 Body mass index (BMI) [Ratio] 18.02 kg/m2 Jose Conde Other [employer] Other 05-22-2022 15:15-0500 Body temperature 98.2 [degF] Jose Conde Other [employer] Other 05-22-2022 15:15-0500 Body weight 47.63 kg Jose Conde Other [employer] Other 05-22-2022 15:15-0500 Diastolic blood pressure 78 mm[Hg] Jose Elton Other [employer] Other 05-22-2022 15:15-0500 Systolic blood pressure 130 mm[Hg] Jose Elton Other [employer] Other 05-09-2022 10:30-0500 Diastolic blood pressure 80 mm[Hg] Yasmin Waggoner MD Work Phone: [facility] 05-09-2022 10:30-0500 Heart rate 99 /min Yasmin Waggoner MD Work Phone: [facility] 05-09-2022 10:30-0500 Respiratory rate 16 /min Yasmin Waggoner MD Work Phone: [facility] 05-09-2022 10:30-0500 SaO2% (BldA) [Mass fraction] 97 % Yasmin Waggoner MD Work Phone: [facility] 05-09-2022 10:30-0500 Systolic blood pressure 134 mm[Hg] Yasmin Waggoner MD Work Phone: [facility] 05-09-2022 10:02-0500 Body temperature 98.2 [degF] Yasmin Waggoner MD Work Phone: [facility] 05-09-2022 07:03-0500 Body height 162.6 cm Yasmin Waggoner MD Work Phone: [facility] 05-09-2022 07:03-0500 Body weight 47.63 kg Yasmin Waggoner MD Work Phone: [facility] 03-14-2022 11:22-0500 Body temperature 97.81 [degF] Abdi Israel MD Work Phone: [facility] 03-14-2022 11:22-0500 Body weight 49.9 kg Abdi Israel MD Work Phone: [facility] 03-14-2022 11:22-0500 Heart rate 101 /min Abdi Israel MD Work Phone: [facility] 03-14-2022 11:22-0500 Respiratory rate 16 /min Abdi Israel MD Work Phone: [facility] 03-14-2022 11:22-0500 SaO2% (BldA) [Mass fraction] 96 % Abdi Israel MD Work Phone: [facility] 06-06-2021 10:01-0500 Body temperature 97.7 [degF] Abdi Israel MD Work Phone: [facility] 06-06-2021 10:01-0500 Body weight 51.71 kg Abdi Israel MD Work Phone: [facility] 06-06-2021 10:01-0500 Diastolic blood pressure 67 mm[Hg] Abdi Israel MD Work Phone: [facility] 06-06-2021 10:01-0500 Heart rate 97 /min Abdi Israel MD Work Phone: [facility] 06-06-2021 10:01-0500 Respiratory rate 20 /min Abdi Israel MD Work Phone: [facility] 06-06-2021 10:01-0500 SaO2% (BldA) [Mass fraction] 93 % Abdi Israel MD Work Phone: [facility] 06-06-2021 10:01-0500 Systolic blood pressure 120 mm[Hg] Abdi Israel MD Work Phone: [facility] Encounters Encounter Date Encounter Type Care [...] encounter procedure Adithya Kenyon MD Work Phone: [facility] Work Phone: Start: 02-26-2024 End: 02-26-2024 ambulatory Adithya Kenyon MD Work Phone: [facility] Work Phone: Start: 02-23-2024 End: 02-23-2024 ambulatory Adithya Kenyon MD Work Phone: [facility] Work Phone: Start: 02-23-2024 End: 02-23-2024 Patient encounter procedure Adithya Kenyon MD Work Phone: [facility] Work Phone: Start: 02-17-2024 End: 02-17-2024 Telephone encounter Abdi Israel MD Work Phone: Radiation Oncology Start: 01-29-2024 End: 01-29-2024 ambulatory ABDI ISRAEL Facility:[facility] Start: 01-29-2024 End: 01-29-2024 Patient encounter procedure Abdi Israel MD Work Phone: Radiation Oncology Comment on above: Non-small cell cance r of left lung (HCC) (Primary Dx) Start: 01-18-2024 End: 01-18-2024 ambulatory ABDI ISRAEL Facility:[facility] Start: 01-18-2024 End: 01-18-2024 Subsequent hospital visit by physician Arrival Time Radiology Work Phone: Radiology Pet CT Comment on above: Malignant neoplasm o f unspecified part of unspecified bronchus or lung (HCC) [C34.90] Start: 12-24-2023 End: 12-28-2023 Telephone encounter Abdi Israel MD Work Phone: Cancer [facility] Comment on above: Appointment Confirma tion Start: 12-21-2023 Non-patient / Non-visit MD Eloina Kenyon Work Phone: [facility] Work Phone: Start: 12-21-2023 End: 12-24-2023 Evaluation and management of inpatient MD Adithya Kenyon Work Phone: [facility] Work Phone: Start: 12-20-2023 Evaluation and manag ement of inpatient MD Adithya Kenyon Work Phone: [facility] Work Phone: Start: 12-20-2023 observation encounter MD Idalia Kenyon Work Phone: [facility] Work Phone: Start: 12-03-2023 End: 12-03-2023 ambulatory [facility] Work Phone: Start: 12-03-2023 End: 12-03-2023 Patient encounter procedure [facility] Work Phone: Start: 11-19-2023 Telephone encounter Teo Craft MD Work Phone: [facility] Comment on above: Patient Update Start: 11-18-2023 End: 11-18-2023 ambulatory TEO CRAFT Facility:[facility] Start: 11-17-2023 End: 11-17-2023 ambulatory ADITHYA Clinton Zachary Facility:[facility] Start: 11-17-2023 Encounter for other preprocedural examination [facility] Start: 11-17-2023 End: 11-17-2023 Admission to establishment [place] [id number] Work Phone: Pre Anesthesia Start: 11-17-2023 End: 11-17-2023 Anesthesia consultation [place] [id number] Work Phone: Pre Anesthesia Comment on above: Preoperative examina tion (Primary Dx); 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); Non-small cell cancer of left lung (HCC); Chronic respiratory failure with hypoxia (HCC); COPD, severe (HCC); Supplemental oxygen dependent; Former smoker Start: 11-17-2023 End: 11-17-2023 Preprocedural examination done [place] [id number] Work Phone: [facility] Work Phone: Start: 11-16-2023 End: 12-09-2023 Telephone encounter Abdi Israel MD Work Phone: Radiation Oncology Comment on above: Results Start: 10-27-2023 End: 10-27-2023 ambulatory TEO CRAFT Facility:[facility] Start: 10-27-2023 End: 10-27-2023 Patient encounter procedure Teo Craft MD Work Phone: Otolaryngology Comment on above: Lymphadenopathy (Marysol rowan Dx); Non-small cell cancer of left lung (HCC); 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) Start: 09-29-2023 End: 09-29-2023 ambulatory [facility] Work Phone: Start: 09-29-2023 End: 09-29-2023 Patient encounter procedure [facility] Work Phone: Start: 09-21-2023 Telephone encounter Abdi Israel MD Work Phone: Cancer [facility] Comment on above: Appointment Confirma tion Start: 09-16-2023 ambulatory KHUSHBOO MCINTYRE Facility: [facility] Start: 09-16-2023 End: 09-16-2023 Subsequent hospital visit by physician Khushboo Mcintyre MD Work Phone: [phone] Comment on above: Malignant neoplasm o f unspecified part of unspecified bronchus or lung (HCC) [C34.90] Start: 09-14-2023 End: 09-14-2023 ambulatory ADITHYA KENYON Facility:[facility] Start: 09-10-2023 End: 09-10-2023 ambulatory ANA DRIVER Not Available Start: 09-09-2023 Orders Only Osito Galicia MD Work Phone: [facility] Comment on above: Neoplasm (Primary Dx ) Start: 09-08-2023 Telephone encounter Abdi Israel MD Work Phone: [facility] Comment on above: Cervical lymph node bx Biopsy Request Start: 09-01-2023 End: 09-01-2023 ambulatory ABDI ISRAEL Facility:[facility] Start: 09-01-2023 End: 09-01-2023 Subsequent hospital [...] Start: 05-25-2023 End: 05-25-2023 ambulatory ABDI ISRAEL Facility:[facility] Start: 05-20-2023 Telephone encounter Abdi Israel MD Work Phone: Radiation Oncology Comment on above: Patient Update; Futu re Appointment Start: 05-14-2023 End: 05-17-2023 Evaluation and management of inpatient Adithya Kneyon Facility:[facility] Start: 05-14-2023 Non-patient / Non-visit [facility] Work Phone: Start: [...] 06-26-2022 End: 06-26-2022 ambulatory Jose Conde Other [employer] Other Start: 06-26-2022 Office outpatient vi sit 25 minutes Jose Conde [facility] Start: 06-10-2022 End: 06-10-2022 ambulatory Jose Conde Other [employer] Other Start: 06-10-2022 Telephone encounter Jose Conde [facility] Start: 06-02-2022 End: 06-02-2022 Patient encounter procedure Abdi Israel MD Work Phone: Radiation Oncology Comment on above: Non-small cell cance r of left lung (HCC) (Primary Dx) Start: 05-23-2022 End: 05-23-[address] JOSE CONDE Facility:[facility] Start: 05-22-2022 End: 05-23-[address] JOSE CONDE [employer] Other Start: 05-22-2022 Office outpatient ne w 45 minutes Jose Blank [facility] Start: 05-14-2022 Telephone encounter Abdi Israel MD Work Phone: Radiation Oncology Comment on above: Appointment Start: 05-09-2022 End: 05-09-2022 Subsequent hospital visit by physician Yasmin Waggoner MD Work Phone: Admitting Comment on above: Bronchiolar disease [J98.09] Start: 05-08-2022 Encounter for preprocedural laboratory examination DR DOCTOR DAS [facility] Start: 05-06-2022 End: 05-06-2022 ambulatory [...] with patient Vitor Kaur MD Work Phone: [facility] Start: 04-24-2022 Telephone encounter [address]ina Hassan CT Pulmonary Medicine Comment on above: Appointment (PreOp B ronneil) Start: 04-23-2022 Orders Only Alicja Reece APRN.HYDROSTATIC TESTER Work Phone: Admitting Comment on above: Preoperative examina tion (Primary Dx) Appointment Start: 04-23-2022 Preprocedural examin ation done Alicja Reece APRN.HYDROSTATIC TESTER Work Phone: Admitting Start: 04-22-2022 ambulatory [...] [D4 9.1] Start: 03-02-2018 Patient encounter procedure [facility] Start: 03-24-2017 Ambulatory JAYE HOUGH [...] Author Start: 11-16-2026 Diabetes Screening Diabetes Screening [facility] Start: 04-24-2025 DIABETES SCREEN DIABETES SCREEN [facility] Start: 04-24-2025 Diabetes Screening Diabetes Screening [facility] Start: 08-30-2024 End: 08-30-2024 Patient encounter procedure 08/30/2024 11:10 AM EDT Office Visit [facility] [address] [facility] [address] [place] [address] Carla Montague MD [address] [facility] [address] [place] [address] [facility] Start: 05-23-2024 End: 05-23-2024 Patient encounter procedure 05/23/2024 11:00 AM EST Office Visit Radiation Oncology [address] [place] [address] Abdi Israel MD [address] [place] [place] [address] Followup Radiation Oncology Comment on above: Followup Start: 05-18-2024 End: 05-18-2024 Patient encounter procedure 05/18/2024 10:15 AM EST Appointment Radiology Pet CT [address] [facility] [place] [address] CT CHE[address] [facility] [address] Comment on above: CT CHEST Start: 03-01-2024 End: 03-01-2024 Patient encounter procedure 03/01/2024 11:10 AM EST Office Visit [facility] [address] [facility] [address] [place] [address] Carla Montague MD [address] [facility] [address] [place] [address] Arrived [facility] Comment on above: Arrived Start: 01-29-2024 End: 01-29-2024 Patient encounter procedure 01/29/2024 2:00 PM EDT Office Visit Radiation Oncology [address] [facility] [place] [address] Abdi Israel MD [address] [address] F/U after CT Scan Radiation Oncology Comment on above: F/U after CT Scan Start: 01-18-2024 End: 01-18-2024 Patient encounter procedure 01/18/2024 10:45 AM EDT Appointment Radiology [facility] [address] [place] [address] CT Chest w/IV [facility]iology Pet CT Comment on above: CT Chest w/IV Start: 12-24-2023 [facility] Start: 12-22-2023 Microbial culture of sputum [facility] Start: 12-22-2023 [facility] Start: 12-21-2023 Administration of prophylactic treatment [facility] Start: 12-21-2023 End: 12-21-2023 ambulatory 12/21/2023 1:25 PM EDT [facility] Otolaryngology [address] [address] Teo Craft MD [address] [place] [address] post op Otolaryngology Comment on above: post op Start: 12-21-2023 Administration of prophylactic treatment [facility] Start: 12-21-2023 [facility] Start: 12-20-2023 Consultation [facility] Start: 12-20-2023 Hospital admission [facility] Start: 12-20-2023 Respiratory pathogens DNA and RNA panel - Nasopharynx by KRUNAL with non-probe detection [facility] Start: 12-20-2023 [facility] Start: 12-20-2023 Plain chest X-ray XR chest 1V portable [facility] Start: 12-20-2023 XR Chest Single view [facility] Start: 12-18-2023 End: 12-18-2023 Patient encounter procedure 12/18/2023 3:00 PM EDT Office Visit Radiation Oncology [address] [place] [place] [address] Abdi Israel MD [address] [place] [address] followup Radiation Oncology Comment on above: followup Start: 12-15-2023 End: 12-15-2023 Patient encounter procedure 12/15/2023 2:15 PM EDT Appointment Radiology [facility] [address] [place] [place] [address] CT chest [address] [facility] [address] Comment on above: CT chest Start: 12-15-2023 End: 12-15-2023 Patient encounter procedure 12/15/2023 12:45 PM EDT Appointment Radiology [facility] [address] [place] [place] [address] Comment on above: PET Start: 12-13-2023 Covid-19 Vaccine ( season) Covid-19 Vaccine ( season) [facility] Start: 12-13-2023 Covid-19 Vaccine ( season) Covid-19 Vaccine ( season) [facility] Start: 12-13-2023 Influenza vaccination Influenza Vaccine (#1) [facility] Start: 11-18-2023 End: 11-18-2023 Admission to same day surgery center 11/18/2023 4:10 PM EDT - 11/18/2023 6:42 PM EDT Surgery Admitting [address] [place] [address] Teo Craft MD [address] [place] [address] BIOPSY OR EXCISION LYMPH NODE(S) OPEN, DEEP CERVICAL Admitting Comment on above: BIOPSY OR EXCISION LYMPH NODE(S) OPEN, D EEP CERVICAL Start: 11-18-2023 End: 11-18-2023 Bx/exc lymph node open deep cervical node BIOPSY OR EXCISION LYMPH NODE(S) OPEN, DEEP CERVICAL Non-small cell cancer of left lung (HCC) Lymphadenopathy 11/18/2023 4:10 PM EDT [facility] Start: 11-18-2023 Subsequent hospital visit by physician 11/18/2023 4:10 PM EDT Hospital Encounter Admitting [address] [place] [address] Teo Craft MD [address] [place] [address] Non-small cell cancer of left lung (HCC) [C34.92] Admitting Comment on above: Non-small cell cancer of left lung (HCC) [C34.92] Start: 10-27-2023 End: 10-27-2023 Patient encounter procedure 10/27/2023 11:00 AM EDT Office Visit Otolaryngology [address] [address] Teo Cratf MD [address] [place] [address] excisional biopsy cervical lymph node; needle biopsy was negative Otolaryngology Comment on above: excisional biopsy cervical lymph node; n eedle biopsy was negative Start: 09-16-2023 End: 09-16-2023 Admission to same day surgery center 09/16/2023 10:00 AM EDT - 09/16/2023 11:00 AM EDT Surgery Angio [address] [place] [address] [place], [address] [facility] [address] [address] BIOPSY OR EXCISION LYMPH NODES(S) NEEDLE SUPERFICIAL [...] 10:00 AM EDT Hospital Encounter Angio [address] [place] [address] [place], [address] [facility] [place] [address] [place] [id number] Malignant neoplasm of unspecified part of unspecified bronchus or lung (HCC) [C34.90] Angio Comment on above: Malignant neoplasm of unspecified part o f unspecified bronchus or lung (HCC) [C34.90] Start: 09-09-2023 End: 12-09-2023 CBC panel - Blood by Automated count COMPLETE BLOOD COUNT Lab Routine Neoplasm Expected: 09/09/2023, Expires: 12/09/2023 [facility] Work Phone: Comment on above: Expected: 09/09/2023, Expires: Start: 09-01-2023 End: 09-01-2023 Patient encounter procedure 09/01/2023 12:45 PM EDT Appointment Radiology Pet CT [address] [place] [address] [place] [address] Comment on above: PET Start: 05-17-2023 [facility] Start: 05-14-2023 Administration of prophylactic treatment [facility] Start: 05-14-2023 End: 05-14-2023 [facility] Start: 05-14-2023 Hospital admission [facility] Start: 05-14-2023 Microbial culture of sputum [facility] Start: 05-13-2023 CT Chest [facility] Start: 05-13-2023 End: 07-13-2023 CREATININE BLD CREATININE BLD Lab Routine Neoplasm of lung Expected: 05/13/2023 (Approximate), Expires: 07/13/2023 [facility] Work Phone: Comment on above: Expected: 05/13/2023 (Approximate), Expi res: 07/13/2023 Start: 05-13-2023 End: 12-27-2023 CT CHEST W IVCON CT CHEST W IVCON Radiology Routine Neoplasm of lung Expected: 05/13/2023 (Approximate), Expires: 12/27/2023 [facility] Work Phone: Comment on above: Expected: 05/13/2023 (Approximate), Expi res: 12/27/2023 Start: 04-13-2023 Behavioral Health Screening Behavioral Health Screening [facility] Start: 04-13-2023 Depression Assessment Depression Assessment [facility] Start: 12-12-2022 Covid-19 Vaccine () Covid-19 Vaccine () [facility] Start: 12-12-2022 Influenza vaccination [facility] Start: 06-06-2022 Adult depression screening assessment DEPRESSION SCREENING [facility] Start: 06-06-2022 End: 06-06-2022 CREATININE BLD CREATININE BLD Lab Routine Non-small cell cancer of left lung (HCC) Expected: 06/06/2022, Expires: 06/06/2022 [facility] Work Phone: Comment on above: Expected: 06/06/2022, Expires: 3 Start: 06-06-2022 End: 07-06-2022 Ct thorax w/contrast material CT CHEST W IVCON Radiology Routine Non-small cell cancer of left lung (HCC) Neoplasm of lung Expected: 06/06/2022, Expires: 07/06/2022 [facility] Work Phone: Comment on above: Expected: 06/06/2022, Expires: 3 Start: 04-24-2022 End: 06-24-2022 SARS-CoV-2 (COVID-19) RNA [Presence] in Respiratory specimen by KRUNAL with probe detection INTERMEDIATE RAPID COVID Microbiology Routine Preoperative examination Expected: 04/24/2022, Expires: 06/24/2022 [facility] Work Phone: Comment on above: Expected: 04/24/2022, Expires: 3 Start: 04-22-2022 End: 06-22-2022 Basic metabolic 2000 panel - Serum or Plasma BASIC METABOLIC PNL Lab STAT Lung mass Expected: 04/22/2022, Expires: 06/22/2022 [facility] Work Phone: Comment on above: Expected: 04/22/2022, Expires: 3 Start: 04-22-2022 End: 06-22-2022 CBC W Auto Differential panel - Blood CBC + DIFF Lab STAT Lung mass Expected: 04/22/2022, Expires: 06/22/2022 [facility] Work Phone: Comment on above: Expected: 04/22/2022, Expires: 3 Start: 04-13-2022 DEPRESSION ASSESSMENT DEPRESSION ASSESSMENT [facility] Start: 12-12-2021 Influenza vaccination INFLUENZA (#1) [facility] Start: 2021 RSV Vaccine (1 - 1-dose 60+ series) RSV Vaccine (1 - 1-dose 60+ series) [facility] Start: 2021 RSV Vaccine (1 - Risk 60-74 years 1-dose series) RSV Vaccine (1 - Risk 60-74 years 1-dose series) [facility] Start: 04-13-2021 DEPRESSION ASSESSMENT DEPRESSION ASSESSMENT [facility] Start: 03-02-2021 DIABETES SCREEN DIABETES SCREEN [facility] Start: 08-26-2011 SHINGRIX VACCINE (1 of 2) SHINGRIX VACCINE (1 of 2) [facility] Start: 2006 COLOGUARD (FIT-DNA) COLOGUARD (FIT-DNA) [facility] Start: 2006 Colonoscopy COLONOSCOPY [facility] Start: 2006 COLORECTAL CANCER SCREENING COLORECTAL CANCER SCREENING [facility] Start: [address] COLONOGRAPHY [facility] Start: 2006 FECAL OCCULT BLOOD FECAL OCCULT BLOOD [facility] Start: 2006 Lipid panel Lipid Screening [facility] Start: 2006 LIPID SCREEN LIPID SCREEN [facility] Start: 2006 Screening for malignant neoplasm of colon [facility] Start: 2006 SIGMOIDOSCOPY SIGMOIDOSCOPY [facility] Start: 2001 Mammography MAMMOGRAM [facility] Start: 2001 Screening for malignant neoplasm of breast Mammogram Screening [facility] Start: 08-26-1991 HPV TESTING HPV TESTING [facility] Start: 08-26-1991 Screening for malignant neoplasm of cervix HPV Testing [facility] Start: 08-26-1991 Zoledronic acid therapy ALPHA-1 ANTITRYPSIN DEFICIENCY SCREENING [facility] Start: 1982 PAP TESTING PAP TESTING [facility] Start: 1982 Screening for malignant neoplasm of cervix [facility] Start: 1980 Urine microalbumin profile [facility] [facility] Start: 08-26-1979 ANNUAL PCP TEAM CHRONIC DISEASE VISIT ANNUAL PCP TEAM CHRONIC DISEASE VISIT [facility] Start: 08-26-1979 Anxiety Screening Anxiety Screening [facility] Start: 08-26-1979 Depression Screening Depression Screening [facility] Start: 08-26-1979 HEPATITIS C SCREENING HEPATITIS C SCREENING [facility] Start: 08-26-1979 Hepatitis C screening Hepatitis C Screening [facility] Start: 08-26-1979 HIV SCREENING HIV SCREENING [facility] Start: 08-26-1979 HIV screening HIV Screening [facility] Start: 08-26-1979 SPIROMETRY SPIROMETRY [facility] Start: 08-26-1967 PNEUMOCOCCAL (1 - PCV) PNEUMOCOCCAL (1 - PCV) [facility] ic Start: 08-26-1967 Pneumococcal vaccination Pneumococcal Vaccine (1 of 2 - PCV) [facility] Start: 1966 COVID-19 VACCINE (1) COVID-19 VACCINE (1) [facility] Start: 02-25-1962 COVID-19 VACCINE (#1) COVID-19 VACCINE (#1) [facility] Albumin/Globulin ratio [facility] Anion gap measurement [facility] Basophils [#/volume] in Blood by Automated count [facility] Basophils/100 leukocytes in Blood by Automated count [facility] Bx/exc lymph node op en superficial BIOPSY/REMOVAL, LYMPH NODE(S) Procedures ALEKS Non-small cell cancer of left lung (HCC) 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) Ordered: 09/21/2023 [facility] Work Phone: Comment on above: Ordered: 09/21/2023 End: 12-26-2024 CT Chest W contrast IV CT CHEST W IVCON Radiology Routine Malignant neoplasm of unspecified part of unspecified bronchus or lung (HCC) 1 Occurrences starting 11/27/2023 until 12/26/2024 [facility] Comment on above: 1 Occurrences starting 11/27/2023 until 12/26/2024 End: 05-22-2023 Ct thorax w/o contrast material CT CHEST WO IVCON Radiology Routine Lung mass 1 Occurrences starting 04/22/2022 until 05/22/2023 [facility] Work Phone: Comment on above: 1 Occurrences starting 04/22/2022 until 05/22/2023 CYTOLOGY NON-ART SPECIALIST [facility] Work Phone: Comment on above: Release Upon Ordering for 1 Occurrences starting 05/09/2022, 1 completed End: 04-22-2023 ECG COMPLETE ECG COMPLETE ECG STAT Lung mass 1 Occurrences starting 04/22/2022 until 04/22/2023 [facility] Work Phone: Comment on above: 1 Occurrences starting 04/22/2022 until 04/22/2023 Eosinophils/100 leukocytes in Blood by Automated count [facility] Erythrocyte distribution width [Ratio] by Automated count [facility] Erythrocytes [#/volu me] in Blood [facility] Globulin [Mass/volum e] in Serum [facility] Hematocrit [Volume Fraction] of Blood [facility] Hemoglobin [Mass/volume] in Blood [facility] Leukocytes [#/volume ] corrected for nucleated erythrocytes in Blood by Automated coun [facility] Leukocytes [#/volume ] in Blood [facility] Lymphocytes [#/volum e] in Blood by Automated count [facility] Lymphocytes/100 leukocytes in Blood by Automated count [facility] MCH [Entitic mass] b y Automated count [facility] MCHC [Mass/volume] b y Automated count [facility] MCV [Entitic volume] by Automated count [facility] Monocytes [#/volume] in Blood by Automated count [facility] Monocytes/100 leukocytes in Blood by Automated count [facility] Neutrophils [#/volum e] in Blood by Automated count [facility] Neutrophils/100 leukocytes in Blood by Automated count [facility] Nucleated erythrocyt es [Presence] in Blood by Automated count [facility] Patient Education [facility] Work Phone: Patient referral [facility] Work Phone: End: 03-22-[address] attenuation skull base mid-thigh NM PET/CT SKULL-THIGH INITIAL Radiology Routine Neoplasm of lung 1 Occurrences starting 02/21/2022 until 03/22/2023 [facility] Work Phone: Comment on above: 1 Occurrences starting 02/21/2022 until 03/22/2023 End: 09-15-2024 PET+CT Guidance for localization of tumor of Skull base to mid-thigh-- W 18F-FDG IV NM PET/CT SKULL-THIGH SUBSEQUENT Radiology Routine Malignant neoplasm of unspecified part of unspecified bronchus or lung (HCC) 1 Occurrences starting 08/17/2023 until 09/15/2024 [facility] Work Phone: Comment on above: 1 Occurrences starting 08/17/2023 until 09/15/2024 End: 12-26-2024 PET+CT Guidance for localization of tumor of Skull base to mid-thigh-- W 18F-FDG IV NM PET/CT SKULL-THIGH SUBSEQUENT Radiology Routine Malignant neoplasm of unspecified part of unspecified bronchus or lung (HCC) 1 Occurrences starting 11/27/2023 until 12/26/2024 [facility] Work Phone: Comment on above: 1 Occurrences starting 11/27/2023 until 12/26/2024 Platelet mean volume [Entitic volume] in Blood by Automated count [facility] Platelets [#/volume] in Blood [facility] SARS-CoV-2 (COVID-19 ) RNA [Presence] in Respiratory specimen by KRUNAL with probe detection SELF CHECK COVID Microbiology Routine Lung mass Ordered: 04/22/2022 [facility] Work Phone: Comment on above: Ordered: 04/22/2022 SURGICAL PATHOLOGY [facility] Work Phone: Comment on above: Release Upon Ordering for 1 Occurrences starting 05/09/2022, 1 completed End: 09-16-2023 SURGICAL PATHOLOGY [facility] Work Phone: Comment on above: ONCE for 1 Occurrences starting 09/16/19 24 until 09/16/2023, 1 completed XR Chest 2 Views [facility] Immunizations Immunization Date Immunization Notes Care Provider Fa [facility] 02-27-2023 Influenza, injectabl e, Madin [place] Canine Kidney, preservative free, quadrivalent Carla Montague MD Work Phone: [facility] 02-27-2023 influenza virus vacc ine, unspecified formulation [facility] 1 Work Phone: [facility] 03-17-2022 influenza, injectabl e, quadrivalent, contains preservative Carla Montague MD Work Phone: [facility] 03-04-2022 influenza, injectabl e, quadrivalent, preservative free Vitor Kaur MD Work Phone: [facility] 03-04-2022 influenza virus vacc ine, unspecified formulation Abdi Israel MD Work Phone: [facility] 02-08-2022 influenza, seasonal, injectable Carla Montague MD Work Phone: [facility] 03-19-2021 influenza, injectabl e, quadrivalent, preservative free Vitor Kaur MD Work Phone: [facility] 02-22-2021 influenza virus vacc ine, unspecified formulation Vitor Kaur MD Work Phone: [facility] 03-02-2020 Influenza, injectabl e, Madin [place] Canine Kidney, preservative free, quadrivalent Vitor Kaur MD Work Phone: [facility] 02-10-2019 influenza, high dose seasonal, preservative-free Carla Montague MD Work Phone: [facility] 02-02-2019 Influenza, injectabl e, Madin [place] Canine Kidney, preservative free, quadrivalent Vitor Kaur MD Work Phone: [facility] 03-02-2018 influenza, injectabl e, quadrivalent, contains preservative Abdi Israel MD Work Phone: [facility] Payers Date Payer Category Payer Self-pay [id number] 2018 Medicaid [employer] [id number] 2018-Present [phone] [address] [place] [address] Medicaid [id number] 2018 Medicaid [id number] 2017 Private Health Insurance [facility] MEDICAID [id number] 1961 Unknown [id number] 2.16.840.1.919409.3.579.2. 59 1961 Unknown [id number] 2.16.840.1.916119.3.579.2. 593 1961 Unknown [id number] 2.16.840.1.650470.3.579.2. 593 1961 Unknown [id number] 2.16.840.1.176562.3.579.2. 593 1961 Unknown [id number] 2.16.840.1.727877.3.579.2. 593 1961 Unknown [id number] 2.16.840.1.924495.3.579.2. 593 1961 Unknown [id number] 2.16.840.1.576765.3.579.2. 59 1961 Unknown [id number] 2.16.840.1.942452.3.579.2. 593 1961 Unknown [id number] 2.16.840.1.251233.3.579.2. 59 1961 Unknown [id number] 2.16.840.1.985226.3.579.2. 1259 1961 Unknown [id number] 2.16.840.1.417490.3.579.2. 1258 1961 Unknown [id number] 2.16.840.1.629660.3.579.2. 9 1961 Unknown [id number] 2.16.840.1.459774.3.579.2. 9 1961 Unknown [id number] 2.16.840.1.152415.3.579.2. 1259 1959 Self-pay [id number] 1959 Unknown [id number] 1959 Unknown [id number] 2.16.840.1.166974.19 Unknown [id number] 2.16.840.1.386152.3.579.2. 531 Unknown [id number] 2.16.840.1.069074.3.579.2. 531 Unknown [id number] 2.16.840.1.202043.3.579.2. 531 Social History Date Type Detail Facility Start: 03-02-2018 End: 10-07-2022 Tobacco smoking status NHIS Ex-smoker [facility] Start: 04-13-1977 End: 04-13-2012 History of tobacco use Current smoker [facility] Start: 03-02-2018 End: 03-01-2024 Cigarettes smoked current (pack per day) - Reported 1.5 [facility] Start: 03-02-2018 End: 10-07-2022 Tobacco use and exposure Smokeless tobacco non-user [facility] Start: 06-06-2021 End: 11-17-2023 Alcohol intake Current drinker of alcohol (finding) [facility] Start: 1960 Sex Assigned At Not on file [facility] Start: 04-29-2021 End: 03-14-2022 Exposure to SARS-CoV-2 (event) Not sure [facility] Start: 04-13-1977 End: 04-13-2012 History of tobacco use Cigarette Smoker [facility] Work Phone: Start: 03-14-2022 End: 03-01-2024 Sex Assigned At [facility] Adult Depression Screening Assessment 0 [facility] Start: 1960 Sex Assigned At Female F [facility] Start: 02-23-2024 End: 02-27-2024 Sex Female (finding) [facility] Start: 11-30-2023 End: 03-01-2024 Alcoholic beverage intake Lifetime non-drinker (finding) [facility] Start: 12-02-2022 Alcohol Comment caffeine intak e: more than 4 cups per day [facility] Healthcare Goals Date Patient Goal Desired Activity /State Functional Status Date Assessment Result Facility 12-24-2023 Functional status Patient at Baseline [facility] Work Phone: Mental Status Date Assessment Result Facility 12-24-2023 Cognitive function Cognitive Sta tus Patient at Baseline [facility] Work Phone: Clinical Notes 05-14-2011 [...] 03/02/2018 Non-small cell cancer of left lung ([facility]) 04/07/2018 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 Rasmussen. Requested images be pushed to [facility]. [facility] 02-17-2024 Miscellaneous Notes Records faxed to Dr. Rasmussen. Requested images be pushed to [facility]. Emily: Please send reports and images to [...] cultures/stains). Thanks! Abdi documented in this encounter [facility] 02-17-2024 Telephone encounter Note Emily: Please [...] from 04/2022 (including any cultures/stains). Thanks! Abdi [facility] 01-29-2024 Note HNO ID: [id number] Author: ABDI ISRAEL MD Service: ? Author Type: Physician Type: Progress Notes Filed: 02/16/2024 08:32 Note Text: Radiation Oncology - Follow Up Note PATIENT NAME: CINTHIA Guerrero PATIENT DIAGNOSIS/PATIENT IDENTIFICATION: Ms. Guerrero is a 63-year-old woman with severe COPD, who is diagnosed with Stage IA3, [id number], non-small cell lung cancer arising from a [...] continues on supplemental oxygen via nasal cannula iicvwz-cjn-[id number] at 2 L/min and continues on Pulmicort [...] relate to pro (more content not included)... [facility] 01-29-2024 History of Present illness Narrative Radiation Oncology - Follow Up Note PATIENT NAME: CINTHIA Guerrero PATIENT Signed by: Abdi Israel MD I spent a total of 20 minutes on the date of the service which included preparing to see the patient, [id number] patient care, and counseling and educating the patient/family/caregiver. This document has been created with the use of voice recognition technology. It may contain inaccuracies, misspellings, inaccurate syntax or inappropriate word context that are a result of the inadequacies/shortcomings of said technology/software. documented in this encounter [facility] 01-18-2024 History of Present illness Narrative [...] PATIENT PRESENTS WITH AN IMPLANTABLE OR ATTACHED BRANCH SERVICE SPECIALIST: No RADIOLOGY DEPARTMENT: CT; Exam(s) Completed: Chest PERIPHERAL IV DATA: Site assessment: Clean,Dry and Intact, Site disposition Discontinued SIGNED BY: RT Fox(Araseli) January 18, 2024 11:28 AM documented in this encounter [facility] 01-18-2024 Note HNO ID: [id number] Author: NADIA FERNANDEZ RN Service: ? Author [...] DATE: January 18, 2024 TIME: 10:50 AM [facility] 01-18-2024 Note HNO ID: [id number] Author: SAHARA BRICENO RT(R) Service: ? Author [...] PATIENT PRESENTS WITH AN IMPLANTABLE OR ATTACHED BRANCH SERVICE SPECIALIST: No RADIOLOGY DEPARTMENT: CT; Exam(s) Completed: Chest PERIPHERAL IV DATA: Site assessment: Clean,Dry and Intact, Site disposition Discontinued SIGNED BY: RT Fox(R) January 18, 2024 11:28 AM [facility] 12-28-2023 Telephone encounter Note I talked to the Patient and have her scheduled for her CT Scan on Thursday01/18/24 at 1045 am, and her Follow up appointment with Dr. Israel on Thursday01/29/24 at 2 pm. HARJINDER Mcgowan [facility] 12-28-2023 Miscellaneous Notes I talked to the Patient and have her scheduled for her CT Scan on Thursday01/18/24 at 1045 am, and her Follow up appointment with Dr. Israel on Thursday01/29/24 at 2 pm. HARJINDER Mcgowan Cinthia Guerrero --Omaira was dc'd from [facility]-She hasn't called in to reschedule her appt's. [...] back to schedule. documented in this encounter [facility] 12-24-2023 Discharge summary Note Date/Time December 24, 2023 8:38am [facility] [address] [place] [address] Discharge Summary Signed with Dacia Patient: Cinthia Guerrero MR#: [id number] : 1960 Acct:[id number] Age/Sex: 63 / F Adm Date: 4 Loc: Room: [address] [place] [address]: Cassandra Andersen MD Copies to: [...] ask her primary care doctor to obtain [facility] record entirely to address abnormalities seen [...] primary care provider to obtain [facility] records entirely to follow up on all [...] screen for lung cancer Discharging you from [facility] does not mean that your medical care [...] signed by Cassandra Andersen MD> 12/24/23 0843 [facility] Work Phone: 1(355) 728-524409-12-2024 Telephone encounter Note* Telephone Encounter - Robb Lowe Rodney - 12/24/2023 1:58 PM EDT Cinthia Guerrero --Omaira was dc'd from [facility]-She hasn't called in to reschedule her appt's. [...] a message to call back to schedule. [facility]09-11-2024 Progress note Author Denver Rasmussen [facility] December 23, 2023 6:59pm Note Date/Time December 23, 2023 8:19am [facility] [address] [place] [address] Pulmonology Progress Note Signed Patient: Cinthia Guerrero MR#: [id number] : 1960 Acct:[id number] Age/Sex: 63 / F Adm Date: 4 Loc: Room: [address] [place] [address] Type: ADM IN Attending Dr: Cassandra Andersen [...] bronchodilators. Documented By: Denver Rasmussen MD 4 [id number] Signed By: <Electronically signed by MD Denver Rasmussen> 12/23/23 3505 [facility] Work Phone: 1(177) 592-437909-11-2024 Progress note Author Cassandra Andersen [facility] December 23, 2023 11:01am Note Date/Time December 23, 2023 11:02am [facility] [address] [place] [address] Hospitalist Progress Note Signed Patient: Cinthia Guerrero MR#: [id number] : 1960 Acct:[id number] Age/Sex: 63 / F Adm Date: 4 Loc: Room: [address] [place] [address] Type: ADM IN Attending Dr: Cassandra Andersen [...] 1,000 Ml IV 12/23/23 15:16 70 mls/hr .[id number] JYOTI Administration Melatonin 5 mg 12/20/23 22:58 [...] chest to be arranged by PCP or building materials sales attendant to screen for lung cancer. She had [...] signed by Cassandra Andersen MD> 12/23/23 1101 [facility] Work Phone: 1(990) 588-225509-10-2024 Progress note Author Denver Rasmussen [facility] December 22, 2023 7:37pm Note Date/Time December 22, 2023 8:11am [facility] [address] [place] [address] Pulmonology Progress Note Signed Patient: Cinthia Guerrero MR#: [id number] : 1960 Acct:[id number] Age/Sex: 63 / F Adm Date: 4 Loc: Room: [address] [place] [address] Type: ADM IN Attending Dr: Cassandra Andersen [...] <Electronically signed by MD Denver Rasmussen> 12/22/231936 [facility] Work Phone: 1(610) 113-851409-10-2024 Progress note Author Cassandra Andersen [facility] December 22, 2023 8:05am Note Date/Time December 22, 2023 8:05am [facility] [address] [place] [address] Hospitalist Progress Note Signed Patient: Cinthia Guerrero MR#: [id number] : 1960 Acct:[id number] Age/Sex: 63 / F Adm Date: 4 Loc: Room: [address] [place] [address] Type: ADM IN Attending Dr: Cassandra Andersen [...] chest to be arranged by PCP or building materials sales attendant to screen for lung cancer. She had 1 in April 2023 which did not show any nodules. DVT prophylax Lovenox Anxiety Xanax as needed Other medical issues not listed above To be addressed in the outpatient setting Documented By: Cassandra Andersen MD 12/22/23801 Signed By: <Electronically signed by Cassandra Andersen MD> 12/22/23804 [facility] Work Phone: 1(943) 513-622509-09-2024 Consult note Author Denver Rasmussen [facility] December 21, 2023 6:35pm Note Date/Time December 21, 2023 6:17pm [facility] [address] [place] [address] Pulmonology Consult Note Signed Patient: Cinthia Guerrero MR#: [id number] : 1960 Acct:[id number] Age/Sex: 63 / F Adm Date: 4 Loc: Room: [address] [place] [address] Type: ADM IN Attending Dr: Cassandra Andersen [...] had converted to Dr. Cross at the [facility]. Patient normally follows with Dr. Kenyon [...] increased dyspnea. Patient was seen at the [facility] and admitted for presumably acute exacerbation [...] negative unless noted below or in HPI [facility] Medical History (Updated 12/21/23 @ 09:21 by [...] culture. Documented By: Denver Rasmussen MD 4 [id number] Signed By: <Electronically signed by MD Denver Rasmussen> 12/21/23 8543 [facility] Work Phone: 1(624) 826-829509-09-2024 Progress note Author Cassandra Andersen [facility] December 21, 2023 9:22am Note Date/Time December 21, 2023 9:22am [facility] [address] [place] [address] Hospitalist Progress Note Signed Patient: Cinthia Guerrero MR#: [id number] : 1960 Acct:[id number] Age/Sex: 63 / F Adm Date: 4 Loc: 3T Room: [address] [place] [address] Type: ADM INOo Attending Dr: Cassandra Andersen MD Copies to: ~ Date of Service: 12/21/2023 Subjective Subjective Narrative: This is 61-year-old female with chronic respiratory failure secondary to COPD, on supplemental oxygen at home, pulmonary cachexia, [place] [facility] [facility]. At that [facility] COVID [...] chest to be arranged by PCP or building materials sales attendant to screen for lung cancer. She had 1 in April 2023 which did not show any nodules. Documented By: Cassandra Andersen MD 12/21/23918 Signed By: <Electronically signed by Cassandra Andersen MD> 12/21/23921 [facility] Work Phone: 1(306) 491-875209-09-2024 History and physical note Author Mg Vaughn [facility] December 20, 2023 10:58pm Note Date/Time December 20, 2023 10:58pm [facility] [address] [place] [address] Hospitalist H&P Signed Patient: Cinthia Guerrero MR#: [id number] : 1960 Acct:[id number] Age/Sex: 63 / F Adm Date: 4 Loc: Room: [address] [place] [address] Type: ADM INOo Attending Dr: Mg Vaughn MD Copies to: MD Adithya Koroma MD~ HPI DATE OF EXAMINATION: 12/20/23 CHIEF COMPLAINT: COPD exacerbation HISTORY OF PRESENT ILLNESS: This is 61-year-old female with chronic respiratory failure secondary to COPD, on supplemental oxygen at home, pulmonary cachexia, [place] [facility] [facility] [place] [facility]. At that time COVID [...] negative unless noted below or in HPI [facility] Medical History (Updated 12/20/23 @ 21:57 by [...] % (Auto) 9.8 % (.) 12/20/23 20:08 [place] % (Auto) 5.9 % (.) 12/20/23 20:08 Eos % (Auto) 0.1 % (.) 12/20/23 20:08 Baso % (Auto) 0.3 % (.) 12/20/23 20:08 Nucleat RBC Rel Count 0.1 /100 WBC (0-0.5) 12/20/23 20:08 Neut # (Auto) 7.0 x10E3/uL (1.8-7.7) 12/20/23 20:08 Lymph # (Auto) 0.8 x10E3/uL (1.00-4.8) L 12/20/23 20:08 [place] # (Auto) 0.5 x10E3/uL (0.0-0.8) 12/20/23 20:08 [...] -Will consult pulmonology. Dr. Gannon is her building materials sales attendant. -Budesonide via nebulization every 12 hours, and DuoNebs ndrjdf-jeu-siyaf. -O2 supplementation to maintain O2 sats greater [...] <Electronically signed by Mg Vaughn MD> 12/20/232257 [facility] Work Phone: 1(884) 985-621108-26-2024 NoteHNO ID: [id number] Author: TEO CRAFT MD Service: ? Author [...] mobility normal Neck Ultrasound: 12/07/2023 Ultrasound Machine: Tribotek Transducer: Linear 11 MHz Regions examined: cervical lymph nodes Sagittal and transverse views were obtained. Color and power Doppler were applied when indicated. Left neck: For surgical planning I evaluated the left cervical lymph nodes with the ultrasound. Identified 2 separate lymph nodes we (more content not included)...[facility]08-26-2024 History of Present illness Narrative* Prendes, Teo L, MD - 12/07/2023 12:20 AM EDT [place] [facility] This consult was requested by [...] mobility normal Neck Ultrasound: 12/07/2023 Ultrasound Machine: Tribotek Transducer: Linear 11 MHz Regions examined: cervical [...] Moderate Teo Craft [facility] note* Diagnosis Onset Date Resolution [...] (chronic obstructive pulmonary disease) acute February 2:29pm [facility] Work Phone: 1(220) 457-862308-19-2024 Telephone encounter Note* Telephone Encounter - Rodney Rinaldi - 11/30/2023 8:22 AM EDT Yes she has caresource unfornatuly. [facility]08-19-2024 Miscellaneous Notes* Telephone Encounter - Rodney [...] call ALEKS. Thank you [facility] Telephone encounter Note * Telephone Encounter - Rodney Rinaldi - 11/30/2023 8:10 AM EDT Patient is called and scheduled for all appointments [facility]08-16-2024 Telephone encounter Note* Telephone Encounter - Abdi Israel MD - 11/27/2023 4:20 PM EDT Signed and added a CT chest as well. Thanks! Abdi [facility]08-16-2024 Telephone encounter Note* Telephone Encounter - Julisa Pressley LPN - 11/27/2023 2:55 PM EDT Rodney: Please schedule Omaira for a PET scan then follow up with Dr. Israel. Dr. Israel: Please sign pended PET order as we discussed today. Julisa Pressley RN [facility]08-08-2024 Telephone encounter Note* Telephone Encounter - Ananya Acuna - 11/19/2023 1:49 PM EDT Person Calling:Omaira Reason for Call: requesting a work excuse for her daughter Kendal spicer 11/17 & 11/18. Pt Phone #: [phone] Pharmacy Name and # : Pt last seen: Visit date not found Ananya HEARD [facility]08-08-2024 Miscellaneous Notes* Telephone Encounter - Ananya Acuna - 11/19/2023 1:49 PM EDT Person Calling:Omaira Reason for Call: requesting a work excuse for her daughter Kendal Ruiz [facility] 11/17 & 11/18. Pt Phone #: [phone] Pharmacy Name and # : Pt last seen: Visit date not found Ananya HEARD documented in this encounterKeenan [facility]24 NoteHNO ID: [id number] Author: DORON FLORENTINO MD Service: ? Author [...] Successful intubation technique: video laryngoscopy Devices used: Donde Endotracheal tube insertion site: oral Blade size: [...] November 18, 2023 TIME: 3:55 PM CSN: [id number] Instructions* Patient Instructions* Brie Kaur PA-C - 11/17/2023 3:21 PM EDT PATIENT PREOPERATIVE INSTRUCTIONS Teo Craft MD has scheduled you for your procedure at this surgery center: [facility] [place] Scheduling Office: [phone] --[address] [place] [address]. Please read below carefully for your personalized instructions. Arrival Time for Surgery: - To obtain your arrival time for surgery, call your physician's office the day before your surgery. - If your surgery is scheduled for Thursday, call the Thursday before. Your surgeon s production control scheduler will tell you what time to call the office. - If you have not reached the departmental production control scheduler by 5 P.M., call [phone] after 5 P.M. the day before your [...] Procedures: - YOU MUST HAVE A RESPONSIBLE FISHER WEIR TAKE YOU HOME. A WELLNESS SPA MANAGER OR NURSING PROFESSOR CANNOT BE MADE A RESPONSIBLE FISHER WEIR. - We recommend that a responsible person [...] Advance Directive, please fax a copy to [phone] or email to for it to be [...] your chart that day. documented in this encounterKeenan Private Hospital08-06-2024 History and physical note * Brie [...] [place]. Follows with outside pulm at [facility], Dr. Valery DAVIS in October per pt. Diminished breath sounds bilaterally throughout, no wheezing. SpO2 95% on 2L O2. 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 Ptreports she called building materials sales attendant's office because she felt like her breathing [...] large neck Non-male patient STOP-Bang Score: 1 [id number] Score: Age: <65 Sex: female CHF history: No Hypertension history: No Stroke/TIA/thromboembolism history: No Vascular disease history: No Diabetes history: No [id number] Score: 1 ANESTHESIA FINDINGS: Intubation History: No [...] Initiated: Orders placed by surgeon/surgical service in Psychiatric. Orders Placed This Encounter Complete Blood Count [...] 11/18/23 (per pt, surgery currently 12/16/23 in Psych[facility]) at . REVIEW OF SYSTEMS: General: No [...] requiring medication, no history of angina, CHF, NV, cardiac surgery or stents. Denies rest pain, [...] or any previous visit (from the past 53134 hour(s)). Instructions Given to Patient: Instructions located in the after visit summary. Patient given verbal and written preop instructions and voices comprehension and compliance. SIGNATURE: Brie Kaur PA-C PATIENT NAME: CINTHIA Guerrero DATE: 11/17/2023 TIME: 3:00 PM PAGER/CONTACT #: [facility]08-06-2024 History and physical note* Brie Kaur [...] [place]. Follows with outside pulm at [facility], Dr. Valery DAVIS in October per pt. Diminished breath sounds bilaterally throughout, no wheezing. SpO2 95% on 2L O2. 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 Ptreports she called building materials sales attendant's office because she felt like her breathing [...] large neck Non-male patient STOP-Bang Score: 1 [id number] Score: Age: <65 Sex: female CHF history: No Hypertension history: No Stroke/TIA/thromboembolism history: No Vascular disease history: No Diabetes history: No FFW6HT3-AHPw Score: 1 ANESTHESIA FINDINGS: Intubation History: No [...] Initiated: Orders placed by surgeon/surgical service in Psychiatric. Orders Placed This Encounter Complete Blood Count [...] 11/18/23 (per pt, surgery currently 12/16/23 in Psychiatric) at . REVIEW OF SYSTEMS: General: No [...] requiring medication, no history of angina, CHF, NV, cardiac surgery or stents. Denies rest pain, [...] or any previous visit (from the past 07348 hour(s)). Instructions Given to Patient: Instructions located in the after visit summary. Patient given verbal and written preop instructions and voices comprehension and compliance. SIGNATURE: Brie Kaur PA-C PATIENT NAME: CINTHIA Guerrero DATE: 11/17/2023 TIME: 3:00 PM PAGER/CONTACT #: documented in this encounterKeenan Private Hospital08-05-2024 Telephone encounter Note * Telephone Encounter - Abdi Israel MD - 11/16/2023 5:41 PM EDT Spoke with Ms. Guerrero ... Will plan for a CT chest after she is recovered from her procedure and path is final. Thanks! Abdi [facility]08-05-2024 Telephone encounter Note* Telephone Encounter - [...] would appreciate a call ALEKS. Thank you [facility]07-16-2024 Nurse Note* Rodney Barry MA - 10/27/2023 11:27 AM EDT Tobacco Use: 1.5 packs/day, for 35 years. Quit 04/13/2012. Types: Cigarettes Was smoking cessation packet given? N/A - Patient is a non-smoker or quit >1 year ago. Was a referral initiated?N/A Patient is a non-smoker [facility]07-16-2024 Nurse Note* Rodney Barry MA - 10/27/2023 11:27 AM EDT Tobacco Use: 1.5 packs/day, for 35 years. Quit 04/13/2012. Types: Cigarettes Was smoking cessation packet given? N/A - Patient is a non-smoker or quit >1 year ago. Was a referral initiated?N/A Patient is a non-smoker documented in this encounterKeenan Private Hospital06-18-2024 Telephone encounter Note * Telephone Encounter - Rodney Rinaldi - 09/29/2023 8:10 AM EDT Patient is scheduled and they have been calling her with appointment. [facility]06-18-2024 Miscellaneous Notes* Telephone Encounter - Rodney [...] Pressley LPN; Silvia Jha RN; Rodney Rinaldi Nm Dr. Mcintyre - I appreciate the update and the context for the pathology results. Rashid/Ang/Tiff - please refer Ms. Guerrero to Dr. Craft for consideration of excisional biopsy. Thanks! Abdi Dailey please place orders, thank you! documented in this encounterKeenan [facility] Hospital06-14-2024 Telephone encounter Note * Telephone Encounter - Rodney Rinaldi - 09/25/2023 7:21 AM EDT Email sent to cancer answer line for scheduling thanks [facility]06-13-2024 Telephone encounter Note* Telephone Encounter - Silvia Jha RN - 09/24/2023 3:32 PM EDT Tiff- Dr Israel signed ENT order for Dr Craft. Please schedule and let him know when this consult can be done. Thank you! Silvia Jha RN [facility]06-12-2024 Telephone encounter Note* Telephone Encounter - Silvia Jha RN - 09/23/2023 8:[address] Israel- please sign pended ENT order so Rodney can contact Dr Craft for consult. Silvia Jha RN [facility]06-10-2024 Telephone encounter Note* Telephone Encounter - Silvia Jha RN - 09/21/2023 9:05 AM EDT Order pended- please review before signing. Silvia Jha RN [facility]06-10-2024 Telephone encounter Note* Telephone Encounter - Rodney Rinaldi - 09/21/2023 7:16 AM EDT Images from the original note were not included. Abdi Israel MD Stock, Khushboo Linda MD, MD Cc: Julisa Pressley LPN; Silvia Jha, LUCIE; Rodney Rinaldi Dr. - I appreciate the update and the context for the pathology results. Rashid/Ang/Tiff - please refer Ms. uGerrero to Dr. Craft for consideration of excisional biopsy. Thanks! Abdi Dailey please place orders, thank you! [facility]06-05-2024 Surgery Surgical operation note* Brief Op Note - Khushboo Mcintyre MD, MD - 09/16/2023 11:06 AM EDTSummary: Left cervical lymph node biopsy BRIEF OPERATIVE / PROCEDURE NOTE LOG ID: [id number] SURGERY/PROCEDURE DATE: 09/16/2023 INCISION/PROCEDURE START TIME: 10:42 AM INCISION CLOSE/PROCEDURE END TIME: 11:02 AM SURGEON(S)/PROCEDURALIST(S) AND ATTENDANT CAMPGROUND(S): Surgeon(s) and Role: * Khushboo Mcintyre MD, [...] DATE: September 16, 2023 TIME: 11:06 AM [facility] Work Phone: 1(349) 868-236406-05-2024 Surgical operation note* Brief Op Note - Khushboo Mcintyre MD, MD - 09/16/2023 11:06 AM EDTSummary: Left cervical lymph node biopsy BRIEF OPERATIVE / PROCEDURE NOTE LOG ID: [id number] SURGERY/PROCEDURE DATE: 09/16/2023 INCISION/PROCEDURE START TIME: 10:42 AM INCISION CLOSE/PROCEDURE END TIME: 11:02 AM SURGEON(S)/PROCEDURALIST(S) AND ATTENDANT CAMPGROUND(S): Surgeon(s) and Role: * Khushboo Mcintyre MD, [...] 2023 TIME: 11:06 AM documented in this encounterKeenan Private Hospital06-05-2024 Instructions* Patient Education - Rashid Howell [...] Signed By: Rashid Howell RN In [facility] [id number] [facility]06-05-2024 Miscellaneous Notes* Patient Education - Rashid [...] Department: HOSP MAIN FB36 documented in this encounterKeenan Private Hospital06-03-2024 Telephone encounter Note * Telephone Encounter - Abdi Israel MD - 09/14/2023 10:56 AM EDT Thanks! Abdi [facility]06-03-2024 Miscellaneous Notes* Telephone Encounter - Abdi [...] neck seen on PET CT at either [facility] or [facility]. Thanks! Abdi documented in this encounterKeenan Private Hospital06-03-2024 Telephone encounter Note * Telephone Encounter - Rodney Rinaldi - 09/14/2023 10:31 AM EDT Patient is scheduled 09/15 for biopsy [facility]06-03-2024 Nurse Note* Yakelin Onofre LPN - 09/14/2023 10:29 AM EDT Pre- e instructions: Address: [address] Contacted patient and confirmed appt. for biopsy scheduled on 09/16/23, at [facility]. Diet: Procedure to be done with local anesthetic, you may eat, drink and take medications as prescribed the day of this procedure. Medications: IF ok with your Prescribing Provider: RADIOLOGY RECOMMENDS THESE MEDICATION RESTRICTIONS : None Labs: Lab work needs to be drawn by 09/15/23 at any [facility]. Arrival: Please bring your Photo ID and Insurance Card. A general consent may need to be signed. Arrival at 8:30am to desk QB-1 ([facility]) and check in for your procedure. Gang Pusher/Transportation: Gang Pusher not necessary Written instructions provided to patient via [employer] If you have any questions please call [phone] [facility]06-03-2024 Nurse Note* Yakelin Onofre LPN - 09/14/2023 10:29 AM EDT Pre- e instructions: Address: [address] Contacted patient and confirmed appt. for biopsy scheduled on 09/16/23, at [facility]. Diet: Procedure to be done with local anesthetic, you may eat, drink and take medications as prescribed the day of this procedure. Medications: IF ok with your Prescribing Provider: RADIOLOGY RECOMMENDS THESE MEDICATION RESTRICTIONS : None Labs: Lab work needs to be drawn by 09/15/23 at any [facility]. Arrival: Please bring your Photo ID and Insurance Card. A general consent may need to be signed. Arrival at 8:30am to desk QB[facility]1 ([facility]) and check in for your procedure. Gang Pusher/Transportation: Gang Pusher not necessary Written instructions provided to patient via [employer] If you have any questions please call [phone] documented in this encounterKeenan Private Hospital06-03-2024 Telephone encounter Note * Telephone Encounter - Neha Leyva - 09/14/2023 10:17 AM EDT Spoke to pt and scheduled biopsy for 09/16/23. [facility]06-03-2024 Miscellaneous Notes* Telephone Encounter - Neha [...] this procedure: intermediate-high risk. Reference from [facility] Experience Design Director: https://ccf.policytech.com/dotNet/documents/?cmuis=74891 STAFF SIGNATURE: Osito Galicia MD DATE: September [...] 10:44am REQUESTING STAFF: Abdi Israel MD PHONE/PAGER: [phone] SPECIFICS OF THE REQUEST:Cervical lymph node bx SPECIAL REQUESTS: TISSUE SAMPLE, LABWORK: N/A IS THIS REQUEST PART OF A RESEARCH PROTOCOL: No MEDICAL DIAGNOSIS: Malignant neoplasm of unspecified part of unspecified bronchus or lung (HCC) [C34.90] TYPE AND DATE OF THE EXAM THAT IS THE BASIS OF THE REQUEST: PET 09/01/2023 IMAGING: [facility] Note to all persons requesting biopsies: All biopsy requests will be scheduled as quickly as possible, based on the clinical urgency, availability of appointment times, the need to hold anti-thrombolytic therapy (aspirin, blood thinners) and the patient s schedule, including the need for an available milk delivery driver. If a percutaneous biopsy or drainage is not felt to be safe or an alternative method for establishing a diagnosis is possible, this will be discussed directly with the requesting physician. documented in this encounterKeenan Private Hospital06-03-2024 Telephone encounter Note * Telephone Encounter - Rodney Rinaldi - 09/14/2023 9:55 AM EDT Hey Girl, just checking on this one thanks [facility]05-29-2024 Telephone encounter Note* Telephone Encounter - [...] this procedure: intermediate-high risk. Reference from [facility] Experience Design Director: https://ccf.policyFaction [employer]is.com/dotNet/documents/?avnll=97766 STAFF SIGNATURE: Osito Galicia MD DATE: September 09, 2023 TIME: 9:31 AM [facility] Work Phone: 1(636) 712-467305-28-2024 Telephone encounter Note* Telephone Encounter - Yakelin [...] DATE: September 08, 2023 TIME: 11:34 AM [facility]05-28-2024 Telephone encounter Note* Telephone Encounter - Chloe Nicole - 09/08/2023 10:43 AM EDTSummary: Cervical lymph node bx RADIOLOGY CALL CENTER INTAKE DATE: 09/08/2023 TIME: 10:44am REQUESTING STAFF: Abdi Israel MD PHONE/PAGER: [phone] SPECIFICS OF THE REQUEST:Cervical lymph node bx SPECIAL REQUESTS: TISSUE SAMPLE, LABWORK: N/A IS THIS REQUEST PART OF A RESEARCH PROTOCOL: No MEDICAL DIAGNOSIS: Malignant neoplasm of unspecified part of unspecified bronchus or lung (HCC) [C34.90] TYPE AND DATE OF THE EXAM THAT IS THE BASIS OF THE REQUEST: PET 09/01/2023 IMAGING: [facility] Note to all persons requesting biopsies: All biopsy requests will be scheduled as quickly as possible, based on the clinical urgency, availability of appointment times, the need to hold anti-thrombolytic therapy (aspirin, blood thinners) and the patient s schedule, including the need for an available milk delivery driver. If a percutaneous biopsy or drainage is not felt to be safe or an alternative method for establishing a diagnosis is possible, this will be discussed directly with the requesting physician. [facility]05-28-2024 Telephone encounter Note* Telephone Encounter - Abdi Israel MD - 09/08/2023 10:37 AM EDT Signed - thanks! Abdi [facility]05-28-2024 Telephone encounter Note* Telephone Encounter - Abdi Israel MD - 09/08/2023 9:51 AM EDT Yes please - Abdi [facility]05-28-2024 Telephone encounter Note* Telephone Encounter - Rodney Rinaldi - 09/08/2023 7:23 AM EDT Images from the original note were not included. Abdi Israel MD Graves, Ariana, LPN Cc: Silvia Jha RN; Rodney Rinaldi Please set Ms. Guerrero up for an US guided biopsy of one of the lymph nodes in the neck seen on PET CT at either [facility] or [facility]. Thanks! Abdi [facility]05-21-2024 Consult note* Stacia Irving RN - [...] 2023 TIME: 12:54 PM documented in this encounterKeenan Private Hospital05-21-2024 History of Present illness Narrative* Sahara [...] 1248 PATIENT DISCHARGED TO: Ambulatory patient, left [place] department area. A Diagnostic radioactive procedure has taken place, with no further precautions necessary other than routine body substance precautions. More information regarding radiation safety can be found usingthis link: [email or web address]-% 20Diagnostic%20Nuclear%20Medicine%20Procedures.pdf SIGNATURE: RT Fox(Araseli) PATIENT NAME: CINTHIA Guerrero DATE: September 01, 2023 TIME: 1:23 PM PAGER/CONTACT #: documented in this encounterKeenan Private Hospital05-21-2024 NoteHNO ID: [id number] Author: YOVANNO, SAHARA, RT(R) Service: ? Author [...] 1248 PATIENT DISCHARGED TO: Ambulatory patient, left [place] department area. A Diagnostic radioactive procedure has taken place, with no further precautions necessary other than routine body substance precautions. More information regarding radiation safety can be found using this link: [email or web address]%[email or web address]-% 20Diagnostic%20Nuclear%20Medicine%20Procedures.pdf SIGNATURE: RT Fox(R) PATIENT NAME: CINTHIA Guerrero DATE: September 01, 2023 TIME: 1:23 PM PAGER/CONTACT #:[facility]05-21-[facility]24 Progress note * Stacia Irving RN [...] DATE: September 01, 2023 TIME: 12:54 PM [facility]05-15-2024 Progress note Author Denver Rasmussen [facility] December 24, 2023 2:47pm Note Date/Time December 24, 2023 2:43pm [facility] [address] [place] [address] Pulmonology Progress Note Signed Patient: Cinthia Guerrero MR#: [id number] : 1960 Acct:[id number] Age/Sex: 63 / F Adm Date: 4 Loc: Room: [address] [place] [address] Type: ADM IN Attending Dr: Cassandra Andersen [...] 02/23/2024. Documented By: Denver Rasmussen MD 4 [id number] Signed By: <Electronically signed by MD Denver Rasmussen> 12/24/23 [address] [facility] Work Phone: 1(245) 817-459605-07-2024 Telephone encounter Note* Telephone Encounter - Rodney Rinaldi - 08/18/2023 9:14 AM EDT Seen patient checked her mychart yesterday for appointments. [facility]07[facility]24 Miscellaneous Notes* Telephone Encounter - Rodney [...] us know she had a CT at [facility] ordered per Dr Kenyon yesterday. He called her today to let her know that there was something concerning and he wanted her to contact our office. CT report printed from [facility] and images requested. Dr Israel- please advise when you have had a chance to review. Thank you Silvia Jha RN documented in this encounterKeenan Private Hospital05-06-2024 Telephone encounter Note * Telephone Encounter - Rodney Rinaldi - 08/17/2023 1:18 PM EDT Called patient and left message with date and time of Time, due to her insurance It has to be put out 2 weeks I told her to please call me back if she has any questions thank you. [facility]05-06-2024 Telephone encounter Note* Telephone Encounter - Silvia Jha RN - 08/17/2023 1:00 PM EDT Scan from July was CXR. Per LORENZO, no need to get images. PSS- I spoke to pt and she is expecting your call to arrange PET here. Thank you Silvia Jha RN [facility]05-06-2024 Telephone encounter Note* Telephone Encounter - Abdi Israel MD - 08/17/2023 9:57 AM EDT Definite changes in the left chest from previous available scan in April. Ordered PET to further characterize findings and please request CT Chest images from 07/2023. Thanks! Abdi [facility]05-03-2024 Telephone encounter Note* Telephone Encounter - Silvia Jha RN - 08/14/2023 9:33 AM EDT Pt called in to let us know she had a CT at [facility] ordered per Dr Kenyon yesterday. He called her today to let her know that there was something concerning and he wanted her to contact our office. CT report printed from [facility] and images requested. Dr Israel- please advise when you have had a chance to review. Thank you Silvia Jha RN [facility]02-12-2024 NoteHNO ID: [id number] Author: ABDI ISRAEL MD Service: ? Author Type: Physician Type: Progress Notes Filed: 06/09/2023 01:43 Note Text: Radiation Oncology - Follow Up Note PATIENT NAME: CINTHIA Guerrero PATIENT DIAGNOSIS/PATIENT IDENTIFICATION: Ms. Guerrero is a 62-year-old woman with severe COPD, who is diagnosed with Stage IA3, [id number], non-small cell lung cancer arising from a [...] remains on supplemental oxygen at 2 L/min [id number] and continues on Pulmicort and albuterol rescue inhaler. He denies cough or hemoptysis or chest pain or difficulty swallowing today. She does note fatigue with stable appetite and hydration. 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 She otherwise denies any recent fevers, chills, [...] COPD, who is diagnosed with Stage IA3, [id number], non-small cell lung cancer arising from a [...] in the process of transitioning care between building materials sales attendant. She had repeat CT imaging of the [...] which included preparing to see the patient, pffx-qr-cnwr patient care, and counseling and educating the patient/family/caregiver. This document has been created with the use of voice recognition technology. It may contain inaccuracies, misspellings, inaccurate syntax or inappropriate word context that are a result of the inadequacies/shortcomings of said technology/software.[facility]-07[facility] Miscellaneous Notes* Telephone Encounter - Rodney Rinaldi - 05/20/2023 9:59 AM EST Patient is called and scheduled for next week * Telephone Encounter - Silvia Jha RN - 05/20/2023 9:51 AM EST Pt called in and was admitted to [facility] last week. They did CT Chest. She has been waiting on insurance approval for a chest CT and will not need one now. She would like follow up arranged. Reports printed from [facility] and images requested. PSS- please call pt and arrange follow up with Dr Israel for next week. Thank you Silvia Jha RN documented in this encounterKeenan Private Hospital08-17-2023 History of Present illness Narrative* Abdi Israel MD - 11/27/2022 10:30 AM EDT Images from the original note were not included. Radiation Oncology - Follow Up Note PATIENT NAME: CINTHIA Guerrero PATIENT DIAGNOSIS/PATIENT IDENTIFICATION: Ms. Guerrero is a 62-year-old woman with severe COPD, who is diagnosed with Stage IA3, [id number], non-small cell lung cancer arising from a [...] been following up with pulmonary therapy at [facility] and with her building materials sales attendant Dr. Driver and using her nebulizers. She [...] COPD, who is diagnosed with Stage IA3, [id number], non-small cell lung cancer arising from a [...] for disease progression locally or elsewhere in formerly [facility]. She will follow with her building materials sales attendant Dr. Driver to optimize her respiratory function [...] which included preparing to see the patient, tirw-wl-wlvu patient care, and counseling and educating the patient/family/caregiver. This document has been created with the use of voice recognition technology. It may contain inaccuracies, misspellings, inaccurate syntax or inappropriate word context that are a result of the inadequacies/shortcomings of said technology/software. documented in this encounterKeenan Private Hospital08-08-2023 Miscellaneous Notes* Telephone Encounter - Julisa [...] and Dr Driver. Images/report being pushed from [facility]. Rosa Victoria RN * Telephone Encounter - Abdi Israel MD - 11/18/2022 2:11 PM EDT Yes, please cancel CT tomorrow. In addition to the images, please request any office notes from Dr. Kenyon as well as her building materials sales attendant. Thanks! Abdi * Telephone Encounter - Rosa Victoria RN - 11/18/2022 1:39 PM EDT Pt called for CT 11/19/[address]. [address] completed 09/24/22 at [facility]. CT chest verified and will send images/report. LORENZO: Would you like to cancel CT? Please advise Rosa Victoria RN documented in this [place] [facility]* Encounter Date Diagnosis Assessment [...] History of lung cancer (ICD-10 - Z85.118) [employer] Other 02-20-2023 History of Present illness Narrative* Abdi Israel MD - 06/02/2022 11:53 PM EST Radiation Oncology - Follow Up Note PATIENT NAME: CINTHIA Guerrero PATIENT Signed by: Abdi Israel MD I spent a total of 20 minutes on the date of the service which included preparing to see the patient, zmqy-mg-obax patient care, and counseling and educating the patient/family/caregiver. This document has been created with the use of voice recognition technology. It may contain inaccuracies, misspellings, inaccurate syntax or inappropriate word context that are a result of the inadequacies/shortcomings of said technology/software. documented in this encounterKeenan [facility] Hospital[facility] Evaluation note* Encounter Date Diagnosis Assessment [...] History of lung cancer (ICD-10 - Z85.118) [employer] Other 02-01-2023 Miscellaneous Notes* Telephone Encounter - Abdi Israel MD - 05/14/2022 10:40 PM EST Thanks! Abdi * Telephone Encounter - Kendal Jha [facility] - 05/14/2022 1:59 PM EST Records faxed to Dr. Conde. Requested images be pushed to [facility]. * Telephone Encounter - Telma Pak - 05/14/2022 1:26 PM EST Patient has been scheduled with Dr. Conde on 05/22/21. Patient has been called & made aware of appointment. Emily: Please send specified documents to Dr. Conde. Fax cover sheet in your mailbox. Thanks, Telam Pak * Telephone Encounter - Abdi Israel MD - 05/14/2022 12:06 PM EST Discussed pathology results from bronch/EBUS with the patient yesterday showing fungal/aspergillus infection. Spoke with her building materials sales attendant, Dr. Cross, today and agreed to refer [...] Thanks Julisa Pressley LPN documented in this encounterKeenan [facility] Hospital01-27-[facility]23 History of Present illness Narrative* Interface Note - 05/09/2022 8:00 PM EST Epic Scheduled Downtime: 05/10/2022 1:00:00 AM to 05/10/2022 3:56:00 AM documented in this encounterKeenan Private Hospital01-27-2023 Nurse Note* Luz Maria Blanca RN [...] Luz Maria Blanca RN documented in this encounterKeenan Private Hospital01-24-2023 History of Present illness Narrative* [place] [...] 06, 2022 8:53 AM documented in this encounterKeenan [facility] Hospital01-16-[facility]23 History of Present illness Narrative* Vitor Kaur MD - 04/28/2022 3:03 PM EST VIRTUAL VISIT PROGRESS NOTE This is a virtual visit using Submitnet video visit. It required patient-provider interaction for [...] eating well. COPD managed locally by a building materials sales attendant. HISTORY REVIEWED (electronic chart updated): PAST MEDICAL [...] Emphysema. Controlled and stable; managed by local building materials sales attendant. I spent a total of 60 minutes on the date of the service which included preparing to see the patient, rekp-qg-akys patient care, completing clinical documentation, obtaining and/or reviewing separately obtained history, performing a medically appropriate examination, counseling and educating the pat ient/family/caregiver, ordering medications, tests, or procedures, communicating with other HCPs (not separately reported), independently interpreting results (not separately reported), communicatingresults to the patient/family/caregiver, and care coordination (not separately reported) Vitor Kaur MD April 28, 2022 documented in this encounterKeenan Private Hospital01-11-2023 Miscellaneous Notes* Telephone Encounter - Telma Pak - 04/23/2022 9:58 AM EST Patient has been scheduled for both & confirmed appt day & time. Telma Pak * Telephone Encounter - Telma Pak - 04/23/2022 9:10 AM EST Called patient to schedule her for EKG & labs per e-mail. No answer, LMOV requesting a returnedphone call. Telma Pak documented in this encounterKeenan Private Hospital01-10-2023 History of Present illness Narrative* Vitor Kaur MD - 04/22/2022 3:49 PM EST Bronchoscopy Request: Please schedule patient for the following: Outpatient Visit: Bronch Only, visit not needed (last H&P Date: 04/28/2022) Bronchoscopy Procedures: Navigation [facility] Diagnosis/Reason for Bronchoscopy: Lung nodule [...] try to get labs/EKG/COVID swab done at [facility] Cancer Does the pt need cardiac clearance?: No Is she on anticoagulants/anti-plt therapy?: No Nursing Considerations: (ie: senior living, TB, respiratory isolation, clinical trial, Specific protocol etc.) none Additional notes to the tool planer set up 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 Please try to access the PET avid area if possible. Consultation request/referral by: Abdi Israel MD ([facility]) Reviewed by: PHANI Kaur MD April 22, 2022 3:49 PM Addendum: CBC with diff: WBC 6.81 03/02/2018 RBC 4.94 03/02/2018 Hemoglobin 14.7 03/02/2018 Hematocrit 44.5 03/02/2018 MCV 90.1 03/02/2018 MCH 29.8 03/02/2018 MCHC 33.0 03/02/2018 RDW-CV 12.4 03/02/2018 Platelet Count 234 03/02/2018 MPV 10.3 03/02/2018 Neut% 64.3 03/02/2018 Lymph% 25.3 03/02/2018 [facility] Johns% 9.1 03/02/2018 Eosin% 0.7 03/02/2018 Baso% 0.6 03/02/2018 Abs Neut (ANC) 4.36 03/02/[address] Johns 0.62 03/02/2018 Abs Eosin 0.05 03/02/2018 Abs [...] - 0.96 mg/dL Final documented in this encounterKeenan Private Hospital01-10-2023 Miscellaneous Notes* Telephone Encounter - Julisa [...] time. Julisa Pressley LPN documented in this encounterKeenan Private Hospital12-02-2022 History of Present illness Narrative* Abdi Israel MD - 03/14/2022 11:44 PM EST Radiation Oncology - Follow Up Note PATIENT NAME: Omaira Guerrero PATIENT Signed by: Abdi Israel MD I spent a total of 20 minutes on the date of the service which included preparing to see the patient, rcww-cr-urfs patient care, and counseling and educating the patient/family/caregiver. This document has been created with the use of voice recognition technology. It may contain inaccuracies, misspellings, inaccurate syntax or inappropriate word context that are a result of the inadequacies/shortcomings of said technology/software. documented in this encounterKeenan Private Hospital11-25-2022 History of Present illness Narrative* Stacia [...] 735 PATIENT DISCHARGED TO: Ambulatory patient, left [place] department area. A Diagnostic radioactive procedure has taken place, with no further precautions necessary other than routine body substance precautions. More information regarding radiation safety can be found usingthis link: [email or web address] SIGNATURE: RT Fox(R) PATIENT NAME: Omaira Guerrreo DATE: March 07, 2022 TIME: 7:51 AM PAGER/CONTACT #: documented in this encounterKeenan Private Hospital11-11-2022 Miscellaneous Notes* Telephone Encounter - Telma [...] then follow-up to review documented in this encounterKeenan Private Hospital11-10-2022 Miscellaneous Notes* Telephone Encounter - Julisa [...] then follow-up to review documented in this encounterKeenan Private Hospital02-24-2022 History of Present illness Narrative* Abdi Israel MD - 06/06/2021 4:50 PM EST Radiation Oncology - Follow Up Note PATIENT NAME: Omaira Guerrero PATIENT DIAGNOSIS/PATIENT IDENTIFICATION: Ms. Guerrero is a 60-year-old woman with severe COPD, who is diagnosed with Stage IA3, [id number], non-small cell lung cancer arising from a [...] COPD, who is diagnosed with Stage IA3, [id number], non-small cell lung cancer arising from a [...] which included preparing to see the patient, jsiw-ic-vmqd patient care and counseling and educating the patient/family/caregiver. This document has been created with the use of voice recognition technology. It may contain inaccuracies, misspellings, inaccurate syntax or inappropriate word context that are a result of the inadequacies/shortcomings of said technology/software. documented in this encounterKeenan Private Hospital02-16-2022 History of Present illness Narrative* Stacia [...] 29, 2021 11:02 AM documented in this encounterKeenan Private Hospital10-01-2021 NoteChief Complaint consultation for nevus HPI Staff 60 year old female presents on consultation from Dr. Kenyon for right lower leg fresh colored skin lesion. Present for 4 months. Scabbed area from recent trama. Denies itching. Also notes dark pigmentedlesion to right alevism. Present 4 months. Does not bleed or itch. History of Present Illness 60 yo female with h/o COPD, previous lung cancer, on oxygen; referred for changing skin lesions; right lower extremity lesion enlarging; recently scratched so scabbed over; no bleeding; right alevism lesion with small scab, no pain or [...] nodes, cyanosis, clubbing. Skin: no rashes right alevism with 4 mm raised, erythematous lesion with [...] infarction: Brother. Cardiac arrest: Mother, Father and Sister.[facility] HospitalComment on above:Result Comment: Electronically Signed By: JIM DAVENPORT, Jose Domínguez\Date and Time Signed: 01/11/21 11:20 [id number] History general Narrative - Reported* Type Description Date Medical History COPD Surgical History appendectomy Surgical History csection Hospitalization History PNA at [place] 05/2011 [employer] Other Evaluation note* Diagnosis Non-small cell cancer of left lung (HCC)- Primary Neoplasm of lung Neoplasm of unspecified nature of respiratory system [facility]* Diagnosis Neoplasm of lung- Primary Neoplasm of unspecified nature of respiratory system [facility]* Diagnosis Non-small cell cancer of left lung (HCC)- Primary [facility]* Diagnosis Lung mass- Primary Swelling, mass, or lump in chest [facility] this [facility]* Diagnosis Preoperative examination- Primary Preoperative examination, unspecified Bronchiolar disease Other diseases of trachea and bronchus documented in this encounter [facility] note* Diagnosis Non-small cell cancer of left lung (HCC)- Primary Lung mass Swelling, mass, or lump in chest Centrilobular emphysema (HCC) Other emphysema Bronchiolar disease Other diseases of trachea and bronchus [facility]* Diagnosis Bronchiolar disease Other diseases of trachea and bronchus Lung nodule Solitary pulmonary nodule documented in this encounter [facility] note* Diagnosis Aspergillus pneumonia (HCC)- Primary Aspergillosis Non-small cell cancer of left lung (HCC) documented in this encounter [facility] note* Diagnosis Non-small cell cancer of left lung (HCC)- Primary documented in this encounter [facility] noteNo [employer] Other evaluation note* Diagnosis Neoplasm of lung- Primary Neoplasm of unspecified nature of respiratory system documented in this encounter [facility] note* Diagnosis Onset Date Resolution Status Chronic respiratory failure with hypoxia acute COPD exacerbation acute Exertional shortness of breath acute Pneumonia acute Pulmonary cachexia due to COPD acute Tachycardia acute [facility] Work Phone: evaluation note* Diagnosis Onset Date Resolution Status Acute hypoxic respiratory failure acute Cachexia acute Chronic respiratory failure with hypoxia acute COPD exacerbation acute Exertional shortness of breath acute Pneumonia acute Pulmonary cachexia due to COPD acute Tachycardia acute [facility] Work Phone: evaluvfbsw note* Diagnosis Malignant neoplasm of unspecified part of unspecified bronchus or lung (HCC)- Primary [facility] in [facility] encounter [facility]* Diagnosis Neoplasm- Primary Neoplasm of unspecified nature, site unspecified documented in this encounter [facility] note* Diagnosis Onset Date Resolution Status Chronic respiratory failure with hypoxia acute COPD (chronic obstructive pulmonary disease) acute [facility] Work Phone: evaluzlibs note* Diagnosis Non-small cell cancer of left lung (HCC)- Primary 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 Follows with outside pulm at [facility], Dr. Valery DAVIS in October per pt. Diminished breath sounds bilaterally throughout, no wheezing. SpO2 95% on 2L O2. 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 Ptreports she called building materials sales attendant's office because she felt like her breathing [...] treated with SBRT. documented in this encounter [facility]* Diagnosis Onset Date Resolution [...] hazards to health documented in this [facility]* Diagnosis Malignant neoplasm of unspecified part [...] hazards to health documented in this [facility]* Diagnosis Onset Date Resolution Status Chronic respiratory failure with hypoxia acute COPD (chronic obstructive pulmonary disease) acute Chronic respiratory failure with hypoxia acute COPD (chronic obstructive pulmonary disease) acute Sleep apnea, obstructive acu te Chronic respiratory failure with hypoxia acute COPD (chronic obstructive pulmonary disease) acute Pulmonary cachexia due to COPD acute Sleep apnea, obstructive acu te [facility] Work Phone: Evaluation note* Diagnosis Malignant [...] hazards to health documented in this encounter [facility]* Diagnosis Onset Date Resolution [...] COPD acute Sleep apnea, obstructive acu te [facility] Work Phone: Evaluation note* Diagnosis Lung [...] hazards to health documented in this encounter [facility]* Diagnosis Neoplasm of lung Neoplasm of [...] hazards to health documented in this [facility]* Diagnosis Neoplasm of lung Neoplasm of [...] hazards to health documented in this encounter [facility]* [...] or lung (HCC) documented in this encounter [facility] note* Diagnosis Preoperative examination- Primary [...] (HCC)- Primary documented in this encounter [facility] note* Diagnosis Right ear impacted cerumen- Primary Impacted cerumen Foreign body of left ear, initial encounter documented in this encounter [facility] and physical note Author Mg Vaughn [facility] December 20, 2023 10:58pm Note Date/Time December 20, 2023 10:58pm [facility] [address] [place] [address] Hospitalist H&P Signed Patient: Cinthia Guerrero MR#: [id number] : 1960 Acct:[id number] Age/Sex: 63 / F Adm Date: 4 Loc: Room: [address] [place] [address] Type: ADM INOo Attending Dr: Mg Vaughn MD Copies to: MD Adithya Koroma MD~ HPI DATE OF EXAMINATION: 12/20/23 CHIEF COMPLAINT: COPD exacerbation HISTORY OF PRESENT ILLNESS: This is 61-year-old female with chronic respiratory failure secondary to COPD, on supplemental oxygen at home, pulmonary cachexia, [facility]. At that time COVID [...] negative unless noted below or in HPI [facility] Medical History (Updated 12/20/23 @ 21:57 by [...] % (Auto) 9.8 % (.) 12/20/23 20:08 [facility] Johns % (Auto) 5.9 % (.) 12/20/23 20:08 Eos % (Auto) 0.1 % (.) 12/20/23 20:08 Baso % (Auto) 0.3 % (.) 12/20/23 20:08 Nucleat RBC Rel Count 0.1 /100 WBC (0-0.5) 12/20/23 20:08 Neut # (Auto) 7.0 x10E3/uL (1.8-7.7) 12/20/23 20:08 Lymph # (Auto) 0.8 x10E3/uL (1.00-4.8) L 12/20/23 20:08 [facility] Johns # (Auto) 0.5 x10E3/uL (0.0-0.8) 12/20/23 20:08 [...] -Will consult pulmonology. Dr. Gannon is her building materials sales attendant. -Budesonide via nebulization every 12 hours, and DuoNebs syvmml-uuc-ilfis. -O2 supplementation to maintain O2 sats greater [...] <Electronically signed by Mg Vaughn MD> 12/20/232257 [facility] Work Phone: Hospital Discharge instructions Additional Instructions I may not have addressed or treated all of your medical illnesses or the abnormal blood work or imaging studies during this hospitalization. Please ask your primary care provider to obtain [facility] records entirely to follow up on all of the abnormal physical, laboratory, and imaging findings that I have not addressed. Please return back to the emergency room or seek medical attention if your symptoms worsen or return. You asked me to give you the name of the lung specialist who is affiliated with [facility]. Please follow-up with Dr. Rasmussen regarding COPD, lung nodule and pulmonary care. Until you get your first appointment with Dr. Rasmussen, continue to follow-up with Dr. Driver guarding your lung nodule and COPD You would need to have follow-up on lung nodule that is seen before Discharging you from [facility] does not mean that your medical care [...] Thank you. Continue home oxygen per chronic orders.[facility] Work Phone: Reason for referral (narrative)* Diagnostic Procedure Only (Routine) - Additional Clinical Info Needed Specialty Diagnoses / Procedures Referred By Contac t Referred To Contact MOLECULAR & FUNCTIONAL IMAGING Diagnoses Neoplasm of lung Procedures NM PET/CT SKULL-THIGH INITIAL PET IMAGING CT ATTENUATION SKULL BASE MID-THIGH Abdi Israel MD [address] [place] [address] [place] [address] Molecular & Functional Imaging [address] [place] [id number] Referral ID Status Reason Start Date Expiration Date Visits Requested Visits Authorized [id number] Additional Clinical Info Needed Auto-Generat ed Referral 03/22/2023 1 1 [facility] for referral (narrative)* Diagnostic Procedure Only (Routine) - Additional Clinical Info Needed Specialty Diagnoses / [facility]erred To Contact MOLECULAR & FUNCTIONAL IMAGING Diagnoses Malignant neoplasm of unspecified part of unspecified bronchus or lung (HCC) Procedures NM PET/CT SKULL-THIGH SUBSEQUENT PET IMAGING CT ATTENUATION SKULL BASE MID-THIGH Abdi Israel MD [address] [place] [address] [place] [address] [facility] [address] [place] [address] Referral ID Status Reason Start Date Expiration Date Visits Requested Visits Authorized [id number] Additional Clinical Info Needed Auto-Generat ed Referral 08/17/2023 09/15/2024 1 1 [facility] for referral (narrative)* Outpatient Procedure (Routine) - Closed Specialty Diagnoses / Procedures [facility] To [facility] Diagnoses Non-small cell cancer of left lung (HCC) Lymphadenopathy Procedures ECG COMPLETE ECG ROUTINE ECG W/LEAST 12 LDS W/I&R Teo Craft MD [address] [place] [address] [place] [address] Referral ID Status Reason Start Date Expiration Date V isits Requested Visits Authorized [id number] Closed Auto-Generate d Referral 11/05/2023 10/26/2024 1 1 * Consult, Test, Treat (Routine) - Authorized Specialty Diagnoses / Procedures 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 Referred To Contact MOLECULAR & FUNCTIONAL IMAGING Diagnoses Malignant neoplasm of unspecified part of unspecified bronchus or lung (HCC) Procedures NM PET/CT SKULL-THIGH SUBSEQUENT PET IMAGING CT ATTENUATION SKULL BASE MID-THIGH Abdi Israel MD [address] [place] [address] [place] [address] Molecular & Functional Imaging [address] [place] [address] Referral ID Status Reason Start Date Expiration Date V isits Requested Visits Authorized [id number] Closed Auto-Generate d Referral 08/21/2023 10/20/2023 1 1 [facility] for referral (narrative)* Diagnostic Procedure Only (Routine) - Closed Specialty Diagnoses / Procedures Referred By [facility] Referred To Contact MOLECULAR & FUNCTIONAL IMAGING Diagnoses Neoplasm of lung Procedures NM PET/CT SKULL-THIGH INITIAL PET IMAGING CT ATTENUATION SKULL BASE MID-THIGH Abdi Israel MD [address] [place] [address] [place] [address] Molecular & Functional Imaging [address] [place] [address] Referral ID Status Reason Start Date Expiration Date V isits Requested Visits Authorized [id number] Closed Auto-Generate d Referral 02/22/2022 04/23/2022 1 1 [facility] for referral (narrative)* Diagnostic Procedure Only (Routine) - Closed Specialty Diagnoses / Procedures [facility] Referred To Contact CT IMAGING Diagnoses Neoplasm of lung Procedures CT CHEST W IVCON CAT SCAN OF CHEST CONTRAST Abdi Israel MD [address] [place] [place] [address] [place] [address] Referral ID Status Reason Start Date Expiration Date V isits Requested Visits Authorized [id number] Closed Auto-Generate d Referral 05/16/2021 07/15/2021 1 1 [facility] Summary Purpose Family History No Family History Records Found Relationship Condition Age at Onset Recorded Date/T alvarez brother Coronary artery disease Unknown Heart disease Unknown father Coronary artery disease Unknown sister Coronary artery disease Unknown Advance Directives No Advanced Directives Records FoundDocuments on File Type Date Recorded Patient Assessment Analyst Expl anation Advance Directive(s) Advance Directive(s) 03/19/2018 [...] TOMOGRAPHY THORAX W/CONTRAST Abdi Israel MD [address] [place] [address] Ct Imaging Referral ID Status Reason Start Date Expiration Date Visits Requested Visits Authorized [id number] Pending Review Auto-Generat ed Referral 06/06/2022 07/06/2022 1 1 Specialty Diagnoses / Procedures Referred By Contac t Referred To Contact CT IMAGING Diagnoses Lung mass Procedures CT CHEST WO IVCON DIAGNOSTIC COMPUTED TOMOGRAPHY THORAX W/O CNTRSVitor Tamayo MD [address] [place] [address] Ct Imaging Referral ID Status Reason Start Date Expiration Date Visits Requested Visits Authorized [id number] Pending Review Auto-Generat ed Referral 04/22/2022 05/22/2023 1 1 Specialty Diagnoses / Procedures Referred By Contac t Referred To Contact [facility] Diagnoses Lung mass Procedures ECG COMPLETE ECG ROUTINE ECG W/LEAST 12 LDS W/I&R Vitor Kaur MD [address] [place] [address] [facility] [address] [place] [address] Referral ID Status Reason Start Date Expiration Date Visits Requested Visits Authorized [id number] Pending Review Auto-Generat ed Referral 04/22/2022 04/22/2023 1 1 Specialty Diagnoses / Procedures Referred By Contac t Referred To Contact Infectious Diseases Diagnoses Aspergillus pneumonia (HCC) Non-small cell cancer of left lung (HCC) Procedures CONSULT TO INFECTIOUS DISEASES Abdi Israel MD [address] [place] [address] [place] [address] Referral ID Status Reason Start Date Expiration Date Visits Requested Visits Authorized [id number] Ref Not Required PCP Requested Referral 05/14/2022 05/14/2023 1 1 Specialty Diagnoses / Procedures Referred By Contac t Referred To Contact CT IMAGING Diagnoses Neoplasm of lung Procedures CT CHEST W IVCON DIAGNOSTIC COMPUTED TOMOGRAPHY THORAX W/CONTRAST Abdi Israel MD [address] [place] [address] [place] [address] Ct Imaging [facility] Referral ID Status Reason Start Date Expiration Date Visits Requested Visits Authorized [id number] Pending Review Auto-Generat ed Referral 05/13/2023 12/27/2023 1 1 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) Procedures CONSULT TO ENT OFFICE/OUTPATIENT [facility] MDM 60 MINUTES Abdi Israel MD [address] [place] [address] [place] [address] Referral ID Status Reason Start Date Expiration Date Visits Requested Visits Authorized [id number] Authorized PCP Requested Referral 09/24/2023 09/22/2024 1 1 Specialty Diagnoses / Procedures Referred By Contac t Referred To Contact CT IMAGING Diagnoses Malignant neoplasm of unspecified part of unspecified bronchus or lung (HCC) Procedures CT CHEST W IVCON DIAGNOSTIC COMPUTED TOMOGRAPHY THORAX W/CONTRAST Abdi Israel MD [address] [place] [place] [address] Ct Imaging [place] [address] Referral ID Status Reason Start Date Expiration Date Visits Requested Visits Authorized [id number] Authorized Auto-Generat ed Referral 12/02/2023 01/31/2024 1 1 Specialty Diagnoses / Procedures Referred By Contac t Referred To Contact MOLECULAR & FUNCTIONAL IMAGING Diagnoses Malignant neoplasm of unspecified part of unspecified bronchus or lung (HCC) Procedures NM PET/CT SKULL-THIGH SUBSEQUENT PET IMAGING CT ATTENUATION SKULL BASE MID-THIGH Abdi Israel MD [address] [place] [place] [address] Molecular & Functional Imaging [address] [place] [address] Referral ID Status Reason Start Date Expiration Date V isits Requested Visits Authorized [id number] Denied Auto-Generate d Referral 12/02/2023 01/31/2024 1 0 Specialty Diagnoses / Procedures Referred By Contac t Referred To Contact CT IMAGING Diagnoses Lung mass Procedures CT CHEST WO IVCON DIAGNOSTIC COMPUTED TOMOGRAPHY THORAX W/O CNTRST Vitor Kaur MD [address] [place] [address] Ct Imaging [place] [address] Referral ID Status Reason Start Date Expiration Date V isits Requested Visits Authorized [id number] Closed Auto-Generate d Referral 04/22/2022 06/23/2022 1 1 Referral ID Status Reason Start Date Expiration Date V isits Requested Visits Authorized [id number] Closed Auto-Generate d Referral 12/02/2023 01/31/2024 1 [...] section and content) DATE CREATED AUTHOR 10/06/2017 [facility] DATE CREATED AUTHOR AUTHOR'S ORGANIZ ATION 10/09/2017 [facility] DATE CREATED AUTHOR AUTHOR'S ORGANIZ ATION 03/22/2018 [facility] DATE CREATED AUTHOR AUTHOR'S ORGANIZ ATION 03/26/2021 [facility] DATE CREATED AUTHOR AUTHOR'S ORGANIZ ATION 09/19/2022 [facility] DATE CREATED AUTHOR AUTHOR'S ORGANIZ ATION 09/14/2023 [facility] DATE CREATED AUTHOR AUTHOR'S ORGANIZ ATION 11/19/2023 [facility] DATE CREATED AUTHOR AUTHOR'S ORGANIZ ATION 02/19/2024 [facility] DATE CREATED AUTHOR AUTHOR'S ORGANIZ ATION 03/03/2024 [facility] DATE CREATED AUTHOR AUTHOR'S ORGANIZ ATION 03/12/2024 [facility] Source Comments (unrecognize d section and content) In the event this informatio n is protected by the Federal Confidentiality of Alcohol and Drug Abuse Patient Records regulations: The Federal rules restrict any use of the information to criminally investigate or prosecute any alcohol or drug abuse patient.[facility] the event this information is protected by the Federal Confidentiality of Alcohol and Drug Abuse Patient Records regulations: The Federal rules restrict any use of the information to criminally investigate or prosecute any alcohol or drug abuse patient.[facility] the event this information is protected by the Federal Confidentiality of Alcohol and Drug Abuse Patient Records regulations: The Federal rules restrict any use of the information to criminally investigate or prosecute any alcohol or drug abuse patient.[facility] the event this information is protected by the Federal Confidentiality of Alcohol and Drug Abuse Patient Records regulations: The Federal rules restrict any use of the information to criminally investigate or prosecute any alcohol or drug abuse patient.[facility] the event this information is protected by the Federal Confidentiality of Alcohol and Drug Abuse Patient Records regulations: The Federal rules restrict any use of the information to criminally investigate or prosecute any alcohol or drug abuse patient.[facility] the event this information is protected by the Federal Confidentiality of Alcohol and Drug Abuse Patient Records regulations: The Federal rules restrict any use of the information to criminally investigate or prosecute any alcohol or drug abuse patient.[facility] the event this information is protected by the Federal Confidentiality of Alcohol and Drug Abuse Patient Records regulations: The Federal rules restrict any use of the information to criminally investigate or prosecute any alcohol or drug abuse patient.[facility] the event this information is protected by the Federal Confidentiality of Alcohol and Drug Abuse Patient Records regulations: The Federal rules restrict any use of the information to criminally investigate or prosecute any alcohol or drug abuse patient.[facility] the event this information is protected by the Federal Confidentiality of Alcohol and Drug Abuse Patient Records regulations: The Federal rules restrict any use of the information to criminally investigate or prosecute any alcohol or drug abuse patient.[facility] the event this information is protected by the Federal Confidentiality of Alcohol and Drug Abuse Patient Records regulations: The Federal rules restrict any use of the information to criminally investigate or prosecute any alcohol or drug abuse patient.[facility] the event this information is protected by the Federal Confidentiality of Alcohol and Drug Abuse Patient Records regulations: The Federal rules restrict any use of the information to criminally investigate or prosecute any alcohol or drug abuse patient.[facility] the event this information is protected by the Federal Confidentiality of Alcohol and Drug Abuse Patient Records regulations: The Federal rules restrict any use of the information to criminally investigate or prosecute any alcohol or drug abuse patient.[facility] the event this information is protected by the Federal Confidentiality of Alcohol and Drug Abuse Patient Records regulations: The Federal rules restrict any use of the information to criminally investigate or prosecute any alcohol or drug abuse patient.[facility] the event this information is protected by the Federal Confidentiality of Alcohol and Drug Abuse Patient Records regulations: The Federal rules restrict any use of the information to criminally investigate or prosecute any alcohol or drug abuse patient.[facility] the event this information is protected by the Federal Confidentiality of Alcohol and Drug Abuse Patient Records regulations: The Federal rules restrict any use of the information to criminally investigate or prosecute any alcohol or drug abuse patient.[facility] the event this information is protected by the Federal Confidentiality of Alcohol and Drug Abuse Patient Records regulations: The Federal rules restrict any use of the information to criminally investigate or prosecute any alcohol or drug abuse patient.[facility] the event this information is protected by the Federal Confidentiality of Alcohol and Drug Abuse Patient Records regulations: The Federal rules restrict any use of the information to criminally investigate or prosecute any alcohol or drug abuse patient.[facility] the event this information is protected by the Federal Confidentiality of Alcohol and Drug Abuse Patient Records regulations: The Federal rules restrict any use of the information to criminally investigate or prosecute any alcohol or drug abuse patient.[facility] the event this information is protected by the Federal Confidentiality of Alcohol and Drug Abuse Patient Records regulations: The Federal rules restrict any use of the information to criminally investigate or prosecute any alcohol or drug abuse patient.[facility] HospitalIn the event this information is protected by the Federal Confidentiality of Alcohol and Drug Abuse Patient Records regulations: The Federal rules restrict any use of the information to criminally investigate or prosecute any alcohol or drug abuse patient.[facility] the event this information is protected by the Federal Confidentiality of Alcohol and Drug Abuse Patient Records regulations: The Federal rules restrict any use of the information to criminally investigate or prosecute any alcohol or drug abuse patient.[facility] the event this information is protected by the Federal Confidentiality of Alcohol and Drug Abuse Patient Records regulations: The Federal rules restrict any use of the information to criminally investigate or prosecute any alcohol or drug abuse patient.[facility] Hospital[facility] the event this information is protected by the Federal Confidentiality of Alcohol and Drug Abuse Patient Records regulations: The Federal rules restrict any use of the information to criminally investigate or prosecute any alcohol or drug abuse patient.[facility] the event this information is protected by the Federal Confidentiality of Alcohol and Drug Abuse Patient Records regulations: The Federal rules restrict any use of the information to criminally investigate or prosecute any alcohol or drug abuse patient.[facility] the event this information is protected by the Federal Confidentiality of Alcohol and Drug Abuse Patient Records regulations: The Federal rules restrict any use of the information to criminally investigate or prosecute any alcohol or drug abuse patient.[facility] the event this information is protected by the Federal Confidentiality of Alcohol and Drug Abuse Patient Records regulations: The Federal rules restrict any use of the information to criminally investigate or prosecute any alcohol or drug abuse patient.[facility] the event this information is protected by the Federal Confidentiality of Alcohol and Drug Abuse Patient Records regulations: The Federal rules restrict any use of the information to criminally investigate or prosecute any alcohol or drug abuse patient.[facility] the event this information is protected by the Federal Confidentiality of Alcohol and Drug Abuse Patient Records regulations: The Federal rules restrict any use of the information to criminally investigate or prosecute any alcohol or drug abuse patient.[facility] the event this information is protected by the Federal Confidentiality of Alcohol and Drug Abuse Patient Records regulations: The Federal rules restrict any use of the information to criminally investigate or prosecute any alcohol or drug abuse patient.[facility] the event this information is protected by the Federal Confidentiality of Alcohol and Drug Abuse Patient Records regulations: The Federal rules restrict any use of the information to criminally investigate or prosecute any alcohol or drug abuse patient.[facility]In the event this information is protected by the Federal Confidentiality of Alcohol and Drug Abuse Patient Records regulations: The Federal rules restrict any use of the information to criminally investigate or prosecute any alcohol or drug abuse patient.[facility] the event this information is protected by the Federal Confidentiality of Alcohol and Drug Abuse Patient Records regulations: The Federal rules restrict any use of the information to criminally investigate or prosecute any alcohol or drug abuse patient.[facility] the event this information is protected by the Federal Confidentiality of Alcohol and Drug Abuse Patient Records regulations: The Federal rules restrict any use of the information to criminally investigate or prosecute any alcohol or drug abuse patient.[facility]In the event this information is protected by the Federal Confidentiality of Alcohol and Drug Abuse Patient Records regulations: The Federal rules restrict any use of the information to criminally investigate or prosecute any alcohol or drug abuse patient.[facility] Reason for Visit (unrecogniz ed section and content) Reason Comments Lung Cancer Reason Comments Orders Reason Comments Orders Reason Comments Lung Cancer Reason Comments Appointment PreOp Bronch Reason Comments Patient Update Appointment Reason Comments Lung Cancer Lung Mass Reason Comments Appointment Specialty Diagnoses / Procedures Referred By Dwayne rosa Referred To Contact ADMITTING Diagnoses Bronchiolar disease Procedures [facility] INCL FLUOR GDNCE DX W/CELL WASHG SPX BRONCHOSCOPY [facility] [address] [address] Referral ID Status Reason Start Date Expiration Date Visits Re quested Visits Authorized [id number] 1 1 Reason Comments Appointment Reason Comments [...] [facility] [address] [place] [address] Referral ID Status Reason Start Date Expiration Date Visits Re quested Visits Authorized [id number] 1 1 Reason Comments Appointment Confirmation Reason Comments Anesthesia Consult Reason Comments Patient Update Reason Comments New Patient Would like to discus s lymph node removal. 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) Procedures CONSULT TO ENT OFFICE/OUTPATIENT [facility] MDM 60 MINUTES Abdi Israel MD [address] [place] [address] [place] [address] Referral ID Status Reason Start Date Expiration Date V isits Requested Visits Authorized [id number] Closed PCP Requested Referral 09/24/2023 09/22/2024 1 1 Reason Comments Results Reason Comments Radiology NM Specialty Diagnoses / Procedures Referred By Contac t Referred To Contact MOLECULAR & FUNCTIONAL IMAGING Diagnoses Malignant neoplasm of unspecified part of unspecified bronchus or lung (HCC) Procedures NM PET/CT SKULL-THIGH SUBSEQUENT PET IMAGING CT ATTENUATION SKULL BASE MID-THIGH Abdi Israel MD [address] [place] [address] [place] [address] Molecular & Functional Imaging [address] [place] [address] Referral ID Status Reason Start Date Expiration Date V isits Requested Visits Authorized [id number] Closed Auto-Generate d Referral 08/21/2023 10/20/2023 1 1 Reason Comments Appointment Confirmation Reason Comments Radiology CT Specialty Diagnoses / Procedures Referred By Contac t Referred To Contact CT IMAGING Diagnoses Lung mass Procedures CT CHEST WO IVCON DIAGNOSTIC COMPUTED TOMOGRAPHY THORAX W/O Vitor Molina MD [address] [place] [id number] Imaging [place] [address] Referral ID Status Reason Start Date Expiration Date V isits Requested Visits Authorized [id number] Closed Auto-Generate d Referral 04/22/2022 06/23/2022 1 1 Specialty Diagnoses / Procedures Referred By Contac t Referred To Contact MOLECULAR & FUNCTIONAL IMAGING Diagnoses Neoplasm of lung Procedures NM PET/CT SKULL-THIGH INITIAL PET IMAGING CT ATTENUATION SKULL BASE MID-THIGH Abdi Israel MD [address] [place] [address] [place] [address] Molecular & Functional Imaging [address] [place] [address] Referral ID Status Reason Start Date Expiration Date V isits Requested Visits Authorized [id number] Closed Auto-Generate d Referral 02/22/2022 04/23/2022 1 1 Specialty Diagnoses / Procedures Referred By Contac t Referred To Contact CT IMAGING Diagnoses Neoplasm of lung Procedures CT CHEST W IVCON CAT SCAN OF CHEST CONTRAST Abdi Israel MD [address] [place] [place] [address] [place] [address] Referral ID Status Reason Start Date Expiration Date V isits Requested Visits Authorized [id number] Closed Auto-Generate d Referral 05/16/2021 07/15/2021 1 1 Specialty Diagnoses / Procedures Referred By Contac t Referred To Contact CT IMAGING Diagnoses Malignant neoplasm of unspecified part of unspecified bronchus or lung (HCC) Procedures CT CHEST W IVCON DIAGNOSTIC COMPUTED TOMOGRAPHY THORAX W/CONTRAST Abdi Israel MD [address] [place] [place] [address] [place] [address] Referral ID Status Reason Start Date Expiration Date V isits Requested Visits Authorized [id number] Closed Auto-Generate d Referral 12/02/2023 01/31/2024 1 [...] September 29, 2023 End: September 29, 2023 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 Relationship Specialty Start Date End Date Adithya Kenyon MD [address] [place] [address] PCP - General Family Practice 02/25/18 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 Relationship Specialty Start Date End Date Adithya Kenyon MD [address] [place] [address] PCP - General Family Medicine 02/25/18 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 Relationship Specialty Start Date End Date Adithya Kenyon MD [address] [place] [place] [address] PCP - General Family Medicine 02/25/18 [employer]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 Relationship Specialty Start Date End Date Adithya Kenyon MD [address] [place] [place] [address] PCP - General Family Medicine 02/25/18 [employer]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 Relationship Specialty Start Date End Date Adithya Kenyon MD [address] [place] [place] [address] PCP - General Family Medicine 02/25/18 [employer]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 Relationship Specialty Start Date End Date Adithya Kenyon MD [address] [place] [place] [address] PCP - General Family Medicine 02/25/18 [employer]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 Relationship Specialty Start Date End Date Adithya Kenyon MD [address] [place] [place] [address] PCP - General Family Medicine 02/25/18 [employer]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 Relationship Specialty Start Date End Date Adithya Kenyon MD [address] [place] [place] [address] PCP - General Family Medicine 02/25/18 [employer]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 Relationship Specialty Start Date End Date Adithya Kenyon MD [address] [place] [place] [address] PCP - General Family Medicine 02/25/18 [employer]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 Relationship Specialty Start Date End Date Adithya Kenyon MD PCP - General Family Medicine 02/25/18 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 Relationship Specialty Start Date End Date Adithya [...] May 14, 2023 End: May 17, 2023 [employer]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 Relationship Specialty Start Date End Date Adithya Kenyon MD PCP - General Family Medicine 02/25/18 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 Relationship Specialty Start Date End Date Adithya Kenyon MD PCP - General Family Medicine 02/25/18 [employer]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 Relationship Specialty Start Date End Date Adithya Kenyon MD PCP - General Family Medicine 02/25/18 [employer]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 Relationship Specialty Start Date End Date Adithya Kenyon MD PCP - General Family Medicine 02/25/18 [employer]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 Relationship Specialty Start Date End Date Adithya Kenyon MD PCP - General Family Medicine 02/25/18 [employer]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 Relationship Specialty Start Date End Date Adithya Kenyon MD PCP - General Family Medicine 02/25/18 [employer]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 Relationship Specialty Start Date End Date Adithya Kenyon MD PCP - [facility] 02/25/18 Team Status: Inactive Member Role Status Dates Adithya Kenyon MD Primary Care Provider Active Start: December 03, 2023 End: December 03, 2023 Denver Rasmussen MD Attending Provider Active Start: December 03, 2023 End: December 03, 2023 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 Relationship Specialty Start Date End Date Adithya Kenyon MD PCP - [facility] 02/25/18 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 Relationship Specialty Start Date End Date Adithya Kenyon MD PCP - [facility] 02/25/18 Team Status: Active Member Role Status Dates Adithya Kenyon MD Primary Care Provider Active Start: December 20, 2023 Rip Celestin DO Emergency Provider Active St art: December 20, 2023 Mg Vaughn MD Admit Provider, Attending Provider Active Start: December 20, 2023 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 Relationship Specialty Start Date End Date Adithya Kenyon MD PCP - [facility] 02/25/18 Team Status: Inactive Member Role [...] December 21, 2023 Denver Rasmussen MD Attending Sd peri, Other Provider Active Start: December 21, 2023 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 Relationship Specialty Start Date End Date Adithya Kenyon MD PCP - General Family Medicine 02/25/18 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 Relationship Specialty Start Date End Date Adithya Kenyon MD PCP - General Family Medicine 02/25/18 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 Relationship Specialty Start Date End Date Adithya Kenyon MD PCP - General Family Medicine 02/25/18 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 Relationship Specialty Start Date End Date Adithya Kenyon MD PCP - General Family Medicine 02/25/18 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 Relationship Specialty Start Date End Date Adithya Kenyon MD PCP - General Family Medicine 02/25/18 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 Relationship Specialty Start Date End Date Adithya [...] February 26, 2024 End: February 26, 2024 [employer]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 [email or web address] provides no warranty or guarantee of the accuracy or completeness of information in this document.
[2024-04-04 06:26] LABS: Basophils Percent Auto 0.1 % (0.2-2.0); Eosinophils Percent Auto 0.1 % (0.9-7.0); Hemoglobin 12.5 g/dL (12.0-16.0); Immature Granulocytes Abs Auto 0.06 10^3/uL (0.00-0.03); Immature Granulocytes Pct Auto 0.3 % (0.0-0.5); Lymphocytes Absolute Auto 0.3 10^3/uL (1.2-3.8); Lymphocytes Percent Auto 1.5 % (20.5-60.0); Mean Corpuscular HGB Conc 31.3 g/dL (29.9-35.2); Mean Corpuscular Hemoglobin 27.8 pg (26.7-34.0); Mean Corpuscular Volume 89.1 fL (81.0-99.0); Mean Platelet Volume 9.4 fL (9.5-13.5); Monocytes Absolute Auto 0.7 10^3/uL (0.3-0.8); Monocytes Percent Auto 4.1 % (1.7-12.0); Neutrophils Absolute Auto 16.2 10^3/uL (1.4-6.5); Neutrophils Percent Auto 93.9 % (43.0-75.0); Platelet Count 197 10^3/uL (150-450); Red Blood Count 4.49 10^6/uL (4.20-5.40); Red Cell Distribution Width 12.8 % (11.0-15.0); White Blood Count 17.2 10^3/uL (4.0-11.0)
[2024-04-04 06:50] LABS: Alanine Aminotransferase 25 U/L (14-59); Albumin Globulin Ratio 0.8; Alkaline Phosphatase 73 U/L (46-116); Anion Gap 10.1; Aspartate Amino Transferase 26 U/L (15-37); BUN Creatinine Ratio 19.6; Bilirubin Total 0.5 mg/dL (0.2-1.0); Carbon Dioxide 33.5 mmol/L (21.0-32.0); Chloride 97 mmol/L (98-107); Estimated GFR (African America >60 (>=60 mL/min/1.73m^2); Estimated GFR (Non-African Ame >60 (>=60 mL/min/1.73m^2); Globulin 3.6 g/dL; Glucose 115 mg/dL (74-106); Magnesium 1.7 mg/dL (1.8-2.4); Potassium 3.6 mmol/L (3.5-5.1); Sodium 137 mmol/L (136-145); Total Protein 6.6 g/dL (6.4-8.2)
--- NOTE | 2024-04-04 08:36 | P.HP_ITS ---
HPI H&P: HPI History of Present Illness Chief complaint: RLL PNEUMONIA Narrative: Patient was evaluated in the office earlier last week, placed on Augmentin, no significant improvement. Presented emergency room and found to have right lower lobe pneumonia with acute hypoxia, 85% on 2 L last night When I saw patient on the medical surgical floor she was coughing throughout the evaluation mild conversational dyspnea Opioid HPI Opioid Management Most Recent Pain and Opioid Data: Last Pain Scale 4 04/04/24 09:28 04/04/24 Last Pain Assessment 04/04/24 12:09 Last MAR Pain Assessment 04/04/24 03:46 Last ORT Total Score 0 04/04/24 04:36 04/04/24 Last ORT Risk Category Low Risk 04/04/24 04:36 04/04/24 Review of Systems ROS Status of ROS 10 or more systems reviewed and unremark able except as noted in history and below [facility] Medical History (Updated 04/04/24 @ 03:17 by Brayan Chavez MD) COPD exacerbation ?J44.1 - Chronic obstructive pulmonary disease with (acute) exacerbation (ICD-10) Acute exacerbation of chronic obstructive pulmonary disease (COPD) ?J44.1 - Chronic obstructive pulmonary disease with (acute) exacerbation (ICD-10) Tachycardia ?R00.0 - Tachycardia, unspecified (ICD-10) Failure of outpatient treatment ?Z78.9 - Other specified health status (ICD-10) Tachypnea ?R06.82 - Tachypnea, not elsewhere classified (ICD-10) Asthma exacerbation in COPD ?J44.1 - Chronic obstructive pulmonary disease with (acute) exacerbation (ICD-10) ?J45.901 - Unspecified asthma with (acute) exacerbation (ICD-10) Community acquired pneumonia ?J18.9 - Pneumonia, unspecified organism (ICD-10) Acute infective exacerbation of chronic obstructive airway disease ?J44.1 - Chronic obstructive pulmonary disease with (acute) exacerbation (ICD-10) Acute bronchitis ?J20.9 - Acute bronchitis, unspecified (ICD-10) Acute and chronic respiratory failure with hypoxia ?J96.21 - Acute and chronic respiratory failure with hypoxia (ICD-10) Iron deficiency anemia ?D50.9 - Iron deficiency anemia, unspecified (ICD-10) Sinus tachycardia ?R00.0 - Tachycardia, unspecified (ICD-10) Acute exacerbation of chronic obstructive pulmonary disease ?J44.1 - Chronic obstructive pulmonary disease with (acute) exacerbation (ICD-10) Chronic obstructive pulmonary disease ?J44.9 - Chronic obstructive pulmonary disease, unspecified (ICD-10) Surgical History (Updated 12/13/23 @ 08:54 by Neha Ball) Hx of appendectomy ?Z90.49 - Acquired absence of other specified parts of digestive tract (ICD- 10) Family History (Updated 09/22/22 @ 21:17 by Veronika Almeida) Other Family history of myocardial infarction Social History Within the past year, how often did you have a drink containing alcohol: never Score interpretation: A score less than 3 is consistent with normal alcohol consumption. Smoking status: Former smoker Non-prescribed substance use: denies use Previous occupational history: disabled Highest level of school completed/degree received: GED or equivalent Are you now , , , , never or living with a partner: In a typical week, how many times do you talk on the telephone with family, friends, or neighbors: 3 or more times per week How often do you get together with friends or relatives: 3 or more times per week How often do you attend islam or scientology services: 1-3 times per year Do you belong to any clubs or organizations such as islam groups unions, fra[employer]igence or athletic groups, or school groups: no Total score: 2 Score interpretation: A score of greater than or equal to 2 indicates the lowest level of social isolation. Little interest or pleasure in doing things: not at all Feeling down, depressed, or hopeless: not at all Feel stressed/tense/nervous/anxious/difficulty sleeping: not at all Do you think of yourself as: straight/heterosexual Gender Identity: female Meds Home Medications and Allergies Home Medications ?Medication ?Instructions ?Recorded ?Confirmed ?Type budesonide 0.5 mg/2 mL suspension 0.5 mg inhalation Q12H shortness 09/22/22 04/04/24 History for nebulization of breath or wheezing ipratropium 0.5 mg-albuterol 3 mg 3 ml inhalation Q6H 09/22/22 04/04/24 History (2.5 mg base)/3 mL nebulization soln montelukast 10 mg tablet 10 mg PO .hs 09/22/22 04/04/24 History albuterol sulfate 90 mcg/actuation 2 inh inhalation QID PRN SOB 02/07/23 04/04/24 History aerosol inhaler (ProAir HFA) theophylline 400 mg 400 mg PO DAILY 02/07/23 04/04/24 History tablet,extended release 24 hr ferrous sulfate 325 mg (65 mg 325 mg PO BID #60 tabs 05/09/23 04/04/24 Rx iron) tablet cetirizine 10 mg tablet 10 mg PO DAILY 12/13/23 04/04/24 History Allergies Allergy/AdvReac Type Severity Reaction Status Date / Time No Known Drug Allergies Allergy Verified 04/04/24 01:41 Exam Constitutional Vital Signs, click to edit/add: Last Vital Signs Temp 98 F 04/04/24 04:27 Pulse 121 H 04/04/24 07:50 Resp 20 04/04/24 04:37 BP 99/53 04/04/24 04:27 Pulse Ox 85 L 04/04/24 04:27 O2 Del Method Nasal Cannula 04/04/24 04:27 O2 Flow Rate 2 04/04/24 04:27 Documenting provider has reviewed patient's vital signs: yes Common normals: no apparent distress Respiratory Common normals: no retractions; abnormal respiratory effort and not clear to ascultation bilaterally Auscultation: rhonchi, wheezes and diminished lung sounds Cardio Common normals: regular rhythm; irregular rate Rate: tachycardic GI Common normals: Normal to inspection, nondistended, normoactive bowel sounds present Results Labs Labs: Short CBC 04/04/24 04/04/24 Range/Units 02:00 06:09 WBC 13.5 H 17.2 H (4.0-11.0) 10^3/uL Hgb 13.4 12.5 (12.0-16.0) g/dL Hct 41.7 40.0 (36.0-48.0) % Plt Count 193 197 (150-450) 10^3/uL BMP 04/04/24 04/04/24 02:00 06:09 Sodium 137 137 Potassium 3.9 3.6 Chloride 96 L 97 L Carbon Dioxide 33.9 H 33.5 H BUN 11.0 10.0 Creatinine 0.64 0.51 L Glucose 110 H 115 H Calcium 9.5 9.0 Liver Function 04/04/24 Range/Units 06:09 Total Bilirubin 0.5 (0.2-1.0) mg/dL AST 26 (15-37) U/L ALT 25 (14-59) U/L Alkaline Phosphatase 73 (46-116) U/L Albumin 3.0 L (3.4-5.0) g/dL Assessment and Plan Assessment and Plan (1) Pneumonia: (2) Sinus tachycardia: (3) COPD exacerbation: (4) Community acquired pneumonia: Plan Admission findings: Sinus tachycardia, respiratory distress, leukocytosis with left shift consistent with bacterial process, x-ray consistent with right lower lobe pneumonia. Acute exacerbation of COPD Acute exacerbation of COPD with acute exacerbation chronic hypoxic respiratory failure requirinmg supplemental oxygen at 2 L , secondary to acute right lower lobe pneumonia with failed outpatient treatment of oral antibiotics. Change patient to Zosyn and Levaquin. Continue with steroids, restart theophylline, change aerosol treatments to levo albuterol secondary to tachycardia Acute hypoxic respiratory failure secondary to acute exacerbation of COPD secondary to right lower lobe pneumonia-O2 saturation of 85% on 2 L, continue to adjust medications, trying to avoid increasing her FiO2 Sinus tachycardia likely related to the above-change to Xopenex, Hypomagnesemia - supplement Admission status: Patient with acute hypoxic respiratory failure secondary right lower lobe pneumonia and severe COPD history-medically necessary treatment will span 2 midnights. Inpatient status.
[2024-04-04] MEDS: 0.9 % SODIUM CHLORIDE 250 ML 10 ML IV (09:29)
[2024-04-04] MEDS: MAGNESIUM OXIDE 400 MG TABLET PO ×2 (09:30→21:14)
[2024-04-04] MEDS: ENOXAPARIN SODIUM 40 MG/0.4 ML SYRINGE SUBQ (09:30)
[2024-04-04] MEDS: CETIRIZINE HCL 10 MG TABLET PO (09:30)
[2024-04-04] MEDS: THEOPHYLLINE 300 MG TAB.ER.12H PO (09:30)
[2024-04-04] MEDS: FERROUS SULFATE 325 MG TABLET PO ×2 (09:30→21:14)
[2024-04-04] MEDS: LEVOFLOXACIN IN DEXTROSE 5 % 750 MG/150 ML PREMIX 100 MG IV (09:31)
[2024-04-04] MEDS: SODIUM CHLORIDE 0.9% INHALATION 3 ML NEB IH ×2 (11:14→17:33)
[2024-04-04] MEDS: LEVALBUTEROL HCL 0.63 MG/3 ML VIAL.NEB IH ×2 (11:14→17:33)
[2024-04-04] MEDS: IPRATROPIUM BROMIDE 0.5 MG/2.5 ML VIAL.NEB IH ×2 (11:14→17:33)
[2024-04-04] MEDS: PIPERACILLIN SODIUM/TAZOBACTAM 3.375 GM in 0.9 % SODIUM CHLORIDE 50 ML IV ×2 (11:16→21:13)
--- NOTE | 2024-04-04 12:45 | SWNOTE1 ---
Pt does wear home oxygen, 2 liters continuous.
[2024-04-04] MEDS: METHYLPREDNISOLONE SOD SUCC PF 125 MG/2 ML VIAL 60 MG IVP ×2 (15:29→21:14)
[2024-04-04] MEDS: MONTELUKAST SODIUM 10 MG TABLET PO (21:15)
[2024-04-05] VITALS (13 sets, daily range): BP systolic 103–117; BP diastolic 57–72; PULSE 92–120; TEMP 36.4–36.8; O2SAT 90–95
[2024-04-05] MEDS: BUDESONIDE 0.5 MG/2 ML AMPULE NEB IH ×2 (00:21→11:17)
[2024-04-05] MEDS: IPRATROPIUM BROMIDE 0.5 MG/2.5 ML VIAL.NEB IH ×4 (00:21→16:19)
[2024-04-05] MEDS: LEVALBUTEROL HCL 0.63 MG/3 ML VIAL.NEB IH ×4 (00:21→16:19)
[2024-04-05] MEDS: METHYLPREDNISOLONE SOD SUCC PF 125 MG/2 ML VIAL 60 MG IVP ×4 (03:51→21:21)
[2024-04-05] MEDS: PIPERACILLIN SODIUM/TAZOBACTAM 3.375 GM in 0.9 % SODIUM CHLORIDE 50 ML IV ×3 (03:51→19:48)
[2024-04-05] MEDS: SODIUM CHLORIDE 0.9% INHALATION 3 ML NEB IH ×2 (05:41→16:19)
[2024-04-05 06:26] LABS: Basophils Percent Auto 0.2 % (0.2-2.0); Hemoglobin 12.4 g/dL (12.0-16.0); Immature Granulocytes Abs Auto 0.31 10^3/uL (0.00-0.03); Immature Granulocytes Pct Auto 1.4 % (0.0-0.5); Lymphocytes Absolute Auto 0.5 10^3/uL (1.2-3.8); Lymphocytes Percent Auto 2.3 % (20.5-60.0); Mean Corpuscular HGB Conc 31.8 g/dL (29.9-35.2); Mean Corpuscular Hemoglobin 28.2 pg (26.7-34.0); Mean Corpuscular Volume 88.6 fL (81.0-99.0); Mean Platelet Volume 9.8 fL (9.5-13.5); Monocytes Absolute Auto 0.9 10^3/uL (0.3-0.8); Monocytes Percent Auto 3.7 % (1.7-12.0); Neutrophils Absolute Auto 21.2 10^3/uL (1.4-6.5); Neutrophils Percent Auto 92.4 % (43.0-75.0); Platelet Count 194 10^3/uL (150-450); Red Cell Distribution Width 12.8 % (11.0-15.0); White Blood Count 22.9 10^3/uL (4.0-11.0)
[2024-04-05 06:36] LABS: BUN Creatinine Ratio 20.8; Carbon Dioxide 38.6 mmol/L (21.0-32.0); Chloride 101 mmol/L (98-107); Estimated GFR (African America >60 (>=60 mL/min/1.73m^2); Estimated GFR (Non-African Ame >60 (>=60 mL/min/1.73m^2); Glucose 124 mg/dL (74-106); Potassium 3.6 mmol/L (3.5-5.1); Sodium 142 mmol/L (136-145)
--- NOTE | 2024-04-05 08:16 | P.PN_ITS ---
Progress Note: Subjective Subjective Interval history: Patient still with significant cough, some dyspnea but is somewhat improved from previous day. Has not really been up and ambulating yet to really assess the dyspnea Exam Constitutional Vital Signs, click to edit/add: Last Vital Signs Temp 97.5 F L 04/05/24 07:37 Pulse 103 H 04/05/24 07:52 Resp 22 H 04/05/24 07:37 BP 115/66 04/05/24 07:37 Pulse Ox 91 L 04/05/24 07:37 O2 Del Method Nasal Cannula 04/05/24 07:37 O2 Flow Rate 2 04/05/24 07:37 Documenting provider has reviewed patient's vital signs: yes Common normals: no apparent distress Respiratory Common normals: no retractions; abnormal respiratory effort (Seems improved from previous day) and not clear to ascultation bilaterally Auscultation: rhonchi, wheezes (Tight wheeze persisting) and diminished lung sounds Cardio Common normals: regular rhythm; irregular rate Rate: tachycardic GI Common normals: Normal to inspection, nondistended, normoactive bowel sounds present Progress Note: Objective Labs Labs: Short CBC 04/05/24 Range/Units 06:14 WBC 22.9 H (4.0-11.0) 10^3/uL Hgb 12.4 (12.0-16.0) g/dL Hct 39.0 (36.0-48.0) % Plt Count 194 (150-450) 10^3/uL BMP 04/05/24 06:14 Sodium 142 Potassium 3.6 Chloride 101 Carbon Dioxide 38.6 H BUN 11.0 Creatinine 0.53 L Glucose 124 H Calcium 10.0 Progress Note: A&P Assessment and Plan (1) Pneumonia: (2) Sinus tachycardia: (3) COPD exacerbation: (4) Community acquired pneumonia: (5) Tachycardia: (6) Failure of outpatient treatment: Plan Admission findings: Sinus tachycardia, respiratory distress, leukocytosis with left shift consistent with bacterial process, resulting in sepsis, x-ray consistent with right lower lobe pneumonia. Acute exacerbation of COPD Acute exacerbation of COPD with acute exacerbation chronic hypoxic respiratory failure requiring supplemental oxygen at 2 L , secondary to acute right lower lobe pneumonia with failed outpatient treatment of oral antibiotics. Change patient to Zosyn and Levaquin. Continue with steroids, restart theophylline, change aerosol treatments to levo albuterol secondary to tachycardia-continue current treatment plan overall improved but not to baseline, leukocytosis worse today, left shift consistent with bacterial process, culture pending Acute hypoxic respiratory failure secondary to acute exacerbation of COPD with chronic hypoxic respiratory failure requiring 2 L of supplemental oxygen, secondary to right lower lobe pneumonia-O2 saturation of 85% on 2 L, continue to adjust medications, trying to avoid increasing her FiO2 Sinus tachycardia likely related to the above-change to Xopenex, and is improved today Thrush-start nystatin Moderate protein calorie malnutrition-diet supplement Hypomagnesemia - supplement Admission status: Patient with sepsis and acute hypoxic respiratory failure secondary right lower lobe pneumonia and severe COPD history-medically necessary treatment will span 2 midnights. Inpatient status. ?
[2024-04-05] MEDS: NYSTATIN 500,000 UNIT/5 ML ORAL.SUSP 500000 UNIT PO ×3 (08:41→21:22)
[2024-04-05] MEDS: THEOPHYLLINE 300 MG TAB.ER.12H PO (08:42)
[2024-04-05] MEDS: CETIRIZINE HCL 10 MG TABLET PO (08:42)
[2024-04-05] MEDS: MAGNESIUM OXIDE 400 MG TABLET PO ×2 (08:42→21:21)
[2024-04-05] MEDS: ENSURE HP 237 ML LIQUID PO ×2 (08:42→21:21)
[2024-04-05] MEDS: FERROUS SULFATE 325 MG TABLET PO ×2 (08:42→21:21)
--- NOTE | 2024-04-05 10:47 | CM.NOTE ---
Discussed with pt discharge planning, pt still going to cardiac rehab as outpatient and f/u with pulmonology. Pt states she has not gone to Pulmonary rehab the last couple weeks because her grandchild was sick, pt plans on returning at discharge. Pt up ad adalgisa in room and denies any need for HH services, pt is not home bound.
--- NOTE | 2024-04-05 17:19 | PC.NURSE ---
Patient did not end up taking AM dose of nystatin swish and swallow. She had forgot to use it when she was done eating. She used that dose that was still at bedside for this evening's 1800 dose.
[2024-04-05] MEDS: MONTELUKAST SODIUM 10 MG TABLET PO (21:21)
[2024-04-06 04:00] VITALS: BP 109/65; PULSE 89; TEMP 36.8; O2SAT 93
[2024-04-06] MEDS: PIPERACILLIN SODIUM/TAZOBACTAM 3.375 GM in 0.9 % SODIUM CHLORIDE 50 ML IV ×2 (04:05→11:06)
[2024-04-06] MEDS: METHYLPREDNISOLONE SOD SUCC PF 125 MG/2 ML VIAL 60 MG IVP ×2 (04:05→08:03)
[2024-04-06 05:28] VITALS: PULSE 108; O2SAT 95
[2024-04-06] MEDS: SODIUM CHLORIDE 0.9% INHALATION 3 ML NEB IH ×2 (05:28→10:56)
[2024-04-06] MEDS: LEVALBUTEROL HCL 0.63 MG/3 ML VIAL.NEB IH ×2 (05:28→10:56)
[2024-04-06] MEDS: IPRATROPIUM BROMIDE 0.5 MG/2.5 ML VIAL.NEB IH ×2 (05:28→10:55)
[2024-04-06] MEDS: BUDESONIDE 0.5 MG/2 ML AMPULE NEB IH (05:32)
[2024-04-06] MEDS: NYSTATIN 500,000 UNIT/5 ML ORAL.SUSP 500000 UNIT PO (06:16)
[2024-04-06 06:21] LABS: Basophils Percent Auto 0.1 % (0.2-2.0); Hematocrit 40.3 % (36.0-48.0); Hemoglobin 12.5 g/dL (12.0-16.0); Immature Granulocytes Abs Auto 0.15 10^3/uL (0.00-0.03); Immature Granulocytes Pct Auto 0.9 % (0.0-0.5); Lymphocytes Absolute Auto 0.3 10^3/uL (1.2-3.8); Lymphocytes Percent Auto 1.8 % (20.5-60.0); Mean Corpuscular Volume 90.4 fL (81.0-99.0); Mean Platelet Volume 10.3 fL (9.5-13.5); Monocytes Absolute Auto 0.4 10^3/uL (0.3-0.8); Monocytes Percent Auto 2.5 % (1.7-12.0); Neutrophils Percent Auto 94.7 % (43.0-75.0); Platelet Count 203 10^3/uL (150-450); Red Blood Count 4.46 10^6/uL (4.20-5.40); White Blood Count 16.9 10^3/uL (4.0-11.0)
[2024-04-06 06:38] LABS: Anion Gap 5.6; BUN Creatinine Ratio 27.8; Calcium 9.8 mg/dL (8.5-10.1); Chloride 100 mmol/L (98-107); Estimated GFR (African America >60 (>=60 mL/min/1.73m^2); Estimated GFR (Non-African Ame >60 (>=60 mL/min/1.73m^2); Glucose 205 mg/dL (74-106); Potassium 3.6 mmol/L (3.5-5.1); Sodium 143 mmol/L (136-145)
[2024-04-06 07:32] VITALS: BP 128/75; PULSE 95; TEMP 36.4; O2SAT 91
--- NOTE | 2024-04-06 07:44 | P.DS_ITS ---
DS: Providers Provider Date of admission: 04/04/24 04:08 Primary care physician: Kaiden Bass MD DS: Diagnosis Discharge Diagnosis (1) Pneumonia: (2) Sinus tachycardia: (3) COPD exacerbation: (4) Community acquired pneumonia: (5) Tachycardia: (6) Failure of outpatient treatment: Plan Admission findings: Sinus tachycardia, respiratory distress, leukocytosis with left shift consistent with bacterial process, resulting in sepsis, x-ray consistent with right lower lobe pneumonia. Acute exacerbation of COPD Acute exacerbation of COPD with acute exacerbation chronic hypoxic respiratory failure requiring supplemental oxygen at 2 L , secondary to acute right lower lobe pneumonia with failed outpatient treatment of oral antibiotics. Change patient to Zosyn and Levaquin. Continue with steroids, restart theophylline, change aerosol treatments to levo albuterol secondary to tachycardia-continue current treatment plan overall improved but not to baseline, leukocytosis worse today, left shift consistent with bacterial process, culture pending Acute hypoxic respiratory failure secondary to acute exacerbation of COPD with chronic hypoxic respiratory failure requiring 2 L of supplemental oxygen, secondary to right lower lobe pneumonia-improving at the time of discharge Sinus tachycardia likely related to the above-change to Xopenex, and is improved today Thrush-start nystatin Moderate protein calorie malnutrition-diet supplement Hypomagnesemia - supplement Admission status: Patient with sepsis and acute hypoxic respiratory failure secondary right lower lobe pneumonia and severe COPD history-medically necessary treatment will span 2 midnights. Inpatient status. ? DS: Summary Hospital Course Hospital Course: Patient presented to the emergency room with increasing cough and shortness of breath, history of chronic hypoxic respiratory failure requiring 2 L of supplemental oxygen for severe COPD. Found to have right lower lobe pneumonia. Treated with IV antibiotics, lower dose steroids secondary to her body habitus, maintain her home theophylline, unable to obtain sputum culture, patient did become more hypoxic with O2 sat of 85% on her 2 L. That was approximately 2 days ago. She been improving since that time. At this point she is at 95% on her 2 L. She is likely due to desaturation with ambulation, but feels comfortable going home since she has everything set up at home already. At this point we will discharge patient to home in improving condition. Medications see list. See me in the office next week. Time Spent with Patient Time attestation: Total time spent providing and/or coordinating discharge services: Exam Constitutional Vital Signs, click to edit/add: Last Vital Signs Temp 97.6 F 04/06/24 07:32 Pulse 95 H 04/06/24 07:32 Resp 22 H 04/06/24 07:32 BP 128/75 04/06/24 07:32 Pulse Ox 91 L 04/06/24 07:32 O2 Del Method Nasal Cannula 04/06/24 07:32 O2 Flow Rate 2 04/06/24 07:32 Documenting provider has reviewed patient's vital signs: yes Common normals: no apparent distress Respiratory Common normals: no retractions and clear to auscultation bilaterally (No wheezing this morning, just had aerosol treatment); abnormal respiratory effort (Almost back to baseline) Auscultation: rhonchi (Much improved, egophony resolved) and diminished lung sounds; no wheezes (Tight wheeze persisting) and no egophony Cardio Common normals: regular rhythm; irregular rate Rate: tachycardic GI Common normals: Normal to inspection, nondistended, normoactive bowel sounds present DS: Data Data Completed and Pending Labs on day of discharge: Labs from last 24 hours 04/06/24 06:05 WBC 16.9 H RBC 4.46 Hgb 12.5 Hct 40.3 MCV 90.4 MCH 28.0 MCHC 31.0 RDW 13.0 Plt Count 203 MPV 10.3 Neut % (Auto) 94.7 H Lymph % (Auto) 1.8 L [place] % (Auto) 2.5 Eos % (Auto) 0.0 L Baso % (Auto) 0.1 L Neut # (Auto) 16.0 H Lymph # (Auto) 0.3 L [place] # (Auto) 0.4 Eos # (Auto) 0.0 Baso # (Auto) 0.0 Abs Immat Gran (auto) 0.15 H Imm/Tot Granulo (auto) 0.9 H Sodium 143 Potassium 3.6 Chloride 100 Carbon Dioxide 41.0 H Anion Gap 5.6 BUN 15.0 Creatinine 0.54 L Est GFR ( Amer) >60 Est GFR (Non-Af Amer) >60 BUN/Creatinine Ratio 27.8 Glucose 205 H Calcium 9.8 Discharge Plan Discharge Disposition: Home, Self-Care Condition: Fair Discharge Medications: New amoxicillin-pot clavulanate 875-125 mg tablet 1 tab PO BID Qty: 20 0RF prednisone 10 mg tablet 40 mg PO DAILY Qty: 32 0RF Rx Instructions: 4/day for 3 days, 3/day for 3 days, 2/day for 3 days, 1/day for 3 days, 1/2 /day for 4 days Continued budesonide 0.5 mg/2 mL suspension for nebulization 0.5 mg inhalation Q12H ipratropium-albuterol 0.5 mg-3 mg(2.5 mg base)/3 mL solution for nebulization 3 ml INHALATION Q6H montelukast 10 mg tablet 10 mg PO .hs theophylline 400 mg tablet extended release 24 hr 400 mg PO DAILY albuterol sulfate [ProAir HFA] 90 mcg/actuation HFA aerosol inhaler 2 inh inhalation QID PRN (Reason: SOB) ferrous sulfate 325 mg (65 mg iron) tablet 325 mg PO BID Qty: 60 11RF cetirizine 10 mg tablet 10 mg PO DAILY Print Language: Macedonian Forms: Portal Instructions
[2024-04-06] MEDS: FERROUS SULFATE 325 MG TABLET PO (08:03)
[2024-04-06] MEDS: MAGNESIUM OXIDE 400 MG TABLET PO (08:03)
[2024-04-06] MEDS: THEOPHYLLINE 300 MG TAB.ER.12H PO (08:03)
[2024-04-06] MEDS: CETIRIZINE HCL 10 MG TABLET PO (08:03)
[2024-04-06] MEDS: ENSURE HP 237 ML LIQUID PO (08:04)
[2024-04-06] MEDS: LEVOFLOXACIN IN DEXTROSE 5 % 750 MG/150 ML PREMIX 100 MG IV (08:05)
[2024-04-06 10:57] VITALS: PULSE 105; O2SAT 95
--- NOTE | 2024-04-07 13:23 | CM.DCFOLLOWU ---
Person spoke with: patient How are you feeling? well, face is red How is your pain? none Did you understand your discharge instructions? yes Do you have any questions about your discharge instructions?no Were you given any prescriptions at discharge?yes Were you able to get your prescriptions filled?yes Do you understand how to take your medications as ordered?yes Do you have any questions about your follow up appointment and do you plan to keep your follow up appointment? Face is red, asked about meds causing it. Advised her to call her PCP, she has called and waiting for call back Is there anything else that you would like to discuss?no Questions/Comments/Concerns/Other:none
== END 2024-04-06 12:37 | disposition home or self-care (01) | DRG 720 ==
LOC: ER 03:38 → MS 04:08
PROVIDERS: Registered Nurse; Admitting Provider Family Medicine; Emergency Provider Emergency Medicine; PCP Family Medicine; Visit Provider Family Medicine
DX: A41.9 Sepsis, unspecified organism (principal); J96.21 Acute and chronic respiratory failure with hypoxia; E44.0 Moderate protein-calorie malnutrition; J18.9 Pneumonia, unspecified organism; J44.0 Chronic obstructive pulmonary disease with (acute) lower respiratory infection; J44.1 Chronic obstructive pulmonary disease with (acute) exacerbation; B37.9 Candidiasis, unspecified; E83.42 Hypomagnesemia; Z68.1 Body mass index [BMI] 19.9 or less, adult; Z87.891 Personal history of nicotine dependence; Z79.52 Long term (current) use of systemic steroids; Z79.899 Other long term (current) drug therapy
CPT/HCPCS: 36415; 71045; 80048; 80053; 83735; 84484; 85007; 85025; 85027; 87040; 87070; 87804; 87811; 93005; 94640; 94667; 94668; 94761; 96365; 96367; 96375; 99285; J0456; J0696; J1650; J2270; J2543; J2919

== ENCOUNTER 2024-04-14 11:25 | Outpatient (RCR) | payer OTHER, SELFPAY ==
--- NOTE | 2024-05-09 13:54 | CR1_ITS ---
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
--- NOTE | 2024-06-06 07:56 | CR1_ITS ---
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
== END 2024-06-06 07:56 | disposition home or self-care (01) ==
LOC: CR 11:25
PROVIDERS: PCP Family Medicine
DX: J44.9 Chronic obstructive pulmonary disease, unspecified (principal)

== ENCOUNTER 2024-04-18 12:11 | Outpatient (OUT) | payer OTHER, SELFPAY ==
--- NOTE | 2024-04-18 12:16 | US_ITS ---
[address] [address] Patient Name: PHOEBE STANLEY MRN: [id number] date: 1960 Sex: F Assigned Patient Location: [facility] Current Patient Location: [facility] Accession/Order Number: [id number] Exam Date: 04/18/2024 12:30 Report Date: 04/18/2024 13:30 At the request of: ADITHYA KENYON Procedure: US venous doppler UE RT EXAM: US venous doppler UE RT HISTORY: Arm Edema COMPARISON: None. TECHNIQUE: Grayscale, color and Doppler FINDINGS: Region: Right arm Thrombus: None Flow: Normal Compressibility: Normal US/US venous doppler UE RT IMPRESSION: No deep or superficial vein thrombus identified in the right arm Electronically authenticated by: JULES RAMIREZ Date: 04/18/2024 13:30
== END 2024-04-18 12:12 | disposition home or self-care (01) ==
LOC: RAD 12:12
PROVIDERS: PCP Family Medicine; Visit Provider Family Medicine
DX: R60.0 Localized edema (principal)
CPT/HCPCS: 93971

== ENCOUNTER 2025-02-20 13:04 | Outpatient (OUT) | payer OTHER, SELFPAY ==
--- NOTE | 2025-02-20 13:07 | XR_ITS ---
The [address] [address] Patient Name: PHOEBE STANLEY MRN: [id number] date: 1960 Sex: F Assigned Patient Location: [facility] Current Patient Location: Accession/Order Number: [id number] Exam Date: 02/20/2025 13:15 Report Date: 02/21/2025 08:24 At the request of: ADITHYA KENYON MD Procedure: XR hip BI w PEL 1V ADULT PELVIS WITH BILATERAL HIPS - 5 views CLINICAL HISTORY: Chronic bilateral hip pain laterally. No reported injury. COMPARISON: CT 06/06/2023 AP view of the pelvis as well as AP and frog-lateral views of both hips were obtained. No fracture, dislocation or bony destruction is seen. The hip joint spaces are symmetric. There is minor marginal spurring. The SI joints are intact. The soft tissues are unremarkable. Atherosclerotic plaque is visualized. XR/XR hip BI w PEL 1V IMPRESSION: MINOR DEGENERATIVE CHANGE. NO ACUTE PLAIN FILM FINDINGS. Impression dictated by: Jeanette Carlin M.D. 02/21/2025 8:24 AM Dictation Location: [place] [address] Electronically authenticated by: [id number] Y Date: 02/21/2025 08:24
--- OUTSIDE RECORDS SUMMARY | 2025-02-20 13:07 | XMS_ITS | Clinical Summary ---
Author Organization [facility] Address [address] [place] [address] Phone Care Team Providers Care [employer] Superintendent Name Role Phone Kaiden Bass MD Primary Care Provider [phone] Social History Tobacco UseTypesPacks/DayYears UsedDateSmoking Tobacco: Never Assessed CommentsUnknownSex and Gender InformationValueDate RecordedSex Assigned at Not on fileLegal TyoGhdcfe65/26/2022 12:57 AM ESTGender IdentityNot on file Sexual OrientationNot on file Plan of Treatment Not on file Care Teams Team MemberRelationshipSpecialtyStart DateEnd Date Kaiden Bass MD [address] [facility] [place] [address] PCP - General12/03/11
--- OUTSIDE RECORDS SUMMARY | 2025-02-20 13:07 | XMS_ITS | Clinical Summary ---
Author Organization [facility] Address [address] [place] [address] Care Team Providers Care Shape Hand Name Role Phone Kaiden Bass MD Primary Care Provider [phone] Allergies No known active allergies Medications MedicationSigDispense QuantityRefillsLast FilledStart DateEnd DateStatus cetirizine (ZyrTEC) 10 MG tablet Take 10 mg by mouth Daily09/19/2022ctive Respiratory Therapy Supplies (CareTouch CPAP & BIPAP Hose) [facility] 10/02/2022ctive Mucus Relief 600 MG 12 hr tablet Take 1,200 mg by mouth in the morning and 1,200 mg before bedtime.08/15/2022 Active sodium chloride 3 % nebulizer solution Take by nebulization if qmjnab3401/06/2022ctive fluticasone (Flonase) 50 MCG/ACT nasal spray Administer 2 sprays into each nostril Daily01/15/2023ctive ferrous sulfate 325 (65 Fe) MG tablet Take 1 tablet by mouth in the morning and 1 tablet before bedtime.05/09/2023 Active Dextromethorphan-guaiFENesin ([employer] Mucus DM Extended Release) 30-600 MG tablet sustained-release 12 hour Take 1 tablet by mouth every 12 (twelve) hours if ujsdrq7206/16/2023ctive albuterol (2.5 MG/3ML) 0.083% nebulizer solution Indications:Chronic obstructive pulmonary disease, unspecified COPD type (HCC) Take 3 mL (2.5 mg) by nebulization every 6 (six) hours if needed for wheezing 225 mL ctive albuterol HFA (Ventolin HFA) 90 mcg/act inhaler Indications:Chronic obstructive pulmonary disease, unspecified COPD type (HCC) Inhale 2 puffs every 6 (six) hours 18 g ctive ipratropium-albuterol (Duo-Neb) 0.5-2.5 mg/3 mL nebulizer solution Indications:Chronic obstructive pulmonary disease, unspecified COPD type (HCC) INHALE 1 VIAL VIA NEBULIZER 4 TIMES DAILY 180 mL ctive montelukast (Singulair) 10 MG tablet Indications:Chronic obstructive pulmonary disease, unspecified COPD type (HCC) Take 1 tablet (10 mg) by mouth at bedtime 30 tablet ctive theophylline ER (Ricky-24) 200 MG 24 hr capsule Indications:Chronic obstructive pulmonary disease, unspecified COPD type (HCC) Take 1 capsule (200 mg) by mouth 1 (one) time each day at the same time 30 capsule ctive budesonide (Pulmicort) 0.5 MG/2ML nebulizer solution Indications:Chronic obstructive pulmonary disease, unspecified COPD type (HCC) Take 2 mL (0.5 mg) by nebulization in the morning and 2 mL (0.5 mg) before bedtime. 120 mL ctive Active Problems ProblemNoted DateDiagnosed DateMetastasis to cervical lymph node12/07/2023 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08/17/2023Foreign body of left ear 08/17/2023Lung hubajn7910/21/2022Lung field ygntztud38/11/2023hronic obstructive pulmonary qplfopi4810/13/2022bnormal CT scan of lung10/13/2022Non-small cell cancer of left lung04/07/2018Centrilobular vlcmdzcuv22/20/2018Chronic respiratory failure with krsoheb4303/02/2018 Overview (10/21/2022): Nigh time oxygen Lung nodule, ncovqjvz14/20/2018 Resolved Problems ProblemNoted DateDiagnosed DateResolved DateSupplemental oxygen dependent / Overview (11/30/2023): Last Assessment & Plan: Assessment: On continuous supplemental O2, 2L via NC. Immunizations ImmunizationAdministration DatesNext DueInfluenza, High Dose Seasonal, Preservative Free02/10/2019Influenza, Yssipivghii08/12/2021Influenza, injectable, MDCK, preservative free, dafseekuhcih66/17/2023,03/02/2020, 02/02/2019Influenza, injectable, rwjonqycvbqw63/05/2022,03/02/2018Influenza, injectable, quadrivalent, preservative free03/04/2022,03/19/2021Influenza, seasonal, vpzwqyyqqc84/29/2022 Family History Medical HistoryRelationNameCommentsAlzheimer's diseaseFatherCOPDFatherEmphysema FatherHeart diseaseFatherMental illnessFatherHeart diseaseMotherCoronary artery diseaseOtherHeart diseaseSiblingRelationNameStatusCommentsFatherDeceasedMother AliveOtherSibling Social History Tobacco UseTypesPacks/DayYears UsedDateSmoking Tobacco: FormerCigarettes Smokeless Tobacco: Never Tobacco Cessation:Counseling Given: Not Answered Alcohol UseStandard Drinks/WeekCommentsNever0 (1 standard drink = 0.6 oz pure alcohol)caffeine intake: more than 4 cups per dayCommentsUnknownSex and Gender InformationValueDate RecordedSex Assigned at BirthNot on fileLegal Sex Saeldc7306/25/2022 7:00 PM EDTGender IdentityNot on fileSexual OrientationNot on file Last Filed Vital Signs Vital SignReadingTime TakenCommentsBlood Hbacktzw732/7408/16/2024 11:06 AM EDT Lcpsz52412/06/2025 11:06 AM EDTTemperature--Respiratory Rate--Oxygen Saturation 94%09/10/2023 1:52 PM EDTInhaled Oxygen Concentration--Sobdmc80.5 kg (96 lb) 08/16/2024 11:06 AM DGNKtagdc475.6 cm (5' 4 )08/16/2024 11:06 AM EDTBody Mass Index16.48008/16/2024 11:06 AM EDT Plan of Treatment DateTypeDepartmentCare Team (Latest Contact Info)Jrscwzggzvr08/19/2025 1:00 PM ESTOffice Visit [facility] [place] [facility] [address] [place] [address] Magaly Dale MD [address] [facility] [address] [place] [address] Insurance * Guarantor: Cinthia Guerrero AAccount TypeRelation to PatientDate of BirthPhone Billing AddressPersonal/SwmqtyDjia[birth year][address] [address] Care Teams Team MemberRelationshipSpecialtyStart Date Kaiden Bass MD [address] [place] [id number] PCP [facility]08/16/24
--- OUTSIDE RECORDS SUMMARY | 2025-02-20 13:07 | XMS_ITS | Clinical Summary ---
Author Organization [facility] Address [address] [place], [place] [address] Care Team Providers Care Traffic Checker Name Role Phone Kaiden Bass MD Primary Care Provider [phone] Allergies No known active allergies Medications MedicationSigDispense QuantityRefillsLast FilledStart DateEnd DateStatus albuterol (PROVENTIL) 2.5 mg/0.5 mL nebulizar solution PEDIATRIC ASTHMA Inhale 2.5-5 mg as instructed as directed.Active Cetirizine 10 mg cap Take by mouth.Active Theophylline SR (MI-24) 400 mg 24 hr capsule Take 200 mg by mouth once daily.Active montelukast (SINGULAIR) 10 mg tablet Take 10 mg by mouth daily at bedtime.Active ipratropium/albuterol sulfate (DUONEB INHALATION) Inhale as instructed.Active budesonide (PULMICORT) 1 mg/2 mL nebulizer solution INHALE 1 VIAL VIA NEBULIZER TWICE A DAY04/27/2019Active iv contrast (will be provided with radiology test) Indications:Neoplasm of lungCT Chest W -Inject, intravenously, once for 1 dose.No IV access, insert saline lock prior to the beginning of sedation, infusion, injection of imaging exam. Discontinue saline lock post exam. If Pt. h as a central line or IVAD, may access for administration according to line specific nursing protocol. Once exam is complete flush line and de-access according to line specific nursing protocol in theCT contrast administration guidelines link. 1 Each 4Active predniSONE 10 mg tablet pack 5 tabs per day for 3 days, 4 tabs per day for 3 ays, 3 tabs perday for 3 days, 2 tabs per day for 3days, 1 tab a day for 3 days, 1/2 tab a day for 4 days Orally Once a day for 19 days10/21/2023ctive ferrous sulfate 325 mg (65 mg iron) tablet Twice daily12/21/2023ctive doxycycline monohydrate (MONODOX) 100 mg capsule 1 capsule.01/25/2024ctive dextromethorphan-guaiFENesin (MUCINEX DM) 30-600 mg per tablet 1 tablet as needed Orally every 12 hrs06/16/2023ctive sodium chloride (NEBUSAL) 3 % nebulizer solution INHALE 1 VIAL VIA NEBULIZER TWICE A DAYActive Active Problems ProblemNoted DateDiagnosed DateMetastasis to cervical lymph node12/07/2023OPD, wxvmwx1211/17/2023 Assessment & Plan (11/17/2023 3:29 PM EDT): Assessment: Compliant on Singulair, theophylline, Pulmicort BID and DuoNeb 4x per day. On continuous supplemental oxygen, 2L via NC. Follows with outside pulm at [facility], Dr. Valery DAVIS in October per pt. Diminished breath sounds bilaterally throughout, no wheezing. SpO2 95% on 2L O2. Pt reports that she started prednisone taper from her business solutions architect today, currently taking prednisone 40 mg. Ptreports she called business solutions architect's office because she felt like her breathing was bad , pt unable to elaborate as to what she meant by her breathing being bad . Pt stated that she feels like the hot, humid weather is making her breathing problems progress . Denies increased SOB or cough. Supplemental oxygen lmtjoihom33/06/2024 Assessment & Plan (11/17/2023 3:30 PM EDT): Assessment: On continuous supplemental O2, 2L via NC. Former ivcdpy7911/17/2023 Assessment & Plan (11/17/2023 3:29 PM EDT): Assessment: Quit 2012, 52.5 pack year hx. Non-small cell cancer of left lung04/07/2018 Cancer Staging: Clinical stage from 04/07/2018:Stage IA2(cT1b, cN0, cM0) - Signed by Greta Higgins on 04/07/2018 Assessment & Plan (11/17/2023 3:24 PM EDT): Assessment: 2019, treated with SBRT. Lung nodule, /20/2018Centrilobular rmowseyla84/20/2018Chronic respiratory failure with iajveho1603/02/2018 Immunizations ImmunizationAdministration DatesNext Dueinfluenza (IIV4) vaccine, age 6 mo - 64 yr, quadrivalent (AFLURIA, FLULAVAL, FLUZONE)03/02/2018influenza (IIV4) vaccine, age 6 mo - 64 yr, quadrivalent, PF (AFLURIA, FLUARIX, FLULAVAL, FLUZONE) 03/04/2022,03/19/2021influenza (ccIIV4) vaccine, age 6+ mo, quadrivalent, PF (FLUCELVAX)03/02/2020,02/02/2019influenza vaccine, unspecified formulation 02/22/2021 Family History Medical HistoryRelationCommentsAnesthesia ProblemsNo Family HistoryAsthmaNo Family HistoryCancerNo Family HistoryDVTNo Family History Social History Tobacco UseTypesPacks/DayYears UsedDateSmoking Tobacco: FormerCigarettes1.535 1977 - 2012Smokeless Tobacco: Never Tobacco Cessation:Counseling Given: Not Answered Alcohol UseStandard Drinks/WeekCommentsYes3 (1 standard drink = 0.6 oz pure alcohol)PHQ-2AnswerDate RecordedPHQ-2 xudbt6314Area Deprivation Index AnswerDate RecordedNational Score (1-100), lower number is lower risk63 11/27/2022State Score (1-10), lower number is lower ordm2123Data from: https://www.neighborhoodatlas.medicine.[facility].edu/. 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 [employer] Not on fileNot on fileNot on file Last Filed Vital Signs Vital SignReadingTime TakenCommentsBlood Qlnwvlzs701/76005/27/2024 2:02 PM EST Npkeq68382/14/2025 2:02 PM JYZPoclgxqtstp66.6 ??C (97.8 ??F)05/27/2024 2:02 PM ESTRespiratory Ubrk253305/27/2024 2:02 PM ESTOxygen Bmnyjakgzf88%05/27/2024 2:02 PM ESTInhaled Oxygen Concentration--Wtjwll14.6 kg (93 lb 14.7 oz)05/27/2024 2:02 PM GBGOnvxki674.6 cm (5' 4 )11/18/2023 3:27 PM EDTBody Mass Index16.12011/18/2023 3:27 PM EDT Plan of Treatment DateTypeDepartmentCare Team (Latest Contact Info)Yrmztojbhxe65/12/2026 10:45 AM ESTAppointment Radiology Pet CT [address] [place], [place] [id number] CT Chest06/01/2025 11:00 AM ESTOffice Visit Radiation Oncology [address] [place] [address] [place] [address] Abdi Iqbal MD [address] [place] [address] 1 year follow upHealth MaintenanceDue DateLast DoneCommentsAnnual PCP Team Chronic Disease Visit08/26/1979Anxiety Ytpuxogrw95/15/1980Depression Screening 08/26/1979HIV Pbixxrful77/15/1980Hepatitis C Tumoznlge54/15/1980DTaP,Tdap,Td Vaccine (1 - Tdap)1980Pneumococcal Vaccine: 50+ (1 of 2 - PCV)1980 Cervical Cancer Tqlqohipd30/15/1983Mammogram Wgkakrlfh28/15/2002CT Colonography 2006Cologuard (FIT-DNA)08/25/20067328Qgzvbtobcrd76/15/2007Colorectal Cancer Asbjzjbdh42/15/2007Fecal Occult Blood2006Lipid Hscnnvfqh07/15/2007 Orchwxfzrmrkm38/15/2007Shingrix Vaccine (1 of 2)08/26/2011RSV Vaccine (1 - Risk 60-74 years 1-dose series)2Covid-19 Vaccine (1 - season) 2024Influenza Vaccine (#1)510/, 02/27/2023, 03/17/2022, Additional history existsDiabetes Pqwrfbmhm48, 04/24/2022, 03/02/2018 Procedures Procedure NamePriorityDate/TimeAssociated DiagnosisCommentsBASIC METABOLIC PANEL Xocgvtg0811/17/2023 3:31 PM EDT Preoperative examination from Last 3 Months or Most Recently Relevant to Health Maintenance Results * (ABNORMAL) BASIC METABOLIC PANEL (11/17/2023 3:31 PM EDT)ComponentValueRef RangeTest MethodAnalysis TimePerformed AtPathologist IvlkmghpvHjoqwun985(H)74 - 99 mg/dL11/17/2023 4:08 PM EDTMEDINA LABORATORYComment: The [place] Diabetes Association (ADA) provides guidance for cutoff values for fasting glucose andrandom glucose. The ADA defines fasting as no [...] Standards of Medical Care in Diabetes 2016, [place] [employer]. Diabetes Care. 2016.39(Suppl 1). BUN87 - 21 mg/dL11/17/2023 4:08 PM EDTMEDINA LABORATORYCreatinine0.37(L)0.58 - 0.96 mg/dL11/17/2023 4:08 PM EDTMEDINA RBHDLBJTQMBsppsr448693 - 144 mmol/L 11/17/2023 4:08 PM EDTMEDINA LABORATORYPotassium3.93.7 - 5.1 mmol/L11/17/2023 4:08 PM EDTMEDINA CWYOHIFNEYKrlsqbbq04(L)98 - 107 mmol/L11/17/2023 4:08 PM EDT DUNCAN BKLTUWYKNEMO522(H)22 - 30 mmol/L11/17/2023 4:08 PM EDTMEDINA LABORATORY Anion Gap88 - 15 mmol/L11/17/2023 4:08 PM EDTMEDINA LABORATORYCalcium, Total9.7 8.5 - 10.2 mg/dL11/17/2023 4:08 PM EDTMEDINA LABORATORYEstimated Glomerular Filtration Ctvo614>=60 mL/min/1.73m 11/17/2023 4:08 PM EDTMEDINA LABORATORYComment:Estimated Glomerular Filtration Rate (eGFR) is calculated using the 2020 CKD-EPI creatinine equation. This equation utilizes serum creatinine, sex, and age as parameters. The creatinine assay has traceable calibration to isotope dilution-mass spectrometry. Refer to KDIGO guidelines for clinical interpretation. In patients with unstable renal function, e.g. those with acute kidney injury, the eGFRmay not accurately reflect actual GFR.Specimen (Source)Anatomical Location / LateralityCollection Method / VolumeCollection TimeReceived TimeBloodBLOOD SPECIMEN / Unknown Venipuncture / Ovjvawc4411/17/2023 3:31 PM EDT11/17/2023 3:31 PM EDT Narrative Authorizing ProviderResult TypeResult StatusBrie MINOR-CLABORATORYFinal ResultPerforming OrganizationAddressCity/State/ZIP CodePhone Number [facility] [address] [place] [address], from Last 3 Months or Most Recently Relevant to Health Maintenance Insurance Care Teams Team MemberRelationshipSpecialtyStart Date Kaiden Bass MD PCP - GeneralFamily Knejfvie48/15/18
--- OUTSIDE RECORDS SUMMARY | 2025-02-20 13:23 | XMS_ITS | CCD ---
Author Organization [facility] Care Team Providers Care Load Out Supervisor Name Role Phone Adithya Kenyon Unavailable Unavailable JAYE HOUGH Unavailable Unavailable ADITHYA KENYON Unavailable Unavailable ABDOH, MAMOUN Unavailable Unavailable Adithya Kenyon MD Primary Care Provider [phone] Adithya Kenyon MD Primary Care Provider [phone] Adithya Kenyon MD Primary Care Provider [phone] Un[address] JOSE CONDE Admitting [...] HOY ., DR HAJI Primary Care Unavailable [place], DR JULES [employer] Unavailable HOY ., [...] Care Provider [phone] TEO CRAFT Referring Unavailable ADITHYA KENYON Primary Care Unavailable TEO CRAFT Referring Unavailable ADITHYA KENYON Primary Care Unavailable ADITHYA KENYON Primary Care Unavailable BRIE KAUR Referring Unavailable MD Adithya Kenyon [phone] [place] [facility] MD Mg Vaughn Admit Provider [phone] MD Mg Vaughn Attending Provider MD Adithya Kenyon Primary Care Provider [phone] [facility] [place] [facility] [phone] MD Mg Vaughn Admit Provider MD Cassandra Andersen Attending Provider MD Denver Rasmussen Other Provider Adithya Kenyon MD Primary Care Provider [phone] [facility] Rip [facility] Emergency Provider [phone] Mg Vaughn MD Admit Provider Cassandra Andersen MD Attending Provider Denver Rasmussen MD Other Provider Denver Rasmussen MD Attending Provider Adithya Kenyon MD Primary Care Provider [phone] Adithya Kenyon Primary Care Unavailable Denver Rasmussen Attending Unavaila ble Denver Rasmussen Admitting Unavaila ble Adithya Kenyon Primary Care Unavailable Cassandra Andersen Attending Unavailable Ally Warner Admitting Unavailable Hoy, Adithya M Primary Care Unavailable Cassandra Andersen Attending Unavailable Denver Rasmussen Consulting UnavailMg Muller Admitting Unava ilable TEO CRAFT Attending Unavailable LINDY, ABDI Referring [...] Unavailable HOY, ADITHYA M Primary Care Unavailable KHUSHBOO MCINTYRE MD Admitting Unavailable KHUSHBOO MCINTYRE MD Attending Unavailable HOY, ADITHYA M Primary Care Unavailable HOY, ADITHYA M Primary Care Unavailable Adithya Kenyon MD Primary Care Provider [phone] Adithya Kenyon MD Primary Care Provider [phone] CARLA MONTAGUE Attending Unavailable ANA DRIVER Attending Unavailable CARLA MONTAGUE Attending Unavailable Adithya Kenyon MD Primary Care Provider [phone] Denver Rasmussen MD Attending Provider Allergies Allergy ClassificationReported Allergen(s)Allergy TypeDate of OnsetReaction(s) Facility (20 sources)levoFLOXacin; Translations: [LEVOFLOXACIN]Drug [id number] [facility] [place] [facility] (2 sources)levoFLOXacinDrug AllergyThe [facility] Medications Current Medications MedicationDrug Class(es)DatesSig (Normalized)Sig (Original)[id number] 200 actuat albuterol 0.09 mg/actuat metered dose inhaler (20 sources)beta2-Adrenergic AgonistStart: 55-92-7823Spagpbsxs Sulfate 90 mcg/actuation HFA aerosol inhaler Active 2 INH INHALATION Every 6 hours as need ed for shortness of breath or wheezing September 29, 2023 12:00am Complies with drug therapyStart: 34-34-0293kdixjydra (2.5 MG/3ML) 0.083% nebulizer solution Indications: Chronic obstructive pulmonary disease, unspecified COPD type (CMS/HCC) Take 3 mL (2.5 mg) by nebulization every 6 (six) hours if needed for wheezing 225 mL 5 09/11/2023 ActiveStart: 36-38-8930jodo 2 puff(s) by inhalation every six hoursalbuterol HFA (Ventolin HFA) 90 mcg/act inhaler Indications: Chronic obstructive pulmonary disease,unspecified COPD type (CMS/HCC) Inhale 2 puffs every 6 (six) hours 18 g 5 09/11/2023 Activealbuterol (PROVENTIL) 2.5 mg/0.5 mL nebulizar solution PEDIATRIC ASTHMA Inhale 2.5-5 mg as instructed as directed. Activetake 2 puff(s) by inhalation every four hours as neededVentolin HFA 108 (90 Base) MCG/ACT 2 puffs as needed Inhalation every 4 hrs ActiveComment on above:Inhale 2.5-5 mg as instructed as directed.albuterol 0.833 mg/ml / ipratropium bromide 0.167 mg/ml inhalation solution (20 sources)Anticholinergic, beta2-Adrenergic AgonistStart: 14-38-1756gjid 1 dose by inhalation four times dailyipratropium-albuterol (Duo-Neb) 0.5-2.5 mg/3 mL nebulizer solution Indications: Chronic obstructivepulmonary disease, unspecified COPD type (CMS/HCC) INHALE 1 VIAL VIA NEBULIZER 4 TIMES DAILY 180 mL 5 09/11/2023 ActiveStart: 05-13-2023 End: 58-41-6624ncry 1 mL by inhalation every six hoursIpratropium-Albuterol 0.5 mg-3 mg(2.5 mg base)/3 mL solution for nebulization Active 3 ML INHALATION Q6H 360 June 16, 2024 1:03pm Complies with drug therapyIpratropium-Albuterol 0.5-2.5 (3) MG/3ML DIRECTED Inhalation Activeazithromycin 250 mg oral tablet (5 sources)Macrolide AntimicrobialStart: 07-04-2024 End: 88-98-2647aghi 1 tablet by mouth in the morningazithromycin (Zithromax) 250 MG tablet Indications: Chronic obstructive pulmonary disease, unspecified COPD type (CMS/HCC) TAKE 1 TABLET BY MOUTH IN THE MORNING 30 tablet 5 07/04/2024 08/16/2024 Discontinued (Therapy completed)Bilevel Positive Airway Pressure (Bipap) (7 sources)Start: 68-26-4381Jpxqbjx Positive Airway Pressure (Bipap) Active 0 .Route December 03, 2023 9:28am As directed [facility] not using at this time Start: 09-29-2023 End: 03-84-0267Mchqaqx Positive Airway Pressure (Bipap) Discontinued 0 .ROUTE September 29, 2023 12:00am November 9:28am As directed [facility] DMEStart: 50-14-2203Mpevdqg Positive Airway Pressure (Bipap) Active 0 .ROUTE September 29, 2023 12:00am As directed [facility] DMEBilevel Positive Airway Pressure (Bipap) unit (16 sources)Start: 67-66-8105Aarpqtl Positive Airway Pressure (Bipap) unit Active 0 .Route February 23, 2024 3:42pm As directed with O2 at 2 liters DME HARTStart: 04-85-8037Ggxcoow Positive Airway Pressure (Bipap) unit Active 0 .Route February 23, 2024 2:42pm As directed with O2 at 2 liters DME HARTStart: 02-23-2024 End: 77-21-4835Wqadsza Positive Airway Pressure (Bipap) unit Discontinued 0 .Route February 23, 2024 1:00am February 23, 2024 3:42pm As directedStart: 02-23-2024 End: 00-24-0207Seepprz Positive Airway Pressure (Bipap) unit Discontinued 0 .Route February 23, 2024 12:00am February 23, 2024 2:42pm As directedStart: 12-03-2023 End: 06-49-9819Tujjdlx Positive Airway Pressure (Bipap) unit Discontinued 0 .Route December 03, 2023 9:28am February 23, 2024 3:42pm As directed [facility] not using at this timeStart: 12-03-2023 End: 93-99-3108Izzaanb Positive Airway Pressure (Bipap) unit Discontinued 0 .Route December 03, 2023 8:28am February 23, 2024 2:42pm As directed [facility] not using at this timeStart: 09-29-2023 End: 91-22-5998Xkjihsj Positive Airway Pressure (Bipap) unit Discontinued 0 .ROUTE September 29, 2023 12:00am December 03, 2023 9:28am As directed TERRY ROCHA Start: 09-29-2023 End: 22-81-1567Aukdkxm Positive Airway Pressure (Bipap) unit Discontinued 0 .ROUTE September 28, 2023 11:00pm December 03, 2023 8:28am As directed [facility] budesonide 0.25 mg/ml inhalation suspension (20 sources)CorticosteroidStart: 65-02-2886gkwtsoeoml (Pulmicort) 0.5 MG/2ML nebulizer solution Indications: Chronic obstructive pulmonary disease, unspecified COPD type (CMS/HCC) Take 2 mL (0.5 mg) by nebulization in the morning and 2 mL (0.5 mg) before bedtime. 120 mL 5 10/06/2023 ActiveStart: 05-13-2023 End: 67-19-0674serm 0.5 mg by inhalation every twelve hoursBudesonide 0.5 mg/2 mL suspension for nebulization Active 0.5 MG INHALATION Q12H 120 June 16, 025 1:03pm DX J44.9 COPD Complies with drug therapyStart: 34-06-0013jnjk 1 dose by inhalation twice dailybudesonide (PULMICORT) 1 mg/2 mL nebulizer solution INHALE 1 VIAL VIA NEBULIZER TWICE A DAY 04/27/2019 Activetake 1 mL by inhalation twice dailyPulmicort 0.5 MG/2ML 1 mL Inhalation Twice a day ActiveComment on above:INHALE 1 VIAL VIA NEBULIZER TWICE A DAYcetirizine hydrochloride 10 mg oral tablet (20 sources)Histamine-1 Receptor AntagonistStart: 61-25-0169kmpn 1 tablet by mouth once dailyCetirizine 10 mg tablet Active 10 MG PO Daily September 29, 2023 12:00am Complies with drug therapyCetirizine 10 mg cap Take by mouth. Activetake 1 tablet by mouth every twenty-four hoursCetirizine HCl 10 MG 1 tablet Orally Once a day ActiveComment on above:Take by mouth.12 hr dextromethorphan hydrobromide 30 mg / guaiFENesin 600 mg extended release oral tablet (12 sources)Uncompetitive Y-pzrbny-V-aspartate Receptor Antagonist, Sigma-1 AgonistStart: 15-44-7562gtit 1 tablet by mouth onceDextromethorphan-guaiFENesin ([facility] Mucus DM Extended Release) 30-600 MG tablet sustained-release 12 hour Take 1 tablet by mouth every 12 (twelve) hours if needed 06/16/2023 ActiveStart: 69-98-2418twwv 1 tablet by mouth every twelve hours as neededdextromethorphan- guaiFENesin (MUCINEX DM) 30-600 mg per tablet 1 tablet as needed Orally every 12 hrs 06/16/2023 Activedoxycycline monohydrate 100 mg oral capsule (4 sources)Tetracycline-class DrugStart: 45-15-3356bmrwgnmwquu monohydrate (MONODOX) 100 mg capsule 1 capsule. 01/25/2024 Activeferrous sulfate 325 mg oral tablet (17 sources)Start: 96-80-2426vruo 1 tablet by mouth twice dailyFerrous Sulfate 325 mg (65 mg iron) tablet Active 325 MG PO Twice daily December 21, 2023 12:00amComplies with drug therapyfluticasone propionate 0.05 mg/actuat metered dose nasal spray (8 sources)CorticosteroidStart: 69-59-1912xemv 2 spray(s) nasal route once daily fluticasone (Flonase) 50 MCG/ACT nasal spray Administer 2 sprays into each nostril Daily 01/15/2023ctiveStart: 72-76-1300bwcm 2 spray(s) nasal route in the morningfluticasone (Flonase) 50 MCG/ACT nasal spray Administer 2 sprays into each nostril in the morning. 01/15/2023 Ljsxtb13 hr guaiFENesin 600 mg extended release oral tablet (17 sources)Start: 82-04-1754nkpt 1 tablet by mouth twice daily as needed for cough, then take 1 tablet by mouth every twelve hours as needed for cough Guaifenesin (Mucinex) 600 mg Tablet Extended Release 12hr Active 600 MG PO Twice daily as needed for cough May 17, 2023 1:00am Complies with drug therapyStart: 64-86-0061udah 1 tablet by mouth every twelve hours in the morning Mucus Relief 600 MG 12 hr tablet Take 1,200 mg by mouth in the morning and 1,200 mg before bedtime.08/15/2022 Activeipratropium/albuterol sulfate (DUONEB INHALATION) (20 sources)ipratropium/albuterol sulfate (DUONEB INHALATION) Inhale as instructed. Activeipratropium/albuterol sulfate (DUONEB INHALATION) Inhale as instructed. 0 ActiveComment on above:Inhale as instructed.montelukast 10 mg oral tablet (20 sources)Leukotriene Receptor AntagonistStart: 22-74-2974zdgr 1 tablet by mouth at bedtimeMontelukast 10 mg tablet Active 10 MG PO Bedtime May 13, 2023 1:00am Complies with drug therapyComment on above:Take 10 mg by mouth daily at bedtime.nystatin 712339 unt/ml oral suspension (12 sources)Polyene AntifungalStart: 62-36-6411ribg 407124 [IU] by mouth three times daily as neededNystatin 100,000 unit/mL Suspension Active 305152 UNIT PO Three times daily as needed for White yeast in your mouth May 17, 2023 9:48am Complies with drug therapyNystatin 643302 units/mL 1 mL to each cheek Four times a day Rqymqq04 actuat olodaterol 0.0025 mg/actuat / tiotropium 0.0025 mg/actuat inhalation spray (20 sources)Anticholinergic, beta2-Adrenergic AgonistStart: 07-28-2024 End: 87-35-6110moqhrdronv-olodaterol (Stiolto Respimat) 2.5-2.5 MCG/ACT aerosol solution inhaler Indications: Chronic obstructive pulmonary disease, unspecified COPD type ([facility]) INHALE 2 PUFFS ONCE A DAY AT THE SAME TIME 4 g 5 07/28/2024 08/16/2024 Discontinued (Therapy completed)Start: 09-29-2023 End: 13-83-1706Vikdvrtyvj-Olodaterol (Stiolto Respimat) 2.5-2.5 mcg/actuation mist Discontinued 2 INH INHALATION Daily September 29, 2023 12:21pm September 29, 2023 1:26pmStart: 09-29-2023 End: 06-82-7164Ypvcefxaks-Olodaterol (Stiolto Respimat) 2.5-2.5 mcg/actuation mist Discontinued 2 INH INHALATION Daily September 29, 2023 1:21pm September 29, 2023 2:26pmStart: 17-15-5237Jrqnlmdhtn-Olodaterol (Stiolto Respimat) 2.5-2.5 mcg/actuation mist Active 2 INH INHALATION Daily September 29, 2023 1:21pmStart: 09-11-2023 End: 41-16-3108ilgxwjpsko-olodaterol (Stiolto Respimat) 2.5-2.5 MCG/ACT aerosol solution inhaler Indications: Chronic obstructive pulmonary disease, unspecified COPD type ([facility]) Inhale 2 Inhalation 1 (one) time each day at the same time 4 g 5 09/11/2023 03/01/2024 Discontinued (Therapy completed)Start: 05-13-2023 End: 27-18-4029Vaoznouilu-Olodaterol (Stiolto Respimat) 2.5-2.5 mcg/actuation mist Discontinued 2 PUFF INHALATION Daily May 13, 2023 12:00am September 29, 2023 12:24pmStart: 05-13-2023 End: 59-14-1177Huuohkvplp-Olodaterol (Stiolto Respimat) 2.5-2.5 mcg/actuation mist Discontinued 2 PUFF INHALATION Daily May 13, 2023 1:00am September 29, 2023 1:24pmStart: 55-71-9748Xmuoqbdutj-Olodaterol (Stiolto Respimat) 2.5-2.5 mcg/actuation mist Active 2 PUFF INHALATION Daily May 13, 2023 12:00am Start: 11-01-2018 End: 27-73-6190KVMLBSP RESPIMAT 2.5-2.5 mcg/actuation mist TAKE 2 PUFFS BY MOUTH EVERY DAY 12 11/01/2018 11/17/2023 DiscontinuedStiolto Respimat 2.5-2.5 MCG/ACT 2 puffs Inhalation Once a day ActiveComment on above:TAKE 2 PUFFS BY MOUTH EVERY DAYoxyCODONE hydrochloride 5 mg oral tablet (1 source)Opioid AgonistStart: 11-18-2023 End: 88-51-8414klhb 1 tablet by mouth every six hours as needed for pain oxyCODONE IR (ROXICODONE) 5 mg immediate release tablet Indications: Lymphadenopathy Take 1 tablet by mouth every 6 hours as needed for pain for up to 3 days. 8 tablet 0 11/18/2023 11/21/2023 ActiveOxygen (8 sources)Start: 15-01-3626Egaiaj Active 0 .Route September 29, 2023 1:31pm As directed DME HARTStart: 09-29-2023 End: 53-41-3055Wcnlkc Discontinued 0 .Route September 29, 2023 12:00am September 29, 2023 1:32pm As directedoxygen as ordered (3 sources)oxygen as ordered [facility] ActiveOxygen unit (8 sources)Start: 15-81-9757Aaxyke unit Active 0 .Route September 29, 2023 1:31pm As directed DME HARTStart: 37-06-1973Ywywme unit Active 0 .Route September 29, 2023 12:31pm As directed DME HARTStart: 09-29-2023 End: 09-92-3485Ruhnse unit Discontinued 0 .Route September 29, 2023 12:00am September 29, 2023 1:32pm As directedStart: 09-29-2023 End: 74-69-1200Vjvbed unit Discontinued 0 .Route September 28, 2023 11:00pm September 29, 2023 12:32pm As directedRespiratory Therapy Supplies (CareTouch CPAP & BIPAP Hose) [facility] [place] ([place] sources)Start: 08-84-3981Ephbxxmfoxs Therapy Supplies (CareTouch CPAP & [facility] Hose) [facility] 10[facility]/2022 ActiveStart: 84-25-9573Hoorgecpkcx Therapy Supplies (CareTouch CPAP & BIPAP Hose) [facility] [place] [facility] 10/02/2022 Activeroflumilast 0.5 mg oral tablet (8 sources)Phosphodiesterase 4 InhibitorStart: 09-11-2023 End: 45-75-0785cerf 1 tablet by mouth once dailyRoflumilast (Daliresp) 500 MCG tablet Indications: Chronic obstructive pulmonary disease, unspecified COPD type (CMS/HCC) Take 500 mcg by mouth Daily 30 tablet 5 09/11/2023 08/16/2024 Discontinued (Therapy completed) Completed/Discontinued Medications MedicationDrug Class(es)DatesSig (Normalized)Sig (Original)ALPRAZolam 0.25 mg oral tablet (5 sources)BenzodiazepineStart: 12-24-2023 End: 28-57-3417gnnu 1 tablet by mouth three times daily as needed for anxiety Alprazolam 0.25 mg Tablet Discontinued 0.25 MG PO Three times daily as needed for Anxiety 14 5 December 24, 2023 12:00am October 27, 2024 11:14amamoxicillin 875 mg / clavulanate 125 mg oral tablet (6 sources)Penicillin-class AntibacterialStart: 12-20-2023 End: 80-42-2452hbri 1 tablet by mouth twice dailyAmoxicillin-Pot Clavulanate 875-125 mg tablet Discontinued 1 TAB PO Twice daily December 192:00am December 24, 2023 8:43amBudesonide / formoterol (1 source)Corticosteroid, beta2-Adrenergic Agonist End: 18-39-5952ajxl 2 puff(s) by inhalation twice dailybudesonide-formoterol (SYMBICORT) 160-4.5 mcg/actuation inhaler Inhale 2 Puffs as instructed twice d aily. 0 07/01/2021 Discontinued (Discontinued by another Health Care Provider) Comment on above:Inhale 2 Puffs as instructed twice daily.docusate sodium 50 mg / sennosides, senior care 8.6 mg oral tablet (20 sources)Start: 05-25-2018 End: 35-23-5659nykt 2 tablets by mouth every twelve hours as neededsenna- docusate (SENOKOT-S) 8.6-50 mg per tablet Take 2 tablets by mouth twice daily as needed. 100 tablet 1 05/25/2018 11/17/2023 DiscontinuedComment on above:Take 2 tablets by mouth twice daily as needed.iv contrast (will be provided with radiology test) (20 sources)Start: 05-27-2024 End: 43-46-6682dv contrast (will be provided with radiology test) CT Chest W - Inject, intravenously, once for 1 dose.No IV access, insert saline lock prior to the beginning of sedation, infusion, injection of imaging exam. Discontinue saline lock post exam. If Pt. has a central line or IVAD, may access for adminis tration according to line specific nursing protocol. Once exam is complete flush line and de-accessaccording to line specific nursing protocol in the CT contrast administration guidelines link. 1 Each 05/27/2024 05/28/2024 Start: 02-16-2024 End: 84-18-7695jo contrast (will be provided with radiology test) CT Chest W - Inject, intravenously, once for 1 dose.No IV access, insert saline lock prior to the beginning of sedation, infusion, injection of imaging exam. Discontinue saline lock post exam. If Pt. has a central line or IVAD, may access for adminis tration according to line specific nursing protocol. Once exam is complete flush line and de-accessaccording to line specific nursing protocol in the CT contrast administration guidelines link. 1 Each 02/16/2024 02/17/2024 Active Start: 11-27-2023 End: 32-95-0475zt contrast (will be provided with radiology test) CT Chest W - Inject, intravenously, once for 1 dose.No IV access, insert saline lock prior to the beginning of sedation, infusion, injection of imaging exam. Discontinue saline lock post exam. If Pt. has a central line or IVAD, may access for adminis tration according to line specific nursing protocol. Once exam is complete flush line and de-accessaccording to line specific nursing protocol in the CT contrast administration guidelines link. 1 Each 11/27/2023 11/28/2023 Start: 37-75-0308xq contrast (will be provided with radiology test) Indications: Neoplasm [...] contrast administration guidelines link. 1 Each 06/08/2023 ActiveStart: 17-75-4865ok contrast (will be provided with radiology test) Indications: Neoplasm [...] administration guidelines link. 1 Each 0 06/08/2023 ActiveStart: 11-27-2022 End: 93-73-6596qz contrast (will be provided with radiology test) CT Chest W - Inject, intravenously, once for 1 dose.No IV access, insert saline lock prior to the beginning of sedation, infusion, injection of imaging exam. Discontinue saline lock post exam. If Pt. has a central line or IVAD, may access for adminis tration according to line specific nursing protocol. Once exam is complete flush line and de-accessaccording to line specific nursing protocol in the CT contrast administration guidelines link. 1 Each 0 11/27/2022 11/28/2022 Start: 07-01-2021 End: 47-41-4247di contrast (will be provided with radiology test) Indications: Non-small cell cancer of left lung (HCC) CT Chest W -Inject, intravenously, once for 1 dose.No IV access, insert saline lock prior to the beginning of sedation, infusion, injection of imaging exam. Discontinue saline lock post exam. IfPt. has a central line or IVAD, may access for administration according to line specific nursing protocol. Once exam is complete flush line and de-access according to line specific nursing protocol in the CT contrast administration guidelines link. 1 Each 0 07/01/2021 04/28/2022 Discontinued (Course of therapy completed)Start: 08-12-7722aa contrast (will be provided with radiology test) Indications: Non-small cell cancer of left lung (HCC) CT Chest W -Inject, intravenously, once for 1 dose.No IV access, insert saline lock prior to the beginning of sedation, infusion, injection of imaging exam. Discontinue saline lock post exam. IfPt. has a central line or IVAD, may access for administration according to line specific nursing protocol. Once exam is complete flush line and de-access according to line specific nursing protocol in the CT contrast administration guidelines link. 1 Each 0 07/01/2021 ActiveStart: 06-07-2020 End: 88-08-9873fg contrast (will be provided with radiology test) CT Chest W - Inject, intravenously, once for 1 dose.No IV access, insert saline lock prior to the beginning of sedation, infusion, injection of imaging exam. Discontinue saline lock post exam. If Pt. has a central line or IVAD, may access for adminis tration according to line specific nursing protocol. Once exam is complete flush line and de-accessaccording to line specific nursing protocol in the CT contrast administration guidelines link. 1 Each 0 06/07/2020 04/28/2022 Discontinued (Course of therapy completed)Start: 87-76-1895jl contrast (will be provided with radiology test) CT Chest W -Inject, intravenously, once for 1 dos e.No IV access, insert saline lock prior to the beginning of sedation, infusion, injection of imaging exam. Discontinue saline lock post exam. If Pt. has a central line or IVAD, may access for administration according to line specific nursing protocol. Once exam is complete flush line and de-accessaccording to line specific nursing protocol in the CT contrast administration guidelines link. 1 Each 0 06/07/2020 ActiveStart: 11-25-2018 End: 02-87-2826ir contrast (will be provided with radiology test) CT Chest W - Inject, intravenously, once for 1 dose.No IV access, insert saline lock prior to the beginning of sedation, infusion, injection of imaging exam. Discontinue saline lock post exam. If Pt. has a central line or IVAD, may access for adminis tration according to line specific nursing protocol. Once exam is complete flush line and de-accessaccording to line specific nursing protocol in the CT contrast administration guidelines link. 1 Each 0 11/25/2018 04/28/2022 Discontinued (Course of therapy completed)Start: 93-67-0465in contrast (will be provided with radiology test) CT Chest W -Inject, intravenously, once for 1 dos e.No IV access, insert saline lock prior to the beginning of sedation, infusion, injection of imaging exam. Discontinue saline lock post exam. If Pt. has a central line or IVAD, may access for administration according to line specific nursing protocol. Once exam is complete flush line and de-accessaccording to line specific nursing protocol in the CT contrast administration guidelines link. 1 Each 0 11/25/2018 ActiveComment on above:CT Chest W -Inject, intravenously, once for 1 dose.No IV access, insert saline lock prior to the beg inning of sedation, infusion, injection of imaging exam. Discontinue saline lock post exam. If Pt. has a central line or IVAD, may access for administration according to line specific nursing protocol. Once exam is complete flush line and de-access according to line specific nursing protocol in theCT contrast administration guidelines link.levoFLOXacin 500 mg oral tablet (19 sources)Quinolone AntimicrobialStart: 05-17-2023 End: 37-38-4977defk 1 tablet by mouth once dailyLevofloxacin 500 mg tablet Discontinued 500 MG PO Daily 5 May 17, 2023 1:00am September 29, 2023 1:20pmStart: 05-13-2023 End: 43-58-6535swdi 1 tablet by mouth every twenty-four hoursLevofloxacin 750 mg tablet Discontinued 750 MG PO Q24H May 13, 2023 1:00am May 17, 2023 9:52ampredniSONE 10 mg oral tablet (20 sources)Start: 12-24-2023 End: 41-68-4691dkbt 1 tablet by mouth three times dailyPrednisone 10 mg tablet Discontinued 10 MG PO As Directed December 24, 2023 12:00am February 23, 2024 3:35pm Take 1 tablet 3 times a day for 4 days then 1 tablet twice a day for 4 days then 1tablet daily for 4 days then resume your daily prednisone 5 mg daily.Start: 12-03-2023 End: 23-96-7522vsrp 1 tablet by mouth once dailyPrednisone 5 mg tablet Discontinued 5 MG PO Daily December 03, 2023 12:00am February 23, 2024 3:35pm Start: 11-16-2023 End: 60-24-3006weyp 4 tablets by mouth once daily, then take 2 tablets by mouth once daily, then take 1 tablet by mouth once daily, then take 0.5 tablet by mouth once dailyPrednisone 10 mg tablet Discontinued 10 MG PO Daily November 16, 2023 12:00am December 03, 2023 9:27am Take 4 tabs daily x 3 days, then 2 tabs daily x 3 days, then 1 tab daily x 3 days, then 1/2 tab daily until seen by Dr. Rasmussen.Start: 90-23-9724glebrmKYCH 10 mg tablet pack 5 tabs per day for 3 days, 4 tabs per day for 3 ays, 3 tabs perday for3 days, 2 tabs per day for 3 days, 1 tab a day for 3 days, 1/2 tab a day for 4 days Orally Once a day for 19 days 10/21/2023 ActiveStart: 09-18-2023 End: 07-48-9869gjse 1 tablet by mouth once dailypredniSONE (Deltasone) 10 MG tablet TAKE 1 TABLET BY MOUTH EVERY DAY FOR 30 DAYS 09/18/2023 03/01/2024 Discontinued (Therapy completed)Start: 05-17-2023 End: 98-53-1777hqai 1 tablet by mouth three times daily, then take 1 tablet by mouth twice daily, then take 1 tablet by mouth once dailyPrednisone 10 mg tablet Discontinued 10 MG PO As Directed May 17, 2023 9:52am September 29, 2023 1:21pm Take 1 tablet 3 times a day for 5 days then 1 tablet twice a day for 5 days then 1 tabletdailyStart: 05-13-2023 End: 02-09-3131cgwo 4 tablets by mouth once dailyPrednisone 10 mg tablet Discontinued 40 MG PO Daily May 13, 2023 1:00am May 17, 2023 9:52am Start: 05-13-2023 End: 14-09-8146dgaa 40 mg by mouth once dailyPrednisone Discontinued 40 MG PO Daily May 13, 2023 1:00am May 17, 2023 9:52amprednisone 10 mg as directed Orally as directed Activesodium chloride 30 mg/ml inhalation solution (20 sources)Start: 02-09-2024 End: 50-95-1905Tcadqj Chloride 3 % solution for nebulization Discontinued ML INHALATION February 09, 2024 12:00amNovember 2023 11:11amStart: 01-06-2022 End: 51-18-7833olwy 1 mL by inhalation twice dailySodium Chloride 3 % solution for nebulization Active 4 ML INHALATION Twice daily 240 June 16, 2024 1:02pm Use BID via nebulizer DX J44.9 COPD Complies with drug therapySodium Chloride 0.9 % as directed Inhalation Three times a day Activetheophylline 400 mg extended release oral tablet (20 sources)MethylxanthineStart: 02-09-2024 End: 53-55-6575fosa 1 tablet by mouth once dailyTheophylline 400 mg tablet extended release 24 hr Discontinued 400 MG PO Daily February 09, 2024 12:00am February 23, 2024 3:34pmStart: 75-02-8169rgun 1 capsule by mouth once daily, then take 1 capsule by mouth every twenty-four hoursTheophylline (Mi-24) 200 mg capsule,extended release 24hr Active 200 MG PO Daily September 29, 2023 12:00am Complies with drug therapyStart: 05-13-2023 End: 87-53-2018Bmscodamogsz 400 mg tablet extended release 24 hr Discontinued 300 MG PO Q24H May 13, 2023 1:00am September 29, 2023 1:21pmStart: 05-13-2023 End: 70-31-8186rfqm 300 mg by mouth every twenty-four hoursTheophylline Discontinued 300 MG PO Q24H May 13, 2023 1:00am September 29, 2023 1:21pm Start: 73-76-2414dhbr 1 capsule by mouth once daily, then take 2 capsules by mouth every twenty-four hoursTheophylline SR (MI-24) 400 mg 24 hr capsule Take 200 mg by mouth once daily. 12 02/02/2018 ActiveStart: 09-12-1188zolo 1 capsule by mouth once daily, then take 1 capsule by mouth every twenty-four hours Theophylline SR (MI-24) 400 mg 24 hr capsule Take 400 mg by mouth once daily. 12 02/02/2018 ActiveStart: 56-51-2990mdyp 1 capsule by mouth once dailyTHEO-24 200 mg 24 hr capsule Take 200 mg by mouth once daily. 12 02/02/2018 Active Comment on above:Take 200 mg by mouth once daily.Take 400 mg by mouth once daily. Problems Active Problems Problem ClassificationProblemDateDocumented DateEpisodic/ChronicAcute bronchitis (3 sources)Acute bronchitis, unspecified; Translations: [Acute bronchitis due to other specified organisms]Onset: 67-91-3350IooyghmaTkqjotmr reactions (1 source)Allergy status to other antibiotic agents status; Translations: [ALLERGY STATUS OTH ANTIBIOTIC AGENT]Onset: 09-23-3417GzzybxhgLgrhnra disorders (6 sources)Anxiety; Translations: [Anxiety disorder, unspecified]Onset: 610806-44-3928YbeztatYcdwyabwr infection; unspecified site (1 source)Pseudomonas (aeruginosa) (mallei) (pseudomallei) as the cause of diseases classified elsewhere; Translations: [PSEUDOMONAS CAUSE OF DZ CLASS ELSW]Onset: 76-03-8400JjnqhsaqHzoeqc of bronchus; lung (20 sources)Non-small cell lung cancer; Translations: [Malignant neoplasm of unspecified part of left bronchus or lung]Onset: 38-91-6229YznklaxEtzulj of bronchus; lung (6 sources)History of malignant neoplasm of thoracic cavity structure; Translations: [Personal history of other malignant neoplasm of bronchus and lung]Onset: 80-54-5341QriwvctvOtxzrw; other respiratory and intrathoracic (1 source)Malignant neoplasm of lower respiratory -68-6505VxwzxlvYjguizp dysrhythmias (12 sources)Tachycardia; Translations: [Tachycardia, unspecified]05-13-2023 EpisodicChronic obstructive pulmonary disease and bronchiectasis (20 sources)Centrilobular emphysema; Translations: [Centriacinar emphysema] Onset: 286258-55-9866FbosjvbQhchdjzo mellitus without complication (1 source)Hyperglycemia, unspecified; Translations: [HYPERGLYCEMIA UNSPECIFIED] Onset: 45-45-5970EyspirinA Codes: Adverse effects of medical drugs (1 source)Adverse effect of glucocorticoids and synthetic analogues, initial encounter; Translations: [ADVRS EFF GLUCOCORT SYN ANALOG INIT]Onset: 09-09-2022 EpisodicFluid and electrolyte disorders (1 source)Hypokalemia; Translations: [HYPOKALEMIA]Onset: 70-06-9514Tjqsoxcb Mycoses (2 sources)Pneumonia in aspergillosis; Translations: [Aspergillosis, unspecified]Onset: 27-44-9445JquhishmOwuihaywb of unspecified nature or uncertain behavior (8 sources)Neoplasm of lung ; Translations: [Neoplasm of unspecified behavior of respiratory system]Onset: 97-19-1277OeianavcRsdhfyrfsvd deficiencies (5 sources)Deficiency of macronutrients; Translations: [Unspecified severe protein-calorie malnutrition]98-66-7877CjdhllfPiaancqbedt deficiencies (20 sources)Cachexia; Translations: [Cachexia]Onset: 556190-14-0595 EpisodicOther aftercare (1 source)intermediate frame tender (current) use of systemic steroids; Translations: [FCI USE OF SYSTEMIC STEROIDS]Onset: 92-64-5220RqcafxazRchav aftercare (1 source)alf (current) use of inhaled steroids; Translations: [GRAZING AIDE USE OF INHALED STEROIDS]Onset: 88-47-3583HfiskvenOadqi aftercare (1 source)Other mcc (current) drug therapy; Translations: [OTH FCI CURRENT DRUG THERAPY]Onset: 85-51-3933GguohexkDxmnh ear and sense organ disorders (2 sources)Impacted cerumen in right ear; Translations: [Impacted cerumen, right ear]82-39-6220WgkezpjjItymo ear and sense organ disorders (2 sources)Impacted cerumen of bilateral ears; Translations: [Impacted cerumen, bilateral]98-95-4477HzpghgupAphzh lower respiratory disease (1 source)Solitary pulmonary nodule; Translations: [Solitary pulmonary nodule] Onset: 07-76-3227RixkrdquXbaiq lower respiratory disease (3 sources)Lung mass; Translations: [Other nonspecific abnormal finding of lung field]EpisodicOther lower respiratory disease (1 source)Nodule of lung; Translations: [Solitary pulmonary nodule]EpisodicOther lower respiratory disease (1 source)Personal history of pneumonia (recurrent); Translations: [PERSONAL HX OF PNEUMONIA RECURRENT]Onset: 09-56-1524SmewzxmcBixln lower respiratory disease (2 sources)Dyspnea on exertion; Translations: [Shortness of breath]05-13-2023 EpisodicOther lower respiratory disease (2 sources)Shortness of breath; Translations: [Shortness of breath]05-14-2023 EpisodicOther lower respiratory disease (5 sources)Cavitation of lung; Translations: [Other disorders of lung]02-22-2024 EpisodicOther lower respiratory disease (4 sources)Other disorders of lung; Translations: [Other diseases of lung, not elsewhere classified]Onset: 228221-08-6248SdrsnpztJdyns upper respiratory disease (1 source)Bronchiolar disease; Translations: [Other diseases of bronchus, not elsewhere classified]EpisodicPneumonia (except that caused by tuberculosis or sexually transmitted disease) (19 sources)Pneumonia; Translations: [Pneumonia, unspecified organism]Onset: 603829-52-2672YdjvxsgjUxalzchg codes; unclassified (7 sources)Obstructive sleep apnea syndrome; Translations: [Obstructive sleep apnea (adult) (pediatric)]63-32-5929ZwfprywJbaowvut codes; unclassified (10 sources)Obstructive sleep apnea (adult) (pediatric); Translations: [Obstructive sleep apnea (adult)(pediatric)]Onset: hronic Residual codes; unclassified (7 sources)Past history of procedure; Translations: [Other specified postprocedural states]66-66-4280IxxhnacwXqhatcc on above:left shoulder CC on 11/18/23Respiratory failure; insufficiency; arrest (adult) (20 sources)Chronic respiratory failure with hypoxia; Translations: [Chronic hypoxemic respiratory failure]Onset: 03-02-2018 Resolved: 411349-11-0575SvfpjkrEctzqoq on above:BiPAP with O2 2/m bleed intoRespiratory failure; insufficiency; arrest (adult) (15 sources)Acute respiratory failure with hypoxia; Translations: [Acute respiratory failure]Onset: 683213-24-5624HbclmxknTshemztke malignancies (13 sources)Secondary malignant neoplasm of lymph nodes of neck; Translations: [Secondary and unspecified malignant neoplasm of lymph nodes of head, face and neck]Onset: 617961-06-4648PsvqanpFyfzuldjw malignancies (2 sources)Secondary and unspecified malignant neoplasm of lymph nodes of head, face and neck; Translations: [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)]Onset: 80-87-2497OkksaqrJwxwicfrqr (except in labor) (1 source)Other specified sepsis; Translations: [OTHER SPECIFIED SEPSIS]Onset: 75-65-5347QvdllpoyGquddikfeqwk (2 sources)Chest pain, unspecified / R07.9(ICD-9)Onset: 42-31-8792Voiwcmgflggs (1 source)Other forms of dyspnea / R06.09(ICD-9)Onset: 19-76-8577Zkqnwiobicfu (4 sources)CONTACT W/AND (SUSP) EXPOS COVID-19; Translations: [CONTACT W/AND (SUSP) EXPOS COVID-19]Onset: 85-04-1245Almkenijvznt (1 source)COUGH, UNSPECIFIED; Translations: [COUGH, UNSPECIFIED]Onset: 65-65-4862Rzjfobf tract infections (1 source)Urinary tract infection, site not specified; Translations: [UTI SITE NOT SPECIFIED]Onset: 98-80-9127ItybvwclPkbmo infection (1 source)COVID-19; Translations: [COVID-19]Onset: 12-12-2021 Past or Other Problems Problem ClassificationProblemDateDocumented DateEpisodic/ChronicLymphadenitis (3 sources)Generalized enlarged lymph nodes; Translations: [Lymphadenopathy] Onset: 442127-86-9740ErmlcolzEfomgwzoptr chest pain (1 source)Chest pain, unspecified; Translations: [Chest pain, unspecified]Onset: 66-25-6582TbgpcxdgAivfm ear and sense organ disorders (8 sources)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; 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]Onset: 305172-81-1972AbheadqnOizjx injuries and conditions due to external causes (10 sources)Foreign body in left ear; Translations: [Foreign body in left ear, initial encounter]Onset: 720956-02-4700VbvptiyfJrbke lower respiratory disease (20 sources)Solitary nodule of lung; Translations: [Solitary pulmonary nodule] Onset: 606824-50-8482ErqtbtndGgbot lower respiratory disease (8 sources)Imaging of lung abnormal ; Translations: [Other nonspecific abnormal finding of lung field]Onset: 887884-90-1825AicrraidNzjqo lower respiratory disease (8 sources)Lung field abnormal; Translations: [Other nonspecific abnormal finding of lung field]Onset: 562183-20-2685PbumqjedHfrao screening for suspected conditions (not mental disorders or infectious disease) (9 sources)Gross pathology - abnormality; Translations: [Abnormal histological findings in specimens from other organs, systems and tissues]Onset: 05-23-2022 EpisodicOther upper respiratory disease (1 source)Nasal congestion; Translations: [NASAL CONGESTION]Onset: 04-11-2022 EpisodicScreening and history of mental health and substance abuse codes (13 sources)Personal history of nicotine dependence; Translations: [Ex-smoker] Onset: 780196-66-0373SisaywayRuudbavrdxad (1 source)CONTACT W/AND (SUSP) EXPOS COVID-19; Translations: [CONTACT W/AND (SUSP) EXPOS COVID-19]Onset: 04-08-2022 Results Test NameValueInterpretationReference RangeFacilityCNOVon 19-48-5258QIDHLnibcm Visit (RADTSA) CINTHIA GUERRERO ([id number]) 1960 F Date Time Provider Department 05/27/24 2:00 PM ABDI ISRAEL During your visit today, we recorded the following information about you: Temperature Pulse Respiration Blood pressure 97.8 degrees 108/minute 18/minute 147/76 Weight 42.6 kg Abdi Israel MD 06/28/2024 7:12 AM Addendum Radiation Oncology - Follow Up Note PATIENT NAME: CINTHIA Guerrero PATIENT DIAGNOSIS/PATIENT IDENTIFICATION: Ms. Guerrero is a 63-year-old woman with severe COPD, who is diagnosed with Stage IA3, mI2dC2S0, non-small cell lung cancer arising from a [...] to clinic today for routine follow-up approximately six years after the completion of her radiation treatments and four months since her last visit on 01/29/2024. In the interim, she underwent surveillance imaging with CT of the chest last week on 05/18/2024 noting evolving posttreatment change with no radiographic evidence of disease. She reports being diagnosed with pneumonia in March and treated successfully with steroids antibiotics. Today she reports continued COPD/emphysema requiring supplemental oxygen vuhsar-rhn-xyqoa at 2 L/min via nasal cannula. She denies any cough or chest pain or hemoptysis or difficulty swallowing or skin irritation in the treatment area. She endorses stable energy with fair appetite and hydration and stable weight. She follows with Dr. Rasmussen. ALLERGIES ALLERGIES No Known Allergies MEDICATIONS: Current Outpatient Medications: sodium chloride (NEBUSAL) 3 % nebulizer solution ferrous sulfate 325 mg (65 mg iron) tablet dextromethorphan-guaiFENesin (MUCINEX DM) 30-600 mg per tablet budesonide (PULMICORT) 1 mg/2 mL nebulizer solution montelukast (SINGULAIR) 10 mg tablet ipratropium/albuterol sulfate (DUONEB INHALATION) albuterol (PROVENTIL) 2.5 mg/0.5 mL nebulizar solution PEDIATRIC ASTHMA Cetirizine 10 mg cap Theophylline SR (MI-24) 400 mg 24 hr capsule doxycycline monohydrate (MONODOX) 100 mg capsule predniSONE 10 mg tablet pack iv contrast (will be provided with radiology test) PHYSICAL EXAM: GENERAL: middle-aged woman sitting in chair in no acute distress. VITALS: BP 147/76 Pulse 108 Temp 97.8 Resp 18 Wt 93 lb 14.7 oz (42.6kg) SpO2 95% KPS: 80 HEENT: NC/AT, anicteric sclera HEART: S1S2 LUNGS: non-labored breathing ABDOMEN: soft MUSCULOSKELETAL: no peripheral edema, moves all extremities. NEURO: no focal deficit; AANDO X3. RADIOLOGIC DATA: CT Chest (05/18/2024) IMPRESSION: 1. Decrease in size of the dense consolidative opacity in the posterior suprahilar region of the left upper lobe, likely representing evolving posttreatment change. 2. No CT evidence of metastatic disease in the chest. 3. Unchanged severe emphysema. ASSESSMENT AND PLAN: Ms. Guerrero is a 63-year-old woman with severe COPD, who is diagnosed with Stage IA3, hI7zC8S6, non-small cell lung cancer arising from a [...] in 5 fractions). Ms. Guerrero is stable clinically approximately 6 years out from the completion of her SBRT treatment to the chest with stable pulmonary function. She is without radiographic evidence of disease with recent CT of the chest from 05/18/2024 showing evolving posttreatment changes with no signs of recurrent disease. She will continue follow-up with Dr. Rasmussen for optimization of her pulmonary function and I will plan to see her back in [address] of the chest. The patient is aware to contact the clinic in the interim should any questions or concerns arise. Thank you for allowing us to participate in the care of this patient. Signed by: Abdi Israel MD I spent a total of 20 minutes on the date of the service which included preparing to see the patient, mham-tx-pkhv patient care, and counseling and educating the patient/family/caregiver. This document has been created with the use of voice recognition technology. It may contain inaccuracies, misspellings, inaccurate syntax or inappropriate word context that (more content not included)...NormalSum[facility] Health [facility] CREATININE BLDOrdered By: Etelvina Escalante on 12-80-5894Ymevkzuway [Mass/Vol]0.42 mg/dLLow0.58 - 0.96 mg/dLOhiohealth Grant Medical CenterGFR/1.73 sq M.predicted among non- blacks MDRD (S/P/Bld) [Vol rate/Area]111 mL/min/{1.73_m2}- [facility] Comment on above:Estimated Glomerular Filtration Rate (eGFR) is calculated using the 2020 CKD-EPI creatinine equation. This equation utilizes serum creatinine, sex, and age as parameters. The creatinine assay has traceable calibration to isotope dilution-mass spectrometry. Refer to KDIGO guidelines for clinical inte rpretation. In patients with unstable renal function, e.g. those with acute kidney injury, the eGFRmay not accurately reflect actual GFR.Interpretation and review of laboratory resultsAbnormalCchildren's hospital of columbusand Mansfield HospitalCREATININE BLDon 56-10-6110Gepotfmcfm [Mass/Vol]0.42 mg/dLLow0.58-0.96[facility] on above:Order Comment: Specimen Type: BLOOD SPECIMENOrdering Facility: [facility] Address:[address] [place], [place] [id number] By: #### CRET1 ####[facility] LABCLIA [id number] [place], [place] [address]Gmtcmddjjb and Glomerular filtration rate.predicted panel (S/P/Bld)111 mL/min/1.73m???Normal>=60[facility] on above:Order Comment: Specimen Type: BLOOD SPECIMENOrdering Facility: [facility] Address:[address] [place], [place] [address]Result Comment: Estimated Glomerular Filtration Rate (eGFR) is calculated using the 2020 CKD-EPI creatinine equation. This equation utilizes serum creatinine, sex, and age as parameters. The creatinine assay has traceable calibration to isotope dilution-mass spectrometry. Refer to KDIGO guidelines for clinical interpretation. In patients with unstable renal function, e.g. those with acute kidney injury, the eGFR may not accurately reflect actual GFR.Performed By: #### CRET1 ####[facility] LABCLIA [id number] [place], [place] [address]JJ CHEST W IVCONon 01-53-7231RA CHEST W IVCON* * *Final Report* * * DATE OF EXAM: May 18 2024 10:35AM [facility] 0539 - CT CHEST W IVCON / PROCEDURE REASON: Neoplasm of lung * * * * Physician Interpretation * * * * RESULT: EXAMINATION: CHEST CT WITH CONTRAST CLINICAL HISTORY: Neoplasm of lung Technique: Spiral CT acquisition of the chest from the thoracic inlet to the upper abdomen following IV contrast. MQ: CTCW_6 Contrast: 50 mL Omnipaque [address] Radiation dose: Integrated Dose-length product (DLP) for this visit = 123 mGy*cm CT Dose Reduction Employed: Automated exposure control (AEC) Comparison: Multiple previous chest CTs, the most recent dated 01/18/2024 RESULT: Limitations: None. Lines, tubes, and devices: None. Lung parenchyma and airways: 3.7 x 3.2 cm dense consolidative opacity in the posterior suprahilar region of the left upper lobe on series 2 image 44 has decreased in size from 4.5 x 3.6 cm. The previously noted fluid-filled cavitary space superior to this opacity at the left apex has decreased, the fluid area measures 1.2 x 0.8 cm on series 2 image 24 compared to 2.2 x 1.5 cm previously. Severe emphysema is unchanged. Multiple bullae at the left lung apex are stable. Chronic appearing near complete atelectasis of the right middle lobe is unchanged. Bandlike scarring is again noted in the lingula. No new pulmonary nodules or masses are identified. Pleural space: No pleural effusion. No pleural thickening. Lower neck, lymph nodes, and mediastinum: The imaged thyroid gland is normal. No lymphadenopathy in the supraclavicular, axillary, mediastinal, or hilar regions. Heart, pericardium, and thoracic vessels: The thoracic aorta and main pulmonary artery are normal in caliber. The cardiac chambers are normal in size. Mild coronary artery atherosclerotic calcifications are noted, although the study is not optimized for coronary assessment. No pericardial effusion or thickening. Bones and soft tissues: No destructive bone lesion. Chest wall is unremarkable. Upper abdomen: The included images of the upper abdomen are unremarkable. Localizer images: No additional findings. IMPRESSION: 1. Decrease in size of the dense consolidative opacity in the posterior suprahilar region of the left upper lobe, likely representing evolving posttreatment change. 2. No CT evidence of metastatic disease in the chest. 3. Unchanged severe emphysema. Transcribe Date/Time: May 18 2024 1:02P Dictated by: BRI WORTHY MD This examination was interpreted and the report reviewed and electronically signed by: BRI WORTHY MD on May 18 2024 1:15PM EST Thank you for allowing us to participate in the care of your patient. Should there be any questions regarding this interpretation, please call [phone]. If you are unable to reach us at the number above, please feel free to contact [facility] eRadiology at [phone]. [id number] [facility] City Hospital Chest W contrast [place] 73-97-5395ZCNHSKYZZG: 1. Decrease in size of the dense consolidative opacity in the posterior suprahilar region of the left upper lobe, likely representing evolving posttreatment change. 2. No CT evidence of metastatic disease in the chest. 3. Unchanged severe emphysema. Transcribe Date/Time: May 18 2024 1:02P Dictated by: BRI WORTHY MD This examination was interpreted and the report reviewed and electronically signed by: BRI WORTHY MD on May 18 2024 1:15PM EST Thank you for allowing us to participate in the care of your patient. Should there be any questions regarding this interpretation, please call [phone]. If you are unable to reach us at the number above, please feel free to contact [facility] at [phone].DIVISION OF RADIOLOGY* * *Final Report* * * DATE OF EXAM: May 18 2024 10:35AM [facility] 0539 - CT CHEST W IVCON / PROCEDURE REASON: Neoplasm of lung * * * * Physician Interpretation * * * * RESULT: EXAMINATION: CHEST CT WITH CONTRAST CLINICAL HISTORY: Neoplasm of lung Technique: Spiral CT acquisition of the chest from the thoracic inlet to the upper abdomen following IV contrast. MQ: CTCW_6 Contrast: 50 mL Omnipaque [address] Radiation dose: Integrated Dose-length product (DLP) for this visit = 123 mGy*cm CT Dose Reduction Employed: Automated exposure control (AEC) Comparison: Multiple previous chest CTs, the most recent dated 01/18/2024 RESULT: Limitations: None. Lines, tubes, and devices: None. Lung parenchyma and airways: 3.7 x 3.2 cm dense consolidative opacity in the posterior suprahilar region of the left upper lobe on series 2 image 44 has decreased in size from 4.5 x 3.6 cm. The previously noted fluid-filled cavitary space superior to this opacity at the left apex has decreased, the fluid area measures 1.2 x 0.8 cm on series 2 image 24 compared to 2.2 x 1.5 cm previously. Severe emphysema is unchanged. Multiple bullae at the left lung apex are stable. Chronic appearing near complete atelectasis of the right middle lobe is unchanged. Bandlike scarring is again noted in the lingula. No new pulmonary nodules or masses are identified. Pleural space: No pleural effusion. No pleural thickening. Lower neck, lymph nodes, and mediastinum: The imaged thyroid gland is normal. No lymphadenopathy in the supraclavicular, axillary, mediastinal, or hilar regions. Heart, pericardium, and thoracic vessels: The thoracic aorta and main pulmonary artery are normal in caliber. The cardiac chambers are normal in size. Mild coronary artery atherosclerotic calcifications are noted, although the study is not optimized for coronary assessment. No pericardial effusion or thickening. Bones and soft tissues: No destructive bone lesion. Chest wall is unremarkable. Upper abdomen: The included images of the upper abdomen are unremarkable. Localizer images: No additional findings. DIVISION OF RADIOLOGYProvider, [facility] [place] - 05/18/2024 * * *Final Report* * * DATE OF EXAM: May 18 2024 10:35AM [facility] 0539 - CT CHEST W IVCON / PROCEDURE REASON: Neoplasm of lung * * * * Physician Interpretation * * * * RESULT: EXAMINATION: CHEST CT WITH CONTRAST CLINICAL HISTORY: Neoplasm of lung Technique: Spiral CT acquisition of the chest from the thoracic inlet to the upper abdomen following IV contrast. MQ: CTCW_6 Contrast: 50 mL Omnipaque [address] Radiation dose: Integrated Dose-length product (DLP) for this visit = 123 mGy*cm CT Dose Reduction Employed: Automated exposure control (AEC) Comparison: Multiple previous chest CTs, the most recent dated 01/18/2024 RESULT: Limitations: None. Lines, tubes, and devices: None. Lung parenchyma and airways: 3.7 x 3.2 cm dense consolidative opacity in the posterior suprahilar region of the left upper lobe on series 2 image 44 has decreased in size from 4.5 x 3.6 cm. The previously noted fluid-filled cavitary space superior to this opacity at the left apex has decreased, the fluid area measures 1.2 x 0.8 cm on series 2 image 24 compared to 2.2 x 1.5 cm previously. Severe emphysema is unchanged. Multiple bullae at the left lung apex are stable. Chronic appearing near complete atelectasis of the right middle lobe is unchanged. Bandlike scarring is again noted in the lingula. No new pulmonary nodules or masses are identified. Pleural space: No pleural effusion. No pleural thickening. Lower neck, lymph nodes, and mediastinum: The imaged thyroid gland is normal. No lymphadenopathy in the supraclavicular, axillary, mediastinal, or hilar regions. Heart, pericardium, and thoracic vessels: The thoracic aorta and main pulmonary artery are normal in caliber. The cardiac chambers are normal in size. Mild coronary artery atherosclerotic calcifications are noted, although the study is not optimized for coronary assessment. No pericardial effusion or thickening. Bones and soft tissues: No destructive bone lesion. Chest wall is unremarkable. Upper abdomen: The included images of the upper abdomen are unremarkable. Localizer images: No additional findings. IMPRESSION IMPRESSION: 1. Decrease in size of the dense consolidative opacity in the posterior suprahilar region of the left upper lobe, likely representing evolving posttreatment change. 2. No CT evidence of metastatic disease in the chest. 3. Unchanged severe emphysema. Transcribe Date/Time: May 18 2024 1:02P Dictated by: BRI WORTHY MD This examination was interpreted and the report reviewed and electronically signed by: BRI WORTHY MD on May 18 2024 1:15PM EST Thank you for allowing us to participate in the care of your patient. Should there be any questions regarding this interpretation, please call [phone]. If you are unable to reach us at the number above, please feel free to contact [facility] eRadiology at [phone]. [facility] CenterRadiology Study observation (narrative)[facility] Chest W contrast IVOrdered By: Ccf Provider on 15-88-6659Pialuflfn ClinicX-ray report Ordered By: Wong Byrd on 43-85-1429Jwksy reportRIVERVIEW HEALTH IN[facility] [place] [address] [place] [address] XRay Report Signed Patient: Cinthia Guerrero MR#: [id number] : 1960 Acct:[id number] Age/Sex: 63 / F ADM Date: 4 Loc: XD Room: Type: [facility] Attending Dr: Denver Rasmussen MD Copies to: [...] Wong Byrd M.D.02/26/2024 6:00 PM Dictation Location: RADIO-Oris4-01 Transcribed By: MARCELLE 02/26/24 1800 Dictated By: Wong Byrd DO 02/26/241754 Signed By: 02/26/[address] [facility] HospitalXR chest 2V*on 16-36-4291DQ chest 2V*[facility] [place] [address] XRay Report Signed Patient: Cinthia Guerrero MR#: [id number] : 1960 Acct:[id number] Age/Sex: 63 / F ADM Date: 02/26/24 Loc: XD Room: Type: [facility] Attending Dr: Denver Rasmussen MD Copies to: [...] Wong Byrd M.D.02/26/2024 6:00 PM Dictation Location: RADIOConvioPC-01 Transcribed By: MARCELLE 02/26/24 1800 Dictated By: CarsonWong Dionne DO 02/26/24 1755 Signed By: 02/26/24 1800[facility] Physician GroupCNPNon [id number] (RADTSA) CESARCINTHIA Liborio ([id number]) 1960 F Date Time Provider Department 02/17/24 ABDI ISRAEL During your visit today, we recorded the following information about you: Julisa Pressley LPN 02/17/2024 8:58 AM Signed Emily: Please send reports and images to Dr. Rasmussen as requested below per Dr. Israel. Thanks LUCIE Dolan Saju, MD sent to Julisa Pressley LPN; Silvia Jha, LUCIE Please send recent imaging from the past two years (images and report) as well as my notes to Dr. Block as well as the procedure note and pathology results from her bronch/biopsy from 04/2022 (including any cultures/stains). Thanks! Abdi Sears Kendal Ophelia 02/17/2024 10:18 AM Signed Records faxed to Dr. Rasmussen. Requested images be pushed to [facility]. Allergies As of Date: 02/17/2024 (No Known [...] (MONODOX) 100 mg capsule 1 capsule. - dextromethorphan-guaiFENesin (MUCINEX DM) 30-600 mg per tablet [...] 12/07/2023 Encounter Status:Closed by JULISA PRESSLEY on 02/17/24[facility] [id number] Visit (RADTSA) CINTHIA GUERRERO ([id number]) 1960 F Date Time Provider Department 01/29/24 [...] COPD, who is diagnosed with Stage IA3, [id number], non-small cell lung cancer arising from a [...] continues on supplemental oxygen via nasal cannula slverp-pzg-bkmjh at 2 L/min and continues on Pulmicort [...] neoplasm. ABDOMEN/PELVIS: * Hypermet (more content not included)...[facility] CHEST W IVCONon 01-47-6382WN CHEST W IVCON* * *Final Report* * * DATE OF EXAM: Jan 18 2024 11:33AM [facility] 0539 - CT CHEST W [...] Lung parenchyma and airways: There is severe centrilobular/panlobular emphysema. There is stable collapse of the [...] any questions regarding this interpretation, please call [phone]. If you are unable to reach us at the number above, please feel free to contact [facility] eRadiology at [phone]. [id number] Liverpool City Hospital Chest W contrast Angelita 32-51-7350PIHGSMJTTS: 1. Left suprahilar consolidative opacity, progressed from [...] any questions regarding this interpretation, please call [phone]. If you are unable to reach us at the number above, please feel free to contact [facility] at [phone].DIVISION OF RADIOLOGY* * *Final Report* * * DATE OF EXAM: Jan 18 2024 11:33AM [facility] 0539 - CT CHEST W [...] Lung parenchyma and airways: There is severe centrilobular/panlobular emphysema. There is stable collapse of the [...] Localizer images: No additional findings. DIVISION OF RADIOLOGYProvider, [facility] [place] - 01/18/2024 * * *Final Report* * * DATE OF EXAM: Jan 18 2024 11:33AM [facility] 0539 - CT CHEST W [...] Lung parenchyma and airways: There is severe centrilobular/panlobular emphysema. There is stable collapse of the [...] any questions regarding this interpretation, please call [phone]. If you are unable to reach us at the number above, please feel free to contact [facility] eRadiology at [phone]. [facility] CenterRadiology Study observation (narrative)[facility] Chest W contrast IVOrdered By: Ccf Provider on 24-19-6052Lbmvvoaav ClinicCNPNon [id number] (NCCAP) CINTHIA GUERRERO ([id number]) 1960 F Date Time Provider Department 12/24/23 ABDI ISRAEL During your visit today, we recorded the following information about you: Rodney Rinaldi 12/24/2023 1:59 PM Signed Cinthia Guerrero --Omaira was dc'd from [facility]-She hasn't called in to reschedule her appt's. [...] Date Reviewed: 11/18/2023 Reviewed by: Khushboo Patel, LUCIE - Fully Assessed Reason for Visit: Appointment Confirmation [3023] Prescriptions as of 12/28/2023 - predniSONE 10 [...] 12/07/2023 Encounter Status:Closed by RODNEY RINALDI on 12/28/23NoalCOhioHealth [facility] Metabolic Panelon 05-09-0434Dhekwumpfo Clr Calc Azpwbmzb93.01 NormalThe Atrium Health Pineville Physician GroupComment on above:Result Comment: PERFORMED BY: [place] [id number] PATHOLOGIST TALENT RECRUITER JASMEET LIN M.D.Performed By: #### CMP, CBC, HS TROP, TSH3 wRFLX #### [address] [address] USAGFR/1.73 sq M.predicted MDRD (S/P/Bld) [Vol rate/Area] mL/min/{1.73_m2}NormalThe [facility]rium Health Pineville Physician GroupComment on above:Performed By: #### CMP, CBC, HS TROP, TSH3 wRFLX #### [address] [address] USACalcium [Mass/volume] in Serum or PlasmaOrdered By: Cassandra Andersen on 03-28-1138Ikqcoak [Mass/Vol]9.4 mg/dLNormal8.6-10.3FSt. Mary's Medical CenterComment on above:Performed By: #### CMP, CBC, HS TROP, TSH3 wRFLX #### [facility] [address] [place] [address] USACalcium [Mass/Vol]Calcium [Mass/volume] in Serum or Plasma 8.6-10.3FSt. Mary's Medical CenterCarbon dioxide, total [Moles/volume] in Serum or PlasmaOrdered By: Cassandra Andersen on 39-73-7377CN7 [Moles/Vol]44.4 mmol/LHigh21.0-31.0[facility]. Mary HospitalComment on above:Performed By: #### CMP, CBC, HS TROP, TSH3 wRFLX #### [facility] [address] [place] [address] USACO2 [Moles/Vol]Carbon dioxide, total [Moles/volume] in Serum or DildxnWcno41.0-31.0[facility] Mary HospitalChloride [Moles/volume] in Serum or PlasmaOrdered By: Cassandra Andersen on 05-83-6504Ljwyjplf [Moles/Vol]92 mmol/MDfi34-945TwmnfxljwMount St. Mary HospitalComment on above: Performed By: #### CMP, CBC, HS TROP, TSH3 wRFLX #### [facility] [address] [place] [address] USAChloride [Moles/Vol]Chloride [Moles/volume] in Serum or TvqowxUek45-763AulatbpjsMount St. Mary HospitalCreatinine [Mass/volume] in Serum or PlasmaOrdered By: Cassandra Andersen on 32-23-5611Svipeznfaz [Mass/Vol]0.40 mg/dLLow0.60-1.20[facility] St. Mary HospitalComment on above:Performed By: #### CMP, CBC, HS TROP, TSH3 wRFLX #### [place] [id number] USACreatinine [Mass/Vol]Creatinine [Mass/volume] in Serum or PlasmaLow0.60-1.20Mount St. Mary HospitalGlucose [Mass/volume] in Serum or PlasmaOrdered By: Cassandra Andersen on 04-51-5858Zacqkjp [Mass/Vol]80 mg/dL Zjybay26-741KbhjoepxbMount St. Mary HospitalComment on above:ADA recommended reference rangeRandom Glucose Reference Range is dependent on time and content of last meal. Glucose of more than 200 mg/dL in a nonstressed, ambulatory subject supports the diagnosisof Diabetes Mellitus.Result Comment: Random Glucose Reference Range is dependent on time and content of last meal. Glucose of more than 200 mg/dL in a nonstressed, ambulatory subject supports the diagnosis of Diabetes Mellitus. ADA recommended reference rangePerformed By: #### CMP, CBC, HS TROP, TSH3 wRFLX #### [facility] [address] [place] [address] USAGlucose [Mass/Vol]Glucose [Mass/volume] in Serum or Plasma 70-100Mount St. Mary HospitalComment on above:ADA recommended reference rangeRandom Glucose Reference Range is dependent on time and content of last meal. Glucose of more than 200 mg/dL in a nonstressed, ambulatory subject supports the diagnosisof Diabetes Mellitus.No Panel InformationOrdered By: Cassandra Andersen on 04-08-3394Sjabvlnxj GFR (CKD-EPI)> 60.0 mL/MinMount St. Mary HospitalPharmacy Creatinine Clearance (Chem90.01Mount St. Mary HospitalPotassium [Moles/volume] in Serum or PlasmaOrdered By: Cassandra Andersen on 04-91-9065Idkceilmc [Moles/Vol]4.5 mmol/LNormal3.5-5.1FSt. Mary's Medical CenterComment on above:Performed By: #### CMP, CBC, HS TROP, TSH3 wRFLX #### [facility] [address] [place] [address] USAPotassium [Moles/Vol]Potassium [Moles/volume] in Serum or Plasma3.5-5.1FTriHealth McCullough-Hyde Memorial Hospitalerum or plasma anion gap determinationOrdered By: Cassandra Andersen on 78-55-0242Qkrrn gap [Moles/Vol]8.1 mmol/LNormal6.0-15.0[facility]. Mary HospitalComment on above:Performed By: #### CMP, CBC, HS TROP, TSH3 wRFLX #### [facility] [address] [place] [address] USAAnion gap [Moles/Vol]Serum or plasma anion gap determination6.0-15.0Sheltering Arms Hospitalodium [Moles/volume] in Serum or PlasmaOrdered By: Cassandra Andersen on 77-91-5190Qaefds [Moles/Vol]140 mmol/WQuhflf723-174AmmdybizgMount St. Mary HospitalComment on above:Performed By: #### CMP, CBC, HS TROP, TSH3 wRFLX #### [facility] [address] [place] [address] USASodium [Moles/Vol]Sodium [Moles/volume] in Serum or Plasma 136-145Mount St. Mary HospitalUrea nitrogen [Mass/volume] in Serum or PlasmaOrdered By: Cassandra Andersen on 62-70-5363Tpql nitrogen [Mass/Vol]12 mg/dL Normal7-25Mount St. Mary HospitalComment on above:Performed By: #### CMP, CBC, HS TROP, TSH3 wRFLX #### [facility] [address] [place] [address] USAUrea nitrogen [Mass/Vol]Urea nitrogen [Mass/volume] in Serum or Plasma[address] [place], [place] [address]Aerobic Cultureon 12-22-2023 Aerobic CultureORGANISM: Milagros albicans (O:CANALB) Quantity of Growth Light Growth Gram Stain Result 2+ White Blood Cells 2+ Epithelial Cells 3+ Gram Positive Coccobacilli 2+ Gram Positive Cocci in Pairs PERFORMED BY: [place] [address] PATHOLOGIST TALENT RECRUITER JASMEET LIN M.D.[facility] Physician GroupComment on above:Performed By: #### CMP, CBC, HS TROP, TSH3 wRFLX #### [facility] [address] [place] [address] USABacteria identified Aer cx Nom (Unsp spec)Ordered By: Denver Rasmussen on 60-05-6793Atocgua CultureAbnormalMount St. Mary HospitalGram Stainon 74-40-7450Ebyfswoedkm observation Gram stain Nom (Unsp spec)Gram Stain Result 2+ White Blood Cells 2+ Epithelial Cells 3+ Gram Positive Coccobacilli 2+ Gram Positive Cocci in Pairs PERFORMED BY: [address] [address] PATHOLOGIST TALENT RECRUITER JASMEET LIN M.D.[facility] Physician GroupComment on above:Performed By: #### CMP, CBC, HS TROP, TSH3 wRFLX #### [facility] [address] [place] [address] USAGram stain for investigation of transfusion reaction Ordered By: Denver Rasmussen on 76-50-1685Pbenuqnlums observation Gram stain Nom (Unsp spec)Yeast Like OrganismAbnormalMount St. Mary HospitalGram stain microscopyOrdered By: Denver Rasmussen on 63-95-5263Yurxbhhglat observation Gram stain Nom (Unsp spec)Gram stain microscopyMount St. Mary HospitalWound methicillin resistant Staphylococcus aureus (MRSA) culture Ordered By: Denver Rasmussen on 09-13-9958TOUN isol Org specific cx Ql (Unsp spec)Wound methicillin resistant Staphylococcus aureus (MRSA) cultureMount St. Mary HospitalAlanine aminotransferase [Enzymatic activity/volume] in Serum or PlasmaOrdered By: Mg Vaughn on 96-30-8063HTJ [Catalytic activity/Vol]25 U/LNormal7[address] Ward StreetComment on above: Performed By: #### CBC, CMP #### [facility] [address] [place] [address] USAALT [Catalytic activity/Vol]Alanine aminotransferase [Enzymatic activity/volume] in Serum or PlasmaMount St. Mary HospitalAlbumin [Mass/volume] in Serum or Plasma by Bromocresol green (BCG) dye binding methoOrdered By: Mg Vaughn on 38-92-3263Skukdol BCG dye [Mass/Vol] 3.9 g/dL3.5-5.7FSt. Mary's Medical CenterAlbumin BCG dye [Mass/Vol] Albumin [Mass/volume] in Serum or Plasma by Bromocresol green (BCG) dye binding metho3.5-5.7FSt. Mary's Medical CenterAlkaline phosphatase [Enzymatic activity/volume] in Serum or PlasmaOrdered By: Mg Vaughn on 78-09-5223KRL [Catalytic activity/Vol]73 U/TFfhtgx84-879Rfngxodbu[address] Comment on above:Performed By: #### CBC, CMP #### [facility] [address] [place] [address] USAALP [Catalytic activity/Vol]Alkaline phosphatase [Enzymatic activity/volume] in Serum or Lcizgx84-255WkmhxhfszMount St. Mary HospitalAspartate aminotransferase [Enzymatic activity/volume] in Serum or Plasma Ordered By: Mg Vaughn on 78-00-4825EVB [Catalytic activity/Vol]21 U/LNormal 13-39Mount St. Mary HospitalComment on above:Performed By: #### CBC, CMP #### [facility] [address] [place] [address] USAAST [Catalytic activity/Vol]Aspartate aminotransferase [Enzymatic activity/volume] in Serum or Ywurvv19-93QefsewkljMount St. Mary HospitalAutomated basophil %Ordered By: Mg Vaughn on 03-16-4865Gtqiufewa/100 WBC (Bld)0.5 %Normal.Mount St. Mary HospitalComment on above:Performed By: #### CBC, CMP #### [facility] [address] [place] [address] USAAutomated basophil countOrdered By: Mg Vaughn on 38-09-8150Updairywv (Bld) [#/Vol]0.0 10*3/uLNormal0.0-0.2FSt. Mary's Medical CenterComment on above:Result Comment: PERFORMED BY: [facility] [address] [place] [address] PATHOLOGIST TALENT RECRUITER JASMEET LIN M.D.Performed By: #### CBC, CMP #### [facility] [address] [place] [address] USAAutomated blood monocyte countOrdered By: Mg Vaughn on 39-92-1364Rxcfxeeow (Bld) [#/Vol]0.8 10*3/uLNormal0.0-0.8Mount St. Mary HospitalComment on above:Performed By: #### CBC, CMP #### [facility] [address] [place] [address] USAAutomated eosinophil %Ordered By: gM Vaughn on 08-83-0405Apdgxjjrcas/100 WBC (Bld)2.0 %Normal.[facility] Comment on above:Performed By: #### CBC, CMP #### [facility] [address] [place] [address] USAAutomated eosinophil countOrdered By: Mg Vaughn on 38-76-2828Pcxtaijihsx (Bld) [#/Vol]0.1 10*3/uLNormal0.0-0.45Mount St. Mary HospitalComment on above:Performed By: #### CBC, CMP #### [facility] [address] [place] [address] USAAutomated monocyte %Ordered By: Mg Vaughn on 98-06-2560Ypfwlvgay/100 WBC (Bld)10.7 %Normal.[facility] Comment on above:Performed By: #### CBC, CMP #### [place] [address] USAAutomated neutrophil %Ordered By: Mg Vaughn on 35-90-9680Egyngmgeoum/100 WBC (Bld)58.3 %Normal.Mount St. Mary HospitalComment on above:Performed By: #### CBC, CMP #### [place] [address] USABasophils Auto (Bld) [#/Vol]Ordered By: Mg Vaughn on 00-64-8191Gguwcttxw (Bld) [#/Vol]Automated basophil count0.0-0.2FSt. Mary's Medical CenterBasophils/100 WBC Auto (Bld)Ordered By: Mg Vaughn on 00-05-8247Xzbfivlim/100 WBC (Bld)Automated basophil %.[facility] St. Mary HospitalBilirubin.total [Mass/volume] in Serum or PlasmaOrdered By: Mg Vaughn on 59-99-6805Jhskfmhav [Mass/Vol]0.4 mg/dLNormal0.3-1.0Mount St. Mary HospitalComment on above:Performed By: #### CBC, CMP #### [place] [address] USABilirubin [Mass/Vol]Bilirubin.total [Mass/volume] in Serum or Plasma0.3-1.0[facility]. Mary HospitalBioFire Not Detectedon 03-08-0511HcxFbbo Not DetectedNot detectedNormalNot DetecteThe [facility] Physician [facility] HospitalComment on above:Result Comment: This is a duplicate RP2.1 COVID (PCR) result to be used for statistical tracking purpose only. PERFORMED BY: [place] [address] PATHOLOGIST TALENT RECRUITER JASMEET LIN M.D.Performed By: #### RESP PANEL UPP., BIOFIRECOVNOTDE #### [place] [address] USACOVID-19 Detected/Not DetectedOrdered By: Mg Vaughn on 28-16-5125TEBX-CoV-2 (COVID-19) RNA KRUNAL+non-probe Ql (Nph)Not detectedNot DetecteFSt. Mary's Medical CenterComment on above:This is a duplicate RP2.1 COVID (PCR) result to be used for statistical tracking purpose only. Complete Blood Count Auto Diffon 65-44-9200Oqsl Corpuscular HGB Conc32.3 g/dL Hiyxuj74.0-35.0The [facility] Physician GroupComment on above:Performed By: #### CBC, CMP #### [place] [address] USANRBC%0.1 /100{WBC}Normal0-0.5The [facility] Physician [facility] Comment on above:Performed By: #### CBC, CMP #### [place] [address] USAComprehensive Metabolic Panelon 40-92-1341Cpqhafp [Mass/Vol]3.9 g/dLNormal3.5-5.7The [facility] Physician GroupComment on above: Performed By: #### CBC, CMP #### [place] [address] USAAnion gap [Moles/Vol]Not performedNormal6.0-15.0The [facility] York HospitalComment on above:Performed By: #### CBC, CMP #### [place] [address] USACalcium [Mass/Vol]9.6 mg/dLNormal8.6-10.3The [facility] Physician GroupComment on above:Performed By: #### CBC, CMP #### [facility] [address] [place] [address] USAChloride [Moles/Vol]87 mmol/PQnf50-979Fdj [facility] Physician GroupComment on above:Performed By: #### CBC, CMP #### [facility] [address] [place] [address] USACO2 [Moles/Vol]mmol/LHigh21.0-31.0The [facility] Physician GroupComment on above:Performed By: #### CBC, CMP #### [facility] [address] [place] [address] USACreatinine [Mass/Vol]0.42 mg/dLLow0.60-1.20The [facility] Physician GroupComment on above:Performed By: #### CBC, CMP #### [facility] [address] [place] [address] USACreatinine Clr Calc Mvtbrjzs26.29NormalThe [facility] Physician GroupComment on above:Result Comment: PERFORMED BY: [place] [address] PATHOLOGIST TALENT RECRUITER JASMEET LIN M.D.Performed By: #### CBC, CMP #### [place] [address] USAGFR/1.73 sq M.predicted MDRD (S/P/Bld) [Vol rate/Area] mL/min/{1.73_m2}NormalThe [facility] Physician GroupComment on above:Performed By: #### CBC, CMP #### [facility] [address] [place] [address] USAGlucose [Mass/Vol]81 mg/gWBrpbkl42-215Jzp [facility] Physician GroupComment on above:Result Comment: Random Glucose Reference Range is dependent on time and content of last meal. Glucose of more than 200 mg/dL in a nonstressed, ambulatory subject supports the diagnosis of Diabetes Mellitus. ADA recommended reference rangePerformed By: #### CBC, CMP #### [facility] [address] [place] [address] USAPotassium [Moles/Vol]3.9 mmol/LNormal3.5-5.1The [facility] Physician [facility] HospitalComment on above:Performed By: #### CBC, CMP #### [facility] [address] [place] [address] USASodium [Moles/Vol]139 mmol/HPeiiys408-137Ern [facility] Physician [facility] HospitalComment on above:Performed By: #### CBC, CMP #### [facility] [address] [place] [address] USAUrea nitrogen [Mass/Vol]14 mg/dLNormal7-25The [facility] Physician [facility] HospitalComment on above:Performed By: #### CBC, CMP #### [facility] [address] [place] [address] USAEosinophils Auto (Bld) [#/Vol]Ordered By: Mg Vaughn on 63-39-0325Ptxhshrexfe (Bld) [#/Vol]Automated eosinophil count0.0-0.[address] [facility] HospitalEosinophils/100 WBC Auto (Bld)Ordered By: Mg Vaughn on 84-32-4042Usjvewpsjqw/100 WBC (Bld)Automated eosinophil %. [facility] Mary HospitalErythrocyte distribution width Auto (RBC) [Ratio]Ordered By: Mg Vaughn on 72-37-8190Wvotakohxiq distribution width (RBC) [Ratio]Erythrocyte distribution width [Ratio] by Automated count11.9-15.[address] Mary HospitalErythrocyte distribution width [Ratio] by Automated countOrdered By: Mg Vaughn on 18-11-1299Lskoiehrnym distribution width (RBC) [Ratio]14.3 %Iliwdi94.9-15.3FSt. Mary's Medical CenterComment on above:Performed By: #### CBC, CMP #### [facility] [address] [place] [address] USAErythrocytes [#/volume] in Blood by Automated countOrdered By: Mg Vaughn on 53-84-0688SFK (Bld) [#/Vol]5.25 10*6/uLHigh3.60-5.[address] [facility] HospitalComment on above:Performed By: #### CBC, CMP #### [facility] [address] [place] [address] USAGlobulin Calc (S) [Mass/Vol]Ordered By: Mg Vaughn on 99-26-4192Tswvsulu (S) [Mass/Vol]Serum globulin measurement by calculation (mass/volume)[facility]. Mary HospitalHematocrit Auto (Bld) [Volume fraction]Ordered By: Mg Vaughn on 61-05-3839Oejmgaonjg (Bld) [Volume fraction]Hematocrit [Volume Fraction] of Blood by Automated count34.0-46.[address] [facility] HospitalHematocrit [Volume Fraction] of Blood by Automated countOrdered By: Mg Vaughn on 64-05-0404Aztucybsup (Bld) [Volume fraction]43.9 %Gybvbq52.0-46.4FSt. Mary's Medical CenterComment on above: Performed By: #### CBC, CMP #### [facility] [address] [place] [id number] USAHemoglobin [Mass/volume] in BloodOrdered By: Mg Vaughn on 38-85-6914Oufyvyvhsk (Bld) [Mass/Vol]14.2 g/jJFaxtbm22.8-15.4FSt. Mary's Medical CenterComment on above:Performed By: #### CBC, CMP #### [facility] [address] [place] [id number] USAHemoglobin (Bld) [Mass/Vol]Hemoglobin [Mass/volume] in Blood11.8-15.4FSt. Mary's Medical CenterLeukocytes [#/volume] corrected for nucleated erythrocytes in Blood by Automated counOrdered By: Mg Vaughn on 27-59-7567GPH corrected for nucl RBC Auto (Bld) [#/Vol]7.0 10*3/uL3.8-11.[address] [facility] HospitalWBC corrected for nucl RBC Auto (Bld) [#/Vol] Leukocytes [#/volume] corrected for nucleated erythrocytes in Blood by Automated coun3.8-11.6FSt. Mary's Medical CenterLeukocytes [#/volume] in Blood by Automated countOrdered By: Mg Vaughn on 44-08-0673WKN (Bld) [#/Vol]7.0 10*3/uLNormal3.8-11.6FSt. Mary's Medical CenterComment on above:Performed By: #### CBC, CMP #### [facility] [address] [place] [address] USALymphocytes Auto (Bld) [#/Vol]Ordered By: Mg Vaughn on 59-17-2819Eknakescgpw (Bld) [#/Vol]Lymphocytes [#/volume] in Blood by Automated count1.00-4.8Mount [facility]. Mary HospitalLymphocytes [#/volume] in Blood by Automated countOrdered By: Mg Vaughn on 22-90-2979Krohkiytezn (Bld) [#/Vol]2.0 10*3/uLNormal1.00-4.8[facility]. Mary HospitalComment on above:Performed By: #### CBC, CMP #### [place] [id number] USALymphocytes/100 WBC Auto (Bld)Ordered By: Mg Vaughn on 26-03-6523Dasbghkpxsw/100 WBC (Bld)Lymphocytes/100 leukocytes in Blood by Automated count.[facility]. Mary HospitalLymphocytes/100 leukocytes in Blood by Automated countOrdered By: Mg Vaughn on 74-89-6396Edmwzvasxiv/100 WBC (Bld)28.5 %Normal.[facility]. Mary HospitalComment on above: Performed By: #### CBC, CMP #### [facility] [address] [place], [place] [id number] [facility] Auto (RBC) [Entitic mass]Ordered By: Mg Vaughn on 83-90-7787IGT (RBC) [Entitic mass]MCH [Entitic mass] by Automated count24.7-34.3 [facility] [Entitic mass] by Automated countOrdered By: Mg Vaughn on 74-36-0572QDB (RBC) [Entitic mass]27.1 ikAjiimr14.7-34.[address] Mary HospitalComment on above:Performed By: #### CBC, CMP #### [address] [place] [address] USAHC Auto (RBC) [Mass/Vol]Ordered By: Mg Vaughn on 88-87-2686XXKQ (RBC) [Mass/Vol]32.3 g/dL32.0-35.0Ber[facility] HospitalHC (RBC) [Mass/Vol]MCHC [Mass/volume] by Automated count32.0-35.0 Berger HospitalV Auto (RBC) [Entitic vol]Ordered By: Mg Vaughn on 80-44-5710XFP (RBC) [Entitic vol]MCV [Entitic volume] by Automated -899FewielatnMount St. Mary HospitalMCV [Entitic volume] by Automated countOrdered By: Mg Vaughn on 72-45-2570COL (RBC) [Entitic vol] 83.8 lYOwpiul52-116FbuuonzojMount St. Mary HospitalComment on above:Performed By: #### CBC, CMP #### [place] [id number] USAMRSA Cultureon 33-56-6098OSYX CultureMRSA Culture Results No MRSA Isolated 2 Days Rare growth of normal respiratory nava. PERFORMED BY: [place] [address] PATHOLOGIST TALENT RECRUITER JASMEET LIN M.D.NormalBaptist Medical Center South Physician GroupComment on above:Performed By: #### CMP, CBC, HS TROP, TSH3 wRFLX #### [place] [id number] USAMonocytes Auto (Bld) [#/Vol]Ordered By: Mg Vaughn on 18-88-6581Lbqssgonw (Bld) [#/Vol]Automated blood monocyte count0.0-0.8Mount St. Mary HospitalMonocytes/100 WBC Auto (Bld)Ordered By: Mg Vaughn on 04-57-5874Uydbtvdkz/100 WBC (Bld)Automated monocyte %.[facility] Mary HospitalNeutrophils Auto (Bld) [#/Vol]Ordered By: Mg Vaughn on 21-38-7552Muqwisotetu (Bld) [#/Vol]Neutrophils [#/volume] in Blood by Automated count1.8-7.7FSt. Mary's Medical CenterNeutrophils [#/volume] in Blood by Automated countOrdered By: Mg Vaughn on 20-43-8452Ttamijjsxlo (Bld) [#/Vol] 4.1 10*3/uLNormal1.8-7.7FSt. Mary's Medical CenterComment on above: Performed By: #### CBC, CMP #### [facility] [address] [id number] USANeutrophils/100 WBC Auto (Bld)Ordered By: Mg Vaughn on 93-87-8511Urimddwtfow/100 WBC (Bld)Automated neutrophil %.[facility]. Mary HospitalNucleated erythrocytes [Presence] in Blood by Automated count Ordered By: Mg Vaughn on 27-69-2994Cxmlkocdj RBC Auto Ql (Bld)0.1 /100{WBC} 0-0.5FSt. Mary's Medical CenterNucleated RBC Auto Ql (Bld)Nucleated erythrocytes [Presence] in Blood by Automated count0-0.5FSt. Mary's Medical CenterPlatelet mean volume Auto (Bld) [Entitic vol]Ordered By: Mg Vaughn on 96-78-6916Stonyrdn mean volume (Bld) [Entitic vol]Platelet mean volume [Entitic volume] in Blood by Automated count6.3-10.7FSt. Mary's Medical CenterPlatelet mean volume [Entitic volume] in Blood by Automated countOrdered By: Mg Vaughn on 64-00-2120Omgefvdr mean volume (Bld) [Entitic vol]7.2 fL Normal6.3-10.7FSt. Mary's Medical CenterComment on above:Performed By: #### CBC, CMP #### [facility] [address] [place] [address] USAPlatelets Auto (Bld) [#/Vol]Ordered By: Mg Vaughn on 71-07-4433Dmiaphvod (Bld) [#/Vol]Platelets [#/volume] in Blood by Automated bhaar977-140UqvghvpdfMount St. Mary HospitalPlatelets [#/volume] in Blood by Automated countOrdered By: Mg Vaughn on 66-97-2794Hdiwawrvv (Bld) [#/Vol] 334 10*3/fLHgzhzn377-083VpsexwkzkMount St. Mary HospitalComment on above: Performed By: #### CBC, CMP #### [facility] [address] [id number] USAProtein [Mass/volume] in Serum or PlasmaOrdered By: Mg Vaughn on 79-55-7163Cedxjoh [Mass/Vol]7.1 g/dLNormal6.4-8.9[facility]. Mary HospitalComment on above:Performed By: #### CBC, CMP #### [facility] [address] [place] [address] USAProtein [Mass/Vol]Protein [Mass/volume] in Serum or Plasma 6.4-8.9[facility]. Mary HospitalRBC Auto (Bld) [#/Vol]Ordered By: Mg Vaughn on 54-32-7233BAF (Bld) [#/Vol]Erythrocytes [#/volume] in Blood by Automated countHigh3.60-5.00Mount St. Mary HospitalRespiratory (Upper) Panel, PCRon 85-15-2769Tvubnpluujb (Upper) Panel, PCRAdenovirus Not detected Bordetella parapertussis Not detected Chlamydia [...] Influenza A H3 Blank Space PERFORMED BY: [place] [address] PATHOLOGIST TALENT RECRUITER JASMEET LIN M.D.NormalThe Atrium Health Pineville Physician GroupComment on above:Performed By: #### RESP PANEL UPP., BIOFIRECOVNOTDE #### [facility] [address] [place] [address] USARespiratory pathogens DNA and RNA panel - Nasopharynx by KRUNAL with non-probe detectionOrdered By: Mg Vaughn on 64-36-8339Kjketdiwzlx pathogens DNA and RNA panel KRUNAL+non-probe (Nph)Respiratory pathogens DNA and RNA panel - Nasopharynx by KRUNAL with non-probe detectionMount St. Mary HospitalRespiratory pathogens DNA and RNA panel KRUNAL+non-probe (Nph)[facility] Hospitalerum globulin measurement by calculation (mass/volume) Ordered By: Mg Vaughn on 64-98-3806Nyrgpdjc (S) [Mass/Vol]3.2 g/dLNormal [facility]. Mary HospitalComment on above:Performed By: #### CBC, CMP #### [facility] [address] [place], [place] [phone] USASerum or plasma albumin/globulin mass ratioOrdered By: Mg Vaughn on 44-68-1159Fxsqlqc/Globulin [Mass ratio]1.2 {ratio}Normal [facility] Mary HospitalComment on above:Performed By: #### CBC, CMP #### [facility] [address] [place] [address] USAAlbumin/Globulin [Mass ratio]Serum or plasma albumin/globulin mass ratioMount St. Mary HospitalWBC Auto (Bld) [#/Vol]Ordered By: Mg Vaughn on 67-09-7179KAD (Bld) [#/Vol]Leukocytes [#/volume] in Blood by Automated count3.8-11.6FSt. Mary's Medical Center Wound methicillin resistant Staphylococcus aureus (MRSA) cultureOrdered By: Denver Rasmussen on 42-25-7369IVJS isol Org specific cx Ql (Unsp spec) [facility] Mary HospitalXR chest 1V portableon 08-77-6710IX chest 1V portableRIVERVIEW HEALTH [facility] [place] [address] [place], [place] [phone] XRay Report Signed Patient: Cinthia Guerrero MR#: [id number] : 1960 Acct:[id number] Age/Sex: 63 / F ADM Date: 12/20/23 Loc: Room: [address] [place] [address] Type: ADM INOo Attending Dr: Cassandra Andersen [...] Jeanette Carlin M.D.12/21/2023 7:51 AM Dictation Location: [place] [address] Transcribed By: [facility] 12/21/23 0751 Dictated By: Jeanette Carlin MD 12/21/23 0748 Signed By: 12/21/23 0751[facility] Physician GroupAlanine aminotransferase [Enzymatic activity/volume] in Serum or PlasmaOrdered By: Rip Celestin on 37-80-4948HMR [Catalytic activity/Vol]28 U/LNormal7-52Mount St. Mary HospitalComment on above:Performed By: #### CMP, CBC, HS TROP, TSH3 wRFLX #### [facility] [address] [place], [place] [phone] USAAlbumin [Mass/volume] in Serum or Plasma by Bromocresol green (BCG) dye binding methoOrdered By: Rip Ant on 13-43-1557Mmpxcyd BCG dye [Mass/Vol]4.2 g/dL3.5-5.7FSt. Mary's Medical CenterAlkaline phosphatase [Enzymatic activity/volume] in Serum or PlasmaOrdered By: Rip Celestin on 30-11-1257YED [Catalytic activity/Vol]77 U/IRilwyd41-081YygdlaharMount St. Mary HospitalComment on above:Performed By: #### CMP, CBC, HS TROP, TSH3 wRFLX #### [facility] [address] [place] [address] USAAspartate aminotransferase [Enzymatic activity/volume] in Serum or PlasmaOrdered By: Rip Celestin on 86-02-9578LSC [Catalytic activity/Vol]20 U/VAvokqb22-99FysufikbxMount St. Mary HospitalComment on above: Performed By: #### CMP, CBC, HS TROP, TSH3 wRFLX #### [place] [address] USAAutomated basophil %Ordered By: Rip Celestin on 12-20-2023 Basophils/100 WBC (Bld)0.3 %Normal.[facility] St. Mary HospitalComment on above:Performed By: #### CMP, CBC, HS TROP, TSH3 wRFLX #### [place] [address] USAAutomated basophil countOrdered By: Rip Celestin on 96-04-2498Grkfmnskc (Bld) [#/Vol]0.0 10*3/uLNormal0.0-0.2FSt. Mary's Medical CenterComment on above:Result Comment: PERFORMED BY: [place] [address] PATHOLOGIST TALENT RECRUITER JASMEET LIN M.D.Performed By: #### CMP, CBC, HS TROP, TSH3 wRFLX #### [place] [address] USAAutomated blood monocyte countOrdered By: Rip Celestin on 86-82-6487Whmptvrbq (Bld) [#/Vol]0.5 10*3/uLNormal0.0-0.8[facility]. Mary HospitalComment on above:Performed By: #### CMP, CBC, HS TROP, TSH3 wRFLX #### [facility] [address] [place] [address] USAAutomated eosinophil %Ordered By: Rip Celestin on 53-62-0634Xuxhforoadw/100 WBC (Bld)0.1 %Normal.[facility] Comment on above:Performed By: #### CMP, CBC, HS TROP, TSH3 wRFLX #### [facility] [address] [place] [address] USAAutomated eosinophil countOrdered By: Rip Celestin on 05-52-0599Gzwyeeavhpt (Bld) [#/Vol]0.0 10*3/uLNormal0.0-0.45[facility]. Mary HospitalComment on above:Performed By: #### CMP, CBC, HS TROP, TSH3 wRFLX #### [facility] [address] [place] [address] USAAutomated monocyte %Ordered By: Rip Celestin on 12-20-2023 Monocytes/100 WBC (Bld)5.9 %Normal.[facility]. Mary HospitalComment on above:Performed By: #### CMP, CBC, HS TROP, TSH3 wRFLX #### [facility] [address] [place] [address] USAAutomated neutrophil %Ordered By: Rip Celestin on 32-63-9147Dogswqpbhuk/100 WBC (Bld)83.9 %Normal.[facility]. Mary HospitalComment on above:Performed By: #### CMP, CBC, HS TROP, TSH3 wRFLX #### [facility] [address] [place] [address] USABNP ser/plasOrdered By: Rip Celestin on 12-20-2023 Natriuretic peptide B (Bld) [Mass/Vol]44.0 pg/mLNormal5-100Mount St. Mary HospitalComment on above:Result Comment: PERFORMED BY: [place] [address] PATHOLOGIST TALENT RECRUITER JASMEET LIN M.D.Performed By: #### CMP, CBC, HS TROP, TSH3 wRFLX #### [facility] [address] [place] [address] USABilirubin.total [Mass/volume] in Serum or PlasmaOrdered By: Rip Celestin on 59-88-1278Rfmdkfdjf [Mass/Vol]0.3 mg/dLNormal0.3-1.[address] Mary HospitalComment on above:Performed By: #### CMP, CBC, HS TROP, TSH3 wRFLX #### [facility] [address] [phone] USACalcium [Mass/volume] in Serum or PlasmaOrdered By: Rip Celestin on 24-40-8130Mpcbnks [Mass/Vol]9.8 mg/dLNormal8.6-10.3FSt. Mary's Medical CenterComment on above:Performed By: #### CMP, CBC, HS TROP, TSH3 wRFLX #### [facility] [address] [place] [phone] USACarbon dioxide, total [Moles/volume] in Serum or Plasma Ordered By: Rip Celestin on 28-45-9002JD1 [Moles/Vol]mmol/LHigh21.0-31.[address] Mary HospitalComment on above:Critical valueresult calledat 2101 on 12/20/23Result Comment: Critical value result called at 2101 on 12/20/23Performed By: #### CMP, CBC, HS TROP, TSH3 wRFLX #### [facility] [address] [place] [address] USAChloride [Moles/volume] in Serum or PlasmaOrdered By: Rip Celestin on 86-58-1288Fblfxvoc [Moles/Vol]86 mmol/RBmy01-835GvuybrbibMount St. Mary HospitalComment on above:Performed By: #### CMP, CBC, HS TROP, TSH3 wRFLX #### [facility] [address] [place] [address] USAComplete Blood Count Auto Diffon 48-25-9273Bqps Corpuscular HGB Conc32.6 g/bQUkanzn92.0-35.0The [facility] Physician GroupComment on above:Performed By: #### CMP, CBC, HS TROP, TSH3 wRFLX #### [place] [address] USAMonocytes/100 WBC (Bld)16.32 %Normal0.00-20.00[facility] Physician [facility] HospitalComment on above:Performed By: #### CMP, CBC, HS TROP, TSH3 wRFLX #### [place] [address] USANRBC%0.1 /100{WBC}Normal0-0.5[facility] Physician [facility] Comment on above:Performed By: #### CMP, CBC, HS TROP, TSH3 wRFLX #### [place] [address] USAComprehensive Metabolic Panelon 35-93-5827Tmdarjl [Mass/Vol]4.2 g/dLNormal3.5-5.7[facility] Physician [facility] HospitalComment on above: Performed By: #### CMP, CBC, HS TROP, TSH3 wRFLX #### [place] [address] USAAnion gap [Moles/Vol]Not performedNormal6.0-15.0[facility] Physician [facility] HospitalComment on above:Performed By: #### CMP, CBC, HS TROP, TSH3 wRFLX #### [place] [address] USACreatinine Clr Calc Jlnagafo32.74NormalThe [facility] Physician GroupComment on above:Result Comment: PERFORMED BY: [place] [address] PATHOLOGIST TALENT RECRUITER JASMEET LIN M.D.Performed By: #### CMP, CBC, HS TROP, TSH3 wRFLX #### [place] [address] USAGFR/1.73 sq M.predicted MDRD (S/P/Bld) [Vol rate/Area] mL/min/{1.73_m2}NormalThe [facility] Physician GroupComment on above:Performed By: #### CMP, CBC, HS TROP, TSH3 wRFLX #### [facility] [address] [place] [address] USACreatine kinase [Enzymatic activity/volume] in Serum or PlasmaOrdered By: Rip Celestin on 66-97-4753UT [Catalytic activity/Vol]24 U/LLow [facility] Mary HospitalComment on above:Performed By: #### CMP, CBC, HS TROP, TSH3 wRFLX #### [facility] [address] [place] [address] USACK [Catalytic activity/Vol]Creatine kinase [Enzymatic activity/volume] in Serum or QulqikZzz20-118MhvhzzpgqMount St. Mary Hospital Creatinine [Mass/volume] in Serum or PlasmaOrdered By: Rip Celestin on 27-96-9993Bcqlkopmky [Mass/Vol]0.41 mg/dLLow0.60-1.20[facility] St. Mary HospitalComment on above:Performed By: #### CMP, CBC, HS TROP, TSH3 wRFLX #### [facility] [address] [place], [place] [address] USAECG 12 lead ECGon 91-40-3406FAJ 12 lead ECGRIVERVIEW [facility] [place] [address] [place], [place] [address] Electrocardiograph Report Signed Patient: Cinthia Guerrero MR#: [id number] : 1960 Acct:[id number] Age/Sex: 63 / F ADM Date: 12/20/23 Loc: Room: [address] [place] [address] Type: ADM INOo Attending Dr: Mg Vaughn MD Ordering Provider: Rip Celestin, Date of Service: 12/20/2312/05/1946 ECG/ECG 12 lead [...] By: MUS Signed By Rip Celestin DO [address] [place] [address] Physician GroupErythrocyte distribution width [Ratio] by Automated countOrdered By: Rip Celestin on 34-88-8370Qinrchbgdaw distribution width (RBC) [Ratio]14.1 %Jpgfyd75.9-15.3FSt. Mary's Medical CenterComment on above:Performed By: #### CMP, CBC, HS TROP, TSH3 wRFLX #### [facility] [address] [place] [phone] USAErythrocytes [#/volume] in Blood by Automated countOrdered By: Rip Celestin on 61-78-8395MDZ (Bld) [#/Vol]5.37 10*6/uLHigh3.60-5.[address] [facility] HospitalComment on above:Performed By: #### CMP, CBC, HS TROP, TSH3 wRFLX #### [facility] [address] [place] [address] USAGlucose [Mass/volume] in Serum or PlasmaOrdered By: Rip Celestin on 00-13-9276Ipufhsh [Mass/Vol]103 mg/sHUixo79-369RfycbndmfMount St. Mary HospitalComment on above:ADA recommended reference rangeRandom Glucose Reference Range is dependent on time and content of last meal. Glucose of more than 200 mg/dL in a nonstressed, ambulatory subject supports the diagnosisof Diabetes Mellitus.Result Comment: Random Glucose Reference Range is dependent on time and content of last meal. Glucose of more than 200 mg/dL in a nonstressed, ambulatory subject supports the diagnosis of Diabetes Mellitus. ADA recommended reference rangePerformed By: #### CMP, CBC, HS TROP, TSH3 wRFLX #### [facility] [address] [place] [address] USAHematocrit [Volume Fraction] of Blood by Automated count Ordered By: Rip Celestin on 03-05-6672Omfniruomq (Bld) [Volume fraction]44.5 % Ustoib34.0-46.4FSt. Mary's Medical CenterComment on above:Performed By: #### CMP, CBC, HS TROP, TSH3 wRFLX #### [facility] [address] [place] [phone] USAHemoglobin [Mass/volume] in BloodOrdered By: Rip Celestin on 13-14-7879Cliyzlwxhs (Bld) [Mass/Vol]14.5 g/tOGwomnb31.8-15.4FSt. Mary's Medical CenterComment on above:Performed By: #### CMP, CBC, HS TROP, TSH3 wRFLX #### [facility] [address] [place] [phone] USALeukocytes [#/volume] corrected for nucleated erythrocytes in Blood by Automated counOrdered By: Rip Celestin on 02-05-4675GWU corrected for nucl RBC Auto (Bld) [#/Vol]8.4 10*3/uL3.8-11.6FSt. Mary's Medical CenterLeukocytes [#/volume] in Blood by Automated countOrdered By: Rip Celestin on 07-70-2789NMU (Bld) [#/Vol]8.4 10*3/uLNormal3.8-11.6FSt. Mary's Medical CenterComment on above:Performed By: #### CMP, CBC, HS TROP, TSH3 wRFLX #### [facility] [address] [place] [phone] USALymphocytes [#/volume] in Blood by Automated countOrdered By: Rip Celestin on 95-27-3576Xlmtdlnkfuk (Bld) [#/Vol]0.8 10*3/uLLow1.00-4.[address] [facility] HospitalComment on above:Performed By: #### CMP, CBC, HS TROP, TSH3 wRFLX #### [place] [id number] USALymphocytes/100 leukocytes in Blood by Automated count Ordered By: Rip Celestin on 86-20-0805Arehnxpgdza/100 WBC (Bld)9.8 %Normal. [facility] Mary HospitalComment on above:Performed By: #### CMP, CBC, HS TROP, TSH3 wRFLX #### [facility] [address] [Entitic mass] by Automated countOrdered By: Rip Celestin on 74-07-5635RZA (RBC) [Entitic mass]27.0 ajCnxyvb53.7-34.3FSt. Mary's Medical CenterComment on above:Performed By: #### CMP, CBC, HS TROP, TSH3 wRFLX #### [facility] [address] [place] [address] Auto (RBC) [Mass/Vol]Ordered By: Rip Celestin on 55-14-8982RTYU (RBC) [Mass/Vol]32.6 g/dL32.0-35.0[facility] Mary HospitalMCV [Entitic volume] by Automated countOrdered By: Rip Celestin on 47-66-1996BNB (RBC) [Entitic vol]82.9 oDHejipo65-536YdqgenpoeMount St. Mary HospitalComment on above:Performed By: #### CMP, CBC, HS TROP, TSH3 wRFLX #### [facility] [address] [place] [address] USAMonocyte distribution width [Entitic volume] in Blood by AutomatedOrdered By: Rip Celestin on 89-34-1053Vpurzwvr distribution width Auto (Bld) [Entitic vol]16.32 %0.00-20.00[facility] Mary HospitalMonocyte distribution width Auto (Bld) [Entitic vol]Monocyte distribution width [Entitic volume] in Blood by Automated0.00-20.00[facility] Natriuretic peptide B [Mass/Vol]Ordered By: Rip Celestin on 12-20-2023 Natriuretic peptide B (Bld) [Mass/Vol]BNP ser/plas5-100[facility] Mary HospitalNeutrophils [#/volume] in Blood by Automated countOrdered By: Rip Celestin on 41-89-9940Qudlbqqreyi (Bld) [#/Vol]7.0 10*3/uLNormal1.8-7.[address] [facility] HospitalComment on above:Performed By: #### CMP, CBC, HS TROP, TSH3 wRFLX #### [facility] [address] [place] [address] USANo Panel InformationOrdered By: Rip Celestin on 12-20-2023 Blood Gas Critical ValueSee commentMount St. Mary HospitalComment on above:Critical Value called on: 12/20/2023 at 20:23Blood Gas Sample SiteVenous [facility] HospitalFiO228 %[facility] Mary HospitalOxygen Delivery DeviceNasal cannulaMount St. Mary HospitalVenous Blood Base Tkygma14.9 mmol/LHigh-3.0-3.0[facility] Mary HospitalVenous Blood Oxygen Content8.2 mmol/L6.6-9.7FSt. Mary's Medical CenterVenous Blood Oxygen Qbukpxccka54.6 %High73.0-76.0[facility] Mary HospitalVenous Blood Partial Pressure CO284.8 mm[Hg]Critically high38.0-50.0[facility] Mary HospitalVenous Blood Partial Pressure O246.5 mm[Hg]High35.0-45.0[facility] Mary HospitalVenous Blood pH7.377.32-7.43[facility] Mary HospitalEstimated GFR (CKD-EPI)> 60.0 mL/MinMount St. Mary Hospital Pharmacy Creatinine Clearance (Chem94.74[facility] Nucleated erythrocytes [Presence] in Blood by Automated countOrdered By: Rip Celestin on 05-84-3516Zrgjxneky RBC Auto Ql (Bld)0.1 /100{WBC}0-0.5FSt. Mary's Medical CenterPlatelet mean volume [Entitic volume] in Blood by Automated countOrdered By: Rip Celestin on 04-80-1344Sedpxzth mean volume (Bld) [Entitic vol]7.0 fLNormal6.3-10.7FSt. Mary's Medical CenterComment on above:Performed By: #### CMP, CBC, HS TROP, TSH3 wRFLX #### [facility] [address] [place] [address] USAPlatelets [#/volume] in Blood by Automated countOrdered By: Rip Celestin on 14-40-2522Keoexvucu (Bld) [#/Vol]346 10*3/oDKlfgqq413-[address] [facility] HospitalComment on above:Performed By: #### CMP, CBC, HS TROP, TSH3 wRFLX #### [facility] [address] [place] [address] USAPotassium [Moles/volume] in Serum or PlasmaOrdered By: Rip Celestin on 19-15-2580Keyskzifk [Moles/Vol]4.4 mmol/LNormal3.5-5.1FSt. Mary's Medical CenterComment on above:Performed By: #### CMP, CBC, HS TROP, TSH3 wRFLX #### [facility] [address] [place] [address] USAProtein [Mass/volume] in Serum or PlasmaOrdered By: Rip Celestin on 07-26-8969Ctntamp [Mass/Vol]7.6 g/dLNormal6.4-8.9[facility] Mary HospitalComment on above:Performed By: #### CMP, CBC, HS TROP, TSH3 wRFLX #### [facility] [address] [place] [address] USASerum globulin measurement by calculation (mass/volume) Ordered By: Rip Celestin on 83-26-6910Kvhantmc (S) [Mass/Vol]3.4 g/dLNormal [facility] Mary HospitalComment on above:Performed By: #### CMP, CBC, HS TROP, TSH3 wRFLX #### [facility] [address] [place] [id number] USASerum or plasma albumin/globulin mass ratioOrdered By: Rip Celestin on 54-14-4987Fteihkc/Globulin [Mass ratio]1.2 {ratio}Normal [facility] HospitalComment on above:Performed By: #### CMP, CBC, HS TROP, TSH3 wRFLX #### [facility] [address] [place] [address] USASerum or plasma anion gap determinationOrdered By: Rip Celestin on 73-46-4579Fiubn gap [Moles/Vol]TNPMount St. Mary Hospital Comment on above:Test not performedSodium [Moles/volume] in Serum or Plasma Ordered By: Rip Ant on 42-61-6276Apamhy [Moles/Vol]136 mmol/FPcvwjx624-[address] [facility] HospitalComment on above:Performed By: #### CMP, CBC, HS TROP, TSH3 wRFLX #### [facility] [address] [place] [address] USATheophyllineon 91-11-2827Pjbuuuqjwvyi3.6 ug/mLLow10.0-20.0 [facility] Phys[facility] GroupComment on above:Order Comment: Date of last dose?: 20231220 Time of last dose?: 899Result Comment: Last dose: 12/20/23-899 PERFORMED BY: [place] [address] PATHOLOGIST TALENT RECRUITER JASMEET LIN M.D.Performed By: #### CMP, CBC, HS TROP, TSH3 wRFLX #### [address] [address] USATheophylline [Mass/volume] in Serum or PlasmaOrdered By: Rip Celestin on [id number] [Mass/Vol]3.6 ug/mLLow10.0-20.0[facility] HospitalComment on above:Last dose: 12/20/23-899Theophylline [Mass/Vol]Theophylline [Mass/volume] in Serum or GaanjsLvj51.0-20.0[facility] HospitalComment on above:Last dose: 12/20/23-899Troponin I High Sensitivityon 24-62-0198Hdyaqwuj I High Sensitivity4.3 pg/mLNormal0.0-15.0[facility] Phys[facility] GroupComment on above:Result Comment: PERFORMED BY: [address] [id number] PATHOLOGIST TALENT RECRUITER JASMEET LIN M.D.Performed By: #### CMP, CBC, HS TROP, TSH3 wRFLX #### [facility] [address] [place] [address] USATroponin I.cardiac [Mass/volume] in Serum or Plasma by Detection limit <= 0.01 ng/Ordered By: Rip Celestin on 11-38-5549Mftoikoy I.cardiac DL <= 0.01 ng/mL [Mass/Vol]4.3 pg/mL0.0-15.0[facility] Mary HospitalTroponin I.cardiac DL <= 0.01 ng/mL [Mass/Vol]Troponin I.cardiac [Mass/volume] in Serum or Plasma by Detection limit <= 0.01 ng/0.0-15.0[facility] Mary HospitalUrea nitrogen [Mass/volume] in Serum or PlasmaOrdered By: Rip Celestin on 72-53-2902Wgbo nitrogen [Mass/Vol]11 mg/dLNormal11-[address] Mary HospitalComment on above:Performed By: #### CMP, CBC, HS TROP, TSH3 wRFLX #### [facility] [address] [place] [address] USAVenous Blood GasOrdered By: Rip Celestin on 79-20-3602JH9 [Moles/Vol]50.2 mmol/LHigh24.0-29.0[facility]. Mary HospitalComment on above:Performed By: #### CMP, CBC, HS TROP, TSH3 wRFLX #### [facility] [address] [place] [address] USAHCO3 (Bld) [Moles/Vol]47.6 mmol/LHigh23.0-29.0[facility]. Mary HospitalComment on above:Performed By: #### CMP, CBC, HS TROP, TSH3 wRFLX #### [facility] [address] [place] [address] USAVenous Blood Gason 05-48-6294Zvetno DeviceNasal Cannula NormalThe [facility] Physician GroupComment on above:Performed By: #### CMP, CBC, HS TROP, TSH3 wRFLX #### [facility] [address] [place] [address] USARespiratory CriticalNormalThe [facility] Comment on above:Result Comment: Critical Value called on: 12/20/2023 at 20:23 PERFORMED BY: [place] [address] PATHOLOGIST TALENT RECRUITER JASMEET LIN M.D.Performed By: #### CMP, CBC, HS TROP, TSH3 wRFLX #### [address] [address] USAVBG Base Rgndgy90.9 mmol/LHigh-3.0-3.0The [facility] Physician GroupComment on above:Performed By: #### CMP, CBC, HS TROP, TSH3 wRFLX #### [place] [address] USAVBG Draw [facility] Physician [facility] Comment on above:Performed By: #### CMP, CBC, HS TROP, TSH3 wRFLX #### [place] [address] USAVBG Frac Inspired O228 %NormalThe [facility] Physician GroupComment on above:Performed By: #### CMP, CBC, HS TROP, TSH3 wRFLX #### [place] [id number] USAVBG O2 Content8.2 mmol/LNormal6.6-9.7The [facility] Physician GroupComment on above:Performed By: #### CMP, CBC, HS TROP, TSH3 wRFLX #### [address] [address] USAVBG Oxygen Rcsvabvvhb50.6 %High73.0-76.0The [facility] Physician GroupComment on above:Performed By: #### CMP, CBC, HS TROP, TSH3 wRFLX #### [address] [address] USAVBG CKQ292.8 mm[Hg]Off scale high38.0-50.0The [facility] Physician GroupComment on above:Performed By: #### CMP, CBC, HS TROP, TSH3 wRFLX #### [place] [id number] USAVBG PH Venous PH7.76Wtmcib6.32-7.43The [facility] Physician GroupComment on above:Performed By: #### CMP, CBC, HS TROP, TSH3 wRFLX #### [facility] [address] [place] [address] USAVBG PO246.5 mm[Hg]High35.0-45.0The [facility] Physician GroupComment on above:Performed By: #### CMP, CBC, HS TROP, TSH3 wRFLX #### [facility] [address] [place] [address] USAANES POSTPROC EVALon [id number] POSTPROC EVALHNO ID: [id number] Author: DORON FLORENTINO MD Service: ? Author Type: Anesthesiologist Type: Anesthesia Postprocedure Evaluation Filed: 11/19/2023 07:55 Note Text: POST ANESTHESIA EVALUATION NOTE : 1960 Procedure Summary Date: 11/18/23 Room / Location: [address] [facility] Anesthesia Start: 1535 Anesthesia Stop: 1748 Procedure: BIOPSY OR EXCISION LYMPH NODE(S) OPEN, [...] November 19, 2023 TIME: 7:55 AM CSN: [id number] City Hospital [facility]23 CNPNTelephone (HNQ) CINTHIA GUERRERO ([id number]) 1960 F Date Time Provider Department 11/19/23 TEO CRAFT HNQ During your visit today, we recorded the following information about you: Ananya Acuna 11/19/2023 1:51 PM Signed Person Calling:Omaira Reason for Call: requesting a work excuse for her daughter Kendal Ruiz [facility] 11/17 AND 11/18. Pt Phone #: [phone] Pharmacy Name and # : Pt last seen: Visit date not found Ananya HEARD Allergies As of Date: 11/19/2023 (No Known Allergies) Date Reviewed: 11/18/2023 Reviewed by: Khushboo Patel RN - Fully Assessed Reason for Visit: [...] Text Encounter Status:Closed by ANANYA ACUNA on 11/19/23NoPrem[facility] PRE-OPon [id number] PRE-OPHNO ID: [id number] Author: DORON FLORENTINO MD Service: ? Author [...] November 18, 2023 TIME: 3:43 PM CSN: [id number] [facility] COMPLETEon 10-39-6444Jdvveu Vabp129PMROxywdnrgh ClinicCalculated P Rwin16xagryfuEdvbdrckk ClinicCalculated R Fqwh38zdjfchcVekxbpmak ClinicCalculated T Ekhb65sstmabm [facility] CenterP-R Iubugqft200 msCleveland ClinicQRS Lcblftui13 msCleveland ClinicQT Prncxvoe860 msCleveland ClinicQTC Calculation (Bazett)431 msCleveland ClinicVentricular Vuhv723QTOSclxsgyja ClinicSINUS TACHYCARDIA RIGHT ATRIAL ENLARGEMENT MINIMAL VOLTAGE CRITERIA FOR LVH, MAY BE NORMAL VARIANT BORDERLINE ECG NO PREVIOUS ECGS AVAILABLE Confirmed by MD BLAND GREGORY () on 11/18/2023 7:35:32 AMMEDINA CPDNAME : CINTHIA GUERRERO PID : [id number] : 1960 Gender : Female Race : ORD : [id number] Procedure Date : Nov 17 2023 14:38:04 Edit Date : Nov 18 2023 07:35:34 Diagnosis: SINUS TACHYCARDIA RIGHT ATRIAL ENLARGEMENT MINIMAL VOLTAGE CRITERIA FOR LVH, MAY BE NORMAL VARIANT BORDERLINE ECG NO PREVIOUS ECGS AVAILABLE Confirmed by MD BLAND GREGORY () on 11/18/2023 7:35:32 AM Test Reason : [facility] Location : 10 : [facility] Overread By : MD BLAND GREGORY Edited By : MD BLAND GREGORY Referred By : TEO CRAFT Acquired by : PERLA JUNIOR [facility] CenterOPERATIVE NOon [id number] NO HNO ID: [id number] Author: TEO CRAFT MD Service: Otolaryngology Author Type: Physician Type: Operative Report Filed: 11/23/2023 12:14 Note Text: The [place] [phone] or ([phone]) [facility] C O N F I D E N T I A L I N F O R M A T I O N STANDARD [facility] DOCUMENT OPERATIVE REPORT Otolaryngology Head and Neck Surgery Name: CINTHIA Guerrero [facility] #: [id number] Date: 11/18/2023 Date of : 1960 Pre [...] service of Teo Craft MD Brandon Prendes, MDNoBethesda North HospitalSURGICAL PATHOLOGYon [id number] REPORTMercy Health Anderson Hospital on above:Order Comment: Specimen Type: TISSUE SPECIMENOrdering Facility: [facility] Address: [address] [place], [place] [address]Result Comment: Surgical Pathology Report Case: [id number] Authorizing Provider: Teo Craft MD Collected: 11/18/2023 04:25 PM Ordering Location: Admitting Received: 11/18/2023 05:12 PM Pathologist: Stephane Elmore MD, PhD Specimens: A) - Lymph Node, Biopsy, Left posterior supraclavicular lymph node B) - Lymph Node, Biopsy, Left supraclavicular external jugular nodePerformed By: #### S ####[facility] LABCLIA [id number] [address] LABORATORYCLIA [id number] [address] HISTORYMercy Health Anderson Hospital on above:Order Comment: Specimen Type: TISSUE SPECIMENOrdering Facility: [facility] Address: [address] [place], [place] [address]Result Comment: Pre-op diagnosis: Non-small cell cancer of left lung (HCC) [C34.92] Lymphadenopathy [R59.1]Performed By: #### S ####[facility] LABCLIA [id number] [address] LABORATORYCLIA [id number] [address]DIAGNOSIS COMMENTNoBethesda North HospitalComment on above:Order Comment: Specimen Type: TISSUE SPECIMENOrdering Facility: [facility] Address: [address] [place], [place] [address]Result Comment: The morphologic findings described below show benign lymph nodes with follicular hyperplasia. Granulomatous diseases not identified. GMS stains are negative for microorganisms. There is no evidence of a lymphoproliferative disorder, metastatic carcinoma or other malignancy. Laboratory Developed Test (LDT) Disclaimer: Performance characteristics of immunohistochemical, immunofluorescent and chromogenic in-situ hybridization tests have been determined by the performing laboratory within [facility]???s [facility] Pathology and Laboratory Medicine Department ([facility], [facility], [facility], [facility], [facility], [facility], or [facility]) in a manner consistent with CLIA requirements. One or more of these tests havenot been cleared or approved by the FDA. [facility] is regulated under CLIA as qualified to perform high-complexity testing. These tests are used for clinical purposes. They should not be regarded as investigational or for research. Positive and negative controls stain appropriately.Performed By: #### S ####[facility] LABCLIA [id number] [facility]ENTERK [address] LABORATORYCLIA [id number] [address] [facility]INC[facility] MEDICAL CENTERFINAL DIAGNOSISNoBethesda North Hospital Comment on above:Order Comment: Specimen Type: TISSUE SPECIMENOrdering Facility: [facility] Address: [address] [place], [place] [address]Result Comment: Lymph nodes, left posterior supraclavicular and left supraclavicular external jugular, excisional biopsies (A-B): - Benign lymph nodes with follicular hyperplasia. - GMS stains negative for microorganisms. - No evidence of malignancy. - See comment. [facility] 11/27/2023 Performed By: #### S ####[facility] LABCLIA [id number] [address] LABORATORYCLIA [id number] [address] LABNoalCKettering Health Miamisburg on above:Order Comment: Specimen Type: TISSUE SPECIMENOrdering Facility: [facility] Address: [address] [place], [place] [address]Result Comment: Diagnostic interpretation performed at [facility], [address] [place] [address] CLIA# [id number] Plumber Gasfitter: Axel Romano M.D.Performed By: #### S ####[facility] LABCLIA [id number] [address] LABORATORYCLIA [id number] [address] DESCRIPTIONNoMercy Health Defiance Hospital on above:Order Comment: Specimen Type: TISSUE SPECIMENOrdering Facility: [facility] Address: [address] [place], [place] [address]Result Comment: A. Lymph Node, Biopsy Received in formalin, labeled left posterior supraclavicular lymph node is a carcamo-russell, ovoid portion of tissue, consistent with possible lymph node, measuring 1.5 x 1.5 x 0.7 cm. The specimen is sectioned and entirely submitted in cassettes A1-A2. B. Lymph Node, Biopsy Received in formalin, labeled left supraclavicular external jugular node is an unoriented portionof lobulated adipose tissue, measuring 2.3 x 2.0 x 1.0 cm. Palpation and dissection reveals 7 possible lymph nodes, ranging from 0.4 cm to 1.3 cm in greatest dimension. The possible lymph nodes are entirely submitted, as follows: B1: 4 intact possible lymph nodes B2: 3 intact possible lymph nodes AKA November 19, 2023 12:08 PM Gross examination performed at [facility], [address] [place], [place] [address]Performed By: #### S ####[facility] LABCLIA [id number] [address]IA [id number] [address]MICROSCOPIC DESCRIPTIONThe histologic sections of part A and B [...] A cyclin D1 stain shows no lymphoid staining.NormalSumma Health Wadsworth - Rittman Medical CenterComment on above:Order Comment: Specimen Type: TISSUE SPECIMENOrdering Facility: [facility] Address: [address] [place], [place] [address]Performed By: #### S ####[facility] LABIA [id number] [address] [id number] [address]ETBasi metabolic 2000 panelon 17-60-1265Ewdvj gap [Moles/Vol]8 mmol/L8 - 15 mmol/LCleveland ClinicCalcium [Mass/Vol]9.7 mg/dL 8.5 - 10.2 mg/dLJackson ClinicChloride [Moles/Vol]95 mmol/LLow98 - 107 mmol/L Jackson ClinicCO2 [Moles/Vol]36 mmol/LHigh22 - 30 mmol/LCleveland Clinic Creatinine [Mass/Vol]0.37 mg/dLLow0.58 - 0.96 mg/dLJackson ClinicGFR/1.73 sq M.predicted among non-blacks MDRD (S/P/Bld) [Vol rate/Area]114 mL/min/{1.73_m2}- PINFCleveland ClinicComment on above:Estimated Glomerular Filtration Rate (eGFR) is calculated using the 2020 CKD-EPI creatinine equation. This equation utilizes serum creatinine, sex, and age as parameters. The creatinine assay has traceable calibration to isotope dilution-mass spectrometry. Refer to KDIGO guidelines for clinical interpretation. In patients with unstable renal function, e.g. those with acute kidney injury, the eGFRmay not accurately reflect actual GFR.Glucose [Mass/Vol]200 mg/wFQgbx35 - 99 mg/dLAdams County Hospital on above:The [place] Diabetes Association (ADA) provides guidance for cutoff [...] Standards of Medical Care in Diabetes 2016, [place] [employer] Association. Diabetes Care. 2016.39(Suppl 1). Interpretation and review of laboratory resultsAbnormalCleveland ClinicPotassium [Moles/Vol]3.9 mmol/L3.7 - 5.1 mmol/LCleveland ClinicSodium [Moles/Vol]139 mmol/L136 - 144 mmol/LCleveland ClinicUrea nitrogen [Mass/Vol]8 mg/dL7 - 21 mg/dLSelect Medical Specialty Hospital - AkronAnion gap [Moles/Vol]8 mmol/LNormal8-15 [facility], IncComment on above:Order Comment: Specimen Type: BLOOD SPECIMEN [facility] Address: [address] [place], [place] [address]Performed By: #### 81246-4 #### [facility] CLIA [id number] [address] [place] [address] [place] OF AMERICACalcium [Mass/Vol]9.7 mg/dLNormal 8.5-10.2Mchicago HospitalComment on above:Order Comment: Specimen Type: BLOOD SPECIMEN [facility] Address: [address] [place], [place] [address]Performed By: #### 07302-3 #### [facility] CLIA [id number] [address] [place] [address] [place] AMERICAChloride [Moles/Vol]95 mmol/QQjv40-553 Palmer HospitalComment on above:Order Comment: Specimen Type: BLOOD SPECIMEN [facility] Address: [address] [place], [place] [address]Performed By: #### 23711-5 #### [facility] CLIA [id number] [address] [place] [address] [place] OF AMERICACO2 [Moles/Vol]36 mmol/NChcr85-89Fhslfe HospitalComment on above:Order Comment: Specimen Type: BLOOD SPECIMEN [facility] Address: [address] [place], [place] [address]Performed By: #### 60031-5 #### [facility] CLIA [id number] [address] [place] [address] [place] AMERICACreatinine [Mass/Vol]0.37 mg/dLLow 0.58-0.96Palmer HospitalComment on above:Order Comment: Specimen Type: BLOOD SPECIMEN [facility] Address: [address] [place], [place] [address]Performed By: #### 21610-7 #### [facility] CLIA [id number] [address] [place] [address] [place] AMERICACreatinine and Glomerular filtration rate.predicted panel (S/P/Bld)114 mL/min/1.73m???Normal>=60[facility] Comment on above:Order Comment: Specimen Type: BLOOD SPECIMEN [facility] Address: [address] [place], [place] [address]Result Comment: Estimated Glomerular Filtration Rate (eGFR) is calculated using the 2020 CKD-EPI cre atinine equation. This equation utilizes serum creatinine, sex, and age as parameters. The creatinine assay has traceable calibration to isotope dilution- mass spectrometry. Refer to KDIGO guidelines for clinical interpretation. In patients with unstable renal function, e.g. those with acute kidney injury, the eGFR may not accurately reflect actual GFR.Performed By: #### 15327-7 #### [facility] CLIA [id number] [address] [place] [address] [place] AMERICAGlucose [Mass/Vol]200 mg/kITxxl38-73 Palmer HospitalComment on above:Order Comment: Specimen Type: BLOOD SPECIMEN [facility] Address: [address] [place], [place] [address]Result Comment: The [place] Diabetes Association (ADA) provides guidance for cutoff [...] Standards of Medical Care in Diabetes 2016, [place] Diabetes Association. Diabetes Care. 2016.39(Suppl 1).Performed By: #### 88641-8 #### [facility] CLIA [id number] [address] [place] [address] [place] AMERICAPotassium [Moles/Vol]3.9 mmol/LNormal 3.7-5.1Mchicago HospitalComment on above:Order Comment: Specimen Type: BLOOD SPECIMEN [facility] Address: [address] [place], [place] [address]Performed By: #### 02829-5 #### [facility] CLIA [id number] [address] [place] [address] [place] AMERICASodium [Moles/Vol]139 mmol/LNormal 136-144Palmer HospitalComment on above:Order Comment: Specimen Type: BLOOD SPECIMEN [facility] Address: [address] [place], [place] [address]Performed By: #### 46942-9 #### [facility] CLIA [id number] [address] [place] [address] [place] AMERICAUrea nitrogen [Mass/Vol]8 mg/dLNormal 7-21Palmer HospitalComment on above:Order Comment: Specimen Type: BLOOD SPECIMEN [facility] Address: [address] [place], [place] [address]Performed By: #### 72756-3 #### [facility] CLIA [id number] [address] OF [facility] Auto Differential panel (Bld)on 54-40-5463Mgldbwrgi (Bld) [#/Vol]NINFCuk healthcare ClinicBasophils/100 WBC (Bld)0.2 %[facility] CenterDifferential cell count method Nom (Bld)AutoClevelCoshocton Regional Medical Center Eosinophils (Bld) [#/Vol]NINFClevelCoshocton Regional Medical CenterEosinophils/100 WBC (Bld)0.4 % [facility] CenterErythrocyte distribution width (RBC) [Ratio]12.8 %11.5 - 15.0 % [facility] CenterHematocrit (Bld) [Volume fraction]40.3 %36.0 - 46.0 %[facility] CenterHemoglobin (Bld) [Mass/Vol]12.4 g/dL11.5 - 15.5 g/dLOhiohealth Grant Medical Center Immature granulocytes (Bld) [#/Vol]NINFCOhio State University Wexner Medical CenterImmature granulocytes/100 WBC (Bld)0.2 %[facility] CenterInterpretation and review of laboratory results AbnormalOhiohealth Grant Medical CenterLymphocytes (Bld) [#/Vol]0.31 10*3/uLLowOhiohealth Grant Medical Center Lymphocytes/100 WBC (Bld)6.0 %[facility] Medical CenterH (RBC) [Entitic mass]26.4 pg 26.0 - 34.0 pgCAultman HospitalHC (RBC) [Mass/Vol]30.8 g/dL30.5 - 36.0 g/dL [facility] Medical CenterV (RBC) [Entitic vol]85.9 fL80.0 - 100.0 fLCOhio State University Wexner Medical Center Monocytes (Bld) [#/Vol]0.06 10*3/uLNINFOhiohealth Grant Medical CenterMonocytes/100 WBC (Bld) 1.2 %[facility] Medical CenterNeutrophils (Bld) [#/Vol]4.76 10*3/uLOhiohealth Grant Medical Center Neutrophils/100 WBC (Bld)92.0 %[facility] CenterNucleated RBC (Bld) [#/Vol]NINF [facility] CenterNucleated RBC/100 WBC (Bld) [Ratio]0.0 %/100 WBCOhiohealth Grant Medical Center Platelet mean volume (Bld) [Entitic vol]9.0 fL9.0 - 12.7 [facility] Platelets (Bld) [#/Vol]286 10*3/[facility] TownshipRBC (Bld) [#/Vol]4.69 10*6/uL 3.90 - 5.20 m/[facility] TownshipWBC (Bld) [#/Vol]5.17 10*3/[facility]ger HospitalBasophils (Bld) [#/Vol]10*3/uLNormal<0.11Medina HospitalComment on above:Order Comment: Specimen Type: BLOOD SPECIMEN [facility] Address: [address] [place], [place] [address]Performed By: #### 51788-7 #### [facility] CLIA [id number] [address] [place] [id number] [place] AMERICABasophils/100 WBC (Bld)0.2 %Normal Palmer HospitalComment on above:Order Comment: Specimen Type: BLOOD SPECIMEN [facility] Address: [address] [place], [place] [address]Performed By: #### 22562-0 #### [facility] CLIA [id number] [address] [place] [address] [place] AMERICADifferential cell count method Nom (Bld)AutoNormalPalmer HospitalComment on above:Order Comment: Specimen Type: BLOOD SPECIMEN [facility] Address: [address] [place], [place] [address]Performed By: #### 03694-0 #### [facility] CLIA [id number] [address] [place] [address] [place] AMERICAEosinophils (Bld) [#/Vol]10*3/uLNormal <0.46Medina HospitalComment on above:Order Comment: Specimen Type: BLOOD SPECIMEN [facility] Address: [address] [place], [place] [address]Performed By: #### 23978-2 #### [facility] CLIA [id number] [address] [place] [id number] [place] AMERICAEosinophils/100 WBC (Bld)0.4 %Normal Palmer HospitalComment on above:Order Comment: Specimen Type: BLOOD SPECIMEN [facility] Address: [address] [place], [place] [address]Performed By: #### 66985-4 #### [facility] CLIA [id number] [address] [place] [address] [place] AMERICAErythrocyte distribution width (RBC) [Ratio]12.8 %Dvtwru16.5-15.0Palmer HospitalComment on above:Order Comment: Specimen Type: BLOOD SPECIMEN [facility] Address: [address] [place], [place] [address]Performed By: #### 62421-8 #### [facility] CLIA [id number] [address] [place] [address] [place] AMERICAHematocrit (Bld) [Volume fraction]40.3 %Hesnen42.0-46.0Palmer HospitalComment on above:Order Comment: Specimen Type: BLOOD SPECIMEN [facility] Address: [address] [place], [place] [address]Performed By: #### 95009-7 #### [facility] CLIA [id number] [address] [place] [address] [place] AMERICAHemoglobin (Bld) [Mass/Vol]12.4 g/dL Aniaiu53.5-15.5Palmer HospitalComment on above:Order Comment: Specimen Type: BLOOD SPECIMEN [facility] Address: [address] [place], [place] [address]Performed By: #### 53333-1 #### [facility] CLIA [id number] [address] [place] [address] [place] AMERICAImmature granulocytes (Bld) [#/Vol] 10*3/uLNormal<0.10Palmer HospitalComment on above:Order Comment: Specimen Type: BLOOD SPECIMEN [facility] Address: [address] [place], [place] [address]Performed By: #### 63407-8 #### [facility] CLIA [id number] [address] [place] [address] [place] AMERICAImmature granulocytes/100 WBC (Bld)0.2 %NormalPalmer HospitalComment on above:Order Comment: Specimen Type: BLOOD SPECIMEN [facility] Address: [address] [place], [place] [address]Performed By: #### 22862-3 #### [facility] CLIA [id number] [address] [place] [address] [place] AMERICALymphocytes (Bld) [#/Vol]0.31 10*3/uL Low1.00-4.00Palmer HospitalComment on above:Order Comment: Specimen Type: BLOOD SPECIMEN [facility] Address: [address] [place], [place] [address]Performed By: #### 20502-4 #### [facility] CLIA [id number] [address] STATES AMERICALymphocytes/100 WBC (Bld)6.0 %Normal Palmer HospitalComment on above:Order Comment: Specimen Type: BLOOD SPECIMEN [facility] Address: [address] [place], [place] [address]Performed By: #### 21565-5 #### [facility] CLIA [id number] [address] (RBC) [Entitic mass]26.4 pgNormal 26.0-34.0Palmer HospitalComment on above:Order Comment: Specimen Type: BLOOD SPECIMEN [facility] Address: [address] [place], [place] [address]Performed By: #### 78810-9 #### [facility] CLIA [id number] [address] (RBC) [Mass/Vol]30.8 g/dLNormal 30.5-36.0Palmer HospitalComment on above:Order Comment: Specimen Type: BLOOD SPECIMEN [facility] Address: [address] [place], [place] [address]Performed By: #### 82629-5 #### [facility] CLIA [id number] [address] [place] [address] [place] AMERICAMCV (RBC) [Entitic vol]85.9 fLNormal 80.0-100.0Medina HospitalComment on above:Order Comment: Specimen Type: BLOOD SPECIMEN [facility] Address: [address] [place], [place] [address]Performed By: #### 85857-2 #### [facility] CLIA [id number] [address] [place] [address] [place] AMERICAMonocytes (Bld) [#/Vol]0.06 10*3/uL Normal<0.87Medina HospitalComment on above:Order Comment: Specimen Type: BLOOD SPECIMEN [facility] Address: [address] [place], [place] [address]Performed By: #### 30468-3 #### [facility] CLIA [id number] [address] [place] [address] [place] AMERICAMonocytes/100 WBC (Bld)1.2 %Normal Palmer HospitalComment on above:Order Comment: Specimen Type: BLOOD SPECIMEN [facility] Address: [address] [place], [place] [address]Performed By: #### 62443-1 #### [facility] CLIA [id number] [address] [place] [address] [place] AMERICANeutrophils (Bld) [#/Vol]4.76 10*3/uL Normal1.45-7.50Palmer HospitalComment on above:Order Comment: Specimen Type: BLOOD SPECIMEN [facility] Address: [address] [place], [place] [address]Performed By: #### 00773-7 #### [facility] CLIA [id number] [address] [place] [address] [place] AMERICANeutrophils/100 WBC (Bld)92.0 %Normal Palmer HospitalComment on above:Order Comment: Specimen Type: BLOOD SPECIMEN [facility] Address: [address] [place], [place] [address]Performed By: #### 86732-8 #### [facility] CLIA [id number] [address] [place] [address] [place] AMERICANucleated RBC (Bld) [#/Vol]10*3/uL Normal<0.01Medina HospitalComment on above:Order Comment: Specimen Type: BLOOD SPECIMEN [facility] Address: [address] [place], [place] [address]Performed By: #### 74208-9 #### [facility] CLIA [id number] [address] [place] [address] [place] AMERICANucleated RBC/100 WBC (Bld) [Ratio]0.0 /100 WBCNormalMedina HospitalComment on above:Order Comment: Specimen Type: BLOOD SPECIMEN [facility] Address: [address] [place], [place] [address]Performed By: #### 29854-8 #### [facility] CLIA [id number] [address] [place] [address] [place] AMERICAPlatelet mean volume (Bld) [Entitic vol]9.0 fLNormal9.0-12.7Medina HospitalComment on above:Order Comment: Specimen Type: BLOOD SPECIMEN [facility] Address: [address] [place], [place] [address]Performed By: #### 09070-9 #### [facility] CLIA [id number] [address] [place] [address] [place] AMERICAPlatelets (Bld) [#/Vol]286 10*3/uL Xsbutp155-555Jhyiko HospitalComment on above:Order Comment: Specimen Type: BLOOD SPECIMEN [facility] Address: [address] [place], [place] [address]Performed By: #### 57055-7 #### [facility] CLIA [id number] [address] [place] [address] [place] AMERICARBC (Bld) [#/Vol]4.69 10*6/uLNormal 3.90-5.20[facility] Systemna HospitalComment on above:Order Comment: Specimen Type: BLOOD SPECIMEN [facility] Address: [address] [place], [place] [address]Performed By: #### 71335-5 #### [facility] CLIA [id number] [address] [place] [address] [place] AMERICAWBC (Bld) [#/Vol]5.17 10*3/uLNormal 3.70-11.00[facility], IncComment on above:Order Comment: Specimen Type: BLOOD SPECIMEN [facility] Address: [address] [place], [place] [address]Performed By: #### 52279-3 #### [facility] CLIA [id number] [address] [place] [id number] [facility] AMERICAECG COMPLETEon 75-70-8453XUP COMPLETE Ventricular Rate : 115 BPM Atrial Rate : 115 BPM P-R Interval : 158 ms QRS Duration : 74 ms Q-T Interval : 312 ms QTC Calculation(Bazett) : 431 ms Calculated P [place] : 94 degrees Calculated R [place] : 84 degrees Calculated T [place] : 88 degrees SINUS TACHYCARDIA RIGHT ATRIAL ENLARGEMENT MINIMAL VOLTAGE CRITERIA FOR LVH, MAY BE NORMAL VARIANT BORDERLINE ECG NO PREVIOUS ECGS AVAILABLE Confirmed by MD BLAND GREGORY () on 11/18/2023 7:35:32 AM NAME : CINTHIA GUERRERO PID : [id number] : 1960 Gender : Female Race : ORD : [id number] Procedure Date : Nov 17 2023 14:38:04 Edit Date : Nov 18 2023 07:35:34 Diagnosis: SINUS TACHYCARDIA RIGHT ATRIAL ENLARGEMENT MINIMAL VOLTAGE CRITERIA FOR LVH, MAY BE NORMAL VARIANT BORDERLINE ECG NO PREVIOUS ECGS AVAILABLE Confirmed by MD BLAND GREGORY () on 11/18/2023 7:35:32 AM Test Reason : [facility] Location : : [facility] Overread By : MD BLAND GREGORY Edited By : MD BLAND GREGORY Referred By : TEO CRAFT Acquired by : Ermias JUNIORSelect Medical Specialty Hospital [facility] Board[facility], IncHISTORY PHYSICALon [id number] PHYSICALHNO ID: [id number] Author: BRIE KAUR PA-C Service: ? Author Type: Physician Ob Scrub Tech Type: H&P Filed: 11/17/2023 15:34 Note Text: [...] via NC. Follows with outside pulm at [facility], Dr. Valery DAVIS in October per pt. Diminished breath sounds bilaterally throughout, no wheezing. SpO2 95% on 2L O2. 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 Pt reports she called button attaching machine operator's office because she felt like her [...] large neck Non-male patient STOP-Bang Score: 1 [id number]-TYHw Score: Age: <65 Sex: female CHF history: No Hypertension history: No Stroke/TIA/thromboembolism history: No Vascular disease history: No Diabetes history: No [id number]-BVNr Score: 1 ANESTHESIA FINDINGS: Intubation History: No [...] Initiated: Orders placed by surgeon/surgical service in [facility]. Orders Placed This Encounter Complete Blood [...] (Left) at the request of Dr. Teo rCaft for consultation. My final recommendation will be [...] surgery currently 12/16/23 i (more content not included)...[facility] 24-07-6407GTWLQisxrpkgy (RADTSA) CINTHIA GUERRERO ([id number]) 1960 F Date Time Provider Department 11/16/23 [...] 11/16/2023 5:41 PM Signed Spoke with Ms. Chanton ... Will plan for a CT chest [...] lung (HCC) [C34.90] Order(s):NM PET/CT SKULL-THIGH SUBSEQUENT [6381019] Order #: [id number] FUTURE CT CHEST W IVCON [[id number]] Order #: [id number] FUTURE [] iv contrast (will be provided [...] link. Encounter Status:Closed by SILVIA JHA on 12/09/23[facility] 49-21-8841RCVUZylacr Visit (OTOLMN) CINTHIA GUERRERO ([id number]) 1960 F Date Time Provider Department 10/27/23 [...] HISTORY 1972: APPENDECTOMY No date: BRONCHOSCOPY Comment: 2022: SNGL 2011: COLONOSCOPY Current Outpatient Medications Medication [...] all divisions IX, X: (more content not included)...[facility] NECK (POC) HNI USE ONLYon 46-00-5290Neymubeow ClinicRadiology Study observation (narrative)[facility] CenterCNPNon 75-45-4324IBPTVomisdgco (NCCAP) CINTHIA GUERRERO ([id number]) 1960 F Date Time Provider Department 09/21/23 ABDI ISRAEL During your visit today, we recorded the following information about you: Rodney Rinaldi 09/21/2023 7:17 AM Signed Abdi Israel MD Stock, Khushboo Linda MD, Cc: Julisa Pressley LPN; Silvia Jha, LUCIE; Rodney Rinaldi Ma Dr. Mcintyre - I appreciate the update and the context for the pathology results. Rashid/Rebel/Rosalina - please refer Ms. Guerrero to Dr. [...] Mchugh Angela, RN 09/24/2023 3:33 PM Signed Rosalina- Dr Israel signed ENT order for Dr [...] Fully Assessed Reason for Visit: Appointment Confirmation [3505] Primary Visit Diagnosis:Non-small cell cancer of left lung (HCC) [C34.92] Other Visit Diagnosis: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) [C77.0] Order(s):BIOPSY/REMOVAL, LYMPH NODE(S) [75750GKF] Order #: [id number] CONSULT TO ENT [9008] Order #: [id number]: 1 FUTURE Prescriptions as of 09/30/2023 - [...] [C34.9*04/07/2018 Encounter Status:Closed by RODNEY RINALDI on 09/30/23[facility] OP NOTon [id number] OP NOTHNO ID: [id number] Author: KHUSHBOO MCINTYRE MD Service: Radiology Author Type: Physician Type: Brief Op Note Filed: 09/16/2023 11:09 Note Text: Summary: Left cervical lymph node biopsy BRIEF OPERATIVE / PROCEDURE NOTE LOG ID: [id number] SURGERY/PROCEDURE DATE: 09/16/2023 INCISION/PROCEDURE START TIME: 10:42 AM INCISION CLOSE/PROCEDURE END TIME: 11:02 AM SURGEON(S)/PROCEDURALIST(S) AND PULP MAKING PLANT OPERATOR(S): Surgeon(s) and Role: * Khushboo Mcintyre MD, [...] Guerrero DATE: September 16, 2023 TIME: 11:06 AMNormalSumma Health Wadsworth - Rittman Medical CenterNURSING PROGon [id number] ROMULO ID: [id number] Author: YAKELIN REILLY, LUCIE Service: ? Author Type: Registered Nurse Type: Nursing Progress Note Filed: 09/17/2023 08:20 Note Text: Completed post procedure phone call. Omaira is feeling well and has returned to her baseline diet and activity. Omaira denies questions or concerns related to her biopsy appointment on 09/16/23 and had no surgical site concerns.NormalSumma Health Wadsworth - Rittman Medical CenterPT EDon 70-17-5027MG EDHNO ID: [id number] Author: RASHID HOWELL RN Service: ? Author [...] Signed By: Rashid Howell RN In Department: [facility] EC73Fucecu [facility] Rittman Medical CenterSURGICAL PATHOLOGYon 46-07-8813QPSY REPORTNoal [facility] on above:Order Comment: Specimen Type: TISSUE SPECIMENOrdering Facility: [facility] Address: [address] [place], [place] [address]Result Comment: Surgical Pathology Report Case: [id number] Authorizing Provider: Khushboo Mcintyre MD, Collected: 09/16/2023 10:48 AM Ordering Location: [place] [address] Received: 09/16/2023 04:42 PM Pathologist: Tucker Mulligan V, MD Specimen: Lymph Node, Biopsy, left level 5Performed By: #### S ####[facility] LABIA [id number] [place] [address] [place] OF AMERICACLINICAL HISTORYhistory of lung caNormalMount St. Mary Hospital on above:Order Comment: Specimen Type: TISSUE SPECIMENOrdering Facility: [facility] Address: [address] [place], [place] [address]Performed By: #### S ####[facility] LABIA [id number] [place] [address] [place] AMERICADIAGNOSIS COMMENTNoSelect Medical Specialty Hospital [facility] on above:Order Comment: Specimen Type: TISSUE SPECIMENOrdering Facility: [facility] Address: [address] [place] [id number] Comment: Immunohistochemical stains were performed to evaluate the lymphoid tissue, composedof a mix population of B (CD20 positive) and T (CD3 positive) lymphocytes and exclude the presence of carcinoma (cytokeratin CAM5.2 and cytokeratin AE1/AE3 negative). No granulomas or neoplasm are present. Laboratory Developed Test (LDT) Disclaimer: Performance characteristics of immunohistochemical, immunofluorescent and chromogenic in-situ hybridization tests have been determined by the performing laboratory within [facility]???s Adarsh Arian [facility] Pathology and Laboratory Medicine Department ([facility], [facility], [facility], [facility], [facility], [facility], or [facility]) in a manner consistent with CLIA requirements. One or more of these tests havenot been cleared or approved by the FDA. RT-PLM is regulated under CLIA as qualified to perform high-complexity testing. These tests are used for clinical purposes. They should not be regarded as investigational or for research. Positive and negative controls stain appropriately.Performed By: #### S ####[facility] LABCLIA [id number] [address] OF [facility] FINAL DIAGNOSISNoSelect Medical Specialty Hospital - [facility] on above:Order Comment: Specimen Type: TISSUE SPECIMENOrdering Facility: [facility] Address: [address] [place], [place] [address]Mgobta Comment: Lymph node, left level 5, biopsy: - Fragments of lymphoid tissue; negative for neoplasm (see comment). MD/ 09/17/2023 Performed By: #### S ####[facility] LABCLIA [id number] [address] [facility] CENTERFINAL PERFORMING LAB NormalMount St. Mary Hospital on above:Order Comment: Specimen Type: TISSUE SPECIMENOrdering Facility: [facility] Address: [address] [place] [address]Xxxsbq Comment: Diagnostic interpretation performed at [facility], [address] [place] [address] CLIA# [id number] Plumber Gasfitter: Axel Romano M.D.Performed By: #### S ####[facility] LABIA [id number] [place] [id number] [place] OF [facility] MEDICAL CENTERGROSS DESCRIPTIONNormalCMercy Health Lorain Hospital Comment on above:Order Comment: Specimen Type: TISSUE SPECIMENOrdering Facility: [facility] Address: [address] [place], [place] [address]Result Comment: A. Lymph Node, Biopsy Received in formalin are multiple segments of cylindrical tissue 1.3 x 0.2 x 0.1 cm, carcamo and of a soft and friable consistency. Totally submitted in one cassette. Gross examination performed at [address] September 16, 2023 7:23 PMPerformed By: #### S ####[facility] LABIA [id number] [place] [id number] [place] OF AMERICAUS BIOPSY CERVICAL LYMPH NODEon 05-31-9246PD BIOPSY CERVICAL LYMPH NODE* * *Final Report* * * DATE OF EXAM: Sep 16 2023 2:45PM [facility] - BIOPSY CERVICAL LYMPH NODE / PROCEDURE REASON: [...] lung cancer. STAFF RADIOLOGIST: Dr. Lopez Mcintyre PULP MAKING PLANT OPERATOR(S): None CONSENT: Informed consent was obtained for this procedure. Details of informed consent can be found in [facility] under the consent tab. TIME OUT: [...] performed by the: attending radiologist, without an pediatric dental assistant. The attending radiologist performed the following [...] IMPRESSION: ULTRASOUND GUIDED BIOPSY DESCRIBED v 05/25/18 Package Dyeing Machine Operator: [facility] Transcribe Date/Time: Sep 16 2023 4:33P Dictated by : KHUSHBOO MCINTYRE MD This examination was interpreted and the report reviewed and electronically signed by: KHUSHBOO MCINTYRE MD on Sep 20 2023 4:11PM EST [id number] Health Wadsworth - Rittman Medical CenterCB panel Auto (Bld)on 22-85-4131Nwicmsocwbv distribution width (RBC) [Ratio]13.2 %Czgicn84.5-15.[address] [facility] on above:Order Comment: Specimen Type: BLOOD SPECIMENOrdering Facility: [facility] Address:[address] H[facility]PITALSHANA [place], [place] [address]Eqawxfzap By: #### 69293-7 ####[facility] LABCLIA [id number] [place], [place] [address]Vmzilmnmqc (Bld) [Volume fraction]38.5 %Cirkcq29.0-46.0[facility] on above:Order Comment: Specimen Type: BLOOD SPECIMENOrdering Facility: [facility] Address:[address] [place], [place] [address]Performed By: #### 55535-9 ####[facility] LABIA [id number] [place], [place] [address]Bdokzmzyhc (Bld) [Mass/Vol]11.8 g/tQKpyihb48.5-15.[address] [facility] on above:Order Comment: Specimen Type: BLOOD SPECIMENOrdering Facility: [facility] Address:[address] [place], [place] [address]Performed By: #### 02622-6 ####[facility] LABIA [id number] [place], [place] [address]OHT (RBC) [Entitic mass]27.2 [address]Nkevmd46.0-34.0[facility] on above: Order Comment: Specimen Type: BLOOD SPECIMENOrdering Facility: [facility] Address:[address] [place], [place] [address]Performed By: #### 12512- 2 ####[facility] LABIA [id number] [place], [place] [address]WYXN (RBC) [Mass/Vol]30.6 g/tJXqcvnw57.5-36.0[facility] on above:Order Comment: Specimen Type: BLOOD SPECIMENOrdering Facility: [facility] Address:[address] [place], [place] [address]Performed By: #### 78809-7 ####[facility] LABIA [id number] [place], [place] [address]VTJ (RBC) [Entitic vol]88.[address]qzu68.0-100.0[facility] on above: Order Comment: Specimen Type: BLOOD SPECIMENOrdering Facility: [facility] Address:[address] [place], [place] [address]Performed By: #### 33615- 2 ####[facility] LABCLIA [id number] [place], [place] [address]Okozhwsea RBC (Bld) [#/Vol]10*3/uLNormal<0.01[facility] on above:Order Comment: Specimen Type: BLOOD SPECIMENOrdering Facility: [facility] Address:[address] [place], [place] [address]Performed By: #### 72267-0 ####[facility] LABCLIA [id number] [place], [place] [address]Pbogolft mean volume (Bld) [Entitic vol]8.9 fLLow9.0-12.7CKettering Health [facility] on above:Order Comment: Specimen Type: BLOOD SPECIMENOrdering Facility: [facility] Address:[address] [place], [place] [address]Performed By: #### 85881-2 ####[facility] LABCLIA [id number] [place], [place] [address]Nvirjfezg (Bld) [#/Vol]288 10*3/nNVtpcfs875-178OvuektxzwMount St. Mary Hospital on above:Order Comment: Specimen Type: BLOOD SPECIMENOrdering Facility: [facility] Address:[address] [place], [place] [address]Performed By: #### 50117-3 ####[facility] LABCLIA [id number] [place], [place] [address]TXN (Bld) [#/Vol]4.34 10*6/uLNormal3.90-5.20[facility] on above: Order Comment: Specimen Type: BLOOD SPECIMENOrdering Facility: [facility] Address:[address] [place], [place] [address]Performed By: #### 38985- 2 ####[facility] LABCLIA [id number] [place], [place] [address]PCK (Bld) [#/Vol]7.28 10*3/uLNormal3.70-11.00[facility] Rittman Medical CenterComment on above:Order Comment: Specimen Type: BLOOD SPECIMENOrdering Facility: [facility] Address:[address] [place], [place] [address]Mbhdqvkdw By: #### 94996-3 ####[facility] LABCLIA [id number] [place], [place] [address]MYFHDAX PROGon 22-68-3591DAXGFYT PROGHNO ID: [id number] Author: YAKELIN ONOFRE LPN Service: ? Author Type: LICENSED NURSE Type: Nursing Progress Note Filed: 09/14/2023 10:55 Note Text: Pre- e instructions: Address: [place] Contacted patient and confirmed appt. for biopsy scheduled on 09/16/23, at [facility]. Diet: Procedure to be done with local anesthetic, you may eat, drink and take medications as prescribed the day of this procedure. Medications: IF ok with your Prescribing Provider: RADIOLOGY RECOMMENDS THESE MEDICATION RESTRICTIONS : None Labs: Lab work needs to be drawn by 09/15/23 at any [facility] Lab. Arrival: Please bring your Photo ID and Insurance Card. A general consent may need to be signed. Arrival at 8:30am to desk QB-1 ([facility]) and check in for your procedure. Senior Mainframe Developer/Transportation: Senior Mainframe Developer not necessary Written instructions provided to patient via Pictorious If you have any questions please call [phone] Clinic Fairview HospitalCNPNon 07-53-3782SCRBDfoeytnbo (IRRFV) CINTHIA GUERRERO ([id number]) 1960 F Date Time Provider Department 09/08/23 ABDI ISRAEL IRRFV During your visit today, we recorded the following information about you: Chloe Nicole 09/08/2023 10:45 AM Signed RADIOLOGY CALL CENTER INTAKE DATE: 09/08/2023 TIME: 10:44am REQUESTING STAFF: Abdi Israel MD PHONE/PAGER: [phone] SPECIFICS OF THE REQUEST:Cervical lymph node bx SPECIAL REQUESTS: TISSUE SAMPLE, LABWORK: N/A IS THIS REQUEST PART OF A RESEARCH PROTOCOL: No MEDICAL DIAGNOSIS: Malignant neoplasm of unspecified part of unspecified bronchus or lung (HCC) [C34.90] TYPE AND DATE OF THE EXAM THAT IS THE BASIS OF THE REQUEST: PET 09/01/2023 IMAGING: [facility] Note to all persons requesting biopsies: All biopsy requests will be scheduled as quickly as possible, based on the clinical urgency, availability of appointment times, the need to hold anti-thrombolytic therapy (aspirin, blood thinners) and the patient?s schedule, including the need for an available patrol driver. If a percutaneous biopsy or drainage [...] for this procedure: intermediate-high risk. Reference from [facility] University Manager: [email or web address] STAFF SIGNATURE: Osito Galicia MD DATE: September [...] solution PEDIATRIC ASTHMA Inhale (more content not included)...[facility] ([facility]) CINTHIA GUERRERO ([id number]) 1960 F Date Time Provider Department 09/08/23 ABDI ISRAEL During your visit today, we recorded the following information about you: Rodney Rinaldi 09/08/2023 7:24 AM Signed Abdi Israel MD Graves, Ariana, LPN Cc: Silvia Jha RN; Rodney Rinaldi Please set Ms. Guerrero up for an US guided biopsy of one of the lymph nodes in the neck seen on PET CT at either [facility] or [facility]. Thanks! Abdi Nicolas MD 09/08/2023 9:51 AM [...] [C34.9*04/07/2018 Encounter Status:Closed by RODNEY RINALDI on 09/14/23[facility]+CT Guidance for localization of tumor of Skull base to mid-thigh-- W 18F-FDG Angelita 30-93-5375NGTKPBFMNC: HEAD/NECK: * Few hypermetabolic left lower cervical/supraclavicular [...] any questions regarding this interpretation, please call [phone]. If you are unable to reach us at the number above, please feel free to contact [facility] at [phone].DIVISION OF RADIOLOGY* * *Final Report* * * DATE OF [...] * Radiopharmaceutical Dose: 6.6 mCi * Radiopharmaceutical: Z60-Wnvwvinyqvpshtjzab (FDG) COMPARISON: PET/CT 03/07/2022 CORRELATION: CT 08/13/23 RESULT: REFERENCES: SUV reference values: * Blood pool (descending aorta) activity: SUVmax 1.8 * Background liver activity: SUVmax 2.2; SUVmean 1.6 Surgical Services Tech (topogram) images: No additional findings Notes and limitations: * Standardized uptake values indicate the highest activity concentration (SUVmax) at a given location but can be variable and are not absolute. * Physiologic/non-neoplastic uptake is common in the brain, extraocular [...] & Lymph Nodes: Few hypermetabolic left lower cervical/supraclavicular lymph nodes measuring up to 1.2 cm [...] Soft Tissues: No abnormal uptake. DIVISION OF RADIOLOGYProvider, [facility] [place] - 09/05/2023 * * *Final Report* * [...] * Radiopharmaceutical Dose: 6.6 mCi * Radiopharmaceutical: C67-Rjlvrvhxcnpokudcrw (FDG) COMPARISON: PET/CT 03/07/2022 CORRELATION: CT 08/13/23 RESULT: REFERENCES: SUV reference values: * Blood pool (descending aorta) activity: SUVmax 1.8 * Background liver activity: SUVmax 2.2; SUVmean 1.6 Surgical Services Tech (topogram) images: No additional findings Notes and limitations: * Standardized uptake values indicate the highest activity concentration (SUVmax) at a given location but can be variable and are not absolute. * Physiologic/non-neoplastic uptake is common in the brain, extraocular [...] & Lymph Nodes: Few hypermetabolic left lower cervical/supraclavicular lymph nodes measuring up to 1.2 cm [...] any questions regarding this interpretation, please call [phone]. If you are unable to reach us at the number above, please feel free to contact [facility] eRadiology at [phone]. [facility] CenterPET+CT Guidance for localization of tumor of Skull base to mid-thigh-- W 18F-FDG IVOrdered By: Ccf Provider on 58-76-8283Qrwdkwhkd Clinic CONSULT PROGon 77-83-3280QRRALAP PROGHNO ID: [id number] Author: STACIA IRVING RN Service: ? Author [...] Guerrero DATE: September 01, 2023 TIME: 12:54 PMNormalSumma Health Wadsworth - Rittman Medical CenterGLUCOSE, BLOOD (POC)on 09-01-2023 Glucose [Mass/Vol]95 mg/dL74 - 99 mg/dLOhiohealth Grant Medical CenterComment on above: Location:[facility], [address] [place] [address] [place], [place], [address] The Accu-Chek Inform II glucose meter has [...] blood gas instrument) in the above situations. [facility] PET/CT SKULL-THIGH SUBQon [id number] PET/CT SKULL-THIGH SUBQ* * *Final Report* * * DATE OF [...] * Radiopharmaceutical Dose: 6.6 mCi * Radiopharmaceutical: T91-Yrpyobgldcsgxquplc (FDG) COMPARISON: PET/CT 03/07/2022 CORRELATION: CT 08/13/23 RESULT: REFERENCES: SUV reference values: * Blood pool (descending aorta) activity: SUVmax 1.8 * Background liver activity: SUVmax 2.2; SUVmean 1.6 Surgical Services Tech (topogram) images: No additional findings Notes and limitations: * Standardized uptake values indicate the highest activity concentration (SUVmax) at a given location but can be variable and are not absolute. * Physiologic/non-neoplastic uptake is common in the brain, extraocular [...] and Lymph Nodes: Few hypermetabolic left lower cervical/supraclavicular lymph nodes measuring up to 1.2 cm [...] any questions regarding this interpretation, please call [phone]. If you are unable to reach us at the number above, please feel free to contact [facility] at [phone]. [id number] Health Wadsworth - Rittman Medical CenterPE+CT Guidance for localization of tumor of Skull base to mid-thigh-- W 18F-FDG Angelita 09-01-2023 Radiology Study observation (narrative)[facility] CenterCNPNon [id number] Telephone (RADTSA) CESARCINTHIA ONTIVEROS ([id number]) 1960 F Date Time Provider Department 08/14/23 ABDI ISRAEL During your visit today, we recorded the following information about you: Silvia Jha RN 08/14/2023 9:34 AM Signed Pt called in to let us know she had a CT at [facility] ordered per Dr Kenyon yesterday. He called her today to let her know that there was something concerning and he wanted her to contact our office. CT report printed from [facility] and images requested. Dr Israel- please advise when you have had a chance to review. Thank you LUCIE Mchugh Saju, MD 08/17/2023 9:57 AM Signed Definite changes in the left chest from previous available scan in April. Ordered PET to further characterize findings and please request CT Chest images from 07/2023. Thanks! Silvia Britt, LUCIE 08/17/2023 1:01 PM Signed Scan from July [...] lung (HCC) [C34.90] Order(s):NM PET/CT SKULL-THIGH SUBSEQUENT [[id number]] Order #: [id number] FUTURE Prescriptions as of 08/18/2023 - iv [...] [C34.9*04/07/2018 Encounter Status:Closed by SILVIA JHA on 08/18/23[facility] Blood Count Auto Diffon [id number] (Bld) [#/Vol]0.0 10*3/uLNormal0.0-0.2The [facility] Physician GroupComment on above:Result Comment: PERFORMED BY: [place] [address] PATHOLOGIST TALENT RECRUITER JASMEET LIN M.D.Performed By: #### CMP, CBC, HS TROP, TSH3 wRFLX #### [place] [address] USABasophils/100 WBC (Bld)0.3 %Normal.The [facility] Physician GroupComment on above:Performed By: #### CMP, CBC, HS TROP, TSH3 wRFLX #### [place] [address] USAEosinophils (Bld) [#/Vol]0.0 10*3/uLNormal0.0-0.45The [facility] Physician GroupComment on above:Performed By: #### CMP, CBC, HS TROP, TSH3 wRFLX #### [place] [address] USAEosinophils/100 WBC (Bld)0.0 %Normal.The [facility] Physician GroupComment on above:Performed By: #### CMP, CBC, HS TROP, TSH3 wRFLX #### [place] [address] USAErythrocyte distribution width (RBC) [Ratio]13.5 %Normal 11.9-15.3The [facility] Physician GroupComment on above:Performed By: #### CMP, CBC, HS TROP, TSH3 wRFLX #### [place] [address] USAHematocrit (Bld) [Volume fraction]42.0 %Bddpen31.0-46.4The [facility] Physician GroupComment on above:Performed By: #### CMP, CBC, HS TROP, TSH3 wRFLX #### [place] [address] USAHemoglobin (Bld) [Mass/Vol]13.9 g/zYCubldm49.8-15.4The [facility] Physician GroupComment on above:Performed By: #### CMP, CBC, HS TROP, TSH3 wRFLX #### [place] [address] USALymphocytes (Bld) [#/Vol]0.6 10*3/uLLow1.00-4.8The [facility] Physician GroupComment on above:Performed By: #### CMP, CBC, HS TROP, TSH3 wRFLX #### [place] [address] USALymphocytes/100 WBC (Bld)8.4 %Normal.The [facility] Physician GroupComment on above:Performed By: #### CMP, CBC, HS TROP, TSH3 wRFLX #### [place] [address] USAMCH (RBC) [Entitic mass]28.0 rvVcjott12.7-34.3The [facility] Physician GroupComment on above:Performed By: #### CMP, CBC, HS TROP, TSH3 wRFLX #### [place] [address] USAMCV (RBC) [Entitic vol]84.8 nYRifhmn50-264Rcg [facility] Physician GroupComment on above:Performed By: #### CMP, CBC, HS TROP, TSH3 wRFLX #### [place] [address] USAMean Corpuscular HGB Conc33.0 g/rVQjbguv32.0-35.0The [facility] Physician GroupComment on above:Performed By: #### CMP, CBC, HS TROP, TSH3 wRFLX #### [place] [address] USAMonocytes (Bld) [#/Vol]0.4 10*3/uLNormal0.0-0.8The [facility] Physician GroupComment on above:Performed By: #### CMP, CBC, HS TROP, TSH3 wRFLX #### [facility] [address] [place] [address] USAMonocytes/100 WBC (Bld)4.9 %Normal.The [facility] Physician GroupComment on above:Performed By: #### CMP, CBC, HS TROP, TSH3 wRFLX #### [place] [address] USANeutrophils (Bld) [#/Vol]6.6 10*3/uLNormal1.8-7.7The [facility] Physician GroupComment on above:Performed By: #### CMP, CBC, HS TROP, TSH3 wRFLX #### [place] [address] USANeutrophils/100 WBC (Bld)86.4 %Normal.The [facility] Physician GroupComment on above:Performed By: #### CMP, CBC, HS TROP, TSH3 wRFLX #### [place] [address] USANRBC%0.0 /100{WBC}Normal0-0.5The [facility] Comment on above:Performed By: #### CMP, CBC, HS TROP, TSH3 wRFLX #### [place] [address] USAPlatelet mean volume (Bld) [Entitic vol]7.3 fLNormal 6.3-10.7The [facility] Physician GroupComment on above:Performed By: #### CMP, CBC, HS TROP, TSH3 wRFLX #### [place] [address] USAPlatelets (Bld) [#/Vol]378 10*3/qSNbosjk273-269Xgh [facility] Physician GroupComment on above:Performed By: #### CMP, CBC, HS TROP, TSH3 wRFLX #### [place] [address] USARBC (Bld) [#/Vol]4.95 10*6/uLNormal3.60-5.00The [facility] Physician GroupComment on above:Performed By: #### CMP, CBC, HS TROP, TSH3 wRFLX #### [facility] [address] [place] [address] USAWBC (Bld) [#/Vol]7.6 10*3/uLNormal3.8-11.6The [facility] Physician GroupComment on above:Performed By: #### CMP, CBC, HS TROP, TSH3 wRFLX #### [place] [address] USAComprehensive Metabolic Panelon 04-67-0864Rmzgdhc [Mass/Vol]4.0 g/dLNormal3.5-5.7The [facility] Physician GroupComment on above: Performed By: #### CMP, CBC, HS TROP, TSH3 wRFLX #### [place] [address] USAAlbumin/Globulin [Mass ratio]1.3 {ratio}NormalThe [facility] Physician GroupComment on above:Performed By: #### CMP, CBC, HS TROP, TSH3 wRFLX #### [place] [address] USAALP [Catalytic activity/Vol]68 U/YMpnain14-092Oeb [facility] Physician GroupComment on above:Performed By: #### CMP, CBC, HS TROP, TSH3 wRFLX #### [place] [address] USAALT [Catalytic activity/Vol]13 U/LNormal7-52The [facility] Physician GroupComment on above:Performed By: #### CMP, CBC, HS TROP, TSH3 wRFLX #### [facility] [address] [place] [address] USAAnion gap [Moles/Vol]6.9 mmol/LNormal6.0-15.0The [facility] Physician GroupComment on above:Performed By: #### CMP, CBC, HS TROP, TSH3 wRFLX #### [place] [address] USAAST [Catalytic activity/Vol]16 U/BHcuxst13-07Hto [facility] Physician GroupComment on above:Performed By: #### CMP, CBC, HS TROP, TSH3 wRFLX #### [facility] [address] [place] [address] USABilirubin [Mass/Vol]0.4 mg/dLNormal0.3-1.0The [facility] Physician GroupComment on above:Performed By: #### CMP, CBC, HS TROP, TSH3 wRFLX #### [place] [address] USACalcium [Mass/Vol]9.7 mg/dLNormal8.6-10.3The [facility] Physician GroupComment on above:Performed By: #### CMP, CBC, HS TROP, TSH3 wRFLX #### [place] [address] USAChloride [Moles/Vol]90 mmol/UIdd11-782Olm [facility] Physician GroupComment on above:Performed By: #### CMP, CBC, HS TROP, TSH3 wRFLX #### [place] [address] USACO2 [Moles/Vol]44.4 mmol/LHigh21.0-31.0The [facility] Physician GroupComment on above:Performed By: #### CMP, CBC, HS TROP, TSH3 wRFLX #### [place] [address] USACreatinine [Mass/Vol]0.48 mg/dLLow0.60-1.20The [facility] Physician GroupComment on above:Performed By: #### CMP, CBC, HS TROP, TSH3 wRFLX #### [place] [address] USACreatinine Clr Calc Hpwsgixn81.17NormalThe [facility] Physician GroupComment on above:Result Comment: PERFORMED BY: [place] [address] PATHOLOGIST TALENT RECRUITER JASMEET LIN M.D.Performed By: #### CMP, CBC, HS TROP, TSH3 wRFLX #### [address] [address] USAGFR/1.73 sq M.predicted MDRD (S/P/Bld) [Vol rate/Area] mL/min/{1.73_m2}NormalThe [facility] Physician GroupComment on above:Performed By: #### CMP, CBC, HS TROP, TSH3 wRFLX #### [facility] [address] [place] [address] USAGlobulin (S) [Mass/Vol]3.1 g/dLNormalThe [facility] Physician GroupComment on above:Performed By: #### CMP, CBC, HS TROP, TSH3 wRFLX #### [facility] [address] [place] [address] USAGlucose [Mass/Vol]148 mg/aQIgwi74-876Qib [facility] Physician GroupComment on above:Result Comment: Random Glucose Reference Range is dependent on time and content of last meal. Glucose of more than 200 mg/dL in a nonstressed, ambulatory subject supports the diagnosis of Diabetes Mellitus. ADA recommended reference rangePerformed By: #### CMP, CBC, HS TROP, TSH3 wRFLX #### [facility] [address] [place] [address] USAPotassium [Moles/Vol]4.3 mmol/LNormal3.5-5.1The [facility] Physician GroupComment on above:Performed By: #### CMP, CBC, HS TROP, TSH3 wRFLX #### [facility] [address] [place] [address] USAProtein [Mass/Vol]7.1 g/dLNormal6.4-8.9The [facility] Physician GroupComment on above:Performed By: #### CMP, CBC, HS TROP, TSH3 wRFLX #### [facility] [address] [place] [address] USASodium [Moles/Vol]137 mmol/BWizbet760-959Dpb [facility] Physician GroupComment on above:Performed By: #### CMP, CBC, HS TROP, TSH3 wRFLX #### [facility] [address] [place] [address] USAUrea nitrogen [Mass/Vol]13 mg/dLNormal7-25The [facility] Physician GroupComment on above:Performed By: #### CMP, CBC, HS TROP, TSH3 wRFLX #### [facility] [address] [place] [id number] USACT angio chest PE protocolon [id number] angio chest PE protocolRIVERVIEW HEALTH INSTITUTE [address] [place] [address] [place] [address] CT Scan Report Signed Patient: Cinthia Guerrero MR#: [id number] : 1960 Acct:[id number] Age/Sex: 62 / F ADM Date: 05/14/23 Loc: Room: [address] [place] [address] Type: ADM IN Attending Dr: Cassandra Andersen [...] M.D.05/14/2023 8:07 AM Dictation Location: [place] [address] Transcribed By: [facility] 05/14/23806 Dictated By: Wong Byrd DO 05/14/23 08 Signed By: 05/14/23 0807[facility] HospitalB-Type Natriuretic Peptideon 73-64-6256Gxckuoggtti peptide B (Bld) [Mass/Vol]25.0 pg/mLNormal5-100The [facility] Physician [facility] HospitalComment on above:Result Comment: PERFORMED BY: [place] [address] PATHOLOGIST TALENT RECRUITER JASMEET LIN M.D.Performed By: #### BNP #### [place] [address] USACOVID-19 / Flu A/B / RSV PCRon [id number]-CoV-2 (COVID-19) RNA KRUNAL+probe Ql (Unsp spec)COVID-19 Cepheid Result Negative for SARS-CoV-2 RNA by [...] or Cepheid Disclaimer revoked sooner. PERFORMED BY: [place] [address] PATHOLOGIST TALENT RECRUITER JASMEET LIN M.D.NormalThe [facility] Physician GroupComment on above:Performed By: #### CMP, CBC, HS TROP, TSH3 wRFLX #### [facility] [address] [place] [address] USACepheid COVID PCR Negativeon 65-47-2472NGPB-CoV-2 (COVID- 19) RNA KRUNAL+probe Ql (Unsp spec)NegativeNormalNegativeThe [facility] Physician GroupComment on above:Result Comment: This is a duplicate Cepheid Xpert Xpress CoV-2/Flu/RSV Plus RNA by RT-PCR result to be used for statistical tracking purpose only. PERFORMED BY: [place] [address] PATHOLOGIST TALENT RECRUITER JASMEET LIN M.D.Performed By: #### CMP, CBC, HS TROP, TSH3 wRFLX #### [address] [address] USAComplete Blood Count Auto Diffon 68-93-2087Hzwlbvsoh (Bld) [#/Vol]0.0 10*3/uLNormal0.0-0.2The [facility] Physician GroupComment on above: Result Comment: PERFORMED BY: [place] [address] PATHOLOGIST TALENT RECRUITER JASMEET LIN M.D.Performed By: #### CMP, CBC, HS TROP, TSH3 wRFLX #### [place] [address] USABasophils/100 WBC (Bld)0.4 %Normal.The [facility] Physician GroupComment on above:Performed By: #### CMP, CBC, HS TROP, TSH3 wRFLX #### [place] [address] USAEosinophils (Bld) [#/Vol]0.0 10*3/uLNormal0.0-0.45The [facility] Physician GroupComment on above:Performed By: #### CMP, CBC, HS TROP, TSH3 wRFLX #### [place] [address] USAEosinophils/100 WBC (Bld)0.1 %Normal.The [facility] Physician GroupComment on above:Performed By: #### CMP, CBC, HS TROP, TSH3 wRFLX #### [place] [address] USAErythrocyte distribution width (RBC) [Ratio]13.5 %Normal 11.9-15.3The [facility] Physician GroupComment on above:Performed By: #### CMP, CBC, HS TROP, TSH3 wRFLX #### [place] [address] USAHematocrit (Bld) [Volume fraction]44.7 %Ddyexo47.0-46.4The [facility] Physician GroupComment on above:Performed By: #### CMP, CBC, HS TROP, TSH3 wRFLX #### [place] [address] USAHemoglobin (Bld) [Mass/Vol]14.9 g/iRGuyvcb71.8-15.4The [facility] Physician GroupComment on above:Performed By: #### CMP, CBC, HS TROP, TSH3 wRFLX #### [place] [address] USALymphocytes (Bld) [#/Vol]1.4 10*3/uLNormal1.00-4.8The [facility] Physician GroupComment on above:Performed By: #### CMP, CBC, HS TROP, TSH3 wRFLX #### [place] [address] USALymphocytes/100 WBC (Bld)14.2 %Normal.The [facility] Physician GroupComment on above:Performed By: #### CMP, CBC, HS TROP, TSH3 wRFLX #### [address]H (RBC) [Entitic mass]28.4 vmSunfud12.7-34.3The [facility] Physician GroupComment on above:Performed By: #### CMP, CBC, HS TROP, TSH3 wRFLX #### [address]V (RBC) [Entitic vol]85.1 bRZpblqw39-900Htu [facility] Physician GroupComment on above:Performed By: #### CMP, CBC, HS TROP, TSH3 wRFLX #### [place] [address] USAMean Corpuscular HGB Conc33.4 g/lMOktask89.0-35.0The [facility] Physician GroupComment on above:Performed By: #### CMP, CBC, HS TROP, TSH3 wRFLX #### [place] [address] USAMonocytes (Bld) [#/Vol]0.8 10*3/uLNormal0.0-0.8The [facility] Physician GroupComment on above:Performed By: #### CMP, CBC, HS TROP, TSH3 wRFLX #### [place] [address] USAMonocytes/100 WBC (Bld)17.56 %Normal0.00-20.00The [facility] Physician GroupComment on above:Performed By: #### CMP, CBC, HS TROP, TSH3 wRFLX #### [facility] [address] [place] [address] USAMonocytes/100 WBC (Bld)7.6 %Normal.The [facility] Physician GroupComment on above:Performed By: #### CMP, CBC, HS TROP, TSH3 wRFLX #### [facility] [address] [place] [address] USANeutrophils (Bld) [#/Vol]7.9 10*3/uLHigh1.8-7.7The [facility] Physician GroupComment on above:Performed By: #### CMP, CBC, HS TROP, TSH3 wRFLX #### [place] [address] USANeutrophils/100 WBC (Bld)77.7 %Normal.The [facility] Physician GroupComment on above:Performed By: #### CMP, CBC, HS TROP, TSH3 wRFLX #### [place] [address] USANRBC%0.1 /100{WBC}Normal0-0.5The [facility] Comment on above:Performed By: #### CMP, CBC, HS TROP, TSH3 wRFLX #### [place] [address] USAPlatelet mean volume (Bld) [Entitic vol]7.4 fLNormal 6.3-10.7The [facility] Phys[facility] GroupComment on above:Performed By: #### CMP, CBC, HS TROP, TSH3 wRFLX #### [place] [address] USAPlatelets (Bld) [#/Vol]405 10*3/xSUonhse850-379Lmg [facility] GroupComment on above:Performed By: #### CMP, CBC, HS TROP, TSH3 wRFLX #### [place] [address] USARBC (Bld) [#/Vol]5.25 10*6/uLHigh3.60-5.00The [facility] Physician GroupComment on above:Performed By: #### CMP, CBC, HS TROP, TSH3 wRFLX #### [facility] [address] [place] [address] USAWBC (Bld) [#/Vol]10.2 10*3/uLNormal3.8-11.6The [facility] Physician GroupComment on above:Performed By: #### CMP, CBC, HS TROP, TSH3 wRFLX #### [place] [address] USAComprehensive Metabolic Panelon 18-78-9211Harqtkn [Mass/Vol]4.2 g/dLNormal3.5-5.7The [facility] Physician GroupComment on above: Performed By: #### CMP, CBC, HS TROP, TSH3 wRFLX #### [place] [address] USAAlbumin/Globulin [Mass ratio]1.2 {ratio}NormalThe [facility] Physician GroupComment on above:Performed By: #### CMP, CBC, HS TROP, TSH3 wRFLX #### [place] [address] USAALP [Catalytic activity/Vol]79 U/CLvyyjr27-866Ava [facility]ician GroupComment on above:Performed By: #### CMP, CBC, HS TROP, TSH3 wRFLX #### [place] [address] USAALT [Catalytic activity/Vol]15 U/LNormal7-52The [facility] Physician GroupComment on above:Performed By: #### CMP, CBC, HS TROP, TSH3 wRFLX #### [facility] [address] [place] [address] USAAnion gap [Moles/Vol]12.3 mmol/LNormal6.0-15.0The [facility] Physician GroupComment on above:Performed By: #### CMP, CBC, HS TROP, TSH3 wRFLX #### [place] [address] USAAST [Catalytic activity/Vol]17 U/GPjqiwv05-73Opl [facility] GroupComment on above:Performed By: #### CMP, CBC, HS TROP, TSH3 wRFLX #### [facility] [address] [place] [address] USABilirubin [Mass/Vol]0.3 mg/dLNormal0.3-1.0The [facility]ician GroupComment on above:Performed By: #### CMP, CBC, HS TROP, TSH3 wRFLX #### [place] [address] USACalcium [Mass/Vol]10.0 mg/dLNormal8.6-10.3The [facility] Physician GroupComment on above:Performed By: #### CMP, CBC, HS TROP, TSH3 wRFLX #### [place] [address] USAChloride [Moles/Vol]89 mmol/JKsl04-435Urh [facility] Physician GroupComment on above:Performed By: #### CMP, CBC, HS TROP, TSH3 wRFLX #### [place] [address] USACO2 [Moles/Vol]41.7 mmol/LHigh21.0-31.0The [facility] Physician GroupComment on above:Performed By: #### CMP, CBC, HS TROP, TSH3 wRFLX #### [place] [address] USACreatinine [Mass/Vol]0.47 mg/dLLow0.60-1.20The [facility] Physician GroupComment on above:Performed By: #### CMP, CBC, HS TROP, TSH3 wRFLX #### [place] [address] USACreatinine Clr Calc Uibhjihf48.11NormalThe [facility] Physician GroupComment on above:Result Comment: PERFORMED BY: [place] [address] PATHOLOGIST TALENT RECRUITER JASMEET LIN M.D.Performed By: #### CMP, CBC, HS TROP, TSH3 wRFLX #### [place] [id number] USAGFR/1.73 sq M.predicted MDRD (S/P/Bld) [Vol rate/Area] mL/min/{1.73_m2}NormalThe [facility] Physician GroupComment on above:Performed By: #### CMP, CBC, HS TROP, TSH3 wRFLX #### [facility] [address] [place] [address] USAGlobulin (S) [Mass/Vol]3.5 g/dLNormalThe [facility] Physician GroupComment on above:Performed By: #### CMP, CBC, HS TROP, TSH3 wRFLX #### [facility] [address] [place] [address] USAGlucose [Mass/Vol]104 mg/kSWnsr86-198Kzq [facility] Physician GroupComment on above:Result Comment: Random Glucose Reference Range is dependent on time and content of last meal. Glucose of more than 200 mg/dL in a nonstressed, ambulatory subject supports the diagnosis of Diabetes Mellitus. ADA recommended reference rangePerformed By: #### CMP, CBC, HS TROP, TSH3 wRFLX #### [facility] [address] [place] [address] USAPotassium [Moles/Vol]4.0 mmol/LNormal3.5-5.1The [facility] Physician GroupComment on above:Performed By: #### CMP, CBC, HS TROP, TSH3 wRFLX #### [facility] [address] [place] [address] USAProtein [Mass/Vol]7.7 g/dLNormal6.4-8.9The [facility] Physician GroupComment on above:Performed By: #### CMP, CBC, HS TROP, TSH3 wRFLX #### [facility] [address] [place] [id number] USASodium [Moles/Vol]139 mmol/LIzhhop700-939Tld [facility]ician GroupComment on above:Performed By: #### CMP, CBC, HS TROP, TSH3 wRFLX #### [facility] [address] [place] [address] USAUrea nitrogen [Mass/Vol]13 mg/dLNormal7-25The [facility]ician [facility] HospitalComment on above:Performed By: #### CMP, CBC, HS TROP, TSH3 wRFLX #### [facility] [address] [place] [address] USAECG 12 lead ECGon [id number] 12 lead [facility] [place] [address] [place] [address] Electrocardiograph Report Signed Patient: Cinthia Guerrero MR#: [id number] : 1960 Acct:[id number] Age/Sex: 62 / F ADM Date: 05/13/23 [...] variant artifact Confirmed by Kd Carver DO ([id number]) on 05/13/2023 7:17:32 PM Referred By: Electronically Signed By:Kd Carver DO Transcribed By: MUS Signed By Kd Carver DO Critical access hospitalEly-Bloomenson Community HospitalThyroid Stim Hormone w/Rflxon 38-59-0165Dbcrokf Stim Hormone w/Rflx0.89 u[iU]/mLNormal0.45-5.33The [facility] HospitalComment on above:Result Comment: PERFORMED BY: [place] [address] PATHOLOGIST TALENT RECRUITER JASMEET LIN M.D.Performed By: #### CMP, CBC, HS TROP, TSH3 wRFLX #### [address] [address] USATroponin I High Sensitivityon 28-16-2355Uensbiuy I High Sensitivity3.4 pg/mLNormal0.0-15.0The [facility] Physician GroupComment on above: Result Comment: PERFORMED BY: [place] [address] PATHOLOGIST TALENT RECRUITER JASMEET LIN M.D.Performed By: #### HS TROP #### [facility] [address] [place] [address] USATroponin I High Sensitivity3.9 pg/mLNormal0.0-15.0The [facility] Physician GroupComment on above:Result Comment: PERFORMED BY: [place] [address] PATHOLOGIST TALENT RECRUITER JASMEET LIN M.D.Performed By: #### CMP, CBC, HS TROP, TSH3 wRFLX #### [place] [address] USAXR chest 2V*on 96-13-2977GT chest 2V*[facility] [address] [place] [address] [place] [address] XRay Report Signed Patient: Cinthia Guerrero MR#: [id number] : 1960 Acct:[id number] Age/Sex: 62 / F ADM Date: 05/13/23 Loc: ER Room: Type: [facility] Attending Dr: Copies to: Stacia Garcia MD [...] Wong Byrd M.D.05/13/2023 8:53 PM Dictation Location: [place] [address] Transcribed By: MARCELLE 05/13/232052 Dictated By: CarsonWong Dionne PARSONS 05/13/232051 Signed By: 05/13/232052[facility] Physician GroupCULTURE BLOODon 09-07-2022 Microscopic examination of blood, cultureCulture Observations: Aerobic bottle positive; BCID=Staphylococcus Epidermidis Culture [...] >=8 R F Clindamycin <=0.25 R F Quinupristin/Dalfopristin <=0.25 S F Linezolid 1 S F Vancomycin 1 S F Tetracycline 2 S F Rifampicin <=0.5 S F Trimethoprim/Sulfamethoxazole 20 S FNormalThe [facility] Health CenterComment on above: Performed By: #### [id number] #### [facility] [address] [place] [address] Dr. Geri Cole AUTO DIFFon [id number] #0.0 103/ulNormal0.0-0.1The [facility] CenterComment on above:Performed By: #### CBC #### [facility] [address] [address] [address] Geri PradhanBasophils/100 WBC (Bld)0.2 %Normal0.2-2.0[facility] Comment on above:Performed By: #### CBC #### [facility] [address] [address] [address] Geri Hunter #0.0 103/ulNormal0.0-0.7The [facility] CenterComment on above: Performed By: #### CBC #### [facility] [address] [place] [address] Dr. Geri Avilaosinophils/100 WBC (Bld)0.0 %Critically low0.9-7.0The Southwest General Health CenterComment on above:Performed By: #### CBC #### [facility] [address] [place] [address] Dr. Geri Avilarythrocyte distribution width (RBC) [Ratio]13.8 %Jbxtmw28.0-15.0 [facility] NorthComment on above:Performed By: #### CBC #### [facility] [address] [place] [address] Dr. Geri PradhanHematocrit (Bld) [Volume fraction]38.8 %Facncx99.0-48.0The [facility] CenterComment on above:Performed By: #### CBC #### [facility] [address] [place] [address] Dr. Geri PradhanHemoglobin (Bld) [Mass/Vol]11.7 g/dLCritically low12.0-16.0The [facility] CenterComment on above:Performed By: #### CBC #### [facility] [address] [place] [address] Dr. Geri Le #0.27 10e3/ulCritically high0.00-0.03[facility] Comment on above:Performed By: #### CBC #### [facility] [address] [place] [address] Dr. Geri Le %2.9 %Critically high0.0-0.5The [facility] CenterComment on above:Performed By: #### CBC #### [facility] [address] [place] [address] Dr. Geri Joy #0.4 103/ulCritically low1.2-3.8The [facility] Comment on above:Performed By: #### CBC #### [facility] [address] [place] [address] Dr. Geri Solishocytes/100 WBC (Bld)4.4 %Critically low20.5-60.0[facility] NorthComment on above:Performed By: #### CBC #### [facility] [address] [place] [address] Dr. Geri SmithUAL DIFF REQNONormalThe [facility] CenterComment on above: Performed By: #### CBC #### [facility] [address] [place] [address] Dr. Geri Ya (RBC) [Entitic mass]26.8 wxGqzxgj54.7-34.0The [facility] CenterComment on above:Performed By: #### CBC #### [facility] [address] [place] [address] Dr. Geri Ya (RBC) [Mass/Vol]30.2 g/iVJvnxzz62.9-35.2The [facility] HospitalComment on above:Performed By: #### CBC #### [facility] [address] [place] [address] Dr. Geri Thompson (RBC) [Entitic vol]88.8 eLPzpsib99.0-99.0The [facility] CenterComment on above:Performed By: #### CBC #### [facility] [address] [place] [address] Dr. Geri Reyes #0.3 103/ulNormal0.3-0.8The [facility] CenterComment on above:Performed By: #### CBC #### [facility] [address] [place] [address] Dr. Geri Hewittocytes/100 WBC (Bld)3.6 %Normal1.7-12.0[facility] Comment on above:Performed By: #### CBC #### [facility] [address] [place] [address] Dr. Geri Hill #8.2 103/ulCritically high1.4-6.5The [facility] Comment on above:Performed By: #### CBC #### [facility] [address] [place] [address] Dr. Geri Lizutrophils/100 WBC (Bld)88.9 %Critically high43.0-75.0The [facility] CenterComment on above:Performed By: #### CBC #### [facility] [address] [place] [address] Dr. Yilan ChangPlatelet mean volume (Bld) [Entitic vol]9.1 fLCritically low 9.5-13.5The [facility] CenterComment on above:Performed By: #### CBC #### [facility] [address] [place] [address] Dr. Geri PradhanPLT314 103/hlCnyjri587-521Jsp [facility] CenterComment on above: Performed By: #### CBC #### [facility] [address] [place] [address] Dr. Geri PradhanRBC4.37 106/ulNormal4.20-5.40The [facility] CenterComment on above:Performed By: #### CBC #### [facility] [address] [place] [address] Dr. Geri PradhanWBC9.2 103/ulNormal4.0-11.0The [facility] CenterComment on above: Performed By: #### CBC #### [facility] [address] [place] [address] Dr. Geri PradhanPROF 14(COMP METB)on [id number] [Mass/Vol]2.7 g/dL Critically low3.4-5.0The [facility] on above:Performed By: #### MI CMP #### [facility] [address] [place] [address] Dr. Geri PradhanAlbumin/Globulin [Mass ratio]0.7 {ratio}NormalThe [facility] CenterComhenry [facility] on above:Performed By: #### MI, CMP #### [facility] [address] [place] [address] Dr. Geri Castanon [Catalytic activity/Vol]65 U/YBavvoj26-943Rcz [facility] on above:Performed By: #### MI, CMP #### [facility] [address] [place] [address] Dr. Geri Walls [Catalytic activity/Vol]23 U/RGhnrqa95-82Qnt [facility] CenterComhen[facility] on above:Performed By: #### MI, CMP #### [facility] [address] [address] [address] Geri Zuleta gap [Moles/Vol]2.0 mmol/LNormalThe [facility] CenterComment on above:Performed By: #### MI, CMP #### [facility] [address] [place] [address] Dr. Geri PradhanAST [Catalytic activity/Vol]17 U/OSvvtwk11-19Ksv [facility] CenterComment on above:Performed By: #### MI, CMP #### [facility] [address] [place] [address] Dr. Geri PradhanBilirubin [Mass/Vol]0.1 mg/dLCritically low0.2-1.0The [facility] CenterComment on above:Performed By: #### MI, CMP #### [facility] [address] [place] [address] Dr. Geri PradhanCalcium [Mass/Vol]9.0 mg/dLNormal8.5-10.1The [facility] Comment on above:Performed By: #### MI, CMP #### [facility] [address] [place] [address] Dr. Geri PradhanChloride [Moles/Vol]99 mmol/ORfagbm64-602Dec [facility] Comment on above:Performed By: #### MI, CMP #### [facility] [address] [place] [address] Dr. Geri PradhanCO2 [Moles/Vol]45.3 mmol/LCritically high21.0-32.0The [facility] CenterComment on above:Performed By: #### MI, CMP #### [facility] [address] [place] [address] Dr. Geri PradhanCreatinine [Mass/Vol]0.50 mg/dLCritically low0.55-1.02The [facility] CenterComment on above:Performed By: #### MI, CMP #### [facility] [address] [place] [address] Dr. Nevarez ChangEGFR-AF BELGIAN>60Normal>=60The [facility] CenterComment on above:Performed By: #### MI, CMP #### [facility] [address] [address] [address] Geri AvilaGFR-NON AF BELGIAN>60Normal>=60The [facility] CenterComment on above:Performed By: #### MI, CMP #### [facility] [address] [address] [address] Geri PradhanGlobulin (S) [Mass/Vol]3.7 g/dLNormalThe [facility] CenterComment on above:Performed By: #### MI, CMP #### [facility] [address] [place] [address] Dr. Geri PradhanGlucose [Mass/Vol]180 mg/dLCritically pgps24-928Ohn [facility] CenterComment on above:Performed By: #### MI, CMP #### [facility] [address] [place] [address] Dr. Geri PradhanPotassium [Moles/Vol]4.3 mmol/LNormal3.5-5.1The [facility] Comment on above:Performed By: #### MI, CMP #### [facility] [address] [address] [address] Geri PradhanProtein [Mass/Vol]6.4 g/dLNormal6.4-8.2[facility] Comment on above:Performed By: #### MI, CMP #### [facility] [address] [address] [address] Geri PradhanSodium [Moles/Vol]142 mmol/HAhmcdj230-277Scd [facility] Comment on above:Performed By: #### MI, CMP #### [facility] [address] [place] [address] Dr. Geri PradhanUrea nitrogen [Mass/Vol]13.0 mg/dLNormal7.0-18.0The [facility] CenterComment on above:Performed By: #### MI, CMP #### [facility] [address] [place] [address] Dr. Geri Allen nitrogen/Creatinine [Mass ratio]26.0 mg/mgNormLancaster Municipal Hospitale [facility] CenterComment on above:Performed By: #### MI, CMP #### [facility] [address] [place] [address] Dr. Geri PradhanTHEOPHYLLINEon [id number]<2.0Critically low10.0-20.0 The [facility] CenterComment on above:Performed By: #### MI CMP #### [facility] [address] [place] [address] Dr. Geri Cole AUTO DIFFon [id number] #0.0 103/ulNormal0.0-0.1The [facility] CenterComment on above:Performed By: #### RSPLUS #### [facility] [address] [place] [address] Dr. Geri PradhanBasophils/100 WBC (Bld)0.1 %Critically low0.2-2.0The [facility] CenterComment on above:Performed By: #### RSPLUS #### [facility] [address] [place] [address] Dr. Geri Hunter #0.0 103/ulNormal0.0-0.7The [facility] CenterComment on above: Performed By: #### RSPLUS #### [facility] [address] [place] [address] Dr. Geri Avilaosinophils/100 WBC (Bld)0.0 %Critically low0.9-7.0The [facility] CenterComment on above:Performed By: #### RSPLUS #### [facility] [address] [place] [address] Dr. Geri Avilarythrocyte distribution width (RBC) [Ratio]13.4 %Amnyzq84.0-15.0 The [facility] CenterComment on above:Performed By: #### RSPLUS #### [facility] [address] [place] [address] Dr. Geri PradhanHematocrit (Bld) [Volume fraction]42.8 %Jerayj82.0-48.0The [facility] CenterComment on above:Performed By: #### RSPLUS #### [facility] [address] [address] [address] Geri PradhanHemoglobin (Bld) [Mass/Vol]12.8 g/gFGmmmnm82.0-16.0The [facility] CenterComment on above:Performed By: #### RSPLUS #### [facility] [address] [place] [address] Dr. Geri Le #0.25 10e3/ulCritically high0.00-0.03The [facility] Comment on above:Performed By: #### RSPLUS #### [facility] [address] [place] [address] Dr. Geri Le %2.0 %Critically high0.0-0.5The [facility] CenterComment on above:Performed By: #### RSPLUS #### [facility] [address] [place] [address] Dr. Geri Joy #0.4 103/ulCritically low1.2-3.8The [facility] Comment on above:Performed By: #### RSPLUS #### [facility] [address] [place] [address] Dr. Geri Solishocytes/100 WBC (Bld)3.6 %Critically low20.5-60.0[facility] NorthComment on above:Performed By: #### RSPLUS #### [facility] [address] [place] [address] Dr. Geri SmithUAL DIFF REQNONormalThe [facility] CenterComment on above: Performed By: #### RSPLUS #### [facility] [address] [place] [address] Dr. Geri Ya (RBC) [Entitic mass]26.8 hdTefqzy91.7-34.0The [facility] CenterComment on above:Performed By: #### RSPLUS #### [facility] [address] [place] [address] Dr. Geri Ya (RBC) [Mass/Vol]29.9 g/pKOieode94.9-35.2The [facility] CenterComment on above:Performed By: #### RSPLUS #### [facility] [address] [place] [address] Dr. Geri Thompson (RBC) [Entitic vol]89.5 iSWtteyd40.0-99.0The [facility] CenterComment on above:Performed By: #### RSPLUS #### [facility] [address] [place] [address] Dr. Geri Reyes #0.2 103/ulCritically low0.3-0.8The [facility] CenterComment on above:Performed By: #### RSPLUS #### [facility] [address] [place] [address] Dr. Geri Hewittocytes/100 WBC (Bld)1.9 %Normal1.7-12.0The [facility] Comment on above:Performed By: #### RSPLUS #### [facility] [address] [place] [address] Dr. Geri Hill #11.4 103/ulCritically high1.4-6.5The [facility] Comment on above:Performed By: #### RSPLUS #### [facility] [address] [place] [address] Dr. Geri Lizutrophils/100 WBC (Bld)92.4 %Critically high43.0-75.0The [facility] CenterComment on above:Performed By: #### RSPLUS #### [facility] [address] [place] [address] Dr. Geri Cooklet mean volume (Bld) [Entitic vol]8.9 fLCritically low 9.5-13.5The [facility] CenterComment on above:Performed By: #### RSPLUS #### [facility] [address] [place] [address] Dr. Geri DavisT350 103/csOpddrz755-977Rrg [facility] CenterComment on above: Performed By: #### RSPLUS #### [facility] [address] [place], [place] [id number] Dr. Geri PradhanRBC4.78 106/ulNormal4.20-5.40The [facility]ment on above:Performed By: #### RSPLUS #### [facility] [address] [place] [address] Dr. Geri PradhanWBC12.3 103/ulCritically high4.0-11.0The [facility] CenterComment on above:Performed By: #### RSPLUS #### [facility] [address] [place] [address] Dr. Geri PradhanPOINT OF CARE GLUCOSEon [id number] [Mass/Vol]142 mg/dL Critically pqsr19-495Elg [facility] CenterComhenry [facility] on above:Performed By: #### POCGLUC #### [facility] [address] [place] [address] Dr. Geri PradhanGlucose [Mass/Vol]198 mg/dLCritically grax72-248Rti [facility] CenterComment on above:Performed By: #### MI, CMP #### [facility] [address] [place] [address] Dr. Geri PradhanGlucose [Mass/Vol]147 mg/dLCritically colf91-098Awt [facility] CenterComhenry [facility] on above:Performed By: #### MI, CMP #### [facility] [address] [place] [address] Dr. Geri PradhanPROF 14(COMP METB)on 77-99-0029Vttjivo [Mass/Vol]2.9 g/dL Critically low3.4-5.0The [facility] CenterComment on above:Performed By: #### MI, CMP #### [facility] [address] [place] [address] Dr. Geri PradhanAlbumin/Globulin [Mass ratio]0.7 {ratio}NormalThe [facility] on above:Performed By: #### MI, CMP #### [facility] [address] [place] [address] Dr. Geri PradhanALP [Catalytic activity/Vol]73 U/QPblefj97-025Cgp [facility] HospitalComment on above:Performed By: #### MI, CMP #### [facility] [address] [address] [address] Geri Walls [Catalytic activity/Vol]24 U/WHnslew07-71Qqa [facility] CenterComment on above:Performed By: #### MI, CMP #### [facility] [address] [place] [address] Dr. Geri Rolandon gap [Moles/Vol]3.2 mmol/LNormalThe [facility] CenterComment on above:Performed By: #### MI, CMP #### [facility] [address] [place] [address] Dr. Geri PradhanAST [Catalytic activity/Vol]17 U/TKhtmws88-86Ybc [facility] CenterComment on above:Performed By: #### MI, CMP #### [facility] [address] [place] [address] Dr. Geri PradhanBilirubin [Mass/Vol]0.1 mg/dLCritically low0.2-1.0The [facility] on above:Performed By: #### MI, CMP #### [facility] [address] [place] [address] Dr. Geri PradhanCalcium [Mass/Vol]9.4 mg/dLNormal8.5-10.1[facility] Comment on above:Performed By: #### MI, CMP #### [facility] [address] [place] [address] Dr. Geri PradhanChloride [Moles/Vol]100 mmol/ZDqxkfu22-869Kpn [facility] Comment on above:Performed By: #### MI, CMP #### [facility] [address] [place] [address] Dr. Geri PradhanCO2 [Moles/Vol]43.2 mmol/LCritically high21.0-32.0The [facility] on above:Performed By: #### MI, CMP #### [facility] [address] [place] [address] Dr. Geri PradhanCreatinine [Mass/Vol]0.52 mg/dLCritically low0.55-1.02[facility] NorthComment on above:Performed By: #### MI, CMP #### [facility] [address] [place] [address] Dr. Geri AvilaGFR-AF BELGIAN>60Normal>=60The [facility] CenterComment on above:Performed By: #### MI, CMP #### [facility] [address] [place] [address] Dr. Geri AvilaGFR-NON AF BELGIAN>60Normal>=60The [facility] CenterComment on above:Performed By: #### MI, CMP #### [facility] [address] [place] [address] Dr. Geri PradhanGlobulin (S) [Mass/Vol]4.2 g/dLNormalThe [facility] CenterComment on above:Performed By: #### MI, CMP #### [facility] [address] [place] [address] Dr. Geri PradhanGlucose [Mass/Vol]138 mg/dLCritically jvgv99-050DdkSelect Medical Special[facility] Hospital - [facility] NorthComment on above:Performed By: #### MI, CMP #### [facility] [address] [place] [address] Dr. Geri PradhanPotassium [Moles/Vol]4.4 mmol/LNormal3.5-5.1[facility] Comment on above:Performed By: #### MI, CMP #### [facility] [address] [place] [address] Dr. Geri PradhanProtein [Mass/Vol]7.1 g/dLNormal6.4-8.2[facility] Comment on above:Performed By: #### MI, CMP #### [facility] [address] [place] [address] Dr. Geri PradhanSodium [Moles/Vol]142 mmol/TXxmlnh478-176IjcSelect Medical Specialty [facility] Comment on above:Performed By: #### MI, CMP #### [facility] [address] [place] [address] Dr. Yilan ChangUrea nitrogen [Mass/Vol]15.0 mg/dLNormal7.0-18.0The [facility] CenterComment on above:Performed By: #### MI, CMP #### [facility] [address] [address] [address] Geri Allen nitrogen/Creatinine [Mass ratio]28.8 mg/mgNormalThe [facility] CenterComment on above:Performed By: #### MI, CMP #### [facility] [address] [address] [address] Geri PradhanRESPIRATORY PANEL PLUSon 68-83-1411HqbxmrnnpdFoy detectedNormal NOT DETECTEDThe [facility] CenterComment on above:Performed By: #### RSPLUS #### [facility] [address] [place] [address] Dr. Geri Gonzalez ParapertusisNot detectedNormalNOT DETECTEDThe [facility] CenterComment on above:Performed By: #### RSPLUS #### [facility] [address] [place] [address] Dr. Geri Gonzalez PertussisNot detectedNormalNOT DETECTEDThe [facility] on above:Performed By: #### RSPLUS #### [facility] [address] [place] [address] Dr. Geri PradhanChlamydia PneumoniaeNot detectedNormalNOT DETECTEDThe [facility] CenterComment on above:Performed By: #### RSPLUS #### [facility] [address] [place] [address] Dr. Geri PradhanCoronavirus 229ENot detectedNormalNOT DETECTEDThe [facility] CenterComment on above:Performed By: #### RSPLUS #### [facility] [address] [place] [address] Dr. Geri PradhanCoronavirus XEE5Qxv detectedNormalNOT DETECTEDThe [facility] CenterComment on above:Performed By: #### RSPLUS #### [facility] [address] [place] [address] Dr. Geri PradhanCoronavirus IR00Efy detectedNormalNOT DETECTEDThe [facility] CenterComment on above:Performed By: #### RSPLUS #### [facility] [address] [address] [address] Geri PradhanCoronavirus [id number] detectedNormalNOT DETECTEDThe [facility] CenterComment on above:Performed By: #### RSPLUS #### [facility] [address] [address] [address] Geri Parikh A H1Not detectedNormalNOT DETECTEDThe [facility] Comment on above:Performed By: #### RSPLUS #### [facility] [address] [address] [address] Geri Capone H1 2009Not detectedNormalNOT DETECTEDThe [facility] CenterComhenry [facility] on above:Performed By: #### RSPLUS #### [facility] [address] [address] [address] Geri Capone H3Not detectedNormalNOT DETECTEDThe [facility] Comment on above:Performed By: #### RSPLUS #### [facility] [address] [address] [address] Geri Parikh BNot detectedNormalNOT DETECTEDSelect [facility] Comment on above:Performed By: #### RSPLUS #### [facility] [address] [address] [address] Geri ObregonapneumovirusNot detectedNormalNOT DETECTEDThe [facility] CenterComhenry [facility] on above:Performed By: #### RSPLUS #### [facility] [address] [address] [address] Geri Mclean. PneumoniaeNot detectedNormalNOT DETECTEDThe [facility] CenterComment on above:Performed By: #### RSPLUS #### [facility] [address] [address] [address] Geri Davis 1Not detectedNormalNOT DETECTEDThe [facility] CenterComment on above:Performed By: #### RSPLUS #### [facility] [address] [address] [address] Yilan ChangParainfluenza 2Not detectedNormalNOT DETECTEDThe [facility] CenterComhenry [facility] on above:Performed By: #### RSPLUS #### [facility] [address] [place] [address] Dr. Geri Davis 3DetectedAbnormalNOT DETECTEDThe [facility] Comment on above:Performed By: #### RSPLUS #### [facility] [address] [place] [address] Dr. Geri Davis 4Not detectedNormalNOT DETECTEDThe [facility] CenterComment on above:Performed By: #### RSPLUS #### [facility] [address] [place] [address] Dr. Geri PradhanRhino/EnterovirusNot detectedNormalNOT DETECTEDThe [facility] CenterComhenry [facility] on above:Performed By: #### RSPLUS #### [facility] [address] [place] [address] Dr. Geri Taylor Header 1RESPIRATORY PANEL: VIRUSESBrecksville [facility] Comment on above:Performed By: #### RSPLUS #### [facility] [address] [place] [place] [address] Dr. Geri Taylor Header 2RESPIRATORY PANEL: BACTERIABrecksville VA / Crille HospitalComment on above:Performed By: #### RSPLUS #### [facility] [address] [place] [address] Dr. Geri PavonVNot detectedNormalNOT DETECTEDThe [facility] CenterComhenry for[facility] on above:Performed By: #### RSPLUS #### [facility] [address] [place] [address] Dr. Geri Ovalles-CoV-2 (COVID-19) RNA KRUNAL+probe Ql (Unsp spec)Not detected NormalNOT DETECTEDThe [facility] CenterComhenry ford [facility] on above:Performed By: #### RSPLUS #### [facility] [address] [place] [address] Dr. Geri PereiraWestlake Regional Hospital [id number]<2.0Critically low10.0-20.0 The [facility] CenterComment on above:Performed By: #### MI, CMP #### [facility] [address] [place] [address] Dr. Geri Cole AUTO DIFFon [id number] #0.0 103/ulNormal0.0-0.1The [facility] CenterComment on above:Performed By: #### POCGLUC #### [facility] [address] [place] [address] Dr. Geri PradhanBasophils/100 WBC (Bld)0.1 %Critically low0.2-2.0The [facility] CenterComment on above:Performed By: #### POCGLUC #### [facility] [address] [place] [address] Dr. Geri Hunter #0.0 103/ulNormal0.0-0.7The [facility] CenterComment on above: Performed By: #### POCGLUC #### [facility] [address] [place] [address] Dr. Geri Avilaosinophils/100 WBC (Bld)0.0 %Critically low0.9-7.0The [facility] CenterComment on above:Performed By: #### POCGLUC #### [facility] [address] [place] [address] Dr. Geri Avilarythrocyte distribution width (RBC) [Ratio]13.0 %Serzvy74.0-15.0 The [facility] CenterComment on above:Performed By: #### POCGLUC #### [facility] [address] [place] [address] Dr. Geri PradhanHematocrit (Bld) [Volume fraction]42.1 %Tejsdg07.0-48.0[facility] NorthComment on above:Performed By: #### POCGLUC #### [facility] [address] [place] [address] Dr. Geri PradhanHemoglobin (Bld) [Mass/Vol]12.3 g/xSUccpxy80.0-16.0The [facility] CenterComment on above:Performed By: #### POCGLUC #### [facility] [address] [address] [address] Geri Le #0.13 10e3/ulCritically high0.00-0.03[facility] Comment on above:Performed By: #### POCGLUC #### [facility] [address] [place] [address] Dr. Geri Le %1.2 %Critically high0.0-0.5The [facility] CenterComment on above:Performed By: #### POCGLUC #### [facility] [address] [place] [address] Dr. Geri Joy #0.6 103/ulCritically low1.2-3.8The [facility] Comment on above:Performed By: #### POCGLUC #### [facility] [address] [place] [address] Dr. Geri oSlishocytes/100 WBC (Bld)6.0 %Critically low20.5-60.0The [facility] CenterComment on above:Performed By: #### POCGLUC #### [facility] [address] [place] [address] Dr. Geri SmithUAL DIFF REQNONormalThe [facility] CenterComment on above: Performed By: #### POCGLUC #### [facility] [address] [place] [address] Dr. Geri Hugo (RBC) [Entitic mass]26.0 pgCritically low26.7-34.0The [facility] CenterComment on above:Performed By: #### POCGLUC #### [facility] [address] [place] [address] Dr. Geri Ya (RBC) [Mass/Vol]29.2 g/dLCritically low29.9-35.2The [facility] CenterComment on above:Performed By: #### POCGLUC #### [facility] [address] [place] [address] Dr. Geri Ya (RBC) [Entitic vol]89.0 qFVurwma97.0-99.0The [facility] CenterComment on above:Performed By: #### POCGLUC #### [facility] [address] [address] [address] Geri Reyes #0.2 103/ulCritically low0.3-0.8The [facility] CenterComment on above:Performed By: #### POCGLUC #### [facility] [address] [address] [address] Geri Hewittocytes/100 WBC (Bld)2.0 %Normal1.7-12.0[facility] Comment on above:Performed By: #### POCGLUC #### [facility] [address] [place] [address] Dr. Geri Hill #9.6 103/ulCritically high1.4-6.5The [facility] Comment on above:Performed By: #### POCGLUC #### [facility] [address] [place] [address] Dr. Geri Lizutrophils/100 WBC (Bld)90.7 %Critically high43.0-75.0The [facility] CenterComment on above:Performed By: #### POCGLUC #### [facility] [address] [place] [address] Dr. Geri Bautista mean volume (Bld) [Entitic vol]9.1 fLCritically low 9.5-13.5ThCherrington HospitalComment on above:Performed By: #### POCGLUC #### [facility] [address] [place] [address] Dr. Geri PradhanPLT302 103/xrVayhzj151-088Gma [facility] CenterComment on above: Performed By: #### POCGLUC #### [facility] [address] [place] [address] Dr. Geri PradhanRBC4.73 106/ulNormal4.20-5.40The [facility] CenterComment on above:Performed By: #### POCGLUC #### [facility] [address] [place] [address] Dr. Geri PradhanWBC10.6 103/ulNormal4.0-11.0The [facility] CenterComment on above:Performed By: #### POCGLUC #### [facility] [address] [address] [address] Geri PradhanARCHBOLD - MITCHE[facility] GLUCOSEon [id number] [Mass/Vol]130 mg/dL Critically jvit75-069Kkk [facility] CenterComment on above:Performed By: #### MI, CMP #### [facility] [address] [address] [address] Geri PradhanGlucose [Mass/Vol]217 mg/dLCritically ihms56-808Cnb [facility] CenterComment on above:Performed By: #### MI, CMP #### [facility] [address] [address] [address] Geri PradhanGlucose [Mass/Vol]327 mg/dLCritically tehv57-028Psn [facility] CenterComment on above:Performed By: #### CVDTBH #### [facility] [address] [place] [address] Dr. Geri PradhanGlucose [Mass/Vol]146 mg/dLCritically uzqf14-591Wog [facility] CenterComment on above:Performed By: #### MI, CMP #### [facility] [address] [address] [address] Geri PradhanGlucose [Mass/Vol]174 mg/dLCritically fuky11-963New [facility] CenterComment on above:Performed By: #### MI, CMP #### [facility] [address] [address] [address] Geri PradhanPROF 14(COMP METB)on [id number] [Mass/Vol]2.9 g/dL Critically low3.4-5.0The [facility] CenterComment on above:Performed By: #### POCGLUC #### [facility] [address] [place] [address] Dr. Geri PradhanAlbumin/Globulin [Mass ratio]0.7 {ratio}NormalThe [facility] CenterComment on above:Performed By: #### POCGLUC #### [facility] [address] [place] [address] Dr. Geri PradhanALP [Catalytic activity/Vol]74 U/OKrhuna06-126Psc [facility] CenterComment on above:Performed By: #### POCGLUC #### [facility] [address] [address] [address] Geri Walls [Catalytic activity/Vol]21 U/SXfsmlf53-02Rmm [facility] CenterComment on above:Performed By: #### POCGLUC #### [facility] [address] [address] [address] Geri Rolandon gap [Moles/Vol]4.4 mmol/LNormalThe [facility] CenterComment on above:Performed By: #### POCGLUC #### [facility] [address] [address] [address] Geri PradhanAST [Catalytic activity/Vol]17 U/AXydkex59-08Edb [facility] CenterComment on above:Performed By: #### POCGLUC #### [facility] [address] [address] [address] Geri PradhanBilirubin [Mass/Vol]0.2 mg/dLNormal0.2-1.0The [facility] Comment on above:Performed By: #### POCGLUC #### [facility] [address] [place] [address] Dr. Geri PradhanCalcium [Mass/Vol]9.4 mg/dLNormal8.5-10.1The [facility] Comment on above:Performed By: #### POCGLUC #### [facility] [address] [address] [address] Geri PradhanChloride [Moles/Vol]99 mmol/NFeqvax47-502Hvq [facility] Comment on above:Performed By: #### POCGLUC #### [facility] [address] [address] [address] Geri PradhanCO2 [Moles/Vol]42.8 mmol/LCritically high21.0-32.0The [facility] CenterComment on above:Performed By: #### POCGLUC #### [facility] [address] [address] [address] Geri PradhanCreatinine [Mass/Vol]0.55 mg/dLNormal0.55-1.02[facility] NorthComment on above:Performed By: #### POCGLUC #### [facility] [address] [address] [address] Geri AvilaGFR-AF BELGIAN>60Normal>=60The [facility] CenterComment on above:Performed By: #### POCGLUC #### [facility] [address] [address] [address] Geri AvilaGFR-NON AF BELGIAN>60Normal>=60The [facility] CenterComment on above:Performed By: #### POCGLUC #### [facility] [address] [address] [address] Geri PradhanGlobulin (S) [Mass/Vol]4.4 g/dLNormalThe [facility] CenterComment on above:Performed By: #### POCGLUC #### [facility] [address] [address] [address] Geri PradhanGlucose [Mass/Vol]136 mg/dLCritically puqj02-790EycProtestant Hospitalment on above:Performed By: #### POCGLUC #### [facility] [address] [address] [address] Geri PradhanPotassium [Moles/Vol]4.2 mmol/LNormal3.5-5.1[facility] Comment on above:Performed By: #### POCGLUC #### [facility] [address] [address] [address] Geri rPadhanProtein [Mass/Vol]7.3 g/dLNormal6.4-8.2[facility] Comment on above:Performed By: #### POCGLUC #### [facility] [address] [address] [address] Geri PradhanSodium [Moles/Vol]142 mmol/SZvrmbm358-374HxeSelect Medical Specialty Hospital [facility] Comment on above:Performed By: #### POCGLUC #### [facility] [address] [address] [address] Geri PradhanUrea nitrogen [Mass/Vol]14.0 mg/dLNormal7.0-18.0Protestant Hospitalment on above:Performed By: #### POCGLUC #### [facility] [address] [place] [address] Dr. Geri PradhanUrea nitrogen/Creatinine [Mass ratio]25.5 mg/mgNormalThe [facility] CenterComhenry [facility]d [facility] on above:Performed By: #### POCGLUC #### [facility] [address] [place] [address] Dr. Geri PradhanTHEOPHYLLINEon 36-39-8398FXDRTLRXIDDA<2.0Critically low10.0-20.0 The [facility] CenterComment on above:Performed By: #### POCGLUC #### [facility] [address] [place] [address] Dr. Geri PradhanMAGNESIUMon 55-94-3404Swofffmse [Mass/Vol]2.3 mg/dLNormal1.8-2.4 The [facility] CenterComment on above:Performed By: #### MI, CMP #### [facility] [address] [place] [address] Dr. Geri PradhanPOINT OF CARE GLUCOSEon 94-22-2438Rjkcuvh [Mass/Vol]118 mg/dL Critically cbzq85-293TdlSelect Medical Specialty Hospital - [facility] NorthComhenry ford [facility] hospital on above:Performed By: #### RSPLUS #### [facility] [address] [place] [address] Dr. Geri PradhanGlucose [Mass/Vol]263 mg/dLCritically uald11-886UdkSelect Medical Specialty Hospital - Cincinnati NorthComment on above:Performed By: #### RSPLUS #### [facility] [address] [place] [address] Dr. Geri PradhanGlucose [Mass/Vol]160 mg/dLCritically ulfd79-872NmoSelect Medical Specialty Hospital - Cincinnati NorthComment on above:Performed By: #### POCGLUC #### [facility] [address] [place] [address] Dr. Geri PradhanPROF CHEM 8 (BAS METB)on 35-82-3557Egbmo gap [Moles/Vol]5.3 mmol/LNormalSelect Medical Specialty Hospital - Cincinnati NorthComment on above:Performed By: #### MI, CMP #### [facility] [address] [address] [address] Geri PradhanCalcium [Mass/Vol]9.5 mg/dLNormal8.5-10.1The [facility] Comment on above:Performed By: #### MI, CMP #### [facility] [address] [place] [address] Dr. Geri PradhanChloride [Moles/Vol]94 mmol/LCritically vcm52-593Ude [facility] CenterComment on above:Performed By: #### MI, CMP #### [facility] [address] [place] [address] Dr. Geri PradhanCO2 [Moles/Vol]42.5 mmol/LCritically high21.0-32.0The [facility], Beachwoodment on above:Performed By: #### MI, CMP #### [facility] [address] [place] [address] Dr. Geri PradhanCreatinine [Mass/Vol]0.66 mg/dLNormal0.55-1.02The [facility] CenterComment on above:Performed By: #### MI, CMP #### [facility] [address] [place] [address] Dr. Geri AvilaGFR-AF BELGIAN>60Normal>=60The [facility], Beachwoodment on above:Performed By: #### MI, CMP #### [facility] [address] [place] [address] Dr. Geri AvilaGFR-NON AF BELGIAN>60Normal>=60The [facility], Beachwoodment on above:Performed By: #### MI, CMP #### [facility] [address] [place] [address] Dr. Geri PradhanGlucose [Mass/Vol]183 mg/dLCritically pysc68-347Rkw [facility] CenterComhenry ford [facility] hospital on above:Performed By: #### MI, CMP #### [facility] [address] [place] [address] Dr. Geri PradhanPotassium [Moles/Vol]3.8 mmol/LNormal3.5-5.1[facility] Comment on above:Performed By: #### MI, CMP #### [facility] [address] [address] [address] Geri Quigleyum [Moles/Vol]138 mmol/SFgayzr045-148HtjSelect Medical Specialty Hospital - [facility] North Comment on above:Performed By: #### MI, CMP #### [facility] [address] [place] [address] Dr. Geri Allen nitrogen [Mass/Vol]10.0 mg/dLNormal7.0-18.0The [facility] CenterComment on above:Performed By: #### MI, CMP #### [facility] [address] [place] [address] Dr. Geri Allen nitrogen/Creatinine [Mass ratio]15.2 mg/mgNoAdena Pike Medical CenterComment on above:Performed By: #### MI, CMP #### [facility] [address] [place] [address] Dr. Geri PradhanTHEOPHYLLINEon 53-16-5027TDXBBWJVCGXX<2.0Critically low10.0-20.0 [facility] NorthComment on above:Performed By: #### RSPLUS #### [facility] [address] [place] [address] Dr. Geri Garcia CULTURE ID PANELon 09-01-2022. baumanniiNot detectedNormal NOT DETECTEDThe [facility] CenterComment on above:Performed By: #### MI, CMP #### [facility] [address] [place] [address] Dr. Geri Alicea fragilisNot detectedNormalNOT DETECTEDThe [facility] CenterComment on above:Performed By: #### MI, CMP #### [facility] [address] [place] [address] Dr. Geri Alfaro CONTROLSPASSEDNoAdena Pike Medical CenterComment on above: Performed By: #### MI, CMP #### [facility] [address] [place] [address] Dr. Geri AlfaroBTHDBLOOD CULTURE BOTTLE INFORMATIONBrecksville VA / Crille HospitalComment on above:Performed By: #### MI, CMP #### [facility] [address] [place] [address] Dr. Geri AlfaroSqksoNHMYRU8PCZWIXKJNTCQJ RESISTANCE GENESBrecksville VA / Crille Hospital Comment on above:Performed By: #### MI, CMP #### [facility] [address] [place] [address] Dr. Geri AlfaroHD2SEE BELOWBrecksville VA / Crille HospitalComment on above: Result Comment: Note: Antimicrobial resitance can occur via multiple mechanisms. A Not Detected result for the [employer] antomicrobial resistance gene assays does not indicate antimicrobial susceptibility. Subculturing is required for species identification and susceptibility testing of isolates.Performed By: #### MI, CMP #### [facility] [address] [place] [address] Dr. Geri AlfaroUlygvJIFUUO0RwoqqcmvGbfrjsKsa Bellevue HospitalComment on above: Performed By: #### MI CMP #### [facility] [address] [place] [address] Dr. Geri AlfaroRkpsdWUWSAN0OuymkkpxWoadmlEnd Bellevue HospitalComment on above: Performed By: #### MI CMP #### [facility] [address] [place] [address] Dr. Geri AlfaroUyyqyYGYQOT9RIRSUMgejhcRxyBrecksville VA / Crille HospitalComhenry [facility]d [facility] hospital on above:Performed By: #### MI CMP #### [facility] [address] [place] [address] Dr. Geri Ventura Set:Set 1NormalSelect Medical Specialty Hospital - [facility] NorthComhenry ford [facility] hospital on above: Performed By: #### MI CMP #### [facility] [address] [place] [address] Dr. Geri Ventura:AerobicBrecksville VA / Crille HospitalComhenry ford [facility] hospital on above: Performed By: #### MI, CMP #### [facility] [address] [place] [address] Dr. Geri Steward. neoformans/gattiiNot detectedNormalNOT DETECTEDSelect Medical Specialty Hospital - [facility] NorthComment on above:Performed By: #### MI, CMP #### [facility] [address] [address] [address] Geri Machado albicansNot detectedNormalNOT DETECTEDThe [facility] CenterComment on above:Performed By: #### MI, CMP #### [facility] [address] [address] [address] Grei Machado aurisNot detectedNormalNOT DETECTEDThe [facility] Comment on above:Performed By: #### MI, CMP #### [facility] [address] [address] [address] Geri Machado glabrataNot detectedNormalNOT DETECTEDThe [facility] CenterComhenry ford kingswood hospital on above:Performed By: #### MI, CMP #### [facility] [address] [address] [address] Geri Machado KruseiNot detectedNormalNOT DETECTEDThe [facility] Comment on above:Performed By: #### MI, CMP #### [facility] [address] [address] [address] Geri Machaod ParapsilosisNot detectedNormalNOT DETECTEDThe [facility] CenterComment on above:Performed By: #### MI, CMP #### [facility] [address] [address] [address] Geri Machado TropicalisNot detectedNormalNOT DETECTEDThe [facility] CenterComment on above:Performed By: #### MI, CMP #### [facility] [address] [address] [address] Geri PradhanCTX-M Resistant GeneNot ApplicableNormalNOT DETECTEDThe [facility] CenterComment on above:Performed By: #### MI, CMP #### [facility] [address] [place] [address] Dr. Geri Avila. Cloacae complexNot detectedNormalNOT DETECTEDThe [facility] CenterComment on above:Performed By: #### MI, CMP #### [facility] [address] [address] [address] Geri Avila. faecalisNot detectedNormalNOT DETECTEDThe [facility] Comment on above:Performed By: #### MI, CMP #### [facility] [address] [address] [address] Geri Avila. faeciumNot detectedNormalNOT DETECTEDThe [facility] Comment on above:Performed By: #### MI, CMP #### [facility] [address] [address] [address] Geri AvilanterobacteriaceaeNot detectedNormalNOT DETECTEDThe [facility] CenterComment on above:Performed By: #### MI, CMP #### [facility] [address] [place] [address] Dr. Geri Contrerasichia coliNot detectedNormalNOT DETECTEDThe [facility] CenterComment on above:Performed By: #### MI, CMP #### [facility] [address] [place] [address] Dr. Geri Wilde. influenzaeNot detectedNormalNOT DETECTEDThe [facility] Comment on above:Performed By: #### MI, CMP #### [facility] [address] [place] [address] Dr. Geri Perez Resistant GeneNot ApplicableNormalNOT DETECTEDThe [facility] CenterComment on above:Performed By: #### MI, CMP #### [facility] [address] [place] [address] Dr. Geri Goss. oxytocaNot detectedNormalNOT DETECTEDThe [facility] Comment on above:Performed By: #### MI, CMP #### [facility] [address] [place] [address] Dr. Geri Goss. pneumoniaeNot detectedNormalNOT DETECTEDThe [facility] Comment on above:Performed By: #### MI, CMP #### [facility] [address] [place] [address] Dr. Geri Duenasella aerogenesNot detectedNormalNOT DETECTEDThe [facility] CenterComment on above:Performed By: #### MI, CMP #### [facility] [address] [address] [address] Geri Kennedy Resistant GeneNot ApplicableNormalNOT DETECTEDThe [facility] CenterComment on above:Performed By: #### MI, CMP #### [facility] [address] [place] [address] Dr. Geri Lemus. monocytogenesNot detectedNormalNOT DETECTEDThe [facility] CenterComment on above:Performed By: #### MI, CMP #### [facility] [address] [place] [address] Dr. Geri PradhanMcr-1 Resistant GeneNot ApplicableNormalNOT DETECTEDThe [facility] CenterComment on above:Performed By: #### MI, CMP #### [facility] [address] [place] [address] Dr. Geri Epstein/CDetectedAbnormalNOT DETECTEDThe [facility] CenterComhenry ford [facility] hospital on above:Performed By: #### MI, CMP #### [facility] [address] [place] [address] Dr. Geri Epstein/C MREJNot ApplicableNormalNOT DETECTEDThe [facility] Comment on above:Performed By: #### MI, CMP #### [facility] [address] [place] [address] Dr. Geri Freeman meningitidisNot detectedNormalNOT DETECTEDThe [facility] CenterComhenry ford kingswood hospital on above:Performed By: #### MI, CMP #### [facility] [address] [place] [address] Dr. Geri Brito Resistant GeneNot ApplicableNormalNOT DETECTEDThe [facility] General Health CenterComment on above:Performed By: #### MI, CMP #### [facility] [address] [place] [address] Dr. Geri ArreolaFsofgOcl-41-psirHjh ApplicableNormalNOT DETECTEDThe [facility] Comment on above:Performed By: #### MI, CMP #### [facility] [address] [place] [address] Dr. Geri PradhanProteusNot detectedNormalNOT DETECTEDThe [facility] CenterComment on above:Performed By: #### MI, CMP #### [facility] [address] [address] [address] Geri Hinds. aeruginosaNot detectedNormalNOT DETECTEDThe [facility] CenterComment on above:Performed By: #### MI, CMP #### [facility] [address] [address] [address] Geri Mary. maltophiliaNot detectedNormalNOT DETECTEDThe [facility] Comment on above:Performed By: #### MI, CMP #### [facility] [address] [address] [address] Geri PradhanSalmonellaNot detectedNormalNOT DETECTEDThe [facility] Comment on above:Performed By: #### MI, CMP #### [facility] [address] [address] [address] Geri Olvera marcescensNot detectedNormalNOT DETECTEDThe [facility] CenterComment on above:Performed By: #### MI, CMP #### [facility] [address] [address] [address] Geri Bess:Right ACNormalThe [facility] CenterComment on above: Performed By: #### MI, CMP #### [facility] [address] [address] [address] Geri Le. aureusNot detectedNormalNOT DETECTEDSelect [facility] Comment on above:Performed By: #### MI, CMP #### [facility] [address] [address] [address] Geri Le. epidermidisDetectedCritically abnormalNOT DETECTEDThe [facility] CenterComment on above:Performed By: #### MI, CMP #### [facility] [address] [address] [address] Geri Le. lugdunensisNot detectedNormalNOT DETECTEDThe [facility] CenterComment on above:Performed By: #### MI, CMP #### [facility] [address] [address] [address] Geri MorganococcusDetectedCritically abnormalNOT DETECTEDThe [facility] CenterComment on above:Performed By: #### MI, CMP #### [facility] [address] [address] [address] Geri Lucia. agalactiaeNot detectedNormalNOT DETECTEDThe [facility] CenterComment on above:Performed By: #### MI, CMP #### [facility] [address] [address] [address] Geri Lucia. pneumoniaeNot detectedNormalNOT DETECTEDThe [facility] CenterComment on above:Performed By: #### MI, CMP #### [facility] [address] [address] [address] Geri Lucia. pyogenesNot detectedNormalNOT DETECTEDThe [facility] CenterComhenry ford [facility] on above:Performed By: #### MI, CMP #### [facility] [address] [place] [address] Dr. Geri LuciatococcusNot detectedNormalNOT DETECTEDThe [facility] on above:Performed By: #### MI, CMP #### [facility] [address] [place] [address] Dr. Geri Cardoza/Heath Resist. GeneNot ApplicableNormalNOT DETECTEDThe [facility] CenterComhenry ford [facility] on above:Performed By: #### MI, CMP #### [facility] [address] [place] [address] Dr. Geri Reeves Resistant GeneNot ApplicableNormalNOT DETECTEDThe [facility] CenterComhenry [facility] on above:Performed By: #### MI, CMP #### [facility] [address] [place] [address] Dr. Geri Garcia GASES BTYon MODENASAL CANNULANoAdena Pike Medical CenterComment on above:Performed By: #### RSPLUS #### [facility] [address] [place] [address] Dr. Geri Howard TESTPositiveBrecksville VA / Crille HospitalComment on above: Performed By: #### RSPLUS #### [facility] [address] [place] [address] Dr. Geri Locke excess Calc (Bld) [Moles/Vol]22.8 mmol/LCritically high -2.0-2.0The [facility] Health CenterComment on above:Performed By: #### RSPLUS #### [facility] [address] [place] [address] Dr. Geri SellersP Akron Children's HospitalComment on above: Performed By: #### RSPLUS #### [facility] [address] [address] [address] Geri PradhanUniversity Hospitals Cleveland Medical CenterComhenry ford [facility] on above:Performed By: #### RSPLUS #### [facility] [address] [place] [address] Dr. Geri JuanSkpnmNKG1WqjdiaBti77 Martinez StreetComhenry ford kingswood hospital on above:Performed By: #### RSPLUS #### [facility] [address] [place] [address] Dr. Geri PradhanHCO3 (Bld) [Moles/Vol]47.1 mmol/LCritically high22.0-26.0The [facility] CenterComhenry for[facility] on above:Performed By: #### RSPLUS #### [facility] [address] [place] [address] Dr. Ger[address] [place], [place] [address]Comhen[facility] on above:Performed By: #### RSPLUS #### [facility] [address] [place] [address] Dr. Geri BullockCincinnati Shriners HospitalComhenry ford [facility] hospital on above: Performed By: #### RSPLUS #### [facility] [address] [place] [address] Dr. Geri PradhanOxygen (Bld) [Partial pressure]95.8 mm[Hg]Phnfyu85.0-100.0The [facility] CenterComhenry ford [facility] hospital on above:Performed By: #### RSPLUS #### [facility] [address] [place] [address] Dr. Geri PradhanOxygen saturation in Blood98.0 %Cwigno12.0-100.0The [facility] Health CenterComment on above:Performed By: #### RSPLUS #### [facility] [address] [address] [address] Geri BenitezO271.5 mmHgCritically high35.0-45.0[facility] on above:Performed By: #### RSPLUS #### [facility] [address] [address] [address] Geri PradhanAdams County Regional Medical CenterComhenry ford kings[facility] hospital on above:Performed By: #### RSPLUS #### [facility] [address] [address] [address] Geri Shi (Bld)7.428 [pH]Normal7.350-7.450The [facility] CenterComhenry for[facility] on above:Performed By: #### RSPLUS #### [facility] [address] [place] [address] Dr. Geri KenneyThe Surgical Hospital at SouthwoodsComhenry ford [facility] hospital on above:Performed By: #### RSPLUS #### [facility] [address] [place] [address] Dr. Geri PradhanLakeHealth TriPoint Medical CenterComhenry ford [facility] hospital on above:Performed By: #### RSPLUS #### [facility] [address] [place] [address] Dr. Geri Yin [facility] HospitalComhen[facility] on above: Performed By: #### RSPLUS #### [facility] [address] [place] [address] Dr. Geri TurnerThe Surgical Hospital at SouthwoodsComhenry ford [facility] hospital on above:Performed By: #### RSPLUS #### [facility] [address] [place] [address] Dr. Geri PradhanSelect Medical Specialty Hospital [facility], IncComhenry ford [facility] hospital on above:Performed By: #### RSPLUS #### [facility] [address] [place] [address] Dr. Geri PradhanTrinity Health System East CampusComhenry ford [facility] hospital on above:Performed By: #### RSPLUS #### [facility] [address] [place] [address] Dr. Geri Dickson [id number] peptide B (Bld) [Mass/Vol]143.0 pg/mL Normal<=900.0The [facility] Beachwoodment on above:Performed By: #### RSPLUS #### [facility] [address] [place] [address] Dr. Geri Reeder BRAYAN ADMITon [id number] [Catalytic activity/Vol]21 U/L Critically bfp32-532Ifj [facility] CenterComment on above:Performed By: #### RSPLUS #### [facility] [address] [place] [address] Dr. Geri Watson.MB [Mass/Vol]0.78 ng/mLNormal<=3.60[facility] Comment on above:Performed By: #### RSPLUS #### [facility] [address] [place] [address] Dr. Geri PradhanHSTROP6.9 pg/mLNormal4.0-51.3The [facility] Health CenterComment on above:Result Comment: CUT-OFF POINTS HAVE BEEN ESTABLISHED BASED ON THE FOURTH UNIVERSAL DEFINITIONS OF MYOCARDIAL INFARCTION. THE UPPER REFERENCE LIMIT (URL) OF TROPONIN, DEFINED THE 99TH PERCENTILE OF cTnI DISTRIBUTION IN A REFERENCE POPULATION, HAS BEEN CONFIRMED THE DECISION THRESHOLD FOR AR DIAGNOSIS.Performed By: #### RSPLUS #### [facility] [address] [place] [address] Dr. Geri PradhanMYO20 ng/mLNormal9-82The [facility], Beachwoodment on above: Performed By: #### RSPLUS #### [facility] [address] [place] [address] Dr. Geri Cole AUTO DIFFon [id number] #0.0 103/ulNormal0.0-0.1The [facility] on above:Performed By: #### CBC #### [facility] [address] [place] [address] Dr. Geri PradhanBasophils/100 WBC (Bld)0.2 %Normal0.2-2.0[facility] Comment on above:Performed By: #### CBC #### [facility] [address] [address] [address] Geri Hunter #0.1 103/ulNormal0.0-0.7The [facility] CenterComment on above: Performed By: #### CBC #### [facility] [address] [place] [address] Dr. Geri Avilaosinophils/100 WBC (Bld)1.5 %Normal0.9-7.0The [facility] Comment on above:Performed By: #### CBC #### [facility] [address] [place] [address] Dr. Geri Avilarythrocyte distribution width (RBC) [Ratio]12.8 %Xcyski44.0-15.0 The [facility] CenterComment on above:Performed By: #### CBC #### [facility] [address] [place] [address] Dr. Geri PradhanHematocrit (Bld) [Volume fraction]41.8 %Lymqrq07.0-48.0The [facility] CenterComment on above:Performed By: #### CBC #### [facility] [address] [place] [address] Dr. Geri PradhanHemoglobin (Bld) [Mass/Vol]13.1 g/nZTzjnrk11.0-16.0The [facility] CenterComment on above:Performed By: #### CBC #### [facility] [address] [place] [address] Dr. Geri Le #0.05 10e3/ulCritically high0.00-0.03The [facility] Comment on above:Performed By: #### CBC #### [facility] [address] [place] [address] Dr. Geri Le %0.5 %Normal0.0-0.5The [facility] CenterComment on above: Performed By: #### CBC #### [facility] [address] [place] [address] Dr. Geri Joy #2.4 103/ulNormal1.2-3.8The [facility] CenterComment on above:Performed By: #### CBC #### [facility] [address] [address] [address] Geri Lorenzmphocytes/100 WBC (Bld)24.9 %Kgmjnr31.5-60.0[facility] NorthComment on above:Performed By: #### CBC #### [facility] [address] [place] [address] Dr. Geri Church DIFF REQNONormalThe [facility] CenterComment on above: Performed By: #### CBC #### [facility] [address] [place] [address] Dr. Geri Ya (RBC) [Entitic mass]27.2 mkSkgcon85.7-34.0The [facility] CenterComment on above:Performed By: #### CBC #### [facility] [address] [place] [address] Dr. Geri Ya (RBC) [Mass/Vol]31.3 g/uXSsfxsr18.9-35.2The [facility] CenterComment on above:Performed By: #### CBC #### [facility] [address] [place] [address] Dr. Geri Thompson (RBC) [Entitic vol]86.7 wDNcapiw00.0-99.0The [facility] CenterComment on above:Performed By: #### CBC #### [facility] [address] [place] [address] Dr. Geri Reyes #0.9 103/ulCritically high0.3-0.8ThCherrington Hospital Comment on above:Performed By: #### CBC #### [facility] [address] [place] [address] Dr. Geri Hewittocytes/100 WBC (Bld)8.9 %Normal1.7-12.0[facility] Comment on above:Performed By: #### CBC #### [facility] [address] [place] [address] Dr. Geri Hill #6.1 103/ulNormal1.4-6.5The [facility] CenterComment on above:Performed By: #### CBC #### [facility] [address] [place] [address] Dr. Geri Lozanoophils/100 WBC (Bld)64.0 %Mfqvwk94.0-75.0The [facility] CenterComment on above:Performed By: #### CBC #### [facility] [address] [place] [address] Dr. Geri Bautista mean volume (Bld) [Entitic vol]9.2 fLCritically low 9.5-13.5The [facility] CenterComment on above:Performed By: #### CBC #### [facility] [address] [place] [address] Dr. Geri PradhanPLT349 103/mxBjqnha795-572Hpy [facility] CenterComment on above: Performed By: #### CBC #### [facility] [address] [place] [address] Dr. Geri PradhanRBC4.82 106/ulNormal4.20-5.40The [facility] on above:Performed By: #### CBC #### [facility] [address] [place] [address] Dr. Geri PradhanWBC9.5 103/ulNormal4.0-11.0The [facility] on above: Performed By: #### CBC #### [facility] [address] [place] [address] Dr. Geri Hart BLOODon 16-63-2470Hipecbmrdnq examination of blood, cultureCulture Observations: NO GROWTH AT 5 DAYS.NormalThe [facility] CenterComment on above:Performed By: #### POCGLUC #### [facility] [address] [place] [address] Dr. Geri Hart URINEon 73-42-1894SGRDZTB URINECulture Observations: EDUARDO TO FOLLOW. Isolate 1 Pseudomonas aeruginosa 10,000 cfu/mL [facility]ron GeneralComment on above:Performed By: #### POCGLUC #### [facility] [address] [place] [address] Dr. Geri Sandoval URINE PROFILEon 82-13-5352Kcqmlrnru Ql (U)NegativeNormal NEGATIVESelect Medical Specialty Hospital [facility] NorthComment on above:Performed By: #### POCGLUC #### [facility] [address] [place] [address] Dr. Geri PradhanClarity (U)CLEARNormalCLEARSelect Medical Specialty Hospital - [facility] NorthComment on above: Performed By: #### POCGLUC #### [facility] [address] [place] [address] Dr. Geri Brumfieldlor (U)LT. YELLOWNormalYELLOWSelect Medical Specialty Hospital [facility] NorthComhenry [facility] on above:Performed By: #### POCGLUC #### [facility] [address] [place] [address] Dr. Geri Lopez micrscopic examination will be performed if indicated. NormalSelect Medical Specialty Hospital - [facility] NorthComment on above:Performed By: #### POCGLUC #### [facility] [address] [place] [address] Dr. Geri PradhanGlucose Ql (U)NegativeNormalNEGATIVESelect Medical Special[facility] NorthComhenry [facility] on above:Performed By: #### POCGLUC #### [facility] [address] [place] [address] Dr. Geri PradhanHemoglobin Ql (U)TRACE-INTACTAbnormalNEGATIVESelect Medical Special[facility] NorthComhenry ford [facility] on above:Performed By: #### POCGLUC #### [facility] [address] [place] [address] Dr. Geri PradhanKetones Ql (U)NegativeNormalNEGATIVESelect Medical Special[facility] NorthComment on above:Performed By: #### POCGLUC #### [facility] [address] [place] [address] Dr. Geri PradhanLEUKOCYTESMODERATEAbnormalNEGATIVESelect Medical [facility] NorthComhenry ford [facility] on above:Performed By: #### POCGLUC #### [facility] [address] [place] [address] Dr. Geri PradhanNitrite Ql (U)NegativeNormalNEGATIVESelect Medical Specialty Hospital - [facility] NorthComment on above:Performed By: #### POCGLUC #### [facility] [address] [address] [address] Geri PradhanpH (U)6.5 [pH]Normal5-9The [facility] CenterComment on above: Performed By: #### POCGLUC #### [facility] [address] [address] [address] Geri PradhanSPEC GRAVITY1.438Ocksuu0.005-<=1.025The [facility] CenterComment on above:Performed By: #### POCGLUC #### [facility] [address] [address] [address] Geri Bernabe PROTEINNegativeNormalNEGATIVE/ TRACEThe [facility] Comment on above:Performed By: #### POCGLUC #### [facility] [address] [place] [address] Dr. Geri Fuentes MICRO INDINDICATEDNormalThe [facility] CenterComment on above: Performed By: #### POCGLUC #### [facility] [address] [address] [address] Geri Zuritabilinogen Qn (U)0.2 {Lelia'U}/dLNormal0.2 - 1.0The [facility] CenterComment on above:Performed By: #### POCGLUC #### [facility] [address] [place] [address] Dr. Geri PradhanLACTATE/LACTIC ACIDon 56-95-3207Ibfejez [Moles/Vol]0.7 mmol/L Normal0.4-2.0The [facility] CenterComment on above:Performed By: #### MI, CMP #### [facility] [address] [place] [address] Dr. Geri PradhanPROF 14(COMP METB)on 34-84-7136Hwimjwh [Mass/Vol]3.3 g/dL Critically low3.4-5.0The [facility] CenterComment on above:Performed By: #### POCGLUC #### [facility] [address] [place] [address] Dr. Geri PradhanAlbumin/Globulin [Mass ratio]0.7 {ratio}NormalThe [facility] CenterComment on above:Performed By: #### POCGLUC #### [facility] [address] [address] [address] Geri Castanon [Catalytic activity/Vol]81 U/RXklkqv00-335Ykd [facility] CenterComment on above:Performed By: #### POCGLUC #### [facility] [address] [address] [address] Geri Walls [Catalytic activity/Vol]19 U/DDugrvu58-01Cfm [facility] CenterComment on above:Performed By: #### POCGLUC #### [facility] [address] [address] [address] Geri Zuleta gap [Moles/Vol]3.1 mmol/LNormalThe [facility] CenterComment on above:Performed By: #### POCGLUC #### [facility] [address] [address] [address] Geri PradhanAST [Catalytic activity/Vol]16 U/INxoykf66-53Chu [facility] CenterComment on above:Performed By: #### POCGLUC #### [facility] [address] [address] [address] Geri PradhanBilirubin [Mass/Vol]0.2 mg/dLNormal0.2-1.0The [facility] Comment on above:Performed By: #### POCGLUC #### [facility] [address] [address] [address] Geri PradhanCalcium [Mass/Vol]9.8 mg/dLNormal8.5-10.1The [facility] Comment on above:Performed By: #### POCGLUC #### [facility] [address] [address] [address] Geri PradhanChloride [Moles/Vol]93 mmol/LCritically zga69-083Zav [facility] CenterComment on above:Performed By: #### POCGLUC #### [facility] [address] [address] [address] Geri PradhanCO2 [Moles/Vol]45.3 mmol/LCritically high21.0-32.0[facility] NorthComment on above:Performed By: #### POCGLUC #### [facility] [address] [address] [address] Geri PradhanCreatinine [Mass/Vol]0.51 mg/dLCritically low0.55-1.02The [facility] CenterComment on above:Performed By: #### POCGLUC #### [facility] [address] [address] [address] Geri AvilaGFR-AF BELGIAN>60Normal>=60The [facility] CenterComment on above:Performed By: #### POCGLUC #### [facility] [address] [address] [address] Geri Zavala-NON AF BELGIAN>60Normal>=60The [facility] on above:Performed By: #### POCGLUC #### [facility] [address] [address] [address] Geri PradhanGlobulin (S) [Mass/Vol]4.8 g/dLNormalThe [facility] CenterComment on above:Performed By: #### POCGLUC #### [facility] [address] [address] [address] Geri PradhanGlucose [Mass/Vol]98 mg/eEUgoqvr84-511HdoSelect Medical Specialty Hospital [facility] [place] [facility] Comment on above:Performed By: #### POCGLUC #### [facility] [address] [address] [address] Geri PradhanPotassium [Moles/Vol]3.4 mmol/LCritically low3.5-5.1[facility] NorthComment on above:Performed By: #### POCGLUC #### [facility] [address] [address] [address] Geri PradhanProtein [Mass/Vol]8.1 g/dLNormal6.4-8.2The [facility] Comment on above:Performed By: #### POCGLUC #### [facility] [address] [address] [address] Geri PradhanSodium [Moles/Vol]138 mmol/VYglpik215-372Rgi [facility] Comment on above:Performed By: #### POCGLUC #### [facility] [address] [address] [address] Geri Allen nitrogen [Mass/Vol]11.0 mg/dLNormal7.0-18.0[facility] NorthComment on above:Performed By: #### POCGLUC #### [facility] [address] [address] [address] Geri Allen nitrogen/Creatinine [Mass ratio]21.6 mg/mgNoAdena Pike Medical CenterComment on above:Performed By: #### POCGLUC #### [facility] [address] [place] [address] Dr. Geri PradhanPROTIMEdeidra 95-60-0869WQU Coag (PPP) [Relative time]0.96 {INR} NormalSelect Medical Specialty Hospital - [place] NorthComment on above:Performed By: #### MI CMP #### [facility] [address] [place] [address] Dr. Geri Vela GUIDELINESSEE BELOWBrecksville VA / Crille HospitalComment on above:Result Comment: DESIRED INR: 2.0 - 3.0 CONDITIONS NOT LISTED BELOW 2.5 - 3.5 FOR PROSTHETIC HEART VALVE REPLACEMENT 2.5 - 3.5 RECURRENT THROMBOSIS Performed By: #### MI, CMP #### [facility] [address] [place] [address] Dr. Geri PradhanPT Coag (PPP) [Time]10.2 sNormal9.0-11.6The [facility] Comment on above:Performed By: #### MI, CMP #### [facility] [address] [place] [address] Dr. Geri Keita [id number] Coag (Bld) [Time]25.5 gCjsplq14.3-36.2[facility] [place] [facility] on above:Performed By: #### MI, CMP #### [facility] [address] [place] [address] Dr. Geri Lawler MICROSCOPIC ONLYon 28-33-7107DNEMTUVAPDGQ SEENNormalNONE SEENThe [facility] on above:Performed By: #### POCGLUC #### [facility] [address] [address] [address] Geri Vo identified Cx Nom (U)INDICATEDNoalThCherrington HospitalComhenry ford [facility] on above:Performed By: #### POCGLUC #### [facility] [address] [place] [address] Dr. Geri Lino SEENNormalNONE SEENSelect [facility]ty [facility] [place] on above:Performed By: #### POCGLUC #### [facility] [address] [place] [address] Dr. Geri Davisystals LM Nom (Urine sed)NONE SEENNormalNONE SEENSelect Medical Specialty [facility] [place] on above:Performed By: #### POCGLUC #### [facility] [address] [place] [address] Dr. Geri Avilapithelial cells LM Ql (Urine sed)FEWAbnormalNONE SEEN /RAREThe [facility] CenterComhenry ford [facility] on above:Performed By: #### POCGLUC #### [facility] [address] [place] [address] Dr. Geri Thompson SEENNormalNONE SEENSelect Medical Specialty Hospital [facility] [place] on above:Performed By: #### POCGLUC #### [facility] [address] [place] [address] Dr. Geri PradhanYcepuJMH6-5Gkhjua3-0Cnk [facility] on above:Performed By: #### POCGLUC #### [facility] [address] [place] [address] Dr. Geri PradhanCvxjzSVO53-58GkbtikoyLGBP SEENSelect Medical Specialty Hospital [facility] [place] on above: Performed By: #### POCGLUC #### [facility] [address] [place] [address] Dr. Geri PradhanXR CHEST 1 Von 10-85-6593XF CHEST 1 VEXAM: XR CHEST 1 V HISTORY: SHORTNESS OF BREATH COMPARISON: 02/15/2022 TECHNIQUE: Single view of the chest FINDINGS: Hyperinflation of the lungs. Scarring in the left apex, similar to prior CT. No definitive new areas of consolidation, pleural effusion or pneumothorax. IMPRESSION: Advanced emphysema. No acute findings. Electronically authenticated by: EAMON ANDREWS Date: 2022-09-01 20:18[facility] HospitalASPERGILLUS GALACTOMANNAN ANTIGEN DETECTon 05-28-2022 Aspergillus Ag, BAL/Serum0.07 IndexNormal0.00-0.49The [facility] CenterComment on above:Result Comment: Performed at: BNPerformed By: #### MI, CMP #### [facility] [address] [place] [address] Dr. Geri PradhanTest Information.NormalSelect Medical Specialty Hospital - [place] NorthComment on above: Result Comment: Performed at: TGPerformed By: #### MI, CMP #### [facility] [address] [place] [address] Dr. Geri Plasencia AB, QUANTITATIVE DIDon 75-93-7817Yeprxeuhkzs flavus NegativeNormalNeg:<1:1[facility] [place] NorthComment on above:Performed By: #### MI, CMP #### [facility] [address] [place] [address] Dr. Geri Plasencia fumigatusNegativeNormalNeg:<1:1[facility] [place] [facility] Comment on above:Performed By: #### MI, CMP #### [facility] [address] [place] [address] Dr. Geri Plasencia nigerNegativeNormalNeg:<1:1[facility] [place] [facility] Comment on above:Performed By: #### MI, CMP #### [facility] [address] [place] [address] Dr. Geri PradhanCULTGABRIELLE SPUTUMon 06-28-2675KREQNES SPUTUMCulture Observations: NORMAL RESPIRATORY NAVA.NormalThe [facility] Health CenterComment on above:Performed By: #### POCGLUC #### [facility] [address] [place] [address] Dr. Geri ShermanUTUM GRAM STAINon 46-05-1806BZFTRVPPVcflcpSwt [facility] Comment on above:Performed By: #### MI, CMP #### [facility] [address] [address] [address] Geri PradhanDIPHTHEROIDSBrecksville VA / Crille HospitalComhenry [facility] on above:Performed By: #### MI, CMP #### [facility] [address] [address] [address] Nevarez ChangEPITHELIALS<25[facility] HospitalComhenry [facility] on above: Performed By: #### MI, CMP #### [facility] [address] [address] [address] Geri PradhanFUNGAL ELEMENTSBrecksville VA / Crille HospitalComhenry [facility] hospital on above: Performed By: #### MI, CMP #### [facility] [address] [address] [address] Geri Mendosa NEG BACILLIBrecksville VA / Crille HospitalComhenry [facility]d [facility] hospital on above: Performed By: #### MI, CMP #### [facility] [address] [address] [address] Geri Mendosa NEG DIPPLOCOCCIBrecksville VA / Crille HospitalComhenry ford [facility] hospital on above: Performed By: #### MI, CMP #### [facility] [address] [address] [address] Geri Mendosa POS BACILLIBrecksville VA / Crille HospitalComhenry [facility]d [facility] hospital on above: Performed By: #### MI, CMP #### [facility] [address] [address] [address] Geri Mendosa POSITIVE COCCIMODERATEBrecksville VA / Crille HospitalComhenry [facility]d [facility] hospital on above:Performed By: #### MI, CMP #### [facility] [address] [address] [address] Geri Espinoza (Bld) [#/Vol]10*3/[facility] on above:Performed By: #### MI, CMP #### [facility] [address] [address] [address] Geri PradhanBRONCHOSCOPYon 10-71-9873Ygnhyxjiu ClinicCT Chest WO contraston 17-92-2005IAZHWBFEII: 1. Since 02/15/2022, unchanged irregular consolidative mass [...] any questions regarding this interpretation, please call [phone]. If you are unable to reach us at the number above, please feel free to contact [facility] at [phone].DIVISION OF RADIOLOGY* * *Final Report* * * DATE OF EXAM: May 06 2022 8:57AM [facility] 0541 - CT CHEST WO [...] No abnormality in the imaged upper abdomen. Surgical Services Tech (topogram) images: No additional findings. DIVISION OF RADIOLOGYProvider, [facility] [place] - 05/06/2022 * * *Final Report* * * DATE OF EXAM: May 06 2022 8:57AM [facility] 0541 - CT CHEST WO [...] No abnormality in the imaged upper abdomen. Surgical Services Tech (topogram) images: No additional findings. IMPRESSION IMPRESSION: [...] any questions regarding this interpretation, please call [phone]. If you are unable to reach us at the number above, please feel free to contact [facility] eRadiology at [phone]. [facility] CenterRadiology Study observation (narrative)[facility] Chest WO contrastOrdered By: Ccf Provider on 54-86-3278Laszzuplv ClinicCovid-19 PCR (CVDTBH)on 89-35-0830CCDA-CoV-2 (COVID-19) RNA KRUNAL+probe Ql (Unsp spec)Not detectedNormalNOT DETECTEDThe [facility] Health CenterComment on above:Result Comment: This test is not yet approved or cleared by the [place] FDA. When there are no FDA-approved or cleared tests available, and other criteria are met, FDA can make tests available under an emergency access mechanism called an Emergency Use Authorization (EUA). The EUA for this test is supported by the [place] Specialist of Health and Human Service's (HHS's) [...] of clinical signs and symptoms consistent with SARS-CoV-2.Performed By: #### RSPLUS #### [facility] [address] [place] [address] Dr. Geri Renee-19 PCR (CVDTBH)on 18-45-7766PTVF-CoV-2 (COVID-19) RNA KRUNAL+probe Ql (Unsp spec)Not detectedNormalNOT DETECTEDSelect Medical Specialty Hospital - [place] [facility] Comment on above:Result Comment: This test is not yet approved or cleared by the [place] FDA. When there are no FDA-approved or cleared tests available, and other criteria are met, FDA can make tests available under an emergency access mechanism called an Emergency Use Authorization (EUA). The EUA for this test is supported by the [place] Specialist of Health and Human Service's (HHS's) declaration that circumstances exist to justify the emergency use of in vitro diagnostics for the detection and/or diagnosis of the virus that causes COVID- 19. This EUA will remain in effect (meaning [...] of clinical signs and symptoms consistent with SARS-CoV-2.Performed By: #### EVA STARK #### [facility] [address] [place] [address] Dr. Geri Capone AND B [facility] 39-74-8569WMGCCKYMQXWEAOhio State Harding HospitalComment on above:Result Comment: Negative for Flu A protein angiten. Infection due to Flu A cannot be ruled out. FluA angiten in the sample may be below the detection limit of the test.Performed By: #### EVA STARK #### [facility] [address] [place] [address] Dr. Geri AlvarezUBNEGANIYAH [facility] CenterComhenry [facility] on above: Result Comment: Negative for Flu B protein antigen. Infection due to Flu B cannot be ruled out. FluB antigen in the sample may be below the detection limit of the test.Performed By: #### MI, CMP #### [facility] [address] [place] [address] Dr. Geri Capone AGNegativeNormalNEGATIVE SEE COMMENTThe [facility] on above:Performed By: #### MI, CMP #### [facility] [address] [place], [place] [address] Dr. Geri PradhanINFLUEJAYLEEN Joe AGNegativeNormalNEGATIVE SEE COMMENTThe [facility] on above:Performed By: #### MI, CMP #### [facility] [address] [place], [place] [address] Dr[address] Geri PradhanINTERNAL CONTROLSWithin Normal LimitsNormalWithin Normal Limits The [facility] CenterComment on above:Performed By: #### MI, CMP #### [facility] [address] [place], [place] [address] Dr[address] Geri PradhanGLUCOSE, BLOOD (POC)on 07-13-9650Pmrsqpr [Mass/Vol]84 mg/dL74 - 99 mg/dLOhiohealth Grant Medical CenterComhenry ford kingswood hospital on above:Location:[facility], [address] [place] [address] , [place], [place], [address] The Accu-Chek Inform II glucose meter has [...] blood gas instrument) in the above situations. [facility] CenterPE+CT Guidance for localization of tumor of Skull base to mid-thigh-- W 18F-FDG [place] 95-66-4009KFQTXWPQFT: Head and Neck: * No evidence of [...] any questions regarding this interpretation, please call [phone]. If you are unable to reach us at the number above, please feel free to contact [facility] at [phone].DIVISION OF RADIOLOGY* * *Final Report* * * DATE OF [...] MUSCULOSKELETAL: There are no hypermetabolic osseous lesions. Surgical Services Tech (topogram) images: No additional findings. DIVISION OF RADIOLOGYProvider, [facility] [place] - 03/07/2022 * * *Final Report* * [...] MUSCULOSKELETAL: There are no hypermetabolic osseous lesions. Surgical Services Tech (topogram) images: No additional findings. IMPRESSION IMPRESSION: [...] allowing us to partici (more content not included)...[facility] CenterRadiology Study observation (narrative)[facility] CenterPET+CT Guidance for localization of tumor of Skull base to mid-thigh-- W 18F-FDG IVOrdered By: Ccf Provider on 48-38-3027Lycszuwfd ClinicCT CHEST W CONon 41-17-7443KB CHEST W CON EXAMINATION: CT CHEST W CON HISTORY: Primary malignant neoplasm of [...] Electronically authenticated by: JULES RAMIREZ Date: 2022-02-17 08:02[facility] HospitalCREATININEon 29-94-3423Lslgurvedt [Mass/Vol]0.52 mg/dL Critically low0.55-1.02[facility] Hospitalment on above:Performed By: #### RSPLUS #### [facility] [address] [address] [address] Geri AvilaGFR-AF BELGIAN>60Normal>=60The [facility] Health CenterComment on above:Performed By: #### RSPLUS #### [facility] [address] [address] [address] Geri AvilaGFR-NON AF BELGIAN>60Normal>=60The [facility] Health CenterComment on above:Performed By: #### RSPLUS #### [facility] [address] [address] [address] Geri Hart SPUTUMon 33-35-9880ZCXOOSI SPUTUMIsolate 1 Milagros albicans Light growth [facility] GeneralCom[facility] on above:Performed By: #### SPUTCX #### [facility] [address] [place] [address] Dr. Geri Torres GRAM STAINon 38-29-9140NSDGHCGSVszkmgMkhSelect Medical Specialty Hospital - [place] on above:Performed By: #### RSPLUS #### [facility] [address] [address] [address] Geri BryantTHERHocking Valley Community HospitalComment on above:Performed By: #### RSPLUS #### [facility] [address] [address] [address] Geri AvilaPITHELIALS<25[facility] HospitalComment on above: Performed By: #### RSPLUS #### [facility] [address] [address] [address] Geri WillinghamNGAL ELEMENTSBrecksville VA / Crille HospitalComment on above: Performed By: #### RSPLUS #### [facility] [address] [address] [address] Geri Mendosa NEG [facility] HospitalComment on above: Performed By: #### RSPLUS #### [facility] [address] [address] [address] Geri Mendosa NEG DIPPLOCOCCINoMercy Health – The Jewish Hospital HospitalComment on above: Performed By: #### RSPLUS #### [facility] [address] [address] [address] Geri Mendosa POS BACILLINoAdena Pike Medical CenterComment on above: Performed By: #### RSPLUS #### [facility] [address] [address] [address] Geri Mendosa POSITIVE COCCIMODERATEBrecksville VA / Crille HospitalComment on above:Performed By: #### RSPLUS #### [facility] [address] [address] [address] Geri PradhanWBC (Bld) [#/Vol]10*3/uLNoAdena Pike Medical CenterComment on above:Performed By: #### RSPLUS #### [facility] [address] [place] [address] Dr. Geri PradhanCovid-19 PCR (CVDTBH)on 66-08-9011YWET-CoV-2 (COVID-19) RNA KRUNAL+probe Ql (Unsp spec)DetectedCritically abnormalNOT DETECTEDThe [facility] Health CenterComhenry ford [facility] on above:Result Comment: This test is not yet approved or cleared by the [place] FDA. When there are no FDA-approved or cleared tests available, and other criteria are met, FDA can make tests available under an emergency access mechanism called an Emergency Use Authorization (EUA). The EUA for this test is supported by the [place] of Health and Human Service's (HHS's) declaration [...] no longer be used). Performed By: #### CVDTBH #### [facility] [address] [place] [address] Dr. Geri PradhanCT Chest W contrast [place] 75-43-9969ZVAROOEDZO: 1. Improved appearance to left upper lobe [...] any questions regarding this interpretation, please call [phone]. If you are unable to reach us at the number above, please feel free to contact [facility] at [phone].DIVISION OF RADIOLOGY* * *Final Report* * * DATE OF EXAM: May 29 2021 11:14AM [facility] 0539 - CT CHEST W [...] images through the upper abdomen appears stable. Surgical Services Tech (topogram) images: No additional findings. DIVISION OF RADIOLOGYProvider, [facility] [place] - 05/30/2021 * * *Final Report* * * DATE OF EXAM: May 29 2021 11:14AM [facility] 0539 - CT CHEST W [...] images through the upper abdomen appears stable. Surgical Services Tech (topogram) images: No additional findings. IMPRESSION IMPRESSION: [...] any questions regarding this interpretation, please call [phone]. If you are unable to reach us at the number above, please feel free to contact [facility] eRadiology at [phone]. [facility] Chest W contrast IVOrdered By: Ccf Provider on 05-30-2021 [facility] Chest W contrast [place] 86-88-8737Lcaieyqtp Study observation (narrative)[facility] CenterGeneral Surgery Office/Clinic Noteon 03-25-2021 General Surgery Office/Clinic NoteChief Complaint in-office excisional biopsy HPI Staff Presents for in-office excisional biopsy right religious and right lower extremity. No change since last evaluation. History of Present Illness here for excision of right religious and RLE lesions; no change since recent [...] and draped; anesthetized with 1% lidocaine; right religious lesion excised in an elliptical fashion down to subcutaneous fat, length 6mm; closed with interrupted 5-0 nylon sutures; RLE lesion excised and closed in an identicalmanner, length 8 mm; tolerated well, ebl < [...] infarction: Brother. Cardiac arrest: Mother, Father and Sister.[facility] Comment on above:Result Comment: Electronically Signed By: JIM DAVENPORT, Jose Domínguez\Date and Time Signed: 03/25/21 17:02 ESTAmbulatory Clinical Summaryon 45-97-7830Mkandxfgly Clinical Summary {tu-[id number]-2i-02-3l-u5-kc-78-k4-go-9d-1d-ea-84}CD:[id number] County HospitalGeneral Surgery Office/Clinic Noteon 93-77-8308Yzhdzqv Surgery Office/Clinic NoteChief Complaint follow up in-office excisional biopsy HPI Staff 11 day post operative follow up post in-office excisional biopsy right religious and right lower extremity. Sutures intact. Denies bleeding or drainage from incision site. History of Present Illness 11 days s/p excisional biopsy changing lesions right religious and right lower extremity; doing well, no drainage; religious lesion basal cell carcinoma, margins not commented [...] infarction: Brother. Cardiac arrest: Mother, Father and Sister.[facility] Comment on above:Result Comment: Electronically Signed By: JIM DAVENPORT, Jose Domínguez\Date and Time Signed: 02/12/21 13:16 EDTPathology Noteon 02-06-2021 Pathology [id number]:127[facility] CenterAmbulatory Clinical Summaryon 57-82-6080Qeyebaemly Clinical Summary{k0-76-37-43-me-5z-52-ev-qm-07-78-h9-01-28-2b-49}CD:[id number] Hospitals Lake West Medical CenterAmbulatory Clinical Summary {81-60-23-78-uh-e8-8t-a5-20-21-0q-q6-78-a1-ab-81}CD:[id number]y Hospitals Lake West Medical CenterPhysician Referralon 65-77-5444Yizieeioz Referral [id number]:127[facility] Medical CenterECG01on 01-69-9432Cnzzdvq mass concNAME : JOSE A GUERREROYPID : [id number] : 1960 Gender : FemaleRace : CaucasianORD : [id number] Procedure Date : Mar 02 2018 12:58:22Edit Date : Mar 02 2018 14:15:37 Diagnosis:NORMAL SINUS RHYTHMRIGHT ATRIAL ENLARGEMENTMINIMAL VOLTAGE CRITERIA FOR LVH, MAY BE NORMAL VARIANTBORDERLINE ECGNO PREVIOUS ECGS AVAILABLEConfirmed by CORNELIA ROGERS M.D. ([id number]) on 03/02/2018 2:15:27 PM Ventricular Rate : 86 BPMAtrial Rate : 86 BPMP- R Interval : 178 msQRS Duration : 72 msQ-T Interval : 374 msQTC Calculati on(Bezet) : 447 msP [place] : 88 degreesR [place] : 78 degreesT [place] : 79 degrees Test Reason : Location : 49 : [place] Overread By : KEN Maier,VIJAYEdited By : KEN Maier,VIJAYReferred By : DUGLAS FERNANDEZAcquired by : HEATHER GILLESPIEBoston State Hospital Vital Signs Date TimeVital SignValuePerforming RbroinbbwEjlcljdd80-78-7641 11:15-0400Body .56 cmAdithya Kenyon MD Work Phone: [phone] [place], [place] 04[address]107-17-2025 11:15-0400 Body mass index (BMI) [Ratio]16.1 kg/z2JtfwljhAdithya Kenyon MD Work Phone: [phone])[address] [place], [place] 0467107-17-2025 11:15-0400 Body .69 kgAdithya Kenyon MD Work Phone: [phone])[address] [place], [place] 04[address]107-17-2025 11:15-0400 Diastolic blood kkvobipf70 mm[Hg]Adithya Kenyon MD Work Phone: [phone] [place], [place] 04[address]107-17-2025 11:15-0400 Heart rate94 /Enrique Kenyon MD Work Phone: [phone])[address] [place], [place] 0467107-17-2025 11:15-0400 Inhaled oxygen flow rate2 L/Enrique Kenyon MD Work Phone: [phone] [place], [place] 0467107-17-2025 11:15-0400 Respiratory rate20 /Enrique Kenyon MD Work Phone: [phone] [place], [place] 04[address]107-17-2025 11:15-0400 SaO2% (BldA) [Mass fraction]96 %Adithya Kenyon MD Work Phone: [phone] [place], [place] 04[address]107-17-2025 11:15-0400 Systolic blood apuhyvbl227 mm[Hg]Adithya Kenyon MD Work Phone: [phone])[address] [place], [place] 04[address]105-06-2025 11:06-0400 Body diiiau682.6 cmCarla Montague MD Work Phone: [phone]05-06-2025 11:06-0400Body mass index (BMI) [Ratio]16.48 kg/f6UnkvpjCarla Montague MD Work Phone: [facility] SystemWopqeitezx03-42-0237 11:06-0400Body hjbtyr93.55 kgCarla Montague MD Work Phone: [phone] SystemYzavnmolqc66-13-5577 11:06-0400Diastolic blood fqceerly06 mm[Hg]Carla Montague MD Work Phone: [phone] SystemFjxlzyvhla36-76-0198 11:06-0400Heart rhmz229 /min Carla Montague MD Work Phone: [phone] SystemVufywmmwvl51-12-0113 11:06-0400Systolic blood vhreuxob199 mm[Hg]Carla Montague MD Work Phone: [phone]-[facility] SystemCzxahnxwgy98-11-7461 11:12-0500Body .[address] [facility]03-06-2025 11:12-0500Body mass index (BMI) [Ratio]15.8 kg/l9JiamijafbMount St. Mary Hospital03-06-2025 11:12-0500Body .[address] [facility]03-06-2025 11:12-0500Diastolic blood cspeetyh45 mm[Hg][facility]03-06-2025 11:12-0500 Heart cjqj492 /[facility]03-06-2025 11:12-0500 Respiratory rate20 /[facility]03-06-2025 11:12-0500 SaO2% (BldA) [Mass fraction]93 %[facility]03-06-2025 11:12-0500Systolic blood zjohlssl372 mm[Hg][facility] 05-27-2024 14:02-0500Body mass index (BMI) [Ratio]16.12 kg/m2Abdi Israel MD Work Phone: [facility]02-14-2025 14:02-0500Body temperature 97.81 [degF]Abdi Israel MD Work Phone: [facility]02-14-2025 14:02-0500Body eajois20.6 kgAbdi Israel MD Work Phone: [facility]02-14-2025 14:02-0500Diastolic blood dpjxigpi11 mm[Hg]Abdi Israel MD Work Phone: [facility]02-14-2025 14:02-0500Heart cudp080 /Brandyn Israel MD Work Phone: [facility]02-14-2025 14:02-0500Respiratory rate 18 /minScamden Israel MD Work Phone: [facility]02-14-2025 14:02-1046OoM1% (BldA) [Mass fraction]95 %Abdi Israel MD Work Phone: [facility]02-14-2025 14:02-0500Systolic blood ifeykobw255 mm[Hg]Abdi Israel MD Work Phone: [facility]11-19-2024 11:10-0500Body .6 cmCarla Montague MD Work Phone: [place] [address]Mrolxeoukc81-74-8365 11:10-0500Body mass index (BMI) [Ratio]16.31 kg/r1BhwgwtCarla Montague MD Work Phone: [facility] SystemYpgnvbgxhd13-37-3781 11:10-0500Body .09 kgCarla Montague MD Work Phone: [place] [address]Helogffoph04-85-6114 11:10-0500Diastolic blood mm[Hg]Carla Montague MD Work Phone: [place] [address]Wnvbcjrymt17-60-2140 11:10-0500Systolic blood tbhigcib381 mm[Hg]Carla Montague MD Work Phone: [facility] SystemCsjphubklf90-71-0104 14:30-0500Body .56 cmAdithya Kenyon MD Work Phone: [phone] [place], [place] 8361711-12-2024 14:30-0500 Body mass index (BMI) [Ratio]15.7 kg/g7RxggawjAdithya Kenyon MD Work Phone: [phone] [place], [place] 8361711-12-2024 14:30-0500 Body xvkvty38.73 kgAdithya Kenyon MD Work Phone: [phone] [place], [place] 8361711-12-2024 14:30-0500 Diastolic blood bvljrssi27 mm[Hg]Adithya Kenyon MD Work Phone: [phone] [place], [place] 8361711-12-2024 14:30-0500 Heart oczq489 /Enrique Kenyon MD Work Phone: [phone] [place], [place] 8361711-12-2024 14:30-0500 Inhaled oxygen flow rate2 L/Enrique Kenyon MD Work Phone: [phone] [place], [place] 8361711-12-2024 14:30-0500 Respiratory rate20 /Enrique Kenyon MD Work Phone: [phone])380-[address] [place], [place] 8361711-12-2024 14:30-0500 SaO2% (BldA) [Mass fraction]96 %Adithya Kenyon MD Work Phone: [phone] [place], [place] 8361711-12-2024 14:30-0500 Systolic blood yxvxprjn578 mm[Hg]Adithya Kenyon MD Work Phone: [phone] [place], [place] 8361710-18-2024 13:46-0400 Body bvweprsawzz39.7 [degF]Abdi Israel MD Work Phone: [facility]10-18-2024 13:46-0400Diastolic blood ocmqsvyf20 mm[Hg]Abdi Israel MD Work Phone: [facility]10-18-2024 13:46-0400Heart bzpv462 /Brandyn Israel MD Work Phone: [facility]10-18-2024 13:46-0400Respiratory rate 16 /Brandyn Israel MD Work Phone: [facility]10-18-2024 13:46-6263HvW6% (BldA) [Mass fraction]93 %Abdi Israel MD Work Phone: [facility] CenterComment on above:2 pjiupm00-53-4501 13:46-0400Systolic blood issifpuu745 mm[Hg]Abdi Israel MD Work Phone: [facility]09-12-2024 12:00-0400Diastolic blood oaanzbwd38 mm[Hg]MD Adithya Kenyon Work Phone: [phone] [place], [place] 8361709-12-2024 12:00-0400 Heart cjgv550 /minMD Adithya Kenyon Work Phone: [phone] [place], [place] 0467109-12-2024 12:00-0400 Inhaled oxygen flow rate2 L/minMD Adithya Kenyon Work Phone: [phone]09-12-2024 12:00-0400 Respiratory rate18 /minMD Adithya Kenyon Work Phone: [phone] [place], [place] 0467109-12-2024 12:00-0400 SaO2% (BldA) [Mass fraction]96 %MD Adithya Kenyon Work Phone: [phone])[address] [place], [place] 0467109-12-2024 12:00-0400 Systolic blood mm[Hg]MD Adithya Kenyon Work Phone: [phone])[address] [place], [place] 0467109-12-2024 06:00-0400 Body cbckjo51.5 kgMD Adithya Kenyon Work Phone: [phone] [place], [place] 0467109-12-2024 04:00-0400 Body vhwucecuxfk43.9 [degF]MD Adithya Kenyon Work Phone: [phone] [place], [place] 0467109-09-2024 13:57-0400 Body .56 cmMD Adithya Kenyon Work Phone: [phone]09-08-2024 22:30-0400 Diastolic blood sstmbosw82 mm[Hg]MD Adithya Kenyon Work Phone: [phone]09-08-2024 22:30-0400 Heart uqpp932 /minMD Adithya Kenyon Work Phone: [phone]09-08-2024 22:30-0400 Inhaled oxygen flow rate2 L/minMD Adithya Kenyon Work Phone: [phone] [place], [place] 0467109-08-2024 22:30-0400 Respiratory rate18 /minMD Adithya Kenyon Work Phone: [phone] [place], [place] 0467109-08-2024 22:30-0400 SaO2% (BldA) [Mass fraction]94 %MD Adithya Kenyon Work Phone: [phone])[address] [place], [place] 0467109-08-2024 22:30-0400 Systolic blood southwer877 mm[Hg]MD Adithya Kenyon Work Phone: [phone])[address] [place], [place] 0467109-08-2024 21:00-0400 Inhaled oxygen npkzlcvavxmxp45 %MD Adithya Kenyon Work Phone: [phone] [place], [place] 0467109-08-2024 20:01-0400 Body turqhm549.56 cmMD Adithya Kenyon Work Phone: 1(435)[address] [place], [place] 0467109-08-2024 20:01-0400 Body zixnbs09.18 kgMD Adithya Kenyon Work Phone: [phone]09-08-2024 19:49-0400 Body kwmbdbbmili75.3 [degF]MD Adithya Kenyon Work Phone: [phone])[facility]08-22-2024 09:31-04[address] [facility]08-22-2024 09:31-0400Body mass index (BMI) [Ratio]16 kg/y8CdcyewseeMount St. [facility]08-22-2024 09:31-0400Body dnyevrmehkb52.8 [degF][facility]08-22-2024 09:31-0400Body wlovbg25.[address] [facility]08-22-2024 09:31-0400Diastolic blood tmbylfdp37 mm[Hg][facility] 12-03-2023 09:31-0400Heart zvpq579 /[facility] 12-03-2023 09:31-0400Inhaled oxygen flow rate2 L/[facility]08-22-2024 09:31-0400Respiratory rate20 /[facility]08-22-2024 09:31-8393UhP4% (BldA) [Mass fraction]94 %[facility]08-22-2024 09:31-0400Systolic blood pvnxarig713 mm[Hg][facility]08-06-2024 14:50-0400Body gupyvr633.6 cmPacc 1 Work Phone: [phone]08-06-2024 14:50-0400Body mass index (BMI) [Ratio]16.01 kg/m2Pacc 1 Work Phone: [phone]08-06-2024 14:50-0400Body temperature 97.2 [degF]Pacc 1 Work Phone: [phone]08-06-2024 14:50-0400Body mdbopo34.3 kgPacc 1 Work Phone: [phone]08-06-2024 14:50-0400Diastolic blood glxayknp83 mm[Hg]Pacc 1 Work Phone: [phone]08-06-2024 14:50-0400Heart vgni196 /minPacc 1 Work Phone: [phone]08-06-2024 14:50-0400Respiratory rate 16 /minPacc 1 Work Phone: [phone]08-06-2024 14:50-5110ShL3% (BldA) [Mass fraction]95 %Pacc 1 Work Phone: [phone] CenterComment on above:0q69-92-1500 14:50-0400Systolic blood abgaglqx979 mm[Hg]Pacc 1 Work Phone: [phone]06-18-2024 13:29-0400Body diyiyn336.[address] [facility]06-18-2024 13:290400Body mass index (BMI) [Ratio]16.1 kg/l5IiuyeaqjbMount St. [facility]06-18-2024 13:29Body lfmvitqncwj02.2 [degF][facility]06-18-2024 13:Body egamrc01.[address] [facility]06-18-2024 13:29040Diastolic blood vvmazcbx21 mm[Hg][facility]06-18-2024 13:290400 Heart rate92 /[facility]06-18-2024 13:290400 Respiratory rate20 /[facility]06-18-2024 13:290400 SaO2% (BldA) [Mass fraction]91 %[facility]06-18-2024 13:29040Systolic blood mm[Hg][facility] 09-16-2023 11:30-0400Diastolic blood ynbwqymg70 mm[Hg]Khushboo Mcintyre MD, MD Work Phone: [phone]06-05-2024 11:30-0400Heart buni478 /Berry Mcintyre MD, MD Work Phone: [phone]06-05-2024 11:30-0400Respiratory rate 16 /Berry Mcintyre MD, MD Work Phone: [phone]06-05-2024 11:30-5875ObR6% (BldA) [Mass fraction]97 %Khushboo Mcintyre MD, MD Work Phone: [phone]06-05-2024 11:30-0400Systolic blood zhnuvuae565 mm[Hg]Khushboo Mcintyre MD, MD Work Phone: [phone]06-05-2024 09:02-0400Body temperature 97.5 [degF]Khushboo Mcintyre MD, MD Work Phone: [phone]02-04-2024 12:14-0500Heart wkkw047 /[facility]02-04-2024 12:14-0500Respiratory rate22 /[facility]02-04-2024 11:04-0500Diastolic blood fhytdwap05 mm[Hg][facility]02-04-2024 11:04-0500Inhaled oxygen flow rate2 L/[facility]02-04-2024 11:04-0500 SaO2% (BldA) [Mass fraction]97 %[facility]02-04-2024 11:04-0500Systolic blood zipztahu293 mm[Hg][facility] 05-17-2023 07:32-0500Body mdpvlqehiew56.4 [degF][facility]02-04-2024 03:19-0500Body peqkmb51.[address] [facility] 05-14-2023 16:31-0500Body mmqgyr037.[address] [facility] 05-14-2023 01:40-0500Diastolic blood ioaazajj30 mm[Hg][facility]02-01-2024 01:40-0500Heart naib767 /[facility] 05-14-2023 01:40-0500Inhaled oxygen flow rate2 L/[facility]02-01-2024 01:40-0500Respiratory rate22 /[facility]02-01-2024 01:40-9127YqG2% (BldA) [Mass fraction]91 %[facility]02-01-2024 01:40-0500Systolic blood wmyvenyc439 mm[Hg][facility]01-31-2024 16:49-0500Body qqbizn272.[address] [facility]01-31-2024 16:49-0500Body ppmziphfjpw33.9 [degF][facility]01-31-2024 16:49-0500Body .[address] [facility]08-17-2023 10:34-0400Body upkvkhxbljx57.01 [degF]Abdi Israel MD Work Phone: [facility]08-17-2023 10:34-0400Body makxqk26.18 kgAbdi Israel MD Work Phone: [facility]08-17-2023 10:34-0400Diastolic blood uyhsjmzt19 mm[Hg]Abdi Israel MD Work Phone: [facility]08-17-2023 10:34-0400Heart lhzn247 /minScamden Israel MD Work Phone: [facility]08-17-2023 10:34-0400Respiratory rate 20 /minScamden Israel MD Work Phone: [facility]08-17-2023 10:34-1494UtE2% (BldA) [Mass fraction]89 %Abdi Israel MD Work Phone: [facility]08-17-2023 10:34-0400Systolic blood diofkhhg754 mm[Hg]Abdi Israel MD Work Phone: [facility]03-16-2023 15:00-0400Body ndriub010.56 cmMichaeophelia Conde Other [employer] Other 03-16-2023 15:00-0400Body mass index (BMI) [Ratio] 18.02 kg/o6Zvkqoxukaleb Conde Other [employer] Other 03-16-2023 15:00-0400Body eafxswuvzya42.2 [degF] Jose Conde Other [employer] Other 03-16-2023 15:00-0400Body zpexae41.63 kgMichael Elton Other [employer] Other 03-16-2023 15:00-0400Diastolic blood mm[Hg] Jose Conde Other [employer] Other 03-16-2023 15:00-0400Systolic blood cxlngvul972 mm[Hg] Jose Conde Other [employer] Other 02-20-2023 14:09-0500Body amycsjaojuj98.7 [degF]Abdi Israel MD Work Phone: [facility]02-20-2023 14:09-0500Body jmqtas65.35 kgAbdi Israel MD Work Phone: [facility]02-20-2023 14:09-0500Diastolic blood tejfclpy16 mm[Hg]Abdi Israel MD Work Phone: [facility]02-20-2023 14:09-0500Heart xeld762 /minScamden Israel MD Work Phone: [facility]02-20-2023 14:09-0500Respiratory rate 18 /minScamden Israel MD Work Phone: [facility]02-20-2023 14:09-6783IhM7% (BldA) [Mass fraction]89 %Abdi Israel MD Work Phone: [facility]02-20-2023 14:09-0500Systolic blood flgkthge310 mm[Hg]Abdi Israel MD Work Phone: [facility]02-09-2023 15:15-0500Body bceiiz341.56 cmMichael Blank Other [employer] Other 02-09-2023 15:15-0500Body mass index (BMI) [Ratio] 18.02 kg/s1Eatrhkq Blank Other [employer] Other 02-09-2023 15:15-0500Body snwclxefjft49.2 [degF] Jose Conde Other [employer] Other 02-09-2023 15:15-0500Body idtknb40.63 kgMichael Blank Other [facility] [employer] Other 02-09-2023 15:15-0500Diastolic blood ilodctsg60 mm[Hg] [facility] [employer] Other 02-09-2023 15:15-0500Systolic blood qmangbnp738 mm[Hg] Jose Conde [facility] [employer] Other 01-27-2023 10:30-0500Diastolic blood tbcvqcyg29 mm[Hg] Yasmin Waggoner MD Work Phone: [facility]01-27-2023 10:30-0500Heart rate99 /min Yasmin Waggoner MD Work Phone: [facility]01-27-2023 10:30-0500Respiratory rate 16 /minSpayam Waggoner MD Work Phone: [facility]01-27-2023 10:30-2895PpQ5% (BldA) [Mass fraction]97 %Yasmin Waggoner MD Work Phone: [facility]01-27-2023 10:30-0500Systolic blood xhpronjo314 mm[Hg]Yasmin Waggoner MD Work Phone: [facility]01-27-2023 10:02-0500Body temperature 98.2 [degF]Yasmin Waggoner MD Work Phone: [facility]01-27-2023 07:03-0500Body rlivxf007.6 cmSpayam Waggoner MD Work Phone: [facility]01-27-2023 07:03-0500Body fsmjan48.63 kgYasmin Waggoner MD Work Phone: [facility]12-02-2022 11:22-0500Body temperature 97.81 [degF]Abdi Israel MD Work Phone: [facility]12-02-2022 11:22-0500Body vksreg80.9 kgAbdi Israel MD Work Phone: [facility]12-02-2022 11:22-0500Heart copd899 /minScamden Israel MD Work Phone: [facility]12-02-2022 11:22-0500Respiratory rate 16 /minScamden Israel MD Work Phone: [facility]12-02-2022 11:22-2823PjN2% (BldA) [Mass fraction]96 %Abdi Israel MD Work Phone: [phone]02-24-2022 10:01-0500Body temperature 97.7 [degF]Abdi Israel MD Work Phone: [phone]02-24-2022 10:01-0500Body qzvlti46.71 kgAbdi Israel MD Work Phone: [facility]02-24-2022 10:01-0500Diastolic blood mm[Hg]Abdi Israel MD Work Phone: [facility]02-24-2022 10:01-0500Heart rate97 /min Abdi Israel MD Work Phone: [facility]02-24-2022 10:01-0500Respiratory rate 20 /minScamden Israel MD Work Phone: [facility]02-24-2022 10:01-7188GwK3% (BldA) [Mass fraction]93 %Abdi Israel MD Work Phone: [facility]02-24-2022 10:01-0500Systolic blood olhfktxd699 mm[Hg]Abdi Israel MD Work Phone: [facility] Encounters Encounter DateEncounter TypeCare ProviderFacilityStart: 10-27-2024 End: 45-09-8819clyoxyomjdKxswimk M Hoy MD Work Phone: [facility] Work Phone: Start: 10-27-2024 End: 47-97-5525Zvsbbry encounter procedureDenver Rasmussen MD-[facility] Work Phone: Start: 08-16-2024 End: 91-61-4751Ftrepj Keyur Montague MD Work Phone: [facility] CI ENTStart: 08-16-2024 End: 27-63-5428Wxdjmc Keyur Montague MD Work Phone: [facility]OM[facility] CI ENTStart: 08-16-2024 End: 51-82-5486Acpehdu encounter procedureCarla Montague MD Work Phone: [facility] CI ENTComment on above:Bilateral impacted cerumen (Primary Dx)Start: 08-16-2024 End: 45-53-5525ewncdtwfplHVOKBX H TIMMISNot AvailableStart: 07-28-2024 End: 82-98-5419XpwwhoHejfwo K Strack DO Work Phone: [facility] SH PULMComment on above:Chronic obstructive pulmonary disease, unspecified COPD type (CMS/HCC)Start: 07-02-2024 End: 24-07-2302DkmcgsPqtwve K Strack DO Work Phone: [facility] SH PULMComment on above:Chronic obstructive pulmonary disease, unspecified COPD type (CMS/HCC)Start: 06-16-2024 End: 27-64-4578kdqwtskwuqZhfpveynoC[facility] Work Phone: Start: 06-16-2024 End: 73-75-1918Nlkpvwl encounter procedureBianca Physician Group-[facility] Work Phone: Start: 05-27-2024 End: 10-09-4488qdcoegphcaNICC RAJANFacility:[facility] Hospitaltart: 05-27-2024 End: 46-11-6129Agiluuz encounter procedureScamden Israel MD Work Phone: Radiation OncologyComment on above:Non-small cell cancer of left lung (HCC) (Primary Dx)Start: 05-18-2024 End: 47-23-4148drwuxvjbwmJHUB LINDYFacility:[facility] Hospitaltart: 05-18-2024 End: 99-50-2552Caeritxsda hospital visit by physicianArrival Time Radiology Work Phone: Radiology Pet CTComment on above:Neoplasm of lung [D49.1]Start: 04-06-2024 End: 15-64-8539Tbf-patient / Non-visitAtrium Health [facility] Phys[facility] GroupAden[facility] Work Phone: Start: 03-01-2024 End: 39-70-8848Vtiicn flowsDemetrio Montague MD Work Phone: noms CI ENTStart: 03-01-2024 End: 38-25-7512Mfulmt Keyur Montague MD Work Phone: [facility] CI ENTStart: 03-01-2024 End: 00-52-3694Mhnuwih encounter procedureCarla Montague MD Work Phone: noms CI ENTComment on above:Right ear impacted cerumen (Primary Dx); Foreign body of left ear, initial encounterStart: 03-01-2024 End: 68-96-9106wsjxzogdovZETDFE H TIMMISNot AvailableStart: 02-26-2024 End: 14-55-2261Ftaxlrb encounter procedureAdithya Kenyon MD Work Phone: [facility] Work Phone: Start: 02-26-2024 End: 98-82-2982pkhlrjzeooTkcovdw M Hoy MD Work Phone: [facility] Work Phone: Start: 02-23-2024 End: 64-71-5828xbezdeahyvXrnidky M Hoy MD Work Phone: [facility] Work Phone: Start: 02-23-2024 End: 55-07-1278Rinkkbw encounter procedureAdithya Kenyon MD Work Phone: [facility] Work Phone: Start: 02-17-2024 End: 38-12-0187Xrvmokhcm encounterScamden Israel MD Work Phone: Radiation OncologyStart: 01-29-2024 End: 85-11-8249qahjjtxqjaPHET RAJANFacility:[facility] Hospitaltart: 01-29-2024 End: 03-78-6782Lwxelyb encounter procedureScamden Israel MD Work Phone: Radiation OncologyComment on above:Non-small cell cancer of left lung (HCC) (Primary Dx)Start: 01-18-2024 End: 68-62-6655hqzeqlyseyOWSR RAJANFacility:[facility] Hospitaltart: 01-18-2024 End: 17-15-7528Njtjtgqywm hospital visit by physicianArrival Time Radiology Work Phone: Radiology Pet CTComment on above:Malignant neoplasm of unspecified part of unspecified bronchus or lung (HCC) [C34.90]Start: 12-24-2023 End: 39-13-3958Esyqaznrv encounterScamden Israel MD Work Phone: Cancer Appts MCComment on above:Appointment ConfirmationStart: 24-27-0495Qik-patient / Non-visitMD Adithya Hoy Work Phone: [facility] Work Phone: Start: 12-21-2023 End: 20-23-6240Ugiylxswrd and management of inpatientMD Adithya Hoy Work Phone: [facility] [place] [facility] Work Phone: Start: 61-24-6211Stxggonatm and management of inpatientMD Adithya Hoy Work Phone: [facility] [place] [facility] Work Phone: Start: 54-51-0268jizlzspfplo encounterMD Adithya Kenyon Work Phone: [facility] Work Phone: Start: 12-03-2023 End: 13-97-6990gbaepqrimvWqrcsfuri [facility] Work Phone: Start: 12-03-2023 End: 59-24-1487Yusjbqp encounter procedureAtrium Health [facility] Work Phone: Start: 13-09-8714Oquodyath encounterTeo Craft MD Work Phone: [facility] and Neck InstituteComment on above:Patient Update Start: 11-18-2023 End: 87-00-6583siyjfjngnwJDWURGL L PRENDESFacility:[facility] Start: 11-17-2023 End: 10-56-9441zggqkhhrtcVYKYWLC M HOYFacility:[facility] Hospitaltart: 11-17-2023 Encounter for other [facility]procedural examinationSaint [facility] Start: 11-17-2023 End: 46-61-1276Pwrjbfebe to [place] [address] Work Phone: Pre AnesthesiaStart: 11-17-2023 End: 79-35-5478Ijsoeyjysf consultationCatherine V[place] [address] Work Phone: Pre AnesthesiaComment on above:Preoperative examination (Primary Dx); 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); Non-small cell cancer of left lung (HCC); Chronic respiratory failure with hypoxia (HCC); COPD, severe (HCC); Supplemental oxygen dependent; Former smokerStart: 11-17-2023 End: 32-16-7889Awxnvfdckbjty examination [place] [address] Work Phone: [facility] Work Phone: Start: 11-16-2023 End: 41-49-9812Vjtcpwlld encounterScamden Israel MD Work Phone: Radiation OncologyComment on above:ResultsStart: 10-27-2023 End: 94-21-6441dxjrqelfgnBPVFJZJ L PRENDESFacility:[facility] Start: 10-27-2023 End: 89-70-6561Xvbvzkp encounter procedureTeo Craft MD Work Phone: OtolaryngologyComment on above:Lymphadenopathy (Primary Dx); Non-small cell cancer of left lung (HCC); 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)Start: 09-29-2023 End: 83-28-9621jjgpjnjsspQvpabmgtlCincinnati VA Medical Center Work Phone: Start: 09-29-2023 End: 97-04-1225Odgwkrp encounter procedureAtrium Health [facility] Work Phone: Start: 76-53-8989Pfbzffxed encounterScamden Israel MD Work Phone: Cancer Appts MCComment on above:Appointment ConfirmationStart: 78-99-2675thbuggknkoZXJWS E STOCK MDFacility:[facility] Hospitaltart: 09-16-2023 End: 77-64-0461Wiqieqwvux hospital visit by Misti Mcintyre MD Work Phone: [facility] EZ78Nkbthfp on above:Malignant neoplasm of unspecified part of unspecified bronchus or lung (HCC) [C34.90]Start: 09-14-2023 End: 48-28-7558jjchhcfkjdCLLYELR M HOYFacility:[facility] HospitalStart: 09-10-2023 End: 02-53-0476popqepovkrCERWTR K STRACKNot AvailableStart: 00-98-1476Brfcmr Kosta Galicia MD Work Phone: RADIO HOSPComment on above:Neoplasm (Primary Dx)Start: 42-76-2007Soaytukjy encounterScamden Israel MD Work Phone: fv INTERVENTIONAL RADIOLOGYComment on above:Cervical lymph node bxBiopsy RequestStart: 09-01-2023 End: 37-88-8362devddzezmjASSG RAJANFacility:[facility] Hospitaltart: 09-01-2023 End: 56-16-8467Ifdndtgmlt hospital visit by physicianArrival Time Radiology Work Phone: Radiology Pet CTComment on above:Malignant neoplasm of unspecified part of unspecified bronchus or lung (HCC) [C34.90]Start: 81-25-5090Xqeydqdpq encounterScamden Israel MD Work Phone: Radiation OncologyComment on above:Patient Update Start: 59-22-5026Ffofbrjmn encounterScamden Israel MD Work Phone: Radiation OncologyComment on above:Patient Update; Future AppointmentStart: 05-14-2023 End: 77-77-9951Euhezrqjfh and management of inpatientAdithya Kenyon [facility]: 05-07-4745Smt-patient / Non-visitFirvalley health [facility]ician [facility] Work Phone: Start: 11-27-2022 End: 95-11-5169Dirjlau encounter procedureScamden Israel MD Work Phone: Radiation OncologyComment on above:Neoplasm of lung (Primary Dx)Start: 17-88-3535Fbfaabics encounterRosa Victoria RN Hematology/OncologyComment on above:AppointmentStart: 09-02-2022 End: 21-76-2704Honmntkeje and management of inpatientDR ADITHYA KENYON .Facility: Start: 06-26-2022 End: 39-82-3826sbkjhmnnypTgoprmb Blank Other [employer] Other Start: 21-72-8718Qiddmd outpatient visit 25 minutes Jose Garcia Infectious DiseaseStart: 06-10-2022 End: 56-94-3956apbxcvufhzDzfqmiq Blank Other [employer] Other Start: 77-72-1436Joztxormm encounterMickaleb Garcia Infectious DiseaseStart: 06-02-2022 End: 48-75-2988Nszfqyr encounter procedureScamden Israel MD Work Phone: Radiation OncologyComment on above:Non-small cell cancer of left lung (HCC) (Primary Dx)Start: 05-23-2022 End: 81-50-4686afhximtcikSP MICHAEL ELTONRomacility:B0Hyjrm: 05-22-2022 End: 68-33-7805nwkgbkpenkYX JOSE ELTONPlain[place] [employer] Other Start: 17-16-2951Itkjiz outpatient new 45 minutes Jose Garcia Infectious DiseaseStart: 03-91-7242Dokedrxzp encounterScamden Israel MD Work Phone: Radiation OncologyComment on above:AppointmentStart: 05-09-2022 End: 15-13-9482Wmlfdoryfv hospital visit by Kelley Waggoner MD Work Phone: AdmittingComment on above:Bronchiolar disease [J98.09] Start: 46-84-2936Wkbniehla for preprocedural laboratory examinationDR DOCTOR MISCTMarietta Osteopathic Clinic HospitalStart: 05-06-2022 End: 46-13-2706ohzbsbxxyqPG DOCTOR MISCFacility:H8Mwxxd: 05-06-2022 End: 95-62-2833Nuqpynjhn for preprocedural laboratory examinationDR DOCTOR MISC Facility:X0Fwdsp: 05-06-2022 End: 69-74-8243Cqoauuztqr hospital visit by physicianArrival Time Radiology Work Phone: Radiology Pet CTComment on above:Lung mass [R91.8] Start: 04-28-2022 End: 74-71-5617wfoeduzxuuSzpemk C Cicenia MD Work Phone: PulmonologyComment on above:Non-small cell cancer of left lung (HCC) (Primary Dx); Lung mass; Centrilobular emphysema (HCC)Start: 04-28-2022 End: 96-64-0595Frcbcmpldscf consultation with patientVitor Kaur MD Work Phone: [facility] MCStart: 04-24-2022 Telephone encounterFlorina Hassan CTPulmonary MedicineComment on above: Appointment (PreOp Bronch)Start: 06-08-8615Kvqtgk OnlyAlicja Chevy TRADE MARK EXAMINER.WEDDING DAY COORDINATOR Work Phone: AdmittingComment on above:Preoperative examination (Primary Dx)AppointmentStart: 90-30-3587Hodbibqcrwflg examination Ayden Chevy TRADE MARK EXAMINER.WEDDING DAY COORDINATOR Work Phone: AdmittingStart: 38-06-6638gctzvywugxUntmrz C Cicenia MD Work Phone: Pulmonary MedicineStart: 63-14-9689Owkwaxoeo encounter Abdi Israel MD Work Phone: Radiation OncologyComment on above:Patient Update; AppointmentStart: 04-08-2022 End: 14-31-1170jxqexmpsyoHJ DOUGLAS HOY .Facility:Y5Qsgtk: 03-14-2022 End: 73-34-2851Qpveesg encounter procedureScamden Israel MD Work Phone: Radiation OncologyComment on above:Non-small cell cancer of left lung (HCC) (Primary Dx)Start: 03-07-2022 End: 16-16-0816Rxzrfrotjp hospital visit by physicianArrival Time Radiology Work Phone: Radiology Pet CTComment on above:Neoplasm of lung [D49.1]Start: 35-01-0666Wegqcngpt encounterScamden Israel MD Work Phone: Radiation OncologyComment on above:OrdersStart: 02-15-2022 End: 28-02-0048loqjrnsswdQE DOUGLAS HOY .Facility:J6Pscus: 02-11-2022 End: 60-32-7870gvxaphmyqcPC DOUGLAS HOY .Facility:Y9Pgndq: 12-11-2021 End: 30-49-4234zibqhiodwpCP DOUGLAS HOY .Facility:Q9Ioser: 95-44-2028gkjhjihztm DR ADITHYA KENYON .Facility:V8Shgcq: 06-06-2021 End: 77-96-8466Amvwkfq encounter procedureScamden Israel MD Work Phone: Radiation OncologyComment on above:Non-small cell cancer of left lung (HCC) (Primary Dx); Neoplasm of lungStart: 05-29-2021 End: 84-74-6828Xvbuuluaxc hospital visit by physicianArrival Time Radiology Work Phone: Radiology Pet CTComment on above:Neoplasm of lung [D49.1]Start: 30-02-8430Aypddbh encounter procedureMAMOUN CHRISTINEUniversity Health Lakewood Medical Centerjannet HospitalStart: 70-69-7559JpywrgprzvECEWCSL P [facility]ALDTONUINNFacility:1532Start: 77-32-9235VrtsvhyitgZksddmj Michael SheliaFacility:9507 Procedures DateProcedureProcedure DetailPerforming ClinicianStart: 92-11-5559Zi thorax w/contrast Manish Israel MD Work Phone: Start: 36-26-2432ZZPUUHRPPK BLTiti Israel MD Work Phone: Start: 33-30-1641Qsine chest X-rayAdithya Kenyon MD Work Phone: Start: 51-53-4726Vh thorax w/contrast Manish Israel MD Work Phone: Start: 45-23-4715Ydkpqnl microbial cultureDnicolasa Kenyon MD Work Phone: Start: 82-46-2074Mizb stain microscopyAdithya Kenyon MD Work Phone: Start: 04-29-1670Vqmggicmmedzg of transfusion reaction MD Adithya Kenyon Work Phone: Start: 17-44-6590Srjorjtvysp resistant Staphylococcus aureus cultureMD Adithya Kenyon Work Phone: Start: 50-74-6524Eviswmnyhle Panel (PCR)MD Adithya Kenyon Work Phone: Start: 43-08-8568Rkiyyzrjoex Panel (PCR)Adithya Kenyon MD Work Phone: Start: 77-30-2218Ooalr chest X-rayMD Adithya Kenyon Work Phone: Start: 82-03-2702SK NECK (POC) HNI USE ONLYTeo Craft MD Work Phone: Start: 89-07-1965Nvq imaging ct attenuation skull base mid-thighAbdi Israel MD Work Phone: Start: 34-70-6837Evbe bld gluc mntr dev cleared fda spec home useCcf ProviderStart: 96-43-1815Nxowzxv incl fluor gdnce dx w/cell washg spxScamden Israel MD Work Phone: Start: 52-00-5434Ed thorax w/o contrast Jeremy Kaur MD Work Phone: Start: 15-59-0353Xqx imaging ct attenuation skull base mid-thighAbdi Israel MD Work Phone: Start: 19-48-6069Rbfo bld gluc mntr dev cleared fda spec home useCcf ProviderStart: 70-74-7219Rktvh depression screening assessment Abdi Israel MD Work Phone: Start: 14-83-8012Cx thorax w/contrast materialScamden Israel MD Work Phone: Plan of Treatment DateCare ActivityDetailAuthorStart: 38-40-5389Grvuuxpj ScreeningDiabetes ScreeningBlanchard Valley Health System Bluffton Hospitaltart: 06-01-2025 End: 50-13-1552Lshvjnz encounter rmawqxavu21/19/2026 11:00 AM EST Office Visit Radiation Oncology [address] [place] [address] Abdi Israel MD [address] [place] [address] 1 year follow upRadiation OncologyComment on above:1 year follow upStart: 05-27-2025 End: 22-06-3292OV Chest W contrast IVCT CHEST W IVCON Radiology Routine Expected: 05/27/2025, Expires: 06/26/2025[facility] Work Phone: Comment on above:Expected: 05/27/2025, Expires: 06/26/2025Start: 05-25-2025 End: 16-29-6393Rkwvqna encounter /12/2026 10:45 AM EST Appointment Radiology Pet CT [address] [place] [address] CT Chest Radiology Pet CTComment on above:CT ChestStart: 15-85-0436VXUSJRYL SCREEN DIABETES SCREENBlanchard Valley Health System Bluffton Hospitaltart: 86-75-0308Teilwdlt ScreeningDiabetes ScreeningBlanchard Valley Health [facility] Bluff[facility] Hospitaltart: 02-22-2025 End: 92-45-9841Imvzoic encounter tbhjefcuj98/12/2025 11:10 AM EST Office Visit [facility] [address] [facility] [address] [place] [address] Carla Montague MD [address] [facility] [address] [place] [address] NOM[facility] CI ENTStart: 08-30-2024 End: 05-37-6436Sxwbfey encounter /20/2025 11:10 AM EDT Office Visit [facility] [address] [facility] [address] [place] [address] Carla Montague MD [address] [facility] [address] [place] [address] [facility] CI ENTStart: 08-16-2024 End: 63-27-3283Yasagdu encounter procedureNOMS CI ENTComment on above:Arrived Start: 05-27-2024 End: 22-86-9311EVEOBELXPX BLDCREATININE BLD Lab Routine Expected: 05/27/2024, Expires: 5Cleveland ClinicComment on above:Expected: 05/27/2024, Expires: 08/26/2024Start: 05-23-2024 End: 11-77-1189Vtyqhxm encounter ghawutsju97/10/2025 11:00 AM EST Office Visit Radiation Oncology [address] [place] [address] Abdi Israel MD [address] [place] [address] FollowupRadiation OncologyComment on above:FollowupStart: 05-18-2024 End: 58-45-8221Mtgozsg encounter gbtliyfwg74/05/2025 10:15 AM EST Appointment Radiology Pet CT [address] [place] [address] CT CHEST Radiology Pet CTComment on above:CT CHESTStart: 03-01-2024 End: 33-81-3855Bbbcocz encounter sxprbmsno75/19/2024 11:10 AM EST Office Visit [facility] [address] [facility] [address] [place] [address] Carla Montague MD [address] [facility] [address] [place] [address] ArrivedNOMS CI ENTComment on above:ArrivedStart: 01-29-2024 End: 33-93-1701Omxmrsj encounter bhplggzyv37/18/2024 2:00 PM EDT Office Visit Radiation Oncology [address] [place] [address] Abdi Israel MD [address] [place] [address] F/U after CT ScanRadiation OncologyComment on above:F/U after CT Scan Start: 01-18-2024 End: 74-63-8997Ykiqrgq encounter ahhefuzyw25/07/2024 10:45 AM EDT Appointment Radiology Pet CT [address] [place] [address] CT Chest w/IVRadiology Pet CTComment on above:CT Chest w/IVStart: 77-88-2354WruakqmluSheltering Arms Hospitaltart: 24-95-4045Znbexchks culture of sputumSheltering Arms Hospitaltart: 85-36-1289DkrxsxwiiSheltering Arms Hospitaltart: 99-22-3757Uuprdahreklsvw of prophylactic treatmentSheltering Arms Hospitaltart: 12-21-2023 End: 79-66-0324msrocjagnz92/09/2024 1:25 PM EDT [facility] Otolaryngology [address] [address] Teo Craft MD [address] [place] [address] post op OtolaryngologyComment on above:post opStart: 81-60-6221Kspupwfhpvempw of prophylactic treatmentSheltering Arms Hospitaltart: 12-21-2023 [facility] Hospitaltart: 14-83-7863VfxyckzvrzjmNfxuzpfuwSheltering Arms Hospitaltart: 10-71-3851Otiafmwd admissionSheltering Arms Hospitaltart: 26-95-3617Nyleizclkcw pathogens DNA and RNA panel - Nasopharynx by KRUNAL with non-probe detectionSheltering Arms Hospitaltart: 12-20-2023 [facility] Hospitaltart: 68-70-1820Roofl chest X-rayXR chest 1V portableSheltering Arms Hospitaltart: 68-17-1905QT Chest Single view [facility] Hospitaltart: 12-18-2023 End: 77-01-2458Mmminha encounter qelitksts21/06/2024 3:00 PM EDT Office Visit Radiation Oncology [address] [place] [address] Abdi Israel MD [address] [place] [address] followupRadiation OncologyComment on above:followupStart: 12-15-2023 End: 28-42-8503Ziewxxn encounter adexbdrla43/03/2024 2:15 PM EDT Appointment Radiology Pet CT [address] [place] [address] CT chest Radiology Pet CTComment on above:CT chestStart: 12-15-2023 End: 38-45-2867Tricuvk encounter dahqfdteb20/03/2024 12:45 PM EDT Appointment Radiology Pet CT [address] [place] [address] PET Radiology Pet CTComment on above:PETStart: 32-81-1240Spkvr-19 Vaccine ( season)Covid-19 Vaccine ( season)[facility] Hospitaltart: 12-13-2023 Covid-19 Vaccine ()Covid-19 Vaccine ( season) [facility] Hospitaltart: 65-08-6191Cpbzfbtdo vaccinationInfluenza Vaccine (#1) [facility] Hospitaltart: 11-18-2023 End: 37-11-1217Cmvcbvudi to same day surgery mukzjt9011/18/2023 4:10 PM EDT - 11/18/2023 6:42 PM EDT Surgery Admitting [address] [place] [address] Teo Craft MD [address] [place] [address] BIOPSY OR EXCISION LYMPH NODE(S) OPEN, DEEP CERVICALAdmitting Comment on above:BIOPSY OR EXCISION LYMPH NODE(S) OPEN, DEEP CERVICALStart: 11-18-2023 End: 25-87-9740Gi/exc lymph node open deep cervical nodeBIOPSY OR EXCISION LYMPH NODE(S) OPEN, DEEP CERVICAL Non-small cell cancer of left lung (HCC) Lympha denopathy 11/18/2023 4:10 PM EDTMC MAIN PAVILIONStart: 05-27-7472Dhpaxxtcqu hospital visit by qepzzzifv64/07/2024 4:10 PM EDT Hospital Encounter Admitting [address] [place] [address] Teo Craft MD [address] [place] [address] Non-small cell cancer of left lung (HCC) [C34.92]AdmittingComment on above:Non-small cell cancer of left lung (HCC) [C34.92]Start: 10-27-2023 End: 09-75-1729Lobjgoq encounter msalndfvp19/16/2024 11:00 AM EDT Office Visit Otolaryngology [address] [address] Teo Craft MD [address] [place] [address] excisional biopsy cervical lymph node; needle biopsy was negativeOtolaryngologyComment on above:excisional biopsy cervical lymph node; needle biopsy was negativeStart: 09-16-2023 End: 44-01-0689Wnxwkakvn to same day surgery todazd4409/16/2023 10:00 AM EDT - 09/16/2023 11:00 AM EDT Surgery Angio [address] [place], [place] [address], [address] [facility] [address] [address] BIOPSY OR EXCISION LYMPH NODES(S) NEEDLE SUPERFICIAL AngioComment on above:BIOPSY OR EXCISION LYMPH NODES(S) NEEDLE SUPERFICIALStart: 09-16-2023 End: 63-52-9811Re/exc lymph node needle superficialBIOPSY OR EXCISION LYMPH NODES(S) NEEDLE SUPERFICIAL Malignant neoplasm of unspecified part of unspe cified bronchus or lung (HCC) 09/16/2023 10:00 AM EDC ANGIO AW5Ifurh: 63-22-3241Qesmcleexm hospital visit by aolpatgdp58/05/2024 10:00 AM EDT Hospital Encounter Angio [address] [place] [address] [place] [address] [facility] [address] [place] [address] Malignant neoplasm of unspecified part of unspecified bronchus or lung (HCC) [C34.90]AngioComment on above:Malignant neoplasm of unspecified part of unspecified bronchus or lung (HCC) [C34.90]Start: 09-09-2023 End: 45-24-7958DUK panel - Blood by Automated countCOMPLETE BLOOD COUNT Lab Routine Neoplasm Expected: 09/09/2023, Expires: 12/09/2023[facility] Work Phone: Comment on above:Expected: 09/09/2023, Expires: 12/09/2023Start: 09-01-2023 End: 22-84-2234Fmizjks encounter dpisrwizp28/21/2024 12:45 PM EDT Appointment Radiology Pet CT [address] [place] [address] [place] [address] PET Radiology Pet CTComment on above:PETStart: 76-38-6709ShaphljlqSheltering Arms Hospitaltart: 74-44-7033Tzgjtuwatvvjoy of prophylactic treatmentSheltering Arms Hospitaltart: 05-14-2023 End: 93-86-5635MflehvwswSheltering Arms Hospitaltart: 37-30-7546Ysniqjal admissionSheltering Arms Hospitaltart: 59-51-0683Foqayuhbe culture of sputumSheltering Arms Hospitaltart: 10-45-9989IS ChestSheltering Arms Hospitaltart: 05-13-2023 End: 09-52-8950GDHLONGMXY BLDCREATININE BLD Lab Routine Neoplasm of lung Expected: 05/13/2023 (Approximate), Expires: 07/13/2023[facility] Work Phone: Comment on above:Expected: 05/13/2023 (Approximate), Expires: 07/13/2023Start: 05-13-2023 End: 08-63-7999BO CHEST W IVCONCT CHEST W IVCON Radiology Routine Neoplasm of lung Expected: 05/13/2023 (Approximate), Expires: 12/27/2023[facility] Work Phone: Comment on above:Expected: 05/13/2023 (Approximate), Expires: 12/27/2023Start: 77-62-8287Cycvpgyhom Health ScreeningBehavioral Health ScreeningBlanchard Valley Health System Bluff[facility] Hospitaltart: 94-23-6218Jmmmevmpqt AssessmentDepression AssessmentBlanchard Valley Health System [facility] Hospitaltart: 33-52-0175Odkpa-19 Vaccine ( season) Covid-19 Vaccine ()[facility] Hospitaltart: 05-73-1374Oquuousxs vaccinationBlanchard Valley Health System [facility]uff[facility] Hospitaltart: 55-94-5191Jpemj depression screening assessmentDEPRESSION SCREENINGBlanchard Valley [facility] Hospitaltart: 06-06-2022 End: 28-79-1401EMJAGBAGKQ BLDCREATININE BLD Lab Routine Non-small cell cancer of left lung (HCC) Expected: 06/06/2022, Expires: 06/06/2022[facility] Work Phone: Comment on above:Expected: 06/06/2022, Expires: 06/06/2022Start: 06-06-2022 End: 25-00-8372Fv thorax w/contrast materialCT CHEST W IVCON Radiology Routine Non-small cell cancer of left lung (HCC) Neoplasm of lung Expected: 06/06/2022, Expires: 07/06/2022[facility] Work Phone: Comment on above:Expected: 06/06/2022, Expires: 07/06/2022Start: 04-24-2022 End: 05-68-2908GMTM-CoV-2 (COVID-19) RNA [Presence] in Respiratory specimen by KRUNAL with probe detectionINTERMEDIATE RAPID COVID Microbiology Routine Preoperative examination Expected: 04/24/2022, Expires: 06/24/2022[facility] Work Phone: Comment on above:Expected: 04/24/2022, Expires: 06/24/2022Start: 04-22-2022 End: 87-99-1591Hpnot metabolic 2000 panel - Serum or PlasmaBASIC METABOLIC PNL Lab STAT Lung mass Expected: 04/22/2022, Expires: 06/22/2022[facility] Work Phone: Comment on above:Expected: 04/22/2022, Expires: 06/22/2022Start: 04-22-2022 End: 60-79-8676PQV W Auto Differential panel - BloodCBC + DIFF Lab STAT Lung mass Expected: 04/22/2022, Expires: 06/22/2022[facility] Work Phone: Comment on above:Expected: 04/22/2022, Expires: 06/22/2022Start: 38-90-8529LADGDUSQCH ASSESSMENTDEPRESSION ASSESSMENTBlanchard Valley Health [facility] Hospitaltart: 51-65-4140Whvsffyup vaccinationINFLUENZA (#1)[facility]: 92-09-9390RBN Vaccine (1 - 1-dose 60+ series)RSV Vaccine (1 - 1-dose 60+ series)[facility]: 15-37-0117PJJ Vaccine (1 - Risk 60-74 years 1-dose series)RSV Vaccine (1 - Risk 60-74 years 1-dose series)[facility]tart: 12-08-2103QGBLCCYTSJ ASSESSMENTDEPRESSION ASSESSMENTBlanchard Valley [facility] Hospitaltart: 50-15-0242GKZHFARW SCREENDIABETES SCREENBlanchard Valley Health System Bluff[facility] Hospitaltart: 08-26-2011 SHINGRIX VACCINE (1 of 2)SHINGRIX VACCINE (1 of 2)[facility]tart: 95-79-9477XZUGYAOHE (FIT-DNA)COLOGUARD (FIT-DNA)[facility]tart: 73-19-8432VancmyynxgeJNVISVJVEQUTgaqkorvq ClinicStart: 08-86-4440KETSRUROLX CANCER SCREENINGCOLORECTAL CANCER SCREENINGBlanchard [facility] Hospitaltart: 62-66-4293LO COLONOGRAPHYCT COLONOGRAPHYBlanchard Valley Health System [facility] Hospitaltart: 12-18-8247KHZQD OCCULT BLOOD FECAL OCCULT BLOODBlanchard Valley Health System [facility] Hospitaltart: 09-83-1969Obojd panelLipid Screening [facility]tart: 73-36-8402QYNAZ SCREENLIPID SCREENBlanchard Valley Health System [facility] Hospitaltart: 67-77-3799Bbrwwswqv for malignant neoplasm of colonBlanchard Valley Health System [facility]uff[facility] Hospitaltart: 99-92-3526EEJZYVVPOANRJLTSOXQJJUWGQPWmtobokuq ClinicStart: 21-69-3788Tkxbribmwcp MAMMOGRAMBlanchard Valley Health System [facility] Hospitaltart: 45-21-6743Tbwiarezm for malignant neoplasm of breastMammogram ScreeningBlanchard Valley Health System [facility] Hospitaltart: 42-97-3293FFF TESTINGHPV TESTING [facility]tart: 37-11-1645Sgmhgdrkn for malignant neoplasm of cervixHPV TestingBlanchard Valley Health System [facility] Hospitaltart: 57-38-8897Pccdmmmuit acid therapyALPHA-1 ANTITRYPSIN DEFICIENCY SCREENINGBlanchard Valley [facility] System [facility] Hospitaltart: 98-88-7781HBP TESTINGPAP TESTINGBlanchard [facility] Hospitaltart: 54-12-7102Drasxvbug for malignant neoplasm of cervixBlanchard Valley Health System Bluff[facility] Hospitaltart: 68-18-2804Oypaqajpbcqh Vaccine: 50+ (1 of 2 - PCV) Pneumococcal Vaccine: 50+ (1 of 2 - PCV)[facility]: 88-06-0557Ddckg microalbumin profileBlanchard Valley Health System Bluff[facility] Hospitaltart: 67-27-0600ZNIURY PCP TEAM CHRONIC DISEASE VISITANNUAL PCP TEAM CHRONIC DISEASE VISITBlanchard Valley Health System [facility] Hospitaltart: 20-46-8071Jmmrvxa ScreeningAnxiety ScreeningBlanchard Valley [facility] Hospitaltart: 08-26-1979 Depression ScreeningDepression ScreeningBlanchard Valley Health [facility] Hospitaltart: 08-26-1979 HEPATITIS C SCREENINGHEPATITIS C SCREENINGBlanchard Valley [facility] Hospitaltart: 08-26-1979 Hepatitis C screeningHepatitis C ScreeningBlanchard Valley [facility] Hospitaltart: 52-54-5296GDW SCREENINGHIV SCREENINGBlanchard Valley [facility] Hospitaltart: 88-22-1491IGI screeningHIV ScreeningBlanchard Valley Health System [facility] Hospitaltart: 05-32-8337WEWPDZZFKGMHFSSSCMHODfcgmxhxj Clinic Start: 62-84-4571PLCLOQPSTLOT (1 - PCV)PNEUMOCOCCAL (1 - PCV)[facility] Start: 87-55-3132Oguermlcpkbn vaccinationPneumococcal Vaccine (1 of 2 - PCV) [facility]: 71-13-2371DVCHD-19 VACCINE (1)COVID-19 VACCINE (1) [facility]tart: 95-21-6762GNXSM-19 VACCINE (#1)COVID-19 VACCINE (#1) [facility] Hospitalbumin/Globulin ratioMount St. Mary HospitalAnion gap measurementMount St. Mary HospitalBasophils [#/volume] in Blood by Automated countMount St. Mary HospitalBasophils/100 leukocytes in Blood by Automated countMount St. Mary HospitalBx/exc lymph node open superficialBIOPSY/REMOVAL, LYMPH NODE(S) Procedures ALEKS Non-small cell cancer of left lung (HCC) 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) Ordered: 09/21/2023 [facility] Work Phone: Comment on above:Ordered: 09/21/2023 End: 85-45-7812GN Chest W contrast IVCT CHEST W IVCON Radiology Routine Malignant neoplasm of unspecified part of unspecified bronchus or lung (HCC) 1 Occurrences starting 11/27/2023 until 12/26/2024leveland ClinicComment on above:1 Occurrences starting 11/27/2023 until 12/26/2024 End: 82-99-8477Pi thorax w/o contrast materialCT CHEST WO IVCON Radiology Routine Lung mass 1 Occurrences starting 04/22/2022 until 05/22/2023[facility] Work Phone: Comment on above:1 Occurrences starting 04/22/2022 until 05/22/2023[facility]TOLOGY NON-GYNMercy [facility] Work Phone: Comment on above:Release Upon Ordering for 1 Occurrences starting 05/09/2022, 1 completed End: 59-28-1753UWO COMPLETEECG COMPLETE ECG STAT Lung mass 1 Occurrences starting 04/22/2022 until 04/22/2023[facility] Work Phone: Comment on above:1 Occurrences starting 04/22/2022 until 04/22/2023Eosinophils/100 leukocytes in Blood by Automated [facility] Medical CenterErythrocyte distribution width [Ratio] by Automated count [facility]. Mary HospitalErythrocytes [#/volume] in [facility] DublinGlobulin [Mass/volume] in SerumMount St. Mary HospitalHematocrit [Volume Fraction] of [facility] Hemoglobin [Mass/volume] in [facility] DublinLeukocytes [#/volume] corrected for nucleated erythrocytes in Blood by Automated coun [facility]. Mary HospitalLeukocytes [#/volume] in [facility] - DublinLymphocytes [#/volume] in Blood by Automated count [facility] HospitalLymphocytes/100 leukocytes in Blood by Automated [facility] CenterMCH [Entitic mass] by Automated countMount St. Mary HospitalMCHC [Mass/volume] by Automated count [facility] HospitalMCV [Entitic volume] by Automated count [facility] HospitalMonocytes [#/volume] in Blood by Automated [facility] CenterMonocytes/100 leukocytes in Blood by Automated [facility] CenterNeutrophils [#/volume] in Blood by Automated [facility] CenterNeutrophils/100 leukocytes in Blood by Automated [facility] CenterNucleated erythrocytes [Presence] in Blood by Automated [facility] CenterPatient [facility] Work Phone: [facility] referralSt. [facility] Work Phone: End: 97-54-0674Qyi imaging ct attenuation skull base mid-thighNM PET/CT SKULL- THIGH INITIAL Radiology Routine Neoplasm of lung 1 Occurrences starting 02/21/[address] [place] [address] Work Phone: Comment on above:1 Occurrences starting 02/21/2022 until 03/22/2023 End: 43-76-6079GIG+CT Guidance for localization of tumor of Skull base to mid-thigh-- W 18F-FDG IVNM PET/CT SKULL-THIGH SUBSEQUENT Radiology Routine Malignant neoplasm of unspecified part of unspecified bronchus or lung (HCC) 1 Occurrences starting 08/17/2023 until 09/15/2024[facility] Work Phone: Comment on above:1 Occurrences starting 08/17/2023 until 09/15/2024 End: 41-51-1759PNS+CT Guidance for localization of tumor of Skull base to mid-thigh-- W 18F-FDG IVNM PET/CT SKULL-THIGH SUBSEQUENT Radiology Routine Malignant neoplasm of unspecified part of unspecified bronchus or lung (HCC) 1 Occurrences starting 11/27/2023 until 12/26/2024[facility] Work Phone: Comment on above:1 Occurrences starting 11/27/2023 until 12/26/2024Platelet mean volume [Entitic volume] in Blood by Automated countMount St. Mary HospitalPlatelets [#/volume] in BloodSheltering Arms HospitalARS-CoV-2 (COVID-19) RNA [Presence] in Respiratory specimen by KRUNAL with probe detectionSELF CHECK COVID Microbiology Routine Lung mass Ordered: 04/22/2022[facility] Work Phone: Comment on above:Ordered: 04/22/2022SURGICAL PATHOLOGY [facility] Work Phone: Comment on above:Release Upon Ordering for 1 Occurrences starting 05/09/2022, 1 completed End: 43-59-6535ZYMUDCIL PATHOLOGYMercy Health – The [facility] Hospital Work Phone: Comment on above:ONCE for 1 Occurrences starting 09/16/2023 until 09/16/2023, 1 completedXR Chest 2 [facility] Immunizations Immunization DateImmunizationNotesCare KbwnqvmhMzcigldg62-01-0467Dbuukeyvy, injectable, Madin Bushra Canine Kidney, preservative free, quadrivalentCarla Montague MD Work Phone: [facility] SystemOojueawman78-21-5195ofnkqujpz virus vaccine, unspecified formulationWenatchee Valley Medical Center 1 Work Phone: [facility] CenterVpopwc95-86-2665anpxdmttg, injectable, quadrivalent, contains preservativeCarla Montague MD Work Phone: [facility] SystemOguxaxvlja44-49-8709kvmtkahat, injectable, quadrivalent, preservative freeVitor Kaur MD Work Phone: [facility] CenterLjxwzv19-41-3887fewrylnoh virus vaccine, unspecified formulationScamden Israel MD Work Phone: [facility] CenterIfdvtc69-22-4512metybwyvu, seasonal, injectableCarla Montague MD Work Phone: [facility] SystemXruitepsxf38-71-0639xxnsafkpm, injectable, quadrivalent, preservative freeVitor Kaur MD Work Phone: [facility] CenterZrqnhh04-22-0065ihbpjdjst virus vaccine, unspecified formulationVitor Kaur MD Work Phone: [facility] CenterAemnnj42-51-0715Bsgczlcut, injectable, Madin Royal Canine Kidney, preservative free, quadrivalentVitor Kaur MD Work Phone: [facility] CenterZzioow83-37-5568zecptxojr, high dose seasonal, preservative-freeCarla Montague MD Work Phone: [facility] SystemEdkoztzuct82-56-7759Ulayeykbe, injectable, Madin Bushra Canine Kidney, preservative free, quadrivalentGloriasekeyshawn Kaur MD Work Phone: [facility] CenterIjxclt12-39-4566tyfmailpu, injectable, quadrivalent, contains preservativeScamden Israel MD Work Phone: [facility] Payers DatePayer CategoryPayerPolicy [id number] MEDICAID [employer]ESOURCE MEDICAID [id number] 2018-Present [phone] [address] [facility] [place] [address] [id number] [id number] Health InsuranceCARESOURCE MEDICAID Member Subscriber Plan / Payer (Effective 2017-Present) Name: Cinthia Guerrero Liborio Relation to Subscriber: Self Name: Cinthia Guerrero Liborio Payer ID: Not on file Group ID: [id number] Type: Not on file Address: [address] [place] [id number] [id number] 2.840.1.976584.3.57[id number] 2.840.1.142283.3.57[id number] 2.840.1.611666.3.57[id number] 2.16.840.1.771385.3.57[id number] 2.16.840.1.774511.3.57[id number] 2.16.840.1.572482.3.57[id number] 2.16.840.1.471178.3.57[id number] 2.16.840.1.800080.3.57[id number] 2.16.840.1.312260.3.57[id number] 2.16.840.1.454603.3.579.2.[id number] 2..840.1.334008.3.57[id number] 2.16.840.1.034745.3.579.2.165610-13-7025Bvnt-ifo93627938446-63-4123Ahnnxdl [id number] 2.1[id number] 2.840.1.1[id number] 2.840.1.719308.3.579.2.531 [id number] 2.840.1.827155.3.579.2.531 Social History DateTypeDetailFacilityStart: 03-02-2018 End: 08-42-4157Irsrhfy smoking status NHISEx-smokerBl[facility] Hospitaltart: 04-13-1976 End: 15-19-6683Qqudodd of tobacco useCurrent smokerBlanchard Valley Health System [facility]uff[facility] Hospitaltart: 03-02-2018 End: 03-72-7351Wdbwvnqnqi smoked current (pack per day) - Reported1.5CRegency Hospital Cleveland Westtart: 03-02-2018 End: 18-82-8042Enghglv use and exposureSmokeless tobacco non-userBlanchard Valley Health System [facility]uff[facility] Hospitaltart: 06-06-2021 End: 38-86-5429Tvznhbf intakeCurrent drinker of alcohol (finding)[facility]: 13-91-7783Fuo Assigned At BirthNot on fileBlanchard Valley Health System [facility] Hospitaltart: 04-29-2021 End: 85-94-3701Vgmampbv to SARS-CoV-2 (event)Not sureBlanchard Valley Health System Bluff[facility] Hospitaltart: 04-13-1976 End: 82-27-7718Uxhuwti of tobacco useCigarette SmokerOhiohealth Grant Medical Center Work Phone: Start: 03-14-2022 End: 42-73-6028Rgq Assigned At [facility] HospitalAdult Depression Screening Uciyudirqu5Avzmbnbvj ClinicStart: 54-23-2299Nnc Assigned At [facility]: 02-23-2024 End: 33-80-2094AskFbtire (finding)[facility]: 11-30-2023 End: 92-15-3528Rjzpnsnti beverage intakeLifetime non-drinker (finding)[facility] HealthcareStart: 96-27-7423Qcpvbke Commentcaffeine intake: more than 4 cups per dayNOMS Healthcare Goals DatePatient GoalDesired Activity/State Functional Status NmrnYvhilhcuroUhybrsEkismcge95-30-9277Ndgkdicreq statusPatient at [facility] Work Phone: Mental Status VtqbOhiyvhxislKdllecAtadekcy62-43-9070Xtzzdxdyl functionCognitive Status [facility] Work Phone: Clinical Notes 05-14-2011 to 08-16-2024 Note Date & NcmpOzrpFkhsigkr09-58-7555 History of Present illness Narrative* Carla Montague MD - 08/16/2024 11:10 AM EDT Images from the original note were not included. Subjective Patient ID: Omaira Guerrero is a 63 y.o. female who presents for Ear Problem (6 month check ears ) Family History Problem Relation Name Age of Onset Heart disease Mother Heart disease Father Mental illness Father Alzheimer's disease Father COPD Father Emphysema Father Heart disease Sibling Coronary artery disease Other Active Ambulatory Problems Diagnosis Date Noted Chronic obstructive pulmonary disease ([facility]) 10/13/[address] scan of lung 10/13/2022 Centrilobular emphysema ([facility]) 03/02/2018 Chronic respiratory failure with hypoxia ([facility]) 03/02/2018 Lung cancer ([facility]) 10/21/2022 Lung field abnormal 10/21/2022 Lung nodule, solitary 03/02/2018 Non-small cell cancer of left lung ([facility]) 04/07/2018 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 Foreign body of left ear 08/17/2023 Metastasis to cervical lymph node ([facility]) 12/07/2023 Resolved Ambulatory Problems Diagnosis Date Noted Supplemental oxygen dependent 11/17/2023 Past Medical History: Diagnosis Date COPD (chronic obstructive pulmonary disease) ([facility]) COVID-19 10/2020 Past Surgical History: Procedure [...] MG tablet Take 10 mg by mouth Daily Dextromethorphan-guaiFENesin ([employer] Mucus DM Extended Release) 30-600 MG tablet sustained-release 12 hour Take 1 tablet by mouth every 12 (twelve) hours if needed ferrous sulfate 325 (65 Fe) MG tablet Take 1 tablet by mouth in the morning and 1 tablet before bedtime. fluticasone (Flonase) 50 MCG/ACT nasal spray Administer 2 sprays into each nostril Daily ipratropium-albuterol (Duo-Neb) 0.5-2.5 mg/3 mL nebulizer solution [...] Supplies (CareTouch CPAP & BIPAP Hose) misc sodium chloride 3 % nebulizer solution Take by nebulization if needed theophylline ER (Mi-24) 200 MG 24 hr capsule Take 1 capsule (200 mg) by mouth 1 (one) time each day at the same time 30 capsule 5 [DISCONTINUED] azithromycin (Zithromax) 250 MG tablet TAKE 1 TABLET BY MOUTH IN THE MORNING 30 tablet 5 [DISCONTINUED] Roflumilast (Daliresp) 500 MCG tablet Take 500 mcg by mouth Daily 30 tablet 5 [DISCONTINUED] tiotropium-olodaterol (Stiolto Respimat) 2.5-2.5 MCG/ACT aerosol solution inhaler INHALE 2 PUFFS ONCE A DAY AT THE SAME TIME 4 g 5 No current facility-administered medications on file prior to visit. Objective Last Recorded Vitals Vitals: 08/16/24 1106 BP: 114/74 Pulse: 102 ENT Physical Exam Ear Ear Canals: bilateral ear canals impacted cerumen observed; Patient ID: Omaira Guerrero is a 63 y.o. female. Procedures Cerumen was removed from the ears using binocular microscopy under micro with foreceps Assessment/Plan documented in this encounterSaint Luke's Health SystemZulrnfkmje18-55-2555 NoteHNO ID: [id number] Author: ABDI ISRAEL MD Service: ? Author Type: Physician Type: Progress Notes Filed: 06/28/2024 07:12 Note Text: Radiation Oncology - Follow Up Note PATIENT NAME: CINTHIA Guerrero PATIENT DIAGNOSIS/PATIENT IDENTIFICATION: Ms. Guerrero is a 63-year-old woman with severe COPD, who is diagnosed with Stage IA3, [id number], non-small cell lung cancer arising from a [...] to clinic today for routine follow-up approximately six years after the completion of her radiation treatments and four months since her last visit on 01/29/2024. In the interim, she underwent surveillance imaging with CT of the chest last week on 05/18/2024 noting evolving posttreatment change with no radiographic evidence of disease. She reports being diagnosed with pneumonia in March and treated successfully with steroids antibiotics. Today she reports continued COPD/emphysema requiring supplemental oxygen gadvdh-eet-qnwwh at 2 L/min via nasal cannula. She denies any cough or chest pain or hemoptysis or difficulty swallowing or skin irritation in the treatment area. She endorses stable energy with fair appetite and hydration and stable weight. She follows with Dr. Rasmussen. ALLERGIES ALLERGIES No Known Allergies MEDICATIONS: Current Outpatient Medications: sodium chloride (NEBUSAL) 3 % nebulizer solution ferrous sulfate 325 mg (65 mg iron) tablet dextromethorphan-guaiFENesin (MUCINEX DM) 30-600 mg per tablet budesonide (PULMICORT) 1 mg/2 mL nebulizer solution montelukast (SINGULAIR) 10 mg tablet ipratropium/albuterol sulfate (DUONEB INHALATION) albuterol (PROVENTIL) 2.5 mg/0.5 mL nebulizar solution PEDIATRIC ASTHMA Cetirizine 10 mg cap Theophylline SR (MI-24) 400 mg 24 hr capsule doxycycline monohydrate (MONODOX) 100 mg capsule predniSONE 10 mg tablet pack iv contrast (will be provided with radiology test) PHYSICAL EXAM: GENERAL: middle-aged woman sitting in chair in no acute distress. VITALS: BP 147/76 Pulse 108 Temp 97.8 Resp 18 Wt 93 lb 14.7 oz (42.6kg) SpO2 95% KPS: 80 HEENT: NC/AT, anicteric sclera HEART: S1S2 LUNGS: non-labored breathing ABDOMEN: soft MUSCULOSKELETAL: no peripheral edema, moves all extremities. NEURO: no focal deficit; AANDO X3. RADIOLOGIC DATA: CT Chest (05/18/2024) IMPRESSION: 1. Decrease in size of the dense consolidative opacity in the posterior suprahilar region of the left upper lobe, likely representing evolving posttreatment change. 2. No CT evidence of metastatic disease in the chest. 3. Unchanged severe emphysema. ASSESSMENT AND PLAN: Ms. Guerrero is a 63-year-old woman with severe COPD, who is diagnosed with Stage IA3, [id number], non-small cell lung cancer arising from a [...] in 5 fractions). Ms. Guerrero is stable clinically approximately 6 years out from the completion of her SBRT treatment to the chest with stable pulmonary function. She is without radiographic evidence of disease with recent CT of the chest from 05/18/2024 showing evolving posttreatment changes with no signs of recurrent disease. She will continue follow-up with Dr. Rasmussen for optimization of her pulmonary function and I will plan to see her back in [address] of the chest. The patient is aware to contact the clinic in the interim should any questions or concerns arise. Thank you for allowing us to participate in the care of this patient. Signed by: Abdi Israel MD I spent a total of 20 minutes on the date of the service which included preparing to see the patient, aqwt-kv-yuvt patient care, and counseling and educating the patient/family/caregiver. This document has been created with the use of voice recognition technology. It may contain inaccuracies, misspellings, inaccurate syntax or inappropriate word context that are a result of the inadequacies/shortcomings of said technology/software.[facility]02-14-2025 History of Present illness Narrative* Abdi Israel MD - 05/27/2024 2:26 PM EST Radiation Oncology - Follow Up Note PATIENT NAME: CINTHIA Guerrero PATIENT Signed by: Abdi Israel MD I spent a total of 20 minutes on the date of the service which included preparing to see the patient, xqkm-ae-lzsu patient care, and counseling and educating the patient/family/caregiver. This document has been created with the use of voice recognition technology. It may contain inaccuracies, misspellings, inaccurate syntax or inappropriate word context that are a result of the inadequacies/shortcomings of said technology/software. documented in this encounterOhiohealth Grant Medical Center02-05-2025 History of Present illness Narrative* Eduardo De Jesus RT(R) - 05/18/2024 10:15 AM EST Radiology Service Progress Note PATIENT NAME: CINTHIA Guerrero DATE OF SERVICE: May 18, 2024 TIME: 10:07 AM PATIENT IDENTITY VERIFICATION COMPLETED USING TWO (2) IDENTIFIERS: Name and Date of confirmedby patient verbally. FALL SCREENING: Has the patient had 2 falls in the last year or 1 fall with injury or currently using an Ambulatory Assistive Device (Walker, Cane, Wheelchair, Crutches, etc.)? No PATIENT GENDER DATA: Assigned female at . status: : No status:NO. PATIENT RELEVANT IMPLANT DATA REVIEWED: Not Applicable PATIENT PRESENTS WITH AN IMPLANTABLE OR ATTACHED DESIGNER/WRITER: No RADIOLOGY DEPARTMENT: CT; Exam(s) Completed: Chest PERIPHERAL IV DATA: Site assessment: Clean,Dry and Intact, Site disposition Discontinued SIGNED BY: RT Laure(R) May 18, 2024 10:07 AM * Stacia Irving RN - 05/18/2024 10:15 AM EST Radiology Service Progress Note DATE OF SERVICE: May 18, 2024 TIME: 10:24 AM PATIENT WEIGHT: 93LBS PATIENT IDENTITY VERIFICATION COMPLETED USING TWO (2) STANDARD IDENTIFIERS: Name and Date of confirmed by patient verbally. FALL SCREENING: Has the patient had 2 falls in the last year or 1 fall with injury or currently using an Ambulatory Assistive Device (Walker, Cane, Wheelchair, Crutches, etc.)? No PATIENT GENDER DATA: Assigned female at . status: : No status:NO. ALLERGIES: Reviewed and unchanged CONTRAST ALLERGY: No EXAM: CT -CONTRAST INDUCED NEPHROPATHY RISK FACTORS: Patient age > 60 years CREATININE: Creatinine Date Value Ref Range Status 05/18/2024 0.42 (L) 0.58 - 0.96 mg/dL Final 11/17/2023 0.37 (L) 0.58 - 0.96 mg/dL Final 04/24/2022 0.48 (L) 0.58 - 0.96 mg/dL Final Estimated Glomerular Filtration Rate Date Value Ref Range Status 05/18/2024 111 >=60 mL/min/1.73m Final Comment: Estimated Glomerular Filtration [...] RESULTS: POC done: Yes, See Lab Tab May 18, 2024 TREATMENT: No Hydration needed. IV SITE: Ambulatory: A peripheral IV was started in the Left antecubital site with a Angio cath: 20gauge. IV SITE APPEARANCE: Clean,Dry and Intact SIGNATURE: Stacia Irving RN PATIENT NAME: CINTHIA Guerrero DATE: May 18, 2024 TIME: 10:24 AM documented in this encounterOhiohealth Grant Medical Center02-05-2025 Miscellaneous Notes* Addendum Note - Stacia Irving RN - 05/18/2024 10:15 AM ESTEncounter addended by: Stacia Irving RN on: 05/18/2024 10:25 AM Actions taken: Clinical Note Signed documented in this encounterOhiohealth Grant Medical Center02-05-2025 Note* Addendum Note - Stacia Irving RN - 05/18/2024 10:15 AM JACQUESncounter addended by: Stacia Irving RN on: 05/18/2024 10:25 AM Actions taken: Clinical Note Signed [facility]02-05-2025 NoteHNO ID: [id number] Author: STACIA IRVING RN Service: ? Author Type: Registered Nurse Type: Progress Notes Filed: 05/18/2024 10:25 Note Text: Radiology Service Progress Note DATE OF SERVICE: May 18, 2024 TIME: 10:24 AM PATIENT WEIGHT: 93LBS PATIENT IDENTITY VERIFICATION COMPLETED USING TWO (2) STANDARD IDENTIFIERS: Name and Date of confirmed by patient verbally. FALL SCREENING: Has the patient had 2 falls in the last year or 1 fall with injury or currently using an Ambulatory Assistive Device (Walker, Cane, Wheelchair, Crutches, etc.)? No PATIENT GENDER DATA: Assigned female at . status: : No status: NO. ALLERGIES: Reviewed and unchanged CONTRAST ALLERGY: No EXAM: CT -CONTRAST INDUCED NEPHROPATHY RISK FACTORS: Patient age > 60 years CREATININE: Creatinine Date Value Ref Range Status 05/18/2024 0.42 (L) 0.58 - 0.96 mg/dL Final 11/17/2023 0.37 (L) 0.58 - 0.96 mg/dL Final 04/24/2022 0.48 (L) 0.58 - 0.96 mg/dL Final Estimated Glomerular Filtration Rate Date Value Ref Range Status 05/18/2024 111 >=60 mL/min/1.73m? Final Comment: Estimated Glomerular Filtration [...] RESULTS: POC done: Yes, See Lab Tab May 18, 2024 TREATMENT: No Hydration needed. IV SITE: Ambulatory: A peripheral IV was started in the Left antecubital site with a Angio cath: 20 gauge. IV SITE APPEARANCE: Clean,Dry and Intact SIGNATURE: Stacia Irving RN PATIENT NAME: CINTHIA Guerrero DATE: May 18, 2024 TIME: 10:24 [facility]02-05-2025 NoteHNO ID: [id number] Author: EDUARDO DE JESUS RT(R) Service: ? Author Type: Technologist Type: Progress Notes Filed: 05/18/2024 10:08 Note Text: Radiology Service Progress Note PATIENT NAME: CINTHIA Guerrero DATE OF SERVICE: May 18, 2024 TIME: 10:07 AM PATIENT IDENTITY VERIFICATION COMPLETED USING TWO (2) IDENTIFIERS: Name and Date of confirmed by patient verbally. FALL SCREENING: Has the patient had 2 falls in the last year or 1 fall with injury or currently using an Ambulatory Assistive Device (Walker, Cane, Wheelchair, Crutches, etc.)? No PATIENT GENDER DATA: Assigned female at . status: : No status: NO. PATIENT RELEVANT IMPLANT DATA REVIEWED: Not Applicable PATIENT PRESENTS WITH AN IMPLANTABLE OR ATTACHED DESIGNER/WRITER: No RADIOLOGY DEPARTMENT: CT; Exam(s) Completed: Chest PERIPHERAL IV DATA: Site assessment: Clean,Dry and Intact, Site disposition Discontinued SIGNED BY: RT Laure(R) May 18, 2024 10:07 [facility]11-19-2024 History of Present illness Narrative* Carla Montague MD - 03/01/2024 11:10 AM EST Images from the original note were not [...] CT scan of lung 10/13/2022 Centrilobular emphysema [facility] 03/02/2018 Chronic respiratory failure with hypoxia ([facility]) 03/02/2018 Lung cancer ([facility]) 10/21/2022 Lung field abnormal 10/21/2022 Lung nodule, solitary 03/02/2018 Non-small cell cancer of left lung ([facility]) 04/07/2018 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 Foreign body of left ear 08/17/2023 Resolved Ambulatory Problems Diagnosis Date Noted Supplemental oxygen dependent 11/17/2023 Past Medical History: Diagnosis Date COPD (chronic obstructive pulmonary disease) ([facility]) COVID-19 10/2020 Past Surgical History: Procedure [...] using binocular microscopy under micro with suction, curetteand/or foreceps Foreign body removed from the left ear canal under micro with a forecep Assessment/Plan Diagnoses and all orders for this visit: Right ear impacted cerumen Foreign body of left ear, initial encounter Kulwinder ears debrided documented in this encounterSaint Luke's Health SystemXlrgufylmu49-25-4755 Telephone encounter Note* Telephone Encounter - Kendal Pacheco - 02/17/2024 10:17 AM EST Records faxed to Dr. Rasmussen. Requested images be pushed to [facility]. [facility]11-06-2024 Miscellaneous Notes* Telephone Encounter - Kendal Pacheco - 02/17/2024 10:17 AM EST Records faxed to Dr. Rasmussen. Requested images be pushed to [facility]. * Telephone Encounter - Julisa Pressley LPN - 02/17/2024 8:57 AM EST Emily: Please send reports and images to [...] any cultures/stains). Thanks! Abdi documented in this encounterOhiohealth Grant Medical Center11-06-2024 Telephone encounter Note * Telephone Encounter - Julisa Pressley LPN - 02/17/2024 8:57 AM EST Emily: Please send reports and images to [...] from 04/2022 (including any cultures/stains). Thanks! Abdi [facility]10-18-2024 NoteHNO ID: [id number] Author: ABDI ISRAEL MD Service: ? Author Type: Physician Type: Progress Notes Filed: 02/16/2024 08:32 Note Text: Radiation Oncology - Follow Up Note PATIENT NAME: CINTHIA Guerrero PATIENT DIAGNOSIS/PATIENT IDENTIFICATION: Ms. Guerrero is a 63-year-old woman with severe COPD, who is diagnosed with Stage IA3, fI6uE0N7, non-small cell lung cancer arising from a [...] continues on supplemental oxygen via nasal cannula tgfrhq-gfs-loflj at 2 L/min and continues on Pulmicort [...] likely relate to pro (more content not included)...[facility]10-18-2024 History of Present illness Narrative* Abdi Israel MD - 01/29/2024 11:41 PM EDT Radiation Oncology - Follow Up Note PATIENT NAME: CINTHIA Guerrero PATIENT Signed by: Abdi Israel MD I spent a total of 20 minutes on the date of the service which included preparing to see the patient, ljnj-je-znrf patient care, and counseling and educating the patient/family/caregiver. This document has been created with the use of voice recognition technology. It may contain inaccuracies, misspellings, inaccurate syntax or inappropriate word context that are a result of the inadequacies/shortcomings of said technology/software. documented in this encounterOhiohealth Grant Medical Center10-07-2024 History of Present illness Narrative* Nadia Fernandez RN - 01/18/2024 10:45 AM EDT Radiology Service Progress Note DATE OF [...] DATE: January 18, 2024 TIME: 10:50 AM * Sahara Briceno RT(R) - 01/18/2024 10:45 AM EDT Radiology Service Progress Note PATIENT NAME: CINTHIA [...] PATIENT PRESENTS WITH AN IMPLANTABLE OR ATTACHED DESIGNER/WRITER: No RADIOLOGY DEPARTMENT: CT; Exam(s) Completed: Chest PERIPHERAL IV DATA: Site assessment: Clean,Dry and Intact, Site disposition Discontinued SIGNED BY: RT Fox(R) January 18, 2024 11:28 AM documented in this encounterOhiohealth Grant Medical Center10-07-2024 NoteHNO ID: [id number] Author: NADIA FERNANDEZ RN Service: ? Author [...] Guerrero DATE: January 18, 2024 TIME: 10:50 [facility]10-07-2024 NoteHNO ID: [id number] Author: SAHARA BRICENO, RT(R) Service: ? Author Type: Technologist Type: [...] PATIENT PRESENTS WITH AN IMPLANTABLE OR ATTACHED DESIGNER/WRITER: No RADIOLOGY DEPARTMENT: CT; Exam(s) Completed: Chest PERIPHERAL IV DATA: Site assessment: Clean,Dry and Intact, Site disposition Discontinued SIGNED BY: RT Fox(R) January 18, 2024 11:28 [facility]09-16-2024 Telephone encounter Note* Telephone Encounter - Adelia Raygoza HUC - 12/28/2023 10:54 AM EDT I talked to the Patient and have her scheduled for her CT Scan on Thursday01/18/24 at 1045 am, and her Follow up appointment with Dr. Israel on Thursday01/29/24 at 2 pm. HARJINDER Mcgowan [facility]09-16-2024 Miscellaneous Notes* Telephone Encounter - Adelia Raygoza HUC - 12/28/2023 10:54 AM EDT I talked to the Patient and have her scheduled for her CT Scan on Thursday01/18/24 at 1045 am, and her Follow up appointment with Dr. Israel on Thursday01/29/24 at 2 pm. HARJINDER Mcgowan * Telephone Encounter - Rodney Rinaldi - 12/24/2023 1:58 PM EDT Cinthia Guerrero --Omaira was dc'd from [facility]-She hasn't called in to reschedule her appt's. [...] call back to schedule. documented in this encounterOhiohealth Grant Medical Center09-12-2024 Discharge summary Author Cassandra Andersen [facility] December 24, 2023 12:14pmNote Date/TimeSept2023 8:38[place] [address] Discharge Summary Signed with Addenda Patient: Cinthia Guerrero MR#: [id number] : 1960 Acct:[id number] Age/Sex: 63 / F Adm Date: 4 Loc: Room: [address] [place] [address]: Cassandra Andersen MD Copies to: [...] above and others that are not listed. Patientis doing much better. She is ready physically and psychologically to be discharged home. At this time, I do not have any clear orstrong clinical justification to extend inpatient hospitalization. Patient however will require close and frequent monitoring as well as additional work- up, investigationand therapeutic intervention that could take place from this point on post discharge. That is to prevent relapse, decompensation, rehospitalization and other medical implications. I instructed patient to ask her primary care doctor to obtain [facility] record entirely to address abnormalities seen [...] primary care provider to obtain [facility] records entirely to follow up on all of the abnormal physical, laboratory, and imaging findings thatI have not addressed. Please return back to the emergency room or seek medical attention if your symptoms worsen or return. I would recommend that you continue to get low-dose radiation CAT scan of the chest every year to be arranged by primary care doctor or lung specialist to screen for lung cancer Discharging you from [facility] does not mean that your medical care [...] for 4 days then 1 tablet daily for4 days then resume your daily prednisone 5 [...] Rx Instructions .Route Rx Instructions: As directed [facility] (DME) Bilevel Positive Airway Pressure (BiPAP) [...] signed by Cassandra Andersen MD> 12/24/23 0[address] [facility] Work Phone: 1(595) 645-169809-12-2024 Telephone encounter Note* Telephone Encounter - Rodney Rinaldi - 12/24/2023 1:58 PM EDT Cinthia Guerrero --Omaira was dc'd from [facility]-She hasn't called in to reschedule her appt's. [...] a message to call back to schedule. [facility]09-11-2024 Progress note Author Denver Rasmussen [facility] December 23, 2023 6:59pmNote Date/TimeSept2023 8:19[place] [address] Pulmonology Progress Note Signed Patient: Cinthia Guerrero MR#: [id number] : 1960 Acct:[id number] Age/Sex: 63 / F Adm Date: 4 Loc: Room: [address] [place] [address] Type: ADM IN Attending Dr: Cassandra Andersen [...] severe emphysema with marked pulmonary cachexia and decreasedlevel of function. Patient continues dyspneic on exertion and we will follow-up on culture results.Continue aggressive pulmonary clearance measures. Patient continues on Solu-Medrol 40 mg IV 1212 hrs., theophylline, and bronchodilators. Documented By: Denver Rasmussen MD 4 [id number] Signed By: <Electronically signed by MD Denver Rasmussen> 12/23/[address] [facility] Work Phone: 1(778) 204-282809-11-2024 Progress note Author Cassandra Andersen [facility] December 23, 2023 11:01amNote Date/TimeSeptember 2023 11:02[place] [address] Hospitalist Progress Note Signed Patient: Cinthia Guerrero MR#: [id number] : 1960 Acct:[id number] Age/Sex: 63 / F Adm Date: 4 Loc: 3T Room: [address] [place] [address] Type: ADM IN Attending Dr: Cassandra Andersen [...] 1,000 Ml IV 12/23/23 15:16 70 mls/hr .[id number] Administration Melatonin 5 mg 12/20/23 22:58 [...] chest to be arranged by PCP or button attaching machine operator to screen for lung cancer. She [...] signed by Cassandra Andersen MD> 12/23/[address] [facility] Work Phone: 1(856) 844-514109-10-2024 Progress note Author Denver Rasmussen [facility] December 22, 2023 7:37pmNote Date/TimeSeptember 2023 8:11am[place] [address] Pulmonology Progress Note Signed Patient: Cinthia Guerrero MR#: [id number] : 1960 Acct:[id number] Age/Sex: 63 / F Adm Date: 4 Loc: 3T Room: [address] [place] [address] Type: ADM IN Attending Dr: Cassandra Andersen [...] severe emphysema with marked pulmonary cachexia and decreasedlevel of function. Patient remains on oral Augmentin [...] <Electronically signed by MD Denver Rasmussen> 12/22/231936 [facility] Work Phone: 1(544) 660-932009-10-2024 Progress note Author Cassandra Andersen [facility] December 22, 2023 8:05amNote Date/TimeSept2023 8:05[place] [address] Hospitalist Progress Note Signed Patient: Cinthia Guerrero MR#: [id number] : 1960 Acct:[id number] Age/Sex: 63 / F Adm Date: 4 Loc: Room: [address] [place] [address] Type: ADM IN Attending Dr: Cassandra Andersen [...] chest to be arranged by PCP or button attaching machine operator to screen for lung cancer. She had 1 in April 2023 which did not show any nodules. DVT prophylax Lovenox Anxiety Xanax as needed Other medical issues not listed above To be addressed in the outpatient setting Documented By: Cassandra Andersen MD 12/22/23801 Signed By: <Electronically signed by Cassandra Andersen MD> 12/22/23804 [facility] Work Phone: 1(938) 731-474609-09-2024 Consult note Author Denver Rasmussen [facility] December 21, 2023 6:35pmNote Date/TimeSeptember 2023 6:17pm[place] [address] Pulmonology Consult Note Signed Patient: Cinthia Guerrero MR#: [id number] : 1960 Acct:[id number] Age/Sex: 63 / F Adm Date: 4 Loc: Room: [address] [place] [address] Type: ADM IN Attending Dr: Cassandra Andersen [...] had converted to Dr. Cross at the [facility]. Patient normally follows with Dr. Kenyon and had pulmonary function test done most recently on September 17, 2023 with evidence of very severe obstruction with an FEV1 to forced vital capacity ratio which was 33% with an FEV1 which was only 17%predicted with evidence of a bronchodilator response. Total lung capacity was 125% predicted with aresidual volume which is 236% predicted which indicates severe air trapping and hyperinflation. Thesingle breath diffusion capacity was decreasedat 21% of [...] increased dyspnea. Patient was seen at the [facility] and admitted for presumably acute exacerbation of [...] negative unless noted below or in HPI [facility] Medical History (Updated 12/21/23 @ 09:21 by [...] mL nebulization soln 3 ml inhalation Q6H 05/13/23[History Confirmed 12/20/23] montelukast 10 mg tablet 10 [...] inh inhalation Q6HR PRN shortness of breath orwheezing 09/29/23 [History Confirmed 12/20/23] cetirizine 10 mg [...] severe emphysema with marked pulmonary cachexia and decreasedlevel of function. Patient gives a recent history of acute exacerbation of COPD and is on steroids,antibiotics, and bronchodilators. In the short-term, we are simply trying to decrease inflammation and improve her level of function with note of marked tachycardia. Patient is already on optimal ther apy and in the short-term may need to [...] culture. Documented By: Denver Rasmussen MD 4 1579 Signed By: <Electronically signed by MD Denver Rasmussen> 12/21/[address] [facility] Work Phone: 1(363) 449-364309-09-2024 Progress note Author Cassandra Andersen [facility] December 21, 2023 9:22amNote Date/TimeSept2023 9:22[place] [address] Hospitalist Progress Note Signed Patient: Cintiha Guerrero MR#: [id number] : 1960 Acct:[id number] Age/Sex: 63 / F Adm Date: 4 Loc: 3T Room: [address] [place] [address] Type: ADM INOo Attending Dr: Cassandra Andersen MD Copies to: ~ Date of Service: 12/21/2023 Subjective Subjective Narrative: This is 61-year-old female with chronic respiratory failure secondary to COPD, on supplemental oxygen at home, pulmonary cachexia, [place] [facility]. At that[facility] COVID test was done which was negative. [...] chest to be arranged by PCP or button attaching machine operator to screen for lung cancer. She had 1 in April 2023 which did not show any nodules. Documented By: Cassandra Andersen MD 12/21/23918 Signed By: <Electronically signed by Cassandra Andersen MD> 12/21/23921 [facility] Work Phone: 1(800) 493-186109-09-2024 History and physical note Author Mg Vaughn [facility] December 20, 2023 10:58pmNote Date/TimeSeptember 2023 10:58pm[place] [address] Hospitalist H&P Signed Patient: Cinthia Guerrero MR#: [id number] : 1960 Acct:[id number] Age/Sex: 63 / F Adm Date: 4 Loc: 3T Room: [address] [place] [address] Type: ADM INOo Attending Dr: Mg Vaughn MD Copies to: MD Adithya Koroma MD~ HPI DATE OF EXAMINATION: 12/20/23 CHIEF COMPLAINT: COPD exacerbation HISTORY OF PRESENT ILLNESS: This is 61-year-old female with chronic respiratory failure secondary to COPD, on supplemental oxygen at home, pulmonary cachexia, [facility] [facility]. At thattime COVID test was done which was negative. [...] negative unless noted below or in HPI [facility] Medical History (Updated 12/20/23 @ 21:57 by [...] mL nebulization soln 3 ml inhalation Q6H 05/13/23[History Confirmed 12/20/23] montelukast 10 mg tablet 10 [...] inh inhalation Q6HR PRN shortness of breath orwheezing 09/29/23 [History Confirmed 12/20/23] cetirizine 10 mg [...] % (Auto) 9.8 % (.) 12/20/23 20:08 Bath % (Auto) 5.9 % (.) 12/20/23 20:08 Eos % (Auto) 0.1 % (.) 12/20/23 20:08 Baso % (Auto) 0.3 % (.) 12/20/23 20:08 Nucleat RBC Rel Count 0.1 /100 WBC (0-0.5) 12/20/23 20:08 Neut # (Auto) 7.0 x10E3/uL (1.8-7.7) 12/20/23 20:08 Lymph # (Auto) 0.8 x10E3/uL (1.00-4.8) L 12/20/23 20:08 Bath # (Auto) 0.5 x10E3/uL (0.0-0.8) 12/20/23 20:08 [...] -Will consult pulmonology. Dr. Gannon is her button attaching machine operator. -Budesonide via nebulization every 12 hours, and DuoNebs menkac-ulb-xrtoo. -O2 supplementation to maintain O2 sats greater [...] <Electronically signed by Mg Vaughn MD> 12/20/232257 [facility] Work Phone: 1(554) 179-301708-26-2024 NoteHNO ID: [id number] Author: TEO CRAFT MD Service: ? Author Type: Physician Type: Progress Notes Filed: 12/07/2023 00:32 Note Text: [facility] Consult This consult was requested by [...] HISTORY 1973: APPENDECTOMY No date: BRONCHOSCOPY Comment: 2018, 2023 1984: SNGL 2012: COLONOSCOPY Current Outpatient Medications [...] mobility normal Neck Ultrasound: 12/07/2023 Ultrasound Machine: FreakOut Transducer: Linear 11 MHz Regions examined: cervical lymph nodes Sagittal and transverse views were obtained. Color and power Doppler were applied when indicated. Left neck: For surgical planning I evaluated the left cervical lymph nodes with the ultrasound. Identified 2 separate lymph nodes we (more content not included)...[facility]08-26-2024 History of Present illness Narrative* Teo Craft MD - 12/07/2023 12:20 AM EDT [facility] Consult This consult was requested [...] mobility normal Neck Ultrasound: 12/07/2023 Ultrasound Machine: FreakOut Transducer: Linear 11 MHz Regions examined: cervical [...] Moderate Teo Craft MD documented in this encounterOhio[facility] Evaluation note* Diagnosis Onset Date Resolution Status Admit Date Chronic respiratory failure with hypoxia acuteDecember 03, 2023 9:21amCOPD (chronic obstructive pulmonary disease)acute December 03, 2023 9:21amSleep apnea, obstructiveacuteAugust 2023 9:21am Acute hypoxic respiratory failureacuteSept2023 9:37amCachexiaacute December 21, 2023 9:37amChronic hypercapnic respiratory failureacuteSe2023 9:37amChronic respiratory failure with hypoxiaacuteSe2023 9:37amCOPD (chronic obstructive pulmonary disease)acuteSe2023 9:37amCOPD exacerbationacuteDecember 21, 2023 9:37amPulmonary cachexia due to COPDacuteDecember 21, 2023 9:37amSleep apnea, obstructiveacuteSe2023 9:37amCavitary lung diseaseacuteFebruary 23, 2024 2:29pmCOPD (chronic obstructive pulmonary disease)acuteFebruary 23, 2024 2:29pm [facility] Work Phone: 1(206) 820-374608-19-2024 Telephone encounter Note* Telephone Encounter - Rodney Rinaldi - 11/30/2023 8:22 AM EDT Yes she has caresource unfornatuly. [facility]08-19-20[facility] Miscellaneous Notes* Telephone Encounter - [...] as we discussed today. Julisa Pressley RN * Telephone Encounter - Abdi [...] call ALEKS. Thank you documented in this encounterOhio[facility]08-19-2024 Telephone encounter Note * Telephone Encounter - Rodney Rinaldi - 11/30/2023 8:10 AM EDT Patient is called and scheduled for all appointments [facility]08-16-2024 Telephone encounter Note* Telephone Encounter - Abdi Israel MD - 11/27/2023 4:20 PM EDT Signed and added a CT chest as well. Thanks! Abdi [facility]08-16-2024 Telephone encounter Note* Telephone Encounter - Julisa Pressley LPN - 11/27/2023 2:55 PM EDT Rodney: Please schedule O[facility] for a PET scan then follow up with Dr. Israel. Dr. Israel: Please sign pended PET order as we discussed today. Julisa Pressley RN [facility]08-08-2024 Telephone encounter Note* Telephone Encounter - Ananya Acuna - 11/19/2023 1:49 PM EDT Person Calling:O[facility]ira Reason for Call: requesting a work excuse for her daughter Kendal spicer 11/17 & 11/18. Pt Phone #: [phone] Pharmacy Name and # : Pt last seen: Visit date not found Ananya HEARD [facility]08-08-2024 Miscellaneous Notes* Telephone Encounter - Ananya Acuna - 11/19/2023 1:49 PM EDT Person Calling:Omaira Reason for Call: requesting a work excuse for her daughter Kendal spicer 11/17 & 11/18. Pt Phone #: [phone] Pharmacy Name and # : Pt last seen: Visit date not found Ananya HEARD documented in this encounterOhiohealth [facility] Center08-07-2024 NoteHNO ID: [id number] Author: DORON FLORENTINO MD Service: ? Author [...] Successful intubation technique: video laryngoscopy Devices used: SonarMed Endotracheal tube insertion site: oral Blade size: [...] November 18, 2023 TIME: 3:55 PM CSN: [id number] Health [facility]08-06-2024 Instructions* Patient Instructions* Brie Kaur PA-C - 11/17/2023 3:21 PM EDT PATIENT PREOPERATIVE INSTRUCTIONS Teo Craft MD has scheduled you for your procedure at this surgery center: [facility] [place] Scheduling Office: [phone] --[address] [place] [address]. Please read below carefully for your personalized instructions. Arrival Time for Surgery: - To obtain your arrival time for surgery, call your physician's office the day before your surgery. - If your surgery is scheduled for Thursday, call the Thursday before. Your surgeon s brass wind instrument maker will tell you what time to call the office. - If you have not reached the departmental brass wind instrument maker by 5 P.M., call [phone] after 5 P.M. the day before your [...] Procedures: - YOU MUST HAVE A RESPONSIBLE SOLAR DESIGN ENGINEER TAKE YOU HOME. A GAS TURBINE MECHANIC OR APPLIED TECHNOLOGIST CANNOT BE MADE A RESPONSIBLE SOLAR DESIGN ENGINEER. - We recommend that a responsible person [...] Advance Directive, please fax a copy to [phone] or email to for it to be [...] your chart that day. documented in this encounterOhio[facility]08-06-2024 History and physical note * [...] cell cancer of left lung (HCC) Assessment: 2018, treated with SBRT. COPD, severe (HCC) Assessment: Compliant on Singulair, theophylline, Pulmicort BID and DuoNeb 4x per day. On continuous supplemental oxygen, 2L via NC. Follows with outside pulm at [facility], Dr. Valery DAVIS in October per pt. Diminished breath sounds bilaterally throughout, no wheezing. SpO2 95% on 2L O2. 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 Ptreports she called button attaching machine operator's office because she felt like her [...] large neck Non-male patient STOP-Bang Score: 1 [id number] Score: Age: <65 Sex: female CHF history: No Hypertension history: No Stroke/TIA/thromboembolism history: No Vascular disease history: No Diabetes history: No [id number] Score: 1 ANESTHESIA FINDINGS: Intubation History: No [...] Initiated: Orders placed by surgeon/surgical service in [facility]. Orders Placed This Encounter Complete Blood [...] 11/18/23 (per pt, surgery currently 12/16/23 in [facility]) at . REVIEW OF SYSTEMS: General: [...] requiring medication, no history of angina, CHF, AR, cardiac surgery or stents. Denies rest pain, [...] or any previous visit (from the past 50009 hour(s)). Instructions Given to Patient: Instructions located in the after visit summary. Patient given verbal and written preop instructions and voices comprehension and compliance. SIGNATURE: Brie Kaur PA-C PATIENT NAME: CINTHIA Guerrero DATE: 11/17/2023 TIME: 3:00 PM PAGER/CONTACT #: [facility]08-[facility] History and physical note* Brie Kaur PA-C - 11/17/2023 2:40 PM EDT Images from the original note were not included. [facility] HISTORY [...] via NC. Follows with outside pulm at [facility], Dr. Valery DAVIS in October per pt. Diminished breath sounds bilaterally throughout, no wheezing. SpO2 95% on 2L O2. 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 Ptreports she called button attaching machine operator's office because she felt like her [...] large neck Non-male patient STOP-Bang Score: 1 [id number] Score: Age: <65 Sex: female CHF history: No Hypertension history: No Stroke/TIA/thromboembolism history: No Vascular disease history: No Diabetes history: No [id number] Score: 1 ANESTHESIA FINDINGS: Intubation History: No [...] Initiated: Orders placed by surgeon/surgical service in [facility]. Orders Placed This Encounter Complete Blood [...] 11/18/23 (per pt, surgery currently 12/16/23 in [facility]) at . REVIEW OF SYSTEMS: General: [...] requiring medication, no history of angina, CHF, AR, cardiac surgery or stents. Denies rest pain, [...] or any previous visit (from the past 98012 hour(s)). Instructions Given to Patient: Instructions located in the after visit summary. Patient given verbal and written preop instructions and voices comprehension and compliance. SIGNATURE: Brie Kaur PA-C PATIENT NAME: CINTHIA Guerrero DATE: 11/17/2023 TIME: 3:00 PM PAGER/CONTACT #: documented in this encounterOhiohealth [facility] Center08-05-2024 Telephone encounter Note * Telephone Encounter - Abdi Israel MD - 11/16/2023 5:41 PM EDT Spoke with Ms. Guerrero ... Will plan for a CT chest after she is recovered from her procedure and path is final. Thanks! Abdi [facility]08-05-2024 Telephone encounter Note* Telephone Encounter [...] her again. She would appreciate a call [facility]. Thank you [facility]07-16-20[facility] Nurse Note* Rodney Barry MA - 10/27/2023 11:27 AM EDT Tobacco Use: 1.5 packs/day, for 35 years. Quit 04/13/2012. Types: Cigarettes Was smoking cessation packet given? N/A - Patient is a non-smoker or quit >1 year ago. Was a referral initiated?N/A Patient is a non-smoker [facility]07-16-2024 Nurse Note* Rodney Barry MA - 10/27/2023 11:27 AM EDT Tobacco Use: 1.5 packs/day, for 35 years. Quit 04/13/2012. Types: Cigarettes Was smoking cessation packet given? N/A - Patient is a non-smoker or quit >1 year ago. Was a referral initiated?N/A Patient is a non-smoker documented in this encounterOhio[facility]06-18-2024 Telephone encounter Note * Telephone Encounter - Rodney Rinaldi - 09/29/2023 8:10 AM EDT Patient is scheduled and they have been calling her with appointment. [facility]06-18-[facility] Miscellaneous Notes* Telephone Encounter - [...] consult can be done. Thank you! Silvia Jha, LUCIE * Telephone Encounter - Silvia Jha RN [...] MD Stock, Khushboo Linda MD, Cc: Julisa Pressley LPN; Silvia Jha RN; Rodney Rinaldi Ma Dr. Mcintyre - I appreciate the update and the context for the pathology results. Rashid/Ang/Tiff - please refer Ms. Guerrero to Dr. Craft for consideration of excisional biopsy. Thanks! Abdi Dailey please place orders, thank you! documented in this encounterOhiohealth [facility] Center06-14-2024 Telephone encounter Note * Telephone Encounter - Rodney Rinaldi - 09/25/2023 7:21 AM EDT Email sent to cancer answer line for scheduling thanks [facility]06-13-2024 Telephone encounter Note* Telephone Encounter - Silvia Jha RN - 09/24/2023 3:32 PM EDT Tiff- Dr Israel signed ENT order for Dr Craft. Please schedule and let him know when this consult can be done. Thank you! Silvia Jha RN [facility]06-12-2024 Telephone encounter Note* Telephone Encounter - Silvia Jha RN - 09/23/2023 8:[address] Israel- please sign pended ENT order so Rodney can contact Dr Craft for consult. Silvia Jha RN [facility]06-10-2024 Telephone encounter Note* Telephone Encounter - Silvia Jha RN - 09/21/2023 9:05 AM EDT Order pended- please review before signing. Silvia Jha RN [facility]06-10-20[facility] Telephone encounter Note* Telephone Encounter - Rodney Rinaldi - 09/21/2023 7:16 AM EDT Images from the original note were not included. Abdi Israel MD Stock, Sarah E, MD, MD Cc: Julisa Pressley LPN; Silvia Jha RN; Rodney Rinaldi Dr. - I appreciate the update and the context for the pathology results. Rashid/Ang/Tiff - please refer Ms. Guerrero to Dr. Craft for consideration of excisional biopsy. Thanks! Abdi Dailey please place orders, thank you! [facility]06-05-20[facility] Surgery Surgical operation note* Brief Op Note - Khushboo Mcintyre MD, MD - 09/16/2023 11:06 AM EDTSummary: Left cervical lymph node biopsy BRIEF OPERATIVE / PROCEDURE NOTE LOG ID: [id number] SURGERY/PROCEDURE DATE: 09/16/2023 INCISION/PROCEDURE START TIME: 10:42 AM INCISION CLOSE/PROCEDURE END TIME: 11:02 AM SURGEON(S)/PROCEDURALIST(S) AND PULP MAKING PLANT OPERATOR(S): Surgeon(s) and Role: * Khushboo Mcintyre MD, - Primary No Additional Staff SURGERY/PROCEDURE(S): Ultrasound [...] DATE: September 16, 2023 TIME: 11:06 AM [facility] Work Phone: 1(469) 772-312706-05-2024 Surgical operation note* Brief Op Note - Khushboo Mcintyre MD, - 09/16/2023 11:06 AM EDTSummary: Left cervical lymph node biopsy BRIEF OPERATIVE / PROCEDURE NOTE LOG ID: [id number] SURGERY/PROCEDURE DATE: 09/16/2023 INCISION/PROCEDURE START TIME: 10:42 AM INCISION CLOSE/PROCEDURE END TIME: 11:02 AM SURGEON(S)/PROCEDURALIST(S) AND PULP MAKING PLANT OPERATOR(S): Surgeon(s) and Role: * Khushboo Mcintyre MD, [...] 2023 TIME: 11:06 AM documented in this encounterOhiohealth [facility] Center06-05-2024 Instructions* Patient Education - Rashid [...] Signed By: Rashid Howell RN In Department: [facility] [id number] [facility]06-05-2024 Miscellaneous Notes* Patient Education - Rashdi Howell RN - 09/16/2023 10:24 AM EDT [...] Signed By: Rashid Howell RN In Department: [facility] [id number] documented in this encounterOhiohealth [facility] Center06-03-2024 Telephone encounter Note * Telephone Encounter - Abdi Israel MD - 09/14/2023 10:56 AM EDT Thanks! Abdi [facility]06-03-2024 Miscellaneous Notes* Telephone Encounter - [...] neck seen on PET [facility] at either [facility] or [facility]. Thanks! Abdi documented in this encounterOhiohealth [facility] Center06-03-2024 Telephone encounter Note * Telephone Encounter - Rodney Rinaldi - 09/14/2023 10:31 AM EDT Patient is scheduled 09/15 for biopsy [facility]06-03-2024 Nurse Note* Yakelin Onofre LPN - 09/14/2023 10:29 AM EDT Pre- e instructions: Address: [address] Contacted patient and confirmed appt. for biopsy scheduled on 09/16/23, at [facility]. Diet: Procedure to be done with local anesthetic, you may eat, drink and take medications as prescribed the day of this procedure. Medications: IF ok with your Prescribing Provider: RADIOLOGY RECOMMENDS THESE MEDICATION RESTRICTIONS : None Labs: Lab work needs to be drawn by 09/15/23 at any [facility]. Arrival: Please bring your Photo ID and Insurance Card. A general consent may need to be signed. Arrival at 8:30am to desk QB-1 ([facility]) and check in for your procedure. Senior Mainframe Developer/Transportation: Senior Mainframe Developer not necessary Written instructions provided to patient via Echo itt If you have any questions please call [phone] [facility]06-03-20[facility] Nurse Note* Yakelin Onofre LPN - 09/14/2023 10:29 AM EDT Pre- e instructions: Address: [address] Contacted patient and confirmed appt. for biopsy scheduled on 09/16/23, at [facility]. Diet: Procedure to be done with local anesthetic, you may eat, drink and take medications as prescribed the day of this procedure. Medications: IF ok with your Prescribing Provider: RADIOLOGY RECOMMENDS THESE MEDICATION RESTRICTIONS : None Labs: Lab work needs to be drawn by 09/15/23 at any [facility]. Arrival: Please bring your Photo ID and Insurance Card. A general consent may need to be signed. Arrival at 8:30am to desk QB-1 ([facility]) and check in for your procedure. Senior Mainframe Developer/Transportation: Senior Mainframe Developer not necessary Written instructions provided to patient via Echo itt If you have any questions please call [phone] documented in this encounterOhiohealth [facility] Center06-03-2024 Telephone encounter Note * Telephone Encounter - Neha Leyva - 09/14/2023 10:17 AM EDT Spoke to pt and scheduled biopsy for 09/16/23. [facility]06-03-[facility] Miscellaneous Notes* Telephone Encounter - [...] this procedure: intermediate-high risk. Reference from [facility] [employer]: https://[facility].policytech.com/dotNet/documents/?[email or web address] STAFF SIGNATURE: Osito Galicia MD DATE: September [...] 10:44am REQUESTING STAFF: Abdi Israel MD PHONE/PAGER: [phone] SPECIFICS OF THE REQUEST:Cervical lymph node bx SPECIAL REQUESTS: TISSUE SAMPLE, LABWORK: N/A IS THIS REQUEST PART OF A RESEARCH PROTOCOL: No MEDICAL DIAGNOSIS: Malignant neoplasm of unspecified part of unspecified bronchus or lung (HCC) [C34.90] TYPE AND DATE OF THE EXAM THAT IS THE BASIS OF THE REQUEST: PET 09/01/2023 IMAGING: [facility] Note to all persons requesting biopsies: All biopsy requests will be scheduled as quickly as possible, based on the clinical urgency, availability of appointment times, the need to hold anti-thrombolytic therapy (aspirin, blood thinners) and the patient s schedule, including the need for an available patrol driver. If a percutaneous biopsy or drainage is not felt to be safe or an alternative method for establishing a diagnosis is possible, this will be discussed directly with the requesting physician. documented in this encounterOhiohealth [facility] Center06-03-2024 Telephone encounter Note * Telephone Encounter - Rodney Rinaldi - 09/14/2023 9:55 AM EDT Hey Girl, just checking on this one thanks [facility]05-29-[facility] Telephone encounter Note* Telephone Encounter [...] for this procedure: intermediate-high risk. Reference from [facility] University Manager: [email or web address] STAFF SIGNATURE: Osito Glaicia MD DATE: September 09, 2023 TIME: 9:31 AM [facility] Work Phone: [phone] 284-472905-28-2024 Telephone encounter Note* Telephone Encounter - Yakelin [...] DATE: September 08, 2023 TIME: 11:34 AM [facility]05-28-2024 Telephone encounter Note* Telephone Encounter - Chloe Nicole - 09/08/2023 10:43 AM EDTSummary: Cervical lymph node bx RADIOLOGY CALL CENTER INTAKE DATE: 09/08/2023 TIME: 10:44am REQUESTING STAFF: Abdi Israel MD PHONE/PAGER: [phone] SPECIFICS OF THE REQUEST:Cervical lymph node bx SPECIAL REQUESTS: TISSUE SAMPLE, LABWORK: N/A IS THIS REQUEST PART OF A RESEARCH PROTOCOL: No MEDICAL DIAGNOSIS: Malignant neoplasm of unspecified part of unspecified bronchus or lung (HCC) [C34.90] TYPE AND DATE OF THE EXAM THAT IS THE BASIS OF THE REQUEST: PET 09/01/2023 IMAGING: [facility] Note to all persons requesting biopsies: All biopsy requests will be scheduled as quickly as possible, based on the clinical urgency, availability of appointment times, the need to hold anti-thrombolytic therapy (aspirin, blood thinners) and the patient s schedule, including the need for an available patrol driver. If a percutaneous biopsy or drainage is not felt to be safe or an alternative method for establishing a diagnosis is possible, this will be discussed directly with the requesting physician. [facility]05-28-[facility] Telephone encounter Note* Telephone Encounter - Abdi Israel MD - 09/08/2023 10:37 AM EDT Signed - thanks! Abdi [facility]05-28-2024 Telephone encounter Note* Telephone Encounter - Abdi Israel MD - 09/08/2023 9:51 AM EDT Yes please - Abdi [facility]05-28-2024 Telephone encounter Note* Telephone Encounter - Rodney Rinaldi - 09/08/2023 7:23 AM EDT Images from the original note were not included. Abdi Israel MD Graves, Ariana, LPN Cc: Silvia Jha RN; Rodney Rinaldi Please set Ms. Guerrero up for an US guided biopsy of one of the lymph nodes in the neck seen on PET CT at either [facility] or [facility]. Thanks! Abdi [facility]05-21-2024 Consult note* Stacia Irving RN [...] 2023 TIME: 12:54 PM documented in this encounterOhiohealth Grant Medical Center05-21-2024 History of Present illness Narrative* Sahara Briceno [...] 1248 PATIENT DISCHARGED TO: Ambulatory patient, left [place] department area. A Diagnostic radioactive procedure has taken place, with no further precautions necessary other than routine body substance precautions. More information regarding radiation safety can be found usingthis link: [email or web address] 20Diagnostic%20Nuclear%20Medicine%20Procedures.pdf SIGNATURE: FARNAZ Braxton) PATIENT NAME: CINTHIA Guerrero DATE: September 01, 2023 TIME: 1:23 PM PAGER/CONTACT #: documented in this encounterOhiohealth Grant Medical Center05-21-2024 NoteHNO ID: [id number] Author: SAHARA BRICENO RT(R) Service: ? Author [...] 1248 PATIENT DISCHARGED TO: Ambulatory patient, left [place] department area. A Diagnostic radioactive procedure has taken place, with no further precautions necessary other than routine body substance precautions. More information regarding radiation safety can be found using this link: [email or web address]-% 20Diagnostic%20Nuclear%20Medicine%20Procedures.pdf SIGNATURE: RT Fox(R) PATIENT NAME: CINTHIA Guerrero DATE: September 01, 2023 TIME: 1:23 PM PAGER/CONTACT #:[facility]05-21-2024 Progress note * Stacia Irving RN - [...] DATE: September 01, 2023 TIME: 12:54 PM [facility]05-15-[facility]24 Progress note Author Denver Rasmussen [facility] December 24, 2023 2:47pmNote Date/TimeSept2023 2:43pm[place] [address] Pulmonology Progress Note Signed Patient: Cinthia Guerrero MR#: [id number] : 1960 Acct:[id number] Age/Sex: 63 / F Adm Date: 4 Loc: Room: [address] [place] [address] Type: ADM IN Attending Dr: Cassandra Andersen [...] 96 Nasal Cannula 2 12/24/23 04:00 12/24/23 12:12/24/23 12:12/24/23 12:12/24/23 12:12/24/23 12:12/24/23 12:00 FiO2 28 12/20/23 21:00 Const General: [...] severe emphysema with marked pulmonary cachexia and decreasedlevel of function. Patient has responded well to hypertonic saline with MRSA culture negative and sputum showing only a yeast which is more likely due to antibiotics and steroids. She is to be discharged today which is reasonable. She has follow up appointment scheduled with me on 02/23/2024. Documented By: Denver Rasmussen MD 4 [id number] Signed By: <Electronically signed by MD Denver Rasmussen> 12/24/23 [address] [facility] Work Phone: [phone]) 258-695605-07-2024 Telephone encounter Note* Telephone Encounter - Rodney Rinaldi - 08/18/2023 9:14 AM EDT Seen patient checked her mychart yesterday for appointments. [facility]05-07[facility] Miscellaneous Notes* Telephone Encounter - [...] PET here. Thank you Silvia Jha RN * Telephone Encounter - Abdi Israel [...] us know she had a CT at [facility] ordered per Dr Kenyon yesterday. He called her today to let her know that there was something concerning and he wanted her to contact our office. CT report printed from [facility] and images requested. Dr Israel- please advise when you have had a chance to review. Thank you Silvia Jha RN documented in this encounterOhiohealth Grant Medical Center05-06-2024 Telephone encounter Note * Telephone Encounter - Rodney Rinaldi - 08/17/2023 1:18 PM EDT Called patient and left message with date and time of Time, due to her insurance It has to be put out 2 weeks I told her to please call me back if she has any questions thank you. [facility]05-06-[facility] Telephone encounter Note* Telephone Encounter - Silvia Jha RN - 08/17/2023 1:00 PM EDT Scan from July was CXR. Per LORENZO, no need to get images. PSS- I spoke to pt and she is expecting your call to arrange PET here. Thank you Silvia Jha RN [facility]05-06-2024 Telephone encounter Note* Telephone Encounter - Abdi Israel MD - 08/17/2023 9:57 AM EDT Definite changes in the left chest from previous available scan in April. Ordered PET to further characterize findings and please request CT Chest images from 07/2023. Thanks! Abdi [facility]05-03-20[facility] Telephone encounter Note* Telephone Encounter - Silvia Jha RN - 08/14/2023 9:33 AM EDT Pt called in to let us know she had a CT at [facility] ordered per Dr Kenyon yesterday. He called her today to let her know that there was something concerning and he wanted her to contact our office. CT report printed from [facility] and images requested. Dr Israel- please advise when you have had a chance to review. Thank you Silvia Jha RN [facility]02-07-2024 Miscellaneous Notes* Telephone Encounter - Rodney Rinaldi - 05/20/2023 9:59 AM EST Patient is called and scheduled for next week * Telephone Encounter - Silvia Jha RN - 05/20/2023 9:51 AM EST Pt called in and was admitted to [facility] last week. They did CT Chest. She has been waiting on insurance approval for a chest CT and will not need one now. She would like follow up arranged. Reports printed from [facility] and images requested. PSS- please call pt and arrange follow up with Dr Israel for next week. Thank you Silvia Jha RN documented in this encounterOhiohealth Grant Medical Center08-17-2023 History of Present illness Narrative* Abdi Israel MD - 11/27/2022 10:30 AM EDT Images from the original note were not included. Radiation Oncology - Follow Up Note PATIENT NAME: CINTHIA Guerrero PATIENT DIAGNOSIS/PATIENT IDENTIFICATION: Ms. Guerrero is a 62-year-old woman with severe COPD, who is diagnosed with Stage IA3, [id number], non-small cell lung cancer arising from a [...] been following up with pulmonary therapy at [facility] and with her button attaching machine operator Dr. Driver and using her nebulizers. [...] COPD, who is diagnosed with Stage IA3, [id number], non-small cell lung cancer arising from a [...] [facility] She will follow with her button attaching machine operator Dr. Driver to optimize her respiratory [...] which included preparing to see the patient, ijer-hc-gawi patient care, and counseling and educating the patient/family/caregiver. This document has been created with the use of voice recognition technology. It may contain inaccuracies, misspellings, inaccurate syntax or inappropriate word context that are a result of the inadequacies/shortcomings of said technology/software. documented in this encounterOhiohealth Grant Medical Center08-08-2023 Miscellaneous Notes* Telephone Encounter - Julisa Pressley [...] and Dr Driver. Images/report being pushed from [facility]. Rosa Victoria RN * Telephone Encounter - Abdi Israel MD - 11/18/2022 2:11 PM EDT Yes, please cancel CT tomorrow. In addition to the images, please request any office notes from Dr. Kenyon as well as her button attaching machine operator. Thanks! Abdi * Telephone Encounter - Rosa Victoria RN - 11/18/2022 1:39 PM EDT Pt called for CT 11/19/[address]. [address] completed 09/24/22 at [facility]. CT chest verified and will send images/report. LORENZO: Would you like to cancel CT? Please advise Rosa Victoria RN documented in this encounterOhiohealth Grant Medical Center03-16-2023 Evaluation note* Encounter Date Diagnosis Assessment Notes Treatment Notes Treatment Clinical Notes Jun, Abnormality present on gross pat hology (ICD-10 - R89.7) Patient has chronic respiratory problems systemic symptoms of infection as well as change in her cough has not occurred. She also does not cough up significant sputum. Though the morphologic abnormality of fungal like structures was seen on her [facility] no cultures were sent. I wanted to comparison CTfor follow-up but her insurance denied. Therefore we got some serum Aspergillus titers as well as an tigens as well as sputum culture. These were all normal. For now observing off antifungal therapy. She is to call if any change in her respiratory status or symptoms occur. She does have follow-up CTscans routinely scheduled by her oncologist. Obviously we will have to wait for the next 1 to be done for comparison purposes. Jun,History of lung cancer (ICD-10 - Z85.118) [facility] Other 02-20-2023 History of Present illness Narrative* Abdi Israel MD - 06/02/2022 11:53 PM EST Radiation Oncology - Follow Up Note PATIENT NAME: CINTHIA Guerrero PATIENT Signed by: Abdi Israel MD I spent a total of 20 minutes on the date of the service which included preparing to see the patient, ejtm-ka-grki patient care, and counseling and educating the patient/family/caregiver. This document has been created with the use of voice recognition technology. It may contain inaccuracies, misspellings, inaccurate syntax or inappropriate word context that are a result of the inadequacies/shortcomings of said technology/software. documented in this encounterOhiohealth Grant Medical Center02-09-2023 Evaluation note* Encounter Date Diagnosis Assessment Notes Treatment Notes Treatment Clinical Notes May, Abnormality present on gross pat hology (ICD-10 - R89.7) While hemoptysis is a concerning finding of Aspergillus I have to say this one- time occurrence makes this type of infection seem less likely. Her CT scan when taken in February is very concerning forpotential malignancy though I do realize the path did not show any malignant cells. Without cultureor other indices to suggest Aspergillus difficult to say that this fungus though well could be prese nt is causing any clinical disease. She has [...] also be ordered. Once this is all r eturned we will determine whether or not voriconazole will be implemented. May,History of lung cancer (ICD-10 - Z85.118) [facility] Other 02-01-2023 Miscellaneous Notes* Telephone Encounter - Abdi Israel MD - 05/14/2022 10:40 PM EST Thanks! Abdi * Telephone Encounter - Kendal Jha [facility] - 05/14/2022 1:59 PM EST Records faxed to Dr. Conde. Requested images be pushed to [facility]. * Telephone Encounter - Telma Pak - [...] yesterday showing fungal/aspergillus infection. Spoke with her button attaching machine operator, Dr. Cross, today and agreed to [...] Thanks Julisa Pressley LPN documented in this encounterCleveland [id number] History of Present illness Narrative* Interface Note - 05/09/2022 8:00 PM EST Epic Scheduled Downtime: 05/10/2022 1:00:00 AM to 05/10/2022 3:56:00 AM documented in this encounterOhiohealth Grant Medical Center01-27-2023 Nurse Note* Luz Maria Blanca [...] Luz Maria Blanca RN documented in this encounterOhiohealth Grant Medical Center01-24-2023 History of Present illness Narrative* Sahara Briceno RT(R) - 05/06/2022 8:45 AM EST Radiology [...] 06, 2022 8:53 AM documented in this encounterOhiohealth Grant Medical Center01-16-2023 History of Present illness Narrative* Vitor Kaur MD - 04/28/2022 3:03 PM EST VIRTUAL VISIT PROGRESS NOTE This is a virtual visit using Pictorious video visit. It required patient-provider interaction for [...] eating well. COPD managed locally by a button attaching machine operator. HISTORY REVIEWED (electronic chart updated): PAST [...] Emphysema. Controlled and stable; managed by local button attaching machine operator. I spent a total of 60 minutes on the date of the service which included preparing to see the patient, phwq-vv-wind patient care, completing clinical documentation, obtaining and/or reviewing separately obtained history, performing a medically appropriate examination, counseling and educating the pat ient/family/caregiver, ordering medications, tests, or procedures, communicating with other HCPs (not separately reported), independently interpreting results (not separately reported), communicatingresults to the patient/family/caregiver, and care coordination (not separately reported) Vitor Kaur MD April 28, 2022 documented in this encounterOhiohealth Grant Medical Center01-11-2023 Miscellaneous Notes* Telephone Encounter - Telma Pak - 04/23/2022 9:58 AM EST Patient has been scheduled for both & confirmed appt day & time. Telma Pak * Telephone Encounter - Telma Pak - 04/23/2022 9:10 AM EST Called patient to schedule her for EKG & labs per e-mail. No answer, LMOV requesting a returnedphone call. 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 Please try to access the PET avid area if possible. Consultation request/referral by: Abdi Israel MD ([facility]) Reviewed by: PHANI Kaur MD April 22, 2022 3:49 PM Addendum: CBC with diff: WBC 6.81 03/02/2018 RBC 4.94 03/02/2018 Hemoglobin 14.7 03/02/2018 Hematocrit 44.5 03/02/2018 MCV 90.1 03/02/2018 MCH 29.8 03/02/2018 MCHC 33.0 03/02/2018 RDW-CV 12.4 03/02/2018 Platelet Count 234 03/02/2018 MPV 10.3 03/02/2018 Neut% 64.3 03/02/2018 Lymph% 25.3 03/02/2018 Bath% 9.1 03/02/2018 Eosin% 0.7 03/02/2018 Baso% 0.6 03/02/2018 Abs Neut (ANC) 4.36 03/02/2018 Abs Bath 0.62 03/02/2018 Abs Eosin 0.05 03/02/2018 Abs [...] - 0.96 mg/dL Final documented in this encounterOhiohealth Grant Medical Center01-10-2023 Miscellaneous Notes* Telephone Encounter - [...] time. Julisa Pressley LPN documented in this encounterOhiohealth Grant Medical Center12-02-2022 History of Present illness Narrative* Abdi Israel MD - 03/14/2022 11:44 PM EST Radiation Oncology - Follow Up Note PATIENT NAME: Omaira Guerrero PATIENT Signed by: Abdi Israel MD I spent a total of 20 minutes on the date of the service which included preparing to see the patient, umyx-td-taus patient care, and counseling and educating the patient/family/caregiver. This document has been created with the use of voice recognition technology. It may contain inaccuracies, misspellings, inaccurate syntax or inappropriate word context that are a result of the inadequacies/shortcomings of said technology/software. documented in this encounterOhiohealth Grant Medical Center11-25-2022 History of Present illness Narrative* Stacia Russell [...] 07, 2022 TIME: 7:39 AM * Sahara Briceno, RT(R) - 03/07/2022 7:30 AM EST RADIOLOGY SERVICE PROGRESS NOTE SERVICE DATE: 03/07/2022 SERVICE TIME: 7:51 AM PATIENT IDENTITY VERIFICATION COMPLETED USING TWO (2) STANDARD IDENTIFIERS: Name and Date of confirmed by patient verbally POST EXAM PIV STATUS: Discontinued PROCEDURE TYPE: NM INJECT: PET/CT BODY SCAN. 7.2 mCi F18 FDG. No other medications given.. ADMINISTRATION TIME: 0736 PATIENT DISCHARGED TO: Ambulatory patient, left [place] department area. A Diagnostic radioactive procedure has taken place, with no further precautions necessary other than routine body substance precautions. More information regarding radiation safety can be found usingthis link: [email or web address] 20Diagnostic%20Nuclear%20Medicine%20Procedures.pdf SIGNATURE: Sahara Briceno RT(R) PATIENT NAME: Omaira Guerrero DATE: March 07, 2022 TIME: 7:51 AM PAGER/CONTACT #: documented in this encounterOhiohealth Grant Medical Center11-11-2022 Miscellaneous Notes* Telephone Encounter - [...] then follow-up to review documented in this encounterOhiohealth Grant Medical Center11-10-2022 Miscellaneous Notes* Telephone Encounter - [...] then follow-up to review documented in this encounterOhiohealth Grant Medical Center02-24-2022 History of Present illness Narrative* Abdi Israel MD - 06/06/2021 4:50 PM EST Radiation Oncology - Follow Up Note PATIENT NAME: Omaira Guerrero PATIENT DIAGNOSIS/PATIENT IDENTIFICATION: Ms. Guerrero is a 60-year-old woman with severe COPD, who is diagnosed with Stage IA3, [id number], non-small cell lung cancer arising from a [...] COPD, who is diagnosed with Stage IA3, [id number], non-small cell lung cancer arising from a [...] which included preparing to see the patient, azvt-df-[id number] patient care and counseling and educating the patient/family/caregiver. This document has been created with the use of voice recognition technology. It may contain inaccuracies, misspellings, inaccurate syntax or inappropriate word context that are a result of the inadequacies/shortcomings of said technology/software. documented in this encounterOhiohealth Grant Medical Center02-16-2022 History of Present illness Narrative* Stacia Russell [...] 29, 2021 TIME: 10:47 AM * Sahara Briceno RT(R) - 05/29/2021 10:45 AM EST Radiology [...] 29, 2021 11:02 AM documented in this encounterOhiohealth Grant Medical Center10-01-2021 NoteChief Complaint consultation for nevus HPI Staff 60 year old female presents on consultation from Dr. Kenyon for right lower leg fresh colored skin lesion. Present for 4 months. Scabbed area from recent trama. Denies itching. Also notes dark pigmentedlesion to right religious. Present 4 months. Does not bleed or itch. History of Present Illness 60 yo female with h/o COPD, previous lung cancer, on oxygen; referred for changing skin lesions; right lower extremity lesion enlarging; recently scratched so scabbed over; no bleeding; right religious lesion with small scab, no pain or [...] nodes, cyanosis, clubbing. Skin: no rashes right religious with 4 mm raised, erythematous lesion with [...] infarction: Brother. Cardiac arrest: Mother, Father and Sister.[facility]herrington HospitalComment on above:Result Comment: Electronically Signed By: JIM DAVENPORT, Jose Domínguez\Date and Time Signed: 01/11/21 11:20 [id number] History general Narrative - Reported* Type Description Date Medical History COPD Surgical HistoryappendectomySurgical HistorycsectionHospitalization HistoryPNA at [place]/[place] [facility] Other Evaluation note* Diagnosis Non-small cell cancer of left lung (HCC)- Primary Neoplasm of lung Neoplasm of unspecified nature of respiratory system [facility] Diagnosis Neoplasm of lung- Primary Neoplasm of unspecified nature of respiratory system [facility]* Diagnosis Non-small cell cancer of left lung (HCC)- Primary [facility]* Diagnosis Lung mass- Primary Swelling, mass, or lump in chest documented [facility]* Diagnosis Preoperative examination- Primary Preoperative examination, unspecified Bronchiolar disease Other diseases of trachea and bronchus documented in this encounter [facility]* Diagnosis Non-small cell cancer of left lung (HCC)- Primary Lung mass Swelling, mass, or lump in chest Centrilobular emphysema (HCC) Other emphysema Bronchiolar disease Other diseases of trachea and bronchus documented in this encounter [facility]* Diagnosis Bronchiolar disease Other diseases of trachea and bronchus Lung nodule Solitary pulmonary nodule [facility]* Diagnosis Aspergillus pneumonia (HCC)- Primary Aspergillosis Non-small cell cancer of left lung (HCC) documented [facility]* Diagnosis Non-small cell cancer of left lung (HCC)- Primary [facility] noteNo InformationNort [facility] Other evalulushb note* Diagnosis Neoplasm of lung- Primary Neoplasm of unspecified nature of respiratory system documented in this encounter [facility] note* Diagnosis Onset Date Resolution Status Chronic respiratory failure with hypoxia acuteCOPD exacerbationacuteExertional shortness of breathacutePneumoniaacute Pulmonary cachexia due to COPDacuteTachycardiaacute [facility] Work Phone: Evaluation note* Diagnosis Onset Date Resolution Status Acute hypoxic respiratory failure acuteCachexiaacuteChronic respiratory failure with hypoxiaacuteCOPD exacerbation acuteExertional shortness of breathacutePneumoniaacutePulmonary cachexia due to COPDacuteTachycardiaacute [facility] Work Phone: Evaluation note* Diagnosis Malignant neoplasm of unspecified part of unspecified bronchus or lung (HCC)- Primary [facility] Diagnosis Neoplasm- Primary Neoplasm of unspecified nature, site unspecified [facility]* Diagnosis Onset Date Resolution Status Chronic respiratory failure with hypoxia acuteCOPD (chronic obstructive pulmonary disease)acute 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 Follows with outside pulm at [facility], Dr. Valery DAVIS in October per pt. Diminished breath sounds bilaterally throughout, no wheezing. SpO2 95% on 2L O2. 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 Ptreports she called button attaching machine operator's office because she felt like her breathing was bad , pt unable to elaborate as to what she meant by her breathing being bad . Pt stated that she feels like the hot, humid weather is making her breathing problems progress . Denies increased SOB or cough. * Assessment & Plan Note - Brei Kaur PA-C - 11/17/2023 3:24 PM EDTAssociated Problem(s): Non-small cell cancer of left lung (HCC) Assessment: 2019, treated with SBRT. [facility] Diagnosis Onset Date Resolution Status Chronic respiratory failure with hypoxia acuteCOPD (chronic obstructive pulmonary disease)acuteChronic respiratory failure with hypoxiaacuteCOPD (chronic obstructive pulmonary disease)acuteSleep apnea, obstructiveacute [facility] Work Phone: Evaluation note* Diagnosis Lymphadenopathy- Primary [...] health [facility] Diagnosis [...] health [facility]* Diagnosis Onset Date Resolution Status Chronic respiratory failure with hypoxia acuteCOPD (chronic obstructive pulmonary disease)acuteChronic respiratory failure with hypoxiaacuteCOPD (chronic obstructive pulmonary disease)acuteSleep apnea, obstructiveacuteChronic respiratory failure with hypoxiaacuteCOPD (chronic obstructive pulmonary disease)acutePulmonary cachexia due to COPDacute Sleep apnea, obstructiveacute [facility] Work Phone: Evaluation note* Diagnosis Malignant [...] hazards to health documented in this encounter [facility] note* Diagnosis Onset Date Resolution Status Chronic respiratory failure with hypoxia acuteCOPD (chronic obstructive pulmonary disease)acuteChronic respiratory failure with hypoxiaacuteCOPD (chronic obstructive pulmonary disease)acuteSleep apnea, obstructiveacuteAcute hypoxic respiratory failureacuteCachexiaacute Chronic hypercapnic respiratory failureacuteChronic respiratory failure with hypoxiaacuteCOPD (chronic obstructive pulmonary disease)acuteCOPD exacerbation acutePulmonary cachexia due to COPDacuteSleep apnea, obstructiveacute [facility] Work Phone: Evaluation note* Diagnosis Lung [...] health [facility] Diagnosis Neoplasm of lung Neoplasm of [...] health [facility] Diagnosis Neoplasm of lung Neoplasm of [...] health [facility]* Diagnosis Preoperative examination- Primary Preoperative examination, [...] or lung (HCC) [facility]* Diagnosis Preoperative examination- Primary Preoperative examination, [...] lung (HCC)- Primary [facility] Diagnosis Right ear impacted cerumen- Primary Impacted cerumen Foreign body of left ear, initial encounter documented in this encounter [facility]* Diagnosis Preoperative examination- Primary Preoperative examination, [...] of tobacco use, presenting hazards to health Neoplasm of lung Neoplasm of unspecified nature of respiratory system documented [facility]* Diagnosis Onset Date Resolution Status Admit Date Cavitary lung disease acuteMarch 2024 10:59amCOPD (chronic obstructive pulmonary disease)acute June 16, 2024 10:59am [facility] Work Phone: Evaluation note* Diagnosis Preoperative examination- Primary Preoperative examination, [...] lung (HCC)- Primary [facility]* Diagnosis Chronic obstructive pulmonary disease, unspecified COPD type (CMS/HCC) documented in this encounter [facility]* Diagnosis Chronic obstructive pulmonary disease, unspecified COPD type (CMS/HCC) documented in this encounter [facility]* Diagnosis Bilateral impacted cerumen- Primary Impacted cerumen documented in this encounter [facility]* Diagnosis Onset Date Resolution Status Admit Date Cavitary lung disease acuteJuly 2024 11:07amCOPD (chronic obstructive pulmonary disease)acute October 27, 2024 11:07am [facility] Work Phone: History and physical note Author Mg Vaughn [facility] December 20, 2023 10:58pmNote Date/TimeSept2023 10:58pm[place] [address] Hospitalist H&P Signed Patient: Cinthia Guerrero MR#: [id number] : 1960 Acct:[id number] Age/Sex: 63 / F Adm Date: 4 Loc: Room: [address] [place] [address] Type: ADM INOo Attending Dr: Mg Vaughn MD Copies to: MD Adithya Koroma MD~ HPI DATE OF EXAMINATION: 12/20/23 CHIEF COMPLAINT: COPD exacerbation HISTORY OF PRESENT ILLNESS: This is 61-year-old female with chronic respiratory failure secondary to COPD, on supplemental oxygen at home, pulmonary cachexia, [facility] [facility]. At thattime COVID test was done which was negative. [...] negative unless noted below or in HPI [facility] Medical History (Updated 12/20/23 @ 21:57 by [...] mL nebulization soln 3 ml inhalation Q6H 05/13/23[History Confirmed 12/20/23] montelukast 10 mg tablet 10 [...] inh inhalation Q6HR PRN shortness of breath orwheezing 09/29/23 [History Confirmed 12/20/23] cetirizine 10 mg [...] % (Auto) 9.8 % (.) 12/20/23 20:08 Bath % (Auto) 5.9 % (.) 12/20/23 20:08 Eos % (Auto) 0.1 % (.) 12/20/23 20:08 Baso % (Auto) 0.3 % (.) 12/20/23 20:08 Nucleat RBC Rel Count 0.1 /100 WBC (0-0.5) 12/20/23 20:08 Neut # (Auto) 7.0 x10E3/uL (1.8-7.7) 12/20/23 20:08 Lymph # (Auto) 0.8 x10E3/uL (1.00-4.8) L 12/20/23 20:08 Bath # (Auto) 0.5 x10E3/uL (0.0-0.8) 12/20/23 20:08 [...] -Will consult pulmonology. Dr. Gannon is her button attaching machine operator. -Budesonide via nebulization every 12 hours, and DuoNebs yvotso-xir-bwesa. -O2 supplementation to maintain O2 sats greater [...] days): 2 Documented By: Mg Vaughn MD 12/040 Signed By: <Electronically signed by Mg Vaughn MD> 12/20/[address] [facility] Work Phone: Hospital Discharge instructions Additional Instructions I may not have addressed or treated all of your medical illnesses or the abnormal blood work or imaging studies during this hospitalization. Please ask your primary care provider to obtain [facility] records entirely to follow up on all of the abnormal physical, laboratory, and imaging findings that I have not addressed. Please return back to the emergency room or seek medical attention if your symptoms worsen or return. You asked me to give you the name of the lung specialist who is affiliated with [facility]. Please follow-up with Dr. Rasmussen regarding COPD, lung nodule and pulmonary care. Until you get your first appointment with Dr. Rasmussen, continue to follow-up with Dr. Driver guarding your lung nodule and COPD You would need to have follow-up on lung nodule that is seen before Discharging you from [facility] does not mean that your medical care [...] Thank you. Continue home oxygen per chronic orders.[facility] Work Phone: [facility] for referral (narrative)* Diagnostic Procedure Only (Routine) - Additional Clinical Info NeededSpecialtyDiagnoses / ProceduresReferred By ContactRefnorthridge hospital medical centered To ContactMOLECULAR & FUNCTIONAL IMAGING Diagnoses Neoplasm of lung Procedures NM PET/CT SKULL-THIGH INITIAL PET IMAGING CT ATTENUATION SKULL BASE MID-THIGH Abdi Israel MD [address] [place] [address] [place] [address] Molecular & Functional Imaging [address] [place] [address] Referral IDStatusReasonStart DateExpiration DateVisits RequestedVisits [id number] Clinical Info Needed Auto-Generated Referral / [facility] for referral (narrative)* Diagnostic Procedure Only (Routine) - Additional Clinical Info NeededSpecialtyDiagnoses / Procedures Referred By ContactReferred To ContactMOLECULAR & FUNCTIONAL IMAGING Diagnoses Malignant neoplasm of unspecified part of unspecified bronchus or lung (HCC) Procedures NM PET/CT SKULL-THIGH SUBSEQUENT PET IMAGING CT ATTENUATION SKULL BASE MID-THIGH Abdi Israel MD [address] [place] [address] [place] [address] Molecular & Functional Imaging [address] [place] [address] Referral IDStatusReasonStart DateExpiration DateVisits RequestedVisits [id number] Clinical Info Needed Auto-Generated Referral / [facility] for referral (narrative)* Outpatient Procedure (Routine) - ClosedSpecialtyDiagnoses / ProceduresReferred By ContactReferred To Contact [facility] Diagnoses Non-small cell cancer of left lung (HCC) Lymphadenopathy Procedures ECG COMPLETE ECG ROUTINE ECG W/LEAST 12 LDS W/I&R Teo Craft MD [address] [place] [address] [place] [address] Referral IDStatusReasonStart DateExpiration DateVisits RequestedVisits [id number] Auto-Generated Referral / * Consult, Test, Treat (Routine) - AuthorizedSpecialtyDiagnoses / Procedures Referred By ContactReferred To Contact Diagnoses Non-small cell cancer of left lung (HCC) 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) Lymphadenopathy Procedures REFER TO [facility] - PREOPERATIVE OPTIMIZATION OFFICE/OUTPATIENT [employer] 60 MINUTES Teo Craft MD [address] [place] [address] Referral IDStatusReasonStwinfield DateExpiration DateVisits RequestedVisits [id number] PCP Requested Referral [facility] for referral (narrative)* Diagnostic Procedure Only (Routine) - ClosedSpecialtyDiagnoses / ProceduresReferred By ContactReferred To ContactMOLECULAR & FUNCTIONAL IMAGING Diagnoses Malignant neoplasm of unspecified part of unspecified bronchus or lung (HCC) Procedures NM PET/CT SKULL-THIGH SUBSEQUENT PET IMAGING CT ATTENUATION SKULL BASE MID-THIGH Abdi Israel MD [address] [place] [address] [address] [place] [id number] Molecular & Functional Imaging [address] [place] [address] Referral IDStatusReasonStart DateExpiration DateVisits RequestedVisits [id number] Auto-Generated Referral / [facility] for referral (narrative)* Diagnostic Procedure Only (Routine) - ClosedSpecialtyDiagnoses / ProceduresReferred By ContactReferred To ContactMOLECULAR & FUNCTIONAL IMAGING Diagnoses Neoplasm of lung Procedures NM PET/CT SKULL-THIGH INITIAL PET IMAGING CT ATTENUATION SKULL BASE MID-THIGH Abdi Israel MD [address] [place] [address] [address] [place] [place] [id number] Molecular & Functional Imaging [address] [place] [address] Referral IDStatusReasonHalfway DateExpiration DateVisits RequestedVisits [id number] Auto-Generated Referral / [facility] for referral (narrative)* Diagnostic Procedure Only (Routine) - ClosedSpecialtyDiagnoses / ProceduresReferred By ContactReferred To ContactCT IMAGING Diagnoses Neoplasm of lung Procedures CT CHEST W IVCON CAT SCAN OF CHEST CONTRAST Abdi Israel MD [address] [place] [address] [address] [place] [phone] [facility] [place] [address] Referral IDStatusReasonStwinfield DateExpiration DateVisits RequestedVisits [id number] Auto-Generated Referral / [facility] for referral (narrative)No reason for referral information availableMercy Health St. [facility] Work Phone: Summary Purpose Family History Relationship Condition Age at Onset Recorded Date/T alvarez brother Coronary artery disease Unknown Heart diseaseUnknownfatherCoronary artery diseaseUnknownsisterCoronary artery diseaseUnknown Advance Directives TypeDate RecordedPatient RepresentativeExplanationAdvance Directive(s)Advance Directive(s)03/19/2018 8:37 AM Advance Directive Response Recorded Date/ Time Advance Directives No February 11:15am Advance Directive Response Recorded Date/ Time Advance Directives No February 12:15pm Advance Directive Response Recorded Date/ Time Advance Directives No September 28 2:19pm Advance Directive Response Recorded Date/ Time Advance Directives No September 28 1:19pm Reason for Referral SpecialtyDiagnoses / ProceduresReferred By ContactReferred To ContactCT IMAGING Diagnoses Non-small cell cancer of left lung (HCC) Neoplasm of lung Procedures CT CHEST W IVCON DIAGNOSTIC COMPUTED TOMOGRAPHY THORAX W/CONTRAST Abdi Israel MD [address] [place] [address] [place] [address] Ct Imaging Referral IDStatusReasonHalfway DateExpiration DateVisits RequestedVisits [id number] Review Auto-Generated Referral /[id number] / ProceduresReferred By ContactReferred To ContactCT IMAGING Diagnoses Lung mass Procedures CT CHEST WO IVCON DIAGNOSTIC COMPUTED TOMOGRAPHY THORAX W/O CNTRST Vitor Kaur MD [address] [place] [id number] [facility] Referral IDStatusReasonStwinfield DateExpiration DateVisits RequestedVisits [id number] Review Auto-Generated Referral /[id number] / ProceduresReferred By ContactReferred To [facility] Diagnoses Lung mass Procedures ECG COMPLETE ECG ROUTINE ECG W/LEAST 12 LDS W/I&R Vitor Kaur MD [address] [place] [address] [facility] [place] [address] [place] [address] Referral IDStatusReasonStart DateExpiration DateVisits RequestedVisits [id number] Review Auto-Generated Referral /[id number] / ProceduresReferred By ContactReferred To ContactInfectious Diseases Diagnoses Aspergillus pneumonia (HCC) Non-small cell cancer of left lung (HCC) Procedures CONSULT TO INFECTIOUS DISEASES Abdi Israel MD [address] [place] [address] [address] [place] [phone] Referral IDStatusReasonStart DateExpiration DateVisits RequestedVisits [id number] Not Required PCP Requested Referral /[id number] / ProceduresReferred By ContactReferred To ContactCT IMAGING Diagnoses Neoplasm of lung Procedures CT CHEST W IVCON DIAGNOSTIC COMPUTED TOMOGRAPHY THORAX W/CONTRAST Abdi Israel MD [address] [place] [address] [place] [address] Ct [facility] [place] [address] Referral IDStatusReasonStwinfield DateExpiration DateVisits RequestedVisits [id number] Review Auto-Generated Referral /[id number] / ProceduresReferred By ContactReferred To ContactEnt - Otolaryngology Diagnoses Non-small cell cancer of left lung (HCC) 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) Procedures CONSULT TO ENT OFFICE/OUTPATIENT [facility] 60 MINUTES Abdi Israel MD [address] [place] [address] [address] [place] [place] [phone] Referral IDStatusReBryan [facility] DateExpiration DateVisits RequestedVisits [id number] PCP Requested Referral /[id number] / ProceduresReferred By ContactReferred To ContactCT IMAGING Diagnoses Malignant neoplasm of unspecified part of unspecified bronchus or lung (HCC) Procedures CT CHEST W IVCON DIAGNOSTIC COMPUTED TOMOGRAPHY THORAX W/CONTRAST Abdi Israel MD [address] [place] [address] [place] [address] Ct [facility] [place] [address] Referral IDStatusReasonStart DateExpiration DateVisits RequestedVisits [id number] Auto-Generated Referral /[id number] / ProceduresReferred By ContactReferred To ContactMOLECULAR & FUNCTIONAL IMAGING Diagnoses Malignant neoplasm of unspecified part of unspecified bronchus or lung (HCC) Procedures NM PET/CT SKULL-THIGH SUBSEQUENT PET IMAGING CT ATTENUATION SKULL BASE MID-THIGH Abdi Israel MD [address] [place] [address] [place] [address] Molecular [facility] Functional Imaging [address] [place] [address] Referral IDStatusReasonStwinfield DateExpiration DateVisits RequestedVisits [id number] Auto-Generated Referral /[id number] / ProceduresReferred By ContactReferred To ContactCT IMAGING Diagnoses Lung mass Procedures CT CHEST WO IVCON DIAGNOSTIC COMPUTED TOMOGRAPHY THORAX W/O CNTRST Vitor Kaur MD [address] [place] [address] [address] [facility] [place] [address] Referral IDStatusReasonStwinfield DateExpiration DateVisits RequestedVisits [id number] Auto-Generated Referral /[id number] IDStatusReasonStart DateExpiration DateVisits RequestedVisits [id number] Auto-Generated Referral /[id number] IDStatusReasonStart DateExpiration DateVisits RequestedVisits [id number] Auto-Generated Referral Medications Administered Section Medication OrderMAR ActionAction DateDoseRateSite NaCl 0.9% iv infusion 5-30 mL/hr, INTRAVENOUS, [...] Sleep apnea, obstructive Chief Complaint Ref: Dr. Scott COPD sob-hx copdReason for VisitChronic respiratory failure with hypoxia COPD (chronic obstructive pulmonary disease) Chronic respiratory failure with hypoxia COPD (chronic obstructive pulmonary disease) Sleep apnea, obstructive Chronic respiratory failure with hypoxia COPD (chronic obstructive pulmonary disease) Pulmonary cachexia due to COPD Sleep apnea, obstructive Chief Complaint Ref: Dr. Sonia FERNANDEZ sob-hx copd sob-hx copdReason for VisitChronic respiratory failure with hypoxia COPD (chronic obstructive [...] 2024 2:29pm [id number] February 26, 2024 11:33am Chief Complaint Admit Date CEA: 3 mo f/u COPD, Cavitary Lung Diseas e June 16, 2024 10:59am Reason for Visit Admit Date Cavitary lung disease June 16, 2024 10 :59am COPD (chronic obstructive pulmonary dise ase) June 16, 2024 10:59am Chief Complaint Admit Date 4 mo f/u COPD October 27, 2024 11:0 7am Reason for Visit Admit Date Cavitary lung disease October 27, 2024 11 :07am COPD (chronic obstructive pulmonary dise ase) October 27, 2024 11:07am Additional Source Comments INFORMATION SOURCE (unrecogn ized section and content) DATE CREATED AUTHOR 10/06/2017 [facility] DATE CREATED AUTHOR AUTHOR'S ORGANIZ ATION 10/09/2017 [facility] DATE CREATED AUTHOR AUTHOR'S ORGANIZ ATION 03/22/2018 [facility] DATE CREATED AUTHOR AUTHOR'S ORGANIZ ATION 03/26/2021 [facility] DATE CREATED AUTHOR AUTHOR'S ORGANIZ ATION 09/19/2022 [facility] DATE CREATED AUTHOR AUTHOR'S ORGANIZ ATION 09/14/2023 [facility] DATE CREATED AUTHOR AUTHOR'S ORGANIZ ATION 11/19/2023 [facility] DATE CREATED AUTHOR AUTHOR'S ORGANIZ ATION 03/12/2024 [facility] DATE CREATED AUTHOR AUTHOR'S ORGANIZ ATION 06/30/2024 [facility] DATE CREATED AUTHOR AUTHOR'S ORGANIZ ATION 08/19/2024 [facility] EPIC Source Comments (unrecognize d section and content) In the event this informatio n is protected by the Federal Confidentiality of Alcohol and Drug Abuse Patient Records regulations: The Federal rules restrict any use of the information to criminally investigate or prosecute any alcohol or drug abuse patient.[facility] Center[facility] the event this information is protected by the Federal Confidentiality of Alcohol and Drug Abuse Patient Records regulations: The Federal rules restrict any use of the information to criminally investigate or prosecute any alcohol or drug abuse patient.[facility] CenterIn the event this information is protected by the Federal Confidentiality of Alcohol and Drug Abuse Patient Records regulations: The Federal rules restrict any use of the information to criminally investigate or prosecute any alcohol or drug abuse patient.[facility] CenterIn the event this information is protected by the Federal Confidentiality of Alcohol and Drug Abuse Patient Records regulations: The Federal rules restrict any use of the information to criminally investigate or prosecute any alcohol or drug abuse patient.[facility] CenterIn the event this information is protected by the Federal Confidentiality of Alcohol and Drug Abuse Patient Records regulations: The Federal rules restrict any use of the information to criminally investigate or prosecute any alcohol or drug abuse patient.[facility] CenterIn the event this information is protected by the Federal Confidentiality of Alcohol and Drug Abuse Patient Records regulations: The Federal rules restrict any use of the information to criminally investigate or prosecute any alcohol or drug abuse patient.[facility] CenterIn the event this information is protected by the Federal Confidentiality of Alcohol and Drug Abuse Patient Records regulations: The Federal rules restrict any use of the information to criminally investigate or prosecute any alcohol or drug abuse patient.[facility] CenterIn the event this information is protected by the Federal Confidentiality of Alcohol and Drug Abuse Patient Records regulations: The Federal rules restrict any use of the information to criminally investigate or prosecute any alcohol or drug abuse patient.[facility] CenterIn the event this information is protected by the Federal Confidentiality of Alcohol and Drug Abuse Patient Records regulations: The Federal rules restrict any use of the information to criminally investigate or prosecute any alcohol or drug abuse patient.[facility] CenterIn the event this information is protected by the Federal Confidentiality of Alcohol and Drug Abuse Patient Records regulations: The Federal rules restrict any use of the information to criminally investigate or prosecute any alcohol or drug abuse patient.[facility] CenterIn the event this information is protected by the Federal Confidentiality of Alcohol and Drug Abuse Patient Records regulations: The Federal rules restrict any use of the information to criminally investigate or prosecute any alcohol or drug abuse patient.[facility] CenterIn the event this information is protected by the Federal Confidentiality of Alcohol and Drug Abuse Patient Records regulations: The Federal rules restrict any use of the information to criminally investigate or prosecute any alcohol or drug abuse patient.[facility] CenterIn the event this information is protected by the Federal Confidentiality of Alcohol and Drug Abuse Patient Records regulations: The Federal rules restrict any use of the information to criminally investigate or prosecute any alcohol or drug abuse patient.[facility] CenterIn the event this information is protected by the Federal Confidentiality of Alcohol and Drug Abuse Patient Records regulations: The Federal rules restrict any use of the information to criminally investigate or prosecute any alcohol or drug abuse patient.[facility] CenterIn the event this information is protected by the Federal Confidentiality of Alcohol and Drug Abuse Patient Records regulations: The Federal rules restrict any use of the information to criminally investigate or prosecute any alcohol or drug abuse patient.[facility] CenterIn the event this information is protected by the Federal Confidentiality of Alcohol and Drug Abuse Patient Records regulations: The Federal rules restrict any use of the information to criminally investigate or prosecute any alcohol or drug abuse patient.[facility] CenterIn the event this information is protected by the Federal Confidentiality of Alcohol and Drug Abuse Patient Records regulations: The Federal rules restrict any use of the information to criminally investigate or prosecute any alcohol or drug abuse patient.[facility] CenterIn the event this information is protected by the Federal Confidentiality of Alcohol and Drug Abuse Patient Records regulations: The Federal rules restrict any use of the information to criminally investigate or prosecute any alcohol or drug abuse patient.[facility] CenterIn the event this information is protected by the Federal Confidentiality of Alcohol and Drug Abuse Patient Records regulations: The Federal rules restrict any use of the information to criminally investigate or prosecute any alcohol or drug abuse patient.[facility] CenterIn the event this information is protected by the Federal Confidentiality of Alcohol and Drug Abuse Patient Records regulations: The Federal rules restrict any use of the information to criminally investigate or prosecute any alcohol or drug abuse patient.[facility] CenterIn the event this information is protected by the Federal Confidentiality of Alcohol and Drug Abuse Patient Records regulations: The Federal rules restrict any use of the information to criminally investigate or prosecute any alcohol or drug abuse patient.[facility] CenterIn the event this information is protected by the Federal Confidentiality of Alcohol and Drug Abuse Patient Records regulations: The Federal rules restrict any use of the information to criminally investigate or prosecute any alcohol or drug abuse patient.[facility] CenterIn the event this information is protected by the Federal Confidentiality of Alcohol and Drug Abuse Patient Records regulations: The Federal rules restrict any use of the information to criminally investigate or prosecute any alcohol or drug abuse patient.[facility] CenterIn the event this information is protected by the Federal Confidentiality of Alcohol and Drug Abuse Patient Records regulations: The Federal rules restrict any use of the information to criminally investigate or prosecute any alcohol or drug abuse patient.[facility] CenterIn the event this information is protected by the Federal Confidentiality of Alcohol and Drug Abuse Patient Records regulations: The Federal rules restrict any use of the information to criminally investigate or prosecute any alcohol or drug abuse patient.[facility] CenterIn the event this information is protected by the Federal Confidentiality of Alcohol and Drug Abuse Patient Records regulations: The Federal rules restrict any use of the information to criminally investigate or prosecute any alcohol or drug abuse patient.[facility] CenterIn the event this information is protected by the Federal Confidentiality of Alcohol and Drug Abuse Patient Records regulations: The Federal rules restrict any use of the information to criminally investigate or prosecute any alcohol or drug abuse patient.[facility] CenterIn the event this information is protected by the Federal Confidentiality of Alcohol and Drug Abuse Patient Records regulations: The Federal rules restrict any use of the information to criminally investigate or prosecute any alcohol or drug abuse patient.[facility] CenterIn the event this information is protected by the Federal Confidentiality of Alcohol and Drug Abuse Patient Records regulations: The Federal rules restrict any use of the information to criminally investigate or prosecute any alcohol or drug abuse patient.[facility] CenterIn the event this information is protected by the Federal Confidentiality of Alcohol and Drug Abuse Patient Records regulations: The Federal rules restrict any use of the information to criminally investigate or prosecute any alcohol or drug abuse patient.[facility] CenterIn the event this information is protected by the Federal Confidentiality of Alcohol and Drug Abuse Patient Records regulations: The Federal rules restrict any use of the information to criminally investigate or prosecute any alcohol or drug abuse patient.[facility] CenterIn the event this information is protected by the Federal Confidentiality of Alcohol and Drug Abuse Patient Records regulations: The Federal rules restrict any use of the information to criminally investigate or prosecute any alcohol or drug abuse patient.[facility] CenterIn the event this information is protected by the Federal Confidentiality of Alcohol and Drug Abuse Patient Records regulations: The Federal rules restrict any use of the information to criminally investigate or prosecute any alcohol or drug abuse patient.[facility] CenterIn the event this information is protected by the Federal Confidentiality of Alcohol and Drug Abuse Patient Records regulations: The Federal rules restrict any use of the information to criminally investigate or prosecute any alcohol or drug abuse patient.[facility] CenterIn the event this information is protected by the Federal Confidentiality of Alcohol and Drug Abuse Patient Records regulations: The Federal rules restrict any use of the information to criminally investigate or prosecute any alcohol or drug abuse patient.[facility] CenterIn the event this information is protected by the Federal Confidentiality of Alcohol and Drug Abuse Patient Records regulations: The Federal rules restrict any use of the information to criminally investigate or prosecute any alcohol or drug abuse patient.[facility] Reason for Visit (unrecogniz ed section and content) ReasonCommentsLung CancerReasonCommentsOrdersReasonCommentsOrdersReasonComments Lung CancerReasonCommentsAppointmentPreOp BronchReasonCommentsPatient Update AppointmentReasonCommentsLung CancerLung MassReasonCommentsAppointmentSpecialty Diagnoses / ProceduresReferred By ContactReferred To ContactADMITTING Diagnoses Bronchiolar disease Procedures [facility] IN[facility] FLUOR GDNCE DX W/CELL WASHG SPX BRONCHOSCOPY [facility] H23 [address] [place] [address] Referral IDStatusReasonStart DateExpiration DateVisits RequestedVisits [id number]mLaulmxPsteiwbcYzhiuuh UpdateFuture AppointmentReasonCommentsPatient UpdateReasonCommentsCervical lymph node bx ReasonCommentsBiopsy RequestSpecialtyDiagnoses / ProceduresReferred By Contact Referred To ContactADMITTING Diagnoses Malignant neoplasm of unspecified part of unspecified bronchus or lung (HCC) Procedures BX/EXC LYMPH NODE NEEDLE SUPERFICIAL BIOPSY OR EXCISION LYMPH NODES(S) NEEDLE SUPERFICIAL [facility] Angio Hb6 [address] [place] [address] Referral IDStatusReasonHalfway DateExpiration DateVisits RequestedVisits [id number] ConfirmationReasonComments Anesthesia ConsultReasonCommentsPatient UpdateReasonCommentsNew PatientWould like to discuss lymph node removal.SpecialtyDiagnoses / ProceduresReferred By ContactReferred To ContactEnt - Otolaryngology Diagnoses Non-small cell cancer of left lung (HCC) 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) Procedures CONSULT TO ENT OFFICE/OUTPATIENT [facility] 60 MINUTES Abdi Israel MD [address] [place] [address] [place] [address] Referral IDStatusReasonStart DateExpiration DateVisits RequestedVisits [id number] PCP Requested Referral /[id number]cceAoybmtvmDxungeecn NMSpecialty Diagnoses / ProceduresReferred By ContactReferred To ContactMOLECULAR & FUNCTIONAL IMAGING Diagnoses Malignant neoplasm of unspecified part of unspecified bronchus or lung (HCC) Procedures NM PET/CT SKULL-THIGH SUBSEQUENT PET IMAGING CT ATTENUATION SKULL BASE MID-THIGH Abdi Israel MD [address] [place] [address] [place] [address] Molecular & Functional Imaging [address] [place] [address] Referral IDStatusReasonStart DateExpiration DateVisits RequestedVisits [id number] Auto-Generated Referral /[id number]j ConfirmationReasonCommentsRadiology CTSpecialtyDiagnoses / ProceduresReferred By ContactReferred To ContactCT IMAGING Diagnoses Lung mass Procedures CT CHEST WO IVCON DIAGNOSTIC COMPUTED TOMOGRAPHY THORAX W/O CNTRST Vitor Kaur MD [address] [place] [address] [address] [facility] [place] [address] Referral IDStatusReasonStart DateExpiration DateVisits RequestedVisits [id number] Auto-Generated Referral /[id number] / ProceduresReferred By ContactReferred To ContactMOLECULAR & FUNCTIONAL IMAGING Diagnoses Neoplasm of lung Procedures NM PET/CT SKULL-THIGH INITIAL PET IMAGING CT ATTENUATION SKULL BASE MID-THIGH Abdi Israel MD [address] [place] [address] [place] [address] Molecular & Functional Imaging [address] [place] [address] Referral IDStatusReasonStart DateExpiration DateVisits RequestedVisits [id number] Auto-Generated Referral /[id number] / ProceduresReferred By ContactReferred To ContactCT IMAGING Diagnoses Neoplasm of lung Procedures CT CHEST W IVCON CAT SCAN OF CHEST CONTRAST Abdi Israel MD [address] [place] [address] [place] [address] Ct [facility] Referral IDStatusReasonStart DateExpiration DateVisits RequestedVisits [id number] Auto-Generated Referral /[id number] / ProceduresReferred By ContactReferred To ContactCT IMAGING Diagnoses Malignant neoplasm of unspecified part of unspecified bronchus or lung (HCC) Procedures CT CHEST W IVCON DIAGNOSTIC COMPUTED TOMOGRAPHY THORAX W/CONTRAST Abdi Israel MD [address] [place] [address] [place] [address] [place] [address] Referral IDStatusReasonStart DateExpiration DateVisits RequestedVisits [id number] Auto-Generated Referral /[id number] Problem6 month ear checkReasonComments Radiology NMSpecialtyDiagnoses / ProceduresReferred By ContactReferred To ContactCT IMAGING Diagnoses Neoplasm of lung Procedures CT CHEST W IVCON DIAGNOSTIC COMPUTED TOMOGRAPHY THORAX W/CONTRAST Abdi Israel MD [address] [place] [address] [place] [address] [place] [address] Referral IDStatusReasonStart DateExpiration DateVisits RequestedVisits [id number] Auto-Generated Referral /[id number] RefillReasonCommentsEar Problem6 month check ears Care Teams (unrecognized sec tion and content) Team Status: Active Member Role Status Dates Adithya Kenyon MD Primary Care Provider Active Team Status: Inactive Member Role Status Dates Adithya Kenyon MD Primary Care Provider Active Start: October 27, 2024 End: October 27hristopher E Valery , MDAttending ProviderActiveStart: October 27, 2024 End: October 27, 2024 Team Status: Active Member Role Status Dates Adithya Kenyon MD Primary Care Provider Active Team Status: Active Member Role Status Dates Adithya Kenyon MD Primary Care Provide r, Referring Provider Active Start: April 06, 2024 End: April 06enjamin Sergo , DOAttending ProviderActiveStart: April 06, 2024 End: April 06, 2024 Team Status: Inactive Member Role Status Dates Adithya Kenyon MD Primary Care Provider Active Start: June 16, 2024 End: June 16hrlibia Rasmussen , MDAttending ProviderActiveStart: June 16, 2024 End: June 16, 2024[employer] DMEActiveStart: June 16, 2024 End: June 16, 2024 Team Status: Inactive Member Role Status Dates Adithya Kenyon MD Primary Care Provide r, Referring Provider Active Start: September 29, 2023 End: September 28hrlibia Rasmussen MDAttending ProviderActiveStart: September 29, 2023 End: September 29, 2023Team MemberRelationshipSpecialtyStart DateEnd Date Adithya Kenyon MD [address] [place] [address] [facility] Bgweyofo07/15/18Team MemberRelationshipSpecialtyStart Date End Date Adithya Kenyon MD [address] [place] [phone] [facility] - [facility] Ljjniakb30/15/18Team MemberRelationshipSpecialtyStart Date End Date Adithya Kenyon MD [address] [place] [address] PCP - [facility] Lknxztzx21/15/18Team MemberRelationshipSpecialtyStart Date End Date Adithya Kenyon MD [address] [place] [address] PCP - GeneralFamily Ehvxiklg62/15/18Team MemberRelationshipSpecialtyStart Date End Date Adithya Kenyon MD [address] [place] [address] PCP - GeneralFamily Ubxgvavv56/15/18Team MemberRelationshipSpecialtyStart Date End Date Adithya Kenyon MD [address] [place] [address] PCP - Generalmily Hauqipkh37/15/18Team MemberRelationshipSpecialtyStart Date End Date Adithya Kenyon MD [address] [place] [address] [facility] - [facility]/25/18Team MemberRelationshipSpecialtyStart Date End Date Adithya Kenyon MD [address] [place] [phone] [facility] Zboacldy21/15/18Team MemberRelationshipSpecialtyStart Date End Date Adithya Kenyon MD [address] [place] [phone] PCP - GeneralFamily Pxxqmhpb19/15/18Team MemberRelationshipSpecialtyStart Date End Date Adithya Kenyon MD PCP - GeneralFamily Ldzdgdjy83/15/18Team MemberRelationshipSpecialtyStart Date End Date Adithya Kenyon MD PCP - GeneralFamily Yuwxdtvq42/15/18 Team Status: Active Member Role Status Dates Adithya Kenyon MD Primary Care Provider Active Start: May 14, 2023 Stacia Garcia MDEmergency ProviderActiveStart: May 14, 2023 Darnell Coto Provider, Attending Provider, Other ProviderActiveStart: May 14, 2023 Team Status: Active Member Role Status Dates Adithya Kenyon MD Primary Care Provider Active Start: May 14, 2023 Stacia Garcia MDEmeeliseo ProviderActiveStart: May 14, 2023 Darnell Coto Provider, Attending Provider, Other ProviderActiveStart: May 14, 2023 Cassandra Andersen MDAttdavid ProviderActiveStart: May 14, 2023 End: May 17, 2023Team MemberRelationshipSpecialtyStart DateEnd Date Adithya Kenyon MD PCP - [facility]02/25/18 MemberRelationshipSpecialtyStart Date End Date Adithya Kenyon MD PCP - [facility]02/25/18Te MemberRelationshipSpecialtyStart Date End Date Adithya Kenyon MD PCP - [facility]02/25/18 MemberRelationshipSpecialtyStart Date End Date Adithya Kenyon MD PCP - [facility]02/25/18 MemberRelationshipSpecialtyStart Date End Date Adithya Kenyon MD PCP - [facility]02/25/18 MemberRelationshipSpecialtyStart Date End Date Adithya Kenyon MD PCP - [facility]02/25/18Te MemberRelationshipSpecialtyStart Date End Date Adithya Kenyon MD [facility] - [facility]02/25/18 Team Status: Inactive Member Role Status Dates Adithya Kenyon MD Primary Care Provider Active Start: December 03, 2023 End: December 02Stephanie Brennan ProviderActiveStart: December 03, 2023 End: December 03, 2023Team MemberRelationshipSpecialtyStart DateEnd Adithya Kenyon MD PCP - [facility]02/25/18Team MemberRelationshipSpecialtyStart Date End Adithya Kenyon MD [facility] - [facility]02/25/18 Team Status: Active Member Role Status Dates Adithya Kenyon MD Primary Care Provider Active Start: December 20, 2023 Bentley Wong ProviderActiveStart: December 20, 2023 Darnell Koroma Provider, Attending ProviderActiveStart: December 20, 2023 Team MemberRelationshipSpecialtyStart DateEnd Date Adithya Kenyon MD [facility] - [facility]02/25/18 Team Status: Inactive Member Role Status Dates Adithya Kenyon MD Primary Care Provider Active Start: December 21, 2023 End: December 23Bentley Castillo ProviderActiveStart: December 21, 2023 End: December 23Darnell Pelayo ProviderActive Start: December 21, 2023 End: December 23Stephanie Olson ProviderActiveStart: December 21, 2023 End: December 23Ulises Brennan ProviderActiveStart: December 21, 2023 End: December 24, 2023 Team Status: Active Member Role Status Dates Adithya Kenyon MD Primary Care Provider Active Start: December 21, 2023 Jesús Wongrmariana ProviderActiveStart: December 21, 2023 Mg Vaughn MDAdmit ProviderActiveStart: December 21, 2023 Cassandra Andersen MDOther ProviderActiveStart: December 21, 2023 Denver Rasmussen MDAttending Provider, Other ProviderActiveStart: December 21, 2023 Team MemberRelationshipSpecialtyStart DateEnd Date Adithya Kenyon MD PCP - [facility]02/25/18Team MemberRelationshipSpecialtyStart Date End Date Adithya Kenyon MD PCP - [facility]02/25/18Team MemberRelationshipSpecialtyStart Date End Date Adithya Kenyon MD PCP - [facility]02/25/18Team MemberRelationshipSpecialtyStart Date End Date Adithya Kenyon MD PCP - [facility]02/25/18Team MemberRelationshipSpecialtyStart Date End Date Adithya Kenyon MD PCP - [facility]02/25/18Team MemberRelationshipSpecialtyStart Date End Date Adithya Kenyon MD PCP - [facility]02/25/18 Team Status: Inactive Member Role Status Dates Adithya Kenyon MD Primary Care Provider Active Start: February 23, 2024 End: February 22axel Rasmussen , MDAttending ProviderActive Start: February 23, 2024 End: February 23, 2024 Team Status: Inactive Member Role Status Dates Adithya Kenyon MD Primary Care Provider Active Start: February 26, 2024 End: February 25Stephanie Brennan ProviderActive Start: February 26, 2024 End: February 26, 2024Team MemberRelationshipSpecialtyStart DateEnd Date Adithya Kenyon MD [address] [place] [address] [facility] - [facility]10/07/22Team MemberRelationshipSpecialtyStart DateEnd Date Adithya Kenyon MD [address] [place] [address] PCP - Generalmi Medicine10/07/22Team MemberRelationshipSpecialtyStart DateEnd Date Adithya Kenyon MD PCP - Generalmily Yvfvomaj91/15/18Team MemberRelationshipSpecialtyStart Date End Date Adithya Kenyon MD [address] [place] [address] PCP - GeneralFamily Medicine10/07/22Team MemberRelationshipSpecialtyStart DateEnd Date Adithya Kenyon MD [address] [place] [address] PCP - Generalmily Medicine10/07/22Team MemberRelationshipSpecialtyStart DateEnd Date Adithya Kenyon MD PCP - GeneralFamily Medicine10/07/22Team MemberRelationshipSpecialtyStart DateEnd Date Adithya Kenyon MD [address] [place] [phone] [facility]08/16/24 Team Status: Inactive Member Role Status Dates Adithya Kenyon MD Primary Care Provider Active Start: October 27, 2024 End: October 27hristophrahel Rasmussen MDAttending ProviderActiveStart: October 27, 2024 End: October 27, 2024 Continuous Active and Recently Administ ered Medications (unrecognized section and content) Medication Order05/07//// NaCl 0.9% iv infusion 5-30 mL/hr, INTRAVENOUS, CONTINUOUS, Starting on Thu05/09/22 at 0730, Until 05/10/22 at 0304, Preprocedure * 0730 (Due) Medication Order09/13////08/2023 lidocaine (PF) 20 mg/mL (2 %) injection (XYLOCAINE) (CANCELED) SUBCUTANEOUS, X (OR/PROCEDURE) PRN, Starting on Thu09/16/23 at 1042, Until Thu09/16/23 at 1122, Intraprocedure * 1042 (Given - Provider: Khushboo Mcintyre MD, MD) Goals (unrecognized section [...] BE BASED ON THE PRIMARY CLINICAL RECORDS. [employer] [facility]. provides no warranty or guarantee of the accuracy or completeness of information in this document.
== END 2025-02-20 13:05 | disposition home or self-care (01) ==
LOC: RAD 13:04
PROVIDERS: PCP Family Medicine; Visit Provider Family Medicine
DX: M25.552 Pain in left hip (principal); M16.0 Bilateral primary osteoarthritis of hip
CPT/HCPCS: 73523

== ENCOUNTER 2025-03-20 13:40 | Outpatient (OUT) | payer OTHER, SELFPAY ==
--- NOTE | 2025-03-20 13:47 | XR_ITS ---
The [address] [address] Patient Name: PHOEBE STANLEY MRN: [id number] date: 1960 Sex: F Assigned Patient Location: [facility] Current Patient Location: [facility] Accession/Order Number: [id number] Exam Date: 03/20/2025 13:50 Report Date: 03/20/2025 16:24 At the request of: ADITHYA KENYON MD Procedure: XR chest 2V XR chest 2V 03/20/2025 1:59 PM SIGNS AND SYMPTOMS: Left-sided chest pain PROTOCOL: Frontal and lateral radiographs of the chest COMPARISON: 04/04/2024 FINDINGS: The trachea is midline. The heart and mediastinal structures are within normal limits. Similar interstitial prominence and pleural based scarring is noted. There has been interval improvement in airspace opacity in the right perihilar region extending towards the right lung base when compared to the prior exam. The lung parenchyma is hyperlucent suggesting emphysematous change. The bony thorax is intact. XR/XR chest 2V IMPRESSION: Emphysematous changes are noted with chronic interstitial prominence and pleural based scarring. Interval resolution of airspace opacity on the right. Impression dictated by: Hudson Worrell M.D. 03/20/2025 4:24 PM Dictation Location: [place] [address] Electronically authenticated by: [id number] Date: 03/20/2025 16:24
== END 2025-03-20 13:41 | disposition home or self-care (01) ==
LOC: LAB 13:41 → RAD 13:45
PROVIDERS: PCP Family Medicine; Visit Provider Family Medicine
DX: R06.02 Shortness of breath (principal)
CPT/HCPCS: 71046